=== PATIENT | female | born 1960 | race Caucasian/White ===

== ENCOUNTER 2018-01-25 11:51 | Emergency (ER) | payer BC, SELFPAY ==
--- OUTSIDE RECORDS SUMMARY | 2018-01-25 11:54 | XMS REPORT ---
:1960 Author Organization [employer] Care Team Providers Name Role Phone TravisLuciano Provider Role Unavailable Allergies No Known Allergies Problems Problem Type Condition Code Onset Dates Condition Status Problem Restless leg syndrome G25.81 Active Problem Fibromyalgia M79.7 Active Problem Diabetes type 2, controlled E11.9 Active Problem Benign essential HTN I10 Active Problem Vitamin D deficiency E55.9 Active Problem Rheumatoid arthritis M06.9 Active Problem Morbid obesity E66.01 Active Problem Diabetic neuropathy E11.40 Active Problem Fatty liver K76.0 Active Problem Insomnia G47.00 Active Problem GERD without esophagitis K21.9 Active Problem Ankylosing spondylitis of multiple M45.0 Active sites in spine Problem Hyperlipidemia, mixed E78.2 Active Problem Overactive bladder N32.81 Active Problem Circadian rhythm sleep disorder, 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
--- OUTSIDE RECORDS SUMMARY | 2018-01-25 11:54 | XMS REPORT | Summary of Care ---
:1960 Author Name Jocelynn Thomas M.A. Address Unavailable Unavailable , Care Team Providers Name Role Phone LAVERN Álvarez, RAUL Unavailable Unavailable BLACK HOOPER N.P. Unavailable Unavailable Unavailable Unavailable Unavailable Functional Status Name Dates Details Functional status health issues are not documented Status: Name Dates Details Cognitive status health issues are not documented Status: Problems Name Dates Details Overactive bladder (596.51, N32.81) Status: Active Obesity (278.00, E66.9) Status: Active Hematuria, microscopic (599.72, R31.29) Status: Active Cystitis, acute (595.0, N30.00) Status: Active Post-operative state (V45.89, Z98.890) Status: Active UTI (urinary tract infection) (599.0, N39.0) Status: Active Postop check (V67.00, Z09) Status: Active Enuresis (788.30, R32) Status: Active Chronic cystitis (595.2, N30.20) Status: Active Frequency (788.41, R35.0) Status: Active Obese (278.00, E66.9) Status: Active Recent urinary tract infection (V13.02, Z87.440) Status: Active Yeast vaginitis (112.1, B37.3) Status: Active Vaginitis Status: Active Vaginal burning (625.8, N94.9) Status: Active Vaginal irritation (623.9, N89.8) Status: Active Vaginal discharge (623.5, N89.8) Status: Active Bacterial vaginosis (616.10, N76.0) Status: Active Urinary urgency (788.63, R39.15) Status: Active Nocturia (788.43, R35.1) Status: Active Mixed urge and stress incontinence (788.33, N39.46) Status: Active Medications Name Dates Details Abilify 20 MG Oral Tablet 1 po QHS Refills: 0 Active Savella 50 MG Oral Tablet 1 po QHS Refills: 0 Active Plavix 75 MG Oral Tablet Refills: 0 Active Simvastatin 40 MG Oral Tablet Refills: 0 Active Tolterodine Tartrate ER 4 MG Oral Capsule Extended Release 24 Hour 1 PO QD Quantity: 30 Refills: 5 RUFUS Alexander BLACK Start : 09-Jun-2017 Active SulfaSALAzine 500 MG Oral Tablet Refills: 0 Active Leflunomide 20 MG Oral Tablet Refills: 0 Active CeleBREX CAPS Refills: 0 Active Hydroxychloroquine Sulfate 200 MG Oral Tablet Refills: 0 Active Folic Acid 1 MG Oral Tablet Refills: 0 Active Pilocarpine HCl - 7.5 MG Oral Tablet Refills: 0 Active HydrOXYzine HCl - 25 MG Oral Tablet Refills: 0 Active TraZODone HCl TABS Refills: 0 Active Tresiba FlexTouch SOPN Refills: 0 Active Bydureon PEN Refills: 0 Active Allergies and Adverse Reactions Name Dates Details Lyrica CAPS (Allergy) Status: Active Past Medical History Name Dates Details History of arthritis (V13.4, Z87.39) Status: Resolved History of Chronic obstructive pulmonary disease, unspecified COPD type (496, J44.9) Status: Resolved History of depression (V11.8, Z86.59) Status: Resolved History of diabetes mellitus (V12.29, Z86.39) Status: Resolved History of essential hypertension (V12.59, Z86.79) Status: Resolved History of fibromyalgia (V13.59, Z87.39) Status: Resolved History of Obstructive sleep apnea syndrome (327.23, G47.33) Status: Resolved Procedures Procedure Dates Details History of Ankle Surgery Completed History of Hysteroscopy With Endometrial Ablation Completed Immunization Name Dates Details Immunizations not documented Family History Name Dates Details Family history of diabetes mellitus (V18.0, Z83.3) Status: Active Family history of lung cancer (V16.1, Z80.1) Status: Active Family history of hypertension (V17.49, Z82.49) Status: Active Name Dates Details Family history of stroke (V17.1, Z82.3) Status: Active Name Dates Details Family history of diabetes mellitus (V18.0, Z83.3) Status: Active Social History Name Dates Details - Status: Name Dates Details Never smoker Vital Signs Date Test Result Details :36 BP Systolic 142 mm[Hg] Status: Comments: Location: LUE; Position: Sitting BP Diastolic 80 mm[Hg] Status: Comments: Location: LUE; Position: Sitting Height 71 in Status: Weight 298 lb Status: Body Mass Index Calculated 41.56 kg/m2 Status: Body Surface Area Calculated 2.5 m2 Status: Temperature 97.4 f Status: :26 BP Systolic 140 mm[Hg] Status: Comments: Location: LUE; Position: Sitting BP Diastolic 80 mm[Hg] Status: Comments: Location: LUE; Position: Sitting Height 71 in Status: Weight 298 lb Status: Body Mass Index Calculated 41.56 kg/m2 Status: Body Surface Area Calculated 2.5 m2 Status: Temperature 97.9 f Status: :28 BP Systolic 118 mm[Hg] Status: Comments: Location: LUE; Position: Sitting BP Diastolic 80 mm[Hg] Status: Comments: Location: LUE; Position: Sitting Height 71 in Status: Weight 298 lb Status: Body Mass Index Calculated 41.56 kg/m2 Status: Body Surface Area Calculated 2.5 m2 Status: :20 BP Systolic 160 mm[Hg] Status: Comments: Location: LUE; Position: Sitting BP Diastolic 92 mm[Hg] Status: Comments: Location: LUE; Position: Sitting Height 71 in Status: Weight 298 lb Status: Body Mass Index Calculated 41.56 kg/m2 Status: Body Surface Area Calculated 2.5 m2 Status: Temperature 98.2 f Status: Results Date Description Value Details [id number] [O] Urine Dipstick (In Office) LEUKOCYTES 2+ (Abnormal) NITRITE NEG (Normal) UROBILINOGEN 0.2 (Normal) PROTEIN NEG (Normal) pH 7.0 (Normal) URINE BLOOD 2+ (Abnormal) SPECIFIC GRAVITY 1.010 (Normal) KETONES NEG (Normal) BILIRUBIN NEG (Normal) GLUCOSE 250 MG (Abnormal) [id number] [QLH] BV/ VAGINITIS PANEL DNA PROBE AFFIRM Trichomonas vaginalis DNA Negative Range: Negative Gardnerella vaginalis DNA Positive (Abnormal) Range: Negative Grace sp. DNA Positive (Abnormal) Range: Negative [id number] [QLH] CULTURE, URINE, ROUTINE Comments: Source: Urine, Clean CatchBody Site: ORGANISM Escherichia coli FINAL REPORT >100,000 CFU/mL Escherichia coli 10,000 - 50,000 CFU/mL Skin Nina [id number] [H] E-ONE Comments: Source: Urine, Clean CatchBody Site: ORGANISM Escherichia coli Ciprofloxacin .75 (Susceptible) Levofloxacin 1.5 (Susceptible) Trimethoprim/Sulfamethoxazole 32 (Resistant) Ceftriaxone .094 (Susceptible) Comments: S=Susceptible, R=Resistant, I= Intermediate, N/A=Not Applicable Plan of Care Name Dates Details Planned Observations Planned Goals not documented Planned Encounters Appointment; BLACK HOOPER NP On: 10-Jul-2017 9:00 Interventions Provided PlanPercutaneous tibial nerve stimulation treatment, weekly #4. Questions answered. Discuss procedure, expectations, compliance with medications, diet and activity. Contact office for any questions or concerns. Will continue with Percutaneous tibial nerve stimulation as scheduled in one week, treatment # 5 using right leg Instructions Name Dates Details Instructions not documented Encounters Appointment; RAUL PUCKETT M.D. On: 05-Jul-2015 8:30 Encounter Diagnosis: Problem not documented Appointment; RAUL PUCKETT M.D. On: 02-Aug-2015 8:30 Encounter Diagnosis: Problem not documented Appointment; RAUL PUCKETT M.D. On: 10-Aug-2015 9:30 Encounter Diagnosis: Problem not documented Appointment; RAUL PUCKETT M.D. On: 21-Sep-2015 13:00 Encounter Diagnosis: Problem not documented Appointment; RAUL PUCKETT M.D. On: 20-Oct-2015 10:10 Encounter Diagnosis: Problem not documented Appointment; BLACK HOOPER NP On: 30-Nov-2015 9:00 Encounter Diagnosis: Problem not documented Appointment; BLACK HOOPER NP On: 12-Sep-2016 13:20 Encounter Diagnosis: Problem not documented Appointment; BLACK HOOPER NP On: 28-Nov-2016 10:10 Encounter Diagnosis: Problem not documented Appointment; BLACK HOOPER NP On: 19-Dec-2016 10:10 Encounter Diagnosis: Problem not documented Appointment; BLACK HOOPER NP On: 09-Jun-2017 9:20 Encounter Diagnosis: Problem not documented Appointment; BLACK HOOPER NP On: 12-Jun-2017 13:20 Encounter Diagnosis: Problem not documented Appointment; BLACK HOOPER NP On: 19-Jun-2017 15:20 Encounter Diagnosis: Problem not documented Appointment; BLACK HOOPER NP On: 26-Jun-2017 9:00 Encounter Diagnosis: Problem not documented Appointment; LAVERN HUFFMAN On: 03-Jul-2017 9:00 Encounter Diagnosis: Problem not documented
--- OUTSIDE RECORDS SUMMARY | 2018-01-25 11:54 | XMS REPORT ---
:1960 Author Organization [employer] Care Team Providers Name Role Phone Luciano Travis Provider Role Unavailable Allergies No Known Allergies Problems Problem Type Condition Code Onset Dates Condition Status Assessment GERD without esophagitis K21.9 Active Assessment Overactive bladder N32.81 Active Assessment Insomnia G47.00 Active Assessment Iron deficiency anemia due to D50.0 Active chronic blood loss Problem Obstructive sleep apnea G47.33 Active Assessment Ankylosing spondylitis of multiple M45.0 Active sites in spine Problem Bipolar disorder F31.9 Active Assessment Bipolar disorder F31.9 Active Problem Restless leg syndrome G25.81 Active Problem Fibromyalgia M79.7 Active Problem Diabetes type 2, controlled E11.9 Active Problem Benign essential HTN I10 Active Problem Vitamin D deficiency E55.9 Active Assessment Hyperlipidemia, mixed E78.2 Active Assessment Obstructive sleep apnea G47.33 Active Problem Rheumatoid arthritis M06.9 Active Assessment Rheumatoid arthritis M06.9 Active Problem Morbid obesity E66.01 Active Problem Diabetic neuropathy E11.40 Active Problem Fatty liver K76.0 Active Problem Insomnia G47.00 Active Problem GERD without esophagitis K21.9 Active Problem Ankylosing spondylitis of multiple M45.0 Active sites in spine Assessment Benign essential HTN I10 Active Assessment Diabetes type 2, controlled E11.9 Active Problem Hyperlipidemia, mixed E78.2 Active Problem Overactive bladder N32.81 Active Problem Circadian rhythm sleep disorder, 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 Problem Iron deficiency anemia due to D50.0 Active chronic blood loss Medications Medication Code Code Instructions Start End Status Dosage System Date Date Leflunomide ND 32287771535 20 MG Orally Active 1 tablet Once a day Zestoretic [facility] 53736482898 20-12.5 MG Active 1 tablet Orally Once a day Omeprazole ND 40896828420 40 MG Orally June 25, Active 1 capsule Once a day 2017 Simvastatin ND 57519821654 40 MG Orally Active 1 tablet Once a day in the evening Plaquenil ND 49531387057 200 MG Orally Active 1 tablet Once a day with food or milk Vistaril [facility] 95619026516 25 MG Orally Active 1 capsule every 8 hrs as needed Trospium Chloride [facility] 04152073060 20 MG Orally May Inactive 1 tablet Once a day 16, at bedtime 2018 on an empty stomach Dexilant [facility] 89426806110 60 MG Orally Inactive 1 capsule Once a day Hemocyte Plus [facility] 91115169547 106-1 MG Active 1 capsule Orally Once a day Celebrex [facility] 44269173203 200 MG Orally Active 1 capsule Once a day with food Iron [facility] 53615511772 325 (65 Fe) MG Active 1 tablet Orally Once a day Trazodone HCl [facility] 66430554243 100 MG Orally Active 1 tablet Once a day at bedtime Restasis [facility] 45792999724 0.05 % Active 1 drop Ophthalmic into Twice a day affected eye Tresiba FlexTouch [facility] 16768275764 200 UNIT/ML Active not Subcutaneous defined Savella [facility] 70850460404 50 MG Orally Active 2 tablets Twice a day Abilify [facility] 49857632338 20 MG Orally Active 1 tablet Once a day Bydureon [facility] 65677114497 2 MG Active not Subcutaneous defined Tolterodine [facility] 48858287485 4 MG Orally Active 1 capsule Tartrate ER Once a day Pilocarpine HCl [facility] 27766580570 7.5 MG Orally Active 1 tablet Three times a day Cyclobenzaprine [facility] 67554690050 10 MG Orally Active 1 tablet HCl Three times a as needed day Folic Acid [facility] 33330933498 1 MG Orally Active 1 tablet Once a day Results No Known Results Summary Purpose [employer] Submission
--- OUTSIDE RECORDS SUMMARY | 2018-01-25 11:54 | XMS REPORT ---
:1960 Author Organization [employer] Care Team Providers Name Role Phone TravisLisah Provider Role Unavailable Allergies, Adverse Reactions, Alerts Substance Reaction Event Type Invokana Info Not Available Drug Allergy Metformin HCl Info Not Available Drug Allergy Lyrica Info Not Available Drug Allergy Glimepiride Info Not Available Drug Allergy Problems Problem Type Condition Code Onset Dates Condition Status Problem Diabetes type 2, controlled E11.9 Active Problem Diabetic neuropathy E11.40 Active Problem Fibromyalgia M79.7 Active Problem Rheumatoid arthritis M06.9 Active Assessment Primary osteoarthritis of both knees M17.0 Active Problem Benign essential HTN I10 Active Assessment Rheumatoid arthritis M06.9 Active Assessment Ankylosing spondylitis of multiple M45.0 Active sites in spine Problem Primary osteoarthritis of both knees M17.0 Active Problem Insomnia G47.00 Active Problem Morbid obesity E66.01 Active Problem Vitamin D deficiency E55.9 Active Problem Fatty liver K76.0 Active Problem Ankylosing spondylitis of multiple M45.0 Active sites in spine Problem Circadian rhythm sleep disorder, 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 Problem GERD without esophagitis K21.9 Active Problem Overactive bladder N32.81 Active Problem Obstructive sleep apnea G47.33 Active Problem Iron deficiency anemia due to D50.0 Active chronic blood loss Problem Bipolar disorder F31.9 Active Problem Hyperlipidemia, mixed E78.2 Active Problem Restless leg syndrome G25.81 Active Medications Medication Code Code Instructions Start End Status Dosage System Date Date Hydrocodone-Acetam ND 23117795682 5-325 MG Orally Nov 10, Active 1 tablet inophen every 12 hrs 2018 as needed Celebrex ND 26361329998 200 MG Orally Active 1 capsule Once a day with food Zestoretic ND 20706737027 20-12.5 MG Active 1 tablet Orally Once a day Pilocarpine HCl ND 03606913856 7.5 MG Orally Active 1 tablet Three times a day Hemocyte Plus ND 74608497876 106-1 MG Orally Active 1 capsule Once a day Toujeo SoloStar ND 48029211704 300u/ml Active not subcutaneously defined once daily Vistaril [facility] 24128214432 25 MG Orally Active 1 capsule every 8 hrs as needed Cyclobenzaprine [facility] 49777050493 10 MG Orally Active 1 tablet HCl Three times a as needed day Restasis [facility] 90305125212 0.05 % Active 1 drop Ophthalmic Twice into a day affected eye Leflunomide [facility] 64801605894 20 MG Orally Active 1 tablet Once a day Bydureon [facility] 51163833023 2 MG Active not Subcutaneous defined Omeprazole [facility] 04466686235 40 MG Orally Active 1 capsule Once a day Simvastatin ND 24435605838 40 MG Orally Active 1 tablet Once a day in the evening Tolterodine [facility] 25029840692 4 MG Orally Once Active 1 capsule Tartrate ER a day Savella [facility] 60706167478 50 MG Orally Active 2 tablets Twice a day Abilify [facility] 02559343125 20 MG Orally Active 1 tablet Once a day Iron [facility] 68826178809 325 (65 Fe) MG Active 1 tablet Orally Once a day Humalog [facility] 98028149343 100 UNIT/ML Active as Subcutaneous directed Plaquenil [facility] 72588561538 200 MG Orally Active 1 tablet Once a day with food or milk Folic Acid [facility] 42828441750 1 MG Orally Once Active 1 tablet a day Trazodone HCl [facility] 51672515097 100 MG Orally Active 1 tablet Once a day at bedtime Results No Known Results Summary Purpose [employer] Submission
--- OUTSIDE RECORDS SUMMARY | 2018-01-25 11:54 | XMS REPORT ---
:1960 Author Organization [employer] Care Team Providers Name Role Phone Luciano Travis Provider Role Unavailable Allergies No Known Allergies Problems Problem Type Condition Code Onset Dates Condition Status Assessment GERD without esophagitis K21.9 Active Assessment Overactive bladder N32.81 Active Assessment Insomnia G47.00 Active Assessment Iron deficiency anemia due to D50.0 Active chronic blood loss Assessment Ankylosing spondylitis of multiple M45.0 Active sites in spine Problem Obstructive sleep apnea G47.33 Active Assessment Bipolar disorder F31.9 Active Problem Bipolar disorder F31.9 Active Assessment Rheumatoid arthritis M06.9 Active Problem Restless leg syndrome G25.81 Active Problem Fibromyalgia M79.7 Active Problem Diabetes type 2, controlled E11.9 Active Problem Benign essential HTN I10 Active Problem Vitamin D deficiency E55.9 Active Assessment Benign essential HTN I10 Active Assessment Hyperlipidemia, mixed E78.2 Active Problem Rheumatoid arthritis M06.9 Active Assessment Obstructive sleep apnea G47.33 Active Problem Morbid obesity E66.01 Active Problem Diabetic neuropathy E11.40 Active Problem Fatty liver K76.0 Active Problem Insomnia G47.00 Active Problem GERD without esophagitis K21.9 Active Problem Ankylosing spondylitis of multiple M45.0 Active sites in spine Assessment Diabetes type 2, controlled E11.9 Active Problem Hyperlipidemia, mixed E78.2 Active Problem Overactive bladder N32.81 Active Problem Circadian rhythm sleep disorder, 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 Problem Iron deficiency anemia due to D50.0 Active chronic blood loss Medications Medication Code Code Instructions Start End Status Dosage System Date Date Celebrex [facility] 63875863485 200 MG Orally Active 1 capsule Once a day with food Cyclobenzaprine [facility] 04958784640 10 MG Orally Active 1 tablet HCl Three times a as needed day Hemocyte Plus [facility] 94585090404 106-1 MG Orally Active 1 capsule Once a day Leflunomide [facility] 16621084081 20 MG Orally Active 1 tablet Once a day Omeprazole [facility] 55293158997 40 MG Orally Active 1 capsule Once a day Savella [facility] 59428669741 50 MG Orally Active 2 tablets Twice a day Simvastatin ND 75495190339 40 MG Orally Active 1 tablet Once a day in the evening Pilocarpine HCl [facility] 35329741984 7.5 MG Orally Active 1 tablet Three times a day Zestoretic [facility] 94237994202 20-12.5 MG Active 1 tablet Orally Once a day Iron [facility] 35656899187 325 (65 Fe) MG Active 1 tablet Orally Once a day Humalog [facility] 48924091188 100 UNIT/ML Active as Subcutaneous directed Abilify [facility] 99301920350 20 MG Orally Active 1 tablet Once a day Restasis [facility] 51236434907 0.05 % Active 1 drop Ophthalmic Twice into a day affected eye Bydureon [facility] 02954436787 2 MG Active not Subcutaneous defined Plaquenil [facility] 24464317158 200 MG Orally Active 1 tablet Once a day with food or milk Folic Acid [facility] 91158004583 1 MG Orally Once Active 1 tablet a day Tresiba FlexTouch [facility] 83423422793 200 UNIT/ML Inactive not Subcutaneous defined Toujeo SoloStar [facility] 78436187483 300u/ml Active not subcutaneously defined once daily Vistaril [facility] 13882066961 25 MG Orally Active 1 capsule every 8 hrs as needed Trazodone HCl [facility] 16894276273 100 MG Orally Active 1 tablet Once a day at bedtime Tolterodine [facility] 23769009126 4 MG Orally Once Active 1 capsule Tartrate ER a day Results No Known Results Summary Purpose [employer] Submission
--- OUTSIDE RECORDS SUMMARY | 2018-01-25 11:54 | XMS REPORT | Clinical Summary ---
:1960 Author Organization [facility] Address [address] [place] [address] Care Team Providers Name Role Phone Asked, No Pcp Primary Care Provider Unavailable Allergies Active Allergy Reactions Severity Noted Date Comments Lactase GI Intolerance 12/20/2015 Gabapentin Other (See Comments) 12/20/2015 Got real dizzy Pregabalin Swelling 12/20/2015 Medications Medication Sig Dispensed Refills Start Date End Date Status folic acid (FOLVITE) 1 Take 2 mg by 0 Active MG tablet mouth daily. METHOTREXATE SODIUM INJ Inject 0.7 mL as 0 Active directed once a week at 4pm. celecoxib (CeleBREX) 200 Take 200 mg by 0 Active MG capsule mouth 2 (two) times a day. hydroxychloroquine Take by mouth 2 0 Active (PLAQUENIL) 200 mg (two) times a tablet day. cyclobenzaprine Take 10 mg by 0 Active (FLEXERIL) 10 MG tablet mouth 3 (three) times a day. PILOCARPINE HCL ORAL Take 7.5 mg by 0 Active mouth 3 (three) times a day. LISINOPRIL-HCTZ 20-12.5 Take 2 tablets 0 Active MG COMBO DOSE by mouth daily. dexlansoprazole Take 60 mg by 0 Active (DEXILANT) 60 mg capsule mouth daily. exenatide microspheres Inject 2 mg 0 Active (BYDUREON) 2 mg/0.65 mL under the skin pen injector every 7 days. insulin degludec Inject 120 Units 0 Active (TRESIBA FLEXTOUCH under the skin U-100) 100 unit/mL (3 daily. mL) insulin pen simvastatin (ZOCOR) 40 Take 40 mg by 0 Active MG tablet mouth nightly. aspirin (ECOTRIN) 81 MG Take 81 mg by 0 Active enteric coated tablet mouth daily. clopidogrel (PLAVIX) 75 Take 75 mg by 0 Active mg tablet mouth daily. ARIPiprazole (ABILIFY) Take 20 mg by 0 Active 10 MG tablet mouth daily. milnacipran (SAVELLA) 50 Take 50 mg by 0 Active mg tablet mouth 2 (two) times a day. suvorexant (BELSOMRA) 20 Take by mouth 0 Active mg tablet nightly. armodafinil (NUVIGIL) Take 250 mg by 0 Active 250 mg tablet mouth daily. ALPRAZolam (NIRAVAM) 0.5 Take 0.5 mg by 0 Active MG disintegrating tablet mouth 2 (two) times a day as needed for anxiety. cycloSPORINE (RESTASIS) Administer 1 0 Active 0.05 % ophthalmic drop to both emulsion eyes 2 (two) times a day. bromfenac (XIBROM) 0.09 Administer 1 0 Active % ophthalmic solution drop into the left eye daily. cranberry extract Take 1 capsule 0 Active (ELLURA) 200 mg capsule by mouth daily. capsule Active Problems Not on file Family History Medical History Relation Name Comments Stroke Father Lung cancer Mother Relation Name Status Comments Father Mother Social History Tobacco Use Types Packs/Day Years Used Date Never Smoker Tobacco Cessation: Counseling Given: No Alcohol Use Drinks/Week oz/Week Comments No Sex Assigned at Date Recorded Not on file Job Start Date Occupation Industry Not on file Not on file Not on file Travel History Travel Start Travel End No recent travel history available. Last Filed Vital Signs Not on file Plan of Treatment Not on file Results Not on fileafter 01/24/2017 Insurance Payer Benefit Plan / Group Subscriber ID Type Phone Address [facility] O/FEDERAL xxxxxxxxxxxx PPO EMPL PPO CVCP [facility] xxxxxxxxxxxx PPO [address] [facility], [address] [place] [address] Advance Directives Patient has advance care planning documents on file. For more information, please contact:[place] [address]
[2018-01-25 12:48] LABS: Blood Gas Oxyhemoglobin 90.7 % (94-97); Blood O2 Saturation 92.8 % (92-98.5)
[2018-01-25] MEDS ORDERED: NA CHLORIDE 0.9% 1,000 ML ONE (13:10)
[2018-01-25 13:16] LABS: Urine Blood TRACE (NEG); Urine Glucose TRACE (NEG); Urine Protein TRACE (NEG); Urine pH 5.5 (5.0-7.0)
[2018-01-25 13:23] LABS: Absolute Monocytes 0.5 K/uL (0.1-1.3); Absolute Neutrophil 5.7 K/uL (1.8-8.0); Basophils % 0.6 % (0-1.3); Eosinophils % 1.2 % (0-4.4); Hematocrit 39.7 % (36.0-45.0); Lymphocytes % 24.2 % (15.3-44.8); MCH 27.3 pg (27.0-35.0); MCV 82.1 fL (80-100); Monocytes % 6.3 % (3.3-12.3); RBC Red Blood Cell Count 4.83 M/uL (3.86-4.86)
[2018-01-25 13:26] LABS: Urine Bacteria 20-50 /HPF (<20); Urine Culture Reflex Order NOT NEEDED; Urine RBC 20-50 /HPF (NONE SEEN)
[2018-01-25 13:39] LABS: ALT/SGPT 47 U/L (12-78); AST/SGOT 31 U/L (15-37); Albumin 3.4 g/dL (3.4-5.0); Alkaline Phosphatase 120 U/L (45-117); BUN Blood Urea Nitrogen 14 mg/dL (7-18); Bicarbonate 31 mmol/L (21-32); Bilirubin Direct 0.1 mg/dL (0-0.2); Bilirubin Total 0.3 mg/dL (0.2-1.0); Glucose Level 72 mg/dL (74-106); Lipase 198 U/L (73-393); Potassium 3.6 mmol/L (3.5-5.1); Protein, Total 8.3 g/dL (6.4-8.2); Sodium Level 137 mmol/L (136-145)
--- NOTE | 2018-01-25 15:05 | RAD REPORT ---
EXAM DESCRIPTION: CT - Abdomen Pelvis W Contrast - 01/25/2018 2:54 pm CLINICAL HISTORY: Abdominal pain COMPARISON: None. TECHNIQUE: Biphasic, helical CT imaging of the abdomen and pelvis was performed following 100 ml non -ionic IV contrast. No oral contrast administered. All CT scans are performed using dose optimization technique as appropriate and may include automated exposure control or mA/KV adjustment according to patient size. FINDINGS: No suspicious findings in the lung bases. Liver shows diffuse fatty infiltration. No focal liver lesion. Spleen and pancreas show no suspicious findings. Gallbladder and biliary tree are also without suspicious finding. Symmetric renal function is seen with no hydronephrosis or suspicious renal mass. No pyelonephritis o r acute parenchymal process. No bladder abnormalities. No adrenal abnormalities. No dilated bowel loops or bowel wall thickening. No free air, free fluid or inflammatory stranding. No hernia, mass or bulky lymphadenopathy. No uterus or right ovarian abnormality. Left ovary demonst rates a 2.4 centimeter ovarian or paraovarian cyst. Long-term significance is doubtful. No suspicious bony findings. IMPRESSION: Contrast enhanced CT abdomen and pelvis showing no acute finding. Approximately 2.4 centimeter left ovarian or paraovarian cyst. Diffuse fatty infiltration of the liver.
[2018-01-25] MEDS ORDERED: CEFTRIAXONE/SWI 1gm 1 GM/10 ML SYR ONE (15:38)
--- NOTE | 2018-01-25 16:40 | RAD REPORT ---
EXAM DESCRIPTION: RAD - Chest Single View - 01/25/2018 4:00 pm CLINICAL HISTORY: Shortness of breath COMPARISON: November 2015 TECHNIQUE: AP portable chest image was obtained 1547 hours . FINDINGS: Lung volumes are low. Large body habitus and under penetrated portable technique accentuat e heart, vasculature and lung markings. No focal process seen. Failure and volume overload are not waldron spected. Heart and vasculature are normal. No measurable pleural effusion and no pneumothorax. No acu te bony abnormality seen. No acute aortic findings suspected. IMPRESSION: Limited portable study without acute cardiopulmonary finding. No significant change from comparison.
--- NOTE | 2018-01-25 16:55 | ER ---
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 Transition of care: patient was not received from another setting of care. Onset of symptoms was January 25, 2018. Risk Assessment: Do you want to hurt yourself or someone else? Patient reports no desire to harm self or others. Initial Sepsis Screen: Does the patient meet any 2 criteria? No. Patient's initial sepsis screen is negative. Does the patient have a suspected source of infection? No. Patient's initial sepsis screen is negative. Care prior to arrival: None. 11:59 Method Of Arrival: Ambulatory 11:59 Acuity: JERRY 3 hj Triage Assessment: 12:02 General: Appears in no apparent distress. uncomfortable, Behavior is cooperative, hj appropriate for age, agitated. Pain: Denies pain. Historical: - Allergies: 12:02 Lyrica; hj 12:02 Methylprednisolone; hj - PMHx: 12:02 Depression; Diabetes - NIDDM; Hyperlipidemia; Hypertension; insomnia; osteoarthritis; hj Rheumatoid Arthritis; - PSHx: 12:02 stem cell therapy on ankle; tendon in left leg; Uretheral; rt arm; Tonsillectomy; Tubal hj ligation; - Immunization history:: Adult Immunizations not up to date. - Social history:: Smoking status: Patient/guardian denies using tobacco, Patient/guardian denies using alcohol. - Ebola Screening: : Patient negative for fever greater than or equal to 101.5 degrees Fahrenheit, and additional compatible Ebola Virus Disease symptoms Patient denies exposure to infectious person Patient denies travel to an Ebola-affected area in the 21 days before illness onset. Screenin:03 Abuse screen: Denies threats or abuse. Denies injuries from another. Nutritional hj screening: No deficits noted. Tuberculosis screening: No symptoms or risk factors identified. Fall Risk None identified. Assessment: 12:12 General: Appears in no apparent distress. comfortable, Behavior is calm, cooperative, aj1 appropriate for age. Pain: Denies pain. Neuro: Level of Consciousness is awake, alert, obeys commands, Speech is normal, Facial symmetry appears normal, Reports fatigue, light headedness. Cardiovascular: Patient's skin is warm and dry. Respiratory: Airway is patent Respiratory effort is even, unlabored, Respiratory pattern is regular, symmetrical. GI: Abdomen is non-distended, Reports nausea, Patient currently denies diarrhea, vomiting. : No signs and/or symptoms were reported regarding the genitourinary system. EENT: No signs and/or symptoms were reported regarding the EENT system. Derm: No signs and/or symptoms reported regarding the dermatologic system. Skin is pink, warm \T\ dry. normal. Musculoskeletal: No signs and/or symptoms reported regarding the musculoskeletal system. Circulation, motion, and sensation intact. 13:19 Reassessment: Patient appears in no apparent distress at this time. No changes from aj1 previously documented assessment. Patient and/or family updated on plan of care and expected duration. Pain level reassessed. Patient is alert, oriented x 3, equal unlabored respirations, skin warm/dry/pink. 14:30 Reassessment: Patient appears in no apparent distress at this time. No changes from aj1 previously documented assessment. Patient and/or family updated on plan of care and expected duration. Pain level reassessed. Patient is alert, oriented x 3, equal unlabored respirations, skin warm/dry/pink. 15:32 Reassessment: Patient appears in no apparent distress at this time. No changes from aj1 previously documented assessment. Patient and/or family updated on plan of care and expected duration. Pain level reassessed. Patient is alert, oriented x 3, equal unlabored respirations, skin warm/dry/pink. 16:30 Reassessment: Patient appears in no apparent distress at this time. No changes from aj1 previously documented assessment. Patient and/or family updated on plan of care and expected duration. Pain level reassessed. Patient is alert, oriented x 3, equal unlabored respirations, skin warm/dry/pink. 17:31 Reassessment: Patient appears in no apparent distress at this time. No changes from aj1 previously documented assessment. Patient and/or family updated on plan of care and expected duration. Pain level reassessed. Patient is alert, oriented x 3, equal unlabored respirations, skin warm/dry/pink. Vital Signs: 12:03 BP 122 / 55; Pulse 103; Resp 18; Temp 98.8(O); Pulse Ox 95% ; Weight 128.82 kg; Height hj 5 ft. 11 in. (180.34 cm); Pain 0/10; 13:19 BP 132 / 75; Pulse 92; Resp 18; Pulse Ox 99% on R/A; aj1 14:30 BP 128 / 52; Pulse 79; Resp 18; Pulse Ox 94% on R/A; aj1 15:32 BP 136 / 73; Pulse 88; Resp 20; Pulse Ox 98% on R/A; aj1 12:03 Body Mass Index 39.61 (128.82 kg, 180.34 cm) ED Course: 11:54 Patient arrived in ED. as 11:54 Luciano Travis DO is Private Physician. as 12:01 Triage completed. hj 12:03 Arm band placed on right wrist. hj 12:03 Patient has correct armband on for positive identification. Placed in gown. Bed in low hj position. Call light in reach. Side rails up X 1. 12:07 James Gutierrez PA is PHCP. [facility] 12:07 Mekhi Laureano MD is Attending Physician. [facility] 12:12 Alycia Ramirez, DANTE is Primary Nurse. aj1 12:12 No provider procedures requiring assistance completed. aj1 12:21 Urine collected: clean catch specimen, cloudy. 3 14:[address] bq 14:55 CT completed. Patient tolerated procedure well. Patient moved back from CT. bq 15:00 EKG done, by ED staff, reviewed by James RODGERS troponin and D Dimer drawn by nh and 3 sent to lab. 15:58 X-ray completed. Portable x-ray completed in exam room. Patient tolerated procedure sg4 well. 16:54 Luciano Travis DO is Referral Physician. [facility] 17:31 IV discontinued, intact, bleeding controlled, No redness/swelling at site. Pressure aj1 dressing applied. Administered Medications: 13:05 Drug: NS 0.9% 1000 ml Route: IV; Rate: 1 bolus; Site: right antecubital; aj1 14:10 Follow up: IV Status: Completed infusion; IV Intake: 1000ml aj1 15:36 Drug: Rocephin - (cefTRIAXone) 1 grams Route: IVPB; Infused Over: 30 mins; Site: right [facility] antecubital; 15:37 Follow up: IV Status: Completed infusion; given SIVP per hospital policy aj1 Point of Care Testing: Blood Glucose: 12:03 Blood Glucose: 156 mg/dL; hj Ranges: Intake: 14:10 IV: 1000ml; Total: 1000ml. aj1 Outcome: 16:54 Discharge ordered by . jf 17:31 Discharged to home ambulatory. aj1 17:31 Condition: good 17:31 Discharge instructions given to patient, Instructed on discharge instructions, follow up and referral plans. medication usage, Demonstrated understanding of instructions, follow-up care, medications, Prescriptions given X 1. 17:33 Patient left the ED. aj Signatures: Alycia Ramirez RN RN aj James Gutierrez PA PA jmm Quilty, Betty bq Martinez, Amelia as Joaquin, Henry, RN RN Cady Nix 3 Shirlene Brar 4 Corrections: (The following items were deleted from the chart) 12:07 12:03 128.82 kg; Height 5 ft. 11 in.; BMI: 39.6; Pain 0/10; hj hj 12:08 12:03 Pulse 103bpm; Resp 18bpm; Pulse Ox 95%; Temp 98.8F Oral; 128.82 kg; Height 5 ft. hj 11 in.; BMI: 39.6; Pain 0/10; hj
--- NOTE | 2018-01-25 16:55 | EDPHYS ---
Physician Documentation [facility] Name: Bob Armstrong Age: 57 yrs Sex: Female : 1960 Arrival Date: 01/25/2018 Time: 11:54 Bed 7 Private MD: Luciano Travis ED Physician Mekhi Laureano HPI: 01/25 12:20 This 57 yrs old Female presents to ER via Ambulatory with complaints of High jmm Blood Sugar. 12:20 The patient or guardian reports hyperglycemia. Onset: The symptoms/episode jmm began/occurred gradually, 2 month(s) ago. Associated signs and symptoms: Pertinent positives:. This is a 57 year old female with a history of IDDM, HLP, HTN that presents to the ED with concerns for DKA. Patient states over the past 2 months her blood glucose has been difficult to control. Patient reports worsening fatigue today. Patient also states experiencing excessive thirst, weight loss, shortness of breath, lower back pain, intermittent episodes of abdominal pain. Patient denies cough, fever, chills sore throat. . Historical: - Allergies: 12:02 Lyrica; hj 12:02 Methylprednisolone; hj - PMHx: 12:02 Depression; Diabetes - NIDDM; Hyperlipidemia; Hypertension; insomnia; osteoarthritis; hj Rheumatoid Arthritis; - PSHx: 12:02 stem cell therapy on ankle; tendon in left leg; Uretheral; rt arm; Tonsillectomy; Tubal hj ligation; - Immunization history:: Adult Immunizations not up to date. - Social history:: Smoking status: Patient/guardian denies using tobacco, Patient/guardian denies using alcohol. - Ebola Screening: : Patient negative for fever greater than or equal to 101.5 degrees Fahrenheit, and additional compatible Ebola Virus Disease symptoms Patient denies exposure to infectious person Patient denies travel to an Ebola-affected area in the 21 days before illness onset. ROS: 12:20 Eyes: Negative for injury, pain, redness, and discharge, ENT: Negative for injury, jmm pain, and discharge, Cardiovascular: Negative for chest pain, palpitations, and edema. 12:20 Constitutional: Positive for malaise. 12:20 Respiratory: Positive for shortness of breath. 12:20 Abdomen/GI: Positive for abdominal pain, nausea. 12:20 Back: Positive for pain at rest. 12:20 Neuro: Positive for visual changes, weakness. 12:20 All other systems are negative. Exam: 12:20 Constitutional: This is a well developed, well nourished patient who is awake, alert, jmm and in no acute distress. Head/Face: atraumatic. Eyes: EOMI, no conjunctival erythema appreciated ENT: Moist Mucus Membranes Neck: Trachea midline, Supple Chest/axilla: Normal chest wall appearance and motion. Cardiovascular: Regular rate and rhythm. No edema appreciated Respiratory: Normal respirations, no respiratory distress appreciated Abdomen/GI: Non distended, soft Back: Normal ROM Skin: General appearance color normal MS/ Extremity: Moves all extremities, no obvious deformities appreciated, no edema noted to the lower extremities Neuro: Awake and alert, normal gait Psych: Behavior is normal, Mood is normal, Patient is cooperative and pleasant 12:20 Cardiovascular: Rate: normal, Rhythm: regular. 12:20 Respiratory: the patient does not display signs of respiratory distress, Respirations: normal, Breath sounds: are clear throughout. Vital Signs: 12:03 BP 122 / 55; Pulse 103; Resp 18; Temp 98.8(O); Pulse Ox 95% ; Weight 128.82 kg; Height 5 ft. 11 in. (180.34 cm); Pain 0/10; 13:19 BP 132 / 75; Pulse 92; Resp 18; Pulse Ox 99% on R/A; aj1 14:30 BP 128 / 52; Pulse 79; Resp 18; Pulse Ox 94% on R/A; aj1 15:32 BP 136 / 73; Pulse 88; Resp 20; Pulse Ox 98% on R/A; aj1 12:03 Body Mass Index 39.61 (128.82 kg, 180.34 cm) MDM: 12:20 Patient medically screened. [facility] 16:54 Data reviewed: vital signs, nurses notes, lab test result(s), EKG, radiologic studies. [facility] Counseling: I had a detailed discussion with the patient and/or guardian regarding: the historical points, exam findings, and any diagnostic results supporting the discharge/admit diagnosis, lab results, radiology results, the need for outpatient follow up, to return to the emergency department if symptoms worsen or persist or if there are any questions or concerns that arise at home. 16:54 ED course: patient is alert and non toxic in appearance in the ED. patient states jmm feeling much better in the ED. Acute symptoms appear to be due to hypoglycemia. patient prescribed oral antibiotics for uti. patient is advised to follow up with pcp for reevaluation and otherwise given strict return precautions. . 01/25 12:21 Order name: Urine Microscopic Only [facility] 01/25 12:21 Order name: Urine Culture [facility] 01/25 12:21 Order name: Basic Metabolic Panel [facility] 01/25 12:21 Order name: CBC with Diff [facility] 01/25 12:21 Order name: Creatinine for Radiology [facility] 01/25 12:21 Order name: Hepatic Function [facility] 01/25 12:21 Order name: Lipase [facility] 01/25 12:21 Order name: Urine Microscopic Only [facility] 01/25 12:21 Order name: Urine Culture [facility] 01/25 12:21 Order name: Ketone, Serum [facility] 01/25 12:21 Order name: ABG [facility] 01/25 12:29 Order name: Urine Dipstick--Ancillary (enter results) [facility] 01/25 12:32 Order name: Urine --Ancillary (enter results) [facility] 01/25 13:16 Order name: Urine Dipstick-Ancillary; Complete Time: 13:19 [facility] 01/25 13:18 Order name: Urine --Ancillary; Complete Time: 13:19 [facility] 01/25 13:26 Order name: CBC with Automated Diff; Complete Time: 13:28 [facility] 01/25 13:27 Order name: Urine Microscopic Only; Complete Time: 13:28 [facility] 01/25 13:31 Order name: Acetone Level; Complete Time: 13:44 [facility] 01/25 13:35 Order name: Creatinine (Radiology Only); Complete Time: 13:44 [facility] 01/25 13:36 Order name: ABG Arterial Blood Gas; Complete Time: 13:44 [facility] 01/25 13:39 Order name: Basic Metabolic Panel; Complete Time: 13:44 [facility] 01/25 13:39 Order name: Liver (Hepatic) Function; Complete Time: 13:44 [facility] 01/25 13:39 Order name: Lipase; Complete Time: 13:44 [facility] 01/25 13:50 Order name: Troponin (emerg Dept Use Only) [facility] 01/25 13:52 Order name: D-Dimer [facility] 01/25 14:20 Order name: D-Dimer; Complete Time: 14:26 [facility] 01/25 14:29 Order name: CT Abd/Pelvis - W/Contrast [facility] 01/25 15:05 Order name: CT; Complete Time: 15:14 [facility] 01/25 15:10 Order name: Troponin (Emerg Dept Use Only); Complete Time: 15:14 [facility] 01/25 15:15 Order name: Chest Single View XRAY [facility] 01/25 12:21 Order name: IV Saline Lock; Complete Time: 13:06 [facility] 01/25 12:21 Order name: Labs collected and sent; Complete Time: 13:06 [facility] 01/25 12:21 Order name: Urine Dipstick-Ancillary (obtain specimen); Complete Time: 12:26 [facility] 01/25 13:50 Order name: EKG - Nurse/Tech; Complete Time: 14:06 [facility] 01/25 14:06 Order name: Diet Regular; Complete Time: 14:06 [facility] 01/25 16:41 Order name: RAD; Complete Time: 16:46 EDMS Administered Medications: 13:05 Drug: NS 0.9% 1000 ml Route: IV; Rate: 1 bolus; Site: right antecubital; aj 14:10 Follow up: IV Status: Completed infusion; IV Intake: 1000ml [facility] 15:36 Drug: Rocephin - (cefTRIAXone) 1 grams Route: IVPB; Infused Over: 30 mins; Site: right [facility] antecubital; 15:37 Follow up: IV Status: Completed infusion; given SIVP per hospital policy [facility] Point of Care Testing: Blood Glucose: 12:03 Blood Glucose: 156 mg/dL; hj Ranges: Critical Glucose Levels:Adult <50 mg/dl or >400 mg/dl <40 mg/dl or >180 mg/dl Disposition: 18:49 Co-signature as Attending Physician, Mekhi Laureano MD. Disposition: 01/25/18 16:54 Discharged to Home. Impression: Urinary tract infection, site not specified. - Condition is Stable. - Discharge Instructions: Urinary Tract Infection, Adult. - Prescriptions for Cephalexin 500 mg Oral Capsule - take 1 capsule by ORAL route every 12 hours for 10 days; 20 capsule. - Medication Reconciliation Form, Thank You Letter, Antibiotic Education, Prescription Opioid Use form. - Follow up: Luciano Travis, ; When: Tomorrow; Reason: Recheck today's complaints, Continuance of care, Re-evaluation by your physician. Signatures: Dispatcher [employer] EDAlycia Salazar RN RN aj1 James Gutierrez PA PA jmm Joaquin, Henry RN RN hj Mekhi Laureano MD MD gs Corrections: (The following items were deleted from the chart) 17:33 16:54 01/25/2018 16:54 Discharged to Home. Impression: Urinary tract infection, site aj1 not specified. Condition is Stable. Forms are Medication Reconciliation Form, Thank You Letter, Antibiotic Education, Prescription Opioid Use. Follow up: Luciano Travis; When: Tomorrow; Reason: Recheck today's complaints, Continuance of care, Re-evaluation by your physician. jf
[2018-01-25 17:44] VITALS: TEMP 98.8
[2018-01-25 17:48] VITALS: BP 136/73; O2SAT 98
--- NOTE | 2018-01-26 07:05 | EKG ---
Test Date: 2018-01-25 Test Time: 14:10:31 Mold Dresser: BIJAL MEASUREMENT RESULTS: Intervals: Rate: 82 LA: 166 QRSD: 96 QT: 450 QTc: 525 [place]: P: 57 LA: 166 QRS: 33 T: 32 INTERPRETIVE STATEMENTS: Normal sinus rhythm Low voltage QRS Prolonged QT Abnormal ECG Compared to ECG 01/11/2016 10:57:17 ST (T wave) deviation no longer present Electronically Signed On 01-26-18 07:04:16 BULB SORTER by Andreas Corona
== END 2018-01-25 17:33 | disposition home or self-care (01) ==
LOC: ER 11:51
DX: N39.0 Urinary tract infection, site not specified (principal); I10 Essential (primary) hypertension; E11.9 Type 2 diabetes mellitus without complications; Z88.8 Allergy status to other drugs, medicaments and biological substances
CPT/HCPCS: 36415; 71045; 74177; 80048; 80076; 81003; 81015; 81025; 82010; 82805; 82962; 83690; 84484; 85025; 85379; 93005; 96361; 96374; 99284; J0696; J7030; Q9967

== ENCOUNTER 2018-03-09 20:50 | Emergency (ER) | payer SELFPAY ==
--- OUTSIDE RECORDS SUMMARY | 2018-03-09 20:53 | XMS REPORT | Clinical Summary ---
:1960 Author Organization [facility] Address [address] [place] [address] Care Team Providers Name Role Phone Asked, [...] Not on file Results Not on fileafter 03/08/2017 Insurance Payer Benefit Plan / Group Subscriber ID Type Phone Address [facility] O/[facility]ER[facility] xxxxxxxxxxxx PPO EMPL PPO CVCP [facility] xxxxxxxxxxxx PPO [address] [place] [address] Advance Directives Patient has advance care planning documents on file. For more information, please contact:[place] [address]
--- OUTSIDE RECORDS SUMMARY | 2018-03-09 20:53 | XMS REPORT ---
[...] End Status Dosage System Date Date Celebrex [facility] 01772767082 200 MG Orally Active 1 capsule Once a day with food Cyclobenzaprine [facility] 19273807957 10 MG Orally Active 1 tablet HCl Three times a as needed day Hemocyte Plus [facility] 46825564645 106-1 MG Orally Active 1 capsule Once a day Leflunomide [facility] 12636732518 20 MG Orally Active 1 tablet Once a day Omeprazole [facility] 81010063484 40 MG Orally Active 1 capsule Once a day Savella [facility] 95988503640 50 MG Orally Active 2 tablets Twice a day Simvastatin ND 08320931376 40 MG Orally Active 1 tablet Once a day in the evening Pilocarpine HCl [facility] 57512275868 7.5 MG Orally Active 1 tablet Three times a day Zestoretic [facility] 69993443281 20-12.5 MG Active 1 tablet Orally Once a day Iron [facility] 98197504364 325 (65 Fe) MG Active 1 tablet Orally Once a day Humalog [facility] 88824451372 100 UNIT/ML Active as Subcutaneous directed Abilify [facility] 21933179835 20 MG Orally Active 1 tablet Once a day Restasis [facility] 57242276497 0.05 % Active 1 drop Ophthalmic Twice into a day affected eye Bydureon [facility] 07523780087 2 MG Active not Subcutaneous defined Plaquenil [facility] 66455370276 200 MG Orally Active 1 tablet Once a day with food or milk Folic Acid [facility] 24260905278 1 MG Orally Once Active 1 tablet a day Tresiba FlexTouch [facility] 62588910521 200 UNIT/ML Inactive not Subcutaneous defined Toujeo SoloStar [facility] 78605379408 300u/ml Active not subcutaneously defined once daily Vistaril [facility] 90931358699 25 MG Orally Active 1 capsule every 8 hrs as needed Trazodone HCl [facility] 26938007629 100 MG Orally Active 1 tablet Once a day at bedtime Tolterodine [facility] 85526759762 4 MG Orally Once Active 1 capsule Tartrate ER a day Results No Known Results Summary Purpose eClinicalWorks Submission
--- OUTSIDE RECORDS SUMMARY | 2018-03-09 20:53 | XMS REPORT ---
[...] Status Dosage System Date Date Leflunomide ND 67759526520 20 MG Orally Active 1 tablet Once a day Zestoretic [facility] 11760269255 20-12.5 MG Active 1 tablet Orally Once a day Omeprazole ND 06593618916 40 MG Orally June 25, Active 1 capsule Once a day 2017 Simvastatin ND 18937173742 40 MG Orally Active 1 tablet Once a day in the evening Plaquenil ND 98859565114 200 MG Orally Active 1 tablet Once a day with food or milk Vistaril [facility] 66507519349 25 MG Orally Active 1 capsule every 8 hrs as needed Trospium Chloride [facility] 94930973566 20 MG Orally May Inactive 1 tablet Once a day 16, at bedtime 2018 on an empty stomach Dexilant [facility] 63729135882 60 MG Orally Inactive 1 capsule Once a day Hemocyte Plus [facility] 76524518704 106-1 MG Active 1 capsule Orally Once a day Celebrex [facility] 27900463072 200 MG Orally Active 1 capsule Once a day with food Iron [facility] 20018249673 325 (65 Fe) MG Active 1 tablet Orally Once a day Trazodone HCl [facility] 58291091471 100 MG Orally Active 1 tablet Once a day at bedtime Restasis [facility] 28554564530 0.05 % Active 1 drop Ophthalmic into Twice a day affected eye Tresiba FlexTouch [facility] 33871657766 200 UNIT/ML Active not Subcutaneous defined Savella [facility] 91978784335 50 MG Orally Active 2 tablets Twice a day Abilify [facility] 64587983194 20 MG Orally Active 1 tablet Once a day Bydureon [facility] 27074547589 2 MG Active not Subcutaneous defined Tolterodine [facility] 50921275616 4 MG Orally Active 1 capsule Tartrate ER Once a day Pilocarpine HCl [facility] 77597037073 7.5 MG Orally Active 1 tablet Three times a day Cyclobenzaprine [facility] 42502583091 10 MG Orally Active 1 tablet HCl Three times a as needed day Folic Acid [facility] 68196889792 1 MG Orally Active 1 tablet Once a day Results No Known Results Summary Purpose eClinicalWorks Submission
--- OUTSIDE RECORDS SUMMARY | 2018-03-09 20:53 | XMS REPORT ---
:1960 Author Organization [employer] Care Team Providers Name Role Phone TravisLuciano [...] Medications Results No Known Results Summary Purpose [facility] Submission
--- OUTSIDE RECORDS SUMMARY | 2018-03-09 20:53 | XMS REPORT ---
[...] Status Dosage System Date Date Hydrocodone-Acetam ND 04442762588 5-325 MG Orally Nov 10, Active 1 tablet inophen every 12 hrs 2018 as needed Celebrex ND 41921890929 200 MG Orally Active 1 capsule Once a day with food Zestoretic ND 48434853189 20-12.5 MG Active 1 tablet Orally Once a day Pilocarpine HCl ND 98917914838 7.5 MG Orally Active 1 tablet Three times a day Hemocyte Plus ND 59849029803 106-1 MG Orally Active 1 capsule Once a day Toujeo SoloStar ND 40357433671 300u/ml Active not subcutaneously defined once daily Vistaril [facility] 60615455704 25 MG Orally Active 1 capsule every 8 hrs as needed Cyclobenzaprine [facility] 00751751582 10 MG Orally Active 1 tablet HCl Three times a as needed day Restasis [facility] 90100581312 0.05 % Active 1 drop Ophthalmic Twice into a day affected eye Leflunomide [facility] 74462708423 20 MG Orally Active 1 tablet Once a day Bydureon [facility] 52305505085 2 MG Active not Subcutaneous defined Omeprazole [facility] 19244460436 40 MG Orally Active 1 capsule Once a day Simvastatin ND 55841992212 40 MG Orally Active 1 tablet Once a day in the evening Tolterodine [facility] 24008975696 4 MG Orally Once Active 1 capsule Tartrate ER a day Savella [facility] 65371395614 50 MG Orally Active 2 tablets Twice a day Abilify [facility] 95197126390 20 MG Orally Active 1 tablet Once a day Iron [facility] 27858083996 325 (65 Fe) MG Active 1 tablet Orally Once a day Humalog [facility] 27822802156 100 UNIT/ML Active as Subcutaneous directed Plaquenil [facility] 16455708099 200 MG Orally Active 1 tablet Once a day with food or milk Folic Acid [facility] 20497049120 1 MG Orally Once Active 1 tablet a day Trazodone HCl [facility] 81757516411 100 MG Orally Active 1 tablet Once a day at bedtime Results No Known Results Summary Purpose eClinicalWorks Submission
[2018-03-09] MEDS ORDERED: KETOROLAC 30 MG/ML INJ ONE (22:37)
--- NOTE | 2018-03-09 22:52 | ER ---
Nurse's Notes [facility] Name: Bob Armstrong Age: 57 yrs Sex: Female : 1960 Arrival Date: 03/09/2018 Time: 20:52 Bed 16 Private MD: Luciano Travis Diagnosis: Viral syndrome Presentation: 03/09 21:05 Presenting complaint: Patient states: fever, bodyaches, cough X1 day. pt on simponi ak1 infusions for arthritis. Transition of care: patient was not received from another setting of care. Onset of symptoms was March 08, 2018. Risk Assessment: Do you want to hurt yourself or someone else? Patient reports no desire to harm self or others. Care prior to arrival: None. 21:05 Method Of Arrival: Ambulatory ak1 21:05 Acuity: JERRY 3 ak1 21:22 Initial Sepsis Screen: Does the patient meet any 2 criteria? No. Patient's initial cc3 sepsis screen is negative. Does the patient have a suspected source of infection? No. Patient's initial sepsis screen is negative. Triage Assessment: 21:22 General: Appears in no apparent distress. uncomfortable, Behavior is calm, cooperative, cc3 appropriate for age. Historical: - Allergies: 21:08 Methylprednisolone; ak1 21:08 Lyrica; ak1 21:08 zpack; ak1 - Home Meds: 21:08 Abilify 20 mg Oral tab 1 tab once daily [Active]; aspirin 81 mg Oral TbEC 1 tab once ak1 daily [Active]; Belsomra 20 mg Oral tab daily [Active]; bromfenac 0.09 % ophthalmic drop 1 drop once daily [Active]; bydureon injection daily [Active]; Celebrex 200 mg Oral cap 1 cap 2 times per day [Active]; Methotrexate Sodium Oral [Active]; lisinopril-hydrochlorothiazide 20-12.5 mg Oral tab 2 tab once daily [Active]; hydroxychloroquine 200 mg Oral tab twice a day [Active]; Folic Acid Oral [Active]; Ellura Oral [Active]; Nuvigil 250 mg Oral tab 1 tab once daily [Active]; niravam 1 tab BID prn [Active]; Plavix 75 mg Oral tab 1 tab once daily [Active]; restasis .05% eye emulsion 1 drop both eyes BID [Active]; Savella 50 mg Oral tab daily [Active]; simponi infusion once every 2 months [Active]; simvastatin 40 mg Oral tab 1 tab once daily [Active]; tresiba 120 units injection daily [Active]; Vesicare 10 mg Oral tab 1 tab once daily [Active]; pilocarpine HCl 7.5 mg TID [Active]; Dexilant 60 mg Oral CpDB 1 cap once daily [Active]; Deplin (algal oil) Oral [Active]; cyclobenzaprine 10 mg Oral tab 1 tab 3 times per day [Active]; - PMHx: 21:08 Depression; Diabetes - NIDDM; Hyperlipidemia; Hypertension; osteoarthritis; Rheumatoid ak1 Arthritis; insomnia; - PSHx: 21:08 stem cell therapy on ankle; tendon in left leg; Uretheral; rt arm; Tonsillectomy; Tubal ak1 ligation; - Immunization history:: Adult Immunizations unknown. - Social history:: Smoking status: Patient/guardian denies using tobacco. - Ebola Screening: : No symptoms or risks identified at this time. Screenin:22 Abuse screen: Denies threats or abuse. Denies injuries from another. Nutritional cc3 screening: No deficits noted. Tuberculosis screening: No symptoms or risk factors identified. Fall Risk Ambulatory Aid- None/Bed Rest/Nurse Assist (0 pts). Gait- Normal/Bed Rest/Wheelchair (0 pts) Mental Status- Oriented to own ability (0 pts). Assessment: 21:22 General: Appears in no apparent distress. uncomfortable, Behavior is calm, cooperative, cc3 appropriate for age. Pain: Complains of pain in generalized acute body pain. Neuro: Level of Consciousness is awake, alert, obeys commands, Oriented to person, place, time, situation, Appropriate for age. Cardiovascular: Denies chest pain. Respiratory: Reports cough that is productive. GI: Abdomen is round obese. : No signs and/or symptoms were reported regarding the genitourinary system. EENT: No signs and/or symptoms were reported regarding the EENT system. Derm: No signs and/or symptoms reported regarding the dermatologic system. Musculoskeletal: Circulation, motion, and sensation intact. Range of motion:. 22:12 Reassessment: Patient appears in no apparent distress at this time. Patient and/or cc3 family updated on plan of care and expected duration. Pain level reassessed. Patient is alert, oriented x 3, equal unlabored respirations, skin warm/dry/pink. 23:00 Reassessment: Patient appears in no apparent distress at this time. Patient and/or cc3 family updated on plan of care and expected duration. Pain level reassessed. Patient is alert, oriented x 3, equal unlabored respirations, skin warm/dry/pink. Dr. Trejo discharged the patient home with prescription given. No IV cannula in situ. Patient left ER vitally stable and ambulatory. Vital Signs: 21:08 BP 155 / 82; Pulse 84; Resp 20; Temp 100.0(O); Pulse Ox 95% on R/A; Weight 129.27 kg ak1 (R); Height 5 ft. 11 in. (180.34 cm) (R); Pain 7/10; 22:20 BP 114 / 63; Pulse 72; Resp 20 S; Pulse Ox 98% on R/A; cc3 23:00 BP 121 / 72; Pulse 78; Resp 20 S; Temp 100.3(O); Pulse Ox 98% on R/A; cc3 21:08 Body Mass Index 39.75 (129.27 kg, 180.34 cm) ak1 ED Course: 20:52 Patient arrived in ED. am2 20:52 Luciano Travis DO is Private Physician. am2 21:06 Triage completed. ak1 21:08 Arm band placed on Patient placed in an exam room, on a stretcher, Patient notified of ak1 wait time. 21:12 Antonio Trejo MD is Attending Physician. tw4 21:22 Gillian Sage is Primary Nurse. cc3 21:22 Patient has correct armband on for positive identification. Bed in low position. Call cc3 light in reach. Side rails up X 1. Pulse ox on. NIBP on. 21:48 Chest Single View XRAY In Process Unspecified. EDMS 22:50 Luciano Travis DO is Referral Physician. tw4 23:00 No provider procedures requiring assistance completed. Patient did not have IV access cc3 during this emergency room visit. Administered Medications: 22:24 CANCELLED (Duplicate Order): TORadol 60 mg IM once cc3 22:30 Drug: TORadol 60 mg Route: IM; Site: left gluteus; cc3 22:59 Follow up: Response: No adverse reaction cc3 Outcome: 22:52 Discharge ordered by . tw4 23:00 Discharged to home ambulatory. cc3 23:00 Condition: stable 23:00 Discharge instructions given to patient, Instructed on discharge instructions, follow up and referral plans. medication usage, Demonstrated understanding of instructions, follow-up care, medications, Prescriptions given X 2. 23:05 Patient left the ED. cc3 Signatures: Dispatcher [employer] Julianna Morris RN RN ak1 Ct Quigley Terrence, MD MD tw4 Gillian Sage cc3 Corrections: (The following items were deleted from the chart) 21:09 21:05 Acuity: JERRY 4 ak1 ak1
--- NOTE | 2018-03-09 22:52 | EDPHYS ---
Physician Documentation [facility] Name: Bob Armstrong Age: 57 yrs Sex: Female : 1960 Arrival Date: 03/09/2018 Time: 20:52 Bed 16 Private MD: Thaddeus [facility] ED Physician Antonio Trejo HPI: 03/09 22:49 This 57 yrs old Female presents to ER via Ambulatory with complaints of tw4 Doesn't Feel Right, Cough. 22:49 The patient or guardian reports cough. Onset: The symptoms/episode began/occurred tw4 today. Severity of symptoms: At their worst the symptoms were mild, in the emergency department the symptoms are unchanged. Modifying factors: The symptoms are alleviated by nothing, the symptoms are aggravated by nothing. Associated signs and symptoms: The patient has no apparent associated signs or symptoms. The patient has not experienced similar symptoms in the past. Historical: - Allergies: 21:08 Methylprednisolone; ak1 21:08 Lyrica; ak1 21:08 zpack; ak1 - Home Meds: 21:08 Abilify 20 mg Oral tab 1 tab once daily [Active]; aspirin 81 mg Oral TbEC 1 tab once ak1 daily [Active]; Belsomra 20 mg Oral tab daily [Active]; bromfenac 0.09 % ophthalmic drop 1 drop once daily [Active]; bydureon injection daily [Active]; Celebrex 200 mg Oral cap 1 cap 2 times per day [Active]; Methotrexate Sodium Oral [Active]; lisinopril-hydrochlorothiazide 20-12.5 mg Oral tab 2 tab once daily [Active]; hydroxychloroquine 200 mg Oral tab twice a day [Active]; Folic Acid Oral [Active]; Ellura Oral [Active]; Nuvigil 250 mg Oral tab 1 tab once daily [Active]; niravam 1 tab BID prn [Active]; Plavix 75 mg Oral tab 1 tab once daily [Active]; restasis .05% eye emulsion 1 drop both eyes BID [Active]; Savella 50 mg Oral tab daily [Active]; simponi infusion once every 2 months [Active]; simvastatin 40 mg Oral tab 1 tab once daily [Active]; tresiba 120 units injection daily [Active]; Vesicare 10 mg Oral tab 1 tab once daily [Active]; pilocarpine HCl 7.5 mg TID [Active]; Dexilant 60 mg Oral CpDB 1 cap once daily [Active]; Deplin (algal oil) Oral [Active]; cyclobenzaprine 10 mg Oral tab 1 tab 3 times per day [Active]; - PMHx: 21:08 Depression; Diabetes - NIDDM; Hyperlipidemia; Hypertension; osteoarthritis; Rheumatoid ak1 Arthritis; insomnia; - PSHx: 21:08 stem cell therapy on ankle; tendon in left leg; Uretheral; rt arm; Tonsillectomy; Tubal ak1 ligation; - Immunization history:: Adult Immunizations unknown. - Social history:: Smoking status: Patient/guardian denies using tobacco. - Ebola Screening: : No symptoms or risks identified at this time. ROS: 22:49 Eyes: Negative for injury, pain, redness, and discharge. tw4 22:49 Neck: Negative for injury, pain, and swelling, Cardiovascular: Negative for chest pain, palpitations, and edema, Respiratory: Negative for shortness of breath, cough, wheezing, and pleuritic chest pain, Abdomen/GI: Negative for abdominal pain, nausea, vomiting, diarrhea, and constipation, Back: Negative for injury and pain, MS/Extremity: Negative for injury and deformity, Skin: Negative for injury, rash, and discoloration. 22:49 Constitutional: Positive for body aches, chills, fatigue. Exam: 22:49 Constitutional: This is a well developed, well nourished patient who is awake, alert, tw4 and in no acute distress. Head/Face: Normocephalic, atraumatic. Chest/axilla: Normal chest wall appearance and motion. Nontender with no deformity. No lesions are appreciated. Cardiovascular: Regular rate and rhythm with a normal S1 and S2. No gallops, murmurs, or rubs. Normal PMI, no JVD. No pulse deficits. Respiratory: Lungs have equal breath sounds bilaterally, clear to auscultation and percussion. No rales, rhonchi or wheezes noted. No increased work of breathing, no retractions or nasal flaring. Abdomen/GI: Soft, non-tender, with normal bowel sounds. No distension or tympany. No guarding or rebound. No evidence of tenderness throughout. Back: No spinal tenderness. No costovertebral tenderness. Full range of motion. MS/ Extremity: Pulses equal, no cyanosis. Neurovascular intact. Full, normal range of motion. Neuro: Awake and alert, GCS 15, oriented to person, place, time, and situation. Cranial nerves II-XII grossly intact. Motor strength 5/5 in all extremities. Sensory grossly intact. Cerebellar exam normal. Normal gait. Vital Signs: 21:08 BP 155 / 82; Pulse 84; Resp 20; Temp 100.0(O); Pulse Ox 95% on R/A; Weight 129.27 kg ak1 (R); Height 5 ft. 11 in. (180.34 cm) (R); Pain 7/10; 22:20 BP 114 / 63; Pulse 72; Resp 20 S; Pulse Ox 98% on R/A; cc3 23:00 BP 121 / 72; Pulse 78; Resp 20 S; Temp 100.3(O); Pulse Ox 98% on R/A; cc3 21:08 Body Mass Index 39.75 (129.27 kg, 180.34 cm) ak1 MDM: 21:12 Patient medically screened. tw4 22:49 Differential Diagnosis: Obstructed Airway Bronchitis Influenza Upper Respiratory tw4 Infection Pharyngitis. Data reviewed: vital signs, nurses notes. Counseling: I had a detailed discussion with the patient and/or guardian regarding: the historical points, exam findings, and any diagnostic results supporting the discharge/admit diagnosis, radiology results. Special discussion: I discussed with the patient/guardian in detail that at this point there is no indication for admission to the hospital. It is understood, however, that if the symptoms persist or worsen the patient needs to return immediately for re-evaluation. 03/09 21:12 Order name: Flu tw4 03/09 21:12 Order name: Chest Single View XRAY tw4 Administered Medications: 22:24 CANCELLED (Duplicate Order): TORadol 60 mg IM once cc3 22:30 Drug: TORadol 60 mg Route: IM; Site: left gluteus; cc3 22:59 Follow up: Response: No adverse reaction cc3 Disposition: 03/10 05:23 Chart complete. tw4 Disposition: 03/09/18 22:52 Discharged to Home. Impression: Viral syndrome. - Condition is Stable. - Discharge Instructions: Viral Respiratory Infection. - Prescriptions for Ibuprofen 600 mg Oral Tablet - take 1 tablet by ORAL route every 6 hours As needed take with food; 30 tablet. Tessalon Perles 100 mg Oral Capsule - take 1 capsule by ORAL route every 8 hours As needed; 15 capsule. - Medication Reconciliation Form, Thank You Letter, Antibiotic Education, Prescription Opioid Use form. - Follow up: Luciano Travis DO; When: Upon discharge from the Emergency Department; Reason: If symptoms return, Recheck today's complaints, Continuance of care. - Problem is new. - Symptoms have improved. Signatures: Dispatcher [employer] EDMS Julianna Horne RN RN ak1 Antonio Trejo MD MD tw4 Gillain Sage cc3 Corrections: (The following items were deleted from the chart) 03/09 22:24 22:24 TORadol 60 mg IM once ordered. cc3 cc3 23:05 22:52 03/09/2018 22:52 Discharged to Home. Impression: Viral syndrome. Condition is cc3 Stable. Forms are Medication Reconciliation Form, Thank You Letter, Antibiotic Education, Prescription Opioid Use. Follow up: Luciano Travis; When: Upon discharge from the Emergency Department; Reason: If symptoms return, Recheck today's complaints, Continuance of care. Problem is new. Symptoms have improved. tw4
[2018-03-10 03:56] VITALS: TEMP 100
[2018-03-10 03:57] VITALS: BP 114/63; O2SAT 98
--- NOTE | 2018-03-10 08:07 | RAD REPORT ---
EXAM DESCRIPTION: RAD - Chest Single View - 03/09/2018 10:03 pm CLINICAL HISTORY: COUGH Chest pain. COMPARISON: Chest Single View dated 01/25/2018; Chest Pa And Lat (2 Views) dated 12/09/2015; CHEST P A AND LAT 2 VIEW dated 02/17/2013; CHEST SINGLE VIEW dated 12/06/2007 FINDINGS: Portable technique limits examination quality. The lungs are grossly clear. The heart is normal in size. No displaced fractures. IMPRESSION: No acute intrathoracic process suspected.
== END 2018-03-09 23:05 | disposition home or self-care (01) ==
LOC: ER 20:50
DX: B34.9 Viral infection, unspecified (principal); I10 Essential (primary) hypertension; E78.5 Hyperlipidemia, unspecified; E11.9 Type 2 diabetes mellitus without complications; F32.9 Major depressive disorder, single episode, unspecified; Z79.01 Long term (current) use of anticoagulants; Z79.82 Long term (current) use of aspirin; Z88.1 Allergy status to other antibiotic agents; Z88.8 Allergy status to other drugs, medicaments and biological substances
CPT/HCPCS: 71045; 87804; 96372; 99284

== ENCOUNTER 2018-03-13 23:09 | Emergency (ER) | payer SELFPAY ==
--- OUTSIDE RECORDS SUMMARY | 2018-03-13 23:11 | XMS REPORT | Clinical Summary ---
:1960 Author Organization [facility] Address [address] [place] [address] Care Team Providers Name Role Phone Asked, [...] Not on file Results Not on fileafter 03/12/2017 Insurance Payer Benefit Plan / Group Subscriber ID Type Phone Address [facility] CHOICE O/FEDERAL xxxxxxxxxxxx PPO EMPL PPO CVCP CVCP [facility] xxxxxxxxxxxx PPO [address] [facility], [address] [place] [address] Advance Directives Patient has advance care planning documents on file. For more information, please contact:[place] [address]
--- OUTSIDE RECORDS SUMMARY | 2018-03-13 23:12 | XMS REPORT ---
:1960 Author Organization [employer] Care Team Providers Name Role Phone TravisLuciano [...] Medications Results No Known Results Summary Purpose [facility] Submission
--- OUTSIDE RECORDS SUMMARY | 2018-03-13 23:12 | XMS REPORT ---
[...] Status Dosage System Date Date Leflunomide ND 44794968341 20 MG Orally Active 1 tablet Once a day Zestoretic [facility] 04867338808 20-12.5 MG Active 1 tablet Orally Once a day Omeprazole ND 96676425259 40 MG Orally June 25, Active 1 capsule Once a day 2017 Simvastatin ND 55838520737 40 MG Orally Active 1 tablet Once a day in the evening Plaquenil ND 77604856845 200 MG Orally Active 1 tablet Once a day with food or milk Vistaril [facility] 20797460816 25 MG Orally Active 1 capsule every 8 hrs as needed Trospium Chloride [facility] 57090465671 20 MG Orally May Inactive 1 tablet Once a day 16, at bedtime 2018 on an empty stomach Dexilant [facility] 16963660208 60 MG Orally Inactive 1 capsule Once a day Hemocyte Plus [facility] 05017196258 106-1 MG Active 1 capsule Orally Once a day Celebrex [facility] 72795129906 200 MG Orally Active 1 capsule Once a day with food Iron [facility] 26284337418 325 (65 Fe) MG Active 1 tablet Orally Once a day Trazodone HCl [facility] 64658112932 100 MG Orally Active 1 tablet Once a day at bedtime Restasis [facility] 70235292642 0.05 % Active 1 drop Ophthalmic into Twice a day affected eye Tresiba FlexTouch [facility] 61004189527 200 UNIT/ML Active not Subcutaneous defined Savella [facility] 73038454724 50 MG Orally Active 2 tablets Twice a day Abilify [facility] 87566048279 20 MG Orally Active 1 tablet Once a day Bydureon [facility] 80313755085 2 MG Active not Subcutaneous defined Tolterodine [facility] 12391356743 4 MG Orally Active 1 capsule Tartrate ER Once a day Pilocarpine HCl [facility] 97579186250 7.5 MG Orally Active 1 tablet Three times a day Cyclobenzaprine [facility] 14284499434 10 MG Orally Active 1 tablet HCl Three times a as needed day Folic Acid [facility] 05310303432 1 MG Orally Active 1 tablet Once a day Results No Known Results Summary Purpose [employer]ClinicalWorks Submission
--- OUTSIDE RECORDS SUMMARY | 2018-03-13 23:12 | XMS REPORT ---
[...] Status Dosage System Date Date Hydrocodone-Acetam ND 30664390092 5-325 MG Orally Nov 10, Active 1 tablet inophen every 12 hrs 2018 as needed Celebrex ND 09025727728 200 MG Orally Active 1 capsule Once a day with food Zestoretic ND 04869277149 20-12.5 MG Active 1 tablet Orally Once a day Pilocarpine HCl ND 07117537118 7.5 MG Orally Active 1 tablet Three times a day Hemocyte Plus ND 83549259536 106-1 MG Orally Active 1 capsule Once a day Toujeo SoloStar ND 10667942982 300u/ml Active not subcutaneously defined once daily Vistaril [facility] 26198014736 25 MG Orally Active 1 capsule every 8 hrs as needed Cyclobenzaprine [facility] 85387100666 10 MG Orally Active 1 tablet HCl Three times a as needed day Restasis [facility] 31435449279 0.05 % Active 1 drop Ophthalmic Twice into a day affected eye Leflunomide [facility] 47785384947 20 MG Orally Active 1 tablet Once a day Bydureon [facility] 94108486816 2 MG Active not Subcutaneous defined Omeprazole [facility] 20237284646 40 MG Orally Active 1 capsule Once a day Simvastatin ND 77940498316 40 MG Orally Active 1 tablet Once a day in the evening Tolterodine [facility] 61646134059 4 MG Orally Once Active 1 capsule Tartrate ER a day Savella [facility] 49657380385 50 MG Orally Active 2 tablets Twice a day Abilify [facility] 00044815455 20 MG Orally Active 1 tablet Once a day Iron [facility] 65584453228 325 (65 Fe) MG Active 1 tablet Orally Once a day Humalog [facility] 25186353767 100 UNIT/ML Active as Subcutaneous directed Plaquenil [facility] 23356635478 200 MG Orally Active 1 tablet Once a day with food or milk Folic Acid [facility] 48307417244 1 MG Orally Once Active 1 tablet a day Trazodone HCl [facility] 54441527401 100 MG Orally Active 1 tablet Once a day at bedtime Results No Known Results Summary Purpose [employer]ClinicalWorks Submission
--- OUTSIDE RECORDS SUMMARY | 2018-03-13 23:12 | XMS REPORT ---
[...] End Status Dosage System Date Date Celebrex [facility] 09821771993 200 MG Orally Active 1 capsule Once a day with food Cyclobenzaprine [facility] 12177130823 10 MG Orally Active 1 tablet HCl Three times a as needed day Hemocyte Plus [facility] 53480128614 106-1 MG Orally Active 1 capsule Once a day Leflunomide [facility] 63927184300 20 MG Orally Active 1 tablet Once a day Omeprazole [facility] 09465359939 40 MG Orally Active 1 capsule Once a day Savella [facility] 65327345065 50 MG Orally Active 2 tablets Twice a day Simvastatin ND 74963090501 40 MG Orally Active 1 tablet Once a day in the evening Pilocarpine HCl [facility] 57953360517 7.5 MG Orally Active 1 tablet Three times a day Zestoretic [facility] 01615660362 20-12.5 MG Active 1 tablet Orally Once a day Iron [facility] 89539091928 325 (65 Fe) MG Active 1 tablet Orally Once a day Humalog [facility] 08725179506 100 UNIT/ML Active as Subcutaneous directed Abilify [facility] 68228897304 20 MG Orally Active 1 tablet Once a day Restasis [facility] 56262908054 0.05 % Active 1 drop Ophthalmic Twice into a day affected eye Bydureon [facility] 06114351695 2 MG Active not Subcutaneous defined Plaquenil [facility] 73516573283 200 MG Orally Active 1 tablet Once a day with food or milk Folic Acid [facility] 75890691740 1 MG Orally Once Active 1 tablet a day Tresiba FlexTouch [facility] 30377203933 200 UNIT/ML Inactive not Subcutaneous defined Toujeo SoloStar [facility] 89668966999 300u/ml Active not subcutaneously defined once daily Vistaril [facility] 46965234916 25 MG Orally Active 1 capsule every 8 hrs as needed Trazodone HCl [facility] 91084940217 100 MG Orally Active 1 tablet Once a day at bedtime Tolterodine [facility] 71989899399 4 MG Orally Once Active 1 capsule Tartrate ER a day Results No Known Results Summary Purpose eClinicalWorks Submission
[2018-03-13] MEDS ORDERED: predniSONE 20 MG TAB ONE (23:35)
[2018-03-13] MEDS ORDERED: ALBUTEROL 2.5 MG/3 ML NEB SOL ONE (23:35)
[2018-03-13] MEDS ORDERED: IPRATROPIUM BROM 0.5MG/2.5ML ONE (23:35)
[2018-03-13] MEDS ORDERED: HYDROCODONE/CHLORPHEN 5 ML/OSYR ONE (23:46)
[2018-03-14] MEDS ORDERED: ACETAMINOPHEN 325 MG TABLET ONE (00:25)
[2018-03-14] MEDS ORDERED: ALBUTEROL 2.5 MG/3 ML NEB SOL ONE ×2 (00:48→02:02)
[2018-03-14 01:04] LABS: Basophils % 0.3 % (0-1.3); Eosinophils % 0.5 % (0-4.4); Hematocrit 32.8 % (36.0-45.0); Lymphocytes % 38.1 % (15.3-44.8); MPV 8.5 fL (7.6-11.3); Monocytes % 7.4 % (3.3-12.3); RBC Red Blood Cell Count 3.93 M/uL (3.86-4.86)
[2018-03-14 01:05] LABS: Absolute Lymphocytes (CBC) 1.3 K/uL (0.7-4.9); Absolute Monocytes 0.2 K/uL (0.1-1.3); Absolute Neutrophil 1.8 K/uL (1.8-8.0)
[2018-03-14 01:22] LABS: Bilirubin Direct 0.2 mg/dL (0-0.2); Bilirubin Total 0.5 mg/dL (0.2-1.0); Magnesium 1.8 mg/dL (1.8-2.4); Protein, Total 6.9 g/dL (6.4-8.2)
--- NOTE | 2018-03-14 01:36 | EDPHYS ---
Physician Documentation [facility] Name: Bob Armstrong Age: 57 yrs Sex: Female : 1960 Arrival Date: 03/13/2018 Time: 23:12 Bed 25 Private MD: Thaddeus [facility] ED Physician Braulio Tellez HPI: 03/14 00:00 This 57 yrs old Female presents to ER via Ambulatory with complaints of Chest pm1 Congestion, Cough. 00:00 The patient or guardian reports cough. Onset: The symptoms/episode began/occurred 5 pm1 day(s) ago. Severity of symptoms: in the emergency department the symptoms are actually worse. Modifying factors: The symptoms are alleviated by nothing, the symptoms are aggravated by nothing. Associated signs and symptoms: Pertinent negatives: chest pain, fever, rhinorrhea, sore throat. The patient has been recently seen at the [facility] Emergency Department, this week, for similar complaints X-rays were performed, flu swab and discharged to home with Tessalon Perles and NSAID. Historical: - Allergies: 03/13 23:59 Lyrica; tl3 23:59 Methylprednisolone; tl3 23:59 zpack; tl3 23:59 PREGABALIN; tl3 - Home Meds: 23:59 Abilify 20 mg Oral tab 1 tab once daily [Active]; aspirin 81 mg Oral TbEC 1 tab once tl3 daily [Active]; Belsomra 20 mg Oral tab daily [Active]; bromfenac 0.09 % ophthalmic drop 1 drop once daily [Active]; bydureon injection daily [Active]; Celebrex 200 mg Oral cap 1 cap 2 times per day [Active]; cyclobenzaprine 10 mg Oral tab 1 tab 3 times per day [Active]; Deplin (algal oil) Oral [Active]; Dexilant 60 mg Oral CpDB 1 cap once daily [Active]; Ellura Oral [Active]; Folic Acid Oral [Active]; hydroxychloroquine 200 mg Oral tab twice a day [Active]; lisinopril-hydrochlorothiazide 20-12.5 mg Oral tab 2 tab once daily [Active]; Methotrexate Sodium Oral [Active]; niravam 1 tab BID prn [Active]; Nuvigil 250 mg Oral tab 1 tab once daily [Active]; pilocarpine HCl 7.5 mg TID [Active]; Plavix 75 mg Oral tab 1 tab once daily [Active]; restasis .05% eye emulsion 1 drop both eyes BID [Active]; Savella 50 mg Oral tab daily [Active]; simponi infusion once every 2 months [Active]; simvastatin 40 mg Oral tab 1 tab once daily [Active]; tresiba 120 units injection daily [Active]; Vesicare 10 mg Oral tab 1 tab once daily [Active]; - PMHx: 23:59 Depression; Diabetes - NIDDM; Hyperlipidemia; Hypertension; insomnia; osteoarthritis; tl3 Rheumatoid Arthritis; - PSHx: 23:59 stem cell therapy on ankle; tendon in left leg; Uretheral; rt arm; Tonsillectomy; Tubal tl3 ligation; - Immunization history:: Adult Immunizations up to date. - Social history:: Smoking status: Patient/guardian denies using tobacco. - Ebola Screening: : No symptoms or risks identified at this time. ROS: 03/14 00:00 Constitutional: Negative for fever, chills, and weight loss, Eyes: Negative for injury, pm1 pain, redness, and discharge, ENT: Negative for injury, pain, and discharge, Neck: Negative for injury, pain, and swelling, Cardiovascular: Negative for chest pain, palpitations, and edema. Abdomen/GI: Negative for abdominal pain, nausea, vomiting, diarrhea, and constipation, Back: Negative for injury and pain, : Negative for injury, bleeding, discharge, and swelling, MS/Extremity: Negative for injury and deformity, Skin: Negative for injury, rash, and discoloration, Neuro: Negative for headache, weakness, numbness, tingling, and seizure. Respiratory: Positive for cough, "sounds productive", shortness of breath, Negative for wheezing. Exam: 00:00 Constitutional: This is a well developed, well nourished patient who is awake, alert, pm1 and in no acute distress. Head/Face: Normocephalic, atraumatic. Eyes: Pupils equal round and reactive to light, extra-ocular motions intact. Lids and lashes normal. Conjunctiva and sclera are non-icteric and not injected. Cornea within normal limits. Periorbital areas with no swelling, redness, or edema. ENT: Nares patent. No nasal discharge, no septal abnormalities noted. Tympanic membranes are normal and external auditory canals are clear. Oropharynx with no redness, swelling, or masses, exudates, or evidence of obstruction, uvula midline. Mucous membranes moist. Neck: Trachea midline, no thyromegaly or masses palpated, and no cervical lymphadenopathy. Supple, full range of motion without nuchal rigidity, or vertebral point tenderness. No Meningismus. Chest/axilla: Normal chest wall appearance and motion. Nontender with no deformity. No lesions are appreciated. Cardiovascular: Regular rate and rhythm with a normal S1 and S2. No gallops, murmurs, or rubs. Normal PMI, no JVD. No pulse deficits. 00:00 Abdomen/GI: Soft, non-tender, with normal bowel sounds. No distension or tympany. No guarding or rebound. No evidence of tenderness throughout. Back: No spinal tenderness. No costovertebral tenderness. Full range of motion. Skin: Warm, dry with normal turgor. Normal color with no rashes, no lesions, and no evidence of cellulitis. MS/ Extremity: Pulses equal, no cyanosis. Neurovascular intact. Full, normal range of motion. 00:00 Respiratory: the patient does not display signs of respiratory distress, Respirations: normal, Breath sounds: bronchial sounds, are heard diffusely. 00:00 Neuro: Orientation: is normal, Motor: is normal, moves all fours, Gait: is steady, at a normal pace, without difficulty. Vital Signs: 03/13 23:59 BP 155 / 67; Pulse 84; Resp 20; Temp 99.5; Pulse Ox 94% on R/A; tl3 03/14 00:56 BP 137 / 56; Pulse 96; Resp 20; Pulse Ox 90% on R/A; mg2 01:55 Pulse Ox 88% on R/A; mg2 01:59 BP 127 / 59; Pulse 81; Resp 20; Pulse Ox 96% on Nebulizer Mask; Pain 0/10; mg2 02:29 BP 122 / 59; Pulse 83; Resp 20; Pulse Ox 95% on R/A; Pain 0/10; mg2 MDM: 03/13 23:22 Patient medically screened. [facility] 03/14 01:30 ED course: Patient takes immunosuppressants. Will discharge the patient home with pm1 antibiotics, breathing treatment, cough suppressant, and steroid. 01:34 Data reviewed: vital signs. Counseling: I had a detailed discussion with the patient pm1 and/or guardian regarding: the historical points, exam findings, and any diagnostic results supporting the discharge/admit diagnosis, lab results, radiology results, the need for outpatient follow up, to return to the emergency department if symptoms worsen or persist or if there are any questions or concerns that arise at home. 02:31 ED course: Oxygen saturation within normal limits once monitor applied to the skin. pm1 Patient had press on nails to fingers. Patient and family comfortable with discharge with normal vital signs. 03/14 00:38 Order name: NT PRO-BNP; Complete Time: 01:29 pm1 03/14 00:38 Order name: Basic Metabolic Panel; Complete Time: :29 pm1 03/13 23:25 Order name: Chest Single View XRAY pm1 03/14 00:38 Order name: CBC with Diff; Complete Time: 01:18 pm1 03/14 00:38 Order name: LFT's; Complete Time: : pm1 03/14 00:38 Order name: Magnesium; Complete Time: : pm1 03/14 00:38 Order name: IV Saline Lock; Complete Time: 00:45 pm1 03/14 00:38 Order name: Labs collected and sent; Complete Time: 00:45 pm1 03/14 00:38 Order name: O2 Per Protocol; Complete Time: 00:45 pm1 03/14 00:38 Order name: O2 Sat Monitoring; Complete Time: 00:45 pm1 Administered Medications: 03/13 23:37 Drug: Albuterol - atroVENT (3:1) (2.5 mg - 0.5 mg) 3 ml Route: Nebulizer; mg2 03/14 00:46 Follow up: Response: No adverse reaction; Marked relief of symptoms mg2 03/13 23:37 Drug: predniSONE 60 mg Route: PO; mg2 03/14 00:46 Follow up: Response: No adverse reaction; Marked relief of symptoms mg2 03/13 23:37 Drug: Tussionex Pennkinetic ER 5 ml Route: PO; mg2 03/14 00:45 Follow up: Response: No adverse reaction; Marked relief of symptoms mg2 00:16 Drug: Tylenol 650 mg Route: PO; mg2 00:58 Follow up: Response: No adverse reaction tl3 00:47 Drug: Albuterol 2.5 mg Route: Inhalation; mg2 00:58 Follow up: Response: No adverse reaction tl3 02:01 Drug: Albuterol 2.5 mg Route: Inhalation; mg2 02:28 Follow up: Response: No adverse reaction; Marked relief of symptoms mg2 Disposition: 03/14/18 01:35 Discharged to Home. Impression: Bronchitis, not specified as acute or chronic. - Condition is Stable. - Discharge Instructions: Acute Bronchitis, Adult, How to Use an Inhaler. - Prescriptions for Prednisone 20 mg Oral Tablet - take 2 tablet by ORAL route once daily for 5 days; 10 tablet. Albuterol Sulfate 90 mcg/actuation - inhale 1-2 puff by INHALATION route every 4-6 hours; 1 Inhaler. Guaifenesin AC 10- 100 mg/5 mL Oral Liquid - take 10 milliliter by ORAL route every 4 hours As needed; 240 milliliter. Levaquin 500 mg Oral Tablet - take 1 tablet by ORAL route once daily for 7 days; 7 tablet. - Medication Reconciliation Form, Thank You Letter, Antibiotic Education, Prescription Opioid Use form. - Follow up: Emergency Department; When: As needed; Reason: Worsening of condition. Follow up: Private Physician; When: 2 - 3 days; Reason: Recheck today's complaints, Continuance of care, Re-evaluation by your physician. - Problem is new. - Symptoms have improved. Addendum: 03/16/2018 07:26 Co-signature as Attending Physician, Braulio Tellez MD I agree with the assessment and c bolton plan of care. Signatures: Dispatcher [employer] [facility] Braulio Tellez MD MD cha Marinas, Patrick, DIRECTOR OF CORPORATE REAL ESTATE DIRECTOR OF CORPORATE REAL ESTATE pm1 Leslie Cuellar RN RN tl3 Erik Reed RN RN mg2 Corrections: (The following items were deleted from the chart) 03/14 02:33 01:35 03/14/2018 01:35 Discharged to Home. Impression: Bronchitis, not specified as mg2 acute or chronic. Condition is Stable. Forms are Medication Reconciliation Form, Thank You Letter, Antibiotic Education, Prescription Opioid Use. Follow up: Emergency Department; When: As needed; Reason: Worsening of condition. Follow up: Private Physician; When: 2 - 3 days; Reason: Recheck today's complaints, Continuance of care, Re-evaluation by your physician. Problem is new. Symptoms have improved. pm1
--- NOTE | 2018-03-14 01:36 | ER ---
Nurse's Notes [facility] Name: Bob Armstrong Age: 57 yrs Sex: Female : 1960 Arrival Date: 03/13/2018 Time: 23:12 Bed 25 Private MD: Luciano Travis Diagnosis: Bronchitis, not specified as acute or chronic Presentation: 03/13 23:30 Presenting complaint: Patient states: was seen here and sent home diagnosed with a tl3 viral illness, breathing is getting more and more uncomfortable. coughing has increased and is keeping her up. Transition of care: patient was not received from another setting of care. Onset of symptoms was February 2018. Risk Assessment: Do you want to hurt yourself or someone else? Patient reports no desire to harm self or others. Initial Sepsis Screen: Does the patient meet any 2 criteria? No. Patient's initial sepsis screen is negative. Does the patient have a suspected source of infection? No. Patient's initial sepsis screen is negative. Care prior to arrival: None. 23:30 Method Of Arrival: Ambulatory tl3 23:30 Acuity: JERRY 3 tl3 Triage Assessment: 03/14 02:33 General: Appears in no apparent distress. comfortable, Behavior is calm, cooperative. mg2 02:33 Pain: Denies pain. mg2 Historical: - Allergies: 03/13 23:59 Lyrica; tl3 23:59 Methylprednisolone; tl3 23:59 zpack; tl3 23:59 PREGABALIN; tl3 - Home Meds: 23:59 Abilify 20 mg Oral tab 1 tab once daily [Active]; aspirin 81 mg Oral TbEC 1 tab once tl3 daily [Active]; Belsomra 20 mg Oral tab daily [Active]; bromfenac 0.09 % ophthalmic drop 1 drop once daily [Active]; bydureon injection daily [Active]; Celebrex 200 mg Oral cap 1 cap 2 times per day [Active]; cyclobenzaprine 10 mg Oral tab 1 tab 3 times per day [Active]; Deplin (algal oil) Oral [Active]; Dexilant 60 mg Oral CpDB 1 cap once daily [Active]; Ellura Oral [Active]; Folic Acid Oral [Active]; hydroxychloroquine 200 mg Oral tab twice a day [Active]; lisinopril-hydrochlorothiazide 20-12.5 mg Oral tab 2 tab once daily [Active]; Methotrexate Sodium Oral [Active]; niravam 1 tab BID prn [Active]; Nuvigil 250 mg Oral tab 1 tab once daily [Active]; pilocarpine HCl 7.5 mg TID [Active]; Plavix 75 mg Oral tab 1 tab once daily [Active]; restasis .05% eye emulsion 1 drop both eyes BID [Active]; Savella 50 mg Oral tab daily [Active]; simponi infusion once every 2 months [Active]; simvastatin 40 mg Oral tab 1 tab once daily [Active]; tresiba 120 units injection daily [Active]; Vesicare 10 mg Oral tab 1 tab once daily [Active]; - PMHx: 23:59 Depression; Diabetes - NIDDM; Hyperlipidemia; Hypertension; insomnia; osteoarthritis; tl3 Rheumatoid Arthritis; - PSHx: 23:59 stem cell therapy on ankle; tendon in left leg; Uretheral; rt arm; Tonsillectomy; Tubal tl3 ligation; - Immunization history:: Adult Immunizations up to date. - Social history:: Smoking status: Patient/guardian denies using tobacco. - Ebola Screening: : No symptoms or risks identified at this time. Screenin/02 00:01 Abuse screen: Denies threats or abuse. Nutritional screening: No deficits noted. tl3 Tuberculosis screening: No symptoms or risk factors identified. Fall Risk None identified. Assessment: 00:01 Reassessment: No changes from previously documented assessment. tl3 00:55 Reassessment: Patient and/or family updated on plan of care and expected duration. Pain tl3 level reassessed. Patient is alert, oriented x 3, equal unlabored respirations, skin warm/dry/pink. pt has ambulated to restroom twice, O2 saturations dropped down to 88% another neb treatment given sats increased to 100% during treatment, now on room air at 91%. 01:58 Reassessment: patient is for discharge after after stabilizing the O2 saturation. mg2 02:29 Reassessment: she has nail finnish on her fingers the whole time with sat probe on it. mg2 her actual saturation is 95% with the sat probe place on her forehead. Vital Signs: 03/13 23:59 BP 155 / 67; Pulse 84; Resp 20; Temp 99.5; Pulse Ox 94% on R/A; tl3 02 00:56 BP 137 / 56; Pulse 96; Resp 20; Pulse Ox 90% on R/A; mg2 01:55 Pulse Ox 88% on R/A; mg2 01:59 BP 127 / 59; Pulse 81; Resp 20; Pulse Ox 96% on Nebulizer Mask; Pain 0/10; mg2 02:29 BP 122 / 59; Pulse 83; Resp 20; Pulse Ox 95% on R/A; Pain 0/10; mg2 ED Course: 03/13 23:12 Patient arrived in ED. am2 23:12 Luciano Travis DO is Private Physician. am2 23:19 Leslie Cuellar RN is Primary Nurse. tl3 23:19 Ki Bailey NP is PHCP. pm1 23:19 Braulio Tellez MD is Attending Physician. pm1 23:54 Triage completed. tl3 23:59 Arm band placed on left wrist. tl3 03/14 00:01 Patient has correct armband on for positive identification. Bed in low position. Call tl3 light in reach. Side rails up X 1. 00:01 No provider procedures requiring assistance completed. tl3 00:38 Chest Single View XRAY In Process Unspecified. EDMS 01:00 Inserted saline lock: 20 gauge in left antecubital area, using aseptic technique. Blood mg2 collected. by DANTE Nelson. 02:32 IV discontinued, intact, bleeding controlled, No redness/swelling at site. Pressure mg2 dressing applied. Administered Medications: 03/13 23:37 Drug: Albuterol - atroVENT (3:1) (2.5 mg - 0.5 mg) 3 ml Route: Nebulizer; mg2 03/14 00:46 Follow up: Response: No adverse reaction; Marked relief of symptoms mg2 03/13 23:37 Drug: predniSONE 60 mg Route: PO; mg2 03/14 00:46 Follow up: Response: No adverse reaction; Marked relief of symptoms mg2 03/13 23:37 Drug: Tussionex Pennkinetic ER 5 ml Route: PO; mg2 03/14 00:45 Follow up: Response: No adverse reaction; Marked relief of symptoms mg2 00:16 Drug: Tylenol 650 mg Route: PO; mg2 00:58 Follow up: Response: No adverse reaction tl3 00:47 Drug: Albuterol 2.5 mg Route: Inhalation; mg2 00:58 Follow up: Response: No adverse reaction tl3 02:01 Drug: Albuterol 2.5 mg Route: Inhalation; mg2 02:28 Follow up: Response: No adverse reaction; Marked relief of symptoms mg2 Outcome: 01:35 Discharge ordered by . pm1 02:32 Discharged to home ambulatory, with friend. mg2 02:32 Condition: stable 02:32 Discharge instructions given to patient, friend, Instructed on discharge instructions, follow up and referral plans. medication usage, Demonstrated understanding of instructions, follow-up care, medications, Prescriptions given X 4. 02:33 Patient left the ED. mg2 Signatures: Dispatcher [employer] EDMS Ki Bailey NP GARMENT SUPERVISOR pm[address] [place] am2 Leslie Cuellar RN RN tl3 Erik Reed RN RN mg2 Corrections: (The following items were deleted from the chart) 02:00 01:55 Pulse Ox 85% RA; mg2 mg2 02:32 00:01 Patient did not have IV access during this emergency room visit. tl3 mg2 02:32 01:00 Inserted saline lock: by DANTE Nelson mg2 mg2
[2018-03-14 02:45] VITALS: TEMP 99.5
[2018-03-14 02:55] VITALS: BP 122/59; O2SAT 95
--- NOTE | 2018-03-14 07:48 | RAD REPORT ---
EXAM DESCRIPTION: RAD - Chest Single View - 03/14/2018 12:36 am CLINICAL HISTORY: Cough, shortness of breath COMPARISON: March 09, 2018, January 2018, December 2015 TECHNIQUE: AP portable chest image was obtained 0012 hours . FINDINGS: No peripheral mass or consolidation. Heart size and vasculature are both slightly increase d from the comparison. Right hilar fullness is present new from the prior study. This is probably par t of vascular engorgement in shallow inspiration FX. Mass or lymphadenopathy would not develop over a 4 day interval. Trachea is midline. No measurable pleural effusion and no pneumothorax. No acute bon y abnormality seen. No acute aortic findings suspected. IMPRESSION: Heart, vasculature and lung markings have all slightly increased from March 09. Findin gs suggest a developing failure or volume overload. No peripheral mass or consolidation.
== END 2018-03-14 02:33 | disposition home or self-care (01) ==
LOC: ER 23:09
DX: J40 Bronchitis, not specified as acute or chronic (principal); I10 Essential (primary) hypertension; E11.9 Type 2 diabetes mellitus without complications; E78.5 Hyperlipidemia, unspecified; F32.9 Major depressive disorder, single episode, unspecified; Z79.01 Long term (current) use of anticoagulants; Z79.82 Long term (current) use of aspirin; Z88.1 Allergy status to other antibiotic agents; Z88.8 Allergy status to other drugs, medicaments and biological substances
CPT/HCPCS: 36415; 71045; 80048; 80076; 83735; 83880; 85025; 94640; 99284; J7512

== ENCOUNTER 2018-03-22 16:19 | Emergency (ER) | payer SELFPAY ==
--- OUTSIDE RECORDS SUMMARY | 2018-03-22 16:22 | XMS REPORT ---
[...] End Status Dosage System Date Date Celebrex [facility] 29749017350 200 MG Orally Active 1 capsule Once a day with food Cyclobenzaprine [facility] 20580864415 10 MG Orally Active 1 tablet HCl Three times a as needed day Hemocyte Plus [facility] 99850280686 106-1 MG Orally Active 1 capsule Once a day Leflunomide [facility] 27175467183 20 MG Orally Active 1 tablet Once a day Omeprazole [facility] 24697935628 40 MG Orally Active 1 capsule Once a day Savella [facility] 57591883681 50 MG Orally Active 2 tablets Twice a day Simvastatin ND 79081541414 40 MG Orally Active 1 tablet Once a day in the evening Pilocarpine HCl [facility] 95796880704 7.5 MG Orally Active 1 tablet Three times a day Zestoretic [facility] 41508711835 20-12.5 MG Active 1 tablet Orally Once a day Iron [facility] 85718845667 325 (65 Fe) MG Active 1 tablet Orally Once a day Humalog [facility] 60123203133 100 UNIT/ML Active as Subcutaneous directed Abilify [facility] 19560651027 20 MG Orally Active 1 tablet Once a day Restasis [facility] 17373969420 0.05 % Active 1 drop Ophthalmic Twice into a day affected eye Bydureon [facility] 46851843625 2 MG Active not Subcutaneous defined Plaquenil [facility] 96605300977 200 MG Orally Active 1 tablet Once a day with food or milk Folic Acid [facility] 01568717930 1 MG Orally Once Active 1 tablet a day Tresiba FlexTouch [facility] 84141319344 200 UNIT/ML Inactive not Subcutaneous defined Toujeo SoloStar [facility] 87364131418 300u/ml Active not subcutaneously defined once daily Vistaril [facility] 83835051975 25 MG Orally Active 1 capsule every 8 hrs as needed Trazodone HCl [facility] 65821583089 100 MG Orally Active 1 tablet Once a day at bedtime Tolterodine [facility] 43359935711 4 MG Orally Once Active 1 capsule Tartrate ER a day Results No Known Results Summary Purpose eClinicalWorks Submission
--- OUTSIDE RECORDS SUMMARY | 2018-03-22 16:22 | XMS REPORT | Clinical Summary ---
:1960 Author Organization [facility] [employer] Address [address] [place] [address] Care Team Providers Name Role Phone Asked, [...] Not on file Results Not on fileafter 03/21/2017 Insurance Payer Benefit Plan / Group Subscriber ID Type Phone Address [facility] CHOICE O/FEDERAL xxxxxxxxxxxx PPO EMPL PPO CVCP [facility] xxxxxxxxxxxx PPO [id number] [facility], [address] [place] [address] Advance Directives Patient has advance care planning documents on file. For more information, please contact:[place] [address]
--- OUTSIDE RECORDS SUMMARY | 2018-03-22 16:22 | XMS REPORT ---
[...] Status Dosage System Date Date Leflunomide ND 22857889733 20 MG Orally Active 1 tablet Once a day Zestoretic [facility] 69879933573 20-12.5 MG Active 1 tablet Orally Once a day Omeprazole ND 62674281956 40 MG Orally June 25, Active 1 capsule Once a day 2017 Simvastatin ND 83596092348 40 MG Orally Active 1 tablet Once a day in the evening Plaquenil ND 01683215859 200 MG Orally Active 1 tablet Once a day with food or milk Vistaril [facility] 79015607868 25 MG Orally Active 1 capsule every 8 hrs as needed Trospium Chloride [facility] 36241465950 20 MG Orally May Inactive 1 tablet Once a day 16, at bedtime 2018 on an empty stomach Dexilant [facility] 69657135780 60 MG Orally Inactive 1 capsule Once a day Hemocyte Plus [facility] 05025132369 106-1 MG Active 1 capsule Orally Once a day Celebrex [facility] 85297419367 200 MG Orally Active 1 capsule Once a day with food Iron [facility] 13316988209 325 (65 Fe) MG Active 1 tablet Orally Once a day Trazodone HCl [facility] 60977426110 100 MG Orally Active 1 tablet Once a day at bedtime Restasis [facility] 17839923830 0.05 % Active 1 drop Ophthalmic into Twice a day affected eye Tresiba FlexTouch [facility] 12227919479 200 UNIT/ML Active not Subcutaneous defined Savella [facility] 87780273969 50 MG Orally Active 2 tablets Twice a day Abilify [facility] 81104988459 20 MG Orally Active 1 tablet Once a day Bydureon [facility] 52709970468 2 MG Active not Subcutaneous defined Tolterodine [facility] 82079925301 4 MG Orally Active 1 capsule Tartrate ER Once a day Pilocarpine HCl [facility] 28154462178 7.5 MG Orally Active 1 tablet Three times a day Cyclobenzaprine [facility] 14456214615 10 MG Orally Active 1 tablet HCl Three times a as needed day Folic Acid [facility] 83929886028 1 MG Orally Active 1 tablet Once a day Results No Known Results Summary Purpose eClinicalWorks Submission
--- OUTSIDE RECORDS SUMMARY | 2018-03-22 16:22 | XMS REPORT ---
:1960 Author Organization [employer] Care Team Providers Name Role Phone TravisLuciano [...] Medications Results No Known Results Summary Purpose [employer] Submission
--- OUTSIDE RECORDS SUMMARY | 2018-03-22 16:23 | XMS REPORT ---
[...] Status Dosage System Date Date Hydrocodone-Acetam ND 14602310102 5-325 MG Orally Nov 10, Active 1 tablet inophen every 12 hrs 2018 as needed Celebrex ND 61458906549 200 MG Orally Active 1 capsule Once a day with food Zestoretic ND 13089429313 20-12.5 MG Active 1 tablet Orally Once a day Pilocarpine HCl ND 67724203271 7.5 MG Orally Active 1 tablet Three times a day Hemocyte Plus ND 77454262354 106-1 MG Orally Active 1 capsule Once a day Toujeo SoloStar ND 00142056017 300u/ml Active not subcutaneously defined once daily Vistaril [facility] 20845720687 25 MG Orally Active 1 capsule every 8 hrs as needed Cyclobenzaprine [facility] 11105478799 10 MG Orally Active 1 tablet HCl Three times a as needed day Restasis [facility] 25199857277 0.05 % Active 1 drop Ophthalmic Twice into a day affected eye Leflunomide [facility] 59822898061 20 MG Orally Active 1 tablet Once a day Bydureon [facility] 73194784244 2 MG Active not Subcutaneous defined Omeprazole [facility] 92727694485 40 MG Orally Active 1 capsule Once a day Simvastatin ND 49690740838 40 MG Orally Active 1 tablet Once a day in the evening Tolterodine [facility] 80251656981 4 MG Orally Once Active 1 capsule Tartrate ER a day Savella [facility] 93373010443 50 MG Orally Active 2 tablets Twice a day Abilify [facility] 88825900161 20 MG Orally Active 1 tablet Once a day Iron [facility] 46147508531 325 (65 Fe) MG Active 1 tablet Orally Once a day Humalog [facility] 39244340102 100 UNIT/ML Active as Subcutaneous directed Plaquenil [facility] 81938101122 200 MG Orally Active 1 tablet Once a day with food or milk Folic Acid [facility] 43040184060 1 MG Orally Once Active 1 tablet a day Trazodone HCl [facility] 15539497272 100 MG Orally Active 1 tablet Once a day at bedtime Results No Known Results Summary Purpose eClinicalWorks Submission
[2018-03-22] MEDS ORDERED: IPRATROPIUM BROM 0.5MG/2.5ML ONE (18:05)
[2018-03-22] MEDS ORDERED: ALBUTEROL 2.5 MG/3 ML NEB SOL ONE (18:05)
[2018-03-22 18:22] LABS: Absolute Lymphocytes (CBC) 2.4 K/uL (0.7-4.9); Absolute Monocytes 0.4 K/uL (0.1-1.3); Absolute Neutrophil 2.9 K/uL (1.8-8.0); Basophils % 0.3 % (0-1.3); Eosinophils % 0.9 % (0-4.4); Hematocrit 33.5 % (36.0-45.0); Lymphocytes % 40.8 % (15.3-44.8); MPV 7.7 fL (7.6-11.3); Monocytes % 7.4 % (3.3-12.3); RBC Red Blood Cell Count 4.04 M/uL (3.86-4.86)
[2018-03-22 18:43] LABS: BUN Blood Urea Nitrogen 13 mg/dL (7-18); Bicarbonate 30 mmol/L (21-32); Glucose Level 220 mg/dL (74-106); NT PRO-BNP 121 pg/mL (<125); Potassium 3.9 mmol/L (3.5-5.1); Sodium Level 142 mmol/L (136-145); Troponin (Emerg Dept Use Only) < 0.02 ng/mL (0.0-0.045)
--- NOTE | 2018-03-22 19:07 | RAD REPORT ---
EXAM DESCRIPTION: RAD - Chest Single View - 03/22/2018 5:50 pm CLINICAL HISTORY: Cough and congestion COMPARISON: March 14, 2018 TECHNIQUE: AP portable chest image was obtained 1748 hours . FINDINGS: Exam is technically limited by portable technique and large body habitus. Heart size is up per normal. Vascular engorgement is present. No focal consolidation. Lateral lung bases are poorly vi sualized. No pneumothorax. No acute bony abnormality seen. No acute aortic findings suspected. IMPRESSION: Portable chest is significantly limited. A focal pneumonia is not identified. Mild failure or volume overload is certainly possible. Chest is not substantially different from comp arison.
--- NOTE | 2018-03-22 19:42 | RAD REPORT ---
EXAM DESCRIPTION: US - Extrem Venous W Compress Yoav - 03/22/2018 7:05 pm CLINICAL HISTORY: Leg pain and swelling COMPARISON: None. TECHNIQUE: Real-time sonographic evaluation of the bilateral lower extremity common femoral, superfi cial femoral, popliteal and posterior tibial veins was performed. FINDINGS: Normal compressibility, flow augmentation, phasic flow and spontaneous flow are identified in the left and right lower extremity common femoral, superficial femoral, popliteal and posterior t ibial veins. No intraluminal filling defects seen. IMPRESSION: No DVT in either lower extremity.
[2018-03-22 19:45] LABS: Urine Blood TRACE (NEG); Urine Glucose NEGATIVE (NEG); Urine Protein NEGATIVE (NEG)
--- NOTE | 2018-03-22 20:18 | RAD REPORT ---
EXAM DESCRIPTION: CT - Chest For Pe Angio - 03/22/2018 8:09 pm CLINICAL HISTORY: Dyspnea COMPARISON: None. TECHNIQUE: Dynamically enhanced 3 mm thick images of the chest were obtained during administration o f approximately 150mL Isovue 370 IV contrast. Coronal and oblique MIP reconstruction images were gene rated and reviewed. Exam utilizes a protocol to evaluate the pulmonary arterial tree. All CT scans are performed using dose optimization technique as appropriate and may include automated exposure control or mA/KV adjustment according to patient size. FINDINGS: No pulmonary emboli are identified. The aorta as imaged shows no acute or suspicious finding. No pericardial thickening or effusion. No focal mass or consolidation. Minimal bilateral pleural effusions are present. Interstitial marking s are prominent and there is some scattered subpleural alveolar opacification. No mediastinal or hilar suspicious masses. No chest wall masses or abnormal axillary lymphadenopathy. IMPRESSION: No pulmonary emboli identified. Minimal pleural effusions and prominent interstitial markings from edema or infiltrate. Scattered patchy subpleural alveolar opacification from infiltrate, edema or atelectasis.
--- NOTE | 2018-03-22 20:48 | ER ---
Nurse's Notes [facility] Name: Bob Armstrong Age: 57 yrs Sex: Female : 1960 Arrival Date: 03/22/2018 Time: 16:22 Bed 30 Private MD: Luciano Travis Diagnosis: Dyspnea, unspecified Presentation: 03/22 16:39 Presenting complaint: Headache, productive cough with beige mucus, and SOB x 1 week. hb Recently seen in ED for bronchitis, completed antibiotics. Transition of care: patient was not received from another setting of care. Onset of symptoms is unknown. Risk Assessment: Do you want to hurt yourself or someone else? Patient reports no desire to harm self or others. Care prior to arrival: None. 16:39 Method Of Arrival: Ambulatory hb 16:39 Acuity: JERRY 3 hb 18:42 Initial Sepsis Screen: Does the patient meet any 2 criteria? No. Patient's initial rv sepsis screen is negative. Does the patient have a suspected source of infection? No. Patient's initial sepsis screen is negative. Triage Assessment: 18:43 General: Appears in no apparent distress. uncomfortable. Respiratory: Reports shortness rv of breath at rest Onset: The symptoms/episode began/occurred gradually, the patient has mild shortness of breath. Historical: - Allergies: 16:41 Lyrica; hb 16:41 Methylprednisolone; hb 16:41 pregabalin; hb 16:41 zpack; hb - PMHx: 18:47 Depression; Diabetes - NIDDM; Hyperlipidemia; Hypertension; insomnia; osteoarthritis; rv Rheumatoid Arthritis; - Immunization history:: Adult Immunizations up to date. - Social history:: Smoking status: Patient/guardian denies using tobacco. - Ebola Screening: : No symptoms or risks identified at this time. Screenin:42 Abuse screen: Denies threats or abuse. Denies injuries from another. Nutritional rv screening: No deficits noted. Tuberculosis screening: No symptoms or risk factors identified. Fall Risk None identified. Assessment: 18:41 General: Appears in no apparent distress. comfortable, Behavior is calm, cooperative. rv Pain: Denies pain. Neuro: Level of Consciousness is awake, alert, obeys commands, Oriented to person, place, time, situation. Cardiovascular: Rhythm is regular. Respiratory: Airway is patent Respiratory effort is even, Breath sounds are clear bilaterally. GI: No signs and/or symptoms were reported involving the gastrointestinal system. : No signs and/or symptoms were reported regarding the genitourinary system. EENT: No signs and/or symptoms were reported regarding the EENT system. Derm: Skin is intact. Musculoskeletal: No signs and/or symptoms reported regarding the musculoskeletal system. 19:28 Reassessment: Patient appears in no apparent distress at this time. Patient and/or rv family updated on plan of care and expected duration. Pain level reassessed. Patient is alert, oriented x 3, equal unlabored respirations, skin warm/dry/pink. Vital Signs: 16:40 BP 160 / 89; Pulse 75; Resp 20; Temp 97.8; Pulse Ox 97% on R/A; Pain 7/10; hb 18:46 BP 148 / 62; Pulse 81; Resp 17 S; Pulse Ox 98% on R/A; rv 19:00 BP 142 / 72; Pulse 84; Resp 18 S; Pulse Ox 97% on R/A; rv 20:32 BP 164 / 102; Pulse 99; Resp 17 S; Pulse Ox 97% on R/A; rv ED Course: 16:22 Patient arrived in ED. sb2 16:22 Luciano Travis DO is Private Physician. sb2 16:40 Triage completed. hb 16:40 Arm band placed on. hb 17:25 Bev Flores [facility]C [facility]. kb 17:25 Osmar Magallon MD is Attending Physician. kb 17:45 Inserted saline lock: 20 gauge in left antecubital area, using aseptic technique. Blood rv collected. Missed attempt(s): 22 gauge in right antecubital area. 17:51 Chest Single View XRAY In Process Unspecified. EDMS 19:05 US Extremity Venous W Compression Yoav In Process Unspecified. EDMS 19:28 Patient has correct armband on for positive identification. Placed in gown. Bed in low rv position. Call light in reach. Side rails up X 1. pulverizer operator on. Pulse ox on. NIBP on. 20:09 CT Chest For PE Angio In Process Unspecified. EDMS 20:47 Luciano Travis DO is Referral Physician. kb 21:00 No provider procedures requiring assistance completed. IV discontinued, bleeding rv controlled, No redness/swelling at site. Pressure dressing applied. Administered Medications: 17:45 Drug: DuoNeb (3:1) (2.5 mg - 0.5 mg) 3 ml Route: Nebulizer; rv 19:28 Follow up: Response: Marked relief of symptoms rv 20:46 CANCELLED (Other Intervention Used): Lasix 20 mg IVP once kb 21:00 Drug: LaSIX 20 mg Route: PO; rv 21:00 Follow up: Response: Medication administered at discharge. rv Outcome: 20:47 Discharge ordered by . kb 21:01 Discharged to home ambulatory. rv 21:01 Condition: good 21:01 Discharge instructions given to patient, Instructed on discharge instructions, follow up and referral plans. medication usage, Demonstrated understanding of instructions, follow-up care, medications, Prescriptions given X 1. 21:01 Patient left the ED. rv Signatures: Dispatcher [employer] EDMS Bev Flores, CLASSROOM ASSISTANT-C CLASSROOM ASSISTANT-Abena Sanchez RN RN Gloria Beckwith sb2 Shankar Paz RN RN rv
--- NOTE | 2018-03-22 20:48 | EDPHYS ---
Physician Documentation [facility] Name: Bob Armstrong Age: 57 yrs Sex: Female : 1960 Arrival Date: 03/22/2018 Time: 16:22 Bed 30 Private MD: Lisa Travish ED Physician Osmar Magallon HPI: 03/22 20:43 This 57 yrs old Female presents to ER via Ambulatory with complaints of kb Shortness Of Breath - BRONCHITIS. 20:43 The patient has shortness of breath at rest. Onset: The symptoms/episode began/occurred kb 2 week(s) ago. Duration: The symptoms are continuous. The patient's shortness of breath is aggravated by exertion, supine position, is alleviated by nebulizer treatment. Associated signs and symptoms: Pertinent positives: non-productive cough, Pertinent negatives: chest pain, productive cough, diaphoresis, dizziness, fever, hemoptysis, loss of consciousness, nausea, numbness in extremities, visual changes, vomiting. Severity of symptoms: At their worst the symptoms were mild in the emergency department the symptoms are unchanged. The patient has not experienced similar symptoms in the past. The patient has been recently seen by a physician: the patient's primary care provider, 4 day(s) ago, The patient has been recently seen at the [facility] Emergency Department, last week, for similar complaints. Pt reports shortness of breath for 2 weeks. States she was seen her twice and by her PCP on . Was given levaquin and prednisone on her last visit and completed those. States her PCP just gave her more cough medication. Historical: - Allergies: 16:41 Lyrica; hb 16:41 Methylprednisolone; hb 16:41 pregabalin; hb 16:41 zpack; hb - PMHx: 18:47 Depression; Diabetes - NIDDM; Hyperlipidemia; Hypertension; insomnia; osteoarthritis; rv Rheumatoid Arthritis; - Immunization history:: Adult Immunizations up to date. - Social history:: Smoking status: Patient/guardian denies using tobacco. - Ebola Screening: : No symptoms or risks identified at this time. ROS: 18:05 Constitutional: Negative for fever, chills, and weight loss, ENT: Negative for injury, kb pain, and discharge, Neck: Negative for injury, pain, and swelling, Cardiovascular: Negative for chest pain, palpitations, and edema, Abdomen/GI: Negative for abdominal pain, nausea, vomiting, diarrhea, and constipation, Back: Negative for injury and pain, : Negative for injury, bleeding, discharge, and swelling, MS/Extremity: Negative for injury and deformity, Skin: Negative for injury, rash, and discoloration, Neuro: Negative for headache, weakness, numbness, tingling, and seizure. 18:05 Respiratory: Positive for dyspnea on exertion, orthopnea, shortness of breath, Negative for cough, hemoptysis, pleurisy, sputum production, wheezing. Exam: 18:05 Constitutional: This is a well developed, well nourished patient who is awake, alert, kb and in no acute distress. Head/Face: Normocephalic, atraumatic. Chest/axilla: Normal chest wall appearance and motion. Nontender with no deformity. No lesions are appreciated. Cardiovascular: Regular rate and rhythm with a normal S1 and S2. No gallops, murmurs, or rubs. Normal PMI, no JVD. No pulse deficits. Respiratory: Lungs have equal breath sounds bilaterally, clear to auscultation and percussion. No rales, rhonchi or wheezes noted. No increased work of breathing, no retractions or nasal flaring. Abdomen/GI: Soft, non-tender, with normal bowel sounds. No distension or tympany. No guarding or rebound. No evidence of tenderness throughout. Back: No spinal tenderness. No costovertebral tenderness. Full range of motion. Skin: Warm, dry with normal turgor. Normal color with no rashes, no lesions, and no evidence of cellulitis. MS/ Extremity: Pulses equal, no cyanosis. Neurovascular intact. Full, normal range of motion. Neuro: Awake and alert, GCS 15, oriented to person, place, time, and situation. Cranial nerves II-XII grossly intact. Motor strength 5/5 in all extremities. Sensory grossly intact. Cerebellar exam normal. Normal gait. 18:05 Cardiovascular: Edema: pedal edema. Vital Signs: 16:40 BP 160 / 89; Pulse 75; Resp 20; Temp 97.8; Pulse Ox 97% on R/A; Pain 7/10; hb 18:46 BP 148 / 62; Pulse 81; Resp 17 S; Pulse Ox 98% on R/A; rv 19:00 BP 142 / 72; Pulse 84; Resp 18 S; Pulse Ox 97% on R/A; rv 20:32 BP 164 / 102; Pulse 99; Resp 17 S; Pulse Ox 97% on R/A; rv MDM: 17:25 Patient medically screened. kb 18:05 Data reviewed: vital signs, nurses notes. Data interpreted: Pulse oximetry: on room air kb is 97 %. Interpretation: normal. 20:37 Counseling: I had a detailed discussion with the patient and/or guardian regarding: the kb historical points, exam findings, and any diagnostic results supporting the discharge/admit diagnosis, lab results, radiology results, the need for outpatient follow up, a family practitioner, to return to the emergency department if symptoms worsen or persist or if there are any questions or concerns that arise at home. 03/22 17:51 Order name: Basic Metabolic Panel; Complete Time: 19:14 kb 03/22 17:51 Order name: CBC with Diff; Complete Time: 18:27 kb 03/22 17:51 Order name: Magnesium; Complete Time: 19:14 kb 03/22 17:51 Order name: NT PRO-BNP; Complete Time: 19:14 kb 03/22 17:51 Order name: Troponin (emerg Dept Use Only); Complete Time: 19:14 kb 03/22 18:51 Order name: Urine Dipstick--Ancillary (enter results); Complete Time: 19:51 em1 03/22 17:26 Order name: Chest Single View XRAY; Complete Time: 19:09 kb 03/22 17:51 Order name: US Extremity Venous W Compression Yoav; Complete Time: 19:51 kb 03/22 17:51 Order name: EKG; Complete Time: 17:52 kb 03/22 17:51 Order name: Cardiac monitoring; Complete Time: 18:40 kb 03/22 19:15 Order name: CT Chest For PE Angio; Complete Time: 20:23 kb 03/22 17:51 Order name: EKG - Nurse/Tech; Complete Time: 18:41 kb 03/22 17:51 Order name: IV Saline Lock; Complete Time: 18:41 kb 03/22 17:51 Order name: Labs collected and sent; Complete Time: 18:41 kb 03/22 17:51 Order name: O2 Per Protocol; Complete Time: 18:41 kb 03/22 17:51 Order name: O2 Sat Monitoring; Complete Time: 18:41 kb Administered Medications: 17:45 Drug: DuoNeb (3:1) (2.5 mg - 0.5 mg) 3 ml Route: Nebulizer; rv 19:28 Follow up: Response: Marked relief of symptoms rv 20:46 CANCELLED (Other Intervention Used): Lasix 20 mg IVP once kb 21:00 Drug: LaSIX 20 mg Route: PO; rv 21:00 Follow up: Response: Medication administered at discharge. rv Disposition: 03/22/18 20:47 Discharged to Home. Impression: Dyspnea, unspecified. - Condition is Stable. - Discharge Instructions: Shortness of Breath, [id number]. - Prescriptions for Lasix 20 mg Oral Tablet - take 1 tablet by ORAL route once daily; 20 tablet. - Medication Reconciliation Form, Thank You Letter, Antibiotic Education, Prescription Opioid Use form. - Follow up: Emergency Department; When: As needed; Reason: Worsening of condition. Follow up: Luciano Travis DO; When: 2 - 3 days; Reason: Recheck today's complaints, Continuance of care, Re-evaluation by your physician. Addendum: 03/24/2018 07:11 Co-signature as Attending Physician, Osmar Magallon MD. r n Signatures: Dispatcher [employer] EDMS Bev Flores, SAMPLE WORKER-C SAMPLE WORKER-Ckb Osmar Magallon MD MD rn Baxter, Heather, Shankar Gonzalez RN, RN RN rv Corrections: (The following items were deleted from the chart) 03/22 20:46 20:43 Lasix 20 mg IVP once ordered. kb kb 21:01 20:47 03/22/2018 20:47 Discharged to Home. Impression: Dyspnea, unspecified. Condition rv is Stable. Forms are Medication Reconciliation Form, Thank You Letter, Antibiotic Education, Prescription Opioid Use. Follow up: Emergency Department; When: As needed; Reason: Worsening of condition. Follow up: Luciano Travis; When: 2 - 3 days; Reason: Recheck today's complaints, Continuance of care, Re-evaluation by your physician. kb
[2018-03-22] MEDS ORDERED: FUROSEMIDE 20 MG TABLET ONE (21:05)
[2018-03-22 21:27] VITALS: TEMP 97.8
[2018-03-22 21:32] VITALS: O2SAT 97
[2018-03-22 21:33] VITALS: BP 164/102
--- NOTE | 2018-03-23 07:21 | EKG ---
Test Date: 2018-03-22 Test Time: 18:33:49 [place]: MEASUREMENT RESULTS: Intervals: Rate: 77 CO: 156 QRSD: 82 QT: 408 QTc: 461 [place]: P: 58 CO: 156 QRS: 76 T: 50 INTERPRETIVE STATEMENTS: Normal sinus rhythm Nonspecific T wave abnormality Prolonged QT Abnormal ECG Compared to ECG 01/25/2018 14:10:31 T-wave abnormality now present Electronically Signed On 03-23-18 07:20:45 NAIL MACHINE OPERATOR by Andreas Corona
== END 2018-03-22 21:01 | disposition home or self-care (01) ==
LOC: ER 16:19
DX: R06.00 Dyspnea, unspecified (principal); I10 Essential (primary) hypertension; Z88.1 Allergy status to other antibiotic agents; Z88.8 Allergy status to other drugs, medicaments and biological substances
CPT/HCPCS: 36415; 71045; 71275; 80048; 81003; 83735; 83880; 84484; 85025; 93005; 93970; 94640; 99285; Q9967

== ENCOUNTER 2019-08-03 16:56 | Emergency (ER) | payer SELFPAY ==
[2019-08-03] MEDS ORDERED: NA CHLORIDE 0.9% 1,000 ML ONE (19:32)
[2019-08-03 20:50] LABS: Absolute Lymphocytes (CBC) 2.5 K/uL (0.7-4.9); Basophils % 0.8 % (0-1.3); Hematocrit 43.7 % (36.0-45.0); Lymphocytes % 26.9 % (15.3-44.8); MPV 9.6 fL (7.6-11.3); RBC Red Blood Cell Count 5.22 M/uL (3.86-4.86)
[2019-08-03 20:51] LABS: Protime INR 1.05
[2019-08-03 21:11] LABS: ALT/SGPT 44 U/L (12-78); Albumin 3.5 g/dL (3.4-5.0); Alkaline Phosphatase 111 U/L (45-117); BUN Blood Urea Nitrogen 14 mg/dL (7-18); Bicarbonate 29 mmol/L (21-32); Bilirubin Direct < 0.1 mg/dL (0-0.2); Bilirubin Total 0.3 mg/dL (0.2-1.0); Glucose Level 324 mg/dL (74-106); NT PRO-BNP 11 pg/mL (<125); Protein, Total 8.4 g/dL (6.4-8.2); Sodium Level 133 mmol/L (136-145); Troponin (Emerg Dept Use Only) < 0.02 ng/mL (0.0-0.045)
[2019-08-03 21:12] LABS: AST/SGOT 24 U/L (15-37); Magnesium 1.8 mg/dL (1.8-2.4)
--- NOTE | 2019-08-03 21:38 | RAD REPORT ---
EXAM DESCRIPTION: CT - Head Brain Wo Cont - 08/03/2019 8:57 pm CLINICAL HISTORY: Dizziness COMPARISON: 2013 TECHNIQUE: Computed axial tomography of the head was obtained. IV contrast was not requested. All CT scans are performed using dose optimization technique as appropriate and may include automated exposure control or mA/KV adjustment according to patient size. FINDINGS: An intracranial bleed is not seen . The ventricles are normal in caliber. No extra-axial fluid collection is noted. Fluid within the sinuses/ mastoids is not seen. IMPRESSION: No acute intracranial abnormality is seen. If patient's symptoms persist MRI of the bra in would be recommended.
--- OUTSIDE RECORDS SUMMARY | 2019-08-03 22:48 | XMS REPORT | Clinical Summary ---
:1960 Author Organization [facility] Address [address] [place] [address] Care Team Providers Name Role Phone Asked, No Pcp Primary Care Provider Unavailable Allergies Active Allergy Reactions Severity Noted Date Comments Lactase GI Intolerance 12/20/2015 Gabapentin Other (See Comments) 12/20/2015 Got nadine l dizzy Pregabalin Swelling 12/20/2015 Medications Medication Sig [...] Not on file Results Not on fileafter 08/02/2018 Insurance Payer Benefit Plan / Subscriber ID Effective Dates Phone Addre ss Type Group BCBS BCBS CHOICE xxxxxxxxxxxx 2013-Present PPO PPO/FEDERAL EMPL PPO CVCP CVCP BCBS xxxxxxxxxxxx 2013-Present [address] PPO [address] [place] [address] Advance Directives For more information, please contact: [phone] Type Date Recorded Patient Eeg Technician Explanati on Advance Directives, Living Will and Medical Power of Commercial Real Estate Manager
--- OUTSIDE RECORDS SUMMARY | 2019-08-03 22:50 | XMS REPORT | Continuity of Care Document ---
:1960 Author Organization [facility] t Address [address] [place] [address] Care Team Providers Name Role Phone Asked, Pcp Primary Care Physician Unavailable RUFUS Attending Clinician Unavailable [id number] Attending Clinician Unavailable LAVERN Attending Clinician Unavailable Problems Condition Condition Condition Status Onset Resolution Last Treating Co mments Source Name Details Category Date Date Treatment Clinician Date GERD GERD Problem Active [facility] without without [facility] - esophagiti esophagiti Me moria s s l [facility] Overactive Overactive Problem Active [facility] bladder bladder [facility] Insomnia Insomnia Problem Active [facility] Iron Iron Problem Active [facility] deficiency deficiency Ted kes - anemia due anemia due Me moria to chronic to chronic l blood loss blood loss Ou tpati ent Clinics Obstructiv Obstructiv Problem Active [facility] e sleep e sleep [facility] - apnea apnea [facility] Ankylosing Ankylosing Problem Active [facility] spondyliti spondyliti Ted kes - s of s of Memoria multiple multiple l sites in sites in Outnct i spine spine ent Clinics Bipolar Bipolar Problem Active [facility] disorder disorder [facility] Restless Restless Problem Active [facility] leg leg [facility] - syndrome syndrome [facility] a l [facility] Fibromyalg Fibromyalg Problem Active [facility] ia ia [facility] Diabetes Diabetes Problem Active [facility] t type 2, type 2, [facility] - controlled controlled Me moria l [facility] Benign Benign Problem Active [facility] essential essential Luke s - HTN HTN Memoria l [facility] Vitamin D Vitamin D Problem Active [facility] deficiency deficiency Ted kes - [facility] l [facility] Hyperlipid Hyperlipid Problem Active C [facility] emia, emia, [facility] - mixed mixed Memoria l Outpati ent Clinics Rheumatoid Rheumatoid Problem Active [facility] arthritis arthritis Luke s - Memoria l Outpat[facility] ent Clinics Morbid Morbid Problem Active [facility] obesity obesity [facility] Diabetic Diabetic Problem Active [facility] neuropathy neuropathy Ted kes - Memoria l Outpat[facility] ent Clinics Fatty Fatty Problem Active [facility] liver liver [facility] Circadian Circadian Problem Active [facility] rhythm rhythm [facility] - sleep sleep Memoria disorder, disorder, l shift work shift work Ou tpati type type ent Clinics Primary Primary Problem Active [facility] osteoarthr osteoarthr Ted kes - itis of itis of Memoria both knees both knees l Outpati ent Clinics Chronic Chronic Problem Active [facility] obstructiv obstructiv Ted kes - e e Memoria pulmonary pulmonary l disease, disease, Outpat i unspecifie unspecifie en t d COPD d COPD Clinics type type History of History of Problem Resolve Univers arthritis arthritis HL7.CCDAR2 d [facility] of [place] [facility] ans History of History of Problem Resolve Univers Chronic Chronic HL7.CCDAR2 d [place] obstruct[place]iv [place] pulmonary pulmonary ans disease, disease, unspecifie unspecifie d COPD d COPD type type History of History of Problem Resolve Univers depression depression HL7.CCDAR2 d [facility] [place] [facility] History of History of Problem Resolve Univers diabetes diabetes HL7.CCDAR2 d it y of mellitus mellitus [place] [facility] ans History of History of Problem Resolve Univers essential essential HL7.CCDAR2 d [place]y of hypertensi hypertensi [place] [facility] ans History of History of Problem Resolve Univers fibromyalg fibromyalg HL7.CCDAR2 d ity of ia ia [place] [facility]ici ans History of History of Problem Resolve Univers Obstructiv Obstructiv HL7.CCDAR2 d ity of e sleep e sleep [place] apnea apnea Physici syndrome syndrome ans Overactive Overactive Problem Active U nivers bladder bladder HL7.CCDAR2 [facility] [place] [facility] ans Obese Obese Problem Active Univers HL7.CCDAR2 [facility] [place] [facility] Hematuria, Hematuria, Problem Active U nivers microscopi microscopi HL7.CCDAR2 ity of c c [place] [facility] Cystitis, Cystitis, Problem Active Uni vers acute acute HL7.CCDAR2 [facility] [place] [facility] Post-opera Post-opera Problem Active U nivers tive state tive state HL7.CCDAR2 [facility] [place] [facility] ans UTI UTI Problem Active Univers (urinary (urinary HL7.CCDAR2 it y of tract tract [place] infection) infection) Ph ysici ans Postop Postop Problem Active Univers check check HL7.CCDAR2 [facility] [place] [facility] ans Enuresis Enuresis Problem Active Unive rs HL7.CCDAR2 [facility] [place] [facility] ans Nocturia Nocturia Problem Active Unive rs HL7.CCDAR2 [facility] [place] [facility] ans Chronic Chronic Problem Active Univers cystitis cystitis HL7.CCDAR2 it y of [place] [facility] Frequency Frequency Problem Active Uni vers HL7.CCDAR2 [facility] [place] [facility] Recent Recent Problem Active Univers urinary urinary HL7.CCDAR2 ity of tract tract [place] infection infection Phys ici ans Yeast Yeast Problem Active Univers vaginitis vaginitis HL7.CCDAR2 [facility] [place] [facility] ans Vaginitis Vaginitis Problem Active Uni vers HL7.CCDAR2 [facility] [place] [facility] ans Mixed urge Mixed urge Problem Active U nivers and stress and stress HL7.CCDAR2 ity of incontinen incontinen [place] ans Urinary Urinary Problem Active Univers urgency urgency HL7.CCDAR2 it[facility] [place] [facility] ans Vaginal Vaginal Problem Active Univers burning burning HL7.CCDAR2 [facility] [place] [facility] ans Vaginal Vaginal Problem Active Univers irritation irritation HL7.CCDAR2 [facility] [place] [facility] ans Vaginal Vaginal Problem Active Univers discharge discharge HL7.CCDAR2 [facility] [place] [facility] ans Bacterial Bacterial Problem Active Uni vers vaginosis vaginosis HL7.CCDAR2 it[facility] [place] [facility] ans Dysuria Dysuria Problem Active Univers HL7.CCDAR2 [facility] [place] [facility] ans Allergies, Adverse Reactions, Alerts Allergy Allergy Status Severity Reaction(s) Onset Inactive Treating Comm ents Source Name Type Date Date Clinician Lactase Propensi Active GI 2015-02 Sridhar ty to Intolerance 02-18 Metho di adverse 00:00: st reaction 00 s to drug Gabapent Propensi Active Other (See 2015-02 Got real Waller in ty to Comments) 1-09 dizzy Methodi adverse 00:00: st reaction 00 s to drug Pregabal Propensi Active Swelling 2015-02 [place] ty to 02-18 Methodi adverse 00:00: st reaction 00 s to drug Invokana Adverse Active Info Not [facility] Reaction Available [facility] Metformi Adverse Active Info Not [facility]I S t n HCl Reaction Available [facility] Lyrica Adverse Active Info Not [facility] Reaction Available [facility] Glimepir Adverse Active Info Not [facility] t timothy Reaction Available [facility] Lyrica drug Active Univers CAPS allergy [facility] [place] [facility] Family History Family Member Diagnosis Comments Start Date Stop Date Source Mother Family history of Univers ity of [place] diabetes mellitus Physici ans Mother Family history of Univers [facility] [place] lung cancer Physicians Mother Family history of [facility] [place] hypertension Physicians Father Family history of [facility] [place] stroke Physicians Brother Family history of [facility] [place] diabetes mellitus Physici ans [facility] [place] [place] Social History Social Habit Start Date Stop Date Quantity Comments Source Sex Assigned At [facility] [place] [place] Alcohol intake 2015-12-21 2015-12-21 [facility] 00:00:00 non-drinker of alcohol (finding) Smoking Status Start Date Stop Date Source Never smoker [facility] Medications Ordered Filled Start Stop Current Ordering Indication Dosage Frequency Signature Comments Components Source Medication Medication Date Date Medication? Clinician (SIG) Name Name Furosemide Furosemide Yes Luciano 0.[address] 5-01 [facility] - 00:00: Memoria 00 [facility] Hydrocodone Hydrocodone 2017-02 Yes Luciano [address] -Acetaminop -Acetaminop 0-01 Travis as needed Lukes - hen hen 00:00: Memoria 00 [facility] Tolterodine Tolterodine Yes BLACK 1 PO QD Univers Tartrate ER Tartrate ER 4-30 [place] ity of 4 MG Oral 4 MG Oral 00:00: N.P. Lionel as Capsule Capsule 00 Physici Extended Extended ans Release 24 Release 24 Hour Hour folic acid 2015-02 Yes 2mg QD Take 2 mg [place] (FOLVITE) 1 02-18 by mouth Meth gwen MG tablet 15:03: daily. st 09 METHOTREXAT 2015-02 Yes .7mL Q7D Inject 0.7 Waller E SODIUM 1-09 mL as Methodi INJ 15:03: directed st 09 once a week at 4pm. celecoxib 2015-02 Yes 200mg Q.5D Take 200 Maryana ston (CeleBREX) 1-09 mg by Methodi 200 MG 15:03: mouth 2 st capsule 09 (two) times a day. hydroxychlo 2015-02 Yes Q.5D Take by Maryana ston roquine -09 mouth 2 Methodi (PLAQUENIL) 15:03: (two) st 200 mg 09 times a tablet day. cyclobenzap 2015-02 Yes 10mg Q.[id number] Take 10 mg Waller rine 02-18 [id number] by mouth 3 Met hodi (FLEXERIL) 15:03: 3D (three) st 10 MG 09 times a tablet day. PILOCARPINE 2015-02 Yes 7.5mg Q.[id number] Take 7.5 Waller HCL ORAL 02-18 [id number] mg by Meth gwen 15:03: 3D mouth 3 st 09 (three) times a day. LISINOPRIL- 2015-02 Yes 2{tbl} QD Take 2 [place] HCTZ -09 tablets by Methodi 20-12.5 MG 15:03: mouth st COMBO DOSE 09 daily. dexlansopra 2015-02 Yes 60mg QD Take 60 mg Waller zole 02-18 by mouth Methodi (DEXILANT) 15:03: daily. st 60 mg 09 capsule exenatide 2015-02 Yes 2mg Q1W Inject 2 [place] microsphere 1-09 mg under Meth gwen s 15:03: the skin st (BYDUREON) 09 every 7 2 mg/0.65 days. mL pen injector insulin 2015-02 Yes 120U QD Inject 120 [place] degludec - Units Methodi (TRESIBA 15:03: under the st FLEXTOUCH 09 skin U-100) 100 daily. unit/mL (3 mL) insulin pen simvastatin 2015-02 Yes 40mg QD Take 40 mg Waller (ZOCOR) 40 02-18 by mouth Metho di MG tablet 15:03: nightly. st 09 aspirin 2016-1 Yes 81mg QD Take 81 mg [place] (ECOTRIN) 02-18 by mouth Method i 81 MG 15:03: daily. st enteric 09 coated tablet clopidogrel 2015-02 Yes 75mg QD Take 75 mg Sridhar (PLAVIX) 75 02-18 by mouth Meth gwen mg tablet 15:03: daily. st 09 ARIPiprazol 2015-02 Yes 20mg QD Take 20 mg Waller e (ABILIFY) 02-18 by mouth Meth gwen 10 MG 15:03: daily. st tablet 09 milnacipran 2015-02 Yes 50mg Q.5D Take 50 mg Waller (SAVELLA) 02-18 by mouth 2 Meth gwen 50 mg 15:03: (two) st tablet 09 times a day. suvorexant 2015-02 Yes QD Take by Meredith lima (BELSOMRA) 02-18 mouth Methodi 20 mg 15:03: nightly. st tablet 09 armodafinil 2015-02 Yes 250mg QD Take 250 [place] (NUVIGIL) 1-09 mg by Methodi 250 mg 15:03: mouth st tablet 09 daily. ALPRAZolam 2015-02 Yes .5mg Q.5D Take 0.5 Maryana ston (NIRAVAM) 1-09 mg by Methodi 0.5 MG 15:03: mouth 2 st disintegrat 09 (two) ing tablet times a day as needed for anxiety. cycloSPORIN 2015-02 Yes 1[drp] Q.5D Administer Waller E 02-18 1 drop to Methodi (RESTASIS) 15:03: both eyes st 0.05 % 09 2 (two) ophthalmic times a emulsion day. bromfenac 2015-02 Yes 1[drp] QD Administer Waller (XIBROM) 02-18 1 drop Methodi 0.09 % 15:03: into the st ophthalmic 09 left eye solution daily. cranberry 2015-02 Yes 1{capsu QD Take 1 Maryana ston extract 02-18 le} capsule by Method i (ELLURA) 15:03: mouth st 200 mg 09 daily. capsule capsule Celebrex Celebrex Yes Luciano [address] [facility] with food [facility] Cyclobenzap Cyclobenzap Yes Luciano [address] rine HCl rine HCl Travis as needed L ukes - Memoria l Outpati ent Clinics Zestoretic Zestoretic Yes Luciano [address] [facility] Abilify Abilify Yes Luciano [address] [facility]ics Restasis Restasis Yes Luciano [address] [facility] into Lukes - affected Memoria eye l Outpati ent Clinics Humalog Humalog Yes Luciano as [facility] directed [facility] Plaquenil Plaquenil Yes Luciano [address] [facility] Travis with food Lukes - or milk Memoria l Outpati ent Clinics Iron Iron Yes Luciano [address] [facility] Leflunomide Leflunomide Yes Luciano [address] [facility] Vistaril Vistaril Yes Luciano [address] [facility] as needed [facility]ics Bydureon Bydureon Yes Luciano not [facility] defined [facility] ProAir HFA ProAir HFA Yes Luciano [address] [facility] needed [facility]ics Pilocarpine Pilocarpine Yes Luciano [address] HCl HCl [facility] Savella Savella Yes Luciano [address] [facility]ics Guaifenesin Guaifenesin Yes Luciano [address] -Codeine -Codeine Travis needed Luke s - Memoria l Outpati ent Clinics Atorvastati Atorvastati Yes Luciano [address] n Calcium n Calcium Travis Luke s - Memoria l Outpati ent Clinics Omeprazole Omeprazole Yes Luciano [address] [facility] [facility] Breo Breo Yes Luciano [address] Ellipta Ellipta [facility] Trazodone Trazodone Yes Luciano [address] HCl HCl Travis at bedtime [facility] Toujeo Toujeo Yes Luciano not [facility] SoloStar SoloStar Travis defined [place] [facility] - Memoria l Outpati ent Clinics Tolterodine Tolterodine Yes Luciano [address] Tartrate ER Tartrate ER Travis [facility] ent Clinics Hemocyte Hemocyte Yes Luciano [address] Plus Plus [facility]ics Folic Acid Folic Acid Yes Luciano [address] [facility] [facility] Colace Colace Yes Luciano [address] [facility] as needed [facility]ics Abilify 20 Abilify 20 Yes 1 po QHS Univers MG Oral MG Oral ity of Tablet Tablet [place] Physici ans Savella 50 Savella 50 Yes 1 po QHS Univers MG Oral MG Oral ity of Tablet Tablet [place] Physici ans Plavix 75 Plavix 75 Yes Unive rs MG Oral MG Oral ity of Tablet Tablet [place] Physici ans Simvastatin Simvastatin Yes U nivers 40 MG Oral 40 MG Oral ity of Tablet Tablet [place] Physici ans SulfaSALAzi SulfaSALAzi Yes U nivers ne 500 MG ne 500 MG ity o f Oral Tablet Oral Tablet [place] Physici ans Leflunomide Leflunomide Yes U nivers 20 MG Oral 20 MG Oral ity of Tablet Tablet [place] Physici ans CeleBREX CeleBREX Yes Univers CAPS CAPS ity of [place] Physici ans Hydroxychlo Hydroxychlo Yes U nivers roquine roquine ity of Sulfate 200 Sulfate 200 [place] MG Oral MG Oral Physici Tablet Tablet ans Folic Acid Folic Acid Yes Uni vers 1 MG Oral 1 MG Oral ity o f Tablet Tablet [place] Physici ans Pilocarpine Pilocarpine Yes U nivers HCl - 7.5 HCl - 7.5 ity o f MG Oral MG Oral [place] Tablet Tablet Physici ans HydrOXYzine HydrOXYzine Yes U nivers HCl - 25 MG HCl - 25 MG i ty of Oral Tablet Oral Tablet [place] Physici ans TraZODone TraZODone Yes Unive rs HCl TABS HCl TABS ity of [place] [facility]ici ans Tresiba Tresiba Yes Univers FlexTouch FlexTouch ity o f SOPN SOPN [place] [facility]ici ans Bydureon Bydureon Yes Univers PEN PEN ity of [place] [facility]ici ans Vital Signs Vital Name Observation Time Observation Value Comments Source BP Systolic 2017-09-03 130 mm[Hg] Location: [facility] 11:02:00 Position: [place] Physician s Sitting BP Diastolic 2017-09-03 80 mm[Hg] Location: NAIN; [facility] 11::00 Position: [place] Physician s Sitting Height 2017-09-03 71 [in_us] University of 11:02:00 [place] [facility]ician s Weight 2017-09-03 298 [lb_av] University of 11:02:00 [place] [facility] s Body Mass Index 2017-09-03 41.56 kg/m2 University o f Calculated 11:02:00 [place] Physician s Temperature 2017-09-03 97.8 [degF] University of 11:02:00 [place] Physician s BP Systolic 2017-08-27 108 mm[Hg] Location: NAIN; [facility] 14:27:00 Position: [place] Physician s Sitting BP Diastolic 2017-08-27 70 mm[Hg] Location: NAIN; [facility] 14:27:00 Position: [place] Physician s Sitting Height 2017-08-27 71 [in_us] University 14:27:00 [place] Physician s Weight 2017-08-27 298 [lb_av] University 14:27:00 [place] Physician s Body Mass Index 2017-08-27 41.56 kg/m2 University o f Calculated 14:27:00 [place] Physician s Temperature 2017-08-27 97.9 [degF] University of 14:27:00 [place] Physician s BP Systolic 2017-08-21 130 mm[Hg] Location: NAIN; [facility] 10:23:00 Position: [place] Physician s Sitting BP Diastolic 2017-08-21 84 mm[Hg] Location: NAIN; [facility] 10:23:00 Position: [place] Physician s Sitting Height 2017-08-21 71 [in_us] University 10:23:00 [place] [facility]ician s Weight 2017-08-21 298 [lb_av] University 10:23:00 [place] Physician s Body Mass Index 2017-08-21 41.56 kg/m2 University o f Calculated 10:23:00 [place] Physician s BP Systolic 2017-08-14 150 mm[Hg] Location: NAIN; [facility] 10:53:00 Position: [place] Physician s Sitting BP Diastolic 2017-08-14 72 mm[Hg] Location: NAIN; [facility] 10:53:00 Position: [place] Physician s Sitting Height 2017-08-14 71 [in_us] University 10:53:00 [place] [facility]ician s Weight 2017-08-14 298 [lb_av] University of 10:53:00 [place] Physician s Body Mass Index 2017-08-14 41.56 kg/m2 University o f Calculated 10:53:00 [place] Physician s Temperature 2017-08-14 98.8 [degF] University of 10:53:00 [place] Physician s BP Systolic 2017-07-31 132 mm[Hg] Location: [facility]; [facility] 13:51:00 Position: [place] Physician s Sitting BP Diastolic 2017-07-31 68 mm[Hg] Location: [facility]; [facility] 13:51:00 Position: [place] Physician s Sitting Height 2017-07-31 71 [in_us] University 13:51:00 [place] [facility] s Weight 2017-07-31 298 [lb_av] [facility] 13:51:00 [place] [facility]ician s Body Mass Index 2017-07-31 41.56 kg/m2 University o f Calculated 13:51:00 [place] Physician s Temperature 2017-07-31 98.2 [degF] [place] of 13:51:00 [place] Physician s BP Systolic 2017-07-24 122 mm[Hg] Location: NAIN; [facility] 13:30:00 Position: [place] Physician s Sitting BP Diastolic 2017-07-24 72 mm[Hg] Location: [facility]; [facility] 13:30:00 Position: [place] Physician s Sitting Height 2017-07-24 71 [in_us] University of 13:30:00 [place] Physician s Weight 2017-07-24 298 [lb_av] University of 13:30:00 [place] [facility]ician s Body Mass Index 2017-07-24 41.56 kg/m2 University o f Calculated 13:30:00 [place] Physician s Temperature 2017-07-24 98.4 [degF] University of 13:30:00 [place] Physician s BP Systolic 2017-07-17 110 mm[Hg] Location: NAIN; [facility] 14:32:00 Position: [place] Physician s Sitting BP Diastolic 2017-07-17 80 mm[Hg] Location: NAIN; [facility] 14:32:00 Position: [place] Physician s Sitting Height 2017-07-17 71 [in_us] University 14:32:00 [place] [facility]ician s Weight 2017-07-17 298 [lb_av] University 14:32:00 [place] [facility]ician s Body Mass Index 2017-07-17 41.56 kg/m2 University o f Calculated 14:32:00 [place] Physician s BP Systolic 2017-07-03 142 mm[Hg] Location: [facility]; [facility] :36:00 Position: [place] Physician s Sitting BP Diastolic 2017-07-03 80 mm[Hg] Location: NAIN; [facility] :36:00 Position: [place] Physician s Sitting Height 2017-07-03 71 [in_us] University 09:36:00 [place] Physician s Weight 2017-07-03 298 [lb_av] University of 09:36:00 [place] Physician s Body Mass Index 2017-07-03 41.56 kg/m2 University o f Calculated 09:36:00 [place] [facility] s Temperature 2017-07-03 97.4 [degF] [place] of 09:36:00 [place] [facility]ician s BP Systolic 2017-06-19 140 mm[Hg] Location: NAIN; [facility] 15:26:00 Position: [place] Physician s Sitting BP Diastolic 2017-06-19 80 mm[Hg] Location: [facility]; [facility] 15:26:00 Position: [place] Physician s Sitting Height 2017-06-19 71 [in_us] University of 15:26:00 [place] [facility]ician s Weight 2017-06-19 298 [lb_av] University 15:26:00 [place] [facility] s Body Mass Index 2017-06-19 41.56 kg/m2 University o f Calculated 15:26:00 [place] [facility] s Temperature 2017-06-19 97.9 [degF] University of 15:26:00 [place] [facility]ician s BP Systolic 2017-06-12 118 mm[Hg] Location: NAIN; [facility] 13:28:00 Position: [place] Physician s Sitting BP Diastolic 2017-06-12 80 mm[Hg] Location: NAIN; [facility] 13:28:00 Position: [place] Physician s Sitting Height 2017-06-12 71 [in_us] University 13:28:00 [place] [facility] s Weight 2017-06-12 298 [lb_av] University of 13:28:00 [place] [facility]ician s Body Mass Index 2017-06-12 41.56 kg/m2 University o f Calculated 13:28:00 [place] [facility]ician s BP Systolic 2017-06-09 160 mm[Hg] Location: NAIN; [facility] 09:20:00 Position: [place] Physician s Sitting BP Diastolic 2017-06-09 92 mm[Hg] Location: NAIN; [facility] 09:20:00 Position: [place] Physician s Sitting Height 2017-06-09 71 [in_us] [facility] 09:20:00 [place] [facility]ician s Weight 2017-06-09 298 [lb_av] [facility] 09:20:00 [place] Physician s Body Mass Index 2017-06-09 41.56 kg/m2 University o f Calculated 09:20:00 [place] [facility]ician s Temperature 2017-06-09 98.2 [degF] [facility] 09:20:00 [place] Physician s Procedures Procedure Date / Time Performing Clinician Source Performed [QLH] CULTURE, URINE, 2017-08-27 00:00:00 [facility] Physicians [[facility]] CULTURE, URINE, 2017-08-21 00:00:00 [facility] Physicians [[facility]] CULTURE, URINE, 2017-06-09 00:00:00 [facility]OUTINE Physicians History of Ankle [facility] Surgery Physicians History of Hysteroscopy [facility] Physicians Ablation Encounters Start End Encounter Admission Attending Care Care Encounter Source Date/Time Date/Time Type Type Clinicians Facility Department ID 2019-04-02 2019-04-02 [facility] [id number] [facility] [address] 15:07:00 15:07:00 [facility] Family Medicine l Medicine Outpati ent Clinics 2019-03-16 2019-03-16 [facility] [id number] [facility] 17:04:00 17:04:00 [facility] Family Medicine l Medicine Outpati ent Clinics 2018-12-03 2018-12-03 [facility] [id number] [facility] 16:41:00 16:41:00 [facility] Family Medicine l Medicine Outpati ent Clinics 2018-11-18 2018-11-18 [facility] [id number] 08:00:00 08:00:00 t [facility] Family Medicine l Medicine Outpati ent Clinics 2018-07-22 2018-07-22 [facility] [id number] 08:30:00 08:30:00 t [facility] Family Medicine l Medicine Outpati ent Clinics 2018-06-10 2018-06-10 [facility] [id number] 09:53:00 09:53:[address] Luke s - [address] [facility] Medicine Outpati ent Clinics 2018-03-23 2018-03-23 [facility] [id number] 14:00:00 14:00:[address] Luke s - Drive [facility] Medicine Outpati ent Clinics 2018-03-19 2018-03-19 [facility] [id number] 10:45:00 10:45:[address] Luke s - Drive [facility] Medicine Outpati ent Clinics 2017-11-10 2017-11-10 [facility] [id number] 10:15:00 10:15:[address] Luke s - [address] [facility] Medicine Outpati ent Clinics 2017-11-06 2017-11-06 [facility] [id number] 08:00:00 08:00:[address] Luke s - Drive [facility] Medicine Outpati ent Clinics 2017-09-23 2017-09-23 [facility] [id number] 16:07:00 16:07:00 t [address] [employer] s - Drive [facility] Medicine Outpati ent Clinics 2017-09-03 2017-09-03 AppointRHIANNON Su [facility] 4 [id number] Univers 11:00:00 11:00:00 t; KARISSA CLEANING gy Center it y of Seferino HOOPER s [employer] Physic i ans 2017-08-27 2017-08-27 Appointmen RHIANNON HOOPER [facility] 4 [id number] Univers 14:10:00 14:10:00 t; KARISSA CLEANING gy Center it y of [place] HOOPER NP Physic i ans 2017-08-21 2017-08-21 Appointmen RHIANNON HOOPER [facility] 4 [id number] Univers 10:10:00 10:10:00 t; KARISSA CLEANING gy Center it y of [place]er[place] HOOPER s [employer]ISSA [employer] Physic i ans 2017-08-14 2017-08-14 AppointRHIANNON Su [facility] 4 [id number] Univers 11:00:00 11:00:00 t; KARISSA CLEANING gy Center it y of [place] HOOPER s [employer]ARISSA [employer] Physic i ans 2017-07-31 2017-07-31 AppointRHIANNON Su [facility] 4 [id number] Univers 14:10:00 14:10:00 t; KARISSA CLEANING gy [facility] FARIAS s [employer] Physic i ans 2017-07-24 2017-07-24 AppointRHIANNON Su [facility] 4 [id number] Univers 13:20:00 13:20:00 t; KARISSA CLEANING gy Center it y of [place]er[place] HOOPER s KARISSA [employer] Physic i ans 2017-07-17 2017-07-17 AppointRHIANNON Su [facility] 4 [id number] Univers 14:10:00 14:10:00 t; KARISSA CLEANING gy Center it y of [place]er[place] HOOPER s [employer] Physic i ans 2017-07-03 2017-07-03 [facility] UROGY[facility]vin, [facility] Women's [id number] Univers 09:00:00 09:00:00 t; DEREA Center ity [address] 2017-06-26 2017-06-26 AppointRHIANNON Su [facility] 4 [id number] Univers 09:00:00 09:00:00 t; KARISSA CLEANING gy Center it y of Sefer[place] HOOPER s KARISSA [employer] Physic i ans 2017-06-25 2017-06-25 [facility] [id number] 09:30:00 09:30:00 t [place] [employer] [place] [facility] Family [facility] 2017-06-19 2017-06-19 Appointguerita FELDERHUNGRHIANNON FARIAS [facility] 4 [id number] Univers 15:20:00 15:20:00 t; KARISSA CLEANING gy Center it y of Seferino HOOPER s [employer]ARISSA [employer] Physic i ans 2017-06-12 2017-06-12 [facility] BRADFORDHUNGRHIANNON FARIAS [facility] 4 [id number] Univers 13:20:00 13:20:00 t; BLACK, DIRECTOR OF CORPORATE SALES gy Center it y of [facility] s BLACK, DIRECTOR OF CORPORATE SALES Physic i ans 2017-06-09 2017-06-09 Appointmen RUFUS, UTP UTP [id number] Univers 09:20:00 09:20:00 t; BLACK, DIRECTOR OF CORPORATE SALES ity of [place], [place] BLACK, DIRECTOR OF CORPORATE SALES Physic i ans 2016-12-19 2016-12-19 Appointmen RUFUS, UTP UTP [id number] Univers 10:10:00 10:10:00 t; BLACK, DIRECTOR OF CORPORATE SALES ity of [place], [place] BLACK, DIRECTOR OF CORPORATE SALES Physic i ans 2016-11-28 2016-11-28 Appointmen RUFUS, UTP UTP [id number] Univers 10:10:00 10:10:00 t; BLACK, DIRECTOR OF CORPORATE SALES ity of [place], [place] BLACK, DIRECTOR OF CORPORATE SALES Physic i ans 2016-09-12 2016-09-12 Appointmen RUFUS, UTP UTP [id number] Univers 13:20:00 13:20:00 t; BLACK, DIRECTOR OF CORPORATE SALES ity of [place], [place] BLACK, DIRECTOR OF CORPORATE SALES Physic i ans 2015-11-30 2015-11-30 Appointmen RUFUS, UTP UTP [id number] Univers 09:00:00 09:00:00 t; BLACK, DIRECTOR OF CORPORATE SALES ity of [place], [place] BLACK, DIRECTOR OF CORPORATE SALES Physic i ans 2015-10-20 2015-10-20 Appointmen LAVERN, UTP UTP [id number] Univers 10:10:00 10:10:00 t; [facility] Physi ci ans 2015-09-21 2015-09-21 Appointmen LAVERN, UTP UTP [id number] Univers 13:00:00 13:00:00 t; Preeti CARTER [place] NINA, M.D. Physi ci ans 2015-08-10 2015-08-10 Appointmen LAVERN, UTP UTP [id number] Univers 09:30:00 09:30:00 t; [facility] Myrtle CARTER M.D. Physi ci ans 2015-08-02 2015-08-02 [facility] [id number] Univers 08:30:00 08:30:00 t; Preeti CARTER [place], [place] Preeti CARTER Physi ci ans 2015-07-05 2015-07-[address] [facility] UTP [id number] Univers 08:30:00 08:30:00 t; Preeti CARTER [place], [place] Preeti CARTER Physi ci ans Results Test Description Test Time Test Comments Results Result Comments Source [[facility]] CULTURE, URINE, ROUTINE 2017-08-28 14:25:01 Test Item Value Reference Range Interpretation Comme nts ORGANISM (test code = 699-9) Escherichia coliEnterococcus Species FINAL REPORT (test code = FINAL 50,000 - 100,000 CFU/mL Escherichia coli REPORT) 10,000 - 50,000 CFU/mL EnterococcusSpecies 10,000 - 50,000 CFU/mL Skin Nina [facility][H] [id number] 14:25:01 Test Item Value Reference Range Interpretation Comments ORGANISM (test code = Enterococcus 699-9) Species Ampicillin (test code - S = Ampicillin) Levofloxacin (test - S code = Levofloxacin) Nitrofurantoin (test - S code = Nitrofurantoin) Tetracycline (test - S code = Tetracycline) Vancomycin (test code SEE NOTES S S= Latoya ceptible, = Vancomycin) R= Resistant, I= Intermediate, N/A= Not Applicable [facility][H] [id number] 14:25:01 Test Item Value Reference Range Interpretation Comments ORGANISM (test code = 699-9) Escherichia coli Ampicillin (test code = - S Ampicillin) Ampicillin/Sulbactam (test - S code = Ampicillin/Sulbactam) Cefazolin (test code = - S Cefazolin) Ceftriaxone (test code = - S Ceftriaxone) Ciprofloxacin (test code = - S Ciprofloxacin) Cefepime (test code = - S Cefepime) ESBL Confirmation (test code - = ESBL Confirmation) Gentamicin (test code = - S Gentamicin) Levofloxacin (test code = - S Levofloxacin) Nitrofurantoin (test code = - S Nitrofurantoin) Trimethoprim/Sulfamethoxazol - R e (test code = Trimethoprim/Sulfamethoxazol e) Tobramycin (test code = - S Tobramycin) Tetracycline (test code = - S Tetracycline) [facility][O] Urine Dipstick (In Office)2017-08-27 15:29:00 Test Item Value Reference Range Interpretation Comments LEUKOCYTES (test code = LEUKOCYTES) 2+ A NITRITE; Normal (test code = 39197-0) neg N UROBILINOGEN; Normal (test code = 0.2 N 69671-3) PROTEIN; Normal (test code = 23730-6) neg N pH (test code = pH) 6.5 N URINE BLOOD; Abnormal (test code = trace A 69146-7) SPECIFIC GRAVITY; Normal (test code = 1.020 N 2965-2) KETONES; Normal (test code = 50712-8) neg N BILIRUBIN; Normal (test code = 76074-5) neg N GLUCOSE; Normal (test code = 1547-9) neg N [facility][H] CULTURE, URINE, [id number] 15:37:01 Test Item Value Reference Range Interpretation Comments ORGANISM (test code = Escherichia coli 699-9) FINAL REPORT (test 50,000 - 100,000 CFU/mL code = FINAL REPORT) Escherichia coli . 50,000 - 100,000 CFU/mL Skin Nina [facility][H] [id number] 15:37:01 Test Item Value Reference Range Interpretation Comments ORGANISM (test code = Escherichia coli 699-9) Amikacin (test code = - S Amikacin) Ampicillin (test code - S = Ampicillin) Ampicillin/Sulbactam - S (test code = Ampicillin/Sulbactam) Cefazolin (test code - S = Cefazolin) Ceftazidime (test - S code = Ceftazidime) Ceftriaxone (test - S code = Ceftriaxone) Ciprofloxacin (test - S code = Ciprofloxacin) Cefepime (test code = - S Cefepime) ESBL Confirmation - (test code = ESBL Confirmation) Gentamicin (test code - S = Gentamicin) Levofloxacin (test - S code = Levofloxacin) Nitrofurantoin (test - S code = Nitrofurantoin) Piperacillin/Tazobact - S am (test code = Piperacillin/Tazobact am) Trimethoprim/Sulfamet - S hoxazole (test code = Trimethoprim/Sulfamet hoxazole) Tobramycin (test code - S = Tobramycin) Cefuroxime (test code - S = Cefuroxime) Meropenem (test code - S = Meropenem) Tetracycline (test SEE NOTES R S= Suscep tible, code = Tetracycline) R= Resi stant, I= Intermediate, N/A= Not Applicable [facility][O] Urine Dipstick (In Office)2017-08-21 12:24:00 Test Item Value Reference Range Interpretation Comments LEUKOCYTES (test code = LEUKOCYTES) 2+ A NITRITE; Normal (test code = 24866-9) NEG N UROBILINOGEN; Normal (test code = 0.2 N 13472-1) PROTEIN; Abnormal (test code = 40962-6) 30 MG A pH (test code = pH) 5.5 N URINE BLOOD; Abnormal (test code = 2+ A 18177-3) SPECIFIC GRAVITY; Normal (test code = 1.030 N 2965-2) KETONES; Normal (test code = 54209-4) NEG N BILIRUBIN; Normal (test code = 32224-7) NEG N GLUCOSE; Normal (test code = 1547-9) NEG N [facility][O] Urine Dipstick (In Office)2017-06-09 10:06:00 Test Item Value Reference Range Interpretation Comments LEUKOCYTES (test code = LEUKOCYTES) 2+ A NITRITE; Normal (test code = 39901-7) NEG N UROBILINOGEN; Normal (test code = 0.2 N 27750-2) PROTEIN; Normal (test code = 78585-3) NEG N pH (test code = pH) 7.0 N URINE BLOOD; Abnormal (test code = 2+ A 92309-9) SPECIFIC GRAVITY; Normal (test code = 1.010 N 2965-2) KETONES; Normal (test code = 01534-7) NEG N BILIRUBIN; Normal (test code = NEG N 37468-7) GLUCOSE; Abnormal (test code = 1547-9) 250 MG A [facility]] BV/ VAGINITIS PANEL DNA PROBE AFFIRM 2017-06-09 09:20:01 Test Item Value Reference Range Interpretation Comments Trichomonas vaginalis DNA (test code Negative Negative = 32199-6) Gardnerella vaginalis DNA; Abnormal Positive Negative A (test code = 6410-5) Grace sp. DNA; Abnormal (test code Positive Negative A = 38965-6) [facility]] CULTURE, URINE, [id number] 09:20:01 Test Item Value Reference Range Interpretation Comments ORGANISM (test code = Escherichia coli 699-9) FINAL REPORT (test >100,000 CFU/mL code = FINAL REPORT) Escherichia coli 10,000 - 50,000 CFU/mL Skin Nina [facility][H] [id number] 09:20:01 Test Item Value Reference Range Interpretation Comments ORGANISM (test code Escherichia coli = 699-9) Ciprofloxacin (test .75 S code = Ciprofloxacin) Levofloxacin (test 1.5 S code = Levofloxacin) Trimethoprim/Sulfame 32 R thoxazole (test code = Trimethoprim/Sulfame thoxazole) Ceftriaxone (test .094 S S= Suscept ible, code = Ceftriaxone) R= Resis tant, I= Intermediate, N/A= Not Applicable [facility]
--- NOTE | 2019-08-04 01:21 | RAD REPORT ---
EXAM DESCRIPTION: RAJInesana Angio08/04/2019 1:11 am CLINICAL HISTORY: Syncope COMPARISON: None TECHNIQUE: 50 cc Isovue 370 was administered intravenously. 3D MIP reconstruction performed All CT scans are performed using dose optimization technique as appropriate and may include automated exposure control or mA/KV adjustment according to patient size. FINDINGS: Mild plaque is present within the common carotid and internal carotid arteries bilaterally . Mild stenosis of the right external carotid artery. Left external carotid artery is normal. The left vertebral artery is dominant. Vertebral arteries appear unremarkable. No dissection 20 millimeter left thyroid nodule IMPRESSION: Mild plaque within the carotid arteries 20 millimeter left thyroid nodule. Nonemergent thyroid ultrasound recommended NASCET criteria used. Mild 0-49% stenosis Moderate 50-69% stenosis Severe 70-99% stenosis
--- NOTE | 2019-08-04 01:24 | RAD REPORT ---
EXAM DESCRIPTION: CTHead angio08/04/2019 1:08 am CLINICAL HISTORY: Syncope COMPARISON: None TECHNIQUE: CT angiogram of the head was obtained. 3D MIPS reconstruction performed. All CT scans are performed using dose optimization technique as appropriate and may include automated exposure control or mA/KV adjustment according to patient size. FINDINGS: The basilar, internal carotid, anterior cerebral, middle cerebral and posterior cerebral a rteries do not demonstrate a significant stenosis. Minimal plaque within the distal internal carotid arteries bilaterally An aneurysm is not seen. IMPRESSION: No significant abnormality displayed
--- NOTE | 2019-08-04 08:25 | RAD REPORT ---
EXAM DESCRIPTION: RAD - Chest Single View - 08/03/2019 10:59 pm CLINICAL HISTORY: DIZZINESS Chest pain. COMPARISON: Chest Single View dated 03/22/2018; Chest Single View dated 03/14/2018; Chest Single View d ated 03/09/2018; Chest Single View dated 01/25/2018 FINDINGS: Portable technique limits examination quality. The lungs are underinflated which results in vascular crowding. The heart is mildly prominent in size . No displaced fractures.
--- NOTE | 2019-08-04 10:33 | ER ---
Nurse's Notes [facility] Name: Bob Armstrong Age: 58 yrs Sex: Female : 1960 Arrival Date: 08/03/2019 Time: 16:57 Bed 5 Private MD: Diagnosis: Hyperglycemia, unspecified Presentation: 08/02 17:30 Chief complaint: Patient states: My blood sugar has been in the 500s for the past few ca1 days. I feel tired, thirsty constantly. Denies abdl pain, N/V/diarrhea. Coronavirus screen: Proceed with normal triage. Patient denies a cough. Patient denies shortness of breath or difficulty breathing. Patient denies measured and/or subjective temperature greater than 100.4F prior to today's visit. Patient denies travel on a cruise ship or to a country the [facility] currently lists as an affected area. Patient denies contact with known and/or suspected case of COVID-19. Ebola Screen: Patient negative for fever greater than or equal to 101.5 degrees Fahrenheit, and additional compatible Ebola Virus Disease symptoms Patient denies exposure to infectious person. Patient denies travel to an Ebola-affected area in the 21 days before illness onset. No symptoms or risks identified at this time. Initial Sepsis Screen: Does the patient meet any 2 criteria? No. Patient's initial sepsis screen is negative. Does the patient have a suspected source of infection? No. Patient's initial sepsis screen is negative. Risk Assessment: Do you want to hurt yourself or someone else? Patient reports no desire to harm self or others. Onset of symptoms was August 03, 2019. 17:30 Method Of Arrival: Ambulatory ca1 17:30 Acuity: JERRY 3 ca1 Historical: - Allergies: 17:37 Lyrica; ca1 17:37 Methylprednisolone; ca1 17:37 pregabalin; ca1 17:37 zpack; ca1 - Home Meds: 17:37 atorvastatin 10 mg oral tab 1 tab once daily [Active]; trazodone 150 mg Oral tab ca1 [Active]; Abilify 30 mg oral tab 1 tab once daily [Active]; Nuvigil 250 mg oral tab 1 tab once daily [Active]; Claritin 10 mg Oral tab 1 tab once daily [Active]; lisinopril-hydrochlorothiazide 20-12.5 mg oral tab 1 tab once daily [Active]; metformin 500 mg Oral tab 1 tab 2 times per day [Active]; Tresiba FlexTouch U-200 200 unit/mL (3 mL) subcutaneous inpn [Active]; Bydureon 2 mg/0.65 mL subcutaneous pnij [Active]; - PMHx: 17:37 Depression; Diabetes - NIDDM; Hyperlipidemia; Hypertension; insomnia; osteoarthritis; ca1 Rheumatoid Arthritis; - Immunization history:: Adult Immunizations up to date. - Social history:: Smoking status: Patient denies any tobacco usage or history of. Screenin:35 Abuse screen: Denies threats or abuse. Denies injuries from another. Nutritional hb screening: No deficits noted. Tuberculosis screening: No symptoms or risk factors identified. Fall Risk None identified. Assessment: 18:35 General: Appears in no apparent distress. Behavior is calm, cooperative. Pain: Pain hb currently is 5 out of 10 on a pain scale. Neuro: Level of Consciousness is awake, alert, obeys commands, Oriented to person, place, time, situation, Reports headache. Cardiovascular: Capillary refill < 3 seconds Patient's skin is warm and dry. Respiratory: Airway is patent Respiratory effort is even, unlabored, Respiratory pattern is regular, symmetrical. GI: No signs and/or symptoms were reported involving the gastrointestinal system. : No signs and/or symptoms were reported regarding the genitourinary system. EENT: No signs and/or symptoms were reported regarding the EENT system. Derm: Skin is pink, warm \T\ dry. Musculoskeletal: No signs and/or symptoms reported regarding the musculoskeletal system. 21:51 Reassessment: Patient appears in no apparent distress at this time. Patient and/or mg2 family updated on plan of care and expected duration. Pain level reassessed. Patient is alert, oriented x 3, equal unlabored respirations, skin warm/dry/pink. 23:01 Reassessment: Patient appears in no apparent distress at this time. Patient and/or mg2 family updated on plan of care and expected duration. Pain level reassessed. Patient is alert, oriented x 3, equal unlabored respirations, skin warm/dry/pink. 08/03 01:01 Reassessment: Patient appears in no apparent distress at this time. Patient and/or mg2 family updated on plan of care and expected duration. Pain level reassessed. Patient is alert, oriented x 3, equal unlabored respirations, skin warm/dry/pink. 02:02 Reassessment: Patient appears in no apparent distress at this time. Patient states mg2 symptoms have improved. Vital Signs: 08/02 17:30 BP 144 / 71; Pulse 78; Resp 17 S; Temp 97.4(TE); Pulse Ox 98% on R/A; Weight 126.55 kg ca1 (R); Height 5 ft. 11 in. (180.34 cm) (R); Pain 0/10; 20:00 BP 106 / 58; Pulse 80; Resp 18; Pulse Ox 100% on R/A; mg2 21:00 BP 105 / 52; Pulse 73; Resp 18; Pulse Ox 99% ; mg2 21:30 BP 114 / 67; Pulse 69; Resp 18; Pulse Ox 97% on R/A; mg2 22:30 BP 120 / 60; Pulse 70; Resp 18; Pulse Ox 100% on R/A; mg2 08/03 01:30 BP 120 / 89; Pulse 78; Resp 18; Temp 98; Pulse Ox 100% on R/A; mg2 08/02 17:30 Body Mass Index 38.91 (126.55 kg, 180.34 cm) ca1 ED Course: 08/02 16:57 Patient arrived in ED. fj1 17:33 Triage completed. ca1 17:37 Arm band placed on right wrist. ca1 18:35 Patient has correct armband on for positive identification. Bed in low position. Call hb light in reach. Side rails up X 1. 18:49 Abena Chan, DANTE is Primary Nurse. hb 18:50 James Gutierrez PA is PHCP. [facility] 18:50 Osmar Magallon MD is Attending Physician. jmm 19:40 Inserted saline lock: 20 gauge in right antecubital area, using aseptic technique. mg2 Blood collected. 19:52 No provider procedures requiring assistance completed. mg2 08/03 01:52 Chest Single View In Process Unspecified. EDMS 02:03 IV discontinued, intact, bleeding controlled, No redness/swelling at site. Pressure mg2 dressing applied. Administered Medications: 08/02 19:40 Drug: NS 0.9% 1000 ml Route: IV; Rate: 1 bolus; Site: right antecubital; mg2 08/03 02:03 Follow up: Response: No adverse reaction; IV Status: Completed infusion; IV Intake: mg2 1000ml Point of Care Testing: Blood Glucose: 08/02 17:37 Blood Glucose: 371 mg/dL; ca1 Ranges: Intake: 08/03 02:03 IV: 1000ml; Total: 1000ml. mg2 Outcome: 01:30 Discharge ordered by MD. rhoades 02:03 Discharged to home ambulatory. mg2 02:03 Condition: stable 02:03 Discharge instructions given to patient, Instructed on discharge instructions, follow up and referral plans. Demonstrated understanding of instructions, follow-up care. 02:03 Patient left the ED. mg2 Signatures: Dispatcher [employer] EDMS James Gutierrez PA PA jmm Baxter, Heather, RN RN Erik Reed RN RN mg2 Keyanna Moffett RN RN ca1 Shoaib Drake fj
--- NOTE | 2019-08-04 10:33 | EDPHYS ---
Physician Documentation [facility] Name: Bob Armstrong Age: 58 yrs Sex: Female : 1960 Arrival Date: 08/03/2019 Time: 16:57 Bed 5 Private MD: ED Physician Osmar Magallon HPI: 08/02 19:03 This 58 yrs old Female presents to ER via Ambulatory with complaints of High [facility] Blood Sugar. 19:03 The patient presents with dizziness. Onset: The symptoms/episode began/occurred jmm gradually. Modifying factors: The symptoms are alleviated by nothing, the symptoms are aggravated by changing position. Associated signs and symptoms:. This is a 58 year old female that complains of increased thirst, increased urination beginning approx 1 week ago. Patient states her bgl have increased over the past week. Patient also complains of dizziness which has been ongoing for the past 3 months. . Historical: - Allergies: 17:37 Lyrica; ca1 17:37 Methylprednisolone; ca1 17:37 pregabalin; ca1 17:37 zpack; ca1 - Home Meds: 17:37 atorvastatin 10 mg oral tab 1 tab once daily [Active]; trazodone 150 mg Oral tab ca1 [Active]; Abilify 30 mg oral tab 1 tab once daily [Active]; Nuvigil 250 mg oral tab 1 tab once daily [Active]; Claritin 10 mg Oral tab 1 tab once daily [Active]; lisinopril-hydrochlorothiazide 20-12.5 mg oral tab 1 tab once daily [Active]; metformin 500 mg Oral tab 1 tab 2 times per day [Active]; Tresiba FlexTouch U-200 200 unit/mL (3 mL) subcutaneous inpn [Active]; Bydureon 2 mg/0.65 mL subcutaneous pnij [Active]; - PMHx: 17:37 Depression; Diabetes - NIDDM; Hyperlipidemia; Hypertension; insomnia; osteoarthritis; ca1 Rheumatoid Arthritis; - Immunization history:: Adult Immunizations up to date. - Social history:: Smoking status: Patient denies any tobacco usage or history of. ROS: 19:03 Constitutional: Negative for fever, chills, and weight loss, Cardiovascular: Negative jmm for chest pain, palpitations, and edema, Respiratory: Negative for shortness of breath, cough, wheezing, and pleuritic chest pain, Abdomen/GI: Negative for abdominal pain, nausea, vomiting, diarrhea, and constipation. 19:03 Neuro: Positive for dizziness. 19:03 All other systems are negative. 19:03 All other systems are negative. Exam: 19:03 Constitutional: This is a well developed, well nourished patient who is awake, alert, jmm and in no acute distress. Head/Face: atraumatic. Eyes: EOMI, no conjunctival erythema appreciated ENT: Moist Mucus Membranes Neck: Trachea midline, Supple Chest/axilla: Normal chest wall appearance and motion. Cardiovascular: Regular rate and rhythm. No edema appreciated Respiratory: Normal respirations, no respiratory distress appreciated Abdomen/GI: Non distended, soft Back: Normal ROM Skin: General appearance color normal MS/ Extremity: Moves all extremities, no obvious deformities appreciated, no edema noted to the lower extremities 19:03 Neuro: Orientation: is normal, Mentation: is normal, Memory: is normal. 19:03 Psych: Behavior/mood is pleasant, cooperative. Vital Signs: 17:30 BP 144 / 71; Pulse 78; Resp 17 S; Temp 97.4(TE); Pulse Ox 98% on R/A; Weight 126.55 kg ca1 (R); Height 5 ft. 11 in. (180.34 cm) (R); Pain 0/10; 20:00 BP 106 / 58; Pulse 80; Resp 18; Pulse Ox 100% on R/A; mg2 21:00 BP 105 / 52; Pulse 73; Resp 18; Pulse Ox 99% ; mg2 21:30 BP 114 / 67; Pulse 69; Resp 18; Pulse Ox 97% on R/A; mg2 22:30 BP 120 / 60; Pulse 70; Resp 18; Pulse Ox 100% on R/A; mg2 08/03 01:30 BP 120 / 89; Pulse 78; Resp 18; Temp 98; Pulse Ox 100% on R/A; mg2 08/02 17:30 Body Mass Index 38.91 (126.55 kg, 180.34 cm) ca1 MDM: 08/02 19:03 Patient medically screened. [facility] 08/03 00:51 Data reviewed: vital signs, nurses notes. Counseling: I had a detailed discussion with [facility] the patient and/or guardian regarding: the historical points, exam findings, and any diagnostic results supporting the discharge/admit diagnosis, lab results, the need for outpatient follow up. 01:21 Data reviewed: lab test result(s). ED course: Patient is alert and non toxic in jmm appearance in ED. Normal gait. CTA is negative. Patient advised to follow up with neuro for further evaluation. Patient is advised to follow up with PCP and otherwise given strict return precautions. Patient understood and agrees with the plan. . 08/02 19:11 Order name: Urine Dipstick--Ancillary (enter results) em1 08/02 19:23 Order name: Glucose, Ancillary Testing; Complete Time: 19:38 EDMS 08/03 00:50 Order name: Basic Metabolic Panel; Complete Time: 00:57 EDMS 08/03 00:50 Order name: Liver (Hepatic) Function; Complete Time: 00:57 EDMS 08/03 00:50 Order name: Troponin (Emerg Dept Use Only); Complete Time: 00:57 EDMS 08/03 00:50 Order name: NT PRO-BNP; Complete Time: 00:57 EDMS 08/02 19:06 Order name: Cardiac monitoring; Complete Time: 19:51 [facility] 08/02 19:06 Order name: EKG - Nurse/Tech; Complete Time: 19:51 [facility] 08/02 19:06 Order name: IV Saline Lock; Complete Time: 19:51 [facility] 08/03 00:50 Order name: Magnesium; Complete Time: 00:57 EDMS 08/03 00:50 Order name: CBC with Automated Diff; Complete Time: 00:57 EDMS 08/03 00:50 Order name: Protime (+INR); Complete Time: 00:57 EDMS 08/03 01:35 Order name: Head Brain Wo Cont 08/03 01:43 Order name: Chest Single View ED08/03 01:44 Order name: CT; Complete Time: 02:17 EDMS 08/03 01:44 Order name: CT; Complete Time: 02:17 EDIA 08/02 19:06 Order name: Labs collected and sent; Complete Time: 19:51 [facility] 08/02 19:06 Order name: O2 Per Protocol; Complete Time: 19:51 [facility] 08/02 19:06 Order name: O2 Sat Monitoring; Complete Time: 19:51 [facility] 08/02 19:12 Order name: Urine Dipstick-Ancillary (obtain specimen); Complete Time: 19:51 jmm Administered Medications: 08/02 19:40 Drug: NS 0.9% 1000 ml Route: IV; Rate: 1 bolus; Site: right antecubital; mg2 08/03 02:03 Follow up: Response: No adverse reaction; IV Status: Completed infusion; IV Intake: mg2 1000ml Point of Care Testing: Blood Glucose: 08/02 17:37 Blood Glucose: 371 mg/dL; ca1 Ranges: Critical Glucose Levels:Adult <50 mg/dl or >400 mg/dl <40 mg/dl or >180 mg/dl Disposition: 08/03 07:15 Co-signature as Attending Physician, Osmar Magallon MD. rn Disposition: 08/04/19 01:30 Discharged to Home. Impression: Hyperglycemia, unspecified. - Condition is Stable. - Discharge Instructions: Dizziness, Hyperglycemia. - Medication Reconciliation Form, Thank You Letter, Antibiotic Education, Prescription Opioid Use form. - Follow up: Private Physician; When: 2 - 3 days; Reason: Recheck today's complaints, Continuance of care, Re-evaluation by your physician. Signatures: Dispatcher [employer] EDMS James Gutierrez PA PA Osmar Pop MD MD rn Gardose, Michele, RN RN mg2 Keyanna Moffett RN RN ca1 Corrections: (The following items were deleted from the chart) 02:03 01:30 08/04/2019 01:30 Discharged to Home. Impression: Hyperglycemia, unspecified. mg2 Condition is Stable. Forms are Medication Reconciliation Form, Thank You Letter, Antibiotic Education, Prescription Opioid Use. Follow up: Private Physician; When: 2 - 3 days; Reason: Recheck today's complaints, Continuance of care, Re-evaluation by your physician. [facility]
--- NOTE | 2019-08-04 12:24 | EKG ---
Test Date: 2019-08-03 Test Time: 19:27:27 [place]ge Hand: MEASUREMENT RESULTS: Intervals: Rate: 70 DC: 170 QRSD: 88 QT: 406 QTc: 438 [place]: P: 43 DC: 170 QRS: 28 T: 27 INTERPRETIVE STATEMENTS: Normal sinus rhythm Low voltage QRS Cannot rule out Anterior infarct, age undetermined Abnormal ECG Compared to ECG 03/22/2018 18:33:49 Low QRS voltage now present Myocardial infarct finding now present T-wave abnormality no longer present Prolonged QT interval no longer present Electronically Signed On 08-04-19 12:22:24 CDT by Anival Hargrove
[2019-08-04 13:05] LABS: Urine Blood 2+ (NEG); Urine Glucose 3+ (NEG); Urine Protein NEGATIVE (NEG)
[2019-08-04 15:29] VITALS: O2SAT 100
[2019-08-04 15:31] VITALS: BP 120/89; TEMP 98
== END 2019-08-04 02:03 | disposition home or self-care (01) ==
LOC: ER 16:56
DX: E11.65 Type 2 diabetes mellitus with hyperglycemia (principal); I10 Essential (primary) hypertension; F32.9 Major depressive disorder, single episode, unspecified; E78.5 Hyperlipidemia, unspecified; Z79.4 Long term (current) use of insulin; Z88.1 Allergy status to other antibiotic agents; Z88.8 Allergy status to other drugs, medicaments and biological substances
CPT/HCPCS: 36415; 70450; 70496; 70498; 71045; 80048; 80076; 81003; 82947; 83735; 83880; 84484; 85025; 85610; 93005; 96360; 96361; 99284; J7030; Q9967

== ENCOUNTER 2019-09-30 01:59 | Inpatient (IN) | payer OTHER, SELFPAY ==
--- OUTSIDE RECORDS SUMMARY | 2019-09-30 02:01 | XMS REPORT | Clinical Summary ---
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
--- OUTSIDE RECORDS SUMMARY | 2019-09-30 02:03 | XMS REPORT ---
:1960 Author Organization [employer] Care Team Providers Name Role Phone TravisLuciano Provider Role Unavailable Allergies No Known Allergies Problems Problem Type Condition Code Onset Dates Condition Statu s Problem Fibromyalgia M79.7 Active Problem Morbid obesity E66.01 Active Problem Diabetic neuropathy E11.40 Active Problem Primary osteoarthritis of both knees M17.0 Active Problem Rheumatoid arthritis M06.9 Active Problem Chronic obstructive pulmonary J44.9 Active disease, unspecified COPD type Problem Fatty liver K76.0 Active Problem Insomnia G47.00 Active Problem Benign essential HTN I10 Active Problem Vitamin D deficiency E55.9 Active Problem Circadian rhythm sleep disorder, 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
--- OUTSIDE RECORDS SUMMARY | 2019-09-30 02:03 | XMS REPORT | Continuity of Care Document ---
:1960 Author Organization [facility] t Address [address] [place] [address] Care Team Providers Name Role Phone Asked, Pcp Primary Care Physician Unavailable RUFUS Attending Clinician Unavailable [id number] Attending Clinician Unavailable LAVERN Attending Clinician Unavailable Problems Condition Condition Condition Status Onset Resolution Last Treating Co mments Source Name Details Category Date Date Treatment Clinician Date GERD GERD Problem Active [facility] without without [facility] - esophagiti esophagiti Me moria s s l [facility] Overactive Overactive Problem Active [facility] bladder bladder [facility] Insomnia Insomnia Problem Active [facility] Iron Iron Problem Active [facility] deficiency deficiency Ted kes - anemia due anemia due Me moria to chronic to chronic l blood loss blood loss Ou tpati ent Clinics Obstructiv Obstructiv Problem Active [facility] e sleep e sleep [facility] - apnea apnea Memoria l [facility] Ankylosing Ankylosing Problem Active C [facility] spondyliti spondyliti Ted kes - s of s of Memoria multiple multiple l sites in sites in [facility] i spine spine ent Clinics Bipolar Bipolar Problem Active [facility] disorder disorder [facility] Restless Restless Problem Active [facility] leg leg [facility] - syndrome syndrome Memori a l [facility] Fibromyalg Fibromyalg Problem Active [facility] ia ia [facility] Diabetes Diabetes Problem Active [facility] t type 2, type 2, Lukes - controlled controlled Me moria l [facility] Benign Benign Diagnosis Active [facility] essential essential Luke s - HTN HTN Memoria l [facility] Vitamin D Vitamin D Problem Active [facility] deficiency deficiency Ted kes - Memoria l [facility] Hyperlipid Hyperlipid Problem Active C [...] d COPD d COPD Clinics type type Motion Motion Diagnosis Active [facility] sickness, sickness, Luke s - initial initial Memoria encounter encounter l [facility] Psoriatic Psoriatic Diagnosis Active C [facility] arthritis arthritis Luke s - Memoria l [facility] Polyp of Polyp of Diagnosis Active [facility] colon, colon, Lukes - unspecifie unspecifie Me moria d part of d part of l colon, colon, Outpati unspecifie unspecifie en t d type d type Clinics History of History of Problem Resolve Univers [...] Uni vers acute acute HL7.CCDAR2 [facility] [place] [facility] Post-opera Post-opera Problem Active U nivers tive state tive state HL7.CCDAR2 [facility] [place] [facility] UTI UTI Problem Active Univers (urinary (urinary HL7.CCDAR2 it y of tract tract [place] infection) infection) Ph ysici ans Postop Postop Problem Active Univers check check HL7.CCDAR2 [facility] [place] [facility] Enuresis Enuresis Problem Active Unive rs HL7.CCDAR2 [facility] [place] [facility] Nocturia Nocturia Problem Active Unive rs HL7.CCDAR2 [facility] [place] [facility] Chronic Chronic Problem Active Univers cystitis cystitis HL7.CCDAR2 it [facility] [place] [facility] Frequency Frequency Problem Active Uni vers HL7.CCDAR2 [facility] [place] [facility] Recent Recent Problem Active Univers urinary urinary HL7.CCDAR2 ity of tract tract [place] infection infection Phys ici ans Yeast Yeast Problem Active Univers vaginitis vaginitis HL7.CCDAR2 [facility] [place] [facility] Vaginitis Vaginitis Problem Active Uni vers HL7.CCDAR2 [facility] [place] [facility] Mixed urge Mixed urge Problem Active U nivers and stress and stress HL7.CCDAR2 ity of [place] ans Urinary Urinary Problem Active Univers urgency urgency HL7.CCDAR2 [facility] [place] [facility] Vaginal Vaginal Problem Active Univers burning burning HL7.CCDAR2 [facility] [place] [facility] Vaginal Vaginal Problem Active Univers irritation irritation HL7.CCDAR2 [facility] [place] [facility] Vaginal Vaginal Problem Active Univers discharge discharge HL7.CCDAR2 [facility] [place] [facility] Bacterial Bacterial Problem Active Uni vers vaginosis vaginosis HL7.CCDAR2 [facility] [place] [facility] Dysuria Dysuria Problem Active Univers HL7.CCDAR2 [facility] [place] [facility] Allergies, Adverse Reactions, Alerts Allergy Allergy Status Severity Reaction(s) Onset Inactive Treating Comm ents Source Name Type Date Date Clinician Lactase Propensi Active GI 2015-02 [place] to Intolerance 02-18 Metho di adverse 00:00: st reaction 00 s to drug Gabapent Propensi Active Other (See 2015-02 Got real [place] in ty to Comments) 02-18 dizzy Methodi adverse 00:00: st reaction 00 s to drug Pregabal Propensi Active Swelling 2015-02 [place] to 02-18 Methodi adverse 00:00: st reaction 00 s to drug Invokana Adverse Active Info Not [facility] Reaction Available [facility] Clinics Metformi Adverse Active Info Not [facility] t n HCl Reaction Available [facility] Lyrica Adverse Active Info Not [facility] Reaction Available [facility] Glimepir Adverse Active Info Not [facility] t timothy Reaction Available [facility] Lyrica drug Active Univers CAPS allergy [facility] [place] [facility] Family History Family Member Diagnosis Comments Start Date Stop Date Source Mother Family history of [facility] [place] diabetes mellitus Physici ans Mother [facility] history of [facility] [place] [facility] lung cancer Physicians Mother Family history of [facility] [place] [facility] [place] hypertension Physicians Father Family history of [facility] [place] stroke Physicians Brother Family history of [facility] diabetes mellitus Physici ans Natural father Stroke [facility] Natural mother Lung cancer [facility] Social History Social Habit Start Date Stop Date Quantity Comments Source Sex Assigned At [facility] ethodist Alcohol intake 2015-12-21 2015-12-21 [facility] [place] [facility] 00:00:00 non-drinker of alcohol (finding) Smoking Status Start Date Stop Date Source Never smoker [facility] Medications Ordered Filled Start Stop Current Ordering Indication Dosage Frequency Signature Comments Components Source Medication Medication Date Date Medication? Clinician (SIG) Name Name Furosemide Furosemide Yes Luciano 0.[address] 5-01 Travis [facility] - 00:00: Memoria 00 l [facility] Hydrocodone Hydrocodone 2017-02 Yes Luciano [address] -Acetaminop -Acetaminop 0-01 Travis as needed Lukes - hen hen 00:00: Memoria 00 l [facility] Tolterodine Tolterodine 2017-0 Yes BLACK 1 PO QD Univers Tartrate ER Tartrate ER 4-30 [place] ity of 4 MG Oral 4 MG Oral 00:00: N.P. Lionel as Capsule Capsule 00 Physici Extended Extended ans Release 24 Release 24 Hour Hour folic acid 2015-02 Yes 2mg QD Take 2 mg [place] (FOLVITE) 1 1-09 by mouth Meth gwen MG tablet 15:03: [...] Yes Q.5D Take by Maryana ston roquine 1-09 mouth 2 Methodi (PLAQUENIL) 15:03: (two) st 200 mg 09 times a tablet day. cyclobenzap 2015-02 Yes 10mg Q.[id number] Take 10 mg Waller rine - [id number] by mouth 3 Met hodi (FLEXERIL) 15:03: 3D (three) st 10 MG 09 times a tablet day. PILOCARPINE 2015-02 Yes 7.5mg Q.[id number] Take 7.5 [place] HCL ORAL 1-09 [id number] mg by Meth gwen 15:03: 3D mouth 3 st 09 (three) times a day. LISINOPRIL- 2015-02 Yes 2{tbl} QD Take 2 [place] HCTZ 1-09 tablets by Methodi 20-12.5 MG 15:03: mouth st COMBO DOSE 09 daily. dexlansopra 2015-02 Yes 60mg QD Take 60 mg [place] zole 1-09 by mouth Methodi (DEXILANT) 15:03: daily. st 60 mg 09 capsule exenatide 2015-02 Yes 2mg Q1W Inject 2 [place] microsphere 1-09 mg under Meth gwen s 15:03: the skin st (BYDUREON) 09 every 7 2 mg/0.65 days. mL pen injector insulin 2015-02 Yes 120U QD Inject 120 [place] degludec 02-18 Units Methodi (TRESIBA 15:03: under the st FLEXTOUCH 09 skin U-100) 100 daily. unit/mL (3 mL) insulin pen simvastatin 2015-02 Yes 40mg QD Take 40 mg [place] (ZOCOR) 40 02-18 by mouth Metho di MG tablet 15:03: nightly. st 09 aspirin 2015-02 Yes 81mg QD Take 81 mg [place] (ECOTRIN) 02-18 by mouth Method i 81 MG 15:03: daily. st enteric 09 coated tablet clopidogrel 2015-02 Yes 75mg QD Take 75 mg [place] (PLAVIX) 75 02-18 by mouth Meth gwen [...] day. suvorexant 2015-02 Yes QD Take by [place] (BELSOMRA) 02-18 mouth Methodi 20 mg 15:03: [...] 1{capsu QD Take 1 Maryana ston extract 02-18} capsule by Method i (CONI) 15:03: mouth st 200 mg 09 daily. [...] [facility] - [facility] l Outpati ent Clinics Brejeff Machadoo Yes Luciano [address] Ellipta Ellipta Travis [facility] Trazodone Trazodone Yes Luciano [address] HCl HCl Travis at bedtime [facility]ics Rafita Eller Yes Luciano not [facility] SoloStar SoloStar Travis defined [facility]ics Tolterodine Tolterodine Yes Luciano [address] Tartrate ER Tartrate ER Travis [facility] Hemocyte Hemocyte Yes Luciano [address] Plus Plus Travis [facility] Folic Acid Folic Acid Yes Luciano [address] [facility] Travis [facility] MetFORMIN MetFORMIN Yes Luciano [address] HCl ER HCl ER Travis at night [facility] ent Clinics Metformin Metformin Yes Luciano [address] HCl HCl Travis with a Lukes - meal in Memoria the l morning [facility]ics Saphris Saphris Yes Luciano [address] [facility] Travis under the Lukes - tongue and Memoria allow to l dissolve [facility] Paxil Paxil Yes Luciano [address] [facility] Travis in the Lukes - morning Memoria l [facility]ics Colace Colace Yes Luciano [address] Travis as needed [facility]ics Abilify 20 Abilify 20 Yes 1 po QHS Univers MG Oral MG Oral ity of Tablet Tablet [place] Physici ans Savella 50 Savella 50 Yes 1 po QHS Univers MG Oral MG Oral ity of Tablet Tablet [place] Physici ans Plavix 75 Plavix 75 Yes Unive rs MG Oral MG Oral ity of Tablet Tablet [place] Physici ans Simvastatin Simvastatin Yes U nivers 40 MG Oral 40 MG Oral ity of Tablet Tablet [place] Physici ans SulfaSALAzi SulfaSALAzi Yes U nivers ne 500 MG ne 500 MG ity o f Oral Tablet Oral Tablet [place] Physici ans Leflunomide Leflunomide Yes U nivers 20 MG Oral 20 MG Oral ity of Tablet Tablet [place] Physici ans CeleBREX CeleBREX Yes Univers CAPS CAPS [facility] of [place] [facility]ici ans Hydroxychlo Hydroxychlo Yes U nivers roquine roquine ity of Sulfate 200 Sulfate 200 [place] MG Oral MG Oral Physici Tablet Tablet ans Folic Acid Folic Acid Yes Uni vers 1 MG Oral 1 MG Oral ity o f Tablet Tablet [place] Physici ans Pilocarpine Pilocarpine Yes U nivers HCl - 7.5 HCl - 7.5 ity o f MG Oral MG Oral [place] Tablet Tablet Physici ans HydrOXYzine HydrOXYzine Yes U nivers HCl - 25 MG HCl - 25 MG i ty of Oral Tablet Oral Tablet [place] Physici ans TraZODone TraZODone Yes Unive rs HCl TABS HCl TABS [facility] [place] [facility]ici ans Tresiba Tresiba Yes Univers FlexTouch FlexTouch ity o f SOPN SOPN [place] Physici ans Bydureon Bydureon Yes Univers PEN PEN [facility] [place] [facility] Vital Signs Vital Name Observation Time Observation Value Comments Source BP Systolic 2017-09-03 130 mm[Hg] Location: [facility] 11::00 Position: [place] Physician s Sitting BP Diastolic 2017-09-03 80 mm[Hg] Location: [facility] 11::00 Position: [place] Physician s Sitting Height 2017-09-03 71 [in_us] [facility] 11:02:00 [place] Physician s Weight 2017-09-03 298 [lb_av] [facility] 11::00 [place] Physician s Body Mass Index 2017-09-03 41.56 kg/m2 [place] o f Calculated 11:02:00 [place] Physician s Temperature 2017-09-03 97.8 [degF] [facility] 11::00 [place] Physician s BP Systolic 2017-08-27 108 mm[Hg] Location: [facility] :27:00 Position: [place] Physician s Sitting BP Diastolic 2017-08-27 70 mm[Hg] Location: [facility] :27:00 Position: [place] Physician s Sitting Height 2017-08-27 71 [in_us] [facility] :27:00 [place] Physician s Weight 2017-08-27 298 [lb_av] [facility] :27:00 [place] Physician s Body Mass Index 2017-08-27 41.56 kg/m2 University o f Calculated 14:27:00 [place] Physician s Temperature 2017-08-27 97.9 [degF] [facility] 14:27:00 [place] Physician s BP Systolic 2017-08-21 130 mm[Hg] Location: NAIN; [facility] 10:23:00 Position: [place] Physician s Sitting BP Diastolic 2017-08-21 84 mm[Hg] Location: NAIN; [facility] 10:23:00 Position: [place] Physician s Sitting Height 2017-08-21 71 [in_us] University 10:23:00 [place] Physician s Weight 2017-08-21 298 [lb_av] University 10:23:00 [place] Physician s Body Mass Index 2017-08-21 41.56 kg/m2 University o f Calculated 10:23:00 [place] Physician s BP Systolic 2017-08-14 150 mm[Hg] Location: NAIN; [facility] 10:53:00 Position: [place] Physician s Sitting BP Diastolic 2017-08-14 72 mm[Hg] Location: NAIN; [facility] 10:53:00 Position: [place] Physician s Sitting Height 2017-08-14 71 [in_us] [facility] 10:53:00 [place] Physician s Weight 2017-08-14 298 [lb_av] [facility] 10:53:00 [place] Physician s Body Mass Index 2017-08-14 41.56 kg/m2 University o f Calculated 10:53:00 [place] Physician s Temperature 2017-08-14 98.8 [degF] University of 10:53:00 [place] Physician s BP Systolic 2017-07-31 132 mm[Hg] Location: NAIN; [facility] 13:51:00 Position: [place] Physician s Sitting BP Diastolic 2017-07-31 68 mm[Hg] Location: NAIN; [facility] 13:51:00 Position: [place] Physician s Sitting Height 2017-07-31 71 [in_us] University 13:51:00 [place] Physician s Weight 2017-07-31 298 [lb_av] University 13:51:00 [place] Physician s Body Mass Index 2017-07-31 41.56 kg/m2 University o f Calculated 13:51:00 [place] Physician s Temperature 2017-07-31 98.2 [degF] University of 13:51:00 [place] Physician s BP Systolic 2017-07-24 122 mm[Hg] Location: NAIN; [facility] 13:30:00 Position: [place] Physician s Sitting BP Diastolic 2017-07-24 72 mm[Hg] Location: NAIN; [facility] 13:30:00 Position: [place] Physician s Sitting Height 2017-07-24 71 [in_us] University 13:30:00 [place] Physician s Weight 2017-07-24 298 [lb_av] University of 13:30:00 [place] Physician s Body Mass Index 2017-07-24 41.56 kg/m2 University o f Calculated 13:30:00 [place] Physician s Temperature 2017-07-24 98.4 [degF] [facility] 13:30:00 [place] Physician s BP Systolic 2017-07-17 110 mm[Hg] Location: [facility]; [facility] 14:32:00 Position: [place] Physician s Sitting BP Diastolic 2017-07-17 80 mm[Hg] Location: [facility]; [facility] 14:32:00 Position: [place] Physician s Sitting Height 2017-07-17 71 [in_us] University 14:32:00 [place] Physician s Weight 2017-07-17 298 [lb_av] [facility] 14:32:00 [place] Physician s Body Mass Index 2017-07-17 41.56 kg/m2 University o f Calculated 14:32:00 [place] Physician s BP Systolic 2017-07-03 142 mm[Hg] Location: NAIN; [facility] 09:36:00 Position: [place] Physician s Sitting BP Diastolic 2017-07-03 80 mm[Hg] Location: [facility]; [facility] 09:36:00 Position: [place] Physician s Sitting Height 2017-07-03 71 [in_us] University of 09:36:00 [place] Physician s Weight 2017-07-03 298 [lb_av] University 09:36:00 [place] Physician s Body Mass Index 2017-07-03 41.56 kg/m2 University o f Calculated 09:36:00 [place] Physician s Temperature 2017-07-03 97.4 [degF] University of 09:36:00 [place] Physician s BP Systolic 2017-06-19 140 mm[Hg] Location: NAIN; [facility] 15:26:00 Position: [place] Physician s Sitting BP Diastolic 2017-06-19 80 mm[Hg] Location: NAIN; [facility] 15:26:00 Position: [place] Physician s Sitting Height 2017-06-19 71 [in_us] University of 15:26:00 [place] Physician s Weight 2017-06-19 298 [lb_av] [facility] 15:26:00 [place] Physician s Body Mass Index 2017-06-19 41.56 kg/m2 University o f Calculated 15:26:00 [place] Physician s Temperature 2017-06-19 97.9 [degF] [facility] 15:26:00 [place] Physician s BP Systolic 2017-06-12 118 mm[Hg] Location: [facility] 13:28:00 Position: [place] Physician s Sitting BP Diastolic 2017-06-12 80 mm[Hg] Location: [facility]; [facility] :28:00 Position: [place] Physician s Sitting Height 2017-06-12 71 [in_us] University 13:28:00 [place] Physician s Weight 2017-06-12 298 [lb_av] [facility] 13:28:00 [place] Physician s Body Mass Index 2017-06-12 41.56 kg/m2 University o f Calculated 13:28:00 [place] Physician s BP Systolic 2017-06-09 160 mm[Hg] Location: [facility]; [facility] 09:20:00 Position: [place] Physician s Sitting BP Diastolic 2017-06-09 92 mm[Hg] Location: [facility] 09:20:00 Position: [place] Physician s Sitting Height 2017-06-09 71 [in_us] [facility] 09:20:00 [place] Physician s Weight 2017-06-09 298 [lb_av] [facility] 09:20:00 [place] Physician s Body Mass Index 2017-06-09 41.56 kg/m2 University o f Calculated 09:20:00 [place] Physician s Temperature 2017-06-09 98.2 [degF] [facility] 09:20:00 [place] Phys[facility] s Procedures Procedure Date / Time Performing Clinician Source Performed [QLH] CULTURE, URINE, 2017-08-27 00:00:00 [facility] ROUTINE Physicians [[facility]] CULTURE, URINE, 2017-08-21 00:00:00 [facility] ROUTINE Physicians [[facility]] CULTURE, URINE, 2017-06-09 00:00:00 [facility] ROUTINE Physicians History of Ankle [facility] Surgery Physicians History of Hysteroscopy [facility] With Endometrial Physicians Ablation Encounters Start End Encounter Admission Attending Care Care Encounter Source Date/Time Date/Time Type Type Clinicians Facility Department ID 2019-09-22 2019-09-22 [facility] [id number] [facility] 08:30:00 08:30:00 [employer] [facility] Medicine Outpati ent Clinics 2019-08-10 2019-08-10 [facility] [id number] [facility] 13:30:00 13:30:00 [place] [employer] [place] s - [facility] l Medicine Outpati ent Clinics 2019-04-02 2019-04-02 [facility] [id number] 15:07:00 15:07:00 [place] [employer] s - Drive [facility] Medicine l Medicine Outpati ent Clinics 2019-03-16 2019-03-16 [facility] [id number] 17:04:00 17:04:00 [place] [employer] s - Drive [facility] Medicine l Medicine Outpati ent Clinics 2018-12-03 2018-12-03 [facility] [id number] 16:41:00 16:41:00 [place] [employer] s - Drive [facility] Medicine l Medicine Outpati ent Clinics 2018-11-18 2018-11-18 [facility] [id number] 08:00:00 08:00:00 [place] [employer] s - Drive [facility] Medicine l Medicine Outpati ent Clinics 2018-07-22 2018-07-22 [facility] [id number] 08:30:00 08:30:00 [place] [employer] s - Drive [facility] Medicine l Medicine Outpati ent Clinics 2018-06-10 2018-06-10 [facility] [id number] 09:53:00 09:53:00 [place] [employer] s - Drive [facility] Medicine l Medicine Outpati ent Clinics 2018-03-23 2018-03-23 [facility] [id number] 14:00:00 14:00:00 [place] [employer] s - Drive [facility] Medicine l Medicine Outpati ent Clinics 2018-03-19 2018-03-19 [facility] [id number] 10:45:00 10:45:00 [place] [employer] s - Drive [facility] Medicine l Medicine Outpati ent Clinics 2017-11-10 2017-11-10 [facility] [id number] 10[facility]15:00 10:15:00 [place] [employer] s - Drive Family [facility] l Medicine Outpati ent Clinics 2017-11-06 2017-11-06 [facility] [id number] 08:00:00 08:00:00 t [place] [facility] ent [facility] 2017-09-23 2017-09-23 [facility] [id number] [facility] 16:07:00 16:07:00 t [place] [facility] ent [facility] 2017-09-03 2017-09-03 [facility] BRADFORDHUNGJARRETT RHIANNON [facility] [id number] Univers 11:00:00 11:00:00 t; [employer] gy Center it y of RUFUS Sirenaashley Yi s [employer] Physic i ans 2017-08-27 2017-08-27 [facility] BRADFORDHUNGJARRETT RHIANNON [facility] [id number] Univers 14:10:00 14:10:00 t; [employer] gy Center it y of RUFUS Sirenaashley Yi s [employer] Physic i ans 2017-08-21 2017-08-21 [facility] BRADFORDHUNGJARRETT RHIANNON [facility] [id number] Univers 10:10:00 10:10:00 t; [employer] gy Center it y of Seferino HOOPER s [employer] Physic i ans 2017-08-14 2017-08-14 [facility] BRADFORDHUNGJARRETT RHIANNON [facility] [id number] Univers 11:00:00 11:00:00 t; [employer] gy Center it y of Seferino HOOPER s [employer] Physic i ans 2017-07-31 2017-07-31 [facility] BRADFORDHUNGJARRETT RHIANNON [facility] [id number] Univers 14:10:00 14:10:00 t; [employer] gy Center it y of RUFUS Sirenaashley Yi s [employer] Physic i ans 2017-07-24 2017-07-24 [facility] BRADFORDHUNGJARRETT RHIANNON [facility] [id number] Univers 13:20:00 13:20:00 t; [employer] gy Center it y of Seferino HOOPER s [employer] Physic i ans 2017-07-17 2017-07-17 Appointguerita FELDERHUNGJARRETT RHIANNON [facility] [id number] Univers 14:10:00 14:10:00 t; [employer] gy Center it y of Seferino HOOPER s [employer] Physic i ans 2017-07-03 2017-07-03 Appointguerita XENIADIANERHIANNON [facility] [id number] Univers 09:00:00 09:00:00 t; DERESKA Center ity of [address] DERESKA Physici ans 2017-06-26 2017-06-26 AppointRHIANNON Su [facility] [id number] Univers 09:00:00 09:00:00 t; [employer] gy Center it y of Seferino HOOPER s [employer] Physic i ans 2017-06-25 2017-06-25 [facility] [id number] 09:30:00 09:30:00 t [facility] 2017-06-19 2017-06-19 Appointguerita BRADFORDHUNGJARRETT RHIANNON [facility] 4 [id number] Univers 15:20:00 15:20:00 t; [facility] [facility] of Seferino HOOPER s [employer] Physic i ans 2017-06-12 2017-06-12 Appointguerita HOOPER RHIANNON [facility] 4 [id number] Univers 13:20:00 13:20:00 t; [facility] [employer] [facility] Kassidy s [employer] Physic i ans 2017-06-09 2017-06-09 [facility] UTP [id number] Univers 09:20:00 09:20:00 t; KARISSA CLE[employer]ING ity of [place], [place] KARISSA CLE[employer] Physic i ans 2016-12-19 2016-12-19 AppointRHIANNON Su UTP [id number] Univers 10:10:00 10:10:00 t; KAR[employer]SA [employer] ity of [place], [place] [employer]SA [employer] Physic i ans 2016-11-28 2016-11-28 AppointRHIANNON Su UTP [id number] Univers 10:10:00 10:10:00 t; KARISSA [employer] ity of [place], [place] BLACK, TEST PULLER Physic i ans 2016-09-12 2016-09-12 [facility] RUFUS, UTP UTP [id number] Univers 13:20:00 13:20:00 t; BLACK, TEST PULLER ity of [place], [place] BLACK, TEST PULLER Physic i ans 2015-11-30 2015-11-30 [facility] RUFUS, UTP UTP [id number] Univers 09:00:00 09:00:00 t; KARISSA [employer] ity of [place], [place] BLACK, TEST PULLER Physic i ans 2015-10-20 2015-10-20 [facility] LAVERN, UTP UTP [id number] Univers 10:10:00 10:10:00 t; Preeti CARTER [facility] Myrtle CARTER M.D. Physi ci ans 2015-09-21 2015-09-21 [facility] LAVERN, UTP UTP [id number] Univers 13:00:00 13:00:00 t; Preeti CARTER ANILYakelin Myrtle CARTER M.D. Physi ci ans 2015-08-10 2015-08-10 [facility] LAVERN, UTP UTP [id number] Univers 09:30:00 09:30:00 t; [facility] ci ans 2015-08-02 2015-08-02 [facility] ANILSUSANYakelin, UTP UTP [id number] Univers 08:30:00 08:30:00 t; Preeti CARTER [facility] Myrtle CARTER M.D. Physi ci ans 2015-07-05 2015-07-05 [facility] ANILSHARAN, [facility] UTP [id number] Univers 08:30:00 08:30:00 t; Preeti CARTER [place] NINA, M.D. Physi ci ans Results Test Description Test Time Test Comments Results Result Comments Source [[facility]] CULTURE, URINE, ROUTINE 2017-08-28 14:25:01 Test Item Value Reference Range Interpretation Comme nts ORGANISM (test code = 699-9) Escherichia coliEnterococcus Species FINAL REPORT (test code = FINAL 50,000 - 100,000 CFU/mL Escherichia coli REPORT) 10,000 - 50,000 CFU/mL EnterococcusSpecies 10,000 - 50,000 CFU/mL Skin Nina [facility][H] [id number] 14:25:01 Test Item Value Reference Range Interpretation Comments ORGANISM (test code = Enterococcus 699-9) Species Ampicillin (test code - S = Ampicillin) Levofloxacin (test - S code = Levofloxacin) Nitrofurantoin (test - S code = Nitrofurantoin) Tetracycline (test - S code = Tetracycline) Vancomycin (test code SEE NOTES S S= Latoya ceptible, = Vancomycin) R= Resistant, I= Intermediate, N/A= Not Applicable [facility][H] [id number] 14:25:01 Test Item Value Reference Range Interpretation [...] Tetracycline (test code = - S Tetracycline) [facility][O] Urine Dipstick (In Office)2017-08-27 15:29:00 Test Item Value Reference Range Interpretation Comments LEUKOCYTES (test code = LEUKOCYTES) 2+ A NITRITE; Normal (test code = 75741-2) neg N UROBILINOGEN; Normal (test code = 0.2 N 33664-1) PROTEIN; Normal (test code = 34173-9) neg N pH (test code = pH) 6.5 N URINE BLOOD; Abnormal (test code = trace A 38151-8) SPECIFIC GRAVITY; Normal (test code = 1.020 N 2965-2) KETONES; Normal (test code = 41824-0) neg N BILIRUBIN; Normal (test code = 52793-6) neg N GLUCOSE; Normal (test code = 1547-9) neg N [facility]] CULTURE, URINE, [id number] 15:37:01 Test Item Value Reference Range Interpretation Comments ORGANISM (test code = Escherichia coli 699-9) FINAL REPORT (test 50,000 - 100,000 CFU/mL code = FINAL REPORT) Escherichia coli . 50,000 - 100,000 CFU/mL Skin Nina [facility][H] [id number] 15:37:01 Test Item Value Reference Range Interpretation [...] Resi stant, I= Intermediate, N/A= Not Applicable [facility][O] Urine Dipstick (In Office)2017-08-21 12:24:00 Test Item Value Reference Range Interpretation Comments LEUKOCYTES (test code = LEUKOCYTES) 2+ A NITRITE; Normal (test code = 57186-4) NEG N UROBILINOGEN; Normal (test code = 0.2 N 96952-9) PROTEIN; Abnormal (test code = 23955-4) 30 MG A pH (test code = pH) 5.5 N URINE BLOOD; Abnormal (test code = 2+ A 86907-8) SPECIFIC GRAVITY; Normal (test code = 1.030 N 2965-2) KETONES; Normal (test code = 11564-4) NEG N BILIRUBIN; Normal (test code = 25376-6) NEG N GLUCOSE; Normal (test code = 1547-9) NEG N [facility][] Urine Dipstick (In Office)2017-06-09 10:06:00 Test Item Value Reference Range Interpretation Comments LEUKOCYTES (test code = LEUKOCYTES) 2+ A NITRITE; Normal (test code = 81197-4) NEG N UROBILINOGEN; Normal (test code = 0.2 N 07191-1) PROTEIN; Normal (test code = 13704-8) NEG N pH (test code = pH) 7.0 N URINE BLOOD; Abnormal (test code = 2+ A 42177-2) SPECIFIC GRAVITY; Normal (test code = 1.010 N 2965-2) KETONES; Normal (test code = 38652-6) NEG N BILIRUBIN; Normal (test code = NEG N 01250-9) GLUCOSE; Abnormal (test code = 1547-9) 250 MG A [facility]] BV/ VAGINITIS PANEL DNA PROBE AFFIRM 2017-06-09 09:20:01 Test Item Value Reference Range Interpretation Comments Trichomonas vaginalis DNA (test code Negative Negative = 90819-1) Gardnerella vaginalis DNA; Abnormal Positive Negative A (test code = 6410-5) Grace sp. DNA; Abnormal (test code Positive Negative A = 21167-0) [facility]] CULTURE, URINE, [id number] 09:20:01 Test Item Value Reference Range Interpretation Comments ORGANISM (test code = Escherichia coli 699-9) FINAL REPORT (test >100,000 CFU/mL code = FINAL REPORT) Escherichia coli 10,000 - 50,000 CFU/mL Skin Nina [facility][H] [id number] 09:20:01 Test Item Value Reference Range Interpretation Comments ORGANISM (test code Escherichia coli = 699-9) Ciprofloxacin (test .75 S code = Ciprofloxacin) Levofloxacin (test 1.5 S code = Levofloxacin) Trimethoprim/Sulfame 32 R thoxazole (test code = Trimethoprim/Sulfame thoxazole) Ceftriaxone (test .094 S S= Suscept ible, code = Ceftriaxone) R= Resis tant, I= Intermediate, N/A= Not Applicable [facility]
--- OUTSIDE RECORDS SUMMARY | 2019-09-30 02:03 | XMS REPORT ---
:1960 Author Organization [employer] Care Team Providers Name Role Phone TravisLisah Provider Role Unavailable Allergies, Adverse Reactions, Alerts Substance Reaction Event Type Invokana Info Not Available Drug Allergy Metformin HCl Info Not Available Drug Allergy Lyrica Info Not Available Drug Allergy Glimepiride Info Not Available Drug Allergy Problems Problem Type Condition Code Onset Dates Condition Statu s Assessment GERD without esophagitis K21.9 Act mago Assessment Motion sickness, initial encounter T75.3XXA Active Assessment Insomnia G47.00 Active Assessment Overactive bladder N32.81 Active Assessment Iron deficiency anemia due to D50.0 Active chronic blood loss Assessment Ankylosing spondylitis of multiple M45.0 Active sites in spine Assessment Bipolar disorder F31.9 Active Assessment Rheumatoid arthritis M06.9 Active Assessment Obstructive sleep apnea G47.33 Acti ve Problem Vitamin D deficiency E55.9 Active Assessment Hyperlipidemia, mixed E78.2 Active Problem Benign essential HTN I10 Active Assessment Benign essential HTN I10 Active Problem Rheumatoid arthritis M06.9 Active Problem Circadian rhythm sleep disorder, 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 Problem Ankylosing spondylitis of multiple M45.0 Active sites in spine Problem Chronic obstructive pulmonary J44.9 Active disease, unspecified COPD type Problem Primary osteoarthritis of both M17.0 Active knees Problem GERD without esophagitis K21.9 Act mago Problem Psoriatic arthritis L40.50 Active Assessment Diabetes type 2, controlled E11.9 Active Problem Hyperlipidemia, mixed E78.2 Active Problem Iron deficiency anemia due to D50.0 Active chronic blood loss Problem Obstructive sleep apnea G47.33 Acti ve Problem Overactive bladder N32.81 Active Assessment Psoriatic arthritis L40.50 Active Problem Diabetes type 2, controlled E11.9 Active Assessment Polyp of colon, unspecified part K63.5 Active of colon, unspecified type Problem Fibromyalgia M79.7 Active Problem Bipolar disorder F31.9 Active Problem Restless leg syndrome G25.81 Active Problem Insomnia G47.00 Active Problem Fatty liver K76.0 Active Problem Diabetic neuropathy E11.40 Active Problem Morbid obesity E66.01 Active Medications Medication Code Code Instructions Start End Status Dosage System Date Date ProAir HFA [facility] [id number] 108 (90 Base) Active 2 p uffs as MCG/ACT needed Inhalation every 6 hrs Iron [facility] 42587602789 325 (65 Fe) MG Active 1 tab let Orally Once a day MetFORMIN HCl ER ND 23471374132 500 MG Orally Activ e 1 tablet Once a day at night Plaquenil [facility] 65950485741 200 MG Orally Active 1 ta blet Once a day with food or milk Atorvastatin ND 11571935198 10 MG Orally Active 1 tablet Calcium Once a day Guaifenesin-Codein [facility] 29333593912 100-10 MG/5ML Act mago 10 ml as e Orally every 6 needed hrs PRN Cough Restasis [facility] 45446434757 0.05 % Active 1 drop Ophthalmic Twice into a day affected eye Hydrocodone-Acetam ND 14206177457 5-325 MG Orally Nov 10, A ctive 1 tablet inophen every 12 hrs 2017 as needed Metformin HCl ND 49491964615 1000 MG Orally Active 1 tablet Once a day with a meal in the morning Furosemide ND 51873520635 20 MG Orally June 10, Active 0.5 tablet Once a day 2018 Toujeo SoloStar [facility] 02643239139 300u/ml Active not subcutaneously defined once daily Humalog [facility] 94517831094 100 UNIT/ML Active as Subcutaneous directed Omeprazole ND 59085728644 40 MG Orally Active 1 ca psule Once a day Breo Ellipta [facility] 47882324928 200-25 MCG/INH Active 1 puff Inhalation Once a day Cyclobenzaprine [facility] 62183572072 10 MG Orally Active 1 tablet HCl Three times a as needed day Folic Acid ND 94743262517 1 MG Orally Once Active 1 tablet a day Hemocyte Plus ND 37586342688 106-1 MG Orally Active 1 capsule Once a day Savella ND 88553595389 50 MG Orally Active 2 table ts Twice a day Zestoretic [facility] 60527878052 20-12.5 MG Active 1 tabl et Orally Once a day Saphris ND 44371329518 10 MG Sublingual Active 1 t ablet Once a day under the tongue and allow to dissolve Pilocarpine HCl [facility] 14636777166 7.5 MG Orally Active 1 tablet Three times a day Abilify [facility] 81544654226 20 MG Orally Active 1 table t Once a day Trazodone HCl [facility] 62367870437 100 MG Orally Active 1 tablet Once a day at bedtime Paxil [facility] 06827888654 40 MG Orally Active 1 table t Once a day in the morning Leflunomide [facility] 78240792782 20 MG Orally Active 1 t ablet Once a day Celebrex [facility] 88642819364 200 MG Orally Active 1 cap moe Once a day with food Tolterodine [facility] 79532715873 4 MG Orally Once Active 1 capsule Tartrate ER a day Vistaril [facility] 44081505165 25 MG Orally Active 1 caps ule every 8 hrs as needed Colace [facility] 69855194287 100 MG Orally Active 1 caps ule Every other day as neede d Bydureon [facility] 24362643809 2 MG Active not Subcutaneous defined Results No Known Results Summary Purpose eClinicalWorks Submission
[2019-09-30] MEDS ORDERED: ONDANSETRON 4 MG/2 ML VIAL ONE ×2 (03:06→11:37)
[2019-09-30] MEDS ORDERED: MORPHINE 2 MG/ML SYR ONE (03:06)
[2019-09-30 03:14] LABS: Protime INR 1.08
[2019-09-30 03:16] LABS: Absolute Lymphocytes (CBC) 1.5 K/uL (0.7-4.9); Basophils % 0.5 % (0-1.3); Hematocrit 35.8 % (36.0-45.0); Lymphocytes % 17.2 % (15.3-44.8); MPV 8.7 fL (7.6-11.3)
[2019-09-30 03:25] LABS: ALT/SGPT 28 U/L (12-78); AST/SGOT 15 U/L (15-37); Albumin 3.3 g/dL (3.4-5.0); Alkaline Phosphatase 95 U/L (45-117); BUN Blood Urea Nitrogen 14 mg/dL (7-18); Bicarbonate 28 mmol/L (21-32); Bilirubin Direct 0.2 mg/dL (0-0.2); Bilirubin Total 0.7 mg/dL (0.2-1.0); Glucose Level 230 mg/dL (74-106); Magnesium 1.6 mg/dL (1.8-2.4); NT PRO-BNP 109 pg/mL (<125); Potassium 3.6 mmol/L (3.5-5.1); Protein, Total 7.6 g/dL (6.4-8.2); Sodium Level 136 mmol/L (136-145); Troponin (Emerg Dept Use Only) < 0.02 ng/mL (0.0-0.045)
--- NOTE | 2019-09-30 03:54 | EDPHYS ---
Physician Documentation [facility] Name: Bob Armstrong Age: 59 yrs Sex: Female : 1960 Arrival Date: 09/30/2019 Time: 01:59 Bed 8 Private MD: ED Physician Jevon Virgen HPI: 09/29 02:49 This 59 yrs old Female presents to ER via Wheelchair with complaints of Chest mh7 Pain. 02:49 The patient or guardian reports chest pain that is located primarily in the anterior mh7 chest wall, left. 02:50 Onset: today. The pain radiates to the left arm, left back. Associated signs and mh7 symptoms: Pertinent positives: nausea, Pertinent negatives: abdominal pain, cough, diaphoresis, dizziness, headache, lower extremity pain, lower extremity swelling, lightheadedness, near syncope, palpitations, recent travel, shortness of breath, syncope, vomiting. The chest pain is described as a pressure. Duration: The patient or guardian reports multiple episodes, that are intermittent, that wax and wane, with no pattern. Modifying factors: The symptoms are alleviated by nothing. the symptoms are aggravated by nothing. Severity of pain: At its worst the pain was moderate today, in the emergency department the pain has improved moderately. Historical: - Allergies: 02:04 Lyrica; jb4 02:04 Methylprednisolone; jb4 02:04 zpack; jb4 - Home Meds: 02:04 Abilify 30 mg Oral tab 1 tab once daily [Active]; atorvastatin 10 mg Oral tab 1 tab jb4 once daily [Active]; Bydureon 2 mg/0.65 mL subcutaneous pnij [Active]; Claritin 10 mg Oral tab 1 tab once daily [Active]; lisinopril-hydrochlorothiazide 20-12.5 mg Oral tab 1 tab once daily [Active]; metformin 500 mg Oral tab 1 tab 2 times per day [Active]; Nuvigil 250 mg Oral tab 1 tab once daily [Active]; trazodone 150 mg Oral tab [Active]; Tresiba FlexTouch U-200 200 unit/mL (3 mL) subcutaneous inpn [Active]; - PMHx: 02:04 Depression; Diabetes - NIDDM; Hyperlipidemia; Hypertension; insomnia; osteoarthritis; jb4 Rheumatoid Arthritis; - PSHx: 02:04 bladder; jb4 - Immunization history:: Adult Immunizations up to date. - Social history:: Smoking status: Patient denies any tobacco usage or history of. Patient/guardian denies using alcohol, street drugs. ROS: 02:50 Constitutional: Negative for fever, chills, and weight loss, Eyes: Negative for injury, mh7 pain, redness, and discharge, ENT: Negative for injury, pain, and discharge, Neck: Negative for injury, pain, and swelling, Respiratory: Negative for shortness of breath, cough, wheezing, and pleuritic chest pain, Back: Negative for injury and pain, : Negative for injury, bleeding, discharge, and swelling, MS/Extremity: Negative for injury and deformity, Skin: Negative for injury, rash, and discoloration, Neuro: Negative for headache, weakness, numbness, tingling, and seizure, Psych: Negative for depression, anxiety, suicide ideation, homicidal ideation, and hallucinations, Allergy/Immunology: Negative for hives, rash, and allergies, Endocrine: Negative for neck swelling, polydipsia, polyuria, polyphagia, and marked weight changes, Hematologic/Lymphatic: Negative for swollen nodes, abnormal bleeding, and unusual bruising. Exam: 02:50 Constitutional: This is a well developed, well nourished patient who is awake, alert, mh7 and in no acute distress. Head/Face: Normocephalic, atraumatic. Neck: Trachea midline, no thyromegaly or masses palpated, and no cervical lymphadenopathy. Supple, full range of motion without nuchal rigidity, or vertebral point tenderness. No Meningismus. 02:50 Cardiovascular: Regular rate and rhythm with a normal S1 and S2. No gallops, murmurs, or rubs. Normal PMI, no JVD. No pulse deficits. Respiratory: Lungs have equal breath sounds bilaterally, clear to auscultation and percussion. No rales, rhonchi or wheezes noted. No increased work of breathing, no retractions or nasal flaring. Abdomen/GI: Soft, non-tender, with normal bowel sounds. No distension or tympany. No guarding or rebound. No evidence of tenderness throughout. Back: No spinal tenderness. No costovertebral tenderness. Full range of motion. Skin: Warm, dry with normal turgor. Normal color with no rashes, no lesions, and no evidence of cellulitis. MS/ Extremity: Pulses equal, no cyanosis. Neurovascular intact. Full, normal range of motion. Neuro: Awake and alert, GCS 15, oriented to person, place, time, and situation. Cranial nerves II-XII grossly intact. Motor strength 5/5 in all extremities. Sensory grossly intact. Cerebellar exam normal. Normal gait. Psych: Awake, alert, with orientation to person, place and time. Behavior, mood, and affect are within normal limits. 02:50 Chest/axilla: Inspection: normal, Palpation: tenderness, that is mild, of the anterior aspect of left upper chest, that partially reproduces the patient's complaints, Axilla: are normal, Lymph nodes: lymphadenopathy is not appreciated. 02:50 Cardiovascular: Vital Signs: 02:04 BP 115 / 90; Pulse 95; Resp 16; Pulse Ox 95% on R/A; Weight 129.27 kg (R); Height 5 ft. jb4 11 in. (180.34 cm); Pain 5/10; 03:30 BP 101 / 60; Pulse 79; Resp 17; Temp 98.2(O); Pulse Ox 92% on R/A; jb4 04:00 BP 95 / 61; Pulse 76; Resp 17; Pulse Ox 95% on R/A; vc 02:04 Body Mass Index 39.75 (129.27 kg, 180.34 cm) jb4 MDM: 02:31 Patient medically screened. [facility] 03:51 Differential diagnosis: abnormal EKG, acute myocardial infarction, coronary artery 7 disease chest wall pain, congestive heart failure costochondritis, pericarditis, pneumonia, pneumothorax, stable angina, unstable angina. HEART Score: History: Highly Suspicious (2), ECG: Non specific repolarization disturbance / LBTB / PM (1), Age: > 45 and < 65 years (1), Risk Factors: > or = 3 Risk factors for atherosclerotic disease (2), [Hypercholesterolemia] [Hypertension] [DM] Troponin: < or = 1 x Normal Limit (0), Total Score = 6. The patient was given aspirin in the Emergency Department. Data reviewed: vital signs, nurses notes, lab test result(s), cardiac enzymes, CBC, electrolytes, urinalysis, EKG, radiologic studies, plain films. Data interpreted: Pulse oximetry: on room air is 95 %. Interpretation: normal. Counseling: I had a detailed discussion with the patient and/or guardian regarding: the historical points, exam findings, and any diagnostic results supporting the discharge/admit diagnosis, lab results, radiology results, the need for further work-up and treatment in the hospital. Response to treatment: the patient's symptoms have markedly improved after treatment. 09/29 02:25 Order name: Basic Metabolic Panel; Complete Time: 03:[address] [facility] 09/29 02:25 Order name: CBC with Diff; Complete Time: 03:[address] [facility] 09/29 02:25 Order name: LFT's; Complete Time: 03:[address] [facility] 09/29 02:25 Order name: Magnesium; Complete Time: 03:[address] [facility] 09/29 02:25 Order name: NT PRO-BNP; Complete Time: 03:[address] [facility] 09/29 02:25 Order name: PT-INR; Complete Time: 03:[address] [facility] 09/29 02:25 Order name: Troponin (emerg Dept Use Only); Complete Time: 03:[address] [facility] 09/29 02:25 Order name: XRAY Chest (1 view) [facility] 09/29 07:53 Order name: Glucose, Ancillary Testing [facility] 09/29 08:16 Order name: Troponin I [facility] 09/29 10:38 Order name: CORONAVIRUS [facility] 09/29 12:31 Order name: Glucose, Ancillary Testing [facility] 09/29 02:25 Order name: EKG; Complete Time: 02:[address] [facility] 09/29 02:25 Order name: Cardiac monitoring; Complete Time: 02:[address] [facility] 09/29 02:25 Order name: EKG - Nurse/Tech; Complete Time: 02: [facility] 09/29 02:25 Order name: IV Saline Lock; Complete Time: 02: [facility] 09/29 02:25 Order name: Labs collected and sent; Complete Time: 02: [facility] 09/29 02:25 Order name: O2 Per Protocol; Complete Time: 02: [facility] 09/29 02:25 Order name: O2 Sat Monitoring; Complete Time: 02: [facility] 09/29 04:17 Order name: CONS Physician Consult EDVA Administered Medications: 02:56 Drug: Zofran (Ondansetron) 4 mg Route: IVP; Site: right antecubital; 4 06:28 Follow up: Response: No adverse reaction vc 02:58 Drug: morphine 2 mg Route: IVP; Site: right antecubital; jb4 06:28 Follow up: Response: No adverse reaction vc Disposition: 09/30/19 03:53 Hospitalization ordered by Juan Antonio Lewis for Observation. Preliminary diagnosis is Chest pain, unspecified. - Bed requested for Telemetry/MedSurg (observation). - Status is Observation. ph - Condition is Stable. - Problem is new. - Symptoms have improved. Signatures: Dispatcher [employer] EDMS Sreedhar Castillo, CLINICAL ALLERGIST-C CLINICAL ALLERGIST-Cla1 Nay Millan, RN RN tl1 Lelia English, RN RN ph Vidal Benavides, RN RN jb4 Yamila Ramos Maurice, MD MD [facility] Nhi Moscoso RN vc Corrections: (The following items were deleted from the chart) 04:39 03:53 Hospitalization Ordered by Juan Antonio Lewis for Observation. Preliminary diagnosis tl1 is Chest pain, unspecified. Bed requested for Telemetry/MedSurg (observation). Status is Observation. Condition is Stable. Problem is new. Symptoms have improved. mh7 11:31 04:39 09/30/2019 03:53 Hospitalization Ordered by Juan Antonio Lewis for Observation. eb Preliminary diagnosis is Chest pain, unspecified. Bed requested for [facility] ER HOLD. Status is Observation. Condition is Stable. Problem is new. Symptoms have improved. tl1 13:59 11:31 09/30/2019 03:53 Hospitalization Ordered by Juan Antonio Lewis for Observation. ph Preliminary diagnosis is Chest pain, unspecified. Bed requested for Telemetry/MedSurg (observation). Status is Observation. Condition is Stable. Problem is new. Symptoms have improved. eb
--- NOTE | 2019-09-30 03:54 | ER ---
Nurse's Notes [facility] Name: Bob Armstrong Age: 59 yrs Sex: Female : 1960 Arrival Date: 09/30/2019 Time: 01:59 Bed 8 Private MD: Diagnosis: Chest pain, unspecified Presentation: 09/29 02:04 Chief complaint: Patient states: I am having chest pain that started 45 minutes ago jb4 that starts in my left chest under my breast and radiates to my left armpit and the left side of my back. 02:04 Coronavirus screen: Client denies travel out of the [place] in the last 14 days. At this jb4 time, the client does not indicate any symptoms associated with coronavirus-19. Ebola Screen: No symptoms or risks identified at this time. Initial Sepsis Screen: Does the patient meet any 2 criteria? HR > 90 bpm. Yes Does the patient have a suspected source of infection? No. Patient's initial sepsis screen is negative. Risk Assessment: Do you want to hurt yourself or someone else? Patient reports no desire to harm self or others. Onset of symptoms was September 30, 2019. Transition of care: patient was not received from another setting of care. 02:04 Method Of Arrival: Wheelchair jb4 02:04 Acuity: JERRY 3 jb4 Historical: - Allergies: 02:04 Lyrica; jb4 02:04 Methylprednisolone; jb4 02:04 zpack; jb4 - Home Meds: 02:04 Abilify 30 mg Oral tab 1 tab once daily [Active]; atorvastatin 10 mg Oral tab 1 tab jb4 once daily [Active]; Bydureon 2 mg/0.65 mL subcutaneous pnij [Active]; Claritin 10 mg Oral tab 1 tab once daily [Active]; lisinopril-hydrochlorothiazide 20-12.5 mg Oral tab 1 tab once daily [Active]; metformin 500 mg Oral tab 1 tab 2 times per day [Active]; Nuvigil 250 mg Oral tab 1 tab once daily [Active]; trazodone 150 mg Oral tab [Active]; Tresiba FlexTouch U-200 200 unit/mL (3 mL) subcutaneous inpn [Active]; - PMHx: 02:04 Depression; Diabetes - NIDDM; Hyperlipidemia; Hypertension; insomnia; osteoarthritis; jb4 Rheumatoid Arthritis; - PSHx: 02:04 bladder; jb4 - Immunization history:: Adult Immunizations up to date. - Social history:: Smoking status: Patient denies any tobacco usage or history of. Patient/guardian denies using alcohol, street drugs. Screenin:04 Abuse screen: Denies threats or abuse. Nutritional screening: No deficits noted. jb4 Tuberculosis screening: No symptoms or risk factors identified. Fall Risk None identified. Assessment: 02:04 General: Appears in no apparent distress. comfortable, Behavior is calm, cooperative, jb4 appropriate for age. Pain: Complains of pain in left breast Pain does not radiate. Pain radiates to left scapular area and left axilla Pain currently is 5 out of 10 on a pain scale. Quality of pain is described as pressure, Pain began 45 minutes JIG BORER. Neuro: Level of Consciousness is awake, alert, obeys commands, Oriented to person, place, time, situation. Cardiovascular: Patient's skin is warm and dry. Rhythm is sinus rhythm. Respiratory: Airway is patent Respiratory effort is even, unlabored, Respiratory pattern is regular, symmetrical. GI: No signs and/or symptoms were reported involving the gastrointestinal system. : No signs and/or symptoms were reported regarding the genitourinary system. EENT: No signs and/or symptoms were reported regarding the EENT system. Derm: Skin is intact, Skin is pink, warm \T\ dry. Musculoskeletal: Circulation, motion, and sensation intact. Range of motion: intact in all extremities. 03:45 Reassessment: Patient appears in no apparent distress at this time. Patient and/or jb4 family updated on plan of care and expected duration. Pain level reassessed. Patient is alert, oriented x 3, equal unlabored respirations, skin warm/dry/pink. 04:40 Reassessment: Patient appears in no apparent distress at this time. Patient and/or jb4 family updated on plan of care and expected duration. Pain level reassessed. Patient is alert, oriented x 3, equal unlabored respirations, skin warm/dry/pink. 05:33 Reassessment: See [facility] for further charting. vc Vital Signs: 02:04 BP 115 / 90; Pulse 95; Resp 16; Pulse Ox 95% on R/A; Weight 129.27 kg (R); Height 5 ft. jb4 11 in. (180.34 cm); Pain 5/10; 03:30 BP 101 / 60; Pulse 79; Resp 17; Temp 98.2(O); Pulse Ox 92% on R/A; jb4 04:00 BP 95 / 61; Pulse 76; Resp 17; Pulse Ox 95% on R/A; vc 02:04 Body Mass Index 39.75 (129.27 kg, 180.34 cm) jb4 ED Course: 01:59 Patient arrived in ED. cl3 02:04 Arm band placed on. EKG completed in triage. Results shown to MD. jb4 02:04 Patient has correct armband on for positive identification. Bed in low position. Call jb4 light in reach. Side rails up X 1. gambling monitor on. Pulse ox on. NIBP on. 02:04 Patient maintains SpO2 saturation greater than 95% on room air. jb4 02:09 Jevon Virgen MD is Attending Physician. mh7 02:17 Vidal Benavides, RN is Primary Nurse. jb4 02:19 Triage completed. jb4 02:53 XRAY Chest (1 view) In Process Unspecified. EDMS 03:03 Inserted saline lock: 20 gauge in right antecubital area, using aseptic technique. jb5 Blood collected. 03:04 Basic Metabolic Panel Sent. jb5 03:04 LFT's Sent. jb5 03:04 NT PRO-BNP Sent. jb5 03:04 CBC with Diff Sent. jb5 03:04 Magnesium Sent. jb5 03:04 PT-INR Sent. jb5 03:04 Troponin (emerg Dept Use Only) Sent. jb5 03:53 Juan Antonio Lewis is Hospitalizing Provider. 7 05:33 No provider procedures requiring assistance completed. Patient admitted, IV remains in vc place. Administered Medications: 02:56 Drug: Zofran (Ondansetron) 4 mg Route: IVP; Site: right antecubital; jb4 06:28 Follow up: Response: No adverse reaction vc 02:58 Drug: morphine 2 mg Route: IVP; Site: right antecubital; jb4 06:28 Follow up: Response: No adverse reaction vc Outcome: 03:53 Decision to Hospitalize by Provider. mh7 05:33 Admitted to ER Hold. Please see [facility] for further documentation. vc 05:33 Condition: good 05:33 Instructed on the need for admit. 13:59 Patient left the ED. ph Signatures: Dispatcher [employer] EDLelia Lemus RN RN ph Bryson, James, RN RN jb4 Ashleigh Aguirre jb5 Enrique Gil cl3 Nhi Moscoso RN RN vc Holmes, Maurice, MD MD mh7 Corrections: (The following items were deleted from the chart) 04:41 03:30 BP 101 / 60; Pulse 79bpm; Resp 17bpm; Pulse Ox 92% RA; jb4 jb4
--- NOTE | 2019-09-30 04:26 | P.HP ---
Certification for Inpatient Patient admitted to: Observation With expected LOS: <2 Midnights Patient will require the following post-hospital care: None Practitioner: I am a practitioner with admitting privileges, knowledge of patient current condition, hospital course, and medical plan of care. Services: Services provided to patient in accordance with Admission requirements found in Title 42 Section 412.3 of the Code of Federal Regulations Patient History Date of Service: 09/30/19 Primary Care Provider: Thaddeus Reason for admission: Chest pain History of Present Illness: 59-year-old female with history of diabetes mellitus type 2, hyperlipidemia, hypertension, psoriatic arthritis presents emergency department for chest pain. Patient reports that the chest pain began while she is resting in bed and was pressure-like in nature, nonradiating. Patient reports that she has never had pain like this before and that she did have some diaphoresis as well. Patient reports at the time. Pain was about a 5/10 is currently gone down to about a 2/10. Patient reports she had a stress test approximately 3-4 years ago, has never had a heart catheterization, is unaware if she has ever had an echocardiogram. 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 Initial troponin is negative, chest x-ray unremarkable. No acute change on EKG. ED provider wishes to admit patient for further evaluation and management. When I saw the patient in the emergency department she is awake, alert, oriented x4, in no distress. Patient reports still having mild chest pressure 210. Patient denies similar symptoms in the past. Patient be admitted for further evaluation and management. Allergies methylprednisolone Adverse Reaction (Verified 12/09/15 23:06) Nausea/Vomiting pregabalin [From Lyrica] Adverse Reaction (Verified 12/09/15 23:06) Itching/Hives/Rash Home Medications: Alprazolam [Alprazolam Odt] 0.5 mg PO BIDP PRN 12/09/15 Aripiprazole [Abilify] 20 mg PO BEDTIME 12/09/15 Aspirin [Aspirin EC 81 MG] 81 mg PO DAILY 12/09/15 Bromfenac Sodium 1 gtt OPTH DAILY 12/09/15 Celecoxib 200 mg PO BID 12/09/15 Clopidogrel Bisulfate [Clopidogrel] 75 mg PO DAILY 12/09/15 Cyclobenzaprine [Flexeril*] 10 mg PO TID 12/09/15 Cyclosporine [Restasis] 1 gtt OPTH BID 12/09/15 Dexlansoprazole [Dexilant] 60 mg PO DAILY 12/09/15 Exenatide Microspheres [Bydureon Pen] 2 mg SQ Q7D 12/09/15 Folic Acid 2 mg PO DAILY 12/09/15 Golimumab [Simponi Aria] 50 mg IV Q60D 12/09/15 Hydroxychloroquine [Plaquenil*] 200 mg PO BID 12/09/15 Insulin Degludec [Tresiba Flextouch U-200] 120 unit SQ DAILY 12/09/15 Levomefolate/Algal Oil [Deplin-Algal Oil 15 mg Capsule] 1 cap PO DAILY 12/09/15 Lisinopril/Hydrochlorothiazide [Lisinopril-Hctz 20-12.5 mg Tab] 2 tab PO DAILY 12/09/15 Methotrexate Sodium/Pf [Methotrexate 250 mg/10 ml Vial] 0.7 ml SQ Q7D 12/09/15 Milnacipran HCl [Savella] 50 mg PO BEDTIME 12/09/15 Pilocarpine HCl 7.5 mg PO TID 12/09/15 Simvastatin 40 mg PO BEDTIME 12/09/15 Solifenacin Succinate [Vesicare] 10 mg PO DAILY 12/09/15 Suvorexant [Belsomra] 20 mg PO BEDTIME 12/09/15 armodafiniL [Nuvigil] 250 mg PO DAILY 12/09/15 Azithromycin Tab [Zithromax*] 250 mg PO DAILY #4 tab 12/10/15 Benzonatate [Tessalon Perle] 200 mg PO TID PRN #20 cap 12/10/15 Loratadine 10 mg PO DAILY #15 tablet 12/10/15 - Past Medical/Surgical History Diabetic: Yes -: hypertension -: hyperlipidemia -: Diabetes mellitus type 2 -: depression -: rheumatoid arthritis -: Psoriatic arthritis -: insmonia -: chronic pain -: gerd -: anxiety -: stem cell therapy on ankle -: tendon in left leg repair -: uretheral surg -: right arm surg -: tonsillectomy -: tubal ligation Psychosocial/ Personal History: Patient lives at home alone. - Family History Family History: Reviewed- Non-Contributory - Social History Smoking Status: Never smoker Alcohol use: No CD- Drugs: No Caffeine use: Yes Place of Residence: Home Review of Systems 10-point ROS is otherwise unremarkable Cardiovascular: Chest Pain Physical Examination - Physical Exam General: Alert, In no apparent distress HEENT: Atraumatic, PERRLA, Mucous membr. moist/pink, EOMI, Sclerae nonicteric Neck: Supple, 2+ carotid pulse no bruit, No LAD, Without JVD or thyroid abnormality Respiratory: Clear to auscultation bilaterally, Normal air movement Cardiovascular: Regular rate/rhythm, Normal S1 S2 Gastrointestinal: Normal bowel sounds, No tenderness Musculoskeletal: No tenderness Integumentary: No rashes Neurological: Normal gait, Normal speech, Normal strength at 5/5 x4 extr, Normal tone, Normal affect Lymphatics: No axilla or inguinal lymphadenopathy - Studies Laboratory Data (last 24 hrs) 09/30/19 02:28: PT 12.7 H, INR 1.08 09/30/19 02:28: WBC 8.8, Hgb 12.0, Hct 35.8 L, Plt Count 137 L 09/30/19 02:28: Sodium 136, Potassium 3.6, BUN 14, Creatinine 0.95, Glucose 230 H, Magnesium 1.6 L, Total Bilirubin 0.7, AST 15, ALT 28, Alkaline Phosphatase 95 Assessment and Plan - Plan Assessment Chest pain rule out ACS Diabetes mellitus type 2 on insulin therapy Hypertension Hyperlipidemia Psoriatic arthritis Plan Chest pain rule out ACS: Will trend troponins. Cardiology consult in place. Patient remain on telemetry throughout this hospitalization. Continue with aspirin and beta-megan therapy. Lovenox 40 mg subcutaneous for DVT prophyla xis. Appreciate further input from cardiology. Diabetes mellitus type 2 on insulin therapy: Aggressive sliding scale insulin therapy in place. A.c. HS Accu-Cheks. Will continue home medications as appropriate. Hypertension: Initiated beta-megan therapy. Will obtain and continue patient's home medications. Hyperlipidemia: obtain and continue patient's home medications. Psoriatic arthritis: obtain and continue patient's home medications. Discharge Plan: Home Plan to discharge in: 24 Hours - Advance Directives Does patient have a Living Will: No Does patient have a Durable POA for Healthcare: No - Code Status/Comfort Care Code Status Assessed: Yes (Patient is full code) Critical Care: No Time Spent Managing Pts Care (In Minutes): 55
[2019-09-30] MEDS ORDERED: ACETAMINOPHEN 500 MG TAB PO PRN (05:35)
[2019-09-30] MEDS ORDERED: ONDANSETRON 4 MG/2 ML VIAL IV PRN (05:35)
[2019-09-30] MEDS ORDERED: METOPROLOL TAR 25 MG TAB PO SCH (06:00)
[2019-09-30 06:23] VITALS: BMI 39.7
[2019-09-30] MEDS: INSULIN -REGULAR HUMAN 50 UNIT/0.5 ML ML SQ SCH ×2 (07:30→11:30)
--- NOTE | 2019-09-30 08:39 | EKG ---
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
--- NOTE | 2019-09-30 08:59 | RAD REPORT ---
EXAM DESCRIPTION: RAD - Chest Single View - 09/30/2019 2:53 am CLINICAL HISTORY: CHEST PAIN Chest pain. COMPARISON: Chest Single View dated 08/03/2019; Chest Single View dated 03/22/2018; Chest Single View dated 03/14/2018; Chest Single View dated 03/09/2018 FINDINGS: Portable technique limits examination quality. The lungs are grossly clear. The heart is mildly prominent in size. No displaced fractures. IMPRESSION: No acute intrathoracic process suspected.
[2019-09-30] MEDS ORDERED: ASPIRIN EC 81 MG TAB PO SCH (09:00)
[2019-09-30] MEDS ORDERED: ASPIRIN EC 81 MG TAB PO ONE (09:10)
[2019-09-30] MEDS ORDERED: ENOXAPARIN 40 MG/0.4 ML SQ ONE (09:10)
[2019-09-30] MEDS ORDERED: ENOXAPARIN 40 MG/0.4 ML SQ SCH (12:00)
[2019-09-30] MEDS ORDERED: INSULIN -REGULAR HUMAN 50 UNIT/0.5 ML ML ONE (12:42)
[2019-09-30 14:17] VITALS: O2SAT 95
[2019-09-30] MEDS ORDERED: POTASSIUM CL SA 10 MEQ TAB PO ONE (16:00)
[2019-09-30] MEDS ORDERED: MAGNESIUM SULFATE 1 gm IVPB 1 GM/100 ML BAG IV ONE (16:00)
[2019-09-30 16:15] VITALS: BP 115/55; TEMP 97.4
--- NOTE | 2019-09-30 16:33 | P.DS ---
Admission Date: 09/30/19 Discharge Date: 09/30/19 Primary Care Provider: Thaddeus Disposition: ROUTINE DISCHARGE Discharge Condition: FAIR Reason for Admission: Chest pain Consultations: Cardiology-Dr. Hargrove Brief History of Present Illness: 59-year-old morbidly obese woman with a history of type 2 diabetes, hypertension, rheumatoid arthritis presents to the emergency department with a complaint of chest pain. 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 Her initial troponin is negative. Chest x-ray did not show any acute disease. EKG unremarkable with no ischemic changes. Patient was placed under observation for ACS rule out. Hospital Course: Patient placed under observation on the medical floor. Initial troponin trended came back negative. Patient was asymptomatic during the hospital stay. He was seen and evaluated by cardiology-Dr. Hargrove who recommended no further intervention. Patient deemed clinically stable for discharge by cardiology. She is discharged to full her parking meter servicer at [place]. No changes made in her home medications. Patient given a prescription for aspirin and lipitor. Her COVID 19 test is pending to be followed. Vital Signs/Physical Exam: Temp Pulse Resp BP Pulse Ox 97.4 F 82 16 115/55 L 96 09/30/19 16:00 09/30/19 16:00 09/30/19 16:00 09/30/19 16:00 09/30/19 16:00 General: Alert, In no apparent distress, Obese Laboratory Data at Discharge: WBC 8.8 K/uL (4.3-10.9) 09/30/19 02:28 Hgb 12.0 g/dL (12.0-15.0) 09/30/19 02:28 Hct 35.8 % (36.0-45.0) L 09/30/19 02:28 Plt Count 137 K/uL (152-406) L 09/30/19 02:28 PT 12.7 SECONDS (9.5-12.5) H 09/30/19 02:28 INR 1.08 09/30/19 02:28 Sodium 136 mmol/L (136-145) 09/30/19 02:28 Potassium 3.6 mmol/L (3.5-5.1) 09/30/19 02:28 BUN 14 mg/dL (7-18) 09/30/19 02:28 Creatinine 0.95 mg/dL (0.55-1.3) 09/30/19 02:28 Glucose 230 mg/dL (74-106) H 09/30/19 02:28 Magnesium 1.6 mg/dL (1.8-2.4) L 09/30/19 02:28 Total Bilirubin 0.7 mg/dL (0.2-1.0) 09/30/19 02:28 AST 15 U/L (15-37) 09/30/19 02:28 ALT 28 U/L (12-78) 09/30/19 02:28 Alkaline Phosphatase 95 U/L (45-117) 09/30/19 02:28 Troponin I < 0.02 ng/mL (0.0-0.045) 09/30/19 14:34 Home Medications: Aspirin [Aspirin EC 81 MG] 81 mg PO DAILY #30 tablet. 09/30/19 Atorvastatin Calcium [Lipitor] 10 mg PO BEDTIME #30 tab 09/30/19 New Medications: Aspirin [Aspirin EC 81 MG] 81 mg PO DAILY #30 tablet. Atorvastatin Calcium [Lipitor] 10 mg PO BEDTIME #30 tab Diet: ADA Activity: Ad miky
[2019-09-30] MEDS ORDERED: ATORVASTATIN 40 MG TAB PO SCH (21:00)
--- NOTE | 2019-10-02 22:44 | CON ---
Date of Consultation: 09/30/2019 Reason For Consultation: Chest pain. History Of Present Illness: Ms. Armstrong is a 59-year-old white woman. She sees Dr. Villareal. Has had a recent negative cardiac workup. She came in with fleeting chest pain that is mid epigastric to le ft lateral chest wall underneath her left breast. It was sharp occasionally and occasionally pressur e, was nonradiating, not associated with nausea, vomiting, diaphoresis. It was nonexertional. She h ad already ruled out for an IL with a normal CPK, MB, troponin, BNP, EKG and x-ray. Past Medical History: Include diabetes, obesity, rheumatoid arthritis, hypertension, depression, and dyslipidemia. Allergies: STEROID AND NEURONTIN. Review of Systems: Negative. Social History: Negative. Family History: Noncontributory. Medications: At home include Xanax, Abilify, aspirin, Plavix, Plaquenil, Zocor, and lisinopril with hydrochlorothiazide. Physical Examination: General: She is obese, otherwise. Vital signs: Stable and afebrile. She continued to have some sharp chest pain. She was in sinus rh ythm and she was afebrile. HEENT: Negative. Neck: Supple. No bruit. Chest: Clear. Cardiac: Reveals regular rhythm and rate. No murmurs, gallops, or rubs. Abdomen: Obese, but benign. Extremities: Revealed no clubbing, cyanosis, or edema. Diagnostic Data: All normal except for elevated glucose of 216. Impression And Plan: 1.Atypical chest pain, most likely pleuritic. Negative recent cardiac workup by Dr. Villareal. The p atient has ruled out for myocardial infarction. She has a normal EKG, normal enzyme, and normal ches t x-ray. I am comfortable with her going home. Follow up with Dr. Villareal in the near future. 2.Her other problems including diabetes which seems to be poorly controlled. 3.Diabetes. 4.Rheumatoid arthritis for which she takes Plaquenil. 5.Hypertension, well controlled. 6.Dyslipidemia, controlled. She is on Zocor. 7.Anxiety and depression, on Xanax and Abilify. NB/MODL Voice ID: [id number] Report ID: [id number]
== END 2019-09-30 17:43 | disposition home or self-care (01) | DRG 313 ==
LOC: ER 01:59 → ERHOLD 04:19 → OBSVTOIN 07:46 → 2ND 13:49
PROVIDERS: ADMIT Internal Medicine; ATTEND Internal Medicine
DX: R07.89 Other chest pain (principal); E11.65 Type 2 diabetes mellitus with hyperglycemia; M06.9 Rheumatoid arthritis, unspecified; I10 Essential (primary) hypertension; E78.5 Hyperlipidemia, unspecified; E66.9 Obesity, unspecified; Z68.39 Body mass index [BMI] 39.0-39.9, adult; Z79.02 Long term (current) use of antithrombotics/antiplatelets; Z79.82 Long term (current) use of aspirin; Z11.59 Encounter for screening for other viral diseases
CPT/HCPCS: 36415; 71045; 80048; 80076; 82947; 83735; 83880; 84484; 85025; 85610; 93005; 96374; 96375; 99285; G0378; J1650; J2270; J2405; J3475; U0002

== ENCOUNTER 2019-11-21 17:21 | Emergency (ER) | payer OTHER ==
--- OUTSIDE RECORDS SUMMARY | 2019-11-21 17:23 | XMS REPORT | Clinical Summary ---
:1960 Author Organization [employer] Address [address] [place] [address] Care Team Providers Name Role Phone Asked, [...] daily. capsule Active Problems Not on file Surgical History Surgery Date Site/Laterality Comments CARDIAC CATHETERIZATION 12/20/2015 N/A Procedur e: Cv angiogram cerebral unilateral; Michelle geon: Saqib Wheeler MD; Locat ion: [facility] Work[facility] Invasive Locatio n; Service: Cardiovascular; Laterality: N/A; CARDIAC CATHETERIZATION 12/20/2015 N/A Procedur e: Cv arteriogram carotid single; Surgeon : Saqib Wheeler MD; Location: [facility] Work[facility] Invasive Locatio n; Service: Cardiovascular; Laterality: N/A; Medical History Medical History Date Comments Carotid artery occlusion Diabetes mellitus (HCC) Hyperlipidemia Hypertension Family History Medical History Relation Name Comments Stroke Father Lung cancer Mother Relation Name Status Comments Father Mother Social History Tobacco Use Types Packs/Day Years Used Date Never Smoker Tobacco Cessation: Counseling Given: No Alcohol Use Drinks/Week oz/Week Comments No Sex Assigned at Date Recorded Not on file Last Filed Vital Signs Not on file Plan of Treatment Not on file Results Not on fileafter 11/20/2018 Insurance Payer Benefit Plan / Subscriber ID Effective Dates Phone Addre ss Type Group BCBS BCBS CHOICE [id number] 2013-Present PPO PPO/[employer] EMPL PPO CVCP CVCP BCBS [id number] 2013-Present [address] [place] [address] Advance Directives For more information, please contact: [phone] Type Date Recorded 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
--- OUTSIDE RECORDS SUMMARY | 2019-11-21 17:25 | XMS REPORT ---
:1960 Author Organization [employer] Care Team Providers Name Role Phone TravisLisah Provider Role Unavailable Allergies, Adverse Reactions, Alerts Substance Reaction Event Type Invokana Info Not Available Drug Allergy Invokana Info Not Available Drug Allergy Metformin HCl Info Not Available Drug Allergy Metformin HCl Info Not Available Drug Allergy Lyrica Info Not Available Drug Allergy Lyrica Info Not Available Drug Allergy Glimepiride Info Not Available Drug Allergy Glimepiride Info Not Available Drug Allergy Problems Problem Type Condition Code Onset Dates Condition Statu s Problem Rheumatoid arthritis M06.9 Active Problem Circadian rhythm sleep disorder, 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 Problem Ankylosing spondylitis of multiple M45.0 Active sites in spine Problem Chronic obstructive pulmonary J44.9 Active disease, unspecified COPD type Problem GERD without esophagitis K21.9 Act mago Problem Primary osteoarthritis of both knees M17.0 Active Assessment Right ear pain H92.01 Active Problem Psoriatic arthritis L40.50 Active Problem Hyperlipidemia, mixed E78.2 Active Problem Iron deficiency anemia due to D50.0 Active chronic blood loss Problem Obstructive sleep apnea G47.33 Acti ve Problem Overactive bladder N32.81 Active Problem Diabetes type 2, controlled E11.9 Active Problem Fibromyalgia M79.7 Active Problem Bipolar disorder F31.9 Active Problem Restless leg syndrome G25.81 Active Problem Insomnia G47.00 Active Problem Fatty liver K76.0 Active Problem Diabetic neuropathy E11.40 Active Problem Vitamin D deficiency E55.9 Active Assessment Upper respiratory tract infection, J06.9 Active unspecified type Problem Morbid obesity E66.01 Active Problem Benign essential HTN I10 Active Medications Medication Code Code Instructions Start End Status Dosage System Date Date Breo Ellipta [facility] [id number] 200-25 MCG/INH Active 1 puff Inhalation Once a day Metformin HCl ND 52321582577 1000 MG Orally Active 1 tablet Once a day with a meal in the morning Atorvastatin ND 17775140536 10 MG Orally Active 1 tablet Calcium Once a day Restasis [facility] 92171698671 0.05 % Active 1 drop Ophthalmic Twice into a day affected eye Cyclobenzaprine ND 31191324356 10 MG Orally Active 1 tablet HCl Three times a as needed day Hemocyte Plus [facility] 13018476736 106-1 MG Orally Active 1 capsule Once a day Plaquenil ND 00196373897 200 MG Orally Active 1 ta blet Once a day with food or milk Paxil [facility] 50367769203 40 MG Orally Active 1 table t Once a day in the morning Zestoretic [facility] 11886698720 20-12.5 MG Active 1 tabl et Orally Once a day Colace ND 08991871032 100 MG Orally Active 1 caps ule Every other day as neede d Savella [facility] 95022480998 50 MG Orally Active 2 table ts Twice a day Abilify [facility] 79659265642 20 MG Orally Active 1 table t Once a day Folic Acid ND 50144206203 1 MG Orally Once Active 1 tablet a day Trazodone HCl [facility] 98263094838 100 MG Orally Active 1 tablet Once a day at bedtime Tolterodine [facility] 81711853769 4 MG Orally Once Active 1 capsule Tartrate ER a day Saphris ND 27004103629 10 MG Sublingual Active 1 t ablet Once a day under the tongue and allow to dissolve MetFORMIN HCl ER ND 71320938027 500 MG Orally Activ e 1 tablet Once a day at night Bydureon [facility] 72376657793 2 MG Active not Subcutaneous defined Vistaril ND 14760485164 25 MG Orally Active 1 caps ule every 8 hrs as needed Iron [facility] 44892818631 325 (65 Fe) MG Active 1 tab let Orally Once a day Guaifenesin-Codein [facility] 19153972630 100-10 MG/5ML Act mago 10 ml as e Orally every 6 needed hrs PRN Cough Omeprazole ND 62818737011 40 MG Orally Active 1 ca psule Once a day Humalog [facility] 37951878761 100 UNIT/ML Active as Subcutaneous directed Hydrocodone-Acetam ND 54623280086 5-325 MG Orally Nov 10 ctive 1 tablet inophen every 12 hrs 2017 as needed Leflunomide [facility] 54480261437 20 MG Orally Active 1 t ablet Once a day Furosemide ND 19655605125 20 MG Orally June 10, Active 0.5 tablet Once a day 2018 Toumatthias BetancuroStar [facility] 23466113319 300u/ml Active not subcutaneously defined once daily Celebrex ND 14342545495 200 MG Orally Active 1 cap moe Once a day with food ProAir HFA [facility] 99822060059 108 (90 Base) Active 2 p uffs as MCG/ACT needed Inhalation every 6 hrs Amoxicillin [facility] 81267207357 500 MG Orally Sept Sept Active 1 capsule every 12 hrs , , 2019 2019 Pilocarpine HCl [facility] 68670985176 7.5 MG Orally Active 1 tablet Three times a day Results No Known Results Summary Purpose eClinicalWorks Submission
--- OUTSIDE RECORDS SUMMARY | 2019-11-21 17:25 | XMS REPORT ---
[...] Code Onset Dates Condition Statu s Assessment Overactive bladder N32.81 Active Assessment GERD without esophagitis K21.9 Act mago Assessment Iron deficiency anemia due to D50.0 Active chronic blood loss Assessment Insomnia G47.00 Active Assessment Ankylosing spondylitis of multiple M45.0 Active sites in spine Assessment Bipolar disorder F31.9 Active Assessment Rheumatoid arthritis M06.9 Active Assessment Obstructive sleep apnea G47.33 Acti ve Assessment Hyperlipidemia, mixed E78.2 Active Problem Vitamin D deficiency E55.9 Active Assessment Benign essential HTN I10 Active Problem Benign essential HTN I10 Active Assessment Diabetes type 2, controlled E11.9 Active Problem Rheumatoid arthritis M06.9 Active Problem Circadian rhythm sleep disorder, 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 Problem Ankylosing spondylitis of multiple M45.0 Active sites in spine Problem Chronic obstructive pulmonary J44.9 Active disease, unspecified COPD type Problem Primary osteoarthritis of both M17.0 Active knees Problem GERD without esophagitis K21.9 Act mago Problem Psoriatic arthritis L40.50 Active Assessment Atypical chest pain R07.89 Active Problem Hyperlipidemia, mixed E78.2 Active Problem Iron deficiency anemia due to D50.0 Active chronic blood loss Problem Obstructive sleep apnea G47.33 Acti ve Problem Overactive bladder N32.81 Active Assessment Polyp of colon, unspecified part K63.5 Active of colon, unspecified type Problem Diabetes type 2, controlled E11.9 Active Assessment Motion sickness, initial encounter T75.3XXA Active Problem Fibromyalgia M79.7 Active Problem Bipolar disorder F31.9 Active Assessment Psoriatic arthritis L40.50 Active Problem Restless leg syndrome G25.81 Active Problem Insomnia G47.00 Active Problem Fatty liver K76.0 Active Problem Diabetic neuropathy E11.40 Active Problem Morbid obesity E66.01 Active Medications Medication Code Code Instructions Start End Status Dosage System Date Date Leflunomide [facility] 57711436917 20 MG Orally Active 1 t ablet Once a day Trazodone HCl [facility] 90946359777 100 MG Orally Active 1 tablet Once a day at bedtime Folic Acid [facility] 38086983573 1 MG Orally Once Active 1 tablet a day Iron [facility] 98858288618 325 (65 Fe) MG Active 1 tab let Orally Once a day Paxil ND 96723331006 40 MG Orally Active 1 table t Once a day in the morning Hydrocodone-Acetam [facility] 03305406447 5-325 MG Orally Nov 10, A ctive 1 tablet inophen every 12 hrs 2017 as needed ProAir HFA [facility] 39295435051 108 (90 Base) Active 2 p uffs as MCG/ACT needed Inhalation every 6 hrs Vistaril [facility] 55898524577 25 MG Orally Active 1 caps ule every 8 hrs as needed Plaquenil [facility] 70226223104 200 MG Orally Active 1 ta blet Once a day with food or milk Toujeo SoloStar [facility] 17262388687 300u/ml Active not subcutaneously defined once daily Guaifenesin-Codein [facility] 41953477698 100-10 MG/5ML Act mago 10 ml as e Orally every 6 needed hrs PRN Cough Breo Ellipta [facility] 82108466873 200-25 MCG/INH Active 1 puff Inhalation Once a day Metformin HCl [facility] 66083393114 1000 MG Orally Active 1 tablet Once a day with a meal in the morning Abilify [facility] 82478904633 20 MG Orally Active 1 table t Once a day Cyclobenzaprine ND 72848812966 10 MG Orally Active 1 tablet HCl Three times a as needed day Bydureon [facility] 27445412138 2 MG Active not Subcutaneous defined Tolterodine [facility] 35401706923 4 MG Orally Once Active 1 capsule Tartrate ER a day Celebrex ND 71646929013 200 MG Orally Active 1 cap moe Once a day with food MetFORMIN HCl ER [facility] 24832987195 500 MG Orally Activ e 1 tablet Once a day at night Pilocarpine HCl [facility] 32495352930 7.5 MG Orally Active 1 tablet Three times a day Hemocyte Plus [facility] 96485421897 106-1 MG Orally Active 1 capsule Once a day Furosemide [facility] 68517697075 20 MG Orally June 10, Active 0.5 tablet Once a day 2018 Omeprazole [facility] 67300432232 40 MG Orally Active 1 ca psule Once a day Colace [facility] 86699773670 100 MG Orally Active 1 caps ule Every other day as neede d Humalog [facility] 21137507628 100 UNIT/ML Active as Subcutaneous directed Savella [facility] 29539943930 50 MG Orally Active 2 table ts Twice a day Saphris [facility] 18086053127 10 MG Sublingual Active 1 t ablet Once a day under the tongue and allow to dissolve Atorvastatin [facility] 43217030863 10 MG Orally Active 1 tablet Calcium Once a day Zestoretic [facility] 32620911479 20-12.5 MG Active 1 tabl et Orally Once a day Restasis [facility] 55309000491 0.05 % Active 1 drop Ophthalmic Twice into a day affected eye Results No Known Results Summary Purpose eClinicalWorks Submission
--- OUTSIDE RECORDS SUMMARY | 2019-11-21 17:25 | XMS REPORT ---
:1960 [facility] Team Providers Name Role Phone TravisLisah [...] Status Dosage System Date Date ProAir HFA [facility] [id number] 108 (90 Base) Active 2 p uffs as MCG/ACT needed Inhalation every 6 hrs Iron [facility] 74449222201 325 (65 Fe) MG Active 1 tab let Orally Once a day MetFORMIN HCl ER ND 97315175107 500 MG Orally Activ e 1 tablet Once a day at night Plaquenil [facility] 19203227322 200 MG Orally Active 1 ta blet Once a day with food or milk Atorvastatin ND 15782633235 10 MG Orally Active 1 tablet Calcium Once a day Guaifenesin-Codein [facility] 51090800122 100-10 MG/5ML Act mago 10 ml as e Orally every 6 needed hrs PRN Cough Restasis [facility] 51822548865 0.05 % Active 1 drop Ophthalmic Twice into a day affected eye Hydrocodone-Acetam ND 31417945756 5-325 MG Orally Nov 10, A ctive 1 tablet inophen every 12 hrs 2017 as needed Metformin HCl ND 85392170672 1000 MG Orally Active 1 tablet Once a day with a meal in the morning Furosemide ND 05409249222 20 MG Orally June 10, Active 0.5 tablet Once a day 2018 Toujeo SoloStar [facility] 57869224953 300u/ml Active not subcutaneously defined once daily Humalog [facility] 68738071647 100 UNIT/ML Active as Subcutaneous directed Omeprazole ND 85719495472 40 MG Orally Active 1 ca psule Once a day Breo Ellipta [facility] 20586077482 200-25 MCG/INH Active 1 puff Inhalation Once a day Cyclobenzaprine [facility] 78419492201 10 MG Orally Active 1 tablet HCl Three times a as needed day Folic Acid ND 97437007278 1 MG Orally Once Active 1 tablet a day Hemocyte Plus ND 95200673150 106-1 MG Orally Active 1 capsule Once a day Savella ND 59286492611 50 MG Orally Active 2 table ts Twice a day Zestoretic [facility] 61231264318 20-12.5 MG Active 1 tabl et Orally Once a day Saphris ND 11065418456 10 MG Sublingual Active 1 t ablet Once a day under the tongue and allow to dissolve Pilocarpine HCl [facility] 25312122867 7.5 MG Orally Active 1 tablet Three times a day Abilify [facility] 62365344874 20 MG Orally Active 1 table t Once a day Trazodone HCl [facility] 59926641554 100 MG Orally Active 1 tablet Once a day at bedtime Paxil [facility] 03123434857 40 MG Orally Active 1 table t Once a day in the morning Leflunomide [facility] 78328284130 20 MG Orally Active 1 t ablet Once a day Celebrex [facility] 70791790891 200 MG Orally Active 1 cap moe Once a day with food Tolterodine [facility] 75943259216 4 MG Orally Once Active 1 capsule Tartrate ER a day Vistaril [facility] 04595327046 25 MG Orally Active 1 caps ule every 8 hrs as needed Colace [facility] 22667648496 100 MG Orally Active 1 caps ule Every other day as neede d Bydureon [facility] 33778695908 2 MG Active not Subcutaneous defined Results No Known Results Summary Purpose eClinicalWorks Submission
--- OUTSIDE RECORDS SUMMARY | 2019-11-21 17:25 | XMS REPORT | Continuity of Care Document ---
:1960 Author Organization [facility] t Address [address] [place] [address] Care Team Providers Name Role Phone Asked, Pcp Primary Care Physician Unavailable RUFUS Attending Clinician Unavailable [id number] Attending Clinician Unavailable LAVERN Attending Clinician Unavailable Problems Condition Condition Condition Status Onset Resolution Last Treating Co mments Source Name Details Category Date Date Treatment Clinician Date History of History of Problem Resolve Univers [...] microscopi microscopi [id number] ity of c c [place] Phys[facility] Cystitis, Cystitis, Problem Active Uni [...] Dysuria Problem Active Univers [id number] ity of [place] Physici ans Allergies, Adverse Reactions, Alerts Allergy Allergy Status Severity Reaction(s) Onset Inactive Treating Comm ents Source Name Type Date Date Clinician Lactase Propensi Active GI 2015-02 [place] ty to Intolerance 02-18 Metho di adverse [...] Info Not [facility] Reaction [facility] Metformi Adverse Active Info Not [facility] n HCl Reaction Available [facility] Lyrica Adverse Active Info Not [facility] Reaction Available [facility] Glimepir Adverse Active Info Not [facility] t timothy Reaction Available [facility] Lyrica drug Active Univers CAPS allergy ity of [place] Physici ans Family History Family Member Diagnosis Comments Start Date Stop Date Source Mother Family history of Univers ity of [place] diabetes mellitus Physici ans Mother Family history of Univers [facility] [place] lung cancer Physicians Mother Family history of Univers [facility] [place] hypertension Physicians Father Family history of Univers [facility] of [place] stroke Physicians Brother Family history of Univers [facility] of [place] diabetes mellitus Physici ans [facility] mother [facility] Social History Social Habit Start Date Stop Date Quantity Comments Source Sex Assigned At [place] [facility] ethodi Alcohol intake 2015-12-21 2015-12-21 Current [place] [facility] thodist 00:00:00 00:00:00 non-drinker of alcohol (finding) Smoking Status Start Date Stop Date Source Never smoker [facility] Medications Ordered Filled Start Stop Current Ordering Indication Dosage Frequency Signature Comments Components Source Medication Medication Date Date Medication? Clinician (SIG) Name Name Amoxicillin Amoxicillin 2019-0 2020- Yes Luciano [address] [facility] 9-16 09-26 Travis [facility] 00:[facility]: 00:00 [facility] 00 :00 l [facility] Furosemide Furosemide 2018- Yes Luciano 0.[address] [facility] 5-01 Travis [facility] - 00:00: Memoria 00 l [facility] Hydrocodone Hydrocodone 2017-02 Yes Luciano [address] [facility] -Acetaminop -Acetaminop 0-01 Travis as needed [facility] hen 00:00: Memoria 00 l [facility] Tolterodine Tolterodine Yes BLACK 1 PO QD Univers Tartrate ER Tartrate ER 4-30 RUFUS ity of 4 MG Oral 4 MG Oral 00:00: N.P. Lionel as Capsule Capsule 00 Physici Extended Extended ans Release 24 Release 24 Hour Hour folic acid 2015-02 Yes 2mg QD Take 2 mg [place] (FOLVITE) 1 1-09 by mouth Meth gwen [...] a tablet day. cyclobenzap 2015-02 Yes 10mg [id number] Take 10 mg [place] rine - [id number] by mouth 3 Met hodi (FLEXERIL) 15:03: 3D (three) st 10 MG 09 times a tablet day. PILOCARPINE 2015-02 Yes 7.5mg Q.[id number] Take 7.5 [place] HCL ORAL 1-09 [id number] mg by Meth gwen 15:03: 3D mouth 3 st 09 (three) times a day. LISINOPRIL- 2015-02 Yes 2{tbl} QD Take 2 Ho jeana HCTZ 1-09 tablets by Methodi 20-12.5 MG [...] 120U QD Inject [address] [place] de[place]udec 1-09 Units Methodi (TRESIBA 15:03: under the st [...] Ellipta Ellipta Travis [facility] Trazodone Trazodone Yes Luciano [address] [facility] HCl HCl Travis at bedtime [facility] Rafita Eller Yes Luciano not [facility] Travis defined [facility] Tolterodine Tolterodine Yes Luciano [address] Tartrate ER Tartrate ER Travis [facility] Hemocyte Hemocyte Yes Luciano [address] [facility] [address] Plus Plus [facility] Folic Acid Folic Acid Yes Luciano [address] [facility] MetFORMIN MetFORMIN Yes Luciano [address] [facility] [facility] HCl ER HCl ER Travis at night [facility] Metformin Metformin Yes Luciano [address] [facility] HCl HCl Travis with a [facility] - meal in Memoria the l morning [facility] Saphris Saphris Yes Luciano [address] [facility] Travis under the [facility] - tongue and Memoria allow to l dissolve [facility] Paxil Paxil Yes Luciano [address] [facility] Travis in the [facility] - morning [facility] Colace Colace Yes Luciano [address] [facility] Travis as needed [facility] Abilify 20 Abilify 20 Yes [...] 40 MG Oral ity of Tablet Tablet [place] [facility] SulfaSALAzi SulfaSALAzi Yes U nivers ne 500 MG ne 500 MG ity o f Oral Tablet Oral Tablet [place] Phys[place] Leflunomide Leflunomide Yes U nivers 20 MG Oral 20 MG Oral ity of Tablet Tablet [place] [facility] CeleBREX CeleBREX Yes Univers CAPS CAPS ity of [place] Physici ans Hydroxychlo Hydroxychlo Yes U nivers [...] Source BP Systolic 2017-09-03 130 mm[Hg] Location: [facility] 11:02:00 Position: [place] Physician s Sitting BP Diastolic 2017-09-03 80 mm[Hg] Location: [facility] 11:02:00 Position: [place] Physician s Sitting Height 2017-09-03 71 [in_us] [facility] 11:02:00 [place] Phys[place] s Weight 2017-09-03 298 [lb_av] [facility] 11:02:00 [place] Phys[facility] s Body Mass Index 2017-09-03 41.56 kg/m2 [place] o f Calculated 11:02:00 [place] Physician s Temperature 2017-09-03 97.8 [degF] [facility] 11:02:00 [place] Physician s BP Systolic 2017-08-27 108 mm[Hg] Location: [facility] 14:27:00 Position: [place] Physician s Sitting BP Diastolic 2017-08-27 70 mm[Hg] Location: [facility] :27:00 Position: [place] Physician s Sitting Height 2017-08-27 71 [in_us] [facility] 14:27:00 [place] Phys[place] s Weight 2017-08-27 298 [lb_av] [facility] :27:00 [place] Phys[facility] s Body Mass Index 2017-08-27 41.56 kg/m2 [place] o f Calculated 14:27:00 [place] Physician s Temperature 2017-08-27 97.9 [degF] [facility] 14:27:00 [place] Physician s BP Systolic 2017-08-21 130 mm[Hg] Location: [facility] 10:23:00 Position: [place] Physician s Sitting BP Diastolic 2017-08-21 84 mm[Hg] Location: NAIN; [facility] 10:23:00 Position: [place] Physician s Sitting Height 2017-08-21 71 [in_us] University 10:23:00 [place] Phys[facility] s Weight 2017-08-21 298 [lb_av] University 10:23:00 [place] Phys[facility] s Body Mass Index 2017-08-21 41.56 kg/m2 University o f Calculated 10:23:00 [place] Physician s BP Systolic 2017-08-14 150 mm[Hg] Location: NAIN; [facility] 10:53:00 Position: [place] Physician s Sitting BP Diastolic 2017-08-14 72 mm[Hg] Location: NAIN; [facility] 10:53:00 Position: [place] Physician s Sitting Height 2017-08-14 71 [in_us] [facility] 10:53:00 [place] Physician s Weight 2017-08-14 298 [lb_av] [facility] 10:53:00 [place] Physician s Body Mass Index 2017-08-14 41.56 kg/m2 University o f Calculated 10:53:00 [place] Phys[place] s Temperature 2017-08-14 98.8 [degF] University 10:53:00 [place] Phys[facility] s BP Systolic 2017-07-31 132 mm[Hg] Location: NAIN; [facility] 13:51:00 Position: [place] Physician s Sitting BP Diastolic 2017-07-31 68 mm[Hg] Location: NAIN; [facility] 13:51:00 Position: [place] Physician s Sitting Height 2017-07-31 71 [in_us] University 13:51:00 [place] Phys[facility] s Weight 2017-07-31 298 [lb_av] University 13:51:00 [place] Phys[facility] s Body Mass Index 2017-07-31 41.56 kg/m2 University o f Calculated 13:51:00 [place] Phys[facility] s Temperature 2017-07-31 98.2 [degF] University 13:51:00 [place] Phys[facility] s BP Systolic 2017-07-24 122 mm[Hg] Location: NAIN; [facility] 13:30:00 Position: [place] Physician s Sitting BP Diastolic 2017-07-24 72 mm[Hg] Location: NAIN; [facility] 13:30:00 Position: [place] Physician s Sitting Height 2017-07-24 71 [in_us] University of 13:30:00 [place] Physician s Weight 2017-07-24 298 [lb_av] University 13:30:00 [place] Physician s Body Mass Index 2017-07-24 41.56 kg/m2 University o f Calculated 13:30:00 [place] Physician s Temperature 2017-07-24 98.4 [degF] [facility] 13:30:00 [place] Physician s BP Systolic 2017-07-17 110 mm[Hg] Location: [facility]; [facility] 14:32:00 Position: [place] Physician s Sitting BP Diastolic 2017-07-17 80 mm[Hg] Location: NAIN; [facility] 14:32:00 Position: [place] Physician s Sitting Height 2017-07-17 71 [in_us] University 14:32:00 [place] Phys[facility] s Weight 2017-07-17 298 [lb_av] [facility] 14:32:00 [place] Phys[facility] s Body Mass Index 2017-07-17 41.56 kg/m2 University o f Calculated 14:32:00 [place] Physician s BP Systolic 2017-07-03 142 mm[Hg] Location: [facility]; [facility] 09:36:00 Position: [place] Physician s Sitting BP Diastolic 2017-07-03 80 mm[Hg] Location: NAIN; [facility] 09:36:00 Position: [place] Physician s Sitting Height 2017-07-03 71 [in_us] University 09:36:00 [place] [facility] Weight 2017-07-03 298 [lb_av] [facility] 09:36:00 [place] Physician s Body Mass Index 2017-07-03 41.56 kg/m2 University o f Calculated 09:36:00 [place] Phys[facility] s Temperature 2017-07-03 97.4 [degF] [facility] 09:36:00 [place] Physician s BP Systolic 2017-06-19 140 mm[Hg] Location: NAIN; [facility] 15:26:00 Position: [place] Physician s Sitting BP Diastolic 2017-06-19 80 mm[Hg] Location: [facility]; [facility] 15:26:00 Position: [place] Physician s Sitting Height 2017-06-19 71 [in_us] University of 15:26:00 [place] [facility] Weight 2017-06-19 298 [lb_av] University 15:26:00 [place] [facility] Body Mass Index 2017-06-19 41.56 kg/m2 University o f Calculated 15:26:00 [place] Phys[facility] s Temperature 2017-06-19 97.9 [degF] University of 15:26:00 [place] Phys[facility] s BP Systolic 2017-06-12 118 mm[Hg] Location: [facility] :28:00 Position: [place] Physician s Sitting BP Diastolic 2017-06-12 80 mm[Hg] Location: [facility] 13:28:00 Position: [place] Physician s Sitting Height 2017-06-12 71 [in_us] [facility] 13:28:00 [place] Phys[facility] s Weight 2017-06-12 298 [lb_av] [facility] 13:28:00 [place] Physician s Body Mass Index 2017-06-12 41.56 kg/m2 University o f Calculated 13:28:00 [place] Physician s BP Systolic 2017-06-09 160 mm[Hg] Location: [facility]; [facility] 09:20:00 Position: [place] Physician s Sitting BP Diastolic 2017-06-09 92 mm[Hg] [facility] Position: [place] Physician s Sitting Height 2017-06-09 71 [in_us] [facility] 09:20:00 [place] Physician s Weight 2017-06-09 298 [lb_av] [facility] 09:20:00 [place] Phys[facility] s Body Mass Index 2017-06-09 41.56 kg/m2 University o f Calculated 09:20:00 [place] Phys[facility] s Temperature 2017-06-09 98.2 [degF] [facility] 09:20:00 [place] [facility] Procedures Procedure Date / Time Performing Clinician Source Performed [QLH] CULTURE, URINE, 2017-08-27 00:00:00 [facility] ROUTINE Physicians [QL] CULTURE, URINE, 2017-08-21 00:00:00 [facility] ROUTINE Physicians [[facility]] CULTURE, URINE, 2017-06-09 00:00:00 [facility] ROUTINE Physicians History of Ankle [facility] Surgery Physicians History of Hysteroscopy [facility] Physicians Ablation Encounters Start End Encounter Admission Attending Care Care Encounter Source Date/Time Date/Time Type Type Clinicians Facility Department ID 2019-11-11 2019-11-11 [id number] 2019-11-02 2019-11-02 Outpatient [facility] [id number] [facility] 2019-11-02 2019-11-02 Outpatient [facility] [id number] [facility] 2019-10-27 2019-10-27 [facility] [id number] [facility] 14:10:00 14:10:00 [place] [employer] [facility] Medicine l Medicine Outpati ent Clinics 2019-10-27 2019-10-27 [facility] [id number] [facility] 10:59:00 10:59:00 [place] [employer] [facility] Medicine l Medicine Outpati ent Clinics 2019-10-12 2019-10-12 [facility] [id number] 08:20:00 08:20:00 t [employer] [facility] l Medicine Outpati ent Clinics 2019-09-22 2019-09-22 [id number] [facility] 08:30:00 08:30:00 t [employer] [facility] Medicine Outpati ent Clinics 2019-08-10 2019-08-10 [facility] [id number] 13:30:00 13:30:00 t [employer] [facility] l Medicine Outpati ent Clinics 2019-04-02 2019-04-02 [facility] [id number] [facility] 15:07:00 15:07:00 t [employer] [facility] Medicine Outpati ent Clinics 2019-03-16 2019-03-16 [facility] [id number] 17:04:00 17:04:00 t [place] [employer] [facility] Medicine Outpati ent Clinics 2018-12-03 2018-12-03 [facility] [id number] [facility] 16:41:00 16:41:00 t [employer] [facility] l Medicine Outpati ent Clinics 2018-11-18 2018-11-18 [facility] [id number] 08:00:00 08:00:00 t [place] [employer] [facility] Medicine Outpati ent Clinics 2018-07-22 2018-07-22 [facility] [id number] [facility] 08:30:00 08:30:00 t [place] [employer] [facility] s - Drive [facility] Medicine Outpati ent Clinics 2018-06-10 2018-06-10 [facility] [id number] 09:53:00 09:53:00 t [place] [employer] [facility] s - Drive [facility] Medicine Outpati ent Clinics 2018-03-23 2018-03-23 [facility] [id number] [facility] 14:00:00 14:00:00 t [place] [employer] [facility] s - Drive [facility] Medicine Outpati ent Clinics 2018-03-19 2018-03-19 [facility] [id number] 10:45:00 10:45:00 t [place] [employer] s - Drive [facility] Medicine Outpati ent Clinics 2017-11-10 2017-11-10 [facility] [id number] 10:15:00 10:15:00 t [place] [employer] - Drive [facility] Medicine Outpati ent Clinics 2017-11-06 2017-11-06 [facility] [id number] 08:00:00 08:00:00 t [place] [employer] - Drive [facility] Medicine Outpati ent Clinics 2017-09-23 2017-09-23 [facility] [id number] [facility] 16:07:00 16:07:00 t [place] [employer] [facility] Medicine Outpati ent Clinics 2017-09-03 2017-09-03 AppointRHIANNON Su UroLiannacosilvano 4 [id number] Univers 11:00:00 11:00:00 t; KARISSA CLEANING gy Center it y of Seferino HOOPER NP Physic i ans 2017-08-27 2017-08-27 AppointRHIANNON Su UroLiannacosilvano 4 [id number] Univers 14:10:00 14:10:00 t; KARISSA CLEANING gy Center it y of Sefer[place] HOOPER NP Physic i ans 2017-08-21 2017-08-21 Appointguerita HOOPER UTP UroGynecolo 4 [id number] Univers 10:10:00 10:10:00 t; KARISSA CLEANING gy Center it y of Seferino HOOPER s KARISSA CLEANING Physic i ans 2017-08-14 2017-08-14 [facility] RHIANNON HOOPER UroGynecolo 4 [id number] Univers 11:00:00 11:00:00 t; KARISSA CLEANING gy Center it y of Seferino HOOPER s KARISSA CLEANING Physic i ans 2017-07-31 2017-07-31 [facility] RHIANNON HOOPER UroGynecolo 4 [id number] Univers 14:10:00 14:10:00 t; KARISSA CLEANING gy Center it y of Seferino HOOPER s KARISSA CLEANING Physic i ans 2017-07-24 2017-07-24 [facility] RHIANNON HOOPER UroGynecolo 4 [id number] Univers 13:20:00 13:20:00 t; KARISSA CLEANING gy Center it y [facility] Kassidy s KARISSA CLEANING Physic i ans 2017-07-17 2017-07-17 [facility] RHIANNON HOOPER UroGynecolo 4 [id number] Univers 14::00 14:10:00 t; KARISSA CLEANING gy Center it y of Seferino HOOPER s KARISSA CLEANING Physic i ans 2017-07-03 2017-07-03 [facility] UROGYEdvin, RHIANNON Women's [id number] Univers 09:00:00 09:00:00 t[facility] [place] [facility] [address] DEREA Physici ans 2017-06-26 2017-06-26 [facility] RHIANNON HOOPER UroGynecolo 4 [id number] Univers 09:00:00 09:00:00 t; KARISSA CLEANING gy Center it y of Seferino HOOPER s KARISSA CLEANING Physic i ans 2017-06-25 2017-06-25 [facility] [id number] 09:30:00 09:30:00 t [place] [employer] [facility] 2017-06-19 2017-06-19 Appointmen [place], UTP UroGynecolo 4 [id number] Univers 15:20:00 15:20:00 t; BLACK, SKEET OPERATOR gy Center it [facility] s BLACK, SKEET OPERATOR Physic i ans 2017-06-12 2017-06-12 [facility] RUFUS, UTP UroGynecolo 4 [id number] Univers 13:20:00 13:20:00 t; BLACK, SKEET OPERATOR gy Center it [facility] s BLACK, SKEET OPERATOR Physic i ans 2017-06-09 2017-06-09 [facility] RUFUS, UTP UTP [id number] Univers 09:20:00 09:20:00 t; BLACK, SKEET OPERATOR ity of [place], [place] BLACK, SKEET OPERATOR Physic i ans 2016-12-19 2016-12-19 [facility] RUFUS, UTP UTP [id number] Univers 10:10:00 10:10:00 t; BLACK, SKEET OPERATOR ity of [place], [place] BLACK, SKEET OPERATOR Physic i ans 2016-11-28 2016-11-28 [facility] RUFUS, UTP UTP [id number] Univers 10:10:00 10:10:00 t; BLACK, SKEET OPERATOR ity of [place], [place] BLACK, SKEET OPERATOR Physic i ans 2016-09-12 2016-09-12 [facility] RUFUS, UTP UTP [id number] Univers 13:20:00 13:20:00 t; BLACK, SKEET OPERATOR ity of [place], [place] BLACK, SKEET OPERATOR Physic i ans 2015-11-30 2015-11-30 [facility] RUFUS, UTP UTP [id number] Univers 09:00:00 09:00:00 t; BLACK, SKEET OPERATOR ity of [place], [place] BLACK, SKEET OPERATOR Physic i ans 2015-10-20 2015-10-20 [facility] LAVERN, UTP UTP [id number] Univers 10:10:00 10:10:00 t; Preeti CARTER of [place]rtle PUCKETT M.D. Physi ci ans 2015-09-21 2015-09-21 [facility] LAVERN, UTP UTP [id number] Univers 13:00:00 13:00:00 t; Preeti CARTER [place] NINA, M.D. Physi ci ans 2015-08-10 2015-08-10 [facility] UTP [id number] Univers 09:30:00 09:30:00 t; Preeti CARTER [place], [place] Preeti CARTER Physi ci ans 2015-08-02 2015-08-02 [facility] LAVERN [facility] UTP [id number] Univers 08:30:00 08:30:00 t; Preeti CARTER [place], [place] Preeti CARTER Physi ci ans 2015-07-05 2015-07-05 [facility] UTP [id number] Univers 08:30:00 08:30:00 t; Preeti CARTER [place], [place] Preeti CARTER Physi ci ans Results Test Description Test Time Test Comments Results Result Comments Source [[facility]] CULTURE, URINE, ROUTINE 2017-08-28 14:25:01 Test Item Value Reference Range Interpretation Comme nts ORGANISM (test code = 699-9) Escherichia coliEnterococcus Species FINAL REPORT (test code = FINAL 50,000 - 100,000 CFU/mL Escherichia coli REPORT) 10,000 - 50,000 CFU/mL EnterococcusSpecies 10,000 - 50,000 CFU/mL Skin Nina [facility][H] [id number] 14:25:01 Test Item Value Reference Range Interpretation Comments ORGANISM (test code = Enterococcus 699-9) Species Ampicillin (test code - S = Ampicillin) Levofloxacin (test - S code = Levofloxacin) Nitrofurantoin (test - S code = Nitrofurantoin) Tetracycline (test - S code = Tetracycline) Vancomycin (test code SEE NOTES S S= Latoya ceptible, = Vancomycin) R= Resistant, I= Intermediate, N/A= Not Applicable [facility][H] [id number] 14:25:01 Test Item Value Reference Range Interpretation [...] Tetracycline (test code = - S Tetracycline) [facility][O] Urine Dipstick (In Office)2017-08-27 15:29:00 Test Item Value Reference Range Interpretation Comments LEUKOCYTES (test code = LEUKOCYTES) 2+ A NITRITE; Normal (test code = 96810-1) neg N UROBILINOGEN; Normal (test code = 0.2 N 27692-7) PROTEIN; Normal (test code = 33738-9) neg N pH (test code = pH) 6.5 N URINE BLOOD; Abnormal (test code = trace A 36135-3) SPECIFIC GRAVITY; Normal (test code = 1.020 N 2965-2) KETONES; Normal (test code = 39742-2) neg N BILIRUBIN; Normal (test code = 32510-3) neg N GLUCOSE; Normal (test code = 1547-9) neg N [facility]] CULTURE, URINE, [id number] 15:37:01 Test Item Value Reference Range Interpretation Comments ORGANISM (test code = Escherichia coli 699-9) FINAL REPORT (test 50,000 - 100,000 CFU/mL code = FINAL REPORT) Escherichia coli . 50,000 - 100,000 CFU/mL Skin Nina [facility][H] [id number] 15:37:01 Test Item Value Reference Range Interpretation [...] Resi stant, I= Intermediate, N/A= Not Applicable [facility][O] Urine Dipstick (In Office)2017-08-21 12:24:00 Test Item Value Reference Range Interpretation Comments LEUKOCYTES (test code = LEUKOCYTES) 2+ A NITRITE; Normal (test code = 41751-0) NEG N UROBILINOGEN; Normal (test code = 0.2 N 11628-0) PROTEIN; Abnormal (test code = 34121-8) 30 MG A pH (test code = pH) 5.5 N URINE BLOOD; Abnormal (test code = 2+ A 66032-4) SPECIFIC GRAVITY; Normal (test code = 1.030 N 2965-2) KETONES; Normal (test code = 14860-0) NEG N BILIRUBIN; Normal (test code = 55792-4) NEG N GLUCOSE; Normal (test code = 1547-9) NEG N [facility][O] Urine Dipstick (In Office)2017-06-09 10:06:00 Test Item Value Reference Range Interpretation Comments LEUKOCYTES (test code = LEUKOCYTES) 2+ A NITRITE; Normal (test code = 97848-6) NEG N UROBILINOGEN; Normal (test code = 0.2 N 70225-5) PROTEIN; Normal (test code = 17917-3) NEG N pH (test code = pH) 7.0 N URINE BLOOD; Abnormal (test code = 2+ A 87734-6) SPECIFIC GRAVITY; Normal (test code = 1.010 N 2965-2) KETONES; Normal (test code = 13951-1) NEG N BILIRUBIN; Normal (test code = NEG N 80538-6) GLUCOSE; Abnormal (test code = 1547-9) 250 MG A [facility] Physicians[[facility]] BV/ VAGINITIS PANEL DNA PROBE AFFIRM 2017-06-09 09:20:01 Test Item Value Reference Range Interpretation Comments Trichomonas vaginalis DNA (test code Negative Negative = 16989-9) Gardnerella vaginalis DNA; Abnormal Positive Negative A (test code = 6410-5) Grace sp. DNA; Abnormal (test code Positive Negative A = 67601-4) [facility]] CULTURE, URINE, [id number] 09:20:01 Test Item Value Reference Range Interpretation Comments ORGANISM (test code = Escherichia coli 699-9) FINAL REPORT (test >100,000 CFU/mL code = FINAL REPORT) Escherichia coli 10,000 - 50,000 CFU/mL Skin Nina [facility][] [id number] 09:20:01 Test Item Value Reference Range Interpretation Comments ORGANISM (test code Escherichia coli = 699-9) Ciprofloxacin (test .75 S code = Ciprofloxacin) Levofloxacin (test 1.5 S code = Levofloxacin) Trimethoprim/Sulfame 32 R thoxazole (test code = Trimethoprim/Sulfame thoxazole) Ceftriaxone (test .094 S S= Suscept ible, code = Ceftriaxone) R= Resis tant, I= Intermediate, N/A= Not Applicable [facility]
--- OUTSIDE RECORDS SUMMARY | 2019-11-21 17:25 | XMS REPORT ---
[...] osteoarthritis of both knees M17.0 Active Problem Psoriatic arthritis L40.50 Active Problem [...] Problem Vitamin D deficiency E55.9 Active Problem Morbid obesity E66.01 Active Problem Benign essential HTN I10 Active Medications No Known Medications Results No Known Results Summary Purpose [employer] Submission
--- OUTSIDE RECORDS SUMMARY | 2019-11-21 17:26 | XMS REPORT ---
:1960 Author Organization [facility] Address [address] [place] [address] Care Team Providers Name Role Phone Lisa Travish Unavailable [phone] PROBLEMS Type Condition ICD9-CM [id number] Onset Condition SNOMED Code Notes Code Code Dates Status Problem Diabetes type 2, E11.9 Active 480877283 controlled Problem Restless leg G25.81 Active 73973852 syndrome Problem Diabetic E11.40 Active 414394445 neuropathy Problem Fibromyalgia M79.7 Active 176177081 Problem Insomnia G47.00 Active 855106917 Problem Morbid obesity E66.01 Active 347662385 Problem Vitamin D E55.9 Active 32844075 deficiency Problem Fatty liver K76.0 Active 009896924 Problem Ankylosing M45.0 Active 5089115 spondylitis of multiple sites in spine Problem 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 sleep disorder, shift work type Problem Iron deficiency D50.0 Active 867625944 anemia due to chronic blood loss Problem Chronic J44.9 Active 25657859 obstructive pulmonary disease, unspecified COPD type Problem Rheumatoid M06.9 Active 31256627 arthritis Problem GERD without K21.9 Active 492880778 esophagitis Problem Psoriatic L40.50 Active 284550343 arthritis Problem Benign essential I10 Active 50226411 HTN Problem Bipolar disorder F31.9 Active 71218319 Problem Hyperlipidemia, E78.2 Active 886986819 mixed Problem Overactive bladder N32.81 Active 157510044 Problem Obstructive sleep G47.33 Active 06811429 apnea Problem Primary M17.0 Active 935105751 osteoarthritis of both knees ALLERGIES No Information ENCOUNTERS from 1960 to 2019-11-03 Encounter Location Date Provider Diagnosis [facility] [address], [place] [address] IMMUNIZATIONS No Information SOCIAL HISTORY Sex Assigned At : Social History Observation Description Sex Assigned At Unknown REASON FOR REFERRAL No Information VITAL SIGNS No information MEDICATIONS No Information PROCEDURES No Information RESULTS No Results REASON FOR VISIT earache not better MEDICAL (GENERAL) HISTORY Type Description Date Medical History Obstructive sleep apnea Medical History Rheumatoid arthritis Medical History Bipolar disorder Medical History Morbid obesity Medical History Diabetes type 2, controlled Medical History Diabetic neuropathy Medical History Ankylosing spondylitis of multiple sites in spine Medical History Fatty liver Medical History Benign essential HTN Medical History Hyperlipidemia, mixed Medical History Fibromyalgia Medical History Iron deficiency anemia due to chronic bl ood loss Medical History Vitamin D deficiency Medical History Circadian rhythm sleep disorder, shift w ork type Medical History Insomnia Medical History Overactive bladder Medical History Restless leg syndrome Medical History GERD without esophagitis Surgical History D & C Surgical History Uterine Ablation Surgical History Right arm surgery to repair a fracture Goals Section No Information Health Concerns No Information MEDICAL EQUIPMENT No Information MENTAL STATUS No Information FUNCTIONAL STATUS No Information ASSESSMENTS No Information PLAN OF TREATMENT No Information
--- OUTSIDE RECORDS SUMMARY | 2019-11-21 17:26 | XMS REPORT ---
:1960 Author Organization [facility] Address [address] [place] [address] Care Team Providers Name Role Phone Travis Unavailable [phone] PROBLEMS Type Condition ICD9-CM [id number] Onset Condition SNOMED Code Notes Code Code Dates Status Problem Diabetes type 2, E11.9 Active 943534767 controlled Problem Restless leg G25.81 Active 72495932 syndrome Problem Diabetic E11.40 Active 662351917 neuropathy Problem Fibromyalgia M79.7 Active 068491173 Problem Insomnia G47.00 Active 362420078 Problem Morbid obesity E66.01 Active 035669163 Problem Vitamin D E55.9 Active 13519515 deficiency Problem Fatty liver K76.0 Active 582039625 Problem Ankylosing M45.0 Active 7325070 spondylitis of multiple sites in spine Problem 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 019761684 sleep disorder, shift work type Problem Iron deficiency D50.0 Active 790071448 anemia due to chronic blood loss Problem Chronic J44.9 Active 92414513 obstructive pulmonary disease, unspecified COPD type Problem Rheumatoid M06.9 Active 51492192 arthritis Problem GERD without K21.9 Active 872983575 esophagitis Problem Psoriatic L40.50 Active 834910313 arthritis Problem Benign essential I10 Active 25779484 HTN Problem Bipolar disorder F31.9 Active 62147373 Problem Hyperlipidemia, E78.2 Active 463267579 mixed Problem Overactive bladder N32.81 Active 578801918 Problem Obstructive sleep G47.33 Active 22195319 apnea Problem Primary M17.0 Active 943514037 osteoarthritis of both knees ALLERGIES Allergen (clinical drug Drug/Non Drug Allergy Reaction Allergy Type Onset Date Status ingredient) documented on EMR glimepiride Glimepiride([facility] Unknown Drug Allergy Active Code:[address]-62) metformin Metformin HCl([facility] Unknown Drug Allergy Activ e Code:[address]-24) pregabalin Lyrica([facility] Unknown Drug Allergy Active Code:[address]-56) canagliflozin Invokana([facility] Unknown Drug Allergy Active Code:[address]-44) ENCOUNTERS from 1960 to 2019-11-11 Encounter Location Date Provider Diagnosis [facility] [address] [facility] [address], [place] [address] IMMUNIZATIONS Vaccine Route Administration Date Status Kenalog (Triamcinolone) IM Intramuscular Nov 02, 2019 Adminis tered SOCIAL HISTORY Tobacco Use: Social History Observation Description Date Details (start date - stop date) Never Smoker Sex Assigned At : Social History Observation Description Sex Assigned At Unknown Alcohol Screen Question Answer Notes Did you have a drink containing alcohol in the past year? No Points 0 Interpretation Negative Tobacco Use/Smoking Question Answer Notes Are you a never smoker REASON FOR REFERRAL No Information VITAL SIGNS No information MEDICATIONS Medication SIG (Take, Route, Start Date End Date Status Frequency, Duration) Plaquenil 200 MG 1 tablet with food or Ac tive milk Orally Once a day Leflunomide 20 MG 1 tablet Orally Once a Active day Pilocarpine HCl 7.5 MG 1 tablet Orally Three Active times a day Furosemide 20 MG 0.5 tablet Orally Once a June, Not-Taking day for 16 days Amoxicillin-Pot 1 tablet Orally every 12 Oct, Nov, Active Clavulanate 875-125 MG hrs for 10 day(s) Hemocyte Plus 106-1 MG 1 capsule Orally Once a Active day Bydureon 2 MG Subcutaneous Active Folic Acid 1 MG 1 tablet Orally Once a Ac tive day Tolterodine Tartrate ER 4 1 capsule Orally Once a Active MG day MetFORMIN HCl ER 500 MG 1 tablet at night Active Orally Once a day Iron 325 (65 Fe) MG 1 tablet Orally Once a Active day Metformin HCl 1000 MG 1 tablet with a meal in Active the morning Orally Once a day ProAir HFA 108 (90 Base) 2 puffs as needed Not-Taking MCG/ACT Inhalation every 6 hrs Paxil 40 MG 1 tablet in the morning Acti ve Orally Once a day Breo Ellipta 200-25 1 puff Inhalation Once a Active MCG/INH day Zestoretic 20-12.5 MG 1 tablet Orally Once a Active day for 90 days Celebrex 200 MG 1 capsule with food Activ e Orally Once a day Colace 100 MG 1 capsule as needed Not-Yobani ing Orally Every other day Saphris 10 MG 1 tablet under the Active tongue and allow to dissolve Sublingual Once a day Savella 50 MG 2 tablets Orally Twice a Ac tive day Trazodone HCl 100 MG 1 tablet at bedtime Active Orally Once a day Vistaril 25 MG 1 capsule as needed Active Orally every 8 hrs Hydrocodone-Acetaminophen 1 tablet as needed Nov, Not-Taking 5-325 MG Orally every 12 hrs Omeprazole 40 MG 1 capsule Orally Once a Active day for 90 day(s) Abilify 20 MG 1 tablet Orally Once a Acti ve day Cyclobenzaprine HCl 10 MG 1 tablet as needed Active Orally Three times a day Guaifenesin-Codeine 10 ml as needed Orally Active 100-10 MG/5ML every 6 hrs PRN Cough for 10 days Humalog 100 UNIT/ML as directed Subcutaneous Active Restasis 0.05 % 1 drop into affected eye Active Ophthalmic Twice a day Atorvastatin Calcium 10 1 tablet Orally Once a Active MG day for 90 days Toujeo SoloStar 300u/ml subcutaneously once Active daily PROCEDURES No Information RESULTS No Results REASON FOR VISIT FYI: ENT,Neuro for ear MEDICAL (GENERAL) HISTORY Type Description Date Medical [...] Information ASSESSMENTS No Information PLAN OF TREATMENT Medication Medication Name Sig Start Date Stop Date Amoxicillin-Pot Clavulanate 1 tablet Orally every 12 22 Oct, 0 2 Nov, 2019 875-125 MG hrs for 10 day(s) Next Appt Details Provider Name:Luciano Travis, 2020-02-23 0 3:00:00 PM, [address], [address], [place], [address], Provider Name:Luciano Travis, 2020-02-23 0 3:00:00 PM, [address], [address], [place], [address], Provider Name:Luciano Travis, 2020-02-23 0 3:20:00 PM, [address], [address], [place], [address], Insurance Providers Payer Name Payer Address Payer Insured Patient Coverage Cover age End Phone Name Relationship to Start Date Steve e Insured [employer] [address] [address] [phone] Kilo Armstrong [facility] 023 n [phone]
--- OUTSIDE RECORDS SUMMARY | 2019-11-21 17:26 | XMS REPORT ---
:1960 Author Organization [facility] Address [address] [place] [address] Care Team Providers Name Role Phone Travis Unavailable [phone] PROBLEMS Type Condition ICD9-CM QHH19-XY Onset Condition SNOMED Code Notes Code Code Dates Status Problem Diabetes type 2, E11.9 Active 910518644 controlled Problem Restless leg G25.81 Active 61610610 syndrome Problem Diabetic E11.40 Active 989971693 neuropathy Problem Fibromyalgia M79.7 Active 025376102 Problem Insomnia G47.00 Active 001787224 Problem Morbid obesity E66.01 Active 841808639 Problem Vitamin D E55.9 Active 94566664 deficiency Problem Fatty liver K76.0 Active 548025438 Problem Ankylosing M45.0 Active 3516126 spondylitis of multiple sites in spine Problem 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 833637798 sleep disorder, shift work type Problem Iron deficiency D50.0 Active 614599220 anemia due to chronic blood loss Problem Chronic J44.9 Active 39552932 obstructive pulmonary disease, unspecified COPD type Problem Rheumatoid M06.9 Active 72094278 arthritis Problem GERD without K21.9 Active 238477941 esophagitis Problem Psoriatic L40.50 Active 935952689 arthritis Problem Benign essential I10 Active 64030330 HTN Problem Bipolar disorder F31.9 Active 53616790 Problem Hyperlipidemia, E78.2 Active 131543094 mixed Problem Overactive bladder N32.81 Active 649050263 Problem Obstructive sleep G47.33 Active 71521526 apnea Problem Primary M17.0 Active 949877639 osteoarthritis of both knees ALLERGIES Allergen (clinical drug Drug/Non Drug Allergy Reaction Allergy Type Onset Date Status ingredient) documented on EMR glimepiride Glimepiride([facility] Unknown Drug Allergy Active Code:[address]-73) metformin Metformin HCl([facility] Unknown Drug Allergy Activ e Code:[address]-65) pregabalin Lyrica([facility] Unknown Drug Allergy Active Code:[address]-75) canagliflozin Invokana([facility] Unknown Drug Allergy Active Code:[address]-85) ENCOUNTERS from 1960 to 2019-11-03 Encounter Location Date Provider Diagnosis [facility] [address], [facility] Non -recurrent acute Family Medicine [address], [place] [address] of both ears H 65.03 IMMUNIZATIONS Vaccine Route Administration Date Status Kenalog [...] REASON FOR REFERRAL No Information VITAL SIGNS Height 71.5 in Oct, Weight 283.4 lbs Oct, Temperature 96.8 degrees Fahrenheit Oct, BMI 38.97 kg/m2 Oct, Oximetry 97 % Oct, Respiratory Rate 19 /min Oct, Blood pressure systolic 133 mm Hg Oct, Blood pressure diastolic 75 mm Hg Oct, MEDICATIONS Medication SIG (Take, Route, Start Date End Date Status Frequency, Duration) Plaquenil 200 MG 1 tablet with food or Ac tive milk Orally Once a day Leflunomide 20 MG 1 tablet Orally Once a Active day Amoxicillin-Pot 1 tablet Orally every Oct, Nov, Act mago Clavulanate 875-125 MG 12 hrs for 10 day(s) Pilocarpine HCl 7.5 MG 1 tablet Orally Three Active times a day Furosemide 20 MG 0.5 tablet Orally Once June, N ot-Taking a day for 16 days Hydrocodone-Acetaminophen 1 tablet as needed Nov, Not-Taking 5-325 MG Orally every 12 hrs Hemocyte Plus 106-1 MG 1 capsule Orally Once a Active day Amoxicillin 500 MG 1 capsule Orally every 16 Oct, 2019 Oct, Active 12 hrs for 10 day(s) Folic Acid 1 MG 1 tablet Orally Once a Ac tive day Tolterodine Tartrate ER 4 1 capsule Orally Once a Active MG day Metformin HCl 1000 MG 1 tablet with a meal in Active the morning Orally Once a day Iron 325 (65 Fe) MG 1 tablet Orally Once a Active day Bydureon 2 MG Subcutaneous Active MetFORMIN HCl ER 500 MG 1 tablet at night Active Orally Once a day Paxil 40 MG 1 tablet in the morning Acti ve Orally Once a day Breo Ellipta 200-25 1 puff Inhalation Once Active MCG/INH a day Zestoretic 20-12.5 MG 1 tablet Orally [...] Savella 50 MG 2 tablets Orally Twice Acti ve a day Trazodone HCl 100 MG 1 tablet at bedtime Active Orally Once a day Vistaril 25 MG 1 capsule as needed Active Orally every 8 hrs ProAir HFA 108 (90 Base) 2 puffs as needed Not-Taking MCG/ACT Inhalation every 6 hrs Omeprazole 40 MG 1 capsule Orally Once a Active day for 90 day(s) Abilify 20 MG 1 tablet Orally Once a Acti ve day Cyclobenzaprine HCl 10 MG 1 tablet as needed Active Orally Three times a day Guaifenesin-Codeine 10 ml as needed Orally Active 100-10 MG/5ML every 6 hrs PRN Cough for 10 days Humalog 100 UNIT/ML as directed Active Subcutaneous Restasis 0.05 % 1 drop into affected Acti ve eye Ophthalmic Twice a day Atorvastatin Calcium 10 1 tablet Orally Once a Active MG day for 90 days Toujeo SoloStar 300u/ml subcutaneously once Active daily PROCEDURES No Information RESULTS No Results REASON FOR VISIT both ear pain MEDICAL (GENERAL) HISTORY Type Description Date Medical [...] No Information FUNCTIONAL STATUS No Information ASSESSMENTS Encounter Date Diagnosis Notes Oct, Non-recurrent acute serous otitis media of both ears (ICD-10 - H65.03) PLAN OF TREATMENT Medication Medication Name Sig Start Date Stop Date Amoxicillin-Pot Clavulanate 1 tablet Orally every 12 Oct, 0 2 Nov, 2019 875-125 MG hrs for 10 day(s) Treatment Notes Assessment Notes Clinical Notes Non-recurrent acute serous With the duration and If unchange d, will otitis media of both ears severity, will treat with consider ENT referral AUgmentin for 10 days + and/or changing Abx. Kenalog IM in office for theraeutic reason. side effect panel discussed. Ok to alternative Tylenol and/or NSIADS as needed for pain and fever, if tolerated and use as directed. Discussed supportive measures as well for symptomatic relief. Avoid Q-tips and further water exposure. Anticipatory guidance given. Patient agreeable with plan. Next Appt Details prn Reason: Provider Name:Luciano Thaddeus, 2020-02-23 0 3:00:00 PM, [address], [address], [place], [address], Provider Name:Luciano Thaddeus 2020-02-23 0 3:00:00 PM, [address], [address], [place], [address], Provider Name:Luciano Thaddeus 2020-02-23 0 3:20:00 PM, [address], [place], [address], Insurance Providers Payer Name Payer Address Payer Insured Patient Coverage Cover age End Phone Name Relationship to Start Date Steve e Insured [employer] [address] [address] [phone] Kilo Armstrong [facility] 023 n [phone]
[2019-11-21] MEDS ORDERED: LORAZEPAM 1 MG TABLET ONE (17:49)
[2019-11-21] MEDS ORDERED: PROMETHAZINE INJ 25 MG/ML AMP ONE (17:49)
--- NOTE | 2019-11-21 18:44 | EDPHYS ---
Physician Documentation [facility] Name: Bob Armstrong Age: 59 yrs Sex: Female : 1960 Arrival Date: 11/21/2019 Time: 17:22 Bed 17 Private MD: Luciano Travis ED Physician Konstantin Patel HPI: 11/20 17:44 This 59 yrs old Female presents to ER via Ambulatory with complaints of snw Allergic Reaction. 17:44 The patient presents with anxious and mouth feels strange. Onset: The symptoms/episode snw began/occurred suddenly, 1 week(s) ago, and became worse and became persistent. Possible causes: tegretol. At home the patient or guardian has treated the symptoms with nothing. Severity of symptoms: At their worst the symptoms were moderate. It is unknown whether or not the patient has had similar symptoms in the past. sees ENT and Neurology in [place], Dr. Main. dx with trigeminal neuralgia. Historical: - Allergies: 17:25 Lyrica; ll1 17:25 Methylprednisolone; ll1 17:25 zpack; ll1 - PMHx: 17:25 Depression; insomnia; osteoarthritis; Hypertension; Hyperlipidemia; Diabetes - NIDDM; ll1 Rheumatoid Arthritis; - PSHx: 17:25 bladder; ll1 ROS: 17:42 Constitutional: Negative for fever, chills, and weight loss, feels anxious, feels off, snw feels like possible allergy to tegretol. Pt states she is supposed to have MRI in [facility]. Eyes: Negative for injury, pain, redness, and discharge, ENT: Negative for injury, pain, and discharge, Neck: Negative for injury, pain, and swelling, Cardiovascular: Negative for chest pain, palpitations, and edema, Respiratory: Negative for shortness of breath, cough, wheezing, and pleuritic chest pain, Abdomen/GI: Negative for abdominal pain, nausea, vomiting, diarrhea, and constipation, Back: Negative for injury and pain, : Negative for injury, bleeding, discharge, and swelling, MS/Extremity: Negative for injury and deformity, Skin: Negative for injury, rash, and discoloration, Neuro: Negative for weakness, numbness, tingling, and seizure, + headache Psych: Negative for depression, anxiety, suicide ideation, homicidal ideation, and hallucinations. Exam: 17:41 Head/Face: Normocephalic, atraumatic. Eyes: Pupils equal round and reactive to light, snw extra-ocular motions intact. Lids and lashes normal. Conjunctiva and sclera are non-icteric and not injected. Cornea within normal limits. Periorbital areas with no swelling, redness, or edema. ENT: Nares patent. No nasal discharge, no septal abnormalities noted. Tympanic membranes are normal and external auditory canals are clear. Oropharynx with no redness, swelling, or masses, exudates, or evidence of obstruction, uvula midline. Mucous membranes moist. Neck: Trachea midline, no thyromegaly or masses palpated, and no cervical lymphadenopathy. Supple, full range of motion without nuchal rigidity, or vertebral point tenderness. No Meningismus. Chest/axilla: Normal chest wall appearance and motion. Nontender with no deformity. No lesions are appreciated. 17:41 Respiratory: Lungs have equal breath sounds bilaterally, clear to auscultation and percussion. No rales, rhonchi or wheezes noted. No increased work of breathing, no retractions or nasal flaring. Abdomen/GI: Soft, non-tender, with normal bowel sounds. No distension or tympany. No guarding or rebound. No evidence of tenderness throughout. Back: No spinal tenderness. No costovertebral tenderness. Full range of motion. Skin: Warm, dry with normal turgor. Normal color with no rashes, no lesions, and no evidence of cellulitis. MS/ Extremity: Pulses equal, no cyanosis. Neurovascular intact. Full, normal range of motion. Neuro: Awake and alert, GCS 15, oriented to person, place, time, and situation. Cranial nerves II-XII grossly intact. Motor strength 5/5 in all extremities. Sensory grossly intact. Cerebellar exam normal. Normal gait. 17:41 Constitutional: The patient appears alert, awake, anxious, obese, restless, uncomfortable. 17:41 Cardiovascular: Rate: tachycardic, Rhythm: regular, Heart sounds: normal. 17:41 Psych: Behavior/mood is anxious, Affect is animated, Oriented to person, place, time. Vital Signs: 17:26 BP 135 / 101; Pulse 102; Resp 20; Temp 98.8; Pulse Ox 98% ; Height 5 ft. 11 in. (180.34 ll1 cm); Pain 10/10; MDM: 17:30 Patient medically screened. snw 18:44 Data reviewed: vital signs, nurses notes. Data interpreted: Pulse oximetry: on room air snw is 98 %. Interpretation: normal. Counseling: I had a detailed discussion with the patient and/or guardian regarding: the historical points, exam findings, and any diagnostic results supporting the discharge/admit diagnosis, the presence of at least one elevated blood pressure reading (>120/80) during this emergency department visit, the need for outpatient follow up, to return to the emergency department if symptoms worsen or persist or if there are any questions or concerns that arise at home. Response to treatment: the patient's symptoms have markedly improved after treatment, and as a result, I will discharge patient. Special discussion: Based on the history and exam findings, there is no indication for further emergent testing or inpatient evaluation. I discussed with the patient/guardian the need to see the neurologist for further evaluation of the symptoms. I discussed with the patient/guardian the need to see the primary care provider for further evaluation of the symptoms. Administered Medications: 17:43 Drug: Ativan 1 mg Route: PO; em 18:42 Follow up: Response: No adverse reaction em 17:45 Drug: Phenergan 25 mg Route: IM; Site: right deltoid; em 18:42 Follow up: Response: No adverse reaction; Marked relief of symptoms em Disposition: 11/21/19 18:43 Discharged to Home. Impression: Anxiety disorder, unspecified, Allergy, unspecified. - Condition is Stable. - Discharge Instructions: Allergies, Adult, Generalized Anxiety Disorder. - Prescriptions for promethazine 25 mg Oral Tablet - take 1 tablet by ORAL route every 6 hours As needed; 20 tablet. - Medication Reconciliation Form, Thank You Letter, Antibiotic Education, Prescription Opioid Use form. - Follow up: Luciano Travis, DO; When: 2 - 3 days; Reason: Recheck today's complaints, Continuance of care, Re-evaluation by your physician. Follow up: Emergency Department; When: As needed; Reason: Worsening of condition. - Notes: Last phenergan at 5:31pm Signatures: Christine Angeles, UNIT TENDER-C UNIT TENDER-Victorianow Celso Odom RN RN em Jeffery, Lynsay, RN RN ll1 Corrections: (The following items were deleted from the chart) 19:06 18:43 11/21/2019 18:43 Discharged to Home. Impression: Anxiety disorder, unspecified; em Allergy, unspecified. Condition is Stable. Forms are Medication Reconciliation Form, Thank You Letter, Antibiotic Education, Prescription Opioid Use. Follow up: [facility]; When: 2 - 3 days; Reason: Recheck today's complaints, Continuance of care, Re-evaluation by your physician. Follow up: Emergency Department; When: As needed; Reason: Worsening of condition. snw
--- NOTE | 2019-11-21 18:44 | ER ---
Nurse's Notes [facility] Name: Bob Armstrong Age: 59 yrs Sex: Female : 1960 Arrival Date: 11/21/2019 Time: 17:22 Bed 17 Private MD: Luciano Travis Diagnosis: Anxiety disorder, unspecified;Allergy, unspecified Presentation: 11/20 17:26 Chief complaint: Patient states: Reports allergic reaction for a few days. + STATON, ll1 agitated, restless now. Being treated for thrush, which is getting worse. States she believes its a reaction to the trigeminal neuralgia medication they put her on two weeks ago. Coronavirus screen: Client denies travel out of the [place] in the last 14 days. At this time, the client does not indicate any symptoms associated with coronavirus-19. Ebola Screen: Patient denies travel to an Ebola-affected area in the 21 days before illness onset. Onset: The symptoms/episode began/occurred 3 day(s) ago. Anaphylaxis evaluation, the patient reports or I have noted the following symptoms which indicate a significant risk of anaphylaxis:. Initial Sepsis Screen: Does the patient meet any 2 criteria? HR > 90 bpm. No. Patient's initial sepsis screen is negative. Does the patient have a suspected source of infection? No. Patient's initial sepsis screen is negative. Risk Assessment: Do you want to hurt yourself or someone else? Patient reports no desire to harm self or others. Onset of symptoms was November 19, 2019. 17:26 Method Of Arrival: Ambulatory ll1 17:26 Acuity: JERRY 3 ll1 Historical: - Allergies: 17:25 Lyrica; ll1 17:25 Methylprednisolone; ll1 17:25 zpack; ll1 - PMHx: 17:25 Depression; insomnia; osteoarthritis; Hypertension; Hyperlipidemia; Diabetes - NIDDM; ll1 Rheumatoid Arthritis; - PSHx: 17:25 bladder; ll1 Screenin:40 Abuse screen: Denies threats or abuse. Nutritional screening: No deficits noted. em Tuberculosis screening: No symptoms or risk factors identified. Fall Risk None identified. Assessment: 17:38 General: Appears in no apparent distress. uncomfortable, Behavior is cooperative, em anxious. Pain: Denies pain. Neuro: Level of Consciousness is awake, alert, obeys commands, Oriented to person, place, time, situation, Appropriate for age. Cardiovascular: Capillary refill < 3 seconds Patient's skin is warm and dry. Respiratory: Airway is patent Respiratory effort is even, unlabored, Respiratory pattern is regular, symmetrical. Derm: Skin is intact, is healthy with good turgor, Skin is pink, warm \T\ dry. Musculoskeletal: Capillary refill < 3 seconds, Range of motion: intact in all extremities. Vital Signs: 17:26 BP 135 / 101; Pulse 102; Resp 20; Temp 98.8; Pulse Ox 98% ; Height 5 ft. 11 in. (180.34 ll1 cm); Pain 10/10; ED Course: 17:22 Patient arrived in ED. mr 17:22 Luciano Travis DO is Private Physician. mr 17:29 Triage completed. ll1 17:29 Arm band placed on Patient placed in an exam room, on a stretcher. ll1 17:30 Christine Angeles [facility]C [facility]. snw 17:30 Konstantin Patel MD is Attending Physician. snw 17:32 Celso Odom, RN is Primary Nurse. em 17:40 Patient has correct armband on for positive identification. Bed in low position. Call em light in reach. 18:42 Luciano Travis DO is Referral Physician. snw 18:54 No provider procedures requiring assistance completed. Patient did not have IV access em during this emergency room visit. Administered Medications: 17:43 Drug: Ativan 1 mg Route: PO; em 18:42 Follow up: Response: No adverse reaction em 17:45 Drug: Phenergan 25 mg Route: IM; Site: right deltoid; em 18:42 Follow up: Response: No adverse reaction; Marked relief of symptoms em Outcome: 18:43 Discharge ordered by . snw 19:06 Discharged to home ambulatory. em 19:06 Condition: good 19:06 Discharge instructions given to patient, Instructed on discharge instructions, follow up and referral plans. medication usage, Demonstrated understanding of instructions, follow-up care, medications, Prescriptions given X 1. 19:06 Patient left the ED. em Signatures: Christine Angeles FNP-C SURGERY CONSULTANT-Jason Miracle Moyer mr Celso Odom RN RN em Avery Gil RN RN ll1 Corrections: (The following items were deleted from the chart) 17:34 17:26 Chief complaint: Patient states: Reports allergic reaction for a few days. + STATON, ll1 agitated, restless now. Being treated for thrush, which is getting worse. ll1
[2019-11-21 19:23] VITALS: BP 135/101; TEMP 98.8; O2SAT 98
== END 2019-11-21 19:06 | disposition home or self-care (01) ==
LOC: ER 17:21
DX: F41.9 Anxiety disorder, unspecified (principal); I10 Essential (primary) hypertension; Z91.09 Other allergy status, other than to drugs and biological substances; Z88.1 Allergy status to other antibiotic agents; Z88.8 Allergy status to other drugs, medicaments and biological substances
CPT/HCPCS: 96372; 99283; J2550

== ENCOUNTER 2020-03-07 10:36 | Emergency (ER) | payer OTHER ==
--- OUTSIDE RECORDS SUMMARY | 2020-03-07 10:56 | XMS REPORT | Clinical Summary ---
:1960 Author Organization [facility] Address [address] [place] [address] Care Team Providers Name Role Phone Asked, [...] Michelle geon: Saqib Wheeler MD; Locat ion: [facility] Aer[facility] Engineer Invasive Locatio n; Service: Cardiovascular; Laterality: N/A; CARDIAC CATHETERIZATION 12/20/2015 N/A Procedur e: Cv arteriogram carotid single; Surgeon : Saqib Wheeler MD; Location: [facility] Invasive Locatio n; Service: Cardiovascular; Laterality: N/A; [...] Not on file Results Not on fileafter 03/07/2019 Insurance Payer Benefit Plan / Subscriber ID Effective Dates Phone Addre ss Type Group BCBS BCBS CHOICE [id number] 2013-Present PPO PPO/FEDERAL EMPL PPO CVCP CVCP BCBS [id number] 2013-Present [address] [place] [address] Advance Directives For more information, please contact: [phone] Type Date Recorded 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
--- OUTSIDE RECORDS SUMMARY | 2020-03-07 10:57 | XMS REPORT | Continuity of Care Document ---
:1960 Author Organization [facility] Care Team Providers Name Role Phone [facility] Unavailable Un available Problems Problem Status Onset Classification Date Comments Sour e Date Reported H92.01 - Active 11/11/19 OPID "OTALGIA, RIGHT 20 [place] EAR" Discharge 04/01/19 04/04/2016 [place] Diagnosis: Pain 17 [place] and swelling of right knee RIGHT KNEE PAIN Active 04/01/19 S ugar 17 [place] STRESS URINARY Active 05/25/19 Nazario gar INCONTINENCE-N39 16 [place] .3 / URET R31.2 - OTHER Active 04/24/19 Memori al MICROSCOPIC 16 [facility] HEMATURIA OPID [place] 727.00 - Active 08/30/19 OPID SG SYNOVITIS NOS 12 [facility] Anxiety Resolved Problem 11/26/2019 OPID (finding) [place] [place] Chronic Resolved Problem 11/26/2019 OPID obstructive lung [facility], disease [place] (disorder) Depressive Resolved Problem 11/26/2019 OPID disorder [place] (disorder) [place] Diabetes Resolved Problem 11/26/2019 OPID mellitus [place], H (disorder) [place] Endometriosis Resolved Problem 11/26/2019 OP ID (disorder) [place], [place] Fibromyositis Resolved Problem 11/26/2019 OP ID (disorder) [place], [place] Hypertensive Resolved Problem 11/26/2019 OPI D disorder, [place], H systemic [place] arterial (disorder) Lumbar Resolved Problem 11/26/2019 OPID spondylosis [place] , (disorder) [place] Motion sickness Resolved Problem 11/26/2019 OPID (disorder) [place], [place] Neuropathy Resolved Problem 11/26/2019 OPID (disorder) [facility] [place] Bladder muscle Resolved Problem 11/26/2019 [facility], overactive [place] (disorder) Rheumatoid Resolved Problem 11/26/2019 OPID arthritis [place] Arash (disorder) [place] Sleep apnea Resolved Problem 11/26/2019 OPID (finding) [place] Arash [place] Medications Medication Details Route Status Patient Ordering Order Source Instructions Provider Date Barbara Notes: (Same No Longer as: Barbara) Active 2015 [place] Dexilant 60 mg, Route: No Longer PO, Drug form: Active 2015 [place] DRC, Daily, [place] Dosing Weight 134.5, kg, Start date: 08/11/15 9:00:00 CDT, Duration: 30 day, Stop date: 09/09/15 9:00:00 CDT Nuvigil 250 mg, Route: No Longer PO, Drug form: Active 2015 [place] TAB, Daily, [place] Dosing Weight 134.5, kg, Start date: 08/11/15 9:00:00 CDT, Duration: 30 day, Stop date: 09/09/15 9:00:00 CDT Abilify 20 mg, Route: No Longer PO, Drug form: Active 2015 [place] TAB, Daily, [place] Dosing Weight 134.5, kg, Start date: 08/11/15 9:00:00 CDT, Duration: 30 day, Stop date: 09/09/15 9:00:00 CDT Deplin 15 mg, Route: No Longer PO, Drug form: Active 2015 [place] CAP, Daily, [place] Dosing Weight 134.5, kg, Start date: 08/11/15 9:00:00 CDT, Duration: 30 day, Stop date: 09/09/15 9:00:00 CDT Hydrochlorothiazide 1 tab, Route: No Longer 12.5 MG / Lisinopril PO, Drug Form: Active 2015 [place] 10 MG Oral Tablet TAB, Dosing La nd Weight 134.5, kg, Daily, Start date: 08/11/15 9:00:00 CDT, Duration: 30 day, Stop date: 09/09/15 9:00:00 CDT Savella 50 mg, Route: Inactive PO, Drug form: 2015 [place] TAB, BID, Land Dosing Weight 134.5, kg, Start date: 08/10/15 17:00:00 CDT Ketorolac 4 days Inactive MEDICATION 2016 [place] WASTE [place] Product Size: 30 mg Product Wasted: _15__ mg Insulin, Aspart, Notes: Roll in Inactive Human palms of hands 2016 [place] gently; Do [place] not shake vigorously. (Same as: NovoLOG) "single patient use only" WASTE: F/P - Black; E - Municipal Trash Bin Stable for 28 days at room temperature. Expires in days from Date Levalbuterol Notes: SEE RT Inactive DOCUMENTATION 2016 [place] (Same [place] as:Xopenex) Non-Formulary Naloxone Notes: Same as Inactive Narcan 2016 [place] Meperidine Notes: (Same Inactive as: Demerol) 2016 [place] "Use Land Precaution in Elderly, Seizure disorders, and Renal impairment&quo t; Promethazine Notes: Do not Inactive give IV push. 2016 [place] (Same as: Land Phenergan) Dexamethasone Notes: Inactive Concentration: 2016 [place] 4mg/ml [place] Ondansetron Notes: (Same Inactive as: Zofran) 2016 [place] MEDICATION Land WASTE Product Size: 4 mg Product Wasted: ___ mg Diphenhydramine Notes: (Same Inactive as: Benadryl) 2015 [place] Albuterol 0.83 MG/ML Notes: SEE RT Inactive 07/13 Inhalant Solution DOCUMENTATION 2016 [place] (Same as: Land Proventil) Atropine Notes: Inactive MEDICATION 2016 [place] WASTE [place] Product Size: 0.4 mg Product Wasted: _0.2__ mg Glycopyrrolate Notes: (Same Inactive as: Robinul) 2016 [place] Phenylephrine Notes: Same Inactive as: 2016 [place] Erik-Synephrine [place] Albuterol 0.833 MG/ML Notes: (Same Inactive 07/13 / Ipratropium [place] as: Duoneb) 2016 [place] 0.167 MG/ML Inhalant [place] Solution [DuoNeb] celecoxib Notes: NSAID. Inactive Please check 2016 [place] indication. [place] Not for seizure. (Same As: CeleBREX) 72 HR Scopolamine Notes: Change Inactive 0.0139 MG/HR patch every 72 2015 [place] Transdermal Patch hours (Same [place] as: Transderm-Scop ) Midazolam Notes: (Same Inactive as: Versed) 2016 [place] MEDICATION Land WASTE Product Size: 2 mg Product Wasted: _1__ mg Ephedrine Notes: (Same Inactive as: ePHEDrine 2016 [place] Sulfate) Land Flumazenil Notes: (Same Inactive as: Romazicon) 2015 [place] Calcium Chloride 1,000 mL, Inactive 0.0014 MEQ/ML / Rate: 125 2015 [place] Potassium Chloride ml/hr, Infuse [place] 0.004 MEQ/ML / Sodium over: 8 hr, Chloride 0.103 MEQ/ML Route: IV, / Sodium Lactate Dosing Weight 0.028 MEQ/ML 134.5 kg, Injectable Solution Total Volume: 1,000, Start date: 08/10/15 11:29:00 CDT, Duration: 30 day, Stop date: 09/09/15 11:28:00 CDT Hydralazine Notes: (Same Inactive as: 2015 [place] Apresoline) Land Push over 5 minutes Labetalol Notes: (Same Inactive as: Normodyne, 2016 [place] Trandate) Push Land over 2 minutes Give bolus over 2-3 minutes. Metoprolol Notes: (Same Inactive as: Lopressor) 2015 [place] Push over 2 [place] minutes Morphine Notes: (Same Inactive as:MORPhine 2015 [place] Sulfate) Land Fentanyl Notes: (Same Inactive as: Sublimaze) 2016 [place] Preservative [place] free. Oxycodone Notes: (Same Inactive as: 2015 [place] Roxicodone) [place] Hydromorphone Notes: (Same Inactive as: Dilaudid) 2015 [place] Acetaminophen Notes: Infuse Inactive over 15 2016 [place] minutes Do [place] not exceed 4gm/day of acetaminophen MEDICATION WASTE Product Size: 1000 mg Product Wasted: ___ mg Ibuprofen Notes: (Same Inactive as: Motrin) 2015 [place] "Do Not Crush" [place] Take with food. Acetaminophen Notes: Do not Inactive exceed 4 2015 [place] gm/day. (Same [place] as: Tylenol) Hydromorphone Notes: (Same Inactive as: Dilaudid) 2015 [place] Acetaminophen 325 MG Notes: (Same Inactive 08/09 / Hydrocodone as: [place] 2016 [place] Bitartrate 5 MG Oral 325/5) Do not Land Tablet exceed 4gm/day of acetaminophen. Tramadol Notes: Not to Inactive exceed 2015 [place] 400mg/day. Land (Same As: Ultram) ondansetron (ANES) Route: IV, Inactive H Drug form: 2015 [place] INJ, ONCE, [place] Stop date: 08/10/15 11:11:00 CDT phenylephrine (ANES) Route: IV, Inactive Drug form: 2015 [place] INJ, ONCE, [place] Stop date: 08/10/15 11:01:00 CDT succinylcholine Route: IV, Inactive (ANES) Drug form: 2015 [place] INJ, ONCE, [place] Stop date: 08/10/15 10:45:00 CDT propofol (ANES) Route: IV, Inactive Drug form: 2015 [place] INJ, ONCE, [place] Stop date: 08/10/15 10:45:00 CDT lidocaine (ANES) Route: IV, Inactive Drug form: 2015 [place] INJ, ONCE, [place] Stop date: 08/10/15 10:45:00 CDT fentaNYL (ANES) Route: IV, Inactive Drug form: 2015 [place] INJ, ONCE, [place] Stop date: 08/10/15 10:45:00 CDT midazolam (ANES) Route: IV, Inactive Drug form: 2015 [place] SOLN, ONCE, Land Stop date: 08/10/15 10:45:00 CDT ePHEDrine (ANES) Route: IV, Inactive Drug form: 2015 [place] INJ, ONCE, [place] Stop date: 08/10/15 10:40:00 CDT ceFAZolin (ANES) Route: IV, Inactive Drug form: 2016 [place] INJ, ONCE, [place] Stop date: 08/10/15 10:34:00 CDT LR 1000 mL INJ (ANES) Route: IV, Inactive Total Volume: 2015 [place] 1,000, Start Land date: 08/10/15 9:51:00 CDT, Stop date: 08/10/15 10:51:00 CDT Insulin, Aspart, Notes: Roll in Inactive Human palms of hands 2016 [place] gently; Do [place] not shake vigorously. (Same as: NovoLOG) "single patient use only" WASTE: F/P - Black; E - Municipal Trash Bin Stable for 28 days at room temperature. Expires in days from Date 200 ACTUAT Albuterol Notes: Same Inactive 0.09 MG/ACTUAT as: Ventolin 2015 [place] Metered Dose Inhaler HFA WASTE: Land Aerosol - Return to Pharmacy Calcium Chloride 1,000 mL, Inactive 0.0014 MEQ/ML / Rate: 25 2015 [place] Potassium Chloride ml/hr, Infuse [place] 0.004 MEQ/ML / Sodium over: 40 hr, Chloride 0.103 MEQ/ML Route: IV, / Sodium Lactate Dosing Weight 0.028 MEQ/ML 134.091 kg, Injectable Solution Total Volume: 1,000, Start date: 08/10/15 8:01:00 CDT, Duration: 30 day, Stop date: 09/09/15 8:00:00 CDT BD Normal Saline Notes: (Same Inactive 08/09/ H Flush as: BD 2015 [place] Posiflush) [facility] Notes: Same Inactive as: Ancef 2015 [place] Deplin 15 mg oral 15 mg = 1 cap, Active capsule PO, Daily, 0 2015 [place] Refill(s) [place] armodafinil 250 MG 250 mg = 1 Active Oral Tablet [Nuvigil] tab, PO, 2016 [place] Daily, # 30 [place] tab, 0 Refill(s) Suvorexant 10 MG Oral 10 mg = 1 tab, Active Tablet [Belsomra] PO, Bedtime, 0 2015 [place] Refill(s) [place] ezetimibe 10 MG Oral 10 mg = 1 tab, Active 06 3/ MH Tablet [Zetia] PO, Daily, 0 2015 [place] Refill(s) [place] Milnacipran 50 mg = 1 tab, Active hydrochloride 50 MG PO, BID, # 60 2016 [place] Oral Tablet [Savella] tab, 3 [place] Refill(s) aripiprazole 20 MG 20 mg = 1 tab, Active Oral Tablet [Abilify] PO, Daily, 0 2015 [place] Refill(s) [place] Tresiba FlexTouch SUB-Q, Daily, Active 0 Refill(s) 2015 [place] 0.65 ML exenatide 2 mg, SUB-Q, Active M H 3.08 MG/ML Prefilled qWeek, # 4 ea, 2016 [place] Syringe [Bydureon] 0 Refill(s) L and dexlansoprazole 60 MG 60 mg = 1 cap, Active Enteric Coated PO, Daily, 0 2015 [place] Capsule [Dexilant] Refill(s) [place] golimumab 12.5 MG/ML IV, q4wk, 0 Active Injectable Solution Refill(s) 2015 Nazario gar [Simponi Aria] Land Hydrochlorothiazide 1 tab, PO, Active H 12.5 MG / Lisinopril Daily, 0 2015 Nazario gar 10 MG Oral Tablet Refill(s) Land solifenacin succinate 10 mg = 1 tab, Active 10 MG Oral Tablet PO, Daily, 0 2015 [place] [VESICARE] Refill(s) Land pilocarpine 7.5 mg 7.5 mg = 1 Active oral tablet tab, PO, TID, 2016 [place] # 90 tab, 0 [place] Refill(s) cyclobenzaprine 10 mg 10 mg = 1 tab, Active oral tablet PO, TID, PRN 2016 [place] for spasms, # Land 30 tab, 0 Refill(s) Hydroxychloroquine 200 mg, PO, Active 08/02/ M H Daily, 0 2015 [place] Refill(s) [place] celecoxib 200 MG Oral 200 mg = 1 Active Capsule [Celebrex] cap, PO, BID, 2016 [place] 0 Refill(s) [place] Methotrexate 0 Refill(s) Active 2015 [place] Methotrexate Sodium, INTRATHECAL, Active Preservative Free 25 ONCE, 0 2015 [place] mg/mL injectable Refill(s) [place] solution Folic Acid 1 MG Oral 1 mg = 1 tab, Active 08/02 Tablet PO, Daily, 0 2015 [place] Refill(s) [place] Allergies, Adverse Reactions, Alerts Substance Category Reaction Severity Reaction Status Date Comments S ource type Reported Adhesive Assertion Drug Active OP ID allergy [place] Latex Assertion Drug Active OPI D allergy [place] Lyrica Assertion Drug Active OPI D allergy [place] Immunizations No Data Provided for This Section Results Order Name Results Value Reference Date Interpretation Comments Noni rce Range BODY FLUIDS Eos BF 0 04/01 [place] BODY FLUIDS Macrophage BF 0 04/01 [place] BODY FLUIDS Color BF Yellow Colorless 04/01 MH (04/01/16 2:20 PM) /2016 [place] BODY FLUIDS CellCnt BF Other 04/01 MH Type (04/01/16 2:20 PM) [place] BODY FLUIDS Clarity BF Slight Cloudy Clear 04/01 (04/01/16 2:20 PM) [place] BODY FLUIDS RBC BF 5375 04/01 [place] BODY FLUIDS WBC BF 980 04/01 [place] BODY FLUIDS Lymph BF 44 04/01 [place] BODY FLUIDS Segs BF 56 04/01 [place] HEMATOLOGY WBC 6.1 3.7 - 10.4 04/01 [place] HEMATOLOGY MPV 7.9 7.4 - 10.4 04/01 [place] HEMATOLOGY Platelet 226 133 - 450 04/01 [place] HEMATOLOGY MCH 28.5 27.0 - 04/01 31.0 [place] HEMATOLOGY RDW 14.8 11.5 - 04/01 14.5 [place] HEMATOLOGY MCHC 33.2 32.0 - 04/01 36.0 [place] HEMATOLOGY Hct 30.8 36.0 - 04/01 48.0 [place] HEMATOLOGY RBC 3.59 4.20 - 04/01 MH 5.40 /2016 [place] HEMATOLOGY Hgb 10.2 12.0 - 04/01 16.0 [place] HEMATOLOGY MCV 85.9 80.0 - 02 MH 98.0 /2017 [place] HEMATOLOGY Eosinophils # 0.1 0.0 - 0.5 04/01 [place] HEMATOLOGY Monocytes # 0.4 0.0 - 0.8 04/01 [place] HEMATOLOGY Segs-Bands # 4.0 1.5 - 8.1 04/01 [place] HEMATOLOGY Lymphocytes # 1.5 1.0 - 5.5 04/01 [place] HEMATOLOGY Basophils # 0.0 0.0 - 0.2 04/01 [place] HEMATOLOGY Lymphocytes 25.0 20.0 - 02 MH 40.0 /2016 [place] HEMATOLOGY Monocytes 6.9 2.0 - 12.0 04/01 [place] HEMATOLOGY Segs 65.5 45.0 - 04/01 MH 75.0 /2017 [place] HEMATOLOGY Basophils 0.6 0.0 - 1.0 04/01 [place] HEMATOLOGY Eosinophils 2.0 0.0 - 4.0 04/01 [place] HEMATOLOGY Sed Rate 84 0 - 20 04/01 [place] CHEM PANEL Lactic Acid 1.3 0.5 - 2.2 04/01 MH Lvl /2016 [place] CHEM PANEL eGFR 91 04/01 Comment: The [place] eGFR is Land calculated using the CKD-EPI formula. In most young, healthy individuals the eGFR will be >90 mL/min/1.73m2 . The eGFR declines with age. An eGFR of 60-89 may be normal in some populations, particularly the elderly, for whom the CKD-EPI formula has not been extensively validated. Use of the eGFR is not recommended in the following populations:< br/>
Jo viduals with unstable creatinine concentration s, including patients and those with serious co-morbid conditions.<b r/>
Patie nts with extremes in muscle mass or diet.

The data above are obtained from the National Kidney Disease Education Program (NKDEP) which additionally recommends that when the eGFR is used in patients with extremes of body mass index for purposes of drug dosing, the eGFR should be multiplied by the estimated BMI. CHEM PANEL B/C Ratio 19 6 - 25 04/01 [place] CHEM PANEL A/G Ratio 0.6 0.7 - 1.6 04/01 [place] CHEM PANEL Globulin 4.7 2.7 - 4.2 04/01 [place] CHEM PANEL AGAP 12.0 10.0 - 04/01 20.0 /2016 [place] CHEM PANEL Bili Total 0.2 0.2 - 1.3 04/01 [place] CHEM PANEL Alk Phos 116 39 - 136 04/01 [place] CHEM PANEL CO2 30 24 - 32 04/01 [place] CHEM PANEL Chloride Lvl 99 95 - 109 04/01 [place] CHEM PANEL BUN 14 7 - 22 04/01 [place] CHEM PANEL Glucose Lvl 128 70 - 99 04/01 [place] CHEM PANEL Creatinine 0.74 0.50 - 04/01 Lvl 1.40 [place] CHEM PANEL Potassium Lvl 5.0 3.5 - 5.1 04/01 [place] CHEM PANEL Sodium Lvl 136 135 - 145 04/01 [place] CHEM PANEL Total Protein 7.7 6.4 - 8.4 04/01 [place] CHEM PANEL Calcium Lvl 8.7 8.5 - 10.5 04/01 [place] CHEM PANEL ALT 21 0 - 65 04/01 [place] CHEM PANEL Albumin Lvl 3.0 3.5 - 5.0 04/01 [place] CHEM PANEL AST 27 0 - 37 04/01 [place] IMMUNOLOGY C-REACTIVE 44.4 <=2.9 mg/L 04/01 [place] CHEM PANEL eGFR 79 08/02 Result Comment: The [place] eGFR is Land calculated using the CKD-EPI formula. In most young, healthy individuals the eGFR will be >90 mL/min/1.73m2 . The eGFR declines with age. An eGFR of 60-89 may be normal in some populations, particularly the elderly, for whom the CKD-EPI formula has not been extensively validated. Use of the eGFR is not recommended in the following populations:< br/>
Jo viduals with unstable creatinine concentration s, including patients and those with serious co-morbid conditions.<b r/>
Patie nts with extremes in muscle mass or diet.

The data above are obtained from the National Kidney Disease Education Program (NKDEP) which additionally recommends that when the eGFR is used in patients with extremes of body mass index for purposes of drug dosing, the eGFR should be multiplied by the estimated BMI. CHEM PANEL Sodium Lvl 144 135 - 145 08/02 [place] CHEM PANEL Chloride Lvl 104 95 - 109 08/02 [place] CHEM PANEL Potassium Lvl 4.6 3.5 - 5.1 08/02 [place] CHEM PANEL Calcium Lvl 9.4 8.5 - 10.5 08/02 [place] CHEM PANEL CO2 31 24 - 32 08/02 [place] CHEM PANEL Glucose Lvl 126 70 - 99 08/02 [place] CHEM PANEL Creatinine 0.84 0.50 - 08/02 MH Lvl 1.40 [place] CHEM PANEL BUN 17 7 - 22 08/02 [place] CHEM PANEL AGAP 13.6 10.0 - 08/02 MH 20.0 [place] HEMATOLOGY MCH 28.8 27.0 - 08/02 MH 31.0 [place] HEMATOLOGY Hgb 12.1 12.0 - 08/02 MH 16.0 /2015 [place] HEMATOLOGY RBC 4.20 4.20 - 08/02 MH 5.40 /2015 [place] HEMATOLOGY MCV 89.2 80.0 - 08/02 MH 98.0 [place] HEMATOLOGY Hct 37.5 36.0 - 08/02 MH 48.0 /2015 [place] HEMATOLOGY WBC 7.4 3.7 - 10.4 08/02 [place] HEMATOLOGY MCHC 32.3 32.0 - 08/02 MH 36.0 [place] HEMATOLOGY RDW 14.3 11.5 - 08/02 MH 14.5 /2015 [place] HEMATOLOGY MPV 9.3 7.4 - 10.4 08/02 [place] HEMATOLOGY Platelet 193 133 - 450 08/02 [place] HEMATOLOGY Basophils # 0.0 0.0 - 0.2 08/02 [place] HEMATOLOGY Segs 61.4 45.0 - 08/02 MH 75.0 /2015 [place] HEMATOLOGY Lymphocytes 30.9 20.0 - 08/02 MH 40.0 [place] HEMATOLOGY Lymphocytes # 2.3 1.0 - 5.5 08/02 [place] HEMATOLOGY Monocytes # 0.4 0.0 - 0.8 08/02 [place] HEMATOLOGY Segs-Bands # 4.5 1.5 - 8.1 08/02 [place] HEMATOLOGY Basophils 0.5 0.0 - 1.0 08/02 [place] HEMATOLOGY Monocytes 5.8 2.0 - 12.0 08/02 [place] HEMATOLOGY Eosinophils 1.4 0.0 - 4.0 08/02 [place] HEMATOLOGY Eosinophils # 0.1 0.0 - 0.5 08/02 [place] IMMUNOLOGY HIV 1/2 Ab Negative Negative 08/02 *NA* [place] (08/03/15 9:38 AM) [facility] IMMUNOLOGY Hep C Ab Negative 08/02 *NA* [facility] (08/03/15 9:38 AM) [facility] Pathology Reports No Data Provided for This Section Diagnostic Reports Report Value Date Source Brain/IAC's w/wo contrast [facility]ED[facility]: [facility] [place] [facility] Exam: MR Head Without and With Contrast Exam date and time: 11/24/2019 10:03 AM Age: 59 years old Clinical indication: Otalgia , right ear; Additional info: H92.01 otalgia, right ear r13.10 dysphagia, unspec ified 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 3D rendering (Not supervised by radiologist): MO P and/or 3D reconstructed images were created by the technologist. Contrast material: DOTAREM; Contrast volume: 20 ml; Contrast route: INTRAVENOUS (IV); COMPARISON: No relevant prior studies available. FINDINGS: Brain: There is no acute cortical infarct, pare nchymal hemorrhage or an intra-axial mass. Sellar and parasellar structu res are normal. There is no cerebellar tonsillar ectopia. There is normal f low from the 4th portions of both vertebral arteries, the basilar art bill and intracranial carotid arteries. The cochlear, vestibule and 7th and 8th nerve fa scicles are normal. Cerebral ventricles: Normal. No ventriculomegaly . Bones/joints: Unremarkable. The temporomandibul ar joints and pterygoid fossa are normal. There is no enhancing intraparenchymal or leptom eningeal abnormality. There is normal enhancement the cavernou s sinus, dural sinuses and deep venous system. Paranasal sinuses: There is a minute mucous ret ention cyst in the left sphenoid sinus. Mastoid air cells: Normal as visualized. No mast oid effusion. Orbits: Unremarkable. Soft tissues: Unremarkable. IMPRESSION: There is no acute cortical infarct, parenchymal hemorrhage or an intra-axial mass. The cochlear, vestibule and 7th and 8th nerve fa scicles are normal. The temporomandibular joints are normal. Meckel's cave and gasserian ganglion are normal. There is normal enhancement the cavernous sinus. Ruddy Pool MD On 11/24/2019 11:57:21; VR-B [id number] US guide percutaneous PROCEDURES: 04/01/2016 MH [place] L and abscess drain 1. Right knee arthrocentesis 2. Ultrasound guidance 3. Moderate sedation COMPARISON: None SEDATION: Local lidocaine 1%. TECHNIQUE AND FINDINGS: Sterile barrier technique wa s followed including: Cap and mask, sterile gown, sterile gloves, and large sterile sheet. Hand hygiene, and 2% chlorhexidine for cutaneous antisepsis (or acceptable alternative antiseptics, per current guideline). Written informed consent was obtained. The patient was draped and prepped in usual sterile fashion and placed supine on the table. 1% lidocaine was used to anesthetize the skin. Ultrasound was performed to localize the suprapatellar joint space. Using ultrasound guidance a 5 Chinese sheathed needle was advanced into the right knee joint space. Aspiration revealed 3 cc clear, ser ous, synovial fluid. Samples were obtained for gram stain and cultures. Subsequently the catheter was removed. No immediate complication was seen. Ultrasound evaluation of the posterior knee/popliteal fossa reveals a small hematoma. IMPRESSION: 1. Ultrasound guided right knee arthrocentesis. 3 mL of clear, serous synovial fluid aspirated and sample sent for evaluation. 2. Small hematoma noted rosaura g the posterior knee soft tissues/popliteal fossa -- this was not drained, as the hematoma is semi-solid. 3. No abscess identified. Ext Lower Venous Doppler Exam: Right lower extremity Doppler venous ultrasound. 04/01/2016 [place] Unilat US Reason for Exam: Pain and swelling right lower e xtremity Comparison Exam: None Discussion: Real-time grayscale, color D oppler imaging, and spectral waveform analysis was performed of the right lower extremity deep venous system. There are no filling defects or lack of compressibility seen wit hin the deep venous system t o suggest DVT. The waveforms are within normal limits and respond appropriately to augmentation. Impression: 1. Negative right lower extremity Doppler venou s ultrasound for DVT. Retroperitoneal Complete EXAM: 04/28/2015 [facility] US Renal ultrasound. INDICATION: Hematuria. TECHNIQUE: Grayscale and Doppler sonogram of the kidneys. COMPARISON: None. FINDINGS: Right kidney: Length: 11.6 cm. Cortical thickness: 2.9 cm. Hydronephrosis: Negative. Echogenicity: Within normal limits. Other: None. Left kidney: Length: 11.6 cm. Cortical thickness: 2 cm. Hydronephrosis: Negative. Echogenicity: Within normal limits. Other: 1 or 2 millimetric re nal parenchymal bright reflectors which are nonspecific but could represent nonobstructing calculi. Urinary bladder: Lumen: Unremarkable. Ureteral jets: Visualized bilaterally. Aorta: Not well evaluated. Common iliac artery origins: Not well evaluated . IVC: Visualized portions are unremarkable. Other: None. IMPRESSION: 1. Possible millimetric, nonobstructing left renal calculi. No hydronephrosis. Consultation Notes No Data Provided for This Section Discharge Summaries No Data Provided for This Section History and Physicals No Data Provided for This Section Vital Signs Vital Sign Value Date Comments Source Respitory Rate 18 04/01/2016 [place] Systolic (mm Hg) 134 04/01/2016 [place] Diastolic (mm Hg) 72 04/01/2016 [place] and Temperature Oral (F) 99.1 F 04/01/2016 [place] Heart Rate 85 04/01/2016 [place] Respitory Rate 18 04/01/2016 [place] Heart Rate 90 04/01/2016 [place] Temperature Oral (F) 98.5 F 04/01/2016 [place] Systolic (mm Hg) 130 04/01/2016 [place] Diastolic (mm Hg) 79 04/01/2016 [place] and Weight 135.955 04/01/2016 [place] Heart Rate 91 08/10/2015 [place] Respitory Rate 17 08/10/2015 [place] Systolic (mm Hg) 126 08/10/2015 MH [place] Diastolic (mm Hg) 61 08/10/2015 [place] L and Respitory Rate 16 08/10/2015 [place] Heart Rate 81 08/10/2015 [place] Systolic (mm Hg) 124 08/10/2015 [place] Diastolic (mm Hg) 62 08/10/2015 [place] and Heart Rate 80 08/10/2015 [place] Respitory Rate 13 08/10/2015 [place] Systolic (mm Hg) 120 08/10/2015 MH [place] Diastolic (mm Hg) 57 08/10/2015 [place] and BMI Calculated 41.36 08/10/2015 [place] Weight 134.5 08/10/2015 [place] Temperature Oral (F) 98.5 F 08/03/2015 [place] Height 180.34 cm 08/03/2015 [place] Encounters Location Location Encounter Encounter Reason Attending ADM NE Stat Source Details Type Number For Provider Date Date Visit OD [id number] 727.00 - ARIES 09/01 Active M H [facility] Outpt Diag [id number] [place] 04/27 04/28 [facility] Outpatient Services [facility] /2015 [facility] [facility] Day [id number] 08/09 M H [facility] [place] [facility] /2015 [facility] [place] [facility] Emergency [id number] Julio C [place] 04/01 04/01 [place] /2016 [facility] [place] [facility] Outpt Diag [id number] Rena 11/23 11/24 [facility] [place] /2019 [facility] [place] Procedures Procedure Code Date Perfomer Comments Source CHILO - Endometrial 368917658 [facility] laser ablation [place], H [place] Limbal stem cell 303085563 OPID transplantation [facility] ORIF - Open reduction 86974114 OPID and internal fixation [facility] of fracture [place] Tendon operation [id number] [facility] Assessment and Plan No Data Provided for This Section Plan of Care No Data Provided for This Section Social History Social History Date Source Social History TypeResponse 08/03/2015 [place] Substance Abuse Use: None. Exercise 1 Employment/School Status: Unemployed. Alcohol Never Smoking Status Never smoker; Exposure to Tobacco Smoke None; Cigarette Smoking Last 365 Days No; Reg Smoking Cessation Counseling No 1none Social History TypeResponse 08/03/2015 [facility] [place] Alcohol Never Employment/School Status: Unemployed. Exercise 1 Substance Abuse Use: None. Smoking Status Never smoker; Exposure to Tobacco Smoke None; Cigarette Smoking Last 365 Days No; Reg Smoking Cessation Counseling No entered on: 04/01/16 1none No data available for this 04/29/2015 INSHA isaac section Family History No Data Provided for This Section Advance Directives No Data Provided for This Section Functional Status No Data Provided for This Section
--- OUTSIDE RECORDS SUMMARY | 2020-03-07 11:00 | XMS REPORT ---
:[address] [facility] Address [address] [place], [address] [place] [address] Care Team Providers Name Role Phone Travis Unavailable [phone] PROBLEMS Type Condition ICD9-CM SGR41-AV Onset Condition SNOMED Code Notes Code Code Dates Status Problem Diabetic E11.40 Active 097804065 neuropathy Problem Fibromyalgia M79.7 Active 424996800 Problem Insomnia G47.00 Active 075525945 Problem Morbid obesity E66.01 Active 023401013 Problem Vitamin D E55.9 Active 20847635 deficiency Problem Fatty liver K76.0 Active 668990124 Problem Rheumatoid M06.9 Active 04181066 arthritis Problem GERD without K21.9 Active 679175059 esophagitis Problem Benign essential I10 Active 44767269 HTN Problem Iron deficiency D50.0 Active 567029170 anemia due to chronic blood loss Problem Hyperlipidemia, E78.2 Active 515057573 mixed Problem Overactive bladder N32.81 Active 941065169 Problem Incontinence of R15.9 Active 96436077 feces, unspecified fecal incontinence type Problem 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 209812171 sleep disorder, shift work type Problem Restless leg G25.81 Active 82745848 syndrome Problem Urinary R32 Active 176850356 incontinence, unspecified type Problem Ankylosing M45.0 Active 4430373 spondylitis of multiple sites in spine Problem Bipolar disorder F31.9 Active 18015433 Problem Diabetes type 2, E11.9 Active 929039890 controlled Problem Obstructive sleep G47.33 Active 51439577 apnea Problem Primary M17.0 Active 163175583 osteoarthritis of both knees Problem Chronic J44.9 Active 86902873 obstructive pulmonary disease, unspecified COPD type Problem Psoriatic L40.50 Active 485506799 arthritis ALLERGIES Allergen (clinical drug Drug/Non Drug Allergy Reaction Allergy Type Onset Date Status ingredient) documented on EMR glimepiride Glimepiride([facility] Unknown Drug Allergy Active Code:[address]-81) metformin Metformin HCl([facility] Unknown Drug Allergy Activ e Code:[address]-78) pregabalin Lyrica([facility] Unknown Drug Allergy Active Code:[address]-75) canagliflozin Invokana([facility] Unknown Drug Allergy Active Code:[address]-59) ENCOUNTERS from 1960 to 2020-02-23 Encounter Location Date Provider Diagnosis [facility] TxtFeedback [address] [facility] Feb, [facility] picmd chest pain Family Medicine [address] [place], R07.89 ; [place] [address] type 2, contro lled E11.9 ; Benign essential HTN I 10 ; Hyperlipidemia, mixed E78.2 ; Obstruc tive sleep apnea G47 .33 ; Rheumatoid arth ritis M06.9 ; Bipolar disorder F31.9 ; Ankylosing spondylitis of multiple sites in spine M45.0 ; I deejay deficiency anem ia due to chronic bloo d loss D50.0 ; Insomni a G47.00 ; Overac tive bladder N32.81 ; GERD without esophag itis K21.9 ; Motion sickness, initi al encounter T75.3 XXA ; Polyp of colon, unspecified par t of colon, unspecif ied type K63.5 ; Psoriatic arthr itis L40.50 ; Incont inence of feces, unspe cified fecal incontine nce type R15.9 and Urinary inconti nence, unspecified typ e R32 IMMUNIZATIONS Vaccine Route Administration Date Status Kenalog (Triamcinolone) IM Intramuscular Nov 02, 2019 Adminis tered SOCIAL HISTORY Tobacco Use: Social History Observation Description Date Details (start date - stop date) Never Smoker Sex Assigned At : Social History Observation Description Sex Assigned At Unknown PHQ9 Question Answer Notes Little interest or pleasure in doing things Nearly every day Feeling down, depressed, or hopeless Nearly every day Trouble falling or staying asleep or sleeping too Nearly alpesh ry day much Feeling tired or having little energy More than half the day s Poor appetite or overeating Several days Feeling bad about yourself, or that you are a Nearly every d ay failure, or have let yourself or your family down Trouble concentrating on things, such as reading More than h nursing home the days the newspaper or watching television Moving or speaking so slowly that other people Several days could have noticed; or the opposite, being so fidgety or restless that you have been moving around a lot more than usual Total Score 18 Interpretation Moderately severe depression Thoughts that you would be better off or of Not at all hurting yourself in some way Alcohol Screen Question Answer Notes Did you have a drink containing alcohol in the past year? No Points 0 Interpretation Negative Tobacco Use/Smoking Question Answer Notes Are you a never smoker REASON FOR REFERRAL No Information VITAL SIGNS Height 71.5 in Feb, Weight 262.5 lbs Feb, Temperature 97.7 degrees Fahrenheit Feb, BMI 36.1 kg/m2 Feb, Oximetry 96 % Feb, Respiratory Rate 19 /min Feb, Blood pressure systolic 134 mm Hg Feb, Blood pressure diastolic 74 mm Hg Feb, MEDICATIONS Medication SIG (Take, Route, Notes Start Date End Date Status Frequency, Duration) Metformin HCl 1000 MG 1 tablet with a meal Active in the morning Orally Once a day Trazodone HCl 100 MG 1 tablet at bedtime Active Orally Once a day Cyclobenzaprine HCl 10 1 tablet as needed Active MG Orally Three times a day Iron 325 (65 Fe) MG 1 tablet Orally Once a Active day Hydrocodone-Acetaminophe 1 tablet as needed Nov, Not-Taking n 5-325 MG Orally every 12 hrs Atorvastatin Calcium 10 1 tablet Orally Once a Active MG day for 90 days Pilocarpine HCl 7.5 MG 1 tablet Orally Three Active times a day Colace 100 MG 1 capsule as needed No t-Taking Orally Every other day Furosemide 20 MG 0.5 tablet Orally Once June, Not-Taking a day for 16 days Tolterodine Tartrate ER 1 capsule Orally Once Active 4 MG a day Zestoretic 20-12.5 MG 1 tablet Orally Once a Active day for 90 days Humalog 100 UNIT/ML as directed Acti ve Subcutaneous Hemocyte Plus 106-1 MG 1 capsule Orally Once Active a day Omeprazole 40 MG 1 capsule Orally Once Active a day for 90 day(s) Abilify 20 MG 1 tablet Orally Once a Active day ProAir HFA 108 (90 Base) 2 puffs as needed Not-Taking MCG/ACT Inhalation every 6 hrs Vistaril 25 MG 1 capsule as needed A ctive Orally every 8 hrs Restasis 0.05 % 1 drop into affected Active eye Ophthalmic Twice a day Plaquenil 200 MG 1 tablet with food or Active milk Orally Once a day Bydureon 2 MG Subcutaneous Active Leflunomide 20 MG 1 tablet Orally Once a Active day Toujeo SoloStar 300u/ml subcutaneously once Active daily Paxil 40 MG 1 tablet in the Active morning Orally Once a day Folic Acid 1 MG 1 tablet Orally Once a Active day Guaifenesin-Codeine 10 ml as needed Orally Active 100-10 MG/5ML every 6 hrs PRN Cough for 10 days Breo Ellipta 200-25 1 puff Inhalation Once Active MCG/INH a day Celebrex 200 MG 1 capsule with food Active Orally Once a day MetFORMIN HCl ER 500 MG 1 tablet at night Active Orally Once a day Saphris 10 MG 1 tablet under the Act mago tongue and allow to dissolve Sublingual Once a day Savella 50 MG 2 tablets Orally Twice Active a day PROCEDURES No Information RESULTS No Results REASON FOR VISIT Follow-up + [facility] MEDICAL (GENERAL) HISTORY Type Description Date Medical [...] STATUS No Information ASSESSMENTS Encounter Date Diagnosis Assessment Notes Treatment Notes Treatm ent Clinical Notes Feb, Atypical chest pain Hospital course (ICD-10 - R07.89) reviewed with patient extensively. Answered all questions the best my knowledge. Encouraged to follow-up with cardiology. Asymptomatic at this time. Compliant with all medications. Denies any further symptoms at this time. Patient vocalized understanding. Feb, Diabetes type 2, Managed by ENDO. controlled (ICD-10 Education given. - E11.9) Samples given. Feb, Benign essential Controlled. HTN (ICD-10 - I10) Education given. Feb, Hyperlipidemia, Tolerating it well. mixed (ICD-10 - Education given. E78.2) Feb, Obstructive sleep Compliant with apnea (ICD-10 - CPAP. G47.33) Feb, Rheumatoid Managed arthritis (ICD-10 - Rheumatology. M06.9) Education given. Intermittent compliant with medication. Has recently stopped all rheumatology medications Feb, Bipolar disorder Managed by Psych. (ICD-10 - F31.9) Education given. Stable. Denies SI/HI. Feb, Ankylosing spondylitis of multiple sites in spine (ICD-10 - M45.0) Feb, Iron deficiency anemia due to chronic blood loss (ICD-10 - D50.0) Feb, Insomnia (ICD-10 - Stable on G47.00) Trazodone. Feb, Overactive bladder . No relief with (ICD-10 - N32.81) current regimen. Referral to urology Feb, GERD without Aware of half-way esophagitis (ICD-10 impact. Education - K21.9) given. Side effect discussed. Feb, Motion sickness, Side effect initial encounter discussed. (ICD-10 - T75.3XXA) Education given. Instructions given. Feb, Polyp of colon, Managed by Dr. feng part of [facility]. Repeat Cscope colon, unspecified in 2 years. type (ICD-10 - Precancerous Polpy. K63.5) Wanting a different GI. Referral to Dr. Beltre. Feb, Psoriatic arthritis (ICD-10 - L40.50) Feb, Incontinence of . Referral to GI feces, unspecified for further fecal incontinence evaluation type (ICD-10 - management R15.9) Feb, Urinary . referral to incontinence, urology for further unspecified type evaluation (ICD-10 - R32) management. Affecting ADLs Feb, Other -- Medication reviewed and updated. -- Dietary and Lifestyle modifications addressed regarding diet, exercise and weight managemen t. -- Treatment options, risks and benefits, side effects reviewed in detail. -- Advised on signs/symptoms to monitor and when to call clinic and/or visit the nearest ER. Patient verbalized understanding and agreeable with plan. PLAN OF TREATMENT Treatment Notes Assessment Notes Clinical Notes Urinary incontinence, unspecified . referral to urology for further type evaluation management. Affecting ADLs Atypical chest pain Hospital course reviewed with patient extensively. Answered all questions the best my knowledge. Encouraged to follow-up with cardiology. Asymptomatic at this time. Compliant with all medications. Denies any further symptoms at this time. Patient vocalized understanding. Incontinence of feces, unspecified . Referral to GI for fur ther fecal incontinence type evaluation management Diabetes type 2, controlled Managed by ENDO. Education given . Samples given. Benign essential HTN Controlled. Education given. Hyperlipidemia, mixed Tolerating it well. Education given. Obstructive sleep apnea Compliant with CPAP. Rheumatoid arthritis Managed Rheumatology. Education given. Intermittent compliant with medication. Has recently stopped all rheumatology medications Bipolar disorder Managed by Psych. Education given. Stable. Denies SI/HI. Polyp of colon, unspecified part of Managed by Dr. Ellis. Rep eat Cscope colon, unspecified type in 2 years. Precancerous Polpy. Wanting a different GI. Referral to Dr. Beltre. Motion sickness, initial encounter Side effect discussed. Ed ucation given. Instructions given. Insomnia Stable on Trazodone. Overactive bladder . No relief with current regimen. Referral to urology GERD without esophagitis Aware of half-way impact. Education given. Side effect discussed. Treatment Notes Test Name Order Date Lipid Panel With LDL/HDL Ratio 2020-02-23 Ferritin, Serum 2020-02-23 Microalbumin/Creat Ratio, Random Ur 2020-02-23 Hemoglobin A1c 2020-02-23 Comp. Metabolic Panel (14) (CMP) 2020-02-23 CBC With Differential/Platelet 2020-02-23 Next Appt Details 2 Weeks Reason: Provider Name:Luciano Travis, 2020-03-08 03:50:00 PM, [address], [address], [place], [address], Insurance Providers Payer Name Payer Address Payer Insured Patient Coverage Cover age End Phone Name Relationship to Start Date Steve e Insured [employer] [address] [address] [phone] Kilo Armstrong [facility] 023 n [phone]
--- OUTSIDE RECORDS SUMMARY | 2020-03-07 11:00 | XMS REPORT ---
:[address] [facility] [place] [place] Address [address], [address] [place] [address] Care Team Providers Name Role Phone Travis Unavailable [phone] PROBLEMS Type Condition ICD9-CM [id number] Onset Condition SNOMED Code Notes Code Code Dates Status Problem Diabetic E11.40 Active 104668112 neuropathy Problem Fibromyalgia M79.7 Active 857252834 Problem Insomnia G47.00 Active 111506198 Problem Morbid obesity E66.01 Active 009170958 Problem Vitamin D E55.9 Active 01097817 deficiency Problem Fatty liver K76.0 Active 491490564 Problem Rheumatoid M06.9 Active 04459489 arthritis Problem GERD without K21.9 Active 905201289 esophagitis Problem Benign essential I10 Active 71826386 HTN Problem Iron deficiency D50.0 Active 921690570 anemia due to chronic blood loss Problem Hyperlipidemia, E78.2 Active 061336489 mixed Problem Overactive bladder N32.81 Active 029873989 Problem Incontinence of R15.9 Active 76396037 feces, unspecified fecal incontinence type Problem 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 313388055 sleep disorder, shift work type Problem Restless leg G25.81 Active 97425443 syndrome Problem Urinary R32 Active 814867321 incontinence, unspecified type Problem Ankylosing M45.0 Active 6990116 spondylitis of multiple sites in spine Problem Bipolar disorder F31.9 Active 78593843 Problem Diabetes type 2, E11.9 Active 785222652 controlled Problem Obstructive sleep G47.33 Active 75520053 apnea Problem Primary M17.0 Active 128937659 osteoarthritis of both knees Problem Chronic J44.9 Active 31898964 obstructive pulmonary disease, unspecified COPD type Problem Psoriatic L40.50 Active 585405063 arthritis ALLERGIES Allergen (clinical drug Drug/Non Drug Allergy Reaction Allergy Type Onset Date Status ingredient) documented on EMR glimepiride Glimepiride([facility] Unknown Drug Allergy Active Code:[address]-06) metformin Metformin HCl([facility] Unknown Drug Allergy Activ e Code:[address]-79) pregabalin Lyrica([facility] Unknown Drug Allergy Active Code:[address]-31) canagliflozin Invokana([facility] Unknown Drug Allergy Active Code:[address]-34) ENCOUNTERS from 1960 to 2020-02-24 Encounter Location Date Provider Diagnosis [facility] [address] [facility] [address] Feb, 2020 [place] [address] IMMUNIZATIONS Vaccine Route Administration Date Status Kenalog [...] things, such as reading More than h amelia the days the newspaper or watching television [...] No information MEDICATIONS Medication SIG (Take, Route, Notes Start [...] Information RESULTS No Results REASON FOR VISIT Critical lab MEDICAL (GENERAL) HISTORY Type Description Date Medical [...] Information ASSESSMENTS No Information PLAN OF TREATMENT Next Appt Details Provider Name:[facility] Tomasa Thaddeus, 2020-03-08 03:50:00 PM, [address] [place] [address], [address], [address], Provider Name:Laura Serrano, 10:00:00 AM, [address] [place] [address], [address], [address], Insurance Providers Payer Name Payer Address Payer Insured Patient Coverage Cover age End Phone Name Relationship to Start Date Steve e Insured [employer] [address] [address] [phone] Kilo Armstrong [facility] 023 n [phone]
--- OUTSIDE RECORDS SUMMARY | 2020-03-07 11:00 | XMS REPORT ---
:1960 Author Organization [facility] Address [address], [address] [place] [address] Care Team Providers Name Role Phone Traivs Unavailable [phone] PROBLEMS Type Condition ICD9-CM [id number] Onset Condition SNOMED Code Notes Code Code Dates Status Problem Diabetic E11.40 Active 526878423 neuropathy Problem Fibromyalgia M79.7 Active 814304591 Problem Insomnia G47.00 Active 265809589 Problem Morbid obesity E66.01 Active 741144951 Problem Vitamin D E55.9 Active 54261651 deficiency Problem Fatty liver K76.0 Active 728425149 Problem Rheumatoid M06.9 Active 55174786 arthritis Problem GERD without K21.9 Active 105990236 esophagitis Problem Benign essential I10 Active 50839069 HTN Problem Iron deficiency D50.0 Active 945996666 anemia due to chronic blood loss Problem Hyperlipidemia, E78.2 Active 572702683 mixed Problem Overactive bladder N32.81 Active 518635302 Problem Incontinence of R15.9 Active 63679825 feces, unspecified fecal incontinence type Problem 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 122359557 sleep disorder, shift work type Problem Restless leg G25.81 Active 87005569 syndrome Problem Urinary R32 Active 124362335 incontinence, unspecified type Problem Ankylosing M45.0 Active 8940196 spondylitis of multiple sites in spine Problem Bipolar disorder F31.9 Active 86549459 Problem Diabetes type 2, E11.9 Active 959695690 controlled Problem Obstructive sleep G47.33 Active 28459370 apnea Problem Primary M17.0 Active 599628067 osteoarthritis of both knees Problem Chronic J44.9 Active 31072236 obstructive pulmonary disease, unspecified COPD type Problem Psoriatic L40.50 Active 833062757 arthritis ALLERGIES Allergen (clinical drug Drug/Non Drug Allergy Reaction Allergy Type Onset Date Status ingredient) documented on EMR glimepiride Glimepiride([facility] Unknown Drug Allergy Active Code:[address]-97) metformin Metformin HCl([facility] Unknown Drug Allergy Activ e Code:[address]-65) pregabalin Lyrica([facility] Unknown Drug Allergy Active Code:[address]-12) canagliflozin Invokana([facility] Unknown Drug Allergy Active Code:[address]-49) ENCOUNTERS from 1960 to 2020-03-03 Encounter Location Date Provider Diagnosis [facility] [address] [facility] [address], [place] [address] IMMUNIZATIONS Vaccine Route Administration Date Status Kenalog [...] Information RESULTS No Results REASON FOR VISIT BG critical. Contact number MEDICAL (GENERAL) HISTORY Type Description Date Medical [...] PLAN OF TREATMENT Next Appt Details Provider Name:Luciano Tomasa Thaddeus, 2020-03-08 03:50:00 PM, [address] [place] [address], [address], [address], Provider Name:Laura Serrano, 10:00:00 AM, [address] [facility] [address], [place], [address], Insurance Providers Payer Name Payer Address Payer Insured Patient Coverage Cover age End Phone Name Relationship to Start Date Steve e Insured [employer] [address] [address] [phone] Kilo Armstrong self [facility] 023 n [phone]
--- OUTSIDE RECORDS SUMMARY | 2020-03-07 11:00 | XMS REPORT | Continuity of Care Document ---
:1960 Author Organization [facility] t Address [address] [place] [address] Care Team Providers Name Role Phone Asked, Pcp Primary Care Physician Unavailable Starr Main Attending Clinician RUFUS Attending Clinician Unavailable [id number] Attending Clinician Unavailable Ina Rutherford Attending Clinician LAVERN Attending Clinician Unavailable Yolanda Puckett Attending Clinician Problems Condition Condition Condition Status Onset Resolution Last Treating Co mments Source Name Details Category Date Date Treatment Clinician Date - Diagnosis Active 2019-022019-11-25 M bhavinrimarlin "OTALGIA, 0- 12:00:00 l RIGHT EAR" H9.01 - 00:01: Mikel salgado "OTALGIA, 00 RIGHT EAR" Active 11/11/2019 [facility] [place] RIGHT KNEE Diagnosis Active 2016-04-01 Memoria PAIN 2-20 12:48:00 l RIGHT 00:00: [place] KNEE PAIN 00 Active 04/01/2016 [place] STRESS Diagnosis Active 2015-08-10 Mem oria URINARY -14 07:24:00 l INCONTINEN STRESS 00:00: Herm archana CE-N39.3 / URINARY 00 URET INCONTINEN CE-N39.3 / URET Active 05/25/2015 [place] R31.2 - Diagnosis Active 2015-06-06 Me moria OTHER 3-14 16:22:00 l MICROSCOPI R31.2 - 00:01: Her daryl C OTHER 00 HEMATURIA MICROSCOPI C HEMATURIA Active 04/24/2015 [facility] [place], OPID [place] 727.00 - Diagnosis Active 2011-09-02 M cecilio SYNOVITIS 08-29 08:58:00 l NOS 727.00 - 00:01: Randy iqbal SYNOVITIS 00 NOS Active 08/30/2011 [facility] History of History of Problem Resolve Univers [...] [place] apnea apnea Physici syndrome syndrome ans Obese Obese Problem Active Univers HL7.CCDAR2 [...] Active Univers burning burning HL7.CCDAR2 [facility] [place] [facility] ans Vaginal Vaginal Problem Active Univers irritation irritation HL7.CCDAR2 [facility] [place] [facility] ans Vaginal Vaginal Problem Active Univers discharge discharge HL7.CCDAR2 [facility] [place] [facility] Bacterial Bacterial Problem Active Uni vers vaginosis vaginosis HL7.CCDAR2 [facility] [place] [facility] Dysuria Dysuria Problem Active Univers HL7.CCDAR2 [facility] [place] [facility] Anxiety Problem Resolve 2019-11-26 Mem oria (finding) d 23:02:23 l Anxiety [place] (finding) Resolved Problem 11/26/2019 Tomasa Farrar [place] Chronic Problem Resolve 2019-11-26 Mem oria obstructiv d 23:02:23 l e lung Chronic [place] disease obstructiv (disorder) e lung disease (disorder) Resolved Problem 11/26/2019 Tomasa Farrar [place] Depressive Problem Resolve 2019-11-26 Memoria disorder d 23:02:23 l (disorder) Randy iqbal Depressive disorder (disorder) Resolved Problem 11/26/2019 Tomasa Farrar [place] Diabetes Problem Resolve 2019-11-26 Me moria mellitus d 23:02:23 l (disorder) Diabetes [place] mellitus (disorder) Resolved Problem 11/26/2019 [place]lias [place] Endometrio Problem Resolve 2019-11-26 Memoria sis d 23:02:23 l (disorder) Randy iqbal Endometrio sis (disorder) Resolved Problem 11/26/2019 NISHA DominguezTomasa ramirez [place] Fibromyosi Problem Resolve 2019-11-26 Memoria tis d 23:02:23 l (disorder) Randy n Fibromyosi tis (disorder) Resolved Problem 11/26/2019 Tomasa Farrar [place] Hypertensi Problem Resolve 2019-11-26 Memoria ve d 23:02:23 l disorder, [place] systemic Hypertensi arterial ve (disorder) disorder, systemic arterial (disorder) Resolved Problem 11/26/2019 Tomasa Farrar Lumbar Problem Resolve 2019-11-26 Alonzo summer spondylosi d 23:02:23 l s Lumbar [place] (disorder) spondylosi s (disorder) Resolved Problem 11/26/2019 Tomasa Farrar Motion Problem Resolve 2019-11-26 Alonzo summer sickness d 23:02:23 l (disorder) Motion Herm archana sickness (disorder) Resolved Problem 11/26/2019 Tomasa Farrar Neuropathy Problem Resolve 2019-11-26 Memoria (disorder) d 23:02:23 l [place] Neuropathy (disorder) Resolved Problem 11/26/2019 Tomasa Farrar Bladder Problem Resolve 2019-11-26 Mem oria muscle d 23:02:23 l dysfunctio Bladder Her brito n - muscle overactive dysfunctio (disorder) n - overactive (disorder) Resolved Problem 11/26/2019 Tomasa Farrar Rheumatoid Problem Resolve 2019-11-26 Memoria arthritis d 23:02:23 l (disorder) Randy iqbal Rheumatoid arthritis (disorder) Resolved Problem 11/26/2019 Tomasa Farrar Sleep Problem Resolve 2019-11-26 Alonzo summer apnea d 23:02:23 l (finding) Sleep Randy n apnea (finding) Resolved Problem 11/26/2019 Tomasa Farrar [place] Discharge Problem 2017-2016-04-04 2016-04-04 Memoria Diagnosis: 2- 04:32:29 04:32:29 l Pain and 06:00: [place] swelling Discharge 00 of right Diagnosis: knee Pain and swelling of right knee 04/01/2016 04/04/2016 [place] Allergies, Adverse Reactions, Alerts Allergy Allergy Status Severity Reaction(s) Onset Inactive Treating Comm ents Source Name Type Date Date Clinician Lactase Propensi Active GI 2015-02 [place] ty to Intolerance 02-18 Metho di adverse 00:00: st reaction 00 s to drug Gabapent Propensi Active Other (See 2015-02 Got real Clarkrange in ty to Comments) 02-18 dizzy Methodi adverse 00:00: st reaction 00 s to drug Pregabal Propensi Active Swelling 2015-02 [place] in ty to 02-18 Methodi adverse 00:00: st reaction 00 s to drug Invokana Adverse Active Info Not [facility] Metformi Adverse Active Info Not [facility] n HCl Reaction Available [facility] Lyrica Adverse Active Info Not [facility] Reaction Available [facility] Glimepir Adverse Active Info Not [facility] timothy Reaction Available [facility] Lyrica drug Active Univers CAPS allergy [facility] [place] [facility] Adhesive Adhesive Active Memori a l [place] Latex Latex Active Memoria l [place] Lyrica Lyrica Active Memoria l [place] Family History Family Member Diagnosis Comments Start Date Stop Date Source Mother Family history of [facility] diabetes mellitus Physici ans Mother Family history of [facility] lung cancer Physicians Mother Family history of [facility] hypertension Physicians Father Family history of [facility] stroke Physicians Brother Family history of [facility] diabetes mellitus Physici ans Natural father Stroke [facility] Natural mother Lung cancer [facility] ethodi Social History Social Habit Start Date Stop Date Quantity Comments Source Sex Assigned At [facility] ethodi Alcohol intake 2015-12-21 2015-12-[address] [facility]00 non-drinker of alcohol (finding) Social History 2015-04-29 2015-04-29 [facility] 04:59:00 04:59:00 Smoking Status Start Date Stop Date Source Never smoker [facility] Medications Ordered Filled Start Stop Current Ordering Indication Dosage Frequency Signature Comments Components Source Medication Medication Date Date Medication? Clinician (SIG) Name Name Amoxicillin Amoxicillin 2019-0 2020- No Luciano [address] [facility] Furosemide Furosemide 2018- Yes Luciano 0.[address] [facility] 00:[facility] Hydrocodone Hydrocodone 2017-02 Yes Luciano [address] [facility] -Acetaminop -Acetaminop 0-01 [place] as needed Lumattie - raysa hen 00:00: Memoria 00 l [facility] Tolterodine Tolterodine Yes BLACK 1 PO QD Univers Tartrate ER Tartrate ER 4-30 [place] ity of 4 MG Oral 4 MG Oral 00:00: N.P. Lionel as Capsule Capsule 00 Physici Extended Extended ans Release 24 Release 24 Hour Hour folic acid 2015-02 Yes 2mg QD Take 2 mg [place] (FOLVITE) 1 09 by mouth Meth gwen MG tablet 15:03: [...] a tablet day. cyclobenzap 2015-02 Yes 10mg [id number] Take 10 mg [place] rine 02-18 [id number] by mouth 3 Met hodi (FLEXERIL) 15:03: 3D (three) st 10 MG 09 times a tablet day. PILOCARPINE 2015-02 Yes 7.5mg [id number] Take 7.5 [place] HCL ORAL -09 [id number] mg by Meth gwen 15:03: 3D mouth 3 st 09 (three) times a day. LISINOPRIL- 2015-02 Yes 2{tbl} QD Take 2 [place] HCTZ 1-09 tablets by Methodi 20-12.5 MG 15:03: mouth st COMBO DOSE 09 daily. dexlansopra 2015-02 Yes 60mg QD Take 60 mg [place]er zole 09 by mouth Methodi (DEXILANT) 15:03: daily. st [...] suvorexant 2015-02 Yes QD Take by Meredith ton (BELSOMRA) 02-18 mouth Methodi 20 mg [...] extract 02-18 le} capsule by Method i (CONI) 15:03: mouth st 200 mg 09 daily. capsule capsule Zetia No Notes: Memoria 08-10 (Same as: l 14:00: Zetia) [place] Dexilant 2015-0 No 60 mg, Memoria 08-10 Route: PO, l 14:00: Drug form: [place] 00 DRC, Daily, Dosing Weight 134.5, kg, Start date: 08/11/15 9:00:00 CDT, Duration: 30 day, Stop date: 09/09/15 9:00:00 CDT Nuvigil 2015-0 No 250 mg, Memoria 08-10 Route: PO, l 14:00: Drug form: [place] 00 TAB, Daily, Dosing Weight 134.5, kg, Start date: 08/11/15 9:00:00 CDT, Duration: 30 day, Stop date: 09/09/15 9:00:00 CDT Abilify 2015-0 No 20 mg, Memoria 08-10 Route: PO, l 14:00: Drug form: [place] 00 TAB, Daily, Dosing Weight 134.5, kg, Start date: 08/11/15 9:00:00 CDT, Duration: 30 day, Stop date: 09/09/15 9:00:00 CDT Deplin 2015-0 No 15 mg, Memoria 08-10 Route: PO, l 14:00: Drug form: [place] 00 CAP, Daily, Dosing Weight 134.5, kg, Start date: 08/11/15 9:00:00 CDT, Duration: 30 day, Stop date: 09/09/15 9:00:00 CDT Hydrochloro 2015-0 No 1 tab, Alonzo summer thiazide 08-10 Route: PO, l 12.5 MG / 14:00: Drug Form: Mikel salgado Lisinopril 00 TAB, 10 MG Oral Dosing Tablet Weight 134.5, kg, Daily, Start date: 08/11/15 9:00:00 CDT, Duration: 30 day, Stop date: 09/09/15 9:00:00 CDT Savella 2016-0 No 50 mg, Memoria 6 Route: PO, l 22:00: Drug form: TAB, BID, Dosing Weight 134.5, kg, Start date: 08/10/15 17:00:00 CDT Ketorolac No 4 days Memor ia 30 l 17:00: MEDICATION WASTE Product Size: 30 mg Product Wasted: _15__ mg Insulin, No Notes: Memoria Aspart, 6 Roll in l Human 16:29: palms of [place] 00 hands gently; Do not shake vigorously . (Same as: NovoLOG) "single patient use only" WASTE: F/P - Black; E - Municipal Trash Bin Stable for 28 days at room temperatur e. Expires in days from ____Date Levalbutero No Notes: SEE Memoria l -30 RT l 16:29: DOCUMENTAT [place] 00 ION (Same as:Xopenex ) Non-Formul george Naloxone No Notes: Memoria 630 Same as l 16:29: Narcan Meperidine No Notes: Memor ia 30 (Same as: l 16:29: Demerol) "Use Precaution in Elderly, Seizure disorders, and Renal impairment " Promethazin No Notes: Do M emoria e 08-09 not give l 16:29: IV push. (Same as: Phenergan) Dexamethaso No Notes: Alonzo summer ne 08-09 Concentrat l 16:29: ion: [place] 4mg/ml Ondansetron No Notes: Alonzo summer -30 (Same as: l 16:29: Zofran) MEDICATION WASTE Product Size: 4 mg Product Wasted: ___ mg Diphenhydra No Notes: Alonzo summer mine 30 (Same as: l 16:29: Benadryl) Albuterol No Notes: SEE Me moria 0.83 MG/ML 30 RT l Inhalant 16:29: DOCUMENTAT Her brito Solution 00 ION (Same as: Proventil) Atropine No Notes: Mem oria -30 MEDICATION l 16:29: WASTE Product Size: 0.4 mg Product Wasted: _0.2__ mg Glycopyrrol No Notes: Alonzo summer ate 08-09 (Same as: l 16:29: Robinul) Phenylephri No Notes: Alonzo summer ne 08-09 Same as: l 16:29: Erik-Syneph rine Albuterol No Notes: Memori a 0.833 MG/ML 08-09 (Same as: l / 16:29: Duoneb) Ipratropium 00 Banner 0.167 MG/ML Inhalant Solution [DuoNeb] celecoxib Yes Notes: Memori a -30 NSAID. l 16:29: Please [place] 00 check indication . Not for seizure. (Same As: CeleBREX) 72 HR Yes Notes: Memoria Scopolamine 08-09 Change l 0.0139 16:29: patch [place] MG/HR 00 every 72 Transdermal hours Patch (Same as: Transderm- Scop) Midazolam No Notes: Memori a -30 (Same as: l 16:29: Versed) MEDICATION WASTE Product Size: 2 mg Product Wasted: _1__ mg Ephedrine No Notes: Memori a -30 (Same as: l 16:29: ePHEDrine Sulfate) Flumazenil No Notes: Memor ia 08-09 (Same as: l 16:29: Romazicon) Calcium No 1,000 mL, Memor ia Chloride 08-09 Rate: 125 l 0.0014 16:29: ml/hr, [place] MEQ/ML / 00 Infuse Potassium over: 8 Chloride hr, Route: 0.004 IV, Dosing MEQ/ML / Weight Sodium 134.5 kg, Chloride Total 0.103 Volume: MEQ/ML / 1,000, Sodium Start Lactate date: 0.028 08/10/15 MEQ/ML 11:29:00 Injectable CDT, Solution Duration: 30 day, Stop date: 09/09/15 11:28:00 CDT Hydralazine No Notes: Alonzo summer 6-30 (Same as: l 16:29: Apresoline ) Push over 5 minutes Labetalol No Notes: Memori a 6-30 (Same as: l 16:29: Normodyne, Trandate) Push over 2 minutes Give bolus over 2-3 minutes. Metoprolol No Notes: Memor ia 6-30 (Same as: l 16:29: Lopressor) Push over 2 minutes Morphine No Notes: Memoria 6-30 (Same l 16:29: as:MORPhin e Sulfate) Fentanyl No Notes: Memoria 6-30 (Same as: l 16:29: Sublimaze) Preservat mago free. Oxycodone No Notes: Memori a 6-30 (Same as: l 16:29: Roxicodone ) Hydromorpho No Notes: Alonzo summer ne 6-30 (Same as: l 16:29: Dilaudid) Acetaminoph No Notes: Alonzo summer en 6-30 Infuse l 16:29: over 15 [place] 00 minutes Do not exceed 4gm/day of acetaminop hen MEDICATION WASTE Product Size: 1000 mg Product Wasted: ___ mg Ibuprofen No Notes: Memori a 6-30 (Same as: l 16:29: Motrin) "Do Not Crush" Take with food. Acetaminoph No Notes: Do M emoria en 6-30 not exceed l 16:24: 4 gm/day. [place] 00 (Same as: Tylenol) Hydromorpho No Notes: Alonzo summer ne 6-30 (Same as: l 16:24: Dilaudid) Acetaminoph No Notes: Alonzo summer en 325 MG / 6-30 (Same as: l Hydrocodone 16:24: Nash Judith nn Bitartrate 00 325/5) Do 5 MG Oral not exceed Tablet 4gm/day of acetaminop hen. Tramadol 2016-0 No Notes: Not Mem oria 6-30 to exceed l 16:24: 400mg/day. (Same As: Ultram) ondansetron No Route: IV, Memoria (ANES) 6- Drug form: l 16:11: INJ, ONCE, Stop date: 08/10/15 11:11:00 CDT phenylephri No Route: IV, Memoria ne (ANES) 6 Drug form: l 16:01: INJ, ONCE, Stop date: 08/10/15 11:01:00 CDT succinylcho No Route: IV, Memoria line (ANES) 6 Drug form: l 15:45: INJ, ONCE, Stop date: 08/10/15 10:45:00 CDT propofol No Route: IV, Mem oria (ANES) 08-09 Drug form: l 15:45: INJ, ONCE, Stop date: 08/10/15 10:45:00 CDT lidocaine No Route: IV, Me moria (ANES) 6 Drug form: l 15:45: INJ, ONCE, Stop date: 08/10/15 10:45:00 CDT fentaNYL No Route: IV, Mem oria (ANES) 6 Drug form: l 15:45: INJ, ONCE, Stop date: 08/10/15 10:45:00 CDT midazolam No Route: IV, Me moria (ANES) 6 Drug form: l 15:45: SOLN, 00 ONCE, Stop date: 08/10/15 10:45:00 CDT ePHEDrine No Route: IV, Me moria (ANES) 6- Drug form: l 15:40: INJ, ONCE, Stop date: 08/10/15 10:40:00 CDT ceFAZolin No Route: IV, Me moria (ANES) 6-30 Drug form: l 15:34: INJ, ONCE, Stop date: 08/10/15 10:34:00 CDT LR 1000 mL No Route: IV, M emoria INJ (ANES) 6-30 Total l 14:51: Volume: [place] 00 1,000, Start date: 08/10/15 9:51:00 CDT, Stop date: 08/10/15 10:51:00 CDT Insulin, No Notes: Memoria Aspart, 6-30 Roll in l Human 13:01: palms of [place] 00 hands gently; Do not shake vigorously . (Same as: NovoLOG) "single patient use only" WASTE: F/P - Black; E - Municipal Trash Bin Stable for 28 days at room temperatur e. Expires in days from ____Date 200 ACTUAT No Notes: Memor ia Albuterol -30 Same as: l 0.09 13:01: Ventolin [place] MG/ACTUAT 00 HFA Metered WASTE: Dose Aerosol - Inhaler Return to Pharmacy Calcium No 1,000 mL, Memor ia Chloride 08-09 Rate: 25 l 0.0014 13:01: ml/hr, [place] MEQ/ML / 00 Infuse Potassium over: 40 Chloride hr, Route: 0.004 IV, Dosing MEQ/ML / Weight Sodium 134.091 Chloride kg, Total 0.103 Volume: MEQ/ML / 1,000, Sodium Start Lactate date: 0.028 08/10/15 MEQ/ML 8:01:00 Injectable CDT, Solution Duration: 30 day, Stop date: 09/09/15 8:00:00 CDT BD Normal No Notes: Memori a Saline -30 (Same as: l Flush 11:00: BD [place] 00 Posiflush) Ancef No Notes: Memoria 6-30 Same as: l 11:00: Ancef [place] 00 Deplin 15 Yes 15 mg = 1 Mem oria mg oral 6-23 cap, PO, l capsule 14:59: Daily, 0 Randy n 00 Refill(s) armodafinil Yes 250 mg = 1 Memoria 250 MG Oral 6-23 tab, PO, l Tablet 14:58: Daily, # [place] [Nuvigil] 00 30 tab, 0 Refill(s) Suvorexant Yes 10 mg = 1 Me moria 10 MG Oral 6-23 tab, PO, l Tablet 14:57: Bedtime, 0 Judith nn [Belsomra] 00 Refill(s) ezetimibe Yes 10 mg = 1 Mem oria 10 MG Oral 6-23 tab, PO, l Tablet 14:56: Daily, 0 [place] [Zetia] 00 Refill(s) Milnacipran Yes 50 mg = 1 M emoria hydrochlori 6-23 tab, PO, l de 50 MG 14:56: BID, # 60 Herm archana Oral Tablet 00 tab, 3 [Savella] Refill(s) aripiprazol Yes 20 mg = 1 M emoria e 20 MG 6-23 tab, PO, l Oral Tablet 14:56: Daily, 0 [place] [Abilify] 00 Refill(s) Tresiba Yes SUB-Q, Memoria FlexTouch 6-23 Daily, 0 l 14:55: Refill(s) [place] 00 0.65 ML Yes 2 mg, Memoria exenatide 6-23 SUB-Q, l 3.08 MG/ML 14:55: qWeek, # 4 H ermann Prefilled 00 ea, 0 Syringe Refill(s) [Bydureon] dexlansopra Yes 60 mg = 1 M emoria zole 60 MG 6-23 cap, PO, l Enteric 14:55: Daily, 0 Randy n Coated 00 Refill(s) Capsule [Dexilant] golimumab Yes IV, q4wk, Mem oria 12.5 MG/ML 6-23 0 l Injectable 14:54: Refill(s) [place] Solution 00 [Simponi Aria] Hydrochloro Yes 1 tab, PO, Memoria thiazide 6-23 Daily, 0 l 12.5 MG / 14:54: Refill(s) Her brito Lisinopril 00 10 MG Oral Tablet solifenacin Yes 10 mg = 1 M emoria succinate 6-23 tab, PO, l 10 MG Oral 14:54: Daily, 0 Her brito Tablet 00 Refill(s) [VESICARE] pilocarpine Yes 7.5 mg = 1 Memoria 7.5 mg oral 6-23 tab, PO, l tablet 14:53: TID, # 90 Randy n 00 tab, 0 Refill(s) cyclobenzap Yes 10 mg = 1 M emoria rine 10 mg 6-23 tab, PO, l oral tablet 14:53: TID, PRN [place] 00 for spasms, # 30 tab, 0 Refill(s) Hydroxychlo Yes 200 mg, Mem oria roquine 6-23 PO, Daily, l 14:53: 0 [place] 00 Refill(s) celecoxib Yes 200 mg = 1 Me moria 200 MG Oral 6-23 cap, PO, l Capsule 14:52: BID, 0 [place] [Celebrex] 00 Refill(s) Methotrexat Yes 0 Memori a e 6-23 Refill(s) l 14:52: [place] 00 Methotrexat Yes INTRATHECA Memoria e Sodium, 6-23 L, ONCE, 0 l Preservativ 14:52: Refill(s) H ermann e Free 25 00 mg/mL injectable solution Folic Acid Yes 1 mg = 1 Mem oria 1 MG Oral 6-23 tab, PO, l Tablet 14:51: Daily, 0 [place] 00 Refill(s) Celebrex Celebrex Yes Luciano [address] [facility] with food [facility] Cyclobenzap Cyclobenzap Yes Luciano 1 [...] [facility] Tartrate ER Tartrate ER [facility] Hemocyte Hemocyte Yes Luciano [address] [facility] Plus Plus [facility] Folic Acid Folic Acid Yes Luciano [address] [facility] MetFORMIN MetFORMIN Yes Luciano [address] [facility] HCl ER HCl ER [facility] at night [facility] Metformin Metformin Yes Luciano [address] [facility] HCl HCl [facility] with a [facility] - meal in Memoria the l morning Outpat[facility] ent Clinics Saphris Saphris Yes Luciano [address] [facility] under the [facility] - tongue and Memoria allow to l dissolve [facility] Paxil Paxil Yes Luciano [address] [facility] in the [facility] - morning Memoria l [facility] Colace Colace Yes Luciano [address] [facility] as needed [facility] Abilify 20 Abilify 20 Yes 1 po QHS Univers MG Oral MG Oral ity of Tablet Tablet [place] Physici ans Savella 50 Savella 50 Yes 1 po QHS Univers MG Oral MG Oral ity of Tablet Tablet [place] [facility]ici ans Plavix 75 Plavix 75 Yes Unive rs MG Oral MG Oral ity of Tablet Tablet [place] [facility] ans Simvastatin Simvastatin Yes U nivers [...] CeleBREX Yes Univers CAPS CAPS [facility] of [place] Physici ans Hydroxychlo Hydroxychlo Yes U nivers roquine roquine ity of Sulfate 200 Sulfate 200 [place] MG Oral MG Oral Physici Tablet Tablet ans Folic Acid Folic Acid Yes Uni vers 1 MG Oral 1 MG Oral ity o f Tablet Tablet [place] [facility]ici ans Pilocarpine Pilocarpine Yes U nivers HCl - 7.5 HCl - 7.5 ity o f MG Oral MG Oral [place] Tablet Tablet Physici ans HydrOXYzine HydrOXYzine Yes U nivers HCl - 25 MG HCl - 25 MG i ty of Oral Tablet Oral Tablet [place] Physici ans TraZODone TraZODone Yes Unive rs HCl TABS HCl TABS ity of [place] Physici ans Tresiba Tresiba Yes Univers FlexTouch FlexTouch ity o f SOPN SOPN [place] [facility] Bydureon Bydureon Yes Univers PEN PEN [facility] [place] [facility] Vital Signs Vital Name Observation Time Observation Value Comments Source BP Systolic 2017-09-03 130 mm[Hg] Location: [facility] 11:02:00 Position: [place] Physician s Sitting BP Diastolic 2017-09-03 80 mm[Hg] Location: [facility] 11:02:00 Position: [place] Physician s Sitting Height 2017-09-03 71 [in_us] University 11:02:00 [place] Physician s Weight 2017-09-03 298 [lb_av] University of 11:02:00 [place] Physician s Body Mass Index 2017-09-03 41.56 kg/m2 University o f Calculated 11:02:00 [place] Physician s Temperature 2017-09-03 97.8 [degF] University 11:02:00 [place] Physician s BP Systolic 2017-08-27 108 mm[Hg] Location: [facility]; [facility] 14:27:00 Position: [place] Physician s Sitting BP Diastolic 2017-08-27 70 mm[Hg] Location: [facility]; [facility] 14:27:00 Position: [place] Physician s Sitting Height 2017-08-27 71 [in_us] University 14:27:00 [place] Physician s Weight 2017-08-27 298 [lb_av] [facility] 14:27:00 [place] Physician s Body Mass Index 2017-08-27 41.56 kg/m2 University o f Calculated 14:27:00 [place] Physician s Temperature 2017-08-27 97.9 [degF] University of 14:27:00 [place] Physician s BP Systolic 2017-08-21 130 mm[Hg] Location: [facility] 10:23:00 Position: [place] Physician s Sitting BP Diastolic 2017-08-21 84 mm[Hg] [facility] Position: [place] Phys[facility] Sitting Height 2017-08-21 71 [in_us] University 10:23:00 [place] Physician s Weight 2017-08-21 298 [lb_av] University of 10:23:00 [place] Physician s Body Mass Index 2017-08-21 41.56 kg/m2 University o f Calculated 10:23:00 [place] Physician s BP Systolic 2017-08-14 150 mm[Hg] Location: [facility] 10:53:00 Position: [place] Physician s Sitting BP Diastolic 2017-08-14 72 mm[Hg] Location: [facility]; [facility] 10:53:00 Position: [place] Physician s Sitting Height 2017-08-14 71 [in_us] [facility] 10:53:00 [place] Physician s Weight 2017-08-14 298 [lb_av] University 10:53:00 [place] [facility] s Body Mass Index 2017-08-14 41.56 kg/m2 University o f Calculated 10:53:00 [place] Physician s Temperature 2017-08-14 98.8 [degF] University of 10:53:00 [place] Phys[facility] s BP Systolic 2017-07-31 132 mm[Hg] Location: [facility]; [facility] 13:51:00 Position: [place] Physician s Sitting BP Diastolic 2017-07-31 68 mm[Hg] Location: [facility]; [facility] 13:51:00 Position: [place] Physician s Sitting Height 2017-07-31 71 [in_us] University 13:51:00 [place] [facility] s Weight 2017-07-31 298 [lb_av] University 13:51:00 [place] [facility] s Body Mass Index 2017-07-31 41.56 kg/m2 University o f Calculated 13:51:00 [place] [facility] s Temperature 2017-07-31 98.2 [degF] [facility] 13:51:00 [place] [facility] s BP Systolic 2017-07-24 122 mm[Hg] Location: [facility]; [facility] 13:30:00 Position: [place] Physician s Sitting BP Diastolic 2017-07-24 72 mm[Hg] Location: [facility]; [facility] 13:30:00 Position: [place] Physician s Sitting Height 2017-07-24 71 [in_us] University of 13:30:00 [place] Phys[facility] s Weight 2017-07-24 298 [lb_av] University of 13:30:00 [place] [facility] s Body Mass Index 2017-07-24 41.56 kg/m2 University o f Calculated 13:30:00 [place] Phys[facility] s Temperature 2017-07-24 98.4 [degF] [facility] 13:30:00 [place] [facility] BP Systolic 2017-07-17 110 mm[Hg] Location: [facility]; [facility] 14:32:00 Position: [place] Physician s Sitting BP Diastolic 2017-07-17 80 mm[Hg] Location: [facility]; [facility] 14:32:00 Position: [place] Physician s Sitting Height 2017-07-17 71 [in_us] University of 14:32:00 [place] Phys[facility] s Weight 2017-07-17 298 [lb_av] University of 14:32:00 [place] [facility] Body Mass Index 2017-07-17 41.56 kg/m2 University o f Calculated 14:32:00 [place] Physician s BP Systolic 2017-07-03 142 mm[Hg] Location: NAIN; [facility] 09:36:00 Position: [place] Phys[place] Sitting BP Diastolic 2017-07-03 80 mm[Hg] Location: NAIN; [facility] 09:36:00 Position: [place] Phys[facility] Sitting Height 2017-07-03 71 [in_us] [facility] 09:36:00 [place] [facility] [place] Weight 2017-07-03 298 [lb_av] [facility] 09:36:00 [place] [facility] Body Mass Index 2017-07-03 41.56 kg/m2 University o f Calculated 09:36:00 [place] [facility] [facility] Temperature 2017-07-03 97.4 [degF] [facility] 09:36:00 [place] [facility] BP Systolic 2017-06-19 140 mm[Hg] Location: NAIN; [facility] 15:26:00 Position: [place] Physician [facility] Sitting BP Diastolic 2017-06-19 80 mm[Hg] Location: NAIN; [facility] 15:26:00 Position: [place] Physician s Sitting Height 2017-06-19 71 [in_us] [facility] 15:26:00 [place] [facility] Weight 2017-06-19 298 [lb_av] [facility] 15:26:00 [place] [facility] [facility] Body Mass Index 2017-06-19 41.56 kg/m2 University o f Calculated 15:26:00 [place] [facility] [facility] Temperature 2017-06-19 97.9 [degF] [facility] 15:26:00 [place] [facility] BP Systolic 2017-06-12 118 mm[Hg] Location: NAIN; [facility] 13:28:00 Position: [place] Physician s Sitting BP Diastolic 2017-06-12 80 mm[Hg] Location: NAIN; [facility] 13:28:00 Position: [place] Physician [facility] Sitting Height 2017-06-12 71 [in_us] [facility] 13:28:00 [place] [facility] Weight 2017-06-12 298 [lb_av] [facility] 13:28:00 [place] [facility] Body Mass Index 2017-06-12 41.56 kg/m2 University o f Calculated 13:28:00 [place] [facility] [facility] BP Systolic 2017-06-09 160 mm[Hg] Location: NAIN; [facility] 09:20:00 Position: [place] Physician s Sitting BP Diastolic 2017-06-09 92 mm[Hg] Location: NAIN; [facility] 09:20:00 Position: [place] Physician s Sitting Height 2017-06-09 71 [in_us] [facility] 09:20:00 [place] [facility] Weight 2017-06-09 298 [lb_av] [facility] of 09:20:00 [place] [facility] Body Mass Index 2017-06-09 41.56 kg/m2 University o f Calculated 09:20:00 [place] [facility] Temperature 2017-06-09 98.2 [degF] [facility] 09:20:00 [place] [facility] Respitory Rate 2016-04-01 [facility] 21:16:00 Systolic (mm Hg) 2016-04-01 [facility] 21:16:00 Diastolic (mm Hg) 2016-04-01 [facility] 21:16:00 Temperature Oral 2016-04-01 99.1 F [facility] (F) 21:16:00 Heart Rate 2016-04-01 [facility] 21:16:00 Respitory Rate 2016-04-01 [facility] 17:46:00 Heart Rate 2016-04-01 [facility] 17:46:00 Temperature Oral 2016-04-01 98.5 F [facility] (F) 17:46:00 Systolic (mm Hg) 2016-04-01 [facility] 17:46:00 Diastolic (mm Hg) 2016-04-01 [facility] 17:46:00 Weight 2016-04-01 [facility] 17:46:00 Heart Rate 2015-08-10 [facility] 19:15:00 Respitory Rate 2015-08-10 [facility] 19:15:00 Systolic (mm Hg) 2015-08-10 [facility] 19:15:00 Diastolic (mm Hg) 2015-08-10 [facility] 19:15:00 Respitory Rate 2015-08-10 [facility] 18:00:00 Heart Rate 2015-08-10 [facility] 18:00:00 Systolic (mm Hg) 2015-08-10 [facility] 18:00:00 Diastolic (mm Hg) 2015-08-10 [facility] 18:00:00 Heart Rate 2015-08-10 [facility] 17:45:00 Respitory Rate 2015-08-10 [facility] 17:45:00 Systolic (mm Hg) 2015-08-10 [facility] 17:45:00 Diastolic (mm Hg) 2015-08-10 [facility] 17:45:00 BMI Calculated 2015-08-10 [facility] 13:14:00 Weight 2015-08-10 [facility] 13:14:00 Temperature Oral 2015-08-03 98.5 F [facility] Mikel salgado (F) 14:50:00 Height 2015-08-03 180.34 cm [facility] Randy n 13:51:00 Procedures Procedure Date / Time Performing Clinician Source Performed [QLH] CULTURE, URINE, 2017-08-27 00:00:00 [facility] ROUTINE Physicians [[facility]] CULTURE, URINE, 2017-08-21 00:00:00 [facility] ROUTINE Physicians [[facility]] CULTURE, URINE, 2017-06-09 00:00:00 [facility] ROUTINE Physicians History of Ankle Surgery [facility] Physicians History of Hysteroscopy [facility] With Endometrial Ablation Physic ians CHILO [facility] Randy iqbal transplantation ORIF - Open reduction and [facility] internal fixation of fracture Tendon operation Chrystal iqbal Encounters Start End Encounter Admission Attending Care Care Encounter Source Date/Time Date/Time Type Type Clinicians Facility Department ID 2020-02-28 2020-02-28 Outpatient [facility] [id number] [facility] 2020-02-24 2020-02-24 Out[facility] [id number] [facility] 2020-02-23 2020-02-23 Out[facility] [id number] [facility] 2020-02-23 2020-02-23 Outpatient [facility] [id number] [facility] 2019-11-24 2019-11-24 Outpatient [facility]Y [facility] MHOIP [id number] 09:28:00 23:59:00 Rena Clements 2019-11-11 2019-11-11 Outpatient [facility]MLC [facility] [id number] [facility] 2019-11-02 2019-11-02 Outpatient [facility] [id number] [facility] 2019-11-02 2019-11-02 [id number] 2019-10-27 2019-10-27 [facility] [id number] [facility] 14:10:00 14:10:00 [place] - [facility] Medicine l Medicine Outpati ent Clinics 2019-10-27 2019-10-27 [facility] [id number] [facility] 10:59:00 10:59:00 [place] [employer] s - Drive [facility] Medicine l Medicine Outpati ent Clinics 2019-10-12 2019-10-12 [facility] [id number] [facility] 08:20:00 08:20:00 [place] [employer] s - Drive [facility] Medicine l Medicine Outpati ent Clinics 2019-09-22 2019-09-22 [facility] [id number] 08:30:00 08:30:00 [place] Temptster s - Drive [facility] Medicine l Medicine Outpati ent Clinics 2019-08-10 2019-08-10 [facility] [id number] [facility] 13:30:00 13:30:00 [place] [employer] [place] - Drive [facility] Medicine l Medicine Outpati ent Clinics 2019-04-02 2019-04-02 [facility] [id number] [facility] 15:07:00 15:07:00 [place] [employer] [place] - Drive [facility] l Medicine Outpati ent Clinics 2019-03-16 2019-03-16 [facility] [id number] 17:04:00 17:04:00 [place] Tempt[place] s - Drive [facility] l Medicine Outpati ent Clinics 2018-12-03 2018-12-03 [facility] [id number] [facility] 16:41:00 16:41:00 [place] [employer] [place] - Drive [facility] l Medicine Outpati ent Clinics 2018-11-18 2018-11-18 [facility] [id number] [facility] 08:00:00 08:00:[address] [place] [address] [address] Luke [place] - Drive [facility] Medicine Outpati ent Clinics 2018-07-22 2018-07-22 [facility] [id number] [facility] 08:30:00 08:30:[address] [place] [address] [address] Luke [place] - Drive [facility] Medicine Outpati ent Clinics 2018-06-10 2018-06-10 [facility] [id number] [facility] 09:53:00 09:53:[address] [place] [address] [address] Luke [place] - Drive [facility] Medicine Outpati ent Clinics 2018-03-23 2018-03-23 [facility] [id number] 14:00:00 14:00:[address] [place] [address] [address] Luke [place] - Drive [facility] Medicine Outpati ent Clinics 2018-03-19 2018-03-19 [facility] [id number] [facility] 10:45:00 10:45:00 [place] ENJORE Luke s - Drive [facility] Medicine Outpati ent Clinics 2017-11-10 2017-11-10 [facility] [id number] [facility] 10:15:00 10:15:[address] [place] [address] [address] Luke [place] - Drive [facility] Medicine Outpati ent Clinics 2017-11-06 2017-11-06 [facility] [id number] [facility] 08:00:00 08:00:00 [place] ENJORE [employer] s - Drive [facility] Medicine Outpati ent Clinics 2017-09-23 2017-09-23 [facility] [id number] [facility] 16:07:00 16:07:00 [place] ENJORE [employer] s - Drive [facility] Medicine Outpati ent Clinics 2017-09-03 2017-09-03 Appointmen RHIANNON HOOPER [facility] 4 [id number] [facility] 11:00:00 11:00:00 t; KARISSA CLEANING [facility] Seferino HOOPER s KARISSA CLEANING Physic i ans 2017-08-27 2017-08-27 Appointmen RHIANNON HOOPER [facility] 4 [id number] Univers 14:10:00 14:10:00 t; KARISSA CLEANING gy Center it y of [place] HOOPER s KARISSA CLEANING Physic i ans 2017-08-21 2017-08-21 Appointmen RHIANNON HOOPER [facility] 4 [id number] Univers 10: 10:10:00 t; KARISSA CLEANING gy Center it y of [place] HOOPER s KARISSA CLEANING Physic i ans 2017-08-14 2017-08-14 Appointmen RHIANNON HOOPER [facility] 4 [id number] Univers 11:00:00 11:00:00 t; KARISSA CLEANING gy Center it y of [place] HOOPER s KARISSA CLEANING Physic i ans 2017-07-31 2017-07-31 Appointmen RHIANNON HOOPER [facility] 4 [id number] Univers 14:: 14:10:00 t; KARISSA CLEANING gy Center it y of [place] HOOPER s KARISSA CLEANING Physic i ans 2017-07-24 2017-07-[facility]HI[facility] HOOPER [facility] 4 [id number] Univers 13:20:00 13:20:00 t; KARISSA CLEANING gy Center [facility] MARYVALESeferino FARIAS s KARISSA CLEANING Physic i ans 2017-07-17 2017-07-17 [facility] RHIANNON HOOPER [facility] 4 [id number] Univers 14: 14:10:00 t; KARISSA CLEANING gy Center it y of [place] HOOPER s KARISSA CLEANING Physic i ans 2017-07-03 2017-07-03 Appointmen UROGYEdvin, UTP Women's [id number] Univers 09:00:00 09:00:00 t; DERESKA [facility] [address] Phys[address] ans 2017-06-26 2017-06-26 Appointmen RHIANNON HOOPER [facility] 4 [id number] Univers 09:00:00 09:00:00 t; KARISSA CLEANING gy Center it [facility] KARISSA CLEANING Physic i ans 2017-06-25 2017-06-25 [facility] [id number] 09:30:00 09:30:00 t [employer] [facility] ent Clinics 2017-06-19 2017-06-19 Appointmen RUFUS, UTP [facility] 4 [id number] Univers 15:20:00 15:20:00 t; KARISSA CLEANING gy Center [facility]US [facility] BLACK, KARISSA Physic i ans 2017-06-12 2017-06-12 Appointmen RUFUS, UTP [facility] 4 [id number] Univers 13:20:00 13:20:00 t; KARISSA CLEANING gy Center it [facility] RUFUS [facility] BLACK, KARISSA Physic i ans 2017-06-09 2017-06-09 Appointmen RUFUS, UTP UTP [id number] Univers 09:20:00 09:20:00 t; KARISSA CLEANING it[place], [place] KARISSA CLEANING Physic i ans 2016-12-19 2016-12-19 [facility] BRADFORDHUNGJARRETT, UTP UTP [id number] Univers 10:10:00 10:10:00 t; KARISSA CLEANING ity [place], [place] KARISSA CLEANING Physic i ans 2016-11-28 2016-11-28 [facility] RUFUS, UTP UTP [id number] Univers 10:10:00 10:10:00 t; KAR[employer]SA [employer]ANING ity [place], [place] BLACK, KARISSA Physic i ans 2016-09-12 2016-09-12 [facility] RUFUS, UTP UTP [id number] Univers 13:20:00 13:20:00 t; KARISSA CLEANING ity [place], [place] KARISSA CLEANING Physic i ans 2016-04-01 2016-04-01 Outpatient Julio C [place] [facility] [id number] 11:43:00 17:41:00 Ina 02 2015-11-30 2015-11-30 [facility] BRADFORDHUNGJARRETT, UTP UTP [id number] Univers 09:00:00 09:00:00 t; KARISSA CLEANING it[place], [place] BLACK, KARISSA Physic i ans 2015-10-20 2015-10-20 [facility] LAVERN, UTP UTP [id number] Univers 10:10:00 10:10:00 t; Preeti CARTER ity LAVERN Myrtle CARTER M.D. Physi ci ans 2015-09-21 2015-09-21 [facility] LAVERN [facility] UTP [id number] Univers 13:00:00 13:00:00 t; Preeti CARTER [place], [place] Preeti CARTER Physi ci ans 2015-08-10 2015-08-10 Outpatient Lavern [facility] [place] [facility] [id number] 07:24:00 14:42:00 Andressa 00 [place] 2015-08-10 2015-08-10 [facility] UTP [id number] Univers 09:30:00 09:30:00 t; Preeti CARTER [place] Preeti CARTER Physi ci ans 2015-08-02 2015-08-02 [facility] RHIANNON PUCKETT UTP [id number] Univers 08:30:00 08:30:00 t; Preeti CARTER [place] Preeti CARTER Physi ci ans 2015-07-05 2015-07-05 [facility] UTP [id number] Univers 08:30:00 08:30:00 t; Preeti CARTER [place] Preeti CARTER Physi ci ans 2015-04-28 2015-04-28 Outpatient Lavern [id number] 10:30:00 23:59:00 Andressa [id number]. [id number] [place] [id number] Results Test Description Test Time Test Comments Results Result Comments Source [[facility]] CULTURE, URINE, ROUTINE 2017-08-28 14:25:01 Test Item Value Reference Range Interpretation Comme nts ORGANISM (test code = 699-9) Escherichia coliEnterococcus Species FINAL REPORT (test code = FINAL 50,000 - 100,000 CFU/mL Escherichia coli REPORT) 10,000 - 50,000 CFU/mL EnterococcusSpecies 10,000 - 50,000 CFU/mL Skin Nina [facility] Physicians[H] [id number] 14:25:01 Test Item Value Reference Range Interpretation Comments ORGANISM (test code = Enterococcus 699-9) Species Ampicillin (test code - S = Ampicillin) Levofloxacin (test - S code = Levofloxacin) Nitrofurantoin (test - S code = Nitrofurantoin) Tetracycline (test - S code = Tetracycline) Vancomycin (test code SEE NOTES S S= Latoya ceptible, = Vancomycin) R= Resistant, I= Intermediate, N/A= Not Applicable [facility][H] [id number] 14:25:01 Test Item Value Reference Range Interpretation [...] Tetracycline (test code = - S Tetracycline) [facility][O] Urine Dipstick (In Office)2017-08-27 15:29:00 Test Item Value Reference Range Interpretation Comments LEUKOCYTES (test code = LEUKOCYTES) 2+ A NITRITE; Normal (test code = 82974-4) neg N UROBILINOGEN; Normal (test code = 0.2 N 21548-0) PROTEIN; Normal (test code = 84427-2) neg N pH (test code = pH) 6.5 N URINE BLOOD; Abnormal (test code = trace A 87863-7) SPECIFIC GRAVITY; Normal (test code = 1.020 N 2965-2) KETONES; Normal (test code = 47770-4) neg N BILIRUBIN; Normal (test code = 36575-8) neg N GLUCOSE; Normal (test code = 1547-9) neg N [facility]] CULTURE, URINE, [id number] 15:37:01 Test Item Value Reference Range Interpretation Comments ORGANISM (test code = Escherichia coli 699-9) FINAL REPORT (test 50,000 - 100,000 CFU/mL code = FINAL REPORT) Escherichia coli . 50,000 - 100,000 CFU/mL Skin Nina [facility][H] [id number] 15:37:01 Test Item Value Reference Range Interpretation [...] Resi stant, I= Intermediate, N/A= Not Applicable [facility][O] Urine Dipstick (In Office)2017-08-21 12:24:00 Test Item Value Reference Range Interpretation Comments LEUKOCYTES (test code = LEUKOCYTES) 2+ A NITRITE; Normal (test code = 02304-0) NEG N UROBILINOGEN; Normal (test code = 0.2 N 37203-6) PROTEIN; Abnormal (test code = 97084-9) 30 MG A pH (test code = pH) 5.5 N URINE BLOOD; Abnormal (test code = 2+ A 89411-9) SPECIFIC GRAVITY; Normal (test code = 1.030 N 2965-2) KETONES; Normal (test code = 07993-1) NEG N BILIRUBIN; Normal (test code = 71971-7) NEG N GLUCOSE; Normal (test code = 1547-9) NEG N [facility] Phys[facility][O] Urine Dipstick (In Office)2017-06-09 10:06:00 Test Item Value Reference Range Interpretation Comments LEUKOCYTES (test code = LEUKOCYTES) 2+ A NITRITE; Normal (test code = 56264-3) NEG N UROBILINOGEN; Normal (test code = 0.2 N 69419-2) PROTEIN; Normal (test code = 25279-3) NEG N pH (test code = pH) 7.0 N URINE BLOOD; Abnormal (test code = 2+ A 17587-2) SPECIFIC GRAVITY; Normal (test code = 1.010 N 2965-2) KETONES; Normal (test code = 86989-0) NEG N BILIRUBIN; Normal (test code = NEG N 63618-9) GLUCOSE; Abnormal (test code = 1547-9) 250 MG A [facility]] BV/ VAGINITIS PANEL DNA PROBE AFFIRM 2017-06-09 09:20:01 Test Item Value Reference Range Interpretation Comments Trichomonas vaginalis DNA (test code Negative Negative = 33623-0) Gardnerella vaginalis DNA; Abnormal Positive Negative A (test code = 6410-5) Grace sp. DNA; Abnormal (test code Positive Negative A = 06719-6) [facility]] CULTURE, URINE, [id number] 09:20:01 Test Item Value Reference Range Interpretation Comments ORGANISM (test code = Escherichia coli 699-9) FINAL REPORT (test >100,000 CFU/mL code = FINAL REPORT) Escherichia coli 10,000 - 50,000 CFU/mL Skin Nina [facility][] [id number] 09:20:01 Test Item Value Reference Range Interpretation Comments ORGANISM (test code Escherichia coli = 699-9) Ciprofloxacin (test .75 S code = Ciprofloxacin) Levofloxacin (test 1.5 S code = Levofloxacin) Trimethoprim/Sulfame 32 R thoxazole (test code = Trimethoprim/Sulfame thoxazole) Ceftriaxone (test .094 S S= Suscept ible, code = Ceftriaxone) R= Resis tant, I= Intermediate, N/A= Not Applicable [facility] [id number] 20:20:000[facility] BODY [id number] 20:20:000[facility]ann[facility] ONMQYO4324-19-69 20:20:00 Yellow (04/01/16 2:20 PM)[facility] NWOXLY3815-03-51 20:20:00Other (04/01/16 2:20 PM)[facility] OZALVT5687-95-18 20:20:00Slight Cloudy (04/01/16 2:20 PM)[facility]ann[facility] QDCWSV3045-21-25 20:20:011942Hjupkvue HermannBODY QINKMV1620-39-02 20:20:90338Jwgoivml HermannBODY KPTIYF9644-79-52 20:20:0044[facility]annB[facility] SLGJWX8142-78-20 20:20:0056[facility] XQNNSBWBIP5271-98-13 19:10:006.1[facility] FuthjnpKBXSKYYVLW0155-49-07 19:10:007.9 Memorial UbnmjcqSIFABWXESO1902-50-76 19:10:71451Ocbripfc HermannHEMATOLOGY 2016-04-01 19:10:00 Test Item Value Reference Range Interpretation Comments MCH (test code = MCH) 28.5 pg 27.0-31.0 Memorial RrbjqzqOWSQCLRKVO5980-52-13 19:10:0014.8[facility] HermannHEMATOLOGY 2016-04-01 19:10:0033.2[facility] XnkvosoPZIPUZZCZW5381-79-01 19:10:0030.8[facility] VnpxwobGGNJLPEYQH4636-87-02 19:10:003.59[facility] DmpzfpfJCLUXRIZSM0526-32-54 19:10:0010.2[facility] HzmwfcdOLRWXDECME7622-74-93 19:10:0085.9[facility] NODBEYSPLP7941-15-43 19:10:000.1[facility] PwlayaqLASMEBOETR1380-68-67 19:10:000.4 Memorial HqxffgkJMTKFUJAMG5708-92-06 19:10:004.0[facility] HermannHEMATOLOGY 2016-04-01 19:10:001.5[facility] MozjbfnIIJQNVLAAK3131-64-64 19:10:000.0[facility] GceahejIPBPPOZJIE0223-31-66 19:10:0025.0[facility] YoajxhkTLWXPGXIEV6157-13-62 19:10:006.9[facility] YtssnriNFHJVBLWLZ2850-04-91 19:10:0065.5[facility] ZUCPWJDSOT9264-84-50 19:10:000.6[facility] PcpnwxsKLIDELSEIS3391-61-89 19:10:002.0 Memorial WlcrwwuGIKAJXEYSI8343-30-57 19:07:0084[facility] HermannCHEM PANEL 2016-04-01 18:33:001.3[facility] HermannCHEM HOHJH3332-79-41 18:33:0091[facility] HermannCHEM YLMSO5348-44-34 18:33:0019[facility] HermannCHEM BLIIO2793-39-81 18:33:000.6[facility] HermannCHEM VRBBH5523-45-71 18:33:004.7[facility] HermannCHEM SGYBE4557-44-01 18:33:0012.0[facility] HermannCHEM DLOSG6359-37-04 18:33:000.2 [facility] HermannCHEM DTENY6124-35-40 18:33:15321Jztjlcpe HermannCHEM PANEL 2016-04-01 18:33:0030[facility] HermannCHEM VBOTR1451-64-76 18:33:0099[facility] HermannCHEM EVMXE0459-41-97 18:33:0014Mem[facility] HermannCHEM BGASI9702-09-57 18:33:96255Eskmoogc HermannCHEM JOKCG7502-28-65 18:33:000.74[facility] HermannCHEM RQFUD6018-66-77 18:33:005.0[facility] HermannCHEM TKBSK9088-50-97 18:33:98092 [facility] HermannCHEM XMVEJ1533-43-54 18:33:007.7[facility] HermannCHEM PANEL 2016-04-01 18:33:008.7[facility] HermannCHEM VEVVF4313-03-24 18:33:0021Mem[facility] HermannCHEM BKZYW9085-95-97 18:33:003.0[facility] HermannCHEM RSZHP3332-14-50 18:33:0027[facility] KifwufcBPEBPEHQWD3911-46-38 18:33:0044.4[facility] HermannCHEM BOIBI8173-96-20 14:38:0079[facility] HermannCHEM CHRDA8737-73-30 14:38:91452 [facility] HermannCHEM TYWYR5510-07-33 14:38:10926Iwuxrzis HermannCHEM PANEL 2015-08-03 14:38:004.6[facility] HermannCHEM XKPKW7206-51-41 14:38:009.4[facility] HermannCHEM OBUOD6764-46-67 14:38:0031Mem[facility] HermannCHEM AZFBZ6091-92-53 14:38:42055Raieapcw HermannCHEM ZWSUA0927-78-27 14:38:000.84[facility] HermannCHEM NJOMF1332-40-62 14:38:0017[facility] HermannCHEM LVDGN7735-30-25 14:38:0013.6 Memorial VrannfoMUMOBPMBTS3921-62-48 14:38:00 Test Item Value Reference Range Interpretation Comments MCH (test code = MCH) 28.8 pg 27.0-31.0 Memorial PlbmfsvWSZNLPVIHC1074-59-64 14:38:0012.1[facility] HermannHEMATOLOGY 2015-08-03 14:38:004.20[facility] LgkfqjfFNCXHKRMJY2131-23-92 14:38:0089.2[facility] OyionbyHADSZLPZEN6247-04-42 14:38:0037.5[facility] HzrpvtiXGGBZQTMJQ0835-96-53 14:38:007.4[facility] OcggipuDCAVNXORSJ1911-48-47 14:38:0032.3[facility] QTBRHDZIUI3904-31-54 14:38:0014.3[facility] CiifopqOHSFMKZYTA3328-53-96 14:38:00 9.3Mem[facility] MsctofbFEUFWWTVFF1620-68-28 14:38:09041Bxzlnmdw HermannHEMATOLOGY 2015-08-03 14:38:000.0[facility] EjggqdvAKBBMQYIPA4507-42-88 14:38:0061.4[facility] WbtkvieOMAZWAANYR7040-08-57 14:38:0030.9[facility] PlakyzyAVXVJXJPXG2100-92-76 14:38:002.3[facility] EicgqqaVYWAJWKCZH9975-17-66 14:38:000.4[facility] LDVSQDACSR9205-69-89 14:38:004.5[facility] WeaqjgsPJRGDFORYQ5560-14-49 14:38:000.5 Memorial XqncjkjGFLOWLXOMW1469-90-73 14:38:005.8[facility] HermannHEMATOLOGY 2015-08-03 14:38:001.4[facility] LirqwxdLOQXGZDKBS0272-95-17 14:38:000.1[facility] NmndtijBIKZYKLVOD2556-51-84 14:38:00Negative *NA*(08/03/15 9:38 AM)[facility] RglakdqMWGKHMGNSW9857-22-54 14:38:00Negative *NA*(08/03/15 9:38 AM)[facility]
--- OUTSIDE RECORDS SUMMARY | 2020-03-07 11:00 | XMS REPORT ---
:1960 Author Organization [facility] Address [address] [place], [address] [place] [address] Care Team Providers Name Role Phone Travis Unavailable [phone] PROBLEMS Type Condition ICD9-CM YIZ30-PB Onset Condition SNOMED Code Notes Code Code Dates Status Problem Diabetic E11.40 Active 384431291 neuropathy Problem Fibromyalgia M79.7 Active 643339817 Problem Insomnia G47.00 Active 970396983 Problem Morbid obesity E66.01 Active 661573541 Problem Vitamin D E55.9 Active 83354557 deficiency Problem Fatty liver K76.0 Active 835011560 Problem Rheumatoid M06.9 Active 73071485 arthritis Problem GERD without K21.9 Active 525852768 esophagitis Problem Benign essential I10 Active 59420035 HTN Problem Iron deficiency D50.0 Active 800117818 anemia due to chronic blood loss Problem Hyperlipidemia, E78.2 Active 658762981 mixed Problem Overactive bladder N32.81 Active 912861181 Problem Incontinence of R15.9 Active 08612517 feces, unspecified fecal incontinence type 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, shift work type Problem Restless leg G25.81 Active 04602918 syndrome Problem Urinary R32 Active 513727673 incontinence, unspecified type Problem Ankylosing 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.0 Active 1309059 spondylitis of multiple sites in spine Problem Bipolar disorder F31.9 Active 97955645 Problem Diabetes type 2, E11.9 Active 332520022 controlled Problem Obstructive sleep G47.33 Active 38260950 apnea Problem Primary M17.0 Active 650107823 osteoarthritis of both knees Problem Chronic J44.9 Active 07591558 obstructive pulmonary disease, unspecified COPD type Problem Psoriatic L40.50 Active 327324871 arthritis ALLERGIES Allergen (clinical drug Drug/Non Drug Allergy Reaction Allergy Type Onset Date Status ingredient) documented on EMR glimepiride Glimepiride([facility] Unknown Drug Allergy Active Code:[address]-46) metformin Metformin HCl([facility] Unknown Drug Allergy Activ e Code:[address]-98) pregabalin Lyrica([facility] Unknown Drug Allergy Active Code:[address]-26) canagliflozin Invokana([facility] Unknown Drug Allergy Active Code:[address]-92) ENCOUNTERS from 1960 to 2020-02-23 Encounter Location Date Provider Diagnosis [facility] [address] [facility] [address] [facility] [place] Feb, [facility] annual Family Medicine [address] [facility] [place] [address] subsequent Z00 .00 ; Encounter for screening mammo gram for malignant neoplasm of jillian ast Z12.31 and Asymptomatic menopausal stat e Z78.0 IMMUNIZATIONS Vaccine Route Administration Date Status Kenalog [...] Feb, Temperature 97.7 degrees Fahrenheit Feb, BMI 36.10 kg/m2 Feb, Oximetry 96 % Feb, Blood pressure systolic 134 mm Hg [...] Information RESULTS No Results REASON FOR VISIT [facility] MEDICAL (GENERAL) HISTORY Type Description Date [...] Treatment Notes Treatm ent Clinical Notes Feb, Medicare annual wellness visit, subsequent (ICD-10 - Z00.00) Feb, Encounter for screening mammogram for malignant neoplasm of breast (ICD-10 - Z12.31) Feb, Asymptomatic menopausal state (ICD-10 - Z78.0) PLAN OF TREATMENT Treatment Notes Test Name Order Date MAMMOGRAM, SCREENING 2020-02-23 DEXA, BONE DENSITY AXIAL SKELE 2020-02-23 Next Appt Details SUBSEQUENT ANNUAL WELLNESS VISIT 1 YEAR Reason: Provider Name:Luciano Travis, 2020-03-08 03:50:00 PM, [address], [place], [address], Insurance Providers Payer Name Payer Address Payer Insured Patient Coverage Cover age End Phone Name Relationship to Start Date Steve e Insured [employer] [address] [address] [phone] Kilo Armstrong self [place] [phone]
[2020-03-07 14:51] LABS: Absolute Lymphocytes (CBC) 1.8 K/uL (0.7-4.9); Basophils % 0.7 % (0-1.3); Hematocrit 39.2 % (36.0-45.0); Lymphocytes % 21.2 % (15.3-44.8); MPV 9.1 fL (7.6-11.3); RBC Red Blood Cell Count 4.76 M/uL (3.86-4.86)
[2020-03-07 14:59] LABS: Protime INR 0.99
[2020-03-07 15:07] LABS: ALT/SGPT 25 U/L (12-78); AST/SGOT 17 U/L (15-37); Albumin 3.5 g/dL (3.4-5.0); Alkaline Phosphatase 122 U/L (45-117); BUN Blood Urea Nitrogen 10 mg/dL (7-18); Bicarbonate 31 mmol/L (21-32); Bilirubin Direct 0.1 mg/dL (0-0.2); Bilirubin Total 0.4 mg/dL (0.2-1.0); Potassium 4.6 mmol/L (3.5-5.1); Protein, Total 7.9 g/dL (6.4-8.2); Sodium Level 134 mmol/L (136-145)
[2020-03-07 15:09] LABS: Glucose Level 434 mg/dL (74-106)
[2020-03-07 15:54] LABS: Barbiturates NEGATIVE (NEGATIVE); Benzodiazepines NEGATIVE (NEGATIVE); Cocaine NEGATIVE (NEGATIVE); METHAMPHETAM NEGATIVE (NEGATIVE); Methadone NEGATIVE (NEGATIVE); Opiates NEGATIVE (NEGATIVE); Phencyclidine NEGATIVE (NEGATIVE); THC Cannibis NEGATIVE (NEGATIVE)
[2020-03-07 16:31] LABS: Urine Blood 2+ (NEG); Urine Glucose 3+ (NEG); Urine Protein TRACE (NEG)
[2020-03-07] MEDS ORDERED: NA CHLORIDE 0.9% 1,000 ML ONE (16:33)
[2020-03-07] MEDS ORDERED: INSULIN -REGULAR HUMAN 50 UNIT/0.5 ML ML ONE (16:33)
--- NOTE | 2020-03-07 18:37 | EDPHYS ---
Physician Documentation [facility] Name: Bob Armstrong Age: 59 yrs Sex: Female : 1960 Arrival Date: 03/07/2020 Time: 10:41 Bed 26 Private MD: FOUZIA Physician Braulio Tellez HPI: 03/07 13:53 This 59 yrs old Female presents to ER via Ambulatory with complaints of jmm Hallucinations. 13:53 The patient presents to the emergency department with psychosis, has experienced visual jmm hallucinations, seeing bugs. Onset: The symptoms/episode began/occurred gradually, 6 month(s) ago. This is a 59 year old female with a history of depression, hlp, DM, HTN, insomnia that presents to the ED with complaints of visual hallucinations. Patient states she has been seeing [place] and is currently taking lithium for this. Patient states hallucinations have increased since yesterday. Patient states hallucinations are normally seeing things of on floor running away, yesterday they were spiders on the [place]aney. Denies SI or HI, denies command hallucinations. . Historical: - Allergies: 11:01 Lyrica; ss 11:01 Methylprednisolone; ss 11:01 zpack; ss - PMHx: 11:01 Depression; Hyperlipidemia; Diabetes - NIDDM; Hypertension; insomnia; osteoarthritis; ss Rheumatoid Arthritis; - PSHx: 11:01 Bladder suspension; ss - Immunization history:: Adult Immunizations unknown. - Social history:: Smoking status: Patient denies any tobacco usage or history of. ROS: 13:53 Constitutional: Negative for fever, chills, and weight loss, Cardiovascular: Negative jmm for chest pain, palpitations, and edema, Respiratory: Negative for shortness of breath, cough, wheezing, and pleuritic chest pain. 13:53 Psych: Positive for visual hallucinations. 13:53 All other systems are negative. Exam: 13:53 Constitutional: This is a well developed, well nourished patient who is awake, alert, jmm and in no acute distress. Head/Face: atraumatic. Eyes: EOMI, no conjunctival erythema appreciated ENT: Moist Mucus Membranes Neck: Trachea midline, Supple Chest/axilla: Normal chest wall appearance and motion. Cardiovascular: Regular rate and rhythm. No edema appreciated Respiratory: Normal respirations, no respiratory distress appreciated Abdomen/GI: Non distended, soft Back: Normal ROM Skin: General appearance color normal MS/ Extremity: Moves all extremities, no obvious deformities appreciated, no edema noted to the lower extremities Neuro: Awake and alert, normal gait Psych: Behavior is normal, Mood is normal, Patient is cooperative and pleasant Vital Signs: 10:56 BP 134 / 74; Pulse 82; Resp 18; Temp 99.1(TE); Pulse Ox 98% on R/A; Weight 117.93 kg; ss Height 5 ft. 11 in. (180.34 cm); Pain 0/10; 13:45 BP 134 / 64; Pulse 75; Resp 16; Pulse Ox 98% on R/A; vg1 15:00 BP 117 / 64; Pulse 74; Resp 16; Pulse Ox 100% on R/A; vg1 16:00 BP 132 / 59; Pulse 70; Resp 18; Pulse Ox 98% on R/A; vg1 17:00 BP 127 / 76; Pulse 70; Resp 16; Pulse Ox 98% on R/A; vg1 18:00 BP 118 / 73; Pulse 72; Resp 14; Pulse Ox 98% on R/A; vg1 10:56 Body Mass Index 36.26 (117.93 kg, 180.34 cm) ss MDM: 13:34 Patient medically screened. estefania 18:33 Data reviewed: vital signs, nurses notes. Counseling: I had a detailed discussion with jf the patient and/or guardian regarding: the historical points, exam findings, and any diagnostic results supporting the discharge/admit diagnosis, lab results, the need for outpatient follow up, to return to the emergency department if symptoms worsen or persist or if there are any questions or concerns that arise at home. ED course: [facility] evaluated the patient. Patient is safe for dispo. Will follow up with patient tomorrow for further evaluation. I discussed the patient with the patient whom agrees with the plan of care. . 03/07 13:32 Order name: Acetaminophen [facility] 03/07 13:32 Order name: Basic Metabolic Panel [facility] 03/07 13:32 Order name: CBC with Diff [facility] 03/07 13:32 Order name: ETOH Level [facility] 03/07 13:32 Order name: Hepatic Function [facility] 03/07 13:32 Order name: PT-INR [facility] 03/07 13:32 Order name: Ptt, Activated [facility] 03/07 13:32 Order name: Salicylate; Complete Time: 15:24 [facility] 03/07 13:32 Order name: Urine Drug Screen; Complete Time: 15:59 [facility] 03/07 13:33 Order name: Acetaminophen Level; Complete Time: 15:16 [facility] 03/07 13:33 Order name: Basic Metabolic Panel; Complete Time: 15:16 [facility] 03/07 13:33 Order name: CBC with Automated Diff; Complete Time: 15:48 [facility] 03/07 13:33 Order name: Alcohol Serum/Plasma; Complete Time: 15:16 [facility] 03/07 13:33 Order name: Liver (Hepatic) Function; Complete Time: 15:16 [facility] 03/07 13:32 Order name: EKG; Complete Time: 13:33 [facility] 03/07 13:32 Order name: EKG - Nurse/Tech; Complete Time: 14:56 [facility] 03/07 13:32 Order name: IV Saline Lock; Complete Time: 14:30 [facility] 03/07 13:32 Order name: Labs collected and sent; Complete Time: 14:31 [facility] 03/07 13:32 Order name: Urine Dipstick-Ancillary (obtain specimen); Complete Time: 15:16 [facility] 03/07 13:33 Order name: Protime (+INR); Complete Time: 15:08 [facility] 03/07 13:33 Order name: PTT, Activated Partial Thromb; Complete Time: 15:08 [facility] 03/07 15:15 Order name: Urine Dipstick--Ancillary (enter results); Complete Time: 16:33 03/07 15:19 Order name: [place]; Complete Time: 15:53 [facility] 03/07 18:23 Order name: Glucose, Ancillary Testing; Complete Time: 18:37 EDMS Administered Medications: 16:27 Drug: Insulin Regular Human 10 units {Co-Signature: ll1 (Avery Gil RN).} Route: IVP; vg1 Site: left antecubital; 18:50 Follow up: Response: No adverse reaction vg1 16:28 Drug: NS 0.9% 1000 ml Route: IV; Rate: 1 bolus; Site: left antecubital; vg1 18:50 Follow up: IV Status: Completed infusion; IV Intake: 1000ml vg1 Disposition: 03/08 11:10 Co-signature as Attending Physician, Braulio Tellez MD I agree with the assessment and [facility] plan of care. Disposition: 03/07/20 18:36 Discharged to Home. Impression: Visual hallucinations, Urinary tract infection, site not specified. - Condition is Stable. - Discharge Instructions: Urinary Tract Infection, Adult. - Prescriptions for Cephalexin 500 mg Oral Capsule - take 1 capsule by ORAL route every 8 hours for 10 days; 30 capsule. - Medication Reconciliation Form, Thank You Letter, Antibiotic Education, Prescription Opioid Use form. - Follow up: Private Physician; When: 2 - 3 days; Reason: Recheck today's complaints, Continuance of care, Re-evaluation by your physician. Signatures: Dispatcher [employer] EDBraulio Zuleta MD MD cha Mickail, Joel, PA PA jmm Smirch, Shelby, DANTE RN ss Sinai Brar RN RN vg1 Avery Gil RN ll1 Corrections: (The following items were deleted from the chart) 03/07 18:49 18:36 03/07/2020 18:36 Discharged to Home. Impression: Visual hallucinations; Urinary vg1 tract infection, site not specified. Condition is Stable. Forms are Medication Reconciliation Form, Thank You Letter, Antibiotic Education, Prescription Opioid Use. Follow up: Private Physician; When: 2 - 3 days; Reason: Recheck today's complaints, Continuance of care, Re-evaluation by your physician. jf
--- NOTE | 2020-03-07 18:37 | ER ---
Nurse's Notes [facility] Name: Bob Armstrong Age: 59 yrs Sex: Female : 1960 Arrival Date: 03/07/2020 Time: 10:41 Bed 26 [facility] MD: Diagnosis: Visual hallucinations;Urinary tract infection, site not specified Presentation: 03/07 10:56 Chief complaint: Patient states: "I went to see Dr. Travis, and he asked me if I would ss come to the ER." Pt c/o hallucinations that have gotten worse since yesterday and feeling fidgety. Coronavirus screen: Client denies travel out of the [place] in the last 14 days. Ebola Screen: Patient denies exposure to infectious person. Patient denies travel to an Ebola-affected area in the 21 days before illness onset. Initial Sepsis Screen: Does the patient meet any 2 criteria? No. Patient's initial sepsis screen is negative. Does the patient have a suspected source of infection? No. Patient's initial sepsis screen is negative. Risk Assessment: Do you want to hurt yourself or someone else? Patient reports no desire to harm self or others. Onset of symptoms is unknown. 10:56 Method Of Arrival: Ambulatory ss 10:56 Acuity: JERRY 3 ss Historical: - Allergies: 11:01 Lyrica; ss 11:01 Methylprednisolone; ss 11:01 zpack; ss - PMHx: 11:01 Depression; Hyperlipidemia; Diabetes - NIDDM; Hypertension; insomnia; osteoarthritis; ss Rheumatoid Arthritis; - PSHx: 11:01 Bladder suspension; ss - Immunization history:: Adult Immunizations unknown. - Social history:: Smoking status: Patient denies any tobacco usage or history of. Screenin:45 Abuse screen: Denies threats or abuse. Nutritional screening: No deficits noted. vg1 Tuberculosis screening: No symptoms or risk factors identified. Fall Risk No fall in past 12 months (0 pts). No secondary diagnosis (0 pts). No IV (0 pts). Ambulatory Aid- None/Bed Rest/Nurse Assist (0 pts). Gait- Normal/Bed Rest/Wheelchair (0 pts) Mental Status- Oriented to own ability (0 pts). Total Mcgarry Fall Scale indicates No Risk (0-24 pts). Assessment: 13:40 General: Appears in no apparent distress. comfortable, Behavior is calm, cooperative. vg1 Pain: Denies pain. Neuro: Level of Consciousness is awake, alert, obeys commands, Oriented to person, place, time, situation. Cardiovascular: Patient's skin is warm and dry. Respiratory: Airway is patent Respiratory effort is even, unlabored. GI: No signs and/or symptoms were reported involving the gastrointestinal system. : No signs and/or symptoms were reported regarding the genitourinary system. EENT: No signs and/or symptoms were reported regarding the EENT system. Derm: Skin is intact, is healthy with good turgor. Musculoskeletal: Circulation, motion, and sensation intact. 15:10 Reassessment: ANA MARIA Ramirez notified of critical lab value: Glucose of 434. 16:29 Reassessment: Patient appears in no apparent distress at this time. No changes from vg1 previously documented assessment. Patient and/or family updated on plan of care and expected duration. Pain level reassessed. Patient is alert, oriented x 3, equal unlabored respirations, skin warm/dry/pink. 17:30 Reassessment: Patient currently speaking to [facility] via [employer]. vg1 18:48 Reassessment: Patient appears in no apparent distress at this time. Patient is alert, vg1 oriented x 3, equal unlabored respirations, skin warm/dry/pink. Patient denies pain at this time. Vital Signs: 10:56 BP 134 / 74; Pulse 82; Resp 18; Temp 99.1(TE); Pulse Ox 98% on R/A; Weight 117.93 kg; Height 5 ft. 11 in. (180.34 cm); Pain 0/10; 13:45 BP 134 / 64; Pulse 75; Resp 16; Pulse Ox 98% on R/A; vg1 15:00 BP 117 / 64; Pulse 74; Resp 16; Pulse Ox 100% on R/A; vg1 16:00 BP 132 / 59; Pulse 70; Resp 18; Pulse Ox 98% on R/A; vg1 17:00 BP 127 / 76; Pulse 70; Resp 16; Pulse Ox 98% on R/A; vg1 18:00 BP 118 / 73; Pulse 72; Resp 14; Pulse Ox 98% on R/A; vg1 10:56 Body Mass Index 36.26 (117.93 kg, 180.34 cm) ED Course: 10:41 Patient arrived in ED. mr 11:00 Triage completed. 11:01 Arm band placed on right wrist. 13:30 James Gutierrez PA is PHCP. [facility] 13:30 Braulio Tellez MD is Attending Physician. [facility] 13:40 Sinai Brar, DANTE is Primary Nurse. vg1 13:45 Patient has correct armband on for positive identification. Bed in low position. Call vg1 light in reach. Side rails up X 1. 14:31 Initial lab(s) drawn, by ED staff, sent to lab. Inserted saline lock: 20 gauge in left vg1 antecubital area, using aseptic technique. ,using aseptic technique. Done by DANTE Simeon Blood collected. 15:17 Urine collected: clean catch specimen, cloudy. vg1 18:47 No provider procedures requiring assistance completed. IV discontinued, intact, vg1 bleeding controlled, No redness/swelling at site. Pressure dressing applied. Administered Medications: 16:27 Drug: Insulin Regular Human 10 units {Co-Signature: ll1 (Avery Gil RN).} Route: IVP; vg1 Site: left antecubital; 18:50 Follow up: Response: No adverse reaction vg1 16:28 Drug: NS 0.9% 1000 ml Route: IV; Rate: 1 bolus; Site: left antecubital; vg1 18:50 Follow up: IV Status: Completed infusion; IV Intake: 1000ml vg1 Intake: 18:50 IV: 1000ml; Total: 1000ml. vg1 Outcome: 18:36 Discharge ordered by . [facility] 18:47 Discharged to home ambulatory. vg1 18:47 Condition: stable 18:47 Discharge instructions given to patient, Instructed on discharge instructions, the need for admit, medication usage, Demonstrated understanding of instructions, follow-up care, medications, Prescriptions given X 1. 18:49 Patient left the ED. vg1 Signatures: James Gutierrez PA PA jmdeepa Moyer Miracle mr JeffKristel layne, RN RN Sinai Brar, DANTE RN vg1 Avery Gil RN ll1
[2020-03-07 18:57] VITALS: TEMP 99.1
[2020-03-07 19:01] VITALS: O2SAT 98
[2020-03-07 19:04] VITALS: BP 118/73
--- NOTE | 2020-03-08 06:28 | EKG ---
Test Date: 2020-03-07 Test Time: 14:52:46 [employer] Top Hat Body Maker: ELIZABETH MEASUREMENT RESULTS: Intervals: Rate: 62 PA: 170 QRSD: 90 QT: 470 QTc: 477 [place]: P: 50 PA: 170 QRS: 43 T: 29 INTERPRETIVE STATEMENTS: Normal sinus rhythm Low voltage QRS T wave abnormality, consider anterior ischemia Prolonged QT Abnormal ECG Compared to ECG 09/30/2019 02:21:05 T-wave abnormality now present Possible ischemia now present Prolonged QT interval now present Myocardial infarct finding no longer present Electronically Signed On 03-08-20 06:27:06 FRONT DESK AGENT by Anival Hargrove
== END 2020-03-07 18:49 | disposition home or self-care (01) ==
LOC: ER 10:36
DX: N39.0 Urinary tract infection, site not specified (principal); I10 Essential (primary) hypertension; Z88.1 Allergy status to other antibiotic agents; Z88.8 Allergy status to other drugs, medicaments and biological substances
CPT/HCPCS: 85025; 80048; 36415; 80320; 80329 ×2; 85610; 80178; 82947; 80076; 80307 ×8; 85730; 81003; J7030; 93005; 96361; 96374; 99284

== ENCOUNTER 2020-05-21 18:30 | Emergency (ER) | payer OTHER ==
--- OUTSIDE RECORDS SUMMARY | 2020-05-21 18:36 | XMS REPORT | Continuity of Care Document ---
:1960 Author Organization [facility] t Address [address] [place] [address] Care Team Providers Name Role Phone Tera Travis DO Primary Care Physician Mak ANN, [place] Attending Clinician Mily ANN Attending Clinician Starr Main Attending Clinician RUFUS Attending Clinician Unavailable [id number] Attending Clinician Unavailable Ina Rutherford Attending Clinician LAVERN Attending Clinician Unavailable Yolanda Underwood Attending Clinician MILY Admitting Clinician Unavailable Payers Payer Name Policy Type Policy Effective Date Expiration Date Sour ce Number HUMANA [id number] 2020 [place] MEDICAREHUMANA 00:00:00 [employer] MEDICARE PPO/PFFS/ERS [id number] 2020 -PresentPPO BCBSBCBS CHOICE [id number] 2013 [place] PPO/FEDERAL EMPL 3 00:00:00 Methodis t EUDigmgltmk49838/02/11 014-PresentPPO CVCPCVCP [id number] 2013 [place] AAOQufxkybhq12866/02/12 00:00:00 Meth odjulio c 20 Herminia VALADEZ, [address] [place] [address] [id number] Problems Condition Condition Condition Status Onset Resolution Last Treating Co mments Source Name Details Category Date Date Treatment Clinician Date 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 3-25 Me thodi e of one e of one 00:00: st eye eye 00 H92.01 - Diagnosis Active 2019-022019-11-25 M bhavinria "OTALGIA, 0- 12:00:00 l RIGHT EAR" H92.01 - 00:01: naomi "OTALGIA, 00 RIGHT EAR" Active 11/11/2019 [facility] [place] RIGHT KNEE Diagnosis Active 2016-04-01 Memoria PAIN 2-20 12:48:00 l RIGHT 00:00: [place] KNEE PAIN 00 Active 04/01/2016 [place] STRESS Diagnosis Active 2015-08-10 Mem oria URINARY 4-14 07:24:00 l INCONTINEN STRESS 00:00: Herm archana CE-N39.3 / URINARY 00 URET INCONTINEN CE-N39.3 / URET Active 05/25/2015 [place] R31.2 - Diagnosis Active 2015-06-06 Az moria OTHER 3-14 16:22:00 l MICROSCOPI R31.2 - 00:01: Her brito C OTHER 00 HEMATURIA MICROSCOPI C HEMATURIA Active 04/24/2015 [facility] OPID [place] 727.00 - Diagnosis Active 2011-09-02 M emoria SYNOVITIS 7-20 08:58:00 l NOS 727.00 - 00:01: Randy n SYNOVITIS 00 NOS Active 08/30/2011 [facility] History of History of Problem Resolve Univers arthritis arthritis [id number] [facility] [place] [facility] History of History of Problem Resolve Univers depression depression HL7.[id number] [facility] [place] [facility] History of History of Problem Resolve Univers diabetes diabetes [id number].CCDAR2 d it y of mellitus mellitus [place] [facility] History of History of Problem [...] Univers [id number] [facility] [place] [facility] Anxiety Problem Resolve 2019-11-26 Mem oria (finding) d 23:02:23 l Anxiety [place] (finding) Resolved Problem 11/26/2019 Tomasa Farrar [place] Chronic Problem Resolve 2019-11-26 Mem oria obstructiv d 23:02:23 l e lung Chronic [place] disease obstructiv (disorder) e lung disease (disorder) Resolved Problem 11/26/2019 Tomasa Farrar [place] Depressive Problem Resolve 2019-11-26 Memoria disorder d 23:02:23 l (disorder) Randy n Depressive disorder (disorder) Resolved Problem 11/26/2019 Tomasa Farrar [place] Diabetes Problem Resolve 2019-11-26 Me moria mellitus d 23:02:23 l (disorder) Diabetes He rmann mellitus (disorder) Resolved Problem 11/26/2019 Tomasa Farrar [place] Endometrio Problem Resolve 2019-11-26 Memoria sis d 23:02:23 l (disorder) Randy n Endometrio sis (disorder) Resolved Problem 11/26/2019 Tomasa Farrar [place] Fibromyosi Problem Resolve 2019-11-26 Memoria tis d 23:02:23 l (disorder) Randy n Fibromyosi tis (disorder) Resolved Problem 11/26/2019 Tomasa Farrar [place] Hypertensi Problem Resolve 2019-11-26 Memoria ve d 23:02:23 l disorder, [place] systemic Hypertensi arterial ve (disorder) disorder, systemic arterial (disorder) Resolved Problem 11/26/2019 Tomasa Farrar [place] Lumbar Problem Resolve 2019-11-26 Alonzo summer spondylosi d 23:02:23 l s Lumbar [place] (disorder) spondylosi s (disorder) Resolved Problem 11/26/2019 Tomasa Farrar [place] Motion Problem Resolve 2019-11-26 Alonzo summer sickness d 23:02:23 l (disorder) Motion Herm archana sickness (disorder) Resolved Problem 11/26/2019 Tomasa Farrar [place] Neuropathy Problem Resolve 2019-11-26 Memoria (disorder) d 23:02:23 l [place] Neuropathy (disorder) Resolved Problem 11/26/2019 Tomasa Farrar [place] Bladder Problem Resolve 2019-11-26 Mem oria muscle d 23:02:23 l dysfunctio Bladder Her brito n - muscle overactive dysfunctio (disorder) n - overactive (disorder) Resolved Problem 11/26/2019 Tomasa Farrar [place] Rheumatoid Problem Resolve 2019-11-26 Memoria arthritis d 23:02:23 l (disorder) Randy iqbal Rheumatoid arthritis (disorder) Resolved Problem 11/26/2019 Tomasa Farrar [place] Sleep Problem Resolve 2019-11-26 Alonzo summer apnea d 23:02:23 l (finding) Sleep Randy n apnea (finding) Resolved Problem 11/26/2019 Tomasa Farrar [place] History of Past Illness Condition Condition Condition Status Onset Resolution Last Treating Co mments Source Name Details Category Date Date Treatment Clinician Date Discharge Problem 2016-04-04 2016-04-04 Memoria Diagnosis: 2-20 04:32:29 04:32:29 l Pain and 06:00: [place] swelling Discharge 00 of right Diagnosis: knee Pain and swelling of right knee 04/01/2016 04/04/2016 [place] Allergies, Adverse Reactions, Alerts Allergy Allergy Status Severity Reaction(s) Onset Inactive Treating Comm ents Source Name Type Date Date Clinician P[place]al Propensi Active Swelling 2015-02 [place] in ty to 02-18 Methodi adverse 00:00: st reaction 00 s to drug Lyrica drug Active Univers CAPS allergy [facility] [place] [facility] Adhesive Adhesive Active Memori a l [place] Latex Latex Active Memoria l [place] Lyrica Lyrica Active Memoria l [place] Invokana Adverse Active Info Not [facility] Family History Family Member Diagnosis Comments Start Date Stop Date Source Mother Family history of [facility] [place] diabetes mellitus Physici ans Mother Family history of [facility] [place] lung cancer Physicians Mother Family history of [facility] [place] hypertension Physicians Father Family history of [facility] [place] stroke Physicians Brother Family history of [facility] [place] diabetes mellitus Physici ans Natural father Stroke [facility] thodist Natural mother Lung cancer [place] Tomasa ethodist Social History Social Habit Start Date Stop Date Quantity Comments Source Exposure to Not sure [place] Metho dist SARS-CoV-2 (event) Alcohol intake 2020-05-04 2020-05-04 Current Sridhar Roth thodist 00:00:00 00:00:00 non-drinker of alcohol (finding) Social History 2015-08-03 2015-08-03 [facility] Arash ermann 14:18:54 14:18:54 Sex [birth year] Sridhar Randolph ethodist 00:00:00 00:00:00 Smoking Status Start Date Stop Date Source Never smoker [place] Methodis t Medications Ordered Filled Start Stop Current Ordering Indication Dosage Frequency Signature Comments Components Source Medication Medication Date Date Medication? Clinician (SIG) Name Name thiamine 2020- Yes 50mg QD Take 0.5 [place] mononitrate 3-27 04-26 tablets Meth gwen , vit B1, 00:00: 23:59 ([address] (B-1) 100 00 :00 total) by mg tablet mouth daily for 30 days. cyclobenzap 2020- No 10mg Q.[id number] Take 10 mg [place] rine 3-26 03-26 [id number] by mouth 3 Me thodi (FLEXERIL) 16:43: 00:00 3D (three) st 10 MG 22 :00 times a tablet day. celecoxib Yes 200mg Q.5D Take 200 Maryana ston (CeleBREX) 3-26 mg by Methodi 200 MG 16:43: mouth 2 st capsule 19 (two) times a day. hydroxychlo Yes Q.5D Take by Maryana ston roquine 3-26 mouth 2 Methodi (PLAQUENIL) 16:43: (two) st 200 mg 19 times a tablet day. PILOCARPINE Yes 7.5mg Q.[id number] Take 7.5 [place] HCL ORAL 3-26 [id number] mg by Meth gwen 16:43: 3D mouth 3 st 19 (three) times a day. LISINOPRIL- Yes 2{tbl} QD Take 2 [place] HCTZ 3-26 tablets by Methodi 20-12.5 MG 16:43: mouth st COMBO DOSE 19 daily. exenatide Yes 2mg Q1W Inject 2 [place] microsphere 3-26 mg under Meth gwen s 16:43: the skin st (BYDUREON) 19 every 7 2 mg/0.65 days. mL pen injector aspirin 0 Yes 81mg QD Take 81 mg [place] (ECOTRIN) 3-26 by mouth Method i 81 MG 16:43: daily. st enteric 19 coated tablet armodafinil Yes 250mg QD Take 250 [place] (NUVIGIL) 3-26 mg by Methodi 250 mg 16:43: mouth st tablet 19 daily. ALPRAZolam 0 Yes .5mg Q.5D Take 0.5 Maryana ston (NIRAVAM) 3-26 mg by Methodi 0.5 MG 16:43: mouth 2 st disintegrat 19 (two) ing tablet times a day as needed for anxiety. cycloSPORIN Yes 1[drp] Q.5D Administer [place] E 3-26 1 drop to Methodi (RESTASIS) 16:43: both eyes st 0.05 % 19 2 (two) ophthalmic times a emulsion day. doxepin Yes 10mg QD Take 10 mg [place] (SINEquan) 3-26 by mouth Metho di 10 MG 16:43: nightly. st capsule 19 leflunomide Yes 20mg QD Take 20 mg [place] (ARAVA) 20 3-26 by mouth Metho di MG tablet 16:43: nightly. st 19 atorvastati Yes 10mg QD Take 10 mg [place] n (LIPITOR) 3-26 by mouth Meth gwen 10 mg 16:43: nightly. st tablet 19 lithium 300 0 Yes 300mg Q.[id number] Take 300 [place] MG capsule 3-26 [id number] mg by Az thodi 16:43: 3D mouth 3 st 19 (three) times a day with meals. metFORMIN 0 Yes 1000mg Q.5D Take 1,000 [place] XR 3-26 mg by Methodi (GLUCOPHAGE 16:43: mouth 2 st -XR) 500 mg 19 (two) 24 hr times a tablet day with meals. sertraline Yes 50mg QD Take 50 mg [place] (ZOLOFT) 50 -26 by mouth Meth gwen MG tablet 16:43: daily. st 19 golimumab Yes Q30D Infuse [place] (SIMPONI 3-26 into a Methodi ARIA IV) 16:43: venous st 19 catheter every 30 (thirty) days. insulin Yes 22U Q.[id number] Inject 22 [place] lispro - [id number] Units Method i (HUMALOG 16:43: 3D under the st KWIKPEN 19 skin 3 INSULIN (three) SUBQ) times a day with meals. insulin Yes 11U QD Inject 11 [place] lispro 3-26 Units Methodi (HUMALOG 16:43: under the st KWIKPEN 19 skin INSULIN nightly. SUBQ) insulin Yes 160U QD Inject 160 [place] GLARGINE 3-26 Units Methodi (Toujeo 16:43: under the st SoloStar 19 skin every U-300 evening. Insulin) 300 unit/mL (1.5 mL) insulin pen predniSONE 2020- No 20mg QD Take 1 [place] (DELTASONE) - 03-31 tablet (20 M ethodi 20 mg 00:00: 23:59 mg total) st tablet 00 :00 by mouth daily for 5 days. suvorexant 2020- No QD Take by Maryana casas (BELSOMRA) - 03-25 mouth Methodi 20 mg 16:42: 00:[address] tablet 42 :00 simvastatin 2020- No 40mg QD Take 40 mg [place] (ZOCOR) 40 -04 05-25 by mouth Meth gwen MG tablet 16:42: 00:[address] 25 :00 milnacipran 2020- No 50mg Q.5D Take 50 mg [place] (SAVELLA) 3-04 05-25 by mouth 2 Met hodi 50 mg 16:41: 00:00 (two) st tablet 54 :00 times a day. METHOTREXAT 2020- No .7mL Q7D Inject 0.7 [place] E SODIUM 3-25 03-25 mL as Methodi INJ 16:41: 00:[address] 41 :00 once a week at 4pm. insulin 2020- No 120U QD Inject 120 Maryana ston degludec 05-04 Units Methodi (TRESIBA 16:41: 00:[address] FLEXTOUCH 18 :00 skin U-100) 100 daily. unit/mL (3 mL) insulin pen folic acid 2020- No 2mg QD Take 2 mg [place] (FOLVITE) 1 05-04 by mouth Met hodi MG tablet 16:40: 00:[address] 07 :00 dexlansopra 2020- No 60mg QD Take 60 mg [place] zole 05-04 by mouth Methodi (DEXILANT) 16:39: 00:[address] 60 mg 30 :00 capsule cranberry 2020- No 1{capsu QD Take 1 [place] extract 05-04 le} capsule by Albino Saldana) 16:38: 00:[address] 200 mg 50 :00 daily. capsule capsule clopidogrel No 75mg QD Take 75 mg [place] (PLAVIX) 75 05-04 by mouth Met hodi mg tablet 16:38: 00:[address] 27 :00 bromfenac 2020- No 1[drp] QD Administer [place] (XIBROM) 05-04 1 drop Methodi 0.09 % 16:37: 00:[address] ophthalmic 23 :00 left eye solution daily. ARIPiprazol 2020- No 20mg QD Take 20 mg [place] e (ABILIFY) 05-04 by mouth Met hodi 10 MG 16:36: 00:[address] tablet 49 :00 Amoxicillin Amoxicillin 2020- No Luciano [address] [facility] [address] [facility] 00[facility] Memoria 00 [facility] Furosemide Furosemide 2018- Yes Luciano 0.[address] [facility]- [facility] - 00:[facility]: Memoria [facility] Hydrocodone Hydrocodone 2017-02 Yes Luciano [address] -Acetaminop -Acetaminop 0- [facility] as needed [facility] - hen hen 00:00: Memoria 00 l [facility] Tolterodine Tolterodine 2018-0 Yes BLACK 1 PO QD Univers Tartrate ER Tartrate ER 4-30 [place] ity of 4 MG Oral 4 MG Oral 00:00: N.P. Lionel as Capsule Capsule 00 Physici Extended Extended ans Release 24 Release 24 Hour Hour Zetia No Notes: Memoria 08-10 (Same as: l 14:00: Zetia) [place] Dexilant 2015-0 No 60 mg, Memoria 08-10 Route: PO, l 14:00: Drug form: [place] 00 DRC, Daily, Dosing Weight 134.5, kg, Start date: 08/11/15 9:00:00 CDT, Duration: 30 day, Stop date: 09/09/15 9:00:00 CDT Nuvigil 2015-0 No 250 mg, Memoria 08-10 Route: PO, l 14:00: Drug form: [place] 00 TAB, Daily, Dosing Weight 134.5, kg, [...] PO, l 14:00: Drug form: [place] 00 CAP, Daily, Dosing Weight 134.5, kg, Start date: 08/11/15 9:00:00 CDT, Duration: 30 day, Stop date: 09/09/15 9:00:00 CDT Hydrochloro 2016-0 No 1 tab, Alonzo summer thiazide 08-10 Route: PO, l 12.5 MG / 14:00: Drug Form: Mikel salgado Lisinopril 00 TAB, 10 MG Oral Dosing Tablet Weight 134.5, kg, Daily, Start date: 08/11/15 9:00:00 CDT, Duration: 30 day, Stop date: 09/09/15 9:00:00 CDT Savella No 50 mg, Memoria 08-09 Route: PO, l 22:00: Drug form: TAB, BID, Dosing Weight 134.5, kg, Start date: 08/10/15 17:00:00 CDT Ketorolac No 4 days Memor ia 6-30 l 17:00: MEDICATION WASTE Product Size: 30 mg Product Wasted: _15__ mg Insulin, No Notes: Memoria Aspart, 6 Roll in l Human 16:29: palms of hands gently; Do not shake vigorously . (Same as: NovoLOG) "single patient use only" WASTE: F/P - Black; E - Municipal Trash Bin Stable for 28 days at room temperatur e. Expires in days from ____Date Levalbutero No Notes: SEE Memoria l 6-30 RT l 16:29: DOCUMENTAT ION (Same as:Xopenex ) Non-Formul george Naloxone No Notes: Memoria 6-30 Same as l 16:29: Narcan Meperidine No Notes: Memor ia 30 (Same as: l 16:29: Demerol) "Use Precaution in Elderly, Seizure disorders, and Renal impairment " Promethazin No Notes: Do M emoria e 08-09 not give l 16:29: IV push. (Same as: Phenergan) Dexamethaso No Notes: Alonzo summer ne 30 Concentrat l 16:29: ion: 4mg/ml Ondansetron No Notes: Alonzo summer -30 (Same as: l 16:29: Zofran) MEDICATION WASTE Product Size: 4 mg Product Wasted: ___ mg Diphenhydra No Notes: Alonzo summer mine 30 (Same as: l 16:29: Benadryl) Albuterol No Notes: SEE Me moria 0.83 MG/ML 6-30 RT l Inhalant 16:29: DOCUMENTAT Her brito Solution 00 ION (Same as: Proventil) Atropine No Notes: Mem oria 6-30 MEDICATION l 16:29: WASTE Product Size: 0.4 mg Product Wasted: _0.2__ mg Glycopyrrol No Notes: Alonzo summer ate -30 (Same as: l 16:29: Robinul) Phenylephri No Notes: Alonzo summer ne -30 Same as: l 16:29: Erik-Syneph [place] 00 rine Albuterol No Notes: Memori a 0.833 MG/ML -30 (Same as: l / 16:29: Duoneb) Ipratropium 00 [place] 0.167 MG/ML Inhalant Solution [DuoNeb] celecoxib Yes Notes: Memori a 6-30 NSAID. l 16:29: Please check indication . Not for seizure. (Same As: CeleBREX) 72 HR Yes Notes: Memoria Scopolamine -30 Change l 0.0139 16:29: patch [place] MG/HR 00 every 72 Transdermal hours Patch (Same as: Transderm- Scop) Midazolam No Notes: Memori a 6-30 (Same as: l 16:29: Versed) MEDICATION WASTE Product Size: 2 mg Product Wasted: _1__ mg Ephedrine No Notes: Memori a 6-30 (Same as: l 16:29: ePHEDrine [place] 00 Sulfate) Flumazenil No Notes: Memor ia 6-30 (Same as: l 16:29: Romazicon) Calcium No 1,000 mL, Memor ia Chloride 6-30 Rate: 125 l 0.0014 16:29: ml/hr, [place] MEQ/ML / 00 Infuse Potassium over: 8 Chloride hr, Route: 0.004 IV, Dosing MEQ/ML / Weight Sodium 134.5 kg, Chloride Total 0.103 Volume: MEQ/ML / 1,000, Sodium Start Lactate date: 0.028 08/09/16 MEQ/ML 11:29:00 Injectable CDT, Solution Duration: 30 [...] en 6-30 Infuse l 16:29: over 15 [place] 00 minutes Do not exceed 4gm/day of acetaminop hen MEDICATION WASTE Product Size: 1000 mg Product Wasted: ___ mg Ibuprofen No Notes: Memori a 6-30 (Same as: l 16:29: Motrin) "Do Not Crush" Take with food. Acetaminoph No Notes: Do M emoria en 6-30 not exceed l 16:24: 4 gm/day. [place] (Same as: Tylenol) Hydromorpho No Notes: Alonzo summer ne 6-30 (Same as: l 16:24: Dilaudid) Acetaminoph No Notes: Alonzo summer en 325 MG / 6-30 (Same as: l Hydrocodone 16:24: [place] Judith nn Bitartrate 00 325/5) Do 5 MG Oral not exceed Tablet 4gm/day of acetaminop hen. Tramadol No Notes: Not Mem oria -30 to exceed l 16:24: 400mg/day. (Same As: Ultram) ondansetron No Route: IV, Memoria (ANES) 6-30 Drug form: l 16:11: INJ, ONCE, Stop date: 08/10/15 11:11:00 CDT phenylephri No Route: IV, Memoria ne (ANES) 08-09 Drug form: l 16:01: INJ, ONCE, Stop date: 08/10/15 11:01:00 CDT succinylcho No Route: IV, Memoria line (ANES) - Drug form: l 15:45: INJ, ONCE, Stop date: 08/10/15 10:45:00 CDT propofol No Route: IV, Mem oria (ANES) 6 Drug form: l 15:45: INJ, ONCE, Stop date: 08/10/15 10:45:00 CDT lidocaine No Route: IV, Me moria (ANES) - Drug form: l 15:45: INJ, ONCE, Stop date: 08/10/15 10:45:00 CDT fentaNYL No Route: IV, Mem oria (ANES) 6- Drug form: l 15:45: INJ, ONCE, Stop date: 08/10/15 10:45:00 CDT midazolam No Route: IV, Me moria (ANES) -30 Drug form: l 15:45: SOLN, ONCE, Stop date: 08/10/15 10:45:00 CDT ePHEDrine No Route: IV, Me moria (ANES) 6-30 Drug form: l 15:40: INJ, ONCE, Stop date: 08/10/15 10:40:00 CDT ceFAZolin No Route: IV, Me moria (ANES) 6-30 Drug form: l 15:34: INJ, ONCE, Stop date: 08/10/15 10:34:00 CDT LR 1000 mL No Route: IV, M emoria INJ (ANES) 6-30 Total l 14:51: Volume: [place] 00 1,000, Start date: 08/10/15 9:51:00 CDT, Stop date: 08/10/15 10:51:00 CDT Insulin, No Notes: Memoria Aspart, 6-30 Roll in l Human 13:01: palms of [place] 00 hands gently; Do not shake vigorously . (Same as: NovoLOG) "single patient use only" WASTE: F/P - Black; E - Municipal Trash Bin Stable for 28 days at room temperatur e. Expires in days from ____Date 200 ACTUAT No Notes: Memor ia Albuterol 6-30 Same as: l 0.09 13:01: Ventolin [place] MG/ACTUAT 00 HFA Metered WASTE: Dose Aerosol - Inhaler Return to Pharmacy Calcium No 1,000 mL, Memor ia Chloride 08-09 Rate: 25 l 0.0014 13:01: ml/hr, [place] MEQ/ML / 00 Infuse Potassium over: 40 Chloride hr, Route: 0.004 IV, Dosing MEQ/ML / Weight Sodium 134.091 Chloride kg, Total 0.103 Volume: MEQ/ML / 1,000, Sodium Start Lactate date: 0.028 08/10/15 MEQ/ML 8:01:00 Injectable CDT, Solution Duration: 30 day, Stop date: 09/09/15 8:00:00 CDT BD Normal No Notes: Memori a Saline -30 (Same as: l Flush 11:00: BD [place] 00 Posiflush) Ancef No Notes: Memoria 6-30 Same as: l 11:00: Ancef [place] 00 Deplin 15 Yes 15 mg = 1 Mem oria mg oral 6-23 cap, PO, l capsule 14:59: Daily, 0 Randy n 00 Refill(s) armodafinil Yes 250 mg = 1 Memoria 250 MG Oral 6-23 tab, PO, l Tablet 14:58: Daily, # [place] [Nuvigil] 00 30 tab, 0 Refill(s) Suvorexant 2016 Yes 10 mg = 1 Me moria 10 MG Oral 6-23 tab, PO, l Tablet 14:57: Bedtime, 0 Judith nn [Belsomra] 00 Refill(s) ezetimibe 2016 Yes 10 mg = 1 Mem oria 10 MG Oral 6-23 tab, PO, l Tablet 14:56: Daily, 0 [place] [Zetia] 00 Refill(s) Milnacipran 2016 Yes 50 mg = 1 M emoria [...] FlexTouch 6-23 Daily, 0 l 14:55: Refill(s) [place] 00 0.65 ML Yes 2 mg, Memoria [...] 0 Her brito Tablet 00 Refill(s) [VESICARE] cyclobenzap Yes 10 mg = 1 M emoria rine 10 mg 6-23 tab, PO, l oral tablet 14:53: TID, PRN He rmann 00 for spasms, # 30 tab, 0 Refill(s) Hydroxychlo Yes 200 mg, Mem oria roquine 6-23 PO, Daily, l 14:53: 0 [place] 00 Refill(s) pilocarpine Yes 7.5 mg = 1 Memoria 7.5 mg oral 6-23 tab, PO, l tablet 14:53: TID, # 90 Randy n 00 tab, 0 Refill(s) celecoxib Yes 200 mg = 1 Me moria 200 MG Oral 6-23 cap, PO, l Capsule 14:52: BID, 0 [place] [Celebrex] 00 Refill(s) Methotrexat Yes 0 Memori a e 6-23 Refill(s) l 14:52: [place] 00 Methotrexat Yes INTRATHECA Memoria e Sodium, [...] tongue and Memoria allow to l dissolve Outpati ent Clinics Paxil Paxil Yes Luciano [address] [facility] l [facility]ics Colace Colace Yes Luciano [address] [facility] Abilify 20 Abilify 20 [...] CeleBREX Yes Univers CAPS CAPS [facility] [place] [facility] Hydroxychlo Hydroxychlo Yes U nivers roquine roquine ity of Sulfate 200 Sulfate 200 [place] MG Oral MG Oral Physici Tablet Tablet ans Folic Acid Folic Acid Yes Uni vers 1 MG Oral 1 MG Oral ity o f Tablet Tablet [place] [facility] Pilocarpine Pilocarpine Yes U nivers HCl - 7.5 HCl - 7.5 ity o f MG Oral MG Oral [place] Tablet Tablet Physici ans HydrOXYzine HydrOXYzine Yes U nivers HCl - 25 MG HCl - 25 MG i ty of Oral Tablet Oral Tablet [place] Physici ans TraZODone TraZODone Yes Unive rs HCl TABS HCl TABS [facility] [place] [facility] Tresiba Tresiba Yes Univers FlexTouch FlexTouch ity o f SOPN SOPN [place] [facility] Bydureon Bydureon Yes Univers PEN PEN [facility] [place] [facility] Vital Signs Vital Name Observation Time Observation Value Comments Source Systolic blood 2020-05-05 147 mm[Hg] [place] pressure 15:27:41 [facility] Diastolic blood 2020-05-05 70 mm[Hg] [place] pressure 15:27:41 [facility] Heart rate 2020-05-05 89 /min [place] 15:27:41 [facility] Body temperature 2020-05-05 36.72 Teresa [place] 15:27:41 [facility] Respiratory rate 2020-05-05 16 /min [place] 15:27:41 [facility] Oxygen saturation 2020-05-05 98 /min [place] in Arterial blood 15:27:41 [facility] by Pulse oximetry Body height 2020-05-04 180.3 cm [place] 17:05:46 [facility] Body weight 2020-05-04 128.187 kg [place] 17:05:46 [facility] BMI 2020-05-04 39.41 kg/m2 [place] 17:05:46 [facility] BP Systolic 2017-09-03 130 mm[Hg] [facility] 11:02:[facility] Position: [place] [facility] Sitting BP Diastolic 2017-09-03 80 mm[Hg] [facility] 11:02:00 Position: [place] [facility] Sitting Height 2017-09-03 71 [in_us] [facility] 11:02:00 [place] [facility] s Weight 2017-09-03 298 [lb_av] [facility] 11:02:00 [place] [facility] Body Mass Index 2017-09-03 41.56 kg/m2 University o f Calculated 11:02:00 [place] [facility] s Temperature 2017-09-03 97.8 [degF] [facility] 11:02:00 [place] [facility] BP Systolic 2017-08-27 108 mm[Hg] [facility] 14:27:[facility] Position: [place] [facility] s Sitting BP Diastolic 2017-08-27 70 mm[Hg] [facility] 14:27:[facility] Position: [place] [facility] Sitting Height 2017-08-27 71 [in_us] University 14:27:00 [place] [facility] s Weight 2017-08-27 298 [lb_av] University :27:00 [place] [facility] s Body Mass Index 2017-08-27 41.56 kg/m2 University o f Calculated 14:27:00 [place] [facility] Temperature 2017-08-27 97.9 [degF] [facility] 14:27:00 [place] [facility] BP Systolic 2017-08-21 130 mm[Hg] [facility] 10:23:[facility] Position: [place] Physician [...] Physician s Temperature 2017-07-24 98.4 [degF] University 13:30:00 [place] [facility] s BP Systolic 2017-07-17 110 mm[Hg] Location: [facility]; [facility] 14:32:00 Position: [place] Physician s Sitting BP Diastolic 2017-07-17 80 mm[Hg] Location: [facility]; [facility] 14:32:00 Position: [place] Physician [...] BP Diastolic 2017-06-19 80 mm[Hg] Location: [facility]; [facility] 15:26:00 Position: [place] Physician s Sitting Height 2017-06-19 71 [in_us] [facility] of 15:26:00 [place] [facility] Weight 2017-06-19 298 [lb_av] [facility] of 15:26:00 [place] [facility] Body Mass Index 2017-06-19 41.56 kg/m2 University o f Calculated 15:26:00 [place] [facility] Temperature 2017-06-19 97.9 [degF] [facility] 15:26:00 [place] [facility] BP Systolic 2017-06-12 118 mm[Hg] Location: [facility]; [facility] 13:28:00 Position: [place] Physician s Sitting BP Diastolic 2017-06-12 80 mm[Hg] Location: [facility]; [facility] 13:28:00 Position: [place] Physician s Sitting Height 2017-06-12 71 [in_us] University 13:28:00 [place] [facility] Weight 2017-06-12 298 [lb_av] [facility] 13:28:00 [place] Physician s Body Mass Index 2017-06-12 41.56 kg/m2 [facility] o f Calculated 13:28:00 [place] Physician s BP Systolic 2017-06-09 160 mm[Hg] Location: [facility] [place]; [facility] 09:20:00 Position: [place] Physician s Sitting BP Diastolic 2017-06-09 92 mm[Hg] Location: [facility]; [facility] 09:20:00 Position: [place] Physician s Sitting Height 2017-06-09 71 [in_us] [facility] 09:20:00 [place] Physician s Weight 2017-06-09 298 [lb_av] [facility] 09:20:00 [place] Physician s Body Mass Index 2017-06-09 41.56 kg/m2 University o [facility] Calculated 09:20:00 [place] Physician s Temperature 2017-06-09 98.2 [degF] [facility] 09:20:00 [place] Physician s Respitory Rate 2016-04-01 [...] Herm archana 19:15:00 Systolic (mm Hg) 2015-08-10 [facility] rmann 19:15:00 Diastolic (mm Hg) 2015-08-10 [facility] ermann 19:15:00 Respitory Rate 2015-08-10 [facility] Herm archana 18:00:00 Heart Rate 2015-08-10 [facility] 18:00:00 Systolic (mm Hg) 2015-08-10 [facility] rmann 18:00:00 Diastolic (mm Hg) 2015-08-10 [facility] ermann 18:00:00 Heart Rate 2015-08-10 [facility] Randy n 17:45:00 Respitory Rate 2015-08-10 [facility] Herm archana 17:45:00 Systolic (mm Hg) 2015-08-10 [facility] rmann 17:45:00 Diastolic (mm Hg) 2015-08-10 [facility] ermann 17:45:00 BMI Calculated 2015-08-10 [facility] Herm archana 13:14:00 Weight 2015-08-10 [facility] Randy n 13:14:00 Temperature Oral 2015-08-03 98.5 F [facility] rmann (F) 14:50:00 Height 2015-08-03 180.34 [facility] 13:[facility] Procedures Procedure Date / Time Performing Clinician Source Performed MRI BRAIN W WO CONTRAST 2020-05-05 13:29:00 Vidal Ortiz POC GLUCOSE 2020-05-05 12:10:00 Chloe Minor Meth odjulio c TTE COMPLETE, WO CONTRAST, 2020-05-05 10:22:00 Vidal Ortiz W AGITATED SALINE ([id number]) POC GLUCOSE 2020-05-05 07:19:00 Chloe Minor odjulio c HC COMPLETE BLD COUNT 2020-05-05 05:15:00 Chloe Minor W/AUTO DIFF BASIC METABOLIC PANEL 2020-05-05 05:15:00 Chloe Minor VITAMIN B12 LEVEL 2020-05-05 05:15:00 Vidal Ortiz Az thodist VITAMIN B1 LEVEL, WHOLE 2020-05-05 05:15:00 Vidal Ortiz BLOOD THYROID STIMULATING 2020-05-05 05:15:00 Vidal Ortiz HORMONE LIPID PANEL 2020-05-05 05:15:00 Vidal Ortiz odjulio c HEMOGLOBIN A1C 2020-05-05 05:15:00 Vidal Ortiz odjulio c SEDIMENTATION RATE 2020-05-05 05:15:00 Vidal Ortiz ethodist RAPID HIV 1 & 2 2020-05-05 05:15:00 Vidal Ortiz odjulio c SYPHILIS TOTAL ANTIBODY 2020-05-05 05:15:00 Vidal Ortiz ESTIMATED GFR 2020-05-05 05:15:00 Chloe Minor Meth odist C-REACTIVE PROTEIN 2020-05-05 05:15:00 Vidal Ortiz ethodist POC GLUCOSE 2020-05-04 20:38:00 UlChloe owen Meth odist POC GLUCOSE 2020-05-04 17:14:00 KatiecaritoChloe wick [place] Meth odist URINE CULTURE 2020-05-04 15:33:00 Tom Means ethodi URINALYSIS SCREEN AND 2020-05-04 15:33:00 Tom Means MICROSCOPY, WITH REFLEX TO CULTURE COVID-19 QUALITATIVE PCR 2020-05-04 15:27:00 Tom Means ECG 12-LEAD 2020-05-04 15:21:36 Ul[address] Meth odist [address] ANGIOGRAM NECK W WO 2020-05-04 14:46:[address] ANGIOGRAM HEAD W WO 2020-05-04 14:45:[address] STROKE BRAIN WO 2020-05-04 14:36:06 Tom Means CONTRAST HC COMPLETE BLD COUNT 2020-05-04 14:19:00 Tom Means W/AUTO DIFF PARTIAL THROMBOPLASTIN 2020-05-04 14:19:00 Tom Means TIME (PTT) PROTHROMBIN TIME WITH INR 2020-05-04 14:19:00 Tom Means COMPREHENSIVE METABOLIC 2020-05-04 14:19:00 Tom Means H [facility] [facility] PANEL ESTIMATED GFR 2020-05-04 14:19:00 Tom Means M ethodist [QL] CULTURE, URINE, 2017-08-27 00:00:00 [facility] ROUTINE Physicians [[facility]] CULTURE, URINE, 2017-08-21 00:00:00 [facility] ROUTINE Physicians [[facility]] CULTURE, URINE, 2017-06-09 00:00:00 [facility] ROUTINE Physicians History of Ankle Surgery [facility] Physicians History of Hysteroscopy [facility] With Endometrial Ablation Physic ians CHILO - Endometrial laser [facility] ablation [place] stem cell [facility] ORIF - Open reduction and Memori al [place] internal fixation of fracture [place] [facility] Plan of Care Planned Activity Planned Date Details Comments Source Future Scheduled 2020-09-10 INFLUENZA VACCINE [place] [facility] Test 00:00:00 [code = INFLUENZA VACCINE] Future Scheduled 2009-09-16 BREAST CANCER [facility] thodist Test 00:00:00 SCREENING [code = BREAST CANCER SCREENING] Future Scheduled 2009-09-16 COLONOSCOPY SCREENING [place] [facility] Test 00:00:00 [code = COLONOSCOPY SCREENING] Future Scheduled 2009-09-16 SHINGLES VACCINES (#1) H [facility] Test 00:00:00 [code = SHINGLES VACCINES (#1)] Future Scheduled 1980-09-16 Screening for [facility] thodist Test 00:00:00 malignant neoplasm of cervix (procedure) [code = 935686178] Future Scheduled 1977-09-16 Hepatitis C screening [place] [facility] Test 00:00:00 (procedure) [code = 047239076] Future Scheduled 1975 COVID-19 VACCINE (1) Maryana augusto [facility] Test 00:00:00 [code = COVID-19 VACCINE (1)] Future Scheduled 1969-09-16 DIABETES: RETINAL EYE [place] [facility] Test 00:00:00 EXAM [code = DIABETES: RETINAL EYE EXAM] Future Scheduled 1969-09-16 DIABETIC FOOT EXAM [place] [facility] Test 00:00:00 [code = DIABETIC FOOT EXAM] Future Scheduled 1969-09-16 URINE MICROALBUMIN [place] [facility] Test 00:00:00 [code = URINE MICROALBUMIN] Encounters Start End Encounter Admission Attending Care Care Encounter Source Date/Time Date/Time Type Type Clinicians Facility Department ID 2020-05-17 2020-05-17 Outpatient [facility] [id number] [facility] 2020-05-04 2020-05-05 Outpatient [facility] [id number] [place] 00:00:00 00:00:[address] 2020-04-14 2020-04-14 Outpatient [facility] [id number] [facility] 2020-04-10 2020-04-10 Outpatient [facility] [id number] [facility] 2020-03-31 2020-03-31 Outpatient [facility] [id number] [facility] 2020-03-23 2020-03-23 Outpatient [facility] [id number] [facility] 2020-03-23 2020-03-23 Outpatient [facility] [id number] [facility] 2020-03-14 2020-03-14 Outpatient [facility] [id number] [facility] 2020-03-07 2020-03-07 Outpatient [facility] [id number] [facility] 2020-02-28 2020-02-28 Outpatient [facility] [id number] [facility] 2020-02-24 2020-02-24 Outpatient [facility]LML[facility] [id number] [facility] 2020-02-23 2020-02-23 Outpatient [facility] [id number] [facility] 2020-02-23 2020-02-23 Outpatient [facility] [id number] [facility] 2019-11-24 2019-11-24 Outpatient Etelvina, MHOIP OIP [id number] 09:28:00 23:59:00 Rena 03 Starr 2019-11-11 2019-11-11 Out[facility] [id number] [facility] 2019-11-02 2019-11-02 Out[facility] [id number] [facility] 2019-11-02 2019-11-02 Out[facility] [id number] [facility] 2019-10-27 2019-10-27 [facility] [id number] 14:10:00 14:10:00 t [employer] s - Drive [facility] l Medicine Outpati ent Clinics 2019-10-27 2019-10-27 [facility] [id number] 10:59:00 10:59:00 t [employer] s - Drive [facility] Family Medicine l Medicine Outpati ent Clinics 2019-10-12 2019-10-12 [facility] [id number] 08:20:00 08:20:00 [place] [employer] s - Drive [facility] Medicine l Medicine Outpati ent Clinics 2019-09-22 2019-09-22 [facility] [id number] 08:30:00 08:30:00 t [employer] - [place] [facility] Medicine l Medicine Outpati ent Clinics 2019-08-10 2019-08-10 [facility] [id number] 13:30:00 13:30:00 [place] [address] [place] s - Drive [facility] Medicine l Medicine Outpati ent Clinics 2019-04-02 2019-04-02 [facility] [id number] [address] 15:07:00 15:07:00 [place] [address] Luke s - Drive [facility] Medicine l Medicine Outpati ent Clinics 2019-03-16 2019-03-16 [facility] [id number] 17:04:00 17:04:00 [place] [address] Luke s - Drive [facility] Medicine l Medicine Outpati ent Clinics 2018-12-03 2018-12-03 [facility] [id number] 16:41:00 16:41:00 [place] Luke s - Drive [facility] l Medicine Outpati ent Clinics 2018-11-18 2018-11-18 [facility] [id number] 08:00:00 08:00:00 [place] Luke s - Drive [facility] Medicine l Medicine Outpati ent Clinics 2018-07-22 2018-07-22 [facility] [id number] 08:30:00 08:30:00 [place] Luke s - Drive [facility] Medicine l Medicine Outpati ent Clinics 2018-06-10 2018-06-10 [facility] [id number] 09:53:00 09:53:00 [place] [employer] s - Drive [facility] Medicine l Medicine Outpati ent Clinics 2018-03-23 2018-03-23 [facility] [id number] 14:00:00 14:00:00 [place] Luke s - Drive [facility] Medicine l Medicine Outpati ent Clinics 2018-03-19 2018-03-19 [facility] [id number] 10:45:00 10:45:00 [place] Luke s - Drive [facility] Medicine l Medicine Outpati ent Clinics 2017-11-10 2017-11-10 [facility] [id number] 10:15:00 10:15:00 [place] Luke s - Drive [facility] Medicine l Medicine Outpati ent Clinics 2017-11-06 2017-11-06 [facility] [id number] 08:00:00 08:00:00 [place] [employer] s - Drive [facility] Clin[facility] 2017-09-23 2017-09-23 [facility] [id number] 16:07:00 16:07:00 [place] [employer] s - Drive [facility] ent [facility] 2017-09-03 2017-09-03 [facility] RHIANNON HOOPER [employer]necol[employer] 4 [id number] Univers 11:00:00 11:00:00 t; KARISSA CLEANING gy Center [facility] [place] [employer]AR[employer]SA CLEANING Physic i ans 2017-08-27 2017-08-27 [facility] RHIANNON HOOPER [employer]necol[employer] 4 [id number] Univers 14:10:00 14:10:00 t; KARISSA CLEANING gy [facility] [place] KAR[employer]SA CLEAN[employer] Physic i ans 2017-08-21 2017-08-21 [facility] RHIANNON HOOPER UroGynecolo 4 [id number] Univers 10:10:00 10:10:00 t; KARISSA CLEANING gy [place] KAR[employer]SA [employer]AN[employer] Physic i ans 2017-08-14 2017-08-14 [facility] RHIANNON HOOPER [employer]ro[employer]necol[employer] 4 [id number] Univers 11:00:00 11:00:00 t; KARISSA CLEANING gy [place] [employer]AR[employer]SA CLE[employer] Physic i ans 2017-07-31 2017-07-31 Appointmen RHIANNON HOOPER [employer]necol[employer] 4 [id number] Univers 14:10:00 14:10:00 t; KARISSA CLEANING gy Center it y of [place] KARISSA CLEAN[employer] Physic i ans 2017-07-24 2017-07-24 Appointmen RHIANNON HOOPER UroGynecol[employer] 4 [id number] [facility] [place] 13:20:00 13:20:00 t; KARISSA CLEANING gy Center it y of [place] [employer]ARISSA [employer] Physic i ans 2017-07-17 2017-07-17 Appointmen RHIANNON HOOPER [employer]roGynecol[employer] 4 [id number] Univers 14:10:00 14:10:00 t; KARISSA CLEANING gy Center it y [facility] Kassidy s [employer]ISSA [employer] Physic i ans 2017-07-03 2017-07-03 Appointmen URODIANEEdvin RHIANNON Women's [id number] Univers 09:00:00 09:00:00 t; DERESKA Center ity of [address] DERESKA Physici ans 2017-06-26 2017-06-26 [facility] BRADFORDHUNGJARRETTRHIANNON UroGynecolo 4 [id number] Univers 09:00:00 09:00:00 t; KARISSA CLEANING gy Center it y of [facility] Kassidy s KARISSA CLEANING Physic i ans 2017-06-25 2017-06-25 [facility] [id number] 09:30:00 09:30:00 t [place] [employer] [facility] Clinics 2017-06-19 2017-06-19 AppointRHIANNON Su [employer]roGynecol[employer] 4 [id number] Univers 15:20:00 15:20:00 t; KARISSA CLEANING gy Center it y of [facility] Kassidy s KARISSA CLEAN[employer] Physic i ans 2017-06-12 2017-06-12 AppointRHIANNON Su UroGynecolo 4 [id number] Univers 13:20:00 13:20:00 t; KARISSA CLEANING gy Center it y of [facility] s KARISSA CLEANING Physic i ans 2017-06-09 2017-06-09 AppointRHIANNON Su UTP [id number] Univers 09:20:00 09:20:00 t; KARISSA CLEANING ity of PH[place]IP[place] KARISSA CLEANING Physic i ans 2016-12-19 2016-12-19 AppointRHIANNON Su UTP [id number] Univers 10:10:00 10:10:00 t; KARISSA CLEANING ity of Myrtle HOOPER NP Physic i ans 2016-11-28 2016-11-28 AppointRHIANNON Su UTP [id number] Univers 10:10:00 10:10:00 t; KARISSA CLEANING ity of RUFUS [place] KARISSA CLEANING Physic i ans 2016-09-12 2016-09-12 [facility] RUFUS, UTP UTP [id number] Univers 13:20:00 13:20:00 t; KARISSA CLEANING ity of [place], [place] BLACK, [employer] Physic i ans 2016-04-01 2016-04-01 Outpatient Julio C [place] MHSL [id number] 11:43:00 17:41:00 Camronsd2015-11-30 2015-11-30 [facility] BRADFORDROCHELLE, UTP UTP [id number] Univers 09:00:00 09:00:00 t; KARISSA CLEANING ity Prim, [place] BLACK, [employer] Physic i ans 2015-10-20 2015-10-20 [facility] LAVERN, UTP UTP [id number] Univers 10:10:00 10:10:00 t; Preeti CARTER [place] NINA, M.D. Physi ci ans 2015-09-21 2015-09-21 [facility] LAVERN, RHIANNON UTP [id number] Univers 13:00:00 13:00:00 t; Preeti CARTER [place] NINA, M.D. Physi ci ans 2015-08-10 2015-08-10 Outpatient [place] [id number] 07:24:00 14:42:00 Andressa 00 Yolanda 2015-08-10 2015-08-10 [facility] LAVERN, RHIANNON UTP [id number] Univers 09:30:00 09:30:00 t; Preeti CARTER [place] NINA, M.D. Physi ci ans 2015-08-02 2015-08-02 [facility] LAVERN, RHIANNON UTP [id number] Univers 08:30:00 08:30:00 t; Preeti CARTER [place] NINA, M.D. Physi ci ans 2015-07-05 2015-07-05 [facility] LAVERN, RHIANNON UTP [id number] Univers 08:30:00 08:30:00 t; Preeti CARTER [place] NINA, M.D. Physi ci ans 2015-04-28 2015-04-28 Outpatient Lavern [id number] 10:30:00 23:59:00 Andressa [id number] [place] [id number] Results Test Description Test Time Test Comments Results Result Comments Source ECG 12 lead 2020-05-06 19:09:04 Test Item Value Reference Range Interpretation Comme nts Ventricular rate (test code = 253) 82 Atrial rate (test code = 255) 82 ND interval (test code = 266) 160 QRSD interval (test code = 260) 86 QT interval (test code = 264) 404 QTC interval (test code = 265) 472 P axis 1 (test code = 267) 54 QRS axis 1 (test code = 268) 58 T wave axis (test code = 270) 62 EKG impression (test code = 273) Normal sinus rhythm-Prolonged QT-A bnormal ECG-In automated comparison with ECG of 20-DEC-2015 08:42,-Nonspecific T wave abnormality no longer evident in Lateral leads- Sridhar CastilloTransthoracic Echocardiogram Complete, (w Contrast, Strain and 3D if needed)2020-05-05 16:56:13 Test Item Value Reference Range Interpretation Comments AoV Area, Vmax (test 3.00 cm2 code = 7074262036) AoV Area, VTI (test 2.90 cm2 code = 0406244613) AoV Mean PG (test code 4.00 mmHg = 9895744519) AoV Peak PG (test code 6.86 mmHg = 3165069410) AoV Vmax (test code = 1.31 m/s 7541864524) AoV VTI (test code = 0.26 m 3126004383) IVS,d (test code = 1.03 cm 6957569958) IVS/LVPW,2D (test code 1.20 = 2682801022) Left Atrium Dimension 4.40 cm Anterior (test code = 8595511922) LV,d (test code = 5.15 cm 5193285604) LV EF,2D (test code = 55.90 % 6050196799) LV,s (test code = 3.92 cm 9468213746) LVOT area (test code = 3.14 cm2 7615587018) LVOT Diam,S (test code 2.00 cm = 0989226438) LVOT Vmax (test code = 1.25 m/s 2277343048) LVOT VTI (test code = 0.24 m 8192305944) LVPWD,d (test code = 0.86 cm 6344806871) PV Pk Grad (test code = 3.22 mmHg 4343045131) PV VMAX (test code = 0.90 m/s 1581110308) RVOT Vmax (test code = 0.78 m/s 9446014474) TR Vpeak (test code = 2.34 mm/s 4045515448) MV E A ratio (test code 0.95 = 5659700423) TR pk grad (test code = 12.30 mmHg 0886093770) MR Vmax (test code = 4.27 m/s 3943388410) MR peak grad (test code 72.14 mmHg = 9874236631) E wave decelartion time 239.00 msec (test code = 6810235199) MV Peak A Sam (test 0.87 m/s code = 5889841898) MV valve area p 1/2 3.17 cm2 method (test code = 8850571682) MV Peak E Sam (test 0.83 m/s code = 5330785004) MV stenosis pressure 69.31 ms 1/2 time (test code = 7450606372) LVOT stroke volume 0.75 cm3 (test code = 9822961657) AV LVOT peak gradient 6.25 mmHg (test code = 2631390297) Ao Root,d,2D (test code 3.00 cm = 2239072295) LV SYS VOL (test code = 66.72 ml 9908057059) LV LICONA VOL (test code 126.64 ml = 7830529620) LV SV Teich 2D (test 59.92 ml code = 5725518308) LV Vol s Teich PSAX 66.72 ml (test code = 5589920081) RVOT pk grad (test code 2.43 mmHg = 8343307163) AoV Vmn (test code = 0.92 8611024359) LV FS Teich 2D (test 23.88 code = 8769377487) MV AE ratio (test code 1.06 = 8387493678) LV FS Cube 2D (test 23.88 code = 8266596660) LVOT Vmn (test code = 0.82 6573306691) Aov area Vmn (test code 2.80 cm2 = 7218800662) LVOT mean grad (test 3.00 mmHg code = 1451734564) MAX Pred HR (test code 159.37 = 0631677382) 85 of MPHR (test code = 135.46 1925138772) Ao d LA s ratio (test 0.68 code = 5730916604) Calc MPHR (test code = 159.37 bpm 6554690862) LV SV Cube 2D (test 76.35 ml code = 1388638335) LV vol d cube 2D (test 136.59 ml code = 0127463150) LV vol s cube 2D (test 60.24 ml code = 5886118735) MV Decel slope (test 3.45 m/s2 code = 6362545998) Pred Exer Dur R1 (test 7.84 code = 1766022427) Pred METS R1 (test code 6.82 = 4701379567) Velocity Ratio (V1/V2) 0.95 m/s (test code = 4689) EF (test code = 47.32 % 1842164065) E/A ratio (test code = 0.95 9436141645) LVOT VTI (CM) (test 24.00 cm code = 9825246898) MARIOLA (test code = MARIOLA) Normal left ventricular size and function with an EF~ 55% to 60%.Normal right ventricular size and function.Structurally normal cardiac valves.Mild mitral regurgitation. Left atrial enlargement. Normal pericardium with no effusion.Grade 1 diastolic dysfunction. [facility] [place] [facility] Brain W Wo [id number] 13:34:06Hm Interface, Radiology Results 05/05/2020 1:37 PM CDT EXAM: MRI BRAIN W WO CONTRASTCLINICAL HISTORY: Stroke follow up, Vision loss monocular, Left eye vision lossTECHNIQUE: Multiplanar and multisequence MRI imaging of the brainwas obtained with and without contrast.COMPARISON: CT/CTA brain, 05/04/2020FINDINGS:No diffusion restriction to suggest acute infarct.Parenchymal volume is within normal limits.Minimal scattered white matter chronic small vessel ischemic changes.There is no abnormal parenchymal or leptomeningeal enhancement. No acute intracranial hemorrhage, mass, hydrocephalus, or extra- axial fluid collection identified.Although this examination is not optimized for the sella, pituitary is grossly normal in appearance. Midline structures are maintained. The major flow voids in the skull base are identified. Orbitsare unremarkable. Subcentimeter mucosal retention cyst or polyp is seen within the left sphenoid sinus. Remaining sinuses are clear. Mastoid air cells are normally pneumatized. IMPRESSION:No acute intracranial abnormality identified. There is no enhancing lesion in the brain.[id number] MethodistUrine culture 2020-05-04 15:46:09 Test Item Value Reference Range Interpretation Comments Urine culture (test SEE COMMENT Bacteriu summer screen code = 9016221) negative. [place] [facility] Head W Wo [id number] 14:49:34Hm Interface, Radiology Results 05/04/2020 2:52 PM CDT EXAMINATION: CT ANGIOGRAM HEAD W WO CONTRASTCLINICAL HISTORY: STROKECOMPARISON: None.FINDINGS:Axial images were obtained throughout the the brain after intravenous contrastinfusion with MPR and 3-D MIP image reconstructions. CT scans are performed using radiation dose reduction techniques. Technical factors are evaluated and adjusted to ensure appropriate moderation of exposure. Automated dose management technology is applied to adjust radiation exposure while achieving a highly diagnostic quality image.There is vertebrobasilar tortuosity without focal stenosis.The internal carotid arteries demonstrate minimal calcifications in the siphons without focal stenosis.There is no large vessel occlusion or aneurysm or AVM.There is patency of the dural venous sinuses and the cortical/brain.IMPRESSION:No evidence of large vessel occlusion or aneurysm.[id number] Methodist[facility] Neck W Wo [id number] 14:48:26Hm Interface, Radiology Results 05/04/2020 2:51 PM CDT EXAMINATION: CT ANGIOGRAM NECK W WO CONTRASTCLINICAL HISTORY: STROKECOMPARISON: None.FINDINGS:Axial images were obtained after intravenous contrast injection throughout theneck and superior mediastinum with MPR and 3-D MIP image reformations CT scans are performed using radiation dose reduction techniques. Technical factors are evaluated and adjusted to ensure appropriate moderation of exposure. Automated dose management technology is applied to adjust radiation exposure while achieving a highly diagnostic quality image.The origins of the common carotid and vertebral arteries are patent.There are atheromatous proximal internal carotid artery calcifications without significant stenosis by NASCET criteriaThe cervical vertebral arteries are somewhat tortuous but patent and show no evidence of stenosis.There is no definite intimal dissection.IMPRESSION:Small atheromatous calcifications in the proximal internal carotid arteries without significant stenosis by NASCET criteriaVertebral artery patency.[id number] Stroke Brain Wo [id number] 14:42:38Hm Interface, Radiology Results 05/04/2020 2:45 PM CDT EXAMINATION: CT STROKE BRAIN WO CONTRASTCLINICAL HISTORY: STROKE, Suddenvision loss in the left eyeCOMPARISON: None.TECHNIQUE: Noncontrast head CT performed using radiation dose reduction techniques. Technical factors are evaluated and adjusted to ensure appropriate moderation of exposure. Automated dose management technology is applied to adjust radiation exposure while achieving a diagnostic quality image. FINDINGS:No acute intra or extra-axial hemorrhage identified. The cavanaugh- white matter differentiation is preserved. The basal ganglia, thalami, midbrain, cee andcervicomedullary junction are unremarkable. No mass, mass effect, or midline shift is seen. Ventricles and sulci are normal in appearance for patient's age. Basal cisterns are patent. Calvarium is intact.The orbital contents are symmetric and normal in appearance. The visualized paranasal sinuses areunremarkable. The mastoid air cells and middle ear cavities are clear. Scalp soft tissues are unremarkable.IMPRESSION:No acute intracranial abnormality identified.These findings were discussed with ANA MARIA Means at 1441 hours on 05/04/2020 who verbalized understanding.[facility]-[id number] [facility] [[facility]] CULTURE, URINE, [id number] 14:25:01 Test Item Value Reference Range Interpretation Comments ORGANISM (test Escherichia coliEnterococcus code = 699-9) Species FINAL REPORT 50,000 - 100,000 CFU/mL (test code = Escherichia coli 10,000 - FINAL REPORT) 50,000 CFU/mL EnterococcusSpecies 10,000 - 50,000 CFU/mL Skin Nina [facility][H] [id number] 14:25:01 Test Item Value Reference Range Interpretation Comments ORGANISM (test code = Enterococcus 699-9) Species Ampicillin (test code - S = Ampicillin) Levofloxacin (test - S code = Levofloxacin) Nitrofurantoin (test - S code = Nitrofurantoin) Tetracycline (test - S code = Tetracycline) Vancomycin (test code SEE NOTES S S= Latoya ceptible, = Vancomycin) R= Resistant, I= Intermediate, N/A= Not Applicable [facility][H] [id number] 14:25:01 Test Item Value Reference Range Interpretation [...] Tetracycline (test code = - S Tetracycline) [facility][O] Urine Dipstick (In Office)2017-08-27 15:29:00 Test Item Value Reference Range Interpretation Comments LEUKOCYTES (test code = LEUKOCYTES) 2+ A NITRITE; Normal (test code = 75779-4) neg N UROBILINOGEN; Normal (test code = 0.2 N 21826-1) PROTEIN; Normal (test code = 20725-7) neg N pH (test code = pH) 6.5 N URINE BLOOD; Abnormal (test code = trace A 14048-7) SPECIFIC GRAVITY; Normal (test code = 1.020 N 2965-2) KETONES; Normal (test code = 66492-1) neg N BILIRUBIN; Normal (test code = 31090-4) neg N GLUCOSE; Normal (test code = 1547-9) neg N [facility]] CULTURE, URINE, [id number] 15:37:01 Test Item Value Reference Range Interpretation Comments ORGANISM (test code = Escherichia coli 699-9) FINAL REPORT (test 50,000 - 100,000 CFU/mL code = FINAL REPORT) Escherichia coli . 50,000 - 100,000 CFU/mL Skin Nina [facility][H] [id number] 15:37:01 Test Item Value Reference Range Interpretation [...] Resi stant, I= Intermediate, N/A= Not Applicable [facility][O] Urine Dipstick (In Office)2017-08-21 12:24:00 Test Item Value Reference Range Interpretation Comments LEUKOCYTES (test code = LEUKOCYTES) 2+ A NITRITE; Normal (test code = 61567-4) NEG N UROBILINOGEN; Normal (test code = 0.2 N 93512-0) PROTEIN; Abnormal (test code = 77515-4) 30 MG A pH (test code = pH) 5.5 N URINE BLOOD; Abnormal (test code = 2+ A 96586-0) SPECIFIC GRAVITY; Normal (test code = 1.030 N 2965-2) KETONES; Normal (test code = 52071-7) NEG N BILIRUBIN; Normal (test code = 09929-4) NEG N GLUCOSE; Normal (test code = 1547-9) NEG N [facility][] Urine Dipstick (In Office)2017-06-09 10:06:00 Test Item Value Reference Range Interpretation Comments LEUKOCYTES (test code = LEUKOCYTES) 2+ A NITRITE; Normal (test code = 41027-1) NEG N UROBILINOGEN; Normal (test code = 0.2 N 60216-0) PROTEIN; Normal (test code = 85027-0) NEG N pH (test code = pH) 7.0 N URINE BLOOD; Abnormal (test code = 2+ A 45322-7) SPECIFIC GRAVITY; Normal (test code = 1.010 N 2965-2) KETONES; Normal (test code = 39802-0) NEG N BILIRUBIN; Normal (test code = NEG N 05001-2) GLUCOSE; Abnormal (test code = 1547-9) 250 MG A [facility]] BV/ VAGINITIS PANEL DNA PROBE AFFIRM 2017-06-09 09:20:01 Test Item Value Reference Range Interpretation Comments Trichomonas vaginalis DNA (test code Negative Negative = 02825-1) Gardnerella vaginalis DNA; Abnormal Positive Negative A (test code = 6410-5) Grace sp. DNA; Abnormal (test code Positive Negative A = 68676-5) [facility]] CULTURE, URINE, [id number] 09:20:01 Test Item Value Reference Range Interpretation Comments ORGANISM (test code = Escherichia coli 699-9) FINAL REPORT (test >100,000 CFU/mL code = FINAL REPORT) Escherichia coli 10,000 - 50,000 CFU/mL Skin Nina [facility][] [id number] 09:20:01 Test Item Value Reference Range Interpretation Comments ORGANISM (test code Escherichia coli = 699-9) Ciprofloxacin (test .75 S code = Ciprofloxacin) Levofloxacin (test 1.5 S code = Levofloxacin) Trimethoprim/Sulfame 32 R thoxazole (test code = Trimethoprim/Sulfame thoxazole) Ceftriaxone (test .094 S S= Suscept ible, code = Ceftriaxone) R= Resis tant, I= Intermediate, N/A= Not Applicable [facility] [id number] 20:20:000[facility] BODY [id number] 20:20:000[facility] [id number] 20:20:00 Yellow (04/01/16 2:20 PM)[facility] [id number] 20:20:00Other (04/01/16 2:20 PM)[facility] [id number] 20:20:00Slight Cloudy (04/01/16 2:20 PM)[facility] TDLPGK5199-94-15 20:20:736907Narjdkso HermannBODY HSKDVX0936-97-85 20:20:78273Knrzhjtd HermannBODY WUJNGF4905-13-31 20:20:0044[facility]ann[facility] KRIDOD0293-61-82 20:20:0056[facility] NBYBYIFXXR9157-56-32 19:10:006.1[facility] ErdwzwwKOAIOOHGMA3507-13-65 19:10:007.9 [facility] VbyciwjMDLZUGKRYL8368-81-52 19:10:07683Hwceydaa HermannHEMATOLOGY 2016-04-01 19:10:00 Test Item Value Reference Range Interpretation Comments MCH (test code = MCH) 28.5 pg 27.0-31.0 [facility] WwdunhnJXZYXMDXAH4931-56-41 19:10:0014.8[facility]annHEMATOLOGY 2016-04-01 19:10:0033.2[facility] VpnacycGRQWTNSNKC8480-44-49 19:10:0030.8[facility] RdlraesWZKJMQQRSL4671-85-27 19:10:003.59[facility] WcdogwqUXXQZMBSKM9949-20-48 19:10:0010.2[facility] LqjhmaxTDCKDJRXPW3493-62-17 19:10:0085.9[facility] VJQKNXIHJR3153-24-96 19:10:000.1[facility] CkjxbnyJERDMDPPVQ4379-33-68 19:10:000.4 [facility] IofvkbiFWEKRPKEBL4243-38-08 19:10:004.0[facility]annHEMATOLOGY 2016-04-01 19:10:001.5[facility] HsscuukPFTGNWRNZC4833-50-13 19:10:000.0[facility] JmpbmgaETGLOEVHQN2558-31-45 19:10:0025.0[facility] NevldvsCDOZSWYDLG4614-66-56 19:10:006.9[facility] KfjmfcyDPCENNNIKG8265-68-96 19:10:0065.5[facility] UIWCVOCGQN8414-52-32 19:10:000.6[facility] EejyjkiDONLDCYKSQ2776-17-97 19:10:002.0 [facility] PzsohxdDYDGTIPOWQ2334-32-44 19:07:0084[facility] HermannCHEM PANEL 2016-04-01 18:33:001.3[facility] HermannCHEM MQTRO3487-76-58 18:33:0091[facility] HermannCHEM OLYLP2016-01-16 18:33:0019[facility] HermannCHEM ATEFL4780-38-60 18:33:000.6[facility] HermannCHEM AYVDS8188-35-96 18:33:004.7[facility] HermannCHEM HHXPD7794-22-99 18:33:0012.0[facility] HermannCHEM OFMHQ9258-89-78 18:33:000.2 [facility] HermannCHEM PKEQJ4883-96-70 18:33:96195Wyestgte HermannCHEM PANEL 2016-04-01 18:33:0030[facility] HermannCHEM UBQXZ9262-29-78 18:33:0099[facility] HermannCHEM GWHSX3546-39-04 18:33:0014Mem[facility] HermannCHEM UYKBH9929-42-09 18:33:94503Upmlboph HermannCHEM QAKVF1046-37-46 18:33:000.74[facility] HermannCHEM BOWWH8080-13-44 18:33:005.0[facility] HermannCHEM CQESI6301-23-96 18:33:51469 [facility]annCHEM ONDIF4551-08-03 18:33:007.7[facility] HermannCHEM PANEL 2016-04-01 18:33:008.7[facility] HermannCHEM HJRUL3244-08-68 18:33:0021[facility] HermannCHEM URZVD5817-28-59 18:33:003.0[facility] HermannCHEM GLAJW5534-72-58 18:33:0027[facility] SzwdnczRZQZGNOCLZ4283-28-95 18:33:0044.4[facility] HermannCHEM KEKTP0398-61-88 14:38:0079[facility] HermannCHEM PXTTR1489-82-22 14:38:57312 [facility]annCHEM IWIWH8454-68-58 14:38:26511Qbxaglzy HermannCHEM PANEL 2015-08-03 14:38:004.6[facility] HermannCHEM BVJFQ1571-62-08 14:38:009.4[facility] HermannCHEM UYAXH4833-57-87 14:38:0031[facility] HermannCHEM YKQGO0146-00-24 14:38:61518Bcwqwwad HermannCHEM UBTMR0065-39-23 14:38:000.84[facility] HermannCHEM SGQXI9361-77-89 14:38:0017[facility] HermannCHEM BCKAH3319-23-33 14:38:0013.6 Memorial RcvkzfoUMLGWXFUEQ8973-84-77 14:38:00 Test Item Value Reference Range Interpretation Comments MCH (test code = MCH) 28.8 pg 27.0-31.0 [facility] QancsrePIYUDBPQXB8863-34-61 14:38:0012.1[facility] HermannHEMATOLOGY 2015-08-03 14:38:004.20[facility] UieacqaINTDUHVFSH0491-43-61 14:38:0089.2[facility] MtgzswaCDUJDBYJCJ2275-21-32 14:38:0037.5[facility] DycscgcELMULBNATG8427-52-36 14:38:007.4[facility] EtpawyqPCWREJYTPX6828-87-47 14:38:0032.3[facility] LFGBSTSRHX0049-04-74 14:38:0014.3[facility] OnxlwwbQKWAJTVFVL8301-19-22 14:38:00 9.3[facility] MvimaeaHGQKYOUPXC4014-68-31 14:38:58319Yendckbe HermannHEMATOLOGY 2015-08-03 14:38:000.0[facility] OnffgysYSJAXMDFRM9331-89-74 14:38:0061.4[facility] FonrormDZFQGHEOHO1078-81-07 14:38:0030.9[facility] JzvhdecFMZEUXXPJX9590-08-66 14:38:002.3[facility] HrctzaiOMCTTUPDVC0570-06-37 14:38:000.4[facility] WYUKYJJIEQ1727-98-62 14:38:004.5[facility] RzyiuefFIYZBZMRMB5385-82-77 14:38:000.5 [facility] TvpopncUTDSBCLAPL6594-52-67 14:38:005.8[facility] HermannHEMATOLOGY 2015-08-03 14:38:001.4[facility] OqvlfiaIYVQBALZRC2681-15-13 14:38:000.1[facility] JeszqatZNCMZTMPHT6389-87-78 14:38:00Negative *NA*(08/03/15 9:38 AM)[facility] KvucmwnUJGAOWFFBJ1807-82-33 14:38:00Negative *NA*(08/03/15 9:38 AM)[facility]
--- NOTE | 2020-05-21 21:22 | RAD REPORT ---
EXAM DESCRIPTION: CT - CTHCSPWOC - 05/21/2020 9:01 pm CLINICAL HISTORY: Trauma, head and neck injury. PAIN COMPARISON: Neck Angio dated 08/04/2019 TECHNIQUE: Axial 5 mm thick images of the head were obtained. Axial 2 mm thick images of the cervical spine were obtained with sagittal and coronal reconstruction images generated and reviewed. All CT scans are performed using dose optimization technique as appropriate and may include automated exposure control or mA/KV adjustment according to patient size. FINDINGS: CT HEAD WITHOUT CONTRAST: No acute hemorrhage, hydrocephalus or extra-axial collection is identified.No areas of brain edema or midline shift. The paranasal sinuses and mastoids are clear.The calvarium is intact. CT CERVICAL SPINE WITHOUT CONTRAST: No fracture or subluxation.Mild lower cervical degenerative changes.No prevertebral soft tissues swel ling is identified. IMPRESSION: No acute intracranial or cervical spine findings.
--- NOTE | 2020-05-21 22:01 | ER ---
Nurse's Notes [facility] Name: Bob Armstrong Age: 59 yrs Sex: Female : 1960 Arrival Date: 05/21/2020 Time: 18:37 Bed 24 Private MD: Diagnosis: Nondisplaced fracture of distal phalanx of left lesser toe(s) Presentation: 05/21 19:14 Chief complaint: Patient states: she fell day before yesterday and thinks she broke one bb of her toes and her left shoulder is hurting and radiating up into her neck denies LOC. Coronavirus screen: At this time, the client does not indicate any symptoms associated with coronavirus-19. Ebola Screen: No symptoms or risks identified at this time. Initial Sepsis Screen: Does the patient meet any 2 criteria? No. Patient's initial sepsis screen is negative. Does the patient have a suspected source of infection? No. Patient's initial sepsis screen is negative. Risk Assessment: Do you want to hurt yourself or someone else? Patient reports no desire to harm self or others. Onset of symptoms was May 19, 2020. 19:14 Method Of Arrival: Ambulatory bb 19:14 Acuity: JERRY 4 bb Triage Assessment: 19:18 General: Appears uncomfortable, Behavior is calm, cooperative. Pain: Complains of pain bb in left shoulder. Neuro: Level of Consciousness is awake, alert, obeys commands, Oriented to person, place, time, situation. Cardiovascular: No deficits noted. Respiratory: Respiratory effort is even, unlabored, Respiratory pattern is regular. Derm: Skin is pink, warm \T\ dry. Musculoskeletal: Circulation, motion, and sensation intact. Reports pain in left shoulder. Historical: - Allergies: 19:18 Lyrica; bb 19:18 zpack; bb 19:18 steroids; bb - PMHx: 19:18 Depression; Diabetes - NIDDM; Hyperlipidemia; Hypertension; insomnia; osteoarthritis; bb Rheumatoid Arthritis; - Immunization history:: Adult Immunizations up to date. - Social history:: Smoking status: Patient denies any tobacco usage or history of. Patient/guardian denies using alcohol, street drugs, The patient lives with family. - Family history:: not pertinent. Screenin:17 Abuse screen: Denies threats or abuse. Nutritional screening: No deficits noted. bb Tuberculosis screening: No symptoms or risk factors identified. Fall Risk None identified. Assessment: 20:17 Reassessment: No changes from previously documented assessment. see triage assessment. bb 22:14 Reassessment: Patient is alert, oriented x 3, equal unlabored respirations, skin bb warm/dry/pink. ortho shoe in place, pt verbalized understanding of and agrees to plan of care discharge instructions given pt ambulated with steady gait to exit. Vital Signs: 19:14 BP 138 / 83; Pulse 87; Resp 18 S; Temp 99(O); Pulse Ox 98% on R/A; Weight 129.27 kg bb (R); Height 5 ft. 11 in. (180.34 cm) (R); Pain 4/10; 22:15 BP 142 / 88; Pulse 82; Resp 16 S; Pulse Ox 94% on R/A; bb 19:14 Body Mass Index 39.75 (129.27 kg, 180.34 cm) bb ED Course: 18:37 Patient arrived in ED. mr 19:18 Triage completed. bb 19:18 Arm band placed on Patient placed in waiting room, Patient notified of wait time. bb 20:16 Lulú Guzman MD is Attending Physician. ma2 20:17 Macy Leos RN is Primary Nurse. bb 20:17 Patient has correct armband on for positive identification. Bed in low position. Call bb light in reach. Side rails up X 1. 21:01 CT Head C Spine In Process Unspecified. EDMS 21:31 Foot Left 3 View XRAY In Process Unspecified. EDMS 21:31 Shoulder Left (2 View) XRAY In Process Unspecified. EDMS 22:15 No provider procedures requiring assistance completed. Patient did not have IV access bb during this emergency room visit. Administered Medications: No medications were administered Outcome: 22:00 Discharge ordered by . ma2 22:15 Discharged to home ambulatory. bb 22:15 Condition: stable 22:15 Discharge instructions given to patient, Instructed on discharge instructions, follow up and referral plans. medication usage, Demonstrated understanding of instructions, follow-up care, medications, Prescriptions given X 2. 22:16 Patient left the ED. bb Signatures: Dispatcher [employer] Miracle Braswell mr Macy Leos, RN RN bb Alzahri, Mohammad, MD MD ma2
--- NOTE | 2020-05-21 22:02 | EDPHYS ---
Physician Documentation [facility] Name: Bob Armstrong Age: 59 yrs Sex: Female : 1960 Arrival Date: 05/21/2020 Time: 18:37 Bed 24 Private MD: ED Physician Lulú Guzman HPI: 05/21 21:58 This 59 yrs old Female presents to ER via Ambulatory with complaints of Fall ma2 Injury. 21:58 Details of fall: The patient fell from seated position. Onset: The symptoms/episode ma2 began/occurred suddenly, 3 day(s) ago. Associated injuries: The patient sustained neck injury, left foot. Severity of symptoms: At their worst the symptoms were very mild, in the emergency department the symptoms are unchanged. The patient has not experienced similar symptoms in the past. Historical: - Allergies: 19:18 Lyrica; bb 19:18 zpack; bb 19:18 steroids; bb - PMHx: 19:18 Depression; Diabetes - NIDDM; Hyperlipidemia; Hypertension; insomnia; osteoarthritis; bb Rheumatoid Arthritis; - Immunization history:: Adult Immunizations up to date. - Social history:: Smoking status: Patient denies any tobacco usage or history of. Patient/guardian denies using alcohol, street drugs, The patient lives with family. - Family history:: not pertinent. ROS: 21:58 Constitutional: Negative for fever, chills, and weight loss, Eyes: Negative for injury, ma2 pain, redness, and discharge. 21:58 All other systems are negative. Exam: 21:58 Constitutional: This is a well developed, well nourished patient who is awake, alert, ma2 and in no acute distress. Head/Face: Normocephalic, atraumatic. Eyes: Pupils equal round and reactive to light, extra-ocular motions intact. Lids and lashes normal. Conjunctiva and sclera are non-icteric and not injected. Cornea within normal limits. Periorbital areas with no swelling, redness, or edema. ENT: Nares patent. No nasal discharge, no septal abnormalities noted. Tympanic membranes are normal and external auditory canals are clear. Oropharynx with no redness, swelling, or masses, exudates, or evidence of obstruction, uvula midline. Mucous membranes moist. Neck: Trachea midline, no thyromegaly or masses palpated, and no cervical lymphadenopathy. Supple, full range of motion without nuchal rigidity, or vertebral point tenderness. No Meningismus. Chest/axilla: Normal chest wall appearance and motion. Nontender with no deformity. No lesions are appreciated. Cardiovascular: Regular rate and rhythm with a normal S1 and S2. No gallops, murmurs, or rubs. Normal PMI, no JVD. No pulse deficits. Respiratory: Lungs have equal breath sounds bilaterally, clear to auscultation and percussion. No rales, rhonchi or wheezes noted. No increased work of breathing, no retractions or nasal flaring. Abdomen/GI: Soft, non-tender, with normal bowel sounds. No distension or tympany. No guarding or rebound. No evidence of tenderness throughout. Back: No spinal tenderness. No costovertebral tenderness. Full range of motion. Skin: Warm, dry with normal turgor. Normal color with no rashes, no lesions, and no evidence of cellulitis. MS/ Extremity: Pulses equal, no cyanosis. Neurovascular intact. Full, normal range of motion. Neuro: Awake and alert, GCS 15, oriented to person, place, time, and situation. Cranial nerves II-XII grossly intact. Motor strength 5/5 in all extremities. Sensory grossly intact. Cerebellar exam normal. Normal gait. Vital Signs: 19:14 BP 138 / 83; Pulse 87; Resp 18 S; Temp 99(O); Pulse Ox 98% on R/A; Weight 129.27 kg bb (R); Height 5 ft. 11 in. (180.34 cm) (R); Pain 4/10; 22:15 BP 142 / 88; Pulse 82; Resp 16 S; Pulse Ox 94% on R/A; bb 19:14 Body Mass Index 39.75 (129.27 kg, 180.34 cm) bb MDM: 20:17 Patient medically screened. ma2 21:58 Differential diagnosis: closed head injury, fracture, sprain, strain. Data reviewed: ma2 vital signs, nurses notes. Counseling: I had a detailed discussion with the patient and/or guardian regarding: the historical points, exam findings, and any diagnostic results supporting the discharge/admit diagnosis, the presence of at least one elevated blood pressure reading (>120/80) during this emergency department visit, the need for outpatient follow up. Response to treatment: the patient's symptoms have markedly improved after treatment. 05/21 20:34 Order name: CT Head C Spine; Complete Time: 21:56 ma2 05/21 20:34 Order name: Foot Left 3 View XRAY ma2 05/21 20:34 Order name: Shoulder Left (2 View) XRAY ma2 05/21 20:35 Order name: Post-op Orthopedic Shoe; Complete Time: 21:26 ma2 Administered Medications: No medications were administered Disposition: 05/21/20 22:00 Discharged to Home. Impression: Nondisplaced fracture of distal phalanx of left lesser toe(s). - Condition is Stable. - Discharge Instructions: Toe Fracture, Jjcu-yj-Nozg. - Prescriptions for Cyclobenzaprine 10 mg Oral Tablet - take 1 tablet by ORAL route every 8 hours As needed; 30 tablet. Diclofenac Sodium 75 mg Oral Tablet Sustained Release - take 1 tablet by ORAL route 2 times per day; 30 tablet. - Medication Reconciliation Form, Thank You Letter, Antibiotic Education, Prescription Opioid Use form. - Follow up: Private Physician; When: Tomorrow; Reason: If symptoms return. Signatures: Dispatcher [employer] EDMacy Alvarenga RN RN bb Alzahri, Mohammad, MD MD ma2 Corrections: (The following items were deleted from the chart) 22: 22:00 05/21/2020 22:00 Discharged to Home. Impression: Displaced fracture of distal ma2 phalanx of left lesser toe(s). Condition is Stable. Prescriptions for Cyclobenzaprine 10 mg Oral Tablet - take 1 tablet by ORAL route every 8 hours As needed; 30 tablet, Diclofenac Sodium 75 mg Oral Tablet Sustained Release - take 1 tablet by ORAL route 2 times per day; 30 tablet. and Forms are Medication Reconciliation Form, Thank You Letter, Antibiotic Education, Prescription Opioid Use. Follow up: Private Physician; When: Tomorrow; Reason: If symptoms return. ma2 22:16 22:01 05/21/2020 22:00 Discharged to Home. Impression: Nondisplaced fracture of distal bb phalanx of left lesser toe(s). Condition is Stable. Prescriptions for Cyclobenzaprine 10 mg Oral Tablet - take 1 tablet by ORAL route every 8 hours As needed; 30 tablet, Diclofenac Sodium 75 mg Oral Tablet Sustained Release - take 1 tablet by ORAL route 2 times per day; 30 tablet. and Forms are Medication Reconciliation Form, Thank You Letter, Antibiotic Education, Prescription Opioid Use. Follow up: Private Physician; When: Tomorrow; Reason: If symptoms return. ma2
[2020-05-21 23:42] VITALS: TEMP 99
[2020-05-21 23:43] VITALS: BP 142/88; O2SAT 94
--- NOTE | 2020-05-22 07:56 | RAD REPORT ---
EXAM DESCRIPTION: RAD - Foot Left 3 View - 05/21/2020 9:32 pm CLINICAL HISTORY: Left Foot pain status post injury FINDINGS: No fracture or dislocation is seen. Bones are osteoporotic. Large plantar calcaneal spur. Screws placed the posterior calcaneus
--- NOTE | 2020-05-22 07:57 | RAD REPORT ---
EXAM DESCRIPTION: RAD - Shoulder Left 2 View - 05/21/2020 9:32 pm CLINICAL HISTORY: Left shoulder pain status post fall FINDINGS: No fracture or dislocation is seen. The bones are osteoporotic
== END 2020-05-21 22:16 | disposition home or self-care (01) ==
LOC: ER 18:30
DX: S92.535A Nondisplaced fracture of distal phalanx of left lesser toe(s), initial encounter for closed fracture (principal); W19.XXXA Unspecified fall, initial encounter; Y93.89 Activity, other specified; Y92.9 Unspecified place or not applicable; Z88.1 Allergy status to other antibiotic agents; Z88.8 Allergy status to other drugs, medicaments and biological substances; I10 Essential (primary) hypertension
CPT/HCPCS: 70450; 72125; 99283

== ENCOUNTER 2020-10-14 13:06 | Emergency (ER) | payer OTHER ==
--- OUTSIDE RECORDS SUMMARY | 2020-10-14 13:13 | XMS REPORT | Continuity of Care Document ---
:1960 Author Organization [facility] t Address [address] [place] [address] Care Team Providers Name Role Phone Thaddeus BROWN Tera Primary Care Physician Liam ANN Attending Clinician Mak ANN, [place] Attending Clinician Mily ANN Attending Clinician MD MILY Attending Clinician Unavailable Starr Main Attending Clinician RUFUS Attending Clinician Unavailable [id number] Attending Clinician Unavailable Ina Rutherford Attending Clinician LAVERN Attending Clinician Unavailable Yolanda Underwood Attending Clinician MILY Admitting Clinician Unavailable MD MILY Admitting Clinician Unavailable Payers Payer Name Policy Type Policy Number Effective Date Expiration Date S ource Problems Condition Condition Condition Status Onset Resolution Last Treating Co mments Source Name Details Category Date Date Treatment Clinician Date 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 - [facility]: Hospit a eye eye 00 l H92.01 - Diagnosis Active 2019-022019-11-25 Tomasa hernandes "OTALGIA, 0-01 12:00:00 l RIGHT EAR" H92.01 - 00:01: Mikel salgado "OTALGIA, 00 RIGHT EAR" Active 11/11/2019 [facility] OPID [place] RIGHT KNEE Diagnosis Active 2016-04-01 Memoria PAIN 2-20 12:48:00 l RIGHT 00:00: [place] KNEE PAIN 00 Active 04/01/2016 [place] STRESS Diagnosis Active 2015-08-10 Mem oria URINARY 4-14 07:24:00 l INCONTINEN STRESS 00:00: Herm archana CE-N39.3 / URINARY 00 URET INCONTINEN CE-N39.3 / URET Active 05/25/2015 [place] R31.2 - Diagnosis Active 2015-06-06 Me moria OTHER 3-14 16:22:00 l MICROSCOPI R31.2 - 00:01: Her brito C OTHER 00 HEMATURIA MICROSCOPI C HEMATURIA Active 04/24/2015 [facility] REEDD [place] 727.00 - Diagnosis Active 2011-09-02 M emoria SYNOVITIS 08-29 08:58:00 l NOS 727.00 - [...] [place] (finding) Resolved Problem 11/26/2019 Tomasa Farrar [place] Chronic Problem Resolve 2019-11-26 Mem oria obstructiv d 23:02:23 l e lung Chronic [place] disease obstructiv (disorder) e lung disease (disorder) Resolved Problem 11/26/2019 Tomasa Farrar [place] Depressive Problem Resolve 2019-11-26 Memoria disorder d 23:02:23 l (disorder) Randy n Depressive disorder (disorder) Resolved Problem 11/26/2019 Tomasa Farrar [place] Diabetes Problem Resolve 2019-11-26 Me moria mellitus d 23:02:23 l (disorder) Diabetes He rmann mellitus (disorder) Resolved Problem 11/26/2019 Tomasa Farrar [place] Endometrio Problem Resolve 2019-11-26 Memoria sis d 23:02:23 l (disorder) Randy n Endometrio sis (disorder) Resolved Problem 11/26/2019 Tomasa Farrar [place] Fibromyosi Problem Resolve 2019-11-26 Memoria tis d 23:02:23 l (disorder) Randy n Fibromyosi tis (disorder) Resolved Problem 11/26/2019 Tomasa Farrar [place] Hypertensi Problem Resolve 2019-11-26 Memoria ve d 23:02:23 l disorder, [place] systemic Hypertensi arterial ve (disorder) disorder, systemic arterial (disorder) Resolved Problem 11/26/2019 Tomasa Farrar [place] Lumbar Problem Resolve 2019-11-26 Alonzo summer spondylosi d 23:02:23 l s Lumbar Amador (disorder) spondylosi s (disorder) Resolved Problem 11/26/2019 Tomasa Farrar [place] Motion Problem Resolve 2019-11-26 Alonzo summer sickness d 23:02:23 l (disorder) Motion Herm archana sickness (disorder) Resolved Problem 11/26/2019 Tomasa Farrar [place] Neuropathy Problem Resolve 2019-11-26 Memoria (disorder) d 23:02:23 l [place] Neuropathy (disorder) Resolved Problem 11/26/2019 Tomasa Farrar [place] Bladder Problem Resolve 2019-11-26 Mem oria muscle d 23:02:23 l dysfunctio Bladder Her brito n - muscle overactive dysfunctio (disorder) n - overactive (disorder) Resolved Problem 11/26/2019 Tomasa Farrar [place] Rheumatoid Problem Resolve 2019-11-26 Memoria arthritis d 23:02:23 l (disorder) Randy n Rheumatoid arthritis (disorder) Resolved Problem 11/26/2019 Tomasa Farrar [place] Sleep Problem Resolve 2019-11-26 Alonzo summer apnea d 23:02:23 l (finding) Sleep Randy n apnea (finding) Resolved Problem 11/26/2019 NISHA KeenanTomasa Antoine [place] History of Past Illness Condition Condition Condition Status Onset Resolution Last Treating Co mments Source Name Details Category Date Date Treatment Clinician Date Discharge Problem 2016-04-04 2016-04-04 Memoria Diagnosis: 2 04:32:29 04:32:29 l Pain and 06:00: [place] swelling Discharge 00 of right Diagnosis: knee Pain and swelling of right knee 04/01/2016 04/04/2016 [place] Allergies, Adverse Reactions, Alerts Allergy Allergy Status Severity Reaction(s) Onset Inactive Treating Comm ents Source Name Type Date Date Clinician Azithrom Propensi Active Other (See Unknown M ethodi ycin ty to Comments) 06-22 st adverse 00:00: Hospita reaction 00 l s to drug Pregabal Propensi Active Swelling 2015-02 Meth gwen in ty to 02-18 adverse 00:00: Hospita reaction 00 l s to drug Invokana Adverse Active Info [...] CAPS allergy [facility] [place] [facility] Lyrica Lyrica Active Memoria l [place] Latex Latex Active Memoria l [place] Adhesive Adhesive Active Memori a l [place] Family History Family Member Diagnosis Comments Start Date Stop Date Source Mother Family history of [facility] [place] diabetes mellitus Physici [facility] Mother Family history of [facility] [place] lung cancer Physicians Mother Family history of [facility] [place] hypertension Physicians Father Family history of [facility] [place] stroke Physicians Brother Family history of [facility] [place] diabetes [facility] Natural father Stroke [facility] Natural mother Lung cancer [facility] Social History Social Habit Start Date Stop Date Quantity Comments Source Tobacco use and 2020-06-22 2020-06-22 Never used [facility] exposure 00:00:00 00:00:00 Hospital Alcohol intake 2020-06-22 2020-06-22 Current [facility] 00:00:00 00:00:00 non-drinker of Hospital alcohol (finding) Social History 2015-08-03 2015-08-03 [facility] 14:18:54 14:18:54 Sex Ass[birth year] At [birth year] [facility] 00:00:00 00:00:00 [facility] Smoking Status Start Date Stop Date Source Never smoker [facility] Medications Ordered Filled Start Stop Current Ordering Indication Dosage Frequency Signature Comments Components Source Medication Medication Date Date Medication? Clinician (SIG) Name Name armodafinil 2020- No 250mg QD Take 250 Methodi (NUVIGIL) 517 05-[address] 250 mg 16:54: 00:00 mouth Hospita tablet 02 :00 daily. l armodafiniL 2020- No [id number] 250mg QD Take 1 Methodi (NUVIGIL) 5-17 -[address] 250 mg 00:00: 05:59 (250 mg Hospita tablet 00 :00 total) by l mouth daily for 180 days. amitriptyli 2020- No [id number] 50mg QD Take 2 Methodi ne (ELAVIL) -14 11-[address] 25 MG 00:00: 05:59 (50 mg Hospita tablet 00 :00 total) by l mouth nightly for 180 days. carBAMazepi 2021- No [id number] 200mg Q.5D Take 1 Methodi ne -13 05-[address] (TEGretoL) 00:00: 04:59 (200 mg Hos ileana 200 mg 00 :00 total) by l tablet mouth 2 (two) times a day. thiamine 2020- No 50mg QD Take 0.5 Meth gwen mononitrate 3-27 04-[address] , vit B1, 00:00: 04:59 (50 mg Hospi ta (B-1) 100 00 :00 total) by l mg tablet mouth daily for 30 days. cyclobenzap 2020- No 10mg Q.[id number] Take 10 mg Methodi rine 3-26 03-26 [id number] by mouth [address] st (FLEXERIL) 21:43: 00:00 3D (three) Hos ileana 10 MG 22 :00 times a l tablet day. celecoxib 2021-0 Yes 200mg Q.5D Take 200 Met hodi (CeleBREX) 3-[address] 200 MG 21:43: mouth 2 Hospita capsule 19 (two) l times a day. hydroxychlo 2020-0 Yes Q.5D Take by Met hodi roquine 3-[address] (PLAQUENIL) 21:43: (two) Hospi ta 200 mg 19 times a l tablet day. PILOCARPINE 2020-0 Yes 7.5mg Q.[id number] Take 7.5 Methodi HCL ORAL 3-[id number] 21:43: 3D mouth 3 Hospita 19 (three) l times a day. LISINOPRIL- 2020-0 Yes 2{tbl} QD Take 2 Me thodi HCTZ 3-[address] 20-12.5 MG 21:43: mouth Hospit a COMBO DOSE 19 daily. l exenatide 2020-0 Yes 2mg Q1W Inject 2 Meth gwen microsphere 3-[address] s 21:43: the skin Hospita (BYDUREON) 19 every 7 l 2 mg/0.65 days. mL pen injector aspirin 0 Yes 81mg QD Take 81 mg Meth gwen (ECOTRIN) 3-[address] 81 MG 21:43: daily. Hospita enteric 19 l coated tablet ALPRAZolam 0 Yes .5mg Q.5D Take 0.5 Met hodi (NIRAVAM) 3-[address] 0.5 MG 21:43: mouth 2 Hospita disintegrat 19 (two) l ing tablet times a day as needed for anxiety. cycloSPORIN 0 Yes 1[drp] Q.5D Administer Methodi E 3-[address] (RESTASIS) 21:43: both eyes Ho spita 0.05 % 19 2 (two) l ophthalmic times a emulsion day. doxepin 2020-0 Yes 10mg QD Take 10 mg Meth gwen (SINEquan) 3-[address] 10 MG 21:43: nightly. Hospita capsule 19 l leflunomide 2020-0 Yes 20mg QD Take 20 mg Methodi (ARAVA) 20 3-[address] MG tablet 21:43: nightly. Hosp ruiz 19 l atorvastati 2021-0 Yes 10mg QD Take 10 mg Methodi n (LIPITOR) -[address] 10 mg 21:43: nightly. Hospita tablet 19 l lithium 300 0 Yes 300mg Q.[id number] Take 300 Methodi MG capsule 3-[id number] 21:43: 3D mouth 3 Hospita 19 (three) l times a day with meals. metFORMIN 0 Yes 1000mg Q.5D Take 1,000 Methodi XR 3-[address] (GLUCOPHAGE 21:43: mouth 2 Hos ileana -XR) 500 mg 19 (two) l 24 hr times a tablet day with meals. sertraline Yes 50mg QD Take 50 mg M ethodi (ZOLOFT) 50 -[address] MG tablet 21:43: daily. Hospit a 19 l golimumab 0 Yes Q30D Infuse Method i (SIMPONI 3-[address] ARIA IV) 21:43: venous Hospita 19 catheter l every 30 (thirty) days. insulin Yes 22U Q.[id number] Inject 22 Methodi lispro -[id number] (HUMALOG 21:43: 3D under the Hosp ruiz KWIKPEN 19 skin 3 l INSULIN (three) SUBQ) times a day with meals. insulin Yes 11U QD Inject 11 Metho di lispro 3-[address] (HUMALOG 21:43: under the Hosp ruiz KWIKPEN 19 skin l INSULIN nightly. SUBQ) insulin Yes 160U QD Inject 160 Meth gwen GLARGINE 3-[address] (Toujeo 21:43: under the Hospi ta SoloStar 19 skin every l U-300 evening. Insulin) 300 unit/mL (1.5 mL) insulin pen predniSONE 0 2020- No 20mg QD Take 1 Meth gwen (DELTASONE) 05-05- tablet (20 s t 20 mg 00:00: 04:59 mg total) Hospit a tablet 00 :00 by mouth l daily for 5 days. suvorexant 0 2020- No QD Take by Met payan (BELSOMRA) 3 03-[address] 20 mg 21:42: 00:00 nightly. Hospita tablet 42 :00 l simvastatin No 40mg QD Take 40 mg Methodi (ZOCOR) 40 05-[address] MG tablet 21:42: 00:00 nightly. Hos ileana 25 :00 l milnacipran 2020- No 50mg Q.5D Take 50 mg Methodi (SAVELLA) 05-[address] 50 mg 21:41: 00:00 (two) Hospita tablet 54 :00 times a l day. METHOTREXAT No .7mL Q7D Inject 0.7 Methodi E SODIUM 05-04- mL as st INJ 21:41: 00:00 directed Hospita 41 :00 once a l week at 4pm. insulin 2020- No 120U QD Inject 120 Met hodi degludec 05-04- Units st (TRESIBA 21:41: 00:00 under the Hos ileana FLEXTOUCH 18 :00 skin l U-100) 100 daily. unit/mL (3 mL) insulin pen folic acid No 2mg QD Take 2 mg M ethodi (FOLVITE) 1 05-[address] MG tablet 21:40: 00:00 daily. Hospi ta 07 :00 l dexlansopra No 60mg QD Take 60 mg Methodi zole 05-[address] (DEXILANT) 21:39: 00:00 daily. Hosp ruiz 60 mg 30 :00 l capsule cranberry 2020- No 1{capsu QD Take 1 Me thodi extract 05-04 le} capsule by st (ELLURA) 21:38: 00:00 mouth Hospita 200 mg 50 :00 daily. l capsule capsule clopidogrel 2020- No 75mg QD Take 75 mg Methodi (PLAVIX) 75 05-[address] mg tablet 21:38: 00:00 daily. Hospi ta 27 :00 l bromfenac 2020- No 1[drp] QD Administer Methodi (XIBROM) 05-04- [address] 0.09 % 21:37: 00:00 into the Hospit a ophthalmic 23 :00 left eye l solution daily. ARIPiprazol 2020-0 2020- No 20mg QD Take 20 mg Methodi e (ABILIFY) 3-25 03-[address] 10 MG 21:36: 00:00 daily. Hospita tablet 49 :00 l Amoxicillin Amoxicillin 2019-0 2020- No Luciano [address] [facility] [facility] - 00:[facility]: [facility]:00 Memoria 00 :00 l [facility] Furosemide Furosemide 2018- Yes Luciano 0.[address] [facility] [facility] - 00:00: Memoria 00 l [facility] Hydrocodone Hydrocodone 2017-02 Yes Luciano [address] -Acetaminop -Acetaminop 0 [facility] as needed [facility] - hen hen 00:00: Memoria 00 l [facility] Tolterodine Tolterodine Yes BLACK 1 PO QD Univers Tartrate ER Tartrate ER 4-30 [place] ity of 4 MG Oral 4 MG Oral 00:00: N.P. Lionel as Capsule Capsule 00 Physici Extended Extended ans Release 24 Release 24 Hour Hour Zetia No Notes: Memoria 08-10 (Same as: l 14:00: Zetia) [place] 00 Dexilant 2015-0 No 60 mg, Memoria 08-10 Route: PO, l 14:00: Drug form: [place] 00 DRC, Daily, Dosing Weight 134.5, kg, Start date: 08/11/15 9:00:00 CDT, Duration: 30 day, Stop date: 09/09/15 9:00:00 CDT Nuvigil 2015-0 No 250 mg, Memoria 08-10 Route: PO, l 14:00: Drug form: [place] 00 TAB, Daily, Dosing Weight 134.5, kg, Start date: 08/11/15 9:00:00 CDT, Duration: 30 day, Stop date: 09/09/15 9:00:00 CDT Abilify 2015-0 No 20 mg, Memoria 08-10 Route: PO, l 14:00: Drug form: [place] 00 TAB, Daily, Dosing Weight 134.5, kg, Start date: 08/11/15 9:00:00 CDT, Duration: 30 day, Stop date: 09/09/15 9:00:00 CDT Deplin No 15 mg, Memoria 08-10 Route: PO, l 14:00: Drug form: [place] 00 CAP, Daily, Dosing Weight 134.5, kg, Start date: 08/11/15 9:00:00 CDT, Duration: 30 day, Stop date: 09/09/15 9:00:00 CDT Hydrochloro No 1 tab, Alonzo summer thiazide 08-10 Route: PO, l 12.5 MG / 14:00: Drug Form: Mikel salgado Lisinopril 00 TAB, 10 MG Oral Dosing Tablet Weight 134.5, kg, Daily, Start date: 08/11/15 9:00:00 CDT, Duration: 30 day, Stop date: 09/09/15 9:00:00 CDT Savella No 50 mg, Memoria 08-09 Route: PO, l 22:00: Drug form: [place] 00 TAB, BID, Dosing Weight 134.5, kg, Start date: 08/10/15 17:00:00 CDT Ketorolac No 4 days Memor ia -30 l 17:00: MEDICATION WASTE Product Size: 30 mg Product Wasted: _15__ mg Insulin, No Notes: Memoria Aspart, 630 Roll in l Human 16:29: palms of [...] 16:29: Narcan Meperidine No Notes: Memor ia 630 (Same as: l 16:29: Demerol) "Use Precaution in Elderly, Seizure disorders, and Renal impairment " Promethazin No Notes: Do M emoria e 6-30 not give l 16:29: IV push. (Same as: Phenergan) Dexamethaso No Notes: Alonzo summer ne 6-30 Concentrat l 16:29: ion: [place] 00 4mg/ml Ondansetron No Notes: Alonzo summer 6-30 (Same as: l 16:29: Zofran) MEDICATION WASTE Product Size: 4 mg Product Wasted: ___ mg Diphenhydra No Notes: Alonzo summer mine 6-30 (Same as: l 16:29: Benadryl) Albuterol No Notes: SEE Me moria 0.83 MG/ML 6-30 RT l Inhalant 16:29: DOCUMENTAT Her brito Solution 00 ION (Same as: Proventil) Atropine No Notes: Mem oria 6-30 MEDICATION l 16:29: WASTE Product Size: 0.4 mg Product Wasted: _0.2__ mg Glycopyrrol No Notes: Alonzo summer ate -30 (Same as: l 16:29: Robinul) Phenylephri No Notes: Alonzo summer ne 6-30 Same as: l 16:29: Erik-Syneph rine Albuterol No Notes: Memori a 0.833 MG/ML -30 (Same as: l / 16:29: Duoneb) [place] Ipratropium 00 [place] 0.167 MG/ML Inhalant Solution [DuoNeb] celecoxib Yes Notes: Memori a 6-30 NSAID. l 16:29: Please check indication . Not for seizure. (Same As: CeleBREX) 72 HR Yes Notes: Memoria Scopolamine 6-30 Change l 0.0139 16:29: patch Amador MG/HR 00 every 72 Transdermal hours Patch (Same as: Transderm- Scop) Midazolam No Notes: Memori a 6-30 (Same as: l 16:29: Versed) MEDICATION WASTE Product Size: 2 mg Product Wasted: _1__ mg Ephedrine No Notes: Memori a 6-30 (Same as: l 16:29: ePHEDrine Sulfate) Flumazenil No Notes: Memor ia 6-30 (Same as: l 16:29: Romazicon) Amador 00 Calcium No 1,000 mL, Memor ia Chloride 6-30 Rate: 125 l 0.0014 16:29: ml/hr, [place] MEQ/ML / 00 Infuse Potassium over: 8 [...] en 6-30 Infuse l 16:29: over 15 [place] 00 minutes Do not exceed 4gm/day of acetaminop hen MEDICATION WASTE Product Size: 1000 mg Product Wasted: ___ mg Ibuprofen No Notes: Memori a 6-30 (Same as: l 16:29: Motrin) "Do Not Crush" Take with food. Acetaminoph No Notes: Do M emoria en 6-30 not exceed l 16:24: 4 gm/day. (Same as: Tylenol) Hydromorpho No Notes: Alonzo summer ne 6-30 (Same as: l 16:24: Dilaudid) Acetaminoph No Notes: Alonzo summer en 325 MG / 6-30 (Same as: l Hydrocodone 16:24: [place] Judith nn Bitartrate 00 325/5) Do 5 MG Oral not exceed Tablet 4gm/day of acetaminop hen. Tramadol No Notes: Not Mem oria 6-30 to exceed l 16:24: 400mg/day. (Same As: Ultram) ondansetron No Route: IV, Memoria (ANES) 6-30 Drug form: l 16:11: INJ, ONCE, Stop date: 08/10/15 11:11:00 CDT phenylephri No Route: IV, Memoria ne (ANES) 6-30 Drug form: l 16:01: INJ, ONCE, Stop date: 08/10/15 11:01:00 CDT succinylcho No Route: IV, Memoria line (ANES) 6-30 Drug form: l 15:45: INJ, ONCE, Stop date: 08/10/15 10:45:00 CDT propofol No Route: IV, Mem oria (ANES) 6-30 Drug form: l 15:45: INJ, ONCE, Stop date: 08/10/15 10:45:00 CDT lidocaine No Route: IV, Me moria (ANES) 6-30 Drug form: l 15:45: INJ, ONCE, Stop date: 08/10/15 10:45:00 CDT fentaNYL No Route: IV, Mem oria (ANES) 6-30 Drug form: l 15:45: INJ, ONCE, [place] 00 Stop date: 08/10/15 10:45:00 CDT midazolam No Route: IV, Me moria (ANES) 08-09 Drug form: l 15:45: SOLN, [place] 00 ONCE, Stop date: 08/10/15 10:45:00 CDT ePHEDrine No Route: IV, Me moria (ANES) 08-09 Drug form: l 15:40: INJ, ONCE, Amador 00 Stop date: 08/10/15 10:40:00 CDT ceFAZolin No Route: IV, Me moria (ANES) 08-09 Drug form: l 15:34: INJ, ONCE, Stop date: 08/10/15 10:34:00 CDT LR 1000 mL No Route: IV, M emoria INJ (ANES) 08-09 Total l 14:51: Volume: [place] 00 1,000, Start date: 08/10/15 9:51:00 CDT, Stop date: 08/10/15 10:51:00 CDT Insulin, No Notes: Memoria Aspart, -30 Roll in l Human 13:01: palms of [place] 00 hands gently; Do not shake vigorously [...] Calcium No 1,000 mL, Memor ia Chloride 630 Rate: 25 l 0.0014 13:01: ml/hr, [place]ador MEQ/ML / 00 Infuse Potassium over: 40 Chloride hr, Route: 0.004 IV, Dosing MEQ/ML / Weight Sodium 134.091 Chloride kg, Total 0.103 Volume: MEQ/ML / 1,000, Sodium Start Lactate date: 0.028 08/10/15 MEQ/ML 8:01:00 Injectable CDT, Solution Duration: 30 day, Stop date: 09/09/15 8:00:00 CDT BD Normal No Notes: Memori a Saline 30 (Same as: l Flush 11:00: BD [place] 00 Posiflush) Ancef No Notes: Memoria 6-30 Same as: l 11:00: Ancef [place] 00 Deplin 15 Yes 15 mg = 1 Mem oria mg oral 6-23 cap, PO, l capsule 14:59: Daily, 0 Randy n 00 Refill(s) armodafinil Yes 250 mg = 1 Memoria 250 MG Oral 6-23 tab, PO, l Tablet 14:58: Daily, # [place] [Nuvigil] 00 30 tab, 0 Refill(s) Suvorexant Yes 10 mg = 1 Me moria 10 MG Oral 6-23 tab, PO, l Tablet 14:57: Bedtime, 0 Judith nn [Belsomra] 00 Refill(s) ezetimibe Yes 10 mg = 1 Mem oria 10 MG Oral 6-23 tab, PO, l Tablet 14:56: Daily, 0 [place] [Zetia] 00 Refill(s) Milnacipran Yes 50 mg [...] 0 Her brito Tablet 00 Refill(s) [VESICARE] Hydroxychlo Yes 200 mg, Mem oria roquine 6-23 PO, Daily, l 14:53: 0 [place] 00 Refill(s) pilocarpine Yes 7.5 mg = 1 Memoria 7.5 mg oral 6-23 tab, PO, l tablet 14:53: TID, # 90 Randy n 00 tab, 0 Refill(s) cyclobenzap Yes 10 mg = 1 M emoria rine 10 mg 6-23 tab, PO, l oral tablet 14:53: TID, PRN He rmann 00 for spasms, # 30 tab, 0 Refill(s) celecoxib Yes 200 mg = 1 Me moria 200 MG Oral 6-23 cap, PO, l Capsule 14:52: BID, 0 [place] [Celebrex] 00 Refill(s) Methotrexat Yes 0 Memori a e 6-23 Refill(s) l 14:52: [place] 00 Methotrexat Yes INTRATHECA Memoria e Sodium, 6-23 L, ONCE, 0 l Preservativ 14:52: Refill(s) H ermann e Free 25 00 mg/mL injectable solution Folic Acid Yes 1 mg = 1 Mem oria 1 MG Oral 6-23 tab, PO, l Tablet 14:51: Daily, 0 [place] 00 Refill(s) Celebrex Celebrex Yes Luciano 1 [...] [facility] Rafita Eller Yes Luciano not [facility] SoloStar SoloStar [facility] defined [facility] l [facility] Tolterodine Tolterodine Yes Luciano [address] Tartrate ER Tartrate ER [facility] [place] [facility] Hemocyte Hemocyte Yes Luciano [address] [facility] Plus Plus [facility] [place] [facility] Folic Acid Folic Acid Yes Luciano [address] [facility] Memoria l [facility] MetFORMIN MetFORMIN Yes Luciano [address] HCl ER HCl ER Travis at night [facility] Metformin Metformin Yes Luciano [address] HCl HCl [facility]ics Saphris Saphris Yes Luciano [address] [facility] under the [facility]ukes - tongue and Memoria allow to l dissolve [facility] Paxil Paxil Yes Luciano [address] [facility] Colace Colace Yes Luciano [address] [facility] as needed [facility] Clinics Abilify 20 Abilify 20 [...] rs HCl TABS HCl TABS [facility] [place] [facility] Tresiba Tresiba Yes Univers FlexTouch FlexTouch ity o f SOPN SOPN [place] [facility] Bydureon Bydureon Yes Univers PEN PEN [facility] [place] [facility] Vital Signs Vital Name Observation Time Observation Value Comments Source Systolic blood 2020-06-22 144 mm[Hg] [facility] pressure 15:10:00 Hospital Diastolic blood 2020-06-22 65 mm[Hg] [facility] pressure 15:10:00 Hospital Heart rate 2020-06-22 88 /min [facility] 15:10:00 Hospital Body temperature 2020-06-22 36.22 Teresa [facility] 15:10:00 Hospital Body height 2020-06-22 180.3 cm [facility] 15:10:00 Hospital Respiratory rate 2020-05-05 16 /min [facility] 20:27:41 Hospital Oxygen saturation 2020-05-05 98 /min [facility] in Arterial blood 20:27:41 Hospital by Pulse oximetry Body weight 2020-05-04 128.187 kg [facility] 22:05:46 Hospital BMI 2020-05-04 39.41 kg/m2 [facility] 22:05:46 Hospital BP Systolic 2017-09-03 130 mm[Hg] Location: [facility] 11::00 Position: [place] [facility] Sitting BP Diastolic 2017-09-03 80 mm[Hg] Location: [facility] :02:00 Position: [place] [facility] Sitting Height 2017-09-03 71 [in_us] [facility] 11:02:00 [place] [facility] s Weight 2017-09-03 298 [lb_av] [facility] 11:02:00 [place] Phys[facility] s Body Mass Index 2017-09-03 41.56 kg/m2 University o f Calculated 11:02:00 [place] [facility] s Temperature 2017-09-03 97.8 [degF] [facility] 11:02:00 [place] Physician s BP Systolic 2017-08-27 108 mm[Hg] [facility] Position: [place] Physician [facility] Sitting BP Diastolic 2017-08-27 70 mm[Hg] Location: NAIN; [facility] 14::00 Position: [place] Physician s Sitting Height 2017-08-27 71 [in_us] University 14:27:00 [place] [facility] s Weight 2017-08-27 298 [lb_av] University 14:27:00 [place] [facility] s Body Mass Index 2017-08-27 41.56 kg/m2 University o f Calculated 14:27:00 [place] [facility] s Temperature 2017-08-27 97.9 [degF] University of 14:27:00 [place] Physician s BP Systolic 2017-08-21 130 mm[Hg] Location: NAIN; [facility] 10:23:00 Position: [place] Physician s Sitting BP Diastolic 2017-08-21 84 mm[Hg] Location: NAIN; [facility] 10:23:00 Position: [place] Physician s Sitting Height 2017-08-21 71 [in_us] University 10:23:00 [place] [facility] s Weight 2017-08-21 298 [lb_av] [facility] 10:23:00 [place] [facility] s Body Mass Index 2017-08-21 41.56 kg/m2 University o f Calculated 10:23:00 [place] Phys[facility] s BP Systolic 2017-08-14 150 mm[Hg] Location: NAIN; [facility] 10:53:00 Position: [place] Physician s Sitting BP Diastolic 2017-08-14 72 mm[Hg] Location: NAIN; [facility] 10:53:00 Position: [place] Physician s Sitting Height 2017-08-14 71 [in_us] University 10:53:00 [place] [facility] s Weight 2017-08-14 298 [lb_av] University 10:53:00 [place] [facility] s Body Mass Index 2017-08-14 41.56 kg/m2 University o f Calculated 10:53:00 [place] Phys[facility] s Temperature 2017-08-14 98.8 [degF] University of 10:53:00 [place] Physician s BP Systolic 2017-07-31 132 mm[Hg] Location: NAIN; [facility] 13:51:00 Position: [place] Physician s Sitting BP Diastolic 2017-07-31 68 mm[Hg] Location: NAIN; [facility] 13:51:00 Position: [place] Phys[place] Sitting Height 2017-07-31 71 [in_us] [facility] 13:51:00 [place] [facility] Weight 2017-07-31 298 [lb_av] [facility] of 13:51:00 [place] [facility] Body Mass Index 2017-07-31 41.56 kg/m2 University o f Calculated 13:51:00 [place] [facility] Temperature 2017-07-31 98.2 [degF] [facility] of 13:51:00 [place] [facility] [facility] BP Systolic 2017-07-24 122 mm[Hg] Location: TED; [facility] 13:30:00 Position: [place] Phys[place] Sitting BP Diastolic 2017-07-24 72 mm[Hg] Location: NAIN; [facility] 13:30:00 Position: [place] Phys[place] Sitting Height 2017-07-24 71 [in_us] [facility] 13:30:00 [place] [facility] Weight 2017-07-24 298 [lb_av] [facility] of 13:30:00 [place] [facility] [facility] Body Mass Index 2017-07-24 41.56 kg/m2 University o f Calculated 13:30:00 [place] [facility] Temperature 2017-07-24 98.4 [degF] [facility] of 13:30:00 [place] [facility] BP Systolic 2017-07-17 110 mm[Hg] Location: [facility]; [facility] 14:32:00 Position: [place] Physician s Sitting BP Diastolic 2017-07-17 80 mm[Hg] Location: [facility]; [facility] 14:32:00 Position: [place] Phys[place] Sitting Height 2017-07-17 71 [in_us] [facility] 14:32:00 [place] [facility] Weight 2017-07-17 298 [lb_av] [facility] of 14:32:00 [place] [facility] Body Mass Index 2017-07-17 41.56 kg/m2 University o f Calculated 14:32:00 [place] [facility] BP Systolic 2017-07-03 142 mm[Hg] Location: [facility]; [facility] 09:36:00 Position: [place] Phys[place] Sitting BP Diastolic 2017-07-03 80 mm[Hg] Location: [facility]; [facility] 09:36:00 Position: [place] Phys[place] Sitting Height 2017-07-03 71 [in_us] [facility] 09:36:00 [place] [facility] Weight 2017-07-03 298 [lb_av] [facility] 09:36:00 [place] [facility] Body Mass Index 2017-07-03 41.56 kg/m2 University o f Calculated 09:36:00 [place] [facility] Temperature 2017-07-03 97.4 [degF] [facility] of 09:36:00 [place] [facility] BP Systolic 2017-06-19 140 mm[Hg] Location: TED; [facility] ::00 Position: [place] Physician [place] Sitting BP Diastolic 2017-06-19 80 mm[Hg] Location: TED; [facility] 15:26:00 Position: [place] Physician [facility] Sitting Height 2017-06-19 71 [in_us] [facility] 15:26:00 [place] [facility] Weight 2017-06-19 298 [lb_av] University 15:26:00 [place] [facility] Body Mass Index 2017-06-19 41.56 kg/m2 University o f Calculated 15:26:00 [place] [facility] Temperature 2017-06-19 97.9 [degF] [facility] ::00 [place] [facility] [place] BP Systolic 2017-06-12 118 mm[Hg] Location: NAIN; [facility] 13:28:00 Position: [place] Physician s Sitting BP Diastolic 2017-06-12 80 mm[Hg] Location: TED; [facility] 13:28:00 Position: [place] Phys[place] Sitting Height 2017-06-12 71 [in_us] University 13:28:00 [place] [facility] Weight 2017-06-12 298 [lb_av] University 13:28:00 [place] [facility] Body Mass Index 2017-06-12 41.56 kg/m2 University o f Calculated 13:28:00 [place] [facility] BP Systolic 2017-06-09 160 mm[Hg] Location: NAIN; [facility] 09:20:00 Position: [place] Physician [place] Sitting BP Diastolic 2017-06-09 92 mm[Hg] Location: NAIN; [facility] 09:20:00 Position: [place] Physician [place] Sitting Height 2017-06-09 71 [in_us] University 09:20:00 [place] [facility] Weight 2017-06-09 298 [lb_av] University 09:20:00 [place] [facility] Body Mass Index 2017-06-09 41.56 kg/m2 University o f Calculated 09:20:00 [place] [facility] Temperature 2017-06-09 98.2 [degF] [facility] 09:20:00 [place] [facility] Respitory [facility] 2016-04-01 [facility]16[facility]00 Systolic (mm Hg) 2016-04-01 [facility] rmann 21:16:00 Diastolic (mm Hg) 2016-04-01 [facility] H ermann 21:16:00 Temperature Oral 2016-04-01 99.1 [...] n 13:14:00 Temperature Oral 2015-08-03 98.5 F [facility] (F) 14:50:00 Height 2015-08-03 180.34 cm [facility] Randy n 13:51:00 Procedures Procedure Date / Time Performing Clinician Source Performed MRI BRAIN W WO CONTRAST 2020-05-05 18:29:00 Vidal Ortiz [facility] POC GLUCOSE 2020-05-05 17:10:00 Chloe Minor TTE COMPLETE, WO CONTRAST, 2020-05-05 15:22:00 Vidal Ortiz [facility] W AGITATED SALINE (74336) POC GLUCOSE 2020-05-05 12:19:00 [facility] HEMOGLOBIN A1C 2020-05-05 10:15:00 [facility] SED[facility] RATE 2020-05-05 10:15:00 [facility] RAPID HIV 1 & 2 2020-05-05 10:15:00 Vidal Ortiz [facility] [place] SYPHILIS TREPONEMA SCREEN 2020-05-05 10:15:00 Vidal Ortiz [facility] WITH RPR CONFIRMATION (REVERSE ALGORITHM) ESTIMATED GFR 2020-05-05 10:15:00 [facility]-REACTIVE PROTEIN 2020-05-05 10:15:00 [facility] HC COMPLETE BLD COUNT 2020-05-05 10:15:00 [facility] W/AUTO DIFF BASIC METABOLIC PANEL 2020-05-05 10:15:00 Aura [facility] VITAMIN B12 LEVEL 2020-05-05 10:15:00 [facility] VITAMIN B1 LEVEL, WHOLE 2020-05-05 10:15:00 Diana [facility] BLOOD THYROID STIMULATING 2020-05-05 10:15:00 [facility] HORMONE LIPID PANEL 2020-05-05 10:15:00 [facility] P[facility] GLUCOSE 2020-05-05 01:38:00 Chloe Minor [facility] spital POC GLUCOSE 2020-05-04 22:14:00 [facility] 2020-05-04 20:33:00 [facility] URINALYSIS SCREEN AND 2020-05-04 20:33:00 Tom Means [facility] MICROSCOPY, WITH REFLEX TO CULTURE COVID-19 QUALITATIVE 2020-05-04 20:27:00 Tom Means [facility] RT-PCR ECG 12-LEAD 2020-05-04 20:21:36 Chloe Minor [facility] spital CT ANGIOGRAM NECK W WO 2020-05-04 19:46:05 Tom Means [facility] CONTRAST CT ANGIOGRAM HEAD W WO 2020-05-04 19:45:38 Tom Means [facility] CONTRAST CT STROKE BRAIN WO 2020-05-04 19:36:06 Tom Means [facility] CONTRAST HC COMPLETE BLD COUNT 2020-05-04 19:19:00 Tom Means [facility] W/AUTO DIFF PARTIAL THROMBOPLASTIN 2020-05-04 19:19:00 [facility] TIME (PTT) PROTHROMBIN TIME WITH INR 2020-05-04 19:19:00 [facility] COMPREHENSIVE METABOLIC 2020-05-04 19:19:00 [facility] PANEL ESTIMATED GFR 2020-05-04 19:19:00 [facility] [[facility]] CULTURE, URINE, 2017-08-27 00:00:00 [facility] Physicians [[facility]] CULTURE, URINE, 2017-08-21 00:00:00 [facility] [[facility]] CULTURE, URINE, 2017-06-09 00:00:00 [facility] ROUTINE Physicians History of Ankle Surgery [facility] Physicians History of Hysteroscopy [facility] With Endometrial Ablation Physic ians CHILO - Endometrial laser [facility] ablation Limbal stem cell [facility] transplantation ORIF - Open reduction and Memori al Sulligent internal fixation of fracture Tendon operation [facility] Plan of Care Planned Activity Planned Date Details Comments Source Future Scheduled Test DIABETES: RETINAL EYE [facility] EXAM [code = DIABETES: RETINAL EYE EXAM] Future Scheduled Test DIABETIC FOOT EXAM [facility] [code = DIABETIC FOOT EXAM] Future Scheduled Test URINE MICROALBUMIN [facility] [code = URINE MICROALBUMIN] Future Scheduled Test COVID-19 VACCINE (1) [facility] [code = COVID-19 VACCINE (1)] Future Scheduled Test Hepatitis C screening [facility] (procedure) [code = 159799975] Future Scheduled Test Screening for malignant [facility] neoplasm of cervix (procedure) [code = 279921406] Future Scheduled Test BREAST CANCER SCREENING [facility] [code = BREAST CANCER SCREENING] Future Scheduled Test COLONOSCOPY SCREENING [facility] [code = COLONOSCOPY SCREENING] Future Scheduled Test SHINGLES VACCINES (#1) [facility] [code = SHINGLES VACCINES (#1)] Future Scheduled Test INFLUENZA VACCINE [code [facility] = INFLUENZA VACCINE] Encounters Start End Encounter Admission Attending Care Care Encounter Source Date/Time Date/Time Type Type Clinicians Facility Department ID 2020-10-12 2020-10-12 Outpatient [facility] [id number] [facility] 2020-09-28 2020-09-28 Documentat Jada Martell 1.2.840.1 [id number] [facility] 00:00:00 00:00:[address] 3.430.2.7 Hospit a .3.191495 l .8 2020-06-22 2020-06-22 Office Jada Martell 1.2.840.1 [id number] [facility] 09:54:22 10:40:[address] 3.430.2.7 Hospit a .3.935482 l .8 2020-06-22 2020-06-22 Outpatient JADA MARTELL [facility] [id number] [place] 00:00:00 00:00:[address] 2020-06-22 2020-06-22 Travel 1.2.840.1 [id number] [id number] [facility] 00:00:00 00:00:[address] 3.430.2.7 0.2.7.3.698 Ho spita .3.933427 084.8 l .8 2020-06-01 2020-06-01 Outpatient [facility] [id number] [facility] 2020-06-01 2020-06-01 Outpatient [facility] [id number] [facility] 2020-05-30 2020-05-30 Travel 1.2.840.1 1.2.731.420 [id number] [facility] 00:00:00 00:00:[address] 3.430.2.7 0.2.7.3.698 Ho spita .3.271471 084.8 l .8 2020-05-26 2020-05-26 [facility] [id number] 2020-05-17 2020-05-17 [facility] [id number] 2020-05-04 2020-05-05 Emergency Kingsley Corado 1.2.840.1 [id number] [facility] 13:01:00 16:43:00 Chloe Minor [address]57.1.[address] 3.430.2.7 Hospit a .3.089928 l .8 2020-05-04 2020-05-05 Outpatient CHLOE MINOR [facility] [id number] [place] 00:00:00 00:00:[address] 2020-05-04 2020-05-04 Travel 1.2.840.1 [id number] [id number] [facility] 00:00:00 00:00:[address] 3.430.2.7 0.2.7.3.698 Ho spita .3.628693 084.8 l .8 2020-04-14 2020-04-14 [facility] [id number] 2020-04-10 2020-04-10 [facility] [id number] [facility] 2020-03-31 2020-03-31 Outpatient [facility] [id number] [facility] 2020-03-23 2020-03-23 Outpatient [facility] [id number] [facility] 2020-03-23 2020-03-23 Outpatient [facility] [id number] [facility] 2020-03-14 2020-03-14 Outpatient [facility] [id number] [facility] 2020-03-07 2020-03-07 Outpatient [facility] [id number] [facility] 2020-02-28 2020-02-28 Outpatient [facility] [id number] [facility] 2020-02-24 2020-02-24 Outpatient [facility] [id number] [facility] 2020-02-23 2020-02-23 Outpatient [facility] [id number] [facility] 2020-02-23 2020-02-23 Outpatient [facility] [id number] [facility] 2019-11-24 2019-11-25 Outpt Diag nullFlavo [facility] [id number] Memoria 14:28:00 04:59:00 Services r Outpatient [address] Amador Maybrook 2019-11-24 2019-11-24 Outpatient VY Main [facility] [id number] 09:28:00 23:59:00 Rena Clements 2019-11-11 2019-11-11 Outpatient [facility] [id number] [facility] 2019-11-02 2019-11-02 [facility] [id number] 2019-11-02 2019-11-02 [facility] [id number] 2019-10-27 2019-10-27 [facility] [id number] 14:10:00 14:10:00 [place] Platiza LuAquiris s - Drive [facility] l Medicine Outpati ent Clinics 2019-10-27 2019-10-27 [facility] [id number] 10:59:00 10:59:00 [place] Welcome Real-time s - Drive [facility] Medicine l Medicine Outpati ent Clinics 2019-10-12 2019-10-12 [facility] [id number] 08:20:00 08:20:00 [place] Welcome Real-time s - Drive [facility] l Medicine Outpati ent Clinics 2019-09-22 2019-09-22 [facility] [id number] 08:30:00 08:30:00 [place] Welcome Real-time s - Drive [facility] l Medicine Outpati ent Clinics 2019-08-10 2019-08-10 [facility] [id number] 13:30:00 13:30:00 [place] Welcome Real-time s - Drive [facility] l Medicine Outpati ent Clinics 2019-04-02 2019-04-02 [facility] [id number] 15:07:00 15:07:00 t [place] Welcome Real-time s - Drive [facility] Medicine l Medicine Outpati ent Clinics 2019-03-16 2019-03-16 [facility] [id number] 17:04:00 17:04:00 t [place] Welcome Real-time s - Drive [facility] Medicine l Medicine Outpati ent Clinics 2018-12-03 2018-12-03 [facility] [id number] 16:41:00 16:41:[address] Luke s - Drive [facility] Medicine Outpati ent Clinics 2018-11-18 2018-11-18 [facility] [id number] 08:00:00 08:00:[address] Luke s - Drive [facility] Medicine Outpati ent Clinics 2018-07-22 2018-07-22 [facility] [id number] 08:30:00 08:30:[address] Luke s - Drive [facility] Medicine Outpati ent Clinics 2018-06-10 2018-06-10 [facility] [id number] 09:53:00 09:53:[address] Luke s - Drive [facility] Medicine Outpati ent Clinics 2018-03-23 2018-03-23 [facility] [id number] 14:00:00 14:00:[address] Luke s - Drive [facility] Medicine Outpati ent Clinics 2018-03-19 2018-03-19 [facility] [id number] 10:45:00 10:45:[address] Luke s - Drive [facility] Medicine Outpati ent Clinics 2017-11-10 2017-11-10 [facility] [id number] 10:15:00 10:15:[address] Luke s - Drive [facility] Medicine Outpati ent Clinics 2017-11-06 2017-11-06 [facility] [id number] 08:00:00 08:00:[address] Luke s - Drive [facility] Medicine Outpati ent Clinics 2017-09-23 2017-09-23 [facility] [id number] 16:07:00 16:07:[address] Luke s - Drive [facility] Medicine Outpati ent Clinics 2017-09-03 2017-09-03 AppointRHIANNON uS UroGynecosilvano 4 [id number] Univers 11:00:00 11:00:00 tDemarcus CLEANING NP [facility] it y of Seferino HOOPER NP Physic i ans 2017-08-27 2017-08-27 [facility] RHIANNON HOOPER UroGynecolo 4 [id number] Univers 14:10:00 14:10:00 t; KARISSA CLEANING gy Center it [facility] Lionela s KARISSA CLEANING Physic i ans 2017-08-21 2017-08-21 [facility] RHIANNON HOOPER UroGynecolo 4 [id number] Univers 10:10:00 10:10:00 t; KARISSA CLEANING gy Center it [facility] KARISSA CLEANING Physic i ans 2017-08-14 2017-08-14 [facility] RHIANNON HOOPER UroGynecolo 4 [id number] Univers 11:00:00 11:00:00 t; KARISSA CLEANING gy Center it y [facility] KARISSA CLEANING Physic i ans 2017-07-31 2017-07-31 [facility] RHIANNON HOOPER UroGynecolo 4 [id number] Univers 14:10:00 14:10:00 t; KARISSA CLEANING gy Center it [facility] KARISSA CLEANING Physic i ans 2017-07-24 2017-07-24 [facility] RHIANNON HOOPER UroGynecolo 4 [id number] Univers 13:20:00 13:20:00 t; KARISSA CLEANING gy Center it [facility] Lionela s KARISSA CLEANING Physic i ans 2017-07-17 2017-07-17 [facility] RHIANNON HOOPER UroGynecolo 4 [id number] Univers 14:10:00 14:10:00 t; KARISSA CLEANING gy Center it y [facility] KARISSA CLEANING Physic i ans 2017-07-03 2017-07-03 Appointmen UROGYN1, UTP Women's [id number] Univers 09:00:00 09:00:00 t; DERESKA Center ity of [address] [place] Physici ans 2017-06-26 2017-06-26 Appointmen RHIANNON HOOPER UroGynecolo 4 [id number] Univers 09:00:00 09:00:00 t; KARISSA CLEANING gy Center it y of [place] [facility] KARISSA CLEANING Physic i ans 2017-06-25 2017-06-25 Outpatient Nestor Baezt [id number] 09:30:00 09:30:00 t Formerly named [facility] Medicine Medicine Outpati ent Clinics 2017-06-19 2017-06-19 AppointRHIANNON Su UroGynecolo 4 [id number] Univers 15:20:00 15:20:00 t; KARISSA CLEANING gy Center it y of [facility] s KARISSA CLEANING Physic i ans 2017-06-12 2017-06-12 [facility] RHIANNON HOOPER UroGynecolo 4 [id number] Univers 13:20:00 13:20:00 t; KARISSA CLEANING gy Center it y of [facility] s KARISSA CLEANING Physic i ans 2017-06-09 2017-06-09 Appointguerita HOOPER, RHIANNON UTP [id number] Univers 09:20:00 09:20:00 t; KARISSA CLEANING ity of [place], [place] KARISSA CLEANING Physic i ans 2016-12-19 2016-12-19 [facility] RUFUS, [facility] UTP [id number] Univers 10:10:00 10:10:00 t; KARISSA CLEANING ity of [place], [place] KARISSA CLEANING Physic i ans 2016-11-28 2016-11-28 [facility] RUFUS, RHIANNON UTP [id number] Univers 10:10:00 10:10:00 t; KARISSA CLEANING ity of [place], [place] KARISSA CLEANING Physic i ans 2016-09-12 2016-09-12 [facility] RUFUS, [facility] UTP [id number] Univers 13:20:00 13:20:00 t; KARISSA CLEANING ity of [place], [place] KARISSA CLEANING Physic i ans 2016-04-01 2016-04-01 Emergency [facility] [id number] [facility] 17:43:00 23:41:00 john English 02 l [place] Judith 2016-04-01 2016-04-01 Outpatient Julio C [place] MHSL MHSL [id number] 11:43:00 17:41:00 Ina 2015-11-30 2015-11-30 [facility] RHIANNON HOOPER UTP [id number] Univers 09:00:00 09:00:00 t; KARISSA CLEANING ity [place], [place] KARISSA CLEANING Physic i ans 2015-10-20 2015-10-20 [facility] [id number] Univers 10:10:00 10:10:00 t; Preeti CARTER [facility] Myrtle CARTER M.D. Physi ci ans 2015-09-21 2015-09-21 [facility] [id number] Univers 13:00:00 13:00:00 t; Preeti CARTER [facility] Myrtle CARTER M.D. Physi ans 2015-08-10 2015-08-10 OBS Day nullFlavo [facility] [id number] Memoria 12:24:00 19:42:00 Surgery r Amador 00 l [place] Judith 2015-08-10 2015-08-10 [facility] [id number] 07:24:00 14:42:00 Andressa 00 Juan Antonioapple 2015-08-10 2015-08-10 [facility] [id number] Univers 09:30:00 09:30:00 t; Preeti CARTER [facility] Myrtle CARTER M.D. Physi ci ans 2015-08-02 2015-08-02 [facility] [id number] Univers 08:30:00 08:30:00 t; Preeti CARTER [place], [place] Preeti CARTER Physi ci ans 2015-07-05 2015-07-05 [facility] [id number] Univers 08:30:00 08:30:00 t; Preeti CARTER [place], [place] Preeti CARTER Physi ci ans 2015-04-28 2015-04-29 Outpt Diag nullFlavo [facility] [id number] Memoria 15:30:00 04:59:00 Services r Outpatient 02 l Imaging - Randy n Gosia 2015-04-28 2015-04-28 Outpatient Lavern, 2.16.840. 2.16.840.1. [id number] 10:30:00 23:59:00 Andressa [id number]. [id number] 02 [place] 3.615.101 5.101 2011-09-02 2011-09-02 AUNDREA SULLIVAN [id number] Memoria 08:48:00 08:48:00 00 l Amador Results Test Description Test Time Test Comments Results Result Comments Source ECG 12 lead 2020-05-07 00:09:04 Test Item Value Reference Range Interpretation Comme nts Ventricular rate (test code = 253) Atrial rate (test code = 255) CT interval (test code = 266) QRSD interval (test code = 260) QT interval (test code = 264) QTC interval (test code = 265) P axis 1 (test code = 267) QRS axis 1 (test code = 268) T wave axis (test code = 270) EKG impression (test code = 273) Normal sinus rhythm-Prolonged QT-A bnormal ECG-In automated comparison with ECG of 20-DEC-2015 08:42,-Nonspecific T wave abnormality no longer evident in Lateral leads- [facility], (w Contrast, Strain and 3D if needed)2020-05-05 21:56:13 Test Item Value Reference Range Interpretation Comments AoV Area, Vmax (test 3.00 cm2 code = 9937681732) AoV Area, VTI (test 2.90 cm2 code = 7668085066) AoV Mean PG (test code mmHg = 6763174675) AoV Peak PG (test code mmHg = 4430430408) AoV Vmax (test code = 1.31 m/s 8107875919) AoV VTI (test code = 0.26 m 7897560717) IVS,d (test code = 1.03 cm 9882568814) IVS/LVPW,2D (test code = 1799853140) Left Atrium Dimension 4.40 cm Anterior (test code = 0208462868) LV,d (test code = 5.15 cm 4465095537) LV EF,2D (test code = 55.90 % 7420964353) LV,s (test code = 3.92 cm 5463608106) LVOT area (test code = 3.14 cm2 4117897818) LVOT Diam,S (test code 2.00 cm = 4602233587) LVOT Vmax (test code = 1.25 m/s 1474070888) LVOT VTI (test code = 0.24 m 7849831265) LVPWD,d (test code = 0.86 cm 8473116855) PV Pk Grad (test code = mmHg 3301156026) PV VMAX (test code = 0.90 m/s 8269738811) RVOT Vmax (test code = 0.78 m/s 5548967343) TR Vpeak (test code = 2.34 mm/s 4297881798) MV E A ratio (test code = 1288037006) TR pk grad (test code = mmHg 1299003762) MR Vmax (test code = 4.27 m/s 0771898344) MR peak grad (test code mmHg = 1472225393) E wave decelartion time msec (test code = 4643702503) MV Peak A Sam (test 0.87 m/s code = 0843272918) MV valve area p 1/2 3.17 cm2 method (test code = 8105433202) MV Peak E Sam (test 0.83 m/s code = 0744525938) MV stenosis pressure 69.31 ms 1/2 time (test code = 1697575672) LVOT stroke volume 0.75 cm3 (test code = 7416462944) AV LVOT peak gradient mmHg (test code = 1366279337) Ao Root,d,2D (test code 3.00 cm = 0352109277) LV SYS VOL (test code = 66.72 ml 6240474867) LV LICONA VOL (test code 126.64 ml = 3401678830) LV SV Teich 2D (test 59.92 ml code = 3646382475) LV Vol s Teich PSAX 66.72 ml (test code = 8031331038) RVOT pk grad (test code mmHg = 7557390959) AoV Vmn (test code = 1762969048) LV FS Teich 2D (test code = 4930462097) MV AE ratio (test code = 1052413684) LV FS Cube 2D (test code = 6155637311) LVOT Vmn (test code = 7586191042) Aov area Vmn (test code 2.80 cm2 = 2720416331) LVOT mean grad (test mmHg code = 2657769830) MAX Pred HR (test code = 5037224961) 85 of MPHR (test code = 3312014833) Ao d LA s ratio (test code = 5097893291) Calc MPHR (test code = bpm 2205592775) LV SV Cube 2D (test 76.35 ml code = 4265029902) LV vol d cube 2D (test 136.59 ml code = 1866533888) LV vol s cube 2D (test 60.24 ml code = 9733213511) MV Decel slope (test 3.45 m/s2 code = 8905118159) Pred Exer Dur R1 (test code = 3829063504) Pred METS R1 (test code = 8102897799) Velocity Ratio (V1/V2) 0.95 m/s (test code = 4689) EF (test code = 47.32 % 8102664073) E/A ratio (test code = 5957976628) LVOT VTI (CM) (test 24.00 cm code = 3155057109) MARIOLA (test code = MARIOLA) Normal left ventricular size and function with an EF~ 55% to 60%.Normal right ventricular size and function.Structurally normal cardiac valves.Mild mitral regurgitation. Left atrial enlargement. Normal pericardium with no effusion.Grade 1 diastolic dysfunction. [facility] Brain W Wo Filhhuyy4644-64-05 18:34:06EXAM: MRI BRAIN W WO CONTRAST CLINICAL HISTORY: Stroke follow up, Vision loss monocular, Left eye v ision loss TECHNIQUE: Multiplanar and multisequence MRI imaging of the brain was obtained with and without contrast. COMPARISON: CT/CTA brain, 05/04/2020 FINDINGS: No diffusion restriction to suggest acute infarct. Parenchymal volume is within normal limits. Minimal scattered white matter chronic small vessel ischemic changes. There is no abnormal parenchymal or leptomeningeal enhancement. No acuteintracranial hemorrhage, mass, hydrocephalus, or extra- axial fluid collection identified. Although this examination is not optimized for the sella, pituitary is grossly normal in appearance. Midline structures are maintained. The major flow voids in the skull base are identified. Orbits are unremarkable. Subcentimeter mucosal retention cyst or polyp is seen within the left sphenoid sinus. Remaining sinuses are clear. Mastoid air cells are normally pneumatized. IMPRESSION: No acute intracranial abnormality identified. There is no enhancing lesion in the brain. [id number] Interface, Radiology Results Incoming - 05/05/2020 1:37 PM CDT EXAM: MRI BRAIN W WO CONTRASTCLINICAL HISTORY: Stroke follow up, Vision loss monocular, Left eye vision lossTECHNIQUE: Multiplanar and multisequence MRI imaging of the brain was obtained with and without contrast.COMPARISON: CT/CTA brain, 05/04/2020FINDINGS:No diffusion restriction to suggest acute infarct.Parenchymal volume is within normal limits.Minimal scattered white matter chronic small vessel ischemic changes.There is no abnormal parenchymal or leptomeningeal enhancement. No acute intracranial hemorrhage, mass, hydrocephalus, or extra-axial fluid collection identified.Although this examination is not optimized for the sella, pituitary is grossly normal in appearance. Midline structures are maintained. The major flow voids in the skull base are identified. Orbits are unremarkable. Subc entimeter mucosal retention cyst or polyp is seen within the left sphenoid sinus. Remaining sinuses are clear. Mastoid air cells are normally pneumatized. IMPRESSION:No acute intracranial abnormality identified. There is no enhancing lesion in the brain.[id number] RibeurzyKAFF-SpK-3 (COVID-19) RNA [Presence] in Respiratory specimen by FRANCISCO with probe ucadeames8730-12-15 23:52:46 Test Item Value Reference Range Interpretation Comments SARS-CoV-2 (COVID-19) RNA Not detected Not-Detected [Presence] in Respiratory specimen by FRANCISCO with probe detection (test code = 60397-8) Urine xazkoap9598-05-93 20:46:09 Test Item Value Reference Range Interpretation Comments Urine culture (test SEE COMMENT Bacteriu summer screen code = 3279515) negative. [facility] Pyoukved7230-07-56 19:49:34EXAMINATION: CT ANGIOGRAM HEAD W WO CONTRAST CLINICAL HISTORY: STROKE COMPARISON: None. FINDINGS: Axial images were obtained throughout the the brain after intravenous contrast infusion with MPR and 3-D MIP image reconstructions. CT scans are performed using radiation dose reduction techniques. Technical factors are evaluated and adjusted to ensure appropriate moderation of exposure. Automated dose management technology is applied to adjust radiation exposure while achieving a highly diagnostic quality image. There is vertebrobasilar tortuosity without focal stenosis. The internal carotid arteries demonstrate minimal calcifications in the siphons without focal stenosis. There is no large vessel occlusion or aneurysm or AVM. There is patency of the dural venous sinuses and the cortical/brain. IMPRESSION: No evidence of large vessel occlusion or aneurysm. [id number]_PS01Hm Interface, Radiology Results 05/04/2020 2:52 PM CDTFormatting of this note might be different from the origi nal.EXAMINATION: CT ANGIOGRAM HEAD W WO CONTRASTCLINICAL HISTORY: STROKECOMPARISON: None.FINDINGS:Axial images were obtained throughout the the brain after intravenous contrast infusion with MPR and3-D MIP image reconstructions. CT scans are performed [...] cortical/brain.IMPRESSION:No evidence of large vessel occlusion or aneurysm.[id number]_PS01[facility] Wo Vipnxhtn4343-02-08 19:48:26EXAMINATION: CT ANGIOGRAM NECK W WO CONTRAST CLINICAL HISTORY: STROKE COMPARISON: None. FINDINGS: Axial images were obtained after intravenous contrast injection throughout the neck and superior m ediastinum with MPR and 3-D MIP image reformations CT scans are performed using radiation dose reduction techniques. Technical factors are evaluated and adjusted to ensure appropriate moderation of exposure. Automated dose management technology is applied to adjust radiation exposure while achieving a highly diagnostic quality image. The origins of the common carotid and vertebral arteries are patent. There are atheromatous proximal internal carotid artery calcifications without significant stenosis by NASCET criteria The cervical vertebral arteries are somewhat tortuous but patent and show no evidence of stenosis. There is no definite intimal dissection. IMPRESSION: Small atheromatous calcifications in the proximal internal carotid arteries without significant stenosis by NASCET criteria Vertebral artery patency. 1M2RAD_PS01Hm Interface, Radiology Results 05/04/2020 2:51 PM CDT EXAMINATION: CT ANGIOGRAM NECK W WO CONTRASTCLINICAL HISTORY: STROKECOMPARISON: None.FINDINGS:Axial images were obtained after intravenouscontrast injection throughout the neck and superior mediastinum with MPR and 3-D MIP image reformations CT scans are performed using radiation dose reduction techniques. Technical factors are evaluatedand adjusted to ensure appropriate moderation of exposure. Automated dose management technology is applied to adjust radiation exposure while achieving a highly diagnostic quality image.The origins of the common carotid and vertebral arteries are patent.There are atheromatous proximal internal carotidartery calcifications without significant stenosis by NASCET criteriaThe cervical vertebral arteriesare somewhat tortuous but patent and show no evidence of stenosis.There is no definite intimal dissection.IMPRESSION:Small atheromatous calcifications in the proximal internal carotid arteries without s ignificant stenosis by NASCET criteriaVertebral artery patency.1M2RAD_PS01 [facility] Stroke Brain Wo Ejisrklb5704-06-25 19:42:38EXAMINATION: CT STROKE BRAIN WO CONTRAST CLINICAL HISTORY: STROKE, Sudden vision loss in the left eye COMPARISON: None. TECHNIQUE: Noncontrast head CT performed using radiation dose reduction techniques. Technical factors are evaluated and adjusted to ensure appropriate moderation of exposure. Automated dose management technology is applied to adjust radiation exposure while achieving a diagnostic quality image. FINDINGS: No acute intra or extra-axial hemorrhage identified. The cavanaugh-white matter differentiation is preserved. The basal ganglia, thalami, midbrain, cee and cervicomedullary junction are unremarkable. No mass, mass effect, or midline shift is seen. Ventricles and sulci are normal in appearance for patient's age. Basal cisterns are patent. Calvarium is intact. The orbital contents are symmetric and normal in appearance. The visualized paranasal sinuses are unremarkable. The mastoid air cells and middle ear cavities are clear. Scalp soft tissues are unremarkable. IMPRESSION:No acute intracranial abnormality identified. These findings were discussed with ANA MARIA Means at 1441hours on 05/04/2020 who verbalized understanding. [facility]- [id number] Interface, Radiology Results Incoming - 05/04/2020 2:45 PM CDT EXAMINATION: CT STROKE BRAIN WO CONTRASTCLINICAL HISTORY: STROKE, Sudden vision loss in the left eyeCOMPARISON: None.TECHNIQUE: Noncontrast head CT performed using radiation dose reduction techniques. Technical factors are evaluated and adjusted to ensure appropriate moderation of exposure. Automated dose m anagement technology is applied to adjust radiation exposure while achieving a diagnostic quality image. FINDINGS:No acute intra or extra-axial hemorrhage identified. The cavanaugh-white matter differentiation is preserved. The basal ganglia, thalami, midbrain, cee and cervicomedullary junction are unremarkable. No mass, mass effect, or midline shift is seen. Ventricles and sulci are normal in appearance for patient's age. Basal cisterns are patent. Calvarium is intact.The orbital contents are symmetric and normal in appearance. The visualized paranasal sinuses are unremarkable. The mastoid air cellsand middle ear cavities are clear. Scalp soft tissues are unremarkable.IMPRESSION:No acute intracranial abnormality identified.These findings were discussed with ANA MARIA Means at 1441 hours on 05/04/2020 who verbalized understanding.[id number] [facility]] CULTURE, URINE, [id number] 14:25:01 Test Item Value Reference Range Interpretation Comments ORGANISM (test Escherichia coliEnterococcus code = 699-9) Species FINAL REPORT 50,000 - 100,000 CFU/mL (test code = Escherichia coli 10,000 - FINAL REPORT) 50,000 CFU/mL EnterococcusSpecies 10,000 - 50,000 CFU/mL Skin Nina [facility][H] [id number] 14:25:01 Test Item Value Reference Range Interpretation Comments ORGANISM (test code = Enterococcus 699-9) Species Ampicillin (test code - S = Ampicillin) Levofloxacin (test - S code = Levofloxacin) Nitrofurantoin (test - S code = Nitrofurantoin) Tetracycline (test - S code = Tetracycline) Vancomycin (test code SEE NOTES S S= Latoya ceptible, = Vancomycin) R= Resistant, I= Intermediate, N/A= Not Applicable [facility][H] [id number] 14:25:01 Test Item Value Reference Range Interpretation [...] Tetracycline (test code = - S Tetracycline) [facility][O] Urine Dipstick (In Office)2017-08-27 15:29:00 Test Item Value Reference Range Interpretation Comments LEUKOCYTES (test code = LEUKOCYTES) 2+ A NITRITE; Normal (test code = 34294-6) neg N UROBILINOGEN; Normal (test code = 0.2 N 35259-3) PROTEIN; Normal (test code = 35950-2) neg N pH (test code = pH) 6.5 N URINE BLOOD; Abnormal (test code = trace A 60391-8) SPECIFIC GRAVITY; Normal (test code = 1.020 N 2965-2) KETONES; Normal (test code = 03059-1) neg N BILIRUBIN; Normal (test code = 11872-3) neg N GLUCOSE; Normal (test code = 1547-9) neg N [facility]] CULTURE, URINE, [id number] 15:37:01 Test Item Value Reference Range Interpretation Comments ORGANISM (test code = Escherichia coli 699-9) FINAL REPORT (test 50,000 - 100,000 CFU/mL code = FINAL REPORT) Escherichia coli . 50,000 - 100,000 CFU/mL Skin Nina [facility][H] [id number] 15:37:01 Test Item Value Reference Range Interpretation [...] Resi stant, I= Intermediate, N/A= Not Applicable [facility][O] Urine Dipstick (In Office)2017-08-21 12:24:00 Test Item Value Reference Range Interpretation Comments LEUKOCYTES (test code = LEUKOCYTES) 2+ A NITRITE; Normal (test code = 30386-6) NEG N UROBILINOGEN; Normal (test code = 0.2 N 38506-2) PROTEIN; Abnormal (test code = 86045-6) 30 MG A pH (test code = pH) 5.5 N URINE BLOOD; Abnormal (test code = 2+ A 30295-5) SPECIFIC GRAVITY; Normal (test code = 1.030 N 2965-2) KETONES; Normal (test code = 46424-1) NEG N BILIRUBIN; Normal (test code = 46574-8) NEG N GLUCOSE; Normal (test code = 1547-9) NEG N [facility][O] Urine Dipstick (In Office)2017-06-09 10:06:00 Test Item Value Reference Range Interpretation Comments LEUKOCYTES (test code = LEUKOCYTES) 2+ A NITRITE; Normal (test code = 23067-4) NEG N UROBILINOGEN; Normal (test code = 0.2 N 38172-1) PROTEIN; Normal (test code = 86583-0) NEG N pH (test code = pH) 7.0 N URINE BLOOD; Abnormal (test code = 2+ A 83747-7) SPECIFIC GRAVITY; Normal (test code = 1.010 N 2965-2) KETONES; Normal (test code = 41436-8) NEG N BILIRUBIN; Normal (test code = NEG N 59570-6) GLUCOSE; Abnormal (test code = 1547-9) 250 MG A [facility]] BV/ VAGINITIS PANEL DNA PROBE AFFIRM 2017-06-09 09:20:01 Test Item Value Reference Range Interpretation Comments Trichomonas vaginalis DNA (test code Negative Negative = 41818-9) Gardnerella vaginalis DNA; Abnormal Positive Negative A (test code = 6410-5) Grace sp. DNA; Abnormal (test code Positive Negative A = 18362-2) [facility]] CULTURE, URINE, [id number] 09:20:01 Test Item Value Reference Range Interpretation Comments ORGANISM (test code = Escherichia coli 699-9) FINAL REPORT (test >100,000 CFU/mL code = FINAL REPORT) Escherichia coli 10,000 - 50,000 CFU/mL Skin Nina [facility][] [id number] 09:20:01 Test Item Value Reference Range Interpretation Comments ORGANISM (test code Escherichia coli = 699-9) Ciprofloxacin (test .75 S code = Ciprofloxacin) Levofloxacin (test 1.5 S code = Levofloxacin) Trimethoprim/Sulfame 32 R thoxazole (test code = Trimethoprim/Sulfame thoxazole) Ceftriaxone (test .094 S S= Suscept ible, code = Ceftriaxone) R= Resis tant, I= Intermediate, N/A= Not Applicable [facility] [id number] 20:20:000[facility] BODY VOVLOY2703-44-14 20:20:000[facility] EZDIFD8740-53-28 20:20:00 Yellow (04/01/16 2:20 PM)[facility] YXVFQB0404-27-59 20:20:00Other (04/01/16 2:20 PM)[facility] FOQHDQ5322-40-36 20:20:00Slight Cloudy (04/01/16 2:20 PM)[facility] ZNAUMV1299-89-85 20:20:334901Xnlcldrg HermannBODY XHVTIJ0638-34-67 20:20:68441Nqibmwbk HermannBODY FLSLBW1405-75-12 20:20:0044[facility] GJZHOK1825-79-70 20:20:0056[facility] UBIHMDLKWF3599-25-05 19:10:006.1[facility] FmyocmuMXEGQZJNLY3728-56-89 19:10:007.9 [facility] WflxctbJPPSGLFGIO2299-73-99 19:10:14406Augoieex HermannHEMATOLOGY 2016-04-01 19:10:00 Test Item Value Reference Range Interpretation Comments MCH (test code = MCH) 28.5 pg 27.0-31.0 [facility] BbrhqqxOVSAOYXSRH5820-63-18 19:10:0014.8[facility]annHEMATOLOGY 2016-04-01 19:10:0033.2[facility] WfglyfcIJEBTUKOMH3953-20-46 19:10:0030.8[facility] MqodwdpJZVTMRFZJX7020-98-73 19:10:003.59[facility] ZxllabyUUWZJQHZYH9291-00-42 19:10:0010.2[facility] TrflcewQVMIUJDANX2737-44-39 19:10:0085.9[facility] DIPDWLZEQE2109-81-94 19:10:000.1[facility] GgxseasZSHVFCMDMC0733-37-09 19:10:000.4 [facility] QkxutocOXHIJWHXYI9664-54-85 19:10:004.0[facility]annHEMATOLOGY 2016-04-01 19:10:001.5[facility] GszocwdOLWDTSFEUT7034-39-88 19:10:000.0[facility] DoologvRHRKKKFOVU4589-84-23 19:10:0025.0[facility] ZllvogzRCWVEFLTWT2586-56-99 19:10:006.9[facility] LmeyaqkKEVFAHCBFN9546-71-45 19:10:0065.5[facility] S[facility]igent EFBAAQAPHJ3311-37-23 19:10:000.6[facility] VworziiXYKDOVGNTN6017-58-68 19:10:002.0 [facility] FwfgsjkJNKOKGAXMF7883-49-84 19:07:0084[facility] HermannCHEM PANEL 2016-04-01 18:33:001.3[facility] HermannCHEM IHRVR5131-50-21 18:33:0091[facility] HermannCHEM GHUMP1197-21-65 18:33:0019[facility] HermannCHEM ASGHQ1118-01-34 18:33:000.6[facility] HermannCHEM SQFBP1853-39-23 18:33:004.7[facility] HermannCHEM GOKKV7298-90-95 18:33:0012.0[facility]annCHEM AXJGJ2870-25-72 18:33:000.2 [facility] HermannCHEM VASFT7865-03-53 18:33:60167Tdngwomr HermannCHEM PANEL 2016-04-01 18:33:0030[facility] HermannCHEM HJYFU3827-60-51 18:33:0099[facility] HermannCHEM HYTDW2700-36-26 18:33:0014Mem[facility] HermannCHEM MYMXI2246-62-43 18:33:93213Xagmeajd HermannCHEM FJGHD3578-85-45 18:33:000.74[facility] HermannCHEM DPFAV6753-37-78 18:33:005.0[facility] HermannCHEM VZPUS9342-05-16 18:33:83224 [facility]annCHEM TQVCN7205-49-87 18:33:007.7[facility] HermannCHEM PANEL 2016-04-01 18:33:008.7[facility] HermannCHEM VZSWF9385-54-09 18:33:0021[facility] HermannCHEM IBYEU4791-94-36 18:33:003.0[facility] HermannCHEM DMUHK4516-07-10 18:33:0027[facility] QcrqrjyAZOHFTFINJ6605-94-98 18:33:0044.4[facility] HermannCHEM FIJKV9541-99-05 14:38:0079[facility] HermannCHEM BMJBQ4480-61-52 14:38:66590 [facility]annCHEM ZMHGF0474-50-42 14:38:73690Arhheudq HermannCHEM PANEL 2015-08-03 14:38:004.6[facility] HermannCHEM SIZAZ1050-87-49 14:38:009.4[facility] HermannCHEM FWQUJ9439-40-71 14:38:0031[facility] HermannCHEM EOCBZ1529-95-14 14:38:17592Raozkdvy HermannCHEM NXMNY8699-11-25 14:38:000.84[facility] HermannCHEM KIPHL8459-54-36 14:38:0017[facility] HermannCHEM LWHDK5466-20-80 14:38:0013.6 [facility] SvjstfoQRXMGBTLWU9302-97-69 14:38:00 Test Item Value Reference Range Interpretation Comments MCH (test code = MCH) 28.8 pg 27.0-31.0 [facility] RgndodrXFEKGVTEEE4055-29-19 14:38:0012.1[facility] HermannHEMATOLOGY 2015-08-03 14:38:004.20[facility] VjnejcdYVCDIWLNNU9604-30-26 14:38:0089.2[facility] LpzkmgdIUKWRBBRKY0971-48-96 14:38:0037.5[facility] ZtjwnsaSQATEYVNGV0165-29-06 14:38:007.4[facility] CrvqsdaDICGXOROYJ3527-85-68 14:38:0032.3[facility] JXIGAHJPGZ6639-73-36 14:38:0014.3[facility] HavnuanAMCEZKRXER8343-73-60 14:38:00 9.3[facility] PofxwkgJSOHOFTTLJ4994-63-13 14:38:15999Pnzhtzar HermannHEMATOLOGY 2015-08-03 14:38:000.0[facility] RgnxusgJQZJCQYVWL1729-65-43 14:38:0061.4[facility] KxswmgtKXNSHUMOHW1872-21-74 14:38:0030.9[facility] FjjdhtcQYTQXNCKDT2701-86-35 14:38:002.3[facility] BvdkuqiWPVFVWAVTH9459-47-69 14:38:000.4[facility] WXOGATWRNZ6669-95-88 14:38:004.5[facility] BnomtcqTDKJRQPVTS6127-57-55 14:38:000.5 [facility] IphvaywPYVQLJSWKJ7814-47-79 14:38:005.8[facility] HermannHEMATOLOGY 2015-08-03 14:38:001.4[facility] UdhokenHDBCHUXKQH5146-83-11 14:38:000.1[facility] ShqedcfKJCWMRNEQR4491-75-23 14:38:00Negative *NA*(08/03/15 9:38 AM)[facility] RruwmwzSSKIDYEOLZ1107-66-32 14:38:00Negative *NA*(08/03/15 9:38 AM)[facility]
--- NOTE | 2020-10-14 17:04 | RAD REPORT ---
EXAM DESCRIPTION: RAD - Shoulder Left 2 View - 10/14/2020 4:38 pm CLINICAL HISTORY: Left shoulder pain FINDINGS: No fracture or dislocation is seen. Moderate osteoarthritis AC joint. Subchondral cysts humeral head. Mild glenohumeral joint narrowing.
[2020-10-14 18:27] LABS: Hematocrit 42.5 % (36.0-45.0); Lymphocytes % 26.3 % (15.3-44.8); MPV 9.2 fL (7.6-11.3)
[2020-10-14] MEDS ORDERED: ONDANSETRON 4 MG/2 ML VIAL ONE (18:36)
[2020-10-14] MEDS ORDERED: MORPHINE 4 MG/ML SYR ONE (18:36)
[2020-10-14] MEDS ORDERED: DIAZEPAM 5 MG TABLET ONE (18:36)
[2020-10-14] MEDS ORDERED: NA CHLORIDE 0.9% 1,000 ML ONE (18:37)
[2020-10-14] MEDS ORDERED: KETOROLAC 30 MG/ML INJ ONE (18:37)
[2020-10-14 18:43] LABS: Albumin 3.9 g/dL (3.4-5.0); Bilirubin Total 0.5 mg/dL (0.2-1.0); Potassium 4.1 mmol/L (3.5-5.1); Protein, Total 8.3 g/dL (6.4-8.2)
--- NOTE | 2020-10-14 19:07 | RAD REPORT ---
EXAM DESCRIPTION: CT - C Spine Wo Con - 10/14/2020 6:29 pm CLINICAL HISTORY: Left radiculopathy COMPARISON: May 2020 TECHNIQUE: Computed axial tomography of the cervical spine were obtained with sagittal and coronal r econstruction images generated and reviewed. All CT scans are performed using dose optimization technique as appropriate and may include automated exposure control or mA/KV adjustment according to patient size. FINDINGS: A cervical fracture is not seen. No dislocation. Mild spondylosis involves the cervical spine. No high-grade central/foraminal stenosis is seen. IMPRESSION: A cervical fracture is not seen. No high-grade central/foraminal stenosis seen If the patient continues have symptoms to suggest spinal cord/spinal canal pathology then MRI would b e recommended.
--- NOTE | 2020-10-14 19:12 | EDPHYS ---
Physician Documentation [facility] Name: Bob Armstrong Age: 60 yrs Sex: Female : 1960 Arrival Date: 10/14/2020 Time: 13:10 Bed 12 Private MD: [facility] ED Physician Braulio Tellez HPI: 10/14 18:52 This 60 yrs old Female presents to ER via Ambulatory with complaints of estefania Shoulder Pain, Neck Pain, >24Hrs Old, Arm Pain. 18:52 The patient or guardian complains of decreased range of motion, pain. left shoulder. estefania Context: The problem was sustained at home. Onset: The symptoms/episode began/occurred this morning. Modifying factors: the symptoms are alleviated by nothing. The symptoms are aggravated by movement. Associated signs and symptoms: Pertinent positives: neck pain. Severity of symptoms: At their worst the symptoms were moderate, in the emergency department the symptoms are unchanged. Treatment prior to arrival includes: no previous treatment. The patient has not experienced similar symptoms in the past. Historical: - Allergies: 14:06 Lyrica; aa5 14:06 steroids; aa5 14:06 zpack; aa5 - PMHx: 14:06 Depression; Diabetes - NIDDM; Hyperlipidemia; Hypertension; insomnia; osteoarthritis; aa5 Rheumatoid Arthritis; Anxiety; Sjorgens Syndrome; Hypercholesterolemia; Neuropathy; Sleep apnea; TIA; Trigeminal Neuralgia; Arthritis; - Immunization history:: Client reports receiving the James \T\ James single-dose vaccine. - Social history:: Smoking status: Patient denies any tobacco usage or history of. - Family history:: not pertinent. ROS: 18:52 Constitutional: Negative for fever, chills, and weight loss, Eyes: Negative for injury, estefania pain, redness, and discharge, ENT: Negative for injury, pain, and discharge, Neck: Negative for injury, pain, and swelling, Cardiovascular: Negative for chest pain, palpitations, and edema, Respiratory: Negative for shortness of breath, cough, wheezing, and pleuritic chest pain, Abdomen/GI: Negative for abdominal pain, nausea, vomiting, diarrhea, and constipation, Back: Negative for injury and pain, : Negative for injury, bleeding, discharge, and swelling, Skin: Negative for injury, rash, and discoloration, Neuro: Negative for headache, weakness, numbness, tingling, and seizure, Psych: Negative for depression, anxiety, suicide ideation, homicidal ideation, and hallucinations, Allergy/Immunology: Negative for hives, rash, and allergies, Endocrine: Negative for neck swelling, polydipsia, polyuria, polyphagia, and marked weight changes, Hematologic/Lymphatic: Negative for swollen nodes, abnormal bleeding, and unusual bruising. 18:52 MS/extremity: Positive for decreased range of motion, pain, tenderness, of the anterior aspect of left shoulder and posterior aspect of left shoulder. Exam: 18:52 Constitutional: This is a well developed, well nourished patient who is awake, alert, estefania and in no acute distress. Head/Face: Normocephalic, atraumatic. Eyes: Pupils equal round and reactive to light, extra-ocular motions intact. Lids and lashes normal. Conjunctiva and sclera are non-icteric and not injected. Cornea within normal limits. Periorbital areas with no swelling, redness, or edema. ENT: Nares patent. No nasal discharge, no septal abnormalities noted. Tympanic membranes are normal and external auditory canals are clear. Oropharynx with no redness, swelling, or masses, exudates, or evidence of obstruction, uvula midline. Mucous membranes moist. Chest/axilla: Normal chest wall appearance and motion. Nontender with no deformity. No lesions are appreciated. Cardiovascular: Regular rate and rhythm with a normal S1 and S2. No gallops, murmurs, or rubs. Normal PMI, no JVD. No pulse deficits. Respiratory: Lungs have equal breath sounds bilaterally, clear to auscultation and percussion. No rales, rhonchi or wheezes noted. No increased work of breathing, no retractions or nasal flaring. Abdomen/GI: Soft, non-tender, with normal bowel sounds. No distension or tympany. No guarding or rebound. No evidence of tenderness throughout. Back: No spinal tenderness. No costovertebral tenderness. Full range of motion. Female : Normal external genitalia. Skin: Warm, dry with normal turgor. Normal color with no rashes, no lesions, and no evidence of cellulitis. Neuro: Awake and alert, GCS 15, oriented to person, place, time, and situation. Cranial nerves II-XII grossly intact. Motor strength 5/5 in all extremities. Sensory grossly intact. Cerebellar exam normal. Normal gait. Psych: Awake, alert, with orientation to person, place and time. Behavior, mood, and affect are within normal limits. 18:52 Neck: C-spine: pain to rom, Trachea: is midline with no obvious abnormalities, ROM/movement: pain, limited range of motion. 19:11 ECG was reviewed by the Attending Physician. [facility] Vital Signs: 14:00 BP 136 / 80; Pulse 75; Resp 18 S; Temp 98.1(TE); Pulse Ox 99% on R/A; Weight 114.76 kg aa5 (R); Height 5 ft. 11 in. (180.34 cm) (R); Pain 9/10; 18:50 BP 132 / 65; Pulse 61; Resp 20; Pulse Ox 98% on R/A; kg 14:00 Body Mass Index 35.29 (114.76 kg, 180.34 cm) aa5 MDM: 16:06 Patient medically screened. [facility] 18:52 Differential diagnosis: DJD, tendonitis. Data reviewed: vital signs, nurses notes, lab [facility] test result(s), EKG, radiologic studies, CT scan. Data interpreted: child monitor: rate is 75 beats/min, rhythm is regular, Pulse oximetry: on room air is 99 %. Test interpretation: by ED physician or midlevel provider: ECG, plain radiologic studies. Counseling: I had a detailed discussion with the patient and/or guardian regarding: the historical points, exam findings, and any diagnostic results supporting the discharge/admit diagnosis, lab results, radiology results, the need for outpatient follow up, for definitive care, a family practitioner, a neurologist, a orthopedic surgeon. 10/14 16:09 Order name: CBC with Diff; Complete Time: 18:51 [facility] 10/14 16:09 Order name: Comprehensive Metabolic Panel; Complete Time: 18:51 [facility] 10/14 16:09 Order name: Shoulder Left (2 View) XRAY; Complete Time: 17:47 [facility] 10/14 17:47 Order name: CT C Spine; Complete Time: 19:10 [facility] 10/14 20:52 Order name: Glucose, Ancillary Testing ED[facility] 10/14 16:09 Order name: EKG; Complete Time: 16:10 [facility] 10/14 16:09 Order name: EKG - Nurse/Tech; Complete Time: 19:08 [facility] 10/14 18:58 Order name: Shabbir; Complete Time: 19:28 estefania EC:11 Rate is 62 beats/min. Rhythm is regular. QRS [place] is Normal. AL interval is normal. QRS estefania interval is normal. QT interval is normal. No Q waves. T waves are Normal. No ST changes noted. Clinical impression: Normal ECG and No evidence of ischemia. Interpreted by me. Reviewed by me. Administered Medications: 18:12 Drug: Valium (diazepam) 5 mg Route: PO; kg 18:56 Follow up: Response: No adverse reaction kg 18:15 Drug: NS 0.9% 1000 ml Route: IV; Rate: 1 bolus; Site: right antecubital; kg 19:22 Follow up: Response: No adverse reaction; IV Status: Completed infusion; IV Intake: kg 1000ml 18:15 Drug: morphine 4 mg Route: IVP; Site: right antecubital; kg 19:22 Follow up: Response: No adverse reaction kg 18:15 Drug: Zofran (Ondansetron) 4 mg Route: IVP; Site: right antecubital; kg 19:22 Follow up: Response: No adverse reaction kg 18:15 Drug: Ketorolac 30 mg Route: IVP; Site: right antecubital; kg 19:22 Follow up: Response: No adverse reaction kg 19:28 Drug: Insulin Regular Human 8 units {Co-Signature: moy (Macy Leos RN).} Route: IVP; lp1 Site: right antecubital; 21:05 Follow up: Response: Blood sugar is lowered lp1 Disposition Summary: 10/14/20 19:11 Discharge Ordered Location: Home estefania Problem: new estefania Symptoms: have improved estefania Condition: Stable estefania Diagnosis - Pain in left shoulder estefania - Strain of muscle, fascia and tendon at neck level, initial encounter estefania - Type 2 diabetes mellitus with hyperglycemia estefania - Cervical disc disorder with radiculopathy, unspecified cervical region estefania Followup: estefania - With: - When: 2 - 3 days - Reason: Recheck today's complaints, Continuance of care, Re-evaluation by your physician Followup: estefania - With: - When: 2 - 3 days - Reason: Recheck today's complaints, Continuance of care, Re-evaluation by your physician Followup: estefania - With: - When: 2 - 3 days - Reason: Recheck today's complaints, Continuance of care, Re-evaluation by your physician Discharge Instructions: - Discharge Summary Sheet estefania - Joint Pain estefania - Arthritis estefania - Cervical Radiculopathy estefania - Type 2 Diabetes Mellitus, Diagnosis, Adult estefania - Hyperglycemia estefania - Musculoskeletal Pain estefania - Shoulder Pain estefania - Shoulder Pain, [id number] estefania - Blood Glucose Monitoring, Adult estefania - Arthritis, [id number] estefania - Hyperglycemia, [id number] estefania - Cervical Radiculopathy, [id number]-uv-[id number] [facility] Forms: - Medication Reconciliation Form [facility] - Thank You Letter [facility] - Antibiotic Education [facility] - Prescription Opioid Use [facility] Prescriptions: - Ibuprofen 600 mg Oral Tablet - take 1 tablet by ORAL route every 6 hours As needed take with food; 30 tablet; [facility] Refills: 0, Product Selection Permitted - Valium 5 mg Oral Tablet - take 1 tablet by ORAL route every 8 hours As needed; 20 tablet; Refills: 0, [facility] Product Selection Permitted - Tylenol-Codeine #3 300 mg-30 mg Oral - take 2 tablet by ORAL route every 4-6 hours; 24 tablet; Refills: 0, Product [facility] Selection Permitted Signatures: Dispatcher [employer] EDBraulio Zuleta MD MD cha Calderon, Audri RN RN aa5 Merary Leal RN RN lp1 Verenice Aguilar RN RN kg Macy Leos RN bb
--- NOTE | 2020-10-14 19:12 | ER ---
Nurse's Notes [facility] Name: Bob Armstrong Age: 60 yrs Sex: Female : 1960 Arrival Date: 10/14/2020 Time: 13:10 Bed 12 Private MD: Luciano Travis Diagnosis: Pain in left shoulder;Strain of muscle, fascia and tendon at neck level, initial encounter;Type 2 diabetes mellitus with hyperglycemia;Cervical disc disorder with radiculopathy, unspecified cervical region Presentation: 10/14 14:00 Chief complaint: Patient states: "I was diagnosed with a frozen shoulder back in aa5 March and I woke up around 3am and the pain is so horrible". Pt c/o left shoulder pain. 14:00 Coronavirus screen: At this time, the client does not indicate any symptoms associated aa5 with coronavirus-19. Ebola Screen: Patient negative for fever greater than or equal to 101.5 degrees Fahrenheit, and additional compatible Ebola Virus Disease symptoms. Initial Sepsis Screen: Does the patient meet any 2 criteria? No. Patient's initial sepsis screen is negative. Does the patient have a suspected source of infection? No. Patient's initial sepsis screen is negative. Risk Assessment: Do you want to hurt yourself or someone else? Patient reports no desire to harm self or others. Onset of symptoms was October 2020. 14:00 Method Of Arrival: Ambulatory aa5 14:00 Acuity: JERRY 4 aa5 16:13 Acuity: JERRY 3 iw Triage Assessment: 19:24 General: Appears in no apparent distress. Behavior is calm, cooperative, appropriate kg for age, quiet. Pain: Complains of pain in Left shoulder. Historical: - Allergies: 14:06 Lyrica; aa5 14:06 steroids; aa5 14:06 zpack; aa5 - PMHx: 14:06 Depression; Diabetes - NIDDM; Hyperlipidemia; Hypertension; insomnia; osteoarthritis; aa5 Rheumatoid Arthritis; Anxiety; Sjorgens Syndrome; Hypercholesterolemia; Neuropathy; Sleep apnea; TIA; Trigeminal Neuralgia; Arthritis; - Immunization history:: Client reports receiving the James \\T\\ James single-dose vaccine. - Social history:: Smoking status: Patient denies any tobacco usage or history of. - Family history:: not pertinent. Screenin:23 Abuse screen: Denies threats or abuse. Denies injuries from another. Nutritional kg screening: No deficits noted. Tuberculosis screening: No symptoms or risk factors identified. Fall Risk None identified. Assessment: 19:24 Neuro: Level of Consciousness is awake, alert, obeys commands, Oriented to person, kg place, time, situation, Appropriate for age. 19:29 Reassessment: Patient appears in no apparent distress at this time. Reports continued lp1 pain to left shoulder; reports has appt with PCP set for 10/26/20. 21:05 Reassessment: Patient appears in no apparent distress at this time. Patient is alert, lp1 oriented x 3, equal unlabored respirations, skin warm/dry/pink. Reports pain to left shoulder, content with prescriptions during discharge instructions. Vital Signs: 14:00 BP 136 / 80; Pulse 75; Resp 18 S; Temp 98.1(TE); Pulse Ox 99% on R/A; Weight 114.76 kg aa5 (R); Height 5 ft. 11 in. (180.34 cm) (R); Pain 9/10; 18:50 BP 132 / 65; Pulse 61; Resp 20; Pulse Ox 98% on R/A; kg 14:00 Body Mass Index 35.29 (114.76 kg, 180.34 cm) aa5 ED Course: 13:10 Patient arrived in ED. as 13:10 Luciano Travis DO is Private Physician. as 14:06 Triage completed. aa5 14:09 Arm band placed on. aa5 16:06 Braulio Tellez MD is Attending Physician. estefania 16:38 Shoulder Left (2 View) XRAY In Process Unspecified. EDMS 16:38 Verenice Aguilar, DANTE is Primary Nurse. kg 17:00 Inserted saline lock: 20 gauge in right antecubital area, using aseptic technique. kg Blood collected. 18:29 CT C Spine In Process Unspecified. EDMS 19:11 Luciano Travis DO is Referral Physician. estefania 19:11 Erik Romero MD is Referral Physician. estefania 19:11 Ruben Menard MD is Referral Physician. estefania 19:23 Patient has correct armband on for positive identification. kg 19:23 No provider procedures requiring assistance completed. kg 21:05 IV discontinued, No redness/swelling at site. Pressure dressing applied. lp1 Administered Medications: 18:12 Drug: Valium (diazepam) 5 mg Route: PO; kg 18:56 Follow up: Response: No adverse reaction kg 18:15 Drug: NS 0.9% 1000 ml Route: IV; Rate: 1 bolus; Site: right antecubital; kg 19:22 Follow up: Response: No adverse reaction; IV Status: Completed infusion; IV Intake: kg 1000ml 18:15 Drug: morphine 4 mg Route: IVP; Site: right antecubital; kg 19:22 Follow up: Response: No adverse reaction kg 18:15 Drug: Zofran (Ondansetron) 4 mg Route: IVP; Site: right antecubital; kg 19:22 Follow up: Response: No adverse reaction kg 18:15 Drug: Ketorolac 30 mg Route: IVP; Site: right antecubital; kg 19:22 Follow up: Response: No adverse reaction kg 19:28 Drug: Insulin Regular Human 8 units {Co-Signature: moy (Macy Leos RN).} Route: IVP; lp1 Site: right antecubital; 21:05 Follow up: Response: Blood sugar is lowered lp1 Intake: 19:22 IV: 1000ml; Total: 1000ml. kg Outcome: 19:11 Discharge ordered by . estefania 21:05 Discharged to home ambulatory, with friend. 1 21:05 Condition: good 21:05 Discharge instructions given to patient, Instructed on discharge instructions, follow up and referral plans. medication usage, Demonstrated understanding of instructions, follow-up care, medications, Prescriptions given X 3. 21:06 Patient left the ED. lp1 Signatures: Dispatcher [employer] Braulio Munguia MD MD cha Martinez, Amelia as Williams, Irene RN RN Maryanne Llanes RN RN aa5 Merary Leal RN RN lp1 Verenice Aguilar RN RN kg Macy winter
[2020-10-14] MEDS ORDERED: INSULIN -REGULAR HUMAN 50 UNIT/0.5 ML ML ONE (19:46)
[2020-10-14 21:27] VITALS: TEMP 98.1
[2020-10-14 21:28] VITALS: BP 132/65; O2SAT 98
--- NOTE | 2020-10-16 16:59 | EKG ---
Test Date: 2020-10-14 Test Time: 19:05:36 Central Supply Nurse: MARTIN MEASUREMENT RESULTS: Intervals: Rate: 62 NV: 172 QRSD: 90 QT: 436 QTc: 442 [place]: P: 57 NV: 172 QRS: 48 T: 47 INTERPRETIVE STATEMENTS: Normal sinus rhythm Normal ECG Compared to ECG 05/01/2020 12:10:34 T-wave abnormality no longer present Prolonged QT interval no longer present Electronically Signed On 10-16-20 16:56:16 CDT by Anival Hargrove
== END 2020-10-14 21:06 | disposition home or self-care (01) ==
LOC: ER 13:06
DX: S16.1XXA Strain of muscle, fascia and tendon at neck level, initial encounter (principal); E11.65 Type 2 diabetes mellitus with hyperglycemia; M50.10 Cervical disc disorder with radiculopathy, unspecified cervical region; I10 Essential (primary) hypertension; Z88.1 Allergy status to other antibiotic agents; Z88.8 Allergy status to other drugs, medicaments and biological substances
CPT/HCPCS: 96361; 93005; 85025; 36415; 82947; 80053; 72125; 73030; 96375; 96374; 99284; J7030; J2405

== ENCOUNTER 2020-12-04 14:06 | Emergency (ER) | payer OTHER ==
[2020-12-04 15:48] LABS: Urine Blood Negative (Negative); Urine Glucose Negative (Negative); Urine Protein Negative (Negative)
[2020-12-04 16:00] LABS: Absolute Lymphocytes (CBC) 2.4 K/uL (0.7-4.9); Basophils % 0.7 % (0-1.3); Hematocrit 41.1 % (36.0-45.0); Lymphocytes % 26.2 % (15.3-44.8); MPV 8.5 fL (7.6-11.3); RBC Red Blood Cell Count 4.96 M/uL (3.86-4.86)
[2020-12-04 16:02] LABS: Protime INR 1.12
[2020-12-04 16:09] LABS: Barbiturates NEGATIVE (NEGATIVE); Benzodiazepines POSITIVE (NEGATIVE); Cocaine NEGATIVE (NEGATIVE); METHAMPHETAM NEGATIVE (NEGATIVE); Methadone NEGATIVE (NEGATIVE); Opiates NEGATIVE (NEGATIVE); Phencyclidine NEGATIVE (NEGATIVE); THC Cannibis NEGATIVE (NEGATIVE)
[2020-12-04 16:11] LABS: ALT/SGPT 22 U/L (12-78); AST/SGOT 15 U/L (15-37); Albumin 3.5 g/dL (3.4-5.0); Alkaline Phosphatase 118 U/L (45-117); BUN Blood Urea Nitrogen 11 mg/dL (7-18); Bicarbonate 28 mmol/L (21-32); Bilirubin Direct 0.1 mg/dL (0-0.2); Bilirubin Total 0.4 mg/dL (0.2-1.0); Glucose Level 393 mg/dL (74-106); Potassium 3.8 mmol/L (3.5-5.1); Protein, Total 8.3 g/dL (6.4-8.2); Sodium Level 135 mmol/L (136-145)
[2020-12-04 16:23] LABS: Urine Blood 3+ (Negative); Urine Glucose 2+ (Negative); Urine Protein Negative (Negative); Urine Specific Gravity <=1.005 (1.005-1.030); Urine pH 5.5 (5.0-7.0)
[2020-12-04] MEDS ORDERED: IBUPROFEN 200 MG TAB PO ONE (17:53)
[2020-12-04] MEDS ORDERED: IBUPROFEN 400 MG TAB ONE (17:53)
--- NOTE | 2020-12-04 19:16 | EDPHYS ---
Physician Documentation [facility] Name: Bob Armstrong Age: 60 yrs Sex: Female : 1960 Arrival Date: 12/04/2020 Time: 14:08 Bed 17 Private MD: ED Physician Rajiv Travis HPI: 12/04 17:25 This 60 yrs old Female presents to ER via Ambulatory with complaints of jr8 Suicidal Ideation. 17:25 Onset: The symptoms/episode began/occurred gradually. Associated signs and symptoms: jr8 The patient has no apparent associated signs or symptoms. Severity of symptoms: At their worst the symptoms were moderate in the emergency department the symptoms are unchanged. The patient has not experienced similar symptoms in the past. The patient has not recently seen a physician. This is a 60-year-old female patient that presented to the emergency room with acute depression, anxiety, suicidal ideation. Patient stated that she has been very overwhelmed lately due to some legal and financial constraints. Had lost her a few years ago and because of the constraints she has been having to relive memories of him causing even more depression. Patient has a history of depression and bipolar and is currently medicated. Patient stated that it just became so overwhelming today she cannot take it any longer. Patient stated that she wished she could just fall asleep and not wake up. Patient did say that she does not feel like she could kill herself and does not have any current plan but that she does feel suicidal.. Historical: - Allergies: 14:08 Lyrica; aa5 14:08 steroids; aa5 14:08 zpack; aa5 - PMHx: 14:08 Anxiety; Arthritis; Depression; Diabetes - NIDDM; Hypercholesterolemia; Hyperlipidemia; aa5 Hypertension; insomnia; neuropathy; osteoarthritis; Rheumatoid Arthritis; sjorgens syndrome; Sleep Apnea; TIA; trigeminal neuralgia; 14:15 Excessive Daytime Sleepiness; "Hole to L macula due to small stroke"; aa5 - PSHx: 14:15 L rotator cuff; aa5 - Immunization history:: Client reports receiving the James \\T\\ James single-dose vaccine. - Social history:: Smoking status: Patient denies any tobacco usage or history of. Patient/guardian denies using alcohol, street drugs. ROS: 17:25 Eyes: Negative for injury, pain, redness, and discharge, ENT: Negative for injury, jr8 pain, and discharge, Neck: Negative for injury, pain, and swelling, Cardiovascular: Negative for chest pain, palpitations, and edema, Respiratory: Negative for shortness of breath, cough, wheezing, and pleuritic chest pain, Abdomen/GI: Negative for abdominal pain, nausea, vomiting, diarrhea, and constipation, Back: Negative for injury and pain, MS/Extremity: Negative for injury and deformity, Skin: Negative for injury, rash, and discoloration, Neuro: Negative for headache, weakness, numbness, tingling, and seizure. 17:25 Psych: Positive for anxiety, depression, suicidal ideation. Exam: 17:25 Eyes: Pupils equal round and reactive to light, extra-ocular motions intact. Lids and jr8 lashes normal. Conjunctiva and sclera are non-icteric and not injected. Cornea within normal limits. Periorbital areas with no swelling, redness, or edema. ENT: Nares patent. No nasal discharge, no septal abnormalities noted. Tympanic membranes are normal and external auditory canals are clear. Oropharynx with no redness, swelling, or masses, exudates, or evidence of obstruction, uvula midline. Mucous membranes moist. Neck: Trachea midline, no thyromegaly or masses palpated, and no cervical lymphadenopathy. Supple, full range of motion without nuchal rigidity, or vertebral point tenderness. No Meningismus. Cardiovascular: Regular rate and rhythm with a normal S1 and S2. No gallops, murmurs, or rubs. Normal PMI, no JVD. No pulse deficits. Respiratory: Lungs have equal breath sounds bilaterally, clear to auscultation and percussion. No rales, rhonchi or wheezes noted. No increased work of breathing, no retractions or nasal flaring. Abdomen/GI: Soft, non-tender, with normal bowel sounds. No distension or tympany. No guarding or rebound. No evidence of tenderness throughout. Back: No spinal tenderness. No costovertebral tenderness. Full range of motion. Skin: Warm, dry with normal turgor. Normal color with no rashes, no lesions, and no evidence of cellulitis. MS/ Extremity: Pulses equal, no cyanosis. Neurovascular intact. Full, normal range of motion. Neuro: Awake and alert, GCS 15, oriented to person, place, time, and situation. Cranial nerves II-XII grossly intact. Motor strength 5/5 in all extremities. Sensory grossly intact. 17:25 Constitutional: The patient appears alert, awake, anxious. 17:25 Psych: Behavior/mood is anxious, suicidal, depressed, Affect is animated, Oriented to person, place, time, Patient having thoughts of suicide. Denies suicidal plan. Judgement / Insight is normal. Memory is normal. Delusions/hallucinations are not present. Vital Signs: 14:11 BP 151 / 88; Pulse 84; Resp 18 S; Temp 98.3(TE); Pulse Ox 97% on R/A; Weight 113.4 kg aa5 (R); Height 5 ft. 11 in. (180.34 cm) (R); 14:22 BP 152 / 86; Pulse 84; Resp 18; Temp 98.2; Pulse Ox 98% on R/A; sl2 15:05 BP 150 / 84; Pulse 88; Resp 16; Temp 98.4; Pulse Ox 99% on R/A; sl2 17:30 BP 152 / 88; Pulse 85; Resp 16; Temp 98.2; Pulse Ox 99% on R/A; sl2 18:30 BP 155 / 90; Pulse 88; Resp 18; Temp 97.9(O); Pulse Ox 99% on R/A; sl2 19:55 BP 138 / 73; Pulse 71; Resp 20; Temp 98.3; Pulse Ox 98% on R/A; sl2 14:11 Body Mass Index 34.87 (113.40 kg, 180.34 cm) aa5 MDM: 14:39 Patient medically screened[address] [facility] 17:25 Data reviewed: vital signs, nurses notes, lab test result(s), EKG. Data interpreted: jr8 Pulse oximetry: on room air is 99 %. Interpretation: normal. Counseling: I had a detailed discussion with the patient and/or guardian regarding: the historical points, exam findings, and any diagnostic results supporting the discharge/admit diagnosis, lab results. 19:14 Counseling: I had a detailed discussion with the patient and/or guardian regarding: the jmm need for outpatient follow up, to return to the emergency department if symptoms worsen or persist or if there are any questions or concerns that arise at home. 12/04 15:06 Order name: Acetaminophen; Complete Time: 16:15 jr8 12/04 15:06 Order name: Basic Metabolic Panel; Complete Time: 16:15 12/04 15:06 Order name: CBC with Diff; Complete Time: 16:08 12/04 15:06 Order name: ETOH Level; Complete Time: 16:08 12/04 15:06 Order name: Hepatic Function; Complete Time: 16:15 12/04 15:06 Order name: PT-INR; Complete Time: 16:08 12/04 15:06 Order name: Ptt, Activated; Complete Time: 16:08 12/04 15:06 Order name: Salicylate; Complete Time: 16:08 12/04 15:06 Order name: Urine Drug Screen; Complete Time: 16:10 12/04 15:06 Order name: EKG; Complete Time: 15:06 12/04 15:06 Order name: EKG - Nurse/Tech; Complete Time: 15:37 12/04 15:48 Order name: Urine Dipstick-Ancillary; Complete Time: 15:52 EDMS 12/04 16:23 Order name: Urine Dipstick-Ancillary; Complete Time: 17:08 EDMS 12/04 15:06 Order name: IV Saline Lock; Complete Time: 15:36 12/04 15:06 Order name: Labs collected and sent; Complete Time: 15:36 12/04 15:06 Order name: Suicide Screening ([place]); Complete Time: 15:36 12/04 15:06 Order name: Urine Dipstick-Ancillary (obtain specimen); Complete Time: 15:37 Administered Medications: 17:30 Drug: Ibuprofen 600 mg Route: PO; sl2 19:10 Follow up: Response: No adverse reaction; Pain is decreased sl2 Disposition: 12/05 08:54 Co-signature as Attending Physician, Rajiv Travis MD I agree with the assessment and sp3 plan of care. Disposition Summary: 12/04/20 19:15 Discharge Ordered Location: Home [facility] Condition: Stable jmm Diagnosis - Anxiety disorder, unspecified jmm Followup: jmm - With: Ilia Cannon MD - When: 2 - 3 days - Reason: Recheck today's complaints, Continuance of care, Re-evaluation by your physician Discharge Instructions: - Discharge Summary Sheet [facility] - Managing Depression, Adult jmdeepa Forms: - Medication Reconciliation Form jmdeepa - Thank You Letter jf - Antibiotic Education jf - Prescription Opioid Use jf Signatures: Dispatcher [employer] James Peña PA PA jmm Calderon, Audri, RN RN aa5 Asad Andrade PA PA jr8 Rajiv Travis MD MD sp3 Mer Griffin RN RN sl2
--- NOTE | 2020-12-04 19:16 | ER ---
Nurse's Notes [facility] Name: Bob Armstrong Age: 60 yrs Sex: Female : 1960 Arrival Date: 12/04/2020 Time: 14:08 Bed 17 Private MD: Diagnosis: Anxiety disorder, unspecified Presentation: 12/04 14:10 Chief complaint: Chief complaint: Patient states: Sent here by Dr. Travis. Pt states "I aa5 am having a really bad day mentally and I haven't been sleeping well or eating well". Pt states "I just want to shut my eyes and never wake up". 14:11 Coronavirus screen: At this time, the client does not indicate any symptoms associated aa5 with coronavirus-19. Ebola Screen: No symptoms or risks identified at this time. Initial Sepsis Screen: Does the patient meet any 2 criteria? No. Patient's initial sepsis screen is negative. Does the patient have a suspected source of infection? No. Patient's initial sepsis screen is negative. Risk Assessment: Do you want to hurt yourself or someone else? Patient reports no desire to harm self or others. Onset of symptoms was December 04, 2020. 14:11 Method Of Arrival: Ambulatory aa5 14:11 Acuity: JERRY 2 aa5 Historical: - Allergies: 14:08 Lyrica; aa5 14:08 steroids; aa5 14:08 zpack; aa5 - PMHx: 14:08 Anxiety; Arthritis; Depression; Diabetes - NIDDM; Hypercholesterolemia; Hyperlipidemia; aa5 Hypertension; insomnia; neuropathy; osteoarthritis; Rheumatoid Arthritis; sjorgens syndrome; Sleep Apnea; TIA; trigeminal neuralgia; 14:15 Excessive Daytime Sleepiness; "Hole to L macula due to small stroke"; aa5 - PSHx: 14:15 L rotator cuff; aa5 - Immunization history:: Client reports receiving the James \\T\\ James single-dose vaccine. - Social history:: Smoking status: Patient denies any tobacco usage or history of. Patient/guardian denies using alcohol, street drugs. Screenin:22 Abuse screen: Denies threats or abuse. Nutritional screening: No deficits noted. sl2 Tuberculosis screening: No symptoms or risk factors identified. Fall Risk None identified. Assessment: 14:22 General: Appears distressed, well groomed, well developed, Behavior is cooperative, sl2 anxious, Reports. 14:22 Pain: Denies pain. Neuro: No deficits noted. Cardiovascular: No deficits noted. sl2 Respiratory: No deficits noted. GI: No deficits noted. : No deficits noted. EENT: No deficits noted. Derm: No deficits noted. Musculoskeletal: No deficits noted. 14:51 Reassessment: Patient LORELEIO X 3, ambulatory with steady gait, presents to ED because she sl2 states she needs help, states have been experiencing a lot of stress and has not been able to cope, states she has not been sleeping or eating well, states woke up this morning and was asking GOD to not make her wake up anymore. When asked of suicidal ideation, patient states "I would do nothing to harm myself, I would not harm myself, but I just cant take this anymore.". 15:37 Reassessment: Patient offered ED food tray, tolerating meal well, currently sitting up sl2 in bed eating while watching television. Patient denies pain, shows no signs of acute distress. 1:1 monitoring in progress for patient safety. 17:42 Reassessment: Cyber Intelligence Analyst from [facility] Hetal Simons sl2 present at bedside for patient interview and assessment. 19:55 Reassessment: Patient appears in no apparent distress at this time. Resting quietly; sl2 voices no complaints; VSS; discharge instructions given with v/u; NAD. Psych: 14:44 [place] Suicide Severity Screening: In the past month, have you wished you were sl2 or wished you could go to sleep and not wake up? Patient responds "yes." "In the past month, have you actually had any thoughts of killing yourself?" Patient responds "no." "In your lifetime, have you ever done anything, started to do anything, or prepared to do anything to end your life?" Patient responds "no.". Subjective: Patient's mood is sad, hopeless, Delusions are denied, Hallucinations are denied Having thoughts of feeling sad and depressed - denies suicidal ideation. Objective: Patient is cooperative, Speech is normal, Affect is appropriate, Patient has mutilated themselves by denies self mutilation - no evidence of self mutilation noted. Interventions: Removed personal items and placed in bag. Patient placed in hospital gown. Belonging list filled out. Safety Checks: Door is open. No visitors are present at this time. 1:1 sitter present at bedside for patient safety. Pt denies substance abuse. 19:55 Commitment: [facility] sl2 v/u. Vital Signs: 14:11 BP 151 / 88; Pulse 84; Resp 18 S; Temp 98.3(TE); Pulse Ox 97% on R/A; Weight 113.4 kg aa5 (R); Height 5 ft. 11 in. (180.34 cm) (R); 14:22 BP 152 / 86; Pulse 84; Resp 18; Temp 98.2; Pulse Ox 98% on R/A; sl2 15:05 BP 150 / 84; Pulse 88; Resp 16; Temp 98.4; Pulse Ox 99% on R/A; sl2 17:30 BP 152 / 88; Pulse 85; Resp 16; Temp 98.2; Pulse Ox 99% on R/A; sl2 18:30 BP 155 / 90; Pulse 88; Resp 18; Temp 97.9(O); Pulse Ox 99% on R/A; sl2 19:55 BP 138 / 73; Pulse 71; Resp 20; Temp 98.3; Pulse Ox 98% on R/A; sl2 14:11 Body Mass Index 34.87 (113.40 kg, 180.34 cm) aa Vitals: 14:22 Cardiac Rhythm Assessment Regular Sinus rhythm. sl2 ED Course: 14:08 Patient arrived in ED. as 14:08 Arm band placed on. aa5 14:14 Triage completed. aa5 14:22 Patient has correct armband on for positive identification. Placed in gown. Bed in low sl2 position. Call light in reach. Side rails up X2. Patient roomed directly in front of nursing station. 14:39 Asad Andrade PA is PHCP. jr8 14:39 Rajiv Travis MD is Attending Physician. jr8 14:40 Mer Griffin, DANTE is Primary Nurse. sl2 15:25 Inserted saline lock: 20 gauge in right antecubital area, using aseptic technique. mt Blood collected. 15:39 EKG done, by ED staff, reviewed by Asad RODGERS. mt 16:22 notified [facility] of need to have pt evaluated. bd 17:57 PHCP role handed off by Asad Andrade PA [facility] 17:57 James Gutierrez PA is PHCP. [facility] 19:15 Ilia Cannon MD is Referral Physician. [facility] 19:55 No provider procedures requiring assistance completed. sl2 19:55 IV discontinued, intact, bleeding controlled, No redness/swelling at site. Pressure sl2 dressing applied. Administered Medications: 17:30 Drug: Ibuprofen 600 mg Route: PO; sl2 19:10 Follow up: Response: No adverse reaction; Pain is decreased sl2 Outcome: 19:15 Discharge ordered by MD. [facility] 19:55 Condition: stable sl2 19:55 Discharged to home ambulatory. 2 19:55 Discharge instructions given to patient, Instructed on discharge instructions, follow up and referral plans. Demonstrated understanding of instructions, follow-up care. 20:14 Patient left the ED. sl2 Signatures: Hailey Martel Joel, PA PA jmm Martinez, Amelia as Calderon, Audri, RN RN aa5 Asad Andrade PA PA jr8 Thompson, Moriah mt Landell, Sophia, RN RN sl2 Corrections: (The following items were deleted from the chart) 14:14 14:10 Chief complaint: aa5 aa5
[2020-12-04 20:26] VITALS: BP 138/73; TEMP 98.3; O2SAT 98
--- NOTE | 2020-12-05 12:15 | EKG ---
Test Date: 2020-12-04 Test Time: 15:32:19 Steward/Stewardess Second: ALFRED MEASUREMENT RESULTS: Intervals: Rate: 67 NE: 164 QRSD: 82 QT: 424 QTc: 448 [place]: P: 47 NE: 164 QRS: 16 T: 45 INTERPRETIVE STATEMENTS: Normal sinus rhythm Possible Anterior infarct, age undetermined Abnormal ECG Compared to ECG 10/14/2020 19:05:36 Myocardial infarct finding now present Electronically Signed On 12-05-20 12:12:55 CDT by Anival Hargrove
== END 2020-12-04 20:14 | disposition home or self-care (01) ==
LOC: ER 14:06
DX: F41.9 Anxiety disorder, unspecified (principal); Z88.8 Allergy status to other drugs, medicaments and biological substances
CPT/HCPCS: 36415; 80048; 80076; 80307; 80320; 80329; 81003; 85025; 85610; 85730; 93005; 99284

== ENCOUNTER 2021-02-27 16:10 | Emergency (ER) | payer OTHER ==
--- OUTSIDE RECORDS SUMMARY | 2021-02-27 16:18 | XMS REPORT | Continuity of Care Document ---
:1960 Author Organization [facility] t Address [address] [place] [address] Care Team Providers Name Role Phone Tera Travis Primary Care Physician MICHAEL Attending Clinician Unavailable HINDS Attending Clinician Unavailable RADIOLOGY Attending Clinician Unavailable Radiology Attending Clinician Unavailable Doctor Unassigned, Name Attending Clinician Unavailable Madonna ANN S Attending Clinician Jordy HOWELL Attending Clinician Unavailable Liam ANN Attending Clinician Angelika RENE Attending Clinician ANGELIKA Attending Clinician Unavailable Mayo ANN L Attending Clinician Michell HUBER Attending Clinician Unavailable Mak ANN, [place] Attending Clinician Mily ANN Attending Clinician MICHAEL Attending Clinician Unavailable [id number] Attending Clinician Unavailable LAVERN Attending Clinician Unavailable MILY Admitting Clinician Unavailable Payers Payer Name Policy Type Policy Number Effective Date Expiration Date Isabella griffin [facility] MARCOS [id number] 2020 00:00:00 [employer] MEDICARE [id number] 2020 00:00:00 BCBS [facility] [id number] 2013 2020 00:00:00 00:00:00 Problems Condition Condition Condition Status Onset Resolution Last Treating Co mments Source Name Details Category Date Date Treatment Clinician Date Urge Urge Disease Active 2020-02 UT incontinen incontinen 0-15 He alth ce ce 00:00: 00 Urinary Urinary Disease Active 2020-02 UT urgency urgency 0-15 Health 00:00: 00 Urinary Urinary Disease Active 2020-02 UT frequency frequency 0-15 Heal th 00:00: 00 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 3-25 st e of one e of one 00:00: Hospit a eye eye 00 l H92.01 - Diagnosis Active 2019-022019-11-25 M emoria "OTALGIA, 0-01 12:00:00 l RIGHT EAR" H92.01 - 00:01: He rmann "OTALGIA, 00 RIGHT EAR" Active 11/11/2019 [facility] Troponin I Troponin I Disease Active U nivers above above 6-12 it[place] of [place] range range 00 [place] Elevated Elevated Disease Active Unive rs brain brain 6-12 ity of natriureti natriureti [place] c peptide c peptide 00 Medi susana (BNP) (BNP) Branch level level Obesity Obesity Disease Active Univers 6-12 ity of 00:00: [place] 00 Medical Branch HTN HTN Disease Active Univers (hypertens (hypertens 6-12 it y of ion) ion) 00:00: [place] 00 Medical Branch KARLY on KALRY on Disease Active Univers CPAP CPAP 6-12 ity of 00:00: [place] Medical Branch Type 2 Type 2 Disease Active Univers diabetes diabetes 6-12 ity of mellitus mellitus 00:00: [place] without without 00 Medical complicati complicati Br anch on, on, without without long-term long-term current current use of use of insulin insulin Systemic Systemic Disease Active Unive rs infection infection 6-12 ity of 00:00: [place] 00 Medical Branch UTI UTI Disease Active Univers (urinary (urinary 6-11 ity of tract tract 00:00: [place] infection) infection) 00 Me dical Branch RIGHT KNEE Diagnosis Active 2016-04-01 Memoria PAIN 2-20 12:48:00 l RIGHT 00:00: [place] KNEE PAIN 00 Active 04/01/2016 [place] STRESS Diagnosis Active 2015-08-10 Mem oria URINARY 4-14 07:24:00 l INCONTINEN STRESS 00:00: Herm archana CE-N39.3 / URINARY 00 URET INCONTINEN CE-N39.3 / URET Active 05/25/2015 [place] R31.2 - Diagnosis Active 2015-06-06 Me moria OTHER 3-14 16:22:00 l MICROSCOPI R31.2 - 00:01: Her brito C OTHER 00 HEMATURIA MICROSCOPI C HEMATURIA Active 04/24/2015 [facility] OPID [place] 727.00 - Diagnosis Active 2011-09-02 M emoria SYNOVITIS -20 08:58:00 l NOS 727.00 - 00:01: Randy n SYNOVITIS 00 NOS Active 08/30/2011 [facility] Anxiety Problem Resolve 2019-11-26 Mem oria (finding) d 23:02:23 l Anxiety [place] (finding) Resolved Problem 11/26/2019 NISHA KeenanTomasa [place] Chronic Problem Resolve 2019-11-26 Mem oria obstructiv d 23:02:23 l e lung Chronic [place] disease obstructiv (disorder) e lung disease (disorder) Resolved Problem 11/26/2019 NISHA KeenanTomasa [place] Depressive Problem Resolve 2019-11-26 Memoria disorder d 23:02:23 l (disorder) Randy n Depressive disorder (disorder) Resolved Problem 11/26/2019 NISHA KeenanTomasa [place] Diabetes Problem Resolve 2019-11-26 Me moria mellitus d 23:02:23 l (disorder) Diabetes He rmann mellitus (disorder) Resolved Problem 11/26/2019 NISHA KeenanTomasa [place] Endometrio Problem Resolve 2019-11-26 Memoria sis d 23:02:23 l (disorder) Randy n Endometrio sis (disorder) Resolved Problem 11/26/2019 NISHA Keenan,[facility] [place] History of History of Problem Resolve Univers arthritis arthritis HL7.[email or web address] d ity of [place] Physici ans Fibromyosi Problem Resolve 2019-11-26 Memoria tis d 23:02:23 l (disorder) Randy n Fibromyosi tis (disorder) Resolved Problem 11/26/2019 NISHA Keenan,[facility] [place] History of History of Problem Resolve Univers depression depression HL7.[email or web address] d ity of [place] [facility]ici ans Lumbar Problem Resolve 2019-11-26 Alonzo summer spondylosi d 23:02:23 l s Lumbar [place] (disorder) spondylosi s (disorder) Resolved Problem 11/26/2019 NISHA Keenan,[facility] [place] History of History of Problem Resolve Univers diabetes diabetes HL7.[email or web address] d it y of mellitus mellitus [place] Physici ans Motion Problem Resolve 2019-11-26 Alonzo summer sickness d 23:02:23 l (disorder) Motion Herm archana sickness (disorder) Resolved Problem 11/26/2019 NISHA Keenan,[facility] [place] History of History of Problem Resolve Univers essential essential HL7.CCDAR2 d ity of hypertens[place] hypertensi [place] Physici ans Neuropathy Problem Resolve 2019-11-26 Memoria (disorder) d 23:02:23 l [place] Neuropathy (disorder) Resolved Problem 11/26/2019 NISHA Keenan,[facility] [place] History of History of Problem Resolve Univers fibromyalg fibromyalg HL7.CCDAR2 d ity of ia ia [place] Physici ans Bladder Problem Resolve 2019-11-26 Mem oria muscle d 23:02:23 l dysfunctio Bladder Her brito n - muscle overactive dysfunctio (disorder) n - overactive (disorder) Resolved Problem 11/26/2019 NISHA Keenan,[facility] [place] Rheumatoid Problem Resolve 2019-11-26 Memoria arthritis d 23:02:23 l (disorder) Randy n Rheumatoid arthritis (disorder) Resolved Problem 11/26/2019 [facility] [place] Sleep Problem Resolve 2019-11-26 Alonzo summer apnea d 23:02:23 l (finding) Sleep Randy n apnea (finding) Resolved Problem 11/26/2019 NISHA Keenan,[facility] [place] Hematuria, Hematuria, Problem Active U nivers microscopi microscopi HL7.[email or web address] ity of c c [place] Physici ans Cystitis, Cystitis, Problem Active Uni vers acute acute HL7.CCDAR2 ity of [place] [facility]ici ans Post-opera Post-opera Problem Active U nivers tive state tive state HL7.CCDAR2 ity of [place] [facility]ici ans Postop Postop Problem Active Univers check check HL7.CCDAR2 ity of [place] Physici ans Enuresis Enuresis Problem Active Unive rs HL7.CCDAR2 ity of [place] Physici ans Nocturia Nocturia Problem Active Unive rs HL7.CCDAR2 ity of [place] Physici ans Chronic Chronic Problem Active Univers cystitis cystitis HL7.CCDAR2 it y of [place] [facility]ici [facility] Recent Recent Problem [...] incontinen [place]ici [place] Vaginal Vaginal Problem Active Univers [...] Univers HL7.[email or web address] ity of [place] Physici ans History of Past Illness Condition Condition Condition Status Onset Resolution Last Treating Co mments Source Name Details Category Date Date Treatment Clinician Date Discharge Problem 2016-2016-04-04 2016-04-04 Memoria Diagnosis: 2- 04:32:29 04:32:29 l Pain and 06:00: [place] swelling Discharge 00 of right Diagnosis: knee Pain and swelling of right knee 04/01/2016 04/04/2016 [place] Allergies, Adverse Reactions, Alerts Allergy Allergy Status Severity Reaction(s) Onset Inactive Treating Comm ents Source Name Type Date Date Clinician Adhesive Drug Active 2020-02 UT Tape Allergy 0-15 Health 00:00: 00 Metformi Allergy Active 2020-02 UT n to 0-15 Health substanc 00:00: e 00 Canaglif Allergy Active Other UT lozin to 9-12 reaction( Health substanc 00:00: s): Info e 00 Not Available Glimepir Allergy Active Other UT timothy to 9-12 reaction( Health substanc 00:00: s): Info e 00 Not Available Azithrom Propensi Active Other UT ycin ty to 9-12 reaction( Health adverse 00:00: s): reaction 00 Unknown s Azithrom Propensi Active Other (See Unknown M ethodi ycin ty to Comments) 06-22 st adverse 00:00: Hospita reaction 00 l s to drug Azithrom Propensi Active Unknown - Uni vers ycin ty to See comments 06-21 ity of adverse 00:00: [place] reaction 00 Medical s Branch AZITHROM DRUG Active Unknown-Cmnt Un emanuel YCIN INGREDI 06-21 ity of 00:00: [place] 00 Medical Branch Lactase Allergy Active Diarrhea 2016-0 UT to 07-21 Health substanc 00:00: e 00 Lactase Propensi Active Diarrhea 2016- Unive rs ty to 611 ity of adverse 00:00: [place] reaction 00 Medical s Branch Pregabal Propensi Active Swelling 2016- Univ ers in ty to 07-21 ity of adverse 00:00: [place] reaction 00 Medical s Branch LACTASE DRUG Active Diarrhea 2016- Univers INGREDI 07-21 ity of 00:00: [place] 00 Medical Branch PREGABAL DRUG Active Swelling Univer s IN INGREDI 07-21 ity of 00:00: [place] 00 Medical Branch Pregabal Propensi Active Swelling 2015-02 Meth gwen in ty to 02-18 st adverse 00:00: Hospita reaction 00 l s to drug Methylpr Allergy Active 2015-02 Other UT ednisolo to 0-29 reaction( Healt h ne substanc 00:00: s): e 00 Nausea/Vo miting, Unknown Invokana Adverse Active Info Not [facility] [...] - Memoria l Outpati ent Clinics Lyrica Lyrica Active Memoria l [place] Latex Latex Active Memoria l [place] Adhesive Adhesive Active Memori a l [place] Lyrica drug Active Univers CAPS allergy ity of [place] Physici ans Family History Family Member Diagnosis Comments Start Date Stop Date Source Mother Family history of Univers ity of [place] diabetes mellitus Physici ans Mother Family history of Univers ity of [place] lung cancer Physicians Mother Family history of Univers ity of [place] hypertension Physicians Father Family history of Univers [facility]y of [place] stroke Physicians Brother Family history of Univers ity [facility] diabetes mellitus Physici ans Natural father Stroke [facility] Natural mother Lung cancer [facility] Social History Social Habit Start Date Stop Date Quantity Comments Source Exposure to Not sure University SARS-CoV-2 [place] Medical (event) Branch Tobacco use and 2020-11-24 2020-11-24 Smokeless tobacco [facility] exposure 00:00:00 00:00:00 non-user Alcohol intake 2020-11-24 2020-11-24 [facility] 00:00:00 00:00:00 non-drinker (finding) Social History 2015-08-03 2015-08-03 [facility] 14:18:49 14:18:49 Sex Assigned At [birth year] [facility] 00:00:00 00:00:00 Smoking Status Start Date Stop Date Source Never smoked tobacco [facility] Medications Ordered Filled Start Stop Current Ordering Indication Dosage Frequency Signature Comments Components Source Medication Medication Date Date Medication? Clinician (SIG) Name Name ketorolac 2020-02 No 60mg 60 mg, Unive rs (TORADOL) 0-24 10-24 Intramuscu ity of injection 21:15: 21:15 lar, ONCE, [place] 60 mg 00 :00 1 dose, On Medical [place] Branch 12/03/20 at 1615, NOEL
Fa culty member approving Restricted medication : GREG PEACOCK traMADoL 2020-02 Yes [id number] 50mg Take 1 Univers (ULTRAM) 50 0-24 tablet by ity of mg tablet 00:00: mouth [place] 00 every 6 Medical (six) Branch hours as needed for Pain (scale 7-10). Indication s: acute pain traMADoL 2020-02 Yes [id number] 50mg Take 1 Univers (ULTRAM) 50 0-24 tablet by ity of mg tablet 00:00: mouth [place] 00 every 6 Medical (six) Branch hours as needed for Pain (scale 7-10). Indication s: acute pain traMADoL 2020-02 Yes [id number] 50mg Take 1 Univers (ULTRAM) 50 0-24 tablet by ity of mg tablet 00:00: mouth [place] 00 every 6 Medical (six) Branch hours as needed for Pain (scale 7-10). Indication s: acute pain traMADoL 2020-02 Yes [id number] 50mg Take 1 Univers (ULTRAM) 50 0-24 tablet by ity of mg tablet 00:00: mouth [place] 00 every 6 Medical (six) Branch hours as needed for Pain (scale 7-10). Indication s: acute pain fluconazole 2020-02- No [id number] 150mg Take 1 UT (Diflucan) 0-18 10-27 tablet Health 150 MG 00:00: 04:59 (150 mg tablet 00 :00 total) by mouth every 7 (seven) days for 2 doses. fluconazole 2020-02- No [id number] 150mg Take 1 UT (Diflucan) 0-18 10-27 tablet Health 150 MG 00:00: 04:59 (150 mg tablet 00 :00 total) by mouth every 7 (seven) days for 2 doses. budesonide- 2020-02 Yes 2{puff} Q.5D Inhale 2 UT formoterol 0-15 puffs 2 Health (Symbicort) 14:23: (two) 160-4.5 42 times a MCG/ACT day. Rinse inhaler mouth with water after use to reduce aftertaste and incidence of candidiasi s. Do not swallow. budesonide- 2020-02 Yes 2{puff} Q.5D Inhale 2 UT formoterol 0-15 puffs 2 Health (Symbicort) 14:23: (two) 160-4.5 42 times a MCG/ACT day. Rinse inhaler mouth with water after use to reduce aftertaste and incidence of candidiasi s. Do not swallow. budesonide- 2020-02 Yes 2{puff} Q.5D Inhale 2 UT formoterol 0-15 puffs 2 Health (Symbicort) 14:23: (two) 160-4.5 42 times a MCG/ACT day. Rinse inhaler mouth with water after use to reduce aftertaste and incidence of candidiasi s. Do not swallow. celecoxib 2020-02 Yes 1 capsule UT (CeleBREX) 0-15 with food [facility] 200 MG 14:23: capsule 10 leflunomide 2020-02 Yes 1 tablet UT (Arava) 20 0-15 Health MG tablet 14:23: 10 celecoxib 2020-02 Yes 1 capsule UT (CeleBREX) 0-15 with food [facility] 200 MG 14:23: capsule 10 leflunomide 2020-02 Yes 1 tablet UT (Arava) 20 0-15 Health MG tablet 14:23: 10 celecoxib 2020-02 Yes 1 capsule UT (CeleBREX) 0-15 with food [facility] 200 MG 14:23: capsule 10 leflunomide 2020-02 Yes 1 tablet UT (Arava) 20 0-15 Health MG tablet 14:23: 10 Vibegron 2020-02- No [id number] 1{tbl} QD Take 1 UT (Gemtesa) 0-15 11-15 tablet by [facility] 75 MG 00:00: 05:59 mouth 1 tablet 00 :00 (one) time each day. Vibegron 2020-02- No [id number] 1{tbl} QD Take 1 UT (Gemtesa) 0-15 11-15 tablet by [facility] 75 MG 00:00: 05:59 mouth 1 tablet 00 :00 (one) time each day. Vibegron 2020-02- No [id number] 1{tbl} QD Take 1 UT (Gemtesa) 0-15 11-15 tablet by [facility] 75 MG 00:00: 05:59 mouth 1 tablet 00 :00 (one) time each day. nystatin-tr 2020-02- No [id number] Q.5D Apply UT iamcinolone 0-15 - topically He alth (Mycolog 00:00: 04:59 2 (two) II) 00 :00 times a ointment day for 7 days. nystatin-tr 2020-02- No [id number] Q.5D Apply UT iamcinolone 0-15 10-23 topically He alth (Mycolog 00:00: 04:59 2 (two) II) 00 :00 times a ointment day for 7 days. nystatin-tr 2020-02- No [id number] Q.5D Apply UT iamcinolone 0-15 10-23 topically He alth (Mycolog 00:00: 04:59 2 (two) II) 00 :00 times a ointment day for 7 days. armodafinil 2020- No 250mg QD Take 250 Methodi (NUVIGIL) 5-17 05-[address] 250 mg 16:54: 00:00 mouth Hospita tablet 02 :00 daily. l armodafiniL 2020- No [id number] 250mg QD Take 1 Methodi (NUVIGIL) 5-17 11-[address] 250 mg 00:00: 05:59 (250 mg Hospita tablet 00 :00 total) by l mouth daily for 180 days. amitriptyli 2020- No 50mg QD Take 50 mg UT ne (Elavil) 5-14 11-12 by mouth 1 H ealth 25 MG 00:00: 05:59 (one) time tablet 00 :00 each day. amitriptyli 2020- No 50mg QD Take 50 mg UT ne (Elavil) 5-14 11-12 by mouth 1 H ealth 25 MG 00:00: 05:59 (one) time tablet 00 :00 each day. amitriptyli 2020- No 50mg QD Take 50 mg UT ne (Elavil) 5-14 11-12 by mouth 1 H ealth 25 MG 00:00: 05:59 (one) time tablet 00 :00 each day. amitriptyli 2020- No [id number] 50mg QD Take 2 Methodi ne (ELAVIL) 5-14 11-[address] 25 MG 00:00: 05:59 (50 mg Hospita tablet 00 :00 total) by l mouth nightly for 180 days. carBAMazepi 2021- No [id number] 200mg Q.5D Take 1 Methodi ne 06-22 05-[address] (TEGretoL) 00:00: 04:59 (200 mg Hos ileana 200 mg 00 :00 total) by l tablet mouth 2 (two) times a day. Dexlansopra 2020- No 60mg Take 60 mg Univers zole 5-12 05-12 by mouth ity of (DEXILANT) 21:25: 00:00 [place]. [place] 60 mg 27 :00 Medical capsule Branch Dexlansopra 2020- No 60mg Take 60 mg Univers zole 5-12 05-12 by mouth ity of (DEXILANT) 21:25: 00:00 daily. [place] 60 mg 27 :00 Medical capsule Branch Dexlansopra 2020- No 60mg Take 60 mg Univers zole 5-12 05-12 by mouth ity of (DEXILANT) 21:25: 00:00 daily. [place] 60 mg 27 :00 Medical capsule Branch Milnacipran Yes 50mg Take 50 mg Univers (SAVELLA) 5-12 by mouth ity of 50 mg 20:10: at [place] tablet 56 bedtime. Medical Branch Milnacipran Yes 50mg Take 50 mg Univers (SAVELLA) 5-12 by mouth ity of 50 mg 20:10: at [place] tablet 56 bedtime. Medical Branch Milnacipran Yes 50mg Take 50 mg Univers (SAVELLA) 5-12 by mouth ity of 50 mg 20:10: at [place] tablet 56 bedtime. Medical Branch Milnacipran Yes 50mg Take 50 mg Univers (SAVELLA) 5-12 by mouth ity of 50 mg 20:10: at [place] tablet 56 bedtime. Medical Branch Milnacipran Yes 50mg Take 50 mg Univers (SAVELLA) 5-12 by mouth ity of 50 mg 20:10: at [place] tablet 56 bedtime. Medical Branch Milnacipran Yes 50mg Take 50 mg Univers (SAVELLA) 5-12 by mouth ity of 50 mg 20:10: at [place] tablet 56 bedtime. Medical Branch Armodafinil Yes 250mg Take 250 U nivers (NUVIGIL) 5-12 mg by ity of 250 mg Tab 20:09: mouth [place] [address] daily. Medical Branch cycloSPORIN Yes 1[drp] Place 1 U nivers E 5-12 Drop in ity of (RESTASIS) 20:09: both eyes [place] 0.05 % 27 every 12 Medical drops (twelve) Branch hours. aspirin 81 Yes 81mg Take 81 mg U nivers mg chewable 5-12 by mouth ity of tablet 20:09: daily. [address] Branch atorvastati Yes 10mg Take 10 mg Univers n 10 mg 5-12 by mouth. ity of tablet 20:09: [address] doxepin 10 Yes 10mg Take 10 mg U nivers mg capsule 5-12 by mouth. ity of 20:09: [address] insulin Yes 160U inject 160 Univ ers glargine 5-12 Units ity of U-300 conc 20:09: under the [place] (TOUJEO 27 skin. Medical SOLOSTAR Branch U-300 INSULIN) 300 unit/mL (1.5 mL) InPn lithium Yes 300mg Take 300 Unive rs carbonate 5-12 mg by ity of 300 mg 20:09: mouth. [address] Branch SERTraline Yes 50mg Take 50 mg U nivers 50 mg 5-12 by mouth. ity of tablet 20:09: [address] Branch celecoxib Yes 200mg Take 200 Uni vers (CELEBREX) 5-12 mg by ity of 200 mg 20:09: mouth 2 [place] capsule 27 (two) Medical times [place] daily. hydroxychlo Yes 200mg Take 200 U nivers roquine 200 5-12 mg by ity of mg tablet 20:09: mouth 2 [place] [address] (two) Medical times [place] daily. cyclobenzap Yes 10mg Take 10 mg Univers rine 10 mg 5-12 by mouth 3 ity of tablet 20:09: (three) [place] [address] times [facility] daily. Branch pilocarpine Yes 7.5mg Take 7.5 U nivers 7.5 mg 5-12 mg by ity of tablet 20:09: mouth 3 [place] [address] (three) Medical times Branch daily. Armodafinil 0 Yes 250mg Take 250 U nivers (NUVIGIL) 5-12 mg by ity of 250 mg Tab 20:09: mouth [place] [address] daily. Medical Branch cycloSPORIN 0 Yes 1[drp] Place 1 U nivers E 5-12 Drop in ity of (RESTASIS) 20:09: both eyes [place] 0.05 % 27 every 12 Medical drops (twelve) Branch hours. aspirin 81 0 Yes 81mg Take 81 mg U nivers mg chewable 5-12 by mouth ity of tablet 20:09: daily. [address] Branch atorvastati Yes 10mg Take 10 mg Univers n 10 mg 5-12 by mouth. ity of tablet 20:09: [address] doxepin 10 Yes 10mg Take 10 mg U nivers mg capsule 5-12 by mouth. ity of 20:09: [address] insulin Yes 160U inject 160 Univ ers glargine 5-12 Units ity of U-300 conc 20:09: under the [place] (TOUJEO 27 skin. Medical SOLOSTAR Branch U-300 INSULIN) 300 unit/mL (1.5 mL) InPn lithium Yes 300mg Take 300 Unive rs carbonate 5-12 mg by ity of 300 mg 20:09: mouth. [address] Branch SERTraline Yes 50mg Take 50 mg U nivers 50 mg 5-12 by mouth. ity of tablet 20:09: [address] celecoxib Yes 200mg Take 200 Uni vers (CELEBREX) 5-12 mg by ity of 200 mg 20:09: mouth 2 [place] [address] (two) Medical times Branch daily. hydroxychlo 2020-0 Yes 200mg Take 200 U nivers roquine 200 5-12 mg by ity of mg tablet 20:09: mouth 2 [place] [address] (two) Medical times [place] daily. cyclobenzap Yes 10mg Take 10 mg Univers rine 10 mg 5-12 by mouth 3 ity of tablet 20:09: (three) [place] [address] times Medical daily. Branch pilocarpine Yes 7.5mg Take 7.5 U nivers 7.5 mg 5-12 mg by ity of tablet 20:09: mouth 3 [place] [address] (three) Medical times Branch daily. Armodafinil Yes 250mg Take 250 U nivers (NUVIGIL) 5-12 mg by ity of 250 mg Tab 20:09: mouth [place] [address] daily. Medical Branch cycloSPORIN Yes 1[drp] Place 1 U nivers E 5-12 Drop in ity of (RESTASIS) 20:09: both eyes [place] 0.05 % 27 every 12 Medical drops (twelve) Branch hours. aspirin 81 0 Yes 81mg Take 81 mg U nivers mg chewable 5-12 by mouth ity of tablet 20:09: daily. [address] Branch atorvastati Yes 10mg Take 10 mg Univers n 10 mg 5-12 by mouth. ity of tablet 20:09: [address] doxepin 10 Yes 10mg Take 10 mg U nivers mg capsule 5-12 by mouth. ity of 20:09: [address] insulin Yes 160U inject 160 Univ ers glargine 5-12 Units ity of U-300 conc 20:09: under the [place] (TOUJEO 27 skin. Medical SOLOSTAR Branch U-300 INSULIN) 300 unit/mL (1.5 mL) InPn lithium Yes 300mg Take 300 Unive rs carbonate 5-12 mg by ity of 300 mg 20:09: mouth. [place] [address] Medical Branch SERTraline Yes 50mg Take 50 mg U nivers 50 mg 5-12 by mouth. ity of tablet 20:09: [address] Branch celecoxib Yes 200mg Take 200 Uni vers (CELEBREX) 5-12 mg by ity of 200 mg 20:09: mouth 2 [place] [address] (two) Medical times Branch daily. hydroxychlo Yes 200mg Take 200 U nivers roquine 200 5-12 mg by ity of mg tablet 20:09: mouth 2 [place] [address] (two) Medical times Branch daily. cyclobenzap Yes 10mg Take 10 mg Univers rine 10 mg 5-12 by mouth 3 ity of tablet 20:09: (three) [place] [address] times Medical daily. Branch pilocarpine Yes 7.5mg Take 7.5 U nivers 7.5 mg 5-12 mg by ity of tablet 20:09: mouth 3 [place] [address] (three) Medical times Branch daily. Armodafinil Yes 250mg Take 250 U nivers (NUVIGIL) 5-12 mg by ity of 250 mg Tab 20:09: mouth [place] [address] daily. Medical Branch cycloSPORIN Yes 1[drp] Place 1 U nivers E 5-12 Drop in ity of (RESTASIS) 20:09: both eyes [place] 0.05 % 27 every 12 Medical drops (twelve) Branch hours. aspirin 81 Yes 81mg Take 81 mg U nivers mg chewable 5-12 by mouth ity of tablet 20:09: daily. [address] atorvastati Yes 10mg Take 10 mg Univers n 10 mg 5-12 by mouth. ity of tablet 20:09: [address] doxepin 10 Yes 10mg Take 10 mg U nivers mg capsule 5-12 by mouth. ity of 20:09: [address] insulin Yes 160U inject 160 Univ ers glargine 5-12 Units ity of U-300 conc 20:09: under the [place] (TOUJEO 27 skin. Medical SOLOSTAR Branch U-300 INSULIN) 300 unit/mL (1.5 mL) InPn lithium Yes 300mg Take 300 Unive rs carbonate 5-12 mg by ity of 300 mg 20:09: mouth. [place] capsule [address] [place] [address] Branch SERTraline Yes 50mg Take 50 mg U nivers 50 mg 5-12 by mouth. ity of tablet 20:09: [address] celecoxib Yes 200mg Take 200 Uni vers (CELEBREX) 5-12 mg by ity of 200 mg 20:09: mouth 2 [place] capsule (two) Medical times Branch daily. hydroxychlo Yes 200mg Take 200 U nivers roquine 200 5-12 mg by ity of mg tablet 20:09: mouth 2 [place] [address] (two) Medical times [place] daily. cyclobenzap Yes 10mg Take 10 mg Univers rine 10 mg 5-12 by mouth 3 ity of tablet 20:09: (three) [address] daily. Branch pilocarpine Yes 7.5mg Take 7.5 U nivers 7.5 mg 5-12 mg by ity of tablet 20:09: mouth 3 [place] [address] (three) Medical times [place] daily. Armodafinil Yes 250mg Take 250 U nivers (NUVIGIL) 5-12 mg by ity of 250 mg Tab 20:09: mouth [place] [address] daily. Medical Branch cycloSPORIN Yes 1[drp] Place 1 U nivers E 5-12 Drop in ity of (RESTASIS) 20:09: both eyes [place] 0.05 % 27 every 12 Medical drops (twelve) Branch hours. aspirin 81 Yes 81mg Take 81 mg U nivers mg chewable 5-12 by mouth ity of tablet 20:09: daily. [address] atorvastati Yes 10mg Take 10 mg Univers n 10 mg 5-12 by mouth. ity of tablet 20:09: [address] doxepin 10 Yes 10mg Take 10 mg U nivers mg capsule 5-12 by mouth. ity of 20:09: [address] insulin Yes 160U inject 160 Univ ers glargine 5-12 Units ity of U-300 conc 20:09: under the [place] (TOUJEO 27 skin. Medical SOLOSTAR Branch U-300 INSULIN) 300 unit/mL (1.5 mL) InPn lithium Yes 300mg Take 300 Unive rs carbonate 5-12 mg by ity of 300 mg 20:09: mouth. [address] SERTraline Yes 50mg Take 50 mg U nivers 50 mg 5-12 by mouth. ity of tablet 20:09: [address] celecoxib Yes 200mg Take 200 Uni vers (CELEBREX) 5-12 mg by ity of 200 mg 20:09: mouth 2 [place] [address] (two) Medical times [place] daily. hydroxychlo Yes 200mg Take 200 U nivers roquine 200 5-12 mg by ity of mg tablet 20:09: mouth 2 [place] [address] (two) Medical times Branch daily. cyclobenzap Yes 10mg Take 10 mg Univers rine 10 mg 5-12 by mouth 3 ity of tablet 20:09: (three) [place] [address] times Medical daily. Branch pilocarpine Yes 7.5mg Take 7.5 U nivers 7.5 mg 5-12 mg by ity of tablet 20:09: mouth 3 [place] [address] (three) Medical times [place] daily. Armodafinil Yes 250mg Take 250 U nivers (NUVIGIL) 5-12 mg by ity of 250 mg Tab 20:09: mouth [place] [address] daily. Medical Branch cycloSPORIN Yes 1[drp] Place 1 U nivers E 5-12 Drop in ity of (RESTASIS) 20:09: both eyes [place] 0.05 % 27 every 12 Medical drops (twelve) Branch hours. aspirin 81 Yes 81mg Take 81 mg U nivers mg chewable 5-12 by mouth ity of tablet 20:09: daily. [address] atorvastati Yes 10mg Take 10 mg Univers n 10 mg 5-12 by mouth. ity of tablet 20:09: [address] doxepin 10 Yes 10mg Take 10 mg U nivers mg capsule 5-12 by mouth. ity of 20:09: [address] insulin Yes 160U inject 160 Univ ers glargine 5-12 Units ity of U-300 conc 20:09: under the [place] (TOUJEO 27 skin. Medical SOLOSTAR Branch U-300 INSULIN) 300 unit/mL (1.5 mL) InPn lithium Yes 300mg Take 300 Unive rs carbonate 5-12 mg by ity of 300 mg 20:09: mouth. [address] Branch SERTraline Yes 50mg Take 50 mg U nivers 50 mg 5-12 by mouth. ity of tablet 20:09: [address] celecoxib Yes 200mg Take 200 Uni vers (CELEBREX) 5-12 mg by ity of 200 mg 20:09: mouth 2 [facility] 27 (two) Medical times Branch daily. hydroxychlo 2020-0 Yes 200mg Take 200 U nivers roquine 200 5-12 mg by ity of mg tablet 20:09: mouth 2 [place] (two) Medical times Branch daily. cyclobenzap 2020-0 Yes 10mg Take 10 mg Univers rine 10 mg 5-12 by mouth 3 ity of tablet 20:09: (three) [place] [address] times Medical daily. Branch pilocarpine 2020-0 Yes 7.5mg Take 7.5 U nivers 7.5 mg 5-12 mg by ity of tablet 20:09: mouth 3 [place] (three) Medical times Branch daily. exenatide 2020-0 Yes 2mg inject 2 Univ ers microsphere 5-12 mg under ity of s 2 mg/0.65 20:07: the skin. [place] mL 40 Medical injection Branch exenatide 2020-0 Yes 2mg inject 2 Univ ers microsphere 5-12 mg under ity of s 2 mg/0.65 20:07: the skin. [place] mL 40 Medical injection Branch exenatide 2020-0 Yes 2mg inject 2 Univ ers microsphere 5-12 mg under ity of s 2 mg/0.65 20:07: the skin. [place] mL 40 Medical injection Branch exenatide 1-0 Yes 2mg inject 2 Univ ers microsphere 5-12 mg under ity of s 2 mg/0.65 20:07: the skin. [place] mL 40 Medical injection Branch exenatide 1-0 Yes 2mg inject 2 Univ ers microsphere 5-12 mg under ity of s 2 mg/0.65 20:07: the skin. [place] mL 40 Medical injection Branch exenatide 1-0 Yes 2mg inject 2 Univ ers microsphere 5-12 mg under ity of s 2 mg/0.65 20:07: the skin. [place] mL 40 Medical injection Branch Milnacipran 1-0 Yes 50mg Take 50 mg Univers (SAVELLA) 5-12 by mouth ity of 50 mg 15:10: at [place] tablet 56 bedtime. Medical Branch Milnacipran 2021-0 Yes 50mg Take 50 mg Univers (SAVELLA) 5-12 by mouth ity of 50 mg 15:10: at [place] tablet 56 bedtime. Medical Branch Milnacipran Yes 50mg Take 50 mg Univers (SAVELLA) 5-12 by mouth ity of 50 mg 15:10: at [place] tablet 56 bedtime. Medical Branch Milnacipran Yes 50mg Take 50 mg Univers (SAVELLA) 5-12 by mouth ity of 50 mg 15:10: at [place] tablet 56 bedtime. Medical Branch Milnacipran Yes 50mg Take 50 mg Univers (SAVELLA) 5-12 by mouth ity of 50 mg 15:10: at [place] tablet 56 bedtime. Medical Branch pilocarpine Yes 7.5mg Take 7.5 U nivers 7.5 mg 5-12 mg by ity of tablet 15:09: mouth 3 [place] [address] (three) Medical times Branch daily. Armodafinil Yes 250mg Take 250 U nivers (NUVIGIL) 5-12 mg by ity of 250 mg Tab 15:09: mouth [place] [address] daily. Medical Branch cycloSPORIN Yes 1[drp] Place 1 U nivers E 5-12 Drop in ity of (RESTASIS) 15:09: both eyes [place] 0.05 % 27 every 12 Medical drops (twelve) Branch hours. aspirin 81 Yes 81mg Take 81 mg U nivers mg chewable 5-12 by mouth ity of tablet 15:09: daily. [address] atorvastati Yes 10mg Take 10 mg Univers n 10 mg 5-12 by mouth. ity of tablet 15:09: [address] doxepin 10 Yes 10mg Take 10 mg U nivers mg capsule 5-12 by mouth. ity of 15:09: [address] insulin Yes 160U inject 160 Univ ers glargine 5-12 Units ity of U-300 conc 15:09: under the [place] (TOUJEO 27 skin. Medical SOLOSTAR Branch U-300 INSULIN) 300 unit/mL (1.5 mL) InPn lithium Yes 300mg Take 300 Unive rs carbonate 5-12 mg by ity of 300 mg 15:09: mouth. [place] capsule [address] [place] [address] Branch SERTraline 2021-0 Yes 50mg Take 50 mg U nivers 50 mg 5-12 by mouth. ity of tablet 15:09: [address] Branch celecoxib Yes 200mg Take 200 Uni vers (CELEBREX) 5-12 mg by ity of 200 mg 15:09: mouth 2 [facility] 27 (two) Medical times Branch daily. hydroxychlo Yes 200mg Take 200 U nivers roquine 200 5-12 mg by ity of mg tablet 15:09: mouth 2 [place] [address] (two) Medical times Branch daily. cyclobenzap Yes 10mg Take 10 mg Univers rine 10 mg 5-12 by mouth 3 ity of tablet 15:09: (three) [place] [address] times [facility] daily. Branch pilocarpine Yes 7.5mg Take 7.5 U nivers 7.5 mg 5-12 mg by ity of tablet 15:09: mouth 3 [place] [address] (three) Medical times Branch daily. Armodafinil Yes 250mg Take 250 U nivers (NUVIGIL) 5-12 mg by ity of 250 mg Tab 15:09: mouth [place] [address] daily. Medical Branch cycloSPORIN Yes 1[drp] Place 1 U nivers E 5-12 Drop in ity of (RESTASIS) 15:09: both eyes [place] 0.05 % 27 every 12 Medical drops (twelve) Branch hours. aspirin 81 Yes 81mg Take 81 mg U nivers mg chewable 5-12 by mouth ity of tablet 15:09: daily. [address] atorvastati Yes 10mg Take 10 mg Univers n 10 mg 5-12 by mouth. ity of tablet 15:09: [address] Branch doxepin 10 Yes 10mg Take 10 mg U nivers mg capsule 5-12 by mouth. ity of 15:09: [address] insulin Yes 160U inject 160 Univ ers glargine 5-12 Units ity of U-300 conc 15:09: under the [place] (TOUJEO 27 skin. Medical SOLOSTAR Branch U-300 INSULIN) 300 unit/mL (1.5 mL) InPn lithium Yes 300mg Take 300 Unive rs carbonate 5-12 mg by ity of 300 mg 15:09: mouth. [place] [address] Medical Branch SERTraline Yes 50mg Take 50 mg U nivers 50 mg 5-12 by mouth. ity of tablet 15:09: [address] celecoxib Yes 200mg Take 200 Uni vers (CELEBREX) 5-12 mg by ity of 200 mg 15:09: mouth 2 [place] [address] (two) Medical times [place] daily. hydroxychlo Yes 200mg Take 200 U nivers roquine 200 5-12 mg by ity of mg tablet 15:09: mouth 2 [place] [address] (two) Medical times [place] daily. cyclobenzap Yes 10mg Take 10 mg Univers rine 10 mg 5-12 by mouth 3 ity of tablet 15:09: (three) [address] daily. Branch pilocarpine Yes 7.5mg Take 7.5 U nivers 7.5 mg 5-12 mg by ity of tablet 15:09: mouth 3 [place] [address] (three) Medical [facility] daily. Armodafinil Yes 250mg Take 250 U nivers (NUVIGIL) 5-12 mg by ity of 250 mg Tab 15:09: mouth [place] [address] daily. Medical Branch cycloSPORIN Yes 1[drp] Place 1 U nivers E 5-12 Drop in ity of (RESTASIS) 15:09: both eyes [place] 0.05 % 27 every 12 Medical drops (twelve) Branch hours. aspirin 81 Yes 81mg Take 81 mg U nivers mg chewable 5-12 by mouth ity of tablet 15:09: daily. [address] atorvastati Yes 10mg Take 10 mg Univers n 10 mg 5-12 by mouth. ity of tablet 15:09: [address] Branch doxepin 10 Yes 10mg Take 10 mg U nivers mg capsule 5-12 by mouth. ity of 15:09: [address] insulin Yes 160U inject 160 Univ ers glargine 5-12 Units ity of U-300 conc 15:09: under the [place] (TOUJE[place] 27 skin. Medical SOLOSTAR Branch U-300 INSULIN) 300 unit/mL (1.5 mL) InPn lithium Yes 300mg Take 300 Unive rs carbonate 5-12 mg by ity of 300 mg 15:09: mouth. [place] capsule Medical Branch SERTraline Yes 50mg Take 50 mg U nivers 50 mg 5-12 by mouth. ity of tablet 15:09: [address] Branch celecoxib Yes 200mg Take 200 Uni vers (CELEBREX) 5-12 mg by ity of 200 mg 15:09: mouth 2 [place] [address] (two) Medical times Branch daily. hydroxychlo Yes 200mg Take 200 U nivers roquine 200 5-12 mg by ity of mg tablet 15:09: mouth 2 [place] [address] (two) Medical times [place] daily. cyclobenzap Yes 10mg Take 10 mg Univers rine 10 mg 5-12 by mouth 3 ity of tablet 15:09: (three) [address] daily. Branch pilocarpine Yes 7.5mg Take 7.5 U nivers 7.5 mg 5-12 mg by ity of tablet 15:09: mouth 3 [place] [address] (three) Medical times [place] daily. Armodafinil Yes 250mg Take 250 U nivers (NUVIGIL) 5-12 mg by ity of 250 mg Tab 15:09: mouth [place] [address] daily. Medical Branch cycloSPORIN Yes 1[drp] Place 1 U nivers E 5-12 Drop in ity of (RESTASIS) 15:09: both eyes [place] 0.05 % 27 every 12 Medical drops (twelve) Branch hours. aspirin 81 Yes 81mg Take 81 mg U nivers mg chewable 5-12 by mouth ity of tablet 15:09: daily. [address] Branch atorvastati Yes 10mg Take 10 mg Univers n 10 mg 5-12 by mouth. ity of tablet 15:09: [address] doxepin 10 Yes 10mg Take 10 mg U nivers mg capsule 5-12 by mouth. ity of 15:09: [address] Branch insulin Yes 160U inject 160 Univ ers glargine 5-12 Units ity of U-300 conc 15:09: under the [place] ([place]OUJE[place] 27 skin. Medical SOLOSTAR Branch U-300 INSULIN) 300 unit/mL (1.5 mL) InPn lithium Yes 300mg Take 300 Unive rs carbonate 5-12 mg by ity of 300 mg 15:09: mouth. [place] [address] Medical Branch SERTraline Yes 50mg Take 50 mg U nivers 50 mg 5-12 by mouth. ity of tablet 15:09: [address] celecoxib Yes 200mg Take 200 Uni vers (CELEBREX) 5-12 mg by ity of 200 mg 15:09: mouth 2 [place] [address] (two) Medical times Branch daily. hydroxychlo Yes 200mg Take 200 U nivers roquine 200 5-12 mg by ity of mg tablet 15:09: mouth 2 [place] [address] (two) Medical times [place] daily. cyclobenzap Yes 10mg Take 10 mg Univers rine 10 mg 5-12 by mouth 3 ity of tablet 15:09: (three) [place] [address] times [facility] daily. Branch pilocarpine Yes 7.5mg Take 7.5 U nivers 7.5 mg 5-12 mg by ity of tablet 15:09: mouth 3 [place] [address] (three) Medical times [place] daily. Armodafinil Yes 250mg Take 250 U nivers (NUVIGIL) 5-12 mg by ity of 250 mg Tab 15:09: mouth [place] [address] daily. Medical Branch cycloSPORIN Yes 1[drp] Place 1 U nivers E 5-12 Drop in ity of (RESTASIS) 15:09: both eyes [place] 0.05 % 27 every 12 Medical drops (twelve) Branch hours. aspirin 81 Yes 81mg Take 81 mg U nivers mg chewable 5-12 by mouth ity of tablet 15:09: daily. [address] atorvastati Yes 10mg Take 10 mg Univers n 10 mg 5-12 by mouth. ity of tablet 15:09: [address] Branch doxepin 10 Yes 10mg Take 10 mg U nivers mg capsule 5-12 by mouth. ity of 15:09: [address] insulin Yes 160U inject 160 Univ ers glargine 5-12 Units ity of U-300 conc 15:09: under the [place] ([place]OUJEO 27 skin. Medical SOLOSTAR Branch U-300 INSULIN) 300 unit/mL (1.5 mL) InPn lithium Yes 300mg Take 300 Unive rs carbonate 5-12 mg by ity of 300 mg 15:09: mouth. [place] [address] Medical Branch SERTraline 2020-0 Yes 50mg Take 50 mg U nivers 50 mg 5-12 by mouth. ity of tablet 15:09: [place] [address] Medical Branch celecoxib 2020-0 Yes 200mg Take 200 Uni vers (CELEBREX) 5-12 mg by ity of 200 mg 15:09: mouth 2 [place] capsule (two) Medical times Branch daily. hydroxychlo 2020-0 Yes 200mg Take 200 U nivers roquine 200 5-12 mg by ity of mg tablet 15:09: mouth 2 [place] [address] (two) Medical times Branch daily. cyclobenzap Yes 10mg Take 10 mg Univers rine 10 mg 5-12 by mouth 3 ity of tablet 15:09: (three) [place] [address] times Medical daily. Branch exenatide 2020-0 Yes 2mg inject 2 Univ ers microsphere 5-12 mg under ity of s 2 mg/0.65 15:07: the skin. [place] mL 40 Medical injection Branch exenatide 2020-0 Yes 2mg inject 2 Univ ers microsphere 5-12 mg under ity of s 2 mg/0.65 15:07: the skin. [place] mL 40 Medical injection Branch exenatide 2020-0 Yes 2mg inject 2 Univ ers microsphere 5-12 mg under ity of s 2 mg/0.65 15:07: the skin. [place] mL 40 Medical injection Branch exenatide 2020-0 Yes 2mg inject 2 Univ ers microsphere 5-12 mg under ity of s 2 mg/0.65 15:07: the skin. [place] mL 40 Medical injection Branch exenatide 2020-0 Yes 2mg inject 2 Univ ers microsphere 5-12 mg under ity of s 2 mg/0.65 15:07: the skin. [place] mL 40 Medical injection Branch oxybutynin 2020-0 Yes [id number] 5mg Take 1 U nivers XL 5 mg 24 5-12 tablet by ity of hr tablet 00:00: mouth [place] 00 daily. Medical Branch oxybutynin 2020-0 Yes [id number] 5mg Take 1 U nivers XL 5 mg 24 5-12 tablet by ity of hr tablet 00:00: mouth [place] 00 daily. Medical Branch oxybutynin 2020-0 Yes [id number] 5mg Take 1 U nivers XL 5 mg 24 5-12 tablet by ity of hr tablet 00:00: mouth [place] 00 daily. Medical Branch oxybutynin 2020-0 Yes [id number] 5mg Take 1 U nivers XL 5 mg 24 5-12 tablet by ity of hr tablet 00:00: mouth [place] 00 daily. Medical Branch oxybutynin 2020-0 Yes [id number] 5mg Take 1 U nivers XL 5 mg 24 5-12 tablet by ity of hr tablet 00:00: mouth [place] 00 daily. Medical Branch oxybutynin 2020-0 Yes [id number] 5mg Take 1 U nivers XL 5 mg 24 5-12 tablet by ity of hr tablet 00:00: mouth [place] 00 daily. Medical Branch oxybutynin 2020-0 Yes [id number] 5mg Take 1 U nivers XL 5 mg 24 5-12 tablet by ity of hr tablet 00:00: mouth [place] 00 daily. Medical Branch oxybutynin 0 Yes [id number] 5mg Take 1 U nivers XL 5 mg 24 5-12 tablet by ity of hr tablet 00:00: mouth [place] 00 daily. Medical Branch oxybutynin 2020-0 Yes [id number] 5mg Take 1 U nivers XL 5 mg 24 5-12 tablet by ity of hr tablet 00:00: mouth [place] 00 daily. Medical Branch oxybutynin 2020-0 Yes [id number] 5mg Take 1 U nivers XL 5 mg 24 5-12 tablet by ity of hr tablet 00:00: mouth [place] 00 daily. Medical Branch oxybutynin 2020-0 Yes [id number] 5mg Take 1 U nivers XL 5 mg 24 5-12 tablet by ity of hr tablet 00:00: mouth [place] 00 daily. Medical Branch aspirin 81 2020-0 Yes 81mg Chew 81 [facility] MG chewable 5-12 mg. Health tablet 00:00: 00 cyclobenzap 2021-0 Yes 1 tablet [facility] rine 5-12 as needed Health (Flexeril) 00:00: 10 MG 00 tablet aspirin 81 2020-0 Yes 81mg Chew 81 UT MG chewable 5-12 mg. Health tablet 00:00: 00 cyclobenzap 2020-0 Yes 1 tablet [facility] rine 5-12 as needed Health (Flexeril) 00:00: 10 MG 00 tablet aspirin 81 2020-0 Yes 81mg Chew 81 UT MG chewable 5-12 mg. Health tablet 00:00: 00 cyclobenzap 0 Yes 1 tablet [facility] rine 5-12 as needed Health (Flexeril) 00:00: 10 MG 00 tablet armodafinil 0 2020- No 250mg QD Take 250 UT (Nuvigil) 5-12 11-15 mg by Health 250 MG 00:00: 05:59 mouth 1 tablet 00 :00 (one) time each day. armodafinil 2020- No 250mg QD Take 250 UT (Nuvigil) 5-12 11-15 mg by Health 250 MG 00:00: 05:59 mouth 1 tablet 00 :00 (one) time each day. armodafinil 2020- No 250mg QD Take 250 UT (Nuvigil) 5-12 11-15 mg by Health 250 MG 00:00: 05:59 mouth 1 tablet 00 :00 (one) time each day. metformin 0 Yes Univers ER 500 mg 5-10 ity of 24 hr 00:00: [place] tablet [facility] metformin 2020-0 Yes Univers ER 500 mg 5-10 ity of 24 hr 00:00: [place] tablet [facility] metformin 2020-0 Yes Univers ER 500 mg 5-10 ity of 24 hr 00:00: [place] tablet [facility] metformin 2020-0 Yes Univers ER 500 mg 5-10 ity of 24 hr 00:00: [place] tablet [facility] metformin 2020-0 Yes Univers ER 500 mg 5-10 ity of 24 hr 00:00: [place] tablet [facility] metformin 2020-0 Yes Univers ER 500 mg 5-10 ity of 24 hr 00:00: [place] tablet [facility] metformin 2020-0 Yes Univers ER 500 mg 5-10 ity of 24 hr 00:00: [place] tablet 00 Medical Branch metformin 2021-0 Yes Univers ER 500 mg 5-10 ity of 24 hr 00:00: [place] tablet 00 Medical Branch metformin 2021-0 Yes Univers ER 500 mg 5-10 ity of 24 hr 00:00: [place] tablet 00 Medical Branch metformin 2021-0 Yes Univers ER 500 mg 5-10 ity of 24 hr 00:00: [place] tablet Medical Branch metformin 2021-0 Yes Univers ER 500 mg 5-10 ity of 24 hr 00:00: [place] tablet Medical Branch gabapentin 2021-0 Yes Univers 300 mg 4-23 ity of capsule 00:00: [place] [address] Medical Branch gabapentin 2021-0 Yes Univers 300 mg 4-23 ity of capsule 00:00: [place] [address] Medical Branch gabapentin 2021-0 Yes Univers 300 mg 4-23 ity of capsule 00:00: [place] [address] Medical Branch gabapentin 2021-0 Yes Univers 300 mg 4-23 ity of capsule 00:00: [place] [address] Medical Branch gabapentin 2021-0 Yes Univers 300 mg 4-23 ity of capsule 00:00: [place] [address] Medical Branch gabapentin 2021-0 Yes Univers 300 mg 4-23 ity of capsule 00:00: [place] [address] Medical Branch gabapentin 2021-0 Yes Univers 300 mg 4-23 ity of capsule 00:00: [place] [address] Medical Branch gabapentin 2021-0 Yes Univers 300 mg 4-23 ity of capsule 00:00: [place] [address] Medical Branch gabapentin 2021-0 Yes Univers 300 mg 4-23 ity of capsule 00:00: [place] [address] Medical Branch gabapentin 2021-0 Yes Univers 300 mg 4-23 ity of capsule 00:00: [place] [address] Medical Branch gabapentin 2021-0 Yes Univers 300 mg 4-23 ity of capsule 00:00: [place] [address] Medical Branch gabapentin 2021-0 Yes [facility] (Neurontin) 4-23 Health 300 MG 00:00: capsule 00 gabapentin 2021-0 Yes UT (Neurontin) 4-23 Health 300 MG 00:00: capsule 00 gabapentin 2021-0 Yes UT (Neurontin) 4-23 Health 300 MG 00:00: capsule 00 lisinopriL- 2020-0 Yes Univer s hydrochloro 4-07 ity of thiazide 00:00: [place] 2012.5 mg 00 Medical per tablet Branch lisinopriL- 2020-0 Yes Univer s hydrochloro 4-07 ity of thiazide 00:00: [place] 20-12.5 mg 00 Medical per tablet Branch lisinopriL- 0 Yes [facility] s hydrochloro 4-07 ity of thiazide 00:00: [place] 20-12.5 mg 00 Medical per tablet Branch lisinopriL- 0 Yes [facility] s hydrochloro 4-07 ity of thiazide 00:00: [place] 20-12.5 mg 00 Medical per tablet Branch [facility]riL- [facility] ity of thiazide 00:00: [place] 20-12.5 mg 00 Medical per tablet Branch lisinopriL- 0 Yes [facility] s hydrochloro 4-07 ity of thiazide 00:00: [place] 20-12.5 mg 00 Medical per tablet Branch lisinopriL- Yes [facility] hydrochloro 4-07 ity of thiazide 00:00: [place] 20-12.5 mg 00 Medical per tablet Branch lisinopriL- 0 Yes [facility] hydrochloro 4-07 ity of thiazide 00:00: [place] 20-12.5 mg 00 Medical per tablet Branch lisinopriL- 0 Yes [facility] hydrochloro 4-07 ity of thiazide 00:00: [place] 20-12.5 mg 00 Medical per tablet Branch lisinopriL- 0 Yes [facility] s hydrochloro 4-07 ity of thiazide 00:00: [place] 20-12.5 mg 00 Medical per tablet Branch lisinopriL- 0 Yes [facility] hydrochloro 4-07 ity of thiazide 00:00: [place] 20-12.5 mg 00 Medical per tablet Branch lisinopril- 0 Yes 1 tablet UT hydroCHLORO 4-07 Health thiazide 00:00: (Zestoretic 00 ) 20-12.5 MG tablet lisinopril- 2020-0 Yes 1 tablet UT hydroCHLORO 4-07 Health thiazide 00:00: (Zestoretic 00 ) 20-12.5 MG tablet lisinopril- 0 Yes 1 tablet UT hydroCHLORO 4-07 Health thiazide 00:00: (Zestoretic 00 ) 20-12.5 MG tablet thiamine 0 2020- No 50mg QD Take 0.5 Meth gwen mononitrate 3-27 04-[address] , vit B1, 00:00: 04:59 (50 mg Hospi ta (B-1) 100 00 :00 total) by l mg tablet mouth daily for 30 days. cyclobenzap 0 2020- No 10mg [id number] Take 10 mg Methodi rine 3-26 03-26 [id number] mouth [address] (FLEXERIL) 21:43: 00:00 3D (three) Hos ileana 10 MG 22 :00 times a l tablet day. celecoxib 0 Yes 200mg Q.5D Take 200 Met hodi (CeleBREX) 3-[address] 200 MG 21:43: mouth 2 Hospita capsule 19 (two) l times a day. hydroxychlo 2020-0 Yes Q.5D Take by Met hodi roquine 3-[address] (PLAQUENIL) 21:43: (two) Hospi ta 200 mg 19 times a l tablet day. PILOCARPINE Yes 7.5mg [id number] Take 7.5 Methodi HCL ORAL -[id number] 21:43: 3D mouth 3 Hospita 19 (three) l times a day. LISINOPRIL- Yes 2{tbl} QD Take 2 Me thodi HCTZ 3-[address] 20-12.5 MG 21:43: mouth Hospit a COMBO DOSE 19 daily. l exenatide Yes 2mg Q1W Inject 2 Meth gwen microsphere 3-[address] s 21:43: the skin Hospita (BYDUREON) 19 every 7 l 2 mg/0.65 days. mL pen injector aspirin Yes 81mg QD Take 81 mg Meth gwen (ECOTRIN) 3-[address] 81 MG 21:43: daily. Hospita enteric 19 l coated tablet ALPRAZolam Yes .5mg Q.5D Take 0.5 Met hodi (NIRAVAM) 3-[address] 0.5 MG 21:43: mouth 2 Hospita disintegrat 19 (two) l ing tablet times a day as needed for anxiety. cycloSPORIN Yes 1[drp] Q.5D Administer Methodi E 3-[address] (RESTASIS) 21:43: both eyes Ho spita 0.05 % 19 2 (two) l ophthalmic times a emulsion day. doxepin Yes 10mg QD Take 10 mg Meth gwen (SINEquan) 3-[address] 10 MG 21:43: nightly. Hospita capsule 19 l leflunomide 0 Yes 20mg QD Take 20 mg Methodi (ARAVA) 20 3-[address] MG tablet 21:43: nightly. Hosp ruiz 19 l atorvastati 0 Yes 10mg QD Take 10 mg Methodi n (LIPITOR) 3-[address] 10 mg 21:43: nightly. Hospita tablet 19 l lithium 300 Yes 300mg Q.[id number] Take 300 Methodi MG capsule -[id number] 21:43: 3D mouth 3 Hospita 19 (three) l times a day with meals. metFORMIN 0 Yes 1000mg Q.5D Take 1,000 [facility]i XR 3-[address] (GLUCOPHAGE 21:43: mouth 2 Hos ileana -XR) 500 mg 19 (two) l 24 hr times a tablet day with meals. sertraline Yes 50mg QD Take 50 mg M ethodi (ZOLOFT) 50 - by mouth st MG tablet 21:43: daily. Hospit a 19 l golimumab Yes Q30D Infuse Method i (SIMPONI 3-[address] ARIA IV) 21:43: venous Hospita 19 catheter l every 30 (thirty) days. insulin 0 Yes 22U [id number] Inject 22 Methodi lispro 3-[id number] (HUMALOG 21:43: 3D under the Hosp ruiz KWIKPEN 19 skin 3 l INSULIN (three) SUBQ) times a day with meals. insulin 0 Yes 11U QD Inject 11 Metho di lispro 3-[address] (HUMALOG 21:43: under the Hosp ruiz KWIKPEN 19 skin l INSULIN nightly. SUBQ) insulin 0 Yes 160U QD Inject 160 Meth gwen GLARGINE 3-[address] (Toujeo 21:43: under the Hospi ta [facility] 19 skin every l U-300 evening. Insulin) 300 unit/mL (1.5 mL) insulin pen cycloSPORIN 2020-0 Yes 1 drop UT E 3-26 into Health (Restasis) 00:00: affected 0.05 % 00 eye ophthalmic emulsion doxepin 2020-0 Yes 10mg Take 10 mg UT (SINEquan) 3-26 by mouth. Heal th 10 MG 00:00: capsule 00 hydroxychlo 2020-0 Yes 1 tablet UT roquine 3-26 with food Health (Plaquenil) 00:00: or milk 200 MG 00 tablet lithium 300 2020-0 Yes 300mg Take 300 U T MG capsule 3-26 mg by Health 00:00: mouth. 00 sertraline 1-0 Yes 50mg Take 50 mg U T (Zoloft) 50 3-26 by mouth. Hea lth MG tablet 00:00: 00 cycloSPORIN 1-0 Yes 1 drop UT E 3-26 into Health (Restasis) 00:00: affected 0.05 % 00 eye ophthalmic emulsion doxepin 2020-0 Yes 10mg Take 10 mg UT (SINEquan) 3-26 by mouth. Heal th 10 MG 00:00: capsule 00 hydroxychlo 2020-0 Yes 1 tablet UT roquine 3-26 with food Health (Plaquenil) 00:00: or milk 200 MG 00 tablet lithium 300 1-0 Yes 300mg Take 300 U T MG capsule 3-26 mg by Health 00:00: mouth. 00 sertraline 1-0 Yes 50mg Take 50 mg U T (Zoloft) 50 3-26 by mouth. Hea lth MG tablet 00:00: 00 cycloSPORIN 1-0 Yes 1 drop UT E 3-26 into Health (Restasis) 00:00: affected 0.05 % 00 eye ophthalmic emulsion doxepin 1-0 Yes 10mg Take 10 mg [facility] (SINEquan) 3-26 by mouth. Heal th 10 MG 00:00: capsule 00 hydroxychlo 1-0 Yes 1 tablet [facility] roquine 3-26 with food Health (Plaquenil) 00:00: or milk 200 MG 00 tablet lithium 300 1-0 Yes 300mg Take 300 U T MG capsule 3-26 mg by Health 00:00: mouth. 00 sertraline 2021-0 Yes 50mg Take 50 mg U T (Zoloft) 50 05-05 by mouth. Hea lth MG tablet 00:00: 00 predniSONE No 20mg QD Take 1 Meth gwen (DELTASONE) 05-05- tablet (20 s t 20 mg 00:00: 04:59 mg total) Hospit a tablet 00 :00 by mouth l daily for 5 days. suvorexant 2020- No QD Take by [facility] (BELSOMRA) 05-04- mouth st 20 mg 21:42: 00:00 nightly. Hospita tablet 42 :00 l simvastatin No 40mg QD Take 40 mg [facility] (ZOCOR) 40 05-[address] MG tablet 21:42: 00:00 nightly. Hos ileana 25 :00 l milnacipran No 50mg Q.5D Take 50 mg [facility] [...] Take 2 mg M ethodi (FOLVITE) 1 05-04- by mouth st MG tablet 21:40: 00:00 daily. Hospi ta 07 :00 l dexlansopra 2020- No 60mg QD Take 60 mg [facility] zole 05-04-[address] (DEXILANT) 21:39: 00:00 daily. Hosp ruiz 60 mg 30 :00 l capsule cranberry 2020- No 1{capsu QD Take 1 Me thodi extract 05-04 le} capsule by st (ELLURA) 21:38: 00:00 mouth Hospita 200 mg 50 :00 daily. l capsule capsule clopidogrel 75mg QD Take 75 mg [facility] (PLAVIX) 75 05-[address] mg tablet 21:38: 00:00 daily. Hospi ta 27 :00 l bromfenac No 1[drp] QD Administer [facility] (XIBROM) 05-[address] 0.09 % 21:37: 00:00 into the Hospit a ophthalmic 23 :00 left eye l solution daily. ARIPiprazol 20mg QD Take 20 mg [facility] e (ABILIFY) 05-[address] 10 MG 21:36: 00:00 daily. Hospita tablet 49 :00 l Amoxicillin Amoxicillin No Luciano [address] [facility] - 00:[facility]: [facility]:00 [facility] 00 :00 [facility] atorvastati Yes 1 tablet [facility] n (Lipitor) 8-20 Health 10 MG 00:00: tablet 00 atorvastati Yes 1 tablet [facility] n (Lipitor) 8-20 Health 10 MG 00:00: tablet 00 atorvastati 0 Yes 1 tablet [facility] n (Lipitor) 8-20 Health 10 MG 00:00: tablet 00 Furosemide Furosemide Yes Luciano 0.[address] [facility] 5[facility]01 [facility] - 00:[facility]: [facility] 00 [facility] Hydrocodone Hydrocodone 2017-02 Yes Luciano [address] [facility] -Acetaminop -Acetaminop 0-01 [facility] - [facility] hen 00:00: [facility]oria 00 [facility] Tolterodine Tolterodine Yes SHEFALI 1 PO QD Univers Tartrate ER Tartrate ER 4-30 [facility] ity of 4 MG Oral 4 MG Oral 00:00: N.P. Lionel as Capsule Capsule 00 Physici Extended Extended ans Release 24 Release 24 Hour Hour sulfamethox Yes 1{tbl} Take 1 Un emanuel azole-trime 7-31 tablet by ity of thoprim 00:00: mouth [place] 800-160 mg 00 every 12 Medic al per tablet (twelve) Branc h hours. sulfamethox 2017-0 Yes 1{tbl} Take 1 Un emanuel azole-trime 7-31 tablet by ity of thoprim 00:00: mouth [place] 800-160 mg 00 every 12 Medic al per tablet (twelve) Branc h hours. sulfamethox 2017-0 Yes 1{tbl} Take 1 Un emanuel azole-trime 7-31 tablet by ity of thoprim 00:00: mouth [place] 800-160 mg 00 every 12 Medic al per tablet (twelve) Branc h hours. sulfamethox 2017-0 Yes 1{tbl} Take 1 Un emanuel azole-trime 7-31 tablet by ity of thoprim 00:00: mouth [place] 800-160 mg 00 every 12 Medic al per tablet (twelve) Branc h hours. sulfamethox 2017-0 Yes 1{tbl} Take 1 Un emanuel azole-trime 7-31 tablet by ity of thoprim 00:00: mouth [place] 800-160 mg 00 every 12 Medic al per tablet (twelve) Branc h hours. sulfamethox 2017-0 Yes 1{tbl} Take 1 Un emanuel azole-trime 7-31 tablet by ity of thoprim 00:00: mouth [place] 800-160 mg 00 every 12 Medic al per tablet (twelve) Branc h hours. sulfamethox 2017-0 Yes 1{tbl} Take 1 Un emanuel azole-trime 7-31 tablet by ity of thoprim 00:00: mouth [place] 800-160 mg 00 every 12 Medic al per tablet (twelve) Branc h hours. sulfamethox 2017-0 Yes 1{tbl} Take 1 Un emanuel azole-trime 7-31 tablet by ity of thoprim 00:00: mouth [place] 800-160 mg 00 every 12 Medic al per tablet (twelve) Branc h hours. sulfamethox 2017-0 Yes 1{tbl} Take 1 Un emanuel azole-trime 7-31 tablet by ity of thoprim 00:00: mouth [place] 800-160 mg 00 every 12 Medic al per tablet (twelve) Branc h hours. sulfamethox 2017-0 Yes 1{tbl} Take 1 Un emaneul azole-trime 7-31 tablet by ity of thoprim 00:00: mouth [place] 800-160 mg 00 every 12 Medic al per tablet (twelve) Branc h hours. sulfamethox 2017-0 Yes 1{tbl} Take 1 Un emanuel azole-trime 7-31 tablet by ity of thoprim 00:00: mouth [place] 800-160 mg 00 every 12 Medic al per tablet (twelve) Branc h hours. simvastatin 2017-0 Yes 40mg Take 40 mg Univers 40 mg 6-15 by mouth ity of tablet 18:18: at [place] [address] bedtime. Medical Branch traZODONE 20170 Yes 100mg Take Univers 100 mg 6-15 100-200 mg ity of tablet 18:18: by mouth [place] 54 at bedtime Medical as needed Branch for Insomnia. ARIPiprazol Yes 20mg Take 20 mg Univers e (ABILIFY) 6-15 by mouth ity of 20 mg 18:18: at [place] [address] bedtime. Medical Branch suvorexant Yes 20mg Take 20 mg U nivers (BELSOMRA) 6-15 by mouth ity o f 20 mg Tab 18:18: at [place] [address] bedtime. Medical Branch prednisoLON 2017-0 Yes 1[drp] 1 Drop Un emanuel E acetate 1 6-15 every 2 ity o f % 18:18: (two) [place] ophthalmic 54 hours as Medic al suspension needed for Bra nch drops Itching. foLIC acid Yes 2mg Take 2 mg Un emanuel 1 mg tablet 6-15 by mouth ity of 18:18: daily. [place] [address] Medical Branch simvastatin 2017-0 Yes 40mg Take 40 mg Univers 40 mg 6-15 by mouth ity of tablet 18:18: at [place] [address] bedtime. Medical Branch traZODONE 2017-0 Yes 100mg Take Univers 100 mg 6-15 100-200 mg ity of tablet 18:18: by mouth [place] 54 at bedtime Medical as needed Branch for Insomnia. ARIPiprazol 20170 Yes 20mg Take 20 mg Univers e (ABILIFY) 6-15 by mouth ity of 20 mg 18:18: at [place] [address] bedtime. Medical Branch suvorexant 20170 Yes 20mg Take 20 mg U nivers (BELSOMRA) 6-15 by mouth ity o f 20 mg Tab 18:18: at [place] [address] bedtime. Medical Branch prednisoLON 2017-0 Yes 1[drp] 1 Drop Un emanuel E acetate 1 6-15 every 2 ity o f % 18:18: (two) [place] ophthalmic 54 hours as Medic al suspension needed for Bra nch drops Itching. foLIC acid 20170 Yes 2mg Take 2 mg Un emanuel 1 mg tablet 6-15 by mouth ity of 18:18: daily. [place] [address] Medical Branch simvastatin 2017-0 Yes 40mg Take 40 mg Univers 40 mg 6-15 by mouth ity of tablet 18:18: at [place] [address] bedtime. Medical Branch traZODONE 20170 Yes 100mg Take Univers 100 mg 6-15 100-200 mg ity of tablet 18:18: by mouth [place] [address] at bedtime Medical as needed Branch for Insomnia. ARIPiprazol Yes 20mg Take 20 mg Univers e (ABILIFY) 6-15 by mouth ity of 20 mg 18:18: at [place] [address] bedtime. Medical Branch suvorexant 0 Yes 20mg Take 20 mg U nivers (BELSOMRA) 6-15 by mouth ity o f 20 mg Tab 18:18: at [place] [address] bedtime. Medical Branch prednisoLON 20170 Yes 1[drp] 1 Drop Un emanuel E acetate 1 6-15 every 2 ity o f % 18:18: (two) [place] ophthalmic 54 hours as Medic al suspension needed for Bra nch drops Itching. foLIC acid 20170 Yes 2mg Take 2 mg Un emanuel 1 mg tablet 6-15 by mouth ity of 18:18: daily. [place] [address] Medical Branch simvastatin 2017-0 Yes 40mg Take 40 mg Univers 40 mg 6-15 by mouth ity of tablet 18:18: at [place] [address] bedtime. Medical Branch traZODONE 20170 Yes 100mg Take Univers 100 mg 6-15 100-200 mg ity of tablet 18:18: by mouth [place] [address] at bedtime Medical as needed Branch for Insomnia. ARIPiprazol 20170 Yes 20mg Take 20 mg Univers e (ABILIFY) 6-15 by mouth ity of 20 mg 18:18: at [place] [address] bedtime. Medical Branch suvorexant 20170 Yes 20mg Take 20 mg U nivers (BELSOMRA) 6-15 by mouth ity o f 20 mg Tab 18:18: at [place] [address] bedtime. Medical Branch prednisoLON 20170 Yes 1[drp] 1 Drop Un emanuel E acetate 1 6-15 every 2 ity o f % 18:18: (two) [place] ophthalmic 54 hours as Medic al suspension needed for Bra nch drops Itching. foLIC acid 2017 Yes 2mg Take 2 mg Un emanuel 1 mg tablet 6-15 by mouth ity of 18:18: daily. [place] [address] Medical Branch simvastatin 20170 Yes 40mg Take 40 mg Univers 40 mg 6-15 by mouth ity of tablet 18:18: at [place] [address] bedtime. Medical Branch traZODONE 2017 Yes 100mg Take Univers 100 mg 6-15 100-200 mg ity of tablet 18:18: by mouth [place] [address] at bedtime Medical as needed Branch for Insomnia. ARIPiprazol Yes 20mg Take 20 mg Univers e (ABILIFY) 6-15 by mouth ity of 20 mg 18:18: at [place] [address] bedtime. Medical Branch suvorexant Yes 20mg Take 20 mg U nivers (BELSOMRA) 6-15 by mouth ity o f 20 mg Tab 18:18: at [place] [address] bedtime. Medical Branch prednisoLON 20170 Yes 1[drp] 1 Drop Un emanuel E acetate 1 6-15 every 2 ity o f % 18:18: (two) [place] ophthalmic 54 hours as Medic al suspension needed for Bra nch drops Itching. foLIC acid Yes 2mg Take 2 mg Un emanuel 1 mg tablet 6-15 by mouth ity of 18:18: daily. [place] [address] Medical Branch simvastatin 20170 Yes 40mg Take 40 mg Univers 40 mg 6-15 by mouth ity of tablet 18:18: at [place] [address] bedtime. Medical Branch traZODONE 20170 Yes 100mg Take Univers 100 mg 6-15 100-200 mg ity of tablet 18:18: by mouth [place] [address] at bedtime Medical as needed Branch for Insomnia. ARIPiprazol Yes 20mg Take 20 mg Univers e (ABILIFY) 6-15 by mouth ity of 20 mg 18:18: at [place] [address] bedtime. Medical Branch suvorexant 2017-0 Yes 20mg Take 20 mg U nivers (BELSOMRA) 6-15 by mouth ity o f 20 mg Tab 18:18: at [place] [address] bedtime. Medical Branch prednisoLON 2017-0 Yes 1[drp] 1 Drop Un emanuel E acetate 1 6-15 every 2 ity o f % 18:18: (two) [place] ophthalmic 54 hours as Medic al suspension needed for Bra nch drops Itching. foLIC acid 2017-0 Yes 2mg Take 2 mg Un emanuel 1 mg tablet 6-15 by mouth ity of 18:18: daily. [place] [address] Medical Branch foLIC acid 2017-0 Yes 2mg Take 2 mg Un emanuel 1 mg tablet 6-15 by mouth ity of 13:18: daily. [place] [address] Medical Branch simvastatin 2017-0 Yes 40mg Take 40 mg Univers 40 mg 6-15 by mouth ity of tablet 13:18: at [place] [address] bedtime. Medical Branch traZODONE 20170 Yes 100mg Take Univers 100 mg 6-15 100-200 mg ity of tablet 13:18: by mouth [place] [address] at bedtime Medical as needed Branch for Insomnia. ARIPiprazol 20170 Yes 20mg Take 20 mg Univers e (ABILIFY) 6-15 by mouth ity of 20 mg 13:18: at [place] [address] bedtime. Medical Branch suvorexant 2017-0 Yes 20mg Take 20 mg U nivers (BELSOMRA) 6-15 by mouth ity o f 20 mg Tab 13:18: at [place] [address] bedtime. Medical Branch prednisoLON 2017-0 Yes 1[drp] 1 Drop Un emanuel E acetate 1 6-15 every 2 ity o f % 13:18: (two) [place] ophthalmic 54 hours as Medic al suspension needed for Bra nch drops Itching. foLIC acid 2017-0 Yes 2mg Take 2 mg Un emanuel 1 mg tablet 6-15 by mouth ity of 13:18: daily. [place] [address] Medical Branch simvastatin 2017-0 Yes 40mg Take 40 mg Univers 40 mg 6-15 by mouth ity of tablet 13:18: at [place] [address] bedtime. Medical Branch traZODONE 2017-0 Yes 100mg Take Univers 100 mg 6-15 100-200 mg ity of tablet 13:18: by mouth [place] [address] at bedtime Medical as needed Branch for Insomnia. ARIPiprazol 20170 Yes 20mg Take 20 mg Univers e (ABILIFY) 6-15 by mouth ity of 20 mg 13:18: at [place] [address] bedtime. Medical Branch suvorexant 20170 Yes 20mg Take 20 mg U nivers (BELSOMRA) 6-15 by mouth ity o f 20 mg Tab 13:18: at [place] [address] bedtime. Medical Branch prednisoLON 2017 Yes 1[drp] 1 Drop Un emanuel E acetate 1 6-15 every 2 ity o f % 13:18: (two) [place] ophthalmic 54 hours as Medic al suspension needed for Bra nch drops Itching. foLIC acid 2017 Yes 2mg Take 2 mg Un emanuel 1 mg tablet 6-15 by mouth ity of 13:18: daily. [place] [address] Medical Branch simvastatin 2017-0 Yes 40mg Take 40 mg Univers 40 mg 6-15 by mouth ity of tablet 13:18: at [place] [address] bedtime. Medical Branch traZODONE 20170 Yes 100mg Take Univers 100 mg 6-15 100-200 mg ity of tablet 13:18: by mouth [place] [address] at bedtime Medical as needed Branch for Insomnia. ARIPiprazol Yes 20mg Take 20 mg Univers e (ABILIFY) 6-15 by mouth ity of 20 mg 13:18: at [place] [address] bedtime. Medical Branch suvorexant Yes 20mg Take 20 mg U nivers (BELSOMRA) 6-15 by mouth ity o f 20 mg Tab 13:18: at [place] [address] bedtime. Medical Branch prednisoLON 2017 Yes 1[drp] 1 Drop Un emanuel E acetate 1 6-15 every 2 ity o f % 13:18: (two) [place] ophthalmic 54 hours as Medic al suspension needed for Bra nch drops Itching. foLIC acid 2017-0 Yes 2mg Take 2 mg Un emanuel 1 mg tablet 6-15 by mouth ity of 13:18: daily. [place] [address] Medical Branch simvastatin 2017-0 Yes 40mg Take 40 mg Univers 40 mg 6-15 by mouth ity of tablet 13:18: at [place] [address] bedtime. Medical Branch traZODONE 2017-0 Yes 100mg Take Univers 100 mg 6-15 100-200 mg ity of tablet 13:18: by mouth [place] [address] at bedtime Medical as needed Branch for Insomnia. ARIPiprazol 2017- Yes 20mg Take 20 mg Univers e (ABILIFY) 6-15 by mouth ity of 20 mg 13:18: at [place] [address] bedtime. Medical Branch suvorexant 20170 Yes 20mg Take 20 mg U nivers (BELSOMRA) 6-15 by mouth ity o f 20 mg Tab 13:18: at [place] [address] bedtime. Medical Branch prednisoLON 2017 Yes 1[drp] 1 Drop Un emanuel E acetate 1 6-15 every 2 ity o f % 13:18: (two) [place] ophthalmic 54 hours as Medic al suspension needed for Bra nch drops Itching. foLIC acid 2017 Yes 2mg Take 2 mg Un emanuel 1 mg tablet 6-15 by mouth ity of 13:18: daily. [place] [address] Medical Branch simvastatin 2017 Yes 40mg Take 40 mg Univers 40 mg 6-15 by mouth ity of tablet 13:18: at [place] [address] bedtime. Medical Branch traZODONE 2017 Yes 100mg Take Univers 100 mg 6-15 100-200 mg ity of tablet 13:18: by mouth [place] [address] at bedtime Medical as needed Branch for Insomnia. ARIPiprazol Yes 20mg Take 20 mg Univers e (ABILIFY) 6-15 by mouth ity of 20 mg 13:18: at [place] [address] bedtime. Medical Branch suvorexant Yes 20mg Take 20 mg U nivers (BELSOMRA) 6-15 by mouth ity o f 20 mg Tab 13:18: at [place] [address] bedtime. Medical Branch prednisoLON Yes 1[drp] 1 Drop Un emanuel E acetate 1 6-15 every 2 ity o f % 13:18: (two) [place] ophthalmic 54 hours as Medic al suspension needed for Bra nch drops Itching. Zetia No Notes: Memoria 08-10 (Same as: l 14:00: Zetia) Dexilant 0 No 60 mg, Memoria 08-10 Route: PO, l 14:00: Drug form: DRC, Daily, Dosing Weight 134.5, kg, Start date: 08/11/15 9:00:00 CDT, Duration: 30 day, Stop date: 09/09/15 9:00:00 CDT Nuvigil 2015-0 No 250 mg, Memoria 08-10 Route: PO, l 14:00: Drug form: [place] 00 TAB, Daily, Dosing Weight 134.5, kg, Start date: 08/11/15 9:00:00 CDT, Duration: 30 day, Stop date: 09/09/15 9:00:00 CDT Abilify 2015-0 No 20 mg, Memoria 08-10 Route: PO, l 14:00: Drug form: [place] 00 TAB, Daily, Dosing Weight 134.5, kg, Start date: 08/11/15 9:00:00 CDT, Duration: 30 day, Stop date: 09/09/15 9:00:00 CDT Deplin 2015-0 No 15 mg, Memoria 08-10 Route: PO, l 14:00: Drug form: [place] 00 CAP, Daily, Dosing Weight 134.5, kg, [...] day, Stop date: 09/09/15 9:00:00 CDT Savella 2015-0 No 50 mg, Memoria 630 Route: PO, l 22:00: Drug form: [place] 00 TAB, BID, Dosing Weight 134.5, kg, Start date: 08/10/15 17:00:00 CDT Ketorolac 2015-0 No 4 days Memor ia 6-30 l 17:00: MEDICATION [place] 00 WASTE Product Size: 30 mg Product Wasted: _15__ mg Insulin, No Notes: Memoria Aspart, 6-30 Roll in l Human 16:29: palms of [place] 00 hands gently; Do not shake vigorously . (Same as: NovoLOG) "single patient use only" WASTE: F/P - Black; E - Municipal Trash Bin Stable for 28 days at room temperatur e. Expires in days from ____Date Levalbutero No Notes: SEE Memoria l 6-30 RT l 16:29: DOCUMENTAT [place] 00 ION (Same as:Xopenex ) Non-Formul george Naloxone No Notes: Memoria 6-30 Same as l 16:29: Narcan Meperidine No Notes: Memor ia 6-30 (Same as: l 16:29: Demerol) "Use Precaution in Elderly, Seizure disorders, and Renal impairment " Promethazin No Notes: Do M emoria e 6-30 not give l 16:29: IV push. (Same as: Phenergan) Dexamethaso No Notes: Alon[place] summer ne 6-30 Concentrat l 16:29: ion: [place] 00 4mg/ml Ondansetron No Notes: [place] summer 6-30 (Same as: l 16:29: Zofran) MEDICATION WASTE Product Size: 4 mg Product Wasted: ___ mg Diphenhydra No Notes: [place] summer mine 6-30 (Same as: l 16:29: Benadryl) Albuterol No Notes: SEE Me moria 0.83 MG/ML 6-30 RT l Inhalant 16:29: DOCUMENTAT Her brito Solution ION (Same as: Proventil) Atropine No Notes: Mem oria 6-30 MEDICATION l 16:29: WASTE Product Size: 0.4 mg Product Wasted: _0.2__ mg Glycopyrrol No Notes: [place] summer ate 6-30 (Same as: l 16:29: Robinul) Phenylephri No Notes: [place] summer ne 6-30 Same as: l 16:29: Erik-Syneph rine Albuterol No Notes: Memori a 0.833 MG/ML 6-30 (Same as: l / 16:29: Duoneb) [place] Ipratropium 00 Gordon 0.167 MG/ML Inhalant Solution [DuoNeb] celecoxib Yes Notes: Memori a 6-30 NSAID. l 16:29: Please [place] 00 check indication . Not for seizure. (Same As: CeleBREX) 72 HR Yes Notes: Memoria Scopolamine 6-30 Change l 0.0139 16:29: patch [place] MG/HR 00 every 72 Transdermal hours Patch (Same as: Transderm- Scop) Midazolam No Notes: Memori a 6-30 (Same as: l 16:29: Versed) MEDICATION WASTE Product Size: 2 mg Product Wasted: _1__ mg Ephedrine No Notes: Memori a 6-30 (Same as: l 16:29: ePHEDrine [place] 00 Sulfate) Flumazenil No Notes: Memor ia 6-30 (Same as: l 16:29: Romazicon) Calcium No 1,000 mL, Memor ia Chloride 30 Rate: 125 l 0.0014 16:29: ml/hr, [place] MEQ/ML / 00 Infuse Potassium over: 8 Chloride hr, Route: 0.004 IV, Dosing MEQ/ML / Weight Sodium 134.5 kg, Chloride Total 0.103 Volume: MEQ/ML / 1,000, Sodium Start Lactate date: 0.028 16 MEQ/ML 11:29:00 Injectable CDT, Solution Duration: 30 [...] Notes: Memoria 6-30 (Same l 16:29: as:MORPhin [place] 00 e Sulfate) Fentanyl No Notes: Memoria 6-30 (Same as: l 16:29: Sublimaze) Preservat mago free. Oxycodone No Notes: Memori a 6-30 (Same as: l 16:29: Roxicodone ) Hydromorpho No Notes: [place] summer ne 6-30 (Same as: l 16:29: Dilaudid) Acetaminoph No Notes: Alon[place] summer en 6-30 Infuse l 16:29: over 15 minutes Do not exceed 4gm/day of acetaminop [...] Notes: Alonzo summer en 325 MG / -30 (Same as: l Hydrocodone 16:24: [place] Judith nn Bitartrate 00 325/5) Do 5 [...] lidocaine No Route: IV, Me moria (ANES) 08-09 Drug form: l 15:45: INJ, ONCE, Stop date: 08/10/15 10:45:00 CDT fentaNYL No Route: IV, Mem oria (ANES) 08-09 Drug form: l 15:45: INJ, ONCE, Stop date: 08/10/15 10:45:00 CDT midazolam No Route: IV, Me moria (ANES) 08-09 Drug form: l 15:45: SOLN, ONCE, Stop date: 08/10/15 10:45:00 CDT ePHEDrine No Route: IV, Me moria (ANES) 08-09 Drug form: l 15:40: INJ, ONCE, Stop date: 08/10/15 10:40:00 CDT ceFAZolin No Route: IV, Me moria (ANES) 08-09 Drug form: l 15:34: INJ, ONCE, Stop date: 08/10/15 10:34:00 CDT LR 1000 mL No Route: IV, M emoria INJ (ANES) 08-09 Total l 14:51: Volume: [place] 00 1,000, Start date: 08/10/15 9:51:00 CDT, Stop date: 08/10/15 10:51:00 CDT Insulin, No Notes: Memoria Aspart, 08-09 Roll in l Human 13:01: palms of [place] 00 hands gently; Do not shake vigorously . (Same as: NovoLOG) "single patient use only" WASTE: F/P - Black; E - Municipal Trash Bin Stable for 28 days at room temperatur e. Expires in days from ____Date 200 ACTUAT No Notes: Memor ia Albuterol 6-30 Same as: l 0.09 13:01: Ventolin [place] MG/ACTUAT 00 HFA Metered WASTE: Dose Aerosol - Inhaler Return to Pharmacy Calcium No 1,000 mL, Memor ia Chloride 630 Rate: 25 l 0.0014 13:01: ml/hr, [place] MEQ/ML / 00 Infuse Potassium over: 40 Chloride hr, Route: 0.004 IV, Dosing MEQ/ML / Weight Sodium 134.091 Chloride kg, Total 0.103 Volume: MEQ/ML / 1,000, Sodium Start Lactate date: 0.08/10/15 MEQ/ML 8:01:00 Injectable CDT, Solution Duration: 30 day, Stop date: 09/09/15 8:00:00 CDT BD Normal No Notes: Memori a Saline 6-30 (Same as: l Flush 11:00: BD [place] 00 Posiflush) Ancef No Notes: Memoria 6-30 [...] Daily, 0 [place] [Zetia] 00 Refill(s) Milnacipran Yes 50 mg = 1 M emoria hydrochlori 6-23 tab, PO, l de 50 MG 14:56: BID, # 60 Herm archana Oral Tablet 00 tab, 3 [Savella] Refill(s) aripiprazol Yes 20 mg = 1 M emoria e 20 MG 6-23 tab, PO, l Oral Tablet 14:56: Daily, 0 [place] [Abilify] 00 Refill(s) Tresiba 2015-0 Yes SUB-Q, Memoria FlexTouch 6-23 Daily, 0 [...] roquine 6-23 PO, Daily, l 14:53: 0 [place] 00 Refill(s) celecoxib Yes 200 mg = 1 Me moria 200 MG Oral 6-23 cap, PO, l Capsule 14:52: BID, 0 [place] [Celebrex] 00 Refill(s) Methotrexat Yes 0 Memori a e 6-23 Refill(s) l 14:52: [place] 00 Methotrexat Yes INTRATHECA Memoria e Sodium, 6-23 L, ONCE, 0 l Preservativ 14:52: Refill(s) H ermann e Free 25 00 mg/mL injectable solution Folic Acid Yes 1 mg = 1 Mem oria 1 MG Oral 6-23 tab, PO, l Tablet 14:51: Daily, 0 [place] 00 Refill(s) Celebrex Celebrex Yes Luc[place] 1 [...] I [facility] Guaifenesin Guaifenesin Yes [place] [address] [facility] -Codeine -Codeine [facility] needed [facility] Atorvastati Atorvastati Yes [place] [address] [facility] n Calcium n Calcium [facility] Omeprazole Omeprazole Yes Luc[facility] [address] [facility] Breo Breo Yes [facility] [address] [facility] Ellipta Ellipta [facility] Trazodone Trazodone Yes [facility] [address] [facility] HCl HCl [facility] at bedtime [facility] Yungumatthias Eller Yes Luciano not [facility] SoloStar SoloStar [facility] defined [facility] - [facility] Tolterodine Tolterodine Yes Luciano [address] [facility] [address] Tartrate ER Tartrate ER [facility] Hemocyte Hemocyte Yes [place] [address] [facility] Plus Plus [facility] Folic Acid Folic Acid Yes [place] [address] [facility] MetFORMIN MetFORMIN Yes [place] [address] [facility] HCl ER HCl ER [facility] at night [facility] Metformin Metformin Yes [place] [address] [facility] HCl HCl [facility] with a [facility] - meal in [facility]oria the l morning [facility] Saphris Saphris Yes [facility] [address] [facility] under the [facility] - tongue and [facility]oria allow to l dissolve [facility] Paxil Paxil Yes [facility] [address] [facility] in [facility] - morning [facility] Colace Colace Yes [facility] [address] [facility] needed [facility] Abilify 20 Abilify 20 Yes [...] rs HCl TABS HCl TABS [facility] [place] [facility] Tresiba Tresiba Yes Univers FlexTouch FlexTouch ity o f SOPN SOPN [place] [facility] Bydureon Bydureon Yes Univers PEN PEN [facility] [place] [facility] Vital Signs Vital Name Observation Time Observation Value Comments Source Systolic blood 2020-12-03 127 mm[Hg] [facility] pressure 19:16:00 [facility] Diastolic blood 2020-12-03 84 mm[Hg] University o f pressure :16:00 [facility] Heart rate 2020-12-03 85 /min University of :16:00 [facility] Body temperature 2020-12-03 36.5 Teresa University of :16:00 [facility] Respiratory rate 2020-12-03 16 /min University of :16:00 [facility] Body height 2020-12-03 180.3 cm University of :16:00 [facility] Body weight 2020-12-03 113.399 kg University of 19:16:00 [facility] BMI 2020-12-03 34.87 kg/m2 University of 19:16:00 [facility] Oxygen saturation 2020-12-03 97 /min [facility] in Arterial blood 19:16:00 [facility] by Pulse oximetry Branch Systolic blood 2020-11-24 160 mm[Hg] [facility] pressure 19:16:00 Diastolic blood 2020-11-24 84 mm[Hg] [facility] pressure 19:16:00 Body temperature 2020-11-24 36.28 [facility] 19:16:00 Body height 2020-11-24 180.3 cm [facility] 19:16:00 Body weight 2020-11-24 111.131 kg [facility] 19:16:00 BMI 2020-11-24 34.17 kg/m2 [facility] 19:16:00 Systolic blood 2020-06-21 148 mm[Hg] University of pressure 20:01:00 [facility] Diastolic blood 2020-06-21 85 mm[Hg] University o f pressure 20:01:00 [facility] Heart rate 2020-06-21 83 /min University 20:01:00 [facility] Body temperature 2020-06-21 36.94 Teresa University 20:01:00 [facility] Respiratory rate 2020-06-21 18 /min University 20:01:00 [facility] Body height 2020-06-21 180.3 cm University of 20:01:00 [facility] Body weight 2020-06-21 131.271 kg University 20:01:00 [facility] BMI 2020-06-21 40.36 kg/m2 University of 20:01:00 [facility] Systolic blood 2020-06-22 144 mm[Hg] [facility] pressure 15:10:00 [facility] Diastolic blood 2020-06-22 65 mm[Hg] [facility] pressure 15:10:00 Hospital Heart rate 2020-06-22 88 /min [facility] 15:10:00 Hospital Body temperature 2020-06-22 36.22 Teresa [facility] 15:10:00 Hospital Body height 2020-06-22 180.3 cm [facility] 15:10:00 Hospital Respiratory rate 2020-05-05 16 /min [facility] 20:27:41 Hospital Oxygen saturation 2020-05-05 98 /min [facility] in Arterial blood 20:27:41 Hospital by Pulse oximetry Body weight 2020-05-04 128.187 kg [facility] 22:05:46 Hospital BMI 2020-05-04 39.41 kg/m2 [facility] 22:05:46 Hospital BP Systolic 2017-09-03 130 mm[Hg] Location: NAIN; [facility] 11:02:00 Position: [place] [facility] BP Diastolic 2017-09-03 80 mm[Hg] Location: NAIN; [facility] 11::00 Position: [place] [facility] Height 2017-09-03 71 [in_us] University 11:02:00 [place] [facility] Weight 2017-09-03 298 [lb_av] University of 11:02:00 [place] [facility] Body Mass Index 2017-09-03 41.56 kg/m2 University o f Calculated 11:02:00 [place] [facility] Temperature 2017-09-03 97.8 [degF] University of 11:02:00 [place] [facility] BP Systolic 2017-08-27 108 mm[Hg] Location: NAIN; [facility] 14:27:00 Position: [place] [facility] BP Diastolic 2017-08-27 70 mm[Hg] Location: NAIN; [facility] 14:27:00 Position: [place] [facility] Height 2017-08-27 71 [in_us] University of 14:27:00 [place] [facility] Weight 2017-08-27 298 [lb_av] University of 14:27:00 [place] [facility] Body Mass Index 2017-08-27 41.56 kg/m2 University o f Calculated 14:27:00 [place] [facility] Temperature 2017-08-27 97.9 [degF] University of 14:27:00 [place] [facility] BP Systolic 2017-08-21 130 mm[Hg] Location: NAIN; [facility] 10:23:00 Position: [place] [facility] BP Diastolic 2017-08-21 84 mm[Hg] Location: NAIN; [facility] 10:23:00 Position: [place] [facility] Height 2017-08-21 71 [in_us] University 10:23:00 [place] [facility] Weight 2017-08-21 298 [lb_av] University of 10:23:00 [place] [facility] Body Mass Index 2017-08-21 41.56 kg/m2 University o f Calculated 10:23:00 [place] [facility] BP Systolic 2017-08-14 150 mm[Hg] Location: NAIN; [facility] 10:53:00 Position: [place] [facility] BP Diastolic 2017-08-14 72 mm[Hg] Location: NAIN; [facility] 10:53:00 Position: [place] [facility] Height 2017-08-14 71 [in_us] University 10:53:00 [place] [facility] Weight 2017-08-14 298 [lb_av] University of 10:53:00 [place] [facility] Body Mass Index 2017-08-14 41.56 kg/m2 University o f Calculated 10:53:00 [place] [facility] Temperature 2017-08-14 98.8 [degF] University 10:53:00 [place] [facility] BP Systolic 2017-07-31 132 mm[Hg] Location: NAIN; [facility] 13:51:00 Position: [place] [facility] BP Diastolic 2017-07-31 68 mm[Hg] Location: TED; [facility] 13:51:00 Position: [place] [facility] Height 2017-07-31 71 [in_us] University 13:51:00 [place] [facility] Weight 2017-07-31 298 [lb_av] University 13:51:00 [place] [facility] Body Mass Index 2017-07-31 41.56 kg/m2 University o f Calculated 13:51:00 [place] [facility] Temperature 2017-07-31 98.2 [degF] University of 13:51:00 [place] [facility] BP Systolic 2017-07-24 122 mm[Hg] Location: NAIN; [facility] 13:30:00 Position: [place] [facility] BP Diastolic 2017-07-24 72 mm[Hg] Location: TED; [facility] 13:30:00 Position: [place] [facility] Height 2017-07-24 71 [in_us] University of 13:30:00 [place] [facility] Weight 2017-07-24 298 [lb_av] University of 13:30:00 [place] [facility] Body Mass Index 2017-07-24 41.56 kg/m2 University o f Calculated 13:30:00 [place] [facility] Temperature 2017-07-24 98.4 [degF] University of 13:30:00 [place] [facility] BP Systolic 2017-07-17 110 mm[Hg] Location: NAIN; [facility] 14:32:00 Position: [place] [facility] BP Diastolic 2017-07-17 80 mm[Hg] Location: NAIN; [facility] 14:32:00 Position: [place] [facility] Height 2017-07-17 71 [in_us] University 14:32:00 [place] [facility] Weight 2017-07-17 298 [lb_av] University of 14:32:00 [place] [facility] Body Mass Index 2017-07-17 41.56 kg/m2 University o f Calculated 14:32:00 [place] [facility] BP Systolic 2017-07-03 142 mm[Hg] Location: NAIN; [facility] :36:00 Position: [place] [facility] BP Diastolic 2017-07-03 80 mm[Hg] Location: NAIN; [facility] :36:00 Position: [place] [facility] Height 2017-07-03 71 [in_us] [facility] 09:36:00 [place] [facility] Weight 2017-07-03 298 [lb_av] University 09:36:00 [place] [facility] Body Mass Index 2017-07-03 41.56 kg/m2 University o f Calculated 09:36:00 [place] [facility] Temperature 2017-07-03 97.4 [degF] [place] of 09:36:00 [place] [facility] BP Systolic 2017-06-19 140 mm[Hg] Location: NAIN; [facility] 15:26:00 Position: [place] [facility] BP Diastolic 2017-06-19 80 mm[Hg] Location: NAIN; [facility] 15:26:00 Position: [place] [facility] Height 2017-06-19 71 [in_us] University 15:26:00 [place] [facility] Weight 2017-06-19 298 [lb_av] University 15:26:00 [place] [facility] Body Mass Index 2017-06-19 41.56 kg/m2 University o f Calculated 15:26:00 [place] [facility] Temperature 2017-06-19 97.9 [degF] University of 15:26:00 [place] [facility] BP Systolic 2017-06-12 118 mm[Hg] Location: NAIN; [facility] 13:28:00 Position: [place] [facility] BP Diastolic 2017-06-12 80 mm[Hg] Location: NAIN; [facility] :28:00 Position: [place] [facility] Height 2017-06-12 71 [in_us] University 13:28:00 [place] [facility] Weight 2017-06-12 298 [lb_av] University of :28:00 [place] [facility] Body Mass Index 2017-06-12 41.56 kg/m2 University o f Calculated 13:28:00 [place] [facility] BP Systolic 2017-06-09 160 mm[Hg] Location: NAIN; [facility] 09:20:00 Position: [place] [facility] BP Diastolic 2017-06-09 92 mm[Hg] Location: NAIN; [facility] 09:20:00 Position: [place] [facility] Height 2017-06-09 71 [in_us] [facility] 09:20:00 [place] [facility] Weight 2017-06-09 298 [lb_av] [facility] 09:20:00 [place] [facility] Body Mass Index 2017-06-09 41.56 kg/m2 University o f Calculated 09:20:00 [place] [facility] Temperature 2017-06-09 98.2 [degF] [facility] 09:20:00 [place] [facility] Respitory Rate 2016-04-01 [facility] He rmann 17:45:00 Diastolic (mm Hg) 2015-08-10 Chrystal montanoann 17:45:00 BMI Calculated 2015-08-10 Chrystal Ashton archana 13:14:00 Weight 2015-08-10 Chrystal Padilla n 13:14:00 Temperature Oral 2015-08-03 98.5 F Chrystal Morin rmarchana (F) 14:50:00 Height 2015-08-03 180.34 cm Chrystal Padilla n 13:51:00 Procedures Procedure Date / Time Performing Clinician Source Performed NOTICE OF PRIVACY 2020-12-18 16:26:34 Doctor Unassigned, [facility] [facility] CONSENT/REFUSAL FOR 2020-12-18 16:25:51 Doctor Unassigned, [facility] DIAGNOSIS AND TREATMENT [place] [facility] ASSIGNMENT OF BENEFITS 2020-12-18 16:25:20 Doctor Unassgiorgio, [facility] [facility] REFERRAL- REQUEST/RESPONSE 2020-12-08 05:01:00 Doctor Unassigned , [facility] [place] [facility] EKG-12 LEAD 2020-12-03 20:44:28 Greg Peacock [facility] NOTICE OF PRIVACY 2020-12-03 19:10:09 Doctor Unassigned, [facility] [facility] MRI BRAIN W WO CONTRAST 2020-05-05 18:29:00 Vidal Ortiz [facility] POC GLUCOSE 2020-05-05 17:10:00 Rafaela Minor [facility] spital TTE COMPLETE, WO CONTRAST, 2020-05-05 15:22:[address] [facility] W AGITATED SALINE ([id number]) POC GLUCOSE 2020-05-05 12:19:00 Chloe Minor spital HC COMPLETE BLD COUNT 2020-05-05 10:15:00 [facility] W/AUTO DIFF BASIC METABOLIC PANEL 2020-05-05 10:15:00 [facility] VITAMIN B12 LEVEL 2020-05-05 10:15:00 [facility] B1 LEVEL, WHOLE 2020-05-05 10:15:00 Vidal Ortiz [facility] BLOOD THYROID STIMULATING 2020-05-05 10:15:00 [facility] LIPID PANEL 2020-05-05 10:15:00 Vidal Ortiz [facility] HEMOGLOBIN A1C 2020-05-05 10:15:00 Vidal Ortiz [facility] SEDIMENTATION RATE 2020-05-05 10:15:00 Diana [facility] RAPID HIV 1 & 2 2020-05-05 10:15:00 Vidal Ortiz [facility] SYPHILIS TREPONEMA SCREEN 2020-05-05 10:15:00 [facility] CONFIRMATION (REVERSE ALGORITHM) ESTIMATED GFR 2020-05-05 10:15:00 Chloe Minor [facility] C-REACTIVE PROTEIN 2020-05-05 10:15:00 Diana [facility] POC GLUCOSE 2020-05-05 01:38:00 UlChloe owen [facility] spital POC GLUCOSE 2020-05-04 22:14:00 [facility] 2020-05-04 20:33:00 Tom Means [facility] URINALYSIS SCREEN AND 2020-05-04 20:33:00 Tom Means [facility] MICROSCOPY, WITH REFLEX TO CULTURE COVID-19 QUALITATIVE 2020-05-04 20:27:00 Tom Means [facility] RT-PCR ECG 12-LEAD 2020-05-04 20:21:36 Chloe Minor [facility] CT ANGIOGRAM NECK W WO 2020-05-04 19:46:05 Tom Means [facility] CONTRAST CT ANGIOGRAM HEAD W WO 2020-05-04 19:45:38 Tom Means [facility] CONTRAST CT STROKE BRAIN WO 2020-05-04 19:36:06 Tom Means [facility] CONTRAST HC COMPLETE BLD COUNT 2020-05-04 19:19:00 Tom Means [facility] W/AUTO DIFF PARTIAL THROMBOPLASTIN 2020-05-04 19:19:00 Tom Means [facility] TIME (PTT) PROTHROMBIN TIME WITH INR 2020-05-04 [facility] COMPREHENSIVE METABOLIC 2020-05-04 19:19:00 [facility] PANEL ESTIMATED GFR 2020-05-04 19:19:00 [facility] [QL] CULTURE, URINE, 2017-08-27 00:00:00 [facility] ROUTINE Physicians [[facility]] CULTURE, URINE, 2017-08-21 00:00:00 [facility] ROUTINE Physicians [[facility]] CULTURE, URINE, 2017-06-09 00:00:00 [facility] ROUTINE Physicians CHILO - Endometrial laser [facility] ablation Limbal stem cell [facility] Randy iqbal transplantation ORIF - Open reduction and [facility] [place] internal fixation of fracture Tendon operation [facility] Randy iqbal History of Ankle Surgery [facility] Physicians History of Hysteroscopy [facility] With Endometrial Ablation Physic ians Plan of Care Planned Activity Planned Date Details Comments Source Future Scheduled Test DIABETES: RETINAL EYE [facility] EXAM [code = DIABETES: RETINAL EYE EXAM] Future Scheduled Test DIABETIC FOOT EXAM [facility] [code = DIABETIC FOOT EXAM] Future Scheduled Test URINE MICROALBUMIN [facility] [code = URINE MICROALBUMIN] Future Scheduled Test COVID-19 VACCINE (1) [facility] [code = COVID-19 VACCINE (1)] Future Scheduled Test Hepatitis C screening [facility] (procedure) [code = 860515000] Future Scheduled Test Screening for malignant [facility] neoplasm of cervix (procedure) [code = 097293486] Future Scheduled Test BREAST CANCER SCREENING [facility] [code = BREAST CANCER SCREENING] Future Scheduled Test COLONOSCOPY SCREENING [facility] [code = COLONOSCOPY SCREENING] Future Scheduled Test SHINGLES VACCINES (#1) [facility] [code = SHINGLES VACCINES (#1)] Future Scheduled Test INFLUENZA VACCINE [code [facility] = INFLUENZA VACCINE] Encounters Start End Encounter Admission Attending Care Care Encounter Source Date/Time Date/Time Type Type Clinicians Facility Department ID 2021-01-10 Outpatient [facility] [id number] [place] 10:36:54 [facility] 2021-01-10 Outpatient [facility] [id number] [place] 09:52:14 [facility] 2020-12-12 Emergency [facility] [id number] Univers 09:13[facility] 2020-11-24 Outpatient [facility]HOUGHT[facility] [id number] [place] 15:05:59 [facility] 2020-11-24 [id number] [place] 14:12[facility] [id number] [place] 13:57:46 [facility] 2020-11-13 [facility] [id number] [place] 12:16:17 [facility] 2021-03-07 2021-03-07 Outpatient R HINDS, [facility] [id number] Univers 14:30:00 14:30:00 BRODY [id number] [facility] 2021-02-26 2021-02-26 ambulatory [facility]ML[facility] [id number] [facility] 2021-01-03 2021-01-03 ambulatory [facility]MLC [facility] [id number] [facility] 2020-12-27 2020-12-27 ambulatory [facility]LMLC [facility] [id number] [facility] 2020-12-26 2020-12-26 Outpatient R RADIOLOGY [facility] [id number] Univers 11:30:00 11:30:00 [id number] ity [facility] 2020-12-18 2020-12-[address] [facility] [id number] Univers 10:28:59 23:59:00 Encounter MARYCHUY [id number] ity [facility] [id number] [facility] [phone] [address] 2020-12-18 2020-12-18 Outpatient R RADIOLOGY [facility] [id number] Univers 00:00:00 23:59:00 [facility] 2020-12-18 2020-12-18 Outpatient R RADIOLOGY [facility] [id number] Univers 00:00:00 00:00:00 [id number] ity of [facility] 2020-12-18 2020-12-18 Orders Doctor AURELIO 1.2.840.114 [id number] Univers 00:00:00 00:00:00 Only Unassigned, BETY [id number] ity of [place] [facility] 4.2.7.2.686 Lionel as [phone] [address] 2020-12-08 2020-12-08 Orders Doctor AURELIO 1.2.840.114 [id number] Univers 00:00:00 00:00:00 Only Unassigned, BETY [id number] ity of [facility] [id number] Lionel as [phone] [address] 2020-12-07 2020-12-07 Outpatient [facility] [id number] [facility] 2020-12-07 2020-12-07 Outpatient [facility] [id number] [facility] 2020-12-06 2020-12-06 Outpatient [facility] [id number] [facility] 2020-12-05 2020-12-05 Outpatient [facility] [id number] [facility] 2020-12-04 2020-12-04 Outpatient [facility] [id number] [facility] 2020-12-04 2020-12-04 Outpatient [facility] [id number] [facility] 2020-12-03 2020-12-03 Emergency [facility] [id number] Univers 14:18:00 16:20:00 Greg Martinez [id number] ity of [place] 4.2.7.2.686 [facility] [phone] [facility] 084 Branch 2020-12-03 2020-12-03 Orders Doctor CAREY 1.2.840.114 [id number] Univers 00:00:00 00:00:00 Only Unassigned, BETY [id number] ity of [place] [facility] 4.2.7.2.686 [facility] [phone] [facility] 009 Branch 2020-11-27 2020-11-27 Orders Michael [facility] 1.2.374.558 [id number] [place] 00:00:00 00:00:00 Only Shefali SUGAR 350.1.13.58 He alth [place] [facility] 9.2.7.2.[address] [phone] AND 5 WOMENS 2020-11-27 2020-11-[address] [place] [facility] 1.2.840.1 [id number] [place] 00:00:00 00:00:00 [facility] [place] 350.1.13.58 [facility] [place] 9.2.7.2.686 [address] [phone] AND 2 WOMENS 2020-11-24 2020-11-24 [facility] 1.2.061.866 [id number] [place] 14:14:20 15:06:05 Visit Shefali SUGAR 350.1.13.58 Mikel alth [place] [id number] [id number] AND 5 WOMENS 2020-11-10 2020-11-10 Outpatient [facility] [id number] [facility] 2020-10-26 2020-10-26 Outpatient [facility] [id number] [facility] 2020-10-26 2020-10-26 Outpatient [facility] [id number] [facility] 2020-10-12 2020-10-12 Outpatient [facility]MLC [facility] [id number] [facility] 00:00:00 Familia Dinora [facility] 2020-09-28 2020-09-28 Documentat Nida Wheeler 1.2.840.1 [id number] Methodi 00:00:00 00:00:[address] 3.430.2.7 Hospit a .3.733445 l .8 2020-08-16 2020-08-16 [facility] 1.2.812.331 [id number] Univers 00:00:00 00:00:00 Adriana Martinez 350.1.13.10 i ty [facility] 4.2.7.2.686 Kassidy Myersio [phone] Nm dical [address] 2020-07-19 2020-07-19 Outpatient [facility] [id number] Univers 09:00:00 09:00:00 ADRIANA [id number] [facility] 2020-07-19 2020-07-19 Outpatient R ANGELIKA [facility] [id number] Univers 09:00:00 09:00:00 ADRIANA [facility] 2020-06-22 2020-06-22 Office Nida Wheeler 1.2.840.1 [id number] Methodi 09:54:22 10:40:[address] 3.430.2.7 Hospit a .3.452105 l .8 2020-06-22 2020-06-22 Travel 1.2.840.1 [id number] [id number] Methodi 00:00:00 00:00:[address] 3.430.2.7 0.2.7.3.698 Ho spita .3.183778 084.8 l .8 2020-06-21 2020-06-21 Office Adriana Banks [facility] 1.2.840.11 [id number] Univers 14:30:27 16:08:05 Visit Goldie Huber 350.1.13.10 [place] [phone] Nm dical [place]al [address] [place] [address] 2020-06-21 2020-06-21 Outpatient R MAYO [facility] [id number] Univers 15:00:00 15:00:00 GOLDIE pierce [facility] 2020-06-21 2020-06-21 Telephone [facility] 1.2.840.114 [id number] Univers 00:00:00 00:00:00 Adriana Martinez 350.1.13.10 i ty [facility] 4.2.7.2.686 [place] [phone] Nm dical [place]al [address] [place] [address] 2020-06-01 2020-06-01 Outpatient [facility] [id number] [facility] 2020-06-01 2020-06-01 Outpatient [facility] [id number] [facility] 2020-05-30 2020-05-30 Travel 1.2.840.1 1.2.004.029 [id number] Methodi 00:00:00 00:00:[address] 3.430.2.7 0.2.7.3.698 [facility]623[facility] 084.8 l .8 2020-05-26 2020[facility]05-[address] [facility] [id number] 2020-05-17 2020-05-17 Outpatient [facility] [id number] [facility]00 [facility] 2020-05-04 2020-05-05 Emergency Kingsley Corado K. 1.2.840.1 [id number] Methodi 13:01:00 16:43:00 Chloe Minor [address]72.1.[address] 3.430.2.7 Hospit a .3.405424 l .8 2020-05-04 2020-05-04 Travel 1.2.840.1 1.2.634.560 [id number] Method 00:00:00 00:00:[address] 3.430.2.7 0.2.7.3.698 Ho spita .3.537187 084.8 l .8 2020-04-14 2020-04-14 Outpatient [facility] [id number] [facility] 2020-04-10 2020-04-10 Outpatient [facility] [id number] [facility] 2020-03-31 2020-03-31 Outpatient [facility] [id number] [facility] 2020-03-23 2020-03-23 Outpatient [facility] [id number] [facility] 2020-03-23 2020-03-23 Outpatient [facility] [id number] [facility] 2020-03-14 2020-03-14 Outpatient [facility] [id number] [facility] 2020-03-07 2020-03-07 Outpatient [facility] [id number] [facility] 2020-02-28 2020-02-28 Outpatient [facility] [id number] [facility] 2020-02-24 2020-02-24 Outpatient [facility] [id number] [facility] 2020-02-23 2020-02-23 [facility] [id number] 2020-02-23 2020-02-23 [facility] [id number] 2019-11-24 2019-11-25 Outpt Diag nullFlavo [facility] [id number] Memoria 14:28:00 04:59:00 Services r Outpatient 03 l [facility] 2019-11-11 2019-11-[address] [facility] [id number] 2019-11-02 2019-11-02 [facility] [id number] [facility] 2019-11-02 2019-11-[address] [facility] [id number] [facility] 2019-10-27 2019-10-27 [facility] [id number] 14:10:00 14:10:00 [address] - [address] [facility] l Medicine Outpati ent Clinics 2019-10-27 2019-10-27 [facility] [id number] 10:59:00 10:59:00 t [address] - [address] [facility] l Medicine Outpati ent Clinics 2019-10-12 2019-10-12 [facility] [id number] 08:20:00 08:20:00 t [place]ube [place] [address] - [address] [facility] l Medicine Outpati ent Clinics 2019-09-22 2019-09-22 [facility] [id number] 08:30:00 08:30:00 t Danube Opl[place] s - Needl [facility] l Medicine Outpati ent Clinics 2019-08-10 2019-08-10 [facility] [id number] 13:30:00 13:30:[address] Luke s - Drive [facility] Medicine l Medicine Outpati ent Clinics 2019-04-02 2019-04-02 [facility] [id number] 15:07:00 15:07:00 t Danube [address] Luke s - Drive [facility] Medicine l Medicine Outpati ent Clinics 2019-03-16 2019-03-16 [facility] [id number] [facility] 17:04:00 17:04:[address] Luke s - Drive [facility] Medicine l Medicine Outpati ent Clinics 2018-12-03 2018-12-03 [facility] [id number] [facility] 16:41:00 16:41:[address] Luke s - Drive [facility] Medicine l Medicine Outpati ent Clinics 2018-11-18 2018-11-18 [facility] [id number] [address] 08:00:00 08:00:[address] Luke s - Drive [facility] Medicine l Medicine Outpati ent Clinics 2018-07-22 2018-07-22 [facility] [id number] [address] 08:30:00 08:30:00 t Dan[address] Needl Luke s - Drive [facility] Medicine l Medicine Outpati ent Clinics 2018-06-10 2018-06-10 [facility] [id number] [address] 09:53:00 09:53:00 t [address] Luke s - Drive [facility] Medicine l Medicine Outpati ent Clinics 2018-03-23 2018-03-23 [facility] [id number] [address] 14:00:00 14:00:[address] Luke s - Drive [facility] Medicine l Medicine Outpati ent Clinics 2018-03-19 2018-03-19 [facility] [id number] [address] 10:45:00 10:45:[address] Luke s - Drive [facility] Medicine l Medicine Outpati ent Clinics 2017-11-10 2017-11-10 [facility] [id number] 10:15:00 10:15:[address] Luke s - Drive [facility] Medicine l Medicine Outpati ent Clinics 2017-11-06 2017-11-06 [facility] [id number] 08:00:00 08:00:00 t Danube Oplerno s - Drive [facility] 2017-09-23 2017-09-23 [facility] [id number] [address] 16:07:00 16:07:00 t Danube Oplerno s - Drive [facility] ent [facility] 2017-09-03 2017-09-03 Appointmen RHIANNON HOOPER [facility] 4 [id number] Univers 11:00:00 11:00:00 t; KARISSA CLEANING gy Center it y [place] [employer] Physic i ans 2017-08-27 2017-08-27 Appointmen RHIANNON HOOPER [facility] 4 [id number] Univers 14:10:00 14:10:00 t; KARISSA CLEANING gy Center it y [place] [employer] [employer] Physic i ans 2017-08-21 2017-08-21 Appointmen RHIANNON HOOPER [facility] 4 [id number] Univers 10:10:00 10:10:00 t; KARISSA CLEANING gy Center it y [place] [employer]SA [employer] Physic i ans 2017-08-14 2017-08-14 Appointmen RHIANNON HOOPER [facility] 4 [id number] Univers 11:00:00 11:00:00 t; KARISSA CLEANING gy Center [place] [employer] Physic i ans 2017-07-31 2017-07-31 Appointmen RHIANNON HOOPER [facility] 4 [id number] Univers 14:10:00 14:10:00 t; KARISSA CLEANING gy Center it [place] [employer]ISSA [employer] Physic i ans 2017-07-24 2017-07-24 Appointmen RHIANNON HOOPER [facility] 4 [id number] Univers 13:20:00 13:20:00 t; KARISSA CLEANING gy Center it y [place] [employer]SA [employer] Physic i ans 2017-07-17 2017-07-17 Appointmen RHIANNON HOOPER [facility] 4 [id number] Univers 14:10:00 14:10:00 t; KARISSA CLEANING gy Center [facility] [place] [employer]SA [facility] Physic i ans 2017-07-03 2017-07-03 Appointguerita URODIANERHIANNON [facility] [id number] Univers 09:00:00 09:00:00 t; DERESKA Center ity of [address] DERESKA Physici ans 2017-06-26 2017-06-26 [facility] YUVALMACHOJARRETTRHIANNON [facility] 4 [id number] Univers 09:00:00 09:00:00 t; KARISSA CLEANING gy Center [facility] [place] KARISSA CLEAN[employer] Physic i ans 2017-06-25 2017-06-25 [facility] [id number] 09:30:00 09:30:00 t Danube Gamar [facility] Clin[facility] 2017-06-19 2017-06-19 [facility] RHI[facility]ON HOOPER [facility] 4 [id number] Univers 15:20:00 15:20:00 t; KARISSA CLEANING gy Center it y of [place] [facility] [place] KARISSA CLEANING Physic i ans 2017-06-12 2017-06-12 [facility] RHI[facility]ON HOOPER [facility] 4 [id number] Univers 13:20:00 13:20:00 t; KARISSA CLEANING gy Center it y of [place] [facility] [place] KARISSA CLEANING Physic i ans 2017-06-09 2017-06-09 [facility]EL [facility] UTP [id number] Univers 09:20:00 09:20:00 t; KARISSA CLEANING [place] KARISSA CLEANING Physic i ans 2016-12-19 2016-12-19 AppointRHIANNON Su UTP [id number] Univers 10:10:00 10:10:00 t; KARISSA CLEANING ity of [place]HA[place] KARISSA CLEANING Physic i ans 2016-11-28 2016-11-28 AppointRHIANNON Su UTP [id number] Univers 10:10:00 10:10:00 t; KARISSA CLEANING ity [place], [place] SHEFALI, CHIEF INFORMATION SECURITY OFFICER Physic i ans 2016-09-12 2016-09-12 [facility] YUVALROCHELLE [facility] UTP [id number] Univers 13:20:00 13:20:00 t; SHEFALI, CHIEF INFORMATION SECURITY OFFICER ity of [place], [place] SHEFALI, CHIEF INFORMATION SECURITY OFFICER Physic i ans 2016-04-01 2016-04-01 Emergency [facility] [id number] Memoria 17:43:00 23:41:00 r [place] 02 l [place] 2015-11-30 2015-11-30 [facility] YUVALMACHOJARRETT [facility] UTP [id number] Univers 09:00:00 09:00:00 t; SHEFALI, CHIEF INFORMATION SECURITY OFFICER ity [place], [place] SHEFALI, CHIEF INFORMATION SECURITY OFFICER Physic i ans 2015-10-20 2015-10-20 [facility] RHIANNON PUCKETT [id number] Univers 10:10:00 10:10:00 t; Preeti CARTER [place] NINA, M.D. Physi ci ans 2015-09-21 2015-09-21 [facility] RHIANNON PUCKETT UTP [id number] Univers 13:00:00 13:00:00 t; Preeti CARTER [place] NINA, M.D. Physi ci ans 2015-08-10 2015-08-10 OBS Day [facility] [id number] Memoria 12:24:00 19:42:00 Surgery r [place] 00 l [place] 2015-08-10 2015-08-10 [facility] RHIANNON PUCKETT UTP [id number] Univers 09:30:00 09:30:00 t; Preeti CARTER [place] NINA, M.D. Physi ci ans 2015-08-02 2015-08-02 [facility] RHIANNON PUCKETT UTP [id number] Univers 08:30:00 08:30:00 t; Preeti CARTER [place] NINA, M.D. Physi ci ans 2015-07-05 2015-07-05 [facility] RHIANNON PUCKETT UTP [id number] Univers 08:30:00 08:30:00 t; Preeti CARTER [place] NINA, M.D. Physi ci ans 2015-04-28 2015-04-29 Outpt Diag nullFlavo [facility] [id number] Memoria 15:30:00 04:59:00 Services r Outpatient 02 l Imaging - Randy iqbal Gosia 2011-09-02 2011-09-[address] [facility] [id number] Memoria 08:48:00 08:48:00 00 l [place] Results Test Description Test Time Test Comments Results Result Comments Source ECG 12 lead 2020-05-07 00:09:04 Test Item Value Reference Range Interpretation Comme nts Ventricular rate (test code = 253) Atrial rate (test code = 255) NV interval (test code = 266) QRSD interval [...] abnormality no longer evident in Lateral leads- [facility], (w Contrast, Strain and 3D if needed)2020-05-05 21:56:13 Test Item Value Reference Range Interpretation Comments AoV Area, Vmax (test 3.00 cm2 code = 4743749016) AoV Area, VTI (test 2.90 cm2 code = 3355069856) AoV Mean PG (test code mmHg = 5499920793) AoV Peak PG (test code mmHg = 1635266228) AoV Vmax (test code = 1.31 m/s 0139137427) AoV VTI (test code = 0.26 m 4661321467) IVS,d (test code = 1.03 cm 2356377589) IVS/LVPW,2D (test code = 9471936007) Left Atrium Dimension 4.40 cm Anterior (test code = 3793121257) LV,d (test code = 5.15 cm 1471738383) LV EF,2D (test code = 55.90 % 7810158260) LV,s (test code = 3.92 cm 1666911842) LVOT area (test code = 3.14 cm2 6115743918) LVOT Diam,S (test code 2.00 cm = 3883037409) LVOT Vmax (test code = 1.25 m/s 5688180968) LVOT VTI (test code = 0.24 m 0530661170) LVPWD,d (test code = 0.86 cm 0824469233) PV Pk Grad (test code = mmHg 3923428838) PV VMAX (test code = 0.90 m/s 7528296850) RVOT Vmax (test code = 0.78 m/s 6350723955) TR Vpeak (test code = 2.34 mm/s 4108203571) MV E A ratio (test code = 6313323524) TR pk grad (test code = mmHg 2125395087) MR Vmax (test code = 4.27 m/s 7620844571) MR peak grad (test code mmHg = 6344841297) E wave decelartion time msec (test code = 2779005159) MV Peak A Sam (test 0.87 m/s code = 2225258917) MV valve area p 1/2 3.17 cm2 method (test code = 2906000704) MV Peak E Sam (test 0.83 m/s code = 2402914179) MV stenosis pressure 69.31 ms 1/2 time (test code = 1610146734) LVOT stroke volume 0.75 cm3 (test code = 5668873053) AV LVOT peak gradient mmHg (test code = 5950060617) Ao Root,d,2D (test code 3.00 cm = 0362527330) LV SYS VOL (test code = 66.72 ml 5139980539) LV LICONA VOL (test code 126.64 ml = 6333803465) LV SV Teich 2D (test 59.92 ml code = 0315131387) LV Vol s Teich PSAX 66.72 ml (test code = 1088580952) RVOT pk grad (test code mmHg = 8659931341) AoV Vmn (test code = 2544997056) LV FS Teich 2D (test code = 6757976831) MV AE ratio (test code = 6817051942) LV FS Cube 2D (test code = 6485255950) LVOT Vmn (test code = 2201698527) Aov area Vmn (test code 2.80 cm2 = 7083763734) LVOT mean grad (test mmHg code = 4806882152) MAX Pred HR (test code = 9632286616) 85 of MPHR (test code = 9190306622) Ao d LA s ratio (test code = 2964348590) Calc MPHR (test code = bpm 4412293476) LV SV Cube 2D (test 76.35 ml code = 1361030271) LV vol d cube 2D (test 136.59 ml code = 7787070922) LV vol s cube 2D (test 60.24 ml code = 0962503102) MV Decel slope (test 3.45 m/s2 code = 2798207001) Pred Exer Dur R1 (test code = 9002099766) Pred METS R1 (test code = 3333090653) Velocity Ratio (V1/V2) 0.95 m/s (test code = 4689) EF (test code = 47.32 % 7541315155) E/A ratio (test code = 0028023429) LVOT VTI (CM) (test 24.00 cm code = 3011492222) MARIOLA (test code = MARIOLA) Normal left ventricular size and function with an EF~ 55% to 60%.Normal right ventricular size and function.Structurally normal cardiac valves.Mild mitral regurgitation. Left atrial enlargement. Normal pericardium with no effusion.Grade 1 diastolic dysfunction. [facility] Brain W Wo [id number] 18:34:06EXAM: MRI BRAIN W WO CONTRAST CLINICAL [...] is no enhancing lesion in the brain. [id number] Interface, Radiology Results Incoming - 05/05/2020 1:37 [...] There is no enhancing lesion in the brain.[id number] HospitalUrine apbjqby8937-15-38 20:46:09 Test Item Value Reference Range Interpretation Comments Urine culture (test SEE COMMENT Bacteriu summer screen code = 4824285) negative. [facility] Wo Xnwlfkdm9786-67-40 19:49:34EXAMINATION: CT ANGIOGRAM HEAD W WO CONTRAST [...] occlusion or aneurysm. [id number] Interface, Radiology Results Incoming 05/04/2020 2:52 PM CDTFormatting of this note [...] occlusion or aneurysm.[id number] Neck W Wo [id number] 19:48:26EXAMINATION: CT ANGIOGRAM NECK W WO CONTRAST [...] without significant stenosis by NASCET criteriaVertebral artery patency.1M2RAD_PS01[facility] Hospital[facility] Stroke Brain Wo Dxoqvyax5257-13-77 19:42:38EXAMINATION: CT STROKE BRAIN WO CONTRAST CLINICAL [...] at 1441hours on 05/04/2020 who verbalized understanding. [facility]-[id number] Interface, Radiology Results Incoming - 05/04/2020 2:45 [...] at 1441 hours on 05/04/2020 who verbalized understanding.[id number]] CULTURE, URINE, [id number] 14:25:01 Test Item Value Reference Range Interpretation Comments ORGANISM (test Escherichia coliEnterococcus code = 699-9) Species FINAL REPORT 50,000 - 100,000 CFU/mL (test code = Escherichia coli 10,000 - FINAL REPORT) 50,000 CFU/mL EnterococcusSpecies 10,000 - 50,000 CFU/mL Skin Nina [facility][H] [id number] 14:25:01 Test Item Value Reference Range Interpretation Comments ORGANISM (test code = Enterococcus 699-9) Species Ampicillin (test code - S = Ampicillin) Levofloxacin (test - S code = Levofloxacin) Nitrofurantoin (test - S code = Nitrofurantoin) Tetracycline (test - S code = Tetracycline) Vancomycin (test code SEE NOTES S S= Latoya ceptible, = Vancomycin) R= Resistant, I= Intermediate, N/A= Not Applicable [facility][H] [id number] 14:25:01 Test Item Value Reference Range Interpretation [...] Tetracycline (test code = - S Tetracycline) [facility][O] Urine Dipstick (In Office)2017-08-27 15:29:00 Test Item Value Reference Range Interpretation Comments LEUKOCYTES (test code = LEUKOCYTES) 2+ A NITRITE; Normal (test code = 30121-1) neg N UROBILINOGEN; Normal (test code = 0.2 N 31570-6) PROTEIN; Normal (test code = 03037-0) neg N pH (test code = pH) 6.5 N URINE BLOOD; Abnormal (test code = trace A 31143-9) SPECIFIC GRAVITY; Normal (test code = 1.020 N 2965-2) KETONES; Normal (test code = 70605-3) neg N BILIRUBIN; Normal (test code = 73974-8) neg N GLUCOSE; Normal (test code = 1547-9) neg N [facility][H] CULTURE, URINE, [id number] 15:37:01 Test Item Value Reference Range Interpretation Comments ORGANISM (test code = Escherichia coli 699-9) FINAL REPORT (test 50,000 - 100,000 CFU/mL code = FINAL REPORT) Escherichia coli . 50,000 - 100,000 CFU/mL Skin Nina [facility][H] [id number] 15:37:01 Test Item Value Reference Range Interpretation [...] Resi stant, I= Intermediate, N/A= Not Applicable [facility][O] Urine Dipstick (In Office)2017-08-21 12:24:00 Test Item Value Reference Range Interpretation Comments LEUKOCYTES (test code = LEUKOCYTES) 2+ A NITRITE; Normal (test code = 77807-2) NEG N UROBILINOGEN; Normal (test code = 0.2 N 56158-8) PROTEIN; Abnormal (test code = 73606-0) 30 MG A pH (test code = pH) 5.5 N URINE BLOOD; Abnormal (test code = 2+ A 79120-2) SPECIFIC GRAVITY; Normal (test code = 1.030 N 2965-2) KETONES; Normal (test code = 27425-2) NEG N BILIRUBIN; Normal (test code = 02437-2) NEG N GLUCOSE; Normal (test code = 1547-9) NEG N [facility][O] Urine Dipstick (In Office)2017-06-09 10:06:00 Test Item Value Reference Range Interpretation Comments LEUKOCYTES (test code = LEUKOCYTES) 2+ A NITRITE; Normal (test code = 13954-1) NEG N UROBILINOGEN; Normal (test code = 0.2 N 34556-1) PROTEIN; Normal (test code = 24051-4) NEG N pH (test code = pH) 7.0 N URINE BLOOD; Abnormal (test code = 2+ A 33687-4) SPECIFIC GRAVITY; Normal (test code = 1.010 N 2965-2) KETONES; Normal (test code = 79409-2) NEG N BILIRUBIN; Normal (test code = NEG N 31220-9) GLUCOSE; Abnormal (test code = 1547-9) 250 MG A [facility]] BV/ VAGINITIS PANEL DNA PROBE AFFIRM 2017-06-09 09:20:01 Test Item Value Reference Range Interpretation Comments Trichomonas vaginalis DNA (test code Negative Negative = 31998-7) Gardnerella vaginalis DNA; Abnormal Positive Negative A (test code = 6410-5) Grace sp. DNA; Abnormal (test code Positive Negative A = 94364-5) [facility]] CULTURE, URINE, [id number] 09:20:01 Test Item Value Reference Range Interpretation Comments ORGANISM (test code = Escherichia coli 699-9) FINAL REPORT (test >100,000 CFU/mL code = FINAL REPORT) Escherichia coli 10,000 - 50,000 CFU/mL Skin Nina [facility][H] [id number] 09:20:01 Test Item Value Reference Range Interpretation Comments ORGANISM (test code Escherichia coli = 699-9) Ciprofloxacin (test .75 S code = Ciprofloxacin) Levofloxacin (test 1.5 S code = Levofloxacin) Trimethoprim/Sulfame 32 R thoxazole (test code = Trimethoprim/Sulfame thoxazole) Ceftriaxone (test .094 S S= Suscept ible, code = Ceftriaxone) R= Resis tant, I= Intermediate, N/A= Not Applicable [facility]2017-02-20 20:20:00 Test Item Value Reference Range Interpretation Comments Eos BF (test code = Eos BF) 0 [facility]2017-02-20 20:20:00 Test Item Value Reference Range Interpretation Comments Macrophage BF (test code = Macrophage 0 BF) [facility]2017-02-20 20:20:00 Test Item Value Reference Range Interpretation Comments Color BF (test code = Yellow (04/01/16 2:20 Color BF) PM) [facility]2017-02-20 20:20:00 Test Item Value Reference Range Interpretation Comments CellCnt BF Type (test Other (04/01/16 2:20 code = CellCnt BF Type) PM) [facility]2017-02-20 20:20:00 Test Item Value Reference Range Interpretation Comments Clarity BF (test code = Slight Cloudy (04/01/16 Clarity BF) 2:20 PM) [facility]2017-02-20 20:20:00 Test Item Value Reference Range Interpretation Comments RBC BF (test code = RBC BF) 5375 [facility]2017-02-20 20:20:00 Test Item Value Reference Range Interpretation Comments WBC BF (test code = WBC BF) 980 [facility]2017-02-20 20:20:00 Test Item Value Reference Range Interpretation Comments Lymph BF (test code = Lymph BF) 44 [facility]2017-02-20 20:20:00 Test Item Value Reference Range Interpretation Comments Segs BF (test code = Segs BF) 56 [facility]ncqvblHTNADEQAXW9600-19-08 19:10:00 Test Item Value Reference Range Interpretation Comments WBC (test code = WBC) 6.1 3.7-10.4 [facility]anoVpjdgzsWENMPXMZRQ7093-23-75 19:10:00 Test Item Value Reference Range Interpretation Comments MPV (test code = MPV) 7.9 7.4-10.4 [facility]anoClilerbADNOTGDJFZ0745-58-18 19:10:00 Test Item Value Reference Range Interpretation Comments Platelet (test code = Platelet) 226 133-450 [facility]anoQdfyebdPLLCFSQPIW2852-07-91 19:10:00 Test Item Value Reference Range Interpretation Comments MCH (test code = MCH) 28.5 pg 27.0-31.0 [facility]anoGdmzydxMANROSGLGF7305-51-83 19:10:00 Test Item Value Reference Range Interpretation Comments RDW (test code = RDW) 14.8 11.5-14.5 [facility]anoVshcyzsLSMMLJTYWS6794-87-46 19:10:00 Test Item Value Reference Range Interpretation Comments MCHC (test code = MCHC) 33.2 32.0-36.0 [facility]anoAtodjnjLWFUOXKUDS1576-96-42 19:10:00 Test Item Value Reference Range Interpretation Comments Hct (test code = Hct) 30.8 36.0-48.0 [facility]anoNevcqwhGRTBGWAOVZ1269-22-88 19:10:00 Test Item Value Reference Range Interpretation Comments RBC (test code = RBC) 3.59 4.20-5.40 [facility]anoUadprzzZFVGRQKUKX3942-59-92 19:10:00 Test Item Value Reference Range Interpretation Comments Hgb (test code = Hgb) 10.2 12.0-16.0 [facility]anoNexjiztGGTHNSKEHO2346-46-60 19:10:00 Test Item Value Reference Range Interpretation Comments MCV (test code = MCV) 85.9 80.0-98.0 [facility]anoNwsgfbiOWAAQFHSQA6677-48-11 19:10:00 Test Item Value Reference Range Interpretation Comments Eosinophils # (test code 0.1 See_Comment [A utomated message] The = Eosinophils #) system [facility] h generated this result tra nsmitted reference range : <=0.5. The reference r lv was not used to int erpret this result as normal/abnormal . [facility]anoTpiymwiWYJUJDLRBX7332-62-26 19:10:00 Test Item Value Reference Range Interpretation Comments Monocytes # (test code 0.4 See_Comment [Aut omated message] The = Monocytes #) system which generated this result tra nsmitted reference range : <=0.8. The reference r lv was not used to int erpret this result as normal/abnormal . [facility]anoKkkwvzeGHETLLFFJX9156-06-30 19:10:00 Test Item Value Reference Range Interpretation Comments Segs-Bands # (test code = Segs-Bands #) 4.0 1.5-8.1 [facility]anoPjciughJYXZIYHWIV4118-62-15 19:10:00 Test Item Value Reference Range Interpretation Comments Lymphocytes # (test code = Lymphocytes 1.5 1.0-5.5 #) [facility]anoAqxbmaiYUSTMQBVUU5214-17-28 19:10:00 Test Item Value Reference Range Interpretation Comments Basophils # (test code 0.0 See_Comment [Aut omated message] The = Basophils #) system which generated this result tra nsmitted reference range : <=0.2. The reference r lv was not used to int erpret this result as normal/abnormal . [facility]anoStomdgdFAWNNTJEML4056-57-41 19:10:00 Test Item Value Reference Range Interpretation Comments Lymphocytes (test code = Lymphocytes) 25.0 20.0-40.0 [facility]anoPuyphdkHYEUQNJJTD6448-05-00 19:10:00 Test Item Value Reference Range Interpretation Comments Monocytes (test code = Monocytes) 6.9 2.0-12.0 [facility]anoQiwiibtLEKBHSEVWW7653-91-05 19:10:00 Test Item Value Reference Range Interpretation Comments Segs (test code = Segs) 65.5 45.0-75.0 [facility]anoTinldfgHZCLAWINEH1065-26-20 19:10:00 Test Item Value Reference Range Interpretation Comments Basophils (test code = 0.6 See_Comment [Aut omated message] The Basophils) system which ge nerated this result tra nsmitted reference range : <=1.0. The reference r lv was not used to int erpret this result as normal/abnormal . [facility] PlanoYqcenwwHCKSYMDHKK7238-27-46 19:10:00 Test Item Value Reference Range Interpretation Comments Eosinophils (test code = 2.0 See_Comment [A utomated message] The Eosinophils) system which ge nerated this result tra nsmitted reference range : <=4.0. The reference r lv was not used to int erpret this result as normal/abnormal . [facility] PlanoCqucufiBPHNKSXRHO7439-43-69 19:07:00 Test Item Value Reference Range Interpretation Comments Sed Rate (test code = 84 See_Comment [Auto mated message] The Sed Rate) system which ge nerated this result transmit neli reference range : <=20. The reference range was not used to interpr et this result as felipe l/abnormal. [facility]2017-02-20 18:33:00 Test Item Value Reference Range Interpretation Comments Lactic Acid Lvl (test code = Lactic 1.3 0.5-2.2 Acid Lvl) [facility]2017-02-20 18:33:00 Test Item Value Reference Range Interpretation Comments eGFR (test code = eGFR) 91 [facility]2017-02-20 18:33:00 Test Item Value Reference Range Interpretation Comments B/C Ratio (test code = B/C Ratio) 19 6-25 [facility]2017-02-20 18:33:00 Test Item Value Reference Range Interpretation Comments A/G Ratio (test code = A/G Ratio) 0.6 0.7-1.6 [facility]2017-02-20 18:33:00 Test Item Value Reference Range Interpretation Comments Globulin (test code = Globulin) 4.7 2.7-4.2 [facility]2017-02-20 18:33:00 Test Item Value Reference Range Interpretation Comments AGAP (test code = AGAP) 12.0 10.0-20.0 [facility]2017-02-20 18:33:00 Test Item Value Reference Range Interpretation Comments Bili Total (test code = Bili Total) 0.2 0.2-1.3 [facility]2017-02-20 18:33:00 Test Item Value Reference Range Interpretation Comments Alk Phos (test code = Alk Phos) 116 39-136 [facility]2017-02-20 18:33:00 Test Item Value Reference Range Interpretation Comments CO2 (test code = CO2) 30 24-32 [facility]2017-02-20 18:33:00 Test Item Value Reference Range Interpretation Comments Chloride Lvl (test code = Chloride Lvl) 99 95-109 [facility]2017-02-20 18:33:00 Test Item Value Reference Range Interpretation Comments BUN (test code = BUN) 14 7-22 [facility]2017-02-20 18:33:00 Test Item Value Reference Range Interpretation Comments Glucose Lvl (test code = Glucose Lvl) 128 70-99 [facility]2017-02-20 18:33:00 Test Item Value Reference Range Interpretation Comments Creatinine Lvl (test code = Creatinine 0.74 0.50-1.40 Lvl) [facility]2017-02-20 18:33:00 Test Item Value Reference Range Interpretation Comments Potassium Lvl (test code = Potassium 5.0 3.5-5.1 Lvl) [facility]2017-02-20 18:33:00 Test Item Value Reference Range Interpretation Comments Sodium Lvl (test code = Sodium Lvl) 136 135-145 [facility]2017-02-20 18:33:00 Test Item Value Reference Range Interpretation Comments Total Protein (test code = Total 7.7 6.4-8.4 Protein) [facility]2017-02-20 18:33:00 Test Item Value Reference Range Interpretation Comments Calcium Lvl (test code = Calcium Lvl) 8.7 8.5-10.5 [facility]2017-02-20 18:33:00 Test Item Value Reference Range Interpretation Comments ALT (test code = ALT) 21 See_Comment [Auto mated message] The system which ge nerated this result transmit neli reference range : <=65. The reference range was not used to interpr et this result as felipe l/abnormal. [facility]2017-02-20 18:33:00 Test Item Value Reference Range Interpretation Comments Albumin Lvl (test code = Albumin Lvl) 3.0 3.5-5.0 [facility]2017-02-20 18:33:00 Test Item Value Reference Range Interpretation Comments AST (test code = AST) 27 See_Comment [Auto mated message] The system which ge nerated this result transmit neli reference range : <=37. The reference range was not used to interpr et this result as felipe l/abnormal. [facility] 18:[facility]:00 Test Item Value Reference Range Interpretation Comments C-REACTIVE PROTEIN (test code = 44.4 C-REACTIVE PROTEIN) [facility]2016-06-23 14:38:00 Test Item Value Reference Range Interpretation Comments eGFR (test code = eGFR) 79 [facility]2016-06-23 14:38:00 Test Item Value Reference Range Interpretation Comments Sodium Lvl (test code = Sodium Lvl) 144 135-145 [facility]2016-06-23 14:38:00 Test Item Value Reference Range Interpretation Comments Chloride Lvl (test code = Chloride Lvl) 104 95-109 [facility]2016-06-23 14:38:00 Test Item Value Reference Range Interpretation Comments Potassium Lvl (test code = Potassium 4.6 3.5-5.1 Lvl) [facility]2016-06-23 14:38:00 Test Item Value Reference Range Interpretation Comments Calcium Lvl (test code = Calcium Lvl) 9.4 8.5-10.5 [facility]2016-06-23 14:38:00 Test Item Value Reference Range Interpretation Comments CO2 (test code = CO2) 31 24-32 [facility]2016-06-23 14:38:00 Test Item Value Reference Range Interpretation Comments Glucose Lvl (test code = Glucose Lvl) 126 70-99 [facility]2016-06-23 14:38:00 Test Item Value Reference Range Interpretation Comments Creatinine Lvl (test code = Creatinine 0.84 0.50-1.40 Lvl) [facility]2016-06-23 14:38:00 Test Item Value Reference Range Interpretation Comments BUN (test code = BUN) 17 7-22 [facility]2016-06-23 14:38:00 Test Item Value Reference Range Interpretation Comments AGAP (test code = AGAP) 13.6 10.0-20.0 [facility] 14:38:00 Test Item Value Reference Range Interpretation Comments MCH (test code = MCH) 28.8 pg 27.0-31.0 [facility]LiwnmdgMEBUNKTQPH7128-38-90 14:38:00 Test Item Value Reference Range Interpretation Comments Hgb (test code = Hgb) 12.1 12.0-16.0 [facility]PblldnpKHZILVHIAC6798-48-29 14:38:00 Test Item Value Reference Range Interpretation Comments RBC (test code = RBC) 4.20 4.20-5.40 [facility]WuqkacpZZLVMBHPJH9866-15-19 14:38:00 Test Item Value Reference Range Interpretation Comments MCV (test code = MCV) 89.2 80.0-98.0 [facility]anoRhviwmgMNXHOEBDIU6988-43-13 14:38:00 Test Item Value Reference Range Interpretation Comments Hct (test code = Hct) 37.5 36.0-48.0 [facility]anoUxpnvwgGJGEOXPYKS9918-15-61 14:38:00 Test Item Value Reference Range Interpretation Comments WBC (test code = WBC) 7.4 3.7-10.4 [facility]anoBchdqmxVHNREJFWTZ2511-58-86 14:38:00 Test Item Value Reference Range Interpretation Comments MCHC (test code = MCHC) 32.3 32.0-36.0 [facility]anoWniieubNFYPPUQRRW4922-87-68 14:38:00 Test Item Value Reference Range Interpretation Comments RDW (test code = RDW) 14.3 11.5-14.5 [facility]anoIepypdgGJLPRYJYTC2671-48-29 14:38:00 Test Item Value Reference Range Interpretation Comments MPV (test code = MPV) 9.3 7.4-10.4 [facility]anoSoezfqmZYESKXWZLQ3634-24-23 14:38:00 Test Item Value Reference Range Interpretation Comments Platelet (test code = Platelet) 193 133-450 [facility]anoPhimpkmOBDIXBLVWE6330-87-71 14:38:00 Test Item Value Reference Range Interpretation Comments Basophils # (test code 0.0 See_Comment [Aut omated message] The = Basophils #) system which generated this result tra nsmitted reference range : <=0.2. The reference r lv was not used to int erpret this result as normal/abnormal . [facility]anoJraweemEQZQOGIBMD1384-80-49 14:38:00 Test Item Value Reference Range Interpretation Comments Segs (test code = Segs) 61.4 45.0-75.0 [facility]anoIpakhrrWNTZOYMIJC2675-50-16 14:38:00 Test Item Value Reference Range Interpretation Comments Lymphocytes (test code = Lymphocytes) 30.9 20.0-40.0 [facility]anoIsaksmmSKICXARYSI0605-49-63 14:38:00 Test Item Value Reference Range Interpretation Comments Lymphocytes # (test code = Lymphocytes 2.3 1.0-5.5 #) [facility]anoYdtjwxfMIMJAFPILL6245-67-01 14:38:00 Test Item Value Reference Range Interpretation Comments Monocytes # (test code 0.4 See_Comment [Aut omated message] The = Monocytes #) system which generated this result tra nsmitted reference range : <=0.8. The reference r lv was not used to int erpret this result as normal/abnormal . [facility]anoLsknatfTTIJKAWMSM6848-29-36 14:38:00 Test Item Value Reference Range Interpretation Comments Segs-Bands # (test code = Segs-Bands #) 4.5 1.5-8.1 [id number] 14:38:00 Test Item Value Reference Range Interpretation Comments Basophils (test code = 0.5 See_Comment [Aut omated message] The Basophils) system which ge nerated this result tra nsmitted reference range : <=1.0. The reference r lv was not used to int erpret this result as normal/abnormal . [facility]anoHwrifavSSTRVMPRIZ6857-66-69 14:38:00 Test Item Value Reference Range Interpretation Comments Monocytes (test code = Monocytes) 5.8 2.0-12.0 [facility]anoQlrqcjbRXATRQFQTG0780-19-87 14:38:00 Test Item Value Reference Range Interpretation Comments Eosinophils (test code = 1.4 See_Comment [A utomated message] The Eosinophils) system which ge nerated this result tra nsmitted reference range : <=4.0. The reference r lv was not used to int erpret this result as normal/abnormal . [facility]a[id number] 14:38:00 Test Item Value Reference Range Interpretation Comments Eosinophils # (test code 0.1 See_Comment [A utomated message] The = Eosinophils #) system whic h generated this result tra nsmitted reference range : <=0.5. The reference r lv was not used to int erpret this result as normal/abnormal . [facility] CenterGxscodlMTKVWMZLPS7503-48-08 14:38:00 Test Item Value Reference Range Interpretation Comments HIV 1/2 Ab (test code Negative *NA*(08/03/15 = HIV 1/2 Ab) 9:38 AM) [facility] Cent[id number] 14:38:00 Test Item Value Reference Range Interpretation Comments Hep C Ab (test code = Negative *NA*(08/03/15 Hep C Ab) 9:38 AM) [facility]
[2021-02-27 16:44] LABS: Urine Blood 2+ (Negative); Urine Glucose Negative (Negative); Urine Protein Negative (Negative); Urine Specific Gravity 1.015 (1.005-1.030); Urine pH 5.5 (5.0-7.0)
--- NOTE | 2021-02-27 18:45 | EDPHYS ---
Physician Documentation [facility] Name: Bob Armstrong Age: 60 yrs Sex: Female : 1960 Arrival Date: 02/27/2021 Time: 16:14 Bed 30 Private MD: [facility] ED Physician Braulio Tellez HPI: 02/27 18:39 This 60 yrs old Female presents to ER via Ambulatory with complaints of Female Problems.kb 18:39 The patient presents with rash/raw to perineal area. The patient has not recently seen kb a physician. 18:40 Onset: The symptoms/episode began/occurred 2 month(s) ago. Modifying factors: The kb symptoms are alleviated by nothing, the symptoms are aggravated by urinating. Associated signs and symptoms: The patient has no apparent associated signs or symptoms. Severity of symptoms: At their worst the symptoms were moderate, in the emergency department the symptoms are unchanged. The patient has not experienced similar symptoms in the past. Pt states she has had a rash to perineal area for 2 months. was seen by senior reliability engineer at time of onset and was given nystatin cream that helps, but she was told to use it for a week at a time then take a break for a week so when she stops using it the rash comes back. states she has a hyperactive bladder that she sees a uro/senior reliability engineer for and wears poise because she always has leaks. Denies urinary symptoms. States she has burning to the area all of the time that is worse when she urinates. . 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 - Social history:: Smoking status: unknown. ROS: 18:44 Constitutional: Negative for fever, chills, and weight loss. kb 18:44 Skin: Positive for rash, of the pelvis. 18:44 All other systems are negative. Exam: 18:42 Constitutional: This is a well developed, well nourished patient who is awake, alert, kb and in no acute distress. Head/Face: Normocephalic, atraumatic. ENT: Moist Mucous membranes Respiratory: Respirations even and unlabored. No increased work of breathing. Talking in full sentences MS/ Extremity: Pulses equal, no cyanosis. Neurovascular intact. Full, normal range of motion. Neuro: Awake and alert, GCS 15, oriented to person, place, time, and situation. Moves all extremities. Normal gait. Psych: Awake, alert, with orientation to person, place and time. Behavior, mood, and affect are within normal limits. 18:42 : Pelvic Exam: External exam: erythema is noted. 18:42 Skin: consistent with contact dermatitis, on the groin. Vital Signs: 16:29 BP 153 / 68; Pulse 75; Resp 18; Pulse Ox 98% on R/A; Pain 10/10; ww 16:33 BP 153 / 68; ww MDM: 16:38 Patient medically screened. kb 18:39 Data reviewed: vital signs, nurses notes. Data interpreted: Pulse oximetry: on room air kb is 98 %. Interpretation: normal. Counseling: I had a detailed discussion with the patient and/or guardian regarding: the historical points, exam findings, and any diagnostic results supporting the discharge/admit diagnosis, the need for outpatient follow up, a family practitioner, to return to the emergency department if symptoms worsen or persist or if there are any questions or concerns that arise at home. 18:44 ED course: Educated to continue use of nystatin, try buttpaste and stop using poise. . kb 02/27 16:43 Order name: Urine Dipstick-Ancillary; Complete Time: 16:56 EDMS 02/27 16:38 Order name: Urine Dipstick-Ancillary (obtain specimen); Complete Time: 16:43 kb Administered Medications: No medications were administered Disposition: 02/28 08:26 Co-signature as Attending Physician, Braulio Tellez MD I agree with the assessment and estefania plan of care. Disposition Summary: 02/27/21 18:45 Discharge Ordered Location: Home kb Condition: Stable kb Diagnosis - Diaper dermatitis kb Followup: kb - With: Emergency Department - When: As needed - Reason: Worsening of condition Followup: kb - With: Private Physician - When: 2 - 3 days - Reason: Recheck today's complaints, Continuance of care, Re-evaluation by your physician Discharge Instructions: - Discharge Summary Sheet kb - Diaper Rash kb Forms: - Medication Reconciliation Form kb - Thank You Letter kb - Antibiotic Education kb - Prescription Opioid Use kb Signatures: Dispatcher [employer] Bev Malone, SANYA QUINN-Braulio Esteban MD MD cha Wood, Whitney, RN RN ww
--- NOTE | 2021-02-27 18:45 | ER ---
Nurse's Notes [facility] Name: Bob Armstrong Age: 60 yrs Sex: Female : 1960 Arrival Date: 02/27/2021 Time: 16:14 Bed 30 Private MD: Luciano Travis Diagnosis: Diaper dermatitis Presentation: 02/27 16:29 Chief complaint:. Initial Sepsis Screen: Does the patient meet any 2 criteria? No. ww Patient's initial sepsis screen is negative. Does the patient have a suspected source of infection? No. Patient's initial sepsis screen is negative. Risk Assessment: Do you want to hurt yourself or someone else? Patient reports no desire to harm self or others. 16:29 Method Of Arrival: Ambulatory ww 16:29 Chief complaint: Patient states: Complaining of vaginal rash, pain and burning with ww urination. Saw corporate aircraft mechanic 2 months ago and was placed on nystatin. Coronavirus screen: Client denies travel out of the [place] in the last 14 days. Ebola Screen: Patient negative for fever greater than or equal to 101.5 degrees Fahrenheit, and additional compatible Ebola Virus Disease symptoms Patient denies exposure to infectious person. Patient denies travel to an Ebola-affected area in the 21 days before illness onset. Onset of symptoms is unknown. 16:29 Acuity: JERRY 4 ww Triage Assessment: 16:29 General: Appears in no apparent distress. comfortable, Behavior is calm, cooperative, ww appropriate for age. Pain: Complains of pain in pelvis. EENT: No deficits noted. No signs and/or symptoms were reported regarding the EENT system. Neuro: Level of Consciousness is awake, alert, obeys commands, Oriented to person, place, time, situation. Cardiovascular: Capillary refill < 3 seconds Patient's skin is warm and dry. Respiratory: Airway is patent Respiratory effort is even, unlabored, Respiratory pattern is regular, symmetrical. GI: No deficits noted. No signs and/or symptoms were reported involving the gastrointestinal system. Derm: Reports vaginal redness possible diaper rash from her pose pads. 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 - Social history:: Smoking status: unknown. Screenin:34 Abuse screen: Denies threats or abuse. Denies injuries from another. Nutritional ww screening: No deficits noted. Tuberculosis screening: No symptoms or risk factors identified. Fall Risk None identified. Assessment: 18:32 Reassessment: Patient appears in no apparent distress at this time. No changes from jl7 previously documented assessment. Patient and/or family updated on plan of care and expected duration. Pain level reassessed. Patient is alert, oriented x 3, equal unlabored respirations, skin warm/dry/pink. Vital Signs: 16:29 BP 153 / 68; Pulse 75; Resp 18; Pulse Ox 98% on R/A; Pain 10/10; ww 16:33 BP 153 / 68; ww ED Course: 16:14 Patient arrived in ED. mr 16:15 Luciano Travis, is Private Physician. mr 16:33 Triage completed. ww 16:33 Arm band placed on right wrist. ww 16:37 Bev Flores F[facility]-C [facility]. kb 16:37 Braulio Tellez MD is Attending Physician. kb 18:29 Alvino Diaz, DANTE is Primary Nurse. jl7 18:32 Patient has correct armband on for positive identification. Placed in gown. Bed in low jl7 position. Call light in reach. Side rails up X 1. 19:02 No provider procedures requiring assistance completed. Patient did not have IV access jl7 during this emergency room visit. Administered Medications: No medications were administered Outcome: 18:45 Discharge ordered by MD. kb 19:02 Discharged to home ambulatory. jl7 19:02 Condition: stable 19:02 Discharge instructions given to patient, Instructed on discharge instructions, follow up and referral plans. Demonstrated understanding of instructions, follow-up care. 19:02 Patient left the ED. jl7 Signatures: Bev Flores FNP-C FNP-Arlyn Miracle Moyer mr Alvino Diaz, RN RN jl7 Omaira Mi RN RN
[2021-02-27 19:32] VITALS: BP 153/68; O2SAT 98
== END 2021-02-27 19:02 | disposition home or self-care (01) ==
LOC: ER 16:10
DX: L22 Diaper dermatitis (principal); E11.9 Type 2 diabetes mellitus without complications; I10 Essential (primary) hypertension; Z88.1 Allergy status to other antibiotic agents; Z88.8 Allergy status to other drugs, medicaments and biological substances
CPT/HCPCS: 81003; 99281

== ENCOUNTER 2021-05-13 13:09 | Emergency (ER) | payer OTHER ==
--- OUTSIDE RECORDS SUMMARY | 2021-05-13 13:19 | XMS REPORT | Continuity of Care Document ---
:1960 Author Organization [facility] t Address [address] [place] [address] Care Team Providers Name Role Phone Tera Travis Primary Care Physician Tomasa Travis Attending Clinician Unavailable LAVERN Attending Clinician Unavailable CHAVEZ Attending Clinician Unavailable Jordy OHWELL Attending Clinician Unavailable [place] FLETCHER Attending Clinician Unavailable [place] Cardoza Attending Clinician Doctor Unassigned, Name Attending Clinician Unavailable Chavez ANN Attending Clinician RADIOLOGY Attending Clinician Unavailable Radiology Attending Clinician Unavailable Madonna ANN S Attending Clinician Liam ANN Attending Clinician Angelika RENE Attending Clinician ANGELIKA Attending Clinician Unavailable Mayo ANN L Attending Clinician Michell HUBER Attending Clinician Unavailable Savanna Corado MD Attending Clinician Mily ANN Attending Clinician RUFUS Attending Clinician Unavailable [id number] Attending Clinician Unavailable LAVERN Attending Clinician Unavailable MILY Admitting Clinician Unavailable Payers Payer Name Policy Type Policy Number Effective Date Expiration Date Isabella griffin [facility] WELLMED [id number] 2020 00:00:00 [employer] MEDICARE [id number] 2020 00:00:00 WELLMED/AARP [id number] 2020 MEDICARE 00:00:00 ADVANTAGE BCMETHODIST [facility] [id number] 2013 2020 00:00:00 00:00:00 Problems Condition Condition [...] l H92.01 - Diagnosis Active 2019-022019-11-25 M cecilio "OTALGIA, 0-01 12:00:00 l RIGHT EAR" H92.01 - 00:01: He rmarchana "OTALGIA, 00 RIGHT EAR" Active 11/11/2019 [facility] OPID [place] Troponin I Troponin I Disease Active U nivers above above 6-12 [place] range range 00 [place] Elevated Elevated Disease Active Unive rs brain brain 6-12 ity of natriureti natriureti 00:[place] c peptide c peptide 00 Medi susana (BNP) (BNP) Branch level level Obesity Obesity Disease Active Univers 6-12 ity of 00:00: [place] [id number] Medical Branch HTN HTN Disease Active Univers (hypertens (hypertens 6-12 it y of ion) ion) 00:00: [place] [facility] KARLY on KARLY on Disease Active Univers CPAP CPAP 6-12 ity of 00:00: [place] 00 Medical Branch Type 2 Type 2 Disease Active Univers diabetes diabetes 6-12 ity of mellitus mellitus 00:00: [place] without without 00 Medical complicati complicati Br [...] 00:00: [place] KNEE PAIN 00 Active 04/01/2016 [place] STRESS Diagnosis Active 2015-08-10 Mem oria URINARY 4-14 07:24:00 l INCONTINEN STRESS 00:00: Herm archana CE-N39.3 / URINARY 00 URET INCONTINEN CE-N39.3 / URET Active 05/25/2015 [place] R31.2 - Diagnosis Active 2015-06-06 Me moria OTHER 3-14 16:22:00 l MICROSCOPI R31.2 - 00:01: Her brito C OTHER 00 HEMATURIA MICROSCOPI C HEMATURIA Active 04/24/2015 [facility] OPID [place] 727.00 - Diagnosis Active 2011-09-02 M emoria SYNOVITIS 08-29 08:58:00 l NOS 727.00 - 00:01: Randy iqbal SYNOVITIS 00 NOS Active 08/30/2011 [facility] Anxiety Problem Resolve 2019-11-26 Mem oria (finding) d 23:02:23 l Anxiety [place] (finding) Resolved Problem 11/26/2019 Tomasa Farrar [place] Chronic Problem Resolve 2019-11-26 Mem oria obstructiv d 23:02:23 l e lung Chronic [place] disease obstructiv (disorder) e lung disease (disorder) Resolved Problem 11/26/2019 Tomasa Farrar H [place] Depressive Problem Resolve 2019-11-26 Memoria disorder d 23:02:23 l (disorder) Randy iqbal Depressive disorder (disorder) Resolved Problem 11/26/2019 Tomasa Farrar [place] Diabetes Problem Resolve 2019-11-26 Me moria mellitus d 23:02:23 l (disorder) Diabetes He rmann mellitus (disorder) Resolved Problem 11/26/2019 Tomasa Farrar [place] Endometrio Problem Resolve 2019-11-26 Memoria sis d 23:02:23 l (disorder) Randy n Endometrio sis (disorder) Resolved Problem 11/26/2019 Tomasa Farrar [place] Fibromyosi Problem Resolve 2019-11-26 Memoria tis d 23:02:23 l (disorder) Randy n Fibromyosi tis (disorder) Resolved Problem 11/26/2019 Tomasa Farrar [place] Lumbar Problem Resolve 2019-11-26 Alonzo summer spondylosi d 23:02:23 l s Lumbar [place] (disorder) spondylosi s (disorder) Resolved Problem 11/26/2019 Tomasa Farrar [place] Motion Problem Resolve 2019-11-26 Al[place] summer sickness d 23:02:23 l (disorder) Motion Herm archana sickness (disorder) Resolved Problem 11/26/2019 Tomasa Farrar [place] Neuropathy Problem Resolve 2019-11-26 Memoria (disorder) d 23:02:23 l [place] Neuropathy (disorder) Resolved Problem 11/26/2019 Tomasa Farrar [place] Bladder Problem Resolve 2019-11-26 Mem oria muscle d 23:02:23 l dysfunctio Bladder Her brito n - muscle overactive dysfunctio (disorder) n - overactive (disorder) Resolved Problem 11/26/2019 Tomasa Farrar [place] Rheumatoid Problem Resolve 2019-11-26 Memoria arthritis d 23:02:23 l (disorder) Randy n Rheumatoid arthritis (disorder) Resolved Problem 11/26/2019 Tomasa Farrar [place] Sleep Problem Resolve 2019-11-26 Alonzo summer apnea d 23:02:23 l (finding) Sleep Randy n apnea (finding) Resolved Problem 11/26/2019 Tomasa Farrar [place] History of History of Problem Resolve Univers arthritis arthritis [id number] d ity of [place] Physici ans History of History of Problem [...] ity of ia ia [place] Physici ans Hematuria, Hematuria, Problem Active [...] Date Date Treatment Clinician Date Discharge Problem 2017-0 2016-04-04 2016-04-04 [place] Diagnosis: 2-20 04:32:29 04:32:29 l Pain and 06:00: [place] swelling Discharge 00 of right Diagnosis: knee Pain and swelling of right knee 04/01/2016 04/04/2016 [place] Allergies, Adverse Reactions, Alerts Allergy Allergy Status [...] Unknown M ethodi ycin ty to Comments) 5-13 st adverse 00:00: Hospita reaction 00 l s to drug Azithrom Propensi Active Unknown - Uni vers ycin ty to See comments 12 ity of adverse 00:00: [place] reaction 00 Medical s Branch AZITHROM DRUG Active Unknown-Cmnt Un emanuel YCIN INGREDI 12 ity of 00:00: [place] 00 Medical Branch Lactase Allergy Active Diarrhea 2016-0 [place] to [facility] substanc 00:00: e 00 Lactase Propensi Active Diarrhea Unive rs ty to 611 ity of adverse 00:00: [place] reaction 00 Medical s Branch Pregabal Propensi Active Swelling Univ ers in ty to 6 ity of adverse 00:00: [place] reaction 00 [...] drug Active Univers CAPS allergy ity of [place] Physici ans Lyrica Lyrica Active Memoria l [place] Latex Latex Active Memoria l [place] Adhesive Adhesive Active Memori a l [place] Family History Family Member Diagnosis Comments Start Date Stop Date Source Mother Family history of [facility] diabetes mellitus Physici ans Mother Family history of Univers y [facility] lung cancer Physicians Mother Family history of Univers [facility]y of [place] hypertension Physicians Father Family history of [facility] stroke Physicians Brother Family history of [facility] diabetes mellitus Physici ans Natural father Stroke [facility] Natural mother Lung cancer [facility] Social History Social Habit Start Date Stop Date Quantity Comments Source Exposure to Not sure [facility] SARS-CoV-2 [place] [facility] (event) Branch Tobacco use and 2020-11-24 2020-11-24 Smokeless tobacco [facility] exposure 00:00:00 00:00:00 non-user Alcohol intake 2020-11-24 2020-11-24 [facility] 00:00:00 00:00:00 non-drinker (finding) Social History 2015-08-03 2015-08-03 [facility] [place] 14:18:49 14:18:49 Sex Ass[birth year] [facility] 00:00:00 00:00:00 Smoking Status Start Date Stop Date Source Never smoker [facility] Branch Medications Ordered Filled Start Stop Current Ordering Indication Dosage Frequency Signature Comments Components Source Medication Medication Date Date Medication? Clinician (SIG) Name Name sulfamethox Yes [id number] 1{tbl} Take 1 Univers azole-trime 2-14 tablet by ity of thoprim 00:00: mouth [place] 800-160 mg 00 every 12 Medic al per tablet (twelve) Branc h hours. doxycycline Yes [id number] 100mg Take 1 Univers hyclate 100 2-14 capsule by it y of mg capsule 00:00: mouth [place] (two) Medical times Branch daily. traMADoL 50 2021- Yes [id number] 50mg Take 1 Uni vers mg tablet 2-14 - tablet by ity of 00:00: 05:59 mouth [place] 00 :00 every 6 Medical (six) Branch hours as needed for Pain (scale 7-10) for up to 7 days. Indication s: acute pain Gemtesa 75 2020-02 Yes 1{tbl} QD Take 1 [place] MG tablet 1-29 tablet by Healt h 00:00: mouth 1 00 (one) time each day. Gemtesa 75 2020-02 Yes 1{tbl} QD Take 1 [place] MG tablet 1-29 tablet by Healt h 00:00: mouth 1 00 (one) time each day. Gemtesa 75 2020-02 Yes 1{tbl} QD Take 1 [place] MG tablet 1-29 tablet by Healt h 00:00: mouth 1 00 (one) time each day. Gemtesa 75 2020-02 Yes 1{tbl} QD Take 1 [place] MG tablet 1-29 tablet by Healt h 00:00: mouth 1 00 (one) time each day. ketorolac 2020-02 60mg 60 mg, Unive rs (TORADOL) 0-24 [...] Pain (scale 7-10). Indication s: acute pain budesonide- 2020-02 Yes 2{puff} Q.5D Inhale 2 [...] incidence of candidiasi s. Do not swallow. armodafinil 2020- No 250mg QD Take 250 Methodi (NUVIGIL) 5-17 05-[address] 250 mg 16:54: 00:00 mouth Hospita tablet 02 :00 daily. l armodafiniL 2020- No [id number] 250mg QD Take 1 Methodi (NUVIGIL) 5-17 11-[address] 250 mg 00:00: 05:59 (250 mg Hospita tablet 00 :00 total) by l mouth daily for 180 days. amitriptyli Yes 50mg QD Take 50 mg UT ne (Elavil) 5-14 by mouth 1 He alth 25 MG 00:00: (one) time tablet 00 each day. amitriptyli Yes 50mg QD Take 50 mg UT ne (Elavil) 5-14 by mouth 1 He alth 25 MG 00:00: (one) time tablet 00 each day. amitriptyli 0 Yes 50mg QD Take 50 mg UT ne (Elavil) 5-14 by mouth 1 He alth 25 MG 00:00: (one) time tablet 00 each day. amitriptyli Yes 50mg QD Take 50 mg UT ne (Elavil) 5-14 by mouth 1 He alth 25 MG 00:00: (one) time tablet 00 each day. amitriptyli 2020- No [id number] 50mg QD Take 2 Methodi ne (ELAVIL) 5-14 11-[address] 25 MG 00:00: 05:59 (50 mg Hospita tablet 00 :00 total) by l mouth nightly for 180 days. carBAMazepi No [id number] 200mg Q.5D Take 1 Methodi ne 06-22 05-[address] (TEGretoL) 00:00: 04:59 (200 mg Hos ileana 200 mg 00 :00 total) by l tablet mouth 2 (two) times a day. Dexlansopra No 60mg Take 60 mg Univers zole 5-12 05-12 by mouth ity of (DEXILANT) 21:25: 00:00 [place]. [place] 60 mg 27 :00 Medical capsule Branch Dexlansopra No 60mg Take 60 mg Univers zole 5-12 05-12 by mouth ity of (DEXILANT) 21:25: 00:00 [place]. [place] 60 mg 27 :00 Medical capsule Branch Dexlansopra No 60mg Take 60 mg Univers zole [...] mouth ity of 50 mg 20:10: at [place] tablet 56 bedtime. Medical Branch Armodafinil Yes 250mg Take 250 U nivers (NUVIGIL) 5-12 mg by ity of 250 mg Tab 20:09: mouth [place] 27 daily. Medical Branch cycloSPORIN Yes 1[drp] Place 1 U nivers E 5-12 Drop in ity of (RESTASIS) 20:09: both eyes [place] 0.05 % 27 every 12 Medical drops (twelve) Branch hours. aspirin 81 Yes 81mg Take 81 mg U nivers mg chewable 5-12 by mouth ity of tablet 20:09: daily. [address] Branch atorvastati Yes 10mg Take 10 mg Univers n 10 mg 5-12 by mouth. ity of tablet 20:09: [address] doxepin 10 Yes 10mg Take 10 mg U nivers mg capsule 5-12 by mouth. ity of 20:09: [address] insulin Yes 160U inject 160 Univ ers glargine 5-12 Units ity of U-300 conc 20:09: under the [place] (TOUJEO 27 skin. Medical SOLOSTAR Branch U-300 INSULIN) 300 unit/mL (1.5 mL) InPn lithium Yes 300mg Take 300 Unive rs carbonate 5-12 mg by ity of 300 mg 20:09: mouth. [address] Branch SERTraline Yes 50mg Take 50 mg U nivers 50 mg 5-12 by mouth. ity of tablet 20:09: [address] celecoxib Yes 200mg Take 200 Uni vers (CELEBREX) 5-12 mg by ity of 200 mg 20:09: mouth 2 [place] capsule 27 (two) Medical times [place] daily. hydroxychlo Yes 200mg Take 200 U nivers roquine 200 5-12 mg by ity of mg tablet 20:09: mouth 2 [place] [address] (two) Medical times [place] daily. cyclobenzap Yes 10mg Take 10 mg Univers rine 10 mg 5-12 by mouth 3 ity of tablet 20:09: (three) [place] [address] times Medical daily. Branch pilocarpine Yes 7.5mg Take 7.5 U nivers 7.5 mg 5-12 mg by ity of tablet 20:09: mouth 3 [place] [address] (three) Medical times Branch daily. Armodafinil Yes 250mg Take 250 U nivers (NUVIGIL) 5-12 mg by ity of 250 mg Tab 20:09: mouth [place] [address] daily. Medical Branch cycloSPORIN Yes 1[drp] Place 1 U nivers E 5-12 Drop in ity of (RESTASIS) 20:09: both eyes [place] 0.05 % 27 every 12 Medical drops (twelve) Branch hours. aspirin 81 0 Yes 81mg Take 81 mg U nivers mg chewable 5-12 by mouth ity of tablet 20:09: daily. [address] atorvastati Yes 10mg Take 10 mg Univers n 10 mg 5-12 by mouth. ity of tablet 20:09: [address] doxepin 10 Yes 10mg Take 10 mg U nivers mg capsule 5-12 by mouth. ity of 20:09: [address] insulin Yes 160U inject 160 Univ ers glargine 5-12 Units ity of U-300 conc 20:09: under the [place] (TOUJEO 27 skin. Medical SOLOSTAR Branch U-300 INSULIN) 300 unit/mL (1.5 mL) InPn lithium Yes 300mg Take 300 Unive rs carbonate 5-12 mg by ity of 300 mg 20:09: mouth. [place] [address] Medical Branch SERTraline Yes 50mg Take 50 mg U nivers 50 mg 5-12 by mouth. ity of tablet 20:09: [address] celecoxib 2020- Yes 200mg Take 200 Uni vers (CELEBREX) 5-12 mg by ity of 200 mg 20:09: mouth 2 [place] [address] (two) Medical times Branch daily. hydroxychlo 2020- Yes 200mg Take 200 U nivers roquine 200 5-12 mg by ity of mg tablet 20:09: mouth 2 [place] [address] (two) Medical times Branch daily. cyclobenzap Yes 10mg Take 10 mg Univers rine 10 mg 5-12 by mouth 3 ity of tablet 20:09: (three) [place] [address] times Medical daily. Branch pilocarpine Yes 7.5mg Take 7.5 U nivers 7.5 mg 5-12 mg by ity of tablet 20:09: mouth 3 [place] [address] (three) Medical times Branch daily. Armodafinil Yes 250mg Take 250 U nivers (NUVIGIL) 5-12 mg by ity of 250 mg Tab 20:09: mouth [place] [address] daily. Medical Branch cycloSPORIN Yes 1[drp] Place 1 U nivers E 5-12 Drop in ity of (RESTASIS) 20:09: both eyes [place] 0.05 % 27 every 12 Medical drops (twelve) Branch hours. aspirin 81 Yes 81mg Take 81 mg U nivers mg chewable 5-12 by mouth ity of tablet 20:09: daily. [address] atorvastati Yes 10mg Take 10 mg Univers n 10 mg 5-12 by mouth. ity of tablet 20:09: [address] doxepin 10 Yes 10mg Take 10 mg U nivers mg capsule 5-12 by mouth. ity of 20:09: [address] insulin Yes 160U inject 160 Univ ers glargine 5-12 Units ity of U-300 conc 20:09: under the [place] (TOUJEO 27 skin. Medical SOLOSTAR Branch U-300 INSULIN) 300 unit/mL (1.5 mL) InPn lithium Yes 300mg Take 300 Unive rs carbonate 5-12 mg by ity of 300 mg 20:09: mouth. [address] Branch SERTraline Yes 50mg Take 50 mg U nivers 50 mg 5-12 by mouth. ity of tablet 20:09: [address] celecoxib Yes 200mg Take 200 Uni vers (CELEBREX) 5-12 mg by ity of 200 mg 20:09: mouth 2 [place] [address] (two) Medical times Branch daily. hydroxychlo Yes 200mg Take 200 U nivers roquine 200 5-12 mg by ity of mg tablet 20:09: mouth 2 [place] [address] (two) Medical times Branch daily. cyclobenzap Yes 10mg Take 10 mg Univers rine 10 mg 5-12 by mouth 3 ity of tablet 20:09: (three) [address] daily. Branch pilocarpine Yes 7.5mg Take 7.5 U nivers 7.5 mg 5-12 mg by ity of tablet 20:09: mouth 3 [place] [address] (three) Medical times [place] daily. Armodafinil Yes 250mg Take 250 U nivers (NUVIGIL) 5-12 mg by ity of 250 mg Tab 20:09: mouth [place] [address] daily. Medical Branch cycloSPORIN Yes 1[drp] Place 1 U nivers E 5-12 Drop in ity of (RESTASIS) 20:09: both eyes [place] 0.05 % 27 every 12 Medical drops (twelve) Branch hours. aspirin 81 Yes 81mg Take 81 mg U nivers mg chewable 5-12 by mouth ity of tablet 20:09: daily. [address] atorvastati Yes 10mg Take 10 mg Univers n 10 mg 5-12 by mouth. ity of tablet 20:09: [address] doxepin 10 Yes 10mg Take 10 mg U nivers mg capsule 5-12 by mouth. ity of 20:09: [address] insulin Yes 160U inject 160 Univ ers glargine 5-12 Units ity of U-300 conc 20:09: under the [place] (TOUJEO 27 skin. Medical SOLOSTAR Branch U-300 INSULIN) 300 unit/mL (1.5 mL) InPn lithium Yes 300mg Take 300 Unive rs carbonate 5-12 mg by ity of 300 mg 20:09: mouth. [place] capsule [address] [place] [address] SERTraline Yes 50mg Take 50 mg U nivers 50 mg 5-12 by mouth. ity of tablet 20:09: [address] celecoxib Yes 200mg Take 200 Uni vers (CELEBREX) 5-12 mg by ity of 200 mg 20:09: mouth 2 [place] [address] (two) Medical times [place] daily. hydroxychlo Yes 200mg Take 200 U nivers roquine 200 5-12 mg by ity of mg tablet 20:09: mouth 2 [place] [address] (two) Medical times Branch daily. cyclobenzap Yes 10mg Take 10 mg Univers rine 10 mg 5-12 by mouth 3 ity of tablet 20:09: (three) [place] [address] times Medical daily. Branch pilocarpine Yes 7.5mg Take 7.5 U nivers 7.5 mg 5-12 mg by ity of tablet 20:09: mouth 3 [place] [address] (three) Medical times Branch daily. Armodafinil Yes 250mg Take 250 U nivers (NUVIGIL) 5-12 mg by ity of 250 mg Tab 20:09: mouth [place] [address] daily. Medical Branch cycloSPORIN Yes 1[drp] Place 1 U nivers E 5-12 Drop in ity of (RESTASIS) 20:09: both eyes [place] 0.05 % 27 every 12 Medical drops (twelve) Branch hours. aspirin 81 Yes 81mg Take 81 mg U nivers mg chewable 5-12 by mouth ity of tablet 20:09: daily. [address] atorvastati Yes 10mg Take 10 mg Univers n 10 mg 5-12 by mouth. ity of tablet 20:09: [address] doxepin 10 Yes 10mg Take 10 mg U nivers mg capsule 5-12 by mouth. ity of 20:09: [address] insulin Yes 160U inject 160 Univ ers glargine 5-12 Units ity of U-300 conc 20:09: under the [place] ([place]OU[place]O 27 skin. Medical SOLOSTAR Branch U-300 INSULIN) 300 unit/mL (1.5 mL) InPn lithium Yes 300mg Take 300 Unive rs carbonate 5-12 mg by ity of 300 mg 20:09: mouth. [address] Branch SERTraline Yes 50mg Take 50 mg U nivers 50 mg 5-12 by mouth. ity of tablet 20:09: [address] celecoxib Yes 200mg Take 200 Uni vers (CELEBREX) 5-12 mg by ity of 200 mg 20:09: mouth 2 [place] capsule (two) Medical times Branch daily. hydroxychlo Yes 200mg Take 200 U nivers roquine 200 5-12 mg by ity of mg tablet 20:09: mouth 2 [place] [address] (two) Medical times Branch daily. cyclobenzap Yes 10mg Take 10 mg Univers rine 10 mg 5-12 by mouth 3 ity of tablet 20:09: (three) [place] [address] times Medical daily. Branch pilocarpine Yes 7.5mg Take 7.5 U nivers 7.5 mg 5-12 mg by ity of tablet 20:09: mouth 3 [place] [address] (three) Medical times Branch daily. Armodafinil Yes 250mg Take 250 U nivers (NUVIGIL) 5-12 mg by ity of 250 mg Tab 20:09: mouth [place] [address] daily. Medical Branch cycloSPORIN Yes 1[drp] Place 1 U nivers E 5-12 Drop in ity of (RESTASIS) 20:09: both eyes [place] 0.05 % 27 every 12 Medical drops (twelve) Branch hours. aspirin 81 Yes 81mg Take 81 mg U nivers mg chewable 5-12 by mouth ity of tablet 20:09: daily. [address] atorvastati Yes 10mg Take 10 mg Univers n 10 mg 5-12 by mouth. ity of tablet 20:09: [address] doxepin 10 Yes 10mg Take 10 mg U nivers mg capsule 5-12 by mouth. ity of 20:09: [address] insulin Yes 160U inject 160 Univ ers glargine 5-12 Units ity of U-300 conc 20:09: under the [place] ([place]OU[place]O 27 skin. Medical SOLOSTAR Branch U-300 INSULIN) 300 unit/mL (1.5 mL) InPn lithium Yes 300mg Take 300 Unive rs carbonate 5-12 mg by ity of 300 mg 20:09: mouth. [address] Branch SERTraline Yes 50mg Take 50 mg U nivers 50 mg 5-12 by mouth. ity of tablet 20:09: [address] celecoxib Yes 200mg Take 200 Uni vers (CELEBREX) 5-12 mg by ity of 200 mg 20:09: mouth 2 [facility] [place] [facility] 27 (two) Medical times Branch daily. hydroxychlo 2020-0 Yes 200mg Take 200 U nivers roquine 200 5-12 mg by ity of mg tablet 20:09: mouth 2 [place] 27 (two) Medical times Branch daily. cyclobenzap 2020-0 Yes 10mg Take 10 mg Univers rine 10 mg 5-12 by mouth 3 ity of tablet 20:09: (three) [place] [address] times Medical daily. Branch pilocarpine 2020-0 Yes 7.5mg Take 7.5 U nivers 7.5 mg 5-12 mg by ity of tablet 20:09: mouth 3 [place] 27 (three) Medical times Branch daily. exenatide 2020-0 [...] exas mL 40 Medical injection Branch Milnacipran 2020-0 Yes 50mg Take 50 mg Univers (SAVELLA) 5-12 by mouth ity of 50 mg 15:10: at [place] tablet 56 bedtime. Medical Branch Milnacipran 2020-0 Yes 50mg Take 50 mg Univers (SAVELLA) 5-12 by mouth ity of 50 mg 15:10: at [place] tablet 56 bedtime. Medical Branch Milnacipran Yes 50mg Take 50 mg Univers (SAVELLA) 5-12 by mouth ity of 50 mg 15:10: at [place] tablet 56 bedtime. Medical Branch Milnacipran Yes 50mg Take 50 mg Univers (SAVELLA) 5-12 by mouth ity of 50 mg 15:10: at [place] tablet 56 bedtime. Medical Branch Milnacipran Yes 50mg Take 50 mg Univers (SAVELLA) 5-12 by mouth ity of 50 mg 15:10: at [place] tablet 56 bedtime. Medical Branch Milnacipran Yes 50mg Take 50 mg Univers (SAVELLA) 5-12 by mouth ity of 50 mg 15:10: at [place] tablet 56 bedtime. Medical Branch Milnacipran Yes 50mg Take 50 mg Univers (SAVELLA) 5-12 by mouth ity of 50 mg 15:10: at [place] tablet 56 bedtime. Medical Branch Milnacipran Yes 50mg Take 50 mg Univers (SAVELLA) 5-12 by mouth ity of 50 mg 15:10: at [place] tablet 56 bedtime. Medical Branch insulin Yes 160U inject 160 Univ ers glargine 5-12 Units ity of U-300 conc 15:09: under the [place] ([place]O 27 skin. Medical SOLOSTAR Branch U-300 INSULIN) 300 unit/mL (1.5 mL) InPn lithium Yes 300mg Take 300 Unive rs carbonate 5-12 mg by ity of 300 mg 15:09: mouth. [place] capsule 27 Medical Branch SERTraline Yes 50mg Take 50 mg U nivers 50 mg 5-12 by mouth. ity of tablet 15:09: [place] [address] Medical Branch celecoxib Yes 200mg Take 200 Uni vers (CELEBREX) 5-12 mg by ity of 200 mg 15:09: mouth 2 [place] capsule 27 (two) Medical times Branch daily. hydroxychlo Yes 200mg Take 200 U nivers roquine 200 5-12 mg by ity of mg tablet 15:09: mouth 2 [place] [address] (two) Medical times Branch daily. cyclobenzap Yes 10mg Take 10 mg Univers rine 10 mg 5-12 by mouth 3 ity of tablet 15:09: (three) [address] daily. Branch pilocarpine Yes 7.5mg Take 7.5 U nivers 7.5 mg 5-12 mg by ity of tablet 15:09: mouth 3 [place] [address] (three) Medical times [place] daily. Armodafinil Yes 250mg Take 250 U nivers (NUVIGIL) 5-12 mg by ity of 250 mg Tab 15:09: mouth [place] [address] daily. Medical Branch cycloSPORIN Yes 1[drp] Place 1 U nivers E 5-12 Drop in ity of (RESTASIS) 15:09: both eyes [place] 0.05 % 27 every 12 Medical drops (twelve) Branch hours. aspirin 81 Yes 81mg Take 81 mg U nivers mg chewable 5-12 by mouth ity of tablet 15:09: daily. [address] atorvastati Yes 10mg Take 10 mg Univers n 10 mg 5-12 by mouth. ity of tablet 15:09: [address] doxepin 10 Yes 10mg Take 10 mg U nivers mg capsule 5-12 by mouth. ity of 15:09: [address] insulin Yes 160U inject 160 Univ ers glargine 5-12 Units ity of U-300 conc 15:09: under the [place] ([place]OUJEO 27 skin. Medical SOLOSTAR Branch U-300 INSULIN) 300 unit/mL (1.5 mL) InPn lithium Yes 300mg Take 300 Unive rs carbonate 5-12 mg by ity of 300 mg 15:09: mouth. [address] SERTraline Yes 50mg Take 50 mg U nivers 50 mg 5-12 by mouth. ity of tablet 15:09: [address] celecoxib Yes 200mg Take 200 Uni vers (CELEBREX) 5-12 mg by ity of 200 mg 15:09: mouth 2 [place] [address] (two) Medical times [place] daily. hydroxychlo Yes 200mg Take 200 U nivers roquine 200 5-12 mg by ity of mg tablet 15:09: mouth 2 [place] [address] (two) Medical [facility] daily. cyclobenzap Yes 10mg Take 10 mg Univers rine 10 mg 5-12 by mouth 3 ity of tablet 15:09: (three) [address] Medical daily. Branch pilocarpine Yes 7.5mg Take 7.5 U nivers 7.5 mg 5-12 mg by ity of tablet 15:09: mouth 3 [place] [address] (three) Medical [facility] daily. Armodafinil Yes 250mg Take 250 U nivers (NUVIGIL) 5-12 mg by ity of 250 mg Tab 15:09: mouth [place] [address] daily. Medical Branch cycloSPORIN Yes 1[drp] Place 1 U nivers E 5-12 Drop in ity of (RESTASIS) 15:09: both eyes [place] 0.05 % 27 every 12 Medical drops (twelve) Branch hours. aspirin 81 Yes 81mg Take 81 mg U nivers mg chewable 5-12 by mouth ity of tablet 15:09: daily. [address] atorvastati Yes 10mg Take 10 mg Univers n 10 mg 5-12 by mouth. ity of tablet 15:09: [address] doxepin 10 Yes 10mg Take 10 mg U nivers mg capsule 5-12 by mouth. ity of 15:09: [address] insulin Yes 160U inject 160 Univ ers glargine 5-12 Units ity of U-300 conc 15:09: under the [place] (TOUJEO 27 skin. Medical SOLOSTAR Branch U-300 INSULIN) 300 unit/mL (1.5 mL) InPn lithium Yes 300mg Take 300 Unive rs carbonate 5-12 mg by ity of 300 mg 15:09: mouth. [address] SERTraline Yes 50mg Take 50 mg U nivers 50 mg 5-12 by mouth. ity of tablet 15:09: [address] celecoxib Yes 200mg Take 200 Uni vers (CELEBREX) 5-12 mg by ity of 200 mg 15:09: mouth 2 [place] [address] (two) Medical times Branch daily. hydroxychlo Yes 200mg Take 200 U nivers roquine 200 5-12 mg by ity of mg tablet 15:09: mouth 2 [place] [address] (two) Medical times [place] daily. cyclobenzap Yes 10mg Take 10 mg Univers rine 10 mg 5-12 by mouth 3 ity of tablet 15:09: (three) [place] [address] times Medical daily. Branch pilocarpine Yes 7.5mg Take 7.5 U nivers 7.5 mg 5-12 mg by ity of tablet 15:09: mouth 3 [place] [address] (three) Medical times [place] daily. Armodafinil Yes 250mg Take 250 U nivers (NUVIGIL) 5-12 mg by ity of 250 mg Tab 15:09: mouth [place] [address] daily. Medical Branch cycloSPORIN Yes 1[drp] Place 1 U nivers E 5-12 Drop in ity of (RESTASIS) 15:09: both eyes [place] 0.05 % 27 every 12 Medical drops (twelve) Branch hours. aspirin 81 Yes 81mg Take 81 mg U nivers mg chewable 5-12 by mouth ity of tablet 15:09: daily. [address] atorvastati Yes 10mg Take 10 mg Univers n 10 mg 5-12 by mouth. ity of tablet 15:09: [address] doxepin 10 Yes 10mg Take 10 mg U nivers mg capsule 5-12 by mouth. ity of 15:09: [address] insulin Yes 160U inject 160 Univ ers glargine 5-12 Units ity of U-300 conc 15:09: under the [place] (TOUJEO 27 skin. Medical SOLOSTAR Branch U-300 INSULIN) 300 unit/mL (1.5 mL) InPn lithium Yes 300mg Take 300 Unive rs carbonate 5-12 mg by ity of 300 mg 15:09: mouth. [address] SERTraline Yes 50mg Take 50 mg U nivers 50 mg 5-12 by mouth. ity of tablet 15:09: [address] celecoxib Yes 200mg Take 200 Uni vers (CELEBREX) 5-12 mg by ity of 200 mg 15:09: mouth 2 [place] [address] (two) Medical times Branch daily. hydroxychlo Yes 200mg Take 200 U nivers roquine 200 5-12 mg by ity of mg tablet 15:09: mouth 2 [place] [address] (two) Medical times Branch daily. cyclobenzap Yes 10mg Take 10 mg Univers rine 10 mg 5-12 by mouth 3 ity of tablet 15:09: (three) [place] [address] times Medical daily. Branch pilocarpine Yes 7.5mg Take 7.5 U nivers 7.5 mg 5-12 mg by ity of tablet 15:09: mouth 3 [place] [address] (three) Medical times [place] daily. Armodafinil Yes 250mg Take 250 U nivers (NUVIGIL) 5-12 mg by ity of 250 mg Tab 15:09: mouth [place] [address] daily. Medical Branch cycloSPORIN Yes 1[drp] Place 1 U nivers E 5-12 Drop in ity of (RESTASIS) 15:09: both eyes [place] 0.05 % 27 every 12 Medical drops (twelve) Branch hours. aspirin 81 Yes 81mg Take 81 mg U nivers mg chewable 5-12 by mouth ity of tablet 15:09: daily. [address] Branch atorvastati Yes 10mg Take 10 mg Univers n 10 mg 5-12 by mouth. ity of tablet 15:09: [address] doxepin 10 Yes 10mg Take 10 mg U nivers mg capsule 5-12 by mouth. ity of 15:09: [address] insulin Yes 160U inject 160 Univ ers glargine 5-12 Units ity of U-300 conc 15:09: under the [place] (TOUJEO 27 skin. Medical SOLOSTAR Branch U-300 INSULIN) 300 unit/mL (1.5 mL) InPn lithium Yes 300mg Take 300 Unive rs carbonate 5-12 mg by ity of 300 mg 15:09: mouth. [place] [address] Medical Branch SERTraline Yes 50mg Take 50 mg U nivers 50 mg 5-12 by mouth. ity of tablet 15:09: [address] celecoxib Yes 200mg Take 200 Uni vers (CELEBREX) 5-12 mg by ity of 200 mg 15:09: mouth 2 [place] [address] (two) Medical times Branch daily. hydroxychlo Yes 200mg Take 200 U nivers roquine 200 5-12 mg by ity of mg tablet 15:09: mouth 2 [place] [address] (two) Medical times Branch daily. cyclobenzap Yes 10mg Take 10 mg Univers rine 10 mg 5-12 by mouth 3 ity of tablet 15:09: (three) [place] [address] times Medical daily. Branch pilocarpine Yes 7.5mg Take 7.5 U nivers 7.5 mg 5-12 mg by ity of tablet 15:09: mouth 3 [place] [address] (three) Medical times [place] daily. Armodafinil Yes 250mg Take 250 U nivers (NUVIGIL) 5-12 mg by ity of 250 mg Tab 15:09: mouth [place] [address] daily. Medical Branch cycloSPORIN Yes 1[drp] Place 1 U nivers E 5-12 Drop in ity of (RESTASIS) 15:09: [place] eyes [place] 0.05 % 27 every 12 Medical drops (twelve) Branch hours. aspirin 81 Yes 81mg Take 81 mg U nivers mg chewable 5-12 by mouth ity of tablet 15:09: daily. [address] atorvastati Yes 10mg Take 10 mg Univers n 10 mg 5-12 by mouth. ity of tablet 15:09: [address] doxepin 10 Yes 10mg Take 10 mg U nivers mg capsule 5-12 by mouth. ity of 15:09: [address] insulin Yes 160U inject 160 Univ ers glargine 5-12 Units ity of U-300 conc 15:09: under the [place] ([place]OUJE[place] 27 skin. Medical SOLOSTAR Branch U-300 INSULIN) 300 unit/mL (1.5 mL) InPn lithium Yes 300mg Take 300 Unive rs carbonate 5-12 mg by ity of 300 mg 15:09: mouth. [place] [address] Medical Branch SERTraline Yes 50mg Take 50 mg U nivers 50 mg 5-12 by mouth. ity of tablet 15:09: [address] celecoxib Yes 200mg Take 200 Uni vers (CELEBREX) 5-12 mg by ity of 200 mg 15:09: mouth 2 [place] [address] (two) Medical times Branch daily. hydroxychlo Yes 200mg Take 200 U nivers roquine 200 5-12 mg by ity of mg tablet 15:09: mouth 2 [place] [address] (two) Medical times Branch daily. cyclobenzap Yes 10mg Take 10 mg Univers rine 10 mg 5-12 by mouth 3 ity of tablet 15:09: (three) [address] daily. Branch pilocarpine Yes 7.5mg Take 7.5 U nivers 7.5 mg 5-12 mg by ity of tablet 15:09: mouth 3 [place] [address] (three) Medical times [place] daily. Armodafinil Yes 250mg Take 250 U nivers (NUVIGIL) 5-12 mg by ity of 250 mg Tab 15:09: mouth [place] [address] daily. Medical Branch cycloSPORIN Yes 1[drp] Place 1 U nivers E 5-12 Drop in ity of (RESTASIS) 15:09: [place] eyes [place] 0.05 % 27 every 12 Medical drops (twelve) Branch hours. aspirin 81 Yes 81mg Take 81 mg U nivers mg chewable 5-12 by mouth ity of tablet 15:09: daily. [address] atorvastati Yes 10mg Take 10 mg Univers n 10 mg 5-12 by mouth. ity of tablet 15:09: [address] doxepin 10 Yes 10mg Take 10 mg U nivers mg capsule 5-12 by mouth. ity of 15:09: [address] insulin Yes 160U inject 160 Univ ers glargine 5-12 Units ity of U-300 conc 15:09: under the [place] ([place]OUJEO 27 skin. Medical SOLOSTAR Branch U-300 INSULIN) 300 unit/mL (1.5 mL) InPn lithium Yes 300mg Take 300 Unive rs carbonate 5-12 mg by ity of 300 mg 15:09: mouth. [place] [address] Medical Branch SERTraline Yes 50mg Take 50 mg U nivers 50 mg 5-12 by mouth. ity of tablet 15:09: [address] celecoxib Yes 200mg Take 200 Uni vers (CELEBREX) 5-12 mg by ity of 200 mg 15:09: mouth 2 [place] [address] (two) Medical times [place] daily. hydroxychlo Yes 200mg Take 200 U nivers roquine 200 5-12 mg by ity of mg tablet 15:09: mouth 2 [place] [address] (two) Medical times [place] daily. cyclobenzap Yes 10mg Take 10 mg Univers rine 10 mg 5-12 by mouth 3 ity of tablet 15:09: (three) [address] daily. Branch pilocarpine Yes 7.5mg Take 7.5 U nivers 7.5 mg 5-12 mg by ity of tablet 15:09: mouth 3 [place] [address] (three) Medical times [place] daily. Armodafinil Yes 250mg Take 250 U nivers (NUVIGIL) 5-12 mg by ity of 250 mg Tab 15:09: mouth [place] [address] daily. Medical Branch cycloSPORIN Yes 1[drp] Place 1 U nivers E 5-12 Drop in ity of (RESTASIS) 15:09: both eyes [place] 0.05 % 27 every 12 Medical drops (twelve) Branch hours. aspirin 81 Yes 81mg Take 81 mg U nivers mg chewable 5-12 by mouth ity of tablet 15:09: daily. [address] atorvastati Yes 10mg Take 10 mg Univers n 10 mg 5-12 by mouth. ity of tablet 15:09: [address] doxepin 10 Yes 10mg Take 10 mg U nivers mg capsule 5-12 by mouth. ity of 15:09: [address] insulin Yes 160U inject 160 Univ ers glargine 5-12 Units ity of U-300 conc 15:09: under the [place] ([place]OUJEO 27 skin. Medical SOLOSTAR Branch U-300 INSULIN) 300 unit/mL (1.5 mL) InPn lithium Yes 300mg Take 300 Unive rs carbonate 5-12 mg by ity of 300 mg 15:09: mouth. [place] capsule Medical Branch SERTraline Yes 50mg Take 50 mg U nivers 50 mg 5-12 by mouth. ity of tablet 15:09: [address] celecoxib Yes 200mg Take 200 Uni vers (CELEBREX) 5-12 mg by ity of 200 mg 15:09: mouth 2 [place] [address] (two) Medical times Branch daily. hydroxychlo Yes 200mg Take 200 U nivers roquine 200 5-12 mg by ity of mg tablet 15:09: mouth 2 [place] [address] (two) Medical times [place] daily. cyclobenzap Yes 10mg Take 10 mg Univers rine 10 mg 5-12 by mouth 3 ity of tablet 15:09: (three) [address] daily[address] Branch pilocarpine Yes 7.5mg Take 7.5 U nivers 7.5 mg 5-12 mg by ity of tablet 15:09: mouth 3 [place] [address] (three) Medical times Branch daily. Armodafinil Yes 250mg Take 250 U nivers (NUVIGIL) 5-12 mg by ity of 250 mg Tab 15:09: mouth [place] [address] daily. Medical Branch cycloSPORIN Yes 1[drp] Place 1 U nivers E 5-12 Drop in ity of (RESTASIS) 15:09: both eyes [place] 0.05 % 27 every 12 Medical drops (twelve) Branch hours. aspirin 81 Yes 81mg Take 81 mg U nivers mg chewable 5-12 by mouth ity of tablet 15:09: daily. [address] Branch atorvastati Yes 10mg Take 10 mg Univers n 10 mg 5-12 by mouth. ity of tablet 15:09: [address] doxepin 10 Yes 10mg Take 10 mg U nivers mg capsule 5-12 by mouth. ity of 15:09: [address] exenatide Yes 2mg inject 2 Univ ers microsphere [...] 40 Medical injection Branch oxybutynin 2020-0 Yes [id number] 5mg Take 1 U nivers XL 5 mg 24 5-12 tablet by ity of hr tablet 00:00: mouth [place] 00 daily. Medical Branch oxybutynin 2020-0 Yes [id number] 5mg Take 1 U nivers XL 5 mg 24 5-12 tablet by ity of hr tablet 00:00: mouth [place] 00 daily. Medical Branch oxybutynin 2020-0 Yes [id number] 5mg Take 1 U nivers XL 5 mg 24 5-12 tablet by ity of hr tablet 00:00: mouth [place] 00 daily. Medical Branch oxybutynin 2020-0 Yes [id number] 5mg Take 1 U nivers XL 5 mg 24 5-12 tablet by ity of hr tablet 00:00: mouth [place] 00 daily. Medical Branch oxybutynin 2020-0 Yes [id number] 5mg Take 1 U nivers XL 5 mg 24 5-12 tablet by ity of hr tablet 00:00: mouth [place] 00 daily. Medical Branch oxybutynin 2020-0 Yes [id number] 5mg Take 1 U nivers XL 5 mg 24 5-12 tablet by ity of hr tablet 00:00: mouth [place] 00 daily. Medical Branch oxybutynin 2020-0 Yes [id number] 5mg Take 1 U nivers XL 5 mg 24 5-12 tablet by ity of hr tablet 00:00: mouth [place] 00 daily. Medical Branch oxybutynin 2020-0 Yes [id number] 5mg Take 1 U nivers XL 5 mg 24 5-12 tablet by ity of hr tablet 00:00: mouth [place] 00 daily. Medical Branch oxybutynin 2020-0 Yes [id number] 5mg Take 1 U nivers XL 5 mg 24 5-12 tablet by ity of hr tablet 00:00: mouth [place] 00 daily. Medical Branch oxybutynin 2020-0 Yes [id number] 5mg Take 1 U nivers XL 5 mg 24 5-12 tablet by ity of hr tablet 00:00: mouth [place] 00 daily. Medical Branch oxybutynin 2020-0 Yes [id number] 5mg Take 1 U nivers XL 5 mg 24 5-12 tablet by ity of hr tablet 00:00: mouth [place] 00 daily. Medical Branch oxybutynin 2020-0 Yes [id number] 5mg Take 1 U nivers XL 5 mg 24 5-12 tablet by ity of hr tablet 00:00: mouth [place] 00 daily. Medical Branch oxybutynin 2020-0 Yes [id number] 5mg Take 1 U nivers XL 5 mg 24 5-12 tablet by ity of hr tablet 00:00: mouth [place] 00 daily. Medical Branch oxybutynin 2020-0 Yes [id number] 5mg Take 1 U nivers XL 5 mg 24 5-12 tablet by ity of hr tablet 00:00: mouth [place] 00 daily. Medical Branch armodafinil 2020-0 Yes 250mg QD Take 250 U T (Nuvigil) 5-12 mg by Health 250 MG 00:00: mouth 1 tablet 00 (one) time each day. aspirin 81 2021-0 Yes 81mg Chew 81 [facility] MG chewable 5-12 mg. Health tablet 00:00: 00 armodafinil 2020-0 Yes 250mg QD Take 250 U T (Nuvigil) 5-12 mg by Health 250 MG 00:00: mouth 1 tablet 00 (one) time each day. aspirin 81 2020-0 Yes 81mg Chew 81 [facility] MG chewable 5-12 mg. Health tablet 00:00: 00 armodafinil 2020-0 Yes 250mg QD Take 250 U T (Nuvigil) 5-12 mg by Health 250 MG 00:00: mouth 1 tablet 00 (one) time each day. aspirin 81 2020-0 Yes 81mg Chew 81 [facility] MG chewable 5-12 mg. Health tablet 00:00: 00 armodafinil 2020-0 Yes 250mg QD Take 250 U T (Nuvigil) 5-12 mg by Health 250 MG 00:00: mouth 1 tablet 00 (one) time each day. aspirin 81 2020-0 Yes 81mg Chew 81 [facility] MG chewable 5-12 mg. Health tablet 00:00: 00 metformin 1-0 Yes Univers ER 500 mg 5-10 ity of 24 hr 00:00: [place] tablet 00 [facility] metformin 2021-0 Yes Univers ER 500 mg 5-10 ity of 24 hr 00:00: [place] tablet [facility] metformin 2021-0 Yes Univers ER 500 mg 5-10 ity of 24 hr 00:00: [place] tablet 00 [facility] metformin 2021-0 Yes Univers ER 500 mg 5-10 ity of 24 hr 00:00: [place] tablet [facility] metformin 2021-0 Yes Univers ER 500 mg 5-10 ity of 24 hr 00:00: [place] tablet 00 [facility] metformin 2021-0 Yes Univers ER 500 mg 5-10 ity of 24 hr 00:00: [place] tablet 00 [facility] metformin 2021-0 Yes Univers ER 500 mg 5-10 ity of 24 hr 00:00: [place] tablet 00 [facility] metformin 2021-0 Yes Univers ER 500 mg 5-10 ity of 24 hr 00:00: [place] tablet 00 [facility] metformin 2021-0 Yes Univers ER 500 mg 5-10 ity of 24 hr 00:00: [place] tablet 00 [facility] metformin 2021-0 Yes Univers ER 500 mg [...] hr 00:00: [place] tablet 00 Medical Branch gabapentin 2021-0 Yes Univers 300 mg 4-23 ity of capsule 00:00: [place] 00 Medical Branch gabapentin 2021-0 Yes Univers 300 mg 4-23 ity of capsule 00:00: [place] [address] Medical Branch gabapentin 2021-0 Yes Univers 300 mg 4-23 ity of capsule 00:00: [place] [address] Medical Branch gabapentin 2021-0 Yes Univers 300 mg 4-23 ity of capsule 00:00: [place] [address] Medical Branch gabapentin 2021-0 Yes Univers 300 mg 4-23 ity of capsule 00:00: [place] [address] Medical Branch gabapentin 2021-0 Yes Univers 300 mg 4-23 ity of capsule 00:00: [place] [address] Medical Branch gabapentin 2021-0 Yes Univers 300 mg 4-23 ity of capsule 00:00: [place] [address] Medical Branch gabapentin 2021-0 Yes Univers 300 mg 4-23 ity of capsule 00:00: [place] [address] Medical Branch gabapentin 2021-0 Yes Univers 300 mg 4-23 ity of capsule 00:00: [place] [address] Medical Branch gabapentin 2021-0 Yes Univers 300 mg 4-23 ity of capsule 00:00: [place] [address] Medical Branch gabapentin 2021-0 Yes Univers 300 mg 4-23 ity of capsule 00:00: [place] [address] Medical Branch gabapentin 2021-0 Yes Univers 300 mg 4-23 ity of capsule 00:00: [place] [address] Medical Branch gabapentin 2021-0 Yes Univers 300 mg 4-23 ity of capsule 00:00: [place] [address] Medical Branch gabapentin 2021-0 Yes Univers 300 mg 4-23 ity of capsule 00:00: [place] [address] Medical Branch lisinopriL- 2020-0 Yes Univer s hydrochloro 4-07 ity of thiazide 00:00: [place] 20-12.5 mg 00 Medical per tablet Branch lisinopriL- Yes Univ s hydrochloro 4-07 ity of thiazide 00:00: [place] 20-12.5 mg 00 Medical per tablet Branch lisinopriL- Yes Univer s hydrochloro 4-07 ity of thiazide 00:00: [place] 20-12.5 mg 00 Medical per tablet Branch lisinopriL- 0 Yes Univer s hydrochloro 4-07 ity of thiazide 00:00: [place] 20-12.5 mg 00 Medical per tablet Branch lisinopriL- Yes Univer s hydrochloro 4-07 ity of thiazide 00:00: [place] 20-12.5 mg 00 Medical per tablet Branch lisinopriL- Yes Univ s hydrochloro 4-07 ity of thiazide 00:00: [place] 20-12.5 mg 00 Medical per tablet Branch lisinopriL- Yes [facility] s hydrochloro 4-07 ity of thiazide 00:00: [place] 20-12.5 mg 00 Medical per tablet Branch lisinopriL- Yes [facility] s hydrochloro 4-07 ity of thiazide 00:00: [place] 20-12.5 mg 00 Medical per tablet Branch lisinopriL- Yes Univ s hydrochloro 4-07 ity of thiazide 00:00: [place] 20-12.5 mg 00 Medical per tablet Branch lisinopriL- Yes [facility] s hydrochloro 4-07 ity of thiazide 00:00: [place] 20-12.5 mg 00 Medical per tablet Branch lisinopriL- 0 Yes [facility] s hydrochloro 4-07 ity of thiazide 00:00: [place] 20-12.5 mg 00 Medical per tablet Branch lisinopriL- 0 Yes Univ s hydrochloro 4-07 ity of thiazide 00:00: [place] 20-12.5 mg 00 Medical per tablet Branch lisinopriL- 0 Yes Univ s hydrochloro 4-07 ity of thiazide 00:00: [place] 20-12.5 mg 00 Medical per tablet Branch lisinopriL- 0 Yes Univ s hydrochloro 4-07 ity of thiazide 00:00: [place] 20-12.5 mg 00 Medical per tablet Branch thiamine 2020- No 50mg QD Take 0.5 Meth gwen mononitrate 3-27 04-[address] , vit B1, 00:00: 04:59 (50 mg Hospi ta (B-1) 100 00 :00 total) by l mg tablet mouth daily for 30 days. cyclobenzap 2020- No 10mg [id number] Take 10 mg [facility] rine 3-26 03-26 [id number] by mouth [address] (FLEXERIL) 21:43: 00:00 3D (three) Hos ileana 10 MG 22 :00 times a l tablet day. LISINOPRIL- Yes 2{tbl} QD Take 2 [...] 21:43: nightly. Hospita capsule 19 l leflunomide Yes 20mg QD Take 20 mg [facility] (ARAVA) 20 3-[address] MG tablet 21:43: nightly. Hosp ruiz 19 l atorvastati 0 Yes 10mg QD Take 10 mg [facility] n (LIPITOR) 3-[address] 10 mg 21:43: nightly. Hospita tablet 19 l lithium 300 2020-0 Yes 300mg Q.[id number] Take 300 [facility] MG capsule 3-[id number] 21:43: 3D mouth 3 Hospita 19 (three) l times a day with meals. metFORMIN 0 Yes 1000mg Q.5D Take 1,000 [facility] XR 3-[address] (GLUCOPHAGE 21:43: mouth 2 Hos ileana -XR) 500 mg 19 (two) l 24 hr times a tablet day with meals. sertraline 0 Yes 50mg QD Take 50 mg M ethodi (ZOLOFT) 50 3-[address] MG tablet 21:43: daily. Hospit a 19 l golimumab 2020-0 Yes Q30D Infuse Method i (SIMPONI 3-[address] ARIA IV) 21:43: venous Hospita 19 catheter l every 30 (thirty) days. insulin 0 Yes 22U Q.[id number] Inject 22 [facility] lispro 3-[id number] (HUMALOG 21:43: 3D under the [...] Insulin) 300 unit/mL (1.5 mL) insulin pen celecoxib 0 Yes 200mg Q.5D Take 200 [facility] (CeleBREX) 3-[address] 200 MG 21:43: mouth 2 Hospita capsule 19 (two) l times a day. hydroxychlo 2020-0 Yes Q.5D Take by Met hodi roquine 3-[address] (PLAQUENIL) 21:43: (two) Hospi ta 200 mg 19 times a l tablet day. PILOCARPINE 2021-0 Yes 7.5mg Q.[id number] Take 7.5 [facility] HCL ORAL 05-[id number] 21:43: 3D mouth 3 Hospita 19 (three) l times a day. cycloSPORIN Yes 1 drop [facility] E 05-05 into Health (Restasis) 00:00: affected 0.05 % 00 eye ophthalmic emulsion cycloSPORIN Yes 1 drop [facility] E 05-05 into Health (Restasis) 00:00: affected 0.05 % 00 eye ophthalmic emulsion cycloSPORIN Yes 1 drop [facility] E 05-05 into Health (Restasis) 00:00: affected 0.05 % 00 eye ophthalmic emulsion cycloSPORIN Yes 1 drop [facility] E 05-05 into Health (Restasis) 00:00: affected 0.05 % 00 eye ophthalmic emulsion predniSONE 2020- No 20mg QD Take 1 Meth gwen (DELTASONE) 05-05- tablet (20 s t 20 mg 00:00: 04:59 mg total) Hospit a tablet 00 :00 by mouth l daily for 5 days. suvorexant 2020- No QD Take by Met hodi (BELSOMRA) 05-04-[address] 20 mg 21:42: 00:00 nightly. Hospita tablet 42 :00 l simvastatin 2020- No 40mg QD Take 40 mg [facility] (ZOCOR) 40 05-04-[address] MG tablet 21:42: 00:00 nightly. Hos ileana 25 :00 l milnacipran 2020- No 50mg Q.5D Take 50 mg [facility] (SAVELLA) 05-04-[address] 50 mg 21:41: 00:00 (two) Hospita tablet 54 :00 times a l day. METHOTREXAT 2020- No .7mL Q7D Inject 0.7 [facility] E SODIUM 05-04 03-[address] INJ 21:41: 00:00 directed Hospita 41 :00 once a l week at 4pm. insulin 2020- No 120U QD Inject 120 Met hodi degludec -25 03-[address] (TRESIBA 21:41: 00:00 under the Hos ileana FLEXTOUCH 18 :00 skin l U-100) 100 daily. unit/mL (3 mL) insulin pen folic acid 2mg QD Take 2 mg M ethodi [...] 2020- No 1[drp] QD Administer [facility] (XIBROM) 05-[address] 0.09 % 21:37: 00:00 into the Hospit a ophthalmic 23 :00 left eye l solution daily. ARIPiprazol No 20mg QD Take 20 mg Method[facility] e (ABILIFY) 05-[address] 10 MG 21:36: 00:00 daily. Hospita tablet 49 :00 l Amoxicillin Amoxicillin 2019- No [facility] [address] [facility] 10[facility] atorvastati 2019-0 Yes 1 tablet [facility] n (Lipitor) 8-20 Health 10 MG 00:00: tablet 00 atorvastati 2019-0 Yes 1 tablet [facility] n (Lipitor) 8-20 Health 10 MG 00:00: tablet 00 atorvastati 2019-0 Yes 1 tablet [facility] n (Lipitor) 8-20 Health 10 MG 00:00: tablet 00 atorvastati 2020-0 Yes 1 tablet [facility] n (Lipitor) 8-20 Health 10 MG 00:00: tablet 00 Furosemide Furosemide 2018-0 Yes [facility] 0.[address] [facility] 5[facility]01 [facility] - 00:[facility]: [facility] 00 l [facility] ent Clinics Hydrocodone Hydrocodone 2017-02 Yes [place] [address] [facility] [address] -Acetaminop -Acetaminop 0-01 [facility] - [facility] hen 00:00: [facility] 00 l [facility] ent [facility] Tolterodine Tolterodine Yes BLACK 1 PO QD Univers Tartrate ER Tartrate ER 4-30 [place] ity of 4 MG Oral 4 MG Oral 00:00: N.P. Lionel as Capsule Capsule 00 Physici Extended Extended ans Release 24 Release 24 Hour Hour sulfamethox 2017-0 Yes 1{tbl} Take 1 Un [...] sulfamethox 2017-0 Yes 1{tbl} Take 1 Un emanule azole-trime 7-31 tablet by ity of thoprim [...] by mouth ity of tablet 18:18: at [place] 54 bedtime. Medical Branch traZODONE 2017-0 Yes 100mg Take Univers 100 mg 6-15 100-200 mg ity of tablet 18:18: by mouth [place] [address] at bedtime Medical as needed Branch for Insomnia. ARIPiprazol 20170 Yes 20mg Take 20 mg Univers e (ABILIFY) 6-15 by mouth ity of 20 mg 18:18: at [place] [facility] 54 bedtime. Medical Branch suvorexant 20170 Yes 20mg Take 20 mg U nivers (BELSOMRA) 6-15 by mouth ity o f 20 mg Tab 18:18: at [place] [address] bedtime. Medical Branch prednisoLON 20170 Yes 1[drp] 1 Drop Un emanuel E acetate 1 6-15 every 2 ity o f % 18:18: (two) [place] ophthalmic 54 hours as Medic al suspension needed for Bra nch drops Itching. foLIC acid 20170 Yes 2mg Take 2 mg Un emanuel 1 mg tablet 6-15 by mouth ity of 18:18: daily. [place] [address] Medical Branch simvastatin 20170 Yes 40mg Take 40 mg Univers 40 mg 6-15 by mouth ity of tablet 18:18: at [place] [address] bedtime. Medical Branch traZODONE 20170 Yes 100mg Take Univers 100 mg 6-15 100-200 mg ity of tablet 18:18: by mouth [place] [address] at bedtime Medical as needed Branch for Insomnia. ARIPiprazol 2017 Yes 20mg Take 20 mg Univers e (ABILIFY) 6-15 by mouth ity of 20 mg 18:18: at [place] [address] bedtime. Medical Branch suvorexant 2017 Yes 20mg Take 20 mg U nivers (BELSOMRA) 6-15 by mouth ity o f 20 mg Tab 18:18: at [place] [address] bedtime. Medical Branch prednisoLON 20170 Yes 1[drp] 1 Drop Un emanuel E acetate 1 6-15 every 2 ity o f % 18:18: (two) [place] ophthalmic 54 hours as Medic al suspension needed for Bra nch drops Itching. foLIC acid 20170 Yes 2mg Take 2 mg Un emanuel 1 mg tablet 6-15 by mouth ity of 18:18: daily. [place] [address] Medical Branch simvastatin 2017-0 Yes 40mg Take 40 mg Univers 40 mg 6-15 by mouth ity of tablet 18:18: at [place] [address] bedtime. Medical Branch traZODONE 2017-0 Yes 100mg Take Univers 100 mg 6-15 100-200 mg ity of tablet 18:18: by mouth [place] [address] at bedtime Medical as needed Branch for Insomnia. ARIPiprazol 2017-0 Yes 20mg Take 20 mg Univers e (ABILIFY) 6-15 by mouth ity of 20 mg 18:18: at [place] [address] bedtime. Medical Branch suvorexant 2017-0 Yes 20mg Take 20 mg U nivers (BELSOMRA) 6-15 by mouth ity o f 20 mg Tab 18:18: at [place] [address] bedtime. Medical Branch prednisoLON 2017-0 Yes 1[drp] 1 Drop Un emanuel E acetate 1 6-15 every 2 ity o f % 18:18: (two) [place] ophthalmic 54 hours as Medic al suspension needed for Bra nch drops Itching. foLIC acid 2017-0 Yes 2mg Take 2 mg Un emanuel 1 mg tablet 6-15 by mouth ity of 18:18: daily. [place] [address] Medical Branch simvastatin 2017-0 Yes 40mg Take 40 mg Univers 40 mg 6-15 by mouth ity of tablet 18:18: at [place] [address] bedtime. Medical Branch traZODONE 20170 Yes 100mg Take Univers 100 mg 6-15 100-200 mg ity of tablet 18:18: by mouth [place] [address] at bedtime Medical as needed Branch for Insomnia. ARIPiprazol 20170 Yes 20mg Take 20 mg Univers e (ABILIFY) 6-15 by mouth ity of 20 mg 18:18: at [place] [address] bedtime. Medical Branch suvorexant 2017-0 Yes 20mg Take 20 mg U nivers (BELSOMRA) 6-15 by mouth ity o f 20 mg Tab 18:18: at [place] [address] bedtime. Medical Branch prednisoLON 2017-0 Yes 1[drp] 1 Drop Un emanuel E acetate 1 6-15 every 2 ity o f % 18:18: (two) [place] [facility] hours as Medic al suspension needed for Bra nch drops Itching. foLIC acid 2017-0 Yes 2mg Take 2 mg Un emanuel 1 mg tablet 6-15 by mouth ity of 18:18: daily. [place] [address] Medical Branch simvastatin 2017-0 Yes 40mg Take 40 mg Univers 40 mg 6-15 by mouth ity of tablet 18:18: at [place] 54 bedtime. Medical Branch traZODONE 2017-0 Yes 100mg Take Univers 100 mg 6-15 100-200 mg ity of tablet 18:18: by mouth [place] [address] at bedtime Medical as needed Branch for Insomnia. ARIPiprazol 2017-0 Yes 20mg Take 20 mg Univers e (ABILIFY) 6-15 by mouth ity of 20 mg 18:18: at [facility] 54 bedtime. Medical Branch suvorexant 2017-0 Yes 20mg Take 20 mg U nivers (BELSOMRA) 6-15 by mouth ity o f 20 mg Tab 18:18: at [place] [address] bedtime. Medical Branch prednisoLON 2017-0 Yes 1[drp] 1 Drop Un emanuel E acetate 1 6-15 every 2 ity o f % 18:18: (two) [place] [facility] 54 hours as Medic al suspension needed for Bra nch drops Itching. foLIC acid 20170 Yes 2mg Take 2 mg Un emanuel 1 mg tablet 6-15 by mouth ity of 18:18: daily. [place] [address] Medical Branch simvastatin 2017-0 Yes 40mg Take 40 mg Univers 40 mg 6-15 by mouth ity of tablet 18:18: at [place] [address] bedtime. Medical Branch traZODONE 20170 Yes 100mg Take Univers 100 mg 6-15 100-200 mg ity of tablet 18:18: by mouth [place] [address] at bedtime Medical as needed Branch for Insomnia. ARIPiprazol 2017-0 Yes 20mg Take 20 mg Univers e (ABILIFY) 6-15 by mouth ity of 20 mg 18:18: at [place] [address] bedtime. Medical Branch suvorexant 2017-0 Yes 20mg Take 20 mg U nivers (BELSOMRA) 6-15 by mouth ity o f 20 mg Tab 18:18: at [place] [address] bedtime. Medical Branch prednisoLON 2017-0 Yes 1[drp] 1 Drop Un emanuel E acetate 1 6-15 every 2 ity o f % 18:18: (two) [place] [facility] 54 hours as Medic al suspension needed for Bra nch drops Itching. foLIC acid 2017-0 Yes 2mg Take 2 mg Un emanuel 1 mg tablet 6-15 by mouth ity of 18:18: daily. [place] [address] Medical Branch foLIC acid 2017-0 Yes 2mg Take 2 mg Un emanuel 1 mg tablet 6-15 by mouth ity of 13:18: daily. [place] [address] Medical Branch simvastatin 2017-0 Yes 40mg Take 40 mg Univers 40 mg 6-15 by mouth ity of tablet 13:18: at [place] [address] bedtime. Medical Branch traZODONE 2017-0 Yes 100mg Take Univers 100 mg 6-15 100-200 mg ity of tablet 13:18: by mouth [place] [address] at bedtime Medical as needed Branch for Insomnia. ARIPiprazol [id number] Yes 20mg Take 20 mg Univers e (ABILIFY) 6-15 by mouth ity of 20 mg 13:18: at [place] [address] bedtime. Medical Branch suvorexant 20170 Yes 20mg Take 20 mg U nivers (BELSOMRA) 6-15 by mouth ity o f 20 mg Tab 13:18: at [place] [address] bedtime. Medical Branch prednisoLON 2017-0 Yes 1[drp] 1 Drop Un emanuel E acetate 1 6-15 every 2 ity o f % 13:18: (two) [place] [facility] 54 hours as Medic al suspension needed for Bra nch drops Itching. foLIC acid 20170 Yes 2mg Take 2 mg Un emanuel 1 mg tablet 6-15 by mouth ity of 13:18: daily. [place] [address] Medical Branch simvastatin 2017-0 Yes 40mg Take 40 mg Univers 40 mg 6-15 by mouth ity of tablet 13:18: at [place] [address] bedtime. Medical Branch traZODONE 20170 Yes 100mg Take Univers 100 mg 6-15 100-200 mg ity of tablet 13:18: by mouth [place] [address] at bedtime Medical as needed Branch for Insomnia. ARIPiprazol 20170 Yes 20mg Take 20 mg Univers e (ABILIFY) 6-15 by mouth ity of 20 mg 13:18: at [place] [address] bedtime. Medical Branch suvorexant 2017-0 Yes 20mg Take 20 mg U nivers (BELSOMRA) 6-15 by mouth ity o f 20 mg Tab 13:18: at [place] [address] bedtime. Medical Branch prednisoLON 2017-0 Yes 1[drp] 1 Drop Un emanuel E acetate 1 6-15 every 2 ity o f % 13:18: (two) [place] [facility] 54 hours as Medic al suspension needed for Bra nch drops Itching. foLIC acid 2017-0 Yes 2mg Take 2 mg Un emanuel 1 mg tablet 6-15 by mouth ity of 13:18: daily. [place] [address] Medical Branch simvastatin 2017-0 Yes 40mg Take 40 mg Univers 40 mg 6-15 by mouth ity of tablet 13:18: at [place] [address] bedtime. Medical Branch traZODONE 2017-0 Yes 100mg Take Univers 100 mg 6-15 100-200 mg ity of tablet 13:18: by mouth [place] [address] at bedtime Medical as needed Branch for Insomnia. ARIPiprazol 2017-0 Yes 20mg Take 20 mg Univers e (ABILIFY) 6-15 by mouth ity of 20 mg 13:18: at [place] [address] bedtime. Medical Branch suvorexant 2017-0 Yes 20mg Take 20 mg U nivers (BELSOMRA) 6-15 by mouth ity o f 20 mg Tab 13:18: at [place] [address] bedtime. Medical Branch prednisoLON 2017-0 Yes 1[drp] 1 Drop Un emanuel E acetate 1 6-15 every 2 ity o f % 13:18: (two) [place] [facility] 54 hours as Medic al suspension needed for Bra nch drops Itching. foLIC acid 20170 Yes 2mg Take 2 mg Un emanuel 1 mg tablet 6-15 by mouth ity of 13:18: daily. [place] [address] Medical Branch simvastatin 2017-0 Yes 40mg Take 40 mg Univers 40 mg 6-15 by mouth ity of tablet 13:18: at [place] [address] bedtime. Medical Branch traZODONE 20170 Yes 100mg Take Univers 100 mg 6-15 100-200 mg ity of tablet 13:18: by mouth [place] [address] at bedtime Medical as needed Branch for Insomnia. ARIPiprazol 2017-0 Yes 20mg Take 20 mg Univers e (ABILIFY) 6-15 by mouth ity of 20 mg 13:18: at [place] [address] bedtime. Medical Branch suvorexant 2017-0 Yes 20mg Take 20 mg U nivers (BELSOMRA) 6-15 by mouth ity o f 20 mg Tab 13:18: at [place] [address] bedtime. Medical Branch prednisoLON 2017-0 Yes 1[drp] 1 Drop Un emanuel E acetate 1 6-15 every 2 ity o f % 13:18: (two) [place] [facility] 54 hours as Medic al suspension needed for Bra nch drops Itching. foLIC acid 2017-0 Yes 2mg Take 2 mg Un emanuel 1 mg tablet 6-15 by mouth ity of 13:18: daily. [place] [address] Medical Branch simvastatin 2017-0 Yes 40mg Take 40 mg Univers 40 mg 6-15 by mouth ity of tablet 13:18: at [place] [address] bedtime. Medical Branch traZODONE 2017-0 Yes 100mg Take Univers 100 mg 6-15 100-200 mg ity of tablet 13:18: by mouth [place] [address] at bedtime Medical as needed Branch for Insomnia. ARIPiprazol 2017-0 Yes 20mg Take 20 mg Univers e (ABILIFY) 6-15 by mouth ity of 20 mg 13:18: at [place] [address] bedtime. Medical Branch suvorexant 2017-0 Yes 20mg Take 20 mg U nivers (BELSOMRA) 6-15 by mouth ity o f 20 mg Tab 13:18: at [place] [address] bedtime. Medical Branch prednisoLON 2017-0 Yes 1[drp] 1 Drop Un emanuel E acetate 1 6-15 every 2 ity o f % 13:18: (two) [place] [facility] 54 hours as Medic al suspension needed for Bra nch drops Itching. foLIC acid 20170 Yes 2mg Take 2 mg Un emanuel 1 mg tablet 6-15 by mouth ity of 13:18: daily. [place] [address] Medical Branch simvastatin 2017-0 Yes 40mg Take 40 mg Univers 40 mg 6-15 by mouth ity of tablet 13:18: at [place] [address] bedtime. Medical Branch traZODONE 20170 Yes 100mg Take Univers 100 mg 6-15 100-200 mg ity of tablet 13:18: by mouth [place] [address] at bedtime Medical as needed Branch for Insomnia. ARIPiprazol 2017-0 Yes 20mg Take 20 mg Univers e (ABILIFY) 6-15 by mouth ity of 20 mg 13:18: at [place] [address] bedtime. Medical Branch suvorexant 2017-0 Yes 20mg Take 20 mg U nivers (BELSOMRA) 6-15 by mouth ity o f 20 mg Tab 13:18: at [place] [address] bedtime. Medical Branch prednisoLON 2017-0 Yes 1[drp] 1 Drop Un emanuel E acetate 1 6-15 every 2 ity o f % 13:18: (two) [place] [facility] 54 hours as Medic al suspension needed for Bra nch drops Itching. foLIC acid 2017-0 Yes 2mg Take 2 mg Un emanuel 1 mg tablet 6-15 by mouth ity of 13:18: daily. [place] [address] Medical Branch simvastatin 2017-0 Yes 40mg Take 40 mg Univers 40 mg 6-15 by mouth ity of tablet 13:18: at [place] [address] bedtime. Medical Branch traZODONE 2017-0 Yes 100mg Take Univers 100 mg 6-15 100-200 mg ity of tablet 13:18: by mouth [place] [address] at bedtime Medical as needed Branch for Insomnia. ARIPiprazol 2017-0 Yes 20mg Take 20 mg Univers e (ABILIFY) 6-15 by mouth ity of 20 mg 13:18: at [place] [address] bedtime. Medical Branch suvorexant 2017-0 Yes 20mg Take 20 mg U nivers (BELSOMRA) 6-15 by mouth ity o f 20 mg Tab 13:18: at [place] [address] bedtime. Medical Branch prednisoLON 2017-0 Yes 1[drp] 1 Drop Un emanuel E acetate 1 6-15 every 2 ity o f % 13:18: (two) [place] [facility] 54 hours as Medic al suspension needed for Bra nch drops Itching. foLIC acid 2017-0 Yes 2mg Take 2 mg Un emanuel 1 mg tablet 6-15 by mouth ity of 13:18: daily. [place] [address] Medical Branch simvastatin 2017-0 Yes 40mg Take 40 mg Univers 40 mg 6-15 by mouth ity of tablet 13:18: at [place] [address] bedtime. Medical Branch traZODONE 2017-0 Yes 100mg Take Univers 100 mg 6-15 100-200 mg ity of tablet 13:18: by mouth [place] [address] at bedtime Medical as needed Branch for Insomnia. ARIPiprazol 2017-0 Yes 20mg Take 20 mg Univers e (ABILIFY) 6-15 by mouth ity of 20 mg 13:18: at [place] [address] bedtime. Medical Branch suvorexant 2017-0 Yes 20mg Take 20 mg U nivers (BELSOMRA) 6-15 by mouth ity o f 20 mg Tab 13:18: at [place] [address] bedtime. Medical Branch prednisoLON 2017-0 Yes 1[drp] 1 Drop Un emanuel E acetate 1 6-15 every 2 ity o f % 13:18: (two) [place] [facility] 54 hours as Medic al suspension needed for Bra nch drops Itching. Zetia 2015-0 No Notes: Memoria 08-10 (Same as: l 14:00: Zetia) [place] 00 Dexilant 2015-0 No 60 mg, Memoria 08-10 Route: PO, l 14:00: Drug form: [place] 00 DRC, Daily, Dosing Weight 134.5, kg, [...] 08-10 Route: PO, l 14:00: Drug form: [place] 00 CAP, Daily, Dosing Weight 134.5, kg, [...] CDT Savella 2015-0 No 50 mg, Memoria 08-09 Route: PO, l 22:00: Drug form: [place] 00 TAB, BID, Dosing Weight 134.5, kg, Start date: 08/10/15 17:00:00 CDT Ketorolac No 4 days Memor ia 6-30 l 17:00: MEDICATION WASTE Product Size: 30 mg Product Wasted: _15__ mg Insulin, No Notes: Memoria Aspart, 6-30 Roll in l Human 16:29: palms of [place] 00 hands gently; Do not shake vigorously . (Same as: NovoLOG) "single patient use only" WASTE: F/P - Black; E - Municipal Trash Bin Stable for 28 days at room temperatur e. Expires in days from ____Date Levalbutero No Notes: SEE Memoria l 6-30 RT l 16:29: DOCUMENTAT [place] 00 ION (Same as:Xopenex ) Non-Formul george [...] as: l / 16:29: Duoneb) Ipratropium 00 [place] 0.167 MG/ML Inhalant Solution [DuoNeb] celecoxib Yes Notes: Memori a 6-30 NSAID. l 16:29: Please [place] 00 check indication . Not for seizure. (Same As: CeleBREX) 72 HR Yes Notes: Memoria Scopolamine -30 Change l 0.0139 16:29: patch [place] MG/HR 00 every 72 Transdermal hours Patch (Same as: Transderm- Scop) Midazolam No Notes: Memori a -30 (Same as: l 16:29: Versed) MEDICATION WASTE Product Size: 2 mg Product Wasted: _1__ mg Ephedrine No Notes: Memori a -30 (Same as: l 16:29: ePHEDrine Sulfate) Flumazenil No Notes: Memor ia -30 (Same as: l 16:29: Romazicon) Calcium No 1,000 mL, Memor ia Chloride 08-09 Rate: 125 l 0.0014 16:29: ml/hr, [place] MEQ/ML / 00 Infuse Potassium over: 8 Chloride hr, Route: 0.004 IV, Dosing MEQ/ML / Weight Sodium 134.5 kg, Chloride Total 0.103 Volume: MEQ/ML / 1,000, Sodium Start Lactate date: 0.028 16 MEQ/ML 11:29:00 Injectable CDT, Solution Duration: 30 day, Stop date: 09/09/15 11:28:00 CDT Hydralazine No Notes: Alonzo summer -30 (Same as: l 16:29: Apresoline ) Push [...] en 6-30 Infuse l 16:29: over 15 00 minutes Do not exceed 4gm/day of [...] / 6-30 (Same as: l Hydrocodone 16:24: [place] Judith nn Bitartrate 00 325/5) Do 5 MG Oral not exceed Tablet 4gm/day of acetaminop hen. Tramadol No Notes: Not Mem oria 6-30 to exceed l 16:24: 400mg/day. [place] 00 (Same As: Ultram) ondansetron 2016-0 No Route: IV, Memoria (ANES) 6- Drug form: l 16:11: INJ, ONCE, Stop date: 08/10/15 11:11:00 CDT phenylephri No Route: IV, Memoria ne (ANES) 6 Drug form: l 16:01: INJ, ONCE, Stop date: 08/10/15 11:01:00 CDT succinylcho No Route: IV, Memoria line (ANES) 08-09 Drug form: l 15:45: INJ, [...] ceFAZolin No Route: IV, Me moria (ANES) 6 Drug form: l 15:34: INJ, ONCE, Stop date: 08/10/15 10:34:00 CDT LR 1000 mL No Route: IV, M emoria INJ (ANES) 08-09 Total l 14:51: Volume: 1,000, Start date: 08/10/15 9:51:00 CDT, Stop [...] 6-30 Same as: l 0.09 13:01: Ventolin [place] MG/ACTUAT 00 HFA Metered WASTE: Dose Aerosol - Inhaler Return to Pharmacy Calcium No 1,000 mL, Memor ia Chloride 6-30 Rate: 25 l 0.0014 13:01: ml/hr, [place] MEQ/ML / 00 Infuse Potassium over: 40 Chloride hr, Route: 0.004 IV, Dosing MEQ/ML / Weight Sodium 134.091 Chloride kg, Total 0.103 Volume: MEQ/ML / 1,000, Sodium Start Lactate date: 0.028 08/10/15 MEQ/ML 8:01:00 Injectable CDT, Solution Duration: 30 day, Stop date: 09/09/15 8:00:00 CDT BD Normal No Notes: Memori a Saline 6-30 (Same as: l Flush 11:00: BD [place] 00 Posiflush) Ancef No Notes: Memoria 6-30 Same as: l 11:00: Ancef [place] 00 Deplin 15 Yes 15 mg = 1 Mem oria mg oral 6-23 cap, PO, l capsule 14:59: Daily, 0 Randy n 00 Refill(s) armodafinil Yes 250 mg = 1 Memoria 250 MG Oral 6-23 tab, PO, l Tablet 14:58: Daily, # [place] [Nuvigil] 00 30 tab, 0 Refill(s) Suvorexant Yes 10 mg = 1 Me moria 10 MG Oral 6-23 tab, PO, l Tablet 14:57: Bedtime, 0 Judith nn [Belsomra] 00 Refill(s) ezetimibe Yes 10 mg = 1 Mem oria 10 MG Oral 6-23 tab, PO, l Tablet 14:56: Daily, 0 [place] [Zetia] 00 Refill(s) Milnacipran Yes 50 mg = 1 M emoria hydrochlori 6-23 tab, PO, l de 50 MG 14:56: BID, # 60 Herm archana Oral Tablet 00 tab, 3 [Savella] Refill(s) aripiprazol Yes 20 mg = 1 M emoria e 20 MG 6-23 tab, PO, l Oral Tablet 14:56: Daily, 0 [place] [Abilify] 00 Refill(s) Tresiba 0 Yes SUB-Q, Memoria FlexTouch 6-23 Daily, 0 l 14:55: Refill(s) [place] 00 0.65 ML Yes 2 mg, Memoria [...] Randy n 00 tab, 0 Refill(s) cyclobenzap 2016-0 Yes 10 mg = 1 M emoria rine 10 mg 6-23 tab, PO, l oral tablet 14:53: TID, PRN He rm 00 for spasms, # 30 tab, 0 Refill(s) Hydroxychlo Yes 200 mg, Mem oria roquine 6-23 PO, Daily, l 14:53: 0 Refill(s) celecoxib Yes 200 mg = 1 Me moria 200 MG Oral 6-23 cap, PO, l Capsule 14:52: BID, 0 [place] [Celebrex] 00 Refill(s) Methotrexat Yes 0 Memori a e 6-23 Refill(s) l 14:52: [place] 00 Methotrexat Yes INTRATHECA Memoria e Sodium, 6-23 L, ONCE, 0 l Preservativ 14:52: Refill(s) H ermann e Free 25 00 mg/mL injectable solution Folic Acid Yes 1 mg = 1 Mem oria 1 MG Oral 6-23 tab, PO, l Tablet 14:51: Daily, 0 00 Refill(s) Celebrex Celebrex Yes [place] 1 [...] t [facility] defined [facility] ProAir HFA ProAir HFA Yes [place] [address] [facility] needed [facility] Pilocarpine Pilocarpine Yes [place] [address] [facility] [address] HCl HCl [facility] Savella Savella Yes Luc[facility] [address] [facility] Guaifenesin Guaifenesin Yes [place] [address] [facility] -Codeine -Codeine [facility] Atorvastati Atorvastati Yes [place] [address] [facility] n Calcium n Calcium [facility] Omeprazole Omeprazole Yes [place] [address] [facility] Breo Breo Yes [place] [address] [facility] Ellipta Ellipta [facility] Trazodone Trazodone Yes [place] [address] [facility] [address] HCl HCl [facility] at bedtime [facility] Toujeo Toujeo Yes Luciano not [facility] SoloStar SoloStar [facility] defined [facility] Tolterodine Tolterodine Yes [place] [address] [facility] [address] Tartrate ER Tartrate ER [facility] Hemocyte Hemocyte Yes [place] [address] [facility] Plus Plus [facility] Folic Acid Folic Acid Yes [place] [address] [facility] MetFORMIN MetFORMIN Yes [place] [address] [facility] [address] HCl ER HCl ER [place] at night [facility] Metformin Metformin Yes [place] [address] [address] HCl HCl [place] with a [facility] meal in Memoria the l morning [facility] Abilify 20 Abilify 20 Yes 1 po QHS Univers MG Oral MG Oral ity of Tablet Tablet [place] [facility] Saphris Saphris Yes [place] [address] [facility] under the [facility] tongue and [facility]oria allow to l dissolve [facility] Savella 50 Sav[place] 50 Yes 1 po QHS Univers MG Oral MG Oral ity of Tablet Tablet [place] [facility] Paxil Paxil Yes Luciano [address] [facility] in the [facility] Plavix 75 Plavix 75 Yes Unive rs MG Oral MG Oral ity of Tablet Tablet [place] [facility] Simvastatin Simvastatin Yes U nivers 40 MG Oral 40 MG Oral ity of Tablet Tablet [place] [facility] Colace Colace Yes Luciano [address] [facility] as needed [facility] SulfaSALAzi SulfaSALAzi Yes U nivers ne 500 MG ne 500 MG ity o f Oral Tablet Oral Tablet [place] [facility] Leflunomide Leflunomide Yes U nivers 20 MG Oral 20 MG Oral ity of Tablet Tablet [place] [facility] CeleBREX CeleBREX Yes Univers CAPS CAPS ity of [place] [facility] Hydroxychlo Hydroxychlo Yes U nivers roquine roquine ity of Sulfate 200 Sulfate 200 [place] MG Oral MG Oral Physici Tablet Tablet ans Folic Acid Folic Acid Yes Uni vers 1 MG Oral 1 MG Oral ity o f Tablet Tablet [place] [facility] Pilocarpine Pilocarpine Yes U nivers HCl - 7.5 HCl - 7.5 ity o f MG Oral MG Oral [place] Tablet Tablet Physici ans HydrOXYzine HydrOXYzine Yes U nivers HCl - 25 MG HCl - 25 MG i ty of Oral Tablet Oral Tablet [place] [facility] TraZODone TraZODone Yes Unive rs HCl TABS HCl TABS ity of [place] [facility] Tresiba Tresiba Yes Univers FlexTouch FlexTouch ity o f SOPN SOPN [place] [facility] Bydureon Bydureon Yes Univers PEN PEN [facility]y [facility] [place] [facility] Vital Signs Vital Name Observation Time Observation Value Comments Source Systolic blood 2021-03-26 152 mm[Hg] [facility] pressure 18:40:00 [facility] Diastolic blood 2021-03-26 58 mm[Hg] University o f pressure 18:40:00 [facility] Heart rate 2021-03-26 95 /min [facility] 18:40:00 [facility] Body temperature 2021-03-26 37.22 Teresa [facility] 18:40:00 [facility] Respiratory rate 2021-03-26 18 /min University of 18:40:00 [facility] Body weight 2021-03-26 106.595 kg University of 18:40:00 [facility] BMI 2021-03-26 32.78 kg/m2 University of 18:40:00 [facility] Oxygen saturation 2021-03-26 100 /min University of in Arterial blood 18:40:00 [place] [facility] by Pulse oximetry Branch Systolic blood 2020-12-03 127 mm[Hg] University of pressure 19:16:00 [facility] Diastolic blood 2020-12-03 84 mm[Hg] University o f pressure 19:16:00 [facility] Heart rate 2020-12-03 85 /min University of 19:16:00 [facility] Body temperature 2020-12-03 36.5 Teresa University of 19:16:00 [facility] Respiratory rate 2020-12-03 16 /min University of 19:16:00 [facility] Body height 2020-12-03 180.3 cm University of 19:16:00 [facility] Body weight 2020-12-03 113.399 kg University of 19:16:00 [facility] BMI 2020-12-03 34.87 kg/m2 University of 19:16:00 [facility] Oxygen saturation 2020-12-03 97 /min University of in Arterial blood 19:16:00 [facility] by Pulse oximetry Branch Systolic blood 2020-06-21 148 mm[Hg] University of pressure 20:01:00 [facility] Diastolic blood 2020-06-21 85 mm[Hg] University o f pressure 20:01:00 [facility] Heart rate 2020-06-21 83 /min University of 20:01:00 [facility] Body temperature 2020-06-21 36.94 Teresa [facility] of 20:01:00 [facility] Respiratory rate 2020-06-21 18 /min University of 20:01:00 [facility] Body height 2020-06-21 180.3 cm University of 20:01:00 [facility] Body weight 2020-06-21 131.271 kg University of 20:01:00 [facility] BMI 2020-06-21 40.36 kg/m2 University of 20:01:00 [facility] Systolic blood 2020-06-22 144 mm[Hg] [facility] 15:10:00 [facility] Diastolic blood 2020-06-22 65 mm[Hg] [facility] pressure 15:10:00 [facility] Heart rate 2020-06-22 88 /min [facility] 15:10:[facility] Body temperature 2020-06-22 36.22 Teresa [facility] 15:10:00 [facility] Body height 2020-06-22 180.3 cm [facility] 15:10:00 [facility] Respiratory rate 2020-05-05 16 /min [facility] 20:27:41 [facility] Oxygen saturation 2020-05-05 98 /min [facility] in Arterial blood 20:27:41 Hospital by Pulse oximetry Body weight 2020-05-04 128.187 kg [facility] 22:05:46 [facility] BMI 2020-05-04 39.41 kg/m2 [facility] 22:05:46 [facility] BP Systolic 2017-09-03 130 mm[Hg] Location: [facility] 11::00 Position: [place] [facility] BP Diastolic 2017-09-03 80 mm[Hg] Location: [facility] 11:02:00 Position: [place] [facility] Height 2017-09-03 71 [in_us] [facility] 11:02:00 [place] [facility] Weight 2017-09-03 298 [lb_av] [facility] 11:02:00 [place] [facility] Body Mass Index 2017-09-03 41.56 kg/m2 [place] o f Calculated 11:02:00 [place] [facility] Temperature 2017-09-03 97.8 [degF] [facility] 11:02:00 [place] [facility] BP Systolic 2017-08-27 108 mm[Hg] Location: [facility] 14::00 Position: [place] [facility] BP Diastolic 2017-08-27 70 mm[Hg] Location: [facility] 14:27:00 Position: [place] [facility] Height 2017-08-27 71 [in_us] [facility] 14:27:00 [place] [facility] Weight 2017-08-27 298 [lb_av] [facility] 14:27:00 [place] [facility] Body Mass Index 2017-08-27 41.56 kg/m2 University o f Calculated 14:27:00 [place] [facility] Temperature 2017-08-27 97.9 [degF] [facility] 14:27:00 [place] [facility] BP Systolic 2017-08-21 130 mm[Hg] Location: [place]; [facility] 10:23:00 Position: [place] [facility] BP Diastolic 2017-08-21 84 mm[Hg] Location: [facility]IN; [facility] 10:23:00 Position: [place] [facility] Height 2017-08-21 71 [in_us] [facility] of 10:23:00 [place] [facility] Weight 2017-08-21 298 [lb_av] University 10:23:00 [place] [facility] Body Mass Index 2017-08-21 41.56 kg/m2 University o f Calculated 10:23:00 [place] [facility] BP Systolic 2017-08-14 150 mm[Hg] Location: [facility]; [facility] 10:53:00 Position: [place] [facility] BP Diastolic 2017-08-14 72 mm[Hg] Location: [facility]; [facility] 10:53:00 Position: [place] [facility] Height 2017-08-14 71 [in_us] [facility] of 10:53:00 [place] [facility] Weight 2017-08-14 298 [lb_av] [facility] of 10:53:00 [place] [facility] Body Mass Index 2017-08-14 41.56 kg/m2 University o f Calculated 10:53:00 [place] [facility] Temperature 2017-08-14 98.8 [degF] [facility] of 10:53:00 [place] [facility] BP Systolic 2017-07-31 132 mm[Hg] Location: NAIN; [place] of 13:51:00 Position: [place] [facility] BP Diastolic 2017-07-31 68 mm[Hg] Location: NAIN; [place] of 13:51:00 Position: [place] [facility] Height 2017-07-31 71 [in_us] [facility] of 13:51:00 [place] [facility] Weight 2017-07-31 298 [lb_av] [facility] of 13:51:00 [place] [facility] Body Mass Index 2017-07-31 41.56 kg/m2 University o f Calculated 13:51:00 [place] [facility] Temperature 2017-07-31 98.2 [degF] [facility] of 13:51:00 [place] [facility] BP Systolic 2017-07-24 122 mm[Hg] Location: NAIN; [place] of 13:30:00 Position: [place] [facility] BP Diastolic 2017-07-24 72 mm[Hg] Location: NAIN; [place] of 13:30:00 Position: [place] [facility] Height 2017-07-24 71 [in_us] [facility] of 13:30:00 [place] [facility] Weight 2017-07-24 298 [lb_av] University 13:30:00 [place] Physician s Body Mass Index 2017-07-24 41.56 kg/m2 [facility] Calculated 13:30:00 [place] [facility] [facility] Temperature 2017-07-24 98.4 [degF] [facility] 13:30:00 [place] [facility] BP Systolic 2017-07-17 110 mm[Hg] [place] [facility] [facility] 14:32:00 Position: [place] Physician s Sitting BP Diastolic 2017-07-17 80 mm[Hg] Location: [facility]; [facility] 14:32:00 Position: [place] Physician s Sitting Height 2017-07-17 71 [in_us] University 14:32:00 [place] [facility] Weight 2017-07-17 298 [lb_av] [facility] 14:32:00 [place] Physician s Body Mass Index 2017-07-17 41.56 kg/m2 University o f Calculated 14:32:00 [place] Phys[facility] s BP Systolic 2017-07-03 142 mm[Hg] [place] [facility] [facility] 09:36:00 Position: [place] Physician s Sitting BP Diastolic 2017-07-03 80 mm[Hg] Location: [facility] 09:36:00 Position: [place] Physician s Sitting Height 2017-07-03 71 [in_us] [facility] 09:36:00 [place] [facility] Weight 2017-07-03 298 [lb_av] [facility] 09:36:00 [place] [facility] Body Mass Index 2017-07-03 41.56 kg/m2 [facility] Calculated 09:36:00 [place] Phys[facility] Temperature 2017-07-03 97.4 [degF] [facility] 09:36:00 [place] [facility] BP Systolic 2017-06-19 140 mm[Hg] Location: [facility]; [facility] 15:26:00 Position: [place] Physician s Sitting BP Diastolic 2017-06-19 80 mm[Hg] [place] [facility] [facility] 15:26:00 Position: [place] Physician s Sitting Height 2017-06-19 71 [in_us] [facility] of 15:26:00 [place] [facility] Weight 2017-06-19 298 [lb_av] [facility] 15:26:00 [place] [facility] Body Mass Index 2017-06-19 41.56 kg/m2 [facility] o [facility] Calculated 15:26:00 [place] [facility] Temperature 2017-06-19 97.9 [degF] [facility] of 15:26:00 [place] [facility] BP Systolic 2017-06-12 118 mm[Hg] Location: [facility] 13:28:00 Position: [place] Physician s Sitting BP Diastolic 2017-06-12 80 mm[Hg] Location: [facility] 13:28:00 Position: [place] Physician s Sitting Height 2017-06-12 71 [in_us] [facility] 13:28:00 [place] [facility] [facility] Weight 2017-06-12 298 [lb_av] [facility] 13:28:00 [place] Phys[facility] Body Mass Index 2017-06-12 41.56 kg/m2 [facility] o [facility] Calculated 13:28:00 [place] [facility] BP Systolic 2017-06-09 160 mm[Hg] Location: [facility] 09:20:00 Position: [place] Physician s Sitting BP Diastolic 2017-06-09 92 mm[Hg] Location: [facility] 09:20:00 Position: [place] Physician s Sitting Height 2017-06-09 71 [in_us] [facility] 09:20:00 [place] [facility] Weight 2017-06-09 298 [lb_av] [facility] 09:20:00 [place] [facility] Body Mass Index 2017-06-09 41.56 kg/m2 [facility] Calculated 09:20:00 [place] [facility] Temperature 2017-06-09 98.2 [degF] [facility] 09:20:00 [place] [facility] Respitory Rate [...] n 13:14:00 Temperature Oral 2015-08-03 98.5 F [facility] Mikel rmann (F) 14:50:00 Height 2015-08-03 180.34 cm [facility] 13:51:00 Procedures Procedure Date / Time Performing Clinician Source Performed NOTICE OF PRIVACY 2021-03-26 18:27:07 Doctor Shana [facility] Name Medical Branch CONSENT/REFUSAL FOR 2021-03-26 18:26:47 Doctor [facility] DIAGNOSIS AND TREATMENT [place] [facility] NOTICE OF PRIVACY 2020-12-18 16:26:34 Doctor Unarip [facility] [place] [facility] CONSENT/REFUSAL FOR 2020-12-18 16:25:51 Doctor [facility] DIAGNOSIS AND TREATMENT [place] [facility] ASSIGNMENT OF BENEFITS 2020-12-18 16:25:20 Doctor Shana [facility] Name Medical Branch REFERRAL- REQUEST/RESPONSE 2020-12-08 05:01:00 Doctor Shana , [facility] [place] [facility] EKG-12 LEAD 2020-12-03 20:44:28 Greg Peacock [facility] Medical [place] NOTICE OF PRIVACY 2020-12-03 19:10:09 Doctor Unassigned, [facility] PRACTICES [place] [facility] MRI BRAIN W WO CONTRAST 2020-05-05 18:29:[facility] 2020-05-05 17:10:00 Chloe Minor spital TTE COMPLETE, WO CONTRAST, 2020-05-05 15:22:00 [facility] AGITATED SAL[facility] (19797) POC GLUCOSE 2020-05-05 12:19:00 Chloe Minor spital HC COMPLETE BLD COUNT 2020-05-05 10:15:00 [facility] W/AUTO DIFF BASIC METABOLIC PANEL 2020-05-05 10:15:00 [facility] VITAMIN B12 LEVEL 2020-05-05 10:15:00 [facility] VITAMIN B1 LEVEL, WHOLE 2020-05-05 10:15:00 [facility] BLOOD THYROID STIMULATING 2020-05-05 10:15:00 [facility] HORMONE LIPID PANEL 2020-05-05 10:15:00 [facility] [place] spital HEMOGLOBIN A1C 2020-05-05 10:15:00 [facility] SEDIMENTATION RATE 2020-05-05 10:15:00 [facility] RAPID HIV 1 & 2 2020-05-05 10:15:00 [facility] SYPHILIS TREPONEMA SCREEN 2020-05-05 10:15:00 [facility] WITH RPR CONFIRMATION (REVERSE ALGORITHM) ESTIMATED GFR 2020-05-05 10:15:00 Rafaela [facility] sp[facility] C-REACTIVE PROTEIN 2020-05-05 10:15:00 [facility] POC GLUCOSE 2020-05-05 01:38:00 Chloe Minor spital POC GLUCOSE 2020-05-04 22:14:00 Rafaela Minor [facility] URINE CULTURE 2020-05-04 20:33:00 [facility]EN AND 2020-05-04 20:33:00 Tom Means [facility] MICROSCOPY, WITH REFLEX TO CULTURE COVID-19 QUALITATIVE 2020-05-04 20:27:00 Tom Means [facility] RT-PCR ECG 12-LEAD 2020-05-04 20:21:36 UllahChloe [facility] spital CT ANGIOGRAM NECK W WO 2020-05-04 19:46:05 Tom Means [facility] CONTRAST CT ANGIOGRAM HEAD W WO 2020-05-04 19:45:38 Tom Means [facility] CONTRAST CT STROKE BRAIN WO 2020-05-04 19:36:06 Tom Means [facility] CONTRAST HC COMPLETE BLD COUNT 2020-05-04 19:19:00 Tom Means [facility] W/AUTO DIFF PARTIAL THROMBOPLASTIN 2020-05-04 19:19:00 Tom Means [facility] TIME (PTT) PROTHROMBIN TIME WITH INR 2020-05-04 [facility]00 [facility] COMPREHENSIVE METABOLIC 2020-05-04 19:19:00 [facility] PANEL ESTIMATED GFR 2020-05-04 19:19:00 [facility] [[facility]] CULTURE, URINE, 2017-08-27 00:00:00 [facility] ROUTINE Physicians [[facility]] CULTURE, URINE, 2017-08-21 00:00:00 [facility] ROUTINE Physicians [[facility]] CULTURE, URINE, 2017-06-09 00:00:00 [facility] ROUTINE Physicians CHILO - [facility]ometrial laser [facility] Limb[place] stem cell Chrystal iqbal transplantation ORIF - Open reduction and Memori al [place] internal fixation of fracture Tendon operation Chrystal iqbal History of Ankle Surgery [facility] Physicians History of Hysteroscopy [facility] With Endometrial Ablation Physic ians Plan of Care Planned Activity Planned Date Details Comments Source Future Scheduled Test DIABETES: RETINAL EYE [facility] EXAM [code = DIABETES: RETINAL EYE EXAM] Future Scheduled Test DIABETIC FOOT EXAM [facility] [code = DIABETIC FOOT EXAM] Future Scheduled Test URINE MICROALBUMIN [facility] [code = URINE MICROALBUMIN] Future Scheduled Test COVID-19 VACCINE (1) [facility] [code = COVID-19 VACCINE (1)] Future Scheduled Test Hepatitis C screening [facility] (procedure) [code = 429368643] Future Scheduled Test Screening for malignant [facility] neoplasm of cervix (procedure) [code = 547505265] Future Scheduled Test BREAST CANCER SCREENING [facility] [code = BREAST CANCER SCREENING] Future Scheduled Test COLONOSCOPY SCREENING [facility] [code = COLONOSCOPY SCREENING] Future Scheduled Test SHINGLES VACCINES (#1) [facility] [code = SHINGLES VACCINES (#1)] Future Scheduled Test INFLUENZA VACCINE [code [facility] = INFLUENZA VACCINE] Encounters Start End Encounter Admission Attending Care Care Encounter Source Date/Time Date/Time Type Type Clinicians Facility Department ID 2021-05-08 [facility] 2021-03-29 Outpatient DERESKA, [facility] [id number] [place] 16:38:20 [facility] 2021-03-14 Outpatient DERESKA, [facility] [id number] [place] 10:48:45 [facility] 2021-03-14 Outpatient Travis, [facility] 09[facility]24:01 [facility] 2021-03-07 [facility] 14[facility]38:44 [facility] 2021-03-07 Out[facility] Travis[facility] 14[facility]34:38 [facility] 2021-03-07 Out[facility] Travis[facility] 14[facility]19:07 [facility] 2021-03-07 Out[facility] Travis[facility] 14[facility]06:31 [facility] 2021-03-07 Out[facility] Travis[facility] 14:06:01 Luciano [id number] [facility] 2021-03-07 Outpatient Travis, [facility] 14:05:29 Luciano [id number] [facility] 2021-03-07 Outpatient Travis, [facility] 13:56:00 Luciano [id number] [facility] 2021-03-07 Outpatient Travis, [facility] 13:49:17 Luciano [id number] [facility] 2021-03-07 Outpatient Travis, [facility] 12:29:42 Luciano [id number] [facility] 2021-03-07 Outpatient Travis, [facility] 12:27:48 Luciano [id number] [facility] 2021-03-07 Outpatient Travis, [facility] 12:27:16 Luciano [id number] [facility] 2021-03-07 Outpatient Travis, [facility] 12:25:19 Luciano [id number] [facility] 2021-03-07 Outpatient Travis, [facility] 12:24:57 Luciano [id number] [facility] 2021-03-07 Outpatient Travis, [facility] 12:21:52 Luciano [id number] [facility] 2021-03-07 Outpatient Travis, [facility] 12:21:15 Luciano [id number] [facility] 2021-03-07 Outpatient Travis, [facility] 12:20:49 Luciano [id number] [facility] 2021-03-07 Outpatient Travis, [facility] 12:19:53 Luciano [id number] [facility] 2021-03-07 Outpatient Travis, [facility] 11:37:00 Luciano [id number] [facility] 2021-03-07 [facility] 11:36:58 Luciano [id number] [facility] 2021-03-07 Out[facility] Travis[facility] 11:33:09 Luciano [id number] [facility] 2021-03-07 Out[facility] Travis, [facility] 11:31:11 Luciano [id number] [facility] 2021-03-07 Outpatient Travis, [facility] 11:06:28 Luciano [id number] [facility] 2020-12-12 Emergency [facility] [id number] Univers 09:13:05 [facility] 2021-05-29 2021-05-29 Outpatient Sanford HINDS [facility] [id number] Univers 10:30:00 10:30:00 BRODY [id number] [facility] 2021-04-16 2021-04-[address] Spence [facility] 1.2.840.1 14 [id number] [place] 00:00:00 00:00:00 Ct Spence [place]AR [id number] [facility] [id number] [address] [id number] AND 2 WOMENS 2021-04-03 2021-04-03 Outpatient Sanford HINDS [facility] [id number] Univers 10:00:00 10:00:00 IMANONG [id number] [facility] 2021-04-03 2021-04-03 Outpatient Sanford HINDS [facility] [id number] Univers 10:00:00 10:00:00 IMANONG [facility] 2021-04-03 2021-04-03 ambulatory [facility] [id number] [facility] 2021-03-26 2021-03-26 Emergency X [facility] ERT [id number] Univers 12:42:00 13:51:00 RASHMI ity of [facility] 2021-03-26 2021-03-26 Emergency [facility] [id number] Univers 12:42:00 13:51:00 Rashmi PERRIN [id number] i ty [facility] [id number] [facility] [phone] [place] [address] Branch 2021-03-26 2021-03-26 ambulatory [facility] [id number] [facility]00 00:00:00 [facility] 2021-03-26 2021-03-26 Orders Doctor AURELIO 1.2.840.114 [id number] Univers 00:00:00 00:00:00 Only Unassigned, BETY [id number] ity of [place] [facility] [id number] [facility] [phone] [place] [address] Branch 2021-03-14 2021-03-[address] Spence [facility] 1.2.840.1 14 [id number] [place] 00:00:00 00:00:00 Ct Spence [id number] [facility] [id number] [address] [id number] AND 2 WOMENS 2021-03-12 2021-03-[address] Spence [facility] 1.2.840.1 14 [id number] [place] 00:00:00 00:00:00 Ct Spence [place] [id number] [facility] [id number] [address] 4 [id number] AND 2 WOMENS 2021-03-09 2021-03-[address] Spence [facility] 1.2.840.1 14 [id number] [place] 00:00:00 00:00:00 Ct Spence [place] [id number] [facility] [id number] [address] 1 [id number] AND 2 WOMENS 2021-03-07 2021-03-07 Outpatient R CHAVEZ [facility] [id number] Univers 14:30:00 14:30:00 [facility] [id number] [facility] 2021-03-07 2021-03-07 [facility] [id number] Univers 14:30:00 14:30:00 [facility] 2021-03-06 2021-03-06 Telephone [facility] [id number] Univers 00:00:00 00:00:00 [facility] [id number] it y [facility] [id number] Lionel as DAMIAN?BLEA [id number] [address] MEDICAL OFFICE BUILDING 2021-03-05 2021-03-05 ambulatory [facility] [id number] [facility] 2021-03-05 2021-03-05 ambulatory [facility]ML[facility] [id number] [facility] 2021-03-01 2021-03-01 ambulatory [facility]LML[facility] [id number] [facility] 2021-02-28 2021-02-28 ambulatory [facility] [id number] [facility] 2021-02-27 2021-02-27 ambulatory [facility] [id number] [facility]00 [facility] 2021-02-26 2021-02-26 ambulatory [facility] [id number] [facility]00 [facility] 2021-01-03 2021-01-03 ambulatory [facility] [id number] [facility] 00:00:00 [facility] 2020-12-27 2020-12-27 ambulatory [facility] [id number] [facility]00 00:00:00 [facility] Outpat[facility] Clinics 2020-12-26 2020-12-26 Outpatient R RADIOLOGY [facility] [id number] Univers 11:30:00 11:30:00 [id number] ity [facility] 2020-12-18 2020-12-18 Hospital Radiology [facility] 1.2.840.114 [id number] Univers 10:28:59 23:59:00 Encounter [place] [id number] ity [facility] [id number] [facility] [id number] [facility] 804 [place] 2020-12-18 2020-12-18 Outpatient R RADIOLOGY [facility] [id number] Univers 00:00:00 23:59:00 ity of [facility] 2020-12-18 2020-12-18 Outpatient R RADIOLOGY [facility] [id number] Univers 00:00:00 00:00:00 [id number] ity [facility] 2020-12-18 2020-12-18 Orders Doctor AURELIO Patterson.2.840.114 [id number] Univers 00:00:00 00:00:00 Only Unassigned, BETY [id number] ity of [place] [facility] 4.2.7.2.686 Lionel as [phone] [facility] 009 [place] 2020-12-08 2020-12-08 Orders Doctor AURELIO 1.2.840.114 [id number] Univers 00:00:00 00:00:00 Only Unassigned, BETY [id number] ity of [place] [facility] 4.2.7.2.686 Lionel as [phone] [facility] 009 [place] 2020-12-07 2020-12-07 Outpatient [facility] [id number] [facility] 00[facility]00 [facility] 2020-12-07 2020-12-07 Outpatient [facility]ML[facility] [id number] [facility] 2020-12-06 2020-12-06 [facility] [id number] 2020-12-05 2020-12-05 [facility] [id number] [facility] 2020-12-04 2020-12-04 [facility] [id number] [facility] 2020-12-04 2020-12-04 [facility] [id number] [facility] 2020-12-03 2020-12-03 Emergency riia, [facility] [id number] [facility] 14:18:00 16:20:00 Greg Perrin [id number] ity of [place] 4.2.7.2.686 [facility] [id number] [facility] 084 Branch 2020-12-03 2020-12-03 Orders Doctor AURELIO 1.2.840.114 [id number] Univers 00:00:00 00:00:00 Only Unassigned, BETY 350.1.13.10 [id number] [facility] [id number] [facility] 009 Branch 2020-11-10 2020-11-10 Outpatient [facility] [id number] [facility] 2020-10-26 2020-10-26 [facility] [id number] [facility] 2020-10-26 2020-10-26 [facility] [id number] [facility] 2020-10-12 2020-10-12 Outpatient [facility] [id number] [facility] 00:[facility] 00:00:00 Familia Dinora hardy [facility] 2020-09-28 2020-09-28 Documentat Nida Wheeler 1.2.840.1 [id number] Methodi 00:00:00 00:00:[address] 3.430.2.7 Hospit a .3.081830 l .8 2020-08-16 2020-08-16 Refill [facility] [id number] Univers 00:00:00 00:00:00 Adriana Perrin 350.1.13.10 i ty [facility] 4.2.7.2.686 Kassidy Myersio [id number] Pr dical [address] 2020-07-19 2020-07-19 [facility] [id number] Univers 09:00:00 09:00:00 ADRIANA [id number] [facility] 2020-07-19 2020-07-19 Outpatient R ANGELIKA [facility] [id number] Univers 09:00:00 09:00:00 ADRIANA [facility] 2020-06-22 2020-06-22 Office Nida Wheeler 1.2.840.1 [id number] Methodi 09:54:22 10:40:[address] 3.430.2.7 Hospit a .3.623723 l .8 2020-06-22 2020-06-22 Travel 1.2.840.1 [id number] [id number] Methodi 00:00:00 00:00:[address] 3.430.2.7 0.2.7.3.698 Ho spita .3.801431 084.8 l .8 2020-06-21 2020-06-21 Office Adriana Banks [facility] 1.2.840.11 [id number] Univers 14:30:27 16:08:05 Visit Goldie Huber 350.1.13.10 [place] [phone] Pr dical [place]al [address] [place] [address] 2020-06-21 2020-06-21 Outpatient R MAYO [facility] [id number] Univers 15:00:00 15:00:00 GOLDIE pierce [facility] 2020-06-21 2020-06-21 Telephone [facility] 1.2.840.114 [id number] Univers 00:00:00 00:00:00 Adriana Perrin 350.1.13.10 i ty [facility] 4.2.7.2.[place] [phone] Pr dical nal [address] [place] [address] 2020-06-01 2020-06-01 Outpatient [facility] [id number] [facility] 2020-06-01 2020-06-01 [facility] [id number] [facility] 2020-05-30 2020-05-30 Travel 1.2.840.1 [id number] Methodi 00:00:00 00:00:[address] 3.430.2.7 0.2.7.3.698 [facility] .3.638942 084.8 l .8 2020-05-26 2020-05-26 Outpatient [facility] [id number] [facility] 2020-05-17 2020-05-17 [facility] [id number] [facility] 2020-05-04 2020-05-05 Emergency Kingsley Corado K. 1.2.840.1 [id number] Methodi 13:01:00 16:43:00 Chloe Minor [address]93.1.[address] 3.430.2.7 Hospit a .3.113766 l .8 2020-05-04 2020-05-04 Travel 1.2.840.1 [id number] [id number] Method 00:00:00 00:00:[address] 3.430.2.7 0.2.7.3.698 Ho spita .3.896794 084.8 l .8 2020-04-14 2020-04-14 Outpatient [facility] [id number] [facility] 2020-04-10 2020-04-10 Outpatient [facility] [id number] [facility] 2020-03-31 2020-03-31 Outpatient [facility] [id number] [facility] 2020-03-23 2020-03-23 Outpatient [facility] [id number] [facility] 2020-03-23 2020-03-23 Outpatient [facility] [id number] [facility] 2020-03-14 2020-03-14 Outpatient [facility] [id number] [facility] 2020-03-07 2020-03-07 Outpatient [facility] [id number] [facility] 2020-02-28 2020-02-28 Outpatient [facility] [id number] [facility] 2020-02-24 2020-02-24 Outpatient [facility] [id number] [facility] 2020-02-23 2020-02-23 Outpatient [facility] [id number] [facility] 2020-02-23 2020-02-23 Outpatient [facility] [id number] [facility] 2019-11-24 2019-11-25 Outpt Diag nullFlavo [facility] [id number] [facility] 14[facility]28:00 04:59:00 Services r Outpatient 03 l Imaging Am[facility] Cobalt 2019-11-11 2019-11-11 Outpatient [facility] [id number] [facility] 2019-11-02 2019-11-02 Outpatient [facility] [id number] [facility] 2019-11-02 2019-11-02 Outpatient [facility] [id number] [facility] 2019-10-27 2019-10-27 [facility] [id number] [facility] 14:10:00 14:10:00 [place] [facility] Family Medicine l Medicine Outpati ent Clinics 2019-10-27 2019-10-27 [facility] [id number] 10:59:00 10:59:00 [place] Drive [facility] Family Medicine l Medicine Outpati ent Clinics 2019-10-12 2019-10-12 [facility] [id number] [address] 08:20:00 08:20:00 [place] Drive [facility] Family Medicine l Medicine Outpati ent Clinics 2019-09-22 2019-09-22 [facility] [id number] 08:30:00 08:30:00 [place] - [employer] [facility] Family Medicine l Medicine Outpati ent Clinics 2019-08-10 2019-08-10 [facility] [id number] 13:30:00 13:30:00 [place] [address] [facility] - Drive [facility] Medicine l Medicine Outpati ent Clinics 2019-04-02 2019-04-02 [facility] [id number] 15:07:00 15:07:00 [place] [address] [facility] - Drive [facility] Medicine l Medicine Outpati ent Clinics 2019-03-16 2019-03-16 [facility] [id number] 17:04:00 17:04:00 [place] [address] [place] [facility] - Drive [facility] Medicine l Medicine Outpati ent Clinics 2018-12-03 2018-12-03 [facility] [id number] 16:41:00 16:41:00 [place] [address] [place] [facility] - Drive [facility] Medicine l Medicine Outpati ent Clinics 2018-11-18 2018-11-18 [facility] [id number] 08:00:00 08:00:00 [place] [address] [place] [facility] - Drive [facility] Medicine l Medicine Outpati ent Clinics 2018-07-22 2018-07-22 [facility] [id number] 08:30:00 08:30:00 [place] [employer] [place] s - Drive [facility] Medicine l Medicine Outpati ent Clinics 2018-06-10 2018-06-10 [facility] [id number] 09:53:00 09:53:00 [place] [employer] [place] [facility] - Drive [facility] Medicine l Medicine Outpati ent Clinics 2018-03-23 2018-03-23 [facility] [id number] 14:00:00 14:00:00 [place] [address] [place] [facility] - Drive [facility] Medicine l Medicine Outpati ent Clinics 2018-03-19 2018-03-19 [facility] [id number] 10:45:00 10:45:00 [place] [address] [place] [facility] - Drive [facility] Medicine l Medicine Outpati ent Clinics 2017-11-10 2017-11-10 [facility] [id number] 10:15:00 10:15:00 [place] [address] [place] [facility] - Drive [facility] Medicine l Medicine Outpati ent Clinics 2017-11-06 2017-11-06 [facility] [id number] 08:00:00 08:00:00 [place] - Drive [facility] 2017-09-23 2017-09-23 [facility] [id number] 16:07:00 16:07:00 [place] - Drive [facility] [place] [place] ent [facility] 2017-09-03 2017-09-03 Appointmen RHIANNON HOOPER [facility] 4 [id number] [facility] 11:00:00 11:00:00 t; KARISSA CLEANING gy Center it y [place] [employer] Physic i ans 2017-08-27 2017-08-27 Appointmen RHIANNON HOOPER [facility] 4 [id number] [facility] 14:10:00 14:10:00 t; KARISSA CLEANING gy Center it y [place] [employer] Physic i ans 2017-08-21 2017-08-21 Appointmen RHIANNON HOOPER [facility] 4 [id number] Univers 10:10:00 10:10:00 t; KARISSA CLEANING gy Center it y of [place] [employer]SA [employer] Physic i ans 2017-08-14 2017-08-14 Appointmen RHIANNON HOOPER [facility] 4 [id number] Univers 11:00:00 11:00:00 t; KARISSA CLEANING gy Center it [place] [employer]SA [employer] Physic i ans 2017-07-31 2017-07-31 Appointmen RHIANNON HOOPER [facility] 4 [id number] Univers 14:10:00 14:10:00 t; KARISSA CLENAING gy Center it [place] [employer]SA [employer] Physic i ans 2017-07-24 2017-07-24 Appointmen RHIANNON HOOPER [facility] 4 [id number] Univers 13:20:00 13:20:00 t; KARISSA CLEANING gy Center it y [place] [employer]SA [employer] Physic i ans 2017-07-17 2017-07-17 Appointmen RHIANNON HOOPER [facility] 4 [id number] Univers 14:10:00 14:10:00 t; KARISSA CLEANING gy Center [facility] [place] [employer]ISSA [employer] Physic i ans 2017-07-03 2017-07-03 Appointguerita URODIANERHIANNON [facility] [id number] Univers 09:00:00 09:00:00 t; DERESKA Center ity of [address] DERESKA Physici ans 2017-06-26 2017-06-26 [facility] [place]FORDHUNGJARRETTRHIANNON [facility] 4 [id number] Univers 09:00:00 09:00:00 t; KARISSA CLEANING gy [facility] [place] KARISSA CLE[employer] Physic i ans 2017-06-25 2017-06-25 [facility] [id number] 09:30:00 09:30:00 [place] [employer] [facility] Clinics 2017-06-19 2017-06-19 [facility] RHIANNON HOOPER [facility] 4 [id number] Univers 15:20:00 15:20:00 t; KARISSA CLEANING gy Center it y of [place] [facility] [place] [employer]ARISSA CLE[employer] Physic i ans 2017-06-12 2017-06-12 [facility] RHIANNON HOOPER [employer] 4 [id number] Univers 13:20:00 13:20:00 t; KARISSA CLEANING gy Center it y of [place] [facility] [place] [employer]ARISSA CLE[employer] Physic i ans 2017-06-09 2017-06-09 [facility] RUFUS [facility] UTP [id number] Univers 09:20:00 09:20:00 t; KARISSA CLEANING [place] KARISSA CLEANING Physic i ans 2016-12-19 2016-12-19 AppointRHIANNON Su UTP [id number] Univers 10:10:00 10:10:00 t; KARISSA CLEANING ity of RUFUS [place] KARISSA CLEANING Physic i ans 2016-11-28 2016-11-28 AppointRHIANNON Su UTP [id number] Univers 10:10:00 10:10:00 t; KARISSA CLEANING ity [place], [place] BLACK, HEALTH LEAD Physic i ans 2016-09-12 2016-09-12 [facility] BRADFORDROCHELLE [facility] UTP [id number] Univers 13:20:00 13:20:00 t; BLACK, HEALTH LEAD ity of [place], [place] BLACK, HEALTH LEAD Physic i ans 2016-04-01 2016-04-01 Emergency [facility] [id number] Memoria 17:43:00 23:41:00 r [place] 02 l [place] nn 2015-11-30 2015-11-30 [facility] BRADFORDHUNGJARRETT [facility] UTP [id number] Univers 09:00:00 09:00:00 t; BLACK, HEALTH LEAD ity [place], [place] BLACK, HEALTH LEAD Physic i ans 2015-10-20 2015-10-20 [facility] RHIANNON PUCKETT [id number] Univers 10:10:00 10:10:00 t; Preeti CARTER [place] NINA, M.D. Physi ci ans 2015-09-21 2015-09-21 [facility] RHIANNON PUCKETT UTP [id number] Univers 13:00:00 13:00:00 t; Preeti CARTER [place] NINA, M.D. Physi ci ans 2015-08-10 2015-08-10 OBS Day [facility] [id number] Memoria 12:24:00 19:42:00 Surgery r [place] 00 l [place] Judith nn 2015-08-10 2015-08-10 [facility] RHIANNON PUCKETT UTP [id number] Univers 09:30:00 09:30:00 t; Preeti CARTER [place] NINA, M.D. Physi ci ans 2015-08-02 2015-08-02 [facility] RHIANNON PUCKETT UTP [id number] Univers 08:30:00 08:30:00 t; Preeti CARTER [place] NINA, M.D. Physi ci ans 2015-07-05 2015-07-05 [facility] RHIANNON PUCKETT UTP [id number] Univers 08:30:00 08:30:00 t; Preeti CARTER [place] NINA, M.D. Physi ci ans 2015-04-28 2015-04-29 Outpt Diag nullFlavo [facility] [id number] Memoria 15:30:00 04:59:00 Services r Outpatient 02 l Imaging - Randy iqbal Gosia 2011-09-02 2011-09-02 OD FYA [facility] [id number] Memoria 08:48:00 08:48:00 00 l [place] Results Test Description Test Time Test Comments Results Result Comments Source ECG 12 lead 2020-05-07 00:09:04 Test Item Value Reference Range Interpretation Comme nts Ventricular rate (test code = 253) Atrial rate (test code = 255) IA interval (test code = 266) QRSD interval [...] abnormality no longer evident in Lateral leads- [facility] Complete, (w Contrast, Strain and 3D if needed)2020-05-05 21:56:13 Test Item Value Reference Range Interpretation Comments AoV Area, Vmax (test 3.00 cm2 code = 1442358800) AoV Area, VTI (test 2.90 cm2 code = 8293050091) AoV Mean PG (test code mmHg = 5780489722) AoV Peak PG (test code mmHg = 5384567098) AoV Vmax (test code = 1.31 m/s 5723818838) AoV VTI (test code = 0.26 m 7871601109) IVS,d (test code = 1.03 cm 3946167518) IVS/LVPW,2D (test code = 7858618358) Left Atrium Dimension 4.40 cm Anterior (test code = 1436489680) LV,d (test code = 5.15 cm 0607218045) LV EF,2D (test code = 55.90 % 5639165433) LV,s (test code = 3.92 cm 5776952429) LVOT area (test code = 3.14 cm2 9481465690) LVOT Diam,S (test code 2.00 cm = 7293387174) LVOT Vmax (test code = 1.25 m/s 5913455232) LVOT VTI (test code = 0.24 m 5313721452) LVPWD,d (test code = 0.86 cm 4795087606) PV Pk Grad (test code = mmHg 2716439060) PV VMAX (test code = 0.90 m/s 3498540514) RVOT Vmax (test code = 0.78 m/s 6584173624) TR Vpeak (test code = 2.34 mm/s 0817945176) MV E A ratio (test code = 6269678597) TR pk grad (test code = mmHg 9781872902) MR Vmax (test code = 4.27 m/s 2171928547) MR peak grad (test code mmHg = 7184194080) E wave decelartion time msec (test code = 6933137607) MV Peak A Sam (test 0.87 m/s code = 2837197380) MV valve area p 1/2 3.17 cm2 method (test code = 9818099701) MV Peak E Sam (test 0.83 m/s code = 1413319892) MV stenosis pressure 69.31 ms 1/2 time (test code = 7085527292) LVOT stroke volume 0.75 cm3 (test code = 2067892892) AV LVOT peak gradient mmHg (test code = 7039847173) Ao Root,d,2D (test code 3.00 cm = 5783584861) LV SYS VOL (test code = 66.72 ml 3645686165) LV LICONA VOL (test code 126.64 ml = 9393312122) LV SV Teich 2D (test 59.92 ml code = 2881173575) LV Vol s Teich PSAX 66.72 ml (test code = 8282426944) RVOT pk grad (test code mmHg = 3809556939) AoV Vmn (test code = 7153455897) LV FS Teich 2D (test code = 9563913675) MV AE ratio (test code = 0589938584) LV FS Cube 2D (test code = 8574013767) LVOT Vmn (test code = 3442706217) Aov area Vmn (test code 2.80 cm2 = 8313987241) LVOT mean grad (test mmHg code = 2946013672) MAX Pred HR (test code = 4485408061) 85 of MPHR (test code = 4075596633) Ao d LA s ratio (test code = 4414404041) Calc MPHR (test code = bpm 3921696364) LV SV Cube 2D (test 76.35 ml code = 4281632470) LV vol d cube 2D (test 136.59 ml code = 6278857645) LV vol s cube 2D (test 60.24 ml code = 7728770134) MV Decel slope (test 3.45 m/s2 code = 8643585701) Pred Exer Dur R1 (test code = 7472113229) Pred METS R1 (test code = 4201146144) Velocity Ratio (V1/V2) 0.95 m/s (test code = 4689) EF (test code = 47.32 % 5772627478) E/A ratio (test code = 2384651454) LVOT VTI (CM) (test 24.00 cm code = 4233601482) MARIOLA (test code = MARIOLA) Normal left ventricular size and function with an EF~ 55% to 60%.Normal right ventricular size and function.Structurally normal cardiac valves.Mild mitral regurgitation. Left atrial enlargement. Normal pericardium with no effusion.Grade 1 diastolic dysfunction. [facility] Brain W Wo [id number] 18:34:06EXAM: MRI BRAIN W WO CONTRAST CLINICAL [...] is no enhancing lesion in the brain. [id number] Interface, Radiology Results Incoming - 05/05/2020 1:37 [...] There is no enhancing lesion in the brain.BOP-[id number] HospitalUrine omqdzky6930-88-47 20:46:09 Test Item Value Reference Range Interpretation Comments Urine culture (test SEE COMMENT Bacteriu summer screen code = 6963980) negative. [facility] Fhoyfsfs2800-80-39 19:49:34EXAMINATION: CT ANGIOGRAM HEAD W WO CONTRAST [...] occlusion or aneurysm.[id number] Neck W Wo Kxpwnflf6678-16-40 19:48:26EXAMINATION: CT ANGIOGRAM NECK W WO CONTRAST [...] criteriaVertebral artery patency.[id number]_PS01[facility] HospitalCT Stroke Brain Wo Iqccsxmc2592-14-34 19:42:38EXAMINATION: CT STROKE BRAIN WO CONTRAST CLINICAL [...] at 1441hours on 05/04/2020 who verbalized understanding. [facility]-[id number] Interface, Radiology Results Incoming - 05/04/2020 2:45 [...] at 1441 hours on 05/04/2020 who verbalized understanding.[id number]] CULTURE, URINE, [id number] 14:25:01 Test Item Value Reference Range Interpretation Comments ORGANISM (test Escherichia coliEnterococcus code = 699-9) Species FINAL REPORT 50,000 - 100,000 CFU/mL (test code = Escherichia coli 10,000 - FINAL REPORT) 50,000 CFU/mL EnterococcusSpecies 10,000 - 50,000 CFU/mL Skin Nina [facility][H] [id number] 14:25:01 Test Item Value Reference Range Interpretation Comments ORGANISM (test code = Enterococcus 699-9) Species Ampicillin (test code - S = Ampicillin) Levofloxacin (test - S code = Levofloxacin) Nitrofurantoin (test - S code = Nitrofurantoin) Tetracycline (test - S code = Tetracycline) Vancomycin (test code SEE NOTES S S= Latoya ceptible, = Vancomycin) R= Resistant, I= Intermediate, N/A= Not Applicable [facility][H] [id number] 14:25:01 Test Item Value Reference Range Interpretation [...] Tetracycline (test code = - S Tetracycline) [facility][O] Urine Dipstick (In Office)2017-08-27 15:29:00 Test Item Value Reference Range Interpretation Comments LEUKOCYTES (test code = LEUKOCYTES) 2+ A NITRITE; Normal (test code = 86096-2) neg N UROBILINOGEN; Normal (test code = 0.2 N 53122-2) PROTEIN; Normal (test code = 01013-9) neg N pH (test code = pH) 6.5 N URINE BLOOD; Abnormal (test code = trace A 39043-9) SPECIFIC GRAVITY; Normal (test code = 1.020 N 2965-2) KETONES; Normal (test code = 64247-1) neg N BILIRUBIN; Normal (test code = 90568-1) neg N GLUCOSE; Normal (test code = 1547-9) neg N [facility][H] CULTURE, URINE, [id number] 15:37:01 Test Item Value Reference Range Interpretation Comments ORGANISM (test code = Escherichia coli 699-9) FINAL REPORT (test 50,000 - 100,000 CFU/mL code = FINAL REPORT) Escherichia coli . 50,000 - 100,000 CFU/mL Skin Nina [facility][H] [id number] 15:37:01 Test Item Value Reference Range Interpretation [...] Resi stant, I= Intermediate, N/A= Not Applicable [facility][O] Urine Dipstick (In Office)2017-08-21 12:24:00 Test Item Value Reference Range Interpretation Comments LEUKOCYTES (test code = LEUKOCYTES) 2+ A NITRITE; Normal (test code = 53293-6) NEG N UROBILINOGEN; Normal (test code = 0.2 N 81153-8) PROTEIN; Abnormal (test code = 73338-7) 30 MG A pH (test code = pH) 5.5 N URINE BLOOD; Abnormal (test code = 2+ A 48187-5) SPECIFIC GRAVITY; Normal (test code = 1.030 N 2965-2) KETONES; Normal (test code = 40071-8) NEG N BILIRUBIN; Normal (test code = 05449-2) NEG N GLUCOSE; Normal (test code = 1547-9) NEG N [facility][O] Urine Dipstick (In Office)2017-06-09 10:06:00 Test Item Value Reference Range Interpretation Comments LEUKOCYTES (test code = LEUKOCYTES) 2+ A NITRITE; Normal (test code = 46734-4) NEG N UROBILINOGEN; Normal (test code = 0.2 N 01451-2) PROTEIN; Normal (test code = 84650-5) NEG N pH (test code = pH) 7.0 N URINE BLOOD; Abnormal (test code = 2+ A 81314-3) SPECIFIC GRAVITY; Normal (test code = 1.010 N 2965-2) KETONES; Normal (test code = 55141-6) NEG N BILIRUBIN; Normal (test code = NEG N 12014-5) GLUCOSE; Abnormal (test code = 1547-9) 250 MG A [facility]] BV/ VAGINITIS PANEL DNA PROBE AFFIRM 2017-06-09 09:20:01 Test Item Value Reference Range Interpretation Comments Trichomonas vaginalis DNA (test code Negative Negative = 31178-6) Gardnerella vaginalis DNA; Abnormal Positive Negative A (test code = 6410-5) Grace sp. DNA; Abnormal (test code Positive Negative A = 08292-0) [facility]] CULTURE, URINE, [id number] 09:20:01 Test Item Value Reference Range Interpretation Comments ORGANISM (test code = Escherichia coli 699-9) FINAL REPORT (test >100,000 CFU/mL code = FINAL REPORT) Escherichia coli 10,000 - 50,000 CFU/mL Skin Nina [facility][H] [id number] 09:20:01 Test Item Value Reference Range Interpretation Comments ORGANISM (test code Escherichia coli = 699-9) Ciprofloxacin (test .75 S code = Ciprofloxacin) Levofloxacin (test 1.5 S code = Levofloxacin) Trimethoprim/Sulfame 32 R thoxazole (test code = Trimethoprim/Sulfame thoxazole) Ceftriaxone (test .094 S S= Suscept ible, code = Ceftriaxone) R= Resis tant, I= Intermediate, N/A= Not Applicable [facility]2017-02-20 20:20:00 Test Item Value Reference Range Interpretation Comments Eos BF (test code = Eos BF) 0 [facility]2017-02-20 20:20:00 Test Item Value Reference Range Interpretation Comments Macrophage BF (test code = Macrophage 0 BF) [facility]2017-02-20 20:20:00 Test Item Value Reference Range Interpretation Comments Color BF (test code = Yellow (04/01/16 2:20 Color BF) PM) [facility]2017-02-20 20:20:00 Test Item Value Reference Range Interpretation Comments CellCnt BF Type (test Other (04/01/16 2:20 code = CellCnt BF Type) PM) [facility]2017-02-20 20:20:00 Test Item Value Reference Range Interpretation Comments Clarity BF (test code = Slight Cloudy (04/01/16 Clarity BF) 2:20 PM) [facility]2017-02-20 20:20:00 Test Item Value Reference Range Interpretation Comments RBC BF (test code = RBC BF) 5375 [facility]2017-02-20 20:20:00 Test Item Value Reference Range Interpretation Comments WBC BF (test code = WBC BF) 980 [facility]2017-02-20 20:20:00 Test Item Value Reference Range Interpretation Comments Lymph BF (test code = Lymph BF) 44 [facility]2017-02-20 20:20:00 Test Item Value Reference Range Interpretation Comments Segs BF (test code = Segs BF) 56 [facility] HospitalCfdcyezVGNQSTKEVP4275-68-41 19:10:00 Test Item Value Reference Range Interpretation Comments Platelet (test code = Platelet) 226 133-450 [facility] HospitalCituytkKFWCWJRUCO7762-59-44 19:10:00 Test Item Value Reference Range Interpretation Comments MCH (test code = MCH) 28.5 pg 27.0-31.0 [facility] HospitalYpbdtezRTUQIBIRAP1196-73-27 19:10:00 Test Item Value Reference Range Interpretation Comments RDW (test code = RDW) 14.8 11.5-14.5 [facility] HospitalOpwjuwdDIAILPFXCA1432-30-36 19:10:00 Test Item Value Reference Range Interpretation Comments MCHC (test code = MCHC) 33.2 32.0-36.0 [facility] HospitalKrbhinbBIZKVCHGYE0124-85-74 19:10:00 Test Item Value Reference Range Interpretation Comments Hct (test code = Hct) 30.8 36.0-48.0 [facility] HospitalYndlgiyRDGOCSAVQB0476-60-04 19:10:00 Test Item Value Reference Range Interpretation Comments RBC (test code = RBC) 3.59 4.20-5.40 [facility] HospitalGthqqbyANHHPPMQUC8530-55-02 19:10:00 Test Item Value Reference Range Interpretation Comments Hgb (test code = Hgb) 10.2 12.0-16.0 [facility] HospitalKnndkkqMEMPWCPQRP4944-37-01 19:10:00 Test Item Value Reference Range Interpretation Comments MCV (test code = MCV) 85.9 80.0-98.0 [facility] HospitalOdnwcawRTBPCKINNI0863-15-68 19:10:00 Test Item Value Reference Range Interpretation Comments Eosinophils # (test code 0.1 See_Comment [A utomated message] The = Eosinophils #) system whic h generated this result tra nsmitted reference range : <=0.5. The reference r lv was not used to int erpret this result as normal/abnormal . [facility] HospitalKiacgzkOJAINDECLV9327-96-90 19:10:00 Test Item Value Reference Range Interpretation Comments Monocytes # (test code 0.4 See_Comment [Aut omated message] The = Monocytes #) system which generated this result tra nsmitted reference range : <=0.8. The reference r lv was not used to int erpret this result as normal/abnormal . [facility] HospitalOsnulasMZHEMRHQFO2831-07-58 19:10:00 Test Item Value Reference Range Interpretation Comments Segs-Bands # (test code = Segs-Bands #) 4.0 1.5-8.1 [facility] HospitalTvnsbwvILEBCWNGIS6712-15-20 19:10:00 Test Item Value Reference Range Interpretation Comments Lymphocytes # (test code = Lymphocytes 1.5 1.0-5.5 #) [facility] HospitalWmcipreEFQVSEFTVN1531-43-96 19:10:00 Test Item Value Reference Range Interpretation Comments Basophils # (test code 0.0 See_Comment [Aut omated message] The = Basophils #) system which generated this result tra nsmitted reference range : <=0.2. The reference r lv was not used to int erpret this result as normal/abnormal . [facility] HospitalYmxoxsaYPRWABRUDJ1647-01-55 19:10:00 Test Item Value Reference Range Interpretation Comments Lymphocytes (test code = Lymphocytes) 25.0 20.0-40.0 [facility] HospitalSrdlwucRKDGMZDKAW2133-77-13 19:10:00 Test Item Value Reference Range Interpretation Comments Monocytes (test code = Monocytes) 6.9 2.0-12.0 [facility] HospitalFtmeybqSTAEHOSCHT6277-11-80 19:10:00 Test Item Value Reference Range Interpretation Comments Segs (test code = Segs) 65.5 45.0-75.0 [facility] HospitalVfampptUUQUIILFDD0153-15-23 19:10:00 Test Item Value Reference Range Interpretation Comments Basophils (test code = 0.6 See_Comment [Aut omated message] The Basophils) system which ge nerated this result tra nsmitted reference range : <=1.0. The reference r lv was not used to int erpret this result as normal/abnormal . [facility] HospitalIcyvloeYMJSFIGZVI3658-19-90 19:10:00 Test Item Value Reference Range Interpretation Comments Eosinophils (test code = 2.0 See_Comment [A utomated message] The Eosinophils) system which ge nerated this result tra nsmitted reference range : <=4.0. The reference r lv was not used to int erpret this result as normal/abnormal . [facility] HospitalBbbkrtsDJCPZTTZRM4075-51-48 19:10:00 Test Item Value Reference Range Interpretation Comments WBC (test code = WBC) 6.1 3.7-10.4 [facility] HospitalBurdcuqPGKRVSJHDO5159-52-45 19:10:00 Test Item Value Reference Range Interpretation Comments MPV (test code = MPV) 7.9 7.4-10.4 [facility] HospitalYclioyxNFDFMGLYCS0469-98-75 19:07:00 Test Item Value Reference Range Interpretation Comments Sed Rate (test code = 84 See_Comment [Auto mated message] The Sed Rate) system which ge nerated this result transmit neli reference range : <=20. The reference range was not used to interpr et this result as felipe l/abnormal. [facility]2017-02-20 18:33:00 Test Item Value Reference Range Interpretation Comments Lactic Acid Lvl (test code = Lactic 1.3 0.5-2.2 Acid Lvl) [facility]2017-02-20 18:33:00 Test Item Value Reference Range Interpretation Comments eGFR (test code = eGFR) 91 [facility]2017-02-20 18:33:00 Test Item Value Reference Range Interpretation Comments B/C Ratio (test code = B/C Ratio) 19 6-25 [facility] [place]2017-02-20 18:33:00 Test Item Value Reference Range Interpretation Comments A/G Ratio (test code = A/G Ratio) 0.6 0.7-1.6 [facility] [place]2017-02-20 18:33:00 Test Item Value Reference Range Interpretation Comments Globulin (test code = Globulin) 4.7 2.7-4.2 [facility] [place]2017-02-20 18:33:00 Test Item Value Reference Range Interpretation Comments AGAP (test code = AGAP) 12.0 10.0-20.0 [facility] [place]2017-02-20 18:33:00 Test Item Value Reference Range Interpretation Comments Bili Total (test code = Bili Total) 0.2 0.2-1.3 [facility] [place]2017-02-20 18:33:00 Test Item Value Reference Range Interpretation Comments Alk Phos (test code = Alk Phos) 116 39-136 [facility] [place]2017-02-20 18:33:00 Test Item Value Reference Range Interpretation Comments CO2 (test code = CO2) 30 24-32 [facility] [place]2017-02-20 18:33:00 Test Item Value Reference Range Interpretation Comments Chloride Lvl (test code = Chloride Lvl) 99 95-109 [facility] [place]2017-02-20 18:33:00 Test Item Value Reference Range Interpretation Comments BUN (test code = BUN) 14 7-22 [facility] [place]2017-02-20 18:33:00 Test Item Value Reference Range Interpretation Comments Glucose Lvl (test code = Glucose Lvl) 128 70-99 [facility] [place]2017-02-20 18:33:00 Test Item Value Reference Range Interpretation Comments Creatinine Lvl (test code = Creatinine 0.74 0.50-1.40 Lvl) [facility] [place]2017-02-20 18:33:00 Test Item Value Reference Range Interpretation Comments Potassium Lvl (test code = Potassium 5.0 3.5-5.1 Lvl) [facility] [place]2017-02-20 18:33:00 Test Item Value Reference Range Interpretation Comments Sodium Lvl (test code = Sodium Lvl) 136 135-145 [facility] [place]2017-02-20 18:33:00 Test Item Value Reference Range Interpretation Comments Total Protein (test code = Total 7.7 6.4-8.4 Protein) [facility] [place]2017-02-20 18:33:00 Test Item Value Reference Range Interpretation Comments Calcium Lvl (test code = Calcium Lvl) 8.7 8.5-10.5 [facility] [place]2017-02-20 18:33:00 Test Item Value Reference Range Interpretation Comments ALT (test code = ALT) 21 See_Comment [Auto mated message] The system which ge nerated this result transmit neli reference range : <=65. The reference range was not used to interpr et this result as felipe l/abnormal. [facility] [place]2017-02-20 18:33:00 Test Item Value Reference Range Interpretation Comments Albumin Lvl (test code = Albumin Lvl) 3.0 3.5-5.0 [facility] [place]2017-02-20 18:33:00 Test Item Value Reference Range Interpretation Comments AST (test code = AST) 27 See_Comment [Auto mated message] The system which ge nerated this result transmit neli reference range : <=37. The reference range was not used to interpr et this result as felipe l/abnormal. [id number] 18:33:00 Test Item Value Reference Range Interpretation Comments C-REACTIVE PROTEIN (test code = 44.4 C-REACTIVE PROTEIN) [facility] [place]2016-06-23 14:38:00 Test Item Value Reference Range Interpretation Comments eGFR (test code = eGFR) 79 [facility] [place]2016-06-23 14:38:00 Test Item Value Reference Range Interpretation Comments Sodium Lvl (test code = Sodium Lvl) 144 135-145 [facility] [place]2016-06-23 14:38:00 Test Item Value Reference Range Interpretation Comments Chloride Lvl (test code = Chloride Lvl) 104 95-109 [facility] [place]2016-06-23 14:38:00 Test Item Value Reference Range Interpretation Comments Potassium Lvl (test code = Potassium 4.6 3.5-5.1 Lvl) [facility] [place]2016-06-23 14:38:00 Test Item Value Reference Range Interpretation Comments Calcium Lvl (test code = Calcium Lvl) 9.4 8.5-10.5 [facility] [place]2016-06-23 14:38:00 Test Item Value Reference Range Interpretation Comments CO2 (test code = CO2) 31 24-32 [facility] [place]2016-06-23 14:38:00 Test Item Value Reference Range Interpretation Comments Glucose Lvl (test code = Glucose Lvl) 126 70-99 [facility] [place]2016-06-23 14:38:00 Test Item Value Reference Range Interpretation Comments Creatinine Lvl (test code = Creatinine 0.84 0.50-1.40 Lvl) [facility] [place]2016-06-23 14:38:00 Test Item Value Reference Range Interpretation Comments BUN (test code = BUN) 17 7-22 [facility] [place]2016-06-23 14:38:00 Test Item Value Reference Range Interpretation Comments AGAP (test code = AGAP) 13.6 10.0-20.0 [id number] 14:38:00 Test Item Value Reference Range Interpretation Comments MCH (test code = MCH) 28.8 pg 27.0-31.0 [facility] HospitalKeoctiwYENHXBAZJY6453-67-07 14:38:00 Test Item Value Reference Range Interpretation Comments Hgb (test code = Hgb) 12.1 12.0-16.0 [facility] HospitalJfedhurOYJOSNTHOZ8867-16-22 14:38:00 Test Item Value Reference Range Interpretation Comments RBC (test code = RBC) 4.20 4.20-5.40 [facility] HospitalDppimzpPEZCOAISZG7110-17-72 14:38:00 Test Item Value Reference Range Interpretation Comments MCV (test code = MCV) 89.2 80.0-98.0 [facility] HospitalDuzaamyXZJEYJPDWY8216-51-83 14:38:00 Test Item Value Reference Range Interpretation Comments Hct (test code = Hct) 37.5 36.0-48.0 [facility] HospitalIywnpmvUVXVEPRSMA7824-39-68 14:38:00 Test Item Value Reference Range Interpretation Comments WBC (test code = WBC) 7.4 3.7-10.4 [facility] HospitalQepkvngHUERXQWFGU6106-57-31 14:38:00 Test Item Value Reference Range Interpretation Comments MCHC (test code = MCHC) 32.3 32.0-36.0 [facility] HospitalPomjlzcXCXSRQLCBG0528-93-57 14:38:00 Test Item Value Reference Range Interpretation Comments RDW (test code = RDW) 14.3 11.5-14.5 [facility] HospitalKoumzsnKODHTBFEES4463-94-36 14:38:00 Test Item Value Reference Range Interpretation Comments MPV (test code = MPV) 9.3 7.4-10.4 [facility] HospitalPwvdyysSBWCLRPCLQ9831-41-49 14:38:00 Test Item Value Reference Range Interpretation Comments Platelet (test code = Platelet) 193 133-450 [facility] HospitalZvlpocpDPHYIDQRLF1152-84-58 14:38:00 Test Item Value Reference Range Interpretation Comments Basophils # (test code 0.0 See_Comment [Aut omated message] The = Basophils #) system which generated this result tra nsmitted reference range : <=0.2. The reference r lv was not used to int erpret this result as normal/abnormal . [facility] HospitalQvpgzkjGZVUPQINXB7910-08-00 14:38:00 Test Item Value Reference Range Interpretation Comments Segs (test code = Segs) 61.4 45.0-75.0 [facility] HospitalGqyjpkkXIHFIQWUTL1426-75-87 14:38:00 Test Item Value Reference Range Interpretation Comments Lymphocytes (test code = Lymphocytes) 30.9 20.0-40.0 [facility] HospitalMqqaumdQRTKRKOYOH3462-14-14 14:38:00 Test Item Value Reference Range Interpretation Comments Lymphocytes # (test code = Lymphocytes 2.3 1.0-5.5 #) [facility] HospitalIkjuxisQYVXUYRQER5370-94-10 14:38:00 Test Item Value Reference Range Interpretation Comments Monocytes # (test code 0.4 See_Comment [Aut omated message] The = Monocytes #) system which generated this result tra nsmitted reference range : <=0.8. The reference r lv was not used to int erpret this result as normal/abnormal . [facility] HospitalYmifefiSSYQEDUVWV5662-59-45 14:38:00 Test Item Value Reference Range Interpretation Comments Segs-Bands # (test code = Segs-Bands #) 4.5 1.5-8.1 [facility] HospitalTsdlhecSQLUOAEPRV2230-07-97 14:38:00 Test Item Value Reference Range Interpretation Comments Basophils (test code = 0.5 See_Comment [Aut omated message] The Basophils) system which ge nerated this result tra nsmitted reference range : <=1.0. The reference r lv was not used to int erpret this result as normal/abnormal . [facility] HospitalEundevdTXPFJOYEVK1208-54-28 14:38:00 Test Item Value Reference Range Interpretation Comments Monocytes (test code = Monocytes) 5.8 2.0-12.0 [facility] HospitalP[id number] 14:38:00 Test Item Value Reference Range Interpretation Comments Eosinophils (test code = 1.4 See_Comment [A utomated message] The Eosinophils) system which ge nerated this result tra nsmitted reference range : <=4.0. The reference r lv was not used to int erpret this result as normal/abnormal . [facility] HospitalNifffdrDBZAIJZUMB1220-66-26 14:38:00 Test Item Value Reference Range Interpretation Comments Eosinophils # (test code 0.1 See_Comment [A utomated message] The = Eosinophils #) system whic h generated this result tra nsmitted reference range : <=0.5. The reference r lv was not used to int erpret this result as normal/abnormal . [facility] PasoEqoiphqERUEAITFBA8420-35-34 14:38:00 Test Item Value Reference Range Interpretation Comments HIV 1/2 Ab (test code Negative *NA*(08/03/15 = HIV 1/2 Ab) 9:38 AM) [facility] PasoIgjerpzXJABAZUYZN7533-58-14 14:38:00 Test Item Value Reference Range Interpretation Comments Hep C Ab (test code = Negative *NA*(08/03/15 Hep C Ab) 9:38 AM) [facility]
--- NOTE | 2021-05-13 13:39 | ER ---
Nurse's Notes [facility] Name: Bob Armstrong Age: 60 yrs Sex: Female : 1960 Arrival Date: 05/13/2021 Time: 13:11 Bed 9 Private MD: Ruben Menard F; Luciano Travis Diagnosis: Radiculopathy, cervical region Presentation: 05/13 13:25 Chief complaint: Patient states: Left arm and shoulder pain x 1 year, had an MRI last jl7 week to see what the problem is, reports pain is getting worse. Coronavirus screen: At this time, the client does not indicate any symptoms associated with coronavirus-19. Ebola Screen: No symptoms or risks identified at this time. Initial Sepsis Screen: Does the patient meet any 2 criteria? No. Patient's initial sepsis screen is negative. Does the patient have a suspected source of infection? No. Patient's initial sepsis screen is negative. Risk Assessment: Do you want to hurt yourself or someone else? Patient reports no desire to harm self or others. Onset of symptoms was 2020. 13:25 Method Of Arrival: Ambulatory jl7 13:25 Acuity: JERRY 4 jl7 Triage Assessment: 13:26 General: Appears in no apparent distress. uncomfortable, Behavior is calm, cooperative, jl7 appropriate for age. Pain: Complains of pain in left arm Pain currently is 8 out of 10 on a pain scale. 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 - Social history:: Smoking status: Patient denies any tobacco usage or history of. Screenin:50 Abuse screen: Denies threats or abuse. Denies injuries from another. Nutritional ld1 screening: No deficits noted. Tuberculosis screening: No symptoms or risk factors identified. Fall Risk None identified. Assessment: 13:51 Reassessment: see triage assessment. ld1 Vital Signs: 13:25 BP 123 / 70; Pulse 79; Resp 15; Temp 97.7; Pulse Ox 98% on R/A; Weight 105.69 kg; jl7 Height 5 ft. 11 in. (180.34 cm); Pain 8/10; 13:51 BP 127 / 72; Pulse 82; Resp 18; Pulse Ox 99% on R/A; ld1 13:25 Body Mass Index 32.50 (105.69 kg, 180.34 cm) jl7 ED Course: 13:11 Patient arrived in ED. as 13:13 Luciano Travis DO is Private Physician. as 13:13 Ruben Menard MD is Private Physician. as 13:17 Bev Flores FNP-C is [facility]. kb 13:17 Osmar Magallon MD is Attending Physician. kb 13:26 Triage completed. jl7 13:26 Arm band placed on right wrist. jl7 13:29 Bertha Zarate, RN is Primary Nurse. ld1 13:50 Patient has correct armband on for positive identification. Placed in gown. Bed in low ld1 position. Call light in reach. Side rails up X2. quality assurance monitor on. Pulse ox on. NIBP on. 13:51 No provider procedures requiring assistance completed. Patient did not have IV access ld1 during this emergency room visit. Administered Medications: 13:39 Drug: [place] (HYDROcodone-acetaminophen) (7.5 mg-325 mg) 1 tabs Route: PO; ld1 Outcome: 13:39 Discharge ordered by . kb 13:51 Discharged to home ambulatory. ld1 13:51 Condition: stable 13:51 Discharge instructions given to patient, Instructed on discharge instructions, follow up and referral plans. medication usage, Demonstrated understanding of instructions, follow-up care, medications, Prescriptions given X 1. 13:51 Patient left the ED. ld1 Signatures: Bev Flores FNP-C FNP-Snow Johnson Jahala RN RN jl7 Bertha Zarate, DANTE RN ld1
--- NOTE | 2021-05-13 13:40 | EDPHYS ---
Physician Documentation [facility] Name: Bob Armstrong Age: 60 yrs Sex: Female : 1960 Arrival Date: 05/13/2021 Time: 13:11 Bed 9 Private MD: Ruben Menard F; Patel, Mitesh ED Physician Osmar Magallon HPI: 05/13 13:37 This 60 yrs old Female presents to ER via Ambulatory with complaints of Arm Pain, kb Shoulder Pain. 13:37 The patient or guardian complains of pain. The complaints affect the posterior aspect kb of left shoulder. Context: The problem was sustained at an unknown location, resulted from unknown cause. Onset: The symptoms/episode began/occurred 1 year(s) ago. Treatment prior to arrival includes: no previous treatment. Modifying factors: The symptoms are alleviated by nothing. the symptoms are aggravated by nothing. Associated signs and symptoms: Pertinent positives: pain. Severity of symptoms: At their worst the symptoms were moderate, in the emergency department the symptoms are unchanged. The patient has not experienced similar symptoms in the past. The patient has been recently seen by a physician:. Pt reports pain to left shoulder that started a year ago. States the pain travels to neck and down arm. Has been seeing Dr Menard for this and had a MRI last week that he ordered, but doesn't see him again until 05/30/21. . 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 - Social history:: Smoking status: Patient denies any tobacco usage or history of. ROS: 13:37 Constitutional: Negative for fever, chills, and weight loss. kb 13:37 Neck: Positive for pain at rest. 13:37 MS/extremity: Positive for pain, of the left arm. 13:37 All other systems are negative. Exam: 13:37 Constitutional: This is a well developed, well nourished patient who is awake, alert, kb and in no acute distress. Head/Face: Normocephalic, atraumatic. ENT: Moist Mucous membranes Neck: Trachea midline, no thyromegaly or masses palpated, and no cervical lymphadenopathy. Supple, full range of motion without nuchal rigidity, or vertebral point tenderness. No Meningismus. Respiratory: Respirations even and unlabored. No increased work of breathing. Talking in full sentences Skin: Warm, dry with normal turgor. Normal color. MS/ Extremity: Pulses equal, no cyanosis. Neurovascular intact. Full, normal range of motion. Neuro: Awake and alert, GCS 15, oriented to person, place, time, and situation. Moves all extremities. Normal gait. Psych: Awake, alert, with orientation to person, place and time. Behavior, mood, and affect are within normal limits. Vital Signs: 13:25 BP 123 / 70; Pulse 79; Resp 15; Temp 97.7; Pulse Ox 98% on R/A; Weight 105.69 kg; jl7 Height 5 ft. 11 in. (180.34 cm); Pain 8/10; 13:51 BP 127 / 72; Pulse 82; Resp 18; Pulse Ox 99% on R/A; ld1 13:25 Body Mass Index 32.50 (105.69 kg, 180.34 cm) jl7 MDM: 13:28 Patient medically screened. kb 13:37 Data reviewed: vital signs, nurses notes. Data interpreted: Pulse oximetry: on room air kb is 98 %. Interpretation: normal. Counseling: I had a detailed discussion with the patient and/or guardian regarding: the historical points, exam findings, and any diagnostic results supporting the discharge/admit diagnosis, radiology results, the need for outpatient follow up, a neurologist, to return to the emergency department if symptoms worsen or persist or if there are any questions or concerns that arise at home. Administered Medications: 13:39 Drug: [place] (HYDROcodone-acetaminophen) (7.5 mg-325 mg) 1 tabs Route: PO; ld1 Disposition: 14:51 Co-signature as Attending Physician, Osmar Magallon MD. rn Disposition Summary: 05/13/21 13:39 Discharge Ordered Location: Home kb Condition: Stable kb Diagnosis - Radiculopathy, cervical region kb Followup: kb - With: Emergency Department - When: As needed - Reason: Worsening of condition Followup: kb - With: Private Physician - When: 2 - 3 days - Reason: Recheck today's complaints, Continuance of care, Re-evaluation by your physician Discharge Instructions: - Discharge Summary Sheet kb - Cervical Radiculopathy, [id number]-Kylb kb Forms: - Medication Reconciliation Form kb - Thank You Letter kb - Antibiotic Education kb - Prescription Opioid Use kb Prescriptions: - Neurontin 300 mg Oral Capsule - take 1 capsule by ORAL route At bedtime; 10 capsule; Refills: 0, Product kb Selection Permitted Signatures: Bev Flores, DICKC KAI-Osmar Manuel MD MD rn Alvino Diaz RN RN jl7 Bertha Zarate RN RN ld1
[2021-05-13] MEDS ORDERED: HYDROCODONE/APAP 7.5/325 MG TAB ONE (13:41)
[2021-05-13 14:35] VITALS: TEMP 97.7
[2021-05-13 14:37] VITALS: BP 127/72; O2SAT 99
== END 2021-05-13 13:51 | disposition home or self-care (01) ==
LOC: ER 13:09
DX: M54.12 Radiculopathy, cervical region (principal); Z88.8 Allergy status to other drugs, medicaments and biological substances
CPT/HCPCS: 99284

== ENCOUNTER 2021-08-27 12:47 | Emergency (ER) | payer OTHER ==
--- NOTE | 2021-08-27 13:37 | ER ---
Nurse's Notes [facility] Name: Bob Armstrong Age: 60 yrs Sex: Female : 1960 Arrival Date: 08/27/2021 Time: 12:48 Bed DIS5 Private MD: Luciano Travis Diagnosis: Laceration with foreign body of left thumb without damage to nail Presentation: 08/27 13:21 Chief complaint: Patient states: small avulsion of skin noted to R thumb sustained with ss Mandolin approximately 1 hour ago. Oozing of blood noted at this time. Coronavirus screen: Client denies travel out of the [place] in the last 14 days. Ebola Screen: Patient denies exposure to infectious person. Patient denies travel to an Ebola-affected area in the 21 days before illness onset. Complicating Factors: There are no complicating factors for this patient. Initial Sepsis Screen: Does the patient meet any 2 criteria? No. Patient's initial sepsis screen is negative. Does the patient have a suspected source of infection? No. Patient's initial sepsis screen is negative. Risk Assessment: Do you want to hurt yourself or someone else? Patient reports no desire to harm self or others. Onset of symptoms was August 27, 2021. 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 - Social history:: Smoking status: Patient denies any tobacco usage or history of. Screenin:24 Abuse screen: Denies threats or abuse. Denies injuries from another. Nutritional ss screening: No deficits noted. Tuberculosis screening: Never had TB. Fall Risk None identified. Assessment: 13:24 General: Appears in no apparent distress. comfortable, Behavior is calm, cooperative. ss Pain: Complains of pain in palmar aspect of distal phalanx of right thumb. Neuro: Level of Consciousness is awake, alert. Cardiovascular: Capillary refill < 3 seconds is brisk in bilateral fingers. Respiratory: Airway is patent Respiratory effort is even, unlabored, Respiratory pattern is regular, symmetrical. EENT: Nares are clear. Derm: Skin is intact, is healthy with good turgor, Skin is dry, Skin is pink, warm \\T\\ dry. normal. Musculoskeletal: Circulation, motion, and sensation intact. Range of motion: Swelling absent. Injury Description: Avulsion sustained to palmar aspect of distal phalanx of right thumb is partial small flap of skin to affected area. 14:04 Reassessment: Patient appears in no apparent distress at this time. Patient and/or ss family updated on plan of care and expected duration. Pain level reassessed. Vital Signs: 13:21 BP 144 / 87; Pulse 80; Resp 16; Temp 99.0(TE); Pulse Ox 100% on R/A; Weight 106.59 kg; ss Height 5 ft. 11 in. (180.34 cm); 13:21 Body Mass Index 32.78 (106.59 kg, 180.34 cm) ED Course: 12:48 Patient arrived in ED. as 12:49 Luciano Travis DO is Private Physician. as 13:23 Triage completed. ss 13:23 Arm band placed on right wrist. ss 13:24 Patient has correct armband on for positive identification. Bed in low position. Call ss light in reach. 13:29 David Rutledge DO is Attending Physician. ms3 13:35 Luciano Travis DO is Referral Physician. ms3 13:45 Kristel Meeks, DANTE is Primary Nurse. 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 Exp: ss 05/04/2023. Lot #: [id number]. } Route: IM; Site: left deltoid; 14:11 Follow up: Response: (VIS) Vaccine information sheet provided today. Questions and/or ss concerns addressed. VIS edition date: Sep 15, 2020.; No adverse reaction 13:46 Not Given (Other Intervention Used): ADAcel 0.5 ml IM once; indicated for adults and ss teenagers 11 to 64 years of age Medication: 13:24 Vaccine Information Statement (VIS) provided today. Questions and/or concerns ss addressed. VIS edition date: September 2021. Outcome: 13:36 Discharge ordered by . ms3 14:11 Patient left the ED. ss Signatures: Snow Ramirez Shelby, RN RN ss David Rutledge DO DO ms3
[2021-08-27] MEDS ORDERED: TETANUS & DIPHTHERIA TOX,ADULT 0.5 ML VIAL ONE (13:44)
[2021-08-27 14:17] VITALS: BP 144/87; TEMP 99; O2SAT 100
--- NOTE | 2021-08-28 14:12 | EDPHYS ---
Physician Documentation [facility] Name: Bob Armstrong Age: 60 yrs Sex: Female : 1960 Arrival Date: 08/27/2021 Time: 12:48 Bed DIS5 Private MD: [facility] ED Physician David Rutledge HPI: 08/27 13:36 This 60 yrs old Female presents to ER via Ambulatory with complaints of Laceration - ms3 thumb. 13:36 The patient or guardian reports a laceration, clean, avulsion. The complaints affect ms3 the palmar aspect of distal phalanx of right thumb. Context: The problem was sustained at home. Onset: The symptoms/episode began/occurred 1 hour(s) ago. Modifying factors: The symptoms are alleviated by nothing, the symptoms are aggravated by nothing. Associated signs and symptoms: The patient has no apparent associated signs or symptoms. Severity of symptoms: At their worst the symptoms were moderate, in the emergency department the symptoms a " 8" out of "10". 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 - Social history:: Smoking status: Patient denies any tobacco usage or history of. ROS: 13:36 Constitutional: Negative for fever, and chills. Neck: Negative for injury, pain, and ms3 swelling, Cardiovascular: Negative for chest pain, and palpitations. Respiratory: Negative for shortness of breath, cough, wheezing, and pleuritic chest pain, Abdomen/GI: Negative for abdominal pain, nausea, vomiting, diarrhea, and constipation, Neuro: Negative for headache, weakness, numbness, tingling. 13:36 Skin: Positive for laceration(s). 13:36 All other systems are negative. Exam: 13:36 Constitutional: This is a well developed, well nourished patient who is awake, alert, ms3 and in no acute distress. Head/Face: Normocephalic, atraumatic. Eyes: Pupils equal round and reactive to light, extra-ocular motions intact. Lids and lashes normal. Conjunctiva and sclera are non-icteric and not injected. Periorbital areas with no swelling, redness, or edema. Neck: Trachea midline, no cervical lymphadenopathy. Supple, full range of motion without nuchal rigidity, or vertebral point tenderness. No Meningismus. Chest/axilla: Normal chest wall appearance and motion. Nontender with no deformity. Cardiovascular: Regular rate and rhythm with a normal S1 and S2. No gallops, murmurs, or rubs. Normal PMI, no JVD. No pulse deficits. Respiratory: Lungs have equal breath sounds bilaterally, clear to auscultation and percussion. No rales, rhonchi or wheezes noted. No increased work of breathing, no retractions or nasal flaring. Abdomen/GI: Soft, non-tender, with normal bowel sounds. No distension or tympany. No guarding or rebound. No evidence of tenderness throughout. 13:36 Skin: injury, laceration(s), the wound is approximately 1.5 cm(s), that can be described as clean, with mild bleeding, avulsion. Vital Signs: 13:21 BP 144 / 87; Pulse 80; Resp 16; Temp 99.0(TE); Pulse Ox 100% on R/A; Weight 106.59 kg; ss Height 5 ft. 11 in. (180.34 cm); 13:21 Body Mass Index 32.78 (106.59 kg, 180.34 cm) ss MDM: 13:35 Patient medically screened. ms3 13:36 Differential diagnosis: skin avulsion. Data reviewed: vital signs, nurses notes. ms3 Counseling: I had a detailed discussion with the patient and/or guardian regarding: the historical points, exam findings, and any diagnostic results supporting the discharge/admit diagnosis, the need for outpatient follow up, to return to the emergency department if symptoms worsen or persist or if there are any questions or concerns that arise at home. ED course: Discussed physical exam findings with patient. Patient to follow-up with primary care physician in 2 to 3 days. Patient understands and agrees with plan. All questions were answered. Return precautions discussed include worsening symptoms, or any other concerns. . 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 Exp: ss 05/04/2023. Lot #: [id number]. } Route: IM; Site: left deltoid; 14:11 Follow up: Response: (VIS) Vaccine information sheet provided today. Questions and/or ss concerns addressed. VIS edition date: Sep 15, 2020.; No adverse reaction 13:46 Not Given (Other Intervention Used): ADAcel 0.5 ml IM once; indicated for adults and ss teenagers 11 to 64 years of age Disposition Summary: 08/27/21 13:36 Discharge Ordered Location: Home ms3 Condition: Stable ms3 Diagnosis - Laceration with foreign body of left thumb without damage to nail ms3 Followup: ms3 - With: Luciano Travis DO - When: 2 - 3 days - Reason: Recheck today's complaints Discharge Instructions: - Discharge Summary Sheet ms3 - Laceration Care, Adult ms3 Forms: - Medication Reconciliation Form ms3 - Thank You Letter ms3 - Antibiotic Education ms3 - Prescription Opioid Use ms3 Signatures: Kristel Meeks, RN RN David Weinberg DO DO ms3
== END 2021-08-27 14:11 | disposition home or self-care (01) ==
LOC: ER 12:47
DX: S61.012A Laceration without foreign body of left thumb without damage to nail, initial encounter (principal); I10 Essential (primary) hypertension; E11.9 Type 2 diabetes mellitus without complications; Z23 Encounter for immunization; Z88.1 Allergy status to other antibiotic agents; Z88.8 Allergy status to other drugs, medicaments and biological substances
CPT/HCPCS: 90471; 90714; 99282

== ENCOUNTER 2021-11-30 13:43 | Emergency (ER) | payer OTHER ==
--- OUTSIDE RECORDS SUMMARY | 2021-11-30 13:59 | XMS REPORT | Continuity of Care Document ---
:1960 Author Organization [facility] t Address [address] [place] [address] Care Team Providers Name Role Phone Luciano Travis Primary Care Physician [phone] Luciano Travis Attending Clinician Unavailable ANDRESSA PUCKETT Attending Clinician Unavailable SHEFALI HOOPER Attending Clinician Unavailable Brody Hinds MD Attending Clinician BRODY HINDS Attending Clinician Unavailable Doctor Unassigned, Brillion Attending Clinician Unavailable Ct Spence RN Attending Clinician Unavailable RASHMI FLETCHER Attending Clinician Unavailable Rashmi Cardoza Attending Clinician Radiology Attending Clinician Unavailable RADIOLOGY Attending Clinician Unavailable Greg Peacock MD Attending Clinician Nida Wheeler MD Attending Clinician Adriana Carney PA-C Attending Clinician ADRIANA CARNEY Attending Clinician Unavailable Goldie Huber MD Attending Clinician GOLDIE HUBER Attending Clinician Unavailable Kingsley Corado MD Attending Clinician Chloe Minor MD Attending Clinician Rena Main Attending Clinician SHEFALI HOOPER NP Attending Clinician Unavailable LAVERN HUFFMAN Attending Clinician Unavailable Julio C Rutherford Attending Clinician ANDRESSA PUCKETT M.D. Attending Clinician Unavailable Andressa Puckett Attending Clinician CHLOE MINOR Admitting Clinician Unavailable Payers Payer Name Policy Type Policy Number Effective Date Expiration Date S gaby [facility] [id number] 2020 00:00:00 [employer] MEDICARE [id number] 2020 00:00:00 AARP MCR [id number] 2021 [facility] ADVANTAGE 00:00:00 - [facility] [id number] 2013 2020 00:00:00 00:00:00 Problems Condition Condition [...] a eye eye 00 l H92.01 - H92.01 - Diagnosis Active 2019-022019-11-25 Memoria "OTALGIA, "OTALGIA, 0-01 12:00:00 l RIGHT EAR" RIGHT EAR" 00:01: He rmann Active 00 11/11/2019 NISHA [place] Troponin I Troponin I Disease Active U nivers above above 6-12 [place] of [place] range 00 [place] Elevated Elevated Disease Active Unive rs brain brain 6-12 ity of natriureti [place]ure[place] c peptide c peptide 00 Medi susana (BNP) (BNP) Branch level level HTN HTN Disease Active Univers (hypertens (hypertens 6-12 it y of ion) ion) 00:00: [place] 00 Medical Branch Type 2 [...] infection) 00 Me dical Branch RIGHT KNEE RIGHT Diagnosis Active 2016-04-01 Memoria PAIN KNEE PAIN 2-20 12:48:00 l Active 00:00: [place] 04/01/2016 00 [place] STRESS STRESS Diagnosis Active 2015-08-10 Me moria URINARY URINARY 4-14 07:24:00 l INCONTINEN INCONTINEN 00:00: Mikel salgado CE-N39.3 / CE-N39.3 / 00 URET URET Active 05/25/2015 [place] R31.2 - R31.2 - Diagnosis Active 2015-06-06 Memoria OTHER OTHER 3-14 16:22:00 l MICROSCOPI MICROSCOPI 00:01: Mikel Pineda C 00 HEMATURIA HEMATURIA Active 04/24/2015 [facility] [address] OPID [place] 727.00 - 727.00 - Diagnosis Active 2011-09-02 Memoria SYNOVITIS SYNOVITIS 7-20 08:58:00 l NOS NOS Active 00:01: Randy iqbal 08/30/2011 00 [facility] Restless Restless Problem Active Commo n legs leg Spirit syndrome syndrome - [facility]I [facility] Fibromyalg Fibromyalg Problem Active C ommon ia ia [facility] - [facility] Type II Diabetes Problem Active Common diabetes type 2, Spirit mellitus controlled - CH I well [facility] Morbid Morbid Problem Active Common obesity obesity [facility] [id number] Body mass Problem Active Com mon index Spirit [BMI] - CHI 32.0-32.9, [facility] [id number] Other Problem Active Common obesity Spirit due to - CHI excess [facility] Diabetic Diabetic Problem Active Commo n neuropathy neuropathy Sp marco antonio - CHI [facility] Fatty Fatty Problem Active Common liver liver [facility] Insomnia Insomnia Problem Active Commo n Spirit [facility] [id number] Incontinen Problem Active Com mon ce of Spirit feces, - CHI unspecifie [facility] fecal [facility] incontinen Medica l ce [facility] [id number] Psoriatic Problem Active Com mon arthritis [facility] Bipolar Bipolar Problem Active Common disorder disorder Spirit [facility] [id number] GERD Problem Active Common without Spirit esophagiti - [facility] s [facility] Circadian Circadian Problem Active Com mon rhythm rhythm Spirit sleep sleep - CHI disorder disorder, St of 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 [facility] work type type [facility] Ankylosing Ankylosing Problem Active C ommon spondyliti spondyliti Sp marco antonio s s of - CHI multiple St sites in [facility] spine [facility] Mixed Hyperlipid Problem Active Commo n hyperlipid emia, Spirit emia mixed [facility] Iron Iron Problem Active Common deficiency deficiency Sp marco antonio anemia due anemia due - CHI to chronic to chronic St blood loss blood loss [facility] Obstructiv Obstructiv Problem Active C ommon e sleep e sleep Spirit apnea apnea - [facility] Overactive Overactive Problem Active C ommon bladder bladder Spirit [facility] [id number] Chronic Problem Active Common obstructiv Spirit e - CHI pulmonary [facility] unspecifie Medica l d COPD Center type [id number] Primary Problem Active Commo n osteoarthr Spirit itis of - CHI both knees [facility] [id number] Urinary Problem Active Commo n incontinen Spirit ce, - CHI unspecifie [facility] [id number] Altered Problem Active Commo n mental Spirit status, - CHI unspecifie [facility] 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 - [facility] 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 [facility] [id number] Decreased Problem Active Com mon vision of Spirit left eye [facility] Essential Benign Problem Active Common hypertensi essential Spi rit on HTN [facility] [id number] Daytime Problem Active Comm on 00 somnolence [facility] Vitamin D Vitamin D Problem Active Com mon deficiency deficiency Sp marco antonio [facility] Rheumatoid Rheumatoid Problem Active C ommon arthritis arthritis Spir it [facility] [id number] Type 2 Problem Active Common diabetes Spirit mellitus - [facility] with [facility] kidney Center disease [id number] Type 2 Problem Active Common diabetes Spirit mellitus - [facility] with [facility] [id number] Memory Problem Active Common change [facility] [id number] History of Problem Active Co mmon suicidal [facility] ideation [facility] Anxiety Anxiety Problem Resolve 2019-11-26 M emoria (finding) (finding) d 23:02:23 l Resolved [place] [facility] [place] Depressive Depressiv Problem Resolve 2019-11-26 Memoria disorder e disorder d 23:02:23 l (disorder) (disorder) He rmann Resolved Problem 11/26/2019 [facility] [place] Diabetes Diabetes Problem Resolve 2019-11-26 Memoria mellitus mellitus d 23:02:23 l (disorder) (disorder) He rmann Resolved Problem 11/26/2019 NISHA [place] [place] Endometrio Endometri Problem Resolve 2019-11-26 Memoria sis osis d 23:02:23 l (disorder) (disorder) He rmann Resolved Problem 11/26/2019 [facility] [place] Fibromyosi Fibromyos Problem Resolve 2019-11-26 Memoria tis itis d 23:02:23 l (disorder) (disorder) He rmann Resolved Problem 11/26/2019 NISHA [place] [place] Lumbar Lumbar Problem Resolve 2019-11-26 Mem oria spondylosi spondylosi d 23:02:23 l s s [place] (disorder) (disorder) Resolved Problem 11/26/2019 NISHA Keenan,Tomasa Antoine [place] Motion Motion Problem Resolve 2019-11-26 Mem oria sickness sickness d 23:02:23 l (disorder) (disorder) He rmann Resolved Problem 11/26/2019 Tomasa Farrar H [place] Neuropathy Neuropath Problem Resolve 2019-11-26 Memoria (disorder) y d 23:02:23 l (disorder) Randy n Resolved Problem 11/26/2019 Tomasa Farrar [place] Sleep Sleep Problem Resolve 2019-11-26 Mem oria apnea apnea d 23:02:23 l (finding) (finding) Daisha archana Resolved Problem 11/26/2019 Tomasa Farrar H [place] History of History of Problem Resolve UT arthritis arthritis HL7.CCDAR2 d Physici ans History of History of Problem Resolve UT depression depression HL7.CCDAR2 d Physici ans History of History of Problem Resolve UT diabetes diabetes HL7.CCDAR2 d Ph ysici mellitus mellitus ans History of History of Problem Resolve UT essential essential HL7.CCDAR2 d Physici hypertensi hypertensi an s on on History of History of Problem Resolve UT fibromyalg fibromyalg HL7.CCDAR2 d Physici ia ia ans Hematuria, Hematuria, Problem Active U T microscopi microscopi HL7.CCDAR2 Physici c c ans Cystitis, Cystitis, Problem Active UT acute acute HL7.CCDAR2 Physic i ans Post-opera Post-opera Problem Active U T tive state tive state HL7.CCDAR2 Physici ans Postop Postop Problem Active UT check check HL7.CCDAR2 Physic i ans Enuresis Enuresis Problem Active UT HL7.CCDAR2 Physic i ans Nocturia Nocturia Problem Active UT HL7.CCDAR2 Physic i ans Chronic Chronic Problem Active UT cystitis cystitis HL7.CCDAR2 Ph ysici ans Recent Recent Problem Active UT urinary urinary HL7.CCDAR2 Phys ici tract tract ans infection infection Yeast Yeast Problem Active UT vaginitis vaginitis HL7.CCDAR2 Physici ans Vaginitis Vaginitis Problem Active UT HL7.CCDAR2 Physic i ans Mixed urge Mixed urge Problem Active U T and stress and stress HL7.CCDAR2 Physici incontinen incontinen an s ce ce Vaginal Vaginal Problem Active UT burning burning HL7.CCDAR2 Phys ici ans Vaginal Vaginal Problem Active UT irritation irritation HL7.CCDAR2 Physici ans Vaginal Vaginal Problem Active UT discharge discharge HL7.CCDAR2 Physici ans Bacterial Bacterial Problem Active UT vaginosis vaginosis HL7.CCDAR2 Physici ans Dysuria Dysuria Problem Active UT HL7.CCDAR2 Physic i ans History of Past Illness Condition Condition Condition Status Onset Resolution Last Treating Co mments Source Name Details Category Date Date Treatment Clinician Date Discharge Discharge Problem 2016-04-04 2016-04-04 Memsam Diagnosis: Diagnosis: 2- 04:32:29 04:32:29 l Pain and Pain and 06:00: Randy n swelling swelling 00 of right of right knee knee 04/01/2016 04/04/2016 [place] Allergies, Adverse Reactions, Alerts Allergy Allergy Status [...] Uni vers ycin ty to See comments -12 ity of adverse 00:00: [place] reaction 00 Medical s Branch AZITHROM DRUG Active Unknown-Cmnt Un emanuel YCIN INGREDI -12 ity of 00:00: [place] 00 Medical Branch Lactase Allergy Active Diarrhea UT to 6-11 Health substanc 00:00: e 00 Lactase Propensi Active Diarrhea Unive rs ty to 611 ity of adverse 00:00: [place] reaction 00 Medical s Branch Pregabal Propensi Active Swelling 2017- Univ ers in ty to 6-11 ity of adverse 00:00: [place] reaction 00 Medical s Branch LACTASE DRUG Active Diarrhea 2016- Univers INGREDI 07-21 ity of 00:00: [place] 00 Medical Branch PREGABAL DRUG Active Swelling 2016- Univer s IN INGREDI 07-21 ity of 00:00: [place] Medical Branch Pregabal Propensi Active Swelling 2015-02 Meth gwen in ty to 02-18 st adverse 00:00: Hospita reaction 00 l s to drug Methylpr Allergy Active 2015-02 Other OR ednisolo to 0-29 reaction( Healt h ne substanc 00:00: s): e 00 Nausea/Vo miting, Unknown metformi metformi Active Unknown Commo n n n [facility] pregabal pregabal Active Unknown Commo n in in [facility] canaglif canaglif Active Unknown Commo n lozin lozin [facility] Methylpr Methylpr Active Unknown Commo n ednisolo ednisolo [facility] glimepir glimepir Active Unknown Commo n timothy timothy [facility] Lyrica Lyrica Active Memoria l [place] Latex Latex Active Memoria l [place] Adhesive Adhesive Active Memori a l [place] Family History Family Member Diagnosis Comments Start Date Stop Date Source Natural father Stroke [facility] Natural mother Lung cancer [facility] Mother Family history of [facility] Phys icians diabetes mellitus Mother Family history of [facility] lung cancer Mother Family history of [facility] Phys [facility] hypertension Father Family history of [facility] Phys icians stroke Brother Family history of [facility] Phys icians diabetes mellitus Social History Social Habit Start Date Stop Date Quantity Comments Source History of [facility] - Tobacco Use [facility] Exposure to 2021-10-10 2021-10-20 Not sure [place] Health SARS-CoV-2 00:00:00 15:53:00 (event) Alcohol intake 2020-06-22 2020-06-22 [facility] 00:00:00 00:00:00 non-drinker of alcohol (finding) Tobacco use and 2016-07-21 2016-07-21 Smokeless tobacco Un iversity of exposure 00:00:00 00:00:00 non-user [facility] [place] [facility] Social History 2015-08-03 2015-08-03 [facility] Arash rivera 14:18:54 14:18:54 Sex [birth year] [facility] 00:00:00 00:00:00 Smoking Status Start Date Stop Date Source Never Smoker [facility] Medications Ordered Filled Start Stop Current Ordering Indication Dosage Frequency Signature Comments Components Source Medication Medication Date Date Medication? Clinician (SIG) Name Name botulinum 2021- No 100U 100 Units, U T toxin Type 10-24 Intramuscu He alth A (Cosm) 18:30: 20:58 lar, Once, (Botox) 00 :00 On Fri injection 10/24/21 at 100 Units 1330, For 1 dose
In dications: urgency incontinen ce botulinum 2021- No 100U UT toxin Type 10-24 Health A (Cosm) 18:30: 20:58 (Botox) 00 :00 injection 100 Units lisinopril- 0 Yes 1{tbl} QD Take 1 UT hydroCHLORO 9-14 tablet by Hea lt thiazide 14:07: mouth 1 20-12.5 MG 53 (one) time tablet each day. leflunomide 0 Yes 20mg QD Take 20 mg UT (Arava) 20 9-14 by mouth 1 Hea lth MG tablet 14:07: (one) time 53 each day. lisinopril- 0 Yes 1{tbl} QD Take 1 UT hydroCHLORO 9-14 tablet by Hea lth thiazide 14:07: mouth 1 20-12.5 MG 53 (one) time tablet each day. leflunomide 2021-0 Yes 20mg QD Take 20 mg UT (Arava) 20 9-14 by mouth 1 Hea lth MG tablet 14:07: (one) time 53 each day. gabapentin Yes 1{capsu 1 capsule. UT (Neurontin) 9-14 le} Health 300 MG 14:04: capsule 54 gabapentin 2021-0 Yes 1{capsu 1 capsule. UT (Neurontin) 9-14 le} Health 300 MG 14:04: capsule 54 sulfamethox 2022-0 2022- Yes [id number] 1{tbl} Q.5D Take 1 UT azole-trime 10-24 tablet by He alth thoprim 00:00: 04:59 mouth in (Bactrim 00 :00 the DS) 800-160 morning MG tablet and 1 tablet in the evening. Do all this for 7 days. sulfamethox 2021- Yes [id number] 1{tbl} Q.5D Take 1 UT azole-trime 10-24 tablet by He alth thoprim 00:00: 04:59 mouth in (Bactrim 00 :00 the DS) 800-160 morning MG tablet and 1 tablet in the evening. Do all this for 7 days. gabapentin 2021-0 Yes 1200mg Take 1,200 Univers 600 mg 8-31 mg by ity of tablet 13:32: mouth in [address] Medical morning [place] and 1,200 mg in the evening. gabapentin 2021-0 Yes 1200mg Take 1,200 Univers 600 mg 8-31 mg by ity of tablet 13:32: mouth in [address] Medical morning [place] and 1,200 mg in the evening. gabapentin 2021-0 Yes 1200mg Take 1,200 Univers 600 mg 8-31 mg by ity of tablet 13:32: mouth in [address] and 1,200 mg in the evening. prednisoLON 2021-2021- No 1[drp] 1 Drop U nivers E acetate 1 8- 08-31 every 2 ity of % 13:30: 00:00 (two) [place] ophthalmic 41 :00 hours as Medic al suspension needed for Bra nch drops Itching. prednisoLON 2021-0 2021- No 1[drp] 1 Drop U nivers E acetate 1 8- 08-31 every 2 ity of % 13:30: 00:00 (two) [place] ophthalmic 41 :00 hours as Medic al suspension needed for Bra nch drops Itching. pilocarpine 2021-2021- No 7.5mg Take 7.5 Univers 7.5 mg 8-31 08-31 mg by ity of tablet 13:30: 00:00 mouth 3 [place] 38 :00 (three) Medical times [place] daily. pilocarpine 2021-2021- No 7.5mg Take 7.5 Univers 7.5 mg 8-31 08-31 mg by ity of tablet 13:30: 00:00 mouth 3 [place] 38 :00 (three) Medical times Branch daily. Milnacipran 2021- No 50mg Take 50 mg Univers (SAVELLA) 10-10 by mouth ity o f 50 mg 13:30: 00:00 at [place] tablet 29 :00 bedtime. Medical Branch Milnacipran 2021- No 50mg Take 50 mg Univers (SAVELLA) 10-10 by mouth ity o f 50 mg 13:30: 00:00 at [place] tablet 29 :00 bedtime. Medical Branch suvorexant 2021- No 20mg Take 20 mg Univers (BELSOMRA) 10-10 by mouth ity of 20 mg Tab 13:30: 00:00 at [place] 19 :00 bedtime. Medical Branch suvorexant 2021- No 20mg Take 20 mg Univers (BELSOMRA) 10-10 by mouth ity of 20 mg Tab 13:30: 00:00 at [place] 19 :00 bedtime. Medical Branch simvastatin 2021- No 40mg Take 40 mg Univers 40 mg 10-10 by mouth ity of tablet 13:30: 00:00 at [place] 04 :00 bedtime. Medical Branch simvastatin 2021- No 40mg Take 40 mg Univers 40 mg 10-10 by mouth ity of tablet 13:30: 00:00 at [place] 04 :00 bedtime. Medical Branch insulin 2021- No 160U inject 160 Uni vers glargine 10-10 Units ity of U-300 conc 13:29: 00:00 under the [place] (TOUJEO 49 :00 skin. [facility] U-300 INSULIN) 300 unit/mL (1.5 mL) In insulin 2021- No 160U inject 160 Uni vers glargine 10-10 Units ity of U-300 conc 13:29: 00:00 under the [place] (TOUJEO 49 :00 skin. [facility] Branch U-300 INSULIN) 300 unit/mL (1.5 mL) In traZODONE 2021-0 2021- No 100mg Take Univer s 100 mg 10-10 100-200 mg ity of tablet 13:: 00:00 by mouth [place] 30 :00 at bedtime Medical as needed Branch for Insomnia. traZODONE 2021-0 2021- No 100mg Take Univer s 100 mg 10-10 100-200 mg ity of tablet 13:29: 00:00 by mouth [place] 30 :00 at bedtime Medical as needed Branch for Insomnia. SERTraline 2021-0 2021- No 50mg Take 50 mg Univers 50 mg 10-10 by mouth. ity of tablet 13:: 00:00 [place] 05 :00 Medical Branch SERTraline 2021-0 2021- No 50mg Take 50 mg Univers 50 mg 10-10 by mouth. ity of tablet 13:: 00:00 [place] 05 :00 Medical Branch lithium 2021-0 2021- No 300mg Take 300 Univ ers carbonate 10-10 08-31 mg by ity of 300 mg 13:28: 00:00 mouth. [place] capsule 53 :00 [facility] Branch lithium 2021-0 2021- No 300mg Take 300 Univ ers carbonate 10-10 08-31 mg by ity of 300 mg 13:28: 00:00 mouth. [place] capsule 53 :00 [facility] Branch hydroxychlo 2021-0 2021- No 200mg Take 200 Univers roquine 200 8- 08-31 mg by ity of mg tablet 13:28: 00:00 mouth 2 [place] :[place] (two) Medical times Branch daily. hydroxychlo 2021-0 2021- No 200mg Take 200 Univers roquine 200 8- 08-31 mg by ity of mg tablet 13:28: 00:00 mouth 2 [place] 44 :[place] (two) Medical times Branch daily. foLIC acid 2021-0 2021- No 2mg Take 2 mg U nivers 1 mg tablet 10-10 by mouth ity of 13:28: 00:00 daily. [place] 25 :00 [facility] Branch foLIC acid 2021-0 2- No 2mg Take 2 mg U nivers 1 mg tablet 10-10 by mouth ity of 13:28: 00:00 daily. [place] 25 :00 Medical Branch exenatide 2021-2021- No 2mg inject 2 Uni vers microsphere 10-10 08-31 mg under ity of s 2 mg/0.65 13:27: 00:00 the skin. [facility] 56 :00 Medical injection Branch exenatide 2021-2021- No 2mg inject 2 Uni vers microsphere 10-10 08-31 mg under ity of s 2 mg/0.65 13:27: 00:00 the skin. [facility] 56 :00 Medical injection Branch doxepin 10 2021-2021- No 10mg Take 10 mg Univers mg capsule 10-10 by mouth. ity of 13:27: 00:00 [place] 38 :00 Medical Branch doxepin 10 2021-2021- No 10mg Take 10 mg Univers mg capsule 10-10 by mouth. ity of 13:27: 00:00 [place] 38 :00 Medical Branch cycloSPORIN 2021-2021- No 1[drp] Place 1 Univers E 10-10- Drop in ity of (RESTASIS) 13:27: 00:00 both eyes [place] 0.05 % 35 :00 every 12 Medical drops (twelve) Branch hours. cycloSPORIN 2021-0 2021- No 1[drp] Place 1 Univers E 10-10- Drop in ity of (RESTASIS) 13:27: 00:00 both eyes [place] 0.05 % 35 :00 every 12 Medical drops (twelve) Branch hours. cyclobenzap 2021- 2022- No 10mg Take 10 mg Univers rine 10 mg 10-10- by mouth 3 it y of tablet 13:27: 00:00 (three) [place] 32 :00 times Medical daily. Branch cyclobenzap 2021-0 2021- No 10mg Take 10 mg Univers rine 10 mg 10-10-31 by mouth 3 it y of tablet 13:27: 00:00 (three) [place] 32 :00 times Medical daily. Branch celecoxib 2021-0 2022- No 200mg Take 200 Un emanuel (CELEBREX) 8- 08-31 mg by ity of 200 mg 13:27: 00:00 mouth 2 [place] capsule 25 :00 (two) Medical times Branch daily. celecoxib 2021-0 2022- No 200mg Take 200 Un emanuel (CELEBREX) 10-10 08-31 mg by ity of 200 mg 13:27: 00:00 mouth 2 [place] capsule 25 :00 (two) Medical times Branch daily. aspirin 81 2021- No 81mg Take 81 mg Univers mg chewable 10-10 by mouth ity of tablet 13:27: 00:00 daily. [place] 22 :00 Medical Branch aspirin 81 2021- No 81mg Take 81 mg Univers mg chewable 10-10 by mouth ity of tablet 13:27: 00:00 daily. [place] 22 :00 Medical Branch Armodafinil 2021- No 250mg Take 250 Univers (NUVIGIL) 10-10 08-31 mg by ity of 250 mg Tab 13:27: 00:00 mouth [place] 19 :00 daily. Medical Branch Armodafinil 2021- No 250mg Take 250 Univers (NUVIGIL) 10-10-31 mg by ity of 250 mg Tab 13:27: 00:00 mouth [place] 19 :00 daily. Medical Branch ARIPiprazol 2021- No 20mg Take 20 mg Univers e (ABILIFY) 10-10 by mouth ity of 20 mg 13:27: 00:00 at [place] tablet 16 :00 bedtime. Medical Branch ARIPiprazol 2021- No 20mg Take 20 mg Univers e (ABILIFY) 10-10 by mouth ity of 20 mg 13:27: 00:00 at [place] tablet 16 :00 bedtime. Medical Branch insulin Yes as UT degludec 10-10 directed Health (Tresiba 00:00: Subcutaneo FlexTouch) 00 us 200 UNIT/ML injection semaglutide Yes as UT (Ozempic, 10-10 directed Health 0.25 or 0.5 00:00: Subcutaneo MG/DOSE,) 2 00 us MG/1.5ML solution pen-injecto r insulin Yes as UT degludec 10-10 directed Health (Tresiba 00:00: Subcutaneo FlexTouch) 00 us 200 UNIT/ML injection semaglutide 0 Yes as UT (Ozempic, 10-10 directed Health 0.25 or 0.5 00:00: Subcutaneo MG/DOSE,) 2 00 us MG/1.5ML solution pen-injecto r semaglutide Yes [id number] Take U nivers (OZEMPIC) 10-10 0.25mg ity of 0.25 mg or 00:00: weekly for [place] 0.5 mg(2 00 two weeks, Medic al mg/1.5 mL) then Branch PnIj increase to 0.5mg weekly if tolerate insulin Yes [id number] 30U inject Uni vers degludec 10-10 30-40 ity of (TRESIBA 00:00: Units [place] FLEXTOUCH 00 under the Medic al U-200) 200 skin every Bra nch unit/mL (3 morning. mL) InPn E11 flash Yes [id number] 1{kit} 1 Kit Univ ers glucose 10-10 every 14 ity of sensor 00:00: (fourteen) [place] (FREESTYLE 00 days. Medical TERRI 2 65 Branch SENSOR) Kit Insulin Yes [id number] Use as Uni vers [place], 10-10 directed ity of Disposable, 00:00: once daily [place] (BD LOUIE Medical 2ND GEN PEN Branch NEEDLE) 32 gauge x 5/32" Ndle semaglutide Yes [id number] Take U nivers (OZEMPIC) 10-10 0.25mg ity of 0.25 mg or 00:00: weekly for [place] 0.5 mg(2 two weeks, Medic al mg/1.5 mL) then Branch PnIj increase to 0.5mg weekly if tolerate insulin Yes [id number] 30U inject Uni vers degludec 10-10 30-40 ity of (TRESIBA 00:00: Units [place] FLEXTOUCH 00 under the Medic al U-200) 200 skin every Bra nch unit/mL (3 morning. mL) InPn E1165 flash Yes [id number] 1{kit} 1 Kit Univ ers glucose 10-10 every 14 ity of sensor 00:00: (fourteen) [place] (FREESTYLE 00 days. Medical TERRI 2 E11.65 Branch SENSOR) Kit Insulin Yes [id number] Use as Uni vers [place], 8- directed ity of Disposable, 00:00: once daily [place] (BD LOUIE E11.65 Medical 2ND GEN PEN Branch NEEDLE) 32 gauge x 5/32" Ndle semaglutide Yes [id number] Take U nivers (OZEMPIC) 10-10 0.25mg ity of 0.25 mg or 00:00: weekly for [place] 0.5 mg(2 00 two weeks, Medic al mg/1.5 mL) then Branch PnIj increase to 0.5mg weekly if tolerate insulin Yes [id number] 30U inject Uni vers degludec 10-10 30-40 ity of (TRESIBA 00:00: Units [place] FLEXTOUCH 00 under the Medic al U-200) 200 skin every Bra nch unit/mL (3 morning. mL) InPn E11.65 flash Yes [id number] 1{kit} 1 Kit Univ ers glucose 10-10 every 14 ity of sensor 00:00: (fourteen) [place] (FREESTYLE 00 days. Medical TERRI 2 E11.65 Branch SENSOR) Kit Insulin Yes [id number] Use as Uni vers [place], 8 directed ity of Disposable, 00:00: once daily [place] (BD LOUIE E11.65 Medical 2ND GEN PEN Branch NEEDLE) 32 gauge x 5/32" Ndle flash 2021- No [id number] 1{kit} 1 Kit Uni vers glucose 10-10 08-31 every 14 ity of sensor 00:00: 00:00 (fourteen[place] (FREESTYLE 00 :00 days. Medical TERRI 2 E11.65 Branch SENSOR) Kit flash 0 2021- No [id number] 1{kit} 1 Kit Uni vers glucose 10-10 08-31 every 14 ity of sensor 00:00: 00:00 (fourteen[place] (FREESTYLE 00 :00 days. Medical TERRI 2 E11.65 Branch SENSOR) Kit traMADol traMADol 2021- No 1{table QD traMADol HCl 50 MG HCl 50 MG 04-03- t_as_ne HCl 50 MG 00:00: 00:00 eded} 00 :00 sulfamethox Yes [id number] 1{tbl} Take 1 Univers azole-trime 2-14 tablet by ity of thoprim 00:00: mouth [place] 800-160 mg 00 every 12 Medic al per tablet (twelve) Branc h hours. doxycycline 2-0 Yes [id number] 100mg Take 1 [facility] hyclate 100 2-14 capsule by it y of mg capsule 00:00: mouth 2 [place] 00 (two) Medical times Branch daily. sulfamethox 2-0 Yes [id number] 1{tbl} Take 1 [facility] azole-trime 2-14 tablet by ity of thoprim 00:00: mouth [place] 800-160 mg 00 every 12 Medic al per tablet (twelve) Branc h hours. doxycycline 2021-0 Yes [id number] 100mg Take 1 [facility] hyclate 100 2-14 capsule by it y of mg capsule 00:00: mouth 2 [place] 00 (two) Medical times Branch daily. sulfamethox 2021-0 Yes [id number] 1{tbl} Take 1 [facility] azole-trime 2-14 tablet by ity of thoprim 00:00: mouth [place] 800-160 mg 00 every 12 Medic al per tablet (twelve) Branc h hours. doxycycline 2021-0 Yes [id number] 100mg Take 1 [facility] hyclate 100 2-14 capsule by it y of mg capsule 00:00: mouth 2 [place] 00 (two) Medical times Branch daily. sulfamethox 2021-0 2022- No [id number] 1{tbl} Take 1 [facility] azole-trime 2-14 08-31 tablet by it y of thoprim 00:00: 00:00 mouth [place] 800-160 mg 00 :00 every 12 Medic al per tablet (twelve) Branc h hours. doxycycline 2-0 2022- No [id number] 100mg Take 1 Univers hyclate 100 2-14 08-31 capsule by i ty of mg capsule 00:00: 00:00 mouth 2 [place] 00 :00 (two) Medical times Branch daily. sulfamethox 2022-0 2022- No [id number] 1{tbl} Take 1 Univers azole-trime 2-14 08-31 tablet by it y of thoprim 00:00: 00:00 mouth [place] 800-160 mg 00 :00 every 12 Medic al per tablet (twelve) Branc h hours. doxycycline 2021- No [id number] 100mg Take 1 [facility] hyclate 100 14 - capsule by i ty of mg capsule 00:00: 00:00 mouth 2 [place] 00 :00 (two) Medical times Branch daily. traMADoL 50 2021- No [id number] 50mg Take 1 Uni vers mg tablet 03-26- tablet by ity of 00:00: 05:59 mouth [...] Sun Branch 12/03/20 at 1615, NOEL
[facility] : GREG PEACOCK [...] (scale 7-10). Indication s: acute pain traMADoL 2020-02- No [id number] 50mg Take 1 Univer s (ULTRAM) 50 0-24 08-31 tablet by it y of mg tablet 00:00: 00:00 mouth [place] 00 :00 every 6 Medical (six) Branch hours as needed for Pain (scale 7-10). Indication s: acute pain traMADoL 2020-02- No [id number] 50mg Take 1 Univer s (ULTRAM) 50 0-24 08-31 tablet by it y of mg tablet 00:00: 00:00 mouth [place] 00 :00 every 6 Medical [...] incidence of candidiasi s. Do not swallow. Armodafinil Armodafinil 2020- No 1{table QD Armodafini 250 MG 250 MG 10-26 t_in_th l 250 MG 00:00: 00:00 e_morni 00 :00 ng} Armodafinil Armodafinil 2020- No 1{table QD Armodafini 250 MG 250 MG 10-26 t_in_th l 250 MG 00:00: 00:00 e_morni 00 :00 ng} Armodafinil Armodafinil 2020- No 1{table QD Armodafini 250 MG 250 MG 10-26 t_in_th l 250 MG 00:00: 00:00 e_morni 00 :00 ng} armodafinil 2020- No 250mg QD Take 250 [facility] (NUVIGIL) -17 05-[address] 250 mg 16:54: 00:00 [facility] tablet [facility] :00 daily. l armodafiniL 2020- No [id number] 250mg QD Take 1 [facility] (NUVIGIL) 5-17 -[address] 250 mg 00:00: 05:59 (250 mg [facility] tablet 00 :00 total) by l mouth daily for 180 days. armodafiniL 2020- No [id number] 250mg QD Take 1 [facility] (NUVIGIL) 5-17 [...] tablet 00 each day. amitriptyli 2020- No [id number] 50mg QD Take 2 [facility] (ELAVIL) 5-14 11-[address] 25 MG 00:00: 05:59 (50 mg [facility] tablet 00 :00 total) by l mouth nightly for 180 days. amitriptyli 2020- No [id number] 50mg QD Take 2 [facility] (ELAVIL) 5-14 -[address] 25 MG 00:00: 05:59 (50 mg [facility] tablet 00 :00 total) by l mouth nightly for 180 days. carBAMazepi 2021- No [id number] 200mg Q.5D Take 1 [facility] -13 -[address] (TEGretoL) 00:00: 04:59 (200 mg Hos ileana 200 mg 00 :00 total) by l tablet mouth 2 (two) times a day. carBAMazepi 2021- No [id number] 200mg Q.5D Take 1 [facility] 5-[facility] -[address] (TEGretoL) 00:00: 04:59 (200 mg Hos ileana 200 mg 00 :00 total) by l tablet mouth 2 (two) times a day. Dexlansopra 2020- No 60mg Take 60 mg Univers zole 5-12 05-12 by mouth ity of (DEXILANT) 21:25: 00:[place]. [place] 60 mg 27 :00 Medical capsule Branch Dexlansopra 1- No 60mg Take 60 mg Univers zole [...] ity of 250 mg Tab 20:09: mouth [place] 27 daily. Medical Branch cycloSPORIN Yes 1[drp] Place 1 U nivers E 5-12 Drop in ity of (RESTASIS) 20:09: both eyes [place] 0.05 % 27 every 12 Medical drops (twelve) Branch hours. aspirin 81 Yes 81mg Take 81 mg U nivers mg chewable 5-12 by mouth ity of tablet 20:09: daily. [place] [address] Medical Branch atorvastati Yes 10mg Take 10 mg Univers n 10 mg 5-12 by mouth. ity of tablet 20:09: [place] [address] Medical Branch doxepin 10 2021-0 Yes 10mg Take 10 mg U nivers mg capsule 5-12 by mouth. ity of 20:09: [address] Branch insulin Yes 160U inject 160 Univ ers glargine 5-12 Units ity of U-300 conc 20:09: under the [place] (TOUJEO 27 skin. Medical SOLOSTAR Branch U-300 INSULIN) 300 unit/mL (1.5 mL) InPn lithium Yes 300mg Take 300 Unive rs carbonate 5-12 mg by ity of 300 mg 20:09: mouth. [place] [address] Medical Branch SERTraline Yes 50mg Take 50 mg U nivers 50 mg 5-12 by mouth. ity of tablet 20:09: [address] celecoxib Yes 200mg Take 200 Uni vers (CELEBREX) 5-12 mg by ity of 200 mg 20:09: mouth 2 [place] [address] (two) Medical times Branch daily. hydroxychlo Yes 200mg Take 200 U nivers roquine 200 5-12 mg by ity of mg tablet 20:09: mouth 2 [place] [address] (two) Medical times Branch daily. cyclobenzap Yes 10mg Take 10 mg Univers rine 10 mg 5-12 by mouth 3 ity of tablet 20:09: (three) [place] [address] times [facility] daily. Branch pilocarpine Yes 7.5mg Take 7.5 U nivers 7.5 mg 5-12 mg by ity of tablet 20:09: mouth 3 [place] [address] (three) Medical times Branch daily. Armodafinil Yes 250mg Take 250 U nivers (NUVIGIL) 5-12 mg by ity of 250 mg Tab 20:09: mouth [place] [address] daily. Medical Branch cycloSPORIN Yes 1[drp] Place 1 U nivers E 5-12 Drop in ity of (RESTASIS) 20:09: both eyes [place] 0.05 % 27 every 12 Medical drops (twelve) Branch hours. aspirin 81 0 Yes 81mg Take 81 mg U nivers mg chewable 5-12 by mouth ity of tablet 20:09: daily. [address] Branch atorvastati Yes 10mg Take 10 mg Univers n 10 mg 5-12 by mouth. ity of tablet 20:09: [address] Branch doxepin 10 Yes 10mg Take 10 mg U nivers mg capsule 5-12 by mouth. ity of 20:09: [address] insulin Yes 160U inject 160 Univ ers glargine 5-12 Units ity of U-300 conc 20:09: under the [place] (TOUJEO 27 skin. Medical SOLOSTAR Branch U-300 INSULIN) 300 unit/mL (1.5 mL) InPn lithium Yes 300mg Take 300 Unive rs carbonate 5-12 mg by ity of 300 mg 20:09: mouth. [place] [address] Medical Branch SERTraline Yes 50mg Take 50 mg U nivers 50 mg 5-12 by mouth. ity of tablet 20:09: [address] celecoxib Yes 200mg Take 200 Uni vers (CELEBREX) 5-12 mg by ity of 200 mg 20:09: mouth 2 [place] [address] (two) Medical times Branch daily. hydroxychlo Yes 200mg Take 200 U nivers roquine 200 5-12 mg by ity of mg tablet 20:09: mouth 2 [place] [address] (two) Medical times Branch daily. cyclobenzap Yes 10mg Take 10 mg Univers rine 10 mg 5-12 by mouth 3 ity of tablet 20:09: (three) [place] [address] times Medical daily. Branch pilocarpine Yes 7.5mg Take 7.5 U nivers 7.5 mg 5-12 mg by ity of tablet 20:09: mouth 3 [place] [address] (three) Medical times Branch daily. Armodafinil Yes 250mg Take 250 U nivers (NUVIGIL) 5-12 mg by ity of 250 mg Tab 20:09: mouth [place] [address] daily. Medical Branch cycloSPORIN Yes 1[drp] Place 1 U nivers E 5-12 Drop in ity of (RESTASIS) 20:09: both eyes [place] 0.05 % 27 every 12 Medical drops (twelve) Branch hours. aspirin 81 Yes 81mg Take 81 mg U nivers mg chewable 5-12 by mouth ity of tablet 20:09: daily. [place] [address] Medical Branch atorvastati Yes 10mg Take 10 mg Univers n 10 mg 5-12 by mouth. ity of tablet 20:09: [place] [address] Medical Branch doxepin 10 Yes 10mg Take 10 mg U nivers mg capsule 5-12 by mouth. ity of 20:09: [place] [address] Medical Branch insulin Yes 160U inject 160 Univ ers glargine 5-12 Units ity of U-300 conc 20:09: under the [place] (TOUJEO 27 skin. Medical SOLOSTAR Branch U-300 INSULIN) 300 unit/mL (1.5 mL) InPn lithium Yes 300mg Take 300 Unive rs carbonate 5-12 mg by ity of 300 mg 20:09: mouth. [place] [address] Medical Branch SERTraline Yes 50mg Take 50 mg U nivers 50 mg 5-12 by mouth. ity of tablet 20:09: [address] Branch celecoxib Yes 200mg Take 200 Uni vers (CELEBREX) 5-12 mg by ity of 200 mg 20:09: mouth 2 [place] [address] (two) Medical times Branch daily. hydroxychlo Yes 200mg Take 200 U nivers roquine 200 5-12 mg by ity of mg tablet 20:09: mouth 2 [place] [address] (two) Medical times Branch daily. cyclobenzap Yes 10mg Take 10 mg Univers rine 10 mg 5-12 by mouth 3 ity of tablet 20:09: (three) [place] [address] times Medical daily. Branch pilocarpine Yes 7.5mg Take 7.5 U nivers 7.5 mg 5-12 mg by ity of tablet 20:09: mouth 3 [place] [address] (three) Medical times Branch daily. Armodafinil Yes 250mg Take 250 U nivers (NUVIGIL) 5-12 mg by ity of 250 mg Tab 20:09: mouth [place] [address] daily. Medical Branch cycloSPORIN Yes 1[drp] Place 1 U nivers E 5-12 Drop in ity of (RESTASIS) 20:09: both eyes [place] 0.05 % 27 every 12 Medical drops (twelve) Branch hours. aspirin 81 Yes 81mg Take 81 mg U nivers mg chewable 5-12 by mouth ity of tablet 20:09: daily. [address] Branch atorvastati Yes 10mg Take 10 mg Univers n 10 mg 5-12 by mouth. ity of tablet 20:09: [address] Branch doxepin 10 Yes 10mg Take 10 mg U nivers mg capsule 5-12 by mouth. ity of 20:09: [address] Branch insulin Yes 160U inject 160 Univ ers glargine 5-12 Units ity of U-300 conc 20:09: under the [place] (TOUJEO skin. Medical SOLOSTAR Branch U-300 INSULIN) 300 unit/mL (1.5 mL) InPn lithium Yes 300mg Take 300 Unive rs carbonate 5-12 mg by ity of 300 mg 20:09: mouth. [place] [address] Medical Branch SERTraline Yes 50mg Take 50 mg U nivers 50 mg 5-12 by mouth. ity of tablet 20:09: [address] Branch celecoxib Yes 200mg Take 200 Uni vers (CELEBREX) 5-12 mg by ity of 200 mg 20:09: mouth 2 [place] capsule (two) Medical times Branch daily. hydroxychlo Yes 200mg Take 200 U nivers roquine 200 5-12 mg by ity of mg tablet 20:09: mouth 2 [place] [address] (two) Medical times Branch daily. cyclobenzap Yes 10mg Take 10 mg Univers rine 10 mg 5-12 by mouth 3 ity of tablet 20:09: (three) [place] [address] times Medical daily. Branch pilocarpine Yes 7.5mg Take 7.5 U nivers 7.5 mg 5-12 mg by ity of tablet 20:09: mouth 3 [place] [address] (three) Medical times Branch daily. Armodafinil Yes 250mg Take 250 U nivers (NUVIGIL) 5-12 mg by ity of 250 mg Tab 20:09: mouth [place] [address] daily. Medical Branch cycloSPORIN Yes 1[drp] Place 1 U nivers E 5-12 Drop in ity of (RESTASIS) 20:09: both eyes [place] 0.05 % 27 every 12 Medical drops (twelve) Branch hours. aspirin 81 Yes 81mg Take 81 mg U nivers mg chewable 5-12 by mouth ity of tablet 20:09: daily. [address] Branch atorvastati Yes 10mg Take 10 mg Univers n 10 mg 5-12 by mouth. ity of tablet 20:09: [address] Branch doxepin 10 Yes 10mg Take 10 mg U nivers mg capsule 5-12 by mouth. ity of 20:09: [address] insulin Yes 160U inject 160 Univ ers glargine 5-12 Units ity of U-300 conc 20:09: under the [place] ([facility] skin. Medical SOLOSTAR Branch U-300 INSULIN) 300 unit/mL (1.5 mL) InPn lithium Yes 300mg Take 300 Unive rs carbonate 5-12 mg by ity of 300 mg 20:09: mouth. [place] [address] Medical Branch SERTraline Yes 50mg Take 50 mg U nivers 50 mg 5-12 by mouth. ity of tablet 20:09: [address] celecoxib Yes 200mg Take 200 Uni vers (CELEBREX) 5-12 mg by ity of 200 mg 20:09: mouth 2 [place] [address] (two) Medical times Branch daily. hydroxychlo Yes 200mg Take 200 U nivers roquine 200 5-12 mg by ity of mg tablet 20:09: mouth 2 [place] [address] (two) Medical times [place] daily. cyclobenzap Yes 10mg Take 10 mg Univers rine 10 mg 5-12 by mouth 3 ity of tablet 20:09: (three) [place] [address] times Medical daily. Branch pilocarpine Yes 7.5mg Take 7.5 U nivers 7.5 mg 5-12 mg by ity of tablet 20:09: mouth 3 [place] [address] (three) Medical times Branch daily. Armodafinil Yes 250mg Take 250 U nivers (NUVIGIL) 5-12 mg by ity of 250 mg Tab 20:09: mouth [place] [address] daily. Medical Branch cycloSPORIN Yes 1[drp] Place 1 U nivers E 5-12 Drop in ity of (RESTASIS) 20:09: both eyes [place] 0.05 % 27 every 12 Medical drops (twelve) Branch hours. aspirin 81 0 Yes 81mg Take 81 mg U nivers mg chewable 5-12 by mouth ity of tablet 20:09: daily. [address] Branch atorvastati Yes 10mg Take 10 mg Univers n 10 mg 5-12 by mouth. ity of tablet 20:09: [address] Branch doxepin 10 Yes 10mg Take 10 mg U nivers mg capsule 5-12 by mouth. ity of 20:09: [address] Branch insulin Yes 160U inject 160 Univ ers glargine 5-12 Units ity of U-300 conc 20:09: under the [place] (TOUJEO 27 skin. Medical SOLOSTAR Branch U-300 INSULIN) 300 unit/mL (1.5 mL) InPn lithium Yes 300mg Take 300 Unive rs carbonate 5-12 mg by ity of 300 mg 20:09: mouth. [place] [address] Medical Branch SERTraline 0 Yes 50mg Take 50 mg U nivers 50 mg 5-12 by mouth. ity of tablet 20:09: [address] celecoxib Yes 200mg Take 200 Uni vers (CELEBREX) 5-12 mg by ity of 200 mg 20:09: mouth 2 [place] [address] (two) Medical times Branch daily. hydroxychlo 0 Yes 200mg Take 200 U nivers roquine 200 5-12 mg by ity of mg tablet 20:09: mouth 2 [place] [address] (two) Medical times Branch daily. cyclobenzap 0 Yes 10mg Take 10 mg Univers rine 10 mg 5-12 by mouth 3 ity of tablet 20:09: (three) [place] [address] times Medical daily. Branch pilocarpine 0 Yes 7.5mg Take 7.5 U nivers 7.5 mg 5-12 mg by ity of tablet 20:09: mouth 3 [place] [address] (three) Medical times Branch daily. exenatide 0 Yes 2mg inject 2 Univ ers microsphere [...] [place] tablet 56 bedtime. Medical Branch Milnacipran 2020-0 Yes 50mg Take 50 mg Univers (SAVELLA) 5-12 by mouth ity of 50 mg 15:10: at [place] tablet 56 bedtime. Medical Branch Milnacipran 2020-0 Yes 50mg Take 50 mg Univers (SAVELLA) 5-12 by mouth ity of 50 mg 15:10: at [place] tablet 56 bedtime. Medical Branch Milnacipran 2020-0 Yes 50mg Take 50 mg Univers (SAVELLA) 5-12 by mouth ity of 50 mg 15:10: at [place] tablet 56 bedtime. Medical Branch Milnacipran 2020-0 Yes 50mg Take 50 mg Univers (SAVELLA) 5-12 by mouth ity of 50 mg 15:10: at [place] tablet 56 bedtime. Medical Branch Milnacipran 2020-0 Yes 50mg Take 50 mg Univers (SAVELLA) 5-12 by mouth ity of 50 mg 15:10: at [place] tablet 56 bedtime. Medical Branch Milnacipran 2020-0 Yes 50mg Take 50 mg Univers (SAVELLA) 5-12 by mouth ity of 50 mg 15:10: at [place] tablet 56 bedtime. Medical Branch Milnacipran Yes 50mg Take 50 mg Univers (SAVELLA) 5-12 by mouth ity of 50 mg 15:10: at [place] tablet 56 bedtime. Medical Branch Milnacipran Yes 50mg Take 50 mg Univers (SAVELLA) 5-12 by mouth ity of 50 mg 15:10: at [place] tablet 56 bedtime. Medical Branch Milnacipran Yes 50mg Take 50 mg Univers (SAVELLA) 5-12 by mouth ity of 50 mg 15:10: at [place] tablet 56 bedtime. Medical Branch hydroxychlo Yes 200mg Take 200 U nivers roquine 200 5-12 mg by ity of mg tablet 15:09: mouth 2 [place] [address] (two) Medical times Branch daily. cyclobenzap Yes 10mg Take 10 mg Univers rine 10 mg 5-12 by mouth 3 ity of tablet 15:09: (three) [place] [address] times Medical daily. Branch pilocarpine Yes 7.5mg Take 7.5 U nivers 7.5 mg 5-12 mg by ity of tablet 15:09: mouth 3 [place] [address] (three) Medical times Branch daily. Armodafinil Yes 250mg Take 250 U nivers (NUVIGIL) 5-12 mg by ity of 250 mg Tab 15:09: mouth [place] [address] daily. Medical Branch cycloSPORIN Yes 1[drp] Place 1 U nivers E 5-12 Drop in ity of (RESTASIS) 15:09: both eyes [place] 0.05 % 27 every 12 Medical drops (twelve) Branch hours. aspirin 81 Yes 81mg Take 81 mg U nivers mg chewable 5-12 by mouth ity of tablet 15:09: daily. [place] [address] Medical Branch atorvastati Yes 10mg Take 10 mg Univers n 10 mg 5-12 by mouth. ity of tablet 15:09: [place] [address] Medical Branch doxepin 10 Yes 10mg Take 10 mg U nivers mg capsule 5-12 by mouth. ity of 15:09: [place] [address] Medical Branch insulin Yes 160U inject 160 Univ ers glargine 5-12 Units ity of U-300 conc 15:09: under the [place] ([place]OUJE[place] 27 skin. Medical SOLOSTAR Branch U-300 INSULIN) 300 unit/mL (1.5 mL) InPn lithium Yes 300mg Take 300 Unive rs carbonate 5-12 mg by ity of 300 mg 15:09: mouth. [place] [address] Medical Branch SERTraline Yes 50mg Take 50 mg U nivers 50 mg 5-12 by mouth. ity of tablet 15:09: [address] Branch celecoxib Yes 200mg Take 200 Uni vers (CELEBREX) 5-12 mg by ity of 200 mg 15:09: mouth 2 [place] [address] (two) Medical times Branch daily. hydroxychlo Yes 200mg Take 200 U nivers roquine 200 5-12 mg by ity of mg tablet 15:09: mouth 2 [place] [address] (two) Medical times [place] daily. cyclobenzap Yes 10mg Take 10 mg Univers rine 10 mg 5-12 by mouth 3 ity of tablet 15:09: (three) [place] [address] times Medical daily. Branch pilocarpine Yes 7.5mg Take 7.5 U nivers 7.5 mg 5-12 mg by ity of tablet 15:09: mouth 3 [place] [address] (three) Medical times Branch daily. Armodafinil Yes 250mg Take 250 U nivers (NUVIGIL) 5-12 mg by ity of 250 mg Tab 15:09: mouth [place] [address] daily. Medical Branch cycloSPORIN Yes 1[drp] Place 1 U nivers E 5-12 Drop in ity of (RESTASIS) 15:09: both eyes [place] 0.05 % 27 every 12 Medical drops (twelve) Branch hours. aspirin 81 Yes 81mg Take 81 mg U nivers mg chewable 5-12 by mouth ity of tablet 15:09: daily. [address] Branch atorvastati Yes 10mg Take 10 mg Univers n 10 mg 5-12 by mouth. ity of tablet 15:09: [address] Branch doxepin 10 Yes 10mg Take 10 mg U nivers mg capsule 5-12 by mouth. ity of 15:09: [address] insulin Yes 160U inject 160 Univ ers glargine 5-12 Units ity of U-300 conc 15:09: under the [place] (TOUJEO 27 skin. Medical SOLOSTAR Branch U-300 INSULIN) 300 unit/mL (1.5 mL) InPn lithium Yes 300mg Take 300 Unive rs carbonate 5-12 mg by ity of 300 mg 15:09: mouth. [place] [address] Medical Branch SERTraline Yes 50mg Take 50 mg U nivers 50 mg 5-12 by mouth. ity of tablet 15:09: [address] celecoxib Yes 200mg Take 200 Uni vers (CELEBREX) 5-12 mg by ity of 200 mg 15:09: mouth 2 [place] [address] (two) Medical times Branch daily. hydroxychlo Yes 200mg Take 200 U nivers roquine 200 5-12 mg by ity of mg tablet 15:09: mouth 2 [place] [address] (two) Medical times [place] daily. cyclobenzap Yes 10mg Take 10 mg Univers rine 10 mg 5-12 by mouth 3 ity of tablet 15:09: (three) [address] daily. Branch pilocarpine Yes 7.5mg Take 7.5 U nivers 7.5 mg 5-12 mg by ity of tablet 15:09: mouth 3 [place] [address] (three) Medical times [place] daily. Armodafinil Yes 250mg Take 250 U nivers (NUVIGIL) 5-12 mg by ity of 250 mg Tab 15:09: mouth [place] [address] daily. Medical Branch cycloSPORIN Yes 1[drp] Place 1 U nivers E 5-12 Drop in ity of (RESTASIS) 15:09: both eyes [place] 0.05 % 27 every 12 Medical drops (twelve) Branch hours. aspirin 81 0 Yes 81mg Take 81 mg U nivers mg chewable 5-12 by mouth ity of tablet 15:09: daily. [address] atorvastati Yes 10mg Take 10 mg Univers n 10 mg 5-12 by mouth. ity of tablet 15:09: [address] doxepin 10 Yes 10mg Take 10 mg U nivers mg capsule 5-12 by mouth. ity of 15:09: [address] insulin Yes 160U inject 160 Univ ers glargine 5-12 Units ity of U-300 conc 15:09: under the [place] (TOUJEO 27 skin. Medical SOLOSTAR Branch U-300 INSULIN) 300 unit/mL (1.5 mL) InPn lithium Yes 300mg Take 300 Unive rs carbonate 5-12 mg by ity of 300 mg 15:09: mouth. [place] [address] Medical Branch SERTraline Yes 50mg Take 50 mg U nivers 50 mg 5-12 by mouth. ity of tablet 15:09: [address] celecoxib Yes 200mg Take 200 Uni vers (CELEBREX) 5-12 mg by ity of 200 mg 15:09: mouth 2 [place] [address] (two) Medical times Branch daily. hydroxychlo Yes 200mg Take 200 U nivers roquine 200 5-12 mg by ity of mg tablet 15:09: mouth 2 [place] [address] (two) Medical times Branch daily. cyclobenzap Yes 10mg Take 10 mg Univers rine 10 mg 5-12 by mouth 3 ity of tablet 15:09: (three) [place] [address] times [facility] daily. Branch pilocarpine Yes 7.5mg Take 7.5 U nivers 7.5 mg 5-12 mg by ity of tablet 15:09: mouth 3 [place] [address] (three) Medical times Branch daily. Armodafinil Yes 250mg Take 250 U nivers (NUVIGIL) 5-12 mg by ity of 250 mg Tab 15:09: mouth [place] [address] daily. Medical Branch cycloSPORIN Yes 1[drp] Place 1 U nivers E 5-12 Drop in ity of (RESTASIS) 15:09: both eyes [place] 0.05 % 27 every 12 Medical drops (twelve) Branch hours. aspirin 81 0 Yes 81mg Take 81 mg U nivers mg chewable 5-12 by mouth ity of tablet 15:09: daily. [address] atorvastati Yes 10mg Take 10 mg Univers n 10 mg 5-12 by mouth. ity of tablet 15:09: [address] Branch doxepin 10 Yes 10mg Take 10 mg U nivers mg capsule 5-12 by mouth. ity of 15:09: [address] insulin Yes 160U inject 160 Univ ers glargine 5-12 Units ity of U-300 conc 15:09: under the [place] (TOUJEO 27 skin. Medical SOLOSTAR Branch U-300 INSULIN) 300 unit/mL (1.5 mL) InPn lithium Yes 300mg Take 300 Unive rs carbonate 5-12 mg by ity of 300 mg 15:09: mouth. [place] [address] Medical Branch SERTraline Yes 50mg Take 50 mg U nivers 50 mg 5-12 by mouth. ity of tablet 15:09: [address] celecoxib Yes 200mg Take 200 Uni vers (CELEBREX) 5-12 mg by ity of 200 mg 15:09: mouth 2 [place] [address] (two) Medical times Branch daily. hydroxychlo Yes 200mg Take 200 U nivers roquine 200 5-12 mg by ity of mg tablet 15:09: mouth 2 [place] [address] (two) Medical times Branch daily. cyclobenzap Yes 10mg Take 10 mg Univers rine 10 mg 5-12 by mouth 3 ity of tablet 15:09: (three) [place] [address] times Medical daily. Branch pilocarpine Yes 7.5mg Take 7.5 U nivers 7.5 mg 5-12 mg by ity of tablet 15:09: mouth 3 [place] [address] (three) Medical times Branch daily. Armodafinil Yes 250mg Take 250 U nivers (NUVIGIL) 5-12 mg by ity of 250 mg Tab 15:09: mouth [place] [address] daily. Medical Branch cycloSPORIN Yes 1[drp] Place 1 U nivers E 5-12 Drop in ity of (RESTASIS) 15:09: both eyes [place] 0.05 % 27 every 12 Medical drops (twelve) Branch hours. aspirin 81 0 Yes 81mg Take 81 mg U nivers mg chewable 5-12 by mouth ity of tablet 15:09: daily. [address] Branch atorvastati Yes 10mg Take 10 mg Univers n 10 mg 5-12 by mouth. ity of tablet 15:09: [address] doxepin 10 Yes 10mg Take 10 mg U nivers mg capsule 5-12 by mouth. ity of 15:09: [address] Branch insulin Yes 160U inject 160 Univ ers glargine 5-12 Units ity of U-300 conc 15:09: under the [place] (TOUJEO 27 skin. Medical SOLOSTAR Branch U-300 INSULIN) 300 unit/mL (1.5 mL) InPn lithium Yes 300mg Take 300 Unive rs carbonate 5-12 mg by ity of 300 mg 15:09: mouth. [place] [address] Medical Branch SERTraline Yes 50mg Take 50 mg U nivers 50 mg 5-12 by mouth. ity of tablet 15:09: [address] celecoxib Yes 200mg Take 200 Uni vers (CELEBREX) 5-12 mg by ity of 200 mg 15:09: mouth 2 [place] [address] (two) Medical times Branch daily. hydroxychlo Yes 200mg Take 200 U nivers roquine 200 5-12 mg by ity of mg tablet 15:09: mouth 2 [place] [address] (two) Medical times Branch daily. cyclobenzap Yes 10mg Take 10 mg Univers rine 10 mg 5-12 by mouth 3 ity of tablet 15:09: (three) [place] [address] times Medical daily. Branch pilocarpine Yes 7.5mg Take 7.5 U nivers 7.5 mg 5-12 mg by ity of tablet 15:09: mouth 3 [place] [address] (three) Medical times Branch daily. Armodafinil Yes 250mg Take 250 U nivers (NUVIGIL) 5-12 mg by ity of 250 mg Tab 15:09: mouth [place] [address] daily. Medical Branch cycloSPORIN Yes 1[drp] Place 1 U nivers E 5-12 Drop in ity of (RESTASIS) 15:09: both eyes [place] 0.05 % 27 every 12 Medical drops (twelve) Branch hours. aspirin 81 Yes 81mg Take 81 mg U nivers mg chewable 5-12 by mouth ity of tablet 15:09: daily. [address] atorvastati Yes 10mg Take 10 mg Univers n 10 mg 5-12 by mouth. ity of tablet 15:09: [address] doxepin 10 Yes 10mg Take 10 mg U nivers mg capsule 5-12 by mouth. ity of 15:09: [address] insulin Yes 160U inject 160 Univ ers glargine 5-12 Units ity of U-300 conc 15:09: under the [place] ([place] skin. [facility] SOLOSTAR Branch U-300 INSULIN) 300 unit/mL (1.5 mL) InPn lithium Yes 300mg Take 300 Unive rs carbonate 5-12 mg by ity of 300 mg 15:09: mouth. [address] SERTraline Yes 50mg Take 50 mg U nivers 50 mg 5-12 by mouth. ity of tablet 15:09: [address] celecoxib Yes 200mg Take 200 Uni vers (CELEBREX) 5-12 mg by ity of 200 mg 15:09: mouth 2 [place] [address] (two) Medical [facility] daily. hydroxychlo Yes 200mg Take 200 U nivers roquine 200 5-12 mg by ity of mg tablet 15:09: mouth 2 [place] [address] (two) [facility] daily. cyclobenzap Yes 10mg Take 10 mg Univers rine 10 mg 5-12 by mouth 3 ity of tablet 15:09: (three) [place] [address] times [facility] daily. Branch pilocarpine Yes 7.5mg Take 7.5 U nivers 7.5 mg 5-12 mg by ity of tablet 15:09: mouth 3 [place] [address] (three) Medical [facility] daily. Armodafinil Yes 250mg Take 250 U nivers (NUVIGIL) 5-12 mg by ity of 250 mg Tab 15:09: mouth [place] [address] daily. Medical Branch cycloSPORIN Yes 1[drp] Place 1 U nivers E 5-12 Drop in ity of (RESTASIS) 15:09: both eyes [place] 0.05 % 27 every 12 Medical drops (twelve) Branch hours. aspirin 81 Yes 81mg Take 81 mg U nivers mg chewable 5-12 by mouth ity of tablet 15:09: daily. [address] Branch atorvastati Yes 10mg Take 10 mg Univers n 10 mg 5-12 by mouth. ity of tablet 15:09: [address] doxepin 10 Yes 10mg Take 10 mg U nivers mg capsule 5-12 by mouth. ity of 15:09: [address] insulin Yes 160U inject 160 Univ ers glargine 5-12 Units ity of U-300 conc 15:09: under the [place] ([facility] skin. Medical SOLOSTAR Branch U-300 INSULIN) 300 unit/mL (1.5 mL) InPn lithium Yes 300mg Take 300 Unive rs carbonate 5-12 mg by ity of 300 mg 15:09: mouth. [place] [address] Medical Branch SERTraline Yes 50mg Take 50 mg U nivers 50 mg 5-12 by mouth. ity of tablet 15:09: [address] celecoxib Yes 200mg Take 200 Uni vers (CELEBREX) 5-12 mg by ity of 200 mg 15:09: mouth 2 [place] [address] (two) Medical times Branch daily. hydroxychlo Yes 200mg Take 200 U nivers roquine 200 5-12 mg by ity of mg tablet 15:09: mouth 2 [place] [address] (two) Medical times Branch daily. cyclobenzap Yes 10mg Take 10 mg Univers rine 10 mg 5-12 by mouth 3 ity of tablet 15:09: (three) [place] [address] times Medical daily. Branch pilocarpine Yes 7.5mg Take 7.5 U nivers 7.5 mg 5-12 mg by ity of tablet 15:09: mouth 3 [place] [address] (three) Medical times Branch daily. Armodafinil Yes 250mg Take 250 U nivers (NUVIGIL) 5-12 mg by ity of 250 mg Tab 15:09: mouth [place] [address] daily. Medical Branch cycloSPORIN Yes 1[drp] Place 1 U nivers E 5-12 Drop in ity of (RESTASIS) 15:09: both eyes [place] 0.05 % 27 every 12 Medical drops (twelve) Branch hours. aspirin 81 2020-0 Yes 81mg Take 81 mg U nivers mg chewable 5-12 by mouth ity of tablet 15:09: daily. [address] atorvastati 2020-0 Yes 10mg Take 10 mg Univers n 10 mg 5-12 by mouth. ity of tablet 15:09: [address] doxepin 10 0 Yes 10mg Take 10 mg U nivers mg capsule 5-12 by mouth. ity of 15:09: [address] insulin 0 Yes 160U inject 160 Univ ers glargine 5-12 Units ity of U-300 conc 15:09: under the [place] ([place] 27 skin. Medical SOLOSTAR Branch U-300 INSULIN) 300 unit/mL (1.5 mL) InPn lithium Yes 300mg Take 300 Unive rs carbonate 5-12 mg by ity of 300 mg 15:09: mouth. [place] [address] Medical Branch SERTraline 0 Yes 50mg Take 50 mg U nivers 50 mg 5-12 by mouth. ity of tablet 15:09: [address] celecoxib 2020-0 Yes 200mg Take 200 Uni vers (CELEBREX) 5-12 mg by ity of 200 mg 15:09: mouth 2 [place] capsule 27 (two) Medical times [place] daily. hydroxychlo 2020-0 Yes 200mg Take 200 U nivers roquine 200 5-12 mg by ity of mg tablet 15:09: mouth 2 [place] [address] (two) Medical times Branch daily. cyclobenzap 2020-0 Yes 10mg Take 10 mg Univers rine 10 mg 5-12 by mouth 3 ity of tablet 15:09: (three) [place] [address] times [facility] daily. Branch pilocarpine 0 Yes 7.5mg Take 7.5 U nivers 7.5 mg 5-12 mg by ity of tablet 15:09: mouth 3 [place] [address] (three) Medical times [place] daily. Armodafinil 2020-0 Yes 250mg Take 250 U nivers (NUVIGIL) 5-12 mg by ity of 250 mg Tab 15:09: mouth [place] [address] daily. Medical Branch cycloSPORIN Yes 1[drp] Place 1 U nivers E 5-12 Drop in ity of (RESTASIS) 15:09: both eyes [place] 0.05 % 27 every 12 Medical drops (twelve) Branch hours. aspirin 81 Yes 81mg Take 81 mg U nivers mg chewable 5-12 by mouth ity of tablet 15:09: daily. [address] atorvastati Yes 10mg Take 10 mg Univers n 10 mg 5-12 by mouth. ity of tablet 15:09: [address] doxepin 10 Yes 10mg Take 10 mg U nivers mg capsule 5-12 by mouth. ity of 15:09: [address] insulin Yes 160U inject 160 Univ ers glargine 5-12 Units ity of U-300 conc 15:09: under the [place] ([place] 27 skin. Medical SOLOSTAR Branch U-300 INSULIN) 300 unit/mL (1.5 mL) InPn lithium Yes 300mg Take 300 Unive rs carbonate 5-12 mg by ity of 300 mg 15:09: mouth. [address] SERTraline Yes 50mg Take 50 mg U nivers 50 mg 5-12 by mouth. ity of tablet 15:09: [address] atorvastati Yes 10mg Take 10 mg Univers n 10 mg 5-12 by mouth. ity of tablet 15:09: [address] atorvastati Yes 10mg Take 10 mg Univers n 10 mg 5-12 by mouth. ity of tablet 15:09: [address] atorvastati Yes 10mg Take 10 mg Univers n 10 mg 5-12 by mouth. ity of tablet 15:09: [address] celecoxib Yes 200mg Take 200 Uni vers (CELEBREX) 5-12 mg by ity of 200 mg 15:09: mouth 2 [place] [address] (two) Medical times Branch daily. hydroxychlo Yes 200mg Take 200 U nivers roquine 200 5-12 mg by ity of mg tablet 15:09: mouth 2 [place] [address] (two) Medical times Branch daily. cyclobenzap Yes 10mg Take 10 mg Univers rine 10 mg 5-12 by mouth 3 ity of tablet 15:09: (three) [place] [address] times [facility] daily. Branch pilocarpine Yes 7.5mg Take 7.5 U nivers 7.5 mg 5-12 mg by ity of tablet 15:09: mouth 3 [place] [address] (three) Medical times [place] daily. Armodafinil Yes 250mg Take 250 U nivers (NUVIGIL) 5-12 mg by ity of 250 mg Tab 15:09: mouth [place] [address] daily. Medical Branch cycloSPORIN Yes 1[drp] Place 1 U nivers E 5-12 Drop in ity of (RESTASIS) 15:09: both eyes [place] 0.05 % 27 every 12 Medical drops (twelve) Branch hours. aspirin 81 Yes 81mg Take 81 mg U nivers mg chewable 5-12 by mouth ity of tablet 15:09: daily. [address] atorvastati Yes 10mg Take 10 mg Univers n 10 mg 5-12 by mouth. ity of tablet 15:09: [address] doxepin 10 Yes 10mg Take 10 mg U nivers mg capsule 5-12 by mouth. ity of 15:09: [address] insulin Yes 160U inject 160 Univ ers glargine 5-12 Units ity of U-300 conc 15:09: under the [place] ([place]JE[place] 27 skin. Medical SOLOSTAR Branch U-300 INSULIN) 300 unit/mL (1.5 mL) InPn lithium Yes 300mg Take 300 Unive rs carbonate 5-12 mg by ity of 300 mg 15:09: mouth. [address] SERTraline Yes 50mg Take 50 mg U nivers 50 mg 5-12 by mouth. ity of tablet 15:09: [address] celecoxib Yes 200mg Take 200 Uni vers (CELEBREX) 5-12 mg by ity of 200 mg 15:09: mouth 2 [place] capsule (two) Medical times [place] daily. exenatide Yes 2mg inject 2 Univ ers [...] exas mL 40 Medical injection Branch oxybutynin 1-0 Yes [id number] 5mg Take 1 U nivers XL 5 mg 24 5-12 tablet by ity of hr tablet 00:00: mouth [place] 00 daily. Medical Branch oxybutynin 1-0 Yes [id number] 5mg Take 1 U nivers XL 5 mg 24 5-12 tablet by ity of hr tablet 00:00: mouth [place] 00 daily. Medical Branch oxybutynin 2020-0 Yes [id number] 5mg Take 1 U nivers XL 5 mg 24 5-12 tablet by ity of hr tablet 00:00: mouth [place] 00 daily. Medical Branch oxybutynin 2020-0 Yes [id number] 5mg Take 1 U nivers XL 5 mg 24 5-12 tablet by ity of hr tablet 00:00: mouth [place] 00 daily. Medical Branch oxybutynin 2020-0 Yes [id number] 5mg Take 1 U nivers XL 5 mg 24 5-12 tablet by ity of hr tablet 00:00: mouth [place] 00 daily. Medical Branch oxybutynin 2020-0 Yes [id number] 5mg Take 1 U nivers XL 5 mg 24 5-12 tablet by ity of hr tablet 00:00: mouth [place] 00 daily. Medical Branch oxybutynin 2020-0 Yes [id number] 5mg Take 1 U nivers XL 5 mg 24 5-12 tablet by ity of hr tablet 00:00: mouth [place] 00 daily. Medical Branch oxybutynin 2020-0 Yes [id number] 5mg Take 1 U nivers XL 5 mg 24 5-12 tablet by ity of hr tablet 00:00: mouth [place] 00 daily. Medical Branch oxybutynin 2020-0 Yes [id number] 5mg Take 1 U nivers XL 5 mg 24 5-12 tablet by ity of hr tablet 00:00: mouth [place] 00 daily. Medical Branch oxybutynin 2020-0 Yes [id number] 5mg Take 1 U nivers XL 5 mg 24 5-12 tablet by ity of hr tablet 00:00: mouth [place] 00 daily. Medical Branch oxybutynin 2020-0 Yes [id number] 5mg Take 1 U nivers XL 5 mg 24 5-12 tablet by ity of hr tablet 00:00: mouth [place] 00 daily. Medical Branch oxybutynin 2020-0 Yes [id number] 5mg Take 1 U nivers XL 5 mg 24 5-12 tablet by ity of hr tablet 00:00: mouth [place] 00 daily. Medical Branch oxybutynin 2020-0 Yes [id number] 5mg Take 1 U nivers XL 5 mg 24 5-12 tablet by ity of hr tablet 00:00: mouth [place] 00 daily. [facility] oxybutynin 0 Yes [id number] 5mg Take 1 U nivers XL 5 mg 24 5-12 tablet by ity of hr tablet 00:00: mouth [place] 00 daily. [facility] oxybutynin Yes [id number] 5mg Take 1 U nivers XL 5 mg 24 5-12 tablet by ity of hr tablet 00:00: mouth [place] 00 daily. [facility] oxybutynin Yes [id number] 5mg Take 1 U nivers XL 5 mg 24 5-12 tablet by ity of hr tablet 00:00: mouth [place] 00 daily. [facility] armodafinil Yes 250mg QD Take 250 U T (Nuvigil) 5-12 mg by Health 250 MG 00:00: mouth 1 tablet 00 (one) time each day. aspirin 81 Yes 81mg Chew 81 [facility] MG chewable 5-12 mg. Health tablet 00:00: 00 armodafinil 2020-0 Yes 250mg QD Take 250 U T (Nuvigil) 5-12 mg by Health 250 MG 00:00: mouth 1 tablet 00 (one) time each day. aspirin 81 2020-0 Yes 81mg Chew 81 [facility] MG chewable 5-12 mg. Health tablet 00:00: 00 oxybutynin 2020-0 2021- No [id number] 5mg Take 1 Univers XL 5 mg 24 5-12 -31 tablet by ity of hr tablet 00:00: 00:00 mouth [place] 00 :00 daily. [facility] oxybutynin 0 2021- No [id number] 5mg Take 1 Univers XL 5 mg 24 5-12 08-31 tablet by ity of hr tablet 00:00: 00:00 mouth [place] 00 :00 daily. [facility] metformin 2020-0 Yes Univers ER 500 mg 5-10 ity of 24 hr 00:00: [place] tablet 00 [facility] metformin 2020-0 Yes Univers ER 500 mg 5-10 ity of 24 hr 00:00: [place] tablet 00 [facility] metformin 2020-0 Yes Univers ER 500 mg [...] of 24 hr 00:00: [place] tablet 00 [facility] Branch metformin 2021-0 Yes Univers ER 500 mg 5-10 ity of 24 hr 00:00: [place] tablet 00 [facility] metformin 2021-0 Yes Univers ER 500 mg 5-10 ity of 24 hr 00:00: [place] tablet 00 [facility] Branch metformin 2021-0 Yes Univers ER 500 mg 5-10 ity of 24 hr 00:00: [place] tablet 00 [facility] metformin 2021-0 Yes Univers ER 500 mg 5-10 ity of 24 hr 00:00: [place] tablet 00 Medical Branch metformin 2021-0 Yes Univers ER 500 mg 5-10 ity of 24 hr 00:00: [place] tablet 00 [facility] metformin 2021-0 Yes Univers ER 500 mg 5-10 ity of 24 hr 00:00: [place] tablet 00 [facility] metformin 2021-0 Yes Univers ER 500 mg 5-10 ity of 24 hr 00:00: [place] tablet 00 [facility] metformin 2021-0 2022- No Univers ER 500 mg 5-10 08-31 ity of 24 hr 00:00: 00:00 [place] tablet 00 :00 [facility] metformin 2021-0 2022- No Univers ER 500 mg 5-10 08-31 ity of 24 hr 00:00: 00:00 [place] tablet 00 :00 [facility] gabapentin 2021-0 Yes Univers 300 mg 4-23 ity of capsule 00:00: [place] [facility] gabapentin 2021-0 Yes Univers 300 mg 4-23 ity of capsule 00:00: [facility] gabapentin 2021-0 Yes Univers 300 mg 4-23 ity of capsule 00:00: Medical Branch gabapentin 2021-0 Yes Univers 300 mg 4-23 ity of capsule 00:00: [place] 00 Medical Branch gabapentin 2021-0 Yes Univers 300 mg 4-23 ity of capsule 00:00: [place] 00 Medical Branch gabapentin 2021-0 Yes Univers 300 mg 4-23 ity of capsule 00:00: [place] 00 Medical Branch gabapentin 2021-0 Yes Univers 300 mg 4-23 ity of capsule 00:00: [place] [address] Medical Branch gabapentin 2021-0 Yes Univers 300 mg 4-23 ity of capsule 00:00: [place] [address] Medical Branch gabapentin 2021-0 Yes Univers 300 mg 4-23 ity of capsule 00:00: [place] [address] Medical Branch gabapentin 2021-0 Yes Univers 300 mg 4-23 ity of capsule 00:00: [place] [address] Medical Branch gabapentin 2021-0 Yes Univers 300 mg 4-23 ity of capsule 00:00: [place] [address] Medical Branch gabapentin 2021-0 Yes Univers 300 mg 4-23 ity of capsule 00:00: [place] [address] Medical Branch gabapentin 2021-0 Yes Univers 300 mg 4-23 ity of capsule 00:00: [place] [address] Medical Branch gabapentin 2021-0 Yes Univers 300 mg 4-23 ity of capsule 00:00: [place] [address] Medical Branch gabapentin 2021-0 Yes Univers 300 mg 4-23 ity of capsule 00:00: [place] [address] Medical Branch gabapentin 2021-0 Yes Univers 300 mg 4-23 ity of capsule 00:00: [place] [address] Medical Branch gabapentin 2021-0 2022- No Univer s 300 mg 4-23 08-31 ity of capsule 00:00: 00:00 [place] 00 :00 Medical Branch gabapentin 2021-0 2022- No Univer s 300 mg 4-23 08-31 ity of capsule 00:00: 00:00 [place] 00 :00 Medical Branch lisinopriL- 2021-0 Yes Univer s hydrochloro 4-07 ity of thiazide 00:00: [place] 20-12.5 mg 00 Medical per tablet Branch lisinopriL- 2021-0 Yes Univer s hydrochloro 4-07 ity of thiazide 00:00: [place] 20-12.5 mg 00 Medical per tablet Branch lisinopriL- 2021-0 Yes Univer s hydrochloro 4-07 ity of thiazide 00:00: [place] 20-12.5 mg 00 Medical per tablet Branch lisinopriL- 2021-0 Yes [facility] s hydrochloro 4-07 ity of thiazide 00:00: [place] 20-12.5 mg 00 Medical per tablet Branch lisinopriL- Yes [facility] s hydrochloro 4-07 ity of thiazide 00:00: [place] 20-12.5 mg 00 Medical per tablet Branch lisinopriL- 0 Yes [facility] s hydrochloro 4-07 ity of thiazide 00:00: [place] 20-12.5 mg 00 Medical per tablet Branch lisinopriL- Yes [facility] s hydrochloro 4-07 ity of thiazide 00:00: [place] 20-12.5 mg 00 Medical per tablet Branch lisinopriL- Yes [facility] s hydrochloro 4-07 ity of thiazide 00:00: [place] 20-12.5 mg 00 Medical per tablet Branch lisinopriL- Yes [facility] s hydrochloro 4-07 ity of thiazide 00:00: [place] 20-12.5 mg 00 Medical per tablet Branch lisinopriL- Yes [facility] s hydrochloro 4-07 ity of thiazide 00:00: [place] 20-12.5 mg 00 Medical per tablet Branch lisinopriL- Yes [facility] s hydrochloro 4-07 ity of thiazide 00:00: [place] 20-12.5 mg 00 Medical per tablet Branch lisinopriL- Yes [facility] s hydrochloro 4-07 ity of thiazide 00:00: [place] 20-12.5 mg 00 Medical per tablet Branch lisinopriL- Yes [facility] s hydrochloro 4-07 ity of thiazide 00:00: [place] 20-12.5 mg 00 Medical per tablet Branch lisinopriL- Yes [facility] s hydrochloro 4-07 ity of thiazide 00:00: [place] 20-12.5 mg 00 Medical per tablet Branch lisinopriL- 0 Yes [facility] s hydrochloro 4-07 ity of thiazide 00:00: [place] 20-12.5 mg 00 Medical per tablet Branch lisinopriL- 0 Yes [place] [facility] hydrochloro 4-07 ity of thiazide 00:00: [place] 20-12.5 mg 00 Medical per tablet Branch lisinopriL- 0 Yes [facility] s hydrochloro 4-07 ity of thiazide 00:00: [place] 20-12.5 mg 00 Medical per tablet Branch lisinopriL- 2020-0 Yes [place] [facility] hydrochloro 4-07 ity of thiazide 00:00: [place] 20-12.5 mg 00 Medical per tablet Branch lisinopriL- Yes [place] [facility] hydrochloro 4-07 ity of thiazide 00:00: [place] 20-12.5 mg 00 Medical per tablet Branch thiamine 2020-0 2020- No 50mg QD Take 0.5 Meth gwen mononitrate 3-27 04-[address] , vit B1, 00:00: 04:59 (50 mg Hospi ta (B-1) 100 00 :00 total) by l mg tablet mouth daily for 30 days. cyclobenzap 2020- No 10mg Q.[id number] Take 10 mg Methodi rine 3-26 03-26 [id number] mouth [address] (FLEXERIL) 21:43: 00:00 3D (three) Hos ileana 10 MG 22 :00 times a l tablet day. celecoxib Yes 200mg Q.5D Take 200 Met [facility] (CeleBREX) 3-[address] 200 MG 21:43: mouth 2 Hospita capsule 19 (two) l times a day. hydroxychlo 0 Yes Q.5D Take by Met hodi roquine 3-[address] (PLAQUENIL) 21:43: (two) Hospi ta 200 mg 19 times a l tablet day. PILOCARPINE 0 Yes 7.5mg Q.[id number] Take 7.5 [facility]i HCL ORAL 3-[id number] 21:43: 3D mouth 3 [...] QD Take 81 mg Meth gwen (ECOTRIN) -[address] 81 MG 21:43: daily. [...] QD Take 10 mg Meth gwen (SINEquan) -[address] 10 MG 21:43: nightly. Hospita capsule 19 l leflunomide Yes 20mg QD Take 20 mg [facility]i (ARAVA) 20 -[address] MG tablet 21:43: nightly. Hosp ruiz 19 l atorvastati Yes 10mg QD Take 10 mg Methodi n (LIPITOR) -[address] 10 mg 21:43: nightly. Hospita tablet 19 l lithium 300 0 Yes 300mg Q.[id number] Take 300 [facility]i MG capsule -[id number] 21:43: 3D mouth 3 [...] 0 Yes Q30D Infuse Method i (SIMPONI - into a st ARIA IV) 21:43: venous Hospita 19 catheter l every 30 (thirty) days. insulin 2021-0 Yes 22U [id number] Inject 22 Methodi lispro 3-[id number] (HUMALOG 21:43: 3D under the [...] 300 unit/mL (1.5 mL) insulin pen celecoxib Yes 200mg Q.5D Take 200 [facility] (CeleBREX) 3-[address] 200 MG 16:43: mouth 2 Hospita capsule 19 (two) l times a day. hydroxychlo 0 Yes Q.5D Take by Met hodi roquine 3-[address] (PLAQUENIL) 16:43: (two) Hospi ta 200 mg 19 times a l tablet day. PILOCARPINE Yes 7.5mg Q.[id number] Take 7.5 [facility]i HCL ORAL 3-[id number] 16:43: 3D mouth 3 Hospita 19 (three) l times a day. LISINOPRIL- Yes 2{tbl} QD Take 2 Me thodi HCTZ 3-[address] 20-12.5 MG 16:43: mouth Hospit a COMBO DOSE 19 daily. l exenatide Yes 2mg Q1W Inject 2 Meth gwen microsphere 3-[address] s 16:43: the skin Hospita (BYDUREON) 19 every 7 l 2 mg/0.65 days. mL pen injector aspirin Yes 81mg QD Take 81 mg Meth gwen (ECOTRIN) 3-[address] 81 MG 16:43: daily. Hospita enteric 19 l coated tablet ALPRAZolam Yes .5mg Q.5D Take 0.5 Met hodi (NIRAVAM) 3-[address] 0.5 MG 16:43: mouth 2 Hospita disintegrat 19 (two) l ing tablet times a day as needed for anxiety. cycloSPORIN 0 Yes 1[drp] Q.5D Administer Methodi E 3-[address] (RESTASIS) 16:43: both eyes Ho spita 0.05 % 19 2 (two) l ophthalmic times a emulsion day. doxepin Yes 10mg QD Take 10 mg Meth gwen (SINEquan) 3-[address] 10 MG 16:43: nightly. Hospita capsule 19 l leflunomide 0 Yes 20mg QD Take 20 mg Methodi (ARAVA) 20 3-[address] MG tablet 16:43: nightly. Hosp ruiz 19 l atorvastati 0 Yes 10mg QD Take 10 mg Methodi n (LIPITOR) -[address] 10 mg 16:43: nightly. Hospita tablet 19 l lithium 300 0 Yes 300mg Q.[id number] Take 300 [facility]i MG capsule 3- [id number] mg by st 16:43: 3D mouth 3 Hospita 19 (three) l times a day with meals. metFORMIN 0 Yes 1000mg Q.5D Take 1,000 [facility]i XR 3-[address] (GLUCOPHAGE 16:43: mouth 2 Hos ileana -XR) 500 mg 19 (two) l 24 hr times a tablet day with meals. sertraline Yes 50mg QD Take 50 mg M ethodi (ZOLOFT) 50 3-[address] MG tablet 16:43: daily. Hospit a 19 l golimumab 0 Yes Q30D Infuse Method i (SIMPONI 3-[address] ARIA IV) 16:43: venous Hospita 19 catheter l every 30 (thirty) days. insulin 0 Yes 22U Q.[id number] Inject 22 [facility]i lispro 3-[id number] (HUMALOG 16:43: 3D under the Hosp ruiz KWIKPEN 19 skin 3 l INSULIN (three) SUBQ) times a day with meals. insulin Yes 11U QD Inject 11 Metho di lispro 3-[address] (HUMALOG 16:43: under the Hosp ruiz KWIKPEN 19 skin l INSULIN nightly. SUBQ) insulin Yes 160U QD Inject 160 Meth gwen GLARGINE 3-[address] ([place]jeo 16:43: under the Hospi ta [facility] 19 skin every l U-300 evening. Insulin) 300 unit/mL (1.5 mL) insulin pen cycloSPORIN Yes 1 drop [facility] E 05-05 [...] 2020- No 2mg QD Take 2 mg M [...] 50 :00 daily. l capsule capsule clopidogrel No 75mg QD Take 75 mg Methodi [...] 00:00 daily. Hospita tablet 49 :00 l Kenalog Kenalog 2020-0 No 40mg Common (Triamcinol (Triamcinol 9-22 S pirit one) one) 00:00: - [facility] Kenalog Kenalog 2020-0 No 40mg Common (Triamcinol (Triamcinol 9-22 S pirit one) one) 00:00: - [facility] Kenalog Kenalog 2020-0 No 40mg Common (Triamcinol (Triamcinol 9-22 S pirit one) one) 00:00: - [facility] Kenalog Kenalog 2020-0 No 40mg Common (Triamcinol (Triamcinol 9-22 S pirit one) one) 00:00: - [facility] Kenalog Kenalog 2020-0 No 40mg Common (Triamcinol (Triamcinol 9-22 S pirit one) one) 00:00: - [facility] 00 [facility] Kenalog Kenalog 2020-0 No 40mg Common (Triamcinol (Triamcinol 9-22 S pirit one) one) 00:00: - [facility] 00 [facility] Kenalog Kenalog 2020-0 No 40mg Common (Triamcinol (Triamcinol 9-22 S pirit one) one) 00:00: - [facility] 00 [facility] Kenalog Kenalog 2020-0 No 40mg Common (Triamcinol (Triamcinol 9-22 S pirit one) one) 00:00: - [facility] 00 [facility] Amoxicillin Amoxicillin 2020-0 2020- No [facility] 1 capsule Common 10-26 [facility] 00:00: 00:00 [facility] :00 [facility] atorvastati 2020-0 Yes 1 tablet [facility] n (Lipitor) 8-20 Health 10 MG 00:00: tablet 00 atorvastati 2020-0 Yes 1 tablet [facility] n (Lipitor) 8-20 Health 10 MG 00:00: tablet 00 Furosemide Furosemide 0 Yes [facility] 0.5 tablet Common 06-10 [facility] 00:00: - [facility] 00 [facility] Furosemide Furosemide 2018- No .5{tabl QD Furosemide 20 MG 20 MG 5-01 et} 20 MG 00:00: 00 Furosemide Furosemide No .5{tabl QD Furosemide 20 MG 20 MG 5-01 et} 20 MG 00:00: 00 Furosemide Furosemide 2018-0 No .5{tabl QD Furosemide 20 MG 20 MG 5-01 et} 20 MG 00:00: 00 Furosemide Furosemide No .5{tabl QD Furosemide 20 MG 20 MG 5-01 et} 20 MG 00:00: 00 Furosemide Furosemide 2018- No .5{tabl QD Furosemide 20 MG 20 MG 5-01 et} 20 MG 00:00: 00 Furosemide Furosemide 2019-0 No .5{tabl QD Furosemide 20 MG 20 MG 5-01 et} 20 MG 00:00: 00 Furosemide Furosemide No .5{tabl QD Furosemide 20 MG 20 MG 5-01 et} 20 MG 00:00: 00 Furosemide Furosemide No .5{tabl QD Furosemide 20 MG 20 MG 5- et} 20 MG 00:00: 00 Furosemide Furosemide 2019-0 No .5{tabl QD Furosemide 20 MG 20 MG 5- et} 20 MG 00:00: 00 Furosemide Furosemide 2019-0 No .5{tabl QD Furosemide 20 MG 20 MG 5- et} 20 MG 00:00: 00 Furosemide Furosemide 2019-0 No .5{tabl QD Furosemide 20 MG 20 MG 5- et} 20 MG 00:00: 00 Furosemide Furosemide 2018-0 No .5{tabl QD Furosemide 20 MG 20 MG 5- et} 20 MG 00:00: 00 Furosemide Furosemide 2018-0 No .5{tabl QD Furosemide 20 MG 20 MG 5- et} 20 MG 00:00: 00 Furosemide Furosemide 2019-0 No .5{tabl QD Furosemide 20 MG 20 MG 5- et} 20 MG 00:00: 00 Furosemide Furosemide 2018-0 No .5{tabl QD Furosemide 20 MG 20 MG 5- et} 20 MG 00:00: 00 Furosemide Furosemide 2018-0 No .5{tabl QD Furosemide 20 MG 20 MG 5- et} 20 MG 00:00: 00 Furosemide Furosemide 2019-0 No .5{tabl QD Furosemide 20 MG 20 MG 5- et} 20 MG 00:00: 00 Furosemide Furosemide 2019-0 No .5{tabl QD Furosemide 20 MG 20 MG 5- et} 20 MG 00:00: 00 Furosemide Furosemide 2018-0 No .5{tabl QD Furosemide 20 MG 20 MG 5- et} 20 MG 00:00: 00 Furosemide Furosemide 2019-0 No .5{tabl QD Furosemide 20 MG 20 MG 5- et} 20 MG 00:00: 00 Furosemide Furosemide 2018-0 No .5{tabl QD Furosemide 20 MG 20 MG 5- et} 20 MG 00:00: 00 Furosemide Furosemide 2019-0 No .5{tabl QD Furosemide 20 MG 20 MG 5- et} 20 MG 00:00: 00 Hydrocodone Hydrocodone 2017- Yes Luciano 1 tablet Common -Acetaminop -Acetaminop 0 [place] as needed [facility] hen hen 00:00: - [facility] 00 [facility] HYDROcodone HYDROcodone 2018- No 1{table BID HYDROcodon -Acetaminop -Acetaminop 0- t_as_ne e-Acetamin hen 5-325 hen 5-325 00:00: eded} ophen MG MG 00 5-325 MG HYDROcodone HYDROcodone 2017-02 No 1{table BID HYDROcodon -Acetaminop -Acetaminop 0-01 t_as_ne e-Acetamin hen 5-325 hen 5-325 00:00: eded} ophen MG MG 00 5-325 MG HYDROcodone HYDROcodone 2017-02 No 1{table BID HYDROcodon -Acetaminop -Acetaminop 0-01 t_as_ne e-Acetamin hen 5-325 hen 5-325 00:00: eded} ophen MG MG 00 5-325 MG HYDROcodone HYDROcodone 2017-02 No 1{table BID HYDROcodon -Acetaminop -Acetaminop 0-01 t_as_ne e-Acetamin hen 5-325 hen 5-325 00:00: eded} ophen MG MG 00 5-325 MG HYDROcodone HYDROcodone 2017-02 No 1{table BID HYDROcodon -Acetaminop -Acetaminop 0-01 t_as_ne e-Acetamin hen 5-325 hen 5-325 00:00: eded} ophen MG MG 00 5-325 MG HYDROcodone HYDROcodone 2017-02 No 1{table BID HYDROcodon -Acetaminop -Acetaminop 0-01 t_as_ne e-Acetamin hen 5-325 hen 5-325 00:00: eded} ophen MG MG 00 5-325 MG HYDROcodone HYDROcodone 2017-02 No 1{table BID HYDROcodon -Acetaminop -Acetaminop 0-01 t_as_ne e-Acetamin hen 5-325 hen 5-325 00:00: eded} ophen MG MG 00 5-325 MG HYDROcodone HYDROcodone 2017-02 No 1{table BID HYDROcodon -Acetaminop -Acetaminop 0-01 t_as_ne e-Acetamin hen 5-325 hen 5-325 00:00: eded} ophen MG MG 00 5-325 MG HYDROcodone HYDROcodone 2017-02 No 1{table BID HYDROcodon -Acetaminop -Acetaminop 0-01 t_as_ne e-Acetamin hen 5-325 hen 5-325 00:00: eded} ophen MG MG 00 5-325 MG HYDROcodone HYDROcodone 2017-02 No 1{table BID HYDROcodon -Acetaminop -Acetaminop 0-01 t_as_ne e-Acetamin hen 5-325 hen 5-325 00:00: eded} ophen MG MG 00 5-325 MG HYDROcodone HYDROcodone 2017-02 No 1{table BID HYDROcodon -Acetaminop -Acetaminop 0-01 t_as_ne e-Acetamin hen 5-325 hen 5-325 00:00: eded} ophen MG MG 00 5-325 MG HYDROcodone HYDROcodone 2017-02 No 1{table BID HYDROcodon -Acetaminop -Acetaminop 0-01 t_as_ne e-Acetamin hen 5-325 hen 5-325 00:00: eded} ophen MG MG 00 5-325 MG HYDROcodone HYDROcodone 2017-02 No 1{table BID HYDROcodon -Acetaminop -Acetaminop 0-01 t_as_ne e-Acetamin hen 5-325 hen 5-325 00:00: eded} ophen MG MG 00 5-325 MG HYDROcodone HYDROcodone 2017-02 No 1{table BID HYDROcodon -Acetaminop -Acetaminop 0-01 t_as_ne e-Acetamin hen 5-325 hen 5-325 00:00: eded} ophen MG MG 00 5-325 MG HYDROcodone HYDROcodone 2017-02 No 1{table BID HYDROcodon -Acetaminop -Acetaminop 0-01 t_as_ne e-Acetamin hen 5-325 hen 5-325 00:00: eded} ophen MG MG 00 5-325 MG HYDROcodone HYDROcodone 2017-02 No 1{table BID HYDROcodon -Acetaminop -Acetaminop 0-01 t_as_ne e-Acetamin hen 5-325 hen 5-325 00:00: eded} ophen MG MG 00 5-325 MG HYDROcodone HYDROcodone 2017-02 No 1{table BID HYDROcodon -Acetaminop -Acetaminop 0-01 t_as_ne e-Acetamin hen 5-325 hen 5-325 00:00: eded} ophen MG MG 00 5-325 MG HYDROcodone HYDROcodone 2017-02 No 1{table BID HYDROcodon -Acetaminop -Acetaminop 0-01 t_as_ne e-Acetamin hen 5-325 hen 5-325 00:00: eded} ophen MG MG 00 5-325 MG HYDROcodone HYDROcodone 2017-02 No 1{table BID HYDROcodon -Acetaminop -Acetaminop 0-01 t_as_ne e-Acetamin hen 5-325 hen 5-325 00:00: eded} ophen MG MG 00 5-325 MG HYDROcodone HYDROcodone 2017-02 No 1{table BID HYDROcodon -Acetaminop -Acetaminop 0-01 t_as_ne e-Acetamin hen 5-325 hen 5-325 00:00: eded} ophen MG MG 00 5-325 MG HYDROcodone HYDROcodone 2017-02 No 1{table BID HYDROcodon -Acetaminop -Acetaminop 0-01 t_as_ne e-Acetamin hen 5-325 hen 5-325 00:00: eded} ophen MG MG 00 5-325 MG HYDROcodone HYDROcodone 2017-02 No 1{table BID HYDROcodon -Acetaminop -Acetaminop 0-01 t_as_ne e-Acetamin hen 5-325 hen 5-325 00:00: eded} ophen MG MG 00 5-325 MG Tolterodine Tolterodine Yes SHEFALI 1 PO QD [place] Tartrate ER Tartrate ER 4-30 [facility] 4 MG Oral 4 MG Oral 00:00: N.P. ans Capsule Capsule 00 Extended Extended Release 24 Release 24 Hour Hour sulfamethox [...] per tablet (twelve) Branc h hours. sulfamethox 2017- Yes 1{tbl} Take 1 Un emanuel azole-trime 7-31 tablet by ity of thoprim 00:00: mouth [place] 800-160 mg 00 every 12 Medic al per tablet (twelve) Branc h hours. sulfamethox 2017-0 Yes 1{tbl} Take 1 Un emanuel azole-trime 7-31 tablet by ity of thoprim 00:00: mouth [place] 800-160 mg 00 every 12 Medic al per tablet (twelve) Branc h hours. sulfamethox 2016-2021- No 1{tbl} Take 1 U nivers azole-trime 7-31 08-31 tablet by it y of thoprim 00:00: 00:00 mouth [place] 800-160 mg 00 :00 every 12 Medic al per tablet (twelve) Branc h hours. sulfamethox 2017-2021- No 1{tbl} Take 1 U nivers azole-trime 7-31 08-31 tablet by it y of thoprim 00:00: 00:00 mouth [place] 800-160 mg 00 :00 every 12 Medic al per tablet (twelve) Branc h hours. simvastatin 2017- Yes 40mg Take 40 mg [facility] 40 mg 6-15 by mouth ity of tablet 18:18: at [place] [address] bedtime. Medical Branch traZODONE 2017- Yes 100mg Take [facility] 100 mg 6-15 100-200 mg ity of tablet 18:18: by mouth [place] 54 at bedtime Medical as needed Branch for Insomnia. ARIPiprazol 2017- Yes 20mg Take 20 mg Univers e (ABILIFY) 6-15 by mouth ity of 20 mg 18:18: at [facility] 54 bedtime. Medical Branch suvorexant 2017- Yes 20mg Take 20 mg U nivers (BELSOMRA) 6-15 by mouth ity o f 20 mg Tab 18:18: at [place] [address] bedtime. Medical Branch prednisoLON 2017-0 Yes 1[drp] 1 Drop Un emanuel E acetate 1 6-15 every 2 ity o f % 18:18: (two) [place] ophthalmic 54 hours as Medic al suspension needed for Bra nch drops Itching. foLIC acid 20170 Yes 2mg Take 2 mg Un emanuel 1 mg tablet 6-15 by mouth ity of 18:18: daily. [place] [address] Medical Branch simvastatin 2017-0 Yes 40mg Take 40 mg [facility] 40 mg 6-15 by mouth ity of tablet 18:18: at [place] [address] bedtime. Medical Branch traZODONE 20170 Yes 100mg Take Univers 100 mg 6-15 100-200 mg ity of tablet 18:18: by mouth [place] [address] at bedtime Medical as needed Branch for Insomnia. ARIPiprazol 0 Yes 20mg Take 20 mg Univers e (ABILIFY) 6-15 by mouth ity of 20 mg 18:18: at [place] [address] bedtime. Medical Branch suvorexant 20170 Yes 20mg Take 20 mg U nivers (BELSOMRA) 6-15 by mouth ity o f 20 mg Tab 18:18: at [place] [address] bedtime. Medical Branch prednisoLON 20170 Yes 1[drp] 1 Drop Un emanuel E acetate 1 6-15 every 2 ity o f % 18:18: (two) [place] ophthalmic 54 hours as Medic al suspension needed for Bra nch drops Itching. foLIC acid 20170 Yes 2mg Take 2 mg Un emanuel 1 mg tablet 6-15 by mouth ity of 18:18: daily. [place] [address] Medical Branch simvastatin 2017-0 Yes 40mg Take 40 mg Univers 40 mg 6-15 by mouth ity of tablet 18:18: at [place] [address] bedtime. Medical Branch traZODONE 2017-0 Yes 100mg Take Univers 100 mg 6-15 100-200 mg ity of tablet 18:18: by mouth [place] [address] at bedtime Medical as needed Branch for Insomnia. ARIPiprazol 20170 Yes 20mg Take 20 mg Univers e (ABILIFY) 6-15 by mouth ity of 20 mg 18:18: at [place] [address] bedtime. Medical Branch suvorexant 2017-0 Yes 20mg Take 20 mg U nivers (BELSOMRA) 6-15 by mouth ity o f 20 mg Tab 18:18: at [place] [address] bedtime. Medical Branch prednisoLON 2017-0 Yes 1[drp] 1 Drop Un emanuel E acetate 1 6-15 every 2 ity o f % 18:18: (two) [place] ophthalmic 54 hours as Medic al suspension needed for Bra nch drops Itching. foLIC acid 20170 Yes 2mg Take 2 mg Un emanuel 1 mg tablet 6-15 by mouth ity of 18:18: daily. [place] [address] Medical Branch simvastatin 2017-0 Yes 40mg Take 40 mg Univers 40 mg 6-15 by mouth ity of tablet 18:18: at [place] [address] bedtime. Medical Branch traZODONE 20170 Yes 100mg Take Univers 100 mg 6-15 100-200 mg ity of tablet 18:18: by mouth [place] [address] at bedtime Medical as needed Branch for Insomnia. ARIPiprazol 20170 Yes 20mg Take 20 mg Univers e (ABILIFY) 6-15 by mouth ity of 20 mg 18:18: at [place] [address] bedtime. Medical Branch suvorexant 20170 Yes 20mg Take 20 mg U nivers (BELSOMRA) 6-15 by mouth ity o f 20 mg Tab 18:18: at [place] [address] bedtime. Medical Branch prednisoLON 20170 Yes 1[drp] 1 Drop Un emanuel E acetate 1 6-15 every 2 ity o f % 18:18: (two) [place] ophthalmic 54 hours as Medic al suspension needed for Bra nch drops Itching. foLIC acid 20170 Yes 2mg Take 2 mg Un emanuel 1 mg tablet 6-15 by mouth ity of 18:18: daily. [place] [address] Medical Branch simvastatin 2017-0 Yes 40mg Take 40 mg [facility] 40 mg 6-15 by mouth ity of tablet 18:18: at [place] [address] bedtime. Medical Branch traZODONE 2017-0 Yes 100mg Take [facility] 100 mg 6-15 100-200 mg ity of tablet 18:18: by mouth [place] [address] at bedtime Medical as needed Branch for Insomnia. ARIPiprazol 20170 Yes 20mg Take 20 mg Univers e (ABILIFY) 6-15 by mouth ity of 20 mg 18:18: at [place] [address] bedtime. Medical Branch suvorexant 20170 Yes 20mg Take 20 mg U nivers (BELSOMRA) 6-15 by mouth ity o f 20 mg Tab 18:18: at [place] [address] bedtime. Medical Branch prednisoLON 2017-0 Yes 1[drp] 1 Drop Un emanuel E acetate 1 6-15 every 2 ity o f % 18:18: (two) [place] ophthalmic 54 hours as Medic al suspension needed for Bra nch drops Itching. foLIC acid 20170 Yes 2mg Take 2 mg Un emanuel 1 mg tablet 6-15 by mouth ity of 18:18: daily. [place] [address] Medical Branch simvastatin 2017-0 Yes 40mg Take 40 mg Univers 40 mg 6-15 by mouth ity of tablet 18:18: at [place] [address] bedtime. Medical Branch traZODONE 20170 Yes 100mg Take Univers 100 mg 6-15 100-200 mg ity of tablet 18:18: by mouth [place] [address] at bedtime Medical as needed Branch for Insomnia. ARIPiprazol 2017 Yes 20mg Take 20 mg Univers e (ABILIFY) 6-15 by mouth ity of 20 mg 18:18: at [place] [address] bedtime. Medical Branch suvorexant 20170 Yes 20mg Take 20 mg U nivers (BELSOMRA) 6-15 by mouth ity o f 20 mg Tab 18:18: at [place] [address] bedtime. Medical Branch prednisoLON 20170 Yes 1[drp] 1 Drop Un emanuel E acetate 1 6-15 every 2 ity o f % 18:18: (two) [place] ophthalmic 54 hours as Medic al suspension needed for Bra nch drops Itching. foLIC acid 2017 Yes 2mg Take 2 mg Un emanuel 1 mg tablet 6-15 by mouth ity of 18:18: daily. [address] Branch foLIC acid 20170 Yes 2mg Take 2 mg Un emanuel 1 mg tablet 6-15 by mouth ity of 13:18: daily. [place] [address] Medical Branch simvastatin 2017-0 Yes 40mg Take 40 mg Univers 40 mg 6-15 by mouth ity of tablet 13:18: at [place] [address] bedtime. Medical Branch traZODONE 20170 Yes 100mg Take Univers 100 mg 6-15 100-200 mg ity of tablet 13:18: by mouth [place] [address] at bedtime Medical as needed Branch for Insomnia. ARIPiprazol 2017-0 Yes 20mg Take 20 mg Univers e (ABILIFY) 6-15 by mouth ity of 20 mg 13:18: at [place] [address] bedtime. Medical Branch suvorexant 2017-0 Yes 20mg Take 20 mg U nivers (BELSOMRA) 6-15 by mouth ity o f 20 mg Tab 13:18: at [place] [address] bedtime. Medical Branch prednisoLON 2017-0 Yes 1[drp] 1 Drop Un emanuel E acetate 1 6-15 every 2 ity o f % 13:18: (two) [place] ophthalmic 54 hours as Medic al suspension needed for Bra nch drops Itching. foLIC acid 2017-0 Yes 2mg Take 2 mg Un emanuel 1 mg tablet 6-15 by mouth ity of 13:18: daily. [place] [address] Medical Branch simvastatin 2017-0 Yes 40mg Take 40 mg Univers 40 mg 6-15 by mouth ity of tablet 13:18: at [place] [address] bedtime. Medical Branch traZODONE 2017 Yes 100mg Take Univers 100 mg 6-15 100-200 mg ity of tablet 13:18: by mouth [place] [address] at bedtime Medical as needed Branch for Insomnia. ARIPiprazol 20170 Yes 20mg Take 20 mg Univers e (ABILIFY) 6-15 by mouth ity of 20 mg 13:18: at [place] [address] bedtime. Medical Branch suvorexant 2017-0 Yes 20mg Take 20 mg U nivers (BELSOMRA) 6-15 by mouth ity o f 20 mg Tab 13:18: at [place] [address] bedtime. Medical Branch prednisoLON 2017-0 Yes 1[drp] 1 Drop Un emanuel E acetate 1 6-15 every 2 ity o f % 13:18: (two) [place] ophthalmic 54 hours as Medic al suspension needed for Bra nch drops Itching. foLIC acid 2017-0 Yes 2mg Take 2 mg Un emanuel 1 mg tablet 6-15 by mouth ity of 13:18: daily. [place] [address] Medical Branch simvastatin 2017-0 Yes 40mg Take 40 mg Univers 40 mg 6-15 by mouth ity of tablet 13:18: at [place] [address] bedtime. Medical Branch traZODONE 2017-0 Yes 100mg Take Univers 100 mg 6-15 100-200 mg ity of tablet 13:18: by mouth [place] [address] at bedtime Medical as needed Branch for Insomnia. ARIPiprazol 2017-0 Yes 20mg Take 20 mg Univers e (ABILIFY) 6-15 by mouth ity of 20 mg 13:18: at [place] [address] bedtime. Medical Branch suvorexant 2017-0 Yes 20mg Take 20 mg U nivers (BELSOMRA) 6-15 by mouth ity o f 20 mg Tab 13:18: at [place] [address] bedtime. Medical Branch prednisoLON 2017-0 Yes 1[drp] 1 Drop Un emanuel E acetate 1 6-15 every 2 ity o f % 13:18: (two) [place] ophthalmic 54 hours as Medic al suspension needed for Bra nch drops Itching. foLIC acid 2017-0 Yes 2mg Take 2 mg Un emanuel 1 mg tablet 6-15 by mouth ity of 13:18: daily. [place] [address] Medical Branch simvastatin 2017-0 Yes 40mg Take 40 mg Univers 40 mg 6-15 by mouth ity of tablet 13:18: at [place] [address] bedtime. Medical Branch traZODONE 20170 Yes 100mg Take Univers 100 mg 6-15 100-200 mg ity of tablet 13:18: by mouth [place] [address] at bedtime Medical as needed Branch for Insomnia. ARIPiprazol 20170 Yes 20mg Take 20 mg Univers e (ABILIFY) 6-15 by mouth ity of 20 mg 13:18: at [place] [address] bedtime. Medical Branch suvorexant 20170 Yes 20mg Take 20 mg U nivers (BELSOMRA) 6-15 by mouth ity o f 20 mg Tab 13:18: at [place] [address] bedtime. Medical Branch prednisoLON 2017-0 Yes 1[drp] 1 Drop Un emanuel E acetate 1 6-15 every 2 ity o f % 13:18: (two) [place] ophthalmic 54 hours as Medic al suspension needed for Bra nch drops Itching. foLIC acid 2017-0 Yes 2mg Take 2 mg Un emanuel 1 mg tablet 6-15 by mouth ity of 13:18: daily. [place] [address] Medical Branch simvastatin 2017-0 Yes 40mg Take 40 mg Univers 40 mg 6-15 by mouth ity of tablet 13:18: at [place] [address] bedtime. Medical Branch traZODONE 2017-0 Yes 100mg Take Univers 100 mg 6-15 100-200 mg ity of tablet 13:18: by mouth [place] [address] at bedtime Medical as needed Branch for Insomnia. ARIPiprazol 2017-0 Yes 20mg Take 20 mg Univers e (ABILIFY) 6-15 by mouth ity of 20 mg 13:18: at [place] [address] bedtime. Medical Branch suvorexant 20170 Yes 20mg Take 20 mg U nivers (BELSOMRA) 6-15 by mouth ity o f 20 mg Tab 13:18: at [place] [address] bedtime. Medical Branch prednisoLON 2017- Yes 1[drp] 1 Drop Un emanuel E acetate 1 6-15 every 2 ity o f % 13:18: (two) [place] ophthalmic 54 hours as Medic al suspension needed for Bra nch drops Itching. foLIC acid 20170 Yes 2mg Take 2 mg Un emanuel 1 mg tablet 6-15 by mouth ity of 13:18: daily. [place] [address] Medical Branch simvastatin 2017-0 Yes 40mg Take 40 mg Univers 40 mg 6-15 by mouth ity of tablet 13:18: at [place] [address] bedtime. Medical Branch traZODONE 20170 Yes 100mg Take Univers 100 mg 6-15 100-200 mg ity of tablet 13:18: by mouth [place] [address] at bedtime Medical as needed Branch for Insomnia. ARIPiprazol 2017 Yes 20mg Take 20 mg Univers e (ABILIFY) 6-15 by mouth ity of 20 mg 13:18: at [place] [address] bedtime. Medical Branch suvorexant 0 Yes 20mg Take 20 mg U nivers (BELSOMRA) 6-15 by mouth ity o f 20 mg Tab 13:18: at [place] [address] bedtime. Medical Branch prednisoLON 20170 Yes 1[drp] 1 Drop Un emanuel E acetate 1 6-15 every 2 ity o f % 13:18: (two) [place] ophthalmic 54 hours as Medic al suspension needed for Bra nch drops Itching. foLIC acid 2017-0 Yes 2mg Take 2 mg Un emanuel 1 mg tablet 6-15 by mouth ity of 13:18: daily. [place] [address] Medical Branch simvastatin 2017-0 Yes 40mg Take 40 mg Univers 40 mg 6-15 by mouth ity of tablet 13:18: at [place] [address] bedtime. Medical Branch traZODONE 2017-0 Yes 100mg Take Univers 100 mg 6-15 100-200 mg ity of tablet 13:18: by mouth [place] [address] at bedtime Medical as needed Branch for Insomnia. ARIPiprazol 20170 Yes 20mg Take 20 mg Univers e (ABILIFY) 6-15 by mouth ity of 20 mg 13:18: at [place] [address] bedtime. Medical Branch suvorexant 20170 Yes 20mg Take 20 mg U nivers (BELSOMRA) 6-15 by mouth ity o f 20 mg Tab 13:18: at [place] [address] bedtime. Medical Branch prednisoLON 20170 Yes 1[drp] 1 Drop Un emaneul E acetate 1 6-15 every 2 ity o f % 13:18: (two) [place] ophthalmic 54 hours as Medic al suspension needed for Bra nch drops Itching. foLIC acid 20170 Yes 2mg Take 2 mg Un emanuel 1 mg tablet 6-15 by mouth ity of 13:18: daily. [place] [address] Medical Branch simvastatin 20170 Yes 40mg Take 40 mg Univers 40 mg 6-15 by mouth ity of tablet 13:18: at [place] [address] bedtime. Medical Branch traZODONE 0 Yes 100mg Take Univers 100 mg 6-15 100-200 mg ity of tablet 13:18: by mouth [place] [address] at bedtime Medical as needed Branch for Insomnia. ARIPiprazol Yes 20mg Take 20 mg Univers e (ABILIFY) 6-15 by mouth ity of 20 mg 13:18: at [place] [address] bedtime. Medical Branch suvorexant Yes 20mg Take 20 mg U nivers (BELSOMRA) 6-15 by mouth ity o f 20 mg Tab 13:18: at [place] [address] bedtime. Medical Branch prednisoLON 20170 Yes 1[drp] 1 Drop Un emanuel E acetate 1 6-15 every 2 ity o f % 13:18: (two) [place] ophthalmic 54 hours as Medic al suspension needed for Bra nch drops Itching. foLIC acid 2017-0 Yes 2mg Take 2 mg Un emanuel 1 mg tablet 6-15 by mouth ity of 13:18: daily. [place] [address] Medical Branch simvastatin 2017-0 Yes 40mg Take 40 mg Univers 40 mg 6-15 by mouth ity of tablet 13:18: at [place] [address] bedtime. Medical Branch traZODONE 20170 Yes 100mg Take Univers 100 mg 6-15 100-200 mg ity of tablet 13:18: by mouth [place] [address] at bedtime Medical as needed Branch for Insomnia. ARIPiprazol 2017 Yes 20mg Take 20 mg Univers e (ABILIFY) 6-15 by mouth ity of 20 mg 13:18: at [facility] 54 bedtime. Medical Branch suvorexant 2017 Yes 20mg Take 20 mg U nivers (BELSOMRA) 6-15 by mouth ity o f 20 mg Tab 13:18: at [place] [address] bedtime. Medical Branch prednisoLON 2017 Yes 1[drp] 1 Drop Un emanuel E acetate 1 6-15 every 2 ity o f % 13:18: (two) [place] ophthalmic 54 hours as Medic al suspension needed for Bra nch drops Itching. foLIC acid 2017 Yes 2mg Take 2 mg Un emanuel 1 mg tablet 6-15 by mouth ity of 13:18: daily. [place] [address] Medical Branch simvastatin 2017 Yes 40mg Take 40 mg Univers 40 mg 6-15 by mouth ity of tablet 13:18: at [place] [address] bedtime. Medical Branch traZODONE 2017 Yes 100mg Take Univers 100 mg 6-15 100-200 mg ity of tablet 13:18: by mouth [place] [address] at bedtime Medical as needed Branch for Insomnia. ARIPiprazol Yes 20mg Take 20 mg Univers e (ABILIFY) 6-15 by mouth ity of 20 mg 13:18: at [place] [address] bedtime. Medical Branch suvorexant 2017 Yes 20mg Take 20 mg U nivers (BELSOMRA) 6-15 by mouth ity o f 20 mg Tab 13:18: at [place] [address] bedtime. Medical Branch prednisoLON 2017 Yes 1[drp] 1 Drop Un emanuel E acetate 1 6-15 every 2 ity o f % 13:18: (two) [place] ophthalmic 54 hours as Medic al suspension needed for Bra nch drops Itching. Zetia No Notes: Memoria 08-10 (Same as: l 14:00: Zetia) Dexilant 0 No 60 mg, Memoria 08-10 Route: PO, l 14:00: Drug form: DRC, Daily, Dosing Weight 134.5, kg, Start date: 08/11/15 9:00:00 CDT, Duration: 30 day, Stop date: 09/09/15 9:00:00 CDT Zetia 2015-0 No Notes: Memoria 08-10 (Same as: l 14:00: Zetia) [place] 00 Dexilant 2015-0 No 60 mg, Memoria 08-10 Route: PO, l 14:00: Drug form: [place] 00 DRC, Daily, Dosing Weight 134.5, kg, Start date: 08/11/15 9:00:00 CDT, Duration: 30 day, Stop date: 09/09/15 9:00:00 CDT Nuvigil 2015-0 No 250 mg, Memoria 08-10 Route: PO, l 14:00: Drug form: [place] 00 TAB, Daily, Dosing Weight 134.5, kg, Start date: 08/11/15 9:00:00 CDT, Duration: 30 day, Stop date: 09/09/15 9:00:00 CDT Abilify 2015-0 No 20 mg, Memoria 08-10 Route: PO, l 14:00: Drug form: [place] 00 TAB, Daily, Dosing Weight 134.5, kg, Start date: 08/11/15 9:00:00 CDT, Duration: 30 day, Stop date: 09/09/15 9:00:00 CDT Deplin 2015-0 No 15 mg, Memoria 08-10 Route: PO, l 14:00: Drug form: [place] 00 CAP, Daily, Dosing Weight 134.5, kg, Start date: 08/11/15 9:00:00 CDT, Duration: 30 day, Stop date: 09/09/15 9:00:00 CDT Hydrochloro 2016-0 No 1 tab, Alonzo summer thiazide 08-10 Route: PO, l 12.5 MG / 14:00: Drug Form: Mikel carolarchana Lisinopril 00 TAB, 10 MG Oral Dosing Tablet Weight 134.5, kg, Daily, Start date: 08/11/15 9:00:00 CDT, Duration: 30 day, Stop date: 09/09/15 9:00:00 CDT Nuvigil 2015-0 No 250 mg, Memoria 08-10 Route: PO, l 14:00: Drug form: [place] 00 TAB, Daily, Dosing Weight 134.5, kg, Start date: 08/11/15 9:00:00 CDT, Duration: 30 day, Stop date: 09/09/15 9:00:00 CDT Abilify 2016-0 No 20 mg, Memoria 08-10 Route: PO, l 14:00: Drug form: [place] 00 TAB, Daily, Dosing Weight 134.5, kg, Start date: 08/11/15 9:00:00 CDT, Duration: 30 day, Stop date: 09/09/15 9:00:00 CDT Deplin 2015-0 No 15 mg, Memoria 08-10 Route: PO, l 14:00: Drug form: [place] 00 CAP, Daily, Dosing Weight 134.5, kg, [...] CDT Savella 2016-0 No 50 mg, Memoria 6-30 Route: PO, l 22:00: Drug form: [place] 00 TAB, BID, Dosing Weight 134.5, kg, Start date: 08/10/15 17:00:00 CDT Savella 2016-0 No 50 mg, Memoria 630 Route: PO, l 22:00: Drug form: [place] 00 TAB, BID, Dosing Weight 134.5, kg, Start date: 08/10/15 17:00:00 CDT Ketorolac 2015-0 No 4 days Memor ia 6-30 l 17:00: MEDICATION WASTE Product Size: 30 mg Product Wasted: _15__ mg Ketorolac 2015-0 No 4 days Memor ia [...] Memoria l 6-30 RT l 16:29: DOCUMENTAT [place] 00 ION (Same as:Xopenex ) Non-Formul george Naloxone No Notes: Memoria 6-30 Same as l 16:29: Narcan Meperidine No Notes: Memor ia 30 (Same as: l 16:29: Demerol) "Use Precaution in Elderly, Seizure disorders, and Renal impairment " Promethazin No Notes: Do M emoria e -30 not give l 16:29: IV push. (Same as: Phenergan) Dexamethaso No Notes: Alonzo summer ne 30 Concentrat l 16:29: ion: [place] 00 4mg/ml Ondansetron No Notes: Alonzo summer 6-30 (Same as: l 16:29: Zofran) MEDICATION WASTE Product Size: 4 mg Product Wasted: ___ mg Diphenhydra No Notes: Alonzo summer mine -30 (Same as: l 16:29: Benadryl) Albuterol No Notes: SEE Me moria 0.83 MG/ML -30 RT l Inhalant 16:29: DOCUMENTAT Her brito Solution 00 ION (Same as: Proventil) Atropine No Notes: Mem oria 6-30 MEDICATION l 16:29: WASTE Product Size: 0.4 mg Product Wasted: _0.2__ mg Glycopyrrol No Notes: Alonzo summer ate -30 (Same as: l 16:29: Robinul) Phenylephri No Notes: Alonzo summer ne -30 Same as: l 16:29: Erik-Syneph [place] 00 rine Albuterol No Notes: Memori a 0.833 MG/ML -30 (Same as: l / 16:29: Duoneb) [place] Ipratropium 00 [place] 0.167 MG/ML Inhalant Solution [DuoNeb] celecoxib Yes Notes: Memori a 6-30 NSAID. l 16:29: Please [place] 00 check indication . Not for seizure. (Same As: CeleBREX) 72 HR Yes Notes: Memoria Scopolamine -30 Change l 0.0139 16:29: patch [place] MG/HR 00 every 72 Transdermal hours Patch (Same as: Transderm- Scop) Midazolam No Notes: Memori a 6-30 (Same as: l 16:29: Versed) MEDICATION WASTE Product Size: 2 mg Product Wasted: _1__ mg Ephedrine No Notes: Memori a -30 (Same as: l 16:29: ePHEDrine [place] 00 Sulfate) Flumazenil No Notes: Memor ia 6-30 (Same as: l 16:29: Romazicon) Calcium No 1,000 mL, Memor ia Chloride 30 Rate: 125 l 0.0014 16:29: ml/hr, [place] MEQ/ML / 00 Infuse Potassium over: 8 [...] Memoria 6-30 (Same as: l 16:29: Sublimaze) Preservati ve free. Oxycodone No Notes: Memori a 6-30 (Same as: l 16:29: Roxicodone ) Hydromorpho No Notes: Alonzo summer ne -30 (Same as: l 16:29: Dilaudid) Acetaminoph No Notes: Laonzo summer en 30 Infuse l 16:29: over 15 minutes Do not exceed 4gm/day of acetaminop hen MEDICATION WASTE Product Size: 1000 mg Product Wasted: ___ mg Ibuprofen No Notes: Memori a 6-30 (Same as: l 16:29: Motrin) "Do Not Crush" Take with food. Insulin, No Notes: Memoria Aspart, 08-09 Roll in l Human 16:29: palms of [...] Promethazin No Notes: Do M emoria e -30 not give l 16:29: IV push. (Same as: Phenergan) Dexamethaso No Notes: Alonzo summer ne 6-30 Concentrat l 16:29: ion: [place] 00 4mg/ml Ondansetron No Notes: Alonzo summer 6-30 (Same as: l 16:29: Zofran) MEDICATION WASTE Product Size: 4 mg Product Wasted: ___ mg Diphenhydra No Notes: Alonzo summer mine 6-30 (Same as: l 16:29: Benadryl) Albuterol No Notes: SEE Me moria 0.83 MG/ML -30 RT l Inhalant 16:29: DOCUMENTAT Her brito Solution 00 ION (Same as: Proventil) Atropine No Notes: Mem oria 6-30 MEDICATION l 16:29: WASTE Product Size: 0.4 mg Product Wasted: _0.2__ mg Glycopyrrol No Notes: Alonzo summer ate -30 (Same as: l 16:29: Robinul) 00 Phenylephri No Notes: Laonzo summer ne 6-30 Same as: l 16:29: Erik-Syneph rine Albuterol No Notes: Memori a 0.833 MG/ML -30 (Same as: l / 16:29: Duoneb) Ipratropium 00 [place] 0.167 MG/ML Inhalant Solution [DuoNeb] celecoxib Yes Notes: Memori a 6-30 NSAID. l 16:29: Please [place] 00 check indication . Not for seizure. (Same As: CeleBREX) 72 HR Yes Notes: Memoria Scopolamine 6-30 Change l 0.0139 16:29: patch [place] MG/HR 00 every 72 Transdermal hours Patch (Same as: Transderm- Scop) Midazolam No Notes: Memori a 6-30 (Same as: l 16:29: Versed) MEDICATION WASTE Product Size: 2 mg Product Wasted: _1__ mg Ephedrine No Notes: Memori a 6-30 (Same as: l 16:29: ePHEDrine Sulfate) Flumazenil No Notes: Memor ia 6-30 (Same as: l 16:29: Romazicon) [place] Calcium No 1,000 mL, Memor ia Chloride 6-30 Rate: 125 l 0.0014 16:29: ml/hr, [place] MEQ/ML / 00 Infuse Potassium over: 8 [...] Memoria 6-30 (Same as: l 16:29: Sublimaze) Preservati ve free. Oxycodone No Notes: Memori a 6-30 [...] / 6-30 (Same as: l Hydrocodone 16:24: [place] Judith nn Bitartrate 00 325/5) Do 5 MG Oral not exceed Tablet 4gm/day of acetaminop hen. Tramadol No Notes: Not Mem oria 6-30 to exceed l 16:24: 400mg/day. (Same As: Ultram) Acetaminoph No Notes: Do M emoria en 6-30 not exceed l 16:24: 4 gm/day. (Same as: Tylenol) Hydromorpho No Notes: Alonzo summer ne 6-30 (Same as: l 16:24: Dilaudid) Acetaminoph No Notes: Alonzo summer en 325 MG / 6-30 (Same as: l Hydrocodone 16:24: [place] Judith nn Bitartrate 00 325/5) Do 5 MG Oral not exceed Tablet 4gm/day of acetaminop hen. Tramadol No Notes: Not Mem oria 6-30 to exceed l 16:24: 400mg/day. 00 (Same As: Ultram) ondansetron No Route: IV, Memoria (ANES) 6-30 Drug form: l 16:11: INJ, ONCE, Stop date: 08/10/15 11:11:00 CDT ondansetron 0 No Route: IV, Memoria (ANES) 6-30 Drug form: l 16:11: INJ, ONCE, Stop date: 08/10/15 11:11:00 CDT phenylephri No Route: IV, Memoria ne (ANES) 6-30 Drug form: l 16:01: INJ, ONCE, Stop date: 08/10/15 11:01:00 CDT phenylephri 2015-0 No Route: IV, Memoria ne (ANES) 6-30 Drug form: l 16:01: INJ, ONCE, Stop date: 08/10/15 11:01:00 CDT succinylcho 2016-0 No Route: IV, Memoria line (ANES) 6-30 Drug form: l 15:45: INJ, ONCE, Stop date: 08/10/15 10:45:00 CDT propofol 2016-0 No Route: IV, Mem oria (ANES) 6-30 Drug form: l 15:45: INJ, ONCE, Stop date: 08/10/15 10:45:00 CDT lidocaine 2016-0 No Route: IV, Me moria (ANES) 6-30 Drug form: l 15:45: INJ, ONCE, Stop date: 08/10/15 10:45:00 CDT fentaNYL 2016-0 No Route: IV, Mem oria (ANES) 6-30 Drug form: l 15:45: INJ, ONCE, Stop date: 08/10/15 10:45:00 CDT midazolam 2016-0 No Route: IV, Me moria (ANES) 6-30 Drug form: l 15:45: SOLN, [place] ONCE, Stop date: 08/10/15 10:45:00 CDT succinylcho 2015-0 No Route: IV, Memoria line (ANES) 6-30 Drug form: l 15:45: INJ, ONCE, Stop date: 08/10/15 10:45:00 CDT propofol 2016-0 No Route: IV, Mem oria (ANES) 6-30 Drug form: l 15:45: INJ, ONCE, Stop date: 08/10/15 10:45:00 CDT lidocaine 2016-0 No Route: IV, Me moria (ANES) 6-30 Drug form: l 15:45: INJ, ONCE, Stop date: 08/10/15 10:45:00 CDT fentaNYL 2016-0 No Route: IV, Mem oria (ANES) 6-30 Drug form: l 15:45: INJ, ONCE, [place] 00 Stop date: 08/10/15 10:45:00 CDT midazolam No Route: IV, Me moria (ANES) 630 Drug form: l 15:45: SOLN, ONCE, Stop date: 08/10/15 10:45:00 CDT ePHEDrine No Route: IV, Me moria (ANES) 6-30 Drug form: l 15:40: INJ, ONCE, Stop date: 08/10/15 10:40:00 CDT ePHEDrine No Route: IV, Me moria (ANES) 630 Drug form: l 15:40: INJ, ONCE, Stop date: 08/10/15 10:40:00 CDT ceFAZolin No Route: IV, Me moria (ANES) 6-30 Drug form: l 15:34: INJ, ONCE, Stop date: 08/10/15 10:34:00 CDT ceFAZolin No Route: IV, Me moria (ANES) 6-30 Drug form: l 15:34: INJ, ONCE, Stop date: 08/10/15 10:34:00 CDT LR 1000 mL No Route: IV, M emoria INJ (ANES) 6-30 Total l 14:51: Volume: [place] 00 1,000, Start date: 08/10/15 9:51:00 CDT, Stop date: 08/10/15 10:51:00 CDT LR 1000 mL No Route: IV, M emoria INJ (ANES) -30 Total l 14:51: Volume: [place] 00 1,000, Start date: 08/10/15 9:51:00 CDT, Stop date: 08/10/15 10:51:00 CDT Insulin, No Notes: Memoria Aspart, 6-30 Roll in l Human 13:01: palms of hands gently; Do not shake vigorously . (Same as: NovoLOG) "single patient use only" WASTE: F/P - Black; E - Municipal Trash Bin Stable for 28 days at room temperatur e. Expires in days from ____Date 200 ACTUAT No Notes: Memor ia Albuterol 6-30 Same as: l 0.09 13:01: Ventolin [place] MG/ACTUAT 00 HFA WASTE: Metered Aerosol - Dose Return to [facility] Calcium No 1,000 mL, Memor ia Chloride 6-30 Rate: 25 l 0.0014 13:01: ml/hr, [place] MEQ/ML / 00 Infuse Potassium over: 40 Chloride hr, Route: 0.004 IV, Dosing MEQ/ML / Weight Sodium 134.091 Chloride kg, Total 0.103 Volume: MEQ/ML / 1,000, Sodium Start Lactate date: 0.028 08/09/16 MEQ/ML 8:01:00 Injectable CDT, Solution Duration: 30 day, Stop date: 09/09/15 8:00:00 CDT Insulin, No Notes: Memoria Aspart, 6-30 Roll in l Human 13:01: palms of [place] 00 hands gently; Do not shake vigorously . (Same as: NovoLOG) "single patient use only" WASTE: F/P - Black; E - Municipal Trash Bin Stable for 28 days at room temperatur e. Expires in days from ____Date 200 ACTUAT No Notes: Memor ia Albuterol 6-30 Same as: l 0.09 13:01: Ventolin [place] MG/ACTUAT 00 HFA WASTE: Metered Aerosol - Dose Return to [facility]hal[facility] Calcium No 1,000 mL, Memor ia Chloride 6-30 Rate: 25 l 0.0014 13:01: ml/hr, [place] MEQ/ML / 00 Infuse Potassium over: 40 Chloride hr, Route: 0.004 IV, Dosing MEQ/ML / Weight Sodium 134.091 Chloride kg, Total 0.103 Volume: MEQ/ML / 1,000, Sodium Start Lactate date: 0.028 30/16 MEQ/ML 8:01:00 Injectable CDT, Solution Duration: 30 day, Stop date: 09/09/15 8:00:00 CDT BD Normal No Notes: Memori a Saline 6-30 (Same as: l Flush 11:00: BD [place] 00 Posiflush) Ancef No Notes: Memoria 6-30 Same as: l 11:00: Ancef [place] 00 BD Normal No Notes: Memori a Saline 6-30 (Same as: l Flush 11:00: BD [place] 00 Posiflush) Ancef No Notes: Memoria 6-30 Same as: l 11:00: Ancef [place] 00 Deplin 15 Yes 15 mg = 1 Mem oria mg oral 6-23 cap, PO, l capsule 14:59: Daily, 0 Randy n 00 Refill(s) Deplin 15 Yes 15 mg = 1 Mem oria mg oral 6-23 cap, PO, l capsule 14:59: Daily, 0 Randy n 00 Refill(s) armodafinil Yes 250 mg = 1 Memoria 250 MG Oral 6-23 tab, PO, l Tablet 14:58: Daily, # [place] [Nuvigil] 00 30 tab, 0 Refill(s) armodafinil Yes 250 mg = 1 Memoria 250 MG Oral 6-23 tab, PO, l Tablet 14:58: Daily, # [place] [Nuvigil] 00 30 tab, 0 Refill(s) Suvorexant Yes 10 mg = 1 Me moria 10 MG Oral 6-23 tab, PO, l Tablet 14:57: Bedtime, 0 Judith nn [Belsomra] 00 Refill(s) Suvorexant Yes 10 mg = 1 [...] Daily, 0 He rmann [Abilify] 00 Refill(s) ezetimibe Yes 10 mg = 1 Mem oria 10 MG Oral 6-23 tab, PO, l Tablet 14:56: Daily, 0 [place] [Zetia] 00 Refill(s) Milnacipran Yes 50 mg [...] Randy n Coated 00 Refill(s) Capsule [Dexilant] Tresiba Yes SUB-Q, Memoria FlexTouch 6-23 Daily, [...] He rmann Solution 00 [Simponi Aria] Hydrochloro 2016-0 Yes 1 tab, PO, Memoria thiazide 6-23 Daily, 0 l 12.5 MG / 14:54: Refill(s) Her brito Lisinopril 00 10 MG Oral Tablet solifenacin Yes 10 mg = 1 M emoria succinate 6-23 tab, PO, l 10 MG Oral 14:54: Daily, 0 Her brito Tablet 00 Refill(s) [VESICARE] golimumab 20160 Yes IV, q4wk, Mem oria 12.5 MG/ML [...] roquine 6-23 PO, Daily, l 14:53: 0 [place] 00 Refill(s) pilocarpine Yes 7.5 mg = 1 Memoria 7.5 mg oral 6-23 tab, PO, l tablet 14:53: TID, # 90 Randy n 00 tab, 0 Refill(s) cyclobenzap 2016-0 Yes 10 mg = 1 M emoria rine 10 mg 6-23 tab, PO, l oral tablet 14:53: TID, PRN He rmann 00 for spasms, # 30 tab, 0 Refill(s) pilocarpine 2016-0 Yes 7.5 mg = 1 Memoria 7.5 [...] roquine 6-23 PO, Daily, l 14:53: 0 [place] 00 Refill(s) celecoxib Yes 200 mg = 1 Me moria 200 MG Oral 6-23 cap, PO, l Capsule 14:52: BID, 0 [place] [Celebrex] 00 Refill(s) Methotrexat Yes 0 Memori a e 6-23 Refill(s) l 14:52: [place] 00 Methotrexat Yes INTRATHECA Memoria e Sodium, 6-23 L, ONCE, 0 l Preservativ 14:52: Refill(s) H ermann e Free 25 00 mg/mL injectable solution celecoxib Yes 200 mg = 1 Me [...] tab, PO, l Tablet 14:51: Daily, 0 [place] 00 Refill(s) Folic Acid Yes 1 mg = 1 Mem oria 1 MG Oral 6-23 tab, PO, l Tablet 14:51: Daily, 0 [place] 00 Refill(s) Celebrex Celebrex Yes Luciano 1 capsule Common [place] with food [facility] Cyclobenzap Cyclobenzap Yes Luciano 1 tablet Common rine HCl rine HCl [place] as needed S pirit [facility] Zestoretic Zestoretic Yes Luciano 1 tablet Common Travis [facility] Abilify Abilify Yes Luciano 1 tablet Com mon Travis [facility] Restasis Restasis Yes Luciano 1 drop Com mon Travis into [facility] affected - [facility] eye [facility] Humalog Humalog Yes Luciano as Common Travis directed [facility] Plaquenil Plaquenil Yes Luciano 1 tablet Common Travis with food [facility] or milk [facility] Iron Iron Yes Luciano 1 tablet Common Travis [facility] Leflunomide Leflunomide Yes Luciano 1 tablet Common Travis [facility] Vistaril Vistaril Yes Luciano 1 capsule Common [place] as needed [facility] Bydureon Bydureon Yes Luciano not Commo n Travis defined [facility] ProAir HFA ProAir HFA Yes Luciano 2 puffs as Common Travis needed [facility] Pilocarpine Pilocarpine Yes Luciano 1 tablet Common HCl HCl Travis [facility] Savella Savella Yes Luciano 2 tablets Co mmon Travis [facility] Guaifenesin Guaifenesin Yes Luciano 10 ml as Common -Codeine -Codeine Travis needed Spir [facility] Atorvastati Atorvastati Yes Luciano 1 tablet Common n Calcium n Calcium Travis Spir [facility] Omeprazole Omeprazole Yes Luciano 1 capsule Common Travis [facility] Breo Breo Yes Luciano 1 puff Common Ellipta Ellipta Travis [facility] Trazodone Trazodone Yes Luciano 1 tablet Common HCl HCl Travis at bedtime [facility] Toujeo Toujeo Yes Luciano not Common SoloStar SoloStar Travis defined Spi rit [facility] Tolterodine Tolterodine Yes Luciano 1 capsule Common Tartrate ER Tartrate ER Travis [facility] Hemocyte Hemocyte Yes Luciano 1 capsule Common Plus Plus Travis [facility] Folic Acid Folic Acid Yes Luciano 1 tablet Common Travis [facility] MetFORMIN MetFORMIN Yes Luciano 1 tablet Common HCl ER HCl ER Travis at night [facility] Metformin Metformin Yes Luciano 1 tablet Common HCl HCl [place] with a Spirit meal in - [facility] the [facility] Saphris Saphris Yes Luciano 1 tablet Com mon [place] under the Spirit tongue and - [facility] allow to [facility] Paxil Paxil Yes Luciano 1 tablet Common [place] in the Spirit morning [facility] Colace Colace Yes Luciano 1 capsule Comm on [place] as needed Spirit [facility] Leflunomide Leflunomide No 1{table QD Leflunomid 20 MG 20 MG t} e 20 MG Hemocyte Hemocyte No 1{capsu QD Hemocyte Plus 106-1 Plus 106-1 le} Plus 106-1 MG MG MG amitriptyli amitriptyli No amitriptyl ne ne ine Breo Breo No 1{puff} QD Breo Ellipta Ellipta Ellipta 200-25 200-25 200-25 MCG/INH MCG/INH MCG/INH Zestoretic Zestoretic No Zestoretic 20-12.5 MG 20-12.5 MG 20-12.5 MG Atorvastati Atorvastati No 1{table QD Atorvastat n Calcium n Calcium t} in Calcium 10 MG 10 MG 10 MG metFORMIN metFORMIN No QD metFORMIN HCl ER 500 HCl ER 500 HCl ER 500 MG MG MG Toujeo Toujeo No BID Toujeo SoloStar SoloStar SoloStar 300u/ml 300u/ml 300u/ml Colace 100 Colace 100 No 1{capsu Colace 100 MG MG le_as_n MG eeded} Omeprazole Omeprazole No 1{capsu QD Omeprazole 40 MG 40 MG le} 40 MG Zestoretic Zestoretic No 1{table QD Zestoretic 20-12.5 MG 20-12.5 MG t} 20-12.5 MG Toujeo Toujeo No Toujeo SoloStar SoloStar SoloStar 300 unit/mL 300 unit/mL 300 unit/mL Zoloft 50 Zoloft 50 No 1{table QD Zoloft 50 MG MG t} MG Savella 50 Savella 50 No 2{table BID Savella 50 MG MG ts} MG ProAir HFA ProAir HFA No 2{puffs QID ProAir HFA 108 (90 108 (90 _as_nee 108 (90 Base) Base) ded} Base) MCG/ACT MCG/ACT MCG/ACT amitriptyli amitriptyli No amitriptyl ne ne ine Breo Breo No 1{puff} QD Breo Ellipta Ellipta Ellipta 200-25 200-25 200-25 MCG/INH MCG/INH MCG/INH Pilocarpine Pilocarpine No 1{table TID Pilocarpin HCl 7.5 MG HCl 7.5 MG t} e HCl 7.5 MG Bydureon 2 Bydureon 2 No Bydureon 2 MG MG MG CeleBREX CeleBREX No 1{capsu QD CeleBREX 200 MG 200 MG le_with 200 MG _food} Cyclobenzap Cyclobenzap No 1{table TID Cyclobenza rine HCl 10 rine HCl 10 t_as_ne anatoliy HCl MG MG eded} 10 MG Baclofen 10 Baclofen 10 No 1{table QD Baclofen MG MG t_as_ne 10 MG eded} Saphris 10 Saphris 10 No 1{table QD Saphris 10 MG MG t_under MG _the_to ngue_an d_allow _to_dis solve} Restasis Restasis No 1{drop_ BID Restasis 0.05 % 0.05 % into_af 0.05 % fected_ eye} Nuvigil Nuvigil No Nuvigil Plaquenil Plaquenil No 1{table QD Plaquenil 200 MG 200 MG t_with_ 200 MG food_or _milk} HumaLOG 100 HumaLOG 100 No HumaLOG UNIT/ML UNIT/ML 100 UNIT/ML guaiFENesin guaiFENesin No 10{ml_a guaiFENesi -Codeine -Codeine s_neede n-Codeine 100-10 100-10 d} 100-10 MG/5ML MG/5ML MG/5ML [place] metFORMIN metFORMIN No QD metFORMIN HCl 1000 MG HCl 1000 MG HCl 1000 MG Vistaril 25 Vistaril 25 No 1{capsu TID Vistaril MG MG le_as_n 25 MG eeded} Gabapentin Gabapentin No 1{capsu Gabapentin 300 MG 300 MG le} 300 MG Tolterodine Tolterodine No 1{capsu QD Tolterodin Tartrate ER Tartrate ER le} e Tartrate 4 MG 4 MG ER 4 MG Hemocyte Hemocyte No 1{capsu QD Hemocyte Plus 106-1 Plus 106-1 le} Plus 106-1 MG MG MG traZODone traZODone No 1{table QD traZODone HCl 100 MG HCl 100 MG t_at_be HCl 100 MG dtime} Leflunomide Leflunomide No 1{table QD Leflunomid 20 MG 20 MG t} e 20 MG Folic Acid Folic Acid No 1{table QD Folic Acid 1 MG 1 MG t} 1 MG Iron 325 Iron 325 No 1{table QD Iron 325 (65 Fe) MG (65 Fe) MG t} (65 Fe) MG Abilify 20 Abilify 20 No 1{table QD Abilify 20 MG MG t} MG Zestoretic Zestoretic No Zestoretic 20-12.5 MG 20-12.5 MG 20-12.5 MG Atorvastati Atorvastati No 1{table QD Atorvastat n Calcium n Calcium t} in Calcium 10 MG 10 MG 10 MG metFORMIN metFORMIN No QD metFORMIN HCl ER 500 HCl ER 500 HCl ER 500 MG MG MG Toujeo Toujeo No BID Toujeo SoloStar SoloStar SoloStar 300u/ml 300u/ml 300u/ml Colace 100 Colace 100 No 1{capsu Colace 100 MG MG le_as_n MG eeded} Omeprazole Omeprazole No 1{capsu QD Omeprazole 40 MG 40 MG le} 40 MG Zestoretic Zestoretic No 1{table QD Zestoretic 20-12.5 MG 20-12.5 MG t} 20-12.5 MG Toujeo Toujeo No Toujeo SoloStar SoloStar SoloStar 300 unit/mL 300 unit/mL 300 unit/mL Zoloft 50 Zoloft 50 No 1{table QD Zoloft 50 MG MG t} MG Savella 50 Savella 50 No 2{table BID Savella 50 MG MG ts} MG ProAir HFA ProAir HFA No 2{puffs QID ProAir HFA 108 (90 108 (90 _as_nee 108 (90 Base) Base) ded} Base) MCG/ACT MCG/ACT MCG/ACT amitriptyli amitriptyli No amitriptyl ne ne ine Breo Breo No 1{puff} QD Breo Ellipta Ellipta Ellipta 200-25 200-25 200-25 MCG/INH MCG/INH MCG/INH Pilocarpine Pilocarpine No 1{table TID Pilocarpin HCl 7.5 MG HCl 7.5 MG t} e HCl 7.5 MG Bydureon 2 Bydureon 2 No Bydureon 2 MG MG MG CeleBREX CeleBREX No 1{capsu QD CeleBREX 200 MG 200 MG le_with 200 MG _food} Cyclobenzap Cyclobenzap No 1{table TID Cyclobenza rine HCl 10 rine HCl 10 t_as_ne anatoliy HCl MG MG eded} 10 MG Baclofen 10 Baclofen 10 No 1{table QD Baclofen MG MG t_as_ne 10 MG eded} Saphris 10 Saphris 10 No 1{table QD Saphris 10 MG MG t_under MG _the_to ngue_an d_allow _to_dis solve} Restasis Restasis No 1{drop_ BID Restasis 0.05 % 0.05 % into_af 0.05 % fected_ eye} Nuvigil Nuvigil No Nuvigil Plaquenil Plaquenil No 1{table QD Plaquenil 200 MG 200 MG t_with_ 200 MG food_or _milk} HumaLOG 100 HumaLOG 100 No HumaLOG UNIT/ML UNIT/ML 100 UNIT/ML guaiFENesin guaiFENesin No 10{ml_a guaiFENesi -Codeine -Codeine s_neede n-Codeine 100-10 100-10 d} 100-10 MG/5ML MG/5ML MG/5ML [place] metFORMIN metFORMIN No QD metFORMIN HCl 1000 MG HCl 1000 MG HCl 1000 MG Vistaril 25 Vistaril 25 No 1{capsu TID Vistaril MG MG le_as_n 25 MG eeded} Gabapentin Gabapentin No 1{capsu Gabapentin 300 MG 300 MG le} 300 MG Tolterodine Tolterodine No 1{capsu QD Tolterodin Tartrate ER Tartrate ER le} e Tartrate 4 MG 4 MG ER 4 MG Hemocyte Hemocyte No 1{capsu QD Hemocyte Plus 106-1 Plus 106-1 le} Plus 106-1 MG MG MG traZODone traZODone No 1{table QD traZODone HCl 100 MG HCl 100 MG t_at_be HCl 100 MG dtime} Leflunomide Leflunomide No 1{table QD Leflunomid 20 MG 20 MG t} e 20 MG Folic Acid Folic Acid No 1{table QD Folic Acid 1 MG 1 MG t} 1 MG Iron 325 Iron 325 No 1{table QD Iron 325 (65 Fe) MG (65 Fe) MG t} (65 Fe) MG Abilify 20 Abilify 20 No 1{table QD Abilify 20 MG MG t} MG Zestoretic Zestoretic No Zestoretic 20-12.5 MG 20-12.5 MG 20-12.5 MG Atorvastati Atorvastati No 1{table QD Atorvastat n Calcium n Calcium t} in Calcium 10 MG 10 MG 10 MG metFORMIN metFORMIN No QD metFORMIN HCl ER 500 HCl ER 500 HCl ER 500 MG MG MG Toujeo Toujeo No BID Toujeo SoloStar SoloStar SoloStar 300u/ml 300u/ml 300u/ml Colace 100 Colace 100 No 1{capsu Colace 100 MG MG le_as_n MG eeded} Omeprazole Omeprazole No 1{capsu QD Omeprazole 40 MG 40 MG le} 40 MG Zestoretic Zestoretic No 1{table QD Zestoretic 20-12.5 MG 20-12.5 MG t} 20-12.5 MG Toujeo Toujeo No Toujeo SoloStar SoloStar SoloStar 300 unit/mL 300 unit/mL 300 unit/mL Zoloft 50 Zoloft 50 No 1{table QD Zoloft 50 MG MG t} MG Savella 50 Savella 50 No 2{table BID Savella 50 MG MG ts} MG ProAir HFA ProAir HFA No 2{puffs QID ProAir HFA 108 (90 108 (90 _as_nee 108 (90 Base) Base) ded} Base) MCG/ACT MCG/ACT MCG/ACT amitriptyli amitriptyli No amitriptyl ne ne ine Breo Breo No 1{puff} QD Breo Ellipta Ellipta Ellipta 200-25 200-25 200-25 MCG/INH MCG/INH MCG/INH Pilocarpine Pilocarpine No 1{table TID Pilocarpin HCl 7.5 MG HCl 7.5 MG t} e HCl 7.5 MG Bydureon 2 Bydureon 2 No Bydureon 2 MG MG MG CeleBREX CeleBREX No 1{capsu QD CeleBREX 200 MG 200 MG le_with 200 MG _food} Cyclobenzap Cyclobenzap No 1{table TID Cyclobenza rine HCl 10 rine HCl 10 t_as_ne anatoliy HCl MG MG eded} 10 MG Baclofen 10 Baclofen 10 No 1{table QD Baclofen MG MG t_as_ne 10 MG eded} Saphris 10 Saphris 10 No 1{table QD Saphris 10 MG MG t_under MG _the_to ngue_an d_allow _to_dis solve} Restasis Restasis No 1{drop_ BID Restasis 0.05 % 0.05 % into_af 0.05 % fected_ eye} Nuvigil Nuvigil No Nuvigil Plaquenil Plaquenil No 1{table QD Plaquenil 200 MG 200 MG t_with_ 200 MG food_or _milk} HumaLOG 100 HumaLOG 100 No HumaLOG UNIT/ML UNIT/ML 100 UNIT/ML guaiFENesin guaiFENesin No 10{ml_a guaiFENesi -Codeine -Codeine s_neede n-Codeine 100-10 100-10 d} 100-10 MG/5ML MG/5ML MG/5ML [place] metFORMIN metFORMIN No QD metFORMIN HCl 1000 MG HCl 1000 MG HCl 1000 MG Vistaril 25 Vistaril 25 No 1{capsu TID Vistaril MG MG le_as_n 25 MG eeded} Gabapentin Gabapentin No 1{capsu Gabapentin 300 MG 300 MG le} 300 MG Tolterodine Tolterodine No 1{capsu QD Tolterodin Tartrate ER Tartrate ER le} e Tartrate 4 MG 4 MG ER 4 MG Hemocyte Hemocyte No 1{capsu QD Hemocyte Plus 106-1 Plus 106-1 le} Plus 106-1 MG MG MG traZODone traZODone No 1{table QD traZODone HCl 100 MG HCl 100 MG t_at_be HCl 100 MG dtime} Leflunomide Leflunomide No 1{table QD Leflunomid 20 MG 20 MG t} e 20 MG Folic Acid Folic Acid No 1{table QD Folic Acid 1 MG 1 MG t} 1 MG Iron 325 Iron 325 No 1{table QD Iron 325 (65 Fe) MG (65 Fe) MG t} (65 Fe) MG Abilify 20 Abilify 20 No 1{table QD Abilify 20 MG MG t} MG Zestoretic Zestoretic No Zestoretic 20-12.5 MG 20-12.5 MG 20-12.5 MG Atorvastati Atorvastati No 1{table QD Atorvastat n Calcium n Calcium t} in Calcium 10 MG 10 MG 10 MG metFORMIN metFORMIN No QD metFORMIN HCl ER 500 HCl ER 500 HCl ER 500 MG MG MG Toujeo Toujeo No BID Toujeo SoloStar SoloStar SoloStar 300u/ml 300u/ml 300u/ml Colace 100 Colace 100 No 1{capsu Colace 100 MG MG le_as_n MG eeded} Omeprazole Omeprazole No 1{capsu QD Omeprazole 40 MG 40 MG le} 40 MG Zestoretic Zestoretic No 1{table QD Zestoretic 20-12.5 MG 20-12.5 MG t} 20-12.5 MG Hemocyte Hemocyte No 1{capsu QD Hemocyte Plus 106-1 Plus 106-1 le} Plus 106-1 MG MG MG Zestoretic Zestoretic No 1{table QD Zestoretic 20-12.5 MG 20-12.5 MG t} 20-12.5 MG Leflunomide Leflunomide No 1{table QD Leflunomid 20 MG 20 MG t} e 20 MG Iron 325 Iron 325 No 1{table QD Iron 325 (65 Fe) MG (65 Fe) MG t} (65 Fe) MG Lipoic Acid Lipoic Acid No Lipoic 150 MG 150 MG Acid 150 MG Tresiba Tresiba No Tresiba FlexTouch FlexTouch FlexTouch 200 UNIT/ML 200 UNIT/ML 200 UNIT/ML Gabapentin Gabapentin No 2{table BID Gabapentin 600 MG 600 MG ts} 600 MG Plaquenil Plaquenil No 1{table QD Plaquenil 200 MG 200 MG t_with_ 200 MG food_or _milk} Folic Acid Folic Acid No 1{table QD Folic Acid 1 MG 1 MG t} 1 MG CeleBREX CeleBREX No 1{capsu QD CeleBREX 200 MG 200 MG le_with 200 MG _food} Omeprazole Omeprazole No 1{capsu QD Omeprazole 40 MG 40 MG le} 40 MG Tolterodine Tolterodine No 1{capsu QD Tolterodin Tartrate ER Tartrate ER le} e Tartrate 4 MG 4 MG ER 4 MG Pilocarpine Pilocarpine No 1{table TID Pilocarpin HCl 7.5 MG HCl 7.5 MG t} e HCl 7.5 MG Ozempic Ozempic No Ozempic (0.25 or (0.25 or (0.25 or 0.5 0.5 0.5 MG/DOSE) 2 MG/DOSE) 2 MG/DOSE) 2 MG/1.5ML MG/1.5ML MG/1.5ML Atorvastati Atorvastati No 1{table QD Atorvastat n Calcium n Calcium t} in Calcium 10 MG 10 MG 10 MG Cyclobenzap Cyclobenzap No 1{table TID Cyclobenza rine HCl 10 rine HCl 10 t_as_ne anatoliy HCl MG MG eded} 10 MG ProAir HFA ProAir HFA No 2{puffs QID ProAir HFA 108 (90 108 (90 _as_nee 108 (90 Base) Base) ded} Base) MCG/ACT MCG/ACT MCG/ACT Restasis Restasis No 1{drop_ BID Restasis 0.05 % 0.05 % into_af 0.05 % fected_ eye} Vistaril 25 Vistaril 25 No 1{capsu TID Vistaril MG MG le_as_n 25 MG eeded} Breo Breo No 1{puff} QD Breo Ellipta Ellipta Ellipta 200-25 200-25 200-25 MCG/INH MCG/INH MCG/INH Toujeo Toujeo No QD Toujeo SoloStar SoloStar SoloStar 300u/ml 300u/ml 300u/ml Hemocyte Hemocyte No 1{capsu QD Hemocyte Plus 106-1 Plus 106-1 le} Plus 106-1 MG MG MG Omeprazole Omeprazole No 1{capsu QD Omeprazole 40 MG 40 MG le} 40 MG Zoloft 50 Zoloft 50 No 1{table QD Zoloft 50 MG MG t} MG Abilify 20 Abilify 20 No 1{table QD Abilify 20 MG MG t} MG guaiFENesin guaiFENesin No 10{ml_a guaiFENesi -Codeine -Codeine s_neede n-Codeine 100-10 100-10 d} 100-10 MG/5ML MG/5ML MG/5ML traZODone traZODone No 1{table QD traZODone HCl 100 MG HCl 100 MG t_at_be HCl 100 MG dtime} Bydureon 2 Bydureon 2 No Bydureon 2 MG MG MG Zestoretic Zestoretic No 1{table QD Zestoretic 20-12.5 MG 20-12.5 MG t} 20-12.5 MG HumaLOG 100 HumaLOG 100 No HumaLOG UNIT/ML UNIT/ML 100 UNIT/ML Colace 100 Colace 100 No 1{capsu Colace 100 MG MG le_as_n MG eeded} metFORMIN metFORMIN No QD metFORMIN HCl ER 500 HCl ER 500 HCl ER 500 MG MG MG Savella 50 Savella 50 No 2{table BID Savella 50 MG MG ts} MG Zestoretic Zestoretic No Zestoretic 20-12.5 MG 20-12.5 MG 20-12.5 MG Atorvastati Atorvastati No 1{table QD Atorvastat n Calcium n Calcium t} in Calcium 10 MG 10 MG 10 MG Saphris 10 Saphris 10 No 1{table QD Saphris 10 MG MG t_under MG _the_to ngue_an d_allow _to_dis solve} metFORMIN metFORMIN No QD metFORMIN HCl 1000 MG HCl 1000 MG HCl 1000 MG Leflunomide Leflunomide No 1{table QD Leflunomid 20 MG 20 MG t} e 20 MG Tolterodine Tolterodine No 1{capsu QD Tolterodin Tartrate ER Tartrate ER le} e Tartrate 4 MG 4 MG ER 4 MG Iron 325 Iron 325 No 1{table QD Iron 325 (65 Fe) MG (65 Fe) MG t} (65 Fe) MG Gabapentin Gabapentin No 1{capsu Gabapentin 300 MG 300 MG le} 300 MG CeleBREX CeleBREX No 1{capsu QD CeleBREX 200 MG 200 MG le_with 200 MG _food} Folic Acid Folic Acid No 1{table QD Folic Acid 1 MG 1 MG t} 1 MG Plaquenil Plaquenil No 1{table QD Plaquenil 200 MG 200 MG t_with_ 200 MG food_or _milk} Cyclobenzap Cyclobenzap No 1{table TID Cyclobenza rine HCl 10 rine HCl 10 t_as_ne anatoliy HCl MG MG eded} 10 MG Pilocarpine Pilocarpine No 1{table TID Pilocarpin HCl 7.5 MG HCl 7.5 MG t} e HCl 7.5 MG ProAir HFA ProAir HFA No 2{puffs QID ProAir HFA 108 (90 108 (90 _as_nee 108 (90 Base) Base) ded} Base) MCG/ACT MCG/ACT MCG/ACT Restasis Restasis No 1{drop_ BID Restasis 0.05 % 0.05 % into_af 0.05 % fected_ eye} Vistaril 25 Vistaril 25 No 1{capsu TID Vistaril MG MG le_as_n 25 MG eeded} Breo Breo No 1{puff} QD Breo Ellipta Ellipta Ellipta 200-25 200-25 200-25 MCG/INH MCG/INH MCG/INH Toujeo Toujeo No QD Toujeo SoloStar SoloStar SoloStar 300u/ml 300u/ml 300u/ml Hemocyte Hemocyte No 1{capsu QD Hemocyte Plus 106-1 Plus 106-1 le} Plus 106-1 MG MG MG Omeprazole Omeprazole No 1{capsu QD Omeprazole 40 MG 40 MG le} 40 MG Zoloft 50 Zoloft 50 No 1{table QD Zoloft 50 MG MG t} MG Abilify 20 Abilify 20 No 1{table QD Abilify 20 MG MG t} MG guaiFENesin guaiFENesin No 10{ml_a guaiFENesi -Codeine -Codeine s_neede n-Codeine 100-10 100-10 d} 100-10 MG/5ML MG/5ML MG/5ML traZODone traZODone No 1{table QD traZODone HCl 100 MG HCl 100 MG t_at_be HCl 100 MG dtime} Bydureon 2 Bydureon 2 No Bydureon 2 MG MG MG Zestoretic Zestoretic No 1{table QD Zestoretic 20-12.5 MG 20-12.5 MG t} 20-12.5 MG HumaLOG 100 HumaLOG 100 No HumaLOG UNIT/ML UNIT/ML 100 UNIT/ML Colace 100 Colace 100 No 1{capsu Colace 100 MG MG le_as_n MG eeded} metFORMIN metFORMIN No QD metFORMIN HCl ER 500 HCl ER 500 HCl ER 500 MG MG MG Savella 50 Savella 50 No 2{table BID Savella 50 MG MG ts} MG Zestoretic Zestoretic No Zestoretic 20-12.5 MG 20-12.5 MG 20-12.5 MG Atorvastati Atorvastati No 1{table QD Atorvastat n Calcium n Calcium t} in Calcium 10 MG 10 MG 10 MG Saphris 10 Saphris 10 No 1{table QD Saphris 10 MG MG t_under MG _the_to ngue_an d_allow _to_dis solve} metFORMIN metFORMIN No QD metFORMIN HCl 1000 MG HCl 1000 MG HCl 1000 MG Leflunomide Leflunomide No 1{table QD Leflunomid 20 MG 20 MG t} e 20 MG Tolterodine Tolterodine No 1{capsu QD Tolterodin Tartrate ER Tartrate ER le} e Tartrate 4 MG 4 MG ER 4 MG Iron 325 Iron 325 No 1{table QD Iron 325 (65 Fe) MG (65 Fe) MG t} (65 Fe) MG Gabapentin Gabapentin No 1{capsu Gabapentin 300 MG 300 MG le} 300 MG CeleBREX CeleBREX No 1{capsu QD CeleBREX 200 MG 200 MG le_with 200 MG _food} Folic Acid Folic Acid No 1{table QD Folic Acid 1 MG 1 MG t} 1 MG Plaquenil Plaquenil No 1{table QD Plaquenil 200 MG 200 MG t_with_ 200 MG food_or _milk} Cyclobenzap Cyclobenzap No 1{table TID Cyclobenza rine HCl 10 rine HCl 10 t_as_ne anatoliy HCl MG MG eded} 10 MG Pilocarpine Pilocarpine No 1{table TID Pilocarpin HCl 7.5 MG HCl 7.5 MG t} e HCl 7.5 MG ProAir HFA ProAir HFA No 2{puffs QID ProAir HFA 108 (90 108 (90 _as_nee 108 (90 Base) Base) ded} Base) MCG/ACT MCG/ACT MCG/ACT Restasis Restasis No 1{drop_ BID Restasis 0.05 % 0.05 % into_af 0.05 % fected_ eye} Vistaril 25 Vistaril 25 No 1{capsu TID Vistaril MG MG le_as_n 25 MG eeded} Breo Breo No 1{puff} QD Breo Ellipta Ellipta Ellipta 200-25 200-25 200-25 MCG/INH MCG/INH MCG/INH Toujeo Toujeo No QD Toujeo SoloStar SoloStar SoloStar 300u/ml 300u/ml 300u/ml Hemocyte Hemocyte No 1{capsu QD Hemocyte Plus 106-1 Plus 106-1 le} Plus 106-1 MG MG MG Omeprazole Omeprazole No 1{capsu QD Omeprazole 40 MG 40 MG le} 40 MG Zoloft 50 Zoloft 50 No 1{table QD Zoloft 50 MG MG t} MG Abilify 20 Abilify 20 No 1{table QD Abilify 20 MG MG t} MG guaiFENesin guaiFENesin No 10{ml_a guaiFENesi -Codeine -Codeine s_neede n-Codeine 100-10 100-10 d} 100-10 MG/5ML MG/5ML MG/5ML traZODone traZODone No 1{table QD traZODone HCl 100 MG HCl 100 MG t_at_be HCl 100 MG dtime} Bydureon 2 Bydureon 2 No Bydureon 2 MG MG MG Zestoretic Zestoretic No 1{table QD Zestoretic 20-12.5 MG 20-12.5 MG t} 20-12.5 MG HumaLOG 100 HumaLOG 100 No HumaLOG UNIT/ML UNIT/ML 100 UNIT/ML Colace 100 Colace 100 No 1{capsu Colace 100 MG MG le_as_n MG eeded} metFORMIN metFORMIN No QD metFORMIN HCl ER 500 HCl ER 500 HCl ER 500 MG MG MG Savella 50 Savella 50 No 2{table BID Savella 50 MG MG ts} MG Zestoretic Zestoretic No Zestoretic 20-12.5 MG 20-12.5 MG 20-12.5 MG Atorvastati Atorvastati No 1{table QD Atorvastat n Calcium n Calcium t} in Calcium 10 MG 10 MG 10 MG Saphris 10 Saphris 10 No 1{table QD Saphris 10 MG MG t_under MG _the_to ngue_an d_allow _to_dis solve} metFORMIN metFORMIN No QD metFORMIN HCl 1000 MG HCl 1000 MG HCl 1000 MG Leflunomide Leflunomide No 1{table QD Leflunomid 20 MG 20 MG t} e 20 MG Tolterodine Tolterodine No 1{capsu QD Tolterodin Tartrate ER Tartrate ER le} e Tartrate 4 MG 4 MG ER 4 MG Iron 325 Iron 325 No 1{table QD Iron 325 (65 Fe) MG (65 Fe) MG t} (65 Fe) MG Gabapentin Gabapentin No 1{capsu Gabapentin 300 MG 300 MG le} 300 MG CeleBREX CeleBREX No 1{capsu QD CeleBREX 200 MG 200 MG le_with 200 MG _food} Folic Acid Folic Acid No 1{table QD Folic Acid 1 MG 1 MG t} 1 MG Plaquenil Plaquenil No 1{table QD Plaquenil 200 MG 200 MG t_with_ 200 MG food_or _milk} Cyclobenzap Cyclobenzap No 1{table TID Cyclobenza rine HCl 10 rine HCl 10 t_as_ne anatoliy HCl MG MG eded} 10 MG Pilocarpine Pilocarpine No 1{table TID Pilocarpin HCl 7.5 MG HCl 7.5 MG t} e HCl 7.5 MG ProAir HFA ProAir HFA No 2{puffs QID ProAir HFA 108 (90 108 (90 _as_nee 108 (90 Base) Base) ded} Base) MCG/ACT MCG/ACT MCG/ACT Restasis Restasis No 1{drop_ BID Restasis 0.05 % 0.05 % into_af 0.05 % fected_ eye} traZODone traZODone No 1{table QD traZODone HCl 100 MG HCl 100 MG t_at_be HCl 100 MG dtime} Breo Breo No 1{puff} QD Breo Ellipta Ellipta Ellipta 200-25 200-25 200-25 MCG/INH MCG/INH MCG/INH Toujeo Toujeo No QD Toujeo SoloStar SoloStar SoloStar 300u/ml 300u/ml 300u/ml Vistaril 25 Vistaril 25 No 1{capsu TID Vistaril MG MG le_as_n 25 MG eeded} Omeprazole Omeprazole No 1{capsu QD Omeprazole 40 MG 40 MG le} 40 MG Zoloft 50 Zoloft 50 No 1{table QD Zoloft 50 MG MG t} MG Abilify 20 Abilify 20 No 1{table QD Abilify 20 MG MG t} MG guaiFENesin guaiFENesin No 10{ml_a guaiFENesi -Codeine -Codeine s_neede n-Codeine 100-10 100-10 d} 100-10 MG/5ML MG/5ML MG/5ML HumaLOG 100 HumaLOG 100 No HumaLOG UNIT/ML UNIT/ML 100 UNIT/ML Zestoretic Zestoretic No 1{table QD Zestoretic 20-12.5 MG 20-12.5 MG t} 20-12.5 MG Bydureon 2 Bydureon 2 No Bydureon 2 MG MG MG Iron 325 Iron 325 No 1{table QD Iron 325 (65 Fe) MG (65 Fe) MG t} (65 Fe) MG Colace 100 Colace 100 No 1{capsu Colace 100 MG MG le_as_n MG eeded} metFORMIN metFORMIN No QD metFORMIN HCl ER 500 HCl ER 500 HCl ER 500 MG MG MG Savella 50 Savella 50 No 2{table BID Savella 50 MG MG ts} MG Zestoretic Zestoretic No Zestoretic 20-12.5 MG 20-12.5 MG 20-12.5 MG Atorvastati Atorvastati No 1{table QD Atorvastat n Calcium n Calcium t} in Calcium 10 MG 10 MG 10 MG Saphris 10 Saphris 10 No 1{table QD Saphris 10 MG MG t_under MG _the_to ngue_an d_allow _to_dis solve} metFORMIN metFORMIN No QD metFORMIN HCl 1000 MG HCl 1000 MG HCl 1000 MG Leflunomide Leflunomide No 1{table QD Leflunomid 20 MG 20 MG t} e 20 MG Tolterodine Tolterodine No 1{capsu QD Tolterodin Tartrate ER Tartrate ER le} e Tartrate 4 MG 4 MG ER 4 MG Hemocyte Hemocyte No 1{capsu QD Hemocyte Plus 106-1 Plus 106-1 le} Plus 106-1 MG MG MG Gabapentin Gabapentin No 1{capsu Gabapentin 300 MG 300 MG le} 300 MG CeleBREX CeleBREX No 1{capsu QD CeleBREX 200 MG 200 MG le_with 200 MG _food} Folic Acid Folic Acid No 1{table QD Folic Acid 1 MG 1 MG t} 1 MG Plaquenil Plaquenil No 1{table QD Plaquenil 200 MG 200 MG t_with_ 200 MG food_or _milk} Cyclobenzap Cyclobenzap No 1{table TID Cyclobenza rine HCl 10 rine HCl 10 t_as_ne anatoliy HCl MG MG eded} 10 MG Pilocarpine Pilocarpine No 1{table TID Pilocarpin HCl 7.5 MG HCl 7.5 MG t} e HCl 7.5 MG Hemocyte Hemocyte No 1{capsu QD Hemocyte Plus 106-1 Plus 106-1 le} Plus 106-1 MG MG MG Plaquenil Plaquenil No 1{table QD Plaquenil 200 MG 200 MG t_with_ 200 MG food_or _milk} traZODone traZODone No 1{table QD traZODone HCl 100 MG HCl 100 MG t_at_be HCl 100 MG dtime} Pilocarpine Pilocarpine No 1{table TID Pilocarpin HCl 7.5 MG HCl 7.5 MG t} e HCl 7.5 MG Savella 50 Savella 50 No 2{table BID Savella 50 MG MG ts} MG Tolterodine Tolterodine No 1{capsu QD Tolterodin Tartrate ER Tartrate ER le} e Tartrate 4 MG 4 MG ER 4 MG Atorvastati Atorvastati No 1{table QD Atorvastat n Calcium n Calcium t} in Calcium 10 MG 10 MG 10 MG Abilify 20 Abilify 20 No 1{table QD Abilify 20 MG MG t} MG Iron 325 Iron 325 No 1{table QD Iron 325 (65 Fe) MG (65 Fe) MG t} (65 Fe) MG Omeprazole Omeprazole No 1{capsu QD Omeprazole 40 MG 40 MG le} 40 MG Vistaril 25 Vistaril 25 No 1{capsu TID Vistaril MG MG le_as_n 25 MG eeded} Zestoretic Zestoretic No 1{table QD Zestoretic 20-12.5 MG 20-12.5 MG t} 20-12.5 MG Leflunomide Leflunomide No 1{table QD Leflunomid 20 MG 20 MG t} e 20 MG CeleBREX CeleBREX No 1{capsu QD CeleBREX 200 MG 200 MG le_with 200 MG _food} Cyclobenzap Cyclobenzap No 1{table TID Cyclobenza rine HCl 10 rine HCl 10 t_as_ne anatoliy HCl MG MG eded} 10 MG Folic Acid Folic Acid No 1{table QD Folic Acid 1 MG 1 MG t} 1 MG Hemocyte Hemocyte No 1{capsu QD Hemocyte Plus 106-1 Plus 106-1 le} Plus 106-1 MG MG MG Plaquenil Plaquenil No 1{table QD Plaquenil 200 MG 200 MG t_with_ 200 MG food_or _milk} traZODone traZODone No 1{table QD traZODone HCl 100 MG HCl 100 MG t_at_be HCl 100 MG dtime} Pilocarpine Pilocarpine No 1{table TID Pilocarpin HCl 7.5 MG HCl 7.5 MG t} e HCl 7.5 MG Savella 50 Savella 50 No 2{table BID Savella 50 MG MG ts} MG Tolterodine Tolterodine No 1{capsu QD Tolterodin Tartrate ER Tartrate ER le} e Tartrate 4 MG 4 MG ER 4 MG Atorvastati Atorvastati No 1{table QD Atorvastat n Calcium n Calcium t} in Calcium 10 MG 10 MG 10 MG Abilify 20 Abilify 20 No 1{table QD Abilify 20 MG MG t} MG Iron 325 Iron 325 No 1{table QD Iron 325 (65 Fe) MG (65 Fe) MG t} (65 Fe) MG Omeprazole Omeprazole No 1{capsu QD Omeprazole 40 MG 40 MG le} 40 MG Vistaril 25 Vistaril 25 No 1{capsu TID Vistaril MG MG le_as_n 25 MG eeded} Zestoretic Zestoretic No 1{table QD Zestoretic 20-12.5 MG 20-12.5 MG t} 20-12.5 MG Leflunomide Leflunomide No 1{table QD Leflunomid 20 MG 20 MG t} e 20 MG CeleBREX CeleBREX No 1{capsu QD CeleBREX 200 MG 200 MG le_with 200 MG _food} Cyclobenzap Cyclobenzap No 1{table TID Cyclobenza rine HCl 10 rine HCl 10 t_as_ne anatoliy HCl MG MG eded} 10 MG Folic Acid Folic Acid No 1{table QD Folic Acid 1 MG 1 MG t} 1 MG Hemocyte Hemocyte No 1{capsu QD Hemocyte Plus 106-1 Plus 106-1 le} Plus 106-1 MG MG MG Plaquenil Plaquenil No 1{table QD Plaquenil 200 MG 200 MG t_with_ 200 MG food_or _milk} traZODone traZODone No 1{table QD traZODone HCl 100 MG HCl 100 MG t_at_be HCl 100 MG dtime} Pilocarpine Pilocarpine No 1{table TID Pilocarpin HCl 7.5 MG HCl 7.5 MG t} e HCl 7.5 MG Savella 50 Savella 50 No 2{table BID Savella 50 MG MG ts} MG Tolterodine Tolterodine No 1{capsu QD Tolterodin Tartrate ER Tartrate ER le} e Tartrate 4 MG 4 MG ER 4 MG Atorvastati Atorvastati No 1{table QD Atorvastat n Calcium n Calcium t} in Calcium 10 MG 10 MG 10 MG Abilify 20 Abilify 20 No 1{table QD Abilify 20 MG MG t} MG Iron 325 Iron 325 No 1{table QD Iron 325 (65 Fe) MG (65 Fe) MG t} (65 Fe) MG Omeprazole Omeprazole No 1{capsu QD Omeprazole 40 MG 40 MG le} 40 MG Vistaril 25 Vistaril 25 No 1{capsu TID Vistaril MG MG le_as_n 25 MG eeded} Zestoretic Zestoretic No 1{table QD Zestoretic 20-12.5 MG 20-12.5 MG t} 20-12.5 MG Leflunomide Leflunomide No 1{table QD Leflunomid 20 MG 20 MG t} e 20 MG CeleBREX CeleBREX No 1{capsu QD CeleBREX 200 MG 200 MG le_with 200 MG _food} Cyclobenzap Cyclobenzap No 1{table TID Cyclobenza rine HCl 10 rine HCl 10 t_as_ne anatoliy HCl MG MG eded} 10 MG Folic Acid Folic Acid No 1{table QD Folic Acid 1 MG 1 MG t} 1 MG Hemocyte Hemocyte No 1{capsu QD Hemocyte Plus 106-1 Plus 106-1 le} Plus 106-1 MG MG MG Zestoretic Zestoretic No 1{table QD Zestoretic 20-12.5 MG 20-12.5 MG t} 20-12.5 MG Toujeo Toujeo No BID Toujeo SoloStar SoloStar SoloStar 300u/ml 300u/ml 300u/ml Saphris 10 Saphris 10 No 1{table QD Saphris 10 MG MG t_under MG _the_to ngue_an d_allow _to_dis solve} Vistaril 25 Vistaril 25 No 1{capsu TID Vistaril MG MG le_as_n 25 MG eeded} Atorvastati Atorvastati No 1{table QD Atorvastat n Calcium n Calcium t} in Calcium 10 MG 10 MG 10 MG traZODone traZODone No 1{table QD traZODone HCl 100 MG HCl 100 MG t_at_be HCl 100 MG dtime} HumaLOG 100 HumaLOG 100 No HumaLOG UNIT/ML UNIT/ML 100 UNIT/ML Colace 100 Colace 100 No 1{capsu Colace 100 MG MG le_as_n MG eeded} Breo Breo No 1{puff} QD Breo Ellipta Ellipta Ellipta 200-25 200-25 200-25 MCG/INH MCG/INH MCG/INH Zoloft 50 Zoloft 50 No 1{table QD Zoloft 50 MG MG t} MG Iron 325 Iron 325 No 1{table QD Iron 325 (65 Fe) MG (65 Fe) MG t} (65 Fe) MG guaiFENesin guaiFENesin No 10{ml_a guaiFENesi -Codeine -Codeine s_neede n-Codeine 100-10 100-10 d} 100-10 MG/5ML MG/5ML MG/5ML Zestoretic Zestoretic No Zestoretic 20-12.5 MG 20-12.5 MG 20-12.5 MG Bydureon 2 Bydureon 2 No Bydureon 2 MG MG MG Gabapentin Gabapentin No 1{capsu Gabapentin 300 MG 300 MG le} 300 MG Folic Acid Folic Acid No 1{table QD Folic Acid 1 MG 1 MG t} 1 MG Abilify 20 Abilify 20 No 1{table QD Abilify 20 MG MG t} MG [place] Plaquenil Plaquenil No 1{table QD Plaquenil 200 MG 200 MG t_with_ 200 MG food_or _milk} Restasis Restasis No 1{drop_ BID Restasis 0.05 % 0.05 % into_af 0.05 % fected_ eye} Nuvigil Nuvigil No Nuvigil Tolterodine Tolterodine No 1{capsu QD Tolterodin Tartrate ER Tartrate ER le} e Tartrate 4 MG 4 MG ER 4 MG Omeprazole Omeprazole No 1{capsu QD Omeprazole 40 MG 40 MG le} 40 MG Leflunomide Leflunomide No 1{table QD Leflunomid 20 MG 20 MG t} e 20 MG Cyclobenzap Cyclobenzap No 1{table TID Cyclobenza rine HCl 10 rine HCl 10 t_as_ne anatoliy HCl MG MG eded} 10 MG ProAir HFA ProAir HFA No 2{puffs QID ProAir HFA 108 (90 108 (90 _as_nee 108 (90 Base) Base) ded} Base) MCG/ACT MCG/ACT MCG/ACT amitriptyli amitriptyli No amitriptyl ne ne ine Pilocarpine Pilocarpine No 1{table TID Pilocarpin HCl 7.5 MG HCl 7.5 MG t} e HCl 7.5 MG Savella 50 Savella 50 No 2{table BID Savella 50 MG MG ts} MG metFORMIN metFORMIN No QD metFORMIN HCl ER 500 HCl ER 500 HCl ER 500 MG MG MG metFORMIN metFORMIN No QD metFORMIN HCl 1000 MG HCl 1000 MG HCl 1000 MG CeleBREX CeleBREX No 1{capsu QD CeleBREX 200 MG 200 MG le_with 200 MG _food} Hemocyte Hemocyte No 1{capsu QD Hemocyte Plus 106-1 Plus 106-1 le} Plus 106-1 MG MG MG Zestoretic Zestoretic No 1{table QD Zestoretic 20-12.5 MG 20-12.5 MG t} 20-12.5 MG Toujeo Toujeo No BID Toujeo SoloStar SoloStar SoloStar 300u/ml 300u/ml 300u/ml Saphris 10 Saphris 10 No 1{table QD Saphris 10 MG MG t_under MG _the_to ngue_an d_allow _to_dis solve} Vistaril 25 Vistaril 25 No 1{capsu TID Vistaril MG MG le_as_n 25 MG eeded} Atorvastati Atorvastati No 1{table QD Atorvastat n Calcium n Calcium t} in Calcium 10 MG 10 MG 10 MG traZODone traZODone No 1{table QD traZODone HCl 100 MG HCl 100 MG t_at_be HCl 100 MG dtime} HumaLOG 100 HumaLOG 100 No HumaLOG UNIT/ML UNIT/ML 100 UNIT/ML Colace 100 Colace 100 No 1{capsu Colace 100 MG MG le_as_n MG eeded} Breo Breo No 1{puff} QD Breo Ellipta Ellipta Ellipta 200-25 200-25 200-25 MCG/INH MCG/INH MCG/INH Zoloft 50 Zoloft 50 No 1{table QD Zoloft 50 MG MG t} MG Iron 325 Iron 325 No 1{table QD Iron 325 (65 Fe) MG (65 Fe) MG t} (65 Fe) MG guaiFENesin guaiFENesin No 10{ml_a guaiFENesi -Codeine -Codeine s_neede n-Codeine 100-10 100-10 d} 100-10 MG/5ML MG/5ML MG/5ML Zestoretic Zestoretic No Zestoretic 20-12.5 MG 20-12.5 MG 20-12.5 MG Bydureon 2 Bydureon 2 No Bydureon 2 MG MG MG Gabapentin Gabapentin No 1{capsu Gabapentin 300 MG 300 MG le} 300 MG Folic Acid Folic Acid No 1{table QD Folic Acid 1 MG 1 MG t} 1 MG Abilify 20 Abilify 20 No 1{table QD Abilify 20 MG MG t} MG [place] Plaquenil Plaquenil No 1{table QD Plaquenil 200 MG 200 MG t_with_ 200 MG food_or _milk} Restasis Restasis No 1{drop_ BID Restasis 0.05 % 0.05 % into_af 0.05 % fected_ eye} Nuvigil Nuvigil No Nuvigil Tolterodine Tolterodine No 1{capsu QD Tolterodin Tartrate ER Tartrate ER le} e Tartrate 4 MG 4 MG ER 4 MG Omeprazole Omeprazole No 1{capsu QD Omeprazole 40 MG 40 MG le} 40 MG Leflunomide Leflunomide No 1{table QD Leflunomid 20 MG 20 MG t} e 20 MG Cyclobenzap Cyclobenzap No 1{table TID Cyclobenza rine HCl 10 rine HCl 10 t_as_ne anatoliy HCl MG MG eded} 10 MG ProAir HFA ProAir HFA No 2{puffs QID ProAir HFA 108 (90 108 (90 _as_nee 108 (90 Base) Base) ded} Base) MCG/ACT MCG/ACT MCG/ACT amitriptyli amitriptyli No amitriptyl ne ne ine Pilocarpine Pilocarpine No 1{table TID Pilocarpin HCl 7.5 MG HCl 7.5 MG t} e HCl 7.5 MG Savella 50 Savella 50 No 2{table BID Savella 50 MG MG ts} MG metFORMIN metFORMIN No QD metFORMIN HCl ER 500 HCl ER 500 HCl ER 500 MG MG MG metFORMIN metFORMIN No QD metFORMIN HCl 1000 MG HCl 1000 MG HCl 1000 MG CeleBREX CeleBREX No 1{capsu QD CeleBREX 200 MG 200 MG le_with 200 MG _food} Hemocyte Hemocyte No 1{capsu QD Hemocyte Plus 106-1 Plus 106-1 le} Plus 106-1 MG MG MG Zestoretic Zestoretic No 1{table QD Zestoretic 20-12.5 MG 20-12.5 MG t} 20-12.5 MG Toujeo Toujeo No BID Toujeo SoloStar SoloStar SoloStar 300u/ml 300u/ml 300u/ml Saphris 10 Saphris 10 No 1{table QD Saphris 10 MG MG t_under MG _the_to ngue_an d_allow _to_dis solve} Vistaril 25 Vistaril 25 No 1{capsu TID Vistaril MG MG le_as_n 25 MG eeded} Atorvastati Atorvastati No 1{table QD Atorvastat n Calcium n Calcium t} in Calcium 10 MG 10 MG 10 MG traZODone traZODone No 1{table QD traZODone HCl 100 MG HCl 100 MG t_at_be HCl 100 MG dtime} HumaLOG 100 HumaLOG 100 No HumaLOG UNIT/ML UNIT/ML 100 UNIT/ML Colace 100 Colace 100 No 1{capsu Colace 100 MG MG le_as_n MG eeded} Breo Breo No 1{puff} QD Breo Ellipta Ellipta Ellipta 200-25 200-25 200-25 MCG/INH MCG/INH MCG/INH Zoloft 50 Zoloft 50 No 1{table QD Zoloft 50 MG MG t} MG Iron 325 Iron 325 No 1{table QD Iron 325 (65 Fe) MG (65 Fe) MG t} (65 Fe) MG guaiFENesin guaiFENesin No 10{ml_a guaiFENesi -Codeine -Codeine s_neede n-Codeine 100-10 100-10 d} 100-10 MG/5ML MG/5ML MG/5ML Zestoretic Zestoretic No Zestoretic 20-12.5 MG 20-12.5 MG 20-12.5 MG Bydureon 2 Bydureon 2 No Bydureon 2 MG MG MG Gabapentin Gabapentin No 1{capsu Gabapentin 300 MG 300 MG le} 300 MG Folic Acid Folic Acid No 1{table QD Folic Acid 1 MG 1 MG t} 1 MG Abilify 20 Abilify 20 No 1{table QD Abilify 20 MG MG t} MG [place] Plaquenil Plaquenil No 1{table QD Plaquenil 200 MG 200 MG t_with_ 200 MG food_or _milk} Restasis Restasis No 1{drop_ BID Restasis 0.05 % 0.05 % into_af 0.05 % fected_ eye} Nuvigil Nuvigil No Nuvigil Tolterodine Tolterodine No 1{capsu QD Tolterodin Tartrate ER Tartrate ER le} e Tartrate 4 MG 4 MG ER 4 MG Omeprazole Omeprazole No 1{capsu QD Omeprazole 40 MG 40 MG le} 40 MG Leflunomide Leflunomide No 1{table QD Leflunomid 20 MG 20 MG t} e 20 MG Cyclobenzap Cyclobenzap No 1{table TID Cyclobenza rine HCl 10 rine HCl 10 t_as_ne anatoliy HCl MG MG eded} 10 MG ProAir HFA ProAir HFA No 2{puffs QID ProAir HFA 108 (90 108 (90 _as_nee 108 (90 Base) Base) ded} Base) MCG/ACT MCG/ACT MCG/ACT amitriptyli amitriptyli No amitriptyl ne ne ine Pilocarpine Pilocarpine No 1{table TID Pilocarpin HCl 7.5 MG HCl 7.5 MG t} e HCl 7.5 MG Savella 50 Savella 50 No 2{table BID Savella 50 MG MG ts} MG metFORMIN metFORMIN No QD metFORMIN HCl ER 500 HCl ER 500 HCl ER 500 MG MG MG metFORMIN metFORMIN No QD metFORMIN HCl 1000 MG HCl 1000 MG HCl 1000 MG CeleBREX CeleBREX No 1{capsu QD CeleBREX 200 MG 200 MG le_with 200 MG _food} Hemocyte Hemocyte No 1{capsu QD Hemocyte Plus 106-1 Plus 106-1 le} Plus 106-1 MG MG MG Zestoretic Zestoretic No 1{table QD Zestoretic 20-12.5 MG 20-12.5 MG t} 20-12.5 MG Toujeo Toujeo No BID Toujeo SoloStar SoloStar SoloStar 300u/ml 300u/ml 300u/ml Saphris 10 Saphris 10 No 1{table QD Saphris 10 MG MG t_under MG _the_to ngue_an d_allow _to_dis solve} Vistaril 25 Vistaril 25 No 1{capsu TID Vistaril MG MG le_as_n 25 MG eeded} Atorvastati Atorvastati No 1{table QD Atorvastat n Calcium n Calcium t} in Calcium 10 MG 10 MG 10 MG traZODone traZODone No 1{table QD traZODone HCl 100 MG HCl 100 MG t_at_be HCl 100 MG dtime} HumaLOG 100 HumaLOG 100 No HumaLOG UNIT/ML UNIT/ML 100 UNIT/ML Colace 100 Colace 100 No 1{capsu Colace 100 MG MG le_as_n MG eeded} Breo Breo No 1{puff} QD Breo Ellipta Ellipta Ellipta 200-25 200-25 200-25 MCG/INH MCG/INH MCG/INH Zoloft 50 Zoloft 50 No 1{table QD Zoloft 50 MG MG t} MG Iron 325 Iron 325 No 1{table QD Iron 325 (65 Fe) MG (65 Fe) MG t} (65 Fe) MG guaiFENesin guaiFENesin No 10{ml_a guaiFENesi -Codeine -Codeine s_neede n-Codeine 100-10 100-10 d} 100-10 MG/5ML MG/5ML MG/5ML Zestoretic Zestoretic No Zestoretic 20-12.5 MG 20-12.5 MG 20-12.5 MG Bydureon 2 Bydureon 2 No Bydureon 2 MG MG MG Gabapentin Gabapentin No 1{capsu Gabapentin 300 MG 300 MG le} 300 MG Folic Acid Folic Acid No 1{table QD Folic Acid 1 MG 1 MG t} 1 MG Abilify 20 Abilify 20 No 1{table QD Abilify 20 MG MG t} MG [place] Plaquenil Plaquenil No 1{table QD Plaquenil 200 MG 200 MG t_with_ 200 MG food_or _milk} Restasis Restasis No 1{drop_ BID Restasis 0.05 % 0.05 % into_af 0.05 % fected_ eye} Nuvigil Nuvigil No Nuvigil Tolterodine Tolterodine No 1{capsu QD Tolterodin Tartrate ER Tartrate ER le} e Tartrate 4 MG 4 MG ER 4 MG Omeprazole Omeprazole No 1{capsu QD Omeprazole 40 MG 40 MG le} 40 MG Leflunomide Leflunomide No 1{table QD Leflunomid 20 MG 20 MG t} e 20 MG Cyclobenzap Cyclobenzap No 1{table TID Cyclobenza rine HCl 10 rine HCl 10 t_as_ne anatoliy HCl MG MG eded} 10 MG ProAir HFA ProAir HFA No 2{puffs QID ProAir HFA 108 (90 108 (90 _as_nee 108 (90 Base) Base) ded} Base) MCG/ACT MCG/ACT MCG/ACT amitriptyli amitriptyli No amitriptyl ne ne ine Pilocarpine Pilocarpine No 1{table TID Pilocarpin HCl 7.5 MG HCl 7.5 MG t} e HCl 7.5 MG Savella 50 Savella 50 No 2{table BID Savella 50 MG MG ts} MG metFORMIN metFORMIN No QD metFORMIN HCl ER 500 HCl ER 500 HCl ER 500 MG MG MG metFORMIN metFORMIN No QD metFORMIN HCl 1000 MG HCl 1000 MG HCl 1000 MG CeleBREX CeleBREX No 1{capsu QD CeleBREX 200 MG 200 MG le_with 200 MG _food} Saphris 10 Saphris 10 No 1{table QD Saphris 10 MG MG t_under MG _the_to ngue_an d_allow _to_dis solve} Bydureon 2 Bydureon 2 No Bydureon 2 MG MG MG Zestoretic Zestoretic No 1{table QD Zestoretic 20-12.5 MG 20-12.5 MG t} 20-12.5 MG Cyclobenzap Cyclobenzap No 1{table TID Cyclobenza rine HCl 10 rine HCl 10 t_as_ne anatoliy HCl MG MG eded} 10 MG HumaLOG 100 HumaLOG 100 No HumaLOG UNIT/ML UNIT/ML 100 UNIT/ML [place] Breo Breo No 1{puff} QD Breo Ellipta Ellipta Ellipta 200-25 200-25 200-25 MCG/INH MCG/INH MCG/INH guaiFENesin guaiFENesin No 10{ml_a guaiFENesi -Codeine -Codeine s_neede n-Codeine 100-10 100-10 d} 100-10 MG/5ML MG/5ML MG/5ML Nuvigil Nuvigil No Nuvigil CeleBREX CeleBREX No 1{capsu QD CeleBREX 200 MG 200 MG le_with 200 MG _food} Savella 50 Savella 50 No 2{table BID Savella 50 MG MG ts} MG Atorvastati Atorvastati No 1{table QD Atorvastat n Calcium n Calcium t} in Calcium 10 MG 10 MG 10 MG Restasis Restasis No 1{drop_ BID Restasis 0.05 % 0.05 % into_af 0.05 % fected_ eye} Plaquenil Plaquenil No 1{table QD Plaquenil 200 MG 200 MG t_with_ 200 MG food_or _milk} Abilify 20 Abilify 20 No 1{table QD Abilify 20 MG MG t} MG Omeprazole Omeprazole No 1{capsu QD Omeprazole 40 MG 40 MG le} 40 MG Zoloft 50 Zoloft 50 No 1{table QD Zoloft 50 MG MG t} MG Colace 100 Colace 100 No 1{capsu Colace 100 MG MG le_as_n MG eeded} Iron 325 Iron 325 No 1{table QD Iron 325 (65 Fe) MG (65 Fe) MG t} (65 Fe) MG metFORMIN metFORMIN No QD metFORMIN HCl 1000 MG HCl 1000 MG HCl 1000 MG Hemocyte Hemocyte No 1{capsu QD Hemocyte Plus 106-1 Plus 106-1 le} Plus 106-1 MG MG MG Pilocarpine Pilocarpine No 1{table TID Pilocarpin HCl 7.5 MG HCl 7.5 MG t} e HCl 7.5 MG metFORMIN metFORMIN No QD metFORMIN HCl ER 500 HCl ER 500 HCl ER 500 MG MG MG Gabapentin Gabapentin No 1{capsu Gabapentin 300 MG 300 MG le} 300 MG amitriptyli amitriptyli No amitriptyl ne ne ine Leflunomide Leflunomide No 1{table QD Leflunomid 20 MG 20 MG t} e 20 MG Folic Acid Folic Acid No 1{table QD Folic Acid 1 MG 1 MG t} 1 MG ProAir HFA ProAir HFA No 2{puffs QID ProAir HFA 108 (90 108 (90 _as_nee 108 (90 Base) Base) ded} Base) MCG/ACT MCG/ACT MCG/ACT Tolterodine Tolterodine No 1{capsu QD Tolterodin Tartrate ER Tartrate ER le} e Tartrate 4 MG 4 MG ER 4 MG traZODone traZODone No 1{table QD traZODone HCl 100 MG HCl 100 MG t_at_be HCl 100 MG dtime} Toujeo Toujeo No BID Toujeo SoloStar SoloStar SoloStar 300u/ml 300u/ml 300u/ml Zestoretic Zestoretic No Zestoretic 20-12.5 MG 20-12.5 MG 20-12.5 MG Vistaril 25 Vistaril 25 No 1{capsu TID Vistaril MG MG le_as_n 25 MG eeded} Saphris 10 Saphris 10 No 1{table QD Saphris 10 MG MG t_under MG _the_to ngue_an d_allow _to_dis solve} Bydureon 2 Bydureon 2 No Bydureon 2 MG MG MG Zestoretic Zestoretic No 1{table QD Zestoretic 20-12.5 MG 20-12.5 MG t} 20-12.5 MG Cyclobenzap Cyclobenzap No 1{table TID Cyclobenza rine HCl 10 rine HCl 10 t_as_ne anatoliy HCl MG MG eded} 10 MG HumaLOG 100 HumaLOG 100 No HumaLOG UNIT/ML UNIT/ML 100 UNIT/ML [place] Breo Breo No 1{puff} QD Breo Ellipta Ellipta Ellipta 200-25 200-25 200-25 MCG/INH MCG/INH MCG/INH guaiFENesin guaiFENesin No 10{ml_a guaiFENesi -Codeine -Codeine s_neede n-Codeine 100-10 100-10 d} 100-10 MG/5ML MG/5ML MG/5ML Nuvigil Nuvigil No Nuvigil CeleBREX CeleBREX No 1{capsu QD CeleBREX 200 MG 200 MG le_with 200 MG _food} Savella 50 Savella 50 No 2{table BID Savella 50 MG MG ts} MG Atorvastati Atorvastati No 1{table QD Atorvastat n Calcium n Calcium t} in Calcium 10 MG 10 MG 10 MG Restasis Restasis No 1{drop_ BID Restasis 0.05 % 0.05 % into_af 0.05 % fected_ eye} Plaquenil Plaquenil No 1{table QD Plaquenil 200 MG 200 MG t_with_ 200 MG food_or _milk} Abilify 20 Abilify 20 No 1{table QD Abilify 20 MG MG t} MG Omeprazole Omeprazole No 1{capsu QD Omeprazole 40 MG 40 MG le} 40 MG Zoloft 50 Zoloft 50 No 1{table QD Zoloft 50 MG MG t} MG Colace 100 Colace 100 No 1{capsu Colace 100 MG MG le_as_n MG eeded} Iron 325 Iron 325 No 1{table QD Iron 325 (65 Fe) MG (65 Fe) MG t} (65 Fe) MG metFORMIN metFORMIN No QD metFORMIN HCl 1000 MG HCl 1000 MG HCl 1000 MG Hemocyte Hemocyte No 1{capsu QD Hemocyte Plus 106-1 Plus 106-1 le} Plus 106-1 MG MG MG Pilocarpine Pilocarpine No 1{table TID Pilocarpin HCl 7.5 MG HCl 7.5 MG t} e HCl 7.5 MG metFORMIN metFORMIN No QD metFORMIN HCl ER 500 HCl ER 500 HCl ER 500 MG MG MG Gabapentin Gabapentin No 1{capsu Gabapentin 300 MG 300 MG le} 300 MG amitriptyli amitriptyli No amitriptyl ne ne ine Leflunomide Leflunomide No 1{table QD Leflunomid 20 MG 20 MG t} e 20 MG Folic Acid Folic Acid No 1{table QD Folic Acid 1 MG 1 MG t} 1 MG ProAir HFA ProAir HFA No 2{puffs QID ProAir HFA 108 (90 108 (90 _as_nee 108 (90 Base) Base) ded} Base) MCG/ACT MCG/ACT MCG/ACT Tolterodine Tolterodine No 1{capsu QD Tolterodin Tartrate ER Tartrate ER le} e Tartrate 4 MG 4 MG ER 4 MG traZODone traZODone No 1{table QD traZODone HCl 100 MG HCl 100 MG t_at_be HCl 100 MG dtime} Toujeo Toujeo No BID Toujeo SoloStar SoloStar SoloStar 300u/ml 300u/ml 300u/ml Zestoretic Zestoretic No Zestoretic 20-12.5 MG 20-12.5 MG 20-12.5 MG Vistaril 25 Vistaril 25 No 1{capsu TID Vistaril MG MG le_as_n 25 MG eeded} Saphris 10 Saphris 10 No 1{table QD Saphris 10 MG MG t_under MG _the_to ngue_an d_allow _to_dis solve} Bydureon 2 Bydureon 2 No Bydureon 2 MG MG MG Zestoretic Zestoretic No 1{table QD Zestoretic 20-12.5 MG 20-12.5 MG t} 20-12.5 MG Cyclobenzap Cyclobenzap No 1{table TID Cyclobenza rine HCl 10 rine HCl 10 t_as_ne anatoliy HCl MG MG eded} 10 MG HumaLOG 100 HumaLOG 100 No HumaLOG UNIT/ML UNIT/ML 100 UNIT/ML [place] Breo Breo No 1{puff} QD Breo Ellipta Ellipta Ellipta 200-25 200-25 200-25 MCG/INH MCG/INH MCG/INH guaiFENesin guaiFENesin No 10{ml_a guaiFENesi -Codeine -Codeine s_neede n-Codeine 100-10 100-10 d} 100-10 MG/5ML MG/5ML MG/5ML Nuvigil Nuvigil No Nuvigil CeleBREX CeleBREX No 1{capsu QD CeleBREX 200 MG 200 MG le_with 200 MG _food} Savella 50 Savella 50 No 2{table BID Savella 50 MG MG ts} MG Atorvastati Atorvastati No 1{table QD Atorvastat n Calcium n Calcium t} in Calcium 10 MG 10 MG 10 MG Restasis Restasis No 1{drop_ BID Restasis 0.05 % 0.05 % into_af 0.05 % fected_ eye} Plaquenil Plaquenil No 1{table QD Plaquenil 200 MG 200 MG t_with_ 200 MG food_or _milk} Abilify 20 Abilify 20 No 1{table QD Abilify 20 MG MG t} MG Omeprazole Omeprazole No 1{capsu QD Omeprazole 40 MG 40 MG le} 40 MG Zoloft 50 Zoloft 50 No 1{table QD Zoloft 50 MG MG t} MG Colace 100 Colace 100 No 1{capsu Colace 100 MG MG le_as_n MG eeded} Iron 325 Iron 325 No 1{table QD Iron 325 (65 Fe) MG (65 Fe) MG t} (65 Fe) MG metFORMIN metFORMIN No QD metFORMIN HCl 1000 MG HCl 1000 MG HCl 1000 MG Hemocyte Hemocyte No 1{capsu QD Hemocyte Plus 106-1 Plus 106-1 le} Plus 106-1 MG MG MG Pilocarpine Pilocarpine No 1{table TID Pilocarpin HCl 7.5 MG HCl 7.5 MG t} e HCl 7.5 MG metFORMIN metFORMIN No QD metFORMIN HCl ER 500 HCl ER 500 HCl ER 500 MG MG MG Gabapentin Gabapentin No 1{capsu Gabapentin 300 MG 300 MG le} 300 MG amitriptyli amitriptyli No amitriptyl ne ne ine Leflunomide Leflunomide No 1{table QD Leflunomid 20 MG 20 MG t} e 20 MG Folic Acid Folic Acid No 1{table QD Folic Acid 1 MG 1 MG t} 1 MG ProAir HFA ProAir HFA No 2{puffs QID ProAir HFA 108 (90 108 (90 _as_nee 108 (90 Base) Base) ded} Base) MCG/ACT MCG/ACT MCG/ACT Tolterodine Tolterodine No 1{capsu QD Tolterodin Tartrate ER Tartrate ER le} e Tartrate 4 MG 4 MG ER 4 MG traZODone traZODone No 1{table QD traZODone HCl 100 MG HCl 100 MG t_at_be HCl 100 MG dtime} Toujeo Toujeo No BID Toujeo SoloStar SoloStar SoloStar 300u/ml 300u/ml 300u/ml Zestoretic Zestoretic No Zestoretic 20-12.5 MG 20-12.5 MG 20-12.5 MG Vistaril 25 Vistaril 25 No 1{capsu TID Vistaril MG MG le_as_n 25 MG eeded} Saphris 10 Saphris 10 No 1{table QD Saphris 10 MG MG t_under MG _the_to ngue_an d_allow _to_dis solve} Bydureon 2 Bydureon 2 No Bydureon 2 MG MG MG Zestoretic Zestoretic No 1{table QD Zestoretic 20-12.5 MG 20-12.5 MG t} 20-12.5 MG Cyclobenzap Cyclobenzap No 1{table TID Cyclobenza rine HCl 10 rine HCl 10 t_as_ne anatoliy HCl MG MG eded} 10 MG HumaLOG 100 HumaLOG 100 No HumaLOG UNIT/ML UNIT/ML 100 UNIT/ML [place] Breo Breo No 1{puff} QD Breo Ellipta Ellipta Ellipta 200-25 200-25 200-25 MCG/INH MCG/INH MCG/INH guaiFENesin guaiFENesin No 10{ml_a guaiFENesi -Codeine -Codeine s_neede n-Codeine 100-10 100-10 d} 100-10 MG/5ML MG/5ML MG/5ML Nuvigil Nuvigil No Nuvigil CeleBREX CeleBREX No 1{capsu QD CeleBREX 200 MG 200 MG le_with 200 MG _food} Savella 50 Savella 50 No 2{table BID Savella 50 MG MG ts} MG Atorvastati Atorvastati No 1{table QD Atorvastat n Calcium n Calcium t} in Calcium 10 MG 10 MG 10 MG Restasis Restasis No 1{drop_ BID Restasis 0.05 % 0.05 % into_af 0.05 % fected_ eye} Plaquenil Plaquenil No 1{table QD Plaquenil 200 MG 200 MG t_with_ 200 MG food_or _milk} Abilify 20 Abilify 20 No 1{table QD Abilify 20 MG MG t} MG Omeprazole Omeprazole No 1{capsu QD Omeprazole 40 MG 40 MG le} 40 MG Zoloft 50 Zoloft 50 No 1{table QD Zoloft 50 MG MG t} MG Colace 100 Colace 100 No 1{capsu Colace 100 MG MG le_as_n MG eeded} Iron 325 Iron 325 No 1{table QD Iron 325 (65 Fe) MG (65 Fe) MG t} (65 Fe) MG metFORMIN metFORMIN No QD metFORMIN HCl 1000 MG HCl 1000 MG HCl 1000 MG Hemocyte Hemocyte No 1{capsu QD Hemocyte Plus 106-1 Plus 106-1 le} Plus 106-1 MG MG MG Pilocarpine Pilocarpine No 1{table TID Pilocarpin HCl 7.5 MG HCl 7.5 MG t} e HCl 7.5 MG metFORMIN metFORMIN No QD metFORMIN HCl ER 500 HCl ER 500 HCl ER 500 MG MG MG Gabapentin Gabapentin No 1{capsu Gabapentin 300 MG 300 MG le} 300 MG amitriptyli amitriptyli No amitriptyl ne ne ine Leflunomide Leflunomide No 1{table QD Leflunomid 20 MG 20 MG t} e 20 MG Folic Acid Folic Acid No 1{table QD Folic Acid 1 MG 1 MG t} 1 MG ProAir HFA ProAir HFA No 2{puffs QID ProAir HFA 108 (90 108 (90 _as_nee 108 (90 Base) Base) ded} Base) MCG/ACT MCG/ACT MCG/ACT Tolterodine Tolterodine No 1{capsu QD Tolterodin Tartrate ER Tartrate ER le} e Tartrate 4 MG 4 MG ER 4 MG traZODone traZODone No 1{table QD traZODone HCl 100 MG HCl 100 MG t_at_be HCl 100 MG dtime} Toujeo Toujeo No BID Toujeo SoloStar SoloStar SoloStar 300u/ml 300u/ml 300u/ml Zestoretic Zestoretic No Zestoretic 20-12.5 MG 20-12.5 MG 20-12.5 MG Vistaril 25 Vistaril 25 No 1{capsu TID Vistaril MG MG le_as_n 25 MG eeded} Restasis Restasis No 1{drop_ BID Restasis 0.05 % 0.05 % into_af 0.05 % fected_ eye} Leflunomide Leflunomide No 1{table QD Leflunomid 20 MG 20 MG t} e 20 MG Zestoretic Zestoretic No Zestoretic 20-12.5 MG 20-12.5 MG 20-12.5 MG Folic Acid Folic Acid No 1{table QD Folic Acid 1 MG 1 MG t} 1 MG Tolterodine Tolterodine No 1{capsu QD Tolterodin Tartrate ER Tartrate ER le} e Tartrate 4 MG 4 MG ER 4 MG metFORMIN metFORMIN No QD metFORMIN HCl ER 500 HCl ER 500 HCl ER 500 MG MG MG Pilocarpine Pilocarpine No 1{table TID Pilocarpin HCl 7.5 MG HCl 7.5 MG t} e HCl 7.5 MG Nuvigil Nuvigil No Nuvigil Zestoretic Zestoretic No 1{table QD Zestoretic 20-12.5 MG 20-12.5 MG t} 20-12.5 MG Plaquenil Plaquenil No 1{table QD Plaquenil 200 MG 200 MG t_with_ 200 MG food_or _milk} [place] Omeprazole Omeprazole No 1{capsu QD Omeprazole 40 MG 40 MG le} 40 MG amitriptyli amitriptyli No amitriptyl ne ne ine Breo Breo No 1{puff} QD Breo Ellipta Ellipta Ellipta 200-25 200-25 200-25 MCG/INH MCG/INH MCG/INH Zoloft 50 Zoloft 50 No 1{table QD Zoloft 50 MG MG t} MG metFORMIN metFORMIN No QD metFORMIN HCl 1000 MG HCl 1000 MG HCl 1000 MG HumaLOG 100 HumaLOG 100 No HumaLOG UNIT/ML UNIT/ML 100 UNIT/ML Vistaril 25 Vistaril 25 No 1{capsu TID Vistaril MG MG le_as_n 25 MG eeded} Toujeo Toujeo No BID Toujeo SoloStar SoloStar SoloStar 300u/ml 300u/ml 300u/ml ProAir HFA ProAir HFA No 2{puffs QID ProAir HFA 108 (90 108 (90 _as_nee 108 (90 Base) Base) ded} Base) MCG/ACT MCG/ACT MCG/ACT Iron 325 Iron 325 No 1{table QD Iron 325 (65 Fe) MG (65 Fe) MG t} (65 Fe) MG guaiFENesin guaiFENesin No 10{ml_a guaiFENesi -Codeine -Codeine s_neede n-Codeine 100-10 100-10 d} 100-10 MG/5ML MG/5ML MG/5ML Colace 100 Colace 100 No 1{capsu Colace 100 MG MG le_as_n MG eeded} traZODone traZODone No 1{table QD traZODone HCl 100 MG HCl 100 MG t_at_be HCl 100 MG dtime} Cyclobenzap Cyclobenzap No 1{table TID Cyclobenza rine HCl 10 rine HCl 10 t_as_ne anatoliy HCl MG MG eded} 10 MG Atorvastati Atorvastati No 1{table QD Atorvastat n Calcium n Calcium t} in Calcium 10 MG 10 MG 10 MG Bydureon 2 Bydureon 2 No Bydureon 2 MG MG MG Hemocyte Hemocyte No 1{capsu QD Hemocyte Plus 106-1 Plus 106-1 le} Plus 106-1 MG MG MG Saphris 10 Saphris 10 No 1{table QD Saphris 10 MG MG t_under MG _the_to ngue_an d_allow _to_dis solve} Gabapentin Gabapentin No 1{capsu Gabapentin 300 MG 300 MG le} 300 MG Savella 50 Savella 50 No 2{table BID Savella 50 MG MG ts} MG CeleBREX CeleBREX No 1{capsu QD CeleBREX 200 MG 200 MG le_with 200 MG _food} Abilify 20 Abilify 20 No 1{table QD Abilify 20 MG MG t} MG Savella 50 Savella 50 No 2{table BID Savella 50 MG MG ts} MG metFORMIN metFORMIN No QD metFORMIN HCl ER 500 HCl ER 500 HCl ER 500 MG MG MG Omeprazole Omeprazole No 1{capsu QD Omeprazole 40 MG 40 MG le} 40 MG Gabapentin Gabapentin No 1{capsu Gabapentin 300 MG 300 MG le} 300 MG Leflunomide Leflunomide No 1{table QD Leflunomid 20 MG 20 MG t} e 20 MG Zestoretic Zestoretic No 1{table QD Zestoretic 20-12.5 MG 20-12.5 MG t} 20-12.5 MG CeleBREX CeleBREX No 1{capsu QD CeleBREX 200 MG 200 MG le_with 200 MG _food} Toujeo Toujeo No BID Toujeo SoloStar SoloStar SoloStar 300u/ml 300u/ml 300u/ml metFORMIN metFORMIN No QD metFORMIN HCl 1000 MG HCl 1000 MG HCl 1000 MG guaiFENesin guaiFENesin No 10{ml_a guaiFENesi -Codeine -Codeine s_neede n-Codeine 100-10 100-10 d} 100-10 MG/5ML MG/5ML MG/5ML Colace 100 Colace 100 No 1{capsu Colace 100 MG MG le_as_n MG eeded} Tolterodine Tolterodine No 1{capsu QD Tolterodin Tartrate ER Tartrate ER le} e Tartrate 4 MG 4 MG ER 4 MG Zoloft 50 Zoloft 50 No 1{table QD Zoloft 50 MG MG t} MG Breo Breo No 1{puff} QD Breo Ellipta Ellipta Ellipta 200-25 200-25 200-25 MCG/INH MCG/INH MCG/INH amitriptyli amitriptyli No amitriptyl ne ne ine Atorvastati Atorvastati No 1{table QD Atorvastat n Calcium n Calcium t} in Calcium 10 MG 10 MG 10 MG Nuvigil Nuvigil No Nuvigil ProAir HFA ProAir HFA No 2{puffs QID ProAir HFA 108 (90 108 (90 _as_nee 108 (90 Base) Base) ded} Base) MCG/ACT MCG/ACT MCG/ACT Folic Acid Folic Acid No 1{table QD Folic Acid 1 MG 1 MG t} 1 MG Saphris 10 Saphris 10 No 1{table QD Saphris 10 MG MG t_under MG _the_to ngue_an d_allow _to_dis solve} Vistaril 25 Vistaril 25 No 1{capsu TID Vistaril MG MG le_as_n 25 MG eeded} Plaquenil Plaquenil No 1{table QD Plaquenil 200 MG 200 MG t_with_ 200 MG food_or _milk} Cyclobenzap Cyclobenzap No 1{table TID Cyclobenza rine HCl 10 rine HCl 10 t_as_ne anatoliy HCl MG MG eded} 10 MG traZODone traZODone No 1{table QD traZODone HCl 100 MG HCl 100 MG t_at_be HCl 100 MG dtime} Zestoretic Zestoretic No Zestoretic 20-12.5 MG 20-12.5 MG 20-12.5 MG [place] Iron 325 Iron 325 No 1{table QD Iron 325 (65 Fe) MG (65 Fe) MG t} (65 Fe) MG Pilocarpine Pilocarpine No 1{table TID Pilocarpin HCl 7.5 MG HCl 7.5 MG t} e HCl 7.5 MG Hemocyte Hemocyte No 1{capsu QD Hemocyte Plus 106-1 Plus 106-1 le} Plus 106-1 MG MG MG Restasis Restasis No 1{drop_ BID Restasis 0.05 % 0.05 % into_af 0.05 % fected_ eye} Bydureon 2 Bydureon 2 No Bydureon 2 MG MG MG Abilify 20 Abilify 20 No 1{table QD Abilify 20 MG MG t} MG HumaLOG 100 HumaLOG 100 No HumaLOG UNIT/ML UNIT/ML 100 UNIT/ML Savella 50 Savella 50 No 2{table BID Savella 50 MG MG ts} MG metFORMIN metFORMIN No QD metFORMIN HCl ER 500 HCl ER 500 HCl ER 500 MG MG MG Omeprazole Omeprazole No 1{capsu QD Omeprazole 40 MG 40 MG le} 40 MG Gabapentin Gabapentin No 1{capsu Gabapentin 300 MG 300 MG le} 300 MG Leflunomide Leflunomide No 1{table QD Leflunomid 20 MG 20 MG t} e 20 MG Zestoretic Zestoretic No 1{table QD Zestoretic 20-12.5 MG 20-12.5 MG t} 20-12.5 MG CeleBREX CeleBREX No 1{capsu QD CeleBREX 200 MG 200 MG le_with 200 MG _food} Toujeo Toujeo No BID Toujeo SoloStar SoloStar SoloStar 300u/ml 300u/ml 300u/ml metFORMIN metFORMIN No QD metFORMIN HCl 1000 MG HCl 1000 MG HCl 1000 MG guaiFENesin guaiFENesin No 10{ml_a guaiFENesi -Codeine -Codeine s_neede n-Codeine 100-10 100-10 d} 100-10 MG/5ML MG/5ML MG/5ML Colace 100 Colace 100 No 1{capsu Colace 100 MG MG le_as_n MG eeded} Tolterodine Tolterodine No 1{capsu QD Tolterodin Tartrate ER Tartrate ER le} e Tartrate 4 MG 4 MG ER 4 MG Zoloft 50 Zoloft 50 No 1{table QD Zoloft 50 MG MG t} MG Breo Breo No 1{puff} QD Breo Ellipta Ellipta Ellipta 200-25 200-25 200-25 MCG/INH MCG/INH MCG/INH amitriptyli amitriptyli No amitriptyl ne ne ine Atorvastati Atorvastati No 1{table QD Atorvastat n Calcium n Calcium t} in Calcium 10 MG 10 MG 10 MG Nuvigil Nuvigil No Nuvigil ProAir HFA ProAir HFA No 2{puffs QID ProAir HFA 108 (90 108 (90 _as_nee 108 (90 Base) Base) ded} Base) MCG/ACT MCG/ACT MCG/ACT Folic Acid Folic Acid No 1{table QD Folic Acid 1 MG 1 MG t} 1 MG Saphris 10 Saphris 10 No 1{table QD Saphris 10 MG MG t_under MG _the_to ngue_an d_allow _to_dis solve} Vistaril 25 Vistaril 25 No 1{capsu TID Vistaril MG MG le_as_n 25 MG eeded} Plaquenil Plaquenil No 1{table QD Plaquenil 200 MG 200 MG t_with_ 200 MG food_or _milk} Cyclobenzap Cyclobenzap No 1{table TID Cyclobenza rine HCl 10 rine HCl 10 t_as_ne anatoliy HCl MG MG eded} 10 MG traZODone traZODone No 1{table QD traZODone HCl 100 MG HCl 100 MG t_at_be HCl 100 MG dtime} Zestoretic Zestoretic No Zestoretic 20-12.5 MG 20-12.5 MG 20-12.5 MG [place] Iron 325 Iron 325 No 1{table QD Iron 325 (65 Fe) MG (65 Fe) MG t} (65 Fe) MG Pilocarpine Pilocarpine No 1{table TID Pilocarpin HCl 7.5 MG HCl 7.5 MG t} e HCl 7.5 MG Hemocyte Hemocyte No 1{capsu QD Hemocyte Plus 106-1 Plus 106-1 le} Plus 106-1 MG MG MG Restasis Restasis No 1{drop_ BID Restasis 0.05 % 0.05 % into_af 0.05 % fected_ eye} Bydureon 2 Bydureon 2 No Bydureon 2 MG MG MG Abilify 20 Abilify 20 No 1{table QD Abilify 20 MG MG t} MG HumaLOG 100 HumaLOG 100 No HumaLOG UNIT/ML UNIT/ML 100 UNIT/ML Iron 325 Iron 325 No 1{table QD Iron 325 (65 Fe) MG (65 Fe) MG t} (65 Fe) MG Nuvigil Nuvigil No Nuvigil Toujeo Toujeo No BID Toujeo SoloStar SoloStar SoloStar 300u/ml 300u/ml 300u/ml Leflunomide Leflunomide No 1{table QD Leflunomid 20 MG 20 MG t} e 20 MG Zestoretic Zestoretic No Zestoretic 20-12.5 MG 20-12.5 MG 20-12.5 MG Atorvastati Atorvastati No 1{table QD Atorvastat n Calcium n Calcium t} in Calcium 10 MG 10 MG 10 MG metFORMIN metFORMIN No QD metFORMIN HCl 1000 MG HCl 1000 MG HCl 1000 MG Folic Acid Folic Acid No 1{table QD Folic Acid 1 MG 1 MG t} 1 MG Colace 100 Colace 100 No 1{capsu Colace 100 MG MG le_as_n MG eeded} HumaLOG 100 HumaLOG 100 No HumaLOG UNIT/ML UNIT/ML 100 UNIT/ML Tolterodine Tolterodine No 1{capsu QD Tolterodin Tartrate ER Tartrate ER le} e Tartrate 4 MG 4 MG ER 4 MG Hemocyte Hemocyte No 1{capsu QD Hemocyte Plus 106-1 Plus 106-1 le} Plus 106-1 MG MG MG guaiFENesin guaiFENesin No 10{ml_a guaiFENesi -Codeine -Codeine s_neede n-Codeine 100-10 100-10 d} 100-10 MG/5ML MG/5ML MG/5ML traZODone traZODone No 1{table QD traZODone HCl 100 MG HCl 100 MG t_at_be HCl 100 MG dtime} Vistaril 25 Vistaril 25 No 1{capsu TID Vistaril MG MG le_as_n 25 MG eeded} Savella 50 Savella 50 No 2{table BID Savella 50 MG MG ts} MG Abilify 20 Abilify 20 No 1{table QD Abilify 20 MG MG t} MG Saphris 10 Saphris 10 No 1{table QD Saphris 10 MG MG t_under MG _the_to ngue_an d_allow _to_dis solve} [place] Zoloft 50 Zoloft 50 No 1{table QD Zoloft 50 MG MG t} MG Cyclobenzap Cyclobenzap No 1{table TID Cyclobenza rine HCl 10 rine HCl 10 t_as_ne anatoliy HCl MG MG eded} 10 MG amitriptyli amitriptyli No amitriptyl ne ne ine metFORMIN metFORMIN No QD metFORMIN HCl ER 500 HCl ER 500 HCl ER 500 MG MG MG Bydureon 2 Bydureon 2 No Bydureon 2 MG MG MG Restasis Restasis No 1{drop_ BID Restasis 0.05 % 0.05 % into_af 0.05 % fected_ eye} CeleBREX CeleBREX No 1{capsu QD CeleBREX 200 MG 200 MG le_with 200 MG _food} ProAir HFA ProAir HFA No 2{puffs QID ProAir HFA 108 (90 108 (90 _as_nee 108 (90 Base) Base) ded} Base) MCG/ACT MCG/ACT MCG/ACT Breo Breo No 1{puff} QD Breo Ellipta Ellipta Ellipta 200-25 200-25 200-25 MCG/INH MCG/INH MCG/INH Zestoretic Zestoretic No 1{table QD Zestoretic 20-12.5 MG 20-12.5 MG t} 20-12.5 MG Pilocarpine Pilocarpine No 1{table TID Pilocarpin HCl 7.5 MG HCl 7.5 MG t} e HCl 7.5 MG Plaquenil Plaquenil No 1{table QD Plaquenil 200 MG 200 MG t_with_ 200 MG food_or _milk} Gabapentin Gabapentin No 1{capsu Gabapentin 300 MG 300 MG le} 300 MG Omeprazole Omeprazole No 1{capsu QD Omeprazole 40 MG 40 MG le} 40 MG Gabapentin Gabapentin No 1{capsu Gabapentin 300 MG 300 MG le} 300 MG Iron 325 Iron 325 No 1{table QD Iron 325 (65 Fe) MG (65 Fe) MG t} (65 Fe) MG Toujeo Toujeo No BID Toujeo SoloStar SoloStar SoloStar 300u/ml 300u/ml 300u/ml Leflunomide Leflunomide No 1{table QD Leflunomid 20 MG 20 MG t} e 20 MG Zestoretic Zestoretic No Zestoretic 20-12.5 MG 20-12.5 MG 20-12.5 MG Atorvastati Atorvastati No 1{table QD Atorvastat n Calcium n Calcium t} in Calcium 10 MG 10 MG 10 MG metFORMIN metFORMIN No QD metFORMIN HCl 1000 MG HCl 1000 MG HCl 1000 MG Folic Acid Folic Acid No 1{table QD Folic Acid 1 MG 1 MG t} 1 MG Colace 100 Colace 100 No 1{capsu Colace 100 MG MG le_as_n MG eeded} HumaLOG 100 HumaLOG 100 No HumaLOG UNIT/ML UNIT/ML 100 UNIT/ML Tolterodine Tolterodine No 1{capsu QD Tolterodin Tartrate ER Tartrate ER le} e Tartrate 4 MG 4 MG ER 4 MG Hemocyte Hemocyte No 1{capsu QD Hemocyte Plus 106-1 Plus 106-1 le} Plus 106-1 MG MG MG guaiFENesin guaiFENesin No 10{ml_a guaiFENesi -Codeine -Codeine s_neede n-Codeine 100-10 100-10 d} 100-10 MG/5ML MG/5ML MG/5ML traZODone traZODone No 1{table QD traZODone HCl 100 MG HCl 100 MG t_at_be HCl 100 MG dtime} Vistaril 25 Vistaril 25 No 1{capsu TID Vistaril MG MG le_as_n 25 MG eeded} amitriptyli amitriptyli No amitriptyl ne ne ine Savella 50 Savella 50 No 2{table BID Savella 50 MG MG ts} MG CeleBREX CeleBREX No 1{capsu QD CeleBREX 200 MG 200 MG le_with 200 MG _food} ProAir HFA ProAir HFA No 2{puffs QID ProAir HFA 108 (90 108 (90 _as_nee 108 (90 Base) Base) ded} Base) MCG/ACT MCG/ACT MCG/ACT Zoloft 50 Zoloft 50 No 1{table QD Zoloft 50 MG MG t} MG Breo Breo No 1{puff} QD Breo Ellipta Ellipta Ellipta 200-25 200-25 200-25 MCG/INH MCG/INH MCG/INH [place] metFORMIN metFORMIN No QD metFORMIN HCl ER 500 HCl ER 500 HCl ER 500 MG MG MG Bydureon 2 Bydureon 2 No Bydureon 2 MG MG MG Restasis Restasis No 1{drop_ BID Restasis 0.05 % 0.05 % into_af 0.05 % fected_ eye} Cyclobenzap Cyclobenzap No 1{table TID Cyclobenza rine HCl 10 rine HCl 10 t_as_ne anatoliy HCl MG MG eded} 10 MG Nuvigil Nuvigil No Nuvigil Abilify 20 Abilify 20 No 1{table QD Abilify 20 MG MG t} MG Saphris 10 Saphris 10 No 1{table QD Saphris 10 MG MG t_under MG _the_to ngue_an d_allow _to_dis solve} Plaquenil Plaquenil No 1{table QD Plaquenil 200 MG 200 MG t_with_ 200 MG food_or _milk} Zestoretic Zestoretic No 1{table QD Zestoretic 20-12.5 MG 20-12.5 MG t} 20-12.5 MG Pilocarpine Pilocarpine No 1{table TID Pilocarpin HCl 7.5 MG HCl 7.5 MG t} e HCl 7.5 MG Omeprazole Omeprazole No 1{capsu QD Omeprazole 40 MG 40 MG le} 40 MG Cyclobenzap Cyclobenzap No 1{table TID Cyclobenza rine HCl 10 rine HCl 10 t_as_ne anatoliy HCl MG MG eded} 10 MG Baclofen 10 Baclofen 10 No 1{table QD Baclofen MG MG t_as_ne 10 MG eded} Saphris 10 Saphris 10 No 1{table QD Saphris 10 MG MG t_under MG _the_to ngue_an d_allow _to_dis solve} ProAir HFA ProAir HFA No 2{puffs QID ProAir HFA 108 (90 108 (90 _as_nee 108 (90 Base) Base) ded} Base) MCG/ACT MCG/ACT MCG/ACT Zoloft 50 Zoloft 50 No 1{table QD Zoloft 50 MG MG t} MG Savella 50 Savella 50 No 2{table BID Savella 50 MG MG ts} MG Plaquenil Plaquenil No 1{table QD Plaquenil 200 MG 200 MG t_with_ 200 MG food_or _milk} HumaLOG 100 HumaLOG 100 No HumaLOG UNIT/ML UNIT/ML 100 UNIT/ML Pilocarpine Pilocarpine No 1{table TID [place] HCl 7.5 MG HCl 7.5 MG t} e HCl 7.5 MG Bydureon 2 Bydureon 2 No Bydureon 2 MG MG MG CeleBREX CeleBREX No 1{capsu QD CeleBREX 200 MG 200 MG le_with 200 MG _food} guaiFENesin guaiFENesin No 10{ml_a guaiFENesi -Codeine -Codeine s_neede n-Codeine 100-10 100-10 d} 100-10 MG/5ML MG/5ML MG/5ML [place] Folic Acid Folic Acid No 1{table QD Folic Acid 1 MG 1 MG t} 1 MG Restasis Restasis No 1{drop_ BID Restasis 0.05 % 0.05 % into_af 0.05 % fected_ eye} Nuvigil Nuvigil No Nuvigil Abilify 20 Abilify 20 No 1{table QD Abilify 20 MG MG t} MG metFORMIN metFORMIN No QD metFORMIN HCl 1000 MG HCl 1000 MG HCl 1000 MG Vistaril 25 Vistaril 25 No 1{capsu TID Vistaril MG MG le_as_n 25 MG eeded} Gabapentin Gabapentin No 1{capsu Gabapentin 300 MG 300 MG le} 300 MG Tolterodine Tolterodine No 1{capsu QD Tolterodin Tartrate ER Tartrate ER le} e Tartrate 4 MG 4 MG ER 4 MG Iron 325 Iron 325 No 1{table QD Iron 325 (65 Fe) MG (65 Fe) MG t} (65 Fe) MG traZODone traZODone No 1{table QD traZODone HCl 100 MG HCl 100 MG t_at_be HCl 100 MG dtime} Leflunomide Leflunomide No 1{table QD Leflunomid 20 MG 20 MG t} e 20 MG Hemocyte Hemocyte No 1{capsu QD Hemocyte Plus 106-1 Plus 106-1 le} Plus 106-1 MG MG MG amitriptyli amitriptyli No amitriptyl ne ne ine Breo Breo No 1{puff} QD Breo Ellipta Ellipta Ellipta 200-25 200-25 200-25 MCG/INH MCG/INH MCG/INH Zestoretic Zestoretic No Zestoretic 20-12.5 MG 20-12.5 MG 20-12.5 MG Atorvastati Atorvastati No 1{table QD Atorvastat n Calcium n Calcium t} in Calcium 10 MG 10 MG 10 MG metFORMIN metFORMIN No QD metFORMIN HCl ER 500 HCl ER 500 HCl ER 500 MG MG MG Toujeo Toujeo No BID Toujeo SoloStar SoloStar SoloStar 300u/ml 300u/ml 300u/ml Colace 100 Colace 100 No 1{capsu Colace 100 MG MG le_as_n MG eeded} Omeprazole Omeprazole No 1{capsu QD Omeprazole 40 MG 40 MG le} 40 MG Zestoretic Zestoretic No 1{table QD Zestoretic 20-12.5 MG 20-12.5 MG t} 20-12.5 MG Cyclobenzap Cyclobenzap No 1{table TID Cyclobenza rine HCl 10 rine HCl 10 t_as_ne anatoliy HCl MG MG eded} 10 MG Baclofen 10 Baclofen 10 No 1{table QD Baclofen MG MG t_as_ne 10 MG eded} Saphris 10 Saphris 10 No 1{table QD Saphris 10 MG MG t_under MG _the_to ngue_an d_allow _to_dis solve} ProAir HFA ProAir HFA No 2{puffs QID ProAir HFA 108 (90 108 (90 _as_nee 108 (90 Base) Base) ded} Base) MCG/ACT MCG/ACT MCG/ACT Zoloft 50 Zoloft 50 No 1{table QD Zoloft 50 MG MG t} MG Savella 50 Savella 50 No 2{table BID Savella 50 MG MG ts} MG Plaquenil Plaquenil No 1{table QD Plaquenil 200 MG 200 MG t_with_ 200 MG food_or _milk} HumaLOG 100 HumaLOG 100 No HumaLOG UNIT/ML UNIT/ML 100 UNIT/ML Pilocarpine Pilocarpine No 1{table TID Pil[place]arpin HCl 7.5 MG HCl 7.5 MG t} e HCl 7.5 MG Bydureon 2 Bydureon 2 No Bydureon 2 MG MG MG CeleBREX CeleBREX No 1{capsu QD CeleBREX 200 MG 200 MG le_with 200 MG _food} guaiFENesin guaiFENesin No 10{ml_a guaiFENesi -Codeine -Codeine s_neede n-Codeine 100-10 100-10 d} 100-10 MG/5ML MG/5ML MG/5ML [place] Folic Acid Folic Acid No 1{table QD Folic Acid 1 MG 1 MG t} 1 MG Restasis Restasis No 1{drop_ BID Restasis 0.05 % 0.05 % into_af 0.05 % fected_ eye} Nuvigil Nuvigil No Nuvigil Abilify 20 Abilify 20 No 1{table QD Abilify 20 MG MG t} MG metFORMIN metFORMIN No QD metFORMIN HCl 1000 MG HCl 1000 MG HCl 1000 MG Vistaril 25 Vistaril 25 No 1{capsu TID Vistaril MG MG le_as_n 25 MG eeded} Gabapentin Gabapentin No 1{capsu Gabapentin 300 MG 300 MG le} 300 MG Tolterodine Tolterodine No 1{capsu QD Tolterodin Tartrate ER Tartrate ER le} e Tartrate 4 MG 4 MG ER 4 MG Iron 325 Iron 325 No 1{table QD Iron 325 (65 Fe) MG (65 Fe) MG t} (65 Fe) MG traZODone traZODone No 1{table QD traZODone HCl 100 MG HCl 100 MG t_at_be HCl 100 MG dtime} Abilify 20 Abilify 20 Yes 1 po QHS [facility] MG Oral MG Oral Physici Tablet Tablet ans Savella 50 Savella 50 Yes 1 po QHS [facility] MG Oral MG Oral Physici Tablet Tablet ans Plavix 75 Plavix 75 Yes UT MG Oral MG Oral Physici Tablet Tablet ans Simvastatin Simvastatin Yes U T 40 MG Oral 40 MG Oral Phy sici Tablet Tablet ans SulfaSALAzi SulfaSALAzi Yes U T ne 500 MG ne 500 MG Physi ci Oral Tablet Oral Tablet a ns Leflunomide Leflunomide Yes U T 20 MG Oral 20 MG Oral Phy sici Tablet Tablet ans CeleBREX CeleBREX Yes UT CAPS CAPS Physici ans Hydroxychlo Hydroxychlo Yes U T roquine roquine Physici Sulfate 200 Sulfate 200 a ns MG Oral MG Oral Tablet Tablet Folic Acid Folic Acid Yes UT 1 MG Oral 1 MG Oral Physi ci Tablet Tablet ans Pilocarpine Pilocarpine Yes U T HCl - 7.5 HCl - 7.5 Physi ci MG Oral MG Oral ans Tablet Tablet HydrOXYzine HydrOXYzine Yes U T HCl - 25 MG HCl - 25 MG P hysici Oral Tablet Oral Tablet a ns TraZODone TraZODone Yes UT HCl TABS HCl TABS Physici ans Tresiba Tresiba Yes UT FlexTouch FlexTouch Physi ci SOPN SOPN ans Bydureon Bydureon Yes [facility] PEN PEN Physici ans Immunizations Ordered Immunization Filled Immunization Date Status Commen ts Source Name Name [facility] 2019-11-02 Completed [facility] ([facility] (Triamcinolone) 14:42:00 - I [facility] 2019-11-02 Completed [facility] (Triamcinolone) (Triamcinolone) 14:42:00 - I [facility] 2019-11-02 Completed [facility] (Triamcinolone) (Triamcinolone) 14:42:00 - I [facility] 2019-11-02 Completed [facility] (Triamcinolone) (Triamcinolone) 14:42:00 - I [facility] 2019-11-02 Completed [facility] (Triamcinolone) (Triamcinolone) 14:42:00 - [facility] 2019-11-02 Completed [facility] (Triamcinolone) (Triamcinolone) 14:42:00 - [facility] 2019-11-02 Completed [facility] (Triamcinolone) (Triamcinolone) 14:42:00 - [facility] 2019-11-02 Completed [facility] (Triamcinolone) (Triamcinolone) 14:42:00 - [facility] 2019-11-02 Completed [facility] (Triamcinolone) (Triamcinolone) 14:42:00 - [facility] Vital Signs Vital Name Observation Time Observation Value Comments Source Systolic blood 2021-10-31 126 mm[Hg] [facility] 19:16:00 Diastolic blood 2021-10-31 84 mm[Hg] [facility] 19:16:00 Body height 2021-10-31 180.3 cm [facility] 19[facility]16:00 Body weight 2021-10-31 112.038 kg [facility] 19:16:00 BMI 2021-10-31 34.45 kg/m2 [facility] 19:16:00 Systolic blood 2021-10-24 118 mm[Hg] [facility] 18:53:00 Diastolic blood 2021-10-24 68 mm[Hg] [facility] 18:53:00 Body temperature 2021-10-24 36.44 Teresa [facility] 18:53:00 Body height 2021-10-24 180.3 cm [facility] 18:53:00 Body weight 2021-10-24 112.401 kg [facility] 18:53:00 BMI 2021-10-24 34.56 kg/m2 [facility] 18:53:00 height 2021-10-17 71 [in_i] [facility] - 11:20:00 [facility] weight 2021-10-17 230 [lb_av] [facility] - 11:20:00 [facility] temperature 2021-10-17 97.6 [degF] [facility] - 11:20:00 [facility] bmi 2021-10-17 32.07 kg/m2 [facility] - 11:20:00 [facility] oximetry 2021-10-17 97 % [facility] - 11:20:00 [facility] respiratory rate 2021-10-17 16 /min [facility] - 11:20[facility]00 [facility] blood pressure 2021-10-17 132 mm[Hg] [facility] - systolic 11:20:00 [facility] blood pressure 2021-10-17 76 mm[Hg] [facility] - diastolic 11:20:00 [facility] Systolic blood 2021-10-11 135 mm[Hg] [facility] pressure 13:08:00 [facility] Diastolic blood 2021-10-11 81 mm[Hg] [place] o f pressure 13:08:00 [facility] Heart rate 2021-10-11 78 /min [facility] 13:08:00 [facility] Body height 2021-10-11 180.3 cm [facility] 13:08:00 [facility] Body weight 2021-10-11 104.101 kg [facility] 13:08:00 [facility] BMI 2021-10-11 32.01 kg/m2 [facility] 13:08:00 [facility] Oxygen saturation 2021-10-11 97 /min [facility] Arterial blood 13:08:00 [facility] Pulse oximetry [place] height 2021-07-18 71.5 [in_i] [facility] - 10:40:00 [facility] weight 2021-07-18 228.9 [lb_av] [facility] - 10:40:00 [facility] temperature 2021-07-18 98.1 [degF] [facility] - 10:40:00 [facility] bmi 2021-07-18 31.48 kg/m2 [facility] - 10:40:00 [facility] oximetry 2021-07-18 95 % [facility] - 10:40:00 [facility] respiratory rate 2021-07-18 17 /min [facility] - 10:40:00 [facility] blood pressure 2021-07-18 135 mm[Hg] [facility] - systolic 10:40:00 [facility] blood pressure 2021-07-18 76 mm[Hg] [facility] - diastolic 10:40:00 [facility] height 2021-04-03 71.5 [in_i] [facility] - 15:00:00 [facility] weight 2021-04-03 234 [lb_av] [facility] - 15:00:00 [facility] temperature 2021-04-03 96.9 [degF] [facility] - 15:00:00 [facility] bmi 2021-04-03 32.18 kg/m2 [facility] - 15[facility]00:00 [facility] oximetry 2021-04-03 98 % [facility] - 15:00:00 [facility] respiratory rate 2021-04-03 17 /min [facility] - 15:00:00 [facility] blood pressure 2021-04-03 138 mm[Hg] [facility] - systolic 15:00:00 [facility] blood pressure 2021-04-03 75 mm[Hg] [facility] - diastolic 15:00:00 [facility] Systolic blood 2021-03-26 152 mm[Hg] [facility] pressure 18:40:00 [facility] Diastolic blood 2021-03-26 58 mm[Hg] [facility] pressure 18:40:00 [facility] Heart rate 2021-03-26 95 /min [facility] 18:40:00 [facility] Body temperature 2021-03-26 37.22 Teresa [facility] 18:40:00 [facility] Respiratory rate 2021-03-26 18 /min [facility] 18:40:00 [facility] Body weight 2021-03-26 106.595 kg [facility] 18:40:00 [facility] BMI 2021-03-26 32.78 kg/m2 [facility] 18:40:00 [facility] Oxygen saturation 2021-03-26 100 /min [facility] in Arterial blood 18:40:00 [facility] Pulse oximetry [place] height 2021-03-05 71.5 [in_i] [facility] - 09:50:00 [facility] weight 2021-03-05 239.4 [lb_av] [facility] - 09:50:00 [facility] temperature 2021-03-05 98.1 [degF] [facility] - 09:50:00 [facility] bmi 2021-03-05 32.92 kg/m2 [facility] - 09:50:00 [facility] oximetry 2021-03-05 98 % [facility] - 09:50:00 [facility] respiratory rate 2021-03-05 18 /min [facility] - 09:50:00 [facility] blood pressure 2021-03-05 136 mm[Hg] [facility] - systolic 09:50:00 [facility] blood pressure 2021-03-05 64 mm[Hg] [facility] - diastolic 09:50:00 [facility] height 2021-03-05 71.5 [in_i] [facility] - 09:50:00 [facility] weight 2021-03-05 239.4 [lb_av] [facility] - 09:50:00 [facility] temperature 2021-03-05 98.1 [degF] [facility] - 09:50:00 [facility] bmi 2021-03-05 32.92 kg/m2 [facility] - 09:50:00 [facility] oximetry 2021-03-05 98 % [facility] - 09:50:00 [facility] blood pressure 2021-03-05 136 mm[Hg] [facility] - systolic 09:50:00 [facility] blood pressure 2021-03-05 64 mm[Hg] [facility] - diastolic 09:50:00 [facility] height 2020-12-07 71.5 [in_i] [facility] - 10:10:00 [facility] weight 2020-12-07 250.3 [lb_av] [facility] - 10:10:00 [facility] temperature 2020-12-07 98.0 [degF] [facility] - 10:10:00 [facility] bmi 2020-12-07 34.42 kg/m2 [facility] - 10:10:00 [facility] oximetry 2020-12-07 98 % [facility] - 10:10:00 [facility] respiratory rate 2020-12-07 17 /min [facility] - 10:10:00 [facility] blood pressure 2020-12-07 135 mm[Hg] [facility] - systolic 10:10:00 [facility] blood pressure 2020-12-07 70 mm[Hg] [facility] - diastolic 10:10:00 [facility] Systolic blood 2020-12-03 127 mm[Hg] [facility] pressure 19:16:00 [facility] Diastolic blood 2020-12-03 84 mm[Hg] [facility] pressure 19:16:00 [facility] Heart rate 2020-12-03 85 /min [facility] 19:16:00 [facility] Body temperature 2020-12-03 36.5 Teresa [facility] 19:16:00 [facility] Respiratory rate 2020-12-03 16 /min [facility] 19:16:00 [facility] Body height 2020-12-03 180.3 cm [facility] 19:16:00 [facility] Body weight 2020-12-03 113.399 kg [facility] 19:16:00 [facility] BMI 2020-12-03 34.87 kg/m2 [facility] 19:16:00 [facility] Oxygen saturation 2020-12-03 97 /min [facility] Arterial blood 19:16:00 [facility] by Pulse oximetry [place] height 2020-10-26 71.5 [in_i] [facility] - 10:10:00 [facility] weight 2020-10-26 290 [lb_av] [facility] - 10:10:00 [facility] temperature 2020-10-26 98 [degF] [facility] - 10:10:00 [facility] bmi 2020-10-26 39.88 kg/m2 [facility] - 10:10:00 [facility] blood pressure 2020-10-26 131 mm[Hg] [facility] - systolic 10:10:00 [facility] blood pressure 2020-10-26 70 mm[Hg] [facility] - diastolic 10:10:00 [facility] Systolic blood 2020-06-21 148 mm[Hg] [facility] pressure 20:01:00 [facility] Diastolic blood 2020-06-21 85 mm[Hg] [facility] pressure 20:01:00 [facility] Heart rate 2020-06-21 83 /min [facility] 20:01:00 [facility] Body temperature 2020-06-21 36.94 Teresa [facility] 20:01:00 [facility] Respiratory rate 2020-06-21 18 /min [facility] 20:01:00 [facility] Body height 2020-06-21 180.3 cm [facility] 20:01:00 [facility] Body weight 2020-06-21 131.271 kg [facility] 20:01:00 [facility] BMI 2020-06-21 40.36 kg/m2 [facility] 20:01:00 [facility] Systolic blood 2020-06-22 144 mm[Hg] [facility] pressure 15:10:00 Hospital Diastolic blood 2020-06-22 65 mm[Hg] [facility] pressure 15:10:00 Hospital Heart rate 2020-06-22 88 /min [facility] 15:10:00 [facility] Body temperature 2020-06-22 36.22 Teresa [facility] 15:10:00 [facility] Body height 2020-06-22 180.3 cm [facility] 15:10:00 [facility] Respiratory rate 2020-05-05 16 /min [facility] 20:27:41 Hospital Oxygen saturation 2020-05-05 98 /min [facility] in Arterial blood 20:27:41 Hospital by Pulse oximetry Body weight 2020-05-04 128.187 kg [facility] 22:05:46 Hospital BMI 2020-05-04 39.41 kg/m2 [facility] 22:05:46 [facility] BP Systolic 2017-09-03 130 mm[Hg] Location: [facility] 11:02:00 Position: Sitting BP Diastolic 2017-09-03 80 mm[Hg] Location: [facility] 11:02:00 Position: Sitting Height 2017-09-03 71 [in_us] [facility] 11:02:00 Weight 2017-09-03 298 [lb_av] [facility] 11:02:00 Body Mass Index 2017-09-03 41.56 kg/m2 [facility] 11:02:00 Temperature 2017-09-03 97.8 [degF] [facility] 11:02:00 BP Systolic 2017-08-27 108 mm[Hg] Location: [facility]; [facility] 14:27:00 Position: Sitting BP Diastolic 2017-08-27 70 mm[Hg] Location: [facility]; [facility] 14:27:00 Position: Sitting Height 2017-08-27 71 [in_us] [facility] 14:27:00 Weight 2017-08-27 298 [lb_av] [facility] 14:27:00 Body Mass Index 2017-08-27 41.56 kg/m2 [facility] 14:27:00 Temperature 2017-08-27 97.9 [degF] [facility] 14:27:00 BP Systolic 2017-08-21 130 mm[Hg] Location: [facility]; [facility] 10:23:00 Position: Sitting BP Diastolic 2017-08-21 84 mm[Hg] Location: [facility]; [facility] 10:23:00 Position: Sitting Height 2017-08-21 71 [in_us] [facility] 10:23:00 Weight 2017-08-21 298 [lb_av] [facility] 10:23:00 Body Mass Index 2017-08-21 41.56 kg/m2 [facility] 10:23:00 BP Systolic 2017-08-14 150 mm[Hg] Location: [facility]; [facility] 10:53:00 Position: Sitting BP Diastolic 2017-08-14 72 mm[Hg] Location: [facility]; [facility] 10:53:00 Position: Sitting Height 2017-08-14 71 [in_us] [facility] 10:53:00 Weight 2017-08-14 298 [lb_av] [facility] 10:53:00 Body Mass Index 2017-08-14 41.56 kg/m2 [facility] 10:53:00 Temperature 2017-08-14 98.8 [degF] [facility] 10:53:00 BP Systolic 2017-07-31 132 mm[Hg] Location: [facility]; [facility] 13:51:00 Position: Sitting BP Diastolic 2017-07-31 68 mm[Hg] Location: [facility]; [facility] 13:51:00 Position: Sitting Height 2017-07-31 71 [in_us] [facility] 13:51:00 Weight 2017-07-31 298 [lb_av] [facility] 13:51:00 Body Mass Index 2017-07-31 41.56 kg/m2 [facility] 13:51:00 Temperature 2017-07-31 98.2 [degF] [facility] 13:51:00 BP Systolic 2017-07-24 122 mm[Hg] Location: [facility]; [facility] 13:30:00 Position: Sitting BP Diastolic 2017-07-24 72 mm[Hg] Location: [facility]; [facility] 13:30:00 Position: Sitting Height 2017-07-24 71 [in_us] [facility] 13:30:00 Weight 2017-07-24 298 [lb_av] [facility] 13:30:00 Body Mass Index 2017-07-24 41.56 kg/m2 [facility] 13:30:00 Temperature 2017-07-24 98.4 [degF] [facility] 13:30:00 BP Systolic 2017-07-17 110 mm[Hg] Location: [facility]; [facility] 14:32:00 Position: Sitting BP Diastolic 2017-07-17 80 mm[Hg] Location: [facility]; [facility] 14:32:00 Position: Sitting Height 2017-07-17 71 [in_us] [facility] 14:32:00 Weight 2017-07-17 298 [lb_av] [facility] 14:32:00 Body Mass Index 2017-07-17 41.56 kg/m2 [facility] 14:32:00 BP Systolic 2017-07-03 142 mm[Hg] Location: [facility]; [facility] 09:36:00 Position: Sitting BP Diastolic 2017-07-03 80 mm[Hg] Location: [facility]; [facility] 09:36:00 Position: Sitting Height 2017-07-03 71 [in_us] [facility] 09:36:00 Weight 2017-07-03 298 [lb_av] [facility] 09:36:00 Body Mass Index 2017-07-03 41.56 kg/m2 [facility] 09:36:00 Temperature 2017-07-03 97.4 [degF] [facility] 09:36:00 BP Systolic 2017-06-19 140 mm[Hg] Location: [facility]; [facility] 15:26:00 Position: Sitting BP Diastolic 2017-06-19 80 mm[Hg] Location: [facility]; [facility] 15:26:00 Position: Sitting Height 2017-06-19 71 [in_us] [facility] 15:26:00 Weight 2017-06-19 298 [lb_av] [facility] 15:26:00 Body Mass Index 2017-06-19 41.56 kg/m2 [facility] 15:26:00 Temperature 2017-06-19 97.9 [degF] [facility] 15:26:00 BP Systolic 2017-06-12 118 mm[Hg] Location: [facility]; [facility] 13:28:00 Position: Sitting BP Diastolic 2017-06-12 80 mm[Hg] Location: [facility]; [facility] 13:28:00 Position: Sitting Height 2017-06-12 71 [in_us] [facility] 13:28:00 Weight 2017-06-12 298 [lb_av] [facility] 13:28:00 Body Mass Index 2017-06-12 41.56 kg/m2 [facility] 13:28:00 BP Systolic 2017-06-09 160 mm[Hg] Location: [facility]; [facility] 09:20:00 Position: Sitting BP Diastolic 2017-06-09 92 mm[Hg] Location: [facility]; [facility] 09:20:00 Position: Sitting Height 2017-06-09 71 [in_us] [facility] 09:20:00 Weight 2017-06-09 298 [lb_av] [facility] 09:20:00 Body Mass Index 2017-06-09 41.56 kg/m2 [facility] 09:20:00 Temperature 2017-06-09 98.2 [degF] [facility] 09:20:00 Respitory [facility] 2016-04-01 [facility] 21:16:00 [...] [facility] 19:15:00 Systolic (mm Hg) 2015-08-10 [facility] 19:15:00 Diastolic (mm Hg) 2015-08-10 [facility] 19:15:00 Respitory Rate 2015-08-10 [facility] 18:00:00 Heart Rate 2015-08-10 [facility] Randy n 18:00:00 Systolic (mm Hg) 2015-08-10 [facility] 18:00:00 Diastolic (mm Hg) 2015-08-10 [facility] 18:00:00 Heart Rate 2015-08-10 [facility] Randy n 17:45:00 Respitory Rate 2015-08-10 [facility] 17:45:00 Systolic (mm Hg) 2015-08-10 [facility] 17:45:00 Diastolic (mm Hg) 2015-08-10 [facility] 17:45:00 BMI Calculated 2015-08-10 [facility] 13:14:00 Weight 2015-08-10 Chrystal Ashtonan n 13:14:00 Temperature Oral 2015-08-03 98.5 F [facility] Mikel rmann (F) 14:50:00 Height 2015-08-03 180.34 cm Chrystal Padilla n 13:51:00 Procedures Procedure Date / Time Performing Clinician Source Performed POCT URINALYSIS DIPSTICK 2021-10-31 19:16:00 Shefali Hooper [facility] POCT URINALYSIS DIPSTICK 2021-10-24 18:43:00 Andressa Puckett [facility] POCT HEMOGLOBIN A1C TEST 2021-10-10 18:23:00 Brody Hinds [facility] REFERRAL- REQUEST/RESPONSE 2021-05-28 05:01:00 Doctor Unaamintaigned , [facility] NOTICE OF PRIVACY 2021-03-26 18:27:07 Doctor Unaamintaigned, [facility] CONSENT/REFUSAL FOR 2021-03-26 18:26:47 Doctor Shana [facility] DIAGNOSIS AND TREATMENT [facility] NOTICE OF PRIVACY 2020-12-18 16:26:34 Doctor Unarip, [facility] CONSENT/REFUSAL FOR 2020-12-18 16:25:51 Doctor Shana [facility] [place] [facility] DIAGNOSIS AND TREATMENT [facility] ASSIGNMENT OF BENEFITS 2020-12-18 16:25:20 Doctor Unassigned, [facility] REFERRAL- REQUEST/RESPONSE 2020-12-08 05:01:00 Doctor Unassigned , [facility] EKG-12 LEAD 2020-12-03 20:44:28 Madonna Jayleenjonathan Mason [facility] NOTICE OF PRIVACY 2020-12-03 19:10:09 Doctor Unassigned, [facility] PRACTICES [facility] MRI BRAIN W WO CONTRAST 2020-05-05 18:29:00 Vidal Ortiz [facility] POC GLUCOSE 2020-05-05 17:10:00 Rafaela Minor [facility] TTE COMPLETE, WO CONTRAST, 2020-05-05 15:22:00 Vidal Ortiz [facility] W AGITATED SALINE ([id number]) POC GLUCOSE 2020-05-05 12:19:00 Rafaela Minor [facility] HC COMPLETE BLD COUNT 2020-05-05 10:15:00 carito [facility] W/AUTO DIFF BASIC METABOLIC PANEL 2020-05-05 10:15:00 [facility] VITAMIN B12 LEVEL 2020-05-05 10:15[facility]00 [facility] VITAMIN B1 LEVEL, WHOLE 2020-05-05 10:15:00 [facility] BLOOD THYROID STIMULATING 2020-05-05 10:15[facility]00 [facility] 2020-05-05 10:15:00 Vidal Ortiz spital HEMOGLOBIN A1C 2020-05-05 10:15:00 [facility] 2020-05-05 10:15[facility]00 [facility] RAPID HIV 1 & 2 2020-05-05 10:15:00 Vidal Ortiz spital SYPHILIS TREPONEMA SCREEN 2020-05-05 10:15:00 Vidal Ortiz [facility] WITH RPR CONFIRMATION (REVERSE ALGORITHM) ESTIMATED GFR 2020-05-05 10:15:00 Chloe [facility] C-REACTIVE PROTEIN 2020-05-05 10:15:00 Vidal Ortiz [facility] POC GLUCOSE 2020-05-05 01:38:00 Chloe [facility] POC GLUCOSE 2020-05-04 22:14:00 Chloe Minor [facility] URINE CULTURE 2020-05-04 20:33:00 Tom Means [facility] URINALYSIS SCREEN AND 2020-05-04 20:33:00 Tom Means [facility] MICROSCOPY, WITH REFLEX TO CULTURE COVID-19 QUALITATIVE 2020-05-04 20:27:00 Tom Means [facility] RT-PCR ECG 12-LEAD 2020-05-04 20:21:36 [facility] WO 2020-05-04 19:46:05 Tom Means [facility] CONTRAST CT ANGIOGRAM HEAD W WO 2020-05-04 19:45:38 Tom Means [facility] CONTRAST CT STROKE BRAIN WO 2020-05-04 19:36:06 Tom Means [facility] CONTRAST HC COMPLETE BLD COUNT 2020-05-04 19:19:00 Tom Means [facility] W/AUTO DIFF PARTIAL THROMBOPLASTIN 2020-05-04 19:19:00 Tom Means [facility] TIME (PTT) PROTHROMBIN TIME WITH INR 2020-05-04 19:19:00 Tom Means [facility] COMPREHENSIVE METABOLIC 2020-05-04 19:19:00 Tom Means [facility] PANEL ESTIMATED GFR 2020-05-04 19:19:00 Tom Means [facility] [[facility]] CULTURE, URINE, 2017-08-27 00:00:00 [facility]] CULTURE, URINE, 2017-08-21 00:00:00 [facility] [[facility]] CULTURE, URINE, 2017-06-09 00:00:00 [facility] ROUTINE CHILO - Endometrial laser [facility] ablation Limbal stem cell [facility] transplantation ORIF - Open reduction and [facility] [place] internal fixation of fracture Tendon operation [facility] Randy iqbal [facility]le [facility] With Endometrial [facility] Plan of Care Planned Activity Planned Date Details Comments Source Future Scheduled 2021-10-19 COVID-19 VACCINE (#1) [facility] Test 10:53:01 [code = COVID-19 VACCINE (#1)] Future Scheduled 2021-10-19 Pneumococcal Vaccine: [facility] Test 10:53:01 Pediatrics (0 to 5 Years) and At-Risk Patients (6 to 64 Years) (1 - PCV) [code = Pneumococcal Vaccine: Pediatrics (0 to 5 Years) and At-Risk Patients (6 to 64 Years) (1 - PCV)] Future Scheduled 2021-10-19 Hepatitis C screening [facility] Test 10:53:01 (procedure) [code = 273570346] Future Scheduled 2021-10-19 SHINGLES VACCINES ([address] [facility] Test 10:53:01 of 2) [code = SHINGLES VACCINES (1 of 2)] Future Scheduled 2021-10-19 Screening for [facility] Test 10:53:01 malignant neoplasm of cervix (procedure) [code = 946622343] Future Scheduled 2021-10-19 BREAST CANCER [facility] Test 10:53:01 SCREENING [code = BREAST CANCER SCREENING] Future Scheduled 2021-10-19 COLONOSCOPY SCREENING [facility] Test 10:53:01 [code = COLONOSCOPY SCREENING] Future Scheduled 2021-10-19 HEPATITIS B VACCINES Met [facility] Test 10:53:01 (1 of 3 - Risk 3-dose series) [code = HEPATITIS B VACCINES (1 of 3 - Risk 3-dose series)] Future Scheduled 2021-10-19 INFLUENZA VACCINE Method [facility] Test 10:53:01 [code = INFLUENZA VACCINE] Future Scheduled DIABETES: RETINAL EYE [facility] Test EXAM [code = DIABETES: RETINAL EYE EXAM] Future Scheduled DIABETIC FOOT EXAM [facility] Test [code = DIABETIC FOOT EXAM] Future Scheduled URINE MICROALBUMIN [facility] Test [code = URINE MICROALBUMIN] Future Scheduled COVID-19 VACCINE (1) Met [facility] Hospital Test [code = COVID-19 VACCINE (1)] Future Scheduled [facility] C [facility] Test (procedure) [code = 300976492] Future Scheduled Screening [facility] Test malignant neoplasm of cervix (procedure) [code = 885896650] Future Scheduled BREAST CANCER [facility] Test SCREENING [code = BREAST CANCER SCREENING] Future Scheduled COLONOSCOPY [facility]CRE[facility]ING [facility] Test [code = COLONOSCOPY SCREENING] Future Scheduled SHINGLES VACCINES (#1) [facility] [code = SHINGLES VACCINES (#1)] Future Scheduled [facility]ZA [facility]ACC[facility] [code = INFLUENZA VACCINE] Encounters Start End Encounter Admission Attending Care Care Encounter Source Date/Time Date/Time Type Type Clinicians Facility Department ID 2021-11-27 Outpatient ED [facility] [id number] [place] 10:51:[address] [place] [address] 2021-10-16 Outpatient Travis, STLMLC STLMLC [id number] Common 14:20:00 [facility] 2021-08-20 Outpatient Travis, STLMLC STLMLC [id number] Common 08:10:01 [facility] 2021-08-16 Outpatient Travis, STLMLC STLMLC [id number] Common 15:42:00 [facility] 2021-07-10 Outpatient Travis, STLMLC STLMLC [id number] Common 08:19:00 [facility] 2021-05-08 Outpatient Travis, STLMLC STLMLC [id number] Common 15:07:00 [facility] 2021-03-29 Outpatient DERESKA, ED [facility] [id number] [place] 16:38:20 [facility] 2021-03-14 Outpatient DERESKA, ED [facility] [id number] [place] 10:48:45 [facility] 2021-03-14 Outpatient Travis, STLMLC STLMLC [id number] Common 09:24:01 [facility] 2021-03-07 Outpatient Travis, STLMLC STLMLC [id number] Common 14:38:44 [facility] 2021-03-07 Outpatient Travis, STLMLC STLMLC [id number] Common 14:34:38 Luciano [facility] 2021-03-07 Outpatient Travis, STLMLC STLMLC [id number] Common 14:19:07 Luciano [facility] 2021-03-07 Outpatient Travis, STLMLC STLMLC Common 14:06:31 Luciano [facility] 2021-03-07 Outpatient Travis, STLMLC STLMLC [id number] Common 14:06:01 Luciano [facility] 2021-03-07 Outpatient Travis, STLMLC STLMLC Common 14:05:29 Luciano [facility] 2021-03-07 Outpatient Travis, STLMLC STLMLC Common 13:56:00 Luciano [facility] 2021-03-07 Outpatient Travis, STLMLC STLMLC Common 13:49:17 Luciano 83401 [facility] 2021-03-07 Outpatient Travis, STLMLC STLMLC Common 12:29:42 Luciano 55450 [facility] 2021-03-07 Outpatient Travis, STLMLC STLMLC Common 12:27:48 Luciano [facility] 2021-03-07 Outpatient Travis, STLMLC STLMLC [id number] Common 12:27:16 Luciano [facility] 2021-03-07 Outpatient Travis, STLMLC STLMLC [id number] Common 12:25:19 Luciano [facility] 2021-03-07 Outpatient Travis, STLMLC STLMLC Common 12:24:57 Luciano [facility] 2021-03-07 Outpatient Travis, STLMLC STLMLC Common 12:21:52 Luciano 34326 [facility] 2021-03-07 Outpatient Travis, STLMLC STLMLC [id number] Common 12:21:15 Luciano 76262 [facility] 2021-03-07 Outpatient Travis, STLMLC STLMLC [id number] Common 12:20:49 Luciano 25107 [facility] 2021-03-07 Outpatient Travis, STLMLC STLMLC [id number] Common 12:19:53 Luciano 66633 [facility] 2021-03-07 Outpatient Travis, STLMLC STLMLC [id number] Common 11:37:00 Luciano 46613 [facility] 2021-03-07 Outpatient Travis, STLMLC STLMLC [id number] Common 11:36:58 Luciano 20049 [facility] 2021-03-07 Outpatient Travis, STLMLC STLMLC [id number] Common 11:33:09 Luciano 84856 [facility] 2021-03-07 Outpatient Travis, STLMLC STLMLC [id number] Common 11:31:11 Luciano 35626 [facility] 2021-03-07 Outpatient Travis, STLMLC STLMLC [id number] Common 11:06:28 Luciano 19071 [facility] 2021-01-10 Outpatient [facility] [id number] [place] 10:36:54 [employer] 2021-01-10 [facility] [id number] [place] 09:52:[address] 2020-12-12 Emergency [facility] [id number] Univers [facility]:13[facility] [id number] [place] 15:05:59 SHEF[facility]I [facility] 2020-11-24 [facility] [id number] [place] 14:12:16 [facility] 2020-11-24 [facility] [id number] [place] 13:57:[address] 2020-11-13 [facility] [id number] [place] 12:16:17 SHEFALI Health 2022-04-24 2022-04-24 Outpatient LAVERN ED [facility] [id number] [place] 11:00:00 11:00:00 ANDRESSA [facility] 2021-12-05 2021-12-05 Outpatient LAVERN ED [facility] [id number] [place] 14:50:00 14:50:00 ANDRESSA [facility] 2021-11-14 2021-11-14 Telephone Chavez [place] [id number] [id number] [facility] 00:00:00 00:00:00 [facility] [employer] 350.1.13.10 it y of [place] 4.2.7.2.686 Lionel as DAMIAN?BLEA [phone] [address] OFFICE BUILDING 2021-10-31 2021-10-31 Office Michael [facility] 1.2.615.047 [id number] [place] 13:30:00 14:24:45 Visit Shefali SUGAR 350.1.13.58 He alth [place] 9.2.7.2.686 [address] [phone] AND 5 WOMENS 2021-10-24 2021-10-24 Procedure Lavern [facility] 1.2.840.114 [id number] OR 13:40:00 14:27:30 Visit Andressa SUGAR 350.1.13.58 alth [place] 9.2.7.2.686 [address] 4 [phone] AND 5 WOMENS 2021-10-17 2021-10-17 [facility] [id number] Co mmon 00:00:00 00:00:00 VISIT Spirit ESTAB PT - CHI LEVEL 4 [facility] 2021-10-11 2021-10-11 (TEL) [facility] [id number] Co mmon 00:00:00 00:00:00 Spirit - CHI [facility] 2021-10-10 2021-10-10 Outpatient Sanford HINDS ORCAMILA RUST [id number] Univers 13:30:00 14:23:09 [facility] 2021-10-10 2021-10-10 Office Chavez [place] 1.2.840.114 [id number] Univers 13:30:00 14:23:09 Visit [facility] 350.1.13.10 it [facility] 4.2.7.2.686 Lionel as DAMIAN?BLEA [phone] [address] MEDICAL OFFICE BUILDING 2021-10-09 2021-10-09 (TEL) STLMLC STLMLC [id number] Co mmon 00:00:00 00:00:00 [facility] 2021 2021 (TEL) STLMLC STLMLC [id number] Co mmon 00:00:00 00:00:00 [facility] 2021-08-14 2021-08-14 (TEL) STLMLC STLMLC [id number] Co mmon 00:00:00 00:00:00 [facility] 2021-08-07 2021-08-07 [facility] [id number] Univers 15:30:00 15:30:00 [facility] 2021-07-23 2021-07-23 Telephone [facility] 1.2.313.519 [id number] Univers 00:00:00 00:00:00 [facility] 350.1.13.10 it y of [place] 4.2.7.2.686 Lionel as DAMIAN?BLEA [phone] [address] MEDICAL OFFICE [facility] 2021-07-18 2021-07-18 [facility] [id number] Co mmon 00:00:00 00:00:00 VISIT [facility] LEVEL 4 [facility] 2021-05-29 2021-05-29 [facility] [id number] Univers 10:30:00 10:30:00 [facility] 2021-05-28 2021-05-28 Orders Doctor CAREY 1.2.840.114 [id number] Univers 00:00:00 00:00:00 Only Unassigned, BETY 350.1.13.10 ity of [place] [facility] 4.2.7.2.686 Lionel as [phone] [address] 2021-05-25 2021-05-25 (TEL) STLC STLC [id number] Co mmon 00:00:00 00:00:00 Spirit - CHI [facility] 2021-04-16 2021-04-[address] Sp[place] [facility] 1.2.840.1 14 [id number] [place] 00:00:00 00:00:00 Ct Sp[place] 350.1.13.58 [facility] 9.2.7.2.686 PLA[address] 6 [phone] AND 2 WOMENS 2021-04-03 2021-04-03 [facility] [id number] Univers 10:00:00 10:00:00 BRODY [facility] 2021-04-03 2021-04-03 [facility] [id number] Co mmon 00:00:00 00:00:00 VISIT [facility] PT - CHI LEVEL 4 [facility] 2021-03-26 2021-03-26 Emergency X [facility] ERT [id number] Univers 12:42:00 13:51:00 RASHMI [facility] 2021-03-26 2021-03-26 Emergency [facility] [id number] [id number] Univers 12:42:00 13:51:00 Rashmi PERRIN 350.1.13.10 i ty [facility] 4.2.7.2.686 [facility] [phone] [facility] [address] Branch 2021-03-26 2021-03-26 Orders Doctor AURELIO 1.2.840.114 [id number] Univers 00:00:00 00:00:00 Only Unassigned, BETY 350.1.13.10 [facility] 4.2.7.2.686 Lionel as [phone] [facility] [address] Branch 2021-03-26 2021-03-26 (TEL) [facility] [id number] Co mmon 00:00:00 00:00:00 Spirit - CHI [facility] 2021-03-14 2021-03-[address] Spence [facility] 1.2.840.1 14 [id number] [place] 00:00:00 00:00:00 Ct Spence [place] 350.1.13.58 Health [place] [facility] 9.2.7.2.686 [address] 6 [phone] AND 2 WOMENS 2021-03-12 2021-03-[address] Spence [facility] 1.2.840.1 14 [id number] [place] 00:00:00 00:00:00 Ct Spence SUGAR 350.1.13.58 Health [facility] 9.2.7.2.686 PLA[address] 5 [phone] AND 2 WOMENS 2021-03-09 2021-03-[address] Spence [facility] 1.2.840.1 14 [id number] [place] 00:00:00 00:00:00 Ct Spence [place] 350.1.13.58 Health [facility] 9.2.7.2.686 PLA[address] 2 [phone] AND 2 WOMENS 2021-03-07 2021-03-07 Outpatient R CHAVEZ [facility] [id number] Univers 14:30:00 14:30:00 [facility] 2021-03-06 2021-03-06 Telephone [facility] 1.2.200.184 [id number] Univers 00:00:00 00:00:00 [facility] [employer] 350.1.13.10 it y of [place] 4.2.7.2.686 Lionel as DAMIAN?BLEA [phone] [address] MEDICAL OFFICE BUILDING 2021-03-05 2021-03-05 [facility] [id number] Co mmon 00:00:00 00:00:00 VISIT Spirit ESTAB PT - CHI LEVEL 4 [facility] 2021-03-05 2021-03-05 SUB [facility]AL [facility] [id number] Common 00:00:00 00:00:00 MCR Spirit WELLNESS - CHI VISIT [facility] 2021-03-01 2021-03-01 (TEL) [facility] [id number] Co mmon 00:00:00 00:00:00 Spirit - CHI [facility] 2021-02-28 2021-02-28 (TEL) [facility] ST[facility] [id number] Co mmon 00:00:00 00:00:00 [facility] 2021-02-27 2021-02-27 (TEL) STLMLC STLMLC [id number] Co mmon 00:00:00 00:00:00 [facility] 2021-02-26 2021-02-26 (TEL) STLMLC STLMLC [id number] Co mmon 00:00:00 00:00:00 [facility] 2021-01-03 2021-01-03 (TEL) STLMLC STLMLC [id number] Co mmon 00:00:00 00:00:00 [facility] 2020-12-27 2020-12-27 (TEL) STLMLC STLMLC [id number] Co mmon 00:00:00 00:00:00 [facility] 2020-12-18 2020-12-18 Hospital Radiology RUST 1.2.840.114 [id number] Univers 10:28:59 23:59:00 Encounter [place] 350.1.13.10 ity [facility] 4.2.7.2.686 [facility] [phone] [facility] 8[address] Branch 2020-12-18 2020-12-18 Outpatient R RADIOLOGY [facility] [id number] Univers 00:00:00 23:59:00 ity of [facility] 2020-12-18 2020-12-18 Orders Doctor AURELIO 1Fabian2.840.114 [id number] Univers 00:00:00 00:00:00 Only Unassigned, BETY 350.1.13.10 ity of [place] [facility] 4.2.7.2.686 Lionel as [phone] [facility] [address] 2020-12-08 2020-12-08 Orders Doctor AURELIO 1Fabian2.840.114 [id number] Univers 00:00:00 00:00:00 Only Unassigned, BETY 350.1.13.10 ity of [place] [facility] 4.2.7.2.686 Lionel as [phone] [facility] [address] 2020-12-07 2020-12-07 OFFICE STLMLC STLMLC [id number] Co mmon 00:00:00 00:00:00 VISIT [facility] PT [facility] LEVEL 4 [facility] 2020-12-07 2020-12-07 (TEL) STLMLC STLMLC [id number] Co mmon 00:00:00 00:00:00 [facility] 2020-12-06 2020-12-06 (TEL) STLMLC STLMLC [id number] Co mmon 00:00:00 00:00:00 Spirit [facility] 2020-12-05 2020-12-05 (TEL) STLMLC STLMLC [id number] Co mmon 00:00:00 00:00:00 [facility] 2020-12-04 2020-12-04 (TEL) STLMLC STLMLC [id number] Co mmon 00:00:00 00:00:00 [facility] 2020-12-04 2020-12-04 (TEL) STLMLC STLMLC [id number] Co mmon 00:00:00 00:00:00 [facility] 2020-12-03 2020-12-03 Emergency [facility] RUST 1.2.466.393 [id number] [facility] 14:18:00 16:20:00 Greg Perrin 350.1.13.10 ity of [place] 4.2.7.2.686 [facility] [phone] [facility] [address] Branch 2020-12-03 2020-12-03 Orders Doctor CAREY 1.2.840.114 [id number] Univers 00:00:00 00:00:00 Only Unassigned, BETY 350.1.13.10 ity of [place] [facility] 4.2.7.2.686 [facility] [phone] [facility] [address] 2020-11-27 2020-11-27 Orders RHIANNON Hooper [facility] 1.2.937.768 [id number] [place] 00:00:00 00:00:00 Only Shefali SUGAR 350.1.13.58 He [facility] 9.2.7.2.686 [address] 9 [phone] AND 5 WOMENS 2020-11-272020-11-[address] Spence [facility] 1.2.840.1 14 [id number] [place] 00:00:00 00:00:00 Ct Sp[place] 350.1.13.58 [facility] 9.2.7.2.686 [address] 5 [phone] AND 2 WOMENS 2020-11-24 2020-11-24 Office RHIANNON Hooper [facility] 1.2.263.193 [id number] OR 14:14:20 15:06:05 Visit Shefali SMITH 350.1.13.58 [facility] 9.2.7.2.686 [address] 1 [phone] AND 5 WOMENS 2020-11-10 2020-11-10 (TEL) STLMLC STLMLC [id number] Co mmon 00:00:00 00:00:00 [facility] 2020-10-26 2020-10-26 OFFICE STLMLC STLMLC [id number] Co mmon 00:00:00 00:00:00 VISIT [facility] LEVEL 4 [facility] 2020-10-26 2020-10-26 (TEL) STLMLC STLMLC [id number] Co mmon 00:00:00 00:00:00 [facility] 2020-10-12 2020-10-12 Outpatient STLMLC STLMLC [id number] Common 00:00:00 00:00:00 [facility] 2020-09-28 2020-09-28 Documentat Nida Wheeler 1.2.840.1 [id number] Methodi 00:00:00 00:00:[address] 3.430.2.7 Hospit a .3.982206 l .8 2020-08-16 2020-08-16 Yanet Carney [place] 1.2.821.740 [id number] [facility] 00:00:00 00:00:00 Adriana Perrin 350.1.13.10 i [place] [phone] Ok dical [address] 2020-07-19 2020-07-19 Outpatient R ANGELIKA [facility] [id number] Univers 09:00:00 09:00:00 ADRIANA stan [facility] 2020-06-22 2020-06-22 Office Nida Wheeler 1.2.840.1 [id number] Methodi 09:54:22 10:40:[address] 3.430.2.7 Hospit a .3.038544 l .8 2020-06-22 2020-06-22 Travel 1.2.840.1 1.2.179.354 [id number] Methodi 00:00:00 00:00:[address] 3.430.2.7 0.2.7.3.698 Ho spita .3.585834 084.8 l .8 2020-06-21 2020-06-21 Office Adriana Carney [place] 1.2.840.11 4 [id number] Univers 14:30:27 16:08:05 Visit SwapnilGoldie panchal Antony Perrin 350.1.13.10 ity [facility] [place]7.2.[place] [phone] Ok dical nal [address] [place] [address] 2020-06-21 2020-06-21 Outpatient R SWAPNILBARRIE [facility] [id number] Univers 15:00:00 15:00:00 GOLDIE pierce [facility] 2020-06-21 2020-06-21 Telephone [facility] 1.2.840.114 [id number] Univers 00:00:00 00:00:00 Adriana Perrin 350.1.13.10 i ty [place] [phone] Ok dical nal [address] [place] [address] 2020-06-01 2020-06-01 Outpatient STLMLC STLMLC [id number] Common 00:00:00 00:00:00 [facility] 2020-06-01 2020-06-01 Outpatient STLMLC STLMLC [id number] Common 00:00:00 00:00:00 [facility] 2020-05-30 2020-05-30 Travel 1.2.840.1 1.2.815.328 [id number] Methodi 00:00:00 00:00:[address] 3.430.2.7 0.2.7.3.698 Ho spita .3.271212 084.8 l .8 2020-05-26 2020-05-26 Outpatient STLMLC STLMLC [id number] Common 00:00:00 00:00:00 [facility] 2020-05-17 2020-05-17 Outpatient STLMLC STLMLC [id number] Common 00:00:00 00:00:00 [facility] 2020-05-04 2020-05-05 Emergency Kingsley Corado 1.2.840.1 [id number] Methodi 13:01:00 16:43:00 Chloe Minor [address]683.1.[address] 3.430.2.7 Hospit a .3.314670 l .8 2020-05-04 2020-05-04 Travel 1.2.840.1 1.2.563.683 [id number] Methodi 00:00:00 00:00:[address] 3.430.2.7 0.2.7.3.698 Ho spita .3.165447 084.8 l .8 2020-04-14 2020-04-14 Outpatient STLMLC STLMLC [id number] Common 00:00:00 00:00:00 [facility] 2020-04-10 2020-04-10 Outpatient STLMLC STLMLC [id number] Common 00:00:00 00:00:00 [facility] 2020-03-31 2020-03-31 Outpatient STLMLC STLMLC [id number] Common 00:00:00 00:00:00 [facility] 2020-03-23 2020-03-23 Outpatient STLMLC STLMLC [id number] Common 00:00:00 00:00:00 [facility] 2020-03-23 2020-03-23 Outpatient STLMLC STLMLC [id number] Common 00:00:00 00:00:00 [facility] 2020-03-14 2020-03-14 Outpatient STLMLC STLMLC [id number] Common 00:00:00 00:00:00 [facility] 2020-03-07 2020-03-07 Outpatient STLMLC STLMLC [id number] Common 00:00:00 00:00:00 [facility] 2020-02-28 2020-02-28 Outpatient STLMLC STLMLC [id number] Common 00:00:00 00:00:00 [facility] 2020-02-24 2020-02-24 Outpatient STLMLC STLMLC [id number] Common 00:00:00 00:00:00 [facility] 2020-02-23 2020-02-23 Outpatient STLMLC STLMLC [id number] Common 00:00:00 00:00:00 [facility] 2020-02-23 2020-02-23 Outpatient STLMLC STLMLC [id number] Common 00:00:00 00:00:00 [facility] 2019-11-24 2019-11-25 Outpt Diag nullFlavo [facility] [address] [id number] Memoria 14:28:00 04:59:00 Services r Outpatient 03 l Imaging [facility] 2019-11-24 2019-11-25 Outpt Diag nullFlavo [facility] [address] [id number] Memoria 14:28:00 04:59:00 Services r Outpatient 03 l Imaging [facility] 2019-11-24 2019-11-24 Outpatient VY Main OIP [id number] 09:28:00 23:59:00 Rena Clements 2019-11-11 2019-11-11 Outpatient STLMLC STLMLC [id number] Common 00:00:00 00:00:00 [facility] 2019-11-02 2019-11-02 Outpatient STLMLC STLMLC [id number] Common 00:00:00 00:00:00 [facility] 2019-11-02 2019-11-02 Outpatient STLMLC STLMLC [id number] Common 00:00:00 00:00:00 [facility] 2019-10-27 2019-10-27 Outpatient [facility] [id number] Common 14:10:00 14:10:[address] [facility] 2019-10-27 2019-10-27 Outpatient [facility] [id number] Common 10:59:00 10:59:[address] [facility] 2019-10-12 2019-10-12 Outpatient [facility] [id number] Common 08:20:00 08:20:[address] [address] [facility] 2019-09-22 2019-09-22 [facility] [id number] Common 08:30:00 08:30:[address] [address] [facility] 2019-08-10 2019-08-10 [facility] [id number] Common 13:30:00 13:30:[address] [address] [facility] 2019-04-02 2019-04-02 [facility] [id number] Common 15:07:00 15:07:[address] [address] [facility] 2019-03-16 2019-03-16 [facility] [id number] Common 17:04:00 17:04:[address] [address] [facility] 2018-12-03 2018-12-03 [facility] [id number] Common 16:41:00 16:41:[address] [address] [facility] [facility] 2018-11-18 2018-11-18 [facility] [id number] Common 08:00:00 08:00:[address] [facility] 2018-07-22 2018-07-22 [facility] [id number] Common 08:30:00 08:30:[address] [facility] 2018-06-10 2018-06-10 [facility] [id number] Common 09:53:00 09:53:[address] [facility] 2018-03-23 2018-03-23 [facility] [id number] Common 14:00:00 14:00:[address] [facility] 2018-03-19 2018-03-19 [facility] [id number] Common 10:45:00 10:45:[address] [facility] 2017-11-10 2017-11-10 [facility] [id number] Common 10:15:00 10:15:[address] [facility] 2017-11-06 2017-11-06 [facility] [id number] Common 08:00:00 08:00:[address] [address] [facility] 2017-09-23 2017-09-23 [facility] 15 [id number] Common 16:07:00 16:07:[address] [facility] 2017-09-03 2017-09-03 AppointRHIANNON Su [facility] 4 [id number] [place] 11:00:00 11:00:00 t; KARISSA CLEANING gy Center [facility] ans KARISSA CLEANING 2017-08-27 2017-08-27 AppointRHIANNON Su [facility] 4 [id number] [place] 14:10:00 14:10:00 t; KARISSA CLEANING gy Center Ph [facility] ans KARISSA CLEANING 2017-08-21 2017-08-21 AppointRHIANNON Su UroGynecol[facility] 4 [id number] [place] 10:10:00 10:10:00 t; KARISSA CLEANING gy Center [facility] KARISSA CLEANING 2017-08-14 2017-08-14 Appointmen HALHUNGJARRETT, UTP U[facility]Gynecol[facility] 4 [id number] [place] 11:00:00 11:00:00 t; KARISSA CLEANING gy Center [facility] KARISSA CLEANING 2017-07-31 2017-07-31 Appointmen HALROCHELLE, UTP U[facility]necol[facility] 4 [id number] [place] 14:10:00 14:10:00 t; KARISSA CLEANING gy Center [facility] KARISSA CLEANING 2017-07-24 2017-07-24 Appointmen HALHUNGOK, UTP UroGynecol[facility] 4 [id number] [place] 13:20:00 13:20:00 t; KARISSA CLEANING gy Center [facility] KARISSA CLEANING 2017-07-17 2017-07-17 Appointmen HALROCHELLE, UTP UroGynecol[facility] 4 [id number] [place] 14:10:00 14:10:00 t; KARISSA CLEANING gy Center [facility] KARISSA CLEANING 2017-07-03 2017-07-03 Appointmen UROGYN1, UTP Women's [id number] [place] 09:00:00 09:00:00 t; [facility] Physic i UROGYN1, [facility] [place] 2017-06-26 2017-06-26 Appointmen HALHUNGJARRETT, UTP UroGynecolo 4 [id number] [place] 09:00:00 09:00:00 t; KARISSA CLEANING gy Center [facility] KARISSA CLEANING 2017-06-25 2017-06-25 [facility] [id number] Common 09:30:00 09:30:00 t [employer] [facility] it [employer] [facility] 2017-06-19 2017-06-19 Appointguerita HOOPER, UTP U[facility]Gynecol[facility] 4 [id number] [place] 15:20:00 15:20:00 t; KARISSA CLEANING gy Center [facility] KARISSA CLEANING 2017-06-12 2017-06-12 Appointmen HALROCHELLE, UTP UroGynecolo 4 [id number] [place] 13:20:00 13:20:00 t; KARISSA CLEANING [facility] SHEFALI, SUPERVISOR CAB 2017-06-09 2017-06-09 Appointmen HALBROOK, UTP UTP [id number] [place] 09:20:00 09:20:00 t; SHEFALI, SUPERVISOR [employer] Phys ici HALBROOK, ans SHEFALI, SUPERVISOR CAB 2016-12-19 2016-12-19 Appointmen HALBROOK, UTP UTP [id number] [place] 10:10:00 10:10:00 t; SHEFALI [employer] Phys ici HALBROOK, ans SHEFALI, SUPERVISOR CAB 2016-11-28 2016-11-28 Appointmen HALBROOK, UTP UTP [id number] [place] 10:10:00 10:10:00 t; SHE[employer]I [employer] Phys ici HALBROOK, ans SHEFALI, SUPERVISOR CAB 2016-09-12 2016-09-12 Appointmen HALBROOK, UTP UTP [id number] [place] 13:20:00 13:20:00 t; SHEFALI [employer] Phys ici HALBROOK, ans SHEFALI, SUPERVISOR [employer] 2016-04-01 2016-04-01 Emergency nullFlavo [facility] [id number] Memoria 17:43:00 23:41:00 r [place] 02 l [place] 2016-04-01 2016-04-01 Emergency nullFlavo [facility] [id number] Memoria 17:43:00 23:41:00 r [place] 02 l [place] 2016-04-01 2016-04-01 Outpatient Julio C [place] SL [facility]SL [id number] 11:43:00 17:41:00 In[place] 02 2015-11-30 2015-11-[facility] HALHUNGOK, UTP UTP [id number] [place] 09:00:00 09:00:00 t; KARISSA CLEANING Phys ici HALBROOK, ans SHEFALI, SUPERVISOR [employer] 2015-10-20 2015-10-20 Appointmen DERESUSANA, UTP UTP [id number] [place] 10:10:00 10:10:00 t; Preeti CARTER ans NINA, M.D. 2015-09-21 2015-09-21 Appointmen LAVERN, UTP UTP [id number] [place] 13:00:00 13:00:00 t; ANDRESSA, M.Dmar Chance M.D. 2015-08-10 2015-08-10 OBS Day [facility]Flavo [facility] [id number] Memoria 12:24:00 19:42:00 Surgery r [place] 00 l [place] 2015-08-10 2015-08-10 OBS Day nullFlavo [facility] [id number] Memoria 12:24:00 19:42:00 Surgery r [place] 00 l [place] 2015-08-10 2015-08-10 Outpatient CONRADO Puckett [facility] [id number] 07:24:00 14:42:00 Andressa 00 [place] 2015-08-10 2015-08-10 [facility] [place], [facility] UTP [id number] [place] 09:30:00 09:30:00 t; Preeti CARTER ans NINA, M.D. 2015-08-02 2015-08-02 [facility] [place] [facility] UTP [id number] [place] 08:30:00 08:30:00 t; Preeti CARTER ans NINA, M.D. 2015-07-05 2015-07-05 [facility] [place] [facility] UTP [id number] [place] 08:30:00 08:30:00 t; Preeti CARTER ans NINA, M.D. 2015-04-28 2015-04-29 Outpt Diag nullFlavo [facility] [address] [id number] Memoria 15:30:00 04:59:00 Services r Outpatient 02 l Imaging - Randy rasheed Elise 2015-04-28 2015-04-29 Outpt Diag nullFlavo [facility] [address] [id number] Memoria 15:30:00 04:59:00 Services r Outpatient 02 l Imaging - Randy n Gosia 2015-04-28 2015-04-28 Outpatient Lavern [id number] 10:30:00 23:59:00 Adnressa [id number] [place] [id number] 2011-09-02 2011-09-02 [facility] [id number] [facility] 08:48:00 08:48:00 00 antony [place] 2011-09-02 2011-09-[id number] [facility] 08:48:00 08:48:00 00 antony English Results Test Description Test Time Test Comments Results Result Comments Source POCT urinalysis dipstick manually resulted 2021-10-31 19:16: 00 Test Item Value Reference Range Interpretation Comme nts Glucose, UA (test code = 1000 mg/dL Negative A 3384415) Bilirubin, UA (test code = Negative Negative 6356677) Ketones, Urine (test code = Negative Negative, Trace 96467-7) Spec Grav, UA (test code = 582414838) Blood, UA (test code = Mod 572785791) pH, UA (test code = 5.0-8.5 2955351) Protein, UA (test code = Negative Negative, Trace, 1963262) 200(+2)mg/dL, 15/mg/dL Urobilinogen, UA (test code See_Comment [Automated message] The = 4972888) system which ge nerated this result tra nsmitted reference range : 0.2. The reference r lv was not used to int erpret this result as normal/abnormal . Nitrite, UA (test code = Negative Negative, Trace 2224036) Leukocytes, UA (test code = Negative Negative, Trace 4619648) Lab Interpretation (test Abnormal code = 59738-6) [facility] urinalysis dipstick manually [id number] 18:43:00 Test Item Value Reference Range Interpretation Comments Glucose, UA (test code 500 mg/dL Negative A = 1443236) Bilirubin, UA (test Negative Negative code = 1029201) Ketones, Urine (test Negative Negative, Trace code = 78199-8) Spec Grav, UA (test code = 135509787) Blood, UA (test code = Trace 861150844) pH, UA (test code = 5.0-8.5 0934264) Protein, UA (test code Negative Negative, Trace, = 1582167) 200(+2)mg/dL, 15/mg/dL Urobilinogen, UA (test See_Comment [Aut omated code = 1980086) message] The system which generated this result transmitted reference range : 0.2. The refere nce range was not u sed to interpret th is result as normal/abnormal . Nitrite, UA (test code Negative Negative, Trace = 6924214) Leukocytes, UA (test Negative Negative, Trace code = 5365355) Lab Interpretation Abnormal (test code = 80153-8) [facility] HEMOGLOBIN A1C [id number] 18:23:00 Test Item Value Reference Range Interpretation Comments POCT HBA1C (test code = 4548-4) 14 % 4-6 A Lab Interpretation (test code = Abnormal 05009-8) [facility] HEMOGLOBIN A1C [id number] 18:23:00 Test Item Value Reference Range Interpretation Comments POCT HBA1C (test code = 4548-4) 14 % 4-6 A Lab Interpretation (test code = Abnormal 61003-2) [facility] 12 [id number] 00:09:04 Test Item Value Reference Range Interpretation Comments Ventricular rate (test code = 253) Atrial rate (test code = 255) VA interval (test code = 266) QRSD interval (test code = 260) QT interval (test code = 264) QTC interval (test code = 265) P axis 1 (test code = 267) QRS axis 1 (test code = 268) T wave axis (test code = 270) EKG impression (test Normal sinus code = 273) rhythm-Prolonged QT-Abnormal ECG-In automated comparison with ECG of 20-DEC-2015 08:42,-Nonspecific T wave abnormality no longer evident in Lateral leads[facility], (w Contrast, Strain and 3D if needed)2020-05-05 21:56:13 Test Item Value Reference Range Interpretation Comments AoV Area, Vmax (test 3.00 cm2 code = 7731234163) AoV Area, VTI (test 2.90 cm2 code = 3806415405) AoV Mean PG (test code mmHg = 4078340013) AoV Peak PG (test code mmHg = 1258855560) AoV Vmax (test code = 1.31 m/s 6087269445) AoV VTI (test code = 0.26 m 2717224990) IVS,d (test code = 1.03 cm 4095120450) IVS/LVPW,2D (test code = 3805140398) Left Atrium Dimension 4.40 cm Anterior (test code = 5734189234) LV,d (test code = 5.15 cm 1159142594) LV EF,2D (test code = 55.90 % 1330491175) LV,s (test code = 3.92 cm 3574697277) LVOT area (test code = 3.14 cm2 4398933262) LVOT Diam,S (test code 2.00 cm = 8518899661) LVOT Vmax (test code = 1.25 m/s 1734046057) LVOT VTI (test code = 0.24 m 5879439485) LVPWD,d (test code = 0.86 cm 7842555674) PV Pk Grad (test code = mmHg 2696559445) PV VMAX (test code = 0.90 m/s 8937168683) RVOT Vmax (test code = 0.78 m/s 5269404953) TR Vpeak (test code = 2.34 mm/s 6332563531) MV E A ratio (test code = 7275717046) TR pk grad (test code = mmHg 6569849268) MR Vmax (test code = 4.27 m/s 3953168046) MR peak grad (test code mmHg = 1302138999) E wave decelartion time msec (test code = 5637770848) MV Peak A Sam (test 0.87 m/s code = 4423773852) MV valve area p 1/2 3.17 cm2 method (test code = 2682000090) MV Peak E Sam (test 0.83 m/s code = 3740928374) MV stenosis pressure 69.31 ms 1/2 time (test code = 7947838014) LVOT stroke volume 0.75 cm3 (test code = 7196411798) AV LVOT peak gradient mmHg (test code = 5289496117) Ao Root,d,2D (test code 3.00 cm = 6280480513) LV SYS VOL (test code = 66.72 ml 7641205447) LV LICONA VOL (test code 126.64 ml = 4016352039) LV SV Teich 2D (test 59.92 ml code = 9164561486) LV Vol s Teich PSAX 66.72 ml (test code = 4700835282) RVOT pk grad (test code mmHg = 6865936675) AoV Vmn (test code = 7059957689) LV FS Teich 2D (test code = 9154355190) MV AE ratio (test code = 7220031106) LV FS Cube 2D (test code = 6237438332) LVOT Vmn (test code = 3732393700) Aov area Vmn (test code 2.80 cm2 = 1016273549) LVOT mean grad (test mmHg code = 0281102035) MAX Pred HR (test code = 5796661956) 85 of MPHR (test code = 5945453595) Ao d LA s ratio (test code = 9259400907) Calc MPHR (test code = bpm 5491941877) LV SV Cube 2D (test 76.35 ml code = 8436995824) LV vol d cube 2D (test 136.59 ml code = 6559997170) LV vol s cube 2D (test 60.24 ml code = 1995482331) MV Decel slope (test 3.45 m/s2 code = 3099563840) Pred Exer Dur R1 (test code = 2854234066) Pred METS R1 (test code = 5196914069) Velocity Ratio (V1/V2) 0.95 m/s (test code = 4689) EF (test code = 47.32 % 2422689588) E/A ratio (test code = 9184470902) LVOT VTI (CM) (test 24.00 cm code = 6078513455) MARIOLA (test code = MARIOLA) Normal left ventricular size and function with an EF~ 55% to 60%.Normal right ventricular size and function.Structurally normal cardiac valves.Mild mitral regurgitation. Left atrial enlargement. Normal pericardium with no effusion.Grade 1 diastolic dysfunction. [facility] Brain W Wo [id number] 18:34:06EXAM: MRI BRAIN W WO CONTRAST CLINICAL HISTORY: Stroke follow up, Vision loss monocular, Left eye vis ion loss TECHNIQUE: Multiplanar and multisequence MRI imaging [...] is no enhancing lesion in the brain. [id number] Interface, Radiology Results Incoming - 05/05/2020 1:37 PM CDT EXAM:MRI BRAIN W WO CONTRASTCLINICAL HISTORY: Stroke follow up, Vision loss monocular, Left eye vision lossTECHNIQUE: Multiplanar and multisequence MRI imaging of the brain was obtained with and without cont rast.COMPARISON: CT/CTA brain, 05/04/2020FINDINGS:No diffusion restriction to suggest acute infarct.Parenchymal volume is within normal limits.Minimal scattered white matter chronic small vessel ischemic changes.There is no abnormal parenchymal or leptomeningeal enhancement. No acute intracranial hemorr milton, mass, hydrocephalus, or extra-axial fluid collection identified.Although [...] There is no enhancing lesion in the brain.[id number] HospitalUrine [id number] 20:46:09 Test Item Value Reference Range Interpretation Comments Urine culture (test SEE COMMENT Bacteriu summer screen code = 2914749) negative. [facility] Wo [id number] 19:49:34EXAMINATION: CT ANGIOGRAM HEAD W WO CONTRAST [...] vessel occlusion or aneurysm. [id number] Interface, Radiology ResultsInc05/04/2020 2:52 PM CDT EXAMINATION: CT ANGIOGRAM HEAD W WO CONTRASTCLINICAL HISTORY: STROKECOMPARISON: None.FINDINGS:Axial images were obtained throughout the the brain after intravenous contrast infusion with MPR and 3-D MIP imagereconstructions. CT scans are performed using radiation dose reduction techniques. Technical factors are evaluated and adjusted to ensure appropriate moderation of exposure. Automated dose management technology is applied to adjust radiation exposure while achieving a highly diagnostic quality image.There is vertebrobasilar tortuosity without focal stenosis.The internal carotid arteries demonstrate mi nimal calcifications in the siphons without focal stenosis.There is no large vessel occlusion or aneurysm or AVM.There is patency of the dural venous sinuses and the cortical/brain.IMPRESSION:No evidence of large vessel occlusion or aneurysm.[id number] Hospital[facility] Neck W Wo [id number] 19:48:26 EXAMINATION: CT ANGIOGRAM NECK W WO CONTRAST CLINICAL HISTORY: STROKE COMPARISON: None. FINDINGS: Axial images were obtained after intravenous contrast injection throughout the neck and superior mediastinum with MPR and 3-D MIP image reformations CT scans are performed using radiation dose reduction te chniques. Technical factors are evaluated and adjusted to ensure appropriate moderation of exposure.Automated dose management technology is applied to adjust [...] definite intimal dissection. IMPRESSION: Small atheromatous calcifications inthe proximal internal carotid arteries without significant stenosis by NASCET criteria Vertebral artery patency. [id number] Interface, Radiology Results Incoming - 05/04/2020 2:51 PM CDT EXAMINATION: CT ANGIOGRAM NECK W WO CONTRASTCLINICALHISTORY: STROKECOMPARISON: None.FINDINGS:Axial images were obtained after intravenous contrast injection throughout the neck and superior mediastinum [...] criteriaVertebral artery patency.[id number]_[id number] HospitalCT Stroke Brain Wo [id number] 19:42:38EXAMINATION: CT STROKE BRAIN WO CONTRAST CLINICAL [...] patent. Calvarium is intact. The orbital contents aresymmetric and normal in appearance. The visualized paranasal sinuses are unremarkable. The mastoid air cells and middle ear cavities are clear. Scalp soft tissues are unremarkable. IMPRESSION: No acuteintracranial abnormality identified. These findings were discussed with ANA MARIA Means at 1441 hours on 05/04/2020 who verbalized understanding. [facility] [id number] Interface, Radiology Results 05/04/2020 2:45 PM CDT [...] identified. The cavanaugh- white matter differentiation is preserved.The basal ganglia, thalami, midbrain, cee and cervicomedullary [...] at 1441 hours on 05/04/2020 who verbalized understanding.[facility]-[id number] [facility]] CULTURE, URINE, [id number] 14:25:01 Test Item Value Reference Range Interpretation Comments ORGANISM (test Escherichia coliEnterococcus code = 699-9) Species FINAL REPORT 50,000 - 100,000 CFU/mL (test code = Escherichia coli 10,000 - FINAL REPORT) 50,000 CFU/mL EnterococcusSpecies 10,000 - 50,000 CFU/mL Skin Nina [facility][H] [id number] 14:25:01 Test Item Value Reference Range Interpretation Comments ORGANISM (test code = Enterococcus 699-9) Species Ampicillin (test code - S = Ampicillin) Levofloxacin (test - S code = Levofloxacin) Nitrofurantoin (test - S code = Nitrofurantoin) Tetracycline (test - S code = Tetracycline) Vancomycin (test code SEE NOTES S S= Latoya ceptible, = Vancomycin) R= Resistant, I= Intermediate, N/A= Not Applicable [facility][H] [id number] 14:25:01 Test Item Value Reference Range Interpretation [...] Tetracycline (test code = - S Tetracycline) [facility][O] Urine Dipstick (In Office)2017-08-27 15:29:00 Test Item Value Reference Range Interpretation Comments LEUKOCYTES (test code = LEUKOCYTES) 2+ A NITRITE; Normal (test code = 57138-1) neg N UROBILINOGEN; Normal (test code = 0.2 N 68390-7) PROTEIN; Normal (test code = 81756-0) neg N pH (test code = pH) 6.5 N URINE BLOOD; Abnormal (test code = trace A 91536-9) SPECIFIC GRAVITY; Normal (test code = 1.020 N 2965-2) KETONES; Normal (test code = 38975-8) neg N BILIRUBIN; Normal (test code = 17014-7) neg N GLUCOSE; Normal (test code = 1547-9) neg N [facility]] CULTURE, URINE, [id number] 15:37:01 Test Item Value Reference Range Interpretation Comments ORGANISM (test code = Escherichia coli 699-9) FINAL REPORT (test 50,000 - 100,000 CFU/mL code = FINAL REPORT) Escherichia coli . 50,000 - 100,000 CFU/mL [facility][H] [id number] 15:37:01 Test Item Value Reference Range Interpretation [...] Resi stant, I= Intermediate, N/A= Not Applicable [facility][O] Urine Dipstick (In Office)2017-08-21 12:24:00 Test Item Value Reference Range Interpretation Comments LEUKOCYTES (test code = LEUKOCYTES) 2+ A NITRITE; Normal (test code = 07079-6) NEG N UROBILINOGEN; Normal (test code = 0.2 N 10261-9) PROTEIN; Abnormal (test code = 15213-8) 30 MG A pH (test code = pH) 5.5 N URINE BLOOD; Abnormal (test code = 2+ A 50609-2) SPECIFIC GRAVITY; Normal (test code = 1.030 N 2965-2) KETONES; Normal (test code = 08849-7) NEG N BILIRUBIN; Normal (test code = 69102-6) NEG N GLUCOSE; Normal (test code = 1547-9) NEG N [facility][O] Urine Dipstick (In Office)2017-06-09 10:06:00 Test Item Value Reference Range Interpretation Comments LEUKOCYTES (test code = LEUKOCYTES) 2+ A NITRITE; Normal (test code = 92593-8) NEG N UROBILINOGEN; Normal (test code = 0.2 N 03071-0) PROTEIN; Normal (test code = 03881-9) NEG N pH (test code = pH) 7.0 N URINE BLOOD; Abnormal (test code = 2+ A 49425-9) SPECIFIC GRAVITY; Normal (test code = 1.010 N 2965-2) KETONES; Normal (test code = 45658-3) NEG N BILIRUBIN; Normal (test code = NEG N 90283-5) GLUCOSE; Abnormal (test code = 1547-9) 250 MG A [facility]] BV/ VAGINITIS PANEL DNA PROBE [id number] 09:20:01 Test Item Value Reference Range Interpretation Comments Trichomonas vaginalis DNA (test code Negative Negative = 88121-0) Gardnerella vaginalis DNA; Abnormal Positive Negative A (test code = 6410-5) Grace sp. DNA; Abnormal (test code Positive Negative A = 25627-8) [facility]] CULTURE, URINE, [id number] 09:20:01 Test Item Value Reference Range Interpretation Comments ORGANISM (test code = Escherichia coli 699-9) FINAL REPORT (test >100,000 CFU/mL code = FINAL REPORT) Escherichia coli 10,000 - 50,000 CFU/mL [facility][] [id number] 09:20:01 Test Item Value Reference Range Interpretation Comments ORGANISM (test code Escherichia coli = 699-9) Ciprofloxacin (test .75 S code = Ciprofloxacin) Levofloxacin (test 1.5 S code = Levofloxacin) Trimethoprim/Sulfame 32 R thoxazole (test code = Trimethoprim/Sulfame thoxazole) Ceftriaxone (test .094 S S= Suscept ible, code = Ceftriaxone) R= Resis tant, I= Intermediate, N/A= Not Applicable [facility]2017-02-20 20:20:00 Test Item Value Reference Range Interpretation Comments Eos BF (test code = Eos BF) 0 [facility]2017-02-20 20:20:00 Test Item Value Reference Range Interpretation Comments Macrophage BF (test code = Macrophage 0 BF) [facility]2017-02-20 20:20:00 Test Item Value Reference Range Interpretation Comments Color BF (test code = Yellow (04/01/16 2:20 Color BF) PM) [facility]2017-02-20 20:20:00 Test Item Value Reference Range Interpretation Comments CellCnt BF Type (test Other (04/01/16 2:20 code = CellCnt BF Type) PM) [facility]2017-02-20 20:20:00 Test Item Value Reference Range Interpretation Comments Clarity BF (test code = Slight Cloudy (04/01/16 Clarity BF) 2:20 PM) [facility]2017-02-20 20:20:00 Test Item Value Reference Range Interpretation Comments RBC BF (test code = RBC BF) 5375 [facility]2017-02-20 20:20:00 Test Item Value Reference Range Interpretation Comments WBC BF (test code = WBC BF) 980 [facility]2017-02-20 20:20:00 Test Item Value Reference Range Interpretation Comments Lymph BF (test code = Lymph BF) 44 [facility]2017-02-20 20:20:00 Test Item Value Reference Range Interpretation Comments Segs BF (test code = Segs BF) 56 [facility]2017-02-20 20:20:00 Test Item Value Reference Range Interpretation Comments Eos BF (test code = Eos BF) 0 [facility]2017-02-20 20:20:00 Test Item Value Reference Range Interpretation Comments Macrophage BF (test code = Macrophage 0 BF) [facility]2017-02-20 20:20:00 Test Item Value Reference Range Interpretation Comments Color BF (test code = Yellow (04/01/16 2:20 Color BF) PM) [facility]2017-02-20 20:20:00 Test Item Value Reference Range Interpretation Comments CellCnt BF Type (test Other (04/01/16 2:20 code = CellCnt BF Type) PM) [facility]2017-02-20 20:20:00 Test Item Value Reference Range Interpretation Comments Clarity BF (test code = Slight Cloudy (04/01/16 Clarity BF) 2:20 PM) [facility]2017-02-20 20:20:00 Test Item Value Reference Range Interpretation Comments RBC BF (test code = RBC BF) 5375 [facility]2017-02-20 20:20:00 Test Item Value Reference Range Interpretation Comments WBC BF (test code = WBC BF) 980 [facility]2017-02-20 20:20:00 Test Item Value Reference Range Interpretation Comments Lymph BF (test code = Lymph BF) 44 [facility]2017-02-20 20:20:00 Test Item Value Reference Range Interpretation Comments Segs BF (test code = Segs BF) [address] [id number] 19:10:00 Test Item Value Reference Range Interpretation Comments Monocytes (test code = Monocytes) 6.9 2.0-12.[address] [id number] 19:10:00 Test Item Value Reference Range Interpretation Comments Segs (test code = Segs) 65.5 45.0-[address] [facility]RajsivfFAZDCCECJK2439-33-64 19:10:00 Test Item Value Reference Range Interpretation Comments Basophils (test code = 0.6 See_Comment [Aut omated message] The Basophils) system which ge nerated this result tra nsmitted reference range : <=1.0. The reference r lv was not used to int erpret this result as normal/abnormal . [facility] HospitalRdbxzamNYEJAMYSMW4003-33-39 19:10:00 Test Item Value Reference Range Interpretation Comments Eosinophils (test code = 2.0 See_Comment [A utomated message] The Eosinophils) system which ge nerated this result tra nsmitted reference range : <=4.0. The reference r lv was not used to int erpret this result as normal/abnormal . [facility] HospitalArlnqnlEKXJZZCWGH6395-76-83 19:10:00 Test Item Value Reference Range Interpretation Comments WBC (test code = WBC) 6.1 3.7-10.[address] [facility]HfhiyeeSCIHVEYVJQ7051-69-55 19:10:00 Test Item Value Reference Range Interpretation Comments MPV (test code = MPV) 7.9 7.4-10.[address] [facility]KprjinuOYTMFVNCDU4713-90-64 19:10:00 Test Item Value Reference Range Interpretation Comments Platelet (test code = Platelet) 226 133-[address] [facility]NoyxtpqZCXQMOCEDG6402-98-51 19:10:00 Test Item Value Reference Range Interpretation Comments MCH (test code = MCH) 28.5 pg 27.0-31.[address] [facility]WunjfxcIQJDXJWUQP6241-05-97 19:10:00 Test Item Value Reference Range Interpretation Comments RDW (test code = RDW) 14.8 11.5-14.[address] [facility]MgppybxKGRNQQZYHK9566-05-41 19:10:00 Test Item Value Reference Range Interpretation Comments MCHC (test code = MCHC) 33.2 32.0-36.[address] [facility]HghdpniUGGXXVNJTL6288-20-48 19:10:00 Test Item Value Reference Range Interpretation Comments Hct (test code = Hct) 30.8 36.0-48.[address] [facility] HospitalDvqmknuXVPBFIASAG2330-94-77 19:10:00 Test Item Value Reference Range Interpretation Comments RBC (test code = RBC) 3.59 4.20-5.[address] [facility]YrjgfobUCGYBDQPVJ9908-86-82 19:10:00 Test Item Value Reference Range Interpretation Comments Hgb (test code = Hgb) 10.2 12.0-16.[address] [facility] HospitalFixcseoMCFFHHKATF2566-32-74 19:10:00 Test Item Value Reference Range Interpretation Comments MCV (test code = MCV) 85.9 80.0-98.[address] [facility] HospitalPwipgynDRRRVVFLTY5125-27-85 19:10:00 Test Item Value Reference Range Interpretation Comments Eosinophils # (test code 0.1 See_Comment [A utomated message] The = Eosinophils #) system whic h generated this result tra nsmitted reference range : <=0.5. The reference r lv was not used to int erpret this result as normal/abnormal . [facility] HospitalJxxmiepSOLLDKUVNO9227-65-57 19:10:00 Test Item Value Reference Range Interpretation Comments Monocytes # (test code 0.4 See_Comment [Aut omated message] The = Monocytes #) system which generated this result tra nsmitted reference range : <=0.8. The reference r lv was not used to int erpret this result as normal/abnormal . [facility] HospitalMsuvcluEMVVCGFLJF3519-98-33 19:10:00 Test Item Value Reference Range Interpretation Comments Segs-Bands # (test code = Segs-Bands #) 4.0 1.5-8.[address] [facility]RsbrnkeHNKEPFORIZ0942-66-36 19:10:00 Test Item Value Reference Range Interpretation Comments Lymphocytes # (test code = Lymphocytes 1.5 1.0-5.5 #) [facility] HospitalTxmgidmAZXZKOWVUM6163-06-07 19:10:00 Test Item Value Reference Range Interpretation Comments Basophils # (test code 0.0 See_Comment [Aut omated message] The = Basophils #) system which generated this result tra nsmitted reference range : <=0.2. The reference r lv was not used to int erpret this result as normal/abnormal . [facility] HospitalTtaixlyOTUALHSWSU5831-83-44 19:10:00 Test Item Value Reference Range Interpretation Comments Lymphocytes (test code = Lymphocytes) 25.0 20.0-40.[address] [facility] HospitalKxmxedxRTPFMFVSSK2435-09-78 19:10:00 Test Item Value Reference Range Interpretation Comments Monocytes (test code = Monocytes) 6.9 2.0-12.[address] [facility] HospitalZcbhjqyPFCZSCDUXV2700-01-96 19:10:00 Test Item Value Reference Range Interpretation Comments Segs (test code = Segs) 65.5 45.0-75.[address] [facility] HospitalPwbnemdTFYNZSLYHJ2680-92-99 19:10:00 Test Item Value Reference Range Interpretation Comments Basophils (test code = 0.6 See_Comment [Aut omated message] The Basophils) system which ge nerated this result tra nsmitted reference range : <=1.0. The reference r lv was not used to int erpret this result as normal/abnormal . [facility] HospitalLwxyghbOWSOIIDKZP0911-60-30 19:10:00 Test Item Value Reference Range Interpretation Comments Eosinophils (test code = 2.0 See_Comment [A utomated message] The Eosinophils) system which ge nerated this result tra nsmitted reference range : <=4.0. The reference r lv was not used to int erpret this result as normal/abnormal . [facility] HospitalFcyntxdCGKFLWKDCA0991-28-63 19:10:00 Test Item Value Reference Range Interpretation Comments WBC (test code = WBC) 6.1 3.7-10.[address] [facility] HospitalH[id number] 19:10:00 Test Item Value Reference Range Interpretation Comments MPV (test code = MPV) 7.9 7.4-10.[address] [facility] HospitalSybxkaeRVIOPUMWDB4737-99-13 19:10:00 Test Item Value Reference Range Interpretation Comments Platelet (test code = Platelet) 226 133-[address] [facility] HospitalRzqgogjWKPYLHZINL4241-35-03 19:10:00 Test Item Value Reference Range Interpretation Comments MCH (test code = MCH) 28.5 pg 27.0-31.[address] [facility] HospitalOugeookNKXNIOGFWE3215-81-52 19:10:00 Test Item Value Reference Range Interpretation Comments RDW (test code = RDW) 14.8 11.5-14.[address] [facility] HospitalYpqzxyiNBVVSTJSXK0305-08-15 19:10:00 Test Item Value Reference Range Interpretation Comments MCHC (test code = MCHC) 33.2 32.0-36.[address] [facility] HospitalIrsverfURXDPGXFRV9286-60-27 19:10:00 Test Item Value Reference Range Interpretation Comments Hct (test code = Hct) 30.8 36.0-48.[address] [facility] HospitalPmjfwoqKGIESISWWV2809-91-27 19:10:00 Test Item Value Reference Range Interpretation Comments RBC (test code = RBC) 3.59 4.20-5.[address] [facility] HospitalOectmhrSBNBODVCBU1129-12-08 19:10:00 Test Item Value Reference Range Interpretation Comments Hgb (test code = Hgb) 10.2 12.0-16.[address] [facility] HospitalMfkexryLEHFYANYNR7486-52-20 19:10:00 Test Item Value Reference Range Interpretation Comments MCV (test code = MCV) 85.9 80.0-98.[address] [facility] HospitalMfmddegGQDAHOBUJL6252-64-06 19:10:00 Test Item Value Reference Range Interpretation Comments Eosinophils # (test code 0.1 See_Comment [A utomated message] The = Eosinophils #) system whic h generated this result tra nsmitted reference range : <=0.5. The reference r lv was not used to int erpret this result as normal/abnormal . [facility] HospitalLwazxljAFFPQUKTBN4037-37-34 19:10:00 Test Item Value Reference Range Interpretation Comments Monocytes # (test code 0.4 See_Comment [Aut omated message] The = Monocytes #) system which generated this result tra nsmitted reference range : <=0.8. The reference r lv was not used to int erpret this result as normal/abnormal . [facility] HospitalBvvpkoxLUYKWJXJKO6519-15-77 19:10:00 Test Item Value Reference Range Interpretation Comments Segs-Bands # (test code = Segs-Bands #) 4.0 1.5-8.[address] [facility]LphawocQMEOFNQPDZ2874-33-55 19:10:00 Test Item Value Reference Range Interpretation Comments Lymphocytes # (test code = Lymphocytes 1.5 1.0-5.5 #) [facility] HospitalGpnoulfFDEASXCGXZ2967-05-17 19:10:00 Test Item Value Reference Range Interpretation Comments Basophils # (test code 0.0 See_Comment [Aut omated message] The = Basophils #) system which generated this result tra nsmitted reference range : <=0.2. The reference r lv was not used to int erpret this result as normal/abnormal . [facility] HospitalLvzesmfDXDPRJLPKW4584-81-25 19:10:00 Test Item Value Reference Range Interpretation Comments Lymphocytes (test code = Lymphocytes) 25.0 20.0-40.[address] [facility] HospitalIpialrdNAJVRVUFQJ9269-43-30 19:07:00 Test Item Value Reference Range Interpretation Comments Sed Rate (test code = 84 See_Comment [Auto mated message] The Sed Rate) system which ge nerated this result transmit neli reference range : <=20. The reference range was not used to interpr et this result as felipe l/abnormal. [facility] HospitalNaarsnpQJUHFIVAGO9013-38-55 19:07:00 Test Item Value Reference Range Interpretation Comments Sed Rate (test code = 84 See_Comment [Auto mated message] The Sed Rate) system which ge nerated this result transmit neli reference range : <=20. The reference range was not used to interpr et this result as felipe l/abnormal. [facility]2017-02-20 18:33:00 Test Item Value Reference Range Interpretation Comments Lactic Acid Lvl (test code = Lactic 1.3 0.5-2.2 Acid Lvl) [facility]2017-02-20 18:33:00 Test Item Value Reference Range Interpretation Comments eGFR (test code = eGFR) 91 [facility]2017-02-20 18:33:00 Test Item Value Reference Range Interpretation Comments B/C Ratio (test code = B/C Ratio) 19 6-25 [facility]2017-02-20 18:33:00 Test Item Value Reference Range Interpretation Comments A/G Ratio (test code = A/G Ratio) 0.6 0.7-1.6 [facility]2017-02-20 18:33:00 Test Item Value Reference Range Interpretation Comments Globulin (test code = Globulin) 4.7 2.7-4.2 [facility]2017-02-20 18:33:00 Test Item Value Reference Range Interpretation Comments AGAP (test code = AGAP) 12.0 10.0-20.0 [facility]2017-02-20 18:33:00 Test Item Value Reference Range Interpretation Comments Bili Total (test code = Bili Total) 0.2 0.2-1.3 [facility]2017-02-20 18:33:00 Test Item Value Reference Range Interpretation Comments Alk Phos (test code = Alk Phos) 116 39-136 [facility]2017-02-20 18:33:00 Test Item Value Reference Range Interpretation Comments CO2 (test code = CO2) 30 24-32 [facility]2017-02-20 18:33:00 Test Item Value Reference Range Interpretation Comments Chloride Lvl (test code = Chloride Lvl) 99 95-109 [facility]2017-02-20 18:33:00 Test Item Value Reference Range Interpretation Comments BUN (test code = BUN) 14 7-22 [facility]2017-02-20 18:33:00 Test Item Value Reference Range Interpretation Comments Glucose Lvl (test code = Glucose Lvl) 128 70-99 [facility]2017-02-20 18:33:00 Test Item Value Reference Range Interpretation Comments Creatinine Lvl (test code = Creatinine 0.74 0.50-1.40 Lvl) [facility]2017-02-20 18:33:00 Test Item Value Reference Range Interpretation Comments Potassium Lvl (test code = Potassium 5.0 3.5-5.1 Lvl) [facility]2017-02-20 18:33:00 Test Item Value Reference Range Interpretation Comments Sodium Lvl (test code = Sodium Lvl) 136 135-145 [facility]2017-02-20 18:33:00 Test Item Value Reference Range Interpretation Comments Total Protein (test code = Total 7.7 6.4-8.4 Protein) [facility]2017-02-20 18:33:00 Test Item Value Reference Range Interpretation Comments Calcium Lvl (test code = Calcium Lvl) 8.7 8.5-10.5 [facility]2017-02-20 18:33:00 Test Item Value Reference Range Interpretation Comments ALT (test code = ALT) 21 See_Comment [Auto mated message] The system which ge nerated this result transmit neli reference range : <=65. The reference range was not used to interpr et this result as felipe l/abnormal. [facility]2017-02-20 18:33:00 Test Item Value Reference Range Interpretation Comments Albumin Lvl (test code = Albumin Lvl) 3.0 3.5-5.0 [facility]2017-02-20 18:33:00 Test Item Value Reference Range Interpretation Comments AST (test code = AST) 27 See_Comment [Auto mated message] The system which ge nerated this result transmit neli reference range : <=37. The reference range was not used to interpr et this result as felipe l/abnormal. [facility]jwtuwlXCAPJMZQLP0027-91-66 18:33:00 Test Item Value Reference Range Interpretation Comments C-REACTIVE PROTEIN (test code = 44.4 C-REACTIVE PROTEIN) [facility]2017-02-20 18:33:00 Test Item Value Reference Range Interpretation Comments Lactic Acid Lvl (test code = Lactic 1.3 0.5-2.2 Acid Lvl) [facility]2017-02-20 18:33:00 Test Item Value Reference Range Interpretation Comments eGFR (test code = eGFR) 91 [facility]2017-02-20 18:33:00 Test Item Value Reference Range Interpretation Comments B/C Ratio (test code = B/C Ratio) 19 6-25 [facility]2017-02-20 18:33:00 Test Item Value Reference Range Interpretation Comments A/G Ratio (test code = A/G Ratio) 0.6 0.7-1.6 [facility]2017-02-20 18:33:00 Test Item Value Reference Range Interpretation Comments Globulin (test code = Globulin) 4.7 2.7-4.2 [facility]2017-02-20 18:33:00 Test Item Value Reference Range Interpretation Comments AGAP (test code = AGAP) 12.0 10.0-20.0 [facility]2017-02-20 18:33:00 Test Item Value Reference Range Interpretation Comments Bili Total (test code = Bili Total) 0.2 0.2-1.3 [facility]2017-02-20 18:33:00 Test Item Value Reference Range Interpretation Comments Alk Phos (test code = Alk Phos) 116 39-136 [facility]2017-02-20 18:33:00 Test Item Value Reference Range Interpretation Comments CO2 (test code = CO2) 30 24-32 [facility]2017-02-20 18:33:00 Test Item Value Reference Range Interpretation Comments Chloride Lvl (test code = Chloride Lvl) 99 95-109 [facility]2017-02-20 18:33:00 Test Item Value Reference Range Interpretation Comments BUN (test code = BUN) 14 7-22 [facility]2017-02-20 18:33:00 Test Item Value Reference Range Interpretation Comments Glucose Lvl (test code = Glucose Lvl) 128 70-99 [facility]2017-02-20 18:33:00 Test Item Value Reference Range Interpretation Comments Creatinine Lvl (test code = Creatinine 0.74 0.50-1.40 Lvl) [facility]2017-02-20 18:33:00 Test Item Value Reference Range Interpretation Comments Potassium Lvl (test code = Potassium 5.0 3.5-5.1 Lvl) [facility]2017-02-20 18:33:00 Test Item Value Reference Range Interpretation Comments Sodium Lvl (test code = Sodium Lvl) 136 135-145 [facility]2017-02-20 18:33:00 Test Item Value Reference Range Interpretation Comments Total Protein (test code = Total 7.7 6.4-8.4 Protein) [facility]2017-02-20 18:33:00 Test Item Value Reference Range Interpretation Comments Calcium Lvl (test code = Calcium Lvl) 8.7 8.5-10.5 [facility]2017-02-20 18:33:00 Test Item Value Reference Range Interpretation Comments ALT (test code = ALT) 21 See_Comment [Auto mated message] The system which ge nerated this result transmit neli reference range : <=65. The reference range was not used to interpr et this result as felipe l/abnormal. [facility]2017-02-20 18:33:00 Test Item Value Reference Range Interpretation Comments Albumin Lvl (test code = Albumin Lvl) 3.0 3.5-5.0 [facility]2017-02-20 18:33:00 Test Item Value Reference Range Interpretation Comments AST (test code = AST) 27 See_Comment [Auto mated message] The system which ge nerated this result transmit neli reference range : <=37. The reference range was not used to interpr et this result as felipe l/abnormal. [facility]landsHbykotkOIQEWFRMUK7909-83-70 18:33:00 Test Item Value Reference Range Interpretation Comments C-REACTIVE PROTEIN (test code = 44.4 C-REACTIVE PROTEIN) [facility]2016-06-23 14:38:00 Test Item Value Reference Range Interpretation Comments eGFR (test code = eGFR) 79 [facility]2016-06-23 14:38:00 Test Item Value Reference Range Interpretation Comments Sodium Lvl (test code = Sodium Lvl) 144 135-145 [facility]2016-06-23 14:38:00 Test Item Value Reference Range Interpretation Comments Chloride Lvl (test code = Chloride Lvl) 104 95-109 [facility]2016-06-23 14:38:00 Test Item Value Reference Range Interpretation Comments Potassium Lvl (test code = Potassium 4.6 3.5-5.1 Lvl) [facility]2016-06-23 14:38:00 Test Item Value Reference Range Interpretation Comments Calcium Lvl (test code = Calcium Lvl) 9.4 8.5-10.5 [facility]2016-06-23 14:38:00 Test Item Value Reference Range Interpretation Comments CO2 (test code = CO2) 31 24-32 [facility]2016-06-23 14:38:00 Test Item Value Reference Range Interpretation Comments Glucose Lvl (test code = Glucose Lvl) 126 70-99 [facility]2016-06-23 14:38:00 Test Item Value Reference Range Interpretation Comments Creatinine Lvl (test code = Creatinine 0.84 0.50-1.40 Lvl) [facility]2016-06-23 14:38:00 Test Item Value Reference Range Interpretation Comments BUN (test code = BUN) 17 7-22 [facility]2016-06-23 14:38:00 Test Item Value Reference Range Interpretation Comments AGAP (test code = AGAP) 13.6 10.0-20.[address] [facility]VeuubkoXXEUWIJNJS6295-71-63 14:38:00 Test Item Value Reference Range Interpretation Comments MCH (test code = MCH) 28.8 pg 27.0-31.[address] [facility]BwaeimiXQTZOSDXAO5759-85-68 14:38:00 Test Item Value Reference Range Interpretation Comments Hgb (test code = Hgb) 12.1 12.0-16.[address] [facility]BtztqeoQQXPAPZCAP5603-67-11 14:38:00 Test Item Value Reference Range Interpretation Comments RBC (test code = RBC) 4.20 4.20-5.40 [place] 701396-06-23 14:38:00 Test Item Value Reference Range Interpretation Comments MCV (test code = MCV) 89.2 80.0-98.[address] [facility]CxqujyhZLJRNJJKTE3861-15-56 14:38:00 Test Item Value Reference Range Interpretation Comments Hct (test code = Hct) 37.5 36.0-48.[address] [facility] HospitalKezdpbyIMEDOTIAKJ1212-69-64 14:38:00 Test Item Value Reference Range Interpretation Comments WBC (test code = WBC) 7.4 3.7-10.[address] [facility] HospitalSkfjslmZMAQCBFZUK7354-30-32 14:38:00 Test Item Value Reference Range Interpretation Comments MCHC (test code = MCHC) 32.3 32.0-36.[address] [facility]BeeppobMQUDEFGBHF0277-13-31 14:38:00 Test Item Value Reference Range Interpretation Comments RDW (test code = RDW) 14.3 11.5-14.[address] [facility]HltlfjbKTWCLJDHCF5438-79-28 14:38:00 Test Item Value Reference Range Interpretation Comments MPV (test code = MPV) 9.3 7.4-10.[address] [facility]QkzswbvNKRGNZQKMN8167-10-76 14:38:00 Test Item Value Reference Range Interpretation Comments Platelet (test code = Platelet) 193 133-[address] [facility] HospitalEpmkwsiUXJFBYGQRG5488-63-89 14:38:00 Test Item Value Reference Range Interpretation Comments Basophils # (test code 0.0 See_Comment [Aut omated message] The = Basophils #) system which generated this result tra nsmitted reference range : <=0.2. The reference r lv was not used to int erpret this result as normal/abnormal . [facility] HospitalKayqnndEKSXUPQHZS5286-93-02 14:38:00 Test Item Value Reference Range Interpretation Comments Segs (test code = Segs) 61.4 45.0-75.[address] [facility]OaixtvcJOLCRTHNCI2938-18-76 14:38:00 Test Item Value Reference Range Interpretation Comments Lymphocytes (test code = Lymphocytes) 30.9 20.0-40.[address] [facility] HospitalAmznexjILGOSAMECB2391-30-44 14:38:00 Test Item Value Reference Range Interpretation Comments Lymphocytes # (test code = Lymphocytes 2.3 1.0-5.5 #) [facility] HospitalXfbthxqMNEPOSLYFA0567-96-38 14:38:00 Test Item Value Reference Range Interpretation Comments Monocytes # (test code 0.4 See_Comment [Aut omated message] The = Monocytes #) system which generated this result tra nsmitted reference range : <=0.8. The reference r lv was not used to int erpret this result as normal/abnormal . [facility] HospitalBzomrpeBIFXPTJLCZ8261-99-47 14:38:00 Test Item Value Reference Range Interpretation Comments Segs-Bands # (test code = Segs-Bands #) 4.5 1.5-8.[address] [facility]XxflxwzOMPNJWPNAZ6742-41-14 14:38:00 Test Item Value Reference Range Interpretation Comments Basophils (test code = 0.5 See_Comment [Aut omated message] The Basophils) system which ge nerated this result tra nsmitted reference range : <=1.0. The reference r lv was not used to int erpret this result as normal/abnormal . [facility] HospitalYdivvadAKXVHTSRNJ1511-57-06 14:38:00 Test Item Value Reference Range Interpretation Comments Monocytes (test code = Monocytes) 5.8 2.0-12.[address] [facility]HpxyfdxPMPSPMYECM3024-56-45 14:38:00 Test Item Value Reference Range Interpretation Comments Eosinophils (test code = 1.4 See_Comment [A utomated message] The Eosinophils) system which ge nerated this result tra nsmitted reference range : <=4.0. The reference r lv was not used to int erpret this result as normal/abnormal . [facility] HospitalYewtrppIXGWLOZYGO8074-35-37 14:38:00 Test Item Value Reference Range Interpretation Comments Eosinophils # (test code 0.1 See_Comment [A utomated message] The = Eosinophils #) system whic h generated this result tra nsmitted reference range : <=0.5. The reference r lv was not used to int erpret this result as normal/abnormal . [facility]FgkqiisNPQSUNDBNI6340-82-86 14:38:00 Test Item Value Reference Range Interpretation Comments HIV 1/2 Ab (test code Negative *NA*(08/03/15 = HIV 1/2 Ab) 9:38 AM) [facility] HospitalBaptjzbSKELMKBLIV3159-91-99 14:38:00 Test Item Value Reference Range Interpretation Comments Hep C Ab (test code = Negative *NA*(08/03/15 Hep C Ab) 9:38 AM) [facility]2016-06-23 14:38:00 Test Item Value Reference Range Interpretation Comments eGFR (test code = eGFR) 79 [facility]2016-06-23 14:38:00 Test Item Value Reference Range Interpretation Comments Sodium Lvl (test code = Sodium Lvl) 144 135-145 [facility]2016-06-23 14:38:00 Test Item Value Reference Range Interpretation Comments Chloride Lvl (test code = Chloride Lvl) 104 95-109 [facility]2016-06-23 14:38:00 Test Item Value Reference Range Interpretation Comments Potassium Lvl (test code = Potassium 4.6 3.5-5.1 Lvl) [facility]2016-06-23 14:38:00 Test Item Value Reference Range Interpretation Comments Calcium Lvl (test code = Calcium Lvl) 9.4 8.5-10.5 [facility]2016-06-23 14:38:00 Test Item Value Reference Range Interpretation Comments CO2 (test code = CO2) 31 24-32 [facility]2016-06-23 14:38:00 Test Item Value Reference Range Interpretation Comments Glucose Lvl (test code = Glucose Lvl) 126 70-99 [facility]2016-06-23 14:38:00 Test Item Value Reference Range Interpretation Comments Creatinine Lvl (test code = Creatinine 0.84 0.50-1.40 Lvl) [facility]2016-06-23 14:38:00 Test Item Value Reference Range Interpretation Comments BUN (test code = BUN) 17 7-22 [facility]2016-06-23 14:38:00 Test Item Value Reference Range Interpretation Comments AGAP (test code = AGAP) 13.6 10.0-20.[address] [facility]ZrbnqnwRACRKFAFRB3298-91-82 14:38:00 Test Item Value Reference Range Interpretation Comments MCH (test code = MCH) 28.8 pg 27.0-31.[address] [facility] HospitalNjnrsjkEGIWYKKJIQ5626-83-00 14:38:00 Test Item Value Reference Range Interpretation Comments Hgb (test code = Hgb) 12.1 12.0-16.[address] [facility]AnrgcehWDZMNTLNBI5141-76-50 14:38:00 Test Item Value Reference Range Interpretation Comments RBC (test code = RBC) 4.20 4.20-5.[address] HospitalEldfyoxSFUDXEJCUS2724-02-65 14:38:00 Test Item Value Reference Range Interpretation Comments MCV (test code = MCV) 89.2 80.0-98.[address] HospitalSszqityNVEEXUXTHP9947-26-26 14:38:00 Test Item Value Reference Range Interpretation Comments Hct (test code = Hct) 37.5 36.0-48.[address] [id number] 14:38:00 Test Item Value Reference Range Interpretation Comments WBC (test code = WBC) 7.4 3.7-10.[address] [facility]EvlrjttUNMTCJNOZJ9830-07-92 14:38:00 Test Item Value Reference Range Interpretation Comments MCHC (test code = MCHC) 32.3 32.0-36.[address] [facility]ScrybksPXVKMGVHCI5394-99-35 14:38:00 Test Item Value Reference Range Interpretation Comments RDW (test code = RDW) 14.3 11.5-14.[address] [facility]R[id number] 14:38:00 Test Item Value Reference Range Interpretation Comments MPV (test code = MPV) 9.3 7.4-10.[address] [facility]BkdhylkUDPBUYJZKW5920-08-52 14:38:00 Test Item Value Reference Range Interpretation Comments Platelet (test code = Platelet) 193 133-[address] [facility]AsiiwczPHJORQQWRP6152-76-92 14:38:00 Test Item Value Reference Range Interpretation Comments Basophils # (test code 0.0 See_Comment [Aut omated message] The = Basophils #) system which generated this result tra nsmitted reference range : <=0.2. The reference r lv was not used to int erpret this result as normal/abnormal . [facility] HospitalGcxjebaOJKKBLHKAD0544-49-94 14:38:00 Test Item Value Reference Range Interpretation Comments Segs (test code = Segs) 61.4 45.0-75.[address] [facility]IjscjvoXYNAXTPPNP9486-08-14 14:38:00 Test Item Value Reference Range Interpretation Comments Lymphocytes (test code = Lymphocytes) 30.9 20.0-40.[address] [facility]MsidzijOZBVUNAGNF0338-04-29 14:38:00 Test Item Value Reference Range Interpretation Comments Lymphocytes # (test code = Lymphocytes 2.3 1.0-5.5 #) [facility] HospitalAurtdbtDRKIQIDCHV3325-05-36 14:38:00 Test Item Value Reference Range Interpretation Comments Monocytes # (test code 0.4 See_Comment [Aut omated message] The = Monocytes #) system which generated this result tra nsmitted reference range : <=0.8. The reference r lv was not used to int erpret this result as normal/abnormal . [facility] HospitalEcjibhoKCNQRTBGPD0221-96-90 14:38:00 Test Item Value Reference Range Interpretation Comments Segs-Bands # (test code = Segs-Bands #) 4.5 1.5-8.[address] [id number] 14:38:00 Test Item Value Reference Range Interpretation Comments Basophils (test code = 0.5 See_Comment [Aut omated message] The Basophils) system which ge nerated this result tra nsmitted reference range : <=1.0. The reference r lv was not used to int erpret this result as normal/abnormal . [facility] Hos[id number] 14:38:00 Test Item Value Reference Range Interpretation Comments Monocytes (test code = Monocytes) 5.8 2.0-12.[address] [id number] 14:38:00 Test Item Value Reference Range Interpretation Comments Eosinophils (test code = 1.4 See_Comment [A utomated message] The Eosinophils) system which ge nerated this result tra nsmitted reference range : <=4.0. The reference r lv was not used to int erpret this result as normal/abnormal . [facility] H[id number] 14:38:00 Test Item Value Reference Range Interpretation Comments Eosinophils # (test code 0.1 See_Comment [A utomated message] The = Eosinophils #) system whic h generated this result tra nsmitted reference range : <=0.5. The reference r lv was not used to int erpret this result as normal/abnormal . [facility]NmpgarmCMRMVHQTTJ1298-66-27 14:38:00 Test Item Value Reference Range Interpretation Comments HIV 1/2 Ab (test code Negative *NA*(08/03/15 = HIV 1/2 Ab) 9:38 AM) [facility] H[id number] 14:38:00 Test Item Value Reference Range Interpretation Comments Hep C Ab (test code = Negative *NA*(08/03/15 Hep C Ab) 9:38 AM) [facility]
--- NOTE | 2021-11-30 15:52 | RAD REPORT ---
EXAM DESCRIPTION: RAD - Foot Left 3 View - 11/30/2021 3:38 pm CLINICAL HISTORY: toe pain, blunt force trauma left fourth toe COMPARISON: Foot Left 3 View dated 05/21/2020 FINDINGS: No fourth toe fracture or dislocation. No fracture or acute bone finding elsewhere in the left foot. IP joint degenerative changes are present. First MTP joint degenerative change also seen. No periarticular soft tissue mass or calcification. Postsurgical changes are present from prior Achil les tendon repair. Plantar spur is present. No air or foreign body in the soft tissues. IMPRESSION: No left fourth toe fracture identifiable.
--- NOTE | 2021-11-30 16:05 | EDPHYS ---
Physician Documentation [facility] Name: Bob Armstrong Age: 61 yrs Sex: Female : 1960 Arrival Date: 11/30/2021 Time: 14:24 Bed DIS4 Private MD: FOUZIA Physician Braulio Tellez HPI: 11/30 16:51 This 61 yrs old Female presents to ER via Ambulatory with complaints of Toe Injury. kb 16:51 The patient presents with a contusion, pain, swelling, tenderness. The complaints kb affect the left fourth toe. Context: The problem was sustained outdoors, at a parking lot, resulted from the patient kicking, the patient can fully bear weight. Onset: The symptoms/episode began/occurred yesterday. Modifying factors: The symptoms are alleviated by nothing, the symptoms are aggravated by weight bearing, movement. Associated signs and symptoms: Pertinent positives: swelling, Pertinent negatives: calf tenderness, fever, nausea, numbness, rash, tingling, vomiting, warmth, weakness. Severity of symptoms: At their worst the symptoms were moderate, in the emergency department the symptoms are unchanged. The patient has not experienced similar symptoms in the past. The patient has not recently seen a physician. Pt reports she kicked something in the [facility] parking lot while walking yesterday. 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 - Social history:: Smoking status: Patient denies any tobacco usage or history of. ROS: 16:50 Constitutional: Negative for fever, chills, and weight loss. kb 16:50 MS/extremity: Positive for contusion, decreased range of motion, ecchymosis, pain, swelling, tenderness, of the left fourth toe. 16:50 All other systems are negative. Exam: 16:49 Constitutional: This is a well developed, well nourished patient who is awake, alert, kb and in no acute distress. Head/Face: Normocephalic, atraumatic. ENT: Moist Mucous membranes Cardiovascular: Regular rate and rhythm with a normal S1 and S2. No gallops, murmurs, or rubs. No pulse deficits. Respiratory: Respirations even and unlabored. No increased work of breathing. Talking in full sentences Abdomen/GI: Soft, non-tender. No distention Skin: Warm, dry with normal turgor. Normal color. Neuro: Awake and alert, GCS 15, oriented to person, place, time, and situation. Moves all extremities. Normal gait. Psych: Awake, alert, with orientation to person, place and time. Behavior, mood, and affect are within normal limits. 16:49 Musculoskeletal/extremity: Extremities: grossly normal except: noted in the left fourth toe: ecchymosis, pain, swelling, tenderness, ROM: intact in all extremities, Circulation is intact in all extremities. Sensation intact. Weight bearing: able to fully bear weight. Vital Signs: 14:34 BP 108 / 61; Pulse 87; Resp 18; Temp 97.9; Pulse Ox 100% ; Weight 105.23 kg; Height 5 kb3 ft. 11 in. (180.34 cm); Pain 3/10; 14:34 Body Mass Index 32.36 (105.23 kg, 180.34 cm) kb3 MDM: 15:05 Patient medically screened. [facility] 16:03 Data reviewed: vital signs, nurses notes. Data interpreted: Pulse oximetry: on room air kb is 100 %. Interpretation: normal. Counseling: I had a detailed discussion with the patient and/or guardian regarding: the historical points, exam findings, and any diagnostic results supporting the discharge/admit diagnosis, radiology results, the need for outpatient follow up, a family practitioner, to return to the emergency department if symptoms worsen or persist or if there are any questions or concerns that arise at home. 11/30 14:39 Order name: Foot Left 3 View XRAY; Complete Time: 15:54 kb3 Administered Medications: 16:16 Drug: Ibuprofen 800 mg Route: PO; iw 16:30 Follow up: Response: No adverse reaction iw Disposition Summary: 11/30/21 16:04 Discharge Ordered Location: Home kb Condition: Stable kb Diagnosis - Contusion of left lesser toe(s) without damage to nail, initial encounter kb Followup: kb - With: Emergency Department - When: As needed - Reason: Worsening of condition Followup: kb - With: Private Physician - When: 2 - 3 days - Reason: Recheck today's complaints, Continuance of care, Re-evaluation by your physician Discharge Instructions: - Discharge Summary Sheet kb - Foot Contusion, [id number] kb Forms: - Medication Reconciliation Form kb - Thank You Letter kb - Antibiotic Education kb - Prescription Opioid Use kb Addendum: 12/04/2021 04:08 Co-signature as Attending Physician, Braulio Tellez MD I agree with the assessment and c bolton plan of care. Signatures: Dispatcher [employer] Bev Malone, KAI-C [employer]-Braulio Esteban MD MD cha Williams, Irene, RN RN iw Tamara Todd RN RN kb3 Corrections: (The following items were deleted from the chart) 11/30 14:37 14:36 Allergies: steroids; kb3 kb3
--- NOTE | 2021-11-30 16:05 | ER ---
Nurse's Notes [facility] Name: Bob Armstrong Age: 61 yrs Sex: Female : 1960 Arrival Date: 11/30/2021 Time: 14:24 Bed DIS4 Private MD: Diagnosis: Contusion of left lesser toe(s) without damage to nail, initial encounter Presentation: 11/30 14:34 Chief complaint: Patient states: Pt reports she stubbed the 4th toe on her left foot kb3 yesterday. States pain and swelling today. Coronavirus screen: Vaccine status: Patient reports receiving the 2nd dose of the covid vaccine. Client denies travel out of the [place] in the last 14 days. Ebola Screen: Patient negative for fever greater than or equal to 101.5 degrees Fahrenheit, and additional compatible Ebola Virus Disease symptoms Patient denies exposure to infectious person. Patient denies travel to an Ebola-affected area in the 21 days before illness onset. No symptoms or risks identified at this time. Initial Sepsis Screen: Does the patient meet any 2 criteria? No. Patient's initial sepsis screen is negative. Does the patient have a suspected source of infection? No. Patient's initial sepsis screen is negative. Risk Assessment: Do you want to hurt yourself or someone else? Patient reports no desire to harm self or others. Onset of symptoms was November 29, 2021 at 15:00. 14:34 Method Of Arrival: Ambulatory kb3 14:34 Acuity: JERRY 4 kb3 Triage Assessment: 14:36 General: Appears in no apparent distress. Behavior is calm, cooperative. Pain: kb3 Complains of pain in left fourth toe Pain does not radiate. Pain currently is 8 out of 10 on a pain scale. Quality of pain is described as aching, sharp, Pain began 1 day ago. 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 - Social history:: Smoking status: Patient denies any tobacco usage or history of. Vital Signs: 14:34 BP 108 / 61; Pulse 87; Resp 18; Temp 97.9; Pulse Ox 100% ; Weight 105.23 kg; Height 5 kb3 ft. 11 in. (180.34 cm); Pain 3/10; 14:34 Body Mass Index 32.36 (105.23 kg, 180.34 cm) kb3 ED Course: 14:24 Patient arrived in ED. am2 14:36 Triage completed. kb3 14:36 Arm band placed on left wrist. kb3 14:37 Bev Flores FNP-C is PHCP. kb 14:38 Braulio Tellez MD is Attending Physician. kb 15:39 Foot Left 3 View XRAY In Process Unspecified. EDMS 16:16 Kat Orellana, RN is Primary Nurse. iw Administered Medications: 16:16 Drug: Ibuprofen 800 mg Route: PO; iw 16:30 Follow up: Response: No adverse reaction iw Outcome: 16:04 Discharge ordered by . kb 16:27 Patient left the ED. iw Signatures: Dispatcher [employer] EDMS Bev Flores FNP-C [employer]ORCYCLE [employer] REPAIRER-Ckb Kat Orellana, RN RN iw [address] [place] am2 Tamara Todd, RN RN kb3 Corrections: (The following items were deleted from the chart) 14:37 14:36 Allergies: steroids; kb3 kb3
[2021-11-30] MEDS ORDERED: IBUPROFEN 400 MG TAB ONE (16:14)
[2021-11-30 16:46] VITALS: BP 108/61; TEMP 97.9; O2SAT 100
== END 2021-11-30 16:27 | disposition home or self-care (01) ==
LOC: ER 13:43
DX: S90.122A Contusion of left lesser toe(s) without damage to nail, initial encounter (principal); W22.8XXA Striking against or struck by other objects, initial encounter; Y93.9 Activity, unspecified; Y92.9 Unspecified place or not applicable; Z88.1 Allergy status to other antibiotic agents
CPT/HCPCS: 99283

== ENCOUNTER 2022-04-01 18:33 | Emergency (ER) | payer OTHER ==
--- OUTSIDE RECORDS SUMMARY | 2022-04-01 18:54 | XMS REPORT | Continuity of Care Document ---
:1960 Author Organization [facility] t Address [address] [place] [address] Care Team Providers Name Role Phone Luciano Travis DO Primary Care Physician [phone] Luciano Travis Attending Clinician Unavailable ANDRESSA PUCKETT Attending Clinician Unavailable SHEFALI HOOPER Attending Clinician Unavailable ABRIL JOHNSON Attending Clinician Unavailable Cristofer ANN, Tuyet Robin Attending Clinician Aba Estrada MD Attending Clinician [phone] Brody Hinds MD Attending Clinician BRODY HINDS Attending Clinician Unavailable Doctor Unassigned, Mobile Attending Clinician Unavailable Jordy HOWELL, Ct Attending Clinician Unavailable RASHMI FLETCHER Attending Clinician Unavailable Johanne HALE Rashmi R Attending Clinician Radiology Attending Clinician Unavailable RADIOLOGY Attending Clinician Unavailable Madonna ANN, Merlyn Haro Attending Clinician Liam ANN, Nida Attending Clinician Adriana Carney PA-C Attending Clinician ADRIANA CARNEY Attending Clinician Unavailable Goldie Huber MD Attending Clinician GOLDIE HUBER Attending Clinician Unavailable Mak ANN, Kingsley Corrales Attending Clinician Mily ANN, Chloe Attending Clinician Rena Main Attending Clinician SHEFALI HOOPER NP Attending Clinician Unavailable UROLAVERN EVERETT Attending Clinician Unavailable Julio C Rutherford Attending Clinician ANDRESSA PUCKETT M.D. Attending Clinician Unavailable Andressa Puckett Attending Clinician TUYET CLEVELAND Admitting Clinician Unavailable CHLOE MINOR Admitting Clinician Unavailable Payers Payer Name Policy Type Policy Number Effective Date Expiration Date S gaby [facility] [id number] 2020 00:00:00 [employer] MEDICARE [id number] 2020 00:00:00 [id number] 2021 [facility] ADV[facility]AGE 00:00:00 [facility] [id number] 2013 2020 00:00:00 00:00:00 Problems Condition Condition [...] l RIGHT EAR" RIGHT EAR" 00:01: He naomi Active 00 11/11/2019 NISHA Bath Troponin I Troponin I Disease Active U [...] 12:48:00 l Active 00:00: [place] 04/01/2016 00 [place] STRESS STRESS Diagnosis Active 2015-08-10 Me moria URINARY URINARY 4-14 07:24:00 l INCONTINEN INCONTINEN 00:00: Mikel salgado CE-N39.3 / CE-N39.3 / 00 URET URET Active 05/25/2015 [place] R31.2 - R31.2 - Diagnosis Active 2015-06-06 Memoria OTHER OTHER 3-14 16:22:00 l MICROSCOPI MICROSCOPI 00:01: Mikel Pineda C 00 HEMATURIA HEMATURIA Active 04/24/2015 Chrystal English OPID [place] 727.00 - 727.00 - Diagnosis Active 2011-09-02 Memoria SYNOVITIS SYNOVITIS 08-29 08:58:00 l NOS NOS Active 00:01: Randy iqbal 08/30/2011 00 [facility] Anxiety Anxiety Problem Resolve 2019-11-26 M emoria (finding) (finding) d 23:02:23 l Resolved [place] Problem 11/26/2019 Tomasa Farrar H [place] Depressive Depressiv Problem Resolve 2019-11-26 Memoria disorder e disorder d 23:02:23 l (disorder) (disorder) He rmann Resolved Problem 11/26/2019 Tomasa Farrar [place] Diabetes Diabetes Problem Resolve 2019-11-26 Memoria mellitus mellitus d 23:02:23 l (disorder) (disorder) He rmann Resolved Problem 11/26/2019 Tomasa Farrar H [place] Endometrio Endometri Problem Resolve 2019-11-26 Memoria sis osis d 23:02:23 l (disorder) (disorder) He rmann Resolved Problem 11/26/2019 Tomasa Farrar [place] Fibromyosi Problem Resolve 2019-11-26 Memoria tis Fibromyosi d 23:02:23 l (disorder) tis Randy n (disorder) Resolved Problem 11/26/2019 Tomasa Farrar [place] Lumbar Lumbar Problem Resolve 2019-11-26 Mem oria spondylosi spondylosi d 23:02:23 l s s [place] (disorder) (disorder) Resolved Problem 11/26/2019 Tomasa Farrar [place] Motion Motion Problem Resolve 2019-11-26 Mem oria sickness sickness d 23:02:23 l (disorder) (disorder) He rmann Resolved Problem 11/26/2019 Tomasa Farrar [place] Neuropathy Neuropath Problem Resolve 2019-11-26 Memoria (disorder) y d 23:02:23 l (disorder) Randy n Resolved Problem 11/26/2019 Tomasa Farrar [place] Sleep Sleep Problem Resolve 2019-11-26 Alonzo summer apnea apnea d 23:02:23 l (finding) (finding) Daisha archana Resolved Problem 11/26/2019 Tomasa Farrar H [place] Restless Restless Problem Commo n legs leg Spirit syndrome syndrome - [facility] Fibromyalg Fibromyalg Problem C ommon ia ia Spirit - [facility] Type II Diabetes Problem Common diabetes type 2, Spirit mellitus controlled - CH I well [facility] Morbid Morbid Problem Common obesity obesity [facility] [id number] Body mass Problem Com mon index Spirit [BMI] - [facility] 32.0-32.9, [facility] [id number] Other Problem Common obesity Spirit due to - [facility] excess [facility] Diabetic Diabetic Problem Commo n neuropathy neuropathy Sp marco antonio - CHI [facility] Fatty Fatty Problem Common liver liver [facility] Insomnia Insomnia Problem Commo n Spirit [facility] [id number] Incontinen Problem Com mon ce of Spirit feces, - [facility] unspecifie [facility] fecal [facility] incontinen Medica l ce [facility] [id number] Psoriatic Problem Com mon arthritis [facility] Bipolar Bipolar Problem Common disorder disorder [facility] [id number] GERD Problem Common without Spirit esophagiti - [facility] s [facility] 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 [facility] sleep sleep - CHI disorder disorder, St of 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 [place] s work [facility] Ankylosing Ankylosing Problem C ommon spondyliti spondyliti Sp marco antonio s s of - CHI multiple St sites in [facility] spine [facility] [id number] Macular Problem Comm on hole of Spirit left eye [facility] Mixed Hyperlipid Problem Commo n hyperlipid emia, Spirit emia mixed [facility] Iron Iron Problem Common deficiency deficiency Sp marco [place]io anemia due anemia due - CHI to chronic to chronic St blood loss blood loss [facility] Obstructiv Obstructiv Problem C ommon e sleep e sleep Spirit apnea apnea - [facility] Overactive Overactive Problem C ommon bladder bladder 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 Vitamin D Vitamin D Problem Com mon deficiency deficiency Sp marco an[place] - [facility] Rheumatoid Rheumatoid Problem C ommon arthritis arthritis Spir it - [facility] [id number] Type 2 Problem Common diabetes Spirit mellitus - [facility] with [facility] kidney Center disease [id number] Type 2 Problem Common diabetes Spirit mellitus - [facility] with [facility] [id number] Memory Problem Common change [facility] [id number] History of Problem Co mmon suicidal [facility] ideation [facility] History of History of Problem Resolve UT [...] Clinician Date Discharge Discharge Problem 2016-04-04 2016-04-04 Memoria Diagnosis: Diagnosis: 2- 04:32:29 04:32:29 l Pain and Pain and 06:00: Randy n swelling swelling 00 of right of right knee knee 04/01/2016 04/04/2016 [place] Allergies, Adverse Reactions, Alerts Allergy Allergy Status [...] Uni vers ycin ty to See comments - ity of adverse 00:00: [place] reaction 00 Medical s Branch AZITHROM DRUG Active Unknown-Cmnt Un emanuel YCIN INGREDI -12 ity of 00:00: [place] 00 Medical Branch Lactase Propensi Active Diarrhea Unive rs ty to 07-21 ity of adverse 00:00: [place] reaction 00 Medical s Branch Pregabal Propensi Active Swelling 2017- Univ ers in ty to 07-21 ity of adverse 00:00: [place] reaction 00 Medical s Branch LACTASE DRUG Active Diarrhea 2016- Univers INGREDI 07-21 ity of 00:00: [place] 00 Medical Branch PREGABAL DRUG Active Swelling 2017 Univer s IN INGREDI 07-21 ity of 00:00: [place] 00 Medical Branch Lactase Allergy Active Diarrhea 2016- UT to 07-21 Health substanc 00:00: e 00 Pregabal Propensi Active Swelling 2015-02 Meth gwen in ty to 02-18 st adverse 00:00: Hospita reaction 00 l s to drug Methylpr Allergy Active 2015-02 Other [place] ednisolo to 0-29 reaction( Healt h ne substanc 00:00: s): e 00 Nausea/Vo miting, Unknown pregabal pregabal Active Unknown Commo n in in [facility] canaglif canaglif Active Unknown Commo n lozin lozin [facility] Methylpr Methylpr Active Unknown Commo n [facility] glimepir glimepir Active Unknown Commo n timothy timothy [facility] [id number] Drug Active Unknown Common allergy [facility] Lyrica Lyrica Active Memoria l [place] Latex Latex Active Memoria l [place] Adhesive Adhesive Active Memori a l [place] Family History Family Member Diagnosis Comments Start Date Stop Date Source Natural father Stroke [facility] Natural mother Lung cancer [facility] Mother [facility] history of [facility] Mother [facility] history of [facility] lung cancer Mother Family history of [facility] hypertension Father Family history of [facility] stroke Brother Family history of [facility] diabetes mellitus Social History Social Habit Start Date Stop Date Quantity Comments Source History of [facility] - Tobacco Use [facility] Alcohol intake 2022-01-25 2022-01-25 Ex-drinker [place] 00:00:00 00:00:00 (finding) [facility] Alcohol Comment 2022-01-24 2022-01-24 rarely [place] 00:00:00 00:00:00 Hospital Exposure to 2021-10-10 2021-10-20 Not sure [facility] SARS-CoV-2 00:00:00 15:53:00 (event) Tobacco use and 2020-06-22 2020-06-22 Smokeless tobacco [facility] exposure 00:00:00 00:00:00 non-user Hospital Social History 2015-08-03 2015-08-03 [facility] 14:18:54 14:18:54 Sex Ass[birth year] At [birth year] [place] 00:00:00 00:00:00 Hospital Smoking Status Start Date Stop Date Source Never smoked tobacco [facility] Medications Ordered Filled Start Stop Current Ordering Indication Dosage Frequency Signature Comments Components Source Medication Medication Date Date Medication? Clinician (SIG) Name Name Promethazin Promethazin 2022- No 10{ml_a TID Promethazi e HCl 6.25 e HCl 6.25 02-18 s_neede ne HCl MG/5ML MG/5ML 00:00: 00:00 d} 6.25 00 :00 MG/5ML predniSONE predniSONE 2021-02- No QD predniSONE 20 MG 20 MG 02-13 20 MG 00:00: 00:00 00 :00 predniSONE predniSONE 2021-02- No QD predniSONE 20 MG 20 MG 30 - 20 MG 00:00: 00:00 00 :00 celecoxib 2021-02 Yes 200mg Q.5D Take 200 Met hodi (CeleBREX) 2-[address] 200 MG 03:06: mouth 2 Hospita capsule 07 (two) l times a day. hydroxychlo 2021-02 Yes Q.5D Take by Met hodi roquine 2-[address] (PLAQUENIL) 03:06: (two) Hospi ta 200 mg 07 times a l tablet day. PILOCARPINE 2021-02 Yes 7.5mg Q.[id number] Take 7.5 Methodi HCL ORAL 2-[id number] 03:06: 3D mouth 3 Hospita 07 (three) l times a day. LISINOPRIL- 2021-02 Yes 2{tbl} QD Take 2 Me thodi HCTZ 2-[address] 20-12.5 MG 03:06: mouth Hospit a COMBO DOSE 07 daily. l exenatide 2021-02 Yes 2mg Q1W Inject 2 Meth gwen microsphere 2-[address] s 2 mg/0.65 03:06: the skin Ho spita mL pen 07 every 7 l injector days. aspirin 2021-02 Yes 81mg QD Take 81 mg Meth gwen (ECOTRIN) 2-[address] 81 MG 03:06: daily. Hospita enteric 07 l coated tablet ALPRAZolam 2021-02 Yes .5mg Q.5D Take 0.5 Met hodi (NIRAVAM) 2-[address] 0.5 MG 03:06: mouth 2 Hospita disintegrat 07 (two) l ing tablet times a day as needed for anxiety. cycloSPORIN 2021-02 Yes 1[drp] Q.5D Administer Methodi E 2-[address] (RESTASIS) 03:06: both eyes Ho spita 0.05 % 07 2 (two) l ophthalmic times a emulsion day. doxepin 2021-02 Yes 10mg QD Take 10 mg Meth gwen (SINEquan) 2-[address] 10 MG 03:06: nightly. Hospita capsule 07 l leflunomide 2021-02 Yes 20mg QD Take 20 mg Methodi (ARAVA) 20 2-[address] MG tablet 03:06: nightly. Hosp ruiz 07 l atorvastati 2021-02 Yes 10mg QD Take 10 mg Methodi n (LIPITOR) 2-[address] 10 mg 03:06: nightly. Hospita tablet 07 l lithium 300 2021-02 Yes 300mg Q.[id number] Take 300 Methodi MG capsule 2-[id number] 03:06: 3D mouth 3 Hospita 07 (three) l times a day with meals. metFORMIN 2021-02 Yes 1000mg Q.5D Take 1,000 Methodi XR 2-[address] (GLUCOPHAGE 03:06: mouth 2 Hos ileana -XR) 500 mg 07 (two) l 24 hr times a tablet day with meals. sertraline 2021-02 Yes 50mg QD Take 50 mg M ethodi (ZOLOFT) 50 2-[address] MG tablet 03:06: daily. Hospit a 07 l golimumab 2021-02 Yes Q30D Infuse Method i (SIMPONI 2-[address] ARIA IV) 03:06: venous Hospita 07 catheter l every 30 (thirty) days. insulin 2021-02 Yes 22U Q.[id number] Inject 22 Methodi lispro 2-[id number] (HUMALOG 03:06: 3D under the Hosp ruiz KWIKPEN 07 skin 3 l INSULIN (three) SUBQ) times a day with meals. insulin 2021-02 Yes 11U QD Inject 11 Metho di lispro 2-[address] (HUMALOG 03:06: under the Hosp ruiz KWIKPEN 07 skin l INSULIN nightly. SUBQ) insulin 2021-02 Yes 160U QD Inject 160 Meth gwen GLARGINE 2-[address] (Toujeo 03:06: under the Hospi ta SoloStar 07 skin every l U-300 evening. Insulin) 300 unit/mL (1.5 mL) insulin pen baclofen 2021-02 Yes 1 tablet Metho di (LIORESAL) 2-[address] 10 MG 03:06: Orally Hospita tablet 07 Once a day l insulin 2021-02 Yes 20U Inject 20 Metho di degludec 2-[address] (Tresiba 03:06: under the Hosp ruiz FlexTouch 07 skin. l U-100) 100 unit/mL (3 mL) subcutaneou s pen celecoxib 2021-02 Yes 200mg Q.5D Take 200 Met hodi (CeleBREX) 2-[address] 200 MG 03:06: mouth 2 Hospita capsule 07 (two) l times a day. hydroxychlo 2021-02 Yes Q.5D Take by Met hodi roquine 2-[address] (PLAQUENIL) 03:06: (two) Hospi ta 200 mg 07 times a l tablet day. PILOCARPINE 2021-02 Yes 7.5mg Q.[id number] Take 7.5 Methodi HCL ORAL 2-[id number] 03:06: 3D mouth 3 Hospita 07 (three) l times a day. LISINOPRIL- 2021-02 Yes 2{tbl} QD Take 2 Me thodi HCTZ 2-[address] 20-12.5 MG 03:06: mouth Hospit a COMBO DOSE 07 daily. l exenatide 2021-02 Yes 2mg Q1W Inject 2 Meth gwen microsphere 2-[address] s 2 mg/0.65 03:06: the skin Ho spita mL pen 07 every 7 l injector days. aspirin 2021-02 Yes 81mg QD Take 81 mg Meth gwen (ECOTRIN) 2-[address] 81 MG 03:06: daily. Hospita enteric 07 l coated tablet ALPRAZolam 2021-02 Yes .5mg Q.5D Take 0.5 Met hodi (NIRAVAM) 2-[address] 0.5 MG 03:06: mouth 2 Hospita disintegrat 07 (two) l ing tablet times a day as needed for anxiety. cycloSPORIN 2021-02 Yes 1[drp] Q.5D Administer Methodi E 2-[address] (RESTASIS) 03:06: both eyes Ho spita 0.05 % 07 2 (two) l ophthalmic times a emulsion day. doxepin 2021-02 Yes 10mg QD Take 10 mg Meth gwen (SINEquan) 2-[address] 10 MG 03:06: nightly. Hospita capsule 07 l leflunomide 2021-02 Yes 20mg QD Take 20 mg Methodi (ARAVA) 20 2-[address] MG tablet 03:06: nightly. Hosp ruiz 07 l atorvastati 2021-02 Yes 10mg QD Take 10 mg Methodi n (LIPITOR) 2-[address] 10 mg 03:06: nightly. Hospita tablet 07 l lithium 300 2021-02 Yes 300mg Q.[id number] Take 300 Methodi MG capsule 2-[id number] 03:06: 3D mouth 3 Hospita 07 (three) l times a day with meals. metFORMIN 2021-02 Yes 1000mg Q.5D Take 1,000 Methodi XR 2-[address] (GLUCOPHAGE 03:06: mouth 2 Hos ileana -XR) 500 mg 07 (two) l 24 hr times a tablet day with meals. sertraline 2021-02 Yes 50mg QD Take 50 mg M ethodi (ZOLOFT) 50 2-[address] MG tablet 03:06: daily. Hospit a 07 l golimumab 2021-02 Yes Q30D Infuse Method i (SIMPONI 2-[address] ARIA IV) 03:06: venous Hospita 07 catheter l every 30 (thirty) days. insulin 2021-02 Yes 22U Q.[id number] Inject 22 Methodi lispro 2-[id number] (HUMALOG 03:06: 3D under the Hosp ruiz KWIKPEN 07 skin 3 l INSULIN (three) SUBQ) times a day with meals. insulin 2021-02 Yes 11U QD Inject 11 Metho di lispro 2-[address] (HUMALOG 03:06: under the Hosp ruiz KWIKPEN 07 skin l INSULIN nightly. SUBQ) insulin 2021-02 Yes 160U QD Inject 160 Meth gwen GLARGINE 2-[address] (Toujeo 03:06: under the Hospi ta SoloStar 07 skin every l U-300 evening. Insulin) 300 unit/mL (1.5 mL) insulin pen baclofen 2021-02 Yes 1 tablet Metho di (LIORESAL) 2-[address] 10 MG 03:06: Orally Hospita tablet 07 Once a day l insulin 2021-02 Yes 20U Inject 20 Metho di degludec 2-[address] (Tresiba 03:06: under the Hosp ruiz FlexTouch 07 skin. l U-100) 100 unit/mL (3 mL) subcutaneou s pen botulinum 2021- No 100U UT toxin Type 10-24 Health A (Cosm) 18:30: 20:58 (Botox) 00 :00 injection 100 Units botulinum 2021- No 100U 100 Units, U T toxin Type 10-24 Intramuscu He alth A (Cosm) 18:30: 20:58 lar, Once, (Botox) 00 :00 On Fri injection 10/24/21 at 100 Units 1330, For 1 dose
In dications: urgency incontinen ce lisinopril- Yes 1{tbl} QD Take 1 UT hydroCHLORO 9-14 tablet by [facility] thiazide 14:07: mouth 1 20-12.5 MG 53 (one) time tablet each day. leflunomide 2022-0 Yes 20mg QD Take 20 mg UT (Arava) 20 9-14 by mouth 1 Hea lth MG tablet 14:07: (one) time 53 each day. lisinopril- 2022-0 Yes 1{tbl} QD Take 1 UT hydroCHLORO 9-14 tablet by Hea lth thiazide 14:07: mouth 1 20-12.5 MG 53 (one) time tablet each day. leflunomide 2022-0 Yes 20mg QD Take 20 mg UT (Arava) 20 9-14 by mouth 1 Hea lth MG tablet 14:07: (one) time 53 each day. gabapentin 2022-0 Yes 1{capsu 1 capsule. UT (Neurontin) 9-14 le} Health 300 MG 14:04: capsule 54 gabapentin 2022-0 Yes 1{capsu 1 capsule. UT (Neurontin) 914 le} Health 300 MG 14:04: capsule 54 sulfamethox 2022-0 2021- No [id number] 1{tbl} Q.5D Take 1 UT azole-trime 10-24 tablet by He alth thoprim 00:00: 04:59 mouth in (Bactrim 00 :00 the DS) 800-160 morning MG tablet and 1 tablet in the evening. Do all this for 7 days. sulfamethox 2022-0 2021- No [id number] 1{tbl} Q.5D Take 1 UT azole-trime 10-24 tablet by He alth thoprim 00:00: 04:59 mouth in (Bactrim 00 :00 the DS) 800-160 morning MG tablet and 1 tablet in the evening. Do all this for 7 days. gabapentin 2022-0 Yes 1200mg Take 1,200 Univers 600 mg 8-31 mg by ity of tablet 13:32: mouth in [address] and 1,200 mg in the evening. gabapentin 2022-0 Yes 1200mg Take 1,200 Univers 600 mg 8-31 mg by ity of tablet 13:32: mouth in [address] and 1,200 mg in the evening. gabapentin 2022-0 Yes 1200mg Take 1,200 Univers 600 mg 8-31 mg by ity of tablet 13:32: mouth in [address] Branch and 1,200 mg in the evening. prednisoLON 2021- No 1[drp] 1 Drop U nivers E acetate 1 10-10 every 2 ity of % 13:30: 00:00 (two) [place] ophthalmic 41 :00 hours as Medic al suspension needed for Bra nch drops Itching. prednisoLON 2021- No 1[drp] 1 Drop U nivers E acetate 1 10-10 every 2 ity of % 13:30: 00:00 (two) [place] ophthalmic 41 :00 hours as Medic al suspension needed for Bra nch drops Itching. pilocarpine 2021- No 7.5mg Take 7.5 Univers 7.5 mg 10-10 mg by ity of tablet 13:30: 00:00 mouth 3 [place] 38 :00 (three) Medical times Branch daily. pilocarpine 2021- No 7.5mg Take 7.5 Univers 7.5 mg 10-10 mg by ity of tablet 13:30: 00:00 mouth 3 [place] 38 :00 (three) Medical times Branch daily. Milnacipran 2021- No 50mg Take 50 mg Univers (SAVELLA) 10-10 by mouth ity o f 50 mg 13:30: 00:00 at [place] tablet 29 :00 bedtime. Medical Branch Milnacipran 2021- No 50mg Take 50 mg Univers (SAVELLA) 10-10 by mouth ity o f 50 mg 13:30: 00:00 at [place] tablet 29 :00 bedtime. Medical Branch suvorexant 2021- No 20mg Take 20 mg Univers (BELSOMRA) 10-10 by mouth ity of 20 mg Tab 13:30: 00:00 at [place] 19 :00 bedtime. Medical Branch suvorexant 0 2021- No 20mg Take 20 mg Univers (BELSOMRA) 10-10 by mouth ity of 20 mg Tab 13:30: 00:00 at [place] 19 :00 bedtime. Medical Branch simvastatin 2021-0 2021- No 40mg Take 40 mg Univers 40 mg 10-10 by mouth ity of tablet 13:30: 00:00 at [place] 04 :00 bedtime. Medical Branch simvastatin 2021- No 40mg Take 40 mg Univers 40 mg 10-10 by mouth ity of tablet 13:30: 00:00 at [place] 04 :00 bedtime. Medical Branch insulin 2021- No 160U inject 160 Uni vers glargine 10-10 Units ity of U-300 conc 13:29: 00:00 under the [place] ([place]JEO 49 :00 skin. Medical SOLOSTPR Branch U-300 INSULIN) 300 unit/mL (1.5 mL) InPn insulin 2021- No 160U inject 160 Uni vers glargine 10-10 Units ity of U-300 conc 13:29: 00:00 under the [place] (TOUJEO 49 :00 skin. Medical [facility] Branch U-300 INSULIN) 300 unit/mL (1.5 mL) InPn traZODONE 2021- No 100mg Take Univer s 100 mg 10-10 100-200 mg ity of tablet 13:: 00:00 by mouth [place] 30 :00 at bedtime Medical as needed Branch for Insomnia. traZODONE 2021- No 100mg Take Univer s 100 mg 10-10 100-200 mg ity of tablet 13:: 00:00 by mouth [place] 30 :00 at bedtime Medical as needed Branch for Insomnia. SERTraline 2021- No 50mg Take 50 mg Univers 50 mg 10-10 by mouth. ity of tablet 13:: 00:00 [place] 05 :00 Medical Branch SERTraline 2021- No 50mg Take 50 mg Univers 50 mg 10-10 by mouth. ity of tablet 13:: 00:00 [place] 05 :00 Medical Branch lithium 2021- No 300mg Take 300 Univ ers carbonate 10-10 08-31 mg by ity of 300 mg 13:28: 00:00 mouth. [place] capsule 53 :00 Medical Branch lithium 2021-2021- No 300mg Take 300 Univ ers carbonate 10-10 08-31 mg by ity of 300 mg 13:28: 00:00 mouth. [place] capsule 53 :00 Medical Branch hydroxychlo 2021- No 200mg Take 200 Univers roquine 200 10-10 08-31 mg by ity of mg tablet 13:28: 00:00 mouth 2 [place] 44 :00 (two) Medical times Branch daily. hydroxychlo 2021-0 2021- No 200mg Take 200 Univers roquine 200 10-10 08-31 mg by ity of mg tablet 13:28: 00:00 mouth 2 [place] 44 :[place] (two) Medical times Branch daily. foLIC acid 2021-2021- No 2mg Take 2 mg U nivers 1 mg tablet 10-10 by mouth ity of 13:28: 00:00 daily. [place] 25 :00 [facility] Branch foLIC acid 2021-2021- No 2mg Take 2 mg U nivers 1 mg tablet 10-10 by mouth ity of 13:28: 00:00 daily. [place] 25 :00 [facility] Branch exenatide 2021- No 2mg inject 2 Uni vers microsphere 10-10 mg under ity of s 2 mg/0.65 13:27: 00:00 the skin. [facility] 56 :00 Medical injection Branch exenatide 2021- No 2mg inject 2 Uni vers microsphere 10-10- mg under ity of s 2 mg/0.65 13:27: 00:00 the skin. [facility] 56 :00 Medical injection Branch doxepin 10 2021-2021- No 10mg Take 10 mg Univers mg capsule 10-10 by mouth. ity of 13:27: 00:00 [place] 38 :00 Medical Branch doxepin 10 2021-2021- No 10mg Take 10 mg Univers mg capsule 10-10 by mouth. ity of 13:27: 00:00 [place] 38 :00 Medical Branch cycloSPORIN 2021-2021- No 1[drp] Place 1 Univers E 10-10 Drop in ity of (RESTASIS) 13:27: 00:00 both eyes [place] 0.05 % 35 :00 every 12 Medical drops (twelve) Branch hours. cycloSPORIN 2021-2021- No 1[drp] Place 1 Univers E 10-10 Drop in ity of (RESTASIS) 13:27: 00:00 both eyes [place] 0.05 % 35 :00 every 12 Medical drops (twelve) Branch hours. cyclobenzap 2021- No 10mg Take 10 mg Univers rine 10 mg 10-10 by mouth 3 it y of tablet 13:27: 00:00 (three) [place] 32 :00 times Medical daily. Branch cyclobenzap 2021- No 10mg Take 10 mg Univers rine 10 mg 10-10 by mouth 3 it y of tablet 13:27: 00:00 (three) [place] 32 :00 times Medical daily. Branch celecoxib 2021- No 200mg Take 200 Un emanuel (CELEBREX) 10-10 08-31 mg by ity of 200 mg 13:27: 00:00 mouth 2 [place] capsule 25 :00 (two) Medical times Branch daily. celecoxib 2021-2021- No 200mg Take 200 Un emanuel (CELEBREX) 10-10 08-31 mg by ity of 200 mg 13:27: 00:00 mouth 2 [place] capsule 25 :00 (two) Medical times Branch daily. aspirin 81 2021- No 81mg Take 81 mg [facility] mg chewable 10-10 by mouth ity of tablet 13:27: 00:00 daily. [place] 22 :00 Medical Branch aspirin 81 0 2021- No 81mg Take 81 mg [facility] mg chewable 10-10- by mouth ity of tablet 13:27: 00:00 daily. [place] 22 :00 Medical Branch Armodafinil 2021- No [...] 20mg Take 20 mg [facility] e (ABILIFY) 10-10- by mouth ity of 20 mg 13:27: 00:00 at [place] tablet 16 :00 bedtime. Medical Branch ARIPiprazol 2021- No 20mg Take 20 mg Univers e (ABILIFY) 10-10 by mouth ity of 20 mg 13:27: 00:00 at [place] tablet 16 :00 bedtime. Medical Branch semaglutide Yes [id number] Take U nivers (OZEMPIC) 10-10 0.25mg ity of 0.25 mg or 00:00: weekly for [place] 0.5 mg(2 two weeks, Medic al mg/1.5 mL) then Branch PnIj increase to 0.5mg weekly if tolerate insulin Yes [id number] 30U inject Uni vers degludec 10-10 30-40 ity of (TRESIBA 00:00: Units [place] FLEXTOUCH 00 under the Medic al U-200) 200 skin every Bra nch unit/mL (3 morning. mL) InPn E11.65 flash Yes [id number] 1{kit} 1 Kit Univ ers glucose 10-10 every 14 ity of sensor 00:00: (fourteen) [place] (FREESTYLE 00 days. Medical TERRI 2 E11.65 Branch SENSOR) Kit Insulin Yes [id number] Use as Uni vers [place], 10-10 directed ity of Disposable, 00:00: once daily [place] (BD LOUIE 00 E11.65 Medical 2ND GEN PEN Branch NEEDLE) 32 gauge x 5/32" Ndle semaglutide Yes [id number] Take U nivers (OZEMPIC) 10-10 0.25mg ity of 0.25 mg or 00:00: weekly for [place] 0.5 mg(2 two weeks, Medic al mg/1.5 mL) then Branch PnIj increase to 0.5mg weekly if tolerate insulin Yes [id number] 30U inject Uni vers degludec 10-10 30-40 ity of (TRESIBA 00:00: Units [place] FLEXTOUCH 00 under the Medic al U-200) 200 skin every Bra nch unit/mL (3 morning. mL) InPn E11.65 flash Yes [id number] 1{kit} 1 Kit Univ ers glucose 8-31 every 14 ity of sensor 00:00: (fourteen) [place] (FREESTYLE 00 days. Medical TERRI 2 E11.65 Branch SENSOR) Kit Insulin 0 Yes [id number] Use as Uni vers [place], 10-10 directed ity of Disposable, 00:00: once daily [place] (BD LOUIE E11.65 Medical 2ND GEN PEN Branch NEEDLE) 32 gauge x 5/32" Ndle semaglutide Yes [id number] Take U nivers (OZEMPIC) 10-10 0.25mg ity of 0.25 mg or 00:00: weekly for [place] 0.5 mg(2 00 two weeks, Medic al mg/1.5 mL) then Branch PnIj increase to 0.5mg weekly if tolerate insulin Yes [id number] 30U inject Uni vers degludec 10-10 30-40 ity of (TRESIBA 00:00: Units [place] FLEXTOUCH 00 under the Medic al U-200) 200 skin every Bra nch unit/mL (3 morning. mL) InPn E11.65 flash 0 Yes [id number] 1{kit} 1 Kit Univ ers glucose - every 14 ity of sensor 00:00: (fourteen) [place] (FREESTYLE 00 days. Medical TERRI 2 E11.65 Branch SENSOR) Kit Insulin Yes [id number] Use as Uni vers [place], 10-10 directed ity of Disposable, 00:00: once daily [place] (BD LOUIE E1165 Medical 2ND GEN PEN Branch NEEDLE) 32 gauge x 5/32" Ndle insulin Yes as [place] degludec 10-10 directed Health (Tresiba 00:00: Subcutaneo FlexTouch) 00 us 200 UNIT/ML injection semaglutide 0 Yes as [place] (Ozempic, 10-10 directed Health 0.25 or 0.5 00:00: Subcutaneo MG/DOSE,) 2 00 us MG/1.5ML solution pen-injecto r insulin Yes as [place] degludec 10-10 directed Health (Tresiba 00:00: Subcutaneo FlexTouch) 00 us 200 UNIT/ML injection semaglutide 2021-0 Yes as [place] (Ozempic, 10-10 directed Health 0.25 or 0.5 00:00: Subcutaneo MG/DOSE,) 2 00 us MG/1.5ML solution pen-injecto r flash 2021- No [id number] 1{kit} 1 Kit Uni vers glucose 10-10 every 14 ity of sensor 00:00: 00:00 (fourteen[place] (FREESTYLE 00 :00 days. Medical TERRI 2 E11.65 Branch SENSOR) Kit flash 2021- No [id number] 1{kit} 1 Kit Uni vers glucose 10-10 every 14 ity of sensor 00:00: 00:00 (fourteen[place] (FREESTYLE 00 :00 days. Medical TERRI 2 E11.65 Branch SENSOR) Kit traMADol traMADol 2021- No 1{table QD traMADol HCl 50 MG HCl 50 MG 04-03 t_as_ne HCl 50 MG 00:00: 00:00 eded} 00 :00 sulfamethox 2021-0 Yes [id number] 1{tbl} Take 1 [facility] azole-trime 2-14 tablet by ity of thoprim 00:00: mouth [place] 800-160 mg 00 every 12 Medic al per tablet (twelve) Branc h hours. doxycycline 2021-0 Yes [id number] 100mg Take 1 [facility] hyclate 100 2-14 capsule by it y of mg capsule 00:00: mouth [place] (two) Medical times Branch daily. sulfamethox 2021-0 Yes [id number] 1{tbl} Take 1 [facility] azole-trime 2-14 tablet by ity of thoprim 00:00: mouth [place] 800-160 mg 00 every 12 Medic al per tablet (twelve) Branc h hours. doxycycline 2021-0 Yes [id number] 100mg Take 1 [facility] hyclate 100 2-14 capsule by it y of mg capsule 00:00: mouth [place] 00 (two) Medical times Branch daily. sulfamethox 2-0 Yes [id number] 1{tbl} Take 1 [facility] azole-trime 2-14 tablet by ity of thoprim 00:00: mouth [place] 800-160 mg 00 every 12 Medic al per tablet (twelve) Branc h hours. doxycycline 2021-0 Yes [id number] 100mg Take 1 [facility] hyclate 100 2-14 capsule by it y of mg capsule 00:00: mouth [place] (two) Medical times Branch daily. sulfamethox 2021- No [id number] 1{tbl} Take 1 [facility] azole-trime 2-14 -31 tablet by it y of thoprim 00:00: 00:00 mouth [place] 800-160 mg 00 :00 every 12 Medic al per tablet (twelve) Branc h hours. doxycycline 2021- No [id number] 100mg Take 1 [facility] hyclate 100 2-14 -31 capsule by i ty of mg capsule 00:00: 00:00 mouth 2 [place] 00 :00 (two) Medical times Branch daily. sulfamethox 2021- No [id number] 1{tbl} Take 1 [facility] azole-trime 2-14 - tablet by it y of thoprim 00:00: 00:00 mouth [place] 800-160 mg 00 :00 every 12 Medic al per tablet (twelve) Branc h hours. doxycycline 2021- No [id number] 100mg Take 1 [facility] hyclate 100 2-14 -31 capsule by i ty of mg capsule 00:00: 00:00 mouth 2 [place] 00 :00 (two) Medical times Branch daily. traMADoL 50 2021- No [id number] 50mg Take 1 Uni vers mg tablet -26 03- tablet by ity of 00:00: 05:59 mouth [...] 1 00 (one) time each day. ketorolac 2020-02- No 60mg 60 mg, Unive rs (TORADOL) 0-24 10-24 Intramuscu ity of injection 21:15: 21:15 lar, ONCE, [place] 60 mg 00 :00 1 dose, On [facility] 12/03/20 at 1615, NOEL
[facility] approving Restricted medication : JOSLYN PEACOCKARI [place] traMADoL 2020-02 Yes [id number] 50mg Take 1 [...] 7-10). Indication s: acute pain traMADoL 2020-02 No [id number] 50mg Take 1 Univer s (ULTRAM) 50 0-24 08-31 tablet by it y of mg tablet 00:00: 00:00 mouth [place] 00 :00 every 6 Medical (six) Branch hours as needed for Pain (scale 7-10). Indication s: acute pain traMADoL 2020-02 No [id number] 50mg Take 1 Univer s [...] QD Armodafini 250 MG 250 MG 10-26 t_in_ l 250 MG 00:00: 00:00 e_morni 00 :00 ng} armodafinil 2020- No 250mg QD Take 250 [facility] (NUVIGIL) 5-17 05-[address] 250 mg 16:54: 00:00 [facility] tablet [facility] :00 daily. l armodafiniL 2020- No [id number] 250mg QD Take 1 [facility] (NUVIGIL) 5-17 11-[address] 250 mg 00:00: 05:59 (250 mg [facility] tablet 00 :00 total) by l mouth daily for 180 days. armodafiniL 2020- No [id number] 250mg QD Take 1 [facility] (NUVIGIL) 5-17 [...] tablet 00 each day. amitriptyli 2020- No [id number] 50mg QD Take 2 [facility] ne (ELAVIL) 5-14 11-[address] 25 MG 00:00: 05:59 (50 mg [facility] tablet 00 :00 total) by l mouth nightly for 180 days. amitriptyli 2020- No [id number] 50mg QD Take 2 [facility] (ELAVIL) 5-14 11-[address] 25 MG 00:00: 05:59 (50 mg [facility] tablet 00 :00 total) by l mouth nightly for 180 days. carBAMazepi 2021- No [id number] 200mg Q.5D Take 1 [facility] ne 5-13 05-[address] (TEGretoL) 00:00: 04:59 (200 mg Hos ileana 200 mg 00 :00 total) by l tablet mouth 2 (two) times a day. carBAMazepi 2021- No [id number] 200mg Q.5D Take 1 [facility] ok [facility] (TEGretoL) 00:00: 04:59 (200 mg Hos ileana 200 mg 00 :00 total) by l tablet mouth 2 (two) times a day. carBAMazepi 2021- No [id number] 200mg Q.5D Take 1 [facility] ne [facility] (TEGretoL) 00:00: 04:59 (200 mg Hos ileana 200 mg 00 :00 total) by l tablet mouth 2 (two) times a day. carBAMazepi 2021- No [id number] 200mg Q.5D Take 1 [facility] ok [facility] (TEGretoL) 00:00: 04:59 (200 mg [...] [place] tablet 56 bedtime. Medical Branch Milnacipran 2020- Yes 50mg Take 50 mg [facility] (SAVELLA) 5-12 by mouth ity of 50 mg 20:10: at [place] tablet 56 bedtime. Medical Branch Milnacipran Yes 50mg Take 50 mg [facility] (SAVELLA) 5-12 by mouth ity of 50 mg 20:10: at [place] tablet 56 bedtime. Medical Branch Milnacipran Yes 50mg Take 50 mg [facility] (SAVELLA) 5-12 by mouth ity of 50 mg 20:10: at [place] tablet 56 bedtime. Medical Branch Milnacipran Yes 50mg Take 50 mg [facility] (SAVELLA) 5-12 by mouth ity of 50 mg 20:10: at [place] tablet 56 bedtime. Medical Branch Milnacipran Yes 50mg Take 50 mg [facility] (SAVELLA) 5-12 by mouth ity of 50 mg 20:10: at [place] tablet 56 bedtime. Medical Branch Armodafinil Yes 250mg Take 250 U nivers (NUVIGIL) 5-12 mg by ity of 250 mg Tab 20:09: mouth [place] [address] daily. Medical Branch cycloSPORIN Yes 1[drp] Place 1 U nivers E 5-12 Drop in ity of (RESTASIS) 20:09: both eyes [place] 0.05 % 27 every 12 Medical drops (twelve) Branch hours. aspirin 81 Yes 81mg Take 81 mg U nivers mg chewable 5-12 by mouth ity of tablet 20:09: daily. [address] atorvastati Yes 10mg Take 10 mg Univers n 10 mg 5-12 by mouth. ity of tablet 20:09: [address] doxepin 10 Yes 10mg Take 10 mg U nivers mg capsule 5-12 by mouth. ity of 20:09: [address] insulin Yes 160U inject 160 Univ ers glargine 5-12 Units ity of U-300 conc 20:09: under the [place] (TOUJEO 27 skin. Medical SOLOSTAR Branch U-300 INSULIN) 300 unit/mL (1.5 mL) InPn lithium Yes 300mg Take 300 Unive rs carbonate 5-12 mg by ity of 300 mg 20:09: mouth. [place] capsule Medical Branch SERTraline Yes 50mg Take 50 mg U nivers 50 mg 5-12 by mouth. ity of tablet 20:09: [address] Branch celecoxib Yes 200mg Take 200 Uni vers (CELEBREX) 5-12 mg by ity of 200 mg 20:09: mouth 2 [place] capsule 27 (two) Medical times Branch daily. hydroxychlo Yes 200mg Take 200 U nivers roquine 200 5-12 mg by ity of mg tablet 20:09: mouth 2 [place] [address] (two) Medical times Branch daily. cyclobenzap Yes 10mg Take 10 mg [facility] rine 10 mg 5-12 by mouth 3 ity of tablet 20:09: (three) [place] [address] times Medical daily. Branch pilocarpine Yes 7.5mg Take 7.5 U nivers 7.5 mg 5-12 mg by ity of tablet 20:09: mouth 3 [place] [address] (three) Medical times Branch daily. Armodafinil Yes 250mg Take 250 U nivers (NUVIGIL) 5-12 mg by ity of 250 mg Tab 20:09: mouth [place] [address] daily. Medical Branch cycloSPORIN Yes 1[drp] Place 1 U nivers E 5-12 Drop in ity of (RESTASIS) 20:09: both eyes [place] 0.05 % 27 every 12 Medical drops (twelve) Branch hours. aspirin 81 Yes 81mg Take 81 mg U nivers mg chewable 5-12 by mouth ity of tablet 20:09: daily. [address] atorvastati Yes 10mg Take 10 mg [facility] n 10 mg 5-12 by mouth. ity of tablet 20:09: [address] Branch doxepin 10 Yes 10mg Take 10 mg U nivers mg capsule 5-12 by mouth. ity of 20:09: [address] insulin Yes 160U inject 160 Univ ers glargine 5-12 Units ity of U-300 conc 20:09: under the [place] (TOUJEO 27 skin. Medical SOLOSTAR Branch U-300 INSULIN) 300 unit/mL (1.5 mL) InPn lithium Yes 300mg Take 300 Unive rs carbonate 5-12 mg by ity of 300 mg 20:09: mouth. [place] [address] Medical Branch SERTraline Yes 50mg Take 50 mg U nivers 50 mg 5-12 by mouth. ity of tablet 20:09: [address] celecoxib Yes 200mg Take 200 Uni vers (CELEBREX) 5-12 mg by ity of 200 mg 20:09: mouth 2 [place] [address] (two) Medical times [place] daily. hydroxychlo Yes 200mg Take 200 U nivers roquine 200 5-12 mg by ity of mg tablet 20:09: mouth 2 [place] [address] (two) Medical times [place] daily. cyclobenzap Yes 10mg Take 10 mg Univers rine 10 mg 5-12 by mouth 3 ity of tablet 20:09: (three) [address] daily. Branch pilocarpine Yes 7.5mg Take 7.5 U nivers 7.5 mg 5-12 mg by ity of tablet 20:09: mouth 3 [place] [address] (three) Medical times [place] daily. Armodafinil Yes 250mg Take 250 U nivers (NUVIGIL) 5-12 mg by ity of 250 mg Tab 20:09: mouth [place] [address] daily. Medical Branch cycloSPORIN Yes 1[drp] Place 1 U nivers E 5-12 Drop in ity of (RESTASIS) 20:09: both eyes [place] 0.05 % 27 every 12 Medical drops (twelve) Branch hours. aspirin 81 Yes 81mg Take 81 mg U nivers mg chewable 5-12 by mouth ity of tablet 20:09: daily. [address] atorvastati Yes 10mg Take 10 mg Univers n 10 mg 5-12 by mouth. ity of tablet 20:09: [address] Branch doxepin 10 Yes 10mg Take 10 mg U nivers mg capsule 5-12 by mouth. ity of 20:09: [address] insulin Yes 160U inject 160 Univ ers glargine 5-12 Units ity of U-300 conc 20:09: under the [place] (TOUJEO 27 skin. Medical SOLOSTAR Branch U-300 INSULIN) 300 unit/mL (1.5 mL) InPn lithium Yes 300mg Take 300 Unive rs carbonate 5-12 mg by ity of 300 mg 20:09: mouth. [place] capsule Medical Branch SERTraline Yes 50mg Take 50 mg U nivers 50 mg 5-12 by mouth. ity of tablet 20:09: [address] Branch celecoxib Yes 200mg Take 200 Uni vers (CELEBREX) 5-12 mg by ity of 200 mg 20:09: mouth 2 [place] [address] (two) Medical times Branch daily. hydroxychlo Yes 200mg Take 200 U nivers roquine 200 5-12 mg by ity of mg tablet 20:09: mouth 2 [place] [address] (two) Medical times [place] daily. cyclobenzap Yes 10mg Take 10 mg Univers rine 10 mg 5-12 by mouth 3 ity of tablet 20:09: (three) [address] daily. Branch pilocarpine Yes 7.5mg Take 7.5 U nivers 7.5 mg 5-12 mg by ity of tablet 20:09: mouth 3 [place] [address] (three) Medical times [place] daily. Armodafinil Yes 250mg Take 250 U nivers (NUVIGIL) 5-12 mg by ity of 250 mg Tab 20:09: mouth [place] [address] daily. Medical Branch cycloSPORIN Yes 1[drp] Place 1 U nivers E 5-12 Drop in ity of (RESTASIS) 20:09: both eyes [place] 0.05 % 27 every 12 Medical drops (twelve) Branch hours. aspirin 81 Yes 81mg Take 81 mg U nivers mg chewable 5-12 by mouth ity of tablet 20:09: daily. [address] Branch atorvastati Yes 10mg Take 10 mg Univers n 10 mg 5-12 by mouth. ity of tablet 20:09: [address] Branch doxepin 10 Yes 10mg Take 10 mg U nivers mg capsule 5-12 by mouth. ity of 20:09: [address] insulin Yes 160U inject 160 Univ ers glargine 5-12 Units ity of U-300 conc 20:09: under the [place] (TOUJEO 27 skin. Medical SOLOSTAR Branch U-300 INSULIN) 300 unit/mL (1.5 mL) InPn lithium Yes 300mg Take 300 Unive rs carbonate 5-12 mg by ity of 300 mg 20:09: mouth. [address] Branch SERTraline Yes 50mg Take 50 mg U nivers 50 mg 5-12 by mouth. ity of tablet 20:09: [address] Branch celecoxib Yes 200mg Take 200 Uni vers (CELEBREX) 5-12 mg by ity of 200 mg 20:09: mouth 2 [place] [address] (two) Medical times Branch daily. hydroxychlo Yes 200mg Take 200 U nivers roquine 200 5-12 mg by ity of mg tablet 20:09: mouth 2 [place] [address] (two) Medical times [place] daily. cyclobenzap Yes 10mg Take 10 mg Univers rine 10 mg 5-12 by mouth 3 ity of tablet 20:09: (three) [place] [address] times [facility] daily. Branch pilocarpine Yes 7.5mg Take 7.5 U nivers 7.5 mg 5-12 mg by ity of tablet 20:09: mouth 3 [place] [address] (three) Medical times [place] daily. Armodafinil Yes 250mg Take 250 U nivers (NUVIGIL) 5-12 mg by ity of 250 mg Tab 20:09: mouth [place] [address] daily. Medical Branch cycloSPORIN Yes 1[drp] Place 1 U nivers E 5-12 Drop in ity of (RESTASIS) 20:09: both eyes [place] 0.05 % 27 every 12 Medical drops (twelve) Branch hours. aspirin 81 Yes 81mg Take 81 mg U nivers mg chewable 5-12 by mouth ity of tablet 20:09: daily. [address] atorvastati Yes 10mg Take 10 mg Univers n 10 mg 5-12 by mouth. ity of tablet 20:09: [address] Branch doxepin 10 Yes 10mg Take 10 mg U nivers mg capsule 5-12 by mouth. ity of 20:09: [address] insulin Yes 160U inject 160 Univ ers glargine 5-12 Units ity of U-300 conc 20:09: under the [place] (TOUJEO 27 skin. Medical SOLOSTAR Branch U-300 INSULIN) 300 unit/mL (1.5 mL) InPn lithium Yes 300mg Take 300 Unive rs carbonate 5-12 mg by ity of 300 mg 20:09: mouth. [place] [address] Medical Branch SERTraline Yes 50mg Take 50 mg U nivers 50 mg 5-12 by mouth. ity of tablet 20:09: [place] [address] Medical Branch celecoxib Yes 200mg Take 200 Uni vers (CELEBREX) 5-12 mg by ity of 200 mg 20:09: mouth 2 [place] [address] (two) Medical times Branch daily. hydroxychlo Yes 200mg Take 200 U nivers roquine 200 5-12 mg by ity of mg tablet 20:09: mouth 2 [place] [address] (two) Medical times Branch daily. cyclobenzap Yes 10mg Take 10 mg Univers rine 10 mg 5-12 by mouth 3 ity of tablet 20:09: (three) [place] [address] times [facility] daily. Branch pilocarpine Yes 7.5mg Take 7.5 U nivers 7.5 mg 5-12 mg by ity of tablet 20:09: mouth 3 [place] [address] (three) Medical times Branch daily. Armodafinil Yes 250mg Take 250 U nivers (NUVIGIL) 5-12 mg by ity of 250 mg Tab 20:09: mouth [place] [address] daily. Medical Branch cycloSPORIN Yes 1[drp] Place 1 U nivers E 5-12 Drop in ity of (RESTASIS) 20:09: both eyes [place] 0.05 % 27 every 12 Medical drops (twelve) Branch hours. aspirin 81 Yes 81mg Take 81 mg U nivers mg chewable 5-12 by mouth ity of tablet 20:09: daily. [address] Branch atorvastati Yes 10mg Take 10 mg Univers n 10 mg 5-12 by mouth. ity of tablet 20:09: [address] Branch doxepin 10 Yes 10mg Take 10 mg U nivers mg capsule 5-12 by mouth. ity of 20:09: [address] insulin Yes 160U inject 160 Univ ers glargine 5-12 Units ity of U-300 conc 20:09: under the [place] (TOUJEO 27 skin. Medical SOLOSTAR Branch U-300 INSULIN) 300 unit/mL (1.5 mL) InPn lithium Yes 300mg Take 300 Unive rs carbonate 5-12 mg by ity of 300 mg 20:09: mouth. [place] [address] Medical Branch SERTraline Yes 50mg Take 50 mg U nivers 50 mg 5-12 by mouth. ity of tablet 20:09: [place] [address] Medical Branch celecoxib Yes 200mg Take 200 Uni vers (CELEBREX) 5-12 mg by ity of 200 mg 20:09: mouth 2 [place] [address] (two) Medical times Branch daily. hydroxychlo Yes 200mg Take 200 U nivers roquine 200 5-12 mg by ity of mg tablet 20:09: mouth 2 [place] [address] (two) Medical times Branch daily. cyclobenzap Yes 10mg Take 10 mg Univers rine 10 mg 5-12 by mouth 3 ity of tablet 20:09: (three) [place] [address] times Medical daily. Branch pilocarpine Yes 7.5mg Take 7.5 U nivers 7.5 mg 5-12 mg by ity of tablet 20:09: mouth 3 [place] [address] (three) Medical times Branch daily. exenatide Yes 2mg inject 2 Univ ers microsphere 5-12 mg under ity of s 2 mg/0.65 20:07: the skin. [place] mL 40 Medical injection Branch exenatide Yes 2mg inject 2 Univ ers microsphere 5-12 mg under ity of s 2 mg/0.65 20:07: the skin. [place] mL 40 Medical injection Branch exenatide 0 Yes 2mg inject 2 Univ ers microsphere 5-12 mg under ity of s 2 mg/0.65 20:07: the skin. [place] mL 40 Medical injection Branch exenatide 0 Yes 2mg inject 2 Univ ers microsphere 5-12 mg under ity of s 2 mg/0.65 20:07: the skin. [place] mL 40 Medical injection Branch exenatide 2021-0 Yes 2mg inject 2 Univ ers microsphere [...] [place] tablet 56 bedtime. Medical Branch Milnacipran 0 Yes 50mg Take 50 mg Univers (SAVELLA) 5-12 by mouth ity of 50 mg 15:10: at [place] tablet 56 bedtime. Medical Branch Milnacipran 0 Yes 50mg Take 50 mg Univers (SAVELLA) [...] mouth ity of 50 mg 15:10: at [place] tablet 56 bedtime. Medical Branch celecoxib Yes 200mg Take 200 Uni vers (CELEBREX) 5-12 mg by ity of 200 mg 15:09: mouth 2 [place] capsule 27 (two) Medical times Branch daily. hydroxychlo Yes 200mg Take 200 U nivers roquine 200 5-12 mg by ity of mg tablet 15:09: mouth 2 [place] [address] (two) Medical times Branch daily. cyclobenzap Yes 10mg Take 10 mg Univers rine 10 mg 5-12 by mouth 3 ity of tablet 15:09: (three) [place] [address] times Medical daily. Branch pilocarpine Yes 7.5mg Take 7.5 U nivers 7.5 mg 5-12 mg by ity of tablet 15:09: mouth 3 [place] [address] (three) Medical times Branch daily. Armodafinil Yes 250mg Take 250 U nivers (NUVIGIL) 5-12 mg by ity of 250 mg Tab 15:09: mouth [place] [address] daily. Medical Branch cycloSPORIN Yes 1[drp] Place 1 U nivers E 5-12 Drop in ity of (RESTASIS) 15:09: both eyes [place] 0.05 % 27 every 12 Medical drops (twelve) Branch hours. aspirin 81 0 Yes 81mg Take 81 mg U nivers mg chewable 5-12 by mouth ity of tablet 15:09: daily. [address] Branch atorvastati Yes 10mg Take 10 mg Univers n 10 mg 5-12 by mouth. ity of tablet 15:09: [address] Branch doxepin 10 Yes 10mg Take 10 mg U nivers mg capsule 5-12 by mouth. ity of 15:09: [address] insulin Yes 160U inject 160 Univ ers glargine 5-12 Units ity of U-300 conc 15:09: under the [place] (TOUJEO 27 skin. Medical SOLOSTAR Branch U-300 INSULIN) 300 unit/mL (1.5 mL) InPn lithium Yes 300mg Take 300 Unive rs carbonate 5-12 mg by ity of 300 mg 15:09: mouth. [place] [address] Medical Branch SERTraline Yes 50mg Take 50 mg U nivers 50 mg 5-12 by mouth. ity of tablet 15:09: [address] celecoxib Yes 200mg Take 200 Uni vers (CELEBREX) 5-12 mg by ity of 200 mg 15:09: mouth 2 [place] [address] (two) Medical times [place] daily. hydroxychlo Yes 200mg Take 200 U nivers roquine 200 5-12 mg by ity of mg tablet 15:09: mouth 2 [place] [address] (two) Medical times [place] daily. cyclobenzap Yes 10mg Take 10 mg Univers rine 10 mg 5-12 by mouth 3 ity of tablet 15:09: (three) [address] daily. Branch pilocarpine Yes 7.5mg Take 7.5 U nivers 7.5 mg 5-12 mg by ity of tablet 15:09: mouth 3 [place] [address] (three) Medical times [place] daily. Armodafinil Yes 250mg Take 250 U nivers (NUVIGIL) 5-12 mg by ity of 250 mg Tab 15:09: mouth [place] [address] daily. Medical Branch cycloSPORIN Yes 1[drp] Place 1 U nivers E 5-12 Drop in ity of (RESTASIS) 15:09: both eyes [place] 0.05 % 27 every 12 Medical drops (twelve) Branch hours. aspirin 81 Yes 81mg Take 81 mg U nivers mg chewable 5-12 by mouth ity of tablet 15:09: daily. [address] atorvastati Yes 10mg Take 10 mg Univers n 10 mg 5-12 by mouth. ity of tablet 15:09: [address] Branch doxepin 10 Yes 10mg Take 10 mg U nivers mg capsule 5-12 by mouth. ity of 15:09: [address] insulin Yes 160U inject 160 Univ ers glargine 5-12 Units ity of U-300 conc 15:09: under the [place] (TOUJEO 27 skin. Medical SOLOSTAR Branch U-300 INSULIN) 300 unit/mL (1.5 mL) InPn lithium Yes 300mg Take 300 Unive rs carbonate 5-12 mg by ity of 300 mg 15:09: mouth. [place] capsule Medical Branch SERTraline Yes 50mg Take 50 mg U nivers 50 mg 5-12 by mouth. ity of tablet 15:09: [address] celecoxib Yes 200mg Take 200 Uni vers (CELEBREX) 5-12 mg by ity of 200 mg 15:09: mouth 2 [place] [address] (two) Medical times Branch daily. hydroxychlo Yes 200mg Take 200 U nivers roquine 200 5-12 mg by ity of mg tablet 15:09: mouth 2 [place] [address] (two) Medical times [place] daily. cyclobenzap Yes 10mg Take 10 mg Univers rine 10 mg 5-12 by mouth 3 ity of tablet 15:09: (three) [place] [address] times [facility] daily. Branch pilocarpine Yes 7.5mg Take 7.5 U nivers 7.5 mg 5-12 mg by ity of tablet 15:09: mouth 3 [place] [address] (three) Medical times [place] daily. Armodafinil Yes 250mg Take 250 U nivers (NUVIGIL) 5-12 mg by ity of 250 mg Tab 15:09: mouth [place] [address] daily. Medical Branch cycloSPORIN Yes 1[drp] Place 1 U nivers E 5-12 Drop in ity of (RESTASIS) 15:09: both eyes [place] 0.05 % 27 every 12 Medical drops (twelve) Branch hours. aspirin 81 Yes 81mg Take 81 mg U nivers mg chewable 5-12 by mouth ity of tablet 15:09: daily. [address] Branch atorvastati Yes 10mg Take 10 mg Univers n 10 mg 5-12 by mouth. ity of tablet 15:09: [address] doxepin 10 Yes 10mg Take 10 mg U nivers mg capsule 5-12 by mouth. ity of 15:09: [address] insulin Yes 160U inject 160 Univ ers glargine 5-12 Units ity of U-300 conc 15:09: under the [place] (TOUJEO 27 skin. Medical SOLOSTAR Branch U-300 INSULIN) 300 unit/mL (1.5 mL) InPn lithium Yes 300mg Take 300 Unive rs carbonate 5-12 mg by ity of 300 mg 15:09: mouth. [place] [address] Medical Branch SERTraline Yes 50mg Take 50 mg U nivers 50 mg 5-12 by mouth. ity of tablet 15:09: [address] Branch celecoxib Yes 200mg Take 200 Uni vers (CELEBREX) 5-12 mg by ity of 200 mg 15:09: mouth 2 [place] [address] (two) Medical times Branch daily. hydroxychlo Yes 200mg Take 200 U nivers roquine 200 5-12 mg by ity of mg tablet 15:09: mouth 2 [place] [address] (two) Medical times [place] daily. cyclobenzap Yes 10mg Take 10 mg Univers rine 10 mg 5-12 by mouth 3 ity of tablet 15:09: (three) [place] [address] times [facility] daily. Branch pilocarpine Yes 7.5mg Take 7.5 U nivers 7.5 mg 5-12 mg by ity of tablet 15:09: mouth 3 [place] [address] (three) Medical times [place] daily. Armodafinil Yes 250mg Take 250 U nivers (NUVIGIL) 5-12 mg by ity of 250 mg Tab 15:09: mouth [place] [address] daily. Medical Branch cycloSPORIN Yes 1[drp] Place 1 U nivers E 5-12 Drop in ity of (RESTASIS) 15:09: both eyes [place] 0.05 % 27 every 12 Medical drops (twelve) Branch hours. aspirin 81 Yes 81mg Take 81 mg U nivers mg chewable 5-12 by mouth ity of tablet 15:09: daily. [address] atorvastati Yes 10mg Take 10 mg Univers n 10 mg 5-12 by mouth. ity of tablet 15:09: [address] doxepin 10 Yes 10mg Take 10 mg U nivers mg capsule 5-12 by mouth. ity of 15:09: [address] insulin Yes 160U inject 160 Univ ers glargine 5-12 Units ity of U-300 conc 15:09: under the [place] ([place] 27 skin. Medical SOLOSTAR Branch U-300 INSULIN) 300 unit/mL (1.5 mL) InPn lithium Yes 300mg Take 300 Unive rs carbonate 5-12 mg by ity of 300 mg 15:09: mouth. [place] [address] Medical Branch SERTraline Yes 50mg Take 50 mg U nivers 50 mg 5-12 by mouth. ity of tablet 15:09: [place] [address] Medical Branch celecoxib Yes 200mg Take 200 Uni vers (CELEBREX) 5-12 mg by ity of 200 mg 15:09: mouth 2 [place] [address] (two) Medical times Branch daily. hydroxychlo Yes 200mg Take 200 U nivers roquine 200 5-12 mg by ity of mg tablet 15:09: mouth 2 [place] [address] (two) Medical times Branch daily. cyclobenzap Yes 10mg Take 10 mg Univers rine 10 mg 5-12 by mouth 3 ity of tablet 15:09: (three) [place] [address] times [facility] daily. Branch pilocarpine Yes 7.5mg Take 7.5 U nivers 7.5 mg 5-12 mg by ity of tablet 15:09: mouth 3 [place] [address] (three) Medical times [place] daily. Armodafinil Yes 250mg Take 250 U nivers (NUVIGIL) 5-12 mg by ity of 250 mg Tab 15:09: mouth [place] [address] daily. Medical Branch cycloSPORIN Yes 1[drp] Place 1 U nivers E 5-12 Drop in ity of (RESTASIS) 15:09: both eyes [place] 0.05 % 27 every 12 Medical drops (twelve) Branch hours. aspirin 81 Yes 81mg Take 81 mg U nivers mg chewable 5-12 by mouth ity of tablet 15:09: daily. [address] Branch atorvastati Yes 10mg Take 10 mg Univers n 10 mg 5-12 by mouth. ity of tablet 15:09: [address] Branch doxepin 10 Yes 10mg Take 10 mg U nivers mg capsule 5-12 by mouth. ity of 15:09: [address] insulin Yes 160U inject 160 Univ ers glargine 5-12 Units ity of U-300 conc 15:09: under the [place] ([place] 27 skin. Medical SOLOSTAR Branch U-300 INSULIN) 300 unit/mL (1.5 mL) InPn lithium Yes 300mg Take 300 Unive rs carbonate 5-12 mg by ity of 300 mg 15:09: mouth. [place] [address] Medical Branch SERTraline Yes 50mg Take 50 mg U nivers 50 mg 5-12 by mouth. ity of tablet 15:09: [address] Branch celecoxib Yes 200mg Take 200 Uni vers (CELEBREX) 5-12 mg by ity of 200 mg 15:09: mouth 2 [place] [address] (two) Medical times Branch daily. hydroxychlo Yes 200mg Take 200 U nivers roquine 200 5-12 mg by ity of mg tablet 15:09: mouth 2 [place] [address] (two) Medical times [place] daily. cyclobenzap Yes 10mg Take 10 mg Univers rine 10 mg 5-12 by mouth 3 ity of tablet 15:09: (three) [place] [address] times [facility] daily. Branch pilocarpine Yes 7.5mg Take 7.5 U nivers 7.5 mg 5-12 mg by ity of tablet 15:09: mouth 3 [place] [address] (three) Medical times Branch daily. Armodafinil Yes 250mg Take 250 U nivers (NUVIGIL) 5-12 mg by ity of 250 mg Tab 15:09: mouth [place] [address] daily. Medical Branch cycloSPORIN Yes 1[drp] Place 1 U nivers E 5-12 Drop in ity of (RESTASIS) 15:09: both eyes [place] 0.05 % 27 every 12 Medical drops (twelve) Branch hours. aspirin 81 Yes 81mg Take 81 mg U nivers mg chewable 5-12 by mouth ity of tablet 15:09: daily. [address] Branch atorvastati Yes 10mg Take 10 mg Univers n 10 mg 5-12 by mouth. ity of tablet 15:09: [address] Branch doxepin 10 Yes 10mg Take 10 mg U nivers mg capsule 5-12 by mouth. ity of 15:09: [address] Branch insulin Yes 160U inject 160 Univ ers glargine 5-12 Units ity of U-300 conc 15:09: under the [place] ([place] 27 skin. Medical SOLOSTAR Branch U-300 INSULIN) 300 unit/mL (1.5 mL) InPn lithium Yes 300mg Take 300 Unive rs carbonate 5-12 mg by ity of 300 mg 15:09: mouth. [place] [address] Medical Branch SERTraline Yes 50mg Take 50 mg U nivers 50 mg 5-12 by mouth. ity of tablet 15:09: [address] celecoxib Yes 200mg Take 200 Uni vers (CELEBREX) 5-12 mg by ity of 200 mg 15:09: mouth 2 [place] [address] (two) Medical times Branch daily. hydroxychlo Yes 200mg Take 200 U nivers roquine 200 5-12 mg by ity of mg tablet 15:09: mouth 2 [place] [address] (two) Medical times Branch daily. cyclobenzap Yes 10mg Take 10 mg [facility] rine 10 mg 5-12 by mouth 3 ity of tablet 15:09: (three) [place] [address] times [facility] daily. Branch pilocarpine Yes 7.5mg Take 7.5 U nivers 7.5 mg 5-12 mg by ity of tablet 15:09: mouth 3 [place] [address] (three) Medical times Branch daily. Armodafinil Yes 250mg Take 250 U nivers (NUVIGIL) 5-12 mg by ity of 250 mg Tab 15:09: mouth [place] [address] daily. Medical Branch cycloSPORIN Yes 1[drp] Place 1 U nivers E 5-12 Drop in ity of (RESTASIS) 15:09: both eyes [place] 0.05 % 27 every 12 Medical drops (twelve) Branch hours. aspirin 81 Yes 81mg Take 81 mg U nivers mg chewable 5-12 by mouth ity of tablet 15:09: daily. [address] atorvastati Yes 10mg Take 10 mg Univers n 10 mg 5-12 by mouth. ity of tablet 15:09: [place] 27 Medical Branch doxepin 10 Yes 10mg Take 10 mg U nivers mg capsule 5-12 by mouth. ity of 15:09: [place] [address] Medical Branch insulin Yes 160U inject 160 Univ ers glargine 5-12 Units ity of U-300 conc 15:09: under the [place] ([facility] skin. Medical SOLOSTAR Branch U-300 INSULIN) 300 unit/mL (1.5 mL) InPn lithium Yes 300mg Take 300 Unive rs carbonate 5-12 mg by ity of 300 mg 15:09: mouth. [place] [address] Medical Branch SERTraline Yes 50mg Take 50 mg U nivers 50 mg 5-12 by mouth. ity of tablet 15:09: [address] celecoxib Yes 200mg Take 200 Uni vers (CELEBREX) 5-12 mg by ity of 200 mg 15:09: mouth 2 [place] [address] (two) Medical times Branch daily. hydroxychlo Yes 200mg Take 200 U nivers roquine 200 5-12 mg by ity of mg tablet 15:09: mouth 2 [place] [address] (two) Medical times Branch daily. cyclobenzap Yes 10mg Take 10 mg Univers rine 10 mg 5-12 by mouth 3 ity of tablet 15:09: (three) [place] [address] times [facility] daily. Branch pilocarpine Yes 7.5mg Take 7.5 U nivers 7.5 mg 5-12 mg by ity of tablet 15:09: mouth 3 [place] [address] (three) Medical times [place] daily. Armodafinil Yes 250mg Take 250 U nivers (NUVIGIL) 5-12 mg by ity of 250 mg Tab 15:09: mouth [place] [address] daily. Medical Branch cycloSPORIN Yes 1[drp] Place 1 U nivers E 5-12 Drop in ity of (RESTASIS) 15:09: both eyes [place] 0.05 % 27 every 12 Medical drops (twelve) Branch hours. aspirin 81 Yes 81mg Take 81 mg U nivers mg chewable 5-12 by mouth ity of tablet 15:09: daily. [address] Branch atorvastati Yes 10mg Take 10 mg Univers n 10 mg 5-12 by mouth. ity of tablet 15:09: [address] doxepin 10 Yes 10mg Take 10 mg U nivers mg capsule 5-12 by mouth. ity of 15:09: [address] insulin 0 Yes 160U inject 160 Univ ers glargine 5-12 Units ity of U-300 conc 15:09: under the [place] ([place] 27 skin. Medical SOLOSTAR Branch U-300 INSULIN) 300 unit/mL (1.5 mL) InPn lithium Yes 300mg Take 300 Unive rs carbonate 5-12 mg by ity of 300 mg 15:09: mouth. [address] SERTraline Yes 50mg Take 50 mg U nivers 50 mg 5-12 by mouth. ity of tablet 15:09: [address] celecoxib Yes 200mg Take 200 Uni vers (CELEBREX) 5-12 mg by ity of 200 mg 15:09: mouth 2 [place] [address] (two) Medical times Branch daily. hydroxychlo Yes 200mg Take 200 U nivers roquine 200 5-12 mg by ity of mg tablet 15:09: mouth 2 [place] [address] (two) Medical times [place] daily. cyclobenzap Yes 10mg Take 10 mg Univers rine 10 mg 5-12 by mouth 3 ity of tablet 15:09: (three) [place] [address] times [facility] daily. Branch pilocarpine Yes 7.5mg Take 7.5 U nivers 7.5 mg 5-12 mg by ity of tablet 15:09: mouth 3 [place] [address] (three) Medical times Branch daily. Armodafinil Yes 250mg Take 250 U nivers (NUVIGIL) 5-12 mg by ity of 250 mg Tab 15:09: mouth [place] [address] daily. Medical Branch cycloSPORIN Yes 1[drp] Place 1 U nivers E 5-12 Drop in ity of (RESTASIS) 15:09: both eyes [place] 0.05 % 27 every 12 Medical drops (twelve) Branch hours. aspirin 81 0 Yes 81mg Take 81 mg U nivers mg chewable 5-12 by mouth ity of tablet 15:09: daily. [address] Branch atorvastati Yes 10mg Take 10 mg Univers n 10 mg 5-12 by mouth. ity of tablet 15:09: [address] Branch doxepin 10 Yes 10mg Take 10 mg U nivers mg capsule 5-12 by mouth. ity of 15:09: [address] Branch insulin Yes 160U inject 160 Univ ers glargine 5-12 Units ity of U-300 conc 15:09: under the [place] ([place] 27 skin. Medical SOLOSTAR Branch U-300 INSULIN) 300 unit/mL (1.5 mL) InPn lithium Yes 300mg Take 300 Unive rs carbonate 5-12 mg by ity of 300 mg 15:09: mouth. [place] [address] Medical Branch SERTraline Yes 50mg Take 50 mg U nivers 50 mg 5-12 by mouth. ity of tablet 15:09: [address] celecoxib Yes 200mg Take 200 Uni vers (CELEBREX) 5-12 mg by ity of 200 mg 15:09: mouth 2 [place] [address] (two) Medical times Branch daily. hydroxychlo Yes 200mg Take 200 U nivers roquine 200 5-12 mg by ity of mg tablet 15:09: mouth 2 [place] [address] (two) Medical times Branch daily. cyclobenzap Yes 10mg Take 10 mg Univers rine 10 mg 5-12 by mouth 3 ity of tablet 15:09: (three) [place] [address] times Medical daily. Branch pilocarpine Yes 7.5mg Take 7.5 U nivers 7.5 mg 5-12 mg by ity of tablet 15:09: mouth 3 [place] [address] (three) Medical times Branch daily. Armodafinil Yes 250mg Take 250 U nivers (NUVIGIL) 5-12 mg by ity of 250 mg Tab 15:09: mouth [place] [address] daily. Medical Branch cycloSPORIN Yes 1[drp] Place 1 U nivers E 5-12 Drop in ity of (RESTASIS) 15:09: both eyes [place] 0.05 % 27 every 12 Medical drops (twelve) Branch hours. aspirin 81 2021-0 Yes 81mg Take 81 mg U nivers mg chewable 5-12 by mouth ity of tablet 15:09: daily. [address] atorvastati Yes 10mg Take 10 mg Univers n 10 mg 5-12 by mouth. ity of tablet 15:09: [address] doxepin 10 Yes 10mg Take 10 mg U nivers mg capsule 5-12 by mouth. ity of 15:09: [address] insulin Yes 160U inject 160 Univ ers glargine 5-12 Units ity of U-300 conc 15:09: under the [place] ([place] 27 skin. [facility] SOLOSTAR [place] U-300 INSULIN) 300 unit/mL (1.5 mL) InPn lithium Yes 300mg Take 300 Unive rs carbonate 5-12 mg by ity of 300 mg 15:09: mouth. [address] SERTraline Yes 50mg Take 50 mg U nivers 50 mg 5-12 by mouth. ity of tablet 15:09: [address] atorvastati Yes 10mg Take 10 mg Univers n 10 mg 5-12 by mouth. ity of tablet 15:09: [address] atorvastati Yes 10mg Take 10 mg Univers n 10 mg 5-12 by mouth. ity of tablet 15:09: [address] atorvastati Yes 10mg Take 10 mg Univers n 10 mg 5-12 by mouth. ity of tablet 15:09: [address] exenatide Yes 2mg inject 2 Univ ers microsphere 5-12 mg under ity of s 2 mg/0.65 15:07: the skin. [place] mL 40 Medical injection Branch exenatide 0 Yes 2mg inject 2 Univ ers microsphere 5-12 mg under ity of s 2 mg/0.65 15:07: the skin. [place] mL 40 Medical injection Branch exenatide 2020-0 Yes 2mg inject 2 Univ ers microsphere 5-12 mg under ity of s 2 mg/0.65 15:07: the skin. [place] mL 40 Medical injection Branch exenatide 0 Yes 2mg inject 2 Univ [...] 40 Medical injection Branch oxybutynin 1-0 Yes [id number] 5mg Take 1 U nivers XL 5 mg 24 5-12 tablet by ity of hr tablet 00:00: mouth [place] 00 daily. Medical Branch oxybutynin 2020-0 Yes [id number] 5mg Take 1 U nivers XL 5 mg 24 5-12 tablet by ity of hr tablet 00:00: mouth [place] 00 daily. Medical Branch oxybutynin 2020-0 Yes [id number] 5mg Take 1 U nivers XL 5 mg 24 5-12 tablet by ity of hr tablet 00:00: mouth [place] 00 daily. Medical Branch oxybutynin 2020-0 Yes [id number] 5mg Take 1 U nivers XL 5 mg 24 5-12 tablet by ity of hr tablet 00:00: mouth [place] 00 daily. Medical Branch oxybutynin 2020-0 Yes [id number] 5mg Take 1 U nivers XL 5 mg 24 5-12 tablet by ity of hr tablet 00:00: mouth [place] 00 daily. Medical Branch oxybutynin 2020-0 Yes [id number] 5mg Take 1 U nivers XL 5 mg 24 5-12 tablet by ity of hr tablet 00:00: mouth [place] 00 daily. Medical Branch oxybutynin 2020-0 Yes [id number] 5mg Take 1 U nivers XL 5 mg 24 5-12 tablet by ity of hr tablet 00:00: mouth [place] 00 daily. Medical Branch oxybutynin 2020-0 Yes [id number] 5mg Take 1 U nivers XL 5 mg 24 5-12 tablet by ity of hr tablet 00:00: mouth [place] 00 daily. Medical Branch oxybutynin 2020-0 Yes [id number] 5mg Take 1 U nivers XL 5 mg 24 5-12 tablet by ity of hr tablet 00:00: mouth [place] 00 daily. Medical Branch oxybutynin 2020-0 Yes [id number] 5mg Take 1 U nivers XL 5 mg 24 5-12 tablet by ity of hr tablet 00:00: mouth [place] 00 daily. Medical Branch oxybutynin 2020-0 Yes [id number] 5mg Take 1 U nivers XL 5 mg 24 5-12 tablet by ity of hr tablet 00:00: mouth [place] 00 daily. Medical Branch oxybutynin 2020-0 Yes [id number] 5mg Take 1 U nivers XL 5 mg 24 5-12 tablet by ity of hr tablet 00:00: mouth [place] 00 daily. Medical Branch oxybutynin 2020-0 Yes [id number] 5mg Take 1 U nivers XL 5 mg 24 5-12 tablet by ity of hr tablet 00:00: mouth [place] 00 daily. Medical Branch oxybutynin 2020-0 Yes [id number] 5mg Take 1 U nivers XL 5 mg 24 5-12 tablet by ity of hr tablet 00:00: mouth [place] 00 daily. Medical Branch oxybutynin 2020-0 Yes [id number] 5mg Take 1 U nivers XL 5 mg 24 5-12 tablet by ity of hr tablet 00:00: mouth [place] 00 daily. Medical Branch oxybutynin 2020-0 Yes [id number] 5mg Take 1 U nivers XL 5 mg 24 5-12 tablet by ity of hr tablet 00:00: mouth [place] 00 daily. [facility] armodafinil 2020-0 Yes 250mg QD Take 250 [...] tablet 00:00: 00 oxybutynin 2020-0 2021- No [id number] 5mg Take 1 Univers XL 5 mg 24 5-01 17- tablet by ity of hr tablet 00:00: 00:00 mouth [place] 00 :00 daily. [facility] oxybutynin 2020-0 2021- No [id number] 5mg Take 1 Univers XL 5 mg 24 5-10-10 tablet by ity of hr tablet 00:00: 00:00 mouth [place] 00 :00 daily. [facility] metformin 2020-0 Yes Univers ER 500 mg 5-10 ity of 24 hr 00:00: [place] tablet 00 [facility] metformin 1-0 Yes Univers ER 500 mg 5-10 ity of 24 hr 00:00: [place] tablet 00 [facility] metformin 1-0 Yes Univers ER 500 mg 5-10 ity of 24 hr 00:00: [place] tablet 00 [facility] metformin 1-0 Yes Univers ER 500 mg 5-10 ity of 24 hr 00:00: [place] tablet 00 [facility] metformin 1-0 Yes Univers ER 500 mg 5-10 ity of 24 hr 00:00: [place] tablet 00 [facility] metformin 2021-0 Yes Univers ER 500 mg 5-10 ity of 24 hr 00:00: [place] tablet 00 [facility] metformin 2021-0 Yes Univers ER 500 mg 5-10 ity of 24 hr 00:00: [place] tablet 00 [facility] metformin 2021-0 Yes Univers ER 500 mg 5-10 ity of 24 hr 00:00: [place] tablet 00 [facility] metformin 2021-0 Yes Univers ER 500 mg [...] [place] tablet 00 Medical Branch metformin 2021-0 2022- No Univers ER 500 mg 5-10 08-31 ity of 24 hr 00:00: 00:00 [place] tablet 00 :00 Medical Branch metformin 2021-0 2022- No Univers ER 500 mg 5-10 08-31 ity of 24 hr 00:00: 00:00 [place] tablet 00 :00 Medical Branch gabapentin 2021-0 Yes Univers 300 mg 4-23 ity of capsule 00:00: [place] [facility] Branch gabapentin 2021-0 Yes Univers 300 mg 4-23 ity of capsule 00:00: [place] [facility] gabapentin 2021-0 Yes Univers 300 mg 4-23 ity of capsule 00:00: [place] [facility] gabapentin 2021-0 Yes Univers 300 mg 4-23 ity of capsule 00:00: [place] [facility] gabapentin 2021-0 Yes Univers 300 mg 4-23 ity of capsule 00:00: [place] [facility] gabapentin 2021-0 Yes Univers 300 mg 4-23 ity of capsule 00:00: [place] [facility] gabapentin 2021-0 Yes Univers 300 mg 4-23 ity of capsule 00:00: [place] [facility] gabapentin 2021-0 Yes Univers 300 mg 4-23 ity of capsule 00:00: [place] [facility] gabapentin 2021-0 Yes Univers 300 mg 4-23 ity of capsule 00:00: [place] 00 Medical Branch gabapentin 2021-0 Yes Univers 300 mg 4-23 ity of capsule 00:00: [place] 00 Medical Branch gabapentin 2021-0 Yes Univers 300 mg 4-23 ity of capsule 00:00: [place] 00 Medical Branch gabapentin 2021-0 Yes Univers 300 mg 4-23 ity of capsule 00:00: [place] 00 Medical Branch gabapentin 2021-0 Yes Univers 300 mg 4-23 ity of capsule 00:00: [place] 00 Medical Branch gabapentin 2021-0 Yes Univers 300 mg 4-23 ity of capsule 00:00: [place] 00 Medical Branch gabapentin 2021-0 Yes Univers 300 mg 4-23 ity of capsule 00:00: [place] 00 Medical Branch gabapentin 2021-0 Yes Univers 300 mg 4-23 ity of capsule 00:00: [place] 00 Medical Branch gabapentin 2021-0 2022- No Univer s 300 mg 4-23 08-31 ity of capsule 00:00: 00:00 [place] 00 :00 Medical Branch gabapentin 2021-0 2022- No Univer s 300 mg 4-23 08-31 ity of capsule 00:00: 00:00 [place] 00 :00 Medical Branch lisinopriL- 2021-0 Yes Univer s hydrochloro 4-07 ity of thiazide 00:00: [place] 20-12.5 mg 00 Medical per tablet Branch lisinopriL- 2020-0 Yes Univer s hydrochloro 4-07 ity of thiazide 00:00: [place] 20-12.5 mg 00 Medical per tablet Branch lisinopriL- 2021-0 Yes Univer s hydrochloro 4-07 ity of thiazide 00:00: [place] 20-12.5 mg 00 Medical per tablet Branch lisinopriL- 2021-0 Yes Univer s hydrochloro 4-07 ity of thiazide 00:00: [place] 20-12.5 mg 00 Medical per tablet Branch lisinopriL- 202-0 Yes Univer s hydrochloro 4-07 ity of thiazide 00:00: [place] 20-12.5 mg 00 Medical per tablet Branch lisinopriL- 202-0 Yes Univer s hydrochloro 4-07 ity of thiazide 00:00: [place] 20-12.5 mg 00 Medical per tablet Branch lisinopriL- 2020-0 Yes Univer s hydrochloro 4-07 ity of thiazide 00:00: [place] 20-12.5 mg 00 Medical per tablet Branch lisinopriL- Yes [facility] s hydrochloro 4-07 ity of thiazide 00:00: [place] 20-12.5 mg 00 Medical per tablet Branch lisinopriL- Yes [facility] hydrochloro 4-07 ity of thiazide 00:00: [place] 20-12.5 mg 00 Medical per tablet Branch lisinopriL- Yes [facility] hydrochloro 4-07 ity of thiazide 00:00: [place] 20-12.5 mg 00 Medical per tablet Branch lisinopriL- Yes [facility] hydrochloro 4-07 ity of thiazide 00:00: [place] 20-12.5 mg 00 Medical per tablet Branch lisinopriL- Yes [facility] hydrochloro 4-07 ity of thiazide 00:00: [place] 20-12.5 mg 00 Medical per tablet Branch lisinopriL- Yes [facility] hydrochloro 4-07 ity of thiazide 00:00: [place] 20-12.5 mg 00 Medical per tablet Branch lisinopriL- Yes [facility] hydrochloro 4-07 ity of thiazide 00:00: [place] 20-12.5 mg 00 Medical per tablet Branch lisinopriL- Yes [facility] hydrochloro 4-07 ity of thiazide 00:00: [place] 20-12.5 mg 00 Medical per tablet Branch lisinopriL- 0 Yes [facility] hydrochloro 4-07 ity of thiazide 00:00: [place] 20-12.5 mg 00 Medical per tablet Branch lisinopriL- Yes [facility] hydrochloro 4-07 ity of thiazide 00:00: [place] 20-12.5 mg 00 Medical per tablet Branch lisinopriL- 0 Yes [facility] hydrochloro 4-07 ity of thiazide 00:00: [place] 20-12.5 mg 00 Medical per tablet Branch lisinopriL- 0 Yes [facility] hydrochloro 4-07 ity of thiazide 00:00: [place] 20-12.5 mg 00 Medical per tablet Branch thiamine 0 2020- No 50mg QD Take 0.5 Meth gwen mononitrate 3-27 04-[address] , vit B1, 00:00: 04:59 (50 mg Hospi ta (B-1) 100 00 :00 total) by l mg tablet mouth daily for 30 days. cyclobenzap 2020-0 202- No 10mg [id number] Take 10 mg [facility] rine 3-26 03-26 [id number] mouth [address] (FLEXERIL) 21:43: 00:00 [...] a l tablet day. PILOCARPINE Yes 7.5mg Q.[id number] Take 7.5 [facility] HCL ORAL - [id number] mg by st 21:43: 3D mouth 3 [...] tablet 19 l lithium 300 Yes 300mg Q.[id number] Take 300 [facility] MG capsule - [id number] mg by st 21:43: 3D mouth 3 Hospita 19 (three) l times a day with meals. metFORMIN Yes 1000mg Q.5D Take 1,000 [facility] XR [...] every 30 (thirty) days. insulin Yes 22U [id number] Inject 22 [facility] lispro 3-[id number] (HUMALOG 21:43: 3D under the [...] 300 unit/mL (1.5 mL) insulin pen celecoxib 2020-0 Yes 200mg Q.5D Take 200 [facility] (CeleBREX) 3-[address] 200 MG 16:43: mouth 2 Hospita capsule 19 (two) l times a day. hydroxychlo 2021-0 Yes Q.5D Take by [facility] roquine 3-[address] (PLAQUENIL) 16:43: (two) Hospi ta 200 mg 19 times a l tablet day. PILOCARPINE 2020-0 Yes 7.5mg [id number] Take 7.5 [facility] HCL ORAL 3-[id number] 16:43: 3D mouth 3 [...] 2 mg/0.65 days. mL pen injector aspirin 2020-0 Yes 81mg QD Take 81 mg Meth gwen (ECOTRIN) 3-[address] 81 MG 16:43: daily. Hospita enteric 19 l coated tablet ALPRAZolam 2020-0 Yes .5mg Q.5D Take 0.5 [facility] (NIRAVAM) 3-[address] 0.5 MG 16:43: mouth 2 Hospita disintegrat 19 (two) l ing tablet times a day as needed for anxiety. cycloSPORIN 2020-0 Yes 1[drp] Q.5D Administer [facility] E 3-[address] (RESTASIS) 16:43: both eyes [facility] 0.05 % 19 2 (two) l ophthalmic times a emulsion day. doxepin 2020-0 Yes 10mg QD Take 10 mg Meth gwen (SINEquan) 3-[address] 10 MG 16:43: nightly. Hospita capsule 19 l leflunomide 2020-0 Yes 20mg QD Take 20 mg [facility] (ARAVA) 20 3-[address] MG tablet 16:43: nightly. Hosp ruiz 19 l atorvastati Yes 10mg QD Take 10 mg Methodi n (LIPITOR) 3-[address] 10 mg 16:43: nightly. Hospita tablet 19 l lithium 300 Yes 300mg Q.[id number] Take 300 [facility] MG capsule 3-[id number] 16:43: 3D mouth 3 Hospita 19 (three) l times a day with meals. metFORMIN Yes 1000mg Q.5D Take 1,000 [facility] XR 3-[address] (GLUCOPHAGE 16:43: mouth 2 Hos ileana -XR) 500 mg 19 (two) l 24 hr times a tablet day with meals. sertraline Yes 50mg QD Take 50 mg M ethodi (ZOLOFT) 50 3-[address] MG tablet 16:43: daily. Hospit a 19 l golimumab Yes Q30D Infuse Method i (SIMPONI 3-[address] ARIA IV) 16:43: venous Hospita 19 catheter l every 30 (thirty) days. insulin Yes 22U [id number] Inject 22 [facility] lispro 3-[id number] (HUMALOG 16:43: 3D under the [...] 0.05 % 00 eye ophthalmic emulsion predniSONE No 20mg QD Take 1 Meth gwen (DELTASONE) 05-05 tablet (20 s t 20 mg 00:00: 04:59 mg total) Hospit a tablet 00 :00 by mouth l daily for 5 days. suvorexant 2020- No QD Take by [facility] (BELSOMRA) 05-[address] 20 mg 21:42: 00:00 nightly. [...] Q7D Inject 0.7 [facility] E SODIUM 05-[address] INJ 21:41: 00:00 directed [...] QD Take 75 mg [facility] (PLAVIX) 75 05-04- by mouth st mg tablet 21:38: 00:00 daily. Hospi ta 27 :00 l bromfenac 2020- No 1[drp] QD Administer [facility] (XIBROM) 05-[address] 0.09 % 21:37: 00:00 into the Hospit a ophthalmic 23 :00 left eye l solution daily. ARIPiprazol 2020- No 20mg QD Take 20 mg [facility] e (ABILIFY) 05-04-[address] 10 MG 21:36: 00:00 daily. Hospita tablet 49 :00 l Kenalog Kenalog 2020-0 No 40mg Common (Triamcinol (Triamcinol 9-22 S pirit one) one) 00:00: - [facility] Kenalog Kenalog 2020-0 No 40mg Common (Triamcinol (Triamcinol 9-22 S pirit one) one) 00:00: - [facility] Kenalog Kenalog 2020-0 No 40mg Common (Triamcinol (Triamcinol 9-22 S pirit one) one) 00:00: - [facility] Kenalog Kenalog 2020-0 No 40mg Common (Triamcinol (Triamcinol 9-22 S pirit one) one) 00:00: - [facility] Kenalog Kenalog 2020-0 No 40mg Common (Triamcinol (Triamcinol 9-22 S pirit one) one) 00:00: - [facility] Kenalog Kenalog 2020-0 No 40mg Common (Triamcinol (Triamcinol 9-22 S pirit one) one) 00:00: - [facility] Kenalog Kenalog 2020-0 No 40mg Common (Triamcinol (Triamcinol 9-22 S pirit one) one) 00:00: - [facility] Kenalog Kenalog 2020-0 No 40mg Common (Triamcinol (Triamcinol 9-22 S pirit one) one) 00:00: - [facility] Kenalog Kenalog 2020-0 No 40mg Common (Triamcinol (Triamcinol 9-22 S pirit one) one) 00:00: - [facility] Kenalog Kenalog 2020-0 No 40mg Common (Triamcinol (Triamcinol 9-22 S pirit one) one) 00:00: - [facility] Kenalog Kenalog 2020-0 No 40mg Common (Triamcinol (Triamcinol 9-22 S pirit one) one) 00:00: - [facility] Kenalog Kenalog 2020-0 No 40mg Common (Triamcinol (Triamcinol 9-22 S pirit one) one) 00:00: - [facility] Kenalog Kenalog 2020-0 No 40mg Common (Triamcinol (Triamcinol 9-22 S pirit one) one) 00:00: - [facility] Kenalog Kenalog 2020-0 No 40mg Common (Triamcinol (Triamcinol 9-22 S pirit one) one) 00:00: - [facility] Kenalog Kenalog 2020-0 No 40mg Common (Triamcinol (Triamcinol 9-22 S pirit one) one) 00:00: - [facility] Amoxicillin Amoxicillin 2020-0 2020- No Luciano 1 capsule Common 10-26 [facility] 00:00: 00:00 - [facility]00 [facility] atorvastati 2020-0 Yes 1 tablet [place] n (Lipitor) 8-20 Health 10 MG 00:00: tablet 00 atorvastati 2020-0 Yes 1 tablet [place] n (Lipitor) 8-20 Health 10 MG 00:00: tablet 00 Furosemide Furosemide Yes Luciano 0.5 tablet Common 06-10 [facility] 00:00: - [facility] Furosemide Furosemide No .5{tabl QD Furosemide 20 [...] MG 5-01 et} 20 MG 00:00: 00 Hydrocodone Hydrocodone 2017-02 Yes Luciano 1 tablet Common -Acetaminop -Acetaminop 0-01 [facility] as needed Spirit hen hen 00:00: - [facility] HYDROcodone HYDROcodone 2017-02 No 1{table BID HYDROcodon [...] MG MG 00 5-325 MG Tolterodine Tolterodine 2017- Yes SHEFALI 1 PO QD UT Tartrate ER Tartrate ER 4-30 [facility] 4 MG Oral 4 MG Oral 00:00: N.P. ans Capsule Capsule 00 Extended Extended Release 24 Release 24 Hour Hour sulfamethox 2016- Yes 1{tbl} Take 1 Un emanuel azole-trime [...] tablet (twelve) Branc h hours. sulfamethox 2017-0 2021- No 1{tbl} Take 1 U nivers azole-trime 7-31 08-31 tablet by it y of thoprim 00:00: 00:00 mouth [place] 800-160 mg 00 :00 every 12 Medic al per tablet (twelve) Branc h hours. sulfamethox 2017-0 2021- No 1{tbl} Take 1 U nivers azole-trime 7-31 08-31 tablet by it y of thoprim 00:00: 00:00 mouth [place] 800-160 mg 00 :00 every 12 Medic al per tablet (twelve) Branc h hours. simvastatin 2017-0 Yes 40mg Take 40 mg Univers 40 mg 6-15 by mouth ity of tablet 18:18: at [place] [address] bedtime. Medical Branch traZODONE 2017-0 Yes 100mg Take Univers 100 mg 6-15 100-200 mg ity of tablet 18:18: by mouth [place] [address] at bedtime Medical as needed Branch for Insomnia. ARIPiprazol 2017-0 Yes 20mg Take 20 mg Univers e (ABILIFY) 6-15 by mouth ity of 20 mg 18:18: at [facility] [place] 54 bedtime. Medical Branch suvorexant 20170 Yes 20mg Take 20 mg U nivers (BELSOMRA) 6-15 by mouth ity o f 20 mg Tab 18:18: at [place] [address] bedtime. Medical Branch prednisoLON 2017-0 Yes 1[drp] 1 Drop Un emanuel E acetate 1 6-15 every 2 ity o f % 18:18: (two) [place] [facility] 54 hours as Medic al suspension needed for Bra nch drops Itching. foLIC acid 20170 Yes 2mg Take 2 mg Un emanuel 1 mg tablet 6-15 by mouth ity of 18:18: daily. [place] [address] Medical Branch simvastatin 2017-0 Yes 40mg Take 40 mg Univers 40 mg 6-15 by mouth ity of tablet 18:18: at [place] [address] bedtime. Medical Branch traZODONE 20170 Yes 100mg Take Univers 100 mg 6-15 100-200 mg ity of tablet 18:18: by mouth [place] [address] at bedtime Medical as needed Branch for Insomnia. ARIPiprazol 20170 Yes 20mg Take 20 mg Univers e (ABILIFY) 6-15 by mouth ity of 20 mg 18:18: at [facility] [place] 54 bedtime. Medical Branch suvorexant 20170 Yes 20mg Take 20 mg U nivers (BELSOMRA) 6-15 by mouth ity o f 20 mg Tab 18:18: at [place] [address] bedtime. Medical Branch prednisoLON 2017-0 Yes 1[drp] 1 Drop Un emanuel E acetate 1 6-15 every 2 ity o f % 18:18: (two) [place] [facility] 54 hours as Medic al suspension needed for Bra nch drops Itching. foLIC acid 2017-0 Yes 2mg Take 2 mg Un emanuel 1 mg tablet 6-15 by mouth ity of 18:18: daily. [place] [address] Medical Branch simvastatin 2017-0 Yes 40mg Take 40 mg Univers 40 mg 6-15 by mouth ity of tablet 18:18: at [place] [address] bedtime. Medical Branch traZODONE 2017-0 Yes 100mg Take Univers 100 mg 6-15 100-200 mg ity of tablet 18:18: by mouth [place] [address] at bedtime Medical as needed Branch for Insomnia. ARIPiprazol 2017-0 Yes 20mg Take 20 mg Univers e (ABILIFY) 6-15 by mouth ity of 20 mg 18:18: at [place] [address] bedtime. Medical Branch suvorexant 20170 Yes 20mg Take 20 mg U nivers (BELSOMRA) 6-15 by mouth ity o f 20 mg Tab 18:18: at [place] [address] bedtime. Medical Branch prednisoLON 2017-0 Yes 1[drp] 1 Drop Un emanuel E acetate 1 6-15 every 2 ity o f % 18:18: (two) [place] [facility] 54 hours as Medic al suspension needed for Bra nch drops Itching. foLIC acid 20170 Yes 2mg Take 2 mg Un emanuel 1 mg tablet 6-15 by mouth ity of 18:18: daily. [place] [address] Medical Branch simvastatin 2017-0 Yes 40mg Take 40 mg Univers 40 mg 6-15 by mouth ity of tablet 18:18: at [place] [address] bedtime. Medical Branch traZODONE 20170 Yes 100mg Take Univers 100 mg 6-15 100-200 mg ity of tablet 18:18: by mouth [place] [address] at bedtime Medical as needed Branch for Insomnia. ARIPiprazol 20170 Yes 20mg Take 20 mg Univers e (ABILIFY) 6-15 by mouth ity of 20 mg 18:18: at [place] [address] bedtime. Medical Branch suvorexant 20170 Yes 20mg Take 20 mg U nivers (BELSOMRA) 6-15 by mouth ity o f 20 mg Tab 18:18: at [place] [address] bedtime. Medical Branch prednisoLON 2017-0 Yes 1[drp] 1 Drop Un emanuel E acetate 1 6-15 every 2 ity o f % 18:18: (two) [place] [facility] 54 hours as Medic al suspension needed for Bra nch drops Itching. foLIC acid 2017-0 Yes 2mg Take 2 mg Un emanuel 1 mg tablet 6-15 by mouth ity of 18:18: daily. [place] [address] Medical Branch simvastatin 20170 Yes 40mg Take 40 mg Univers 40 mg 6-15 by mouth ity of tablet 18:18: at [place] [address] bedtime. Medical Branch traZODONE 20170 Yes 100mg Take Univers 100 mg 6-15 100-200 mg ity of tablet 18:18: by mouth [place] [address] at bedtime Medical as needed Branch for Insomnia. ARIPiprazol 20170 Yes 20mg Take 20 mg Univers e (ABILIFY) 6-15 by mouth ity of 20 mg 18:18: at [place] [address] bedtime. Medical Branch suvorexant 20170 Yes 20mg Take 20 mg U nivers (BELSOMRA) 6-15 by mouth ity o f 20 mg Tab 18:18: at [place] [address] bedtime. Medical Branch prednisoLON 20170 Yes 1[drp] 1 Drop Un emanuel E acetate 1 6-15 every 2 ity o f % 18:18: (two) [place] ophthal[facility] 54 hours as Medic al suspension needed for Bra nch drops Itching. foLIC acid Yes 2mg Take 2 mg Un emanuel 1 mg tablet 6-15 by mouth ity of 18:18: daily. [place] [address] Medical Branch simvastatin 20170 Yes 40mg Take 40 mg Univers 40 mg 6-15 by mouth ity of tablet 18:18: at [place] [address] bedtime. Medical Branch traZODONE 20170 Yes 100mg Take Univers 100 mg 6-15 100-200 mg ity of tablet 18:18: by mouth [place] [address] at bedtime Medical as needed Branch for Insomnia. ARIPiprazol 20170 Yes 20mg Take 20 mg Univers e (ABILIFY) 6-15 by mouth ity of 20 mg 18:18: at [place] [address] bedtime. Medical Branch suvorexant 20170 Yes 20mg Take 20 mg U nivers (BELSOMRA) 6-15 by mouth ity o f 20 mg Tab 18:18: at [place] [address] bedtime. Medical Branch prednisoLON 20170 Yes 1[drp] 1 Drop Un emanuel E acetate 1 6-15 every 2 ity o f % 18:18: (two) [place] ophthal[facility] 54 hours as Medic al suspension needed for Bra nch drops Itching. foLIC acid 2017-0 Yes 2mg Take 2 mg Un emanuel 1 mg tablet 6-15 by mouth ity of 18:18: daily. [place] [address] Medical Branch foLIC acid 2017-0 Yes 2mg Take 2 mg Un emanuel 1 mg tablet 6-15 by mouth ity of 13:18: daily. [place] [address] Medical Branch simvastatin 2017-0 Yes 40mg Take 40 mg Univers 40 mg 6-15 by mouth ity of tablet 13:18: at [place] [address] bedtime. Medical Branch traZODONE 20170 Yes 100mg Take Univers 100 mg 6-15 100-200 mg ity of tablet 13:18: by mouth [place] [address] at bedtime Medical as needed Branch for Insomnia. ARIPiprazol 20170 Yes 20mg Take 20 mg Univers e (ABILIFY) 6-15 by mouth ity of 20 mg 13:18: at [place] [address] bedtime. Medical Branch suvorexant 20170 Yes 20mg Take 20 mg U nivers (BELSOMRA) 6-15 by mouth ity o f 20 mg Tab 13:18: at [place] [address] bedtime. Medical Branch prednisoLON 2017-0 Yes 1[drp] 1 Drop Un emanuel E acetate 1 6-15 every 2 ity o f % 13:18: (two) [place] [address] hours as Medic al suspension needed for Bra nch drops Itching. foLIC acid 0 Yes 2mg Take 2 mg Un emanuel 1 mg tablet 6-15 by mouth ity of 13:18: daily. [place] [address] Medical Branch simvastatin 2017-0 Yes 40mg Take 40 mg Univers 40 mg 6-15 by mouth ity of tablet 13:18: at [place] [address] bedtime. Medical Branch traZODONE 20170 Yes 100mg Take Univers 100 mg 6-15 100-200 mg ity of tablet 13:18: by mouth [place] [address] at bedtime Medical as needed Branch for Insomnia. ARIPiprazol 2017-0 Yes 20mg Take 20 mg Univers e (ABILIFY) 6-15 by mouth ity of 20 mg 13:18: at [place] [address] bedtime. Medical Branch suvorexant 20170 Yes 20mg Take 20 mg U nivers (BELSOMRA) 6-15 by mouth ity o f 20 mg Tab 13:18: at [place] [address] bedtime. Medical Branch prednisoLON 2017-0 Yes 1[drp] 1 Drop Un emanuel E acetate 1 6-15 every 2 ity o f % 13:18: (two) [place] ophthal[facility] 54 hours as Medic al suspension needed for Bra nch drops Itching. foLIC acid 2017-0 Yes 2mg Take 2 mg Un emanuel 1 mg tablet 6-15 by mouth ity of 13:18: daily. [place] [address] Medical Branch simvastatin 2017-0 Yes 40mg Take 40 mg Univers 40 mg 6-15 by mouth ity of tablet 13:18: at [place] [address] bedtime. Medical Branch traZODONE 2017-0 Yes 100mg Take Univers 100 mg 6-15 100-200 mg ity of tablet 13:18: by mouth [place] [address] at bedtime Medical as needed Branch for Insomnia. ARIPiprazol 2017-0 Yes 20mg Take 20 mg Univers e (ABILIFY) 6-15 by mouth ity of 20 mg 13:18: at [place] [address] bedtime. Medical Branch suvorexant 2017-0 Yes 20mg Take 20 mg U nivers (BELSOMRA) 6-15 by mouth ity o f 20 mg Tab 13:18: at [place] [address] bedtime. Medical Branch prednisoLON 2017-0 Yes 1[drp] 1 Drop Un emanuel E acetate 1 6-15 every 2 ity o f % 13:18: (two) [place] ophthal[facility] 54 hours as Medic al suspension needed for Bra nch drops Itching. foLIC acid Yes 2mg Take 2 mg Un emanuel 1 mg tablet 6-15 by mouth ity of 13:18: daily. [place] [address] Medical Branch simvastatin 2017-0 Yes 40mg Take 40 mg Univers 40 mg 6-15 by mouth ity of tablet 13:18: at [place] [address] bedtime. Medical Branch traZODONE 20170 Yes 100mg Take Univers 100 mg 6-15 100-200 mg ity of tablet 13:18: by mouth [place] [address] at bedtime Medical as needed Branch for Insomnia. ARIPiprazol 2017-0 Yes 20mg Take 20 mg Univers e (ABILIFY) 6-15 by mouth ity of 20 mg 13:18: at [place] [address] bedtime. Medical Branch suvorexant 2017-0 Yes 20mg Take 20 mg U nivers (BELSOMRA) 6-15 by mouth ity o f 20 mg Tab 13:18: at [place] [address] bedtime. Medical Branch prednisoLON 2017-0 Yes 1[drp] 1 Drop Un emanuel E acetate 1 6-15 every 2 ity o f % 13:18: (two) [place] ophthal[facility] 54 hours as Medic al suspension needed for Bra nch drops Itching. foLIC acid 2017-0 Yes 2mg Take 2 mg Un emanuel 1 mg tablet 6-15 by mouth ity of 13:18: daily. [place] [address] Medical Branch simvastatin 2017-0 Yes 40mg Take 40 mg Univers 40 mg 6-15 by mouth ity of tablet 13:18: at [place] [address] bedtime. Medical Branch traZODONE 2017-0 Yes 100mg Take Univers 100 mg 6-15 100-200 mg ity of tablet 13:18: by mouth [place] [address] at bedtime Medical as needed Branch for Insomnia. ARIPiprazol 2017-0 Yes 20mg Take 20 mg Univers e (ABILIFY) 6-15 by mouth ity of 20 mg 13:18: at [place] [address] bedtime. Medical Branch suvorexant 2017-0 Yes 20mg Take 20 mg U nivers (BELSOMRA) 6-15 by mouth ity o f 20 mg Tab 13:18: at [place] [address] bedtime. Medical Branch prednisoLON 2017-0 Yes 1[drp] 1 Drop Un emanuel E acetate 1 6-15 every 2 ity o f % 13:18: (two) [place] ophthal[facility] 54 hours as Medic al suspension needed for Bra nch drops Itching. foLIC acid 2017-0 Yes 2mg Take 2 mg Un emanuel 1 mg tablet 6-15 by mouth ity of 13:18: daily. [place] [address] Medical Branch simvastatin 2017-0 Yes 40mg Take 40 mg Univers 40 mg 6-15 by mouth ity of tablet 13:18: at [place] [address] bedtime. Medical Branch traZODONE 2017-0 Yes 100mg Take Univers 100 mg 6-15 100-200 mg ity of tablet 13:18: by mouth [place] [address] at bedtime Medical as needed Branch for Insomnia. ARIPiprazol 2017-0 Yes 20mg Take 20 mg Univers e (ABILIFY) 6-15 by mouth ity of 20 mg 13:18: at [place] [address] bedtime. Medical Branch suvorexant 2017-0 Yes 20mg Take 20 mg U nivers (BELSOMRA) 6-15 by mouth ity o f 20 mg Tab 13:18: at [place] [address] bedtime. Medical Branch prednisoLON 2017-0 Yes 1[drp] 1 Drop Un emanuel E acetate 1 6-15 every 2 ity o f % 13:18: (two) [place] ophthal[facility] 54 hours as Medic al suspension needed for Bra nch drops Itching. foLIC acid 2017-0 Yes 2mg Take 2 mg Un emanuel 1 mg tablet 6-15 by mouth ity of 13:18: daily. [place] [address] Medical Branch simvastatin 2017-0 Yes 40mg Take 40 mg Univers 40 mg 6-15 by mouth ity of tablet 13:18: at [place] [address] bedtime. Medical Branch traZODONE 2017-0 Yes 100mg Take Univers 100 mg 6-15 100-200 mg ity of tablet 13:18: by mouth [place] [address] at bedtime Medical as needed Branch for Insomnia. ARIPiprazol 20170 Yes 20mg Take 20 mg Univers e (ABILIFY) 6-15 by mouth ity of 20 mg 13:18: at [place] [address] bedtime. Medical Branch suvorexant 20170 Yes 20mg Take 20 mg U nivers (BELSOMRA) 6-15 by mouth ity o f 20 mg Tab 13:18: at [place] [address] bedtime. Medical Branch prednisoLON 2017-0 Yes 1[drp] 1 Drop Un emanuel E acetate 1 6-15 every 2 ity o f % 13:18: (two) [place] ophthalmic 54 hours as Medic al suspension needed for Bra nch drops Itching. foLIC acid 20170 Yes 2mg Take 2 mg Un emanuel 1 mg tablet 6-15 by mouth ity of 13:18: daily. [place] [address] Medical Branch simvastatin 2017-0 Yes 40mg Take 40 mg Univers 40 mg 6-15 by mouth ity of tablet 13:18: at [place] [address] bedtime. Medical Branch traZODONE 2017-0 Yes 100mg Take Univers 100 mg 6-15 100-200 mg ity of tablet 13:18: by mouth [place] [address] at bedtime Medical as needed Branch for Insomnia. ARIPiprazol 2017-0 Yes 20mg Take 20 mg Univers e (ABILIFY) 6-15 by mouth ity of 20 mg 13:18: at [place] [address] bedtime. Medical Branch suvorexant 2017-0 Yes 20mg Take 20 mg U nivers (BELSOMRA) 6-15 by mouth ity o f 20 mg Tab 13:18: at [place] [address] bedtime. Medical Branch prednisoLON 2017-0 Yes 1[drp] 1 Drop Un emanuel E acetate 1 6-15 every 2 ity o f % 13:18: (two) [place] ophthal[facility] 54 hours as Medic al suspension needed for Bra nch drops Itching. foLIC acid 2017-0 Yes 2mg Take 2 mg Un emanuel 1 mg tablet 6-15 by mouth ity of 13:18: daily. [place] [address] Medical Branch simvastatin 2017-0 Yes 40mg Take 40 mg Univers 40 mg 6-15 by mouth ity of tablet 13:18: at [place] [address] bedtime. Medical Branch traZODONE 2017-0 Yes 100mg Take Univers 100 mg 6-15 100-200 mg ity of tablet 13:18: by mouth [place] [address] at bedtime Medical as needed Branch for Insomnia. ARIPiprazol 20170 Yes 20mg Take 20 mg Univers e (ABILIFY) 6-15 by mouth ity of 20 mg 13:18: at [place] [address] bedtime. Medical Branch suvorexant 20170 Yes 20mg Take 20 mg U nivers (BELSOMRA) 6-15 by mouth ity o f 20 mg Tab 13:18: at [place] [address] bedtime. Medical Branch prednisoLON 2017-0 Yes 1[drp] 1 Drop Un emanuel E acetate 1 6-15 every 2 ity o f % 13:18: (two) [place] ophthal[facility] 54 hours as Medic al suspension needed for Bra nch drops Itching. foLIC acid 20170 Yes 2mg Take 2 mg Un emanuel 1 mg tablet 6-15 by mouth ity of 13:18: daily. [place] [address] Medical Branch simvastatin 2017-0 Yes 40mg Take 40 mg Univers 40 mg 6-15 by mouth ity of tablet 13:18: at [place] [address] bedtime. Medical Branch traZODONE 2017-0 Yes 100mg Take Univers 100 mg 6-15 100-200 mg ity of tablet 13:18: by mouth [place] [address] at bedtime Medical as needed Branch for Insomnia. ARIPiprazol 20170 Yes 20mg Take 20 mg Univers e (ABILIFY) 6-15 by mouth ity of 20 mg 13:18: at [place] [address] bedtime. Medical Branch suvorexant 2017-0 Yes 20mg Take 20 mg U nivers (BELSOMRA) 6-15 by mouth ity o f 20 mg Tab 13:18: at [place] 54 bedtime. Medical Branch prednisoLON 2016- Yes 1[drp] 1 Drop Un emanuel E acetate 1 6-15 every 2 ity o f % 13:18: (two) [place] ophthal[facility] 54 hours as Medic al suspension needed for Bra nch drops Itching. Zetia No Notes: Memoria 08-10 (Same as: l 14:00: Zetia) [place] Dexilant No 60 mg, Memoria 08-10 Route: PO, l 14:00: Drug form: [place] DRC, Daily, Dosing Weight 134.5, kg, Start date: 08/11/15 9:00:00 CDT, Duration: 30 day, Stop date: 09/09/15 9:00:00 CDT Nuvigil No 250 mg, Memoria 08-10 Route: PO, l 14:00: Drug form: [place] 00 TAB, Daily, Dosing Weight 134.5, kg, Start date: 08/11/15 9:00:00 CDT, Duration: 30 day, Stop date: 09/09/15 9:00:00 CDT Abilify No 20 mg, Memoria 08-10 Route: PO, l 14:00: Drug form: [place] 00 TAB, Daily, Dosing Weight 134.5, kg, Start date: 08/11/15 9:00:00 CDT, Duration: 30 day, Stop date: 09/09/15 9:00:00 CDT Deplin No 15 mg, Memoria 08-10 Route: PO, l 14:00: Drug form: [place] 00 CAP, Daily, Dosing Weight 134.5, kg, Start date: 08/11/15 9:00:00 CDT, Duration: 30 day, Stop date: 09/09/15 9:00:00 CDT Hydrochloro 0 No 1 tab, Alonzo summer thiazide 08-10 Route: PO, l 12.5 MG / 14:00: Drug Form: Mikel salgado Lisinopril 00 TAB, 10 MG Oral Dosing Tablet Weight 134.5, kg, Daily, Start date: 08/11/15 9:00:00 CDT, Duration: 30 day, Stop date: 09/09/15 9:00:00 CDT Zetia 2015-0 No Notes: Memoria 08-10 (Same as: l 14:00: Zetia) Dexilant 2015-0 No 60 mg, Memoria 08-10 Route: PO, l 14:00: Drug form: [place] 00 DRC, Daily, Dosing Weight 134.5, kg, Start date: 08/11/15 9:00:00 CDT, Duration: 30 day, Stop date: 09/09/15 9:00:00 CDT Nuvigil 2015-0 No 250 mg, Memoria 08-10 Route: PO, l 14:00: Drug form: [place] 00 TAB, Daily, Dosing Weight 134.5, kg, Start date: 08/11/15 9:00:00 CDT, Duration: 30 day, Stop date: 09/09/15 9:00:00 CDT Abilify 2015-0 No 20 mg, Memoria 08-10 Route: PO, l 14:00: Drug form: [place] 00 TAB, Daily, Dosing Weight 134.5, kg, [...] 08-10 (Same as: l 14:00: Zetia) Dexilant 2015-0 No 60 mg, Memoria 08-10 Route: PO, l 14:00: Drug form: [place] 00 DRC, Daily, Dosing Weight 134.5, kg, [...] 12.5 MG / 14:00: Drug Form: Mikel naomi Lisinopril 00 TAB, 10 MG Oral Dosing Tablet Weight 134.5, kg, Daily, Start date: 08/11/15 9:00:00 CDT, Duration: 30 day, Stop date: 09/09/15 9:00:00 CDT Zetia 2015-0 No Notes: [facility]oria 08-10 (Same as: l 14:00: Zetia) [place] Dexilant 2015-0 No 60 mg, Memoria 08-10 Route: PO, l 14:00: Drug form: [place] 00 DRC, Daily, Dosing Weight 134.5, kg, Start date: 08/11/15 9:00:00 CDT, Duration: 30 day, Stop date: 09/09/15 9:00:00 CDT Nuvigil 2016-0 No 250 mg, Memoria 08-10 Route: PO, l 14:00: Drug form: [place] 00 TAB, Daily, Dosing Weight 134.5, kg, Start date: 08/11/15 9:00:00 CDT, Duration: 30 day, Stop date: 09/09/15 9:00:00 CDT Abilify 2015-0 No 20 mg, Memoria 08-10 Route: PO, l 14:00: Drug form: [place] 00 TAB, Daily, Dosing Weight 134.5, kg, Start date: 08/11/15 9:00:00 CDT, Duration: 30 day, Stop date: 09/09/15 9:00:00 CDT Deplin 2015-0 No 15 mg, Memoria 08-10 Route: PO, l 14:00: Drug form: [place] 00 CAP, Daily, Dosing Weight 134.5, kg, [...] 08-10 Route: PO, l 14:00: Drug form: [place] 00 DRC, Daily, Dosing Weight 134.5, kg, Start date: 08/11/15 9:00:00 CDT, Duration: 30 day, Stop date: 09/09/15 9:00:00 CDT Nuvigil 2016-0 No 250 mg, Memoria 08-10 Route: PO, l 14:00: Drug form: [place] 00 TAB, Daily, Dosing Weight 134.5, kg, Start date: 08/11/15 9:00:00 CDT, Duration: 30 day, Stop date: 09/09/15 9:00:00 CDT Abilify 2016-0 No 20 mg, Memoria 7- Route: PO, l 14:00: Drug form: [place] 00 TAB, Daily, Dosing Weight 134.5, kg, Start date: 08/11/15 9:00:00 CDT, Duration: 30 day, Stop date: 09/09/15 9:00:00 CDT Deplin 2016-0 No 15 mg, Memoria 7 Route: PO, l 14:00: Drug form: [place] [...] 6-30 Route: PO, l 22:00: Drug form: [place] 00 TAB, BID, Dosing Weight 134.5, kg, Start date: 08/10/15 17:00:00 CDT Savella 2016-0 No 50 mg, Memoria 6-30 Route: PO, l 22:00: Drug form: [place] 00 TAB, BID, Dosing Weight 134.5, kg, Start date: 08/10/15 17:00:00 CDT Savella 2016-0 No 50 mg, Memoria 6-30 Route: PO, l 22:00: Drug form: [place] 00 TAB, BID, Dosing Weight 134.5, kg, Start date: 08/10/15 17:00:00 CDT Savella 2016-0 No 50 mg, Memoria 6-30 Route: PO, l 22:00: Drug form: [place] 00 TAB, BID, Dosing Weight 134.5, kg, Start date: 08/10/15 17:00:00 CDT Savella 2016-0 No 50 mg, Memoria 08-09 Route: PO, l 22:00: Drug form: [place] 00 TAB, BID, Dosing Weight 134.5, kg, Start date: 08/10/15 17:00:00 CDT Ketorolac No 4 days Memor ia 630 l 17:00: MEDICATION [place] WASTE Product Size: 30 mg Product Wasted: _15__ mg Ketorolac No 4 days Memor ia 30 l 17:00: MEDICATION [place] WASTE Product Size: 30 mg Product Wasted: _15__ mg Ketorolac No 4 days Memor ia 630 l 17:00: MEDICATION [place] WASTE Product Size: 30 mg Product Wasted: _15__ mg Ketorolac No 4 days Memor ia 630 l 17:00: MEDICATION [place] WASTE Product Size: 30 mg Product Wasted: _15__ mg Ketorolac No 4 days Memor ia 630 l 17:00: MEDICATION [place] WASTE Product Size: 30 mg Product Wasted: _15__ mg Insulin, No Notes: Memoria Aspart, 08-09 Roll in l Human 16:29: palms of hands gently; Do not shake vigorously . (Same as: NovoLOG) "single patient use only" WASTE: F/P - Black; E - Municipal Trash Bin Stable for 28 days at room temperatur e. Expires in days from ____Date Levalbutero No Notes: SEE Memoria l -30 RT l 16:29: DOCUMENTAT ION (Same as:Xopenex ) Non-Formul george Naloxone No Notes: Memoria 08-09 Same as l 16:29: Narcan Meperidine No Notes: Memor ia 08-09 (Same as: l 16:29: Demerol) "Use Precaution [...] ne -30 Same as: l 16:29: Erik-Syneph rine Albuterol No Notes: Memori a 0.833 MG/ML -30 (Same as: l / 16:29: Duoneb) Ipratropium 00 [place] 0.167 MG/ML Inhalant Solution [DuoNeb] celecoxib Yes [...] ia 6-30 (Same as: l 16:29: Romazicon) [place] Calcium No 1,000 mL, Memor ia Chloride 6-30 Rate: 125 l 0.0014 16:29: ml/hr, [place] MEQ/ML / 00 Infuse Potassium over: 8 [...] en 6-30 Infuse l 16:29: over 15 [place] 00 minutes Do not exceed 4gm/day of acetaminop hen MEDICATION WASTE Product Size: 1000 mg Product Wasted: ___ mg Ibuprofen No Notes: Memori a 6-30 (Same as: l 16:29: Motrin) "Do Not Crush" Take with food. Insulin, No Notes: Memoria Aspart, 6-30 Roll [...] 16:29: Narcan Meperidine No Notes: Memor ia -30 (Same as: l 16:29: Demerol) "Use Precaution [...] ate 6-30 (Same as: l 16:29: Robinul) [place] 00 Phenylephri No Notes: Alonzo summer ne -30 Same as: l 16:29: Erik-Syneph rine Albuterol No Notes: Memori a 0.833 MG/ML 30 (Same as: l / 16:29: Duoneb) Ipratropium 00 [place] 0.167 MG/ML Inhalant Solution [DuoNeb] celecoxib Yes Notes: Memori a 6-30 NSAID. l 16:29: Please [place] 00 check indication . Not for seizure. (Same As: CeleBREX) 72 HR Yes Notes: Memoria Scopolamine -30 Change l 0.0139 16:29: patch [place] MG/HR 00 every 72 Transdermal hours Patch [...] 08-09 Rate: 125 l 0.0014 16:29: ml/hr, [place] MEQ/ML / 00 Infuse Potassium over: 8 [...] Dilaudid) Acetaminoph No Notes: Alonzo summer en 30 Infuse l 16:29: over 15 minutes Do not exceed 4gm/day of acetaminop hen MEDICATION WASTE Product Size: 1000 mg Product Wasted: ___ mg Ibuprofen No Notes: Memori a 6-30 (Same as: l 16:29: Motrin) "Do Not Crush" Take with food. Insulin, No Notes: Memoria Aspart, 630 Roll [...] summer ne 6-30 Concentrat l 16:29: ion: 4mg/ml Ondansetron No Notes: Alonzo summer 6-30 [...] l / 16:29: Duoneb) [place] Ipratropium 00 [place] 0.167 MG/ML Inhalant Solution [DuoNeb] celecoxib Yes [...] 6-30 Rate: 125 l 0.0014 16:29: ml/hr, [place] [...] with food. Insulin, No Notes: Memoria Aspart, 630 Roll [...] summer ne 08-09 Concentrat l 16:29: ion: [place] 00 4mg/ml Ondansetron No Notes: Alonzo summer -30 [...] Mem oria -30 MEDICATION l 16:29: WASTE [place] 00 Product Size: 0.4 mg Product Wasted: _0.2__ mg Glycopyrrol No Notes: Alonzo summer ate - (Same as: l 16:29: Robinul) [place] 00 Phenylephri No Notes: Alonzo summer ne 30 Same as: l 16:29: Erik-Syneph rine Albuterol No Notes: Memori a 0.833 MG/ML 08-09 (Same as: l / 16:29: Duoneb) Ipratropium 00 [place] 0.167 MG/ML Inhalant Solution [DuoNeb] celecoxib Yes Notes: Memori a -30 NSAID. l 16:29: Please [place] 00 check indication . Not for seizure. (Same As: CeleBREX) 72 HR Yes Notes: Memoria Scopolamine - Change l 0.0139 16:29: patch [place] MG/HR 00 every 72 Transdermal hours Patch (Same as: Transderm- Scop) Midazolam No Notes: Memori a -30 (Same as: l 16:29: Versed) MEDICATION WASTE Product Size: 2 mg Product Wasted: _1__ mg Ephedrine No Notes: Memori a -30 (Same as: l 16:29: ePHEDrine [place] 00 Sulfate) Flumazenil No Notes: Memor ia -30 [...] with food. Insulin, No Notes: Memoria Aspart, 6-30 Roll [...] summer ne 6-30 Concentrat l 16:29: ion: 4mg/ml Ondansetron No Notes: Alonzo summer 6-30 [...] as: l / 16:29: Duoneb) Ipratropium 00 [place] 0.167 MG/ML Inhalant Solution [DuoNeb] celecoxib Yes Notes: Memori a 6-30 NSAID. l 16:29: Please [place] 00 check indication . Not for seizure. [...] 6-30 (Same as: l 16:29: Romazicon) [place] Calcium No 1,000 mL, Memor ia Chloride 6-30 Rate: 125 l 0.0014 16:29: ml/hr, [place] MEQ/ML / 00 Infuse Potassium over: 8 [...] en 6-30 Infuse l 16:29: over 15 [place] 00 minutes Do not exceed 4gm/day of acetaminop hen MEDICATION WASTE Product Size: 1000 mg Product Wasted: ___ mg Ibuprofen No Notes: Memori a 6-30 (Same as: l 16:29: Motrin) "Do Not Crush" Take with food. Tramadol No Notes: Not Mem oria 6-30 to exceed l 16:24: 400mg/day. [place] 00 (Same As: Ultram) Acetaminoph No Notes: Do M emoria en 6-30 not exceed l 16:24: 4 gm/day. [place] 00 (Same as: Tylenol) Hydromorpho No Notes: Alonzo summer ne 6-30 (Same as: l 16:24: Dilaudid) [place] 00 Acetaminoph No Notes: Alonzo summer en 325 MG / 6-30 (Same as: l Hydrocodone 16:24: Wiggins Judith nn Bitartrate 00 325/5) Do 5 MG Oral not exceed Tablet 4gm/day of acetaminop hen. Tramadol No Notes: Not Mem oria 6-30 to exceed l 16:24: 400mg/day. [place] 00 (Same As: Ultram) Acetaminoph No Notes: Do M emoria en 6-30 not exceed l 16:24: 4 gm/day. [place] 00 (Same as: Tylenol) Hydromorpho No Notes: Alonzo summer ne 6-30 (Same as: l 16:24: Dilaudid) [place] 00 Acetaminoph No Notes: Alonzo summer en 325 MG / 6-30 (Same as: l Hydrocodone 16:24: Wiggins Judith nn Bitartrate 00 325/5) Do 5 MG Oral not exceed Tablet 4gm/day of acetaminop hen. Tramadol No Notes: Not Mem oria 6-30 to exceed l 16:24: 400mg/day. [place] 00 (Same As: Ultram) Acetaminoph No Notes: Do M emoria en 6-30 not exceed l 16:24: 4 gm/day. [place] 00 (Same as: Tylenol) Hydromorpho No Notes: Alonzo summer ne 6-30 (Same as: l 16:24: Dilaudid) Acetaminoph No Notes: Alonzo summer en 325 MG / 6-30 (Same as: l Hydrocodone 16:24: Wiggins Judith nn Bitartrate 00 325/5) Do 5 [...] / 6-30 (Same as: l Hydrocodone 16:24: Wiggins Judith nn Bitartrate 00 325/5) Do 5 [...] / 6-30 (Same as: l Hydrocodone 16:24: Wiggins Judith nn Bitartrate 00 325/5) Do 5 MG Oral not exceed Tablet 4gm/day of acetaminop hen. ondansetron No Route: IV, Memoria (ANES) 6-30 Drug form: l 16:11: INJ, ONCE, Stop date: 08/10/15 11:11:00 CDT ondansetron 2016-0 No Route: IV, Memoria (ANES) 6-30 Drug form: l 16:11: INJ, ONCE, Stop date: 08/10/15 11:11:00 CDT ondansetron 2016-0 No Route: IV, Memoria (ANES) 6-30 Drug form: l 16:11: INJ, ONCE, Stop date: 08/10/15 11:11:00 CDT ondansetron 2016-0 No Route: IV, Memoria (ANES) 6-30 Drug form: l 16:11: INJ, ONCE, Stop date: 08/10/15 11:11:00 CDT ondansetron 2015-0 No Route: IV, Memoria (ANES) 6-30 Drug form: l 16:11: INJ, ONCE, Stop date: 08/10/15 11:11:00 CDT phenylephri 2015-0 No Route: IV, Memoria ne (ANES) 6- Drug form: l 16:01: INJ, ONCE, Stop date: 08/10/15 11:01:00 CDT phenylephri 2016-0 No Route: IV, Memoria ne (ANES) 6- Drug form: l 16:01: INJ, ONCE, Stop date: 08/10/15 11:01:00 CDT phenylephri 2016-0 No Route: IV, Memoria ne (ANES) 6-30 Drug form: l 16:01: INJ, ONCE, Stop date: 08/10/15 11:01:00 CDT phenylephri 2016-0 No Route: IV, Memoria ne (ANES) 6-30 Drug form: l 16:01: INJ, ONCE, Stop date: 08/10/15 11:01:00 CDT phenylephri 2015-0 No Route: IV, Memoria ne (ANES) 6-30 Drug form: l 16:01: INJ, ONCE, Stop date: 08/10/15 11:01:00 CDT succinylcho 2015-0 No Route: IV, Memoria line (ANES) 6- Drug form: l 15:45: INJ, ONCE, Stop date: 08/10/15 10:45:00 CDT propofol 2016-0 No Route: IV, Mem oria (ANES) 6-30 Drug form: l 15:45: INJ, ONCE, [place] 00 Stop date: 08/10/15 10:45:00 CDT lidocaine 2016-0 No Route: IV, Me moria (ANES) 6-30 Drug form: l 15:45: INJ, ONCE, Stop date: 08/10/15 10:45:00 CDT fentaNYL 2016-0 No Route: IV, Mem oria (ANES) 6-30 Drug form: l 15:45: INJ, ONCE, [place] 00 Stop date: 08/10/15 10:45:00 CDT midazolam 2016-0 No Route: IV, Me moria (ANES) 6-30 Drug form: l 15:45: SOLN, [place] ONCE, Stop date: 08/10/15 10:45:00 CDT succinylcho 2016-0 No Route: IV, Memoria [...] 00 Stop date: 08/10/15 10:45:00 CDT midazolam 2016-0 No Route: IV, Me moria (ANES) 6-30 Drug form: l 15:45: SOLN, [place] ONCE, Stop date: 08/10/15 10:45:00 CDT succinylcho 2016-0 No Route: IV, Memoria [...] (ANES) 6-30 Drug form: l 15:45: SOLN, ONCE, Stop date: 08/10/15 10:45:00 CDT succinylcho 2016-0 No Route: IV, Memoria [...] (ANES) 6-30 Drug form: l 15:45: SOLN, ONCE, Stop date: 08/10/15 10:45:00 CDT succinylcho 2016-0 No Route: IV, Memoria line (ANES) 6-30 Drug form: l 15:45: INJ, ONCE, Stop date: 08/10/15 10:45:00 CDT propofol 2016-0 No Route: IV, Mem oria (ANES) 6-30 Drug form: l 15:45: INJ, ONCE, Stop date: 08/10/15 10:45:00 CDT lidocaine 2015-0 No Route: IV, Me moria (ANES) 6-30 Drug form: l 15:45: INJ, ONCE, Stop date: 08/10/15 10:45:00 CDT fentaNYL 2016-0 No Route: IV, Mem oria (ANES) 6-30 Drug form: l 15:45: INJ, ONCE, Stop date: 08/10/15 10:45:00 CDT midazolam 2016-0 No Route: IV, Me moria (ANES) 6-30 Drug form: l 15:45: SOLN, ONCE, Stop date: 08/10/15 10:45:00 CDT ePHEDrine 0 No Route: IV, Me moria (ANES) 6-30 Drug form: l 15:40: INJ, ONCE, Stop date: 08/10/15 10:40:00 CDT ePHEDrine 0 No Route: IV, Me moria (ANES) 6-30 Drug form: l 15:40: INJ, ONCE, Stop date: 08/10/15 10:40:00 CDT ePHEDrine 2015-0 No Route: IV, Me moria (ANES) 6-30 Drug form: l 15:40: INJ, ONCE, Stop date: 08/10/15 10:40:00 CDT ePHEDrine 2015-0 No Route: IV, Me moria (ANES) 6-30 Drug form: l 15:40: INJ, ONCE, Stop date: 08/10/15 10:40:00 CDT ePHEDrine 2015-0 No Route: IV, Me moria (ANES) 6-30 Drug form: l 15:40: INJ, ONCE, Stop date: 08/10/15 10:40:00 CDT ceFAZolin 2015-0 No Route: IV, Me moria (ANES) 6-30 Drug form: l 15:34: INJ, ONCE, Stop date: 08/10/15 10:34:00 CDT ceFAZolin 2016-0 No Route: IV, Me moria (ANES) [...] INJ (ANES) 6-30 Total l 14:51: Volume: [place] 00 1,000, Start date: 08/10/15 9:51:00 CDT, Stop date: 08/10/15 10:51:00 CDT LR 1000 mL No Route: IV, M emoria INJ (ANES) 6-30 Total l 14:51: Volume: [place] 00 1,000, Start date: 08/10/15 9:51:00 CDT, [...] Roll in l Human 13:01: palms of [place] 00 hands gently; Do not shake vigorously . (Same as: NovoLOG) "single patient use only" WASTE: F/P - Black; E - Municipal Trash Bin Stable for 28 days at room temperatur e. Expires in days from ____Date ACTUAT No Notes: Memor ia Albuterol 6-30 Same as: l 0.09 13:01: Ventolin [place] MG/ACTUAT 00 HFA WASTE: Metered Aerosol - Dose Return to [facility] Calcium No 1,000 mL, Memor ia Chloride 6-30 Rate: 25 l 0.0014 13:01: ml/hr, [place] MEQ/ML / 00 Infuse Potassium over: 40 [...] 6-30 Same as: l 0.09 13:01: Ventolin [place] MG/ACTUAT 00 HFA WASTE: Metered Aerosol - Dose Return to [facility] Calcium No 1,000 mL, Memor ia Chloride 6-30 Rate: 25 l 0.0014 13:01: ml/hr, [place] MEQ/ML / 00 Infuse Potassium over: 40 Chloride hr, Route: 0.004 IV, Dosing MEQ/ML / Weight Sodium 134.091 Chloride kg, Total 0.103 Volume: MEQ/ML / 1,000, Sodium Start Lactate date: 0.028 30/16 MEQ/ML 8:01:00 Injectable CDT, Solution Duration: 30 day, Stop date: 09/09/15 8:00:00 CDT Insulin, No Notes: Memoria Aspart, 6-30 Roll in l Human 13:01: palms of [place] 00 hands gently; Do not shake vigorously [...] 6-30 Rate: 25 l 0.0014 13:01: ml/hr, [place] MEQ/ML / 00 Infuse Potassium over: 40 [...] 6-30 Rate: 25 l 0.0014 13:01: ml/hr, [place] MEQ/ML / 00 Infuse Potassium over: 40 [...] 6-30 Same as: l 0.09 13:01: Ventolin [place] MG/ACTUAT 00 HFA WASTE: Metered Aerosol - Dose Return to [facility] Calcium No 1,000 mL, Memor ia Chloride 6-30 Rate: 25 l 0.0014 13:01: ml/hr, [place] MEQ/ML / 00 Infuse Potassium over: 40 Chloride hr, Route: 0.004 IV, Dosing MEQ/ML / Weight Sodium 134.091 Chloride kg, Total 0.103 Volume: MEQ/ML / 1,000, Sodium Start Lactate date: 0.028 08/09/16 MEQ/ML 8:01:00 Injectable CDT, Solution Duration: 30 day, Stop date: 09/09/15 8:00:00 CDT BD Normal No Notes: Memori a Saline 6-30 (Same as: l Flush 11:00: BD [place] 00 Posiflush) Ancef No Notes: Memoria 6-30 Same as: l 11:00: Ancef [place] 00 BD Normal No Notes: Memori a Saline 6-30 (Same as: l Flush 11:00: BD [place] 00 Posiflush) Ancef No Notes: Memoria 6-30 Same as: l 11:00: Ancef [place] 00 BD Normal No Notes: Memori a Saline 6-30 (Same as: l Flush 11:00: BD [place] 00 Posiflush) Ancef No Notes: Memoria 6-30 Same as: l 11:00: Ancef [place] 00 BD Normal No Notes: Memori a Saline 6-30 (Same as: l Flush 11:00: BD [place] Posiflush) Ancef No Notes: Memoria 6-30 Same as: l 11:00: Ancef [place] BD Normal No Notes: Memori a Saline 6-30 (Same as: l Flush 11:00: BD [place] Posiflush) Ancef No Notes: Memoria 6-30 Same [...] tab, PO, l Tablet 14:58: Daily, # [place] [Nuvigil] 00 30 tab, 0 Refill(s) armodafinil Yes 250 mg = 1 Memoria 250 MG Oral 6-23 tab, PO, l Tablet 14:58: Daily, # [place] [Nuvigil] 00 30 tab, 0 Refill(s) armodafinil Yes 250 mg = 1 Memoria 250 MG Oral 6-23 tab, PO, l Tablet 14:58: Daily, # [place] [Nuvigil] 00 30 tab, 0 Refill(s) armodafinil Yes 250 mg = 1 Memoria 250 MG Oral 6-23 tab, PO, l Tablet 14:58: Daily, # [place] [Nuvigil] 00 30 tab, 0 Refill(s) Suvorexant [...] tab, PO, l Tablet 14:56: Daily, 0 [place] [Zetia] 00 Refill(s) Milnacipran 2016-0 Yes 50 mg = 1 M emoria hydrochlori 6-23 tab, PO, l de 50 MG 14:56: BID, # 60 Herm archana Oral Tablet 00 tab, 3 [Savella] Refill(s) aripiprazol Yes 20 mg = 1 M emoria e 20 MG 6-23 tab, PO, l Oral Tablet 14:56: Daily, 0 He r[place] [Abilify] 00 Refill(s) ezetimibe 0 Yes 10 mg = 1 Mem oria 10 MG Oral 6-23 tab, PO, l Tablet 14:56: Daily, 0 [place] [Zetia] 00 Refill(s) Milnacipran 0 Yes 50 mg = 1 M emoria hydrochlori 6-23 tab, PO, l de 50 MG 14:56: BID, # 60 Herm archana Oral Tablet 00 tab, 3 [Savella] Refill(s) aripiprazol Yes 20 mg = 1 M emoria e 20 MG 6-23 tab, PO, l Oral Tablet 14:56: Daily, 0 [place] r[place] [Abilify] 00 Refill(s) ezetimibe 0 Yes 10 mg = 1 Mem oria 10 MG Oral 6-23 tab, PO, l Tablet 14:56: Daily, 0 [place] [Zetia] 00 Refill(s) Milnacipran 20160 Yes 50 mg = 1 M emoria hydrochlori 6-23 tab, PO, l de 50 MG 14:56: BID, # 60 Herm archana Oral Tablet 00 tab, 3 [Savella] Refill(s) aripiprazol 0 Yes 20 mg = 1 M emoria e 20 MG 6-23 tab, PO, l Oral Tablet 14:56: Daily, 0 [place] r[place] [Abilify] 00 Refill(s) ezetimibe 0 Yes 10 mg = 1 Mem oria 10 MG Oral 6-23 tab, PO, l Tablet 14:56: Daily, 0 [place] [Zetia] 00 Refill(s) Milnacipran 2015-0 Yes 50 mg = 1 M emoria hydrochlori 6-23 tab, PO, l de 50 MG 14:56: BID, # 60 Herm archana Oral Tablet 00 tab, 3 [Savella] Refill(s) aripiprazol 2016 Yes 20 mg = 1 M emoria e 20 MG 6-23 tab, PO, l Oral Tablet 14:56: Daily, 0 [place] [Abilify] 00 Refill(s) ezetimibe 2016 Yes 10 mg [...] 0 [place] r[place] [Abilify] 00 Refill(s) Tresiba 2016-0 Yes SUB-Q, Memoria FlexTouch 6-23 Daily, 0 l 14:55: Refill(s) [place] 00 0.65 ML Yes 2 mg, Memoria exenatide 6-23 SUB-Q, l 3.08 MG/ML 14:55: qWeek, # 4 H ermann Prefilled 00 ea, 0 Syringe Refill(s) [Bydureon] dexlansopra 2016- Yes 60 mg = 1 M emoria zole 60 MG 6-23 cap, PO, l Enteric 14:55: Daily, 0 Randy n Coated 00 Refill(s) Capsule [Dexilant] Tresiba 2015-0 Yes SUB-Q, Memoria FlexTouch 6-23 Daily, 0 l 14:55: Refill(s) [place] 00 0.65 ML 2015-0 Yes 2 mg, Memoria exenatide 6-23 SUB-Q, l 3.08 MG/ML 14:55: qWeek, # 4 H ermann Prefilled 00 ea, 0 Syringe Refill(s) [Bydureon] dexlansopra 2015- Yes 60 mg = 1 M emoria zole 60 MG 6-23 cap, PO, l Enteric 14:55: Daily, 0 [place] n Coated 00 Refill(s) Capsule [Dexilant] Tresiba 2015-0 Yes SUB-Q, Memoria FlexTouch 6-23 Daily, 0 l 14:55: Refill(s) [place] 00 0.65 ML 2015-0 Yes 2 mg, Memoria exenatide 6-23 SUB-Q, l 3.08 MG/ML 14:55: qWeek, # 4 H ermann Prefilled 00 ea, 0 Syringe Refill(s) [Bydureon] dexlansopra Yes 60 mg = 1 M emoria zole 60 MG 6-23 cap, PO, l Enteric 14:55: Daily, 0 [place] n Coated 00 Refill(s) Capsule [Dexilant] Tresiba 0 Yes SUB-Q, Memoria FlexTouch 6-23 [...] n Coated 00 Refill(s) Capsule [Dexilant] Tresiba 0 Yes SUB-Q, Memoria FlexTouch 6-23 Daily, 0 l 14:55: Refill(s) [place] 00 0.65 ML 2015-0 Yes 2 mg, Memoria exenatide 6-23 SUB-Q, l 3.08 MG/ML 14:55: qWeek, # 4 H ermann Prefilled 00 ea, 0 Syringe Refill(s) [Bydureon] dexlansopra 0 Yes 60 mg = 1 M emoria zole 60 MG 6-23 cap, PO, l Enteric 14:55: Daily, 0 Randy n Coated 00 Refill(s) Capsule [Dexilant] golimumab 20160 Yes IV, q4wk, Mem oria [...] Her brito Tablet 00 Refill(s) [VESICARE] golimumab Yes IV, q4wk, Mem oria 12.5 [...] Her brito Tablet 00 Refill(s) [VESICARE] golimumab Yes IV, q4wk, Mem oria 12.5 [...] Her brito Tablet 00 Refill(s) [VESICARE] golimumab Yes IV, q4wk, Mem oria 12.5 MG/ML 6-23 0 l Injectable 14:54: Refill(s) He rmann Solution 00 [Simponi Aria] Hydrochloro Yes 1 tab, PO, Memoria thiazide 6-23 Daily, 0 l 12.5 MG / 14:54: Refill(s) Her brito Lisinopril 00 10 MG Oral Tablet solifenacin 20160 Yes 10 mg = 1 M emoria succinate 6-23 tab, PO, l 10 MG Oral 14:54: Daily, 0 Her brito Tablet 00 Refill(s) [VESICARE] golimumab 2016-0 Yes IV, q4wk, Mem oria 12.5 MG/ML 6-23 0 l Injectable 14:54: Refill(s) He rmann Solution 00 [Simponi Aria] Hydrochloro 2015-0 Yes 1 tab, PO, Memoria thiazide 6-23 Daily, 0 l 12.5 MG / 14:54: Refill(s) Her brito Lisinopril 00 10 MG Oral Tablet solifenacin 0 Yes 10 mg = 1 M emoria succinate 6-23 tab, PO, l 10 MG Oral 14:54: Daily, 0 Her brito Tablet 00 Refill(s) [VESICARE] pilocarpine Yes 7.5 mg = 1 Memoria 7.5 mg oral 6-23 tab, PO, l tablet 14:53: TID, # 90 Randy n 00 tab, 0 Refill(s) cyclobenzap 2015-0 Yes 10 mg = 1 M emoria rine 10 mg 6-23 tab, PO, l oral tablet 14:53: TID, PRN He r[place] 00 for spasms, # 30 tab, 0 Refill(s) Hydroxychlo 2015-0 Yes 200 mg, Mem oria roquine 6-23 PO, Daily, l 14:53: 0 [place] 00 Refill(s) pilocarpine 2015-0 Yes 7.5 mg = 1 Memoria 7.5 mg oral 6-23 tab, PO, l tablet 14:53: TID, # 90 Randy n 00 tab, 0 Refill(s) cyclobenzap 2015-0 Yes 10 mg = 1 M emoria rine 10 mg 6-23 tab, PO, l oral tablet 14:53: TID, PRN He r[place] 00 for spasms, # 30 tab, 0 Refill(s) Hydroxychlo 2015-0 Yes 200 mg, Mem oria roquine 6-23 PO, Daily, l 14:53: 0 [place] 00 Refill(s) pilocarpine 2015-0 Yes 7.5 mg = 1 Memoria 7.5 mg oral 6-23 tab, PO, l tablet 14:53: TID, # 90 Randy n 00 tab, 0 Refill(s) cyclobenzap 2016-0 Yes 10 mg = 1 M emoria rine 10 mg 6-23 tab, PO, l oral tablet 14:53: TID, PRN He r[place] 00 for spasms, # 30 tab, 0 Refill(s) Hydroxychlo 2016-0 Yes 200 mg, Mem oria roquine 6-23 PO, Daily, l 14:53: 0 [place] 00 Refill(s) pilocarpine 2016-0 Yes 7.5 mg = 1 Memoria 7.5 mg oral 6-23 tab, PO, l tablet 14:53: TID, # 90 Randy n 00 tab, 0 Refill(s) cyclobenzap 2016-0 Yes 10 mg = 1 M emoria rine 10 mg 6-23 tab, PO, l oral tablet 14:53: TID, PRN He r[place] 00 for spasms, # 30 tab, 0 Refill(s) Hydroxychlo 2016-0 Yes 200 mg, Mem oria roquine 6-23 PO, Daily, l 14:53: 0 [place] 00 Refill(s) Hydroxychlo 2016-0 Yes 200 mg, Mem oria roquine 6-23 PO, Daily, l 14:53: 0 [place] 00 Refill(s) pilocarpine 2016-0 Yes 7.5 mg = 1 Memoria 7.5 mg oral 6-23 tab, PO, l tablet 14:53: TID, # 90 Randy n 00 tab, 0 Refill(s) cyclobenzap 2016-0 Yes 10 mg = 1 M emoria rine 10 mg 6-23 tab, PO, l oral tablet 14:53: TID, PRN [place] r[place] 00 for spasms, # 30 tab, 0 Refill(s) celecoxib 2016-0 Yes 200 mg = 1 Me moria 200 MG Oral 6-23 cap, PO, l Capsule 14:52: BID, 0 [place] [Celebrex] 00 Refill(s) Methotrexat 2016-0 Yes 0 Memori a e 6-23 Refill(s) l 14:52: [place] 00 Methotrexat 2016-0 Yes INTRATHECA Memoria e Sodium, 6-23 L, ONCE, 0 l Preservativ 14:52: Refill(s) H ermann e Free 25 00 mg/mL injectable solution celecoxib 20160 Yes 200 mg = 1 Me moria 200 MG Oral 6-23 cap, PO, l Capsule 14:52: BID, 0 [place] [Celebrex] 00 Refill(s) Methotrexat 20160 Yes 0 Memori a e 6-23 Refill(s) l 14:52: [place] 00 Methotrexat 20160 Yes INTRATHECA Memoria e Sodium, 6-23 L, ONCE, 0 l Preservativ 14:52: Refill(s) H ermann e Free 25 00 mg/mL injectable solution celecoxib 20160 Yes 200 mg = 1 Me moria 200 MG Oral 6-23 cap, PO, l Capsule 14:52: BID, 0 [place] [Celebrex] 00 Refill(s) Methotrexat 20160 Yes 0 Memori a e 6-23 Refill(s) l 14:52: [place] 00 Methotrexat 20160 Yes INTRATHECA Memoria e Sodium, 6-23 L, ONCE, 0 l Preservativ 14:52: Refill(s) H ermann e Free 25 00 mg/mL injectable solution celecoxib 2016 Yes 200 mg = 1 Me moria 200 MG Oral 6-23 cap, PO, l Capsule 14:52: BID, 0 [place] [Celebrex] 00 Refill(s) Methotrexat 20160 Yes 0 Memori a e 6-23 Refill(s) l 14:52: [place] 00 Methotrexat 20160 Yes INTRATHECA Memoria e Sodium, 6-23 L, ONCE, 0 l Preservativ 14:52: Refill(s) H ermann e Free 25 00 mg/mL injectable solution celecoxib 20160 Yes 200 mg = 1 Me moria 200 MG Oral 6-23 cap, PO, l Capsule 14:52: BID, 0 [place] [Celebrex] 00 Refill(s) Methotrexat 20160 Yes 0 Memori a e 6-23 Refill(s) l 14:52: [place] 00 Methotrexat 20160 Yes INTRATHECA Memoria e Sodium, 6-23 L, ONCE, 0 l Preservativ 14:52: Refill(s) H ermann e Free 25 00 mg/mL injectable solution Folic Acid Yes 1 mg = 1 Mem oria 1 MG Oral 6-23 tab, PO, l Tablet 14:51: Daily, 0 [place] 00 Refill(s) Folic Acid Yes 1 mg = 1 Mem oria 1 MG Oral 6-23 tab, PO, l Tablet 14:51: Daily, 0 [place] 00 Refill(s) Folic Acid Yes 1 mg = 1 Mem oria 1 MG Oral 6-23 tab, PO, l Tablet 14:51: Daily, 0 [place] 00 Refill(s) Folic Acid Yes 1 mg = 1 Mem oria 1 MG Oral 6-23 tab, PO, l Tablet 14:51: Daily, 0 [place] 00 Refill(s) Folic Acid Yes 1 mg = 1 Mem oria 1 MG Oral 6-23 tab, PO, l Tablet 14:51: Daily, 0 [place] 00 Refill(s) Celebrex Celebrex Yes Luciano 1 capsule Common Travis with food [facility] Cyclobenzap Cyclobenzap Yes Luciano 1 tablet Common rine HCl rine HCl [place] as needed S pirit [facility] Zestoretic Zestoretic Yes Luciano [address] [facility] Abilify Abilify Yes Luciano 1 tablet Com mon [facility] Restasis Restasis Yes Luciano 1 drop Com mon Travis into [facility] affected [facility] eye [facility] Humalog Humalog Yes Luciano as Common Travis directed [facility] Plaquenil Plaquenil Yes Luciano 1 tablet Common [place] with food Spirit or milk [facility] Iron Iron Yes Luciano [address] [facility] Leflunomide Leflunomide Yes Luciano [address] [facility] Vistaril Vistaril Yes Luciano 1 capsule Common [place] as needed [facility] Bydureon Bydureon Yes Luciano not Commo n Travis defined [facility] ProAir HFA ProAir HFA Yes Luciano 2 puffs as Common Travis needed [facility] Pilocarpine Pilocarpine Yes Luciano 1 tablet Common HCl HCl Travis [facility] Savella Savella Yes Luciano 2 tablets Co mmon [facility] Guaifenesin Guaifenesin Yes Luciano 10 ml as Common -Codeine -Codeine Travis needed [facility] Atorvastati Atorvastati Yes Luciano 1 tablet Common n Calcium n Calcium Travis [facility] Omeprazole Omeprazole Yes Luciano [address] [facility] Breo Breo Yes Luciano 1 puff Common Ellipta Ellipta [facility] Trazodone Trazodone Yes Luciano 1 tablet Common HCl HCl Travis at bedtime [facility] Toujeo Toujeo Yes Luciano not Common SoloStar SoloStar Travis defined Spi [facility] Tolterodine Tolterodine Yes Luciano 1 capsule Common Tartrate ER Tartrate ER [facility] Hemocyte Hemocyte Yes Luciano 1 capsule Common Plus Plus [facility] Folic Acid Folic Acid Yes Luciano [address] [facility] MetFORMIN MetFORMIN Yes Luciano 1 tablet Common HCl ER HCl ER Travis at night [facility] Metformin Metformin Yes Luciano 1 tablet Common HCl HCl Travis with a Spirit meal in - [facility] the [facility] Saphris Saphris Yes Lucaino 1 tablet Com mon [place] under the Spirit tongue and - [facility] allow to [facility] Paxil Paxil Yes Luciano 1 tablet Common Travis in the [facility] Colace Colace Yes Luciano 1 capsule Comm on Travis as needed [facility] Leflunomide Leflunomide No 1{table QD Leflunomid 20 [...] 100-10 100-10 d} 100-10 MG/5ML MG/5ML MG/5ML Junior Junior No Junior metFORMIN metFORMIN No QD metFORMIN HCl 1000 [...] 100-10 100-10 d} 100-10 MG/5ML MG/5ML MG/5ML Junior Junior No Junior metFORMIN metFORMIN No QD metFORMIN HCl 1000 [...] 100-10 100-10 d} 100-10 MG/5ML MG/5ML MG/5ML Junior Junior No Junior metFORMIN metFORMIN No QD metFORMIN HCl 1000 [...] HCl ER 500 MG MG MG Toujeo Tobarbo No BID Toujeo SoloStar SoloStar SoloStar 300u/ml [...] anatoliy HCl MG MG eded} 10 MG Hemocyte Hemocyte No 1{capsu QD Hemocyte [...] anatoliy HCl MG MG eded} 10 MG Hemocyte Hemocyte No 1{capsu QD Hemocyte [...] anatoliy HCl MG MG eded} 10 MG Tresiba Tresiba No QD Tresiba FlexTouch FlexTouch FlexTouch 200 UNIT/ML 200 UNIT/ML 200 UNIT/ML CeleBREX CeleBREX No 1{capsu QD CeleBREX 200 MG 200 MG le_with 200 MG _food} Cyclobenzap Cyclobenzap No 1{table TID Cyclobenza rine HCl 10 rine HCl 10 t_as_ne anatoliy HCl MG MG eded} 10 MG Ozempic Ozempic No Ozempic (0.25 or (0.25 or (0.25 or 0.5 0.5 0.5 MG/DOSE) 2 MG/DOSE) 2 MG/DOSE) 2 MG/1.5ML MG/1.5ML MG/1.5ML Accu-Chek Accu-Chek No Accu-Chek Guide - Guide - Guide - Folic Acid Folic Acid No 1{table QD Folic Acid 1 MG 1 MG t} 1 MG Plaquenil Plaquenil No 1{table QD Plaquenil 200 MG 200 MG t_with_ 200 MG food_or _milk} Tolterodine Tolterodine No 1{capsu QD Tolterodin Tartrate ER Tartrate ER le} e Tartrate 4 MG 4 MG ER 4 MG Amitriptyli Amitriptyli No 1{table QD Amitriptyl ne HCl 25 ne HCl 25 t_at_be ine HCl 25 MG MG dtime} MG Lipoic Acid Lipoic Acid No Lipoic 150 MG 150 MG Acid 150 MG Pilocarpine Pilocarpine No 1{table TID Pilocarpin HCl 7.5 MG HCl 7.5 MG t} e HCl 7.5 MG Iron 325 Iron 325 No 1{table QD Iron 325 (65 Fe) MG (65 Fe) MG t} (65 Fe) MG Atorvastati Atorvastati No 1{table QD Atorvastat n Calcium n Calcium t} in Calcium 10 MG 10 MG 10 MG Leflunomide Leflunomide No 1{table QD Leflunomid 20 MG 20 MG t} e 20 MG Omeprazole Omeprazole No 1{capsu QD Omeprazole 40 MG 40 MG le} 40 MG Gabapentin Gabapentin No 2{table BID Gabapentin 600 MG 600 MG ts} 600 MG Hemocyte Hemocyte No 1{capsu QD Hemocyte Plus 106-1 Plus 106-1 le} Plus 106-1 MG MG MG Ozempic Ozempic No Ozempic (0.25 or (0.25 or (0.25 or 0.5 0.5 0.5 MG/DOSE) 2 MG/DOSE) 2 MG/DOSE) 2 MG/1.5ML MG/1.5ML MG/1.5ML Iron 325 Iron 325 No 1{table QD Iron 325 (65 Fe) MG (65 Fe) MG t} (65 Fe) MG Amitriptyli Amitriptyli No 1{table QD Amitriptyl ne HCl 25 ne HCl 25 t_at_be ine HCl 25 MG MG dtime} MG Pilocarpine Pilocarpine No 1{table TID Pilocarpin HCl 7.5 MG HCl 7.5 MG t} e HCl 7.5 MG Gabapentin Gabapentin No 2{table BID Gabapentin 600 MG 600 MG ts} 600 MG Folic Acid Folic Acid No 1{table QD Folic Acid 1 MG 1 MG t} 1 MG Lipoic Acid Lipoic Acid No Lipoic 150 MG 150 MG Acid 150 MG Hemocyte Hemocyte No 1{capsu QD Hemocyte Plus 106-1 Plus 106-1 le} Plus 106-1 MG MG MG Tolterodine Tolterodine No 1{capsu QD Tolterodin Tartrate ER Tartrate ER le} e Tartrate 4 MG 4 MG ER 4 MG Omeprazole Omeprazole No 1{capsu QD Omeprazole 40 MG 40 MG le} 40 MG Cyclobenzap Cyclobenzap No 1{table TID Cyclobenza rine HCl 10 rine HCl 10 t_as_ne anatoliy HCl MG MG eded} 10 MG CeleBREX CeleBREX No 1{capsu QD CeleBREX 200 MG 200 MG le_with 200 MG _food} Azithromyci Azithromyci No QD Azithromyc n 250 MG n 250 MG in 250 MG Accu-Chek Accu-Chek No Accu-Chek Guide - Guide - Guide - Leflunomide Leflunomide No 1{table QD Leflunomid 20 MG 20 MG t} e 20 MG Plaquenil Plaquenil No 1{table QD Plaquenil 200 MG 200 MG t_with_ 200 MG food_or _milk} Benzonatate Benzonatate No 1{capsu TID Benzonatat 200 MG 200 MG le} e 200 MG Tresiba Tresiba No QD Tresiba FlexTouch FlexTouch FlexTouch 200 UNIT/ML 200 UNIT/ML 200 UNIT/ML Atorvastati Atorvastati No 1{table QD Atorvastat n Calcium n Calcium t} in Calcium 10 MG 10 MG 10 MG Ozempic Ozempic No Ozempic (0.25 or (0.25 or (0.25 or 0.5 0.5 0.5 MG/DOSE) 2 MG/DOSE) 2 MG/DOSE) 2 MG/1.5ML MG/1.5ML MG/1.5ML Iron 325 Iron 325 No 1{table QD Iron 325 (65 Fe) MG (65 Fe) MG t} (65 Fe) MG Amitriptyli Amitriptyli No 1{table QD Amitriptyl ne HCl 25 ne HCl 25 t_at_be ine HCl 25 MG MG dtime} MG Pilocarpine Pilocarpine No 1{table TID Pilocarpin HCl 7.5 MG HCl 7.5 MG t} e HCl 7.5 MG Gabapentin Gabapentin No 2{table BID Gabapentin 600 MG 600 MG ts} 600 MG Folic Acid Folic Acid No 1{table QD Folic Acid 1 MG 1 MG t} 1 MG Lipoic Acid Lipoic Acid No Lipoic 150 MG 150 MG Acid 150 MG Hemocyte Hemocyte No 1{capsu QD Hemocyte Plus 106-1 Plus 106-1 le} Plus 106-1 MG MG MG Tolterodine Tolterodine No 1{capsu QD Tolterodin Tartrate ER Tartrate ER le} e Tartrate 4 MG 4 MG ER 4 MG Omeprazole Omeprazole No 1{capsu QD Omeprazole 40 MG 40 MG le} 40 MG Cyclobenzap Cyclobenzap No 1{table TID Cyclobenza rine HCl 10 rine HCl 10 t_as_ne anatoliy HCl MG MG eded} 10 MG CeleBREX CeleBREX No 1{capsu QD CeleBREX 200 MG 200 MG le_with 200 MG _food} Azithromyci Azithromyci No QD Azithromyc n 250 MG n 250 MG in 250 MG Accu-Chek Accu-Chek No Accu-Chek Guide - Guide - Guide - Leflunomide Leflunomide No 1{table QD Leflunomid 20 MG 20 MG t} e 20 MG Plaquenil Plaquenil No 1{table QD Plaquenil 200 MG 200 MG t_with_ 200 MG food_or _milk} Benzonatate Benzonatate No 1{capsu TID Benzonatat 200 MG 200 MG le} e 200 MG Tresiba Tresiba No QD Tresiba FlexTouch FlexTouch FlexTouch 200 UNIT/ML 200 UNIT/ML 200 UNIT/ML Atorvastati Atorvastati No 1{table QD Atorvastat n Calcium n Calcium t} in Calcium 10 MG 10 MG 10 MG Gabapentin Gabapentin No 2{table BID Gabapentin 600 MG 600 MG ts} 600 MG Tresiba Tresiba No QD Tresiba FlexTouch FlexTouch FlexTouch 200 UNIT/ML 200 UNIT/ML 200 UNIT/ML Cyclobenzap Cyclobenzap No 1{table TID Cyclobenza rine HCl 10 rine HCl 10 t_as_ne anatoliy HCl MG MG eded} 10 MG Tolterodine Tolterodine No 1{capsu QD Tolterodin Tartrate ER Tartrate ER le} e Tartrate 4 MG 4 MG ER 4 MG Ozempic Ozempic No Ozempic (0.25 or (0.25 or (0.25 or 0.5 0.5 0.5 MG/DOSE) 2 MG/DOSE) 2 MG/DOSE) 2 MG/1.5ML MG/1.5ML MG/1.5ML Benzonatate Benzonatate No 1{capsu TID Benzonatat 200 MG 200 MG le} e 200 MG Accu-Chek Accu-Chek No Accu-Chek Guide - Guide - Guide - Folic Acid Folic Acid No 1{table QD Folic Acid 1 MG 1 MG t} 1 MG Azithromyci Azithromyci No QD Azithromyc n 250 MG n 250 MG in 250 MG Pilocarpine Pilocarpine No 1{table TID Pilocarpin HCl 7.5 MG HCl 7.5 MG t} e HCl 7.5 MG Amitriptyli Amitriptyli No 1{table QD Amitriptyl ne HCl 25 ne HCl 25 t_at_be ine HCl 25 MG MG dtime} MG Hemocyte Hemocyte No 1{capsu QD Hemocyte Plus 106-1 Plus 106-1 le} Plus 106-1 MG MG MG Omeprazole Omeprazole No 1{capsu QD Omeprazole 40 MG 40 MG le} 40 MG Iron 325 Iron 325 No 1{table QD Iron 325 (65 Fe) MG (65 Fe) MG t} (65 Fe) MG Lipoic Acid Lipoic Acid No Lipoic 150 MG 150 MG Acid 150 MG CeleBREX CeleBREX No 1{capsu QD CeleBREX 200 MG 200 MG le_with 200 MG _food} Plaquenil Plaquenil No 1{table QD Plaquenil 200 MG 200 MG t_with_ 200 MG food_or _milk} Atorvastati Atorvastati No 1{table QD Atorvastat n Calcium n Calcium t} in Calcium 10 MG 10 MG 10 MG Leflunomide Leflunomide No 1{table QD Leflunomid 20 MG 20 MG t} e 20 MG Ozempic Ozempic No Ozempic (0.25 or (0.25 or (0.25 or 0.5 0.5 0.5 MG/DOSE) 2 MG/DOSE) 2 MG/DOSE) 2 MG/1.5ML MG/1.5ML MG/1.5ML Gabapentin Gabapentin No 2{table BID Gabapentin 600 MG 600 MG ts} 600 MG Accu-Chek Accu-Chek No Accu-Chek Guide - Guide - Guide - Hemocyte Hemocyte No 1{capsu QD Hemocyte Plus 106-1 Plus 106-1 le} Plus 106-1 MG MG MG Cyclobenzap Cyclobenzap No 1{table TID Cyclobenza rine HCl 10 rine HCl 10 t_as_ne anatoliy HCl MG MG eded} 10 MG Benzonatate Benzonatate No 1{capsu TID Benzonatat 200 MG 200 MG le} e 200 MG CeleBREX CeleBREX No 1{capsu QD CeleBREX 200 MG 200 MG le_with 200 MG _food} Folic Acid Folic Acid No 1{table QD Folic Acid 1 MG 1 MG t} 1 MG Azithromyci Azithromyci No QD Azithromyc n 250 MG n 250 MG in 250 MG Pilocarpine Pilocarpine No 1{table TID Pilocarpin HCl 7.5 MG HCl 7.5 MG t} e HCl 7.5 MG Lipoic Acid Lipoic Acid No Lipoic 150 MG 150 MG Acid 150 MG Amitriptyli Amitriptyli No 1{table QD Amitriptyl ne HCl 25 ne HCl 25 t_at_be ine HCl 25 MG MG dtime} MG Atorvastati Atorvastati No 1{table QD Atorvastat n Calcium n Calcium t} in Calcium 10 MG 10 MG 10 MG Leflunomide Leflunomide No 1{table QD Leflunomid 20 MG 20 MG t} e 20 MG Tolterodine Tolterodine No 1{capsu QD Tolterodin Tartrate ER Tartrate ER le} e Tartrate 4 MG 4 MG ER 4 MG Omeprazole Omeprazole No 1{capsu QD Omeprazole 40 MG 40 MG le} 40 MG Plaquenil Plaquenil No 1{table QD Plaquenil 200 MG 200 MG t_with_ 200 MG food_or _milk} Iron 325 Iron 325 No 1{table QD Iron 325 (65 Fe) MG (65 Fe) MG t} (65 Fe) MG Tresiba Tresiba No QD Tresiba FlexTouch FlexTouch FlexTouch 200 UNIT/ML 200 UNIT/ML 200 UNIT/ML ProAir HFA ProAir HFA No 2{puffs QID [...] QD Abilify 20 MG MG t} MG Junior Junior No Junior Plaquenil Plaquenil No 1{table QD Plaquenil 200 [...] QD Abilify 20 MG MG t} MG Junior Junior No Junior Plaquenil Plaquenil No 1{table QD Plaquenil 200 [...] QD Abilify 20 MG MG t} MG Junior Junior No Junior Plaquenil Plaquenil No 1{table QD Plaquenil 200 [...] QD Abilify 20 MG MG t} MG Junior Junior No Junior Plaquenil Plaquenil No 1{table QD Plaquenil 200 [...] 100 No HumaLOG UNIT/ML UNIT/ML 100 UNIT/ML Junior Junior No Junior Breo Breo No 1{puff} QD Breo Ellipta [...] 100 No HumaLOG UNIT/ML UNIT/ML 100 UNIT/ML Junior Junior No Junior Breo Breo No 1{puff} QD Breo Ellipta [...] 100 No HumaLOG UNIT/ML UNIT/ML 100 UNIT/ML Junior Junior No Junior Breo Breo No 1{puff} QD Breo Ellipta [...] 100 No HumaLOG UNIT/ML UNIT/ML 100 UNIT/ML Junior Junior No Junior Breo Breo No 1{puff} QD Breo Ellipta [...] 200 MG t_with_ 200 MG food_or _milk} Junior Junior No Junior Omeprazole Omeprazole No 1{capsu QD Omeprazole 40 [...] Zestoretic 20-12.5 MG 20-12.5 MG 20-12.5 MG Junior Junior No Junior Iron 325 Iron 325 No 1{table QD [...] Zestoretic 20-12.5 MG 20-12.5 MG 20-12.5 MG Junior Junior No Junior Iron 325 Iron 325 No 1{table QD [...] t_under MG _the_to ngue_an d_allow _to_dis solve} Junior Junior No Junior Zoloft 50 Zoloft 50 No 1{table QD [...] Ellipta 200-25 200-25 200-25 MCG/INH MCG/INH MCG/INH Junior Junior No Junior metFORMIN metFORMIN No QD metFORMIN HCl ER [...] 100-10 100-10 d} 100-10 MG/5ML MG/5ML MG/5ML Junior Junior No Junior Folic Acid Folic Acid No 1{table QD [...] 100-10 100-10 d} 100-10 MG/5ML MG/5ML MG/5ML Junior Junior No Junior Folic Acid Folic Acid No 1{table QD [...] Completed [facility] (Triamcinolone) (Triamcinolone) 14:42:00 - [facility] 2019-11-02 Completed [facility] (Triamcinolone) (Triamcinolone) 14:42:00 - I [facility] 2019-11-02 Completed [facility] (Triamcinolone) (Triamcinolone) 14:42:00 - I [facility] 2019-11-02 Completed [facility] (Triamcinolone) (Triamcinolone) 14:42:00 - I [facility] 2019-11-02 Completed [facility] (Triamcinolone) (Triamcinolone) 14:42:00 - I [facility] 2019-11-02 Completed [facility] (Triamcinolone) (Triamcinolone) 14:42:00 - I [facility] 2019-11-02 Completed [facility] (Triamcinolone) (Triamcinolone) 14:42:00 - [facility] 2019-11-02 Completed [facility] (Triamcinolone) (Triamcinolone) 14:42:00 - [facility] 2019-11-02 Completed [facility] (Triamcinolone) (Triamcinolone) 14:42:00 - [facility] Vital Signs Vital Name Observation Time Observation Value Comments Source height 2022-02-08 71 [in_i] [facility] - 15:20:00 [facility] weight 2022-02-08 240 [lb_av] [facility] - 15:20:00 [facility] bmi 2022-02-08 33.47 kg/m2 [facility] - 15:20:00 [facility] height 2022-01-16 71 [in_i] [facility] - 10:40:00 [facility] weight 2022-01-16 239.6 [lb_av] [facility] - 10:40:00 [facility] temperature 2022-01-16 97.5 [degF] [facility] - 10:40:00 [facility] bmi 2022-01-16 33.41 kg/m2 [facility] - 10:40:00 [facility] oximetry 2022-01-16 97 % [facility] - 10:40:00 [facility] respiratory rate 2022-01-16 17 /min [facility] - 10:40[facility]00 [facility] blood pressure 2022-01-16 121 mm[Hg] [facility] - systolic 10:40:00 [facility] blood pressure 2022-01-16 68 mm[Hg] [facility] - diastolic 10:40:00 [facility] Systolic blood 2021-10-31 126 mm[Hg] [facility] pressure 19:16:00 Diastolic blood 2021-10-31 84 mm[Hg] [facility] pressure 19:16:00 Body height 2021-10-31 180.3 cm [facility] 19:16:00 Body weight 2021-10-31 112.038 kg [facility] 19:16:00 BMI 2021-10-31 34.45 kg/m2 [facility] 19:16:00 Systolic blood 2021-10-24 118 mm[Hg] [facility] pressure 18:53:00 Diastolic blood 2021-10-24 68 mm[Hg] [facility] pressure 18:53:00 Body temperature 2021-10-24 36.44 Teresa [facility] 18:53:00 Body height 2021-10-24 180.3 cm [facility] 18:53:00 Body weight 2021-10-24 112.401 kg [facility] 18:53:00 BMI 2021-10-24 34.56 kg/m2 [facility] 18:53:00 height 2021-10-17 71 [in_i] [facility] - 11:20:00 [facility] weight 2021-10-17 230 [lb_av] [facility] - 11:20:00 [facility] temperature 2021-10-17 97.6 [degF] [facility] - 11:20:00 [facility] bmi 2021-10-17 32.07 kg/m2 [facility] - 11:20:00 [facility] oximetry 2021-10-17 97 % [facility] - 11:20:00 [facility] respiratory rate 2021-10-17 16 /min [facility] - 11:20:00 [facility] blood pressure 2021-10-17 132 mm[Hg] [facility] - systolic 11:20:00 [facility] blood pressure 2021-10-17 76 mm[Hg] [facility] - diastolic 11:20:00 [facility] Systolic blood 2021-10-11 135 mm[Hg] [facility] pressure 13:08:00 [facility] Diastolic blood 2021-10-11 81 mm[Hg] [facility] 13:08:00 [facility] Heart rate 2021-10-11 78 /min [facility] 13:08:00 [facility] Body height 2021-10-11 180.3 cm [facility] 13:08:00 [facility] Body weight 2021-10-11 104.101 kg [facility] 13:08:00 [facility] BMI 2021-10-11 32.01 kg/m2 [facility] 13:08:00 [facility] Oxygen saturation 2021-10-11 97 /min [facility] Arterial blood 13:08:00 [facility] by Pulse oximetry [place] height 2021-07-18 71.5 [in_i] [facility] - 10:40:00 [facility] weight 2021-07-18 228.9 [lb_av] [facility] - 10:40:00 [facility] temperature 2021-07-18 98.1 [degF] [facility] - 10:40:00 [facility] bmi 2021-07-18 31.48 kg/m2 [facility] - 10:40:00 [facility] oximetry 2021-07-18 95 % [facility] - 10:40:00 [facility] respiratory rate 2021-07-18 17 /min [facility] - 10:40:00 [facility] blood pressure 2021-07-18 135 mm[Hg] [facility] - systolic 10:40:00 [facility] blood pressure 2021-07-18 76 mm[Hg] [facility] - diastolic 10:40:00 [facility] height 2021-04-03 71.5 [in_i] [facility] - 15:00:00 [facility] weight 2021-04-03 234 [lb_av] [facility] - 15:00:00 [facility] temperature 2021-04-03 96.9 [degF] [facility] - 15:00:00 [facility] bmi 2021-04-03 32.18 kg/m2 [facility] - 15:00:00 [facility] oximetry 2021-04-03 98 % [facility] - 15:00:00 [facility] respiratory rate 2021-04-03 17 /min [facility] - 15:00:00 [facility] blood pressure 2021-04-03 138 mm[Hg] [facility] - systolic 15:00:00 [facility] blood pressure 2021-04-03 75 mm[Hg] [facility] - diastolic 15:00:00 [facility] Systolic blood 2021-03-26 152 mm[Hg] [facility] 18:40:00 [facility] Diastolic blood 2021-03-26 58 mm[Hg] [facility] 18:40:00 [facility] Heart rate 2021-03-26 95 /min [facility] 18:40:00 [facility] Body temperature 2021-03-26 37.22 Teresa [facility] 18:40:00 [facility] Respiratory rate 2021-03-26 18 /min [facility] 18:40:00 [facility] Body weight 2021-03-26 106.595 kg [facility] 18:40:00 [facility] BMI 2021-03-26 32.78 kg/m2 [facility] 18:40:00 [facility] Oxygen saturation 2021-03-26 100 /min [facility] Arterial blood 18:40:00 [facility] Pulse oximetry [place] height 2021-03-05 71.5 [in_i] [facility] - 09:50:00 [facility] weight 2021-03-05 239.4 [lb_av] [facility] - 09:50:00 [facility] temperature 2021-03-05 98.1 [degF] [facility] - 09:50:00 [facility] bmi 2021-03-05 32.92 kg/m2 [facility] - 09:50:00 [facility] oximetry 2021-03-05 98 % [facility] - 09:50:00 [facility] respiratory rate 2021-03-05 18 /min [facility] - 09:50:00 [facility] blood pressure 2021-03-05 136 mm[Hg] [facility] - systolic 09:50:00 [facility] blood pressure 2021-03-05 64 mm[Hg] [facility] - diastolic 09:50:00 [facility] height 2021-03-05 71.5 [in_i] [facility] - 09:50:00 [facility] weight 2021-03-05 239.4 [lb_av] [facility] - 09:50:00 [facility] temperature 2021-03-05 98.1 [degF] [facility] - 09:50:00 [facility] bmi 2021-03-05 32.92 kg/m2 [facility] - 09:50:00 [facility] oximetry 2021-03-05 98 % [facility] - 09:50:00 [facility] blood pressure 2021-03-05 136 mm[Hg] [facility] - systolic 09:50:00 [facility] blood pressure 2021-03-05 64 mm[Hg] [facility] - diastolic 09:50:00 [facility] height 2020-12-07 71.5 [in_i] [facility] - 10:10:00 [facility] weight 2020-12-07 250.3 [lb_av] [facility] - 10:10:00 [facility] temperature 2020-12-07 98.0 [degF] [facility] - 10:10:00 [facility] bmi 2020-12-07 34.42 kg/m2 [facility] - 10:10:00 [facility] oximetry 2020-12-07 98 % [facility] - 10:10:00 [facility] respiratory rate 2020-12-07 17 /min [facility] - 10:10:00 [facility] blood pressure 2020-12-07 135 mm[Hg] [facility] - systolic 10:10:00 [facility] blood pressure 2020-12-07 70 mm[Hg] [facility] - diastolic 10:10:00 [facility] Systolic blood 2020-12-03 127 mm[Hg] [facility] 19:16:00 [facility] Diastolic blood 2020-12-03 84 mm[Hg] [facility] 19:16:00 [facility] Heart rate 2020-12-03 85 /min [facility] 19:16:00 [facility] Body temperature 2020-12-03 36.5 Teresa [facility] 19:16:00 [facility] Respiratory rate 2020-12-03 16 /min [facility] 19:16:00 [facility] Body height 2020-12-03 180.3 cm [facility] 19:16:00 [facility] Body weight 2020-12-03 113.399 kg [facility] 19:16:00 [facility] BMI 2020-12-03 34.87 kg/m2 [facility] 19:16:00 [facility] Oxygen saturation 2020-12-03 97 /min [facility] in Arterial blood 19:16:00 [facility] by Pulse oximetry [place] height 2020-10-26 71.5 [in_i] [facility] - 10:10:00 [facility] weight 2020-10-26 290 [lb_av] [facility] - 10:10:00 [facility] temperature 2020-10-26 98 [degF] [facility] - 10:10:00 [facility] bmi 2020-10-26 39.88 kg/m2 [facility] - 10:10:00 [facility] blood pressure 2020-10-26 131 mm[Hg] [facility] - systolic 10:10:00 [facility] blood pressure 2020-10-26 70 mm[Hg] [facility] - diastolic 10:10:00 [facility] Systolic blood 2020-06-21 148 mm[Hg] [facility] 20:01:00 [facility] Diastolic blood 2020-06-21 85 mm[Hg] [facility] 20:01:00 [facility] Heart rate 2020-06-21 83 /min [facility] 20:01:00 [facility] Body temperature 2020-06-21 36.94 Teresa [facility] 20:01:00 [facility] Respiratory rate 2020-06-21 18 /min [facility] 20:01:00 [facility] Body height 2020-06-21 180.3 cm [facility] 20:01:00 [facility] Body weight 2020-06-21 131.271 kg [facility] 20:01:00 [facility] BMI 2020-06-21 40.36 kg/m2 [facility] 20:01:00 [facility] Systolic blood 2022-01-24 155 mm[Hg] [facility] 16:10:00 [facility] Diastolic blood 2022-01-24 77 mm[Hg] [facility] 16:10:00 Hospital Heart rate 2022-01-24 85 /min [facility] 16:10:[facility] Body temperature 2022-01-24 36.39 Teresa [facility] 16:10:00 [facility] Respiratory rate 2022-01-24 20 /min [facility] 16:10:00 [facility] Oxygen saturation 2022-01-24 100 /min [facility] in Arterial blood 16:10:00 [facility] by Pulse oximetry Body height 2022-01-24 180.3 cm [facility] 14:12:00 [facility] Body weight 2022-01-24 106.2 kg [facility] 14:12:00 [facility] BMI 2022-01-24 32.65 kg/m2 [facility] 14:12:00 [facility] Systolic blood 2020-06-22 144 mm[Hg] [facility] pressure 15:10:00 Hospital Diastolic blood 2020-06-22 65 mm[Hg] [facility] 15:10:00 Hospital Heart rate 2020-06-22 88 /min [facility] 15:10:00 [facility] Body temperature 2020-06-22 36.22 Teresa [facility] 15:10:00 [facility] Body height 2020-06-22 180.3 cm [facility] 15:10:00 [facility] Respiratory rate 2020-05-05 16 /min [facility] 20:27:41 [facility] Oxygen saturation 2020-05-05 98 /min [facility] in Arterial blood 20:27:41 [facility] by Pulse oximetry Body weight 2020-05-04 128.187 kg [facility] 22:05:46 [facility] BMI 2020-05-04 39.41 kg/m2 [facility] 22:05:46 [facility] BP Systolic 2017-09-03 130 mm[Hg] Location: [facility] 11:02:00 Position: Sitting BP Diastolic 2017-09-03 80 mm[Hg] Location: [facility] 11:02:00 Position: Sitting Height 2017-09-03 71 [...] n 13:14:00 Temperature Oral 2015-08-03 98.5 F [facility] rmann (F) 14:50:00 Height 2015-08-03 180.34 cm [facility] 13:51:00 Procedures Procedure Date / Time Performing Clinician Source Performed VITRECTOMY 2022-01-24 14:57:00 [facility] GLU[facility]SE 2022-01-24 14:38:00 [facility] POCT URINALYSIS DIPSTICK 2021-10-31 19:16:00 Shefali Hooper [facility] POCT URINALYSIS DIPSTICK 2021-10-24 18:43:00 Andressa Puckett [facility] POCT HEMOGLOBIN A1C TEST 2021-10-10 18:23:00 Brody Hinds [facility] Medical [place] REFERRAL- REQUEST/RESPONSE 2021-05-28 05:01:00 Doctor Unassigned , [facility] NOTICE OF PRIVACY 2021-03-26 18:27:07 Doctor Unassigned, [facility] PRACTICES [facility] CONSENT/REFUSAL FOR 2021-03-26 18:26:47 Doctor Unassigned, [facility] DIAGNOSIS AND TREATMENT [facility] NOTICE OF PRIVACY 2020-12-18 16:26:34 Doctor Michellessgiorgio, [facility] CONSENT/REFUSAL FOR 2020-12-18 16:25:51 [facility] ASSIGNMENT OF BENEFITS 2020-12-18 16:25:20 Doctor Shana [facility] Name Medical Branch REFERRAL- REQUEST/RESPONSE 2020-12-08 05:01:00 Doctor Shana , [facility] Name Medical [place] EKG-12 LEAD 2020-12-03 20:44:28 Merlyn Peacock [facility] NOTICE OF PRIVACY 2020-12-03 19:10:09 Doctor Shana, [facility] Medical [place] MRI BRAIN W WO CONTRAST 2020-05-05 18:29:00 [facility] 2020-05-05 17:10:00 [facility] TTE COMPLETE, WO CONTRAST, 2020-05-05 15:22:00 Vidal Ortiz [facility] W AGITATED SALINE ([id number]) POC GLUCOSE 2020-05-05 12:19:00 [facility] HC COMPLETE BLD COUNT 2020-05-05 10:15:00 [facility] W/AUTO DIFF BASIC METABOLIC PANEL 2020-05-05 10:15:00 [facility] VITAMIN B12 LEVEL 2020-05-05 10:15[facility]EV[facility], WHOLE 2020-05-05 10:15:00 Vidal Ortiz [facility] BLOOD THYROID STIMULATING 2020-05-05 10:15:00 [facility] 2020-05-05 10:15[facility]1C 2020-05-05 10:15[facility] SEDIM[facility] RATE 2020-05-05 10:15[facility] 2 2020-05-05 10:15[facility] SYPHILIS TREPONEMA SCREEN 2020-05-05 10:15:00 Vidal Ortiz [facility] WITH RPR CONFIRMATION (REVERSE ALGORITHM) ESTIMATED GFR 2020-05-05 10:15:00 [facility] C-REACTIVE PROTEIN 2020-05-05 10:15:00 Vidal Ortiz [facility] POC GLUCOSE 2020-05-05 01:38:00 UlChloe owen [facility] POC GLUCOSE 2020-05-04 22:14:00 Chloe Minor [facility] URINE CULTURE 2020-05-04 20:33:00 Tom Means [facility] URINALYSIS SCREEN AND 2020-05-04 20:33:00 Tom Means [facility] MICROSCOPY, WITH REFLEX TO CULTURE COVID-19 QUALITATIVE 2020-05-04 20:27:00 Tom Means [facility] RT-PCR ECG 12-LEAD 2020-05-04 20:21:[address] ANGIOGRAM NECK W WO 2020-05-04 19:46:05 Tom Means [facility] CONTRAST CT ANGIOGRAM HEAD W WO 2020-05-04 19:45:38 Tom Means [facility] CONTRAST CT STROKE BRAIN WO 2020-05-04 19:36:06 Tom Means [facility] CONTRAST HC COMPLETE BLD COUNT 2020-05-04 19:19:00 Tom Means [facility] W/AUTO DIFF PARTIAL THROMBOPLASTIN 2020-05-04 19:19:00 Tom Means [facility] TIME (PTT) PROTHROMBIN TIME WITH INR 2020-05-04 19:19:00 Tom Means [facility] COMPREHENSIVE METABOLIC 2020-05-04 19:19:00 Tom Means [facility] PANEL ESTIMATED GFR 2020-05-04 19:19:00 Tom Means [facility] [[facility]] CULTURE, URINE, 2017-08-27 00:[facility]QL] CULTURE, URINE, 2017-08-21 00:00:[facility] [[facility]] CULTURE, URINE, 2017-06-09 00:00:00 [facility] ROUT[facility] CHILO - Endometrial laser [facility] [place] ablation Limbal stem cell Chrystal iqbal transplantation ORIF - Open reduction and Memori al [place] internal fixation of fracture Tendon operation [facility] Randy iqbal History [facility]le [facility] With Endometrial Ablation Plan of Care Planned Activity Planned Date Details Comments Source Future Scheduled 2022-02-01 Pneumococcal Vaccine: [facility] Test 18:59:30 Pediatrics (0 to 5 Years) and At-Risk Patients (6 to 64 Years) (1 - PCV) [code = Pneumococcal Vaccine: Pediatrics (0 to 5 Years) and At-Risk Patients (6 to 64 Years) (1 - PCV)] Future Scheduled 2022-02-01 Hepatitis C screening [facility] Test 18:59:30 (procedure) [code = 464242102] Future Scheduled 2022-02-01 SHINGLES VACCINES (1 Met [facility] Test 18:59:30 of 2) [code = SHINGLES VACCINES (1 of 2)] Future Scheduled 2022-02-01 Screening for [facility] Test 18:59:30 malignant neoplasm of cervix (procedure) [code = 070243395] Future Scheduled 2022-02-01 BREAST CANCER [facility] Test 18:59:30 SCREENING [code = BREAST CANCER SCREENING] Future Scheduled 2022-02-01 COLONOSCOPY SCREENING [facility] Test 18:59:30 [code = COLONOSCOPY SCREENING] Future Scheduled 2022-02-01 HEPATITIS B VACCINES Met [facility] Test 18:59:30 (1 of 3 - Risk 3-dose series) [code = HEPATITIS B VACCINES (1 of 3 - Risk 3-dose series)] Future Scheduled 2022-02-01 Pneumococcal Vaccine: [facility] Test 18:59:30 Pediatrics (0 to 5 Years) and At-Risk Patients (6 to 64 Years) (1 - PCV) [code = Pneumococcal Vaccine: Pediatrics (0 to 5 Years) and At-Risk Patients (6 to 64 Years) (1 - PCV)] Future Scheduled 2022-02-01 Hepatitis C screening [facility] Test 18:59:30 (procedure) [code = 229808583] Future Scheduled 2022-02-01 SHINGLES VACCINES (1 Met [facility] Test 18:59:30 of 2) [code = SHINGLES VACCINES (1 of 2)] Future Scheduled 2022-02-01 COVID-19 VACCINE (2 - [facility] Test 18:59:30 Booster for Joel series) [code = COVID-19 VACCINE (2 - Booster for Joel series)] Future Scheduled 2022-02-01 Screening for [facility] Test 18:59:30 malignant neoplasm of cervix (procedure) [code = 493293963] Future Scheduled 2022-02-01 BREAST CANCER [facility] Test 18:59:30 SCREENING [code = BREAST CANCER SCREENING] Future Scheduled 2022-02-01 COLONOSCOPY SCREENING [facility] Test 18:59:30 [code = COLONOSCOPY SCREENING] Future Scheduled 2022-02-01 HEPATITIS B VACCINES Met [facility] Test 18:59:30 (1 of 3 - Risk 3-dose series) [code = HEPATITIS B VACCINES (1 of 3 - Risk 3-dose series)] Future Scheduled 2022-02-01 COVID-19 VACCINE (2 - [facility] Test 18:59:30 Booster for Joel series) [code = COVID-19 VACCINE (2 - Booster for Joel series)] Future Scheduled 2022-02-01 INFLUENZA VACCINE [facility] Test 18:59:30 [code = INFLUENZA VACCINE] Future Scheduled 2022-02-01 INFLUENZA VACCINE [facility] Test 18:59:30 [code = INFLUENZA VACCINE] Future Scheduled 2021-10-19 COVID-19 VACCINE (#1) [facility] Test 10:53:01 [code = COVID-19 VACCINE (#1)] Future Scheduled 2021-10-19 Pneumococcal Vaccine: [facility] Test 10:53:01 Pediatrics (0 to 5 Years) and At-Risk Patients (6 to 64 Years) (1 - PCV) [code = Pneumococcal Vaccine: Pediatrics (0 to 5 Years) and At-Risk Patients (6 to 64 Years) (1 - PCV)] Future Scheduled 2021-10-19 Hepatitis C screening [facility] Test 10:53:01 (procedure) [code = 786153039] Future Scheduled 2021-10-19 SHINGLES VACCINES (1 [facility] Test 10:53:01 of 2) [code = SHINGLES VACCINES (1 of 2)] Future Scheduled 2021-10-19 Screening for [facility] Test 10:53:01 malignant neoplasm of cervix (procedure) [code = 773309756] Future Scheduled 2021-10-19 BREAST CANCER [facility] Test 10:53:01 SCREENING [code = BREAST CANCER SCREENING] Future Scheduled 2021-10-19 [facility]CREENING [facility] Test 10:53:01 [code = COLONOSCOPY SCREENING] Future Scheduled 2021-10-19 [facility]PATIT[facility]ACCINES [facility] 10:53:01 (1 of 3 - Risk 3-dose series) [code = HEPATITIS B VACCINES (1 of 3 - Risk 3-dose series)] Future Scheduled 2021-10-19 [facility] 10:53:01 [code = INFLUENZA VACCINE] Future Scheduled DIABETES: RETINAL EYE [facility] EXAM [code = DIABETES: RETINAL EYE EXAM] Future Scheduled DIABETIC FOOT EXAM [facility] Test [code = DIABETIC FOOT EXAM] Future Scheduled URINE MICROALBUMIN [facility] Test [code = URINE MICROALBUMIN] Future Scheduled COVID-19 VACCINE (1) [facility] [code = COVID-19 VACCINE (1)] Future Scheduled [facility] (procedure) [code = 185830770] Future Scheduled Screening for [facility] Test malignant neoplasm of cervix (procedure) [code = 704648002] Future Scheduled BREAST CANCER [facility] Test SCREENING [code = BREAST CANCER [...] Date/Time Type Type Clinicians Facility Department ID 2022-01-14 Outpatient AUN Travis [facility] [id number] Common 08:35:01 [facility] [address] [facility] 2021-11-27 Outpatient [facility] [id number] [place] 10:51:18 [id number] [facility] 2021-10-16 Outpatient Travis, STLMLC STLMLC [id number] Common 14:20:[address] [facility] 2021-08-20 Outpatient Travis, STLMLC STLMLC [id number] Common 08:10:[address] [facility] 2021-08-16 Outpatient Travis, STLMLC STLMLC [id number] Common 15:42:[address] [facility] 2021-07-10 Outpatient Travis, STLMLC STLMLC Common 08:19:[address] [facility] 2021-05-08 Outpatient Travis, STLMLC STLMLC [id number] Common 15:07:[address] [facility] 2021-03-29 Outpatient DERESKA, [facility] [id number] [place] 16:38:20 [facility] 2021-03-14 Outpatient DEREA, [facility] [id number] [place] 10:48:45 [facility] 2021-03-14 Outpatient Travis, STLMLC STLMLC Common 09:24:[address] [facility] 2021-03-07 Outpatient Travis, STLMLC STLMLC Common 14:38:[address] [facility] 2021-03-07 Outpatient Travis, STLMLC STLMLC Common 14:34:[address] [facility] 2021-03-07 Outpatient Travis, STLMLC STLMLC Common 14:19:[address] [facility] 2021-03-07 Outpatient Travis, STLMLC STLMLC [id number] Common 14:06:[address] [facility] 2021-03-07 Outpatient Travis, STLMLC STLMLC Common 14:06:[address] [facility] 2021-03-07 Outpatient Travis, STLMLC STLMLC [id number] Common 14:05:[address] [facility] 2021-03-07 Outpatient Travis, STLMLC STLMLC Common 13:56:[address] [facility] 2021-03-07 Outpatient Travis, STLMLC STLMLC Common 13:49:[address] [facility] 2021-03-07 Outpatient Travis, STLMLC STLMLC Common 12:29:[address] [facility] 2021-03-07 Outpatient Travis, STLMLC STLMLC Common 12:27:[address] [facility] 2021-03-07 Outpatient Travis, STLMLC STLMLC Common 12:27:[address] [facility] 2021-03-07 Outpatient Travis, STLMLC STLMLC Common 12:25:[address] [facility] 2021-03-07 Outpatient Travis, STLMLC STLMLC Common 12:24:[address] [facility] 2021-03-07 Outpatient Travis, STLMLC STLMLC Common 12:21:[address] [facility] 2021-03-07 Outpatient Travis, STLMLC STLMLC Common 12:21:[address] [facility] 2021-03-07 Outpatient Travis, STLMLC STLMLC Common 12:20:[address] [facility] 2021-03-07 Outpatient Travis, STLMLC STLMLC Common 12:19:[address] [facility] 2021-03-07 Outpatient Travis, STLMLC STLMLC Common 11:37:[address] [facility] 2021-03-07 Outpatient Travis, STLMLC STLMLC Common 11:36:58 [facility] [address] [facility] 2021-03-07 Outpatient Travis, STLMLC STLMLC Common 11:33:09 [facility] [address] [facility] 2021-03-07 Outpatient Travis, STLMLC STLMLC Common 11:31:11 [facility] [address] [facility] 2021-03-07 Outpatient Travis, STLMLC STLMLC Common 11:06:28 [facility] [address] [facility] 2021-01-10 Outpatient BRADFORDCULPEPER, [facility] [id number] [place] 10:36:54 [facility] hospital 2021-01-10 [facility] [id number] [place] 09:52:14 Critical access hospital 2020-12-12 Emergency [facility] [id number] Univers 09:13:05 [facility] 2020-11-24 Outpatient [facility] [id number] [place] 15:05:59 [facility] access hospital 2020-11-24 Outpatient [facility] [id number] [place] 14:12:16 [facility] access hospital 2020-11-24 Outpatient [facility] [id number] [place] 13:57:46 [facility] access hospital 2020-11-13 Outpatient [facility] [id number] [place] 12:16:17 SHEFALI [facility] 2022-04-24 2022-04-24 Outpatient [facility] [id number] [place] 11:00:00 11:00:00 Daz 3d 2022-04-01 2022-04-[address] [facility] [id number] Lyle 15:48:00 15:48:00 0220 F Frank 2022-03-13 2022-03-13 (TEL) STLMLC STLMLC [id number] Co mmon 00:00:00 00:00:00 [facility] 2022-02-18 2022-02-18 (TEL) STLMLC STLMLC [id number] Co mmon 00:00:00 00:00:00 [facility] 2022-02-08 2022-02-08 OFFICE [facility] [id number] Co mmon 00:00:00 00:00:00 VISIT EST Spir it PT LEVEL [address] [place] [address] 2022-02-08 2022-02-08 (TEL) STALIYAH STLC [id number] Co mmon 00:00:00 00:00:00 [facility] 2022-01-24 2022-01-24 [facility] Fish, 1.2.840.1 [id number] Methodi 06:31:00 23:59:00 Encounter Tuyet Robin 99870.1.[address] 3.430.2.7 Hospit a .3.105090 l .8 2022-01-24 2022-01-24 [facility] Fish, 1.2.840.1 [id number] Methodi 06:31:00 23:59:00 Encounter Tuyet Robin 96262.1.[address] 3.430.2.7 Hospit a .3.051821 l .8 2022-01-24 2022-01-24 Surgery Fish, 1.2.840.1 [id number] 6169 Methodi 09:50:00 11:00:00 Tuyet H. 95032.1.1 654 s t 3.430.2.7 Hospit a .3.027335 l .8 2022-01-24 2022-01-24 Surgery Fish, 1.2.840.1 [id number] 0856 Methodi 09:50:00 11:00:00 Tuyet H. 44469.1.1 654 s t 3.430.2.7 Hospit a .3.896628 l .8 2022-01-24 2022-01-24 Anesthesia Ballivian, 1.2.840.1 [id number] Methodi 08:57:00 10:07:00 Event Aba 59788.1.[address] Faustino 3.430.2.7 Hosp ruiz .3.046808 l .8 2022-01-24 2022-01-24 Anesthesia Ballivian, 1.2.840.1 [id number] Methodi 08:57:00 10:07:00 Event Aba 55862.1.[address] Faustino 3.430.2.7 Hosp ruiz .3.508036 l .8 2022-01-24 2022-01-24 Travel 1.2.840.1 1.2.136.198 [id number] Methodi 00:00:00 00:00:[address] 3.430.2.7 0.2.7.3.698 Ho spita .3.217203 084.8 l .8 2022-01-24 2022-01-24 Travel 1.2.840.1 1.2.051.248 6117 [id number] Methodi 00:00:00 00:00:[address] 3.430.2.7 0.2.7.3.698 Ho spita .3.144627 084.8 l .8 2022-01-16 2022-01-16 OFFICE STLMLC STLMLC [id number] Co mmon 00:00:00 00:00:00 VISIT [facility] LEVEL 4 [facility] 2022-01-01 2022-01-01 (TEL) STLMLC STLMLC [id number] Co mmon 00:00:00 00:00:00 [facility] 2021-12-21 2021-12-21 (TEL) STLMLC STLMLC [id number] Co mmon 00:00:00 00:00:00 [facility] 2021-12-05 2021-12-05 Outpatient LAVERN [facility] [id number] [place] 14:50:00 14:50:00 ANDRESSA [employer] 2021-11-14 2021-11-14 Telephone Chavez NMCAMILA 1.2.307.250 [id number] Univers 00:00:00 00:00:00 [facility] Appsfire 350.1.13.10 it y of [place] 4.2.7.2.686 Lionel as DAMIAN?BLEA [phone] [address] OFFICE BUILDING 2021-10-31 2021-10-31 Office Michael [facility] 1.2.424.794 [id number] [place] 13:30:00 14:24:45 Visit Shefali SUGAR 350.1.13.58 He alth [place] 9.2.7.2.686 [address] 5 [phone] AND 5 WOMENS 2021-10-24 2021-10-24 Procedure Lavern [facility] 1.2.840.114 [id number] [place] 13:40:00 14:27:30 Visit Andressa SUGAR 350.1.13.58 He alth [place] 9.2.7.2.686 [address] [phone] AND 5 WOMENS 2021-10-17 2021-10-17 OFFICE STLMLC STLMLC [id number] Co mmon 00:00:00 00:00:00 VISIT [facility] LEVEL 4 [facility] 2021-10-11 2021-10-11 (TEL) STLMLC STLMLC [id number] Co mmon 00:00:00 00:00:00 [facility] 2021-10-10 2021-10-10 Outpatient R CHAVEZ [facility] [id number] Univers 13:30:00 14:23:09 [facility] 2021-10-10 2021-10-10 Office Chavez [facility] 1.2.840.114 [id number] Univers 13:30:00 14:23:09 Visit [facility] 350.1.13.10 it y of [place] 4.2.7.2.686 Lionel as DAMIAN?BLEA [phone] [address] MEDICAL OFFICE BUILDING 2021-10-09 2021-10-09 (TEL) STLMLC STLMLC [id number] Co mmon 00:00:00 00:00:00 [facility] 2021 2021 (TEL) STLMLC STLMLC [id number] Co mmon 00:00:00 00:00:00 [facility] 2021-08-14 2021-08-14 (TEL) STLMLC STLMLC [id number] Co mmon 00:00:00 00:00:00 [facility] 2021-08-07 2021-08-07 Outpatient R CHAVEZ [facility] [id number] Univers 15:30:00 15:30:00 [facility] 2021-07-23 2021-07-23 Telephone Chavez [facility] 1.2.291.238 [id number] Univers 00:00:00 00:00:00 [facility] 350.1.13.10 it y of [place] 4.2.7.2.686 Lionel as DAMIAN?BLEA [phone] [address] MEDICAL OFFICE BUILDING 2021-07-18 2021-07-18 OFFICE [facility] [id number] Co mmon 00:00:00 00:00:00 VISIT [facility] LEVEL 4 [facility] 2021-05-29 2021-05-29 Outpatient R CHAVEZ [facility] [id number] Univers 10:30:00 10:30:00 [facility] 2021-05-28 2021-05-28 Orders Doctor AURELIO 1.2.840.114 [id number] Univers 00:00:00 00:00:00 Only Unassigned, BETY 350.1.13.10 [facility] 4.2.7.2.686 Lionel as [phone] [address] 2021-05-25 2021-05-25 (TEL) [facility] [id number] Co mmon 00:00:00 00:00:00 [facility] 2021-04-16 2021-04-[address] Spence [facility] 1.2.840.1 14 [id number] [place] 00:00:00 00:00:00 Ct Spence SUGAR 350.1.13.58 [facility] 9.2.7.2.686 [address] [phone] AND 2 WOMENS 2021-04-03 2021-04-03 Outpatient R CHAVEZ [facility] [id number] Univers 10:00:00 10:00:00 [facility] 2021-04-03 2021-04-03 OFFICE [facility] [id number] Co mmon 00:00:00 00:00:00 VISIT Williams CHING PT - CHI LEVEL 4 [facility] 2021-03-26 2021-03-[address] [facility] ERT [id number] Univers 12:42:00 13:51:00 RASHMI ity of [facility] 2021-03-26 2021-03-26 Emergency [facility] 1.2.509.990 [id number] Univers 12:42:00 13:51:00 Rashmi Sanford MARYCHUY 350.1.13.10 i ty [facility] 4.2.7.2.686 [facility] [id number] [facility] [address] 2021-03-26 2021-03-26 Orders Doctor AURELIO 1.2.840.114 [id number] Univers 00:00:00 00:00:00 Only Unassigned, BETY 350.1.13.10 [facility] 4.2.7.2.686 [facility] [phone] [facility] 009 Branch 2021-03-26 2021-03-26 (TEL) [facility] [id number] Co mmon 00:00:00 00:00:00 Spirit - [facility]I [facility] 2021-03-14 2021-03-[address] Spence [facility] 1.2.840.1 14 [id number] [place] 00:00:00 00:00:00 Ct Sp[facility] 350.1.13.58 Health [place] 9.2.7.2.686 [address] 6 [phone] AND 2 WOMENS 2021-03-12 2021-03-[address] Spence [facility] 1.2.840.1 14 [id number] [place] 00:00:00 00:00:00 Ct Spence [place]GAR 350.1.13.58 Health [place] 9.2.7.2.686 [address] 4 [id number] AND 2 WOMENS 2021-03-09 2021-03-[address] Spence [facility] 1.2.840.1 14 [id number] [place] 00:00:00 00:00:00 Ct Spence SUGAR 350.1.13.58 [facility] 9.2.7.2.686 PLA[address] 1 [phone] AND 2 WOMENS 2021-03-07 2021-03-07 Outpatient R CHAVEZ [facility] [id number] Univers 14:30:00 14:30:00 [facility] 2021-03-06 2021-03-06 Telephone Chavez [facility] 1.2.319.044 [id number] Univers 00:00:00 00:00:00 [facility] 350.1.13.10 it y of [place] 4.2.7.2.686 Lionel as DAMIAN?BLEA [phone] [address] MEDICAL OFFICE BUILDING 2021-03-05 2021-03-05 OFFICE STLMLC STLMLC [id number] Co mmon 00:00:00 00:00:00 VISIT [facility] ESTAB PT - CHI LEVEL 4 [facility] 2021-03-05 2021-03-05 SUB ANNUAL STLMLC STLMLC [id number] Common 00:00:00 00:00:00 MCR Spirit WELLNESS - CHI VISIT [facility] 2021-03-01 2021-03-01 (TEL) STLMLC STLMLC [id number] Co mmon 00:00:00 00:00:00 [facility] 2021-02-28 2021-02-28 (TEL) STLMLC STLMLC [id number] Co mmon 00:00:00 00:00:00 Spirit [facility] 2021-02-27 2021-02-27 (TEL) STLMLC STLMLC [id number] Co mmon 00:00:00 00:00:00 [facility] 2021-02-26 2021-02-26 (TEL) STLMLC STLMLC [id number] Co mmon 00:00:00 00:00:00 [facility] 2021-01-03 2021-01-03 (TEL) STLMLC STLMLC [id number] Co mmon 00:00:00 00:00:00 [facility] 2020-12-27 2020-12-27 (TEL) STLMLC STLMLC [id number] Co mmon 00:00:00 00:00:00 [facility] 2020-12-18 2020-12-18 Hospital Radiology [facility] 1.2.840.114 [id number] Univers 10:28:59 23:59:00 Encounter [place] 350.1.13.10 ity of [place] 4.2.7.2.686 [facility] [phone] [facility] [address] [place] 2020-12-18 2020-12-18 Outpatient R RADIOLOGY [facility] [id number] Univers 00:00:00 23:59:00 ity of [facility] 2020-12-18 2020-12-18 Orders Doctor AURELIO 1.2.840.114 [id number] Univers 00:00:00 00:00:00 Only Unassigned, BETY 350.1.13.10 it[place] of [place] [facility] 4.2.7.2.686 Lionel as [phone] [address] 2020-12-08 2020-12-08 Orders Doctor AURELIO 1.2.840.114 [id number] Univers 00:00:00 00:00:00 Only Unassigned, BETY 350.1.13.10 ity of [place] [facility] 4.2.7.2.686 Lionel as [phone] [address] 2020-12-07 2020-12-07 OFFICE STLMLC STLMLC [id number] Co mmon 00:00:00 00:00:00 VISIT Spirit [facility] PT - CHI LEVEL 4 [facility] 2020-12-07 2020-12-07 (TEL) STLMLC STLMLC [id number] Co mmon 00:00:00 00:00:00 Spirit [facility] 2020-12-06 2020-12-06 (TEL) STLMLC STLMLC [id number] Co mmon 00:00:00 00:00:00 [facility] 2020-12-05 2020-12-05 (TEL) STLMLC STLMLC [id number] Co mmon 00:00:00 00:00:00 [facility] 2020-12-04 2020-12-04 (TEL) [facility] STLC [id number] Co mmon 00:00:00 00:00:00 [facility] 2020-12-04 2020-12-04 (TEL) [facility] [id number] Co mmon 00:00:00 00:00:00 [facility] 2020-12-03 2020-12-03 Emergency [facility] 1.2.982.159 [id number] [facility] 14:18:00 16:20:00 Merlyn Martinez 350.1.13.10 ity of [place] 4.2.7.2.686 [facility] [phone] [facility] [address] 2020-12-03 2020-12-03 Orders Doctor CAREY 1.2.840.114 [id number] Univers 00:00:00 00:00:00 Only Unassigned, BETY 350.1.13.10 ity of [place] [facility] 4.2.7.2.686 [facility] [phone] [facility] 009 [address] 2020-11-27 2020-11-27 Orders Michael [facility] 1.2.128.786 [id number] [place] 00:00:00 00:00:00 Only Shefali SUGAR 350.1.13.58 [facility] [place] 9.2.7.2.686 [address] 4 [phone] AND 5 WOMENS 2020-11-27 2020-11-[address] Spence [facility] 1.2.840.1 14 [id number] [place] 00:00:00 00:00:00 Ct [place] 350.1.13.58 [facility] [place] 9.2.7.2.686 [address] 3 [phone] AND 2 WOMENS 2020-11-24 2020-11-24 Office Michael [facility] 1.2.394.738 [id number] [place] 14:14:20 15:06:05 Visit Shefali SUGAR 350.1.13.58 alth [place] 9.2.7.2.686 [address] 8 [phone] AND 5 WOMENS 2020-11-102020-11-10 (TEL) STLMLC STLMLC [id number] Co mmon 00:00:00 00:00:00 [facility] 2020-10-26 2020-10-26 OFFICE STLMLC STLMLC [id number] Co mmon 00:00:00 00:00:00 VISIT [facility] LEVEL 4 [facility] 2020-10-26 2020-10-26 (TEL) STLMLC STLMLC [id number] Co mmon 00:00:00 00:00:00 [facility] 2020-10-12 2020-10-12 Outpatient STLMLC STLMLC [id number] Common 00:00:00 00:00:00 [facility] 2020-09-28 2020-09-28 Documentat Nida Wheeler 1.2.840.1 [id number] Methodi 00:00:00 00:00:[address] 3.430.2.7 Hospit a .3.867186 l .8 2020-08-16 2020-08-16 Reflily CarneyRUST 1.2.626.048 [id number] Univers 00:00:00 00:00:00 Adriana Martinez 350.1.13.10 i ashkan [facility] 4.2.7.2.686 Kassidy haro Professio [phone] [address] 2020-07-19 2020-07-19 Outpatient [facility] [id number] [facility] 09:00:00 09:00:00 ADRIANA pierce [facility] 2020-06-22 2020-06-22 Office Nida Wheeler 1.2.840.1 [id number] Methodi 09:54:22 10:40:[address] 3.430.2.7 Hospit a .3.854821 l .8 2020-06-22 2020-06-22 Travel 1.2.840.1 1.2.809.430 [id number] Methodi 00:00:00 00:00:[address] 3.430.2.7 0.2.7.3.698 Ho spita .3.450544 084.8 l .8 2020-06-21 2020-06-21 Office Adriana Carney [facility] 1.2.840.11 4 [id number] Univers 14:30:27 16:08:05 Visit Swapnilbarrie Goldie Antony Martinez 350.1.13.10 ity [facility] [place]7.2.[place] [phone] Sc dical [address] 2020-06-21 2020-06-21 Outpatient [facility] [id number] Univers 15:00:00 15:00:00 GOLDIE pierce [facility] 2020-06-21 2020-06-21 Telephone [facility] 1.2.840.114 [id number] Univers 00:00:00 00:00:00 Adriana Martinez 350.1.13.10 i ty [facility] [id number] Sc dical [address] 2020-06-01 2020-06-01 Outpatient [facility] [id number] Common 00:00:00 00:00:00 [facility] 2020-06-01 2020-06-01 Outpatient [facility] [id number] Common 00:00:00 00:00:00 [facility] 2020-05-30 2020-05-30 Travel 1.2.840.1 1.2.209.625 [id number] Methodi 00:00:00 00:00:[address] 3.430.2.7 0.2.7.3.698 Ho spita .3.148865 084.8 l .8 2020-05-26 2020-05-26 Outpatient [facility] [id number] Common 00:00:00 00:00:00 [facility] 2020-05-17 2020-05-17 Outpatient [facility] ST[facility] [id number] Common 00:00:00 00:00:00 [facility] 2020-05-04 2020-05-05 Emergency Kingsley Corado 1.2.840.1 [id number] Methodi 13:01:00 16:43:00 Chloe Minor [address]321.1.[address] 3.430.2.7 Hospit a .3.671230 l .8 2020-05-04 2020-05-04 Travel 1.2.840.1 1.2.039.511 [id number] Methodi 00:00:00 00:00:[address] 3.430.2.7 0.2.7.3.698 Ho spita .3.200798 084.8 l .8 2020-04-14 2020-04-14 Outpatient [facility] [id number] Common 00:00:00 00:00:00 [facility] 2020-04-10 2020-04-10 Outpatient [facility] [id number] Common 00:00:00 00:00:00 [facility] 2020-03-31 2020-03-31 Outpatient [facility] ST[facility] [id number] Common 00:00:00 00:00:00 [facility] 2020-03-23 2020-03-23 Outpatient [facility] [id number] Common 00:00:00 00:00:00 [facility] 2020-03-23 2020-03-23 Outpatient [facility] ST[facility] [id number] Common 00:00:00 00:00:00 [facility] 2020-03-14 2020-03-14 Outpatient STLMLC STLMLC [id number] Common 00:00:00 00:00:00 [facility] 2020-03-07 2020-03-07 Outpatient STLMLC STLMLC [id number] Common 00:00:00 00:00:00 [facility] 2020-02-28 2020-02-28 Outpatient STLMLC STLMLC [id number] Common 00:00:00 00:00:00 [facility] 2020-02-24 2020-02-24 Outpatient STLMLC STLMLC [id number] Common 00:00:00 00:00:00 [facility] 2020-02-23 2020-02-23 Outpatient STLMLC STLMLC [id number] Common 00:00:00 00:00:00 [facility] 2020-02-23 2020-02-23 Outpatient STLMLC STLMLC [id number] Common 00:00:00 00:00:00 [facility] 2019-11-24 2019-11-25 Outpt Diag nullFlavo [facility] [id number] Memoria 14:28:00 04:59:00 Services r Outpatient 03 l Imaging [facility] 2019-11-24 2019-11-25 Outpt Diag nullFlavo [facility] [id number] Memoria 14:28:00 04:59:00 Services r Outpatient 03 l Imaging [facility] 2019-11-24 2019-11-24 Outpatient Etelvina, MHOIP MHOIP [id number] 09:28:00 23:59:00 Rena Clements 2019-11-11 2019-11-11 Outpatient STLMLC STLMLC [id number] Common 00:00:00 00:00:00 [facility] 2019-11-02 2019-11-02 Outpatient STLMLC STLMLC [id number] Common 00:00:00 00:00:00 [facility] 2019-11-02 2019-11-02 Outpatient STLMLC STLMLC [id number] Common 00:00:00 00:00:00 [facility] 2019-10-27 2019-10-27 [facility] [id number] Common 14:10:00 14:10:00 t [place] [address] [facility] 2019-10-27 2019-10-27 [facility] [id number] Common 10:59:00 10:59:00 t [employer] [place] [address] [facility] 2019-10-12 2019-10-12 [facility] [id number] Common 08:20:00 08:20:00 [place] [address] [facility] 2019-09-22 2019-09-22 [facility] [id number] Common 08:30:00 08:30:00 [place] [address] [facility] 2019-08-10 2019-08-10 [facility] [id number] Common 13:30:00 13:30:00 [place] [address] [facility] 2019-04-02 2019-04-02 [facility] [id number] Common 15:07:00 15:07:00 [place] [address] [facility] 2019-03-16 2019-03-16 [facility] [id number] Common 17:04:00 17:04:00 [place] [address] [facility] 2018-12-03 2018-12-03 [facility] [id number] Common 16:41:00 16:41:00 [place] [address] [facility] 2018-11-18 2018-11-18 [facility] [id number] Common 08:00:00 08:00:00 [place] [address] [facility] 2018-07-22 2018-07-22 [facility] [id number] Common 08:30:00 08:30:00 [place] [address] [facility] 2018-06-10 2018-06-10 [facility] [id number] Common 09:53:00 09:53:00 [place] [address] [facility] 2018-03-23 2018-03-23 [facility] [id number] Common 14:00:00 14:00:00 [place] [address] [facility] 2018-03-19 2018-03-19 [facility] [id number] Common 10:45:00 10:45:00 [place] [address] [facility] 2017-11-10 2017-11-10 [facility] [id number] Common 10:15:00 10:15:00 [place] [address] [facility] 2017-11-06 2017-11-06 [facility] [id number] Common 08:00:00 08:00:00 [place] [address] [facility] 2017-09-23 2017-09-23 [facility] [id number] Common 16:07:00 16:07:00 [place] [address] [facility] 2017-09-03 2017-09-03 Appointmen HALHUNGOK, UTP UroGynecolo 4 [id number] [place] 11:00:00 11:00:00 t; KARISSA CLEANING gy Center [facility] KARISSA CLEANING 2017-08-27 2017-08-27 Appointmen HALBROOK, UTP UroGynecolo 4 [id number] [place] 14:10:00 14:10:00 t; KARISSA CLEANING gy Center [facility] KARISSA CLEANING 2017-08-21 2017-08-21 Appointmen HALBROOK, UTP UroGynecolo 4 [id number] [place] 10:10:00 10:10:00 t; KARISSA CLEANING gy Center [facility] mar CLEANING NP 2017-08-14 2017-08-14 Appointmen HALBROOK, UTP UroGynecolo 4 [id number] [place] 11:00:00 11:00:00 t; KARISSA CLEANING gy Center Ph [facility] mar CLEANING NP 2017-07-31 2017-07-31 Appointmen HALBROOK, UTP UroGynecolo 4 [id number] [place] 14:10:00 14:10:00 t; KARISSA CLEANING gy Center [facility] ans KARISSA CLEANING 2017-07-24 2017-07-24 Appointmen HALBROOK, UTP UroGynecolo 4 [id number] [place] 13:20:00 13:20:00 t; KARISSA CLEANING gy Center [facility] KARISSA CLEAN[facility] 2017-07-17 2017-07-17 Appointmen BRADFORDHUNGJARRETT, UTP UroGynecolo 4 [id number] [place] 14:10:00 14:10:00 t; KARISSA CLEANING gy Center [facility] KARISSA CLEANING 2017-07-03 2017-07-03 Appointmen UROGYN1, UTP Women's [id number] [place] 09:00:00 09:00:00 t; [facility] UROGYN1, [facility] DERESKA 2017-06-26 2017-06-26 Appointmen HALHUNGJARRETT, UTP UroGynecolo 4 [id number] [place] 09:00:00 09:00:00 t; KARISSA CLEANING gy Center [facility] 2017-06-25 2017-06-25 [facility] [id number] Common 09:30:00 09:30:00 t [facility] 99.co [facility] 2017-06-19 2017-06-19 Appointguerita FELDERHUNGJARRETT, UTP UroGynecolo 4 [id number] [place] 15:20:00 15:20:00 t; KARISSA CLEANING gy Center [facility] KARISSA CLEAN[facility] 2017-06-12 2017-06-12 Appointguerita FELDERHUNGJARRETT, UTP UroGynecolo 4 [id number] [place] 13:20:00 13:20:00 t; KARISSA CLEANING gy Center [facility] ans KARISSA CLEANING 2017-06-09 2017-06-09 Appointmen HALROCHELLE, UTP UTP [id number] [place] 09:20:00 09:20:00 t; KARISSA CLEANING Phys ici HALBROOK, ans KARISSA CLEANING 2016-12-19 2016-12-19 Appointmen MICHAEL, UTP UTP [id number] [place] 10:10:00 10:10:00 t; KARISSA CLEANING Phys ici HALBROOK, ans KARISSA CLEANING 2016-11-28 2016-11-28 Appointmen MICHAEL, UTP UTP [id number] [place] 10:10:00 10:10:00 t; KARISSA CLEANING Phys kayla HOOPER, mar CLEANING NP 2016-09-12 2016-[facility] UTP [id number] [place] 13:20:00 13:20:00 t; KARISSA CLEANING Phys kayla 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, 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 2016-04-01 2016-04-01 Emergency [facility] [id number] Memoria 17:43:00 23:41:00 r [place] 02 l [place] 2016-04-01 2016-04-01 Emergency [facility]Flavo [facility] [id number] Memoria 17:43:00 23:41:00 r [place] 02 l [place] [facility] 2016-04-01 2016-04-01 Outpatient Julio C [place] [facility] [id number] 11:43:00 17:41:00 In[place] 02 2015-11-30 2015-11-30 [facility] MICHAEL, [facility] UTP [id number] [place] 09:00:00 09:00:00 t; KARISSA CLEANING Phys kayla HOOPER, mar CLEANING NP 2015-10-20 2015-10-20 [facility] [place], [facility] UTP [id number] [place] 10:10:00 10:10:00 t; Preeti CARTER ans NINA, M.D. 2015-09-21 2015-09-21 [facility] [place], [facility] UTP [id number] [place] 13:00:00 13:00:00 t; Preeti CARTER ans NINA, M.D. 2015-08-10 2015-08-10 OBS Day [facility]Flavo [facility] [id number] Memoria 12:24:00 19:42:00 Surgery r [place] 00 l [place] [facility] 2015-08-10 2015-08-10 OBS Day [facility]Flavo [facility] [id number] Memoria 12:24:00 19:42:00 Surgery r [place] 00 l [place] 2015-08-10 2015-08-10 Outpatient CONRADO Puckett [facility] [id number] 07:24:00 14:42:00 Andressa Guerrero 2015-08-10 2015-08-10 [facility] [place] [facility] UTP [id number] [place] 09:30:00 09:30:00 t; Preeti CARTER ans NINA, M.D. 2015-08-02 2015-08-02 [facility] [place], [facility] UTP [id number] [place] 08:30:00 08:30:00 t; Preeti CARTER ans NINA, M.D. 2015-07-05 2015-07-05 [facility] [place], [facility] [id number] [place] 08:30:00 08:30:00 t; Preeti CARTER ans NINA, M.D. 2015-04-28 2015-04-29 Outpt Diag nullFlavo [facility] [id number] Memoria 15:30:00 04:59:00 Services r Outpatient 02 l Imaging - Randy n Gosia 2015-04-28 2015-04-29 Outpt Diag nullFlavo [facility] [id number] Memoria 15:30:00 04:59:00 Services r Outpatient 02 l Imaging - Randy n [facility] 2015-04-28 2015-04-28 Outpatient Lavern, [id number] 10:30:00 23:59:00 Andressa [id number] [place] [id number] 2011-09-02 2011-09-02 OD FAY FAY [id number] Memoria 08:48:00 08:48:00 00 antony English 2011-09-02 2011-09-02 OD FAY FAY [id number] Memoria 08:48:00 08:48:00 00 antony English Results Test Description Test Time Test Comments Results Result Comments Source POC glucose 2022-01-24 14:39:00 Test Item Value Reference Range Interpretation Comme nts POC glucose (test code = 237 mg/dL 65-99 H Ope rator Name: Fortino Acosta ID: [id number]) [id number] able: [facility] Notified reserve officer Interpretation (test code = Abnormal 46742-5) [facility] [id number] 14:39:00 Test Item Value Reference Range Interpretation Comments POC glucose (test code = 237 mg/dL 65-99 H Ope rator Name: Fortino [id number] Cevallosvicdaina ID: [id number] able: [facility] Notified reserve officer Interpretation (test Abnormal code = 08520-3) [facility] urinalysis dipstick manually [id number] 19:16:00 Test Item Value Reference Range Interpretation Comments Glucose, UA (test code 1000 mg/dL Negative A = 7173582) Bilirubin, UA (test Negative Negative code = 2746541) Ketones, Urine (test Negative Negative, Trace code = 75774-8) Spec Grav, UA (test code = 453321142) Blood, UA (test code = Mod 259081083) pH, UA (test code = 5.0-8.5 8288219) Protein, UA (test code Negative Negative, Trace, = 3954160) 200(+2)mg/dL, 15/mg/dL Urobilinogen, UA (test See_Comment [Aut omated code = 6656885) message] The system which generated this result transmitted reference range : 0.2. The refere nce range was not u sed to interpret th is result as normal/abnormal . Nitrite, UA (test code Negative Negative, Trace = 3554285) Leukocytes, UA (test Negative Negative, Trace code = 8601987) Lab Interpretation Abnormal (test code = 77303-6) [facility] urinalysis dipstick manually [id number] 18:43:00 Test Item Value Reference Range Interpretation Comments Glucose, UA (test code 500 mg/dL Negative A = 2038125) Bilirubin, UA (test Negative Negative code = 4411611) Ketones, Urine (test Negative Negative, Trace code = 61493-3) Spec Grav, UA (test code = 287201635) Blood, UA (test code = Trace 983452142) pH, UA (test code = 5.0-8.5 6471317) Protein, UA (test code Negative Negative, Trace, = 8096825) 200(+2)mg/dL, 15/mg/dL Urobilinogen, UA (test See_Comment [Aut omated code = 2350161) message] The system which generated this result transmitted reference range : 0.2. The refere nce range was not u sed to interpret th is result as normal/abnormal . Nitrite, UA (test code Negative Negative, Trace = 6982074) Leukocytes, UA (test Negative Negative, Trace code = 3200231) Lab Interpretation Abnormal (test code = 38194-2) [facility] HEMOGLOBIN A1C [id number] 18:23:00 Test Item Value Reference Range Interpretation Comments POCT HBA1C (test code = 4548-4) 14 % 4-6 A Lab Interpretation (test code = Abnormal 09601-2) [facility] HEMOGLOBIN A1C [id number] 18:23:00 Test Item Value Reference Range Interpretation Comments POCT HBA1C (test code = 4548-4) 14 % 4-6 A Lab Interpretation (test code = Abnormal 47497-7) [facility] 12 [id number] 00:09:04 Test Item Value Reference Range Interpretation Comments Ventricular rate (test code = 253) Atrial rate (test code = 255) WV interval (test code = 266) QRSD interval [...] abnormality no longer evident in [facility]ateral [facility], (w Contrast, Strain and 3D if needed)2020-05-05 21:56:13 Test Item Value Reference Range Interpretation Comments AoV Area, Vmax (test 3.00 cm2 code = 0034750771) AoV Area, VTI (test 2.90 cm2 code = 1984591677) AoV Mean PG (test code mmHg = 4480014455) AoV Peak PG (test code mmHg = 9829781457) AoV Vmax (test code = 1.31 m/s 5578000333) AoV VTI (test code = 0.26 m 4753518839) IVS,d (test code = 1.03 cm 1961043801) IVS/LVPW,2D (test code = 9903767810) Left Atrium Dimension 4.40 cm Anterior (test code = 1840513395) LV,d (test code = 5.15 cm 9774100341) LV EF,2D (test code = 55.90 % 3935806512) LV,s (test code = 3.92 cm 0826111200) LVOT area (test code = 3.14 cm2 9628149491) LVOT Diam,S (test code 2.00 cm = 5379159008) LVOT Vmax (test code = 1.25 m/s 0607085428) LVOT VTI (test code = 0.24 m 7530825188) LVPWD,d (test code = 0.86 cm 8620742032) PV Pk Grad (test code = mmHg 7284276354) PV VMAX (test code = 0.90 m/s 3204095764) RVOT Vmax (test code = 0.78 m/s 3362319601) TR Vpeak (test code = 2.34 mm/s 5960536599) MV E A ratio (test code = 6941443135) TR pk grad (test code = mmHg 8852174035) MR Vmax (test code = 4.27 m/s 7907257015) MR peak grad (test code mmHg = 0871263778) E wave decelartion time msec (test code = 0513055356) MV Peak A Sam (test 0.87 m/s code = 1169518425) MV valve area p 1/2 3.17 cm2 method (test code = 1694987057) MV Peak E Sam (test 0.83 m/s code = 8110256855) MV stenosis pressure 69.31 ms 1/2 time (test code = 6903322905) LVOT stroke volume 0.75 cm3 (test code = 8005087200) AV LVOT peak gradient mmHg (test code = 3334955787) Ao Root,d,2D (test code 3.00 cm = 5882237650) LV SYS VOL (test code = 66.72 ml 9326963799) LV LICONA VOL (test code 126.64 ml = 6144228781) LV SV Teich 2D (test 59.92 ml code = 5333484633) LV Vol s Teich PSAX 66.72 ml (test code = 9460010478) RVOT pk grad (test code mmHg = 6102003008) AoV Vmn (test code = 1964021327) LV FS Teich 2D (test code = 1249489624) MV AE ratio (test code = 3889043333) LV FS Cube 2D (test code = 7813581717) LVOT Vmn (test code = 2912666303) Aov area Vmn (test code 2.80 cm2 = 8611644826) LVOT mean grad (test mmHg code = 4063671631) MAX Pred HR (test code = 0374619650) 85 of MPHR (test code = 8790481098) Ao d LA s ratio (test code = 4157060143) Calc MPHR (test code = bpm 3407307091) LV SV Cube 2D (test 76.35 ml code = 4951217048) LV vol d cube 2D (test 136.59 ml code = 7632539698) LV vol s cube 2D (test 60.24 ml code = 4957231035) MV Decel slope (test 3.45 m/s2 code = 5653725146) Pred Exer Dur R1 (test code = 9345846318) Pred METS R1 (test code = 6627768737) Velocity Ratio (V1/V2) 0.95 m/s (test code = 4689) EF (test code = 47.32 % 5199705279) E/A ratio (test code = 9108646689) LVOT VTI (CM) (test 24.00 cm code = 2261485007) MARIOLA (test code = MARIOLA) Normal left ventricular size and function with an EF~ 55% to 60%.Normal right ventricular size and function.Structurally normal cardiac valves.Mild mitral regurgitation. Left atrial enlargement. Normal pericardium with no effusion.Grade 1 diastolic dysfunction. [facility] Brain W Wo [id number] 18:34:06EXAM: MRI BRAIN W WO CONTRAST CLINICAL [...] is no enhancing lesion in the brain. [id number] Interface, Radiology Results Incoming - 05/05/2020 1:37 [...] There is no enhancing lesion in the brain.[id number] HospitalUrine [id number] 20:46:09 Test Item Value Reference Range Interpretation Comments Urine culture (test SEE COMMENT Bacteriu summer screen code = 3300824) negative. [facility] Wo [id number] 19:49:34EXAMINATION: CT ANGIOGRAM HEAD W WO CONTRAST [...] vessel occlusion or aneurysm. 1M2RAD_PS01Hm Interface, Radiology ResultsIncoming - 05/04/2020 2:52 PM CDT EXAMINATION: CT ANGIOGRAM [...] occlusion or aneurysm.1M2RAD_PS01[facility] Neck W Wo [id number] 19:48:26 EXAMINATION: CT ANGIOGRAM NECK W WO [...] Vertebral artery patency. 1M2RAD_PS01Hm Interface, Radiology Results Incoming 05/04/2020 2:51 PM CDT EXAMINATION: CT ANGIOGRAM [...] criteriaVertebral artery patency.1M2RAD_PS01[facility] Hospital[facility] Stroke Brain Wo [id number] 19:42:38EXAMINATION: CT STROKE BRAIN WO CONTRAST CLINICAL [...] 1441 hours on 05/04/2020 who verbalized understanding. [facility]- [id number] Interface, Radiology Results 05/04/2020 2:45 PM CDT [...] at 1441 hours on 05/04/2020 who verbalized understanding.[id number]] CULTURE, URINE, [id number] 14:25:01 Test Item Value Reference Range Interpretation Comments ORGANISM (test Escherichia coliEnterococcus code = 699-9) Species FINAL REPORT 50,000 - 100,000 CFU/mL (test code = Escherichia coli 10,000 - FINAL REPORT) 50,000 CFU/mL EnterococcusSpecies 10,000 - 50,000 CFU/mL Skin Nina [facility][H] [id number] 14:25:01 Test Item Value Reference Range Interpretation Comments ORGANISM (test code = Enterococcus 699-9) Species Ampicillin (test code - S = Ampicillin) Levofloxacin (test - S code = Levofloxacin) Nitrofurantoin (test - S code = Nitrofurantoin) Tetracycline (test - S code = Tetracycline) Vancomycin (test code SEE NOTES S S= Latoya ceptible, = Vancomycin) R= Resistant, I= Intermediate, N/A= Not Applicable [facility][H] [id number] 14:25:01 Test Item Value Reference Range Interpretation [...] Tetracycline (test code = - S Tetracycline) [facility][O] Urine Dipstick (In Office)2017-08-27 15:29:00 Test Item Value Reference Range Interpretation Comments LEUKOCYTES (test code = LEUKOCYTES) 2+ A NITRITE; Normal (test code = 30414-3) neg N UROBILINOGEN; Normal (test code = 0.2 N 50098-3) PROTEIN; Normal (test code = 17520-5) neg N pH (test code = pH) 6.5 N URINE BLOOD; Abnormal (test code = trace A 82416-4) SPECIFIC GRAVITY; Normal (test code = 1.020 N 2965-2) KETONES; Normal (test code = 56217-2) neg N BILIRUBIN; Normal (test code = 81445-9) neg N GLUCOSE; Normal (test code = 1547-9) neg N [facility]] CULTURE, URINE, [id number] 15:37:01 Test Item Value Reference Range Interpretation Comments ORGANISM (test code = Escherichia coli 699-9) FINAL REPORT (test 50,000 - 100,000 CFU/mL code = FINAL REPORT) Escherichia coli . 50,000 - 100,000 CFU/mL [facility][H] [id number] 15:37:01 Test Item Value Reference Range Interpretation [...] Resi stant, I= Intermediate, N/A= Not Applicable [facility][O] Urine Dipstick (In Office)2017-08-21 12:24:00 Test Item Value Reference Range Interpretation Comments LEUKOCYTES (test code = LEUKOCYTES) 2+ A NITRITE; Normal (test code = 50916-3) NEG N UROBILINOGEN; Normal (test code = 0.2 N 49635-3) PROTEIN; Abnormal (test code = 51735-0) 30 MG A pH (test code = pH) 5.5 N URINE BLOOD; Abnormal (test code = 2+ A 09611-5) SPECIFIC GRAVITY; Normal (test code = 1.030 N 2965-2) KETONES; Normal (test code = 56245-7) NEG N BILIRUBIN; Normal (test code = 89971-8) NEG N GLUCOSE; Normal (test code = 1547-9) NEG N [facility][O] Urine Dipstick (In Office)2017-06-09 10:06:00 Test Item Value Reference Range Interpretation Comments LEUKOCYTES (test code = LEUKOCYTES) 2+ A NITRITE; Normal (test code = 16436-0) NEG N UROBILINOGEN; Normal (test code = 0.2 N 84132-0) PROTEIN; Normal (test code = 12641-6) NEG N pH (test code = pH) 7.0 N URINE BLOOD; Abnormal (test code = 2+ A 47230-6) SPECIFIC GRAVITY; Normal (test code = 1.010 N 2965-2) KETONES; Normal (test code = 14971-1) NEG N BILIRUBIN; Normal (test code = NEG N 55575-1) GLUCOSE; Abnormal (test code = 1547-9) 250 MG A [facility]] BV/ VAGINITIS PANEL DNA PROBE [id number] 09:20:01 Test Item Value Reference Range Interpretation Comments Trichomonas vaginalis DNA (test code Negative Negative = 63699-9) Gardnerella vaginalis DNA; Abnormal Positive Negative A (test code = 6410-5) Grcae sp. DNA; Abnormal (test code Positive Negative A = 48924-4) [facility]] CULTURE, URINE, [id number] 09:20:01 Test Item Value Reference Range Interpretation Comments ORGANISM (test code = Escherichia coli 699-9) FINAL REPORT (test >100,000 CFU/mL code = FINAL REPORT) Escherichia coli 10,000 - 50,000 CFU/mL [facility][] [id number] 09:20:01 Test Item Value Reference Range Interpretation Comments ORGANISM (test code Escherichia coli = 699-9) Ciprofloxacin (test .75 S code = Ciprofloxacin) Levofloxacin (test 1.5 S code = Levofloxacin) Trimethoprim/Sulfame 32 R thoxazole (test code = Trimethoprim/Sulfame thoxazole) Ceftriaxone (test .094 S S= Suscept ible, code = Ceftriaxone) R= Resis tant, I= Intermediate, N/A= Not Applicable [facility]2017-02-20 20:20:00 Test Item Value Reference Range Interpretation Comments Eos BF (test code = Eos BF) 0 [facility]2017-02-20 20:20:00 Test Item Value Reference Range Interpretation Comments Macrophage BF (test code = Macrophage 0 BF) [facility]2017-02-20 20:20:00 Test Item Value Reference Range Interpretation Comments Color BF (test code = Yellow (04/01/16 2:20 Color BF) PM) [facility]2017-02-20 20:20:00 Test Item Value Reference Range Interpretation Comments CellCnt BF Type (test Other (04/01/16 2:20 code = CellCnt BF Type) PM) [facility]2017-02-20 20:20:00 Test Item Value Reference Range Interpretation Comments Clarity BF (test code = Slight Cloudy (04/01/16 Clarity BF) 2:20 PM) [facility]2017-02-20 20:20:00 Test Item Value Reference Range Interpretation Comments RBC BF (test code = RBC BF) 5375 [facility]2017-02-20 20:20:00 Test Item Value Reference Range Interpretation Comments WBC BF (test code = WBC BF) 980 [facility]2017-02-20 20:20:00 Test Item Value Reference Range Interpretation Comments Lymph BF (test code = Lymph BF) 44 [facility]2017-02-20 20:20:00 Test Item Value Reference Range Interpretation Comments Segs BF (test code = Segs BF) 56 [facility]2017-02-20 20:20:00 Test Item Value Reference Range Interpretation Comments Eos BF (test code = Eos BF) 0 [facility]2017-02-20 20:20:00 Test Item Value Reference Range Interpretation Comments Macrophage BF (test code = Macrophage 0 BF) [facility]2017-02-20 20:20:00 Test Item Value Reference Range Interpretation Comments Color BF (test code = Yellow (04/01/16 2:20 Color BF) PM) [facility]2017-02-20 20:20:00 Test Item Value Reference Range Interpretation Comments CellCnt BF Type (test Other (04/01/16 2:20 code = CellCnt BF Type) PM) [facility]2017-02-20 20:20:00 Test Item Value Reference Range Interpretation Comments Clarity BF (test code = Slight Cloudy (04/01/16 Clarity BF) 2:20 PM) [facility]2017-02-20 20:20:00 Test Item Value Reference Range Interpretation Comments RBC BF (test code = RBC BF) 5375 [facility]2017-02-20 20:20:00 Test Item Value Reference Range Interpretation Comments WBC BF (test code = WBC BF) 980 [facility]2017-02-20 20:20:00 Test Item Value Reference Range Interpretation Comments Lymph BF (test code = Lymph BF) 44 [facility] [facility]2017[facility] 20:20:00 Test Item Value Reference Range Interpretation Comments Segs BF (test code = Segs BF) 56 [facility]2017-02-20 20:20:00 Test Item Value Reference Range Interpretation Comments Eos BF (test code = Eos BF) 0 [facility]2017-02-20 20:20:00 Test Item Value Reference Range Interpretation Comments Macrophage BF (test code = Macrophage 0 BF) [facility]2017-02-20 20:20:00 Test Item Value Reference Range Interpretation Comments Color BF (test code = Yellow (04/01/16 2:20 Color BF) PM) [facility]2017-02-20 20:20:00 Test Item Value Reference Range Interpretation Comments CellCnt BF Type (test Other (04/01/16 2:20 code = CellCnt BF Type) PM) [facility]2017-02-20 20:20:00 Test Item Value Reference Range Interpretation Comments Clarity BF (test code = Slight Cloudy (04/01/16 Clarity BF) 2:20 PM) [facility]2017-02-20 20:20:00 Test Item Value Reference Range Interpretation Comments RBC BF (test code = RBC BF) 5375 [facility]2017-02-20 20:20:00 Test Item Value Reference Range Interpretation Comments WBC BF (test code = WBC BF) 980 [facility]2017-02-20 20:20:00 Test Item Value Reference Range Interpretation Comments Lymph BF (test code = Lymph BF) 44 [facility]2017-02-20 20:20:00 Test Item Value Reference Range Interpretation Comments Segs BF (test code = Segs BF) 56 [facility]2017-02-20 20:20:00 Test Item Value Reference Range Interpretation Comments Eos BF (test code = Eos BF) 0 [facility]2017-02-20 20:20:00 Test Item Value Reference Range Interpretation Comments Macrophage BF (test code = Macrophage 0 BF) [facility]2017-02-20 20:20:00 Test Item Value Reference Range Interpretation Comments Color BF (test code = Yellow (04/01/16 2:20 Color BF) PM) [facility]2017-02-20 20:20:00 Test Item Value Reference Range Interpretation Comments CellCnt BF Type (test Other (04/01/16 2:20 code = CellCnt BF Type) PM) [facility]2017-02-20 20:20:00 Test Item Value Reference Range Interpretation Comments Clarity BF (test code = Slight Cloudy (04/01/16 Clarity BF) 2:20 PM) [facility]2017-02-20 20:20:00 Test Item Value Reference Range Interpretation Comments RBC BF (test code = RBC BF) 5375 [facility]2017-02-20 20:20:00 Test Item Value Reference Range Interpretation Comments WBC BF (test code = WBC BF) 980 [facility]2017-02-20 20:20:00 Test Item Value Reference Range Interpretation Comments Lymph BF (test code = Lymph BF) 44 [facility]2017-02-20 20:20:00 Test Item Value Reference Range Interpretation Comments Segs BF (test code = Segs BF) 56 [facility]2017-02-20 20:20:00 Test Item Value Reference Range Interpretation Comments Eos BF (test code = Eos BF) 0 [facility]2017-02-20 20:20:00 Test Item Value Reference Range Interpretation Comments Macrophage BF (test code = Macrophage 0 BF) [facility]2017-02-20 20:20:00 Test Item Value Reference Range Interpretation Comments Color BF (test code = Yellow (04/01/16 2:20 Color BF) PM) [facility]2017-02-20 20:20:00 Test Item Value Reference Range Interpretation Comments CellCnt BF Type (test Other (04/01/16 2:20 code = CellCnt BF Type) PM) [facility]2017-02-20 20:20:00 Test Item Value Reference Range Interpretation Comments Clarity BF (test code = Slight Cloudy (04/01/16 Clarity BF) 2:20 PM) [facility]2017-02-20 20:20:00 Test Item Value Reference Range Interpretation Comments RBC BF (test code = RBC BF) 5375 [facility]2017-02-20 20:20:00 Test Item Value Reference Range Interpretation Comments WBC BF (test code = WBC BF) 980 [facility]2017-02-20 20:20:00 Test Item Value Reference Range Interpretation Comments Lymph BF (test code = Lymph BF) 44 [facility]2017-02-20 20:20:00 Test Item Value Reference Range Interpretation Comments Segs BF (test code = Segs BF) 56 [facility]kepdoqOFJGOXVWHC5742[facility] 19:10:00 Test Item Value Reference Range Interpretation Comments MCH (test code = MCH) 28.5 pg 27.0-31.0 [facility]JkwkshmRKAHVIMLIC8115-43-66 19:10:00 Test Item Value Reference Range Interpretation Comments RDW (test code = RDW) 14.8 11.5-14.5 [facility] HospitalZtoqnjsXZQJEOJMYQ7989-55-83 19:10:00 Test Item Value Reference Range Interpretation Comments MCHC (test code = MCHC) 33.2 32.0-36.0 [facility] HospitalShyojhyVJKSJWHGRF7635-09-76 19:10:00 Test Item Value Reference Range Interpretation Comments Hct (test code = Hct) 30.8 36.0-48.0 [facility] HospitalOxntfdhHOBJNXYNSS2579-40-76 19:10:00 Test Item Value Reference Range Interpretation Comments RBC (test code = RBC) 3.59 4.20-5.40 [facility] HospitalYdhforrNPCSKGOUBN2112-61-45 19:10:00 Test Item Value Reference Range Interpretation Comments Hgb (test code = Hgb) 10.2 12.0-16.0 [facility] HospitalKboejglGIHHSLJWQV6660-85-32 19:10:00 Test Item Value Reference Range Interpretation Comments MCV (test code = MCV) 85.9 80.0-98.0 [facility] HospitalMybreizKSVETCJLDP6612-17-41 19:10:00 Test Item Value Reference Range Interpretation Comments Eosinophils # (test code 0.1 See_Comment [A utomated message] The = Eosinophils #) system whic h generated this result tra nsmitted reference range : <=0.5. The reference r lv was not used to int erpret this result as normal/abnormal . [facility] HospitalHpmyfkfHFUWUCMHLJ3602-81-21 19:10:00 Test Item Value Reference Range Interpretation Comments Monocytes # (test code 0.4 See_Comment [Aut omated message] The = Monocytes #) system which generated this result tra nsmitted reference range : <=0.8. The reference r lv was not used to int erpret this result as normal/abnormal . [facility] HospitalIipttsdRWGAGULDLB8957-44-29 19:10:00 Test Item Value Reference Range Interpretation Comments Segs-Bands # (test code = Segs-Bands #) 4.0 1.5-8.1 [facility] HospitalZuzfjkyKEICULSXUR4736-95-02 19:10:00 Test Item Value Reference Range Interpretation Comments Lymphocytes # (test code = Lymphocytes 1.5 1.0-5.5 #) [facility] HospitalGjfygieEMHWUBKUTK1218-41-02 19:10:00 Test Item Value Reference Range Interpretation Comments Basophils # (test code 0.0 See_Comment [Aut omated message] The = Basophils #) system which generated this result tra nsmitted reference range : <=0.2. The reference r lv was not used to int erpret this result as normal/abnormal . [facility] HospitalSbloedhSFPLFBSKRS6577-31-53 19:10:00 Test Item Value Reference Range Interpretation Comments Lymphocytes (test code = Lymphocytes) 25.0 20.0-40.0 [facility] HospitalZhzngccMXPGZLSAMX1676-78-84 19:10:00 Test Item Value Reference Range Interpretation Comments Monocytes (test code = Monocytes) 6.9 2.0-12.0 [facility] HospitalYmdwdluKMICIKIAUA0735-24-93 19:10:00 Test Item Value Reference Range Interpretation Comments Segs (test code = Segs) 65.5 45.0-75.0 [facility] HospitalVuvzmrbGJZSQYCFQX9310-63-16 19:10:00 Test Item Value Reference Range Interpretation Comments Basophils (test code = 0.6 See_Comment [Aut omated message] The Basophils) system which ge nerated this result tra nsmitted reference range : <=1.0. The reference r lv was not used to int erpret this result as normal/abnormal . [facility] HospitalYvoeosuPDLGIGYXFK3037-10-74 19:10:00 Test Item Value Reference Range Interpretation Comments Eosinophils (test code = 2.0 See_Comment [A utomated message] The Eosinophils) system which ge nerated this result tra nsmitted reference range : <=4.0. The reference r lv was not used to int erpret this result as normal/abnormal . [facility] HospitalPyigesgYBSAEIWQHH4152-76-51 19:10:00 Test Item Value Reference Range Interpretation Comments WBC (test code = WBC) 6.1 3.7-10.4 [facility] HospitalWmerpvjAZVFVFUOSY0513-28-25 19:10:00 Test Item Value Reference Range Interpretation Comments MPV (test code = MPV) 7.9 7.4-10.4 [facility] HospitalCiapvajGBKIDOQUAG3565-65-38 19:10:00 Test Item Value Reference Range Interpretation Comments Platelet (test code = Platelet) 226 133-450 [facility] HospitalPnmiaewDLJFJLLWMD9393-59-50 19:10:00 Test Item Value Reference Range Interpretation Comments MCH (test code = MCH) 28.5 pg 27.0-31.0 [facility] HospitalGndpnhfVVEENMIVAT0461-07-12 19:10:00 Test Item Value Reference Range Interpretation Comments RDW (test code = RDW) 14.8 11.5-14.5 [facility] HospitalXvwuqvbOZBLDCSGIL1502-67-85 19:10:00 Test Item Value Reference Range Interpretation Comments MCHC (test code = MCHC) 33.2 32.0-36.0 [facility] HospitalJuwdvlrTMWBYMBUBJ1488-14-95 19:10:00 Test Item Value Reference Range Interpretation Comments Hct (test code = Hct) 30.8 36.0-48.0 [facility] HospitalPctxlqsQEELMNFSVD4224-35-31 19:10:00 Test Item Value Reference Range Interpretation Comments RBC (test code = RBC) 3.59 4.20-5.40 [facility] HospitalYukcwbpLJHVLPBLDJ9239-74-18 19:10:00 Test Item Value Reference Range Interpretation Comments Hgb (test code = Hgb) 10.2 12.0-16.0 [facility] HospitalHorlnkaMASUQNKEXE7192-41-38 19:10:00 Test Item Value Reference Range Interpretation Comments MCV (test code = MCV) 85.9 80.0-98.0 [facility] HospitalGklzrseHNWHWZZNEW9652-29-23 19:10:00 Test Item Value Reference Range Interpretation Comments Eosinophils # (test code 0.1 See_Comment [A utomated message] The = Eosinophils #) system whic h generated this result tra nsmitted reference range : <=0.5. The reference r lv was not used to int erpret this result as normal/abnormal . [facility] HospitalIvwqkqsLHNWJIBXZL4327-36-36 19:10:00 Test Item Value Reference Range Interpretation Comments Monocytes # (test code 0.4 See_Comment [Aut omated message] The = Monocytes #) system which generated this result tra nsmitted reference range : <=0.8. The reference r lv was not used to int erpret this result as normal/abnormal . [facility] HospitalUlwebrmYACPODAHXD9228-92-86 19:10:00 Test Item Value Reference Range Interpretation Comments Segs-Bands # (test code = Segs-Bands #) 4.0 1.5-8.1 [facility] HospitalQwjaglwBHHAPZJPMS1375-55-91 19:10:00 Test Item Value Reference Range Interpretation Comments Lymphocytes # (test code = Lymphocytes 1.5 1.0-5.5 #) [facility] HospitalKhzehpvEDAULTCBUU2170-79-29 19:10:00 Test Item Value Reference Range Interpretation Comments Basophils # (test code 0.0 See_Comment [Aut omated message] The = Basophils #) system which generated this result tra nsmitted reference range : <=0.2. The reference r lv was not used to int erpret this result as normal/abnormal . [facility] HospitalTmxwpuoWMNYVKDQBE6783-07-46 19:10:00 Test Item Value Reference Range Interpretation Comments Lymphocytes (test code = Lymphocytes) 25.0 20.0-40.0 [facility] HospitalQtfegeiBCBQBFWKSF8083-33-98 19:10:00 Test Item Value Reference Range Interpretation Comments Monocytes (test code = Monocytes) 6.9 2.0-12.0 [facility] HospitalAlwybdsDFUVLMWYZD9515-33-09 19:10:00 Test Item Value Reference Range Interpretation Comments Segs (test code = Segs) 65.5 45.0-75.0 [facility] HospitalDnrbrfqWMMTQSENUT4887-75-29 19:10:00 Test Item Value Reference Range Interpretation Comments Basophils (test code = 0.6 See_Comment [Aut omated message] The Basophils) system which ge nerated this result tra nsmitted reference range : <=1.0. The reference r lv was not used to int erpret this result as normal/abnormal . [facility] HospitalIfttvraWSJAXRFDEK5196-25-34 19:10:00 Test Item Value Reference Range Interpretation Comments Eosinophils (test code = 2.0 See_Comment [A utomated message] The Eosinophils) system which ge nerated this result tra nsmitted reference range : <=4.0. The reference r lv was not used to int erpret this result as normal/abnormal . [facility] HospitalGlmofrxZRWBPLPOFP0430-04-21 19:10:00 Test Item Value Reference Range Interpretation Comments WBC (test code = WBC) 6.1 3.7-10.4 [facility] HospitalXyzgmloOKHHAAAMBH8403-63-46 19:10:00 Test Item Value Reference Range Interpretation Comments MPV (test code = MPV) 7.9 7.4-10.4 [facility] HospitalJrjewrfWPJKOADYMZ5783-78-12 19:10:00 Test Item Value Reference Range Interpretation Comments Platelet (test code = Platelet) 226 133-450 [facility] HospitalTqwbhjrEALJTHOMAI6658-97-92 19:10:00 Test Item Value Reference Range Interpretation Comments MCH (test code = MCH) 28.5 pg 27.0-31.0 [facility] HospitalLgwfsnfIAENIVMLFL0760-13-72 19:10:00 Test Item Value Reference Range Interpretation Comments RDW (test code = RDW) 14.8 11.5-14.5 [facility] HospitalIvqbfvkRVWLKQDQLO4485-89-67 19:10:00 Test Item Value Reference Range Interpretation Comments MCHC (test code = MCHC) 33.2 32.0-36.0 [facility] HospitalLxyemfiUUUTHFVRQF9683-98-99 19:10:00 Test Item Value Reference Range Interpretation Comments Hct (test code = Hct) 30.8 36.0-48.0 [facility] HospitalYzmbvauOSOPZBSKFJ1412-18-50 19:10:00 Test Item Value Reference Range Interpretation Comments RBC (test code = RBC) 3.59 4.20-5.40 [facility] HospitalQbvfbafHHUDMAESVN8185-43-85 19:10:00 Test Item Value Reference Range Interpretation Comments Hgb (test code = Hgb) 10.2 12.0-16.0 [facility] HospitalMgsyfvfDHSGZTEAAA7646-43-99 19:10:00 Test Item Value Reference Range Interpretation Comments MCV (test code = MCV) 85.9 80.0-98.0 [facility] HospitalUnnlmqcKEFJUCPMXL6665-63-19 19:10:00 Test Item Value Reference Range Interpretation Comments Eosinophils # (test code 0.1 See_Comment [A utomated message] The = Eosinophils #) system whic h generated this result tra nsmitted reference range : <=0.5. The reference r lv was not used to int erpret this result as normal/abnormal . [facility] HospitalYpcfgbkQQFISKPUFA1730-32-18 19:10:00 Test Item Value Reference Range Interpretation Comments Monocytes # (test code 0.4 See_Comment [Aut omated message] The = Monocytes #) system which generated this result tra nsmitted reference range : <=0.8. The reference r lv was not used to int erpret this result as normal/abnormal . [facility] HospitalUxdwkcvVMDDADUOQI6987-24-04 19:10:00 Test Item Value Reference Range Interpretation Comments Segs-Bands # (test code = Segs-Bands #) 4.0 1.5-8.1 [facility] HospitalMpfdvdaXRBBIRVRXS9576-94-33 19:10:00 Test Item Value Reference Range Interpretation Comments Lymphocytes # (test code = Lymphocytes 1.5 1.0-5.5 #) [facility] HospitalOqyftaySZGUMLPKLB7252-01-62 19:10:00 Test Item Value Reference Range Interpretation Comments Basophils # (test code 0.0 See_Comment [Aut omated message] The = Basophils #) system which generated this result tra nsmitted reference range : <=0.2. The reference r lv was not used to int erpret this result as normal/abnormal . [facility] HospitalTmheqgkJGFQVTTAOI5061-21-65 19:10:00 Test Item Value Reference Range Interpretation Comments Lymphocytes (test code = Lymphocytes) 25.0 20.0-40.0 [facility] HospitalUczblwuSTVSBEPWIE0974-81-24 19:10:00 Test Item Value Reference Range Interpretation Comments Monocytes (test code = Monocytes) 6.9 2.0-12.0 [facility] HospitalZbdomvhJVYLMQYNSH3038-43-66 19:10:00 Test Item Value Reference Range Interpretation Comments Segs (test code = Segs) 65.5 45.0-75.0 [facility] HospitalOfybacySIDNXTTPGG3855-18-36 19:10:00 Test Item Value Reference Range Interpretation Comments Basophils (test code = 0.6 See_Comment [Aut omated message] The Basophils) system which ge nerated this result tra nsmitted reference range : <=1.0. The reference r lv was not used to int erpret this result as normal/abnormal . [facility] HospitalMtjmcscJKSLQECFLG0391-98-08 19:10:00 Test Item Value Reference Range Interpretation Comments Eosinophils (test code = 2.0 See_Comment [A utomated message] The Eosinophils) system which ge nerated this result tra nsmitted reference range : <=4.0. The reference r lv was not used to int erpret this result as normal/abnormal . [facility] HospitalCxbcfkfNVWYHHSSOB3446-06-07 19:10:00 Test Item Value Reference Range Interpretation Comments WBC (test code = WBC) 6.1 3.7-10.4 [facility] HospitalDtrhtvkYZXDRLKFFY5696-23-79 19:10:00 Test Item Value Reference Range Interpretation Comments MPV (test code = MPV) 7.9 7.4-10.4 [facility] HospitalLlzrrefFFNYXJXFDS9051-63-39 19:10:00 Test Item Value Reference Range Interpretation Comments Platelet (test code = Platelet) 226 133-450 [facility] HospitalCjlneprYAGMBUQTGC7184-35-43 19:10:00 Test Item Value Reference Range Interpretation Comments MCH (test code = MCH) 28.5 pg 27.0-31.0 [facility] HospitalWdpgvgoRNFBIJENAQ1241-11-80 19:10:00 Test Item Value Reference Range Interpretation Comments RDW (test code = RDW) 14.8 11.5-14.5 [facility] HospitalTzxgslzNQEIMWXIXH9644-34-68 19:10:00 Test Item Value Reference Range Interpretation Comments MCHC (test code = MCHC) 33.2 32.0-36.0 [facility] HospitalKfynvrgJGCHRODWMQ6251-41-91 19:10:00 Test Item Value Reference Range Interpretation Comments Hct (test code = Hct) 30.8 36.0-48.0 [facility] HospitalGcqnpufZMILXAKPFU9614-24-41 19:10:00 Test Item Value Reference Range Interpretation Comments RBC (test code = RBC) 3.59 4.20-5.40 [facility] HospitalQswfcocTIOZELWEAR2217-78-83 19:10:00 Test Item Value Reference Range Interpretation Comments Hgb (test code = Hgb) 10.2 12.0-16.0 [facility] HospitalCfpvrhvSPBHJWULWL1381-23-93 19:10:00 Test Item Value Reference Range Interpretation Comments MCV (test code = MCV) 85.9 80.0-98.0 [facility] HospitalQtdulwfGKUVGTLKHK7661-58-81 19:10:00 Test Item Value Reference Range Interpretation Comments Eosinophils # (test code 0.1 See_Comment [A utomated message] The = Eosinophils #) system whic h generated this result tra nsmitted reference range : <=0.5. The reference r lv was not used to int erpret this result as normal/abnormal . [facility] HospitalQcjhdefHCJZDFWRWZ4838-46-70 19:10:00 Test Item Value Reference Range Interpretation Comments Monocytes # (test code 0.4 See_Comment [Aut omated message] The = Monocytes #) system which generated this result tra nsmitted reference range : <=0.8. The reference r lv was not used to int erpret this result as normal/abnormal . [facility] HospitalSfqnfnyKBXSMMOMUK2587-38-16 19:10:00 Test Item Value Reference Range Interpretation Comments Segs-Bands # (test code = Segs-Bands #) 4.0 1.5-8.1 [facility] HospitalDysmsinRHJTZXLSAX6856-17-43 19:10:00 Test Item Value Reference Range Interpretation Comments Lymphocytes # (test code = Lymphocytes 1.5 1.0-5.5 #) [facility] HospitalPmpanmsCNGOLRIFIU7521-76-89 19:10:00 Test Item Value Reference Range Interpretation Comments Basophils # (test code 0.0 See_Comment [Aut omated message] The = Basophils #) system which generated this result tra nsmitted reference range : <=0.2. The reference r lv was not used to int erpret this result as normal/abnormal . [facility] HospitalGbpofphXBODNEPBEW2713-16-16 19:10:00 Test Item Value Reference Range Interpretation Comments Lymphocytes (test code = Lymphocytes) 25.0 20.0-40.0 [facility] HospitalDambenyKYYZFZOVBB9698-84-62 19:10:00 Test Item Value Reference Range Interpretation Comments Monocytes (test code = Monocytes) 6.9 2.0-12.0 [facility] HospitalHcsvwxbWQOWADFPBT4418-56-89 19:10:00 Test Item Value Reference Range Interpretation Comments Segs (test code = Segs) 65.5 45.0-75.0 [facility] HospitalNqcfphdLZUWBXJVXE9318-70-26 19:10:00 Test Item Value Reference Range Interpretation Comments Basophils (test code = 0.6 See_Comment [Aut omated message] The Basophils) system which ge nerated this result tra nsmitted reference range : <=1.0. The reference r lv was not used to int erpret this result as normal/abnormal . [facility] HospitalWcuakqbQLBZAKREBN7671-07-27 19:10:00 Test Item Value Reference Range Interpretation Comments Eosinophils (test code = 2.0 See_Comment [A utomated message] The Eosinophils) system which ge nerated this result tra nsmitted reference range : <=4.0. The reference r lv was not used to int erpret this result as normal/abnormal . [facility] HospitalNomqolvICCCVNOVPC5351-98-13 19:10:00 Test Item Value Reference Range Interpretation Comments WBC (test code = WBC) 6.1 3.7-10.4 [facility] HospitalBmdsxtsZVEYIYGUDM0138-79-82 19:10:00 Test Item Value Reference Range Interpretation Comments MPV (test code = MPV) 7.9 7.4-10.4 [facility] HospitalMesdfzfAWQDHXIHBB6701-32-25 19:10:00 Test Item Value Reference Range Interpretation Comments Platelet (test code = Platelet) 226 133-450 [facility] HospitalUuriibzHIBFHXVPMI9359-81-40 19:10:00 Test Item Value Reference Range Interpretation Comments MCH (test code = MCH) 28.5 pg 27.0-31.0 [facility] HospitalRiwbcvpRTEOYNPJBQ4035-27-65 19:10:00 Test Item Value Reference Range Interpretation Comments RDW (test code = RDW) 14.8 11.5-14.5 [facility] HospitalSblouizTWVEQYFKOF5495-50-51 19:10:00 Test Item Value Reference Range Interpretation Comments MCHC (test code = MCHC) 33.2 32.0-36.0 [facility] HospitalAzenmxeSXYLWPSEBF8187-70-93 19:10:00 Test Item Value Reference Range Interpretation Comments Hct (test code = Hct) 30.8 36.0-48.0 [facility] HospitalRwfnffvHTEEODEADG9903-93-21 19:10:00 Test Item Value Reference Range Interpretation Comments RBC (test code = RBC) 3.59 4.20-5.40 [facility] HospitalPewjmfcYOFBALIEHB7438-97-42 19:10:00 Test Item Value Reference Range Interpretation Comments Hgb (test code = Hgb) 10.2 12.0-16.0 [facility] HospitalPitssadNAFQZIHPTV0977-88-16 19:10:00 Test Item Value Reference Range Interpretation Comments MCV (test code = MCV) 85.9 80.0-98.0 [facility] HospitalWvkaqfgNELAXFUUHJ6153-29-38 19:10:00 Test Item Value Reference Range Interpretation Comments Eosinophils # (test code 0.1 See_Comment [A utomated message] The = Eosinophils #) system whic h generated this result tra nsmitted reference range : <=0.5. The reference r lv was not used to int erpret this result as normal/abnormal . [facility] HospitalObjvvgnNBRGFQSZQM4755-11-99 19:10:00 Test Item Value Reference Range Interpretation Comments Monocytes # (test code 0.4 See_Comment [Aut omated message] The = Monocytes #) system which generated this result tra nsmitted reference range : <=0.8. The reference r lv was not used to int erpret this result as normal/abnormal . [facility] HospitalEtcmdhhYNLWCMFTRM7654-19-83 19:10:00 Test Item Value Reference Range Interpretation Comments Segs-Bands # (test code = Segs-Bands #) 4.0 1.5-8.1 [facility] HospitalPuwreydUNEFZBMIWY4387-49-74 19:10:00 Test Item Value Reference Range Interpretation Comments Lymphocytes # (test code = Lymphocytes 1.5 1.0-5.5 #) [facility] HospitalZqphlpwJLMKULBQRL6849-73-98 19:10:00 Test Item Value Reference Range Interpretation Comments Basophils # (test code 0.0 See_Comment [Aut omated message] The = Basophils #) system which generated this result tra nsmitted reference range : <=0.2. The reference r lv was not used to int erpret this result as normal/abnormal . [id number] 19:10:00 Test Item Value Reference Range Interpretation Comments Lymphocytes (test code = Lymphocytes) 25.0 20.0-40.0 [id number] 19:10:00 Test Item Value Reference Range Interpretation Comments Monocytes (test code = Monocytes) 6.9 2.0-12.0 [facility]AlwvkrgTPCUOYZGUA5715-13-61 19:10:00 Test Item Value Reference Range Interpretation Comments Segs (test code = Segs) 65.5 45.0-75.0 [facility] H[id number] 19:10:00 Test Item Value Reference Range Interpretation Comments Basophils (test code = 0.6 See_Comment [Aut omated message] The Basophils) system which ge nerated this result tra nsmitted reference range : <=1.0. The reference r lv was not used to int erpret this result as normal/abnormal . [facility] HospitalKsnrkeeXBXUSERTQA6611-91-11 19:10:00 Test Item Value Reference Range Interpretation Comments Eosinophils (test code = 2.0 See_Comment [A utomated message] The Eosinophils) system which ge nerated this result tra nsmitted reference range : <=4.0. The reference r lv was not used to int erpret this result as normal/abnormal . [facility] HospitalTsgmxuvKDVLUTWXXS7100-12-69 19:10:00 Test Item Value Reference Range Interpretation Comments WBC (test code = WBC) 6.1 3.7-10.4 [facility] HospitalOjiusbpHBNKYWVWQR2193-65-66 19:10:00 Test Item Value Reference Range Interpretation Comments MPV (test code = MPV) 7.9 7.4-10.4 [facility] HospitalBmezqkhYGYIIRIUCU3791-45-86 19:10:00 Test Item Value Reference Range Interpretation Comments Platelet (test code = Platelet) 226 133-450 [facility] HospitalKpmosflZAUKRCWIMW3752-56-92 19:07:00 Test Item Value Reference Range Interpretation Comments Sed Rate (test code = 84 See_Comment [Auto mated message] The Sed Rate) system which ge nerated this result transmit neli reference range : <=20. The reference range was not used to interpr et this result as felipe l/abnormal. [facility] HospitalPvvrzfnDIBWKFTZKN1581-50-73 19:07:00 Test Item Value Reference Range Interpretation Comments Sed Rate (test code = 84 See_Comment [Auto mated message] The Sed Rate) system which ge nerated this result transmit neli reference range : <=20. The reference range was not used to interpr et this result as felipe l/abnormal. [facility] HospitalDwtcagaNGELKVCIQB0095-69-21 19:07:00 Test Item Value Reference Range Interpretation Comments Sed Rate (test code = 84 See_Comment [Auto mated message] The Sed Rate) system which ge nerated this result transmit neli reference range : <=20. The reference range was not used to interpr et this result as felipe l/abnormal. [facility] HospitalDyfygncIFKLXIVTOP9276-97-49 19:07:00 Test Item Value Reference Range Interpretation Comments Sed Rate (test code = 84 See_Comment [Auto mated message] The Sed Rate) system which ge nerated this result transmit neli reference range : <=20. The reference range was not used to interpr et this result as felipe l/abnormal. [facility] HospitalYwpprobGGZQGAFVHJ8171-26-34 19:07:00 Test Item Value Reference Range Interpretation Comments Sed Rate (test code = 84 See_Comment [Auto mated message] The Sed Rate) system which ge nerated this result transmit neli reference range : <=20. The reference range was not used to interpr et this result as felipe l/abnormal. [facility]2017-02-20 18:33:00 Test Item Value Reference Range Interpretation Comments Lactic Acid Lvl (test code = Lactic 1.3 0.5-2.2 Acid Lvl) [facility]2017-02-20 18:33:00 Test Item Value Reference Range Interpretation Comments eGFR (test code = eGFR) 91 [facility]2017-02-20 18:33:00 Test Item Value Reference Range Interpretation Comments B/C Ratio (test code = B/C Ratio) 19 6-25 [facility]2017-02-20 18:33:00 Test Item Value Reference Range Interpretation Comments A/G Ratio (test code = A/G Ratio) 0.6 0.7-1.6 [facility]2017-02-20 18:33:00 Test Item Value Reference Range Interpretation Comments Globulin (test code = Globulin) 4.7 2.7-4.2 [facility]2017-02-20 18:33:00 Test Item Value Reference Range Interpretation Comments AGAP (test code = AGAP) 12.0 10.0-20.0 [facility]2017-02-20 18:33:00 Test Item Value Reference Range Interpretation Comments Bili Total (test code = Bili Total) 0.2 0.2-1.3 [facility]2017-02-20 18:33:00 Test Item Value Reference Range Interpretation Comments Alk Phos (test code = Alk Phos) 116 39-136 [facility]2017-02-20 18:33:00 Test Item Value Reference Range Interpretation Comments CO2 (test code = CO2) 30 24-32 [facility]2017-02-20 18:33:00 Test Item Value Reference Range Interpretation Comments Chloride Lvl (test code = Chloride Lvl) 99 95-109 [facility]2017-02-20 18:33:00 Test Item Value Reference Range Interpretation Comments BUN (test code = BUN) 14 7-22 [facility]2017-02-20 18:33:00 Test Item Value Reference Range Interpretation Comments Glucose Lvl (test code = Glucose Lvl) 128 70-99 [facility]2017-02-20 18:33:00 Test Item Value Reference Range Interpretation Comments Creatinine Lvl (test code = Creatinine 0.74 0.50-1.40 Lvl) [facility]2017-02-20 18:33:00 Test Item Value Reference Range Interpretation Comments Potassium Lvl (test code = Potassium 5.0 3.5-5.1 Lvl) [facility]2017-02-20 18:33:00 Test Item Value Reference Range Interpretation Comments Sodium Lvl (test code = Sodium Lvl) 136 135-145 [facility]2017-02-20 18:33:00 Test Item Value Reference Range Interpretation Comments Total Protein (test code = Total 7.7 6.4-8.4 Protein) [facility]2017-02-20 18:33:00 Test Item Value Reference Range Interpretation Comments Calcium Lvl (test code = Calcium Lvl) 8.7 8.5-10.5 [facility]2017-02-20 18:33:00 Test Item Value Reference Range Interpretation Comments ALT (test code = ALT) 21 See_Comment [Auto mated message] The system which ge nerated this result transmit neli reference range : <=65. The reference range was not used to interpr et this result as felipe l/abnormal. [facility]2017-02-20 18:33:00 Test Item Value Reference Range Interpretation Comments Albumin Lvl (test code = Albumin Lvl) 3.0 3.5-5.0 [facility]2017-02-20 18:33:00 Test Item Value Reference Range Interpretation Comments AST (test code = AST) 27 See_Comment [Auto mated message] The system which ge nerated this result transmit neli reference range : <=37. The reference range was not used to interpr et this result as felipe l/abnormal. [facility] [id number] 18:33:00 Test Item Value Reference Range Interpretation Comments C-REACTIVE PROTEIN (test code = 44.4 C-REACTIVE PROTEIN) [facility]2017-02-20 18:33:00 Test Item Value Reference Range Interpretation Comments Lactic Acid Lvl (test code = Lactic 1.3 0.5-2.2 Acid Lvl) [facility]2017-02-20 18:33:00 Test Item Value Reference Range Interpretation Comments eGFR (test code = eGFR) 91 [facility]2017-02-20 18:33:00 Test Item Value Reference Range Interpretation Comments B/C Ratio (test code = B/C Ratio) 19 6-25 [facility]2017-02-20 18:33:00 Test Item Value Reference Range Interpretation Comments A/G Ratio (test code = A/G Ratio) 0.6 0.7-1.6 [facility]2017-02-20 18:33:00 Test Item Value Reference Range Interpretation Comments Globulin (test code = Globulin) 4.7 2.7-4.2 [facility]2017-02-20 18:33:00 Test Item Value Reference Range Interpretation Comments AGAP (test code = AGAP) 12.0 10.0-20.0 [facility]2017-02-20 18:33:00 Test Item Value Reference Range Interpretation Comments Bili Total (test code = Bili Total) 0.2 0.2-1.3 [facility]2017-02-20 18:33:00 Test Item Value Reference Range Interpretation Comments Alk Phos (test code = Alk Phos) 116 39-136 [facility]2017-02-20 18:33:00 Test Item Value Reference Range Interpretation Comments CO2 (test code = CO2) 30 24-32 [facility]2017-02-20 18:33:00 Test Item Value Reference Range Interpretation Comments Chloride Lvl (test code = Chloride Lvl) 99 95-109 [facility]2017-02-20 18:33:00 Test Item Value Reference Range Interpretation Comments BUN (test code = BUN) 14 7-22 [facility]2017-02-20 18:33:00 Test Item Value Reference Range Interpretation Comments Glucose Lvl (test code = Glucose Lvl) 128 70-99 [facility]2017-02-20 18:33:00 Test Item Value Reference Range Interpretation Comments Creatinine Lvl (test code = Creatinine 0.74 0.50-1.40 Lvl) [facility]2017-02-20 18:33:00 Test Item Value Reference Range Interpretation Comments Potassium Lvl (test code = Potassium 5.0 3.5-5.1 Lvl) [facility]2017-02-20 18:33:00 Test Item Value Reference Range Interpretation Comments Sodium Lvl (test code = Sodium Lvl) 136 135-145 [facility]2017-02-20 18:33:00 Test Item Value Reference Range Interpretation Comments Total Protein (test code = Total 7.7 6.4-8.4 Protein) [facility]2017-02-20 18:33:00 Test Item Value Reference Range Interpretation Comments Calcium Lvl (test code = Calcium Lvl) 8.7 8.5-10.5 [facility]2017-02-20 18:33:00 Test Item Value Reference Range Interpretation Comments Lactic Acid Lvl (test code = Lactic 1.3 0.5-2.2 Acid Lvl) [facility]2017-02-20 18:33:00 Test Item Value Reference Range Interpretation Comments ALT (test code = ALT) 21 See_Comment [Auto mated message] The system which ge nerated this result transmit neli reference range : <=65. The reference range was not used to interpr et this result as felipe l/abnormal. [facility] [id number] 18:33:00 Test Item Value Reference Range Interpretation Comments eGFR (test code = eGFR) 91 [facility] [id number] 18:33:00 Test Item Value Reference Range Interpretation Comments B/C Ratio (test code = B/C Ratio) 19 6-25 [facility] [id number] 18:33:00 Test Item Value Reference Range Interpretation Comments A/G Ratio (test code = A/G Ratio) 0.6 0.7-1.6 [facility] [id number] 18:33:00 Test Item Value Reference Range Interpretation Comments Globulin (test code = Globulin) 4.7 2.7-4.2 [facility] [id number] 18:33:00 Test Item Value Reference Range Interpretation Comments AGAP (test code = AGAP) 12.0 10.0-20.0 [facility] [id number] 18:33:00 Test Item Value Reference Range Interpretation Comments Bili Total (test code = Bili Total) 0.2 0.2-1.3 [facility] [id number] 18:33:00 Test Item Value Reference Range Interpretation Comments Alk Phos (test code = Alk Phos) 116 39-136 [facility] [id number] 18:33:00 Test Item Value Reference Range Interpretation Comments CO2 (test code = CO2) 30 24-32 [facility]2017-02-20 18:33:00 Test Item Value Reference Range Interpretation Comments Chloride Lvl (test code = Chloride Lvl) 99 95-109 [facility]2017-02-20 18:33:00 Test Item Value Reference Range Interpretation Comments BUN (test code = BUN) 14 7-22 [facility]2017-02-20 18:33:00 Test Item Value Reference Range Interpretation Comments Glucose Lvl (test code = Glucose Lvl) 128 70-99 [facility]2017-02-20 18:33:00 Test Item Value Reference Range Interpretation Comments Creatinine Lvl (test code = Creatinine 0.74 0.50-1.40 Lvl) [facility]2017-02-20 18:33:00 Test Item Value Reference Range Interpretation Comments Potassium Lvl (test code = Potassium 5.0 3.5-5.1 Lvl) [facility]2017-02-20 18:33:00 Test Item Value Reference Range Interpretation Comments Sodium Lvl (test code = Sodium Lvl) 136 135-145 [facility]2017-02-20 18:33:00 Test Item Value Reference Range Interpretation Comments Total Protein (test code = Total 7.7 6.4-8.4 Protein) [facility]2017-02-20 18:33:00 Test Item Value Reference Range Interpretation Comments Calcium Lvl (test code = Calcium Lvl) 8.7 8.5-10.5 [facility]2017-02-20 18:33:00 Test Item Value Reference Range Interpretation Comments ALT (test code = ALT) 21 See_Comment [Auto mated message] The system which ge nerated this result transmit neli reference range : <=65. The reference range was not used to interpr et this result as felipe l/abnormal. [facility]2017-02-20 18:33:00 Test Item Value Reference Range Interpretation Comments Albumin Lvl (test code = Albumin Lvl) 3.0 3.5-5.0 [facility]2017-02-20 18:33:00 Test Item Value Reference Range Interpretation Comments AST (test code = AST) 27 See_Comment [Auto mated message] The system which ge nerated this result transmit neli reference range : <=37. The reference range was not used to interpr et this result as felipe l/abnormal. [id number] 18:33:00 Test Item Value Reference Range Interpretation Comments C-REACTIVE PROTEIN (test code = 44.4 C-REACTIVE PROTEIN) [facility]2017-02-20 18:33:00 Test Item Value Reference Range Interpretation Comments Albumin Lvl (test code = Albumin Lvl) 3.0 3.5-5.0 [facility]2017-02-20 18:33:00 Test Item Value Reference Range Interpretation Comments AST (test code = AST) 27 See_Comment [Auto mated message] The system which ge nerated this result transmit neli reference range : <=37. The reference range was not used to interpr et this result as felipe l/abnormal. [id number] 18:33:00 Test Item Value Reference Range Interpretation Comments C-REACTIVE PROTEIN (test code = 44.4 C-REACTIVE PROTEIN) [facility]2017-02-20 18:33:00 Test Item Value Reference Range Interpretation Comments Lactic Acid Lvl (test code = Lactic 1.3 0.5-2.2 Acid Lvl) [facility]2017-02-20 18:33:00 Test Item Value Reference Range Interpretation Comments eGFR (test code = eGFR) 91 [facility]2017-02-20 18:33:00 Test Item Value Reference Range Interpretation Comments B/C Ratio (test code = B/C Ratio) 19 6-25 [facility]2017-02-20 18:33:00 Test Item Value Reference Range Interpretation Comments A/G Ratio (test code = A/G Ratio) 0.6 0.7-1.6 [facility]2017-02-20 18:33:00 Test Item Value Reference Range Interpretation Comments Globulin (test code = Globulin) 4.7 2.7-4.2 [facility]2017-02-20 18:33:00 Test Item Value Reference Range Interpretation Comments AGAP (test code = AGAP) 12.0 10.0-20.0 [facility]2017-02-20 18:33:00 Test Item Value Reference Range Interpretation Comments Bili Total (test code = Bili Total) 0.2 0.2-1.3 [facility]2017-02-20 18:33:00 Test Item Value Reference Range Interpretation Comments Alk Phos (test code = Alk Phos) 116 39-136 [facility]2017-02-20 18:33:00 Test Item Value Reference Range Interpretation Comments CO2 (test code = CO2) 30 24-32 [facility]2017-02-20 18:33:00 Test Item Value Reference Range Interpretation Comments Chloride Lvl (test code = Chloride Lvl) 99 95-109 [facility]2017-02-20 18:33:00 Test Item Value Reference Range Interpretation Comments BUN (test code = BUN) 14 7-22 [facility]2017-02-20 18:33:00 Test Item Value Reference Range Interpretation Comments Glucose Lvl (test code = Glucose Lvl) 128 70-99 [facility]2017-02-20 18:33:00 Test Item Value Reference Range Interpretation Comments Creatinine Lvl (test code = Creatinine 0.74 0.50-1.40 Lvl) [facility]2017-02-20 18:33:00 Test Item Value Reference Range Interpretation Comments Potassium Lvl (test code = Potassium 5.0 3.5-5.1 Lvl) [facility]2017-02-20 18:33:00 Test Item Value Reference Range Interpretation Comments Sodium Lvl (test code = Sodium Lvl) 136 135-145 [facility]2017-02-20 18:33:00 Test Item Value Reference Range Interpretation Comments Total Protein (test code = Total 7.7 6.4-8.4 Protein) [facility]2017-02-20 18:33:00 Test Item Value Reference Range Interpretation Comments Calcium Lvl (test code = Calcium Lvl) 8.7 8.5-10.5 [facility]2017-02-20 18:33:00 Test Item Value Reference Range Interpretation Comments ALT (test code = ALT) 21 See_Comment [Auto mated message] The system which ge nerated this result transmit neli reference range : <=65. The reference range was not used to interpr et this result as felipe l/abnormal. [facility]2017-02-20 18:33:00 Test Item Value Reference Range Interpretation Comments Albumin Lvl (test code = Albumin Lvl) 3.0 3.5-5.0 [facility]2017-02-20 18:33:00 Test Item Value Reference Range Interpretation Comments AST (test code = AST) 27 See_Comment [Auto mated message] The system which ge nerated this result transmit neli reference range : <=37. The reference range was not used to interpr et this result as felipe l/abnormal. [facility] [id number] 18:33:00 Test Item Value Reference Range Interpretation Comments C-REACTIVE PROTEIN (test code = 44.4 C-REACTIVE PROTEIN) [facility]2017-02-20 18:33:00 Test Item Value Reference Range Interpretation Comments Lactic Acid Lvl (test code = Lactic 1.3 0.5-2.2 Acid Lvl) [facility]2017-02-20 18:33:00 Test Item Value Reference Range Interpretation Comments eGFR (test code = eGFR) 91 [facility]2017-02-20 18:33:00 Test Item Value Reference Range Interpretation Comments B/C Ratio (test code = B/C Ratio) 19 6-25 [facility]2017-02-20 18:33:00 Test Item Value Reference Range Interpretation Comments A/G Ratio (test code = A/G Ratio) 0.6 0.7-1.6 [facility]2017-02-20 18:33:00 Test Item Value Reference Range Interpretation Comments Globulin (test code = Globulin) 4.7 2.7-4.2 [facility]2017-02-20 18:33:00 Test Item Value Reference Range Interpretation Comments AGAP (test code = AGAP) 12.0 10.0-20.0 [facility]2017-02-20 18:33:00 Test Item Value Reference Range Interpretation Comments Bili Total (test code = Bili Total) 0.2 0.2-1.3 [facility]2017-02-20 18:33:00 Test Item Value Reference Range Interpretation Comments Alk Phos (test code = Alk Phos) 116 39-136 [facility]2017-02-20 18:33:00 Test Item Value Reference Range Interpretation Comments CO2 (test code = CO2) 30 24-32 [facility]2017-02-20 18:33:00 Test Item Value Reference Range Interpretation Comments Chloride Lvl (test code = Chloride Lvl) 99 95-109 [facility]2017-02-20 18:33:00 Test Item Value Reference Range Interpretation Comments BUN (test code = BUN) 14 7-22 [facility]2017-02-20 18:33:00 Test Item Value Reference Range Interpretation Comments Glucose Lvl (test code = Glucose Lvl) 128 70-99 [facility]2017-02-20 18:33:00 Test Item Value Reference Range Interpretation Comments Creatinine Lvl (test code = Creatinine 0.74 0.50-1.40 Lvl) [facility]2017-02-20 18:33:00 Test Item Value Reference Range Interpretation Comments Potassium Lvl (test code = Potassium 5.0 3.5-5.1 Lvl) [facility]2017-02-20 18:33:00 Test Item Value Reference Range Interpretation Comments Sodium Lvl (test code = Sodium Lvl) 136 135-145 [facility]2017-02-20 18:33:00 Test Item Value Reference Range Interpretation Comments Total Protein (test code = Total 7.7 6.4-8.4 Protein) [facility]2017-02-20 18:33:00 Test Item Value Reference Range Interpretation Comments Calcium Lvl (test code = Calcium Lvl) 8.7 8.5-10.5 [facility]2017-02-20 18:33:00 Test Item Value Reference Range Interpretation Comments ALT (test code = ALT) 21 See_Comment [Auto mated message] The system which ge nerated this result transmit neli reference range : <=65. The reference range was not used to interpr et this result as felipe l/abnormal. [facility]2017-02-20 18:33:00 Test Item Value Reference Range Interpretation Comments Albumin Lvl (test code = Albumin Lvl) 3.0 3.5-5.0 [facility]2017-02-20 18:33:00 Test Item Value Reference Range Interpretation Comments AST (test code = AST) 27 See_Comment [Auto mated message] The system which ge nerated this result transmit neli reference range : <=37. The reference range was not used to interpr et this result as felipe l/abnormal. [facility] Cent[id number] 18:33:00 Test Item Value Reference Range Interpretation Comments C-REACTIVE PROTEIN (test code = 44.4 C-REACTIVE PROTEIN) [facility]2016-06-23 14:38:00 Test Item Value Reference Range Interpretation Comments eGFR (test code = eGFR) 79 [facility]2016-06-23 14:38:00 Test Item Value Reference Range Interpretation Comments Sodium Lvl (test code = Sodium Lvl) 144 135-145 [facility]2016-06-23 14:38:00 Test Item Value Reference Range Interpretation Comments Chloride Lvl (test code = Chloride Lvl) 104 95-109 [facility]2016-06-23 14:38:00 Test Item Value Reference Range Interpretation Comments Potassium Lvl (test code = Potassium 4.6 3.5-5.1 Lvl) [facility]2016-06-23 14:38:00 Test Item Value Reference Range Interpretation Comments Calcium Lvl (test code = Calcium Lvl) 9.4 8.5-10.5 [facility] [place]2016-06-23 14:38:00 Test Item Value Reference Range Interpretation Comments CO2 (test code = CO2) 31 24-32 [facility] [place]2016-06-23 14:38:00 Test Item Value Reference Range Interpretation Comments Glucose Lvl (test code = Glucose Lvl) 126 70-99 [facility] [place]2016-06-23 14:38:00 Test Item Value Reference Range Interpretation Comments Creatinine Lvl (test code = Creatinine 0.84 0.50-1.40 Lvl) [facility] [place]2016-06-23 14:38:00 Test Item Value Reference Range Interpretation Comments BUN (test code = BUN) 17 7-22 [facility] [place]2016-06-23 14:38:00 Test Item Value Reference Range Interpretation Comments AGAP (test code = AGAP) 13.6 10.0-20.0 [facility]UdocxbuPTFWVSFCID5206-22-44 14:38:00 Test Item Value Reference Range Interpretation Comments MCH (test code = MCH) 28.8 pg 27.0-31.0 [facility] HospitalBnhbeilFWRHCDJXNU1263-35-90 14:38:00 Test Item Value Reference Range Interpretation Comments Hgb (test code = Hgb) 12.1 12.0-16.0 [facility] HospitalOvvssavBOBAUKPSLF3333-90-59 14:38:00 Test Item Value Reference Range Interpretation Comments RBC (test code = RBC) 4.20 4.20-5.40 [facility] HospitalQfchyopXFYXKSDPEZ2693-09-91 14:38:00 Test Item Value Reference Range Interpretation Comments MCV (test code = MCV) 89.2 80.0-98.0 [facility] HospitalYutlmdmHKRZLUPYQN3468-07-57 14:38:00 Test Item Value Reference Range Interpretation Comments Hct (test code = Hct) 37.5 36.0-48.0 [facility] HospitalMrzlzlgRSEVRPDCME4036-95-98 14:38:00 Test Item Value Reference Range Interpretation Comments WBC (test code = WBC) 7.4 3.7-10.4 [facility] HospitalMczragxCNXOYWHTEJ8035-32-72 14:38:00 Test Item Value Reference Range Interpretation Comments MCHC (test code = MCHC) 32.3 32.0-36.0 [facility] HospitalKjeeoxbUXLFWSNANX4625-39-95 14:38:00 Test Item Value Reference Range Interpretation Comments RDW (test code = RDW) 14.3 11.5-14.5 [facility] HospitalRprpafgKQRPSSALOW2167-53-19 14:38:00 Test Item Value Reference Range Interpretation Comments MPV (test code = MPV) 9.3 7.4-10.4 [facility] HospitalAouytutYQVQUKYXKB5910-62-19 14:38:00 Test Item Value Reference Range Interpretation Comments Platelet (test code = Platelet) 193 133-450 [facility] HospitalIylkohrIQWEPBUGDQ1051-62-67 14:38:00 Test Item Value Reference Range Interpretation Comments Basophils # (test code 0.0 See_Comment [Aut omated message] The = Basophils #) system which generated this result tra nsmitted reference range : <=0.2. The reference r lv was not used to int erpret this result as normal/abnormal . [facility] HospitalIbepdgxYQSPYVYNNJ3740-55-10 14:38:00 Test Item Value Reference Range Interpretation Comments Segs (test code = Segs) 61.4 45.0-75.0 [facility] HospitalPuxhdvhNVLTWCNUOO7410-56-53 14:38:00 Test Item Value Reference Range Interpretation Comments Lymphocytes (test code = Lymphocytes) 30.9 20.0-40.0 [facility] HospitalBhxcwipIEOQADWLAC0940-84-12 14:38:00 Test Item Value Reference Range Interpretation Comments Lymphocytes # (test code = Lymphocytes 2.3 1.0-5.5 #) [facility] HospitalHsijwtnULYHXHFOZT3150-11-16 14:38:00 Test Item Value Reference Range Interpretation Comments Monocytes # (test code 0.4 See_Comment [Aut omated message] The = Monocytes #) system which generated this result tra nsmitted reference range : <=0.8. The reference r lv was not used to int erpret this result as normal/abnormal . [facility] HospitalCkhvgevHBKICZVJAQ4957-18-08 14:38:00 Test Item Value Reference Range Interpretation Comments Segs-Bands # (test code = Segs-Bands #) 4.5 1.5-8.1 [facility] HospitalXiirahzTLWKJAVIIX2720-18-25 14:38:00 Test Item Value Reference Range Interpretation Comments Basophils (test code = 0.5 See_Comment [Aut omated message] The Basophils) system which ge nerated this result tra nsmitted reference range : <=1.0. The reference r lv was not used to int erpret this result as normal/abnormal . [facility] HospitalDsbcptaVFDTNFCAFP5826-74-14 14:38:00 Test Item Value Reference Range Interpretation Comments Monocytes (test code = Monocytes) 5.8 2.0-12.0 [facility] HospitalIufiksbKARZHVBWVP8195-29-49 14:38:00 Test Item Value Reference Range Interpretation Comments Eosinophils (test code = 1.4 See_Comment [A utomated message] The Eosinophils) system which ge nerated this result tra nsmitted reference range : <=4.0. The reference r lv was not used to int erpret this result as normal/abnormal . [facility] HospitalHmbuvndMDZGUACUJR1485-53-66 14:38:00 Test Item Value Reference Range Interpretation Comments Eosinophils # (test code 0.1 See_Comment [A utomated message] The = Eosinophils #) system whic h generated this result tra nsmitted reference range : <=0.5. The reference r lv was not used to int erpret this result as normal/abnormal . [facility]CfelyloEYAUUMJXSH8518-05-09 14:38:00 Test Item Value Reference Range Interpretation Comments HIV 1/2 Ab (test code Negative *NA*(08/03/15 = HIV 1/2 Ab) 9:38 AM) [facility]keolhqNBMUGTFEIE6640-23-53 14:38:00 Test Item Value Reference Range Interpretation Comments Hep C Ab (test code = Negative *NA*(08/03/15 Hep C Ab) 9:38 AM) [facility] HospitalKrtzsvrEOERCZQPCN4327-08-42 14:38:00 Test Item Value Reference Range Interpretation Comments Segs-Bands # (test code = Segs-Bands #) 4.5 1.5-8.1 [facility] HospitalOrlkjshYUIRHRWBCB1961-71-51 14:38:00 Test Item Value Reference Range Interpretation Comments Basophils (test code = 0.5 See_Comment [Aut omated message] The Basophils) system which ge nerated this result tra nsmitted reference range : <=1.0. The reference r lv was not used to int erpret this result as normal/abnormal . [facility] HospitalVmrpszyGOGRVJCGVU3192-73-44 14:38:00 Test Item Value Reference Range Interpretation Comments Monocytes (test code = Monocytes) 5.8 2.0-12.0 [facility] HospitalLspyhpxHFSWIHICDN9819-39-28 14:38:00 Test Item Value Reference Range Interpretation Comments Eosinophils (test code = 1.4 See_Comment [A utomated message] The Eosinophils) system which ge nerated this result tra nsmitted reference range : <=4.0. The reference r lv was not used to int erpret this result as normal/abnormal . [facility] HospitalGxyxugtLPOLFPHGCS7051-29-19 14:38:00 Test Item Value Reference Range Interpretation Comments Eosinophils # (test code 0.1 See_Comment [A utomated message] The = Eosinophils #) system whic h generated this result tra nsmitted reference range : <=0.5. The reference r lv was not used to int erpret this result as normal/abnormal . [facility] CenterKvowyjeWXARNILYXU6932-33-66 14:38:00 Test Item Value Reference Range Interpretation Comments HIV 1/2 Ab (test code Negative *NA*(08/03/15 = HIV 1/2 Ab) 9:38 AM) [facility] CenterRkfgrewFDNYLHYHIW1056-48-92 14:38:00 Test Item Value Reference Range Interpretation Comments Hep C Ab (test code = Negative *NA*(08/03/15 Hep C Ab) 9:38 AM) [facility] [place]2016-06-23 14:38:00 Test Item Value Reference Range Interpretation Comments eGFR (test code = eGFR) 79 [facility] [place]2016-06-23 14:38:00 Test Item Value Reference Range Interpretation Comments Sodium Lvl (test code = Sodium Lvl) 144 135-145 [facility] [place]2016-06-23 14:38:00 Test Item Value Reference Range Interpretation Comments Chloride Lvl (test code = Chloride Lvl) 104 95-109 [facility] [place]2016-06-23 14:38:00 Test Item Value Reference Range Interpretation Comments Potassium Lvl (test code = Potassium 4.6 3.5-5.1 Lvl) [facility] [place]2016-06-23 14:38:00 Test Item Value Reference Range Interpretation Comments Calcium Lvl (test code = Calcium Lvl) 9.4 8.5-10.5 [facility] [place]2016-06-23 14:38:00 Test Item Value Reference Range Interpretation Comments CO2 (test code = CO2) 31 24-32 [facility] [place]2016-06-23 14:38:00 Test Item Value Reference Range Interpretation Comments Glucose Lvl (test code = Glucose Lvl) 126 70-99 [facility] [place]2016-06-23 14:38:00 Test Item Value Reference Range Interpretation Comments Creatinine Lvl (test code = Creatinine 0.84 0.50-1.40 Lvl) [facility] [place]2016-06-23 14:38:00 Test Item Value Reference Range Interpretation Comments BUN (test code = BUN) 17 7-22 [facility] [place]2016-06-23 14:38:00 Test Item Value Reference Range Interpretation Comments AGAP (test code = AGAP) 13.6 10.0-20.0 [facility] HospitalMgztdaiHYREJJDMWU7153-02-10 14:38:00 Test Item Value Reference Range Interpretation Comments MCH (test code = MCH) 28.8 pg 27.0-31.0 [facility] HospitalBexnvcnRIQDOZNOMG2604-74-40 14:38:00 Test Item Value Reference Range Interpretation Comments Hgb (test code = Hgb) 12.1 12.0-16.0 [facility] HospitalOknvvkbTXHOQHTYQH7281-49-88 14:38:00 Test Item Value Reference Range Interpretation Comments RBC (test code = RBC) 4.20 4.20-5.40 [facility] HospitalBvsdkwuLCIYLHNPOF6667-88-70 14:38:00 Test Item Value Reference Range Interpretation Comments MCV (test code = MCV) 89.2 80.0-98.0 [facility] HospitalBkqzvidOTNMFSKGZU3159-19-14 14:38:00 Test Item Value Reference Range Interpretation Comments Hct (test code = Hct) 37.5 36.0-48.0 [facility] HospitalYcsrflvYHWYHRZWGQ4041-09-58 14:38:00 Test Item Value Reference Range Interpretation Comments WBC (test code = WBC) 7.4 3.7-10.4 [facility] HospitalZmfrtzdRPYHBICSGC6545-05-97 14:38:00 Test Item Value Reference Range Interpretation Comments MCHC (test code = MCHC) 32.3 32.0-36.0 [facility] HospitalRbvdyeaFGBQCXTMHK9273-18-71 14:38:00 Test Item Value Reference Range Interpretation Comments RDW (test code = RDW) 14.3 11.5-14.5 [facility] HospitalHpplwpfLOXSFRYWED7840-13-26 14:38:00 Test Item Value Reference Range Interpretation Comments MPV (test code = MPV) 9.3 7.4-10.4 [facility] HospitalMohqdgcHXDEXLGGGY2191-57-00 14:38:00 Test Item Value Reference Range Interpretation Comments Platelet (test code = Platelet) 193 133-450 [facility] HospitalFcjfaitWXUXNZXHLM4964-41-84 14:38:00 Test Item Value Reference Range Interpretation Comments Basophils # (test code 0.0 See_Comment [Aut omated message] The = Basophils #) system which generated this result tra nsmitted reference range : <=0.2. The reference r lv was not used to int erpret this result as normal/abnormal . [facility] HospitalDgsiqjmXFSMDBSICE8516-93-13 14:38:00 Test Item Value Reference Range Interpretation Comments Segs (test code = Segs) 61.4 45.0-75.0 [facility] HospitalEsscgabXTSUUYEMBJ4746-56-03 14:38:00 Test Item Value Reference Range Interpretation Comments Lymphocytes (test code = Lymphocytes) 30.9 20.0-40.0 [facility] HospitalYmzxnkbNVNVGKTMBT6698-98-99 14:38:00 Test Item Value Reference Range Interpretation Comments Lymphocytes # (test code = Lymphocytes 2.3 1.0-5.5 #) [facility] HospitalXzcggqgXRFZVDHEDY1074-56-42 14:38:00 Test Item Value Reference Range Interpretation Comments Monocytes # (test code 0.4 See_Comment [Aut omated message] The = Monocytes #) system which generated this result tra nsmitted reference range : <=0.8. The reference r lv was not used to int erpret this result as normal/abnormal . [facility] HospitalNvnjaaxDMOEFJBRPT1366-42-12 14:38:00 Test Item Value Reference Range Interpretation Comments Segs-Bands # (test code = Segs-Bands #) 4.5 1.5-8.1 [facility] HospitalKrthhmvRJGBRZRIDW3118-63-17 14:38:00 Test Item Value Reference Range Interpretation Comments Basophils (test code = 0.5 See_Comment [Aut omated message] The Basophils) system which ge nerated this result tra nsmitted reference range : <=1.0. The reference r lv was not used to int erpret this result as normal/abnormal . [facility] HospitalJvblgziQUTBAIMSZC9594-25-53 14:38:00 Test Item Value Reference Range Interpretation Comments Monocytes (test code = Monocytes) 5.8 2.0-12.0 [facility] HospitalIrxmwdhMBBOTLIMWB7387-83-23 14:38:00 Test Item Value Reference Range Interpretation Comments Eosinophils (test code = 1.4 See_Comment [A utomated message] The Eosinophils) system which ge nerated this result tra nsmitted reference range : <=4.0. The reference r lv was not used to int erpret this result as normal/abnormal . [facility] HospitalKpvxufmMBGQXOCFYA2327-82-56 14:38:00 Test Item Value Reference Range Interpretation Comments Eosinophils # (test code 0.1 See_Comment [A utomated message] The = Eosinophils #) system whic h generated this result tra nsmitted reference range : <=0.5. The reference r lv was not used to int erpret this result as normal/abnormal . [facility] CenterMownclpLUQSSBITXH4916-31-70 14:38:00 Test Item Value Reference Range Interpretation Comments HIV 1/2 Ab (test code Negative *NA*(08/03/15 = HIV 1/2 Ab) 9:38 AM) [facility] CenterEvsjhnjPDMXSCUKFJ0329-41-56 14:38:00 Test Item Value Reference Range Interpretation Comments Hep C Ab (test code = Negative *NA*(08/03/15 Hep C Ab) 9:38 AM) [facility] [place]2016-06-23 14:38:00 Test Item Value Reference Range Interpretation Comments eGFR (test code = eGFR) 79 [facility] [place]2016-06-23 14:38:00 Test Item Value Reference Range Interpretation Comments Sodium Lvl (test code = Sodium Lvl) 144 135-145 [facility] [place]2016-06-23 14:38:00 Test Item Value Reference Range Interpretation Comments Chloride Lvl (test code = Chloride Lvl) 104 95-109 [facility] [place]2016-06-23 14:38:00 Test Item Value Reference Range Interpretation Comments Potassium Lvl (test code = Potassium 4.6 3.5-5.1 Lvl) [facility] [place]2016-06-23 14:38:00 Test Item Value Reference Range Interpretation Comments Calcium Lvl (test code = Calcium Lvl) 9.4 8.5-10.5 [facility] [place]2016-06-23 14:38:00 Test Item Value Reference Range Interpretation Comments CO2 (test code = CO2) 31 24-32 [facility] [place]2016-06-23 14:38:00 Test Item Value Reference Range Interpretation Comments Glucose Lvl (test code = Glucose Lvl) 126 70-99 [facility] [place]2016-06-23 14:38:00 Test Item Value Reference Range Interpretation Comments Creatinine Lvl (test code = Creatinine 0.84 0.50-1.40 Lvl) [facility] [place]2016-06-23 14:38:00 Test Item Value Reference Range Interpretation Comments BUN (test code = BUN) 17 7-22 [facility] [place]2016-06-23 14:38:00 Test Item Value Reference Range Interpretation Comments AGAP (test code = AGAP) 13.6 10.0-20.0 [facility] HospitalTfwlmbaBMKINJFKIU0276-27-75 14:38:00 Test Item Value Reference Range Interpretation Comments MCH (test code = MCH) 28.8 pg 27.0-31.0 [facility] HospitalVjciilwSHMTQBDRIZ5035-78-95 14:38:00 Test Item Value Reference Range Interpretation Comments Hgb (test code = Hgb) 12.1 12.0-16.0 [facility] HospitalOztzfnhVVEBOVGBAM5729-10-87 14:38:00 Test Item Value Reference Range Interpretation Comments RBC (test code = RBC) 4.20 4.20-5.40 [facility] HospitalNdvbjjfNTXVXMULVW2231-11-32 14:38:00 Test Item Value Reference Range Interpretation Comments MCV (test code = MCV) 89.2 80.0-98.0 [facility] HospitalCfktzcqOXFYZFLURR5517-99-23 14:38:00 Test Item Value Reference Range Interpretation Comments Hct (test code = Hct) 37.5 36.0-48.0 [facility] HospitalJdxgrcxAZOJGGEEDA0641-96-69 14:38:00 Test Item Value Reference Range Interpretation Comments WBC (test code = WBC) 7.4 3.7-10.4 [facility] HospitalCiqjcamJDBIAFYSJA2758-23-30 14:38:00 Test Item Value Reference Range Interpretation Comments MCHC (test code = MCHC) 32.3 32.0-36.0 [facility] HospitalRhbnzzyLIZOVSNWKA7380-37-85 14:38:00 Test Item Value Reference Range Interpretation Comments RDW (test code = RDW) 14.3 11.5-14.5 [facility] HospitalEfwaoksJIDUWWXGQW2871-76-18 14:38:00 Test Item Value Reference Range Interpretation Comments MPV (test code = MPV) 9.3 7.4-10.4 [facility] HospitalBarskiuLPGSGWPHZW2848-44-98 14:38:00 Test Item Value Reference Range Interpretation Comments Platelet (test code = Platelet) 193 133-450 [facility] HospitalKnumgtbLUGHLQYUFP5038-88-47 14:38:00 Test Item Value Reference Range Interpretation Comments Basophils # (test code 0.0 See_Comment [Aut omated message] The = Basophils #) system which generated this result tra nsmitted reference range : <=0.2. The reference r lv was not used to int erpret this result as normal/abnormal . [facility] HospitalZuoxnqxYLXMGVSQLA6040-60-45 14:38:00 Test Item Value Reference Range Interpretation Comments Segs (test code = Segs) 61.4 45.0-75.0 [facility] HospitalIjefjhzKRZREMHSHH4272-50-18 14:38:00 Test Item Value Reference Range Interpretation Comments Lymphocytes (test code = Lymphocytes) 30.9 20.0-40.0 [facility] HospitalOiwoeqsPJWOROTWVM3491-90-68 14:38:00 Test Item Value Reference Range Interpretation Comments Lymphocytes # (test code = Lymphocytes 2.3 1.0-5.5 #) [facility] HospitalZozcgzwRHTWTPPWSP0452-13-41 14:38:00 Test Item Value Reference Range Interpretation Comments Monocytes # (test code 0.4 See_Comment [Aut omated message] The = Monocytes #) system which generated this result tra nsmitted reference range : <=0.8. The reference r lv was not used to int erpret this result as normal/abnormal . [facility] HospitalAycgwcbUCXGFNPXXW3250-27-04 14:38:00 Test Item Value Reference Range Interpretation Comments Segs-Bands # (test code = Segs-Bands #) 4.5 1.5-8.1 [facility] HospitalLrnnobsROYCKRYNDY9023-94-80 14:38:00 Test Item Value Reference Range Interpretation Comments Basophils (test code = 0.5 See_Comment [Aut omated message] The Basophils) system which ge nerated this result tra nsmitted reference range : <=1.0. The reference r lv was not used to int erpret this result as normal/abnormal . [facility] HospitalNgudgvvWKCSGCWQYN3566-75-48 14:38:00 Test Item Value Reference Range Interpretation Comments Monocytes (test code = Monocytes) 5.8 2.0-12.0 [facility] HospitalPkrjnpwXMHTZCUGYU3580-71-15 14:38:00 Test Item Value Reference Range Interpretation Comments Eosinophils (test code = 1.4 See_Comment [A utomated message] The Eosinophils) system which ge nerated this result tra nsmitted reference range : <=4.0. The reference r lv was not used to int erpret this result as normal/abnormal . [facility] HospitalDtrqcpyCSHSLYMKRH9687-46-16 14:38:00 Test Item Value Reference Range Interpretation Comments Eosinophils # (test code 0.1 See_Comment [A utomated message] The = Eosinophils #) system whic h generated this result tra nsmitted reference range : <=0.5. The reference r lv was not used to int erpret this result as normal/abnormal . [facility]QphqxnaHCQHTJAXTI2968-26-45 14:38:00 Test Item Value Reference Range Interpretation Comments HIV 1/2 Ab (test code Negative *NA*(08/03/15 = HIV 1/2 Ab) 9:38 AM) [facility] CenterIrcqeqcSVIVCNLYCP0362-81-22 14:38:00 Test Item Value Reference Range Interpretation Comments Hep C Ab (test code = Negative *NA*(08/03/15 Hep C Ab) 9:38 AM) [facility] [place]2016-06-23 14:38:00 Test Item Value Reference Range Interpretation Comments eGFR (test code = eGFR) 79 [facility] [place]2016-06-23 14:38:00 Test Item Value Reference Range Interpretation Comments Sodium Lvl (test code = Sodium Lvl) 144 135-145 [facility] [place]2016-06-23 14:38:00 Test Item Value Reference Range Interpretation Comments Chloride Lvl (test code = Chloride Lvl) 104 95-109 [facility] [place]2016-06-23 14:38:00 Test Item Value Reference Range Interpretation Comments Potassium Lvl (test code = Potassium 4.6 3.5-5.1 Lvl) [facility] [place]2016-06-23 14:38:00 Test Item Value Reference Range Interpretation Comments Calcium Lvl (test code = Calcium Lvl) 9.4 8.5-10.5 [facility] [place]2016-06-23 14:38:00 Test Item Value Reference Range Interpretation Comments CO2 (test code = CO2) 31 24-32 [facility] [place]2016-06-23 14:38:00 Test Item Value Reference Range Interpretation Comments Glucose Lvl (test code = Glucose Lvl) 126 70-99 [facility] [place]2016-06-23 14:38:00 Test Item Value Reference Range Interpretation Comments Creatinine Lvl (test code = Creatinine 0.84 0.50-1.40 Lvl) [facility] [place]2016-06-23 14:38:00 Test Item Value Reference Range Interpretation Comments BUN (test code = BUN) 17 7-22 [facility] [place]2016-06-23 14:38:00 Test Item Value Reference Range Interpretation Comments AGAP (test code = AGAP) 13.6 10.0-20.0 [facility] HospitalJzqmarlZSLQTXZCMB7460-71-87 14:38:00 Test Item Value Reference Range Interpretation Comments MCH (test code = MCH) 28.8 pg 27.0-31.0 [facility] HospitalZdvugieSPOIFTNWXC5300-30-95 14:38:00 Test Item Value Reference Range Interpretation Comments Hgb (test code = Hgb) 12.1 12.0-16.0 [facility] HospitalHdoaanrPCTKUPFZSE8732-77-58 14:38:00 Test Item Value Reference Range Interpretation Comments RBC (test code = RBC) 4.20 4.20-5.40 [facility] HospitalSykfovtILWDJWBSIN6048-03-42 14:38:00 Test Item Value Reference Range Interpretation Comments MCV (test code = MCV) 89.2 80.0-98.0 [facility] HospitalCghtuibKAONLWVFYG1610-60-10 14:38:00 Test Item Value Reference Range Interpretation Comments Hct (test code = Hct) 37.5 36.0-48.0 [facility] HospitalLzuymbmKLVCPSXRSD6317-66-54 14:38:00 Test Item Value Reference Range Interpretation Comments WBC (test code = WBC) 7.4 3.7-10.4 [facility] HospitalXucdjxoIGPFQNGSXO1048-01-09 14:38:00 Test Item Value Reference Range Interpretation Comments MCHC (test code = MCHC) 32.3 32.0-36.0 [facility] HospitalQnhqcyqWKGWBJSNUB8667-74-41 14:38:00 Test Item Value Reference Range Interpretation Comments RDW (test code = RDW) 14.3 11.5-14.5 [facility] HospitalXobgtvnNVKTIZJJVW1691-15-40 14:38:00 Test Item Value Reference Range Interpretation Comments MPV (test code = MPV) 9.3 7.4-10.4 [facility] HospitalGgtysspKSGEFWFTPB2805-31-22 14:38:00 Test Item Value Reference Range Interpretation Comments Platelet (test code = Platelet) 193 133-450 [facility] HospitalAhhhyatLDGQWVHPGV8141-27-00 14:38:00 Test Item Value Reference Range Interpretation Comments Basophils # (test code 0.0 See_Comment [Aut omated message] The = Basophils #) system which generated this result tra nsmitted reference range : <=0.2. The reference r lv was not used to int erpret this result as normal/abnormal . [facility] HospitalJumnsfpXPXPYBHYWL7367-62-11 14:38:00 Test Item Value Reference Range Interpretation Comments Segs (test code = Segs) 61.4 45.0-75.0 [facility] HospitalWiyhcjiZEDQEHGIUX2755-53-38 14:38:00 Test Item Value Reference Range Interpretation Comments Lymphocytes (test code = Lymphocytes) 30.9 20.0-40.0 [facility] HospitalMqnifxnHOLAYDUIGJ9536-86-73 14:38:00 Test Item Value Reference Range Interpretation Comments Lymphocytes # (test code = Lymphocytes 2.3 1.0-5.5 #) [facility] HospitalVlvxaboOSUKUHULQZ7975-88-29 14:38:00 Test Item Value Reference Range Interpretation Comments Monocytes # (test code 0.4 See_Comment [Aut omated message] The = Monocytes #) system which generated this result tra nsmitted reference range : <=0.8. The reference r lv was not used to int erpret this result as normal/abnormal . [id number] 14:38:00 Test Item Value Reference Range Interpretation Comments Segs-Bands # (test code = Segs-Bands #) 4.5 1.5-8.1 [facility] Hospit[id number] 14:38:00 Test Item Value Reference Range Interpretation Comments Basophils (test code = 0.5 See_Comment [Aut omated message] The Basophils) system which ge nerated this result tra nsmitted reference range : <=1.0. The reference r lv was not used to int erpret this result as normal/abnormal . [facility] HospitalSfllxevVCQFYVYZHB3532-61-79 14:38:00 Test Item Value Reference Range Interpretation Comments Monocytes (test code = Monocytes) 5.8 2.0-12.0 [facility] HospitalDcrjcmzYKTZWJQECB9535-31-04 14:38:00 Test Item Value Reference Range Interpretation Comments Eosinophils (test code = 1.4 See_Comment [A utomated message] The Eosinophils) system which ge nerated this result tra nsmitted reference range : <=4.0. The reference r lv was not used to int erpret this result as normal/abnormal . [facility] HospitalTikgkmjTXKZLGIZYT5121-61-20 14:38:00 Test Item Value Reference Range Interpretation Comments Eosinophils # (test code 0.1 See_Comment [A utomated message] The = Eosinophils #) system whic h generated this result tra nsmitted reference range : <=0.5. The reference r lv was not used to int erpret this result as normal/abnormal . [facility]46 14:38:00 Test Item Value Reference Range Interpretation Comments HIV 1/2 Ab (test code Negative *NA*(08/03/15 = HIV 1/2 Ab) 9:38 AM) [place] [id number] 14:38:00 Test Item Value Reference Range Interpretation Comments Hep C Ab (test code = Negative *NA*(08/03/15 Hep C Ab) 9:38 AM) [facility]2016-06-23 14:38:00 Test Item Value Reference Range Interpretation Comments eGFR (test code = eGFR) 79 [facility]2016-06-23 14:38:00 Test Item Value Reference Range Interpretation Comments Sodium Lvl (test code = Sodium Lvl) 144 135-145 [facility]2016-06-23 14:38:00 Test Item Value Reference Range Interpretation Comments Chloride Lvl (test code = Chloride Lvl) 104 95-109 [facility]2016-06-23 14:38:00 Test Item Value Reference Range Interpretation Comments Potassium Lvl (test code = Potassium 4.6 3.5-5.1 Lvl) [facility]2016-06-23 14:38:00 Test Item Value Reference Range Interpretation Comments Calcium Lvl (test code = Calcium Lvl) 9.4 8.5-10.5 [facility]2016-06-23 14:38:00 Test Item Value Reference Range Interpretation Comments CO2 (test code = CO2) 31 24-32 [facility]2016-06-23 14:38:00 Test Item Value Reference Range Interpretation Comments Glucose Lvl (test code = Glucose Lvl) 126 70-99 [facility]2016-06-23 14:38:00 Test Item Value Reference Range Interpretation Comments Creatinine Lvl (test code = Creatinine 0.84 0.50-1.40 Lvl) [facility]2016-06-23 14:38:00 Test Item Value Reference Range Interpretation Comments BUN (test code = BUN) 17 7-22 [facility]2016-06-23 14:38:00 Test Item Value Reference Range Interpretation Comments AGAP (test code = AGAP) 13.6 10.0-20.0 [facility] HospitalK[id number] 14:38:00 Test Item Value Reference Range Interpretation Comments MCH (test code = MCH) 28.8 pg 27.0-31.0 [facility] HospitalIyyqjljCZTKLCYNZP9841-64-11 14:38:00 Test Item Value Reference Range Interpretation Comments Hgb (test code = Hgb) 12.1 12.0-16.0 [facility] HospitalYvmkdzcSHDLSJNPSR6315-63-12 14:38:00 Test Item Value Reference Range Interpretation Comments RBC (test code = RBC) 4.20 4.20-5.40 [facility] HospitalBxjkbxtBWSXNTKCVV6730-30-90 14:38:00 Test Item Value Reference Range Interpretation Comments MCV (test code = MCV) 89.2 80.0-98.0 [facility] Hospit[id number] 14:38:00 Test Item Value Reference Range Interpretation Comments Hct (test code = Hct) 37.5 36.0-48.0 [facility] HospitalMfdiasfEBMPJJCSZE3020-13-78 14:38:00 Test Item Value Reference Range Interpretation Comments WBC (test code = WBC) 7.4 3.7-10.4 [facility] HospitalTddmrqcERYIYTXUTF9530-06-17 14:38:00 Test Item Value Reference Range Interpretation Comments MCHC (test code = MCHC) 32.3 32.0-36.0 [facility] HospitalXoxfvhxAZRKQUWHAC2983-29-92 14:38:00 Test Item Value Reference Range Interpretation Comments RDW (test code = RDW) 14.3 11.5-14.5 [facility] HospitalClxmlqhDBNHVZMQVO4521-83-85 14:38:00 Test Item Value Reference Range Interpretation Comments MPV (test code = MPV) 9.3 7.4-10.4 [facility] HospitalLcfhdphYBFBAOVICW1307-33-38 14:38:00 Test Item Value Reference Range Interpretation Comments Platelet (test code = Platelet) 193 133-450 [facility] Hospit[id number] 14:38:00 Test Item Value Reference Range Interpretation Comments Basophils # (test code 0.0 See_Comment [Aut omated message] The = Basophils #) system which generated this result tra nsmitted reference range : <=0.2. The reference r lv was not used to int erpret this result as normal/abnormal . [facility] HospitalJinmfhjHPNTCXYXKV4596-74-94 14:38:00 Test Item Value Reference Range Interpretation Comments Segs (test code = Segs) 61.4 45.0-75.0 [facility] HospitalGubacvkAEDVRGBFJD7642-99-92 14:38:00 Test Item Value Reference Range Interpretation Comments Lymphocytes (test code = Lymphocytes) 30.9 20.0-40.0 [facility] HospitalHcpgauvPWNDYRXTGB8466-55-04 14:38:00 Test Item Value Reference Range Interpretation Comments Lymphocytes # (test code = Lymphocytes 2.3 1.0-5.5 #) [facility] HospitalPeceogfXOBQYTMEDK7993-92-85 14:38:00 Test Item Value Reference Range Interpretation Comments Monocytes # (test code 0.4 See_Comment [Aut omated message] The = Monocytes #) system which generated this result tra nsmitted reference range : <=0.8. The reference r lv was not used to int erpret this result as normal/abnormal . [facility]
[2022-04-01] MEDS ORDERED: INSULIN -REGULAR HUMAN 50 UNIT/0.5 ML ML ONE (22:30)
[2022-04-01] MEDS ORDERED: NA CHLORIDE 0.9% 2,000 ML ONE (22:31)
[2022-04-01 22:48] LABS: Absolute Lymphocytes (CBC) 2.3 K/uL (0.7-4.9); Hematocrit 38.2 % (36.0-45.0); Lymphocytes % 33.2 % (15.3-44.8); MCV 82.9 fL (80-100); MPV 8.3 fL (7.6-11.3); RBC Red Blood Cell Count 4.61 M/uL (3.86-4.86)
[2022-04-01 22:55] LABS: Urine Blood 1+ (Negative); Urine Glucose 2+ (Negative); Urine Protein Negative (Negative); Urine Specific Gravity 1.015 (1.005-1.030)
[2022-04-01 23:28] LABS: Albumin 3.4 g/dL (3.4-5.0); Bilirubin Total 0.3 mg/dL (0.2-1.0); Protein, Total 7.4 g/dL (6.4-8.2)
--- NOTE | 2022-04-02 00:28 | ER ---
Nurse's Notes [facility] Name: Bob Armstrong Age: 61 yrs Sex: Female : 1960 Arrival Date: 04/01/2022 Time: 18:36 Bed 24 Private MD: Diagnosis: Type 2 diabetes mellitus with hyperglycemia Presentation: 04/01 19:44 Chief complaint: Patient states: "I've been taking steroids and I'm having a reaction as6 to them and by sugar has been high". Coronavirus screen: At this time, the client does not indicate any symptoms associated with coronavirus-19. Ebola Screen: No symptoms or risks identified at this time. Initial Sepsis Screen: Does the patient meet any 2 criteria? No. Patient's initial sepsis screen is negative. Does the patient have a suspected source of infection? No. Patient's initial sepsis screen is negative. Risk Assessment: Do you want to hurt yourself or someone else? Patient reports no desire to harm self or others. Onset of symptoms was April 01, 2022. 19:44 Method Of Arrival: Ambulatory as6 19:44 Acuity: JERRY 3 as6 Triage Assessment: 19:45 General: Appears in no apparent distress. Behavior is calm, cooperative. Pain: as6 Complains of pain in pelvis. : Reports discharge, from vagina that is vaginal itching. Derm: Reports itching. 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 - Social history:: Smoking status: Patient denies any tobacco usage or history of. - Family history:: not pertinent. Screenin:25 [facility] ED Fall Risk Assessment (Adult) History of falling in the last 3 months, bb including since admission No falls in past 3 months (0 pts) Score/Fall Risk Level 0 - 2 = Low Risk Oriented to surroundings, Maintained a safe environment. Abuse screen: Denies threats or abuse. Nutritional screening: No deficits noted. Tuberculosis screening: No symptoms or risk factors identified. Assessment: 22:25 General: Appears in no apparent distress. Behavior is calm, cooperative. General: bb Reports "my blood sugar is high and I have been having anxiety and difficulty sleeping for several months now". Neuro: Level of Consciousness is awake, alert, obeys commands, Oriented to person, place, time, situation. Cardiovascular: Capillary refill < 3 seconds Patient's skin is warm and dry. Respiratory: Respiratory effort is even, unlabored. GI: No signs and/or symptoms were reported involving the gastrointestinal system. Derm: Skin is pink, warm \\T\\ dry. Musculoskeletal: Circulation, motion, and sensation intact. Vital Signs: 19:44 BP 145 / 82; Pulse 82; Resp 18 S; Temp 98.8(O); Pulse Ox 99% on R/A; Weight 99.79 kg as6 (R); Height 5 ft. 11 in. (180.34 cm) (R); Pain 8/10; 22:42 BP 151 / 70; Pulse 69; Resp 20; Temp 98.7; Pulse Ox 98% on R/A; mw2 19:44 Body Mass Index 30.68 (99.79 kg, 180.34 cm) as6 ED Course: 18:36 Patient arrived in ED. mr 19:05 José Antonio Altamirano MD is Attending Physician. rt 19:45 Triage completed. as6 19:46 Arm band placed on. as6 22:25 Patient has correct armband on for positive identification. Bed in low position. Call bb light in reach. Side rails up X 1. 22:30 Initial lab(s) drawn, by me, sent to lab. Inserted saline lock: 20 gauge in left bb antecubital area, using aseptic technique. Blood collected. 23:02 Macy Leos, DANTE is Primary Nurse. bb 23:53 IV discontinued, intact, bleeding controlled, No redness/swelling at site. Pressure ll3 dressing applied. 23:53 Inserted saline lock: 20 gauge in right antecubital area, using aseptic technique. ll3 04/02 00:34 No provider procedures requiring assistance completed. ll3 00:34 IV discontinued, intact, bleeding controlled, No redness/swelling at site. Pressure ll3 dressing applied. Administered Medications: 04/01 22:30 Drug: Insulin Regular Human 10 units {Co-Signature: ll3 (Alyssia Pimentel RN).} Route: bb IVP; Site: left antecubital; 22:38 Drug: NS 0.9% 2000 ml Route: IV; Rate: 1 bolus; Site: left antecubital; bb 04/02 00:08 Follow up: Response: No adverse reaction; IV Status: Completed infusion; IV Intake: ll3 2000ml 04/01 22:52 Not Given (Other Intervention Used): Insulin Regular Human 10 units Sub-Q once bb Medication: 22:25 VIS not applicable for this client. Point of Care Testing: Blood Glucose: 19:46 Blood Glucose: 426 mg/dL; as6 Ranges: Intake: 04/02 00:08 IV: 2000ml; Total: 2000ml. ll3 Outcome: 00:28 Discharge ordered by . rt 00:34 Discharged to home ambulatory. ll3 00:34 Condition: stable 00:34 Discharge instructions given to patient, Instructed on discharge instructions, follow up and referral plans. Demonstrated understanding of instructions, follow-up care. 00:34 Patient left the ED. ll3 Signatures: Miracle Moyer LeosMacy, RN RN bb Yaritza Salgado mw2 Blu Arroyo RN RN as6 Alyssia Pimentel RN RN ll3 José Antonio Altamirano MD MD rt Alyssia Pimentel RN ll3
--- NOTE | 2022-04-02 00:28 | EDPHYS ---
Physician Documentation [facility] Name: Bob Armstrong Age: 61 yrs Sex: Female : 1960 Arrival Date: 04/01/2022 Time: 18:36 Bed 24 Private MD: ED Physician José Antonio Altamirano HPI: 04/02 02:13 This 61 yrs old Female presents to ER via Ambulatory with complaints of High Blood rt Sugar. 02:13 Patient presents to the ED with hyperglycemia. She states that her blood sugar has been rt elevating, however, it was in the 400s in the clinic. The patient states that she has had a yeast infection secondary to this. She reports compliance with her medications. She states that she feels thirsty and has been urinating more frequently, however, she has no other complaints at this time. Symptoms are moderate in severity, no other aggravating or elevating factors.. 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 - Social history:: Smoking status: Patient denies any tobacco usage or history of. - Family history:: not pertinent. ROS: 04/02 02:13 Constitutional: Negative for fever, chills, and weight loss, Eyes: Negative for injury, rt pain, redness, and discharge, Cardiovascular: Negative for chest pain, palpitations, and edema, Respiratory: Negative for shortness of breath, cough, wheezing, and pleuritic chest pain, Abdomen/GI: Negative for abdominal pain, nausea, vomiting, diarrhea, and constipation, MS/Extremity: Negative for injury and deformity, Skin: Negative for injury, rash, and discoloration, Neuro: Negative for headache, weakness, numbness, tingling, and seizure, Psych: Negative for depression, anxiety, suicide ideation, homicidal ideation, and hallucinations. Exam: 02:13 Constitutional: This is a well developed, well nourished patient who is awake, alert, rt and in no acute distress. Head/Face: Normocephalic, atraumatic. Chest/axilla: Normal chest wall appearance and motion. Nontender with no deformity. No lesions are appreciated. Cardiovascular: Regular rate and rhythm with a normal S1 and S2. No gallops, murmurs, or rubs. Normal PMI, no JVD. No pulse deficits. Respiratory: Lungs have equal breath sounds bilaterally, clear to auscultation and percussion. No rales, rhonchi or wheezes noted. No increased work of breathing, no retractions or nasal flaring. Abdomen/GI: Soft, non-tender, with normal bowel sounds. No distension or tympany. No guarding or rebound. No evidence of tenderness throughout. Skin: Warm, dry with normal turgor. Normal color with no rashes, no lesions, and no evidence of cellulitis. MS/ Extremity: Pulses equal, no cyanosis. Neurovascular intact. Full, normal range of motion. Neuro: Awake and alert, GCS 15, oriented to person, place, time, and situation. Cranial nerves II-XII grossly intact. Motor strength 5/5 in all extremities. Sensory grossly intact. Cerebellar exam normal. Normal gait. Psych: Awake, alert, with orientation to person, place and time. Behavior, mood, and affect are within normal limits. 02:13 ENT: Dry mucous membranes. Vital Signs: 04/01 19:44 BP 145 / 82; Pulse 82; Resp 18 S; Temp 98.8(O); Pulse Ox 99% on R/A; Weight 99.79 kg as6 (R); Height 5 ft. 11 in. (180.34 cm) (R); Pain 8/10; 22:42 BP 151 / 70; Pulse 69; Resp 20; Temp 98.7; Pulse Ox 98% on R/A; mw2 19:44 Body Mass Index 30.68 (99.79 kg, 180.34 cm) as6 MDM: 22:08 Patient medically screened. rt 04/02 02:13 Differential diagnosis: Hypoglycemia, sepsis, infection, DKA. Data reviewed: vital rt signs, nurses notes, lab test result(s). Consideration of Admission/Observation Escalation of care including admission/observation considered. I considered the following discharge prescriptions or medication management in the emergency department Medications were administered in the Emergency Department. See MAR. Care significantly affected by the following chronic conditions: Diabetes. Counseling: I had a detailed discussion with the patient and/or guardian regarding: the historical points, exam findings, and any diagnostic results supporting the discharge/admit diagnosis, lab results, the need for outpatient follow up, to return to the emergency department if symptoms worsen or persist or if there are any questions or concerns that arise at home. Response to treatment: the patient's symptoms have markedly improved after treatment. 04/01 19:53 Order name: Glucose, Ancillary Testing; Complete Time: 20:06 EDMS 04/01 20:24 Order name: CBC with Diff rt 04/01 20:24 Order name: CMP rt 04/01 22:49 Order name: CBC with Automated Diff; Complete Time: 22:54 EDMS 04/01 22:54 Order name: Urine Osmolality rt 04/01 22:56 Order name: Urine Dipstick-Ancillary; Complete Time: 00:20 EDMS 04/01 20:24 Order name: Urine Dipstick-Ancillary (obtain specimen); Complete Time: 22:48 rt 04/01 23:28 Order name: Comprehensive Metabolic Panel; Complete Time: 00:20 EDMS Administered Medications: 04/01 22:30 Drug: Insulin Regular Human 10 units {Co-Signature: [email or web address] (Alyssia Pimentel RN).} Route: bb IVP; Site: left antecubital; 22:38 Drug: NS 0.9% 2000 ml Route: IV; Rate: 1 bolus; Site: left antecubital; bb 04/02 00:08 Follow up: Response: No adverse reaction; IV Status: Completed infusion; IV Intake: ll3 2000ml 04/01 22:52 Not Given (Other Intervention Used): Insulin Regular Human 10 units Sub-Q once bb Point of Care Testing: Blood Glucose: 19:46 Blood Glucose: 426 mg/dL; as6 Ranges: Critical Glucose Levels:Adult <50 mg/dl or >400 mg/dl <40 mg/dl or >180 mg/dl Disposition Summary: 04/02/22 00:28 Discharge Ordered Location: Home rt Problem: an acute exacerbation rt Symptoms: are resolved rt Condition: Stable rt Diagnosis - Type 2 diabetes mellitus with hyperglycemia rt Followup: rt - With: Private Physician - When: 2 - 3 days - Reason: Discharge Instructions: - Discharge Summary Sheet rt - Hyperglycemia rt Forms: - Medication Reconciliation Form rt - Thank You Letter rt - Antibiotic Education rt - Prescription Opioid Use rt Signatures: Dispatcher [employer] Macy Sims, RN RN Blu Wise RN RN as6 José Antonio Altamirano MD MD rt Alyssia Pimentel RN ll3 Alyssia Pimentel RN ll3
[2022-04-02 01:39] VITALS: BP 151/70; TEMP 98.7; O2SAT 98
== END 2022-04-02 00:34 | disposition home or self-care (01) ==
LOC: ER 18:33
DX: E11.65 Type 2 diabetes mellitus with hyperglycemia (principal); Z88.1 Allergy status to other antibiotic agents; Z88.8 Allergy status to other drugs, medicaments and biological substances
CPT/HCPCS: 85025; 36415; 82947 ×2; 81003; 80053; 83935; J1815; J7030

== ENCOUNTER 2022-04-09 05:19 | Emergency (ER) | payer OTHER ==
--- OUTSIDE RECORDS SUMMARY | 2022-04-09 05:45 | XMS REPORT | Continuity of Care Document ---
:1960 Author Organization [facility] t Address [address] [facility]. [address] [place] [address] Care Team Providers Name Role Phone Luciano Travis Primary Care Physician [phone] Luciano Travis Attending Clinician Unavailable ANDRESSA PUCKETT Attending Clinician Unavailable SHEFALI HOOPER Attending Clinician Unavailable ABRIL JOHNSON Attending Clinician Unavailable Cristofer ANN, Tuyet Robin Attending Clinician Aba Estrada MD Attending Clinician [phone] Brody Hinds MD Attending Clinician BRODY HINDS Attending Clinician Unavailable Doctor Unassigned, [employer] Attending Clinician Unavailable Jordy HOWELL, Ct Attending Clinician Unavailable RASHMI FLETCHER Attending Clinician Unavailable Johanne HALE Rashmi Christina Attending Clinician Radiology Attending Clinician Unavailable RADIOLOGY Attending Clinician Unavailable Madonna ANN, Greg Mason Attending Clinician Liam ANN, Nida Attending Clinician [...] Number Effective Date Expiration Date S gaby [facility] [id number] 2020 00:00:00 [employer] MEDICARE [id number] 2020 00:00:00 [facility] 53 [id number] 2021 [facility] ADVANTAGE 00:00:00 - [facility] [id number] 2013 2020 00:00:00 00:00:00 Problems Condition Condition [...] th 00:00: 00 Visual Visual Disease Active 2021-0 Methodi disturbanc disturbanc 3-25 st e of one e of one 00:00: Hospit a eye eye 00 l H92.01 - H92.01 - Diagnosis Active 2019-022019-11-25 Memoria "OTALGIA, "OTALGIA, 0-01 12:00:00 l RIGHT EAR" RIGHT EAR" 00:01: He naomi Active 00 11/11/2019 NISHA [place] Troponin I Troponin I Disease Active U [...] 12:48:00 l Active 00:00: [place] 04/01/2016 00 [place] STRESS STRESS Diagnosis Active 2015-08-10 Me moria URINARY URINARY 4-14 07:24:00 l INCONTINEN INCONTINEN 00:00: Mikel salgado CE-N39.3 / CE-N39.3 / 00 URET URET Active 05/25/2015 [place] R31.2 - R31.2 - Diagnosis Active 2015-06-06 Memoria OTHER OTHER 3-14 16:22:00 l MICROSCOPI MICROSCOPI 00:01: Mikel Pineda C 00 HEMATURIA HEMATURIA Active 04/24/2015 Chrystal English OPID [place] 727.00 - 727.00 - Diagnosis Active 2011-09-02 Memoria SYNOVITIS SYNOVITIS 08-29 08:58:00 l NOS NOS Active 00:01: Randy iqbal 08/30/2011 00 NISHA [facility] Anxiety Anxiety Problem Resolve 2019-11-26 M emoria (finding) (finding) d 23:02:23 l Resolved [place] Problem 11/26/2019 Tomasa Farrar [place] Depressive Depressiv Problem Resolve 2019-11-26 Memoria disorder e disorder d 23:02:23 l (disorder) (disorder) He rmann Resolved Problem 11/26/2019 Tomasa Farrar [place] Diabetes Diabetes Problem Resolve 2019-11-26 Memoria mellitus mellitus d 23:02:23 l (disorder) (disorder) He rmann Resolved Problem 11/26/2019 Tmoasa Farrar [place] Endometrio Endometri Problem Resolve 2019-11-26 Memoria sis osis d 23:02:23 l (disorder) (disorder) He rmann Resolved Problem 11/26/2019 Tomasa Farrar [place] Fibromyosi Problem Resolve 2019-11-26 Memoria tis Fibromyosi d 23:02:23 l (disorder) tis Randy n (disorder) Resolved Problem 11/26/2019 Tomasa Farrar [place] Lumbar Lumbar Problem Resolve 2019-11-26 Mem oria spondylosi spondylosi d 23:02:23 l s s [place] (disorder) (disorder) Resolved Problem 11/26/2019 Tomasa Farrar [place] Motion Motion Problem Resolve 2019-11-26 Mem oria sickness sickness d 23:02:23 l (disorder) (disorder) He rmann Resolved Problem 11/26/2019 Tomasa Farrar [place] Neuropathy Neuropath Problem Resolve 2019-11-26 Memoria (disorder) y d 23:02:23 l (disorder) Randy n Resolved Problem 11/26/2019 Tomasa Farrar [place] Sleep Sleep Problem Resolve 2019-11-26 Alonzo summer apnea apnea d 23:02:23 l (finding) (finding) Daisha archana Resolved Problem 11/26/2019 Tomasa Farrar [place] Restless Restless Problem Commo n legs leg Spirit syndrome syndrome - [facility] Fibromyalg Fibromyalg Problem C ommon ia ia Spirit - [facility] Type II Diabetes Problem Common diabetes type 2, Spirit mellitus controlled - CH I well controlled [facility] Morbid Morbid Problem Common obesity obesity [facility] [id number] Body mass Problem Com mon index Spirit [BMI] - [facility] 32.0-32.9, [facility] [id number] Other Problem Common obesity Spirit due to - [facility] excess [facility] Diabetic Diabetic Problem Commo n neuropathy neuropathy Sp marco antonio - [facility] Fatty Fatty Problem Common liver liver [facility] Insomnia Insomnia Problem Commo n Spirit [facility] [id number] Incontinen Problem Com mon ce of Spirit feces, - CHI unspecifie [facility] fecal [facility] incontinen Medica ce [facility] [id number] Psoriatic Problem Com mon arthritis [facility] Bipolar Bipolar Problem Common disorder disorder [facility] [id number] GERD Problem Common without Spirit esophagiti - [facility] s [facility] 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 [facility] sleep sleep - CHI disorder disorder, St of 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 [place] s work [facility] Ankylosing Ankylosing Problem C ommon spondyliti spondyliti Sp marco antonio s s of - CHI multiple St sites in [facility] spine [facility] [id number] Macular Problem Comm on hole of Spirit left eye [facility] Mixed Hyperlipid Problem Commo n hyperlipid emia, Spirit emia mixed [facility] Iron Iron Problem Common deficiency deficiency Sp marco antonio anemia due anemia due - CHI to chronic to chronic St blood loss blood loss [facility] Obstructiv Obstructiv Problem C ommon e sleep e sleep Spirit apnea apnea - [facility] Overactive Overactive Problem C ommon bladder bladder [facility] [id number] Chronic Problem Common obstructiv Spirit e - [facility] l [facility] Center type [id number] Primary Problem Commo n osteoarthr Spirit itis of - CHI both knees [facility] [id number] Urinary Problem Commo n incontinen Spirit ce, - [facility]I unspecifie [facility] [id number] Altered Problem Commo n mental Spirit status, - [facility] unspecifie [facility] mental Medical status Center type [id number] [facility] Problem Com mon (current) Spirit use of - [facility] insulin [facility] [id number] Decreased Problem Com mon vision of Spirit left eye - [facility] Essential Benign Problem Common hypertensi essential Spi rit on HTN - [facility] [id number] Daytime Problem Comm on 00 somnolence [facility] Vitamin D Vitamin D Problem Com mon deficiency deficiency Sp marco antonio - [facility] Rheumatoid Rheumatoid Problem C ommon arthritis arthritis Spir it - [facility] [id number] Type 2 Problem Common diabetes Spirit mellitus - [facility] with [facility] kidney Center disease [id number] Type 2 Problem Common diabetes Spirit mellitus - [facility] with [facility] [id number] Memory Problem Common change [facility] [id number] History of Problem Co mmon suicidal Spirit ideation - [facility] History of History of Problem Resolve [facility] [...] right of right knee knee 04/01/2016 04/04/2016 [place] Allergies, Adverse Reactions, Alerts Allergy Allergy Status [...] Propensi Active Diarrhea Unive rs ty to 6 ity of adverse 00:00: [place] reaction 00 Medical s Branch Pregabal Propensi Active Swelling Univ ers in ty to 6 ity of adverse 00:00: [place] reaction 00 Medical s Branch LACTASE DRUG Active Diarrhea Univers INGREDI 07-21 ity of 00:00: [place] [...] pregabal Active Unknown Commo n in in [facility] canaglif canaglif Active Unknown Commo n lozin lozin [facility] Methylpr Methylpr Active Unknown [facility] gl[facility]pir glimepir Active Unknown Commo n timothy timothy [facility] [id number] Drug Active Unknown Common allergy [facility] Lyrica Lyrica Active Memoria l [place] Latex Latex Active Memoria l [place] Adhesive Adhesive Active Memori a l [place] Family History Family Member Diagnosis Comments Start Date Stop Date Source Mother [facility] Mother [facility] lung cancer Mother [facility] hypertension Father [facility] stroke Brother [facility] diabetes mellitus Natural father Stroke [facility] Natural mother Lung cancer [facility] Social History Social Habit Start Date Stop Date Quantity Comments Source History of [facility] - Tobacco Use [facility] Alcohol intake 2022-01-25 2022-01-25 Ex-drinker [facility] 00:00:00 00:00:00 (finding) Hospital Alcohol Comment 2022-01-24 2022-01-24 rarely [facility] 00:00:00 00:00:00 Hospital Exposure to 2021-10-10 2021-10-20 Not sure [facility] SARS-CoV-2 00:00:00 15:53:00 (event) Tobacco use and 2020-06-22 2020-06-22 Smokeless tobacco [facility] exposure 00:00:00 00:00:00 non-user Hospital Social History 2015-08-03 2015-08-03 [facility] 14:18:54 14:18:54 Sex Ass[birth year] At [birth year] [facility] 00:00:00 00:00:00 Hospital Smoking Status Start Date Stop Date Source Never smoked tobacco [facility] Medications Ordered Filled Start Stop [...] No QD predniSONE 20 MG 20 MG - 20 MG 00:00: 00:00 00 :00 [...] l tablet day. PILOCARPINE 2021-02 Yes 7.5mg Q.[id number] Take 7.5 [facility] HCL ORAL 2-[id number] 03:06: 3D mouth 3 [...] 07 l lithium 300 2021-02 Yes 300mg Q.[id number] Take 300 [facility] MG capsule 2-[id number] 03:06: 3D mouth 3 [...] 30 (thirty) days. insulin 2021-02 Yes 22U Q.[id number] Inject 22 [facility] lispro 2-[id number] (HUMALOG 03:06: 3D under the [...] l tablet day. PILOCARPINE 2021-02 Yes 7.5mg Q.[id number] Take 7.5 [facility] HCL ORAL 2-[id number] 03:06: 3D mouth 3 [...] 07 l lithium 300 2021-02 Yes 300mg Q.[id number] Take 300 [facility] MG capsule 2-[id number] 03:06: 3D mouth 3 [...] 30 (thirty) days. insulin 2021-02 Yes 22U Q.[id number] Inject 22 [facility] lispro 2-[id number] (HUMALOG 03:06: 3D under the [...] l tablet day. PILOCARPINE 2021-02 Yes 7.5mg Q.[id number] Take 7.5 [facility] HCL ORAL 2-[id number] 03:06: 3D mouth 3 [...] 07 l lithium 300 2021-02 Yes 300mg Q.[id number] Take 300 [facility] MG capsule 2-[id number] 03:06: 3D mouth 3 [...] 30 (thirty) days. insulin 2021-02 Yes 22U Q.[id number] Inject 22 [facility] lispro 2-[id number] (HUMALOG 03:06: 3D under the [...] Take 1 UT hydroCHLORO 9-14 tablet by [facility] thiazide 14:07: mouth 1 20-12.5 MG 53 [...] 300 MG 14:04: capsule 54 sulfamethox 2022-0 2- No [id number] 1{tbl} Q.5D Take 1 UT azole-trime -11-01 tablet by He alth thoprim 00:00: 04:59 mouth in (Bactrim 00 :00 the DS) 800-160 morning MG tablet and 1 tablet in the evening. Do all this for 7 days. sulfamethox 2022-0 2- No [id number] 1{tbl} Q.5D Take 1 UT azole-trime -11-01 tablet by He alth thoprim 00:00: 04:59 mouth in (Bactrim 00 :00 the DS) 800-160 morning MG tablet and 1 tablet in the evening. Do all this for 7 days. gabapentin 2022-0 Yes 1200mg Take 1,200 Univers 600 mg 8-31 mg by ity of tablet 13:32: mouth in [address] and 1,200 mg in the evening. gabapentin 2022-0 Yes 1200mg Take 1,200 Univers 600 mg 8-31 mg by ity of tablet 13:32: mouth in [address] and 1,200 mg in the evening. gabapentin 2022-0 Yes 1200mg Take 1,200 Univers 600 mg 8-31 mg by ity of tablet 13:32: mouth in [address] and 1,200 mg in the evening. prednisoLON 2021- No 1[drp] 1 Drop U nivers E acetate 1 10-10 every 2 ity of % 13:30: 00:00 (two) [place] ophthalmic 41 :00 hours as Medic al suspension needed for Bra nch drops Itching. prednisoLON 2021-2021- No 1[drp] 1 Drop U nivers E acetate 1 10-10 every 2 ity of % 13:30: 00:00 (two) [place] ophthalmic 41 :00 hours as Medic al suspension needed for Bra nch drops Itching. pilocarpine 2021- No 7.5mg Take 7.5 Univers 7.5 mg 10-10 mg by ity of tablet 13:30: 00:00 mouth 3 [place] 38 :00 (three) Medical times Branch daily. pilocarpine 2021- No 7.5mg Take 7.5 Univers 7.5 mg 10-10 mg by ity of tablet 13:30: 00:00 mouth 3 [place] 38 :00 (three) Medical times Branch daily. Milnacipran 2021- No 50mg Take 50 mg Univers (SAVELLA) 10-10 by mouth ity o f 50 mg 13:30: 00:00 at [place] tablet 29 :00 bedtime. Medical Branch Milnacipran 2021-0 2021- No 50mg Take 50 mg Univers (SAVELLA) 10-10 by mouth ity o f 50 mg 13:30: 00:00 at [place] tablet 29 :00 bedtime. Medical Branch suvorexant 2021- No 20mg Take 20 mg Univers (BELSOMRA) 10-10 by mouth ity of 20 mg Tab 13:30: 00:00 at [place] 19 :00 bedtime. Medical Branch suvorexant 2021-0 2021- No 20mg Take 20 mg Univers (BELSOMRA) 10-10 by mouth ity of 20 mg Tab 13:30: 00:00 at [place] 19 :00 bedtime. Medical Branch simvastatin 2021-0 2021- No 40mg Take 40 mg Univers 40 mg 10-10 by mouth ity of tablet 13:30: 00:00 at [place] 04 :00 bedtime. Medical Branch simvastatin 2021- No 40mg Take 40 mg Univers 40 mg 10-10 by mouth ity of tablet 13:30: 00:00 at [place] 04 :00 bedtime. Medical Branch insulin 2021- No 160U inject 160 Uni vers glargine 10-10 Units ity of U-300 conc 13:29: 00:00 under the [place] (TOUJEO 49 :00 skin. Medical SOLOSTAR Branch U-300 INSULIN) 300 unit/mL (1.5 mL) InPn insulin 2021- No 160U inject 160 Uni vers glargine 10-10 Units ity of U-300 conc 13:: 00:00 under the [place] (TOUJEO 49 :00 skin. Medical [facility] Branch U-300 INSULIN) 300 unit/mL (1.5 mL) In traZODONE 2021- No 100mg Take Univer s 100 mg 10-10 100-200 mg ity of tablet 13:: :00 by mouth [place] 30 :00 at bedtime Medical as needed Branch for Insomnia. traZODONE 2021- No 100mg Take Univer s 100 mg 10-10 100-200 mg ity of tablet 13:: 00:00 by mouth [place] 30 :00 at bedtime Medical as needed Branch for Insomnia. SERTraline 2021- No 50mg Take 50 mg Univers 50 mg 10-10 by mouth. ity of tablet 13:: 00:00 [place] 05 :00 Medical Branch SERTraline 2021- No 50mg Take 50 mg Univers 50 mg 10-10 by mouth. ity of tablet 13:: 00:00 [place] 05 :00 Medical Branch lithium 2021-2021- No 300mg [...] No 200mg Take 200 Univers roquine 200 10-10-31 mg by ity of mg tablet 13:28: 00:00 mouth 2 [place] 44 :[place] (two) Medical times Branch daily. hydroxychlo 2021-2021- No 200mg Take 200 Univers roquine 200 10-10-31 mg by ity of mg tablet 13:28: 00:00 mouth 2 [place] 44 :00 (two) Medical times Branch daily. foLIC acid 2021- No 2mg Take 2 mg U nivers 1 mg tablet 10-10 by mouth ity of 13:28: 00:00 daily. [place] 25 :00 [facility] Branch foLIC acid 2021-2021- No 2mg Take 2 mg U nivers 1 mg tablet 10-10 by mouth ity of 13:28: 00:00 daily. [place] 25 :00 [facility] Branch exenatide 2021- No 2mg inject 2 Uni vers microsphere 10-10 mg under ity of s 2 mg/0.65 13:27: 00:00 the skin. [facility] 56 :00 Medical injection Branch exenatide 2021- No 2mg inject 2 Uni vers microsphere 10-10 mg under ity of s 2 mg/0.65 13:27: 00:00 the skin. [facility] 56 :00 Medical injection Branch doxepin 10 2021- No 10mg Take 10 mg Univers mg capsule 10-10 by mouth. ity of 13:27: 00:00 [place] 38 :00 [facility] Branch doxepin 10 2021- No 10mg Take 10 mg Univers mg capsule 10-10 by mouth. ity of 13:27: 00:00 [place] 38 :00 Medical Branch cycloSPORIN 2021-2021- No [...] No 200mg Take 200 Un emanuel (CELEBREX) 8 08-31 mg by ity of 200 mg 13:27: 00:00 mouth 2 [place] capsule 25 :00 (two) Medical times Branch daily. celecoxib 2021- No 200mg Take 200 Un emanuel (CELEBREX) 10-10 08-31 mg by ity of 200 mg 13:27: 00:00 mouth 2 [place] capsule 25 :00 (two) Medical times Branch daily. aspirin 81 2021- No 81mg Take 81 mg Univers mg chewable 10-10 by mouth ity of tablet 13:27: 00:00 daily. [place] 22 :00 Medical Branch aspirin 81 0 2021- No 81mg Take 81 mg Univers mg chewable 10-10- by mouth ity of tablet 13:27: 00:00 daily. [place] 22 :00 Medical Branch Armodafinil 2021- No [...] tablet 16 :00 bedtime. Medical Branch ARIPiprazol 0 2021- No 20mg Take 20 mg Univers e (ABILIFY) 10-10 08-31 by mouth ity of 20 mg 13:27: 00:00 at [place] tablet 16 :00 bedtime. Medical Branch flash Yes [id number] 1{kit} 1 Kit Univ ers glucose 8- every 14 ity of sensor 00:00: (fourteen) (FREESTYLE 00 days. Medical TERRI 2 E11.65 Branch SENSOR) Kit Insulin Yes [id number] Use as Uni vers [place], 10-10 directed ity of Disposable, 00:00: once daily (BD LOUIE Medical 2ND GEN PEN Branch NEEDLE) 32 gauge x 5/32" Ndle semaglutide Yes [id number] Take U nivers (OZEMPIC) 8 0.25mg ity of 0.25 mg or 00:00: weekly for [place] 0.5 mg( two weeks, Medic al mg/1.5 mL) then Branch PnIj increase to 0.5mg weekly if tolerate insulin Yes [id number] 30U inject Uni vers degludec 8 30-40 ity of (TRESIBA 00:00: Units [place] FLEXTOUCH 00 under the Medic al U-200) 200 skin every Bra nch unit/mL (3 morning. mL) InPn E11.65 flash Yes [id number] 1{kit} 1 Kit Univ ers glucose - every 14 ity of sensor 00:00: (fourteen) [place] (FREESTYLE 00 days. Medical TERRI 2 E11.65 Branch SENSOR) Kit Insulin Yes [id number] Use as Uni vers [place], 10-10 directed ity of Disposable, 00:00: once daily [place] (BD LOUIE Medical 2ND GEN PEN Branch NEEDLE) 32 gauge x 5/32" Ndle semaglutide Yes [id number] Take U nivers (OZEMPIC) 8 0.25mg ity of 0.25 mg or 00:00: weekly for [place] 0.5 mg(2 two weeks, Medic al mg/1.5 mL) then Branch PnIj increase to 0.5mg weekly if tolerate insulin 2021-0 Yes [id number] 30U inject Uni vers degludec 10-10 30-40 ity of (TRESIBA 00:00: Units [place] FLEXTOUCH 00 under the Medic al U-200) 200 skin every Bra nch unit/mL (3 morning. mL) InPn E11.65 flash 2021-0 Yes [id number] 1{kit} 1 Kit Univ ers glucose 10-10 every 14 ity of sensor 00:00: (fourteen) [place] (FREESTYLE 00 days. Medical TERRI 2 E11.65 Branch SENSOR) Kit Insulin Yes [id number] Use as Uni vers [place], 10-10 directed ity of Disposable, 00:00: once daily [place] (BD LOIUE 00 E11.65 Medical 2ND GEN PEN Branch [...] 00 us MG/1.5ML solution pen-injecto r semaglutide 0 Yes [id number] Take U nivers (OZEMPIC) 10-10 0.25mg ity of 0.25 mg or 00:00: weekly for [place] 0.5 mg(2 00 two weeks, Medic al mg/1.5 mL) then Branch PnIj increase to 0.5mg weekly if tolerate insulin 2021-0 Yes [id number] 30U inject Uni vers degludec 10-10 30-40 ity of (TRESIBA 00:00: Units [place] FLEXTOUCH 00 under the Medic al U-200) 200 skin every Bra nch unit/mL (3 morning. mL) InPn E11.65 flash 2021- No [id number] 1{kit} 1 Kit Uni vers glucose 10-10 every 14 ity of sensor 00:00: 00:00 (fourteen) [place] (FREESTYLE 00 :00 days. Medical TERRI 2 E11.65 Branch SENSOR) Kit flash 2021- No [id number] 1{kit} 1 Kit Uni vers glucose 10-10 every 14 ity of sensor 00:00: 00:00 (fourteen[place] (FREESTYLE 00 :00 days. Medical TERRI 2 E11.65 Branch SENSOR) Kit traMADol traMADol 2021- No 1{table QD traMADol HCl 50 MG HCl 50 MG 04-03 t_as_ne HCl 50 MG 00:00: 00:00 eded} 00 :00 sulfamethox 2021-0 Yes [id number] 1{tbl} Take 1 Univers azole-trime 2-14 tablet by ity of thoprim 00:00: mouth [place] 800-160 mg 00 every 12 Medic al per tablet (twelve) Branc h hours. doxycycline 2021-0 Yes [id number] 100mg Take 1 Univers hyclate 100 2-14 capsule by it y of mg capsule 00:00: mouth 2 [place] 00 (two) Medical times Branch daily. sulfamethox 2021-0 Yes [id number] 1{tbl} Take 1 Univers azole-trime 2-14 tablet by ity of thoprim 00:00: mouth [place] 800-160 mg 00 every 12 Medic al per tablet (twelve) Branc h hours. doxycycline 2021-0 Yes [id number] 100mg Take 1 Univers hyclate 100 2-14 capsule by it y of mg capsule 00:00: mouth 2 [place] 00 (two) Medical times Branch daily. sulfamethox 2-0 Yes [id number] 1{tbl} Take 1 Univers azole-trime 2-14 tablet by ity of thoprim 00:00: mouth [place] 800-160 mg 00 every 12 Medic al per tablet (twelve) Branc h hours. doxycycline 2021-0 Yes [id number] 100mg Take 1 Univers hyclate 100 2-14 capsule by it y of mg capsule 00:00: mouth 2 [place] 00 (two) Medical times Branch daily. sulfamethox 2021- No [id number] 1{tbl} Take 1 Univers azole-trime 2-14 -31 tablet by it y of thoprim 00:00: 00:00 mouth [place] 800-160 mg 00 :00 every 12 Medic al per tablet (twelve) Branc h hours. doxycycline 2021- No [id number] 100mg Take 1 Univers hyclate 100 2-14 -31 capsule by i ty of mg capsule 00:00: 00:00 mouth 2 [place] as 00 :00 (two) Medical times Branch daily. sulfamethox 2021- No [id number] 1{tbl} Take 1 Univers azole-trime 2-14 -31 tablet by it y of thoprim 00:00: 00:00 mouth [place] 800-160 mg 00 :00 every 12 Medic al per tablet (twelve) Branc h hours. doxycycline No [id number] 100mg Take 1 Univers hyclate 100 2-14 [...]
Fa culty member approving Restricted medication : MADONNAGREG Isabella traMADoL 2020-02 Yes [id number] 50mg Take [...] 02 :00 daily. l armodafiniL 2020- No [id number] 250mg QD Take 1 [facility] (NUVIGIL) 5-17 11-[address] 250 mg 00:00: 05:59 (250 mg Hospita tablet 00 :00 total) by l mouth daily for 180 days. armodafiniL 2020- No [id number] 250mg QD Take 1 [facility] (NUVIGIL) 5-17 [...] tablet 00 each day. amitriptyli 2020- No [id number] 50mg QD Take 2 [facility] ne (ELAVIL) 5-14 11-[address] 25 MG 00:00: 05:59 (50 mg Hospita tablet 00 :00 total) by l mouth nightly for 180 days. amitriptyli 2020- No [id number] 50mg QD Take 2 Methodi ne (ELAVIL) 5-14 11-[address] 25 MG 00:00: 05:59 (50 mg Hospita tablet 00 :00 total) by l mouth nightly for 180 days. carBAMazepi 2021- No [id number] 200mg Q.5D Take 1 Methodi ne 5-13 05-[address] (TEGretoL) 00:00: 04:59 (200 mg Hos ileana 200 mg 00 :00 total) by l tablet mouth 2 (two) times a day. carBAMazepi 2021- No [id number] 200mg Q.5D Take 1 Methodi co 06-[address] (TEGretoL) 00:00: 04:59 (200 mg Hos ileana 200 mg 00 :00 total) by l tablet mouth 2 (two) times a day. carBAMazepi 2021- No [id number] 200mg Q.5D Take 1 Methodi co 06-[address] (TEGretoL) 00:00: 04:59 (200 mg Hos ileana 200 mg 00 :00 total) by l tablet mouth 2 (two) times a day. carBAMazepi 2021- No [id number] 200mg Q.5D Take 1 Methodi co 06-[address] (TEGretoL) 00:00: 04:59 (200 mg Hos ileana 200 mg 00 :00 total) by l tablet mouth 2 (two) times a day. carBAMazepi 2021- No [id number] 200mg Q.5D Take 1 Methodi co 06-[address] (TEGretoL) 00:00: 04:59 (200 [...] ity of 250 mg Tab 20:09: mouth [place] [address] daily. Medical Branch cycloSPORIN Yes 1[drp] Place 1 U nivers E 5-12 Drop in ity of (RESTASIS) 20:09: both eyes [place] 0.05 % 27 every 12 Medical drops (twelve) Branch hours. aspirin 81 Yes 81mg Take 81 mg U nivers mg chewable 5-12 by mouth ity of tablet 20:09: daily. [place] [address] Medical Branch atorvastati Yes 10mg Take 10 mg Univers n 10 mg 5-12 by mouth. ity of tablet 20:09: [place] [address] Medical Branch doxepin 10 Yes 10mg Take 10 mg U nivers mg capsule 5-12 by mouth. ity of 20:09: [place] [address] Medical Branch insulin Yes 160U inject 160 Univ ers glargine 5-12 Units ity of U-300 conc 20:09: under the [place] (TOUJEO 27 skin. Medical SOLOSTAR Branch U-300 INSULIN) 300 unit/mL (1.5 mL) InPn lithium Yes 300mg Take 300 Unive rs carbonate 5-12 mg by ity of 300 mg 20:09: mouth. [address] Branch SERTraline Yes 50mg Take 50 mg U nivers 50 mg 5-12 by mouth. ity of tablet 20:09: [address] Branch celecoxib Yes 200mg Take 200 Uni vers (CELEBREX) 5-12 mg by ity of 200 mg 20:09: mouth 2 [place] [address] (two) Medical times Branch daily. hydroxychlo Yes 200mg Take 200 U nivers roquine 200 5-12 mg by ity of mg tablet 20:09: mouth 2 [place] [address] (two) Medical times [place] daily. cyclobenzap Yes 10mg Take 10 mg Univers rine 10 mg 5-12 by mouth 3 ity of tablet 20:09: (three) [place] [address] times [facility] daily. Branch pilocarpine Yes 7.5mg Take 7.5 U nivers 7.5 mg 5-12 mg by ity of tablet 20:09: mouth 3 [place] [address] (three) Medical times [place] daily. Armodafinil Yes 250mg Take 250 U nivers (NUVIGIL) 5-12 mg by ity of 250 mg Tab 20:09: mouth [place] [address] daily. Medical Branch cycloSPORIN Yes 1[drp] Place 1 U nivers E 5-12 Drop in ity of (RESTASIS) 20:09: both eyes [place] 0.05 % 27 every 12 Medical drops (twelve) Branch hours. aspirin 81 Yes 81mg Take 81 mg U nivers mg chewable 5-12 by mouth ity of tablet 20:09: daily. [address] Branch atorvastati Yes 10mg Take 10 mg [facility] n 10 mg 5-12 by mouth. ity of tablet 20:09: [address] Branch doxepin 10 Yes 10mg Take 10 mg U nivers mg capsule 5-12 by mouth. ity of 20:09: [address] insulin Yes 160U inject 160 Univ ers glargine 5-12 Units ity of U-300 conc 20:09: under the [place] ([place] 27 skin. Medical SOLOSTAR Branch U-300 INSULIN) 300 unit/mL (1.5 mL) InPn lithium Yes 300mg Take 300 Unive rs carbonate 5-12 mg by ity of 300 mg 20:09: mouth. [place] [address] Medical Branch SERTraline Yes 50mg Take 50 mg U nivers 50 mg 5-12 by mouth. ity of tablet 20:09: [place] [address] Medical Branch celecoxib Yes 200mg Take 200 Uni vers (CELEBREX) 5-12 mg by ity of 200 mg 20:09: mouth 2 [place] [address] (two) Medical times Branch daily. hydroxychlo Yes 200mg Take 200 U nivers roquine 200 5-12 mg by ity of mg tablet 20:09: mouth 2 [place] [address] (two) Medical times Branch daily. cyclobenzap Yes 10mg Take 10 mg Univers rine 10 mg 5-12 by mouth 3 ity of tablet 20:09: (three) [place] [address] times Medical daily. Branch pilocarpine Yes 7.5mg Take 7.5 U nivers 7.5 mg 5-12 mg by ity of tablet 20:09: mouth 3 [place] [address] (three) Medical times Branch daily. Armodafinil Yes 250mg Take 250 U nivers (NUVIGIL) 5-12 mg by ity of 250 mg Tab 20:09: mouth [place] [address] daily. Medical Branch cycloSPORIN Yes 1[drp] Place 1 U nivers E 5-12 Drop in ity of (RESTASIS) 20:09: both eyes [place] 0.05 % 27 every 12 Medical drops (twelve) Branch hours. aspirin 81 Yes 81mg Take 81 mg U nivers mg chewable 5-12 by mouth ity of tablet 20:09: daily. [address] Branch atorvastati Yes 10mg Take 10 mg [facility] n 10 mg 5-12 by mouth. ity of tablet 20:09: [place] [address] Medical Branch doxepin 10 Yes 10mg Take 10 mg U nivers mg capsule 5-12 by mouth. ity of 20:09: [address] insulin Yes 160U inject 160 Univ ers glargine 5-12 Units ity of U-300 conc 20:09: under the [place] ([place] 27 skin. Medical SOLOSTAR Branch U-300 INSULIN) 300 unit/mL (1.5 mL) InPn lithium Yes 300mg Take 300 Unive rs carbonate 5-12 mg by ity of 300 mg 20:09: mouth. [place] [address] Medical Branch SERTraline Yes 50mg Take 50 mg U nivers 50 mg 5-12 by mouth. ity of tablet 20:09: [address] Branch celecoxib Yes 200mg Take 200 Uni vers (CELEBREX) 5-12 mg by ity of 200 mg 20:09: mouth 2 [place] [address] (two) Medical times Branch daily. hydroxychlo Yes 200mg Take 200 U nivers roquine 200 5-12 mg by ity of mg tablet 20:09: mouth 2 [place] [address] (two) Medical times [place] daily. cyclobenzap Yes 10mg Take 10 mg Univers rine 10 mg 5-12 by mouth 3 ity of tablet 20:09: (three) [place] [address] times [facility] daily. Branch pilocarpine Yes 7.5mg Take 7.5 U nivers 7.5 mg 5-12 mg by ity of tablet 20:09: mouth 3 [place] [address] (three) Medical times Branch daily. Armodafinil Yes 250mg Take 250 U nivers (NUVIGIL) 5-12 mg by ity of 250 mg Tab 20:09: mouth [place] [address] daily. Medical Branch cycloSPORIN Yes 1[drp] Place 1 U nivers E 5-12 Drop in ity of (RESTASIS) 20:09: both eyes [place] 0.05 % 27 every 12 Medical drops (twelve) Branch hours. aspirin 81 Yes 81mg Take 81 mg U nivers mg chewable 5-12 by mouth ity of tablet 20:09: daily. [address] Branch atorvastati Yes 10mg Take 10 mg Univers n 10 mg 5-12 by mouth. ity of tablet 20:09: [address] Branch doxepin 10 Yes 10mg Take 10 mg U nivers mg capsule 5-12 by mouth. ity of 20:09: [address] Branch insulin Yes 160U inject 160 Univ ers glargine 5-12 Units ity of U-300 conc 20:09: under the [place] ([place] 27 skin. Medical SOLOSTAR Branch U-300 INSULIN) 300 unit/mL (1.5 mL) InPn lithium Yes 300mg Take 300 Unive rs carbonate 5-12 mg by ity of 300 mg 20:09: mouth. [place] [address] Medical Branch SERTraline Yes 50mg Take 50 mg U nivers 50 mg 5-12 by mouth. ity of tablet 20:09: [address] celecoxib Yes 200mg Take 200 Uni vers (CELEBREX) 5-12 mg by ity of 200 mg 20:09: mouth 2 [place] [address] (two) Medical times Branch daily. hydroxychlo Yes 200mg Take 200 U nivers roquine 200 5-12 mg by ity of mg tablet 20:09: mouth 2 [place] [address] (two) Medical times Branch daily. cyclobenzap Yes 10mg Take 10 mg Univers rine 10 mg 5-12 by mouth 3 ity of tablet 20:09: (three) [address] daily[address] Branch pilocarpine Yes 7.5mg Take 7.5 U nivers 7.5 mg 5-12 mg by ity of tablet 20:09: mouth 3 [place] [address] (three) Medical times [place] daily. Armodafinil Yes 250mg Take 250 U nivers (NUVIGIL) 5-12 mg by ity of 250 mg Tab 20:09: mouth [place] [address] daily. Medical Branch cycloSPORIN Yes 1[drp] Place 1 U nivers E 5-12 Drop in ity of (RESTASIS) 20:09: both eyes [place] 0.05 % 27 every 12 Medical drops (twelve) Branch hours. aspirin 81 0 Yes 81mg Take 81 mg U nivers mg chewable 5-12 by mouth ity of tablet 20:09: daily. [address] atorvastati Yes 10mg Take 10 mg Univers n 10 mg 5-12 by mouth. ity of tablet 20:09: [address] doxepin 10 Yes 10mg Take 10 mg U nivers mg capsule 5-12 by mouth. ity of 20:09: [address] insulin Yes 160U inject 160 Univ ers glargine 5-12 Units ity of U-300 conc 20:09: under the [place] ([place] 27 skin. Medical SOLOSTAR Branch U-300 INSULIN) 300 unit/mL (1.5 mL) InPn lithium Yes 300mg Take 300 Unive rs carbonate 5-12 mg by ity of 300 mg 20:09: mouth. [place] [address] Medical Branch SERTraline Yes 50mg Take 50 mg U nivers 50 mg 5-12 by mouth. ity of tablet 20:09: [address] celecoxib Yes 200mg Take 200 Uni vers (CELEBREX) 5-12 mg by ity of 200 mg 20:09: mouth 2 [place] [address] (two) Medical times Branch daily. hydroxychlo Yes 200mg Take 200 U nivers roquine 200 5-12 mg by ity of mg tablet 20:09: mouth 2 [place] [address] (two) Medical times Branch daily. cyclobenzap Yes 10mg Take 10 mg Univers rine 10 mg 5-12 by mouth 3 ity of tablet 20:09: (three) [place] [address] times [facility] daily. Branch pilocarpine Yes 7.5mg Take 7.5 U nivers 7.5 mg 5-12 mg by ity of tablet 20:09: mouth 3 [place] [address] (three) Medical times Branch daily. Armodafinil Yes 250mg Take 250 U nivers (NUVIGIL) 5-12 mg by ity of 250 mg Tab 20:09: mouth [place] [address] daily. Medical Branch cycloSPORIN Yes 1[drp] Place 1 U nivers E 5-12 Drop in ity of (RESTASIS) 20:09: both eyes [place] 0.05 % 27 every 12 Medical drops (twelve) Branch hours. aspirin 81 0 Yes 81mg Take 81 mg U nivers mg chewable 5-12 by mouth ity of tablet 20:09: daily. [address] Branch atorvastati 2021-0 Yes 10mg Take 10 mg Univers n 10 mg 5-12 by mouth. ity of tablet 20:09: [address] doxepin 10 Yes 10mg Take 10 mg U nivers mg capsule 5-12 by mouth. ity of 20:09: [address] insulin 2020-0 Yes 160U inject 160 Univ ers glargine 5-12 Units ity of U-300 conc 20:09: under the [place] ([place] 27 skin. Medical SOLOSTAR Branch U-300 INSULIN) 300 unit/mL (1.5 mL) InPn lithium Yes 300mg Take 300 Unive rs carbonate 5-12 mg by ity of 300 mg 20:09: mouth. [address] Branch SERTraline Yes 50mg Take 50 mg U nivers 50 mg 5-12 by mouth. ity of tablet 20:09: [address] celecoxib 0 Yes 200mg Take 200 Uni vers (CELEBREX) 5-12 mg by ity of 200 mg 20:09: mouth 2 [place] [address] (two) Medical times Branch daily. hydroxychlo Yes 200mg Take 200 U nivers roquine 200 5-12 mg by ity of mg tablet 20:09: mouth 2 [place] [address] (two) Medical times [place] daily. cyclobenzap Yes 10mg Take 10 mg Univers rine 10 mg 5-12 by mouth 3 ity of tablet 20:09: (three) [place] [address] times Medical daily. Branch pilocarpine Yes 7.5mg Take 7.5 U nivers 7.5 mg 5-12 mg by ity of tablet 20:09: mouth 3 [place] [address] (three) Medical times Branch daily. exenatide 2020-0 [...] mouth ity of 50 mg 15:10: at [place] tablet 56 bedtime. Medical Branch Milnacipran Yes 50mg Take 50 mg Univers (SAVELLA) 5-12 by mouth ity of 50 mg 15:10: at [place] tablet 56 bedtime. Medical Branch celecoxib Yes 200mg Take 200 Uni vers (CELEBREX) 5-12 mg by ity of 200 mg 15:09: mouth 2 [facility] 27 (two) Medical times Branch daily. hydroxychlo Yes 200mg Take 200 U nivers roquine 200 5-12 mg by ity of mg tablet 15:09: mouth 2 [place] [address] (two) Medical times Branch daily. cyclobenzap Yes 10mg Take 10 mg Univers rine 10 mg 5-12 by mouth 3 ity of tablet 15:09: (three) [place] [address] times Medical daily. Branch pilocarpine Yes 7.5mg Take 7.5 U nivers 7.5 mg 5-12 mg by ity of tablet 15:09: mouth 3 [place] [address] (three) Medical times Branch daily. Armodafinil Yes 250mg Take 250 U nivers (NUVIGIL) 5-12 mg by ity of 250 mg Tab 15:09: mouth [place] [address] daily. Medical Branch cycloSPORIN Yes 1[drp] Place 1 U nivers E 5-12 Drop in ity of (RESTASIS) 15:09: both eyes [place] 0.05 % 27 every 12 Medical drops (twelve) Branch hours. aspirin 81 Yes 81mg Take 81 mg U nivers mg chewable 5-12 by mouth ity of tablet 15:09: daily. [place] [address] Medical Branch atorvastati Yes 10mg Take 10 mg Univers n 10 mg 5-12 by mouth. ity of tablet 15:09: [place] [address] Medical Branch doxepin 10 Yes 10mg Take 10 mg U nivers mg capsule 5-12 by mouth. ity of 15:09: [place] [address] Medical Branch insulin Yes 160U inject 160 Univ ers glargine 5-12 Units ity of U-300 conc 15:09: under the [place] ([place] 27 skin. Medical SOLOSTAR Branch U-300 INSULIN) 300 unit/mL (1.5 mL) InPn lithium Yes 300mg Take 300 Unive rs carbonate 5-12 mg by ity of 300 mg 15:09: mouth. [place] [address] Medical Branch SERTraline Yes 50mg Take 50 mg U nivers 50 mg 5-12 by mouth. ity of tablet 15:09: [address] Branch celecoxib Yes 200mg Take 200 Uni vers (CELEBREX) 5-12 mg by ity of 200 mg 15:09: mouth 2 [place] [address] (two) Medical times Branch daily. hydroxychlo Yes 200mg Take 200 U nivers roquine 200 5-12 mg by ity of mg tablet 15:09: mouth 2 [place] [address] (two) Medical times Branch daily. cyclobenzap Yes 10mg Take 10 mg Univers rine 10 mg 5-12 by mouth 3 ity of tablet 15:09: (three) [place] [address] times [facility] daily. Branch pilocarpine Yes 7.5mg Take 7.5 U nivers 7.5 mg 5-12 mg by ity of tablet 15:09: mouth 3 [place] [address] (three) Medical times [place] daily. Armodafinil Yes 250mg Take 250 U nivers (NUVIGIL) 5-12 mg by ity of 250 mg Tab 15:09: mouth [place] [address] daily. Medical Branch cycloSPORIN Yes 1[drp] Place 1 U nivers E 5-12 Drop in ity of (RESTASIS) 15:09: both eyes [place] 0.05 % 27 every 12 Medical drops (twelve) Branch hours. aspirin 81 Yes 81mg Take 81 mg U nivers mg chewable 5-12 by mouth ity of tablet 15:09: daily. [address] Branch atorvastati Yes 10mg Take 10 mg Univers n 10 mg 5-12 by mouth. ity of tablet 15:09: [address] Branch doxepin 10 Yes 10mg Take 10 mg U nivers mg capsule 5-12 by mouth. ity of 15:09: [address] insulin Yes 160U inject 160 Univ ers glargine 5-12 Units ity of U-300 conc 15:09: under the [place] ([place] 27 skin. Medical SOLOSTAR Branch U-300 INSULIN) 300 unit/mL (1.5 mL) InPn lithium Yes 300mg Take 300 Unive rs carbonate 5-12 mg by ity of 300 mg 15:09: mouth. [place] [address] Medical Branch SERTraline Yes 50mg Take 50 mg U nivers 50 mg 5-12 by mouth. ity of tablet 15:09: [place] [address] Medical Branch celecoxib Yes 200mg Take 200 Uni vers (CELEBREX) 5-12 mg by ity of 200 mg 15:09: mouth 2 [place] [address] (two) Medical times Branch daily. hydroxychlo Yes 200mg Take 200 U nivers roquine 200 5-12 mg by ity of mg tablet 15:09: mouth 2 [place] [address] (two) Medical times Branch daily. cyclobenzap Yes 10mg Take 10 mg Univers rine 10 mg 5-12 by mouth 3 ity of tablet 15:09: (three) [place] [address] times Medical daily. Branch pilocarpine Yes 7.5mg Take 7.5 U nivers 7.5 mg 5-12 mg by ity of tablet 15:09: mouth 3 [place] [address] (three) Medical times Branch daily. Armodafinil Yes 250mg Take 250 U nivers (NUVIGIL) 5-12 mg by ity of 250 mg Tab 15:09: mouth [place] [address] daily. Medical Branch cycloSPORIN Yes 1[drp] Place 1 U nivers E 5-12 Drop in ity of (RESTASIS) 15:09: both eyes [place] 0.05 % 27 every 12 Medical drops (twelve) Branch hours. aspirin 81 Yes 81mg Take 81 mg U nivers mg chewable 5-12 by mouth ity of tablet 15:09: daily. [place] [address] Medical Branch atorvastati Yes 10mg Take 10 mg Univers n 10 mg 5-12 by mouth. ity of tablet 15:09: [address] Branch doxepin 10 Yes 10mg Take 10 mg U nivers mg capsule 5-12 by mouth. ity of 15:09: [address] Branch insulin Yes 160U inject 160 Univ ers glargine 5-12 Units ity of U-300 conc 15:09: under the [place] ([place] 27 skin. Medical SOLOSTAR Branch U-300 INSULIN) 300 unit/mL (1.5 mL) InPn lithium Yes 300mg Take 300 Unive rs carbonate 5-12 mg by ity of 300 mg 15:09: mouth. [place] [address] Medical Branch SERTraline Yes 50mg Take 50 mg U nivers 50 mg 5-12 by mouth. ity of tablet 15:09: [address] celecoxib Yes 200mg Take 200 Uni vers (CELEBREX) 5-12 mg by ity of 200 mg 15:09: mouth 2 [place] [address] (two) Medical times Branch daily. hydroxychlo Yes 200mg Take 200 U nivers roquine 200 5-12 mg by ity of mg tablet 15:09: mouth 2 [place] [address] (two) Medical times Branch daily. cyclobenzap Yes 10mg Take 10 mg Univers rine 10 mg 5-12 by mouth 3 ity of tablet 15:09: (three) [address] daily[address] Branch pilocarpine Yes 7.5mg Take 7.5 U nivers 7.5 mg 5-12 mg by ity of tablet 15:09: mouth 3 [place] [address] (three) Medical times Branch daily. Armodafinil Yes 250mg Take 250 U nivers (NUVIGIL) 5-12 mg by ity of 250 mg Tab 15:09: mouth [place] [address] daily. Medical Branch cycloSPORIN Yes 1[drp] Place 1 U nivers E 5-12 Drop in ity of (RESTASIS) 15:09: both eyes [place] 0.05 % 27 every 12 Medical drops (twelve) Branch hours. aspirin 81 Yes 81mg Take 81 mg U nivers mg chewable 5-12 by mouth ity of tablet 15:09: daily. [address] atorvastati Yes 10mg Take 10 mg Univers n 10 mg 5-12 by mouth. ity of tablet 15:09: [place] 27 Medical Branch doxepin 10 Yes 10mg Take 10 mg U nivers mg capsule 5-12 by mouth. ity of 15:09: [address] Branch insulin Yes 160U inject 160 Univ ers glargine 5-12 Units ity of U-300 conc 15:09: under the [place] ([facility] 27 skin. Medical SOLOSTAR Branch U-300 INSULIN) 300 unit/mL (1.5 mL) InPn lithium Yes 300mg Take 300 Unive rs carbonate 5-12 mg by ity of 300 mg 15:09: mouth. [place] [address] Medical Branch SERTraline Yes 50mg Take 50 mg U nivers 50 mg 5-12 by mouth. ity of tablet 15:09: [address] celecoxib Yes 200mg Take 200 Uni vers (CELEBREX) 5-12 mg by ity of 200 mg 15:09: mouth 2 [place] [address] (two) Medical times Branch daily. hydroxychlo Yes 200mg Take 200 U nivers roquine 200 5-12 mg by ity of mg tablet 15:09: mouth 2 [place] [address] (two) Medical times Branch daily. cyclobenzap Yes 10mg Take 10 mg Univers rine 10 mg 5-12 by mouth 3 ity of tablet 15:09: (three) [place] [address] times [facility] daily. Branch pilocarpine Yes 7.5mg Take 7.5 U nivers 7.5 mg 5-12 mg by ity of tablet 15:09: mouth 3 [place] [address] (three) Medical times [place] daily. Armodafinil Yes 250mg Take 250 U nivers (NUVIGIL) 5-12 mg by ity of 250 mg Tab 15:09: mouth [place] [address] daily. Medical Branch cycloSPORIN Yes 1[drp] Place 1 U nivers E 5-12 Drop in ity of (RESTASIS) 15:09: both eyes [place] 0.05 % 27 every 12 Medical drops (twelve) Branch hours. aspirin 81 Yes 81mg Take 81 mg U nivers mg chewable 5-12 by mouth ity of tablet 15:09: daily. [address] Branch atorvastati Yes 10mg Take 10 mg Univers n 10 mg 5-12 by mouth. ity of tablet 15:09: [address] Branch doxepin 10 Yes 10mg Take 10 mg U nivers mg capsule 5-12 by mouth. ity of 15:09: [address] insulin 0 Yes 160U inject 160 Univ ers glargine 5-12 Units ity of U-300 conc 15:09: under the [place] ([place] 27 skin. Medical SOLOSTAR Branch U-300 INSULIN) 300 unit/mL (1.5 mL) InPn lithium Yes 300mg Take 300 Unive rs carbonate 5-12 mg by ity of 300 mg 15:09: mouth. [place] [address] Medical Branch SERTraline Yes 50mg Take 50 mg U nivers 50 mg 5-12 by mouth. ity of tablet 15:09: [address] celecoxib Yes 200mg Take 200 Uni vers (CELEBREX) 5-12 mg by ity of 200 mg 15:09: mouth 2 [place] [address] (two) Medical times Branch daily. hydroxychlo Yes 200mg Take 200 U nivers roquine 200 5-12 mg by ity of mg tablet 15:09: mouth 2 [place] [address] (two) Medical times [place] daily. cyclobenzap Yes 10mg Take 10 mg Univers rine 10 mg 5-12 by mouth 3 ity of tablet 15:09: (three) [place] [address] times [facility] daily. Branch pilocarpine Yes 7.5mg Take 7.5 U nivers 7.5 mg 5-12 mg by ity of tablet 15:09: mouth 3 [place] [address] (three) Medical times Branch daily. Armodafinil Yes 250mg Take 250 U nivers (NUVIGIL) 5-12 mg by ity of 250 mg Tab 15:09: mouth [place] [address] daily. Medical Branch cycloSPORIN Yes 1[drp] Place 1 U nivers E 5-12 Drop in ity of (RESTASIS) 15:09: both eyes [place] 0.05 % 27 every 12 Medical drops (twelve) Branch hours. aspirin 81 0 Yes 81mg Take 81 mg U nivers mg chewable 5-12 by mouth ity of tablet 15:09: daily. [place] [address] Medical Branch atorvastati Yes 10mg Take 10 mg Univers n 10 mg 5-12 by mouth. ity of tablet 15:09: [address] Branch doxepin 10 Yes 10mg Take 10 mg U nivers mg capsule 5-12 by mouth. ity of 15:09: [place] [address] Medical Branch insulin Yes 160U inject 160 Univ ers glargine 5-12 Units ity of U-300 conc 15:09: under the [place] ([place] 27 skin. Medical SOLOSTAR Branch U-300 INSULIN) 300 unit/mL (1.5 mL) InPn lithium Yes 300mg Take 300 Unive rs carbonate 5-12 mg by ity of 300 mg 15:09: mouth. [place] [address] Medical Branch SERTraline Yes 50mg Take 50 mg U nivers 50 mg 5-12 by mouth. ity of tablet 15:09: [address] celecoxib Yes 200mg Take 200 Uni vers (CELEBREX) 5-12 mg by ity of 200 mg 15:09: mouth 2 [place] [address] (two) Medical times Branch daily. hydroxychlo Yes 200mg Take 200 U nivers roquine 200 5-12 mg by ity of mg tablet 15:09: mouth 2 [place] [address] (two) Medical times Branch daily. cyclobenzap Yes 10mg Take 10 mg Univers rine 10 mg 5-12 by mouth 3 ity of tablet 15:09: (three) [place] [address] times Medical daily. Branch pilocarpine Yes 7.5mg Take 7.5 U nivers 7.5 mg 5-12 mg by ity of tablet 15:09: mouth 3 [place] [address] (three) Medical times Branch daily. Armodafinil Yes 250mg Take 250 U nivers (NUVIGIL) 5-12 mg by ity of 250 mg Tab 15:09: mouth [place] [address] daily. Medical Branch cycloSPORIN Yes 1[drp] Place 1 U nivers E 5-12 Drop in ity of (RESTASIS) 15:09: both eyes [place] 0.05 % 27 every 12 Medical drops (twelve) Branch hours. aspirin 81 2021-0 Yes 81mg Take 81 mg U nivers mg chewable 5-12 by mouth ity of tablet 15:09: daily. [address] atorvastati 0 Yes 10mg Take 10 mg Univers n 10 mg 5-12 by mouth. ity of tablet 15:09: [address] doxepin 10 Yes 10mg Take 10 mg U nivers mg capsule 5-12 by mouth. ity of 15:09: [address] insulin Yes 160U inject 160 Univ ers glargine 5-12 Units ity of U-300 conc 15:09: under the [place] ([place] skin. Medical SOLOSTAR Branch U-300 INSULIN) 300 unit/mL (1.5 mL) InPn lithium Yes 300mg Take 300 Unive rs carbonate 5-12 mg by ity of 300 mg 15:09: mouth. [place] [address] Medical Branch SERTraline Yes 50mg Take 50 mg U nivers 50 mg 5-12 by mouth. ity of tablet 15:09: [address] celecoxib Yes 200mg Take 200 Uni vers (CELEBREX) 5-12 mg by ity of 200 mg 15:09: mouth 2 [place] [address] (two) Medical times [place] daily. hydroxychlo Yes 200mg Take 200 U nivers roquine 200 5-12 mg by ity of mg tablet 15:09: mouth 2 [place] [address] (two) Medical times [place] daily. cyclobenzap Yes 10mg Take 10 mg Univers rine 10 mg 5-12 by mouth 3 ity of tablet 15:09: (three) [place] [address] times [facility] daily. Branch pilocarpine Yes 7.5mg Take 7.5 U nivers 7.5 mg 5-12 mg by ity of tablet 15:09: mouth 3 [place] [address] (three) Medical times [place] daily. Armodafinil 0 Yes 250mg Take 250 U nivers (NUVIGIL) 5-12 mg by ity of 250 mg Tab 15:09: mouth [place] [address] daily. Medical Branch cycloSPORIN 0 Yes 1[drp] Place 1 U nivers E 5-12 Drop in ity of (RESTASIS) 15:09: both eyes [place] 0.05 % 27 every 12 Medical drops (twelve) Branch hours. aspirin 81 Yes 81mg Take 81 mg U nivers mg chewable 5-12 by mouth ity of tablet 15:09: daily. [address] Branch atorvastati Yes 10mg Take 10 mg Univers n 10 mg 5-12 by mouth. ity of tablet 15:09: [address] Branch doxepin 10 Yes 10mg Take 10 mg U nivers mg capsule 5-12 by mouth. ity of 15:09: [address] Branch insulin Yes 160U inject 160 Univ ers glargine 5-12 Units ity of U-300 conc 15:09: under the [place] ([place] skin. Medical SOLOSTAR Branch U-300 INSULIN) 300 unit/mL (1.5 mL) InPn lithium Yes 300mg Take 300 Unive rs carbonate 5-12 mg by ity of 300 mg 15:09: mouth. [place] [address] Medical Branch SERTraline Yes 50mg Take 50 mg U nivers 50 mg 5-12 by mouth. ity of tablet 15:09: [address] Branch celecoxib Yes 200mg Take 200 Uni vers (CELEBREX) 5-12 mg by ity of 200 mg 15:09: mouth 2 [place] [address] (two) Medical times Branch daily. hydroxychlo Yes 200mg Take 200 U nivers roquine 200 5-12 mg by ity of mg tablet 15:09: mouth 2 [place] [address] (two) Medical times Branch daily. cyclobenzap Yes 10mg Take 10 mg Univers rine 10 mg 5-12 by mouth 3 ity of tablet 15:09: (three) [place] [address] times Medical daily. Branch pilocarpine Yes 7.5mg Take 7.5 U nivers 7.5 mg 5-12 mg by ity of tablet 15:09: mouth 3 [place] [address] (three) Medical times Branch daily. Armodafinil Yes 250mg Take 250 U nivers (NUVIGIL) 5-12 mg by ity of 250 mg Tab 15:09: mouth [place] [address] daily. Medical Branch cycloSPORIN Yes 1[drp] Place 1 U nivers E 5-12 Drop in ity of (RESTASIS) 15:09: both eyes [place] 0.05 % 27 every 12 Medical drops (twelve) Branch hours. aspirin 81 0 Yes 81mg Take 81 mg U nivers mg chewable 5-12 by mouth ity of tablet 15:09: daily. [address] atorvastati Yes 10mg Take 10 mg Univers n 10 mg 5-12 by mouth. ity of tablet 15:09: [address] doxepin 10 Yes 10mg Take 10 mg U nivers mg capsule 5-12 by mouth. ity of 15:09: [address] insulin Yes 160U inject 160 Univ ers glargine 5-12 Units ity of U-300 conc 15:09: under the [place] ([place] 27 skin. Medical SOLOSTAR Branch U-300 INSULIN) 300 unit/mL (1.5 mL) InPn lithium Yes 300mg Take 300 Unive rs carbonate 5-12 mg by ity of 300 mg 15:09: mouth. [place] capsule Medical Branch SERTraline Yes 50mg Take 50 mg U nivers 50 mg 5-12 by mouth. ity of tablet 15:09: [address] celecoxib Yes 200mg Take 200 Uni vers (CELEBREX) 5-12 mg by ity of 200 mg 15:09: mouth 2 [place] [address] (two) Medical times Branch daily. hydroxychlo Yes 200mg Take 200 U nivers roquine 200 5-12 mg by ity of mg tablet 15:09: mouth 2 [place] [address] (two) Medical times Branch daily. cyclobenzap Yes 10mg Take 10 mg Univers rine 10 mg 5-12 by mouth 3 ity of tablet 15:09: (three) [place] [address] times Medical daily. Branch pilocarpine Yes 7.5mg Take 7.5 U nivers 7.5 mg 5-12 mg by ity of tablet 15:09: mouth 3 [place] [address] (three) Medical times Branch daily. Armodafinil 0 Yes 250mg Take 250 U nivers (NUVIGIL) 5-12 mg by ity of 250 mg Tab 15:09: mouth [place] [address] daily. Medical Branch cycloSPORIN Yes 1[drp] Place 1 U nivers E 5-12 Drop in ity of (RESTASIS) 15:09: both eyes [place] 0.05 % 27 every 12 Medical drops (twelve) Branch hours. aspirin 81 Yes 81mg Take 81 mg U nivers mg chewable 5-12 by mouth ity of tablet 15:09: daily. [address] atorvastati Yes 10mg Take 10 mg Univers n 10 mg 5-12 by mouth. ity of tablet 15:09: [address] doxepin 10 Yes 10mg Take 10 mg U nivers mg capsule 5-12 by mouth. ity of 15:09: [address] insulin Yes 160U inject 160 Univ ers glargine 5-12 Units ity of U-300 conc 15:09: [place] the [place] 27 skin. Medical SOLOSTAR Branch U-300 INSULIN) 300 unit/mL (1.5 mL) InPn lithium Yes 300mg Take 300 Unive rs carbonate 5-12 mg by ity of 300 mg 15:09: mouth. [address] SERTraline Yes 50mg Take 50 mg U nivers 50 mg 5-12 by mouth. ity of tablet 15:09: [address] atorvastati Yes 10mg Take 10 mg Univers n 10 mg 5-12 by mouth. ity of tablet 15:09: [address] atorvastati Yes 10mg Take 10 mg Univers n 10 mg 5-12 by mouth. ity of tablet 15:09: [address] atorvastati Yes 10mg Take 10 mg Univers n 10 mg 5-12 by mouth. ity of tablet 15:09: [address] exenatide Yes 2mg inject 2 Univ [...] 40 Medical injection Branch oxybutynin 1-0 Yes [id number] 5mg Take 1 U nivers XL 5 mg 24 5-12 tablet by ity of hr tablet 00:00: mouth [place] 00 daily. Medical Branch oxybutynin 1-0 Yes [id number] 5mg Take 1 U nivers XL 5 mg 24 5-12 tablet by ity of hr tablet 00:00: mouth [place] 00 daily. Medical Branch oxybutynin 1-0 Yes [id number] 5mg Take 1 U nivers XL 5 mg 24 5-12 tablet by ity of hr tablet 00:00: mouth [place] 00 daily. Medical Branch oxybutynin 2020-0 Yes [id number] 5mg Take 1 U nivers XL 5 mg 24 5-12 tablet by ity of hr tablet 00:00: mouth [place] 00 daily. Medical Branch oxybutynin 2020-0 Yes [id number] 5mg Take 1 U nivers XL 5 mg 24 5-12 tablet by ity of hr tablet 00:00: mouth [place] 00 daily. Medical Branch oxybutynin 2020-0 Yes [id number] 5mg Take 1 U nivers XL 5 mg 24 5-12 tablet by ity of hr tablet 00:00: mouth [place] 00 daily. Medical Branch oxybutynin 2020-0 Yes [id number] 5mg Take 1 U nivers XL 5 mg 24 5-12 tablet by ity of hr tablet 00:00: mouth [place] 00 daily. Medical Branch oxybutynin 2020-0 Yes [id number] 5mg Take 1 U nivers XL 5 mg 24 5-12 tablet by ity of hr tablet 00:00: mouth [place] 00 daily. Medical Branch oxybutynin 2020-0 Yes [id number] 5mg Take 1 U nivers XL 5 mg 24 5-12 tablet by ity of hr tablet 00:00: mouth [place] 00 daily. Medical Branch oxybutynin 2020-0 Yes [id number] 5mg Take 1 U nivers XL 5 mg 24 5-12 tablet by ity of hr tablet 00:00: mouth [place] 00 daily. Medical Branch oxybutynin 2020-0 Yes [id number] 5mg Take 1 U nivers XL 5 mg 24 5-12 tablet by ity of hr tablet 00:00: mouth [place] 00 daily. Medical Branch oxybutynin 2020-0 Yes [id number] 5mg Take 1 U nivers XL 5 mg 24 5-12 tablet by ity of hr tablet 00:00: mouth [place] 00 daily. Medical Branch oxybutynin 2020-0 Yes [id number] 5mg Take 1 U nivers XL 5 mg 24 5-12 tablet by ity of hr tablet 00:00: mouth [place] 00 daily. Medical Branch oxybutynin 2020-0 Yes [id number] 5mg Take 1 U nivers XL 5 mg 24 5-12 tablet by ity of hr tablet 00:00: mouth [place] 00 daily. Medical Branch oxybutynin 2020-0 Yes [id number] 5mg Take 1 U nivers XL 5 mg 24 5-12 tablet by ity of hr tablet 00:00: mouth [place] 00 [facility] oxy[facility]in 2020-0 Yes [id number] 5mg Take 1 U nivers XL 5 mg 24 5-12 tablet by ity of hr tablet 00:00: mouth [place] 00 daily. [facility] armodafinil 2020-0 Yes 250mg QD Take [...] tablet 00:00: 00 oxybutynin 2020-0 2021- No [id number] 5mg Take 1 Univers XL 5 mg 24 5-12 -31 tablet by ity of hr tablet 00:00: 00:00 mouth [place] 00 :00 daily. [facility] oxybutynin 2020-0 2- No [id number] 5mg Take 1 Univers XL 5 mg 24 5-12 -31 tablet by ity of hr tablet 00:00: 00:00 mouth [place] 00 :00 [facility]. [facility] metformin 2020-0 Yes Univers ER 500 mg 5-10 ity of 24 hr 00:00: [place] tablet 00 [facility] metformin 2020-0 Yes Univers ER 500 mg 5-10 ity of 24 hr 00:00: [place] tablet 00 [facility] metformin 2020-0 Yes Univers ER 500 mg 5-10 ity of 24 hr 00:00: [place] tablet 00 [facility] metformin 2020-0 Yes Univers ER 500 mg 5-10 ity of 24 hr 00:00: [place] tablet 00 [facility] metformin 2020-0 Yes Univers ER 500 mg 5-10 ity of 24 hr 00:00: [place] tablet 00 [facility] metformin 2020-0 Yes Univers ER 500 [...] of 24 hr 00:00: [place] tablet 00 [facility] Branch metformin 2021-0 Yes Univers ER 500 mg 5-10 ity of 24 hr 00:00: [place] tablet [facility] metformin 2021-0 Yes Univers ER 500 mg 5-10 ity of 24 hr 00:00: [place] tablet 00 Medical Branch metformin 2021-0 Yes Univers ER 500 mg 5-10 ity of 24 hr 00:00: [place] tablet Medical Branch metformin 2021-0 Yes Univers ER 500 mg 5-10 ity of 24 hr 00:00: [place] tablet 00 [facility] Branch metformin 2021-0 2022- No Univers ER 500 mg 5-10 08-31 ity of 24 hr 00:00: 00:00 [place] tablet 00 :00 [facility] metformin 2021-0 2022- No Univers ER 500 mg 5-10 08-31 ity of 24 hr 00:00: 00:00 [place] tablet 00 :00 Medical Branch gabapentin 2021-0 Yes Univers 300 mg 4-23 ity of capsule 00:00: [place] [facility] gabapentin 2021-0 Yes Univers 300 mg 4-23 ity of capsule 00:00: [place] [facility] gabapentin 2021-0 Yes Univers 300 mg 4-23 ity of capsule 00:00: [place] [facility] gabapentin 2021-0 Yes Univers 300 mg 4-23 ity of capsule 00:00: [place] [facility] gabapentin 2021-0 Yes Univers 300 mg 4-23 ity of capsule 00:00: [place] [facility] gabapentin 2021-0 Yes Univers 300 mg 4-23 ity of capsule 00:00: [place] [facility] gabapentin 2021-0 Yes Univers 300 mg 4-23 ity of capsule 00:00: [place] 00 Medical Branch gabapentin 2021-0 Yes Univers 300 mg 4-23 ity of capsule 00:00: [place] 00 [facility] Branch gabapentin 2021-0 Yes Univers 300 mg 4-23 ity of capsule 00:00: [place] 00 [facility] Branch gabapentin 2021-0 Yes Univers 300 mg 4-23 ity of capsule 00:00: [place] 00 [facility] Branch gabapentin 2021-0 Yes Univers 300 mg 4-23 ity of capsule 00:00: [place] 00 [facility] Branch gabapentin 2021-0 Yes Univers 300 mg 4-23 ity of capsule 00:00: [place] 00 [facility] Branch gabapentin 2021-0 Yes Univers 300 mg 4-23 ity of capsule 00:00: [place] [address] Medical Branch gabapentin 2021-0 Yes Univers 300 mg 4-23 ity of capsule 00:00: [place] [address] Medical Branch gabapentin 2021-0 Yes Univers 300 mg 4-23 ity of capsule 00:00: [place] [address] Medical Branch gabapentin 2021-0 Yes Univers 300 mg 4-23 ity of capsule 00:00: [place] [address] Medical Branch gabapentin 2021-0 2022- No Univer s 300 mg 4-23 08-31 ity of capsule 00:00: 00:00 [place] 00 :00 Medical Branch gabapentin 2021-0 2022- No Univer s 300 mg 4-23 08-31 ity of capsule 00:00: 00:00 [place] 00 :00 Medical Branch lisinopriL- 2021-0 Yes Univer s hydrochloro 4-07 ity of thiazide 00:00: [place] 20-12.5 mg 00 Medical per tablet Branch lisinopriL- 2021-0 Yes Univer s hydrochloro 4-07 ity of thiazide 00:00: [place] 20-12.5 mg 00 Medical per tablet Branch lisinopriL- 2021-0 Yes Univer s hydrochloro 4-07 ity of thiazide 00:00: [place] 20-12.5 mg 00 Medical per tablet Branch lisinopriL- 2021-0 Yes Univer s hydrochloro 4-07 ity of thiazide 00:00: [place] 20-12.5 mg 00 Medical per tablet Branch lisinopriL- 2021-0 Yes Univer s hydrochloro 4-07 ity of thiazide 00:00: [place] 20-12.5 mg 00 Medical per tablet Branch lisinopriL- Yes [facility] hydrochloro 4-07 ity of thiazide 00:00: [place] 20-12.5 mg 00 Medical per tablet Branch lisinopriL- Yes [facility] s hydrochloro 4-07 ity of thiazide 00:00: [place] 20-12.5 mg 00 Medical per tablet Branch lisinopriL- Yes [facility] hydrochloro 4-07 ity of thiazide 00:00: [place] 20-12.5 mg 00 Medical per tablet Branch lisinopriL- Yes [facility] hydrochloro 4-07 ity of thiazide 00:00: [place] 20-12.5 mg 00 Medical per tablet Branch lisinopriL- Yes [facility] s hydrochloro 4-07 ity of thiazide 00:00: [place] 20-12.5 mg 00 Medical per tablet Branch lisinopriL- Yes [facility] hydrochloro 4-07 ity of thiazide 00:00: [place] 20-12.5 mg 00 Medical per tablet Branch lisinopriL- Yes [facility] hydrochloro 4-07 ity of thiazide 00:00: [place] 20-12.5 mg 00 Medical per tablet Branch lisinopriL- Yes [facility] s hydrochloro 4-07 ity of thiazide 00:00: [place] 20-12.5 mg 00 Medical per tablet Branch lisinopriL- 0 Yes [facility] hydrochloro 4-07 ity of thiazide 00:00: [place] 20-12.5 mg 00 Medical per tablet Branch lisinopriL- Yes [facility] hydrochloro 4-07 ity of thiazide 00:00: [place] 20-12.5 mg 00 Medical per tablet Branch lisinopriL- 0 Yes [facility] hydrochloro 4-07 ity of thiazide 00:00: [place] 20-12.5 mg 00 Medical per tablet Branch lisinopriL- Yes [facility] hydrochloro 4-07 ity of thiazide 00:00: [place] 20-12.5 mg 00 Medical per tablet Branch lisinopriL- Yes [facility] hydrochloro 4-07 ity of thiazide 00:00: [place] 20-12.5 mg 00 Medical per tablet Branch lisinopriL- Yes Univer s hydrochloro 4-07 ity of thiazide 00:00: [place] 20-12.5 mg 00 Medical per tablet Branch thiamine 2020-2020- No 50mg QD Take 0.5 Meth gwen mononitrate 3-27 04-[address] , vit B1, 00:00: 04:59 (50 mg Hospi ta (B-1) 100 00 :00 total) by l mg tablet mouth daily for 30 days. cyclobenzap 2020- No 10mg Q.[id number] Take 10 mg [facility] rine 3-26 03-26 [id number] by mouth [address] (FLEXERIL) 21:43: 00:00 [...] a l tablet day. PILOCARPINE Yes 7.5mg Q.[id number] Take 7.5 [facility] HCL ORAL 3-[id number] 21:43: 3D mouth 3 [...] tablet 19 l lithium 300 Yes 300mg Q.[id number] Take 300 [facility] MG capsule - [id number] mg by st 21:43: 3D mouth 3 [...] 30 (thirty) days. insulin 0 Yes 22U Q.[id number] Inject 22 [facility] lispro -[id number] (HUMALOG 21:43: 3D under the [...] a l tablet day. PILOCARPINE Yes 7.5mg Q.[id number] Take 7.5 [facility] HCL ORAL 3-[id number] 16:43: 3D mouth 3 [...] l ophthalmic times a emulsion day. doxepin 0 Yes 10mg QD Take 10 mg Meth [...] 19 l lithium 300 0 Yes 300mg Q.[id number] Take 300 [facility] MG capsule 3-[id number] 16:43: 3D mouth 3 [...] 50 -[address] MG tablet 16:43: daily. Hospit a 19 l golimumab 0 Yes Q30D Infuse Method i (SIMPONI 3-[address] ARIA IV) 16:43: venous [facility] catheter l every 30 (thirty) days. insulin Yes 22U Q.[id number] Inject 22 [facility] lispro 3-[id number] (HUMALOG 16:43: 3D under the [...] mouth l daily for 5 days. suvorexant No QD Take by [facility] (BELSOMRA) [...] 120U QD Inject 120 [facility] degludec 05-04-[address] (TRESIBA 21:41: 00:00 under the Hos ileana FLEXTOUCH 18 :00 skin l U-100) 100 daily. unit/mL (3 mL) insulin pen folic acid No 2mg QD Take 2 mg M ethodi (FOLVITE) 1 05-04- by mouth st MG tablet 21:40: 00:00 daily. Hospi ta 07 :00 l dexlansopra 2020- No 60mg QD Take 60 mg [facility] zole 05-04- by mouth st (DEXILANT) 21:39: 00:00 daily. [...] pirit one) one) 00:00: - [facility] 00 [facility] Kenalog Kenalog 2020-0 No 40mg Common (Triamcinol (Triamcinol 9-22 S pirit one) one) 00:00: - [facility] 00 [facility] Kenalog Kenalog 2020-0 No 40mg Common (Triamcinol (Triamcinol 9-22 S pirit one) one) 00:00: - [facility] 00 [facility] Kenalog Kenalog 2020-0 No 40mg Common (Triamcinol (Triamcinol 9-22 S pirit one) one) 00:00: - [facility] 00 [facility] Kenalog Kenalog 2020-0 No 40mg Common (Triamcinol (Triamcinol 9-22 S pirit one) one) 00:00: - [facility] 00 [facility] Kenalog Kenalog 2020-0 No 40mg Common (Triamcinol (Triamcinol 9-22 S pirit one) one) 00:00: - [facility] 00 [facility] Kenalog Kenalog 2020-0 No 40mg Common (Triamcinol (Triamcinol 9-22 S pirit one) one) 00:00: - [facility] 00 [facility] Kenalog Kenalog 2020-0 No 40mg Common (Triamcinol (Triamcinol 9-22 S pirit one) one) 00:00: - [facility] 00 [facility] Kenalog Kenalog 2020-0 No 40mg Common (Triamcinol (Triamcinol 9-22 S pirit one) one) 00:00: - [facility] 00 [facility] Kenalog Kenalog 2020-0 No 40mg Common (Triamcinol (Triamcinol 9-22 S pirit one) one) 00:00: - [facility] 00 [facility] Kenalog Kenalog 2020-0 No 40mg Common (Triamcinol (Triamcinol 9-22 S pirit one) one) 00:00: - [facility] 00 [facility] Kenalog Kenalog 2020-0 No 40mg Common (Triamcinol (Triamcinol 9-22 S pirit one) one) 00:00: - [facility] 00 [facility] Kenalog Kenalog 2020-0 No 40mg Common (Triamcinol (Triamcinol 9-22 S pirit one) one) 00:00: - [facility] 00 [facility] Kenalog Kenalog 2020-0 No 40mg Common (Triamcinol (Triamcinol 9-22 S pirit one) one) 00:00: - [facility] 00 [facility] Kenalog Kenalog 2020-0 No 40mg Common (Triamcinol (Triamcinol 9-22 S pirit one) one) 00:00: - [facility] 00 [facility] Amoxicillin Amoxicillin 2020-0 2020- No [facility]iano 1 capsule Common 10-26 [facility] 00:00: 00:00 - [facility] :00 [facility] atorvastati 2020-0 Yes 1 tablet [facility] (Lipitor) 8-20 [facility] 10 MG 00:00: tablet 00 atorvastati 2020-0 Yes 1 tablet [facility] (Lipitor) 8-20 [facility] 10 MG 00:00: tablet 00 Furosemide Furosemide 2019-0 Yes [facility] 0.5 tablet Common 06-10 [facility] 00:00: - [facility] 00 [facility] Furosemide Furosemide 2019-0 No .5{tabl QD Furosemide [...] Spirit hen hen 00:00: - [facility] 00 [facility] HYDROcodone HYDROcodone 2017-02 No 1{table BID HYDROcodon [...] per tablet (twelve) Branc h hours. sulfamethox 2021- No 1{tbl} Take 1 U nivers azole-trime 09-09- tablet by it y 00:00: 00:00 mouth [place] 800-160 mg 00 :00 every 12 Medic al per tablet (twelve) Branc h hours. simvastatin Yes 40mg Take 40 mg Univers 40 mg 6-15 by mouth ity of tablet 18:18: at [place] [address] bedtime. Medical Branch traZODONE 2017 Yes 100mg Take Univers 100 mg 6-15 100-200 mg ity of tablet 18:18: by mouth [place] [address] at bedtime Medical as needed Branch for Insomnia. ARIPiprazol Yes 20mg Take 20 mg Univers e (ABILIFY) 6-15 by mouth ity of 20 mg 18:18: at [facility] 54 bedtime. Medical Branch suvorexant Yes 20mg Take 20 mg U nivers (BELSOMRA) 6-15 by mouth ity o f 20 mg Tab 18:18: at [place] [address] bedtime. Medical Branch prednisoLON Yes 1[drp] 1 Drop Un emanuel E acetate 1 6-15 every 2 ity o f % 18:18: (two) [place] ophthalmic 54 hours as Medic al suspension needed for Bra nch drops Itching. foLIC acid Yes 2mg Take 2 mg Un emanuel 1 mg tablet 6-15 by mouth ity of 18:18: daily. [place] [address] Medical Branch simvastatin Yes 40mg Take 40 mg Univers 40 mg 6-15 by mouth ity of tablet 18:18: at [place] [address] bedtime. Medical Branch traZODONE Yes 100mg Take Univers 100 mg 6-15 100-200 mg ity of tablet 18:18: by mouth [place] 54 at bedtime Medical as needed Branch for Insomnia. ARIPiprazol Yes 20mg Take 20 mg Univers e (ABILIFY) 6-15 by mouth ity of 20 mg 18:18: at [facility] 54 bedtime. Medical Branch suvorexant Yes 20mg Take 20 mg U nivers (BELSOMRA) 6-15 by mouth ity o f 20 mg Tab 18:18: at [place] [address] bedtime. Medical Branch prednisoLON 2017-0 Yes 1[drp] 1 Drop Un emanuel E acetate 1 6-15 every 2 ity o f % 18:18: (two) [place] ophthalmic 54 hours as Medic al suspension needed for Bra nch drops Itching. foLIC acid 2017-0 Yes 2mg Take 2 mg Un emanuel 1 mg tablet 6-15 by mouth ity of 18:18: daily. [place] [address] Medical Branch simvastatin 2017-0 Yes 40mg Take 40 mg Univers 40 mg 6-15 by mouth ity of tablet 18:18: at [place] [address] bedtime. Medical Branch traZODONE 2017-0 Yes 100mg Take Univers 100 mg 6-15 100-200 mg ity of tablet 18:18: by mouth [place] [address] at bedtime Medical as needed Branch for Insomnia. ARIPiprazol 2017-0 Yes 20mg Take 20 mg Univers e (ABILIFY) 6-15 by mouth ity of 20 mg 18:18: at [place] [address] bedtime. Medical Branch suvorexant 2017-0 Yes 20mg Take 20 mg U nivers (BELSOMRA) 6-15 by mouth ity o f 20 mg Tab 18:18: at [place] [address] bedtime. Medical Branch prednisoLON 2017-0 Yes 1[drp] 1 Drop Un emanuel E acetate 1 6-15 every 2 ity o f % 18:18: (two) [place] ophthalmic 54 hours as Medic al suspension needed for Bra nch drops Itching. foLIC acid 2017-0 Yes 2mg Take 2 mg Un emanuel 1 mg tablet 6-15 by mouth ity of 18:18: daily. [place] [address] Medical Branch simvastatin 2017-0 Yes 40mg Take 40 mg Univers 40 mg 6-15 by mouth ity of tablet 18:18: at [place] [address] bedtime. Medical Branch traZODONE [id number] Yes 100mg Take Univers 100 mg 6-15 100-200 mg ity of tablet 18:18: by mouth [place] [address] at bedtime Medical as needed Branch for Insomnia. ARIPiprazol 2017-0 Yes 20mg Take 20 mg Univers e (ABILIFY) 6-15 by mouth ity of 20 mg 18:18: at [place] [address] bedtime. Medical Branch suvorexant 2017-0 Yes 20mg Take 20 mg U nivers (BELSOMRA) 6-15 by mouth ity o f 20 mg Tab 18:18: at [place] [address] bedtime. Medical Branch prednisoLON 2017-0 Yes 1[drp] 1 Drop Un emanuel E acetate 1 6-15 every 2 ity o f % 18:18: (two) [place] ophthalmic 54 hours as Medic al suspension needed for Bra nch drops Itching. foLIC acid 2017-0 Yes 2mg Take 2 mg Un emanuel 1 mg tablet 6-15 by mouth ity of 18:18: daily. [place] [address] Medical Branch simvastatin 2017-0 Yes 40mg Take 40 mg Univers 40 mg 6-15 by mouth ity of tablet 18:18: at [place] [address] bedtime. Medical Branch traZODONE 2017-0 Yes 100mg Take Univers 100 mg 6-15 100-200 mg ity of tablet 18:18: by mouth [place] [address] at bedtime Medical as needed Branch for Insomnia. ARIPiprazol 2017-0 Yes 20mg Take 20 mg Univers e (ABILIFY) 6-15 by mouth ity of 20 mg 18:18: at [place] [address] bedtime. Medical Branch suvorexant 2017-0 Yes 20mg Take 20 mg U nivers (BELSOMRA) 6-15 by mouth ity o f 20 mg Tab 18:18: at [place] [address] bedtime. Medical Branch prednisoLON 2017-0 Yes 1[drp] 1 Drop Un emanuel E acetate 1 6-15 every 2 ity o f % 18:18: (two) [place] ophthalmic 54 hours as Medic al suspension needed for Bra nch drops Itching. foLIC acid 2017-0 Yes 2mg Take 2 mg Un emanuel 1 mg tablet 6-15 by mouth ity of 18:18: daily. [place] [address] Medical Branch simvastatin 2017-0 Yes 40mg Take 40 mg Univers 40 mg 6-15 by mouth ity of tablet 18:18: at [place] [address] bedtime. Medical Branch traZODONE 2017-0 Yes 100mg Take Univers 100 mg 6-15 100-200 mg ity of tablet 18:18: by mouth [place] [address] at bedtime Medical as needed Branch for Insomnia. ARIPiprazol 2017-0 Yes 20mg Take 20 mg Univers e (ABILIFY) 6-15 by mouth ity of 20 mg 18:18: at [place] [address] bedtime. Medical Branch suvorexant 2017-0 Yes 20mg Take 20 mg U nivers (BELSOMRA) 6-15 by mouth ity o f 20 mg Tab 18:18: at [place] [address] bedtime. Medical Branch prednisoLON 2017-0 Yes 1[drp] 1 Drop Un emanuel E acetate 1 6-15 every 2 ity o f % 18:18: (two) [place] ophthalmic 54 hours as Medic al suspension needed for Bra nch drops Itching. foLIC acid 2017-0 Yes 2mg Take 2 mg Un emanuel 1 mg tablet 6-15 by mouth ity of 18:18: daily. [place] [address] Medical Branch foLIC acid 2017-0 Yes 2mg Take 2 mg Un emanuel 1 mg tablet 6-15 by mouth ity of 13:18: daily. [place] [address] Medical Branch simvastatin 2017-0 Yes 40mg Take 40 mg Univers 40 mg 6-15 by mouth ity of tablet 13:18: at [place] [address] bedtime. Medical Branch traZODONE 2017-0 Yes 100mg Take Univers 100 mg 6-15 100-200 mg ity of tablet 13:18: by mouth [place] [address] at bedtime Medical as needed Branch for Insomnia. ARIPiprazol [id number] Yes 20mg Take 20 mg Univers e (ABILIFY) 6-15 by mouth ity of 20 mg 13:18: at [place] [address] bedtime. Medical Branch suvorexant [id number] Yes 20mg Take 20 mg U nivers (BELSOMRA) 6-15 by mouth ity o f 20 mg Tab 13:18: at [place] [address] bedtime. Medical Branch prednisoLON 2017-0 Yes 1[drp] 1 Drop Un emanuel E acetate 1 6-15 every 2 ity o f % 13:18: (two) [place] ophthalmic 54 hours as Medic al suspension needed for Bra nch drops Itching. foLIC acid 2017-0 Yes 2mg Take 2 mg Un emanuel 1 mg tablet 6-15 by mouth ity of 13:18: daily. [place] [address] Medical Branch simvastatin 2017-0 Yes 40mg Take 40 mg Univers 40 mg 6-15 by mouth ity of tablet 13:18: at [place] [address] bedtime. Medical Branch traZODONE 2017-0 Yes 100mg Take Univers 100 mg 6-15 100-200 mg ity of tablet 13:18: by mouth [place] [address] at bedtime Medical as needed Branch for Insomnia. ARIPiprazol 2017-0 Yes 20mg Take 20 mg Univers e (ABILIFY) 6-15 by mouth ity of 20 mg 13:18: at [place] [address] bedtime. Medical Branch suvorexant 2017-0 Yes 20mg Take 20 mg U nivers (BELSOMRA) 6-15 by mouth ity o f 20 mg Tab 13:18: at [place] [address] bedtime. Medical Branch prednisoLON 2017-0 Yes 1[drp] 1 Drop Un emanuel E acetate 1 6-15 every 2 ity o f % 13:18: (two) [place] ophthalmic 54 hours as Medic al suspension needed for Bra nch drops Itching. foLIC acid 20170 Yes 2mg Take 2 mg Un emanuel 1 mg tablet 6-15 by mouth ity of 13:18: daily. [place] [address] Medical Branch simvastatin 2017-0 Yes 40mg Take 40 mg Univers 40 mg 6-15 by mouth ity of tablet 13:18: at [place] [address] bedtime. Medical Branch traZODONE 2017 Yes 100mg Take Univers 100 mg 6-15 100-200 mg ity of tablet 13:18: by mouth [place] [address] at bedtime Medical as needed Branch for Insomnia. ARIPiprazol Yes 20mg Take 20 mg Univers e (ABILIFY) 6-15 by mouth ity of 20 mg 13:18: at [place] [address] bedtime. Medical Branch suvorexant [id number] Yes 20mg Take 20 mg U nivers (BELSOMRA) 6-15 by mouth ity o f 20 mg Tab 13:18: at [place] [address] bedtime. Medical Branch prednisoLON 20170 Yes 1[drp] 1 Drop Un emanuel E acetate 1 6-15 every 2 ity o f % 13:18: (two) [place] ophthalmic 54 hours as Medic al suspension needed for Bra nch drops Itching. foLIC acid 2017-0 Yes 2mg Take 2 mg Un emanuel 1 mg tablet 6-15 by mouth ity of 13:18: daily. [place] [address] Medical Branch simvastatin 2017-0 Yes 40mg Take 40 mg Univers 40 mg 6-15 by mouth ity of tablet 13:18: at [place] [address] bedtime. Medical Branch traZODONE 2017-0 Yes 100mg Take Univers 100 mg 6-15 100-200 mg ity of tablet 13:18: by mouth [place] [address] at bedtime Medical as needed Branch for Insomnia. ARIPiprazol 2017-0 Yes 20mg Take 20 mg Univers e (ABILIFY) 6-15 by mouth ity of 20 mg 13:18: at [place] [address] bedtime. Medical Branch suvorexant 2017-0 Yes 20mg Take 20 mg U nivers (BELSOMRA) 6-15 by mouth ity o f 20 mg Tab 13:18: at [place] [address] bedtime. Medical Branch prednisoLON 2017-0 Yes 1[drp] 1 Drop Un emanuel E acetate 1 6-15 every 2 ity o f % 13:18: (two) [place] ophthalmic 54 hours as Medic al suspension needed for Bra nch drops Itching. foLIC acid 2017-0 Yes 2mg Take 2 mg Un emanuel 1 mg tablet 6-15 by mouth ity of 13:18: daily. [place] [address] Medical Branch simvastatin 2017-0 Yes 40mg Take 40 mg Univers 40 mg 6-15 by mouth ity of tablet 13:18: at [place] [address] bedtime. Medical Branch traZODONE 20170 Yes 100mg Take Univers 100 mg 6-15 100-200 mg ity of tablet 13:18: by mouth [place] [address] at bedtime Medical as needed Branch for Insomnia. ARIPiprazol 20170 Yes 20mg Take 20 mg Univers e (ABILIFY) 6-15 by mouth ity of 20 mg 13:18: at [place] [address] bedtime. Medical Branch suvorexant 2017-0 Yes 20mg Take 20 mg U nivers (BELSOMRA) 6-15 by mouth ity o f 20 mg Tab 13:18: at [place] [address] bedtime. Medical Branch prednisoLON 2017-0 Yes 1[drp] 1 Drop Un emanuel E acetate 1 6-15 every 2 ity o f % 13:18: (two) [place] ophthalmic 54 hours as Medic al suspension needed for Bra nch drops Itching. foLIC acid 2017-0 Yes 2mg Take 2 mg Un emanuel 1 mg tablet 6-15 by mouth ity of 13:18: daily. [place] [address] Medical Branch simvastatin 2017-0 Yes 40mg Take 40 mg Univers 40 mg 6-15 by mouth ity of tablet 13:18: at [place] [address] bedtime. Medical Branch traZODONE 2017-0 Yes 100mg Take Univers 100 mg 6-15 100-200 mg ity of tablet 13:18: by mouth [place] [address] at bedtime Medical as needed Branch for Insomnia. ARIPiprazol 2017-0 Yes 20mg Take 20 mg Univers e (ABILIFY) 6-15 by mouth ity of 20 mg 13:18: at [place] [address] bedtime. Medical Branch suvorexant 2017-0 Yes 20mg Take 20 mg U nivers (BELSOMRA) 6-15 by mouth ity o f 20 mg Tab 13:18: at [place] [address] bedtime. Medical Branch prednisoLON 2017-0 Yes 1[drp] 1 Drop Un emanuel E acetate 1 6-15 every 2 ity o f % 13:18: (two) [place] ophthalmic 54 hours as Medic al suspension needed for Bra nch drops Itching. foLIC acid 2017-0 Yes 2mg Take 2 mg Un emanuel 1 mg tablet 6-15 by mouth ity of 13:18: daily. [place] [address] [facility] simvastatin 2017-0 Yes 40mg Take 40 mg Univers 40 mg 6-15 by mouth ity of tablet 13:18: at [place] [address] bedtime. Medical Branch traZODONE 2017-0 Yes 100mg Take Univers 100 mg 6-15 100-200 mg ity of tablet 13:18: by mouth [place] [address] at bedtime Medical as needed Branch for Insomnia. ARIPiprazol 2017-0 Yes 20mg Take 20 mg Univers e (ABILIFY) 6-15 by mouth ity of 20 mg 13:18: at [place] [address] bedtime. Medical Branch suvorexant 2017-0 Yes 20mg Take 20 mg U nivers (BELSOMRA) 6-15 by mouth ity o f 20 mg Tab 13:18: at [place] [address] bedtime. Medical Branch prednisoLON 2017-0 Yes 1[drp] 1 Drop Un emanuel E acetate 1 6-15 every 2 ity o f % 13:18: (two) [place] [facility] 54 hours as Medic al suspension needed for Bra nch drops Itching. foLIC acid 2017-0 Yes 2mg Take 2 mg Un emanuel 1 mg tablet 6-15 by mouth ity of 13:18: daily. [place] [address] [facility] simvastatin 2017-0 Yes 40mg Take 40 mg Univers 40 mg 6-15 by mouth ity of tablet 13:18: at [place] [address] bedtime. Medical Branch traZODONE 2017-0 Yes 100mg Take Univers 100 mg 6-15 100-200 mg ity of tablet 13:18: by mouth [place] [address] at bedtime Medical as needed Branch for Insomnia. ARIPiprazol 20170 Yes 20mg Take 20 mg Univers e (ABILIFY) 6-15 by mouth ity of 20 mg 13:18: at [place] [address] bedtime. Medical Branch suvorexant 20170 Yes 20mg Take 20 mg U nivers (BELSOMRA) 6-15 by mouth ity o f 20 mg Tab 13:18: at [place] [address] bedtime. Medical Branch prednisoLON 2017 Yes 1[drp] 1 Drop Un emanuel E acetate 1 6-15 every 2 ity o f % 13:18: (two) [place] [facility] 54 hours as Medic al suspension needed for Bra nch drops Itching. foLIC acid 2017 Yes 2mg Take 2 mg Un emanuel 1 mg tablet 6-15 by mouth ity of 13:18: daily. [place] [address] [facility] simvastatin 2017-0 Yes 40mg Take 40 mg Univers 40 mg 6-15 by mouth ity of tablet 13:18: at [place] [address] bedtime. Medical Branch traZODONE 20170 Yes 100mg Take Univers 100 mg 6-15 100-200 mg ity of tablet 13:18: by mouth [place] [address] at bedtime Medical as needed Branch for Insomnia. ARIPiprazol Yes 20mg Take 20 mg Univers e (ABILIFY) 6-15 by mouth ity of 20 mg 13:18: at [place] [address] bedtime. Medical Branch suvorexant Yes 20mg Take 20 mg U nivers (BELSOMRA) 6-15 by mouth ity o f 20 mg Tab 13:18: at [place] [address] bedtime. Medical Branch prednisoLON 2017 Yes 1[drp] 1 Drop Un emanuel E acetate 1 6-15 every 2 ity o f % 13:18: (two) [place] [facility] 54 hours as Medic al suspension needed for Bra nch drops Itching. foLIC acid 2017-0 Yes 2mg Take 2 mg Un emanuel 1 mg tablet 6-15 by mouth ity of 13:18: daily. [place] [address] [facility] simvastatin 2017-0 Yes 40mg Take 40 mg Univers 40 mg 6-15 by mouth ity of tablet 13:18: at [place] [address] bedtime. Medical Branch traZODONE 2017-0 Yes 100mg Take Univers 100 mg 6-15 100-200 mg ity of tablet 13:18: by mouth [place] 53 at bedtime Medical as needed Branch for Insomnia. ARIPiprazol Yes 20mg Take 20 mg Univers e (ABILIFY) 6-15 by mouth ity of 20 mg 13:18: at [facility] 54 bedtime. Medical Branch suvorexant Yes 20mg Take 20 mg U nivers (BELSOMRA) 6-15 by mouth ity o f 20 mg Tab 13:18: at [place] 53 bedtime. Medical Branch prednisoLON 2016- Yes 1[drp] 1 Drop Un emanuel E acetate 1 6-15 every 2 ity o f % 13:18: (two) [place] [facility] 54 hours as Medic al suspension needed for Bra nch drops Itching. Zetia No Notes: Memoria 08-10 (Same as: l 14:00: Zetia) [place] Dexilant 0 No 60 mg, Memoria 08-10 Route: PO, l 14:00: Drug form: [place] 00 DRC, Daily, Dosing Weight 134.5, kg, Start date: 08/11/15 9:00:00 CDT, Duration: 30 day, Stop date: 09/09/15 9:00:00 CDT Nuvigil 2015- No 250 mg, Memoria 08-10 Route: PO, l 14:00: Drug form: [place] 00 TAB, Daily, Dosing Weight 134.5, kg, Start date: 08/11/15 9:00:00 CDT, Duration: 30 day, Stop date: 09/09/15 9:00:00 CDT Abilify 0 No 20 mg, Memoria 08-10 Route: PO, l 14:00: Drug form: [place] 00 TAB, Daily, Dosing Weight 134.5, kg, Start date: 08/11/15 9:00:00 CDT, Duration: 30 day, Stop date: 09/09/15 9:00:00 CDT Deplin 2015-0 No 15 mg, Memoria 08-10 Route: PO, l 14:00: Drug form: [place] 00 CAP, Daily, Dosing Weight 134.5, kg, [...] 08-10 Route: PO, l 14:00: Drug form: [place] 00 DRC, Daily, Dosing Weight 134.5, kg, Start date: 08/11/15 9:00:00 CDT, Duration: 30 day, Stop date: 09/09/15 9:00:00 CDT Nuvigil 2015-0 No 250 mg, Memoria 08-10 Route: PO, l 14:00: Drug form: [place] 00 TAB, Daily, Dosing Weight 134.5, kg, Start date: 08/11/15 9:00:00 CDT, Duration: 30 day, Stop date: 09/09/15 9:00:00 CDT Abilify 2015-0 No 20 mg, Memoria 08-10 Route: PO, l 14:00: Drug form: [place] 00 TAB, Daily, Dosing Weight 134.5, kg, [...] No Notes: Memoria 08-10 (Same as: l 14:: Zetia) [place] 00 Dexilant 2015-0 No 60 mg, Memoria 08-10 Route: PO, l 14:00: Drug form: [place] 00 DRC, Daily, Dosing Weight 134.5, kg, Start date: 08/11/15 9:00:00 CDT, Duration: 30 day, Stop date: 09/09/15 9:00:00 CDT Nuvigil 2015-0 No 250 mg, Memoria 7 Route: PO, l 14:00: Drug form: [place] 00 TAB, Daily, Dosing Weight 134.5, kg, [...] 08-10 Route: PO, l 14:00: Drug form: [place] 00 CAP, Daily, Dosing Weight 134.5, kg, [...] day, Stop date: 09/09/15 9:00:00 CDT Zetia 2016-0 No Notes: Memoria 08-10 (Same as: l 14:00: Zetia) Dexilant 2015-0 No 60 mg, Memoria 08-10 Route: PO, l 14:00: Drug form: [place] 00 DRC, Daily, Dosing Weight 134.5, kg, Start date: 08/11/15 9:00:00 CDT, Duration: 30 day, Stop date: 09/09/15 9:00:00 CDT Nuvigil 2015-0 No 250 mg, Memoria 08-10 Route: PO, l 14:00: Drug form: [place] 00 TAB, Daily, Dosing Weight 134.5, kg, Start date: 08/11/15 9:00:00 CDT, Duration: 30 day, Stop date: 09/09/15 9:00:00 CDT Abilify 2015-0 No 20 mg, Memoria 08-10 Route: PO, l 14:00: Drug form: [place] 00 TAB, Daily, Dosing Weight 134.5, kg, [...] 08-10 Route: PO, l 14:00: Drug form: [place] 00 CAP, Daily, Dosing Weight 134.5, kg, [...] 08-10 Route: PO, l 14:00: Drug form: [place] 00 TAB, Daily, Dosing Weight 134.5, kg, Start date: 08/11/15 9:00:00 CDT, Duration: 30 day, Stop date: 09/09/15 9:00:00 CDT Abilify 2016-0 No 20 mg, Memoria 08-10 Route: PO, l 14:00: Drug form: [place] 00 TAB, Daily, Dosing Weight 134.5, kg, Start date: 08/11/15 9:00:00 CDT, Duration: 30 day, Stop date: 09/09/15 9:00:00 CDT Deplin 2016-0 No 15 mg, Memoria 08-10 Route: PO, l 14:00: Drug form: [place] 00 CAP, Daily, Dosing Weight 134.5, kg, [...] 6-30 Route: PO, l 22:00: Drug form: [place] 00 TAB, BID, Dosing Weight 134.5, kg, Start date: 08/10/15 17:00:00 CDT Savella 2016-0 No 50 mg, Memoria 6-30 Route: PO, l 22:00: Drug form: [place] 00 TAB, BID, Dosing Weight 134.5, kg, Start date: 08/10/15 17:00:00 CDT Savella 2016-0 No 50 mg, Memoria 6-30 Route: PO, l 22:00: Drug form: [place] 00 TAB, BID, Dosing Weight 134.5, kg, [...] kg, Start date: 08/10/15 17:00:00 CDT Savella 2015-0 No 50 mg, Memoria 6-30 Route: PO, l 22:00: Drug form: [place] 00 TAB, BID, Dosing Weight 134.5, kg, Start date: 08/10/15 17:00:00 CDT Ketorolac 2015-0 No 4 days Memor ia 6-30 l 17:00: MEDICATION [place] WASTE Product Size: 30 mg Product Wasted: _15__ mg Ketorolac 2015-0 No 4 days Memor ia 6-30 l 17:00: MEDICATION [place] WASTE Product Size: 30 mg Product Wasted: _15__ mg Ketorolac 2015-0 No 4 days Memor ia 6-30 l 17:00: MEDICATION [place] WASTE Product Size: 30 mg Product Wasted: _15__ mg Ketorolac 2015-0 No 4 days Memor ia 6-30 l 17:00: MEDICATION [place] WASTE Product Size: 30 mg Product Wasted: _15__ mg Ketorolac 2015-0 No 4 days Memor ia 6-30 l 17:00: MEDICATION [place] WASTE Product Size: 30 mg Product Wasted: _15__ mg Ketorolac 2015-0 No 4 days Memor ia 6-30 l 17:00: MEDICATION [place] WASTE Product Size: 30 mg Product Wasted: _15__ mg Insulin, No Notes: Memoria Aspart, 630 Roll in l Human 16:29: palms of [place] hands gently; Do not shake vigorously . (Same as: NovoLOG) "single patient use only" WASTE: F/P - Black; E - Municipal Trash Bin Stable for 28 days at room temperatur e. Expires in days from ____Date Levalbutero No Notes: SEE Memoria l 6-30 RT l 16:29: DOCUMENTAT [place] 00 ION (Same as:Xopenex ) Non-Formul george [...] 6-30 (Same as: l / 16:29: Duoneb) Ipratropium 00 [place] 0.167 MG/ML Inhalant Solution [DuoNeb] celecoxib Yes Notes: Memori a 6-30 NSAID. l 16:29: Please check indication . Not for seizure. (Same As: CeleBREX) 72 HR Yes Notes: Memoria Scopolamine 6-30 Change l 0.0139 16:29: patch [place] MG/HR 00 every 72 Transdermal hours Patch (Same as: Transderm- Scop) Midazolam No Notes: Memori a 6-30 (Same as: l 16:29: Versed) [place] 00 MEDICATION WASTE Product Size: 2 mg Product [...] ) Hydromorpho No Notes: [place] summer ne 30 (Same as: l 16:29: Dilaudid) Acetaminoph No Notes: [place] summer en 08-09 Infuse l 16:29: over 15 minutes Do not exceed 4gm/day of acetaminop hen MEDICATION WASTE Product Size: 1000 mg Product Wasted: ___ mg Ibuprofen No Notes: Memori a 30 (Same as: l 16:29: Motrin) "Do Not [...] ) Non-Formul george Naloxone No Notes: Memoria 30 Same as l 16:29: Narcan Meperidine No Notes: Memor ia 08-09 (Same as: l 16:29: Demerol) "Use Precaution in Elderly, Seizure disorders, and Renal impairment " Promethazin No Notes: Do M emoria e 08-09 not give l 16:29: IV push. (Same as: Phenergan) Dexamethaso No Notes: [place] summer ne 08-09 Concentrat l 16:29: ion: 4mg/ml Ondansetron No Notes: [place] summer -30 (Same as: l 16:29: Zofran) MEDICATION WASTE Product Size: 4 mg Product Wasted: ___ mg Diphenhydra No Notes: [place] summer mine 6-30 (Same as: l 16:29: Benadryl) [place] 00 Albuterol No Notes: SEE Me moria 0.83 MG/ML -30 RT l Inhalant 16:29: DOCUMENTAT Her brito Solution 00 ION (Same as: Proventil) Atropine No Notes: Mem oria 6-30 MEDICATION l 16:29: WASTE [place] 00 Product Size: 0.4 mg Product Wasted: _0.2__ mg Glycopyrrol No Notes: [place] summer ate -30 (Same as: l 16:29: Robinul) Phenylephri No Notes: [place] summer ne 30 Same as: l 16:29: Erik-Syneph rine Albuterol No Notes: Memori a 0.833 MG/ML 30 (Same as: l / 16:29: Duoneb) Ipratropium 00 [place] 0.167 MG/ML Inhalant Solution [DuoNeb] celecoxib Yes Notes: Memori a 6-30 NSAID. l 16:29: Please [place] 00 check indication . Not for seizure. (Same As: CeleBREX) 72 HR Yes Notes: Memoria Scopolamine -30 Change l 0.0139 16:29: patch [place] MG/HR 00 every 72 Transdermal hours Patch (Same as: Transderm- Scop) Midazolam No Notes: Memori a 6-30 (Same as: l 16:29: Versed) MEDICATION WASTE Product Size: 2 mg Product Wasted: _1__ mg Ephedrine No Notes: Memori a 6-30 (Same as: l 16:29: ePHEDrine [place] 00 Sulfate) Flumazenil No Notes: Memor ia [...] Memoria l 6-30 RT l 16:29: DOCUMENTAT [place] 00 ION (Same as:Xopenex ) Non-Formul george [...] 6-30 (Same as: l / 16:29: Duoneb) [place] Ipratropium 00 [place] 0.167 MG/ML Inhalant Solution [DuoNeb] celecoxib Yes Notes: Memori a 6-30 NSAID. l 16:29: Please [place] 00 check indication . Not for seizure. [...] ve free. Oxycodone No Notes: Memori a 30 (Same as: l 16:29: Roxicodone ) Hydromorpho No Notes: [place] summer ne 08-09 (Same as: l 16:29: Dilaudid) Acetaminoph No Notes: [place] summer en 08-09 Infuse l 16:29: over 15 minutes Do not exceed 4gm/day of acetaminop hen MEDICATION WASTE Product Size: 1000 mg Product Wasted: ___ mg Ibuprofen No Notes: Memori a 08-09 (Same as: l 16:29: Motrin) "Do Not [...] ____Date Levalbutero No Notes: SEE Memoria l 30 RT l 16:29: DOCUMENTAT ION (Same as:Xopenex [...] summer ne 08-09 Concentrat l 16:29: ion: 4mg/ml Ondansetron No Notes: [place] 30 (Same as: l 16:29: Zofran) MEDICATION WASTE [...] as: l / 16:29: Duoneb) Ipratropium 00 [place] 0.167 MG/ML Inhalant Solution [DuoNeb] celecoxib Yes Notes: Memori a 6-30 NSAID. l 16:29: Please [place] 00 check indication . Not for seizure. (Same As: CeleBREX) 72 HR Yes Notes: Memoria Scopolamine -30 Change l 0.0139 16:29: patch [place] MG/HR 00 every 72 Transdermal hours Patch [...] Memoria l 6-30 RT l 16:29: DOCUMENTAT [place] 00 ION (Same as:Xopenex ) Non-Formul george [...] 00 Phenylephri No Notes: [place] summer ne 6-30 Same as: l 16:29: Erik-Syneph rine Albuterol No Notes: Memori a 0.833 MG/ML 6-30 (Same as: l / 16:29: Duoneb) [place] Ipratropium 00 [place] 0.167 MG/ML Inhalant Solution [DuoNeb] celecoxib Yes Notes: Memori a 6-30 NSAID. l 16:29: Please [place] 00 check indication . Not for seizure. (Same As: CeleBREX) 72 HR Yes Notes: Memoria Scopolamine 6-30 Change l 0.0139 16:29: patch [place] MG/HR 00 every 72 Transdermal hours Patch (Same as: Transderm- Scop) Midazolam No Notes: Memori a 6-30 (Same as: l 16:29: Versed) [place] 00 MEDICATION WASTE Product Size: 2 mg Product Wasted: _1__ mg Ephedrine No Notes: Memori a 6-30 (Same as: l 16:29: ePHEDrine [place] 00 Sulfate) Flumazenil No Notes: Memor ia 6-30 (Same as: l 16:29: Romazicon) [place] 00 Calcium No 1,000 mL, Memor ia Chloride 6-30 Rate: 125 l 0.0014 16:29: ml/hr, [place] MEQ/ML / 00 Infuse Potassium over: 8 [...] a 6-30 (Same as: l 16:29: Normodyne, [place] 00 Trandate) Push over 2 minutes Give bolus over 2-3 minutes. Metoprolol No Notes: Memor ia 6-30 (Same as: l 16:29: Lopressor) Push over 2 minutes Morphine No Notes: Memoria 6-30 (Same l 16:29: as:MORPhin [place] 00 e Sulfate) Fentanyl No Notes: Memoria 6-30 (Same as: l 16:29: Sublimaze) Preservati ve free. Oxycodone No Notes: Memori a 30 (Same as: l 16:29: Roxicodone ) Hydromorpho No Notes: [place] summer ne 08-09 (Same as: l 16:29: Dilaudid) Acetaminoph No Notes: [place] summer en 08-09 Infuse l 16:29: over 15 minutes Do not exceed 4gm/day of acetaminop hen MEDICATION WASTE Product Size: 1000 mg Product Wasted: ___ mg Ibuprofen No Notes: Memori a 08-09 (Same as: l 16:29: Motrin) "Do Not [...] summer ne 08-09 Concentrat l 16:29: ion: 4mg/ml Ondansetron No Notes: [place] summer 08-09 (Same as: l 16:29: Zofran) MEDICATION WASTE [...] as: l / 16:29: Duoneb) Ipratropium 00 [place] 0.167 MG/ML Inhalant Solution [DuoNeb] celecoxib Yes Notes: Memori a 6-30 NSAID. l 16:29: Please [place] 00 check indication . Not for seizure. [...] a 6-30 (Same as: l 16:29: ePHEDrine [place] 00 Sulfate) Flumazenil No Notes: Memor ia 6-30 (Same as: l 16:29: Romazicon) Calcium No 1,000 mL, Memor ia Chloride 6-30 Rate: 125 l 0.0014 16:29: ml/hr, [place] MEQ/ML / 00 Infuse Potassium over: 8 [...] / 6-30 (Same as: l Hydrocodone 16:24: [place] Judith nn Bitartrate 00 325/5) Do 5 MG Oral not exceed Tablet 4gm/day of acetaminop hen. Tramadol No Notes: Not Mem oria 6-30 to exceed l 16:24: 400mg/day. [place] 00 (Same As: Ultram) Acetaminoph No Notes: Do M emoria en 6-30 not exceed l 16:24: 4 gm/day. [place] 00 (Same as: Tylenol) Hydromorpho No Notes: [place] summer ne 6-30 (Same as: l 16:24: Dilaudid) [place] 00 Acetaminoph No Notes: [place] summer en 325 MG / 6-30 (Same as: l Hydrocodone 16:24: [place] nn Bitartrate 00 325/5) Do 5 MG Oral not exceed Tablet 4gm/day of acetaminop hen. Tramadol No Notes: Not Mem oria 6-30 to exceed l 16:24: 400mg/day. [place] 00 (Same As: Ultram) Acetaminoph No Notes: Do M emoria en 6-30 not exceed l 16:24: 4 gm/day. [place] 00 (Same as: Tylenol) Hydromorpho No Notes: Al[place] summer ne 6-30 (Same as: l 16:24: Dilaudid) [place] 00 Acetaminoph No Notes: Al[place] summer en 325 MG / 6-30 (Same as: l Hydrocodone 16:24: [place] nn Bitartrate 00 325/5) Do 5 MG Oral not exceed Tablet 4gm/day of acetaminop hen. Tramadol No Notes: Not Mem oria 6-30 to exceed l 16:24: 400mg/day. [place] 00 (Same As: Ultram) Acetaminoph No Notes: Do M emoria en 6-30 not exceed l 16:24: 4 gm/day. [place] 00 (Same as: Tylenol) Hydromorpho No Notes: [place] summer ne 6-30 (Same as: l 16:24: Dilaudid) Acetaminoph No Notes: [place] summer en 325 MG / 6-30 (Same as: l Hydrocodone 16:24: [place] nn Bitartrate 00 325/5) Do 5 [...] / 6-30 (Same as: l Hydrocodone 16:24: [place] nn Bitartrate 00 325/5) Do 5 [...] / 6-30 (Same as: l Hydrocodone 16:24: [place] nn Bitartrate 00 325/5) Do 5 [...] ONCE, Stop date: 08/10/15 11:11:00 CDT phenylephri 2016-0 No Route: IV, Memoria ne (ANES) - Drug form: l 16:01: INJ, ONCE, Stop [...] 2016-0 No Route: IV, Me moria (ANES) 6- Drug form: l 15:45: INJ, [...] 6-30 Drug form: l 15:45: INJ, ONCE, [place] 00 Stop date: 08/10/15 10:45:00 CDT midazolam 2016-0 No Route: IV, Me moria (ANES) 6-30 Drug form: l 15:45: SOLN, [place] 00 ONCE, Stop date: 08/10/15 10:45:00 CDT succinylcho 2016-0 No Route: IV, Memoria line (ANES) 6-30 Drug form: l 15:45: INJ, ONCE, [place] 00 Stop date: 08/10/15 10:45:00 CDT propofol 2016-0 [...] (ANES) 6-30 Drug form: l 15:45: SOLN, [place] 00 ONCE, Stop date: 08/10/15 10:45:00 CDT succinylcho 2016-0 No Route: IV, Memoria line (ANES) 6-30 Drug form: l 15:45: INJ, ONCE, Stop date: 08/10/15 10:45:00 CDT propofol 2016-0 No Route: IV, Mem oria (ANES) 6-30 Drug form: l 15:45: INJ, ONCE, [place] 00 Stop date: 08/10/15 10:45:00 CDT lidocaine 2016-0 No Route: IV, Me moria (ANES) 6-30 Drug form: l 15:45: INJ, ONCE, Stop date: 08/10/15 10:45:00 CDT fentaNYL 2016-0 No Route: IV, Mem oria (ANES) 6-30 Drug form: l 15:45: INJ, ONCE, Stop date: 08/10/15 10:45:00 CDT midazolam 2016-0 No Route: IV, Me moria (ANES) 6-30 Drug form: l 15:45: SOLN, [place] 00 ONCE, Stop date: 08/10/15 10:45:00 CDT succinylcho [...] (ANES) 6-30 Drug form: l 15:45: SOLN, [place] 00 ONCE, Stop date: 08/10/15 10:45:00 CDT ePHEDrine 2016-0 No Route: IV, Me moria (ANES) 6-30 Drug form: l 15:40: INJ, ONCE, Stop date: 08/10/15 10:40:00 CDT ePHEDrine 2016-0 No Route: IV, Me moria (ANES) 6-30 Drug form: l 15:40: INJ, ONCE, Stop date: 08/10/15 10:40:00 CDT ePHEDrine 2016-0 No Route: IV, Me moria (ANES) 6-30 Drug form: l 15:40: INJ, ONCE, Stop date: 08/10/15 10:40:00 CDT ePHEDrine 2016-0 No Route: IV, Me moria (ANES) 6-30 Drug form: l 15:40: INJ, ONCE, Stop date: 08/10/15 10:40:00 CDT ePHEDrine 2016-0 No Route: IV, Me moria (ANES) 6-30 Drug form: l 15:40: INJ, ONCE, Stop date: 08/10/15 10:40:00 CDT ePHEDrine 2016-0 No Route: IV, Me moria (ANES) 6-30 Drug form: l 15:40: INJ, ONCE, Stop date: 08/10/15 10:40:00 CDT ceFAZolin 2016-0 No Route: IV, Me [...] INJ (ANES) 6-30 Total l 14:51: Volume: [place] 00 1,000, Start date: 08/10/15 9:51:00 CDT, Stop date: 08/10/15 10:51:00 CDT LR 1000 mL No Route: IV, M emoria INJ (ANES) 6-30 Total l 14:51: Volume: [place] 00 1,000, Start date: 08/10/15 9:51:00 CDT, Stop date: 08/10/15 10:51:00 CDT LR 1000 mL No Route: IV, M emoria INJ (ANES) 6-30 Total l 14:51: Volume: [place] 00 1,000, Start date: 08/10/15 9:51:00 CDT, Stop date: 08/10/15 10:51:00 CDT LR 1000 mL No Route: IV, M emoria INJ (ANES) 6-30 Total l 14:51: Volume: [place] 00 1,000, Start date: 08/10/15 9:51:00 CDT, Stop date: 08/10/15 10:51:00 CDT LR 1000 mL No Route: IV, M emoria INJ (ANES) 6-30 Total l 14:51: Volume: [place] 00 1,000, Start date: 08/10/15 9:51:00 CDT, Stop date: 08/10/15 10:51:00 CDT LR 1000 mL No Route: IV, M emoria INJ (ANES) 6-30 Total l 14:51: Volume: [place] 00 1,000, Start date: 08/10/15 9:51:00 CDT, Stop date: 08/10/15 10:51:00 CDT Insulin, No Notes: Memoria Aspart, 6-30 Roll in l Human 13:01: palms of [place] 00 hands gently; Do not shake vigorously . (Same as: NovoLOG) "single patient use only" WASTE: F/P - Black; E - Municipal Trash Bin Stable for 28 days at room temperatur e. Expires in days from ____Date 200 ACTUAT No Notes: Memor ia Albuterol 630 Same as: l 0.09 13:01: Ventolin [place] [...] Expires in days from ____Date 200 ACTUAT 2016-0 No Notes: Memor ia Albuterol 6-30 Same as: l 0.09 13:01: Ventolin [place] MG/ACTUAT 00 HFA WASTE: Metered Aerosol - Dose Return to Inhal[facility] Pharmacy Calcium No 1,000 mL, Memor ia Chloride 6-30 Rate: 25 l 0.0014 13:01: ml/hr, [place] MEQ/ML / 00 Infuse Potassium over: 40 Chloride hr, Route: 0.004 IV, Dosing MEQ/ML / Weight Sodium 134.091 Chloride kg, Total 0.103 Volume: MEQ/ML / 1,000, Sodium Start Lactate date: 0.028 08/09/16 MEQ/ML 8:01:00 Injectable CDT, Solution Duration: 30 day, Stop date: 09/09/15 8:00:00 CDT Insulin, No Notes: Memoria Aspart, 6-30 Roll in l Human 13:01: palms of [place] 00 hands gently; Do not shake vigorously . (Same as: NovoLOG) "single patient use only" WASTE: F/P - Black; E - Municipal Trash Bin Stable for 28 days at room temperatur e. Expires in days from ____Date 200 ACTUAT No Notes: Memor ia Albuterol 6-30 Same as: l 0.09 13:01: Ventolin [place] MG/ACTUAT 00 HFA Metered WASTE: Dose Aerosol - Inhaler Return to Pharmacy Calcium No 1,000 mL, Memor ia Chloride 6-30 Rate: 25 l 0.0014 13:01: ml/hr, [place] MEQ/ML / 00 Infuse Potassium over: 40 Chloride hr, Route: 0.004 IV, Dosing MEQ/ML / Weight Sodium 134.091 Chloride kg, Total 0.103 Volume: MEQ/ML / 1,000, Sodium Start Lactate date: 0.028 08/09/16 MEQ/ML 8:01:00 Injectable CDT, Solution Duration: 30 day, Stop date: 09/09/15 8:00:00 CDT Insulin, No Notes: Memoria Aspart, 6-30 Roll in l Human 13:01: palms of [place] 00 hands gently; Do not shake vigorously [...] 6-30 Rate: 25 l 0.0014 13:01: ml/hr, [place] MEQ/ML / 00 Infuse Potassium over: 40 Chloride hr, Route: 0.004 IV, Dosing MEQ/ML / Weight Sodium 134.091 Chloride kg, Total 0.103 Volume: MEQ/ML / 1,000, Sodium Start Lactate date: 0.028 0630/16 MEQ/ML 8:01:00 Injectable CDT, Solution Duration: 30 day, Stop date: 09/09/15 8:00:00 CDT Insulin, No Notes: Memoria Aspart, 6-30 Roll in l Human 13:01: palms of [place] 00 hands gently; Do not shake vigorously . (Same as: NovoLOG) "single patient use only" WASTE: F/P - Black; E - Municipal Trash Bin Stable for 28 days at room temperatur e. Expires in days from ____Date 200 ACTUAT No Notes: Memor ia Albuterol 6-30 Same as: l 0.09 13:01: Ventolin [place] MG/ACTUAT 00 HFA WASTE: Metered Aerosol - Dose Return to [facility]hal[facility] Pharmacy Calcium No 1,000 mL, Memor ia Chloride 6-30 Rate: 25 l 0.0014 13:01: ml/hr, [place] MEQ/ML / 00 Infuse Potassium over: 40 Chloride hr, Route: 0.004 IV, Dosing MEQ/ML / Weight Sodium 134.091 Chloride kg, Total 0.103 Volume: MEQ/ML / 1,000, Sodium Start Lactate date: 0.028 06/30/16 MEQ/ML 8:01:00 Injectable CDT, Solution Duration: 30 [...] 6-30 Same as: l 0.09 13:01: Ventolin [place] MG/ACTUAT 00 HFA WASTE: Metered Aerosol - [...] Memoria 6-30 Same as: l 11:00: Ancef [place] 00 BD Normal No Notes: Memori a Saline 6-30 (Same as: l Flush 11:00: BD [place] 00 Posiflush) Ancef No Notes: Memoria 6-30 Same as: l 11:00: Ancef [place] 00 BD Normal No Notes: Memori a Saline 6-30 (Same as: l Flush 11:00: BD [place] 00 Posiflush) Ancef No Notes: Memoria 6-30 Same as: l 11:00: Ancef [place] 00 BD Normal No Notes: Memori a Saline 6-30 (Same as: l Flush 11:00: BD [place] 00 Posiflush) Ancef No Notes: Memoria 6-30 Same as: l 11:00: Ancef [place] 00 BD Normal No Notes: Memori a Saline 6-30 (Same as: l Flush 11:00: BD [place] 00 Posiflush) Ancef No Notes: Memoria 6-30 [...] tab, PO, l Tablet 14:58: Daily, # [place] [Nuvigil] 00 30 tab, 0 Refill(s) armodafinil [...] 0 Judith nn [Belsomra] 00 Refill(s) ezetimibe 2015-0 Yes 10 mg = 1 Mem oria 10 MG Oral 6-23 tab, PO, l Tablet 14:56: Daily, 0 [place] [Zetia] 00 Refill(s) Milnacipran 2016-0 Yes 50 mg = 1 M emoria hydrochlori 6-23 tab, PO, l de 50 MG 14:56: BID, # 60 Herm archana Oral Tablet 00 tab, 3 [Savella] Refill(s) aripiprazol 2015-0 Yes 20 mg = 1 M emoria e 20 MG 6-23 tab, PO, l Oral Tablet 14:56: Daily, 0 He rmann [Abilify] 00 Refill(s) ezetimibe 0 Yes 10 mg = 1 Mem oria 10 MG Oral 6-23 tab, PO, l Tablet 14:56: Daily, 0 [place] [Zetia] 00 Refill(s) Milnacipran 2016-0 Yes 50 mg = 1 M emoria hydrochlori 6-23 tab, PO, l de 50 MG 14:56: BID, # 60 Herm archana Oral Tablet 00 tab, 3 [Savella] Refill(s) aripiprazol 2015-0 Yes 20 mg = 1 M emoria e 20 MG 6-23 tab, PO, l Oral Tablet 14:56: Daily, 0 He rmann [Abilify] 00 Refill(s) ezetimibe 2015-0 Yes 10 mg = 1 Mem oria 10 MG Oral 6-23 tab, PO, l Tablet 14:56: Daily, 0 [place] [Zetia] 00 Refill(s) Milnacipran 2015-0 Yes 50 mg = 1 M emoria hydrochlori 6-23 tab, PO, l de 50 MG 14:56: BID, # 60 Herm archana Oral Tablet 00 tab, 3 [Savella] Refill(s) aripiprazol 2015-0 Yes 20 mg = 1 M emoria e 20 MG 6-23 tab, PO, l Oral Tablet 14:56: Daily, 0 He rmann [Abilify] 00 Refill(s) ezetimibe 2015-0 Yes 10 mg = 1 Mem oria 10 MG Oral 6-23 tab, PO, l Tablet 14:56: Daily, 0 [place] [Zetia] 00 Refill(s) Milnacipran 2016-0 Yes 50 mg = 1 M emoria hydrochlori 6-23 tab, PO, l de 50 MG 14:56: BID, # 60 Herm archana Oral Tablet 00 tab, 3 [Savella] Refill(s) aripiprazol 2016-0 Yes 20 mg = 1 M emoria e 20 MG 6-23 tab, PO, l Oral Tablet 14:56: Daily, 0 He rmann [Abilify] 00 Refill(s) ezetimibe 2015-0 Yes 10 mg = 1 Mem oria 10 MG Oral 6-23 tab, PO, l Tablet 14:56: Daily, 0 [place] [Zetia] 00 Refill(s) Milnacipran 2015-0 Yes 50 mg = 1 M emoria hydrochlori 6-23 tab, PO, l de 50 MG 14:56: BID, # 60 Herm archana Oral Tablet 00 tab, 3 [Savella] Refill(s) aripiprazol Yes 20 mg = 1 M emoria e 20 MG 6-23 tab, PO, l Oral Tablet 14:56: Daily, 0 He rmann [Abilify] 00 Refill(s) ezetimibe 2016-0 Yes 10 mg = 1 Mem oria 10 MG Oral 6-23 tab, PO, l Tablet 14:56: Daily, 0 [place] [Zetia] 00 Refill(s) Milnacipran 2016-0 Yes 50 mg = 1 M emoria hydrochlori 6-23 tab, PO, l de 50 MG 14:56: BID, # 60 Herm archana Oral Tablet 00 tab, 3 [Savella] Refill(s) aripiprazol 2015-0 Yes 20 mg = 1 M emoria e 20 MG 6-23 tab, PO, l Oral Tablet 14:56: Daily, 0 He rmann [Abilify] 00 Refill(s) Tresiba 2016-0 Yes SUB-Q, Memoria FlexTouch 6-23 Daily, 0 l 14:55: Refill(s) [place] 00 0.65 ML 2016-0 Yes 2 mg, Memoria exenatide 6-23 SUB-Q, l 3.08 MG/ML 14:55: qWeek, # 4 H ermann Prefilled 00 ea, 0 Syringe Refill(s) [Bydureon] dexlansopra 2016-0 Yes 60 mg = 1 M emoria zole 60 MG 6-23 cap, PO, l Enteric 14:55: Daily, 0 Randy n Coated 00 Refill(s) Capsule [Dexilant] Tresiba 2016-0 Yes SUB-Q, Memoria FlexTouch 6-23 Daily, 0 l 14:55: Refill(s) [place] 00 0.65 ML 2016-0 Yes 2 mg, Memoria exenatide 6-23 SUB-Q, l 3.08 MG/ML 14:55: qWeek, # 4 H ermann Prefilled 00 ea, 0 Syringe Refill(s) [Bydureon] dexlansopra 2015-0 Yes 60 mg = 1 M emoria zole 60 MG 6-23 cap, PO, l Enteric 14:55: Daily, 0 Randy n Coated 00 Refill(s) Capsule [Dexilant] Tresiba 2016-0 Yes SUB-Q, Memoria FlexTouch 6-23 Daily, 0 l 14:55: Refill(s) [place] 00 0.65 ML 2016-0 Yes 2 mg, Memoria exenatide 6-23 SUB-Q, l 3.08 MG/ML 14:55: qWeek, # 4 H ermann Prefilled 00 ea, 0 Syringe Refill(s) [Bydureon] dexlansopra 2016-0 Yes 60 mg = 1 M emoria zole 60 MG 6-23 cap, PO, l Enteric 14:55: Daily, 0 Randy n Coated 00 Refill(s) Capsule [Dexilant] Tresiba 2016-0 Yes SUB-Q, Memoria FlexTouch 6-23 Daily, 0 l 14:55: Refill(s) [place] 00 0.65 ML 2016-0 Yes 2 mg, Memoria exenatide 6-23 SUB-Q, l 3.08 MG/ML 14:55: qWeek, # 4 H ermann Prefilled 00 ea, 0 Syringe Refill(s) [Bydureon] dexlansopra 2016-0 Yes 60 mg = 1 M emoria zole 60 MG 6-23 cap, PO, l Enteric 14:55: Daily, 0 Randy n Coated 00 Refill(s) Capsule [Dexilant] Tresiba 2015-0 Yes SUB-Q, Memoria FlexTouch 6-23 Daily, 0 l 14:55: Refill(s) [place] 00 0.65 ML 2015- Yes 2 mg, Memoria exenatide 6-23 SUB-Q, l 3.08 MG/ML 14:55: qWeek, # 4 H ermann Prefilled 00 ea, 0 Syringe Refill(s) [Bydureon] dexlansopra Yes 60 mg = 1 M emoria zole 60 MG 6-23 cap, PO, l Enteric 14:55: Daily, 0 Randy n Coated 00 Refill(s) Capsule [Dexilant] Tresiba Yes SUB-Q, Memoria FlexTouch 6-23 Daily, 0 l 14:55: Refill(s) [place] 00 0.65 ML Yes 2 mg, Memoria [...] He rmann Solution 00 [Simponi Aria] Hydrochloro 0 Yes 1 tab, PO, Memoria thiazide 6-23 Daily, 0 l 12.5 MG / 14:54: Refill(s) Her brito Lisinopril 00 10 MG Oral Tablet solifenacin Yes 10 mg = 1 M emoria succinate 6-23 tab, PO, l 10 MG Oral 14:54: Daily, 0 Her brito Tablet 00 Refill(s) [VESICARE] pilocarpine 0 Yes 7.5 mg = 1 Memoria 7.5 [...] roquine 6-23 PO, Daily, l 14:53: 0 [place] 00 Refill(s) pilocarpine 2015-0 Yes 7.5 mg [...] roquine 6-23 PO, Daily, l 14:53: 0 [place] 00 Refill(s) pilocarpine 2016-0 Yes 7.5 mg [...] roquine 6-23 PO, Daily, l 14:53: 0 [place] 00 Refill(s) Hydroxychlo 2016-0 Yes 200 mg, Mem oria roquine 6-23 PO, Daily, l 14:53: 0 [place] 00 Refill(s) pilocarpine 2016-0 Yes 7.5 mg = 1 Memoria 7.5 mg oral 6-23 tab, PO, l tablet 14:53: TID, # 90 Randy n 00 tab, 0 Refill(s) cyclobenzap 2016-0 Yes 10 mg = 1 M emoria rine 10 mg 6-23 tab, PO, l oral tablet 14:53: TID, PRN rmann 00 for spasms, # 30 tab, 0 Refill(s) celecoxib Yes 200 mg = 1 Me moria 200 MG Oral 6-23 cap, PO, l Capsule 14:52: BID, 0 [place] [Celebrex] 00 Refill(s) Methotrexat Yes 0 Memori a e 6-23 Refill(s) l 14:52: [place] 00 Methotrexat Yes INTRATHECA Memoria e Sodium, 6-23 L, ONCE, 0 l Preservativ 14:52: Refill(s) H ermann e Free 25 00 mg/mL injectable solution celecoxib Yes 200 mg = 1 Me moria 200 MG Oral 6-23 cap, PO, l Capsule 14:52: BID, 0 [place] [Celebrex] 00 Refill(s) Methotrexat Yes 0 Memori a e 6-23 Refill(s) l 14:52: [place] Methotrexat Yes INTRATHECA Memoria e Sodium, 6-23 L, ONCE, 0 l Preservativ 14:52: Refill(s) H ermann e Free 25 00 mg/mL injectable solution celecoxib Yes 200 mg = 1 Me moria 200 MG Oral 6-23 cap, PO, l Capsule 14:52: BID, 0 [place] [Celebrex] 00 Refill(s) Methotrexat Yes 0 Memori a e 6-23 Refill(s) l 14:52: [place] 00 Methotrexat Yes INTRATHECA Memoria e Sodium, 6-23 L, ONCE, 0 l Preservativ 14:52: Refill(s) H ermann e Free 25 00 mg/mL injectable solution celecoxib Yes 200 mg = 1 Me moria 200 MG Oral 6-23 cap, PO, l Capsule 14:52: BID, 0 [place] [Celebrex] 00 Refill(s) Methotrexat Yes 0 Memori [...] cap, PO, l Capsule 14:52: BID, 0 [place] [Celebrex] 00 Refill(s) Methotrexat Yes 0 Memori a e 6-23 Refill(s) l 14:52: [place] 00 Methotrexat Yes INTRATHECA Memoria e Sodium, 6-23 L, ONCE, 0 l Preservativ 14:52: Refill(s) H ermann e Free 25 00 mg/mL injectable solution Folic Acid Yes 1 mg = 1 Mem oria 1 MG Oral 6-23 tab, PO, l Tablet 14:51: Daily, 0 [place] 00 Refill(s) Folic Acid Yes 1 mg = 1 Mem oria 1 MG Oral 6-23 tab, PO, l Tablet 14:51: Daily, 0 [place] 00 Refill(s) Folic Acid Yes 1 mg = 1 Mem oria 1 MG Oral 6-23 tab, PO, l Tablet 14:51: Daily, 0 [place] 00 Refill(s) Folic Acid Yes 1 mg = 1 Mem oria 1 MG Oral 6-23 tab, PO, l Tablet 14:51: Daily, 0 [place] 00 Refill(s) Folic Acid Yes 1 mg = 1 Mem oria 1 MG Oral 6-23 tab, PO, l Tablet 14:51: Daily, 0 [place] 00 Refill(s) Folic Acid Yes 1 mg = 1 Mem oria 1 MG Oral 6-23 tab, PO, l Tablet 14:51: Daily, 0 [place] 00 Refill(s) Celebrex Celebrex Yes Luciano 1 capsule Common Travis with food [facility] Cyclobenzap Cyclobenzap Yes Luciano 1 tablet Common rine HCl rine HCl Travis as needed S pirit [facility] Zestoretic Zestoretic Yes Luciano 1 tablet Common Travis [facility] Abilify Abilify Yes Luciano 1 tablet Com mon Travis [facility] Restasis Restasis Yes Luciano 1 drop Com mon Travis into [facility] affected - [facility] eye [facility] Humalog Humalog Yes Luciano as Common Travis directed [facility] Plaquenil Plaquenil Yes Luciano 1 tablet Common Travis with food [facility] or milk [facility] Iron Iron Yes Luciano 1 tablet Common Travis [facility] Leflunomide Leflunomide Yes Luciano 1 tablet Common Travis [facility] Vistaril Vistaril Yes Luciano 1 capsule Common Travis as needed [facility] Bydureon Bydureon Yes Luciano not Commo n Travis defined [facility] ProAir HFA ProAir HFA Yes Luciano 2 puffs as Common Travis needed [facility] Pilocarpine Pilocarpine Yes Luciano 1 tablet Common HCl HCl Travis [facility] Savella Savella Yes Luciano 2 tablets Co mmon Travis [facility] Guaifenesin Guaifenesin Yes Luciano 10 ml as Common -Codeine -Codeine Travis needed Spir [facility] Atorvastati Atorvastati Yes Luciano 1 tablet Common n Calcium n Calcium Travis Spir [facility] Omeprazole Omeprazole Yes Luciano 1 capsule Common Travis [facility] Breo Breo Yes Luciano 1 puff Common Ellipta Ellipta Travis [facility] Trazodone Trazodone Yes Luciano 1 tablet Common HCl HCl Travis at bedtime [facility] Toujeo Toujeo Yes Luciano not Common SoloStar SoloStar Travis defined Spi [facility] Tolterodine Tolterodine Yes Luciano 1 capsule Common Tartrate ER Tartrate ER Travis [facility] Hemocyte Hemocyte Yes Luciano 1 capsule Common Plus Plus Travis [facility] Folic Acid Folic Acid Yes Luciano 1 tablet Common Travis [facility] MetFORMIN MetFORMIN Yes Luciano 1 tablet Common HCl ER HCl ER Travis at night [facility] Metformin Metformin Yes Luciano 1 tablet Common HCl HCl Travis with a Spirit meal in - [facility] the [facility] Saphris Saphris Yes Luciano 1 tablet Com mon Travis under the [facility] tongue and - [facility] allow to [facility] Paxil Paxil Yes Luciano 1 tablet Common Travis in the [facility] Colace Colace Yes Luciano 1 capsule Comm on Travis as needed [facility] Leflunomide Leflunomide No 1{table QD [...] 100-10 100-10 d} 100-10 MG/5ML MG/5ML MG/5ML Jupiter Jupiter No Jupiter metFORMIN metFORMIN No QD metFORMIN HCl 1000 [...] 100-10 100-10 d} 100-10 MG/5ML MG/5ML MG/5ML Jupiter Jupiter No Jupiter metFORMIN metFORMIN No QD metFORMIN HCl 1000 [...] 100-10 100-10 d} 100-10 MG/5ML MG/5ML MG/5ML Jupiter Jupiter No Jupiter metFORMIN metFORMIN No QD metFORMIN HCl 1000 [...] 200-25 200-25 200-25 MCG/INH MCG/INH MCG/INH Toujeo Toumanojo No QD Toujeo GypsyoStar SoloStar SoloStar 300u/ml 300u/ml 300u/ml Hemocyte Hemocyte [...] QD Abilify 20 MG MG t} MG Jupiter Jupiter No Jupiter Plaquenil Plaquenil No 1{table QD Plaquenil 200 [...] QD Abilify 20 MG MG t} MG Jupiter Jupiter No Jupiter Plaquenil Plaquenil No 1{table QD Plaquenil 200 [...] QD Abilify 20 MG MG t} MG Jupiter Jupiter No Jupiter Plaquenil Plaquenil No 1{table QD Plaquenil 200 [...] QD Abilify 20 MG MG t} MG Jupiter Jupiter No Jupiter Plaquenil Plaquenil No 1{table QD Plaquenil 200 [...] 100 No HumaLOG UNIT/ML UNIT/ML 100 UNIT/ML Jupiter Jupiter No Jupiter Breo Breo No 1{puff} QD Breo Ellipta [...] 100 No HumaLOG UNIT/ML UNIT/ML 100 UNIT/ML Jupiter Jupiter No Jupiter Breo Breo No 1{puff} QD Breo Ellipta [...] 100 No HumaLOG UNIT/ML UNIT/ML 100 UNIT/ML Jupiter Jupiter No Jupiter Breo Breo No 1{puff} QD Breo Ellipta [...] 100 No HumaLOG UNIT/ML UNIT/ML 100 UNIT/ML Jupiter Jupiter No Jupiter Breo Breo No 1{puff} QD Breo Ellipta [...] 200 MG t_with_ 200 MG food_or _milk} Jupiter Jupiter No Jupiter Omeprazole Omeprazole No 1{capsu QD Omeprazole 40 [...] Zestoretic 20-12.5 MG 20-12.5 MG 20-12.5 MG Jupiter Jupiter No Jupiter Iron 325 Iron 325 No 1{table QD [...] Zestoretic 20-12.5 MG 20-12.5 MG 20-12.5 MG Jupiter Jupiter No Jupiter Iron 325 Iron 325 No 1{table QD [...] t_under MG _the_to ngue_an d_allow _to_dis solve} Jupiter Jupiter No Jupiter Zoloft 50 Zoloft 50 No 1{table QD [...] Ellipta 200-25 200-25 200-25 MCG/INH MCG/INH MCG/INH Jupiter Jupiter No Jupiter metFORMIN metFORMIN No QD metFORMIN HCl ER [...] 100-10 100-10 d} 100-10 MG/5ML MG/5ML MG/5ML Jupiter Jupiter No Jupiter Folic Acid Folic Acid No 1{table QD [...] 100-10 100-10 d} 100-10 MG/5ML MG/5ML MG/5ML Jupiter Jupiter No Jupiter Folic Acid Folic Acid No 1{table QD [...] Completed [facility] (Triamcin[facility]one[facility] (Triamcinolone) 14:42:00 - [facility] 2019-11-02 Completed [facility] (Triamcinolone) (Triamcinolone) 14:42:00 - [facility] 2019-11-02 Completed [facility] (Triamcinolone) (Triamcinolone) 14:42:00 - [facility] 2019-11-02 Completed [facility] (Triamcinolone) (Triamcinolone) 14:42:00 - [facility] 2019-11-02 Completed [facility] (Triamcinolone) (Triamcinolone) 14:42:00 - [facility] 2019-11-02 Completed [facility] (Triamcinolone) (Triamcinolone) 14:42:00 - [facility] 2019-11-02 Completed [facility] (Triamcinolone) (Triamcinolone) 14:42:00 - [facility] 2019-11-02 Completed [facility] (Tri[facility]cin[facility]) [facility] (Triamcinolone[facility] (Triamcinolone) 14:42:00 - [facility] Vital Signs Vital Name Observation Time Observation Value Comments Source height 2022-02-08 71 [in_i] [facility] - 15:20:00 [facility] weight 2022-02-08 240 [lb_av] [facility] - 15:20:00 [facility] bmi 2022-02-08 33.47 kg/m2 [facility] - 15:20:00 [facility] height 2022-01-16 71 [in_i] [facility] - 10:40:00 [facility] weight 2022-01-16 239.6 [lb_av] [facility] - 10:40:00 [facility] temperature 2022-01-16 97.5 [degF] [facility] - 10:40:00 [facility] bmi 2022-01-16 33.41 kg/m2 [facility] - 10:40:00 [facility] oximetry 2022-01-16 97 % [facility] - 10:40:00 [facility] respiratory rate 2022-01-16 17 /min [facility] - 10:40:00 [facility] blood pressure 2022-01-16 121 mm[Hg] [facility] - systolic 10:40:00 [facility] blood pressure 2022-01-16 68 mm[Hg] [facility] - diastolic 10:40:00 [facility] Systolic blood 2021-10-31 126 mm[Hg] [facility] pressure 19:16:00 Diastolic blood 2021-10-31 84 mm[Hg] [facility] pressure 19:16:00 Body height 2021-10-31 180.3 cm [facility] 19:16:00 Body weight 2021-10-31 112.038 kg [facility] 19:16:00 BMI 2021-10-31 34.45 kg/m2 [facility] 19:16:00 Systolic blood 2021-10-24 118 mm[Hg] [facility] pressure 18:53:00 Diastolic blood 2021-10-24 68 mm[Hg] [facility] pressure 18:53:00 Body temperature 2021-10-24 36.44 Teresa [facility] 18:53:00 Body height 2021-10-24 180.3 cm [facility] 18:53:00 Body weight 2021-10-24 112.401 [facility] 18:53:00 BMI 2021-10-24 34.56 kg/m2 [facility] 18:53:00 height 2021-10-17 71 [in_i] [facility] - 11:20:00 [facility] weight 2021-10-17 230 [lb_av] [facility] - 11:20:00 [facility] temperature 2021-10-17 97.6 [degF] [facility] - 11:20:00 [facility] bmi 2021-10-17 32.07 kg/m2 [facility] - 11:20:00 [facility] oximetry 2021-10-17 97 % [facility] - 11:20:00 [facility] respiratory rate 2021-10-17 16 /min [facility] - 11:20:00 [facility] blood pressure 2021-10-17 132 mm[Hg] [facility] - systolic 11:20:00 [facility] blood pressure 2021-10-17 76 mm[Hg] [facility] - diastolic 11:20:00 [facility] Systolic blood 2021-10-11 135 mm[Hg] [facility] 13:08:00 [facility] Diastolic blood 2021-10-11 81 mm[Hg] [facility]auvin o pressure 13:08:00 [facility] Heart rate 2021-10-11 78 /min [facility] 13:08:00 [facility] Body height 2021-10-11 180.3 cm [facility] 13:08:00 [facility] Body weight 2021-10-11 104.101 kg [facility] 13:08:00 [facility] BMI 2021-10-11 32.01 kg/m2 [facility] 13:08:00 [facility] Oxygen saturation 2021-10-11 97 /min [facility] Arterial blood 13:08:00 [facility] by Pulse oximetry [facility] height 2021-07-18 71.5 [in_i] [facility] - 10:40:00 [facility] weight 2021-07-18 228.9 [lb_av] [facility] - 10:40:00 [facility] temperature 2021-07-18 98.1 [degF] [facility] - 10:40:00 [facility] bmi 2021-07-18 31.48 kg/m2 [facility] - 10:40:00 [facility] oximetry 2021-07-18 95 % [facility] - 10:40:00 [facility] respiratory rate 2021-07-18 17 /min [facility] - 10:40:00 [facility] blood pressure 2021-07-18 135 mm[Hg] [facility] - systolic 10:40:00 [facility] blood pressure 2021-07-18 76 mm[Hg] [facility] - diastolic 10:40:00 [facility] height 2021-04-03 71.5 [in_i] [facility] - 15:00:00 [facility] weight 2021-04-03 234 [lb_av] [facility] - 15:00:00 [facility] temperature 2021-04-03 96.9 [degF] [facility] - 15:00:00 [facility] bmi 2021-04-03 32.18 kg/m2 [facility] - 15:00:00 [facility] oximetry 2021-04-03 98 % [facility] - 15:00:00 [facility] respiratory rate 2021-04-03 17 /min [facility] - 15:00:00 [facility] blood pressure 2021-04-03 138 mm[Hg] [facility] - systolic 15:00:00 [facility] blood pressure 2021-04-03 75 mm[Hg] [facility] - diastolic 15:00:00 [facility] Systolic blood 2021-03-26 152 mm[Hg] [facility] pressure 18:40:00 [facility] Diastolic blood 2021-03-26 58 mm[Hg] [facility] pressure 18:40:00 [facility] Heart rate 2021-03-26 95 /min [facility] 18:40:00 [facility] Body temperature 2021-03-26 37.22 Teresa [facility] 18:40:00 [facility] Respiratory rate 2021-03-26 18 /min [facility] 18:40:00 [facility] Body weight 2021-03-26 106.595 kg [facility] 18:40:00 [facility] BMI 2021-03-26 32.78 kg/m2 [facility] 18:40:00 [facility] Oxygen saturation 2021-03-26 100 /min [facility] in Arterial blood 18:40:00 [facility] Pulse oximetry Donald height 2021-03-05 71.5 [in_i] [facility] - 09:50:00 [facility] weight 2021-03-05 239.4 [lb_av] [facility] - 09:50:00 [facility] temperature 2021-03-05 98.1 [degF] [facility] - 09:50:00 [facility] bmi 2021-03-05 32.92 kg/m2 [facility] - 09:50:00 [facility] oximetry 2021-03-05 98 % [facility] - 09:50:00 [facility] respiratory rate 2021-03-05 18 /min [facility] - 09:50:00 [facility] blood pressure 2021-03-05 136 mm[Hg] [facility] - systolic 09:50:00 [facility] blood pressure 2021-03-05 64 mm[Hg] [facility] - diastolic 09:50:00 [facility] height 2021-03-05 71.5 [in_i] [facility] - 09:50:00 [facility] weight 2021-03-05 239.4 [lb_av] [facility] - 09:50:00 [facility] temperature 2021-03-05 98.1 [degF] [facility] - 09:50:00 [facility] bmi 2021-03-05 32.92 kg/m2 [facility] - 09:50:00 [facility] oximetry 2021-03-05 98 % [facility] - 09:50:00 [facility] blood pressure 2021-03-05 136 mm[Hg] [facility] - systolic 09:50:00 [facility] blood pressure 2021-03-05 64 mm[Hg] Common [facility] - diastolic 09:50:00 [facility] height 2020-12-07 71.5 [in_i] [facility] - :10: [facility] weight 2020-12-07 250.3 [lb_av] [facility] Spirit - :: [facility] temperature 2020-12-07 98.0 [degF] [facility] Spirit - :10: [facility] bmi 2020-12-07 34.42 kg/m2 [facility] - 10:10: [facility] oximetry 2020-12-07 98 % [facility] Spirit - 10:: [facility] respiratory rate 2020-12-07 17 /min [facility] - :: [facility] blood pressure 2020-12-07 135 mm[Hg] [facility] - systolic 10:10: [facility] blood pressure 2020-12-07 70 mm[Hg] [facility] - diastolic 10:10:00 [facility] Systolic blood 2020-12-03 127 mm[Hg] [facility] pressure 19:16:00 [facility] Diastolic blood 2020-12-03 84 mm[Hg] [facility] f pressure 19:16:00 [facility] Heart rate 2020-12-03 85 /min [facility] 19:16:00 [facility] Body temperature 2020-12-03 36.5 Teresa [facility] 19:16:00 [facility] Respiratory rate 2020-12-03 16 /min [facility] 19:16:00 [facility] Body height 2020-12-03 180.3 cm [facility] 19:16:00 [facility] Body weight 2020-12-03 113.399 kg [facility] 19:16:00 [facility] BMI 2020-12-03 34.87 kg/m2 [facility] 19:16:00 [facility] Oxygen saturation 2020-12-03 97 /min [facility] Arterial blood 19:16:00 [facility] by Pulse oximetry Donald height 2020-10-26 71.5 [in_i] [facility] - :10: [facility] weight 2020-10-26 290 [lb_av] [facility] - 10:10: [facility] temperature 2020-10-26 98 [degF] [facility] - 10:10:00 [facility] bmi 2020-10-26 39.88 kg/m2 [facility] - 10:10:00 [facility] blood pressure 2020-10-26 131 mm[Hg] [facility] - systolic 10:10:00 [facility] blood pressure 2020-10-26 70 mm[Hg] [facility] - diastolic 10:10:00 [facility] Systolic blood 2020-06-21 148 mm[Hg] [facility] pressure 20:01:00 [facility] Diastolic blood 2020-06-21 85 mm[Hg] [facility] pressure 20:01:00 [facility] Heart rate 2020-06-21 83 /min [facility] 20:01:00 [facility] Body temperature 2020-06-21 36.94 Teresa [facility] 20:01:00 [facility] Respiratory rate 2020-06-21 18 /min [facility] 20:01:00 [facility] Body height 2020-06-21 180.3 cm [facility] 20:01:00 [facility] Body weight 2020-06-21 131.271 kg [facility] 20:01:00 [facility] BMI 2020-06-21 40.36 kg/m2 [facility] 20:01:00 [facility] Systolic blood 2022-01-24 155 mm[Hg] [facility] pressure 16:10:00 [facility] Diastolic blood 2022-01-24 77 mm[Hg] [facility] pressure 16:10:00 Hospital Heart rate 2022-01-24 85 /min [facility] 16:10:00 [facility] Body temperature 2022-01-24 36.39 Teresa [facility] 16:10:00 [facility] Respiratory rate 2022-01-24 20 /min [facility] 16:10:00 [facility] Oxygen saturation 2022-01-24 100 /min [facility] in Arterial blood 16:10:00 [facility] by Pulse oximetry Body height 2022-01-24 180.3 cm [facility] 14:12:00 [facility] Body weight 2022-01-24 106.2 kg [facility] 14:12:00 [facility] BMI 2022-01-24 32.65 kg/m2 [facility] 14:12:[facility] Systolic blood 2020-06-22 144 mm[Hg] [facility] pressure 15:10:00 Hospital Diastolic blood 2020-06-22 65 mm[Hg] [facility] 15:10:00 Hospital Heart rate 2020-06-22 88 /min [facility] 15:10:00 [facility] Body temperature 2020-06-22 36.22 Teresa [facility] 15:10:00 [facility] Body height 2020-06-22 180.3 cm [facility] Respiratory rate 2020-05-05 16 /min [facility] 20:27:41 Hospital Oxygen saturation 2020-05-05 98 /min [facility] in Arterial blood 20:27:41 Hospital by Pulse oximetry Body weight 2020-05-04 128.187 kg [facility] 22:05:46 [facility] BMI 2020-05-04 39.41 kg/m2 [facility] 22:[facility]46 [facility] BP Systolic 2017-09-03 130 mm[Hg] Location: [facility]; [facility] 11:02:00 Position: Sitting BP Diastolic 2017-09-03 80 mm[Hg] Location: [facility]; [facility] 11:02:00 Position: Sitting Height 2017-09-03 71 [in_us] [facility] 11:02:00 Weight 2017-09-03 298 [lb_av] [facility] 11:02:00 Body Mass Index 2017-09-03 41.56 kg/m2 [facility] Calculated 11:02:00 Temperature 2017-09-03 97.8 [degF] [facility] 11:02:00 BP Systolic 2017-08-27 108 mm[Hg] Location: [facility]; [facility] 14:27:00 Position: Sitting BP Diastolic 2017-08-27 70 mm[Hg] Location: NAIN; [facility] 14:27:00 Position: Sitting Height 2017-08-27 71 [in_us] [facility] 14:27:00 Weight 2017-08-27 298 [lb_av] [facility] 14:27:00 Body Mass Index 2017-08-27 41.56 kg/m2 [facility] Calculated 14:27:00 Temperature 2017-08-27 97.9 [degF] [facility] 14:27:00 BP Systolic 2017-08-21 130 mm[Hg] Location: [facility]; [facility] 10:23:00 Position: Sitting BP Diastolic 2017-08-21 84 mm[Hg] Location: NAIN; [facility] 10:23:00 Position: Sitting Height 2017-08-21 71 [...] BP Systolic 2017-07-24 122 mm[Hg] Location: LUE; [facility] 13:30:00 Position: Sitting BP Diastolic 2017-07-24 [...] BP Systolic 2017-06-19 140 mm[Hg] Location: L[facility]; [facility] 15:26:00 Position: Sitting BP Diastolic 2017-06-19 [...] 09:20:00 Position: Sitting Height 2017-06-09 71 [in_us] [facility] 09:20:00 Weight 2017-06-09 298 [lb_av] [facility] 09:20:00 Body Mass Index 2017-06-09 41.56 kg/m2 [facility] Calculated 09:20:00 Temperature 2017-06-09 98.2 [degF] [facility] 09:20:00 [facility] 17[facility]00 BMI Calculated 2015-08-10 Chrystal Ashton archana 13:14:00 Weight 2015-08-10 Chrystal Padilla n 13:14:00 Temperature Oral 2015-08-03 98.5 F Chrystal salgado (F) 14:50:00 Height 2015-08-03 180.34 cm Chrystal Padilla n 13:51:00 Procedures Procedure Date / Time Performing Clinician Source Performed VITRECTOMY 2022-01-24 14:57:00 [facility] P[facility] GLUCOSE 2022-01-24 14:38:00 [facility] POCT URINALYSIS DIPSTICK 2021-10-31 19:16:00 Shefali Hooper [facility] POCT URINALYSIS DIPSTICK 2021-10-24 18:43:00 Andressa Puckett [facility] POCT HEMOGLOBIN A1C TEST 2021-10-10 18:23:00 Brody Hinds [facility] REFERRAL- REQUEST/RESPONSE 2021-05-28 05:01:00 Doctor Shana , [facility] Name Medical Branch NOTICE OF PRIVACY 2021-03-26 18:27:07 Doctor Shana, [facility] Name Medical Branch CONSENT/REFUSAL FOR 2021-03-26 18:26:47 [facility] TREATMENT [employer] [facility] NOTICE OF PRIVACY 2020-12-18 16:26:34 Doctor Shana, [facility] CONSENT/REFUSAL FOR 2020-12-18 16:25:51 [facility] TREATMENT [facility] [employer] [facility] ASSIGNMENT OF BENEFITS 2020-12-18 16:25:20 Doctor Shana [facility] Name Medical Branch REFERRAL- REQUEST/RESPONSE 2020-12-08 05:01:00 [facility] Name Medical Branch EKG-12 LEAD 2020-12-03 20:44:28 Greg Peacock [facility] NOTICE OF PRIVACY 2020-12-03 19:10:09 Doctor Shana, [facility] [employer] [facility] Donald MRI BRAIN W WO CONTRAST 2020-05-05 18:29[facility] 2020-05-05 17:10:00 Rafaela [facility] TTE COMPLETE, WO CONTRAST, 2020-05-05 15:22:00 [facility] W AGITATED SALINE ([id number]) POC GLUCOSE 2020-05-05 12:19:00 Chloe Minor spital HC COMPLETE BLD COUNT 2020-05-05 10:15:00 [facility] W/AUTO DIFF BASIC METABOLIC PANEL 2020-05-05 10:15:00 [facility] VITAMIN B12 LEVEL 2020-05-05 10:15:00 [facility] VITAMIN B1 LEVEL, WHOLE 2020-05-05 10:15:00 [facility] BLOOD THYROID STIMULATING 2020-05-05 10:15:00 [facility] HORMONE LIPID PANEL 2020-05-05 10:15:00 Vidal Ortiz [facility] spital HEMOGLOBIN A1C 2020-05-05 10:15:00 [facility] SED[facility]ENT[facility] RATE 2020-05-05 10:15:00 [facility] RAPID HIV 1 & 2 2020-05-05 10:15:00 [facility] SYPHILIS TREPONEMA SCREEN 2020-05-05 10:15:00 Vidal Ortiz [facility] WITH RPR CONFIRMATION (REVERSE ALGORITHM) ESTIMATED GFR 2020-05-05 10:15:00 Chloe Minor spital C-REACTIVE PROTEIN 2020-05-05 10:15:00 [facility] POC GLUCOSE 2020-05-05 01:38:00 Chloe Minor spital POC GLUCOSE 2020-05-04 22:14:00 Chloe Minor spital URINE CULTURE 2020-05-04 20:33:[address] [facility] URINALYSIS SCREEN AND 2020-05-04 20:33:00 Tom Means [facility] MICROSCOPY, WITH REFLEX TO CULTURE COVID-19 QUALITATIVE 2020-05-04 20:27:00 Tom Means [facility] RT-PCR ECG 12-LEAD 2020-05-04 20:21:36 Katielex[address] Castillo spital [address] ANGIOGRAM NECK W WO 2020-05-04 19:46:05 Tom Means [facility] CONTRAST CT ANGIOGRAM HEAD W WO 2020-05-04 19:45:38 Tom Means [facility] CONTRAST CT STROKE BRAIN WO 2020-05-04 19:36:[address] [facility] CONTRAST HC COMPLETE BLD COUNT 2020-05-04 19:19:00 Tom Means [facility] W/AUTO DIFF PARTIAL THROMBOPLASTIN 2020-05-04 19:19:00 Tom Means [facility] TIME (PTT) PROTHROMBIN TIME WITH INR 2020-05-04 19:19:[address] [facility] COMPREHENSIVE METABOLIC 2020-05-04 19:19:00 [facility] PANEL ESTIMATED GFR 2020-05-04 19:19:00 [facility] [[facility]] CULTURE, URINE, 2017-08-27 00:00:00 [facility] [[facility]] CULTURE, URINE, 2017-08-21 00:00:00 [facility] [[facility]] CULTURE, URINE, 2017-06-09 00:00:00 [facility] sicians ROUTINE CHILO - Endometrial laser [facility] ablation 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 History of Ankle Surgery [facility] History of Hysteroscopy [facility] With Endometrial Ablation Plan of Care Planned Activity Planned Date Details Comments Source Future Scheduled 2022-02-01 Pneumococcal Vaccine: [facility] Test 18:59:30 Pediatrics (0 to 5 Years) and At-Risk Patients (6 to 64 Years) (1 - PCV) [code = Pneumococcal Vaccine: Pediatrics (0 to 5 Years) and At-Risk Patients (6 to 64 Years) (1 - PCV)] Future Scheduled 2022-02-01 Hepatitis C screening [facility] Test 18:59:30 (procedure) [code = 716112147] Future Scheduled 2022-02-01 SHINGLES VACCINES (1 Met [facility] Test 18:59:30 of 2) [code = SHINGLES VACCINES (1 of 2)] Future Scheduled 2022-02-[address] [facility] Test 18:59:30 malignant neoplasm of cervix (procedure) [code = 825731550] Future Scheduled 2022-02-[address] [facility] Test 18:59:30 SCREENING [code = BREAST CANCER SCREENING] Future Scheduled 2022-02-01 COLONOSCOPY SCREENING [facility] Test 18:59:30 [code = COLONOSCOPY SCREENING] Future Scheduled 2022-02-01 HEPATITIS B VACCINES Met [facility] Test 18:59:30 (1 of 3 - Risk 3-dose series) [code = HEPATITIS B VACCINES (1 of 3 - Risk 3-dose series)] Future Scheduled 2022-02-01 COVID-19 VACCINE (2 - [facility] Test 18:59:30 Booster for Joel series) [code = COVID-19 VACCINE (2 - Booster for Joel series)] Future Scheduled 2022-02-01 INFLUENZA VACCINE [facility] Test 18:59:30 [code = INFLUENZA VACCINE] Future Scheduled 2022-02-01 Pneumococcal Vaccine: [facility] Test 18:59:30 Pediatrics (0 to 5 Years) and At-Risk Patients (6 to 64 Years) (1 - PCV) [code = Pneumococcal Vaccine: Pediatrics (0 to 5 Years) and At-Risk Patients (6 to 64 Years) (1 - PCV)] Future Scheduled 2022-02-01 Hepatitis C screening [facility] Test 18:59:30 (procedure) [code = 181827347] Future Scheduled 2022-02-01 SHINGLES VACCINES (1 Met [facility] Test 18:59:30 of 2) [code = SHINGLES VACCINES (1 of 2)] Future Scheduled 2022-02-[address] [facility] Test 18:59:30 malignant neoplasm of cervix (procedure) [code = 441268069] Future Scheduled 2022-02-[address] [facility] Test 18:59:30 SCREENING [code = BREAST CANCER SCREENING] Future Scheduled 2022-02-01 COLONOSCOPY SCREENING [facility] Test 18:59:30 [code = COLONOSCOPY SCREENING] Future Scheduled 2022-02-01 HEPATITIS B VACCINES Met [facility] Test 18:59:30 (1 of 3 - Risk 3-dose series) [code = HEPATITIS B VACCINES (1 of 3 - Risk 3-dose series)] Future Scheduled 2022-02-01 COVID-19 VACCINE (2 - [facility] Test 18:59:30 Booster for Joel series) [code = COVID-19 VACCINE (2 - Booster for Joel series)] Future Scheduled 2022-02-01 INFLUENZA VACCINE [facility] Test 18:59:30 [code = INFLUENZA VACCINE] Future Scheduled 2022-02-01 Pneumococcal Vaccine: [facility] Test 18:59:30 Pediatrics (0 to 5 Years) and At-Risk Patients (6 to 64 Years) (1 - PCV) [code = Pneumococcal Vaccine: Pediatrics (0 to 5 Years) and At-Risk Patients (6 to 64 Years) (1 - PCV)] Future Scheduled 2022-02-01 Hepatitis C screening [facility] Test 18:59:30 (procedure) [code = 316550538] Future Scheduled 2022-02-01 SHINGLES VACCINES (1 Met [facility] Test 18:59:30 of 2) [code = SHINGLES VACCINES (1 of 2)] Future Scheduled 2022-02-[address] [facility] Test 18:59:30 malignant neoplasm of cervix (procedure) [code = 055269347] Future Scheduled 2022-02-[address] [facility] Test 18:59:30 SCREENING [code = BREAST CANCER SCREENING] Future Scheduled 2022-02-01 COLONOSCOPY SCREENING [facility] Test 18:59:30 [code = COLONOSCOPY SCREENING] Future Scheduled 2022-02-01 HEPATITIS B VACCINES Met [facility] Test 18:59:30 (1 of 3 - Risk 3-dose series) [code = HEPATITIS B VACCINES (1 of 3 - Risk 3-dose series)] Future Scheduled 2022-02-01 COVID-19 VACCINE (2 - [facility] Test 18:59:30 Booster for Joel series) [code = COVID-19 VACCINE (2 - Booster for Joel series)] Future Scheduled 2022-02-01 INFLUENZA VACCINE [facility] Test 18:59:30 [code = INFLUENZA VACCINE] Future Scheduled 2021-10-19 COVID-19 VACCINE (#1) [facility] Test 10:53:01 [code = COVID-19 VACCINE (#1)] Future Scheduled 2021-10-19 Pneumococcal Vaccine: [facility] Test 10:53:01 Pediatrics (0 to 5 Years) and At-Risk Patients (6 to 64 Years) (1 - PCV) [code = Pneumococcal Vaccine: Pediatrics (0 to 5 Years) and At-Risk Patients (6 to 64 Years) (1 - PCV)] Future Scheduled 2021-10-19 Hepatitis C screening [facility] Test 10:53:01 (procedure) [code = 843028027] Future Scheduled 2021-10-19 SHINGLES VACCINES (1 [facility] Test 10:53:01 of 2) [code = SHINGLES VACCINES (1 of 2)] Future Scheduled 2021-10-[address] [facility] Test 10:53:01 malignant neoplasm of cervix (procedure) [code = 469570255] Future Scheduled 2021-10-19 [facility] Test 10:53:01 SCREENING [code = BREAST CANCER SCREENING] Future Scheduled 2021-10-19 COLONOSCOPY SCREENING [facility] Test 10:53:01 [code = COLONOSCOPY SCREENING] Future Scheduled 2021-10-19 HEPATITIS B VACCINES [facility] Test 10:53:01 (1 of 3 - Risk 3-dose series) [code = HEPATITIS B VACCINES (1 of 3 - Risk 3-dose series)] Future Scheduled 2021-10-19 INFLUENZA VACCINE [facility] Test 10:53:01 [code = INFLUENZA VACCINE] Future Scheduled DIABETES: RETINAL EYE [facility] Test EXAM [code = DIABETES: RETINAL EYE EXAM] Future Scheduled DIABETIC FOOT EXAM [facility] Test [code = DIABETIC FOOT EXAM] Future Sched[facility] [code = URINE MICROALBUMIN] Future Scheduled COVID-19 VACCINE (1) [facility] Test [code = COVID-19 VACCINE (1)] Future Scheduled Hepatitis C screening [facility] Test (procedure) [code = 993536416] Future Scheduled [facility] malignant neoplasm of cervix (procedure) [code = 911224402] Future Scheduled [facility] SCREENING [code = BREAST CANCER [...] Type Clinicians Facility Department ID 2022-01-14 Outpatient Travis, STLMLC STLC [id number] Common 08:35:01 [facility] 2021-11-27 Outpatient [facility] [id number] [place] 10:51:[address] [place] [address] 2021-10-16 Outpatient Travis, STLMLC STLC [id number] Common 14:20:00 Luciano [facility] 2021-08-20 Outpatient Travis, STLMLC STLC [id number] Common 08:10:01 [facility] 2021-08-16 Outpatient Travis, STLMLC STLC [id number] Common 15:42:00 [facility] 2021-07-10 Outpatient Travis, STLMLC STLC Common 08:19:00 Luciano [facility] 2021-05-08 Outpatient Travis, STLC STLC [id number] Common 15:07:00 [facility] 2021-03-29 Outpatient [facility], [facility] [id number] [place] 16:38:20 [facility] 2021-03-14 Outpatient DEREA, [facility] [id number] [place] 10:48:45 [facility] 2021-03-14 Outpatient Travis, STLMLC STLC [id number] Common 09:24:01 Luciano [facility] 2021-03-07 Outpatient Travis, STLC STLC [id number] Common 14:38:44 Luciano [facility] 2021-03-07 Outpatient Travis, STLC STLC [id number] Common 14:34:38 Luciano [facility] 2021-03-07 Outpatient Travis, STLMLC STLMLC [id number] Common 14:19:07 Luciano [facility] 2021-03-07 Outpatient Travis, STLMLC STLMLC Common 14:06:31 Luciano [facility] 2021-03-07 Outpatient Travis, STLMLC STLMLC [id number] Common 14:06:01 Luciano [facility] 2021-03-07 Outpatient Travis, STLMLC STLMLC Common 14:05:29 Luciano [facility] 2021-03-07 Outpatient Travis, STLMLC STLMLC Common 13:56:00 Luciano [facility] 2021-03-07 Outpatient Travis, STLMLC STLMLC Common 13:49:17 Luciano 01615 [facility] 2021-03-07 Outpatient Travis, STLMLC STLMLC Common 12:29:42 Luciano [facility] 2021-03-07 Outpatient Travis, STLMLC STLMLC Common 12:27:48 Luciano [facility] 2021-03-07 Outpatient Travis, STLMLC STLMLC Common 12:27:16 Luciano [facility] 2021-03-07 Outpatient Travis, STLMLC STLMLC Common 12:25:19 Luciano [facility] 2021-03-07 Outpatient Travis, STLMLC STLMLC Common 12:24:57 Luciano [facility] 2021-03-07 Outpatient Travis, STLMLC STLMLC Common 12:21:52 Lucaino [facility] 2021-03-07 Outpatient Travis, STLMLC STLMLC Common 12:21:15 Luciano [id number] [facility] 2021-03-07 Outpatient Travis, STLMLC STLMLC Common 12:20:49 Lucaino 19978 [facility] 2021-03-07 Outpatient Travis, STLMLC STLMLC Common 12:19:53 Luciano [id number] [facility] 2021-03-07 Outpatient Travis, STLMLC STLMLC [id number] Common 11:37:00 Luciano [id number] [facility] 2021-03-07 Outpatient Travis, STLMLC STLMLC Common 11:36:58 Luciano 03635 [facility] 2021-03-07 Outpatient Travis, STLMLC STLMLC Common 11:33:09 Luciano [id number] [facility] 2021-03-07 Outpatient Travis, STLMLC STLMLC Common 11:31:11 Luciano [id number] [facility] 2021-03-07 Outpatient Travis, STLMLC STLMLC Common 11:06:28 Luciano 74066 [facility] 2021-01-10 Outpatient MICHAEL [facility] [id number] [place] 10:36:54 [employer] 2021-01-10 Outpatient [place] [place] [id number] [place] 09:52:14 [employer] 2020-12-12 Emergency [facility] [id number] Univers [facility] [place] [place] [id number] [place] 15:05:59 [facility] 2020-11-24 Outpatient [place]HAELTGH [place] [id number] [place] 14:12:16 [facility] 2020-11-24 Outpatient [place]HAELTGH [place] [id number] [place] 13:57:46 [facility] 2020-11-13 Outpatient [place]HAELTGH [place] [id number] [place] 12:16:17 [facility] 2022-04-24 2022-04-24 Outpatient LAVERN [facility] [id number] [place] 11:00:00 11:00:00 [facility] 2022-04-01 2022-04-01 Outpatient [facility] [id number] Lyle 15:48:00 15:48:00 0220 Fabricio Marie 2022-03-13 2022-03-13 (TEL) STLMLC STLMLC [id number] Co mmon 00:00:00 00:00:00 [facility] 2022-02-18 2022-02-18 (TEL) STLMLC STLMLC [id number] Co mmon 00:00:00 00:00:00 [facility] 2022-02-08 2022-02-08 OFFICE STLMLC STLMLC [id number] Co mmon 00:00:00 00:00:00 VISIT EST Spir it PT LEVEL [address] [place] [address] 2022-02-08 2022-02-08 (TEL) STLMLC STLMLC [id number] Co mmon 00:00:00 00:00:00 [facility] 2022-01-24 2022-01-24 [facility] Fish, 1.2.840.1 [id number] Methodi 06:31:00 23:59:00 Encounter Tuyet H. 29349.1.[address] 3.430.2.7 Hospit a .3.727560 l .8 2022-01-24 2022-01-24 Hospital Fish, 1.2.840.1 [id number] Methodi 06:31:00 23:59:00 Encounter Tuyet H. 51323.1.[address] 3.430.2.7 Hospit a .3.882357 l .8 2022-01-24 2022-01-24 Surgery Fish, 1.2.840.1 [id number] Methodi 09:50:00 11:00:00 Tuyet H. 09556.1.1 654 s t 3.430.2.7 Hospit a .3.969476 l .8 2022-01-24 2022-01-24 Surgery Fish, 1.2.840.1 [id number] Methodi 09:50:00 11:00:00 Tuyet Robin 11184.1.1 654 s t 3.430.2.7 Hospit a .3.768668 l .8 2022-01-24 2022-01-24 Anesthesia Ballivian, 1.2.840.1 [id number] Methodi 08:57:00 10:07:00 Event Aba 83310.1.[address] Faustino 3.430.2.7 Hosp ruiz .3.292704 l .8 2022-01-24 2022-01-24 Anesthesia Ballivian, 1.2.840.1 [id number] Methodi 08:57:00 10:07:00 Event Aba 34677.1.[address] Faustino 3.430.2.7 Hosp ruiz .3.561342 l .8 2022-01-24 2022-01-24 Travel 1.2.840.1 [id number] [id number] Methodi 00:00:00 00:00:[address] 3.430.2.7 0.2.7.3.698 Ho spita .3.372900 084.8 l .8 2022-01-24 2022-01-24 Travel 1.2.840.1 1.2.339.984 [id number] Methodi 00:00:00 00:00:[address] 3.430.2.7 0.2.7.3.698 Ho spita .3.264594 084.8 l .8 2022-01-16 2022-01-16 OFFICE STLMLC STLMLC [id number] Co mmon 00:00:00 00:00:00 VISIT Spirit ESTAB PT - CHI LEVEL 4 [facility] 2022-01-01 2022-01-01 (TEL) STLMLC STLMLC [id number] Co mmon 00:00:00 00:00:00 [facility] 2021-12-21 2021-12-21 (TEL) STLC STLC [id number] Co mmon 00:00:00 00:00:00 [facility] 2021-12-05 2021-12-05 Outpatient LAVERN [facility] [id number] [place] 14:50:00 14:50:00 [facility] 2021-11-14 2021-11-14 Telephone Chavez PRCAMILA [id number] Univers 00:00:00 00:00:00 [facility] [employer] [id number] it y of [place] 4.2.7.2.686 Lionel as DAMIAN?BLEA [phone] [address] OFFICE BUILDING 2021-10-31 2021-10-31 Office Michael [facility] [id number] [id number] [place] 13:30:00 14:24:45 Visit Shefali SUGAR 350.1.13.58 Mikel alth [facility] 9.2.7.2.[address] [phone] AND 5 WOMENS 2021-10-24 2021-10-24 Procedure Lavern [facility] 1.2.840.114 [id number] [place] 13:40:00 14:27:30 Visit Andressa SUGAR 350.1.13.58 Mikel alth [facility] 9.2.7.2.686 [address] [phone] AND 5 WOMENS 2021-10-17 2021-10-17 OFFICE STLC STLC [id number] Co mmon 00:00:00 00:00:00 VISIT Spirit ESTAB PT - CHI LEVEL 4 [facility] 2021-10-11 2021-10-11 (TEL) STLC STLC [id number] Co mmon 00:00:00 00:00:00 [facility] 2021-10-10 2021-10-10 Outpatient R CHAVEZ [facility] [id number] Univers 13:30:00 14:23:09 [facility] 2021-10-10 2021-10-10 Office Chavez [facility] 1.2.840.114 [id number] Univers 13:30:00 14:23:09 Visit [facility] [id number] it [facility] 4.2.7.2.686 Lionel as DAMIAN?BLEA [phone] [address] MEDICAL OFFICE BUILDING 2021-10-09 2021-10-09 (TEL) STLMLC STLMLC [id number] Co mmon 00:00:00 00:00:00 [facility] 2021 2021 (TEL) STLMLC STLMLC [id number] Co mmon 00:00:00 00:00:00 [facility] 2021-08-14 2021-08-14 (TEL) STLMLC STLMLC [id number] Co mmon 00:00:00 00:00:00 [facility] 2021-08-07 2021-08-07 [facility] [id number] Univers 15:30:00 15:30:00 [facility] 2021-07-23 2021-07-23 [facility] [id number] Univers 00:00:00 00:00:00 [facility] [id number] it y of [place] 4.2.7.2.686 Lionel as DAMAIN?BLEA [phone] [address] MEDICAL OFFICE [facility] 2021-07-18 2021-07-18 OFFICE STLMLC STLMLC [id number] Co mmon 00:00:00 00:00:00 VISIT [facility] LEVEL 4 [facility] 2021-05-29 2021-05-29 [facility] [id number] Univers 10:30:00 10:30:00 [facility] 2021-05-28 2021-05-28 Orders Doctor AURELIO 1.2.840.114 [id number] Univers 00:00:00 00:00:00 Only Unassigned, BETY [id number] ity of [employer] [facility] 4.2.7.2.686 Lionel as [phone] [address] 2021-05-25 2021-05-25 (TEL) STLMLC STLMLC [id number] Co mmon 00:00:00 00:00:00 [facility] 2021-04-16 2021-04-[address] Spence [facility] 1.2.840.1 [id number] [place] 00:00:00 00:00:00 Ct Spence SUGAR [id number] [facility] 9.2.7.2.686 [address] 5 [id number] AND 2 WOMENS 2021-04-03 2021-04-03 Outpatient [place] HINDS [facility] [id number] Univers 10:00:00 10:00:00 BRODY pho[facility] 2021-04-03 2021-04-[address] [facility] [id number] Co mmon 00:00:00 00:00:00 VISIT Williams [facility] PT - CHI LEVEL 4 [facility] 2021-03-26 2021-03-26 Emergency X [facility] [facility] [id number] Univers 12:42:00 13:51:00 RASHMI pierce [facility] 2021-03-26 2021-03-[address] [facility] 1.2.827.133 [id number] Univers 12:42:00 13:51:00 Rashmi PERRIN 350.1.13.[address] [facility] 4.2.7.2.686 [facility] [phone] [facility] 084 Branch 2021-03-26 2021-03-26 (TEL) [facility] [id number] Co mmon 00:00:00 00:00:00 [facility] 2021-03-26 2021-03-26 Orders Doctor AURELIO 1.2.840.114 [id number] Univers 00:00:00 00:00:00 Only Unassigned, BETY 350.1.13.10 ity [facility] 4.2.7.2.686 [facility] [phone] [facility] 009 Branch 2021-03-14 2021-03-[address] Spence [facility] 1.2.840.1 14 [id number] [place] 00:00:00 00:00:00 Ct Spence 350.1.13.58 Health [place] 9.2.7.2.686 PLAZA 9 [phone] AND 2 WOMENS 2021-03-12 2021-03-[address] Spence [facility] 1.2.840.1 14 [id number] [place] 00:00:00 00:00:00 Ct Spence SU[place]AR 350.1.13.58 Health [place] 9.2.7.2.686 PLAZA 4 [phone] AND 2 WOMENS 2021-03-09 2021-03-[address] Spence [facility] 1.2.840.1 14 [id number] [place] 00:00:00 00:00:00 Ct Spence SUGAR 350.1.13.58 Health [place] [facility] 9.2.7.2.686 PLAZA 2 [phone] AND 2 WOMENS 2021-03-07 2021-03-07 Outpatient R CHAVEZ [facility] [id number] Univers 14:30:00 14:30:00 [facility] 2021-03-06 2021-03-06 [facility] 1.2.880.183 [id number] Univers 00:00:00 00:00:00 [facility] 350.1.13.10 it y of [place] 4.2.7.2.686 Lionel as DAMIAN?BLEA [phone] [address] MEDICAL OFFICE BUILDING 2021-03-05 2021-03-05 OFF[address] [facility] [id number] Co mmon 00:00:00 00:00:00 VISIT Spirit ESTAB PT - CHI LEVEL 4 [facility] 2021-03-05 2021-03-05 SUB ANNUAL [facility] [id number] Common 00:00:00 00:00:00 MCR Spirit WELLNESS - CHI VISIT [facility] 2021-03-01 2021-03-01 (TEL) [facility] [id number] Co mmon 00:00:00 00:00:00 [facility] 2021-02-28 2021-02-28 (TEL) [facility] [id number] Co mmon 00:00:00 00:00:00 [facility] 2021-02-27 2021-02-27 (TEL) STLMLC STLMLC [id number] Co mmon 00:00:00 00:00:00 [facility] 2021-02-26 2021-02-26 (TEL) STLMLC STLMLC [id number] Co mmon 00:00:00 00:00:00 [facility] 2021-01-03 2021-01-03 (TEL) STLMLC STLMLC [id number] Co mmon 00:00:00 00:00:00 [facility] 2020-12-27 2020-12-27 (TEL) STLMLC STLMLC [id number] Co mmon 00:00:00 00:00:00 [facility] 2020-12-18 2020-12-18 Hospital Radiology [facility] 1.2.840.114 [id number] Univers 10:28:59 23:59:00 Encounter MARYCHUY 350.1.13.[address] [facility] 4.2.7.2.686 [facility] [phone] [facility] 804 Branch 2020-12-18 2020-12-18 Outpatient R RADIOLOGY [facility] [id number] Univers 00:00:00 23:59:00 ity of [facility] 2020-12-18 2020-12-18 Orders Doctor AURELIO 1.2.840.114 [id number] Univers 00:00:00 00:00:00 Only Unassigned, BETY 350.1.13.10 ity of [employer] [facility] 4.2.7.2.686 Lionel as [phone] [facility] 009 Branch 2020-12-08 2020-12-08 Orders Doctor AURELIO 1.2.840.114 [id number] Univers 00:00:00 00:00:00 Only Unassigned, BETY 350.1.13.10 ity of [employer] [facility] 4.2.7.2.686 Lionel as [phone] [facility] 009 Branch 2020-12-07 2020-12-07 OFFICE STLMLC STLMLC [id number] Co mmon 00:00:00 00:00:00 VISIT [place] [employer] CHI LEVEL 4 [facility] 2020-12-07 2020-12-07 (TEL) STLMLC STLMLC [id number] Co mmon 00:00:00 00:00:00 [facility] 2020-12-06 2020-12-06 (TEL) STLMLC STLMLC [id number] Co mmon 00:00:00 00:00:00 [facility] 2020-12-05 2020-12-05 (TEL) STLMLC STLMLC [id number] Co mmon 00:00:00 00:00:00 [facility] 2020-12-04 2020-12-04 (TEL) STLMLC STLMLC [id number] Co mmon 00:00:00 00:00:00 [facility] 2020-12-04 2020-12-04 (TEL) STLMLC STLMLC [id number] Co mmon 00:00:00 00:00:00 [facility] 2020-12-03 2020-12-03 [facility] 1.2.510.586 [id number] [facility] 14:18:00 16:20:00 Greg Perrin 350.1.13.10 ity of [place] 4.2.7.2.686 [facility] [phone] [facility] 084 Branch 2020-12-03 2020-12-03 Orders Doctor CAREY 1.2.840.114 [id number] Univers 00:00:00 00:00:00 Only Unassigned, BETY 350.1.13.10 [facility]y [facility] 4.2.7.2.686 [facility] [phone] [facility] 009 Branch 2020-11-27 2020-11-27 Orders RHIANNON Hooper [facility] 1.2.936.331 [id number] PR 00:00:00 00:00:00 Only Shefali SUGAR 350.1.13.58 He [facility] 9.2.7.2.686 PLAZA 1 [phone] AND 5 WOMENS 2020-11-27 2020-11-[address] Spence [facility] 1.2.840.1 14 [id number] PR 00:00:00 00:00:00 Ct Spence 350.1.13.58 [facility] 9.2.7.2.686 PLAZA 5 [phone] AND 2 WOMENS 2020-11-24 2020-11-24 Office Michael [facility] 1.2.916.125 [id number] PR 14:14:20 15:06:05 Visit Shefali SMITH 350.1.13.58 [facility] 9.2.7.2.686 PLAZA 3 [phone] AND 5 WOMENS 2020-11-10 2020-11-10 (TEL) STLMLC STLMLC [id number] Co mmon 00:00:00 00:00:00 [facility] 2020-10-26 2020-10-26 OFFICE STLMLC STLMLC [id number] Co mmon 00:00:00 00:00:00 VISIT [facility] LEVEL 4 [facility] 2020-10-26 2020-10-26 (TEL) STLMLC STLMLC [id number] Co mmon 00:00:00 00:00:00 [facility] 2020-10-12 2020-10-12 Outpatient STLMLC STLMLC [id number] Common 00:00:00 00:00:00 [facility] 2020-09-28 2020-09-28 Documentat Nida Wheeler 1.2.840.1 [id number] Methodi 00:00:00 00:00:[address] 3.430.2.7 Hospit a .3.760307 l .8 2020-08-16 2020-08-16 Yanet Carney [facility] 1.2.041.538 [id number] [facility] 00:00:00 00:00:00 Adriana Perrin 350.1.13.10 i ty of [place] [phone] Ia dical [address] 2020-07-19 2020-07-19 Outpatient R ANGELIKA [facility] [id number] Univers 09:00:00 09:00:00 ADRIANA yanciphoenix [facility] 2020-06-22 2020-06-22 Office Nida Wheeler 1.2.840.1 [id number] Methodi 09:54:22 10:40:[address] 3.430.2.7 Hospit a .3.817544 l .8 2020-06-22 2020-06-22 Travel 1.2.840.1 1.2.890.744 [id number] Methodi 00:00:00 00:00:[address] 3.430.2.7 0.2.7.3.698 Ho spita .3.710989 084.8 l .8 2020-06-21 2020-06-21 Office Angelika Adriana [facility] 1.2.840.11 4 [id number] [facility] 14:30:27 16:08:05 Visit ConchitaansleyJeanaGoldie Antony Perrin 350.1.13.10 ity [facility] [place] [phone] [facility] [address] 2020-06-21 2020-06-21 Outpatient [place] HUBER [facility] [id number] Univers 15:00:00 15:00:00 GOLDIE yanciphoenix [facility] 2020-06-21 2020-06-21 Telephone [facility] 1.2.840.114 [id number] Univers 00:00:00 00:00:00 Adriana Perrin 350.1.13.10 i ty of [place] [phone] Ia dic[address] 2020-06-01 2020-06-01 Outpatient STLMLC STLMLC [id number] Common 00:00:00 00:00:00 [facility] 2020-06-01 2020-06-01 Outpatient STLMLC STLMLC [id number] Common 00:00:00 00:00:00 [facility] 2020-05-30 2020-05-30 Travel 1.2.840.1 1.2.652.420 [id number] Methodi 00:00:00 00:00:[address] 3.430.2.7 0.2.7.3.698 Ho spita .3.903554 084.8 l .8 2020-05-26 2020-05-26 Outpatient STLMLC STLMLC [id number] Common 00:00:00 00:00:00 [facility] 2020-05-17 2020-05-17 Outpatient STLMLC STLMLC [id number] Common 00:00:00 00:00:00 [facility] 2020-05-04 2020-05-05 Emergency Kingsley Corado 1.2.840.1 [id number] Methodi 13:01:00 16:43:00 Chloe Minor [address]003.1.[address] 3.430.2.7 Hospit a .3.796433 l .8 2020-05-04 2020-05-04 Travel 1.2.840.1 1.2.783.387 [id number] Methodi 00:00:00 00:00:[address] 3.430.2.7 0.2.7.3.698 Ho spita .3.634353 084.8 l .8 2020-04-14 2020-04-14 Outpatient STLMLC STLMLC [id number] Common 00:00:00 00:00:00 [facility] 2020-04-10 2020-04-10 Outpatient STLMLC STLMLC [id number] Common 00:00:00 00:00:00 [facility] 2020-03-31 2020-03-31 Outpatient STLMLC STLMLC [id number] Common 00:00:00 00:00:00 [facility] 2020-03-23 2020-03-23 Outpatient STLMLC STLMLC [id number] Common 00:00:00 00:00:00 [facility] 2020-03-23 2020-03-23 Outpatient STLMLC STLMLC [id number] Common 00:00:00 00:00:00 [facility] 2020-03-14 2020-03-14 Outpatient STLMLC STLMLC [id number] Common 00:00:00 00:00:00 [facility] 2020-03-07 2020-03-07 Outpatient STLMLC STLMLC [id number] Common 00:00:00 00:00:00 [facility] 2020-02-28 2020-02-28 Outpatient STLMLC STLMLC [id number] Common 00:00:00 00:00:00 [facility] 2020-02-24 2020-02-24 Outpatient STLMLC STLMLC [id number] Common 00:00:00 00:00:00 [facility] 2020-02-23 2020-02-23 Outpatient STLMLC STLMLC [id number] Common 00:00:00 00:00:00 [facility] 2020-02-23 2020-02-23 Outpatient STLMLC STLMLC [id number] Common 00:00:00 00:00:00 [facility] 2019-11-24 2019-11-[address] [facility] [id number] Memoria 14:28:00 04:59:00 Services r Outpatient 03 l Imaging [facility] 2019-11-24 2019-11-[address] [facility] [id number] Memoria 14:28:00 04:59:00 Services r Outpatient 03 l Imaging [facility] 2019-11-24 2019-11-24 Outpatient Etelvina, MHOIP OIP [id number] 09:28:00 23:59:00 Renaneal Clements 2019-11-11 2019-11-11 Outpatient STLMLC STLMLC [id number] Common 00:00:00 00:00:00 [facility] 2019-11-02 2019-11-02 Outpatient STLMLC STLMLC [id number] Common 00:00:00 00:00:00 [facility] 2019-11-02 2019-11-02 Outpatient STLMLC STLMLC [id number] Common 00:00:00 00:00:00 [facility] 2019-10-27 2019-10-27 [facility] [id number] Common 14:10:00 14:10:[address] Sp[address] [facility] 2019-10-27 2019-10-27 Outpatient [facility] [id number] Common 10:59:00 10:59:[address] Sp[address] [facility] 2019-10-12 2019-10-12 Outpatient [facility] [id number] Common 08:20:00 08:20:[address] Sp[address] [facility] 2019-09-22 2019-09-22 Outpatient [facility] [id number] Common 08:30:00 08:30:[address] Sp[address] it [address] [facility] 2019-08-10 2019-08-10 Outpatient [facility] [id number] Common 13:30:00 13:30:[address] Sp[address] [facility] 2019-04-02 2019-04-02 Outpatient [facility] [id number] Common 15:07:00 15:07:[address] Sp[address] it [address] [facility] 2019-03-16 2019-03-16 Outpatient [facility] [id number] Common 17:04:00 17:04:[address] Sp[address] it [address] [facility] 2018-12-03 2018-12-03 Outpatient [facility] [id number] Common 16:41:00 16:41:[address] Sp[address] [facility] 2018-11-18 2018-11-18 Outpatient [facility] [id number] Common 08:00:00 08:00:[address] Sp[address] it [address] [facility] 2018-07-22 2018-07-22 Outpatient [facility] [id number] Common 08:30:00 08:30:[address] Sp[address] [facility] 2018-06-10 2018-06-10 Outpatient [facility] [id number] Common 09:53:00 09:53:[address] Sp[address] it [address] [facility] 2018-03-23 2018-03-23 Outpatient [facility] [id number] Common 14:00:00 14:00:[address] Sp[address] [facility] 2018-03-19 2018-03-19 Outpatient [facility] [id number] Common 10:45:00 10:45:[address] Sp[address] [facility] 2017-11-10 2017-11-10 Outpatient [facility] [id number] Common 10:15:00 10:15:[address] Sp[address] [facility] 2017-11-06 2017-11-06 Outpatient [facility] [id number] Common 08:00:00 08:00:[address] Sp[address] [facility] 2017-09-23 2017-09-23 Outpatient [facility] [id number] Common 16:07:00 16:07:[address] Sp[address] it [address] [facility] 2017-09-03 2017-09-03 AppointRHIANNON Su [facility] 4 [id number] [place] 11:00:00 11:00:00 t; KARISSA CLEANING gy [facility] mar CLEANING NP 2017-08-27 2017-08-27 Appointguerita HOOPER, UTP UroGynecolo 4 [id number] [place] 14:10:00 14:10:00 t; KARISSA CLEANING gy [facility] mar CLEANING NP 2017-08-21 2017-08-21 Appointguerita HOOPER, UTP UroGynecolo 4 [id number] [place] 10:10:00 10:10:00 t; KARISSA CLEANING [facility] mar CLEAN[facility] NP 2017-08-14 2017-08-14 [facility] HALBROJARRETT, UTP UroGynecolo 4 [id number] [place] 11:00:00 11:00:00 t; KARISSA CLEANING gy Center [facility] mar KARISSA CLEANING 2017-07-31 2017-07-31 Appointmen HALBROOK, UTP UroGynecolo 4 [id number] [place] 14:10:00 14:10:00 t; KARISSA CLEAINNG gy Center [facility] KARISSA CLEANING 2017-07-24 2017-07-24 Appointmen HALBROOK, UTP UroGynecolo 4 [id number] [place] 13:20:00 13:20:00 t; KARISSA CLEANING gy Center [facility] KARISSA CLEANING 2017-07-17 2017-07-17 Appointmen HALBROJARRETT, UTP UroGynecolo 4 [id number] [place] 14:10:00 14:10:00 t; KARISSA CLEANING gy Center [facility] KARISSA CLEANING 2017-07-03 2017-07-03 [facility] UROGYN1, UTP Women's [id number] [place] 09:00:00 09:00:00 t; [facility], [facility] LAVERN 2017-06-26 2017-06-26 [facility] HALBROJARRETT, [facility] UroGynecolo 4 [id number] [place] 09:00:00 09:00:00 t; KARISSA CLEANING gy Center [facility] KARISSA CLEANING 2017-06-25 2017-06-25 Outpatient [facility] [id number] Common 09:30:00 09:30:00 t Constant Therapy [facility] it [employer] [facility] 2017-06-19 2017-06-19 Appointmen BRADFORDHUNGJARRETT, UTP UroGynecolo 4 [id number] [place] 15:20:00 15:20:00 t; KARISSA CLEANING gy Center [facility] KARISSA CLEANING 2017-06-12 2017-06-12 Appointmen HALBROOK, UTP UroGynecolo 4 [id number] [place] 13:20:00 13:20:00 t; KARISSA CLEANING [facility] MICHAEL [facility] ans SHEFALI, ARMAMENT INSTALLER 2017-06-09 2017-06-09 Appointmen HALBROOK, UTP UTP [id number] [place] 09:20:00 09:20:00 t; KARISSA CLEANING Phys ici HALBROOK, ans SHEFALI, ARMAMENT INSTALLER 2016-12-19 2016-12-19 Appointmen HALBROOK, UTP UTP [id number] UT 10:10:00 10:10:00 t; KARISSA CLEANING Phys ici HALBROOK, ans SHEFALI, ARMAMENT INSTALLER 2016-11-28 2016-11-28 Appointmen HALBROOK, UTP UTP [id number] [place] 10:10:00 10:10:00 t; KARISSA CLEANING Phys ici HALBROOK, ans SHEFALI, ARMAMENT INSTALLER 2016-09-12 2016-09-12 Appointmen HALBROOK, UTP UTP [id number] UT 13:20:00 13:20:00 t; KARISSA CLEANING Phys ici HALBROOK, ans SHEFALI, ARMAMENT INSTALLER 2016-04-01 2016-04-01 Emergency nullFlavo [facility] [id number] Memoria 17:43:00 23:41:00 r Amador 02 l Clementon Judith 2016-04-01 2016-04-01 Emergency nullFlavo [facility] [id number] Memoria 17:43:00 23:41:00 r [place] 02 l Clementon Judith 2016-04-01 2016-04-01 [facility] [id number] 11:43:00 17:41:00 Ina 2015-11-30 2015-11-30 [facility] PHILIPOK, UTP UTP [id number] [place] 09:00:00 09:00:00 t; KARISSA CLEANING Phys ici HALBROOK, ans SHEFALI, ARMAMENT INSTALLER 2015-10-20 2015-10-20 Appointmen DERESUSANA, UTP UTP [id number] UT 10:10:00 10:10:00 t; Preeti CARTER ans NINA, M.D. 2015-09-21 2015-09-21 Appointmen LAVERN, UTP UTP [id number] [place] 13:00:00 13:00:00 t; Preeti CARTER ans NINA, M.D. 2015-08-10 2015-08-10 OBS Day nullFlavo [facility] [id number] Memoria 12:24:00 19:42:00 Surgery r Amador 00 l Clementon Judith 2015-08-10 2015-08-10 OBS Day nullFlavo [facility] [id number] Memoria 12:24:00 19:42:00 Surgery r Amador 00 l Clementon Judith 2015-08-10 2015-08-10 Outpatient CONRADO Puckett [facility] [id number] 07:24:00 14:42:00 Andressa 00 [place] 2015-08-10 2015-08-10 [facility] UTP [id number] [place] 09:30:00 09:30:00 t; Preeti CARTER ans NINA, M.D. 2015-08-02 2015-08-02 [facility] [place], [facility] UTP [id number] [place] 08:30:00 08:30:00 t; Preeti CARTER ans NINA, M.D. 2015-07-05 2015-07-05 [facility] [place], [facility] UTP [id number] [place] 08:30:00 08:30:00 t; Preeti CARTER ans NINA, M.D. 2015-04-28 2015-04-[address] [facility] [id number] Memoria 15:30:00 04:59:00 Services r Outpatient 02 l Imaging - Randy rasheed Elise 2015-04-28 2015-04-[address] [facility] [id number] Memoria 15:30:00 04:59:00 Services r Outpatient 02 l Imaging - Randy n Gosia 2015-04-28 2015-04-28 Outpatient Lavern 2.16.840. 2.16.840.1. [id number] 10:30:00 23:59:00 Andressa [id number]. 246848.3.61 02 [place] 3.615.101 5.101 2011-09-02 2011-09-02 [facility] [id number] Memoria 08:48:00 08:48:00 00 antony English 2011-09-02 2011-09-02 OD CASSIEIE MHIE [id number] Memoria 08:48:00 08:48:00 00 antony English Results Test Description Test Time Test Comments Results Result Comments Source CULTURE, URINE 2022-04-04 SPECIMEN NUMBER: 16:03:59 [id number] CULTURE, URINE SPECIMEN NUMBER: [id number] SOURCE: URINE REPORT STATUS: FINAL ISOLATE NUMBER 1: IDENTIFICATION: 04/04/2022 50-100,000 CFU/ML YEAST VAGINAL PATHOGENS DNA PANEL 2022-04-03 15:21:17 Test Item Value Reference Range Interpretation Comme nts JACQUES SPECIES (test code POSITIVE NEGATIVE A = ) G. VAGINALIS (test code = POSITIVE NEGATIVE A ) T. VAGINALIS (test code = NEGATIVE NEGATIVE N ote: The BD Affirm VPIII Microbial ) Identification Testis a DNA probe test intended for e in the detectionand identification of Jacques species, Gardnerellavagi nalis and Trichomonas vaginalis nucle ic acid. [facility] has important patho logy staff changes effective 04/10. New pathology staff will provide uninterrupted, excellent patient care and clinical co nsultation. See URL: [email or web address]. UNLESS OTHERWIS E INDICATED, ALL TESTING PERFORM ED AT CLINICAL PATHOLOGY [facility], [place] [address] 30 DIRECTOR OF MARKET INTELLIGENCE: ALEX HERNANDEZ M.D. CLIA NUMBER [id number] CAP ACCREDITATION N O. [id number] POC [id number] 14:39:00 Test Item Value Reference Range Interpretation Comments POC glucose (test code = 237 mg/dL 65-99 H Ope rator Name: [facility] 75673-4) AdamDevice ID: [id number] able: [facility] Notified service line layer Interpretation (test Abnormal code = 65198-9) [facility] [id number] 14:39:00 Test Item Value Reference Range Interpretation Comments POC glucose (test code = 237 mg/dL 65-99 H Ope rator Name: [facility] 86601-8) AdamDevice ID: [id number] able: [facility] Notified service line layer Interpretation (test Abnormal code = 49425-5) [facility] [id number] 14:39:00 Test Item Value Reference Range Interpretation Comments POC glucose (test code = 237 mg/dL 65-99 H Ope rator Name: [place]ino 57350-4) Karla ID: [id number] able: [facility] Notified service line layer Interpretation (test Abnormal code = 18637-6) [facility] urinalysis dipstick manually [id number] 19:16:00 Test Item Value Reference Range Interpretation Comments Glucose, UA (test code 1000 mg/dL Negative A = 6180253) Bilirubin, UA (test Negative Negative code = 0014632) Ketones, Urine (test Negative Negative, Trace code = 58013-3) Spec Grav, UA (test code = 829495080) Blood, UA (test code = Mod 977654794) pH, UA (test code = 5.0-8.5 0466954) Protein, UA (test code Negative Negative, Trace, = 0467465) 200(+2)mg/dL, 15/mg/dL Urobilinogen, UA (test See_Comment [Aut omated code = 2677830) message] The system which generated this result transmitted reference range : 0.2. The refere nce range was not u sed to interpret th is result as normal/abnormal . Nitrite, UA (test code Negative Negative, Trace = 8556837) Leukocytes, UA (test Negative Negative, Trace code = 8691407) Lab Interpretation Abnormal (test code = 66124-3) [facility] urinalysis dipstick manually [id number] 18:43:00 Test Item Value Reference Range Interpretation Comments Glucose, UA (test code 500 mg/dL Negative A = 9212607) Bilirubin, UA (test Negative Negative code = 9255465) Ketones, Urine (test Negative Negative, Trace code = 65887-9) Spec Grav, UA (test code = 488959034) Blood, UA (test code = Trace 931099957) pH, UA (test code = 5.0-8.5 6271696) Protein, UA (test code Negative Negative, Trace, = 1468210) 200(+2)mg/dL, 15/mg/dL Urobilinogen, UA (test See_Comment [Aut omated code = 1728895) message] The system which generated this result transmitted reference range : 0.2. The refere nce range was not u sed to interpret th is result as normal/abnormal . Nitrite, UA (test code Negative Negative, Trace = 8947913) Leukocytes, UA (test Negative Negative, Trace code = 9854067) Lab Interpretation Abnormal (test code = 12907-8) [facility] HEMOGLOBIN A1C [id number] 18:23:00 Test Item Value Reference Range Interpretation Comments POCT HBA1C (test code = 4548-4) 14 % 4-6 A Lab Interpretation (test code = Abnormal 24427-9) [facility] HEMOGLOBIN A1C [id number] 18:23:00 Test Item Value Reference Range Interpretation Comments POCT HBA1C (test code = 4548-4) 14 % 4-6 A Lab Interpretation (test code = Abnormal 33455-5) [facility] 12 [id number] 00:09:04 Test Item Value Reference Range Interpretation Comments Ventricular rate (test code = 253) Atrial rate (test code = 255) [place] interval (test code = 266) QRSD interval [...] abnormality no longer evident in Lateral leads[facility], (w Contrast, Strain and 3D if needed)2020-05-05 21:56:13 Test Item Value Reference Range Interpretation Comments AoV Area, Vmax (test 3.00 cm2 code = 4217972380) AoV Area, VTI (test 2.90 cm2 code = 3096938605) AoV Mean PG (test code mmHg = 8803790502) AoV Peak PG (test code mmHg = 0584700436) AoV Vmax (test code = 1.31 m/s 2474222622) AoV VTI (test code = 0.26 m 3855376659) IVS,d (test code = 1.03 cm 5392016224) IVS/LVPW,2D (test code = 9753255773) Left Atrium Dimension 4.40 cm Anterior (test code = 4827272806) LV,d (test code = 5.15 cm 5491518461) LV EF,2D (test code = 55.90 % 8287689218) LV,s (test code = 3.92 cm 9877132224) LVOT area (test code = 3.14 cm2 9600839693) LVOT Diam,S (test code 2.00 cm = 3036871486) LVOT Vmax (test code = 1.25 m/s 1876423017) LVOT VTI (test code = 0.24 m 8610622172) LVPWD,d (test code = 0.86 cm 2704220557) PV Pk Grad (test code = mmHg 2220457892) PV VMAX (test code = 0.90 m/s 3503518309) RVOT Vmax (test code = 0.78 m/s 9004929500) TR Vpeak (test code = 2.34 mm/s 0343523637) MV E A ratio (test code = 1338742758) TR pk grad (test code = mmHg 2825562584) MR Vmax (test code = 4.27 m/s 5678211983) MR peak grad (test code mmHg = 7457387011) E wave decelartion time msec (test code = 4295384101) MV Peak A Sam (test 0.87 m/s code = 2997036598) MV valve area p 1/2 3.17 cm2 method (test code = 5562081509) MV Peak E Sam (test 0.83 m/s code = 0930657532) MV stenosis pressure 69.31 ms 1/2 time (test code = 4798327909) LVOT stroke volume 0.75 cm3 (test code = 2901821086) AV LVOT peak gradient mmHg (test code = 8516514654) Ao Root,d,2D (test code 3.00 cm = 1015958458) LV SYS VOL (test code = 66.72 ml 0305000160) LV LICONA VOL (test code 126.64 ml = 1020676019) LV SV Teich 2D (test 59.92 ml code = 2836451149) LV Vol s Teich PSAX 66.72 ml (test code = 5865777809) RVOT pk grad (test code mmHg = 6794760371) AoV Vmn (test code = 0296165965) LV FS Teich 2D (test code = 2192359197) MV AE ratio (test code = 3416051970) LV FS Cube 2D (test code = 4078044070) LVOT Vmn (test code = 9332712451) Aov area Vmn (test code 2.80 cm2 = 0740030171) LVOT mean grad (test mmHg code = 8988693796) MAX Pred HR (test code = 1671165106) 85 of MPHR (test code = 1248328014) Ao d LA s ratio (test code = 0170485946) Calc MPHR (test code = bpm 8880581342) LV SV Cube 2D (test 76.35 ml code = 0587484492) LV vol d cube 2D (test 136.59 ml code = 9963103693) LV vol s cube 2D (test 60.24 ml code = 5621838024) MV Decel slope (test 3.45 m/s2 code = 4912908735) Pred Exer Dur R1 (test code = 3350912373) Pred METS R1 (test code = 2739929108) Velocity Ratio (V1/V2) 0.95 m/s (test code = 4689) EF (test code = 47.32 % 4383429437) E/A ratio (test code = 4079965642) LVOT VTI (CM) (test 24.00 cm code = 1698409787) MARIOLA (test code = MARIOLA) Normal left ventricular size and function with an EF~ 55% to 60%.Normal right ventricular size and function.Structurally normal cardiac valves.Mild mitral regurgitation. Left atrial enlargement. Normal pericardium with no effusion.Grade 1 diastolic dysfunction. [facility] Brain W Wo Drgqxrfe2691-99-09 18:34:06EXAM: MRI BRAIN W WO CONTRAST CLINICAL [...] is no enhancing lesion in the brain. [id number] Interface, Radiology Results - 05/05/2020 1:37 PM CDT EXAM:MRI BRAIN [...] There is no enhancing lesion in the brain.[id number] HospitalUrine qefbpop3721-07-49 20:46:09 Test Item Value Reference Range Interpretation Comments Urine culture (test SEE COMMENT Bacteriu summer screen code = 2217944) negative. [facility] W Wo Akrmesda6579-71-35 19:49:34EXAMINATION: CT ANGIOGRAM HEAD W WO CONTRAST [...] occlusion or aneurysm.[id number] Neck W Wo Xiybnwic2317-63-28 19:48:26 EXAMINATION: CT ANGIOGRAM NECK W WO [...] artery patency. [id number] Interface, Radiology Results Incoming - 05/04/2020 2:51 [...] criteriaVertebral artery patency.[id number]_[id number] HospitalCT Stroke Brain Wo Dboabesn2499-62-94 19:42:38EXAMINATION: CT STROKE BRAIN WO CONTRAST CLINICAL [...] 1441 hours on 05/04/2020 who verbalized understanding. [facility]- [id number] Interface, Radiology Results - 05/04/2020 2:45 PM CDT EXAMINATION: CT [...] at 1441 hours on 05/04/2020 who verbalized understanding.[id number]] CULTURE, URINE, [id number] 14:25:01 Test Item Value Reference Range Interpretation Comments ORGANISM (test Escherichia coliEnterococcus code = 699-9) Species FINAL REPORT 50,000 - 100,000 CFU/mL (test code = Escherichia coli 10,000 - FINAL REPORT) 50,000 CFU/mL EnterococcusSpecies 10,000 - 50,000 CFU/mL [facility][H] [id number] 14:25:01 Test Item Value Reference Range Interpretation Comments ORGANISM (test code = Enterococcus 699-9) Species Ampicillin (test code - S = Ampicillin) Levofloxacin (test - S code = Levofloxacin) Nitrofurantoin (test - S code = Nitrofurantoin) Tetracycline (test - S code = Tetracycline) Vancomycin (test code SEE NOTES S S= Latoya ceptible, = Vancomycin) R= Resistant, I= Intermediate, N/A= Not Applicable [facility][H] [id number] 14:25:01 Test Item Value Reference Range Interpretation [...] Tetracycline (test code = - S Tetracycline) [facility][O] Urine Dipstick (In Office)2017-08-27 15:29:00 Test Item Value Reference Range Interpretation Comments LEUKOCYTES (test code = LEUKOCYTES) 2+ A NITRITE; Normal (test code = 68777-9) neg N UROBILINOGEN; Normal (test code = 0.2 N 07898-8) PROTEIN; Normal (test code = 61281-3) neg N pH (test code = pH) 6.5 N URINE BLOOD; Abnormal (test code = trace A 31193-3) SPECIFIC GRAVITY; Normal (test code = 1.020 N 2965-2) KETONES; Normal (test code = 92256-9) neg N BILIRUBIN; Normal (test code = 93352-4) neg N GLUCOSE; Normal (test code = 1547-9) neg N [facility]] CULTURE, URINE, [id number] 15:37:01 Test Item Value Reference Range Interpretation Comments ORGANISM (test code = Escherichia coli 699-9) FINAL REPORT (test 50,000 - 100,000 CFU/mL code = FINAL REPORT) Escherichia coli . 50,000 - 100,000 CFU/mL [facility][H] [id number] 15:37:01 Test Item Value Reference Range Interpretation [...] Resi stant, I= Intermediate, N/A= Not Applicable [facility][O] Urine Dipstick (In Office)2017-08-21 12:24:00 Test Item Value Reference Range Interpretation Comments LEUKOCYTES (test code = LEUKOCYTES) 2+ A NITRITE; Normal (test code = 82851-6) NEG N UROBILINOGEN; Normal (test code = 0.2 N 35342-0) PROTEIN; Abnormal (test code = 85854-0) 30 MG A pH (test code = pH) 5.5 N URINE BLOOD; Abnormal (test code = 2+ A 54277-5) SPECIFIC GRAVITY; Normal (test code = 1.030 N 2965-2) KETONES; Normal (test code = 95636-4) NEG N BILIRUBIN; Normal (test code = 24823-4) NEG N GLUCOSE; Normal (test code = 1547-9) NEG N [facility][O] Urine Dipstick (In Office)2017-06-09 10:06:00 Test Item Value Reference Range Interpretation Comments LEUKOCYTES (test code = LEUKOCYTES) 2+ A NITRITE; Normal (test code = 44601-1) NEG N UROBILINOGEN; Normal (test code = 0.2 N 95428-9) PROTEIN; Normal (test code = 93911-1) NEG N pH (test code = pH) 7.0 N URINE BLOOD; Abnormal (test code = 2+ A 40933-1) SPECIFIC GRAVITY; Normal (test code = 1.010 N 2965-2) KETONES; Normal (test code = 51144-0) NEG N BILIRUBIN; Normal (test code = NEG N 61448-5) GLUCOSE; Abnormal (test code = 1547-9) 250 MG A [facility]] BV/ VAGINITIS PANEL DNA PROBE [id number] 09:20:01 Test Item Value Reference Range Interpretation Comments Trichomonas vaginalis DNA (test code Negative Negative = 43178-9) Gardnerella vaginalis DNA; Abnormal Positive Negative A (test code = 6410-5) Jacques sp. DNA; Abnormal (test code Positive Negative A = 89320-0) [facility]] CULTURE, URINE, [id number] 09:20:01 Test Item Value Reference Range Interpretation Comments ORGANISM (test code = Escherichia coli 699-9) FINAL REPORT (test >100,000 CFU/mL code = FINAL REPORT) Escherichia coli 10,000 - 50,000 CFU/mL [facility][] [id number] 09:20:01 Test Item Value Reference Range Interpretation Comments ORGANISM (test code Escherichia coli = 699-9) Ciprofloxacin (test .75 S code = Ciprofloxacin) Levofloxacin (test 1.5 S code = Levofloxacin) Trimethoprim/Sulfame 32 R thoxazole (test code = Trimethoprim/Sulfame thoxazole) Ceftriaxone (test .094 S S= Suscept ible, code = Ceftriaxone) R= Resis tant, I= Intermediate, N/A= Not Applicable [facility]2017-02-20 20:20:00 Test Item Value Reference Range Interpretation Comments Eos BF (test code = Eos BF) 0 [facility]2017-02-20 20:20:00 Test Item Value Reference Range Interpretation Comments Macrophage BF (test code = Macrophage 0 BF) [facility]2017-02-20 20:20:00 Test Item Value Reference Range Interpretation Comments Color BF (test code = Yellow (04/01/16 2:20 Color BF) PM) [facility]2017-02-20 20:20:00 Test Item Value Reference Range Interpretation Comments CellCnt BF Type (test Other (04/01/16 2:20 code = CellCnt BF Type) PM) [facility]2017-02-20 20:20:00 Test Item Value Reference Range Interpretation Comments Clarity BF (test code = Slight Cloudy (04/01/16 Clarity BF) 2:20 PM) [facility]2017-02-20 20:20:00 Test Item Value Reference Range Interpretation Comments RBC BF (test code = RBC BF) 5375 [facility]2017-02-20 20:20:00 Test Item Value Reference Range Interpretation Comments WBC BF (test code = WBC BF) 980 [facility]2017-02-20 20:20:00 Test Item Value Reference Range Interpretation Comments Lymph BF (test code = Lymph BF) 44 [facility]2017-02-20 20:20:00 Test Item Value Reference Range Interpretation Comments Segs BF (test code = Segs BF) 56 [facility]2017-02-20 20:20:00 Test Item Value Reference Range Interpretation Comments Eos BF (test code = Eos BF) 0 [facility]2017-02-20 20:20:00 Test Item Value Reference Range Interpretation Comments Macrophage BF (test code = Macrophage 0 BF) [facility]2017-02-20 20:20:00 Test Item Value Reference Range Interpretation Comments Color BF (test code = Yellow (04/01/16 2:20 Color BF) PM) [facility]2017-02-20 20:20:00 Test Item Value Reference Range Interpretation Comments CellCnt BF Type (test Other (04/01/16 2:20 code = CellCnt BF Type) PM) [facility]2017-02-20 20:20:00 Test Item Value Reference Range Interpretation Comments Clarity BF (test code = Slight Cloudy (04/01/16 Clarity BF) 2:20 PM) [facility]2017-02-20 20:20:00 Test Item Value Reference Range Interpretation Comments RBC BF (test code = RBC BF) 5375 [facility]2017-02-20 20:20:00 Test Item Value Reference Range Interpretation Comments WBC BF (test code = WBC BF) 980 [facility]2017-02-20 20:20:00 Test Item Value Reference Range Interpretation Comments Lymph BF (test code = Lymph BF) 44 [facility]2017-02-20 20:20:00 Test Item Value Reference Range Interpretation Comments Segs BF (test code = Segs BF) 56 [facility]2017-02-20 20:20:00 Test Item Value Reference Range Interpretation Comments Eos BF (test code = Eos BF) 0 [facility]2017-02-20 20:20:00 Test Item Value Reference Range Interpretation Comments Macrophage BF (test code = Macrophage 0 BF) [facility]2017-02-20 20:20:00 Test Item Value Reference Range Interpretation Comments Color BF (test code = Yellow (04/01/16 2:20 Color BF) PM) [facility]2017-02-20 20:20:00 Test Item Value Reference Range Interpretation Comments CellCnt BF Type (test Other (04/01/16 2:20 code = CellCnt BF Type) PM) [facility]2017-02-20 20:20:00 Test Item Value Reference Range Interpretation Comments Clarity BF (test code = Slight Cloudy (04/01/16 Clarity BF) 2:20 PM) [facility]2017-02-20 20:20:00 Test Item Value Reference Range Interpretation Comments RBC BF (test code = RBC BF) 5375 [facility]2017-02-20 20:20:00 Test Item Value Reference Range Interpretation Comments WBC BF (test code = WBC BF) 980 [facility]2017-02-20 20:20:00 Test Item Value Reference Range Interpretation Comments Lymph BF (test code = Lymph BF) 44 [facility]2017-02-20 20:20:00 Test Item Value Reference Range Interpretation Comments Segs BF (test code = Segs BF) 56 [facility]2017-02-20 20:20:00 Test Item Value Reference Range Interpretation Comments Eos BF (test code = Eos BF) 0 [facility]2017-02-20 20:20:00 Test Item Value Reference Range Interpretation Comments Macrophage BF (test code = Macrophage 0 BF) [facility]2017-02-20 20:20:00 Test Item Value Reference Range Interpretation Comments Color BF (test code = Yellow (04/01/16 2:20 Color BF) PM) [facility]2017-02-20 20:20:00 Test Item Value Reference Range Interpretation Comments CellCnt BF Type (test Other (04/01/16 2:20 code = CellCnt BF Type) PM) [facility]2017-02-20 20:20:00 Test Item Value Reference Range Interpretation Comments Clarity BF (test code = Slight Cloudy (04/01/16 Clarity BF) 2:20 PM) [facility]2017-02-20 20:20:00 Test Item Value Reference Range Interpretation Comments RBC BF (test code = RBC BF) 5375 [facility]2017-02-20 20:20:00 Test Item Value Reference Range Interpretation Comments WBC BF (test code = WBC BF) 980 [facility]2017-02-20 20:20:00 Test Item Value Reference Range Interpretation Comments Lymph BF (test code = Lymph BF) 44 [facility]2017-02-20 20:20:00 Test Item Value Reference Range Interpretation Comments Segs BF (test code = Segs BF) 56 [facility]2017-02-20 20:20:00 Test Item Value Reference Range Interpretation Comments Eos BF (test code = Eos BF) 0 [facility]2017-02-20 20:20:00 Test Item Value Reference Range Interpretation Comments Macrophage BF (test code = Macrophage 0 BF) [facility]2017-02-20 20:20:00 Test Item Value Reference Range Interpretation Comments Color BF (test code = Yellow (04/01/16 2:20 Color BF) PM) [facility]2017-02-20 20:20:00 Test Item Value Reference Range Interpretation Comments CellCnt BF Type (test Other (04/01/16 2:20 code = CellCnt BF Type) PM) [facility]2017-02-20 20:20:00 Test Item Value Reference Range Interpretation Comments Clarity BF (test code = Slight Cloudy (04/01/16 Clarity BF) 2:20 PM) [facility]2017-02-20 20:20:00 Test Item Value Reference Range Interpretation Comments RBC BF (test code = RBC BF) 5375 [facility]2017-02-20 20:20:00 Test Item Value Reference Range Interpretation Comments WBC BF (test code = WBC BF) 980 [facility]2017-02-20 20:20:00 Test Item Value Reference Range Interpretation Comments Lymph BF (test code = Lymph BF) 44 [facility]2017-02-20 20:20:00 Test Item Value Reference Range Interpretation Comments Segs BF (test code = Segs BF) 56 [facility]2017-02-20 20:20:00 Test Item Value Reference Range Interpretation Comments Eos BF (test code = Eos BF) 0 [facility]2017-02-20 20:20:00 Test Item Value Reference Range Interpretation Comments Macrophage BF (test code = Macrophage 0 BF) [facility]2017-02-20 20:20:00 Test Item Value Reference Range Interpretation Comments Color BF (test code = Yellow (04/01/16 2:20 Color BF) PM) [facility]2017-02-20 20:20:00 Test Item Value Reference Range Interpretation Comments CellCnt BF Type (test Other (04/01/16 2:20 code = CellCnt BF Type) PM) [facility]2017-02-20 20:20:00 Test Item Value Reference Range Interpretation Comments Clarity BF (test code = Slight Cloudy (04/01/16 Clarity BF) 2:20 PM) [facility]2017-02-20 20:20:00 Test Item Value Reference Range Interpretation Comments RBC BF (test code = RBC BF) 5375 [facility]2017-02-20 20:20:00 Test Item Value Reference Range Interpretation Comments WBC BF (test code = WBC BF) 980 [facility]2017-02-20 20:20:00 Test Item Value Reference Range Interpretation Comments Lymph BF (test code = Lymph BF) 44 [facility]2017-02-20 20:20:00 Test Item Value Reference Range Interpretation Comments Segs BF (test code = Segs BF) 56 [facility]iaqplpNKIERPPXBP1244-79-92 19:10:00 Test Item Value Reference Range Interpretation Comments WBC (test code = WBC) 6.1 3.7-10.4 [facility] HospitalWajzwvpYIGZTDNYBT3109-12-74 19:10:00 Test Item Value Reference Range Interpretation Comments MPV (test code = MPV) 7.9 7.4-10.4 [facility] HospitalPuvxecsSESJCHHCCZ7553-99-33 19:10:00 Test Item Value Reference Range Interpretation Comments Platelet (test code = Platelet) 226 133-450 [facility] HospitalZdgudpyGAVVAQFJTO2772-80-68 19:10:00 Test Item Value Reference Range Interpretation Comments MCH (test code = MCH) 28.5 pg 27.0-31.0 [facility] HospitalLstuvhuTCWICAMVKR9643-09-43 19:10:00 Test Item Value Reference Range Interpretation Comments RDW (test code = RDW) 14.8 11.5-14.5 [facility] HospitalOqdiqmuEOONHQJVPE5195-34-90 19:10:00 Test Item Value Reference Range Interpretation Comments MCHC (test code = MCHC) 33.2 32.0-36.0 [facility] HospitalEfcsgwoNHWNXBBVKT4658-66-12 19:10:00 Test Item Value Reference Range Interpretation Comments Hct (test code = Hct) 30.8 36.0-48.0 [facility] HospitalRyexflrMVMFLRHDVV5512-30-99 19:10:00 Test Item Value Reference Range Interpretation Comments RBC (test code = RBC) 3.59 4.20-5.40 [facility] HospitalCqesooaAZLWAFQUZU1180-81-03 19:10:00 Test Item Value Reference Range Interpretation Comments Hgb (test code = Hgb) 10.2 12.0-16.0 [facility] HospitalYfatomxZKAFFKMGLY0806-36-09 19:10:00 Test Item Value Reference Range Interpretation Comments MCV (test code = MCV) 85.9 80.0-98.0 [facility] HospitalRezboxpBKGAKJGHWI5937-45-10 19:10:00 Test Item Value Reference Range Interpretation Comments Eosinophils # (test code 0.1 See_Comment [A utomated message] The = Eosinophils #) system whic h generated this result tra nsmitted reference range : <=0.5. The reference r lv was not used to int erpret this result as normal/abnormal . [facility] HospitalIsolcvnJUCRGGCKWR5311-34-44 19:10:00 Test Item Value Reference Range Interpretation Comments Monocytes # (test code 0.4 See_Comment [Aut omated message] The = Monocytes #) system which generated this result tra nsmitted reference range : <=0.8. The reference r lv was not used to int erpret this result as normal/abnormal . [facility] HospitalJecjljhCAWRDGKQCV9181-44-71 19:10:00 Test Item Value Reference Range Interpretation Comments Segs-Bands # (test code = Segs-Bands #) 4.0 1.5-8.1 [facility] HospitalHaajqbtXVFHAAHXYR8256-73-51 19:10:00 Test Item Value Reference Range Interpretation Comments Lymphocytes # (test code = Lymphocytes 1.5 1.0-5.5 #) [facility] HospitalTykahgoATETORVJFG5100-78-56 19:10:00 Test Item Value Reference Range Interpretation Comments Basophils # (test code 0.0 See_Comment [Aut omated message] The = Basophils #) system which generated this result tra nsmitted reference range : <=0.2. The reference r lv was not used to int erpret this result as normal/abnormal . [facility] HospitalGxlpxztPHTTRWQKQU7144-74-90 19:10:00 Test Item Value Reference Range Interpretation Comments Lymphocytes (test code = Lymphocytes) 25.0 20.0-40.0 [facility] HospitalRbyzisfZTBLTIQGZK9554-45-42 19:10:00 Test Item Value Reference Range Interpretation Comments Monocytes (test code = Monocytes) 6.9 2.0-12.0 [facility] HospitalChtjyanLOAUEDJOGK9540-31-59 19:10:00 Test Item Value Reference Range Interpretation Comments Segs (test code = Segs) 65.5 45.0-75.0 [facility] HospitalVvaixtzBASCXCUIXC7231-30-06 19:10:00 Test Item Value Reference Range Interpretation Comments Basophils (test code = 0.6 See_Comment [Aut omated message] The Basophils) system which ge nerated this result tra nsmitted reference range : <=1.0. The reference r lv was not used to int erpret this result as normal/abnormal . [facility] HospitalVuergbbJZGPYQOULP4029-91-07 19:10:00 Test Item Value Reference Range Interpretation Comments Eosinophils (test code = 2.0 See_Comment [A utomated message] The Eosinophils) system which ge nerated this result tra nsmitted reference range : <=4.0. The reference r lv was not used to int erpret this result as normal/abnormal . [facility] HospitalLedawrvXINEEERMGA4591-46-70 19:10:00 Test Item Value Reference Range Interpretation Comments WBC (test code = WBC) 6.1 3.7-10.4 [facility] HospitalKjqxublGJBSDFEUSP0603-16-30 19:10:00 Test Item Value Reference Range Interpretation Comments MPV (test code = MPV) 7.9 7.4-10.4 [facility] HospitalGjycqgmBUCYMNNKGX8879-35-42 19:10:00 Test Item Value Reference Range Interpretation Comments Platelet (test code = Platelet) 226 133-450 [facility] HospitalUiyehduVOWGFVTPZW9399-92-69 19:10:00 Test Item Value Reference Range Interpretation Comments MCH (test code = MCH) 28.5 pg 27.0-31.0 [facility] HospitalBwegmxtXJLGATWWIV5569-82-55 19:10:00 Test Item Value Reference Range Interpretation Comments RDW (test code = RDW) 14.8 11.5-14.5 [facility] HospitalEebsnakHURSNUKWIF3845-16-96 19:10:00 Test Item Value Reference Range Interpretation Comments MCHC (test code = MCHC) 33.2 32.0-36.0 [facility] HospitalCyjeipiGHSHDTEIKV0021-45-97 19:10:00 Test Item Value Reference Range Interpretation Comments Hct (test code = Hct) 30.8 36.0-48.0 [facility] HospitalSbxonmzYLPFPAPKBE1275-40-78 19:10:00 Test Item Value Reference Range Interpretation Comments RBC (test code = RBC) 3.59 4.20-5.40 [facility] HospitalPnwxladCGOXNDVUNB4734-12-92 19:10:00 Test Item Value Reference Range Interpretation Comments Hgb (test code = Hgb) 10.2 12.0-16.0 [facility] HospitalHzvgvtoHXPYSQNTDR0944-53-78 19:10:00 Test Item Value Reference Range Interpretation Comments MCV (test code = MCV) 85.9 80.0-98.0 [facility] HospitalYdvlgqfZUXBHSFGPY7760-81-87 19:10:00 Test Item Value Reference Range Interpretation Comments Eosinophils # (test code 0.1 See_Comment [A utomated message] The = Eosinophils #) system whic h generated this result tra nsmitted reference range : <=0.5. The reference r lv was not used to int erpret this result as normal/abnormal . [facility] HospitalMwdzmndVCMTWLIBUP6515-26-65 19:10:00 Test Item Value Reference Range Interpretation Comments Monocytes # (test code 0.4 See_Comment [Aut omated message] The = Monocytes #) system which generated this result tra nsmitted reference range : <=0.8. The reference r lv was not used to int erpret this result as normal/abnormal . [facility] HospitalEfawukvPTKERZDTFH6524-70-01 19:10:00 Test Item Value Reference Range Interpretation Comments Segs-Bands # (test code = Segs-Bands #) 4.0 1.5-8.1 [facility] HospitalZnhklctVLAVNJSFJO0062-87-24 19:10:00 Test Item Value Reference Range Interpretation Comments Lymphocytes # (test code = Lymphocytes 1.5 1.0-5.5 #) [facility] HospitalDpeircvDZQJBBQPAM7748-61-48 19:10:00 Test Item Value Reference Range Interpretation Comments Basophils # (test code 0.0 See_Comment [Aut omated message] The = Basophils #) system which generated this result tra nsmitted reference range : <=0.2. The reference r lv was not used to int erpret this result as normal/abnormal . [facility] HospitalNrpyiqfWLSZPIHKGG4369-93-45 19:10:00 Test Item Value Reference Range Interpretation Comments Lymphocytes (test code = Lymphocytes) 25.0 20.0-40.0 [facility] HospitalLnvfksoZJZCEVUJBM6257-89-49 19:10:00 Test Item Value Reference Range Interpretation Comments Monocytes (test code = Monocytes) 6.9 2.0-12.0 [facility] HospitalWksuqxkJESJGGUISN7612-57-48 19:10:00 Test Item Value Reference Range Interpretation Comments Segs (test code = Segs) 65.5 45.0-75.0 [facility] HospitalTocgqybIRZEXKLJED5135-38-55 19:10:00 Test Item Value Reference Range Interpretation Comments Basophils (test code = 0.6 See_Comment [Aut omated message] The Basophils) system which ge nerated this result tra nsmitted reference range : <=1.0. The reference r lv was not used to int erpret this result as normal/abnormal . [facility] HospitalKcyyoogYLSCBQXXPC6193-92-63 19:10:00 Test Item Value Reference Range Interpretation Comments Eosinophils (test code = 2.0 See_Comment [A utomated message] The Eosinophils) system which ge nerated this result tra nsmitted reference range : <=4.0. The reference r lv was not used to int erpret this result as normal/abnormal . [facility] HospitalIknrovaNRIQPBQCKP7146-31-55 19:10:00 Test Item Value Reference Range Interpretation Comments WBC (test code = WBC) 6.1 3.7-10.4 [facility] HospitalBeyxnauFKSBGXBBQF1113-84-71 19:10:00 Test Item Value Reference Range Interpretation Comments MPV (test code = MPV) 7.9 7.4-10.4 [facility] [facility]UcmnyttFJOHPWTZLK3684-70-78 19:10:00 Test Item Value Reference Range Interpretation Comments Platelet (test code = Platelet) 226 133-450 [facility]EdiayveRUSYQFUVZS8153-60-90 19:10:00 Test Item Value Reference Range Interpretation Comments MCH (test code = MCH) 28.5 pg 27.0-31.0 [facility] HospitalDnhwnpeNIUCEWKOBT0158-74-19 19:10:00 Test Item Value Reference Range Interpretation Comments RDW (test code = RDW) 14.8 11.5-14.5 [facility] HospitalQtxjaruEFLVNBPYLX1780-43-72 19:10:00 Test Item Value Reference Range Interpretation Comments MCHC (test code = MCHC) 33.2 32.0-36.0 [facility] HospitalSxeqshnEWYHUEGLAB1093-18-64 19:10:00 Test Item Value Reference Range Interpretation Comments Hct (test code = Hct) 30.8 36.0-48.0 [facility] HospitalTwoqpzjLFVOKOANOA8171-93-37 19:10:00 Test Item Value Reference Range Interpretation Comments RBC (test code = RBC) 3.59 4.20-5.40 [facility] HospitalRaebqlrQYWIPWLRQK2976-45-71 19:10:00 Test Item Value Reference Range Interpretation Comments Hgb (test code = Hgb) 10.2 12.0-16.0 [facility] HospitalToztovnPELAUVEBTS7579-64-78 19:10:00 Test Item Value Reference Range Interpretation Comments MCV (test code = MCV) 85.9 80.0-98.0 [facility] HospitalYdgrganBKHGYPIIXA2947-65-02 19:10:00 Test Item Value Reference Range Interpretation Comments Eosinophils # (test code 0.1 See_Comment [A utomated message] The = Eosinophils #) system whic h generated this result tra nsmitted reference range : <=0.5. The reference r lv was not used to int erpret this result as normal/abnormal . [facility] HospitalOpgpnmjJTUGBEREMJ8055-94-63 19:10:00 Test Item Value Reference Range Interpretation Comments Monocytes # (test code 0.4 See_Comment [Aut omated message] The = Monocytes #) system which generated this result tra nsmitted reference range : <=0.8. The reference r lv was not used to int erpret this result as normal/abnormal . [facility] HospitalXwtymzxAWRKOKHEWM6964-44-22 19:10:00 Test Item Value Reference Range Interpretation Comments Segs-Bands # (test code = Segs-Bands #) 4.0 1.5-8.1 [place] [id number] 19:10:00 Test Item Value Reference Range Interpretation Comments Lymphocytes # (test code = Lymphocytes 1.5 1.0-5.5 #) [facility] HospitalUfzwrubJNZTZPVNZE0709-77-94 19:10:00 Test Item Value Reference Range Interpretation Comments Basophils # (test code 0.0 See_Comment [Aut omated message] The = Basophils #) system which generated this result tra nsmitted reference range : <=0.2. The reference r lv was not used to int erpret this result as normal/abnormal . [facility] HospitalLizrahwNUGFHVAQSM4207-36-87 19:10:00 Test Item Value Reference Range Interpretation Comments Lymphocytes (test code = Lymphocytes) 25.0 20.0-40.0 [facility] HospitalAomqnrqNVQLMUVOEK6067-85-99 19:10:00 Test Item Value Reference Range Interpretation Comments Monocytes (test code = Monocytes) 6.9 2.0-12.0 [facility] HospitalTiitbeiIQXWCENUSB0530-20-05 19:10:00 Test Item Value Reference Range Interpretation Comments Segs (test code = Segs) 65.5 45.0-75.0 [facility] HospitalDxtftqcBBULMNSORQ8235-25-08 19:10:00 Test Item Value Reference Range Interpretation Comments Basophils (test code = 0.6 See_Comment [Aut omated message] The Basophils) system which ge nerated this result tra nsmitted reference range : <=1.0. The reference r lv was not used to int erpret this result as normal/abnormal . [facility] HospitalIqvxgbzHXCCHJPCME3031-70-66 19:10:00 Test Item Value Reference Range Interpretation Comments Eosinophils (test code = 2.0 See_Comment [A utomated message] The Eosinophils) system which ge nerated this result tra nsmitted reference range : <=4.0. The reference r lv was not used to int erpret this result as normal/abnormal . [facility] HospitalGzullqzINCPHGEKEZ3267-18-20 19:10:00 Test Item Value Reference Range Interpretation Comments WBC (test code = WBC) 6.1 3.7-10.4 [facility] HospitalJicnujeOHMDKJEYXK3747-76-87 19:10:00 Test Item Value Reference Range Interpretation Comments MPV (test code = MPV) 7.9 7.4-10.4 [facility] HospitalZnmthlrBRQBSINXBJ0214-65-44 19:10:00 Test Item Value Reference Range Interpretation Comments Platelet (test code = Platelet) 226 133-450 [facility] HospitalBuxfwzmVUBQTGFNDN6113-73-44 19:10:00 Test Item Value Reference Range Interpretation Comments MCH (test code = MCH) 28.5 pg 27.0-31.0 [facility] HospitalDrthoqoVZIGGWTAQJ0538-86-39 19:10:00 Test Item Value Reference Range Interpretation Comments RDW (test code = RDW) 14.8 11.5-14.5 [facility] HospitalEsugeopDBLHKGXCNV4709-76-66 19:10:00 Test Item Value Reference Range Interpretation Comments MCHC (test code = MCHC) 33.2 32.0-36.0 [facility] HospitalNrkoqkkQQNIRIRWMV7158-49-51 19:10:00 Test Item Value Reference Range Interpretation Comments Hct (test code = Hct) 30.8 36.0-48.0 [facility] HospitalYxnfnavYOBBCJUODV9579-28-23 19:10:00 Test Item Value Reference Range Interpretation Comments RBC (test code = RBC) 3.59 4.20-5.40 [facility] HospitalRpqwnswGAPJENCNWY4058-15-70 19:10:00 Test Item Value Reference Range Interpretation Comments Hgb (test code = Hgb) 10.2 12.0-16.0 [facility] HospitalNmwykhmOGMOVWQSNO4161-28-86 19:10:00 Test Item Value Reference Range Interpretation Comments MCV (test code = MCV) 85.9 80.0-98.0 [facility] HospitalEjpnmljGNOQWUUJTX5027-74-05 19:10:00 Test Item Value Reference Range Interpretation Comments Eosinophils # (test code 0.1 See_Comment [A utomated message] The = Eosinophils #) system whic h generated this result tra nsmitted reference range : <=0.5. The reference r lv was not used to int erpret this result as normal/abnormal . [facility] HospitalFddjmltYKNWJOVVFF2951-78-56 19:10:00 Test Item Value Reference Range Interpretation Comments Monocytes # (test code 0.4 See_Comment [Aut omated message] The = Monocytes #) system which generated this result tra nsmitted reference range : <=0.8. The reference r lv was not used to int erpret this result as normal/abnormal . [facility] HospitalDelzpsyCQOCQMNNTB0530-72-38 19:10:00 Test Item Value Reference Range Interpretation Comments Segs-Bands # (test code = Segs-Bands #) 4.0 1.5-8.1 [facility] HospitalQcvmaubSAVLTCICTS1822-67-70 19:10:00 Test Item Value Reference Range Interpretation Comments Lymphocytes # (test code = Lymphocytes 1.5 1.0-5.5 #) [facility] HospitalJnimmmtGVAXRTFKCT9034-43-83 19:10:00 Test Item Value Reference Range Interpretation Comments Basophils # (test code 0.0 See_Comment [Aut omated message] The = Basophils #) system which generated this result tra nsmitted reference range : <=0.2. The reference r lv was not used to int erpret this result as normal/abnormal . [facility] HospitalLrzipneXLKDOVAIKD1764-92-41 19:10:00 Test Item Value Reference Range Interpretation Comments Lymphocytes (test code = Lymphocytes) 25.0 20.0-40.0 [facility] HospitalYerhuqzNMPCPADXKG4831-26-91 19:10:00 Test Item Value Reference Range Interpretation Comments Monocytes (test code = Monocytes) 6.9 2.0-12.0 [facility] HospitalIcmyhnlJPZMFZLLUR4059-09-65 19:10:00 Test Item Value Reference Range Interpretation Comments Segs (test code = Segs) 65.5 45.0-75.0 [facility] HospitalJrpfvkwJOTYBSFRFF3932-58-54 19:10:00 Test Item Value Reference Range Interpretation Comments Basophils (test code = 0.6 See_Comment [Aut omated message] The Basophils) system which ge nerated this result tra nsmitted reference range : <=1.0. The reference r lv was not used to int erpret this result as normal/abnormal . [facility] HospitalDkyvnobCWDRYUKBRC0241-00-64 19:10:00 Test Item Value Reference Range Interpretation Comments Eosinophils (test code = 2.0 See_Comment [A utomated message] The Eosinophils) system which ge nerated this result tra nsmitted reference range : <=4.0. The reference r lv was not used to int erpret this result as normal/abnormal . [facility] HospitalKcaxtrrUUPIPNHBRR6871-84-23 19:10:00 Test Item Value Reference Range Interpretation Comments WBC (test code = WBC) 6.1 3.7-10.4 [facility] HospitalOvflrezELCUHDDYSH3815-89-41 19:10:00 Test Item Value Reference Range Interpretation Comments MPV (test code = MPV) 7.9 7.4-10.4 [facility] HospitalYvhngnpVZRGUNMWBI2011-00-89 19:10:00 Test Item Value Reference Range Interpretation Comments Platelet (test code = Platelet) 226 133-450 [facility] HospitalEohmmjdBQBHBVCAPA4915-43-44 19:10:00 Test Item Value Reference Range Interpretation Comments MCH (test code = MCH) 28.5 pg 27.0-31.0 [facility] HospitalKuxqncqSEDQNEVOKO3919-05-36 19:10:00 Test Item Value Reference Range Interpretation Comments RDW (test code = RDW) 14.8 11.5-14.5 [facility] HospitalLnuepneOYUEUOGONA8037-74-96 19:10:00 Test Item Value Reference Range Interpretation Comments MCHC (test code = MCHC) 33.2 32.0-36.0 [facility] HospitalBnzwoqkLBYSPMXIUH9631-97-31 19:10:00 Test Item Value Reference Range Interpretation Comments Hct (test code = Hct) 30.8 36.0-48.0 [facility] HospitalGainygsTMYXEHJDWV8231-32-72 19:10:00 Test Item Value Reference Range Interpretation Comments RBC (test code = RBC) 3.59 4.20-5.40 [facility] HospitalRqctyajWODXJSJHSU8641-15-51 19:10:00 Test Item Value Reference Range Interpretation Comments Hgb (test code = Hgb) 10.2 12.0-16.0 [facility] HospitalThetsqzNWZPBGZLKG7565-59-70 19:10:00 Test Item Value Reference Range Interpretation Comments MCV (test code = MCV) 85.9 80.0-98.0 [facility] HospitalZykewvuDGJUAPIUMK2703-43-06 19:10:00 Test Item Value Reference Range Interpretation Comments Eosinophils # (test code 0.1 See_Comment [A utomated message] The = Eosinophils #) system whic h generated this result tra nsmitted reference range : <=0.5. The reference r lv was not used to int erpret this result as normal/abnormal . [facility] HospitalVtuzwdtZNZPHUYGYM7262-50-56 19:10:00 Test Item Value Reference Range Interpretation Comments Monocytes # (test code 0.4 See_Comment [Aut omated message] The = Monocytes #) system which generated this result tra nsmitted reference range : <=0.8. The reference r lv was not used to int erpret this result as normal/abnormal . [facility] HospitalQhwytqfVFPCIDYOUK5722-36-25 19:10:00 Test Item Value Reference Range Interpretation Comments Segs-Bands # (test code = Segs-Bands #) 4.0 1.5-8.1 [facility] HospitalOvihsevCGYFPIGOPM8671-51-11 19:10:00 Test Item Value Reference Range Interpretation Comments Lymphocytes # (test code = Lymphocytes 1.5 1.0-5.5 #) [facility] HospitalAtlstivHXUNJPHXFD4522-55-16 19:10:00 Test Item Value Reference Range Interpretation Comments Basophils # (test code 0.0 See_Comment [Aut omated message] The = Basophils #) system which generated this result tra nsmitted reference range : <=0.2. The reference r lv was not used to int erpret this result as normal/abnormal . [facility] HospitalGxjctgyMGDPNGIWJS9106-19-49 19:10:00 Test Item Value Reference Range Interpretation Comments Lymphocytes (test code = Lymphocytes) 25.0 20.0-40.0 [facility] HospitalYxhzddeCYKZQZQAXU0636-08-47 19:10:00 Test Item Value Reference Range Interpretation Comments Monocytes (test code = Monocytes) 6.9 2.0-12.0 [facility] HospitalJmzgcpaLPHBWVZGUV3223-68-56 19:10:00 Test Item Value Reference Range Interpretation Comments Segs (test code = Segs) 65.5 45.0-75.0 [facility] HospitalCwxwcekASLJBFGIWQ1587-38-89 19:10:00 Test Item Value Reference Range Interpretation Comments Basophils (test code = 0.6 See_Comment [Aut omated message] The Basophils) system which ge nerated this result tra nsmitted reference range : <=1.0. The reference r lv was not used to int erpret this result as normal/abnormal . [facility] HospitalUaiovbsWTGZRAJPBT1493-32-51 19:10:00 Test Item Value Reference Range Interpretation Comments Eosinophils (test code = 2.0 See_Comment [A utomated message] The Eosinophils) system which ge nerated this result tra nsmitted reference range : <=4.0. The reference r lv was not used to int erpret this result as normal/abnormal . [facility] HospitalLyskzlfSAJPUZFANS5323-54-10 19:10:00 Test Item Value Reference Range Interpretation Comments WBC (test code = WBC) 6.1 3.7-10.4 [facility] HospitalItgorrgXCBMQMBXGB6491-65-45 19:10:00 Test Item Value Reference Range Interpretation Comments MPV (test code = MPV) 7.9 7.4-10.4 [facility] HospitalGqgwxlgEYPAWSVXKE1290-81-57 19:10:00 Test Item Value Reference Range Interpretation Comments Platelet (test code = Platelet) 226 133-450 [facility] HospitalMpsdcvfBFRMGRBGNY1749-87-33 19:10:00 Test Item Value Reference Range Interpretation Comments MCH (test code = MCH) 28.5 pg 27.0-31.0 [facility] HospitalQqxfbdgUZOIGFHGEF9154-74-73 19:10:00 Test Item Value Reference Range Interpretation Comments RDW (test code = RDW) 14.8 11.5-14.5 [facility] HospitalKcnedhtZZXHNYEFJU2046-93-59 19:10:00 Test Item Value Reference Range Interpretation Comments MCHC (test code = MCHC) 33.2 32.0-36.0 [facility] HospitalDpqepvpAGVFQCYYZY4991-81-07 19:10:00 Test Item Value Reference Range Interpretation Comments Hct (test code = Hct) 30.8 36.0-48.0 [facility] HospitalNtmzcyiFLZBXQKGCV4253-75-87 19:10:00 Test Item Value Reference Range Interpretation Comments RBC (test code = RBC) 3.59 4.20-5.40 [facility] HospitalUifdnlnZCWHDBLMVS5956-90-78 19:10:00 Test Item Value Reference Range Interpretation Comments Hgb (test code = Hgb) 10.2 12.0-16.0 [facility] HospitalMivhwdmSIYKSYJBBT3097-87-20 19:10:00 Test Item Value Reference Range Interpretation Comments MCV (test code = MCV) 85.9 80.0-98.0 [facility] HospitalRozjckiMCCEHCTZIJ9435-96-21 19:10:00 Test Item Value Reference Range Interpretation Comments Eosinophils # (test code 0.1 See_Comment [A utomated message] The = Eosinophils #) system whic h generated this result tra nsmitted reference range : <=0.5. The reference r lv was not used to int erpret this result as normal/abnormal . [facility] HospitalPrvjsaoSSDPTYHGEN9059-53-97 19:10:00 Test Item Value Reference Range Interpretation Comments Monocytes # (test code 0.4 See_Comment [Aut omated message] The = Monocytes #) system which generated this result tra nsmitted reference range : <=0.8. The reference r lv was not used to int erpret this result as normal/abnormal . [facility] HospitalQseyugwDRRXMXLAKF2767-05-29 19:10:00 Test Item Value Reference Range Interpretation Comments Segs-Bands # (test code = Segs-Bands #) 4.0 1.5-8.1 [facility] HospitalPmeqiorFRMYLZKZKK5613-85-20 19:10:00 Test Item Value Reference Range Interpretation Comments Lymphocytes # (test code = Lymphocytes 1.5 1.0-5.5 #) [facility] HospitalIwcgkvwPLBHLPSHAO1772-59-46 19:10:00 Test Item Value Reference Range Interpretation Comments Basophils # (test code 0.0 See_Comment [Aut omated message] The = Basophils #) system which generated this result tra nsmitted reference range : <=0.2. The reference r lv was not used to int erpret this result as normal/abnormal . [facility] HospitalNreonppESESCSJSAE6259-26-03 19:10:00 Test Item Value Reference Range Interpretation Comments Lymphocytes (test code = Lymphocytes) 25.0 20.0-40.0 [facility] HospitalZdeoutsOFHUQSJAES6954-66-36 19:10:00 Test Item Value Reference Range Interpretation Comments Monocytes (test code = Monocytes) 6.9 2.0-12.0 [facility] HospitalBjfiqidSNZZPRJVNK0066-15-04 19:10:00 Test Item Value Reference Range Interpretation Comments Segs (test code = Segs) 65.5 45.0-75.0 [facility] HospitalRlumsgfQJROIPZIVS5840-21-98 19:10:00 Test Item Value Reference Range Interpretation Comments Basophils (test code = 0.6 See_Comment [Aut omated message] The Basophils) system which ge nerated this result tra nsmitted reference range : <=1.0. The reference r lv was not used to int erpret this result as normal/abnormal . [facility] HospitalRwgniuvEUJDIESZEM9986-60-53 19:10:00 Test Item Value Reference Range Interpretation Comments Eosinophils (test code = 2.0 See_Comment [A utomated message] The Eosinophils) system which ge nerated this result tra nsmitted reference range : <=4.0. The reference r lv was not used to int erpret this result as normal/abnormal . [facility] HospitalLasnwnsFBLEUUZRQP3146-45-40 19:07:00 Test Item Value Reference Range Interpretation Comments Sed Rate (test code = 84 See_Comment [Auto mated message] The Sed Rate) system which ge nerated this result transmit neli reference range : <=20. The reference range was not used to interpr et this result as felipe l/abnormal. [facility] HospitalCrwdqieUHJGYAVCSW6812-52-48 19:07:00 Test Item Value Reference Range Interpretation Comments Sed Rate (test code = 84 See_Comment [Auto mated message] The Sed Rate) system which ge nerated this result transmit neli reference range : <=20. The reference range was not used to interpr et this result as felipe l/abnormal. [facility] HospitalHjobsrjQBEVYSNBPE0823-03-34 19:07:00 Test Item Value Reference Range Interpretation Comments Sed Rate (test code = 84 See_Comment [Auto mated message] The Sed Rate) system which ge nerated this result transmit neli reference range : <=20. The reference range was not used to interpr et this result as felipe l/abnormal. [facility] HospitalQsigubiMUHRLTAQZK8709-41-13 19:07:00 Test Item Value Reference Range Interpretation Comments Sed Rate (test code = 84 See_Comment [Auto mated message] The Sed Rate) system which ge nerated this result transmit neli reference range : <=20. The reference range was not used to interpr et this result as felipe l/abnormal. [facility] HospitalBywfxsdHAXJTEPENN1141-74-05 19:07:00 Test Item Value Reference Range Interpretation Comments Sed Rate (test code = 84 See_Comment [Auto mated message] The Sed Rate) system which ge nerated this result transmit neli reference range : <=20. The reference range was not used to interpr et this result as felipe l/abnormal. [facility] HospitalCdsmqxaKZRBSBJRPH8911-99-04 19:07:00 Test Item Value Reference Range Interpretation Comments Sed Rate (test code = 84 See_Comment [Auto mated message] The Sed Rate) system which ge nerated this result transmit neli reference range : <=20. The reference range was not used to interpr et this result as felipe l/abnormal. [facility]2017-02-20 18:33:00 Test Item Value Reference Range Interpretation Comments Lactic Acid Lvl (test code = Lactic 1.3 0.5-2.2 Acid Lvl) [facility] BNPCF4840-95-76 18:33:00 Test Item Value Reference Range Interpretation Comments eGFR (test code = eGFR) 91 [facility]2017-02-20 18:33:00 Test Item Value Reference Range Interpretation Comments B/C Ratio (test code = B/C Ratio) 19 6-25 [facility]2017-02-20 18:33:00 Test Item Value Reference Range Interpretation Comments A/G Ratio (test code = A/G Ratio) 0.6 0.7-1.6 [facility]2017-02-20 18:33:00 Test Item Value Reference Range Interpretation Comments Globulin (test code = Globulin) 4.7 2.7-4.2 [facility]2017-02-20 18:33:00 Test Item Value Reference Range Interpretation Comments AGAP (test code = AGAP) 12.0 10.0-20.0 [facility]2017-02-20 18:33:00 Test Item Value Reference Range Interpretation Comments Bili Total (test code = Bili Total) 0.2 0.2-1.3 [facility]2017-02-20 18:33:00 Test Item Value Reference Range Interpretation Comments Alk Phos (test code = Alk Phos) 116 39-136 [facility]2017-02-20 18:33:00 Test Item Value Reference Range Interpretation Comments CO2 (test code = CO2) 30 24-32 [facility]2017-02-20 18:33:00 Test Item Value Reference Range Interpretation Comments Chloride Lvl (test code = Chloride Lvl) 99 95-109 [facility]2017-02-20 18:33:00 Test Item Value Reference Range Interpretation Comments BUN (test code = BUN) 14 7-22 [facility]2017-02-20 18:33:00 Test Item Value Reference Range Interpretation Comments Glucose Lvl (test code = Glucose Lvl) 128 70-99 [facility]2017-02-20 18:33:00 Test Item Value Reference Range Interpretation Comments Creatinine Lvl (test code = Creatinine 0.74 0.50-1.40 Lvl) [facility]2017-02-20 18:33:00 Test Item Value Reference Range Interpretation Comments Potassium Lvl (test code = Potassium 5.0 3.5-5.1 Lvl) [facility]2017-02-20 18:33:00 Test Item Value Reference Range Interpretation Comments Sodium Lvl (test code = Sodium Lvl) 136 135-145 [facility]2017-02-20 18:33:00 Test Item Value Reference Range Interpretation Comments Total Protein (test code = Total 7.7 6.4-8.4 Protein) [facility]2017-02-20 18:33:00 Test Item Value Reference Range Interpretation Comments Calcium Lvl (test code = Calcium Lvl) 8.7 8.5-10.5 [facility]2017-02-20 18:33:00 Test Item Value Reference Range Interpretation Comments ALT (test code = ALT) 21 See_Comment [Auto mated message] The system which ge nerated this result transmit neli reference range : <=65. The reference range was not used to interpr et this result as felipe l/abnormal. [facility]2017-02-20 18:33:00 Test Item Value Reference Range Interpretation Comments Albumin Lvl (test code = Albumin Lvl) 3.0 3.5-5.0 [facility]2017-02-20 18:33:00 Test Item Value Reference Range Interpretation Comments AST (test code = AST) 27 See_Comment [Auto mated message] The system which ge nerated this result transmit neli reference range : <=37. The reference range was not used to interpr et this result as felipe l/abnormal. [facility] AustinZtmdiinUSLETNASYX1982-44-70 18:33:00 Test Item Value Reference Range Interpretation Comments C-REACTIVE PROTEIN (test code = 44.4 C-REACTIVE PROTEIN) [facility]2017-02-20 18:33:00 Test Item Value Reference Range Interpretation Comments Lactic Acid Lvl (test code = Lactic 1.3 0.5-2.2 Acid Lvl) [facility]2017-02-20 18:33:00 Test Item Value Reference Range Interpretation Comments eGFR (test code = eGFR) 91 [facility]2017-02-20 18:33:00 Test Item Value Reference Range Interpretation Comments B/C Ratio (test code = B/C Ratio) 19 6-25 [facility]2017-02-20 18:33:00 Test Item Value Reference Range Interpretation Comments A/G Ratio (test code = A/G Ratio) 0.6 0.7-1.6 [facility]2017-02-20 18:33:00 Test Item Value Reference Range Interpretation Comments Globulin (test code = Globulin) 4.7 2.7-4.2 [facility]2017-02-20 18:33:00 Test Item Value Reference Range Interpretation Comments AGAP (test code = AGAP) 12.0 10.0-20.0 [facility]2017-02-20 18:33:00 Test Item Value Reference Range Interpretation Comments Bili Total (test code = Bili Total) 0.2 0.2-1.3 [facility]2017-02-20 18:33:00 Test Item Value Reference Range Interpretation Comments Alk Phos (test code = Alk Phos) 116 39-136 [facility]2017-02-20 18:33:00 Test Item Value Reference Range Interpretation Comments CO2 (test code = CO2) 30 24-32 [facility] [facility]2017-[facility] 18:33:00 Test Item Value Reference Range Interpretation Comments Chloride Lvl (test code = Chloride Lvl) 99 95-109 [facility]2017-02-20 18:33:00 Test Item Value Reference Range Interpretation Comments BUN (test code = BUN) 14 7-22 [facility]2017-02-20 18:33:00 Test Item Value Reference Range Interpretation Comments Glucose Lvl (test code = Glucose Lvl) 128 70-99 [facility]2017-02-20 18:33:00 Test Item Value Reference Range Interpretation Comments Creatinine Lvl (test code = Creatinine 0.74 0.50-1.40 Lvl) [facility]2017-02-20 18:33:00 Test Item Value Reference Range Interpretation Comments Potassium Lvl (test code = Potassium 5.0 3.5-5.1 Lvl) [facility]2017-02-20 18:33:00 Test Item Value Reference Range Interpretation Comments Sodium Lvl (test code = Sodium Lvl) 136 135-145 [facility]2017-02-20 18:33:00 Test Item Value Reference Range Interpretation Comments Total Protein (test code = Total 7.7 6.4-8.4 Protein) [facility]2017-02-20 18:33:00 Test Item Value Reference Range Interpretation Comments Calcium Lvl (test code = Calcium Lvl) 8.7 8.5-10.5 [facility]2017-02-20 18:33:00 Test Item Value Reference Range Interpretation Comments ALT (test code = ALT) 21 See_Comment [Auto mated message] The system which ge nerated this result transmit neli reference range : <=65. The reference range was not used to interpr et this result as felipe l/abnormal. [facility]2017-02-20 18:33:00 Test Item Value Reference Range Interpretation Comments Albumin Lvl (test code = Albumin Lvl) 3.0 3.5-5.0 [facility]2017-02-20 18:33:00 Test Item Value Reference Range Interpretation Comments AST (test code = AST) 27 See_Comment [Auto mated message] The system which ge nerated this result transmit neli reference range : <=37. The reference range was not used to interpr et this result as felipe l/abnormal. [facility]em[facility]BUY[facility]JUNQJ9866[facility] 18:33:00 Test Item Value Reference Range Interpretation Comments C-REACTIVE PROTEIN (test code = 44.4 C-REACTIVE PROTEIN) [facility]2017-02-20 18:33:00 Test Item Value Reference Range Interpretation Comments Lactic Acid Lvl (test code = Lactic 1.3 0.5-2.2 Acid Lvl) [facility]2017-02-20 18:33:00 Test Item Value Reference Range Interpretation Comments eGFR (test code = eGFR) 91 [facility]2017-02-20 18:33:00 Test Item Value Reference Range Interpretation Comments B/C Ratio (test code = B/C Ratio) 19 6-25 [facility]2017-02-20 18:33:00 Test Item Value Reference Range Interpretation Comments A/G Ratio (test code = A/G Ratio) 0.6 0.7-1.6 [facility]2017-02-20 18:33:00 Test Item Value Reference Range Interpretation Comments Globulin (test code = Globulin) 4.7 2.7-4.2 [facility]2017-02-20 18:33:00 Test Item Value Reference Range Interpretation Comments AGAP (test code = AGAP) 12.0 10.0-20.0 [facility]2017-02-20 18:33:00 Test Item Value Reference Range Interpretation Comments Bili Total (test code = Bili Total) 0.2 0.2-1.3 [facility]2017-02-20 18:33:00 Test Item Value Reference Range Interpretation Comments Alk Phos (test code = Alk Phos) 116 39-136 [facility]2017-02-20 18:33:00 Test Item Value Reference Range Interpretation Comments CO2 (test code = CO2) 30 24-32 [facility]2017-02-20 18:33:00 Test Item Value Reference Range Interpretation Comments Chloride Lvl (test code = Chloride Lvl) 99 95-109 [facility]2017-02-20 18:33:00 Test Item Value Reference Range Interpretation Comments BUN (test code = BUN) 14 7-22 [facility]2017-02-20 18:33:00 Test Item Value Reference Range Interpretation Comments Glucose Lvl (test code = Glucose Lvl) 128 70-99 [facility]2017-02-20 18:33:00 Test Item Value Reference Range Interpretation Comments Creatinine Lvl (test code = Creatinine 0.74 0.50-1.40 Lvl) [facility]2017-02-20 18:33:00 Test Item Value Reference Range Interpretation Comments Potassium Lvl (test code = Potassium 5.0 3.5-5.1 Lvl) [facility]2017-02-20 18:33:00 Test Item Value Reference Range Interpretation Comments Sodium Lvl (test code = Sodium Lvl) 136 135-145 [facility]2017-02-20 18:33:00 Test Item Value Reference Range Interpretation Comments Total Protein (test code = Total 7.7 6.4-8.4 Protein) [facility]2017-02-20 18:33:00 Test Item Value Reference Range Interpretation Comments Calcium Lvl (test code = Calcium Lvl) 8.7 8.5-10.5 [facility]2017-02-20 18:33:00 Test Item Value Reference Range Interpretation Comments ALT (test code = ALT) 21 See_Comment [Auto mated message] The system which ge nerated this result transmit neli reference range : <=65. The reference range was not used to interpr et this result as felipe l/abnormal. [facility] [employer] [id number] 18:33:00 Test Item Value Reference Range Interpretation Comments Albumin Lvl (test code = Albumin Lvl) 3.0 3.5-5.0 [facility]2017-02-20 18:33:00 Test Item Value Reference Range Interpretation Comments AST (test code = AST) 27 See_Comment [Auto mated message] The system which ge nerated this result transmit neli reference range : <=37. The reference range was not used to interpr et this result as felipe l/abnormal. [id number] 18:33:00 Test Item Value Reference Range Interpretation Comments C-REACTIVE PROTEIN (test code = 44.4 C-REACTIVE PROTEIN) [facility]My [facility] [id number] 18:33:00 Test Item Value Reference Range Interpretation Comments Lactic Acid Lvl (test code = Lactic 1.3 0.5-2.2 Acid Lvl) [facility]2017-02-20 18:33:00 Test Item Value Reference Range Interpretation Comments eGFR (test code = eGFR) 91 [facility]2017-02-20 18:33:00 Test Item Value Reference Range Interpretation Comments B/C Ratio (test code = B/C Ratio) 19 6-25 [facility]2017-02-20 18:33:00 Test Item Value Reference Range Interpretation Comments A/G Ratio (test code = A/G Ratio) 0.6 0.7-1.6 [facility]2017-02-20 18:33:00 Test Item Value Reference Range Interpretation Comments Globulin (test code = Globulin) 4.7 2.7-4.2 [facility]2017-02-20 18:33:00 Test Item Value Reference Range Interpretation Comments AGAP (test code = AGAP) 12.0 10.0-20.0 [facility]2017-02-20 18:33:00 Test Item Value Reference Range Interpretation Comments Bili Total (test code = Bili Total) 0.2 0.2-1.3 [facility]2017-02-20 18:33:00 Test Item Value Reference Range Interpretation Comments Alk Phos (test code = Alk Phos) 116 39-136 [facility]2017-02-20 18:33:00 Test Item Value Reference Range Interpretation Comments CO2 (test code = CO2) 30 24-32 [facility]2017-02-20 18:33:00 Test Item Value Reference Range Interpretation Comments Chloride Lvl (test code = Chloride Lvl) 99 95-109 [facility]2017-02-20 18:33:00 Test Item Value Reference Range Interpretation Comments BUN (test code = BUN) 14 7-22 [facility]2017-02-20 18:33:00 Test Item Value Reference Range Interpretation Comments Glucose Lvl (test code = Glucose Lvl) 128 70-99 [facility]2017-02-20 18:33:00 Test Item Value Reference Range Interpretation Comments Creatinine Lvl (test code = Creatinine 0.74 0.50-1.40 Lvl) [facility]2017-02-20 18:33:00 Test Item Value Reference Range Interpretation Comments Potassium Lvl (test code = Potassium 5.0 3.5-5.1 Lvl) [facility]2017-02-20 18:33:00 Test Item Value Reference Range Interpretation Comments Sodium Lvl (test code = Sodium Lvl) 136 135-145 [facility]2017-02-20 18:33:00 Test Item Value Reference Range Interpretation Comments Total Protein (test code = Total 7.7 6.4-8.4 Protein) [facility]2017-02-20 18:33:00 Test Item Value Reference Range Interpretation Comments Calcium Lvl (test code = Calcium Lvl) 8.7 8.5-10.5 [facility]2017-02-20 18:33:00 Test Item Value Reference Range Interpretation Comments ALT (test code = ALT) 21 See_Comment [Auto mated message] The system which ge nerated this result transmit neli reference range : <=65. The reference range was not used to interpr et this result as felipe l/abnormal. [facility]2017-02-20 18:33:00 Test Item Value Reference Range Interpretation Comments Albumin Lvl (test code = Albumin Lvl) 3.0 3.5-5.0 [facility]2017-02-20 18:33:00 Test Item Value Reference Range Interpretation Comments AST (test code = AST) 27 See_Comment [Auto mated message] The system which ge nerated this result transmit neli reference range : <=37. The reference range was not used to interpr et this result as felipe l/abnormal. [facility] [id number] 18:33:00 Test Item Value Reference Range Interpretation Comments C-REACTIVE PROTEIN (test code = 44.4 C-REACTIVE PROTEIN) [facility]2017-02-20 18:33:00 Test Item Value Reference Range Interpretation Comments Lactic Acid Lvl (test code = Lactic 1.3 0.5-2.2 Acid Lvl) [facility]2017-02-20 18:33:00 Test Item Value Reference Range Interpretation Comments eGFR (test code = eGFR) 91 [facility]2017-02-20 18:33:00 Test Item Value Reference Range Interpretation Comments B/C Ratio (test code = B/C Ratio) 19 6-25 [facility]2017-02-20 18:33:00 Test Item Value Reference Range Interpretation Comments A/G Ratio (test code = A/G Ratio) 0.6 0.7-1.6 [facility]2017-02-20 18:33:00 Test Item Value Reference Range Interpretation Comments Globulin (test code = Globulin) 4.7 2.7-4.2 [facility]2017-02-20 18:33:00 Test Item Value Reference Range Interpretation Comments AGAP (test code = AGAP) 12.0 10.0-20.0 [facility]2017-02-20 18:33:00 Test Item Value Reference Range Interpretation Comments Bili Total (test code = Bili Total) 0.2 0.2-1.3 [facility]2017-02-20 18:33:00 Test Item Value Reference Range Interpretation Comments Alk Phos (test code = Alk Phos) 116 39-136 [facility]2017-02-20 18:33:00 Test Item Value Reference Range Interpretation Comments CO2 (test code = CO2) 30 24-32 [facility]2017-02-20 18:33:00 Test Item Value Reference Range Interpretation Comments Chloride Lvl (test code = Chloride Lvl) 99 95-109 [facility]2017-02-20 18:33:00 Test Item Value Reference Range Interpretation Comments BUN (test code = BUN) 14 7-22 [facility]2017-02-20 18:33:00 Test Item Value Reference Range Interpretation Comments Glucose Lvl (test code = Glucose Lvl) 128 70-99 [facility]2017-02-20 18:33:00 Test Item Value Reference Range Interpretation Comments Creatinine Lvl (test code = Creatinine 0.74 0.50-1.40 Lvl) [facility]2017-02-20 18:33:00 Test Item Value Reference Range Interpretation Comments Potassium Lvl (test code = Potassium 5.0 3.5-5.1 Lvl) [facility]2017-02-20 18:33:00 Test Item Value Reference Range Interpretation Comments Sodium Lvl (test code = Sodium Lvl) 136 135-145 [facility]2017-02-20 18:33:00 Test Item Value Reference Range Interpretation Comments Total Protein (test code = Total 7.7 6.4-8.4 Protein) [facility]2017-02-20 18:33:00 Test Item Value Reference Range Interpretation Comments Calcium Lvl (test code = Calcium Lvl) 8.7 8.5-10.5 [facility]2017-02-20 18:33:00 Test Item Value Reference Range Interpretation Comments ALT (test code = ALT) 21 See_Comment [Auto mated message] The system which ge nerated this result transmit neli reference range : <=65. The reference range was not used to interpr et this result as felipe l/abnormal. [facility]2017-02-20 18:33:00 Test Item Value Reference Range Interpretation Comments Albumin Lvl (test code = Albumin Lvl) 3.0 3.5-5.0 [facility]2017-02-20 18:33:00 Test Item Value Reference Range Interpretation Comments AST (test code = AST) 27 See_Comment [Auto mated message] The system which ge nerated this result transmit neli reference range : <=37. The reference range was not used to interpr et this result as felipe l/abnormal. [facility] [id number] 18:33:00 Test Item Value Reference Range Interpretation Comments C-REACTIVE PROTEIN (test code = 44.4 C-REACTIVE PROTEIN) [facility]2017-02-20 18:33:00 Test Item Value Reference Range Interpretation Comments Lactic Acid Lvl (test code = Lactic 1.3 0.5-2.2 Acid Lvl) [facility]2017-02-20 18:33:00 Test Item Value Reference Range Interpretation Comments eGFR (test code = eGFR) 91 [facility]2017-02-20 18:33:00 Test Item Value Reference Range Interpretation Comments B/C Ratio (test code = B/C Ratio) 19 6-25 [facility]2017-02-20 18:33:00 Test Item Value Reference Range Interpretation Comments A/G Ratio (test code = A/G Ratio) 0.6 0.7-1.6 [facility]2017-02-20 18:33:00 Test Item Value Reference Range Interpretation Comments Globulin (test code = Globulin) 4.7 2.7-4.2 [facility]2017-02-20 18:33:00 Test Item Value Reference Range Interpretation Comments AGAP (test code = AGAP) 12.0 10.0-20.0 [facility]2017-02-20 18:33:00 Test Item Value Reference Range Interpretation Comments Bili Total (test code = Bili Total) 0.2 0.2-1.3 [facility]2017-02-20 18:33:00 Test Item Value Reference Range Interpretation Comments Alk Phos (test code = Alk Phos) 116 39-136 [facility]2017-02-20 18:33:00 Test Item Value Reference Range Interpretation Comments CO2 (test code = CO2) 30 24-32 [facility]2017-02-20 18:33:00 Test Item Value Reference Range Interpretation Comments Chloride Lvl (test code = Chloride Lvl) 99 95-109 [facility]2017-02-20 18:33:00 Test Item Value Reference Range Interpretation Comments BUN (test code = BUN) 14 7-22 [facility]2017-02-20 18:33:00 Test Item Value Reference Range Interpretation Comments Glucose Lvl (test code = Glucose Lvl) 128 70-99 [facility]2017-02-20 18:33:00 Test Item Value Reference Range Interpretation Comments Creatinine Lvl (test code = Creatinine 0.74 0.50-1.40 Lvl) [facility]2017-02-20 18:33:00 Test Item Value Reference Range Interpretation Comments Potassium Lvl (test code = Potassium 5.0 3.5-5.1 Lvl) [facility]2017-02-20 18:33:00 Test Item Value Reference Range Interpretation Comments Sodium Lvl (test code = Sodium Lvl) 136 135-145 [facility]2017-02-20 18:33:00 Test Item Value Reference Range Interpretation Comments Total Protein (test code = Total 7.7 6.4-8.4 Protein) [facility]2017-02-20 18:33:00 Test Item Value Reference Range Interpretation Comments Calcium Lvl (test code = Calcium Lvl) 8.7 8.5-10.5 [facility]2017-02-20 18:33:00 Test Item Value Reference Range Interpretation Comments ALT (test code = ALT) 21 See_Comment [Auto mated message] The system which ge nerated this result transmit neli reference range : <=65. The reference range was not used to interpr et this result as felipe l/abnormal. [facility]2017-02-20 18:33:00 Test Item Value Reference Range Interpretation Comments Albumin Lvl (test code = Albumin Lvl) 3.0 3.5-5.0 [facility]2017-02-20 18:33:00 Test Item Value Reference Range Interpretation Comments AST (test code = AST) 27 See_Comment [Auto mated message] The system which ge nerated this result transmit neli reference range : <=37. The reference range was not used to interpr et this result as felipe l/abnormal. [id number] 18:33:00 Test Item Value Reference Range Interpretation Comments C-REACTIVE PROTEIN (test code = 44.4 C-REACTIVE PROTEIN) [facility] H[id number] 14:38:00 Test Item Value Reference Range Interpretation Comments Hep C Ab (test code = Negative *NA*(08/03/15 Hep C Ab) 9:38 AM) [facility]2016-06-23 14:38:00 Test Item Value Reference Range Interpretation Comments eGFR (test code = eGFR) 79 [facility]2016-06-23 14:38:00 Test Item Value Reference Range Interpretation Comments Sodium Lvl (test code = Sodium Lvl) 144 135-145 [facility]2016-06-23 14:38:00 Test Item Value Reference Range Interpretation Comments Chloride Lvl (test code = Chloride Lvl) 104 95-109 [facility]2016-06-23 14:38:00 Test Item Value Reference Range Interpretation Comments Potassium Lvl (test code = Potassium 4.6 3.5-5.1 Lvl) [facility]2016-06-23 14:38:00 Test Item Value Reference Range Interpretation Comments Calcium Lvl (test code = Calcium Lvl) 9.4 8.5-10.5 [facility]2016-06-23 14:38:00 Test Item Value Reference Range Interpretation Comments CO2 (test code = CO2) 31 24-32 [facility]2016-06-23 14:38:00 Test Item Value Reference Range Interpretation Comments Glucose Lvl (test code = Glucose Lvl) 126 70-99 [facility]2016-06-23 14:38:00 Test Item Value Reference Range Interpretation Comments Creatinine Lvl (test code = Creatinine 0.84 0.50-1.40 Lvl) [facility]2016-06-23 14:38:00 Test Item Value Reference Range Interpretation Comments BUN (test code = BUN) 17 7-22 [facility]2016-06-23 14:38:00 Test Item Value Reference Range Interpretation Comments AGAP (test code = AGAP) 13.6 10.0-20.0 [facility]HLUZLUEKSX8228-64-81 14:38:00 Test Item Value Reference Range Interpretation Comments MCH (test code = MCH) 28.8 pg 27.0-31.0 [facility] HospitalLswxudgQUZZCDVWYP7978-72-39 14:38:00 Test Item Value Reference Range Interpretation Comments Hgb (test code = Hgb) 12.1 12.0-16.0 [facility] HospitalZbeckalMAEMQGEUFW0378-78-44 14:38:00 Test Item Value Reference Range Interpretation Comments RBC (test code = RBC) 4.20 4.20-5.40 [place] [id number] 14:38:00 Test Item Value Reference Range Interpretation Comments MCV (test code = MCV) 89.2 80.0-98.0 [facility] HospitalIavikqaQRGWHPCXRT9211-75-59 14:38:00 Test Item Value Reference Range Interpretation Comments Hct (test code = Hct) 37.5 36.0-48.0 [facility] HospitalHqavntiMLPMGJKETX1421-62-92 14:38:00 Test Item Value Reference Range Interpretation Comments WBC (test code = WBC) 7.4 3.7-10.4 [facility] HospitalSglvmfpGZFPRTWROF2490-16-98 14:38:00 Test Item Value Reference Range Interpretation Comments MCHC (test code = MCHC) 32.3 32.0-36.0 [facility] HospitalLxajmfyNFNMWOKPFD6980-31-88 14:38:00 Test Item Value Reference Range Interpretation Comments RDW (test code = RDW) 14.3 11.5-14.5 [facility] HospitalXjbudfxXQIBZLSFDK0939-44-42 14:38:00 Test Item Value Reference Range Interpretation Comments MPV (test code = MPV) 9.3 7.4-10.4 [facility] HospitalGlkgndrZLCPAGNJAY9481-02-94 14:38:00 Test Item Value Reference Range Interpretation Comments Platelet (test code = Platelet) 193 133-450 [facility] HospitalRdbekugISEHKUUSXL2022-87-54 14:38:00 Test Item Value Reference Range Interpretation Comments Basophils # (test code 0.0 See_Comment [Aut omated message] The = Basophils #) system which generated this result tra nsmitted reference range : <=0.2. The reference r lv was not used to int erpret this result as normal/abnormal . [facility] HospitalXzrsdzyQKYJDNMMIR9363-07-30 14:38:00 Test Item Value Reference Range Interpretation Comments Segs (test code = Segs) 61.4 45.0-75.0 [facility] HospitalWtyyqidNGLCPWJEIR7948-41-32 14:38:00 Test Item Value Reference Range Interpretation Comments Lymphocytes (test code = Lymphocytes) 30.9 20.0-40.0 [facility] HospitalCbqbrfdQBVHLKWCJS6773-07-69 14:38:00 Test Item Value Reference Range Interpretation Comments Lymphocytes # (test code = Lymphocytes 2.3 1.0-5.5 #) [facility] HospitalQrfoxanSVLRQPRDYK4368-13-28 14:38:00 Test Item Value Reference Range Interpretation Comments Monocytes # (test code 0.4 See_Comment [Aut omated message] The = Monocytes #) system which generated this result tra nsmitted reference range : <=0.8. The reference r lv was not used to int erpret this result as normal/abnormal . [facility] HospitalUvoawnxFBFVYSSGFP9678-84-96 14:38:00 Test Item Value Reference Range Interpretation Comments Segs-Bands # (test code = Segs-Bands #) 4.5 1.5-8.1 [facility] HospitalCoccnngHVIBVJNLIB0323-89-12 14:38:00 Test Item Value Reference Range Interpretation Comments Basophils (test code = 0.5 See_Comment [Aut omated message] The Basophils) system which ge nerated this result tra nsmitted reference range : <=1.0. The reference r lv was not used to int erpret this result as normal/abnormal . [facility] HospitalVlcccrcLXNOOXERNH5257-84-21 14:38:00 Test Item Value Reference Range Interpretation Comments Monocytes (test code = Monocytes) 5.8 2.0-12.0 [facility] HospitalPopwidlKTDASAJJFI4152-60-47 14:38:00 Test Item Value Reference Range Interpretation Comments Eosinophils (test code = 1.4 See_Comment [A utomated message] The Eosinophils) system which ge nerated this result tra nsmitted reference range : <=4.0. The reference r lv was not used to int erpret this result as normal/abnormal . [facility] HospitalYekjnblZWKBSGOUOC5828-95-31 14:38:00 Test Item Value Reference Range Interpretation Comments Eosinophils # (test code 0.1 See_Comment [A utomated message] The = Eosinophils #) system whic h generated this result tra nsmitted reference range : <=0.5. The reference r lv was not used to int erpret this result as normal/abnormal . [facility]WpavetzTDRVGOAEZB3080-48-41 14:38:00 Test Item Value Reference Range Interpretation Comments HIV 1/2 Ab (test code Negative *NA*(08/03/15 = HIV 1/2 Ab) 9:38 AM) [facility] AustinPmlzimuWIOSYHYNYI7685-36-16 14:38:00 Test Item Value Reference Range Interpretation Comments Hep C Ab (test code = Negative *NA*(08/03/15 Hep C Ab) 9:38 AM) [facility]2016-06-23 14:38:00 Test Item Value Reference Range Interpretation Comments eGFR (test code = eGFR) 79 [facility]2016-06-23 14:38:00 Test Item Value Reference Range Interpretation Comments Sodium Lvl (test code = Sodium Lvl) 144 135-145 [facility]2016-06-23 14:38:00 Test Item Value Reference Range Interpretation Comments Chloride Lvl (test code = Chloride Lvl) 104 95-109 [facility]2016-06-23 14:38:00 Test Item Value Reference Range Interpretation Comments Potassium Lvl (test code = Potassium 4.6 3.5-5.1 Lvl) [facility]2016-06-23 14:38:00 Test Item Value Reference Range Interpretation Comments Calcium Lvl (test code = Calcium Lvl) 9.4 8.5-10.5 [facility]2016-06-23 14:38:00 Test Item Value Reference Range Interpretation Comments CO2 (test code = CO2) 31 24-32 [facility]2016-06-23 14:38:00 Test Item Value Reference Range Interpretation Comments Glucose Lvl (test code = Glucose Lvl) 126 70-99 [facility]2016-06-23 14:38:00 Test Item Value Reference Range Interpretation Comments Creatinine Lvl (test code = Creatinine 0.84 0.50-1.40 Lvl) [facility]2016-06-23 14:38:00 Test Item Value Reference Range Interpretation Comments BUN (test code = BUN) 17 7-22 [facility]2016-06-23 14:38:00 Test Item Value Reference Range Interpretation Comments AGAP (test code = AGAP) 13.6 10.0-20.0 [facility]gdurbdOFMTXMSBPN4304-84-30 14:38:00 Test Item Value Reference Range Interpretation Comments MCH (test code = MCH) 28.8 pg 27.0-31.0 [facility] HospitalRescblqKAOWXMWCWT1545-42-45 14:38:00 Test Item Value Reference Range Interpretation Comments Hgb (test code = Hgb) 12.1 12.0-16.0 [facility] HospitalTxqaafiOQFKYSUFRU1222-15-14 14:38:00 Test Item Value Reference Range Interpretation Comments RBC (test code = RBC) 4.20 4.20-5.40 [facility] HospitalOiourdnJDOGJRWHTS4984-34-67 14:38:00 Test Item Value Reference Range Interpretation Comments MCV (test code = MCV) 89.2 80.0-98.0 [facility] HospitalDzjjvjzSREVOWGCZU2968-53-95 14:38:00 Test Item Value Reference Range Interpretation Comments Hct (test code = Hct) 37.5 36.0-48.0 [facility] HospitalBynmuyfRSJODJZHUT2209-95-78 14:38:00 Test Item Value Reference Range Interpretation Comments WBC (test code = WBC) 7.4 3.7-10.4 [facility] HospitalRosdvsoOGCSNYGFSM3690-92-50 14:38:00 Test Item Value Reference Range Interpretation Comments MCHC (test code = MCHC) 32.3 32.0-36.0 [facility] HospitalPhxjpfrDFIPDOKGCX9623-86-30 14:38:00 Test Item Value Reference Range Interpretation Comments RDW (test code = RDW) 14.3 11.5-14.5 [facility] HospitalLyxfuuqQUJDWULDNA2522-91-57 14:38:00 Test Item Value Reference Range Interpretation Comments MPV (test code = MPV) 9.3 7.4-10.4 [facility] HospitalZsnadspPBJTSNRNTU6363-68-11 14:38:00 Test Item Value Reference Range Interpretation Comments Platelet (test code = Platelet) 193 133-450 [facility] HospitalBvqonsvLIODUTXNJP8216-31-21 14:38:00 Test Item Value Reference Range Interpretation Comments Basophils # (test code 0.0 See_Comment [Aut omated message] The = Basophils #) system which generated this result tra nsmitted reference range : <=0.2. The reference r lv was not used to int erpret this result as normal/abnormal . [facility] HospitalFufaptjPERAYXVCXH3101-15-81 14:38:00 Test Item Value Reference Range Interpretation Comments Segs (test code = Segs) 61.4 45.0-75.0 [facility] HospitalZkslrpoKFVQQUWOAK7151-09-81 14:38:00 Test Item Value Reference Range Interpretation Comments Lymphocytes (test code = Lymphocytes) 30.9 20.0-40.0 [facility] HospitalHnuytobVHLHOFZTQO3060-12-48 14:38:00 Test Item Value Reference Range Interpretation Comments Lymphocytes # (test code = Lymphocytes 2.3 1.0-5.5 #) [facility] HospitalThocdobPLLQRAKFRY1092-21-42 14:38:00 Test Item Value Reference Range Interpretation Comments Monocytes # (test code 0.4 See_Comment [Aut omated message] The = Monocytes #) system which generated this result tra nsmitted reference range : <=0.8. The reference r lv was not used to int erpret this result as normal/abnormal . [facility] HospitalAgwyzqtXOTWLIRSTQ6624-36-60 14:38:00 Test Item Value Reference Range Interpretation Comments Segs-Bands # (test code = Segs-Bands #) 4.5 1.5-8.1 [facility] HospitalIymyfgyHLZSYEOJNE8695-37-49 14:38:00 Test Item Value Reference Range Interpretation Comments Basophils (test code = 0.5 See_Comment [Aut omated message] The Basophils) system which ge nerated this result tra nsmitted reference range : <=1.0. The reference r lv was not used to int erpret this result as normal/abnormal . [facility] HospitalZyqggvuJMCXWBLPEL2111-68-05 14:38:00 Test Item Value Reference Range Interpretation Comments Monocytes (test code = Monocytes) 5.8 2.0-12.0 [facility] HospitalTakzwbaYSUZUSWNTN7096-63-50 14:38:00 Test Item Value Reference Range Interpretation Comments Eosinophils (test code = 1.4 See_Comment [A utomated message] The Eosinophils) system which ge nerated this result tra nsmitted reference range : <=4.0. The reference r lv was not used to int erpret this result as normal/abnormal . [facility] HospitalMtxamjeLEJJIJINBX8743-34-90 14:38:00 Test Item Value Reference Range Interpretation Comments Eosinophils # (test code 0.1 See_Comment [A utomated message] The = Eosinophils #) system whic h generated this result tra nsmitted reference range : <=0.5. The reference r lv was not used to int erpret this result as normal/abnormal . [facility] HospitalYehbmcjLKIKPIISHN2285-21-53 14:38:00 Test Item Value Reference Range Interpretation Comments HIV 1/2 Ab (test code Negative *NA*(08/03/15 = HIV 1/2 Ab) 9:38 AM) [facility] HospitalGdswzlvMIBPAJAVGN9434-57-18 14:38:00 Test Item Value Reference Range Interpretation Comments Hep C Ab (test code = Negative *NA*(08/03/15 Hep C Ab) 9:38 AM) [facility]2016-06-23 14:38:00 Test Item Value Reference Range Interpretation Comments eGFR (test code = eGFR) 79 [facility]2016-06-23 14:38:00 Test Item Value Reference Range Interpretation Comments Sodium Lvl (test code = Sodium Lvl) 144 135-145 [facility]2016-06-23 14:38:00 Test Item Value Reference Range Interpretation Comments Chloride Lvl (test code = Chloride Lvl) 104 95-109 [facility]2016-06-23 14:38:00 Test Item Value Reference Range Interpretation Comments Potassium Lvl (test code = Potassium 4.6 3.5-5.1 Lvl) [facility]2016-06-23 14:38:00 Test Item Value Reference Range Interpretation Comments Calcium Lvl (test code = Calcium Lvl) 9.4 8.5-10.5 [facility]2016-06-23 14:38:00 Test Item Value Reference Range Interpretation Comments CO2 (test code = CO2) 31 24-32 [facility]2016-06-23 14:38:00 Test Item Value Reference Range Interpretation Comments Glucose Lvl (test code = Glucose Lvl) 126 70-99 [facility]2016-06-23 14:38:00 Test Item Value Reference Range Interpretation Comments Creatinine Lvl (test code = Creatinine 0.84 0.50-1.40 Lvl) [facility]2016-06-23 14:38:00 Test Item Value Reference Range Interpretation Comments BUN (test code = BUN) 17 7-22 [facility]2016-06-23 14:38:00 Test Item Value Reference Range Interpretation Comments AGAP (test code = AGAP) 13.6 10.0-20.0 [facility] HospitalIzdskdvBDPNXNMNGP4462-86-99 14:38:00 Test Item Value Reference Range Interpretation Comments MCH (test code = MCH) 28.8 pg 27.0-31.0 [facility] HospitalBbesqwmMTVCFJUDSN8390-56-06 14:38:00 Test Item Value Reference Range Interpretation Comments Hgb (test code = Hgb) 12.1 12.0-16.0 [facility] HospitalDdovqlrHFJIOXCPEP8546-81-73 14:38:00 Test Item Value Reference Range Interpretation Comments RBC (test code = RBC) 4.20 4.20-5.40 [facility] HospitalTggfjlpMGQCKVPZJV5609-05-36 14:38:00 Test Item Value Reference Range Interpretation Comments MCV (test code = MCV) 89.2 80.0-98.0 [facility] HospitalGppbsmiKEMNJBYJMM0178-03-47 14:38:00 Test Item Value Reference Range Interpretation Comments Hct (test code = Hct) 37.5 36.0-48.0 [facility] HospitalDpkjyerBERQJVAUSN9322-46-68 14:38:00 Test Item Value Reference Range Interpretation Comments WBC (test code = WBC) 7.4 3.7-10.4 [facility] HospitalZfvtpuvTELHUMMYGA1150-00-01 14:38:00 Test Item Value Reference Range Interpretation Comments MCHC (test code = MCHC) 32.3 32.0-36.0 [facility] HospitalEnkvnloPWKDOYNNMN9944-51-26 14:38:00 Test Item Value Reference Range Interpretation Comments RDW (test code = RDW) 14.3 11.5-14.5 [facility] HospitalMcqlpabGESIAUEPLC9068-32-82 14:38:00 Test Item Value Reference Range Interpretation Comments MPV (test code = MPV) 9.3 7.4-10.4 [facility] HospitalZjaidfhXNZXMOMDZC7137-94-94 14:38:00 Test Item Value Reference Range Interpretation Comments Platelet (test code = Platelet) 193 133-450 [facility] HospitalIxhoxmePFEQJTKION4238-18-17 14:38:00 Test Item Value Reference Range Interpretation Comments Basophils # (test code 0.0 See_Comment [Aut omated message] The = Basophils #) system which generated this result tra nsmitted reference range : <=0.2. The reference r lv was not used to int erpret this result as normal/abnormal . [facility] HospitalBehrjqtTXRNNEATZH8482-49-71 14:38:00 Test Item Value Reference Range Interpretation Comments Segs (test code = Segs) 61.4 45.0-75.0 [facility] HospitalRijptnfXAPBJHEGDC3476-19-79 14:38:00 Test Item Value Reference Range Interpretation Comments Lymphocytes (test code = Lymphocytes) 30.9 20.0-40.0 [facility] HospitalTkklofvNWYNUHOWKZ0888-41-90 14:38:00 Test Item Value Reference Range Interpretation Comments Lymphocytes # (test code = Lymphocytes 2.3 1.0-5.5 #) [facility] HospitalQyfhlolGGYTBKFAOI4448-11-25 14:38:00 Test Item Value Reference Range Interpretation Comments Monocytes # (test code 0.4 See_Comment [Aut omated message] The = Monocytes #) system which generated this result tra nsmitted reference range : <=0.8. The reference r lv was not used to int erpret this result as normal/abnormal . [facility] HospitalVdhpuwlKPKERGZYXG5894-54-00 14:38:00 Test Item Value Reference Range Interpretation Comments Segs-Bands # (test code = Segs-Bands #) 4.5 1.5-8.1 [facility] HospitalHiacxinSDNGMQJHYX0967-37-06 14:38:00 Test Item Value Reference Range Interpretation Comments Basophils (test code = 0.5 See_Comment [Aut omated message] The Basophils) system which ge nerated this result tra nsmitted reference range : <=1.0. The reference r lv was not used to int erpret this result as normal/abnormal . [facility] HospitalOavpzdzXKQMUMOUIE9004-02-48 14:38:00 Test Item Value Reference Range Interpretation Comments Monocytes (test code = Monocytes) 5.8 2.0-12.0 [facility] HospitalIxnmqqgSGRUHLFKMI1747-01-10 14:38:00 Test Item Value Reference Range Interpretation Comments Eosinophils (test code = 1.4 See_Comment [A utomated message] The Eosinophils) system which ge nerated this result tra nsmitted reference range : <=4.0. The reference r lv was not used to int erpret this result as normal/abnormal . [facility] HospitalHxrswggLMBUSDMLOC0894-25-80 14:38:00 Test Item Value Reference Range Interpretation Comments Eosinophils # (test code 0.1 See_Comment [A utomated message] The = Eosinophils #) system whic h generated this result tra nsmitted reference range : <=0.5. The reference r lv was not used to int erpret this result as normal/abnormal . [facility] HospitalHxjotroFZPBJSRNGB5949-51-63 14:38:00 Test Item Value Reference Range Interpretation Comments HIV 1/2 Ab (test code Negative *NA*(08/03/15 = HIV 1/2 Ab) 9:38 AM) [facility] HospitalCcyzdgfWQRWNAYGZY5812-27-60 14:38:00 Test Item Value Reference Range Interpretation Comments Hep C Ab (test code = Negative *NA*(08/03/15 Hep C Ab) 9:38 AM) [facility]2016-06-23 14:38:00 Test Item Value Reference Range Interpretation Comments eGFR (test code = eGFR) 79 [facility]2016-06-23 14:38:00 Test Item Value Reference Range Interpretation Comments Sodium Lvl (test code = Sodium Lvl) 144 135-145 [facility]2016-06-23 14:38:00 Test Item Value Reference Range Interpretation Comments Chloride Lvl (test code = Chloride Lvl) 104 95-109 [facility]2016-06-23 14:38:00 Test Item Value Reference Range Interpretation Comments Potassium Lvl (test code = Potassium 4.6 3.5-5.1 Lvl) [facility]2016-06-23 14:38:00 Test Item Value Reference Range Interpretation Comments Calcium Lvl (test code = Calcium Lvl) 9.4 8.5-10.5 [facility]2016-06-23 14:38:00 Test Item Value Reference Range Interpretation Comments CO2 (test code = CO2) 31 24-32 [facility]2016-06-23 14:38:00 Test Item Value Reference Range Interpretation Comments Glucose Lvl (test code = Glucose Lvl) 126 70-99 [facility]2016-06-23 14:38:00 Test Item Value Reference Range Interpretation Comments Creatinine Lvl (test code = Creatinine 0.84 0.50-1.40 Lvl) [facility]2016-06-23 14:38:00 Test Item Value Reference Range Interpretation Comments BUN (test code = BUN) 17 7-22 [facility]2016-06-23 14:38:00 Test Item Value Reference Range Interpretation Comments AGAP (test code = AGAP) 13.6 10.0-20.0 [facility] HospitalUxilqisYRDXMLKRNJ6429-61-55 14:38:00 Test Item Value Reference Range Interpretation Comments MCH (test code = MCH) 28.8 pg 27.0-31.0 [facility] HospitalDijxeirIOKEHWROHD3189-62-29 14:38:00 Test Item Value Reference Range Interpretation Comments Hgb (test code = Hgb) 12.1 12.0-16.0 [facility] HospitalMlsygrsMQKNIKJBAF7653-58-32 14:38:00 Test Item Value Reference Range Interpretation Comments RBC (test code = RBC) 4.20 4.20-5.40 [facility] HospitalUqhdabmTCBVHLGFID5782-62-57 14:38:00 Test Item Value Reference Range Interpretation Comments MCV (test code = MCV) 89.2 80.0-98.0 [facility] HospitalVvhkkksSVKLXPXABZ3117-17-95 14:38:00 Test Item Value Reference Range Interpretation Comments Hct (test code = Hct) 37.5 36.0-48.0 [facility] HospitalRmcxiaeTJIXBUDYQQ7025-27-91 14:38:00 Test Item Value Reference Range Interpretation Comments WBC (test code = WBC) 7.4 3.7-10.4 [facility] HospitalUnnbhpyLCSPCDLKNY2719-01-05 14:38:00 Test Item Value Reference Range Interpretation Comments MCHC (test code = MCHC) 32.3 32.0-36.0 [facility] HospitalPvlzoqjXDCAHSJBWD3845-44-28 14:38:00 Test Item Value Reference Range Interpretation Comments RDW (test code = RDW) 14.3 11.5-14.5 [facility] HospitalWfsofzlHMNILEVLPA8835-37-68 14:38:00 Test Item Value Reference Range Interpretation Comments MPV (test code = MPV) 9.3 7.4-10.4 [facility] HospitalXlqokjuIMGDMNWIPW3736-02-82 14:38:00 Test Item Value Reference Range Interpretation Comments Platelet (test code = Platelet) 193 133-450 [facility] HospitalTrvnlrsLGBXLZJLLZ6767-41-70 14:38:00 Test Item Value Reference Range Interpretation Comments Basophils # (test code 0.0 See_Comment [Aut omated message] The = Basophils #) system which generated this result tra nsmitted reference range : <=0.2. The reference r lv was not used to int erpret this result as normal/abnormal . [facility] HospitalMxshddcIHMLCAHQNP5075-24-54 14:38:00 Test Item Value Reference Range Interpretation Comments Segs (test code = Segs) 61.4 45.0-75.0 [facility] HospitalUfxdebdGFIOPTEKQE1471-19-08 14:38:00 Test Item Value Reference Range Interpretation Comments Lymphocytes (test code = Lymphocytes) 30.9 20.0-40.0 [facility] HospitalVpxalrpLWDPYZTYFI6058-56-37 14:38:00 Test Item Value Reference Range Interpretation Comments Lymphocytes # (test code = Lymphocytes 2.3 1.0-5.5 #) [facility] HospitalZusqxlqMPLFWAHALS3236-18-10 14:38:00 Test Item Value Reference Range Interpretation Comments Monocytes # (test code 0.4 See_Comment [Aut omated message] The = Monocytes #) system which generated this result tra nsmitted reference range : <=0.8. The reference r lv was not used to int erpret this result as normal/abnormal . [facility]2016-06-23 14:38:00 Test Item Value Reference Range Interpretation Comments eGFR (test code = eGFR) 79 [facility]2016-06-23 14:38:00 Test Item Value Reference Range Interpretation Comments Sodium Lvl (test code = Sodium Lvl) 144 135-145 [facility]2016-06-23 14:38:00 Test Item Value Reference Range Interpretation Comments Chloride Lvl (test code = Chloride Lvl) 104 95-109 [facility]2016-06-23 14:38:00 Test Item Value Reference Range Interpretation Comments Potassium Lvl (test code = Potassium 4.6 3.5-5.1 Lvl) [facility]2016-06-23 14:38:00 Test Item Value Reference Range Interpretation Comments Calcium Lvl (test code = Calcium Lvl) 9.4 8.5-10.5 [facility]2016-06-23 14:38:00 Test Item Value Reference Range Interpretation Comments CO2 (test code = CO2) 31 24-32 [facility]2016-06-23 14:38:00 Test Item Value Reference Range Interpretation Comments Glucose Lvl (test code = Glucose Lvl) 126 70-99 [facility]2016-06-23 14:38:00 Test Item Value Reference Range Interpretation Comments Creatinine Lvl (test code = Creatinine 0.84 0.50-1.40 Lvl) [facility]2016-06-23 14:38:00 Test Item Value Reference Range Interpretation Comments BUN (test code = BUN) 17 7-22 [facility]2016-06-23 14:38:00 Test Item Value Reference Range Interpretation Comments AGAP (test code = AGAP) 13.6 10.0-20.0 [facility] HospitalOhikyuhQLOPOMEUCW1654-34-15 14:38:00 Test Item Value Reference Range Interpretation Comments MCH (test code = MCH) 28.8 pg 27.0-31.0 [facility] HospitalIdlcaysVZYBXOLUMD2869-76-24 14:38:00 Test Item Value Reference Range Interpretation Comments Hgb (test code = Hgb) 12.1 12.0-16.0 [facility] HospitalHycxbraOCOBDUDFQJ8065-06-62 14:38:00 Test Item Value Reference Range Interpretation Comments RBC (test code = RBC) 4.20 4.20-5.40 [facility] HospitalIqklpbeNEMYKESPHF3811-51-84 14:38:00 Test Item Value Reference Range Interpretation Comments MCV (test code = MCV) 89.2 80.0-98.0 [facility] HospitalExcpdthSRYDAJPCQO3168-08-36 14:38:00 Test Item Value Reference Range Interpretation Comments Hct (test code = Hct) 37.5 36.0-48.0 [facility] HospitalThpsxqeZQRCBEGOXR9931-98-18 14:38:00 Test Item Value Reference Range Interpretation Comments WBC (test code = WBC) 7.4 3.7-10.4 [facility] HospitalJpxzqvqVSQQFQSODZ2029-78-22 14:38:00 Test Item Value Reference Range Interpretation Comments MCHC (test code = MCHC) 32.3 32.0-36.0 [facility] HospitalAjzokutMAOSEYGVZJ2576-35-36 14:38:00 Test Item Value Reference Range Interpretation Comments RDW (test code = RDW) 14.3 11.5-14.5 [facility] HospitalWrotjdrTRIDVGQRLF4774-98-69 14:38:00 Test Item Value Reference Range Interpretation Comments MPV (test code = MPV) 9.3 7.4-10.4 [facility] HospitalGhyccfwWUKZCJAVTR2336-97-76 14:38:00 Test Item Value Reference Range Interpretation Comments Platelet (test code = Platelet) 193 133-450 [facility] HospitalNzndjdaZGADHPYTKO0896-03-81 14:38:00 Test Item Value Reference Range Interpretation Comments Basophils # (test code 0.0 See_Comment [Aut omated message] The = Basophils #) system which generated this result tra nsmitted reference range : <=0.2. The reference r lv was not used to int erpret this result as normal/abnormal . [facility] HospitalFniqaulHWQPBOOBGO0080-79-09 14:38:00 Test Item Value Reference Range Interpretation Comments Segs (test code = Segs) 61.4 45.0-75.0 [facility] HospitalTvzlsevLBWEAQVFOW7420-90-50 14:38:00 Test Item Value Reference Range Interpretation Comments Lymphocytes (test code = Lymphocytes) 30.9 20.0-40.0 [facility] HospitalJpddedkIHBXHJANML3785-87-06 14:38:00 Test Item Value Reference Range Interpretation Comments Lymphocytes # (test code = Lymphocytes 2.3 1.0-5.5 #) [facility] HospitalCnmiujcANWGTQSTOT7868-16-82 14:38:00 Test Item Value Reference Range Interpretation Comments Monocytes # (test code 0.4 See_Comment [Aut omated message] The = Monocytes #) system which generated this result tra nsmitted reference range : <=0.8. The reference r lv was not used to int erpret this result as normal/abnormal . [facility] HospitalOsakytdAGLNWTXPMD3067-69-25 14:38:00 Test Item Value Reference Range Interpretation Comments Segs-Bands # (test code = Segs-Bands #) 4.5 1.5-8.1 [facility] HospitalPwebnpkXVMSLYMMBB6798-30-82 14:38:00 Test Item Value Reference Range Interpretation Comments Basophils (test code = 0.5 See_Comment [Aut omated message] The Basophils) system which ge nerated this result tra nsmitted reference range : <=1.0. The reference r lv was not used to int erpret this result as normal/abnormal . [facility] HospitalVsubwokEZQRJZEJOV5937-11-44 14:38:00 Test Item Value Reference Range Interpretation Comments Monocytes (test code = Monocytes) 5.8 2.0-12.0 [facility] HospitalGfhuiexBAJPWMQHTY1788-35-38 14:38:00 Test Item Value Reference Range Interpretation Comments Eosinophils (test code = 1.4 See_Comment [A utomated message] The Eosinophils) system which ge nerated this result tra nsmitted reference range : <=4.0. The reference r lv was not used to int erpret this result as normal/abnormal . [facility] HospitalVpnadziPVJJGKQJSN7879-75-58 14:38:00 Test Item Value Reference Range Interpretation Comments Eosinophils # (test code 0.1 See_Comment [A utomated message] The = Eosinophils #) system whic h generated this result tra nsmitted reference range : <=0.5. The reference r lv was not used to int erpret this result as normal/abnormal . [facility] HospitalMpdekunMHIZJYZXTM3997-96-68 14:38:00 Test Item Value Reference Range Interpretation Comments HIV 1/2 Ab (test code Negative *NA*(08/03/15 = HIV 1/2 Ab) 9:38 AM) [facility] HospitalIxfoblyQQAOFXFWRP1925-81-90 14:38:00 Test Item Value Reference Range Interpretation Comments Hep C Ab (test code = Negative *NA*(08/03/15 Hep C Ab) 9:38 AM) [facility] HospitalNvtydohLPRQRLDGPQ2417-69-13 14:38:00 Test Item Value Reference Range Interpretation Comments Segs-Bands # (test code = Segs-Bands #) 4.5 1.5-8.1 [facility]wrERXJOTZYWS5905-25-91 14:38:00 Test Item Value Reference Range Interpretation Comments Basophils (test code = 0.5 See_Comment [Aut omated message] The Basophils) system which ge nerated this result tra nsmitted reference range : <=1.0. The reference r lv was not used to int erpret this result as normal/abnormal . [facility]YxhhzrcZKRBPGEEZU8398-40-26 14:38:00 Test Item Value Reference Range Interpretation Comments Monocytes (test code = Monocytes) 5.8 2.0-12.0 [facility]HwxdskfIUMJFSENOK4897-05-94 14:38:00 Test Item Value Reference Range Interpretation Comments Eosinophils (test code = 1.4 See_Comment [A utomated message] The Eosinophils) system which ge nerated this result tra nsmitted reference range : <=4.0. The reference r lv was not used to int erpret this result as normal/abnormal . [facility]LmplosrKMZLMOODBQ5778-49-38 14:38:00 Test Item Value Reference Range Interpretation Comments Eosinophils # (test code 0.1 See_Comment [A utomated message] The = Eosinophils #) system whic h generated this result tra nsmitted reference range : <=0.5. The reference r lv was not used to int erpret this result as normal/abnormal . [facility]Y9534-42-49 14:38:00 Test Item Value Reference Range Interpretation Comments HIV 1/2 Ab (test code Negative *NA*(08/03/15 = HIV 1/2 Ab) 9:38 AM) [place] [id number] 14:38:00 Test Item Value Reference Range Interpretation Comments Hep C Ab (test code = Negative *NA*(08/03/15 Hep C Ab) 9:38 AM) [facility]2016-06-23 14:38:00 Test Item Value Reference Range Interpretation Comments eGFR (test code = eGFR) 79 [facility]2016-06-23 14:38:00 Test Item Value Reference Range Interpretation Comments Sodium Lvl (test code = Sodium Lvl) 144 135-145 [facility]2016-06-23 14:38:00 Test Item Value Reference Range Interpretation Comments Chloride Lvl (test code = Chloride Lvl) 104 95-109 [facility]2016-06-23 14:38:00 Test Item Value Reference Range Interpretation Comments Potassium Lvl (test code = Potassium 4.6 3.5-5.1 Lvl) [facility]2016-06-23 14:38:00 Test Item Value Reference Range Interpretation Comments Calcium Lvl (test code = Calcium Lvl) 9.4 8.5-10.5 [facility]2016-06-23 14:38:00 Test Item Value Reference Range Interpretation Comments CO2 (test code = CO2) 31 24-32 [facility]2016-06-23 14:38:00 Test Item Value Reference Range Interpretation Comments Glucose Lvl (test code = Glucose Lvl) 126 70-99 [facility]2016-06-23 14:38:00 Test Item Value Reference Range Interpretation Comments Creatinine Lvl (test code = Creatinine 0.84 0.50-1.40 Lvl) [facility]2016-06-23 14:38:00 Test Item Value Reference Range Interpretation Comments BUN (test code = BUN) 17 7-22 [facility]2016-06-23 14:38:00 Test Item Value Reference Range Interpretation Comments AGAP (test code = AGAP) 13.6 10.0-20.0 [facility] HospitalAxurpdxTNVTULBGLH2566-58-34 14:38:00 Test Item Value Reference Range Interpretation Comments MCH (test code = MCH) 28.8 pg 27.0-31.0 [facility] HospitalZyzzjctTGWNXBIPNK8690-43-63 14:38:00 Test Item Value Reference Range Interpretation Comments Hgb (test code = Hgb) 12.1 12.0-16.0 [facility] HospitalIcmekrzTSTFUALICK6545-64-72 14:38:00 Test Item Value Reference Range Interpretation Comments RBC (test code = RBC) 4.20 4.20-5.40 [facility] HospitalHolqllnJWLOQUOAGC2774-77-19 14:38:00 Test Item Value Reference Range Interpretation Comments MCV (test code = MCV) 89.2 80.0-98.0 [facility] HospitalLagyxkeSBBNJUNEVD2159-37-47 14:38:00 Test Item Value Reference Range Interpretation Comments Hct (test code = Hct) 37.5 36.0-48.0 [facility] HospitalGjphwrwGUXYWPIIFB9099-08-07 14:38:00 Test Item Value Reference Range Interpretation Comments WBC (test code = WBC) 7.4 3.7-10.4 [facility] HospitalYrjmnvnYIKKFGPSWZ5973-30-76 14:38:00 Test Item Value Reference Range Interpretation Comments MCHC (test code = MCHC) 32.3 32.0-36.0 [facility] HospitalViottaiLAVCENGTLV4930-70-93 14:38:00 Test Item Value Reference Range Interpretation Comments RDW (test code = RDW) 14.3 11.5-14.5 [facility] HospitalJxeqnrgORDVHCCOYI0093-69-09 14:38:00 Test Item Value Reference Range Interpretation Comments MPV (test code = MPV) 9.3 7.4-10.4 [facility] HospitalOomecaiHCVCITXAJM5030-51-21 14:38:00 Test Item Value Reference Range Interpretation Comments Platelet (test code = Platelet) 193 133-450 [facility] HospitalZucungdTDWXNCELOG6667-43-80 14:38:00 Test Item Value Reference Range Interpretation Comments Basophils # (test code 0.0 See_Comment [Aut omated message] The = Basophils #) system which generated this result tra nsmitted reference range : <=0.2. The reference r lv was not used to int erpret this result as normal/abnormal . [facility] HospitalWzixhckPTZRRXMWGC9068-27-15 14:38:00 Test Item Value Reference Range Interpretation Comments Segs (test code = Segs) 61.4 45.0-75.0 [facility] HospitalVlizjpoTYIXIYKDEA0090-01-57 14:38:00 Test Item Value Reference Range Interpretation Comments Lymphocytes (test code = Lymphocytes) 30.9 20.0-40.0 [facility] HospitalQgfmcljPZQJAJTKZQ4293-39-75 14:38:00 Test Item Value Reference Range Interpretation Comments Lymphocytes # (test code = Lymphocytes 2.3 1.0-5.5 #) [facility] HospitalLdhoaufDYYMNMVJMS7387-26-89 14:38:00 Test Item Value Reference Range Interpretation Comments Monocytes # (test code 0.4 See_Comment [Aut omated message] The = Monocytes #) system which generated this result tra nsmitted reference range : <=0.8. The reference r lv was not used to int erpret this result as normal/abnormal . [facility] HospitalTqrmpzkUKSESEBHIB5598-85-75 14:38:00 Test Item Value Reference Range Interpretation Comments Segs-Bands # (test code = Segs-Bands #) 4.5 1.5-8.1 [facility] HospitalBbokgjnPKGKVAZCGM8923-39-69 14:38:00 Test Item Value Reference Range Interpretation Comments Basophils (test code = 0.5 See_Comment [Aut omated message] The Basophils) system which ge nerated this result tra nsmitted reference range : <=1.0. The reference r lv was not used to int erpret this result as normal/abnormal . [facility] HospitalSaphvdwVWDJFXJAET6683-83-29 14:38:00 Test Item Value Reference Range Interpretation Comments Monocytes (test code = Monocytes) 5.8 2.0-12.0 [facility] HospitalBucaagrXJAPTPWVJM6714-05-05 14:38:00 Test Item Value Reference Range Interpretation Comments Eosinophils (test code = 1.4 See_Comment [A utomated message] The Eosinophils) system which ge nerated this result tra nsmitted reference range : <=4.0. The reference r lv was not used to int erpret this result as normal/abnormal . [facility] HospitalFrugpxsVSIVVREFDK0422-99-93 14:38:00 Test Item Value Reference Range Interpretation Comments Eosinophils # (test code 0.1 See_Comment [A utomated message] The = Eosinophils #) system whic h generated this result tra nsmitted reference range : <=0.5. The reference r lv was not used to int erpret this result as normal/abnormal . [facility]XtamtbzSPURTMZAIK6343-11-11 14:38:00 Test Item Value Reference Range Interpretation Comments HIV 1/2 Ab (test code Negative *NA*(08/03/15 = HIV 1/2 Ab) 9:38 AM) [facility]
[2022-04-09 06:08] LABS: Urine Blood Trace-intact (Negative); Urine Glucose 3+ (Negative); Urine Protein Negative (Negative); Urine pH 6.5 (5.0-7.0)
[2022-04-09 06:14] LABS: Absolute Lymphocytes (CBC) 2.5 K/uL (0.7-4.9); Hematocrit 37.8 % (36.0-45.0); Lymphocytes % 34.6 % (15.3-44.8); MCV 82.4 fL (80-100); MPV 8.9 fL (7.6-11.3); RBC Red Blood Cell Count 4.58 M/uL (3.86-4.86)
[2022-04-09] MEDS ORDERED: LIDOCAINE HCL JELLY 2% 6 ML SYRINGE TOP ONE (06:16)
[2022-04-09 06:17] LABS: Urine Bacteria None Seen /HPF (<20); Urine Mucus Slight /HPF (None Seen); Urine RBC 21-50 /HPF (None Seen)
[2022-04-09 07:05] LABS: Albumin 3.4 g/dL (3.4-5.0); Bilirubin Total 0.3 mg/dL (0.2-1.0); Potassium 4.2 mmol/L (3.5-5.1); Protein, Total 7.6 g/dL (6.4-8.2)
--- NOTE | 2022-04-09 08:03 | RAD REPORT ---
EXAM DESCRIPTION: CT - Abdomen Pelvis W Contrast - 04/09/2022 7:36 am CLINICAL HISTORY: pelvic pain History of vaginal infections. On antibiotics COMPARISON: Abdomen Pelvis W Contrast dated 01/25/2018 TECHNIQUE: Thin cut axial CT imaging of the abdomen and pelvis was performed following intravenous a dministration of 100 Isovue 300. Multiplanar reformats were generated and reviewed. All CT scans are performed using dose optimization technique as appropriate and may include automated exposure control or mA/KV adjustment according to patient size. FINDINGS: Beam hardening artifact at the level of the upper abdomen limits evaluation. No suspicious findings in the lung bases. The liver, spleen, and pancreas show no suspicious findings. Gallbladder and biliary tree are also wi thout suspicious finding. Symmetric renal function is seen with no hydronephrosis or suspicious renal mass. No dilated bowel loops or bowel wall thickening. No free air, free fluid or inflammatory stranding. N o hernia, mass or bulky lymphadenopathy. Urinary bladder is suboptimally distended, which limits eval uation, without focal findings. No suspicious bony findings. IMPRESSION: No acute intra-abdominal process.
--- NOTE | 2022-04-09 08:08 | EDPHYS ---
Physician Documentation [facility] Name: Bob Armstrong Age: 61 yrs Sex: Female : 1960 Arrival Date: 04/09/2022 Time: 05:20 Bed 18 Private MD: ED Physician Osmar Magallon HPI: 04/09 06:08 This 61 yrs old Female presents to ER via Ambulatory with complaints of Vaginal Pain. sp3 06:08 61-year-old female with history of diabetes, anxiety now presents to the ED for chief sp3 complaint external labial/vaginal pain for several days. States that she was recently on steroid treatment primary team and with steroid treatment, she always gets yeast infections for which she was prescribed Diflucan, topical clotrimazole as well as p.o. Flagyl. She started these medications 2 days ago and now states that she has burning sensation on her exterior genitalia as well as dysuria and burning when she urinates. She denies any abdominal pain, pelvic pain, vaginal bleeding, vaginal discharge, rectal bleeding, diarrhea, fever or any other systemic symptoms, or any other aspect on review of systems at this time.. 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 - Social history:: Smoking status: . ROS: 06:10 Constitutional: Negative for fever, chills, and weight loss, Eyes: Negative for injury, sp3 pain, redness, and discharge, ENT: Negative for injury, pain, and discharge, Neck: Negative for injury, pain, and swelling, Cardiovascular: Negative for chest pain, palpitations, and edema, Respiratory: Negative for shortness of breath, cough, wheezing, and pleuritic chest pain, Abdomen/GI: Negative for abdominal pain, nausea, vomiting, diarrhea, and constipation, Back: Negative for injury and pain, MS/Extremity: Negative for injury and deformity, Skin: Negative for injury, rash, and discoloration, Neuro: Negative for headache, weakness, numbness, tingling, and seizure, Psych: Negative for depression, anxiety, suicide ideation, homicidal ideation, and hallucinations, Allergy/Immunology: Negative for hives, rash, and allergies, Endocrine: Negative for neck swelling, polydipsia, polyuria, polyphagia, and marked weight changes. 06:10 All other systems are negative. Exam: 06:10 Constitutional: This is a well developed, well nourished patient who is awake, alert, sp3 and in no acute distress. Head/Face: Normocephalic, atraumatic. Eyes: Pupils equal round and reactive to light, extra-ocular motions intact. Lids and lashes normal. Conjunctiva and sclera are non-icteric and not injected. Cornea within normal limits. Periorbital areas with no swelling, redness, or edema. Neck: Trachea midline, no thyromegaly or masses palpated, and no cervical lymphadenopathy. Supple, full range of motion without nuchal rigidity, or vertebral point tenderness. No Meningismus. Chest/axilla: Normal chest wall appearance and motion. Nontender with no deformity. No lesions are appreciated. Cardiovascular: Regular rate and rhythm with a normal S1 and S2. No gallops, murmurs, or rubs. Normal PMI, no JVD. No pulse deficits. Respiratory: Lungs have equal breath sounds bilaterally, clear to auscultation and percussion. No rales, rhonchi or wheezes noted. No increased work of breathing, no retractions or nasal flaring. Abdomen/GI: Soft, non-tender, with normal bowel sounds. No distension or tympany. No guarding or rebound. No evidence of tenderness throughout. Back: No spinal tenderness. No costovertebral tenderness. Full range of motion. Female : Normal external genitalia. Skin: Warm, dry with normal turgor. Normal color with no rashes, no lesions, and no evidence of cellulitis. MS/ Extremity: Pulses equal, no cyanosis. Neurovascular intact. Full, normal range of motion. Neuro: Awake and alert, GCS 15, oriented to person, place, time, and situation. Cranial nerves II-XII grossly intact. Motor strength 5/5 in all extremities. Sensory grossly intact. Cerebellar exam normal. Normal gait. Psych: Awake, alert, with orientation to person, place and time. Behavior, mood, and affect are within normal limits. 06:10 : External vaginal exam is normal with no rash whatsoever. There is no vaginal bleeding or discharge. Vital Signs: 05:27 BP 135 / 67; Pulse 72; Resp 19; Temp 97.7(O); Pulse Ox 100% on R/A; Weight 98.43 kg; kd3 Height 5 ft. 11 in. (180.34 cm); Pain 10/10; 06:46 BP 149 / 79; Pulse 71; Resp 18 S; Pulse Ox 98% ; aa9 07:07 BP 155 / 81; Pulse 61; Resp 16; Pulse Ox 99% ; ko1 05:27 Body Mass Index 30.27 (98.43 kg, 180.34 cm) kd3 MDM: 05:58 Patient medically screened. sp3 06:13 Data reviewed: vital signs, nurses notes, lab test result(s). ED course: 61-year-old sp3 female with external vaginal labial irritation. She thinks that it may be from the pads that she has to wear secondary to her potential yeast infection for which she is currently being treated with. Stability includes UTI. Possibility is topical steroid cream with her past history of ulcers with using steroids, she declined this option. Topical lidocaine to help with symptoms and assess with laboratory values and urine analysis. Given no rash, I have clinically ruled out herpetic infection or similar STI. 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 Patient is okay with the plan and all questions were answered.. 06:33 ED course: Urinalysis demonstrates RBCs in her urine. Given uncertainty of her exact sp3 diagnosis and these findings, we will obtain CT scan of the abdomen and pelvis with IV contrast to fully evaluate patient. Remainder of laboratory values are unremarkable. This patient will be signed out to Dr. Magallon daytime ER physician who will follow-up on the studies and reevaluate patient for final disposition.. 07:09 Differential diagnosis: kidney stone, uterine fibroids, urinary tract infection, rn vaginosis, vaginitis. Transition of care: Care assumed from Rajiv Travis MD. ED course: Signed out to me by Dr. Travis, his plan is to dc home if blood and CT without acute emergent findings.. 08:06 Counseling: I had a detailed discussion with the patient and/or guardian regarding: the rn historical points, exam findings, and any diagnostic results supporting the discharge/admit diagnosis, lab results, radiology results, the need for outpatient follow up, to return to the emergency department if symptoms worsen or persist or if there are any questions or concerns that arise at home. Special discussion: I discussed with the patient/guardian in detail that at this point there is no indication for admission to the hospital. It is understood, however, that if the symptoms persist or worsen the patient needs to return immediately for re-evaluation. Based on the history and exam findings, there is no indication for further emergent testing or inpatient evaluation. I discussed with the patient/guardian the need to see the OB Gyne specialist for further evaluation of the symptoms. I discussed with the patient/guardian the need to see the primary care provider for further evaluation of the symptoms. 04/09 05:52 Order name: CBC with Diff; Complete Time: 06:32 sp3 04/09 05:52 Order name: CMP; Complete Time: 07:09 sp3 04/09 05:52 Order name: Lipase; Complete Time: 07:09 sp3 04/09 05:52 Order name: Urine Microscopic Only; Complete Time: 06:32 sp3 04/09 06:08 Order name: Urine Dipstick-Ancillary; Complete Time: 06:32 EDMS 04/09 06:33 Order name: CT Abd/Pelvis - IV Contrast Only; Complete Time: 08:06 sp3 04/09 05:52 Order name: IV Saline Lock; Complete Time: 06:37 sp3 04/09 05:52 Order name: Labs collected and sent; Complete Time: 06:08 sp3 04/09 05:52 Order name: Urine Dipstick-Ancillary (obtain specimen); Complete Time: 06:08 sp3 Administered Medications: 06:16 Drug: Lidocaine Gel 2 % 1 application {Note: applied to affected area.} Route: Mucous aa9 Membrane; Disposition Summary: 04/09/22 08:07 Discharge Ordered Location: Home rn Problem: new rn Symptoms: are unchanged rn Condition: Stable rn Diagnosis - Pelvic and perineal pain rn Followup: rn - With: Private Physician - When: As needed - Reason: Recheck today's complaints, Re-evaluation by your physician Discharge Instructions: - Discharge Summary Sheet rn - Pain Without a Known Cause rn - Pelvic Pain, Female rn Forms: - Medication Reconciliation Form rn - Thank You Letter rn - Antibiotic pillowcase turner - Prescription Opioid Use rn Signatures: Dispatcher [employer] Osmar Veliz MD MD rn Patel, Setul, MD MD sp3 Rubi He, RN RN kd3 Jody Reynoso, RN RN aa9 Daisy Salcedo RN RN ko1
--- NOTE | 2022-04-09 08:08 | ER ---
Nurse's Notes [facility] Name: Bob Armstrong Age: 61 yrs Sex: Female : 1960 Arrival Date: 04/09/2022 Time: 05:20 Bed 18 Private MD: Diagnosis: Pelvic and perineal pain Presentation: 04/09 05:27 Chief complaint: Patient states: I have two vaginal infections, yeast and fungal that kd3 were brought on by steroid use. I was diagnosed last [facility] at [facility] [place]. I started antibiotics but I think I am allergic to them because I started to itch from them from head to toe. But I am here because I am hurting very bad on the outside of my vagina. My blood sugar is also not registering on my device. Coronavirus screen: Vaccine status: Patient reports receiving the 1st dose of the Covid vaccine. Ebola Screen: No symptoms or risks identified at this time. Initial Sepsis Screen: Does the patient meet any 2 criteria? No. Patient's initial sepsis screen is negative. Does the patient have a suspected source of infection? No. Patient's initial sepsis screen is negative. Risk Assessment: Do you want to hurt yourself or someone else? Patient reports no desire to harm self or others. Onset of symptoms was April 09, 2022. 05:27 Method Of Arrival: Ambulatory kd3 05:30 Acuity: JERRY 3 kd3 Triage Assessment: 05:30 General: Appears uncomfortable, Behavior is calm, cooperative. Pain: Complains of pain kd3 in vaginal pain. 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 - Social history:: Smoking status: . Screenin:40 [facility] ED Fall Risk Assessment (Adult) History of falling in the last 3 months, aa9 including since admission No falls in past 3 months (0 pts) Confusion or Disorientation No (0 pts) Intoxicated or Sedated Impaired Gait No (0 pts) Mobility Assist Device Used No (0 pt) Altered Elimination No (0 pt) Score/Fall Risk Level 0 - 2 = Low Risk Oriented to surroundings, Maintained a safe environment. Abuse screen: Denies threats or abuse. Denies injuries from another. Nutritional screening: No deficits noted. Tuberculosis screening: No symptoms or risk factors identified. Assessment: 06:39 General: Appears in no apparent distress. comfortable, Behavior is calm, cooperative. aa9 Neuro: Level of Consciousness is awake, alert, obeys commands, Oriented to person, place, time, situation. Respiratory: Airway is patent Respiratory effort is even, unlabored. : Reports vaginal itching. 06:45 Reassessment: Patient appears in no apparent distress at this time. Patient and/or aa9 family updated on plan of care and expected duration. Pain level reassessed. Patient is alert, oriented x 3, equal unlabored respirations, skin warm/dry/pink. 07:07 Reassessment: Patient appears in no apparent distress at this time. No changes from ko1 previously documented assessment. Patient and/or family updated on plan of care and expected duration. Pain level reassessed. Patient is alert, oriented x 3, equal unlabored respirations, skin warm/dry/pink. Pain: Complains of pain in vaginal pain. Cardiovascular: No deficits noted. GI: No deficits noted. EENT: No deficits noted. Derm: No deficits noted. Musculoskeletal: No deficits noted. Vital Signs: 05:27 BP 135 / 67; Pulse 72; Resp 19; Temp 97.7(O); Pulse Ox 100% on R/A; Weight 98.43 kg; kd3 Height 5 ft. 11 in. (180.34 cm); Pain 10/10; 06:46 BP 149 / 79; Pulse 71; Resp 18 S; Pulse Ox 98% ; aa9 07:07 BP 155 / 81; Pulse 61; Resp 16; Pulse Ox 99% ; ko1 05:27 Body Mass Index 30.27 (98.43 kg, 180.34 cm) kd3 ED Course: 05:20 Patient arrived in ED. ag3 05:30 Triage completed. kd3 05:30 Arm band placed on right wrist. kd3 05:50 Rajiv Travis MD is Attending Physician. sp3 05:51 Jody Reynoso, RN is Primary Nurse. aa9 06:00 Missed attempt(s): 20 gauge in right antecubital area. Bleeding controlled, band aid aa9 applied, catheter tip intact. 06:34 Inserted saline lock: 22 gauge in right antecubital area, using aseptic technique. aa9 Blood collected. 06:39 Lipase Sent. aa9 06:45 Patient has correct armband on for positive identification. Placed in gown. Bed in low aa9 position. Adult w/ patient. Pulse ox on. NIBP on. 06:46 Lipase Sent. aa9 06:46 CMP Sent. aa9 07:09 Attending Physician role handed off by Rajiv Travis MD rn 07:09 Osmar Magallon MD is Attending Physician. rn 07:14 Warm blanket given. PO fluids given. Assisted to bathroom. ko1 07:14 IV is patent, is intact, with good blood return, Flushed right antecubital saline lock ko1 with 5 ml normal saline. 07:38 CT Abd/Pelvis - IV Contrast Only In Process Unspecified. EDMS 08:18 No provider procedures requiring assistance completed. IV discontinued, intact, ko1 bleeding controlled, No redness/swelling at site. Pressure dressing applied. Administered Medications: 06:16 Drug: Lidocaine Gel 2 % 1 application {Note: applied to affected area.} Route: Mucous aa9 Membrane; Medication: 06:45 VIS not applicable for this client. aa9 Outcome: 08:07 Discharge ordered by MD. rn 08:36 Discharged to home ambulatory. ko1 08:36 Condition: stable 08:36 Discharge instructions given to patient, Instructed on discharge instructions, follow up and referral plans. Demonstrated understanding of instructions, follow-up care. 08:37 Patient left the ED. ko1 Signatures: Dispatcher [employer] EDMS Osmar Magallon MD MD rn Gomez, Alice 3 Rajiv Travis MD MD sp3 Doucette, Kyli, RN RN kd3 Jody Reynoso, DANTE HOWELL aa9 Daisy Salcedo, DANTE RN ko1 Corrections: (The following items were deleted from the chart) 05:31 05:27 Acuity: JERRY 4 kd3 kd3
[2022-04-09 08:53] VITALS: TEMP 97.7
[2022-04-09 09:05] VITALS: BP 155/81; O2SAT 99
== END 2022-04-09 08:37 | disposition home or self-care (01) ==
LOC: ER 05:19
DX: R10.2 Pelvic and perineal pain (principal); E11.9 Type 2 diabetes mellitus without complications; I10 Essential (primary) hypertension; Z88.1 Allergy status to other antibiotic agents; Z88.8 Allergy status to other drugs, medicaments and biological substances
CPT/HCPCS: 85025; 36415; 83690; 80053; 74177; Q9967; 81003; 81015

== ENCOUNTER 2022-04-25 20:05 | Emergency (ER) | payer OTHER ==
--- OUTSIDE RECORDS SUMMARY | 2022-04-25 20:31 | XMS REPORT | Continuity of Care Document ---
:1960 Author Organization [facility] t Address [address] [place] [address] Care Team Providers Name Role Phone Luciano Travis Primary Care Physician [phone] Luciano Travis Attending Clinician Unavailable ANDRESSA PUCKETT Attending Clinician Unavailable SHEFALI HOOPER Attending Clinician Unavailable ABRIL JOHNSON Attending Clinician Unavailable Cristofer ANN, Tuyet Robin Attending Clinician Aba Estrada MD Attending Clinician [phone] Brody Hinds MD Attending Clinician BRODY HINDS Attending Clinician Unavailable Doctor Unassigned, Luxora Attending Clinician Unavailable Jordy HOWELL, Ct Attending [...] Number Effective Date Expiration Date S gaby [facility] [id number] 2020 00:00:00 [employer] MEDICARE [id number] 2020 00:00:00 [facility] [id number] 2021 [facility] ADVANTAGE 00:00:00 - [facility] [id number] 2013 2020 00:00:00 00:00:00 Problems Condition Condition [...] 00:01: He naomi Active 00 11/11/2019 NISHA Lima Troponin I Troponin I Disease Active U [...] 12:48:00 l Active 00:00: Amador 04/01/2016 00 [place] STRESS STRESS Diagnosis Active 2015-08-10 Me moria URINARY URINARY 4-14 07:24:00 l INCONTINEN INCONTINEN 00:00: Mikel salgado CE-N39.3 / CE-N39.3 / 00 URET URET Active 05/25/2015 [place] R31.2 - R31.2 - Diagnosis Active 2015-06-06 Memoria OTHER OTHER 3-14 16:22:00 l MICROSCOPI MICROSCOPI 00:01: Mikel Pineda C 00 HEMATURIA HEMATURIA Active 04/24/2015 Chrystal English OPID [place] 727.00 - 727.00 - Diagnosis Active 2011-09-02 Memoria SYNOVITIS SYNOVITIS 08-29 08:58:00 l NOS NOS Active 00:01: Randy iqbal 08/30/2011 00 [facility] An[facility] Anxiety Problem Resolve 2019-11-26 M emoria (finding) (finding) d 23:02:23 l Resolved [place] Problem 11/26/2019 Tomasa Farrar [place] Depressive Depressiv Problem Resolve 2019-11-26 Memoria disorder e disorder d 23:02:23 l (disorder) (disorder) He rmann Resolved Problem 11/26/2019 Tomasa Farrar [place] Diabetes Diabetes Problem Resolve 2019-11-26 Memoria mellitus mellitus d 23:02:23 l (disorder) (disorder) He rmann Resolved Problem 11/26/2019 Tomasa Farrar [place] Endometrio Endometri Problem Resolve 2019-11-26 Memoria sis osis d 23:02:23 l (disorder) (disorder) He rmann Resolved Problem 11/26/2019 [facility] [place] Fibromyosi Problem Resolve 2019-11-26 Memoria tis Fibromyosi d 23:02:23 l (disorder) tis Randy n (disorder) Resolved Problem 11/26/2019 Tomasa Farrar [place] Lumbar Lumbar Problem Resolve 2019-11-26 Mem oria spondylosi spondylosi d 23:02:23 l s s Amador (disorder) (disorder) Resolved Problem 11/26/2019 Tomasa Farrar [place] Motion Motion Problem Resolve 2019-11-26 Mem oria sickness sickness d 23:02:23 l (disorder) (disorder) He rmann Resolved Problem 11/26/2019 [facility] [place] Neuropathy Neuropath Problem Resolve 2019-11-26 Memoria (disorder) y d 23:02:23 l (disorder) Randy n Resolved Problem 11/26/2019 Tomasa Farrar [place] Sleep Sleep Problem Resolve 2019-11-26 Alonzo summer apnea apnea d 23:02:23 l (finding) (finding) Herm archana Resolved Problem 11/26/2019 [facility] [place] History of History of Problem Resolve [place] arthritis arthritis HL7.CCDAR2 d Physici ans Restless Restless Problem Commo n legs leg Spirit syndrome syndrome - [facility] Fibromyalg Fibromyalg Problem C ommon ia ia [facility] Type II Diabetes Problem Common diabetes type 2, Spirit mellitus controlled - [facility] I well [facility] Morbid Morbid Problem Common obesity obesity [facility] [id number] Body mass Problem Com mon index Spirit [BMI] - [facility] 32.0-32.9, [facility] [id number] Other Problem Common obesity Spirit due to - [facility] excess [facility] Diabetic Diabetic Problem Commo n neuropathy neuropathy Sp marco antonio - [facility] Fatty Fatty Problem Common liver liver [facility] Insomnia Insomnia Problem Commo n [facility] [id number] Incontinen Problem Com mon ce of Spirit feces, - [facility] unspecifie [facility] fecal [facility] incontinen Medica l ce type Center History of History of Problem Resolve [place] depression depression HL7.CCDAR2 d Physici ans [id number] Psoriatic Problem Com mon arthritis [facility] Bipolar Bipolar Problem Common disorder disorder [facility] [id number] GERD Problem Common without Spirit esophagiti - [facility] s [facility] 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 [facility] sleep sleep - [facility] disorder disorder, St of 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 [facility] work type type [facility] Ankylosing Ankylosing Problem C ommon spondyliti spondyliti Sp marco antonio s s of - CHI multiple St sites in [facility] spine [facility] [id number] Macular Problem Comm on hole of Spirit left eye - [facility] Mixed Hyperlipid Problem Commo n hyperlipid emia, Spirit emia mixed [facility] Iron Iron Problem Common deficiency deficiency Sp marco antonio anemia due anemia due - CHI to chronic to chronic St blood loss blood loss [facility] Obstructiv Obstructiv Problem C ommon e sleep e sleep Spirit apnea apnea - [facility] Overactive Overactive Problem C ommon bladder bladder [facility] [id number] Chronic Problem Common obstructiv Spirit e - [facility] d COPD Center type [id number] Primary Problem Commo n osteoarthr Spirit itis of - [facility] both knees [facility] [id number] Urinary Problem Commo n incontinen Spirit ce, - CHI unspecifie St d type [facility] [id number] Altered Problem Commo n mental Spirit status, - [facility] unspecifie [facility] altered [facility] mental Medical status Center type [id number] USP Problem Com mon (current) Spirit use of - [facility] insulin [facility] [id number] Decreased Problem Com mon vision of Spirit left eye [facility] Essential Benign Problem Common hypertensi essential Spi rit on HTN [facility] [id number] Daytime Problem Comm on 00 somnolence [facility] Vitamin D Vitamin D Problem Com mon deficiency deficiency Sp marco antonio [facility] Rheumatoid Rheumatoid Problem C ommon arthritis arthritis Spir it [facility] History of History of Problem Resolve [place] diabetes diabetes HL7.CCDAR2 d Ph ysici mellitus mellitus ans [id number] Type 2 Problem Common diabetes [facility] mellitus [facility] with [facility] disease [id number] Type 2 Problem Common diabetes [facility] mellitus - [facility] with [facility] [id number] Memory Problem Common change Spirit [facility] [id number] History of Problem Co mmon suicidal [facility] ideation [facility] History of History of Problem Resolve [...] right of right knee knee 04/01/2016 04/04/2016 [place] Allergies, Adverse Reactions, Alerts Allergy Allergy Status [...] pregabal Active Unknown Commo n in in [facility] canaglif canaglif Active Unknown Commo n lozin lozin [facility] Methylpr Methylpr Active Unknown [facility] gl[facility]pir glimepir Active Unknown Commo n timothy timothy [facility] [id number] Drug Active Unknown Common allergy [facility] Lyrica Lyrica Active Memoria l [place] Latex Latex Active Memoria l [place] Adhesive Adhesive Active Memori a l [place] Family History Family Member Diagnosis Comments Start Date Stop Date Source Mother Family history of [facility] diabetes mellitus Mother Family history of [facility] lung cancer Mother Family history of [facility] hypertension Father Family history of [facility] stroke Brother Family history of [facility] diabetes mellitus Natural father Stroke [facility] Natural mother Lung cancer [facility] Social History Social Habit Start Date Stop Date Quantity Comments Source History of [facility] - Tobacco Use [facility] Alcohol intake 2022-01-25 2022-01-25 Ex-drinker Religious 00:00:00 00:00:00 (finding) Hospital Alcohol Comment 2022-01-24 2022-01-24 rarely [facility] 00:00:00 00:00:00 Hospital Exposure to 2021-10-10 2021-10-20 Not sure [facility] SARS-CoV-2 00:00:00 15:53:00 (event) Tobacco use and 2020-06-22 2020-06-22 Smokeless tobacco [facility] exposure 00:00:00 00:00:00 non-user Hospital Social History 2015-08-03 2015-08-03 [facility] 14:18:54 14:18:54 Sex Ass[birth year] At [birth year] [facility] 00:00:00 00:00:00 Hospital Smoking Status Start Date Stop Date Source Never smoked tobacco [facility] Medications Ordered Filled Start Stop [...] l tablet day. PILOCARPINE 2021-02 Yes 7.5mg Q.[id number] Take 7.5 [facility] HCL ORAL 2-[id number] 03:06: 3D mouth 3 [...] 07 l lithium 300 2021-02 Yes 300mg Q.[id number] Take 300 [facility] MG capsule 2-[id number] 03:06: 3D mouth 3 [...] 30 (thirty) days. insulin 2021-02 Yes 22U Q.[id number] Inject 22 [facility] lispro 2-[id number] (HUMALOG 03:06: 3D under the [...] l tablet day. PILOCARPINE 2021-02 Yes 7.5mg Q.91528473 Take 7.5 [facility] HCL ORAL 2-[id number] 03:06: 3D mouth 3 [...] 07 l lithium 300 2021-02 Yes 300mg Q.[id number] Take 300 [facility] MG capsule 2-[id number] 03:06: 3D mouth 3 [...] 30 (thirty) days. insulin 2021-02 Yes 22U Q.[id number] Inject 22 [facility] lispro 2-[id number] (HUMALOG 03:06: 3D under the [...] l tablet day. PILOCARPINE 2021-02 Yes 7.5mg Q.[id number] Take 7.5 [facility] HCL ORAL 2-[id number] 03:06: 3D mouth 3 [...] 07 l lithium 300 2021-02 Yes 300mg Q.[id number] Take 300 [facility] MG capsule 2-[id number] 03:06: 3D mouth 3 [...] 30 (thirty) days. insulin 2021-02 Yes 22U Q.[id number] Inject 22 [facility] lispro 2-[id number] (HUMALOG 03:06: 3D under the [...] l tablet day. PILOCARPINE 2021-02 Yes 7.5mg Q.[id number] Take 7.5 [facility] HCL ORAL 2-[id number] 03:06: 3D mouth 3 [...] MG 03:06: nightly. Hospita capsule 07 l celecoxib 2021-02 Yes 200mg Q.5D Take 200 [facility] (CeleBREX) 2-[address] 200 MG 03:06: mouth 2 Hospita capsule 07 (two) l times a day. hydroxychlo 2021-02 Yes Q.5D Take by Met hodi roquine 2-[address] (PLAQUENIL) 03:06: (two) Hospi ta 200 mg 07 times a l tablet day. PILOCARPINE 2021-02 Yes 7.5mg Q.54534889 Take 7.5 [facility] HCL ORAL 2-[id number] 03:06: 3D mouth 3 [...] 07 l lithium 300 2021-02 Yes 300mg Q.[id number] Take 300 [facility] MG capsule 2-[id number] 03:06: 3D mouth 3 [...] 30 (thirty) days. insulin 2021-02 Yes 22U Q.[id number] Inject 22 [facility] lispro 2-[id number] (HUMALOG 03:06: 3D under the [...] Insulin) 300 unit/mL (1.5 mL) insulin pen leflunomide 2021-02 Yes 20mg QD Take 20 mg [facility] (ARAVA) 20 2-[address] MG tablet 03:06: nightly. Hosp ruiz 07 l baclofen 2021-02 Yes 1 tablet Metho di (LIORESAL) 2-[address] 10 MG 03:06: Orally Hospita tablet 07 Once a day l insulin 2021-02 Yes 20U Inject 20 Metho di degludec 2-[address] (Tresiba 03:06: under the Hosp ruiz FlexTouch 07 skin. l U-100) 100 unit/mL (3 mL) subcutaneou s pen atorvastati 2021-02 Yes 10mg QD Take 10 mg [facility] n (LIPITOR) 2-[address] 10 mg 03:06: nightly. Hospita tablet 07 l lithium 300 2021-02 Yes 300mg Q.[id number] Take 300 [facility] MG capsule 2-[id number] 03:06: 3D mouth 3 [...] 30 (thirty) days. insulin 2021-02 Yes 22U Q.[id number] Inject 22 [facility] lispro 2-[id number] (HUMALOG 03:06: 3D under the [...] U T toxin Type 10-24 Intr[facility]cu [facility] A (Cosm) 18:30: 20:58 lar, Once, (Botox) 00 :00 On Fri injection 10/24/21 at 100 Units 1330, For 1 dose
In dications: urgency incontinen ce lisinopril- Yes 1{tbl} QD Take 1 UT hydroCHLORO 9-14 tablet by [facility] thiazide 14:07: mouth 1 20-12.5 MG 53 [...] 14:04: capsule 54 sulfamethox 2022-0 2- No [id number] 1{tbl} Q.5D Take 1 UT azole-trime -22 tablet by He alth thoprim 00:00: 04:59 mouth in (Bactrim 00 :00 the DS) 800-160 morning MG tablet and 1 tablet in the evening. Do all this for 7 days. sulfamethox 2022-0 2021- No [id number] 1{tbl} Q.5D Take 1 UT azole-trime -11-01 tablet by He alth thoprim 00:00: 04:59 mouth in (Bactrim 00 :00 the DS) 800-160 morning MG tablet and 1 tablet in the evening. Do all this for 7 days. gabapentin 2022-0 Yes 1200mg Take 1,200 Univers 600 mg 8-31 mg by ity of tablet 13:32: mouth in [address] and 1,200 mg in the evening. gabapentin 2022-0 Yes 1200mg Take 1,200 Univers 600 mg 8-31 mg by ity of tablet 13:32: mouth in [address] and 1,200 mg in the evening. gabapentin 2022-0 Yes 1200mg Take 1,200 Univers 600 mg 8-31 mg by ity of tablet 13:32: mouth in [place] 18 the Medical morning Branch and 1,200 mg in the evening. prednisoLON 2021- No 1[drp] 1 Drop U nivers E acetate 1 10-10 every 2 ity of % 13:30: 00:00 (two) [place] ophthalmic 41 :00 hours as Medic al suspension needed for Bra nch drops Itching. prednisoLON 2021-2021- No 1[drp] 1 Drop U nivers E acetate 1 10-10 every 2 ity of % 13:30: 00:00 (two) [place] ophthalmic 41 :00 hours as Medic al suspension needed for Bra nch drops Itching. pilocarpine 2021- No 7.5mg Take 7.5 Univers 7.5 mg 10-10 mg by ity of tablet 13:30: 00:00 mouth 3 [place] 38 :00 (three) Medical times Branch daily. pilocarpine 2021-2021- No 7.5mg Take 7.5 Univers 7.5 mg 10-10 mg by ity of tablet 13:30: 00:00 mouth 3 [place] 38 :00 (three) Medical times Branch daily. Milnacipran 2021-2021- No 50mg Take 50 mg Univers (SAVELLA) 10-10 by mouth ity o f 50 mg 13:30: 00:00 at [place] tablet 29 :00 bedtime. Medical Branch Milnacipran 2021-0 2021- No 50mg Take 50 mg Univers (SAVELLA) 10-10 by mouth ity o f 50 mg 13:30: 00:00 at [place] tablet 29 :00 bedtime. Medical Branch suvorexant 2021-0 2021- No 20mg Take 20 mg Univers (BELSOMRA) 10-10 by mouth ity of 20 mg Tab 13:30: 00:00 at [place] 19 :00 bedtime. Medical Branch suvorexant 2021-0 2021- No 20mg Take 20 mg Univers (BELSOMRA) 10-10 by mouth ity of 20 mg Tab 13:30: 00:00 at [place] 19 :00 bedtime. Medical Branch simvastatin 2021-0 2- No 40mg Take 40 mg Univers 40 mg 10-10 by mouth ity of tablet 13:30: 00:00 at [place] 04 :00 bedtime. Medical Branch simvastatin 2021- No 40mg Take 40 mg Univers 40 mg 10-10 by mouth ity of tablet 13:30: 00:00 at [place] 04 :00 bedtime. Medical Branch insulin 2021- No 160U inject 160 Uni vers glargine 10-10 Units ity of U-300 conc 13:29: 00:00 under the [place] (TOUJEO 49 :00 skin. Medical SOLOSTKY Branch U-300 INSULIN) 300 unit/mL (1.5 mL) InPn insulin 2021- No 160U inject 160 Uni vers glargine 10-10 Units ity of U-300 conc 13:: 00:00 under the [place] (TOUJEO 49 :00 skin. Medical [facility] Branch U-300 INSULIN) 300 unit/mL (1.5 mL) InPn traZODONE 2021- No 100mg Take Univer s 100 mg 10-10 100-200 mg ity of tablet 13:: 00:00 by mouth [place] 30 :00 at bedtime Medical as needed Branch for Insomnia. traZODONE 2021- No 100mg Take Univer s 100 mg 10-10 100-200 mg ity of tablet 13:: 00:00 by mouth [place] 30 :00 at bedtime Medical as needed Branch for Insomnia. SERTraline 2021- No 50mg Take 50 mg Univers 50 mg 10-10 by mouth. ity of tablet 13:: 00:00 [place] 05 :00 Medical Branch SERTraline 2021-2021- No 50mg Take 50 mg Univers 50 mg 10-10 by mouth. ity of tablet 13:: 00:00 [place] 05 :00 Medical Branch lithium 2021-2021- No 300mg Take 300 Univ ers carbonate 10-10 08-31 mg by ity of 300 mg 13:28: 00:00 mouth. [place] capsule 53 :00 Medical Branch lithium 2021-2021- No 300mg Take 300 Univ ers carbonate 10-10 08-31 mg by ity of 300 mg 13:28: 00:00 mouth. [place] capsule 53 :00 Medical Branch hydroxychlo 0 2021- No 200mg Take 200 Univers roquine [...] by mouth ity of 13:28: 00:00 daily. [place] 25 :00 [facility] Branch foLIC acid 2021-2021- No 2mg Take 2 mg U nivers 1 mg tablet 10-10 by mouth ity of 13:28: 00:00 daily. [place] 25 :00 [facility] Branch exenatide 2021- No 2mg inject 2 Uni vers microsphere 10-10 mg under ity of s 2 mg/0.65 13:27: 00:00 the skin. [place] [facility] 56 :00 Medical injection Branch exenatide 2021- No 2mg inject 2 Uni vers microsphere 10-10- mg under ity of s 2 mg/0.65 13:27: 00:00 the skin. [facility] 56 :00 Medical injection Branch doxepin 10 2021- No 10mg Take 10 mg Univers mg capsule 10-10 by mouth. ity of 13:27: 00:00 [place] 38 :00 Medical Branch doxepin 10 2021- No 10mg Take 10 mg Univers mg capsule 10-10 by mouth. ity of 13:27: 00:00 [place] 38 :00 Medical Branch cycloSPORIN 2021-2021- No [...] of 200 mg 13:27: 00:00 mouth 2 [place] capsule 25 :00 (two) Medical times Branch daily. celecoxib 2021- No 200mg Take 200 Un emanuel (CELEBREX) 10-10 08-31 mg by ity of 200 mg 13:27: 00:00 mouth 2 [place] capsule 25 :00 (two) Medical times Branch daily. aspirin 81 2021- No 81mg Take 81 mg Univers mg chewable 10-10 by mouth ity of tablet 13:27: 00:00 daily. [place] 22 :00 Medical Branch aspirin 81 0 2021- No 81mg Take 81 mg Univers mg chewable 10-10- by mouth ity of tablet 13:27: 00:00 daily. [place] 22 :00 Medical Branch Armodafinil 2021- No 250mg Take 250 Univers (NUVIGIL) 10-10 08-31 mg by ity of 250 mg Tab 13:27: 00:00 mouth [place] 19 :00 daily. Medical Branch Armodafinil 2021- No 250mg Take 250 Univers (NUVIGIL) 8 08-31 mg by ity of 250 mg Tab 13:27: 00:00 mouth [place] 19 :00 daily. Medical Branch ARIPiprazol 2021- [...] us MG/1.5ML solution pen-injecto r semaglutide Yes [id number] Take U nivers (OZEMPIC) 10-10 0.25mg ity of 0.25 mg or 00:00: weekly for [place] 0.5 mg(2 00 two weeks, Medic al mg/1.5 mL) then Branch PnIj increase to 0.5mg weekly if tolerate insulin Yes [id number] 30U inject Uni vers degludec 10-10 30-40 ity of (TRESIBA 00:00: Units [place] FLEXTOUCH 00 under the Medic al U-200) 200 skin every Bra nch unit/mL (3 morning. mL) InPn E11.65 flash 0 Yes [id number] 1{kit} 1 Kit Univ ers glucose 10-10 every 14 ity of sensor 00:00: (fourteen) [place] (FREESTYLE 00 days. Medical TERRI 2 E11.65 Branch SENSOR) Kit Insulin Yes [id number] Use as Uni vers Mark, 10-10 directed ity of Disposable, 00:00: once daily [place] (BD LOUIE 00 E11.65 Medical 2ND GEN PEN Branch NEEDLE) 32 gauge x 5/32" Ndle semaglutide Yes [id number] Take U nivers (OZEMPIC) 8 0.25mg ity of 0.25 mg or 00:00: weekly for [place] 0.5 mg(2 00 two weeks, Medic al mg/1.5 mL) then Branch PnIj increase to 0.5mg weekly if tolerate insulin Yes [id number] 30U inject Uni vers degludec 10-10 30-40 ity of (TRESIBA 00:00: Units [place] FLEXTOUCH 00 under the Medic al U-200) 200 skin every Bra nch unit/mL (3 morning. mL) InPn E11.65 flash Yes [id number] 1{kit} 1 Kit Univ ers glucose - every 14 ity of sensor 00:00: (fourteen) [place] (FREESTYLE 00 days. Medical TERRI 2 E11.65 Branch SENSOR) Kit Insulin Yes [id number] Use as Uni vers Mark, 10-10 directed ity of Disposable, 00:00: once daily [place] (BD LOUIE Medical 2ND GEN PEN Branch NEEDLE) 32 gauge x 5/32" Ndle semaglutide Yes [id number] Take U nivers (OZEMPIC) 8 0.25mg ity of 0.25 mg or 00:00: weekly for [place] 0.5 mg(2 00 two weeks, Medic al mg/1.5 mL) then Branch PnIj increase to 0.5mg weekly if tolerate insulin Yes [id number] 30U inject Uni vers degludec 10-10 30-40 ity of (TRESIBA 00:00: Units [place] FLEXTOUCH 00 under the Medic al U-200) 200 skin every Bra nch unit/mL (3 morning. mL) InPn E11.65 flash Yes [id number] 1{kit} 1 Kit Univ ers glucose 8-31 every 14 ity of sensor 00:00: (fourteen) [place] (FREESTYLE 00 days. Medical TERRI 2 E11.65 Branch SENSOR) Kit Insulin Yes [id number] Use as Uni vers Mark, 8- directed ity of Disposable, 00:00: once daily [place] (BD LOUIE 00 E11.65 Medical 2ND GEN PEN Branch NEEDLE) 32 gauge x 5/32" Ndle flash 2021- No [id number] 1{kit} 1 Kit Uni vers glucose 10-10 every 14 ity of sensor 00:00: 00:00 (fourteen) [place] (FREESTYLE 00 :00 days. Medical TERRI 2 E11.65 Branch SENSOR) Kit flash 2021- No [id number] 1{kit} 1 Kit Uni vers glucose 10-10 every 14 ity of sensor 00:00: 00:00 (fourteen) [place] (FREEST[place] 00 :00 days. Medical TERRI 2 E11.65 Branch SENSOR) Kit traMADol traMADol 2021- No 1{table QD traMADol HCl 50 MG HCl 50 MG 04-03 t_as_ne HCl 50 MG 00:00: 00:00 eded} 00 :00 sulfamethox 2021-0 Yes [id number] 1{tbl} Take 1 Univers azole-trime 2-14 tablet by ity of thoprim 00:00: mouth [place] 800-160 mg 00 every 12 Medic al per tablet (twelve) Branc h hours. doxycycline 2021-0 Yes [id number] 100mg Take 1 Univers hyclate 100 2-14 capsule by it y of mg capsule 00:00: mouth 2 [place] 00 (two) Medical times Branch daily. sulfamethox 2021-0 Yes [id number] 1{tbl} Take 1 Univers azole-trime 2-14 tablet by ity of thoprim 00:00: mouth [place] 800-160 mg 00 every 12 Medic al per tablet (twelve) Branc h hours. doxycycline 2021-0 Yes [id number] 100mg Take 1 Univers hyclate 100 2-14 capsule by it y of mg capsule 00:00: mouth 2 [place] 00 (two) Medical times Branch daily. sulfamethox 2022-0 Yes [id number] 1{tbl} Take 1 Univers azole-trime 2-14 tablet by ity of thoprim 00:00: mouth [place] 800-160 mg 00 every 12 Medic al per tablet (twelve) Branc h hours. doxycycline 202-0 Yes [id number] 100mg Take 1 Univers hyclate 100 2-14 capsule by it y of mg capsule 00:00: mouth 2 [place] 00 (two) Medical times Branch daily. sulfamethox 2021- No [id number] 1{tbl} Take 1 Univers azole-trime 2-14 -31 tablet by it y of thoprim 00:00: 00:00 mouth [place] 800-160 mg 00 :00 every 12 Medic al per tablet (twelve) Branc h hours. doxycycline 2021- No [id number] 100mg Take 1 Univers hyclate 100 2-14 -31 capsule by i ty of mg capsule 00:00: 00:00 mouth 2 [place] as 00 :00 (two) Medical times Branch daily. sulfamethox 2021- No [id number] 1{tbl} Take 1 Univers azole-trime 2-14 - tablet by it y of thoprim 00:00: 00:00 mouth [place] 800-160 mg 00 :00 every 12 Medic al per tablet (twelve) Branc h hours. doxycycline No [id number] 100mg Take 1 Univers hyclate 100 2-14 [...] Sun Branch 12/03/20 at 1615, NOEL
[facility] Rest[facility] : GREG PEACOCK [...] 02 :00 daily. l armodafiniL 2020- No [id number] 250mg QD Take 1 [facility] (NUVIGIL) 5-17 11-[address] 250 mg 00:00: 05:59 (250 mg Hospita tablet 00 :00 total) by l mouth daily for 180 days. armodafiniL 2020- No [id number] 250mg QD Take 1 [facility] (NUVIGIL) 5-17 [...] tablet 00 each day. amitriptyli 2020- No [id number] 50mg QD Take 2 [facility] ne (ELAVIL) 5-14 11-[address] 25 MG 00:00: 05:59 (50 mg Hospita tablet 00 :00 total) by l mouth nightly for 180 days. amitriptyli 2020- No [id number] 50mg QD Take 2 Method[facility] ne (ELAVIL) 5-14 11-[address] 25 MG 00:00: 05:59 (50 mg Hospita tablet 00 :00 total) by l mouth nightly for 180 days. carBAMazepi 2021- No [id number] 200mg Q.5D Take 1 Methodi ne 5-13 05-[address] (TEGretoL) 00:00: 04:59 (200 mg Hos ileana 200 mg 00 :00 total) by l tablet mouth 2 (two) times a day. carBAMazepi 2021- No [id number] 200mg Q.5D Take 1 Methodi ne 06-[address] (TEGretoL) 00:00: 04:59 (200 mg Hos ileana 200 mg 00 :00 total) by l tablet mouth 2 (two) times a day. carBAMazepi 2021- No [id number] 200mg Q.5D Take 1 Methodi ne 06-[address] (TEGretoL) 00:00: 04:59 (200 mg Hos ileana 200 mg 00 :00 total) by l tablet mouth 2 (two) times a day. carBAMazepi 2021- No [id number] 200mg Q.5D Take 1 Methodi ne 06-[address] (TEGretoL) 00:00: 04:59 (200 mg Hos ileana 200 mg 00 :00 total) by l tablet mouth 2 (two) times a day. carBAMazepi 2021- No [id number] 200mg Q.5D Take 1 [facility] (TEGretoL) 00:00: 04:59 (200 mg Hos ileana 200 mg 00 :00 total) by l tablet mouth 2 (two) times a day. carBAMazepi 2021- No [id number] 200mg Q.5D Take 1 [facility] (TEGretoL) 00:00: 04:59 (200 mg Hos ileana 200 mg 00 :00 total) by l tablet mouth 2 (two) times a day. carBAMazepi 2021- No [id number] 200mg Q.5D Take 1 [facility] (TEGretoL) 00:00: 04:59 (200 mg Hos ileana 200 mg 00 :00 total) by l tablet mouth 2 (two) times a day. Dexlansopra 2020- No 60mg Take 60 mg [facility] zole 06-21 by mouth ity of (DEXILANT) 21:25: 00:00 [...] at [place] tablet 56 bedtime. Medical Branch aspirin 81 Yes 81mg Take 81 mg U nivers mg chewable 5-12 by mouth ity of tablet 20:09: daily. [place] [address] Medical Branch atorvastati Yes 10mg Take 10 mg [facility] n 10 mg 5-12 by mouth. ity of tablet 20:09: [place] [address] Medical Branch doxepin 10 Yes 10mg Take 10 mg U nivers mg capsule 5-12 by mouth. ity of 20:09: [place] [address] Medical Branch insulin Yes 160U inject 160 Univ ers glargine 5-12 Units ity of U-300 conc 20:09: under the [place] ([place]OU[place] 27 skin. Medical SOLOSTAR Branch U-300 INSULIN) 300 unit/mL (1.5 mL) InPn lithium Yes 300mg Take 300 Unive rs carbonate 5-12 mg by ity of 300 mg 20:09: mouth. [place] [address] Medical Branch SERTraline Yes 50mg Take 50 mg U nivers 50 mg 5-12 by mouth. ity of tablet 20:09: [place] [address] Medical Branch celecoxib Yes 200mg Take 200 Uni vers (CELEBREX) 5-12 mg by ity of 200 mg 20:09: mouth 2 [place] [address] (two) Medical times Branch daily. hydroxychlo Yes 200mg Take 200 U nivers roquine 200 5-12 mg by ity of mg tablet 20:09: mouth 2 [place] [address] (two) Medical times Branch daily. cyclobenzap Yes 10mg Take 10 mg [facility] rine 10 mg 5-12 by mouth 3 ity of tablet 20:09: (three) [place] [address] times Medical daily. Branch pilocarpine Yes 7.5mg Take 7.5 U nivers 7.5 mg 5-12 mg by ity of tablet 20:09: mouth 3 [place] [address] (three) Medical times Branch daily. Armodafinil Yes 250mg Take 250 U nivers (NUVIGIL) 5-12 mg by ity of 250 mg Tab 20:09: mouth [place] [address] daily. Medical Branch cycloSPORIN Yes 1[drp] Place 1 U nivers E 5-12 Drop in ity of (RESTASIS) 20:09: both eyes [place] 0.05 % 27 every 12 Medical drops (twelve) Branch hours. aspirin 81 Yes 81mg Take 81 mg U nivers mg chewable 5-12 by mouth ity of tablet 20:09: daily. [place] [address] Medical Branch atorvastati Yes 10mg Take 10 mg [facility] n 10 mg 5-12 by mouth. ity of tablet 20:09: [place] [address] Medical Branch doxepin 10 Yes 10mg Take 10 mg U nivers mg capsule 5-12 by mouth. ity of 20:09: [address] Branch insulin Yes 160U inject 160 Univ ers glargine 5-12 Units ity of U-300 conc 20:09: under the [place] ([place] 27 skin. Medical SOLOSTAR Branch U-300 INSULIN) 300 unit/mL (1.5 mL) InPn lithium Yes 300mg Take 300 Unive rs carbonate 5-12 mg by ity of 300 mg 20:09: mouth. [place] [address] Medical Branch SERTraline Yes 50mg Take 50 mg U nivers 50 mg 5-12 by mouth. ity of tablet 20:09: [address] celecoxib Yes 200mg Take 200 Uni vers (CELEBREX) 5-12 mg by ity of 200 mg 20:09: mouth 2 [place] [address] (two) Medical times Branch daily. hydroxychlo Yes 200mg Take 200 U nivers roquine 200 5-12 mg by ity of mg tablet 20:09: mouth 2 [place] [address] (two) Medical times Branch daily. cyclobenzap Yes 10mg Take 10 mg [facility] rine 10 mg 5-12 by mouth 3 ity of tablet 20:09: (three) [address] daily. Branch pilocarpine Yes 7.5mg Take 7.5 U nivers 7.5 mg 5-12 mg by ity of tablet 20:09: mouth 3 [place] [address] (three) Medical times Branch daily. Armodafinil Yes 250mg Take 250 U nivers (NUVIGIL) 5-12 mg by ity of 250 mg Tab 20:09: mouth [place] [address] daily. Medical Branch cycloSPORIN Yes 1[drp] Place 1 U nivers E 5-12 Drop in ity of (RESTASIS) 20:09: both eyes [place] 0.05 % 27 every 12 Medical drops (twelve) Branch hours. aspirin 81 Yes 81mg Take 81 mg U nivers mg chewable 5-12 by mouth ity of tablet 20:09: daily. [address] atorvastati Yes 10mg Take 10 mg [facility] n 10 mg 5-12 by mouth. ity of tablet 20:09: [place] 27 Medical Branch doxepin 10 Yes 10mg Take 10 mg U nivers mg capsule 5-12 by mouth. ity of 20:09: [place] [address] Medical Branch insulin Yes 160U inject 160 Univ ers glargine 5-12 Units ity of U-300 conc 20:09: under the [place] ([place] 27 skin. Medical SOLOSTAR Branch U-300 INSULIN) 300 unit/mL (1.5 mL) InPn lithium Yes 300mg Take 300 Unive rs carbonate 5-12 mg by ity of 300 mg 20:09: mouth. [place] [address] Medical Branch SERTraline Yes 50mg Take 50 mg U nivers 50 mg 5-12 by mouth. ity of tablet 20:09: [address] celecoxib Yes 200mg Take 200 Uni vers (CELEBREX) 5-12 mg by ity of 200 mg 20:09: mouth 2 [place] [address] (two) Medical times Branch daily. hydroxychlo Yes 200mg Take 200 U nivers roquine 200 5-12 mg by ity of mg tablet 20:09: mouth 2 [place] [address] (two) Medical times Branch daily. cyclobenzap Yes 10mg Take 10 mg [facility] rine 10 mg 5-12 by mouth 3 ity of tablet 20:09: (three) [place] [address] times [facility] daily. Branch pilocarpine Yes 7.5mg Take 7.5 U nivers 7.5 mg 5-12 mg by ity of tablet 20:09: mouth 3 [place] [address] (three) Medical times Branch daily. Armodafinil Yes 250mg Take 250 U nivers (NUVIGIL) 5-12 mg by ity of 250 mg Tab 20:09: mouth [place] [address] daily. Medical Branch cycloSPORIN Yes 1[drp] Place 1 U nivers E 5-12 Drop in ity of (RESTASIS) 20:09: both eyes [place] 0.05 % 27 every 12 Medical drops (twelve) Branch hours. aspirin 81 Yes 81mg Take 81 mg U nivers mg chewable 5-12 by mouth ity of tablet 20:09: daily. [address] Branch atorvastati Yes 10mg Take 10 mg [facility] n 10 mg 5-12 by mouth. ity of tablet 20:09: [address] Branch doxepin 10 Yes 10mg Take 10 mg U nivers mg capsule 5-12 by mouth. ity of 20:09: [address] insulin 0 Yes 160U inject 160 Univ ers glargine 5-12 Units ity of U-300 conc 20:09: under the [place] ([place] 27 skin. Medical SOLOSTAR Branch U-300 INSULIN) 300 unit/mL (1.5 mL) InPn lithium Yes 300mg Take 300 Unive rs carbonate 5-12 mg by ity of 300 mg 20:09: mouth. [place] [address] Medical Branch SERTraline Yes 50mg Take 50 mg U nivers 50 mg 5-12 by mouth. ity of tablet 20:09: [address] celecoxib Yes 200mg Take 200 Uni vers (CELEBREX) 5-12 mg by ity of 200 mg 20:09: mouth 2 [place] [address] (two) Medical times Branch daily. hydroxychlo Yes 200mg Take 200 U nivers roquine 200 5-12 mg by ity of mg tablet 20:09: mouth 2 [place] [address] (two) Medical times Branch daily. cyclobenzap Yes 10mg Take 10 mg Univers rine 10 mg 5-12 by mouth 3 ity of tablet 20:09: (three) [place] [address] times [facility] daily. Branch pilocarpine Yes 7.5mg Take 7.5 U nivers 7.5 mg 5-12 mg by ity of tablet 20:09: mouth 3 [place] [address] (three) Medical times Branch daily. Armodafinil Yes 250mg Take 250 U nivers (NUVIGIL) 5-12 mg by ity of 250 mg Tab 20:09: mouth [place] [address] daily. Medical Branch cycloSPORIN Yes 1[drp] Place 1 U nivers E 5-12 Drop in ity of (RESTASIS) 20:09: both eyes [place] 0.05 % 27 every 12 Medical drops (twelve) Branch hours. aspirin 81 0 Yes 81mg Take 81 mg U nivers mg chewable 5-12 by mouth ity of tablet 20:09: daily. [place] [address] Medical Branch atorvastati Yes 10mg Take 10 mg [facility] n 10 mg 5-12 by mouth. ity of tablet 20:09: [address] Branch doxepin 10 Yes 10mg Take 10 mg U nivers mg capsule 5-12 by mouth. ity of 20:09: [place] [address] Medical Branch insulin Yes 160U inject 160 Univ ers glargine 5-12 Units ity of U-300 conc 20:09: under the [place] ([place] 27 skin. Medical SOLOSTAR Branch U-300 INSULIN) 300 unit/mL (1.5 mL) InPn lithium Yes 300mg Take 300 Unive rs carbonate 5-12 mg by ity of 300 mg 20:09: mouth. [place] [address] Medical Branch SERTraline Yes 50mg Take 50 mg U nivers 50 mg 5-12 by mouth. ity of tablet 20:09: [address] celecoxib Yes 200mg Take 200 Uni vers (CELEBREX) 5-12 mg by ity of 200 mg 20:09: mouth 2 [place] [address] (two) Medical times Branch daily. hydroxychlo Yes 200mg Take 200 U nivers roquine 200 5-12 mg by ity of mg tablet 20:09: mouth 2 [place] [address] (two) Medical times Branch daily. cyclobenzap Yes 10mg Take 10 mg Univers rine 10 mg 5-12 by mouth 3 ity of tablet 20:09: (three) [place] [address] times Medical daily. Branch pilocarpine Yes 7.5mg Take 7.5 U nivers 7.5 mg 5-12 mg by ity of tablet 20:09: mouth 3 [place] [address] (three) Medical times Branch daily. Armodafinil Yes 250mg Take 250 U nivers (NUVIGIL) 5-12 mg by ity of 250 mg Tab 20:09: mouth [place] [address] daily. Medical Branch cycloSPORIN Yes 1[drp] Place 1 U nivers E 5-12 Drop in ity of (RESTASIS) 20:09: both eyes [place] 0.05 % 27 every 12 Medical drops (twelve) Branch hours. aspirin 81 2021-0 Yes 81mg Take 81 mg U nivers mg chewable 5-12 by mouth ity of tablet 20:09: daily. [address] Branch atorvastati 0 Yes 10mg Take 10 mg Univers n 10 mg 5-12 by mouth. ity of tablet 20:09: [address] doxepin 10 Yes 10mg Take 10 mg U nivers mg capsule 5-12 by mouth. ity of 20:09: [address] Branch insulin Yes 160U inject 160 Univ ers glargine 5-12 Units ity of U-300 conc 20:09: under the [place] ([place] skin. Medical SOLOSTAR Branch U-300 INSULIN) 300 unit/mL (1.5 mL) InPn lithium Yes 300mg Take 300 Unive rs carbonate 5-12 mg by ity of 300 mg 20:09: mouth. [place] [address] Medical Branch SERTraline Yes 50mg Take 50 mg U nivers 50 mg 5-12 by mouth. ity of tablet 20:09: [address] celecoxib Yes 200mg Take 200 Uni vers (CELEBREX) 5-12 mg by ity of 200 mg 20:09: mouth 2 [place] [address] (two) Medical times [place] daily. hydroxychlo Yes 200mg Take 200 U nivers roquine 200 5-12 mg by ity of mg tablet 20:09: mouth 2 [place] [address] (two) Medical times [place] daily. cyclobenzap Yes 10mg Take 10 mg Univers rine 10 mg 5-12 by mouth 3 ity of tablet 20:09: (three) [place] [address] times [facility] daily. Branch pilocarpine Yes 7.5mg Take 7.5 U nivers 7.5 mg 5-12 mg by ity of tablet 20:09: mouth 3 [place] [address] (three) Medical times [place] daily. Armodafinil 0 Yes 250mg Take 250 U nivers (NUVIGIL) 5-12 mg by ity of 250 mg Tab 20:09: mouth [place] [address] daily. Medical Branch cycloSPORIN 0 Yes 1[drp] Place 1 U nivers E 5-12 Drop in ity of (RESTASIS) 20:09: both eyes [place] 0.05 % 27 every 12 Medical drops (twelve) Branch hours. exenatide 1-0 Yes 2mg inject 2 Univ [...] [place] tablet 56 bedtime. Medical Branch Milnacipran 1-0 Yes 50mg Take 50 mg Univers (SAVELLA) 5-12 by mouth ity of 50 mg 15:10: at [place] tablet 56 bedtime. Medical Branch Milnacipran 2020-0 Yes 50mg Take 50 mg Univers (SAVELLA) 5-12 by mouth ity of 50 mg 15:10: at [place] tablet 56 bedtime. Medical Branch Milnacipran 2021-0 Yes 50mg Take 50 mg Univers (SAVELLA) 5-12 by mouth ity of 50 mg 15:10: at [place] tablet 56 bedtime. Medical Branch Milnacipran 1-0 Yes 50mg Take 50 [...] at [place] tablet 56 bedtime. Medical Branch celecoxib Yes 200mg Take 200 Uni vers (CELEBREX) 5-12 mg by ity of 200 mg 15:09: mouth 2 [facility] 27 (two) Medical times Branch daily. hydroxychlo Yes 200mg Take 200 U nivers roquine 200 5-12 mg by ity of mg tablet 15:09: mouth 2 [place] 27 (two) Medical times Branch daily. cyclobenzap Yes 10mg Take 10 mg Univers rine 10 mg 5-12 by mouth 3 ity of tablet 15:09: (three) [place] [address] times Medical daily. Branch pilocarpine Yes 7.5mg Take 7.5 U nivers 7.5 mg 5-12 mg by ity of tablet 15:09: mouth 3 [place] 27 (three) Medical times Branch daily. Armodafinil Yes 250mg Take 250 U nivers (NUVIGIL) 5-12 mg by ity of 250 mg Tab 15:09: mouth [place] 27 daily. Medical Branch cycloSPORIN Yes 1[drp] Place 1 U nivers E 5-12 Drop in ity of (RESTASIS) 15:09: both eyes [place] 0.05 % 27 every 12 Medical drops (twelve) Branch hours. aspirin 81 2021-0 Yes 81mg Take 81 mg U nivers mg chewable 5-12 by mouth ity of tablet 15:09: daily. [address] atorvastati Yes 10mg Take 10 mg Univers n 10 mg 5-12 by mouth. ity of tablet 15:09: [address] doxepin 10 Yes 10mg Take 10 mg U nivers mg capsule 5-12 by mouth. ity of 15:09: [address] insulin Yes 160U inject 160 Univ ers glargine 5-12 Units ity of U-300 conc 15:09: under the [place] ([place] 27 skin. Medical SOLOSTAR Branch U-300 INSULIN) 300 unit/mL (1.5 mL) InPn lithium Yes 300mg Take 300 Unive rs carbonate 5-12 mg by ity of 300 mg 15:09: mouth. [place] [address] Medical Branch SERTraline Yes 50mg Take 50 mg U nivers 50 mg 5-12 by mouth. ity of tablet 15:09: [address] celecoxib Yes 200mg Take 200 Uni vers (CELEBREX) 5-12 mg by ity of 200 mg 15:09: mouth 2 [place] [address] (two) Medical times [place] daily. hydroxychlo Yes 200mg Take 200 U nivers roquine 200 5-12 mg by ity of mg tablet 15:09: mouth 2 [place] [address] (two) Medical times [place] daily. cyclobenzap Yes 10mg Take 10 mg Univers rine 10 mg 5-12 by mouth 3 ity of tablet 15:09: (three) [place] [address] times [facility] daily. Branch pilocarpine Yes 7.5mg Take 7.5 U nivers 7.5 mg 5-12 mg by ity of tablet 15:09: mouth 3 [place] [address] (three) Medical times [place] daily. Armodafinil Yes 250mg Take 250 U nivers (NUVIGIL) 5-12 mg by ity of 250 mg Tab 15:09: mouth [place] [address] daily. Medical Branch cycloSPORIN Yes 1[drp] Place 1 U nivers E 5-12 Drop in ity of (RESTASIS) 15:09: both eyes [place] 0.05 % 27 every 12 Medical drops (twelve) Branch hours. aspirin 81 Yes 81mg Take 81 mg U nivers mg chewable 5-12 by mouth ity of tablet 15:09: daily. [address] Branch atorvastati Yes 10mg Take 10 mg Univers n 10 mg 5-12 by mouth. ity of tablet 15:09: [address] doxepin 10 Yes 10mg Take 10 mg U nivers mg capsule 5-12 by mouth. ity of 15:09: [address] Branch insulin Yes 160U inject 160 Univ ers glargine 5-12 Units ity of U-300 conc 15:09: under the [place] ([facility] skin. Medical SOLOSTAR Branch U-300 INSULIN) 300 unit/mL (1.5 mL) InPn lithium Yes 300mg Take 300 Unive rs carbonate 5-12 mg by ity of 300 mg 15:09: mouth. [place] [address] Medical Branch SERTraline Yes 50mg Take 50 mg U nivers 50 mg 5-12 by mouth. ity of tablet 15:09: [address] Branch celecoxib Yes 200mg Take 200 Uni vers (CELEBREX) 5-12 mg by ity of 200 mg 15:09: mouth 2 [place] [address] (two) Medical times Branch daily. hydroxychlo Yes 200mg Take 200 U nivers roquine 200 5-12 mg by ity of mg tablet 15:09: mouth 2 [place] [address] (two) Medical times Branch daily. cyclobenzap Yes 10mg Take 10 mg Univers rine 10 mg 5-12 by mouth 3 ity of tablet 15:09: (three) [place] [address] times Medical daily. Branch pilocarpine Yes 7.5mg Take 7.5 U nivers 7.5 mg 5-12 mg by ity of tablet 15:09: mouth 3 [place] [address] (three) Medical times Branch daily. Armodafinil Yes 250mg Take 250 U nivers (NUVIGIL) 5-12 mg by ity of 250 mg Tab 15:09: mouth [place] [address] daily. Medical Branch cycloSPORIN Yes 1[drp] Place 1 U nivers E 5-12 Drop in ity of (RESTASIS) 15:09: both eyes [place] 0.05 % 27 every 12 Medical drops (twelve) Branch hours. aspirin 81 2020-0 Yes 81mg Take 81 mg U nivers mg chewable 5-12 by mouth ity of tablet 15:09: daily. [address] Branch atorvastati 0 Yes 10mg Take 10 mg Univers n 10 mg 5-12 by mouth. ity of tablet 15:09: [address] doxepin 10 Yes 10mg Take 10 mg U nivers mg capsule 5-12 by mouth. ity of 15:09: [address] insulin Yes 160U inject 160 Univ ers glargine 5-12 Units ity of U-300 conc 15:09: under the [place] ([place] 27 skin. Medical SOLOSTAR Branch U-300 INSULIN) 300 unit/mL (1.5 mL) InPn lithium Yes 300mg Take 300 Unive rs carbonate 5-12 mg by ity of 300 mg 15:09: mouth. [place] [address] Medical Branch SERTraline 0 Yes 50mg Take 50 mg U nivers 50 mg 5-12 by mouth. ity of tablet 15:09: [address] celecoxib 2020- Yes 200mg Take 200 Uni vers (CELEBREX) 5-12 mg by ity of 200 mg 15:09: mouth 2 [place] [address] (two) Medical times [place] daily. hydroxychlo Yes 200mg Take 200 U nivers roquine 200 5-12 mg by ity of mg tablet 15:09: mouth 2 [place] [address] (two) Medical times Branch daily. cyclobenzap Yes 10mg Take 10 mg Univers rine 10 mg 5-12 by mouth 3 ity of tablet 15:09: (three) [place] [address] times [facility] daily. Branch pilocarpine Yes 7.5mg Take 7.5 U nivers 7.5 mg 5-12 mg by ity of tablet 15:09: mouth 3 [place] [address] (three) Medical times [place] daily. Armodafinil 0 Yes 250mg Take 250 U nivers (NUVIGIL) 5-12 mg by ity of 250 mg Tab 15:09: mouth [place] [address] daily. Medical Branch cycloSPORIN Yes 1[drp] Place 1 U nivers E 5-12 Drop in ity of (RESTASIS) 15:09: both eyes [place] 0.05 % 27 every 12 Medical drops (twelve) Branch hours. aspirin 81 0 Yes 81mg Take 81 mg U nivers mg chewable 5-12 by mouth ity of tablet 15:09: daily. [address] Branch atorvastati Yes 10mg Take 10 mg Univers n 10 mg 5-12 by mouth. ity of tablet 15:09: [address] doxepin 10 Yes 10mg Take 10 mg U nivers mg capsule 5-12 by mouth. ity of 15:09: [address] insulin Yes 160U inject 160 Univ ers glargine 5-12 Units ity of U-300 conc 15:09: under the [place] ([place] 27 skin. Medical SOLOSTAR Branch U-300 INSULIN) 300 unit/mL (1.5 mL) InPn lithium Yes 300mg Take 300 Unive rs carbonate 5-12 mg by ity of 300 mg 15:09: mouth. [place] [address] Medical Branch SERTraline Yes 50mg Take 50 mg U nivers 50 mg 5-12 by mouth. ity of tablet 15:09: [address] celecoxib Yes 200mg Take 200 Uni vers (CELEBREX) 5-12 mg by ity of 200 mg 15:09: mouth 2 [facility] 27 (two) Medical times Branch daily. hydroxychlo Yes 200mg Take 200 U nivers roquine 200 5-12 mg by ity of mg tablet 15:09: mouth 2 [place] [address] (two) Medical times Branch daily. cyclobenzap Yes 10mg Take 10 mg Univers rine 10 mg 5-12 by mouth 3 ity of tablet 15:09: (three) [place] [address] times Medical daily. Branch pilocarpine Yes 7.5mg Take 7.5 U nivers 7.5 mg 5-12 mg by ity of tablet 15:09: mouth 3 [place] [address] (three) Medical times [place] daily. Armodafinil Yes 250mg Take 250 U nivers (NUVIGIL) 5-12 mg by ity of 250 mg Tab 15:09: mouth [place] [address] daily. Medical Branch cycloSPORIN Yes 1[drp] Place 1 U nivers E 5-12 Drop in ity of (RESTASIS) 15:09: both eyes [place] 0.05 % 27 every 12 Medical drops (twelve) Branch hours. aspirin 81 0 Yes 81mg Take 81 mg U nivers mg chewable 5-12 by mouth ity of tablet 15:09: daily. [place] [address] Medical Branch atorvastati Yes 10mg Take 10 mg Univers n 10 mg 5-12 by mouth. ity of tablet 15:09: [address] Branch doxepin 10 Yes 10mg Take 10 mg U nivers mg capsule 5-12 by mouth. ity of 15:09: [address] Branch insulin Yes 160U inject 160 Univ ers glargine 5-12 Units ity of U-300 conc 15:09: under the [place] ([place] 27 skin. Medical SOLOSTAR Branch U-300 INSULIN) 300 unit/mL (1.5 mL) InPn lithium Yes 300mg Take 300 Unive rs carbonate 5-12 mg by ity of 300 mg 15:09: mouth. [place] [address] Medical Branch SERTraline Yes 50mg Take 50 mg U nivers 50 mg 5-12 by mouth. ity of tablet 15:09: [address] Branch celecoxib Yes 200mg Take 200 Uni vers (CELEBREX) 5-12 mg by ity of 200 mg 15:09: mouth 2 [place] capsule 27 (two) Medical times Branch daily. hydroxychlo Yes 200mg Take 200 U nivers roquine 200 5-12 mg by ity of mg tablet 15:09: mouth 2 [place] [address] (two) Medical times [place] daily. cyclobenzap Yes 10mg Take 10 mg Univers rine 10 mg 5-12 by mouth 3 ity of tablet 15:09: (three) [place] [address] times [facility] daily. Branch pilocarpine Yes 7.5mg Take 7.5 U nivers 7.5 mg 5-12 mg by ity of tablet 15:09: mouth 3 [place] [address] (three) Medical times Branch daily. Armodafinil Yes 250mg Take 250 U nivers (NUVIGIL) 5-12 mg by ity of 250 mg Tab 15:09: mouth [place] [address] daily. Medical Branch cycloSPORIN Yes 1[drp] Place 1 U nivers E 5-12 Drop in ity of (RESTASIS) 15:09: both eyes [place] 0.05 % 27 every 12 Medical drops (twelve) Branch hours. aspirin 81 0 Yes 81mg Take 81 mg U nivers mg chewable 5-12 by mouth ity of tablet 15:09: daily. [address] Branch atorvastati Yes 10mg Take 10 mg Univers n 10 mg 5-12 by mouth. ity of tablet 15:09: [address] doxepin 10 Yes 10mg Take 10 mg U nivers mg capsule 5-12 by mouth. ity of 15:09: [address] insulin Yes 160U inject 160 Univ ers glargine 5-12 Units ity of U-300 conc 15:09: under the [place] ([place] 27 skin. Medical SOLOSTAR Branch U-300 INSULIN) 300 unit/mL (1.5 mL) InPn lithium Yes 300mg Take 300 Unive rs carbonate 5-12 mg by ity of 300 mg 15:09: mouth. [place] [address] Medical Branch SERTraline Yes 50mg Take 50 mg U nivers 50 mg 5-12 by mouth. ity of tablet 15:09: [address] celecoxib 2020- Yes 200mg Take 200 Uni vers (CELEBREX) 5-12 mg by ity of 200 mg 15:09: mouth 2 [place] capsule (two) Medical times [place] daily. hydroxychlo Yes 200mg Take 200 U nivers roquine 200 5-12 mg by ity of mg tablet 15:09: mouth 2 [place] [address] (two) Medical times [place] daily. cyclobenzap Yes 10mg Take 10 mg Univers rine 10 mg 5-12 by mouth 3 ity of tablet 15:09: (three) [place] [address] times [facility] daily. Branch pilocarpine Yes 7.5mg Take 7.5 U nivers 7.5 mg 5-12 mg by ity of tablet 15:09: mouth 3 [place] [address] (three) Medical times Branch daily. Armodafinil Yes 250mg Take 250 U nivers (NUVIGIL) 5-12 mg by ity of 250 mg Tab 15:09: mouth [place] [address] daily. Medical Branch cycloSPORIN Yes 1[drp] Place 1 U nivers E 5-12 Drop in ity of (RESTASIS) 15:09: both eyes [place] 0.05 % 27 every 12 Medical drops (twelve) Branch hours. aspirin 81 0 Yes 81mg Take 81 mg U nivers mg chewable 5-12 by mouth ity of tablet 15:09: daily. [address] atorvastati Yes 10mg Take 10 mg Univers n 10 mg 5-12 by mouth. ity of tablet 15:09: [address] doxepin 10 Yes 10mg Take 10 mg U nivers mg capsule 5-12 by mouth. ity of 15:09: [address] insulin Yes 160U inject 160 Univ ers glargine 5-12 Units ity of U-300 conc 15:09: under the [place] ([place] 27 skin. Medical SOLOSTAR Branch U-300 INSULIN) 300 unit/mL (1.5 mL) InPn lithium Yes 300mg Take 300 Unive rs carbonate 5-12 mg by ity of 300 mg 15:09: mouth. [address] Branch SERTraline Yes 50mg Take 50 mg U nivers 50 mg 5-12 by mouth. ity of tablet 15:09: [address] Branch celecoxib Yes 200mg Take 200 Uni vers (CELEBREX) 5-12 mg by ity of 200 mg 15:09: mouth 2 [facility] 27 (two) Medical times [place] daily. hydroxychlo 0 Yes 200mg Take 200 U nivers roquine 200 5-12 mg by ity of mg tablet 15:09: mouth 2 [place] [address] (two) Medical times [place] daily. cyclobenzap Yes 10mg Take 10 mg Univers rine 10 mg 5-12 by mouth 3 ity of tablet 15:09: (three) [place] [address] times Medical daily. Branch pilocarpine Yes 7.5mg Take 7.5 U nivers 7.5 mg 5-12 mg by ity of tablet 15:09: mouth 3 [place] [address] (three) Medical times Branch daily. Armodafinil Yes 250mg Take 250 U nivers (NUVIGIL) 5-12 mg by ity of 250 mg Tab 15:09: mouth [place] [address] daily. Medical Branch cycloSPORIN Yes 1[drp] Place 1 U nivers E 5-12 Drop in ity of (RESTASIS) 15:09: both eyes [place] 0.05 % 27 every 12 Medical drops (twelve) Branch hours. aspirin 81 Yes 81mg Take 81 mg U nivers mg chewable 5-12 by mouth ity of tablet 15:09: daily. [address] Branch atorvastati Yes 10mg Take 10 mg Univers n 10 mg 5-12 by mouth. ity of tablet 15:09: [address] doxepin 10 Yes 10mg Take 10 mg U nivers mg capsule 5-12 by mouth. ity of 15:09: [address] insulin Yes 160U inject 160 Univ ers glargine 5-12 Units ity of U-300 conc 15:09: under the [place] ([place] 27 skin. Medical SOLOSTAR Branch U-300 INSULIN) 300 unit/mL (1.5 mL) InPn lithium Yes 300mg Take 300 Unive rs carbonate 5-12 mg by ity of 300 mg 15:09: mouth. [place] [address] Medical Branch SERTraline Yes 50mg Take 50 mg U nivers 50 mg 5-12 by mouth. ity of tablet 15:09: [address] celecoxib Yes 200mg Take 200 Uni vers (CELEBREX) 5-12 mg by ity of 200 mg 15:09: mouth 2 [place] [address] (two) Medical times Branch daily. hydroxychlo Yes 200mg Take 200 U nivers roquine 200 5-12 mg by ity of mg tablet 15:09: mouth 2 [place] [address] (two) Medical times Branch daily. cyclobenzap Yes 10mg Take 10 mg Univers rine 10 mg 5-12 by mouth 3 ity of tablet 15:09: (three) [place] [address] times Medical daily. Branch pilocarpine Yes 7.5mg Take 7.5 U nivers 7.5 mg 5-12 mg by ity of tablet 15:09: mouth 3 [place] [address] (three) Medical times Branch daily. Armodafinil Yes 250mg Take 250 U nivers (NUVIGIL) 5-12 mg by ity of 250 mg Tab 15:09: mouth [place] [address] daily. Medical Branch cycloSPORIN Yes 1[drp] Place 1 U nivers E 5-12 Drop in ity of (RESTASIS) 15:09: both eyes [place] 0.05 % 27 every 12 Medical drops (twelve) Branch hours. aspirin 81 Yes 81mg Take 81 mg U nivers mg chewable 5-12 by mouth ity of tablet 15:09: daily. [address] atorvastati Yes 10mg Take 10 mg Univers n 10 mg 5-12 by mouth. ity of tablet 15:09: [address] doxepin 10 Yes 10mg Take 10 mg U nivers mg capsule 5-12 by mouth. ity of 15:09: [address] insulin Yes 160U inject 160 Univ ers glargine 5-12 Units ity of U-300 conc 15:09: under the [place] (TOUJEO 27 skin. Medical SOLOSTAR Branch U-300 INSULIN) 300 unit/mL (1.5 mL) InPn lithium Yes 300mg Take 300 Unive rs carbonate 5-12 mg by ity of 300 mg 15:09: mouth. [address] Branch SERTraline Yes 50mg Take 50 mg U nivers 50 mg 5-12 by mouth. ity of tablet 15:09: [address] celecoxib Yes 200mg Take 200 Uni vers (CELEBREX) 5-12 mg by ity of 200 mg 15:09: mouth 2 [place] [address] (two) Medical times Branch daily. hydroxychlo Yes 200mg Take 200 U nivers roquine 200 5-12 mg by ity of mg tablet 15:09: mouth 2 [place] [address] (two) Medical times Branch daily. cyclobenzap Yes 10mg Take 10 mg Univers rine 10 mg 5-12 by mouth 3 ity of tablet 15:09: (three) [place] [address] times Medical daily. Branch pilocarpine Yes 7.5mg Take 7.5 U nivers 7.5 mg 5-12 mg by ity of tablet 15:09: mouth 3 [place] [address] (three) Medical times [place] daily. Armodafinil Yes 250mg Take 250 U nivers (NUVIGIL) 5-12 mg by ity of 250 mg Tab 15:09: mouth [place] [address] daily. Medical Branch cycloSPORIN Yes 1[drp] Place 1 U nivers E 5-12 Drop in ity of (RESTASIS) 15:09: both eyes [place] 0.05 % 27 every 12 Medical drops (twelve) Branch hours. aspirin 81 Yes 81mg Take 81 mg U nivers mg chewable 5-12 by mouth ity of tablet 15:09: daily. [address] atorvastati Yes 10mg Take 10 mg Univers n 10 mg 5-12 by mouth. ity of tablet 15:09: [address] doxepin 10 Yes 10mg Take 10 mg U nivers mg capsule 5-12 by mouth. ity of 15:09: [address] insulin Yes 160U inject 160 Univ ers glargine 5-12 Units ity of U-300 conc 15:09: under the [place] (TOUJEO 27 skin. Medical SOLOSTAR Branch U-300 INSULIN) 300 unit/mL (1.5 mL) InPn lithium Yes 300mg Take 300 Unive rs carbonate 5-12 mg by ity of 300 mg 15:09: mouth. [place] capsule [address] [place] [address] SERTraline Yes 50mg Take 50 mg U nivers 50 mg 5-12 by mouth. ity of tablet 15:09: [address] atorvastati Yes 10mg Take 10 mg Univers n 10 mg 5-12 by mouth. ity of tablet 15:09: [address] atorvastati Yes 10mg Take 10 mg Univers n 10 mg 5-12 by mouth. ity of tablet 15:09: [place] [address] Medical Branch atorvastati 2020-0 Yes 10mg Take 10 mg Univers n 10 mg 5-12 by mouth. ity of tablet 15:09: [place] [address] Medical Branch exenatide 2020-0 Yes 2mg inject 2 [...] 40 Medical injection Branch oxybutynin 2020-0 Yes [id number] 5mg Take 1 U nivers XL 5 mg 24 5-12 tablet by ity of hr tablet 00:00: mouth [place] 00 daily. Medical Branch oxybutynin 2020-0 Yes [id number] 5mg Take 1 U nivers XL 5 mg 24 5-12 tablet by ity of hr tablet 00:00: mouth [place] 00 daily. Medical Branch oxybutynin 2020-0 Yes [id number] 5mg Take 1 U nivers XL 5 mg 24 5-12 tablet by ity of hr tablet 00:00: mouth [place] 00 daily. Medical Branch oxybutynin 2020-0 Yes [id number] 5mg Take 1 U nivers XL 5 mg 24 5-12 tablet by ity of hr tablet 00:00: mouth [place] 00 daily. Medical Branch oxybutynin 2020-0 Yes [id number] 5mg Take 1 U nivers XL 5 mg 24 5-12 tablet by ity of hr tablet 00:00: mouth [place] 00 daily. Medical Branch oxybutynin 2020-0 Yes [id number] 5mg Take 1 U nivers XL 5 mg 24 5-12 tablet by ity of hr tablet 00:00: mouth [place] 00 daily. Medical Branch oxybutynin 2020-0 Yes [id number] 5mg Take 1 U nivers XL 5 mg 24 5-12 tablet by ity of hr tablet 00:00: mouth [place] 00 daily. Medical Branch oxybutynin 2020-0 Yes [id number] 5mg Take 1 U nivers XL 5 mg 24 5-12 tablet by ity of hr tablet 00:00: mouth [place] 00 daily. Medical Branch oxybutynin 2020-0 Yes [id number] 5mg Take 1 U nivers XL 5 mg 24 5-12 tablet by ity of hr tablet 00:00: mouth [place] 00 daily. Medical Branch oxybutynin 2020-0 Yes [id number] 5mg Take 1 U nivers XL 5 mg 24 5-12 tablet by ity of hr tablet 00:00: mouth [place] 00 daily. Medical Branch oxybutynin 2020-0 Yes [id number] 5mg Take 1 U nivers XL 5 mg 24 5-12 tablet by ity of hr tablet 00:00: mouth [place] 00 daily. Medical Branch oxybutynin 2020-0 Yes [id number] 5mg Take 1 U nivers XL 5 mg 24 5-12 tablet by ity of hr tablet 00:00: mouth [place] 00 daily. Medical Branch oxybutynin 2020-0 Yes [id number] 5mg Take 1 U nivers XL 5 mg 24 5-12 tablet by ity of hr tablet 00:00: mouth [place] 00 daily. Medical Branch oxybutynin 2020-0 Yes [id number] 5mg Take 1 U nivers XL 5 mg 24 5-12 tablet by ity of hr tablet 00:00: mouth [place] 00 daily. Medical Branch oxybutynin 2020-0 Yes [id number] 5mg Take 1 U nivers XL 5 mg 24 5-12 tablet by ity of hr tablet 00:00: mouth [place] 00 daily. Medical Branch oxybutynin 0 Yes [id number] 5mg Take 1 U nivers XL 5 [...] tablet 00:00: 00 oxybutynin 2020-0 2021- No [id number] 5mg Take 1 Univers XL 5 mg 24 5-12 -31 tablet by ity of hr tablet 00:00: 00:00 mouth [place] 00 :00 daily. Medical Branch oxybutynin 2020-0 2- No [id number] 5mg Take 1 Univers XL 5 mg 24 5-12 -31 tablet by ity of hr tablet 00:00: 00:00 mouth [place] 00 :00 daily. Medical Branch metformin 2020-0 Yes Univers ER 500 mg 5-10 ity of 24 hr 00:00: [place] tablet 00 Medical Branch metformin 2021-0 Yes Univers ER 500 mg 5-10 ity of 24 hr 00:00: [place] tablet 00 Medical Branch metformin 2021-0 Yes Univers ER 500 mg 5-10 ity of 24 hr 00:00: [place] tablet 00 [facility] metformin 2021-0 Yes Univers ER 500 mg 5-10 ity of 24 hr 00:00: [place] tablet 00 [facility] metformin 2021-0 Yes Univers ER 500 mg 5-10 ity of 24 hr 00:00: [place] tablet 00 [facility] metformin 2021-0 Yes Univers ER 500 mg 5-10 ity of 24 hr 00:00: [place] tablet 00 [facility] metformin 2021-0 Yes Univers ER 500 mg 5-10 ity of 24 hr 00:00: [place] tablet 00 [facility] metformin 2021-0 Yes Univers ER 500 mg 5-10 ity of 24 hr 00:00: [place] tablet 00 [facility] metformin 2021-0 Yes Univers ER 500 mg 5-10 ity of 24 hr 00:00: [place] tablet 00 [facility] metformin 2021-0 Yes Univers ER 500 mg 5-10 ity of 24 hr 00:00: [place] tablet 00 [facility] metformin 2021-0 Yes Univers ER 500 mg 5-10 ity of 24 hr 00:00: [place] tablet 00 [facility] metformin 2021-0 Yes Univers ER 500 mg 5-10 ity of 24 hr 00:00: [place] tablet 00 [facility] metformin 2021-0 Yes Univers ER 500 mg 5-10 ity of 24 hr 00:00: [place] tablet 00 [facility] metformin 2021-0 Yes Univers ER 500 mg 5-10 ity of 24 hr 00:00: [place] tablet 00 [facility] metformin 2021-0 Yes Univers ER 500 mg 5-10 ity of 24 hr 00:00: [place] tablet 00 [facility] metformin 2021-0 Yes Univers ER 500 mg 5-10 ity of 24 hr 00:00: [place] tablet 00 [facility] metformin 2021-0 2022- No Univers ER 500 mg 5-10 08-31 ity of 24 hr 00:00: 00:00 [place] tablet 00 :00 [facility] metformin 2021-0 2022- No Univers ER 500 mg 5-10 08-31 ity of 24 hr 00:00: 00:00 [place] tablet 00 :00 [facility] gabapentin 2021-0 Yes Univers 300 mg 4-23 ity of capsule 00:00: [place] [address] Medical Branch gabapentin 2021-0 Yes Univers 300 mg 4-23 ity of capsule 00:00: [place] [address] Medical Branch gabapentin 2021-0 Yes Univers 300 mg 4-23 ity of capsule 00:00: [place] [address] Medical Branch gabapentin 2021-0 Yes Univers 300 mg 4-23 ity of capsule 00:00: [place] [address] Medical Branch gabapentin 2021-0 Yes Univers 300 mg 4-23 ity of capsule 00:00: [place] [address] Medical Branch gabapentin 2021-0 Yes Univers 300 mg 4-23 ity of capsule 00:00: [place] [address] Medical Branch gabapentin 2021-0 Yes Univers 300 mg 4-23 ity of capsule 00:00: [place] [address] Medical Branch gabapentin 2021-0 Yes Univers 300 mg 4-23 ity of capsule 00:00: [place] [address] Medical Branch gabapentin 2021-0 Yes Univers 300 mg 4-23 ity of capsule 00:00: [place] [address] Medical Branch gabapentin 2021-0 Yes Univers 300 mg 4-23 ity of capsule 00:00: [place] [address] Medical Branch gabapentin 2021-0 Yes Univers 300 mg 4-23 ity of capsule 00:00: [place] [address] Medical Branch gabapentin 2021-0 Yes Univers 300 mg 4-23 ity of capsule 00:00: [place] [address] Medical Branch gabapentin 2021-0 Yes Univers 300 mg 4-23 ity of capsule 00:00: [place] [address] Medical Branch gabapentin 2021-0 Yes Univers 300 mg 4-23 ity of capsule 00:00: [place] [address] Medical Branch gabapentin 2021-0 Yes Univers 300 mg 4-23 ity of capsule 00:00: [place] [address] Medical Branch gabapentin 2021-0 Yes Univers 300 mg 4-23 ity of capsule 00:00: [place] [address] Medical Branch gabapentin 2021-0 2022- No Univer s 300 mg 4-23 08-31 ity of capsule 00:00: 00:00 [place] 00 :00 Medical Branch gabapentin 2021-0 2022- No Univer s 300 mg 4-23 08-31 ity of capsule 00:00: 00:00 [place] 00 :00 Medical Branch lisinopriL- 2021-0 Yes Univer s hydrochloro 4-07 ity of thiazide 00:00: [place] 2012.5 00 Medical per tablet Branch lisinopriL- 2021-0 Yes Univer s hydrochloro 4-07 ity of thiazide 00:00: [place] 20-12.5 mg 00 Medical per tablet Branch lisinopriL- Yes [facility] s hydrochloro 4-07 ity of thiazide 00:00: [place] 20-12.5 mg 00 Medical per tablet Branch lisinopriL- Yes [facility] s hydrochloro 4-07 ity of thiazide 00:00: [place] 20-12.5 mg 00 Medical per tablet Branch lisinopriL- Yes [facility] s hydrochloro 4-07 ity of thiazide 00:00: [place] 20-12.5 mg 00 Medical per tablet Branch lisinopriL- Yes [facility] s hydrochloro 4-07 ity of thiazide 00:00: [place] 20-12.5 mg 00 Medical per tablet Branch lisinopriL- Yes [facility] s hydrochloro 4-07 ity of thiazide 00:00: [place] 20-12.5 mg 00 Medical per tablet Branch lisinopriL- Yes [facility] s hydrochloro 4-07 ity of thiazide 00:00: [place] 20-12.5 mg 00 Medical per tablet Branch lisinopriL- Yes [facility] s hydrochloro 4-07 ity of thiazide 00:00: [place] 20-12.5 mg 00 Medical per tablet Branch lisinopriL- Yes [facility] s hydrochloro 4-07 ity of thiazide 00:00: [place] 20-12.5 mg 00 Medical per tablet Branch lisinopriL- 0 Yes [facility] s hydrochloro 4-07 ity of thiazide 00:00: [place] 20-12.5 mg 00 Medical per tablet Branch lisinopriL- Yes [facility] s hydrochloro 4-07 ity of thiazide 00:00: [place] 20-12.5 mg 00 Medical per tablet Branch lisinopriL- Yes [facility] s hydrochloro 4-07 ity of thiazide 00:00: [place] 20-12.5 mg 00 Medical per tablet Branch lisinopriL- 0 Yes [facility] hydrochloro 4-07 ity of thiazide 00:00: [place] 20-12.5 mg 00 Medical per tablet Branch lisinopriL- Yes Univer s hydrochloro 4-07 ity of thiazide 00:00: [place] 20-12.5 mg 00 Medical per tablet Branch lisinopriL- Yes [facility] hydrochloro 4-07 ity of thiazide 00:00: [place] 20-12.5 mg 00 Medical per tablet Branch lisinopriL- Yes [facility] hydrochloro 4-07 ity of thiazide 00:00: [place] 20-12.5 mg 00 Medical per tablet Branch lisinopriL- Yes [facility] hydrochloro 4-07 ity of thiazide 00:00: [place] 20-12.5 mg 00 Medical per tablet Branch lisinopriL- Yes [facility] hydrochloro 4-07 ity of thiazide 00:00: [place] 20-12.5 mg 00 Medical per tablet Branch thiamine 2020- No 50mg QD Take 0.5 Meth gwen mononitrate 3-27 04-[address] , vit B1, 00:00: 04:59 (50 mg Hospi ta (B-1) 100 00 :00 total) by l mg tablet mouth daily for 30 days. cyclobenzap 2020- No 10mg [id number] Take 10 mg [facility] rine 3-26 03- [id number] by mouth 3 st (FLEXERIL) 21:43: 00:00 [...] a l tablet day. PILOCARPINE Yes 7.5mg Q.[id number] Take 7.5 [facility] HCL ORAL 3-[id number] 21:43: 3D mouth 3 [...] 19 l lithium 300 2020-0 Yes 300mg Q.[id number] Take 300 [facility] MG capsule 3-[id number] 21:43: 3D mouth 3 Hosp[facility] 19 (three) l times a day with meals. metFORMIN 2020-0 Yes 1000mg Q.5D Take 1,000 [facility] XR [...] 30 (thirty) days. insulin 0 Yes 22U Q.[id number] Inject 22 [facility] lispro 3-[id number] (HUMALOG 21:43: 3D under the [...] a l tablet day. PILOCARPINE Yes 7.5mg Q.[id number] Take 7.5 [facility] HCL ORAL 3-[id number] 16:43: 3D mouth 3 Hospita 19 (three) l times a day. LISINOPRIL- 0 Yes 2{tbl} QD Take 2 Me thodi HCTZ 3-[address] 20-12.5 MG 16:43: mouth Hospit a COMBO DOSE 19 daily. l exenatide 0 Yes 2mg Q1W Inject 2 Meth gwen [...] (SINEquan) -[address] 10 MG 16:43: nightly. Hospita capsule 19 l leflunomide 2020-0 Yes 20mg QD Take 20 mg [facility] (ARAVA) 20 -[address] MG tablet 16:43: nightly. Hosp ruiz 19 l atorvastati 0 Yes 10mg QD Take 10 mg [facility] n (LIPITOR) -[address] 10 mg 16:43: nightly. Hospita tablet 19 l lithium 300 2020-0 Yes 300mg Q.[id number] Take 300 [facility] MG capsule - [id number] mg by st 16:43: 3D mouth 3 Hospita 19 (three) l times a day with meals. metFORMIN 2020-0 Yes 1000mg Q.5D Take 1,000 [facility] XR 3-[address] (GLUCOPHAGE 16:43: mouth 2 Hos ileana -XR) 500 mg 19 (two) l 24 hr times a tablet day with meals. sertraline 0 Yes 50mg QD Take 50 mg M [facility]i (ZOLOFT) 50 3-[address] MG tablet 16:43: daily. Hospit a 19 l golimumab 2020-0 Yes Q30D Infuse Method i (SIMPONI 3- into a st ARIA IV) 16:43: venous Hospita 19 catheter l every 30 (thirty) days. insulin 2020-0 Yes 22U Q.[id number] Inject 22 [facility] lispro -[id number] (HUMALOG 16:43: 3D under the [...] emulsion cycloSPORIN Yes 1 drop [facility] 26 into Health (Restasis) 00:00: affected 0.05 % 00 eye ophthalmic emulsion predniSONE 2020- No 20mg QD Take 1 Meth gwen (DELTASONE) 05-05 tablet (20 s t 20 mg 00:00: 04:59 mg total) Hospit a tablet 00 :00 by mouth l daily for 5 days. suvorexant 2020- No QD Take by [facility] (BELSOMRA) 05-04-[address] 20 mg 21:42: [...] 120U QD Inject 120 Met hodi degludec 05-[address] (TRESIBA 21:41: 00:00 under the [...] pirit one) one) 00:00: - [facility] 00 [facility] Kenalog Kenalog 2020-0 No 40mg Common (Triamcinol (Triamcinol 9-22 S pirit one) one) 00:00: - [facility] Kenalog Kenalog 2020-0 No 40mg Common (Triamcinol (Triamcinol 9-22 S pirit one) one) 00:00: - [facility] Kenalog Kenalog 2020-0 No 40mg Common (Triamcinol (Triamcinol 9-22 S pirit one) one) 00:00: - [facility] 00 [facility] Kenalog Kenalog 2020-0 No 40mg Common (Triamcinol (Triamcinol 9-22 S pirit one) one) 00:00: - [facility] 00 [facility] Kenalog Kenalog 2020-0 No 40mg Common (Triamcinol (Triamcinol 9-22 S pirit one) one) 00:00: - [facility] 00 [facility] Kenalog Kenalog 2020-0 No 40mg Common (Triamcinol (Triamcinol 9-22 S pirit one) one) 00:00: - [facility] 00 [facility] Kenalog Kenalog 2020-0 No 40mg Common (Triamcinol (Triamcinol 9-22 S pirit one) one) 00:00: - [facility] 00 [facility] Kenalog Kenalog 2020-0 No 40mg Common (Triamcinol (Triamcinol 9-22 S pirit one) one) 00:00: - [facility] 00 [facility] Kenalog Kenalog 2020-0 No 40mg Common (Triamcinol (Triamcinol 9-22 S pirit one) one) 00:00: - [facility] 00 [facility] Kenalog Kenalog 2020-0 No 40mg Common (Triamcinol (Triamcinol 9-22 S pirit one) one) 00:00: - [facility] 00 [facility] Kenalog Kenalog 2020-0 No 40mg Common (Triamcinol (Triamcinol 9-22 S pirit one) one) 00:00: - [facility] 00 [facility] Kenalog Kenalog 2020-0 No 40mg Common (Triamcinol (Triamcinol 9-22 S pirit one) one) 00:00: - [facility] 00 [facility] Kenalog Kenalog 2020-0 No 40mg Common (Triamcinol (Triamcinol 9-22 S pirit one) one) 00:00: - [facility] 00 [facility] Kenalog Kenalog 2020-0 No 40mg Common (Triamcinol (Triamcinol 9-22 S pirit one) one) 00:00: - [facility] 00 [facility] Amoxicillin Amoxicillin 2019-0 2020- No [facility]iano 1 capsule Common 10-26 [facility] 00:00: 00:00 - [facility] 00 :00 [facility] atorvastati 2020-0 Yes 1 tablet [facility] n (Lipitor) 8-20 Health 10 MG 00:00: tablet 00 atorvastati 2020-0 Yes 1 tablet [facility] (Lipitor) 8-20 Health 10 MG 00:00: tablet 00 Furosemide Furosemide 2018-0 Yes [facility] 0.5 tablet Common 06-10 [facility] 00:00: - [facility] 00 [facility] Furosemide Furosemide 2018-0 No .5{tabl QD Furosemide 20 MG 20 MG 5-01 et} 20 MG 00:00: 00 Furosemide Furosemide No .5{tabl QD Furosemide 20 MG 20 MG 5-01 et} 20 MG 00:00: 00 Furosemide Furosemide 0 No .5{tabl QD Furosemide 20 MG 20 [...] et} 20 MG 00:00: 00 Furosemide Furosemide 20190 No .5{tabl QD Furosemide 20 MG 20 MG 5-01 et} 20 MG 00:00: 00 Furosemide Furosemide 2019-0 No .5{tabl QD Furosemide 20 MG 20 MG 5-01 et} 20 MG 00:00: 00 Furosemide Furosemide 20190 No .5{tabl QD Furosemide 20 MG 20 [...] et} 20 MG 00:00: 00 Furosemide Furosemide 0 No .5{tabl QD Furosemide 20 MG 20 MG 5- et} 20 MG 00:00: 00 Furosemide Furosemide 0 No .5{tabl QD Furosemide 20 MG 20 MG 5-01 et} 20 MG 00:00: 00 Furosemide Furosemide 2018-0 No .5{tabl QD Furosemide 20 MG 20 MG 5-01 et} 20 MG 00:00: 00 Hydrocodone Hydrocodone 2017-02 Yes [place]iano 1 tablet Common -Acetaminop -Acetaminop 0-01 [facility] needed [facility] hen hen 00:00: - [facility] 00 [facility] HYDROcodone HYDROcodone 2017-02 No 1{table BID HYDROcodon -Acetaminop -Acetaminop 0-01 t_as_ne e-Acetamin hen 5-325 hen 5-325 00:00: eded} ophen MG MG 00 5-325 MG HYDROcodone HYDROcodone 2017-02 No 1{table BID HYDROcodon -Acetaminop -Acetaminop 0-01 t_as_ne e-Acetamin hen 5-325 hen 5-325 00:00: eded} ophen MG MG 00 5-325 MG HYDROcodone HYDROcodone 2017- No 1{table BID HYDROcodon -Acetaminop -Acetaminop 0-01 [...] MG MG 00 5-325 MG HYDROcodone HYDROcodone 2017- No 1{table BID HYDROcodon -Acetaminop -Acetaminop 0-01 t_as_ne e-Acetamin hen 5-325 hen 5-325 00:00: eded} ophen MG MG 00 5-325 MG Tolterodine Tolterodine 2018-0 Yes SHEFALI 1 PO QD [facility] Tartrate [...] per tablet (twelve) Branc h hours. sulfamethox Yes 1{tbl} Take 1 Un emanuel azole-trime 7-31 tablet by ity of thoprim 00:00: mouth [place] 800-160 mg 00 every 12 Medic al per tablet (twelve) Branc h hours. sulfamethox 2016-2021- No 1{tbl} Take 1 U nivers azole-trime -10 10- tablet by it y of thoprim 00:00: 00:00 mouth [place] 800-160 mg 00 :00 every 12 Medic al per tablet (twelve) Branc h hours. sulfamethox 2016-2021- No 1{tbl} Take 1 U nivers azole-trime -10-10 tablet by it y of thoprim 00:00: 00:00 mouth [place] 800-160 mg 00 :00 every 12 Medic al per tablet (twelve) Branc h hours. simvastatin Yes 40mg Take 40 mg Univers 40 mg 6-15 by mouth ity of tablet 18:18: at [place] [address] bedtime. Medical Branch traZODONE Yes 100mg Take Univers 100 mg 6-15 100-200 mg ity of tablet 18:18: by mouth [place] [address] at bedtime Medical as needed Branch for Insomnia. ARIPiprazol Yes 20mg Take 20 mg Univers e (ABILIFY) 6-15 by mouth ity of 20 mg 18:18: at [place] [address] bedtime. Medical Branch suvorexant Yes 20mg Take 20 mg U nivers (BELSOMRA) 6-15 by mouth ity o f 20 mg Tab 18:18: at [place] [address] bedtime. Medical Branch prednisoLON 2017 Yes 1[drp] 1 Drop Un emanuel E acetate 1 6-15 every 2 ity o f % 18:18: (two) [place] ophthalmic 54 hours as Medic al suspension needed for Bra nch drops Itching. foLIC acid Yes 2mg Take 2 mg Un emanuel 1 mg tablet 6-15 by mouth ity of 18:18: daily. [place] [address] Medical Branch simvastatin 2016- Yes 40mg Take 40 mg Univers 40 mg 6-15 by mouth ity of tablet 18:18: at [place] [address] bedtime. Medical Branch traZODONE 2017-0 Yes 100mg Take Univers 100 mg 6-15 100-200 mg ity of tablet 18:18: by mouth [place] [address] at bedtime Medical as needed Branch for Insomnia. ARIPiprazol 2017-0 Yes 20mg Take 20 mg Univers e (ABILIFY) 6-15 by mouth ity of 20 mg 18:18: at [place] [address] bedtime. Medical Branch suvorexant 20170 Yes 20mg Take 20 mg U nivers (BELSOMRA) 6-15 by mouth ity o f 20 mg Tab 18:18: at [place] [address] bedtime. Medical Branch prednisoLON 2017-0 Yes 1[drp] 1 Drop Un emanuel E acetate 1 6-15 every 2 ity o f % 18:18: (two) [place] ophthalmic 54 hours as Medic al suspension needed for Bra nch drops Itching. foLIC acid 2017 Yes 2mg Take 2 mg Un emanuel 1 mg tablet 6-15 by mouth ity of 18:18: daily. [place] [address] Medical Branch simvastatin 2017-0 Yes 40mg Take 40 mg Univers 40 mg 6-15 by mouth ity of tablet 18:18: at [place] [address] bedtime. Medical Branch traZODONE 20170 Yes 100mg Take Univers 100 mg 6-15 100-200 mg ity of tablet 18:18: by mouth [place] [address] at bedtime Medical as needed Branch for Insomnia. ARIPiprazol 20170 Yes 20mg Take 20 mg Univers e (ABILIFY) 6-15 by mouth ity of 20 mg 18:18: at [place] [address] bedtime. Medical Branch suvorexant 20170 Yes 20mg Take 20 mg U nivers (BELSOMRA) 6-15 by mouth ity o f 20 mg Tab 18:18: at [place] [address] bedtime. Medical Branch prednisoLON 2017-0 Yes 1[drp] 1 Drop Un emanuel E acetate 1 6-15 every 2 ity o f % 18:18: (two) [place] ophthalmic 54 hours as Medic al suspension needed for Bra nch drops Itching. foLIC acid 2017-0 Yes 2mg Take 2 mg Un emanuel 1 mg tablet 6-15 by mouth ity of 18:18: daily. [place] [address] Medical Branch simvastatin 2017-0 Yes 40mg Take 40 mg Univers 40 mg 6-15 by mouth ity of tablet 18:18: at [place] [address] bedtime. Medical Branch traZODONE 2017-0 Yes 100mg Take Univers 100 mg 6-15 100-200 mg ity of tablet 18:18: by mouth [place] [address] at bedtime Medical as needed Branch for Insomnia. ARIPiprazol 2017-0 Yes 20mg Take 20 mg Univers e (ABILIFY) 6-15 by mouth ity of 20 mg 18:18: at [place] [address] bedtime. Medical Branch suvorexant 20170 Yes 20mg Take 20 mg U nivers (BELSOMRA) 6-15 by mouth ity o f 20 mg Tab 18:18: at [place] [address] bedtime. Medical Branch prednisoLON 2017-0 Yes 1[drp] 1 Drop Un emanuel E acetate 1 6-15 every 2 ity o f % 18:18: (two) [place] ophthalmic 54 hours as Medic al suspension needed for Bra nch drops Itching. foLIC acid 20170 Yes 2mg Take 2 mg Un emanuel 1 mg tablet 6-15 by mouth ity of 18:18: daily. [place] [address] Medical Branch simvastatin 2017-0 Yes 40mg Take 40 mg Univers 40 mg 6-15 by mouth ity of tablet 18:18: at [place] [address] bedtime. Medical Branch traZODONE 20170 Yes 100mg Take Univers 100 mg 6-15 100-200 mg ity of tablet 18:18: by mouth [place] [address] at bedtime Medical as needed Branch for Insomnia. ARIPiprazol 20170 Yes 20mg Take 20 mg Univers e (ABILIFY) 6-15 by mouth ity of 20 mg 18:18: at [place] [address] bedtime. Medical Branch suvorexant 20170 Yes 20mg Take 20 mg U nivers (BELSOMRA) 6-15 by mouth ity o f 20 mg Tab 18:18: at [place] [address] bedtime. Medical Branch prednisoLON 2017-0 Yes 1[drp] 1 Drop Un emanuel E acetate 1 6-15 every 2 ity o f % 18:18: (two) [place] ophthalmic 54 hours as Medic al suspension needed for Bra nch drops Itching. foLIC acid 2017-0 Yes 2mg Take 2 mg Un emanuel 1 mg tablet 6-15 by mouth ity of 18:18: daily. [place] [address] Medical Branch simvastatin 2017-0 Yes 40mg Take 40 mg Univers 40 mg 6-15 by mouth ity of tablet 18:18: at [place] [address] bedtime. Medical Branch traZODONE 2017-0 Yes 100mg Take Univers 100 mg 6-15 100-200 mg ity of tablet 18:18: by mouth [place] [address] at bedtime Medical as needed Branch for Insomnia. ARIPiprazol 2017-0 Yes 20mg Take 20 mg Univers e (ABILIFY) 6-15 by mouth ity of 20 mg 18:18: at [place] [address] bedtime. Medical Branch suvorexant 2017-0 Yes 20mg Take 20 mg U nivers (BELSOMRA) 6-15 by mouth ity o f 20 mg Tab 18:18: at [place] [address] bedtime. [facility] prednisoLON 2017-0 Yes 1[drp] 1 Drop Un emanuel E acetate 1 6-15 every 2 ity o f % 18:18: (two) [place] [facility] 54 hours as Medic al suspension needed for Bra nch drops Itching. foLIC acid 2017-0 Yes 2mg Take 2 mg Un emanuel 1 mg tablet 6-15 by mouth ity of 18:18: daily. [place] [address] [facility] foLIC acid 2017-0 Yes 2mg Take 2 mg Un emanuel 1 mg tablet 6-15 by mouth ity of 13:18: daily. [place] [address] [facility] simvastatin 2017-0 Yes 40mg Take 40 mg [facility] 40 mg 6-15 by mouth ity of tablet 13:18: at [place] [address] bedtime. [facility] traZODONE 2017-0 Yes 100mg Take [facility] 100 mg 6-15 100-200 mg ity of tablet 13:18: by mouth [place] [address] at bedtime Medical as needed Branch for Insomnia. ARIPiprazol 2017-0 Yes 20mg Take 20 mg Univers e (ABILIFY) 6-15 by mouth ity of 20 mg 13:18: at [place] [address] bedtime. [facility] suvorexant 2017-0 Yes 20mg Take 20 mg U nivers (BELSOMRA) 6-15 by mouth ity o f 20 mg Tab 13:18: at [place] [address] bedtime. [facility] prednisoLON 2017-0 Yes 1[drp] 1 Drop Un emanuel E acetate 1 6-15 every 2 ity o f % 13:18: (two) [place] [facility] 54 hours as Medic al suspension needed for Bra nch drops Itching. foLIC acid 2017-0 Yes 2mg Take 2 mg Un emanuel 1 mg tablet 6-15 by mouth ity of 13:18: daily. [place] [address] [facility] simvastatin 2017-0 Yes 40mg Take 40 mg [facility] 40 mg 6-15 by mouth ity of tablet 13:18: at [place] [address] bedtime. [facility] traZODONE 2017-0 Yes 100mg Take [facility] 100 mg 6-15 100-200 mg ity of tablet 13:18: by mouth [place] [address] at bedtime Medical as needed Branch for Insomnia. ARIPiprazol 2017-0 Yes 20mg Take 20 mg [facility] e (ABILIFY) 6-15 by mouth ity of 20 mg 13:18: at [place] [address] bedtime. [facility] suvorexant 2017-0 Yes 20mg Take 20 mg U nivers (BELSOMRA) 6-15 by mouth ity o f 20 mg Tab 13:18: at [place] [address] bedtime. [facility] prednisoLON 2017-0 Yes 1[drp] 1 Drop Un emaunel E acetate 1 6-15 every 2 ity o f % 13:18: (two) [place] [facility] 54 hours as Medic al suspension needed for Bra nch drops Itching. foLIC acid 20170 Yes 2mg Take 2 mg Un emanuel 1 mg tablet 6-15 by mouth ity of 13:18: daily. [place] [address] [facility] simvastatin 2017-0 Yes 40mg Take 40 mg [facility] 40 mg 6-15 by mouth ity of tablet 13:18: at [place] [address] bedtime. [facility] traZODONE [id number] Yes 100mg Take [facility] 100 mg 6-15 100-200 mg ity of tablet 13:18: by mouth [place] [address] at bedtime Medical as needed Branch for Insomnia. ARIPiprazol 2017-0 Yes 20mg Take 20 mg [facility] e (ABILIFY) 6-15 by mouth ity of 20 mg 13:18: at [place] [address] bedtime. [facility] suvorexant 2017-0 Yes 20mg Take 20 mg U nivers (BELSOMRA) 6-15 by mouth ity o f 20 mg Tab 13:18: at [place] [address] bedtime. [facility] prednisoLON 2017-0 Yes 1[drp] 1 Drop Un emanuel E acetate 1 6-15 every 2 ity o f % 13:18: (two) [place] [facility] 54 hours as Medic al suspension needed for Bra nch drops Itching. foLIC acid 2017-0 Yes 2mg Take 2 mg Un emanuel 1 mg tablet 6-15 by mouth ity of 13:18: daily. [place] [address] [facility] simvastatin 2017-0 Yes 40mg Take 40 mg [facility] 40 mg 6-15 by mouth ity of tablet 13:18: at [place] [address] bedtime. [facility] traZODONE 2017-0 Yes 100mg Take [facility] 100 mg 6-15 100-200 mg ity of tablet 13:18: by mouth [place] [address] at bedtime Medical as needed Branch for Insomnia. ARIPiprazol 2017-0 Yes 20mg Take 20 mg [facility] e (ABILIFY) 6-15 by mouth ity of 20 mg 13:18: at [place] [address] bedtime. [facility] suvorexant 2017-0 Yes 20mg Take 20 mg U nivers (BELSOMRA) 6-15 by mouth ity o f 20 mg Tab 13:18: at [place] [address] bedtime. [facility] prednisoLON 2017-0 Yes 1[drp] 1 Drop Un emanuel E acetate 1 6-15 every 2 ity o f % 13:18: (two) [place] [facility] 54 hours as Medic al suspension needed for Bra nch drops Itching. foLIC acid 20170 Yes 2mg Take 2 mg Un emanuel 1 mg tablet 6-15 by mouth ity of 13:18: daily. [place] [address] [facility] simvastatin 2017-0 Yes 40mg Take 40 mg [facility] 40 mg 6-15 by mouth ity of tablet 13:18: at [place] [address] bedtime. [facility] traZODONE 2017-0 Yes 100mg Take [facility] 100 mg 6-15 100-200 mg ity of tablet 13:18: by mouth [place] [address] at bedtime Medical as needed Branch for Insomnia. ARIPiprazol 2017-0 Yes 20mg Take 20 mg [facility] e (ABILIFY) 6-15 by mouth ity of 20 mg 13:18: at [place] [address] bedtime. [facility] suvorexant 2017-0 Yes 20mg Take 20 mg U nivers (BELSOMRA) 6-15 by mouth ity o f 20 mg Tab 13:18: at [place] [address] bedtime. [facility] prednisoLON 2017-0 Yes 1[drp] 1 Drop Un emanuel E acetate 1 6-15 every 2 ity o f % 13:18: (two) [place] [facility] 54 hours as Medic al suspension needed for Bra nch drops Itching. foLIC acid 2017-0 Yes 2mg Take 2 mg Un emanuel 1 mg tablet 6-15 by mouth ity of 13:18: daily. [place] [address] [facility] simvastatin 2017-0 Yes 40mg Take 40 mg [facility] 40 mg 6-15 by mouth ity of tablet 13:18: at [place] [address] bedtime. [facility] traZODONE 2017-0 Yes 100mg Take [facility] 100 mg 6-15 100-200 mg ity of tablet 13:18: by mouth [place] [address] at bedtime Medical as needed Branch for Insomnia. ARIPiprazol 2017-0 Yes 20mg Take 20 mg [facility] e (ABILIFY) 6-15 by mouth ity of 20 mg 13:18: at [place] [address] bedtime. [facility] suvorexant 2017-0 Yes 20mg Take 20 mg U nivers (BELSOMRA) 6-15 by mouth ity o f 20 mg Tab 13:18: at [place] [address] bedtime. [facility] prednisoLON 2017-0 Yes 1[drp] 1 Drop Un emanuel E acetate 1 6-15 every 2 ity o f % 13:18: (two) [place] [facility] 54 hours as Medic al suspension needed for Bra nch drops Itching. foLIC acid 2017-0 Yes 2mg Take 2 mg Un emanuel 1 mg tablet 6-15 by mouth ity of 13:18: daily. [place] [address] [facility] simvastatin 2017-0 Yes 40mg Take 40 mg [facility] 40 mg 6-15 by mouth ity of tablet 13:18: at [place] [address] bedtime. [facility] traZODONE 2017-0 Yes 100mg Take [facility] 100 mg 6-15 100-200 mg ity of tablet 13:18: by mouth [place] [address] at bedtime Medical as needed Branch for Insomnia. ARIPiprazol 2017-0 Yes 20mg Take 20 mg [facility] e (ABILIFY) 6-15 by mouth ity of 20 mg 13:18: at [place] [address] bedtime. [facility] suvorexant 2017-0 Yes 20mg Take 20 mg U nivers (BELSOMRA) 6-15 by mouth ity o f 20 mg Tab 13:18: at [place] [address] bedtime. [facility] prednisoLON 2017-0 Yes 1[drp] 1 Drop Un emanuel E acetate 1 6-15 every 2 ity o f % 13:18: (two) [place] [facility] 54 hours as Medic al suspension needed for Bra nch drops Itching. foLIC acid 2017-0 Yes 2mg Take 2 mg Un emanuel 1 mg tablet 6-15 by mouth ity of 13:18: daily. [place] [address] [facility] simvastatin 2017-0 Yes 40mg Take 40 mg [facility] 40 mg 6-15 by mouth ity of tablet 13:18: at [place] [address] bedtime. [facility] traZODONE 2017-0 Yes 100mg Take [facility] 100 mg 6-15 100-200 mg ity of tablet 13:18: by mouth [place] [address] at bedtime Medical as needed Branch for Insomnia. ARIPiprazol 2017-0 Yes 20mg Take 20 mg [facility] e (ABILIFY) 6-15 by mouth ity of 20 mg 13:18: at [place] [address] bedtime. [facility] suvorexant 2017-0 Yes 20mg Take 20 mg U nivers (BELSOMRA) 6-15 by mouth ity o f 20 mg Tab 13:18: at [place] [address] bedtime. [facility] prednisoLON 2017-0 Yes 1[drp] 1 Drop Un emanuel E acetate 1 6-15 every 2 ity o f % 13:18: (two) [place] [facility] 54 hours as Medic al suspension needed for Bra nch drops Itching. foLIC acid 2017-0 Yes 2mg Take 2 mg Un emanuel 1 mg tablet 6-15 by mouth ity of 13:18: daily. [place] [address] [facility] simvastatin 2017-0 Yes 40mg Take 40 mg [facility] 40 mg 6-15 by mouth ity of tablet 13:18: at [place] [address] bedtime. [facility] traZODONE 2017-0 Yes 100mg Take [facility] 100 mg 6-15 100-200 mg ity of tablet 13:18: by mouth [place] [address] at bedtime Medical as needed Branch for Insomnia. ARIPiprazol 2017-0 Yes 20mg Take 20 mg [facility] e (ABILIFY) 6-15 by mouth ity of 20 mg 13:18: at [place] [address] bedtime. [facility] suvorexant 2017-0 Yes 20mg Take 20 mg U nivers (BELSOMRA) 6-15 by mouth ity o f 20 mg Tab 13:18: at [place] [address] bedtime. [facility] prednisoLON 2017-0 Yes 1[drp] 1 Drop Un emanuel E acetate 1 6-15 every 2 ity o f % 13:18: (two) [place] [facility] 54 hours as Medic al suspension needed for Bra nch drops Itching. foLIC acid 2017 Yes 2mg Take 2 mg Un emanuel 1 mg tablet 6-15 by mouth ity of 13:18: daily. [place] [address] [facility] Branch simvastatin 2017- Yes 40mg Take 40 mg [facility] 40 mg 6-15 by mouth ity of tablet 13:18: at [place] [address] bedtime. [facility] traZODONE 2017 Yes 100mg Take [facility] 100 mg 6-15 100-200 mg ity of tablet 13:18: by mouth [place] [address] at bedtime Medical as needed Branch for Insomnia. ARIPiprazol Yes 20mg Take 20 mg [facility] e (ABILIFY) 6-15 by mouth ity of 20 mg 13:18: at [place] [address] bedtime. [facility] suvorexant Yes 20mg Take 20 mg U nivers (BELSOMRA) 6-15 by mouth ity o f 20 mg Tab 13:18: at [place] [address] bedtime. [facility] prednisoLON Yes 1[drp] 1 Drop Un emanuel E acetate 1 6-15 every 2 ity o f % 13:18: (two) [place] [facility] 54 hours as Medic al suspension needed for Bra nch drops Itching. Zetia No Notes: Memoria 08-10 (Same as: l 14:00: Barbara) [place] Dexilant 2015-0 No 60 mg, [facility]oria 08-10 Route: PO, l 14:00: Drug form: [place] DRC, Daily, Dosing Weight 134.5, kg, Start date: 08/11/15 9:00:00 CDT, Duration: 30 day, Stop date: 09/09/15 9:00:00 CDT Nuvigil 2015-0 No 250 mg, [facility] 08-10 Route: PO, l 14:00: Drug form: [place] TAB, Daily, Dosing Weight 134.5, kg, Start [...] Memoria 08-10 (Same as: l 14:00: Zetia) [place] Dexilant 2016-0 No 60 mg, Memoria 08-10 Route: PO, l 14:00: Drug form: [place] 00 DRC, Daily, Dosing Weight 134.5, kg, [...] 7- Route: PO, l 14:00: Drug form: [place] 00 TAB, Daily, Dosing Weight 134.5, kg, [...] Memoria 08-10 (Same as: l 14:00: Zetia) [place] 00 Dexilant 2015-0 No 60 mg, [facility] 08-10 Route: PO, l 14:00: Drug form: [place] 00 DRC, Daily, Dosing Weight 134.5, kg, Start date: 08/11/15 9:00:00 CDT, Duration: 30 day, Stop date: 09/09/15 9:00:00 CDT Nuvigil 2015-0 No 250 mg, [facility] 08-10 Route: PO, l 14:00: Drug form: [place] 00 TAB, Daily, Dosing Weight 134.5, kg, [...] 08-10 Route: PO, l 14:00: Drug form: [place] 00 TAB, Daily, Dosing Weight 134.5, kg, Start date: 08/11/15 9:00:00 CDT, Duration: 30 day, Stop date: 09/09/15 9:00:00 CDT Abilify 2015-0 No 20 mg, Mem[facility] 08-10 Route: PO, l 14:00: Drug form: [place] 00 TAB, Daily, Dosing Weight 134.5, kg, Start date: 08/11/15 9:00:00 CDT, Duration: 30 day, Stop date: 09/09/15 9:00:00 CDT Deplin 2015-0 No 15 mg, Memoria 7- Route: PO, l 14:00: Drug form: [place] [...] Memoria 08-10 (Same as: l 14:: Zetia) Dexilant No 60 mg, [facility] 08-10 Route: PO, l 14:00: Drug form: [place] 00 DRC, Daily, Dosing Weight 134.5, kg, Start date: 08/11/15 9:00:00 CDT, Duration: 30 day, Stop date: 09/09/15 9:00:00 CDT Nuvigil 2015-0 No 250 mg, [facility] 08-10 Route: PO, l 14:00: Drug form: [place] 00 TAB, Daily, Dosing Weight 134.5, kg, Start date: 08/11/15 9:00:00 CDT, Duration: 30 day, Stop date: 09/09/15 9:00:00 CDT Abilify 2015-0 No 20 mg, [facility] 08-10 Route: PO, l 14:00: Drug form: [place] 00 TAB, Daily, Dosing Weight 134.5, kg, [...] Notes: [facility] 08-10 (Same as: l 14:00: Gurpreettia) Dexilant 2016-0 No 60 mg, [facility] 08-10 Route: PO, l 14:00: Drug form: [place] 00 DRC, Daily, Dosing Weight 134.5, kg, [...] 08-10 Route: PO, l 14:00: Drug form: [place] 00 CAP, Daily, Dosing Weight 134.5, kg, [...] Memoria 08-10 (Same as: l 14:00: Zetia) [place] 00 Dexilant 2015-0 No 60 mg, Memoria [...] 08-10 Route: PO, l 14:00: Drug form: [place] 00 DRC, Daily, Dosing Weight 134.5, kg, Start date: 08/11/15 9:00:00 CDT, Duration: 30 day, Stop date: 09/09/15 9:00:00 CDT Nuvigil 2016-0 No 250 mg, [facility] 08-10 Route: PO, l 14:00: Drug form: [place] 00 TAB, Daily, Dosing Weight 134.5, kg, Start date: 08/11/15 9:00:00 CDT, Duration: 30 day, Stop date: 09/09/15 9:00:00 CDT Abilify 2016-0 No 20 mg, [facility] 7- Route: PO, l 14:00: Drug form: [place] 00 TAB, Daily, Dosing Weight 134.5, kg, [...] 6-30 Route: PO, l 22:00: Drug form: [place] 00 TAB, BID, Dosing Weight 134.5, kg, Start date: 08/10/15 17:00:00 CDT Savella 2016-0 No 50 mg, [facility] 6-30 Route: PO, l 22:00: Drug form: [place] 00 TAB, BID, Dosing Weight 134.5, kg, Start date: 08/10/15 17:00:00 CDT Savella 2016-0 No 50 mg, [facility] 6-30 Route: PO, l 22:00: Drug form: [place] 00 TAB, BID, Dosing Weight 134.5, kg, Start date: 08/10/15 17:00:00 CDT Savella 2016-0 No 50 mg, [facility] 6-30 Route: PO, l 22:00: Drug form: [place] 00 TAB, BID, Dosing Weight 134.5, kg, Start date: 08/10/15 17:00:00 CDT Ketorolac 2016-0 No 4 days Memor ia 6-30 l 17:00: MEDICATION [place] 00 WASTE Product Size: 30 mg Product Wasted: _15__ mg Ketorolac 2016-0 No 4 days Memor ia 6-30 l 17:00: MEDICATION [place] 00 WASTE Product Size: 30 mg Product Wasted: _15__ mg Ketorolac 2016-0 No 4 days Memor ia 6-30 l 17:00: MEDICATION [place] 00 WASTE Product Size: 30 mg Product Wasted: _15__ mg Ketorolac 2016-0 No 4 days Memor ia 6-30 l 17:00: MEDICATION [place] WASTE Product Size: 30 mg Product Wasted: _15__ mg Ketorolac 2016-0 No 4 days Memor ia 6-30 l 17:00: MEDICATION [place] WASTE Product Size: 30 mg Product Wasted: _15__ mg Ketorolac 2016-0 No 4 days Memor ia 6-30 l 17:00: MEDICATION [place] 00 WASTE Product Size: 30 mg Product Wasted: _15__ mg Ketorolac No 4 days Memor ia 6-30 l 17:00: MEDICATION [place] 00 WASTE Product Size: 30 mg Product Wasted: _15__ mg Ketorolac No 4 days Memor ia 630 l 17:00: MEDICATION [place] 00 WASTE Product Size: 30 mg Product [...] Memoria l 6-30 RT l 16:29: DOCUMENTAT [place] 00 ION (Same as:Xopenex ) Non-Formul george Naloxone No Notes: Memoria 630 Same as l 16:29: Narcan Meperidine No Notes: Memor ia 30 (Same as: l 16:29: Demerol) "Use Precaution in Elderly, Seizure disorders, and Renal impairment " Promethazin No Notes: Do M emoria e 30 not give l 16:29: IV push. (Same as: Phenergan) Dexamethaso No Notes: Alon[place] summer ne 30 Concentrat l 16:29: ion: [place] 4mg/ml Ondansetron No Notes: [place] summer 6-30 (Same as: l 16:29: Zofran) MEDICATION WASTE Product Size: 4 mg Product Wasted: ___ mg Diphenhydra No Notes: Alon[place] summer mine 30 (Same as: l 16:29: Benadryl) Albuterol No Notes: SEE Me moria 0.83 MG/ML 630 RT l Inhalant 16:29: DOCUMENTAT Her brito [...] as: l / 16:29: Duoneb) Ipratropium 00 [place] 0.167 MG/ML Inhalant Solution [DuoNeb] celecoxib Yes Notes: Memori a -30 NSAID. l 16:29: Please [place] 00 check indication . Not for seizure. (Same As: CeleBREX) 72 HR Yes Notes: [facility] Scopolamine 08-09 Change l 0.0139 16:29: patch [place] MG/HR 00 every 72 Transdermal hours Patch [...] as: l / 16:29: Duoneb) Ipratropium 00 [place] 0.167 MG/ML Inhalant Solution [DuoNeb] celecoxib Yes [...] ia 6-30 (Same as: l 16:29: Romazicon) [place] 00 Calcium No 1,000 mL, Memor ia Chloride 6-30 Rate: 125 l 0.0014 16:29: ml/hr, [place] MEQ/ML / 00 Infuse Potassium over: 8 [...] ate -30 (Same as: l 16:29: Robinul) [place] 00 Phenylephri No Notes: Al[place] summer ne 6-30 Same as: l 16:29: Erik-Syneph [place] 00 rine Albuterol No Notes: Memori a 0.833 MG/ML -30 (Same as: l / 16:29: Duoneb) Ipratropium 00 [place] 0.167 MG/ML Inhalant Solution [DuoNeb] celecoxib Yes Notes: Memori a 6-30 NSAID. l 16:29: Please [place] 00 check indication . Not for seizure. (Same As: CeleBREX) 72 HR Yes Notes: [facility] Scopolamine -30 Change l 0.0139 16:29: patch [place] MG/HR 00 every 72 Transdermal hours Patch (Same as: Transderm- Scop) Midazolam No Notes: Memori a 6-30 (Same as: l 16:29: Versed) MEDICATION WASTE Product Size: 2 mg Product Wasted: _1__ mg Ephedrine No Notes: [facility]ori a 6-30 (Same as: l 16:29: ePHEDrine [place] Sulfate) Flumazenil No Notes: Memor ia 6-30 (Same as: l 16:29: Romazicon) [place] 00 Calcium No 1,000 mL, Memor ia Chloride 6-30 Rate: 125 l 0.0014 16:29: ml/hr, [place] MEQ/ML / 00 Infuse Potassium over: 8 Chloride hr, Route: 0.004 IV, Dosing MEQ/ML / Weight Sodium 134.5 kg, Chloride Total 0.103 Volume: MEQ/ML / 1,000, Sodium Start Lactate date: 0.028 06/30/16 MEQ/ML 11:29:00 Injectable CDT, Solution Duration: 30 [...] Memoria l 6-30 RT l 16:29: DOCUMENTAT [place] 00 ION (Same as:Xopenex ) Non-Formul george [...] summer ne 6-30 Concentrat l 16:29: ion: [place] 00 4mg/ml Ondansetron No Notes: Alonzo summer [...] as: l / 16:29: Duoneb) Ipratropium 00 [place] 0.167 MG/ML Inhalant Solution [DuoNeb] celecoxib Yes Notes: Memori a 6-30 NSAID. l 16:29: Please check indication . Not for seizure. (Same As: CeleBREX) 72 HR Yes Notes: [facility] Scopolamine 6-30 Change l 0.0139 16:29: patch [place] MG/HR 00 every 72 Transdermal hours Patch (Same as: Transderm- Scop) Midazolam No Notes: Memori a 6-30 (Same as: l 16:29: Versed) MEDICATION WASTE Product Size: 2 mg Product Wasted: _1__ mg Ephedrine No Notes: [facility]ori a 6-30 (Same as: l 16:29: ePHEDrine [place] 00 Sulfate) Flumazenil No Notes: Memor ia 6-30 (Same as: l 16:29: Romazicon) [place] 00 Calcium No 1,000 mL, Memor ia [...] Notes: [facility]oria 6-30 (Same l 16:29: as:MORPhin [place] 00 e Sulfate) Fentanyl No Notes: Memoria [...] Promethazin No Notes: Do M emoria e 30 not give l 16:29: IV push. (Same as: Phenergan) Dexamethaso No Notes: Alon[place] summer ne 30 Concentrat l 16:29: ion: 4mg/ml Ondansetron No Notes: [place] summer -30 (Same as: l 16:29: Zofran) MEDICATION WASTE Product Size: 4 mg Product Wasted: ___ mg Diphenhydra No Notes: Alon[place] summer mine 08-09 (Same as: l 16:29: Benadryl) [place] 00 [...] as: l / 16:29: Duoneb) Ipratropium 00 [place] 0.167 MG/ML Inhalant Solution [DuoNeb] celecoxib Yes Notes: Memori a 6-30 NSAID. l 16:29: Please [place] 00 check indication . Not for seizure. (Same As: CeleBREX) 72 HR Yes Notes: [facility] Scopolamine -30 Change l 0.0139 16:29: patch [place] MG/HR 00 every 72 Transdermal hours Patch (Same as: Transderm- Scop) Midazolam No Notes: [facility]ori a 6-30 (Same as: l 16:29: Versed) MEDICATION WASTE Product Size: 2 mg Product Wasted: _1__ mg Ephedrine No Notes: Memori a 6-30 (Same as: l 16:29: ePHEDrine [place] Sulfate) Flumazenil No Notes: Memor ia 6-30 [...] l / 16:29: Duoneb) [place] Ipratropium 00 [place] 0.167 MG/ML Inhalant Solution [DuoNeb] celecoxib Yes Notes: Memori a 6-30 NSAID. l 16:29: Please [place] 00 check indication . Not for seizure. [...] a 6-30 (Same as: l 16:29: ePHEDrine [place] 00 Sulfate) Flumazenil No Notes: Memor ia 6-30 (Same as: l 16:29: Romazicon) Calcium No 1,000 mL, Memor ia Chloride 30 Rate: 125 l 0.0014 16:29: ml/hr, [place] MEQ/ML / 00 Infuse Potassium over: 8 [...] as: l / 16:29: Duoneb) Ipratropium 00 [place] 0.167 MG/ML Inhalant Solution [DuoNeb] celecoxib Yes Notes: Memori a 6-30 NSAID. l 16:29: Please [place] 00 check indication . Not for seizure. [...] Memoria l 6-30 RT l 16:29: DOCUMENTAT [place] 00 ION (Same as:Xopenex ) Non-Formul george [...] summer ne 6-30 Concentrat l 16:29: ion: [place] 00 4mg/ml Ondansetron No Notes: Alonzo summer [...] l / 16:29: Duoneb) [place] Ipratropium 00 [place] 0.167 MG/ML Inhalant Solution [DuoNeb] celecoxib Yes Notes: Memori a 6-30 NSAID. l 16:29: Please [place] 00 check indication . Not for seizure. (Same As: CeleBREX) 72 HR Yes Notes: [facility] Scopolamine 6-30 Change l 0.0139 16:29: patch [place] MG/HR 00 every 72 Transdermal hours Patch (Same as: Transderm- Scop) Midazolam No Notes: Memori a 6-30 (Same as: l 16:29: Versed) [place] 00 MEDICATION WASTE Product Size: 2 mg [...] / 6-30 (Same as: l Hydrocodone 16:24: [place] Judith nn Bitartrate 00 325/5) Do 5 [...] / 6-30 (Same as: l Hydrocodone 16:24: [place] Judith nn Bitartrate 00 325/5) Do 5 [...] / 6-30 (Same as: l Hydrocodone 16:24: [place] Judith nn Bitartrate 00 325/5) Do 5 MG Oral not exceed Tablet 4gm/day of acetaminop hen. Tramadol No Notes: Not Mem oria 6-30 to exceed l 16:24: 400mg/day. [place] 00 (Same As: Ultram) Acetaminoph No Notes: Do M emoria en 6-30 not exceed l 16:24: 4 gm/day. [place] 00 (Same as: Tylenol) Hydromorpho No Notes: Alonzo summer ne 6-30 (Same as: l 16:24: Dilaudid) Acetaminoph No Notes: Alonzo summer en 325 MG / 6-30 (Same as: l Hydrocodone 16:24: [place] Judith nn Bitartrate 00 325/5) Do 5 MG Oral not exceed Tablet 4gm/day of acetaminop hen. Tramadol No Notes: Not Mem oria 6-30 to exceed l 16:24: 400mg/day. [place] 00 (Same As: Ultram) Acetaminoph No Notes: Do M emoria en 6-30 not exceed l 16:24: 4 gm/day. (Same as: Tylenol) Hydromorpho No Notes: Alonzo summer ne 6-30 (Same as: l 16:24: Dilaudid) [place] 00 Acetaminoph No Notes: Alonzo summer en 325 MG / 6-30 (Same as: l Hydrocodone 16:24: [place] Judith nn Bitartrate 00 325/5) Do 5 [...] / 6-30 (Same as: l Hydrocodone 16:24: [place] Judith nn Bitartrate 00 325/5) Do 5 [...] / 6-30 (Same as: l Hydrocodone 16:24: [place] Judith nn Bitartrate 00 325/5) Do 5 [...] / 6-30 (Same as: l Hydrocodone 16:24: [place] Judith nn Bitartrate 00 325/5) Do 5 MG Oral not exceed Tablet 4gm/day of acetaminop hen. Tramadol 0 No Notes: Not Mem oria 6-30 to exceed l 16:24: 400mg/day. [place] 00 (Same As: Ultram) ondansetron No Route: [...] 2015-0 No Route: IV, Memoria ne (ANES) 08-09 [...] 2015-0 No Route: IV, Memoria line (ANES) - Drug form: l 15:45: INJ, ONCE, Stop date: 08/10/15 10:45:00 CDT propofol 2015-0 No Route: IV, Mem oria (ANES) 6-30 Drug form: l 15:45: INJ, ONCE, Stop date: 08/10/15 10:45:00 CDT lidocaine 2015-0 No Route: IV, Me moria (ANES) 630 Drug form: l 15:45: INJ, ONCE, 00 Stop date: 08/10/15 10:45:00 CDT fentaNYL 2016-0 No Route: IV, Mem oria (ANES) 6-30 Drug form: l 15:45: INJ, ONCE, [place] 00 Stop date: 08/10/15 10:45:00 CDT midazolam 2016-0 No Route: IV, Me moria (ANES) 6-30 Drug form: l 15:45: SOLN, [place] ONCE, Stop date: 08/10/15 10:45:00 CDT succinylcho 2016-0 No Route: IV, [facility]oria line (ANES) 6-30 Drug form: l 15:45: INJ, ONCE, [place] 00 Stop date: 08/10/15 10:45:00 CDT propofol 2016-0 No Route: IV, Mem oria (ANES) 6-30 Drug form: l 15:45: INJ, ONCE, Stop date: 08/10/15 10:45:00 CDT lidocaine 2016-0 No Route: IV, Me moria (ANES) 6-30 Drug form: l 15:45: INJ, ONCE, [place] 00 Stop date: 08/10/15 10:45:00 CDT fentaNYL 2016-0 No Route: IV, Mem oria (ANES) 6-30 Drug form: l 15:45: INJ, ONCE, [place] 00 Stop date: 08/10/15 10:45:00 CDT midazolam 2016-0 No Route: IV, Me moria (ANES) 6-30 Drug form: l 15:45: SOLN, [place] ONCE, Stop date: 08/10/15 10:45:00 CDT succinylcho 2015-0 No Route: IV, [facility] line (ANES) 6-30 Drug form: l 15:45: INJ, ONCE, [place] 00 Stop date: 08/10/15 10:45:00 CDT propofol 2016-0 No Route: IV, Mem oria (ANES) 6-30 Drug form: l 15:45: INJ, ONCE, [place] 00 Stop date: 08/10/15 10:45:00 CDT lidocaine 2016-0 No Route: IV, Me moria (ANES) 6-30 Drug form: l 15:45: INJ, ONCE, [place] 00 Stop date: 08/10/15 10:45:00 CDT fentaNYL 2016-0 No Route: IV, Mem oria (ANES) 6-30 Drug form: l 15:45: INJ, ONCE, [place] 00 Stop date: 08/10/15 10:45:00 CDT midazolam 2016-0 No Route: IV, Me moria (ANES) 6-30 Drug form: l 15:45: SOLN, [place] ONCE, Stop date: 08/10/15 10:45:00 CDT succinylcho [...] (ANES) 6-30 Drug form: l 15:45: SOLN, [place] 00 ONCE, Stop date: 08/10/15 10:45:00 CDT succinylcho 2015-0 No Route: IV, [facility]oria line (ANES) 6-30 Drug form: l 15:45: INJ, ONCE, [place] 00 Stop date: 08/10/15 10:45:00 CDT propofol 2016-0 No Route: IV, Mem oria (ANES) 6-30 Drug form: l 15:45: INJ, ONCE, [place] 00 Stop date: 08/10/15 10:45:00 CDT lidocaine 2016-0 No Route: IV, Me moria (ANES) 6-30 Drug form: l 15:45: INJ, ONCE, [place] 00 Stop date: 08/10/15 10:45:00 CDT fentaNYL 2016-0 No Route: IV, Mem oria (ANES) 6-30 Drug form: l 15:45: INJ, ONCE, Stop date: 08/10/15 10:45:00 CDT midazolam 2016-0 No Route: IV, Me moria (ANES) 6-30 Drug form: l 15:45: SOLN, [place] 00 ONCE, Stop date: 08/10/15 10:45:00 CDT [...] (ANES) 6-30 Drug form: l 15:45: SOLN, [place] 00 ONCE, Stop date: 08/10/15 10:45:00 CDT [...] ONCE, Stop date: 08/10/15 10:45:00 CDT fentaNYL 2015-0 No Route: IV, Mem oria (ANES) 6-30 Drug form: l 15:45: INJ, ONCE, Stop date: 08/10/15 10:45:00 CDT midazolam 2016-0 No Route: IV, Me moria (ANES) 6-30 Drug form: l 15:45: SOLN, [place] 00 ONCE, Stop date: 08/10/15 10:45:00 CDT ePHEDrine 2016-0 No Route: IV, Me moria (ANES) 6-30 Drug form: l 15:40: INJ, ONCE, [place] 00 Stop date: 08/10/15 10:40:00 CDT ePHEDrine 2016-0 No Route: IV, Me moria (ANES) 6-30 Drug form: l 15:40: INJ, ONCE, [place] 00 Stop date: 08/10/15 10:40:00 CDT ePHEDrine 2016-0 No Route: IV, Me moria (ANES) 6-30 Drug form: l 15:40: INJ, ONCE, [place] 00 Stop date: 08/10/15 10:40:00 CDT ePHEDrine 2016-0 [...] ONCE, Stop date: 08/10/15 10:34:00 CDT ceFAZolin 0 No Route: IV, Me moria (ANES) [...] INJ (ANES) 6-30 Total l 14:51: Volume: [place] 00 1,000, Start date: 08/10/15 9:51:00 CDT, Stop date: 08/10/15 10:51:00 CDT LR 1000 mL No Route: IV, M emoria INJ (ANES) 6-30 Total l 14:51: Volume: [place] 00 1,000, Start date: 08/10/15 9:51:00 CDT, Stop date: 08/10/15 10:51:00 CDT LR 1000 mL No Route: IV, M emoria INJ (ANES) 6-30 Total l 14:51: Volume: [place] 00 1,000, Start date: 08/10/15 9:51:00 CDT, [...] INJ (ANES) 6-30 Total l 14:51: Volume: [place] 00 1,000, Start date: 08/10/15 9:51:00 CDT, [...] 6-30 Rate: 25 l 0.0014 13:01: ml/hr, [place] MEQ/ML / 00 Infuse Potassium over: 40 Chloride hr, Route: 0.004 IV, Dosing MEQ/ML / Weight Sodium 134.091 Chloride kg, Total 0.103 Volume: MEQ/ML / 1,000, Sodium Start Lactate date: 0.028 08/10/15 MEQ/ML 8:01:00 Injectable CDT, Solution Duration: 30 day, Stop date: 09/09/15 8:00:00 CDT Insulin, No Notes: Memoria Aspart, 6-30 Roll in l Human 13:01: palms of [place] 00 hands gently; Do not shake vigorously [...] 6-30 Rate: 25 l 0.0014 13:01: ml/hr, [place] MEQ/ML / 00 Infuse Potassium over: 40 [...] 6-30 Same as: l 0.09 13:01: Ventolin [place] MG/ACTUAT 00 HFA Metered WASTE: Dose Aerosol - Inhaler Return to Pharmacy Calcium No 1,000 mL, Memor ia Chloride 6-30 Rate: 25 l 0.0014 13:01: ml/hr, [place] MEQ/ML / 00 Infuse Potassium over: 40 Chloride hr, Route: 0.004 IV, Dosing MEQ/ML / Weight Sodium 134.091 Chloride kg, Total 0.103 Volume: MEQ/ML / 1,000, Sodium Start Lactate date: 0.028 30/16 MEQ/ML 8:01:00 Injectable CDT, Solution Duration: 30 day, Stop date: 09/09/15 8:00:00 CDT Insulin, No Notes: Memoria Aspart, 6-30 Roll in l Human 13:01: palms of [place] 00 hands gently; Do not shake vigorously . (Same as: NovoLOG) "single patient use only" WASTE: F/P - Black; E - Municipal Trash Bin Stable for 28 days at room temperatur e. Expires in days from ____Date 200 ACTUAT No Notes: Memor ia Albuterol 6-30 Same as: l 0.09 13:01: Ventolin [place] MG/ACTUAT 00 HFA WASTE: Metered Aerosol - [...] 6-30 Same as: l 0.09 13:01: Ventolin [place] MG/ACTUAT 00 HFA WASTE: Metered Aerosol - Dose Return to Inhaler Pharmacy Calcium No 1,000 mL, Memor ia Chloride 6-30 Rate: 25 l 0.0014 13:01: ml/hr, [place] MEQ/ML / 00 Infuse Potassium over: 40 Chloride hr, Route: 0.004 IV, Dosing MEQ/ML / Weight Sodium 134.091 Chloride kg, Total 0.103 Volume: MEQ/ML / 1,000, Sodium Start Lactate date: 0.028 08/09/16 MEQ/ML 8:01:00 Injectable CDT, Solution Duration: 30 day, Stop date: 09/09/15 8:00:00 CDT Insulin, No Notes: Memoria Aspart, 6-30 Roll in l Human 13:01: palms of [place] 00 hands gently; Do not shake vigorously [...] 6-30 Rate: 25 l 0.0014 13:01: ml/hr, [place] MEQ/ML / 00 Infuse Potassium over: 40 Chloride hr, Route: 0.004 IV, Dosing MEQ/ML / Weight Sodium 134.091 Chloride kg, Total 0.103 Volume: MEQ/ML / 1,000, Sodium Start Lactate date: 0.028 08/09/16 MEQ/ML 8:01:00 Injectable CDT, Solution Duration: 30 day, Stop date: 09/09/15 8:00:00 CDT Insulin, No Notes: Memoria Aspart, 6-30 Roll in l Human 13:01: palms of [place] 00 hands gently; Do not shake vigorously . (Same as: NovoLOG) "single patient use only" WASTE: F/P - Black; E - Municipal Trash Bin Stable for 28 days at room temperatur e. Expires in days from ____Date 200 ACTUAT No Notes: Memor ia Albuterol 6-30 Same as: l 0.09 13:01: Ventolin [place] MG/ACTUAT 00 HFA WASTE: Metered Aerosol - Dose Return to Inhaler Pharmacy Calcium No 1,000 mL, Memor ia Chloride 6-30 Rate: 25 l 0.0014 13:01: ml/hr, [place] MEQ/ML / 00 Infuse Potassium over: 40 [...] 6-30 Same as: l 0.09 13:01: Ventolin [place] MG/ACTUAT 00 HFA WASTE: Metered Aerosol - Dose Return to Inhaler Pharmacy Calcium No 1,000 mL, Memor ia Chloride 6-30 Rate: 25 l 0.0014 13:01: ml/hr, [place] MEQ/ML / 00 Infuse Potassium over: 40 [...] Memoria 6-30 Same as: l 11:00: Ancef [place] 00 BD Normal No Notes: Memori a Saline 6-30 (Same as: l Flush 11:00: BD [place] 00 Posiflush) Ancef No Notes: Memoria 6-30 Same as: l 11:00: Ancef [place] 00 BD Normal No Notes: Memori a Saline 6-30 (Same as: l Flush 11:00: BD [place] 00 Posiflush) Ancef No Notes: Memoria 6-30 Same as: l 11:00: Ancef [place] 00 BD Normal No Notes: Memori a Saline 6-30 (Same as: l Flush 11:00: BD [place] 00 Posiflush) Ancef No Notes: Memoria 6-30 Same as: l 11:00: Ancef [place] 00 BD Normal No Notes: Memori a Saline 6-30 (Same as: l Flush 11:00: BD [place] 00 Posiflush) Ancef No Notes: Memoria 6-30 Same as: l 11:00: Ancef [place] 00 BD Normal No Notes: Memori a Saline 6-30 (Same as: l Flush 11:00: BD [place] 00 Posiflush) Ancef No Notes: Memoria 6-30 Same as: l 11:00: Ancef [place] 00 BD Normal No Notes: Memori a Saline 6-30 (Same as: l Flush 11:00: BD [place] 00 Posiflush) Ancef No Notes: Memoria 6-30 Same as: l 11:00: Ancef [place] 00 BD Normal No Notes: Memori a Saline 6-30 (Same as: l Flush 11:00: BD [place] 00 Posiflush) Ancef No Notes: Memoria 6-30 Same as: l 11:00: Ancef [place] 00 Deplin 15 Yes 15 mg = 1 Mem oria mg oral 6-23 cap, PO, l capsule 14:59: Daily, 0 Randy n 00 Refill(s) Deplin 15 0 Yes 15 mg = 1 Mem o[facility] mg oral 6-23 cap, PO, l capsule 14:59: Daily, 0 Randy n 00 Refill(s) Deplin 15 0 Yes 15 mg = 1 [facility] mg oral 6-23 cap, PO, l capsule 14:59: Daily, 0 Randy n 00 Refill(s) Deplin 15 0 Yes 15 mg = 1 Mem [facility] mg oral 6-23 cap, PO, l capsule 14:59: Daily, 0 Randy n 00 Refill(s) Deplin 15 0 Yes 15 mg = 1 Mem o[facility] mg oral 6-23 cap, PO, l capsule 14:59: Daily, 0 Randy n 00 Refill(s) Deplin 15 0 Yes 15 mg = 1 Mem oria mg oral 6-23 cap, PO, l capsule 14:59: Daily, 0 Randy n 00 Refill(s) Deplin 15 Yes 15 mg = 1 Mem o[facility] mg oral 6-23 cap, PO, l capsule 14:59: Daily, 0 Randy n 00 Refill(s) Deplin 15 0 Yes 15 mg = 1 Mem oria [...] tab, PO, l Tablet 14:58: Daily, # [place] [Nuvigil] 00 30 tab, 0 Refill(s) armodafinil Yes 250 mg = 1 Memoria 250 MG Oral 6-23 tab, PO, l Tablet 14:58: Daily, # [place] [Nuvigil] 00 30 tab, 0 Refill(s) armodafinil [...] tab, PO, l Tablet 14:58: Daily, # [place] [Nuvigil] 00 30 tab, 0 Refill(s) armodafinil Yes 250 mg = 1 Memoria 250 MG Oral 6-23 tab, PO, l Tablet 14:58: Daily, # [place] [Nuvigil] 00 30 tab, 0 Refill(s) Suvorexant [...] 0 Judith nn [Belsomra] 00 Refill(s) Suvorexant 0 Yes 10 mg = 1 Me moria 10 MG Oral 6-23 tab, PO, l Tablet 14:57: Bedtime, 0 Judith nn [Belsomra] 00 Refill(s) Suvorexant 0 Yes 10 mg = 1 Me moria 10 MG Oral 6-23 tab, PO, l Tablet 14:57: Bedtime, 0 Judith nn [Belsomra] 00 Refill(s) ezetimibe Yes 10 mg = 1 Mem oria 10 MG Oral 6-23 tab, PO, l Tablet 14:56: Daily, 0 [place] [Zetia] 00 Refill(s) Milnacipran 0 Yes 50 [...] tab, PO, l Tablet 14:56: Daily, 0 [place] [Zetia] 00 Refill(s) Milnacipran 0 Yes 50 [...] tab, PO, l Tablet 14:56: Daily, 0 [place] [Zetia] 00 Refill(s) Milnacipran 2015-0 Yes 50 [...] Daily, 0 [place] [Zetia] 00 Refill(s) Milnacipran 2016-0 Yes 50 [...] tab, PO, l Tablet 14:56: Daily, 0 [place] [Zetia] 00 Refill(s) Milnacipran 2015-0 Yes 50 [...] tab, PO, l Tablet 14:56: Daily, 0 [place] [Zetia] 00 Refill(s) Milnacipran 2016-0 Yes 50 [...] tab, PO, l Tablet 14:56: Daily, 0 [place] [Zetia] 00 Refill(s) Milnacipran Yes 50 mg [...] FlexTouch 6-23 Daily, 0 l 14:55: Refill(s) [place] 00 0.65 ML 2015- Yes 2 mg, [...] FlexTouch 6-23 Daily, 0 l 14:55: Refill(s) [place] 00 0.65 ML 0 Yes 2 mg, Memoria exenatide 6-23 SUB-Q, l 3.08 MG/ML 14:55: qWeek, # 4 H ermann Prefilled 00 ea, 0 Syringe Refill(s) [Bydureon] dexlansopra Yes 60 mg = 1 M emoria zole 60 MG 6-23 cap, PO, l Enteric 14:55: Daily, 0 Randy n Coated 00 Refill(s) Capsule [Dexilant] Tresiba 0 Yes SUB-Q, Memoria FlexTouch 6-23 Daily, 0 l 14:55: Refill(s) [place] 00 0.65 ML 0 Yes 2 mg, [facility]oria exenatide 6-23 SUB-Q, l 3.08 MG/ML 14:55: qWeek, # 4 H ermann Prefilled 00 ea, 0 Syringe Refill(s) [Bydureon] dexlansopra 0 Yes 60 mg = 1 M emoria zole 60 MG 6-23 cap, PO, l Enteric 14:55: Daily, 0 Randy n Coated 00 Refill(s) Capsule [Dexilant] Tresiba 2015-0 Yes SUB-Q, [facility] FlexTouch 6-23 Daily, 0 l 14:55: Refill(s) [place] 00 0.65 ML 2015-0 Yes 2 mg, [...] FlexTouch 6-23 Daily, 0 l 14:55: Refill(s) [place] 00 0.65 ML 2015-0 Yes 2 mg, [...] Her brito Tablet 00 Refill(s) [VESICARE] pilocarpine 2015-0 Yes 7.5 mg = 1 [...] roquine 6-23 PO, Daily, l 14:53: 0 [place] 00 Refill(s) pilocarpine 2016-0 Yes 7.5 mg [...] roquine 6-23 PO, Daily, l 14:53: 0 [place] 00 Refill(s) pilocarpine 2016 Yes 7.5 mg = 1 Memoria 7.5 mg oral 6-23 tab, PO, l tablet 14:53: TID, # 90 Randy n 00 tab, 0 Refill(s) cyclobenzap 2016 Yes 10 mg = 1 M emoria rine 10 mg 6-23 tab, PO, l oral tablet 14:53: TID, PRN He rmann 00 for spasms, # 30 tab, 0 Refill(s) Hydroxychlo 2016 Yes 200 mg, Mem oria roquine 6-23 PO, Daily, l 14:53: 0 [place] 00 Refill(s) Hydroxychlo 2016-0 Yes 200 mg, Mem oria roquine 6-23 PO, Daily, l 14:53: 0 [place] 00 Refill(s) pilocarpine Yes 7.5 mg = [...] cap, PO, l Capsule 14:52: BID, 0 [place] [Celebrex] 00 Refill(s) Methotrexat Yes 0 Memori [...] Memori a e 6-23 Refill(s) l 14:52: [place] 00 Methotrexat Yes INTRATHECA Memoria e Sodium, [...] e 6-23 Refill(s) l 14:52: [place] Methotrexat 0 Yes INTRATHECA Memoria e Sodium, 6-23 L, ONCE, 0 l Preservativ 14:52: Refill(s) H ermann e Free 25 00 mg/mL injectable solution celecoxib Yes 200 mg = 1 Me moria 200 MG Oral 6-23 cap, PO, l Capsule 14:52: BID, 0 [place] [Celebrex] 00 Refill(s) Methotrexat Yes 0 Memori a e 6-23 Refill(s) l 14:52: [place] 00 Methotrexat 0 Yes INTRATHECA Memoria e Sodium, 6-23 L, ONCE, 0 l Preservativ 14:52: Refill(s) H ermann e Free 25 00 mg/mL injectable solution celecoxib Yes 200 mg = 1 Me moria 200 MG Oral 6-23 cap, PO, l Capsule 14:52: BID, 0 [place] [Celebrex] 00 Refill(s) Methotrexat 0 Yes 0 Memori a e 6-23 Refill(s) l 14:52: [place] 00 Methotrexat 0 Yes INTRATHECA Memoria e Sodium, 6-23 L, ONCE, 0 l Preservativ 14:52: Refill(s) H ermann e Free 25 00 mg/mL injectable solution celecoxib Yes 200 mg = 1 Me moria 200 MG Oral 6-23 cap, PO, l Capsule 14:52: BID, 0 [place] [Celebrex] 00 Refill(s) Methotrexat Yes 0 Memori a e 6-23 Refill(s) l 14:52: [place] 00 Methotrexat Yes INTRATHECA Memoria e Sodium, 6-23 L, ONCE, 0 l Preservativ 14:52: Refill(s) H ermann e Free 25 00 mg/mL injectable solution celecoxib Yes 200 mg = 1 Me moria 200 MG Oral 6-23 cap, PO, l Capsule 14:52: BID, 0 [place] [Celebrex] 00 Refill(s) Methotrexat Yes 0 Memori a e 6-23 Refill(s) l 14:52: [place] 00 Methotrexat Yes INTRATHECA Memoria e Sodium, [...] tab, PO, l Tablet 14:51: Daily, 0 [place] Refill(s) Folic Acid Yes 1 mg = [...] tab, PO, l Tablet 14:51: Daily, 0 [place] 00 Refill(s) Folic Acid Yes 1 mg = 1 Mem oria 1 MG Oral 6-23 tab, PO, l Tablet 14:51: Daily, 0 [place] 00 Refill(s) Folic Acid Yes 1 mg = 1 Mem oria 1 MG Oral 6-23 tab, PO, l Tablet 14:51: Daily, 0 [place] 00 Refill(s) Folic Acid Yes 1 mg = 1 Mem oria 1 MG Oral 6-23 tab, PO, l Tablet 14:51: Daily, 0 [place] 00 Refill(s) Celebrex Celebrex Yes Luciano 1 capsule Common [place] with food [facility] Cyclobenzap Cyclobenzap Yes Luciano 1 tablet Common rine HCl rine HCl [place] as needed S pirit [facility] Zestoretic Zestoretic Yes Luciano 1 tablet Common Travis [facility] Abilify Abilify Yes Luciano 1 tablet Com mon Travis [facility] Restasis Restasis Yes Luciano 1 drop Com mon [place] into [facility] affected [facility] eye [facility] Humalog Humalog Yes Luciano as Common [place] directed [facility] Plaquenil Plaquenil Yes Luciano 1 tablet Common [place] with food [facility] or milk [facility] Iron Iron Yes Luciano 1 tablet Common Travis [facility] Leflunomide Leflunomide Yes Luciano 1 tablet Common Travis [facility] Vistaril Vistaril Yes Luciano 1 capsule Common [place] as needed [facility] Bydureon Bydureon Yes Luciano not Commo n Travis defined [facility] ProAir HFA ProAir HFA Yes Luciano 2 puffs as Common Travis needed [facility] Pilocarpine Pilocarpine Yes Luciano 1 tablet Common HCl HCl Travis [facility] Savella Savella Yes Luciano 2 tablets Co mmon Travis [facility] Guaifenesin Guaifenesin Yes Luciano 10 ml as Common -Codeine -Codeine Travis needed Spir [facility] Atorvastati Atorvastati Yes Luciano 1 tablet Common n Calcium n Calcium Travis Spir [facility] Omeprazole Omeprazole Yes Luciano 1 capsule Common Travis [facility] Breo Breo Yes Luciano 1 puff Common Ellipta Ellipta Travis [facility] Trazodone Trazodone Yes Luc[place] 1 tablet Common HCl HCl Travis at bedtime [facility] Toujeo Toujeo Yes Luciano not Common SoloStar SoloStar Travis defined Spi [facility] Tolterodine Tolterodine Yes Luciano 1 capsule Common Tartrate ER Tartrate ER Travis [facility] Hemocyte Hemocyte Yes Luciano 1 capsule Common Plus Plus Travis [facility] Folic Acid Folic Acid Yes Luciano 1 tablet Common Travis [facility] MetFORMIN MetFORMIN Yes Luc[place] 1 tablet Common HCl ER HCl ER Travis at night [facility] Metformin Metformin Yes Luciano 1 tablet Common HCl HCl Travis with a Spirit meal in - [facility] the [facility] Saphris Saphris Yes Luciano 1 tablet Com mon Travis under the [facility] tongue and - [facility] allow to [facility] Paxil Paxil Yes Luciano 1 tablet Common Travis in the [facility] Colace Colace Yes Luciano 1 capsule Comm on Travis as needed [facility] Leflunomide Leflunomide No 1{table QD Leflunomid [...] 100-10 100-10 d} 100-10 MG/5ML MG/5ML MG/5ML [place] No [place] metFORMIN metFORMIN No QD metFORMIN HCl 1000 [...] t_under MG _the_to ngue_an d_allow _to_dis solve} Abilify 20 Abilify 20 Yes 1 po QHS UT MG Oral MG Oral Physici Tablet Tablet ans Restasis Restasis No 1{drop_ BID Restasis 0.05 % 0.05 % into_af 0.05 % fected_ eye} Nuvigil Nuvigil No Nuvigil Plaquenil Plaquenil No 1{table QD Plaquenil 200 MG 200 MG t_with_ 200 MG food_or _milk} HumaLOG 100 HumaLOG 100 No HumaLOG UNIT/ML UNIT/ML 100 UNIT/ML guaiFENesin guaiFENesin No 10{ml_a guaiFENesi -Codeine -Codeine s_neede n-Codeine 100-10 100-10 d} 100-10 MG/5ML MG/5ML MG/5ML [place] No [place] metFORMIN metFORMIN No QD metFORMIN HCl 1000 MG HCl 1000 MG HCl 1000 MG Vistaril 25 Vistaril 25 No 1{capsu TID Vistaril MG MG le_as_n 25 MG eeded} Gabapentin Gabapentin No 1{capsu Gabapentin 300 MG 300 MG le} 300 MG Savella 50 Savella 50 Yes 1 po QHS UT MG Oral MG Oral Physici Tablet Tablet ans Tolterodine Tolterodine No 1{capsu QD Tolterodin Tartrate [...] Calcium 10 MG 10 MG 10 MG Plavix 75 Plavix 75 Yes UT MG Oral MG Oral Physici Tablet Tablet ans metFORMIN metFORMIN No QD metFORMIN HCl ER [...] amitriptyli amitriptyli No amitriptyl ne ne ine Simvastatin Simvastatin Yes U T 40 MG Oral 40 MG Oral Phy sici Tablet Tablet ans Breo Breo No 1{puff} QD Breo Ellipta [...] % fected_ eye} Nuvigil Nuvigil No Nuvigil SulfaSALAzi SulfaSALAzi Yes U T ne 500 MG ne 500 MG Physi ci Oral Tablet Oral Tablet a ns Plaquenil Plaquenil No 1{table QD Plaquenil 200 MG 200 MG t_with_ 200 MG food_or _milk} HumaLOG 100 HumaLOG 100 No HumaLOG UNIT/ML UNIT/ML 100 UNIT/ML guaiFENesin guaiFENesin No 10{ml_a guaiFENesi -Codeine -Codeine s_neede n-Codeine 100-10 100-10 d} 100-10 MG/5ML MG/5ML MG/5ML [place] No [place] metFORMIN metFORMIN No QD metFORMIN HCl 1000 [...] 106-1 le} Plus 106-1 MG MG MG Leflunomide Leflunomide Yes U T 20 MG Oral 20 MG Oral Phy sici Tablet Tablet ans traZODone traZODone No 1{table QD traZODone HCl [...] 500 HCl ER 500 MG MG MG Rafita Eller No BID Toujeo SoloStar SoloStar SoloStar 300u/ml 300u/ml 300u/ml CeleBREX CeleBREX Yes UT CAPS CAPS Physici ans Colace 100 Colace 100 No 1{capsu Colace [...] FlexTouch 200 UNIT/ML 200 UNIT/ML 200 UNIT/ML Hydroxychlo Hydroxychlo Yes U T roquine roquine Physici Sulfate 200 Sulfate 200 a ns MG Oral MG Oral Tablet Tablet Gabapentin Gabapentin No 2{table BID Gabapentin 600 [...] eded} 10 MG Folic Acid Folic Acid Yes UT 1 MG Oral 1 MG Oral Physi ci Tablet Tablet ans Hemocyte Hemocyte No 1{capsu QD Hemocyte Plus [...] 1 MG 1 MG t} 1 MG Pilocarpine Pilocarpine Yes U T HCl - 7.5 HCl - 7.5 Physi ci MG Oral MG Oral ans Tablet Tablet CeleBREX CeleBREX No 1{capsu QD CeleBREX 200 [...] 20-12.5 MG 20-12.5 MG t} 20-12.5 MG HydrOXYzine HydrOXYzine Yes U T HCl - 25 MG HCl - 25 MG P hysici Oral Tablet Oral Tablet a ns Leflunomide Leflunomide No 1{table QD Leflunomid 20 MG 20 MG t} e 20 MG Iron 325 Iron 325 No 1{table QD Iron 325 (65 Fe) MG (65 Fe) MG t} (65 Fe) MG Lipoic Acid Lipoic Acid No Lipoic 150 MG 150 MG Acid 150 MG Tresiba Tresiba No Tresiba FlexTouch FlexTouch FlexTouch 200 UNIT/ML 200 UNIT/ML 200 UNIT/ML TraZODone TraZODone Yes UT HCl TABS HCl TABS Physici ans Gabapentin Gabapentin No 2{table BID Gabapentin 600 [...] Calcium 10 MG 10 MG 10 MG Tresiba Tresiba Yes UT FlexTouch FlexTouch Physi ci SOPN SOPN ans Cyclobenzap Cyclobenzap No 1{table TID Cyclobenza rine [...] 4 MG 4 MG ER 4 MG Bydureon Bydureon Yes UT PEN PEN Physici ans Amitriptyli Amitriptyli No 1{table QD Amitriptyl ne [...] QD Abilify 20 MG MG t} MG [place] No [place] Plaquenil Plaquenil No 1{table QD Plaquenil 200 [...] QD Abilify 20 MG MG t} MG [place] No [place] Plaquenil Plaquenil No 1{table QD Plaquenil 200 [...] QD Abilify 20 MG MG t} MG [place] No [place] Plaquenil Plaquenil No 1{table QD Plaquenil 200 [...] QD Abilify 20 MG MG t} MG [place] No [place] Plaquenil Plaquenil No 1{table QD Plaquenil 200 [...] 100 No HumaLOG UNIT/ML UNIT/ML 100 UNIT/ML [place] No [place] Breo Breo No 1{puff} QD Breo Ellipta [...] 100 No HumaLOG UNIT/ML UNIT/ML 100 UNIT/ML [place] No [place] Breo Breo No 1{puff} QD Breo Ellipta [...] 100 No HumaLOG UNIT/ML UNIT/ML 100 UNIT/ML [place] No [place] Breo Breo No 1{puff} QD Breo Ellipta [...] 100 No HumaLOG UNIT/ML UNIT/ML 100 UNIT/ML [place] No [place] Breo Breo No 1{puff} QD Breo Ellipta [...] 200 MG t_with_ 200 MG food_or _milk} [place] No [place] Omeprazole Omeprazole No 1{capsu QD Omeprazole 40 [...] Zestoretic 20-12.5 MG 20-12.5 MG 20-12.5 MG [place] No [place] Iron 325 Iron 325 No 1{table QD [...] Zestoretic 20-12.5 MG 20-12.5 MG 20-12.5 MG [place] No [place] Iron 325 Iron 325 No 1{table QD [...] t_under MG _the_to ngue_an d_allow _to_dis solve} [place] No [place] Zoloft 50 Zoloft 50 No 1{table QD [...] Ellipta 200-25 200-25 200-25 MCG/INH MCG/INH MCG/INH [place] No [place] metFORMIN metFORMIN No QD metFORMIN HCl ER [...] 100-10 100-10 d} 100-10 MG/5ML MG/5ML MG/5ML [place] No [place] Folic Acid Folic Acid No 1{table QD [...] 100-10 100-10 d} 100-10 MG/5ML MG/5ML MG/5ML [place] No [place] Folic Acid Folic Acid No 1{table QD [...] 100 MG t_at_be HCl 100 MG dtime} Immunizations Ordered Immunization Filled Immunization Date Status Commen ts Source Name Name [facility] 2019-11-02 Completed [facility] 14:42:00 - [facility] 2019-11-02 Completed [facility] (Triamcinolone[facility] (Triamcinolone) 14:42:00 [facility] 2019-11-02 Completed [facility] (Triamcinolone) (Triamcinolone) 14:42:00 [facility] Mary Anne 2019-11-02 Completed [facility] (Triamcinolone) (Triamcinolone) 14:42:00 [facility] 2019-11-02 Completed [facility] (Triamcinolone) (Triamcinolone) 14:42:00 - [facility] 2019-11-02 Completed [facility] (Triamcinolone) (Triamcinolone) 14:42:00 - [facility] 2019-11-02 Completed [facility] (Triamcinolone) (Triamcinolone) 14:42:00 - [facility] 2019-11-02 Completed [facility] (Triamcinolone) (Triamcinolone) 14:42:00 - [facility] 2019-11-02 Completed [facility] (Triamcinolone) (Triamcinolone) 14:42:00 - [facility] Vital Signs Vital Name Observation Time Observation Value Comments Source height 2022-02-08 71 [in_i] [facility] - 15:20:00 [facility] weight 2022-02-08 240 [lb_av] [facility] - 15:20:00 [facility] bmi 2022-02-08 33.47 kg/m2 [facility] - 15:20:00 [facility] height 2022-01-16 71 [in_i] [facility] - 10:40:00 [facility] weight 2022-01-16 239.6 [lb_av] [facility] - 10:40:00 [facility] temperature 2022-01-16 97.5 [degF] [facility] - 10:40:00 [facility] bmi 2022-01-16 33.41 kg/m2 [facility] - 10:40:00 [facility] oximetry 2022-01-16 97 % [facility] - 10:40:00 [facility] respiratory rate 2022-01-16 17 /min [facility] - 10:40:00 [facility] blood pressure 2022-01-16 121 mm[Hg] [facility] - systolic 10:40:00 [facility] blood pressure 2022-01-16 68 mm[Hg] [facility] - diastolic 10:40:00 [facility] Systolic blood 2021-10-31 126 mm[Hg] [facility] pressure 19:16:00 Diastolic blood 2021-10-31 84 mm[Hg] [facility] pressure 19:16:00 Body height 2021-10-31 180.3 cm [facility] 19:16:00 Body weight 2021-10-31 112.038 kg [facility] 19:16:00 BMI 2021-10-31 34.45 kg/m2 [facility] 19:16:00 Systolic blood 2021-10-24 118 mm[Hg] [facility] pressure 18:53:00 Diastolic blood 2021-10-24 68 mm[Hg] [facility] pressure 18:53:00 Body temperature 2021-10-24 36.44 Teresa [facility] 18:53:00 Body height 2021-10-24 180.3 cm [facility] 18:53:00 Body weight 2021-10-24 112.401 kg [facility] 18:53:00 BMI 2021-10-24 34.56 kg/m2 [facility] 18:53:00 height 2021-10-17 71 [in_i] [facility] - 11:20:00 [facility] weight 2021-10-17 230 [lb_av] [facility] - 11:20:00 [facility] temperature 2021-10-17 97.6 [degF] [facility] - 11:20:00 [facility] bmi 2021-10-17 32.07 kg/m2 [facility] - 11:20:00 [facility] oximetry 2021-10-17 97 % [facility] - 11:20:00 [facility] respiratory rate 2021-10-17 16 /min [facility] - 11:20:00 [facility] blood pressure 2021-10-17 132 mm[Hg] [facility] - systolic 11:20:00 [facility] blood pressure 2021-10-17 76 mm[Hg] [facility] - diastolic 11:20:00 [facility] Systolic blood 2021-10-11 135 mm[Hg] [facility] pressure 13:08:00 [facility] Diastolic blood 2021-10-11 81 mm[Hg] [facility] pressure 13:08:00 [facility] Heart rate 2021-10-11 78 /min [facility] 13:08:00 [facility] Body height 2021-10-11 180.3 cm [facility] 13:08:00 [facility] Body weight 2021-10-11 104.101 kg [facility] 13:08:00 [facility] BMI 2021-10-11 32.01 kg/m2 [facility] 13:08:00 [facility] Oxygen saturation 2021-10-11 97 /min [facility] Arterial blood 13:08:[address] [facility] by Pulse oximetry [place] height 2021-07-18 71.5 [in_i] [facility] - 10:40:00 [facility] weight 2021-07-18 228.9 [lb_av] [facility] 10:40:00 [facility] temperature 2021-07-18 98.1 [degF] [facility] - 10:40:00 [facility] bmi 2021-07-18 31.48 kg/m2 [facility] - 10:40:00 [facility] oximetry 2021-07-18 95 % [facility] - 10:40:00 [facility] respiratory rate 2021-07-18 17 /min [facility] blood pressure 2021-07-18 135 mm[Hg] [facility] - systolic 10:40:00 [facility] blood pressure 2021-07-18 76 mm[Hg] [facility] - diastolic 10:40:00 [facility] height 2021-04-03 71.5 [in_i] [facility] - 15:00:00 [facility] weight 2021-04-03 234 [lb_av] [facility] - 15:00:00 [facility] temperature 2021-04-03 96.9 [degF] [facility] - 15:00:00 [facility] bmi 2021-04-03 32.18 kg/m2 [facility] - 15:00:00 [facility] oximetry 2021-04-03 98 % [facility] - 15:00:00 [facility] respiratory rate 2021-04-03 17 /min [facility] - 15[facility]00 [facility] blood pressure 2021-04-03 138 mm[Hg] [facility] - systolic 15:00:00 [facility] blood pressure 2021-04-03 75 mm[Hg] [facility] - diastolic 15:00:00 [facility] Systolic blood 2021-03-26 152 mm[Hg] [facility] pressure 18:40:00 [facility] Diastolic blood 2021-03-26 58 mm[Hg] [facility] 18:40:00 [facility] Heart rate 2021-03-26 95 /min [facility] 18:40:00 [facility] Body temperature 2021-03-26 37.22 Teresa [facility] 18:40:00 [facility] Respiratory rate 2021-03-26 18 /min [facility] 18:40:00 [facility] Body weight 2021-03-26 106.595 kg [facility] 18:40:00 [facility] BMI 2021-03-26 32.78 kg/m2 [facility] 18:40:00 [facility] Oxygen saturation 2021-03-26 100 /min [facility] Arterial blood 18:40:[address] [facility] by Pulse oximetry [place] height 2021-03-05 71.5 [in_i] [facility] - 09:50:00 [facility] weight 2021-03-05 239.4 [lb_av] [facility] - 09:50:00 [facility] temperature 2021-03-05 98.1 [degF] [facility] - 09:50:00 [facility] bmi 2021-03-05 32.92 kg/m2 [facility] - 09:50:00 [facility] oximetry 2021-03-05 98 % [facility] - 09:50:00 [facility] respiratory rate 2021-03-05 18 /min [facility] - 09[facility]00 [facility] blood pressure 2021-03-05 136 mm[Hg] [facility] - systolic 09:50:00 [facility] blood pressure 2021-03-05 64 mm[Hg] [facility] - diastolic 09:50:00 [facility] height 2021-03-05 71.5 [in_i] [facility] - 09:50:00 [facility] weight 2021-03-05 239.4 [lb_av] [facility] - 09:50:00 [facility] temperature 2021-03-05 98.1 [degF] [facility] - 09:50:00 [facility] bmi 2021-03-05 32.92 kg/m2 [facility] - 09:50:00 [facility] oximetry 2021-03-05 98 % [facility] - 09:50:00 [facility] blood pressure 2021-03-05 136 mm[Hg] [facility] - systolic 09:50:00 [facility] blood pressure 2021-03-05 64 mm[Hg] [facility] - diastolic 09:50:00 [facility] height 2020-12-07 71.5 [in_i] [facility] - 10:10: [facility] weight 2020-12-07 250.3 [lb_av] [facility] - :10: [facility] temperature 2020-12-07 98.0 [degF] [facility] - 10:10: [facility] bmi 2020-12-07 34.42 kg/m2 [facility] - 10:10:00 [facility] oximetry 2020-12-07 98 % [facility] - 10:10:00 [facility] respiratory rate 2020-12-07 17 /min [facility] - 10:10: [facility] blood pressure 2020-12-07 135 mm[Hg] [facility] - systolic 10:10:00 [facility] blood pressure 2020-12-07 70 mm[Hg] [facility] - diastolic 10:10:00 [facility] Systolic blood 2020-12-03 127 mm[Hg] [facility] 19:16:00 [facility] Diastolic blood 2020-12-03 84 mm[Hg] [facility] 19:16:00 [facility] Heart rate 2020-12-03 85 /min [facility] 19:16:00 [facility] Body temperature 2020-12-03 36.5 Teresa [facility] 19:16:00 [facility] Respiratory rate 2020-12-03 16 /min [facility] 19:16:00 [facility] Body height 2020-12-03 180.3 cm [facility] 19:16:00 [facility] Body weight 2020-12-03 113.399 kg [facility] 19:16:00 [facility] BMI 2020-12-03 34.87 kg/m2 [facility] 19:16:00 [facility] Oxygen saturation 2020-12-03 97 /min [facility] in Arterial blood 19:16:[address] [facility] by Pulse oximetry [place] height 2020-10-26 71.5 [in_i] [facility] - 10:10:00 [facility] weight 2020-10-26 290 [lb_av] [facility] - 10:10:00 [facility] temperature 2020-10-26 98 [degF] [facility] - 10:10:00 [facility] bmi 2020-10-26 39.88 kg/m2 [facility] - 10:10:00 [facility] blood pressure 2020-10-26 131 mm[Hg] [facility] - systolic 10:10:00 [facility] blood pressure 2020-10-26 70 mm[Hg] [facility] - diastolic 10:10:00 [facility] Systolic blood 2020-06-21 148 mm[Hg] [facility] 20:01:00 [facility] Diastolic blood 2020-06-21 85 mm[Hg] [facility] 20:01:00 [facility] Heart rate 2020-06-21 83 /min [facility] 20:01:00 [facility] Body temperature 2020-06-21 36.94 Teresa [facility] 20:01:00 [facility] Respiratory rate 2020-06-21 18 /min [facility] 20:01:00 [facility] Body height 2020-06-21 180.3 cm [facility] 20:01:00 [facility] Body weight 2020-06-21 131.271 kg [facility] 20:01:00 [facility] BMI 2020-06-21 40.36 kg/m2 [facility] 20:01:00 [facility] Systolic blood 2022-01-24 155 mm[Hg] [facility] 16:10:00 [facility] Diastolic blood 2022-01-24 77 mm[Hg] [facility] 16:10:00 [facility] Heart rate 2022-01-24 85 /min [facility] 16:10:00 [facility] Body temperature 2022-01-24 36.39 Teresa [facility] 16:10:00 [facility] Respiratory rate 2022-01-24 20 /min [facility] 16:10:00 [facility] Oxygen saturation 2022-01-24 100 /min [facility] in Arterial blood 16:10:00 [facility] by Pulse oximetry Body height 2022-01-24 180.3 cm [facility] 14:12:00 [facility] Body weight 2022-01-24 106.2 kg [facility] 14:12:00 [facility] BMI 2022-01-24 32.65 kg/m2 [facility] 14:12:00 [facility] Systolic blood 2020-06-22 144 mm[Hg] [facility] 15:10:00 [facility] Diastolic blood 2020-06-22 65 mm[Hg] [facility] 15:10:00 Hospital Heart rate 2020-06-22 88 /min [facility] 15:10:00 [facility] Body temperature 2020-06-22 36.22 Teresa [facility] 15:10:00 Hospital Body height 2020-06-22 180.3 cm [facility] 15:10:00 [facility] Respiratory rate 2020-05-05 16 /min [facility] 20:27:41 Hospital Oxygen saturation 2020-05-05 98 /min [facility] in Arterial blood 20:27:41 [facility] by Pulse oximetry Body weight 2020-05-04 128.187 kg [facility] 22:05:46 [facility] BMI 2020-05-04 39.41 kg/m2 [facility] 22:05:46 [facility] BP Systolic 2017-09-03 130 mm[Hg] Location: [facility] 11:02:00 Position: Sitting BP Diastolic 2017-09-03 80 mm[Hg] Location: [facility] 11:02:00 Position: Sitting Height 2017-09-03 71 [in_us] [facility] 11:02:00 Weight 2017-09-03 298 [lb_av] [facility] 11:02:00 Body Mass Index 2017-09-03 41.56 kg/m2 [facility] 11:02:00 Temperature 2017-09-03 97.8 [degF] [facility] 11:02:00 BP Systolic 2017-08-27 108 mm[Hg] Location: [facility] 14:27:00 Position: Sitting BP Diastolic 2017-08-27 70 mm[Hg] Location: [facility] 14:27:00 Position: Sitting Height 2017-08-27 71 [...] BP Systolic 2017-06-09 160 mm[Hg] [facility]: [facility] 09:20:00 Position: Sitting BP Diastolic 2017-06-09 92 mm[Hg] [facility] 09:20:00 Position: Sitting Height 2017-06-09 71 [in_us] [facility] 09:20:00 Weight 2017-06-09 298 [lb_av] [facility] 09:20:00 Body Mass Index 2017-06-09 41.56 kg/m2 [facility] 09:20:00 Temperature 2017-06-09 98.2 [degF] [facility] 09:20:00 Respitory [facility] He rmann 18:00:00 Diastolic (mm Hg) 2015-08-10 Chrystal Antoine ermann 18:00:00 Heart Rate 2015-08-10 Chrystal Ashtonan n 17:45:00 Respitory Rate 2015-08-10 Chrystal Ashton archana 17:45:00 Systolic (mm Hg) 2015-08-10 [facility] Mikel rmann 17:45:00 Diastolic (mm Hg) 2015-08-10 Chrystal Antoine ermann 17:45:00 BMI Calculated 2015-08-10 Chrystal Ashton archana 13:14:00 Weight 2015-08-10 Chrystal Ashtonan n 13:14:00 Temperature Oral 2015-08-03 98.5 F [facility] Mikel rmann (F) 14:50:00 Height 2015-08-03 180.34 cm Chrystal Padilla n 13:51:00 Procedures Procedure Date / Time Performing Clinician Source Performed VITRECTOMY 2022-01-24 14:57:00 [facility] POC GLUCOSE 2022-01-24 14:38:00 [facility] POCT URINALYSIS DIPSTICK 2021-10-31 19:16:00 Shefali Hooper [facility] POCT URINALYSIS DIPSTICK 2021-10-24 18:43:00 Andressa Puckett [facility] POCT HEMOGLOBIN A1C TEST 2021-10-10 18:23:00 Brody Hinds [facility] REFERRAL- REQUEST/RESPONSE 2021-05-28 05:01:00 Doctor Saldana , [facility] Name Medical Branch NOTICE OF PRIVACY 2021-03-26 18:27:[address] [facility] [place] [facility] CONSENT/REFUSAL FOR 2021-03-26 18:26:47 Doctor Shana [facility] DIAGNOSIS AND TREATMENT [facility] NOTICE OF PRIVACY 2020-12-18 16:26:[address] [facility] CONSENT/REFUSAL FOR 2020-12-18 16:25:51 Doctor Shana [facility] DIAGNOSIS AND TREATMENT [facility] ASSIGNMENT OF BENEFITS 2020-12-18 16:25:20 Doctor Shana [facility] REFERRAL- REQUEST/RESPONSE 2020-12-08 05:01:00 Doctor Unassigned , [facility] EKG-12 LEAD 2020-12-03 20:44:28 Greg Peacock [facility] NOTICE OF PRIVACY 2020-12-03 19:10:09 Doctor Unassigned, [facility] PRACTICES [facility] MRI BRAIN W WO CONTRAST 2020-05-05 18:29:00 [facility] 2020-05-05 17:10:00 Chloe [facility] TTE COMPLETE, WO CONTRAST, 2020-05-05 15:22:00 Vidal Ortiz [facility] W AGITATED SALINE ([id number]) POC GLUCOSE 2020-05-05 12:19:00 Chloe Minor HC COMPLETE BLD COUNT 2020-05-05 10:15:00 Mily [facility] W/AUTO DIFF BASIC METABOLIC PANEL 2020-05-05 10:15:00 Mily [facility] VITAMIN B12 LEVEL 2020-05-05 10:15:00 Vidal Ortiz [facility] VITAMIN B1 LEVEL, WHOLE 2020-05-05 10:15:00 [facility] BLOOD THYROID STIMULATING 2020-05-05 10:15:[address] [facility] HORMONE LIPID PANEL 2020-05-05 10:15:00 [facility]C 2020-05-05 10:15:00 [facility] SEDIMENT[facility] RATE 2020-05-05 10:15:00 [facility] RAPID HIV 1 & 2 2020-05-05 10:15:00 Vidal Ortiz spital SYPHILIS TREPONEMA SCREEN 2020-05-05 10:15:00 Vidal Ortiz [facility] WITH RPR CONFIRMATION (REVERSE ALGORITHM) ESTIMATED GFR 2020-05-05 10:15:00 Chloe Minor miroslavatal C-REACTIVE PROTEIN 2020-05-05 10:15:00 Vidal Ortiz [facility] POC GLUCOSE 2020-05-05 01:38:00 Chloe [facility] POC GLUCOSE 2020-05-04 22:14:00 [facility] URINE CULTURE 2020-05-04 20:33:00 [facility] URINALYSIS SCREEN AND 2020-05-04 20:33:00 Tom Means [facility] MICROSCOPY, WITH REFLEX TO CULTURE COVID-19 QUALITATIVE 2020-05-04 20:27:00 Tom Means [facility] RT-PCR ECG 12-LEAD 2020-05-04 20:21:[address] ANGIOGRAM NECK W WO 2020-05-04 19:46:05 Tom Means [facility] CONTRAST CT ANGIOGRAM HEAD W WO 2020-05-04 19:45:38 Tom Means [facility] CONTRAST CT STROKE BRAIN WO 2020-05-04 19:36:06 Tom Means [facility] CONTRAST HC COMPLETE BLD COUNT 2020-05-04 19:19:00 Tom Means [facility] W/AUTO DIFF PARTIAL THROMBOPLASTIN 2020-05-04 19:19:00 [facility] TIME (PTT) PROTHROMBIN TIME WITH INR 2020-05-04 19:19:00 [facility] COMPREHENSIVE METABOLIC 2020-05-04 19:19:00 [facility] PANEL ESTIMATED GFR 2020-05-04 19:19:00 [facility] Fabian [facility] [[facility]] CULTURE, URINE, 2017-08-27 00:00:00 [facility] [[facility]] CULTURE, URINE, 2017-08-21 00:00:00 [facility] [[facility]] CULTURE, URINE, 2017-06-09 00:00:00 [facility] ROUTINE CHILO - Endometrial laser [facility] ablation Limbal stem cell [facility] ORIF - Open reduction and [facility] [place] internal fixation of fracture Tendon operation [facility] History of Ankle [facility] History [facility] With Endometrial Ablation Plan of Care Planned Activity Planned Date Details Comments Source Future Scheduled 2022-02-01 Pneumococcal Vaccine: [facility] Test 18:59:30 Pediatrics (0 to 5 Years) and At-Risk Patients (6 to 64 Years) (1 - PCV) [code = Pneumococcal Vaccine: Pediatrics (0 to 5 Years) and At-Risk Patients (6 to 64 Years) (1 - PCV)] Future Scheduled 2022-02-01 Hepatitis C screening [facility] Test 18:59:30 (procedure) [code = 080538872] Future Scheduled 2022-02-01 SHINGLES VACCINES (1 Met [facility] Test 18:59:30 of 2) [code = SHINGLES VACCINES (1 of 2)] Future Scheduled 2022-02-01 Screening for [facility] Test 18:59:30 malignant neoplasm of cervix (procedure) [code = 708573124] Future Scheduled 2022-02-01 BREAST CANCER [facility] Test 18:59:30 SCREENING [code = BREAST CANCER SCREENING] Future Scheduled 2022-02-01 COLONOSCOPY SCREENING [facility] Test 18:59:30 [code = COLONOSCOPY SCREENING] Future Scheduled 2022-02-01 HEPATITIS B VACCINES Met [facility] Test 18:59:30 (1 of 3 - Risk 3-dose series) [code = HEPATITIS B VACCINES (1 of 3 - Risk 3-dose series)] Future Scheduled 2022-02-01 COVID-19 VACCINE (2 - [facility] Test 18:59:30 Booster for Joel series) [code = COVID-19 VACCINE (2 - Booster for Joel series)] Future Scheduled 2022-02-01 INFLUENZA VACCINE [facility] Test 18:59:30 [code = INFLUENZA VACCINE] Future Scheduled 2022-02-01 Pneumococcal Vaccine: [facility] Test 18:59:30 Pediatrics (0 to 5 Years) and At-Risk Patients (6 to 64 Years) (1 - PCV) [code = Pneumococcal Vaccine: Pediatrics (0 to 5 Years) and At-Risk Patients (6 to 64 Years) (1 - PCV)] Future Scheduled 2022-02-01 Hepatitis C screening [facility] Test 18:59:30 (procedure) [code = [id number]] Future Scheduled 2022-02-01 SHINGLES VACCINES (1 Met [facility] Test 18:59:30 of 2) [code = SHINGLES VACCINES (1 of 2)] Future Scheduled 2022-02-01 Screening for [facility] Test 18:59:30 malignant neoplasm of cervix (procedure) [code = [id number]] Future Scheduled 2022-02-01 BREAST CANCER [facility] Test 18:59:30 SCREENING [code = BREAST CANCER SCREENING] Future Scheduled 2022-02-01 COLONOSCOPY SCREENING [facility] Test 18:59:30 [code = COLONOSCOPY SCREENING] Future Scheduled 2022-02-01 HEPATITIS B VACCINES Met [facility] Test 18:59:30 (1 of 3 - Risk 3-dose series) [code = HEPATITIS B VACCINES (1 of 3 - Risk 3-dose series)] Future Scheduled 2022-02-01 COVID-19 VACCINE (2 - [facility] Test 18:59:30 Booster for Joel series) [code = COVID-19 VACCINE (2 - Booster for Joel series)] Future Scheduled 2022-02-01 INFLUENZA VACCINE Method [facility] Test 18:59:30 [code = INFLUENZA VACCINE] Future Scheduled 2022-02-01 Pneumococcal Vaccine: [facility] Test 18:59:30 Pediatrics (0 to 5 Years) and At-Risk Patients (6 to 64 Years) (1 - PCV) [code = Pneumococcal Vaccine: Pediatrics (0 to 5 Years) and At-Risk Patients (6 to 64 Years) (1 - PCV)] Future Scheduled 2022-02-01 Hepatitis C screening [facility] Test 18:59:30 (procedure) [code = [id number]] Future Scheduled 2022-02-01 SHINGLES VACCINES (1 Met [facility] Test 18:59:30 of 2) [code = SHINGLES VACCINES (1 of 2)] Future Scheduled 2022-02-01 Screening for [facility] Test 18:59:30 malignant neoplasm of cervix (procedure) [code = 000287792] Future Scheduled 2022-02-01 BREAST CANCER [facility] Test 18:59:30 SCREENING [code = BREAST CANCER SCREENING] Future Scheduled 2022-02-01 COLONOSCOPY SCREENING [facility] Test 18:59:30 [code = COLONOSCOPY SCREENING] Future Scheduled 2022-02-01 HEPATITIS B VACCINES Met [facility] Test 18:59:30 (1 of 3 - Risk 3-dose series) [code = HEPATITIS B VACCINES (1 of 3 - Risk 3-dose series)] Future Scheduled 2022-02-01 COVID-19 VACCINE (2 - [facility] Test 18:59:30 Booster for Joel series) [code = COVID-19 VACCINE (2 - Booster for Joel series)] Future Scheduled 2022-02-01 INFLUENZA VACCINE [facility] Test 18:59:30 [code = INFLUENZA VACCINE] Future Scheduled 2022-02-01 Pneumococcal Vaccine: [facility] Test 18:59:30 Pediatrics (0 to 5 Years) and At-Risk Patients (6 to 64 Years) (1 - PCV) [code = Pneumococcal Vaccine: Pediatrics (0 to 5 Years) and At-Risk Patients (6 to 64 Years) (1 - PCV)] Future Scheduled 2022-02-01 Hepatitis C screening [facility] Test 18:59:30 (procedure) [code = 090483699] Future Scheduled 2022-02-01 SHINGLES VACCINES (1 Met [facility] Test 18:59:30 of 2) [code = SHINGLES VACCINES (1 of 2)] Future Scheduled 2022-02-01 Screening for [facility] Test 18:59:30 malignant neoplasm of cervix (procedure) [code = 444747666] Future Scheduled 2022-02-01 BREAST CANCER [facility] Test 18:59:30 SCREENING [code = BREAST CANCER SCREENING] Future Scheduled 2022-02-01 COLONOSCOPY SCREENING [facility] Test 18:59:30 [code = COLONOSCOPY SCREENING] Future Scheduled 2022-02-01 HEPATITIS B VACCINES Met [facility] Test 18:59:30 (1 of 3 - Risk 3-dose series) [code = HEPATITIS B VACCINES (1 of 3 - Risk 3-dose series)] Future Scheduled 2022-02-01 COVID-19 VACCINE (2 - [facility] Test 18:59:30 Booster for Joel series) [code = COVID-19 VACCINE (2 - Booster for Joel series)] Future Scheduled 2022-02-01 INFLUENZA VACCINE [facility] Test 18:59:30 [code = INFLUENZA VACCINE] Future Scheduled 2022-02-01 Pneumococcal Vaccine: [facility] Test 18:59:30 Pediatrics (0 to 5 Years) and At-Risk Patients (6 to 64 Years) (1 - PCV) [code = Pneumococcal Vaccine: Pediatrics (0 to 5 Years) and At-Risk Patients (6 to 64 Years) (1 - PCV)] Future Scheduled 2022-02-01 Hepatitis C screening [facility] Test 18:59:30 (procedure) [code = 852558895] Future Scheduled 2022-02-01 SHINGLES VACCINES (1 Met [facility] Test 18:59:30 of 2) [code = SHINGLES VACCINES (1 of 2)] Future Scheduled 2022-02-01 Screening for [facility] Test 18:59:30 malignant neoplasm of cervix (procedure) [code = 619952880] Future Scheduled 2022-02-01 BREAST CANCER [facility] Test 18:59:30 SCREENING [code = BREAST CANCER SCREENING] Future Scheduled 2022-02-01 COLONOSCOPY SCREENING [facility] Test 18:59:30 [code = COLONOSCOPY SCREENING] Future Scheduled 2022-02-01 HEPATITIS B VACCINES Met [facility] Test 18:59:30 (1 of 3 - Risk 3-dose series) [code = HEPATITIS B VACCINES (1 of 3 - Risk 3-dose series)] Future Scheduled 2022-02-01 COVID-19 VACCINE (2 - [facility] Test 18:59:30 Booster for Joel series) [code = COVID-19 VACCINE (2 - Booster for Joel series)] Future Scheduled 2022-02-01 INFLUENZA VACCINE [facility] Test 18:59:30 [code = INFLUENZA VACCINE] Future Scheduled 2021-10-19 COVID-19 VACCINE (#1) [facility] Test 10:53:01 [code = COVID-19 VACCINE (#1)] Future Scheduled 2021-10-19 Pneumococcal Vaccine: [facility] Test 10:53:01 Pediatrics (0 to 5 Years) and At-Risk Patients (6 to 64 Years) (1 - PCV) [code = Pneumococcal Vaccine: Pediatrics (0 to 5 Years) and At-Risk Patients (6 to 64 Years) (1 - PCV)] Future Scheduled 2021-10-19 Hepatitis C screening [facility] Test 10:53:01 (procedure) [code = [id number]] Future Scheduled 2021-10-19 SHINGLES VACCINES (1 Met [facility] Test 10:53:01 of 2) [code = SHINGLES VACCINES (1 of 2)] Future Scheduled 2021-10-19 [facility]01 malignant neoplasm of cervix (procedure) [code = 766285095] Future Scheduled 2021-10-19 [facility] 10:53:01 SCREENING [code = BREAST CANCER SCREENING] Future Scheduled 2021-10-19 COLONOSCOPY SCREENING [facility] Test 10:53:01 [code = COLONOSCOPY SCREENING] Future Scheduled 2021-10-19 HEPATITIS B VACCINES Met [facility] Test 10:53:01 (1 of 3 - Risk 3-dose series) [code = HEPATITIS B VACCINES (1 of 3 - Risk 3-dose series)] Future Scheduled 2021-10-19 INFLUENZA VACCINE [facility] Test 10:53:01 [code = INFLUENZA VACCINE] Future Scheduled DIABETES: RETINAL EYE [facility] Test EXAM [code = DIABETES: RETINAL EYE EXAM] Future Scheduled DIABETIC FOOT EXAM [facility] Test [code = DIABETIC FOOT EXAM] Future [facility] [[facility] = [facility]INE MICROALBUMIN] Future Scheduled COVID-19 VACCINE (1) [facility] Test [code = COVID-19 VACCINE (1)] Future Scheduled Hepatitis C screening [facility] Test (procedure) [code = [id number]] Future [facility]uled [facility] malignant neoplasm of cervix (procedure) [code = 685161133] Future Scheduled [facility] SCREENING [code = BREAST CANCER SCREENING] Future Scheduled COLONOSCOPY SCREENING [facility] Test [code = COLONOSCOPY SCREENING] Future Scheduled [facility] [[facility] = SH[facility]LES VACCINES (#1)] Future Scheduled INFLUENZA VACCINE [facility] Test [code = INFLUENZA VACCINE] Encounters Start End Encounter Admission Attending Care Care Encounter Source Date/Time Date/Time Type Type Clinicians Facility Department ID [id number] Outpatient TravisANU sheridan [facility] [id number] Common 08:35:01 [facility] [address] [facility] 2021-11-27 Outpatient [facility] [id number] ME 10:51:18 [id number] [facility] 2021-10-16 Outpatient TravisANU sheridan [facility] [id number] Common 14:20:00 [facility] 83456 [facility] 2021-08-20 Outpatient TravisSTLMLC STLMLC Common 08:10:01 Luciano [facility] 2021-08-16 Outpatient Travis, STLMLC STLMLC Common 15:42:00 Luciano [facility] 2021-07-10 Outpatient Travis, STLMLC STLMLC Common 08:19:00 Luciano [facility] 2021-05-08 Outpatient Travis, STLMLC STLMLC Common 15:07:00 Luciano [facility] 2021-03-29 Outpatient DERESKA, [facility] [id number] [place] 16:38:20 [facility] 2021-03-14 Outpatient DERESKA, [facility] [id number] [place] 10:48:45 [facility] 2021-03-14 Outpatient Travis, STLMLC STLMLC Common 09:24:01 Luciano [facility] 2021-03-07 Outpatient Travis, STLMLC STLMLC Common 14:38:44 Luciano [facility] 2021-03-07 Outpatient Travis, STLMLC STLMLC Common 14:34:38 Luciano [facility] 2021-03-07 Outpatient Travis, STLMLC STLMLC Common 14:19:07 Luciano [facility] 2021-03-07 Outpatient Travis, STLMLC STLMLC Common 14:06:31 Luciano [facility] 2021-03-07 Outpatient Travis, STLMLC STLMLC Common 14:06:01 Luciano [facility] 2021-03-07 Outpatient Travis, STLMLC STLMLC Common 14:05:29 Luciano 11354 [facility] 2021-03-07 Outpatient Travis, STLMLC STLMLC Common 13:56:00 Luciano [facility] 2021-03-07 Outpatient Travis, STLMLC STLMLC [id number] Common 13:49:17 Luciano 07410 [facility] 2021-03-07 Outpatient Travis, STLMLC STLMLC Common 12:29:42 Luciano 71286 [facility] 2021-03-07 Outpatient Travis, STLMLC STLMLC [id number] Common 12:27:48 Luciano 69062 [facility] 2021-03-07 Outpatient Travis, STLMLC STLMLC Common 12:27:16 Luciano 23330 [facility] 2021-03-07 Outpatient Travis, STLMLC STLMLC Common 12:25:19 Luciano 33846 [facility] 2021-03-07 Outpatient Travis, STLMLC STLMLC Common 12:24:57 Luciano 55823 [facility] 2021-03-07 Outpatient Travis, STLMLC STLMLC Common 12:21:52 Luciano 65396 [facility] 2021-03-07 Outpatient Travis, STLMLC STLMLC Common 12:21:15 Luciano 95908 [facility] 2021-03-07 Outpatient Travis, STLMLC STLMLC Common 12:20:49 Luciano 22923 [facility] 2021-03-07 Outpatient Travis, STLMLC STLMLC [id number] Common 12:19:53 Luciano 13862 [facility] 2021-03-07 Outpatient Travis, STLMLC STLMLC [id number] Common 11:37:00 Luciano 90412 [facility] 2021-03-07 Outpatient Travis, STLMLC STLMLC Common 11:36:58 Luciano 52357 [facility] 2021-03-07 Outpatient Travis, STLMLC STLMLC [id number] Common 11:33:09 Luciano 15072 [facility] 2021-03-07 Outpatient Travis, STLMLC STLMLC [id number] Common 11:31:11 [facility] 64825 [facility] 2021-03-07 Outpatient Travis, STLMLC STLMLC [id number] Common 11:06:28 [facility] 87644 [facility] 2021-01-10 Outpatient BRADFORDSTERLING, [facility] [id number] [place] 10:36:54 [facility] 2021-01-10 [facility] [id number] [place] 09:52:14 [facility] 2020-12-[address] [facility] [id number] Univers 09:13:05 [facility] 2020-11-24 Outpatient [facility] [id number] [place] 15:05:59 SHEFALIFormerly [facility] 2020-11-24 Outpatient [facility] [id number] UT 14:12:16 SHFEALI [facility] 2020-11-24 Outpatient [facility] [id number] UT 13:57:46 SHEFALI [facility] 2020-11-13 Outpatient [facility] [id number] UT 12:16:17 SHEFALI [facility] 2022-04-24 2022-04-24 Outpatient [facility] [id number] [place] 11:00:00 11:00:00 Startupeando 2022-04-15 2022-04-15 Outpatient SFA SFA [id number] Lyle 15:35:32 15:35:32 0306 F Frank 2022-04-01 2022-04-01 Outpatient SFA SFA [id number] Lyle 15:48:00 15:48:00 0220 F Frank 2022-03-13 2022-03-13 (TEL) STLMLC STLMLC [id number] Co mmon 00:00:00 00:00:00 [facility] 2022-02-18 2022-02-18 (TEL) STLMLC STLMLC [id number] Co mmon 00:00:00 00:00:00 [facility] 2022-02-08 2022-02-08 OFFICE [facility] [id number] Co mmon 00:00:00 00:00:00 VISIT EST Spir it PT LEVEL 3 - [facility] 2022-02-08 2022-02-08 (TEL) [facility] [id number] Co mmon 00:00:00 00:00:00 [facility] 2022-01-24 2022-01-24 [facility] Fish, 1.2.840.1 [id number] Methodi 06:31:00 23:59:00 Encounter Tuyet H. 63927.1.[address] 3.430.2.7 Hospit a .3.196809 l .8 2022-01-24 2022-01-24 [facility] Fish, 1.2.840.1 [id number] 01614 Methodi 06:31:00 23:59:00 Encounter Tuyet H. 82520.1.[address] 3.430.2.7 Hospit a .3.725499 l .8 2022-01-24 2022-01-24 Surgery Fish, 1.2.840.1 [id number] 7635 Methodi 09:50:00 11:00:00 Tuyet H. 33851.1.1 654 s t 3.430.2.7 Hospit a .3.231010 l .8 2022-01-24 2022-01-24 Surgery Fish, 1.2.840.1 [id number] 1695 Methodi 09:50:00 11:00:00 Tuyet H. 55854.1.1 654 s t 3.430.2.7 Hospit a .3.841237 l .8 2022-01-24 2022-01-24 Anesthesia Ballivian, 1.2.840.1 [id number] Methodi 08:57:00 10:07:00 Event Aba 85242.1.[address] Faustino 3.430.2.7 Hosp ruiz .3.990607 l .8 2022-01-24 2022-01-24 Anesthesia Ballivian, 1.2.840.1 [id number] Methodi 08:57:00 10:07:00 Event Aba 34661.1.[address] Faustino 3.430.2.7 Hosp ruiz .3.510530 l .8 2022-01-24 2022-01-24 Travel 1.2.840.1 1.2.379.556 7472 [id number] Methodi 00:00:00 00:00:[address] 3.430.2.7 0.2.7.3.698 Ho spita .3.944603 084.8 l .8 2022-01-24 2022-01-24 Travel 1.2.840.1 1.2.111.956 3175 298370 Methodi 00:00:00 00:00:[address] 3.430.2.7 0.2.7.3.698 Ho spita .3.041033 084.8 l .8 2022-01-16 2022-01-16 OFFICE STLMLC STLMLC [id number] Co mmon 00:00:00 00:00:00 VISIT [facility] LEVEL 4 [facility] 2022-01-01 2022-01-01 (TEL) STLMLC STLMLC [id number] Co mmon 00:00:00 00:00:00 [facility] 2021-12-21 2021-12-21 (TEL) STLMLC STLMLC [id number] Co mmon 00:00:00 00:00:00 [facility] 2021-12-05 2021-12-05 Outpatient LAVERN [facility] [id number] UT 14:50:00 14:50:00 ANDRESSA SpanDeX 2021-11-14 2021-11-14 Telephone DARRYN Hinds 1.2.642.137 [id number] Univers 00:00:00 00:00:00 [facility] SEEC AB 350.1.13.10 it y of [place] 4.2.7.2.686 Lionel as DAMIAN?BLEA [phone] Al kori [address] MEDICAL OFFICE BUILDING 2021-10-31 2021-10-31 Office Michael [facility] 1.2.616.048 [id number] [place] 13:30:00 14:24:45 Visit Shefali SUGAR 350.1.13.58 Mikel alth [place] 9.2.7.2.686 PLA[address] 3 [phone] AND 5 WOMENS 2021-10-24 2021-10-24 Procedure Lavern [facility] 1.2.840.114 [id number] UT 13:40:00 14:27:30 Visit Andressa SUGAR 350.1.13.58 Mikel alth [place] 9.2.7.2.686 PLAZA 7 [phone] AND 5 WOMENS 2021-10-17 2021-10-17 OFFICE STLMLC STLMLC [id number] Co mmon 00:00:00 00:00:00 VISIT [facility] LEVEL 4 [facility] 2021-10-11 2021-10-11 (TEL) STLC STLMLC [id number] Co mmon 00:00:00 00:00:00 [facility] 2021-10-10 2021-10-10 [facility] [id number] Univers 13:30:00 14:23:09 [facility] 2021-10-10 2021-10-10 Office [facility] 1.2.840.114 [id number] Univers 13:30:00 14:23:09 Visit [facility] 350.1.13.10 it y of [place] 4.2.7.2.686 Lionel as DAMIAN?BLEA [phone] Al arabella[address] MEDICAL OFFICE BUILDING 2021-10-09 2021-10-09 (TEL) STLMLC STLMLC [id number] Co mmon 00:00:00 00:00:00 [facility] 2021 2021 (TEL) STLMLC STLMLC [id number] Co mmon 00:00:00 00:00:00 [facility] 2021-08-14 2021-08-14 (TEL) STLMLC STLMLC [id number] Co mmon 00:00:00 00:00:00 [facility] 2021-08-07 2021-08-07 Outpatient R CHAVEZ [facility] [id number] Univers 15:30:00 15:30:00 [facility] 2021-07-23 2021-07-23 Telephone Chavez MECAMILA 1.2.094.216 [id number] Univers 00:00:00 00:00:00 [facility] 350.1.13.10 it y of [place] 4.2.7.2.686 Lionel as DAMIAN?BLEA [phone] [address] MEDICAL OFFICE BUILDING 2021-07-18 2021-07-18 [facility]ICE [facility] [id number] Co mmon 00:00:00 00:00:00 VISIT [facility] LEVEL 4 [facility] 2021-05-29 2021-05-29 Outpatient R CHAVEZ [facility] [id number] Univers 10:30:00 10:30:00 [facility] 2021-05-28 2021-05-28 Orders Doctor AURELIO 1.2.840.114 [id number] Univers 00:00:00 00:00:00 Only Unassigned, BETY 350.1.13.10 [facility] 4.2.7.2.686 Lionel as [phone] [address] 2021-05-25 2021-05-25 (TEL) [facility] [id number] Co mmon 00:00:00 00:00:00 [facility] 2021-04-16 2021-04-[address] Spence [facility] 1.2.840.1 14 [id number] ME 00:00:00 00:00:00 Ct Spence SUGAR 350.1.13.58 [facility] 9.2.7.2.686 PLAZA 2 [phone] AND 2 WOMENS 2021-04-03 2021-04-03 Outpatient R CHAVEZ [facility] [id number] Univers 10:00:00 10:00:00 [facility] 2021-04-03 2021-04-03 OFFICE [facility] [id number] Co mmon 00:00:00 00:00:00 VISIT Spirit ESTAB PT - CHI LEVEL 4 [facility] 2021-03-26 2021-03-[address] [facility] ERT [id number] Univers 12:42:00 13:51:00 RASHMI ity of [facility] 2021-03-26 2021-03-26 Emergency [facility] 1.2.618.055 [id number] Univers 12:42:00 13:51:00 Rashmi PERRIN 350.1.13.10 i ty [facility] 4.2.7.2.686 [facility] [phone] [facility] 084 Branch 2021-03-26 2021-03-26 (TEL) [facility] [id number] Co mmon 00:00:00 00:00:00 Spirit - CHI [facility] 2021-03-26 2021-03-26 Orders Doctor AURELIO 1.2.840.114 [id number] Univers 00:00:00 00:00:00 Only Unassigned, BETY 350.1.13.10 ity of [place] [facility] 4.2.7.2.686 [facility] [phone] [facility] 009 Branch 2021-03-14 2021-03-[address] Spence [facility] 1.2.840.1 14 [id number] [place] 00:00:00 00:00:00 Ct Spence 350.1.13.58 Health [place] 9.2.7.2.686 PLAZA 7 [phone] AND 2 WOMENS 2021-03-12 2021-03-[address] Spence [facility] 1.2.840.1 14 [id number] [place] 00:00:00 00:00:00 Ct Spence 350.1.13.58 Health [place] 9.2.7.2.686 PLAZA 1 [phone] AND 2 WOMENS 2021-03-09 2021-03-[address] Spence [facility] 1.2.840.1 14 [id number] UT 00:00:00 00:00:00 Ct Spence 350.1.13.58 [facility] 9.2.7.2.686 PLAZA 1 [phone] AND 2 WOMENS 2021-03-07 2021-03-07 Outpatient R CHAVEZ [facility] [id number] Univers 14:30:00 14:30:00 BRODY [facility] 2021-03-06 2021-03-06 Telephone Chavez [facility] 1.2.360.969 [id number] Univers 00:00:00 00:00:00 [facility] 350.1.13.10 it y [facility] 4.2.7.2.686 Lionel as DAMIAN?BLEA [phone] [address] MEDICAL OFFICE BUILDING 2021-03-05 2021-03-05 OFFICE STLMLC STLMLC [id number] Co mmon 00:00:00 00:00:00 VISIT Spirit ESTAB PT - CHI LEVEL 4 [facility] 2021-03-05 2021-03-05 SUB ANNUAL STLMLC STLMLC [id number] Common 00:00:00 00:00:00 MCR Spirit WELLNESS - CHI VISIT [facility] 2021-03-01 2021-03-01 (TEL) STLMLC STLMLC [id number] Co mmon 00:00:00 00:00:00 [facility] 2021-02-28 2021-02-28 (TEL) STLMLC STLMLC [id number] Co mmon 00:00:00 00:00:00 [facility] CHI [facility] 2021-02-27 2021-02-27 (TEL) STLMLC STLMLC [id number] Co mmon 00:00:00 00:00:00 [facility] CHI [facility] 2021-02-26 2021-02-26 (TEL) STLMLC STLMLC [id number] Co mmon 00:00:00 00:00:00 [facility] 2021-01-03 2021-01-03 (TEL) STLMLC STLMLC [id number] Co mmon 00:00:00 00:00:00 [facility] CHI [facility] 2020-12-27 2020-12-27 (TEL) STLMLC STLMLC [id number] Co mmon 00:00:00 00:00:00 [facility] 2020-12-18 2020-12-18 Hospital Radiology [facility] 1.2.840.114 [id number] Univers 10:28:59 23:59:00 Encounter [place] 350.1.13.10 ity of [place]2.7.2.686 [place] [phone] [facility] 804 Branch 2020-12-18 2020-12-18 Outpatient R RADIOLOGY [facility] [id number] Univers 00:00:00 23:59:00 ity of [facility] 2020-12-18 2020-12-18 Orders Doctor AURELIO 1.2.840.114 [id number] Univers 00:00:00 00:00:00 Only Unassigned, BETY 350.1.13.10 ity of [place] [facility] 4.2.7.2.686 Lionel as [phone] [address] 2020-12-08 2020-12-08 Orders Doctor AURELIO 1.2.840.114 [id number] Univers 00:00:00 00:00:00 Only Unassigned, BETY 350.1.13.10 ity of [place] [facility] 4.2.7.2.686 Lionel as [phone] [address] 2020-12-07 2020-12-07 OFFICE STLMLC STLMLC [id number] Co mmon 00:00:00 00:00:00 VISIT [facility] LEVEL 4 [facility] 2020-12-07 2020-12-07 (TEL) STLMLC STLMLC [id number] Co mmon 00:00:00 00:00:00 [facility] 2020-12-06 2020-12-06 (TEL) STLMLC STLMLC [id number] Co mmon 00:00:00 00:00:00 [facility] 2020-12-05 2020-12-05 (TEL) STLMLC STLMLC [id number] Co mmon 00:00:00 00:00:00 [facility] 2020-12-04 2020-12-04 (TEL) [facility] [id number] Co mmon 00:00:00 00:00:00 [facility] 2020-12-04 2020-12-04 (TEL) [facility] [id number] Co mmon 00:00:00 00:00:00 [facility] 2020-12-03 2020-12-03 Emergency [facility], [facility] 1.2.848.054 [id number] [facility] 14:18:00 16:20:00 Greg Perrin 350.1.13.10 ity of [place] 4.2.7.2.686 [facility] [phone] [facility] 084 Branch 2020-12-03 2020-12-03 Orders Doctor CAREY 1.2.840.114 [id number] Univers 00:00:00 00:00:00 Only Unassigned, BETY 350.1.13.10 [facility] 4.2.7.2.686 [facility] [phone] [facility] 009 Branch 2020-11-27 2020-11-27 Orders Michael [facility] 1.2.341.343 [id number] [place] 00:00:00 00:00:00 Only Shefali SUGAR 350.1.13.58 alth [place] 9.2.7.2.686 PLAZA 2 [phone] AND 5 WOMENS 2020-11-27 2020-11-[address] Spence [facility] 1.2.840.1 14 [id number] ME 00:00:00 00:00:00 Ct Sp[place] 350.1.13.58 [facility] [place] 9.2.7.2.686 PLAZA 3 [phone] AND 2 WOMENS 2020-11-24 2020-11-24 Office Michael [facility] 1.2.074.760 [id number] [place] 14:14:20 15:06:05 Visit Shefali SUGAR 350.1.13.58 He alth [place] 9.2.7.2.686 PLAZA 2 [phone] AND 5 WOMENS 2020-11-10 2020-11-10 (TEL) STLMLC STLMLC [id number] Co mmon 00:00:00 00:00:00 [facility] 2020-10-26 2020-10-26 OFFICE STLMLC STLMLC [id number] Co mmon 00:00:00 00:00:00 VISIT [facility] LEVEL 4 [facility] 2020-10-26 2020-10-26 (TEL) STLMLC STLMLC [id number] Co mmon 00:00:00 00:00:00 [facility] 2020-10-12 2020-10-12 Outpatient STLMLC STLMLC [id number] Common 00:00:00 00:00:00 [facility] 2020-09-28 2020-09-28 Documentat Nida Wheeler 1.2.840.1 [id number] Methodi 00:00:00 00:00:[address] 3.430.2.7 Hospit a .3.178178 l .8 2020-08-16 2020-08-16 [facility] 1.2.639.150 [id number] Univers 00:00:00 00:00:00 Adriana Perrin 350.1.13.10 ashkan [facility] 4.2.7.2.686 Kassidy Hernandesessio [phone] [address] 2020-07-19 2020-07-19 Outpatient [facility] [id number] [facility] 09:00:00 09:00:00 ADRIANA pierce [facility] 2020-06-22 2020-06-22 Office Nida Wheeler 1.2.840.1 [id number] Methodi 09:54:22 10:40:[address] 3.430.2.7 Hospit a .3.966454 l .8 2020-06-22 2020-06-22 Travel 1.2.840.1 1.2.026.620 0843 [id number] Methodi 00:00:00 00:00:[address] 3.430.2.7 0.2.7.3.698 Ho spita .3.647693 084.8 l .8 2020-06-21 2020-06-21 Office Adriana Carney [facility] 1.2.840.11 4 [id number] Univers 14:30:27 16:08:05 Visit Goldie Huber 350.1.13.10 ity [facility] [place].2.[place] [phone] [address] 2020-06-21 2020-06-21 Outpatient R YOBANI [facility] [id number] Univers 15:00:00 15:00:00 GOLDIE stan [facility] 2020-06-21 2020-06-21 Telephone [facility] 1.2.840.114 [id number] [facility] 00:00:00 00:00:00 Adriana Perrin 350.1.13.10 i ty [facility] [place]7.2.[place] [phone] Al dical [address] 2020-06-01 2020-06-01 Outpatient STLMLC STLMLC [id number] Common 00:00:00 00:00:00 [facility] 2020-06-01 2020-06-01 Outpatient STLMLC STLMLC [id number] Common 00:00:00 00:00:00 [facility] 2020-05-30 2020-05-30 Travel 1.2.840.1 1.2.383.628 [id number] Methodi 00:00:00 00:00:[address] 3.430.2.7 0.2.7.3.698 Ho spita .3.682685 084.8 l .8 2020-05-26 2020-05-26 Outpatient STLMLC STLMLC [id number] Common 00:00:00 00:00:00 [facility] 2020-05-17 2020-05-17 Outpatient STLMLC STLMLC [id number] Common 00:00:00 00:00:00 [facility] 2020-05-04 2020-05-05 Emergency Kingsley Corado 1.2.840.1 [id number] Methodi 13:01:00 16:43:00 Chloe Minor 07237.1.[address] 3.430.2.7 Hospit a .3.369093 l .8 2020-05-04 2020-05-04 Travel 1.2.840.1 1.2.206.729 7248 [id number] Methodi 00:00:00 00:00:[address] 3.430.2.7 0.2.7.3.698 Ho spita .3.472261 084.8 l .8 2020-04-14 2020-04-14 Outpatient STLMLC STLMLC [id number] Common 00:00:00 00:00:00 [facility] 2020-04-10 2020-04-10 Outpatient STLMLC STLMLC [id number] Common 00:00:00 00:00:00 [facility] 2020-03-31 2020-03-31 Outpatient STLMLC STLMLC [id number] Common 00:00:00 00:00:00 [facility] 2020-03-23 2020-03-23 Outpatient STLMLC STLMLC [id number] Common 00:00:00 00:00:00 [facility] 2020-03-23 2020-03-23 Outpatient STLMLC STLMLC [id number] Common 00:00:00 00:00:00 [facility] 2020-03-14 2020-03-14 Outpatient STLMLC STLMLC [id number] Common 00:00:00 00:00:00 [facility] 2020-03-07 2020-03-07 Outpatient STLMLC STLMLC [id number] Common 00:00:00 00:00:00 [facility] 2020-02-28 2020-02-28 Outpatient STLMLC STLMLC [id number] Common 00:00:00 00:00:00 [facility] 2020-02-24 2020-02-24 Outpatient STLMLC STLMLC [id number] Common 00:00:00 00:00:00 [facility] 2020-02-23 2020-02-23 Outpatient STLMLC STLMLC [id number] Common 00:00:00 00:00:00 [facility] 2020-02-23 2020-02-23 Outpatient STLMLC STLMLC [id number] Common 00:00:00 00:00:00 [facility] 2019-11-24 2019-11-25 Outpt Diag nullFlavo [facility] [id number] Memoria 14:28:00 04:59:00 Services r Outpatient 03 l [facility] 2019-11-24 2019-11-25 Outpt Diag nullFlavo [facility] [id number] Memoria 14:28:00 04:59:00 Services r Outpatient 03 l Imaging [facility] 2019-11-24 2019-11-24 Outpatient Etelvina, MHOIP MHOIP [id number] 09:28:00 23:59:00 Rena Clements 2019-11-11 2019-11-11 Outpatient STLMLC STLMLC [id number] Common 00:00:00 00:00:00 [facility] 2019-11-02 2019-11-02 Outpatient STLMLC STLMLC [id number] Common 00:00:00 00:00:00 [facility] 2019-11-02 2019-11-02 Outpatient STLMLC STLMLC [id number] Common 00:00:00 00:00:00 [facility] 2019-10-27 2019-10-27 Outpatient [facility] [id number] Common 14:10:00 14:10:[address] [facility] [address] [facility] 2019-10-27 2019-10-27 Outpatient [facility] [id number] Common 10:59:00 10:59:[address] [facility] [address] Sp[address] [facility] 2019-10-12 2019-10-12 Outpatient [facility] [id number] Common 08:20:00 08:20:00 [address] [place] [address] [facility] 2019-09-22 2019-09-22 [facility] [id number] Common 08:30:00 08:30:00 [address] [place] [address] [facility] 2019-08-10 2019-08-10 [facility] [id number] Common 13:30:00 13:30:00 [address] [place] [address] [facility] 2019-04-02 2019-04-02 [facility] [id number] Common 15:07:00 15:07:00 [address] [address] [facility] 2019-03-16 2019-03-16 [facility] [id number] Common 17:04:00 17:04:00 [address] [facility] 2018-12-03 2018-12-03 [facility] [id number] Common 16:41:00 16:41:00 [address] [address] [facility] 2018-11-18 2018-11-18 [facility] [id number] Common 08:00:00 08:00:00 [address] [address] [facility] 2018-07-22 2018-07-22 [facility] [id number] Common 08:30:00 08:30:00 [address] [facility] 2018-06-10 2018-06-10 [facility] [id number] Common 09:53:00 09:53:00 [address] [place] [address] [facility] 2018-03-23 2018-03-23 [facility] [id number] Common 14:00:00 14:00:00 [address] [facility] 2018-03-19 2018-03-19 [facility] [id number] Common 10:45:00 10:45:00 [address] [facility] 2017-11-10 2017-11-10 [facility] [id number] Common 10:15:00 10:15:00 [address] [facility] 2017-11-06 2017-11-06 [facility] [id number] Common 08:00:00 08:00:00 [address] [address] [facility] 2017-09-23 2017-09-23 [facility] [id number] Common 16:07:00 16:07:00 [address] [address] [facility] 2017-09-03 2017-09-03 Appointmen [place] 4 [id number] [place] 11:00:00 11:00:00 t; [facility] 2017-08-27 2017-08-27 Appointmen [place], [facility] 4 [id number] [place] 14:10:00 14:10:00 t; [facility] ans [employer] 2017-08-21 2017-08-21 Appointmen [facility], [facility] 4 [phone] [place] 10:10:00 10:10:00 t; [facility] [place] KARISSA CLEANING 2017-08-14 2017-08-14 Appointmen HALBROOK, UTP UroGynecolo 4 [id number] [place] 11:00:00 11:00:00 t; KARISSA CLEANING gy Center Ph [facility] ans KARISSA CLEANING 2017-07-31 2017-07-31 Appointmen HALBROOK, UTP UroGynecolo 4 [id number] [place] 14:10:00 14:10:00 t; KARISSA CLEANING gy Center Ph [facility] [place] ans KARISSA CLEANING 2017-07-24 2017-07-24 Appointmen HALBROOK, UTP UroGynecolo 4 [id number] [place] 13:20:00 13:20:00 t; KARISSA CLEANING Center sadi HOOPER [facility] mar KARISSA CLEANING 2017-07-17 2017-07-17 Appointmen BRADFORDHUNGJARRETT, UTP UroGynecolo 4 [id number] [place] 14:10:00 14:10:00 t; KARISSA CLEANING gy [facility] mar KARISSA CLEANING 2017-07-03 2017-07-03 Appointmen UROGYN1, [facility] Women's [id number] [place] 09:00:00 09:00:00 t; [facility] Physic i UROGYN1, [facility] DERESKA 2017-06-26 2017-06-26 [facility]HAEL, [facility] UroGynecolo 4 [id number] [place] 09:00:00 09:00:00 t; KARISSA CLEANING [facility] KARISSA CLEANING 2017-06-25 2017-06-25 [facility] 13 [id number] Common 09:30:00 09:30:00 t [employer] [facility] it [employer] [facility] 2017-06-19 2017-06-19 Appointguerita HOOPER, UTP UroGynecolo 4 [id number] [place] 15:20:00 15:20:00 t; KARISSA CLEANING [facility] KARISSA CLEANING 2017-06-12 2017-06-12 Appointguerita BRADFORDHUNGJARRETT, UTP UroGynecolo 4 [id number] [place] 13:20:00 13:20:00 t; KARISSA CLEANING gy Center [facility] KARISSA [facility] 2017-06-09 2017-06-09 [facility] HALROCHELLE, [facility] UTP [id number] [place] 09:20:00 09:20:00 t; KARISSA CLEANING Phys ici HALROCHELLE, ans KARISSA CLEANING 2016-12-19 2016-12-19 Appointmen MICHAEL, UTP UTP [id number] [place] 10:10:00 10:10:00 t; KARISSA CLEANING Phys ici HALROCHELLE, ans KARISSA CLEANING 2016-11-28 2016-11-28 Appointmen MICHAEL, UTP UTP [id number] [place] 10:10:00 10:10:00 t; KARISSA CLEANING Phys mar Abbott NP 2016-09-12 2016-09-12 [facility] [id number] [place] 13:20:00 13:20:00 t; KARISSA CLEANING Phys mar Abbott NP 2016-04-01 2016-04-01 [facility] [id number] Memoria 17:43:00 23:41:00 r [place] 02 l [place] 2016-04-01 2016-04-01 [facility] [id number] Memoria 17:43:00 23:41:00 r [place] 02 l [place] 2016-04-01 2016-04-01 Outpatient Julio C Rutherford SL SL [id number] [id number] 11:43:00 17:41:00 Aaronrasheed 2015-11-30 2015-11-30 [facility] [id number] [place] 09:00:00 09:00:00 t; KARISSA CLEANING Phys kayla HOOPER, mar CLEANING NP 2015-10-20 2015-10-20 [facility] [id number] [place] 10:10:00 10:10:00 t; Preeti CARTER ans NINA, M.D. 2015-09-21 2015-09-21 [facility] ALVERN [facility] UTP [id number] [place] 13:00:00 13:00:00 t; Preeti CARTER ans NINA, M.D. 2015-08-10 2015-08-10 OBS [facility] [id number] Memoria 12:24:00 19:42:00 Surgery r [place] 00 l [place] 2015-08-10 2015-08-10 OBS [facility] [id number] Memoria 12:24:00 19:42:00 Surgery r [place] 00 l [place] 2015-08-10 2015-08-10 Outpatient CASSIE PuckettSL SL [id number] 07:24:00 14:42:00 Andressa Guerrero 2015-08-10 2015-08-10 [facility] LAVERN [facility] UTP [id number] [place] 09:30:00 09:30:00 t; Preeti CARTER ans NINA, M.D. 2015-08-02 2015-08-02 [facility] [id number] [place] 08:30:00 08:30:00 t; Preeti CARTER ans NINA, M.D. 2015-07-05 2015-07-05 [facility]ERN [facility] UTP [id number] [place] 08:30:00 08:30:00 t; Preeti CARTER ans NINA, M.D. 2015-04-28 2015-04-29 Outpt Diag [facility]Flavo [facility] [id number] Memoria 15:30:00 04:59:00 Services r Outpatient 02 l Imaging - Randy n Gosia 2015-04-28 2015-04-29 Outpt Diag nullFlavo [facility] [id number] Memoria 15:30:00 04:59:00 Services r Outpatient 02 l Imaging - Randy n Gosia 2015-04-28 2015-04-28 Outpatient Lavern, [id number] 10:30:00 23:59:00 Andressa [id number] Yolanda [id number] 5.101 2011-09-02 2011-09-02 [facility] [id number] [facility] 08:48:00 08:48:00 00 antony English 2011-09-02 2011-09-02 AUNDREA FAY FAY [id number] Memoria 08:48:00 08:48:00 00 antony English Results Test Description Test Time Test Comments Results Result Comments Source CULTURE, URINE 2022-04-18 SPECIMEN NUMBER: 11:58:21 [id number] CULTURE, URINE SPECIMEN NUMBER: [id number] SPECIMEN COMMENT: URINE SOURCE: URINE REPORT STATUS: FINAL FINAL REPORT: 04/18/2022 10-50,000 CFU/ML UROGENITAL ENZO PRESENT NO COMMON PATHOGENS [facility] has important pathology staff changes effective 04/10/2022. New pathology staff will provide uninterrupted, excellent patient care and clinical consultation. See URL: [email or web address]. UNLESS OTHERWISE INDICATED, ALL TESTING PERFORMED AT [facility], [facility]. [address] [place] [address] METAL CLEANER: LIBIA HEMPHILL M.D. CLIA NUMBER [id number] [place]. [id number] CULTURE, URINE 2022-04-04 SPECIMEN NUMBER: 16:03:59 [id number] CULTURE, URINE SPECIMEN NUMBER: [id number] SOURCE: URINE REPORT STATUS: FINAL ISOLATE NUMBER [...] nalis and Trichomonas vaginalis nucle ic acid. [facility] has important patho logy staff changes effective 04/10. New pathology staff will provide uninterrupted, excellent patient care and clinical co nsultation. See URL: [email or web address]. UNLESS OTHERWISE INDIC ATED, ALL TESTING PERFORMED AT [facility], [facility]. [address] [place] [address] 7875 4 METAL CLEANER: ALEX LIAO M.D. CLIA NUMBER [id number] [place]. [id number] POC [id number] 14:39:00 Test Item Value Reference Range Interpretation Comments POC glucose (test code = 237 mg/dL 65-99 H Ope rator Name: [facility] 12522-2) AdamDevice ID: [id number] able: [facility] Notified loan expeditor Interpretation (test Abnormal code = 30703-2) [facility] [id number] 14:39:00 Test Item Value Reference Range Interpretation Comments POC glucose (test code = 237 mg/dL 65-99 H Ope rator Name: [facility] 72772-9) AdamDevice ID: [id number] able: [facility] Notified loan expeditor Interpretation (test Abnormal code = 88826-1) [facility] [id number] 14:39:00 Test Item Value Reference Range Interpretation Comments POC glucose (test code = 237 mg/dL 65-99 H Ope rator Name: [facility] 84711-6) Adam[employer] ID: [id number] able: TM Notified loan expeditor Interpretation (test Abnormal code = 14617-6) [facility] [id number] 14:39:00 Test Item Value Reference Range Interpretation Comments POC glucose (test code = 237 mg/dL 65-99 H Ope rator Name: [facility] 58441-1) AdamDevice ID: [id number] able: [facility] Notified loan expeditor Interpretation (test Abnormal code = 42256-1) [facility]2022-12-15 14:39:00 Test Item Value Reference Range Interpretation Comments POC glucose (test code = 237 mg/dL 65-99 H Ope rator Name: [facility] 82117-0) AdamDevice ID: [id number] able: [facility] Notified loan expeditor Interpretation (test Abnormal code = 80785-5) [facility] urinalysis dipstick manually [id number] 19:16:00 Test Item Value Reference Range Interpretation Comments Glucose, UA (test code 1000 mg/dL Negative A = 6079417) Bilirubin, UA (test Negative Negative code = 2716205) Ketones, Urine (test Negative Negative, Trace code = 43599-9) Spec Grav, UA (test code = 526668429) Blood, UA (test code = Mod 131755615) pH, UA (test code = 5.0-8.5 8647729) Protein, UA (test code Negative Negative, Trace, = 1657330) 200(+2)mg/dL, 15/mg/dL Urobilinogen, UA (test See_Comment [Aut omated code = 0261927) message] The system which generated this result transmitted reference range : 0.2. The refere nce range was not u sed to interpret th is result as normal/abnormal . Nitrite, UA (test code Negative Negative, Trace = 1539051) Leukocytes, UA (test Negative Negative, Trace code = 9683305) Lab Interpretation Abnormal (test code = 05337-9) [facility] urinalysis dipstick manually [id number] 18:43:00 Test Item Value Reference Range Interpretation Comments Glucose, UA (test code 500 mg/dL Negative A = 7352809) Bilirubin, UA (test Negative Negative code = 6960347) Ketones, Urine (test Negative Negative, Trace code = 95395-8) Spec Grav, UA (test code = 707144616) Blood, UA (test code = Trace 955428018) pH, UA (test code = 5.0-8.5 5351526) Protein, UA (test code Negative Negative, Trace, = 8806420) 200(+2)mg/dL, 15/mg/dL Urobilinogen, UA (test See_Comment [Aut omated code = 7741761) message] The system which generated this result transmitted reference range : 0.2. The refere nce range was not u sed to interpret th is result as normal/abnormal . Nitrite, UA (test code Negative Negative, Trace = 6812128) Leukocytes, UA (test Negative Negative, Trace code = 7638594) Lab Interpretation Abnormal (test code = 39461-8) [facility] HEMOGLOBIN A1C [id number] 18:23:00 Test Item Value Reference Range Interpretation Comments POCT HBA1C (test code = 4548-4) 14 % 4-6 A Lab Interpretation (test code = Abnormal 78860-2) [facility] HEMOGLOBIN A1C [id number] 18:23:00 Test Item Value Reference Range Interpretation Comments POCT HBA1C (test code = 4548-4) 14 % 4-6 A Lab Interpretation (test code = Abnormal 96681-8) [facility] [id number] 00:09:04 Test Item Value Reference Range Interpretation Comments Ventricular rate (test code = 253) Atrial rate (test code = 255) UT interval (test code = 266) QRSD interval [...] abnormality no longer evident in Lateral leads[facility], (w Contrast, Strain and 3D if needed)2020-05-05 21:56:13 Test Item Value Reference Range Interpretation Comments AoV Area, Vmax (test 3.00 cm2 code = 7397906891) AoV Area, VTI (test 2.90 cm2 code = 5773372921) AoV Mean PG (test code mmHg = 0977847455) AoV Peak PG (test code mmHg = 3719515065) AoV Vmax (test code = 1.31 m/s 1705845846) AoV VTI (test code = 0.26 m 7892679806) IVS,d (test code = 1.03 cm 6412504463) IVS/LVPW,2D (test code = 7535939301) Left Atrium Dimension 4.40 cm Anterior (test code = 0740712758) LV,d (test code = 5.15 cm 2268522233) LV EF,2D (test code = 55.90 % 8965317210) LV,s (test code = 3.92 cm 1688014715) LVOT area (test code = 3.14 cm2 6725434818) LVOT Diam,S (test code 2.00 cm = 4244070550) LVOT Vmax (test code = 1.25 m/s 4772260232) LVOT VTI (test code = 0.24 m 6799627222) LVPWD,d (test code = 0.86 cm 8512954942) PV Pk Grad (test code = mmHg 9288320043) PV VMAX (test code = 0.90 m/s 5624868815) RVOT Vmax (test code = 0.78 m/s 3496895657) TR Vpeak (test code = 2.34 mm/s 5587762405) MV E A ratio (test code = 0401759375) TR pk grad (test code = mmHg 2680413605) MR Vmax (test code = 4.27 m/s 9560713806) MR peak grad (test code mmHg = 2279094161) E wave decelartion time msec (test code = 9539368807) MV Peak A Sam (test 0.87 m/s code = 0982436540) MV valve area p 1/2 3.17 cm2 method (test code = 8567816576) MV Peak E Sam (test 0.83 m/s code = 3419273461) MV stenosis pressure 69.31 ms 1/2 time (test code = 4034494398) LVOT stroke volume 0.75 cm3 (test code = 0645440713) AV LVOT peak gradient mmHg (test code = 7539063961) Ao Root,d,2D (test code 3.00 cm = 1048478264) LV SYS VOL (test code = 66.72 ml 2593600912) LV LICONA VOL (test code 126.64 ml = 9509351717) LV SV Teich 2D (test 59.92 ml code = 9919279409) LV Vol s Teich PSAX 66.72 ml (test code = 5666593552) RVOT pk grad (test code mmHg = 1210445794) AoV Vmn (test code = 5786617262) LV FS Teich 2D (test code = 5003646061) MV AE ratio (test code = 2542903670) LV FS Cube 2D (test code = 6753739305) LVOT Vmn (test code = 2609891129) Aov area Vmn (test code 2.80 cm2 = 5429656132) LVOT mean grad (test mmHg code = 2313182334) MAX Pred HR (test code = 9903038918) 85 of MPHR (test code = 6562332683) Ao d LA s ratio (test code = 3975483792) Calc MPHR (test code = bpm 0967247520) LV SV Cube 2D (test 76.35 ml code = 1559085463) LV vol d cube 2D (test 136.59 ml code = 5179465097) LV vol s cube 2D (test 60.24 ml code = 4214709836) MV Decel slope (test 3.45 m/s2 code = 7840462668) Pred Exer Dur R1 (test code = 0829035940) Pred METS R1 (test code = 2317359780) Velocity Ratio (V1/V2) 0.95 m/s (test code = 4689) EF (test code = 47.32 % 8791636062) E/A ratio (test code = 9273286997) LVOT VTI (CM) (test 24.00 cm code = 3452728476) MARIOLA (test code = MARIOLA) Normal left ventricular size and function with an EF~ 55% to 60%.Normal right ventricular size and function.Structurally normal cardiac valves.Mild mitral regurgitation. Left atrial enlargement. Normal pericardium with no effusion.Grade 1 diastolic dysfunction. [facility] Brain W Wo [id number] 18:34:06EXAM: MRI BRAIN W WO CONTRAST CLINICAL [...] is no enhancing lesion in the brain. [facility]-[id number] Interface, Radiology Results [facility] 05/05/2020 1:37 PM CDT EXAM: MRI BRAIN W WO CONTRASTCLINICAL HISTORY: Stroke follow up, Vision loss monocular, Left eye vision lossTECHNIQUE: Multiplanar and multisequence MRI imaging of the brain was obtained with and without con trast.COMPARISON: CT/CTA brain, 05/04/2020FINDINGS:No diffusion restriction to suggest acute infarct.Parenchymal volume is within normal limits.Minimal scattered white matter chronic small vessel ischemic changes.There is no abnormal parenchymal or leptomeningeal enhancement. No acute intracranial hemor rhage, mass, hydrocephalus, or extra-axial fluid collection identified.Although [...] There is no enhancing lesion in the brain.[facility]-[id number] HospitalUrine [id number] 20:46:09 Test Item Value Reference Range Interpretation Comments Urine culture (test SEE COMMENT Bacteriu summer screen code = 4348757) negative. [facility] Wo [id number] 19:49:34EXAMINATION: CT ANGIOGRAM HEAD W WO CONTRAST [...] occlusion or aneurysm.[id number] Neck W Wo [id number] 19:48:26 EXAMINATION: CT ANGIOGRAM NECK W WO [...] criteriaVertebral artery patency.[id number] HospitalCT Stroke Brain Wo Wevipzyh5310-52-03 19:42:38EXAMINATION: CT STROKE BRAIN WO CONTRAST CLINICAL [...] 1441 hours on 05/04/2020 who verbalized understanding. [facility]- [id number] Interface, Radiology Results - 05/04/2020 2:45 PM [...] at 1441 hours on 05/04/2020 who verbalized understanding.[facility]-[id number] Hospital[[facility]] CULTURE, URINE, [id number] 14:25:01 Test Item Value Reference Range Interpretation Comments ORGANISM (test Escherichia coliEnterococcus code = 699-9) Species FINAL REPORT 50,000 - 100,000 CFU/mL (test code = Escherichia coli 10,000 - FINAL REPORT) 50,000 CFU/mL EnterococcusSpecies 10,000 - 50,000 CFU/mL Skin Enzo [facility][H] [id number] 14:25:01 Test Item Value Reference Range Interpretation Comments ORGANISM (test code = Enterococcus 699-9) Species Ampicillin (test code - S = Ampicillin) Levofloxacin (test - S code = Levofloxacin) Nitrofurantoin (test - S code = Nitrofurantoin) Tetracycline (test - S code = Tetracycline) Vancomycin (test code SEE NOTES S S= Latoya ceptible, = Vancomycin) R= Resistant, I= Intermediate, N/A= Not Applicable [facility][H] [id number] 14:25:01 Test Item Value Reference Range Interpretation [...] Tetracycline (test code = - S Tetracycline) [facility][O] Urine Dipstick (In Office)2017-08-27 15:29:00 Test Item Value Reference Range Interpretation Comments LEUKOCYTES (test code = LEUKOCYTES) 2+ A NITRITE; Normal (test code = 49211-5) neg N UROBILINOGEN; Normal (test code = 0.2 N 16729-9) PROTEIN; Normal (test code = 40995-3) neg N pH (test code = pH) 6.5 N URINE BLOOD; Abnormal (test code = trace A 89894-9) SPECIFIC GRAVITY; Normal (test code = 1.020 N 2965-2) KETONES; Normal (test code = 38941-9) neg N BILIRUBIN; Normal (test code = 36611-5) neg N GLUCOSE; Normal (test code = 1547-9) neg N [facility]] CULTURE, URINE, [id number] 15:37:01 Test Item Value Reference Range Interpretation Comments ORGANISM (test code = Escherichia coli 699-9) FINAL REPORT (test 50,000 - 100,000 CFU/mL code = FINAL REPORT) Escherichia coli . 50,000 - 100,000 CFU/mL [facility][H] [id number] 15:37:01 Test Item Value Reference Range Interpretation [...] Resi stant, I= Intermediate, N/A= Not Applicable [facility][O] Urine Dipstick (In Office)2017-08-21 12:24:00 Test Item Value Reference Range Interpretation Comments LEUKOCYTES (test code = LEUKOCYTES) 2+ A NITRITE; Normal (test code = 74287-7) NEG N UROBILINOGEN; Normal (test code = 0.2 N 43571-9) PROTEIN; Abnormal (test code = 91605-1) 30 MG A pH (test code = pH) 5.5 N URINE BLOOD; Abnormal (test code = 2+ A 51071-4) SPECIFIC GRAVITY; Normal (test code = 1.030 N 2965-2) KETONES; Normal (test code = 13241-9) NEG N BILIRUBIN; Normal (test code = 84909-4) NEG N GLUCOSE; Normal (test code = 1547-9) NEG N [facility][O] Urine Dipstick (In Office)2017-06-09 10:06:00 Test Item Value Reference Range Interpretation Comments LEUKOCYTES (test code = LEUKOCYTES) 2+ A NITRITE; Normal (test code = 62642-8) NEG N UROBILINOGEN; Normal (test code = 0.2 N 93247-8) PROTEIN; Normal (test code = 98294-5) NEG N pH (test code = pH) 7.0 N URINE BLOOD; Abnormal (test code = 2+ A 22644-9) SPECIFIC GRAVITY; Normal (test code = 1.010 N 2965-2) KETONES; Normal (test code = 53675-2) NEG N BILIRUBIN; Normal (test code = NEG N 70400-1) GLUCOSE; Abnormal (test code = 1547-9) 250 MG A [facility]] BV/ VAGINITIS PANEL DNA PROBE [id number] 09:20:01 Test Item Value Reference Range Interpretation Comments Trichomonas vaginalis DNA (test code Negative Negative = 26318-8) Gardnerella vaginalis DNA; Abnormal Positive Negative A (test code = 6410-5) Jacques sp. DNA; Abnormal (test code Positive Negative A = 13854-6) [facility]] CULTURE, URINE, [id number] 09:20:01 Test Item Value Reference Range Interpretation Comments ORGANISM (test code = Escherichia coli 699-9) FINAL REPORT (test >100,000 CFU/mL code = FINAL REPORT) Escherichia coli 10,000 - 50,000 CFU/mL Skin [facility][H] [id number] 09:20:01 Test Item Value Reference Range Interpretation Comments ORGANISM (test code Escherichia coli = 699-9) Ciprofloxacin (test .75 S code = Ciprofloxacin) Levofloxacin (test 1.5 S code = Levofloxacin) Trimethoprim/Sulfame 32 R thoxazole (test code = Trimethoprim/Sulfame thoxazole) Ceftriaxone (test .094 S S= Suscept ible, code = Ceftriaxone) R= Resis tant, I= Intermediate, N/A= Not Applicable ME PhysiciansBODY [id number] 20:20:00 Test Item Value Reference Range Interpretation Comments WBC BF (test code = WBC BF) 980 [facility]2017-02-20 20:20:00 Test Item Value Reference Range Interpretation Comments Lymph BF (test code = Lymph BF) 44 [facility]2017-02-20 20:20:00 Test Item Value Reference Range Interpretation Comments Segs BF (test code = Segs BF) 56 [facility]2017-02-20 20:20:00 Test Item Value Reference Range Interpretation Comments Eos BF (test code = Eos BF) 0 [facility]2017-02-20 20:20:00 Test Item Value Reference Range Interpretation Comments Macrophage BF (test code = Macrophage 0 BF) [facility]2017-02-20 20:20:00 Test Item Value Reference Range Interpretation Comments Color BF (test code = Yellow (04/01/16 2:20 Color BF) PM) [facility]2017-02-20 20:20:00 Test Item Value Reference Range Interpretation Comments CellCnt BF Type (test Other (04/01/16 2:20 code = CellCnt BF Type) PM) [facility]2017-02-20 20:20:00 Test Item Value Reference Range Interpretation Comments Clarity BF (test code = Slight Cloudy (04/01/16 Clarity BF) 2:20 PM) [facility]2017-02-20 20:20:00 Test Item Value Reference Range Interpretation Comments RBC BF (test code = RBC BF) 5375 [facility]2017-02-20 20:20:00 Test Item Value Reference Range Interpretation Comments WBC BF (test code = WBC BF) 980 [facility]2017-02-20 20:20:00 Test Item Value Reference Range Interpretation Comments Lymph BF (test code = Lymph BF) 44 [facility]2017-02-20 20:20:00 Test Item Value Reference Range Interpretation Comments Segs BF (test code = Segs BF) 56 [facility]2017-02-20 20:20:00 Test Item Value Reference Range Interpretation Comments Eos BF (test code = Eos BF) 0 [facility]2017-02-20 20:20:00 Test Item Value Reference Range Interpretation Comments Macrophage BF (test code = Macrophage 0 BF) [facility]2017-02-20 20:20:00 Test Item Value Reference Range Interpretation Comments Color BF (test code = Yellow (04/01/16 2:20 Color BF) PM) [facility]2017-02-20 20:20:00 Test Item Value Reference Range Interpretation Comments CellCnt BF Type (test Other (04/01/16 2:20 code = CellCnt BF Type) PM) [facility]2017-02-20 20:20:00 Test Item Value Reference Range Interpretation Comments Clarity BF (test code = Slight Cloudy (04/01/16 Clarity BF) 2:20 PM) [facility]2017-02-20 20:20:00 Test Item Value Reference Range Interpretation Comments RBC BF (test code = RBC BF) 5375 [facility]2017-02-20 20:20:00 Test Item Value Reference Range Interpretation Comments WBC BF (test code = WBC BF) 980 [facility]2017-02-20 20:20:00 Test Item Value Reference Range Interpretation Comments Lymph BF (test code = Lymph BF) 44 [facility]2017-02-20 20:20:00 Test Item Value Reference Range Interpretation Comments Segs BF (test code = Segs BF) 56 [facility]2017-02-20 20:20:00 Test Item Value Reference Range Interpretation Comments Eos BF (test code = Eos BF) 0 [facility]2017-02-20 20:20:00 Test Item Value Reference Range Interpretation Comments Macrophage BF (test code = Macrophage 0 BF) [facility]2017-02-20 20:20:00 Test Item Value Reference Range Interpretation Comments Color BF (test code = Yellow (04/01/16 2:20 Color BF) PM) [facility]2017-02-20 20:20:00 Test Item Value Reference Range Interpretation Comments CellCnt BF Type (test Other (04/01/16 2:20 code = CellCnt BF Type) PM) [facility]2017-02-20 20:20:00 Test Item Value Reference Range Interpretation Comments Clarity BF (test code = Slight Cloudy (04/01/16 Clarity BF) 2:20 PM) [facility]2017-02-20 20:20:00 Test Item Value Reference Range Interpretation Comments RBC BF (test code = RBC BF) 5375 [facility]2017-02-20 20:20:00 Test Item Value Reference Range Interpretation Comments WBC BF (test code = WBC BF) 980 [facility]2017-02-20 20:20:00 Test Item Value Reference Range Interpretation Comments Lymph BF (test code = Lymph BF) 44 [facility]2017-02-20 20:20:00 Test Item Value Reference Range Interpretation Comments Segs BF (test code = Segs BF) 56 [facility]2017-02-20 20:20:00 Test Item Value Reference Range Interpretation Comments Eos BF (test code = Eos BF) 0 [facility]2017-02-20 20:20:00 Test Item Value Reference Range Interpretation Comments Macrophage BF (test code = Macrophage 0 BF) [facility]2017-02-20 20:20:00 Test Item Value Reference Range Interpretation Comments Color BF (test code = Yellow (04/01/16 2:20 Color BF) PM) [facility]2017-02-20 20:20:00 Test Item Value Reference Range Interpretation Comments CellCnt BF Type (test Other (04/01/16 2:20 code = CellCnt BF Type) PM) [facility]2017-02-20 20:20:00 Test Item Value Reference Range Interpretation Comments Clarity BF (test code = Slight Cloudy (04/01/16 Clarity BF) 2:20 PM) [facility]2017-02-20 20:20:00 Test Item Value Reference Range Interpretation Comments RBC BF (test code = RBC BF) 5375 [facility]2017-02-20 20:20:00 Test Item Value Reference Range Interpretation Comments WBC BF (test code = WBC BF) 980 [facility]2017-02-20 20:20:00 Test Item Value Reference Range Interpretation Comments Lymph BF (test code = Lymph BF) 44 [facility]2017-02-20 20:20:00 Test Item Value Reference Range Interpretation Comments Segs BF (test code = Segs BF) 56 [facility]2017-02-20 20:20:00 Test Item Value Reference Range Interpretation Comments Eos BF (test code = Eos BF) 0 [facility]2017-02-20 20:20:00 Test Item Value Reference Range Interpretation Comments Macrophage BF (test code = Macrophage 0 BF) [facility]2017-02-20 20:20:00 Test Item Value Reference Range Interpretation Comments Color BF (test code = Yellow (04/01/16 2:20 Color BF) PM) [facility]2017-02-20 20:20:00 Test Item Value Reference Range Interpretation Comments CellCnt BF Type (test Other (04/01/16 2:20 code = CellCnt BF Type) PM) [facility]2017-02-20 20:20:00 Test Item Value Reference Range Interpretation Comments Clarity BF (test code = Slight Cloudy (04/01/16 Clarity BF) 2:20 PM) [facility]2017-02-20 20:20:00 Test Item Value Reference Range Interpretation Comments RBC BF (test code = RBC BF) 5375 [facility]2017-02-20 20:20:00 Test Item Value Reference Range Interpretation Comments WBC BF (test code = WBC BF) 980 [facility]2017-02-20 20:20:00 Test Item Value Reference Range Interpretation Comments Lymph BF (test code = Lymph BF) 44 [facility]2017-02-20 20:20:00 Test Item Value Reference Range Interpretation Comments Segs BF (test code = Segs BF) 56 [facility]2017-02-20 20:20:00 Test Item Value Reference Range Interpretation Comments Eos BF (test code = Eos BF) 0 [facility]2017-02-20 20:20:00 Test Item Value Reference Range Interpretation Comments Macrophage BF (test code = Macrophage 0 BF) [facility]2017-02-20 20:20:00 Test Item Value Reference Range Interpretation Comments Color BF (test code = Yellow (04/01/16 2:20 Color BF) PM) [facility]2017-02-20 20:20:00 Test Item Value Reference Range Interpretation Comments CellCnt BF Type (test Other (04/01/16:20 code = CellCnt BF Type) PM) [facility]2017-02-20 20:20:00 Test Item Value Reference Range Interpretation Comments Clarity BF (test code = Slight Cloudy (04/01/16 Clarity BF) 2:20 PM) [facility]2017-02-20 20:20:00 Test Item Value Reference Range Interpretation Comments RBC BF (test code = RBC BF) 5375 [facility]2017-02-20 20:20:00 Test Item Value Reference Range Interpretation Comments WBC BF (test code = WBC BF) 980 [facility]2017-02-20 20:20:00 Test Item Value Reference Range Interpretation Comments Lymph BF (test code = Lymph BF) 44 [facility]2017-02-20 20:20:00 Test Item Value Reference Range Interpretation Comments Segs BF (test code = Segs BF) 56 [facility]2017-02-20 20:20:00 Test Item Value Reference Range Interpretation Comments Eos BF (test code = Eos BF) 0 [facility]2017-02-20 20:20:00 Test Item Value Reference Range Interpretation Comments Macrophage BF (test code = Macrophage 0 BF) [facility]2017-02-20 20:20:00 Test Item Value Reference Range Interpretation Comments Color BF (test code = Yellow (04/01/16 2:20 Color BF) PM) [facility]2017-02-20 20:20:00 Test Item Value Reference Range Interpretation Comments CellCnt BF Type (test Other (04/01/16 2:20 code = CellCnt BF Type) PM) [facility]2017-02-20 20:20:00 Test Item Value Reference Range Interpretation Comments Clarity BF (test code = Slight Cloudy (04/01/16 Clarity BF) 2:20 PM) [facility]2017-02-20 20:20:00 Test Item Value Reference Range Interpretation Comments RBC BF (test code = RBC BF) 5375 [facility]2017-02-20 20:20:00 Test Item Value Reference Range Interpretation Comments WBC BF (test code = WBC BF) 980 [facility]2017-02-20 20:20:00 Test Item Value Reference Range Interpretation Comments Lymph BF (test code = Lymph BF) 44 [facility]2017-02-20 20:20:00 Test Item Value Reference Range Interpretation Comments Segs BF (test code = Segs BF) 56 [facility]2017-02-20 20:20:00 Test Item Value Reference Range Interpretation Comments Eos BF (test code = Eos BF) 0 [facility]2017-02-20 20:20:00 Test Item Value Reference Range Interpretation Comments Macrophage BF (test code = Macrophage 0 BF) [facility]2017-02-20 20:20:00 Test Item Value Reference Range Interpretation Comments Color BF (test code = Yellow (04/01/16 2:20 Color BF) PM) [facility]2017-02-20 20:20:00 Test Item Value Reference Range Interpretation Comments CellCnt BF Type (test Other (04/01/16 2:20 code = CellCnt BF Type) PM) [facility]2017-02-20 20:20:00 Test Item Value Reference Range Interpretation Comments Clarity BF (test code = Slight Cloudy (04/01/16 Clarity BF) 2:20 PM) [facility]2017-02-20 20:20:00 Test Item Value Reference Range Interpretation Comments RBC BF (test code = RBC BF) 5375 [facility]NitcludSCVGKIJBLB4563-08-36 19:10:00 Test Item Value Reference Range Interpretation Comments WBC (test code = WBC) 6.1 3.7-10.4 [facility]stWpmxwnwRSVQUNEMZD6762-71-20 19:10:00 Test Item Value Reference Range Interpretation Comments MPV (test code = MPV) 7.9 7.4-10.4 [facility]stArgocbuTPQMWJLJJO3010-34-07 19:10:00 Test Item Value Reference Range Interpretation Comments Platelet (test code = Platelet) 226 133-450 [facility]stMfpepfsOWTPBZIFTS6955-91-22 19:10:00 Test Item Value Reference Range Interpretation Comments MCH (test code = MCH) 28.5 pg 27.0-31.0 [facility]stZfrmyoqVFZBLKAEKH0856-94-14 19:10:00 Test Item Value Reference Range Interpretation Comments RDW (test code = RDW) 14.8 11.5-14.5 [facility]stJvdrzriOMXFZGPYEH1700-80-77 19:10:00 Test Item Value Reference Range Interpretation Comments MCHC (test code = MCHC) 33.2 32.0-36.0 [facility]stGaxszdgBZJFPYFXFI1169-37-04 19:10:00 Test Item Value Reference Range Interpretation Comments Hct (test code = Hct) 30.8 36.0-48.0 [facility]stGrxbbqqJKNGSMGJAK5109-87-91 19:10:00 Test Item Value Reference Range Interpretation Comments RBC (test code = RBC) 3.59 4.20-5.40 [facility]stXymcyarUWFOGVEVMD3481-35-42 19:10:00 Test Item Value Reference Range Interpretation Comments Hgb (test code = Hgb) 10.2 12.0-16.0 [facility]stTurimgzWQYXKMBDXH2405-98-48 19:10:00 Test Item Value Reference Range Interpretation Comments MCV (test code = MCV) 85.9 80.0-98.0 [facility]stKpiucfmHTLNRAINPZ3364-36-49 19:10:00 Test Item Value Reference Range Interpretation Comments Eosinophils # (test code 0.1 See_Comment [A utomated message] The = Eosinophils #) system whic h generated this result tra nsmitted reference range : <=0.5. The reference r lv was not used to int erpret this result as normal/abnormal . [facility]stMdvpcghCNMBXQBERE1968-41-25 19:10:00 Test Item Value Reference Range Interpretation Comments Monocytes # (test code 0.4 See_Comment [Aut omated message] The = Monocytes #) system which generated this result tra nsmitted reference range : <=0.8. The reference r lv was not used to int erpret this result as normal/abnormal . [facility]stRxivtbuFWXINHNFAE6997-40-97 19:10:00 Test Item Value Reference Range Interpretation Comments Segs-Bands # (test code = Segs-Bands #) 4.0 1.5-8.1 [facility]stUexnvtbDWBBQKPHYI8856-19-53 19:10:00 Test Item Value Reference Range Interpretation Comments Lymphocytes # (test code = Lymphocytes 1.5 1.0-5.5 #) [facility]stWlfqdfzVANRNCAHTC5368-58-75 19:10:00 Test Item Value Reference Range Interpretation Comments Basophils # (test code 0.0 See_Comment [Aut omated message] The = Basophils #) system which generated this result tra nsmitted reference range : <=0.2. The reference r lv was not used to int erpret this result as normal/abnormal . [facility]stHvlspbtEWZSWSHZFD9403-08-20 19:10:00 Test Item Value Reference Range Interpretation Comments Lymphocytes (test code = Lymphocytes) 25.0 20.0-40.0 [facility]stBvyfdqcRRHNWSUFVT8357-96-54 19:10:00 Test Item Value Reference Range Interpretation Comments Monocytes (test code = Monocytes) 6.9 2.0-12.0 [facility]stLkrglaeDMKNABAQGN8528-14-00 19:10:00 Test Item Value Reference Range Interpretation Comments Segs (test code = Segs) 65.5 45.0-75.0 [facility]stGnbasrcCKOCRTCIAO6588-70-23 19:10:00 Test Item Value Reference Range Interpretation Comments Basophils (test code = 0.6 See_Comment [Aut omated message] The Basophils) system which ge nerated this result tra nsmitted reference range : <=1.0. The reference r lv was not used to int erpret this result as normal/abnormal . [facility]stLtizbzaVHAKTGEHUF6505-06-53 19:10:00 Test Item Value Reference Range Interpretation Comments Eosinophils (test code = 2.0 See_Comment [A utomated message] The Eosinophils) system which ge nerated this result tra nsmitted reference range : <=4.0. The reference r lv was not used to int erpret this result as normal/abnormal . [facility]stHwphkryDAPHJCDLPN4987-25-68 19:10:00 Test Item Value Reference Range Interpretation Comments WBC (test code = WBC) 6.1 3.7-10.4 [facility]stMnwqbwpITFUARIEFN4332-27-30 19:10:00 Test Item Value Reference Range Interpretation Comments MPV (test code = MPV) 7.9 7.4-10.4 [facility]stTrrbbanRJWYINGYLU7092-41-82 19:10:00 Test Item Value Reference Range Interpretation Comments Platelet (test code = Platelet) 226 133-450 [facility]stXzhtnvxFTLPEEDPLE1993-43-31 19:10:00 Test Item Value Reference Range Interpretation Comments MCH (test code = MCH) 28.5 pg 27.0-31.0 [facility]stOaunqczBJROLQMXDI0659-68-10 19:10:00 Test Item Value Reference Range Interpretation Comments RDW (test code = RDW) 14.8 11.5-14.5 [facility]stUsubxvpFCUVMJMWZH5247-29-12 19:10:00 Test Item Value Reference Range Interpretation Comments MCHC (test code = MCHC) 33.2 32.0-36.0 [facility]stCeatdlqJORQQAQCOA6224-58-00 19:10:00 Test Item Value Reference Range Interpretation Comments Hct (test code = Hct) 30.8 36.0-48.0 [facility]stJussfgyNUQKUPPUHB3343-50-09 19:10:00 Test Item Value Reference Range Interpretation Comments RBC (test code = RBC) 3.59 4.20-5.40 [facility]stSgquaudQTZYXROPQA3130-54-82 19:10:00 Test Item Value Reference Range Interpretation Comments Hgb (test code = Hgb) 10.2 12.0-16.0 [facility]stOflexatJPYJMCNNMT2313-74-52 19:10:00 Test Item Value Reference Range Interpretation Comments MCV (test code = MCV) 85.9 80.0-98.0 [facility]stOrpoqixWTMCPHKNLE9981-70-10 19:10:00 Test Item Value Reference Range Interpretation Comments Eosinophils # (test code 0.1 See_Comment [A utomated message] The = Eosinophils #) system whic h generated this result tra nsmitted reference range : <=0.5. The reference r lv was not used to int erpret this result as normal/abnormal . [facility]stAggjhmuKGUNTYEPTJ5399-17-23 19:10:00 Test Item Value Reference Range Interpretation Comments Monocytes # (test code 0.4 See_Comment [Aut omated message] The = Monocytes #) system which generated this result tra nsmitted reference range : <=0.8. The reference r lv was not used to int erpret this result as normal/abnormal . [facility]stJjxzuifSUFUKKKTWW3351-39-72 19:10:00 Test Item Value Reference Range Interpretation Comments Segs-Bands # (test code = Segs-Bands #) 4.0 1.5-8.1 [facility]stQatywuvJPYLMXFUZD3405-56-34 19:10:00 Test Item Value Reference Range Interpretation Comments Lymphocytes # (test code = Lymphocytes 1.5 1.0-5.5 #) [facility]stFaguhhyRYMCSOVPQN5458-15-84 19:10:00 Test Item Value Reference Range Interpretation Comments Basophils # (test code 0.0 See_Comment [Aut omated message] The = Basophils #) system which generated this result tra nsmitted reference range : <=0.2. The reference r lv was not used to int erpret this result as normal/abnormal . [facility]stCmiumewFPAGASCITP6343-52-36 19:10:00 Test Item Value Reference Range Interpretation Comments Lymphocytes (test code = Lymphocytes) 25.0 20.0-40.0 [facility]stIhgzmtaBVCWLVXWSD8799-23-88 19:10:00 Test Item Value Reference Range Interpretation Comments Monocytes (test code = Monocytes) 6.9 2.0-12.0 [facility]stNxkejnmMCOKHJRZKF8850-75-21 19:10:00 Test Item Value Reference Range Interpretation Comments Segs (test code = Segs) 65.5 45.0-75.0 [facility]stCbqyydpSVIFYTKYAW9597-83-36 19:10:00 Test Item Value Reference Range Interpretation Comments Basophils (test code = 0.6 See_Comment [Aut omated message] The Basophils) system which ge nerated this result tra nsmitted reference range : <=1.0. The reference r lv was not used to int erpret this result as normal/abnormal . [facility]stAastfchYTTKROSFOI7556-75-23 19:10:00 Test Item Value Reference Range Interpretation Comments Eosinophils (test code = 2.0 See_Comment [A utomated message] The Eosinophils) system which ge nerated this result tra nsmitted reference range : <=4.0. The reference r lv was not used to int erpret this result as normal/abnormal . [facility]stWaeeqyjZDVUUYSRME0958-62-81 19:10:00 Test Item Value Reference Range Interpretation Comments WBC (test code = WBC) 6.1 3.7-10.4 [facility]stFgpfcmyMAXWQWQZCZ0264-75-46 19:10:00 Test Item Value Reference Range Interpretation Comments MPV (test code = MPV) 7.9 7.4-10.4 [facility]stQjdmmagDIQKZOIWLY8444-65-13 19:10:00 Test Item Value Reference Range Interpretation Comments Platelet (test code = Platelet) 226 133-450 [facility]stMowdjobBGFIURXUIK2227-86-79 19:10:00 Test Item Value Reference Range Interpretation Comments MCH (test code = MCH) 28.5 pg 27.0-31.0 [facility]stBnehndqFWJSOUFAKF4170-28-82 19:10:00 Test Item Value Reference Range Interpretation Comments RDW (test code = RDW) 14.8 11.5-14.5 [facility]stXqbcnzuPNUMVPAXKB0958-48-24 19:10:00 Test Item Value Reference Range Interpretation Comments MCHC (test code = MCHC) 33.2 32.0-36.0 [facility]stTankfveXGYYYDCDVT8317-22-94 19:10:00 Test Item Value Reference Range Interpretation Comments Hct (test code = Hct) 30.8 36.0-48.0 [facility]stFxjaeghVIMYXUNFAE8632-75-09 19:10:00 Test Item Value Reference Range Interpretation Comments RBC (test code = RBC) 3.59 4.20-5.40 [facility]stZmhifktBZAMDBVZPV8197-63-34 19:10:00 Test Item Value Reference Range Interpretation Comments Hgb (test code = Hgb) 10.2 12.0-16.0 [facility]stFatcdncDKUTLYOSYS1698-18-17 19:10:00 Test Item Value Reference Range Interpretation Comments MCV (test code = MCV) 85.9 80.0-98.0 [facility]stChgdpnlPZWRBKDXTB5973-50-28 19:10:00 Test Item Value Reference Range Interpretation Comments Eosinophils # (test code 0.1 See_Comment [A utomated message] The = Eosinophils #) system whic h generated this result tra nsmitted reference range : <=0.5. The reference r lv was not used to int erpret this result as normal/abnormal . [facility]stKalvxzlTNPPGILBFF2035-69-11 19:10:00 Test Item Value Reference Range Interpretation Comments Monocytes # (test code 0.4 See_Comment [Aut omated message] The = Monocytes #) system which generated this result tra nsmitted reference range : <=0.8. The reference r lv was not used to int erpret this result as normal/abnormal . [facility]stJesjgjxWRERUWMOII3515-27-90 19:10:00 Test Item Value Reference Range Interpretation Comments Segs-Bands # (test code = Segs-Bands #) 4.0 1.5-8.1 [facility]stFthlgwnDMCDAWNDTE1473-99-96 19:10:00 Test Item Value Reference Range Interpretation Comments Lymphocytes # (test code = Lymphocytes 1.5 1.0-5.5 #) [facility]stXtrghwzZJAOZQNRBX1021-82-55 19:10:00 Test Item Value Reference Range Interpretation Comments Basophils # (test code 0.0 See_Comment [Aut omated message] The = Basophils #) system which generated this result tra nsmitted reference range : <=0.2. The reference r lv was not used to int erpret this result as normal/abnormal . [facility]stRqadtvkLWRNJLUNLB6679-19-74 19:10:00 Test Item Value Reference Range Interpretation Comments Lymphocytes (test code = Lymphocytes) 25.0 20.0-40.0 [facility]stDpgxnupCMWQQTRKSX4953-79-12 19:10:00 Test Item Value Reference Range Interpretation Comments Monocytes (test code = Monocytes) 6.9 2.0-12.0 [facility]stFprnuznPWMULYALRS5022-58-84 19:10:00 Test Item Value Reference Range Interpretation Comments Segs (test code = Segs) 65.5 45.0-75.0 [facility]stUfhtpexVYLAXTFULP4504-27-50 19:10:00 Test Item Value Reference Range Interpretation Comments Basophils (test code = 0.6 See_Comment [Aut omated message] The Basophils) system which ge nerated this result tra nsmitted reference range : <=1.0. The reference r lv was not used to int erpret this result as normal/abnormal . [facility]stMsoaawiNLFZMYFHNY2657-83-75 19:10:00 Test Item Value Reference Range Interpretation Comments Eosinophils (test code = 2.0 See_Comment [A utomated message] The Eosinophils) system which ge nerated this result tra nsmitted reference range : <=4.0. The reference r lv was not used to int erpret this result as normal/abnormal . [facility]stRwtokjcYUFIJEEOOK5819-05-68 19:10:00 Test Item Value Reference Range Interpretation Comments WBC (test code = WBC) 6.1 3.7-10.4 [facility]stFgjwvktGQYXALXTWF6952-04-19 19:10:00 Test Item Value Reference Range Interpretation Comments MPV (test code = MPV) 7.9 7.4-10.4 [facility]stWprmbkjQVLJOLTGPI7522-46-48 19:10:00 Test Item Value Reference Range Interpretation Comments Platelet (test code = Platelet) 226 133-450 [facility]stSmwxclbJOTPHFFXLN5181-57-39 19:10:00 Test Item Value Reference Range Interpretation Comments MCH (test code = MCH) 28.5 pg 27.0-31.0 [facility]stBsknvzzBLIIGZAJMX3532-14-12 19:10:00 Test Item Value Reference Range Interpretation Comments RDW (test code = RDW) 14.8 11.5-14.5 [facility]stLvfboirMKIFLNBDPX2496-90-82 19:10:00 Test Item Value Reference Range Interpretation Comments MCHC (test code = MCHC) 33.2 32.0-36.0 [facility]stDvqqwhoOFLODTDBUX1290-15-16 19:10:00 Test Item Value Reference Range Interpretation Comments Hct (test code = Hct) 30.8 36.0-48.0 [facility]stKqcaszwSZECRXLGZR8106-19-82 19:10:00 Test Item Value Reference Range Interpretation Comments RBC (test code = RBC) 3.59 4.20-5.40 [facility]stHtwmvwaVYWIBXYRDG4594-18-76 19:10:00 Test Item Value Reference Range Interpretation Comments Hgb (test code = Hgb) 10.2 12.0-16.0 [facility]stXjkxeybBSQLDOPKMP4328-33-55 19:10:00 Test Item Value Reference Range Interpretation Comments MCV (test code = MCV) 85.9 80.0-98.0 [facility]stPybebwpZFWSPISQTP7825-81-62 19:10:00 Test Item Value Reference Range Interpretation Comments Eosinophils # (test code 0.1 See_Comment [A utomated message] The = Eosinophils #) system whic h generated this result tra nsmitted reference range : <=0.5. The reference r lv was not used to int erpret this result as normal/abnormal . [facility]stGdrmyaoHONYZMHVCJ7520-15-99 19:10:00 Test Item Value Reference Range Interpretation Comments Monocytes # (test code 0.4 See_Comment [Aut omated message] The = Monocytes #) system which generated this result tra nsmitted reference range : <=0.8. The reference r lv was not used to int erpret this result as normal/abnormal . [facility]stKvczpkrMGJVMBQTSW2153-19-00 19:10:00 Test Item Value Reference Range Interpretation Comments Segs-Bands # (test code = Segs-Bands #) 4.0 1.5-8.1 [facility]stLvclrhhDJTUOTOOKD2208-90-14 19:10:00 Test Item Value Reference Range Interpretation Comments Lymphocytes # (test code = Lymphocytes 1.5 1.0-5.5 #) [facility]stRaxfclrLPQMJKCNEW8911-33-41 19:10:00 Test Item Value Reference Range Interpretation Comments Basophils # (test code 0.0 See_Comment [Aut omated message] The = Basophils #) system which generated this result tra nsmitted reference range : <=0.2. The reference r lv was not used to int erpret this result as normal/abnormal . [facility]stGqcxuqwAOJJTCIZBN8012-83-10 19:10:00 Test Item Value Reference Range Interpretation Comments Lymphocytes (test code = Lymphocytes) 25.0 20.0-40.0 [facility]stVzddasiZHADNZTPQH8056-32-36 19:10:00 Test Item Value Reference Range Interpretation Comments Monocytes (test code = Monocytes) 6.9 2.0-12.0 [facility]stZqgfharLYUNKESZZL9526-08-04 19:10:00 Test Item Value Reference Range Interpretation Comments Segs (test code = Segs) 65.5 45.0-75.0 [facility] [facility]MltetaySHUJPSDOED7181-27-02 19:10:00 Test Item Value Reference Range Interpretation Comments Basophils (test code = 0.6 See_Comment [Aut omated message] The Basophils) system which ge nerated this result tra nsmitted reference range : <=1.0. The reference r lv was not used to int erpret this result as normal/abnormal . [facility]stVhewsmdZBCXXOIFTN0662-63-37 19:10:00 Test Item Value Reference Range Interpretation Comments Eosinophils (test code = 2.0 See_Comment [A utomated message] The Eosinophils) system which ge nerated this result tra nsmitted reference range : <=4.0. The reference r lv was not used to int erpret this result as normal/abnormal . [facility]stPaigvkbKYVQWSOFIX3929-98-80 19:10:00 Test Item Value Reference Range Interpretation Comments WBC (test code = WBC) 6.1 3.7-10.4 [facility]stBzyugslWRJWXMURIJ1821-41-76 19:10:00 Test Item Value Reference Range Interpretation Comments MPV (test code = MPV) 7.9 7.4-10.4 [facility]stLvwdtwdKRJPBAEEIB1727-87-91 19:10:00 Test Item Value Reference Range Interpretation Comments Platelet (test code = Platelet) 226 133-450 [facility]stQmhziayIOZFGKOUAV5159-95-21 19:10:00 Test Item Value Reference Range Interpretation Comments MCH (test code = MCH) 28.5 pg 27.0-31.0 [facility]stUdnbuvbVVDHGCDVVU5565-84-45 19:10:00 Test Item Value Reference Range Interpretation Comments RDW (test code = RDW) 14.8 11.5-14.5 [facility]stOllcafiHXYUROAHHZ0400-26-08 19:10:00 Test Item Value Reference Range Interpretation Comments MCHC (test code = MCHC) 33.2 32.0-36.0 [facility]stPdrnejvKBGIHUZBCK8275-09-62 19:10:00 Test Item Value Reference Range Interpretation Comments Hct (test code = Hct) 30.8 36.0-48.0 [facility]stQqavbpwBBPGIIRZYY2860-96-51 19:10:00 Test Item Value Reference Range Interpretation Comments RBC (test code = RBC) 3.59 4.20-5.40 [facility]stPtdxhlfKKQEKQAZVM8894-60-20 19:10:00 Test Item Value Reference Range Interpretation Comments Hgb (test code = Hgb) 10.2 12.0-16.0 [facility]stAdbpbuyNFTNEHUVYA1585-94-58 19:10:00 Test Item Value Reference Range Interpretation Comments MCV (test code = MCV) 85.9 80.0-98.0 [facility]stWtgzaywIRDLKEWSNM8662-52-23 19:10:00 Test Item Value Reference Range Interpretation Comments Eosinophils # (test code 0.1 See_Comment [A utomated message] The = Eosinophils #) system whic h generated this result tra nsmitted reference range : <=0.5. The reference r lv was not used to int erpret this result as normal/abnormal . [facility]stWsjxavoXCTOVIHFGP4665-95-11 19:10:00 Test Item Value Reference Range Interpretation Comments Monocytes # (test code 0.4 See_Comment [Aut omated message] The = Monocytes #) system which generated this result tra nsmitted reference range : <=0.8. The reference r lv was not used to int erpret this result as normal/abnormal . [facility]stKwpjtsiILGMOTXJPK1579-02-29 19:10:00 Test Item Value Reference Range Interpretation Comments Segs-Bands # (test code = Segs-Bands #) 4.0 1.5-8.1 [facility]stMpsttjkSHCJWOIUWK9433-42-90 19:10:00 Test Item Value Reference Range Interpretation Comments Lymphocytes # (test code = Lymphocytes 1.5 1.0-5.5 #) [facility]stTjmfmilHWTJORJBPV1707-91-57 19:10:00 Test Item Value Reference Range Interpretation Comments Basophils # (test code 0.0 See_Comment [Aut omated message] The = Basophils #) system which generated this result tra nsmitted reference range : <=0.2. The reference r lv was not used to int erpret this result as normal/abnormal . [facility]stSqgavnfHQVGBUUZFS9957-90-61 19:10:00 Test Item Value Reference Range Interpretation Comments Lymphocytes (test code = Lymphocytes) 25.0 20.0-40.0 [facility]stTrdvwylWCNNRHVLWV5708-87-76 19:10:00 Test Item Value Reference Range Interpretation Comments Monocytes (test code = Monocytes) 6.9 2.0-12.0 [facility]stVbvdtpjMYIUXKTQZA5473-09-90 19:10:00 Test Item Value Reference Range Interpretation Comments Segs (test code = Segs) 65.5 45.0-75.0 [facility]stVsgebrcXOFCIZCJIY8879-34-37 19:10:00 Test Item Value Reference Range Interpretation Comments Basophils (test code = 0.6 See_Comment [Aut omated message] The Basophils) system which ge nerated this result tra nsmitted reference range : <=1.0. The reference r lv was not used to int erpret this result as normal/abnormal . [facility]stPktvgeqHFQYPZWZBD2859-93-66 19:10:00 Test Item Value Reference Range Interpretation Comments Eosinophils (test code = 2.0 See_Comment [A utomated message] The Eosinophils) system which ge nerated this result tra nsmitted reference range : <=4.0. The reference r lv was not used to int erpret this result as normal/abnormal . [facility]stCcbubsoASAQHJNWZH0454-87-59 19:10:00 Test Item Value Reference Range Interpretation Comments WBC (test code = WBC) 6.1 3.7-10.4 [facility]stOjzrvfaZHTUQIGMSR5325-94-49 19:10:00 Test Item Value Reference Range Interpretation Comments MPV (test code = MPV) 7.9 7.4-10.4 [facility]stAjgkpodGQFIEWTBBI4865-14-58 19:10:00 Test Item Value Reference Range Interpretation Comments Platelet (test code = Platelet) 226 133-450 [facility]stAowvzmdNQDIJUCDHP8008-05-79 19:10:00 Test Item Value Reference Range Interpretation Comments MCH (test code = MCH) 28.5 pg 27.0-31.0 [facility]stDjkbrppANJQFDADRX9424-44-07 19:10:00 Test Item Value Reference Range Interpretation Comments RDW (test code = RDW) 14.8 11.5-14.5 [facility]stJavzrrsUJDHLGOCSG5954-07-97 19:10:00 Test Item Value Reference Range Interpretation Comments MCHC (test code = MCHC) 33.2 32.0-36.0 [facility]stRzkcijkTWVVHOCYDJ0950-65-97 19:10:00 Test Item Value Reference Range Interpretation Comments Hct (test code = Hct) 30.8 36.0-48.0 [facility]stPgvquiaYBBRGYJNAF2665-26-77 19:10:00 Test Item Value Reference Range Interpretation Comments RBC (test code = RBC) 3.59 4.20-5.40 [facility]stIcmdoenVSTPXINYLK3756-15-58 19:10:00 Test Item Value Reference Range Interpretation Comments Hgb (test code = Hgb) 10.2 12.0-16.0 [facility]stLmjshfqREKXFYZCFI0696-03-85 19:10:00 Test Item Value Reference Range Interpretation Comments MCV (test code = MCV) 85.9 80.0-98.0 [facility]stUmbebviCNSKYCEQEG9881-20-70 19:10:00 Test Item Value Reference Range Interpretation Comments Eosinophils # (test code 0.1 See_Comment [A utomated message] The = Eosinophils #) system whic h generated this result tra nsmitted reference range : <=0.5. The reference r lv was not used to int erpret this result as normal/abnormal . [facility]stSfdyrudKKIFYCEKSB0623-82-59 19:10:00 Test Item Value Reference Range Interpretation Comments Monocytes # (test code 0.4 See_Comment [Aut omated message] The = Monocytes #) system which generated this result tra nsmitted reference range : <=0.8. The reference r lv was not used to int erpret this result as normal/abnormal . [facility]stZcqsnacMBZTPGVBVR4608-30-11 19:10:00 Test Item Value Reference Range Interpretation Comments Segs-Bands # (test code = Segs-Bands #) 4.0 1.5-8.1 [facility]stXrjfwbkHGTWEZTDOR0778-49-04 19:10:00 Test Item Value Reference Range Interpretation Comments Lymphocytes # (test code = Lymphocytes 1.5 1.0-5.5 #) [facility]stRgbqjlbXDMMQGRBQW5191-94-39 19:10:00 Test Item Value Reference Range Interpretation Comments Basophils # (test code 0.0 See_Comment [Aut omated message] The = Basophils #) system which generated this result tra nsmitted reference range : <=0.2. The reference r lv was not used to int erpret this result as normal/abnormal . [facility]stFrwqhalNRDXOQWQSB4129-24-17 19:10:00 Test Item Value Reference Range Interpretation Comments Lymphocytes (test code = Lymphocytes) 25.0 20.0-40.0 [facility]stFoewjgeMQHHOUHZQT8916-60-04 19:10:00 Test Item Value Reference Range Interpretation Comments Monocytes (test code = Monocytes) 6.9 2.0-12.0 [facility]stVjwesryYIYXGMIYJH4988-09-08 19:10:00 Test Item Value Reference Range Interpretation Comments Segs (test code = Segs) 65.5 45.0-75.0 [facility]stWwzoygcWUMWWJLFNQ0980-58-97 19:10:00 Test Item Value Reference Range Interpretation Comments Basophils (test code = 0.6 See_Comment [Aut omated message] The Basophils) system which ge nerated this result tra nsmitted reference range : <=1.0. The reference r lv was not used to int erpret this result as normal/abnormal . [facility]stTlbwbimTPHYJDQZQQ1839-91-82 19:10:00 Test Item Value Reference Range Interpretation Comments Eosinophils (test code = 2.0 See_Comment [A utomated message] The Eosinophils) system which ge nerated this result tra nsmitted reference range : <=4.0. The reference r lv was not used to int erpret this result as normal/abnormal . [facility]stYttjnqbNKERBERXWH0999-38-91 19:10:00 Test Item Value Reference Range Interpretation Comments WBC (test code = WBC) 6.1 3.7-10.4 [facility]stBmplhrjJUDBBKFQJD3687-00-68 19:10:00 Test Item Value Reference Range Interpretation Comments MPV (test code = MPV) 7.9 7.4-10.4 [facility]stNluyxpkSZTFLLRPCJ7192-01-91 19:10:00 Test Item Value Reference Range Interpretation Comments Platelet (test code = Platelet) 226 133-450 [facility]stUrcfhtvSYBJYAOLGV9147-64-36 19:10:00 Test Item Value Reference Range Interpretation Comments MCH (test code = MCH) 28.5 pg 27.0-31.0 [facility]stLcvljwiRNJGROPJET7493-13-57 19:10:00 Test Item Value Reference Range Interpretation Comments RDW (test code = RDW) 14.8 11.5-14.5 [facility]stJgegfqiPGGEOQJFGH4186-40-78 19:10:00 Test Item Value Reference Range Interpretation Comments MCHC (test code = MCHC) 33.2 32.0-36.0 [facility]stLjjchtoANKOOUQVFH2780-57-21 19:10:00 Test Item Value Reference Range Interpretation Comments Hct (test code = Hct) 30.8 36.0-48.0 [facility]stIqvqiniADZVJPANCH3023-14-99 19:10:00 Test Item Value Reference Range Interpretation Comments RBC (test code = RBC) 3.59 4.20-5.40 [facility]stNegnghvFXDVLGHQUI7071-31-23 19:10:00 Test Item Value Reference Range Interpretation Comments Hgb (test code = Hgb) 10.2 12.0-16.0 [facility]stSqqeycbPQEUJTJZRY5118-74-68 19:10:00 Test Item Value Reference Range Interpretation Comments MCV (test code = MCV) 85.9 80.0-98.0 [facility]stZmtslkoIZQVSDTCVH9167-91-09 19:10:00 Test Item Value Reference Range Interpretation Comments Eosinophils # (test code 0.1 See_Comment [A utomated message] The = Eosinophils #) system whic h generated this result tra nsmitted reference range : <=0.5. The reference r lv was not used to int erpret this result as normal/abnormal . [facility]stUelmancJOBALGKFIQ6197-24-04 19:10:00 Test Item Value Reference Range Interpretation Comments Monocytes # (test code 0.4 See_Comment [Aut omated message] The = Monocytes #) system which generated this result tra nsmitted reference range : <=0.8. The reference r lv was not used to int erpret this result as normal/abnormal . [facility]stDbgceyrJZBOJOSIPK3395-41-94 19:10:00 Test Item Value Reference Range Interpretation Comments Segs-Bands # (test code = Segs-Bands #) 4.0 1.5-8.1 [facility]stSowrlixRRSXGKANDB5110-99-04 19:10:00 Test Item Value Reference Range Interpretation Comments Lymphocytes # (test code = Lymphocytes 1.5 1.0-5.5 #) [facility]stLxttamqUOZBUDBWWB5535-11-46 19:10:00 Test Item Value Reference Range Interpretation Comments Basophils # (test code 0.0 See_Comment [Aut omated message] The = Basophils #) system which generated this result tra nsmitted reference range : <=0.2. The reference r lv was not used to int erpret this result as normal/abnormal . [facility]stTttzvckZTHNIOIEYU8985-40-57 19:10:00 Test Item Value Reference Range Interpretation Comments Lymphocytes (test code = Lymphocytes) 25.0 20.0-40.0 [facility]stAqksnplEVIUXCSLBV6855-23-06 19:10:00 Test Item Value Reference Range Interpretation Comments Monocytes (test code = Monocytes) 6.9 2.0-12.0 [facility]stTkyquefAASHEPPPRI1593-95-76 19:10:00 Test Item Value Reference Range Interpretation Comments Segs (test code = Segs) 65.5 45.0-75.0 [facility]stFbmvndlHFIQRWNEDY8602-75-12 19:10:00 Test Item Value Reference Range Interpretation Comments Basophils (test code = 0.6 See_Comment [Aut omated message] The Basophils) system which ge nerated this result tra nsmitted reference range : <=1.0. The reference r lv was not used to int erpret this result as normal/abnormal . [facility]stGpnwngaKPQQBNZKCI6995-84-60 19:10:00 Test Item Value Reference Range Interpretation Comments Eosinophils (test code = 2.0 See_Comment [A utomated message] The Eosinophils) system which ge nerated this result tra nsmitted reference range : <=4.0. The reference r lv was not used to int erpret this result as normal/abnormal . [facility]stOtfwlifZLLNYFVXZW7551-00-18 19:10:00 Test Item Value Reference Range Interpretation Comments WBC (test code = WBC) 6.1 3.7-10.4 [facility]stJkunlaiQXHZCBDXYK2906-68-62 19:10:00 Test Item Value Reference Range Interpretation Comments MPV (test code = MPV) 7.9 7.4-10.4 [facility]stMpwkzvbBUVMXRIHAI8342-88-39 19:10:00 Test Item Value Reference Range Interpretation Comments Platelet (test code = Platelet) 226 133-450 [facility]stOoedepeSCZXFHVQPA9664-65-82 19:10:00 Test Item Value Reference Range Interpretation Comments MCH (test code = MCH) 28.5 pg 27.0-31.0 [facility]stVfhhndmTWDYRIWMYY9168-15-53 19:10:00 Test Item Value Reference Range Interpretation Comments RDW (test code = RDW) 14.8 11.5-14.5 [facility]stPdxyrulDEIZYFUWII4701-35-78 19:10:00 Test Item Value Reference Range Interpretation Comments MCHC (test code = MCHC) 33.2 32.0-36.0 [facility]stZbxewmsPHRDLNJEFY0916-59-80 19:10:00 Test Item Value Reference Range Interpretation Comments Hct (test code = Hct) 30.8 36.0-48.0 [facility]stNgvsxtxTABESAQNCF5858-95-67 19:10:00 Test Item Value Reference Range Interpretation Comments RBC (test code = RBC) 3.59 4.20-5.40 [facility]stZldwakdZVEHCAPTIU3789-02-42 19:10:00 Test Item Value Reference Range Interpretation Comments Hgb (test code = Hgb) 10.2 12.0-16.0 [facility]stJwqwiohMCXNISGEPT2064-37-56 19:10:00 Test Item Value Reference Range Interpretation Comments MCV (test code = MCV) 85.9 80.0-98.0 [facility]stSsfbuawRDGTXHOSFQ7042-35-97 19:10:00 Test Item Value Reference Range Interpretation Comments Eosinophils # (test code 0.1 See_Comment [A utomated message] The = Eosinophils #) system whic h generated this result tra nsmitted reference range : <=0.5. The reference r lv was not used to int erpret this result as normal/abnormal . [facility]stIwhjdszOPSLWMUNIZ0672-22-34 19:10:00 Test Item Value Reference Range Interpretation Comments Monocytes # (test code 0.4 See_Comment [Aut omated message] The = Monocytes #) system which generated this result tra nsmitted reference range : <=0.8. The reference r lv was not used to int erpret this result as normal/abnormal . [facility]stNkovkyuERGPZWHNLP3359-51-91 19:10:00 Test Item Value Reference Range Interpretation Comments Segs-Bands # (test code = Segs-Bands #) 4.0 1.5-8.1 [facility]stEdaxbriXYGMFNWCTB0481-00-07 19:10:00 Test Item Value Reference Range Interpretation Comments Lymphocytes # (test code = Lymphocytes 1.5 1.0-5.5 #) [facility]stEqhruykZCNUASEPRT8574-08-06 19:10:00 Test Item Value Reference Range Interpretation Comments Basophils # (test code 0.0 See_Comment [Aut omated message] The = Basophils #) system which generated this result tra nsmitted reference range : <=0.2. The reference r lv was not used to int erpret this result as normal/abnormal . [facility]stHrgdwcyZIYKEUXEEZ3320-64-45 19:10:00 Test Item Value Reference Range Interpretation Comments Lymphocytes (test code = Lymphocytes) 25.0 20.0-40.0 [facility]stTwvdjueFVQDNPOWNE5498-06-04 19:10:00 Test Item Value Reference Range Interpretation Comments Monocytes (test code = Monocytes) 6.9 2.0-12.0 [facility]stTqqhzvvOZOUROJRKV9792-92-23 19:10:00 Test Item Value Reference Range Interpretation Comments Segs (test code = Segs) 65.5 45.0-75.0 [facility]stAezntiwMPYDDGYZMU6005-75-94 19:10:00 Test Item Value Reference Range Interpretation Comments Basophils (test code = 0.6 See_Comment [Aut omated message] The Basophils) system which ge nerated this result tra nsmitted reference range : <=1.0. The reference r lv was not used to int erpret this result as normal/abnormal . [facility]stMzzxpjaTUGRFZXMLF8917-49-92 19:10:00 Test Item Value Reference Range Interpretation Comments Eosinophils (test code = 2.0 See_Comment [A utomated message] The Eosinophils) system which ge nerated this result tra nsmitted reference range : <=4.0. The reference r lv was not used to int erpret this result as normal/abnormal . [facility]stAgluugrFVJMKMQSYC9664-79-89 19:07:00 Test Item Value Reference Range Interpretation Comments Sed Rate (test code = 84 See_Comment [Auto mated message] The Sed Rate) system which ge nerated this result transmit neli reference range : <=20. The reference range was not used to interpr et this result as felipe l/abnormal. [facility]stLipkoaaGAPBZIIKXV9922-38-11 19:07:00 Test Item Value Reference Range Interpretation Comments Sed Rate (test code = 84 See_Comment [Auto mated message] The Sed Rate) system which ge nerated this result transmit neli reference range : <=20. The reference range was not used to interpr et this result as felipe l/abnormal. [facility]stFguvfoqGABGKVWZFA0909-16-16 19:07:00 Test Item Value Reference Range Interpretation Comments Sed Rate (test code = 84 See_Comment [Auto mated message] The Sed Rate) system which ge nerated this result transmit neli reference range : <=20. The reference range was not used to interpr et this result as felipe l/abnormal. [facility]stVvekghdBGBJGIBQUE8141-16-50 19:07:00 Test Item Value Reference Range Interpretation Comments Sed Rate (test code = 84 See_Comment [Auto mated message] The Sed Rate) system which ge nerated this result transmit neli reference range : <=20. The reference range was not used to interpr et this result as felipe l/abnormal. [facility]stNfdeuflQTZIRLSEWK5137-09-89 19:07:00 Test Item Value Reference Range Interpretation Comments Sed Rate (test code = 84 See_Comment [Auto mated message] The Sed Rate) system which ge nerated this result transmit neli reference range : <=20. The reference range was not used to interpr et this result as felipe l/abnormal. [facility]stJcuguauOKHSNHWMWJ1099-15-02 19:07:00 Test Item Value Reference Range Interpretation Comments Sed Rate (test code = 84 See_Comment [Auto mated message] The Sed Rate) system which ge nerated this result transmit neli reference range : <=20. The reference range was not used to interpr et this result as felipe l/abnormal. [facility]stNmwgucxZYFYWNRXMS4948-16-43 19:07:00 Test Item Value Reference Range Interpretation Comments Sed Rate (test code = 84 See_Comment [Auto mated message] The Sed Rate) system which ge nerated this result transmit neli reference range : <=20. The reference range was not used to interpr et this result as felipe l/abnormal. [facility]stTuiixgyMLWXZBJSRF8553-43-42 19:07:00 Test Item Value Reference Range Interpretation Comments Sed Rate (test code = 84 See_Comment [Auto mated message] The Sed Rate) system which ge nerated this result transmit neli reference range : <=20. The reference range was not used to interpr et this result as felipe l/abnormal. [facility]2017-02-20 18:33:00 Test Item Value Reference Range Interpretation Comments Lactic Acid Lvl (test code = Lactic 1.3 0.5-2.2 Acid Lvl) [facility]2017-02-20 18:33:00 Test Item Value Reference Range Interpretation Comments eGFR (test code = eGFR) 91 [facility]2017-02-20 18:33:00 Test Item Value Reference Range Interpretation Comments B/C Ratio (test code = B/C Ratio) 19 6-25 [facility]2017-02-20 18:33:00 Test Item Value Reference Range Interpretation Comments A/G Ratio (test code = A/G Ratio) 0.6 0.7-1.6 [facility]2017-02-20 18:33:00 Test Item Value Reference Range Interpretation Comments Globulin (test code = Globulin) 4.7 2.7-4.2 [facility]2017-02-20 18:33:00 Test Item Value Reference Range Interpretation Comments AGAP (test code = AGAP) 12.0 10.0-20.0 [facility]2017-02-20 18:33:00 Test Item Value Reference Range Interpretation Comments Bili Total (test code = Bili Total) 0.2 0.2-1.3 [facility]2017-02-20 18:33:00 Test Item Value Reference Range Interpretation Comments Alk Phos (test code = Alk Phos) 116 39-136 [facility]2017-02-20 18:33:00 Test Item Value Reference Range Interpretation Comments CO2 (test code = CO2) 30 24-32 [facility]2017-02-20 18:33:00 Test Item Value Reference Range Interpretation Comments Chloride Lvl (test code = Chloride Lvl) 99 95-109 [facility]2017-02-20 18:33:00 Test Item Value Reference Range Interpretation Comments BUN (test code = BUN) 14 7-22 [facility]2017-02-20 18:33:00 Test Item Value Reference Range Interpretation Comments Glucose Lvl (test code = Glucose Lvl) 128 70-99 [facility]2017-02-20 18:33:00 Test Item Value Reference Range Interpretation Comments Creatinine Lvl (test code = Creatinine 0.74 0.50-1.40 Lvl) [facility]2017-02-20 18:33:00 Test Item Value Reference Range Interpretation Comments Potassium Lvl (test code = Potassium 5.0 3.5-5.1 Lvl) [facility]2017-02-20 18:33:00 Test Item Value Reference Range Interpretation Comments Sodium Lvl (test code = Sodium Lvl) 136 135-145 [facility]2017-02-20 18:33:00 Test Item Value Reference Range Interpretation Comments Total Protein (test code = Total 7.7 6.4-8.4 Protein) [facility]2017-02-20 18:33:00 Test Item Value Reference Range Interpretation Comments Calcium Lvl (test code = Calcium Lvl) 8.7 8.5-10.5 [facility]2017-02-20 18:33:00 Test Item Value Reference Range Interpretation Comments ALT (test code = ALT) 21 See_Comment [Auto mated message] The system which ge nerated this result transmit neli reference range : <=65. The reference range was not used to interpr et this result as felipe l/abnormal. [facility]2017-02-20 18:33:00 Test Item Value Reference Range Interpretation Comments Albumin Lvl (test code = Albumin Lvl) 3.0 3.5-5.0 [facility]2017-02-20 18:33:00 Test Item Value Reference Range Interpretation Comments AST (test code = AST) 27 See_Comment [Auto mated message] The system which ge nerated this result transmit neli reference range : <=37. The reference range was not used to interpr et this result as felipe l/abnormal. [id number] 18:33:00 Test Item Value Reference Range Interpretation Comments C-REACTIVE PROTEIN (test code = 44.4 C-REACTIVE PROTEIN) [facility]2017-02-20 18:33:00 Test Item Value Reference Range Interpretation Comments Lactic Acid Lvl (test code = Lactic 1.3 0.5-2.2 Acid Lvl) [facility]2017-02-20 18:33:00 Test Item Value Reference Range Interpretation Comments eGFR (test code = eGFR) 91 [facility]2017-02-20 18:33:00 Test Item Value Reference Range Interpretation Comments B/C Ratio (test code = B/C Ratio) 19 6-25 [facility]2017-02-20 18:33:00 Test Item Value Reference Range Interpretation Comments A/G Ratio (test code = A/G Ratio) 0.6 0.7-1.6 [facility]2017-02-20 18:33:00 Test Item Value Reference Range Interpretation Comments Globulin (test code = Globulin) 4.7 2.7-4.2 [facility]2017-02-20 18:33:00 Test Item Value Reference Range Interpretation Comments AGAP (test code = AGAP) 12.0 10.0-20.0 [facility]2017-02-20 18:33:00 Test Item Value Reference Range Interpretation Comments Bili Total (test code = Bili Total) 0.2 0.2-1.3 [facility]2017-02-20 18:33:00 Test Item Value Reference Range Interpretation Comments Alk Phos (test code = Alk Phos) 116 39-136 [facility]2017-02-20 18:33:00 Test Item Value Reference Range Interpretation Comments CO2 (test code = CO2) 30 24-32 [facility]2017-02-20 18:33:00 Test Item Value Reference Range Interpretation Comments Chloride Lvl (test code = Chloride Lvl) 99 95-109 [facility]2017-02-20 18:33:00 Test Item Value Reference Range Interpretation Comments BUN (test code = BUN) 14 7-22 [facility]2017-02-20 18:33:00 Test Item Value Reference Range Interpretation Comments Glucose Lvl (test code = Glucose Lvl) 128 70-99 [facility]2017-02-20 18:33:00 Test Item Value Reference Range Interpretation Comments Creatinine Lvl (test code = Creatinine 0.74 0.50-1.40 Lvl) [facility]2017-02-20 18:33:00 Test Item Value Reference Range Interpretation Comments Potassium Lvl (test code = Potassium 5.0 3.5-5.1 Lvl) [facility]2017-02-20 18:33:00 Test Item Value Reference Range Interpretation Comments Sodium Lvl (test code = Sodium Lvl) 136 135-145 [facility]2017-02-20 18:33:00 Test Item Value Reference Range Interpretation Comments Total Protein (test code = Total 7.7 6.4-8.4 Protein) [facility]2017-02-20 18:33:00 Test Item Value Reference Range Interpretation Comments Calcium Lvl (test code = Calcium Lvl) 8.7 8.5-10.5 [facility]2017-02-20 18:33:00 Test Item Value Reference Range Interpretation Comments ALT (test code = ALT) 21 See_Comment [Auto mated message] The system which ge nerated this result transmit neli reference range : <=65. The reference range was not used to interpr et this result as felipe l/abnormal. [facility]2017-02-20 18:33:00 Test Item Value Reference Range Interpretation Comments Albumin Lvl (test code = Albumin Lvl) 3.0 3.5-5.0 [facility]2017-02-20 18:33:00 Test Item Value Reference Range Interpretation Comments AST (test code = AST) 27 See_Comment [Auto mated message] The system which ge nerated this result transmit neli reference range : <=37. The reference range was not used to interpr et this result as felipe l/abnormal. [facility] [id number] 18:33:00 Test Item Value Reference Range Interpretation Comments C-REACTIVE PROTEIN (test code = 44.4 C-REACTIVE PROTEIN) [facility]2017-02-20 18:33:00 Test Item Value Reference Range Interpretation Comments Lactic Acid Lvl (test code = Lactic 1.3 0.5-2.2 Acid Lvl) [facility]2017-02-20 18:33:00 Test Item Value Reference Range Interpretation Comments eGFR (test code = eGFR) 91 [facility]2017-02-20 18:33:00 Test Item Value Reference Range Interpretation Comments B/C Ratio (test code = B/C Ratio) 19 6-25 [facility]2017-02-20 18:33:00 Test Item Value Reference Range Interpretation Comments A/G Ratio (test code = A/G Ratio) 0.6 0.7-1.6 [facility]2017-02-20 18:33:00 Test Item Value Reference Range Interpretation Comments Globulin (test code = Globulin) 4.7 2.7-4.2 [facility]2017-02-20 18:33:00 Test Item Value Reference Range Interpretation Comments AGAP (test code = AGAP) 12.0 10.0-20.0 [facility]2017-02-20 18:33:00 Test Item Value Reference Range Interpretation Comments Bili Total (test code = Bili Total) 0.2 0.2-1.3 [facility]2017-02-20 18:33:00 Test Item Value Reference Range Interpretation Comments Alk Phos (test code = Alk Phos) 116 39-136 [facility]2017-02-20 18:33:00 Test Item Value Reference Range Interpretation Comments CO2 (test code = CO2) 30 24-32 [facility]2017-02-20 18:33:00 Test Item Value Reference Range Interpretation Comments Chloride Lvl (test code = Chloride Lvl) 99 95-109 [facility]2017-02-20 18:33:00 Test Item Value Reference Range Interpretation Comments BUN (test code = BUN) 14 7-22 [facility]2017-02-20 18:33:00 Test Item Value Reference Range Interpretation Comments Glucose Lvl (test code = Glucose Lvl) 128 70-99 [facility]2017-02-20 18:33:00 Test Item Value Reference Range Interpretation Comments Creatinine Lvl (test code = Creatinine 0.74 0.50-1.40 Lvl) [facility]2017-02-20 18:33:00 Test Item Value Reference Range Interpretation Comments Potassium Lvl (test code = Potassium 5.0 3.5-5.1 Lvl) [facility]2017-02-20 18:33:00 Test Item Value Reference Range Interpretation Comments Sodium Lvl (test code = Sodium Lvl) 136 135-145 [facility]2017-02-20 18:33:00 Test Item Value Reference Range Interpretation Comments Total Protein (test code = Total 7.7 6.4-8.4 Protein) [facility]2017-02-20 18:33:00 Test Item Value Reference Range Interpretation Comments Calcium Lvl (test code = Calcium Lvl) 8.7 8.5-10.5 [facility]2017-02-20 18:33:00 Test Item Value Reference Range Interpretation Comments ALT (test code = ALT) 21 See_Comment [Auto mated message] The system which ge nerated this result transmit neli reference range : <=65. The reference range was not used to interpr et this result as felipe l/abnormal. [facility]2017-02-20 18:33:00 Test Item Value Reference Range Interpretation Comments Albumin Lvl (test code = Albumin Lvl) 3.0 3.5-5.0 [facility]2017-02-20 18:33:00 Test Item Value Reference Range Interpretation Comments AST (test code = AST) 27 See_Comment [Auto mated message] The system which ge nerated this result transmit neli reference range : <=37. The reference range was not used to interpr et this result as felipe l/abnormal. [facility] [id number] 18:33:00 Test Item Value Reference Range Interpretation Comments C-REACTIVE PROTEIN (test code = 44.4 C-REACTIVE PROTEIN) [facility]2017-02-20 18:33:00 Test Item Value Reference Range Interpretation Comments Lactic Acid Lvl (test code = Lactic 1.3 0.5-2.2 Acid Lvl) [facility]2017-02-20 18:33:00 Test Item Value Reference Range Interpretation Comments eGFR (test code = eGFR) 91 [facility]2017-02-20 18:33:00 Test Item Value Reference Range Interpretation Comments B/C Ratio (test code = B/C Ratio) 19 6-25 [facility]2017-02-20 18:33:00 Test Item Value Reference Range Interpretation Comments A/G Ratio (test code = A/G Ratio) 0.6 0.7-1.6 [facility]2017-02-20 18:33:00 Test Item Value Reference Range Interpretation Comments Globulin (test code = Globulin) 4.7 2.7-4.2 [facility]2017-02-20 18:33:00 Test Item Value Reference Range Interpretation Comments AGAP (test code = AGAP) 12.0 10.0-20.0 [facility]2017-02-20 18:33:00 Test Item Value Reference Range Interpretation Comments Bili Total (test code = Bili Total) 0.2 0.2-1.3 [facility]2017-02-20 18:33:00 Test Item Value Reference Range Interpretation Comments Alk Phos (test code = Alk Phos) 116 39-136 [facility]2017-02-20 18:33:00 Test Item Value Reference Range Interpretation Comments CO2 (test code = CO2) 30 24-32 [facility]2017-02-20 18:33:00 Test Item Value Reference Range Interpretation Comments Chloride Lvl (test code = Chloride Lvl) 99 95-109 [facility]2017-02-20 18:33:00 Test Item Value Reference Range Interpretation Comments BUN (test code = BUN) 14 7-22 [facility]2017-02-20 18:33:00 Test Item Value Reference Range Interpretation Comments Glucose Lvl (test code = Glucose Lvl) 128 70-99 [facility]2017-02-20 18:33:00 Test Item Value Reference Range Interpretation Comments Creatinine Lvl (test code = Creatinine 0.74 0.50-1.40 Lvl) [facility]2017-02-20 18:33:00 Test Item Value Reference Range Interpretation Comments Potassium Lvl (test code = Potassium 5.0 3.5-5.1 Lvl) [facility]2017-02-20 18:33:00 Test Item Value Reference Range Interpretation Comments Sodium Lvl (test code = Sodium Lvl) 136 135-145 [facility]2017-02-20 18:33:00 Test Item Value Reference Range Interpretation Comments Total Protein (test code = Total 7.7 6.4-8.4 Protein) [facility]2017-02-20 18:33:00 Test Item Value Reference Range Interpretation Comments Calcium Lvl (test code = Calcium Lvl) 8.7 8.5-10.5 [facility]2017-02-20 18:33:00 Test Item Value Reference Range Interpretation Comments ALT (test code = ALT) 21 See_Comment [Auto mated message] The system which ge nerated this result transmit neli reference range : <=65. The reference range was not used to interpr et this result as felipe l/abnormal. [facility] [id number] 18:33:00 Test Item Value Reference Range Interpretation Comments Albumin Lvl (test code = Albumin Lvl) 3.0 3.5-5.0 [facility]2017-02-20 18:33:00 Test Item Value Reference Range Interpretation Comments AST (test code = AST) 27 See_Comment [Auto mated message] The system which ge nerated this result transmit neli reference range : <=37. The reference range was not used to interpr et this result as felipe l/abnormal. [facility] [id number] 18:33:00 Test Item Value Reference Range Interpretation Comments C-REACTIVE PROTEIN (test code = 44.4 C-REACTIVE PROTEIN) [facility] [id number] 18:33:00 Test Item Value Reference Range Interpretation Comments Lactic Acid Lvl (test code = Lactic 1.3 0.5-2.2 Acid Lvl) [facility] [id number] 18:33:00 Test Item Value Reference Range Interpretation Comments eGFR (test code = eGFR) 91 [facility] [id number] 18:33:00 Test Item Value Reference Range Interpretation Comments B/C Ratio (test code = B/C Ratio) 19 6-25 [facility] [id number] 18:33:00 Test Item Value Reference Range Interpretation Comments A/G Ratio (test code = A/G Ratio) 0.6 0.7-1.6 [facility] [id number] 18:33:00 Test Item Value Reference Range Interpretation Comments Globulin (test code = Globulin) 4.7 2.7-4.2 [facility] [id number] 18:33:00 Test Item Value Reference Range Interpretation Comments AGAP (test code = AGAP) 12.0 10.0-20.0 [facility] [id number] 18:33:00 Test Item Value Reference Range Interpretation Comments Bili Total (test code = Bili Total) 0.2 0.2-1.3 [facility] [id number] 18:33:00 Test Item Value Reference Range Interpretation Comments Alk Phos (test code = Alk Phos) 116 39-136 [facility]annBL[id number] 18:33:00 Test Item Value Reference Range Interpretation Comments CO2 (test code = CO2) 30 24-32 [facility]2017-02-20 18:33:00 Test Item Value Reference Range Interpretation Comments Chloride Lvl (test code = Chloride Lvl) 99 95-109 [facility]2017-02-20 18:33:00 Test Item Value Reference Range Interpretation Comments BUN (test code = BUN) 14 7-22 [facility]2017-02-20 18:33:00 Test Item Value Reference Range Interpretation Comments Glucose Lvl (test code = Glucose Lvl) 128 70-99 [facility]2017-02-20 18:33:00 Test Item Value Reference Range Interpretation Comments Creatinine Lvl (test code = Creatinine 0.74 0.50-1.40 Lvl) [facility]2017-02-20 18:33:00 Test Item Value Reference Range Interpretation Comments Potassium Lvl (test code = Potassium 5.0 3.5-5.1 Lvl) [facility]2017-02-20 18:33:00 Test Item Value Reference Range Interpretation Comments Sodium Lvl (test code = Sodium Lvl) 136 135-145 [facility]2017-02-20 18:33:00 Test Item Value Reference Range Interpretation Comments Total Protein (test code = Total 7.7 6.4-8.4 Protein) [facility]2017-02-20 18:33:00 Test Item Value Reference Range Interpretation Comments Calcium Lvl (test code = Calcium Lvl) 8.7 8.5-10.5 [facility]2017-02-20 18:33:00 Test Item Value Reference Range Interpretation Comments ALT (test code = ALT) 21 See_Comment [Auto mated message] The system which ge nerated this result transmit neli reference range : <=65. The reference range was not used to interpr et this result as felipe l/abnormal. [facility]2017-02-20 18:33:00 Test Item Value Reference Range Interpretation Comments Albumin Lvl (test code = Albumin Lvl) 3.0 3.5-5.0 [facility]2017-02-20 18:33:00 Test Item Value Reference Range Interpretation Comments AST (test code = AST) 27 See_Comment [Auto mated message] The system which ge nerated this result transmit neli reference range : <=37. The reference range was not used to interpr et this result as felipe l/abnormal. [facility] [id number] 18:33:00 Test Item Value Reference Range Interpretation Comments C-REACTIVE PROTEIN (test code = 44.4 C-REACTIVE PROTEIN) [facility]2017-02-20 18:33:00 Test Item Value Reference Range Interpretation Comments Lactic Acid Lvl (test code = Lactic 1.3 0.5-2.2 Acid Lvl) [facility]2017-02-20 18:33:00 Test Item Value Reference Range Interpretation Comments eGFR (test code = eGFR) 91 [facility]2017-02-20 18:33:00 Test Item Value Reference Range Interpretation Comments B/C Ratio (test code = B/C Ratio) 19 6-25 [facility]2017-02-20 18:33:00 Test Item Value Reference Range Interpretation Comments A/G Ratio (test code = A/G Ratio) 0.6 0.7-1.6 [facility]2017-02-20 18:33:00 Test Item Value Reference Range Interpretation Comments Globulin (test code = Globulin) 4.7 2.7-4.2 [facility]2017-02-20 18:33:00 Test Item Value Reference Range Interpretation Comments AGAP (test code = AGAP) 12.0 10.0-20.0 [facility]2017-02-20 18:33:00 Test Item Value Reference Range Interpretation Comments Bili Total (test code = Bili Total) 0.2 0.2-1.3 [facility]2017-02-20 18:33:00 Test Item Value Reference Range Interpretation Comments Alk Phos (test code = Alk Phos) 116 39-136 [facility]2017-02-20 18:33:00 Test Item Value Reference Range Interpretation Comments CO2 (test code = CO2) 30 24-32 [facility]2017-02-20 18:33:00 Test Item Value Reference Range Interpretation Comments Chloride Lvl (test code = Chloride Lvl) 99 95-109 [facility]2017-02-20 18:33:00 Test Item Value Reference Range Interpretation Comments BUN (test code = BUN) 14 7-22 [facility]2017-02-20 18:33:00 Test Item Value Reference Range Interpretation Comments Glucose Lvl (test code = Glucose Lvl) 128 70-99 [facility]2017-02-20 18:33:00 Test Item Value Reference Range Interpretation Comments Creatinine Lvl (test code = Creatinine 0.74 0.50-1.40 Lvl) [facility]2017-02-20 18:33:00 Test Item Value Reference Range Interpretation Comments Potassium Lvl (test code = Potassium 5.0 3.5-5.1 Lvl) [facility]2017-02-20 18:33:00 Test Item Value Reference Range Interpretation Comments Sodium Lvl (test code = Sodium Lvl) 136 135-145 [facility]2017-02-20 18:33:00 Test Item Value Reference Range Interpretation Comments Total Protein (test code = Total 7.7 6.4-8.4 Protein) [facility]2017-02-20 18:33:00 Test Item Value Reference Range Interpretation Comments Calcium Lvl (test code = Calcium Lvl) 8.7 8.5-10.5 [facility]2017-02-20 18:33:00 Test Item Value Reference Range Interpretation Comments ALT (test code = ALT) 21 See_Comment [Auto mated message] The system which ge nerated this result transmit neli reference range : <=65. The reference range was not used to interpr et this result as felipe l/abnormal. [facility]2017-02-20 18:33:00 Test Item Value Reference Range Interpretation Comments Albumin Lvl (test code = Albumin Lvl) 3.0 3.5-5.0 [facility]2017-02-20 18:33:00 Test Item Value Reference Range Interpretation Comments AST (test code = AST) 27 See_Comment [Auto mated message] The system which ge nerated this result transmit neli reference range : <=37. The reference range was not used to interpr et this result as felipe l/abnormal. [facility] [id number] 18:33:00 Test Item Value Reference Range Interpretation Comments C-REACTIVE PROTEIN (test code = 44.4 C-REACTIVE PROTEIN) [facility]2017-02-20 18:33:00 Test Item Value Reference Range Interpretation Comments Lactic Acid Lvl (test code = Lactic 1.3 0.5-2.2 Acid Lvl) [facility]2017-02-20 18:33:00 Test Item Value Reference Range Interpretation Comments eGFR (test code = eGFR) 91 [facility]2017-02-20 18:33:00 Test Item Value Reference Range Interpretation Comments B/C Ratio (test code = B/C Ratio) 19 6-25 [facility]2017-02-20 18:33:00 Test Item Value Reference Range Interpretation Comments A/G Ratio (test code = A/G Ratio) 0.6 0.7-1.6 [facility]2017-02-20 18:33:00 Test Item Value Reference Range Interpretation Comments Globulin (test code = Globulin) 4.7 2.7-4.2 [facility]2017-02-20 18:33:00 Test Item Value Reference Range Interpretation Comments AGAP (test code = AGAP) 12.0 10.0-20.0 [facility]2017-02-20 18:33:00 Test Item Value Reference Range Interpretation Comments Bili Total (test code = Bili Total) 0.2 0.2-1.3 [facility]2017-02-20 18:33:00 Test Item Value Reference Range Interpretation Comments Alk Phos (test code = Alk Phos) 116 39-136 [facility]2017-02-20 18:33:00 Test Item Value Reference Range Interpretation Comments CO2 (test code = CO2) 30 24-32 [facility]2017-02-20 18:33:00 Test Item Value Reference Range Interpretation Comments Chloride Lvl (test code = Chloride Lvl) 99 95-109 [facility]2017-02-20 18:33:00 Test Item Value Reference Range Interpretation Comments BUN (test code = BUN) 14 7-22 [facility]2017-02-20 18:33:00 Test Item Value Reference Range Interpretation Comments Glucose Lvl (test code = Glucose Lvl) 128 70-99 [facility]2017-02-20 18:33:00 Test Item Value Reference Range Interpretation Comments Creatinine Lvl (test code = Creatinine 0.74 0.50-1.40 Lvl) [facility]2017-02-20 18:33:00 Test Item Value Reference Range Interpretation Comments Potassium Lvl (test code = Potassium 5.0 3.5-5.1 Lvl) [facility]2017-02-20 18:33:00 Test Item Value Reference Range Interpretation Comments Sodium Lvl (test code = Sodium Lvl) 136 135-145 [facility]2017-02-20 18:33:00 Test Item Value Reference Range Interpretation Comments Total Protein (test code = Total 7.7 6.4-8.4 Protein) [facility]2017-02-20 18:33:00 Test Item Value Reference Range Interpretation Comments Calcium Lvl (test code = Calcium Lvl) 8.7 8.5-10.5 [facility]2017-02-20 18:33:00 Test Item Value Reference Range Interpretation Comments ALT (test code = ALT) 21 See_Comment [Auto mated message] The system which ge nerated this result transmit neli reference range : <=65. The reference range was not used to interpr et this result as felipe l/abnormal. [facility]2017-02-20 18:33:00 Test Item Value Reference Range Interpretation Comments Albumin Lvl (test code = Albumin Lvl) 3.0 3.5-5.0 [facility]2017-02-20 18:33:00 Test Item Value Reference Range Interpretation Comments AST (test code = AST) 27 See_Comment [Auto mated message] The system which ge nerated this result transmit neli reference range : <=37. The reference range was not used to interpr et this result as felipe l/abnormal. [facility] [id number] 18:33:00 Test Item Value Reference Range Interpretation Comments C-REACTIVE PROTEIN (test code = 44.4 C-REACTIVE PROTEIN) [facility]2017-02-20 18:33:00 Test Item Value Reference Range Interpretation Comments Lactic Acid Lvl (test code = Lactic 1.3 0.5-2.2 Acid Lvl) [facility]2017-02-20 18:33:00 Test Item Value Reference Range Interpretation Comments eGFR (test code = eGFR) 91 [facility]2017-02-20 18:33:00 Test Item Value Reference Range Interpretation Comments B/C Ratio (test code = B/C Ratio) 19 6-25 [facility]2017-02-20 18:33:00 Test Item Value Reference Range Interpretation Comments A/G Ratio (test code = A/G Ratio) 0.6 0.7-1.6 [facility]2017-02-20 18:33:00 Test Item Value Reference Range Interpretation Comments Globulin (test code = Globulin) 4.7 2.7-4.2 [facility]2017-02-20 18:33:00 Test Item Value Reference Range Interpretation Comments AGAP (test code = AGAP) 12.0 10.0-20.0 [facility]2017-02-20 18:33:00 Test Item Value Reference Range Interpretation Comments Bili Total (test code = Bili Total) 0.2 0.2-1.3 [facility]2017-02-20 18:33:00 Test Item Value Reference Range Interpretation Comments Alk Phos (test code = Alk Phos) 116 39-136 [facility]2017-02-20 18:33:00 Test Item Value Reference Range Interpretation Comments CO2 (test code = CO2) 30 24-32 [facility]2017-02-20 18:33:00 Test Item Value Reference Range Interpretation Comments Chloride Lvl (test code = Chloride Lvl) 99 95-109 [facility]2017-02-20 18:33:00 Test Item Value Reference Range Interpretation Comments BUN (test code = BUN) 14 7-22 [facility]2017-02-20 18:33:00 Test Item Value Reference Range Interpretation Comments Glucose Lvl (test code = Glucose Lvl) 128 70-99 [facility]2017-02-20 18:33:00 Test Item Value Reference Range Interpretation Comments Creatinine Lvl (test code = Creatinine 0.74 0.50-1.40 Lvl) [facility]2017-02-20 18:33:00 Test Item Value Reference Range Interpretation Comments Potassium Lvl (test code = Potassium 5.0 3.5-5.1 Lvl) [facility]2017-02-20 18:33:00 Test Item Value Reference Range Interpretation Comments Sodium Lvl (test code = Sodium Lvl) 136 135-145 [facility]2017-02-20 18:33:00 Test Item Value Reference Range Interpretation Comments Total Protein (test code = Total 7.7 6.4-8.4 Protein) [facility]2017-02-20 18:33:00 Test Item Value Reference Range Interpretation Comments Calcium Lvl (test code = Calcium Lvl) 8.7 8.5-10.5 [facility]2017-02-20 18:33:00 Test Item Value Reference Range Interpretation Comments ALT (test code = ALT) 21 See_Comment [Auto mated message] The system which ge nerated this result transmit neli reference range : <=65. The reference range was not used to interpr et this result as felipe l/abnormal. [facility]2017-02-20 18:33:00 Test Item Value Reference Range Interpretation Comments Albumin Lvl (test code = Albumin Lvl) 3.0 3.5-5.0 [facility]2017-02-20 18:33:00 Test Item Value Reference Range Interpretation Comments AST (test code = AST) 27 See_Comment [Auto mated message] The system which ge nerated this result transmit neli reference range : <=37. The reference range was not used to interpr et this result as felipe l/abnormal. [facility]ud[facility]ANCICXZVW2350-57[facility]55 18:33:00 Test Item Value Reference Range Interpretation Comments C-REACTIVE PROTEIN (test code = 44.4 C-REACTIVE PROTEIN) [facility]stHaasjifYVAKQXKHFV7502-07-37 14:38:00 Test Item Value Reference Range Interpretation Comments Segs-Bands # (test code = Segs-Bands #) 4.5 1.5-8.1 [facility]stPfctezwJSZUVNNEGY1757-77-44 14:38:00 Test Item Value Reference Range Interpretation Comments Basophils (test code = 0.5 See_Comment [Aut omated message] The Basophils) system which ge nerated this result tra nsmitted reference range : <=1.0. The reference r lv was not used to int erpret this result as normal/abnormal . [facility]stFbmtghdJRNNVLISXZ2970-37-69 14:38:00 Test Item Value Reference Range Interpretation Comments Monocytes (test code = Monocytes) 5.8 2.0-12.0 [place] 843826-06-23 14:38:00 Test Item Value Reference Range Interpretation Comments Eosinophils (test code = 1.4 See_Comment [A utomated message] The Eosinophils) system which ge nerated this result tra nsmitted reference range : <=4.0. The reference r lv was not used to int erpret this result as normal/abnormal . [facility]stJthgqroKZIIDHOKUZ6287-66-41 14:38:00 Test Item Value Reference Range Interpretation Comments Eosinophils # (test code 0.1 See_Comment [A utomated message] The = Eosinophils #) system whic h generated this result tra nsmitted reference range : <=0.5. The reference r lv was not used to int erpret this result as normal/abnormal . [facility]LkhloefDTREBSETHP4286-81-50 14:38:00 Test Item Value Reference Range Interpretation Comments HIV 1/2 Ab (test code Negative *NA*(08/03/15 = HIV 1/2 Ab) 9:38 AM) [facility]anoJarupslVQTDDPGLKD1588-51-29 14:38:00 Test Item Value Reference Range Interpretation Comments Hep C Ab (test code = Negative *NA*(08/03/15 Hep C Ab) 9:38 AM) [facility]2016-06-23 14:38:00 Test Item Value Reference Range Interpretation Comments eGFR (test code = eGFR) 79 [facility]2016-06-23 14:38:00 Test Item Value Reference Range Interpretation Comments Sodium Lvl (test code = Sodium Lvl) 144 135-145 [facility]2016-06-23 14:38:00 Test Item Value Reference Range Interpretation Comments Chloride Lvl (test code = Chloride Lvl) 104 95-109 [facility]2016-06-23 14:38:00 Test Item Value Reference Range Interpretation Comments Potassium Lvl (test code = Potassium 4.6 3.5-5.1 Lvl) [facility]2016-06-23 14:38:00 Test Item Value Reference Range Interpretation Comments Calcium Lvl (test code = Calcium Lvl) 9.4 8.5-10.5 [facility]2016-06-23 14:38:00 Test Item Value Reference Range Interpretation Comments CO2 (test code = CO2) 31 24-32 [facility]2016-06-23 14:38:00 Test Item Value Reference Range Interpretation Comments Glucose Lvl (test code = Glucose Lvl) 126 70-99 [facility]2016-06-23 14:38:00 Test Item Value Reference Range Interpretation Comments Creatinine Lvl (test code = Creatinine 0.84 0.50-1.40 Lvl) [facility]2016-06-23 14:38:00 Test Item Value Reference Range Interpretation Comments BUN (test code = BUN) 17 7-22 [facility]2016-06-23 14:38:00 Test Item Value Reference Range Interpretation Comments AGAP (test code = AGAP) 13.6 10.0-20.0 [facility]stReasyadXLWQRVEXTT6605-95-16 14:38:00 Test Item Value Reference Range Interpretation Comments MCH (test code = MCH) 28.8 pg 27.0-31.0 [facility]stOwiwvjnHBKWBMXJKJ4785-57-39 14:38:00 Test Item Value Reference Range Interpretation Comments Hgb (test code = Hgb) 12.1 12.0-16.0 [facility]stTuupeemVXTQJAMIZZ0646-83-59 14:38:00 Test Item Value Reference Range Interpretation Comments RBC (test code = RBC) 4.20 4.20-5.40 [facility]stQkcdursPMEYKZKBXX7147-30-40 14:38:00 Test Item Value Reference Range Interpretation Comments MCV (test code = MCV) 89.2 80.0-98.0 [facility]stHoyjdzaRSRPMPGSVJ7231-95-13 14:38:00 Test Item Value Reference Range Interpretation Comments Hct (test code = Hct) 37.5 36.0-48.0 [facility]stYrcfkbvCAQIQNATOW8756-09-88 14:38:00 Test Item Value Reference Range Interpretation Comments WBC (test code = WBC) 7.4 3.7-10.4 [facility]stNyhurefMAGOCDVNHC4170-08-43 14:38:00 Test Item Value Reference Range Interpretation Comments MCHC (test code = MCHC) 32.3 32.0-36.0 [facility]stWrfmjssMTXPLUHBBE9611-45-44 14:38:00 Test Item Value Reference Range Interpretation Comments RDW (test code = RDW) 14.3 11.5-14.5 [facility]stDqmsvekHDELAYFFFW4829-29-69 14:38:00 Test Item Value Reference Range Interpretation Comments MPV (test code = MPV) 9.3 7.4-10.4 [facility]stAznaxmlPPVRXYSGAB9881-46-74 14:38:00 Test Item Value Reference Range Interpretation Comments Platelet (test code = Platelet) 193 133-450 [facility]stKwyhnusDDUNGZVCLN1031-97-95 14:38:00 Test Item Value Reference Range Interpretation Comments Basophils # (test code 0.0 See_Comment [Aut omated message] The = Basophils #) system which generated this result tra nsmitted reference range : <=0.2. The reference r lv was not used to int erpret this result as normal/abnormal . [facility]stFhxgetoVMMXQTTVIQ5889-23-70 14:38:00 Test Item Value Reference Range Interpretation Comments Segs (test code = Segs) 61.4 45.0-75.0 [facility]stLltliqbVZPYTPPSDD4896-33-92 14:38:00 Test Item Value Reference Range Interpretation Comments Lymphocytes (test code = Lymphocytes) 30.9 20.0-40.0 [facility]stHtoaqguRFOGYWXWWE6816-58-68 14:38:00 Test Item Value Reference Range Interpretation Comments Lymphocytes # (test code = Lymphocytes 2.3 1.0-5.5 #) [facility]stXrbeoufIDCMFDTGGU1623-24-45 14:38:00 Test Item Value Reference Range Interpretation Comments Monocytes # (test code 0.4 See_Comment [Aut omated message] The = Monocytes #) system which generated this result tra nsmitted reference range : <=0.8. The reference r lv was not used to int erpret this result as normal/abnormal . [facility]stPsapqgpWRSLCOODXF9133-18-23 14:38:00 Test Item Value Reference Range Interpretation Comments Segs-Bands # (test code = Segs-Bands #) 4.5 1.5-8.1 [facility]stMdnsnmgWPSDYABAVW7693-37-04 14:38:00 Test Item Value Reference Range Interpretation Comments Basophils (test code = 0.5 See_Comment [Aut omated message] The Basophils) system which ge nerated this result tra nsmitted reference range : <=1.0. The reference r lv was not used to int erpret this result as normal/abnormal . [facility]stOfiuncqWIEOQYDDMT6914-10-88 14:38:00 Test Item Value Reference Range Interpretation Comments Monocytes (test code = Monocytes) 5.8 2.0-12.0 [facility]stEiubkfpVQLILDLDVG4162-88-53 14:38:00 Test Item Value Reference Range Interpretation Comments Eosinophils (test code = 1.4 See_Comment [A utomated message] The Eosinophils) system which ge nerated this result tra nsmitted reference range : <=4.0. The reference r lv was not used to int erpret this result as normal/abnormal . [facility]stFgugvesYMYYNHHDWD9047-63-39 14:38:00 Test Item Value Reference Range Interpretation Comments Eosinophils # (test code 0.1 See_Comment [A utomated message] The = Eosinophils #) system whic h generated this result tra nsmitted reference range : <=0.5. The reference r lv was not used to int erpret this result as normal/abnormal . [facility]EqtcbwkVHEFGKRFWG9812-75-48 14:38:00 Test Item Value Reference Range Interpretation Comments HIV 1/2 Ab (test code Negative *NA*(08/03/15 = HIV 1/2 Ab) 9:38 AM) [facility]anoNeloeysCVRYSUMNRJ0621-75-33 14:38:00 Test Item Value Reference Range Interpretation Comments Hep C Ab (test code = Negative *NA*(08/03/15 Hep C Ab) 9:38 AM) [facility]2016-06-23 14:38:00 Test Item Value Reference Range Interpretation Comments eGFR (test code = eGFR) 79 [facility]2016-06-23 14:38:00 Test Item Value Reference Range Interpretation Comments Sodium Lvl (test code = Sodium Lvl) 144 135-145 [facility]2016-06-23 14:38:00 Test Item Value Reference Range Interpretation Comments Chloride Lvl (test code = Chloride Lvl) 104 95-109 [facility]2016-06-23 14:38:00 Test Item Value Reference Range Interpretation Comments Potassium Lvl (test code = Potassium 4.6 3.5-5.1 Lvl) [facility]2016-06-23 14:38:00 Test Item Value Reference Range Interpretation Comments Calcium Lvl (test code = Calcium Lvl) 9.4 8.5-10.5 [facility]2016-06-23 14:38:00 Test Item Value Reference Range Interpretation Comments CO2 (test code = CO2) 31 24-32 [facility]2016-06-23 14:38:00 Test Item Value Reference Range Interpretation Comments Glucose Lvl (test code = Glucose Lvl) 126 70-99 [facility]2016-06-23 14:38:00 Test Item Value Reference Range Interpretation Comments Creatinine Lvl (test code = Creatinine 0.84 0.50-1.40 Lvl) [facility]2016-06-23 14:38:00 Test Item Value Reference Range Interpretation Comments BUN (test code = BUN) 17 7-22 [facility]2016-06-23 14:38:00 Test Item Value Reference Range Interpretation Comments AGAP (test code = AGAP) 13.6 10.0-20.0 [facility]stGayiiamXPOZNMLBJO1349-29-15 14:38:00 Test Item Value Reference Range Interpretation Comments MCH (test code = MCH) 28.8 pg 27.0-31.0 [facility]stLbgpthpFDAGNTTVTQ9812-68-72 14:38:00 Test Item Value Reference Range Interpretation Comments Hgb (test code = Hgb) 12.1 12.0-16.0 [facility]stDfccmkgXCXUHINCKE3804-39-97 14:38:00 Test Item Value Reference Range Interpretation Comments RBC (test code = RBC) 4.20 4.20-5.40 [facility]stLpedapeAUNJTFZXEB9283-64-22 14:38:00 Test Item Value Reference Range Interpretation Comments MCV (test code = MCV) 89.2 80.0-98.0 [facility]stRytrffhSECIZPYXVB0819-77-44 14:38:00 Test Item Value Reference Range Interpretation Comments Hct (test code = Hct) 37.5 36.0-48.0 [facility]stWicssrfRRJWWRADDP4059-94-53 14:38:00 Test Item Value Reference Range Interpretation Comments WBC (test code = WBC) 7.4 3.7-10.4 [facility]stFkaminwJNXXVKCYCE7598-80-90 14:38:00 Test Item Value Reference Range Interpretation Comments MCHC (test code = MCHC) 32.3 32.0-36.0 [facility]stBukpglaANIJVTYSNV8300-41-21 14:38:00 Test Item Value Reference Range Interpretation Comments RDW (test code = RDW) 14.3 11.5-14.5 [facility]stBkoidmiTLQKMTLGSG5201-96-61 14:38:00 Test Item Value Reference Range Interpretation Comments MPV (test code = MPV) 9.3 7.4-10.4 [facility]stXdvhnakGNNNDLLIOW0818-64-57 14:38:00 Test Item Value Reference Range Interpretation Comments Platelet (test code = Platelet) 193 133-450 [facility]stJcmyrppYRLLOXFIPY5167-79-18 14:38:00 Test Item Value Reference Range Interpretation Comments Basophils # (test code 0.0 See_Comment [Aut omated message] The = Basophils #) system which generated this result tra nsmitted reference range : <=0.2. The reference r lv was not used to int erpret this result as normal/abnormal . [facility]stZaqfoeqGZBDNFPDKY0804-23-76 14:38:00 Test Item Value Reference Range Interpretation Comments Segs (test code = Segs) 61.4 45.0-75.0 [facility]stGxmuamuOPODSDVAVB9084-44-77 14:38:00 Test Item Value Reference Range Interpretation Comments Lymphocytes (test code = Lymphocytes) 30.9 20.0-40.0 [facility]stXprrbexNFJAUZYFYB6641-73-07 14:38:00 Test Item Value Reference Range Interpretation Comments Lymphocytes # (test code = Lymphocytes 2.3 1.0-5.5 #) [facility]stKrjkjkaZRGJKGDFDW2399-19-41 14:38:00 Test Item Value Reference Range Interpretation Comments Monocytes # (test code 0.4 See_Comment [Aut omated message] The = Monocytes #) system which generated this result tra nsmitted reference range : <=0.8. The reference r lv was not used to int erpret this result as normal/abnormal . [facility]stWemcawhKEJBVSOYRG7143-89-74 14:38:00 Test Item Value Reference Range Interpretation Comments Segs-Bands # (test code = Segs-Bands #) 4.5 1.5-8.1 [facility]stXspedubVBUFWLWMRI5404-84-07 14:38:00 Test Item Value Reference Range Interpretation Comments Basophils (test code = 0.5 See_Comment [Aut omated message] The Basophils) system which ge nerated this result tra nsmitted reference range : <=1.0. The reference r lv was not used to int erpret this result as normal/abnormal . [facility]stWfhvbyvWFLBXPXEJG1654-45-16 14:38:00 Test Item Value Reference Range Interpretation Comments Monocytes (test code = Monocytes) 5.8 2.0-12.0 [facility]stIipxiwtGGBIPJLHBD3500-79-27 14:38:00 Test Item Value Reference Range Interpretation Comments Eosinophils (test code = 1.4 See_Comment [A utomated message] The Eosinophils) system which ge nerated this result tra nsmitted reference range : <=4.0. The reference r lv was not used to int erpret this result as normal/abnormal . [facility]stXsrmpgvSFNBOWZMQE0165-96-81 14:38:00 Test Item Value Reference Range Interpretation Comments Eosinophils # (test code 0.1 See_Comment [A utomated message] The = Eosinophils #) system whic h generated this result tra nsmitted reference range : <=0.5. The reference r lv was not used to int erpret this result as normal/abnormal . [facility]DyjtrloANTVWETMYD1022-68-81 14:38:00 Test Item Value Reference Range Interpretation Comments HIV 1/2 Ab (test code Negative *NA*(08/03/15 = HIV 1/2 Ab) 9:38 AM) [facility]VvdyivmVMXTVSGICG7954-27-31 14:38:00 Test Item Value Reference Range Interpretation Comments Hep C Ab (test code = Negative *NA*(08/03/15 Hep C Ab) 9:38 AM) [facility]2016-06-23 14:38:00 Test Item Value Reference Range Interpretation Comments eGFR (test code = eGFR) 79 [facility]2016-06-23 14:38:00 Test Item Value Reference Range Interpretation Comments Sodium Lvl (test code = Sodium Lvl) 144 135-145 [facility]2016-06-23 14:38:00 Test Item Value Reference Range Interpretation Comments Chloride Lvl (test code = Chloride Lvl) 104 95-109 [facility]2016-06-23 14:38:00 Test Item Value Reference Range Interpretation Comments Potassium Lvl (test code = Potassium 4.6 3.5-5.1 Lvl) [facility]2016-06-23 14:38:00 Test Item Value Reference Range Interpretation Comments Calcium Lvl (test code = Calcium Lvl) 9.4 8.5-10.5 [facility]2016-06-23 14:38:00 Test Item Value Reference Range Interpretation Comments CO2 (test code = CO2) 31 24-32 [facility]2016-06-23 14:38:00 Test Item Value Reference Range Interpretation Comments Glucose Lvl (test code = Glucose Lvl) 126 70-99 [facility]2016-06-23 14:38:00 Test Item Value Reference Range Interpretation Comments Creatinine Lvl (test code = Creatinine 0.84 0.50-1.40 Lvl) [facility]2016-06-23 14:38:00 Test Item Value Reference Range Interpretation Comments BUN (test code = BUN) 17 7-22 [facility]2016-06-23 14:38:00 Test Item Value Reference Range Interpretation Comments AGAP (test code = AGAP) 13.6 10.0-20.0 [facility]stLtngtzqLCKLKMTYKP5913-84-48 14:38:00 Test Item Value Reference Range Interpretation Comments MCH (test code = MCH) 28.8 pg 27.0-31.0 [facility]stMzvqltgGVGEPBQZOE2388-10-47 14:38:00 Test Item Value Reference Range Interpretation Comments Hgb (test code = Hgb) 12.1 12.0-16.0 [facility]stPnnnscsNPCQLJJDOF7512-26-92 14:38:00 Test Item Value Reference Range Interpretation Comments RBC (test code = RBC) 4.20 4.20-5.40 [facility]stGmwlxujASTMKEKSVR5920-41-24 14:38:00 Test Item Value Reference Range Interpretation Comments MCV (test code = MCV) 89.2 80.0-98.0 [facility]stQbwnlkvSLKROPGJFN3780-74-85 14:38:00 Test Item Value Reference Range Interpretation Comments Hct (test code = Hct) 37.5 36.0-48.0 [facility]stFbfkhopOBPYGNLQSU4434-79-81 14:38:00 Test Item Value Reference Range Interpretation Comments WBC (test code = WBC) 7.4 3.7-10.4 [facility]stAqmknucEAKFTBRAUK0665-00-87 14:38:00 Test Item Value Reference Range Interpretation Comments MCHC (test code = MCHC) 32.3 32.0-36.0 [facility]stQsznwgjZMCCNNMFPA3321-46-05 14:38:00 Test Item Value Reference Range Interpretation Comments RDW (test code = RDW) 14.3 11.5-14.5 [facility]stIxszpsjBHOAKAOPQL2243-11-21 14:38:00 Test Item Value Reference Range Interpretation Comments MPV (test code = MPV) 9.3 7.4-10.4 [facility]stIydkrtaYBHTXUYRYO6471-18-79 14:38:00 Test Item Value Reference Range Interpretation Comments Platelet (test code = Platelet) 193 133-450 [facility]stBbmrbkeDOMKMPCZCC9771-39-29 14:38:00 Test Item Value Reference Range Interpretation Comments Basophils # (test code 0.0 See_Comment [Aut omated message] The = Basophils #) system which generated this result tra nsmitted reference range : <=0.2. The reference r lv was not used to int erpret this result as normal/abnormal . [facility]stZpajevcVCCMNGBPZM8636-86-05 14:38:00 Test Item Value Reference Range Interpretation Comments Segs (test code = Segs) 61.4 45.0-75.0 [facility]stXakfgpaCTSBLCFKRJ8358-49-59 14:38:00 Test Item Value Reference Range Interpretation Comments Lymphocytes (test code = Lymphocytes) 30.9 20.0-40.0 [facility]stGxbfmkxZKWEGAPXAM3903-26-04 14:38:00 Test Item Value Reference Range Interpretation Comments Lymphocytes # (test code = Lymphocytes 2.3 1.0-5.5 #) [facility]stIbvpimrQWYBWSBNXZ6203-98-69 14:38:00 Test Item Value Reference Range Interpretation Comments Monocytes # (test code 0.4 See_Comment [Aut omated message] The = Monocytes #) system which generated this result tra nsmitted reference range : <=0.8. The reference r lv was not used to int erpret this result as normal/abnormal . [facility]stKhjfaapSQAYUZHEZY6025-03-09 14:38:00 Test Item Value Reference Range Interpretation Comments Segs-Bands # (test code = Segs-Bands #) 4.5 1.5-8.1 [facility]stPgjtjzuCRGSIHNJLZ9837-62-86 14:38:00 Test Item Value Reference Range Interpretation Comments Basophils (test code = 0.5 See_Comment [Aut omated message] The Basophils) system which ge nerated this result tra nsmitted reference range : <=1.0. The reference r lv was not used to int erpret this result as normal/abnormal . [place] [address]-06-23 14:38:00 Test Item Value Reference Range Interpretation Comments Monocytes (test code = Monocytes) 5.8 2.0-12.0 [facility]stVmaftxvSWLMTTNKHQ3415-74-62 14:38:00 Test Item Value Reference Range Interpretation Comments Eosinophils (test code = 1.4 See_Comment [A utomated message] The Eosinophils) system which ge nerated this result tra nsmitted reference range : <=4.0. The reference r lv was not used to int erpret this result as normal/abnormal . [facility]stTmocxamGZEAYLOPKU3201-85-87 14:38:00 Test Item Value Reference Range Interpretation Comments Eosinophils # (test code 0.1 See_Comment [A utomated message] The = Eosinophils #) system whic h generated this result tra nsmitted reference range : <=0.5. The reference r lv was not used to int erpret this result as normal/abnormal . [facility]KxluewdNGDTAMHEWV0289-46-18 14:38:00 Test Item Value Reference Range Interpretation Comments HIV 1/2 Ab (test code Negative *NA*(08/03/15 = HIV 1/2 Ab) 9:38 AM) [facility]EiegnbkIZVQKMNWAU3919-72-14 14:38:00 Test Item Value Reference Range Interpretation Comments Hep C Ab (test code = Negative *NA*(08/03/15 Hep C Ab) 9:38 AM) [facility]2016-06-23 14:38:00 Test Item Value Reference Range Interpretation Comments eGFR (test code = eGFR) 79 [facility]2016-06-23 14:38:00 Test Item Value Reference Range Interpretation Comments Sodium Lvl (test code = Sodium Lvl) 144 135-145 [facility]2016-06-23 14:38:00 Test Item Value Reference Range Interpretation Comments Chloride Lvl (test code = Chloride Lvl) 104 95-109 [facility]2016-06-23 14:38:00 Test Item Value Reference Range Interpretation Comments Potassium Lvl (test code = Potassium 4.6 3.5-5.1 Lvl) [facility]2016-06-23 14:38:00 Test Item Value Reference Range Interpretation Comments Calcium Lvl (test code = Calcium Lvl) 9.4 8.5-10.5 [facility]2016-06-23 14:38:00 Test Item Value Reference Range Interpretation Comments CO2 (test code = CO2) 31 24-32 [facility]2016-06-23 14:38:00 Test Item Value Reference Range Interpretation Comments Glucose Lvl (test code = Glucose Lvl) 126 70-99 [facility]2016-06-23 14:38:00 Test Item Value Reference Range Interpretation Comments Creatinine Lvl (test code = Creatinine 0.84 0.50-1.40 Lvl) [facility]2016-06-23 14:38:00 Test Item Value Reference Range Interpretation Comments BUN (test code = BUN) 17 7-22 [facility]2016-06-23 14:38:00 Test Item Value Reference Range Interpretation Comments AGAP (test code = AGAP) 13.6 10.0-20.0 [facility]stIbmopleLWEWYBGITV5516-84-02 14:38:00 Test Item Value Reference Range Interpretation Comments MCH (test code = MCH) 28.8 pg 27.0-31.0 [facility]stGyhhhejIJSHLZVIYT8954-56-63 14:38:00 Test Item Value Reference Range Interpretation Comments Hgb (test code = Hgb) 12.1 12.0-16.0 [facility]stXaznmvqRTUZRDOTPJ2141-78-00 14:38:00 Test Item Value Reference Range Interpretation Comments RBC (test code = RBC) 4.20 4.20-5.40 [facility]stQqhpqvrSMAILZMBMK9605-36-61 14:38:00 Test Item Value Reference Range Interpretation Comments MCV (test code = MCV) 89.2 80.0-98.0 [facility]stWrnpomnNHIRWCEEFW8504-13-90 14:38:00 Test Item Value Reference Range Interpretation Comments Hct (test code = Hct) 37.5 36.0-48.0 [facility]stAyufzjyVWGEIZMZMZ9055-22-10 14:38:00 Test Item Value Reference Range Interpretation Comments WBC (test code = WBC) 7.4 3.7-10.4 [facility]stGpekzmjWJATVEXQNW8077-81-17 14:38:00 Test Item Value Reference Range Interpretation Comments MCHC (test code = MCHC) 32.3 32.0-36.0 [facility]stGrvvacxSPSRBOZLXG5107-66-79 14:38:00 Test Item Value Reference Range Interpretation Comments RDW (test code = RDW) 14.3 11.5-14.5 [facility]stAlyitdpEGTJRVDOYY5366-97-73 14:38:00 Test Item Value Reference Range Interpretation Comments MPV (test code = MPV) 9.3 7.4-10.4 [place] 843826-06-23 14:38:00 Test Item Value Reference Range Interpretation Comments Platelet (test code = Platelet) 193 133-450 [facility]stQglhgleATODLGOMUI1739-55-37 14:38:00 Test Item Value Reference Range Interpretation Comments Basophils # (test code 0.0 See_Comment [Aut omated message] The = Basophils #) system which generated this result tra nsmitted reference range : <=0.2. The reference r lv was not used to int erpret this result as normal/abnormal . [facility]stNpffemkKRVQJALDUC6107-94-78 14:38:00 Test Item Value Reference Range Interpretation Comments Segs (test code = Segs) 61.4 45.0-75.0 [facility]stMdyahtlOIUPBIEBZK4905-24-99 14:38:00 Test Item Value Reference Range Interpretation Comments Lymphocytes (test code = Lymphocytes) 30.9 20.0-40.0 [facility]stOmpjxqgSCKXYHOSLE7296-77-55 14:38:00 Test Item Value Reference Range Interpretation Comments Lymphocytes # (test code = Lymphocytes 2.3 1.0-5.5 #) [facility]stFwlpammDLYCPPXMQV6104-31-80 14:38:00 Test Item Value Reference Range Interpretation Comments Monocytes # (test code 0.4 See_Comment [Aut omated message] The = Monocytes #) system which generated this result tra nsmitted reference range : <=0.8. The reference r lv was not used to int erpret this result as normal/abnormal . [facility]stWnwlgtzYWDOIOFASW7892-14-03 14:38:00 Test Item Value Reference Range Interpretation Comments Segs-Bands # (test code = Segs-Bands #) 4.5 1.5-8.1 [facility]stRnorsjbWVFURHKACU8252-46-53 14:38:00 Test Item Value Reference Range Interpretation Comments Basophils (test code = 0.5 See_Comment [Aut omated message] The Basophils) system which ge nerated this result tra nsmitted reference range : <=1.0. The reference r lv was not used to int erpret this result as normal/abnormal . [facility]stOlcvvjzXRRRVHYXML9730-14-39 14:38:00 Test Item Value Reference Range Interpretation Comments Monocytes (test code = Monocytes) 5.8 2.0-12.0 [facility]stTwjsydnWYMPOESVVA6163-68-18 14:38:00 Test Item Value Reference Range Interpretation Comments Eosinophils (test code = 1.4 See_Comment [A utomated message] The Eosinophils) system which ge nerated this result tra nsmitted reference range : <=4.0. The reference r lv was not used to int erpret this result as normal/abnormal . [facility]stBlcauraOSTZCATUKQ6206-85-04 14:38:00 Test Item Value Reference Range Interpretation Comments Eosinophils # (test code 0.1 See_Comment [A utomated message] The = Eosinophils #) system whic h generated this result tra nsmitted reference range : <=0.5. The reference r lv was not used to int erpret this result as normal/abnormal . [facility]anoUbglfkeLUXNDRVOWC5054-98-10 14:38:00 Test Item Value Reference Range Interpretation Comments HIV 1/2 Ab (test code Negative *NA*(08/03/15 = HIV 1/2 Ab) 9:38 AM) [facility]IevorzqKKGRKPIWLD9628-19-48 14:38:00 Test Item Value Reference Range Interpretation Comments Hep C Ab (test code = Negative *NA*(08/03/15 Hep C Ab) 9:38 AM) [facility]2016-06-23 14:38:00 Test Item Value Reference Range Interpretation Comments eGFR (test code = eGFR) 79 [facility]2016-06-23 14:38:00 Test Item Value Reference Range Interpretation Comments Sodium Lvl (test code = Sodium Lvl) 144 135-145 [facility]2016-06-23 14:38:00 Test Item Value Reference Range Interpretation Comments Chloride Lvl (test code = Chloride Lvl) 104 95-109 [facility]2016-06-23 14:38:00 Test Item Value Reference Range Interpretation Comments Potassium Lvl (test code = Potassium 4.6 3.5-5.1 Lvl) [facility]2016-06-23 14:38:00 Test Item Value Reference Range Interpretation Comments Calcium Lvl (test code = Calcium Lvl) 9.4 8.5-10.5 [facility]2016-06-23 14:38:00 Test Item Value Reference Range Interpretation Comments CO2 (test code = CO2) 31 24-32 [facility]2016-06-23 14:38:00 Test Item Value Reference Range Interpretation Comments Glucose Lvl (test code = Glucose Lvl) 126 70-99 [facility]2016-06-23 14:38:00 Test Item Value Reference Range Interpretation Comments Creatinine Lvl (test code = Creatinine 0.84 0.50-1.40 Lvl) [facility]2016-06-23 14:38:00 Test Item Value Reference Range Interpretation Comments BUN (test code = BUN) 17 7-22 [facility]2016-06-23 14:38:00 Test Item Value Reference Range Interpretation Comments AGAP (test code = AGAP) 13.6 10.0-20.0 [facility]stUaqfapkLNLQCSOAVW6731-64-96 14:38:00 Test Item Value Reference Range Interpretation Comments MCH (test code = MCH) 28.8 pg 27.0-31.0 [facility]stKrrylwtBHDPNEVIFH9545-86-11 14:38:00 Test Item Value Reference Range Interpretation Comments Hgb (test code = Hgb) 12.1 12.0-16.0 [facility]stFtdfptjJKTYJADVJN4605-32-11 14:38:00 Test Item Value Reference Range Interpretation Comments RBC (test code = RBC) 4.20 4.20-5.40 [facility]stAndpwjhQTILGAKTTZ8315-94-88 14:38:00 Test Item Value Reference Range Interpretation Comments MCV (test code = MCV) 89.2 80.0-98.0 [facility]stBgsazpjXTUHESGFDO6907-37-37 14:38:00 Test Item Value Reference Range Interpretation Comments Hct (test code = Hct) 37.5 36.0-48.0 [facility]stZwzoxhnFVCTVCHMGN3873-98-94 14:38:00 Test Item Value Reference Range Interpretation Comments WBC (test code = WBC) 7.4 3.7-10.4 [facility]stCbkidlgQFGOCBYYBZ8666-38-30 14:38:00 Test Item Value Reference Range Interpretation Comments MCHC (test code = MCHC) 32.3 32.0-36.0 [facility]stCsusgynFGZCBMESPR6452-84-17 14:38:00 Test Item Value Reference Range Interpretation Comments RDW (test code = RDW) 14.3 11.5-14.5 [facility]stKrmbrokIOIPJHXSCP2222-97-54 14:38:00 Test Item Value Reference Range Interpretation Comments MPV (test code = MPV) 9.3 7.4-10.4 [facility]stZodvaotVYKTQSCDHA9963-74-27 14:38:00 Test Item Value Reference Range Interpretation Comments Platelet (test code = Platelet) 193 133-450 [facility]stIvywnepOFPPAHSVLS3238-43-96 14:38:00 Test Item Value Reference Range Interpretation Comments Basophils # (test code 0.0 See_Comment [Aut omated message] The = Basophils #) system which generated this result tra nsmitted reference range : <=0.2. The reference r lv was not used to int erpret this result as normal/abnormal . [facility]stHdvfclsYIQPGJTCQE0057-84-49 14:38:00 Test Item Value Reference Range Interpretation Comments Segs (test code = Segs) 61.4 45.0-75.0 [facility]stYlebfmyNTHKCLDTNW7615-45-34 14:38:00 Test Item Value Reference Range Interpretation Comments Lymphocytes (test code = Lymphocytes) 30.9 20.0-40.0 [facility]stRvkedfvUQUKGSLUJW6519-75-38 14:38:00 Test Item Value Reference Range Interpretation Comments Lymphocytes # (test code = Lymphocytes 2.3 1.0-5.5 #) [facility]stYyksqxyHPGVCPKDPX9275-87-42 14:38:00 Test Item Value Reference Range Interpretation Comments Monocytes # (test code 0.4 See_Comment [Aut omated message] The = Monocytes #) system which generated this result tra nsmitted reference range : <=0.8. The reference r lv was not used to int erpret this result as normal/abnormal . [facility]stFfpmtosNWHTTXKVSY0728-12-20 14:38:00 Test Item Value Reference Range Interpretation Comments Segs-Bands # (test code = Segs-Bands #) 4.5 1.5-8.1 [facility]stCyvcxxuPYZOTRNEUM6038-16-92 14:38:00 Test Item Value Reference Range Interpretation Comments Basophils (test code = 0.5 See_Comment [Aut omated message] The Basophils) system which ge nerated this result tra nsmitted reference range : <=1.0. The reference r lv was not used to int erpret this result as normal/abnormal . [facility]stTginoqdVAZRMXYLES0228-52-46 14:38:00 Test Item Value Reference Range Interpretation Comments Monocytes (test code = Monocytes) 5.8 2.0-12.0 [facility]stQngzlrnUHHOTGIHQX6933-53-44 14:38:00 Test Item Value Reference Range Interpretation Comments Eosinophils (test code = 1.4 See_Comment [A utomated message] The Eosinophils) system which ge nerated this result tra nsmitted reference range : <=4.0. The reference r lv was not used to int erpret this result as normal/abnormal . [facility]stQngltrdGDODJOGLZE0216-06-66 14:38:00 Test Item Value Reference Range Interpretation Comments Eosinophils # (test code 0.1 See_Comment [A utomated message] The = Eosinophils #) system whic h generated this result tra nsmitted reference range : <=0.5. The reference r lv was not used to int erpret this result as normal/abnormal . [facility]anoWtemsmqHMZHWJWWSK0978-85-38 14:38:00 Test Item Value Reference Range Interpretation Comments HIV 1/2 Ab (test code Negative *NA*(08/03/15 = HIV 1/2 Ab) 9:38 AM) [facility]anoSiptyfbKRUFANJMCB2565-63-78 14:38:00 Test Item Value Reference Range Interpretation Comments Hep C Ab (test code = Negative *NA*(08/03/15 Hep C Ab) 9:38 AM) [facility]2016-06-23 14:38:00 Test Item Value Reference Range Interpretation Comments eGFR (test code = eGFR) 79 [facility]2016-06-23 14:38:00 Test Item Value Reference Range Interpretation Comments Sodium Lvl (test code = Sodium Lvl) 144 135-145 [facility]2016-06-23 14:38:00 Test Item Value Reference Range Interpretation Comments Chloride Lvl (test code = Chloride Lvl) 104 95-109 [facility]2016-06-23 14:38:00 Test Item Value Reference Range Interpretation Comments Potassium Lvl (test code = Potassium 4.6 3.5-5.1 Lvl) [facility]2016-06-23 14:38:00 Test Item Value Reference Range Interpretation Comments Calcium Lvl (test code = Calcium Lvl) 9.4 8.5-10.5 [facility]2016-06-23 14:38:00 Test Item Value Reference Range Interpretation Comments CO2 (test code = CO2) 31 24-32 [facility]2016-06-23 14:38:00 Test Item Value Reference Range Interpretation Comments Glucose Lvl (test code = Glucose Lvl) 126 70-99 [facility]2016-06-23 14:38:00 Test Item Value Reference Range Interpretation Comments Creatinine Lvl (test code = Creatinine 0.84 0.50-1.40 Lvl) [facility]2016-06-23 14:38:00 Test Item Value Reference Range Interpretation Comments BUN (test code = BUN) 17 7-22 [facility]2016-06-23 14:38:00 Test Item Value Reference Range Interpretation Comments AGAP (test code = AGAP) 13.6 10.0-20.0 [facility]stWewpastIDQBTWXOHW8257-58-65 14:38:00 Test Item Value Reference Range Interpretation Comments MCH (test code = MCH) 28.8 pg 27.0-31.0 [facility]stBebjcipWFIVNKXHFC2752-54-50 14:38:00 Test Item Value Reference Range Interpretation Comments Hgb (test code = Hgb) 12.1 12.0-16.0 [facility]stCkrsgtwSXSQZPNDBQ7740-54-49 14:38:00 Test Item Value Reference Range Interpretation Comments RBC (test code = RBC) 4.20 4.20-5.40 [facility]stLeeaokfMVMSFOMRYQ9324-32-07 14:38:00 Test Item Value Reference Range Interpretation Comments MCV (test code = MCV) 89.2 80.0-98.0 [facility]stRqcuiyvEXMXTBKCKF6892-23-60 14:38:00 Test Item Value Reference Range Interpretation Comments Hct (test code = Hct) 37.5 36.0-48.0 [facility]stPafrpckRETIOFIFQL1441-01-07 14:38:00 Test Item Value Reference Range Interpretation Comments WBC (test code = WBC) 7.4 3.7-10.4 [facility]stGxygzxvLLWBAWOGYO6927-35-33 14:38:00 Test Item Value Reference Range Interpretation Comments MCHC (test code = MCHC) 32.3 32.0-36.0 [facility]stDswwoqgNCTCLJGIUE2275-25-16 14:38:00 Test Item Value Reference Range Interpretation Comments RDW (test code = RDW) 14.3 11.5-14.5 [facility]stOamvnvlMAATQPZPSF7045-26-37 14:38:00 Test Item Value Reference Range Interpretation Comments MPV (test code = MPV) 9.3 7.4-10.4 [facility]stEliyhjuUIKIMHIVWP7279-50-06 14:38:00 Test Item Value Reference Range Interpretation Comments Platelet (test code = Platelet) 193 133-450 [facility]stTdvcjbqIPUSZMMTZI7391-22-45 14:38:00 Test Item Value Reference Range Interpretation Comments Basophils # (test code 0.0 See_Comment [Aut omated message] The = Basophils #) system which generated this result tra nsmitted reference range : <=0.2. The reference r lv was not used to int erpret this result as normal/abnormal . [facility]stNlahgpkILUCVKUWXI6531-28-09 14:38:00 Test Item Value Reference Range Interpretation Comments Segs (test code = Segs) 61.4 45.0-75.0 [facility]stJevufpsEYKKFRFJUV6762-18-10 14:38:00 Test Item Value Reference Range Interpretation Comments Lymphocytes (test code = Lymphocytes) 30.9 20.0-40.0 [facility]stNrwmeilBMNVQKQONQ3759-13-73 14:38:00 Test Item Value Reference Range Interpretation Comments Lymphocytes # (test code = Lymphocytes 2.3 1.0-5.5 #) [facility]stWjucnzeXYIKNNKANI4534-35-67 14:38:00 Test Item Value Reference Range Interpretation Comments Monocytes # (test code 0.4 See_Comment [Aut omated message] The = Monocytes #) system which generated this result tra nsmitted reference range : <=0.8. The reference r lv was not used to int erpret this result as normal/abnormal . [facility]stXljjbaaMNUKEOJFVN7932-18-39 14:38:00 Test Item Value Reference Range Interpretation Comments Segs-Bands # (test code = Segs-Bands #) 4.5 1.5-8.1 [facility]stZgdtqvpFZODCLKKBG0281-82-42 14:38:00 Test Item Value Reference Range Interpretation Comments Basophils (test code = 0.5 See_Comment [Aut omated message] The Basophils) system which ge nerated this result tra nsmitted reference range : <=1.0. The reference r lv was not used to int erpret this result as normal/abnormal . [facility]stLvqazniXDRIUUKKOJ3339-79-27 14:38:00 Test Item Value Reference Range Interpretation Comments Monocytes (test code = Monocytes) 5.8 2.0-12.0 [facility]stCmwfjqzLYVHYODDNC4948-42-33 14:38:00 Test Item Value Reference Range Interpretation Comments Eosinophils (test code = 1.4 See_Comment [A utomated message] The Eosinophils) system which ge nerated this result tra nsmitted reference range : <=4.0. The reference r lv was not used to int erpret this result as normal/abnormal . [facility]stMhcvjtdWBTIMELFBC4551-44-34 14:38:00 Test Item Value Reference Range Interpretation Comments Eosinophils # (test code 0.1 See_Comment [A utomated message] The = Eosinophils #) system whic h generated this result tra nsmitted reference range : <=0.5. The reference r lv was not used to int erpret this result as normal/abnormal . [facility]PmrkjnaWIIRREPLNS7975-61-94 14:38:00 Test Item Value Reference Range Interpretation Comments HIV 1/2 Ab (test code Negative *NA*(08/03/15 = HIV 1/2 Ab) 9:38 AM) [facility]GcgjiszNZJIUYHOFY8357-47-83 14:38:00 Test Item Value Reference Range Interpretation Comments Hep C Ab (test code = Negative *NA*(08/03/15 Hep C Ab) 9:38 AM) [facility]2016-06-23 14:38:00 Test Item Value Reference Range Interpretation Comments eGFR (test code = eGFR) 79 [facility]2016-06-23 14:38:00 Test Item Value Reference Range Interpretation Comments Sodium Lvl (test code = Sodium Lvl) 144 135-145 [facility]2016-06-23 14:38:00 Test Item Value Reference Range Interpretation Comments Chloride Lvl (test code = Chloride Lvl) 104 95-109 [facility]2016-06-23 14:38:00 Test Item Value Reference Range Interpretation Comments Potassium Lvl (test code = Potassium 4.6 3.5-5.1 Lvl) [facility]2016-06-23 14:38:00 Test Item Value Reference Range Interpretation Comments Calcium Lvl (test code = Calcium Lvl) 9.4 8.5-10.5 [facility]2016-06-23 14:38:00 Test Item Value Reference Range Interpretation Comments CO2 (test code = CO2) 31 24-32 [facility]2016-06-23 14:38:00 Test Item Value Reference Range Interpretation Comments Glucose Lvl (test code = Glucose Lvl) 126 70-99 [facility]2016-06-23 14:38:00 Test Item Value Reference Range Interpretation Comments Creatinine Lvl (test code = Creatinine 0.84 0.50-1.40 Lvl) [facility]2016-06-23 14:38:00 Test Item Value Reference Range Interpretation Comments BUN (test code = BUN) 17 7-22 [facility]2016-06-23 14:38:00 Test Item Value Reference Range Interpretation Comments AGAP (test code = AGAP) 13.6 10.0-20.0 [facility]stUjyonqyABEMSNQXEJ1212-32-75 14:38:00 Test Item Value Reference Range Interpretation Comments MCH (test code = MCH) 28.8 pg 27.0-31.0 [facility]stQkrovlxEGLEHUTDNL1955-15-46 14:38:00 Test Item Value Reference Range Interpretation Comments Hgb (test code = Hgb) 12.1 12.0-16.0 [facility]stDbzegfgWYMPDHIKMS6991-30-84 14:38:00 Test Item Value Reference Range Interpretation Comments RBC (test code = RBC) 4.20 4.20-5.40 [facility]stOommncbWSUSGZKYOW1083-14-65 14:38:00 Test Item Value Reference Range Interpretation Comments MCV (test code = MCV) 89.2 80.0-98.0 [facility]stQmwmoytRDROWTWTYR3429-36-60 14:38:00 Test Item Value Reference Range Interpretation Comments Hct (test code = Hct) 37.5 36.0-48.0 [facility]stPepcclwKSJFBEULQE3016-62-60 14:38:00 Test Item Value Reference Range Interpretation Comments WBC (test code = WBC) 7.4 3.7-10.4 [facility]stZxhbjhbRINFQCNQMN8004-23-38 14:38:00 Test Item Value Reference Range Interpretation Comments MCHC (test code = MCHC) 32.3 32.0-36.0 [facility]stFzvdnqnPOQQULLIAT6701-99-64 14:38:00 Test Item Value Reference Range Interpretation Comments RDW (test code = RDW) 14.3 11.5-14.5 [facility]stNvbnbsnPJYMXHDRNX4019-64-26 14:38:00 Test Item Value Reference Range Interpretation Comments MPV (test code = MPV) 9.3 7.4-10.4 [facility]stKjjsjqhKDNGTDGSBW1073-65-31 14:38:00 Test Item Value Reference Range Interpretation Comments Platelet (test code = Platelet) 193 133-450 [facility]stDjvdilfOZENAHRJSK9897-54-78 14:38:00 Test Item Value Reference Range Interpretation Comments Basophils # (test code 0.0 See_Comment [Aut omated message] The = Basophils #) system which generated this result tra nsmitted reference range : <=0.2. The reference r lv was not used to int erpret this result as normal/abnormal . [facility]stYpqtdepVTAGMMPPTV9769-26-65 14:38:00 Test Item Value Reference Range Interpretation Comments Segs (test code = Segs) 61.4 45.0-75.0 [facility]stEzacicfAIBGDLPCRJ3900-92-92 14:38:00 Test Item Value Reference Range Interpretation Comments Lymphocytes (test code = Lymphocytes) 30.9 20.0-40.0 [facility] [id number] 14:38:00 Test Item Value Reference Range Interpretation Comments Lymphocytes # (test code = Lymphocytes 2.3 1.0-5.5 #) [id number] 14:38:00 Test Item Value Reference Range Interpretation Comments Monocytes # (test code 0.4 See_Comment [Aut omated message] The = Monocytes #) system which generated this result tra nsmitted reference range : <=0.8. The reference r lv was not used to int erpret this result as normal/abnormal . [facility]2016-06-23 14:38:00 Test Item Value Reference Range Interpretation Comments eGFR (test code = eGFR) 79 [facility]2016-06-23 14:38:00 Test Item Value Reference Range Interpretation Comments Sodium Lvl (test code = Sodium Lvl) 144 135-145 [facility]2016-06-23 14:38:00 Test Item Value Reference Range Interpretation Comments Chloride Lvl (test code = Chloride Lvl) 104 95-109 [facility]2016-06-23 14:38:00 Test Item Value Reference Range Interpretation Comments Potassium Lvl (test code = Potassium 4.6 3.5-5.1 Lvl) [facility]2016-06-23 14:38:00 Test Item Value Reference Range Interpretation Comments Calcium Lvl (test code = Calcium Lvl) 9.4 8.5-10.5 [facility]2016-06-23 14:38:00 Test Item Value Reference Range Interpretation Comments CO2 (test code = CO2) 31 24-32 [facility]2016-06-23 14:38:00 Test Item Value Reference Range Interpretation Comments Glucose Lvl (test code = Glucose Lvl) 126 70-99 [facility]2016-06-23 14:38:00 Test Item Value Reference Range Interpretation Comments Creatinine Lvl (test code = Creatinine 0.84 0.50-1.40 Lvl) [facility]2016-06-23 14:38:00 Test Item Value Reference Range Interpretation Comments BUN (test code = BUN) 17 7-22 [facility]2016-06-23 14:38:00 Test Item Value Reference Range Interpretation Comments AGAP (test code = AGAP) 13.6 10.0-20.0 [facility] H[id number] 14:38:00 Test Item Value Reference Range Interpretation Comments MCH (test code = MCH) 28.8 pg 27.0-31.0 [facility] Hi[id number] 14:38:00 Test Item Value Reference Range Interpretation Comments Hgb (test code = Hgb) 12.1 12.0-16.0 [facility] [id number] 14:38:00 Test Item Value Reference Range Interpretation Comments RBC (test code = RBC) 4.20 4.20-5.40 [facility] Hi[id number] 14:38:00 Test Item Value Reference Range Interpretation Comments MCV (test code = MCV) 89.2 80.0-98.0 [facility] [id number] 14:38:00 Test Item Value Reference Range Interpretation Comments Hct (test code = Hct) 37.5 36.0-48.0 [facility] Hi[id number] 14:38:00 Test Item Value Reference Range Interpretation Comments WBC (test code = WBC) 7.4 3.7-10.4 [facility] Hi[id number] 14:38:00 Test Item Value Reference Range Interpretation Comments MCHC (test code = MCHC) 32.3 32.0-36.0 [facility] Hi[id number] 14:38:00 Test Item Value Reference Range Interpretation Comments RDW (test code = RDW) 14.3 11.5-14.5 [facility] [id number] 14:38:00 Test Item Value Reference Range Interpretation Comments MPV (test code = MPV) 9.3 7.4-10.4 [facility] Hi[id number] 14:38:00 Test Item Value Reference Range Interpretation Comments Platelet (test code = Platelet) 193 133-450 [facility] Hi[id number] 14:38:00 Test Item Value Reference Range Interpretation Comments Basophils # (test code 0.0 See_Comment [Aut omated message] The = Basophils #) system which generated this result tra nsmitted reference range : <=0.2. The reference r lv was not used to int erpret this result as normal/abnormal . [facility] Hi[id number] 14:38:00 Test Item Value Reference Range Interpretation Comments Segs (test code = Segs) 61.4 45.0-75.0 [facility] H[id number] 14:38:00 Test Item Value Reference Range Interpretation Comments Lymphocytes (test code = Lymphocytes) 30.9 20.0-40.0 [facility] [id number] 14:38:00 Test Item Value Reference Range Interpretation Comments Lymphocytes # (test code = Lymphocytes 2.3 1.0-5.5 #) [facility] Hi[id number] 14:38:00 Test Item Value Reference Range Interpretation Comments Monocytes # (test code 0.4 See_Comment [Aut omated message] The = Monocytes #) system which generated this result tra nsmitted reference range : <=0.8. The reference r lv was not used to int erpret this result as normal/abnormal . [place] [id number] 14:38:00 Test Item Value Reference Range Interpretation Comments Segs-Bands # (test code = Segs-Bands #) 4.5 1.5-8.1 [facility] [id number] 14:38:00 Test Item Value Reference Range Interpretation Comments Basophils (test code = 0.5 See_Comment [Aut omated message] The Basophils) system which ge nerated this result tra nsmitted reference range : <=1.0. The reference r lv was not used to int erpret this result as normal/abnormal . [facility] [id number] 14:38:00 Test Item Value Reference Range Interpretation Comments Monocytes (test code = Monocytes) 5.8 2.0-12.0 [facility] H[id number] 14:38:00 Test Item Value Reference Range Interpretation Comments Eosinophils (test code = 1.4 See_Comment [A utomated message] The Eosinophils) system which ge nerated this result tra nsmitted reference range : <=4.0. The reference r lv was not used to int erpret this result as normal/abnormal . [facility] [id number] 14:38:00 Test Item Value Reference Range Interpretation Comments Eosinophils # (test code 0.1 See_Comment [A utomated message] The = Eosinophils #) system whic h generated this result tra nsmitted reference range : <=0.5. The reference r lv was not used to int erpret this result as normal/abnormal . [id number] 14:38:00 Test Item Value Reference Range Interpretation Comments HIV 1/2 Ab (test code Negative *NA*(08/03/15 = HIV 1/2 Ab) 9:38 AM) [id number] 14:38:00 Test Item Value Reference Range Interpretation Comments Hep C Ab (test code = Negative *NA*(08/03/15 Hep C Ab) 9:38 AM) [facility]
[2022-04-25 21:04] LABS: Absolute Lymphocytes (CBC) 2.4 K/uL (0.7-4.9); Hematocrit 34.1 % (36.0-45.0); Lymphocytes % 34.3 % (15.3-44.8); MCV 80.9 fL (80-100); MPV 7.9 fL (7.6-11.3); RBC Red Blood Cell Count 4.22 M/uL (3.86-4.86)
[2022-04-25 21:05] LABS: Protime INR 1.07
[2022-04-25] MEDS ORDERED: FUROSEMIDE 20 MG/ 2ML VIAL ONE (21:07)
--- NOTE | 2022-04-25 21:11 | RAD REPORT ---
EXAM DESCRIPTION: HIPOLITOChest Single View04/25/2022 9:04 pm CLINICAL HISTORY: pedal edema/wt gain COMPARISON: Chest Single View dated 09/30/2019; Chest Single View dated 08/03/2019; Chest Single View dated 03/22/2018; Chest Single View dated 03/14/2018 TECHNIQUE: Portable AP view of the chest. FINDINGS: The lungs are clear. No pneumothorax or effusion. The cardiomediastinal contours are unrem arkable. IMPRESSION: No acute cardiopulmonary process.
[2022-04-25 21:20] LABS: ALT/SGPT 20 U/L (13-56); AST/SGOT 12 U/L (15-37); Alkaline Phosphatase 92 U/L (45-117); BUN Blood Urea Nitrogen 8 mg/dL (7-18); Bicarbonate 29 mEq/L (21-32); Bilirubin Total 0.4 mg/dL (0.2-1.0); Glomerular Filtration Rate 99 ml/min (=/>90); Glucose Level 265 mg/dL (74-106); Magnesium 1.9 mg/dL (1.6-2.4); NT PRO-BNP 77 pg/mL (<125); Potassium 3.7 mEq/L (3.5-5.1); Protein, Total 7.1 g/dL (6.4-8.2); Sodium Level 135 mEq/L (136-145)
[2022-04-25 21:21] LABS: Bilirubin Direct < 0.1 mg/dL (0-0.2)
[2022-04-25] MEDS ORDERED: KETOROLAC 30 MG/ML INJ ONE (21:48)
--- NOTE | 2022-04-25 22:27 | RAD REPORT ---
EXAM DESCRIPTION: US - Extrem Venous W Compress Yoav - 04/25/2022 9:28 pm CLINICAL HISTORY: Pain, swelling COMPARISON: None. TECHNIQUE: Real-time sonographic evaluation of the bilateral lower extremity deep venous systems was performed. FINDINGS: Normal compressibility, flow augmentation, phasic flow and spontaneous flow is identified in both the left and right lower extremity deep venous systems. No intraluminal filling defects seen. IMPRESSION: No evidence of DVT in either lower extremity.
--- NOTE | 2022-04-25 23:00 | ER ---
Nurse's Notes [facility] Name: Bob Armstrong Age: 61 yrs Sex: Female : 1960 Arrival Date: 04/25/2022 Time: 20:07 Bed 13 Private MD: Luciano Travis Diagnosis: Pain in left lower leg;Edema, unspecified;Cellulitis of left lower limb Presentation: 04/25 20:24 Chief complaint: Patient states: C/o bilateral leg swelling for past 2-3 days, reports ll3 weight gain in past week from 217 to 238 lbs. Coronavirus screen: Vaccine status: Patient reports receiving the 1st dose of the Covid vaccine. At this time, the client does not indicate any symptoms associated with coronavirus-19. Ebola Screen: No symptoms or risks identified at this time. Initial Sepsis Screen: Does the patient meet any 2 criteria? No. Patient's initial sepsis screen is negative. Does the patient have a suspected source of infection? No. Patient's initial sepsis screen is negative. Risk Assessment: Do you want to hurt yourself or someone else? Patient reports no desire to harm self or others. Onset of symptoms was April 22, 2022. 20:24 Method Of Arrival: Ambulatory ll3 20:24 Acuity: JERRY 3 ll3 Triage Assessment: 21:25 General: Appears in no apparent distress. uncomfortable, Behavior is appropriate for vc1 age. Pain: Complains of pain in left leg and right leg. 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 - Social history:: Smoking status: Patient denies any tobacco usage or history of. Screenin:25 [facility] ED Fall Risk Assessment (Adult) History of falling in the last 3 months, vc1 including since admission No falls in past 3 months (0 pts) Confusion or Disorientation No (0 pts) Intoxicated or Sedated No (0 pts) Impaired Gait No (0 pts) Mobility Assist Device Used No (0 pt) Altered Elimination No (0 pt) Score/Fall Risk Level 0 - 2 = Low Risk Oriented to surroundings, Maintained a safe environment. Abuse screen: Denies threats or abuse. Nutritional screening: No deficits noted. Tuberculosis screening: No symptoms or risk factors identified. Assessment: 22:46 Reassessment: No changes from previously documented assessment. Patient and/or family vc1 updated on plan of care and expected duration. Pain level reassessed. Patient is alert, oriented x 3, equal unlabored respirations, skin warm/dry/pink. Patient has made 4 trips to the bathroom. Vital Signs: 20:24 BP 137 / 75; Pulse 85; Resp 18; Temp 98.4(O); Pulse Ox 97% on R/A; Weight 107.5 kg; ll3 Height 5 ft. 11 in. (R); Pain 9/10; 21:26 BP 139 / 68; Pulse 76; Resp 20; Pulse Ox 98% ; vc1 22:47 BP 148 / 72; Pulse 68; Resp 18; Pulse Ox 98% on R/A; vc1 20:24 Body Mass Index 33.05 (107.50 kg, 180.34 cm) ll3 20:24 Pain Scale: Adult ll3 ED Course: 20:00 EKG done, by ED staff, reviewed by Christine SEGUNDO. wm 20:07 Patient arrived in ED. mr 20:07 Luciano Travis, is Private Physician. mr 20:23 Christine Angeles FNP-C [facility]. snw 20:23 Fabián Baron MD is Attending Physician. snw 20:26 Triage completed. ll3 20:26 Arm band placed on Patient placed in an exam room, on a stretcher, on pulse oximetry. ll3 20:30 Nhi Moscoso, DANTE is Primary Nurse. vc1 20:58 Inserted saline lock: 20 gauge in right antecubital area, using aseptic technique. vc1 Blood collected. 21:06 XRAY Chest (1 view) In Process Unspecified. EDMS 21:26 Patient has correct armband on for positive identification. Bed in low position. Call vc1 light in reach. Side rails up X2. Client placed on continuous cardiac and pulse oximetry monitoring. NIBP monitoring applied. 21:29 US Extremity Venous W Compression Yoav In Process Unspecified. EDMS 22:59 Luciano Travis DO is Referral Physician. snw Administered Medications: 21:34 Drug: Furosemide IVP 20 mg Route: IVP; Site: right antecubital; vc1 22:46 Follow up: Response: No adverse reaction; Marked relief of symptoms vc1 21:48 Drug: Ketorolac IVP 15 mg Route: IVP; Site: right antecubital; vc1 22:47 Follow up: Response: No adverse reaction; Marked relief of symptoms vc1 Medication: 21:26 VIS not applicable for this client. vc1 Outcome: 23:00 Discharge ordered by MD. ma Signatures: Dispatcher [employer] EDMS Christine Angeles, INFORMATION SECURITY CONSULTANT-C INFORMATION SECURITY CONSULTANT-Csnw Miracle Moyer Wendy wm Loubet, Lynsea, RN RN ll3 Nhi Moscoso, RN RN vc1
--- NOTE | 2022-04-25 23:00 | EDPHYS ---
Physician Documentation [facility] Name: Bob Armstrong Age: 61 yrs Sex: Female : 1960 Arrival Date: 04/25/2022 Time: 20:07 Bed 13 Private MD: [facility] ED Physician Fabián Baron HPI: 04/25 20:53 This 61 yrs old Female presents to ER via Ambulatory with complaints of Ankle Swelling. snw 20:53 Severity of symptoms: At their worst the symptoms were moderate. The patient has not snw experienced similar symptoms in the past. The patient has been recently seen by a physician: the patient's primary care provider, Dr. Travis. Pt c/o bilateral lower ext edema, edema to abdomen, significant weight gain "overnight". 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 - Social history:: Smoking status: Patient denies any tobacco usage or history of. ROS: 20:55 Eyes: Negative for injury, pain, redness, and discharge. snw 20:55 Neck: Negative for injury, pain, and swelling. 20:55 Respiratory: Negative for shortness of breath, cough, wheezing, and pleuritic chest pain. 20:55 Back: Negative for injury and pain, : Negative for injury, bleeding, discharge, and swelling, MS/Extremity: Negative for injury and deformity, Skin: Negative for injury, rash, and discoloration, Neuro: Negative for headache, weakness, numbness, tingling, and seizure, Psych: Negative for depression, anxiety, suicide ideation, homicidal ideation, and hallucinations. 20:55 Constitutional: Positive for malaise. 20:55 ENT: Positive for dry mouth. 20:55 Cardiovascular: Positive for edema. 20:55 Abdomen/GI: Positive for edema and weight gain overnight. Exam: 20:49 Constitutional: This is a well developed, well nourished patient who is awake, alert, snw and in no acute distress. Head/Face: Normocephalic, atraumatic. Eyes: Pupils equal round and reactive to light, extra-ocular motions intact. Lids and lashes normal. Conjunctiva and sclera are non-icteric and not injected. Cornea within normal limits. Periorbital areas with no swelling, redness, or edema. ENT: Nares patent. No nasal discharge, no septal abnormalities noted. Tympanic membranes are normal and external auditory canals are clear. Oropharynx with no redness, swelling, or masses, exudates, or evidence of obstruction, uvula midline. Mucous membranes moist. Neck: Trachea midline, no thyromegaly or masses palpated, and no cervical lymphadenopathy. Supple, full range of motion without nuchal rigidity, or vertebral point tenderness. No Meningismus. Chest/axilla: Normal chest wall appearance and motion. Nontender with no deformity. No lesions are appreciated. Cardiovascular: Regular rate and rhythm with a normal S1 and S2. No gallops, murmurs, or rubs. Normal PMI, no JVD. No pulse deficits. Respiratory: Lungs have equal breath sounds bilaterally, clear to auscultation and percussion. No rales, rhonchi or wheezes noted. No increased work of breathing, no retractions or nasal flaring. 20:49 Cardiovascular: Regular rate and rhythm with a normal S1 and S2. No gallops, murmurs, or rubs. Normal PMI, no JVD. No pulse deficits. + edema to abdomen, bilateral lower extremities, Back: No spinal tenderness. No costovertebral tenderness. Full range of motion. Skin: Warm, dry with normal turgor. Normal color with no rashes, no lesions, and no evidence of cellulitis. Neuro: Awake and alert, GCS 15, oriented to person, place, time, and situation. Cranial nerves II-XII grossly intact. Motor strength 5/5 in all extremities. Sensory grossly intact. Cerebellar exam normal. Normal gait. Psych: Awake, alert, with orientation to person, place and time. Behavior, mood, and affect are within normal limits. 20:49 Abdomen/GI: Inspection: distension, that is moderate, Bowel sounds: normal, Palpation: abdomen is soft and non-tender. 20:49 Musculoskeletal/extremity: Extremities: grossly normal except: noted in the right leg and left leg: swelling, tenderness, mild erythema to left lower ext, ROM: tenderness L>R, Circulation is intact in all extremities. Vital Signs: 20:24 BP 137 / 75; Pulse 85; Resp 18; Temp 98.4(O); Pulse Ox 97% on R/A; Weight 107.5 kg; ll3 Height 5 ft. 11 in. (R); Pain 9/10; 21:26 BP 139 / 68; Pulse 76; Resp 20; Pulse Ox 98% ; vc1 22:47 BP 148 / 72; Pulse 68; Resp 18; Pulse Ox 98% on R/A; vc1 20:24 Body Mass Index 33.05 (107.50 kg, 180.34 cm) ll3 20:24 Pain Scale: Adult ll3 MDM: 20:23 Patient medically screened. snw 20:52 Differential diagnosis: cellulitis, DVT, CHF, Venous congestion from mass. Data snw reviewed: vital signs, nurses notes, lab test result(s), EKG, radiologic studies. I considered the following discharge prescriptions or medication management in the emergency department Medications were administered in the Emergency Department. See MAR. Counseling: I had a detailed discussion with the patient and/or guardian regarding: the historical points, exam findings, and any diagnostic results supporting the discharge/admit diagnosis, the presence of at least one elevated blood pressure reading (>120/80) during this emergency department visit, pt sees Dr. Travis. 22:58 Differential Diagnosis CHF, cellulitis, DVT. Response to treatment: the patient's snw symptoms have mildly improved after treatment. Special discussion: I discussed in detail with the patient the higher chance of wound infection based on his presenting history. 04/25 20:33 Order name: EKG; Complete Time: 20:34 snw 04/25 20:33 Order name: Cardiac monitoring; Complete Time: 20:58 snw 04/25 20:33 Order name: EKG - Nurse/Tech; Complete Time: 20:58 snw 04/25 20:33 Order name: IV Saline Lock; Complete Time: 20:58 snw 04/25 20:33 Order name: Labs collected and sent; Complete Time: 20:58 w 04/25 20:33 Order name: O2 Per Protocol; Complete Time: :58 w 04/25 20:33 Order name: O2 Sat Monitoring; Complete Time: 20:58 w 04/25 20:33 Order name: Basic Metabolic Panel; Complete Time: 21:22 snw 04/25 20:33 Order name: CBC with Diff; Complete Time: 21: snw 04/25 20:33 Order name: LFT's; Complete Time: 21: snw 04/25 20:33 Order name: Magnesium; Complete Time: 21: snw 04/25 20:33 Order name: NT PRO-BNP; Complete Time: 21: snw 04/25 20:33 Order name: PT-INR; Complete Time: 21: snw 04/25 20:33 Order name: Troponin HS; Complete Time: : snw 04/25 20:33 Order name: XRAY Chest (1 view); Complete Time: :w 04/25 20:38 Order name: US Extremity Venous W Compression Yoav; Complete Time: 22:51 snw EC:00 Rate is 76 beats/min. Rhythm is regular. QRS [place] is Normal. [place] interval is normal. QRS snw interval is normal. Clinical impression: NSR w/ Non-specific ST/T Changes. Administered Medications: 21:34 Drug: Furosemide IVP 20 mg Route: IVP; Site: right antecubital; vc1 22:46 Follow up: Response: No adverse reaction; Marked relief of symptoms vc1 21:48 Drug: Ketorolac IVP 15 mg Route: IVP; Site: right antecubital; vc1 22:47 Follow up: Response: No adverse reaction; Marked relief of symptoms vc1 Disposition Summary: 04/25/22 23:00 Discharge Ordered Location: Home snw Condition: Stable snw Diagnosis - Pain in left lower leg snw - Edema, unspecified snw - Cellulitis of left lower limb snw Followup: snw - With: Emergency Department - When: As needed - Reason: Worsening of condition Followup: snw - With: Travis, Luciano, DO - When: 1 - 2 days - Reason: Recheck today's complaints, Continuance of care, Re-evaluation by your physician Forms: - Medication Reconciliation Form snw - Thank You Letter snw - Antibiotic Education snw - Prescription Opioid Use snw Signatures: Dispatcher [employer] Christine Cohen FNP-C OCEAN FISHING GUIDE-Csnw Alyssia Pimentel RN RN ll3 Nhi Moscoso RN RN vc1
[2022-04-25] MEDS ORDERED: CEPHALEXIN 250 MG CAP ONE (23:05)
[2022-04-26 02:02] VITALS: TEMP 98.4
[2022-04-26 02:04] VITALS: O2SAT 98
[2022-04-26 02:05] VITALS: BP 148/72
--- NOTE | 2022-04-26 11:44 | EKG ---
Test Date: 2022-04-25 Test Time: 20:52:30 Sill Worker: MEASUREMENT RESULTS: Intervals: Rate: 76 PA: 186 QRSD: 100 QT: 404 QTc: 454 [place]: P: 58 PA: 186 QRS: 48 T: 41 INTERPRETIVE STATEMENTS: Normal sinus rhythm Low voltage QRS Borderline ECG Compared to ECG 01/08/2022 09:32:23 Low QRS voltage now present Electronically Signed On 04-26-22 11:44:04 CDT by James Tate
== END 2022-04-25 23:19 | disposition home or self-care (01) ==
LOC: ER 20:05
DX: L03.116 Cellulitis of left lower limb (principal); R60.9 Edema, unspecified; E11.9 Type 2 diabetes mellitus without complications; Z88.1 Allergy status to other antibiotic agents; Z88.8 Allergy status to other drugs, medicaments and biological substances
CPT/HCPCS: 93005; 85025; 80048; 36415; 83735; 85610; 80076; 84484; 83880; 71045; 93970; 96375; 96374; 99284; J1940

== ENCOUNTER 2022-05-03 10:47 | Emergency (ER) | payer OTHER ==
--- OUTSIDE RECORDS SUMMARY | 2022-05-03 11:19 | XMS REPORT | Continuity of Care Document ---
:1960 Author Organization [facility] t Address [address] [facility]. [address] [place] [address] Care Team Providers Name Role Phone Luciano Travis Primary Care Physician [phone] Luciano Travis Attending Clinician Unavailable ANDRESSA PUCKETT Attending Clinician Unavailable SHEFALI HOOPER Attending Clinician Unavailable ABRIL JOHNSON Attending Clinician Unavailable Cristofer ANN, Tuyet Robin Attending Clinician Aba Estrada MD Attending Clinician [phone] Brody Hinds MD Attending Clinician BRODY HINDS Attending Clinician Unavailable Doctor Unassigned, [place] Attending Clinician Unavailable Jordy HOWELL, Ct Attending [...] Attending Clinician Rena Main Attending Clinician SHEFALI HOOPRE NP Attending Clinician Unavailable LAVERN HUFFMAN Attending Clinician Unavailable Julio C Rutherford Attending Clinician ANDRESSA PUCKETT M.D. Attending Clinician Unavailable Andressa Puckett Attending Clinician TUYET CLEVELAND Admitting Clinician Unavailable CHLOE MINOR Admitting Clinician Unavailable Payers Payer Name Policy Type Policy Number Effective Date Expiration Date S gaby [facility] [id number] 2020 00:00:00 [employer] MEDICARE [id number] 2020 00:00:00 [facility] [id number] 2021 [facility] ADVANTAGE 00:00:00 - [facility] [id number] 2013 2020 00:00:00 00:00:00 Problems Condition Condition Condition Status Onset Resolution Last Treating Co mments Source Name Details Category Date Date Treatment Clinician Date Urinary Urinary Disease Active 2020-02 UT frequency frequency 0-15 Heal th 00:00: 00 Urge Urge Disease Active 2020-02 UT incontinen incontinen 0-15 He alth ce ce 00:00: 00 Urinary Urinary Disease Active 2020-02 UT urgency urgency 0-15 Health 00:00: 00 Visual Visual Disease Active 2021-0 Methodi disturbanc disturbanc 3-25 [facility] e of one e of one 00:00: Hospit a eye eye 00 l H92.01 - H92.01 - Diagnosis Active 2019-022019-11-25 Memoria "OTALGIA, "OTALGIA, 0-01 12:00:00 l RIGHT EAR" RIGHT EAR" 00:01: He naomi Active 00 11/11/2019 NISHA Afton Troponin I Troponin I Disease Active U [...] 12:48:00 l Active 00:00: Amador 04/01/2016 00 [place] STRESS STRESS Diagnosis Active 2015-08-10 Me moria URINARY URINARY 4-14 07:24:00 l INCONTINEN INCONTINEN 00:00: Mikel salgado CE-N39.3 / CE-N39.3 / 00 URET URET Active 05/25/2015 [place] R31.2 - R31.2 - Diagnosis Active 2015-06-06 Memoria OTHER OTHER 3-14 16:22:00 l MICROSCOPI MICROSCOPI 00:01: Mikel Pineda C 00 HEMATURIA HEMATURIA Active 04/24/2015 Chrystal English OPID [place] 727.00 - 727.00 - Diagnosis Active 2011-09-02 Memoria SYNOVITIS SYNOVITIS 08-29 08:58:00 l NOS NOS Active 00:01: Randy iqbal 08/30/2011 00 N[facility] History of History of Problem Resolve UT [...] Problem Active UT HL7.CCDAR2 Physic i ans Anxiety Anxiety Problem Resolve 2019-11-26 M emoria (finding) (finding) d 23:02:23 l Resolved [place] Problem 11/26/2019 NISHA Keenan,M [place] Depressive Problem Resolve 2019-11-26 Memoria disorder Depressive d 23:02:23 l (disorder) disorder Herm archana (disorder) Resolved Problem 11/26/2019 NISHA Keenan,[facility] [place] Diabetes Diabetes Problem Resolve 2019-11-26 Memoria mellitus mellitus d 23:02:23 l (disorder) (disorder) He rmann Resolved Problem 11/26/2019 NISHA Keenan,M [place] Chronic Chronic Problem Active UT cystitis cystitis HL7.CCDAR2 Ph ysici ans Endometrio Problem Resolve 2019-11-26 Memoria sis Endometrio d 23:02:23 l (disorder) sis Randy n (disorder) Resolved Problem 11/26/2019 NISHA Keenan,[facility] [place] Fibromyosi Fibromyos Problem Resolve 2019-11-26 Memoria tis itis d 23:02:23 l (disorder) (disorder) He rmann Resolved Problem 11/26/2019 Tomasa Farrar [place] Lumbar Lumbar Problem Resolve 2019-11-26 Mem oria spondylosi spondylosi d 23:02:23 l s s Amador (disorder) (disorder) Resolved Problem 11/26/2019 Tomasa Farrar [place] Motion Motion Problem Resolve 2019-11-26 Mem oria sickness sickness d 23:02:23 l (disorder) (disorder) He rmann Resolved Problem 11/26/2019 Tomasa Farrar [place] Neuropathy Neuropath Problem Resolve 2019-11-26 Memoria (disorder) y d 23:02:23 l (disorder) Randy n Resolved Problem 11/26/2019 Tomasa Farrar [place] Sleep Sleep Problem Resolve 2019-11-26 Alonzo summer apnea apnea d 23:02:23 l (finding) (finding) Herm archana Resolved Problem 11/26/2019 Tomasa Farrar [place] Recent Recent Problem Active UT urinary urinary [...] Problem Active UT HL7.CCDAR2 Physic i ans Restless Restless Problem Commo n legs leg Spirit syndrome syndrome - [facility] Fibromyalg Fibromyalg Problem C ommon ia ia [facility] Type II Diabetes Problem Common diabetes type 2, Spirit mellitus controlled - CH I well [facility] Morbid Morbid Problem Common obesity obesity [facility] [id number] Body mass Problem Com mon index Spirit [BMI] - [facility] 32.0-32.9, [facility] [id number] Other Problem Common obesity Spirit due to - [facility] excess [facility] Diabetic Diabetic Problem Commo n neuropathy neuropathy Sp marco antonio - [facility] Fatty Fatty Problem Common liver liver [facility] Insomnia Insomnia Problem Commo n Spirit [facility] [id number] Incontinen Problem Com mon ce of Spirit feces, - [facility]I unspecifie [facility] fecal [facility] incontinen Medica l ce type Center [id number] Psoriatic Problem Com mon arthritis [facility] Bipolar Bipolar Problem Common disorder disorder [facility] [id number] GERD Problem Common without Spirit esophagiti - [facility] s [facility] 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 Spirit sleep sleep - CHI disorder disorder, St of 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 [facility] work [facility] Ankylosing Ankylosing Problem C ommon spondyliti spondyliti Sp marco antonio s s of - CHI multiple St sites in [facility] spine [facility] [id number] Macular Problem Comm on hole of Spirit left eye [facility] Mixed Hyperlipid Problem Commo n hyperlipid emia, Spirit emia mixed [facility] Iron Iron Problem Common deficiency deficiency Sp marco antonio anemia due anemia due - CHI to chronic to chronic St blood loss blood loss [facility] Obstructiv Obstructiv Problem C ommon e sleep e sleep Spirit apnea apnea [facility] Overactive Overactive Problem C ommon bladder bladder [facility] [id number] Chronic Problem Common obstructiv [facility] e - [facility]I [facility] Medica l d COPD Center type [id number] Primary Problem Commo n osteoarthr Spirit itis of - [facility]I both knees [facility] [id number] Urinary Problem Commo n incontinen Spirit ce, - [facility] unspecifie [facility] [id number] Altered Problem Commo n mental Spirit status, - [facility] unspecifie [facility] altered [facility] mental Medical status Center type [id number] 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 - [facility] 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 [facility] [id number] Decreased Problem Com mon vision of Spirit left eye [facility] Essential Benign Problem Common hypertensi essential Spi rit on HTN [facility] [id number] Daytime Problem Comm on 00 somnolence Spirit [facility] Vitamin D Vitamin D Problem Com mon deficiency deficiency Sp marco an[place] - [facility] Rheumatoid Rheumatoid Problem C ommon arthritis arthritis Spir it - [facility] [id number] Type 2 Problem Common diabetes Spirit mellitus - [facility] with [facility] kidney Center disease [id number] Type 2 Problem Common diabetes Spirit mellitus - [facility] with [facility] [id number] Memory Problem Common change Spirit [facility] [id number] History of Problem Co mmon suicidal Spirit ideation - [facility] History of Past Illness Condition Condition Condition Status Onset Resolution Last Treating Co mments Source Name Details Category Date Date Treatment Clinician Date Discharge Discharge Problem 2016-04-04 2016-04-04 Memoria Diagnosis: Diagnosis: - 04:32:29 04:32:29 l Pain and Pain and 06:00: Randy n swelling swelling 00 of right of right knee knee 04/01/2016 04/04/2016 [place] Allergies, Adverse Reactions, Alerts Allergy Allergy Status [...] Active Diarrhea 2016- Unive rs ty to 07-21 ity of adverse 00:00: [place] reaction 00 Medical s Branch Pregabal Propensi Active Swelling Univ ers in ty to 07-21 ity [...] pregabal Active Unknown Commo n in in [facility] canaglif canaglif Active Unknown Commo n lozin lozin [facility] Methylpr Methylpr Active Unknown Commo n ciera vang [facility] glimepir glimepir Active Unknown Commo n timothy timothy [facility] [id number] Drug Active Unknown Common allergy [facility] Lyrica Lyrica Active Memoria l [place] Latex Latex Active Memoria l [place] Adhesive Adhesive Active Memori a l [place] [...] Phys icians diabetes mellitus Natural father Stroke [facility] Natural mother Lung cancer [facility] Social History Social Habit Start Date Stop Date Quantity Comments Source History of [facility] - Tobacco Use [facility] Alcohol intake 2022-01-25 2022-01-25 Ex-drinker [facility] 00:00:00 00:00:00 ([facility] Alcohol Comment 2022-01-24 2022-01-24 rarely [facility] 00:00:00 00:00:00 Hospital Exposure to 2021-10-10 2021-10-20 Not sure [facility] SARS-CoV-2 00:00:00 15:53:00 (event) Tobacco use and 2020-06-22 2020-06-22 Smokeless tobacco [facility] exposure 00:00:00 00:00:00 non-user Hospital Social History 2015-08-03 2015-08-03 [facility] 14:18:54 14:18:54 Sex Assigned At [birth year] [facility] 00:00:00 00:00:00 Hospital Smoking Status Start Date Stop Date Source Never smoked tobacco [facility] Medications Ordered Filled Start Stop Current Ordering Indication Dosage Frequency Signature Comments Components Source Medication Medication Date Date Medication? Clinician (SIG) Name Name Promethazin Promethazin 2022- No 10{ml_a TID Promethazi e HCl 6.25 e HCl 6.25 02-18 s_neede ne HCl MG/5ML MG/5ML 00:00: 00:00 d} 6.25 00 :00 MG/5ML predniSONE predniSONE 2021-02- No QD predniSONE 20 MG 20 MG 230 - 20 MG 00:00: 00:00 00 :00 predniSONE [...] l tablet day. PILOCARPINE 2021-02 Yes 7.5mg Q.[id number] Take 7.5 [facility] HCL ORAL 2-[id number] 03:06: 3D mouth 3 [...] 07 l lithium 300 2021-02 Yes 300mg Q.[id number] Take 300 [facility] MG capsule 2-[id number] 03:06: 3D mouth 3 [...] 30 (thirty) days. insulin 2021-02 Yes 22U Q.[id number] Inject 22 [facility] lispro 2-[id number] (HUMALOG 03:06: 3D under the [...] l tablet day. PILOCARPINE 2021-02 Yes 7.5mg Q.[id number] Take 7.5 [facility] HCL ORAL 2-[id number] 03:06: 3D mouth 3 [...] 07 l lithium 300 2021-02 Yes 300mg Q.[id number] Take 300 [facility] MG capsule 2-[id number] 03:06: 3D mouth 3 [...] 30 (thirty) days. insulin 2021-02 Yes 22U Q.[id number] Inject 22 [facility] lispro 2-[id number] (HUMALOG 03:06: 3D under the [...] l tablet day. PILOCARPINE 2021-02 Yes 7.5mg Q.[id number] Take 7.5 [facility] HCL ORAL 2-[id number] 03:06: 3D mouth 3 [...] 07 l lithium 300 2021-02 Yes 300mg Q.[id number] Take 300 [facility]i MG capsule 2-[id number] 03:06: 3D mouth 3 [...] 30 (thirty) days. insulin 2021-02 Yes 22U Q.[id number] Inject 22 [facility] lispro 2-[id number] (HUMALOG 03:06: 3D under the [...] l tablet day. PILOCARPINE 2021-02 Yes 7.5mg Q.[id number] Take 7.5 [facility] HCL ORAL 2-[id number] 03:06: 3D mouth 3 [...] 07 l lithium 300 2021-02 Yes 300mg Q.[id number] Take 300 [facility] MG capsule 2-[id number] 03:06: 3D mouth 3 [...] 30 (thirty) days. insulin 2021-02 Yes 22U Q.[id number] Inject 22 [facility] lispro 2-[id number] (HUMALOG 03:06: 3D under the [...] l tablet day. PILOCARPINE 2021-02 Yes 7.5mg Q.[id number] Take 7.5 [facility] HCL ORAL 2-[id number] 03:06: 3D mouth 3 [...] Yes 81mg QD Take 81 mg Meth gewn (ECOTRIN) 2-[address] 81 MG 03:06: daily. Hospita enteric 07 l coated tablet celecoxib 2021-02 Yes 200mg Q.5D Take 200 Met [facility] (CeleBREX) 2-[address] 200 MG 03:06: mouth 2 Hospita capsule 07 (two) l times a day. ALPRAZolam 2021-02 Yes .5mg Q.5D Take 0.5 Met hodi (NIRAVAM) 2-[address] 0.5 MG 03:06: mouth 2 Hospita disintegrat 07 (two) l ing tablet times a day as needed for anxiety. hydroxychlo 2021-02 Yes Q.5D Take by Met hodi roquine 2-[address] (PLAQUENIL) 03:06: (two) Hospi ta 200 mg 07 times a l tablet day. PILOCARPINE 2021-02 Yes 7.5mg Q.[id number] Take 7.5 Methodi HCL ORAL 2-[id number] 03:06: 3D mouth 3 [...] mg 03:06: nightly. Hospita tablet 07 l cycloSPORIN 2021-02 Yes 1[drp] Q.5D Administer Methodi E 2-[address] (RESTASIS) 03:06: both eyes Ho spita 0.05 % 07 2 (two) l ophthalmic times a emulsion day. lithium 300 2021-02 Yes 300mg Q.[id number] Take 300 Methodi MG capsule 2-[id number] 03:06: 3D mouth 3 [...] 30 (thirty) days. insulin 2021-02 Yes 22U Q.[id number] Inject 22 [facility] lispro 2-[id number] (HUMALOG 03:06: 3D under the [...] 100 unit/mL (3 mL) subcutaneou s pen doxepin 2021-02 Yes 10mg QD Take 10 [...] 07 l lithium 300 2021-02 Yes 300mg Q.[id number] Take 300 Methodi MG capsule 2-[id number] 03:06: 3D mouth 3 [...] 30 (thirty) days. insulin 2021-02 Yes 22U Q.[id number] Inject 22 [facility]i lispro 2-[id number] (HUMALOG 03:06: 3D under the [...] l tablet day. PILOCARPINE 2021-02 Yes 7.5mg Q.[id number] Take 7.5 [facility] HCL ORAL 2-[id number] 03:06: 3D mouth 3 [...] 07 l lithium 300 2021-02 Yes 300mg Q.[id number] Take 300 Methodi MG capsule 2-[id number] 03:06: 3D mouth 3 [...] 30 (thirty) days. insulin 2021-02 Yes 22U Q.[id number] Inject 22 [facility]i lispro 2-[id number] (HUMALOG 03:06: 3D under the [...] Yes 1{tbl} QD Take 1 UT hydroCHLORO -14 tablet by [facility] thiazide 14:07: mouth 1 20-12.5 MG 53 [...] 14:04: capsule 54 sulfamethox 2022-0 2021- No [id number] 1{tbl} Q.5D Take 1 UT azole-trime -11-01 tablet by He alth thoprim 00:00: 04:59 mouth in (Bactrim 00 :00 the DS) 800-160 morning MG tablet and 1 tablet in the evening. Do all this for 7 days. sulfamethox 2022-0 2021- No [id number] 1{tbl} Q.5D Take 1 UT azole-trime -11-01 tablet by He alth thoprim 00:00: 04:59 mouth in (Bactrim 00 :00 the DS) 800-160 morning MG tablet and 1 tablet in the evening. Do all this for 7 days. gabapentin 2022-0 Yes 1200mg Take 1,200 Univers 600 mg 8-31 mg by ity of tablet 13:32: mouth in [address] and 1,200 mg in the evening. gabapentin 2022-0 Yes 1200mg Take 1,200 Univers 600 mg 8-31 mg by ity of tablet 13:32: mouth in [address] and 1,200 mg in the evening. gabapentin 2022-0 Yes 1200mg Take 1,200 Univers 600 mg 8-31 mg by ity of tablet 13:32: mouth in [place] 18 the Medical morning Branch and 1,200 mg in the evening. prednisoLON 2021-2021- No 1[drp] 1 Drop U nivers E acetate 1 10-10 every 2 ity of % 13:30: 00:00 (two) [place] ophthalmic 41 :00 hours as Medic al suspension needed for Bra nch drops Itching. prednisoLON 2021-2021- No 1[drp] 1 Drop U nivers E acetate 1 10-10 every 2 ity of % 13:30: 00:00 (two) [place] ophthalmic 41 :00 hours as Medic al suspension needed for Bra nch drops Itching. pilocarpine 2021- No 7.5mg Take 7.5 Univers 7.5 mg 10-10 mg by ity of tablet 13:30: 00:00 mouth 3 [place] 38 :00 (three) Medical times Branch daily. pilocarpine 2021-2021- No 7.5mg Take 7.5 Univers 7.5 mg 10-10 mg by ity of tablet 13:30: 00:00 mouth 3 [place] 38 :00 (three) Medical times Branch daily. Milnacipran 2021-2021- No 50mg Take 50 mg Univers (SAVELLA) 10-10 by mouth ity o f 50 mg 13:30: 00:00 at [place] tablet 29 :00 bedtime. Medical Branch Milnacipran 2021-0 2021- No 50mg Take 50 mg Univers (SAVELLA) 10-10 by mouth ity o f 50 mg 13:30: 00:00 at [place] tablet 29 :00 bedtime. Medical Branch suvorexant 2021-0 2021- No 20mg Take 20 mg Univers (BELSOMRA) 10-10 by mouth ity of 20 mg Tab 13:30: 00:00 at [place] 19 :00 bedtime. Medical Branch suvorexant 2021-0 2021- No 20mg Take 20 mg Univers (BELSOMRA) 10-10 by mouth ity of 20 mg Tab 13:30: 00:00 at [place] 19 :00 bedtime. Medical Branch simvastatin 2021-0 2021- No 40mg Take 40 mg Univers 40 mg 10-10 by mouth ity of tablet 13:30: 00:00 at [place] 04 :00 bedtime. Medical Branch simvastatin 2021- No 40mg Take 40 mg Univers 40 mg 10-10 by mouth ity of tablet 13:30: 00:00 at [place] 04 :00 bedtime. Medical Branch insulin 2021- No 160U inject 160 Uni vers glargine 10-10 Units ity of U-300 conc 13:: 00:00 under the [place] (TOUJEO 49 :00 skin. Medical SOLOSTAR Branch U-300 INSULIN) 300 unit/mL (1.5 mL) InPn insulin 2021- No 160U inject 160 Uni vers glargine 10-10 Units ity of U-300 conc 13:: :00 under the [place] (TOUJEO 49 :00 skin. Medical SOLOSTAR Branch U-300 INSULIN) 300 unit/mL (1.5 mL) InPn traZODONE 2021- No 100mg Take Univer s 100 mg 10-10 100-200 mg ity of tablet 13:: :00 by mouth [place] 30 :00 at bedtime Medical as needed Branch for Insomnia. traZODONE 2021-2021- No 100mg Take Univer s 100 mg 10-10 100-200 mg ity of tablet 13:: 00:00 by mouth [place] 30 :00 at bedtime Medical as needed Branch for Insomnia. SERTraline 2021- No 50mg Take 50 mg Univers 50 mg 10-10 by mouth. ity of tablet 13:: 00:00 [place] 05 :00 Medical Branch SERTraline 2021-2021- No 50mg Take 50 mg Univers 50 mg 10-10 by mouth. ity of tablet 13:: 00:00 [place] 05 :00 Medical Branch lithium 2021-2021- No 300mg Take 300 Univ ers carbonate 10-10 08-31 mg by ity of 300 mg 13:28: 00:00 mouth. [place] capsule 53 :00 Medical Branch lithium 2021-0 2- No 300mg Take 300 Univ ers carbonate 10-10 08-31 mg by ity of 300 mg 13:28: 00:00 mouth. [place] capsule 53 :00 Medical Branch hydroxychlo 2021-0 2021- No 200mg Take [...] by mouth ity of 13:28: 00:00 daily. [place] 25 :00 [facility] Branch foLIC acid 2021-2021- No 2mg Take 2 mg U nivers 1 mg tablet 10-10 by mouth ity of 13:28: 00:00 daily. [place] 25 :00 [facility] Branch exenatide 2021-2021- No 2mg inject 2 Uni vers microsphere 10-10- mg under ity of s 2 mg/0.65 13:27: 00:00 the skin. [facility] 56 :00 Medical injection Branch exenatide 2021-2021- No 2mg inject 2 Uni vers microsphere 10-10-31 mg under ity of s 2 mg/0.65 13:27: 00:00 the skin. [facility] 56 :00 Medical injection Branch doxepin 10 2021- No 10mg Take 10 mg Univers mg capsule 10-10 by mouth. ity of 13:27: 00:00 [place] 38 :00 [facility] Branch doxepin 10 2021- No 10mg Take 10 mg Univers mg capsule 10-10 by mouth. ity of 13:27: 00:00 [place] 38 :00 Medical Branch cycloSPORIN 2021-2021- No 1[drp] Place 1 Univers E 10-10 Drop in ity of (RESTASIS) 13:27: 00:00 both eyes [place] 0.05 % 35 :00 every 12 Medical drops (twelve) Branch hours. cycloSPORIN 2021-0 2021- No 1[drp] Place 1 Univers E 8-31 08-31 Drop in ity of (RESTASIS) 13:27: 00:00 both eyes [place] 0.05 % 35 :00 every 12 Medical drops (twelve) Branch hours. cyclobenzap 2021-2021- No 10mg Take 10 mg Univers rine 10 mg 8-10 10-31 by mouth 3 it y of tablet 13:27: 00:00 (three) [place] 32 :00 times Medical daily. Branch cyclobenzap 2021- No 10mg Take 10 mg Univers rine 10 mg 8- by mouth 3 it y of tablet 13:27: 00:00 (three) [place] 32 :00 times Medical daily. Branch celecoxib 2021-2021- No 200mg Take 200 Un emanuel (CELEBREX) 8- 08-31 mg by ity of 200 mg 13:27: 00:00 mouth 2 [place] capsule 25 :00 (two) Medical times Branch daily. celecoxib 2021-2021- No 200mg Take 200 Un emanuel (CELEBREX) 8- 08-31 mg by ity of 200 mg 13:27: 00:00 mouth 2 [place] capsule 25 :00 (two) Medical times Branch daily. aspirin 81 2021-0 2021- No 81mg Take 81 mg Univers mg chewable 10-10- by mouth ity of tablet 13:27: 00:00 daily. [place] 22 :00 Medical Branch aspirin 81 2021-0 2021- No 81mg Take 81 mg Univers mg chewable 10-10 08-31 by mouth ity of tablet 13:27: 00:00 daily. [place] 22 :00 Medical Branch Armodafinil 2021-0 2021- No 250mg Take 250 Univers (NUVIGIL) 8- 08-31 mg by ity of 250 mg Tab 13:27: 00:00 mouth [place] 19 :00 daily. Medical Branch Armodafinil 2021-0 2021- No 250mg Take 250 Univers (NUVIGIL) 8- 08-31 mg by ity of 250 mg Tab 13:27: 00:00 mouth [place] 19 :00 daily. Medical Branch ARIPiprazol 2021-0 2021- No 20mg Take 20 mg Univers e (ABILIFY) 8- 08-31 by mouth ity of 20 mg 13:27: 00:00 at [place] tablet 16 :00 bedtime. Medical Branch ARIPiprazol 2021-0 202- No 20mg Take 20 mg Univers e [...] us MG/1.5ML solution pen-injecto r semaglutide Yes [id number] Take U nivers (OZEMPIC) 10-10 0.25mg ity of 0.25 mg or 00:00: weekly for [place] 0.5 mg(2 00 two weeks, Medic al mg/1.5 mL) then Branch PnIj increase to 0.5mg weekly if tolerate insulin Yes [id number] 30U inject Uni vers degludec 10-10 30-40 ity of (TRESIBA 00:00: Units [place] FLEXTOUCH 00 under the Medic al U-200) 200 skin every Bra nch unit/mL (3 morning. mL) InPn E11.65 flash 0 Yes [id number] 1{kit} 1 Kit Univ ers glucose 10-10 every 14 ity of sensor 00:00: (fourteen) [place] (FREESTYLE 00 days. Medical TERRI 2 E11.65 Branch SENSOR) Kit Insulin Yes [id number] Use as Uni vers Gabbs, 10-10 directed ity of Disposable, 00:00: once daily [place] (BD LOUIE 00 E11.65 Medical 2ND GEN PEN Branch NEEDLE) 32 gauge x 5/32" Ndle semaglutide Yes [id number] Take U nivers (OZEMPIC) 8- 0.25mg ity of 0.25 mg or 00:00: weekly for [place] 0.5 mg(2 00 two weeks, Medic al mg/1.5 mL) then Branch PnIj increase to 0.5mg weekly if tolerate insulin Yes [id number] 30U inject Uni vers degludec 8 30-40 ity of (TRESIBA 00:00: Units [place] FLEXTOUCH 00 under the Medic al U-200) 200 skin every Bra nch unit/mL (3 morning. mL) InPn E11.65 flash Yes [id number] 1{kit} 1 Kit Univ ers glucose - every 14 ity of sensor 00:00: (fourteen) [place] (FREESTYLE 00 days. Medical TERRI 2 E11.65 Branch SENSOR) Kit Insulin Yes [id number] Use as Uni vers Gabbs, 10-10 directed ity of Disposable, 00:00: once daily [place] (BD LOUIE E11.65 Medical 2ND GEN PEN Branch NEEDLE) 32 gauge x 5/32" Ndle semaglutide Yes [id number] Take U nivers (OZEMPIC) 8- 0.25mg ity of 0.25 mg or 00:00: weekly for [place] 0.5 mg(2 00 two weeks, Medic al mg/1.5 mL) then Branch PnIj increase to 0.5mg weekly if tolerate insulin Yes [id number] 30U inject Uni vers degludec 10-10 30-40 ity of (TRESIBA 00:00: Units [place] FLEXTOUCH 00 under the Medic al U-200) 200 skin every Bra nch unit/mL (3 morning. mL) InPn E11.65 flash Yes [id number] 1{kit} 1 Kit Univ ers glucose 8-31 every 14 ity of sensor 00:00: (fourteen) [place] (FREESTYLE 00 days. Medical TERRI 2 E11.65 Branch SENSOR) Kit Insulin Yes [id number] Use as Uni vers Gabbs, 8- directed ity of Disposable, 00:00: once daily [place] (BD LOUIE 00 E11.65 Medical 2ND GEN PEN Branch NEEDLE) 32 gauge x 5/32" Ndle flash 2021- No [id number] 1{kit} 1 Kit Uni vers glucose 10-10 every 14 ity of sensor 00:00: 00:00 (fourteen) [place] (FREESTYLE 00 :00 days. Medical TERRI 2 E11.65 Branch SENSOR) Kit flash 2021- No [id number] 1{kit} 1 Kit Uni vers glucose 10-10 every 14 ity of sensor 00:00: 00:00 ([place]teen[place] (FREEST[place] 00 :00 days. Medical TERRI 2 E11.65 Branch SENSOR) Kit traMADol traMADol 2021- No 1{table QD traMADol HCl 50 MG HCl 50 MG 04-03 t_as_ne HCl 50 MG 00:00: 00:00 eded} 00 :00 sulfamethox 2021-0 Yes [id number] 1{tbl} Take 1 Univers azole-trime 2-14 tablet by ity of thoprim 00:00: mouth [place] 800-160 mg 00 every 12 Medic al per tablet (twelve) Branc h hours. doxycycline 2021-0 Yes [id number] 100mg Take 1 [facility] hyclate 100 2-14 capsule by it y [place] mg capsule 00:00: [place] ([place] Medical times Branch daily. sulfamethox 2021-0 Yes [id number] 1{tbl} Take 1 [facility] azole-trime 2-14 tablet by ity of thoprim 00:00: mouth [place] 800-160 mg 00 every 12 Medic al per tablet (twelve) Branc h hours. doxycycline 2021-0 Yes [id number] 100mg Take 1 [facility] hyclate 100 2-14 capsule by it y of mg capsule 00:00: [place] (two) Medical times Branch daily. sulfamethox 2022-0 Yes [id number] 1{tbl} Take 1 [facility] azole-trime 2-14 tablet by ity of thoprim 00:00: mouth [place] 800-160 mg 00 every 12 Medic al per tablet (twelve) Branc h hours. doxycycline 2-0 Yes [id number] 100mg Take 1 [facility] hyclate 100 2-14 capsule by it y of mg capsule 00:00: [place] (two) Medical times Branch daily. sulfamethox 2021- No [id number] 1{tbl} Take 1 [facility] azole-trime 2-14 -31 tablet by it y of thoprim 00:00: 00:00 mouth [place] 800-160 mg 00 :00 every 12 Medic al per tablet (twelve) Branc h hours. doxycycline 2021- No [id number] 100mg Take 1 [facility] hyclate 100 -14 -31 capsule by i ty of mg capsule 00:00: 00:00 mouth 2 [place] as 00 :00 (two) Medical times Branch daily. sulfamethox 2021- No [id number] 1{tbl} Take 1 [facility] azole-trime 2-14 - tablet by it y of thoprim 00:00: 00:00 mouth [place] 800-160 mg 00 :00 every 12 Medic al per tablet (twelve) Branc h hours. doxycycline 2021- No [id number] 100mg Take 1 [facility] hyclate 100 -14 - capsule by i ty of mg [...] Sun Branch 12/03/20 at 1615, NOEL
Fa replaced by [facility] member approving Restricted medication : CLEOKOSTASGREG Isabella traMADoL 2020-02 Yes [id number] 50mg Take [...] 02 :00 daily. l armodafiniL 2020- No [id number] 250mg QD Take 1 [facility] (NUVIGIL) 5-17 11-[address] 250 mg 00:00: 05:59 (250 mg [facility] tablet 00 :00 total) by l mouth daily for 180 days. armodafiniL 2020- No [id number] 250mg QD Take 1 [facility] (NUVIGIL) 5-17 [...] tablet 00 each day. amitriptyli 2020- No [id number] 50mg QD Take 2 [facility] (ELAVIL) 5-14 11-[address] 25 MG 00:00: 05:59 (50 mg [facility] tablet 00 :00 total) by l mouth nightly for 180 days. amitriptyli 2020- No [id number] 50mg QD Take 2 [facility] (ELAVIL) 5-14 11-[address] 25 MG 00:00: 05:59 (50 mg [facility] tablet 00 :00 total) by l mouth nightly for 180 days. carBAMazepi 2021- No [id number] 200mg Q.5D Take 1 [facility] 5[facility] (TEGretoL) 00:00: 04:59 (200 mg Hos ileana 200 mg 00 :00 total) by l tablet mouth 2 (two) times a day. carBAMazepi 2021- No [id number] 200mg Q.5D Take 1 [facility] (TEGretoL) 00:00: 04:59 (200 mg Hos ileana 200 mg 00 :00 total) by l tablet mouth 2 (two) times a day. carBAMazepi 2021- No [id number] 200mg Q.5D Take 1 [facility] (TEGretoL) 00:00: 04:59 (200 mg Hos ileana 200 mg 00 :00 total) by l tablet mouth 2 (two) times a day. carBAMazepi 2021- No [id number] 200mg Q.5D Take 1 [facility] (TEGretoL) 00:00: 04:59 (200 mg Hos ileana 200 mg 00 :00 total) by l tablet mouth 2 (two) times a day. carBAMazepi 2021- No [id number] 200mg Q.5D Take 1 [facility] (TEGretoL) 00:00: 04:59 (200 mg Hos ileana 200 mg 00 :00 total) by l tablet mouth 2 (two) times a day. carBAMazepi 2021- No [id number] 200mg Q.5D Take 1 [facility] (TEGretoL) 00:00: 04:59 (200 mg Hos ileana 200 mg 00 :00 total) by l tablet mouth 2 (two) times a day. carBAMazepi 2021- No [id number] 200mg Q.5D Take 1 [facility] (TEGretoL) 00:00: 04:59 (200 mg Hos ileana 200 mg 00 :00 total) by l tablet mouth 2 (two) times a day. carBAMazepi 2021- No [id number] 200mg Q.5D Take 1 [facility] (TEGretoL) 00:00: 04:59 (200 mg Hos ileana 200 mg 00 :00 total) by l tablet mouth 2 (two) times a day. carBAMazepi 2021- No [id number] 200mg Q.5D Take 1 [facility] 06-22 [...] mouth ity of 50 mg 20:10: at [place] tablet 56 bedtime. Medical Branch Armodafinil Yes 250mg Take 250 U nivers (NUVIGIL) 5-12 mg by ity of 250 mg Tab 20:09: mouth [place] 27 daily. Medical Branch cycloSPORIN Yes 1[drp] Place 1 U nivers E 5-12 Drop in ity of (RESTASIS) 20:09: both eyes [place] 0.05 % 27 every 12 Medical drops (twelve) Branch hours. aspirin 81 0 Yes 81mg Take 81 mg U nivers mg chewable 5-12 by mouth ity of tablet 20:09: daily. [address] Branch atorvastati Yes 10mg Take 10 mg [facility] n 10 mg 5-12 by mouth. ity of tablet 20:09: [address] doxepin 10 Yes 10mg Take 10 mg U nivers mg capsule 5-12 by mouth. ity of 20:09: [address] insulin Yes 160U inject 160 Univ ers glargine 5-12 Units ity of U-300 conc 20:09: under the [place] ([place]OUJE[place] 27 skin. Medical SOLOSTAR Branch U-300 INSULIN) 300 unit/mL (1.5 mL) InPn lithium Yes 300mg Take 300 Unive rs carbonate 5-12 mg by ity of 300 mg 20:09: mouth. [place] [address] Medical Branch SERTraline Yes 50mg Take 50 mg U nivers 50 mg 5-12 by mouth. ity of tablet 20:09: [address] Branch celecoxib Yes 200mg Take 200 Uni vers (CELEBREX) 5-12 mg by ity of 200 mg 20:09: mouth 2 [place] capsule 27 (two) Medical times Branch daily. hydroxychlo 0 Yes 200mg Take 200 U nivers roquine 200 5-12 mg by ity of mg tablet 20:09: mouth 2 [place] [address] (two) Medical times Branch daily. cyclobenzap Yes 10mg Take 10 mg [facility] rine 10 mg 5-12 by mouth 3 ity of tablet 20:09: (three) [place] [address] times [facility] daily. Branch pilocarpine Yes 7.5mg Take 7.5 U nivers 7.5 mg 5-12 mg by ity of tablet 20:09: mouth 3 [place] [address] (three) Medical times Branch daily. Armodafinil Yes 250mg Take 250 U nivers (NUVIGIL) 5-12 mg by ity of 250 mg Tab 20:09: mouth [place] [address] daily. Medical Branch cycloSPORIN Yes 1[drp] Place 1 U nivers E 5-12 Drop in ity of (RESTASIS) 20:09: both eyes [place] 0.05 % 27 every 12 Medical drops (twelve) Branch hours. aspirin 81 Yes 81mg Take 81 mg U nivers mg chewable 5-12 by mouth ity of tablet 20:09: daily. [address] Branch atorvastati Yes 10mg Take 10 mg [facility] n 10 mg 5-12 by mouth. ity of tablet 20:09: [address] doxepin 10 Yes 10mg Take 10 mg U nivers mg capsule 5-12 by mouth. ity of 20:09: [address] insulin Yes 160U inject 160 Univ ers glargine 5-12 Units ity of U-300 conc 20:09: under the [place] ([place] 27 skin. Medical SOLOSTAR Branch U-300 INSULIN) 300 unit/mL (1.5 mL) InPn lithium Yes 300mg Take 300 Unive rs carbonate 5-12 mg by ity of 300 mg 20:09: mouth. [place] [address] Medical Branch SERTraline Yes 50mg Take 50 mg U nivers 50 mg 5-12 by mouth. ity of tablet 20:09: [address] celecoxib Yes 200mg Take 200 Uni vers (CELEBREX) 5-12 mg by ity of 200 mg 20:09: mouth 2 [place] [address] (two) Medical times Branch daily. hydroxychlo Yes 200mg Take 200 U nivers roquine 200 5-12 mg by ity of mg tablet 20:09: mouth 2 [place] [address] (two) Medical times Branch daily. cyclobenzap Yes 10mg Take 10 mg [facility] rine 10 mg 5-12 by mouth 3 ity of tablet 20:09: (three) [place] [address] times Medical daily. Branch pilocarpine Yes 7.5mg Take 7.5 U nivers 7.5 mg 5-12 mg by ity of tablet 20:09: mouth 3 [place] [address] (three) Medical times Branch daily. Armodafinil Yes 250mg Take 250 U nivers (NUVIGIL) 5-12 mg by ity of 250 mg Tab 20:09: mouth [place] [address] daily. Medical Branch cycloSPORIN Yes 1[drp] Place 1 U nivers E 5-12 Drop in ity of (RESTASIS) 20:09: both eyes [place] 0.05 % 27 every 12 Medical drops (twelve) Branch hours. aspirin 81 0 Yes 81mg Take 81 mg U nivers mg chewable 5-12 by mouth ity of tablet 20:09: daily. [address] Branch atorvastati Yes 10mg Take 10 mg [facility] n 10 mg 5-12 by mouth. ity of tablet 20:09: [address] doxepin 10 Yes 10mg Take 10 mg U nivers mg capsule 5-12 by mouth. ity of 20:09: [address] insulin Yes 160U inject 160 Univ ers glargine 5-12 Units ity of U-300 conc 20:09: under the [place] ([place] 27 skin. Medical SOLOSTAR Branch U-300 INSULIN) 300 unit/mL (1.5 mL) InPn lithium Yes 300mg Take 300 Unive rs carbonate 5-12 mg by ity of 300 mg 20:09: mouth. [place] [address] Medical Branch SERTraline Yes 50mg Take 50 mg U nivers 50 mg 5-12 by mouth. ity of tablet 20:09: [address] celecoxib 0 Yes 200mg Take 200 Uni vers (CELEBREX) 5-12 mg by ity of 200 mg 20:09: mouth 2 [place] [address] (two) Medical times Branch daily. hydroxychlo Yes 200mg Take 200 U nivers roquine 200 5-12 mg by ity of mg tablet 20:09: mouth 2 [place] [address] (two) Medical times Branch daily. cyclobenzap 2021-0 Yes 10mg Take 10 mg [facility] rine 10 mg 5-12 by mouth 3 ity of tablet 20:09: (three) [place] [address] times Medical daily. Branch pilocarpine Yes 7.5mg Take 7.5 U nivers 7.5 mg 5-12 mg by ity of tablet 20:09: mouth 3 [place] [address] (three) Medical times Branch daily. Armodafinil Yes 250mg Take 250 U nivers (NUVIGIL) 5-12 mg by ity of 250 mg Tab 20:09: mouth [place] [address] daily. Medical Branch cycloSPORIN Yes 1[drp] Place 1 U nivers E 5-12 Drop in ity of (RESTASIS) 20:09: both eyes [place] 0.05 % 27 every 12 Medical drops (twelve) Branch hours. aspirin 81 Yes 81mg Take 81 mg U nivers mg chewable 5-12 by mouth ity of tablet 20:09: daily. [address] atorvastati Yes 10mg Take 10 mg Univers n 10 mg 5-12 by mouth. ity of tablet 20:09: [address] doxepin 10 Yes 10mg Take 10 mg U nivers mg capsule 5-12 by mouth. ity of 20:09: [address] insulin Yes 160U inject 160 Univ ers glargine 5-12 Units ity of U-300 conc 20:09: under the [place] ([place] 27 skin. Medical SOLOSTAR Branch U-300 INSULIN) 300 unit/mL (1.5 mL) InPn lithium Yes 300mg Take 300 Unive rs carbonate 5-12 mg by ity of 300 mg 20:09: mouth. [place] [address] Medical Branch SERTraline Yes 50mg Take 50 mg U nivers 50 mg 5-12 by mouth. ity of tablet 20:09: [address] celecoxib Yes 200mg Take 200 Uni vers (CELEBREX) 5-12 mg by ity of 200 mg 20:09: mouth 2 [place] [address] (two) Medical times Branch daily. hydroxychlo Yes 200mg Take 200 U nivers roquine 200 5-12 mg by ity of mg tablet 20:09: mouth 2 [place] [address] (two) Medical times Branch daily. cyclobenzap Yes 10mg Take 10 mg Univers rine 10 mg 5-12 by mouth 3 ity of tablet 20:09: (three) [address] daily. Branch pilocarpine Yes 7.5mg Take 7.5 U nivers 7.5 mg 5-12 mg by ity of tablet 20:09: mouth 3 [place] [address] (three) Medical times [place] daily. Armodafinil Yes 250mg Take 250 U nivers (NUVIGIL) 5-12 mg by ity of 250 mg Tab 20:09: mouth [place] [address] daily. Medical Branch cycloSPORIN Yes 1[drp] Place 1 U nivers E 5-12 Drop in ity of (RESTASIS) 20:09: both eyes [place] 0.05 % 27 every 12 Medical drops (twelve) Branch hours. aspirin 81 Yes 81mg Take 81 mg U nivers mg chewable 5-12 by mouth ity of tablet 20:09: daily. [address] atorvastati Yes 10mg Take 10 mg Univers n 10 mg 5-12 by mouth. ity of tablet 20:09: [address] doxepin 10 Yes 10mg Take 10 mg U nivers mg capsule 5-12 by mouth. ity of 20:09: [address] insulin Yes 160U inject 160 Univ ers glargine 5-12 Units ity of U-300 conc 20:09: under the [place] ([place] 27 skin. Medical SOLOSTAR Branch U-300 INSULIN) 300 unit/mL (1.5 mL) InPn lithium Yes 300mg Take 300 Unive rs carbonate 5-12 mg by ity of 300 mg 20:09: mouth. [place] [address] Medical Branch SERTraline Yes 50mg Take 50 mg U nivers 50 mg 5-12 by mouth. ity of tablet 20:09: [address] celecoxib Yes 200mg Take 200 Uni vers (CELEBREX) 5-12 mg by ity of 200 mg 20:09: mouth 2 [place] [address] (two) Medical times [place] daily. hydroxychlo 2021-0 Yes 200mg Take 200 U nivers roquine 200 5-12 mg by ity of mg tablet 20:09: mouth 2 [place] [address] (two) Medical times Branch daily. cyclobenzap Yes 10mg Take 10 mg Univers rine 10 mg 5-12 by mouth 3 ity of tablet 20:09: (three) [place] [address] times [facility] daily. Branch pilocarpine Yes 7.5mg Take 7.5 U nivers 7.5 mg 5-12 mg by ity of tablet 20:09: mouth 3 [place] [address] (three) Medical times Branch daily. Armodafinil Yes 250mg Take 250 U nivers (NUVIGIL) 5-12 mg by ity of 250 mg Tab 20:09: mouth [place] [address] daily. Medical Branch cycloSPORIN Yes 1[drp] Place 1 U nivers E 5-12 Drop in ity of (RESTASIS) 20:09: both eyes [place] 0.05 % 27 every 12 Medical drops (twelve) Branch hours. aspirin 81 Yes 81mg Take 81 mg U nivers mg chewable 5-12 by mouth ity of tablet 20:09: daily. [address] atorvastati Yes 10mg Take 10 mg Univers n 10 mg 5-12 by mouth. ity of tablet 20:09: [address] doxepin 10 Yes 10mg Take 10 mg U nivers mg capsule 5-12 by mouth. ity of 20:09: [address] insulin Yes 160U inject 160 Univ ers glargine 5-12 Units ity of U-300 conc 20:09: under the [place] ([place] 27 skin. Medical SOLOSTAR Branch U-300 INSULIN) 300 unit/mL (1.5 mL) InPn lithium Yes 300mg Take 300 Unive rs carbonate 5-12 mg by ity of 300 mg 20:09: mouth. [place] [address] Medical Branch SERTraline Yes 50mg Take 50 mg U nivers 50 mg 5-12 by mouth. ity of tablet 20:09: [address] celecoxib Yes 200mg Take 200 Uni vers (CELEBREX) 5-12 mg by ity of 200 mg 20:09: mouth 2 [place] capsule 27 (two) Medical times Branch daily. hydroxychlo 2020-0 Yes 200mg Take 200 U nivers roquine 200 5-12 mg by ity of mg tablet 20:09: mouth 2 [place] 27 (two) Medical times Branch daily. cyclobenzap 2020-0 Yes 10mg Take 10 mg Univers rine 10 mg 5-12 by mouth 3 ity of tablet 20:09: (three) [place] [address] times Medical daily. Branch pilocarpine 2020-0 Yes 7.5mg Take 7.5 U nivers 7.5 mg 5-12 mg by ity of tablet 20:09: mouth 3 [place] (three) Medical times Branch daily. exenatide 2020-0 [...] mouth ity of 50 mg 15:10: at [place] tablet 56 bedtime. Medical Branch Milnacipran 1-0 Yes 50mg Take 50 mg Univers (SAVELLA) 5-12 by mouth ity of 50 mg 15:10: at [place] tablet 56 bedtime. Medical Branch Milnacipran 2020-0 [...] [place] tablet 56 bedtime. Medical Branch celecoxib 2020-0 Yes 200mg Take 200 Uni vers (CELEBREX) 5-12 mg by ity of 200 mg 15:09: mouth 2 [place] capsule 27 (two) Medical times [place] daily. hydroxychlo 2020-0 Yes 200mg Take 200 U nivers roquine 200 5-12 mg by ity of mg tablet 15:09: mouth 2 [place] 27 (two) Medical times [place] daily. cyclobenzap 2020-0 Yes 10mg Take 10 mg Univers rine 10 mg 5-12 by mouth 3 ity of tablet 15:09: (three) [place] 27 times Medical daily. Branch pilocarpine 0 Yes 7.5mg Take 7.5 U nivers 7.5 mg 5-12 mg by ity of tablet 15:09: mouth 3 [place] [address] (three) Medical times Branch daily. Armodafinil 0 Yes 250mg Take 250 U nivers (NUVIGIL) 5-12 mg by ity of 250 mg Tab 15:09: mouth [place] [address] daily. Medical Branch cycloSPORIN 0 Yes 1[drp] Place 1 U nivers E 5-12 Drop in ity of (RESTASIS) 15:09: both eyes [place] 0.05 % 27 every 12 Medical drops (twelve) Branch hours. aspirin 81 0 Yes 81mg Take 81 mg U nivers mg chewable 5-12 by mouth ity of tablet 15:09: daily. [address] atorvastati Yes 10mg Take 10 mg Univers n 10 mg 5-12 by mouth. ity of tablet 15:09: [address] doxepin 10 Yes 10mg Take 10 mg U nivers mg capsule 5-12 by mouth. ity of 15:09: [address] insulin Yes 160U inject 160 Univ ers glargine 5-12 Units ity of U-300 conc 15:09: under the [place] ([place] 27 skin. Medical SOLOSTAR Branch U-300 INSULIN) 300 unit/mL (1.5 mL) InPn lithium Yes 300mg Take 300 Unive rs carbonate 5-12 mg by ity of 300 mg 15:09: mouth. [address] Branch SERTraline Yes 50mg Take 50 mg U nivers 50 mg 5-12 by mouth. ity of tablet 15:09: [address] celecoxib Yes 200mg Take 200 Uni vers (CELEBREX) 5-12 mg by ity of 200 mg 15:09: mouth 2 [place] capsule 27 (two) Medical times Branch daily. hydroxychlo 2020-0 Yes 200mg Take 200 U nivers roquine 200 5-12 mg by ity of mg tablet 15:09: mouth 2 [place] [address] (two) Medical times [place] daily. cyclobenzap Yes 10mg Take 10 mg Univers rine 10 mg 5-12 by mouth 3 ity of tablet 15:09: (three) [place] [address] times Medical daily. Branch pilocarpine Yes 7.5mg Take 7.5 U nivers 7.5 mg 5-12 mg by ity of tablet 15:09: mouth 3 [place] [address] (three) Medical times Branch daily. Armodafinil Yes 250mg Take 250 U nivers (NUVIGIL) 5-12 mg by ity of 250 mg Tab 15:09: mouth [place] [address] daily. Medical Branch cycloSPORIN Yes 1[drp] Place 1 U nivers E 5-12 Drop in ity of (RESTASIS) 15:09: both eyes [place] 0.05 % 27 every 12 Medical drops (twelve) Branch hours. aspirin 81 0 Yes 81mg Take 81 mg U nivers mg chewable 5-12 by mouth ity of tablet 15:09: daily. [address] atorvastati Yes 10mg Take 10 mg Univers n 10 mg 5-12 by mouth. ity of tablet 15:09: [address] doxepin 10 Yes 10mg Take 10 mg U nivers mg capsule 5-12 by mouth. ity of 15:09: [address] insulin Yes 160U inject 160 Univ ers glargine 5-12 Units ity of U-300 conc 15:09: under the [place] ([place] 27 skin. Medical SOLOSTAR Branch U-300 INSULIN) 300 unit/mL (1.5 mL) InPn lithium Yes 300mg Take 300 Unive rs carbonate 5-12 mg by ity of 300 mg 15:09: mouth. [place] [address] Medical Branch SERTraline Yes 50mg Take 50 mg U nivers 50 mg 5-12 by mouth. ity of tablet 15:09: [address] celecoxib 2020- Yes 200mg Take 200 Uni vers (CELEBREX) 5-12 mg by ity of 200 mg 15:09: mouth 2 [place] [address] (two) Medical times Branch daily. hydroxychlo 2020- Yes 200mg Take 200 U nivers roquine 200 5-12 mg by ity of mg tablet 15:09: mouth 2 [place] [address] (two) Medical times Branch daily. cyclobenzap Yes 10mg Take 10 mg Univers rine 10 mg 5-12 by mouth 3 ity of tablet 15:09: (three) [place] [address] times Medical daily. Branch pilocarpine Yes 7.5mg Take 7.5 U nivers 7.5 mg 5-12 mg by ity of tablet 15:09: mouth 3 [place] [address] (three) Medical times Branch daily. Armodafinil Yes 250mg Take 250 U nivers (NUVIGIL) 5-12 mg by ity of 250 mg Tab 15:09: mouth [place] [address] daily. Medical Branch cycloSPORIN Yes 1[drp] Place 1 U nivers E 5-12 Drop in ity of (RESTASIS) 15:09: both eyes [place] 0.05 % 27 every 12 Medical drops (twelve) Branch hours. aspirin 81 Yes 81mg Take 81 mg U nivers mg chewable 5-12 by mouth ity of tablet 15:09: daily. [address] atorvastati Yes 10mg Take 10 mg Univers n 10 mg 5-12 by mouth. ity of tablet 15:09: [address] doxepin 10 Yes 10mg Take 10 mg U nivers mg capsule 5-12 by mouth. ity of 15:09: [address] insulin Yes 160U inject 160 Univ ers glargine 5-12 Units ity of U-300 conc 15:09: under the [place] ([place] 27 skin. Medical SOLOSTAR Branch U-300 INSULIN) 300 unit/mL (1.5 mL) InPn lithium Yes 300mg Take 300 Unive rs carbonate 5-12 mg by ity of 300 mg 15:09: mouth. [address] Branch SERTraline Yes 50mg Take 50 mg U nivers 50 mg 5-12 by mouth. ity of tablet 15:09: [address] celecoxib Yes 200mg Take 200 Uni vers (CELEBREX) 5-12 mg by ity of 200 mg 15:09: mouth 2 [place] [address] (two) Medical times Branch daily. hydroxychlo Yes 200mg Take 200 U nivers roquine 200 5-12 mg by ity of mg tablet 15:09: mouth 2 [place] [address] (two) Medical times Branch daily. cyclobenzap Yes 10mg Take 10 mg Univers rine 10 mg 5-12 by mouth 3 ity of tablet 15:09: (three) [address] daily. Branch pilocarpine Yes 7.5mg Take 7.5 U nivers 7.5 mg 5-12 mg by ity of tablet 15:09: mouth 3 [place] [address] (three) Medical times [place] daily. Armodafinil Yes 250mg Take 250 U nivers (NUVIGIL) 5-12 mg by ity of 250 mg Tab 15:09: mouth [place] [address] daily. Medical Branch cycloSPORIN Yes 1[drp] Place 1 U nivers E 5-12 Drop in ity of (RESTASIS) 15:09: both eyes [place] 0.05 % 27 every 12 Medical drops (twelve) Branch hours. aspirin 81 Yes 81mg Take 81 mg U nivers mg chewable 5-12 by mouth ity of tablet 15:09: daily. [address] atorvastati Yes 10mg Take 10 mg Univers n 10 mg 5-12 by mouth. ity of tablet 15:09: [address] doxepin 10 Yes 10mg Take 10 mg U nivers mg capsule 5-12 by mouth. ity of 15:09: [address] insulin Yes 160U inject 160 Univ ers glargine 5-12 Units ity of U-300 conc 15:09: under the [place] ([place] 27 skin. Medical SOLOSTAR Branch U-300 INSULIN) 300 unit/mL (1.5 mL) InPn lithium Yes 300mg Take 300 Unive rs carbonate 5-12 mg by ity of 300 mg 15:09: mouth. [place] capsule [address] [place] [address] SERTraline Yes 50mg Take 50 mg U nivers 50 mg 5-12 by mouth. ity of tablet 15:09: [address] celecoxib Yes 200mg Take 200 Uni vers (CELEBREX) 5-12 mg by ity of 200 mg 15:09: mouth 2 [place] [address] (two) Medical times [place] daily. hydroxychlo Yes 200mg Take 200 U nivers roquine 200 5-12 mg by ity of mg tablet 15:09: mouth 2 [place] [address] (two) Medical times Branch daily. cyclobenzap Yes 10mg Take 10 mg Univers rine 10 mg 5-12 by mouth 3 ity of tablet 15:09: (three) [place] [address] times Medical daily. Branch pilocarpine Yes 7.5mg Take 7.5 U nivers 7.5 mg 5-12 mg by ity of tablet 15:09: mouth 3 [place] [address] (three) Medical times Branch daily. Armodafinil Yes 250mg Take 250 U nivers (NUVIGIL) 5-12 mg by ity of 250 mg Tab 15:09: mouth [place] [address] daily. Medical Branch cycloSPORIN Yes 1[drp] Place 1 U nivers E 5-12 Drop in ity of (RESTASIS) 15:09: both eyes [place] 0.05 % 27 every 12 Medical drops (twelve) Branch hours. aspirin 81 Yes 81mg Take 81 mg U nivers mg chewable 5-12 by mouth ity of tablet 15:09: daily. [address] atorvastati Yes 10mg Take 10 mg Univers n 10 mg 5-12 by mouth. ity of tablet 15:09: [address] doxepin 10 Yes 10mg Take 10 mg U nivers mg capsule 5-12 by mouth. ity of 15:09: [address] insulin Yes 160U inject 160 Univ ers glargine 5-12 Units ity of U-300 conc 15:09: under the [place] ([place] 27 skin. Medical SOLOSTAR Branch U-300 INSULIN) 300 unit/mL (1.5 mL) InPn lithium Yes 300mg Take 300 Unive rs carbonate 5-12 mg by ity of 300 mg 15:09: mouth. [address] Branch SERTraline Yes 50mg Take 50 mg U nivers 50 mg 5-12 by mouth. ity of tablet 15:09: [address] celecoxib Yes 200mg Take 200 Uni vers (CELEBREX) 5-12 mg by ity of 200 mg 15:09: mouth 2 [place] [address] (two) Medical times Branch daily. hydroxychlo Yes 200mg Take 200 U nivers roquine 200 5-12 mg by ity of mg tablet 15:09: mouth 2 [place] [address] (two) Medical times Branch daily. cyclobenzap Yes 10mg Take 10 mg Univers rine 10 mg 5-12 by mouth 3 ity of tablet 15:09: (three) [place] [address] times Medical daily. Branch pilocarpine Yes 7.5mg Take 7.5 U nivers 7.5 mg 5-12 mg by ity of tablet 15:09: mouth 3 [place] [address] (three) Medical times Branch daily. Armodafinil Yes 250mg Take 250 U nivers (NUVIGIL) 5-12 mg by ity of 250 mg Tab 15:09: mouth [place] [address] daily. Medical Branch cycloSPORIN Yes 1[drp] Place 1 U nivers E 5-12 Drop in ity of (RESTASIS) 15:09: both eyes [place] 0.05 % 27 every 12 Medical drops (twelve) Branch hours. aspirin 81 Yes 81mg Take 81 mg U nivers mg chewable 5-12 by mouth ity of tablet 15:09: daily. [address] atorvastati Yes 10mg Take 10 mg Univers n 10 mg 5-12 by mouth. ity of tablet 15:09: [address] doxepin 10 Yes 10mg Take 10 mg U nivers mg capsule 5-12 by mouth. ity of 15:09: [address] insulin Yes 160U inject 160 Univ ers glargine 5-12 Units ity of U-300 conc 15:09: under the [place] ([place] 27 skin. Medical SOLOSTAR Branch U-300 INSULIN) 300 unit/mL (1.5 mL) InPn lithium Yes 300mg Take 300 Unive rs carbonate 5-12 mg by ity of 300 mg 15:09: mouth. [address] SERTraline Yes 50mg Take 50 mg U nivers 50 mg 5-12 by mouth. ity of tablet 15:09: [address] celecoxib Yes 200mg Take 200 Uni vers (CELEBREX) 5-12 mg by ity of 200 mg 15:09: mouth 2 [place] [address] (two) Medical times Branch daily. hydroxychlo Yes 200mg Take 200 U nivers roquine 200 5-12 mg by ity of mg tablet 15:09: mouth 2 [place] [address] (two) Medical times Branch daily. cyclobenzap Yes 10mg Take 10 mg Univers rine 10 mg 5-12 by mouth 3 ity of tablet 15:09: (three) [place] [address] times Medical daily. Branch pilocarpine Yes 7.5mg Take 7.5 U nivers 7.5 mg 5-12 mg by ity of tablet 15:09: mouth 3 [place] [address] (three) Medical times [place] daily. Armodafinil Yes 250mg Take 250 U nivers (NUVIGIL) 5-12 mg by ity of 250 mg Tab 15:09: mouth [place] [address] daily. Medical Branch cycloSPORIN Yes 1[drp] Place 1 U nivers E 5-12 Drop in ity of (RESTASIS) 15:09: [place] eyes [place] 0.05 % 27 every 12 Medical drops (twelve) Branch hours. aspirin 81 Yes 81mg Take 81 mg U nivers mg chewable 5-12 by mouth ity of tablet 15:09: daily. [address] atorvastati Yes 10mg Take 10 mg Univers n 10 mg 5-12 by mouth. ity of tablet 15:09: [address] doxepin 10 Yes 10mg Take 10 mg U nivers mg capsule 5-12 by mouth. ity of 15:09: [address] insulin Yes 160U inject 160 Univ ers glargine 5-12 Units ity of U-300 conc 15:09: under the [place] (TOUJEO 27 skin. Medical SOLOSTAR Branch U-300 INSULIN) 300 unit/mL (1.5 mL) InPn lithium Yes 300mg Take 300 Unive rs carbonate 5-12 mg by ity of 300 mg 15:09: mouth. [place] [address] Medical Branch SERTraline Yes 50mg Take 50 mg U nivers 50 mg 5-12 by mouth. ity of tablet 15:09: [address] celecoxib Yes 200mg Take 200 Uni vers (CELEBREX) 5-12 mg by ity of 200 mg 15:09: mouth 2 [place] [address] (two) Medical times Branch daily. hydroxychlo Yes 200mg Take 200 U nivers roquine 200 5-12 mg by ity of mg tablet 15:09: mouth 2 [place] [address] (two) Medical times Branch daily. cyclobenzap Yes 10mg Take 10 mg Univers rine 10 mg 5-12 by mouth 3 ity of tablet 15:09: (three) [place] [address] times Medical daily. Branch pilocarpine Yes 7.5mg Take 7.5 U nivers 7.5 mg 5-12 mg by ity of tablet 15:09: mouth 3 [place] [address] (three) Medical times [place] daily. Armodafinil Yes 250mg Take 250 U nivers (NUVIGIL) 5-12 mg by ity of 250 mg Tab 15:09: mouth [place] [address] daily. Medical Branch cycloSPORIN Yes 1[drp] Place 1 U nivers E 5-12 Drop in ity of (RESTASIS) 15:09: [place] eyes [place] 0.05 % 27 every 12 Medical drops (twelve) Branch hours. aspirin 81 Yes 81mg Take 81 mg U nivers mg chewable 5-12 by mouth ity of tablet 15:09: daily. [address] atorvastati Yes 10mg Take 10 mg Univers n 10 mg 5-12 by mouth. ity of tablet 15:09: [address] doxepin 10 Yes 10mg Take 10 mg U nivers mg capsule 5-12 by mouth. ity of 15:09: [address] insulin Yes 160U inject 160 Univ ers glargine 5-12 Units ity of U-300 conc 15:09: under the [place] (TOUJEO 27 skin. Medical SOLOSTAR Branch U-300 INSULIN) 300 unit/mL (1.5 mL) InPn lithium Yes 300mg Take 300 Unive rs carbonate 5-12 mg by ity of 300 mg 15:09: mouth. [place] [address] Medical Branch SERTraline Yes 50mg Take 50 mg U nivers 50 mg 5-12 by mouth. ity of tablet 15:09: [address] Branch celecoxib Yes 200mg Take 200 Uni vers (CELEBREX) 5-12 mg by ity of 200 mg 15:09: mouth 2 [place] [address] (two) Medical times Branch daily. hydroxychlo Yes 200mg Take 200 U nivers roquine 200 5-12 mg by ity of mg tablet 15:09: mouth 2 [place] [address] (two) Medical times Branch daily. cyclobenzap Yes 10mg Take 10 mg Univers rine 10 mg 5-12 by mouth 3 ity of tablet 15:09: (three) [address] daily. Branch pilocarpine Yes 7.5mg Take 7.5 U nivers 7.5 mg 5-12 mg by ity of tablet 15:09: mouth 3 [place] [address] (three) Medical times [place] daily. Armodafinil Yes 250mg Take 250 U nivers (NUVIGIL) 5-12 mg by ity of 250 mg Tab 15:09: mouth [place] [address] daily. Medical Branch cycloSPORIN Yes 1[drp] Place 1 U nivers E 5-12 Drop in ity of (RESTASIS) 15:09: [place] eyes [place] 0.05 % 27 every 12 Medical drops (twelve) Branch hours. aspirin 81 Yes 81mg Take 81 mg U nivers mg chewable 5-12 by mouth ity of tablet 15:09: daily. [address] atorvastati Yes 10mg Take 10 mg Univers n 10 mg 5-12 by mouth. ity of tablet 15:09: [address] doxepin 10 Yes 10mg Take 10 mg U nivers mg capsule 5-12 by mouth. ity of 15:09: [address] insulin Yes 160U inject 160 Univ ers glargine 5-12 Units ity of U-300 conc 15:09: under the [place] (TOUJEO 27 skin. Medical SOLOSTAR Branch U-300 INSULIN) 300 unit/mL (1.5 mL) InPn lithium Yes 300mg Take 300 Unive rs carbonate 5-12 mg by ity of 300 mg 15:09: mouth. [place] [address] Medical Branch SERTraline Yes 50mg Take 50 mg U nivers 50 mg 5-12 by mouth. ity of tablet 15:09: [address] celecoxib Yes 200mg Take 200 Uni vers (CELEBREX) 5-12 mg by ity of 200 mg 15:09: mouth 2 [place] [address] (two) Medical times Branch daily. hydroxychlo Yes 200mg Take 200 U nivers roquine 200 5-12 mg by ity of mg tablet 15:09: mouth 2 [place] [address] (two) Medical times [place] daily. cyclobenzap Yes 10mg Take 10 mg Univers rine 10 mg 5-12 by mouth 3 ity of tablet 15:09: (three) [address] daily. Branch pilocarpine Yes 7.5mg Take 7.5 U nivers 7.5 mg 5-12 mg by ity of tablet 15:09: mouth 3 [place] [address] (three) Medical times [place] daily. Armodafinil Yes 250mg Take 250 U nivers (NUVIGIL) 5-12 mg by ity of 250 mg Tab 15:09: mouth [place] [address] daily. Medical Branch cycloSPORIN Yes 1[drp] Place 1 U nivers E 5-12 Drop in ity of (RESTASIS) 15:09: [place] eyes [place] 0.05 % 27 every 12 Medical drops (twelve) Branch hours. aspirin 81 Yes 81mg Take 81 mg U nivers mg chewable 5-12 by mouth ity of tablet 15:09: daily. [address] atorvastati Yes 10mg Take 10 mg Univers n 10 mg 5-12 by mouth. ity of tablet 15:09: [address] doxepin 10 Yes 10mg Take 10 mg U nivers mg capsule 5-12 by mouth. ity of 15:09: [address] insulin Yes 160U inject 160 Univ ers glargine 5-12 Units ity of U-300 conc 15:09: under the [place] (TOUJEO 27 skin. Medical SOLOSTAR Branch U-300 INSULIN) 300 unit/mL (1.5 mL) InPn lithium Yes 300mg Take 300 Unive rs carbonate 5-12 mg by ity of 300 mg 15:09: mouth. [address] Branch SERTraline Yes 50mg Take 50 mg U nivers 50 mg 5-12 by mouth. ity of tablet 15:09: [address] atorvastati Yes 10mg Take 10 mg Univers n 10 mg 5-12 by mouth. ity of tablet 15:09: [address] atorvastati Yes 10mg Take 10 mg Univers n 10 mg 5-12 by mouth. ity of tablet 15:09: [address] atorvastati Yes 10mg Take 10 mg Univers n 10 mg 5-12 by mouth. ity of tablet 15:09: [place] [address] Medical [place] exenatide Yes 2mg inject 2 Univ ers [...] 40 Medical injection Branch oxybutynin 2020-0 Yes [id number] 5mg Take 1 U nivers XL 5 mg 24 5-12 tablet by ity of hr tablet 00:00: mouth [place] 00 daily. Medical Branch oxybutynin 2020-0 Yes [id number] 5mg Take 1 U nivers XL 5 mg 24 5-12 tablet by ity of hr tablet 00:00: mouth [place] 00 daily. Medical Branch oxybutynin 2020-0 Yes [id number] 5mg Take 1 U nivers XL 5 mg 24 5-12 tablet by ity of hr tablet 00:00: mouth [place] 00 daily. Medical Branch oxybutynin 2020-0 Yes [id number] 5mg Take 1 U nivers XL 5 mg 24 5-12 tablet by ity of hr tablet 00:00: mouth [place] 00 daily. Medical Branch oxybutynin 2020-0 Yes [id number] 5mg Take 1 U nivers XL 5 mg 24 5-12 tablet by ity of hr tablet 00:00: mouth [place] 00 daily. Medical Branch oxybutynin 2020-0 Yes [id number] 5mg Take 1 U nivers XL 5 mg 24 5-12 tablet by ity of hr tablet 00:00: mouth [place] 00 daily. Medical Branch oxybutynin 2020-0 Yes [id number] 5mg Take 1 U nivers XL 5 mg 24 5-12 tablet by ity of hr tablet 00:00: mouth [place] 00 daily. Medical Branch oxybutynin 2020-0 Yes [id number] 5mg Take 1 U nivers XL 5 mg 24 5-12 tablet by ity of hr tablet 00:00: mouth [place] 00 daily. Medical Branch oxybutynin 2020-0 Yes [id number] 5mg Take 1 U nivers XL 5 mg 24 5-12 tablet by ity of hr tablet 00:00: mouth [place] 00 daily. Medical Branch oxybutynin 2020-0 Yes [id number] 5mg Take 1 U nivers XL 5 mg 24 5-12 tablet by ity of hr tablet 00:00: mouth [place] 00 daily. Medical Branch oxybutynin 2020-0 Yes [id number] 5mg Take 1 U nivers XL 5 mg 24 5-12 tablet by ity of hr tablet 00:00: mouth [place] 00 daily. Medical Branch oxybutynin 2020-0 Yes [id number] 5mg Take 1 U nivers XL 5 mg 24 5-12 tablet by ity of hr tablet 00:00: mouth [place] 00 daily. Medical Branch oxybutynin 2020-0 Yes [id number] 5mg Take 1 U nivers XL 5 mg 24 5-12 tablet by ity of hr tablet 00:00: mouth [place] 00 daily. Medical Branch oxybutynin 2020-0 Yes [id number] 5mg Take 1 U nivers XL 5 mg 24 5-12 tablet by ity of hr tablet 00:00: mouth [place] 00 daily. Medical Branch oxybutynin 2020-0 Yes [id number] 5mg Take 1 U nivers XL 5 mg 24 5-12 tablet by ity of hr tablet 00:00: mouth [place] 00 daily. Medical Branch oxybutynin 2020-0 Yes [id number] 5mg Take 1 U nivers XL 5 [...] mg. Health tablet 00:00: 00 oxybutynin 2020-0 2- No [id number] 5mg Take 1 Univers XL 5 mg 24 06-21 tablet by ity of hr tablet 00:00: 00:00 mouth [place] 00 :00 daily. [facility] oxybutynin 0 2- No [id number] 5mg Take 1 Univers XL 5 mg 24 06-21 tablet by ity of hr tablet 00:00: 00:00 mouth [place] 00 :00 daily. [facility] metformin 2020-0 Yes Univers ER 500 mg 5-10 ity of 24 hr 00:00: [place] tablet 00 [facility] metformin 1-0 Yes Univers ER 500 mg 5-10 ity of 24 hr 00:00: [place] tablet 00 [facility] metformin 1-0 Yes Univers ER 500 mg 5-10 ity of 24 hr 00:00: [place] tablet 00 [facility] metformin 1-0 Yes Univers ER 500 mg 5-10 ity of 24 hr 00:00: [place] tablet 00 [facility] metformin 2021-0 Yes Univers ER 500 mg 5-10 ity of 24 hr 00:00: [place] tablet 00 [facility] metformin 1-0 Yes Univers ER 500 mg 5-10 ity of 24 hr 00:00: [place] tablet 00 [facility] metformin 1-0 Yes Univers ER 500 mg 5-10 ity of 24 hr 00:00: [place] tablet 00 [facility] metformin 2021-0 Yes Univers ER 500 mg 5-10 ity of 24 hr 00:00: [place] tablet 00 [facility] metformin 2021-0 Yes Univers ER 500 mg 5-10 ity of 24 hr 00:00: [place] tablet 00 [facility] metformin 2021-0 Yes Univers ER 500 mg 5-10 ity of 24 hr 00:00: [place] tablet 00 [facility] metformin 2021-0 Yes Univers ER 500 mg 5-10 ity of 24 hr 00:00: [place] tablet 00 [facility] metformin 2021-0 Yes Univers ER 500 mg 5-10 ity of 24 hr 00:00: [place] tablet 00 [facility] metformin 2021-0 Yes Univers ER 500 mg 5-10 ity of 24 hr 00:00: [place] tablet 00 [facility] metformin 2021-0 Yes Univers ER 500 mg 5-10 ity of 24 hr 00:00: [place] tablet 00 [facility] metformin 2021-0 Yes Univers ER 500 mg [...] 300 mg 4-23 ity of capsule 00:00: [place] 00 Medical Branch gabapentin 2021-0 Yes Univers 300 mg 4-23 ity of capsule 00:00: [place] [address] Medical Branch gabapentin 2021-0 Yes Univers 300 mg 4-23 ity of capsule 00:00: [place] [address] Medical Branch gabapentin 2021-0 Yes Univers 300 mg 4-23 ity of capsule 00:00: [place] [address] Medical Branch gabapentin 2021-0 Yes Univers 300 mg 4-23 ity of capsule 00:00: [place] [address] Medical Branch gabapentin 2021-0 Yes Univers 300 mg 4-23 ity of capsule 00:00: [place] [address] Medical Branch gabapentin 2021-0 Yes Univers 300 mg 4-23 ity of capsule 00:00: [place] [address] Medical Branch gabapentin 2021-0 Yes Univers 300 mg 4-23 ity of capsule 00:00: [place] [address] Medical Branch gabapentin 2021-0 Yes Univers 300 mg 4-23 ity of capsule 00:00: [place] [address] Medical Branch gabapentin 2021-0 Yes Univers 300 mg 4-23 ity of capsule 00:00: [place] [address] Medical Branch gabapentin 2021-0 Yes Univers 300 mg 4-23 ity of capsule 00:00: [place] [address] Medical Branch gabapentin 2021-0 Yes Univers 300 mg 4-23 ity of capsule 00:00: [place] [address] Medical Branch gabapentin 2021-0 Yes Univers 300 mg 4-23 ity of capsule 00:00: [place] [address] Medical Branch gabapentin 2021-0 Yes Univers 300 mg 4-23 ity of capsule 00:00: [place] [address] Medical Branch gabapentin 2021-0 Yes Univers 300 mg 4-23 ity of capsule 00:00: [place] [address] Medical Branch gabapentin 2021-0 Yes Univers 300 mg 4-23 ity of capsule 00:00: [place] 00 Medical Branch gabapentin 2021-0 2022- No Univer s 300 mg 06-02 ity of capsule 00:00: 00:00 [place] 00 :00 Medical Branch gabapentin 2021-0 2022- No Univer s 300 mg 06-02 ity of capsule 00:00: 00:00 [place] 00 :00 Medical Branch lisinopriL- 2020-0 Yes Univer s hydrochloro 4-07 ity of thiazide 00:00: [place] 20-12.5 mg 00 Medical per tablet Branch lisinopriL- 2020-0 Yes Univer s hydrochloro 4-07 ity of thiazide 00:00: [place] 20-12.5 mg 00 Medical per tablet Branch lisinopriL- 2020-0 Yes Univer s hydrochloro 4-07 ity of thiazide 00:00: [place] 20-12.5 mg 00 Medical per tablet Branch lisinopriL- 2020-0 Yes Univdino s hydrochloro 4-07 ity of thiazide 00:00: [...] 00 Medical per tablet Branch lisinopriL- Yes [facility] s hydrochloro 4-07 ity of thiazide 00:00: [place] 20-12.5 mg 00 Medical per tablet Branch lisinopriL- Yes [facility] s hydrochloro 4-07 ity of thiazide 00:00: [place] 20-12.5 mg 00 Medical per tablet Branch lisinopriL- Yes [facility] hydrochloro 4-07 ity of thiazide 00:00: [place] 20-12.5 mg 00 Medical per tablet Branch lisinopriL- Yes [facility] s hydrochloro 4-07 ity of thiazide 00:00: [place] 20-12.5 mg 00 Medical per tablet Branch lisinopriL- Yes [facility] hydrochloro 4-07 ity of thiazide 00:00: [place] 20-12.5 mg 00 Medical per tablet Branch lisinopriL- Yes [facility] hydrochloro 4-07 ity of thiazide 00:00: [place] 20-12.5 mg 00 Medical per tablet Branch lisinopriL- Yes [facility] [place] [facility] hydrochloro 4-07 ity of thiazide 00:00: [place] 20-12.5 mg 00 Medical per tablet Branch lisinopriL- Yes [facility] [place] [facility] hydrochloro 4-07 ity of thiazide 00:00: [place] 20-12.5 mg 00 Medical per tablet Branch thiamine 0 2020- No 50mg QD Take 0.5 Meth gwen mononitrate 3-27 04-[address] , vit B1, 00:00: 04:59 (50 mg Hospi ta (B-1) 100 00 :00 total) by l mg tablet mouth daily for 30 days. cyclobenzap 0 2020- No 10mg Q.[id number] Take 10 mg Methodi rine 3-26 03-26 [id number] by mouth [address] (FLEXERIL) 21:43: 00:00 3D (three) Hos ileana 10 MG 22 :00 times a l tablet day. celecoxib 0 Yes 200mg Q.5D Take 200 [facility] (CeleBREX) 3-[address] 200 MG 21:43: mouth 2 Hospita capsule 19 (two) l times a day. hydroxychlo 202-0 Yes Q.5D Take by [facility] roquine 3-[address] (PLAQUENIL) 21:43: (two) Hospi ta 200 mg 19 times a l tablet day. PILOCARPINE 2020-0 Yes 7.5mg Q.[id number] Take 7.5 [facility] HCL ORAL 3-[id number] 21:43: 3D mouth 3 [...] 21:43: nightly. Hosp [facility] 19 l atorvastati 2020-0 Yes 10mg QD Take 10 mg Methodi n (LIPITOR) 3-[address] 10 mg 21:43: nightly. Hospita tablet 19 l lithium 300 2020-0 Yes 300mg Q.[id number] Take 300 [facility] MG capsule 3-[id number] 21:43: 3D mouth 3 [...] 30 (thirty) days. insulin 2020-0 Yes 22U [id number] Inject 22 [facility] lispro 3-[id number] (HUMALOG 21:43: 3D under the Hosp [facility] KWIKPEN 19 skin 3 l INSULIN (three) SUBQ) times a day with meals. insulin 2020-0 Yes 11U QD Inject 11 Metho di lispro 3-[address] (HUMALOG 21:43: under the [facility] KWIKPEN 19 skin l INSULIN nightly. SUBQ) insulin 2020-0 Yes 160U QD Inject 160 Meth gwen [...] l tablet day. PILOCARPINE 2020-0 Yes 7.5mg Q.[id number] Take 7.5 [facility] HCL ORAL 3-[id number] 16:43: 3D mouth 3 [...] 19 l lithium 300 2020-0 Yes 300mg Q.[id number] Take 300 [facility] MG capsule 3-[id number] 16:43: 3D mouth 3 Hospita 19 (three) l times a day with meals. metFORMIN 2020-0 Yes 1000mg Q.5D Take 1,000 [facility] XR 3-[address] (GLUCOPHAGE 16:43: mouth 2 Hos ileana -XR) 500 mg 19 (two) l 24 hr times a tablet day with meals. sertraline Yes 50mg QD Take 50 mg M ethodi (ZOLOFT) [address] MG tablet 16:43: daily. Hospit a 19 l golimumab Yes Q30D Infuse Method i (SIMPONI -[address] ARIA IV) 16:43: venous Hospita 19 catheter l every 30 (thirty) days. insulin Yes 22U Q.[id number] Inject 22 [facility] lispro -[id number] (HUMALOG 16:43: 3D under the [...] QD Take 1 Meth gwen (DELTASONE) 05-05 04-01 tablet (20 s t 20 mg 00:00: 04:59 mg total) Hospit a tablet 00 :00 by mouth l daily for 5 days. suvorexant 2020- No QD Take by Met payan (BELSOMRA) 05-04-[address] 20 mg 21:42: [...] pirit one) one) 00:00: - [facility] 00 [facility] Kenalog Kenalog 2020-0 No 40mg Common (Triamcinol (Triamcinol 9-22 S pirit one) one) 00:00: - [facility] 00 [facility] Kenalog Kenalog 2020-0 No 40mg Common (Triamcinol (Triamcinol 9-22 S pirit one) one) 00:00: - [facility] 00 [facility] Kenalog Kenalog 2020-0 No 40mg Common (Triamcinol (Triamcinol 9-22 S pirit one) one) 00:00: - [facility] 00 [facility] Kenalog Kenalog 2020-0 No 40mg Common (Triamcinol (Triamcinol 9-22 S pirit one) one) 00:00: - [facility] 00 [facility] Kenalog Kenalog 2020-0 No 40mg Common (Triamcinol (Triamcinol 9-22 S pirit one) one) 00:00: - [facility] 00 [facility] Kenalog Kenalog 2020-0 No 40mg Common (Triamcinol (Triamcinol 9-22 S pirit one) one) 00:00: - [facility] 00 [facility] Kenalog Kenalog 2020-0 No 40mg Common (Triamcinol (Triamcinol 9-22 S pirit one) one) 00:00: - [facility] 00 [facility] Kenalog Kenalog 2020-0 No 40mg Common (Triamcinol (Triamcinol 9-22 S pirit one) one) 00:00: - [facility] 00 [facility] Kenalog Kenalog 2020-0 No 40mg Common (Triamcinol (Triamcinol 9-22 S pirit one) one) 00:00: - [facility] 00 [facility] Kenalog Kenalog 2020-0 No 40mg Common (Triamcinol (Triamcinol 9-22 S pirit one) one) 00:00: - [facility] 00 [facility] Kenalog Kenalog 2020-0 No 40mg Common (Triamcinol (Triamcinol 9-22 S pirit one) one) 00:00: - [facility] 00 [facility] Kenalog Kenalog 2020-0 No 40mg Common (Triamcinol (Triamcinol 9-22 S pirit one) one) 00:00: - [facility] 00 [facility] Kenalog Kenalog 2020-0 No 40mg Common (Triamcinol (Triamcinol 9-22 S pirit one) one) 00:00: - [facility] 00 [facility] Kenalog Kenalog 2020-0 No 40mg Common (Triamcinol (Triamcinol 9-22 S pirit one) one) 00:00: - [facility] 00 [facility] Amoxicillin Amoxicillin 2020-0 2020- No [facility] 1 capsule Common 10-26 [facility] 00:00: 00:00 - [facility] 00 :00 [facility] atorvastati 2020-0 Yes 1 tablet [place] [facility] (Lipitor) 8-20 Health 10 MG 00:00: tablet 00 atorvastati 2020-0 Yes 1 tablet [place] [facility] (Lipitor) 8-20 Health 10 MG 00:00: tablet 00 Furosemide Furosemide 0 Yes [facility] 0.5 tablet Common 06-10 [facility] 00:00: - [facility] 00 [facility] Furosemide Furosemide 0 No .5{tabl QD Furosemide [...] et} 20 MG 00:00: 00 Hydrocodone Hydrocodone 2018- Yes [place] 1 tablet Common -Acetaminop -Acetaminop 0 [facility] as needed [facility] hen hen 00:00: - [facility] 00 [facility] HYDROcodone HYDROcodone 2018- No 1{table BID HYDROcodon [...] per tablet (twelve) Branc h hours. simvastatin 2017 Yes 40mg Take 40 mg Univers 40 mg 6-15 by mouth ity of tablet 18:18: at [place] [address] bedtime. Medical Branch traZODONE 2017- Yes 100mg Take Univers 100 mg 6-15 100-200 mg ity of tablet 18:18: by mouth [place] [address] at bedtime Medical as needed Branch for Insomnia. ARIPiprazol 2017- Yes 20mg Take 20 mg Univers e (ABILIFY) 6-15 by mouth ity of 20 mg 18:18: at [place] [address] bedtime. Medical Branch suvorexant 2016- Yes 20mg Take 20 mg U nivers (BELSOMRA) 6-15 by mouth ity o f 20 mg Tab 18:18: at [place] [address] bedtime. Medical Branch prednisoLON 2017-0 Yes 1[drp] 1 Drop Un emanuel E acetate 1 6-15 every 2 ity o f % 18:18: (two) [place] ophthalmic 54 hours as Medic al suspension needed for Bra nch drops Itching. foLIC acid 20170 Yes 2mg Take 2 mg Un emanuel 1 mg tablet 6-15 by mouth ity of 18:18: daily. [place] [address] Medical Branch simvastatin 2017-0 Yes 40mg Take 40 mg Univers 40 mg 6-15 by mouth ity of tablet 18:18: at [place] [address] bedtime. Medical Branch traZODONE 20170 Yes 100mg Take Univers 100 mg 6-15 100-200 mg ity of tablet 18:18: by mouth [place] [address] at bedtime Medical as needed Branch for Insomnia. ARIPiprazol 0 Yes 20mg Take 20 mg Univers e (ABILIFY) 6-15 by mouth ity of 20 mg 18:18: at [place] [address] bedtime. Medical Branch suvorexant 0 Yes 20mg Take 20 mg U nivers (BELSOMRA) 6-15 by mouth ity o f 20 mg Tab 18:18: at [place] [address] bedtime. Medical Branch prednisoLON 20170 Yes 1[drp] 1 Drop Un emanuel E acetate 1 6-15 every 2 ity o f % 18:18: (two) [place] ophthalmic 54 hours as Medic al suspension needed for Bra nch drops Itching. foLIC acid 2017 Yes 2mg Take 2 mg Un emanuel 1 mg tablet 6-15 by mouth ity of 18:18: daily. [place] [address] Medical Branch simvastatin 20170 Yes 40mg Take 40 mg Univers 40 mg 6-15 by mouth ity of tablet 18:18: at [place] [address] bedtime. Medical Branch traZODONE 20170 Yes 100mg Take Univers 100 mg 6-15 100-200 mg ity of tablet 18:18: by mouth [place] [address] at bedtime Medical as needed Branch for Insomnia. ARIPiprazol 20170 Yes 20mg Take 20 mg Univers e (ABILIFY) 6-15 by mouth ity of 20 mg 18:18: at [place] [address] bedtime. Medical Branch suvorexant 2017-0 Yes 20mg Take 20 mg U nivers (BELSOMRA) 6-15 by mouth ity o f 20 mg Tab 18:18: at [place] [address] bedtime. Medical Branch prednisoLON 2017-0 Yes 1[drp] 1 Drop Un emanuel E acetate 1 6-15 every 2 ity o f % 18:18: (two) [place] ophthalmic 54 hours as Medic al suspension needed for Bra nch drops Itching. foLIC acid 20170 Yes 2mg Take 2 mg Un emanuel 1 mg tablet 6-15 by mouth ity of 18:18: daily. [place] [address] Medical Branch simvastatin 2017-0 Yes 40mg Take 40 mg Univers 40 mg 6-15 by mouth ity of tablet 18:18: at [place] [address] bedtime. Medical Branch traZODONE 20170 Yes 100mg Take Univers 100 mg 6-15 100-200 mg ity of tablet 18:18: by mouth [place] [address] at bedtime Medical as needed Branch for Insomnia. ARIPiprazol Yes 20mg Take 20 mg Univers e (ABILIFY) 6-15 by mouth ity of 20 mg 18:18: at [place] [address] bedtime. Medical Branch suvorexant 20170 Yes 20mg Take 20 mg U nivers (BELSOMRA) 6-15 by mouth ity o f 20 mg Tab 18:18: at [place] [address] bedtime. Medical Branch prednisoLON 20170 Yes 1[drp] 1 Drop Un emanuel E acetate 1 6-15 every 2 ity o f % 18:18: (two) [place] ophthalmic 54 hours as Medic al suspension needed for Bra nch drops Itching. foLIC acid 20170 Yes 2mg Take 2 mg Un emanuel 1 mg tablet 6-15 by mouth ity of 18:18: daily. [place] [address] Medical Branch simvastatin 2017-0 Yes 40mg Take 40 mg Univers 40 mg 6-15 by mouth ity of tablet 18:18: at [place] [address] bedtime. Medical Branch traZODONE 2017-0 Yes 100mg Take Univers 100 mg 6-15 100-200 mg ity of tablet 18:18: by mouth [place] [address] at bedtime Medical as needed Branch for Insomnia. ARIPiprazol 20170 Yes 20mg Take 20 mg Univers e (ABILIFY) 6-15 by mouth ity of 20 mg 18:18: at [place] [address] bedtime. Medical Branch suvorexant 2017-0 Yes 20mg Take 20 mg U nivers (BELSOMRA) 6-15 by mouth ity o f 20 mg Tab 18:18: at [place] [address] bedtime. Medical Branch prednisoLON 2017-0 Yes 1[drp] 1 Drop Un emanuel E acetate 1 6-15 every 2 ity o f % 18:18: (two) [place] ophthalmic 54 hours as Medic al suspension needed for Bra nch drops Itching. foLIC acid 20170 Yes 2mg Take 2 mg Un emanuel 1 mg tablet 6-15 by mouth ity of 18:18: daily. [place] [address] Medical Branch simvastatin 2017-0 Yes 40mg Take 40 mg Univers 40 mg 6-15 by mouth ity of tablet 18:18: at [place] [address] bedtime. Medical Branch traZODONE 20170 Yes 100mg Take Univers 100 mg 6-15 100-200 mg ity of tablet 18:18: by mouth [place] [address] at bedtime Medical as needed Branch for Insomnia. ARIPiprazol 2017 Yes 20mg Take 20 mg Univers e (ABILIFY) 6-15 by mouth ity of 20 mg 18:18: at [place] [address] bedtime. Medical Branch suvorexant 20170 Yes 20mg Take 20 mg U nivers (BELSOMRA) 6-15 by mouth ity o f 20 mg Tab 18:18: at [place] [address] bedtime. Medical Branch prednisoLON 2017-0 Yes 1[drp] 1 Drop Un emanuel E acetate 1 6-15 every 2 ity o f % 18:18: (two) [place] ophthalmic 54 hours as Medic al suspension needed for Bra nch drops Itching. foLIC acid 2017 Yes 2mg Take 2 mg Un emanuel 1 mg tablet 6-15 by mouth ity of 18:18: daily. [address] Branch foLIC acid 20170 Yes 2mg Take 2 mg Un emanuel 1 mg tablet 6-15 by mouth ity of 13:18: daily. [place] [address] Medical Branch simvastatin 2017-0 Yes 40mg Take 40 mg Univers 40 mg 6-15 by mouth ity of tablet 13:18: at [place] [address] bedtime. [facility] traZODONE 20170 Yes 100mg Take [facility] 100 mg 6-15 100-200 mg ity of tablet 13:18: by mouth [place] [address] at bedtime Medical as needed Branch for Insomnia. ARIPiprazol 2017-0 Yes 20mg Take 20 mg [facility] e (ABILIFY) 6-15 by mouth ity of 20 mg 13:18: at [place] [address] bedtime. [facility] suvorexant 2017-0 Yes 20mg Take 20 mg U nivers (BELSOMRA) 6-15 by mouth ity o f 20 mg Tab 13:18: at [place] [address] bedtime. [facility] prednisoLON 2017-0 Yes 1[drp] 1 Drop Un emanuel E acetate 1 6-15 every 2 ity o f % 13:18: (two) [place] [facility] 54 hours as Medic al suspension needed for Bra nch drops Itching. foLIC acid 20170 Yes 2mg Take 2 mg Un emanuel 1 mg tablet 6-15 by mouth ity of 13:18: daily. [place] [address] Medical Branch simvastatin 2017-0 Yes 40mg Take 40 mg [facility] 40 mg 6-15 by mouth ity of tablet 13:18: at [place] [address] bedtime. [facility] traZODONE 20170 Yes 100mg Take [facility] 100 mg 6-15 100-200 mg ity of tablet 13:18: by mouth [place] [address] at bedtime Medical as needed Branch for Insomnia. ARIPiprazol 0 Yes 20mg Take 20 mg [facility] e (ABILIFY) 6-15 by mouth ity of 20 mg 13:18: at [place] [address] bedtime. [facility] suvorexant 20170 Yes 20mg Take 20 mg U nivers (BELSOMRA) 6-15 by mouth ity o f 20 mg Tab 13:18: at [place] [address] bedtime. [facility] prednisoLON 2017 Yes 1[drp] 1 Drop Un emanuel E acetate 1 6-15 every 2 ity o f % 13:18: (two) [place] [facility] 54 hours as Medic al suspension needed for Bra nch drops Itching. foLIC acid 2017-0 Yes 2mg Take 2 mg Un emanuel 1 mg tablet 6-15 by mouth ity of 13:18: daily. [place] [address] Medical Branch simvastatin 2017-0 Yes 40mg Take 40 mg [facility] 40 mg 6-15 by mouth ity of tablet 13:18: at [place] [address] bedtime. [facility] traZODONE 2017-0 Yes 100mg Take [facility] 100 mg 6-15 100-200 mg ity of tablet 13:18: by mouth [place] [address] at bedtime Medical as needed Branch for Insomnia. ARIPiprazol 2017-0 Yes 20mg Take 20 mg [facility] e (ABILIFY) 6-15 by mouth ity of 20 mg 13:18: at [place] [address] bedtime. [facility] suvorexant 2017-0 Yes 20mg Take 20 mg U nivers (BELSOMRA) 6-15 by mouth ity o f 20 mg Tab 13:18: at [place] [address] bedtime. [facility] prednisoLON 2017-0 Yes 1[drp] 1 Drop Un emanuel E acetate 1 6-15 every 2 ity o f % 13:18: (two) [place] [facility] 54 hours as Medic al suspension needed for Bra nch drops Itching. foLIC acid 2017-0 Yes 2mg Take 2 mg Un emanuel 1 mg tablet 6-15 by mouth ity of 13:18: daily. [place] [address] [facility] Branch simvastatin 2017-0 Yes 40mg Take 40 mg [facility] 40 mg 6-15 by mouth ity of tablet 13:18: at [place] [address] bedtime. [facility] traZODONE 2017-0 Yes 100mg Take [facility] 100 mg 6-15 100-200 mg ity of tablet 13:18: by mouth [place] [address] at bedtime Medical as needed Branch for Insomnia. ARIPiprazol 2017-0 Yes 20mg Take 20 mg [facility] e (ABILIFY) 6-15 by mouth ity of 20 mg 13:18: at [place] [address] bedtime. [facility] suvorexant 2017-0 Yes 20mg Take 20 mg U nivers (BELSOMRA) 6-15 by mouth ity o f 20 mg Tab 13:18: at [place] [address] bedtime. [facility] prednisoLON 2017-0 Yes 1[drp] 1 Drop Un emanuel E acetate 1 6-15 every 2 ity o f % 13:18: (two) [place] [facility] 54 hours as Medic al suspension needed for Bra nch drops Itching. foLIC acid 2017-0 Yes 2mg Take 2 mg Un emanuel 1 mg tablet 6-15 by mouth ity of 13:18: daily. [place] [address] [facility] Branch simvastatin 2017-0 Yes 40mg Take 40 mg [facility] 40 mg 6-15 by mouth ity of tablet 13:18: at [place] [address] bedtime. [facility] traZODONE 2017-0 Yes 100mg Take [facility] 100 mg 6-15 100-200 mg ity of tablet 13:18: by mouth [place] [address] at bedtime Medical as needed Branch for Insomnia. ARIPiprazol 20170 Yes 20mg Take 20 mg [facility] e (ABILIFY) 6-15 by mouth ity of 20 mg 13:18: at [place] [address] bedtime. [facility] suvorexant 20170 Yes 20mg Take 20 mg U nivers (BELSOMRA) 6-15 by mouth ity o f 20 mg Tab 13:18: at [place] [address] bedtime. [facility] prednisoLON 2017 Yes 1[drp] 1 Drop Un emanuel E acetate 1 6-15 every 2 ity o f % 13:18: (two) [place] [facility] 54 hours as Medic al suspension needed for Bra nch drops Itching. foLIC acid 2017 Yes 2mg Take 2 mg Un emanuel 1 mg tablet 6-15 by mouth ity of 13:18: daily. [place] [address] [facility] Branch simvastatin 2017-0 Yes 40mg Take 40 mg [facility] 40 mg 6-15 by mouth ity of tablet 13:18: at [place] [address] bedtime. [facility] traZODONE 2017 Yes 100mg Take [facility] 100 mg 6-15 100-200 mg ity of tablet 13:18: by mouth [place] [address] at bedtime Medical as needed Branch for Insomnia. ARIPiprazol 20170 Yes 20mg Take 20 mg [facility] e (ABILIFY) 6-15 by mouth ity of 20 mg 13:18: at [facility] bedtime. [facility] suvorexant 0 Yes 20mg Take 20 mg U nivers (BELSOMRA) 6-15 by mouth ity o f 20 mg Tab 13:18: at [place] [address] bedtime. [facility] prednisoLON 20170 Yes 1[drp] 1 Drop Un emanuel E acetate 1 6-15 every 2 ity o f % 13:18: (two) [place] [facility] 54 hours as Medic al suspension needed for Bra nch drops Itching. foLIC acid 20170 Yes 2mg Take 2 mg Un emanuel 1 mg tablet 6-15 by mouth ity of 13:18: daily. [place] [address] [facility] Branch simvastatin 2017-0 Yes 40mg Take 40 mg [facility] 40 mg 6-15 by mouth ity of tablet 13:18: at [place] [address] bedtime. [facility] Branch traZODONE 20170 Yes 100mg Take [facility] 100 mg 6-15 100-200 mg ity of tablet 13:18: by mouth [place] [address] at bedtime Medical as needed Branch for Insomnia. ARIPiprazol 2017-0 Yes 20mg Take 20 mg [facility] e (ABILIFY) 6-15 by mouth ity of 20 mg 13:18: at [place] [address] bedtime. [facility] Branch suvorexant 2017-0 Yes 20mg Take 20 mg U nivers (BELSOMRA) 6-15 by mouth ity o f 20 mg Tab 13:18: at [place] [address] bedtime. [facility] prednisoLON 2017-0 Yes 1[drp] 1 Drop Un emanuel E acetate 1 6-15 every 2 ity o f % 13:18: (two) [place] [facility] 54 hours as Medic al suspension needed for Bra nch drops Itching. foLIC acid 20170 Yes 2mg Take 2 mg Un emanuel 1 mg tablet 6-15 by mouth ity of 13:18: daily. [place] [address] Medical Branch simvastatin 20170 Yes 40mg Take 40 mg [facility] 40 mg 6-15 by mouth ity of tablet 13:18: at [place] [address] bedtime. [facility] Branch traZODONE 0 Yes 100mg Take [facility] 100 mg 6-15 100-200 mg ity of tablet 13:18: by mouth [place] [address] at bedtime Medical as needed Branch for Insomnia. ARIPiprazol 20170 Yes 20mg Take 20 mg [facility] e (ABILIFY) 6-15 by mouth ity of 20 mg 13:18: at [place] [address] bedtime. Medical Branch suvorexant 20170 Yes 20mg Take 20 mg U nivers (BELSOMRA) 6-15 by mouth ity o f 20 mg Tab 13:18: at [place] [address] bedtime. [facility] Branch prednisoLON 2017-0 Yes 1[drp] 1 Drop Un emanuel E acetate 1 6-15 every 2 ity o f % 13:18: (two) [place] [facility] 54 hours as Medic al suspension needed for Bra nch drops Itching. foLIC acid 2017-0 Yes 2mg Take 2 mg Un emanuel 1 mg tablet 6-15 by mouth ity of 13:18: daily. [place] [address] Medical Branch simvastatin 2017-0 Yes 40mg Take 40 mg [facility] 40 mg 6-15 by mouth ity of tablet 13:18: at [place] [address] bedtime. Medical Branch traZODONE 20170 Yes 100mg Take [facility] 100 mg 6-15 100-200 mg ity of tablet 13:18: by mouth [place] [address] at bedtime Medical as needed Branch for Insomnia. ARIPiprazol 2017 Yes 20mg Take 20 mg [facility] e (ABILIFY) 6-15 by mouth ity of 20 mg 13:18: at [facility] 54 bedtime. Medical Branch suvorexant 2017 Yes 20mg Take 20 mg U nivers (BELSOMRA) 6-15 by mouth ity o f 20 mg Tab 13:18: at [place] [address] bedtime. Medical Branch prednisoLON 2017 Yes 1[drp] 1 Drop Un emanuel E acetate 1 6-15 every 2 ity o f % 13:18: (two) [place] [facility] 54 hours as Medic al suspension needed for Bra nch drops Itching. foLIC acid 2017 Yes 2mg Take 2 mg Un emanuel 1 mg tablet 6-15 by mouth ity of 13:18: daily. [place] [address] Medical Branch simvastatin 2017-0 Yes 40mg Take 40 mg [facility] 40 mg 6-15 by mouth ity of tablet 13:18: at [place] [address] bedtime. Medical Branch traZODONE 2017 Yes 100mg Take [facility] 100 mg 6-15 100-200 mg ity of tablet 13:18: by mouth [place] [address] at bedtime Medical as needed Branch for Insomnia. ARIPiprazol Yes 20mg Take 20 mg [facility] e (ABILIFY) 6-15 by mouth ity of 20 mg 13:18: at [place] [address] bedtime. Medical Branch suvorexant 2017 Yes 20mg Take 20 mg U nivers (BELSOMRA) 6-15 by mouth ity o f 20 mg Tab 13:18: at [place] [address] bedtime. Medical Branch prednisoLON 2017 Yes 1[drp] 1 Drop Un emanuel E acetate 1 6-15 every 2 ity o f % 13:18: (two) [place] [facility] 54 hours as Medic al suspension needed for Bra nch drops Itching. Zetia No Notes: Memoria 08-10 (Same as: l 14:00: Zetia) Dexilant 0 No 60 mg, Memoria 08-10 Route: PO, l 14:00: Drug form: [place] DRC, Daily, Dosing Weight 134.5, kg, Start date: 08/11/15 9:00:00 CDT, Duration: 30 day, Stop date: 09/09/15 9:00:00 CDT Nuvigil 2016-0 No 250 mg, Memoria 7- Route: PO, l 14:00: Drug form: [place] 00 TAB, Daily, Dosing Weight 134.5, kg, Start date: 08/11/15 9:00:00 CDT, Duration: 30 day, Stop date: 09/09/15 9:00:00 CDT Abilify 2016-0 No 20 mg, Memoria 7 Route: PO, l 14:00: Drug form: [place] 00 TAB, Daily, Dosing Weight 134.5, kg, Start date: 08/11/15 9:00:00 CDT, Duration: 30 day, Stop date: 09/09/15 9:00:00 CDT Deplin 2016-0 No 15 mg, Memoria 08-10 Route: PO, l 14:00: Drug form: [place] CAP, Daily, Dosing Weight 134.5, kg, Start [...] (Same as: l 14:00: Zetia) [place] Dexilant 2016-0 No 60 mg, Memoria 7- Route: PO, l 14:00: Drug form: [place] 00 DRC, Daily, Dosing Weight 134.5, kg, Start date: 08/11/15 9:00:00 CDT, Duration: 30 day, Stop date: 09/09/15 9:00:00 CDT Nuvigil 2016-0 No 250 mg, Memoria 08-10 Route: PO, l 14:00: Drug form: [place] 00 TAB, Daily, Dosing Weight 134.5, kg, Start date: 08/11/15 9:00:00 CDT, Duration: 30 day, Stop date: 09/09/15 9:00:00 CDT Abilify 2016-0 No 20 mg, Memoria 08-10 Route: PO, l 14:00: Drug form: [place] 00 TAB, Daily, Dosing Weight 134.5, kg, Start date: 08/11/15 9:00:00 CDT, Duration: 30 day, Stop date: 09/09/15 9:00:00 CDT Deplin 2015-0 No 15 mg, Memoria 08-10 Route: PO, l 14:00: Drug form: [place] CAP, Daily, Dosing Weight 134.5, kg, Start [...] (Same as: l 14:00: Zetia) [place] Dexilant 2016-0 No 60 mg, Memoria 08-10 [...] 08-10 Route: PO, l 14:00: Drug form: [place] 00 TAB, Daily, Dosing Weight 134.5, kg, Start date: 08/11/15 9:00:00 CDT, Duration: 30 day, Stop date: 09/09/15 9:00:00 CDT Deplin 2015-0 No 15 mg, Memoria 08-10 Route: PO, l 14:00: Drug form: [place] 00 CAP, Daily, Dosing Weight 134.5, kg, [...] (Same as: l 14:00: Zetia) [place] Dexilant 2016-0 No 60 mg, Memoria 08-10 Route: PO, l 14:00: Drug form: [place] 00 DRC, Daily, Dosing Weight 134.5, kg, Start date: 08/11/15 9:00:00 CDT, Duration: 30 day, Stop date: 09/09/15 9:00:00 CDT Nuvigil 2015-0 No 250 mg, Memoria 08-10 Route: PO, l 14:00: Drug form: [place] 00 TAB, Daily, Dosing Weight 134.5, kg, Start date: 08/11/15 9:00:00 CDT, Duration: 30 day, Stop date: 09/09/15 9:00:00 CDT Abilify 2015-0 No 20 mg, Memoria 7 Route: PO, l 14:00: Drug form: [place] 00 TAB, Daily, Dosing Weight 134.5, kg, Start date: 08/11/15 9:00:00 CDT, Duration: 30 day, Stop date: 09/09/15 9:00:00 CDT Deplin 2016-0 No 15 mg, Memoria 08-10 Route: PO, l 14:00: Drug form: [place] 00 CAP, Daily, Dosing Weight 134.5, kg, [...] Memoria 08-10 (Same as: l 14:00: Zetia) [place] 00 Dexilant 2015-0 No 60 mg, Memoria [...] 08-10 Route: PO, l 14:00: Drug form: [place] 00 CAP, Daily, Dosing Weight 134.5, kg, Start date: 08/11/15 9:00:00 CDT, Duration: 30 day, Stop date: 09/09/15 9:00:00 CDT Hydrochloro 2016-0 No 1 tab, Alonzo summer thiazide - Route: PO, l 12.5 MG / 14:00: Drug Form: Mikel salgado Lisinopril 00 TAB, 10 MG Oral Dosing Tablet Weight 134.5, kg, Daily, Start date: 08/11/15 9:00:00 CDT, Duration: 30 day, Stop date: 09/09/15 9:00:00 CDT Zetia 2015-0 No Notes: Memoria 08-10 (Same as: l 14:00: Zetia) [place] Dexilant 2016-0 No 60 mg, Memoria 08-10 Route: PO, l 14:00: Drug form: [place] 00 DRC, Daily, Dosing Weight 134.5, kg, Start date: 08/11/15 9:00:00 CDT, Duration: 30 day, Stop date: 09/09/15 9:00:00 CDT Nuvigil 2015-0 No 250 mg, Memoria 08-10 Route: PO, l 14:00: Drug form: [place] 00 TAB, Daily, Dosing Weight 134.5, kg, Start date: 08/11/15 9:00:00 CDT, Duration: 30 day, Stop date: 09/09/15 9:00:00 CDT Abilify 2015-0 No 20 mg, Memoria 08-10 Route: PO, l 14:00: Drug form: [place] 00 TAB, Daily, Dosing Weight 134.5, kg, Start date: 08/11/15 9:00:00 CDT, Duration: 30 day, Stop date: 09/09/15 9:00:00 CDT Deplin 2016-0 No 15 mg, Memoria 7- Route: PO, l 14:00: Drug form: [place] 00 CAP, Daily, Dosing Weight 134.5, kg, [...] 08-10 (Same as: l 14:00: Zetia) Dexilant No 60 mg, Memoria 08-10 [...] 08-10 Route: PO, l 14:00: Drug form: [place] 00 CAP, Daily, Dosing Weight 134.5, kg, [...] 08-10 Route: PO, l 14:00: Drug form: [place] 00 DRC, Daily, Dosing Weight 134.5, kg, [...] 08-10 Route: PO, l 14:00: Drug form: [place] 00 TAB, Daily, Dosing Weight 134.5, kg, [...] 08-10 Route: PO, l 14:00: Drug form: [place] 00 DRC, Daily, Dosing Weight 134.5, kg, [...] CDT Deplin 2016-0 No 15 mg, Memoria 7- Route: PO, l 14:00: Drug form: [place] 00 CAP, Daily, Dosing Weight 134.5, kg, [...] 6-30 Route: PO, l 22:00: Drug form: [place] 00 TAB, BID, Dosing Weight 134.5, kg, Start date: 08/10/15 17:00:00 CDT Savella 2016-0 No 50 mg, Memoria 6-30 Route: PO, l 22:00: Drug form: [place] 00 TAB, BID, Dosing Weight 134.5, kg, Start date: 08/10/15 17:00:00 CDT Savella 2016-0 No 50 mg, [facility]oria 6-30 Route: PO, l 22:00: Drug form: [place] 00 TAB, BID, Dosing Weight 134.5, kg, Start date: 08/10/15 17:00:00 CDT Savella 2016-0 No 50 mg, Memoria 6-30 Route: PO, l 22:00: Drug form: [place] 00 TAB, BID, Dosing Weight 134.5, kg, Start date: 08/10/15 17:00:00 CDT Savella 2016-0 No 50 mg, Memoria 6-30 Route: PO, l 22:00: Drug form: [place] 00 TAB, BID, Dosing Weight 134.5, kg, [...] days Memor ia 6-30 l 17:00: MEDICATION [place] 00 WASTE Product Size: 30 mg Product Wasted: _15__ mg Ketorolac 2016-0 No 4 days Memor ia 6-30 l 17:00: MEDICATION [place] 00 WASTE Product Size: 30 mg Product Wasted: _15__ mg Ketorolac 2016-0 No 4 days Memor ia 6-30 l 17:00: MEDICATION [place] 00 WASTE Product Size: 30 mg Product Wasted: _15__ mg Ketorolac 2016-0 No 4 days Memor ia 6-30 l 17:00: MEDICATION [place] 00 WASTE Product Size: 30 mg Product Wasted: _15__ mg Ketorolac 2015- No 4 days Memor ia 630 l 17:00: MEDICATION [place] 00 WASTE Product Size: 30 mg Product Wasted: _15__ mg Ketorolac No 4 days Memor ia 630 l 17:00: MEDICATION [place] 00 WASTE Product Size: 30 mg Product Wasted: _15__ mg Ketorolac No 4 days Memor ia 630 l 17:00: MEDICATION WASTE Product Size: 30 mg Product Wasted: _15__ mg Ketorolac No 4 days Memor ia 630 l 17:00: MEDICATION WASTE Product Size: 30 mg Product Wasted: _15__ mg Ketorolac No 4 days Memor ia 630 l 17:00: MEDICATION WASTE Product Size: 30 mg Product Wasted: _15__ mg Ketorolac No 4 days Memor ia 630 l 17:00: MEDICATION WASTE Product Size: 30 [...] ____Date Levalbutero No Notes: SEE Memoria l 08-09 RT l 16:29: DOCUMENTAT ION (Same as:Xopenex [...] as: l / 16:29: Duoneb) Ipratropium 00 [place] 0.167 MG/ML Inhalant Solution [DuoNeb] celecoxib Yes [...] summer ne 30 Concentrat l 16:29: ion: [place] 00 4mg/ml Ondansetron No Notes: Alonzo summer [...] ate - (Same as: l 16:29: Robinul) Phenylephri No Notes: Al[place] summer ne 08-09 Same as: l 16:29: Erik-Syneph rine Albuterol No Notes: Memori a 0.833 MG/ML 08-09 (Same as: l / 16:29: Duoneb) Ipratropium 00 [place] 0.167 MG/ML Inhalant Solution [DuoNeb] celecoxib Yes Notes: Memori a -30 NSAID. l 16:29: Please [place] 00 check indication . Not for seizure. (Same As: CeleBREX) 72 HR Yes Notes: Memoria Scopolamine 08-09 Change l 0.0139 16:29: patch [place] MG/HR 00 every 72 Transdermal hours Patch (Same as: Transderm- Scop) Midazolam No Notes: Memori a -30 (Same as: l 16:29: Versed) MEDICATION WASTE Product Size: 2 mg Product Wasted: _1__ mg Ephedrine No Notes: Memori a 30 (Same as: l 16:29: ePHEDrine Sulfate) Flumazenil No Notes: Memor ia - (Same as: l 16:29: Romazicon) Calcium No 1,000 mL, Memor ia Chloride 08-09 Rate: 125 l 0.0014 16:29: ml/hr, [place] MEQ/ML / 00 Infuse Potassium over: 8 [...] Phenergan) Dexamethaso No Notes: Alonzo summer ne -30 Concentrat l 16:29: ion: 4mg/ml Ondansetron No [...] as: l / 16:29: Duoneb) Ipratropium 00 [place] 0.167 MG/ML Inhalant Solution [DuoNeb] celecoxib Yes Notes: Memori a 6-30 NSAID. l 16:29: Please [place] 00 check indication . Not for seizure. (Same As: CeleBREX) 72 HR Yes Notes: [facility]oria Scopolamine 6-30 Change l 0.0139 16:29: patch [place] MG/HR 00 every 72 Transdermal hours Patch (Same as: Transderm- Scop) Midazolam No Notes: Memori a 6-30 (Same as: l 16:29: Versed) MEDICATION WASTE Product Size: 2 mg Product Wasted: _1__ mg Ephedrine No Notes: Memori a 6-30 (Same as: l 16:29: ePHEDrine Sulfate) Flumazenil No Notes: Memor ia 6-30 (Same as: l 16:29: Romazicon) [place] Calcium No 1,000 mL, Memor ia Chloride 6-30 Rate: 125 l 0.0014 16:29: ml/hr, [place] MEQ/ML / 00 Infuse Potassium over: 8 [...] ___ mg Ibuprofen No Notes: Memori a -30 (Same as: l 16:29: Motrin) "Do Not [...] summer ne 08-09 Concentrat l 16:29: ion: [place] 00 4mg/ml [...] as: l / 16:29: Duoneb) Ipratropium 00 [place] 0.167 MG/ML Inhalant Solution [DuoNeb] celecoxib Yes Notes: Memori a -30 NSAID. l 16:29: Please [place] 00 check indication . Not for seizure. (Same As: CeleBREX) 72 HR Yes Notes: [facility]oria Scopolamine 08-09 Change l 0.0139 16:29: patch [place] MG/HR 00 every 72 Transdermal hours Patch (Same as: Transderm- Scop) Midazolam No Notes: Memori a -30 (Same as: l 16:29: Versed) MEDICATION WASTE Product Size: 2 mg Product Wasted: _1__ mg Ephedrine No Notes: Memori a -30 (Same as: l 16:29: ePHEDrine Sulfate) Flumazenil No Notes: Memor ia 30 (Same as: l 16:29: Romazicon) Calcium No 1,000 mL, Memor ia Chloride 08-09 Rate: 125 l 0.0014 16:29: ml/hr, [place] MEQ/ML / 00 Infuse Potassium over: 8 Chloride hr, Route: 0.004 IV, Dosing MEQ/ML / Weight Sodium 134.5 kg, Chloride Total 0.103 Volume: MEQ/ML / 1,000, Sodium Start Lactate date: 0.028 08/10/15 MEQ/ML 11:29:00 Injectable CDT, Solution Duration: 30 day, Stop date: 07/30/16 11:28:00 CDT Hydralazine No Notes: Alonzo summer [...] summer ne 6-30 Concentrat l 16:29: ion: [place] 00 4mg/ml Ondansetron No Notes: Alonzo summer [...] as: l / 16:29: Duoneb) Ipratropium 00 [place] 0.167 MG/ML Inhalant Solution [DuoNeb] celecoxib Yes Notes: Memori a 6-30 NSAID. l 16:29: Please [place] 00 check indication . Not for seizure. [...] ___ mg Ibuprofen No Notes: Memori a -30 (Same as: l 16:29: Motrin) "Do Not [...] summer ne 30 Concentrat l 16:29: ion: 00 4mg/ml Ondansetron No Notes: Alonzo summer [...] ne -30 Same as: l 16:29: Erik-Syneph [place] 00 rine Albuterol No Notes: Memori a 0.833 MG/ML -30 (Same as: l / 16:29: Duoneb) Ipratropium 00 [place] 0.167 MG/ML Inhalant Solution [DuoNeb] celecoxib Yes Notes: Memori a 6-30 NSAID. l 16:29: Please check indication . Not for seizure. (Same As: CeleBREX) 72 HR Yes Notes: Memoria Scopolamine -30 Change l 0.0139 16:29: patch [place] MG/HR 00 every 72 Transdermal hours Patch [...] 6-30 Rate: 125 l 0.0014 16:29: ml/hr, [place] MEQ/ML / 00 Infuse Potassium over: 8 [...] en 6-30 Infuse l 16:29: over 15 [place] 00 minutes Do not exceed 4gm/day of [...] as: l / 16:29: Duoneb) Ipratropium 00 [place] 0.167 MG/ML Inhalant Solution [DuoNeb] celecoxib Yes Notes: Memori a 6-30 NSAID. l 16:29: Please check indication . Not for seizure. (Same As: CeleBREX) 72 HR Yes Notes: [facility] Scopolamine 6-30 Change l 0.0139 16:29: patch [place] MG/HR 00 every 72 Transdermal hours Patch [...] mine 08-09 (Same as: l 16:29: Benadryl) [place] 00 Albuterol No Notes: SEE Me moria 0.83 MG/ML 6-30 RT l Inhalant 16:29: DOCUMENTAT Her brito Solution 00 ION (Same as: Proventil) Atropine No Notes: Mem oria 6-30 MEDICATION l 16:29: WASTE [place] 00 Product Size: 0.4 mg Product Wasted: _0.2__ mg Glycopyrrol No Notes: Alonzo summer ate 6-30 (Same as: l 16:29: Robinul) [place] 00 Phenylephri No Notes: Alonzo summer ne 6-30 Same as: l 16:29: Erik-Syneph [place] 00 rine Albuterol No Notes: Memori a 0.833 MG/ML 6-30 (Same as: l / 16:29: Duoneb) Ipratropium 00 [place] 0.167 MG/ML Inhalant Solution [DuoNeb] celecoxib Yes [...] ia 6-30 (Same as: l 16:29: Romazicon) [place] 00 Calcium No 1,000 mL, Memor ia [...] temperatur e. Expires in days from ____Date Fred No Notes: SEE Memoria l 6-30 RT l 16:29: DOCUMENTAT [place] 00 ION (Same as:Xopenex ) Non-Formul george [...] ne 30 Concentrat l 16:29: ion: [place] 00 4mg/ml [...] -30 (Same as: l / 16:29: Duoneb) [place] Ipratropium 00 [place] 0.167 MG/ML Inhalant Solution [DuoNeb] celecoxib Yes Notes: Memori a 6-30 NSAID. l 16:29: Please [place] 00 check indication . Not for seizure. [...] ne 6-30 Same as: l 16:29: Erik-Syneph [place] 00 rine Albuterol No Notes: Memori a 0.833 MG/ML -30 (Same as: l / 16:29: Duoneb) Ipratropium 00 [place] 0.167 MG/ML Inhalant Solution [DuoNeb] celecoxib Yes Notes: Memori a 6-30 NSAID. l 16:29: Please [place] 00 check indication . Not for seizure. (Same As: CeleBREX) 72 HR Yes Notes: Memoria Scopolamine 6-30 Change l 0.0139 16:29: patch [place] MG/HR 00 every 72 Transdermal hours Patch (Same as: Transderm- Scop) Midazolam No Notes: Memori a 6-30 (Same as: l 16:29: Versed) MEDICATION WASTE Product Size: 2 mg Product Wasted: _1__ mg Ephedrine No Notes: Memori a 6-30 (Same as: l 16:29: ePHEDrine [place] Sulfate) Flumazenil No Notes: Memor ia 6-30 [...] 6-30 not exceed l 16:24: 4 gm/day. [place] 00 (Same as: Tylenol) Hydromorpho No Notes: Alonzo summer ne 6-30 (Same as: l 16:24: Dilaudid) Acetaminoph No Notes: Alonzo summer en 325 MG / 6-30 (Same as: l Hydrocodone 16:24: [place] Judith nn Bitartrate 00 325/5) Do 5 [...] ne 6-30 (Same as: l 16:24: Dilaudid) [place] 00 Acetaminoph No Notes: Alonzo summer en 325 MG / 6-30 (Same as: l Hydrocodone 16:24: [place] Judith nn Bitartrate 00 325/5) Do 5 [...] / 6-30 (Same as: l Hydrocodone 16:24: [place] Judith nn Bitartrate 00 325/5) Do 5 MG Oral not exceed Tablet 4gm/day of acetaminop hen. Tramadol No Notes: Not Mem oria 6-30 to exceed l 16:24: 400mg/day. [place] 00 (Same As: Ultram) Acetaminoph No Notes: Do M emoria en 6-30 not exceed l 16:24: 4 gm/day. [place] 00 (Same as: Tylenol) Hydromorpho No Notes: Alonzo summer ne 6-30 (Same as: l 16:24: Dilaudid) [place] 00 Acetaminoph No Notes: Alonzo summer en 325 MG / 6-30 (Same as: l Hydrocodone 16:24: [place] Judith nn Bitartrate 00 325/5) Do 5 [...] / 6-30 (Same as: l Hydrocodone 16:24: [place] Judith nn Bitartrate 00 325/5) Do 5 [...] / 6-30 (Same as: l Hydrocodone 16:24: [place] Judith nn Bitartrate 00 325/5) Do 5 MG Oral not exceed Tablet 4gm/day of acetaminop hen. Tramadol No Notes: Not Mem oria 6-30 to exceed l 16:24: 400mg/day. (Same As: Ultram) Acetaminoph No Notes: Do M emoria en 6-30 not exceed l 16:24: 4 gm/day. (Same as: Tylenol) Hydromorpho No Notes: Alonzo summer ne 6-30 (Same as: l 16:24: Dilaudid) [place] 00 Acetaminoph No Notes: Alonzo summer en 325 MG / 6-30 (Same as: l Hydrocodone 16:24: [place] Judith nn Bitartrate 00 325/5) Do 5 [...] / 6-30 (Same as: l Hydrocodone 16:24: [place] Judith nn Bitartrate 00 325/5) Do 5 [...] / 6-30 (Same as: l Hydrocodone 16:24: [place] Judith nn Bitartrate 00 325/5) Do 5 MG Oral not exceed Tablet 4gm/day of acetaminop hen. Tramadol No Notes: Not Mem oria 6-30 to exceed l 16:24: 400mg/day. (Same As: Ultram) Acetaminoph No Notes: Do M emoria en 6-30 not exceed l 16:24: 4 gm/day. [place] 00 (Same as: Tylenol) Hydromorpho No Notes: Alonzo summer ne 6-30 (Same as: l 16:24: Dilaudid) Acetaminoph No Notes: Alonzo summer en 325 MG / 6-30 (Same as: l Hydrocodone 16:24: [place] Judith nn Bitartrate 00 325/5) Do 5 MG Oral not exceed Tablet 4gm/day of acetaminop hen. Tramadol No Notes: Not Mem oria 6-30 to exceed l 16:24: 400mg/day. (Same As: Ultram) ondansetron No Route: IV, Memoria (ANES) 6-30 Drug form: l 16:11: INJ, ONCE, Stop date: 08/10/15 11:11:00 CDT ondansetron No Route: IV, Memoria (ANES) 6-30 Drug form: l 16:11: INJ, ONCE, Stop date: 08/10/15 11:11:00 CDT ondansetron No Route: IV, Memoria (ANES) 6-30 Drug form: l 16:11: INJ, ONCE, Stop date: 08/10/15 11:11:00 CDT ondansetron 0 No Route: IV, Memoria (ANES) 6-30 Drug form: l 16:11: INJ, ONCE, Stop date: 08/10/15 11:11:00 CDT ondansetron No Route: IV, Memoria (ANES) 6-30 Drug form: l 16:11: INJ, ONCE, Stop date: 08/10/15 11:11:00 CDT ondansetron 0 No Route: IV, Memoria (ANES) 6-30 Drug form: l 16:11: INJ, ONCE, Stop date: 08/10/15 11:11:00 CDT ondansetron No Route: IV, Memoria (ANES) 6-30 Drug form: l 16:11: INJ, ONCE, Stop date: 08/10/15 11:11:00 CDT ondansetron No Route: IV, Memoria (ANES) 6-30 [...] 6-30 Drug form: l 15:45: SOLN, [place] ONCE, Stop date: 08/10/15 10:45:00 CDT succinylcho [...] 6-30 Drug form: l 15:45: SOLN, [place] ONCE, Stop date: 08/10/15 10:45:00 CDT succinylcho 0 No Route: IV, Memoria line (ANES) 6-30 [...] (ANES) 6-30 Drug form: l 15:45: SOLN, [place] 00 ONCE, Stop date: 08/10/15 10:45:00 CDT [...] 6-30 Drug form: l 15:45: INJ, ONCE, [place] 00 Stop date: 08/10/15 10:45:00 CDT midazolam 2016-0 No Route: IV, Me moria (ANES) 6-30 Drug form: l 15:45: SOLN, [place] ONCE, Stop date: 08/10/15 10:45:00 CDT succinylcho [...] (ANES) 6-30 Drug form: l 15:45: SOLN, [place] 00 ONCE, Stop date: 08/10/15 10:45:00 CDT [...] 2015-0 No Route: IV, Mem oria (ANES) 630 Drug form: l 15:45: INJ, ONCE, Stop date: 08/10/15 10:45:00 CDT midazolam 2016-0 No Route: IV, Me moria (ANES) 630 Drug form: l 15:45: SOLN, [place] 00 ONCE, Stop date: 08/10/15 10:45:00 CDT ePHEDrine 0 No Route: IV, Me moria (ANES) 6 Drug form: l 15:40: INJ, ONCE, Stop date: 08/10/15 10:40:00 CDT ePHEDrine 2015-0 No Route: IV, Me moria (ANES) 6 Drug form: l 15:40: INJ, ONCE, Stop [...] ONCE, Stop date: 08/10/15 10:40:00 CDT ceFAZolin [id number] No Route: IV, Me moria (ANES) 6-30 [...] INJ (ANES) 6-30 Total l 14:51: Volume: [place] 00 1,000, Start date: 08/10/15 9:51:00 CDT, [...] INJ (ANES) 6-30 Total l 14:51: Volume: [place] 00 1,000, Start date: 08/10/15 9:51:00 CDT, Stop date: 08/10/15 10:51:00 CDT LR 1000 mL No Route: IV, M emoria INJ (ANES) 6-30 Total l 14:51: Volume: [place] 00 1,000, Start date: 08/10/15 9:51:00 CDT, Stop date: 08/10/15 10:51:00 CDT LR 1000 mL No Route: IV, M emoria INJ (ANES) 6-30 Total l 14:51: Volume: [place] 00 1,000, Start date: 08/10/15 9:51:00 CDT, Stop date: 08/10/15 10:51:00 CDT LR 1000 mL No Route: IV, M emoria INJ (ANES) 6-30 Total l 14:51: Volume: [place] 00 1,000, Start date: 08/10/15 9:51:00 CDT, [...] Roll in l Human 13:01: palms of [place] 00 hands gently; Do not shake vigorously [...] 6-30 Rate: 25 l 0.0014 13:01: ml/hr, [place] MEQ/ML / 00 Infuse Potassium over: 40 [...] 6-30 Same as: l 0.09 13:01: [place] MG/ACTUAT 00 HFA WASTE: Metered Aerosol - Dose Return to [facility] [place] No 1,000 mL, Memor ia Chloride 6-30 Rate: 25 l 0.0014 13:01: ml/hr, [place] MEQ/ML / 00 Infuse Potassium over: 40 [...] Dose Aerosol - Inhaler Return to Pharmacy [place] No 1,000 mL, Memor ia Chloride 6-30 Rate: 25 l 0.0014 13:01: ml/hr, [place] MEQ/ML / 00 Infuse Potassium over: 40 [...] e. Expires in days from ____Date 200 ACTU No Notes: Memor ia Albuterol 6-30 Same as: l 0.09 13:01: [place] MG/ACTUAT 00 HFA WASTE: Metered Aerosol - Dose Return to [facility] [place] No 1,000 mL, Memor ia Chloride 6-30 [...] Roll in l Human 13:01: palms of [place] 00 hands gently; Do not shake vigorously . (Same as: NovoLOG) "single patient use only" WASTE: F/P - Black; E - Municipal Trash Bin Stable for 28 days at room temperatur e. Expires in days from ____Date 200 ACTUAT No Notes: Memor ia Albuterol 6-30 Same as: l 0.09 13:01: [place] MG/ACTUAT 00 HFA WASTE: Metered Aerosol - [...] 6-30 Same as: l 0.09 13:01: [place] MG/ACTUAT 00 HFA WASTE: Metered Aerosol - Dose Return to [facility] [place] No 1,000 mL, Memor ia Chloride 6-30 Rate: 25 l 0.0014 13:01: ml/hr, [place] MEQ/ML / 00 Infuse Potassium over: 40 [...] 6-30 Same as: l 0.09 13:01: [place] MG/ACTUAT 00 HFA WASTE: Metered Aerosol - [...] Roll in l Human 13:01: palms of [place] 00 hands gently; Do not shake vigorously [...] 6-30 Rate: 25 l 0.0014 13:01: ml/hr, [place] MEQ/ML / 00 Infuse Potassium over: 40 [...] Roll in l Human 13:01: palms of [place] 00 hands gently; Do not shake vigorously [...] Memoria 6-30 Same as: l 11:00: Ancef [place] 00 BD Normal No Notes: Memori a Saline 6-30 (Same as: l Flush 11:00: BD [place] 00 Posiflush) Ancef No Notes: Memoria 6-30 Same as: l 11:00: Ancef [place] 00 BD Normal No Notes: Memori a Saline 6-30 (Same as: l Flush 11:00: BD [place] 00 Posiflush) Ancef No Notes: Memoria 6-30 Same as: l 11:00: Ancef [place] 00 BD Normal 0 No Notes: Memori a Saline 6-30 (Same as: l Flush 11:00: BD [place] 00 Posiflush) Ancef No Notes: Memoria 6-30 Same as: l 11:00: Ancef [place] 00 BD Normal 0 No Notes: Memori a Saline 6-30 (Same as: l Flush 11:00: BD [place] 00 Posiflush) Ancef No Notes: Memoria 6-30 Same as: l 11:00: Ancef [place] 00 BD Normal No Notes: Memori a Saline 6-30 (Same as: l Flush 11:00: BD [place] 00 Posiflush) Ancef No Notes: Memoria 6-30 Same as: l 11:00: Ancef [place] 00 BD Normal No Notes: Memori a Saline 6-30 (Same as: l Flush 11:00: BD [place] 00 Posiflush) Ancef No Notes: Memoria 6-30 Same as: l 11:00: Ancef [place] 00 BD Normal No Notes: Memori a Saline 6-30 (Same as: l Flush 11:00: BD [place] 00 Posiflush) Ancef No Notes: Memoria 6-30 Same as: l 11:00: Ancef [place] 00 BD Normal No Notes: Memori a Saline 6-30 (Same as: l Flush 11:00: BD [place] 00 Posiflush) Ancef No Notes: Memoria 6-30 Same as: l 11:00: Ancef [place] 00 BD Normal No Notes: Memori a Saline 6-30 (Same as: l Flush 11:00: BD [place] 00 Posiflush) Ancef No Notes: Memoria 6-30 Same as: l 11:00: Ancef [place] 00 Deplin 15 Yes 15 mg = [...] tab, PO, l Tablet 14:58: Daily, # [place] [Nuvigil] 00 30 tab, 0 Refill(s) armodafinil Yes 250 mg = 1 Memoria 250 MG Oral 6-23 tab, PO, l Tablet 14:58: Daily, # [place] [Nuvigil] 00 30 tab, 0 Refill(s) armodafinil Yes 250 mg = 1 Memoria 250 MG Oral 6-23 tab, PO, l Tablet 14:58: Daily, # [place] [Nuvigil] 00 30 tab, 0 Refill(s) armodafinil Yes 250 mg = 1 Memoria 250 MG Oral 6-23 tab, PO, l Tablet 14:58: Daily, # [place] [Nuvigil] 00 30 tab, 0 Refill(s) armodafinil Yes 250 mg = 1 Memoria 250 MG Oral 6-23 tab, PO, l Tablet 14:58: Daily, # [place] [Nuvigil] 00 30 tab, 0 Refill(s) armodafinil Yes 250 mg = 1 Memoria 250 MG Oral 6-23 tab, PO, l Tablet 14:58: Daily, # [place] [Nuvigil] 00 30 tab, 0 Refill(s) armodafinil Yes 250 mg = 1 Memoria 250 MG Oral 6-23 tab, PO, l Tablet 14:58: Daily, # [place] [Nuvigil] 00 30 tab, 0 Refill(s) armodafinil Yes 250 mg = 1 Memoria 250 MG Oral 6-23 tab, PO, l Tablet 14:58: Daily, # [place] [Nuvigil] 00 30 tab, 0 Refill(s) armodafinil [...] tab, PO, l Tablet 14:56: Daily, 0 [place] [Zetia] 00 Refill(s) Milnacipran Yes 50 mg [...] tab, PO, l Tablet 14:56: Daily, 0 [place] [Zetia] 00 Refill(s) Milnacipran 2016-0 Yes 50 [...] tab, PO, l Tablet 14:56: Daily, 0 [place] [Zetia] 00 Refill(s) Milnacipran 2016-0 Yes 50 [...] Tablet 00 tab, 3 [Savella] Refill(s) aripiprazol 20160 Yes 20 mg = 1 M emoria [...] l 14:55: Refill(s) [place] 00 0.65 ML 2015- Yes 2 mg, [...] FlexTouch 6-23 Daily, 0 l 14:55: Refill(s) [place] 00 0.65 ML 2015-0 Yes 2 mg, [...] FlexTouch 6-23 Daily, 0 l 14:55: Refill(s) [place] 00 0.65 ML Yes 2 mg, Memoria [...] l 14:55: Refill(s) [place] 00 0.65 ML 0 Yes 2 mg, [...] FlexTouch 6-23 Daily, 0 l 14:55: Refill(s) [place] 00 0.65 ML 2016-0 Yes 2 mg, [...] FlexTouch 6-23 Daily, 0 l 14:55: Refill(s) [place] 00 0.65 ML 2015-0 Yes 2 mg, [...] FlexTouch 6-23 Daily, 0 l 14:55: Refill(s) [place] 00 0.65 ML 2015-0 Yes 2 mg, [...] Yes IV, q4wk, Mem oria 12.5 MG/ML 623 0 l Injectable 14:54: Refill(s) He rmann [...] Lisinopril 00 10 MG Oral Tablet solifenacin 2016 Yes 10 mg = 1 M [...] Lisinopril 00 10 MG Oral Tablet solifenacin 2016-0 Yes 10 mg = 1 M emoria succinate 6-23 tab, PO, l 10 MG Oral 14:54: Daily, 0 Her brito Tablet 00 Refill(s) [VESICARE] pilocarpine 2016-0 Yes 7.5 mg = 1 [...] roquine 6-23 PO, Daily, l 14:53: 0 [place] 00 Refill(s) pilocarpine 2016-0 Yes 7.5 mg [...] roquine 6-23 PO, Daily, l 14:53: 0 [place] 00 Refill(s) pilocarpine 2016-0 Yes 7.5 mg [...] roquine 6-23 PO, Daily, l 14:53: 0 [place] 00 Refill(s) pilocarpine 2016-0 Yes 7.5 mg [...] roquine 6-23 PO, Daily, l 14:53: 0 [place] 00 Refill(s) pilocarpine 2016-0 Yes 7.5 mg [...] roquine 6-23 PO, Daily, l 14:53: 0 [place] 00 Refill(s) pilocarpine 2016-0 Yes 7.5 mg [...] roquine 6-23 PO, Daily, l 14:53: 0 [place] 00 Refill(s) pilocarpine 2016-0 Yes 7.5 mg [...] Memori a e 6-23 Refill(s) l 14:52: [place] 00 Methotrexat Yes INTRATHECA Memoria e Sodium, 6-23 L, ONCE, 0 l Preservativ 14:52: Refill(s) H ermann e Free 25 00 mg/mL injectable solution celecoxib Yes 200 mg = 1 Me moria 200 MG Oral 6-23 cap, PO, l Capsule 14:52: BID, 0 [place] [Celebrex] 00 Refill(s) Methotrexat Yes 0 Memori a e 6-23 Refill(s) l 14:52: [place] 00 Methotrexat Yes INTRATHECA Memoria e Sodium, [...] BID, 0 [place] [Celebrex] 00 Refill(s) Methotrexat 2016 Yes 0 Memori a e 6-23 Refill(s) l 14:52: [place] 00 Methotrexat 0 Yes INTRATHECA Memoria e Sodium, 6-23 L, ONCE, 0 l Preservativ 14:52: Refill(s) H ermann e Free 25 00 mg/mL injectable solution celecoxib Yes 200 mg = 1 Me moria 200 MG Oral 6-23 cap, PO, l Capsule 14:52: BID, 0 [place] [Celebrex] 00 Refill(s) Methotrexat 2016 Yes 0 Memori a e 6-23 Refill(s) l 14:52: [place] Methotrexat 0 Yes INTRATHECA Memoria e Sodium, 6-23 L, ONCE, 0 l Preservativ 14:52: Refill(s) H ermann e Free 25 00 mg/mL injectable solution celecoxib Yes 200 mg = 1 Me moria 200 MG Oral 6-23 cap, PO, l Capsule 14:52: BID, 0 [place] [Celebrex] 00 Refill(s) Methotrexat 0 Yes 0 Memori a e 6-23 Refill(s) l 14:52: [place] 00 Methotrexat 0 Yes INTRATHECA Memoria e Sodium, 6-23 L, ONCE, 0 l Preservativ 14:52: Refill(s) H ermann e Free 25 00 mg/mL injectable solution celecoxib Yes 200 mg = 1 Me moria 200 MG Oral 6-23 cap, PO, l Capsule 14:52: BID, 0 [place] [Celebrex] 00 Refill(s) Methotrexat 0 Yes 0 [...] cap, PO, l Capsule 14:52: BID, 0 [place] [Celebrex] 00 Refill(s) Methotrexat Yes 0 Memori a e 6-23 Refill(s) l 14:52: [place] 00 Methotrexat Yes INTRATHECA Memoria e Sodium, [...] tab, PO, l Tablet 14:51: Daily, 0 [place] 00 Refill(s) Folic Acid Yes 1 mg = 1 Mem oria 1 MG Oral 6-23 tab, PO, l Tablet 14:51: Daily, 0 [place] 00 Refill(s) Folic Acid Yes 1 mg = 1 Mem oria 1 MG Oral 6-23 tab, PO, l Tablet 14:51: Daily, 0 [place] 00 Refill(s) Folic Acid Yes 1 mg = 1 Mem oria 1 MG Oral 6-23 tab, PO, l Tablet 14:51: Daily, 0 [place] 00 Refill(s) Folic Acid Yes 1 mg = 1 Mem oria 1 MG Oral 6-23 tab, PO, l Tablet 14:51: Daily, 0 [place] 00 Refill(s) Folic Acid Yes 1 mg = 1 Mem oria 1 MG Oral 6-23 tab, PO, l Tablet 14:51: Daily, 0 [place] 00 Refill(s) Folic Acid Yes 1 mg = 1 Mem oria 1 MG Oral 6-23 tab, PO, l Tablet 14:51: Daily, 0 [place] 00 Refill(s) Folic Acid Yes 1 mg = 1 Mem oria 1 MG Oral 6-23 tab, PO, l Tablet 14:51: Daily, 0 [place] 00 Refill(s) Folic Acid Yes 1 mg = 1 Mem oria 1 MG Oral 6-23 tab, PO, l Tablet 14:51: Daily, 0 [place] 00 Refill(s) Celebrex Celebrex Yes Luciano 1 capsule Common [place] with food [facility] Cyclobenzap Cyclobenzap Yes Luciano 1 tablet Common rine HCl rine HCl [place] as needed [facility] Zestoretic Zestoretic Yes Luciano 1 tablet Common Travis [facility] Abilify Abilify Yes [place] 1 tablet Com mon Travis [facility] Restasis Restasis Yes Luciano 1 drop Com mon [place] into [facility] eye [facility] Humalog Humalog Yes Luciano as Common [place] directed [facility] Plaquenil Plaquenil Yes Luciano 1 tablet Common [place] with food [facility] or milk [facility] Iron Iron Yes Luciano 1 tablet Common Travis [facility] Leflunomide Leflunomide Yes [place]iano 1 tablet Common Travis [facility] Vistaril Vistaril Yes Luciano 1 capsule Common [place] as needed [facility] Bydureon Bydureon Yes [place]iano not Commo n [place] defined [facility] ProAir HFA ProAir HFA Yes Luciano 2 puffs as Common [place] needed [facility] Pilocarpine Pilocarpine Yes Luciano 1 tablet Common HCl HCl Travis [facility] Savella Savella Yes Luciano 2 tablets Co mmon Travis [facility] Guaifenesin Guaifenesin Yes Luciano 10 ml as Common -Codeine -Codeine Travis needed [facility] Atorvastati Atorvastati Yes Luciano 1 tablet Common n Calcium n Calcium Travis [facility] Omeprazole Omeprazole Yes Luciano 1 capsule Common Travis [facility] Breo Breo Yes Luciano 1 puff Common Ellipta Ellipta Travis [facility] Trazodone Trazodone Yes Luciano 1 tablet Common HCl HCl [place] at bedtime [facility] Toujeo Toujeo Yes Luciano not Common SoloStar SoloStar [place] defined [facility] Abilify 20 Abilify 20 Yes 1 po QHS UT MG Oral MG Oral Physici Tablet Tablet ans Tolterodine Tolterodine Yes Luciano 1 capsule Common Tartrate ER Tartrate ER Travis [facility] Hemocyte Hemocyte Yes Luciano 1 capsule Common Plus Plus Travis [facility] Folic Acid Folic Acid Yes Luciano 1 tablet Common Travis [facility] MetFORMIN MetFORMIN Yes Luciano 1 tablet Common HCl ER HCl ER [place] at night [facility] Savella 50 Savella 50 Yes 1 po QHS UT MG Oral MG Oral Physici Tablet Tablet ans Metformin Metformin Yes Luciano 1 tablet Common HCl HCl [place] with a Spirit meal in - [facility] Saphris Saphris Yes Luciano 1 tablet Com mon [place] under the [facility] tongue and - [facility] allow to [facility] Paxil Paxil Yes Luciano 1 tablet Common [place] in the [facility] Colace Colace Yes Luciano 1 capsule Comm on [place] as needed [facility] Leflunomide Leflunomide No 1{table QD [...] Zestoretic 20-12.5 MG 20-12.5 MG 20-12.5 MG Plavix 75 Plavix 75 Yes UT MG Oral MG Oral Physici Tablet Tablet ans Atorvastati Atorvastati No 1{table QD Atorvastat n [...] 40 MG 40 MG le} 40 MG Simvastatin Simvastatin Yes U T 40 MG Oral 40 MG Oral Phy sici Tablet Tablet ans Zestoretic Zestoretic No 1{table QD Zestoretic 20-12.5 [...] MG 200 MG le_with 200 MG _food} SulfaSALAzi SulfaSALAzi Yes U T ne 500 MG ne 500 MG Physi ci Oral Tablet Oral Tablet a ns Cyclobenzap Cyclobenzap No 1{table TID Cyclobenza rine [...] % fected_ eye} Nuvigil Nuvigil No Nuvigil Leflunomide Leflunomide Yes U T 20 MG Oral 20 MG Oral Phy sici Tablet Tablet ans Plaquenil Plaquenil No 1{table QD Plaquenil 200 MG 200 MG t_with_ 200 MG food_or _milk} HumaLOG 100 HumaLOG 100 No HumaLOG UNIT/ML UNIT/ML 100 UNIT/ML guaiFENesin guaiFENesin No 10{ml_a guaiFENesi -Codeine -Codeine s_neede n-Codeine 100-10 100-10 d} 100-10 MG/5ML MG/5ML MG/5ML [place] metFORMIN metFORMIN No QD metFORMIN HCl 1000 [...] 100 MG t_at_be HCl 100 MG dtime} CeleBREX CeleBREX Yes UT CAPS CAPS Physici ans Leflunomide Leflunomide No 1{table QD Leflunomid 20 [...] 40 MG 40 MG le} 40 MG Hydroxychlo Hydroxychlo Yes U T roquine roquine Physici Sulfate 200 Sulfate 200 a ns MG Oral MG Oral Tablet Tablet Zestoretic Zestoretic No 1{table QD Zestoretic 20-12.5 [...] 7.5 MG t} e HCl 7.5 MG Folic Acid Folic Acid Yes UT 1 MG Oral 1 MG Oral Physi ci Tablet Tablet ans Bydureon 2 Bydureon 2 No Bydureon 2 [...] HumaLOG UNIT/ML UNIT/ML 100 UNIT/ML Pilocarpine Pilocarpine Yes U T HCl - 7.5 HCl - 7.5 Physi ci MG Oral MG Oral ans Tablet Tablet guaiFENesin guaiFENesin No 10{ml_a guaiFENesi -Codeine -Codeine s_neede n-Codeine 100-10 100-10 d} 100-10 MG/5ML MG/5ML MG/5ML [place] metFORMIN metFORMIN No QD metFORMIN HCl 1000 [...] 100 MG t_at_be HCl 100 MG dtime} HydrOXYzine HydrOXYzine Yes U T HCl - [...] Colace 100 MG MG le_as_n MG eeded} TraZODone TraZODone Yes UT HCl TABS HCl TABS Physici ans Omeprazole Omeprazole No 1{capsu QD Omeprazole 40 MG 40 MG le} 40 MG Zestoretic Zestoretic No 1{table QD Zestoretic 20-12.5 MG 20-12.5 MG t} 20-12.5 MG Toujeo Toujeo No Toujeo SoloStar SoloStar SoloStar 300 unit/mL 300 unit/mL 300 unit/mL Zoloft 50 Zoloft 50 No 1{table QD Zoloft 50 MG MG t} MG Tresiba Tresiba Yes UT FlexTouch FlexTouch Physi ci SOPN SOPN ans Savella 50 Savella 50 No 2{table BID [...] MG _the_to ngue_an d_allow _to_dis solve} Bydureon Bydureon Yes UT PEN PEN Physici ans Restasis Restasis No 1{drop_ BID Restasis 0.05 % 0.05 % into_af 0.05 % fected_ eye} Nuvigil Nuvigil No Nuvigil Plaquenil Plaquenil No 1{table QD Plaquenil 200 MG 200 MG t_with_ 200 MG food_or _milk} HumaLOG 100 HumaLOG 100 No HumaLOG UNIT/ML UNIT/ML 100 UNIT/ML guaiFENesin guaiFENesin No 10{ml_a guaiFENesi -Codeine -Codeine s_neede n-Codeine 100-10 100-10 d} 100-10 MG/5ML MG/5ML MG/5ML [place] metFORMIN metFORMIN No QD metFORMIN HCl 1000 [...] QD Abilify 20 MG MG t} MG [place] Plaquenil Plaquenil No 1{table QD Plaquenil 200 [...] QD Abilify 20 MG MG t} MG [place] Plaquenil Plaquenil No 1{table QD Plaquenil 200 [...] QD Abilify 20 MG MG t} MG [place] Plaquenil Plaquenil No 1{table QD Plaquenil 200 [...] QD Abilify 20 MG MG t} MG [place] Plaquenil Plaquenil No 1{table QD Plaquenil 200 [...] 100 No HumaLOG UNIT/ML UNIT/ML 100 UNIT/ML [place] Breo Breo No 1{puff} QD Breo Ellipta [...] 100 No HumaLOG UNIT/ML UNIT/ML 100 UNIT/ML [place] Breo Breo No 1{puff} QD Breo Ellipta [...] 100 No HumaLOG UNIT/ML UNIT/ML 100 UNIT/ML [place] Breo Breo No 1{puff} QD Breo Ellipta [...] 100 No HumaLOG UNIT/ML UNIT/ML 100 UNIT/ML [place] Breo Breo No 1{puff} QD Breo Ellipta [...] 200 MG t_with_ 200 MG food_or _milk} [place] Omeprazole Omeprazole No 1{capsu QD Omeprazole 40 [...] Zestoretic 20-12.5 MG 20-12.5 MG 20-12.5 MG [place] Iron 325 Iron 325 No 1{table QD [...] Zestoretic 20-12.5 MG 20-12.5 MG 20-12.5 MG [place] No [place] Iron 325 Iron 325 No 1{table QD [...] t_under MG _the_to ngue_an d_allow _to_dis solve} [place] Zoloft 50 Zoloft 50 No 1{table QD [...] Ellipta 200-25 200-25 200-25 MCG/INH MCG/INH MCG/INH [place] metFORMIN metFORMIN No QD metFORMIN HCl ER [...] 100-10 100-10 d} 100-10 MG/5ML MG/5ML MG/5ML [place] Folic Acid Folic Acid No 1{table QD [...] 100-10 100-10 d} 100-10 MG/5ML MG/5ML MG/5ML [place] No [place] Folic Acid Folic Acid No 1{table QD [...] [facility]pleted [facility] (Triamcinolone) 14:42:00 - [facility] 2019-11-02 Completed [facility] (Triamcinolone) (Triamcinolone) 14:42:00 - [facility] 2019-11-02 Completed [facility] (Triamcinolone) (Triamcinolone) 14:42:00 - [facility] 2019-11-02 Completed [facility] (Triamcinolone) (Triamcinolone) 14:42:00 - [facility] 2019-11-02 Completed [facility] (Triamcinolone) (Triamcinolone) 14:42:00 - [facility] 2019-11-02 Completed [facility] (Triamcinolone) (Triamcinolone) 14:42:00 - [facility] 2019-11-02 Completed [facility] (Triamcinolone) (Triamcinolone) 14:42:00 - [facility] 2019-11-02 Completed [facility] (Triamcinolone) (Triamcinolone) 14:42:00 - [facility] 2019-11-02 Completed [facility] (Triamcinolone) (Triamcinolone) 14:42:00 - [facility] Vital Signs Vital Name Observation Time Observation Value Comments Source height 2022-02-08 71 [in_i] [facility] - 15:20[facility]00 [facility] weight 2022-02-08 240 [lb_av] [facility] - 15:20:00 [facility] bmi 2022-02-08 33.47 kg/m2 [facility] - 15:20:00 [facility] height 2022-01-16 71 [in_i] [facility] - 10:40:00 [facility] weight 2022-01-16 239.6 [lb_av] [facility] - 10:40:00 [facility] temperature 2022-01-16 97.5 [degF] [facility] - 10:40:00 [facility] bmi 2022-01-16 33.41 kg/m2 [facility] - 10:40:00 [facility] oximetry 2022-01-16 97 % [facility] - 10:40:00 [facility] respiratory rate 2022-01-16 17 /min [facility] - 10:40:00 [facility] blood pressure 2022-01-16 121 mm[Hg] [facility] - systolic 10:40:00 [facility] blood pressure 2022-01-16 68 mm[Hg] [facility] - diastolic 10:40:00 [facility] Systolic blood 2021-10-31 126 mm[Hg] [facility] pressure 19:16:00 Diastolic blood 2021-10-31 84 mm[Hg] [facility] pressure 19:16:00 Body height 2021-10-31 180.3 cm [facility] 19:16:00 Body weight 2021-10-31 112.038 kg [facility] 19:16:00 BMI 2021-10-31 34.45 kg/m2 [facility] 19:16:00 Systolic blood 2021-10-24 118 mm[Hg] [facility] pressure 18:53:00 Diastolic blood 2021-10-24 68 mm[Hg] [facility] pressure 18:53:00 Body temperature 2021-10-24 36.44 Teresa [facility] 18:53:00 Body height 2021-10-24 180.3 cm [facility] 18:53:00 Body weight 2021-10-24 112.401 kg [facility] 18:53:00 BMI 2021-10-24 34.56 kg/m2 [facility] 18:53:00 height 2021-10-17 71 [in_i] [facility] - 11:20:00 [facility] weight 2021-10-17 230 [lb_av] [facility] - 11:20:00 [facility] temperature 2021-10-17 97.6 [degF] [facility] - 11:20:00 [facility] bmi 2021-10-17 32.07 kg/m2 [facility] - 11:20:00 [facility] oximetry 2021-10-17 97 % [facility] - 11:20:00 [facility] respiratory rate 2021-10-17 16 /min [facility] - 11:20:00 [facility] blood pressure 2021-10-17 132 mm[Hg] [facility] - systolic 11:20:00 [facility] blood pressure 2021-10-17 76 mm[Hg] [facility] - diastolic 11:20:00 [facility] Systolic blood 2021-10-11 135 mm[Hg] [facility] pressure 13:08:00 [facility] Diastolic blood 2021-10-11 81 mm[Hg] [facility] 13:08:00 [facility] Heart rate 2021-10-11 78 /min [facility] 13:08:00 [facility] Body height 2021-10-11 180.3 cm [facility] 13:08:00 [facility] Body weight 2021-10-11 104.101 kg [facility] 13:08:00 [facility] BMI 2021-10-11 32.01 kg/m2 [facility] 13:08:00 [facility] Oxygen saturation 2021-10-11 97 /min [facility] Arterial blood 13:08:00 [facility] oximetry [place] height 2021-07-18 71.5 [in_i] [facility] - 10:40:00 [facility] weight 2021-07-18 228.9 [lb_av] [facility] - 10:40:00 [facility] temperature 2021-07-18 98.1 [degF] [facility] - 10:40:00 [facility] bmi 2021-07-18 31.48 kg/m2 [facility] - 10:40:00 [facility] oximetry 2021-07-18 95 % [facility] - 10:40:00 [facility] respiratory rate 2021-07-18 17 /min [facility] 10:[facility] blood pressure 2021-07-18 135 mm[Hg] [facility] - systolic 10:40:00 [facility] blood pressure 2021-07-18 76 mm[Hg] [facility] - diastolic 10:40:00 [facility] height 2021-04-03 71.5 [in_i] [facility] - 15:00:00 [facility] weight 2021-04-03 234 [lb_av] [facility] - 15:00:00 [facility] temperature 2021-04-03 96.9 [degF] [facility] - 15:00:00 [facility] bmi 2021-04-03 32.18 kg/m2 [facility] - 15:00:00 [facility] oximetry 2021-04-03 98 % [facility] - 15:00:00 [facility] respiratory rate 2021-04-03 17 /min [facility] - 15:00:00 [facility] blood pressure 2021-04-03 138 mm[Hg] [facility] - systolic 15:00:00 [facility] blood pressure 2021-04-03 75 mm[Hg] [facility] - diastolic 15:00:00 [facility] Systolic blood 2021-03-26 152 mm[Hg] [facility] pressure 18:40:00 [facility] Diastolic blood 2021-03-26 58 mm[Hg] [facility] 18:40:00 [facility] Heart rate 2021-03-26 95 /min [facility] 18:40:00 [facility] Body temperature 2021-03-26 37.22 Teresa [facility] 18:40:00 [facility] Respiratory rate 2021-03-26 18 /min [facility] 18:40:00 [facility] Body weight 2021-03-26 106.595 kg [facility] 18:40:00 [facility] BMI 2021-03-26 32.78 kg/m2 [facility] 18:40:00 [facility] Oxygen saturation 2021-03-26 100 /min [facility] Arterial blood 18:40:00 [facility] oximetry [place] height 2021-03-05 71.5 [in_i] [facility] - 09:50:00 [facility] weight 2021-03-05 239.4 [lb_av] [facility] - 09:50:00 [facility] temperature 2021-03-05 98.1 [degF] [facility] - 09:50:00 [facility] bmi 2021-03-05 32.92 kg/m2 [facility] - 09:50:00 [facility] oximetry 2021-03-05 98 % [facility] - 09:50:00 [facility] respiratory rate 2021-03-05 18 /min [facility] - 09:50:00 [facility] blood pressure 2021-03-05 136 mm[Hg] [facility] - systolic 09:50:00 [facility] blood pressure 2021-03-05 64 mm[Hg] [facility] - diastolic 09:50:00 [facility] height 2021-03-05 71.5 [in_i] [facility] - 09:50:00 [facility] weight 2021-03-05 239.4 [lb_av] [facility] - 09:50:00 [facility] temperature 2021-03-05 98.1 [degF] [facility] - 09:50:00 [facility] bmi 2021-03-05 32.92 kg/m2 [facility] - 09:50:00 [facility] oximetry 2021-03-05 98 % [facility] - 09:50:00 [facility] blood pressure 2021-03-05 136 mm[Hg] [facility] - systolic 09:50:00 [facility] blood pressure 2021-03-05 64 mm[Hg] [facility] - diastolic 09:50:00 [facility] height 2020-12-07 71.5 [in_i] [facility] - 10:10:00 [facility] weight 2020-12-07 250.3 [lb_av] [facility] - 10:10:00 [facility] temperature 2020-12-07 98.0 [degF] [facility] - 10:10:00 [facility] bmi 2020-12-07 34.42 kg/m2 [facility] - 10:10:00 [facility] oximetry 2020-12-07 98 % [facility] - 10:10:00 [facility] respiratory rate 2020-12-07 17 /min [facility] - 10:10:00 [facility] blood pressure 2020-12-07 135 mm[Hg] [facility] - systolic 10:10:00 [facility] blood pressure 2020-12-07 70 mm[Hg] [facility] - diastolic 10:10:00 [facility] Systolic blood 2020-12-03 127 mm[Hg] [facility] pressure 19:16:00 [facility] Diastolic blood 2020-12-03 84 mm[Hg] [facility] 19:16:00 [facility] Heart rate 2020-12-03 85 /min [facility] 19:16:00 [facility] Body temperature 2020-12-03 36.5 Teresa [facility] 19:16:00 [facility] Respiratory rate 2020-12-03 16 /min [facility] 19:16:00 [facility] Body height 2020-12-03 180.3 cm [facility] 19:16:00 [facility] Body weight 2020-12-03 113.399 kg [facility] 19:16:00 [facility] BMI 2020-12-03 34.87 kg/m2 [facility] 19:16:00 [facility] Oxygen saturation 2020-12-03 97 /min [facility] in Arterial blood 19:16:00 [facility] oxim[facility] [place] height 2020-10-26 71.5 [in_i] [facility] - 10:10:00 [facility] weight 2020-10-26 290 [lb_av] [facility] - 10:10:00 [facility] temperature 2020-10-26 98 [degF] [facility] - 10:10:00 [facility] bmi 2020-10-26 39.88 kg/m2 [facility] - 10:10:00 [facility] blood pressure 2020-10-26 131 mm[Hg] [facility] - systolic 10:10:00 [facility] blood pressure 2020-10-26 70 mm[Hg] [facility] - diastolic 10:10:00 [facility] Systolic blood 2020-06-21 148 mm[Hg] [facility] pressure 20:01:00 [facility] Diastolic blood 2020-06-21 85 mm[Hg] [facility] 20:01:00 [facility] Heart rate 2020-06-21 83 /min [facility] 20:01:00 [facility] Body temperature 2020-06-21 36.94 Teresa [facility] 20:01:00 [facility] Respiratory rate 2020-06-21 18 /min [facility] 20:01:00 [facility] Body height 2020-06-21 180.3 cm [facility] 20:01:00 [facility] Body weight 2020-06-21 131.271 kg [facility] 20:01:00 [facility] BMI 2020-06-21 40.36 kg/m2 [facility] 20:01:00 [facility] Systolic blood 2022-01-24 155 mm[Hg] [facility] 16:10:00 [facility] Diastolic blood 2022-01-24 77 mm[Hg] [facility] 16:10:00 Hospital Heart rate 2022-01-24 85 /min [facility] 16:10:00 [facility] Body temperature 2022-01-24 36.39 Teresa [facility] 16:10:00 Hospital Respiratory rate 2022-01-24 20 /min [facility] 16:10:00 [facility] Oxygen saturation 2022-01-24 100 /min [facility] Arterial blood 16:10:00 [facility] Body height 2022-01-24 180.3 cm [facility] 14:12:00 Hospital Body weight 2022-01-24 106.2 kg [facility] 14:12:00 Hospital BMI 2022-01-24 32.65 kg/m2 [facility] 14:12:00 [facility] Systolic blood 2020-06-22 144 mm[Hg] [facility] 15:10:00 Hospital Diastolic blood 2020-06-22 65 mm[Hg] [facility] 15:10:00 Hospital Heart rate 2020-06-22 88 /min [facility] 15:10:00 [facility] Body temperature 2020-06-22 36.22 Teresa [facility] 15:10:00 [facility] Body height 2020-06-22 180.3 cm [facility] 15:10:00 Hospital Respiratory rate 2020-05-05 16 /min [facility] 20:27:41 [facility] Oxygen saturation 2020-05-05 98 /min [facility] Arterial blood 20:27:41 [facility] Body weight 2020-05-04 128.187 kg [facility] 22:05:46 Hospital BMI 2020-05-04 39.41 kg/m2 [facility] 22:05:46 Hospital BP Systolic 2017-09-03 130 mm[Hg] Location: [facility] 11:02:00 Position: Sitting BP Diastolic 2017-09-03 80 mm[Hg] Location: [facility] 11:02:00 Position: Sitting Height 2017-09-03 71 [in_us] [facility] 11:02:00 Weight 2017-09-03 298 [lb_av] [facility] 11:02:00 Body Mass Index 2017-09-03 41.56 kg/m2 [facility] Cal[facility] 11:02:00 Temperature 2017-09-03 97.8 [degF] [facility] 11:02:00 BP Systolic 2017-08-27 108 mm[Hg] Location: [facility] 14:27:00 Position: Sitting BP Diastolic 2017-08-27 [...] Herm archana 19:15:00 Systolic (mm Hg) 2015-08-10 [facility] rmann 19:15:00 Diastolic (mm Hg) 2015-08-10 [facility] ermann 19:15:00 Respitory Rate 2015-08-10 Chrystal Ashton archana 18:00:00 Heart Rate 2015-08-10 Chrystal Ashtonan n 18:00:00 Systolic (mm Hg) 2015-08-10 [facility] Mikel rmann 18:00:00 Diastolic (mm Hg) 2015-08-10 [facility] Arash ermann 18:00:00 Heart Rate 2015-08-10 Chrystal Ashtonan n 17:45:00 Respitory Rate 2015-08-10 [facility] Daisha archana 17:45:00 Systolic (mm Hg) 2015-08-10 [facility] rmann 17:45:00 Diastolic (mm Hg) 2015-08-10 [facility] ermann 17:45:00 BMI Calculated 2015-08-10 [facility] Herm archana 13:14:00 Weight 2015-08-10 Chrystal Ashtonan n 13:14:00 Temperature Oral 2015-08-03 98.5 F [facility] rmann (F) 14:50:00 Height 2015-08-03 180.34 cm [facility] Randy n 13:51:00 Procedures Procedure Date / Time Performing Clinician Source Performed VITRECTOMY 2022-01-24 14:57:00 [facility] POC GLUCOSE 2022-01-24 14:38:00 [facility] POCT URINALYSIS DIPSTICK 2021-10-31 19:16:00 Shefali Hooper [facility] POCT URINALYSIS DIPSTICK 2021-10-24 18:43:00 Andressa Puckett [facility] POCT HEMOGLOBIN A1C TEST 2021-10-10 18:23:00 Brody Hinds [facility] REFERRAL- REQUEST/RESPONSE 2021-05-28 05:01:00 Doctor Unassigned , [facility] NOTICE OF PRIVACY 2021-03-26 18:27:07 Doctor Unassigned, [facility] CONSENT/REFUSAL FOR 2021-03-26 18:26:47 Doctor Unassgiorgio, [facility] DIAGNOSIS AND TREATMENT [facility] NOTICE OF PRIVACY 2020-12-18 16:26:34 Doctor Unassigned, [facility] CONSENT/REFUSAL FOR 2020-12-18 16:25:51 Doctor Unassigned, [facility] DIAGNOSIS AND TREATMENT [facility] ASSIGNMENT OF BENEFITS 2020-12-18 16:25:20 Doctor Unassgiorgio, [facility] REFERRAL- REQUEST/RESPONSE 2020-12-08 05:01:00 Doctor Michellessgiorgio , [facility] EKG-12 LEAD 2020-12-03 20:44:28 Greg Peacock [facility] [place] NOTICE OF PRIVACY 2020-12-03 19:10:09 Doctor Unassigned, [facility] MRI BRAIN W WO CONTRAST 2020-05-05 18:29:00 [facility] 2020-05-05 17:10:00 Chloe [facility] TTE COMPLETE, WO CONTRAST, 2020-05-05 15:22:00 Vidal Ortiz [facility] W AGITATED SALINE ([id number]) POC GLUCOSE 2020-05-05 12:19:00 Rafaela Minor [facility] HC COMPLETE BLD COUNT 2020-05-05 10:15:00 [facility] W/AUTO DIFF BASIC METABOLIC PANEL 2020-05-05 10:15:00 [facility] VITAMIN B12 LEVEL 2020-05-05 10:15[facility]00 [facility] VITAMIN B1 LEVEL, WHOLE 2020-05-05 10:15:00 Vidal Ortiz [facility] BLOOD THYROID STIMULATING 2020-05-05 10:15:00 [facility] HORMONE LIPID PANEL 2020-05-05 10:15:00 Vidal Ortiz spital HEMOGLOBIN A1C 2020-05-05 10:15:00 Vidal Ortiz [facility]ital SEDIMENTATION RATE 2020-05-05 10:15:00 [facility] HIV 1 & 2 2020-05-05 10:15:00 Vidal Ortiz spital SYPHILIS TREPONEMA SCREEN 2020-05-05 10:15:00 Ling, Vidal [facility] WITH RPR CONFIRMATION (REVERSE ALGORITHM) ESTIMATED GFR 2020-05-05 10:15:00 Chloe Minor [facility] C-REACTIVE PROTEIN 2020-05-05 10:15:00 Vidal Ortiz [facility] POC GLUCOSE 2020-05-05 01:38:00 [facility] POC GLUCOSE 2020-05-04 22:14:00 Chloe Minor [facility] URINE CULTURE 2020-05-04 20:33:00 Tom Means [facility] URINALYSIS SCREEN AND 2020-05-04 20:33:00 Tom Means [facility] MICROSCOPY, WITH REFLEX TO CULTURE COVID-19 QUALITATIVE 2020-05-04 20:27:00 Tom Means [facility] RT-PCR ECG 12-LEAD 2020-05-04 20:21:36 Chloe Minor [facility] ANGIOGRAM NECK W WO 2020-05-04 19:46:05 Tom Means [facility] CONTRAST CT ANGIOGRAM HEAD W WO 2020-05-04 19:45:38 Tom Means [facility] CONTRAST CT STROKE BRAIN WO 2020-05-04 19:36:06 Tom Means [facility] CONTRAST HC COMPLETE BLD COUNT 2020-05-04 19:19:00 Tom Means [facility] W/AUTO DIFF PARTIAL THROMBOPLASTIN 2020-05-04 19:19:00 Tom Means [facility] TIME (PTT) PROTHROMBIN TIME WITH INR 2020-05-04 19:19:00 Tom Means [facility] COMPREHENSIVE METABOLIC 2020-05-04 19:19:00 Tom Means [facility] PANEL ESTIMATED GFR 2020-05-04 19:19:00 Tom Means [facility] [[facility]] CULTURE, URINE, 2017-08-27 00:00:00 [facility] [[facility]] CULTURE, URINE, 2017-08-21 00:00:00 [facility] [[facility]] CULTURE, URINE, 2017-06-09 00:00:00 [facility] ROUTINE CHILO - Endometrial laser [facility] Amadro ablation Limbal stem cell Chrystal iqbal transplantation ORIF - Open reduction and Memori al [place] internal fixation of fracture Tendon operation Chrystal iqbal History [facility] Ankle [facility] History [facility] Hyster[facility] With Endometrial Ablation Plan of Care Planned Activity Planned Date Details Comments Source Future Scheduled 2022-02-01 Pneumococcal Vaccine: [facility] Test 18:59:30 Pediatrics (0 to 5 Years) and At-Risk Patients (6 to 64 Years) (1 - PCV) [code = Pneumococcal Vaccine: Pediatrics (0 to 5 Years) and At-Risk Patients (6 to 64 Years) (1 - PCV)] Future Scheduled 2022-02-01 Hepatitis C screening [facility] Test 18:59:30 (procedure) [code = [id number]] Future Scheduled 2022-02-01 SHINGLES VACCINES (1 Met [facility] Test 18:59:30 of 2) [code = SHINGLES VACCINES (1 of 2)] Future Scheduled 2022-02-01 Screening for [facility] Test 18:59:30 malignant neoplasm of cervix (procedure) [code = [id number]] Future Scheduled 2022-02-01 BREAST CANCER [facility] Test 18:59:30 SCREENING [code = BREAST CANCER SCREENING] Future Scheduled 2022-02-01 COLONOSCOPY SCREENING [facility] Test 18:59:30 [code = COLONOSCOPY SCREENING] Future Scheduled 2022-02-01 HEPATITIS B VACCINES Met [facility] Test 18:59:30 (1 of 3 - Risk 3-dose series) [code = HEPATITIS B VACCINES (1 of 3 - Risk 3-dose series)] Future Scheduled 2022-02-01 COVID-19 VACCINE (2 - [facility] Test 18:59:30 Booster for Joel series) [code = COVID-19 VACCINE (2 - Booster for Joel series)] Future Scheduled 2022-02-01 INFLUENZA VACCINE Method [facility] Test 18:59:30 [code = INFLUENZA VACCINE] Future Scheduled 2022-02-01 Pneumococcal Vaccine: [facility] Test 18:59:30 Pediatrics (0 to 5 Years) and At-Risk Patients (6 to 64 Years) (1 - PCV) [code = Pneumococcal Vaccine: Pediatrics (0 to 5 Years) and At-Risk Patients (6 to 64 Years) (1 - PCV)] Future Scheduled 2022-02-01 Hepatitis C screening [facility] Test 18:59:30 (procedure) [code = [id number]] Future Scheduled 2022-02-01 SHINGLES VACCINES (1 Met [facility] Test 18:59:30 of 2) [code = SHINGLES VACCINES (1 of 2)] Future Scheduled 2022-02-01 Screening for [facility] Test 18:59:30 malignant neoplasm of cervix (procedure) [code = [id number]] Future Scheduled 2022-02-01 BREAST CANCER [facility] Test 18:59:30 SCREENING [code = BREAST CANCER SCREENING] Future Scheduled 2022-02-01 COLONOSCOPY SCREENING [facility] Test 18:59:30 [code = COLONOSCOPY SCREENING] Future Scheduled 2022-02-01 HEPATITIS B VACCINES Met [facility] Test 18:59:30 (1 of 3 - Risk 3-dose series) [code = HEPATITIS B VACCINES (1 of 3 - Risk 3-dose series)] Future Scheduled 2022-02-01 COVID-19 VACCINE (2 - [facility] Test 18:59:30 Booster for Joel series) [code = COVID-19 VACCINE (2 - Booster for Joel series)] Future Scheduled 2022-02-01 INFLUENZA VACCINE [facility] Test 18:59:30 [code = INFLUENZA VACCINE] Future Scheduled 2022-02-01 Pneumococcal Vaccine: [facility] Test 18:59:30 Pediatrics (0 to 5 Years) and At-Risk Patients (6 to 64 Years) (1 - PCV) [code = Pneumococcal Vaccine: Pediatrics (0 to 5 Years) and At-Risk Patients (6 to 64 Years) (1 - PCV)] Future Scheduled 2022-02-01 Hepatitis C screening [facility] Test 18:59:30 (procedure) [code = [id number]] Future Scheduled 2022-02-01 SHINGLES VACCINES (1 Met [facility] Test 18:59:30 of 2) [code = SHINGLES VACCINES (1 of 2)] Future Scheduled 2022-02-01 Screening for [facility] Test 18:59:30 malignant neoplasm of cervix (procedure) [code = [id number]] Future Scheduled 2022-02-01 BREAST CANCER [facility] Test 18:59:30 SCREENING [code = BREAST CANCER SCREENING] Future Scheduled 2022-02-01 COLONOSCOPY SCREENING [facility] Test 18:59:30 [code = COLONOSCOPY SCREENING] Future Scheduled 2022-02-01 HEPATITIS B VACCINES Met [facility] Test 18:59:30 (1 of 3 - Risk 3-dose series) [code = HEPATITIS B VACCINES (1 of 3 - Risk 3-dose series)] Future Scheduled 2022-02-01 COVID-19 VACCINE (2 - [facility] Test 18:59:30 Booster for Joel series) [code = COVID-19 VACCINE (2 - Booster for Joel series)] Future Scheduled 2022-02-01 INFLUENZA VACCINE Method [facility] Test 18:59:30 [code = INFLUENZA VACCINE] Future Scheduled 2022-02-01 Pneumococcal Vaccine: [facility] Test 18:59:30 Pediatrics (0 to 5 Years) and At-Risk Patients (6 to 64 Years) (1 - PCV) [code = Pneumococcal Vaccine: Pediatrics (0 to 5 Years) and At-Risk Patients (6 to 64 Years) (1 - PCV)] Future Scheduled 2022-02-01 Hepatitis C screening [facility] Test 18:59:30 (procedure) [code = [id number]] Future Scheduled 2022-02-01 SHINGLES VACCINES (1 Met [facility] Test 18:59:30 of 2) [code = SHINGLES VACCINES (1 of 2)] Future Scheduled 2022-02-01 Screening for [facility] Test 18:59:30 malignant neoplasm of cervix (procedure) [code = [id number]] Future Scheduled 2022-02-01 BREAST CANCER [facility] Test 18:59:30 SCREENING [code = BREAST CANCER SCREENING] Future Scheduled 2022-02-01 COLONOSCOPY SCREENING [facility] Test 18:59:30 [code = COLONOSCOPY SCREENING] Future Scheduled 2022-02-01 HEPATITIS B VACCINES Met [facility] Test 18:59:30 (1 of 3 - Risk 3-dose series) [code = HEPATITIS B VACCINES (1 of 3 - Risk 3-dose series)] Future Scheduled 2022-02-01 COVID-19 VACCINE (2 - [facility] Test 18:59:30 Booster for Joel series) [code = COVID-19 VACCINE (2 - Booster for Joel series)] Future Scheduled 2022-02-01 INFLUENZA VACCINE [facility] Test 18:59:30 [code = INFLUENZA VACCINE] Future Scheduled 2022-02-01 Pneumococcal Vaccine: [facility] Test 18:59:30 Pediatrics (0 to 5 Years) and At-Risk Patients (6 to 64 Years) (1 - PCV) [code = Pneumococcal Vaccine: Pediatrics (0 to 5 Years) and At-Risk Patients (6 to 64 Years) (1 - PCV)] Future Scheduled 2022-02-01 Hepatitis C screening [facility] Test 18:59:30 (procedure) [code = [id number]] Future Scheduled 2022-02-01 SHINGLES VACCINES (1 Met [facility] Test 18:59:30 of 2) [code = SHINGLES VACCINES (1 of 2)] Future Scheduled 2022-02-01 Screening for [facility] Test 18:59:30 malignant neoplasm of cervix (procedure) [code = [id number]] Future Scheduled 2022-02-01 BREAST CANCER [facility] Test 18:59:30 SCREENING [code = BREAST CANCER SCREENING] Future Scheduled 2022-02-01 COLONOSCOPY SCREENING [facility] Test 18:59:30 [code = COLONOSCOPY SCREENING] Future Scheduled 2022-02-01 HEPATITIS B VACCINES Met [facility] Test 18:59:30 (1 of 3 - Risk 3-dose series) [code = HEPATITIS B VACCINES (1 of 3 - Risk 3-dose series)] Future Scheduled 2022-02-01 COVID-19 VACCINE (2 - [facility] Test 18:59:30 Booster for Joel series) [code = COVID-19 VACCINE (2 - Booster for Joel series)] Future Scheduled 2022-02-01 INFLUENZA VACCINE [facility] Test 18:59:30 [code = INFLUENZA VACCINE] Future Scheduled 2022-02-01 Pneumococcal Vaccine: [facility] Test 18:59:30 Pediatrics (0 to 5 Years) and At-Risk Patients (6 to 64 Years) (1 - PCV) [code = Pneumococcal Vaccine: Pediatrics (0 to 5 Years) and At-Risk Patients (6 to 64 Years) (1 - PCV)] Future Scheduled 2022-02-01 Hepatitis C screening [facility] Test 18:59:30 (procedure) [code = [id number]] Future Scheduled 2022-02-01 SHINGLES VACCINES (1 Met [facility] Test 18:59:30 of 2) [code = SHINGLES VACCINES (1 of 2)] Future Scheduled 2022-02-01 Screening for [facility] Test 18:59:30 malignant neoplasm of cervix (procedure) [code = [id number]] Future Scheduled 2022-02-01 BREAST CANCER [facility] Test 18:59:30 SCREENING [code = BREAST CANCER SCREENING] Future Scheduled 2022-02-01 COLONOSCOPY SCREENING [facility] Test 18:59:30 [code = COLONOSCOPY SCREENING] Future Scheduled 2022-02-01 HEPATITIS B VACCINES Met [facility] Test 18:59:30 (1 of 3 - Risk 3-dose series) [code = HEPATITIS B VACCINES (1 of 3 - Risk 3-dose series)] Future Scheduled 2022-02-01 COVID-19 VACCINE (2 - [facility] Test 18:59:30 Booster for Joel series) [code = COVID-19 VACCINE (2 - Booster for Joel series)] Future Scheduled 2022-02-01 INFLUENZA VACCINE [facility] Test 18:59:30 [code = INFLUENZA VACCINE] Future Scheduled 2022-02-01 Pneumococcal Vaccine: [facility] Test 18:59:30 Pediatrics (0 to 5 Years) and At-Risk Patients (6 to 64 Years) (1 - PCV) [code = Pneumococcal Vaccine: Pediatrics (0 to 5 Years) and At-Risk Patients (6 to 64 Years) (1 - PCV)] Future Scheduled 2022-02-01 Hepatitis C screening [facility] Test 18:59:30 (procedure) [code = [id number]] Future Scheduled 2022-02-01 SHINGLES VACCINES (1 Met [facility] Test 18:59:30 of 2) [code = SHINGLES VACCINES (1 of 2)] Future Scheduled 2022-02-01 Screening for [facility] Test 18:59:30 malignant neoplasm of cervix (procedure) [code = 766724962] Future Scheduled 2022-02-01 BREAST CANCER [facility] Test 18:59:30 SCREENING [code = BREAST CANCER SCREENING] Future Scheduled 2022-02-01 COLONOSCOPY SCREENING [facility] Test 18:59:30 [code = COLONOSCOPY SCREENING] Future Scheduled 2022-02-01 HEPATITIS B VACCINES [facility] Test 18:59:30 (1 of 3 - Risk 3-dose series) [code = HEPATITIS B VACCINES (1 of 3 - Risk 3-dose series)] Future Scheduled 2022-02-01 COVID-19 VACCINE (2 - [facility] Test 18:59:30 Booster for Joel series) [code = COVID-19 VACCINE (2 - Booster for Joel series)] Future Scheduled 2022-02-01 INFLUENZA VACCINE [facility] Test 18:59:30 [code = INFLUENZA VACCINE] Future Scheduled 2021-10-19 COVID-19 VACCINE (#1) [facility] Test 10:53:01 [code = COVID-19 VACCINE (#1)] Future Scheduled 2021-10-19 Pneumococcal Vaccine: [facility] Test 10:53:01 Pediatrics (0 to 5 Years) and At-Risk Patients (6 to 64 Years) (1 - PCV) [code = Pneumococcal Vaccine: Pediatrics (0 to 5 Years) and At-Risk Patients (6 to 64 Years) (1 - PCV)] Future Scheduled 2021-10-19 Hepatitis C screening [facility] Test 10:53:01 (procedure) [code = [id number]] Future Scheduled 2021-10-19 SHINGLES VACCINES (1 Met [facility] Test 10:53:01 of 2) [code = SHINGLES VACCINES (1 of 2)] Future Scheduled 2021-10-19 Screening for [facility] Test 10:53:01 malignant neoplasm of cervix (procedure) [code = 985680762] Future Scheduled 2021-10-19 BREAST CANCER [facility] Test 10:53:01 SCREENING [code = BREAST CANCER SCREENING] Future Scheduled 2021-10-19 COLONOSCOPY SCREENING [facility] Test 10:53:01 [code = COLONOSCOPY SCREENING] Future Scheduled 2021-10-19 HEPATITIS B VACCINES Met [facility] Test 10:53:01 (1 of 3 - Risk 3-dose series) [code = HEPATITIS B VACCINES (1 of 3 - Risk 3-dose series)] Future Scheduled 2021-10-19 INFLUENZA VACCINE Method [facility] Test 10:53:01 [code = INFLUENZA VACCINE] Future Scheduled DIABETES: RETINAL EYE [facility] Test EXAM [code = DIABETES: RETINAL EYE EXAM] Future Scheduled [facility] [code = DIABETIC FOOT EXAM] Future Scheduled URINE [facility]BUMIN [facility] Test [code = URINE MICROALBUMIN] Future Scheduled COVID-19 [facility]ACCINE (1) [facility] [code = COVID-19 VACCINE (1)] Future Scheduled Hepatitis C [facility] (procedure) [code = 783510323] Future Scheduled Screening for [facility] Test malignant neoplasm of cervix (procedure) [code = 777609130] Future Scheduled BREAST CANCER [facility] Test SCREENING [code = BREAST CANCER [...] Clinicians Facility Department ID 2022-01-14 Outpatient Travis, STLC [facility] [id number] Common 08:35:01 [facility] 2021-11-27 Outpatient [facility] [id number] [place] 10:51:[address] [place] [address] 2021-10-16 Outpatient Travis, STLC [facility] [id number] Common 14:20:00 Luciano [facility] 2021-08-20 [facility] [id number] Common 08:10:01 Luciano [facility] 2021-08-16 [facility] [id number] Common 15:42:00 [facility] 2021-07-10 Outpatient Travis, STLC [facility] [id number] Common 08:19:00 Luciano [facility] 2021-05-08 [facility] [id number] Common 15:07:00 [facility] 2021-03-29 Outpatient DALLIN, [facility] [id number] [place] 16:38:20 [facility] 2021-03-14 [facility] [id number] [place] 10:48:45 [facility] 2021-03-14 Outpatient Travis, STLMLC STLMLC Common 09:24:01 Luciano [facility] 2021-03-07 Outpatient Travis, STLMLC STLMLC Common 14:38:44 Luciano [facility] 2021-03-07 Outpatient Travis, STLMLC STLMLC Common 14:34:38 Luciano [facility] 2021-03-07 Outpatient Travis, STLMLC STLMLC Common 14:19:07 Luciano [facility] 2021-03-07 Outpatient Travis, STLMLC STLMLC Common 14:06:31 Luciano [facility] 2021-03-07 Outpatient Travis, STLMLC STLMLC Common 14:06:01 Luciano [facility] 2021-03-07 Outpatient Travis, STLMLC STLMLC Common 14:05:29 Luciano [facility] 2021-03-07 Outpatient Travis, STLMLC STLMLC Common 13:56:00 Luciano [facility] 2021-03-07 Outpatient Travis, STLMLC STLMLC Common 13:49:17 Luciano [id number] [facility] 2021-03-07 Outpatient Travis, STLMLC STLMLC Common 12:29:42 Luciano [id number] [facility] 2021-03-07 Outpatient Travis, STLMLC STLMLC Common 12:27:48 Luciano [facility] 2021-03-07 Outpatient Travis, STLMLC STLMLC Common 12:27:16 Luciano [facility] 2021-03-07 Outpatient Travis, STLMLC STLMLC Common 12:25:19 Luciano [facility] 2021-03-07 Outpatient Travis, STLMLC STLMLC Common 12:24:57 Luciano [id number] [facility] 2021-03-07 Outpatient Travis, STLMLC STLMLC Common 12:21:52 Luciano 02785 [facility] 2021-03-07 Outpatient Travis, STLMLC STLMLC [id number] Common 12:21:15 Luciano 05158 [facility] 2021-03-07 Outpatient Travis, STLMLC STLMLC Common 12:20:49 Luciano [id number] [facility] 2021-03-07 Outpatient Travis, STLMLC STLMLC Common 12:19:53 Luciano 89488 [facility] 2021-03-07 Outpatient Travis, STLMLC STLMLC Common 11:37:00 Luciano 90046 [facility] 2021-03-07 Outpatient Travis, STLMLC STLMLC Common 11:36:58 Luciano 11673 [facility] 2021-03-07 Outpatient Travis, STLMLC STLMLC Common 11:33:09 Luciano 80837 [facility] 2021-03-07 Outpatient Travis, STLMLC STLMLC Common 11:31:11 Luciano 65469 [facility] 2021-03-07 Outpatient Travis, STLMLC STLMLC Common 11:06:28 Luciano 11569 [facility] 2021-01-10 Outpatient [facility] [id number] [place] 10:36:54 SHEFALI [facility] 2021-01-10 Outpatient [facility] [id number] [place] 09:52:14 SHEFALI [facility] 2020-12-12 Emergency [facility] [id number] Univers 09:13:05 ity [facility] 2020-11-24 Outpatient [facility] [id number] [place] 15:05:59 [facility] 2020-11-24 Outpatient MICHAEL [facility] [id number] [place] 14:12:[facility] 2020-[facility]-24 Outpatient [facility]HAEL [facility] [id number] [place] 13:57:46 [facility] 2020-11-13 Outpatient MICHAEL [facility] [id number] [place] 12:16:[facility] 2022-04-26 2022-04-26 Outpatient [facility] [id number] Lyle 17:19:36 17:19:36 0317 F Frank 2022-04-24 2022-04-24 Outpatient LAVERN [facility] [id number] [place] 11:00:00 11:00:00 [facility] 2022-04-15 2022-04-15 Outpatient [facility] [id number] Lyle 15:35:32 15:35:32 0306 F [place] 2022-04-01 2022-04-01 Outpatient [facility] [id number] Lyle 15:48:00 15:48:00 0220 F [place] 2022-03-13 2022-03-13 (TEL) STLMLC STLMLC [id number] Co mmon 00:00:00 00:00:00 [facility] 2022-02-18 2022-02-18 (TEL) STLMLC STLMLC [id number] Co mmon 00:00:00 00:00:00 [facility] 2022-02-08 2022-02-08 OFFICE STLC STLC [id number] Co mmon 00:00:00 00:00:00 VISIT EST Spir it PT LEVEL 3 [facility] 2022-02-08 2022-02-08 (TEL) STLMLC STLMLC [id number] Co mmon 00:00:00 00:00:00 [facility] 2022-01-24 2022-01-24 [facility] Cristofer 1.2.840.1 [id number] [id number] Methodi 06:31:00 23:59:00 Encounter Tuyet Robin 78787.1.[address] 3.430.2.7 Hospit a .3.286809 l .8 2022-01-24 2022-01-24 Hospital Fish, 1.2.840.1 [id number] 75718 Methodi 06:31:00 23:59:00 Encounter Tuyet H. 08200.1.[address] 3.430.2.7 Hospit a .3.179981 l .8 2022-01-24 2022-01-24 Surgery Fish, 1.2.840.1 [id number] 5962 Methodi 09:50:00 11:00:00 Tuyet H. 96613.1.1 654 s t 3.430.2.7 Hospit a .3.852613 l .8 2022-01-24 2022-01-24 Surgery Fish, 1.2.840.1 [id number] 3839 Methodi 09:50:00 11:00:00 Tuyet H. 08221.1.1 654 s t 3.430.2.7 Hospit a .3.190061 l .8 2022-01-24 2022-01-24 Anesthesia Ballivian, 1.2.840.1 [id number] Methodi 08:57:00 10:07:00 Event Aba 22069.1.[address] Faustino 3.430.2.7 Hosp ruiz .3.864613 l .8 2022-01-24 2022-01-24 Anesthesia Ballivian, 1.2.840.1 [id number] Methodi 08:57:00 10:07:00 Event Aba 04346.1.[address] Faustino 3.430.2.7 Hosp ruiz .3.787824 l .8 2022-01-24 2022-01-24 Travel 1.2.840.1 1.2.844.178 2471 730274 Methodi 00:00:00 00:00:[address] 3.430.2.7 0.2.7.3.698 Ho spita .3.206511 084.8 l .8 2022-01-24 2022-01-24 Travel 1.2.840.1 1.2.766.285 5359 748919 Methodi 00:00:00 00:00:[address] 3.430.2.7 0.2.7.3.698 Ho miroslavata .3.883403 084.8 l .8 2022-01-16 2022-01-16 OFFICE STLMLC STLMLC [id number] Co mmon 00:00:00 00:00:00 VISIT Spirit ESTAB PT - CHI LEVEL 4 [facility] 2022-01-01 2022-01-01 (TEL) STLMLC STLMLC [id number] Co mmon 00:00:00 00:00:00 [facility] - [facility] 2021-12-21 2021-12-21 (TEL) STLMLC STLMLC [id number] Co mmon 00:00:00 00:00:00 Spirit [facility] 2021-12-05 2021-12-05 Outpatient LAVERN [facility] [id number] [place] 14:50:00 14:50:00 [facility] 2021-11-14 2021-11-14 Telephone [facility] 1.2.446.379 [id number] Univers 00:00:00 00:00:00 [facility] [employer] 350.1.13.10 it y of [place] 4.2.7.2.686 Lionel as DAMIAN?BLEA [phone] [address] OFFICE BUILDING 2021-10-31 2021-10-31 Office Michael [facility] 1.2.745.984 [id number] [place] 13:30:00 14:24:45 Visit Shefali SUGAR 350.1.13.58 Mikel alth [place] 9.2.7.2.686 [address] [phone] AND 5 WOMENS 2021-10-24 2021-10-24 Procedure Lavern [facility] 1.2.840.114 [id number] [place] 13:40:00 14:27:30 Visit Andressa SUGAR 350.1.13.58 Mikel alth [place] 9.2.7.2.686 PLA[address] 0 [phone] AND 5 WOMENS 2021-10-17 2021-10-17 OFFICE STLMLC STLMLC [id number] Co mmon 00:00:00 00:00:00 VISIT [facility] LEVEL 4 [facility] 2021-10-11 2021-10-11 (TEL) STLMLC STLMLC [id number] Co mmon 00:00:00 00:00:00 [facility] 2021-10-10 2021-10-10 Outpatient R CHAVEZ [facility] [id number] Univers 13:30:00 14:23:09 [facility] 2021-10-10 2021-10-10 Office [facility] 1.2.840.114 [id number] Univers 13:30:00 14:23:09 Visit [facility] 350.1.13.10 it y of [place] 4.2.7.2.686 Lionel as DAMIAN?BLEA [phone] [address] OFFICE BUILDING 2021-10-09 2021-10-09 (TEL) STLMLC STLMLC [id number] Co mmon 00:00:00 00:00:00 [facility] 2021 2021 (TEL) STLMLC STLMLC [id number] Co mmon 00:00:00 00:00:00 [facility] 2021-08-14 2021-08-14 (TEL) STLMLC STLMLC [id number] Co mmon 00:00:00 00:00:00 [facility] 2021-08-07 2021-08-07 Outpatient R CHAVEZ [facility] [id number] Univers 15:30:00 15:30:00 [facility] 2021-07-23 2021-07-23 Telephone [facility] 1.2.218.233 [id number] Univers 00:00:00 00:00:00 [place] [address]..13.10 it y of [place] 4.2.7.2.686 Lionel as DAMIAN?BLEA [phone] [address] OFFICE BUILDING 2021-07-18 2021-07-18 OFFICE STLMLC STLMLC [id number] Co mmon 00:00:00 00:00:00 VISIT Spirit ESTAB PT - CHI LEVEL 4 [facility] 2021-05-29 2021-05-29 Outpatient R CHAVEZ [facility] [id number] Univers 10:30:00 10:30:[facility] 2021-05-28 2021-05-28 Orders Doctor AURELIO 1.2.840.114 [id number] Univers 00:00:00 00:00:00 Only Unassigned, BETY 350.1.13.10 ity [facility] 4.2.7.2.686 [facility] [phone] [facility] [address] 2021-05-25 2021-05-25 (TEL) STLMLC STLC [id number] Co mmon 00:00:00 00:00:00 [facility] - [facility] 2021-04-16 2021-04-[address] Spence [facility] 1.2.840.1 14 [id number] [place] 00:00:00 00:00:00 Ct Spence SUGAR 350.1.13.58 [facility] 9.2.7.2.686 PLA[address] 2 [phone] AND 2 WOMENS 2021-04-03 2021-04-03 Outpatient R CHAVEZ [facility] [id number] Univers 10:00:00 10:00:00 [facility] 2021-04-03 2021-04-03 OFFICE STLC STLC [id number] Co mmon 00:00:00 00:00:00 VISIT Spirit ESTAB PT - CHI LEVEL 4 [facility] 2021-03-26 2021-03-26 Emergency X [facility] ERT [id number] Univers 12:42:00 13:51:00 RASHMI [facility] 2021-03-26 2021-03-26 Emergency [facility] 1.2.941.737 [id number] Univers 12:42:00 13:51:00 Rashmi PERRIN 350.1.13.10 i ty of [place] 4.2.7.2.686 [facility] [phone] [facility] [address] Branch 2021-03-26 2021-03-26 (TEL) STLMLC [facility] [id number] Co mmon 00:00:00 00:00:00 [facility] - [facility] 2021-03-26 2021-03-26 Orders Doctor AURELIO 1.2.840.114 [id number] Univers 00:00:00 00:00:00 Only Unassigned, BETY 350.1.13.10 ity of [place] [facility] 4.2.7.2.686 Lionel as [phone] [facility] [address] 2021-03-14 2021-03-[address] Spence [facility] 1.2.840.1 14 [id number] [place] 00:00:00 00:00:00 Ct Spence SUG[place] 350.1.13.58 Health [place] 9.2.7.2.686 [address] 2 [phone] AND 2 WOMENS 2021-03-12 2021-03-[address] Spence [facility] 1.2.840.1 14 [id number] [place] 00:00:00 00:00:00 Ct Spence [place] 350.1.13.58 Health [place] 9.2.7.2.686 [address] 7 [phone] AND 2 WOMENS 2021-03-09 2021-03-[address] Spence [facility] 1.2.840.1 14 [id number] [place] 00:00:00 00:00:00 Ct Spence [place] 350.1.13.58 Health [place] 9.2.7.2.686 [address] 3 [phone] AND 2 WOMENS 2021-03-07 2021-03-07 Outpatient R CHAVEZ WACAMILA [facility] [id number] Univers 14:30:00 14:30:00 IMANONG ity of [facility] 2021-03-06 2021-03-06 Telephone Chavez WACAMILA 1.2.386.785 [id number] Univers 00:00:00 00:00:00 [facility] HEALTH 350.1.13.10 it y of [place] 4.2.7.2.686 Lionel as DAMIAN?BLEA [phone] Me dical KNEY [address] MEDICAL OFFICE BUILDING 2021-03-05 2021-03-05 OFFICE STLMLC STLMLC [id number] Co mmon 00:00:00 00:00:00 VISIT [facility] ESTAB PT - CHI LEVEL 4 [facility] 2021-03-05 2021-03-05 SUB ANNUAL STLMLC STLMLC [id number] Common 00:00:00 00:00:00 MCR Spirit WELLNESS - CHI VISIT [facility] 2021-03-01 2021-03-01 (TEL) STLMLC STLMLC [id number] Co mmon 00:00:00 00:00:00 [facility] 2021-02-28 2021-02-28 (TEL) STLMLC STLMLC [id number] Co mmon 00:00:00 00:00:00 [facility] 2021-02-27 2021-02-27 (TEL) STLMLC STLMLC [id number] Co mmon 00:00:00 00:00:00 [facility] 2021-02-26 2021-02-26 (TEL) STLMLC STLMLC [id number] Co mmon 00:00:00 00:00:00 [facility] 2021-01-03 2021-01-03 (TEL) STLMLC STLMLC [id number] Co mmon 00:00:00 00:00:00 [facility] 2020-12-27 2020-12-27 (TEL) STLMLC STLMLC [id number] Co mmon 00:00:00 00:00:00 [facility] 2020-12-18 2020-12-18 Hospital Radiology [facility] 1.2.840.114 [id number] Univers 10:28:59 23:59:00 Encounter MARYCHUY 350.1.13.10 ity of [place] 4.2.7.2.686 [facility] [phone] [facility] [address] 2020-12-18 2020-12-18 Outpatient R RADIOLOGY [facility] [id number] Univers 00:00:00 23:59:00 ity of [facility] 2020-12-18 2020-12-18 Orders Doctor AURELIO 1.2.840.114 [id number] Univers 00:00:00 00:00:00 Only Unassigned, BETY 350.1.13.10 ity of [place] [facility] 4.2.7.2.686 Lionel as [phone] [facility] [address] 2020-12-08 2020-12-08 Orders Doctor AURELIO 1.2.840.114 [id number] Univers 00:00:00 00:00:00 Only Unassigned, BETY 350.1.13.10 ity of [place] [facility] 4.2.7.2.686 Lionel as [phone] [facility] [address] 2020-12-07 2020-12-07 OFFICE STLMLC STLMLC [id number] Co mmon 00:00:00 00:00:00 VISIT [facility] LEVEL 4 [facility] 2020-12-07 2020-12-07 (TEL) STLMLC STLMLC [id number] Co mmon 00:00:00 00:00:00 [facility] 2020-12-06 2020-12-06 (TEL) STLMLC STLMLC [id number] Co mmon 00:00:00 00:00:00 [facility] 2020-12-05 2020-12-05 (TEL) STLMLC STLMLC [id number] Co mmon 00:00:00 00:00:00 [facility] 2020-12-04 2020-12-04 (TEL) STLMLC STLMLC [id number] Co mmon 00:00:00 00:00:00 [facility] 2020-12-04 2020-12-04 (TEL) STLMLC STLMLC [id number] Co mmon 00:00:00 00:00:00 [facility] 2020-12-03 2020-12-[address] [facility] 1.2.456.[id number] [facility] 14:18:00 16:20:00 Greg Perrin 350.1.13.10 ity of [place] 4.2.7.2.686 [facility] [phone] [facility] [address] 2020-12-03 2020-12-03 Orders Doctor CAREY 1.2.840.114 [id number] Univers 00:00:00 00:00:00 Only Unassigned, BETY 350.1.13.10 ity of [place] [facility] 4.2.7.2.686 Lionel as [phone] [facility] [address] 2020-11-27 2020-11-27 Orders RHIANNON Hooper [facility] 1.2.585.266 [id number] [place] 00:00:00 00:00:00 Only Shefali SUGAR 350.1.13.58 He alth [place] 9.2.7.2.686 [address] 3 [phone] AND 5 WOMENS 2020-11-27 2020-11-[address] Spence [facility] 1.2.840.1 14 [id number] [place] 00:00:00 00:00:00 Ct Sp[place] 350.1.13.58 [facility] [place] 9.2.7.2.686 [address] 6 [phone] AND 2 WOMENS 2020-11-24 2020-11-24 Office Michael [facility] 1.2.794.117 [id number] [place] 14:14:20 15:06:05 Visit Shefali SUGAR 350.1.13.58 Mikel alth [place] 9.2.7.2.686 [address] 5 [phone] AND 5 WOMENS 2020-11-10 2020-11-10 [facility] [id number] Co mmon 00:00:00 00:00:00 [facility] 2020-10-26 2020-10-26 OFFICE STLC STLC [id number] Co mmon 00:00:00 00:00:00 VISIT Spirit ESTAB PT - CHI LEVEL 4 [facility] 2020-10-26 2020-10-26 (TEL) STLC STLC [id number] Co mmon 00:00:00 00:00:00 [facility] 2020-10-12 2020-10-12 Outpatient STLC STLC [id number] Common 00:00:00 00:00:00 [facility] 2020-09-28 2020-09-28 Documentat Nida Wheeler 1.2.840.1 [id number] Methodi 00:00:00 00:00:[address] 3.430.2.7 Hospit a .3.986584 l .8 2020-08-16 2020-08-16 [facility]ill [facility] 1.2.139.737 [id number] Univers 00:00:00 00:00:00 Adriana Perrin 350.1.13.10 i ty [facility] [place]2.7.2.[place] [phone] Ne dical nal [address] [place] [address] 2020-07-19 2020-07-19 Outpatient R ANGELIKA [facility] [id number] [facility] 09:00:00 09:00:00 ADRIANA pierce [facility] 2020-06-22 2020-06-22 Office WheelerNormal 1.2.840.1 [id number] Methodi 09:54:22 10:40:[address] 3.430.2.7 Hospit a .3.079524 l .8 2020-06-22 2020-06-22 Travel 1.2.840.1 1.2.574.557 5060 [id number] Methodi 00:00:00 00:00:[address] 3.430.2.7 0.2.7.3.698 spita .3.775510 084.8 l .8 2020-06-21 2020-06-21 Office Adriana Carney [facility] 1.2.840.11 4 [id number] Univers 14:30:27 16:08:05 Visit Goldie Huber 350.1.13.10 ity [facility] [place].2.7.2.[place] [phone] Ne dical nal [address] [place] [address] 2020-06-21 2020-06-21 Outpatient R YOBANI [facility] [id number] Univers 15:00:00 15:00:00 GOLDIE [facility] 2020-06-21 2020-06-21 Telephone Angelika [facility] 1.2.840.114 [id number] Univers 00:00:00 00:00:00 Adriana Perrin 350.1.13.10 i ashkan [facility] 4.2.7.2.686 Kassidy Joshi [phone] Ne dic[address] 2020-06-01 2020-06-01 Outpatient STLMLC STLMLC [id number] Common 00:00:00 00:00:00 [facility] 2020-06-01 2020-06-01 Outpatient STLMLC STLMLC [id number] Common 00:00:00 00:00:00 [facility] 2020-05-30 2020-05-30 Travel 1.2.840.1 1.2.495.063 [id number] Methodi 00:00:00 00:00:[address] 3.430.2.7 0.2.7.3.698 Ho spita .3.907002 084.8 l .8 2020-05-26 2020-05-26 Outpatient STLMLC STLMLC [id number] Common 00:00:00 00:00:00 [facility] 2020-05-17 2020-05-17 Outpatient STLMLC STLMLC [id number] Common 00:00:00 00:00:00 [facility] 2020-05-04 2020-05-05 Emergency Kingsley Corado K. 1.2.840.1 [id number] Methodi 13:01:00 16:43:00 Chloe Minor 42446.1.[address] 3.430.2.7 Hospit a .3.008781 l .8 2020-05-04 2020-05-04 Travel 1.2.840.1 1.2.869.654 1706 [id number] Methodi 00:00:00 00:00:[address] 3.430.2.7 0.2.7.3.698 Ho spita .3.183806 084.8 l .8 2020-04-14 2020-04-14 Outpatient STLMLC STLMLC [id number] Common 00:00:00 00:00:00 [facility] 2020-04-10 2020-04-10 Outpatient STLMLC STLMLC [id number] Common 00:00:00 00:00:00 [facility] 2020-03-31 2020-03-31 Outpatient STLMLC STLMLC [id number] Common 00:00:00 00:00:00 [facility] 2020-03-23 2020-03-23 Outpatient STLMLC STLMLC [id number] Common 00:00:00 00:00:00 [facility] 2020-03-23 2020-03-23 Outpatient STLMLC STLMLC [id number] Common 00:00:00 00:00:00 [facility] 2020-03-14 2020-03-14 Outpatient STLMLC STLMLC [id number] Common 00:00:00 00:00:00 [facility] 2020-03-07 2020-03-07 Outpatient STLMLC STLMLC [id number] Common 00:00:00 00:00:00 [facility] 2020-02-28 2020-02-28 Outpatient STLMLC STLMLC [id number] Common 00:00:00 00:00:00 [facility] 2020-02-24 2020-02-24 Outpatient STLMLC STLMLC [id number] Common 00:00:00 00:00:00 [facility] 2020-02-23 2020-02-23 Outpatient STLMLC STLMLC [id number] Common 00:00:00 00:00:00 [facility] 2020-02-23 2020-02-23 Outpatient STLMLC STLMLC [id number] Common 00:00:00 00:00:00 [facility] 2019-11-24 2019-11-25 Outpt Diag nullFlavo [facility] [id number] Memoria 14:28:00 04:59:00 Services r Outpatient 03 l Imaging [facility] 2019-11-24 2019-11-25 Outpt Diag nullFlavo [facility] [id number] Memoria 14:28:00 04:59:00 Services r Outpatient 03 l Imaging [facility] 2019-11-24 2019-11-24 Outpatient Etelvina, [facility] [id number] 09:28:00 23:59:00 Erna 03 Starr 2019-11-11 2019-11-11 Outpatient STLMLC STLMLC [id number] Common 00:00:00 00:00:00 [facility] 2019-11-02 2019-11-02 Outpatient STLMLC STLMLC [id number] Common 00:00:00 00:00:00 [facility] 2019-11-02 2019-11-02 Outpatient STLMLC STLMLC [id number] Common 00:00:00 00:00:00 [facility] 2019-10-27 2019-10-27 Outpatient [id number] Common 14:10:00 14:10:[address] [facility] 2019-10-27 2019-10-27 [id number] Common 10:59:00 10:59:[address] [facility] 2019-10-12 2019-10-12 [facility] [id number] Common 08:20:00 08:20:[address] [facility] 2019-09-22 2019-09-22 [facility] [id number] Common 08:30:00 08:30:[address] [facility] 2019-08-10 2019-08-10 [facility] [id number] Common 13:30:00 13:30:[address] [facility] 2019-04-02 2019-04-02 [facility] 29 [id number] Common 15:07:00 15:07:[address] [facility] 2019-03-16 2019-03-16 [facility] 29 [id number] Common 17:04:00 17:04:[address] [facility] 2018-12-03 2018-12-03 [facility] [id number] Common 16:41:00 16:41:[address] [facility] 2018-11-18 2018-11-18 [facility] [id number] Common 08:00:00 08:00:[address] [facility] 2018-07-22 2018-07-22 [facility] [id number] Common 08:30:00 08:30:[address] [facility] 2018-06-10 2018-06-10 [facility] [id number] Common 09:53:00 09:53:[address] [facility] 2018-03-23 2018-03-23 [facility] [id number] Common 14:00:00 14:00:[address] [facility] 2018-03-19 2018-03-19 [facility] [id number] Common 10:45:00 10:45:[address] [facility] 2017-11-10 2017-11-10 [facility] 21 [id number] Common 10:15:00 10:15:[address] [facility] 2017-11-06 2017-11-06 [facility] [id number] Common 08:00:00 08:00:[address] [facility] 2017-09-23 2017-09-23 [facility] 15 [id number] Common 16:07:00 16:07:[address] [facility] 2017-09-03 2017-09-03 Appointmen HALBROOK, UTP UroGynecolo 4 [id number] [place] 11:00:00 11:00:00 t; KARISSA CLEANING [facility] mar KARISSA CLEANING 2017-08-27 2017-08-27 Appointmen HALBROOK, UTP UroGynecolo 4 [id number] [place] 14:10:00 14:10:00 t; KARISSA CLEANING gy Center [facility] KARISSA CLEANING 2017-08-21 2017-08-21 Appointmen HALBROOK, UTP UroGynecolo 4 [id number] [place] 10:10:00 10:10:00 t; KARISSA CLEANING gy Center [facility] KARISSA CLEANING 2017-08-14 2017-08-14 Appointmen HALBROOK, UTP UroGynecolo 4 [id number] [place] 11:00:00 11:00:00 t; KARISSA CLEANING gy Center [facility] KARISSA CLEANING 2017-07-31 2017-07-31 Appointmen HALBROOK, UTP UroGynecolo 4 [id number] [place] 14:10:00 14:10:00 t; KARISSA CLEANING gy Center [facility] KARISSA CLEANING 2017-07-24 2017-07-24 Appointmen HALBROOK, UTP UroGynecolo 4 [id number] [place] 13:20:00 13:20:00 t; KARISSA CLEANING gy Center [facility] KARISSA CLEANING 2017-07-17 2017-07-17 Appointmen HALBROOK, UTP UroGynecolo 4 [id number] [place] 14:10:00 14:10:00 t; KARISSA CLEANING gy Center [facility] KARISSA CLEANING 2017-07-03 2017-07-03 Appointmen UROGYN1, UTP Women's [id number] [place] 09:00:00 09:00:00 [facility] LAVERN 2017-06-26 2017-06-26 Appointmen HALBROOK, UTP UroGynecolo 4 [id number] [place] 09:00:00 09:00:00 t; KARISSA CLEANING gy Center [facility] ans SHEFALI, PEDIATRIC SPEECH LANGUAGE PATHOLOGIST 2017-06-25 2017-06-25 [facility] [id number] Common 09:30:00 09:30:00 t [place] [employer] [facility] 2017-06-19 2017-06-19 [facility] UroGynecolo 4 [id number] [place] 15:20:00 15:20:00 t; KARISSA CLEANING gy Center [facility] ans KARISSA CLEANING 2017-06-12 2017-06-12 [facility] UroGynecolo 4 [id number] [place] 13:20:00 13:20:00 t; KARISSA CLEANING gy Center [facility] ans SHEFALI PEDIATRIC SPEECH LANGUAGE PATHOLOGIST 2017-06-09 2017-06-09 [facility]oint[facility] CampusROCHELLE, [facility] UTP [id number] [place] 09:20:00 09:20:00 t; KARISSA CLEANING Phys ici HALBROOK, ans SHEFALI, PEDIATRIC SPEECH LANGUAGE PATHOLOGIST 2016-12-19 2016-12-19 Appointmen HALHUNGOK, UTP UTP [id number] [place] 10:10:00 10:10:00 t; KARISSA CLEANING Phys ici HALBROOK, ans SHEFALI, PEDIATRIC SPEECH LANGUAGE PATHOLOGIST 2016-11-28 2016-11-28 Appointmen HALBROOK, UTP UTP [id number] [place] 10:10:00 10:10:00 t; KARISSA CLEANING Phys ici HALBROOK, ans SHEFALI, PEDIATRIC SPEECH LANGUAGE PATHOLOGIST 2016-09-12 2016-09-12 Appointmen HALHUNGOK, UTP UTP [id number] [place] 13:20:00 13:20:00 t; SHEFALI PEDIATRIC SPEECH LANGUAGE PATHOLOGIST Phys ici HALBROOK, ans SHEFALI, PEDIATRIC SPEECH LANGUAGE PATHOLOGIST 2016-04-01 2016-04-01 Emergency nullFlavo [facility] [id number] Memoria 17:43:00 23:41:00 r [place] 02 l [place] 2016-04-01 2016-04-01 Emergency nullFlavo [facility] [id number] Memoria 17:43:00 23:41:00 r [place] 02 l [place] 2016-04-01 2016-04-01 Outpatient Julio C [place] [facility] [id number] 11:43:00 17:41:00 Enriquenwarasheed 02 2015-11-30 2015-11-30 [facility] MICHAEL, [facility] UTP [id number] [place] 09:00:00 09:00:00 t; KAIRSSA CLEANING ans ROBYN, NP 2015-10-20 2015-10-20 [facility] LAVERN, RHIANNON UTP [id number] [place] 10:10:00 10:10:00 t; Preeti CARTER ans NINA, M.D. 2015-09-21 2015-09-21 [facility] [id number] [place] 13:00:00 13:00:00 t; Preeti CARTER ans NINA, M.D. 2015-08-10 2015-08-10 OBS Day nullFlavo [facility] [id number] Memoria 12:24:00 19:42:00 Surgery r [place] 00 l [place] 2015-08-10 2015-08-10 OBS [facility] nullFlavo [facility] [id number] Memoria 12:24:00 19:42:00 Surgery r [place] 00 l [place] 2015-08-10 2015-08-10 Outpatient CONRADO Puckett [facility] [id number] 07:24:00 14:42:00 Andressa 00 Yolanda 2015-08-10 2015-08-10 [facility] RHIANNON PUCKETT UTP [id number] [place] 09:30:00 09:30:00 t; Preeti CARTER ans NINA, M.D. 2015-08-02 2015-08-02 RHIANNON Escalera UTP [id number] [place] 08:30:00 08:30:00 t; Preeti CARTER ans NINA, M.D. 2015-07-05 2015-07-05 RHIANNON Escalera UTP [id number] [place] 08:30:00 08:30:00 t; Preeti CARTER ans NINA, M.D. 2015-04-28 2015-04-29 Outpt Diag nullFlavo [facility] [id number] Memoria 15:30:00 04:59:00 Services r Outpatient 02 l Imaging Helio Elise 2015-04-28 2015-04-29 Outpt Diadavid Holley [facility] [id number] Memoria 15:30:00 04:59:00 Services r Outpatient 02 l Imaging Helio Elise 2015-04-28 2015-04-28 Outpatient Lavern, [id number] 10:30:00 23:59:00 Andressa [id number] Yolanda [id number] 2011-09-02 2011-09-02 OD NATE FAY [id number] Memoria 08:48:00 08:48:00 00 l Amador 2011-09-02 2011-09-02 OD NATE FAY [id number] Memoria 08:48:00 08:48:00 00 antony English Results Test Description Test Time Test Comments Results Result Comments Source CULTURE, URINE 2022-04-18 SPECIMEN NUMBER: 11:58:21 [id number] CULTURE, URINE SPECIMEN NUMBER: [id number] SPECIMEN COMMENT: URINE SOURCE: URINE REPORT STATUS: FINAL FINAL REPORT: 04/18/2022 10-50,000 CFU/ML UROGENITAL ENZO PRESENT NO COMMON PATHOGENS [facility] has important pathology staff changes effective 04/10/2022. New pathology staff will provide uninterrupted, excellent patient care and clinical consultation. See URL: [email or web address]. UNLESS OTHERWISE INDICATED, ALL TESTING PERFORMED AT [facility] [address] [place] [address] RADIO TELEVISION ANNOUNCER: LIBIA HEMPHILL M.D. CLIA NUMBER [id number] [facility] [place]. [id number] CULTURE, URINE 2022-04-04 SPECIMEN NUMBER: 16:03:59 [id number] CULTURE, URINE SPECIMEN NUMBER: [id number] SOURCE: URINE REPORT STATUS: FINAL ISOLATE NUMBER [...] Testis a DNA probe test intended for us e in the detectionand identification of Jacques species, Gardnerellavagi nalis and Trichomonas vaginalis nucle ic acid. [facility] has important patho logy staff changes effective 04/10. New pathology staff will provide uninterrupted, excellent patient care and clinical co nsultation. See URL: [email or web address]. UNLESS OTHERWISE INDIC ATED, ALL TESTING PERFORMED AT [facility] [place] [address] 4 RADIO TELEVISION ANNOUNCER: ALEX LIAO M.D. [place] NUMBER [id number] [facility] [place]. [id number] POC [id number] 14:39:00 Test Item Value Reference Range Interpretation Comments POC glucose (test code = 237 mg/dL 65-99 H Ope rator Name: [facility] 55058-4) AdamDevice ID: [id number] able: [facility] Notified traffic division commanding officer Interpretation (test Abnormal code = 15731-0) [facility]2022-12-15 14:39:00 Test Item Value Reference Range Interpretation Comments POC glucose (test code = 237 mg/dL 65-99 H Ope rator Name: [facility] 39442-0) AdamDevice ID: [id number] able: TM Notified traffic division commanding officer Interpretation (test Abnormal code = 43402-4) [facility] [id number] 14:39:00 Test Item Value Reference Range Interpretation Comments POC glucose (test code = 237 mg/dL 65-99 H Ope rator Name: [facility] 93923-7) AdamDevice ID: [id number] able: TM Notified traffic division commanding officer Interpretation (test Abnormal code = 60835-0) [facility]2022-12-15 14:39:00 Test Item Value Reference Range Interpretation Comments POC glucose (test code = 237 mg/dL 65-99 H Ope rator Name: [facility] 55061-4) AdamDevice ID: [id number] able: TM Notified traffic division commanding officer Interpretation (test Abnormal code = 99780-3) [facility]2022-12-15 14:39:00 Test Item Value Reference Range Interpretation Comments POC glucose (test code = 237 mg/dL 65-99 H Ope rator Name: [facility] 35878-0) AdamDevice ID: [id number] able: [facility] Notified traffic division commanding officer Interpretation (test Abnormal code = 44797-8) [facility]2022-12-15 14:39:00 Test Item Value Reference Range Interpretation Comments POC glucose (test code = 237 mg/dL 65-99 H Ope rator Name: [facility] 66850-6) AdamDevice ID: [id number] able: [facility] Notified traffic division commanding officer Interpretation (test Abnormal code = 80059-1) [facility]2022-12-15 14:39:00 Test Item Value Reference Range Interpretation Comments POC glucose (test code = 237 mg/dL 65-99 H Ope rator Name: [facility] 90032-6) AdamDevice ID: [id number] able: [facility] Notified traffic division commanding officer Interpretation (test Abnormal code = 19267-1) [facility] urinalysis dipstick manually [id number] 19:16:00 Test Item Value Reference Range Interpretation Comments Glucose, UA (test code 1000 mg/dL Negative A = 8550496) Bilirubin, UA (test Negative Negative code = 7443551) Ketones, Urine (test Negative Negative, Trace code = 57743-5) Spec Grav, UA (test code = 294432797) Blood, UA (test code = Mod 312840531) pH, UA (test code = 5.0-8.5 6879658) Protein, UA (test code Negative Negative, Trace, = 9025500) 200(+2)mg/dL, 15/mg/dL Urobilinogen, UA (test See_Comment [Aut omated code = 4700347) message] The system which generated this result transmitted reference range : 0.2. The refere nce range was not u sed to interpret th is result as normal/abnormal . Nitrite, UA (test code Negative Negative, Trace = 1078715) Leukocytes, UA (test Negative Negative, Trace code = 4950728) Lab Interpretation Abnormal (test code = 49005-7) [facility] urinalysis dipstick manually [id number] 18:43:00 Test Item Value Reference Range Interpretation Comments Glucose, UA (test code 500 mg/dL Negative A = 9726413) Bilirubin, UA (test Negative Negative code = 6891449) Ketones, Urine (test Negative Negative, Trace code = 44911-0) Spec Grav, UA (test code = 170541245) Blood, UA (test code = Trace 824160002) pH, UA (test code = 5.0-8.5 5488333) Protein, UA (test code Negative Negative, Trace, = 0816026) 200(+2)mg/dL, 15/mg/dL Urobilinogen, UA (test See_Comment [Aut omated code = 3057360) message] The system which generated this result transmitted reference range : 0.2. The refere nce range was not u sed to interpret th is result as normal/abnormal . Nitrite, UA (test code Negative Negative, Trace = 2766946) Leukocytes, UA (test Negative Negative, Trace code = 2568810) Lab Interpretation Abnormal (test code = 57772-0) [facility] HEMOGLOBIN A1C [id number] 18:23:00 Test Item Value Reference Range Interpretation Comments POCT HBA1C (test code = 4548-4) 14 % 4-6 A Lab Interpretation (test code = Abnormal 64203-7) [facility] HEMOGLOBIN A1C [id number] 18:23:00 Test Item Value Reference Range Interpretation Comments POCT HBA1C (test code = 4548-4) 14 % 4-6 A Lab Interpretation (test code = Abnormal 18158-8) [facility] [id number] 00:09:04 Test Item Value Reference Range Interpretation Comments Ventricular rate (test code = 253) Atrial rate (test code = 255) IL interval (test code = 266) QRSD interval [...] abnormality no longer evident in Lateral leads- [facility] Complete, (w Contrast, Strain and 3D if needed)2020-05-05 21:56:13 Test Item Value Reference Range Interpretation Comments AoV Area, Vmax (test 3.00 cm2 code = 2364117206) AoV Area, VTI (test 2.90 cm2 code = 4136938410) AoV Mean PG (test code mmHg = 2786725550) AoV Peak PG (test code mmHg = 2198822721) AoV Vmax (test code = 1.31 m/s 6016070846) AoV VTI (test code = 0.26 m 3377870994) IVS,d (test code = 1.03 cm 0153394362) IVS/LVPW,2D (test code = 7611492288) Left Atrium Dimension 4.40 cm Anterior (test code = 4638586488) LV,d (test code = 5.15 cm 6760328148) LV EF,2D (test code = 55.90 % 4149407606) LV,s (test code = 3.92 cm 8196281797) LVOT area (test code = 3.14 cm2 2657172283) LVOT Diam,S (test code 2.00 cm = 6246449994) LVOT Vmax (test code = 1.25 m/s 1202467728) LVOT VTI (test code = 0.24 m 5372947705) LVPWD,d (test code = 0.86 cm 0569945715) PV Pk Grad (test code = mmHg 7169458950) PV VMAX (test code = 0.90 m/s 9588092889) RVOT Vmax (test code = 0.78 m/s 3226521672) TR Vpeak (test code = 2.34 mm/s 8566339565) MV E A ratio (test code = 6845696127) TR pk grad (test code = mmHg 0999378762) MR Vmax (test code = 4.27 m/s 3092142260) MR peak grad (test code mmHg = 8378292944) E wave decelartion time msec (test code = 6398359278) MV Peak A Sam (test 0.87 m/s code = 1810803466) MV valve area p 1/2 3.17 cm2 method (test code = 0827225192) MV Peak E Sam (test 0.83 m/s code = 6039129358) MV stenosis pressure 69.31 ms 1/2 time (test code = 8613006814) LVOT stroke volume 0.75 cm3 (test code = 7074117324) AV LVOT peak gradient mmHg (test code = 6881240587) Ao Root,d,2D (test code 3.00 cm = 2345525060) LV SYS VOL (test code = 66.72 ml 2268646812) LV LICONA VOL (test code 126.64 ml = 4525273022) LV SV Teich 2D (test 59.92 ml code = 0135063110) LV Vol s Teich PSAX 66.72 ml (test code = 5330198092) RVOT pk grad (test code mmHg = 8126623327) AoV Vmn (test code = 2492404736) LV FS Teich 2D (test code = 4403241867) MV AE ratio (test code = 6098436841) LV FS Cube 2D (test code = 6962546817) LVOT Vmn (test code = 9459515932) Aov area Vmn (test code 2.80 cm2 = 8843264618) LVOT mean grad (test mmHg code = 8358049459) MAX Pred HR (test code = 6801082803) 85 of MPHR (test code = 6615898372) Ao d LA s ratio (test code = 8201137140) Calc MPHR (test code = bpm 1692486073) LV SV Cube 2D (test 76.35 ml code = 7744332946) LV vol d cube 2D (test 136.59 ml code = 3029252039) LV vol s cube 2D (test 60.24 ml code = 7321764353) MV Decel slope (test 3.45 m/s2 code = 3418867446) Pred Exer Dur R1 (test code = 6804933717) Pred METS R1 (test code = 6925675390) Velocity Ratio (V1/V2) 0.95 m/s (test code = 4689) EF (test code = 47.32 % 3010982904) E/A ratio (test code = 3112645153) LVOT VTI (CM) (test 24.00 cm code = 9619010826) MARIOLA (test code = MARIOLA) Normal left ventricular size and function with an EF~ 55% to 60%.Normal right ventricular size and function.Structurally normal cardiac valves.Mild mitral regurgitation. Left atrial enlargement. Normal pericardium with no effusion.Grade 1 diastolic dysfunction. [facility] Brain W Wo [id number] 18:34:06EXAM: MRI BRAIN W WO CONTRAST CLINICAL [...] is no enhancing lesion in the brain. [facility]-[id number] Interface, Radiology Results [facility] 05/05/2020 1:37 PM CDT EXAM:MRI BRAIN W [...] There is no enhancing lesion in the brain.BOP-[id number] HospitalUrine [id number] 20:46:09 Test Item Value Reference Range Interpretation Comments Urine culture (test SEE COMMENT Bacteriu summer screen code = 6887693) negative. [facility] Wo [id number] 19:49:34EXAMINATION: CT ANGIOGRAM HEAD W WO CONTRAST [...] occlusion or aneurysm.[id number] Neck W Wo [id number] 19:48:26 EXAMINATION: CT ANGIOGRAM NECK W WO [...] Vertebral artery patency. [id number] Interface, Radiology Results 05/04/2020 2:51 PM CDT [...] criteriaVertebral artery patency.[id number] HospitalCT Stroke Brain Wo [id number] 19:42:38EXAMINATION: CT STROKE BRAIN WO CONTRAST CLINICAL [...] 1441 hours on 05/04/2020 who verbalized understanding. [facility]- [id number] Interface, Radiology Results Incoming - 05/04/2020 2:45 [...] at 1441 hours on 05/04/2020 who verbalized understanding.[id number]] CULTURE, URINE, [id number] 14:25:01 Test Item Value Reference Range Interpretation Comments ORGANISM (test Escherichia coliEnterococcus code = 699-9) Species FINAL REPORT 50,000 - 100,000 CFU/mL (test code = Escherichia coli 10,000 - FINAL REPORT) 50,000 CFU/mL EnterococcusSpecies 10,000 - 50,000 CFU/mL Skin Enzo [facility][H] [id number] 14:25:01 Test Item Value Reference Range Interpretation Comments ORGANISM (test code = Enterococcus 699-9) Species Ampicillin (test code - S = Ampicillin) Levofloxacin (test - S code = Levofloxacin) Nitrofurantoin (test - S code = Nitrofurantoin) Tetracycline (test - S code = Tetracycline) Vancomycin (test code SEE NOTES S S= Latoya ceptible, = Vancomycin) R= Resistant, I= Intermediate, N/A= Not Applicable [facility][H] [id number] 14:25:01 Test Item Value Reference Range Interpretation [...] Tetracycline (test code = - S Tetracycline) [facility][O] Urine Dipstick (In Office)2017-08-27 15:29:00 Test Item Value Reference Range Interpretation Comments LEUKOCYTES (test code = LEUKOCYTES) 2+ A NITRITE; Normal (test code = 39689-5) neg N UROBILINOGEN; Normal (test code = 0.2 N 59830-9) PROTEIN; Normal (test code = 41432-1) neg N pH (test code = pH) 6.5 N URINE BLOOD; Abnormal (test code = trace A 93913-5) SPECIFIC GRAVITY; Normal (test code = 1.020 N 2965-2) KETONES; Normal (test code = 63236-2) neg N BILIRUBIN; Normal (test code = 21658-4) neg N GLUCOSE; Normal (test code = 1547-9) neg N [facility][QLH] CULTURE, URINE, [id number] 15:37:01 Test Item Value Reference Range Interpretation Comments ORGANISM (test code = Escherichia coli 699-9) FINAL REPORT (test 50,000 - 100,000 CFU/mL code = FINAL REPORT) Escherichia coli . 50,000 - 100,000 CFU/mL [facility][H] [id number] 15:37:01 Test Item Value Reference Range Interpretation [...] Resi stant, I= Intermediate, N/A= Not Applicable [facility][O] Urine Dipstick (In Office)2017-08-21 12:24:00 Test Item Value Reference Range Interpretation Comments LEUKOCYTES (test code = LEUKOCYTES) 2+ A NITRITE; Normal (test code = 80344-1) NEG N UROBILINOGEN; Normal (test code = 0.2 N 51705-6) PROTEIN; Abnormal (test code = 23749-2) 30 MG A pH (test code = pH) 5.5 N URINE BLOOD; Abnormal (test code = 2+ A 62482-0) SPECIFIC GRAVITY; Normal (test code = 1.030 N 2965-2) KETONES; Normal (test code = 46383-8) NEG N BILIRUBIN; Normal (test code = 18506-4) NEG N GLUCOSE; Normal (test code = 1547-9) NEG N [facility][O] Urine Dipstick (In Office)2017-06-09 10:06:00 Test Item Value Reference Range Interpretation Comments LEUKOCYTES (test code = LEUKOCYTES) 2+ A NITRITE; Normal (test code = 70263-7) NEG N UROBILINOGEN; Normal (test code = 0.2 N 86096-7) PROTEIN; Normal (test code = 35115-1) NEG N pH (test code = pH) 7.0 N URINE BLOOD; Abnormal (test code = 2+ A 92578-3) SPECIFIC GRAVITY; Normal (test code = 1.010 N 2965-2) KETONES; Normal (test code = 95766-2) NEG N BILIRUBIN; Normal (test code = NEG N 28912-3) GLUCOSE; Abnormal (test code = 1547-9) 250 MG A [facility]] BV/ VAGINITIS PANEL DNA PROBE [id number] 09:20:01 Test Item Value Reference Range Interpretation Comments Trichomonas vaginalis DNA (test code Negative Negative = 89641-7) Gardnerella vaginalis DNA; Abnormal Positive Negative A (test code = 6410-5) Jacques sp. DNA; Abnormal (test code Positive Negative A = 63187-8) [facility]] CULTURE, URINE, [id number] 09:20:01 Test Item Value Reference Range Interpretation Comments ORGANISM (test code = Escherichia coli 699-9) FINAL REPORT (test >100,000 CFU/mL code = FINAL REPORT) Escherichia coli 10,000 - 50,000 CFU/mL [facility][H] [id number] 09:20:01 Test Item Value Reference Range Interpretation Comments ORGANISM (test code Escherichia coli = 699-9) Ciprofloxacin (test .75 S code = Ciprofloxacin) Levofloxacin (test 1.5 S code = Levofloxacin) Trimethoprim/Sulfame 32 R thoxazole (test code = Trimethoprim/Sulfame thoxazole) Ceftriaxone (test .094 S S= Suscept ible, code = Ceftriaxone) R= Resis tant, I= Intermediate, N/A= Not Applicable [facility]icians[facility] [id number] 20:20:00 Test Item Value Reference Range Interpretation Comments Eos BF (test code = Eos BF) 0 [facility]2017-02-20 20:20:00 Test Item Value Reference Range Interpretation Comments Macrophage BF (test code = Macrophage 0 BF) [facility]2017-02-20 20:20:00 Test Item Value Reference Range Interpretation Comments Color BF (test code = Yellow (04/01/16 2:20 Color BF) PM) [facility]2017-02-20 20:20:00 Test Item Value Reference Range Interpretation Comments CellCnt BF Type (test Other (04/01/16 2:20 code = CellCnt BF Type) PM) [facility]2017-02-20 20:20:00 Test Item Value Reference Range Interpretation Comments Clarity BF (test code = Slight Cloudy (04/01/16 Clarity BF) 2:20 PM) [facility]2017-02-20 20:20:00 Test Item Value Reference Range Interpretation Comments RBC BF (test code = RBC BF) 5375 [facility]2017-02-20 20:20:00 Test Item Value Reference Range Interpretation Comments WBC BF (test code = WBC BF) 980 [facility]2017-02-20 20:20:00 Test Item Value Reference Range Interpretation Comments Lymph BF (test code = Lymph BF) 44 [facility]2017-02-20 20:20:00 Test Item Value Reference Range Interpretation Comments Segs BF (test code = Segs BF) 56 [facility]2017-02-20 20:20:00 Test Item Value Reference Range Interpretation Comments Eos BF (test code = Eos BF) 0 [facility]2017-02-20 20:20:00 Test Item Value Reference Range Interpretation Comments Macrophage BF (test code = Macrophage 0 BF) [facility]2017-02-20 20:20:00 Test Item Value Reference Range Interpretation Comments Color BF (test code = Yellow (04/01/16 2:20 Color BF) PM) [facility]2017-02-20 20:20:00 Test Item Value Reference Range Interpretation Comments CellCnt BF Type (test Other (04/01/16 2:20 code = CellCnt BF Type) PM) [facility]2017-02-20 20:20:00 Test Item Value Reference Range Interpretation Comments Clarity BF (test code = Slight Cloudy (04/01/16 Clarity BF) 2:20 PM) [facility]2017-02-20 20:20:00 Test Item Value Reference Range Interpretation Comments RBC BF (test code = RBC BF) 5375 [facility]2017-02-20 20:20:00 Test Item Value Reference Range Interpretation Comments WBC BF (test code = WBC BF) 980 [facility]2017-02-20 20:20:00 Test Item Value Reference Range Interpretation Comments Lymph BF (test code = Lymph BF) 44 [facility]2017-02-20 20:20:00 Test Item Value Reference Range Interpretation Comments Segs BF (test code = Segs BF) 56 [facility]2017-02-20 20:20:00 Test Item Value Reference Range Interpretation Comments Eos BF (test code = Eos BF) 0 [facility]2017-02-20 20:20:00 Test Item Value Reference Range Interpretation Comments Macrophage BF (test code = Macrophage 0 BF) [facility]2017-02-20 20:20:00 Test Item Value Reference Range Interpretation Comments Color BF (test code = Yellow (04/01/16 2:20 Color BF) PM) [facility]2017-02-20 20:20:00 Test Item Value Reference Range Interpretation Comments CellCnt BF Type (test Other (04/01/16 2:20 code = CellCnt BF Type) PM) [facility]2017-02-20 20:20:00 Test Item Value Reference Range Interpretation Comments Clarity BF (test code = Slight Cloudy (04/01/16 Clarity BF) 2:20 PM) [facility]2017-02-20 20:20:00 Test Item Value Reference Range Interpretation Comments RBC BF (test code = RBC BF) 5375 [facility]2017-02-20 20:20:00 Test Item Value Reference Range Interpretation Comments WBC BF (test code = WBC BF) 980 [facility]2017-02-20 20:20:00 Test Item Value Reference Range Interpretation Comments Lymph BF (test code = Lymph BF) 44 [facility]2017-02-20 20:20:00 Test Item Value Reference Range Interpretation Comments Segs BF (test code = Segs BF) 56 [facility]2017-02-20 20:20:00 Test Item Value Reference Range Interpretation Comments Eos BF (test code = Eos BF) 0 [facility]2017-02-20 20:20:00 Test Item Value Reference Range Interpretation Comments Macrophage BF (test code = Macrophage 0 BF) [facility]2017-02-20 20:20:00 Test Item Value Reference Range Interpretation Comments Color BF (test code = Yellow (04/01/16 2:20 Color BF) PM) [facility]2017-02-20 20:20:00 Test Item Value Reference Range Interpretation Comments CellCnt BF Type (test Other (04/01/16 2:20 code = CellCnt BF Type) PM) [facility]2017-02-20 20:20:00 Test Item Value Reference Range Interpretation Comments Clarity BF (test code = Slight Cloudy (04/01/16 Clarity BF) 2:20 PM) [facility]2017-02-20 20:20:00 Test Item Value Reference Range Interpretation Comments RBC BF (test code = RBC BF) 5375 [facility]2017-02-20 20:20:00 Test Item Value Reference Range Interpretation Comments WBC BF (test code = WBC BF) 980 [facility]2017-02-20 20:20:00 Test Item Value Reference Range Interpretation Comments Lymph BF (test code = Lymph BF) 44 [facility]2017-02-20 20:20:00 Test Item Value Reference Range Interpretation Comments Segs BF (test code = Segs BF) 56 [facility]2017-02-20 20:20:00 Test Item Value Reference Range Interpretation Comments Eos BF (test code = Eos BF) 0 [facility]2017-02-20 20:20:00 Test Item Value Reference Range Interpretation Comments Macrophage BF (test code = Macrophage 0 BF) [facility]2017-02-20 20:20:00 Test Item Value Reference Range Interpretation Comments Color BF (test code = Yellow (04/01/16 2:20 Color BF) PM) [facility]2017-02-20 20:20:00 Test Item Value Reference Range Interpretation Comments CellCnt BF Type (test Other (04/01/16 2:20 code = CellCnt BF Type) PM) [facility]2017-02-20 20:20:00 Test Item Value Reference Range Interpretation Comments Clarity BF (test code = Slight Cloudy (04/01/16 Clarity BF) 2:20 PM) [facility]2017-02-20 20:20:00 Test Item Value Reference Range Interpretation Comments RBC BF (test code = RBC BF) 5375 [facility]2017-02-20 20:20:00 Test Item Value Reference Range Interpretation Comments WBC BF (test code = WBC BF) 980 [facility]2017-02-20 20:20:00 Test Item Value Reference Range Interpretation Comments Lymph BF (test code = Lymph BF) 44 [facility]2017-02-20 20:20:00 Test Item Value Reference Range Interpretation Comments Segs BF (test code = Segs BF) 56 [facility]2017-02-20 20:20:00 Test Item Value Reference Range Interpretation Comments Eos BF (test code = Eos BF) 0 [facility]2017-02-20 20:20:00 Test Item Value Reference Range Interpretation Comments Macrophage BF (test code = Macrophage 0 BF) [facility]2017-02-20 20:20:00 Test Item Value Reference Range Interpretation Comments Color BF (test code = Yellow (04/01/16 2:20 Color BF) PM) [facility]2017-02-20 20:20:00 Test Item Value Reference Range Interpretation Comments CellCnt BF Type (test Other (04/01/16 2:20 code = CellCnt BF Type) PM) [facility]2017-02-20 20:20:00 Test Item Value Reference Range Interpretation Comments Clarity BF (test code = Slight Cloudy (04/01/16 Clarity BF) 2:20 PM) [facility]2017-02-20 20:20:00 Test Item Value Reference Range Interpretation Comments RBC BF (test code = RBC BF) 5375 [facility]2017-02-20 20:20:00 Test Item Value Reference Range Interpretation Comments WBC BF (test code = WBC BF) 980 [facility]2017-02-20 20:20:00 Test Item Value Reference Range Interpretation Comments Lymph BF (test code = Lymph BF) 44 [facility]2017-02-20 20:20:00 Test Item Value Reference Range Interpretation Comments Segs BF (test code = Segs BF) 56 [facility]2017-02-20 20:20:00 Test Item Value Reference Range Interpretation Comments Eos BF (test code = Eos BF) 0 [facility]2017-02-20 20:20:00 Test Item Value Reference Range Interpretation Comments Macrophage BF (test code = Macrophage 0 BF) [facility]2017-02-20 20:20:00 Test Item Value Reference Range Interpretation Comments Color BF (test code = Yellow (04/01/16 2:20 Color BF) PM) [facility]2017-02-20 20:20:00 Test Item Value Reference Range Interpretation Comments CellCnt BF Type (test Other (04/01/16 code = CellCnt BF Type) PM) [facility]2017-02-20 20:20:00 Test Item Value Reference Range Interpretation Comments Clarity BF (test code = Slight Cloudy (04/01/16 Clarity BF) 2:20 PM) [facility]2017-02-20 20:20:00 Test Item Value Reference Range Interpretation Comments RBC BF (test code = RBC BF) 5375 [facility]2017-02-20 20:20:00 Test Item Value Reference Range Interpretation Comments WBC BF (test code = WBC BF) 980 [facility]2017-02-20 20:20:00 Test Item Value Reference Range Interpretation Comments Lymph BF (test code = Lymph BF) 44 [facility]2017-02-20 20:20:00 Test Item Value Reference Range Interpretation Comments Segs BF (test code = Segs BF) 56 [facility]2017-02-20 20:20:00 Test Item Value Reference Range Interpretation Comments Eos BF (test code = Eos BF) 0 [facility]2017-02-20 20:20:00 Test Item Value Reference Range Interpretation Comments Macrophage BF (test code = Macrophage 0 BF) [facility]2017-02-20 20:20:00 Test Item Value Reference Range Interpretation Comments Color BF (test code = Yellow (04/01/16 2:20 Color BF) PM) [facility]2017-02-20 20:20:00 Test Item Value Reference Range Interpretation Comments CellCnt BF Type (test Other (04/01/16 2:20 code = CellCnt BF Type) PM) [facility]2017-02-20 20:20:00 Test Item Value Reference Range Interpretation Comments Clarity BF (test code = Slight Cloudy (04/01/16 Clarity BF) 2:20 PM) [facility]2017-02-20 20:20:00 Test Item Value Reference Range Interpretation Comments RBC BF (test code = RBC BF) 5375 [facility]2017-02-20 20:20:00 Test Item Value Reference Range Interpretation Comments WBC BF (test code = WBC BF) 980 [facility]2017-02-20 20:20:00 Test Item Value Reference Range Interpretation Comments Lymph BF (test code = Lymph BF) 44 [facility]2017-02-20 20:20:00 Test Item Value Reference Range Interpretation Comments Segs BF (test code = Segs BF) 56 [facility]2017-02-20 20:20:00 Test Item Value Reference Range Interpretation Comments Eos BF (test code = Eos BF) 0 [facility]2017-02-20 20:20:00 Test Item Value Reference Range Interpretation Comments Macrophage BF (test code = Macrophage 0 BF) [facility]2017-02-20 20:20:00 Test Item Value Reference Range Interpretation Comments Color BF (test code = Yellow (04/01/16 2:20 Color BF) PM) [facility]2017-02-20 20:20:00 Test Item Value Reference Range Interpretation Comments CellCnt BF Type (test Other (04/01/16 2:20 code = CellCnt BF Type) PM) [facility]2017-02-20 20:20:00 Test Item Value Reference Range Interpretation Comments Clarity BF (test code = Slight Cloudy (04/01/16 Clarity BF) 2:20 PM) [facility]2017-02-20 20:20:00 Test Item Value Reference Range Interpretation Comments RBC BF (test code = RBC BF) 5375 [facility]2017-02-20 20:20:00 Test Item Value Reference Range Interpretation Comments WBC BF (test code = WBC BF) 980 [facility]2017-02-20 20:20:00 Test Item Value Reference Range Interpretation Comments Lymph BF (test code = Lymph BF) 44 [facility]2017-02-20 20:20:00 Test Item Value Reference Range Interpretation Comments Segs BF (test code = Segs BF) 56 [facility]2017-02-20 20:20:00 Test Item Value Reference Range Interpretation Comments Eos BF (test code = Eos BF) 0 [facility]2017-02-20 20:20:00 Test Item Value Reference Range Interpretation Comments Macrophage BF (test code = Macrophage 0 BF) [facility]2017-02-20 20:20:00 Test Item Value Reference Range Interpretation Comments Color BF (test code = Yellow (04/01/16 2:20 Color BF) PM) [facility]2017-02-20 20:20:00 Test Item Value Reference Range Interpretation Comments CellCnt BF Type (test Other (04/01/16 2:20 code = CellCnt BF Type) PM) [facility]2017-02-20 20:20:00 Test Item Value Reference Range Interpretation Comments Clarity BF (test code = Slight Cloudy (04/01/16 Clarity BF) 2:20 PM) [facility]2017-02-20 20:20:00 Test Item Value Reference Range Interpretation Comments RBC BF (test code = RBC BF) 5375 [facility]2017-02-20 20:20:00 Test Item Value Reference Range Interpretation Comments WBC BF (test code = WBC BF) 980 [facility]2017-02-20 20:20:00 Test Item Value Reference Range Interpretation Comments Lymph BF (test code = Lymph BF) 44 [facility]2017-02-20 20:20:00 Test Item Value Reference Range Interpretation Comments Segs BF (test code = Segs BF) 56 [facility]WyjviofLCCWXHLZKP6560-20-55 19:10:00 Test Item Value Reference Range Interpretation Comments WBC (test code = WBC) 6.1 3.7-10.4 [facility] CenterKayrsycOUJDVYSUAF9491-53-63 19:10:00 Test Item Value Reference Range Interpretation Comments MPV (test code = MPV) 7.9 7.4-10.4 [facility] CenterDspqlygNQITIRYDAI2078-31-87 19:10:00 Test Item Value Reference Range Interpretation Comments Platelet (test code = Platelet) 226 133-450 [facility] CenterTrduzipYISRJXCFQK7858-98-89 19:10:00 Test Item Value Reference Range Interpretation Comments MCH (test code = MCH) 28.5 pg 27.0-31.0 [facility] CenterJxelfflBMYBTWAEGI5494-29-75 19:10:00 Test Item Value Reference Range Interpretation Comments RDW (test code = RDW) 14.8 11.5-14.5 [facility] CenterVxmdibmTZFSJOHCVZ5016-23-92 19:10:00 Test Item Value Reference Range Interpretation Comments MCHC (test code = MCHC) 33.2 32.0-36.0 [facility] CenterZnqhkimEEHVAEVFRX5575-75-02 19:10:00 Test Item Value Reference Range Interpretation Comments Hct (test code = Hct) 30.8 36.0-48.0 [facility] CenterHpfgipjHPRWOCLVIZ0010-28-71 19:10:00 Test Item Value Reference Range Interpretation Comments RBC (test code = RBC) 3.59 4.20-5.40 [facility] CenterFadlchsERFFCKCDNA8028-63-68 19:10:00 Test Item Value Reference Range Interpretation Comments Hgb (test code = Hgb) 10.2 12.0-16.0 [facility] CenterQimdwwfJKORHQCZMV9888-67-14 19:10:00 Test Item Value Reference Range Interpretation Comments MCV (test code = MCV) 85.9 80.0-98.0 [facility] CenterRbjoscbGFDBCIMASE9606-40-75 19:10:00 Test Item Value Reference Range Interpretation Comments Eosinophils # (test code 0.1 See_Comment [A utomated message] The = Eosinophils #) system whic h generated this result tra nsmitted reference range : <=0.5. The reference r lv was not used to int erpret this result as normal/abnormal . [facility] CenterVzdhafuTMGFXRSSRJ4197-31-13 19:10:00 Test Item Value Reference Range Interpretation Comments Monocytes # (test code 0.4 See_Comment [Aut omated message] The = Monocytes #) system which generated this result tra nsmitted reference range : <=0.8. The reference r lv was not used to int erpret this result as normal/abnormal . [facility] CenterWorehvlRBYZJDTIEH2800-12-52 19:10:00 Test Item Value Reference Range Interpretation Comments Segs-Bands # (test code = Segs-Bands #) 4.0 1.5-8.1 [facility] CenterSyioqkaQRPPXYKIWQ1659-26-88 19:10:00 Test Item Value Reference Range Interpretation Comments Lymphocytes # (test code = Lymphocytes 1.5 1.0-5.5 #) [facility] CenterInjsxawDBSZQMPQQK5599-81-59 19:10:00 Test Item Value Reference Range Interpretation Comments Basophils # (test code 0.0 See_Comment [Aut omated message] The = Basophils #) system which generated this result tra nsmitted reference range : <=0.2. The reference r lv was not used to int erpret this result as normal/abnormal . [facility] CenterOeelcnyCVOAQGWIZS1848-03-40 19:10:00 Test Item Value Reference Range Interpretation Comments Lymphocytes (test code = Lymphocytes) 25.0 20.0-40.0 [facility] CenterCijfwkwVJMQPOBTCP9444-63-71 19:10:00 Test Item Value Reference Range Interpretation Comments Monocytes (test code = Monocytes) 6.9 2.0-12.0 [facility] CenterLfuefupPIYKIKVWGW0311-39-60 19:10:00 Test Item Value Reference Range Interpretation Comments Segs (test code = Segs) 65.5 45.0-75.0 [facility] CenterUzmnjtcRQGMUVUDLG4748-73-10 19:10:00 Test Item Value Reference Range Interpretation Comments Basophils (test code = 0.6 See_Comment [Aut omated message] The Basophils) system which ge nerated this result tra nsmitted reference range : <=1.0. The reference r lv was not used to int erpret this result as normal/abnormal . [facility] CenterWrelnotDEUFFWCPVX7363-70-36 19:10:00 Test Item Value Reference Range Interpretation Comments Eosinophils (test code = 2.0 See_Comment [A utomated message] The Eosinophils) system which ge nerated this result tra nsmitted reference range : <=4.0. The reference r lv was not used to int erpret this result as normal/abnormal . [facility] CenterGfnppvvGNCDEYTABT2565-02-88 19:10:00 Test Item Value Reference Range Interpretation Comments WBC (test code = WBC) 6.1 3.7-10.4 [facility] CenterHwefjzxZGFZWVKDEQ1547-45-29 19:10:00 Test Item Value Reference Range Interpretation Comments MPV (test code = MPV) 7.9 7.4-10.4 [facility] CenterUdmhrvzWXMKKBMDQL0003-78-49 19:10:00 Test Item Value Reference Range Interpretation Comments Platelet (test code = Platelet) 226 133-450 [facility] CenterAsjpempNMHXNYMGKN6955-81-73 19:10:00 Test Item Value Reference Range Interpretation Comments MCH (test code = MCH) 28.5 pg 27.0-31.0 [facility] CenterFrsfrsgMDFCURUAWX9203-31-26 19:10:00 Test Item Value Reference Range Interpretation Comments RDW (test code = RDW) 14.8 11.5-14.5 [facility] CenterPfenjsuFGGEEQDZHU7922-41-04 19:10:00 Test Item Value Reference Range Interpretation Comments MCHC (test code = MCHC) 33.2 32.0-36.0 [facility] CenterXndwrpqTZCGSUSERQ1941-77-04 19:10:00 Test Item Value Reference Range Interpretation Comments Hct (test code = Hct) 30.8 36.0-48.0 [facility] CenterRzzmcrrWXXQKWEFCI0095-14-41 19:10:00 Test Item Value Reference Range Interpretation Comments RBC (test code = RBC) 3.59 4.20-5.40 [facility] CenterAzhuexyFPSXSCMTPB1045-75-39 19:10:00 Test Item Value Reference Range Interpretation Comments Hgb (test code = Hgb) 10.2 12.0-16.0 [facility] CenterAlkhsesYUPHUJCQHW3531-75-90 19:10:00 Test Item Value Reference Range Interpretation Comments MCV (test code = MCV) 85.9 80.0-98.0 [facility] CenterNqccemnLIUMLVJTYN8523-83-87 19:10:00 Test Item Value Reference Range Interpretation Comments Eosinophils # (test code 0.1 See_Comment [A utomated message] The = Eosinophils #) system whic h generated this result tra nsmitted reference range : <=0.5. The reference r lv was not used to int erpret this result as normal/abnormal . [facility] CenterHjtpshyKLDDWUXQDF8673-31-16 19:10:00 Test Item Value Reference Range Interpretation Comments Monocytes # (test code 0.4 See_Comment [Aut omated message] The = Monocytes #) system which generated this result tra nsmitted reference range : <=0.8. The reference r lv was not used to int erpret this result as normal/abnormal . [facility] CenterMvenljpRQNLNJGSEX0840-98-20 19:10:00 Test Item Value Reference Range Interpretation Comments Segs-Bands # (test code = Segs-Bands #) 4.0 1.5-8.1 [facility] CenterHhayegxNAZPLTZAEX0079-52-67 19:10:00 Test Item Value Reference Range Interpretation Comments Lymphocytes # (test code = Lymphocytes 1.5 1.0-5.5 #) [facility] CenterQrnywyiPUMVJLVFTD9666-92-26 19:10:00 Test Item Value Reference Range Interpretation Comments Basophils # (test code 0.0 See_Comment [Aut omated message] The = Basophils #) system which generated this result tra nsmitted reference range : <=0.2. The reference r lv was not used to int erpret this result as normal/abnormal . [facility] CenterRacyeoaAOOKTSYMMA8506-09-08 19:10:00 Test Item Value Reference Range Interpretation Comments Lymphocytes (test code = Lymphocytes) 25.0 20.0-40.0 [facility] CenterCgzjvumHDNRVBEWTI2262-06-39 19:10:00 Test Item Value Reference Range Interpretation Comments Monocytes (test code = Monocytes) 6.9 2.0-12.0 [facility] CenterZnuqnsrUOJZECHDSV1951-00-73 19:10:00 Test Item Value Reference Range Interpretation Comments Segs (test code = Segs) 65.5 45.0-75.0 [facility] CenterAgdcsjpCOJWCJYXWR2852-32-68 19:10:00 Test Item Value Reference Range Interpretation Comments Basophils (test code = 0.6 See_Comment [Aut omated message] The Basophils) system which ge nerated this result tra nsmitted reference range : <=1.0. The reference r lv was not used to int erpret this result as normal/abnormal . [facility] CenterBztoyvoZVWTHOZUGZ1525-25-94 19:10:00 Test Item Value Reference Range Interpretation Comments Eosinophils (test code = 2.0 See_Comment [A utomated message] The Eosinophils) system which ge nerated this result tra nsmitted reference range : <=4.0. The reference r lv was not used to int erpret this result as normal/abnormal . [facility] CenterEjuewsqSLNFQFZVHZ3082-52-97 19:10:00 Test Item Value Reference Range Interpretation Comments WBC (test code = WBC) 6.1 3.7-10.4 [facility] CenterIqsbdglBSWBZTQDII7370-16-44 19:10:00 Test Item Value Reference Range Interpretation Comments MPV (test code = MPV) 7.9 7.4-10.4 [facility] CenterCzvpmskXEVXUNWQKR6663-00-74 19:10:00 Test Item Value Reference Range Interpretation Comments Platelet (test code = Platelet) 226 133-450 [facility] CenterRdwhudcGCJRVPHBYU0837-97-23 19:10:00 Test Item Value Reference Range Interpretation Comments MCH (test code = MCH) 28.5 pg 27.0-31.0 [facility] CenterRyuwysaAPTSKFRMAJ5732-84-14 19:10:00 Test Item Value Reference Range Interpretation Comments RDW (test code = RDW) 14.8 11.5-14.5 [facility] CenterOkeautyUCQLFNSTTR5107-76-52 19:10:00 Test Item Value Reference Range Interpretation Comments MCHC (test code = MCHC) 33.2 32.0-36.0 [facility] CenterAvthgtwLRYYHQANEX7055-08-51 19:10:00 Test Item Value Reference Range Interpretation Comments Hct (test code = Hct) 30.8 36.0-48.0 [facility] CenterTbwmiuvXSCQMMGPOD3179-98-36 19:10:00 Test Item Value Reference Range Interpretation Comments RBC (test code = RBC) 3.59 4.20-5.40 [facility] CenterRalabpdWOUUXUWWYN9522-30-72 19:10:00 Test Item Value Reference Range Interpretation Comments Hgb (test code = Hgb) 10.2 12.0-16.0 [facility] CenterRkmtjliTMBNJRMDAJ9384-23-84 19:10:00 Test Item Value Reference Range Interpretation Comments MCV (test code = MCV) 85.9 80.0-98.0 [facility] CenterZguskiyIZOSBGJIMP4547-61-71 19:10:00 Test Item Value Reference Range Interpretation Comments Eosinophils # (test code 0.1 See_Comment [A utomated message] The = Eosinophils #) system whic h generated this result tra nsmitted reference range : <=0.5. The reference r lv was not used to int erpret this result as normal/abnormal . [facility] CenterOrqzertRVDDMDAAHD5091-74-73 19:10:00 Test Item Value Reference Range Interpretation Comments Monocytes # (test code 0.4 See_Comment [Aut omated message] The = Monocytes #) system which generated this result tra nsmitted reference range : <=0.8. The reference r lv was not used to int erpret this result as normal/abnormal . [facility] CenterLeyzwvrNCEUAOMLLP5084-84-86 19:10:00 Test Item Value Reference Range Interpretation Comments Segs-Bands # (test code = Segs-Bands #) 4.0 1.5-8.1 [facility] CenterVumxztvLDVLCBQFYK2504-25-58 19:10:00 Test Item Value Reference Range Interpretation Comments Lymphocytes # (test code = Lymphocytes 1.5 1.0-5.5 #) [facility] CenterSzcwjxcFZOBARWWUZ1663-10-86 19:10:00 Test Item Value Reference Range Interpretation Comments Basophils # (test code 0.0 See_Comment [Aut omated message] The = Basophils #) system which generated this result tra nsmitted reference range : <=0.2. The reference r lv was not used to int erpret this result as normal/abnormal . [facility] CenterHzafojgCEYXRDVTIW1134-99-59 19:10:00 Test Item Value Reference Range Interpretation Comments Lymphocytes (test code = Lymphocytes) 25.0 20.0-40.0 [facility] CenterUgoasnyUUYAPBQQTY5421-20-28 19:10:00 Test Item Value Reference Range Interpretation Comments Monocytes (test code = Monocytes) 6.9 2.0-12.0 [facility] CenterEvdrkmmYURFSHGZDX0802-23-23 19:10:00 Test Item Value Reference Range Interpretation Comments Segs (test code = Segs) 65.5 45.0-75.0 [facility] CenterNcpvnxgINHCIUEATT2823-34-01 19:10:00 Test Item Value Reference Range Interpretation Comments Basophils (test code = 0.6 See_Comment [Aut omated message] The Basophils) system which ge nerated this result tra nsmitted reference range : <=1.0. The reference r lv was not used to int erpret this result as normal/abnormal . [facility] CenterEyosrmnTMCCTHPQAI3317-65-95 19:10:00 Test Item Value Reference Range Interpretation Comments Eosinophils (test code = 2.0 See_Comment [A utomated message] The Eosinophils) system which ge nerated this result tra nsmitted reference range : <=4.0. The reference r lv was not used to int erpret this result as normal/abnormal . [facility] CenterMmharzdPSBPHLDNFJ8810-20-55 19:10:00 Test Item Value Reference Range Interpretation Comments WBC (test code = WBC) 6.1 3.7-10.4 [facility] CenterPhemrbtJUGEDUKICU4722-05-41 19:10:00 Test Item Value Reference Range Interpretation Comments MPV (test code = MPV) 7.9 7.4-10.4 [facility] CenterTkidecsAURWJQKPFI6685-18-72 19:10:00 Test Item Value Reference Range Interpretation Comments Platelet (test code = Platelet) 226 133-450 [facility] CenterGqoajciTMHRULFNKG9163-50-51 19:10:00 Test Item Value Reference Range Interpretation Comments MCH (test code = MCH) 28.5 pg 27.0-31.0 [facility] CenterTyjyvuoPXRYNBYLBC0375-01-60 19:10:00 Test Item Value Reference Range Interpretation Comments RDW (test code = RDW) 14.8 11.5-14.5 [facility] CenterXurvcfoYBHJENZYHX6950-33-83 19:10:00 Test Item Value Reference Range Interpretation Comments MCHC (test code = MCHC) 33.2 32.0-36.0 [facility] CenterFdjvkyaKHCXCXHDAC4820-27-52 19:10:00 Test Item Value Reference Range Interpretation Comments Hct (test code = Hct) 30.8 36.0-48.0 [facility] CenterHeentagXBBGBHYCQI2470-47-74 19:10:00 Test Item Value Reference Range Interpretation Comments RBC (test code = RBC) 3.59 4.20-5.40 [facility] CenterFveswzfFFYNREUZKU8123-76-71 19:10:00 Test Item Value Reference Range Interpretation Comments Hgb (test code = Hgb) 10.2 12.0-16.0 [facility] CenterUsjrqvhFAHDWCLAQX5801-20-61 19:10:00 Test Item Value Reference Range Interpretation Comments MCV (test code = MCV) 85.9 80.0-98.0 [facility] CenterJmqkphbUQUDMTLYGE5165-49-59 19:10:00 Test Item Value Reference Range Interpretation Comments Eosinophils # (test code 0.1 See_Comment [A utomated message] The = Eosinophils #) system whic h generated this result tra nsmitted reference range : <=0.5. The reference r lv was not used to int erpret this result as normal/abnormal . [facility] CenterDxmybwtGDOQADOKFM5714-38-72 19:10:00 Test Item Value Reference Range Interpretation Comments Monocytes # (test code 0.4 See_Comment [Aut omated message] The = Monocytes #) system which generated this result tra nsmitted reference range : <=0.8. The reference r lv was not used to int erpret this result as normal/abnormal . [facility] CenterWzyajwrZMHGIXPYMS8525-28-60 19:10:00 Test Item Value Reference Range Interpretation Comments Segs-Bands # (test code = Segs-Bands #) 4.0 1.5-8.1 [facility] CenterDbfflknBTMLCPUIFV8268-76-32 19:10:00 Test Item Value Reference Range Interpretation Comments Lymphocytes # (test code = Lymphocytes 1.5 1.0-5.5 #) [facility] CenterGzgplmaGBZHYEGRTU7061-82-16 19:10:00 Test Item Value Reference Range Interpretation Comments Basophils # (test code 0.0 See_Comment [Aut omated message] The = Basophils #) system which generated this result tra nsmitted reference range : <=0.2. The reference r lv was not used to int erpret this result as normal/abnormal . [facility] CenterJzjcfyjCQVMHXODYD6137-45-43 19:10:00 Test Item Value Reference Range Interpretation Comments Lymphocytes (test code = Lymphocytes) 25.0 20.0-40.0 [facility] CenterByrgjfwHZVKULWQVQ2145-15-40 19:10:00 Test Item Value Reference Range Interpretation Comments Monocytes (test code = Monocytes) 6.9 2.0-12.0 [facility] CenterWbcbpqfMNCCWGEGGV9179-36-61 19:10:00 Test Item Value Reference Range Interpretation Comments Segs (test code = Segs) 65.5 45.0-75.0 [facility] CenterSoqsegsXRXTZSDQQC9438-91-61 19:10:00 Test Item Value Reference Range Interpretation Comments Basophils (test code = 0.6 See_Comment [Aut omated message] The Basophils) system which ge nerated this result tra nsmitted reference range : <=1.0. The reference r lv was not used to int erpret this result as normal/abnormal . [facility] CenterTemdkcgVUHRKOSXAK7623-97-40 19:10:00 Test Item Value Reference Range Interpretation Comments Eosinophils (test code = 2.0 See_Comment [A utomated message] The Eosinophils) system which ge nerated this result tra nsmitted reference range : <=4.0. The reference r lv was not used to int erpret this result as normal/abnormal . [facility] CenterQxrgmneNSUTWAGTLN9464-74-67 19:10:00 Test Item Value Reference Range Interpretation Comments WBC (test code = WBC) 6.1 3.7-10.4 [facility] CenterSivmcmxIMNTWWEUND9600-89-47 19:10:00 Test Item Value Reference Range Interpretation Comments MPV (test code = MPV) 7.9 7.4-10.4 [facility] CenterLjtdioqAYXPLYKLIH7295-16-97 19:10:00 Test Item Value Reference Range Interpretation Comments Platelet (test code = Platelet) 226 133-450 [facility] CenterNyeagweEEDPELYRWQ5429-76-56 19:10:00 Test Item Value Reference Range Interpretation Comments MCH (test code = MCH) 28.5 pg 27.0-31.0 [facility] CenterFaootyhOBUKWLFCYK1217-36-54 19:10:00 Test Item Value Reference Range Interpretation Comments RDW (test code = RDW) 14.8 11.5-14.5 [facility] CenterXtmghloRGTCGRHKZN8591-27-47 19:10:00 Test Item Value Reference Range Interpretation Comments MCHC (test code = MCHC) 33.2 32.0-36.0 [facility] CenterJtrceqyLEXZONRWIX2790-20-21 19:10:00 Test Item Value Reference Range Interpretation Comments Hct (test code = Hct) 30.8 36.0-48.0 [facility] CenterPwaoogwVCGAOHDETL2847-08-63 19:10:00 Test Item Value Reference Range Interpretation Comments RBC (test code = RBC) 3.59 4.20-5.40 [facility] CenterTeypqzdKJGVHEVFEQ4504-12-63 19:10:00 Test Item Value Reference Range Interpretation Comments Hgb (test code = Hgb) 10.2 12.0-16.0 [facility] CenterDtbszmsZVRTVCZSGA5035-12-69 19:10:00 Test Item Value Reference Range Interpretation Comments MCV (test code = MCV) 85.9 80.0-98.0 [facility] CenterWjichrbVPEVOQYBTB5958-34-23 19:10:00 Test Item Value Reference Range Interpretation Comments Eosinophils # (test code 0.1 See_Comment [A utomated message] The = Eosinophils #) system whic h generated this result tra nsmitted reference range : <=0.5. The reference r lv was not used to int erpret this result as normal/abnormal . [facility] CenterDzxiyjiDVYDBXHJWT1515-58-23 19:10:00 Test Item Value Reference Range Interpretation Comments Monocytes # (test code 0.4 See_Comment [Aut omated message] The = Monocytes #) system which generated this result tra nsmitted reference range : <=0.8. The reference r lv was not used to int erpret this result as normal/abnormal . [facility] CenterBadbpnpRIUZFQVMGL8709-40-45 19:10:00 Test Item Value Reference Range Interpretation Comments Segs-Bands # (test code = Segs-Bands #) 4.0 1.5-8.1 [facility] CenterNzjoyidNXTOTMGWGZ6138-53-45 19:10:00 Test Item Value Reference Range Interpretation Comments Lymphocytes # (test code = Lymphocytes 1.5 1.0-5.5 #) [facility] CenterBcsauspEBZCHWDASR1696-78-00 19:10:00 Test Item Value Reference Range Interpretation Comments Basophils # (test code 0.0 See_Comment [Aut omated message] The = Basophils #) system which generated this result tra nsmitted reference range : <=0.2. The reference r lv was not used to int erpret this result as normal/abnormal . [facility] CenterJkkpcwqUJZJFBGRFQ8546-98-79 19:10:00 Test Item Value Reference Range Interpretation Comments Lymphocytes (test code = Lymphocytes) 25.0 20.0-40.0 [facility] CenterNgyxdipLURKAKTADJ0128-74-79 19:10:00 Test Item Value Reference Range Interpretation Comments Monocytes (test code = Monocytes) 6.9 2.0-12.0 [facility] CenterKidakdpCQZHVAXZZE3404-25-88 19:10:00 Test Item Value Reference Range Interpretation Comments Segs (test code = Segs) 65.5 45.0-75.0 [facility] CenterDgdgocnPLRXWQDHEG2963-32-32 19:10:00 Test Item Value Reference Range Interpretation Comments Basophils (test code = 0.6 See_Comment [Aut omated message] The Basophils) system which ge nerated this result tra nsmitted reference range : <=1.0. The reference r lv was not used to int erpret this result as normal/abnormal . [facility] CenterPmthycnUYRBOZDXMA3527-42-72 19:10:00 Test Item Value Reference Range Interpretation Comments Eosinophils (test code = 2.0 See_Comment [A utomated message] The Eosinophils) system which ge nerated this result tra nsmitted reference range : <=4.0. The reference r lv was not used to int erpret this result as normal/abnormal . [place] 649917-02-20 19:10:00 Test Item Value Reference Range Interpretation Comments WBC (test code = WBC) 6.1 3.7-10.4 [facility] CenterTwzxlqkNVNGBLVDBB1991-11-79 19:10:00 Test Item Value Reference Range Interpretation Comments MPV (test code = MPV) 7.9 7.4-10.4 [facility] CenterDtlvyqeYHIQFJWHXP2437-99-07 19:10:00 Test Item Value Reference Range Interpretation Comments Platelet (test code = Platelet) 226 133-450 [facility] CenterMkiqzfmOTJPNORNKS3007-88-27 19:10:00 Test Item Value Reference Range Interpretation Comments MCH (test code = MCH) 28.5 pg 27.0-31.0 [facility] CenterYfbdjvhDXYFCADMZX9693-29-05 19:10:00 Test Item Value Reference Range Interpretation Comments RDW (test code = RDW) 14.8 11.5-14.5 [facility] CenterNuawacbJKTHFWWJHE4588-60-54 19:10:00 Test Item Value Reference Range Interpretation Comments MCHC (test code = MCHC) 33.2 32.0-36.0 [facility] CenterQeifnpbFMZWKVWXMD1786-65-81 19:10:00 Test Item Value Reference Range Interpretation Comments Hct (test code = Hct) 30.8 36.0-48.0 [facility] CenterDdjexdpWKOPRCWLEJ7985-48-04 19:10:00 Test Item Value Reference Range Interpretation Comments RBC (test code = RBC) 3.59 4.20-5.40 [facility] CenterVcryirjLSUKAAYKXP5063-87-28 19:10:00 Test Item Value Reference Range Interpretation Comments Hgb (test code = Hgb) 10.2 12.0-16.0 [facility] CenterZwnqfjaFDOTKJMINN9663-61-98 19:10:00 Test Item Value Reference Range Interpretation Comments MCV (test code = MCV) 85.9 80.0-98.0 [facility] CenterMgnanxkEZYRSIIICZ5714-17-49 19:10:00 Test Item Value Reference Range Interpretation Comments Eosinophils # (test code 0.1 See_Comment [A utomated message] The = Eosinophils #) system whic h generated this result tra nsmitted reference range : <=0.5. The reference r lv was not used to int erpret this result as normal/abnormal . [facility] CenterNdbyycrORNVGEYHGM4615-17-99 19:10:00 Test Item Value Reference Range Interpretation Comments Monocytes # (test code 0.4 See_Comment [Aut omated message] The = Monocytes #) system which generated this result tra nsmitted reference range : <=0.8. The reference r lv was not used to int erpret this result as normal/abnormal . [facility] CenterJpdwpetVAMXGNXOJD9986-96-34 19:10:00 Test Item Value Reference Range Interpretation Comments Segs-Bands # (test code = Segs-Bands #) 4.0 1.5-8.1 [facility] CenterDulhchrKZGYPNJYEN2679-68-84 19:10:00 Test Item Value Reference Range Interpretation Comments Lymphocytes # (test code = Lymphocytes 1.5 1.0-5.5 #) [facility] CenterObhcuxgPASPTNHOQF4591-26-94 19:10:00 Test Item Value Reference Range Interpretation Comments Basophils # (test code 0.0 See_Comment [Aut omated message] The = Basophils #) system which generated this result tra nsmitted reference range : <=0.2. The reference r lv was not used to int erpret this result as normal/abnormal . [facility] CenterHcizgufWZNTOPDVMT2154-23-52 19:10:00 Test Item Value Reference Range Interpretation Comments Lymphocytes (test code = Lymphocytes) 25.0 20.0-40.0 [facility] CenterLgkkuyoZLNHOIXUTH0563-67-19 19:10:00 Test Item Value Reference Range Interpretation Comments Monocytes (test code = Monocytes) 6.9 2.0-12.0 [facility] CenterBoyswqyHCNEVERNEA7183-44-27 19:10:00 Test Item Value Reference Range Interpretation Comments Segs (test code = Segs) 65.5 45.0-75.0 [facility] CenterUhogmbjCYFRMNZCRY0103-49-78 19:10:00 Test Item Value Reference Range Interpretation Comments Basophils (test code = 0.6 See_Comment [Aut omated message] The Basophils) system which ge nerated this result tra nsmitted reference range : <=1.0. The reference r lv was not used to int erpret this result as normal/abnormal . [facility] CenterWloipkvYCWJTMHPIZ8494-65-89 19:10:00 Test Item Value Reference Range Interpretation Comments Eosinophils (test code = 2.0 See_Comment [A utomated message] The Eosinophils) system which ge nerated this result tra nsmitted reference range : <=4.0. The reference r lv was not used to int erpret this result as normal/abnormal . [facility] CenterXebitlnLPYMXINXDD7577-19-12 19:10:00 Test Item Value Reference Range Interpretation Comments WBC (test code = WBC) 6.1 3.7-10.4 [place] 649917-02-20 19:10:00 Test Item Value Reference Range Interpretation Comments MPV (test code = MPV) 7.9 7.4-10.4 [facility] CenterJbuxlepWNBVNYETJP0776-11-58 19:10:00 Test Item Value Reference Range Interpretation Comments Platelet (test code = Platelet) 226 133-450 [facility] CenterCgjuarbZJOHEZSNLD7348-33-10 19:10:00 Test Item Value Reference Range Interpretation Comments MCH (test code = MCH) 28.5 pg 27.0-31.0 [facility] CenterZezbwezYWRSAUJEFC7153-38-29 19:10:00 Test Item Value Reference Range Interpretation Comments RDW (test code = RDW) 14.8 11.5-14.5 [facility] CenterYpbhqskBQIFMRJDDO8609-65-24 19:10:00 Test Item Value Reference Range Interpretation Comments MCHC (test code = MCHC) 33.2 32.0-36.0 [facility] CenterZxvassdHIGRULKXNK1671-20-06 19:10:00 Test Item Value Reference Range Interpretation Comments Hct (test code = Hct) 30.8 36.0-48.0 [facility] CenterHuxtmulEUBVRVHOLO9206-93-72 19:10:00 Test Item Value Reference Range Interpretation Comments RBC (test code = RBC) 3.59 4.20-5.40 [facility] CenterRursymoYQUOZVSUGT7925-24-21 19:10:00 Test Item Value Reference Range Interpretation Comments Hgb (test code = Hgb) 10.2 12.0-16.0 [facility] CenterWadwgerBJGMAETMWA2420-45-86 19:10:00 Test Item Value Reference Range Interpretation Comments MCV (test code = MCV) 85.9 80.0-98.0 [facility] CenterMumvteqWOMQQWCQDB6798-45-12 19:10:00 Test Item Value Reference Range Interpretation Comments Eosinophils # (test code 0.1 See_Comment [A utomated message] The = Eosinophils #) system whic h generated this result tra nsmitted reference range : <=0.5. The reference r lv was not used to int erpret this result as normal/abnormal . [facility] CenterPcpuxncGVANTAYIGJ8197-55-50 19:10:00 Test Item Value Reference Range Interpretation Comments Monocytes # (test code 0.4 See_Comment [Aut omated message] The = Monocytes #) system which generated this result tra nsmitted reference range : <=0.8. The reference r lv was not used to int erpret this result as normal/abnormal . [facility] CenterDxjdwrtJAGSXFVWYT2039-84-30 19:10:00 Test Item Value Reference Range Interpretation Comments Segs-Bands # (test code = Segs-Bands #) 4.0 1.5-8.1 [facility] CenterVazlovbLUIWRDFNYQ3259-67-70 19:10:00 Test Item Value Reference Range Interpretation Comments Lymphocytes # (test code = Lymphocytes 1.5 1.0-5.5 #) [facility] CenterAszbworZBYOHNMMHV0672-77-41 19:10:00 Test Item Value Reference Range Interpretation Comments Basophils # (test code 0.0 See_Comment [Aut omated message] The = Basophils #) system which generated this result tra nsmitted reference range : <=0.2. The reference r lv was not used to int erpret this result as normal/abnormal . [facility] CenterNqfitbeBJAJWSVJVI3802-77-57 19:10:00 Test Item Value Reference Range Interpretation Comments Lymphocytes (test code = Lymphocytes) 25.0 20.0-40.0 [facility] CenterBxhzmpqSUVQJPOGTF3454-12-30 19:10:00 Test Item Value Reference Range Interpretation Comments Monocytes (test code = Monocytes) 6.9 2.0-12.0 [facility] CenterUbhhxxmFOKWFBVMZY7843-04-69 19:10:00 Test Item Value Reference Range Interpretation Comments Segs (test code = Segs) 65.5 45.0-75.0 [facility] CenterJzofogmZVINCJKGFI8721-70-10 19:10:00 Test Item Value Reference Range Interpretation Comments Basophils (test code = 0.6 See_Comment [Aut omated message] The Basophils) system which ge nerated this result tra nsmitted reference range : <=1.0. The reference r lv was not used to int erpret this result as normal/abnormal . [facility] CenterMguzfxsCYLNGVVJVJ2540-59-79 19:10:00 Test Item Value Reference Range Interpretation Comments Eosinophils (test code = 2.0 See_Comment [A utomated message] The Eosinophils) system which ge nerated this result tra nsmitted reference range : <=4.0. The reference r lv was not used to int erpret this result as normal/abnormal . [facility] CenterSfaozdaPCEJBJREGL8186-83-45 19:10:00 Test Item Value Reference Range Interpretation Comments WBC (test code = WBC) 6.1 3.7-10.4 [facility] CenterEccelkkQAJVKELWNI0163-81-29 19:10:00 Test Item Value Reference Range Interpretation Comments MPV (test code = MPV) 7.9 7.4-10.4 [facility] CenterTgrkkhvZFVWSQJMFW1051-34-81 19:10:00 Test Item Value Reference Range Interpretation Comments Platelet (test code = Platelet) 226 133-450 [facility] CenterOvytlcdFUTZGBDLDS5814-87-77 19:10:00 Test Item Value Reference Range Interpretation Comments MCH (test code = MCH) 28.5 pg 27.0-31.0 [facility] CenterEipipukDISKOZFOYT5522-55-73 19:10:00 Test Item Value Reference Range Interpretation Comments RDW (test code = RDW) 14.8 11.5-14.5 [facility] CenterVtldzriSYINATTSMO4729-27-00 19:10:00 Test Item Value Reference Range Interpretation Comments MCHC (test code = MCHC) 33.2 32.0-36.0 [facility] CenterAyvergnLJYWKEPVZL3915-40-30 19:10:00 Test Item Value Reference Range Interpretation Comments Hct (test code = Hct) 30.8 36.0-48.0 [facility] CenterZqbjucsGBFJLDXTIG6408-94-92 19:10:00 Test Item Value Reference Range Interpretation Comments RBC (test code = RBC) 3.59 4.20-5.40 [facility] CenterJzziteiKPEFQMTSFB6806-68-83 19:10:00 Test Item Value Reference Range Interpretation Comments Hgb (test code = Hgb) 10.2 12.0-16.0 [facility] CenterGgaxrkvFPORIBIXHJ6356-54-17 19:10:00 Test Item Value Reference Range Interpretation Comments MCV (test code = MCV) 85.9 80.0-98.0 [facility] CenterRfkbafvFMVSHFRKXQ6003-34-89 19:10:00 Test Item Value Reference Range Interpretation Comments Eosinophils # (test code 0.1 See_Comment [A utomated message] The = Eosinophils #) system whic h generated this result tra nsmitted reference range : <=0.5. The reference r lv was not used to int erpret this result as normal/abnormal . [facility] CenterMbovgyuWFZGYAAYEW6199-06-91 19:10:00 Test Item Value Reference Range Interpretation Comments Monocytes # (test code 0.4 See_Comment [Aut omated message] The = Monocytes #) system which generated this result tra nsmitted reference range : <=0.8. The reference r lv was not used to int erpret this result as normal/abnormal . [facility] CenterPvmailvDBOFRFZMRX8459-38-09 19:10:00 Test Item Value Reference Range Interpretation Comments Segs-Bands # (test code = Segs-Bands #) 4.0 1.5-8.1 [facility] CenterQyftgtuLZQPUQKYPZ7812-83-14 19:10:00 Test Item Value Reference Range Interpretation Comments Lymphocytes # (test code = Lymphocytes 1.5 1.0-5.5 #) [facility] CenterBayyqenRKWTLJXOLO0196-85-20 19:10:00 Test Item Value Reference Range Interpretation Comments Basophils # (test code 0.0 See_Comment [Aut omated message] The = Basophils #) system which generated this result tra nsmitted reference range : <=0.2. The reference r lv was not used to int erpret this result as normal/abnormal . [facility] CenterJjnyvtsYFYUUPAJQM0575-09-21 19:10:00 Test Item Value Reference Range Interpretation Comments Lymphocytes (test code = Lymphocytes) 25.0 20.0-40.0 [facility] CenterDwaitmaLGJIMGUJOE2188-73-32 19:10:00 Test Item Value Reference Range Interpretation Comments Monocytes (test code = Monocytes) 6.9 2.0-12.0 [facility] CenterScmrfszPIZSPBWOZN4014-99-10 19:10:00 Test Item Value Reference Range Interpretation Comments Segs (test code = Segs) 65.5 45.0-75.0 [facility] CenterDbyigkzHPVVRLYBIB2898-54-22 19:10:00 Test Item Value Reference Range Interpretation Comments Basophils (test code = 0.6 See_Comment [Aut omated message] The Basophils) system which ge nerated this result tra nsmitted reference range : <=1.0. The reference r lv was not used to int erpret this result as normal/abnormal . [facility] CenterYqwvkzdIAINOQNXIG0040-72-74 19:10:00 Test Item Value Reference Range Interpretation Comments Eosinophils (test code = 2.0 See_Comment [A utomated message] The Eosinophils) system which ge nerated this result tra nsmitted reference range : <=4.0. The reference r lv was not used to int erpret this result as normal/abnormal . [facility] CenterQrscwdzURJWLVWIZO8731-71-25 19:10:00 Test Item Value Reference Range Interpretation Comments WBC (test code = WBC) 6.1 3.7-10.4 [facility] CenterUyhzedpGESSCBAOIQ2078-59-19 19:10:00 Test Item Value Reference Range Interpretation Comments MPV (test code = MPV) 7.9 7.4-10.4 [facility] CenterNtrlwfmALUYCPDGPK0311-81-46 19:10:00 Test Item Value Reference Range Interpretation Comments Platelet (test code = Platelet) 226 133-450 [facility] CenterUpcpnpvHYLELIOYFV2966-31-75 19:10:00 Test Item Value Reference Range Interpretation Comments MCH (test code = MCH) 28.5 pg 27.0-31.0 [facility] CenterIrbhmynGPUGILSDQS7450-65-82 19:10:00 Test Item Value Reference Range Interpretation Comments RDW (test code = RDW) 14.8 11.5-14.5 [facility] CenterZmipwwsVCBMVFBXDI2913-90-74 19:10:00 Test Item Value Reference Range Interpretation Comments MCHC (test code = MCHC) 33.2 32.0-36.0 [facility] CenterHfoksmaATOCTHKRZQ4059-35-69 19:10:00 Test Item Value Reference Range Interpretation Comments Hct (test code = Hct) 30.8 36.0-48.0 [facility] CenterEftuamnSWIIICYEDS3047-37-80 19:10:00 Test Item Value Reference Range Interpretation Comments RBC (test code = RBC) 3.59 4.20-5.40 [facility] CenterUlrhmxnAFPRUGTIGI9678-00-53 19:10:00 Test Item Value Reference Range Interpretation Comments Hgb (test code = Hgb) 10.2 12.0-16.0 [facility] CenterZbenfssEFVZFPSHFN6780-76-58 19:10:00 Test Item Value Reference Range Interpretation Comments MCV (test code = MCV) 85.9 80.0-98.0 [facility] CenterPaocvokNJJAWKKENE7787-18-92 19:10:00 Test Item Value Reference Range Interpretation Comments Eosinophils # (test code 0.1 See_Comment [A utomated message] The = Eosinophils #) system ic h generated this result tra nsmitted reference range : <=0.5. The reference r lv was not used to int erpret this result as normal/abnormal . [facility] CenterTovosbcPDVMLQUZBB8415-33-65 19:10:00 Test Item Value Reference Range Interpretation Comments Monocytes # (test code 0.4 See_Comment [Aut omated message] The = Monocytes #) system which generated this result tra nsmitted reference range : <=0.8. The reference r lv was not used to int erpret this result as normal/abnormal . [facility] CenterGgandbdJYOYNDDCOM6119-47-80 19:10:00 Test Item Value Reference Range Interpretation Comments Segs-Bands # (test code = Segs-Bands #) 4.0 1.5-8.1 [facility] CenterTkdiskiSBRVLEMENZ4888-75-91 19:10:00 Test Item Value Reference Range Interpretation Comments Lymphocytes # (test code = Lymphocytes 1.5 1.0-5.5 #) [facility] CenterMdogdmdJFFPKHGGWS4009-48-23 19:10:00 Test Item Value Reference Range Interpretation Comments Basophils # (test code 0.0 See_Comment [Aut omated message] The = Basophils #) system which generated this result tra nsmitted reference range : <=0.2. The reference r lv was not used to int erpret this result as normal/abnormal . [facility] CenterGoxwwmcSTZMNVHXVL6017-64-04 19:10:00 Test Item Value Reference Range Interpretation Comments Lymphocytes (test code = Lymphocytes) 25.0 20.0-40.0 [facility] CenterSdkbnewDGEQOCSTOK5824-11-33 19:10:00 Test Item Value Reference Range Interpretation Comments Monocytes (test code = Monocytes) 6.9 2.0-12.0 [facility] CenterZkgcsumKRKKHEJSMB2893-90-13 19:10:00 Test Item Value Reference Range Interpretation Comments Segs (test code = Segs) 65.5 45.0-75.0 [facility]MvgpjceSFOEUSZLZK1652-50-30 19:10:00 Test Item Value Reference Range Interpretation Comments Basophils (test code = 0.6 See_Comment [Aut omated message] The Basophils) system which ge nerated this result tra nsmitted reference range : <=1.0. The reference r lv was not used to int erpret this result as normal/abnormal . [facility] CenterVkfzmhvPFKQWPSSLA4674-23-72 19:10:00 Test Item Value Reference Range Interpretation Comments Eosinophils (test code = 2.0 See_Comment [A utomated message] The Eosinophils) system which ge nerated this result tra nsmitted reference range : <=4.0. The reference r lv was not used to int erpret this result as normal/abnormal . [facility] CenterPwchdjdSBJHQMKERT7675-59-90 19:10:00 Test Item Value Reference Range Interpretation Comments WBC (test code = WBC) 6.1 3.7-10.4 [facility] CenterKxvoxqqSXKWMJWWFV6795-05-59 19:10:00 Test Item Value Reference Range Interpretation Comments MPV (test code = MPV) 7.9 7.4-10.4 [facility] CenterXbxlnhfQFPHIHTNBW2134-91-91 19:10:00 Test Item Value Reference Range Interpretation Comments Platelet (test code = Platelet) 226 133-450 [facility] CenterPkuszeyWMPWXIEOFK6671-48-83 19:10:00 Test Item Value Reference Range Interpretation Comments MCH (test code = MCH) 28.5 pg 27.0-31.0 [facility] CenterIcjpejxAFQEJFJINC9311-81-66 19:10:00 Test Item Value Reference Range Interpretation Comments RDW (test code = RDW) 14.8 11.5-14.5 [facility] CenterJxohenxBAAYLOEOWV4526-73-06 19:10:00 Test Item Value Reference Range Interpretation Comments MCHC (test code = MCHC) 33.2 32.0-36.0 [facility] CenterIxniroxIGDXTCETPJ5496-73-07 19:10:00 Test Item Value Reference Range Interpretation Comments Hct (test code = Hct) 30.8 36.0-48.0 [facility] CenterJcjwvfvRGFVCEJSNV4992-41-23 19:10:00 Test Item Value Reference Range Interpretation Comments RBC (test code = RBC) 3.59 4.20-5.40 [facility] CenterBebiykjXQACFCKCHW9601-50-41 19:10:00 Test Item Value Reference Range Interpretation Comments Hgb (test code = Hgb) 10.2 12.0-16.0 [facility] CenterOmmeksnWGBQPVHOPF8163-84-07 19:10:00 Test Item Value Reference Range Interpretation Comments MCV (test code = MCV) 85.9 80.0-98.0 [facility] CenterRnlghroAQNYYCXPUG4326-61-73 19:10:00 Test Item Value Reference Range Interpretation Comments Eosinophils # (test code 0.1 See_Comment [A utomated message] The = Eosinophils #) system whic h generated this result tra nsmitted reference range : <=0.5. The reference r lv was not used to int erpret this result as normal/abnormal . [facility] CenterSebxxtsFSIYUBXXJQ9957-36-19 19:10:00 Test Item Value Reference Range Interpretation Comments Monocytes # (test code 0.4 See_Comment [Aut omated message] The = Monocytes #) system which generated this result tra nsmitted reference range : <=0.8. The reference r lv was not used to int erpret this result as normal/abnormal . [facility] CenterFlswgksMNXKPNJDIS8522-02-16 19:10:00 Test Item Value Reference Range Interpretation Comments Segs-Bands # (test code = Segs-Bands #) 4.0 1.5-8.1 [facility] CenterUtaeffxNESBUEAEMI4629-05-42 19:10:00 Test Item Value Reference Range Interpretation Comments Lymphocytes # (test code = Lymphocytes 1.5 1.0-5.5 #) [facility] CenterKxfjzsbIXPZBFZWIQ9312-81-10 19:10:00 Test Item Value Reference Range Interpretation Comments Basophils # (test code 0.0 See_Comment [Aut omated message] The = Basophils #) system which generated this result tra nsmitted reference range : <=0.2. The reference r lv was not used to int erpret this result as normal/abnormal . [facility] CenterCwgfjkkYTNSAWEECC7924-77-06 19:10:00 Test Item Value Reference Range Interpretation Comments Lymphocytes (test code = Lymphocytes) 25.0 20.0-40.0 [facility] CenterDbxalcuNXAXSJFRRX9416-76-31 19:10:00 Test Item Value Reference Range Interpretation Comments Monocytes (test code = Monocytes) 6.9 2.0-12.0 [facility] CenterYolgrjcPHMMATVPNB7204-50-12 19:10:00 Test Item Value Reference Range Interpretation Comments Segs (test code = Segs) 65.5 45.0-75.0 [facility] CenterYigenfqBFGUWUEJBC2609-22-52 19:10:00 Test Item Value Reference Range Interpretation Comments Basophils (test code = 0.6 See_Comment [Aut omated message] The Basophils) system which ge nerated this result tra nsmitted reference range : <=1.0. The reference r lv was not used to int erpret this result as normal/abnormal . [facility] CenterTyaypwzSZUXRWQYVJ6841-04-28 19:10:00 Test Item Value Reference Range Interpretation Comments Eosinophils (test code = 2.0 See_Comment [A utomated message] The Eosinophils) system which ge nerated this result tra nsmitted reference range : <=4.0. The reference r lv was not used to int erpret this result as normal/abnormal . [facility] CenterKquujdbYAQAKBCUFZ0851-88-51 19:07:00 Test Item Value Reference Range Interpretation Comments Sed Rate (test code = 84 See_Comment [Auto mated message] The Sed Rate) system which ge nerated this result transmit neli reference range : <=20. The reference range was not used to interpr et this result as felipe l/abnormal. [facility] CenterCugcqdqLILMUNZKHY0778-35-24 19:07:00 Test Item Value Reference Range Interpretation Comments Sed Rate (test code = 84 See_Comment [Auto mated message] The Sed Rate) system which ge nerated this result transmit neli reference range : <=20. The reference range was not used to interpr et this result as felipe l/abnormal. [facility] CenterUdkqpeyBJUFGLTIYA2946-44-58 19:07:00 Test Item Value Reference Range Interpretation Comments Sed Rate (test code = 84 See_Comment [Auto mated message] The Sed Rate) system which ge nerated this result transmit neli reference range : <=20. The reference range was not used to interpr et this result as felipe l/abnormal. [facility] CenterPiquyzaDOYWOYREMA3104-90-53 19:07:00 Test Item Value Reference Range Interpretation Comments Sed Rate (test code = 84 See_Comment [Auto mated message] The Sed Rate) system which ge nerated this result transmit neli reference range : <=20. The reference range was not used to interpr et this result as felipe l/abnormal. [facility] CenterOmnvwfiBSNXNRKRRX5705-18-37 19:07:00 Test Item Value Reference Range Interpretation Comments Sed Rate (test code = 84 See_Comment [Auto mated message] The Sed Rate) system which ge nerated this result transmit neli reference range : <=20. The reference range was not used to interpr et this result as felipe l/abnormal. [facility] CenterNeyfjubNEMQEPBDJR6738-43-15 19:07:00 Test Item Value Reference Range Interpretation Comments Sed Rate (test code = 84 See_Comment [Auto mated message] The Sed Rate) system which ge nerated this result transmit neli reference range : <=20. The reference range was not used to interpr et this result as felipe l/abnormal. [facility] CenterOvvbmwdUHWPHCGCIO7124-20-16 19:07:00 Test Item Value Reference Range Interpretation Comments Sed Rate (test code = 84 See_Comment [Auto mated message] The Sed Rate) system which ge nerated this result transmit neli reference range : <=20. The reference range was not used to interpr et this result as felipe l/abnormal. [facility] CenterOqjbhhbJLLLJVWGCF9602-47-05 19:07:00 Test Item Value Reference Range Interpretation Comments Sed Rate (test code = 84 See_Comment [Auto mated message] The Sed Rate) system which ge nerated this result transmit neli reference range : <=20. The reference range was not used to interpr et this result as felipe l/abnormal. [facility] CenterCaeobbyOQLJELTQEF9487-47-21 19:07:00 Test Item Value Reference Range Interpretation Comments Sed Rate (test code = 84 See_Comment [Auto mated message] The Sed Rate) system which ge nerated this result transmit neli reference range : <=20. The reference range was not used to interpr et this result as felipe l/abnormal. [facility] CenterBkpeggfLJULYQOJCJ8751-73-17 19:07:00 Test Item Value Reference Range Interpretation Comments Sed Rate (test code = 84 See_Comment [Auto mated message] The Sed Rate) system which ge nerated this result transmit neli reference range : <=20. The reference range was not used to interpr et this result as felipe l/abnormal. [facility]2017-02-20 18:33:00 Test Item Value Reference Range Interpretation Comments Creatinine Lvl (test code = Creatinine 0.74 0.50-1.40 Lvl) [facility]2017-02-20 18:33:00 Test Item Value Reference Range Interpretation Comments Potassium Lvl (test code = Potassium 5.0 3.5-5.1 Lvl) [facility]2017-02-20 18:33:00 Test Item Value Reference Range Interpretation Comments Sodium Lvl (test code = Sodium Lvl) 136 135-145 [facility]2017-02-20 18:33:00 Test Item Value Reference Range Interpretation Comments Total Protein (test code = Total 7.7 6.4-8.4 Protein) [facility]2017-02-20 18:33:00 Test Item Value Reference Range Interpretation Comments Calcium Lvl (test code = Calcium Lvl) 8.7 8.5-10.5 [facility]2017-02-20 18:33:00 Test Item Value Reference Range Interpretation Comments ALT (test code = ALT) 21 See_Comment [Auto mated message] The system which ge nerated this result transmit neli reference range : <=65. The reference range was not used to interpr et this result as felipe l/abnormal. [facility]2017-02-20 18:33:00 Test Item Value Reference Range Interpretation Comments Albumin Lvl (test code = Albumin Lvl) 3.0 3.5-5.0 [facility]2017-02-20 18:33:00 Test Item Value Reference Range Interpretation Comments AST (test code = AST) 27 See_Comment [Auto mated message] The system which ge nerated this result transmit neli reference range : <=37. The reference range was not used to interpr et this result as felipe l/abnormal. [facility]AY4975[facility]57-03 18:33:00 Test Item Value Reference Range Interpretation Comments C-REACTIVE PROTEIN (test code = 44.4 C-REACTIVE PROTEIN) [facility]2017-02-20 18:33:00 Test Item Value Reference Range Interpretation Comments Lactic Acid Lvl (test code = Lactic 1.3 0.5-2.2 Acid Lvl) [facility]2017-02-20 18:33:00 Test Item Value Reference Range Interpretation Comments eGFR (test code = eGFR) 91 [facility]2017-02-20 18:33:00 Test Item Value Reference Range Interpretation Comments B/C Ratio (test code = B/C Ratio) 19 6-25 [facility]2017-02-20 18:33:00 Test Item Value Reference Range Interpretation Comments A/G Ratio (test code = A/G Ratio) 0.6 0.7-1.6 [facility]2017-02-20 18:33:00 Test Item Value Reference Range Interpretation Comments Globulin (test code = Globulin) 4.7 2.7-4.2 [facility]2017-02-20 18:33:00 Test Item Value Reference Range Interpretation Comments AGAP (test code = AGAP) 12.0 10.0-20.0 [facility]2017-02-20 18:33:00 Test Item Value Reference Range Interpretation Comments Bili Total (test code = Bili Total) 0.2 0.2-1.3 [facility]2017-02-20 18:33:00 Test Item Value Reference Range Interpretation Comments Alk Phos (test code = Alk Phos) 116 39-136 [facility]2017-02-20 18:33:00 Test Item Value Reference Range Interpretation Comments CO2 (test code = CO2) 30 24-32 [facility]2017-02-20 18:33:00 Test Item Value Reference Range Interpretation Comments Chloride Lvl (test code = Chloride Lvl) 99 95-109 [facility]2017-02-20 18:33:00 Test Item Value Reference Range Interpretation Comments BUN (test code = BUN) 14 7-22 [facility]2017-02-20 18:33:00 Test Item Value Reference Range Interpretation Comments Glucose Lvl (test code = Glucose Lvl) 128 70-99 [facility]2017-02-20 18:33:00 Test Item Value Reference Range Interpretation Comments Creatinine Lvl (test code = Creatinine 0.74 0.50-1.40 Lvl) [facility]2017-02-20 18:33:00 Test Item Value Reference Range Interpretation Comments Potassium Lvl (test code = Potassium 5.0 3.5-5.1 Lvl) [facility]2017-02-20 18:33:00 Test Item Value Reference Range Interpretation Comments Sodium Lvl (test code = Sodium Lvl) 136 135-145 [facility]2017-02-20 18:33:00 Test Item Value Reference Range Interpretation Comments Total Protein (test code = Total 7.7 6.4-8.4 Protein) [facility]2017-02-20 18:33:00 Test Item Value Reference Range Interpretation Comments Calcium Lvl (test code = Calcium Lvl) 8.7 8.5-10.5 [facility]2017-02-20 18:33:00 Test Item Value Reference Range Interpretation Comments ALT (test code = ALT) 21 See_Comment [Auto mated message] The system which ge nerated this result transmit neli reference range : <=65. The reference range was not used to interpr et this result as felipe l/abnormal. [facility]2017-02-20 18:33:00 Test Item Value Reference Range Interpretation Comments Albumin Lvl (test code = Albumin Lvl) 3.0 3.5-5.0 [facility]2017-02-20 18:33:00 Test Item Value Reference Range Interpretation Comments AST (test code = AST) 27 See_Comment [Auto mated message] The system which ge nerated this result transmit neli reference range : <=37. The reference range was not used to interpr et this result as felipe l/abnormal. [id number] 18:33:00 Test Item Value Reference Range Interpretation Comments C-REACTIVE PROTEIN (test code = 44.4 C-REACTIVE PROTEIN) [facility]2017-02-20 18:33:00 Test Item Value Reference Range Interpretation Comments Lactic Acid Lvl (test code = Lactic 1.3 0.5-2.2 Acid Lvl) [facility]2017-02-20 18:33:00 Test Item Value Reference Range Interpretation Comments eGFR (test code = eGFR) 91 [facility]2017-02-20 18:33:00 Test Item Value Reference Range Interpretation Comments B/C Ratio (test code = B/C Ratio) 19 6-25 [facility]2017-02-20 18:33:00 Test Item Value Reference Range Interpretation Comments A/G Ratio (test code = A/G Ratio) 0.6 0.7-1.6 [facility]2017-02-20 18:33:00 Test Item Value Reference Range Interpretation Comments Globulin (test code = Globulin) 4.7 2.7-4.2 [facility]2017-02-20 18:33:00 Test Item Value Reference Range Interpretation Comments AGAP (test code = AGAP) 12.0 10.0-20.0 [facility]2017-02-20 18:33:00 Test Item Value Reference Range Interpretation Comments Bili Total (test code = Bili Total) 0.2 0.2-1.3 [facility]2017-02-20 18:33:00 Test Item Value Reference Range Interpretation Comments Alk Phos (test code = Alk Phos) 116 39-136 [facility]2017-02-20 18:33:00 Test Item Value Reference Range Interpretation Comments CO2 (test code = CO2) 30 24-32 [facility]2017-02-20 18:33:00 Test Item Value Reference Range Interpretation Comments Chloride Lvl (test code = Chloride Lvl) 99 95-109 [facility]2017-02-20 18:33:00 Test Item Value Reference Range Interpretation Comments BUN (test code = BUN) 14 7-22 [facility]2017-02-20 18:33:00 Test Item Value Reference Range Interpretation Comments Glucose Lvl (test code = Glucose Lvl) 128 70-99 [facility]2017-02-20 18:33:00 Test Item Value Reference Range Interpretation Comments Creatinine Lvl (test code = Creatinine 0.74 0.50-1.40 Lvl) [facility]2017-02-20 18:33:00 Test Item Value Reference Range Interpretation Comments Potassium Lvl (test code = Potassium 5.0 3.5-5.1 Lvl) [facility]2017-02-20 18:33:00 Test Item Value Reference Range Interpretation Comments Sodium Lvl (test code = Sodium Lvl) 136 135-145 [facility]2017-02-20 18:33:00 Test Item Value Reference Range Interpretation Comments Total Protein (test code = Total 7.7 6.4-8.4 Protein) [facility]2017-02-20 18:33:00 Test Item Value Reference Range Interpretation Comments Calcium Lvl (test code = Calcium Lvl) 8.7 8.5-10.5 [facility]2017-02-20 18:33:00 Test Item Value Reference Range Interpretation Comments ALT (test code = ALT) 21 See_Comment [Auto mated message] The system which ge nerated this result transmit neli reference range : <=65. The reference range was not used to interpr et this result as felipe l/abnormal. [facility] [id number] 18:33:00 Test Item Value Reference Range Interpretation Comments Albumin Lvl (test code = Albumin Lvl) 3.0 3.5-5.0 [facility]2017-02-20 18:33:00 Test Item Value Reference Range Interpretation Comments AST (test code = AST) 27 See_Comment [Auto mated message] The system which ge nerated this result transmit neli reference range : <=37. The reference range was not used to interpr et this result as felipe l/abnormal. [facility]JhauikdPDEUAWZTXO8210-74-05 18:33:00 Test Item Value Reference Range Interpretation Comments C-REACTIVE PROTEIN (test code = 44.4 C-REACTIVE PROTEIN) [facility] [id number] 18:33:00 Test Item Value Reference Range Interpretation Comments Lactic Acid Lvl (test code = Lactic 1.3 0.5-2.2 Acid Lvl) [facility] [id number] 18:33:00 Test Item Value Reference Range Interpretation Comments eGFR (test code = eGFR) 91 [facility] [id number] 18:33:00 Test Item Value Reference Range Interpretation Comments B/C Ratio (test code = B/C Ratio) 19 6-25 [facility] [id number] 18:33:00 Test Item Value Reference Range Interpretation Comments A/G Ratio (test code = A/G Ratio) 0.6 0.7-1.6 [facility] [id number] 18:33:00 Test Item Value Reference Range Interpretation Comments Globulin (test code = Globulin) 4.7 2.7-4.2 [facility] [id number] 18:33:00 Test Item Value Reference Range Interpretation Comments AGAP (test code = AGAP) 12.0 10.0-20.0 [facility] [id number] 18:33:00 Test Item Value Reference Range Interpretation Comments Bili Total (test code = Bili Total) 0.2 0.2-1.3 [facility] [id number] 18:33:00 Test Item Value Reference Range Interpretation Comments Alk Phos (test code = Alk Phos) 116 39-136 [facility] ResourcesannCOMMUNITY [id number] 18:33:00 Test Item Value Reference Range Interpretation Comments CO2 (test code = CO2) 30 24-32 [facility]2017-02-20 18:33:00 Test Item Value Reference Range Interpretation Comments Chloride Lvl (test code = Chloride Lvl) 99 95-109 [facility]2017-02-20 18:33:00 Test Item Value Reference Range Interpretation Comments BUN (test code = BUN) 14 7-22 [facility]2017-02-20 18:33:00 Test Item Value Reference Range Interpretation Comments Glucose Lvl (test code = Glucose Lvl) 128 70-99 [facility]2017-02-20 18:33:00 Test Item Value Reference Range Interpretation Comments Creatinine Lvl (test code = Creatinine 0.74 0.50-1.40 Lvl) [facility]2017-02-20 18:33:00 Test Item Value Reference Range Interpretation Comments Potassium Lvl (test code = Potassium 5.0 3.5-5.1 Lvl) [facility]2017-02-20 18:33:00 Test Item Value Reference Range Interpretation Comments Sodium Lvl (test code = Sodium Lvl) 136 135-145 [facility]2017-02-20 18:33:00 Test Item Value Reference Range Interpretation Comments Total Protein (test code = Total 7.7 6.4-8.4 Protein) [facility]2017-02-20 18:33:00 Test Item Value Reference Range Interpretation Comments Calcium Lvl (test code = Calcium Lvl) 8.7 8.5-10.5 [facility]2017-02-20 18:33:00 Test Item Value Reference Range Interpretation Comments ALT (test code = ALT) 21 See_Comment [Auto mated message] The system which ge nerated this result transmit neli reference range : <=65. The reference range was not used to interpr et this result as felipe l/abnormal. [facility]2017-02-20 18:33:00 Test Item Value Reference Range Interpretation Comments Albumin Lvl (test code = Albumin Lvl) 3.0 3.5-5.0 [facility]2017-02-20 18:33:00 Test Item Value Reference Range Interpretation Comments AST (test code = AST) 27 See_Comment [Auto mated message] The system which ge nerated this result transmit neli reference range : <=37. The reference range was not used to interpr et this result as felipe l/abnormal. [facility] [id number] 18:33:00 Test Item Value Reference Range Interpretation Comments C-REACTIVE PROTEIN (test code = 44.4 C-REACTIVE PROTEIN) [facility]2017-02-20 18:33:00 Test Item Value Reference Range Interpretation Comments Lactic Acid Lvl (test code = Lactic 1.3 0.5-2.2 Acid Lvl) [facility]2017-02-20 18:33:00 Test Item Value Reference Range Interpretation Comments eGFR (test code = eGFR) 91 [facility]2017-02-20 18:33:00 Test Item Value Reference Range Interpretation Comments B/C Ratio (test code = B/C Ratio) 19 6-25 [facility]2017-02-20 18:33:00 Test Item Value Reference Range Interpretation Comments A/G Ratio (test code = A/G Ratio) 0.6 0.7-1.6 [facility]2017-02-20 18:33:00 Test Item Value Reference Range Interpretation Comments Globulin (test code = Globulin) 4.7 2.7-4.2 [facility]2017-02-20 18:33:00 Test Item Value Reference Range Interpretation Comments AGAP (test code = AGAP) 12.0 10.0-20.0 [facility]2017-02-20 18:33:00 Test Item Value Reference Range Interpretation Comments Bili Total (test code = Bili Total) 0.2 0.2-1.3 [facility]2017-02-20 18:33:00 Test Item Value Reference Range Interpretation Comments Alk Phos (test code = Alk Phos) 116 39-136 [facility]2017-02-20 18:33:00 Test Item Value Reference Range Interpretation Comments CO2 (test code = CO2) 30 24-32 [facility]2017-02-20 18:33:00 Test Item Value Reference Range Interpretation Comments Chloride Lvl (test code = Chloride Lvl) 99 95-109 [facility]2017-02-20 18:33:00 Test Item Value Reference Range Interpretation Comments BUN (test code = BUN) 14 7-22 [facility]2017-02-20 18:33:00 Test Item Value Reference Range Interpretation Comments Glucose Lvl (test code = Glucose Lvl) 128 70-99 [facility]2017-02-20 18:33:00 Test Item Value Reference Range Interpretation Comments Creatinine Lvl (test code = Creatinine 0.74 0.50-1.40 Lvl) [facility]2017-02-20 18:33:00 Test Item Value Reference Range Interpretation Comments Potassium Lvl (test code = Potassium 5.0 3.5-5.1 Lvl) [facility]2017-02-20 18:33:00 Test Item Value Reference Range Interpretation Comments Sodium Lvl (test code = Sodium Lvl) 136 135-145 [facility] [facility]2017-02-20 18:33:00 Test Item Value Reference Range Interpretation Comments Total Protein (test code = Total 7.7 6.4-8.4 Protein) [facility]2017-02-20 18:33:00 Test Item Value Reference Range Interpretation Comments Calcium Lvl (test code = Calcium Lvl) 8.7 8.5-10.5 [facility]2017-02-20 18:33:00 Test Item Value Reference Range Interpretation Comments ALT (test code = ALT) 21 See_Comment [Auto mated message] The system which ge nerated this result transmit neli reference range : <=65. The reference range was not used to interpr et this result as felipe l/abnormal. [facility]2017-02-20 18:33:00 Test Item Value Reference Range Interpretation Comments Albumin Lvl (test code = Albumin Lvl) 3.0 3.5-5.0 [facility]2017-02-20 18:33:00 Test Item Value Reference Range Interpretation Comments AST (test code = AST) 27 See_Comment [Auto mated message] The system which ge nerated this result transmit neli reference range : <=37. The reference range was not used to interpr et this result as felipe l/abnormal. [id number] 18:33:00 Test Item Value Reference Range Interpretation Comments C-REACTIVE PROTEIN (test code = 44.4 C-REACTIVE PROTEIN) [facility]2017-02-20 18:33:00 Test Item Value Reference Range Interpretation Comments Lactic Acid Lvl (test code = Lactic 1.3 0.5-2.2 Acid Lvl) [facility]2017-02-20 18:33:00 Test Item Value Reference Range Interpretation Comments eGFR (test code = eGFR) 91 [facility]2017-02-20 18:33:00 Test Item Value Reference Range Interpretation Comments B/C Ratio (test code = B/C Ratio) 19 6-25 [facility]2017-02-20 18:33:00 Test Item Value Reference Range Interpretation Comments A/G Ratio (test code = A/G Ratio) 0.6 0.7-1.6 [facility]2017-02-20 18:33:00 Test Item Value Reference Range Interpretation Comments Globulin (test code = Globulin) 4.7 2.7-4.2 [facility]2017-02-20 18:33:00 Test Item Value Reference Range Interpretation Comments AGAP (test code = AGAP) 12.0 10.0-20.0 [facility]2017-02-20 18:33:00 Test Item Value Reference Range Interpretation Comments Bili Total (test code = Bili Total) 0.2 0.2-1.3 [facility]2017-02-20 18:33:00 Test Item Value Reference Range Interpretation Comments Alk Phos (test code = Alk Phos) 116 39-136 [facility]2017-02-20 18:33:00 Test Item Value Reference Range Interpretation Comments CO2 (test code = CO2) 30 24-32 [facility]2017-02-20 18:33:00 Test Item Value Reference Range Interpretation Comments Chloride Lvl (test code = Chloride Lvl) 99 95-109 [facility]2017-02-20 18:33:00 Test Item Value Reference Range Interpretation Comments BUN (test code = BUN) 14 7-22 [facility]2017-02-20 18:33:00 Test Item Value Reference Range Interpretation Comments Glucose Lvl (test code = Glucose Lvl) 128 70-99 [facility]2017-02-20 18:33:00 Test Item Value Reference Range Interpretation Comments Creatinine Lvl (test code = Creatinine 0.74 0.50-1.40 Lvl) [facility]2017-02-20 18:33:00 Test Item Value Reference Range Interpretation Comments Potassium Lvl (test code = Potassium 5.0 3.5-5.1 Lvl) [facility]2017-02-20 18:33:00 Test Item Value Reference Range Interpretation Comments Sodium Lvl (test code = Sodium Lvl) 136 135-145 [facility]2017-02-20 18:33:00 Test Item Value Reference Range Interpretation Comments Total Protein (test code = Total 7.7 6.4-8.4 Protein) [facility]2017-02-20 18:33:00 Test Item Value Reference Range Interpretation Comments Calcium Lvl (test code = Calcium Lvl) 8.7 8.5-10.5 [facility]2017-02-20 18:33:00 Test Item Value Reference Range Interpretation Comments ALT (test code = ALT) 21 See_Comment [Auto mated message] The system which ge nerated this result transmit neli reference range : <=65. The reference range was not used to interpr et this result as felipe l/abnormal. [facility]2017-02-20 18:33:00 Test Item Value Reference Range Interpretation Comments Albumin Lvl (test code = Albumin Lvl) 3.0 3.5-5.0 [facility]2017-02-20 18:33:00 Test Item Value Reference Range Interpretation Comments AST (test code = AST) 27 See_Comment [Auto mated message] The system which ge nerated this result transmit neli reference range : <=37. The reference range was not used to interpr et this result as felipe l/abnormal. [id number] 18:33:00 Test Item Value Reference Range Interpretation Comments C-REACTIVE PROTEIN (test code = 44.4 C-REACTIVE PROTEIN) [facility]2017-02-20 18:33:00 Test Item Value Reference Range Interpretation Comments Lactic Acid Lvl (test code = Lactic 1.3 0.5-2.2 Acid Lvl) [facility]2017-02-20 18:33:00 Test Item Value Reference Range Interpretation Comments eGFR (test code = eGFR) 91 [facility]2017-02-20 18:33:00 Test Item Value Reference Range Interpretation Comments B/C Ratio (test code = B/C Ratio) 19 6-25 [facility]2017-02-20 18:33:00 Test Item Value Reference Range Interpretation Comments A/G Ratio (test code = A/G Ratio) 0.6 0.7-1.6 [facility]2017-02-20 18:33:00 Test Item Value Reference Range Interpretation Comments Globulin (test code = Globulin) 4.7 2.7-4.2 [facility]2017-02-20 18:33:00 Test Item Value Reference Range Interpretation Comments AGAP (test code = AGAP) 12.0 10.0-20.0 [facility]2017-02-20 18:33:00 Test Item Value Reference Range Interpretation Comments Bili Total (test code = Bili Total) 0.2 0.2-1.3 [facility]2017-02-20 18:33:00 Test Item Value Reference Range Interpretation Comments Alk Phos (test code = Alk Phos) 116 39-136 [facility]2017-02-20 18:33:00 Test Item Value Reference Range Interpretation Comments CO2 (test code = CO2) 30 24-32 [facility]2017-02-20 18:33:00 Test Item Value Reference Range Interpretation Comments Chloride Lvl (test code = Chloride Lvl) 99 95-109 [facility]2017-02-20 18:33:00 Test Item Value Reference Range Interpretation Comments BUN (test code = BUN) 14 7-22 [facility]2017-02-20 18:33:00 Test Item Value Reference Range Interpretation Comments Glucose Lvl (test code = Glucose Lvl) 128 70-99 [facility]2017-02-20 18:33:00 Test Item Value Reference Range Interpretation Comments Creatinine Lvl (test code = Creatinine 0.74 0.50-1.40 Lvl) [facility]2017-02-20 18:33:00 Test Item Value Reference Range Interpretation Comments Potassium Lvl (test code = Potassium 5.0 3.5-5.1 Lvl) [facility]2017-02-20 18:33:00 Test Item Value Reference Range Interpretation Comments Sodium Lvl (test code = Sodium Lvl) 136 135-145 [facility]2017-02-20 18:33:00 Test Item Value Reference Range Interpretation Comments Total Protein (test code = Total 7.7 6.4-8.4 Protein) [facility]2017-02-20 18:33:00 Test Item Value Reference Range Interpretation Comments Calcium Lvl (test code = Calcium Lvl) 8.7 8.5-10.5 [facility]2017-02-20 18:33:00 Test Item Value Reference Range Interpretation Comments ALT (test code = ALT) 21 See_Comment [Auto mated message] The system which ge nerated this result transmit neli reference range : <=65. The reference range was not used to interpr et this result as felipe l/abnormal. [facility]2017-02-20 18:33:00 Test Item Value Reference Range Interpretation Comments Albumin Lvl (test code = Albumin Lvl) 3.0 3.5-5.0 [facility]2017-02-20 18:33:00 Test Item Value Reference Range Interpretation Comments AST (test code = AST) 27 See_Comment [Auto mated message] The system which ge nerated this result transmit neli reference range : <=37. The reference range was not used to interpr et this result as felipe l/abnormal. [facility] [id number] 18:33:00 Test Item Value Reference Range Interpretation Comments C-REACTIVE PROTEIN (test code = 44.4 C-REACTIVE PROTEIN) [facility]2017-02-20 18:33:00 Test Item Value Reference Range Interpretation Comments Lactic Acid Lvl (test code = Lactic 1.3 0.5-2.2 Acid Lvl) [facility]2017-02-20 18:33:00 Test Item Value Reference Range Interpretation Comments eGFR (test code = eGFR) 91 [facility]2017-02-20 18:33:00 Test Item Value Reference Range Interpretation Comments B/C Ratio (test code = B/C Ratio) 19 6-25 [facility]2017-02-20 18:33:00 Test Item Value Reference Range Interpretation Comments A/G Ratio (test code = A/G Ratio) 0.6 0.7-1.6 [facility]2017-02-20 18:33:00 Test Item Value Reference Range Interpretation Comments Globulin (test code = Globulin) 4.7 2.7-4.2 [facility]2017-02-20 18:33:00 Test Item Value Reference Range Interpretation Comments AGAP (test code = AGAP) 12.0 10.0-20.0 [facility]2017-02-20 18:33:00 Test Item Value Reference Range Interpretation Comments Bili Total (test code = Bili Total) 0.2 0.2-1.3 [facility]2017-02-20 18:33:00 Test Item Value Reference Range Interpretation Comments Alk Phos (test code = Alk Phos) 116 39-136 [facility]2017-02-20 18:33:00 Test Item Value Reference Range Interpretation Comments CO2 (test code = CO2) 30 24-32 [facility]2017-02-20 18:33:00 Test Item Value Reference Range Interpretation Comments Chloride Lvl (test code = Chloride Lvl) 99 95-109 [facility]2017-02-20 18:33:00 Test Item Value Reference Range Interpretation Comments BUN (test code = BUN) 14 7-22 [facility]2017-02-20 18:33:00 Test Item Value Reference Range Interpretation Comments Glucose Lvl (test code = Glucose Lvl) 128 70-99 [facility]2017-02-20 18:33:00 Test Item Value Reference Range Interpretation Comments Creatinine Lvl (test code = Creatinine 0.74 0.50-1.40 Lvl) [facility]2017-02-20 18:33:00 Test Item Value Reference Range Interpretation Comments Potassium Lvl (test code = Potassium 5.0 3.5-5.1 Lvl) [facility]2017-02-20 18:33:00 Test Item Value Reference Range Interpretation Comments Sodium Lvl (test code = Sodium Lvl) 136 135-145 [facility]2017-02-20 18:33:00 Test Item Value Reference Range Interpretation Comments Total Protein (test code = Total 7.7 6.4-8.4 Protein) [facility]2017-02-20 18:33:00 Test Item Value Reference Range Interpretation Comments Calcium Lvl (test code = Calcium Lvl) 8.7 8.5-10.5 [facility]2017-02-20 18:33:00 Test Item Value Reference Range Interpretation Comments ALT (test code = ALT) 21 See_Comment [Auto mated message] The system which ge nerated this result transmit neli reference range : <=65. The reference range was not used to interpr et this result as felipe l/abnormal. [facility]2017-02-20 18:33:00 Test Item Value Reference Range Interpretation Comments Albumin Lvl (test code = Albumin Lvl) 3.0 3.5-5.0 [facility]2017-02-20 18:33:00 Test Item Value Reference Range Interpretation Comments AST (test code = AST) 27 See_Comment [Auto mated message] The system which ge nerated this result transmit neli reference range : <=37. The reference range was not used to interpr et this result as felipe l/abnormal. [facility] [id number] 18:33:00 Test Item Value Reference Range Interpretation Comments C-REACTIVE PROTEIN (test code = 44.4 C-REACTIVE PROTEIN) [facility]2017-02-20 18:33:00 Test Item Value Reference Range Interpretation Comments Lactic Acid Lvl (test code = Lactic 1.3 0.5-2.2 Acid Lvl) [facility]2017-02-20 18:33:00 Test Item Value Reference Range Interpretation Comments eGFR (test code = eGFR) 91 [facility]2017-02-20 18:33:00 Test Item Value Reference Range Interpretation Comments B/C Ratio (test code = B/C Ratio) 19 6-25 [facility]2017-02-20 18:33:00 Test Item Value Reference Range Interpretation Comments A/G Ratio (test code = A/G Ratio) 0.6 0.7-1.6 [facility]2017-02-20 18:33:00 Test Item Value Reference Range Interpretation Comments Globulin (test code = Globulin) 4.7 2.7-4.2 [facility]2017-02-20 18:33:00 Test Item Value Reference Range Interpretation Comments AGAP (test code = AGAP) 12.0 10.0-20.0 [facility]2017-02-20 18:33:00 Test Item Value Reference Range Interpretation Comments Bili Total (test code = Bili Total) 0.2 0.2-1.3 [facility]2017-02-20 18:33:00 Test Item Value Reference Range Interpretation Comments Alk Phos (test code = Alk Phos) 116 39-136 [facility]2017-02-20 18:33:00 Test Item Value Reference Range Interpretation Comments CO2 (test code = CO2) 30 24-32 [facility]2017-02-20 18:33:00 Test Item Value Reference Range Interpretation Comments Chloride Lvl (test code = Chloride Lvl) 99 95-109 [facility]2017-02-20 18:33:00 Test Item Value Reference Range Interpretation Comments BUN (test code = BUN) 14 7-22 [facility]2017-02-20 18:33:00 Test Item Value Reference Range Interpretation Comments Glucose Lvl (test code = Glucose Lvl) 128 70-99 [facility]2017-02-20 18:33:00 Test Item Value Reference Range Interpretation Comments Creatinine Lvl (test code = Creatinine 0.74 0.50-1.40 Lvl) [facility]2017-02-20 18:33:00 Test Item Value Reference Range Interpretation Comments Potassium Lvl (test code = Potassium 5.0 3.5-5.1 Lvl) [facility]2017-02-20 18:33:00 Test Item Value Reference Range Interpretation Comments Sodium Lvl (test code = Sodium Lvl) 136 135-145 [facility]2017-02-20 18:33:00 Test Item Value Reference Range Interpretation Comments Total Protein (test code = Total 7.7 6.4-8.4 Protein) [facility]2017-02-20 18:33:00 Test Item Value Reference Range Interpretation Comments Calcium Lvl (test code = Calcium Lvl) 8.7 8.5-10.5 [facility]2017-02-20 18:33:00 Test Item Value Reference Range Interpretation Comments ALT (test code = ALT) 21 See_Comment [Auto mated message] The system which ge nerated this result transmit neli reference range : <=65. The reference range was not used to interpr et this result as felipe l/abnormal. [facility]2017-02-20 18:33:00 Test Item Value Reference Range Interpretation Comments Albumin Lvl (test code = Albumin Lvl) 3.0 3.5-5.0 [facility]2017-02-20 18:33:00 Test Item Value Reference Range Interpretation Comments AST (test code = AST) 27 See_Comment [Auto mated message] The system which ge nerated this result transmit neli reference range : <=37. The reference range was not used to interpr et this result as felipe l/abnormal. [facility] [id number] 18:33:00 Test Item Value Reference Range Interpretation Comments C-REACTIVE PROTEIN (test code = 44.4 C-REACTIVE PROTEIN) [facility]2017-02-20 18:33:00 Test Item Value Reference Range Interpretation Comments Lactic Acid Lvl (test code = Lactic 1.3 0.5-2.2 Acid Lvl) [facility]2017-02-20 18:33:00 Test Item Value Reference Range Interpretation Comments eGFR (test code = eGFR) 91 [facility]2017-02-20 18:33:00 Test Item Value Reference Range Interpretation Comments B/C Ratio (test code = B/C Ratio) 19 6-25 [facility]2017-02-20 18:33:00 Test Item Value Reference Range Interpretation Comments A/G Ratio (test code = A/G Ratio) 0.6 0.7-1.6 [facility]2017-02-20 18:33:00 Test Item Value Reference Range Interpretation Comments Globulin (test code = Globulin) 4.7 2.7-4.2 [facility]2017-02-20 18:33:00 Test Item Value Reference Range Interpretation Comments AGAP (test code = AGAP) 12.0 10.0-20.0 [facility]2017-02-20 18:33:00 Test Item Value Reference Range Interpretation Comments Bili Total (test code = Bili Total) 0.2 0.2-1.3 [facility]2017-02-20 18:33:00 Test Item Value Reference Range Interpretation Comments Alk Phos (test code = Alk Phos) 116 39-136 [facility]2017-02-20 18:33:00 Test Item Value Reference Range Interpretation Comments CO2 (test code = CO2) 30 24-32 [facility]2017-02-20 18:33:00 Test Item Value Reference Range Interpretation Comments Chloride Lvl (test code = Chloride Lvl) 99 95-109 [facility]2017-02-20 18:33:00 Test Item Value Reference Range Interpretation Comments BUN (test code = BUN) 14 7-22 [facility]2017-02-20 18:33:00 Test Item Value Reference Range Interpretation Comments Glucose Lvl (test code = Glucose Lvl) 128 70-99 [facility]2017-02-20 18:33:00 Test Item Value Reference Range Interpretation Comments Creatinine Lvl (test code = Creatinine 0.74 0.50-1.40 Lvl) [facility]2017-02-20 18:33:00 Test Item Value Reference Range Interpretation Comments Potassium Lvl (test code = Potassium 5.0 3.5-5.1 Lvl) [facility]2017-02-20 18:33:00 Test Item Value Reference Range Interpretation Comments Sodium Lvl (test code = Sodium Lvl) 136 135-145 [facility]2017-02-20 18:33:00 Test Item Value Reference Range Interpretation Comments Total Protein (test code = Total 7.7 6.4-8.4 Protein) [facility]2017-02-20 18:33:00 Test Item Value Reference Range Interpretation Comments Calcium Lvl (test code = Calcium Lvl) 8.7 8.5-10.5 [facility]2017-02-20 18:33:00 Test Item Value Reference Range Interpretation Comments ALT (test code = ALT) 21 See_Comment [Auto mated message] The system which ge nerated this result transmit neli reference range : <=65. The reference range was not used to interpr et this result as felipe l/abnormal. [facility]2017-02-20 18:33:00 Test Item Value Reference Range Interpretation Comments Albumin Lvl (test code = Albumin Lvl) 3.0 3.5-5.0 [facility]2017-02-20 18:33:00 Test Item Value Reference Range Interpretation Comments AST (test code = AST) 27 See_Comment [Auto mated message] The system which ge nerated this result transmit neli reference range : <=37. The reference range was not used to interpr et this result as felipe l/abnormal. [facility] [id number] 18:33:00 Test Item Value Reference Range Interpretation Comments C-REACTIVE PROTEIN (test code = 44.4 C-REACTIVE PROTEIN) [facility]2017-02-20 18:33:00 Test Item Value Reference Range Interpretation Comments Lactic Acid Lvl (test code = Lactic 1.3 0.5-2.2 Acid Lvl) [facility]2017-02-20 18:33:00 Test Item Value Reference Range Interpretation Comments eGFR (test code = eGFR) 91 [facility]2017-02-20 18:33:00 Test Item Value Reference Range Interpretation Comments B/C Ratio (test code = B/C Ratio) 19 6-25 [facility]2017-02-20 18:33:00 Test Item Value Reference Range Interpretation Comments A/G Ratio (test code = A/G Ratio) 0.6 0.7-1.6 [facility]2017-02-20 18:33:00 Test Item Value Reference Range Interpretation Comments Globulin (test code = Globulin) 4.7 2.7-4.2 [facility]2017-02-20 18:33:00 Test Item Value Reference Range Interpretation Comments AGAP (test code = AGAP) 12.0 10.0-20.0 [facility]2017-02-20 18:33:00 Test Item Value Reference Range Interpretation Comments Bili Total (test code = Bili Total) 0.2 0.2-1.3 [facility]2017-02-20 18:33:00 Test Item Value Reference Range Interpretation Comments Alk Phos (test code = Alk Phos) 116 39-136 [facility]2017-02-20 18:33:00 Test Item Value Reference Range Interpretation Comments CO2 (test code = CO2) 30 24-32 [facility]2017-02-20 18:33:00 Test Item Value Reference Range Interpretation Comments Chloride Lvl (test code = Chloride Lvl) 99 95-109 [facility]2017-02-20 18:33:00 Test Item Value Reference Range Interpretation Comments BUN (test code = BUN) 14 7-22 [facility]2017-02-20 18:33:00 Test Item Value Reference Range Interpretation Comments Glucose Lvl (test code = Glucose Lvl) 128 70-99 [id number] 14:38:00 Test Item Value Reference Range Interpretation Comments Segs-Bands # (test code = Segs-Bands #) 4.5 1.5-8.1 [id number] 14:38:00 Test Item Value Reference Range Interpretation Comments Basophils (test code = 0.5 See_Comment [Aut omated message] The Basophils) system which ge nerated this result tra nsmitted reference range : <=1.0. The reference r lv was not used to int erpret this result as normal/abnormal . [facility]WwpjoblTMERLOCNZB2356-02-35 14:38:00 Test Item Value Reference Range Interpretation Comments Monocytes (test code = Monocytes) 5.8 2.0-12.0 [id number] 14:38:00 Test Item Value Reference Range Interpretation Comments Eosinophils (test code = 1.4 See_Comment [A utomated message] The Eosinophils) system which ge nerated this result tra nsmitted reference range : <=4.0. The reference r lv was not used to int erpret this result as normal/abnormal . [facility] [id number] 14:38:00 Test Item Value Reference Range Interpretation Comments Eosinophils # (test code 0.1 See_Comment [A utomated message] The = Eosinophils #) system whic h generated this result tra nsmitted reference range : <=0.5. The reference r lv was not used to int erpret this result as normal/abnormal . [id number] 14:38:00 Test Item Value Reference Range Interpretation Comments HIV 1/2 Ab (test code Negative *NA*(08/03/15 = HIV 1/2 Ab) 9:38 AM) [id number] 14:38:00 Test Item Value Reference Range Interpretation Comments Hep C Ab (test code = Negative *NA*(08/03/15 Hep C Ab) 9:38 AM) [facility]2016-06-23 14:38:00 Test Item Value Reference Range Interpretation Comments eGFR (test code = eGFR) 79 [facility]2016-06-23 14:38:00 Test Item Value Reference Range Interpretation Comments Sodium Lvl (test code = Sodium Lvl) 144 135-145 [facility]2016-06-23 14:38:00 Test Item Value Reference Range Interpretation Comments Chloride Lvl (test code = Chloride Lvl) 104 95-109 [facility]2016-06-23 14:38:00 Test Item Value Reference Range Interpretation Comments Potassium Lvl (test code = Potassium 4.6 3.5-5.1 Lvl) [facility]2016-06-23 14:38:00 Test Item Value Reference Range Interpretation Comments Calcium Lvl (test code = Calcium Lvl) 9.4 8.5-10.5 [facility]2016-06-23 14:38:00 Test Item Value Reference Range Interpretation Comments CO2 (test code = CO2) 31 24-32 [facility]2016-06-23 14:38:00 Test Item Value Reference Range Interpretation Comments Glucose Lvl (test code = Glucose Lvl) 126 70-99 [facility]2016-06-23 14:38:00 Test Item Value Reference Range Interpretation Comments Creatinine Lvl (test code = Creatinine 0.84 0.50-1.40 Lvl) [facility]2016-06-23 14:38:00 Test Item Value Reference Range Interpretation Comments BUN (test code = BUN) 17 7-22 [facility]2016-06-23 14:38:00 Test Item Value Reference Range Interpretation Comments AGAP (test code = AGAP) 13.6 10.0-20.0 [facility]PwlcjcgQFEYHFSWEZ8592-56-52 14:38:00 Test Item Value Reference Range Interpretation Comments MCH (test code = MCH) 28.8 pg 27.0-31.0 [facility] CenterSczhvskCVVEFMRZQA6487-97-94 14:38:00 Test Item Value Reference Range Interpretation Comments Hgb (test code = Hgb) 12.1 12.0-16.0 [facility] CenterCcyiyymTJXAZIINXX2065-18-29 14:38:00 Test Item Value Reference Range Interpretation Comments RBC (test code = RBC) 4.20 4.20-5.40 [place] 649916-06-23 14:38:00 Test Item Value Reference Range Interpretation Comments MCV (test code = MCV) 89.2 80.0-98.0 [facility] CenterBdvwsqdCEXROTMOND1506-69-43 14:38:00 Test Item Value Reference Range Interpretation Comments Hct (test code = Hct) 37.5 36.0-48.0 [facility] CenterGwpgxczOBRQXORCJH1503-11-29 14:38:00 Test Item Value Reference Range Interpretation Comments WBC (test code = WBC) 7.4 3.7-10.4 [facility] CenterBmmkkyjWMUHMHTZUS3319-08-52 14:38:00 Test Item Value Reference Range Interpretation Comments MCHC (test code = MCHC) 32.3 32.0-36.0 [facility] CenterYafvbyiJIDTZEQWWH1396-78-58 14:38:00 Test Item Value Reference Range Interpretation Comments RDW (test code = RDW) 14.3 11.5-14.5 [facility] CenterHfysluyYRTADAGUOX4091-17-22 14:38:00 Test Item Value Reference Range Interpretation Comments MPV (test code = MPV) 9.3 7.4-10.4 [facility] CenterLiyeszcJPZBQJHVOX5599-85-31 14:38:00 Test Item Value Reference Range Interpretation Comments Platelet (test code = Platelet) 193 133-450 [facility] CenterDluejsuFMSQFSROKG3763-79-13 14:38:00 Test Item Value Reference Range Interpretation Comments Basophils # (test code 0.0 See_Comment [Aut omated message] The = Basophils #) system which generated this result tra nsmitted reference range : <=0.2. The reference r lv was not used to int erpret this result as normal/abnormal . [facility] CenterWoiczooWDHZHZUFRW6235-16-31 14:38:00 Test Item Value Reference Range Interpretation Comments Segs (test code = Segs) 61.4 45.0-75.0 [facility] CenterVnnrpgaAVYOJJXGWA2268-01-45 14:38:00 Test Item Value Reference Range Interpretation Comments Lymphocytes (test code = Lymphocytes) 30.9 20.0-40.0 [facility] CenterKpqdifzWDYUSEABYD5347-35-23 14:38:00 Test Item Value Reference Range Interpretation Comments Lymphocytes # (test code = Lymphocytes 2.3 1.0-5.5 #) [facility] CenterLajtbziNYUGSTMTCH0042-26-32 14:38:00 Test Item Value Reference Range Interpretation Comments Monocytes # (test code 0.4 See_Comment [Aut omated message] The = Monocytes #) system which generated this result tra nsmitted reference range : <=0.8. The reference r lv was not used to int erpret this result as normal/abnormal . [facility] CenterXsfmalzUWVGJHWZAA6366-51-22 14:38:00 Test Item Value Reference Range Interpretation Comments Segs-Bands # (test code = Segs-Bands #) 4.5 1.5-8.1 [facility] CenterFjnmoqeHTILYXWIEF2958-99-38 14:38:00 Test Item Value Reference Range Interpretation Comments Basophils (test code = 0.5 See_Comment [Aut omated message] The Basophils) system which ge nerated this result tra nsmitted reference range : <=1.0. The reference r lv was not used to int erpret this result as normal/abnormal . [facility] CenterTrzhrpeXWCYISBDVA3073-57-59 14:38:00 Test Item Value Reference Range Interpretation Comments Monocytes (test code = Monocytes) 5.8 2.0-12.0 [facility] CenterSrawwxwMXQGMZPOLD3833-60-36 14:38:00 Test Item Value Reference Range Interpretation Comments Eosinophils (test code = 1.4 See_Comment [A utomated message] The Eosinophils) system which ge nerated this result tra nsmitted reference range : <=4.0. The reference r lv was not used to int erpret this result as normal/abnormal . [facility] CenterXdxbpcnODAIDQNEAA2850-16-48 14:38:00 Test Item Value Reference Range Interpretation Comments Eosinophils # (test code 0.1 See_Comment [A utomated message] The = Eosinophils #) system whic h generated this result tra nsmitted reference range : <=0.5. The reference r lv was not used to int erpret this result as normal/abnormal . [facility]pxzbSIEJCAQOLN2108-44-61 14:38:00 Test Item Value Reference Range Interpretation Comments HIV 1/2 Ab (test code Negative *NA*(08/03/15 = HIV 1/2 Ab) 9:38 AM) [facility]SrjxkquRGCZZWSRKL7900-09-23 14:38:00 Test Item Value Reference Range Interpretation Comments Hep C Ab (test code = Negative *NA*(08/03/15 Hep C Ab) 9:38 AM) [facility]2016-06-23 14:38:00 Test Item Value Reference Range Interpretation Comments eGFR (test code = eGFR) 79 [facility]2016-06-23 14:38:00 Test Item Value Reference Range Interpretation Comments Sodium Lvl (test code = Sodium Lvl) 144 135-145 [facility]2016-06-23 14:38:00 Test Item Value Reference Range Interpretation Comments Chloride Lvl (test code = Chloride Lvl) 104 95-109 [facility]2016-06-23 14:38:00 Test Item Value Reference Range Interpretation Comments Potassium Lvl (test code = Potassium 4.6 3.5-5.1 Lvl) [facility]2016-06-23 14:38:00 Test Item Value Reference Range Interpretation Comments Calcium Lvl (test code = Calcium Lvl) 9.4 8.5-10.5 [facility]2016-06-23 14:38:00 Test Item Value Reference Range Interpretation Comments CO2 (test code = CO2) 31 24-32 [facility]2016-06-23 14:38:00 Test Item Value Reference Range Interpretation Comments Glucose Lvl (test code = Glucose Lvl) 126 70-99 [facility]2016-06-23 14:38:00 Test Item Value Reference Range Interpretation Comments Creatinine Lvl (test code = Creatinine 0.84 0.50-1.40 Lvl) [facility]2016-06-23 14:38:00 Test Item Value Reference Range Interpretation Comments BUN (test code = BUN) 17 7-22 [facility]2016-06-23 14:38:00 Test Item Value Reference Range Interpretation Comments AGAP (test code = AGAP) 13.6 10.0-20.0 [facility] CenterEaekkrrJOIGTJRGUE8555-17-52 14:38:00 Test Item Value Reference Range Interpretation Comments MCH (test code = MCH) 28.8 pg 27.0-31.0 [facility] CenterMccwsrlVGKDWDNYGL6215-21-61 14:38:00 Test Item Value Reference Range Interpretation Comments Hgb (test code = Hgb) 12.1 12.0-16.0 [facility] CenterYuynznrEBQVGMSOAV8328-16-71 14:38:00 Test Item Value Reference Range Interpretation Comments RBC (test code = RBC) 4.20 4.20-5.40 [facility] CenterLukwgiqYUDMGLSQTQ2896-94-61 14:38:00 Test Item Value Reference Range Interpretation Comments MCV (test code = MCV) 89.2 80.0-98.0 [facility] CenterQdeexdiEGQLPGWSMP2091-66-39 14:38:00 Test Item Value Reference Range Interpretation Comments Hct (test code = Hct) 37.5 36.0-48.0 [facility] CenterFwnqwqfWDEPOERLBK9590-99-90 14:38:00 Test Item Value Reference Range Interpretation Comments WBC (test code = WBC) 7.4 3.7-10.4 [facility] CenterRfrlcsxAAPBMDJYOH3327-30-01 14:38:00 Test Item Value Reference Range Interpretation Comments MCHC (test code = MCHC) 32.3 32.0-36.0 [facility] CenterHwllctzRYCNXDUGFD9413-49-13 14:38:00 Test Item Value Reference Range Interpretation Comments RDW (test code = RDW) 14.3 11.5-14.5 [facility] CenterSnamzpmVSAESWFGQD2560-35-55 14:38:00 Test Item Value Reference Range Interpretation Comments MPV (test code = MPV) 9.3 7.4-10.4 [facility] CenterOswuinaDJQLCJICYH8079-53-73 14:38:00 Test Item Value Reference Range Interpretation Comments Platelet (test code = Platelet) 193 133-450 [facility] CenterKiwzsivEKFHQMWRCN6097-11-80 14:38:00 Test Item Value Reference Range Interpretation Comments Basophils # (test code 0.0 See_Comment [Aut omated message] The = Basophils #) system which generated this result tra nsmitted reference range : <=0.2. The reference r lv was not used to int erpret this result as normal/abnormal . [facility] CenterJxgzblbVGJMWFZNCL7686-17-00 14:38:00 Test Item Value Reference Range Interpretation Comments Segs (test code = Segs) 61.4 45.0-75.0 [facility] CenterTzljmufNAYUMRTKMY8469-11-73 14:38:00 Test Item Value Reference Range Interpretation Comments Lymphocytes (test code = Lymphocytes) 30.9 20.0-40.0 [facility] CenterRlqkqggCBXFOUHTOY2487-88-19 14:38:00 Test Item Value Reference Range Interpretation Comments Lymphocytes # (test code = Lymphocytes 2.3 1.0-5.5 #) [facility] CenterDxoupigBFVTPRKMVZ6337-48-68 14:38:00 Test Item Value Reference Range Interpretation Comments Monocytes # (test code 0.4 See_Comment [Aut omated message] The = Monocytes #) system which generated this result tra nsmitted reference range : <=0.8. The reference r lv was not used to int erpret this result as normal/abnormal . [facility] CenterAuprxbqJFYXRHOGXD9055-39-92 14:38:00 Test Item Value Reference Range Interpretation Comments Segs-Bands # (test code = Segs-Bands #) 4.5 1.5-8.1 [facility] CenterWxzyiygTSABTEMFDL2814-40-69 14:38:00 Test Item Value Reference Range Interpretation Comments Basophils (test code = 0.5 See_Comment [Aut omated message] The Basophils) system which ge nerated this result tra nsmitted reference range : <=1.0. The reference r lv was not used to int erpret this result as normal/abnormal . [facility] CenterWcajpxoMXHSTVJWPO7308-43-53 14:38:00 Test Item Value Reference Range Interpretation Comments Monocytes (test code = Monocytes) 5.8 2.0-12.0 [facility] CenterMxtwluyEDKOMUMJRZ9727-64-73 14:38:00 Test Item Value Reference Range Interpretation Comments Eosinophils (test code = 1.4 See_Comment [A utomated message] The Eosinophils) system which ge nerated this result tra nsmitted reference range : <=4.0. The reference r lv was not used to int erpret this result as normal/abnormal . [facility] CenterTymullxGXMVYXXNIL2939-59-49 14:38:00 Test Item Value Reference Range Interpretation Comments Eosinophils # (test code 0.1 See_Comment [A utomated message] The = Eosinophils #) system whic h generated this result tra nsmitted reference range : <=0.5. The reference r lv was not used to int erpret this result as normal/abnormal . [facility]WB[facility]OQ38[facility] 14:38:00 Test Item Value Reference Range Interpretation Comments HIV 1/2 Ab (test code Negative *NA*(08/03/15 = HIV 1/2 Ab) 9:38 AM) [facility]XluzfzuBPMMVYLIRS2095-26-23 14:38:00 Test Item Value Reference Range Interpretation Comments Hep C Ab (test code = Negative *NA*(08/03/15 Hep C Ab) 9:38 AM) [facility]2016-06-23 14:38:00 Test Item Value Reference Range Interpretation Comments eGFR (test code = eGFR) 79 [facility]2016-06-23 14:38:00 Test Item Value Reference Range Interpretation Comments Sodium Lvl (test code = Sodium Lvl) 144 135-145 [facility]2016-06-23 14:38:00 Test Item Value Reference Range Interpretation Comments Chloride Lvl (test code = Chloride Lvl) 104 95-109 [facility]2016-06-23 14:38:00 Test Item Value Reference Range Interpretation Comments Potassium Lvl (test code = Potassium 4.6 3.5-5.1 Lvl) [facility]2016-06-23 14:38:00 Test Item Value Reference Range Interpretation Comments Calcium Lvl (test code = Calcium Lvl) 9.4 8.5-10.5 [facility]2016-06-23 14:38:00 Test Item Value Reference Range Interpretation Comments CO2 (test code = CO2) 31 24-32 [facility]2016-06-23 14:38:00 Test Item Value Reference Range Interpretation Comments Glucose Lvl (test code = Glucose Lvl) 126 70-99 [facility]2016-06-23 14:38:00 Test Item Value Reference Range Interpretation Comments Creatinine Lvl (test code = Creatinine 0.84 0.50-1.40 Lvl) [facility]2016-06-23 14:38:00 Test Item Value Reference Range Interpretation Comments BUN (test code = BUN) 17 7-22 [facility]2016-06-23 14:38:00 Test Item Value Reference Range Interpretation Comments AGAP (test code = AGAP) 13.6 10.0-20.0 [facility] CenterTawuovdRUVJQIFTJC0626-47-12 14:38:00 Test Item Value Reference Range Interpretation Comments MCH (test code = MCH) 28.8 pg 27.0-31.0 [facility] CenterTovhwrgDGIWTUOFRL1388-58-53 14:38:00 Test Item Value Reference Range Interpretation Comments Hgb (test code = Hgb) 12.1 12.0-16.0 [facility] CenterVmnczcwUDLKHRHNSV2669-52-91 14:38:00 Test Item Value Reference Range Interpretation Comments RBC (test code = RBC) 4.20 4.20-5.40 [facility] CenterSamsyqiHVQGXOLBTF3456-71-51 14:38:00 Test Item Value Reference Range Interpretation Comments MCV (test code = MCV) 89.2 80.0-98.0 [facility] CenterRaybonmBIDBYGILPD2466-02-66 14:38:00 Test Item Value Reference Range Interpretation Comments Hct (test code = Hct) 37.5 36.0-48.0 [facility] CenterOifobsvBTAKVLVWCV8647-62-04 14:38:00 Test Item Value Reference Range Interpretation Comments WBC (test code = WBC) 7.4 3.7-10.4 [facility] CenterHltdhyxWGXYMSWJSY1692-26-54 14:38:00 Test Item Value Reference Range Interpretation Comments MCHC (test code = MCHC) 32.3 32.0-36.0 [facility] CenterIetuifoGUFQQTXFFN2898-55-60 14:38:00 Test Item Value Reference Range Interpretation Comments RDW (test code = RDW) 14.3 11.5-14.5 [facility] CenterXahqzhsSPOSVDCCRM9187-94-02 14:38:00 Test Item Value Reference Range Interpretation Comments MPV (test code = MPV) 9.3 7.4-10.4 [facility] CenterPnicqetCAPYAWQSDQ9031-27-19 14:38:00 Test Item Value Reference Range Interpretation Comments Platelet (test code = Platelet) 193 133-450 [facility] CenterMpfwuboSMKXIRQNLY1145-49-83 14:38:00 Test Item Value Reference Range Interpretation Comments Basophils # (test code 0.0 See_Comment [Aut omated message] The = Basophils #) system which generated this result tra nsmitted reference range : <=0.2. The reference r lv was not used to int erpret this result as normal/abnormal . [facility] CenterFvdjaltZSALRAIBVK5422-18-60 14:38:00 Test Item Value Reference Range Interpretation Comments Segs (test code = Segs) 61.4 45.0-75.0 [facility] CenterVqjbwyjANBXZDMBBK3580-65-63 14:38:00 Test Item Value Reference Range Interpretation Comments Lymphocytes (test code = Lymphocytes) 30.9 20.0-40.0 [facility] CenterZdxiefqNZBRTAYFXX0463-69-28 14:38:00 Test Item Value Reference Range Interpretation Comments Lymphocytes # (test code = Lymphocytes 2.3 1.0-5.5 #) [facility] CenterGpmlrbbMQUTEJLHTJ2023-40-52 14:38:00 Test Item Value Reference Range Interpretation Comments Monocytes # (test code 0.4 See_Comment [Aut omated message] The = Monocytes #) system which generated this result tra nsmitted reference range : <=0.8. The reference r lv was not used to int erpret this result as normal/abnormal . [facility] CenterUuzcnxtNUKRBYGUVK6860-07-91 14:38:00 Test Item Value Reference Range Interpretation Comments Segs-Bands # (test code = Segs-Bands #) 4.5 1.5-8.1 [facility] CenterPfzpnoaWRJUNOKMLB2079-38-50 14:38:00 Test Item Value Reference Range Interpretation Comments Basophils (test code = 0.5 See_Comment [Aut omated message] The Basophils) system which ge nerated this result tra nsmitted reference range : <=1.0. The reference r lv was not used to int erpret this result as normal/abnormal . [facility] CenterDzugbabJPGCBPOPXW1443-16-08 14:38:00 Test Item Value Reference Range Interpretation Comments Monocytes (test code = Monocytes) 5.8 2.0-12.0 [facility] CenterGeyubyoHBJYYXZYED1204-71-17 14:38:00 Test Item Value Reference Range Interpretation Comments Eosinophils (test code = 1.4 See_Comment [A utomated message] The Eosinophils) system which ge nerated this result tra nsmitted reference range : <=4.0. The reference r lv was not used to int erpret this result as normal/abnormal . [facility] CenterRmtzflpWTMZLTFVQB8803-09-48 14:38:00 Test Item Value Reference Range Interpretation Comments Eosinophils # (test code 0.1 See_Comment [A utomated message] The = Eosinophils #) system whic h generated this result tra nsmitted reference range : <=0.5. The reference r lv was not used to int erpret this result as normal/abnormal . [facility]PebpmgtMCBTQYCPMG5492-03-56 14:38:00 Test Item Value Reference Range Interpretation Comments HIV 1/2 Ab (test code Negative *NA*(08/03/15 = HIV 1/2 Ab) 9:38 AM) [facility] HospitalRhnhmxcUMPCKUBUGH8256-91-47 14:38:00 Test Item Value Reference Range Interpretation Comments Hep C Ab (test code = Negative *NA*(08/03/15 Hep C Ab) 9:38 AM) [facility]2016-06-23 14:38:00 Test Item Value Reference Range Interpretation Comments eGFR (test code = eGFR) 79 [facility]2016-06-23 14:38:00 Test Item Value Reference Range Interpretation Comments Sodium Lvl (test code = Sodium Lvl) 144 135-145 [facility]2016-06-23 14:38:00 Test Item Value Reference Range Interpretation Comments Chloride Lvl (test code = Chloride Lvl) 104 95-109 [facility]2016-06-23 14:38:00 Test Item Value Reference Range Interpretation Comments Potassium Lvl (test code = Potassium 4.6 3.5-5.1 Lvl) [facility]2016-06-23 14:38:00 Test Item Value Reference Range Interpretation Comments Calcium Lvl (test code = Calcium Lvl) 9.4 8.5-10.5 [facility]2016-06-23 14:38:00 Test Item Value Reference Range Interpretation Comments CO2 (test code = CO2) 31 24-32 [facility]2016-06-23 14:38:00 Test Item Value Reference Range Interpretation Comments Glucose Lvl (test code = Glucose Lvl) 126 70-99 [facility]2016-06-23 14:38:00 Test Item Value Reference Range Interpretation Comments Creatinine Lvl (test code = Creatinine 0.84 0.50-1.40 Lvl) [facility]2016-06-23 14:38:00 Test Item Value Reference Range Interpretation Comments BUN (test code = BUN) 17 7-22 [facility]2016-06-23 14:38:00 Test Item Value Reference Range Interpretation Comments AGAP (test code = AGAP) 13.6 10.0-20.0 [facility] CenterVoyforxXNXEIGQIZM0365-02-25 14:38:00 Test Item Value Reference Range Interpretation Comments MCH (test code = MCH) 28.8 pg 27.0-31.0 [facility] CenterIbfdyflLMITITCVAT2476-15-08 14:38:00 Test Item Value Reference Range Interpretation Comments Hgb (test code = Hgb) 12.1 12.0-16.0 [facility] CenterXttvmeuWKXWPCVRZX4698-95-04 14:38:00 Test Item Value Reference Range Interpretation Comments RBC (test code = RBC) 4.20 4.20-5.40 [facility] CenterGqyntlgDGNWLZZIJD3095-61-97 14:38:00 Test Item Value Reference Range Interpretation Comments MCV (test code = MCV) 89.2 80.0-98.0 [facility] CenterThltcqdYVJPLERNBB5874-17-01 14:38:00 Test Item Value Reference Range Interpretation Comments Hct (test code = Hct) 37.5 36.0-48.0 [facility] CenterNfsyxcuQDTNDXXNZS7968-58-96 14:38:00 Test Item Value Reference Range Interpretation Comments WBC (test code = WBC) 7.4 3.7-10.4 [facility] CenterAkywgyoULHCJIRIBH3966-66-01 14:38:00 Test Item Value Reference Range Interpretation Comments MCHC (test code = MCHC) 32.3 32.0-36.0 [facility] CenterVaygeydWXDPCWGQAB9936-12-58 14:38:00 Test Item Value Reference Range Interpretation Comments RDW (test code = RDW) 14.3 11.5-14.5 [facility] CenterVxtrmqeOIQMQEZMIS5633-28-27 14:38:00 Test Item Value Reference Range Interpretation Comments MPV (test code = MPV) 9.3 7.4-10.4 [facility] CenterWcbplwkAMBCJFBWPT7724-15-54 14:38:00 Test Item Value Reference Range Interpretation Comments Platelet (test code = Platelet) 193 133-450 [facility] CenterThiggacOVYALISOCV4319-74-96 14:38:00 Test Item Value Reference Range Interpretation Comments Basophils # (test code 0.0 See_Comment [Aut omated message] The = Basophils #) system which generated this result tra nsmitted reference range : <=0.2. The reference r lv was not used to int erpret this result as normal/abnormal . [facility] CenterCglsjevIPIIVNWWRS2197-01-67 14:38:00 Test Item Value Reference Range Interpretation Comments Segs (test code = Segs) 61.4 45.0-75.0 [facility] CenterNzubadgNNSLSBMZNI7866-77-45 14:38:00 Test Item Value Reference Range Interpretation Comments Lymphocytes (test code = Lymphocytes) 30.9 20.0-40.0 [facility] CenterGtkioezEMMQIUPRMH3894-28-07 14:38:00 Test Item Value Reference Range Interpretation Comments Lymphocytes # (test code = Lymphocytes 2.3 1.0-5.5 #) [facility] CenterLmapzctIUMQZZSMYN8346-63-29 14:38:00 Test Item Value Reference Range Interpretation Comments Monocytes # (test code 0.4 See_Comment [Aut omated message] The = Monocytes #) system which generated this result tra nsmitted reference range : <=0.8. The reference r lv was not used to int erpret this result as normal/abnormal . [facility] CenterRelddaoQFNERIWRLQ9422-72-64 14:38:00 Test Item Value Reference Range Interpretation Comments Segs-Bands # (test code = Segs-Bands #) 4.5 1.5-8.1 [facility] CenterTcrrkmrEATFDMNVCL9008-78-76 14:38:00 Test Item Value Reference Range Interpretation Comments Basophils (test code = 0.5 See_Comment [Aut omated message] The Basophils) system which ge nerated this result tra nsmitted reference range : <=1.0. The reference r lv was not used to int erpret this result as normal/abnormal . [facility] CenterRidzrokUBWWAHEIZQ5177-44-43 14:38:00 Test Item Value Reference Range Interpretation Comments Monocytes (test code = Monocytes) 5.8 2.0-12.0 [facility] CenterXqdsytiUKDCTQYPNK2017-21-27 14:38:00 Test Item Value Reference Range Interpretation Comments Eosinophils (test code = 1.4 See_Comment [A utomated message] The Eosinophils) system which ge nerated this result tra nsmitted reference range : <=4.0. The reference r lv was not used to int erpret this result as normal/abnormal . [facility] CenterPnaslelPTKXKIEOQG8073-13-62 14:38:00 Test Item Value Reference Range Interpretation Comments Eosinophils # (test code 0.1 See_Comment [A utomated message] The = Eosinophils #) system whic h generated this result tra nsmitted reference range : <=0.5. The reference r lv was not used to int erpret this result as normal/abnormal . [facility]TbddikxQHMWKUQVSN8710-38-22 14:38:00 Test Item Value Reference Range Interpretation Comments HIV 1/2 Ab (test code Negative *NA*(08/03/15 = HIV 1/2 Ab) 9:38 AM) [facility] HospitalByuqzvuRWXNAXQCYD8228-00-82 14:38:00 Test Item Value Reference Range Interpretation Comments Hep C Ab (test code = Negative *NA*(08/03/15 Hep C Ab) 9:38 AM) [facility]2016-06-23 14:38:00 Test Item Value Reference Range Interpretation Comments eGFR (test code = eGFR) 79 [facility]2016-06-23 14:38:00 Test Item Value Reference Range Interpretation Comments Sodium Lvl (test code = Sodium Lvl) 144 135-145 [facility]2016-06-23 14:38:00 Test Item Value Reference Range Interpretation Comments Chloride Lvl (test code = Chloride Lvl) 104 95-109 [facility] [facility] 14:38:00 Test Item Value Reference Range Interpretation Comments Potassium Lvl (test code = Potassium 4.6 3.5-5.1 Lvl) [facility]2016-06-23 14:38:00 Test Item Value Reference Range Interpretation Comments Calcium Lvl (test code = Calcium Lvl) 9.4 8.5-10.5 [facility]2016-06-23 14:38:00 Test Item Value Reference Range Interpretation Comments CO2 (test code = CO2) 31 24-32 [facility]2016-06-23 14:38:00 Test Item Value Reference Range Interpretation Comments Glucose Lvl (test code = Glucose Lvl) 126 70-99 [facility]2016-06-23 14:38:00 Test Item Value Reference Range Interpretation Comments Creatinine Lvl (test code = Creatinine 0.84 0.50-1.40 Lvl) [facility]2016-06-23 14:38:00 Test Item Value Reference Range Interpretation Comments BUN (test code = BUN) 17 7-22 [facility]2016-06-23 14:38:00 Test Item Value Reference Range Interpretation Comments AGAP (test code = AGAP) 13.6 10.0-20.0 [facility]MvppevbLJELRSXAKA0343-36-25 14:38:00 Test Item Value Reference Range Interpretation Comments MCH (test code = MCH) 28.8 pg 27.0-31.0 [facility] CenterTbrinqeQLVHUESFXS5184-39-41 14:38:00 Test Item Value Reference Range Interpretation Comments Hgb (test code = Hgb) 12.1 12.0-16.0 [facility] CenterRxbnahtLBVQEWRTBI7558-85-24 14:38:00 Test Item Value Reference Range Interpretation Comments RBC (test code = RBC) 4.20 4.20-5.40 [facility] CenterKusbpwqKGTKMTRXEV6986-19-02 14:38:00 Test Item Value Reference Range Interpretation Comments MCV (test code = MCV) 89.2 80.0-98.0 [facility] CenterTfmvnrfVWWREJWJQI4829-16-35 14:38:00 Test Item Value Reference Range Interpretation Comments Hct (test code = Hct) 37.5 36.0-48.0 [facility] CenterGgkhpdqKJUTKWNZPJ1617-25-12 14:38:00 Test Item Value Reference Range Interpretation Comments WBC (test code = WBC) 7.4 3.7-10.4 [facility] CenterOinjxpjFIGCVZNGAZ2625-50-31 14:38:00 Test Item Value Reference Range Interpretation Comments MCHC (test code = MCHC) 32.3 32.0-36.0 [facility] CenterXjpadleZMZGIRMBCW2146-58-49 14:38:00 Test Item Value Reference Range Interpretation Comments RDW (test code = RDW) 14.3 11.5-14.5 [facility] CenterWpikohfZOLIQWYHNL0970-87-39 14:38:00 Test Item Value Reference Range Interpretation Comments MPV (test code = MPV) 9.3 7.4-10.4 [facility] CenterFdpkwqxUVSHOTNHHD4602-43-22 14:38:00 Test Item Value Reference Range Interpretation Comments Platelet (test code = Platelet) 193 133-450 [facility] CenterYnaobcxOHSWPSXQXZ6805-70-31 14:38:00 Test Item Value Reference Range Interpretation Comments Basophils # (test code 0.0 See_Comment [Aut omated message] The = Basophils #) system which generated this result tra nsmitted reference range : <=0.2. The reference r lv was not used to int erpret this result as normal/abnormal . [facility] CenterIjtoyafEKYASFMADU9773-77-25 14:38:00 Test Item Value Reference Range Interpretation Comments Segs (test code = Segs) 61.4 45.0-75.0 [facility] CenterVtaigkgXRNLKZZRGG0336-70-29 14:38:00 Test Item Value Reference Range Interpretation Comments Lymphocytes (test code = Lymphocytes) 30.9 20.0-40.0 [facility] CenterLsfzktdPPVGHRAVSF2964-49-38 14:38:00 Test Item Value Reference Range Interpretation Comments Lymphocytes # (test code = Lymphocytes 2.3 1.0-5.5 #) [facility] CenterReoxsvbKOTKHFRAUY2896-65-61 14:38:00 Test Item Value Reference Range Interpretation Comments Monocytes # (test code 0.4 See_Comment [Aut omated message] The = Monocytes #) system which generated this result tra nsmitted reference range : <=0.8. The reference r lv was not used to int erpret this result as normal/abnormal . [facility] CenterYmqcvtlOBKSRUIENF8745-28-84 14:38:00 Test Item Value Reference Range Interpretation Comments Segs-Bands # (test code = Segs-Bands #) 4.5 1.5-8.1 [facility] CenterQukbybmOTHLRSVNGT8603-88-01 14:38:00 Test Item Value Reference Range Interpretation Comments Basophils (test code = 0.5 See_Comment [Aut omated message] The Basophils) system which ge nerated this result tra nsmitted reference range : <=1.0. The reference r lv was not used to int erpret this result as normal/abnormal . [facility] CenterPmfvgvpETNVWKEMRF8917-74-46 14:38:00 Test Item Value Reference Range Interpretation Comments Monocytes (test code = Monocytes) 5.8 2.0-12.0 [facility] CenterPkcralwWBRVJNSIIN7727-81-40 14:38:00 Test Item Value Reference Range Interpretation Comments Eosinophils (test code = 1.4 See_Comment [A utomated message] The Eosinophils) system which ge nerated this result tra nsmitted reference range : <=4.0. The reference r lv was not used to int erpret this result as normal/abnormal . [facility] CenterVfbrwkhNSYTIDGKQC5822-71-79 14:38:00 Test Item Value Reference Range Interpretation Comments Eosinophils # (test code 0.1 See_Comment [A utomated message] The = Eosinophils #) system whic h generated this result tra nsmitted reference range : <=0.5. The reference r lv was not used to int erpret this result as normal/abnormal . [facility]AD[facility]DUT3963[facility]-76 14:38:00 Test Item Value Reference Range Interpretation Comments HIV 1/2 Ab (test code Negative *NA*(08/03/15 = HIV 1/2 Ab) 9:38 AM) [facility] CenterQsqoqthRJYCSOCLNG9501-39-82 14:38:00 Test Item Value Reference Range Interpretation Comments Hep C Ab (test code = Negative *NA*(08/03/15 Hep C Ab) 9:38 AM) [facility]2016-06-23 14:38:00 Test Item Value Reference Range Interpretation Comments eGFR (test code = eGFR) 79 [facility]2016-06-23 14:38:00 Test Item Value Reference Range Interpretation Comments Sodium Lvl (test code = Sodium Lvl) 144 135-145 [facility]2016-06-23 14:38:00 Test Item Value Reference Range Interpretation Comments Chloride Lvl (test code = Chloride Lvl) 104 95-109 [facility]2016-06-23 14:38:00 Test Item Value Reference Range Interpretation Comments Potassium Lvl (test code = Potassium 4.6 3.5-5.1 Lvl) [facility]2016-06-23 14:38:00 Test Item Value Reference Range Interpretation Comments Calcium Lvl (test code = Calcium Lvl) 9.4 8.5-10.5 [facility]2016-06-23 14:38:00 Test Item Value Reference Range Interpretation Comments CO2 (test code = CO2) 31 24-32 [facility]2016-06-23 14:38:00 Test Item Value Reference Range Interpretation Comments Glucose Lvl (test code = Glucose Lvl) 126 70-99 [facility]2016-06-23 14:38:00 Test Item Value Reference Range Interpretation Comments Creatinine Lvl (test code = Creatinine 0.84 0.50-1.40 Lvl) [facility]2016-06-23 14:38:00 Test Item Value Reference Range Interpretation Comments BUN (test code = BUN) 17 7-22 [facility]2016-06-23 14:38:00 Test Item Value Reference Range Interpretation Comments AGAP (test code = AGAP) 13.6 10.0-20.0 [facility] CenterMlftxqhRLGUAQUOVQ1009-83-40 14:38:00 Test Item Value Reference Range Interpretation Comments MCH (test code = MCH) 28.8 pg 27.0-31.0 [facility] CenterYslyjgsRCWFKAYLOU7657-85-46 14:38:00 Test Item Value Reference Range Interpretation Comments Hgb (test code = Hgb) 12.1 12.0-16.0 [facility] CenterMehcbygVDMPFUJJMR5762-78-26 14:38:00 Test Item Value Reference Range Interpretation Comments RBC (test code = RBC) 4.20 4.20-5.40 [facility] CenterUisriflICCYZRKFWU5283-94-45 14:38:00 Test Item Value Reference Range Interpretation Comments MCV (test code = MCV) 89.2 80.0-98.0 [facility] CenterMiyxvgoOQHJYGODOE4852-61-41 14:38:00 Test Item Value Reference Range Interpretation Comments Hct (test code = Hct) 37.5 36.0-48.0 [facility] CenterXmxngtgYNNRBPSPRG5414-44-90 14:38:00 Test Item Value Reference Range Interpretation Comments WBC (test code = WBC) 7.4 3.7-10.4 [facility] CenterWyyvhyuCWYTYHWHOR8860-64-48 14:38:00 Test Item Value Reference Range Interpretation Comments MCHC (test code = MCHC) 32.3 32.0-36.0 [facility] CenterJcykpcsTWYOQIJLHZ6108-29-83 14:38:00 Test Item Value Reference Range Interpretation Comments RDW (test code = RDW) 14.3 11.5-14.5 [facility] CenterFagbjwoGMUSDKHQDF8479-03-36 14:38:00 Test Item Value Reference Range Interpretation Comments MPV (test code = MPV) 9.3 7.4-10.4 [facility] CenterMqofbvuHEADFOURFW3681-90-71 14:38:00 Test Item Value Reference Range Interpretation Comments Platelet (test code = Platelet) 193 133-450 [facility] CenterNnoycvvPJIYIADTKX9658-89-90 14:38:00 Test Item Value Reference Range Interpretation Comments Basophils # (test code 0.0 See_Comment [Aut omated message] The = Basophils #) system which generated this result tra nsmitted reference range : <=0.2. The reference r lv was not used to int erpret this result as normal/abnormal . [facility] CenterOagbmgcQITYPVJDZZ4257-26-28 14:38:00 Test Item Value Reference Range Interpretation Comments Segs (test code = Segs) 61.4 45.0-75.0 [facility] CenterGerutyqNNZNYKWJYC6246-05-77 14:38:00 Test Item Value Reference Range Interpretation Comments Lymphocytes (test code = Lymphocytes) 30.9 20.0-40.0 [facility] CenterFgkdolqWUNRSDFXAU8166-43-56 14:38:00 Test Item Value Reference Range Interpretation Comments Lymphocytes # (test code = Lymphocytes 2.3 1.0-5.5 #) [facility] CenterUcnhnzwAQKXQTJITX1013-18-49 14:38:00 Test Item Value Reference Range Interpretation Comments Monocytes # (test code 0.4 See_Comment [Aut omated message] The = Monocytes #) system which generated this result tra nsmitted reference range : <=0.8. The reference r lv was not used to int erpret this result as normal/abnormal . [facility] CenterZebcxexJBVUOXMLST7327-66-64 14:38:00 Test Item Value Reference Range Interpretation Comments Segs-Bands # (test code = Segs-Bands #) 4.5 1.5-8.1 [facility] CenterTocnpxvTGKZWFVMVF4385-25-37 14:38:00 Test Item Value Reference Range Interpretation Comments Basophils (test code = 0.5 See_Comment [Aut omated message] The Basophils) system which ge nerated this result tra nsmitted reference range : <=1.0. The reference r lv was not used to int erpret this result as normal/abnormal . [facility] CenterMsxvuwgMKAPPGUKBS9709-15-74 14:38:00 Test Item Value Reference Range Interpretation Comments Monocytes (test code = Monocytes) 5.8 2.0-12.0 [facility] CenterWnxcocdKLSHLOJKBE3377-18-37 14:38:00 Test Item Value Reference Range Interpretation Comments Eosinophils (test code = 1.4 See_Comment [A utomated message] The Eosinophils) system which ge nerated this result tra nsmitted reference range : <=4.0. The reference r lv was not used to int erpret this result as normal/abnormal . [facility] CenterHxwyofqYMEFDUHITE3475-68-72 14:38:00 Test Item Value Reference Range Interpretation Comments Eosinophils # (test code 0.1 See_Comment [A utomated message] The = Eosinophils #) system whic h generated this result tra nsmitted reference range : <=0.5. The reference r lv was not used to int erpret this result as normal/abnormal . [facility]nqwlZGAIPFUWIJ9231-44-13 14:38:00 Test Item Value Reference Range Interpretation Comments HIV 1/2 Ab (test code Negative *NA*(08/03/15 = HIV 1/2 Ab) 9:38 AM) [facility] CentralNbikfgnAYMELACHSA0037-69-19 14:38:00 Test Item Value Reference Range Interpretation Comments Hep C Ab (test code = Negative *NA*(08/03/15 Hep C Ab) 9:38 AM) [facility]2016-06-23 14:38:00 Test Item Value Reference Range Interpretation Comments eGFR (test code = eGFR) 79 [facility]2016-06-23 14:38:00 Test Item Value Reference Range Interpretation Comments Sodium Lvl (test code = Sodium Lvl) 144 135-145 [facility]2016-06-23 14:38:00 Test Item Value Reference Range Interpretation Comments Chloride Lvl (test code = Chloride Lvl) 104 95-109 [facility]2016-06-23 14:38:00 Test Item Value Reference Range Interpretation Comments Potassium Lvl (test code = Potassium 4.6 3.5-5.1 Lvl) [facility]2016-06-23 14:38:00 Test Item Value Reference Range Interpretation Comments Calcium Lvl (test code = Calcium Lvl) 9.4 8.5-10.5 [facility]2016-06-23 14:38:00 Test Item Value Reference Range Interpretation Comments CO2 (test code = CO2) 31 24-32 [facility]2016-06-23 14:38:00 Test Item Value Reference Range Interpretation Comments Glucose Lvl (test code = Glucose Lvl) 126 70-99 [facility]2016-06-23 14:38:00 Test Item Value Reference Range Interpretation Comments Creatinine Lvl (test code = Creatinine 0.84 0.50-1.40 Lvl) [facility]2016-06-23 14:38:00 Test Item Value Reference Range Interpretation Comments BUN (test code = BUN) 17 7-22 [facility]2016-06-23 14:38:00 Test Item Value Reference Range Interpretation Comments AGAP (test code = AGAP) 13.6 10.0-20.0 [facility] CenterFmxgcuhDFZWXJQUTQ8349-90-34 14:38:00 Test Item Value Reference Range Interpretation Comments MCH (test code = MCH) 28.8 pg 27.0-31.0 [facility] CenterEyrgdphUCRTAREYCB8658-84-67 14:38:00 Test Item Value Reference Range Interpretation Comments Hgb (test code = Hgb) 12.1 12.0-16.0 [facility] CenterUhygisiHZSDXNHTYG7202-85-74 14:38:00 Test Item Value Reference Range Interpretation Comments RBC (test code = RBC) 4.20 4.20-5.40 [facility] CenterJvnugetSFDOBYYMEU8556-30-34 14:38:00 Test Item Value Reference Range Interpretation Comments MCV (test code = MCV) 89.2 80.0-98.0 [facility] CenterNoybdbpVFOPFDKHVZ5472-67-20 14:38:00 Test Item Value Reference Range Interpretation Comments Hct (test code = Hct) 37.5 36.0-48.0 [facility] CenterAxfvgukDMEWMGMUBO3595-41-90 14:38:00 Test Item Value Reference Range Interpretation Comments WBC (test code = WBC) 7.4 3.7-10.4 [facility] CenterZdkxudtPSPSKERSYA6082-83-28 14:38:00 Test Item Value Reference Range Interpretation Comments MCHC (test code = MCHC) 32.3 32.0-36.0 [facility] CenterWfwufgvSXMPLMQQON8973-33-73 14:38:00 Test Item Value Reference Range Interpretation Comments RDW (test code = RDW) 14.3 11.5-14.5 [facility] CenterXdmtbppPWWEWTYMNI4164-15-91 14:38:00 Test Item Value Reference Range Interpretation Comments MPV (test code = MPV) 9.3 7.4-10.4 [facility] CenterAymygabQTYGKFEYXO0716-67-18 14:38:00 Test Item Value Reference Range Interpretation Comments Platelet (test code = Platelet) 193 133-450 [facility] CenterUmniujfXFXHTDWYEG4594-33-29 14:38:00 Test Item Value Reference Range Interpretation Comments Basophils # (test code 0.0 See_Comment [Aut omated message] The = Basophils #) system which generated this result tra nsmitted reference range : <=0.2. The reference r lv was not used to int erpret this result as normal/abnormal . [facility] CenterDofjevcFHMDJODODG3374-44-51 14:38:00 Test Item Value Reference Range Interpretation Comments Segs (test code = Segs) 61.4 45.0-75.0 [facility] CenterSqiwhmcMCASUHXIXB6359-42-34 14:38:00 Test Item Value Reference Range Interpretation Comments Lymphocytes (test code = Lymphocytes) 30.9 20.0-40.0 [facility] CenterZabwqbtLNECJXPRTC7377-61-92 14:38:00 Test Item Value Reference Range Interpretation Comments Lymphocytes # (test code = Lymphocytes 2.3 1.0-5.5 #) [facility] CenterVjvjyoqAYDXWMTBGO6044-58-52 14:38:00 Test Item Value Reference Range Interpretation Comments Monocytes # (test code 0.4 See_Comment [Aut omated message] The = Monocytes #) system which generated this result tra nsmitted reference range : <=0.8. The reference r lv was not used to int erpret this result as normal/abnormal . [facility] CenterSsljugrJNTDVDFYGJ9659-28-15 14:38:00 Test Item Value Reference Range Interpretation Comments Segs-Bands # (test code = Segs-Bands #) 4.5 1.5-8.1 [facility] CenterEkgsyqoFMJAPXREVA1414-77-68 14:38:00 Test Item Value Reference Range Interpretation Comments Basophils (test code = 0.5 See_Comment [Aut omated message] The Basophils) system which ge nerated this result tra nsmitted reference range : <=1.0. The reference r lv was not used to int erpret this result as normal/abnormal . [facility] CenterSmzewnwYEORHWKHMF0822-40-98 14:38:00 Test Item Value Reference Range Interpretation Comments Monocytes (test code = Monocytes) 5.8 2.0-12.0 [facility] CenterEqyjfrpZTTEQCXZBZ8833-78-83 14:38:00 Test Item Value Reference Range Interpretation Comments Eosinophils (test code = 1.4 See_Comment [A utomated message] The Eosinophils) system which ge nerated this result tra nsmitted reference range : <=4.0. The reference r lv was not used to int erpret this result as normal/abnormal . [facility] CenterKwbquddCVDALURAAI1416-44-86 14:38:00 Test Item Value Reference Range Interpretation Comments Eosinophils # (test code 0.1 See_Comment [A utomated message] The = Eosinophils #) system whic h generated this result tra nsmitted reference range : <=0.5. The reference r lv was not used to int erpret this result as normal/abnormal . [facility] CentralCtqgiriKRWKZVHGGQ4920-74-89 14:38:00 Test Item Value Reference Range Interpretation Comments HIV 1/2 Ab (test code Negative *NA*(08/03/15 = HIV 1/2 Ab) 9:38 AM) [facility] CentralXnmyrpySDVBSEOMVG1394-97-26 14:38:00 Test Item Value Reference Range Interpretation Comments Hep C Ab (test code = Negative *NA*(08/03/15 Hep C Ab) 9:38 AM) [facility]2016-06-23 14:38:00 Test Item Value Reference Range Interpretation Comments eGFR (test code = eGFR) 79 [facility]2016-06-23 14:38:00 Test Item Value Reference Range Interpretation Comments Sodium Lvl (test code = Sodium Lvl) 144 135-145 [facility]2016-06-23 14:38:00 Test Item Value Reference Range Interpretation Comments Chloride Lvl (test code = Chloride Lvl) 104 95-109 [facility]2016-06-23 14:38:00 Test Item Value Reference Range Interpretation Comments Potassium Lvl (test code = Potassium 4.6 3.5-5.1 Lvl) [facility]2016-06-23 14:38:00 Test Item Value Reference Range Interpretation Comments Calcium Lvl (test code = Calcium Lvl) 9.4 8.5-10.5 [facility]2016-06-23 14:38:00 Test Item Value Reference Range Interpretation Comments CO2 (test code = CO2) 31 24-32 [facility]2016-06-23 14:38:00 Test Item Value Reference Range Interpretation Comments Glucose Lvl (test code = Glucose Lvl) 126 70-99 [facility]2016-06-23 14:38:00 Test Item Value Reference Range Interpretation Comments Creatinine Lvl (test code = Creatinine 0.84 0.50-1.40 Lvl) [facility]2016-06-23 14:38:00 Test Item Value Reference Range Interpretation Comments BUN (test code = BUN) 17 7-22 [facility]2016-06-23 14:38:00 Test Item Value Reference Range Interpretation Comments AGAP (test code = AGAP) 13.6 10.0-20.0 [facility] CentralGxvxzqgPVBSVTPCVA8026-66-44 14:38:00 Test Item Value Reference Range Interpretation Comments MCH (test code = MCH) 28.8 pg 27.0-31.0 [facility] CenterDbfsgueQYJKJIWNFE9210-57-50 14:38:00 Test Item Value Reference Range Interpretation Comments Hgb (test code = Hgb) 12.1 12.0-16.0 [facility] CenterMxsdjdyUUELTEPBNA3255-50-59 14:38:00 Test Item Value Reference Range Interpretation Comments RBC (test code = RBC) 4.20 4.20-5.40 [facility] CenterTrioykoZICCWYFQYL3848-91-85 14:38:00 Test Item Value Reference Range Interpretation Comments MCV (test code = MCV) 89.2 80.0-98.0 [facility] CenterPzoodqbBCEZZIGGKZ9043-13-23 14:38:00 Test Item Value Reference Range Interpretation Comments Hct (test code = Hct) 37.5 36.0-48.0 [facility] CenterMuwvqeoMKZEEOAXYU4959-54-58 14:38:00 Test Item Value Reference Range Interpretation Comments WBC (test code = WBC) 7.4 3.7-10.4 [facility] CenterVcgietkFFVRGCTBLG2701-36-89 14:38:00 Test Item Value Reference Range Interpretation Comments MCHC (test code = MCHC) 32.3 32.0-36.0 [facility] CenterZxpqydyBSWIXIRPUT7046-24-02 14:38:00 Test Item Value Reference Range Interpretation Comments RDW (test code = RDW) 14.3 11.5-14.5 [facility] CenterHyqdyzvTIODNXAGZK4232-69-51 14:38:00 Test Item Value Reference Range Interpretation Comments MPV (test code = MPV) 9.3 7.4-10.4 [facility] CenterSltlijgKGECTIVDCP4579-83-31 14:38:00 Test Item Value Reference Range Interpretation Comments Platelet (test code = Platelet) 193 133-450 [facility] CenterWefkpqbMCFQLLRJER8440-97-44 14:38:00 Test Item Value Reference Range Interpretation Comments Basophils # (test code 0.0 See_Comment [Aut omated message] The = Basophils #) system which generated this result tra nsmitted reference range : <=0.2. The reference r lv was not used to int erpret this result as normal/abnormal . [facility] CenterFxpszpgQNPBWKFJEG0183-89-22 14:38:00 Test Item Value Reference Range Interpretation Comments Segs (test code = Segs) 61.4 45.0-75.0 [facility] CenterJhiqotrKVUDFTLKTG8357-56-15 14:38:00 Test Item Value Reference Range Interpretation Comments Lymphocytes (test code = Lymphocytes) 30.9 20.0-40.0 [facility] CenterXzcmpodCGZTJDENXR1999-14-04 14:38:00 Test Item Value Reference Range Interpretation Comments Lymphocytes # (test code = Lymphocytes 2.3 1.0-5.5 #) [facility] CenterTuypkimQSKUAVVUAS1539-45-09 14:38:00 Test Item Value Reference Range Interpretation Comments Monocytes # (test code 0.4 See_Comment [Aut omated message] The = Monocytes #) system which generated this result tra nsmitted reference range : <=0.8. The reference r lv was not used to int erpret this result as normal/abnormal . [facility] CenterXmgdpgfTPUXNOYNRN7295-99-46 14:38:00 Test Item Value Reference Range Interpretation Comments Segs-Bands # (test code = Segs-Bands #) 4.5 1.5-8.1 [facility] CenterTyvpwpbIVOINKHLJU5645-13-36 14:38:00 Test Item Value Reference Range Interpretation Comments Basophils (test code = 0.5 See_Comment [Aut omated message] The Basophils) system which ge nerated this result tra nsmitted reference range : <=1.0. The reference r lv was not used to int erpret this result as normal/abnormal . [facility] CenterJelyzwoVDWMJNTUSC5380-32-22 14:38:00 Test Item Value Reference Range Interpretation Comments Monocytes (test code = Monocytes) 5.8 2.0-12.0 [facility] CenterRjdcbxyDQTOVONGFO1689-29-94 14:38:00 Test Item Value Reference Range Interpretation Comments Eosinophils (test code = 1.4 See_Comment [A utomated message] The Eosinophils) system which ge nerated this result tra nsmitted reference range : <=4.0. The reference r lv was not used to int erpret this result as normal/abnormal . [facility] CenterTtjlfnyQCFPBESXGV8565-97-08 14:38:00 Test Item Value Reference Range Interpretation Comments Eosinophils # (test code 0.1 See_Comment [A utomated message] The = Eosinophils #) system whic h generated this result tra nsmitted reference range : <=0.5. The reference r lv was not used to int erpret this result as normal/abnormal . [facility] CentralTpfywfbPQBOUVFAPD4328-69-44 14:38:00 Test Item Value Reference Range Interpretation Comments HIV 1/2 Ab (test code Negative *NA*(08/03/15 = HIV 1/2 Ab) 9:38 AM) [facility] CentralFhuwwlvGZUSFSCIKU2839-28-41 14:38:00 Test Item Value Reference Range Interpretation Comments Hep C Ab (test code = Negative *NA*(08/03/15 Hep C Ab) 9:38 AM) [facility]2016-06-23 14:38:00 Test Item Value Reference Range Interpretation Comments eGFR (test code = eGFR) 79 [facility]2016-06-23 14:38:00 Test Item Value Reference Range Interpretation Comments Sodium Lvl (test code = Sodium Lvl) 144 135-145 [facility] [facility] 14:38:00 Test Item Value Reference Range Interpretation Comments Chloride Lvl (test code = Chloride Lvl) 104 95-109 [facility]2016-06-23 14:38:00 Test Item Value Reference Range Interpretation Comments Potassium Lvl (test code = Potassium 4.6 3.5-5.1 Lvl) [facility]2016-06-23 14:38:00 Test Item Value Reference Range Interpretation Comments Calcium Lvl (test code = Calcium Lvl) 9.4 8.5-10.5 [facility]2016-06-23 14:38:00 Test Item Value Reference Range Interpretation Comments CO2 (test code = CO2) 31 24-32 [facility]2016-06-23 14:38:00 Test Item Value Reference Range Interpretation Comments Glucose Lvl (test code = Glucose Lvl) 126 70-99 [facility]2016-06-23 14:38:00 Test Item Value Reference Range Interpretation Comments Creatinine Lvl (test code = Creatinine 0.84 0.50-1.40 Lvl) [facility]2016-06-23 14:38:00 Test Item Value Reference Range Interpretation Comments BUN (test code = BUN) 17 7-22 [facility]2016-06-23 14:38:00 Test Item Value Reference Range Interpretation Comments AGAP (test code = AGAP) 13.6 10.0-20.0 [facility]898[facility]-25 14:38:00 Test Item Value Reference Range Interpretation Comments MCH (test code = MCH) 28.8 pg 27.0-31.0 [facility]gnYVAMETWUOR3760-75-21 14:38:00 Test Item Value Reference Range Interpretation Comments Hgb (test code = Hgb) 12.1 12.0-16.0 [facility]YzwxoizIPXEAFGQGH3404-86-14 14:38:00 Test Item Value Reference Range Interpretation Comments RBC (test code = RBC) 4.20 4.20-5.40 [facility]MtvujeyJNFMCSNSRF9830-94-10 14:38:00 Test Item Value Reference Range Interpretation Comments MCV (test code = MCV) 89.2 80.0-98.0 [facility] CenterCizuzdjUUEWIIRLXE0152-14-67 14:38:00 Test Item Value Reference Range Interpretation Comments Hct (test code = Hct) 37.5 36.0-48.0 [facility] CenterVqcbnvnCVNBGCOIAU5128-15-27 14:38:00 Test Item Value Reference Range Interpretation Comments WBC (test code = WBC) 7.4 3.7-10.4 [facility] CenterDedljmnVXPCMNYIGB6218-21-65 14:38:00 Test Item Value Reference Range Interpretation Comments MCHC (test code = MCHC) 32.3 32.0-36.0 [facility] CenterLsjvffqGULEWXFZVY7682-13-92 14:38:00 Test Item Value Reference Range Interpretation Comments RDW (test code = RDW) 14.3 11.5-14.5 [facility] CenterPokdliwSVJRFVXVAH6554-14-45 14:38:00 Test Item Value Reference Range Interpretation Comments MPV (test code = MPV) 9.3 7.4-10.4 [facility] CenterCymnvsvISXVSNTHOA5098-18-60 14:38:00 Test Item Value Reference Range Interpretation Comments Platelet (test code = Platelet) 193 133-450 [facility] CenterYmgswkzKTJQHUSJOT9635-25-22 14:38:00 Test Item Value Reference Range Interpretation Comments Basophils # (test code 0.0 See_Comment [Aut omated message] The = Basophils #) system which generated this result tra nsmitted reference range : <=0.2. The reference r lv was not used to int erpret this result as normal/abnormal . [facility] CenterHnluommHMUCZNPNJP6716-06-54 14:38:00 Test Item Value Reference Range Interpretation Comments Segs (test code = Segs) 61.4 45.0-75.0 [facility] CenterXptnjnsXTUVUDGTUW5903-20-01 14:38:00 Test Item Value Reference Range Interpretation Comments Lymphocytes (test code = Lymphocytes) 30.9 20.0-40.0 [facility] CenterOwidbhcNRQKQKOYSZ9906-81-55 14:38:00 Test Item Value Reference Range Interpretation Comments Lymphocytes # (test code = Lymphocytes 2.3 1.0-5.5 #) [facility] CenterKqclkdyJRDKLXGNTO2680-07-82 14:38:00 Test Item Value Reference Range Interpretation Comments Monocytes # (test code 0.4 See_Comment [Aut omated message] The = Monocytes #) system which generated this result tra nsmitted reference range : <=0.8. The reference r lv was not used to int erpret this result as normal/abnormal . [facility]2016-06-23 14:38:00 Test Item Value Reference Range Interpretation Comments eGFR (test code = eGFR) 79 [facility]2016-06-23 14:38:00 Test Item Value Reference Range Interpretation Comments Sodium Lvl (test code = Sodium Lvl) 144 135-145 [facility]2016-06-23 14:38:00 Test Item Value Reference Range Interpretation Comments Chloride Lvl (test code = Chloride Lvl) 104 95-109 [facility]2016-06-23 14:38:00 Test Item Value Reference Range Interpretation Comments Potassium Lvl (test code = Potassium 4.6 3.5-5.1 Lvl) [facility]2016-06-23 14:38:00 Test Item Value Reference Range Interpretation Comments Calcium Lvl (test code = Calcium Lvl) 9.4 8.5-10.5 [facility]2016-06-23 14:38:00 Test Item Value Reference Range Interpretation Comments CO2 (test code = CO2) 31 24-32 [facility]2016-06-23 14:38:00 Test Item Value Reference Range Interpretation Comments Glucose Lvl (test code = Glucose Lvl) 126 70-99 [facility]2016-06-23 14:38:00 Test Item Value Reference Range Interpretation Comments Creatinine Lvl (test code = Creatinine 0.84 0.50-1.40 Lvl) [facility]2016-06-23 14:38:00 Test Item Value Reference Range Interpretation Comments BUN (test code = BUN) 17 7-22 [facility]2016-06-23 14:38:00 Test Item Value Reference Range Interpretation Comments AGAP (test code = AGAP) 13.6 10.0-20.0 [facility] C[id number] 14:38:00 Test Item Value Reference Range Interpretation Comments MCH (test code = MCH) 28.8 pg 27.0-31.0 [facility] CenterVyorfwcNSLGUIXLWW6917-51-96 14:38:00 Test Item Value Reference Range Interpretation Comments Hgb (test code = Hgb) 12.1 12.0-16.0 [facility] CenterVopbctuWRXRGEUKQY4081-24-62 14:38:00 Test Item Value Reference Range Interpretation Comments RBC (test code = RBC) 4.20 4.20-5.40 [facility] CenterKgnefhfZFXWWKBFML2731-67-49 14:38:00 Test Item Value Reference Range Interpretation Comments MCV (test code = MCV) 89.2 80.0-98.0 [facility] CenterPxdhishHPJIQQQVVW7580-03-94 14:38:00 Test Item Value Reference Range Interpretation Comments Hct (test code = Hct) 37.5 36.0-48.0 [facility] CenterJrucwazMVJOPGCGCV7797-84-40 14:38:00 Test Item Value Reference Range Interpretation Comments WBC (test code = WBC) 7.4 3.7-10.4 [facility] CenterFkdxdgfRQZQTGKLWN5009-74-89 14:38:00 Test Item Value Reference Range Interpretation Comments MCHC (test code = MCHC) 32.3 32.0-36.0 [facility] CenterDlowzflJSEFNIKSPI1567-17-52 14:38:00 Test Item Value Reference Range Interpretation Comments RDW (test code = RDW) 14.3 11.5-14.5 [facility] CenterAskppraRGSITJWWTN5102-40-87 14:38:00 Test Item Value Reference Range Interpretation Comments MPV (test code = MPV) 9.3 7.4-10.4 [facility] CenterXwneupyDIPHOOTLIT7458-74-36 14:38:00 Test Item Value Reference Range Interpretation Comments Platelet (test code = Platelet) 193 133-450 [facility] CenterLlcwgjsWIVWQYEIOE7549-76-87 14:38:00 Test Item Value Reference Range Interpretation Comments Basophils # (test code 0.0 See_Comment [Aut omated message] The = Basophils #) system which generated this result tra nsmitted reference range : <=0.2. The reference r lv was not used to int erpret this result as normal/abnormal . [facility] CenterQukpurwBHHXEDQKCS4196-51-48 14:38:00 Test Item Value Reference Range Interpretation Comments Segs (test code = Segs) 61.4 45.0-75.0 [facility] CenterNjzrnooZPONOOOLSK4249-26-31 14:38:00 Test Item Value Reference Range Interpretation Comments Lymphocytes (test code = Lymphocytes) 30.9 20.0-40.0 [facility] CenterJosrwquYHSGBJLVVD1384-97-08 14:38:00 Test Item Value Reference Range Interpretation Comments Lymphocytes # (test code = Lymphocytes 2.3 1.0-5.5 #) [facility] CenterXtpdhxuTFHGGUEBRG5608-89-91 14:38:00 Test Item Value Reference Range Interpretation Comments Monocytes # (test code 0.4 See_Comment [Aut omated message] The = Monocytes #) system which generated this result tra nsmitted reference range : <=0.8. The reference r lv was not used to int erpret this result as normal/abnormal . [facility] CenterNmifyzfXXWBXKPEQM6902-84-88 14:38:00 Test Item Value Reference Range Interpretation Comments Segs-Bands # (test code = Segs-Bands #) 4.5 1.5-8.1 [facility] CenterSwirhapACTOJIKPKZ2046-41-94 14:38:00 Test Item Value Reference Range Interpretation Comments Basophils (test code = 0.5 See_Comment [Aut omated message] The Basophils) system which ge nerated this result tra nsmitted reference range : <=1.0. The reference r lv was not used to int erpret this result as normal/abnormal . [facility] CenterGyniwfeAEFDHFXRET9686-37-00 14:38:00 Test Item Value Reference Range Interpretation Comments Monocytes (test code = Monocytes) 5.8 2.0-12.0 [facility] CenterRordccvEDVVGWZZVR8638-40-21 14:38:00 Test Item Value Reference Range Interpretation Comments Eosinophils (test code = 1.4 See_Comment [A utomated message] The Eosinophils) system which ge nerated this result tra nsmitted reference range : <=4.0. The reference r lv was not used to int erpret this result as normal/abnormal . [facility] CenterBttbjqiSCSUZJGHDP4920-07-20 14:38:00 Test Item Value Reference Range Interpretation Comments Eosinophils # (test code 0.1 See_Comment [A utomated message] The = Eosinophils #) system whic h generated this result tra nsmitted reference range : <=0.5. The reference r lv was not used to int erpret this result as normal/abnormal . [facility] CentralHonlahgXWCUWGAFGO9041-09-58 14:38:00 Test Item Value Reference Range Interpretation Comments HIV 1/2 Ab (test code Negative *NA*(08/03/15 = HIV 1/2 Ab) 9:38 AM) [facility] CentralVqnphwrSISTPYXZXK2658-48-24 14:38:00 Test Item Value Reference Range Interpretation Comments Hep C Ab (test code = Negative *NA*(08/03/15 Hep C Ab) 9:38 AM) [facility]
[2022-05-03 12:41] LABS: Absolute Lymphocytes (CBC) 2.5 K/uL (0.7-4.9); Hematocrit 41.2 % (36.0-45.0); Lymphocytes % 36.7 % (15.3-44.8); MCV 82.7 fL (80-100); MPV 7.7 fL (7.6-11.3); RBC Red Blood Cell Count 4.98 M/uL (3.86-4.86)
[2022-05-03 12:50] LABS: Potassium 4.4 mEq/L (3.5-5.1)
[2022-05-03] MEDS ORDERED: MORPHINE 4 MG/ML SYR ONE (14:18)
[2022-05-03] MEDS ORDERED: ONDANSETRON 4 MG/2 ML VIAL ONE (14:18)
--- NOTE | 2022-05-03 14:37 | EDPHYS ---
Physician Documentation [facility] Name: Bob Armstrong Age: 61 yrs Sex: Female : 1960 Arrival Date: 05/03/2022 Time: 11:00 Bed 12 Private MD: ED Physician José Antonio Altamirano HPI: 05/03 11:38 This 61 yrs old Female presents to ER via Ambulatory with complaints of Foot Pain, Feet jmm Swelling. 11:38 The patient presents with pain. Onset: The symptoms/episode began/occurred gradually, 1 jmm week(s) ago. Modifying factors: The symptoms are alleviated by nothing. the symptoms are aggravated by nothing. This is a 61 year old female with a history of arthritis, anxiety, depression that presents to the ED with complaints of pain to her left foot. Recently finished course of abx which has decreased swelling and redness. Patient continues to have pain. Does take gabapentin for neuropathic pain. . 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 - Social history:: Smoking status: Patient denies any tobacco usage or history of. ROS: 11:38 Constitutional: Negative for fever, chills, and weight loss, Cardiovascular: Negative jmm for chest pain, palpitations, and edema, Respiratory: Negative for shortness of breath, cough, wheezing, and pleuritic chest pain. 11:38 MS/extremity: Positive for pain, swelling. 11:38 All other systems are negative. Exam: 11:38 Constitutional: This is a well developed, well nourished patient who is awake, alert, jmm and in no acute distress. Head/Face: atraumatic. Eyes: EOMI, no conjunctival erythema appreciated ENT: Moist Mucus Membranes Neck: Trachea midline, Supple Chest/axilla: Normal chest wall appearance and motion. Cardiovascular: Regular rate and rhythm. No edema appreciated Respiratory: Normal respirations, no respiratory distress appreciated Abdomen/GI: Non distended Back: Normal ROM Skin: General appearance color normal 11:38 Musculoskeletal/extremity: no swelling appreciated to the left foot, compartments soft, NVI. 11:38 Skin: Appearance: Color: normal in color. 11:38 Neuro: Motor: is normal. 11:38 Psych: Behavior/mood is pleasant, cooperative. Vital Signs: 12:04 BP 136 / 110; Pulse 90; Resp 17; Temp 97.8; Pulse Ox 100% ; Weight 102.06 kg; Height 5 jl7 ft. 11 in. ; Pain 9/10; 12:04 Body Mass Index 31.38 (102.06 kg, 180.34 cm) [facility] 12:04 Pain Scale: Adult [facility] MDM: 11:38 Patient medically screened. [facility] 15:17 Differential diagnosis: cellulitis, peripheral neuopathy. Data reviewed: vital signs, [facility] nurses notes, lab test result(s). I considered the following discharge prescriptions or medication management in the emergency department Medications were administered in the Emergency Department. See MAR. Counseling: I had a detailed discussion with the patient and/or guardian regarding: the historical points, exam findings, and any diagnostic results supporting the discharge/admit diagnosis, lab results, the need for outpatient follow up, to return to the emergency department if symptoms worsen or persist or if there are any questions or concerns that arise at home. ED course: Patient is alert and non toxic in appearance in the ED. Labs unremarkable. patient advised to follow up with pcp and otherwise given strict return precautions. Patient understood and agrees with the plan of care. . 05/03 12:15 Order name: CBC with Diff; Complete Time: 12:43 [facility] 05/03 12:15 Order name: BMP; Complete Time: 12:55 [facility] 05/03 12:15 Order name: Lactate w/ 2H reflex if indic.; Complete Time: 12:55 [facility] 05/03 12:15 Order name: Saline Lock; Complete Time: 12:32 [facility] Administered Medications: 14:25 Drug: morphine IVP or IV 4 mg Route: IVP; Infused Over: 4 mins; Site: right antecubital;jl7 14:45 Follow up: Response: No adverse reaction; Pain is decreased [facility] 14:25 Drug: Ondansetron IVP 4 mg Route: IVP; Site: right antecubital; jl7 15:00 Follow up: Response: No adverse reaction jl7 Disposition: 18:03 Co-signature as Attending Physician, José Antonio Altamirano MD I reviewed the patient's care rt provided by the Advanced Practice Provider and agree with the diagnosis and treatment plan. Disposition Summary: 05/03/22 14:37 Discharge Ordered Location: Home [facility] Condition: Stable jmm Diagnosis - Pain in left foot [facility] Followup: [facility] - With: Private Physician - When: 2 - 3 days - Reason: Recheck today's complaints, Continuance of care, Re-evaluation by your physician Discharge Instructions: - Discharge Summary Sheet [facility] - Foot Pain [facility] Forms: - Medication Reconciliation Form [facility] - Thank You Letter [facility] - Antibiotic Education [facility] - Prescription Opioid Use [facility] Prescriptions: - Diclofenac Sodium 75 mg Oral Tablet Sustained Release - take 1 tablet by ORAL route 2 times per day; 30 tablet; Refills: 0, Product [facility] Selection Permitted - orphenadrine citrate 100 mg Oral Tablet Sustained Release - take 1 tablet by ORAL route 2 times per day As needed; 20 tablet; Refills: 0, [facility] Product Selection Permitted Signatures: Dispatcher [employer] EDJames Weiner PA PA jmm Leal, Jahala, RN RN jl7 José Antonio Altamirano MD MD rt
--- NOTE | 2022-05-03 14:37 | ER ---
Nurse's Notes [facility] Name: Bob Armstrong Age: 61 yrs Sex: Female : 1960 Arrival Date: 05/03/2022 Time: 11:00 Bed 12 Private MD: Diagnosis: Pain in left foot Presentation: 05/03 12:04 Chief complaint: Patient states: Left foot pain and swelling x 2 weeks, unable to get jl7 in with PCP for a long time. Coronavirus screen: At this time, the client does not indicate any symptoms associated with coronavirus-19. Ebola Screen: No symptoms or risks identified at this time. Initial Sepsis Screen: Does the patient meet any 2 criteria? No. Patient's initial sepsis screen is negative. Does the patient have a suspected source of infection? No. Patient's initial sepsis screen is negative. Risk Assessment: Do you want to hurt yourself or someone else? Patient reports no desire to harm self or others. Onset of symptoms is unknown. 12:04 Method Of Arrival: Ambulatory jl7 12:04 Acuity: JERRY 3 jl7 Triage Assessment: 12:05 General: Appears in no apparent distress. uncomfortable, Behavior is calm, cooperative, jl7 appropriate for age. Pain: Complains of pain in left foot Pain currently is 9 out of 10 on a pain scale. Neuro: Level of Consciousness is awake, alert, obeys commands, Oriented to person, place, time, situation. 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 - Social history:: Smoking status: Patient denies any tobacco usage or history of. Assessment: 14:00 Reassessment: Patient appears in no apparent distress at this time. Patient and/or jl7 family updated on plan of care and expected duration. Pain level reassessed. Patient is alert, oriented x 3, equal unlabored respirations, skin warm/dry/pink. Patient states symptoms have improved. Vital Signs: 12:04 BP 136 / 110; Pulse 90; Resp 17; Temp 97.8; Pulse Ox 100% ; Weight 102.06 kg; Height 5 jl7 ft. 11 in. ; Pain 9/10; 12:04 Body Mass Index 31.38 (102.06 kg, 180.34 cm) jl7 12:04 Pain Scale: Adult jl7 ED Course: 11:00 Patient arrived in ED. rg4 11:24 James Gutierrez PA is PHCP. [facility] 11:24 José Antonio Altamirano MD is Attending Physician. [facility] 12:05 Triage completed. jl7 12:05 Arm band placed on right wrist. jl7 12:32 Lactate w/ 2H reflex if indic. Sent. bc6 12:32 BMP Sent. bc6 12:32 CBC with Diff Sent. bc6 12:32 Inserted saline lock: 20 gauge in right antecubital area, using aseptic technique. 6 12:42 Alvino Diaz RN is Primary Nurse. jl7 14:00 Patient has correct armband on for positive identification. jl7 15:27 No provider procedures requiring assistance completed. IV discontinued, intact, jl7 bleeding controlled, No redness/swelling at site. Pressure dressing applied. Administered Medications: 14:25 Drug: morphine IVP or IV 4 mg Route: IVP; Infused Over: 4 mins; Site: right antecubital;jl7 14:45 Follow up: Response: No adverse reaction; Pain is decreased jl7 14:25 Drug: Ondansetron IVP 4 mg Route: IVP; Site: right antecubital; jl7 15:00 Follow up: Response: No adverse reaction jl7 Medication: 14:00 VIS not applicable for this client. jl7 Outcome: 14:37 Discharge ordered by . [facility] 15:27 Discharged to home with family. jl7 15:27 Condition: stable 15:27 Discharge instructions given to patient, Instructed on discharge instructions, follow up and referral plans. medication usage, Demonstrated understanding of instructions, follow-up care, medications, Prescriptions given X 2. 15:30 Patient left the ED. jl7 Signatures: James Gutierrez PA PA jmm Garcia, Rubi rg4 Alvino Diaz, DANTE RN jl7 [facility]
[2022-05-03 15:38] VITALS: BP 136/110; TEMP 97.8; O2SAT 100
== END 2022-05-03 15:30 | disposition home or self-care (01) ==
LOC: ER 10:47
DX: M79.672 Pain in left foot (principal); Z88.1 Allergy status to other antibiotic agents; Z88.8 Allergy status to other drugs, medicaments and biological substances
CPT/HCPCS: 85025; 80048; 36415; 83605; 96375; 96374; 99284; J2405

== ENCOUNTER 2022-07-17 12:00 | Emergency (ER) | payer OTHER ==
--- OUTSIDE RECORDS SUMMARY | 2022-07-17 12:31 | XMS REPORT | Continuity of Care Document ---
:1960 Author Organization [facility] t Address [address] [place] [address] Care Team Providers Name Role Phone Luciano Travis Primary Care Physician [phone] Luciano Travis Attending Clinician Unavailable ANDRESSA PUCKETT Attending Clinician Unavailable SHEFALI HOOPER Attending Clinician Unavailable QUINN SKINNER Attending Clinician Unavailable QUINN SKINNER Attending Clinician Unavailable KARAN JOHNSON Attending Clinician Unavailable Karan Johnson MD Attending Clinician Brody Hinds MD Attending Clinician Tuyet Cleveland MD Attending Clinician Aba Estrada MD Attending Clinician [phone] BRODY HINDS Attending Clinician Unavailable Doctor Unassigned, Babbie Attending Clinician Unavailable Ct Spence RN Attending [...] Clinician Chloe Minor MD Attending Clinician Rena Mani Attending Clinician SHEFALI HOOPER NP Attending Clinician Unavailable ALVERN HUFFMAN Attending Clinician Unavailable Julio C Rutherford Attending Clinician ANDRESSA PUCKETT M.D. Attending Clinician Unavailable Andressa Puckett Attending Clinician TUYET CLEVELAND Admitting Clinician Unavailable CHLOE MINOR Admitting Clinician Unavailable Payers Payer Name Policy Type Policy Number Effective Date Expiration Date S gaby [facility] [id number] 2020 00:00:00 [employer] MEDICARE [id number] 2020 00:00:00 [id number] 2021 [facility] ADVANTAGE 00:00:00 - [facility] [id number] 2013 2020 00:00:00 00:00:00 Problems Condition Condition [...] EAR" 00:01: He naomi Active 00 11/11/2019 CASSIE OPID [facility] Troponin I Troponin I Disease Active U [...] 12:48:00 l Active 00:00: Amador 04/01/2016 00 [facility] STRESS STRESS Diagnosis Active 2015-08-10 Me moria URINARY URINARY 4-14 07:24:00 l INCONTINEN INCONTINEN 00:00: Mikel salgado CE-N39.3 / CE-N39.3 / 00 URET URET Active 05/25/2015 [facility] R31.2 - R31.2 - Diagnosis Active 2015-06-06 Memoria OTHER OTHER 3-14 16:22:00 l MICROSCOPI MICROSCOPI 00:01: Mikel salgado C C 00 HEMATURIA HEMATURIA Active 04/24/2015 [facility] Amador, OPID [facility] 727.00 - 727.00 - Diagnosis Active 2011-09-02 Memoria SYNOVITIS SYNOVITIS 08-29 08:58:00 l NOS NOS Active 00:01: Randy iqbal 08/30/2011 00 [facility] History of [...] d 23:02:23 l Resolved [place]ador Problem 11/26/2019 Tomasa Farrar [facility] Depressive Problem Resolve 2019-11-26 Memoria disorder Depressive d 23:02:23 l (disorder) disorder Herm archana (disorder) Resolved Problem 11/26/2019 Tomasa Farrar [facility] Diabetes Diabetes Problem Resolve 2019-11-26 Memoria mellitus mellitus d 23:02:23 l (disorder) (disorder) He rmann Resolved Problem 11/26/2019 Tomasa Farrar [facility] Endometrio Endometri Problem Resolve 2019-11-26 Memoria sis osis d 23:02:23 l (disorder) (disorder) He rmann Resolved Problem 11/26/2019 Tomasa Farrar [facility] Fibromyosi Fibromyos Problem Resolve 2019-11-26 Memoria tis itis d 23:02:23 l (disorder) (disorder) He rmann Resolved Problem 11/26/2019 Tomasa Farrar [facility] Lumbar Lumbar Problem Resolve 2019-11-26 Mem oria spondylosi spondylosi d 23:02:23 l s s Amador (disorder) (disorder) Resolved Problem 11/26/2019 Tomasa Farrar [facility] Motion Motion Problem Resolve 2019-11-26 Mem oria sickness sickness d 23:02:23 l (disorder) (disorder) He rmann Resolved Problem 11/26/2019 Tomasa Farrar [facility] Neuropathy Neuropath Problem Resolve 2019-11-26 Memoria (disorder) y d 23:02:23 l (disorder) Randy n Resolved Problem 11/26/2019 Tomasa Farrar [facility] Sleep Sleep Problem Resolve 2019-11-26 Alonzo summer apnea apnea d 23:02:23 l (finding) (finding) Herm archana Resolved Problem 11/26/2019 Tomasa Farrar [facility] Restless Restless Problem Commo n legs leg Spirit syndrome syndrome - [facility] Fibromyalg Fibromyalg Problem C ommon ia ia [facility] Type II Diabetes Problem Common diabetes type 2, Spirit mellitus controlled - CH I well controlled [facility] Morbid Morbid Problem Common obesity obesity Spirit - [facility] [id number] Body mass Problem Com mon index Spirit [BMI] - CHI 32.0-32.9, [facility] [id number] Other Problem Common obesity Spirit due to - [facility]I excess [facility] Diabetic Diabetic Problem Commo n neuropathy neuropathy Sp marco antonio - CH[facility] Fatty Fatty Problem Common liver liver [facility] Insomnia Insomnia Problem Commo n Spirit - [facility] [id number] Incontinen Problem Com mon ce of Spirit feces, - CHI unspecifie [facility] fecal [facility] incontinen Medica l ce type Center [id number] Psoriatic Problem Com mon arthritis [facility] Bipolar Bipolar Problem Common disorder disorder [facility] [id number] GERD Problem Common without Spirit esophagiti - 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 spine [facility] [id number] Macular Problem Comm on hole of Spirit left eye [facility] Mixed Hyperlipid Problem Commo n hyperlipid emia, Spirit emia mixed [facility] Iron Iron Problem Common deficiency deficiency Sp marco antonio anemia due anemia due - CHI to chronic to chronic St blood loss blood loss [facility] Obstructiv Obstructiv Problem C ommon e sleep e sleep Spirit apnea apnea - [facility] Overactive Overactive Problem C ommon bladder bladder [facility] [id number] Chronic Problem Common obstructiv Spirit e - CHI pulmonary [facility] unspecifie Medica l d COPD Center type [id number] Primary Problem Commo n osteoarthr Spirit itis of - CHI both knees [facility] [id number] Urinary Problem Commo n incontinen Spirit ce, - CHI unspecifie [facility] [id number] Altered Problem Commo n mental Spirit status, - CHI unspecifie [facility] altered [facility] mental Medical status Center type [id number] jail Problem Com mon (current) Spirit use of - CHI insulin [facility] [id number] Decreased Problem Com mon vision of Spirit left eye - [facility] Essential Benign Problem Common hypertensi essential Spi rit on HTN - [facility] [id number] Daytime Problem Comm on 00 somnolence [facility] Vitamin D Vitamin D Problem Com mon deficiency deficiency Sp marco antonio [facility] Rheumatoid Rheumatoid Problem C ommon arthritis arthritis Spir it [facility] [id number] Type 2 Problem Common diabetes [facility] mellitus - [facility] with [facility] chronic [facility] kidney Center disease [id number] Type 2 Problem Common diabetes Spirit mellitus - [facility] with [facility] [id number] Memory Problem Common change [facility] [id number] History of Problem Co mmon suicidal [facility] ideation [facility] History of Past Illness Condition Condition Condition Status Onset Resolution Last Treating Co mments Source Name Details Category Date Date Treatment Clinician Date Discharge Problem 2016-04-04 2016-04-04 Memoria Diagnosis: Discharge 04-01 04:32:29 04:32:29 l Pain and Diagnosis: 06:00: Herm archana swelling Pain and 00 of right swelling knee of right knee 04/01/2016 04/04/2016 [facility] Allergies, Adverse Reactions, Alerts Allergy Allergy Status [...] Branch Lactase Allergy Active Diarrhea [place] to 07-21 Health substanc 00:00: e 00 Lactase Propensi Active Diarrhea Unive rs ty to 6 ity of adverse 00:00: [place] reaction 00 Medical s Branch Pregabal Propensi Active Swelling Univ ers in ty to 07-21 ity of adverse 00:00: [place] reaction 00 Medical s Branch LACTASE DRUG Active Diarrhea Univers INGREDI 07-21 ity of 00:00: [place] [facility] PREGABAL DRUG Active Swelling Univer [...] pregabal Active Unknown Commo n in in [facility] canaglif canaglif Active Unknown Commo n oralia [place] [facility] Methylpr Methylpr Active Unknown Commo n [place] [facility] glimepir glimepir Active Unknown Commo n timothy timothy [facility] [id number] Drug Active Unknown Common allergy [facility] Lyrica Lyrica Active Memoria l [place] Latex [...] Phys icians diabetes mellitus Natural father Stroke [facility] Natural mother Lung cancer [facility] Social History Social Habit Start Date Stop Date Quantity Comments Source History of Tobacco [facility] - Use [facility] Gender identity [facility] Alcohol intake 2022-01-25 2022-01-25 Ex-drinker [facility] 00:00:00 00:00:00 (finding) Hospital History of Social 2022-01-25 2022-01-[address] function 00:00:00 00:00:00 Hospital Alcohol Comment 2022-01-24 2022-01-24 rarely [facility] 00:00:00 00:00:00 Hospital Exposure to 2021-10-10 2021-10-20 Not sure [facility] SARS-CoV-2 (event) 00:00:00 15:53:00 Tobacco use and 2020-06-22 2020-06-22 Smokeless Protestant exposure 00:00:00 00:00:00 tobacco non-user Hospital Social History 2015-08-03 2015-08-03 [facility] 14:18:54 14:18:54 Sex [birth year] At [birth year] [facility] 00:00:00 00:00:00 Hospital Smoking Status Start Date Stop Date Source Never smoked tobacco [facility] Medications Ordered Filled Start Stop Current Ordering Indication Dosage Frequency Signature Comments Components Source Medication Medication Date Date Medication? Clinician (SIG) Name Name semaglutide Yes 1mg inject 1 Un emanuel (OZEMPIC) 1 4-25 mg under ity of mg/dose (4 00:00: the skin Lionel as mg/3 mL) 00 weekly. Medical PnIj Branch Promethazin Promethazin 2022- No 10{ml_a TID Promethazi e HCl 6.25 e HCl 6.25 02-18 s_neede ne HCl MG/5ML MG/5ML 00:00: 00:00 d} 6.25 00 :00 MG/5ML predniSONE predniSONE 2021-02- No QD predniSONE 20 MG 20 MG 2-30 - 20 MG 00:00: 00:00 00 :00 predniSONE predniSONE 2021-02- No QD predniSONE 20 MG 20 MG 2-30 - 20 MG 00:00: 00:00 00 :00 [...] l tablet day. PILOCARPINE 2021-02 Yes 7.5mg Q.[id number] Take 7.5 [facility] HCL ORAL 2-[id number] 03:06: 3D mouth 3 [...] 07 l lithium 300 2021-02 Yes 300mg Q.[id number] Take 300 [facility] MG capsule 2-[id number] 03:06: 3D mouth 3 [...] 30 (thirty) days. insulin 2021-02 Yes 22U Q.[id number] Inject 22 Methodi lispro 2-[id number] (HUMALOG 03:06: 3D under the [...] l tablet day. PILOCARPINE 2021-02 Yes 7.5mg Q.[id number] Take 7.5 [facility] HCL ORAL 2-[id number] 03:06: 3D mouth 3 [...] 07 l lithium 300 2021-02 Yes 300mg Q.[id number] Take 300 [facility] MG capsule 2-[id number] 03:06: 3D mouth 3 [...] 30 (thirty) days. insulin 2021-02 Yes 22U Q.[id number] Inject 22 [facility]i lispro 2-[id number] (HUMALOG 03:06: 3D under the [...] l tablet day. PILOCARPINE 2021-02 Yes 7.5mg Q.[id number] Take 7.5 [facility] HCL ORAL 2-[id number] 03:06: 3D mouth 3 [...] 07 l lithium 300 2021-02 Yes 300mg Q.[id number] Take 300 [facility] MG capsule 2-[id number] 03:06: 3D mouth 3 [...] 30 (thirty) days. insulin 2021-02 Yes 22U Q.[id number] Inject 22 [facility]i lispro 2-[id number] (HUMALOG 03:06: 3D under the [...] l tablet day. PILOCARPINE 2021-02 Yes 7.5mg Q.[id number] Take 7.5 [facility] HCL ORAL 2-[id number] 03:06: 3D mouth 3 [...] nightly. Hospita tablet 07 l lithium 300 2022-1 Yes 300mg Q.[id number] Take 300 Methodi MG capsule 2-[id number] 03:06: 3D mouth 3 [...] 30 (thirty) days. insulin 2021-02 Yes 22U Q.[id number] Inject 22 [facility]i lispro 2-[id number] (HUMALOG 03:06: 3D under the [...] l tablet day. PILOCARPINE 2021-02 Yes 7.5mg Q.[id number] Take 7.5 [facility] HCL ORAL 2-[id number] 03:06: 3D mouth 3 [...] 07 l lithium 300 2021-02 Yes 300mg Q.[id number] Take 300 [facility] MG capsule 2-[id number] 03:06: 3D mouth 3 [...] 30 (thirty) days. insulin 2021-02 Yes 22U Q.[id number] Inject 22 [facility]i lispro 2-[id number] (HUMALOG 03:06: 3D under the [...] l tablet day. PILOCARPINE 2021-02 Yes 7.5mg Q.[id number] Take 7.5 [facility] HCL ORAL 2-[id number] 03:06: 3D mouth 3 [...] times a day as needed for anxiety. celecoxib 2021-02 Yes 200mg Q.5D Take 200 Met [facility] (CeleBREX) 2-[address] 200 MG 03:06: mouth 2 Hospita capsule 07 (two) l times a day. hydroxychlo 2021-02 Yes Q.5D Take by Met hodi roquine 2-[address] (PLAQUENIL) 03:06: (two) Hospi ta 200 mg 07 times a l tablet day. PILOCARPINE 2021-02 Yes 7.5mg Q.[id number] Take 7.5 Methodi HCL ORAL 2-[id number] 03:06: 3D mouth 3 [...] pen 07 every 7 l injector days. cycloSPORIN 2021-02 Yes 1[drp] Q.5D Administer Methodi E 2-[address] (RESTASIS) 03:06: both eyes Ho spita 0.05 % 07 2 (two) l ophthalmic times a emulsion day. aspirin 2021-02 Yes 81mg QD Take 81 [...] 07 l lithium 300 2021-02 Yes 300mg Q.[id number] Take 300 Methodi MG capsule 2-[id number] 03:06: 3D mouth 3 [...] 07 catheter l every 30 (thirty) days. doxepin 2021-02 Yes 10mg QD Take 10 mg Meth gwen (SINEquan) 2-[address] 10 MG 03:06: nightly. Hospita capsule 07 l insulin 2021-02 Yes 22U Q.[id number] Inject 22 Methodi lispro 2-[id number] (HUMALOG 03:06: 3D under the [...] 100 unit/mL (3 mL) subcutaneou s pen leflunomide 2021-02 Yes 20mg QD Take 20 mg Methodi (ARAVA) 20 2-[address] MG tablet 03:06: nightly. Hosp ruiz 07 l atorvastati 2021-02 Yes 10mg QD Take 10 mg Methodi n (LIPITOR) 2-[address] 10 mg 03:06: nightly. Hospita tablet 07 l lithium 300 2021-02 Yes 300mg Q.[id number] Take 300 Methodi MG capsule 2-[id number] 03:06: 3D mouth 3 [...] 30 (thirty) days. insulin 2021-02 Yes 22U Q.[id number] Inject 22 [facility] lispro 2-[id number] (HUMALOG 03:06: 3D under the [...] l tablet day. PILOCARPINE 2021-02 Yes 7.5mg Q.[id number] Take 7.5 [facility] HCL ORAL 2-[id number] 03:06: 3D mouth 3 [...] 07 l lithium 300 2021-02 Yes 300mg Q.[id number] Take 300 Methodi MG capsule 2-[id number] 03:06: 3D mouth 3 [...] 30 (thirty) days. insulin 2021-02 Yes 22U Q.[id number] Inject 22 Methodi lispro 2-[id number] (HUMALOG 03:06: 3D under the [...] botulinum 2021- No 100U UT toxin Type 9-14 0914 Health A (Cosm) 18:30: 20:58 (Botox) 00 :00 injection 100 Units botulinum 2021- No 100U 100 Units, U T toxin Type 10-24 Intramuscu He alth A (Cosm) 18:30: 20:58 lar, Once, (Botox) 00 :00 On Wed injection 10/24/21 at 100 Units 1330, For 1 dose
In dications: urgency incontinen ce lisinopril- 2021-0 Yes 1{tbl} QD Take 1 UT hydroCHLORO 9-14 tablet by Hea lt thiazide 14:07: mouth 1 20-12.5 MG 53 (one) time tablet each day. leflunomide 2-0 Yes 20mg QD Take 20 mg UT (Arava) 20 9-14 by mouth 1 Hea lth MG tablet 14:07: (one) time 53 each day. lisinopril- 2-0 Yes 1{tbl} QD Take 1 UT hydroCHLORO 9-14 tablet by Hea lt thiazide 14:07: mouth 1 20-12.5 MG 53 (one) time tablet each day. leflunomide 2-0 Yes 20mg QD Take 20 mg UT (Arava) 20 10-24 by mouth 1 Hea lth MG tablet 14:07: (one) time 53 each day. gabapentin 2021-0 Yes 1{capsu 1 capsule. UT (Neurontin) 10-24 le} Health 300 MG 14:04: capsule 54 gabapentin 2021-0 Yes 1{capsu 1 capsule. UT (Neurontin) 10-24 le} Health 300 MG 14:04: capsule 54 sulfamethox 2021-0 2021- No [id number] 1{tbl} Q.5D Take 1 UT azole-trime 10-24 tablet by He alth thoprim 00:00: 04:59 mouth in (Bactrim 00 :00 the DS) 800-160 morning MG tablet and 1 tablet in the evening. Do all this for 7 days. sulfamethox 2021-0 2021- No [id number] 1{tbl} Q.5D Take 1 UT azole-trime 10-24 tablet by He alth thoprim 00:00: 04:59 mouth in (Bactrim 00 :00 the DS) 800-160 morning MG tablet and 1 tablet in the evening. Do all this for 7 days. gabapentin 2021-0 Yes 1200mg Take 1,200 Univers 600 mg 8-31 mg by ity of tablet 13:32: mouth in [place] [address] the Medical morning Branch and 1,200 mg in the evening. gabapentin 2022-0 Yes 1200mg Take 1,200 Univers 600 mg 8-31 mg by ity of tablet 13:32: mouth in [place] [address] the Medical morning Branch and 1,200 mg in the evening. gabapentin 2022-0 Yes 1200mg Take 1,200 Univers 600 mg 8-31 mg by ity of tablet 13:32: mouth in [place] [address] the Medical morning Branch and 1,200 mg in the evening. gabapentin 2022-0 Yes 1200mg Take 1,200 Univers 600 mg 8-31 mg by ity of tablet 13:32: mouth in [place] [address] the Medical morning [place] and 1,200 mg in the evening. gabapentin 2022-0 Yes 1200mg Take 1,200 Univers 600 mg 8-31 mg by ity of tablet 13:32: mouth in [address] Medical morning [place] and 1,200 mg in the evening. gabapentin 2022-0 Yes 1200mg Take 1,200 Univers 600 mg 8-31 mg by ity of tablet 13:32: mouth in [address] Medical morning [place] and 1,200 mg in the evening. prednisoLON 2021-0 2021- No 1[drp] 1 Drop U nivers E acetate 1 -10 10- every 2 ity of % 13:30: 00:00 (two) [place] ophthalmic 41 :00 hours as Medic al suspension needed for Bra nch drops Itching. prednisoLON 2021-0 2021- No 1[drp] 1 Drop U nivers E acetate 1 10-10 08- every 2 ity of % 13:30: 00:00 (two) [place] ophthalmic 41 :00 hours as Medic al suspension needed for Bra nch drops Itching. pilocarpine 2021-0 202- No 7.5mg Take 7.5 Univers 7.5 mg 8-31 08-31 mg by ity of tablet 13:30: 00:00 mouth 3 [place] 38 :00 (three) Medical times Branch daily. pilocarpine 2022-0 2- No 7.5mg Take 7.5 Univers 7.5 mg 8-31 08-31 mg by ity of tablet 13:30: 00:00 mouth 3 [place] 38 :00 (three) Medical times Branch daily. Milnacipran 2021- No 50mg Take 50 mg Univers (SAVELLA) 10-10 by mouth ity o f 50 mg 13:30: 00:00 at [place] tablet 29 :00 bedtime. Medical Branch Milnacipran 2021- No 50mg Take 50 mg Univers (SAVELLA) 10-10 by mouth ity o f 50 mg 13:30: 00:00 at [place] tablet 29 :00 bedtime. Medical Branch suvorexant 2021- No 20mg Take 20 mg Univers (BELSOMRA) 10-10 by mouth ity of 20 mg Tab 13:30: 00:00 at [place] 19 :00 bedtime. Medical Branch suvorexant 2021- No 20mg Take 20 mg Univers (BELSOMRA) 10-10 by mouth ity of 20 mg Tab 13:30: 00:00 at [place] 19 :00 bedtime. Medical Branch simvastatin 2021- No 40mg Take 40 mg Univers 40 mg 10-10 by mouth ity of tablet 13:30: 00:00 at [place] 04 :00 bedtime. Medical Branch simvastatin 2021- No 40mg Take 40 mg Univers 40 mg 10-10 by mouth ity of tablet 13:30: 00:00 at [place] 04 :00 bedtime. Medical Branch insulin 2021- [...] the [place] (TOUJEO 49 :00 skin. [facility] [place] [facility] Branch U-300 INSULIN) 300 unit/mL (1.5 mL) InPn traZODONE 2021- No 100mg Take Univer s 100 mg 10-10 100-200 mg ity of tablet 13:: 00:00 by mouth [place] 30 :00 at bedtime Medical as needed Branch for Insomnia. traZODONE 2021-2021- No 100mg Take Univer s 100 mg 10-10 100-200 mg ity of tablet 13:29: 00:00 by mouth [place] 30 :00 at bedtime Medical as needed Branch for Insomnia. SERTraline 2021-2021- No 50mg Take 50 mg Univers 50 mg 10-10 by mouth. ity of tablet 13:: 00:00 [place] 05 :00 Medical Branch SERTraline 2021-0 2021- No 50mg Take 50 mg Univers 50 mg 10-10 by mouth. ity of tablet 13:: 00:00 [place] 05 :00 Medical Branch lithium 2021-2021- No 300mg Take 300 Univ ers carbonate 10-10-31 mg by ity of 300 mg 13:28: 00:00 mouth. [place] capsule 53 :00 [facility] Branch lithium 2021- No 300mg Take 300 Univ ers carbonate 10-10-31 mg by ity of 300 mg 13:28: 00:00 mouth. [place] capsule 53 :00 [facility] Branch hydroxychlo 2021-2021- No 200mg Take 200 Univers [...] by mouth ity of 13:28: 00:00 daily. [place] :00 [facility] Branch foLIC acid 2021- No 2mg Take 2 mg U nivers 1 mg tablet 10-10 by mouth ity of 13:28: 00:00 daily. [place] 25 :00 [facility] Branch exenatide 2021-2021- No 2mg inject 2 Uni vers microsphere 8-31 08-31 mg under ity of s 2 mg/0.65 13:27: 00:00 the skin. [place] mL 56 :00 Medical injection Branch exenatide 2021- No 2mg inject 2 Uni vers microsphere 8 08-31 mg under ity of s 2 mg/0.65 13:27: 00:00 the skin. [place] mL 56 :00 Medical injection Branch doxepin 10 2021- No 10mg Take 10 mg Univers mg capsule 10-10 by mouth. ity of 13:27: 00:00 [place] 38 :00 Medical Branch doxepin 10 2021- No 10mg Take 10 mg Univers mg capsule 10-10 by mouth. ity of 13:27: 00:00 [place] 38 :00 Medical Branch cycloSPORIN 2021-2021- No 1[drp] Place 1 Univers E 10-1031 Drop in ity of (RESTASIS) 13:27: 00:00 [...] 32 :00 times Medical daily. Branch cyclobenzap 2021-2021- No 10mg Take 10 mg Univers rine 10 mg 10-10-31 by mouth 3 it y of tablet 13:27: 00:00 (three) [place] 32 :00 times Medical daily. Branch celecoxib 2021-0 2021- No 200mg Take 200 Un emanuel (CELEBREX) 8-31 08-31 mg by ity of 200 mg 13:27: 00:00 mouth 2 [place] capsule 25 :00 (two) Medical times Branch daily. celecoxib 2021-0 2- No 200mg Take 200 Un emanuel (CELEBREX) 8-31 08-31 mg by ity of 200 mg 13:27: 00:00 mouth 2 [place] capsule 25 :00 (two) Medical times Branch daily. aspirin 81 2021- No 81mg Take 81 mg Univers mg chewable 10-10 by mouth ity of tablet 13:27: 00:00 daily. [place] 22 :00 Medical Branch aspirin 81 2021- No 81mg Take 81 mg Univers mg chewable 10-10 by mouth ity of tablet 13:27: 00:00 daily. [place] 22 :00 Medical Branch Armodafinil 2021- No [...] ity of 20 mg 13:27: 00:00 at [place] tablet 16 :00 bedtime. Medical Branch ARIPiprazol 2021- No 20mg Take 20 mg Univers e (ABILIFY) 10-10 by mouth ity of 20 mg 13:27: 00:00 at [place] tablet 16 :00 bedtime. Medical Branch insulin [...] us MG/1.5ML solution pen-injecto r semaglutide Yes [id number] Take U nivers (OZEMPIC) 8 0.25mg ity of 0.25 mg or 00:00: weekly for [place] 0.5 mg(2 00 two weeks, Medic al mg/1.5 mL) then Branch PnIj increase to 0.5mg weekly if tolerate insulin Yes [id number] 30U inject Uni vers degludec 10-10 30-40 ity of (TRESIBA 00:00: Units [place] FLEXTOUCH 00 under the Medic al U-200) 200 skin every Bra nch unit/mL (3 morning. mL) InPn E11.65 flash Yes [id number] 1{kit} 1 Kit Univ ers glucose 10-10 every 14 ity of sensor 00:00: (fourteen) [place] (FREESTYLE 00 days. Medical TERRI 2 E11.65 Branch SENSOR) Kit Insulin Yes [id number] Use as Uni vers [place], 10-10 directed ity of Disposable, 00:00: once daily [place] (BD LOUIE 00 E11.65 Medical 2ND GEN PEN Branch NEEDLE) 32 gauge x 5/32" Ndle semaglutide Yes [id number] Take U nivers (OZEMPIC) 10-10 0.25mg ity of 0.25 mg or 00:00: weekly for [place] 0.5 mg(2 00 two weeks, Medic al mg/1.5 mL) then Branch PnIj increase to 0.5mg weekly if tolerate insulin Yes [id number] 30U inject Uni vers degludec 10-10 30-40 ity of (TRESIBA 00:00: Units [place] FLEXTOUCH 00 under the Medic al U-200) 200 skin every Bra nch unit/mL (3 morning. mL) InPn E11.65 flash Yes [id number] 1{kit} 1 Kit Univ ers glucose - every 14 ity of sensor 00:00: (fourteen) [place] (FREESTYLE 00 days. Medical TERRI 2 E11.65 Branch SENSOR) Kit Insulin Yes [id number] Use as Uni vers [place], 10-10 directed ity of Disposable, 00:00: once daily [place] (BD LOUIE Medical 2ND GEN PEN Branch NEEDLE) 32 gauge x 5/32" Ndle semaglutide Yes [id number] Take U nivers (OZEMPIC) 8 0.25mg ity of 0.25 mg or 00:00: weekly for [place] 0.5 mg(2 00 two weeks, Medic al mg/1.5 mL) then Branch PnIj increase to 0.5mg weekly if tolerate insulin Yes [id number] 30U inject Uni vers degludec 10-10 30-40 ity of (TRESIBA 00:00: Units [place] FLEXTOUCH 00 under the Medic al U-200) 200 skin every Bra nch unit/mL (3 morning. mL) InPn flash Yes [id number] 1{kit} 1 Kit Univ ers glucose 8-31 every 14 ity of sensor 00:00: (fourteen) [place] (FREESTYLE 00 days. Medical TERRI 2 65 Branch SENSOR) Kit Insulin Yes [id number] Use as Uni vers [place], 8- directed ity of Disposable, 00:00: once daily [place] (BD LOUIE Medical 2ND GEN PEN Branch NEEDLE) 32 gauge x 5/32" Ndle semaglutide Yes [id number] Take U nivers (OZEMPIC) 8 0.25mg ity of 0.25 mg or 00:00: weekly [place] 0.5 mg(2 00 two weeks, Medic al mg/1.5 mL) then Branch PnIj increase to 0.5mg weekly if tolerate insulin Yes [id number] 30U inject Uni vers degludec 10-10 30-40 ity of (TRESIBA 00:00: Units [place] FLEXTOUCH 00 under the Medic al U-200) 200 skin every Bra nch unit/mL (3 morning. mL) InPn flash Yes [id number] 1{kit} 1 Kit Univ ers glucose 8-31 every 14 ity of sensor 00:00: (fourteen) [place] (FREESTYLE 00 days. Medical TERRI 2 E1165 Branch SENSOR) Kit Insulin Yes [id number] Use as Uni vers [place], 8- directed ity of Disposable, 00:00: once daily [place] (BD LOUIE E11.65 Medical 2ND GEN PEN Branch NEEDLE) 32 gauge x 5/32" Ndle semaglutide Yes [id number] Take U nivers (OZEMPIC) 10-10 0.25mg ity of 0.25 mg or 00:00: weekly for [place] 0.5 mg(2 00 two weeks, Medic al mg/1.5 mL) then Branch PnIj increase to 0.5mg weekly if tolerate insulin Yes [id number] 30U inject Uni vers degludec 10-10 30-40 ity of (TRESIBA 00:00: Units [place] FLEXTOUCH 00 under the Medic al U-200) 200 skin every Bra nch unit/mL (3 morning. mL) InPn E11.65 flash Yes [id number] 1{kit} 1 Kit Univ ers glucose 10-10 every 14 ity of sensor 00:00: (fourteen) [place] (FREESTYLE 00 days. Medical TERRI 2 E11.65 Branch SENSOR) Kit Insulin Yes [id number] Use as Uni vers [place], 10-10 directed ity of Disposable, 00:00: once daily [place] (BD LOUIE . Medical 2ND GEN PEN Branch NEEDLE) 32 gauge x 5/32" Ndle insulin Yes [id number] 30U inject Uni vers degludec 10-10 30-40 ity of (TRESIBA 00:00: Units [place] FLEXTOUCH 00 under the Medic al U-200) 200 skin every Bra nch unit/mL (3 morning. mL) InPn E11.65 flash Yes [id number] 1{kit} 1 Kit Univ ers glucose 10-10 every 14 ity of sensor 00:00: (fourteen) [place] (FREESTYLE 00 days. Medical TERRI 2 E11.65 Branch SENSOR) Kit Insulin Yes [id number] Use as Uni vers [place], 10-10 directed ity of Disposable, 00:00: once daily [place] (BD LOUIE E11.65 Medical 2ND GEN PEN Branch NEEDLE) 32 gauge x 5/32" Ndle semaglutide 2023- No [id number] Take Univers (OZEMPIC) 10-10 0.25mg ity of 0.25 mg or 00:00: 00:00 weekly for [place] 0.5 mg(2 00 :00 two weeks, Medic al mg/1.5 mL) then Branch PnIj increase to 0.5mg weekly if tolerate flash 2021- No [id number] 1{kit} 1 Kit Uni vers glucose 10-10 every 14 ity of sensor 00:00: 00:00 (fourteen[place] (FREESTYLE 00 :00 days. Medical TERRI 2 E11.65 Branch SENSOR) Kit flash 2021- No [id number] 1{kit} 1 Kit Uni vers glucose 10-10 every 14 ity of sensor 00:00: 00:00 (fourteen[place] (FREESTYLE 00 :00 days. Medical TERRI 2 E11.65 Branch SENSOR) Kit traMADol traMADol 2021- No 1{table QD traMADol HCl 50 MG HCl 50 MG 04-03 t_as_ne HCl 50 MG 00:00: 00:00 eded} 00 :00 sulfamethox 2021-0 Yes [id number] 1{tbl} Take 1 [facility] azole-trime 2-14 tablet by ity of thoprim 00:00: mouth [place] 800-160 mg 00 every 12 Medic al per tablet (twelve) Branc h hours. doxycycline 2021-0 Yes [id number] 100mg Take 1 [facility] hyclate 100 2-14 capsule by it y of mg capsule 00:00: mouth 2 [place] (two) Medical times Branch daily. sulfamethox 2-0 Yes [id number] 1{tbl} Take 1 [facility] azole-trime 2-14 tablet by ity of thoprim 00:00: mouth [place] 800-160 mg 00 every 12 Medic al per tablet (twelve) Branc h hours. doxycycline 2022-0 Yes [id number] 100mg Take 1 [facility] hyclate 100 2-14 capsule by it y of mg capsule 00:00: mouth 2 [place] (two) Medical times Branch daily. sulfamethox 2022-0 Yes [id number] 1{tbl} Take 1 [facility] azole-trime 2-14 tablet by ity of thoprim 00:00: mouth [place] 800-160 mg 00 every 12 Medic al per tablet (twelve) Branc h hours. doxycycline Yes [id number] 100mg Take 1 [facility] hyclate 100 2-14 capsule by it y of mg capsule 00:00: mouth 2 [place] (two) Medical times Branch daily. sulfamethox 2021- No [id number] 1{tbl} Take 1 [facility] azole-trime 2-14 - tablet by it y of thoprim 00:00: 00:00 mouth [place] 800-160 mg 00 :00 every 12 Medic al per tablet (twelve) Branc h hours. doxycycline 2021- No [id number] 100mg Take 1 [facility] hyclate 100 -23 09- capsule by i ty of mg capsule 00:00: 00:00 mouth 2 [place] as 00 :00 (two) Medical times Branch daily. sulfamethox 2021- No [id number] 1{tbl} Take 1 [facility] azole-trime -23 09- tablet by it y of thoprim 00:00: 00:00 mouth [place] 800-160 mg 00 :00 every 12 Medic al per tablet (twelve) Branc h hours. doxycycline 2021- No [id number] 100mg Take 1 [facility] hyclate 100 -10-10 capsule by i ty of mg capsule 00:00: 00:00 mouth 2 [place] 00 :00 (two) Medical times Branch daily. traMADoL 50 2021- No [id number] 50mg Take 1 Uni vers mg tablet 03-26 tablet by ity of 00:00: 05:59 mouth [...] 12/03/20 at 1615, NOEL
[facility] member approving Restricted medication : GREG PEACOCK [...] 02 :00 daily. l armodafiniL 2020- No [id number] 250mg QD Take 1 [facility] (NUVIGIL) 5-17 11-[address] 250 mg 00:00: 05:59 (250 mg [facility] tablet 00 :00 total) by l mouth daily for 180 days. armodafiniL 2020- No [id number] 250mg QD Take 1 [facility] (NUVIGIL) 5-17 [...] tablet 00 each day. amitriptyli 2020- No [id number] 50mg QD Take 2 [facility] ne (ELAVIL) 5-14 11-[address] 25 MG 00:00: 05:59 (50 mg [facility] tablet 00 :00 total) by l mouth nightly for 180 days. amitriptyli 2020- No [id number] 50mg QD Take 2 [facility] (ELAVIL) 5-14 11-[address] 25 MG 00:00: 05:59 (50 mg [facility] tablet 00 :00 total) by l mouth nightly for 180 days. carBAMazepi 2021- No [id number] 200mg Q.5D Take 1 [facility] wy 06-[address] (TEGretoL) 00:00: 04:59 (200 mg Hos ileana 200 mg 00 :00 total) by l tablet mouth 2 (two) times a day. carBAMazepi 2021- No [id number] 200mg Q.5D Take 1 [facility] wy [facility] (TEGretoL) 00:00: 04:59 (200 mg Hos ileana 200 mg 00 :00 total) by l tablet mouth 2 (two) times a day. carBAMazepi 2021- No [id number] 200mg Q.5D Take 1 [facility] wy [facility] (TEGretoL) 00:00: 04:59 (200 mg Hos ileana 200 mg 00 :00 total) by l tablet mouth 2 (two) times a day. carBAMazepi 2021- No [id number] 200mg Q.5D Take 1 [facility] (TEGretoL) 00:00: 04:59 (200 mg Hos ileana 200 mg 00 :00 total) by l tablet mouth 2 (two) times a day. carBAMazepi 2021- No [id number] 200mg Q.5D Take 1 [facility] wy [facility] (TEGretoL) 00:00: 04:59 (200 mg Hos ileana 200 mg 00 :00 total) by l tablet mouth 2 (two) times a day. carBAMazepi 2021- No [id number] 200mg Q.5D Take 1 [facility] (TEGretoL) 00:00: 04:59 (200 mg Hos ileana 200 mg 00 :00 total) by l tablet mouth 2 (two) times a day. carBAMazepi 2021- No [id number] 200mg Q.5D Take 1 [facility] (TEGretoL) 00:00: 04:59 (200 mg Hos ileana 200 mg 00 :00 total) by l tablet mouth 2 (two) times a day. carBAMazepi 2021- No [id number] 200mg Q.5D Take 1 [facility] ne -13 05-[address] (TEGretoL) 00:00: 04:59 (200 mg Hos ileana 200 mg 00 :00 total) by l tablet mouth 2 (two) times a day. carBAMazepi 2021- No [id number] 200mg Q.5D Take 1 [facility] ne 5-13 [...] mouth ity of 50 mg 20:10: at [place] tablet 56 bedtime. Medical Branch Armodafinil Yes 250mg Take 250 [facility] nivers (NUVIGIL) 5-12 mg by ity of 250 mg Tab 20:09: mouth [place] 27 daily. Medical Branch cycloSPORIN Yes 1[drp] Place 1 [facility]ivers E 5-12 Drop in ity of (RESTASIS) 20:09: both eyes [place] 0.05 % 27 every 12 Medical drops (twelve) Branch hours. aspirin 81 Yes 81mg Take 81 mg [facility] mg chewable 5-12 by mouth ity of tablet 20:09: daily. [address] Branch atorvastati Yes 10mg Take 10 mg Univers n 10 mg 5-12 by mouth. ity of tablet 20:09: [address] Branch doxepin 10 Yes 10mg Take 10 mg [facility] mg capsule 5-12 by mouth. ity of 20:09: [address] insulin Yes 160U inject 160 Univ ers glargine 5-12 Units ity of U-300 conc 20:09: under the [place] (TOUJEO 27 skin. Medical SOLOSTAR Branch U-300 INSULIN) 300 unit/mL (1.5 mL) InPn lithium Yes 300mg Take 300 Unive rs carbonate 5-12 mg by ity of 300 mg 20:09: mouth. [place] [address] Medical Branch SERTraline Yes 50mg Take 50 mg U nivers 50 mg 5-12 by mouth. ity of tablet 20:09: [address] Branch celecoxib Yes 200mg Take 200 Uni vers (CELEBREX) 5-12 mg by ity of 200 mg 20:09: mouth 2 [place] capsule (two) Medical times Branch daily. hydroxychlo Yes 200mg Take 200 U nivers roquine 200 5-12 mg by ity of mg tablet 20:09: mouth 2 [place] [address] (two) Medical times Branch daily. cyclobenzap Yes 10mg Take 10 mg Univers rine 10 mg 5-12 by mouth 3 ity of tablet 20:09: (three) [place] [address] times Medical daily. Branch pilocarpine Yes 7.5mg Take 7.5 [facility]ivers 7.5 mg 5-12 mg by ity of tablet 20:09: mouth 3 [place] [address] (three) Medical times Branch daily. Armodafinil Yes 250mg Take 250 U nivers (NUVIGIL) 5-12 mg by ity of 250 mg Tab 20:09: mouth [place] [address] daily. Medical Branch cycloSPORIN Yes 1[drp] Place 1 U nivers E 5-12 Drop in ity of (RESTASIS) 20:09: both eyes [place] 0.05 % 27 every 12 Medical drops (twelve) Branch hours. aspirin 81 Yes 81mg Take 81 mg U nivers mg chewable 5-12 by mouth ity of tablet 20:09: daily. [address] atorvastati Yes 10mg Take 10 mg Univers n 10 mg 5-12 by mouth. ity of tablet 20:09: [address] doxepin 10 Yes 10mg Take 10 mg U nivers mg capsule 5-12 by mouth. ity of 20:09: [address] insulin Yes 160U inject 160 Univ ers glargine 5-12 Units ity of U-300 conc 20:09: under the [place] (TOUJEO 27 skin. Medical SOLOSTAR Branch U-300 INSULIN) 300 unit/mL (1.5 mL) InPn lithium Yes 300mg Take 300 Unive rs carbonate 5-12 mg by ity of 300 mg 20:09: mouth. [address] Branch SERTraline Yes 50mg Take 50 mg U nivers 50 mg 5-12 by mouth. ity of tablet 20:09: [address] celecoxib Yes 200mg Take 200 Uni vers (CELEBREX) 5-12 mg by ity of 200 mg 20:09: mouth 2 [place] [address] (two) Medical times Branch daily. hydroxychlo Yes 200mg Take 200 U nivers roquine 200 5-12 mg by ity of mg tablet 20:09: mouth 2 [place] 27 (two) Medical times Branch daily. cyclobenzap Yes 10mg Take 10 mg Univers rine 10 mg 5-12 by mouth 3 ity of tablet 20:09: (three) [place] [address] times Medical daily. Branch pilocarpine Yes 7.5mg Take 7.5 U nivers 7.5 mg 5-12 mg by ity of tablet 20:09: mouth 3 [place] [address] (three) Medical times Branch daily. Armodafinil Yes 250mg Take 250 U nivers (NUVIGIL) 5-12 mg by ity of 250 mg Tab 20:09: mouth [place] [address] daily. Medical Branch cycloSPORIN Yes 1[drp] Place 1 U nivers E 5-12 Drop in ity of (RESTASIS) 20:09: both eyes [place] 0.05 % 27 every 12 Medical drops (twelve) Branch hours. aspirin 81 Yes 81mg Take 81 mg [facility]ivers mg chewable 5-12 by mouth ity of tablet 20:09: daily. [address] atorvastati Yes 10mg Take 10 mg Univers n 10 mg 5-12 by mouth. ity of tablet 20:09: [address] doxepin 10 Yes 10mg Take 10 mg U nivers mg capsule 5-12 by mouth. ity of 20:09: [address] insulin Yes 160U inject 160 Univ ers glargine 5-12 Units ity of U-300 conc 20:09: under the [place] (TOUJEO 27 skin. Medical SOLOSTAR Branch U-300 INSULIN) 300 unit/mL (1.5 mL) InPn lithium Yes 300mg Take 300 Unive rs carbonate 5-12 mg by ity of 300 mg 20:09: mouth. [place] capsule Medical Branch SERTraline Yes 50mg Take 50 mg U nivers 50 mg 5-12 by mouth. ity of tablet 20:09: [address] celecoxib Yes 200mg Take 200 Uni vers (CELEBREX) 5-12 mg by ity of 200 mg 20:09: mouth 2 [place] capsule (two) Medical times Branch daily. hydroxychlo Yes 200mg Take 200 U nivers roquine 200 5-12 mg by ity of mg tablet 20:09: mouth 2 [place] [address] (two) Medical times [place] daily. cyclobenzap Yes 10mg Take 10 mg Univers rine 10 mg 5-12 by mouth 3 ity of tablet 20:09: (three) [place] [address] times Medical daily. Branch pilocarpine Yes 7.5mg Take 7.5 U nivers 7.5 mg 5-12 mg by ity of tablet 20:09: mouth 3 [place] [address] (three) Medical times [place] daily. Armodafinil Yes 250mg Take 250 U nivers (NUVIGIL) 5-12 mg by ity of 250 mg Tab 20:09: mouth [place] [address] daily. Medical Branch cycloSPORIN Yes 1[drp] Place 1 U nivers E 5-12 Drop in ity of (RESTASIS) 20:09: both eyes [place] 0.05 % 27 every 12 Medical drops (twelve) Branch hours. aspirin 81 Yes 81mg Take 81 mg U nivers mg chewable 5-12 by mouth ity of tablet 20:09: daily. [address] atorvastati Yes 10mg Take 10 mg Univers n 10 mg 5-12 by mouth. ity of tablet 20:09: [address] doxepin 10 Yes 10mg Take 10 mg U nivers mg capsule 5-12 by mouth. ity of 20:09: [address] insulin Yes 160U inject 160 Univ ers glargine 5-12 Units ity of U-300 conc 20:09: under the [place] (TOUJEO 27 skin. Medical SOLOSTAR Branch U-300 INSULIN) 300 unit/mL (1.5 mL) InPn lithium Yes 300mg Take 300 Unive rs carbonate 5-12 mg by ity of 300 mg 20:09: mouth. [address] Branch SERTraline Yes 50mg Take 50 mg U nivers 50 mg 5-12 by mouth. ity of tablet 20:09: [address] celecoxib Yes 200mg Take 200 Uni vers (CELEBREX) 5-12 mg by ity of 200 mg 20:09: mouth 2 [place] [address] (two) Medical times Branch daily. hydroxychlo Yes 200mg Take 200 U nivers roquine 200 5-12 mg by ity of mg tablet 20:09: mouth 2 [place] [address] (two) Medical times Branch daily. cyclobenzap Yes 10mg Take 10 mg Univers rine 10 mg 5-12 by mouth 3 ity of tablet 20:09: (three) [place] [address] times Medical daily. Branch pilocarpine Yes 7.5mg Take 7.5 U nivers 7.5 mg 5-12 mg by ity of tablet 20:09: mouth 3 [place] [address] (three) Medical times Branch daily. Armodafinil Yes 250mg Take 250 U nivers (NUVIGIL) 5-12 mg by ity of 250 mg Tab 20:09: mouth [place] [address] daily. Medical Branch cycloSPORIN Yes 1[drp] Place 1 U nivers E 5-12 Drop in ity of (RESTASIS) 20:09: both eyes [place] 0.05 % 27 every 12 Medical drops (twelve) Branch hours. aspirin 81 Yes 81mg Take 81 mg U nivers mg chewable 5-12 by mouth ity of tablet 20:09: daily. [address] atorvastati Yes 10mg Take 10 mg Univers n 10 mg 5-12 by mouth. ity of tablet 20:09: [address] doxepin 10 Yes 10mg Take 10 mg U nivers mg capsule 5-12 by mouth. ity of 20:09: [address] insulin Yes 160U inject 160 Univ ers glargine 5-12 Units ity of U-300 conc 20:09: under the [place] (TOUJEO 27 skin. Medical SOLOSTAR Branch U-300 INSULIN) 300 unit/mL (1.5 mL) InPn lithium Yes 300mg Take 300 Unive rs carbonate 5-12 mg by ity of 300 mg 20:09: mouth. [address] SERTraline Yes 50mg Take 50 mg U nivers 50 mg 5-12 by mouth. ity of tablet 20:09: [address] celecoxib Yes 200mg Take 200 Uni vers (CELEBREX) 5-12 mg by ity of 200 mg 20:09: mouth 2 [place] [address] (two) Medical times Branch daily. hydroxychlo Yes 200mg Take 200 U nivers roquine 200 5-12 mg by ity of mg tablet 20:09: mouth 2 [place] [address] (two) Medical times Branch daily. cyclobenzap Yes 10mg Take 10 mg Univers rine 10 mg 5-12 by mouth 3 ity of tablet 20:09: (three) [place] [address] times Medical daily. Branch pilocarpine Yes 7.5mg Take 7.5 U nivers 7.5 mg 5-12 mg by ity of tablet 20:09: mouth 3 [place] [address] (three) Medical times [place] daily. Armodafinil Yes 250mg Take 250 U nivers (NUVIGIL) 5-12 mg by ity of 250 mg Tab 20:09: mouth [place] [address] daily. Medical Branch cycloSPORIN Yes 1[drp] Place 1 U nivers E 5-12 Drop in ity of (RESTASIS) 20:09: both eyes [place] 0.05 % 27 every 12 Medical drops (twelve) Branch hours. aspirin 81 Yes 81mg Take 81 mg U nivers mg chewable 5-12 by mouth ity of tablet 20:09: daily. [address] atorvastati Yes 10mg Take 10 mg Univers n 10 mg 5-12 by mouth. ity of tablet 20:09: [address] doxepin 10 Yes 10mg Take 10 mg U nivers mg capsule 5-12 by mouth. ity of 20:09: [address] insulin Yes 160U inject 160 Univ ers glargine 5-12 Units ity of U-300 conc 20:09: under the [place] (TOUJEO 27 skin. Medical SOLOSTAR Branch U-300 INSULIN) 300 unit/mL (1.5 mL) InPn lithium Yes 300mg Take 300 Unive rs carbonate 5-12 mg by ity of 300 mg 20:09: mouth. [place] [address] Medical [place] SERTraline Yes 50mg Take 50 mg U nivers 50 mg 5-12 by mouth. ity of tablet 20:09: [place] 27 Medical Branch celecoxib 2020-0 Yes 200mg Take 200 Uni vers (CELEBREX) 5-12 mg by ity of 200 mg 20:09: mouth 2 [facility] 27 (two) Medical times Branch daily. hydroxychlo 2020-0 Yes 200mg Take 200 U nivers roquine 200 5-12 mg by ity of mg tablet 20:09: mouth 2 [place] (two) Medical times Branch daily. cyclobenzap 2020-0 Yes 10mg Take 10 mg Univers rine 10 mg 5-12 by mouth 3 ity of tablet 20:09: (three) [place] [address] times Medical daily. Branch pilocarpine 2020-0 Yes 7.5mg Take 7.5 U nivers 7.5 mg 5-12 mg by ity of tablet 20:09: mouth 3 [place] [address] (three) Medical times Branch daily. exenatide 2020-0 [...] mouth ity of 50 mg 15:10: at [place] tablet 56 bedtime. Medical Branch Milnacipran 0 [...] [place] tablet 56 bedtime. Medical Branch celecoxib 0 Yes 200mg Take 200 Uni vers (CELEBREX) 5-12 mg by ity of 200 mg 15:09: mouth 2 [place] capsule 27 (two) Medical times Branch daily. hydroxychlo 2020-0 Yes 200mg Take 200 U nivers roquine 200 5-12 mg by ity of mg tablet 15:09: mouth 2 [place] 27 (two) Medical times Branch daily. cyclobenzap 2020-0 Yes 10mg Take 10 mg Univers rine 10 mg 5-12 by mouth 3 ity of tablet 15:09: (three) [place] [address] times Medical daily. Branch pilocarpine Yes 7.5mg Take 7.5 U nivers 7.5 mg 5-12 mg by ity of tablet 15:09: mouth 3 [place] [address] (three) Medical times Branch daily. Armodafinil Yes 250mg Take 250 U nivers (NUVIGIL) 5-12 mg by ity of 250 mg Tab 15:09: mouth [place] [address] daily. Medical Branch cycloSPORIN Yes 1[drp] Place 1 U nivers E 5-12 Drop in ity of (RESTASIS) 15:09: both eyes [place] 0.05 % 27 every 12 Medical drops (twelve) Branch hours. aspirin 81 Yes 81mg Take 81 mg U nivers mg chewable 5-12 by mouth ity of tablet 15:09: daily. [address] atorvastati Yes 10mg Take 10 mg Univers n 10 mg 5-12 by mouth. ity of tablet 15:09: [address] doxepin 10 Yes 10mg Take 10 mg U nivers mg capsule 5-12 by mouth. ity of 15:09: [address] insulin Yes 160U inject 160 Univ ers glargine 5-12 Units ity of U-300 conc 15:09: under the [place] (TOUJEO 27 skin. Medical SOLOSTAR Branch U-300 INSULIN) 300 unit/mL (1.5 mL) InPn lithium Yes 300mg Take 300 Unive rs carbonate 5-12 mg by ity of 300 mg 15:09: mouth. [place] capsule [address] [place] [address] Branch SERTraline Yes 50mg Take 50 mg U nivers 50 mg 5-12 by mouth. ity of tablet 15:09: [address] celecoxib Yes 200mg Take 200 Uni vers (CELEBREX) 5-12 mg by ity of 200 mg 15:09: mouth 2 [place] capsule (two) Medical times Branch daily. hydroxychlo Yes 200mg Take 200 U nivers roquine 200 5-12 mg by ity of mg tablet 15:09: mouth 2 [place] [address] (two) Medical times Branch daily. cyclobenzap Yes 10mg Take 10 mg Univers rine 10 mg 5-12 by mouth 3 ity of tablet 15:09: (three) [place] [address] times [facility] daily. Branch pilocarpine Yes 7.5mg Take 7.5 U nivers 7.5 mg 5-12 mg by ity of tablet 15:09: mouth 3 [place] [address] (three) Medical times Branch daily. Armodafinil Yes 250mg Take 250 U nivers (NUVIGIL) 5-12 mg by ity of 250 mg Tab 15:09: mouth [place] [address] daily. Medical Branch cycloSPORIN Yes 1[drp] Place 1 U nivers E 5-12 Drop in ity of (RESTASIS) 15:09: both eyes [place] 0.05 % 27 every 12 Medical drops (twelve) Branch hours. aspirin 81 Yes 81mg Take 81 mg U nivers mg chewable 5-12 by mouth ity of tablet 15:09: daily. [address] atorvastati Yes 10mg Take 10 mg Univers n 10 mg 5-12 by mouth. ity of tablet 15:09: [address] doxepin 10 Yes 10mg Take 10 mg U nivers mg capsule 5-12 by mouth. ity of 15:09: [address] insulin Yes 160U inject 160 Univ ers glargine 5-12 Units ity of U-300 conc 15:09: under the [place] (TOUJEO 27 skin. Medical SOLOSTAR Branch U-300 INSULIN) 300 unit/mL (1.5 mL) InPn lithium Yes 300mg Take 300 Unive rs carbonate 5-12 mg by ity of 300 mg 15:09: mouth. [place] capsule [address] [place] [address] SERTraline Yes 50mg Take 50 mg U nivers 50 mg 5-12 by mouth. ity of tablet 15:09: [address] celecoxib Yes 200mg Take 200 Uni vers (CELEBREX) 5-12 mg by ity of 200 mg 15:09: mouth 2 [place] capsule (two) Medical times [place] daily. hydroxychlo Yes 200mg Take 200 U nivers roquine 200 5-12 mg by ity of mg tablet 15:09: mouth 2 [place] [address] (two) Medical times Branch daily. cyclobenzap Yes 10mg Take 10 mg Univers rine 10 mg 5-12 by mouth 3 ity of tablet 15:09: (three) [place] [address] times Medical daily. Branch pilocarpine Yes 7.5mg Take 7.5 U nivers 7.5 mg 5-12 mg by ity of tablet 15:09: mouth 3 [place] [address] (three) Medical times Branch daily. Armodafinil Yes 250mg Take 250 U nivers (NUVIGIL) 5-12 mg by ity of 250 mg Tab 15:09: mouth [place] [address] daily. Medical Branch cycloSPORIN Yes 1[drp] Place 1 U nivers E 5-12 Drop in ity of (RESTASIS) 15:09: both eyes [place] 0.05 % 27 every 12 Medical drops (twelve) Branch hours. aspirin 81 Yes 81mg Take 81 mg U nivers mg chewable 5-12 by mouth ity of tablet 15:09: daily. [address] atorvastati Yes 10mg Take 10 mg Univers n 10 mg 5-12 by mouth. ity of tablet 15:09: [address] doxepin 10 Yes 10mg Take 10 mg U nivers mg capsule 5-12 by mouth. ity of 15:09: [address] insulin Yes 160U inject 160 Univ ers glargine 5-12 Units ity of U-300 conc 15:09: under the [place] (TOUJEO 27 skin. Medical SOLOSTAR Branch U-300 INSULIN) 300 unit/mL (1.5 mL) InPn lithium Yes 300mg Take 300 Unive rs carbonate 5-12 mg by ity of 300 mg 15:09: mouth. [place] capsule [address] [place] [address] Branch SERTraline Yes 50mg Take 50 mg U nivers 50 mg 5-12 by mouth. ity of tablet 15:09: [address] celecoxib Yes 200mg Take 200 Uni vers (CELEBREX) 5-12 mg by ity of 200 mg 15:09: mouth 2 [place] capsule (two) Medical times Branch daily. hydroxychlo Yes 200mg Take 200 U nivers roquine 200 5-12 mg by ity of mg tablet 15:09: mouth 2 [place] [address] (two) Medical times Branch daily. cyclobenzap Yes 10mg Take 10 mg Univers rine 10 mg 5-12 by mouth 3 ity of tablet 15:09: (three) [place] [address] times Medical daily. Branch pilocarpine Yes 7.5mg Take 7.5 U nivers 7.5 mg 5-12 mg by ity of tablet 15:09: mouth 3 [place] [address] (three) Medical times Branch daily. Armodafinil Yes 250mg Take 250 U nivers (NUVIGIL) 5-12 mg by ity of 250 mg Tab 15:09: mouth [place] [address] daily. Medical Branch cycloSPORIN Yes 1[drp] Place 1 U nivers E 5-12 Drop in ity of (RESTASIS) 15:09: both eyes [place] 0.05 % 27 every 12 Medical drops (twelve) Branch hours. aspirin 81 Yes 81mg Take 81 mg U nivers mg chewable 5-12 by mouth ity of tablet 15:09: daily. [address] atorvastati Yes 10mg Take 10 mg Univers n 10 mg 5-12 by mouth. ity of tablet 15:09: [address] doxepin 10 Yes 10mg Take 10 mg U nivers mg capsule 5-12 by mouth. ity of 15:09: [address] insulin Yes 160U inject 160 Univ ers glargine 5-12 Units ity of U-300 conc 15:09: under the [place] (TOUJEO 27 skin. Medical SOLOSTAR Branch U-300 INSULIN) 300 unit/mL (1.5 mL) InPn lithium Yes 300mg Take 300 Unive rs carbonate 5-12 mg by ity of 300 mg 15:09: mouth. [address] SERTraline Yes 50mg Take 50 mg U nivers 50 mg 5-12 by mouth. ity of tablet 15:09: [address] celecoxib Yes 200mg Take 200 Uni vers (CELEBREX) 5-12 mg by ity of 200 mg 15:09: mouth 2 [place] capsule (two) Medical times Branch daily. hydroxychlo Yes 200mg Take 200 U nivers roquine 200 5-12 mg by ity of mg tablet 15:09: mouth 2 [place] [address] (two) Medical times Branch daily. cyclobenzap Yes 10mg Take 10 mg Univers rine 10 mg 5-12 by mouth 3 ity of tablet 15:09: (three) [place] [address] times Medical daily. Branch pilocarpine Yes 7.5mg Take 7.5 U nivers 7.5 mg 5-12 mg by ity of tablet 15:09: mouth 3 [place] [address] (three) Medical times Branch daily. Armodafinil Yes 250mg Take 250 U nivers (NUVIGIL) 5-12 mg by ity of 250 mg Tab 15:09: mouth [place] [address] daily. Medical Branch cycloSPORIN Yes 1[drp] Place 1 U nivers E 5-12 Drop in ity of (RESTASIS) 15:09: both eyes [place] 0.05 % 27 every 12 Medical drops (twelve) Branch hours. aspirin 81 Yes 81mg Take 81 mg U nivers mg chewable 5-12 by mouth ity of tablet 15:09: daily. [address] atorvastati Yes 10mg Take 10 mg Univers n 10 mg 5-12 by mouth. ity of tablet 15:09: [address] doxepin 10 Yes 10mg Take 10 mg U nivers mg capsule 5-12 by mouth. ity of 15:09: [address] insulin Yes 160U inject 160 Univ ers glargine 5-12 Units ity of U-300 conc 15:09: under the [place] ([place] 27 skin. Medical SOLOSTAR Branch U-300 INSULIN) 300 unit/mL (1.5 mL) InPn lithium Yes 300mg Take 300 Unive rs carbonate 5-12 mg by ity of 300 mg 15:09: mouth. [place] [address] Medical Branch SERTraline Yes 50mg Take 50 mg U nivers 50 mg 5-12 by mouth. ity of tablet 15:09: [place] 27 Medical Branch celecoxib Yes 200mg Take 200 Uni vers (CELEBREX) 5-12 mg by ity of 200 mg 15:09: mouth 2 [place] [address] (two) Medical times Branch daily. hydroxychlo Yes 200mg Take 200 U nivers roquine 200 5-12 mg by ity of mg tablet 15:09: mouth 2 [place] [address] (two) Medical times Branch daily. cyclobenzap Yes 10mg Take 10 mg Univers rine 10 mg 5-12 by mouth 3 ity of tablet 15:09: (three) [place] [address] times Medical daily. Branch pilocarpine Yes 7.5mg Take 7.5 U nivers 7.5 mg 5-12 mg by ity of tablet 15:09: mouth 3 [place] [address] (three) Medical times Branch daily. Armodafinil Yes 250mg Take 250 U nivers (NUVIGIL) 5-12 mg by ity of 250 mg Tab 15:09: mouth [place] [address] daily. Medical Branch cycloSPORIN Yes 1[drp] Place 1 U nivers E 5-12 Drop in ity of (RESTASIS) 15:09: both eyes [place] 0.05 % 27 every 12 Medical drops (twelve) Branch hours. aspirin 81 Yes 81mg Take 81 mg U nivers mg chewable 5-12 by mouth ity of tablet 15:09: daily. [address] Branch atorvastati Yes 10mg Take 10 mg Univers n 10 mg 5-12 by mouth. ity of tablet 15:09: [address] doxepin 10 Yes 10mg Take 10 mg U nivers mg capsule 5-12 by mouth. ity of 15:09: [address] insulin Yes 160U inject 160 Univ ers glargine 5-12 Units ity of U-300 conc 15:09: under the [place] ([place] 27 skin. Medical SOLOSTAR Branch U-300 INSULIN) 300 unit/mL (1.5 mL) InPn lithium Yes 300mg Take 300 Unive rs carbonate 5-12 mg by ity of 300 mg 15:09: mouth. [place] [address] Medical Branch SERTraline Yes 50mg Take 50 mg U nivers 50 mg 5-12 by mouth. ity of tablet 15:09: [address] Branch celecoxib Yes 200mg Take 200 Uni vers (CELEBREX) 5-12 mg by ity of 200 mg 15:09: mouth 2 [place] [address] (two) Medical times Branch daily. hydroxychlo Yes 200mg Take 200 U nivers roquine 200 5-12 mg by ity of mg tablet 15:09: mouth 2 [place] [address] (two) Medical times Branch daily. cyclobenzap Yes 10mg Take 10 mg Univers rine 10 mg 5-12 by mouth 3 ity of tablet 15:09: (three) [place] [address] times Medical daily. Branch pilocarpine Yes 7.5mg Take 7.5 U nivers 7.5 mg 5-12 mg by ity of tablet 15:09: mouth 3 [place] [address] (three) Medical times [place] daily. Armodafinil Yes 250mg Take 250 U nivers (NUVIGIL) 5-12 mg by ity of 250 mg Tab 15:09: mouth [place] [address] daily. Medical Branch cycloSPORIN Yes 1[drp] Place 1 U nivers E 5-12 Drop in ity of (RESTASIS) 15:09: both eyes [place] 0.05 % 27 every 12 Medical drops (twelve) Branch hours. aspirin 81 Yes 81mg Take 81 mg U nivers mg chewable 5-12 by mouth ity of tablet 15:09: daily. [address] atorvastati Yes 10mg Take 10 mg Univers n 10 mg 5-12 by mouth. ity of tablet 15:09: [address] Branch doxepin 10 Yes 10mg Take 10 mg U nivers mg capsule 5-12 by mouth. ity of 15:09: [address] insulin Yes 160U inject 160 Univ ers glargine 5-12 Units ity of U-300 conc 15:09: under the [place] ([place] 27 skin. Medical SOLOSTAR Branch U-300 INSULIN) 300 unit/mL (1.5 mL) InPn lithium Yes 300mg Take 300 Unive rs carbonate 5-12 mg by ity of 300 mg 15:09: mouth. [place] [address] Medical Branch SERTraline Yes 50mg Take 50 mg U nivers 50 mg 5-12 by mouth. ity of tablet 15:09: [address] celecoxib Yes 200mg Take 200 Uni vers (CELEBREX) 5-12 mg by ity of 200 mg 15:09: mouth 2 [place] [address] (two) Medical times Branch daily. hydroxychlo Yes 200mg Take 200 U nivers roquine 200 5-12 mg by ity of mg tablet 15:09: mouth 2 [place] [address] (two) Medical times [place] daily. cyclobenzap Yes 10mg Take 10 mg Univers rine 10 mg 5-12 by mouth 3 ity of tablet 15:09: (three) [address] daily. Branch pilocarpine Yes 7.5mg Take 7.5 U nivers 7.5 mg 5-12 mg by ity of tablet 15:09: mouth 3 [place] [address] (three) Medical times [place] daily. Armodafinil Yes 250mg Take 250 U nivers (NUVIGIL) 5-12 mg by ity of 250 mg Tab 15:09: mouth [place] [address] daily. Medical Branch cycloSPORIN Yes 1[drp] Place 1 U nivers E 5-12 Drop in ity of (RESTASIS) 15:09: [place] eyes [place] 0.05 % 27 every 12 Medical drops (twelve) Branch hours. aspirin 81 Yes 81mg Take 81 mg U nivers mg chewable 5-12 by mouth ity of tablet 15:09: daily. [address] atorvastati Yes 10mg Take 10 mg Univers n 10 mg 5-12 by mouth. ity of tablet 15:09: [address] Branch doxepin 10 Yes 10mg Take 10 mg U nivers mg capsule 5-12 by mouth. ity of 15:09: [address] insulin Yes 160U inject 160 Univ ers glargine 5-12 Units ity of U-300 conc 15:09: under the [place] ([place] 27 skin. Medical SOLOSTAR Branch U-300 INSULIN) 300 unit/mL (1.5 mL) InPn lithium 2021-0 Yes 300mg Take 300 Unive rs carbonate 5-12 mg by ity of 300 mg 15:09: mouth. [place] capsule Medical Branch SERTraline Yes 50mg Take 50 mg U nivers 50 mg 5-12 by mouth. ity of tablet 15:09: [address] Branch celecoxib Yes 200mg Take 200 Uni vers (CELEBREX) 5-12 mg by ity of 200 mg 15:09: mouth 2 [place] [address] (two) Medical times Branch daily. hydroxychlo Yes 200mg Take 200 U nivers roquine 200 5-12 mg by ity of mg tablet 15:09: mouth 2 [place] [address] (two) Medical times [place] daily. cyclobenzap Yes 10mg Take 10 mg Univers rine 10 mg 5-12 by mouth 3 ity of tablet 15:09: (three) [place] [address] times [facility] daily. Branch pilocarpine Yes 7.5mg Take 7.5 U nivers 7.5 mg 5-12 mg by ity of tablet 15:09: mouth 3 [place] [address] (three) Medical times [place] daily. Armodafinil Yes 250mg Take 250 U nivers (NUVIGIL) 5-12 mg by ity of 250 mg Tab 15:09: mouth [place] [address] daily. Medical Branch cycloSPORIN Yes 1[drp] Place 1 U nivers E 5-12 Drop in ity of (RESTASIS) 15:09: [place] eyes [place] 0.05 % 27 every 12 Medical drops (twelve) Branch hours. aspirin 81 Yes 81mg Take 81 mg U nivers mg chewable 5-12 by mouth ity of tablet 15:09: daily. [address] Branch atorvastati Yes 10mg Take 10 mg Univers n 10 mg 5-12 by mouth. ity of tablet 15:09: [address] doxepin 10 Yes 10mg Take 10 mg U nivers mg capsule 5-12 by mouth. ity of 15:09: [address] insulin Yes 160U inject 160 Univ ers glargine 5-12 Units ity of U-300 conc 15:09: under the [place] ([place] 27 skin. Medical SOLOSTAR Branch U-300 INSULIN) 300 unit/mL (1.5 mL) InPn lithium Yes 300mg Take 300 Unive rs carbonate 5-12 mg by ity of 300 mg 15:09: mouth. [address] Branch SERTraline Yes 50mg Take 50 mg U nivers 50 mg 5-12 by mouth. ity of tablet 15:09: [address] celecoxib Yes 200mg Take 200 Uni vers (CELEBREX) 5-12 mg by ity of 200 mg 15:09: mouth 2 [place] [address] (two) Medical times Branch daily. hydroxychlo Yes 200mg Take 200 U nivers roquine 200 5-12 mg by ity of mg tablet 15:09: mouth 2 [place] [address] (two) Medical times [place] daily. cyclobenzap Yes 10mg Take 10 mg Univers rine 10 mg 5-12 by mouth 3 ity of tablet 15:09: (three) [address] daily. Branch pilocarpine Yes 7.5mg Take 7.5 U nivers 7.5 mg 5-12 mg by ity of tablet 15:09: mouth 3 [place] [address] (three) Medical times [place] daily. Armodafinil Yes 250mg Take 250 U nivers (NUVIGIL) 5-12 mg by ity of 250 mg Tab 15:09: mouth [place] [address] daily. Medical Branch cycloSPORIN Yes 1[drp] Place 1 U nivers E 5-12 Drop in ity of (RESTASIS) 15:09: both eyes [place] 0.05 % 27 every 12 Medical drops (twelve) Branch hours. aspirin 81 Yes 81mg Take 81 mg U nivers mg chewable 5-12 by mouth ity of tablet 15:09: daily. [address] atorvastati Yes 10mg Take 10 mg Univers n 10 mg 5-12 by mouth. ity of tablet 15:09: [address] doxepin 10 Yes 10mg Take 10 mg U nivers mg capsule 5-12 by mouth. ity of 15:09: [address] insulin Yes 160U inject 160 Univ ers glargine 5-12 Units ity of U-300 conc 15:09: under the [place] ([place] 27 skin. Medical SOLOSTAR Branch U-300 INSULIN) 300 unit/mL (1.5 mL) InPn lithium Yes 300mg Take 300 Unive rs carbonate 5-12 mg by ity of 300 mg 15:09: mouth. [address] SERTraline Yes 50mg Take 50 mg U nivers 50 mg 5-12 by mouth. ity of tablet 15:09: [address] atorvastati Yes 10mg Take 10 mg Univers n 10 mg 5-12 by mouth. ity of tablet 15:09: [address] atorvastati Yes 10mg Take 10 mg Univers n 10 mg 5-12 by mouth. ity of tablet 15:09: [address] atorvastati Yes 10mg Take 10 mg Univers n 10 mg 5-12 by mouth. ity of tablet 15:09: [address] atorvastati Yes 10mg Take 10 mg Univers n 10 mg 5-12 by mouth. ity of tablet 15:09: [address] atorvastati Yes 10mg Take 10 mg Univers n 10 mg 5-12 by mouth. ity of tablet 15:09: [address] atorvastati Yes 10mg Take 10 mg Univers n 10 mg 5-12 by mouth. ity of tablet 15:09: [address] exenatide Yes 2mg inject 2 Univ [...] 40 Medical injection Branch oxybutynin 1-0 Yes [id number] 5mg Take 1 U nivers XL 5 mg 24 5-12 tablet by ity of hr tablet 00:00: mouth [place] 00 daily. Medical Branch oxybutynin 1-0 Yes [id number] 5mg Take 1 U nivers XL 5 mg 24 5-12 tablet by ity of hr tablet 00:00: mouth [place] 00 daily. Medical Branch oxybutynin 1-0 Yes [id number] 5mg Take 1 U nivers XL 5 mg 24 5-12 tablet by ity of hr tablet 00:00: mouth [place] 00 daily. Medical Branch oxybutynin 1-0 Yes [id number] 5mg Take 1 U nivers XL 5 mg 24 5-12 tablet by ity of hr tablet 00:00: mouth [place] 00 daily. Medical Branch oxybutynin 1-0 Yes [id number] 5mg Take 1 U nivers XL 5 mg 24 5-12 tablet by ity of hr tablet 00:00: mouth [place] 00 daily. Medical Branch oxybutynin 2020-0 Yes [id number] 5mg Take 1 U nivers XL 5 mg 24 5-12 tablet by ity of hr tablet 00:00: mouth [place] 00 daily. Medical Branch oxybutynin 2020-0 Yes [id number] 5mg Take 1 U nivers XL 5 mg 24 5-12 tablet by ity of hr tablet 00:00: mouth [place] 00 daily. Medical Branch oxybutynin 2020-0 Yes [id number] 5mg Take 1 U nivers XL 5 mg 24 5-12 tablet by ity of hr tablet 00:00: mouth [place] 00 daily. Medical Branch oxybutynin 2020-0 Yes [id number] 5mg Take 1 U nivers XL 5 mg 24 5-12 tablet by ity of hr tablet 00:00: mouth [place] 00 daily. Medical Branch oxybutynin 2020-0 Yes [id number] 5mg Take 1 U nivers XL 5 mg 24 5-12 tablet by ity of hr tablet 00:00: mouth [place] 00 daily. Medical Branch oxybutynin 2020-0 Yes [id number] 5mg Take 1 U nivers XL 5 mg 24 5-12 tablet by ity of hr tablet 00:00: mouth [place] 00 daily. Medical Branch oxybutynin 2020-0 Yes [id number] 5mg Take 1 U nivers XL 5 mg 24 5-12 tablet by ity of hr tablet 00:00: mouth [place] 00 daily. Medical Branch oxybutynin 2020-0 Yes [id number] 5mg Take 1 U nivers XL 5 mg 24 5-12 tablet by ity of hr tablet 00:00: mouth [place] 00 daily. Medical Branch oxybutynin 2020-0 Yes [id number] 5mg Take 1 U nivers XL 5 mg 24 5-12 tablet by ity of hr tablet 00:00: mouth [place] 00 daily. Medical Branch oxybutynin 2020-0 Yes [id number] 5mg Take 1 U nivers XL 5 mg 24 5-12 tablet by ity of hr tablet 00:00: mouth [place] 00 daily. Medical Branch oxybutynin 2020-0 Yes [id number] 5mg Take 1 U nivers XL 5 [...] tablet 00:00: 00 oxybutynin 2020-0 2- No [id number] 5mg Take 1 Univers XL 5 mg 24 06-21 tablet by ity of hr tablet 00:00: 00:00 mouth [place] 00 :00 daily. [facility] oxybutynin 2020-0 2- No [id number] 5mg Take 1 Univers XL 5 mg 24 06-21 tablet by ity of hr tablet 00:00: 00:00 mouth [place] 00 :00 daily. [facility] metformin 2020-0 Yes Univers ER 500 mg 5-10 ity of 24 hr 00:00: [place] tablet 00 [facility] metformin 1-0 Yes Univers ER 500 mg 5-10 ity of 24 hr 00:00: [place] tablet 00 [facility] metformin 2021-0 Yes Univers ER 500 mg 5-10 ity of 24 hr 00:00: [place] tablet 00 [facility] metformin 2021-0 Yes Univers ER 500 mg 5-10 ity of 24 hr 00:00: [place] tablet 00 [facility] metformin 2021-0 Yes Univers ER 500 mg 5-10 ity of 24 hr 00:00: [place] tablet 00 [facility] metformin 2021-0 Yes Univers ER 500 mg 5-10 ity of 24 hr 00:00: [place] tablet 00 [facility] metformin 2021-0 Yes Univers ER 500 mg 5-10 ity of 24 hr 00:00: [place] tablet 00 [facility] metformin 2021-0 Yes Univers ER 500 mg 5-10 ity of 24 hr 00:00: [place] tablet 00 [facility] metformin 2021-0 Yes Univers ER 500 mg [...] 300 mg 4-23 ity of capsule 00:00: [place] 00 Medical Branch gabapentin 2021-0 Yes Univers 300 mg 4-23 ity of capsule 00:00: [place] Medical Branch gabapentin 2021-0 Yes Univers 300 mg 4-23 ity of capsule 00:00: [place] 00 Medical Branch gabapentin 2021-0 Yes Univers 300 mg 4-23 ity of capsule 00:00: [place] 00 Medical Branch gabapentin 2021-0 Yes Univers 300 mg 4-23 ity of capsule 00:00: [place] Medical Branch gabapentin 2021-0 Yes Univers 300 mg 4-23 ity of capsule 00:00: [place] 00 Medical Branch gabapentin 2021-0 Yes Univers 300 mg 4-23 ity of capsule 00:00: [place] 00 Medical Branch gabapentin 2021-0 Yes Univers 300 mg 4-23 ity of capsule 00:00: [place] [address] Medical Branch gabapentin 2021-0 Yes Univers 300 mg 4-23 ity of capsule 00:00: [place] [address] Medical Branch gabapentin 2021-0 Yes Univers 300 mg 4-23 ity of capsule 00:00: [place] 00 Medical Branch gabapentin 2021-0 Yes Univers 300 mg 4-23 ity of capsule 00:00: [place] 00 Medical Branch gabapentin 2021-0 Yes Univers 300 mg 4-23 ity of capsule 00:00: [place] 00 Medical Branch gabapentin 2021-0 Yes Univers 300 mg 4-23 ity of capsule 00:00: [place] 00 Medical Branch gabapentin 2021-0 Yes Univers 300 mg 4-23 ity of capsule 00:00: [place] 00 Medical Branch gabapentin 2021-0 Yes Univers 300 mg 4-23 ity of capsule 00:00: [place] 00 Medical Branch gabapentin 2021-0 Yes Univers 300 mg 4-23 ity of capsule 00:00: [place] 00 Medical Branch gabapentin 2021-0 2022- No Univer s 300 mg 4-23 08-31 ity of capsule 00:00: 00:00 [place] 00 :00 Medical Branch gabapentin 2021-0 2022- No Univer s 300 mg 4-23 08-31 ity of capsule 00:00: 00:00 [place] 00 :00 Medical Branch lisinopriL- 2021-0 Yes Univer s hydrochloro 4-07 ity of thiazide 00:00: [place] 20-12.5 mg 00 Medical per tablet Branch lisinopriL- 2020-0 Yes Univer s hydrochloro 4-07 ity of thiazide 00:00: [place] 20-12.5 mg 00 Medical per tablet Branch lisinopriL- 2020-0 Yes Univer s hydrochloro 4-07 ity of thiazide 00:00: [place] 20-12.5 mg 00 Medical per tablet Branch lisinopriL- 202-0 Yes Univer s hydrochloro 4-07 ity of thiazide 00:00: [place] 20-12.5 mg 00 Medical per tablet Branch lisinopriL- 202-0 Yes Univer s hydrochloro 4-07 ity of thiazide 00:00: [place] 20-12.5 mg 00 Medical per tablet Branch lisinopriL- 2020-0 Yes Univer s hydrochloro 4-07 ity of thiazide 00:00: [place] 20-12.5 mg 00 Medical per tablet Branch lisinopriL- 2020-0 Yes Univer s hydrochloro 4-07 ity of thiazide 00:00: [place] 20-12.5 mg 00 Medical per tablet Branch lisinopriL- 2021-0 Yes [facility] s hydrochloro 4-07 ity of thiazide 00:00: [place] 20-12.5 mg 00 Medical per tablet Branch lisinopriL- Yes [facility] s hydrochloro 4-07 ity of thiazide 00:00: [place] 20-12.5 mg 00 Medical per tablet Branch lisinopriL- 0 Yes [facility] s hydrochloro 4-07 ity of thiazide 00:00: [place] 20-12.5 mg 00 Medical per tablet Branch lisinopriL- Yes [facility] s hydrochloro 4-07 ity of thiazide 00:00: [place] 20-12.5 mg 00 Medical per tablet Branch lisinopriL- Yes [facility] s hydrochloro 4-07 ity of thiazide 00:00: [place] 20-12.5 mg 00 Medical per tablet Branch lisinopriL- Yes [facility] s hydrochloro 4-07 ity of thiazide 00:00: [place] 20-12.5 mg 00 Medical per tablet Branch lisinopriL- Yes [facility] s hydrochloro 4-07 ity of thiazide 00:00: [place] 20-12.5 mg 00 Medical per tablet Branch lisinopriL- Yes [facility] s hydrochloro 4-07 ity of thiazide 00:00: [place] 20-12.5 mg 00 Medical per tablet Branch lisinopriL- Yes [facility] s hydrochloro 4-07 ity of thiazide 00:00: [place] 20-12.5 mg 00 Medical per tablet Branch lisinopriL- 0 Yes [facility] s hydrochloro 4-07 ity of thiazide 00:00: [place] 20-12.5 mg 00 Medical per tablet Branch lisinopriL- 0 Yes [facility] s hydrochloro 4-07 ity of thiazide 00:00: [place] 20-12.5 mg 00 Medical per tablet Branch lisinopriL- 0 Yes [facility] s hydrochloro 4-07 ity of thiazide 00:00: [place] 20-12.5 mg 00 Medical per tablet Branch lisinopriL- 0 Yes [facility] hydrochloro 4-07 ity of thiazide 00:00: [place] 20-12.5 mg 00 Medical per tablet Branch lisinopriL- Yes [facility] s hydrochloro 4-07 ity of thiazide 00:00: [place] 20-12.5 mg 00 Medical per tablet Branch [facility] thiazide 00:00: [place] 20-12.5 mg 00 Medical per tablet Branch thiamine 2020-2020- No 50mg QD Take 0.5 Meth gwen mononitrate 27 04-[address] , vit B1, 00:00: 04:59 (50 mg Hospi ta (B-1) 100 00 :00 total) by l mg tablet mouth daily for 30 days. cyclobenzap 2020- No 10mg Q.[id number] Take 10 mg [facility] rine -26 03- [id number] by mouth 3 st (FLEXERIL) 21:43: 00:00 [...] a l tablet day. PILOCARPINE Yes 7.5mg [id number] Take 7.5 [facility] HCL ORAL 3-[id number] 21:43: 3D mouth 3 [...] 19 l lithium 300 2020-0 Yes 300mg Q.[id number] Take 300 [facility] MG capsule - [id number] mg by st 21:43: 3D mouth 3 Hospita 19 (three) l times a day with meals. metFORMIN 2020-0 Yes 1000mg Q.5D Take 1,000 [facility] XR 3-[address] (GLUCOPHAGE 21:43: mouth 2 Hos ileana -XR) 500 mg 19 (two) l 24 hr times a tablet day with meals. sertraline 2020-0 Yes 50mg QD Take 50 mg M ethodi (ZOLOFT) 50 -[address] MG tablet 21:43: daily. Hospit a 19 l golimumab 2020-0 Yes Q30D Infuse Method i (SIMPONI - into a st ARIA IV) 21:43: venous Hospita 19 catheter l every 30 (thirty) days. insulin 2020-0 Yes 22U Q.[id number] Inject 22 [facility] lispro -[id number] (HUMALOG 21:43: 3D under the [...] a l tablet day. PILOCARPINE Yes 7.5mg Q.[id number] Take 7.5 [facility] HCL ORAL 3-[id number] 16:43: 3D mouth 3 [...] 19 l lithium 300 0 Yes 300mg Q.[id number] Take 300 [facility] MG capsule -[id number] 16:43: 3D mouth 3 [...] 30 (thirty) days. insulin 0 Yes 22U Q.[id number] Inject 22 [facility]i lispro 3-[id number] (HUMALOG 16:43: 3D under the [...] QD Take 40 mg [facility] (ZOCOR) 40 05-04- by mouth st MG tablet 21:42: 00:00 nightly. Hos ileana 25 :00 l milnacipran 2020- No 50mg Q.5D Take 50 mg [facility] (SAVELLA) 05-04-[address] 50 mg 21:41: 00:00 (two) Hospita tablet 54 :00 times a l day. METHOTREXAT No .7mL Q7D Inject 0.7 Methodi E SODIUM 05-04-[address] INJ 21:41: 00:00 directed Hospita 41 :00 once a l week at 4pm. insulin 2020- No 120U QD Inject 120 Met ora degludec 05-04-[address] (TRESIBA 21:41: 00:00 under the Hos ileana FLEXTOUCH 18 :00 skin l U-100) 100 daily. unit/mL (3 mL) insulin pen folic acid 2020- No 2mg QD Take 2 mg M ethodi (FOLVITE) 1 05-04-[address] MG tablet 21:40: 00:00 [...] pirit one) one) 00:00: - [facility] Kenalog Kenalog 2020-0 No 40mg Common (Triamcinol (Triamcinol 9-22 S pirit one) one) 00:00: - [facility] Kenalog Kenalog 2020-0 No 40mg Common (Triamcinol (Triamcinol 9-22 S pirit one) one) 00:00: - [facility] Kenalog Kenalog 2020-0 No 40mg Common (Triamcinol (Triamcinol 9-22 S pirit one) one) 00:00: - [facility] Kenalog Kenalog 2020-0 No 40mg Common (Triamcinol (Triamcinol 9-22 S pirit one) one) 00:00: - [facility] Kenalog Kenalog 2020-0 No 40mg Common (Triamcinol (Triamcinol 9-22 S pirit one) one) 00:00: - [facility] Kenalog Kenalog 2020-0 No 40mg Common (Triamcinol (Triamcinol 9-22 S pirit one) one) 00:00: - [facility] Kenalog Kenalog 2020-0 No 40mg Common (Triamcinol (Triamcinol 9-22 S pirit one) one) 00:00: - [facility] Kenalog Kenalog 2020-0 No 40mg Common (Triamcinol (Triamcinol 9-22 S pirit one) one) 00:00: - [facility] Kenalog Kenalog 2020-0 No 40mg Common (Triamcinol (Triamcinol 9-22 S pirit one) one) 00:00: - [facility] Kenalog Kenalog 2020-0 No 40mg Common (Triamcinol (Triamcinol 9-22 S pirit one) one) 00:00: - [facility] Kenalog Kenalog 2020-0 No 40mg Common (Triamcinol (Triamcinol 9-22 S pirit one) one) 00:00: - [facility] Kenalog Kenalog 2020-0 No 40mg Common (Triamcinol (Triamcinol 9-22 S pirit one) one) 00:00: - [facility] Kenalog Kenalog 2020-0 No 40mg Common (Triamcinol (Triamcinol 9-22 S pirit one) one) 00:00: - [facility] Kenalog Kenalog 2020-0 No 40mg Common (Triamcinol (Triamcinol 9-22 S pirit one) one) 00:00: - [facility] 00 [facility] Amoxicillin Amoxicillin 2020-0 2020- No Luciano 1 capsule Common 10-26 [facility] 00:00: 00:00 - [facility] :00 [facility] atorvastati 2020-0 Yes 1 tablet [place] [facility] (Lipitor) 8-20 [facility] 10 MG 00:00: tablet 00 atorvastati 2020-0 Yes 1 tablet [place] [facility] (Lipitor) 8-20 [facility] 10 MG 00:00: tablet 00 Furosemide Furosemide 2018-0 Yes Luciano 0.5 tablet Common 5- [facility] 00:00: - [facility] 00 [facility] Furosemide Furosemide 2018-0 No .5{tabl QD Furosemide [...] Spirit hen hen 00:00: - [facility] 00 [facility] HYDROcodone HYDROcodone 2017-02 No 1{table BID [...] MG MG 00 5-325 MG Tolterodine Tolterodine 2017-0 Yes SHEFALI 1 PO QD [facility] Tartrate ER Tartrate ER 4-30 MICHAEL Trinidadi 4 MG Oral 4 MG Oral 00:00: [...] No 1{tbl} Take 1 U nivers azole-trime 09-09 tablet by it y of thoprim 00:00: 00:00 mouth [place] 800-160 mg 00 :00 every 12 Medic al per tablet (twelve) Branc h hours. simvastatin Yes 40mg Take 40 mg Univers 40 mg 6-15 by mouth ity of tablet 18:18: at [place] [address] bedtime. Medical Branch traZODONE Yes 100mg Take Univers 100 mg 6-15 100-200 mg ity of tablet 18:18: by mouth [place] [address] at bedtime Medical as needed Branch for Insomnia. ARIPiprazol Yes 20mg Take 20 mg Univers e (ABILIFY) 6-15 by mouth ity of 20 mg 18:18: at [place] [address] bedtime. Medical Branch suvorexant Yes 20mg Take 20 mg U nivers (BELSOMRA) 6-15 by mouth ity o f 20 mg Tab 18:18: at [place] [address] bedtime. Medical Branch prednisoLON Yes 1[drp] 1 Drop Un emanuel E acetate 1 6-15 every 2 ity o f % 18:18: (two) [place] ophthalmic 54 hours as Medic al suspension needed for Bra nch drops Itching. foLIC acid Yes 2mg Take 2 mg Un emanuel 1 mg tablet 6-15 by mouth ity of 18:18: daily. [place] [address] Medical Branch simvastatin 2017 Yes 40mg Take 40 mg Univers 40 mg 6-15 by mouth ity of tablet 18:18: at [place] [address] bedtime. Medical Branch traZODONE 2017 Yes 100mg Take Univers 100 mg 6-15 100-200 mg ity of tablet 18:18: by mouth [place] [address] at bedtime Medical as needed Branch for Insomnia. ARIPiprazol Yes 20mg Take 20 mg Univers e (ABILIFY) 6-15 by mouth ity of 20 mg 18:18: at [place] [address] bedtime. Medical Branch suvorexant Yes 20mg Take 20 mg U nivers (BELSOMRA) 6-15 by mouth ity o f 20 mg Tab 18:18: at [place] [address] bedtime. Medical Branch prednisoLON 2017-0 Yes 1[drp] 1 Drop Un emanuel E acetate 1 6-15 every 2 ity o f % 18:18: (two) [place] ophthalmic 54 hours as Medic al suspension needed for Bra nch drops Itching. foLIC acid [id number] Yes 2mg Take 2 mg Un emanuel 1 mg tablet 6-15 by mouth ity of 18:18: daily. [place] [address] Medical Branch simvastatin 2017-0 Yes 40mg Take 40 mg Univers 40 mg 6-15 by mouth ity of tablet 18:18: at [place] [address] bedtime. Medical Branch traZODONE [id number] Yes 100mg Take Univers 100 mg 6-15 100-200 mg ity of tablet 18:18: by mouth [place] [address] at bedtime Medical as needed Branch for Insomnia. ARIPiprazol Yes 20mg Take 20 mg Univers e (ABILIFY) 6-15 by mouth ity of 20 mg 18:18: at [place] [address] bedtime. [facility] suvorexant 0 Yes 20mg Take 20 mg U nivers (BELSOMRA) 6-15 by mouth ity o f 20 mg Tab 18:18: at [place] [address] bedtime. [facility] prednisoLON 20170 Yes 1[drp] 1 Drop Un emanuel E acetate 1 6-15 every 2 ity o f % 18:18: (two) [place] [facility] 54 hours as Medic al suspension needed for Bra nch drops Itching. foLIC acid 20170 Yes 2mg Take 2 mg Un emanuel 1 mg tablet 6-15 by mouth ity of 18:18: daily. [place] [address] [facility] Branch simvastatin 2017-0 Yes 40mg Take 40 mg [facility] 40 mg 6-15 by mouth ity of tablet 18:18: at [place] [address] bedtime. [facility] traZODONE 20170 Yes 100mg Take [facility] 100 mg 6-15 100-200 mg ity of tablet 18:18: by mouth [place] [address] at bedtime Medical as needed Branch for Insomnia. ARIPiprazol 20170 Yes 20mg Take 20 mg [facility] e (ABILIFY) 6-15 by mouth ity of 20 mg 18:18: at [place] [address] bedtime. [facility] suvorexant 20170 Yes 20mg Take 20 mg U nivers (BELSOMRA) 6-15 by mouth ity o f 20 mg Tab 18:18: at [place] [address] bedtime. [facility] prednisoLON 20170 Yes 1[drp] 1 Drop Un emanuel E acetate 1 6-15 every 2 ity o f % 18:18: (two) [place] [facility] 54 hours as Medic al suspension needed for Bra nch drops Itching. foLIC acid 2017 Yes 2mg Take 2 mg Un emanuel 1 mg tablet 6-15 by mouth ity of 18:18: daily. [place] [address] [facility] Branch simvastatin 20170 Yes 40mg Take 40 mg [facility] 40 mg 6-15 by mouth ity of tablet 18:18: at [place] [address] bedtime. [facility] traZODONE 2017 Yes 100mg Take [facility] 100 mg 6-15 100-200 mg ity of tablet 18:18: by mouth [place] [address] at bedtime Medical as needed Branch for Insomnia. ARIPiprazol Yes 20mg Take 20 mg [facility] e (ABILIFY) 6-15 by mouth ity of 20 mg 18:18: at [place] [address] bedtime. [facility] suvorexant Yes 20mg Take 20 mg U nivers (BELSOMRA) 6-15 by mouth ity o f 20 mg Tab 18:18: at [place] [address] bedtime. [facility] prednisoLON 20170 Yes 1[drp] 1 Drop Un emanuel E acetate 1 6-15 every 2 ity o f % 18:18: (two) [place] [facility] 54 hours as Medic al suspension needed for Bra nch drops Itching. foLIC acid Yes 2mg Take 2 mg Un emanuel 1 mg tablet 6-15 by mouth ity of 18:18: daily. [place] [address] [facility] Branch simvastatin 20170 Yes 40mg Take 40 mg [facility] 40 mg 6-15 by mouth ity of tablet 18:18: at [place] [address] bedtime. [facility] traZODONE 20170 Yes 100mg Take [facility] 100 mg 6-15 100-200 mg ity of tablet 18:18: by mouth [place] [address] at bedtime Medical as needed Branch for Insomnia. ARIPiprazol Yes 20mg Take 20 mg [facility] e (ABILIFY) 6-15 by mouth ity of 20 mg 18:18: at [place] [address] bedtime. [facility] suvorexant 2017-0 Yes 20mg Take 20 mg U nivers (BELSOMRA) 6-15 by mouth ity o f 20 mg Tab 18:18: at [place] [address] bedtime. [facility] prednisoLON 2017-0 Yes 1[drp] 1 Drop Un emanuel E acetate 1 6-15 every 2 ity o f % 18:18: (two) [place] [facility] 54 hours as Medic al suspension needed for Bra nch drops Itching. foLIC acid 2017-0 Yes 2mg Take 2 mg Un emanuel 1 mg tablet 6-15 by mouth ity of 18:18: daily. [place] [address] [facility] Branch foLIC acid 2017-0 Yes 2mg Take 2 mg Un emanuel 1 mg tablet 6-15 by mouth ity of 13:18: daily. [place] [address] [facility] Branch simvastatin 2017-0 Yes 40mg Take 40 mg [facility] 40 mg 6-15 by mouth ity of tablet 13:18: at [place] [address] bedtime. [facility] traZODONE 20170 Yes 100mg Take [facility] 100 mg 6-15 100-200 mg ity of tablet 13:18: by mouth [place] [address] at bedtime Medical as needed Branch for Insomnia. ARIPiprazol 20170 Yes 20mg Take 20 mg [facility] e (ABILIFY) 6-15 by mouth ity of 20 mg 13:18: at [place] [address] bedtime. [facility] suvorexant 2017-0 Yes 20mg Take 20 mg U nivers (BELSOMRA) 6-15 by mouth ity o f 20 mg Tab 13:18: at [place] [address] bedtime. [facility] prednisoLON 2017-0 Yes 1[drp] 1 Drop Un emanuel E acetate 1 6-15 every 2 ity o f % 13:18: (two) [place] [facility] 54 hours as Medic al suspension needed for Bra nch drops Itching. foLIC acid 2017-0 Yes 2mg Take 2 mg Un emanuel 1 mg tablet 6-15 by mouth ity of 13:18: daily. [place] [address] [facility] Branch simvastatin 2017-0 Yes 40mg Take 40 mg [facility] 40 mg 6-15 by mouth ity of tablet 13:18: at [place] [address] bedtime. [facility] traZODONE 2017-0 Yes 100mg Take [facility] 100 mg 6-15 100-200 mg ity of tablet 13:18: by mouth [place] [address] at bedtime Medical as needed Branch for Insomnia. ARIPiprazol 20170 Yes 20mg Take 20 mg [facility] e (ABILIFY) 6-15 by mouth ity of 20 mg 13:18: at [place] [address] bedtime. [facility] suvorexant 20170 Yes 20mg Take 20 mg U nivers (BELSOMRA) 6-15 by mouth ity o f 20 mg Tab 13:18: at [place] [address] bedtime. [facility] prednisoLON 2017 Yes 1[drp] 1 Drop Un emanuel E acetate 1 6-15 every 2 ity o f % 13:18: (two) [place] [facility] 54 hours as Medic al suspension needed for Bra nch drops Itching. foLIC acid 2017 Yes 2mg Take 2 mg Un emanuel 1 mg tablet 6-15 by mouth ity of 13:18: daily. [place] [address] [facility] Branch simvastatin 2017-0 Yes 40mg Take 40 mg [facility] 40 mg 6-15 by mouth ity of tablet 13:18: at [place] [address] bedtime. [facility] traZODONE 20170 Yes 100mg Take [facility] 100 mg 6-15 100-200 mg ity of tablet 13:18: by mouth [place] [address] at bedtime Medical as needed Branch for Insomnia. ARIPiprazol Yes 20mg Take 20 mg [facility] e (ABILIFY) 6-15 by mouth ity of 20 mg 13:18: at [place] [address] bedtime. [facility] Branch suvorexant Yes 20mg Take 20 mg U nivers (BELSOMRA) 6-15 by mouth ity o f 20 mg Tab 13:18: at [place] [address] bedtime. [facility] prednisoLON 2017 Yes 1[drp] 1 Drop Un emanuel E acetate 1 6-15 every 2 ity o f % 13:18: (two) [place] [facility] 54 hours as Medic al suspension needed for Bra nch drops Itching. foLIC acid 2017-0 Yes 2mg Take 2 mg Un emanuel 1 mg tablet 6-15 by mouth ity of 13:18: daily. [place] [address] [facility] Branch simvastatin 2017-0 Yes 40mg Take 40 mg [facility] 40 mg 6-15 by mouth ity of tablet 13:18: at [place] [address] bedtime. [facility] Branch traZODONE 2017-0 Yes 100mg Take [facility] 100 mg 6-15 100-200 mg ity of tablet 13:18: by mouth [place] [address] at bedtime Medical as needed Branch for Insomnia. ARIPiprazol 2017-0 Yes 20mg Take 20 mg [facility] e (ABILIFY) 6-15 by mouth ity of 20 mg 13:18: at [place] [address] bedtime. [facility] Branch suvorexant 20170 Yes 20mg Take 20 mg U nivers (BELSOMRA) 6-15 by mouth ity o f 20 mg Tab 13:18: at [place] [address] bedtime. [facility] Branch prednisoLON 20170 Yes 1[drp] 1 Drop Un emanuel E acetate 1 6-15 every 2 ity o f % 13:18: (two) [place] [facility] 54 hours as Medic al suspension needed for Bra nch drops Itching. foLIC acid 2017 Yes 2mg Take 2 mg Un emanuel 1 mg tablet 6-15 by mouth ity of 13:18: daily. [place] [address] [facility] Branch simvastatin 20170 Yes 40mg Take 40 mg [facility] 40 mg 6-15 by mouth ity of tablet 13:18: at [place] [address] bedtime. [facility] Branch traZODONE 20170 Yes 100mg Take [facility] 100 mg 6-15 100-200 mg ity of tablet 13:18: by mouth [place] [address] at bedtime Medical as needed Branch for Insomnia. ARIPiprazol 20170 Yes 20mg Take 20 mg [facility] e (ABILIFY) 6-15 by mouth ity of 20 mg 13:18: at [place] [address] bedtime. [facility] Branch suvorexant 0 Yes 20mg Take 20 mg U nivers (BELSOMRA) 6-15 by mouth ity o f 20 mg Tab 13:18: at [place] [address] bedtime. [facility] Branch prednisoLON 20170 Yes 1[drp] 1 Drop Un emanuel E acetate 1 6-15 every 2 ity o f % 13:18: (two) [place] [facility] 54 hours as Medic al suspension needed for Bra nch drops Itching. foLIC acid 2017-0 Yes 2mg Take 2 mg Un emanuel 1 mg tablet 6-15 by mouth ity of 13:18: daily. [place] [address] [facility] Branch simvastatin 2017-0 Yes 40mg Take 40 mg [facility] 40 mg 6-15 by mouth ity of tablet 13:18: at [place] [address] bedtime. [facility] Branch traZODONE 2017-0 Yes 100mg Take [facility] 100 mg 6-15 100-200 mg ity of tablet 13:18: by mouth [place] [address] at bedtime Medical as needed Branch for Insomnia. ARIPiprazol 20170 Yes 20mg Take 20 mg [facility] e (ABILIFY) 6-15 by mouth ity of 20 mg 13:18: at [place] [address] bedtime. [facility] Branch suvorexant 20170 Yes 20mg Take 20 mg U nivers (BELSOMRA) 6-15 by mouth ity o f 20 mg Tab 13:18: at [place] [address] bedtime. [facility] Branch prednisoLON 20170 Yes 1[drp] 1 Drop Un emanuel E acetate 1 6-15 every 2 ity o f % 13:18: (two) [place] ophthal[facility] 54 hours as Medic al suspension needed for Bra nch drops Itching. foLIC acid 20170 Yes 2mg Take 2 mg Un emanuel 1 mg tablet 6-15 by mouth ity of 13:18: daily. [place] [address] [facility] Branch simvastatin 20170 Yes 40mg Take 40 mg [facility] 40 mg 6-15 by mouth ity of tablet 13:18: at [place] [address] bedtime. [facility] Branch traZODONE 0 Yes 100mg Take Univers 100 mg 6-15 100-200 mg ity of tablet 13:18: by mouth [place] [address] at bedtime Medical as needed Branch for Insomnia. ARIPiprazol 0 Yes 20mg Take 20 mg [facility] e (ABILIFY) 6-15 by mouth ity of 20 mg 13:18: at [place] [address] bedtime. Medical Branch suvorexant Yes 20mg Take 20 mg U nivers (BELSOMRA) 6-15 by mouth ity o f 20 mg Tab 13:18: at [place] [address] bedtime. [facility] Branch prednisoLON 20170 Yes 1[drp] 1 Drop Un emanuel E acetate 1 6-15 every 2 ity o f % 13:18: (two) [place] ophthal[facility] 54 hours as Medic al suspension needed for Bra nch drops Itching. foLIC acid 20170 Yes 2mg Take 2 mg Un emanuel 1 mg tablet 6-15 by mouth ity of 13:18: daily. [place] [address] [facility] Branch simvastatin 2017-0 Yes 40mg Take 40 mg [facility] 40 mg 6-15 by mouth ity of tablet 13:18: at [place] [address] bedtime. Medical Branch traZODONE 20170 Yes 100mg Take Univers 100 mg 6-15 100-200 mg ity of tablet 13:18: by mouth [place] [address] at bedtime Medical as needed Branch for Insomnia. ARIPiprazol 2017-0 Yes 20mg Take 20 mg Univers e (ABILIFY) 6-15 by mouth ity of 20 mg 13:18: at [facility] 54 bedtime. Medical Branch suvorexant 2017-0 Yes 20mg Take 20 mg U nivers (BELSOMRA) 6-15 by mouth ity o f 20 mg Tab 13:18: at [place] [address] bedtime. Medical Branch prednisoLON 2017-0 Yes 1[drp] 1 Drop Un emanuel E acetate 1 6-15 every 2 ity o f % 13:18: (two) [place] ophthalmic 54 hours as Medic al suspension needed for Bra nch drops Itching. foLIC acid 2017-0 Yes 2mg Take 2 mg Un emanuel 1 mg tablet 6-15 by mouth ity of 13:18: daily. [place] [address] Medical Branch simvastatin 2017-0 Yes 40mg Take 40 mg Univers 40 mg 6-15 by mouth ity of tablet 13:18: at [place] [address] bedtime. Medical Branch traZODONE 20170 Yes 100mg Take Univers 100 mg 6-15 100-200 mg ity of tablet 13:18: by mouth [place] [address] at bedtime Medical as needed Branch for Insomnia. ARIPiprazol 20170 Yes 20mg Take 20 mg Univers e (ABILIFY) 6-15 by mouth ity of 20 mg 13:18: at [facility] 54 bedtime. Medical Branch suvorexant 20170 Yes 20mg Take 20 mg U nivers (BELSOMRA) 6-15 by mouth ity o f 20 mg Tab 13:18: at [place] [address] bedtime. Medical Branch prednisoLON 2017-0 Yes 1[drp] 1 Drop Un emanuel E acetate 1 6-15 every 2 ity o f % 13:18: (two) [place] ophthalmic 54 hours as Medic al suspension needed for Bra nch drops Itching. foLIC acid 2017-0 Yes 2mg Take 2 mg Un emanuel 1 mg tablet 6-15 by mouth ity of 13:18: daily. [place] [address] Medical Branch simvastatin 2017-0 Yes 40mg Take 40 mg Univers 40 mg 6-15 by mouth ity of tablet 13:18: at [place] [address] bedtime. Medical Branch traZODONE 2017-0 Yes 100mg Take Univers 100 mg 6-15 100-200 mg ity of tablet 13:18: by mouth [place] [address] at bedtime Medical as needed Branch for Insomnia. ARIPiprazol Yes 20mg Take 20 mg Univers e (ABILIFY) 6-15 by mouth ity of 20 mg 13:18: at [facility] 54 bedtime. Medical Branch suvorexant Yes 20mg Take 20 mg U nivers (BELSOMRA) 6-15 by mouth ity o f 20 mg Tab 13:18: at [place] 54 bedtime. Medical Branch prednisoLON Yes 1[drp] 1 Drop Un emanuel E acetate 1 6-15 every 2 ity o f % 13:18: (two) [place] ophthalmic 54 hours as Medic al suspension [...] 12.5 MG / 14:00: Drug Form: Mikel medinaarchana Lisinopril 00 TAB, 10 MG Oral Dosing [...] 7- Route: PO, l 14:00: Drug form: [place] 00 CAP, Daily, Dosing Weight 134.5, kg, Start date: 08/11/15 9:00:00 CDT, Duration: 30 day, Stop date: 09/09/15 9:00:00 CDT Hydrochloro 2016-0 No 1 tab, Alonzo summer thiazide - Route: PO, l 12.5 MG / 14:00: Drug Form: He naomi Lisinopril 00 TAB, 10 MG Oral Dosing Tablet Weight 134.5, kg, Daily, Start date: 08/11/15 9:00:00 CDT, Duration: 30 day, Stop date: 09/09/15 9:00:00 CDT Zetia 2015-0 No Notes: Memoria 08-10 (Same as: l 14:00: Zetia) [place] Dexilant 2015-0 No 60 mg, Memoria 08-10 Route: PO, l 14:00: Drug form: [place] 00 DRC, Daily, Dosing Weight 134.5, kg, [...] 08-10 Route: PO, l 14:00: Drug form: [place] 00 CAP, Daily, Dosing Weight 134.5, kg, [...] 08-10 Route: PO, l 14:00: Drug form: [place] 00 TAB, Daily, Dosing Weight 134.5, kg, Start date: 08/11/15 9:00:00 CDT, Duration: 30 day, Stop date: 09/09/15 9:00:00 CDT Abilify 2015-0 No 20 mg, Memoria 08-10 Route: PO, l 14:00: Drug form: [place] 00 TAB, Daily, Dosing Weight 134.5, kg, [...] 08-10 Route: PO, l 14:00: Drug form: [place] 00 DRC, Daily, Dosing Weight 134.5, kg, [...] 08-10 Route: PO, l 14:00: Drug form: [place] 00 DRC, Daily, Dosing Weight 134.5, kg, Start date: 08/11/15 9:00:00 CDT, Duration: 30 day, Stop date: 09/09/15 9:00:00 CDT Nuvigil 2016-0 No 250 mg, Memoria 08-10 Route: PO, l 14:00: Drug form: [place] 00 TAB, Daily, Dosing Weight 134.5, kg, Start date: 08/11/15 9:00:00 CDT, Duration: 30 day, Stop date: 09/09/15 9:00:00 CDT Abilify 2016-0 No 20 mg, Memoria 08-10 Route: PO, l 14:00: Drug form: [place] 00 TAB, Daily, Dosing Weight 134.5, kg, [...] 08-10 Route: PO, l 14:00: Drug form: [place] 00 DRC, Daily, Dosing Weight 134.5, kg, [...] 7 Route: PO, l 14:00: Drug form: [place] 00 TAB, Daily, Dosing Weight 134.5, kg, [...] 08-10 Route: PO, l 14:00: Drug form: [place] 00 DRC, Daily, Dosing Weight 134.5, kg, Start date: 08/11/15 9:00:00 CDT, Duration: 30 day, Stop date: 09/09/15 9:00:00 CDT Nuvigil 2015-0 No 250 mg, Memoria 08-10 Route: PO, l 14:00: Drug form: [place] 00 TAB, Daily, Dosing Weight 134.5, kg, [...] 08-10 Route: PO, l 14:00: Drug form: [place] 00 DRC, Daily, Dosing Weight 134.5, kg, Start date: 08/11/15 9:00:00 CDT, Duration: 30 day, Stop date: 09/09/15 9:00:00 CDT Nuvigil 2015-0 No 250 mg, Memoria 08-10 Route: PO, l 14:00: Drug form: [place] 00 TAB, Daily, Dosing Weight 134.5, kg, Start date: 08/11/15 9:00:00 CDT, Duration: 30 day, Stop date: 09/09/15 9:00:00 CDT Abilify 2015-0 No 20 mg, Memoria 08-10 Route: PO, l 14:00: Drug form: [place] 00 TAB, Daily, Dosing Weight 134.5, kg, Start date: 08/11/15 9:00:00 CDT, Duration: 30 day, Stop date: 09/09/15 9:00:00 CDT Deplin 2015-0 No 15 mg, Memoria 08-10 Route: PO, l 14:00: Drug form: [place] 00 CAP, Daily, Dosing Weight 134.5, kg, [...] [place] Dexilant 2016-0 No 60 mg, Memoria 7 Route: PO, l 14:00: Drug form: [place] 00 DRC, Daily, Dosing Weight 134.5, kg, [...] 7- Route: PO, l 14:00: Drug form: [place] 00 CAP, Daily, Dosing Weight 134.5, kg, [...] Memoria 08-10 (Same as: l 14:00: Zetia) [place] Dexilant 2015-0 No 60 mg, Memoria 08-10 Route: PO, l 14:00: Drug form: [place] 00 DRC, Daily, Dosing Weight 134.5, kg, Start date: 08/11/15 9:00:00 CDT, Duration: 30 day, Stop date: 09/09/15 9:00:00 CDT Nuvigil 2015-0 No 250 mg, Memoria 08-10 Route: PO, l 14:00: Drug form: [place] 00 TAB, Daily, Dosing Weight 134.5, kg, Start date: 08/11/15 9:00:00 CDT, Duration: 30 day, Stop date: 09/09/15 9:00:00 CDT Abilify 2015-0 No 20 mg, Memoria 08-10 Route: PO, l 14:00: Drug form: [place] 00 TAB, Daily, Dosing Weight 134.5, kg, Start date: 08/11/15 9:00:00 CDT, Duration: 30 day, Stop date: 09/09/15 9:00:00 CDT Deplin 2015-0 No 15 mg, Memoria 08-10 Route: PO, l 14:00: Drug form: [place] CAP, Daily, Dosing Weight 134.5, kg, Start [...] 6-30 Route: PO, l 22:00: Drug form: [place] 00 TAB, BID, Dosing Weight 134.5, kg, [...] 6-30 Route: PO, l 22:00: Drug form: [place] 00 TAB, BID, Dosing Weight 134.5, kg, Start date: 08/10/15 17:00:00 CDT Savella 2016-0 No 50 mg, Memoria 6-30 Route: PO, l 22:00: Drug form: [place] 00 TAB, BID, Dosing Weight 134.5, kg, Start date: 08/10/15 17:00:00 CDT Savella 2016-0 No 50 mg, Memoria 6-30 Route: PO, l 22:00: Drug form: [place] 00 TAB, BID, Dosing Weight 134.5, kg, Start date: 08/10/15 17:00:00 CDT Savella 2016-0 No 50 mg, Memoria 630 Route: PO, l 22:00: Drug form: [place] [...] Ketorolac 2016-0 No 4 days Memor ia 630 l 17:00: MEDICATION [place] 00 WASTE Product Size: 30 mg Product Wasted: _15__ mg Ketorolac 2016-0 No 4 days Memor ia 6-30 l 17:00: MEDICATION [place] 00 WASTE Product Size: 30 mg Product Wasted: _15__ mg Ketorolac 2015-0 No 4 days Memor ia 6-30 l 17:00: MEDICATION [place] WASTE Product Size: 30 mg Product Wasted: _15__ mg Ketorolac 2016-0 No 4 days Memor ia 6-30 l 17:00: MEDICATION [place] 00 WASTE Product Size: 30 mg Product Wasted: _15__ mg Ketorolac 2016-0 No 4 days Memor ia 6-30 l 17:00: MEDICATION [place] WASTE Product Size: 30 mg Product Wasted: _15__ mg Ketorolac 2016-0 No 4 days Memor ia 6-30 l 17:00: MEDICATION [place] WASTE Product Size: 30 mg Product Wasted: _15__ mg Ketorolac 2016-0 No 4 days Memor ia 6-30 l 17:00: MEDICATION [place] 00 WASTE Product Size: 30 mg Product [...] as: l / 16:29: Duoneb) Ipratropium 00 [place] 0.167 MG/ML Inhalant Solution [DuoNeb] celecoxib Yes Notes: Memori a 6-30 NSAID. l 16:29: Please check indication . Not for seizure. (Same As: CeleBREX) 72 HR Yes Notes: Memoria Scopolamine - Change l 0.0139 16:29: patch [place] MG/HR 00 every 72 Transdermal hours Patch [...] as: l / 16:29: Duoneb) Ipratropium 00 [place] 0.167 MG/ML Inhalant Solution [DuoNeb] celecoxib Yes [...] l 16:29: Roxicodone ) Hydromorpho No Notes: Aolnzo summer ne 30 (Same as: l 16:29: [...] Mem oria 6-30 MEDICATION l 16:29: WASTE [place] 00 Product Size: 0.4 mg Product Wasted: _0.2__ mg Glycopyrrol No Notes: Alonzo summer ate -30 (Same as: l 16:29: Robinul) [place] 00 Phenylephri No Notes: Alonzo summer ne 6-30 Same as: l 16:29: Erik-Syneph [place] 00 rine Albuterol No Notes: Memori a 0.833 MG/ML -30 (Same as: l / 16:29: Duoneb) Ipratropium 00 [place] 0.167 MG/ML Inhalant Solution [DuoNeb] celecoxib Yes Notes: Memori a 6-30 NSAID. l 16:29: Please [place] 00 check indication . Not for seizure. (Same As: CeleBREX) 72 HR Yes Notes: [facility]oria Scopolamine -30 Change l 0.0139 16:29: patch [place] MG/HR 00 every 72 Transdermal hours Patch (Same as: Transderm- Scop) Midazolam No Notes: Memori a 6-30 (Same as: l 16:29: Versed) MEDICATION WASTE Product Size: 2 mg Product Wasted: _1__ mg Ephedrine No Notes: Memori a 6-30 (Same as: l 16:29: ePHEDrine [place] Sulfate) Flumazenil No Notes: Memor ia 6-30 (Same as: l 16:29: Romazicon) [place] 00 Calcium No 1,000 mL, Memor ia Chloride 30 Rate: 125 l 0.0014 16:29: ml/hr, [place] MEQ/ML / 00 Infuse Potassium over: 8 [...] Memoria l 6-30 RT l 16:29: DOCUMENTAT [place] 00 ION (Same as:Xopenex ) Non-Formul george [...] as: l / 16:29: Duoneb) Ipratropium 00 [place] 0.167 MG/ML Inhalant Solution [DuoNeb] celecoxib Yes [...] a 6-30 (Same as: l 16:29: ePHEDrine [place] 00 Sulfate) Flumazenil No Notes: Memor ia 6-30 (Same as: l 16:29: Romazicon) [place] Calcium No 1,000 mL, Memor ia Chloride 6-30 Rate: 125 l 0.0014 16:29: ml/hr, [place] MEQ/ML / 00 Infuse Potassium over: 8 [...] mine 6-30 (Same as: l 16:29: Benadryl) [place] 00 Albuterol No Notes: SEE Me moria 0.83 MG/ML -30 RT l Inhalant 16:29: DOCUMENTAT Her brito Solution 00 ION (Same as: Proventil) Atropine No Notes: Mem oria 6-30 MEDICATION l 16:29: WASTE Product Size: 0.4 mg Product Wasted: _0.2__ mg Glycopyrrol No Notes: Alonzo summer ate -30 (Same as: l 16:29: Robinul) [place] 00 Phenylephri No Notes: Alonzo summer ne 08-09 Same as: l 16:29: Erik-Syneph [place] 00 rine Albuterol No Notes: Memori a 0.833 MG/ML 30 (Same as: l / 16:29: Duoneb) Ipratropium 00 [place] 0.167 MG/ML Inhalant Solution [DuoNeb] celecoxib Yes Notes: Memori a 6-30 NSAID. l 16:29: Please [place] 00 check indication . Not for seizure. (Same As: CeleBREX) 72 HR Yes Notes: Memoria Scopolamine - Change l 0.0139 16:29: patch [place] MG/HR 00 every 72 Transdermal hours Patch [...] summer ne 6-30 Concentrat l 16:29: ion: [place] 00 4mg/ml Ondansetron No Notes: Alonzo summer [...] 6-30 (Same as: l / 16:29: Duoneb) [place] Ipratropium 00 [place] 0.167 MG/ML Inhalant Solution [DuoNeb] celecoxib Yes Notes: Memori a 6-30 NSAID. l 16:29: Please [place] 00 check indication . Not for seizure. (Same As: CeleBREX) 72 HR Yes Notes: Memoria Scopolamine 6-30 Change l 0.0139 16:29: patch [place] MG/HR 00 every 72 Transdermal hours Patch (Same as: Transderm- Scop) Midazolam No Notes: Memori a 6-30 (Same as: l 16:29: Versed) [place] 00 MEDICATION WASTE Product Size: 2 mg Product Wasted: _1__ mg Ephedrine No Notes: Memori a 6-30 (Same as: l 16:29: ePHEDrine [place] 00 Sulfate) Flumazenil No Notes: Memor ia 6-30 (Same as: l 16:29: Romazicon) [place] 00 Calcium No 1,000 mL, Memor ia Chloride 630 Rate: 125 l 0.0014 16:29: ml/hr, [place] [...] a 6-30 (Same as: l 16:29: Normodyne, [place] 00 Trandate) Push over 2 minutes Give bolus over 2-3 minutes. Metoprolol No Notes: Memor ia 6-30 (Same as: l 16:29: Lopressor) Push over 2 minutes Morphine No Notes: Memoria 6-30 (Same l 16:29: as:MORPhin [place] 00 e Sulfate) Fentanyl No Notes: Memoria 6-30 (Same as: l 16:29: Sublimaze) Preservati ve free. Oxycodone No Notes: Memori a 30 (Same as: l 16:29: Roxicodone ) Hydromorpho No Notes: Alozno summer ne 08-09 (Same as: l 16:29: [...] as: l / 16:29: Duoneb) Ipratropium 00 [place] 0.167 MG/ML Inhalant Solution [DuoNeb] celecoxib Yes Notes: Memori a 6-30 NSAID. l 16:29: Please [place] 00 check indication . Not for seizure. (Same As: CeleBREX) 72 HR Yes Notes: Memoria Scopolamine -30 Change l 0.0139 16:29: patch [place] MG/HR 00 every 72 Transdermal hours Patch (Same as: Transderm- Scop) Midazolam No Notes: Memori a 6-30 (Same as: l 16:29: Versed) MEDICATION WASTE Product Size: 2 mg Product Wasted: _1__ mg Ephedrine No Notes: Memori a 6-30 (Same as: l 16:29: ePHEDrine [place] 00 Sulfate) Flumazenil No Notes: Memor ia 6-30 (Same as: l 16:29: Romazicon) [place] 00 Calcium No 1,000 mL, Memor ia Chloride 30 Rate: 125 l 0.0014 16:29: ml/hr, [place] MEQ/ML / 00 Infuse Potassium over: 8 [...] summer ne 6-30 Concentrat l 16:29: ion: [place] 00 4mg/ml Ondansetron No Notes: Alonzo summer [...] as: l / 16:29: Duoneb) Ipratropium 00 [place] 0.167 MG/ML Inhalant Solution [DuoNeb] celecoxib Yes Notes: Memori a 6-30 NSAID. l 16:29: Please [place] 00 check indication . Not for seizure. (Same As: CeleBREX) 72 HR Yes Notes: Memoria Scopolamine 6-30 Change l 0.0139 16:29: patch [place] MG/HR 00 every 72 Transdermal hours Patch (Same as: Transderm- Scop) Midazolam No Notes: Memori a 6-30 (Same as: l 16:29: Versed) [place] 00 MEDICATION WASTE Product Size: 2 mg Product Wasted: _1__ mg Ephedrine No Notes: Memori a 6-30 (Same as: l 16:29: ePHEDrine Sulfate) Flumazenil No Notes: Memor ia 6-30 (Same as: l 16:29: Romazicon) Calcium No 1,000 mL, Memor ia Chloride 6-30 Rate: 125 l 0.0014 16:29: ml/hr, [place] MEQ/ML / 00 Infuse Potassium over: 8 [...] as:MORPhin e Sulfate) Fentanyl No Notes: Memoria -30 (Same as: l 16:29: Sublimaze) Preservati ve [...] as: l / 16:29: Duoneb) Ipratropium 00 [place] 0.167 MG/ML Inhalant Solution [DuoNeb] celecoxib Yes Notes: Memori a 6-30 NSAID. l 16:29: Please [place] 00 check indication . Not for seizure. (Same As: CeleBREX) 72 HR Yes Notes: Memoria Scopolamine 6-30 Change l 0.0139 16:29: patch [place] MG/HR 00 every 72 Transdermal hours Patch [...] Notes: Memoria 6-30 (Same l 16:29: as:MORPhin [place] 00 e Sulfate) Fentanyl No Notes: Memoria [...] summer ne 30 Concentrat l 16:29: ion: [place] 00 4mg/ml Ondansetron No Notes: Alonzo summer [...] l 16:29: Robinul) Phenylephri No Notes: Alonzo usmmer ne 30 Same as: l 16:29: Erik-Syneph rine Albuterol No Notes: Memori a 0.833 MG/ML 6-30 (Same as: l / 16:29: Duoneb) [place] Ipratropium 00 [place] 0.167 MG/ML Inhalant Solution [DuoNeb] celecoxib Yes Notes: Memori a 6-30 NSAID. l 16:29: Please [place] 00 check indication . Not for seizure. (Same As: CeleBREX) 72 HR Yes Notes: Memoria Scopolamine 6-30 Change l 0.0139 16:29: patch [place] MG/HR 00 every 72 Transdermal hours Patch (Same as: Transderm- Scop) Midazolam No Notes: Memori a 6-30 (Same as: l 16:29: Versed) MEDICATION WASTE Product Size: 2 mg Product Wasted: _1__ mg Ephedrine No Notes: Memori a 6-30 (Same as: l 16:29: ePHEDrine Sulfate) Flumazenil No Notes: Memor ia 6-30 (Same as: l 16:29: Romazicon) [place] 00 Calcium No 1,000 mL, Memor ia [...] as:MORPhin e Sulfate) Fentanyl No Notes: Memoria -30 (Same as: l 16:29: Sublimaze) Preservati ve [...] summer 6-30 (Same as: l 16:29: Zofran) [place] 00 MEDICATION WASTE Product Size: 4 mg Product Wasted: ___ mg Diphenhydra No Notes: Alonzo summer mine 6-30 (Same as: l 16:29: Benadryl) [place] 00 Albuterol No Notes: SEE Me moria 0.83 MG/ML 6-30 RT l Inhalant 16:29: DOCUMENTAT Her brito Solution 00 ION (Same as: Proventil) Atropine No Notes: Mem oria 6-30 MEDICATION l 16:29: WASTE Product Size: 0.4 mg Product Wasted: _0.2__ mg Glycopyrrol No Notes: Aolnzo summer ate -30 (Same as: l 16:29: Robinul) [place] 00 Phenylephri No Notes: [place]onzo summer ne -30 Same as: l 16:29: Erik-Syneph [place] 00 rine Albuterol No Notes: Memori a 0.833 MG/ML -30 (Same as: l / 16:29: Duoneb) Ipratropium 00 [place] 0.167 MG/ML Inhalant Solution [DuoNeb] celecoxib Yes Notes: Memori a 6-30 NSAID. l 16:29: Please [place] 00 check indication . Not for seizure. (Same As: CeleBREX) 72 HR Yes Notes: Memoria Scopolamine 6-30 Change l 0.0139 16:29: patch [place] MG/HR 00 every 72 Transdermal hours Patch (Same as: Transderm- Scop) Midazolam No Notes: Memori a 6-30 (Same as: l 16:29: Versed) [place] 00 MEDICATION WASTE Product Size: 2 mg Product Wasted: _1__ mg Ephedrine No Notes: Memori a 6-30 (Same as: l 16:29: ePHEDrine [place] 00 Sulfate) Flumazenil No Notes: Memor ia [...] 00 (Same as: Tylenol) Hydromorpho No Notes: Alnozo summer ne 6-30 (Same as: l 16:24: Dilaudid) [place] 00 Acetaminoph No Notes: [place]on[place] summer en 325 MG / 6-30 (Same as: l Hydrocodone 16:24: [place] nn Bitartrate 00 325/5) Do 5 [...] / 6-30 (Same as: l Hydrocodone 16:24: [place] nn Bitartrate 00 325/5) Do 5 MG Oral not exceed Tablet 4gm/day of acetaminop hen. Tramadol No Notes: Not Mem oria 6-30 to exceed l 16:24: 400mg/day. [place] 00 (Same As: Ultram) Acetaminoph No Notes: Do M emoria en 6-30 not exceed l 16:24: 4 gm/day. [place] 00 (Same as: Tylenol) Hydromorpho No Notes: Alonzo summer ne 6-30 (Same as: l 16:24: Dilaudid) [place] 00 Acetaminoph No Notes: Alonzo summer en 325 MG / 6-30 (Same as: l Hydrocodone 16:24: [place] nn Bitartrate 00 325/5) Do 5 MG Oral not exceed Tablet 4gm/day of acetaminop hen. Tramadol No Notes: Not Mem oria 6-30 to exceed l 16:24: 400mg/day. [place] 00 (Same As: Ultram) Acetaminoph No Notes: Do M emoria en 6-30 not exceed l 16:24: 4 gm/day. (Same as: Tylenol) Hydromorpho No Notes: Alonzo summer ne 6-30 (Same as: l 16:24: Dilaudid) [place] 00 Acetaminoph No Notes: Alonzo summer en 325 MG / 6-30 (Same as: l Hydrocodone 16:24: [place] nn Bitartrate 00 325/5) Do 5 [...] / 6-30 (Same as: l Hydrocodone 16:24: [place] nn Bitartrate 00 325/5) Do 5 [...] / 6-30 (Same as: l Hydrocodone 16:24: [place] nn Bitartrate 00 325/5) Do 5 MG Oral not exceed Tablet 4gm/day of acetaminop hen. Tramadol No Notes: Not Mem oria 6-30 to exceed l 16:24: 400mg/day. [place] 00 (Same As: Ultram) Acetaminoph No Notes: Do M emoria en 6-30 not exceed l 16:24: 4 gm/day. (Same as: Tylenol) Hydromorpho No Notes: Alonzo summer ne 6-30 (Same as: l 16:24: Dilaudid) Acetaminoph No Notes: Alon[place] summer en 325 MG / 6-30 (Same as: l Hydrocodone 16:24: [place] nn Bitartrate 00 325/5) Do 5 [...] / 6-30 (Same as: l Hydrocodone 16:24: [place] nn Bitartrate 00 325/5) Do 5 [...] / 6-30 (Same as: l Hydrocodone 16:24: [place] nn Bitartrate 00 325/5) Do 5 MG Oral not exceed Tablet 4gm/day of acetaminop hen. Tramadol No Notes: Not Mem oria 6-30 to exceed l 16:24: 400mg/day. (Same As: Ultram) Acetaminoph No Notes: Do M emoria en 6-30 not exceed l 16:24: 4 gm/day. [place] 00 (Same as: Tylenol) Hydromorpho No Notes: Alonzo summer ne 6-30 (Same as: l 16:24: Dilaudid) Acetaminoph No Notes: Al[place] summer en 325 MG / 6-30 (Same as: l Hydrocodone 16:24: [place] nn Bitartrate 00 325/5) Do 5 MG Oral not exceed Tablet 4gm/day of acetaminop hen. Tramadol No Notes: Not Mem oria 6-30 to exceed l 16:24: 400mg/day. [place] 00 (Same As: Ultram) Acetaminoph No Notes: Do M emoria en 6-30 not exceed l 16:24: 4 gm/day. (Same as: Tylenol) Hydromorpho No Notes: Alonzo summer ne 6-30 (Same as: l 16:24: Dilaudid) Acetaminoph No Notes: [place]on[place] summer en 325 MG / 6-30 (Same as: l Hydrocodone 16:24: [place] nn Bitartrate 00 325/5) Do 5 [...] 6-30 Drug form: l 15:45: INJ, ONCE, [place] 00 Stop date: 08/10/15 10:45:00 CDT fentaNYL 2016-0 No Route: IV, Mem oria (ANES) 6-30 Drug form: l 15:45: INJ, ONCE, [place] Stop date: 08/10/15 10:45:00 CDT midazolam 2016-0 No Route: IV, Me moria (ANES) 6-30 Drug form: l 15:45: SOLN, [place] 00 ONCE, Stop date: 08/10/15 10:45:00 CDT [...] (ANES) 6-30 Drug form: l 15:45: SOLN, [place] 00 ONCE, Stop date: 08/10/15 10:45:00 CDT [...] (ANES) 6-30 Drug form: l 15:45: SOLN, [place] 00 ONCE, Stop date: 08/10/15 10:45:00 CDT succinylcho 2016-0 No Route: IV, Memoria line (ANES) 6-30 Drug form: l 15:45: INJ, ONCE, [place] 00 Stop date: 08/10/15 10:45:00 CDT propofol 2016-0 No Route: IV, Mem oria (ANES) 6-30 Drug form: l 15:45: INJ, ONCE, [place] 00 Stop date: 08/10/15 10:45:00 CDT lidocaine 2016-0 No Route: IV, Me moria (ANES) 6-30 Drug form: l 15:45: INJ, ONCE, Stop date: 08/10/15 10:45:00 CDT fentaNYL 2016-0 No Route: IV, Mem oria (ANES) 6-30 Drug form: l 15:45: INJ, ONCE, [place] 00 Stop date: 08/10/15 10:45:00 CDT midazolam [...] (ANES) 6-30 Drug form: l 15:45: SOLN, [place] 00 ONCE, Stop date: 08/10/15 10:45:00 CDT succinylcho 2016-0 No Route: IV, Memoria line (ANES) 6-30 Drug form: l 15:45: INJ, ONCE, [place] 00 Stop date: 08/10/15 10:45:00 CDT propofol [...] (ANES) 6-30 Drug form: l 15:45: SOLN, [place] 00 ONCE, Stop date: 08/10/15 10:45:00 CDT [...] Drug form: l 15:45: INJ, ONCE, [place] Stop date: 08/10/15 10:45:00 CDT midazolam 2016-0 No Route: IV, Me moria (ANES) 6-30 Drug form: l 15:45: SOLN, [place] 00 ONCE, Stop date: 08/10/15 10:45:00 CDT succinylcho 2016-0 No Route: IV, Memoria line (ANES) 6-30 Drug form: l 15:45: INJ, ONCE, [place] 00 Stop date: 08/10/15 10:45:00 CDT propofol 0 No Route: IV, Mem oria (ANES) 6-30 Drug form: l 15:45: INJ, ONCE, Stop date: 08/10/15 10:45:00 CDT lidocaine 2015-0 No Route: IV, Me moria (ANES) 6-30 Drug form: l 15:45: INJ, ONCE, Stop date: 08/10/15 10:45:00 CDT fentaNYL 2015-0 No Route: IV, Mem oria (ANES) 6-30 Drug form: l 15:45: INJ, ONCE, Stop date: 08/10/15 10:45:00 CDT midazolam 2015-0 No Route: IV, Me moria (ANES) 6-30 Drug form: l 15:45: SOLN, ONCE, Stop date: 08/10/15 10:45:00 CDT ePHEDrine 2015-0 No Route: IV, Me [...] INJ (ANES) 6-30 Total l 14:51: Volume: [place] 00 1,000, Start date: 08/10/15 9:51:00 CDT, Stop date: 08/10/15 10:51:00 CDT LR 1000 mL No Route: IV, M emoria INJ (ANES) 6-30 Total l 14:51: Volume: [place] 00 1,000, Start date: 08/10/15 9:51:00 CDT, Stop date: 08/10/15 10:51:00 CDT LR 1000 mL No Route: IV, M emoria INJ (ANES) 6-30 Total l 14:51: Volume: [place] 00 1,000, Start date: 08/10/15 9:51:00 CDT, [...] INJ (ANES) 6-30 Total l 14:51: Volume: [place] 00 1,000, Start date: 08/10/15 9:51:00 CDT, Stop date: 08/10/15 10:51:00 CDT LR 1000 mL No Route: IV, M emoria INJ (ANES) 6-30 Total l 14:51: Volume: [place] 00 1,000, Start date: 08/10/15 9:51:00 CDT, [...] Roll in l Human 13:01: palms of [place] 00 hands gently; Do not shake vigorously [...] 6-30 Same as: l 0.09 13:01: Ventolin [place] MG/ACTUAT 00 HFA WASTE: Metered Aerosol - Dose Return to [facility] Calcium No 1,000 mL, Memor ia Chloride 6-30 Rate: 25 l 0.0014 13:01: ml/hr, [place] MEQ/ML / 00 Infuse Potassium over: 40 Chloride hr, Route: 0.004 IV, Dosing MEQ/ML / Weight Sodium 134.091 Chloride kg, Total 0.103 Volume: MEQ/ML / 1,000, Sodium Start Lactate date: 0.028 08/09/16 MEQ/ML 8:01:00 Injectable CDT, Solution Duration: 30 day, Stop date: 09/09/15 8:00:00 CDT Insulin, No Notes: Memoria Aspart, 6-30 Roll in l Human 13:01: palms of [place] 00 hands gently; Do not shake vigorously . (Same as: NovoLOG) "single patient use only" WASTE: F/P - Black; E - Municipal Trash Bin Stable for 28 days at room temperatur e. Expires in days from ____Date 200 ACTUAT No Notes: Memor ia Albuterol 6-30 Same as: l 0.09 13:01: Ventolin [place] MG/ACTUAT 00 HFA WASTE: Metered Aerosol - Dose Return to [facility] Calcium No 1,000 mL, Memor ia Chloride 6-30 Rate: 25 l 0.0014 13:01: ml/hr, [place] MEQ/ML / 00 Infuse Potassium over: 40 Chloride hr, Route: 0.004 IV, Dosing MEQ/ML / Weight Sodium 134.091 Chloride kg, Total 0.103 Volume: MEQ/ML / 1,000, Sodium Start Lactate date: 0.028 06/30/16 MEQ/ML 8:01:00 Injectable CDT, Solution Duration: 30 day, Stop date: 09/09/15 8:00:00 CDT Insulin, No Notes: Memoria Aspart, 6-30 Roll in l Human 13:01: palms of [place] 00 hands gently; Do not shake vigorously . (Same as: NovoLOG) "single patient use only" WASTE: F/P - Black; E - Municipal Trash Bin Stable for 28 days at room temperatur e. Expires in days from ____Date 200 ACTUAT No Notes: Memor ia Albuterol 6-30 Same as: l 0.09 13:01: Ventolin [place] MG/ACTUAT 00 HFA WASTE: Metered Aerosol - [...] Roll in l Human 13:01: palms of [place] 00 hands gently; Do not shake vigorously [...] 6-30 Rate: 25 l 0.0014 13:01: ml/hr, [place] MEQ/ML / 00 Infuse Potassium over: 40 [...] 6-30 Same as: l 0.09 13:01: Ventolin [place] MG/ACTUAT 00 HFA WASTE: Metered Aerosol - [...] 6-30 Same as: l 0.09 13:01: Ventolin [place] MG/ACTUAT 00 HFA WASTE: Metered Aerosol - [...] Roll in l Human 13:01: palms of [place] 00 hands gently; Do not shake vigorously [...] Roll in l Human 13:01: palms of [place] 00 hands gently; Do not shake vigorously . (Same as: NovoVouchAR) "single patient use only" WASTE: F/P - [...] 6-30 Rate: 25 l 0.0014 13:01: ml/hr, [place] MEQ/ML / 00 Infuse Potassium over: 40 [...] Do not shake vigorously . (Same as: NovoVouchAR) "single patient use only" WASTE: F/P - [...] 6-30 Rate: 25 l 0.0014 13:01: ml/hr, [place] MEQ/ML / 00 Infuse Potassium over: 40 [...] Memoria 6-30 Same as: l 11:00: Ancef [place] 00 BD Normal No Notes: Memori a Saline 6-30 (Same as: l Flush 11:00: BD [place] 00 Posiflush) Ancef No Notes: Memoria 6-30 Same as: l 11:00: Ancef [place] 00 BD Normal No Notes: Memori a Saline 6-30 (Same as: l Flush 11:00: BD [place] 00 Posiflush) Ancef No Notes: Memoria 6-30 Same as: l 11:00: Ancef [place] 00 BD Normal No Notes: Memori a Saline 6-30 (Same as: l Flush 11:00: BD [place] 00 Posiflush) Ancef No Notes: Memoria 6-30 Same as: l 11:00: Ancef [place] 00 BD Normal No Notes: Memori a Saline 6-30 (Same as: l Flush 11:00: BD [place] 00 Posiflush) Ancef No Notes: Memoria 6-30 Same as: l 11:00: Ancef [place] 00 BD Normal No Notes: Memori a Saline 6-30 (Same as: l Flush 11:00: BD [place] 00 Posiflush) Ancef No Notes: Memoria 6-30 Same as: l 11:00: Ancef [place] 00 BD Normal No Notes: Memori a Saline 6-30 (Same as: l Flush 11:00: BD [place] 00 Posiflush) Ancef No Notes: Memoria 6-30 Same as: l 11:00: Ancef [place] 00 BD Normal No Notes: Memori a [...] 6-30 (Same as: l Flush 11:00: BD [place] 00 Posiflush) Ancef No Notes: Memoria 6-30 Same as: l 11:00: Ancef [place] 00 BD Normal No Notes: Memori a Saline 6-30 (Same as: l Flush 11:00: BD [place] 00 Posiflush) Ancef No Notes: Memoria 6-30 [...] tab, PO, l Tablet 14:58: Daily, # [place] [Nuvigil] 00 30 tab, 0 Refill(s) armodafinil Yes 250 mg = 1 [place] 250 MG Oral 6-23 tab, PO, l Tablet 14:58: Daily, # [place] [Nuvigil] 00 30 tab, 0 Refill(s) armodafinil Yes 250 mg = 1 [place] 250 MG Oral 6-23 tab, PO, l Tablet 14:58: Daily, # [place] [Nuvigil] 00 30 tab, 0 Refill(s) armodafinil Yes 250 mg = 1 [place] 250 MG Oral 6-23 tab, PO, l Tablet 14:58: Daily, # [place] [Nuvigil] 00 30 tab, 0 Refill(s) armodafinil Yes 250 mg = 1 [place] 250 MG Oral 6-23 tab, PO, l Tablet 14:58: Daily, # [place] [Nuvigil] 00 30 tab, 0 Refill(s) armodafinil Yes 250 mg = 1 [place] 250 MG Oral 6-23 tab, PO, l Tablet 14:58: Daily, # [place] [Nuvigil] 00 30 tab, 0 Refill(s) armodafinil Yes 250 mg = 1 [place] 250 MG Oral 6-23 tab, PO, l Tablet 14:58: Daily, # [place] [Nuvigil] 00 30 tab, 0 Refill(s) armodafinil Yes 250 mg = 1 [place] 250 MG Oral 6-23 tab, PO, l Tablet 14:58: Daily, # [place] [Nuvigil] 00 30 tab, 0 Refill(s) armodafinil [...] tab, PO, l Tablet 14:58: Daily, # [place] [Nuvigil] 00 30 tab, 0 Refill(s) Suvorexant [...] tab, PO, l Tablet 14:56: Daily, 0 [place] [Zetia] 00 Refill(s) Milnacipran Yes 50 mg [...] tab, PO, l Tablet 14:56: Daily, 0 [place] [Zetia] 00 Refill(s) Milnacipran 20160 Yes 50 [...] tab, PO, l Tablet 14:56: Daily, 0 [place] [Zetia] 00 Refill(s) Milnacipran 2016-0 Yes 50 [...] 0 [place] r[place] [Abilify] 00 Refill(s) ezetimibe 20160 Yes 10 mg = 1 Mem oria 10 MG Oral 6-23 tab, PO, l Tablet 14:56: Daily, 0 [place] [Zetia] 00 Refill(s) Milnacipran 2016-0 Yes 50 [...] tab, PO, l Tablet 14:56: Daily, 0 [place] [Zetia] 00 Refill(s) Milnacipran 2016-0 Yes 50 [...] 0 [place] r[place] [Abilify] 00 Refill(s) ezetimibe 20160 Yes 10 mg = 1 Mem oria 10 MG Oral 6-23 tab, PO, l Tablet 14:56: Daily, 0 [place] [Zetia] 00 Refill(s) Milnacipran 2016-0 Yes 50 [...] tab, PO, l Tablet 14:56: Daily, 0 [place] [Zetia] 00 Refill(s) Milnacipran Yes 50 mg [...] FlexTouch 6-23 Daily, 0 l 14:55: Refill(s) [place] 00 0.65 ML 2015-0 Yes 2 mg, [...] FlexTouch 6-23 Daily, 0 l 14:55: Refill(s) [place] 00 0.65 ML 2015-0 Yes 2 mg, [...] FlexTouch 6-23 Daily, 0 l 14:55: Refill(s) [place] 00 0.65 ML 2016-0 Yes 2 mg, [...] FlexTouch 6-23 Daily, 0 l 14:55: Refill(s) [place] 00 0.65 ML 0 Yes 2 mg, [...] FlexTouch 6-23 Daily, 0 l 14:55: Refill(s) [place] 00 0.65 ML 0 Yes 2 mg, [...] FlexTouch 6-23 Daily, 0 l 14:55: Refill(s) [place] 00 0.65 ML Yes 2 mg, Memoria [...] roquine 6-23 PO, Daily, l 14:53: 0 [place] 00 Refill(s) pilocarpine Yes 7.5 mg = [...] roquine 6-23 PO, Daily, l 14:53: 0 [place] 00 Refill(s) pilocarpine 2016-0 Yes 7.5 mg [...] roquine 6-23 PO, Daily, l 14:53: 0 [place] 00 Refill(s) pilocarpine 2016-0 Yes 7.5 mg [...] roquine 6-23 PO, Daily, l 14:53: 0 [place] 00 Refill(s) pilocarpine 2016-0 Yes 7.5 mg [...] roquine 6-23 PO, Daily, l 14:53: 0 [place] 00 Refill(s) pilocarpine 2016-0 Yes 7.5 mg [...] roquine 6-23 PO, Daily, l 14:53: 0 [place] 00 Refill(s) pilocarpine 2016-0 Yes 7.5 mg [...] roquine 6-23 PO, Daily, l 14:53: 0 [place] 00 Refill(s) Hydroxychlo 2016-0 Yes 200 mg, Mem oria roquine 6-23 PO, Daily, l 14:53: 0 [place] 00 Refill(s) pilocarpine 2016-0 Yes 7.5 mg [...] Memori a e 6-23 Refill(s) l 14:52: [place] 00 Methotrexat 2016-0 Yes INTRATHECA Memoria e [...] cap, PO, l Capsule 14:52: BID, 0 [place] [Celebrex] 00 Refill(s) Methotrexat Yes 0 Memori a e 6-23 Refill(s) l 14:52: [place] 00 Methotrexat Yes INTRATHECA Memoria e Sodium, [...] cap, PO, l Capsule 14:52: BID, 0 [place] [Celebrex] 00 Refill(s) Methotrexat Yes 0 Memori a e 6-23 Refill(s) l 14:52: [place] 00 Methotrexat Yes INTRATHECA Memoria e Sodium, 6-23 L, ONCE, 0 l Preservativ 14:52: Refill(s) H ermann e Free 25 00 mg/mL injectable solution celecoxib Yes 200 mg = 1 Me moria 200 MG Oral 6-23 cap, PO, l Capsule 14:52: BID, 0 [place] [Celebrex] 00 Refill(s) Methotrexat Yes 0 Memori a e 6-23 Refill(s) l 14:52: [place] 00 Methotrexat Yes INTRATHECA Memoria e Sodium, 6-23 L, ONCE, 0 l Preservativ 14:52: Refill(s) H ermann e Free 25 00 mg/mL injectable solution celecoxib Yes 200 mg = 1 Me moria 200 MG Oral 6-23 cap, PO, l Capsule 14:52: BID, 0 [place] [Celebrex] 00 Refill(s) Methotrexat Yes 0 Memori a e 6-23 Refill(s) l 14:52: [place] 00 Methotrexat Yes INTRATHECA Memoria e Sodium, 6-23 L, ONCE, 0 l Preservativ 14:52: Refill(s) H ermann e Free 25 00 mg/mL injectable solution celecoxib Yes 200 mg = 1 Me moria 200 MG Oral 6-23 cap, PO, l Capsule 14:52: BID, 0 [place] [Celebrex] 00 Refill(s) Methotrexat Yes 0 Memori a e 6-23 Refill(s) l 14:52: [place] 00 Methotrexat Yes INTRATHECA Memoria e Sodium, [...] Memori a e 6-23 Refill(s) l 14:52: [place] 00 Methotrexat 0 Yes INTRATHECA Memoria e Sodium, 6-23 L, ONCE, 0 l Preservativ 14:52: Refill(s) H ermann e Free 25 00 mg/mL injectable solution celecoxib Yes 200 mg = 1 Me moria 200 MG Oral 6-23 cap, PO, l Capsule 14:52: BID, 0 [place] [Celebrex] 00 Refill(s) Methotrexat Yes 0 Memori a e 6-23 Refill(s) l 14:52: [place] 00 Methotrexat Yes INTRATHECA Memoria e Sodium, 6-23 L, ONCE, 0 l Preservativ 14:52: Refill(s) H ermann e Free 25 00 mg/mL injectable solution Folic Acid Yes 1 mg = 1 Mem oria 1 MG Oral 6-23 tab, PO, l Tablet 14:51: Daily, 0 [place] 00 Refill(s) Folic Acid Yes 1 mg = 1 Mem oria 1 MG Oral 6-23 tab, PO, l Tablet 14:51: Daily, 0 [place] 00 Refill(s) Folic Acid 0 Yes 1 mg = 1 Mem oria 1 MG Oral 6-23 tab, PO, l Tablet 14:51: Daily, 0 [place] 00 Refill(s) Folic Acid 20160 Yes 1 mg = 1 Mem oria 1 MG Oral 6-23 tab, PO, l Tablet 14:51: Daily, 0 [place] 00 Refill(s) Folic Acid 20160 Yes 1 mg = 1 Mem oria 1 MG Oral 6-23 tab, PO, l Tablet 14:51: Daily, 0 [place] 00 Refill(s) Folic Acid 2016-0 Yes 1 mg = 1 Mem oria 1 MG Oral 6-23 tab, PO, l Tablet 14:51: Daily, 0 [place] 00 Refill(s) Folic Acid Yes 1 mg = 1 Mem oria 1 MG Oral 6-23 tab, PO, l Tablet 14:51: Daily, 0 [place] 00 Refill(s) Folic Acid Yes 1 mg = 1 Mem oria 1 MG Oral 6-23 tab, PO, l Tablet 14:51: Daily, 0 [place] 00 Refill(s) Folic Acid Yes 1 mg = 1 Mem oria 1 MG Oral 6-23 tab, PO, l Tablet 14:51: Daily, 0 [place] 00 Refill(s) Folic Acid Yes 1 mg = 1 Mem oria 1 MG Oral 6-23 tab, PO, l Tablet 14:51: Daily, 0 [place] 00 Refill(s) Folic Acid Yes 1 mg = 1 Mem oria 1 MG Oral 6-23 tab, PO, l Tablet 14:51: Daily, 0 [place] 00 Refill(s) Abilify 20 Abilify 20 Yes 1 po [...] Bydureon Yes [place] PEN PEN Physici ans Celebrex Celebrex Yes Luciano 1 capsule Common [place] with food Spirit - [facility] Cyclobenzap Cyclobenzap Yes Luciano 1 tablet Common rine HCl rine HCl [place] as needed S pirit [facility] Zestoretic Zestoretic Yes Luciano 1 tablet Common [facility] Abilify Abilify Yes Luciano 1 tablet Com mon [facility] Restasis Restasis Yes Luciano 1 drop Com mon [facility] into [facility] affected [facility] eye [facility] Humalog Humalog Yes Luciano as Common [facility] directed [facility] Plaquenil Plaquenil Yes Luciano 1 tablet Common Travis with food [facility] or milk [facility] Iron Iron Yes Luciano 1 tablet Common [facility] Leflunomide Leflunomide Yes Luciano 1 tablet Common [facility] Vistaril Vistaril Yes Luciano 1 capsule Common [facility] as needed [facility] Bydureon Bydureon Yes Luciano not Commo n [facility] defined [facility] ProAir HFA ProAir HFA Yes Luciano 2 puffs as Common [facility] needed [facility] Pilocarpine Pilocarpine Yes Luciano 1 tablet Common HCl HCl [facility] Savella Savella Yes Luciano 2 tablets Co mmon [facility] Guaifenesin Guaifenesin Yes Luciano 10 ml as Common -Codeine -Codeine Travis needed Spir [facility] Atorvastati Atorvastati Yes Luciano 1 tablet Common n Calcium n Calcium Travis Spir [facility] Omeprazole Omeprazole Yes Luciano 1 capsule Common [facility] Breo Breo Yes Luciano 1 puff Common Ellipta Ellipta [facility] Trazodone Trazodone Yes Luciano 1 tablet Common HCl HCl Travis at bedtime [facility] Toujeo Toujeo Yes Luciano not Common SoloStar SoloStar Travis defined [facility] Tolterodine Tolterodine Yes Luciano 1 capsule Common Tartrate ER Tartrate ER [facility] Hemocyte Hemocyte Yes Luciano 1 capsule Common Plus Plus [facility] Folic Acid Folic Acid Yes Luciano 1 tablet Common [facility] MetFORMIN MetFORMIN Yes Luciano 1 tablet Common HCl ER HCl ER [facility] at night [facility] Metformin Metformin Yes Luciano 1 tablet Common HCl HCl [facility] with a Spirit meal in - [facility] Saphris Saphris Yes Luciano 1 tablet Com mon [place] under the Spirit tongue and - [facility] allow to [facility] Paxil Paxil Yes Luciano 1 tablet Common [place] in the [facility] Colace Colace Yes Luciano 1 capsule Comm on [place] as needed [facility] Leflunomide Leflunomide No 1{table QD Leflunomid [...] 100-10 100-10 d} 100-10 MG/5ML MG/5ML MG/5ML [place] No [place] metFORMIN metFORMIN No QD metFORMIN HCl 1000 [...] 100-10 100-10 d} 100-10 MG/5ML MG/5ML MG/5ML [place] No [place] metFORMIN metFORMIN No QD metFORMIN HCl 1000 [...] 100-10 100-10 d} 100-10 MG/5ML MG/5ML MG/5ML [place] No [place] metFORMIN metFORMIN No QD metFORMIN HCl 1000 [...] 20-12.5 MG 20-12.5 MG t} 20-12.5 MG Toumanojo Tobarbo No BID Toujeo SoloStar SoloStar SoloStar [...] QD Abilify 20 MG MG t} MG [place] No [place] Plaquenil Plaquenil No 1{table QD Plaquenil 200 [...] QD Abilify 20 MG MG t} MG [place] No [place] Plaquenil Plaquenil No 1{table QD Plaquenil 200 [...] QD Abilify 20 MG MG t} MG [place] No [place] Plaquenil Plaquenil No 1{table QD Plaquenil 200 [...] QD Abilify 20 MG MG t} MG [place] No [place] Plaquenil Plaquenil No 1{table QD Plaquenil 200 [...] 100 No HumaLOG UNIT/ML UNIT/ML 100 UNIT/ML [place] No [place] Breo Breo No 1{puff} QD Breo Ellipta [...] 100 No HumaLOG UNIT/ML UNIT/ML 100 UNIT/ML [place] No [place] Breo Breo No 1{puff} QD Breo Ellipta [...] 100 MG t_at_be HCl 100 MG dtime} Toumatthias Tosulaiman No BID Tosulaiman Zavala SolRory SoloStar 300u/ml 300u/ml 300u/ml Zestoretic Zestoretic No [...] 100 No HumaLOG UNIT/ML UNIT/ML 100 UNIT/ML [place] No [place] Breo Breo No 1{puff} QD Breo Ellipta [...] 100 No HumaLOG UNIT/ML UNIT/ML 100 UNIT/ML [place] No [place] Breo Breo No 1{puff} QD Breo Ellipta [...] 200 MG t_with_ 200 MG food_or _milk} [place] No [place] Omeprazole Omeprazole No 1{capsu QD Omeprazole 40 [...] Zestoretic 20-12.5 MG 20-12.5 MG 20-12.5 MG [place] [place] No [place] Iron 325 Iron 325 No 1{table QD [...] Zestoretic 20-12.5 MG 20-12.5 MG 20-12.5 MG [place] [place] No [place] Iron 325 Iron 325 No 1{table QD [...] t_under MG _the_to ngue_an d_allow _to_dis solve} [place] No [place] Zoloft 50 Zoloft 50 No 1{table QD [...] Ellipta 200-25 200-25 200-25 MCG/INH MCG/INH MCG/INH [place] No [place] metFORMIN metFORMIN No QD metFORMIN HCl ER [...] 100-10 100-10 d} 100-10 MG/5ML MG/5ML MG/5ML [place] No [place] Folic Acid Folic Acid No 1{table QD [...] 100-10 100-10 d} 100-10 MG/5ML MG/5ML MG/5ML [place] No [place] Folic Acid Folic Acid No 1{table QD [...] Completed [facility] (Triamcinolone) (Triamcinolone) 14:42:00 - [facility] [facility] 2019-11-02 Completed [facility] (Triamcinolone) (Triamcinolone) 14:42:00 - [facility] 2019-11-02 Completed [facility] (Triamcinolone) (Triamcinolone) 14:42:00 - [facility] 2019-11-02 Completed [facility] (Triamcinolone) (Triamcinolone) 14:42:00 - [facility] 2019-11-02 Completed [facility] (Triamcinolone) (Triamcinolone) 14:42:00 - [facility] 2019-11-02 Completed [facility] (Triamcinolone) (Triamcinolone) 14:42:00 - [facility] 2019-11-02 Completed [facility] (Triamcinolone) (Triamcinolone) 14:42:00 - [facility] 2019-11-02 Completed [facility] (Triamcinolone) (Triamcinolone) 14:42:00 - [facility] 2019-11-02 Completed [facility] (Triamcinolone) (Triamcinolone) 14:42:00 - [facility] Vital Signs Vital Name Observation Time Observation Value Comments Source height 2022-02-08 71 [in_i] [facility] - 15:20:00 [facility] weight 2022-02-08 240 [lb_av] [facility] - 15:20:00 [facility] bmi 2022-02-08 33.47 kg/m2 [facility] - 15:20:00 [facility] height 2022-01-16 71 [in_i] [facility] - 10:40:00 [facility] weight 2022-01-16 239.6 [lb_av] [facility] - 10:40:00 [facility] temperature 2022-01-16 97.5 [degF] [facility] [place] - 10:40:00 [facility] bmi 2022-01-16 33.41 kg/m2 [facility] [place] - 10:40:00 [facility] oximetry 2022-01-16 97 % [facility] - 10:40:00 [facility] respiratory rate 2022-01-16 17 /min [facility] - 10:40:00 [facility] blood pressure 2022-01-16 121 mm[Hg] [facility] - systolic 10:40:00 [facility] blood pressure 2022-01-16 68 mm[Hg] [facility] - diastolic 10:40:00 [facility] Systolic blood 2021-10-31 126 mm[Hg] [facility] pressure 19:16:00 Diastolic blood 2021-10-31 84 mm[Hg] [facility] pressure 19:16:00 Body height 2021-10-31 180.3 cm [facility] 19:16:00 Body weight 2021-10-31 112.038 kg [facility] 19:16:00 BMI 2021-10-31 34.45 kg/m2 [facility] [...] 2021-10-17 71 [in_i] [facility] - 11:20:00 [facility] weight 2021-10-17 230 [lb_av] [facility] - 11:20:00 [facility] temperature 2021-10-17 97.6 [degF] [facility] - 11:20:00 [facility] bmi 2021-10-17 32.07 kg/m2 [facility] - 11:20:00 [facility] oximetry 2021-10-17 97 % [facility] - 11:20:00 [facility] respiratory rate 2021-10-17 16 /min [facility] - 11:20:00 [facility] blood pressure 2021-10-17 132 mm[Hg] [facility] - systolic 11:20:00 [facility] blood pressure 2021-10-17 76 mm[Hg] [facility] - diastolic 11:20:00 [facility] Systolic blood 2021-10-11 135 mm[Hg] [facility] pressure 13:08:00 [facility] Diastolic blood 2021-10-11 81 mm[Hg] [place] [facility] pressure 13:08:00 [facility] Heart rate 2021-10-11 78 /min [facility] 13:08:00 [facility] Body height 2021-10-11 180.3 cm [facility] 13:08:00 [facility] Body weight 2021-10-11 104.101 kg [facility] 13:08:00 [facility] BMI 2021-10-11 32.01 kg/m2 [facility] 13:08:00 [facility] Oxygen saturation 2021-10-11 97 /min [facility] Arterial blood 13:08:00 [facility] Pulse oximetry [place] height 2021-07-18 71.5 [in_i] [facility] - 10:40:00 [facility] weight 2021-07-18 228.9 [lb_av] [facility] - 10:40:00 [facility] temperature 2021-07-18 98.1 [degF] [facility] - 10:40:00 [facility] bmi 2021-07-18 31.48 kg/m2 [facility] - 10:40:00 [facility] oximetry 2021-07-18 95 % [facility] - 10:40:00 [facility] respiratory rate 2021-07-18 17 /min [facility] - 10:40:00 [facility] blood pressure 2021-07-18 135 mm[Hg] [facility] - systolic 10:40:00 [facility] blood pressure 2021-07-18 76 mm[Hg] [facility] - diastolic 10:40:00 [facility] height 2021-04-03 71.5 [in_i] [facility] - 15:00:00 [facility] weight 2021-04-03 234 [lb_av] [facility] - 15:00:00 [facility] temperature 2021-04-03 96.9 [degF] [facility] - 15:00:00 [facility] bmi 2021-04-03 32.18 kg/m2 [facility] - 15:00:00 [facility] oximetry 2021-04-03 98 % [facility] - 15:00:00 [facility] respiratory rate 2021-04-03 17 /min [facility] - 15:00:00 [facility] blood pressure 2021-04-03 138 mm[Hg] [facility] - systolic 15:00:00 [facility] blood pressure 2021-04-03 75 mm[Hg] [facility] - diastolic 15:00:00 [facility] Systolic blood 2021-03-26 152 mm[Hg] [facility] pressure 18:40:00 [facility] Diastolic blood 2021-03-26 58 mm[Hg] [facility] 18:40:00 [facility] Heart rate 2021-03-26 95 /min [facility] 18:40:00 [facility] Body temperature 2021-03-26 37.22 Teresa [facility] 18:40:00 [facility] Respiratory rate 2021-03-26 18 /min [facility] 18:40:00 [facility] Body weight 2021-03-26 106.595 kg [facility] 18:40:00 [facility] BMI 2021-03-26 32.78 kg/m2 [facility] 18:40:00 [facility] Oxygen saturation 2021-03-26 100 /min [facility] Arterial blood 18:40:00 [facility] Pulse oximetry [place] height 2021-03-05 71.5 [in_i] [facility] - 09:50:00 [facility] weight 2021-03-05 239.4 [lb_av] [facility] - 09:50:00 [facility] temperature 2021-03-05 98.1 [degF] [facility] - 09:50:00 [facility] bmi 2021-03-05 32.92 kg/m2 [facility] - 09:50:00 [facility] oximetry 2021-03-05 98 % [facility] - 09:50:00 [facility] respiratory rate 2021-03-05 18 /min [facility] - 09:50:00 [facility] blood pressure 2021-03-05 136 mm[Hg] [facility] - systolic 09:50:00 [facility] blood pressure 2021-03-05 64 mm[Hg] [facility] - diastolic 09:50:00 [facility] height 2021-03-05 71.5 [in_i] [facility] - 09:50:00 [facility] weight 2021-03-05 239.4 [lb_av] [facility] - 09:50:00 [facility] temperature 2021-03-05 98.1 [degF] [facility] - 09:50:00 [facility] bmi 2021-03-05 32.92 kg/m2 [facility] - 09:50:00 [facility] oximetry 2021-03-05 98 % [facility] - 09:50:00 [facility] blood pressure 2021-03-05 136 mm[Hg] [facility] - systolic 09:50:00 [facility] blood pressure 2021-03-05 64 mm[Hg] [facility] - diastolic 09:50:00 [facility] height 2020-12-07 71.5 [in_i] [facility] - 10:10: [facility] weight 2020-12-07 250.3 [lb_av] [facility] - 10:10:00 [facility] temperature 2020-12-07 98.0 [degF] [facility] - 10:10:00 [facility] bmi 2020-12-07 34.42 kg/m2 [facility] - 10:10:00 [facility] oximetry 2020-12-07 98 % [facility] - 10:10:00 [facility] respiratory rate 2020-12-07 17 /min [facility] - 10:10: [facility] blood pressure 2020-12-07 135 mm[Hg] [facility] - systolic 10:10:00 [facility] blood pressure 2020-12-07 70 mm[Hg] [facility] - diastolic 10:10:00 [facility] Systolic blood 2020-12-03 127 mm[Hg] [facility] 19:16:00 [facility] Diastolic blood 2020-12-03 84 mm[Hg] [facility] 19:16:00 [facility] Heart rate 2020-12-03 85 /min [facility] 19:16:00 [facility] Body temperature 2020-12-03 36.5 Teresa [facility] 19:16:00 [facility] Respiratory rate 2020-12-03 16 /min [facility] 19:16:00 [facility] Body height 2020-12-03 180.3 cm [facility] 19:16:00 [facility] Body weight 2020-12-03 113.399 kg [facility] 19:16:00 [facility] BMI 2020-12-03 34.87 kg/m2 [facility] 19:16:00 [facility] Oxygen saturation 2020-12-03 97 /min [facility] Arterial blood 19:16:00 [facility] Pulse oximetry [place] height 2020-10-26 71.5 [in_i] [facility] [place] - 10:10:00 [facility] weight 2020-10-26 290 [lb_av] [facility] [place] - 10:10:00 [facility] temperature 2020-10-26 98 [degF] [facility] [place] - 10:10:00 [facility] bmi 2020-10-26 39.88 kg/m2 [facility] [place] - 10:10:00 [facility] blood pressure 2020-10-26 131 mm[Hg] [facility] [place] - systolic 10:10:00 [facility] blood pressure 2020-10-26 70 mm[Hg] [facility] [place] - diastolic 10:10:00 [facility] Systolic blood 2020-06-21 148 mm[Hg] [facility] 20:01:00 [facility] Diastolic blood 2020-06-21 85 mm[Hg] [facility] 20:01:00 [facility] Heart rate 2020-06-21 83 /min [facility] 20:01:00 [facility] Body temperature 2020-06-21 36.94 Teresa [facility] 20:01:00 [facility] Respiratory rate 2020-06-21 18 /min [facility] 20:01:00 [facility] Body height 2020-06-21 180.3 cm [facility] 20:01:00 [facility] Body weight 2020-06-21 131.271 kg [facility] 20:01:00 [facility] BMI 2020-06-21 40.36 kg/m2 [facility] 20:01:00 [facility] Systolic blood 2022-01-24 155 mm[Hg] [facility] 16:10:00 [facility] Diastolic blood 2022-01-24 77 mm[Hg] [facility] 16:10:00 [facility] Heart rate 2022-01-24 85 /min [facility] 16:10:00 [facility] Body temperature 2022-01-24 36.39 Teresa [facility] 16:10:00 [facility] Respiratory rate 2022-01-24 20 /min [facility] 16:10:00 [facility] Oxygen saturation 2022-01-24 100 /min [facility] in Arterial blood 16:10:00 [facility] by Pulse oximetry Body height 2022-01-24 180.3 cm [facility] 14:12:00 [facility] Body weight 2022-01-24 106.2 kg [facility] 14:12:00 [facility] BMI 2022-01-24 32.65 kg/m2 [facility] 14:12:00 [facility] Systolic blood 2020-06-22 144 mm[Hg] [facility] 15:10:00 Hospital Diastolic blood 2020-06-22 65 mm[Hg] [facility] 15:10:00 Hospital Heart rate 2020-06-22 88 /min [facility] 15:10:00 [facility] Body temperature 2020-06-22 36.22 Teresa [facility] 15:10:00 [facility] Body height 2020-06-22 180.3 cm [facility] 15:10:00 [facility] Respiratory rate 2020-05-05 16 /min [facility] 20:27:41 [facility] Oxygen saturation 2020-05-05 98 /min [facility] Arterial blood 20:27:41 [facility] by Pulse oximetry Body weight 2020-05-04 128.187 kg [facility] 22:05:46 [facility] BMI 2020-05-04 39.41 kg/m2 [facility] 22:05:46 [facility] BP Systolic 2017-09-03 130 mm[Hg] [...] He rmann 19:15:00 Diastolic (mm Hg) 2015-08-10 [facility] ermann 19:15:00 Respitory Rate 2015-08-10 [facility] 18:00:00 Heart Rate 2015-08-10 Chrystal Ashtonan n 18:00:00 Systolic (mm Hg) 2015-08-10 [facility] Mikel rmann 18:00:00 Diastolic (mm Hg) 2015-08-10 [facility] Arash ermann 18:00:00 Heart Rate 2015-08-10 Chrystal [facility]htonan n 17:45:00 Respitory Rate 2015-08-10 [facility] 17:45:00 Systolic (mm Hg) 2015-08-10 [facility] rmann 17:45:00 Diastolic (mm Hg) 2015-08-10 [facility] ermann 17:45:00 BMI Calculated 2015-08-10 [facility] Herm archana 13:14:00 Weight 2015-08-10 Chrystal Ashtonan n 13:14:00 Temperature Oral 2015-08-03 98.5 F [facility] rmann (F) 14:50:00 Height 2015-08-03 180.34 cm [facility] Randy n 13:51:00 Procedures Procedure Date / Time Performing Clinician Source Performed VITRECTOMY 2022-01-24 14:57:00 [facility] POC GLUCOSE 2022-01-24 14:38:00 [facility] POCT URINALYSIS DIPSTICK 2021-10-31 19:16:00 Shefali Hooper [facility] POCT URINALYSIS DIPSTICK 2021-10-24 18:43:00 Andressa Puckett [facility] POCT HEMOGLOBIN A1C TEST 2021-10-10 18:23:00 Brody Hinds [facility] REFERRAL- REQUEST/RESPONSE 2021-05-28 05:01:00 Doctor Unaamintaigned , [facility] NOTICE OF PRIVACY 2021-03-26 18:27:07 Doctor Shana, [facility] CONSENT/REFUSAL FOR 2021-03-26 18:26:47 Doctor Shana [facility] DIAGNOSIS AND TREATMENT [facility] NOTICE OF PRIVACY 2020-12-18 16:26:34 Doctor Shana, [facility] CONSENT/REFUSAL FOR 2020-12-18 16:25:51 Doctor Unassigned, [facility] DIAGNOSIS AND TREATMENT [facility] ASSIGNMENT OF BENEFITS 2020-12-18 16:25:20 Doctor Unassgiorgio, Ezek[facility] REFERRAL- REQUEST/RESPONSE 2020-12-08 05:01:00 Doctor Unassgiorgio , [facility] EKG-12 LEAD 2020-12-03 20:44:28 Greg Peacock [facility] [place] NOTICE OF PRIVACY 2020-12-03 19:10:09 Doctor Unassigned, [facility] PRACTICES [place] MRI BRAIN W WO CONTRAST 2020-05-05 18:29:00 [facility] 2020-05-05 17:10:[address] [facility] TTE COMPLETE, WO CONTRAST, 2020-05-05 15:22:00 Vidal Ortiz [facility] W AGITATED SALINE ([id number]) POC GLUCOSE 2020-05-05 12:19:[address] [facility] HC COMPLETE BLD COUNT 2020-05-05 10:15:00 [facility] W/AUTO DIFF BASIC METABOLIC PANEL 2020-05-05 10:15:00 [facility] VITAMIN B12 LEVEL 2020-05-05 10:[facility]00 [facility] VITAMIN B1 LEVEL, WHOLE 2020-05-05 10:15:00 [facility] BLOOD THYROID STIMULATING 2020-05-05 10:15[facility]00 [facility]IP[facility] 2020-05-05 10:15:00 [facility] HEMOGLOBIN A1C 2020-05-05 10:15:00 [facility] SEDIMENTATION RATE 2020-05-05 10:15:00 [facility] RAPID HIV 1 & 2 2020-05-05 10:15:00 Vidal Ortiz spital SYPHILIS TREPONEMA SCREEN 2020-05-05 10:15:00 Vidal Ortiz [facility] WITH RPR CONFIRMATION (REVERSE ALGORITHM) ESTIMATED GFR 2020-05-05 10:15:00 Chloe Minor spital C-REACTIVE PROTEIN 2020-05-05 10:15:00 Vidal Ortiz [facility] POC GLUCOSE 2020-05-05 01:38:00 Mily Chloe Castillo spital POC GLUCOSE 2020-05-04 22:14:00 [facility]URE 2020-05-04 20:33:00 Tom Means [facility] URINALYSIS SCREEN AND 2020-05-04 20:33:00 Tom Means [facility] MICROSCOPY, WITH REFLEX TO CULTURE COVID-19 QUALITATIVE 2020-05-04 20:27:00 Tom Means [facility] RT-PCR ECG 12-LEAD 2020-05-04 20:21:36 Chloe Minor [facility] spital CT ANGIOGRAM NECK W WO 2020-05-04 19:46:05 Tom Means [facility] CONTRAST CT ANGIOGRAM HEAD W WO 2020-05-04 19:45:38 Tom Means [facility] CONTRAST CT STROKE BRAIN WO 2020-05-04 19:36:06 Tom Means [facility] CONTRAST HC COMPLETE BLD COUNT 2020-05-04 19:19:00 Tom Means [facility] W/AUTO DIFF PARTIAL THROMBOPLASTIN 2020-05-04 19:19:00 Tom Means [facility] TIME (PTT) PROTHROMBIN TIME WITH INR 2020-05-04 19:19:00 Tom Means [facility] COMPREHENSIVE METABOLIC 2020-05-04 19:19:00 Tom Means [facility] PANEL ESTIMATED GFR 2020-05-04 19:19:00 Tom Means [facility] [[facility]] CULTURE, URINE, 2017-08-27 00:[facility]] CULTURE, URINE, 2017-08-21 00:00:00 [facility] [[facility]] CULTURE, URINE, 2017-06-09 00:00:00 [facility] With Endometrial Ablation CHILO - Endometrial laser [facility] ablation Limbal stem cell [facility] Randy iqbal transplantation ORIF - Open reduction and [facility] [place] internal fixation of fracture Tendon operation [facility] Randy iqbal Plan of Care Planned Activity Planned Date Details Comments Source Future Scheduled 2022-07-17 Screening for [facility] Test 12:04:55 malignant neoplasm of colon (procedure) [code = 364192097] Future Scheduled 2022-07-17 Screening for [facility] Test 12:04:55 malignant neoplasm of colon (procedure) [code = 581344124] Future Scheduled 2022-07-17 Screening for [facility] Test 12:04:55 malignant neoplasm of colon (procedure) [code = 411254997] Future Scheduled 2022-07-17 Pneumococcal Vaccine: [facility] Test 12:04:55 Pediatrics (0 to 5 Years) and At-Risk Patients (6 to 64 Years) (1 - PCV) [code = Pneumococcal Vaccine: Pediatrics (0 to 5 Years) and At-Risk Patients (6 to 64 Years) (1 - PCV)] Future Scheduled 2022-07-17 Hepatitis C screening [facility] Test 12:04:55 (procedure) [code = [id number]] Future Scheduled 2022-07-17 SHINGLES VACCINES (1 Met [facility] Test 12:04:55 of 2) [code = SHINGLES VACCINES (1 of 2)] Future Scheduled 2022-07-17 Screening for [facility] Test 12:04:55 malignant neoplasm of cervix (procedure) [code = 033160953] Future Scheduled 2022-07-17 BREAST CANCER [facility] Test 12:04:55 SCREENING [code = BREAST CANCER SCREENING] Future Scheduled 2022-07-17 Screening for [facility] Test 12:04:55 malignant neoplasm of colon (procedure) [code = 633694813] Future Scheduled 2022-07-17 Screening for [facility] Test 12:04:55 malignant neoplasm of colon (procedure) [code = 733779836] Future Scheduled 2022-07-17 HEPATITIS B VACCINES Met [facility] Test 12:04:55 (1 of 3 - Risk 3-dose series) [code = HEPATITIS B VACCINES (1 of 3 - Risk 3-dose series)] Future Scheduled 2022-07-17 COVID-19 VACCINE (2 - [facility] Test 12:04:55 Booster for Joel series) [code = COVID-19 VACCINE (2 - Booster for Joel series)] Future Scheduled 2022-07-17 INFLUENZA VACCINE [facility] Test 12:04:55 [code = INFLUENZA VACCINE] Future Scheduled 2022-02-01 Pneumococcal Vaccine: [facility] Test 18:59:30 Pediatrics (0 to 5 Years) and At-Risk Patients (6 to 64 Years) (1 - PCV) [code = Pneumococcal Vaccine: Pediatrics (0 to 5 Years) and At-Risk Patients (6 to 64 Years) (1 - PCV)] Future Scheduled 2022-02-01 Hepatitis C screening [facility] Test 18:59:30 (procedure) [code = 277691575] Future Scheduled 2022-02-01 SHINGLES VACCINES (1 Met [facility] Test 18:59:30 of 2) [code = SHINGLES VACCINES (1 of 2)] Future Scheduled 2022-02-01 Screening for [facility] Test 18:59:30 malignant neoplasm of cervix (procedure) [code = 399041145] Future Scheduled 2022-02-01 BREAST CANCER [facility] Test 18:59:30 SCREENING [code = BREAST CANCER SCREENING] Future Scheduled 2022-02-01 COLONOSCOPY SCREENING [facility] Test 18:59:30 [code = COLONOSCOPY SCREENING] Future Scheduled 2022-02-01 HEPATITIS B VACCINES Met [facility] Test 18:59:30 (1 of 3 - Risk 3-dose series) [code = HEPATITIS B VACCINES (1 of 3 - Risk 3-dose series)] Future Scheduled 2022-02-01 COVID-19 VACCINE (2 - [facility] Test 18:59:30 Booster for Joel series) [code = COVID-19 VACCINE (2 - Booster for Joel series)] Future Scheduled 2022-02-01 INFLUENZA VACCINE Method [facility] Test 18:59:30 [code = INFLUENZA VACCINE] Future Scheduled 2022-02-01 Pneumococcal Vaccine: [facility] Test 18:59:30 Pediatrics (0 to 5 Years) and At-Risk Patients (6 to 64 Years) (1 - PCV) [code = Pneumococcal Vaccine: Pediatrics (0 to 5 Years) and At-Risk Patients (6 to 64 Years) (1 - PCV)] Future Scheduled 2022-02-01 Hepatitis C screening [facility] Test 18:59:30 (procedure) [code = [id number]] Future Scheduled 2022-02-01 SHINGLES VACCINES (1 Met [facility] Test 18:59:30 of 2) [code = SHINGLES VACCINES (1 of 2)] Future Scheduled 2022-02-01 Screening for [facility] Test 18:59:30 malignant neoplasm of cervix (procedure) [code = 917247094] Future Scheduled 2022-02-01 BREAST CANCER [facility] Test 18:59:30 SCREENING [code = BREAST CANCER SCREENING] Future Scheduled 2022-02-01 COLONOSCOPY SCREENING [facility] Test 18:59:30 [code = COLONOSCOPY SCREENING] Future Scheduled 2022-02-01 HEPATITIS B VACCINES Met [facility] Test 18:59:30 (1 of 3 - Risk 3-dose series) [code = HEPATITIS B VACCINES (1 of 3 - Risk 3-dose series)] Future Scheduled 2022-02-01 COVID-19 VACCINE (2 - [facility] Test 18:59:30 Booster for Joel series) [code = COVID-19 VACCINE (2 - Booster for Joel series)] Future Scheduled 2022-02-01 INFLUENZA VACCINE Method [facility] Test 18:59:30 [code = INFLUENZA VACCINE] Future Scheduled 2022-02-01 Pneumococcal Vaccine: [facility] Test 18:59:30 Pediatrics (0 to 5 Years) and At-Risk Patients (6 to 64 Years) (1 - PCV) [code = Pneumococcal Vaccine: Pediatrics (0 to 5 Years) and At-Risk Patients (6 to 64 Years) (1 - PCV)] Future Scheduled 2022-02-01 Hepatitis C screening [facility] Test 18:59:30 (procedure) [code = 527147696] Future Scheduled 2022-02-01 SHINGLES VACCINES (1 Met [facility] Test 18:59:30 of 2) [code = SHINGLES VACCINES (1 of 2)] Future Scheduled 2022-02-01 Screening for [facility] Test 18:59:30 malignant neoplasm of cervix (procedure) [code = 960420602] Future Scheduled 2022-02-01 BREAST CANCER [facility] Test 18:59:30 SCREENING [code = BREAST CANCER SCREENING] Future Scheduled 2022-02-01 COLONOSCOPY SCREENING [facility] Test 18:59:30 [code = COLONOSCOPY SCREENING] Future Scheduled 2022-02-01 HEPATITIS B VACCINES Met [facility] Test 18:59:30 (1 of 3 - Risk 3-dose series) [code = HEPATITIS B VACCINES (1 of 3 - Risk 3-dose series)] Future Scheduled 2022-02-01 COVID-19 VACCINE (2 - [facility] Test 18:59:30 Booster for Joel series) [code = COVID-19 VACCINE (2 - Booster for Joel series)] Future Scheduled 2022-02-01 INFLUENZA VACCINE Method [facility] Test 18:59:30 [code = INFLUENZA VACCINE] Future Scheduled 2022-02-01 Pneumococcal Vaccine: [facility] Test 18:59:30 Pediatrics (0 to 5 Years) and At-Risk Patients (6 to 64 Years) (1 - PCV) [code = Pneumococcal Vaccine: Pediatrics (0 to 5 Years) and At-Risk Patients (6 to 64 Years) (1 - PCV)] Future Scheduled 2022-02-01 Hepatitis C screening [facility] Test 18:59:30 (procedure) [code = 904386420] Future Scheduled 2022-02-01 SHINGLES VACCINES (1 Met [facility] Test 18:59:30 of 2) [code = SHINGLES VACCINES (1 of 2)] Future Scheduled 2022-02-01 Screening for [facility] Test 18:59:30 malignant neoplasm of cervix (procedure) [code = 311177483] Future Scheduled 2022-02-01 BREAST CANCER [facility] Test 18:59:30 SCREENING [code = BREAST CANCER SCREENING] Future Scheduled 2022-02-01 COLONOSCOPY SCREENING [facility] Test 18:59:30 [code = COLONOSCOPY SCREENING] Future Scheduled 2022-02-01 HEPATITIS B VACCINES Met [facility] Test 18:59:30 (1 of 3 - Risk 3-dose series) [code = HEPATITIS B VACCINES (1 of 3 - Risk 3-dose series)] Future Scheduled 2022-02-01 COVID-19 VACCINE (2 - [facility] Test 18:59:30 Booster for Joel series) [code = COVID-19 VACCINE (2 - Booster for Joel series)] Future Scheduled 2022-02-01 INFLUENZA VACCINE Method [facility] Test 18:59:30 [code = INFLUENZA VACCINE] Future Scheduled 2022-02-01 Pneumococcal Vaccine: [facility] Test 18:59:30 Pediatrics (0 to 5 Years) and At-Risk Patients (6 to 64 Years) (1 - PCV) [code = Pneumococcal Vaccine: Pediatrics (0 to 5 Years) and At-Risk Patients (6 to 64 Years) (1 - PCV)] Future Scheduled 2022-02-01 Hepatitis C screening [facility] Test 18:59:30 (procedure) [code = 105143756] Future Scheduled 2022-02-01 SHINGLES VACCINES (1 Met [facility] Test 18:59:30 of 2) [code = SHINGLES VACCINES (1 of 2)] Future Scheduled 2022-02-01 Screening for [facility] Test 18:59:30 malignant neoplasm of cervix (procedure) [code = 441577423] Future Scheduled 2022-02-01 BREAST CANCER [facility] Test 18:59:30 SCREENING [code = BREAST CANCER SCREENING] Future Scheduled 2022-02-01 COLONOSCOPY SCREENING [facility] Test 18:59:30 [code = COLONOSCOPY SCREENING] Future Scheduled 2022-02-01 HEPATITIS B VACCINES Met [facility] Test 18:59:30 (1 of 3 - Risk 3-dose series) [code = HEPATITIS B VACCINES (1 of 3 - Risk 3-dose series)] Future Scheduled 2022-02-01 COVID-19 VACCINE (2 - [facility] Test 18:59:30 Booster for Joel series) [code = COVID-19 VACCINE (2 - Booster for Joel series)] Future Scheduled 2022-02-01 INFLUENZA VACCINE Method [facility] Test 18:59:30 [code = INFLUENZA VACCINE] Future Scheduled 2022-02-01 Pneumococcal Vaccine: [facility] Test 18:59:30 Pediatrics (0 to 5 Years) and At-Risk Patients (6 to 64 Years) (1 - PCV) [code = Pneumococcal Vaccine: Pediatrics (0 to 5 Years) and At-Risk Patients (6 to 64 Years) (1 - PCV)] Future Scheduled 2022-02-01 Hepatitis C screening [facility] Test 18:59:30 (procedure) [code = 314849587] Future Scheduled 2022-02-01 SHINGLES VACCINES (1 Met [facility] Test 18:59:30 of 2) [code = SHINGLES VACCINES (1 of 2)] Future Scheduled 2022-02-01 Screening for [facility] Test 18:59:30 malignant neoplasm of cervix (procedure) [code = 293433983] Future Scheduled 2022-02-01 BREAST CANCER [facility] Test 18:59:30 SCREENING [code = BREAST CANCER SCREENING] Future Scheduled 2022-02-01 COLONOSCOPY SCREENING [facility] Test 18:59:30 [code = COLONOSCOPY SCREENING] Future Scheduled 2022-02-01 HEPATITIS B VACCINES Met [facility] Test 18:59:30 (1 of 3 - Risk 3-dose series) [code = HEPATITIS B VACCINES (1 of 3 - Risk 3-dose series)] Future Scheduled 2022-02-01 COVID-19 VACCINE (2 - [facility] Test 18:59:30 Booster for Joel series) [code = COVID-19 VACCINE (2 - Booster for Joel series)] Future Scheduled 2022-02-01 INFLUENZA VACCINE Method [facility] Test 18:59:30 [code = INFLUENZA VACCINE] Future Scheduled 2022-02-01 Pneumococcal Vaccine: [facility] Test 18:59:30 Pediatrics (0 to 5 Years) and At-Risk Patients (6 to 64 Years) (1 - PCV) [code = Pneumococcal Vaccine: Pediatrics (0 to 5 Years) and At-Risk Patients (6 to 64 Years) (1 - PCV)] Future Scheduled 2022-02-01 Hepatitis C screening [facility] Test 18:59:30 (procedure) [code = 489321601] Future Scheduled 2022-02-01 SHINGLES VACCINES (1 Met [facility] Test 18:59:30 of 2) [code = SHINGLES VACCINES (1 of 2)] Future Scheduled 2022-02-01 Screening for [facility] Test 18:59:30 malignant neoplasm of cervix (procedure) [code = 222998975] Future Scheduled 2022-02-01 BREAST CANCER [facility] Test 18:59:30 SCREENING [code = BREAST CANCER SCREENING] Future Scheduled 2022-02-01 COLONOSCOPY SCREENING [facility] Test 18:59:30 [code = COLONOSCOPY SCREENING] Future Scheduled 2022-02-01 HEPATITIS B VACCINES Met [facility] Test 18:59:30 (1 of 3 - Risk 3-dose series) [code = HEPATITIS B VACCINES (1 of 3 - Risk 3-dose series)] Future Scheduled 2022-02-01 COVID-19 VACCINE (2 - [facility] Test 18:59:30 Booster for Joel series) [code = COVID-19 VACCINE (2 - Booster for Joel series)] Future Scheduled 2022-02-01 INFLUENZA VACCINE Method [facility] Test 18:59:30 [code = INFLUENZA VACCINE] Future Scheduled 2021-10-19 COVID-19 VACCINE (#1) [facility] Test 10:53:01 [code = COVID-19 VACCINE (#1)] Future Scheduled 2021-10-19 Pneumococcal Vaccine: [facility] Test 10:53:01 Pediatrics (0 to 5 Years) and At-Risk Patients (6 to 64 Years) (1 - PCV) [code = Pneumococcal Vaccine: Pediatrics (0 to 5 Years) and At-Risk Patients (6 to 64 Years) (1 - PCV)] Future Scheduled 2021-10-19 Hepatitis C screening [facility] Test 10:53:01 (procedure) [code = 331858834] Future Scheduled 2021-10-19 SHINGLES VACCINES (1 Met [facility] Test 10:53:01 of 2) [code = SHINGLES VACCINES (1 of 2)] Future Scheduled 2021-10-19 Screening for [facility] Test 10:53:01 malignant neoplasm of cervix (procedure) [code = 188243872] Future Scheduled 2021-10-19 BREAST CANCER [facility] Test 10:53:01 SCREENING [code = BREAST CANCER SCREENING] Future Scheduled 2021-10-19 COLONOSCOPY SCREENING [facility] Test 10:53:01 [code = COLONOSCOPY SCREENING] Future Scheduled 2021-10-19 HEPATITIS B VACCINES Met [facility] Test 10:53:01 (1 of 3 - Risk 3-dose series) [code = HEPATITIS B VACCINES (1 of 3 - Risk 3-dose series)] Future Scheduled 2021-10-19 INFLUENZA VACCINE Method [facility] Test 10:53:01 [code = INFLUENZA VACCINE] Future Scheduled DIABETES: RETINAL EYE [facility] Test EXAM [code = DIABETES: RETINAL EYE EXAM] Future Scheduled DIABETIC FOOT EXAM [facility] Test [code = DIABETIC FOOT EXAM] Future Scheduled URINE MICROALBUMIN [facility] Test [code = URINE MICROALBUMIN] Future Scheduled COVID-19 [facility]ACCINE (1) [facility] [code = COVID-19 VACCINE (1)] Future Scheduled [facility] C [facility] Test (procedure) [code = 077192445] Future Scheduled Screening for [facility] Test malignant neoplasm of cervix (procedure) [code = 444150947] Future Scheduled BREAST CANCER [facility] Test SCREENING [code = BREAST CANCER [...] Department ID 2022-01-14 Outpatient Travis, STLMLC STLC [id number] Common 08:35:01 [facility] 24868 [facility] 2021-11-[address] [facility] [id number] [place] 10:51:[address] [place] [address] 2021-10-16 Outpatient Travis, STLMLC STLC [id number] Common 14:20:00 [facility] 2021-08-20 Outpatient Travis, STLMLC STLC [id number] Common 08:10:01 [facility] 2021-08-16 Outpatient Travis, STLMLC STLC [id number] Common 15:42:00 [facility] 2021-07-10 Outpatient Travis, STLMLC STLC [id number] Common 08:19:00 [facility] 2021-05-08 Outpatient Travis, STLMLC STLC [id number] Common 15:07:00 [facility] 2021-03-29 Outpatient DERESKA, [facility] [id number] [place] 16:38:20 [facility] 2021-03-14 Outpatient ANILA, [facility] [id number] [place] 10:48:45 [facility] 2021-03-14 Outpatient Travis, STLMLC STLC Common 09:24:01 [facility] 2021-03-07 Outpatient Travis, STLMLC STLMLC Common 14:38:44 [facility] 2021-03-07 Outpatient Travis, STLMLC STLMLC Common 14:34:38 [facility] 2021-03-07 Outpatient Travis, STLMLC STLMLC Common 14:19:07 [facility] 2021-03-07 Outpatient Travis, STLMLC STLMLC Common 14:06:31 [facility] 2021-03-07 Outpatient Travis, STLMLC STLMLC Common 14:06:01 Luciano 89987 [facility] 2021-03-07 Outpatient Travis, STLMLC STLMLC Common 14:05:29 Luciano 50061 [facility] 2021-03-07 Outpatient Travis, STLMLC STLMLC Common 13:56:00 [facility] 2021-03-07 Outpatient Travis, STLMLC STLMLC Common 13:49:17 Luciano 69531 [facility] 2021-03-07 Outpatient Travis, STLMLC STLMLC Common 12:29:42 Luciano 66945 [facility] 2021-03-07 Outpatient Travis, STLMLC STLMLC Common 12:27:48 Luciano 71678 [facility] 2021-03-07 Outpatient Travis, STLMLC STLMLC Common 12:27:16 [facility] 2021-03-07 Outpatient Travis, STLMLC STLMLC Common 12:25:19 Luciano 25106 [facility] 2021-03-07 Outpatient Travis, STLMLC STLMLC Common 12:24:57 Luciano 77832 [facility] 2021-03-07 Outpatient Travis, STLMLC STLMLC Common 12:21:52 Luciano 42836 [facility] 2021-03-07 Outpatient Travis, STLMLC STLMLC Common 12:21:15 Luciano 22973 [facility] 2021-03-07 Outpatient Travis, STLMLC STLMLC Common 12:20:49 Luciano 36930 [facility] 2021-03-07 Outpatient Travis, STLMLC STLMLC Common 12:19:53 Luciano 33060 [facility] 2021-03-07 Outpatient Travis, STLMLC STLMLC Common 11:37:00 Luciano 48320 [facility] 2021-03-07 Outpatient Travis, STLMLC STLMLC Common 11:36:58 Luciano 65042 [facility] 2021-03-07 Outpatient Travis, STLMLC STLMLC Common 11:33:09 Luciano 34530 [facility] 2021-03-07 Outpatient Travis, STLMLC STLMLC Common 11:31:11 Luciano 20623 [facility] 2021-03-07 Outpatient Travis, STLMLC STLMLC Common 11:06:28 Luciano 27068 [facility] 2021-01-[address] [facility] [id number] [place] 10:36:54 SHEFALI [facility] 2021-01-[address] [facility] [id number] [place] 09:52:14 SHEFALI [facility] 2020-12-12 Emergency [facility] [id number] Univers 09:13:05 [facility] 2020-11-[address] [facility] [id number] [place] 15:05:59 [facility]ALI [facility] 2020-11-[id number] [place] 14:12:16 SHEFALI [facility] 2020-11-24 [facility] [id number] [place] 13:57:46 SHEFALI [facility] 2020-11-13 [facility] [id number] UT 12:16:17 SHEFALI [facility] 2022-05-31 2022-05-31 Telephone [facility] [id number] [id number] Univers 00:00:00 00:00:00 Submittable 350.1.13.10 it y of [place] 4.2.7.2.686 Lionel as DAMIAN?BLEA [phone] [address] 2022-05-09 2022-05-09 Telephone [facility] [id number] [id number] Univers 00:00:00 00:00:00 [employer] 350.1.13.10 it y of [place] 4.2.7.2.686 Lionel as DAMIAN?BLEA [phone] [address] 2022-04-26 2022-04-26 Outpatient SFA SFA [id number] Lyle 17:19:36 17:19:36 0317 F [place] 2022-04-24 2022-04-24 [facility] [id number] [place] 11:00:00 11:00:00 ANDRESSA [facility] 2022-04-15 2022-04-15 Outpatient SFA SFA [id number] Lyle 15:35:32 15:35:32 0306 F Frank 2022-04-01 2022-04-01 Outpatient SFA SFA [id number] Lyle 15:48:00 15:48:00 0220 F Frank 2022-03-13 2022-03-13 (TEL) STLMLC STLMLC [id number] Co mmon 00:00:00 00:00:00 [facility] 2022-02-18 2022-02-18 (TEL) STLMLC STLMLC [id number] Co mmon 00:00:00 00:00:00 [facility] 2022-02-08 2022-02-08 OFFICE [facility] [id number] Co mmon 00:00:00 00:00:00 VISIT EST Spir it PT LEVEL 3 - [facility] 2022-02-08 2022-02-08 (TEL) [facility] [id number] Co mmon 00:00:00 00:00:00 Spirit [facility] 2022-01-24 2022-01-24 [facility] Fish, 1.2.840.1 [id number] Methodi 06:31:00 23:59:00 Encounter Tuyet H. 12518.1.[address] 3.430.2.7 Hospit a .3.151988 l .8 2022-01-24 2022-01-24 [facility] Fish, 1.2.840.1 [id number] Methodi 06:31:00 23:59:00 Encounter Tuyet H. 55136.1.[address] 3.430.2.7 Hospit a .3.980195 l .8 2022-01-24 2022-01-24 Surgery Fish, 1.2.840.1 [id number] Methodi 09:50:00 11:00:00 Tuyet H. 33626.1.1 654 s t 3.430.2.7 Hospit a .3.082904 l .8 2022-01-24 2022-01-24 Surgery Fish, 1.2.840.1 [id number] 3040 Methodi 09:50:00 11:00:00 Tuyet H. 35330.1.1 654 s t 3.430.2.7 Hospit a .3.369156 l .8 2022-01-24 2022-01-24 Anesthesia Ballivian, 1.2.840.1 [id number] Methodi 08:57:00 10:07:00 Event Aba 79180.1.[address] [place] 3.430.2.7 Hosp ruiz .3.084681 l .8 2022-01-24 2022-01-24 Anesthesia Ballivian, 1.2.840.1 [id number] Methodi 08:57:00 10:07:00 Event [place]a 47304.1.[address] [place] 3.430.2.7 Hosp ruiz .3.624276 l .8 2022-01-24 2022-01-24 Travel 1.2.840.1 1.2.237.648 [id number] Methodi 00:00:00 00:00:[address] 3.430.2.7 0.2.7.3.698 Ho spita .3.798124 084.8 l .8 2022-01-24 2022-01-24 Travel 1.2.840.1 1.2.152.318 6187 211698 Methodi 00:00:00 00:00:[address] 3.430.2.7 0.2.7.3.698 Ho spita .3.910302 084.8 l .8 2022-01-16 2022-01-16 OFFICE STLMLC STLMLC [id number] Co mmon 00:00:00 00:00:00 VISIT [facility] LEVEL 4 [facility] 2022-01-01 2022-01-01 (TEL) STLMLC STLMLC [id number] Co mmon 00:00:00 00:00:00 [facility] 2021-12-21 2021-12-21 (TEL) STLMLC STLMLC [id number] Co mmon 00:00:00 00:00:00 [facility] 2021-12-05 2021-12-[address] [facility] [id number] [place] 14:50:00 14:50:00 ANDRESSA Tagbrand 2021-11-14 2021-11-14 Telephone DARRYN Hinds 1.2.491.596 [id number] Univers 00:00:00 00:00:00 [facility] [employer] 350.1.13.10 it y of [place] 4.2.7.2.686 Lionel as DAMIAN?BLEA [phone] [address] MEDICAL OFFICE BUILDING 2021-10-31 2021-10-31 Office Michael [facility] 1.2.959.684 [id number] [place] 13:30:00 14:24:45 Visit Shefali SUGAR 350.1.13.58 Mikel alth [place] 9.2.7.2.686 [address] [phone] AND 5 WOMENS 2021-10-24 2021-10-24 Procedure Lavern [facility] 1.2.840.114 [id number] [place] 13:40:00 14:27:30 Visit Andressa SUGAR 350.1.13.58 Mikel alth [place] 9.2.7.2.686 [address] 3 [phone] AND 5 WOMENS 2021-10-17 2021-10-17 OFFICE STLMLC STLMLC [id number] Co mmon 00:00:00 00:00:00 VISIT [facility] LEVEL 4 [facility] 2021-10-11 2021-10-11 (TEL) STLMLC STLMLC [id number] Co mmon 00:00:00 00:00:00 [facility] 2021-10-10 2021-10-10 [facility] [id number] Univers 13:30:00 14:23:09 [facility] 2021-10-10 2021-10-10 Office [facility] 1.2.840.114 [id number] Univers 13:30:00 14:23:09 Visit [facility] 350.1.13.10 it y of [place] 4.2.7.2.686 Lionel as DAMIAN?BLEA [phone] Mo kori JOHANNY [address] [place] [address] MEDICAL OFFICE BUILDING 2021-10-09 2021-10-09 (TEL) STLMLC STLMLC [id number] Co mmon 00:00:00 00:00:00 [facility] 2021 2021 (TEL) STLMLC STLMLC [id number] Co mmon 00:00:00 00:00:00 [facility] 2021-08-14 2021-08-14 (TEL) STLMLC STLMLC [id number] Co mmon 00:00:00 00:00:00 [facility] 2021-08-07 2021-08-07 Outpatient R CHAVEZ [facility] [id number] Univers 15:30:00 15:30:00 [facility] 2021-07-23 2021-07-23 Telephone Chavez [facility] [id number] [id number] Univers 00:00:00 00:00:00 [facility] 350.1.13.10 it y of [place] 4.2.7.2.686 Lionel as DAMIAN?BLEA [phone] [address] MEDICAL OFFICE BUILDING 2021-07-18 2021-07-18 OFFICE [facility] [id number] Co mmon 00:00:00 00:00:00 VISIT [facility] LEVEL 4 [facility] 2021-05-29 2021-05-29 Outpatient R CHAVEZ [facility] [id number] Univers 10:30:00 10:30:00 [facility] 2021-05-28 2021-05-28 Orders Doctor AURELIO 1.2.840.114 [id number] Univers 00:00:00 00:00:00 Only Unassigned, BETY 350.1.13.10 [facility] 4.2.7.2.686 Lionel as [phone] [address] 2021-05-25 2021-05-25 (TEL) [facility] [id number] Co mmon 00:00:00 00:00:00 [facility] 2021-04-16 2021-04-[address] Spence [facility] 1.2.840.1 14 [id number] [place] 00:00:00 00:00:00 Ct Spence [place]GAR 350.1.13.58 [facility] 9.2.7.2.686 [address] 1 [phone] AND 2 WOMENS 2021-04-03 2021-04-03 Outpatient R CHAVEZ [facility] [id number] Univers 10:00:00 10:00:00 [facility] 2021-04-03 2021-04-03 OFFICE [facility] [id number] Co mmon 00:00:00 00:00:00 VISIT Spirit JEANE PT - CHI LEVEL 4 [facility] 2021-03-26 2021-03-26 Emergency X [facility] ERT [id number] Univers 12:42:00 13:51:00 RASHMI ity of [facility] 2021-03-26 2021-03-26 Emergency [facility] 1.2.525.577 [id number] Univers 12:42:00 13:51:00 Rashmi PERRIN 350.1.13.10 i ty [facility] 4.2.7.2.686 [facility] [phone] [facility] [address] 2021-03-26 2021-03-26 (TEL) [facility] [id number] Co mmon 00:00:00 00:00:00 Spirit - [facility]I [facility] 2021-03-26 2021-03-26 Orders Doctor AURELIO 1.2.840.114 [id number] Univers 00:00:00 00:00:00 Only Unassigned, BETY 350.1.13.10 ity of [place] [facility] 4.2.7.2.686 [facility] [phone] [facility] [address] 2021-03-14 2021-03-[address] Spence [facility] 1.2.840.1 14 [id number] [place] 00:00:00 00:00:00 Ct Spence 350.1.13.58 Health [place] 9.2.7.2.686 [address] 6 [phone] AND 2 WOMENS 2021-03-12 2021-03-[address] Spence [facility] 1.2.840.1 14 [id number] [place] 00:00:00 00:00:00 Ct Spence [place] 350.1.13.58 Health [place] [facility] 9.2.7.2.686 [address] 8 [phone] AND 2 WOMENS 2021-03-09 2021-03-[address] Spence [facility] 1.2.840.1 14 [id number] [place] 00:00:00 00:00:00 Ct Spence [place]AR 350.1.13.58 [facility] 9.2.7.2.686 [address] 1 [phone] AND 2 WOMENS 2021-03-07 2021-03-07 Outpatient R CHAVEZ [facility] [id number] Univers 14:30:00 14:30:00 BRODY [facility] 2021-03-06 2021-03-06 Telephone Chavez [facility] 1.2.963.915 [id number] Univers 00:00:00 00:00:00 [facility] 350.1.13.10 it y of [place] 4.2.7.2.686 Lionel as DAMIAN?BLEA [phone] [address] MEDICAL OFFICE BUILDING 2021-03-05 2021-03-05 OFFICE STLMLC STLMLC [id number] Co mmon 00:00:00 00:00:00 VISIT Spirit ESTAB PT - CHI LEVEL 4 [facility] 2021-03-05 2021-03-05 SUB ANNUAL STLMLC STLMLC [id number] Common 00:00:00 00:00:00 MCR Spirit WELLNESS - CHI VISIT [facility] 2021-03-01 2021-03-01 (TEL) STLMLC STLMLC [id number] Co mmon 00:00:00 00:00:00 [facility] 2021-02-28 2021-02-28 (TEL) STLMLC STLMLC [id number] Co mmon 00:00:00 00:00:00 [facility] 2021-02-27 2021-02-27 (TEL) STLMLC STLMLC [id number] Co mmon 00:00:00 00:00:00 [facility] 2021-02-26 2021-02-26 (TEL) STLMLC STLMLC [id number] Co mmon 00:00:00 00:00:00 [facility] 2021-01-03 2021-01-03 (TEL) STLMLC STLMLC [id number] Co mmon 00:00:00 00:00:00 [facility] 2020-12-27 2020-12-27 (TEL) STLMLC STLMLC [id number] Co mmon 00:00:00 00:00:00 [facility] 2020-12-18 2020-12-18 Hospital Radiology [facility] 1.2.840.114 [id number] Univers 10:28:59 23:59:00 Encounter [place] 350.1.13.10 ity of [place] 4.2.7.2.686 [place] [phone] [facility] [address] [place] 2020-12-18 2020-12-18 Outpatient R RADIOLOGY [facility] [id number] Univers 00:00:00 23:59:00 ity of [facility] 2020-12-18 2020-12-18 Orders Doctor AURELIO 1.2.840.114 [id number] Univers 00:00:00 00:00:00 Only Unassigned, BETY 350.1.13.10 ity of [place] [facility] 4.2.7.2.686 Lionel as [phone] [address] 2020-12-08 2020-12-08 Orders Doctor AURELIO 1.2.840.114 [id number] Univers 00:00:00 00:00:00 Only Unassigned, BETY 350.1.13.10 ity of [place] [facility] 4.2.7.2.686 Lionle as [phone] [address] 2020-12-07 2020-12-07 OFFICE STLMLC STLMLC [id number] Co mmon 00:00:00 00:00:00 VISIT [facility] LEVEL 4 [facility] 2020-12-07 2020-12-07 (TEL) STLMLC STLMLC [id number] Co mmon 00:00:00 00:00:00 [facility] 2020-12-06 2020-12-06 (TEL) STLMLC STLMLC [id number] Co mmon 00:00:00 00:00:00 [facility] 2020-12-05 2020-12-05 (TEL) STLMLC STLMLC [id number] Co mmon 00:00:00 00:00:00 [facility] 2020-12-04 2020-12-04 (TEL) [facility] [id number] Co mmon 00:00:00 00:00:00 [facility] 2020-12-04 2020-12-04 [facility]TEL) [facility] [id number] Co mmon 00:00:00 00:00:00 [facility] 2020-12-03 2020-12-03 Emergency [facility], [facility] 1.2.998.292 [id number] [facility] 14:18:00 16:20:00 Greg Perrin 350.1.13.10 ity of [place] 4.2.7.2.686 [facility] [phone] [facility] [address] 2020-12-03 2020-12-03 Orders Doctor CAREY 1.2.840.114 [id number] Univers 00:00:00 00:00:00 Only Unassigned, BETY 350.1.13.10 [facility] 4.2.7.2.686 [facility] [phone] [facility] [address] 2020-11-27 2020-11-27 Orders Michael [facility] [id number] [place] 00:00:00 00:00:00 Only Shefali SUGAR [id number] alth [facility] [id number] [address] 1 [phone] AND 5 WOMENS 2020-11-27 2020-11-[address] Spence [facility] [id number] [place] 00:00:00 00:00:00 Ct Spence [id number] [facility] [place] [facility] [id number] [address] 2 [phone] AND 2 WOMENS 2020-11-24 2020-11-24 Office Michael [facility] [id number] [place] 14:14:20 15:06:05 Visit Shefali SUGAR [id number] alth [place] [facility] [id number] [address] 3 [phone] AND 5 WOMENS 2020-11-10 2020-11-10 (TEL) STLMLC STLMLC [id number] Co mmon 00:00:00 00:00:00 [facility] 2020-10-26 2020-10-26 OFFICE STLMLC STLMLC [id number] Co mmon 00:00:00 00:00:00 VISIT [facility] LEVEL 4 [facility] 2020-10-26 2020-10-26 (TEL) STLMLC STLMLC [id number] Co mmon 00:00:00 00:00:00 [facility] 2020-10-12 2020-10-12 Outpatient STLMLC STLMLC [id number] Common 00:00:00 00:00:00 [facility] 2020-09-28 2020-09-28 Documentat Nida Wheeler 1.2.840.1 [id number] Methodi 00:00:00 00:00:[address] 3.430.2.7 Hospit a .3.250458 l .8 2020-08-16 2020-08-16 [facility] 1.2.990.757 [id number] Univers 00:00:00 00:00:00 Adriana Perrin 350.1.13.10 jacinto luther [facility] 4.2.7.2.686 Kassidy hrao Professio [phone] [address] 2020-07-19 2020-07-19 Out[facility] [id number] [facility] 09:00:00 09:00:00 ADRIANA pierce [facility] 2020-06-22 2020-06-22 Office Nida Wheeler 1.2.840.1 [id number] Methodi 09:54:22 10:40:[address] 3.430.2.7 Hospit a .3.656895 l .8 2020-06-22 2020-06-22 Travel 1.2.840.1 1.2.502.400 [id number] Methodi 00:00:00 00:00:[address] 3.430.2.7 0.2.7.3.698 Ho spita .3.150965 084.8 l .8 2020-06-21 2020-06-21 Office Adriana Carney [facility] 1.2.840.11 [id number] Univers 14:30:27 16:08:05 Visit Mayo Goldie Antony Perrin 350.1.13.10 itphoenix [facility] 4.2.7.2.686 [place] Profess[place] [phone] Mo dical [address] 2020-06-21 2020-06-21 Outpatient R [facility] [id number] Univers 15:00:00 15:00:00 GOLDIE pierce [facility] 2020-06-21 2020-06-21 Telephone [facility] 1.2.840.114 [id number] [facility] 00:00:00 00:00:00 Adriana Perrin 350.1.13.10 i ty [facility] 4.2.7.2.686 [place] Profess[place] [phone] Mo dical nal [address] [place] [address] 2020-06-01 2020-06-01 Outpatient STLMLC STLMLC [id number] Common 00:00:00 00:00:00 [facility] 2020-06-01 2020-06-01 Outpatient STLMLC STLMLC [id number] Common 00:00:00 00:00:00 [facility] 2020-05-30 2020-05-30 Travel 1.2.840.1 1.2.842.909 [id number] Methodi 00:00:00 00:00:[address] 3.430.2.7 0.2.7.3.698 Ho spita .3.535640 084.8 l .8 2020-05-26 2020-05-26 Outpatient STLMLC STLMLC [id number] Common 00:00:00 00:00:00 [facility] 2020-05-17 2020-05-17 Outpatient STLMLC STLMLC [id number] Common 00:00:00 00:00:00 [facility] 2020-05-04 2020-05-05 Emergency Kingsley Corado 1.2.840.1 [id number] Methodi 13:01:00 16:43:00 Chloe Minor [address]30[address]1.[address] 3.430.2.7 Hospit a .3.518432 l .8 2020-05-04 2020-05-04 Travel 1.2.840.1 1.2.573.615 [id number] Methodi 00:00:00 00:00:[address] 3.430.2.7 0.2.7.3.698 Ho spita .3.448523 084.8 l .8 2020-04-14 2020-04-14 Outpatient STLMLC STLMLC [id number] Common 00:00:00 00:00:00 [facility] 2020-04-10 2020-04-10 Outpatient STLMLC STLMLC [id number] Common 00:00:00 00:00:00 [facility] 2020-03-31 2020-03-31 Outpatient STLMLC STLMLC [id number] Common 00:00:00 00:00:00 [facility] 2020-03-23 2020-03-23 Outpatient STLMLC STLMLC [id number] Common 00:00:00 00:00:00 [facility] 2020-03-23 2020-03-23 Outpatient STLMLC STLMLC [id number] Common 00:00:00 00:00:00 [facility] 2020-03-14 2020-03-14 Outpatient STLMLC STLMLC [id number] Common 00:00:00 00:00:00 [facility] 2020-03-07 2020-03-07 Outpatient STLMLC STLMLC [id number] Common 00:00:00 00:00:00 [facility] 2020-02-28 2020-02-28 Outpatient STLMLC STLMLC [id number] Common 00:00:00 00:00:00 [facility] 2020-02-24 2020-02-24 Outpatient STLMLC STLMLC [id number] Common 00:00:00 00:00:00 [facility] 2020-02-23 2020-02-23 Outpatient STLMLC STLMLC [id number] Common 00:00:00 00:00:00 [facility] 2020-02-23 2020-02-23 Outpatient STLMLC STLMLC [id number] Common 00:00:00 00:00:00 [facility] 2019-11-24 2019-11-25 Outpt Diag nullFlavo [facility] [id number] Memoria 14:28:00 04:59:00 Services r Outpatient 03 l Imaging [facility] 2019-11-24 2019-11-25 Outpt Diag nullFlavo [facility] [id number] Memoria 14:28:00 04:59:00 Services r Outpatient 03 l Imaging [facility] 2019-11-24 2019-11-24 Outpatient Etelvina, MHOIP MHOIP [id number] 09:28:00 23:59:00 Rena Clements 2019-11-11 2019-11-11 Outpatient STLMLC STLMLC [id number] Common 00:00:00 00:00:00 [facility] 2019-11-02 2019-11-02 Outpatient STLMLC STLMLC [id number] Common 00:00:00 00:00:00 [facility] 2019-11-02 2019-11-02 Outpatient STLMLC STLMLC [id number] Common 00:00:00 00:00:00 [facility] 2019-10-27 2019-10-27 [facility] [id number] Common 14:10:00 14:10:[address] [facility] 2019-10-27 2019-10-27 [facility] [id number] Common 10:59:00 10:59:[address] [facility] 2019-10-12 2019-10-12 [facility] [id number] Common 08:20:00 08:20:[address] [facility] 2019-09-22 2019-09-22 [facility] [id number] Common 08:30:00 08:30:[address] [facility] 2019-08-10 2019-08-10 [facility] [id number] Common 13:30:00 13:30:[address] [facility] 2019-04-02 2019-04-02 [facility] [id number] Common 15:07:00 15:07:[address] [facility] 2019-03-16 2019-03-16 [facility] [id number] Common 17:04:00 17:04:[address] [facility] 2018-12-03 2018-12-03 [facility] [id number] Common 16:41:00 16:41:[address] [facility] 2018-11-18 2018-11-18 [facility] [id number] Common 08:00:00 08:00:[address] [facility] 2018-07-22 2018-07-22 [facility] [id number] Common 08:30:00 08:30:[address] [facility] 2018-06-10 2018-06-10 [facility] [id number] Common 09:53:00 09:53:[address] [facility] 2018-03-23 2018-03-23 [facility] [id number] Common 14:00:00 14:00:[address] [facility] 2018-03-19 2018-03-19 [facility] [id number] Common 10:45:00 10:45:[address] [facility] 2017-11-10 2017-11-10 [facility] [id number] Common 10:15:00 10:15:[address] [facility] 2017-11-06 2017-11-06 [facility] [id number] Common 08:00:00 08:00:[address] [facility] 2017-09-23 2017-09-23 [facility] [id number] Common 16:07:00 16:07:[address] [facility] 2017-09-03 2017-09-03 Appointmen HALHUNGOK, UTP UroGynecolo 4 [id number] [place] 11:00:00 11:00:00 t; KARISSA CLEANING gy Center Ph [facility] ans KARISSA CLEANING 2017-08-27 2017-08-27 Appointmen HALBROOK, UTP UroGynecolo 4 [id number] [place] 14:10:00 14:10:00 t; KARISSA CLEANING gy Center Ph [facility] ans KARISSA CLEANING 2017-08-21 2017-08-21 Appointmen HALBROOK, UTP UroGynecolo 4 [id number] [place] 10:10:00 10:10:00 t; KARISSA CLEANING gy Center Ph [facility] ans KARISSA CLEANING 2017-08-14 2017-08-14 Appointmen HALBROOK, UTP UroGynecolo 4 [id number] [place] 11:00:00 11:00:00 t; KARISSA CLEANING gy Center Ph [facility] ans KARISSA CLEANING 2017-07-31 2017-07-31 Appointmen HALBROOK, UTP UroGynecolo 4 [id number] [place] 14:10:00 14:10:00 t; KARISSA CLEANING gy Center Ph [facility] ans KARISSA CLEANING 2017-07-24 2017-07-24 Appointmen HALBROOK, UTP UroGynecolo 4 [id number] [place] 13:20:00 13:20:00 t; KARISSA CLEANING gy Center Ph sadi HOOPER [facility] mar KARISSA CLEANING 2017-07-17 2017-07-17 Appointmen BRADFORDHUNGJARRETT, UTP UroGynecolo 4 [id number] [place] 14:10:00 14:10:00 t; KARISSA CLEANING gy Center sadi HOOPER [facility] mar KARISSA CLEANING 2017-07-03 2017-07-03 Appointmen UROGYN1, [facility] Women's [id number] [place] 09:00:00 09:00:00 t; [facility] Physic i UROGYN1, [facility] DERESKA 2017-06-26 2017-06-[facility], [facility] UroGynecolo 4 [id number] [place] 09:00:00 09:00:00 t; KARISSA CLEANING [facility] KARISSA CLEAN[facility] 2017-06-25 2017-06-25 Out[facility] [id number] Common 09:30:00 09:30:00 t [facility] [employer] [facility] 2017-06-19 2017-06-19 Appointguerita HOOPER, UTP UroGynecolo 4 [id number] [place] 15:20:00 15:20:00 t; KARISSA CLEANING [facility] KARISSA CLEANING 2017-06-12 2017-06-12 Appointguerita FELDERHUNGJARRETT, UTP UroGynecolo 4 [id number] [place] 13:20:00 13:20:00 t; KARISSA CLEANING gy Center [facility] K[facility]SA [facility] 2017-06-09 2017-06-09 [facility] HALROCHELLE, [facility] UTP [id number] [place] 09:20:00 09:20:00 t; KARISSA CLEANING Phys ici HALHUNGOK, ans KARISSA CLEANING 2016-12-19 2016-12-19 Appointmen MICHAEL, UTP UTP [id number] [place] 10:10:00 10:10:00 t; KARISSA CLEANING Phys ici HALROCHELLE, ans KARISSA CLEANING 2016-11-28 2016-11-28 Appointmen MICHAEL, UTP UTP [id number] [place] 10:10:00 10:10:00 t; KARISSA CLEANING Phys mar Abbott NP 2016-09-12 2016-09-12 [facility] [id number] [place] 13:20:00 13:20:00 t; KARISSA CLEANING Phys mar Abbott NP 2016-04-01 2016-04-01 Emergency [facility]Flavo [facility] [id number] Memoria 17:43:00 23:41:00 r [place] 02 l [facility] 2016-04-01 2016-04-01 Emergency [facility]Flavo [facility] [id number] Memoria 17:43:00 23:41:00 r [place] 02 l [facility] 2016-04-01 2016-04-01 Outpatient RutherfordJulio C SL MHSL [id number] 11:43:00 17:41:00 Aaronrasheed 2015-11-30 2015-11-30 [facility] [id number] [place] 09:00:00 09:00:00 t; KARISSA CLEANING Phys mar Abbott NP 2015-10-20 2015-10-20 [facility] [id number] [place] 10:10:00 10:10:00 t; Preeti CARTER ans NINA, M.D. 2015-09-21 2015-09-21 [facility] UTP [id number] [place] 13:00:00 13:00:00 t; Preeti CARTER ans NINA, M.D. 2015-08-10 2015-08-10 OBS Day [facility]Flavo [facility] [id number] Memoria 12:24:00 19:42:00 Surgery r [place] 00 l [facility] 2015-08-10 2015-08-10 OBS Day [facility]Flavo [facility] [id number] Memoria 12:24:00 19:42:00 Surgery r [place] 00 l [facility] 2015-08-10 2015-08-10 Outpatient CASSIE PuckettSL SL [id number] 07:24:00 14:42:00 Andressa Guerrero 2015-08-10 2015-08-10 [facility] UTP [id number] [place] 09:30:00 09:30:00 t; Preeti CARTER ans NINA, M.D. 2015-08-02 2015-08-02 [facility] [id number] [place] 08:30:00 08:30:00 t; Preeti CARTER ans NINA, M.D. 2015-07-05 2015-07-05 [facility] UTP [id number] [place] 08:30:00 08:30:00 t; Preeti CARTER ans NINA, M.D. 2015-04-28 2015-04-29 Outpt Diag nullFlavo [facility] [id number] Memoria 15:30:00 04:59:00 Services r Outpatient 02 l Imaging - Randy n Gosia 2015-04-28 2015-04-29 Outpt Diag nullFlavo [facility] [id number] Memoria 15:30:00 04:59:00 Services r Outpatient 02 l Imaging - Randy n Gosia 2015-04-28 2015-04-28 Outpatient Lavern, 2.16.840. 2.16.840.1. [id number] 10:30:00 23:59:00 Andressa [id number]. 857656.3.61 02 Yolanda 3.615.101 5.101 2011-09-02 2011-09-02 [facility] [id number] Memoria 08:48:00 08:48:00 00 antony English 2011-09-02 2011-09-02 OD FAY IE [id number] Memoria 08:48:00 08:48:00 00 antony English Results Test Description Test Time Test Comments Results Result Comments Source CULTURE, URINE 2022-04-18 SPECIMEN NUMBER: 11:58:21 [id number] CULTURE, URINE SPECIMEN NUMBER: [id number] SPECIMEN COMMENT: URINE SOURCE: URINE REPORT STATUS: FINAL FINAL REPORT: 04/18/2022 10-50,000 CFU/ML UROGENITAL ENZO PRESENT NO COMMON PATHOGENS [facility] has important pathology staff changes effective 04/10/2022. New pathology staff will provide uninterrupted, excellent patient care and clinical consultation. See URL: [email or web address]. UNLESS OTHERWISE INDICATED, ALL TESTING PERFORMED AT [facility]IES, [facility]. [address] [place] [address] 07772 VIDEOTAPE EDITOR: LIBIA HEMPHILL M.D. CLIA NUMBER [id number] [place]. [id number] CULTURE, URINE 2022-04-04 SPECIMEN NUMBER: 16:03:59 [id number] CULTURE, URINE SPECIMEN NUMBER: [id number] SOURCE: URINE REPORT STATUS: FINAL ISOLATE NUMBER [...] nalis and Trichomonas vaginalis nucle ic acid. [facility] has important patho logy staff changes effective 04/10. New pathology staff will provide uninterrupted, excellent patient care and clinical co nsultation. See URL: [email or web address]. UNLESS OTHERWISE INDIC ATED, ALL TESTING PERFORMED AT [facility], [facility]. [address] [place] [address] 7875 4 VIDEOTAPE EDITOR: ALEX LIAO M.D. CLIA NUMBER [id number] [place]. [id number] POC [id number] 14:39:00 Test Item Value Reference Range Interpretation Comments POC glucose (test code = 237 mg/dL 65-99 H Ope rator Name: [facility] 24245-0) AdamDevice ID: [id number] able: [facility] Notified information assistant Interpretation (test Abnormal code = 07036-1) [facility] vynryyd2562-07-26 14:39:00 Test Item Value Reference Range Interpretation Comments POC glucose (test code = 237 mg/dL 65-99 H Ope rator Name: [facility] 96890-3) AdamDevice ID: [id number] able: TM Notified information assistant Interpretation (test Abnormal code = 08914-3) [facility]2022-12-15 14:39:00 Test Item Value Reference Range Interpretation Comments POC glucose (test code = 237 mg/dL 65-99 H Ope rator Name: [facility] 77261-2) AdamDevice ID: [id number] able: TM Notified information assistant Interpretation (test Abnormal code = 58424-3) [facility]2022-12-15 14:39:00 Test Item Value Reference Range Interpretation Comments POC glucose (test code = 237 mg/dL 65-99 H Ope rator Name: [facility] 02377-3) AdamDevice ID: [id number] able: TM Notified information assistant Interpretation (test Abnormal code = 52391-0) [facility]2022-12-15 14:39:00 Test Item Value Reference Range Interpretation Comments POC glucose (test code = 237 mg/dL 65-99 H Ope rator Name: [facility] 20403-9) AdamDevice ID: [id number] able: TM Notified information assistant Interpretation (test Abnormal code = 51879-0) [facility]2022-12-15 14:39:00 Test Item Value Reference Range Interpretation Comments POC glucose (test code = 237 mg/dL 65-99 H Ope rator Name: [facility] 73683-8) AdamDevice ID: [id number] able: TM Notified information assistant Interpretation (test Abnormal code = 57926-7) [facility]2022-12-15 14:39:00 Test Item Value Reference Range Interpretation Comments POC glucose (test code = 237 mg/dL 65-99 H Ope rator Name: [facility] 90619-1) AdamDevice ID: [id number] able: TM Notified information assistant Interpretation (test Abnormal code = 84591-6) [facility]2022-12-15 14:39:00 Test Item Value Reference Range Interpretation Comments POC glucose (test code = 237 mg/dL 65-99 H Ope rator Name: [facility] 58591-7) AdamDevice ID: [id number] able: [facility] Notified information assistant Interpretation (test Abnormal code = 33059-5) [facility] urinalysis dipstick manually rhexaxdd4141-74-53 19:16:00 Test Item Value Reference Range Interpretation Comments Glucose, UA (test code 1000 mg/dL Negative A = 6225005) Bilirubin, UA (test Negative Negative code = 6093835) Ketones, Urine (test Negative Negative, Trace code = 24011-2) Spec Grav, UA (test code = 309570258) Blood, UA (test code = Mod 185214590) pH, UA (test code = 5.0-8.5 4098964) Protein, UA (test code Negative Negative, Trace, = 8464119) 200(+2)mg/dL, 15/mg/dL Urobilinogen, UA (test See_Comment [Aut omated code = 6131127) message] The system which generated this result transmitted reference range : 0.2. The refere nce range was not u sed to interpret th is result as normal/abnormal . Nitrite, UA (test code Negative Negative, Trace = 5884207) Leukocytes, UA (test Negative Negative, Trace code = 1946593) Lab Interpretation Abnormal (test code = 27299-4) [facility] urinalysis dipstick manually nanogulf1826-85-11 18:43:00 Test Item Value Reference Range Interpretation Comments Glucose, UA (test code 500 mg/dL Negative A = 0095812) Bilirubin, UA (test Negative Negative code = 2235518) Ketones, Urine (test Negative Negative, Trace code = 56483-8) Spec Grav, UA (test code = 230514303) Blood, UA (test code = Trace 600272919) pH, UA (test code = 5.0-8.5 8790994) Protein, UA (test code Negative Negative, Trace, = 4316407) 200(+2)mg/dL, 15/mg/dL Urobilinogen, UA (test See_Comment [Aut omated code = 2176180) message] The system which generated this result transmitted reference range : 0.2. The refere nce range was not u sed to interpret th is result as normal/abnormal . Nitrite, UA (test code Negative Negative, Trace = 8205090) Leukocytes, UA (test Negative Negative, Trace code = 2987696) Lab Interpretation Abnormal (test code = 92912-7) [facility] HEMOGLOBIN A1C [id number] 18:23:00 Test Item Value Reference Range Interpretation Comments POCT HBA1C (test code = 4548-4) 14 % 4-6 A Lab Interpretation (test code = Abnormal 99021-9) [facility] HEMOGLOBIN A1C [id number] 18:23:00 Test Item Value Reference Range Interpretation Comments POCT HBA1C (test code = 4548-4) 14 % 4-6 A Lab Interpretation (test code = Abnormal 87846-1) [facility] 12 zsrr1836-50-09 00:09:04 Test Item Value Reference Range Interpretation Comments Ventricular rate (test code = 253) Atrial rate (test code = 255) AL interval (test code = 266) QRSD interval [...] evident in Lateral leads- [facility], (w Contrast, Strain and 3D if needed)2020-05-05 21:56:13 Test Item Value Reference Range Interpretation Comments AoV Area, Vmax (test 3.00 cm2 code = 2063425357) AoV Area, VTI (test 2.90 cm2 code = 7726641365) AoV Mean PG (test code mmHg = 7189498671) AoV Peak PG (test code mmHg = 5750848787) AoV Vmax (test code = 1.31 m/s 0839850927) AoV VTI (test code = 0.26 m 8967300488) IVS,d (test code = 1.03 cm 3042613293) IVS/LVPW,2D (test code = 9774836613) Left Atrium Dimension 4.40 cm Anterior (test code = 2238059179) LV,d (test code = 5.15 cm 7468405094) LV EF,2D (test code = 55.90 % 9543744663) LV,s (test code = 3.92 cm 7614306974) LVOT area (test code = 3.14 cm2 7623793331) LVOT Diam,S (test code 2.00 cm = 5440942727) LVOT Vmax (test code = 1.25 m/s 8987923126) LVOT VTI (test code = 0.24 m 2641013277) LVPWD,d (test code = 0.86 cm 1160045611) PV Pk Grad (test code = mmHg 6261013262) PV VMAX (test code = 0.90 m/s 6126805076) RVOT Vmax (test code = 0.78 m/s 4639689980) TR Vpeak (test code = 2.34 mm/s 7925146509) MV E A ratio (test code = 1379614459) TR pk grad (test code = mmHg 9002226627) MR Vmax (test code = 4.27 m/s 0802300350) MR peak grad (test code mmHg = 0264517695) E wave decelartion time msec (test code = 7162753134) MV Peak A Sam (test 0.87 m/s code = 7103114943) MV valve area p 1/2 3.17 cm2 method (test code = 6969402966) MV Peak E Sam (test 0.83 m/s code = 8295766146) MV stenosis pressure 69.31 ms 1/2 time (test code = 5450376840) LVOT stroke volume 0.75 cm3 (test code = 9101631088) AV LVOT peak gradient mmHg (test code = 6920541617) Ao Root,d,2D (test code 3.00 cm = 8438576073) LV SYS VOL (test code = 66.72 ml 9524564421) LV LICONA VOL (test code 126.64 ml = 1662103364) LV SV Teich 2D (test 59.92 ml code = 3772419047) LV Vol s Teich PSAX 66.72 ml (test code = 9772356744) RVOT pk grad (test code mmHg = 0106011542) AoV Vmn (test code = 6235273651) LV FS Teich 2D (test code = 1205788991) MV AE ratio (test code = 5031314906) LV FS Cube 2D (test code = 1040295014) LVOT Vmn (test code = 3475177745) Aov area Vmn (test code 2.80 cm2 = 3951868781) LVOT mean grad (test mmHg code = 2935528669) MAX Pred HR (test code = 9219923647) 85 of MPHR (test code = 9897395625) Ao d LA s ratio (test code = 4461202713) Calc MPHR (test code = bpm 5257143963) LV SV Cube 2D (test 76.35 ml code = 1546904608) LV vol d cube 2D (test 136.59 ml code = 6043708732) LV vol s cube 2D (test 60.24 ml code = 0892605046) MV Decel slope (test 3.45 m/s2 code = 0376408565) Pred Exer Dur R1 (test code = 3364681648) Pred METS R1 (test code = 7594724668) Velocity Ratio (V1/V2) 0.95 m/s (test code = 4689) EF (test code = 47.32 % 4186780902) E/A ratio (test code = 0207730525) LVOT VTI (CM) (test 24.00 cm code = 2168212912) MARIOLA (test code = MARIOLA) Normal left ventricular size and function with an EF~ 55% to 60%.Normal right ventricular size and function.Structurally normal cardiac valves.Mild mitral regurgitation. Left atrial enlargement. Normal pericardium with no effusion.Grade [address] [facility] Brain W Wo Nqihkcwt3517-16-45 18:34:06EXAM: MRI BRAIN W WO CONTRAST CLINICAL [...] is no enhancing lesion in the brain. [id number] Interface, Radiology Results Incoming - 05/05/2020 1:37 [...] There is no enhancing lesion in the brain.[id number] HospitalUrine temryto8036-54-96 20:46:09 Test Item Value Reference Range Interpretation Comments Urine culture (test SEE COMMENT Bacteriu summer screen code = 4254410) negative. [facility] Wo Avrkuvvk0667-58-74 19:49:34EXAMINATION: CT ANGIOGRAM HEAD W WO CONTRAST [...] occlusion or aneurysm. 1M2RAD_PS01Hm Interface, Radiology ResultsIncoming 05/04/2020 2:52 PM CDT EXAMINATION: CT ANGIOGRAM [...] occlusion or aneurysm.1M2RAD_PS01[facility] Neck W Wo Ireyrxfn1764-64-83 19:48:26 EXAMINATION: CT ANGIOGRAM NECK W WO [...] criteriaVertebral artery patency.1M2RAD_PS01[facility] HospitalCT Stroke Brain Wo Npjmgegt0612-32-61 19:42:38EXAMINATION: CT STROKE BRAIN WO CONTRAST CLINICAL [...] 1441 hours on 05/04/2020 who verbalized understanding. [facility]- [id number] Interface, Radiology Results - 05/04/2020 2:45 PM CDT EXAMINATION: CT STROKE BRAIN WO CONTRASTCLINICAL HISTORY: STROKE, Sudden vision loss in the left eyeCOMPARISON: None.TECHNIQUE: Noncontrast head CT performed using radiation dose reduction techniques. Technical factors areevaluated and adjusted to ensure appropriate moderation of exposure. Automated dose management techno logy is applied to adjust radiation exposure while achieving a diagnostic quality image. FINDINGS:Noacute intra or extra-axial hemorrhage identified. The cavanaugh-white matter differentiation is preserved. The basal ganglia, thalami, midbrain, cee and cervicomedullary junction are unremarkable. No mass,mass effect, or midline shift is seen. Ventricles [...] at 1441 hours on 05/04/2020 who verbalized understanding.[id number]] CULTURE, URINE, [id number] 14:25:01 Test Item Value Reference Range Interpretation Comments ORGANISM (test Escherichia coliEnterococcus code = 699-9) Species FINAL REPORT 50,000 - 100,000 CFU/mL (test code = Escherichia coli 10,000 - FINAL REPORT) 50,000 CFU/mL EnterococcusSpecies 10,000 - 50,000 CFU/mL [facility][H] [id number] 14:25:01 Test Item Value Reference Range Interpretation Comments ORGANISM (test code = Enterococcus 699-9) Species Ampicillin (test code - S = Ampicillin) Levofloxacin (test - S code = Levofloxacin) Nitrofurantoin (test - S code = Nitrofurantoin) Tetracycline (test - S code = Tetracycline) Vancomycin (test code SEE NOTES S S= Latoya ceptible, = Vancomycin) R= Resistant, I= Intermediate, N/A= Not Applicable [facility][H] [id number] 14:25:01 Test Item Value Reference Range Interpretation [...] 2+ A NITRITE; Normal (test code = 58314-1) neg N UROBILINOGEN; Normal (test code = 0.2 N 60994-3) PROTEIN; Normal (test code = 61942-8) neg N pH (test code = pH) 6.5 N URINE BLOOD; Abnormal (test code = trace A 53016-7) SPECIFIC GRAVITY; Normal (test code = 1.020 N 2965-2) KETONES; Normal (test code = 95777-8) neg N BILIRUBIN; Normal (test code = 53160-7) neg N GLUCOSE; Normal (test code = 1547-9) neg N [facility][H] CULTURE, URINE, [id number] 15:37:01 Test Item Value Reference Range Interpretation Comments ORGANISM (test code = Escherichia coli 699-9) FINAL REPORT (test 50,000 - 100,000 CFU/mL code = FINAL REPORT) Escherichia coli . 50,000 - 100,000 CFU/mL [facility][H] [id number] 15:37:01 Test Item Value Reference Range Interpretation [...] 2+ A NITRITE; Normal (test code = 06591-3) NEG N UROBILINOGEN; Normal (test code = 0.2 N 78825-1) PROTEIN; Abnormal (test code = 38299-1) 30 MG A pH (test code = pH) 5.5 N URINE BLOOD; Abnormal (test code = 2+ A 14181-0) SPECIFIC GRAVITY; Normal (test code = 1.030 N 2965-2) KETONES; Normal (test code = 11510-9) NEG N BILIRUBIN; Normal (test code = 15290-1) NEG N GLUCOSE; Normal (test code = 1547-9) NEG N [facility][O] Urine Dipstick (In Office)2017-06-09 10:06:00 Test Item Value Reference Range Interpretation Comments LEUKOCYTES (test code = LEUKOCYTES) 2+ A NITRITE; Normal (test code = 23284-9) NEG N UROBILINOGEN; Normal (test code = 0.2 N 84362-4) PROTEIN; Normal (test code = 36230-5) NEG N pH (test code = pH) 7.0 N URINE BLOOD; Abnormal (test code = 2+ A 79808-4) SPECIFIC GRAVITY; Normal (test code = 1.010 N 2965-2) KETONES; Normal (test code = 40123-1) NEG N BILIRUBIN; Normal (test code = NEG N 06766-1) GLUCOSE; Abnormal (test code = 1547-9) 250 MG A [facility]] BV/ VAGINITIS PANEL DNA PROBE [id number] 09:20:01 Test Item Value Reference Range Interpretation Comments Trichomonas vaginalis DNA (test code Negative Negative = 08944-2) Gardnerella vaginalis DNA; Abnormal Positive Negative A (test code = 6410-5) Jacques sp. DNA; Abnormal (test code Positive Negative A = 56668-4) [facility]] CULTURE, URINE, [id number] 09:20:01 Test Item Value Reference Range Interpretation Comments ORGANISM (test code = Escherichia coli 699-9) FINAL REPORT (test >100,000 CFU/mL code = FINAL REPORT) Escherichia coli 10,000 - 50,000 CFU/mL [facility][] [id number] 09:20:01 Test Item Value Reference Range Interpretation Comments ORGANISM (test code Escherichia coli = 699-9) Ciprofloxacin (test .75 S code = Ciprofloxacin) Levofloxacin (test 1.5 S code = Levofloxacin) Trimethoprim/Sulfame 32 R thoxazole (test code = Trimethoprim/Sulfame thoxazole) Ceftriaxone (test .094 S S= Suscept ible, code = Ceftriaxone) R= Resis tant, I= Intermediate, N/A= Not Applicable [facility]2017-02-20 20:20:00 Test Item Value Reference Range Interpretation Comments Eos BF (test code = Eos BF) 0 [facility]2017-02-20 20:20:00 Test Item Value Reference Range Interpretation Comments Macrophage BF (test code = Macrophage 0 BF) [facility]2017-02-20 20:20:00 Test Item Value Reference Range Interpretation Comments Color BF (test code = Yellow (04/01/16 2:20 Color BF) PM) [facility]2017-02-20 20:20:00 Test Item Value Reference Range Interpretation Comments CellCnt BF Type (test Other (04/01/16 2:20 code = CellCnt BF Type) PM) [facility]2017-02-20 20:20:00 Test Item Value Reference Range Interpretation Comments Clarity BF (test code = Slight Cloudy (04/01/16 Clarity BF) 2:20 PM) [facility]2017-02-20 20:20:00 Test Item Value Reference Range Interpretation Comments RBC BF (test code = RBC BF) 5375 [facility]2017-02-20 20:20:00 Test Item Value Reference Range Interpretation Comments WBC BF (test code = WBC BF) 980 [facility]2017-02-20 20:20:00 Test Item Value Reference Range Interpretation Comments Lymph BF (test code = Lymph BF) 44 [facility]2017-02-20 20:20:00 Test Item Value Reference Range Interpretation Comments Segs BF (test code = Segs BF) 56 [facility]2017-02-20 20:20:00 Test Item Value Reference Range Interpretation Comments Eos BF (test code = Eos BF) 0 [facility]2017-02-20 20:20:00 Test Item Value Reference Range Interpretation Comments Macrophage BF (test code = Macrophage 0 BF) [facility]2017-02-20 20:20:00 Test Item Value Reference Range Interpretation Comments Color BF (test code = Yellow (04/01/16 2:20 Color BF) PM) [facility]2017-02-20 20:20:00 Test Item Value Reference Range Interpretation Comments CellCnt BF Type (test Other (04/01/16 2:20 code = CellCnt BF Type) PM) [facility]2017-02-20 20:20:00 Test Item Value Reference Range Interpretation Comments Clarity BF (test code = Slight Cloudy (04/01/16 Clarity BF) 2:20 PM) [facility]2017-02-20 20:20:00 Test Item Value Reference Range Interpretation Comments RBC BF (test code = RBC BF) 5375 [facility]2017-02-20 20:20:00 Test Item Value Reference Range Interpretation Comments WBC BF (test code = WBC BF) 980 [facility]2017-02-20 20:20:00 Test Item Value Reference Range Interpretation Comments Lymph BF (test code = Lymph BF) 44 [facility]2017-02-20 20:20:00 Test Item Value Reference Range Interpretation Comments Segs BF (test code = Segs BF) 56 [facility]2017-02-20 20:20:00 Test Item Value Reference Range Interpretation Comments Eos BF (test code = Eos BF) 0 [facility]2017-02-20 20:20:00 Test Item Value Reference Range Interpretation Comments Macrophage BF (test code = Macrophage 0 BF) [facility]2017-02-20 20:20:00 Test Item Value Reference Range Interpretation Comments Color BF (test code = Yellow (04/01/16 2:20 Color BF) PM) [facility]2017-02-20 20:20:00 Test Item Value Reference Range Interpretation Comments CellCnt BF Type (test Other (04/01/16 2:20 code = CellCnt BF Type) PM) [facility]2017-02-20 20:20:00 Test Item Value Reference Range Interpretation Comments Clarity BF (test code = Slight Cloudy (04/01/16 Clarity BF) 2:20 PM) [facility]2017-02-20 20:20:00 Test Item Value Reference Range Interpretation Comments RBC BF (test code = RBC BF) 5375 [facility]2017-02-20 20:20:00 Test Item Value Reference Range Interpretation Comments WBC BF (test code = WBC BF) 980 [facility]2017-02-20 20:20:00 Test Item Value Reference Range Interpretation Comments Lymph BF (test code = Lymph BF) 44 [facility]2017-02-20 20:20:00 Test Item Value Reference Range Interpretation Comments Segs BF (test code = Segs BF) 56 [facility]2017-02-20 20:20:00 Test Item Value Reference Range Interpretation Comments Eos BF (test code = Eos BF) 0 [facility]2017-02-20 20:20:00 Test Item Value Reference Range Interpretation Comments Macrophage BF (test code = Macrophage 0 BF) [facility]2017-02-20 20:20:00 Test Item Value Reference Range Interpretation Comments Color BF (test code = Yellow (04/01/16 2:20 Color BF) PM) [facility]2017-02-20 20:20:00 Test Item Value Reference Range Interpretation Comments CellCnt BF Type (test Other (04/01/16 2:20 code = CellCnt BF Type) PM) [facility]2017-02-20 20:20:00 Test Item Value Reference Range Interpretation Comments Clarity BF (test code = Slight Cloudy (04/01/16 Clarity BF) 2:20 PM) [facility]2017-02-20 20:20:00 Test Item Value Reference Range Interpretation Comments RBC BF (test code = RBC BF) 5375 [facility]2017-02-20 20:20:00 Test Item Value Reference Range Interpretation Comments WBC BF (test code = WBC BF) 980 [facility]2017-02-20 20:20:00 Test Item Value Reference Range Interpretation Comments Lymph BF (test code = Lymph BF) 44 [facility]2017-02-20 20:20:00 Test Item Value Reference Range Interpretation Comments Segs BF (test code = Segs BF) 56 [facility]2017-02-20 20:20:00 Test Item Value Reference Range Interpretation Comments Eos BF (test code = Eos BF) 0 [facility]2017-02-20 20:20:00 Test Item Value Reference Range Interpretation Comments Macrophage BF (test code = Macrophage 0 BF) [facility]2017-02-20 20:20:00 Test Item Value Reference Range Interpretation Comments Color BF (test code = Yellow (04/01/16 2:20 Color BF) PM) [facility]2017-02-20 20:20:00 Test Item Value Reference Range Interpretation Comments CellCnt BF Type (test Other (04/01/16 2:20 code = CellCnt BF Type) PM) [facility]2017-02-20 20:20:00 Test Item Value Reference Range Interpretation Comments Clarity BF (test code = Slight Cloudy (04/01/16 Clarity BF) 2:20 PM) [facility]2017-02-20 20:20:00 Test Item Value Reference Range Interpretation Comments RBC BF (test code = RBC BF) 5375 [facility]2017-02-20 20:20:00 Test Item Value Reference Range Interpretation Comments WBC BF (test code = WBC BF) 980 [facility]2017-02-20 20:20:00 Test Item Value Reference Range Interpretation Comments Lymph BF (test code = Lymph BF) 44 [facility]2017-02-20 20:20:00 Test Item Value Reference Range Interpretation Comments Segs BF (test code = Segs BF) 56 [facility]2017-02-20 20:20:00 Test Item Value Reference Range Interpretation Comments Eos BF (test code = Eos BF) 0 [facility]2017-02-20 20:20:00 Test Item Value Reference Range Interpretation Comments Macrophage BF (test code = Macrophage 0 BF) [facility]2017-02-20 20:20:00 Test Item Value Reference Range Interpretation Comments Color BF (test code = Yellow (04/01/16 2:20 Color BF) PM) [facility]2017-02-20 20:20:00 Test Item Value Reference Range Interpretation Comments CellCnt BF Type (test Other (04/01/16 2:20 code = CellCnt BF Type) PM) [facility]2017-02-20 20:20:00 Test Item Value Reference Range Interpretation Comments Clarity BF (test code = Slight Cloudy (04/01/16 Clarity BF) 2:20 PM) [facility]2017-02-20 20:20:00 Test Item Value Reference Range Interpretation Comments RBC BF (test code = RBC BF) 5375 [facility]2017-02-20 20:20:00 Test Item Value Reference Range Interpretation Comments WBC BF (test code = WBC BF) 980 [facility]2017-02-20 20:20:00 Test Item Value Reference Range Interpretation Comments Lymph BF (test code = Lymph BF) 44 [facility]2017-02-20 20:20:00 Test Item Value Reference Range Interpretation Comments Segs BF (test code = Segs BF) 56 [facility]2017-02-20 20:20:00 Test Item Value Reference Range Interpretation Comments Eos BF (test code = Eos BF) 0 [facility]2017-02-20 20:20:00 Test Item Value Reference Range Interpretation Comments Macrophage BF (test code = Macrophage 0 BF) [facility]2017-02-20 20:20:00 Test Item Value Reference Range Interpretation Comments Color BF (test code = Yellow (04/01/16 2:20 Color BF) PM) [facility]2017-02-20 20:20:00 Test Item Value Reference Range Interpretation Comments CellCnt BF Type (test Other (04/01/16:20 code = CellCnt BF Type) PM) [facility]2017-02-20 20:20:00 Test Item Value Reference Range Interpretation Comments Clarity BF (test code = Slight Cloudy (04/01/16 Clarity BF) 2:20 PM) [facility]2017-02-20 20:20:00 Test Item Value Reference Range Interpretation Comments RBC BF (test code = RBC BF) 5375 [facility]2017-02-20 20:20:00 Test Item Value Reference Range Interpretation Comments WBC BF (test code = WBC BF) 980 [facility]2017-02-20 20:20:00 Test Item Value Reference Range Interpretation Comments Lymph BF (test code = Lymph BF) 44 [facility]2017-02-20 20:20:00 Test Item Value Reference Range Interpretation Comments Segs BF (test code = Segs BF) 56 [facility]2017-02-20 20:20:00 Test Item Value Reference Range Interpretation Comments Eos BF (test code = Eos BF) 0 [facility]2017-02-20 20:20:00 Test Item Value Reference Range Interpretation Comments Macrophage BF (test code = Macrophage 0 BF) [facility]2017-02-20 20:20:00 Test Item Value Reference Range Interpretation Comments Color BF (test code = Yellow (04/01/16 2:20 Color BF) PM) [facility]2017-02-20 20:20:00 Test Item Value Reference Range Interpretation Comments CellCnt BF Type (test Other (04/01/16 2:20 code = CellCnt BF Type) PM) [facility]2017-02-20 20:20:00 Test Item Value Reference Range Interpretation Comments Clarity BF (test code = Slight Cloudy (04/01/16 Clarity BF) 2:20 PM) [facility]2017-02-20 20:20:00 Test Item Value Reference Range Interpretation Comments RBC BF (test code = RBC BF) 5375 [facility]2017-02-20 20:20:00 Test Item Value Reference Range Interpretation Comments WBC BF (test code = WBC BF) 980 [facility]2017-02-20 20:20:00 Test Item Value Reference Range Interpretation Comments Lymph BF (test code = Lymph BF) 44 [facility]2017-02-20 20:20:00 Test Item Value Reference Range Interpretation Comments Segs BF (test code = Segs BF) 56 [facility]2017-02-20 20:20:00 Test Item Value Reference Range Interpretation Comments Eos BF (test code = Eos BF) 0 [facility]2017-02-20 20:20:00 Test Item Value Reference Range Interpretation Comments Macrophage BF (test code = Macrophage 0 BF) [facility]2017-02-20 20:20:00 Test Item Value Reference Range Interpretation Comments Color BF (test code = Yellow (04/01/16 2:20 Color BF) PM) [facility]2017-02-20 20:20:00 Test Item Value Reference Range Interpretation Comments CellCnt BF Type (test Other (04/01/16 2:20 code = CellCnt BF Type) PM) [facility]2017-02-20 20:20:00 Test Item Value Reference Range Interpretation Comments Clarity BF (test code = Slight Cloudy (04/01/16 Clarity BF) 2:20 PM) [facility]2017-02-20 20:20:00 Test Item Value Reference Range Interpretation Comments RBC BF (test code = RBC BF) 5375 [facility]2017-02-20 20:20:00 Test Item Value Reference Range Interpretation Comments WBC BF (test code = WBC BF) 980 [facility]2017-02-20 20:20:00 Test Item Value Reference Range Interpretation Comments Lymph BF (test code = Lymph BF) 44 [facility]2017-02-20 20:20:00 Test Item Value Reference Range Interpretation Comments Segs BF (test code = Segs BF) 56 [facility]2017-02-20 20:20:00 Test Item Value Reference Range Interpretation Comments Eos BF (test code = Eos BF) 0 [facility]2017-02-20 20:20:00 Test Item Value Reference Range Interpretation Comments Macrophage BF (test code = Macrophage 0 BF) [facility]2017-02-20 20:20:00 Test Item Value Reference Range Interpretation Comments Color BF (test code = Yellow (04/01/16 2:20 Color BF) PM) [facility]2017-02-20 20:20:00 Test Item Value Reference Range Interpretation Comments CellCnt BF Type (test Other (04/01/16 2:20 code = CellCnt BF Type) PM) [facility]2017-02-20 20:20:00 Test Item Value Reference Range Interpretation Comments Clarity BF (test code = Slight Cloudy (04/01/16 Clarity BF) 2:20 PM) [facility]2017-02-20 20:20:00 Test Item Value Reference Range Interpretation Comments RBC BF (test code = RBC BF) 5375 [facility]2017-02-20 20:20:00 Test Item Value Reference Range Interpretation Comments WBC BF (test code = WBC BF) 980 [facility]2017-02-20 20:20:00 Test Item Value Reference Range Interpretation Comments Lymph BF (test code = Lymph BF) 44 [facility]2017-02-20 20:20:00 Test Item Value Reference Range Interpretation Comments Segs BF (test code = Segs BF) 56 [facility]2017-02-20 20:20:00 Test Item Value Reference Range Interpretation Comments Eos BF (test code = Eos BF) 0 [facility]2017-02-20 20:20:00 Test Item Value Reference Range Interpretation Comments Macrophage BF (test code = Macrophage 0 BF) [facility]2017-02-20 20:20:00 Test Item Value Reference Range Interpretation Comments Color BF (test code = Yellow (04/01/16 2:20 Color BF) PM) [facility]2017-02-20 20:20:00 Test Item Value Reference Range Interpretation Comments CellCnt BF Type (test Other (04/01/16 2:20 code = CellCnt BF Type) PM) [facility]2017-02-20 20:20:00 Test Item Value Reference Range Interpretation Comments Clarity BF (test code = Slight Cloudy (04/01/16 Clarity BF) 2:20 PM) [facility]2017-02-20 20:20:00 Test Item Value Reference Range Interpretation Comments RBC BF (test code = RBC BF) 5375 [facility]2017-02-20 20:20:00 Test Item Value Reference Range Interpretation Comments WBC BF (test code = WBC BF) 980 [facility]2017-02-20 20:20:00 Test Item Value Reference Range Interpretation Comments Lymph BF (test code = Lymph BF) 44 [facility]2017-02-20 20:20:00 Test Item Value Reference Range Interpretation Comments Segs BF (test code = Segs BF) 56 [facility]JrqzyrqMNBTDUCGBO0562-07-98 19:10:00 Test Item Value Reference Range Interpretation Comments WBC (test code = WBC) 6.1 3.7-10.4 [facility] CenterGeknyugPZXTYFQNYU0488-99-82 19:10:00 Test Item Value Reference Range Interpretation Comments MPV (test code = MPV) 7.9 7.4-10.4 [facility] CenterVkbkvnpEJRLBYBWVU2564-58-70 19:10:00 Test Item Value Reference Range Interpretation Comments Platelet (test code = Platelet) 226 133-450 [facility] CenterYiebqfgNPEKGPJVRT9240-04-40 19:10:00 Test Item Value Reference Range Interpretation Comments MCH (test code = MCH) 28.5 pg 27.0-31.0 [facility] CenterVahqwpqZIJQZZKQRK1095-34-97 19:10:00 Test Item Value Reference Range Interpretation Comments RDW (test code = RDW) 14.8 11.5-14.5 [facility] CenterAexpmfqZQRQSJBPLB8523-56-05 19:10:00 Test Item Value Reference Range Interpretation Comments MCHC (test code = MCHC) 33.2 32.0-36.0 [facility] CenterRsxsedzZEJUSGPYFR2688-35-82 19:10:00 Test Item Value Reference Range Interpretation Comments Hct (test code = Hct) 30.8 36.0-48.0 [facility] CenterOreterdCVZQKYTLHP1731-75-69 19:10:00 Test Item Value Reference Range Interpretation Comments RBC (test code = RBC) 3.59 4.20-5.40 [facility] CenterFuyiabxXUZPTIIRSW6656-29-77 19:10:00 Test Item Value Reference Range Interpretation Comments Hgb (test code = Hgb) 10.2 12.0-16.0 [facility] CenterMpfmaxuQEKYIKNKUN7204-09-62 19:10:00 Test Item Value Reference Range Interpretation Comments MCV (test code = MCV) 85.9 80.0-98.0 [facility] CenterFzroanrBLEKNKJGCF7394-25-33 19:10:00 Test Item Value Reference Range Interpretation Comments Eosinophils # (test code 0.1 See_Comment [A utomated message] The = Eosinophils #) system whic h generated this result tra nsmitted reference range : <=0.5. The reference r lv was not used to int erpret this result as normal/abnormal . [facility] CenterOptoqakWLGGBVMEJY9593-92-65 19:10:00 Test Item Value Reference Range Interpretation Comments Monocytes # (test code 0.4 See_Comment [Aut omated message] The = Monocytes #) system which generated this result tra nsmitted reference range : <=0.8. The reference r lv was not used to int erpret this result as normal/abnormal . [facility] CenterRkvabcuVHCOUAJTBO7326-01-54 19:10:00 Test Item Value Reference Range Interpretation Comments Segs-Bands # (test code = Segs-Bands #) 4.0 1.5-8.1 [facility] CenterGlvjlyrEEHQQHAFJZ5750-50-71 19:10:00 Test Item Value Reference Range Interpretation Comments Lymphocytes # (test code = Lymphocytes 1.5 1.0-5.5 #) [facility] CenterZqeotjgETFSDKGHHY0371-44-09 19:10:00 Test Item Value Reference Range Interpretation Comments Basophils # (test code 0.0 See_Comment [Aut omated message] The = Basophils #) system which generated this result tra nsmitted reference range : <=0.2. The reference r lv was not used to int erpret this result as normal/abnormal . [facility] CenterWyjkoboHNDVPDVLPN7156-94-76 19:10:00 Test Item Value Reference Range Interpretation Comments Lymphocytes (test code = Lymphocytes) 25.0 20.0-40.0 [facility] CenterNksunohOEMFFCJRGD9798-63-58 19:10:00 Test Item Value Reference Range Interpretation Comments Monocytes (test code = Monocytes) 6.9 2.0-12.0 [facility] CenterYteyvlvDQUZNCUOFL7003-06-51 19:10:00 Test Item Value Reference Range Interpretation Comments Segs (test code = Segs) 65.5 45.0-75.0 [facility] CenterWzeeljcUFOESFQKCU1448-91-11 19:10:00 Test Item Value Reference Range Interpretation Comments Basophils (test code = 0.6 See_Comment [Aut omated message] The Basophils) system which ge nerated this result tra nsmitted reference range : <=1.0. The reference r lv was not used to int erpret this result as normal/abnormal . [facility] CenterRmfjwobCKHGRMIOFM5176-24-51 19:10:00 Test Item Value Reference Range Interpretation Comments Eosinophils (test code = 2.0 See_Comment [A utomated message] The Eosinophils) system which ge nerated this result tra nsmitted reference range : <=4.0. The reference r lv was not used to int erpret this result as normal/abnormal . [facility] CenterXkzcdciUDHIPOJFQV7837-51-75 19:10:00 Test Item Value Reference Range Interpretation Comments WBC (test code = WBC) 6.1 3.7-10.4 [facility] CenterLowqaaqZOTMZJLEHX6845-52-72 19:10:00 Test Item Value Reference Range Interpretation Comments MPV (test code = MPV) 7.9 7.4-10.4 [facility] CenterFoehcjoJVYMCCTMWD6893-52-16 19:10:00 Test Item Value Reference Range Interpretation Comments Platelet (test code = Platelet) 226 133-450 [facility] CenterWstcsotZMTIQSDXEG2360-76-76 19:10:00 Test Item Value Reference Range Interpretation Comments MCH (test code = MCH) 28.5 pg 27.0-31.0 [facility] CenterXgdudvnQOPKIFRVHO1568-60-32 19:10:00 Test Item Value Reference Range Interpretation Comments RDW (test code = RDW) 14.8 11.5-14.5 [facility] CenterAzkgcqnEDVONWUNOJ7221-51-22 19:10:00 Test Item Value Reference Range Interpretation Comments MCHC (test code = MCHC) 33.2 32.0-36.0 [facility] CenterPdkiqvvKLTBZVSLII4509-38-51 19:10:00 Test Item Value Reference Range Interpretation Comments Hct (test code = Hct) 30.8 36.0-48.0 [facility] CenterWdoxjlfMVLMTHTDRG6516-63-39 19:10:00 Test Item Value Reference Range Interpretation Comments RBC (test code = RBC) 3.59 4.20-5.40 [facility] CenterOclbllpFIDMOSDWFN7128-23-79 19:10:00 Test Item Value Reference Range Interpretation Comments Hgb (test code = Hgb) 10.2 12.0-16.0 [facility] CenterSmirusePWWIXOVBPS4632-77-44 19:10:00 Test Item Value Reference Range Interpretation Comments MCV (test code = MCV) 85.9 80.0-98.0 [facility] CenterNqcjmkbWBFRUGXRGG7275-72-26 19:10:00 Test Item Value Reference Range Interpretation Comments Eosinophils # (test code 0.1 See_Comment [A utomated message] The = Eosinophils #) system whic h generated this result tra nsmitted reference range : <=0.5. The reference r lv was not used to int erpret this result as normal/abnormal . [facility] CenterWeqicybHLYGXUDRIH8352-12-23 19:10:00 Test Item Value Reference Range Interpretation Comments Monocytes # (test code 0.4 See_Comment [Aut omated message] The = Monocytes #) system which generated this result tra nsmitted reference range : <=0.8. The reference r lv was not used to int erpret this result as normal/abnormal . [facility] CenterFcigzxxMAPMWCCMDQ5105-83-89 19:10:00 Test Item Value Reference Range Interpretation Comments Segs-Bands # (test code = Segs-Bands #) 4.0 1.5-8.1 [facility] CenterFkcdkzhMJYAYQQIJA3554-84-37 19:10:00 Test Item Value Reference Range Interpretation Comments Lymphocytes # (test code = Lymphocytes 1.5 1.0-5.5 #) [facility] CenterSeekqupILWEPOLHKC8460-97-14 19:10:00 Test Item Value Reference Range Interpretation Comments Basophils # (test code 0.0 See_Comment [Aut omated message] The = Basophils #) system which generated this result tra nsmitted reference range : <=0.2. The reference r lv was not used to int erpret this result as normal/abnormal . [facility] CenterRsyfxwpBWGQKHACJV9725-64-83 19:10:00 Test Item Value Reference Range Interpretation Comments Lymphocytes (test code = Lymphocytes) 25.0 20.0-40.0 [facility] CenterBycgcxmCMDAAOHYZJ0417-39-96 19:10:00 Test Item Value Reference Range Interpretation Comments Monocytes (test code = Monocytes) 6.9 2.0-12.0 [facility] CenterRytfebtGXXKNGBIUH1022-35-06 19:10:00 Test Item Value Reference Range Interpretation Comments Segs (test code = Segs) 65.5 45.0-75.0 [facility] CenterEukhglrGUTTEACTYQ6759-64-33 19:10:00 Test Item Value Reference Range Interpretation Comments Basophils (test code = 0.6 See_Comment [Aut omated message] The Basophils) system which ge nerated this result tra nsmitted reference range : <=1.0. The reference r lv was not used to int erpret this result as normal/abnormal . [facility] CenterVkjvhawQQKHQQQCHA8681-20-67 19:10:00 Test Item Value Reference Range Interpretation Comments Eosinophils (test code = 2.0 See_Comment [A utomated message] The Eosinophils) system which ge nerated this result tra nsmitted reference range : <=4.0. The reference r lv was not used to int erpret this result as normal/abnormal . [facility] CenterHgyrzxxGGRZVSQTAO6063-10-03 19:10:00 Test Item Value Reference Range Interpretation Comments WBC (test code = WBC) 6.1 3.7-10.4 [facility] CenterKtbtjlxQQIDHULFNV8147-84-77 19:10:00 Test Item Value Reference Range Interpretation Comments MPV (test code = MPV) 7.9 7.4-10.4 [facility] CenterBppnrxkGPQQIRPPKB0349-47-93 19:10:00 Test Item Value Reference Range Interpretation Comments Platelet (test code = Platelet) 226 133-450 [facility] CenterIejxhiaEZZRFTJATL8317-55-48 19:10:00 Test Item Value Reference Range Interpretation Comments MCH (test code = MCH) 28.5 pg 27.0-31.0 [facility] CenterZedxqtzUJZWPJODLF0684-08-55 19:10:00 Test Item Value Reference Range Interpretation Comments RDW (test code = RDW) 14.8 11.5-14.5 [facility] CenterKefpijwTAFJVATBDY1319-75-91 19:10:00 Test Item Value Reference Range Interpretation Comments MCHC (test code = MCHC) 33.2 32.0-36.0 [facility] CenterTlmxjkzUIMXAYIKVH1420-20-86 19:10:00 Test Item Value Reference Range Interpretation Comments Hct (test code = Hct) 30.8 36.0-48.0 [facility] CenterSlgdjafJKEGAQETFM2362-94-46 19:10:00 Test Item Value Reference Range Interpretation Comments RBC (test code = RBC) 3.59 4.20-5.40 [facility] CenterUqsopjbJOZDMFDFJO5260-87-62 19:10:00 Test Item Value Reference Range Interpretation Comments Hgb (test code = Hgb) 10.2 12.0-16.0 [facility] CenterOinjzmbAIDOTGNTDG4219-83-57 19:10:00 Test Item Value Reference Range Interpretation Comments MCV (test code = MCV) 85.9 80.0-98.0 [facility] CenterWwsudonNWIJZZZAWL4114-44-09 19:10:00 Test Item Value Reference Range Interpretation Comments Eosinophils # (test code 0.1 See_Comment [A utomated message] The = Eosinophils #) system whic h generated this result tra nsmitted reference range : <=0.5. The reference r lv was not used to int erpret this result as normal/abnormal . [facility] CenterFachpzfVZYVWRQDRD7862-31-19 19:10:00 Test Item Value Reference Range Interpretation Comments Monocytes # (test code 0.4 See_Comment [Aut omated message] The = Monocytes #) system which generated this result tra nsmitted reference range : <=0.8. The reference r lv was not used to int erpret this result as normal/abnormal . [facility] CenterBfskqcpWSPVNSAYJO0843-30-66 19:10:00 Test Item Value Reference Range Interpretation Comments Segs-Bands # (test code = Segs-Bands #) 4.0 1.5-8.1 [facility] CenterAmkzyxqKRPUQZKAFE9625-96-61 19:10:00 Test Item Value Reference Range Interpretation Comments Lymphocytes # (test code = Lymphocytes 1.5 1.0-5.5 #) [facility] CenterPlglkqkADPVJCNEGR3802-45-88 19:10:00 Test Item Value Reference Range Interpretation Comments Basophils # (test code 0.0 See_Comment [Aut omated message] The = Basophils #) system which generated this result tra nsmitted reference range : <=0.2. The reference r lv was not used to int erpret this result as normal/abnormal . [facility] CenterLyjiunwKVAWXYMHIY6672-20-93 19:10:00 Test Item Value Reference Range Interpretation Comments Lymphocytes (test code = Lymphocytes) 25.0 20.0-40.0 [facility] CenterAugqcltQCRGIZGODY5183-90-43 19:10:00 Test Item Value Reference Range Interpretation Comments Monocytes (test code = Monocytes) 6.9 2.0-12.0 [facility] CenterUuwqpgrZIYTSADMXT2840-75-68 19:10:00 Test Item Value Reference Range Interpretation Comments Segs (test code = Segs) 65.5 45.0-75.0 [facility] CenterPvnrntcVRUNCFKYFD8851-00-68 19:10:00 Test Item Value Reference Range Interpretation Comments Basophils (test code = 0.6 See_Comment [Aut omated message] The Basophils) system which ge nerated this result tra nsmitted reference range : <=1.0. The reference r lv was not used to int erpret this result as normal/abnormal . [facility] CenterYyznbjgXLTEVMCJED5864-60-97 19:10:00 Test Item Value Reference Range Interpretation Comments Eosinophils (test code = 2.0 See_Comment [A utomated message] The Eosinophils) system which ge nerated this result tra nsmitted reference range : <=4.0. The reference r lv was not used to int erpret this result as normal/abnormal . [facility] CenterLpwmzdrEDIRYZUSVT2538-53-20 19:10:00 Test Item Value Reference Range Interpretation Comments WBC (test code = WBC) 6.1 3.7-10.4 [facility] CenterBbrflppENFABUMVGI1179-61-25 19:10:00 Test Item Value Reference Range Interpretation Comments MPV (test code = MPV) 7.9 7.4-10.4 [facility] CenterRbbstkvMPGJAASFZT1925-02-22 19:10:00 Test Item Value Reference Range Interpretation Comments Platelet (test code = Platelet) 226 133-450 [facility] CenterMftmzlaDPUECWPFDH5395-71-49 19:10:00 Test Item Value Reference Range Interpretation Comments MCH (test code = MCH) 28.5 pg 27.0-31.0 [facility] CenterKdisvnoTBCACZGZNP9509-47-63 19:10:00 Test Item Value Reference Range Interpretation Comments RDW (test code = RDW) 14.8 11.5-14.5 [facility] CenterLuvxibbNFURDXRQVE1169-91-72 19:10:00 Test Item Value Reference Range Interpretation Comments MCHC (test code = MCHC) 33.2 32.0-36.0 [facility] CenterOptwynpGMHLMUNLDM7151-24-47 19:10:00 Test Item Value Reference Range Interpretation Comments Hct (test code = Hct) 30.8 36.0-48.0 [facility] CenterSbsklfxRCKSORXMZI3592-81-44 19:10:00 Test Item Value Reference Range Interpretation Comments RBC (test code = RBC) 3.59 4.20-5.40 [facility] CenterFfviqxzIRIJAGKDTS0076-21-65 19:10:00 Test Item Value Reference Range Interpretation Comments Hgb (test code = Hgb) 10.2 12.0-16.0 [facility] CenterUzhwtyxVUAYEEPDHB2213-95-04 19:10:00 Test Item Value Reference Range Interpretation Comments MCV (test code = MCV) 85.9 80.0-98.0 [facility] CenterTiucwcjQJUHLORJRG8617-38-17 19:10:00 Test Item Value Reference Range Interpretation Comments Eosinophils # (test code 0.1 See_Comment [A utomated message] The = Eosinophils #) system whic h generated this result tra nsmitted reference range : <=0.5. The reference r lv was not used to int erpret this result as normal/abnormal . [facility] CenterUajtsyvLQRHTWUASE0359-81-41 19:10:00 Test Item Value Reference Range Interpretation Comments Monocytes # (test code 0.4 See_Comment [Aut omated message] The = Monocytes #) system which generated this result tra nsmitted reference range : <=0.8. The reference r lv was not used to int erpret this result as normal/abnormal . [facility] CenterGnsyxaaMICJSNVDPM4169-51-04 19:10:00 Test Item Value Reference Range Interpretation Comments Segs-Bands # (test code = Segs-Bands #) 4.0 1.5-8.1 [facility] CenterIfxozvcXYVWVKGQOK7916-69-97 19:10:00 Test Item Value Reference Range Interpretation Comments Lymphocytes # (test code = Lymphocytes 1.5 1.0-5.5 #) [facility] CenterOitmgssMRMMSHJCFS8921-46-28 19:10:00 Test Item Value Reference Range Interpretation Comments Basophils # (test code 0.0 See_Comment [Aut omated message] The = Basophils #) system which generated this result tra nsmitted reference range : <=0.2. The reference r lv was not used to int erpret this result as normal/abnormal . [facility] CenterHmovecqNEPNTGLUOX8375-20-59 19:10:00 Test Item Value Reference Range Interpretation Comments Lymphocytes (test code = Lymphocytes) 25.0 20.0-40.0 [facility] CenterGuvmfuuUFNVYQEWBG6731-07-66 19:10:00 Test Item Value Reference Range Interpretation Comments Monocytes (test code = Monocytes) 6.9 2.0-12.0 [facility] CenterIvnvhjkKGESHLYFTU4421-53-82 19:10:00 Test Item Value Reference Range Interpretation Comments Segs (test code = Segs) 65.5 45.0-75.0 [facility] CenterRmhznxtYFGQQMXFZW9441-99-20 19:10:00 Test Item Value Reference Range Interpretation Comments Basophils (test code = 0.6 See_Comment [Aut omated message] The Basophils) system which ge nerated this result tra nsmitted reference range : <=1.0. The reference r lv was not used to int erpret this result as normal/abnormal . [facility] CenterPuurweoTEZXHTFIOS4380-18-15 19:10:00 Test Item Value Reference Range Interpretation Comments Eosinophils (test code = 2.0 See_Comment [A utomated message] The Eosinophils) system which ge nerated this result tra nsmitted reference range : <=4.0. The reference r lv was not used to int erpret this result as normal/abnormal . [facility] CenterBkvxblbCXVCKINQTI8730-68-04 19:10:00 Test Item Value Reference Range Interpretation Comments WBC (test code = WBC) 6.1 3.7-10.4 [facility] CenterRitxgjmVUDTNAXCPR8017-68-51 19:10:00 Test Item Value Reference Range Interpretation Comments MPV (test code = MPV) 7.9 7.4-10.4 [facility] CenterKsfbjwjYWIUJCJQWM9674-60-97 19:10:00 Test Item Value Reference Range Interpretation Comments Platelet (test code = Platelet) 226 133-450 [facility] CenterDzvaxruPFIDNDSHAE4454-37-53 19:10:00 Test Item Value Reference Range Interpretation Comments MCH (test code = MCH) 28.5 pg 27.0-31.0 [facility] CenterVmfejelDZTZMAGJDF1386-31-60 19:10:00 Test Item Value Reference Range Interpretation Comments RDW (test code = RDW) 14.8 11.5-14.5 [facility] CenterAzxqnoyVJQRFSCIDT7725-76-56 19:10:00 Test Item Value Reference Range Interpretation Comments MCHC (test code = MCHC) 33.2 32.0-36.0 [facility] CenterIvbvnvnOFWPPIYURP1538-03-47 19:10:00 Test Item Value Reference Range Interpretation Comments Hct (test code = Hct) 30.8 36.0-48.0 [facility] CenterPgpieefWJJUGAUJUY2756-78-46 19:10:00 Test Item Value Reference Range Interpretation Comments RBC (test code = RBC) 3.59 4.20-5.40 [facility] CenterDkzcuobQUBZTHUQLH1182-58-35 19:10:00 Test Item Value Reference Range Interpretation Comments Hgb (test code = Hgb) 10.2 12.0-16.0 [facility] CenterMhqndszMKQMWFOYOA3784-52-61 19:10:00 Test Item Value Reference Range Interpretation Comments MCV (test code = MCV) 85.9 80.0-98.0 [facility] CenterSlaxjskKEPNGPEXLD2800-78-72 19:10:00 Test Item Value Reference Range Interpretation Comments Eosinophils # (test code 0.1 See_Comment [A utomated message] The = Eosinophils #) system whic h generated this result tra nsmitted reference range : <=0.5. The reference r lv was not used to int erpret this result as normal/abnormal . [facility] CenterGidwhteBDCUPZXMWK5203-74-66 19:10:00 Test Item Value Reference Range Interpretation Comments Monocytes # (test code 0.4 See_Comment [Aut omated message] The = Monocytes #) system which generated this result tra nsmitted reference range : <=0.8. The reference r lv was not used to int erpret this result as normal/abnormal . [facility] CenterHvdmftnKJSAHERJIG1819-48-67 19:10:00 Test Item Value Reference Range Interpretation Comments Segs-Bands # (test code = Segs-Bands #) 4.0 1.5-8.1 [facility] CenterLopsjdoKAEXOORPYV4631-72-69 19:10:00 Test Item Value Reference Range Interpretation Comments Lymphocytes # (test code = Lymphocytes 1.5 1.0-5.5 #) [facility] CenterHbuwlulHXMPUTPQHL1106-98-62 19:10:00 Test Item Value Reference Range Interpretation Comments Basophils # (test code 0.0 See_Comment [Aut omated message] The = Basophils #) system which generated this result tra nsmitted reference range : <=0.2. The reference r lv was not used to int erpret this result as normal/abnormal . [facility] CenterXnynisxXOMDFFHRYL8159-43-17 19:10:00 Test Item Value Reference Range Interpretation Comments Lymphocytes (test code = Lymphocytes) 25.0 20.0-40.0 [facility] CenterFgbsxqjKIVNETLKKE5755-04-12 19:10:00 Test Item Value Reference Range Interpretation Comments Monocytes (test code = Monocytes) 6.9 2.0-12.0 [facility] CenterYsgrxypWVEXWUIFRU9628-86-91 19:10:00 Test Item Value Reference Range Interpretation Comments Segs (test code = Segs) 65.5 45.0-75.0 [facility] CenterPkthhwbIVURSEAQNP1456-27-15 19:10:00 Test Item Value Reference Range Interpretation Comments Basophils (test code = 0.6 See_Comment [Aut omated message] The Basophils) system which ge nerated this result tra nsmitted reference range : <=1.0. The reference r lv was not used to int erpret this result as normal/abnormal . [facility] CenterIkmgefhPXJAZUEHWF4438-70-68 19:10:00 Test Item Value Reference Range Interpretation Comments Eosinophils (test code = 2.0 See_Comment [A utomated message] The Eosinophils) system which ge nerated this result tra nsmitted reference range : <=4.0. The reference r lv was not used to int erpret this result as normal/abnormal . [facility] CenterLnfyvywTXEMESKLGL2936-86-32 19:10:00 Test Item Value Reference Range Interpretation Comments WBC (test code = WBC) 6.1 3.7-10.4 [facility] CenterOefuxomMBUGUJECLM1892-14-04 19:10:00 Test Item Value Reference Range Interpretation Comments MPV (test code = MPV) 7.9 7.4-10.4 [facility] CenterQjsqvakJNAUDEBKHY6750-73-40 19:10:00 Test Item Value Reference Range Interpretation Comments Platelet (test code = Platelet) 226 133-450 [facility] CenterHblhzhdXWHBQXPWWV9444-71-32 19:10:00 Test Item Value Reference Range Interpretation Comments MCH (test code = MCH) 28.5 pg 27.0-31.0 [facility] CenterVtoggmbUJBASKGCQL7194-96-77 19:10:00 Test Item Value Reference Range Interpretation Comments RDW (test code = RDW) 14.8 11.5-14.5 [facility] CenterHccewoiMAONSPBKQW7231-21-50 19:10:00 Test Item Value Reference Range Interpretation Comments MCHC (test code = MCHC) 33.2 32.0-36.0 [facility] CenterAubkxaaPLSKTSGFDO2489-11-51 19:10:00 Test Item Value Reference Range Interpretation Comments Hct (test code = Hct) 30.8 36.0-48.0 [facility] CenterWsnyxdeKQDSGQEEXU0896-98-53 19:10:00 Test Item Value Reference Range Interpretation Comments RBC (test code = RBC) 3.59 4.20-5.40 [facility] CenterHogyfvvKTFWUAXUCM3334-65-82 19:10:00 Test Item Value Reference Range Interpretation Comments Hgb (test code = Hgb) 10.2 12.0-16.0 [facility] CenterUwcuwkfZFBPRYICFF8467-86-08 19:10:00 Test Item Value Reference Range Interpretation Comments MCV (test code = MCV) 85.9 80.0-98.0 [facility] CenterSklzjapMNBJDEYOWN3095-74-82 19:10:00 Test Item Value Reference Range Interpretation Comments Eosinophils # (test code 0.1 See_Comment [A utomated message] The = Eosinophils #) system whic h generated this result tra nsmitted reference range : <=0.5. The reference r lv was not used to int erpret this result as normal/abnormal . [facility] CenterAlqcnguXNMZWJDKAX7770-10-20 19:10:00 Test Item Value Reference Range Interpretation Comments Monocytes # (test code 0.4 See_Comment [Aut omated message] The = Monocytes #) system which generated this result tra nsmitted reference range : <=0.8. The reference r lv was not used to int erpret this result as normal/abnormal . [facility] CenterZmtjiljSHEGCJBDMA0006-68-24 19:10:00 Test Item Value Reference Range Interpretation Comments Segs-Bands # (test code = Segs-Bands #) 4.0 1.5-8.1 [facility] CenterIjgfpbhKTBZZFFVNL4223-63-09 19:10:00 Test Item Value Reference Range Interpretation Comments Lymphocytes # (test code = Lymphocytes 1.5 1.0-5.5 #) [facility] CenterIokjnieXEDUQOPWJL1446-00-35 19:10:00 Test Item Value Reference Range Interpretation Comments Basophils # (test code 0.0 See_Comment [Aut omated message] The = Basophils #) system which generated this result tra nsmitted reference range : <=0.2. The reference r lv was not used to int erpret this result as normal/abnormal . [facility] CenterYwulgpfJIRHEDXHBG2239-16-07 19:10:00 Test Item Value Reference Range Interpretation Comments Lymphocytes (test code = Lymphocytes) 25.0 20.0-40.0 [facility] CenterAcvbxntYDORNFTBZL6755-12-60 19:10:00 Test Item Value Reference Range Interpretation Comments Monocytes (test code = Monocytes) 6.9 2.0-12.0 [facility] CenterSdcazxoSECTSLOEEF6407-59-05 19:10:00 Test Item Value Reference Range Interpretation Comments Segs (test code = Segs) 65.5 45.0-75.0 [facility] CenterTcomszuEVWHPWUATQ2432-09-22 19:10:00 Test Item Value Reference Range Interpretation Comments Basophils (test code = 0.6 See_Comment [Aut omated message] The Basophils) system which ge nerated this result tra nsmitted reference range : <=1.0. The reference r lv was not used to int erpret this result as normal/abnormal . [facility] CenterKfzqvltLIEGNAFLYE2087-08-53 19:10:00 Test Item Value Reference Range Interpretation Comments Eosinophils (test code = 2.0 See_Comment [A utomated message] The Eosinophils) system which ge nerated this result tra nsmitted reference range : <=4.0. The reference r lv was not used to int erpret this result as normal/abnormal . [facility] CenterFitembjYINTBVXGMR5739-97-82 19:10:00 Test Item Value Reference Range Interpretation Comments WBC (test code = WBC) 6.1 3.7-10.4 [facility] CenterRlzzyytWHEABBNNKR4268-92-42 19:10:00 Test Item Value Reference Range Interpretation Comments MPV (test code = MPV) 7.9 7.4-10.4 [facility] CenterWoijimcKNPQSOKOPT2098-94-96 19:10:00 Test Item Value Reference Range Interpretation Comments Platelet (test code = Platelet) 226 133-450 [facility] CenterMhzidewJJILJJQKHQ6687-51-71 19:10:00 Test Item Value Reference Range Interpretation Comments MCH (test code = MCH) 28.5 pg 27.0-31.0 [facility] CenterLjhcfmhPEHYSAPTUI6898-46-84 19:10:00 Test Item Value Reference Range Interpretation Comments RDW (test code = RDW) 14.8 11.5-14.5 [facility] CenterZvzwjacIUUSEHCQNJ6612-16-52 19:10:00 Test Item Value Reference Range Interpretation Comments MCHC (test code = MCHC) 33.2 32.0-36.0 [facility] CenterUevaobzRNLGKMGWCQ7251-05-51 19:10:00 Test Item Value Reference Range Interpretation Comments Hct (test code = Hct) 30.8 36.0-48.0 [facility] CenterDeioqlrFXFVDPIVJW4168-21-15 19:10:00 Test Item Value Reference Range Interpretation Comments RBC (test code = RBC) 3.59 4.20-5.40 [facility] CenterFcdwogeMLVNPNVDTO5133-90-71 19:10:00 Test Item Value Reference Range Interpretation Comments Hgb (test code = Hgb) 10.2 12.0-16.0 [facility] CenterUqnebtxAYISZHOPBH4335-70-99 19:10:00 Test Item Value Reference Range Interpretation Comments MCV (test code = MCV) 85.9 80.0-98.0 [facility] CenterAsjkipiJUHAEWKOJT8542-11-40 19:10:00 Test Item Value Reference Range Interpretation Comments Eosinophils # (test code 0.1 See_Comment [A utomated message] The = Eosinophils #) system whic h generated this result tra nsmitted reference range : <=0.5. The reference r lv was not used to int erpret this result as normal/abnormal . [facility] CenterHxcwjwvENYWBMXLLG5595-54-71 19:10:00 Test Item Value Reference Range Interpretation Comments Monocytes # (test code 0.4 See_Comment [Aut omated message] The = Monocytes #) system which generated this result tra nsmitted reference range : <=0.8. The reference r lv was not used to int erpret this result as normal/abnormal . [facility] CenterHfmjllyPNTSHVFNPD2838-64-73 19:10:00 Test Item Value Reference Range Interpretation Comments Segs-Bands # (test code = Segs-Bands #) 4.0 1.5-8.1 [facility] CenterJxgatqgUNUXZKGNWZ8438-32-25 19:10:00 Test Item Value Reference Range Interpretation Comments Lymphocytes # (test code = Lymphocytes 1.5 1.0-5.5 #) [facility] CenterLzukepfZDTMPYORXY1105-46-33 19:10:00 Test Item Value Reference Range Interpretation Comments Basophils # (test code 0.0 See_Comment [Aut omated message] The = Basophils #) system which generated this result tra nsmitted reference range : <=0.2. The reference r lv was not used to int erpret this result as normal/abnormal . [facility] CenterOwowlulWVVFUXTWIP3564-16-97 19:10:00 Test Item Value Reference Range Interpretation Comments Lymphocytes (test code = Lymphocytes) 25.0 20.0-40.0 [facility] CenterUvlgrfnRVIOUOPADV4855-18-72 19:10:00 Test Item Value Reference Range Interpretation Comments Monocytes (test code = Monocytes) 6.9 2.0-12.0 [facility] CenterKpqhmezIIBYIRXYHJ8166-26-22 19:10:00 Test Item Value Reference Range Interpretation Comments Segs (test code = Segs) 65.5 45.0-75.0 [facility] CenterBmfmvveYEIOTRNNNB6655-16-30 19:10:00 Test Item Value Reference Range Interpretation Comments Basophils (test code = 0.6 See_Comment [Aut omated message] The Basophils) system which ge nerated this result tra nsmitted reference range : <=1.0. The reference r lv was not used to int erpret this result as normal/abnormal . [facility] CenterVzpoyygFPVEBYRSEQ3010-31-24 19:10:00 Test Item Value Reference Range Interpretation Comments Eosinophils (test code = 2.0 See_Comment [A utomated message] The Eosinophils) system which ge nerated this result tra nsmitted reference range : <=4.0. The reference r lv was not used to int erpret this result as normal/abnormal . [facility]TimcehpQJROCOSOKJ9285-07-88 19:10:00 Test Item Value Reference Range Interpretation Comments WBC (test code = WBC) 6.1 3.7-10.4 [facility] CenterZuwbowzDGLFSUJGLO8277-33-96 19:10:00 Test Item Value Reference Range Interpretation Comments MPV (test code = MPV) 7.9 7.4-10.4 [facility] CenterAajmoenLAXNFCMRLA6980-43-71 19:10:00 Test Item Value Reference Range Interpretation Comments Platelet (test code = Platelet) 226 133-450 [facility] CenterFelozwoWNKJDMACZK7859-92-00 19:10:00 Test Item Value Reference Range Interpretation Comments MCH (test code = MCH) 28.5 pg 27.0-31.0 [facility] CenterTteglflTZLKQZEGTP9190-94-76 19:10:00 Test Item Value Reference Range Interpretation Comments RDW (test code = RDW) 14.8 11.5-14.5 [facility] CenterNjmnrjkADMGVWLONA6759-31-15 19:10:00 Test Item Value Reference Range Interpretation Comments MCHC (test code = MCHC) 33.2 32.0-36.0 [facility] CenterMysuvfcOAIJVMVQVK6897-06-71 19:10:00 Test Item Value Reference Range Interpretation Comments Hct (test code = Hct) 30.8 36.0-48.0 [facility] CenterAuyhdutDCEGMGIOOV7843-12-94 19:10:00 Test Item Value Reference Range Interpretation Comments RBC (test code = RBC) 3.59 4.20-5.40 [facility] CenterAsjaiuhTOGPZYROZB5208-32-34 19:10:00 Test Item Value Reference Range Interpretation Comments Hgb (test code = Hgb) 10.2 12.0-16.0 [facility] CenterIhkfmlfYDFNPMQZTV8753-87-59 19:10:00 Test Item Value Reference Range Interpretation Comments MCV (test code = MCV) 85.9 80.0-98.0 [facility] CenterZfmetaaGSUKQTFBXY1911-46-36 19:10:00 Test Item Value Reference Range Interpretation Comments Eosinophils # (test code 0.1 See_Comment [A utomated message] The = Eosinophils #) system whic h generated this result tra nsmitted reference range : <=0.5. The reference r lv was not used to int erpret this result as normal/abnormal . [facility] CenterEgshazySVXTFLRUZT9310-10-44 19:10:00 Test Item Value Reference Range Interpretation Comments Monocytes # (test code 0.4 See_Comment [Aut omated message] The = Monocytes #) system which generated this result tra nsmitted reference range : <=0.8. The reference r lv was not used to int erpret this result as normal/abnormal . [facility] CenterLrjteerDGXNNAPIYD5663-08-81 19:10:00 Test Item Value Reference Range Interpretation Comments Segs-Bands # (test code = Segs-Bands #) 4.0 1.5-8.1 [facility] CenterRynenajLAQZXDYWQM9355-65-96 19:10:00 Test Item Value Reference Range Interpretation Comments Lymphocytes # (test code = Lymphocytes 1.5 1.0-5.5 #) [facility] CenterEdulgskTOREXDKMPL9236-87-31 19:10:00 Test Item Value Reference Range Interpretation Comments Basophils # (test code 0.0 See_Comment [Aut omated message] The = Basophils #) system which generated this result tra nsmitted reference range : <=0.2. The reference r lv was not used to int erpret this result as normal/abnormal . [facility] CenterIkwyozdEZNSIVURMQ0620-20-95 19:10:00 Test Item Value Reference Range Interpretation Comments Lymphocytes (test code = Lymphocytes) 25.0 20.0-40.0 [facility] CenterLcdrsugJBKUMIBXST5087-30-43 19:10:00 Test Item Value Reference Range Interpretation Comments Monocytes (test code = Monocytes) 6.9 2.0-12.0 [facility] CenterKlhhqfvTRKGHLJRYN8224-81-61 19:10:00 Test Item Value Reference Range Interpretation Comments Segs (test code = Segs) 65.5 45.0-75.0 [facility] CenterQcooiuaMMWIXQVUCI8621-97-69 19:10:00 Test Item Value Reference Range Interpretation Comments Basophils (test code = 0.6 See_Comment [Aut omated message] The Basophils) system which ge nerated this result tra nsmitted reference range : <=1.0. The reference r lv was not used to int erpret this result as normal/abnormal . [facility] CenterKsiewazNWWNVJEENQ8039-81-06 19:10:00 Test Item Value Reference Range Interpretation Comments Eosinophils (test code = 2.0 See_Comment [A utomated message] The Eosinophils) system which ge nerated this result tra nsmitted reference range : <=4.0. The reference r lv was not used to int erpret this result as normal/abnormal . [facility] CenterMmoitsgNPVRNEGJVP2971-74-64 19:10:00 Test Item Value Reference Range Interpretation Comments WBC (test code = WBC) 6.1 3.7-10.4 [facility] CenterUekidkuUITPSMSUYO0922-61-14 19:10:00 Test Item Value Reference Range Interpretation Comments MPV (test code = MPV) 7.9 7.4-10.4 [facility] CenterSmlonmrUTAQIHDYQR4422-43-16 19:10:00 Test Item Value Reference Range Interpretation Comments Platelet (test code = Platelet) 226 133-450 [facility] CenterNjlfsnyWOIUDBSLZP0354-43-36 19:10:00 Test Item Value Reference Range Interpretation Comments MCH (test code = MCH) 28.5 pg 27.0-31.0 [facility] CenterObapyjfHLRNJVYBCQ8362-69-55 19:10:00 Test Item Value Reference Range Interpretation Comments RDW (test code = RDW) 14.8 11.5-14.5 [facility] CenterVqyoqytQUUOUPOZTD3871-20-68 19:10:00 Test Item Value Reference Range Interpretation Comments MCHC (test code = MCHC) 33.2 32.0-36.0 [facility] CenterMtmygszTMHCPBSRJT1294-87-28 19:10:00 Test Item Value Reference Range Interpretation Comments Hct (test code = Hct) 30.8 36.0-48.0 [facility] CenterOlmlgibHLBEQFMTBS2385-59-45 19:10:00 Test Item Value Reference Range Interpretation Comments RBC (test code = RBC) 3.59 4.20-5.40 [facility] CenterRtbxrppAIJPQCPGZW7240-39-22 19:10:00 Test Item Value Reference Range Interpretation Comments Hgb (test code = Hgb) 10.2 12.0-16.0 [facility] CenterQzyacilMXFFLHUDZR2639-29-59 19:10:00 Test Item Value Reference Range Interpretation Comments MCV (test code = MCV) 85.9 80.0-98.0 [facility] CenterMcqioqrKKGHNCSYBD7419-25-78 19:10:00 Test Item Value Reference Range Interpretation Comments Eosinophils # (test code 0.1 See_Comment [A utomated message] The = Eosinophils #) system whic h generated this result tra nsmitted reference range : <=0.5. The reference r lv was not used to int erpret this result as normal/abnormal . [facility] CenterIzfetuqHLLEWCGUKG9065-54-32 19:10:00 Test Item Value Reference Range Interpretation Comments Monocytes # (test code 0.4 See_Comment [Aut omated message] The = Monocytes #) system which generated this result tra nsmitted reference range : <=0.8. The reference r lv was not used to int erpret this result as normal/abnormal . [facility] CenterDhrdtspKHASZWLXLV6062-85-81 19:10:00 Test Item Value Reference Range Interpretation Comments Segs-Bands # (test code = Segs-Bands #) 4.0 1.5-8.1 [facility] CenterNcfvwvrKXZNOGSZXU8176-80-69 19:10:00 Test Item Value Reference Range Interpretation Comments Lymphocytes # (test code = Lymphocytes 1.5 1.0-5.5 #) [facility] CenterUwuexbvWQZJLOESQY3072-66-08 19:10:00 Test Item Value Reference Range Interpretation Comments Basophils # (test code 0.0 See_Comment [Aut omated message] The = Basophils #) system which generated this result tra nsmitted reference range : <=0.2. The reference r lv was not used to int erpret this result as normal/abnormal . [facility] CenterUczwxhqMRFCVQJTLB8526-96-52 19:10:00 Test Item Value Reference Range Interpretation Comments Lymphocytes (test code = Lymphocytes) 25.0 20.0-40.0 [facility] CenterLrjltbjPVYYAYXYCS8060-50-06 19:10:00 Test Item Value Reference Range Interpretation Comments Monocytes (test code = Monocytes) 6.9 2.0-12.0 [facility] CenterTwwsmgwLWNANWRCZB1833-60-23 19:10:00 Test Item Value Reference Range Interpretation Comments Segs (test code = Segs) 65.5 45.0-75.0 [facility] CenterSdcsssvSSPOFYGZPX6803-13-85 19:10:00 Test Item Value Reference Range Interpretation Comments Basophils (test code = 0.6 See_Comment [Aut omated message] The Basophils) system which ge nerated this result tra nsmitted reference range : <=1.0. The reference r lv was not used to int erpret this result as normal/abnormal . [facility] CenterXbquiufKHMLFVFAGZ1962-51-97 19:10:00 Test Item Value Reference Range Interpretation Comments Eosinophils (test code = 2.0 See_Comment [A utomated message] The Eosinophils) system which ge nerated this result tra nsmitted reference range : <=4.0. The reference r lv was not used to int erpret this result as normal/abnormal . [facility] CenterVtozhyhEXOLBCRJKD4920-92-52 19:10:00 Test Item Value Reference Range Interpretation Comments WBC (test code = WBC) 6.1 3.7-10.4 [facility] CenterMbosfahJAOKRNALYE0106-16-14 19:10:00 Test Item Value Reference Range Interpretation Comments MPV (test code = MPV) 7.9 7.4-10.4 [facility] CenterXeehuemQVRPQCGVQX8225-03-69 19:10:00 Test Item Value Reference Range Interpretation Comments Platelet (test code = Platelet) 226 133-450 [facility] CenterAwnwvuqDTQBWLEWRW4781-75-48 19:10:00 Test Item Value Reference Range Interpretation Comments MCH (test code = MCH) 28.5 pg 27.0-31.0 [facility] CenterFimwchsDATJMZWTTM9526-97-24 19:10:00 Test Item Value Reference Range Interpretation Comments RDW (test code = RDW) 14.8 11.5-14.5 [facility] CenterHdmkibnTOBEKOBSGD9680-26-90 19:10:00 Test Item Value Reference Range Interpretation Comments MCHC (test code = MCHC) 33.2 32.0-36.0 [facility] CenterSoowudoWYIIFVMLIA7048-67-49 19:10:00 Test Item Value Reference Range Interpretation Comments Hct (test code = Hct) 30.8 36.0-48.0 [facility] CenterXxlccboHLFPJVHETV7555-23-20 19:10:00 Test Item Value Reference Range Interpretation Comments RBC (test code = RBC) 3.59 4.20-5.40 [facility] CenterSiyfbazBPZYLCPLXT3297-51-82 19:10:00 Test Item Value Reference Range Interpretation Comments Hgb (test code = Hgb) 10.2 12.0-16.0 [facility] CenterAnedukjRGMGWZJVMM0778-47-72 19:10:00 Test Item Value Reference Range Interpretation Comments MCV (test code = MCV) 85.9 80.0-98.0 [facility] CenterOmmkiwyDAWRWWKGTW5826-84-54 19:10:00 Test Item Value Reference Range Interpretation Comments Eosinophils # (test code 0.1 See_Comment [A utomated message] The = Eosinophils #) system whic h generated this result tra nsmitted reference range : <=0.5. The reference r lv was not used to int erpret this result as normal/abnormal . [facility] CenterTgeyzirIZDAMVHOOV9915-73-97 19:10:00 Test Item Value Reference Range Interpretation Comments Monocytes # (test code 0.4 See_Comment [Aut omated message] The = Monocytes #) system which generated this result tra nsmitted reference range : <=0.8. The reference r lv was not used to int erpret this result as normal/abnormal . [facility] CenterTuzmaqcVZAIRIXPTT8481-22-39 19:10:00 Test Item Value Reference Range Interpretation Comments Segs-Bands # (test code = Segs-Bands #) 4.0 1.5-8.1 [facility] CenterSaxazziABRAPRSCTN3308-64-10 19:10:00 Test Item Value Reference Range Interpretation Comments Lymphocytes # (test code = Lymphocytes 1.5 1.0-5.5 #) [facility] CenterLupdxgqXJXBWFYQDS9605-51-76 19:10:00 Test Item Value Reference Range Interpretation Comments Basophils # (test code 0.0 See_Comment [Aut omated message] The = Basophils #) system which generated this result tra nsmitted reference range : <=0.2. The reference r lv was not used to int erpret this result as normal/abnormal . [facility] CenterBhrmhuyJYLNBVMPZF2816-64-71 19:10:00 Test Item Value Reference Range Interpretation Comments Lymphocytes (test code = Lymphocytes) 25.0 20.0-40.0 [facility] CenterEgvvsilQWZYNMPLPK5745-99-63 19:10:00 Test Item Value Reference Range Interpretation Comments Monocytes (test code = Monocytes) 6.9 2.0-12.0 [facility] CenterZxghsngPWTJZQWZVV9953-60-55 19:10:00 Test Item Value Reference Range Interpretation Comments Segs (test code = Segs) 65.5 45.0-75.0 [facility] CenterHbjypplWDJVBDTCZK8410-37-46 19:10:00 Test Item Value Reference Range Interpretation Comments Basophils (test code = 0.6 See_Comment [Aut omated message] The Basophils) system which ge nerated this result tra nsmitted reference range : <=1.0. The reference r lv was not used to int erpret this result as normal/abnormal . [facility] CenterZnmslrcTRKAVLGAIK8115-70-30 19:10:00 Test Item Value Reference Range Interpretation Comments Eosinophils (test code = 2.0 See_Comment [A utomated message] The Eosinophils) system which ge nerated this result tra nsmitted reference range : <=4.0. The reference r lv was not used to int erpret this result as normal/abnormal . [facility] CenterMirlumzRUKLMPXRAG4024-93-07 19:10:00 Test Item Value Reference Range Interpretation Comments WBC (test code = WBC) 6.1 3.7-10.4 [facility] CenterVsyygwnFMUKSAKISJ5477-62-56 19:10:00 Test Item Value Reference Range Interpretation Comments MPV (test code = MPV) 7.9 7.4-10.4 [facility] CenterVzmoykuCYGYZOJOWH1521-56-87 19:10:00 Test Item Value Reference Range Interpretation Comments Platelet (test code = Platelet) 226 133-450 [facility] CenterZadatxxTCYDAKXEXV8947-71-66 19:10:00 Test Item Value Reference Range Interpretation Comments MCH (test code = MCH) 28.5 pg 27.0-31.0 [facility] CenterHruhegpCOSEABDWRV3865-97-53 19:10:00 Test Item Value Reference Range Interpretation Comments RDW (test code = RDW) 14.8 11.5-14.5 [facility] CenterSatnskgALPYQXLJNM6612-87-64 19:10:00 Test Item Value Reference Range Interpretation Comments MCHC (test code = MCHC) 33.2 32.0-36.0 [facility] CenterJnvtwyxEQSPCWOVIU4227-43-23 19:10:00 Test Item Value Reference Range Interpretation Comments Hct (test code = Hct) 30.8 36.0-48.0 [facility] CenterZjxbffzLZETATUELI8059-64-05 19:10:00 Test Item Value Reference Range Interpretation Comments RBC (test code = RBC) 3.59 4.20-5.40 [facility] CenterRwfqfvdQNKUFTOXHR2991-89-31 19:10:00 Test Item Value Reference Range Interpretation Comments Hgb (test code = Hgb) 10.2 12.0-16.0 [facility] CenterQwwbdcsKQLGEDGSZG4660-99-45 19:10:00 Test Item Value Reference Range Interpretation Comments MCV (test code = MCV) 85.9 80.0-98.0 [facility] CenterYorgfhhKBKKITWDFV5943-88-59 19:10:00 Test Item Value Reference Range Interpretation Comments Eosinophils # (test code 0.1 See_Comment [A utomated message] The = Eosinophils #) system whic h generated this result tra nsmitted reference range : <=0.5. The reference r lv was not used to int erpret this result as normal/abnormal . [facility] CenterQdxzgnpYBRIASYPOL5954-60-37 19:10:00 Test Item Value Reference Range Interpretation Comments Monocytes # (test code 0.4 See_Comment [Aut omated message] The = Monocytes #) system which generated this result tra nsmitted reference range : <=0.8. The reference r lv was not used to int erpret this result as normal/abnormal . [facility] CenterMvuipvoHKCWUTPMXP5661-68-23 19:10:00 Test Item Value Reference Range Interpretation Comments Segs-Bands # (test code = Segs-Bands #) 4.0 1.5-8.1 [facility] CenterVykxedvWRFMIQEZQM8325-84-62 19:10:00 Test Item Value Reference Range Interpretation Comments Lymphocytes # (test code = Lymphocytes 1.5 1.0-5.5 #) [facility] CenterAowdolvNNPAGADJHL3919-61-01 19:10:00 Test Item Value Reference Range Interpretation Comments Basophils # (test code 0.0 See_Comment [Aut omated message] The = Basophils #) system which generated this result tra nsmitted reference range : <=0.2. The reference r lv was not used to int erpret this result as normal/abnormal . [facility] CenterAtngajnEMMEZFDZFB2047-03-43 19:10:00 Test Item Value Reference Range Interpretation Comments Lymphocytes (test code = Lymphocytes) 25.0 20.0-40.0 [facility] CenterFbiugcwWMIWCJFBUA4007-75-55 19:10:00 Test Item Value Reference Range Interpretation Comments Monocytes (test code = Monocytes) 6.9 2.0-12.0 [facility] CenterYrgdygjIVVYFSDYDN5437-68-18 19:10:00 Test Item Value Reference Range Interpretation Comments Segs (test code = Segs) 65.5 45.0-75.0 [facility] CenterTtinafyDICJKVHEHZ5633-71-21 19:10:00 Test Item Value Reference Range Interpretation Comments Basophils (test code = 0.6 See_Comment [Aut omated message] The Basophils) system which ge nerated this result tra nsmitted reference range : <=1.0. The reference r lv was not used to int erpret this result as normal/abnormal . [facility] CenterYyzfijcRMOFUIVDZC3356-60-33 19:10:00 Test Item Value Reference Range Interpretation Comments Eosinophils (test code = 2.0 See_Comment [A utomated message] The Eosinophils) system which ge nerated this result tra nsmitted reference range : <=4.0. The reference r lv was not used to int erpret this result as normal/abnormal . [facility] CenterBjzogccBNYLMNNRYB6898-10-04 19:07:00 Test Item Value Reference Range Interpretation Comments Sed Rate (test code = 84 See_Comment [Auto mated message] The Sed Rate) system which ge nerated this result transmit neli reference range : <=20. The reference range was not used to interpr et this result as felipe l/abnormal. [facility] CenterEllicimOGQHCOXWPS7199-69-17 19:07:00 Test Item Value Reference Range Interpretation Comments Sed Rate (test code = 84 See_Comment [Auto mated message] The Sed Rate) system which ge nerated this result transmit neli reference range : <=20. The reference range was not used to interpr et this result as felipe l/abnormal. [facility] CenterVwimuwoLBTPQFWPIA9791-59-57 19:07:00 Test Item Value Reference Range Interpretation Comments Sed Rate (test code = 84 See_Comment [Auto mated message] The Sed Rate) system which ge nerated this result transmit neli reference range : <=20. The reference range was not used to interpr et this result as felipe l/abnormal. [facility] CenterXbhiogeKCFEPEGCMG7591-54-81 19:07:00 Test Item Value Reference Range Interpretation Comments Sed Rate (test code = 84 See_Comment [Auto mated message] The Sed Rate) system which ge nerated this result transmit neli reference range : <=20. The reference range was not used to interpr et this result as felipe l/abnormal. [facility] CenterCulrkupSDEIVIWJGP7265-93-91 19:07:00 Test Item Value Reference Range Interpretation Comments Sed Rate (test code = 84 See_Comment [Auto mated message] The Sed Rate) system which ge nerated this result transmit neli reference range : <=20. The reference range was not used to interpr et this result as felipe l/abnormal. [facility] CenterOijoewiLQGWZJVOJC9211-35-68 19:07:00 Test Item Value Reference Range Interpretation Comments Sed Rate (test code = 84 See_Comment [Auto mated message] The Sed Rate) system which ge nerated this result transmit neli reference range : <=20. The reference range was not used to interpr et this result as felipe l/abnormal. [facility] CenterQkwcosmAPDLFOUIXB1831-85-17 19:07:00 Test Item Value Reference Range Interpretation Comments Sed Rate (test code = 84 See_Comment [Auto mated message] The Sed Rate) system which ge nerated this result transmit neli reference range : <=20. The reference range was not used to interpr et this result as felipe l/abnormal. [facility] CenterRwkcqvqPUDNUWIJIJ6874-41-54 19:07:00 Test Item Value Reference Range Interpretation Comments Sed Rate (test code = 84 See_Comment [Auto mated message] The Sed Rate) system which ge nerated this result transmit neli reference range : <=20. The reference range was not used to interpr et this result as felipe l/abnormal. [facility] CenterOomaiftPYRXNLWMUO8473-13-06 19:07:00 Test Item Value Reference Range Interpretation Comments Sed Rate (test code = 84 See_Comment [Auto mated message] The Sed Rate) system which ge nerated this result transmit neli reference range : <=20. The reference range was not used to interpr et this result as felipe l/abnormal. [facility] CenterKltdbtwMNYKCXNKEL0006-58-48 19:07:00 Test Item Value Reference Range Interpretation Comments Sed Rate (test code = 84 See_Comment [Auto mated message] The Sed Rate) system which ge nerated this result transmit neli reference range : <=20. The reference range was not used to interpr et this result as fleipe l/abnormal. [facility] CenterXhjrolrPXGSZRAVDF2999-35-64 19:07:00 Test Item Value Reference Range Interpretation Comments Sed Rate (test code = 84 See_Comment [Auto mated message] The Sed Rate) system which ge nerated this result transmit neli reference range : <=20. The reference range was not used to interpr et this result as felipe l/abnormal. [facility]2017-02-20 18:33:00 Test Item Value Reference Range Interpretation Comments eGFR (test code = eGFR) 91 [facility]2017-02-20 18:33:00 Test Item Value Reference Range Interpretation Comments B/C Ratio (test code = B/C Ratio) 19 6-25 [facility]2017-02-20 18:33:00 Test Item Value Reference Range Interpretation Comments A/G Ratio (test code = A/G Ratio) 0.6 0.7-1.6 [facility]2017-02-20 18:33:00 Test Item Value Reference Range Interpretation Comments Globulin (test code = Globulin) 4.7 2.7-4.2 [facility]2017-02-20 18:33:00 Test Item Value Reference Range Interpretation Comments AGAP (test code = AGAP) 12.0 10.0-20.0 [facility]2017-02-20 18:33:00 Test Item Value Reference Range Interpretation Comments Bili Total (test code = Bili Total) 0.2 0.2-1.3 [facility]2017-02-20 18:33:00 Test Item Value Reference Range Interpretation Comments Alk Phos (test code = Alk Phos) 116 39-136 [facility]2017-02-20 18:33:00 Test Item Value Reference Range Interpretation Comments CO2 (test code = CO2) 30 24-32 [facility]2017-02-20 18:33:00 Test Item Value Reference Range Interpretation Comments Chloride Lvl (test code = Chloride Lvl) 99 95-109 [facility]2017-02-20 18:33:00 Test Item Value Reference Range Interpretation Comments BUN (test code = BUN) 14 7-22 [facility]2017-02-20 18:33:00 Test Item Value Reference Range Interpretation Comments Glucose Lvl (test code = Glucose Lvl) 128 70-99 [facility]2017-02-20 18:33:00 Test Item Value Reference Range Interpretation Comments Creatinine Lvl (test code = Creatinine 0.74 0.50-1.40 Lvl) [facility]2017-02-20 18:33:00 Test Item Value Reference Range Interpretation Comments Potassium Lvl (test code = Potassium 5.0 3.5-5.1 Lvl) [facility]2017-02-20 18:33:00 Test Item Value Reference Range Interpretation Comments Sodium Lvl (test code = Sodium Lvl) 136 135-145 [facility]2017-02-20 18:33:00 Test Item Value Reference Range Interpretation Comments Total Protein (test code = Total 7.7 6.4-8.4 Protein) [facility]2017-02-20 18:33:00 Test Item Value Reference Range Interpretation Comments Calcium Lvl (test code = Calcium Lvl) 8.7 8.5-10.5 [facility]2017-02-20 18:33:00 Test Item Value Reference Range Interpretation Comments ALT (test code = ALT) 21 See_Comment [Auto mated message] The system which ge nerated this result transmit neli reference range : <=65. The reference range was not used to interpr et this result as felipe l/abnormal. [facility]2017-02-20 18:33:00 Test Item Value Reference Range Interpretation Comments Albumin Lvl (test code = Albumin Lvl) 3.0 3.5-5.0 [facility]2017-02-20 18:33:00 Test Item Value Reference Range Interpretation Comments AST (test code = AST) 27 See_Comment [Auto mated message] The system which ge nerated this result transmit neli reference range : <=37. The reference range was not used to interpr et this result as felipe l/abnormal. [id number] 18:33:00 Test Item Value Reference Range Interpretation Comments C-REACTIVE PROTEIN (test code = 44.4 C-REACTIVE PROTEIN) [facility]2017-02-20 18:33:00 Test Item Value Reference Range Interpretation Comments Lactic Acid Lvl (test code = Lactic 1.3 0.5-2.2 Acid Lvl) [facility]2017-02-20 18:33:00 Test Item Value Reference Range Interpretation Comments eGFR (test code = eGFR) 91 [facility]2017-02-20 18:33:00 Test Item Value Reference Range Interpretation Comments B/C Ratio (test code = B/C Ratio) 19 6-25 [facility]2017-02-20 18:33:00 Test Item Value Reference Range Interpretation Comments A/G Ratio (test code = A/G Ratio) 0.6 0.7-1.6 [facility]2017-02-20 18:33:00 Test Item Value Reference Range Interpretation Comments Globulin (test code = Globulin) 4.7 2.7-4.2 [facility]2017-02-20 18:33:00 Test Item Value Reference Range Interpretation Comments AGAP (test code = AGAP) 12.0 10.0-20.0 [facility]2017-02-20 18:33:00 Test Item Value Reference Range Interpretation Comments Bili Total (test code = Bili Total) 0.2 0.2-1.3 [facility]2017-02-20 18:33:00 Test Item Value Reference Range Interpretation Comments Alk Phos (test code = Alk Phos) 116 39-136 [facility]2017-02-20 18:33:00 Test Item Value Reference Range Interpretation Comments CO2 (test code = CO2) 30 24-32 [facility]2017-02-20 18:33:00 Test Item Value Reference Range Interpretation Comments Chloride Lvl (test code = Chloride Lvl) 99 95-109 [facility]2017-02-20 18:33:00 Test Item Value Reference Range Interpretation Comments BUN (test code = BUN) 14 7-22 [facility]2017-02-20 18:33:00 Test Item Value Reference Range Interpretation Comments Glucose Lvl (test code = Glucose Lvl) 128 70-99 [facility]2017-02-20 18:33:00 Test Item Value Reference Range Interpretation Comments Creatinine Lvl (test code = Creatinine 0.74 0.50-1.40 Lvl) [facility]2017-02-20 18:33:00 Test Item Value Reference Range Interpretation Comments Potassium Lvl (test code = Potassium 5.0 3.5-5.1 Lvl) [facility]2017-02-20 18:33:00 Test Item Value Reference Range Interpretation Comments Sodium Lvl (test code = Sodium Lvl) 136 135-145 [facility]2017-02-20 18:33:00 Test Item Value Reference Range Interpretation Comments Total Protein (test code = Total 7.7 6.4-8.4 Protein) [facility]2017-02-20 18:33:00 Test Item Value Reference Range Interpretation Comments Calcium Lvl (test code = Calcium Lvl) 8.7 8.5-10.5 [facility]2017-02-20 18:33:00 Test Item Value Reference Range Interpretation Comments ALT (test code = ALT) 21 See_Comment [Auto mated message] The system which ge nerated this result transmit neli reference range : <=65. The reference range was not used to interpr et this result as felipe l/abnormal. [facility]2017-02-20 18:33:00 Test Item Value Reference Range Interpretation Comments Albumin Lvl (test code = Albumin Lvl) 3.0 3.5-5.0 [facility]2017-02-20 18:33:00 Test Item Value Reference Range Interpretation Comments AST (test code = AST) 27 See_Comment [Auto mated message] The system which ge nerated this result transmit neli reference range : <=37. The reference range was not used to interpr et this result as felipe l/abnormal. [id number] 18:33:00 Test Item Value Reference Range Interpretation Comments C-REACTIVE PROTEIN (test code = 44.4 C-REACTIVE PROTEIN) [facility]2017-02-20 18:33:00 Test Item Value Reference Range Interpretation Comments Lactic Acid Lvl (test code = Lactic 1.3 0.5-2.2 Acid Lvl) [facility]2017-02-20 18:33:00 Test Item Value Reference Range Interpretation Comments eGFR (test code = eGFR) 91 [facility]2017-02-20 18:33:00 Test Item Value Reference Range Interpretation Comments B/C Ratio (test code = B/C Ratio) 19 6-25 [facility]2017-02-20 18:33:00 Test Item Value Reference Range Interpretation Comments A/G Ratio (test code = A/G Ratio) 0.6 0.7-1.6 [facility]2017-02-20 18:33:00 Test Item Value Reference Range Interpretation Comments Globulin (test code = Globulin) 4.7 2.7-4.2 [facility]2017-02-20 18:33:00 Test Item Value Reference Range Interpretation Comments AGAP (test code = AGAP) 12.0 10.0-20.0 [facility]2017-02-20 18:33:00 Test Item Value Reference Range Interpretation Comments Bili Total (test code = Bili Total) 0.2 0.2-1.3 [facility]2017-02-20 18:33:00 Test Item Value Reference Range Interpretation Comments Alk Phos (test code = Alk Phos) 116 39-136 [facility]2017-02-20 18:33:00 Test Item Value Reference Range Interpretation Comments CO2 (test code = CO2) 30 24-32 [facility]2017-02-20 18:33:00 Test Item Value Reference Range Interpretation Comments Chloride Lvl (test code = Chloride Lvl) 99 95-109 [facility]2017-02-20 18:33:00 Test Item Value Reference Range Interpretation Comments BUN (test code = BUN) 14 7-22 [facility]2017-02-20 18:33:00 Test Item Value Reference Range Interpretation Comments Glucose Lvl (test code = Glucose Lvl) 128 70-99 [facility]2017-02-20 18:33:00 Test Item Value Reference Range Interpretation Comments Creatinine Lvl (test code = Creatinine 0.74 0.50-1.40 Lvl) [facility]2017-02-20 18:33:00 Test Item Value Reference Range Interpretation Comments Potassium Lvl (test code = Potassium 5.0 3.5-5.1 Lvl) [facility]2017-02-20 18:33:00 Test Item Value Reference Range Interpretation Comments Sodium Lvl (test code = Sodium Lvl) 136 135-145 [facility]2017-02-20 18:33:00 Test Item Value Reference Range Interpretation Comments Total Protein (test code = Total 7.7 6.4-8.4 Protein) [facility]2017-02-20 18:33:00 Test Item Value Reference Range Interpretation Comments Calcium Lvl (test code = Calcium Lvl) 8.7 8.5-10.5 [facility]2017-02-20 18:33:00 Test Item Value Reference Range Interpretation Comments ALT (test code = ALT) 21 See_Comment [Auto mated message] The system which ge nerated this result transmit neli reference range : <=65. The reference range was not used to interpr et this result as felipe l/abnormal. [facility]2017-02-20 18:33:00 Test Item Value Reference Range Interpretation Comments Albumin Lvl (test code = Albumin Lvl) 3.0 3.5-5.0 [facility]2017-02-20 18:33:00 Test Item Value Reference Range Interpretation Comments AST (test code = AST) 27 See_Comment [Auto mated message] The system which ge nerated this result transmit neli reference range : <=37. The reference range was not used to interpr et this result as felipe l/abnormal. [id number] 18:33:00 Test Item Value Reference Range Interpretation Comments C-REACTIVE PROTEIN (test code = 44.4 C-REACTIVE PROTEIN) [facility]2017-02-20 18:33:00 Test Item Value Reference Range Interpretation Comments Lactic Acid Lvl (test code = Lactic 1.3 0.5-2.2 Acid Lvl) [facility]2017-02-20 18:33:00 Test Item Value Reference Range Interpretation Comments eGFR (test code = eGFR) 91 [facility]2017-02-20 18:33:00 Test Item Value Reference Range Interpretation Comments B/C Ratio (test code = B/C Ratio) 19 6-25 [facility]2017-02-20 18:33:00 Test Item Value Reference Range Interpretation Comments A/G Ratio (test code = A/G Ratio) 0.6 0.7-1.6 [facility]2017-02-20 18:33:00 Test Item Value Reference Range Interpretation Comments Globulin (test code = Globulin) 4.7 2.7-4.2 [facility]2017-02-20 18:33:00 Test Item Value Reference Range Interpretation Comments AGAP (test code = AGAP) 12.0 10.0-20.0 [facility]2017-02-20 18:33:00 Test Item Value Reference Range Interpretation Comments Bili Total (test code = Bili Total) 0.2 0.2-1.3 [facility]2017-02-20 18:33:00 Test Item Value Reference Range Interpretation Comments Alk Phos (test code = Alk Phos) 116 39-136 [facility]2017-02-20 18:33:00 Test Item Value Reference Range Interpretation Comments CO2 (test code = CO2) 30 24-32 [facility]2017-02-20 18:33:00 Test Item Value Reference Range Interpretation Comments Chloride Lvl (test code = Chloride Lvl) 99 95-109 [facility]2017-02-20 18:33:00 Test Item Value Reference Range Interpretation Comments BUN (test code = BUN) 14 7-22 [facility]2017-02-20 18:33:00 Test Item Value Reference Range Interpretation Comments Glucose Lvl (test code = Glucose Lvl) 128 70-99 [facility]2017-02-20 18:33:00 Test Item Value Reference Range Interpretation Comments Creatinine Lvl (test code = Creatinine 0.74 0.50-1.40 Lvl) [facility]2017-02-20 18:33:00 Test Item Value Reference Range Interpretation Comments Potassium Lvl (test code = Potassium 5.0 3.5-5.1 Lvl) [facility]2017-02-20 18:33:00 Test Item Value Reference Range Interpretation Comments Sodium Lvl (test code = Sodium Lvl) 136 135-145 [facility]2017-02-20 18:33:00 Test Item Value Reference Range Interpretation Comments Total Protein (test code = Total 7.7 6.4-8.4 Protein) [facility]2017-02-20 18:33:00 Test Item Value Reference Range Interpretation Comments Calcium Lvl (test code = Calcium Lvl) 8.7 8.5-10.5 [facility]2017-02-20 18:33:00 Test Item Value Reference Range Interpretation Comments ALT (test code = ALT) 21 See_Comment [Auto mated message] The system which ge nerated this result transmit neli reference range : <=65. The reference range was not used to interpr et this result as felipe l/abnormal. [facility] [id number] 18:33:00 Test Item Value Reference Range Interpretation Comments Albumin Lvl (test code = Albumin Lvl) 3.0 3.5-5.0 [facility] [id number] 18:33:00 Test Item Value Reference Range Interpretation Comments AST (test code = AST) 27 See_Comment [Auto mated message] The system which ge nerated this result transmit neli reference range : <=37. The reference range was not used to interpr et this result as felipe l/abnormal. [id number] 18:33:00 Test Item Value Reference Range Interpretation Comments C-REACTIVE PROTEIN (test code = 44.4 C-REACTIVE PROTEIN) [facility] [id number] 18:33:00 Test Item Value Reference Range Interpretation Comments Lactic Acid Lvl (test code = Lactic 1.3 0.5-2.2 Acid Lvl) [facility] [id number] 18:33:00 Test Item Value Reference Range Interpretation Comments eGFR (test code = eGFR) 91 [facility] [id number] 18:33:00 Test Item Value Reference Range Interpretation Comments B/C Ratio (test code = B/C Ratio) 19 6-25 [facility] [id number] 18:33:00 Test Item Value Reference Range Interpretation Comments A/G Ratio (test code = A/G Ratio) 0.6 0.7-1.6 [facility] [id number] 18:33:00 Test Item Value Reference Range Interpretation Comments Globulin (test code = Globulin) 4.7 2.7-4.2 [facility] [id number] 18:33:00 Test Item Value Reference Range Interpretation Comments AGAP (test code = AGAP) 12.0 10.0-20.0 [facility] [id number] 18:33:00 Test Item Value Reference Range Interpretation Comments Bili Total (test code = Bili Total) 0.2 0.2-1.3 [facility] [id number] 18:33:00 Test Item Value Reference Range Interpretation Comments Alk Phos (test code = Alk Phos) 116 39-136 [facility]2017-02-20 18:33:00 Test Item Value Reference Range Interpretation Comments CO2 (test code = CO2) 30 24-32 [facility]2017-02-20 18:33:00 Test Item Value Reference Range Interpretation Comments Chloride Lvl (test code = Chloride Lvl) 99 95-109 [facility]2017-02-20 18:33:00 Test Item Value Reference Range Interpretation Comments BUN (test code = BUN) 14 7-22 [facility]2017-02-20 18:33:00 Test Item Value Reference Range Interpretation Comments Glucose Lvl (test code = Glucose Lvl) 128 70-99 [facility]2017-02-20 18:33:00 Test Item Value Reference Range Interpretation Comments Creatinine Lvl (test code = Creatinine 0.74 0.50-1.40 Lvl) [facility]2017-02-20 18:33:00 Test Item Value Reference Range Interpretation Comments Potassium Lvl (test code = Potassium 5.0 3.5-5.1 Lvl) [facility]2017-02-20 18:33:00 Test Item Value Reference Range Interpretation Comments Sodium Lvl (test code = Sodium Lvl) 136 135-145 [facility]2017-02-20 18:33:00 Test Item Value Reference Range Interpretation Comments Total Protein (test code = Total 7.7 6.4-8.4 Protein) [facility]2017-02-20 18:33:00 Test Item Value Reference Range Interpretation Comments Calcium Lvl (test code = Calcium Lvl) 8.7 8.5-10.5 [facility]2017-02-20 18:33:00 Test Item Value Reference Range Interpretation Comments ALT (test code = ALT) 21 See_Comment [Auto mated message] The system which ge nerated this result transmit neli reference range : <=65. The reference range was not used to interpr et this result as felipe l/abnormal. [facility]2017-02-20 18:33:00 Test Item Value Reference Range Interpretation Comments Albumin Lvl (test code = Albumin Lvl) 3.0 3.5-5.0 [facility]2017-02-20 18:33:00 Test Item Value Reference Range Interpretation Comments AST (test code = AST) 27 See_Comment [Auto mated message] The system which ge nerated this result transmit neli reference range : <=37. The reference range was not used to interpr et this result as felipe l/abnormal. [id number] 18:33:00 Test Item Value Reference Range Interpretation Comments C-REACTIVE PROTEIN (test code = 44.4 C-REACTIVE PROTEIN) [facility]2017-02-20 18:33:00 Test Item Value Reference Range Interpretation Comments Lactic Acid Lvl (test code = Lactic 1.3 0.5-2.2 Acid Lvl) [facility]2017-02-20 18:33:00 Test Item Value Reference Range Interpretation Comments eGFR (test code = eGFR) 91 [facility]2017-02-20 18:33:00 Test Item Value Reference Range Interpretation Comments B/C Ratio (test code = B/C Ratio) 19 6-25 [facility]2017-02-20 18:33:00 Test Item Value Reference Range Interpretation Comments A/G Ratio (test code = A/G Ratio) 0.6 0.7-1.6 [facility]2017-02-20 18:33:00 Test Item Value Reference Range Interpretation Comments Globulin (test code = Globulin) 4.7 2.7-4.2 [facility]2017-02-20 18:33:00 Test Item Value Reference Range Interpretation Comments AGAP (test code = AGAP) 12.0 10.0-20.0 [facility]2017-02-20 18:33:00 Test Item Value Reference Range Interpretation Comments Bili Total (test code = Bili Total) 0.2 0.2-1.3 [facility]2017-02-20 18:33:00 Test Item Value Reference Range Interpretation Comments Alk Phos (test code = Alk Phos) 116 39-136 [facility]2017-02-20 18:33:00 Test Item Value Reference Range Interpretation Comments CO2 (test code = CO2) 30 24-32 [facility]2017-02-20 18:33:00 Test Item Value Reference Range Interpretation Comments Chloride Lvl (test code = Chloride Lvl) 99 95-109 [facility]2017-02-20 18:33:00 Test Item Value Reference Range Interpretation Comments BUN (test code = BUN) 14 7-22 [facility]2017-02-20 18:33:00 Test Item Value Reference Range Interpretation Comments Glucose Lvl (test code = Glucose Lvl) 128 70-99 [facility]2017-02-20 18:33:00 Test Item Value Reference Range Interpretation Comments Creatinine Lvl (test code = Creatinine 0.74 0.50-1.40 Lvl) [facility]2017-02-20 18:33:00 Test Item Value Reference Range Interpretation Comments Potassium Lvl (test code = Potassium 5.0 3.5-5.1 Lvl) [facility]2017-02-20 18:33:00 Test Item Value Reference Range Interpretation Comments Sodium Lvl (test code = Sodium Lvl) 136 135-145 [facility]2017-02-20 18:33:00 Test Item Value Reference Range Interpretation Comments Total Protein (test code = Total 7.7 6.4-8.4 Protein) [facility]2017-02-20 18:33:00 Test Item Value Reference Range Interpretation Comments Calcium Lvl (test code = Calcium Lvl) 8.7 8.5-10.5 [facility]2017-02-20 18:33:00 Test Item Value Reference Range Interpretation Comments ALT (test code = ALT) 21 See_Comment [Auto mated message] The system which ge nerated this result transmit neli reference range : <=65. The reference range was not used to interpr et this result as felipe l/abnormal. [facility]2017-02-20 18:33:00 Test Item Value Reference Range Interpretation Comments Albumin Lvl (test code = Albumin Lvl) 3.0 3.5-5.0 [facility]2017-02-20 18:33:00 Test Item Value Reference Range Interpretation Comments AST (test code = AST) 27 See_Comment [Auto mated message] The system which ge nerated this result transmit neli reference range : <=37. The reference range was not used to interpr et this result as felipe l/abnormal. [id number] 18:33:00 Test Item Value Reference Range Interpretation Comments C-REACTIVE PROTEIN (test code = 44.4 C-REACTIVE PROTEIN) [facility]2017-02-20 18:33:00 Test Item Value Reference Range Interpretation Comments Lactic Acid Lvl (test code = Lactic 1.3 0.5-2.2 Acid Lvl) [facility]2017-02-20 18:33:00 Test Item Value Reference Range Interpretation Comments eGFR (test code = eGFR) 91 [facility]2017-02-20 18:33:00 Test Item Value Reference Range Interpretation Comments B/C Ratio (test code = B/C Ratio) 19 6-25 [facility]2017-02-20 18:33:00 Test Item Value Reference Range Interpretation Comments A/G Ratio (test code = A/G Ratio) 0.6 0.7-1.6 [facility]2017-02-20 18:33:00 Test Item Value Reference Range Interpretation Comments Globulin (test code = Globulin) 4.7 2.7-4.2 [facility]2017-02-20 18:33:00 Test Item Value Reference Range Interpretation Comments AGAP (test code = AGAP) 12.0 10.0-20.0 [facility]2017-02-20 18:33:00 Test Item Value Reference Range Interpretation Comments Bili Total (test code = Bili Total) 0.2 0.2-1.3 [facility]2017-02-20 18:33:00 Test Item Value Reference Range Interpretation Comments Alk Phos (test code = Alk Phos) 116 39-136 [facility]2017-02-20 18:33:00 Test Item Value Reference Range Interpretation Comments CO2 (test code = CO2) 30 24-32 [facility]2017-02-20 18:33:00 Test Item Value Reference Range Interpretation Comments Chloride Lvl (test code = Chloride Lvl) 99 95-109 [facility]2017-02-20 18:33:00 Test Item Value Reference Range Interpretation Comments BUN (test code = BUN) 14 7-22 [facility]2017-02-20 18:33:00 Test Item Value Reference Range Interpretation Comments Glucose Lvl (test code = Glucose Lvl) 128 70-99 [facility]2017-02-20 18:33:00 Test Item Value Reference Range Interpretation Comments Creatinine Lvl (test code = Creatinine 0.74 0.50-1.40 Lvl) [facility]2017-02-20 18:33:00 Test Item Value Reference Range Interpretation Comments Potassium Lvl (test code = Potassium 5.0 3.5-5.1 Lvl) [facility]2017-02-20 18:33:00 Test Item Value Reference Range Interpretation Comments Sodium Lvl (test code = Sodium Lvl) 136 135-145 [facility]2017-02-20 18:33:00 Test Item Value Reference Range Interpretation Comments Total Protein (test code = Total 7.7 6.4-8.4 Protein) [facility]2017-02-20 18:33:00 Test Item Value Reference Range Interpretation Comments Calcium Lvl (test code = Calcium Lvl) 8.7 8.5-10.5 [facility]2017-02-20 18:33:00 Test Item Value Reference Range Interpretation Comments ALT (test code = ALT) 21 See_Comment [Auto mated message] The system which ge nerated this result transmit neli reference range : <=65. The reference range was not used to interpr et this result as felipe l/abnormal. [facility]2017-02-20 18:33:00 Test Item Value Reference Range Interpretation Comments Albumin Lvl (test code = Albumin Lvl) 3.0 3.5-5.0 [facility]2017-02-20 18:33:00 Test Item Value Reference Range Interpretation Comments AST (test code = AST) 27 See_Comment [Auto mated message] The system which ge nerated this result transmit neli reference range : <=37. The reference range was not used to interpr et this result as felipe l/abnormal. [id number] 18:33:00 Test Item Value Reference Range Interpretation Comments C-REACTIVE PROTEIN (test code = 44.4 C-REACTIVE PROTEIN) [facility]2017-02-20 18:33:00 Test Item Value Reference Range Interpretation Comments Lactic Acid Lvl (test code = Lactic 1.3 0.5-2.2 Acid Lvl) [facility]2017-02-20 18:33:00 Test Item Value Reference Range Interpretation Comments eGFR (test code = eGFR) 91 [facility]2017-02-20 18:33:00 Test Item Value Reference Range Interpretation Comments B/C Ratio (test code = B/C Ratio) 19 6-25 [facility]2017-02-20 18:33:00 Test Item Value Reference Range Interpretation Comments A/G Ratio (test code = A/G Ratio) 0.6 0.7-1.6 [facility]2017-02-20 18:33:00 Test Item Value Reference Range Interpretation Comments Globulin (test code = Globulin) 4.7 2.7-4.2 [facility]2017-02-20 18:33:00 Test Item Value Reference Range Interpretation Comments AGAP (test code = AGAP) 12.0 10.0-20.0 [facility]2017-02-20 18:33:00 Test Item Value Reference Range Interpretation Comments Bili Total (test code = Bili Total) 0.2 0.2-1.3 [facility]2017-02-20 18:33:00 Test Item Value Reference Range Interpretation Comments Alk Phos (test code = Alk Phos) 116 39-136 [facility]2017-02-20 18:33:00 Test Item Value Reference Range Interpretation Comments CO2 (test code = CO2) 30 24-32 [facility]2017-02-20 18:33:00 Test Item Value Reference Range Interpretation Comments Chloride Lvl (test code = Chloride Lvl) 99 95-109 [facility]2017-02-20 18:33:00 Test Item Value Reference Range Interpretation Comments BUN (test code = BUN) 14 7-22 [facility]2017-02-20 18:33:00 Test Item Value Reference Range Interpretation Comments Glucose Lvl (test code = Glucose Lvl) 128 70-99 [facility]2017-02-20 18:33:00 Test Item Value Reference Range Interpretation Comments Creatinine Lvl (test code = Creatinine 0.74 0.50-1.40 Lvl) [facility]2017-02-20 18:33:00 Test Item Value Reference Range Interpretation Comments Potassium Lvl (test code = Potassium 5.0 3.5-5.1 Lvl) [facility]2017-02-20 18:33:00 Test Item Value Reference Range Interpretation Comments Sodium Lvl (test code = Sodium Lvl) 136 135-145 [facility]2017-02-20 18:33:00 Test Item Value Reference Range Interpretation Comments Total Protein (test code = Total 7.7 6.4-8.4 Protein) [facility]2017-02-20 18:33:00 Test Item Value Reference Range Interpretation Comments Calcium Lvl (test code = Calcium Lvl) 8.7 8.5-10.5 [facility]2017-02-20 18:33:00 Test Item Value Reference Range Interpretation Comments ALT (test code = ALT) 21 See_Comment [Auto mated message] The system which ge nerated this result transmit neli reference range : <=65. The reference range was not used to interpr et this result as felipe l/abnormal. [facility]2017-02-20 18:33:00 Test Item Value Reference Range Interpretation Comments Albumin Lvl (test code = Albumin Lvl) 3.0 3.5-5.0 [facility]2017-02-20 18:33:00 Test Item Value Reference Range Interpretation Comments AST (test code = AST) 27 See_Comment [Auto mated message] The system which Emotive nerated this result transmit neli reference range : <=37. The reference range was not used to interpr et this result as felipe l/abnormal. [facility] 18:33:00 Test Item Value Reference Range Interpretation Comments C-REACTIVE PROTEIN (test code = 44.4 C-REACTIVE PROTEIN) [facility]2017-02-20 18:33:00 Test Item Value Reference Range Interpretation Comments Lactic Acid Lvl (test code = Lactic 1.3 0.5-2.2 Acid Lvl) [facility]2017-02-20 18:33:00 Test Item Value Reference Range Interpretation Comments eGFR (test code = eGFR) 91 [facility]2017-02-20 18:33:00 Test Item Value Reference Range Interpretation Comments B/C Ratio (test code = B/C Ratio) 19 6-25 [facility]2017-02-20 18:33:00 Test Item Value Reference Range Interpretation Comments A/G Ratio (test code = A/G Ratio) 0.6 0.7-1.6 [facility]2017-02-20 18:33:00 Test Item Value Reference Range Interpretation Comments Globulin (test code = Globulin) 4.7 2.7-4.2 [facility]2017-02-20 18:33:00 Test Item Value Reference Range Interpretation Comments AGAP (test code = AGAP) 12.0 10.0-20.0 [facility]2017-02-20 18:33:00 Test Item Value Reference Range Interpretation Comments Bili Total (test code = Bili Total) 0.2 0.2-1.3 [facility]2017-02-20 18:33:00 Test Item Value Reference Range Interpretation Comments Alk Phos (test code = Alk Phos) 116 39-136 [facility]2017-02-20 18:33:00 Test Item Value Reference Range Interpretation Comments CO2 (test code = CO2) 30 24-32 [facility]2017-02-20 18:33:00 Test Item Value Reference Range Interpretation Comments Chloride Lvl (test code = Chloride Lvl) 99 95-109 [facility]2017-02-20 18:33:00 Test Item Value Reference Range Interpretation Comments BUN (test code = BUN) 14 7-22 [facility]2017-02-20 18:33:00 Test Item Value Reference Range Interpretation Comments Glucose Lvl (test code = Glucose Lvl) 128 70-99 [facility]2017-02-20 18:33:00 Test Item Value Reference Range Interpretation Comments Creatinine Lvl (test code = Creatinine 0.74 0.50-1.40 Lvl) [facility]2017-02-20 18:33:00 Test Item Value Reference Range Interpretation Comments Potassium Lvl (test code = Potassium 5.0 3.5-5.1 Lvl) [facility]2017-02-20 18:33:00 Test Item Value Reference Range Interpretation Comments Sodium Lvl (test code = Sodium Lvl) 136 135-145 [facility]2017-02-20 18:33:00 Test Item Value Reference Range Interpretation Comments Total Protein (test code = Total 7.7 6.4-8.4 Protein) [facility]2017-02-20 18:33:00 Test Item Value Reference Range Interpretation Comments Calcium Lvl (test code = Calcium Lvl) 8.7 8.5-10.5 [facility]2017-02-20 18:33:00 Test Item Value Reference Range Interpretation Comments ALT (test code = ALT) 21 See_Comment [Auto mated message] The system which ge nerated this result transmit neli reference range : <=65. The reference range was not used to interpr et this result as felipe l/abnormal. [facility]2017-02-20 18:33:00 Test Item Value Reference Range Interpretation Comments Albumin Lvl (test code = Albumin Lvl) 3.0 3.5-5.0 [facility]2017-02-20 18:33:00 Test Item Value Reference Range Interpretation Comments AST (test code = AST) 27 See_Comment [Auto mated message] The system which ge nerated this result transmit neli reference range : <=37. The reference range was not used to interpr et this result as felipe l/abnormal. [facility]FqlmapiBYAJONWDQQ7770-[facility] 18:33:00 Test Item Value Reference Range Interpretation Comments C-REACTIVE PROTEIN (test code = 44.4 C-REACTIVE PROTEIN) [facility]2017-02-20 18:33:00 Test Item Value Reference Range Interpretation Comments Lactic Acid Lvl (test code = Lactic 1.3 0.5-2.2 Acid Lvl) [facility]2017-02-20 18:33:00 Test Item Value Reference Range Interpretation Comments eGFR (test code = eGFR) 91 [facility]2017-02-20 18:33:00 Test Item Value Reference Range Interpretation Comments B/C Ratio (test code = B/C Ratio) 19 6-25 [facility]2017-02-20 18:33:00 Test Item Value Reference Range Interpretation Comments A/G Ratio (test code = A/G Ratio) 0.6 0.7-1.6 [facility]2017-02-20 18:33:00 Test Item Value Reference Range Interpretation Comments Globulin (test code = Globulin) 4.7 2.7-4.2 [facility]2017-02-20 18:33:00 Test Item Value Reference Range Interpretation Comments AGAP (test code = AGAP) 12.0 10.0-20.0 [facility]2017-02-20 18:33:00 Test Item Value Reference Range Interpretation Comments Bili Total (test code = Bili Total) 0.2 0.2-1.3 [facility]2017-02-20 18:33:00 Test Item Value Reference Range Interpretation Comments Alk Phos (test code = Alk Phos) 116 39-136 [facility]2017-02-20 18:33:00 Test Item Value Reference Range Interpretation Comments CO2 (test code = CO2) 30 24-32 [facility]2017-02-20 18:33:00 Test Item Value Reference Range Interpretation Comments Chloride Lvl (test code = Chloride Lvl) 99 95-109 [facility]2017-02-20 18:33:00 Test Item Value Reference Range Interpretation Comments BUN (test code = BUN) 14 7-22 [facility]2017-02-20 18:33:00 Test Item Value Reference Range Interpretation Comments Glucose Lvl (test code = Glucose Lvl) 128 70-99 [facility]2017-02-20 18:33:00 Test Item Value Reference Range Interpretation Comments Creatinine Lvl (test code = Creatinine 0.74 0.50-1.40 Lvl) [facility]2017-02-20 18:33:00 Test Item Value Reference Range Interpretation Comments Potassium Lvl (test code = Potassium 5.0 3.5-5.1 Lvl) [facility]2017-02-20 18:33:00 Test Item Value Reference Range Interpretation Comments Sodium Lvl (test code = Sodium Lvl) 136 135-145 [facility]2017-02-20 18:33:00 Test Item Value Reference Range Interpretation Comments Total Protein (test code = Total 7.7 6.4-8.4 Protein) [facility]2017-02-20 18:33:00 Test Item Value Reference Range Interpretation Comments Calcium Lvl (test code = Calcium Lvl) 8.7 8.5-10.5 [facility]2017-02-20 18:33:00 Test Item Value Reference Range Interpretation Comments ALT (test code = ALT) 21 See_Comment [Auto mated message] The system which ge nerated this result transmit neli reference range : <=65. The reference range was not used to interpr et this result as felipe l/abnormal. [facility] [id number] 18:33:00 Test Item Value Reference Range Interpretation Comments Albumin Lvl (test code = Albumin Lvl) 3.0 3.5-5.0 [facility]rapevineImpeto MedicalASHE MEMORIAL [id number] 18:33:00 Test Item Value Reference Range Interpretation Comments AST (test code = AST) 27 See_Comment [Auto mated message] The system which ge nerated this result transmit neli reference range : <=37. The reference range was not used to interpr et this result as felipe l/abnormal. [facility] HospitalWodwqfkKSPEYGQNRF0901-22-97 18:33:00 Test Item Value Reference Range Interpretation Comments C-REACTIVE PROTEIN (test code = 44.4 C-REACTIVE PROTEIN) [facility] [id number] 18:33:00 Test Item Value Reference Range Interpretation Comments Lactic Acid Lvl (test code = Lactic 1.3 0.5-2.2 Acid Lvl) [facility] [id number] 18:33:00 Test Item Value Reference Range Interpretation Comments eGFR (test code = eGFR) 91 [facility] [id number] 18:33:00 Test Item Value Reference Range Interpretation Comments B/C Ratio (test code = B/C Ratio) 19 6-25 [facility] [id number] 18:33:00 Test Item Value Reference Range Interpretation Comments A/G Ratio (test code = A/G Ratio) 0.6 0.7-1.6 [facility] [id number] 18:33:00 Test Item Value Reference Range Interpretation Comments Globulin (test code = Globulin) 4.7 2.7-4.2 [facility] [id number] 18:33:00 Test Item Value Reference Range Interpretation Comments AGAP (test code = AGAP) 12.0 10.0-20.0 [facility] [id number] 18:33:00 Test Item Value Reference Range Interpretation Comments Bili Total (test code = Bili Total) 0.2 0.2-1.3 [facility] [id number] 18:33:00 Test Item Value Reference Range Interpretation Comments Alk Phos (test code = Alk Phos) 116 39-136 [facility]2017-02-20 18:33:00 Test Item Value Reference Range Interpretation Comments CO2 (test code = CO2) 30 24-32 [facility]2017-02-20 18:33:00 Test Item Value Reference Range Interpretation Comments Chloride Lvl (test code = Chloride Lvl) 99 95-109 [facility]2017-02-20 18:33:00 Test Item Value Reference Range Interpretation Comments BUN (test code = BUN) 14 7-22 [facility]2017-02-20 18:33:00 Test Item Value Reference Range Interpretation Comments Glucose Lvl (test code = Glucose Lvl) 128 70-99 [facility]2017-02-20 18:33:00 Test Item Value Reference Range Interpretation Comments Creatinine Lvl (test code = Creatinine 0.74 0.50-1.40 Lvl) [facility]2017-02-20 18:33:00 Test Item Value Reference Range Interpretation Comments Potassium Lvl (test code = Potassium 5.0 3.5-5.1 Lvl) [facility]2017-02-20 18:33:00 Test Item Value Reference Range Interpretation Comments Sodium Lvl (test code = Sodium Lvl) 136 135-145 [facility]2017-02-20 18:33:00 Test Item Value Reference Range Interpretation Comments Total Protein (test code = Total 7.7 6.4-8.4 Protein) [facility]2017-02-20 18:33:00 Test Item Value Reference Range Interpretation Comments Calcium Lvl (test code = Calcium Lvl) 8.7 8.5-10.5 [facility]2017-02-20 18:33:00 Test Item Value Reference Range Interpretation Comments ALT (test code = ALT) 21 See_Comment [Auto mated message] The system which ge nerated this result transmit neli reference range : <=65. The reference range was not used to interpr et this result as felipe l/abnormal. [facility]2017-02-20 18:33:00 Test Item Value Reference Range Interpretation Comments Albumin Lvl (test code = Albumin Lvl) 3.0 3.5-5.0 [facility]2017-02-20 18:33:00 Test Item Value Reference Range Interpretation Comments AST (test code = AST) 27 See_Comment [Auto mated message] The system which ge nerated this result transmit neli reference range : <=37. The reference range was not used to interpr et this result as felipe l/abnormal. [facility]inteTftlgfmAHYXKITLDB0813-08-53 18:33:00 Test Item Value Reference Range Interpretation Comments C-REACTIVE PROTEIN (test code = 44.4 C-REACTIVE PROTEIN) [facility]2017-02-20 18:33:00 Test Item Value Reference Range Interpretation Comments Lactic Acid Lvl (test code = Lactic 1.3 0.5-2.2 Acid Lvl) [facility]EdsqdfxZIEKILZLEO0595-14-22 14:38:00 Test Item Value Reference Range Interpretation Comments Segs-Bands # (test code = Segs-Bands #) 4.5 1.5-8.1 [facility] CenterJskhrolWDDDYAWZHE1647-96-96 14:38:00 Test Item Value Reference Range Interpretation Comments Basophils (test code = 0.5 See_Comment [Aut omated message] The Basophils) system which ge nerated this result tra nsmitted reference range : <=1.0. The reference r lv was not used to int erpret this result as normal/abnormal . [facility] CenterIikpbsuYNSOLVYNIE8299-51-04 14:38:00 Test Item Value Reference Range Interpretation Comments Monocytes (test code = Monocytes) 5.8 2.0-12.0 [facility] CenterQgirosbWWCPNVFEPM4468-24-41 14:38:00 Test Item Value Reference Range Interpretation Comments Eosinophils (test code = 1.4 See_Comment [A utomated message] The Eosinophils) system which ge nerated this result tra nsmitted reference range : <=4.0. The reference r lv was not used to int erpret this result as normal/abnormal . [facility] CenterYdfccjaUOYKOAESEA0874-93-14 14:38:00 Test Item Value Reference Range Interpretation Comments Eosinophils # (test code 0.1 See_Comment [A utomated message] The = Eosinophils #) system whic h generated this result tra nsmitted reference range : <=0.5. The reference r lv was not used to int erpret this result as normal/abnormal . [facility] PointeYgumzugFIZWVGTFVB8075-69-58 14:38:00 Test Item Value Reference Range Interpretation Comments HIV 1/2 Ab (test code Negative *NA*(08/03/15 = HIV 1/2 Ab) 9:38 AM) [facility] PointeCjgfgojIZEMONMKKM3563-81-77 14:38:00 Test Item Value Reference Range Interpretation Comments Hep C Ab (test code = Negative *NA*(08/03/15 Hep C Ab) 9:38 AM) [facility]2016-06-23 14:38:00 Test Item Value Reference Range Interpretation Comments eGFR (test code = eGFR) 79 [facility]2016-06-23 14:38:00 Test Item Value Reference Range Interpretation Comments Sodium Lvl (test code = Sodium Lvl) 144 135-145 [facility]2016-06-23 14:38:00 Test Item Value Reference Range Interpretation Comments Chloride Lvl (test code = Chloride Lvl) 104 95-109 [facility]2016-06-23 14:38:00 Test Item Value Reference Range Interpretation Comments Potassium Lvl (test code = Potassium 4.6 3.5-5.1 Lvl) [facility]2016-06-23 14:38:00 Test Item Value Reference Range Interpretation Comments Calcium Lvl (test code = Calcium Lvl) 9.4 8.5-10.5 [facility]2016-06-23 14:38:00 Test Item Value Reference Range Interpretation Comments CO2 (test code = CO2) 31 24-32 [facility]2016-06-23 14:38:00 Test Item Value Reference Range Interpretation Comments Glucose Lvl (test code = Glucose Lvl) 126 70-99 [facility]2016-06-23 14:38:00 Test Item Value Reference Range Interpretation Comments Creatinine Lvl (test code = Creatinine 0.84 0.50-1.40 Lvl) [facility]2016-06-23 14:38:00 Test Item Value Reference Range Interpretation Comments BUN (test code = BUN) 17 7-22 [facility]2016-06-23 14:38:00 Test Item Value Reference Range Interpretation Comments AGAP (test code = AGAP) 13.6 10.0-20.0 [id number] 14:38:00 Test Item Value Reference Range Interpretation Comments MCH (test code = MCH) 28.8 pg 27.0-31.0 [facility] CenterBvvrjhcVEHFBYKIXG6392-90-61 14:38:00 Test Item Value Reference Range Interpretation Comments Hgb (test code = Hgb) 12.1 12.0-16.0 [facility] CenterNptffsxGCYVVCYNSE4850-84-62 14:38:00 Test Item Value Reference Range Interpretation Comments RBC (test code = RBC) 4.20 4.20-5.40 [facility] CenterDwtmbnuXCBWEBSGGA7698-74-56 14:38:00 Test Item Value Reference Range Interpretation Comments MCV (test code = MCV) 89.2 80.0-98.0 [facility] CenterKemvpqsQSDPWVEOEX2631-73-61 14:38:00 Test Item Value Reference Range Interpretation Comments Hct (test code = Hct) 37.5 36.0-48.0 [facility] CenterIrzpkhqNBUTSPCRVS1748-45-61 14:38:00 Test Item Value Reference Range Interpretation Comments WBC (test code = WBC) 7.4 3.7-10.4 [facility] CenterFgegvlrPSUBGDEZPJ2625-29-08 14:38:00 Test Item Value Reference Range Interpretation Comments MCHC (test code = MCHC) 32.3 32.0-36.0 [facility] CenterQcfwdslYCKDQMGBBC0081-48-97 14:38:00 Test Item Value Reference Range Interpretation Comments RDW (test code = RDW) 14.3 11.5-14.5 [facility] CenterOzogedaPZTAYJMFXL3519-80-85 14:38:00 Test Item Value Reference Range Interpretation Comments MPV (test code = MPV) 9.3 7.4-10.4 [facility] CenterCyahwhpEWLNOUHVHW4925-60-16 14:38:00 Test Item Value Reference Range Interpretation Comments Platelet (test code = Platelet) 193 133-450 [facility] CenterFbshvthRZCDBLAZUW2946-28-76 14:38:00 Test Item Value Reference Range Interpretation Comments Basophils # (test code 0.0 See_Comment [Aut omated message] The = Basophils #) system which generated this result tra nsmitted reference range : <=0.2. The reference r lv was not used to int erpret this result as normal/abnormal . [facility] CenterPticisyGIHEHOSQQR8922-79-20 14:38:00 Test Item Value Reference Range Interpretation Comments Segs (test code = Segs) 61.4 45.0-75.0 [facility] CenterFsslvmvOJXPUMLTXH6971-43-07 14:38:00 Test Item Value Reference Range Interpretation Comments Lymphocytes (test code = Lymphocytes) 30.9 20.0-40.0 [facility] CenterEkylgnxRMMHWUUOGA9095-43-18 14:38:00 Test Item Value Reference Range Interpretation Comments Lymphocytes # (test code = Lymphocytes 2.3 1.0-5.5 #) [facility] CenterCnrebbzPOAXVGLNGB8212-48-87 14:38:00 Test Item Value Reference Range Interpretation Comments Monocytes # (test code 0.4 See_Comment [Aut omated message] The = Monocytes #) system which generated this result tra nsmitted reference range : <=0.8. The reference r lv was not used to int erpret this result as normal/abnormal . [facility] CenterDssfqsxNOPEVIOCWB9176-15-61 14:38:00 Test Item Value Reference Range Interpretation Comments Segs-Bands # (test code = Segs-Bands #) 4.5 1.5-8.1 [facility] CenterGiqqsfnVSJOWFXNIN1813-13-00 14:38:00 Test Item Value Reference Range Interpretation Comments Basophils (test code = 0.5 See_Comment [Aut omated message] The Basophils) system which ge nerated this result tra nsmitted reference range : <=1.0. The reference r lv was not used to int erpret this result as normal/abnormal . [facility] CenterLxsvyrcOPNWHWTUNJ4491-01-63 14:38:00 Test Item Value Reference Range Interpretation Comments Monocytes (test code = Monocytes) 5.8 2.0-12.0 [facility] CenterAhqryuuZTQEXLGRFZ5292-27-91 14:38:00 Test Item Value Reference Range Interpretation Comments Eosinophils (test code = 1.4 See_Comment [A utomated message] The Eosinophils) system which ge nerated this result tra nsmitted reference range : <=4.0. The reference r lv was not used to int erpret this result as normal/abnormal . [facility] CenterKnkaqbaFTSYPXBABM2197-00-34 14:38:00 Test Item Value Reference Range Interpretation Comments Eosinophils # (test code 0.1 See_Comment [A utomated message] The = Eosinophils #) system whic h generated this result tra nsmitted reference range : <=0.5. The reference r lv was not used to int erpret this result as normal/abnormal . [facility] PointeZvhvahoEBQGPKFYGO4598-77-23 14:38:00 Test Item Value Reference Range Interpretation Comments HIV 1/2 Ab (test code Negative *NA*(08/03/15 = HIV 1/2 Ab) 9:38 AM) [facility] PointeHtxdjeyIRDUWPRHNR9879-13-53 14:38:00 Test Item Value Reference Range Interpretation Comments Hep C Ab (test code = Negative *NA*(08/03/15 Hep C Ab) 9:38 AM) [facility]2016-06-23 14:38:00 Test Item Value Reference Range Interpretation Comments eGFR (test code = eGFR) 79 [facility]2016-06-23 14:38:00 Test Item Value Reference Range Interpretation Comments Sodium Lvl (test code = Sodium Lvl) 144 135-145 [facility]2016-06-23 14:38:00 Test Item Value Reference Range Interpretation Comments Chloride Lvl (test code = Chloride Lvl) 104 95-109 [facility]2016-06-23 14:38:00 Test Item Value Reference Range Interpretation Comments Potassium Lvl (test code = Potassium 4.6 3.5-5.1 Lvl) [facility]2016-06-23 14:38:00 Test Item Value Reference Range Interpretation Comments Calcium Lvl (test code = Calcium Lvl) 9.4 8.5-10.5 [facility]2016-06-23 14:38:00 Test Item Value Reference Range Interpretation Comments CO2 (test code = CO2) 31 24-32 [facility]2016-06-23 14:38:00 Test Item Value Reference Range Interpretation Comments Glucose Lvl (test code = Glucose Lvl) 126 70-99 [facility]2016-06-23 14:38:00 Test Item Value Reference Range Interpretation Comments Creatinine Lvl (test code = Creatinine 0.84 0.50-1.40 Lvl) [facility]2016-06-23 14:38:00 Test Item Value Reference Range Interpretation Comments BUN (test code = BUN) 17 7-22 [facility]2016-06-23 14:38:00 Test Item Value Reference Range Interpretation Comments AGAP (test code = AGAP) 13.6 10.0-20.0 [facility]aultXjlqonjERLTLHJNDT8067-53-71 14:38:00 Test Item Value Reference Range Interpretation Comments MCH (test code = MCH) 28.8 pg 27.0-31.0 [facility] CenterUzbojkxCVDUTGYZAO3384-43-12 14:38:00 Test Item Value Reference Range Interpretation Comments Hgb (test code = Hgb) 12.1 12.0-16.0 [facility] CenterUwouujuZHSITNIVRF6200-41-22 14:38:00 Test Item Value Reference Range Interpretation Comments RBC (test code = RBC) 4.20 4.20-5.40 [facility] CenterRubdqzqNYGEXJZPNN8844-90-47 14:38:00 Test Item Value Reference Range Interpretation Comments MCV (test code = MCV) 89.2 80.0-98.0 [facility] CenterDnqxlqwDHSGFQXWZV1875-18-84 14:38:00 Test Item Value Reference Range Interpretation Comments Hct (test code = Hct) 37.5 36.0-48.0 [facility] CenterJptfyhlAIVZAFBBNQ1190-56-57 14:38:00 Test Item Value Reference Range Interpretation Comments WBC (test code = WBC) 7.4 3.7-10.4 [facility] CenterYvlbtmbPTXYHDABEE2084-47-04 14:38:00 Test Item Value Reference Range Interpretation Comments MCHC (test code = MCHC) 32.3 32.0-36.0 [facility] CenterZrjjstoCMPAMAYXPL4875-23-57 14:38:00 Test Item Value Reference Range Interpretation Comments RDW (test code = RDW) 14.3 11.5-14.5 [facility] [facility]biACXHCFFTOG1161[facility]13-68 14:38:00 Test Item Value Reference Range Interpretation Comments MPV (test code = MPV) 9.3 7.4-10.4 [facility]PfrftfzIIRZIXRMVH9387-86-12 14:38:00 Test Item Value Reference Range Interpretation Comments Platelet (test code = Platelet) 193 133-450 [facility] CenterWemnwytKPQXHNDDTV3191-25-96 14:38:00 Test Item Value Reference Range Interpretation Comments Basophils # (test code 0.0 See_Comment [Aut omated message] The = Basophils #) system which generated this result tra nsmitted reference range : <=0.2. The reference r lv was not used to int erpret this result as normal/abnormal . [facility] CenterXddacohBFMAMKEHES9119-98-64 14:38:00 Test Item Value Reference Range Interpretation Comments Segs (test code = Segs) 61.4 45.0-75.0 [facility] CenterTphnresRPSBYVDKHV3104-68-94 14:38:00 Test Item Value Reference Range Interpretation Comments Lymphocytes (test code = Lymphocytes) 30.9 20.0-40.0 [facility] CenterVdkmkkvJDSWVRASOJ8638-26-09 14:38:00 Test Item Value Reference Range Interpretation Comments Lymphocytes # (test code = Lymphocytes 2.3 1.0-5.5 #) [facility] CenterZbbkfcdCCRVEJKLRS1587-21-56 14:38:00 Test Item Value Reference Range Interpretation Comments Monocytes # (test code 0.4 See_Comment [Aut omated message] The = Monocytes #) system which generated this result tra nsmitted reference range : <=0.8. The reference r lv was not used to int erpret this result as normal/abnormal . [facility] CenterKablllwUSGBIEEQPI9063-24-70 14:38:00 Test Item Value Reference Range Interpretation Comments Segs-Bands # (test code = Segs-Bands #) 4.5 1.5-8.1 [facility] CenterRefdkkbZDZBGGTOIN9979-05-79 14:38:00 Test Item Value Reference Range Interpretation Comments Basophils (test code = 0.5 See_Comment [Aut omated message] The Basophils) system which ge nerated this result tra nsmitted reference range : <=1.0. The reference r lv was not used to int erpret this result as normal/abnormal . [facility] CenterYhibpzdTIHDWCUEOB7585-94-65 14:38:00 Test Item Value Reference Range Interpretation Comments Monocytes (test code = Monocytes) 5.8 2.0-12.0 [facility] CenterQghjdnpUXSVWLNMOQ0692-45-57 14:38:00 Test Item Value Reference Range Interpretation Comments Eosinophils (test code = 1.4 See_Comment [A utomated message] The Eosinophils) system which ge nerated this result tra nsmitted reference range : <=4.0. The reference r lv was not used to int erpret this result as normal/abnormal . [facility] CenterVrgexzuKJWTCEEBNV5961-13-37 14:38:00 Test Item Value Reference Range Interpretation Comments Eosinophils # (test code 0.1 See_Comment [A utomated message] The = Eosinophils #) system whic h generated this result tra nsmitted reference range : <=0.5. The reference r lv was not used to int erpret this result as normal/abnormal . [facility]inteRhtnegcKGBDKBFVDM9178-13-04 14:38:00 Test Item Value Reference Range Interpretation Comments HIV 1/2 Ab (test code Negative *NA*(08/03/15 = HIV 1/2 Ab) 9:38 AM) [facility]inteEpuglthPNWYDZBHPY5592-28-71 14:38:00 Test Item Value Reference Range Interpretation Comments Hep C Ab (test code = Negative *NA*(08/03/15 Hep C Ab) 9:38 AM) [facility]2016-06-23 14:38:00 Test Item Value Reference Range Interpretation Comments eGFR (test code = eGFR) 79 [facility]2016-06-23 14:38:00 Test Item Value Reference Range Interpretation Comments Sodium Lvl (test code = Sodium Lvl) 144 135-145 [facility]2016-06-23 14:38:00 Test Item Value Reference Range Interpretation Comments Chloride Lvl (test code = Chloride Lvl) 104 95-109 [facility]2016-06-23 14:38:00 Test Item Value Reference Range Interpretation Comments Potassium Lvl (test code = Potassium 4.6 3.5-5.1 Lvl) [facility]2016-06-23 14:38:00 Test Item Value Reference Range Interpretation Comments Calcium Lvl (test code = Calcium Lvl) 9.4 8.5-10.5 [facility]2016-06-23 14:38:00 Test Item Value Reference Range Interpretation Comments CO2 (test code = CO2) 31 24-32 [facility]2016-06-23 14:38:00 Test Item Value Reference Range Interpretation Comments Glucose Lvl (test code = Glucose Lvl) 126 70-99 [facility]2016-06-23 14:38:00 Test Item Value Reference Range Interpretation Comments Creatinine Lvl (test code = Creatinine 0.84 0.50-1.40 Lvl) [facility]2016-06-23 14:38:00 Test Item Value Reference Range Interpretation Comments BUN (test code = BUN) 17 7-22 [facility]2016-06-23 14:38:00 Test Item Value Reference Range Interpretation Comments AGAP (test code = AGAP) 13.6 10.0-20.0 [facility] CenterIjyulbzOESFKDEVSM6178-49-58 14:38:00 Test Item Value Reference Range Interpretation Comments MCH (test code = MCH) 28.8 pg 27.0-31.0 [facility] CenterBtuvkpkHLBVXIENAA8755-28-29 14:38:00 Test Item Value Reference Range Interpretation Comments Hgb (test code = Hgb) 12.1 12.0-16.0 [facility] CenterVcuokqwACFVBVLARJ3611-55-52 14:38:00 Test Item Value Reference Range Interpretation Comments RBC (test code = RBC) 4.20 4.20-5.40 [facility] CenterJwwashcGMWLVTDXGA6764-83-87 14:38:00 Test Item Value Reference Range Interpretation Comments MCV (test code = MCV) 89.2 80.0-98.0 [facility] CenterIsmwzpzCBAWHEMRMN5976-65-61 14:38:00 Test Item Value Reference Range Interpretation Comments Hct (test code = Hct) 37.5 36.0-48.0 [facility] CenterBgmhhbdSGTSMKOILI7585-00-02 14:38:00 Test Item Value Reference Range Interpretation Comments WBC (test code = WBC) 7.4 3.7-10.4 [facility] CenterHeknosyBBDAAYWTHC1331-64-11 14:38:00 Test Item Value Reference Range Interpretation Comments MCHC (test code = MCHC) 32.3 32.0-36.0 [facility] CenterJvdapeiMLSIWFUVTV3917-73-67 14:38:00 Test Item Value Reference Range Interpretation Comments RDW (test code = RDW) 14.3 11.5-14.5 [facility] CenterNjtuhpoJVMUYOROSM8943-49-74 14:38:00 Test Item Value Reference Range Interpretation Comments MPV (test code = MPV) 9.3 7.4-10.4 [facility] CenterAabacvzTOVNZDPEOH7303-37-24 14:38:00 Test Item Value Reference Range Interpretation Comments Platelet (test code = Platelet) 193 133-450 [facility] CenterHsyfiosIJKDZZAXPS7085-46-39 14:38:00 Test Item Value Reference Range Interpretation Comments Basophils # (test code 0.0 See_Comment [Aut omated message] The = Basophils #) system which generated this result tra nsmitted reference range : <=0.2. The reference r lv was not used to int erpret this result as normal/abnormal . [facility] CenterAhbtxsdGDAFFVDUGP6285-81-42 14:38:00 Test Item Value Reference Range Interpretation Comments Segs (test code = Segs) 61.4 45.0-75.0 [facility] CenterQkvmyysHUGXEDYMJQ0824-74-93 14:38:00 Test Item Value Reference Range Interpretation Comments Lymphocytes (test code = Lymphocytes) 30.9 20.0-40.0 [facility] CenterIacnaotYPMMYDTHEX3760-02-92 14:38:00 Test Item Value Reference Range Interpretation Comments Lymphocytes # (test code = Lymphocytes 2.3 1.0-5.5 #) [facility] CenterAsjhacqCXNYFZHLYZ1841-34-45 14:38:00 Test Item Value Reference Range Interpretation Comments Monocytes # (test code 0.4 See_Comment [Aut omated message] The = Monocytes #) system which generated this result tra nsmitted reference range : <=0.8. The reference r lv was not used to int erpret this result as normal/abnormal . [facility] CenterFpxislnGNZUTFNROK0709-65-86 14:38:00 Test Item Value Reference Range Interpretation Comments Segs-Bands # (test code = Segs-Bands #) 4.5 1.5-8.1 [facility] CenterVffsmzpSBGEYQOLYT7484-07-64 14:38:00 Test Item Value Reference Range Interpretation Comments Basophils (test code = 0.5 See_Comment [Aut omated message] The Basophils) system which ge nerated this result tra nsmitted reference range : <=1.0. The reference r lv was not used to int erpret this result as normal/abnormal . [facility] CenterMyjduvoFEUOVRAESS5676-34-52 14:38:00 Test Item Value Reference Range Interpretation Comments Monocytes (test code = Monocytes) 5.8 2.0-12.0 [facility] CenterRrfnrqvOMBTAIYZRR8517-57-01 14:38:00 Test Item Value Reference Range Interpretation Comments Eosinophils (test code = 1.4 See_Comment [A utomated message] The Eosinophils) system which ge nerated this result tra nsmitted reference range : <=4.0. The reference r lv was not used to int erpret this result as normal/abnormal . [facility] CenterQdpbgjvNUJHMKEWYK4748-82-56 14:38:00 Test Item Value Reference Range Interpretation Comments Eosinophils # (test code 0.1 See_Comment [A utomated message] The = Eosinophils #) system whic h generated this result tra nsmitted reference range : <=0.5. The reference r lv was not used to int erpret this result as normal/abnormal . [facility]inteLbvivkwQTZEAIXNFQ0548-62-84 14:38:00 Test Item Value Reference Range Interpretation Comments HIV 1/2 Ab (test code Negative *NA*(08/03/15 = HIV 1/2 Ab) 9:38 AM) [facility]inteHszjbebYZUZBSUWIP6873-94-15 14:38:00 Test Item Value Reference Range Interpretation Comments Hep C Ab (test code = Negative *NA*(08/03/15 Hep C Ab) 9:38 AM) [facility]2016-06-23 14:38:00 Test Item Value Reference Range Interpretation Comments eGFR (test code = eGFR) 79 [facility]2016-06-23 14:38:00 Test Item Value Reference Range Interpretation Comments Sodium Lvl (test code = Sodium Lvl) 144 135-145 [facility]2016-06-23 14:38:00 Test Item Value Reference Range Interpretation Comments Chloride Lvl (test code = Chloride Lvl) 104 95-109 [facility]2016-06-23 14:38:00 Test Item Value Reference Range Interpretation Comments Potassium Lvl (test code = Potassium 4.6 3.5-5.1 Lvl) [facility]2016-06-23 14:38:00 Test Item Value Reference Range Interpretation Comments Calcium Lvl (test code = Calcium Lvl) 9.4 8.5-10.5 [facility]2016-06-23 14:38:00 Test Item Value Reference Range Interpretation Comments CO2 (test code = CO2) 31 24-32 [facility]2016-06-23 14:38:00 Test Item Value Reference Range Interpretation Comments Glucose Lvl (test code = Glucose Lvl) 126 70-99 [facility]2016-06-23 14:38:00 Test Item Value Reference Range Interpretation Comments Creatinine Lvl (test code = Creatinine 0.84 0.50-1.40 Lvl) [facility]2016-06-23 14:38:00 Test Item Value Reference Range Interpretation Comments BUN (test code = BUN) 17 7-22 [facility]2016-06-23 14:38:00 Test Item Value Reference Range Interpretation Comments AGAP (test code = AGAP) 13.6 10.0-20.0 [facility] CenterNnmnhxsIABXGIRJBL3990-32-75 14:38:00 Test Item Value Reference Range Interpretation Comments MCH (test code = MCH) 28.8 pg 27.0-31.0 [facility] CenterUcsqjjdODBJNONFLF0637-90-39 14:38:00 Test Item Value Reference Range Interpretation Comments Hgb (test code = Hgb) 12.1 12.0-16.0 [facility] CenterMrntauqPDIIVKSMDO3443-75-53 14:38:00 Test Item Value Reference Range Interpretation Comments RBC (test code = RBC) 4.20 4.20-5.40 [facility] CenterZhbummtHNDOROECHH9511-72-11 14:38:00 Test Item Value Reference Range Interpretation Comments MCV (test code = MCV) 89.2 80.0-98.0 [facility] CenterEiedmjfDGBDEVTWTU3671-14-04 14:38:00 Test Item Value Reference Range Interpretation Comments Hct (test code = Hct) 37.5 36.0-48.0 [facility] CenterJufsnfrQCJJYTQRAH7771-69-04 14:38:00 Test Item Value Reference Range Interpretation Comments WBC (test code = WBC) 7.4 3.7-10.4 [facility] CenterWfizsgxUBOHOMRXQE0701-07-12 14:38:00 Test Item Value Reference Range Interpretation Comments MCHC (test code = MCHC) 32.3 32.0-36.0 [facility] CenterLwypxtgMGPTVRLKOR0549-84-72 14:38:00 Test Item Value Reference Range Interpretation Comments RDW (test code = RDW) 14.3 11.5-14.5 [facility] CenterEzszkprWQWGKXJVZZ2753-01-19 14:38:00 Test Item Value Reference Range Interpretation Comments MPV (test code = MPV) 9.3 7.4-10.4 [facility] CenterNsmapvvYRZNIOQPBP9925-47-28 14:38:00 Test Item Value Reference Range Interpretation Comments Platelet (test code = Platelet) 193 133-450 [facility] CenterSyrmkhhMHWCFDXYPP7923-08-81 14:38:00 Test Item Value Reference Range Interpretation Comments Basophils # (test code 0.0 See_Comment [Aut omated message] The = Basophils #) system which generated this result tra nsmitted reference range : <=0.2. The reference r lv was not used to int erpret this result as normal/abnormal . [facility] CenterDtqivubKBPZDHGXKE6065-84-31 14:38:00 Test Item Value Reference Range Interpretation Comments Segs (test code = Segs) 61.4 45.0-75.0 [facility] CenterPxwrlrrNMRHWMQXHU6559-91-85 14:38:00 Test Item Value Reference Range Interpretation Comments Lymphocytes (test code = Lymphocytes) 30.9 20.0-40.0 [facility] CenterGobfquxDOEKMZOECS6102-24-89 14:38:00 Test Item Value Reference Range Interpretation Comments Lymphocytes # (test code = Lymphocytes 2.3 1.0-5.5 #) [facility] CenterXzsaqgcJVEJUYJOAN1249-79-20 14:38:00 Test Item Value Reference Range Interpretation Comments Monocytes # (test code 0.4 See_Comment [Aut omated message] The = Monocytes #) system which generated this result tra nsmitted reference range : <=0.8. The reference r lv was not used to int erpret this result as normal/abnormal . [facility] CenterHbpkjqsKRNDTDIVVQ0520-15-64 14:38:00 Test Item Value Reference Range Interpretation Comments Segs-Bands # (test code = Segs-Bands #) 4.5 1.5-8.1 [facility] CenterSxrhevrLWVRFCARAT9730-42-43 14:38:00 Test Item Value Reference Range Interpretation Comments Basophils (test code = 0.5 See_Comment [Aut omated message] The Basophils) system which ge nerated this result tra nsmitted reference range : <=1.0. The reference r lv was not used to int erpret this result as normal/abnormal . [facility] CenterXmgxcfnFHEWVPHVRN3438-27-59 14:38:00 Test Item Value Reference Range Interpretation Comments Monocytes (test code = Monocytes) 5.8 2.0-12.0 [facility] CenterUslooihGZHCWZFPCE9773-65-53 14:38:00 Test Item Value Reference Range Interpretation Comments Eosinophils (test code = 1.4 See_Comment [A utomated message] The Eosinophils) system which ge nerated this result tra nsmitted reference range : <=4.0. The reference r lv was not used to int erpret this result as normal/abnormal . [facility] CenterDvbtgvnDBCLSWNNGN8748-26-44 14:38:00 Test Item Value Reference Range Interpretation Comments Eosinophils # (test code 0.1 See_Comment [A utomated message] The = Eosinophils #) system whic h generated this result tra nsmitted reference range : <=0.5. The reference r lv was not used to int erpret this result as normal/abnormal . [facility]inteHpxcsarSLHVHMLTFQ4149-93-84 14:38:00 Test Item Value Reference Range Interpretation Comments HIV 1/2 Ab (test code Negative *NA*(08/03/15 = HIV 1/2 Ab) 9:38 AM) [facility]inteZlntfoxFUIEPOAMKB2908-99-20 14:38:00 Test Item Value Reference Range Interpretation Comments Hep C Ab (test code = Negative *NA*(08/03/15 Hep C Ab) 9:38 AM) [facility]2016-06-23 14:38:00 Test Item Value Reference Range Interpretation Comments eGFR (test code = eGFR) 79 [facility]2016-06-23 14:38:00 Test Item Value Reference Range Interpretation Comments Sodium Lvl (test code = Sodium Lvl) 144 135-145 [facility]2016-06-23 14:38:00 Test Item Value Reference Range Interpretation Comments Chloride Lvl (test code = Chloride Lvl) 104 95-109 [facility]2016-06-23 14:38:00 Test Item Value Reference Range Interpretation Comments Potassium Lvl (test code = Potassium 4.6 3.5-5.1 Lvl) [facility]2016-06-23 14:38:00 Test Item Value Reference Range Interpretation Comments Calcium Lvl (test code = Calcium Lvl) 9.4 8.5-10.5 [facility]2016-06-23 14:38:00 Test Item Value Reference Range Interpretation Comments CO2 (test code = CO2) 31 24-32 [facility]2016-06-23 14:38:00 Test Item Value Reference Range Interpretation Comments Glucose Lvl (test code = Glucose Lvl) 126 70-99 [facility]2016-06-23 14:38:00 Test Item Value Reference Range Interpretation Comments Creatinine Lvl (test code = Creatinine 0.84 0.50-1.40 Lvl) [facility]2016-06-23 14:38:00 Test Item Value Reference Range Interpretation Comments BUN (test code = BUN) 17 7-22 [facility]2016-06-23 14:38:00 Test Item Value Reference Range Interpretation Comments AGAP (test code = AGAP) 13.6 10.0-20.0 [facility] CenterOfupwivRCDAHTXYKN9806-14-36 14:38:00 Test Item Value Reference Range Interpretation Comments MCH (test code = MCH) 28.8 pg 27.0-31.0 [facility] CenterBzryplyLRHXNWNNWJ6905-63-91 14:38:00 Test Item Value Reference Range Interpretation Comments Hgb (test code = Hgb) 12.1 12.0-16.0 [facility] CenterZtbzfinMHHTZMOLQI4071-79-63 14:38:00 Test Item Value Reference Range Interpretation Comments RBC (test code = RBC) 4.20 4.20-5.40 [facility] CenterXjuuwrsPHYBEUIJUK3802-83-49 14:38:00 Test Item Value Reference Range Interpretation Comments MCV (test code = MCV) 89.2 80.0-98.0 [facility] CenterTcieigxHWYAQEAHDA8302-53-88 14:38:00 Test Item Value Reference Range Interpretation Comments Hct (test code = Hct) 37.5 36.0-48.0 [facility] CenterZgkqlqdQSDQTDEMZA5499-11-50 14:38:00 Test Item Value Reference Range Interpretation Comments WBC (test code = WBC) 7.4 3.7-10.4 [facility] CenterNsoazflAFTXXYYKYM5133-10-44 14:38:00 Test Item Value Reference Range Interpretation Comments MCHC (test code = MCHC) 32.3 32.0-36.0 [facility] CenterInebyrlIGAAVHVVFG6403-62-74 14:38:00 Test Item Value Reference Range Interpretation Comments RDW (test code = RDW) 14.3 11.5-14.5 [facility] CenterVhiwphvCWTWJUBIHT8403-67-53 14:38:00 Test Item Value Reference Range Interpretation Comments MPV (test code = MPV) 9.3 7.4-10.4 [facility] CenterBluxcwuSOESTEGXND7634-07-95 14:38:00 Test Item Value Reference Range Interpretation Comments Platelet (test code = Platelet) 193 133-450 [facility] CenterHmfadvoKIWHGTUAYS3940-96-32 14:38:00 Test Item Value Reference Range Interpretation Comments Basophils # (test code 0.0 See_Comment [Aut omated message] The = Basophils #) system which generated this result tra nsmitted reference range : <=0.2. The reference r lv was not used to int erpret this result as normal/abnormal . [facility] CenterJdwrpwlGNCDGEZUHJ8152-78-69 14:38:00 Test Item Value Reference Range Interpretation Comments Segs (test code = Segs) 61.4 45.0-75.0 [facility] CenterJcdmtlaUBLUPQZEBT6112-58-57 14:38:00 Test Item Value Reference Range Interpretation Comments Lymphocytes (test code = Lymphocytes) 30.9 20.0-40.0 [facility] CenterJpqmzvhWAKNPOMCIK7925-59-90 14:38:00 Test Item Value Reference Range Interpretation Comments Lymphocytes # (test code = Lymphocytes 2.3 1.0-5.5 #) [facility] CenterQtlsakhBTECMOMKCE4250-99-57 14:38:00 Test Item Value Reference Range Interpretation Comments Monocytes # (test code 0.4 See_Comment [Aut omated message] The = Monocytes #) system which generated this result tra nsmitted reference range : <=0.8. The reference r lv was not used to int erpret this result as normal/abnormal . [facility] CenterXpknpjbICOTTGWDWK7034-26-46 14:38:00 Test Item Value Reference Range Interpretation Comments Segs-Bands # (test code = Segs-Bands #) 4.5 1.5-8.1 [facility] CenterWmwqfbsMKIUHZMBFJ9403-77-16 14:38:00 Test Item Value Reference Range Interpretation Comments Basophils (test code = 0.5 See_Comment [Aut omated message] The Basophils) system which ge nerated this result tra nsmitted reference range : <=1.0. The reference r lv was not used to int erpret this result as normal/abnormal . [facility] CenterNdxjxajMKOIMINURN1064-93-06 14:38:00 Test Item Value Reference Range Interpretation Comments Monocytes (test code = Monocytes) 5.8 2.0-12.0 [facility] CenterTvwtgpwYIWQPRNXTW7988-57-77 14:38:00 Test Item Value Reference Range Interpretation Comments Eosinophils (test code = 1.4 See_Comment [A utomated message] The Eosinophils) system which ge nerated this result tra nsmitted reference range : <=4.0. The reference r lv was not used to int erpret this result as normal/abnormal . [facility] CenterIaoghhmQSIJFPUTEL0778-11-36 14:38:00 Test Item Value Reference Range Interpretation Comments Eosinophils # (test code 0.1 See_Comment [A utomated message] The = Eosinophils #) system [employer] h generated this result tra nsmitted reference range : <=0.5. The reference r lv was not used to int erpret this result as normal/abnormal . [facility]intePcaxlgtBSBTDENFIB4954-64-66 14:38:00 Test Item Value Reference Range Interpretation Comments HIV 1/2 Ab (test code Negative *NA*(08/03/15 = HIV 1/2 Ab) 9:38 AM) [facility]inteQqkcnjxIRXSVYKDEO1735-78-79 14:38:00 Test Item Value Reference Range Interpretation Comments Hep C Ab (test code = Negative *NA*(08/03/15 Hep C Ab) 9:38 AM) [facility]2016-06-23 14:38:00 Test Item Value Reference Range Interpretation Comments eGFR (test code = eGFR) 79 [facility]2016-06-23 14:38:00 Test Item Value Reference Range Interpretation Comments Sodium Lvl (test code = Sodium Lvl) 144 135-145 [facility]2016-06-23 14:38:00 Test Item Value Reference Range Interpretation Comments Chloride Lvl (test code = Chloride Lvl) 104 95-109 [facility]2016-06-23 14:38:00 Test Item Value Reference Range Interpretation Comments Potassium Lvl (test code = Potassium 4.6 3.5-5.1 Lvl) [facility]2016-06-23 14:38:00 Test Item Value Reference Range Interpretation Comments Calcium Lvl (test code = Calcium Lvl) 9.4 8.5-10.5 [facility]2016-06-23 14:38:00 Test Item Value Reference Range Interpretation Comments CO2 (test code = CO2) 31 24-32 [facility]2016-06-23 14:38:00 Test Item Value Reference Range Interpretation Comments Glucose Lvl (test code = Glucose Lvl) 126 70-99 [facility]2016-06-23 14:38:00 Test Item Value Reference Range Interpretation Comments Creatinine Lvl (test code = Creatinine 0.84 0.50-1.40 Lvl) [facility]2016-06-23 14:38:00 Test Item Value Reference Range Interpretation Comments BUN (test code = BUN) 17 7-22 [facility]2016-06-23 14:38:00 Test Item Value Reference Range Interpretation Comments AGAP (test code = AGAP) 13.6 10.0-20.0 [facility] CenterWcmznhuADYZHNXLYU5738-26-43 14:38:00 Test Item Value Reference Range Interpretation Comments MCH (test code = MCH) 28.8 pg 27.0-31.0 [facility] CenterSccaoazJEGPPBVTNT6775-22-46 14:38:00 Test Item Value Reference Range Interpretation Comments Hgb (test code = Hgb) 12.1 12.0-16.0 [facility] CenterUsnanbyTBVEYJKBIS8711-54-76 14:38:00 Test Item Value Reference Range Interpretation Comments RBC (test code = RBC) 4.20 4.20-5.40 [facility] CenterQkmllivSSZXBBRXKN5602-11-51 14:38:00 Test Item Value Reference Range Interpretation Comments MCV (test code = MCV) 89.2 80.0-98.0 [facility] CenterOgjbwymDGZCLNODIG4285-02-37 14:38:00 Test Item Value Reference Range Interpretation Comments Hct (test code = Hct) 37.5 36.0-48.0 [facility] CenterLrfuhnzWZOJXLXLHL1127-32-92 14:38:00 Test Item Value Reference Range Interpretation Comments WBC (test code = WBC) 7.4 3.7-10.4 [facility] CenterRhqxoeuSYTUUAGIZK6333-57-90 14:38:00 Test Item Value Reference Range Interpretation Comments MCHC (test code = MCHC) 32.3 32.0-36.0 [facility] CenterHnugricZKNJSFABPL1096-48-06 14:38:00 Test Item Value Reference Range Interpretation Comments RDW (test code = RDW) 14.3 11.5-14.5 [facility] CenterRrrrmctPMLLLEVVPP8127-68-77 14:38:00 Test Item Value Reference Range Interpretation Comments MPV (test code = MPV) 9.3 7.4-10.4 [facility] CenterMduuelvOIZPHLAZBV9194-02-63 14:38:00 Test Item Value Reference Range Interpretation Comments Platelet (test code = Platelet) 193 133-450 [facility] CenterXraiqfiLYNQHYZBSR7512-44-00 14:38:00 Test Item Value Reference Range Interpretation Comments Basophils # (test code 0.0 See_Comment [Aut omated message] The = Basophils #) system which generated this result tra nsmitted reference range : <=0.2. The reference r lv was not used to int erpret this result as normal/abnormal . [facility] CenterHjgvivuIRFRLDUOBZ8594-19-21 14:38:00 Test Item Value Reference Range Interpretation Comments Segs (test code = Segs) 61.4 45.0-75.0 [facility] CenterVlnwhpvTRMEQTBRWQ4088-14-98 14:38:00 Test Item Value Reference Range Interpretation Comments Lymphocytes (test code = Lymphocytes) 30.9 20.0-40.0 [facility] CenterAxpixclYZFKSFREBC6549-75-58 14:38:00 Test Item Value Reference Range Interpretation Comments Lymphocytes # (test code = Lymphocytes 2.3 1.0-5.5 #) [facility] CenterBeibxwuTJRPUETWZB7268-37-53 14:38:00 Test Item Value Reference Range Interpretation Comments Monocytes # (test code 0.4 See_Comment [Aut omated message] The = Monocytes #) system which generated this result tra nsmitted reference range : <=0.8. The reference r lv was not used to int erpret this result as normal/abnormal . [facility] CenterXepjjbnKBXNFFNMQZ5541-23-76 14:38:00 Test Item Value Reference Range Interpretation Comments Segs-Bands # (test code = Segs-Bands #) 4.5 1.5-8.1 [facility] CenterJnfceooDGCOJODDRO5158-60-57 14:38:00 Test Item Value Reference Range Interpretation Comments Basophils (test code = 0.5 See_Comment [Aut omated message] The Basophils) system which ge nerated this result tra nsmitted reference range : <=1.0. The reference r lv was not used to int erpret this result as normal/abnormal . [facility] CenterGupjehjHZNYZUXXTQ9166-02-24 14:38:00 Test Item Value Reference Range Interpretation Comments Monocytes (test code = Monocytes) 5.8 2.0-12.0 [facility] CenterRlfmndqQDXGBCILBI5483-36-74 14:38:00 Test Item Value Reference Range Interpretation Comments Eosinophils (test code = 1.4 See_Comment [A utomated message] The Eosinophils) system which ge nerated this result tra nsmitted reference range : <=4.0. The reference r lv was not used to int erpret this result as normal/abnormal . [facility] CenterSaybzboNWQFAMAYLQ2836-10-34 14:38:00 Test Item Value Reference Range Interpretation Comments Eosinophils # (test code 0.1 See_Comment [A utomated message] The = Eosinophils #) system whic h generated this result tra nsmitted reference range : <=0.5. The reference r lv was not used to int erpret this result as normal/abnormal . [facility]PtdjcweQWCNYGIXKX0511-38-20 14:38:00 Test Item Value Reference Range Interpretation Comments HIV 1/2 Ab (test code Negative *NA*(08/03/15 = HIV 1/2 Ab) 9:38 AM) [facility]inteVyidendRJWOOJOMDV2478-74-17 14:38:00 Test Item Value Reference Range Interpretation Comments Hep C Ab (test code = Negative *NA*(08/03/15 Hep C Ab) 9:38 AM) [facility]2016-06-23 14:38:00 Test Item Value Reference Range Interpretation Comments eGFR (test code = eGFR) 79 [facility]2016-06-23 14:38:00 Test Item Value Reference Range Interpretation Comments Sodium Lvl (test code = Sodium Lvl) 144 135-145 [facility]2016-06-23 14:38:00 Test Item Value Reference Range Interpretation Comments Chloride Lvl (test code = Chloride Lvl) 104 95-109 [facility]2016-06-23 14:38:00 Test Item Value Reference Range Interpretation Comments Potassium Lvl (test code = Potassium 4.6 3.5-5.1 Lvl) [facility]2016-06-23 14:38:00 Test Item Value Reference Range Interpretation Comments Calcium Lvl (test code = Calcium Lvl) 9.4 8.5-10.5 [facility]2016-06-23 14:38:00 Test Item Value Reference Range Interpretation Comments CO2 (test code = CO2) 31 24-32 [facility]2016-06-23 14:38:00 Test Item Value Reference Range Interpretation Comments Glucose Lvl (test code = Glucose Lvl) 126 70-99 [facility]2016-06-23 14:38:00 Test Item Value Reference Range Interpretation Comments Creatinine Lvl (test code = Creatinine 0.84 0.50-1.40 Lvl) [facility]2016-06-23 14:38:00 Test Item Value Reference Range Interpretation Comments BUN (test code = BUN) 17 7-22 [facility]2016-06-23 14:38:00 Test Item Value Reference Range Interpretation Comments AGAP (test code = AGAP) 13.6 10.0-20.0 [facility] CenterPdvpyrtZFXASQKNFU1290-08-08 14:38:00 Test Item Value Reference Range Interpretation Comments MCH (test code = MCH) 28.8 pg 27.0-31.0 [facility] CenterAvtqotfCLHNRLVYAE1618-08-37 14:38:00 Test Item Value Reference Range Interpretation Comments Hgb (test code = Hgb) 12.1 12.0-16.0 [facility] CenterCfftnweBOGHSKWXPI7784-32-52 14:38:00 Test Item Value Reference Range Interpretation Comments RBC (test code = RBC) 4.20 4.20-5.40 [facility] CenterNotvakcXEKYQTEWIH9416-69-00 14:38:00 Test Item Value Reference Range Interpretation Comments MCV (test code = MCV) 89.2 80.0-98.0 [facility] CenterJeyfguuFSQGULFQHK6401-92-05 14:38:00 Test Item Value Reference Range Interpretation Comments Hct (test code = Hct) 37.5 36.0-48.0 [facility] CenterRbeojntZUJMUGVNLV7048-78-94 14:38:00 Test Item Value Reference Range Interpretation Comments WBC (test code = WBC) 7.4 3.7-10.4 [facility] CenterMgjgfdsYWLJRXZPFG1560-27-06 14:38:00 Test Item Value Reference Range Interpretation Comments MCHC (test code = MCHC) 32.3 32.0-36.0 [facility] CenterVsaaobhOUOZTFSSEM6158-09-61 14:38:00 Test Item Value Reference Range Interpretation Comments RDW (test code = RDW) 14.3 11.5-14.5 [facility] CenterGzgadkxJFECOXBBGR2338-17-63 14:38:00 Test Item Value Reference Range Interpretation Comments MPV (test code = MPV) 9.3 7.4-10.4 [facility] CenterKjmraaaUMIQWPDCXZ0834-53-91 14:38:00 Test Item Value Reference Range Interpretation Comments Platelet (test code = Platelet) 193 133-450 [facility] CenterPuublltRZYNYLSYTA9528-11-26 14:38:00 Test Item Value Reference Range Interpretation Comments Basophils # (test code 0.0 See_Comment [Aut omated message] The = Basophils #) system which generated this result tra nsmitted reference range : <=0.2. The reference r lv was not used to int erpret this result as normal/abnormal . [facility] CenterKpdzqzvXYUFKFXJOX9033-53-52 14:38:00 Test Item Value Reference Range Interpretation Comments Segs (test code = Segs) 61.4 45.0-75.0 [facility] CenterEuvoivjFDIJMBYRLW8594-56-29 14:38:00 Test Item Value Reference Range Interpretation Comments Lymphocytes (test code = Lymphocytes) 30.9 20.0-40.0 [facility] CenterBscnrlmPWDILKIUXB6663-59-86 14:38:00 Test Item Value Reference Range Interpretation Comments Lymphocytes # (test code = Lymphocytes 2.3 1.0-5.5 #) [facility] CenterOacejstBEXINLIKSY3201-81-20 14:38:00 Test Item Value Reference Range Interpretation Comments Monocytes # (test code 0.4 See_Comment [Aut omated message] The = Monocytes #) system which generated this result tra nsmitted reference range : <=0.8. The reference r lv was not used to int erpret this result as normal/abnormal . [facility] CenterJpxkyzoQIOOZKRZIO6537-67-01 14:38:00 Test Item Value Reference Range Interpretation Comments Segs-Bands # (test code = Segs-Bands #) 4.5 1.5-8.1 [facility] CenterZukfxjeNEIOAGSABT8081-97-05 14:38:00 Test Item Value Reference Range Interpretation Comments Basophils (test code = 0.5 See_Comment [Aut omated message] The Basophils) system which ge nerated this result tra nsmitted reference range : <=1.0. The reference r lv was not used to int erpret this result as normal/abnormal . [facility] CenterPswbgveTUMMVCINWE5469-74-69 14:38:00 Test Item Value Reference Range Interpretation Comments Monocytes (test code = Monocytes) 5.8 2.0-12.0 [facility] CenterXqmtcszOJUNHYVMGG1969-71-84 14:38:00 Test Item Value Reference Range Interpretation Comments Eosinophils (test code = 1.4 See_Comment [A utomated message] The Eosinophils) system which ge nerated this result tra nsmitted reference range : <=4.0. The reference r lv was not used to int erpret this result as normal/abnormal . [place] [address]1966-06-23 14:38:00 Test Item Value Reference Range Interpretation Comments Eosinophils # (test code 0.1 See_Comment [A utomated message] The = Eosinophils #) system whic h generated this result tra nsmitted reference range : <=0.5. The reference r lv was not used to int erpret this result as normal/abnormal . [facility]WfqzdglAYHRCTHWUL7078-17-[facility] 14:38:00 Test Item Value Reference Range Interpretation Comments HIV 1/2 Ab (test code Negative *NA*(08/03/15 = HIV 1/2 Ab) 9:38 AM) [facility]AqybtueDJKWXUWHXJ4632-17-74 14:38:00 Test Item Value Reference Range Interpretation Comments Hep C Ab (test code = Negative *NA*(08/03/15 Hep C Ab) 9:38 AM) [facility]2016-06-23 14:38:00 Test Item Value Reference Range Interpretation Comments eGFR (test code = eGFR) 79 [facility]2016-06-23 14:38:00 Test Item Value Reference Range Interpretation Comments Sodium Lvl (test code = Sodium Lvl) 144 135-145 [facility]2016-06-23 14:38:00 Test Item Value Reference Range Interpretation Comments Chloride Lvl (test code = Chloride Lvl) 104 95-109 [facility]2016-06-23 14:38:00 Test Item Value Reference Range Interpretation Comments Potassium Lvl (test code = Potassium 4.6 3.5-5.1 Lvl) [facility]2016-06-23 14:38:00 Test Item Value Reference Range Interpretation Comments Calcium Lvl (test code = Calcium Lvl) 9.4 8.5-10.5 [facility]2016-06-23 14:38:00 Test Item Value Reference Range Interpretation Comments CO2 (test code = CO2) 31 24-32 [facility]2016-06-23 14:38:00 Test Item Value Reference Range Interpretation Comments Glucose Lvl (test code = Glucose Lvl) 126 70-99 [facility]2016-06-23 14:38:00 Test Item Value Reference Range Interpretation Comments Creatinine Lvl (test code = Creatinine 0.84 0.50-1.40 Lvl) [facility]2016-06-23 14:38:00 Test Item Value Reference Range Interpretation Comments BUN (test code = BUN) 17 7-22 [facility]2016-06-23 14:38:00 Test Item Value Reference Range Interpretation Comments AGAP (test code = AGAP) 13.6 10.0-20.0 [facility] CenterQeeunqwGHIXSZHIYA5426-49-25 14:38:00 Test Item Value Reference Range Interpretation Comments MCH (test code = MCH) 28.8 pg 27.0-31.0 [facility] CenterAdulzgjIZPTSTCNPZ9108-56-23 14:38:00 Test Item Value Reference Range Interpretation Comments Hgb (test code = Hgb) 12.1 12.0-16.0 [facility] CenterVnympcmKDHPLCPIGT3267-32-55 14:38:00 Test Item Value Reference Range Interpretation Comments RBC (test code = RBC) 4.20 4.20-5.40 [facility] CenterNnwdcdwBFCNDEXRKH0668-46-06 14:38:00 Test Item Value Reference Range Interpretation Comments MCV (test code = MCV) 89.2 80.0-98.0 [facility] CenterMlkozicBAVTWVERZR9261-31-74 14:38:00 Test Item Value Reference Range Interpretation Comments Hct (test code = Hct) 37.5 36.0-48.0 [facility] CenterEoiyrdvCERHLIXADY2642-23-49 14:38:00 Test Item Value Reference Range Interpretation Comments WBC (test code = WBC) 7.4 3.7-10.4 [facility] CenterRxwtzwhPNHRCYQOYL9260-02-76 14:38:00 Test Item Value Reference Range Interpretation Comments MCHC (test code = MCHC) 32.3 32.0-36.0 [facility] CenterQkxvtykNHOPFCEFCZ0717-07-76 14:38:00 Test Item Value Reference Range Interpretation Comments RDW (test code = RDW) 14.3 11.5-14.5 [facility] CenterBvmnomwQUOYOAOJUO0882-38-23 14:38:00 Test Item Value Reference Range Interpretation Comments MPV (test code = MPV) 9.3 7.4-10.4 [facility] CenterQtrxaiiPQRKSTIXDA3206-37-52 14:38:00 Test Item Value Reference Range Interpretation Comments Platelet (test code = Platelet) 193 133-450 [facility] CenterZxeoidvBKSEZSKASH8079-66-70 14:38:00 Test Item Value Reference Range Interpretation Comments Basophils # (test code 0.0 See_Comment [Aut omated message] The = Basophils #) system which generated this result tra nsmitted reference range : <=0.2. The reference r lv was not used to int erpret this result as normal/abnormal . [facility] CenterHmlzjtgUJODIJDOOO7435-53-68 14:38:00 Test Item Value Reference Range Interpretation Comments Segs (test code = Segs) 61.4 45.0-75.0 [facility] CenterNlxzrpzXUZICDJJDA9816-40-93 14:38:00 Test Item Value Reference Range Interpretation Comments Lymphocytes (test code = Lymphocytes) 30.9 20.0-40.0 [facility] CenterOenwevlSNTALVCHFO7729-43-89 14:38:00 Test Item Value Reference Range Interpretation Comments Lymphocytes # (test code = Lymphocytes 2.3 1.0-5.5 #) [facility] CenterKoipazyMVDCNBVLIO4997-97-34 14:38:00 Test Item Value Reference Range Interpretation Comments Monocytes # (test code 0.4 See_Comment [Aut omated message] The = Monocytes #) system which generated this result tra nsmitted reference range : <=0.8. The reference r lv was not used to int erpret this result as normal/abnormal . [facility] CenterByzpvfnYJNLNHYLGV4105-00-47 14:38:00 Test Item Value Reference Range Interpretation Comments Segs-Bands # (test code = Segs-Bands #) 4.5 1.5-8.1 [place] [address]1966-06-23 14:38:00 Test Item Value Reference Range Interpretation Comments Basophils (test code = 0.5 See_Comment [Aut omated message] The Basophils) system which ge nerated this result tra nsmitted reference range : <=1.0. The reference r lv was not used to int erpret this result as normal/abnormal . [facility] CenterOqxfjduNTRRZFXCMG2770-57-97 14:38:00 Test Item Value Reference Range Interpretation Comments Monocytes (test code = Monocytes) 5.8 2.0-12.0 [facility] CenterTjbndjbFCDPOSBOCW5004-29-14 14:38:00 Test Item Value Reference Range Interpretation Comments Eosinophils (test code = 1.4 See_Comment [A utomated message] The Eosinophils) system which ge nerated this result tra nsmitted reference range : <=4.0. The reference r lv was not used to int erpret this result as normal/abnormal . [facility]OxwtkooKMYCNIJWGZ7361-92-47 14:38:00 Test Item Value Reference Range Interpretation Comments Eosinophils # (test code 0.1 See_Comment [A utomated message] The = Eosinophils #) system whic h generated this result tra nsmitted reference range : <=0.5. The reference r lv was not used to int erpret this result as normal/abnormal . [facility] HospitalBelmjkiKMRUEYXPAJ5563-69-06 14:38:00 Test Item Value Reference Range Interpretation Comments HIV 1/2 Ab (test code Negative *NA*(08/03/15 = HIV 1/2 Ab) 9:38 AM) [facility] HospitalKqoynkrRHZTPNNJMT2212-94-15 14:38:00 Test Item Value Reference Range Interpretation Comments Hep C Ab (test code = Negative *NA*(08/03/15 Hep C Ab) 9:38 AM) [facility]2016-06-23 14:38:00 Test Item Value Reference Range Interpretation Comments eGFR (test code = eGFR) 79 [facility]2016-06-23 14:38:00 Test Item Value Reference Range Interpretation Comments Sodium Lvl (test code = Sodium Lvl) 144 135-145 [facility]2016-06-23 14:38:00 Test Item Value Reference Range Interpretation Comments Chloride Lvl (test code = Chloride Lvl) 104 95-109 [facility]2016-06-23 14:38:00 Test Item Value Reference Range Interpretation Comments Potassium Lvl (test code = Potassium 4.6 3.5-5.1 Lvl) [facility]2016-06-23 14:38:00 Test Item Value Reference Range Interpretation Comments Calcium Lvl (test code = Calcium Lvl) 9.4 8.5-10.5 [facility]2016-06-23 14:38:00 Test Item Value Reference Range Interpretation Comments CO2 (test code = CO2) 31 24-32 [facility]2016-06-23 14:38:00 Test Item Value Reference Range Interpretation Comments Glucose Lvl (test code = Glucose Lvl) 126 70-99 [facility]2016-06-23 14:38:00 Test Item Value Reference Range Interpretation Comments Creatinine Lvl (test code = Creatinine 0.84 0.50-1.40 Lvl) [facility]2016-06-23 14:38:00 Test Item Value Reference Range Interpretation Comments BUN (test code = BUN) 17 7-22 [facility]2016-06-23 14:38:00 Test Item Value Reference Range Interpretation Comments AGAP (test code = AGAP) 13.6 10.0-20.0 [facility] CenterYrnpwflZPQVKBBTTM6232-58-85 14:38:00 Test Item Value Reference Range Interpretation Comments MCH (test code = MCH) 28.8 pg 27.0-31.0 [facility] CenterMswuxsaXQTNJSTIMP2410-66-22 14:38:00 Test Item Value Reference Range Interpretation Comments Hgb (test code = Hgb) 12.1 12.0-16.0 [facility] CenterVuozozwPEUDIOIDNC4916-18-13 14:38:00 Test Item Value Reference Range Interpretation Comments RBC (test code = RBC) 4.20 4.20-5.40 [facility] CenterDbmmywaVTRUACYGUS5818-12-81 14:38:00 Test Item Value Reference Range Interpretation Comments MCV (test code = MCV) 89.2 80.0-98.0 [facility] CenterXrapcfpZKZTEGKKMZ6102-51-26 14:38:00 Test Item Value Reference Range Interpretation Comments Hct (test code = Hct) 37.5 36.0-48.0 [facility] CenterUdqcbzbTAWAVUXHJI4027-20-05 14:38:00 Test Item Value Reference Range Interpretation Comments WBC (test code = WBC) 7.4 3.7-10.4 [facility] CenterDyeihuySEYGJYJUMP6905-30-36 14:38:00 Test Item Value Reference Range Interpretation Comments MCHC (test code = MCHC) 32.3 32.0-36.0 [facility] CenterCtpcbjfQRKBAJZFLC3992-71-37 14:38:00 Test Item Value Reference Range Interpretation Comments RDW (test code = RDW) 14.3 11.5-14.5 [facility] CenterVidhxzmCZUENZCZLK1219-90-20 14:38:00 Test Item Value Reference Range Interpretation Comments MPV (test code = MPV) 9.3 7.4-10.4 [facility] CenterSdildhdHRQMHHJTUA7488-61-84 14:38:00 Test Item Value Reference Range Interpretation Comments Platelet (test code = Platelet) 193 133-450 [facility] CenterKiqgoqwHKTKPRFKNC6031-24-78 14:38:00 Test Item Value Reference Range Interpretation Comments Basophils # (test code 0.0 See_Comment [Aut omated message] The = Basophils #) system which generated this result tra nsmitted reference range : <=0.2. The reference r lv was not used to int erpret this result as normal/abnormal . [facility] CenterUdfqzgnSESAVGSCRA8664-83-57 14:38:00 Test Item Value Reference Range Interpretation Comments Segs (test code = Segs) 61.4 45.0-75.0 [facility] CenterJoxnlhkAFBPLQITGC7110-64-38 14:38:00 Test Item Value Reference Range Interpretation Comments Lymphocytes (test code = Lymphocytes) 30.9 20.0-40.0 [facility] CenterUyvnzhpTYWSDPMVHE7695-05-19 14:38:00 Test Item Value Reference Range Interpretation Comments Lymphocytes # (test code = Lymphocytes 2.3 1.0-5.5 #) [facility] CenterLfyfgwiFLQRYLQEGV4368-06-22 14:38:00 Test Item Value Reference Range Interpretation Comments Monocytes # (test code 0.4 See_Comment [Aut omated message] The = Monocytes #) system which generated this result tra nsmitted reference range : <=0.8. The reference r lv was not used to int erpret this result as normal/abnormal . [facility] CenterDuetblrJVZJMEZPAE5143-42-97 14:38:00 Test Item Value Reference Range Interpretation Comments Segs-Bands # (test code = Segs-Bands #) 4.5 1.5-8.1 [facility] CenterEfxqodwFGCHGRGEKL8519-95-39 14:38:00 Test Item Value Reference Range Interpretation Comments Basophils (test code = 0.5 See_Comment [Aut omated message] The Basophils) system which ge nerated this result tra nsmitted reference range : <=1.0. The reference r lv was not used to int erpret this result as normal/abnormal . [facility] CenterAswxbytSJWOLHXMQS3839-41-33 14:38:00 Test Item Value Reference Range Interpretation Comments Monocytes (test code = Monocytes) 5.8 2.0-12.0 [facility] CenterIzphxnmSOQTVBJZBD9293-39-19 14:38:00 Test Item Value Reference Range Interpretation Comments Eosinophils (test code = 1.4 See_Comment [A utomated message] The Eosinophils) system which ge nerated this result tra nsmitted reference range : <=4.0. The reference r lv was not used to int erpret this result as normal/abnormal . [facility] HospitalLqahxrsRAMFFSXGMF0615-45-98 14:38:00 Test Item Value Reference Range Interpretation Comments Eosinophils # (test code 0.1 See_Comment [A utomated message] The = Eosinophils #) system whic h generated this result tra nsmitted reference range : <=0.5. The reference r lv was not used to int erpret this result as normal/abnormal . [facility] HospitalKyaysqtKTBWXMBKLW8921-05-26 14:38:00 Test Item Value Reference Range Interpretation Comments HIV 1/2 Ab (test code Negative *NA*(08/03/15 = HIV 1/2 Ab) 9:38 AM) [facility] HospitalSijndboWPPUIPVWQN0777-97-43 14:38:00 Test Item Value Reference Range Interpretation Comments Hep C Ab (test code = Negative *NA*(08/03/15 Hep C Ab) 9:38 AM) [facility]2016-06-23 14:38:00 Test Item Value Reference Range Interpretation Comments eGFR (test code = eGFR) 79 [facility]2016-06-23 14:38:00 Test Item Value Reference Range Interpretation Comments Sodium Lvl (test code = Sodium Lvl) 144 135-145 [facility]2016-06-23 14:38:00 Test Item Value Reference Range Interpretation Comments Chloride Lvl (test code = Chloride Lvl) 104 95-109 [facility]2016-06-23 14:38:00 Test Item Value Reference Range Interpretation Comments Potassium Lvl (test code = Potassium 4.6 3.5-5.1 Lvl) [facility]2016-06-23 14:38:00 Test Item Value Reference Range Interpretation Comments Calcium Lvl (test code = Calcium Lvl) 9.4 8.5-10.5 [facility]2016-06-23 14:38:00 Test Item Value Reference Range Interpretation Comments CO2 (test code = CO2) 31 24-32 [facility]2016-06-23 14:38:00 Test Item Value Reference Range Interpretation Comments Glucose Lvl (test code = Glucose Lvl) 126 70-99 [facility]2016-06-23 14:38:00 Test Item Value Reference Range Interpretation Comments Creatinine Lvl (test code = Creatinine 0.84 0.50-1.40 Lvl) [facility] [facility] 14:38:00 Test Item Value Reference Range Interpretation Comments BUN (test code = BUN) 17 7-22 [facility]2016-06-23 14:38:00 Test Item Value Reference Range Interpretation Comments AGAP (test code = AGAP) 13.6 10.0-20.0 [facility]NckdaavHZWIJNGCMH7824-27-51 14:38:00 Test Item Value Reference Range Interpretation Comments MCH (test code = MCH) 28.8 pg 27.0-31.0 [facility] CenterGhfnshnYXTGBCYWEK5133-34-18 14:38:00 Test Item Value Reference Range Interpretation Comments Hgb (test code = Hgb) 12.1 12.0-16.0 [facility] Cent[id number] 14:38:00 Test Item Value Reference Range Interpretation Comments RBC (test code = RBC) 4.20 4.20-5.40 [facility] CenterGfdylfqURCTMCETMN0105-58-15 14:38:00 Test Item Value Reference Range Interpretation Comments MCV (test code = MCV) 89.2 80.0-98.0 [facility] CenterQjniwiiHTZUEPOVGL7287-48-77 14:38:00 Test Item Value Reference Range Interpretation Comments Hct (test code = Hct) 37.5 36.0-48.0 [facility] CenterHllwrwaNDATJWGVWL4484-67-84 14:38:00 Test Item Value Reference Range Interpretation Comments WBC (test code = WBC) 7.4 3.7-10.4 [facility] CenterQraihopIBJPWOECMH0043-96-79 14:38:00 Test Item Value Reference Range Interpretation Comments MCHC (test code = MCHC) 32.3 32.0-36.0 [facility] CenterKknvqcqFLQEWNGTHX7304-61-15 14:38:00 Test Item Value Reference Range Interpretation Comments RDW (test code = RDW) 14.3 11.5-14.5 [facility] CenterLcoofbdPNWLFEMPUO1171-20-75 14:38:00 Test Item Value Reference Range Interpretation Comments MPV (test code = MPV) 9.3 7.4-10.4 [facility] CenterWagzzjvAJAJIFIYVN6981-14-67 14:38:00 Test Item Value Reference Range Interpretation Comments Platelet (test code = Platelet) 193 133-450 [facility] CenterAihtkaiHTZHFMUWHD2848-13-18 14:38:00 Test Item Value Reference Range Interpretation Comments Basophils # (test code 0.0 See_Comment [Aut omated message] The = Basophils #) system which generated this result tra nsmitted reference range : <=0.2. The reference r lv was not used to int erpret this result as normal/abnormal . [facility] CenterWsmecyjNMWYRKYPAJ6292-19-23 14:38:00 Test Item Value Reference Range Interpretation Comments Segs (test code = Segs) 61.4 45.0-75.0 [place] 511966-06-23 14:38:00 Test Item Value Reference Range Interpretation Comments Lymphocytes (test code = Lymphocytes) 30.9 20.0-40.0 [facility] CenterJiedjvtWSYFWYUGGB0747-67-83 14:38:00 Test Item Value Reference Range Interpretation Comments Lymphocytes # (test code = Lymphocytes 2.3 1.0-5.5 #) [facility] CenterYpcbvfmWOTAGPWTQH3070-11-99 14:38:00 Test Item Value Reference Range Interpretation Comments Monocytes # (test code 0.4 See_Comment [Aut omated message] The = Monocytes #) system which generated this result tra nsmitted reference range : <=0.8. The reference r lv was not used to int erpret this result as normal/abnormal . [facility]2016-06-23 14:38:00 Test Item Value Reference Range Interpretation Comments eGFR (test code = eGFR) 79 [facility]2016-06-23 14:38:00 Test Item Value Reference Range Interpretation Comments Sodium Lvl (test code = Sodium Lvl) 144 135-145 [facility]2016-06-23 14:38:00 Test Item Value Reference Range Interpretation Comments Chloride Lvl (test code = Chloride Lvl) 104 95-109 [facility]2016-06-23 14:38:00 Test Item Value Reference Range Interpretation Comments Potassium Lvl (test code = Potassium 4.6 3.5-5.1 Lvl) [facility]2016-06-23 14:38:00 Test Item Value Reference Range Interpretation Comments Calcium Lvl (test code = Calcium Lvl) 9.4 8.5-10.5 [facility]2016-06-23 14:38:00 Test Item Value Reference Range Interpretation Comments CO2 (test code = CO2) 31 24-32 [facility]2016-06-23 14:38:00 Test Item Value Reference Range Interpretation Comments Glucose Lvl (test code = Glucose Lvl) 126 70-99 [facility]2016-06-23 14:38:00 Test Item Value Reference Range Interpretation Comments Creatinine Lvl (test code = Creatinine 0.84 0.50-1.40 Lvl) [facility]2016-06-23 14:38:00 Test Item Value Reference Range Interpretation Comments BUN (test code = BUN) 17 7-22 [facility]2016-06-23 14:38:00 Test Item Value Reference Range Interpretation Comments AGAP (test code = AGAP) 13.6 10.0-20.0 [facility] CenterItllhgxKBMEMBPXHM4337-62-99 14:38:00 Test Item Value Reference Range Interpretation Comments MCH (test code = MCH) 28.8 pg 27.0-31.0 [facility] CenterLarbqyeYUXHISGBOQ2249-18-35 14:38:00 Test Item Value Reference Range Interpretation Comments Hgb (test code = Hgb) 12.1 12.0-16.0 [facility] CenterMjxtfuuPHJPWCKRRH7569-42-65 14:38:00 Test Item Value Reference Range Interpretation Comments RBC (test code = RBC) 4.20 4.20-5.40 [facility] CenterKjqczxwPIIOZXEKXV8766-90-83 14:38:00 Test Item Value Reference Range Interpretation Comments MCV (test code = MCV) 89.2 80.0-98.0 [facility] CenterYbpsxjcRTOFGEMBZL5117-57-87 14:38:00 Test Item Value Reference Range Interpretation Comments Hct (test code = Hct) 37.5 36.0-48.0 [facility] CenterZxgedqpRKHLMOVILM8030-98-64 14:38:00 Test Item Value Reference Range Interpretation Comments WBC (test code = WBC) 7.4 3.7-10.4 [facility] CenterDcqkljcXCWPFVRRSJ0508-34-49 14:38:00 Test Item Value Reference Range Interpretation Comments MCHC (test code = MCHC) 32.3 32.0-36.0 [facility] CenterEqkrfvwZNNNMNIBNX2712-07-59 14:38:00 Test Item Value Reference Range Interpretation Comments RDW (test code = RDW) 14.3 11.5-14.5 [facility] CenterRpdzhwsLNCJASXPUL3257-10-75 14:38:00 Test Item Value Reference Range Interpretation Comments MPV (test code = MPV) 9.3 7.4-10.4 [facility] CenterJbdvjhzOBGGVGBJWG5853-26-82 14:38:00 Test Item Value Reference Range Interpretation Comments Platelet (test code = Platelet) 193 133-450 [facility] CenterWufergwJQOKWFMPYW8645-45-42 14:38:00 Test Item Value Reference Range Interpretation Comments Basophils # (test code 0.0 See_Comment [Aut omated message] The = Basophils #) system which generated this result tra nsmitted reference range : <=0.2. The reference r lv was not used to int erpret this result as normal/abnormal . [facility] CenterKcojcesCSOFFTDQTU7159-89-55 14:38:00 Test Item Value Reference Range Interpretation Comments Segs (test code = Segs) 61.4 45.0-75.0 [facility] CenterAgerydgNICJTDTIBL4225-66-79 14:38:00 Test Item Value Reference Range Interpretation Comments Lymphocytes (test code = Lymphocytes) 30.9 20.0-40.0 [facility] CenterWwrzziuCOWUDSELLE5359-52-06 14:38:00 Test Item Value Reference Range Interpretation Comments Lymphocytes # (test code = Lymphocytes 2.3 1.0-5.5 #) [facility] CenterKqgedwaIZHYLEGESX0687-50-53 14:38:00 Test Item Value Reference Range Interpretation Comments Monocytes # (test code 0.4 See_Comment [Aut omated message] The = Monocytes #) system which generated this result tra nsmitted reference range : <=0.8. The reference r lv was not used to int erpret this result as normal/abnormal . [facility] CenterHcmlddbHYGFEKGYUS7121-34-02 14:38:00 Test Item Value Reference Range Interpretation Comments Segs-Bands # (test code = Segs-Bands #) 4.5 1.5-8.1 [facility] CenterVtmbcdbKJWHTYBTQJ3701-63-67 14:38:00 Test Item Value Reference Range Interpretation Comments Basophils (test code = 0.5 See_Comment [Aut omated message] The Basophils) system which ge nerated this result tra nsmitted reference range : <=1.0. The reference r lv was not used to int erpret this result as normal/abnormal . [facility] CenterLlxypunTGWTVVQSXU5642-37-07 14:38:00 Test Item Value Reference Range Interpretation Comments Monocytes (test code = Monocytes) 5.8 2.0-12.0 [facility] CenterKrjlzohAJERUHUEBY8046-45-44 14:38:00 Test Item Value Reference Range Interpretation Comments Eosinophils (test code = 1.4 See_Comment [A utomated message] The Eosinophils) system which ge nerated this result tra nsmitted reference range : <=4.0. The reference r lv was not used to int erpret this result as normal/abnormal . [facility] CenterPvsveaiVVTFQFEVHF7339-08-38 14:38:00 Test Item Value Reference Range Interpretation Comments Eosinophils # (test code 0.1 See_Comment [A utomated message] The = Eosinophils #) system whic h generated this result tra nsmitted reference range : <=0.5. The reference r lv was not used to int erpret this result as normal/abnormal . [facility]cwnijsVQEHQTIGAZ9156-50-33 14:38:00 Test Item Value Reference Range Interpretation Comments HIV 1/2 Ab (test code Negative *NA*(08/03/15 = HIV 1/2 Ab) 9:38 AM) [facility]4012[facility]97-52 14:38:00 Test Item Value Reference Range Interpretation Comments Hep C Ab (test code = Negative *NA*(08/03/15 Hep C Ab) 9:38 AM) [facility]
[2022-07-17] MEDS ORDERED: KETOROLAC 30 MG/ML INJ ONE (12:35)
[2022-07-17] MEDS ORDERED: hydrOXYzine HCL 25 MG TAB ONE (12:44)
--- NOTE | 2022-07-17 13:42 | RAD REPORT ---
EXAM DESCRIPTION: US - Extrem Venous W Compress Yoav - 07/17/2022 1:26 pm CLINICAL HISTORY: Leg swelling COMPARISON: None. TECHNIQUE: Real-time sonographic evaluation of the bilateral lower extremity deep venous systems was performed. FINDINGS: Normal compressibility, flow augmentation, phasic flow and spontaneous flow is identified in both the left and right lower extremity deep venous systems. No intraluminal filling defects seen. The elongated anechoic fluid collection in the right popliteal fossa measuring 3.3 x 2.3 x 1.1 cent imeter. IMPRESSION: No evidence of DVT in either lower extremity. 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
--- NOTE | 2022-07-17 14:27 | ER ---
Nurse's Notes [facility] Name: Bob Armstrong Age: 61 yrs Sex: Female : 1960 Arrival Date: 07/17/2022 Time: 12:00 Bed 26 Private MD: Diagnosis: Rash and other nonspecific skin eruption;Synovial cyst of popliteal space [Ring], right knee Presentation: 07/17 12:16 Chief complaint: Bilateral foot and ankle tingling and numbness x 3-4 days, bilateral hb leg swelling and pain that starts in the thigh x 2 days. Coronavirus screen: At this time, the client does not indicate any symptoms associated with coronavirus-19. Ebola Screen: No symptoms or risks identified at this time. Initial Sepsis Screen: Does the patient meet any 2 criteria? No. Patient's initial sepsis screen is negative. Does the patient have a suspected source of infection? No. Patient's initial sepsis screen is negative. Risk Assessment: Do you want to hurt yourself or someone else? Patient reports no desire to harm self or others. Onset of symptoms was July 13, 2022. 12:16 Method Of Arrival: Ambulatory hb 12:16 Acuity: JERRY 3 hb Triage Assessment: 12:15 General: Appears in no apparent distress. uncomfortable, Behavior is cooperative, eh3 appropriate for age. 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 - Social history:: Smoking status: unknown. Screenin:[address] [facility] ED Fall Risk Assessment (Adult) Score/Fall Risk Level 0 - 2 = Low Risk. Abuse eh3 screen: Denies threats or abuse. Denies injuries from another. Nutritional screening: No deficits noted. Tuberculosis screening: No symptoms or risk factors identified. Assessment: 12:15 General: Appears in no apparent distress. uncomfortable, Behavior is cooperative, eh3 appropriate for age. Pain: Complains of pain in right leg and left leg. Neuro: Level of Consciousness is awake, alert, obeys commands, Oriented to person, place, time, situation. Cardiovascular: Capillary refill < 3 seconds Patient's skin is warm and dry. Respiratory: Airway is patent Respiratory effort is even, unlabored, Respiratory pattern is regular, symmetrical. GI: Abdomen is round non-distended. : No signs and/or symptoms were reported regarding the genitourinary system. EENT: No signs and/or symptoms were reported regarding the EENT system. Derm: Skin is pink, warm \\T\\ dry. Reports itching. Musculoskeletal: Circulation, motion, and sensation intact. 13:15 Reassessment: Patient appears in no apparent distress at this time. Patient and/or eh3 family updated on plan of care and expected duration. Pain level reassessed. Patient is alert, oriented x 3, equal unlabored respirations, skin warm/dry/pink. Vital Signs: 12:16 BP 124 / 106; Pulse 86; Resp 20; Temp 98.5(O); Pulse Ox 99% on R/A; Weight 102.06 kg; hb Height 5 ft. 11 in. ; Pain 5/10; 13:15 BP 137 / 96; Pulse 72; Resp 18; Pulse Ox 98% on R/A; eh3 12:16 Body Mass Index 31.38 (102.06 kg, 180.34 cm) hb 12:16 Pain Scale: Adult hb ED Course: 12:04 Patient arrived in ED. kj1 12:05 James Gutierrez PA is PHCP. jmm 12:05 Osmar Magallon MD is Attending Physician. jmm 12:15 Patient has correct armband on for positive identification. eh3 12:15 Arm band placed on. eh3 12:18 Triage completed. hb 12:26 Svitlana English, DANTE is Primary Nurse. eh3 13:15 No provider procedures requiring assistance completed. eh3 13:28 US Extremity Venous W Compression Yoav In Process Unspecified. EDMS 15:00 Patient did not have IV access during this emergency room visit. eh3 Administered Medications: 12:30 Drug: Ketorolac IM 30 mg Route: IM; Site: left deltoid; 3 13:15 Follow up: Response: No adverse reaction 3 13:20 Drug: hydrOXYzine PO 50 mg Route: PO; 3 14:20 Follow up: Response: No adverse reaction 3 Medication: 12:15 VIS not applicable for this client. 3 Outcome: 14:26 Discharge ordered by MD. rhoades 15:00 Discharged to home ambulatory. [facility] 15:00 Condition: stable 15:00 Discharge instructions given to patient, Instructed on discharge instructions, follow up and referral plans. medication usage, Demonstrated understanding of instructions, follow-up care, medications, Prescriptions given X 3. 15:12 Patient left the ED. 3 Signatures: Dispatcher [employer] EDMS James Gutierrez PA PA jmm Baxter, Heather, RN Christina Manley Erin, RN RN 3
--- NOTE | 2022-07-17 14:27 | EDPHYS ---
Physician Documentation [facility] Name: Bob Armstrong Age: 61 yrs Sex: Female : 1960 Arrival Date: 07/17/2022 Time: 12:00 Bed 26 Private MD: ED Physician Osmar Magallon HPI: 07/17 12:09 This 61 yrs old Female presents to ER via Ambulatory with complaints of Leg Pain, Leg jmm Swelling. 12:09 The patient presents with pain. The complaints affect the. Onset: The symptoms/episode jmm began/occurred gradually. 61-year-old female with a history of ankylosing spondylitis, depression the presents emerged department with complaints of bilateral lower extremity pain which she describes as being bitten by insects. Patient denies any injury. Patient does have some lower back pain but states that is normal for her. Patient takes gabapentin without relief. Denies fever.. 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 - Social history:: Smoking status: unknown. ROS: 12:09 Constitutional: Negative for fever, chills, and weight loss, Cardiovascular: Negative jmm for chest pain, palpitations, and edema, Respiratory: Negative for shortness of breath, cough, wheezing, and pleuritic chest pain, Abdomen/GI: Negative for abdominal pain, nausea, vomiting, diarrhea, and constipation. 12:09 MS/extremity: Positive for pain. 12:09 Skin: Positive for rash. 12:09 All other systems are negative. Exam: 12:09 Constitutional: This is a well developed, well nourished patient who is awake, alert, jmm and in no acute distress. Head/Face: atraumatic. Eyes: EOMI, no conjunctival erythema appreciated ENT: Moist Mucus Membranes Neck: Trachea midline, Supple Chest/axilla: Normal chest wall appearance and motion. Cardiovascular: Regular rate and rhythm. No edema appreciated Respiratory: Normal respirations, no respiratory distress appreciated Abdomen/GI: Non distended Back: Normal ROM 12:09 Musculoskeletal/extremity: Full range of motion appreciated to the legs bilaterally, compartments are soft, full dorsalis pedis pulse, neurovascular intact. 12:09 Skin: Mild erythematous rash noted to the right forearm. 12:09 Neuro: Orientation: is normal, Mentation: is normal, Memory: is normal, Cranial nerves: 12:09 Psych: Behavior/mood is pleasant, cooperative. Vital Signs: 12:16 BP 124 / 106; Pulse 86; Resp 20; Temp 98.5(O); Pulse Ox 99% on R/A; Weight 102.06 kg; hb Height 5 ft. 11 in. ; Pain 5/10; 13:15 BP 137 / 96; Pulse 72; Resp 18; Pulse Ox 98% on R/A; eh3 12:16 Body Mass Index 31.38 (102.06 kg, 180.34 cm) hb 12:16 Pain Scale: Adult hb MDM: 12:09 Patient medically screened. [facility] 18:06 Differential diagnosis: Peripheral neuropathy, DVT. Data reviewed: vital signs, nurses [facility] notes. 07/17 12:23 Order name: US Extremity Venous W Compression Yoav; Complete Time: 13:45 [facility] Administered Medications: 12:30 Drug: Ketorolac IM 30 mg Route: IM; Site: left deltoid; eh3 13:15 Follow up: Response: No adverse reaction eh3 13:20 Drug: hydrOXYzine PO 50 mg Route: PO; eh3 14:20 Follow up: Response: No adverse reaction eh3 Disposition Summary: 07/17/22 14:26 Discharge Ordered Location: Home [facility] Condition: Stable [facility] Diagnosis - Rash and other nonspecific skin eruption jmm - Synovial cyst of popliteal space [Ring], right knee [facility] Followup: [facility] - With: Private Physician - When: 2 - 3 days - Reason: Recheck today's complaints, Continuance of care, Re-evaluation by your physician Discharge Instructions: - Discharge Summary Sheet [facility] - Ring Cyst [facility] Forms: - Medication Reconciliation Form [facility] - Thank You Letter jmm - Antibiotic Education [facility] - Prescription Opioid Use [facility] Prescriptions: - Elimite 5 % Topical Cream - apply 1 application by TOPICAL route one time Wash after 12 hours.; 60 gram; [facility] Refills: 0, Product Selection Permitted - Hydroxyzine HCl 25 mg Oral Tablet - take 1 tablet by ORAL route every 6 hours As needed; 30 tablet; Refills: 0, [facility] Product Selection Permitted - Diclofenac Sodium 75 mg Oral Tablet Sustained Release - take 1 tablet by ORAL route 2 times per day; 30 tablet; Refills: 0, Product [facility] Selection Permitted Addendum: 07/20/2022 07:03 Co-signature as Attending Physician, Osmar Magallon MD I reviewed the patient's care r n provided by the Advanced Practice Provider and agree with the diagnosis and treatment plan. Signatures: Dispatcher [employer] EDJames Weiner PA PA jmm Nieto, Roman, MD MD rn Baxter, Heather, RN DANTE Svitlana English RN RN eh3
[2022-07-17 15:43] VITALS: TEMP 98.5
[2022-07-17 15:45] VITALS: BP 137/96; O2SAT 98
== END 2022-07-17 15:12 | disposition home or self-care (01) ==
LOC: ER 12:00
DX: R21 Rash and other nonspecific skin eruption (principal); M71.21 Synovial cyst of popliteal space [Baker], right knee; R20.0 Anesthesia of skin; M79.652 Pain in left thigh; M79.651 Pain in right thigh; Z88.8 Allergy status to other drugs, medicaments and biological substances
CPT/HCPCS: 93970; 96372; 99284

== ENCOUNTER 2022-08-18 00:21 | Emergency (ER) | payer OTHER ==
--- OUTSIDE RECORDS SUMMARY | 2022-08-18 00:55 | XMS REPORT | Continuity of Care Document ---
:1960 Author Organization [facility] t Address [address] [facility] [address] [place] [address] Care Team Providers Name Role Phone Luciano Travis Primary Care Physician [phone] Luciano Tarvis Attending Clinician Unavailable ANDRESSA PUCKETT Attending Clinician Unavailable SHEFALI HOOPER Attending Clinician Unavailable QUINN SKINNER Attending Clinician Unavailable QUINN SKINNER Attending Clinician Unavailable KARAN JOHNSON Attending Clinician Unavailable Karan Johnson MD Attending Clinician Brody Hinds MD Attending Clinician Tuyet Cleveland MD Attending Clinician Aba Estrada MD Attending Clinician [phone] BRODY HINDS Attending Clinician Unavailable Doctor Unassigned, [place] Attending Clinician Unavailable Jordy HOWELL, Ct Attending [...] Number Effective Date Expiration Date S gaby [facility] [id number] 2020 00:00:00 [employer] MEDICARE [id number] 2020 00:00:00 AARP [facility] 53 [id number] 2021 [facility] ADVANTAGE 00:00:00 - [facility] [id number] 2013 2020 00:00:00 00:00:00 Problems Condition Condition [...] EAR" RIGHT EAR" 00:01: He naomi Active 11/11/2019 [facility] [place] Troponin I Troponin I Disease Active U [...] 12:48:00 l Active 00:00: [place] 04/01/2016 00 MH [place] STRESS STRESS Diagnosis Active 2015-08-10 Me moria URINARY URINARY 4-14 07:24:00 l INCONTINEN INCONTINEN 00:00: He naomi CE-N39.3 / CE-N39.3 / 00 URET URET Active 05/25/2015 [place] R31.2 - R31.2 - Diagnosis Active 2015-06-06 Memoria OTHER OTHER 3-14 16:22:00 l MICROSCOPI MICROSCOPI 00:01: Mikel naomi Pineda 00 HEMATURIA HEMATURIA Active 04/24/2015 [facility] [place], OPID [place] 727.00 - 727.00 - Diagnosis Active 2011-09-02 Memoria SYNOVITIS SYNOVITIS - 08:58:00 l NOS NOS Active 00:01: Randy [...] n legs leg Spirit syndrome syndrome - [facility] Fibromyalg Fibromyalg Problem C ommon ia ia [facility] Type II Diabetes Problem Common diabetes type 2, Spirit mellitus controlled - CH I well controlled [facility] Morbid Morbid Problem Common obesity obesity [facility] [id number] Body mass Problem Com mon index Spirit [BMI] - [facility] 32.0-32.9, [facility] [id number] Other Problem Common obesity Spirit due to - [facility] excess [facility] Diabetic Diabetic Problem Commo n neuropathy neuropathy Sp marco antonio [facility] Fatty Fatty Problem Common liver liver [facility] Insomnia Insomnia Problem Commo n [facility] [id number] Incontinen Problem Com mon ce of Spirit feces, - [facility] unspecifie [facility] fecal 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 spine [facility] [id number] Macular Problem Comm on hole of Spirit left eye - [facility] Mixed Hyperlipid Problem Commo n hyperlipid emia, Spirit emia mixed [facility] Iron Iron Problem Common deficiency deficiency Sp marco antonio anemia due anemia due - CHI to chronic to chronic St blood loss blood loss [facility] Obstructiv Obstructiv Problem C ommon e sleep e sleep Spirit apnea apnea - [facility] Overactive Overactive Problem C ommon bladder bladder [facility] [id number] Chronic Problem Common obstructiv Spirit e [facility] Medica l d COPD Center type [id number] Primary Problem Commo n osteoarthr Spirit itis of - CHI both knees [facility] [id number] Urinary Problem Commo n incontinen Spirit ce, - [facility] unspecifie [facility] type [facility] [id number] Altered Problem Commo n mental Spirit status, - [facility] unspecifie [facility] altered [facility] mental Medical status Center type [id number] FCI Problem Com mon (current) Spirit use of - [facility]I insulin [facility] [id number] Decreased Problem Com mon vision of Spirit left eye [facility] Essential Benign Problem Common hypertensi essential Spi rit on HTN [facility] [id number] Daytime Problem Comm on 00 somnolence [facility] Vitamin D Vitamin D Problem Com mon deficiency deficiency Sp marco antonio [facility] Rheumatoid Rheumatoid Problem C ommon arthritis arthritis Spir [facility] [id number] Type 2 Problem Common diabetes Spirit mellitus - [facility] with [facility] kidney Center disease [id number] Type 2 Problem Common diabetes [facility] mellitus - [facility] with [facility] Neuropathy Neuropathy Problem C ommon Spirit [facility] [id number] Memory Problem Common change Spirit [facility] [id number] History of Problem Co mmon suicidal Spirit ideation [facility] Anxiety Anxiety Problem Resolve 2019-11-26 Memoria (finding) (finding) d 23:02:23 l Resolved [place] Problem 11/26/2019 NISHA KeenanTomasa H [place] Depressive Depressiv Problem Resolve 2019-11-26 Memoria disorder e disorder d 23:02:23 l (disorder) (disorder) He rmann Resolved Problem 11/26/2019 NISHA KeenanTomasa H [place] Diabetes Diabetes Problem Resolve 2019-11-26 Memoria mellitus mellitus d 23:02:23 l (disorder) (disorder) He rmann Resolved Problem 11/26/2019 NISHA KeenanTomasa H [place] Endometrio Endometri Problem Resolve 2019-11-26 Memoria sis osis d 23:02:23 l (disorder) (disorder) He rmann Resolved Problem 11/26/2019 NISHA Keenan,Tomasa H [place] Fibromyosi Fibromyos Problem Resolve 2019-11-26 Memoria tis itis d 23:02:23 l (disorder) (disorder) He rmann Resolved Problem 11/26/2019 NISHA KeenanM H [place] Lumbar Lumbar Problem Resolve 2019-11-26 Me moria spondylosi spondylosi d 23:02:23 l s s [place] (disorder) (disorder) Resolved Problem 11/26/2019 Tomasa Farrar [place] Motion Motion Problem Resolve 2019-11-26 Mem oria sickness sickness d 23:02:23 l (disorder) (disorder) Mikel salgado Resolved Problem 11/26/2019 Tomasa Farrar H [place] Sleep Sleep Problem Resolve 2019-11-26 Alonzo summer apnea apnea d 23:02:23 l (finding) (finding) Daisha magaña Resolved Problem 11/26/2019 Tomasa Farrar H [place] History of Past Illness Condition Condition Condition Status Onset Resolution Last Treating Co mments Source Name Details Category Date Date Treatment Clinician Date Discharge Discharge Problem 2016-04-04 2016-04-04 Memoria Diagnosis: Diagnosis: 2- 04:32:29 04:32:29 l Pain and Pain and 06:00: Randy n swelling swelling 00 of right of right knee knee 04/01/2016 04/04/2016 [place] Allergies, Adverse Reactions, Alerts Allergy Allergy Status [...] Uni vers ycin ty to See comments 5-12 ity of adverse 00:00: [place] reaction 00 [...] pregabal Active Unknown Commo n in in [facility] canaglif canaglif Active Unknown Commo n lozin lozin [facility] Methylpr Methylpr Active Unknown Commo n edkatie edflasholo [facility] glimepir glimepir Active Unknown Commo n timothy timothy [facility] metformi metformi Active Unknown Commo n n n [facility] Lyrica Lyrica Active Memoria l [place] Latex Latex Active Memoria l [place] Adhesive [...] Phys icians diabetes mellitus Natural father Stroke [facility] Natural mother Lung cancer [facility] Social History Social Habit Start Date Stop Date Quantity Comments Source History of Tobacco [facility] - Use [facility] Gender identity [facility] Sexual orientation [facility] Alcohol intake 2022-01-25 2022-01-25 Ex-drinker [facility] 00:00:00 00:00:00 (finding) Hospital History of Social 2022-01-25 2022-01-[address] function 00:00:00 00:00:00 Hospital Alcohol Comment 2022-01-24 2022-01-24 rarely [facility] 00:00:00 00:00:00 Hospital Exposure to 2021-10-10 2021-10-20 Not sure [facility] SARS-CoV-2 (event) 00:00:00 15:53:00 Tobacco use and 2020-06-22 2020-06-22 Smokeless [facility] exposure 00:00:00 00:00:00 tobacco non-user Hospital Social History 2015-08-03 2015-08-03 [facility] dustyarchana 14:18:54 14:18:54 Sex Ass[birth year] At [birth year] [facility] 00:00:00 00:00:00 Hospital Smoking Status Start Date Stop Date Source Never smoked tobacco [facility] Medications Ordered Filled Start Stop [...] No QD predniSONE 20 MG 20 MG -30 - 20 MG 00:00: 00:00 00 :00 [...] l tablet day. PILOCARPINE 2021-02 Yes 7.5mg Q.[id number] Take 7.5 [facility] HCL ORAL 2-[id number] 03:06: 3D mouth 3 [...] 07 l lithium 300 2021-02 Yes 300mg Q.[id number] Take 300 [facility] MG capsule 2-[id number] 03:06: 3D mouth 3 [...] 30 (thirty) days. insulin 2021-02 Yes 22U Q.[id number] Inject 22 [facility] lispro 2-[id number] (HUMALOG 03:06: 3D under the [...] 07 (two) l times a day. hydroxychlo 2022-1 Yes Q.5D Take by Met hodi roquine 2-[address] (PLAQUENIL) 03:06: (two) Hospi ta 200 mg 07 times a l tablet day. PILOCARPINE 2021-02 Yes 7.5mg Q.00106098 Take 7.5 [facility] HCL ORAL 2-[id number] 03:06: 3D mouth 3 [...] 07 l lithium 300 2021-02 Yes 300mg Q.[id number] Take 300 [facility] MG capsule 2-[id number] 03:06: 3D mouth 3 [...] 30 (thirty) days. insulin 2021-02 Yes 22U Q.[id number] Inject 22 [facility] lispro 2-[id number] (HUMALOG 03:06: 3D under the [...] 07 (two) l times a day. hydroxychlo 2022-1 Yes Q.5D Take by Met hodi roquine 2-[address] (PLAQUENIL) 03:06: (two) Hospi ta 200 mg 07 times a l tablet day. PILOCARPINE 2021-02 Yes 7.5mg Q.59305501 Take 7.5 [facility] HCL ORAL 2-[id number] 03:06: 3D mouth 3 [...] 07 l lithium 300 2021-02 Yes 300mg Q.[id number] Take 300 [facility] MG capsule 2-[id number] 03:06: 3D mouth 3 [...] 30 (thirty) days. insulin 2021-02 Yes 22U Q.[id number] Inject 22 [facility] lispro 2-[id number] (HUMALOG 03:06: 3D under the Hosp ruiz KWIKPEN 07 skin 3 l INSULIN (three) SUBQ) times a day with meals. insulin 2021-02 Yes 11U QD Inject 11 Metho di lispro 2-[address] (HUMALOG 03:06: under the Hosp ruzi KWIKPEN 07 skin l INSULIN nightly. SUBQ) [...] 07 (two) l times a day. hydroxychlo 2022-1 Yes Q.5D Take by Met hodi roquine 2-[address] (PLAQUENIL) 03:06: (two) Hospi ta 200 mg 07 times a l tablet day. PILOCARPINE 2021-02 Yes 7.5mg Q.59683950 Take 7.5 [facility] HCL ORAL 2-[id number] 03:06: 3D mouth 3 [...] 07 l lithium 300 2021-02 Yes 300mg Q.[id number] Take 300 [facility] MG capsule 2-[id number] 03:06: 3D mouth 3 [...] 30 (thirty) days. insulin 2021-02 Yes 22U Q.[id number] Inject 22 [facility] lispro 2-[id number] (HUMALOG 03:06: 3D under the [...] l tablet day. PILOCARPINE 2021-02 Yes 7.5mg Q.[id number] Take 7.5 [facility] HCL ORAL 2-[id number] 03:06: 3D mouth 3 [...] l tablet day. PILOCARPINE 2021-02 Yes 7.5mg Q.[id number] Take 7.5 Methodi HCL ORAL 2-[id number] 03:06: 3D mouth 3 [...] 07 l lithium 300 2021-02 Yes 300mg Q.[id number] Take 300 [facility] MG capsule 2-[id number] 03:06: 3D mouth 3 [...] 30 (thirty) days. insulin 2021-02 Yes 22U Q.[id number] Inject 22 [facility] lispro 2-[id number] (HUMALOG 03:06: 3D under the [...] 07 l lithium 300 2021-02 Yes 300mg Q.[id number] Take 300 Method[facility] MG capsule 2-[id number] 03:06: 3D mouth 3 [...] 30 (thirty) days. insulin 2021-02 Yes 22U Q.[id number] Inject 22 [facility] lispro 2-[id number] (HUMALOG 03:06: 3D under the [...] l tablet day. PILOCARPINE 2021-02 Yes 7.5mg Q.[id number] Take 7.5 [facility] HCL ORAL 2-[id number] 03:06: 3D mouth 3 [...] 07 l lithium 300 2021-02 Yes 300mg Q.[id number] Take 300 [facility] MG capsule 2-[id number] 03:06: 3D mouth 3 [...] 30 (thirty) days. insulin 2021-02 Yes 22U Q.[id number] Inject 22 [facility] lispro 2-[id number] (HUMALOG 03:06: 3D under the [...] l tablet day. PILOCARPINE 2021-02 Yes 7.5mg Q.[id number] Take 7.5 [facility] HCL ORAL 2-[id number] 03:06: 3D mouth 3 [...] 07 l lithium 300 2021-02 Yes 300mg Q.[id number] Take 300 [facility] MG capsule 2-[id number] 03:06: 3D mouth 3 [...] 30 (thirty) days. insulin 2021-02 Yes 22U Q.[id number] Inject 22 [facility] lispro 2-[id number] (HUMALOG 03:06: 3D under the [...] l tablet day. PILOCARPINE 2021-02 Yes 7.5mg Q.[id number] Take 7.5 [facility] HCL ORAL 2-[id number] 03:06: 3D mouth 3 [...] 07 l lithium 300 2021-02 Yes 300mg Q.[id number] Take 300 [facility] MG capsule 2-[id number] 03:06: 3D mouth 3 [...] 30 (thirty) days. insulin 2021-02 Yes 22U Q.[id number] Inject 22 [facility] lispro 2-[id number] (HUMALOG 03:06: 3D under the [...] dose
In dications: urgency incontinen ce lisinopril- 2-0 Yes 1{tbl} QD Take 1 UT hydroCHLORO 9-14 tablet by [facility] thiazide 14:07: mouth 1 20-12.5 MG 53 (one) time tablet each day. leflunomide 2022-0 Yes 20mg QD Take 20 mg UT (Arava) 20 - by mouth 1 Hea lth MG tablet 14:07: (one) time 53 each day. lisinopril- 2-0 Yes 1{tbl} QD Take 1 UT hydroCHLORO 9-14 tablet by a lt thiazide 14:07: mouth 1 20-12.5 MG [...] 300 MG 14:04: capsule 54 sulfamethox 2021-0 2022- No [id number] 1{tbl} Q.5D Take 1 UT azole-trime 10-24 tablet by He alth thoprim 00:00: 04:59 mouth in (Bactrim 00 :00 the DS) 800-160 morning MG tablet and 1 tablet in the evening. Do all this for 7 days. sulfamethox 202-0 2021- No [id number] 1{tbl} Q.5D Take 1 UT azole-trime 10-24 tablet by He alth thoprim 00:00: 04:59 mouth in (Bactrim 00 :00 the DS) 800-160 morning MG tablet and 1 tablet in the evening. Do all this for 7 days. gabapentin 2022-0 Yes 1200mg Take 1,200 Univers 600 mg 8-31 mg by ity of tablet 13:32: mouth in [place] [address] the Medical morning Branch and 1,200 mg in the evening. gabapentin 2022-0 Yes 1200mg Take 1,200 Univers 600 mg 8-31 mg by ity of tablet 13:32: mouth in [place] [address] the Medical morning Branch and 1,200 mg in the evening. gabapentin 2022-0 Yes 1200mg Take 1,200 Univers 600 mg 8-31 mg by ity of tablet 13:32: mouth in [place] [address] the Medical morning Branch and 1,200 mg in the evening. gabapentin 2022-0 Yes 1200mg Take 1,200 Univers 600 mg 8-31 mg by ity of tablet 13:32: mouth in [place] [address] the Medical morning Branch and 1,200 mg in the evening. gabapentin 2022-0 Yes 1200mg Take 1,200 Univers 600 mg 8-31 mg by ity of tablet 13:32: mouth in [place] [address] the Medical morning Branch and 1,200 mg in the evening. gabapentin 2022-0 Yes 1200mg Take 1,200 Univers 600 mg 8-31 mg by ity of tablet 13:32: mouth in [address] Medical morning [place] and 1,200 mg in the evening. prednisoLON 2022-0 2022- No 1[drp] 1 Drop U nivers E acetate 1 8- 08-31 every 2 ity of % 13:30: 00:00 (two) [place] ophthalmic 41 :00 hours as Medic al suspension needed for Bra nch drops Itching. prednisoLON 2-0 2022- No 1[drp] 1 Drop U nivers E acetate 1 8- 08-31 every 2 ity of % 13:30: 00:00 (two) [place] ophthalmic 41 :00 hours as Medic al suspension needed for Bra nch drops Itching. pilocarpine 202-0 2022- No 7.5mg Take 7.5 Univers 7.5 mg 8-31 08-31 mg by ity of tablet 13:30: 00:00 mouth 3 [place] 38 :00 (three) Medical times [place] daily. pilocarpine 2022-0 2022- No 7.5mg Take 7.5 Univers 7.5 mg 8-31 08-31 mg by ity of tablet 13:30: 00:00 mouth 3 [place] 38 :00 (three) Medical times [place] daily. Milnacipran 2021- No 50mg Take 50 mg Univers (SAVELLA) 10-10 by mouth ity o f 50 mg 13:30: 00:00 at [place] tablet 29 :00 bedtime. Medical Branch Milnacipran 2021- No 50mg Take 50 mg Univers (SAVELLA) 10-10 by mouth ity o f 50 mg 13:30: 00:00 at [place] tablet 29 :00 bedtime. Medical Branch suvorexant 2021- No 20mg Take 20 mg Univers (BELSOMRA) 10-10 by mouth ity of 20 mg Tab 13:30: 00:00 at [place] 19 :00 bedtime. Medical Branch suvorexant 2021- No 20mg Take 20 mg Univers (BELSOMRA) 10-10 by mouth ity of 20 mg Tab 13:30: 00:00 at [place] 19 :00 bedtime. Medical Branch simvastatin 2021- No 40mg Take 40 mg Univers 40 mg 10-10 by mouth ity of tablet 13:30: 00:00 at [place] 04 :00 bedtime. Medical Branch simvastatin 2021- No 40mg Take 40 mg Univers 40 mg 10-10 by mouth ity of tablet 13:30: 00:00 at [place] 04 :00 bedtime. Medical Branch insulin 2021- No 160U inject 160 Uni vers glargine 10-10 Units ity of U-300 conc 13:29: 00:00 under the [place] (TOUJEO 49 :00 skin. [facility] U-300 INSULIN) 300 unit/mL (1.5 mL) InPn insulin 2021- No 160U inject 160 Uni vers glargine 10-10 Units ity of U-300 conc 13:29: 00:00 under the [place] (TOUJEO 49 :00 skin. [facility] U-300 INSULIN) 300 unit/mL (1.5 mL) InPn traZODONE 2021- No 100mg Take Univer s 100 mg 10-10 100-200 mg ity of tablet 13:29: 00:00 by mouth [place] 30 :00 at bedtime Medical as needed Branch for Insomnia. traZODONE 2021-2021- No 100mg Take Univer s 100 mg 10-10 100-200 mg ity of tablet :: 00:00 by mouth [place] 30 :00 at bedtime Medical as needed Branch for Insomnia. SERTraline 2021-0 2021- No 50mg Take 50 mg Univers 50 mg 10-10 by mouth. ity of tablet 13:: 00:00 [place] 05 :00 Medical Branch SERTraline 2021-0 2021- No 50mg Take 50 mg Univers 50 mg 10-10 by mouth. ity of tablet 13:: 00:00 [place] 05 :00 Medical Branch lithium 2021-2021- No 300mg Take 300 Univ ers carbonate 10-10 08-31 mg by ity of 300 mg 13:28: 00:00 mouth. [place] capsule 53 :00 Medical Branch lithium 2021-2021- No 300mg Take 300 Univ ers carbonate 10-10 08-31 mg by ity of 300 mg 13:28: 00:00 mouth. [place] capsule 53 :00 [facility] Branch hydroxychlo 0 2021- No 200mg Take 200 Univers roquine 200 - 08-31 mg by ity of mg tablet 13:28: 00:00 mouth 2 [place] 44 :[place] (two) Medical times Branch daily. hydroxychlo 2021-0 2021- No 200mg Take 200 Univers roquine 200 - 08-31 mg by ity of mg tablet 13:28: 00:00 mouth 2 [place] 44 :[place] (two) Medical times Branch daily. foLIC acid 2021- No 2mg Take 2 mg U nivers 1 mg tablet 10-10 by mouth ity of 13:28: 00:00 daily. [place] :00 [facility] Branch foLIC acid 2021-2021- No 2mg Take 2 mg U nivers 1 mg tablet 10-10 by mouth ity of 13:28: 00:00 daily. [place] 25 :00 [facility] Branch exenatide 2021- No 2mg inject 2 Uni vers microsphere 10-10 mg under ity of s 2 mg/0.65 13:27: 00:00 the skin. [place] mL 56 :00 Medical injection Branch exenatide 2021- No 2mg inject 2 Uni vers microsphere 10-10 08-31 mg under ity of s 2 mg/0.65 13:27: 00:00 the skin. [place] mL 56 :00 Medical injection Branch doxepin 10 2021- No 10mg Take 10 mg Univers mg capsule 10-10 by mouth. ity of 13:27: 00:00 [place] 38 :00 Medical Branch doxepin 10 2021- No 10mg Take 10 mg Univers mg capsule 10-10 by mouth. ity of 13:27: 00:00 [place] 38 :00 Medical Branch cycloSPORIN 2021-2021- No 1[drp] Place 1 Univers E 10-10-31 Drop in ity of (RESTASIS) 13:27: 00:00 [...] it y of tablet 13:27: 00:00 (three) [place] 32 :00 times Medical daily. Branch celecoxib 2021-0 202- No 200mg Take 200 Un emanuel (CELEBREX) [...] mouth ity of tablet 13:27: 00:00 daily. [place] 22 :00 Medical Branch aspirin 81 2021- No 81mg Take 81 mg Univers mg chewable 10-10 by mouth ity of tablet 13:27: 00:00 daily. [place] 22 :00 Medical Branch Armodafinil 2021- No [...] us MG/1.5ML solution pen-injecto r semaglutide Yes [id number] Take U nivers (OZEMPIC) 8- 0.25mg ity of 0.25 mg or 00:00: weekly for [place] 0.5 mg(2 00 two weeks, Medic al mg/1.5 mL) then Branch PnIj increase to 0.5mg weekly if tolerate insulin Yes [id number] 30U inject Uni vers degludec 8- 30-40 ity of (TRESIBA 00:00: Units [place] FLEXTOUCH 00 under the Medic al U-200) 200 skin every Bra nch unit/mL (3 morning. mL) InPn E11.65 flash Yes [id number] 1{kit} 1 Kit Univ ers glucose 8- every 14 ity of sensor 00:00: (fourteen) [place] (FREESTYLE 00 days. Medical TERRI 2 E11.65 Branch SENSOR) Kit Insulin Yes [id number] Use as Uni vers [place], 8- directed ity of Disposable, 00:00: once daily [place] (BD LOUIE E11.65 Medical 2ND GEN PEN Branch NEEDLE) 32 gauge x 5/32" Ndle semaglutide Yes [id number] Take U nivers (OZEMPIC) 8- 0.25mg ity of 0.25 mg or 00:00: weekly for [place] 0.5 mg(2 00 two weeks, Medic al mg/1.5 mL) then Branch PnIj increase to 0.5mg weekly if tolerate insulin Yes [id number] 30U inject Uni vers degludec 8- 30-40 ity of (TRESIBA 00:00: Units [place] FLEXTOUCH 00 under the Medic al U-200) 200 skin every Bra nch unit/mL (3 morning. mL) InPn E11.65 flash Yes [id number] 1{kit} 1 Kit Univ ers glucose 8-31 every 14 ity of sensor 00:00: (fourteen) [place] (FREESTYLE 00 days. Medical TERRI 2 E11.65 Branch SENSOR) Kit Insulin Yes [id number] Use as Uni vers [place], 8- directed ity of Disposable, 00:00: once daily [place] (BD LOUIE 00 E11.65 Medical 2ND GEN PEN Branch NEEDLE) 32 gauge x 5/32" Ndle semaglutide Yes [id number] Take U nivers (OZEMPIC) 8- 0.25mg ity of 0.25 mg or 00:00: weekly for [place] 0.5 mg(2 00 two weeks, Medic al mg/1.5 mL) then Branch PnIj increase to 0.5mg weekly if tolerate insulin Yes [id number] 30U inject Uni vers degludec 8 30-40 ity of (TRESIBA 00:00: Units [place] FLEXTOUCH 00 under the Medic al U-200) 200 skin every Bra nch unit/mL (3 morning. mL) InPn E11.65 flash Yes [id number] 1{kit} 1 Kit Univ ers glucose - every 14 ity of sensor 00:00: (fourteen) [place] (FREESTYLE 00 days. Medical TERRI 2 E11.65 Branch SENSOR) Kit Insulin Yes [id number] Use as Uni vers [place], 10-10 directed ity of Disposable, 00:00: once daily [place] (BD LOUIE Medical 2ND GEN PEN Branch NEEDLE) 32 gauge x 5/32" Ndle semaglutide Yes [id number] Take U nivers (OZEMPIC) 8- 0.25mg ity of 0.25 mg or 00:00: weekly for [place] 0.5 mg(2 00 two weeks, Medic al mg/1.5 mL) then Branch PnIj increase to 0.5mg weekly if tolerate insulin Yes [id number] 30U inject Uni vers degludec 10-10 30-40 ity of (TRESIBA 00:00: Units [place] FLEXTOUCH 00 under the Medic al U-200) 200 skin every Bra nch unit/mL (3 morning. mL) InPn E11.65 flash Yes [id number] 1{kit} 1 Kit Univ ers glucose 8-31 every 14 ity of sensor 00:00: (fourteen) [place] (FREESTYLE 00 days. Medical TERRI 2 E11.65 Branch SENSOR) Kit Insulin Yes [id number] Use as Uni vers [place], 8- directed ity of Disposable, 00:00: once daily [place] (BD LOUIE . Medical 2ND GEN PEN Branch NEEDLE) 32 gauge x 5/32" Ndle semaglutide Yes [id number] Take U nivers (OZEMPIC) 8 0.25mg ity of 0.25 mg or 00:00: weekly for [place] 0.5 mg(2 00 two weeks, Medic al mg/1.5 mL) then Branch PnIj increase to 0.5mg weekly if tolerate insulin Yes [id number] 30U inject Uni vers degludec 10-10 30-40 ity of (TRESIBA 00:00: Units [place] FLEXTOUCH 00 under the Medic al U-200) 200 skin every Bra nch unit/mL (3 morning. mL) InPn E11.65 flash Yes [id number] 1{kit} 1 Kit Univ ers glucose 8- every 14 ity of sensor 00:00: (fourteen) [place] (FREESTYLE 00 days. Medical TERRI 2 E11.65 Branch SENSOR) Kit Insulin Yes [id number] Use as Uni vers [place], 8 directed ity of Disposable, 00:00: once daily [place] (BD LOUIE . Medical 2ND GEN PEN Branch NEEDLE) 32 gauge x 5/32" Ndle insulin Yes [id number] 30U inject Uni vers degludec 10-10 30-40 ity of (TRESIBA 00:00: Units [place] FLEXTOUCH 00 under the Medic al U-200) 200 skin every Bra nch unit/mL (3 morning. mL) InPn E11.65 flash Yes [id number] 1{kit} 1 Kit Univ ers glucose 8-31 every 14 ity of sensor 00:00: (fourteen) [place] (FREESTYLE 00 days. Medical TERRI 2 E11.65 Branch SENSOR) Kit Insulin Yes [id number] Use as Uni vers [place], 8- directed ity of Disposable, 00:00: once daily [place] (BD LOUIE E11.65 Medical 2ND GEN PEN Branch NEEDLE) 32 gauge x 5/32" Ndle semaglutide 0 2023- No [id number] Take Univers (OZEMPIC) 8 04-25 0.25mg ity of 0.25 mg or 00:00: 00:00 weekly for [place] 0.5 mg(2 00 :00 two weeks, Medic al mg/1.5 mL) then Branch PnIj increase to 0.5mg weekly if tolerate flash 2021- No [id number] 1{kit} 1 Kit Uni vers glucose 10-10 every 14 ity of sensor 00:00: 00:00 (fourteen[place] (FREESTYLE 00 :00 days. Medical TERRI 2 E11.65 Branch SENSOR) Kit flash 2021- No [id number] 1{kit} 1 Kit Uni vers glucose 10-10 every 14 ity of sensor 00:00: 00:00 ([place]teen[place] (FREESTYLE 00 :00 days. Medical TERRI 2 E11.65 Branch SENSOR) Kit traMADol traMADol 2021- No 1{table QD traMADol HCl 50 MG HCl 50 MG 04-03 t_as_ne HCl 50 MG 00:00: 00:00 eded} 00 :00 sulfamethox 2021-0 Yes [id number] 1{tbl} Take 1 [facility] azole-trime 2-14 tablet by ity of thoprim 00:00: mouth [place] 800-160 mg 00 every 12 Medic al per tablet (twelve) Branc h hours. doxycycline 2021-0 Yes [id number] 100mg Take 1 [facility] hyclate 100 2-14 capsule by it y of mg capsule 00:00: mouth 2 [place] 00 (two) Medical times Branch daily. sulfamethox 2021-0 Yes [id number] 1{tbl} Take 1 [facility] azole-trime 2-14 tablet by ity of thoprim 00:00: mouth [place] 800-160 mg 00 every 12 Medic al per tablet (twelve) Branc h hours. doxycycline 2021-0 Yes [id number] 100mg Take 1 [facility] hyclate 100 2-14 capsule by it y of mg capsule 00:00: mouth 2 [place] 00 (two) Medical times Branch daily. sulfamethox 2-0 Yes [id number] 1{tbl} Take 1 [facility] azole-trime 2-14 tablet by ity of thoprim 00:00: mouth [place] 800-160 mg 00 every 12 Medic al per tablet (twelve) Branc h hours. doxycycline Yes [id number] 100mg Take 1 [facility] hyclate 100 2-14 capsule by it y of mg capsule 00:00: mouth 2 [place] 00 (two) Medical times Branch daily. sulfamethox 2021- No [id number] 1{tbl} Take 1 [facility] azole-trime 2-14 08-31 tablet by it y of thoprim 00:00: 00:00 mouth [place] 800-160 mg 00 :00 every 12 Medic al per tablet (twelve) Branc h hours. doxycycline 2021- No [id number] 100mg Take 1 [facility] hyclate 100 2-14 -31 capsule by i ty of mg capsule 00:00: 00:00 mouth 2 [place] as 00 :00 (two) Medical times Branch daily. sulfamethox 2021- No [id number] 1{tbl} Take 1 [facility] azole-trime 2-14 -31 tablet by it y of thoprim 00:00: 00:00 mouth [place] 800-160 mg 00 :00 every 12 Medic al per tablet (twelve) Branc h hours. doxycycline 2021- No [id number] 100mg Take 1 [facility] hyclate 100 2-14 [...] Sun Branch 12/03/20 at 1615, NOEL
[facility] Rest[facility] : JOSLYN PEACOCKARI [...] 02 :00 daily. l armodafiniL 2020- No [id number] 250mg QD Take 1 [facility] (NUVIGIL) 5-17 11-[address] 250 mg 00:00: 05:59 (250 mg [facility] tablet 00 :00 total) by l mouth daily for 180 days. armodafiniL 2020- No [id number] 250mg QD Take 1 [facility] (NUVIGIL) 5-17 [...] tablet 00 each day. amitriptyli 2020- No [id number] 50mg QD Take 2 [facility] (ELAVIL) 5-14 11-[address] 25 MG 00:00: 05:59 (50 mg [facility] tablet 00 :00 total) by l mouth nightly for 180 days. amitriptyli 2020- No [id number] 50mg QD Take 2 [facility] (ELAVIL) 5-14 11-[address] 25 MG 00:00: 05:59 (50 mg [facility] tablet 00 :00 total) by l mouth nightly for 180 days. carBAMazepi 2021- No [id number] 200mg Q.5D Take 1 [facility] (TEGretoL) 00:00: 04:59 (200 mg Hos ileana 200 mg 00 :00 total) by l tablet mouth 2 (two) times a day. carBAMazepi 2021- No [id number] 200mg Q.5D Take 1 [facility] (TEGretoL) 00:00: 04:59 (200 mg Hos ileana 200 mg 00 :00 total) by l tablet mouth 2 (two) times a day. carBAMazepi 2021- No [id number] 200mg Q.5D Take 1 [facility] (TEGretoL) 00:00: 04:59 (200 mg Hos ileana 200 mg 00 :00 total) by l tablet mouth 2 (two) times a day. carBAMazepi 2021- No [id number] 200mg Q.5D Take 1 [facility] (TEGretoL) 00:00: 04:59 (200 mg Hos ileana 200 mg 00 :00 total) by l tablet mouth 2 (two) times a day. carBAMazepi 2021- No [id number] 200mg Q.5D Take 1 [facility] ne [facility] (TEGretoL) 00:00: 04:59 (200 mg Hos ileana 200 mg 00 :00 total) by l tablet mouth 2 (two) times a day. carBAMazepi 2021- No [id number] 200mg Q.5D Take 1 [facility] (TEGretoL) 00:00: 04:59 (200 mg Hos ileana 200 mg 00 :00 total) by l tablet mouth 2 (two) times a day. carBAMazepi 2021- No [id number] 200mg Q.5D Take 1 [facility] (TEGretoL) 00:00: 04:59 (200 mg Hos ileana 200 mg 00 :00 total) by l tablet mouth 2 (two) times a day. carBAMazepi 2021- No [id number] 200mg Q.5D Take 1 [facility] 06[facility] (TEGretoL) 00:00: 04:59 (200 mg Hos ileana 200 mg 00 :00 total) by l tablet mouth 2 (two) times a day. carBAMazepi No [id number] 200mg Q.5D Take 1 [facility] ne 06-22 [...] mouth ity of 50 mg 20:10: at [place] tablet 56 bedtime. Medical Branch doxepin 10 Yes 10mg Take 10 mg U nivers mg capsule 5-12 by mouth. ity of 20:09: [place] [address] Medical Branch insulin Yes 160U inject 160 Univ ers glargine 5-12 Units ity of U-300 conc 20:09: under the [place] (TOUJEO 27 skin. Medical SOLOSTAR Branch U-300 INSULIN) 300 unit/mL (1.5 mL) InPn lithium Yes 300mg Take 300 Unive rs carbonate 5-12 mg by ity of 300 mg 20:09: mouth. [place] [address] Medical Branch SERTraline Yes 50mg Take 50 mg U nivers 50 mg 5-12 by mouth. ity of tablet 20:09: [place] [address] Medical Branch celecoxib Yes 200mg Take 200 Uni vers (CELEBREX) 5-12 mg by ity of 200 mg 20:09: mouth 2 [place] capsule 27 (two) Medical times Branch daily. hydroxychlo Yes 200mg Take 200 U nivers roquine 200 5-12 mg by ity of mg tablet 20:09: mouth 2 [place] [address] (two) Medical times Branch daily. cyclobenzap Yes 10mg Take 10 mg Univers rine 10 mg 5-12 by mouth 3 ity of tablet 20:09: (three) [place] [address] times Medical daily. Branch pilocarpine Yes 7.5mg Take 7.5 U nivers 7.5 mg 5-12 mg by ity of tablet 20:09: mouth 3 [place] [address] (three) Medical times Branch daily. Armodafinil Yes 250mg Take 250 U nivers (NUVIGIL) 5-12 mg by ity of 250 mg Tab 20:09: mouth [place] [address] daily. Medical Branch cycloSPORIN Yes 1[drp] Place 1 U nivers E 5-12 Drop in ity of (RESTASIS) 20:09: both eyes [place] 0.05 % 27 every 12 Medical drops (twelve) Branch hours. aspirin 81 Yes 81mg Take 81 mg U nivers mg chewable 5-12 by mouth ity of tablet 20:09: daily. [address] Branch atorvastati Yes 10mg Take 10 mg Univers n 10 mg 5-12 by mouth. ity of tablet 20:09: [address] Branch doxepin 10 Yes 10mg Take 10 mg U nivers mg capsule 5-12 by mouth. ity of 20:09: [address] insulin Yes 160U inject 160 Univ ers glargine 5-12 Units ity of U-300 conc 20:09: under the [place] (TOUJEO skin. Medical SOLOSTAR Branch U-300 INSULIN) 300 unit/mL (1.5 mL) InPn lithium Yes 300mg Take 300 Unive rs carbonate 5-12 mg by ity of 300 mg 20:09: mouth. [place] [address] Medical Branch SERTraline Yes 50mg Take 50 mg U nivers 50 mg 5-12 by mouth. ity of tablet 20:09: [address] celecoxib Yes 200mg Take 200 Uni vers (CELEBREX) 5-12 mg by ity of 200 mg 20:09: mouth 2 [place] capsule (two) Medical times Branch daily. hydroxychlo Yes 200mg Take 200 U nivers roquine 200 5-12 mg by ity of mg tablet 20:09: mouth 2 [place] [address] (two) Medical times Branch daily. cyclobenzap Yes 10mg Take 10 mg Univers rine 10 mg 5-12 by mouth 3 ity of tablet 20:09: (three) [place] [address] times Medical daily. Branch pilocarpine Yes 7.5mg Take 7.5 U nivers 7.5 mg 5-12 mg by ity of tablet 20:09: mouth 3 [place] [address] (three) Medical times [place] daily. Armodafinil Yes 250mg Take 250 U nivers (NUVIGIL) 5-12 mg by ity of 250 mg Tab 20:09: mouth [place] [address] daily. Medical Branch cycloSPORIN Yes 1[drp] Place 1 U nivers E 5-12 Drop in ity of (RESTASIS) 20:09: both eyes [place] 0.05 % 27 every 12 Medical drops (twelve) Branch hours. aspirin 81 Yes 81mg Take 81 mg U nivers mg chewable 5-12 by mouth ity of tablet 20:09: daily. [place] [address] Medical Branch atorvastati Yes 10mg Take 10 mg Univers n 10 mg 5-12 by mouth. ity of tablet 20:09: [place] [address] Medical Branch doxepin 10 Yes 10mg Take 10 mg U nivers mg capsule 5-12 by mouth. ity of 20:09: [address] insulin Yes 160U inject 160 Univ ers glargine 5-12 Units ity of U-300 conc 20:09: under the [place] ([place] [address] skin. Medical SOLOSTAR Branch U-300 INSULIN) 300 unit/mL (1.5 mL) InPn lithium Yes 300mg Take 300 Unive rs carbonate 5-12 mg by ity of 300 mg 20:09: mouth. [place] [address] Medical Branch SERTraline Yes 50mg Take 50 mg U nivers 50 mg 5-12 by mouth. ity of tablet 20:09: [address] Branch celecoxib Yes 200mg Take 200 Uni vers (CELEBREX) 5-12 mg by ity of 200 mg 20:09: mouth 2 [place] [address] (two) Medical times [place] daily. hydroxychlo Yes 200mg Take 200 U nivers roquine 200 5-12 mg by ity of mg tablet 20:09: mouth 2 [place] [address] (two) Medical times [place] daily. cyclobenzap Yes 10mg Take 10 mg Univers rine 10 mg 5-12 by mouth 3 ity of tablet 20:09: (three) [place] [address] times Medical daily. Branch pilocarpine Yes 7.5mg Take 7.5 U nivers 7.5 mg 5-12 mg by ity of tablet 20:09: mouth 3 [place] [address] (three) Medical times [place] daily. Armodafinil Yes 250mg Take 250 U nivers (NUVIGIL) 5-12 mg by ity of 250 mg Tab 20:09: mouth [place] [address] daily. Medical Branch cycloSPORIN Yes 1[drp] Place 1 U nivers E 5-12 Drop in ity of (RESTASIS) 20:09: both eyes [place] 0.05 % 27 every 12 Medical drops (twelve) Branch hours. aspirin 81 0 Yes 81mg Take 81 mg U nivers mg chewable 5-12 by mouth ity of tablet 20:09: daily. [address] Branch atorvastati 0 Yes 10mg Take 10 mg Univers n 10 mg 5-12 by mouth. ity of tablet 20:09: [address] Branch doxepin 10 Yes 10mg Take 10 mg U nivers mg capsule 5-12 by mouth. ity of 20:09: [address] insulin Yes 160U inject 160 Univ ers glargine 5-12 Units ity of U-300 conc 20:09: under the [place] (TOUJEO 27 skin. Medical SOLOSTAR Branch U-300 INSULIN) 300 unit/mL (1.5 mL) InPn lithium Yes 300mg Take 300 Unive rs carbonate 5-12 mg by ity of 300 mg 20:09: mouth. [place] [address] Medical Branch SERTraline 0 Yes 50mg Take 50 mg U nivers 50 mg 5-12 by mouth. ity of tablet 20:09: [address] celecoxib 2020-0 Yes 200mg Take 200 Uni vers (CELEBREX) 5-12 mg by ity of 200 mg 20:09: mouth 2 [place] [address] (two) Medical times Branch daily. hydroxychlo 0 Yes 200mg Take 200 U nivers roquine 200 5-12 mg by ity of mg tablet 20:09: mouth 2 [place] [address] (two) Medical times Branch daily. cyclobenzap 2020-0 Yes 10mg Take 10 mg Univers rine 10 mg 5-12 by mouth 3 ity of tablet 20:09: (three) [place] [address] times Medical daily. Branch pilocarpine 0 Yes 7.5mg Take 7.5 U nivers 7.5 mg 5-12 mg by ity of tablet 20:09: mouth 3 [place] [address] (three) Medical times Branch daily. Armodafinil 2020-0 Yes 250mg Take 250 U nivers (NUVIGIL) 5-12 mg by ity of 250 mg Tab 20:09: mouth [place] [address] daily. Medical Branch cycloSPORIN 2021-0 Yes 1[drp] Place 1 U nivers E 5-12 Drop in ity of (RESTASIS) 20:09: both eyes [place] 0.05 % 27 every 12 Medical drops (twelve) Branch hours. aspirin 81 0 Yes 81mg Take 81 mg U nivers mg chewable 5-12 by mouth ity of tablet 20:09: daily. [address] atorvastati Yes 10mg Take 10 mg Univers n 10 mg 5-12 by mouth. ity of tablet 20:09: [address] Branch doxepin 10 Yes 10mg Take 10 mg U nivers mg capsule 5-12 by mouth. ity of 20:09: [address] insulin Yes 160U inject 160 Univ ers glargine 5-12 Units ity of U-300 conc 20:09: under the [place] ([place]JE[place] 27 skin. Medical SOLOSTAR Branch U-300 INSULIN) 300 unit/mL (1.5 mL) InPn lithium Yes 300mg Take 300 Unive rs carbonate 5-12 mg by ity of 300 mg 20:09: mouth. [place] [address] Medical Branch SERTraline Yes 50mg Take 50 mg U nivers 50 mg 5-12 by mouth. ity of tablet 20:09: [address] celecoxib Yes 200mg Take 200 Uni vers (CELEBREX) 5-12 mg by ity of 200 mg 20:09: mouth 2 [place] [address] (two) Medical times [place] daily. hydroxychlo Yes 200mg Take 200 U nivers roquine 200 5-12 mg by ity of mg tablet 20:09: mouth 2 [place] [address] (two) Medical times Branch daily. cyclobenzap Yes 10mg Take 10 mg Univers rine 10 mg 5-12 by mouth 3 ity of tablet 20:09: (three) [place] [address] times [facility] daily. Branch pilocarpine Yes 7.5mg Take 7.5 U nivers 7.5 mg 5-12 mg by ity of tablet 20:09: mouth 3 [place] [address] (three) Medical times [place] daily. Armodafinil 0 Yes 250mg Take 250 U nivers (NUVIGIL) 5-12 mg by ity of 250 mg Tab 20:09: mouth [place] [address] daily. Medical Branch cycloSPORIN Yes 1[drp] Place 1 U nivers E 5-12 Drop in ity of (RESTASIS) 20:09: both eyes [place] 0.05 % 27 every 12 Medical drops (twelve) Branch hours. aspirin 81 0 Yes 81mg Take 81 mg U nivers mg chewable 5-12 by mouth ity of tablet 20:09: daily. [address] Branch atorvastati Yes 10mg Take 10 mg Univers n 10 mg 5-12 by mouth. ity of tablet 20:09: [address] Branch doxepin 10 Yes 10mg Take 10 mg U nivers mg capsule 5-12 by mouth. ity of 20:09: [address] insulin Yes 160U inject 160 Univ ers glargine 5-12 Units ity of U-300 conc 20:09: under the [place] (TOUJEO 27 skin. Medical SOLOSTAR Branch U-300 INSULIN) 300 unit/mL (1.5 mL) InPn lithium Yes 300mg Take 300 Unive rs carbonate 5-12 mg by ity of 300 mg 20:09: mouth. [place] capsule Medical Branch SERTraline Yes 50mg Take 50 mg U nivers 50 mg 5-12 by mouth. ity of tablet 20:09: [address] celecoxib Yes 200mg Take 200 Uni vers (CELEBREX) 5-12 mg by ity of 200 mg 20:09: mouth 2 [place] capsule (two) Medical times [place] daily. hydroxychlo Yes 200mg Take 200 U nivers roquine 200 5-12 mg by ity of mg tablet 20:09: mouth 2 [place] [address] (two) Medical times [place] daily. cyclobenzap Yes 10mg Take 10 mg Univers rine 10 mg 5-12 by mouth 3 ity of tablet 20:09: (three) [place] [address] times Medical daily. Branch pilocarpine Yes 7.5mg Take 7.5 U nivers 7.5 mg 5-12 mg by ity of tablet 20:09: mouth 3 [place] [address] (three) Medical times [place] daily. Armodafinil Yes 250mg Take 250 U nivers (NUVIGIL) 5-12 mg by ity of 250 mg Tab 20:09: mouth [place] 27 daily. Medical Branch cycloSPORIN Yes 1[drp] Place 1 U nivers E 5-12 Drop in ity of (RESTASIS) 20:09: both eyes [place] 0.05 % 27 every 12 Medical drops (twelve) Branch hours. aspirin 81 Yes 81mg Take 81 mg U nivers mg chewable 5-12 by mouth ity of tablet 20:09: daily. [place] [address] Medical Branch atorvastati Yes 10mg Take 10 mg Univers n 10 mg 5-12 by mouth. ity of tablet 20:09: [place] [address] Medical Branch exenatide Yes 2mg inject 2 Univ [...] exas mL 40 Medical injection Branch Milnacipran Yes 50mg Take 50 mg Univers (SAVELLA) 5-12 by mouth ity of 50 mg 15:10: at [place] tablet 56 bedtime. Medical Branch Milnacipran Yes [...] ity of 200 mg 15:09: mouth 2 [place] capsule 27 (two) Medical times [place] daily. hydroxychlo 2020-0 Yes 200mg Take 200 U nivers roquine 200 5-12 mg by ity of mg tablet 15:09: mouth 2 [place] 27 (two) Medical times [place] daily. cyclobenzap 2020-0 Yes 10mg Take 10 mg Univers rine 10 mg 5-12 by mouth 3 ity of tablet 15:09: (three) [place] [address] times Medical daily. Branch pilocarpine Yes 7.5mg Take 7.5 U nivers 7.5 mg 5-12 mg by ity of tablet 15:09: mouth 3 [place] [address] (three) Medical times Branch daily. Armodafinil Yes 250mg Take 250 U nivers (NUVIGIL) 5-12 mg by ity of 250 mg Tab 15:09: mouth [place] [address] daily. Medical Branch cycloSPORIN Yes 1[drp] Place 1 U nivers E 5-12 Drop in ity of (RESTASIS) 15:09: both eyes [place] 0.05 % 27 every 12 Medical drops (twelve) Branch hours. aspirin 81 0 Yes 81mg Take 81 mg U nivers mg chewable 5-12 by mouth ity of tablet 15:09: daily. [address] atorvastati Yes 10mg Take 10 mg Univers n 10 mg 5-12 by mouth. ity of tablet 15:09: [address] doxepin 10 Yes 10mg Take 10 mg U nivers mg capsule 5-12 by mouth. ity of 15:09: [address] insulin Yes 160U inject 160 Univ ers glargine 5-12 Units ity of U-300 conc 15:09: under the [place] ([place] 27 skin. Medical SOLOSTAR Branch U-300 INSULIN) 300 unit/mL (1.5 mL) InPn lithium Yes 300mg Take 300 Unive rs carbonate 5-12 mg by ity of 300 mg 15:09: mouth. [place] [address] Medical Branch SERTraline Yes 50mg Take 50 mg U nivers 50 mg 5-12 by mouth. ity of tablet 15:09: [address] celecoxib 2020- Yes 200mg Take 200 Uni vers (CELEBREX) 5-12 mg by ity of 200 mg 15:09: mouth 2 [place] [address] (two) Medical times Branch daily. hydroxychlo 2020- Yes 200mg Take 200 U nivers roquine 200 5-12 mg by ity of mg tablet 15:09: mouth 2 [place] [address] (two) Medical times Branch daily. cyclobenzap Yes 10mg Take 10 mg Univers rine 10 mg 5-12 by mouth 3 ity of tablet 15:09: (three) [place] [address] times Medical daily. Branch pilocarpine Yes 7.5mg Take 7.5 U nivers 7.5 mg 5-12 mg by ity of tablet 15:09: mouth 3 [place] [address] (three) Medical times Branch daily. Armodafinil Yes 250mg Take 250 U nivers (NUVIGIL) 5-12 mg by ity of 250 mg Tab 15:09: mouth [place] [address] daily. Medical Branch cycloSPORIN Yes 1[drp] Place 1 U nivers E 5-12 Drop in ity of (RESTASIS) 15:09: both eyes [place] 0.05 % 27 every 12 Medical drops (twelve) Branch hours. aspirin 81 Yes 81mg Take 81 mg U nivers mg chewable 5-12 by mouth ity of tablet 15:09: daily. [address] atorvastati Yes 10mg Take 10 mg Univers n 10 mg 5-12 by mouth. ity of tablet 15:09: [address] doxepin 10 Yes 10mg Take 10 mg U nivers mg capsule 5-12 by mouth. ity of 15:09: [address] insulin Yes 160U inject 160 Univ ers glargine 5-12 Units ity of U-300 conc 15:09: under the [place] ([place] 27 skin. Medical SOLOSTAR Branch U-300 INSULIN) 300 unit/mL (1.5 mL) InPn lithium Yes 300mg Take 300 Unive rs carbonate 5-12 mg by ity of 300 mg 15:09: mouth. [address] Branch SERTraline Yes 50mg Take 50 mg U nivers 50 mg 5-12 by mouth. ity of tablet 15:09: [address] celecoxib Yes 200mg Take 200 Uni vers (CELEBREX) 5-12 mg by ity of 200 mg 15:09: mouth 2 [place] [address] (two) Medical times Branch daily. hydroxychlo Yes 200mg Take 200 U nivers roquine 200 5-12 mg by ity of mg tablet 15:09: mouth 2 [place] [address] (two) Medical times Branch daily. cyclobenzap Yes 10mg Take 10 mg Univers rine 10 mg 5-12 by mouth 3 ity of tablet 15:09: (three) [address] daily. Branch pilocarpine Yes 7.5mg Take 7.5 U nivers 7.5 mg 5-12 mg by ity of tablet 15:09: mouth 3 [place] [address] (three) Medical times [place] daily. Armodafinil Yes 250mg Take 250 U nivers (NUVIGIL) 5-12 mg by ity of 250 mg Tab 15:09: mouth [place] [address] daily. Medical Branch cycloSPORIN Yes 1[drp] Place 1 U nivers E 5-12 Drop in ity of (RESTASIS) 15:09: both eyes [place] 0.05 % 27 every 12 Medical drops (twelve) Branch hours. aspirin 81 Yes 81mg Take 81 mg U nivers mg chewable 5-12 by mouth ity of tablet 15:09: daily. [address] atorvastati Yes 10mg Take 10 mg Univers n 10 mg 5-12 by mouth. ity of tablet 15:09: [address] doxepin 10 Yes 10mg Take 10 mg U nivers mg capsule 5-12 by mouth. ity of 15:09: [address] insulin Yes 160U inject 160 Univ ers glargine 5-12 Units ity of U-300 conc 15:09: under the [place] ([place] 27 skin. Medical SOLOSTAR Branch U-300 INSULIN) 300 unit/mL (1.5 mL) InPn lithium Yes 300mg Take 300 Unive rs carbonate 5-12 mg by ity of 300 mg 15:09: mouth. [place] capsule [address] [place] [address] SERTraline Yes 50mg Take 50 mg U nivers 50 mg 5-12 by mouth. ity of tablet 15:09: [address] celecoxib Yes 200mg Take 200 Uni vers (CELEBREX) 5-12 mg by ity of 200 mg 15:09: mouth 2 [place] [address] (two) Medical times [place] daily. hydroxychlo Yes 200mg Take 200 U nivers roquine 200 5-12 mg by ity of mg tablet 15:09: mouth 2 [place] [address] (two) Medical times Branch daily. cyclobenzap Yes 10mg Take 10 mg Univers rine 10 mg 5-12 by mouth 3 ity of tablet 15:09: (three) [place] [address] times Medical daily. Branch pilocarpine Yes 7.5mg Take 7.5 U nivers 7.5 mg 5-12 mg by ity of tablet 15:09: mouth 3 [place] [address] (three) Medical times Branch daily. Armodafinil Yes 250mg Take 250 U nivers (NUVIGIL) 5-12 mg by ity of 250 mg Tab 15:09: mouth [place] [address] daily. Medical Branch cycloSPORIN Yes 1[drp] Place 1 U nivers E 5-12 Drop in ity of (RESTASIS) 15:09: both eyes [place] 0.05 % 27 every 12 Medical drops (twelve) Branch hours. aspirin 81 Yes 81mg Take 81 mg U nivers mg chewable 5-12 by mouth ity of tablet 15:09: daily. [address] atorvastati Yes 10mg Take 10 mg Univers n 10 mg 5-12 by mouth. ity of tablet 15:09: [address] doxepin 10 Yes 10mg Take 10 mg U nivers mg capsule 5-12 by mouth. ity of 15:09: [address] insulin Yes 160U inject 160 Univ ers glargine 5-12 Units ity of U-300 conc 15:09: under the [place] ([place] 27 skin. Medical SOLOSTAR Branch U-300 INSULIN) 300 unit/mL (1.5 mL) InPn lithium Yes 300mg Take 300 Unive rs carbonate 5-12 mg by ity of 300 mg 15:09: mouth. [address] Branch SERTraline Yes 50mg Take 50 mg U nivers 50 mg 5-12 by mouth. ity of tablet 15:09: [address] celecoxib Yes 200mg Take 200 Uni vers (CELEBREX) 5-12 mg by ity of 200 mg 15:09: mouth 2 [place] [address] (two) Medical times Branch daily. hydroxychlo Yes 200mg Take 200 U nivers roquine 200 5-12 mg by ity of mg tablet 15:09: mouth 2 [place] [address] (two) Medical times Branch daily. cyclobenzap Yes 10mg Take 10 mg Univers rine 10 mg 5-12 by mouth 3 ity of tablet 15:09: (three) [place] [address] times Medical daily. Branch pilocarpine Yes 7.5mg Take 7.5 U nivers 7.5 mg 5-12 mg by ity of tablet 15:09: mouth 3 [place] [address] (three) Medical times Branch daily. Armodafinil Yes 250mg Take 250 U nivers (NUVIGIL) 5-12 mg by ity of 250 mg Tab 15:09: mouth [place] [address] daily. Medical Branch cycloSPORIN Yes 1[drp] Place 1 U nivers E 5-12 Drop in ity of (RESTASIS) 15:09: both eyes [place] 0.05 % 27 every 12 Medical drops (twelve) Branch hours. aspirin 81 Yes 81mg Take 81 mg U nivers mg chewable 5-12 by mouth ity of tablet 15:09: daily. [address] atorvastati Yes 10mg Take 10 mg Univers n 10 mg 5-12 by mouth. ity of tablet 15:09: [address] doxepin 10 Yes 10mg Take 10 mg U nivers mg capsule 5-12 by mouth. ity of 15:09: [address] insulin Yes 160U inject 160 Univ ers glargine 5-12 Units ity of U-300 conc 15:09: under the [place] ([place] 27 skin. Medical SOLOSTAR Branch U-300 INSULIN) 300 unit/mL (1.5 mL) InPn lithium Yes 300mg Take 300 Unive rs carbonate 5-12 mg by ity of 300 mg 15:09: mouth. [address] SERTraline Yes 50mg Take 50 mg U nivers 50 mg 5-12 by mouth. ity of tablet 15:09: [address] celecoxib Yes 200mg Take 200 Uni vers (CELEBREX) 5-12 mg by ity of 200 mg 15:09: mouth 2 [place] [address] (two) Medical times Branch daily. hydroxychlo Yes 200mg Take 200 U nivers roquine 200 5-12 mg by ity of mg tablet 15:09: mouth 2 [place] [address] (two) Medical times Branch daily. cyclobenzap Yes 10mg Take 10 mg Univers rine 10 mg 5-12 by mouth 3 ity of tablet 15:09: (three) [place] [address] times Medical daily. Branch pilocarpine Yes 7.5mg Take 7.5 U nivers 7.5 mg 5-12 mg by ity of tablet 15:09: mouth 3 [place] [address] (three) Medical times [place] daily. Armodafinil Yes 250mg Take 250 U nivers (NUVIGIL) 5-12 mg by ity of 250 mg Tab 15:09: mouth [place] [address] daily. Medical Branch cycloSPORIN Yes 1[drp] Place 1 U nivers E 5-12 Drop in ity of (RESTASIS) 15:09: both eyes [place] 0.05 % 27 every 12 Medical drops (twelve) Branch hours. aspirin 81 Yes 81mg Take 81 mg U nivers mg chewable 5-12 by mouth ity of tablet 15:09: daily. [address] atorvastati Yes 10mg Take 10 mg Univers n 10 mg 5-12 by mouth. ity of tablet 15:09: [address] doxepin 10 Yes 10mg Take 10 mg U nivers mg capsule 5-12 by mouth. ity of 15:09: [address] insulin Yes 160U inject 160 Univ ers glargine 5-12 Units ity of U-300 conc 15:09: under the [place] ([place] 27 skin. Medical SOLOSTAR Branch U-300 INSULIN) 300 unit/mL (1.5 mL) InPn lithium Yes 300mg Take 300 Unive rs carbonate 5-12 mg by ity of 300 mg 15:09: mouth. [place] [address] Medical Branch SERTraline Yes 50mg Take 50 mg U nivers 50 mg 5-12 by mouth. ity of tablet 15:09: [address] celecoxib Yes 200mg Take 200 Uni vers (CELEBREX) 5-12 mg by ity of 200 mg 15:09: mouth 2 [place] [address] (two) Medical times Branch daily. hydroxychlo Yes 200mg Take 200 U nivers roquine 200 5-12 mg by ity of mg tablet 15:09: mouth 2 [place] [address] (two) Medical times Branch daily. cyclobenzap Yes 10mg Take 10 mg Univers rine 10 mg 5-12 by mouth 3 ity of tablet 15:09: (three) [place] [address] times Medical daily. Branch pilocarpine Yes 7.5mg Take 7.5 U nivers 7.5 mg 5-12 mg by ity of tablet 15:09: mouth 3 [place] [address] (three) Medical times [place] daily. Armodafinil Yes 250mg Take 250 U nivers (NUVIGIL) 5-12 mg by ity of 250 mg Tab 15:09: mouth [place] [address] daily. Medical Branch cycloSPORIN Yes 1[drp] Place 1 U nivers E 5-12 Drop in ity of (RESTASIS) 15:09: both eyes [place] 0.05 % 27 every 12 Medical drops (twelve) Branch hours. aspirin 81 Yes 81mg Take 81 mg U nivers mg chewable 5-12 by mouth ity of tablet 15:09: daily. [address] atorvastati Yes 10mg Take 10 mg Univers n 10 mg 5-12 by mouth. ity of tablet 15:09: [address] doxepin 10 Yes 10mg Take 10 mg U nivers mg capsule 5-12 by mouth. ity of 15:09: [address] insulin Yes 160U inject 160 Univ ers glargine 5-12 Units ity of U-300 conc 15:09: under the [place] (TOUJEO 27 skin. Medical SOLOSTAR Branch U-300 INSULIN) 300 unit/mL (1.5 mL) InPn lithium Yes 300mg Take 300 Unive rs carbonate 5-12 mg by ity of 300 mg 15:09: mouth. [place] [address] Medical Branch SERTraline Yes 50mg Take 50 mg U nivers 50 mg 5-12 by mouth. ity of tablet 15:09: [address] Branch celecoxib Yes 200mg Take 200 Uni vers (CELEBREX) 5-12 mg by ity of 200 mg 15:09: mouth 2 [place] [address] (two) Medical times Branch daily. hydroxychlo Yes 200mg Take 200 U nivers roquine 200 5-12 mg by ity of mg tablet 15:09: mouth 2 [place] [address] (two) Medical times Branch daily. cyclobenzap Yes 10mg Take 10 mg Univers rine 10 mg 5-12 by mouth 3 ity of tablet 15:09: (three) [address] daily[address] Branch pilocarpine Yes 7.5mg Take 7.5 U nivers 7.5 mg 5-12 mg by ity of tablet 15:09: mouth 3 [place] [address] (three) Medical times [place] daily. Armodafinil Yes 250mg Take 250 U nivers (NUVIGIL) 5-12 mg by ity of 250 mg Tab 15:09: mouth [place] [address] daily. Medical Branch cycloSPORIN Yes 1[drp] Place 1 U nivers E 5-12 Drop in ity of (RESTASIS) 15:09: both eyes [place] 0.05 % 27 every 12 Medical drops (twelve) Branch hours. aspirin 81 Yes 81mg Take 81 mg U nivers mg chewable 5-12 by mouth ity of tablet 15:09: daily. [address] atorvastati Yes 10mg Take 10 mg Univers n 10 mg 5-12 by mouth. ity of tablet 15:09: [address] doxepin 10 Yes 10mg Take 10 mg U nivers mg capsule 5-12 by mouth. ity of 15:09: [address] insulin Yes 160U inject 160 Univ ers glargine 5-12 Units ity of U-300 conc 15:09: under the [place] (TOUJEO 27 skin. Medical SOLOSTAR Branch U-300 INSULIN) 300 unit/mL (1.5 mL) InPn lithium Yes 300mg Take 300 Unive rs carbonate 5-12 mg by ity of 300 mg 15:09: mouth. [place] [address] Medical Branch SERTraline Yes 50mg Take 50 mg U nivers 50 mg 5-12 by mouth. ity of tablet 15:09: [address] celecoxib Yes 200mg Take 200 Uni vers (CELEBREX) 5-12 mg by ity of 200 mg 15:09: mouth 2 [place] [address] (two) Medical times Branch daily. hydroxychlo Yes 200mg Take 200 U nivers roquine 200 5-12 mg by ity of mg tablet 15:09: mouth 2 [place] [address] (two) Medical times [place] daily. cyclobenzap Yes 10mg Take 10 mg Univers rine 10 mg 5-12 by mouth 3 ity of tablet 15:09: (three) [address] daily[address] Branch pilocarpine Yes 7.5mg Take 7.5 U nivers 7.5 mg 5-12 mg by ity of tablet 15:09: mouth 3 [place] [address] (three) Medical times [place] daily. Armodafinil Yes 250mg Take 250 U nivers (NUVIGIL) 5-12 mg by ity of 250 mg Tab 15:09: mouth [place] [address] daily. Medical Branch cycloSPORIN Yes 1[drp] Place 1 U nivers E 5-12 Drop in ity of (RESTASIS) 15:09: both eyes [place] 0.05 % 27 every 12 Medical drops (twelve) Branch hours. aspirin 81 Yes 81mg Take 81 mg U nivers mg chewable 5-12 by mouth ity of tablet 15:09: daily. [address] atorvastati Yes 10mg Take 10 mg Univers n 10 mg 5-12 by mouth. ity of tablet 15:09: [address] doxepin 10 Yes 10mg Take 10 mg U nivers mg capsule 5-12 by mouth. ity of 15:09: [address] insulin Yes 160U inject 160 Univ ers glargine 5-12 Units ity of U-300 conc 15:09: under the [place] (TOUJEO 27 skin. Medical SOLOSTAR Branch U-300 INSULIN) 300 unit/mL (1.5 mL) InPn lithium Yes 300mg Take 300 Unive rs carbonate 5-12 mg by ity of 300 mg 15:09: mouth. [place] capsule Medical Branch SERTraline Yes 50mg Take 50 mg U nivers 50 mg 5-12 by mouth. ity of tablet 15:09: [address] Branch celecoxib Yes 200mg Take 200 Uni vers (CELEBREX) 5-12 mg by ity of 200 mg 15:09: mouth 2 [place] [address] (two) Medical times Branch daily. hydroxychlo Yes 200mg Take 200 U nivers roquine 200 5-12 mg by ity of mg tablet 15:09: mouth 2 [place] [address] (two) Medical times [place] daily. cyclobenzap Yes 10mg Take 10 mg Univers rine 10 mg 5-12 by mouth 3 ity of tablet 15:09: (three) [place] [address] times [facility] daily. Branch pilocarpine Yes 7.5mg Take 7.5 U nivers 7.5 mg 5-12 mg by ity of tablet 15:09: mouth 3 [place] [address] (three) Medical times Branch daily. Armodafinil Yes 250mg Take 250 U nivers (NUVIGIL) 5-12 mg by ity of 250 mg Tab 15:09: mouth [place] [address] daily. Medical Branch cycloSPORIN Yes 1[drp] Place 1 U nivers E 5-12 Drop in ity of (RESTASIS) 15:09: both eyes [place] 0.05 % 27 every 12 Medical drops (twelve) Branch hours. aspirin 81 Yes 81mg Take 81 mg U nivers mg chewable 5-12 by mouth ity of tablet 15:09: daily. [address] Branch atorvastati Yes 10mg Take 10 mg Univers n 10 mg 5-12 by mouth. ity of tablet 15:09: [address] Branch doxepin 10 Yes 10mg Take 10 mg U nivers mg capsule 5-12 by mouth. ity of 15:09: [address] Branch insulin Yes 160U inject 160 Univ ers glargine 5-12 Units ity of U-300 conc 15:09: under the [place] (TOUJEO 27 skin. Medical SOLOSTAR Branch U-300 INSULIN) 300 unit/mL (1.5 mL) InPn lithium Yes 300mg Take 300 Unive rs carbonate 5-12 mg by ity of 300 mg 15:09: mouth. [address] SERTraline Yes 50mg Take 50 mg U nivers 50 mg 5-12 by mouth. ity of tablet 15:09: [address] atorvastati Yes 10mg Take 10 mg Univers n 10 mg 5-12 by mouth. ity of tablet 15:09: [address] atorvastati Yes 10mg Take 10 mg Univers n 10 mg 5-12 by mouth. ity of tablet 15:09: [address] atorvastati Yes 10mg Take 10 mg Univers n 10 mg 5-12 by mouth. ity of tablet 15:09: [address] atorvastati Yes 10mg Take 10 mg Univers n 10 mg 5-12 by mouth. ity of tablet 15:09: [address] atorvastati Yes 10mg Take 10 mg Univers n 10 mg 5-12 by mouth. ity of tablet 15:09: [address] atorvastati Yes 10mg Take 10 mg Univers n 10 mg 5-12 by mouth. ity of tablet 15:09: [address] exenatide Yes 2mg inject 2 Univ [...] 40 Medical injection Branch oxybutynin 2020-0 Yes [id number] 5mg Take 1 U nivers XL 5 mg 24 5-12 tablet by ity of hr tablet 00:00: mouth [place] 00 daily. Medical Branch oxybutynin 2020-0 Yes [id number] 5mg Take 1 U nivers XL 5 mg 24 5-12 tablet by ity of hr tablet 00:00: mouth [place] 00 daily. Medical Branch oxybutynin 2020-0 Yes [id number] 5mg Take 1 U nivers XL 5 mg 24 5-12 tablet by ity of hr tablet 00:00: mouth [place] 00 daily. Medical Branch oxybutynin 2020-0 Yes [id number] 5mg Take 1 U nivers XL 5 mg 24 5-12 tablet by ity of hr tablet 00:00: mouth [place] 00 daily. Medical Branch oxybutynin 2020-0 Yes [id number] 5mg Take 1 U nivers XL 5 mg 24 5-12 tablet by ity of hr tablet 00:00: mouth [place] 00 daily. Medical Branch oxybutynin 2021-0 Yes [id number] 5mg Take 1 U nivers XL 5 mg 24 5-12 tablet by ity of hr tablet 00:00: mouth [place] 00 daily. Medical Branch oxybutynin 2020-0 Yes [id number] 5mg Take 1 U nivers XL 5 mg 24 5-12 tablet by ity of hr tablet 00:00: mouth [place] 00 daily. Medical Branch oxybutynin 2020-0 Yes [id number] 5mg Take 1 U nivers XL 5 mg 24 5-12 tablet by ity of hr tablet 00:00: mouth [place] 00 daily. Medical Branch oxybutynin 0 Yes [id number] 5mg Take 1 U nivers XL 5 mg 24 5-12 tablet by ity of hr tablet 00:00: mouth [place] 00 daily. Medical Branch oxybutynin 0 Yes [id number] 5mg Take 1 U nivers XL 5 mg 24 5-12 tablet by ity of hr tablet 00:00: mouth [place] 00 daily. Medical Branch oxybutynin 0 Yes [id number] 5mg Take 1 U nivers XL 5 mg 24 5-12 tablet by ity of hr tablet 00:00: mouth [place] 00 daily. Medical Branch oxybutynin 0 Yes [id number] 5mg Take 1 U nivers XL 5 mg 24 5-12 tablet by ity of hr tablet 00:00: mouth [place] 00 daily. Medical Branch oxybutynin 0 Yes [id number] 5mg Take 1 U nivers XL 5 mg 24 5-12 tablet by ity of hr tablet 00:00: mouth [place] 00 daily. Medical Branch oxybutynin 0 Yes [id number] 5mg Take 1 U nivers XL 5 mg 24 5-12 tablet by ity of hr tablet 00:00: mouth [place] 00 daily. Medical Branch oxybutynin 0 Yes [id number] 5mg Take 1 U nivers XL 5 mg 24 5-12 tablet by ity of hr tablet 00:00: mouth [place] 00 daily. Medical Branch oxybutynin 0 Yes [id number] 5mg Take 1 U nivers XL 5 mg 24 5-12 tablet by ity of hr tablet 00:00: mouth [place] 00 daily. Medical Branch armodafinil 2021-0 Yes 250mg QD Take 250 U T (Nuvigil) 5-12 mg by Health 250 MG 00:00: mouth 1 tablet 00 (one) time each day. aspirin 81 2020-0 Yes 81mg Chew 81 [facility] MG chewable 5-12 mg. Health tablet 00:00: 00 armodafinil 1-0 Yes 250mg QD Take 250 U T (Nuvigil) 5-12 mg by Health 250 MG 00:00: mouth 1 tablet 00 (one) time each day. aspirin 81 2020-0 Yes 81mg Chew 81 [facility] MG chewable 5-12 mg. Health tablet 00:00: 00 oxybutynin 2020-0 2- No [id number] 5mg Take 1 Univers XL 5 mg 24 06-21 tablet by ity of hr tablet 00:00: 00:00 mouth [place] 00 :00 daily. [facility] oxybutynin 2020-0 2- No [id number] 5mg Take 1 Univers XL 5 mg 24 06-21 tablet by ity of hr tablet 00:00: 00:00 mouth [place] 00 :00 daily. [facility] metformin 1-0 Yes Univers ER 500 mg 5-10 ity of 24 hr 00:00: [place] tablet 00 [facility] metformin 2021-0 Yes Univers ER 500 mg 5-10 ity of 24 hr 00:00: [place] tablet 00 [facility] metformin 2021-0 Yes Univers ER 500 mg 5-10 ity of 24 hr 00:00: [place] tablet 00 [facility] metformin 2021-0 Yes Univers ER 500 mg 5-10 ity of 24 hr 00:00: [place] tablet 00 [facility] metformin 2021-0 Yes Univers ER 500 mg 5-10 ity of 24 hr 00:00: [place] tablet 00 [facility] metformin 2021-0 Yes Univers ER 500 mg 5-10 ity of 24 hr 00:00: [place] tablet 00 [facility] metformin 2021-0 Yes Univers ER 500 mg 5-10 ity of 24 hr 00:00: [place] tablet 00 [facility] metformin 2021-0 Yes Univers ER 500 mg 5-10 ity of 24 hr 00:00: [place] tablet 00 [facility] metformin 2021-0 Yes Univers ER 500 mg 5-10 ity of 24 hr 00:00: [place] tablet 00 [facility] metformin 2021-0 Yes Univers ER 500 [...] 2022- No Univers ER 500 mg 5-10 -31 ity of 24 hr 00:00: 00:00 [place] tablet 00 :00 Medical Branch metformin 2021-0 2022- No Univers ER 500 mg 5-10 -31 ity of 24 hr 00:00: 00:00 [place] tablet 00 :00 Medical Branch gabapentin 2021-0 Yes Univers 300 mg 4-23 ity of capsule 00:00: [place] Medical Branch gabapentin 2021-0 Yes Univers 300 mg 4-23 ity of capsule 00:00: [place] [address] Medical Branch gabapentin 2021-0 Yes Univers 300 mg 4-23 ity of capsule 00:00: [place] [address] Medical Branch gabapentin 2021-0 Yes Univers 300 mg 4-23 ity of capsule 00:00: [place] 00 Medical Branch gabapentin 2021-0 Yes Univers 300 mg 4-23 ity of capsule 00:00: [place] 00 Medical Branch gabapentin 2021-0 Yes Univers 300 mg 4-23 ity of capsule 00:00: [place] [address] Medical Branch gabapentin 2021-0 Yes Univers 300 mg 4-23 ity of capsule 00:00: [place] [address] Medical Branch gabapentin 2021-0 Yes Univers 300 mg 4-23 ity of capsule 00:00: [place] [address] Medical Branch gabapentin 2021-0 Yes Univers 300 mg 4-23 ity of capsule 00:00: [place] [address] Medical Branch gabapentin 2021-0 Yes Univers 300 mg 4-23 ity of capsule 00:00: [place] [address] Medical Branch gabapentin 2021-0 Yes Univers 300 [...] 2022- No Univer s 300 mg 4-23 -31 ity of capsule 00:00: 00:00 [place] 00 :00 Medical Branch gabapentin 2021-0 2022- No Univer s 300 mg 4-23 -31 ity of capsule 00:00: 00:00 [place] 00 :00 Medical Branch lisinopriL- 2021-0 Yes Univer s hydrochloro 4-07 ity of thiazide 00:00: [place] 20-12.5 mg 00 Medical per tablet Branch lisinopriL- 2020-0 Yes Univer s hydrochloro 4-07 ity of thiazide 00:00: [place] 20-12.5 mg 00 Medical per tablet Branch lisinopriL- 2020-0 Yes Univer s hydrochloro 4-07 ity of thiazide 00:00: [place] 20-12.5 mg 00 Medical per tablet Branch lisinopriL- 2020-0 Yes Univer s hydrochloro 4-07 ity of thiazide 00:00: [place] 20-12.5 mg 00 Medical per tablet Branch lisinopriL- 2020-0 Yes Univer s hydrochloro 4-07 ity of thiazide 00:00: [place] 20-12.5 mg 00 Medical per tablet Branch lisinopriL- 2020-0 Yes Univer s hydrochloro 4-07 ity of thiazide 00:00: [place] 20-12.5 mg 00 Medical per tablet Branch lisinopriL- 2020-0 Yes Univer s hydrochloro 4-07 ity of thiazide 00:00: [place] 20-12.5 mg 00 Medical per tablet Branch lisinopriL- 2020-0 Yes Univer s hydrochloro 4-07 ity of thiazide 00:00: [place] 20-12.5 mg 00 Medical per tablet Branch [facility]:00: [place] 20-12.5 mg 00 Medical per tablet Branch lisinopriL- 0 Yes [facility] hydrochloro 4-07 ity of thiazide 00:00: [place] 20-12.5 mg 00 Medical per tablet Branch lisinopriL- Yes [facility] s hydrochloro 4-07 ity of thiazide 00:00: [place] 20-12.5 mg 00 Medical per tablet Branch lisinopriL- Yes [facility] hydrochloro 4-07 ity of thiazide 00:00: [place] 20-12.5 mg 00 Medical per tablet Branch lisinopriL- Yes [place] hydrochloro 4-07 ity of thiazide 00:00: [place] 20-12.5 mg 00 Medical per tablet Branch lisinopriL- Yes [place] [facility] hydrochloro 4-07 ity of thiazide 00:00: [place] 20-12.5 mg 00 Medical per tablet Branch lisinopriL- Yes [facility] hydrochloro 4-07 ity of thiazide 00:00: [place] 20-12.5 mg 00 Medical per tablet Branch lisinopriL- Yes [place] [facility] hydrochloro 4-07 ity of thiazide 00:00: [place] 20-12.5 mg 00 Medical per tablet Branch lisinopriL- 0 Yes [place] [facility] hydrochloro 4-07 ity of thiazide 00:00: [place] 20-12.5 mg 00 Medical per tablet Branch lisinopriL- Yes [facility] hydrochloro 4-07 ity of thiazide 00:00: [place] 20-12.5 mg 00 Medical per tablet Branch lisinopriL- Yes [facility] hydrochloro 4-07 ity of thiazide 00:00: [place] 20-12.5 mg 00 Medical per tablet Branch lisinopriL- 0 Yes [place] [facility] hydrochloro 4-07 ity of thiazide 00:00: [place] 20-12.5 mg 00 Medical per tablet Branch lisinopriL- 2021-0 Yes [facility] hydrochloro 4-07 ity of thiazide 00:00: [place] 20-12.5 mg 00 Medical per tablet Branch lisinopriL- 2020-0 Yes [facility] s hydrochloro 4-07 ity of thiazide 00:00: [place] 20-12.5 mg 00 Medical per tablet Branch thiamine 2020-0 2020- No 50mg QD Take 0.5 Meth gwen mononitrate 3-27 04-[address] , vit B1, 00:00: 04:59 (50 mg Hospi ta (B-1) 100 00 :00 total) by l mg tablet mouth daily for 30 days. cyclobenzap 2020- No 10mg [id number] Take 10 mg [facility] rine 3-26 03- [id number] by mouth [address] [facility] (FLEXERIL) 21:43: 00:00 [...] a l tablet day. PILOCARPINE Yes 7.5mg [id number] Take 7.5 [facility] HCL ORAL 3-[id number] 21:43: 3D mouth 3 [...] 19 l lithium 300 0 Yes 300mg Q.[id number] Take 300 [facility] MG capsule - [id number] mg by st 21:43: 3D mouth 3 [...] 30 (thirty) days. insulin 0 Yes 22U [id number] Inject 22 [facility] lispro 3-[id number] (HUMALOG 21:43: 3D under the [...] a l tablet day. PILOCARPINE Yes 7.5mg Q.[id number] Take 7.5 [facility] HCL ORAL 3-[id number] 16:43: 3D mouth 3 [...] 19 l lithium 300 0 Yes 300mg Q.[id number] Take 300 [facility] MG capsule 3-[id number] 16:43: 3D mouth 3 [...] 30 (thirty) days. insulin 0 Yes 22U [id number] Inject 22 [facility] lispro 3-[id number] (HUMALOG 16:43: 3D under the [...] 50mg Q.5D Take 50 mg [facility] (SAVELLA) 05-04- by mouth [address] [facility] 50 mg 21:41: [...] 60mg QD Take 60 mg [facility] zole 3-25 03-[address] (DEXILANT) 21:39: 00:00 daily. [...] S pirit one) one) 00:00: - [facility] Kenalog Kenalog 2020-0 No 40mg Common (Triamcinol (Triamcinol 9-22 S pirit one) one) 00:00: - [facility] Kenalog Kenalog 2020-0 No 40mg Common (Triamcinol (Triamcinol 9-22 S pirit one) one) 00:00: - [facility] Kenalog Kenalog 2020-0 No 40mg Common (Triamcinol (Triamcinol 9-22 S pirit one) one) 00:00: - [facility] Kenalog Kenalog 2020-0 No 40mg Common (Triamcinol (Triamcinol 9-22 S pirit one) one) 00:00: - [facility] Kenalog Kenalog 2020-0 No 40mg Common (Triamcinol (Triamcinol 9-22 S pirit one) one) 00:00: - [facility] Kenalog Kenalog 2020-0 No 40mg Common (Triamcinol (Triamcinol 9-22 S pirit one) one) 00:00: - [facility] Kenalog Kenalog 2020-0 No 40mg Common (Triamcinol (Triamcinol 9-22 S pirit one) one) 00:00: - [facility] Kenalog Kenalog 2020-0 No 40mg Common (Triamcinol (Triamcinol 9-22 S pirit one) one) 00:00: - [facility] Kenalog Kenalog 2020-0 No 40mg Common (Triamcinol (Triamcinol 9-22 S pirit one) one) 00:00: - [facility] Kenalog Kenalog 2020-0 No 40mg Common (Triamcinol (Triamcinol 9-22 S pirit one) one) 00:00: - [facility] Kenalog Kenalog 2020-0 No 40mg Common (Triamcinol (Triamcinol 9-22 S pirit one) one) 00:00: - [facility] Kenalog Kenalog 2020-0 No 40mg Common (Triamcinol (Triamcinol 9-22 S pirit one) one) 00:00: - [facility] Kenalog Kenalog 2020-0 No 40mg Common (Triamcinol (Triamcinol 9-22 S pirit one) one) 00:00: - [facility] Kenalog Kenalog 2020-0 No 40mg Common (Triamcinol (Triamcinol 9-22 S pirit one) one) 00:00: - [facility] Kenalog Kenalog 2020-0 No 40mg Common (Triamcinol (Triamcinol 9-22 S pirit one) one) 00:00: - [facility] Amoxicillin Amoxicillin 2020-0 2020- No [facility] 1 capsule Common 9-16 09- [facility] 00:00: 00:00 [facility] atorvastati 2020-0 Yes 1 tablet [facility] n (Lipitor) 8-20 Health 10 MG 00:00: tablet 00 atorvastati 2019-0 Yes 1 tablet [facility] n (Lipitor) 8-20 Health 10 MG 00:00: tablet 00 Furosemide Furosemide 2018-0 Yes [facility] 0.5 tablet [facility] 5 [facility] 00:00: - [facility] Furosemide Furosemide 2018-0 No .5{tabl QD [...] Spirit hen hen 00:00: - [facility] HYDROcodone HYDROcodone 2017-02 No 1{table BID [...] nivers azole-trime 09-09- tablet by it y of thoprim 00:00: 00:00 mouth [place] 800-160 mg 00 :00 every 12 Medic al per tablet (twelve) Branc h hours. simvastatin Yes 40mg Take 40 mg Univers 40 mg 6-15 by mouth ity of tablet 18:18: at [place] [address] bedtime. Medical Branch traZODONE Yes 100mg Take Univers 100 mg 6-15 100-200 mg ity of tablet 18:18: by mouth [place] [address] at bedtime Medical as needed Branch for Insomnia. ARIPiprazol Yes 20mg Take 20 mg Univers e (ABILIFY) 6-15 by mouth ity of 20 mg 18:18: at [place] [address] bedtime. Medical Branch suvorexant Yes 20mg Take 20 mg U nivers (BELSOMRA) 6-15 by mouth ity o f 20 mg Tab 18:18: at [place] [address] bedtime. Medical Branch prednisoLON Yes 1[drp] 1 Drop Un emanuel E acetate 1 6-15 every 2 ity o f % 18:18: (two) [place] ophthalmic 54 hours as Medic al suspension needed for Bra nch drops Itching. foLIC acid Yes 2mg Take 2 mg Un emanuel 1 mg tablet 6-15 by mouth ity of 18:18: daily. [place] [address] Medical Branch simvastatin Yes 40mg Take 40 mg Univers 40 mg 6-15 by mouth ity of tablet 18:18: at [place] [address] bedtime. Medical Branch traZODONE Yes 100mg Take Univers 100 mg 6-15 100-200 mg ity of tablet 18:18: by mouth [place] [address] at bedtime Medical as needed Branch for Insomnia. ARIPiprazol Yes 20mg Take 20 mg Univers e (ABILIFY) 6-15 by mouth ity of 20 mg 18:18: at [place] tablet 54 bedtime. Medical Branch suvorexant [id number] Yes 20mg Take 20 mg U nivers (BELSOMRA) 6-15 by mouth ity o f 20 mg Tab 18:18: at [place] [address] bedtime. Medical Branch prednisoLON 2017-0 Yes 1[drp] 1 Drop Un emanuel E acetate 1 6-15 every 2 ity o f % 18:18: (two) [place] ophthalmic 54 hours as Medic al suspension needed for Bra nch drops Itching. foLIC acid 20170 Yes 2mg Take 2 mg Un emanuel 1 mg tablet 6-15 by mouth ity of 18:18: daily. [place] [address] Medical Branch simvastatin 20170 Yes 40mg Take 40 mg Univers 40 mg 6-15 by mouth ity of tablet 18:18: at [place] [address] bedtime. Medical Branch traZODONE 20170 Yes 100mg Take Univers 100 mg 6-15 100-200 mg ity of tablet 18:18: by mouth [place] [address] at bedtime Medical as needed Branch for Insomnia. ARIPiprazol Yes 20mg Take 20 mg Univers e (ABILIFY) 6-15 by mouth ity of 20 mg 18:18: at [place] [address] bedtime. Medical Branch suvorexant 0 Yes 20mg Take 20 mg U nivers (BELSOMRA) 6-15 by mouth ity o f 20 mg Tab 18:18: at [place] [address] bedtime. Medical Branch prednisoLON 20170 Yes 1[drp] 1 Drop Un emanuel E acetate 1 6-15 every 2 ity o f % 18:18: (two) [place] ophthalmic 54 hours as Medic al suspension needed for Bra nch drops Itching. foLIC acid 20170 Yes 2mg Take 2 mg Un emanuel 1 mg tablet 6-15 by mouth ity of 18:18: daily. [place] [address] Medical Branch simvastatin 2017-0 Yes 40mg Take 40 mg Univers 40 mg 6-15 by mouth ity of tablet 18:18: at [place] [address] bedtime. Medical Branch traZODONE 20170 Yes 100mg Take Univers 100 mg 6-15 100-200 mg ity of tablet 18:18: by mouth [place] [address] at bedtime Medical as needed Branch for Insomnia. ARIPiprazol 20170 Yes 20mg Take 20 mg Univers e (ABILIFY) 6-15 by mouth ity of 20 mg 18:18: at [place] [address] bedtime. Medical Branch suvorexant 2017-0 Yes 20mg Take 20 mg U nivers (BELSOMRA) 6-15 by mouth ity o f 20 mg Tab 18:18: at [place] [address] bedtime. Medical Branch prednisoLON 2017-0 Yes 1[drp] 1 Drop Un emanuel E acetate 1 6-15 every 2 ity o f % 18:18: (two) [place] ophthalmic 54 hours as Medic al suspension needed for Bra nch drops Itching. foLIC acid 20170 Yes 2mg Take 2 mg Un emanuel 1 mg tablet 6-15 by mouth ity of 18:18: daily. [place] [address] Medical Branch simvastatin 2017-0 Yes 40mg Take 40 mg Univers 40 mg 6-15 by mouth ity of tablet 18:18: at [place] [address] bedtime. Medical Branch traZODONE 2017 Yes 100mg Take Univers 100 mg 6-15 100-200 mg ity of tablet 18:18: by mouth [place] [address] at bedtime Medical as needed Branch for Insomnia. ARIPiprazol 2017 Yes 20mg Take 20 mg Univers e (ABILIFY) 6-15 by mouth ity of 20 mg 18:18: at [place] [address] bedtime. Medical Branch suvorexant 0 Yes 20mg Take 20 mg U nivers (BELSOMRA) 6-15 by mouth ity o f 20 mg Tab 18:18: at [place] [address] bedtime. Medical Branch prednisoLON 20170 Yes 1[drp] 1 Drop Un emanuel E acetate 1 6-15 every 2 ity o f % 18:18: (two) [place] ophthalmic 54 hours as Medic al suspension needed for Bra nch drops Itching. foLIC acid 20170 Yes 2mg Take 2 mg Un emanuel 1 mg tablet 6-15 by mouth ity of 18:18: daily. [place] [address] Medical Branch simvastatin 2017-0 Yes 40mg Take 40 mg Univers 40 mg 6-15 by mouth ity of tablet 18:18: at [place] [address] bedtime. Medical Branch traZODONE 20170 Yes 100mg Take Univers 100 mg 6-15 100-200 mg ity of tablet 18:18: by mouth [place] [address] at bedtime Medical as needed Branch for Insomnia. ARIPiprazol 2017-0 Yes 20mg Take 20 mg Univers e (ABILIFY) 6-15 by mouth ity of 20 mg 18:18: at [facility] 54 bedtime. Medical Branch suvorexant 2017-0 Yes 20mg Take 20 mg U nivers (BELSOMRA) 6-15 by mouth ity o f 20 mg Tab 18:18: at [place] [address] bedtime. [facility] Branch prednisoLON 20170 Yes 1[drp] 1 Drop Un emanuel E acetate 1 6-15 every 2 ity o f % 18:18: (two) [place] [facility] 54 hours as Medic al suspension needed for Bra nch drops Itching. foLIC acid 2017 Yes 2mg Take 2 mg Un emanuel 1 mg tablet 6-15 by mouth ity of 18:18: daily. [place] [address] [facility] Branch foLIC acid 20170 Yes 2mg Take 2 mg Un emanuel 1 mg tablet 6-15 by mouth ity of 13:18: daily. [place] [address] [facility] Branch simvastatin 2017 Yes 40mg Take 40 mg [facility] 40 mg 6-15 by mouth ity of tablet 13:18: at [place] [address] bedtime. Medical Branch traZODONE 2017 Yes 100mg Take [facility] 100 mg 6-15 100-200 mg ity of tablet 13:18: by mouth [place] [address] at bedtime Medical as needed Branch for Insomnia. ARIPiprazol 20170 Yes 20mg Take 20 mg Univers e (ABILIFY) 6-15 by mouth ity of 20 mg 13:18: at [facility] 54 bedtime. Medical Branch suvorexant Yes 20mg Take 20 mg U nivers (BELSOMRA) 6-15 by mouth ity o f 20 mg Tab 13:18: at [place] [address] bedtime. Medical Branch prednisoLON 2017-0 Yes 1[drp] 1 Drop Un emanuel E acetate 1 6-15 every 2 ity o f % 13:18: (two) [place] [facility] 54 hours as Medic al suspension needed for Bra nch drops Itching. foLIC acid 0 Yes 2mg Take 2 mg Un emanuel 1 mg tablet 6-15 by mouth ity of 13:18: daily. [place] [address] [facility] Branch simvastatin 2017-0 Yes 40mg Take 40 mg Univers 40 mg 6-15 by mouth ity of tablet 13:18: at [place] [address] bedtime. Medical Branch traZODONE 20170 Yes 100mg Take Univers 100 mg 6-15 100-200 mg ity of tablet 13:18: by mouth [place] [address] at bedtime Medical as needed Branch for Insomnia. ARIPiprazol 2017-0 Yes 20mg Take 20 mg Univers e (ABILIFY) 6-15 by mouth ity of 20 mg 13:18: at [facility] 54 bedtime. Medical Branch suvorexant 2017-0 Yes 20mg Take 20 mg U nivers (BELSOMRA) 6-15 by mouth ity o f 20 mg Tab 13:18: at [place] [address] bedtime. Medical Branch prednisoLON 2017-0 Yes 1[drp] 1 Drop Un emanuel E acetate 1 6-15 every 2 ity o f % 13:18: (two) [place] [facility] 54 hours as Medic al suspension needed for Bra nch drops Itching. foLIC acid 2017-0 Yes 2mg Take 2 mg Un emanuel 1 mg tablet 6-15 by mouth ity of 13:18: daily. [place] [address] Medical Branch simvastatin 2017-0 Yes 40mg Take 40 mg [facility] 40 mg 6-15 by mouth ity of tablet 13:18: at [place] [address] bedtime. Medical Branch traZODONE 20170 Yes 100mg Take [facility] 100 mg 6-15 100-200 mg ity of tablet 13:18: by mouth [place] [address] at bedtime Medical as needed Branch for Insomnia. ARIPiprazol 20170 Yes 20mg Take 20 mg Univers e (ABILIFY) 6-15 by mouth ity of 20 mg 13:18: at [facility] 54 bedtime. Medical Branch suvorexant 2017-0 Yes 20mg Take 20 mg U nivers (BELSOMRA) 6-15 by mouth ity o f 20 mg Tab 13:18: at [place] [address] bedtime. Medical Branch prednisoLON 2017-0 Yes 1[drp] 1 Drop Un emanuel E acetate 1 6-15 every 2 ity o f % 13:18: (two) [place] [facility] 54 hours as Medic al suspension needed for Bra nch drops Itching. foLIC acid 2017-0 Yes 2mg Take 2 mg Un emanuel 1 mg tablet 6-15 by mouth ity of 13:18: daily. [place] [address] Medical Branch simvastatin 2017-0 Yes 40mg Take 40 mg [facility] 40 mg 6-15 by mouth ity of tablet 13:18: at [place] [address] bedtime. Medical Branch traZODONE 2017-0 Yes 100mg Take Univers 100 mg 6-15 100-200 mg ity of tablet 13:18: by mouth [place] [address] at bedtime Medical as needed Branch for Insomnia. ARIPiprazol 2017-0 Yes 20mg Take 20 mg Univers e (ABILIFY) 6-15 by mouth ity of 20 mg 13:18: at [place] [address] bedtime. Medical Branch suvorexant 2017-0 Yes 20mg Take 20 mg U nivers (BELSOMRA) 6-15 by mouth ity o f 20 mg Tab 13:18: at [place] [address] bedtime. Medical Branch prednisoLON 2017-0 Yes 1[drp] 1 Drop Un emanuel E acetate 1 6-15 every 2 ity o f % 13:18: (two) [place] [facility] 54 hours as Medic al suspension needed for Bra nch drops Itching. foLIC acid 2017-0 Yes 2mg Take 2 mg Un emanuel 1 mg tablet 6-15 by mouth ity of 13:18: daily. [place] [address] Medical Branch simvastatin 2017-0 Yes 40mg Take 40 mg [facility] 40 mg 6-15 by mouth ity of tablet 13:18: at [place] [address] bedtime. Medical Branch traZODONE 2017-0 Yes 100mg Take Univers 100 mg 6-15 100-200 mg ity of tablet 13:18: by mouth [place] [address] at bedtime Medical as needed Branch for Insomnia. ARIPiprazol 2017-0 Yes 20mg Take 20 mg Univers e (ABILIFY) 6-15 by mouth ity of 20 mg 13:18: at [place] [address] bedtime. Medical Branch suvorexant 2017-0 Yes 20mg Take 20 mg U nivers (BELSOMRA) 6-15 by mouth ity o f 20 mg Tab 13:18: at [place] [address] bedtime. Medical Branch prednisoLON 2017-0 Yes 1[drp] 1 Drop Un emanuel E acetate 1 6-15 every 2 ity o f % 13:18: (two) [place] [facility] 54 hours as Medic al suspension needed for Bra nch drops Itching. foLIC acid 2017-0 Yes 2mg Take 2 mg Un emanuel 1 mg tablet 6-15 by mouth ity of 13:18: daily. [place] [address] Medical Branch simvastatin 2017-0 Yes 40mg Take 40 mg Univers 40 mg 6-15 by mouth ity of tablet 13:18: at [place] [address] bedtime. Medical Branch traZODONE 2017-0 Yes 100mg Take Univers 100 mg 6-15 100-200 mg ity of tablet 13:18: by mouth [place] [address] at bedtime Medical as needed Branch for Insomnia. ARIPiprazol 2017-0 Yes 20mg Take 20 mg Univers e (ABILIFY) 6-15 by mouth ity of 20 mg 13:18: at [place] [address] bedtime. Medical Branch suvorexant 2017-0 Yes 20mg Take 20 mg U nivers (BELSOMRA) 6-15 by mouth ity o f 20 mg Tab 13:18: at [place] [address] bedtime. Medical Branch prednisoLON 2017-0 Yes 1[drp] 1 Drop Un emanuel E acetate 1 6-15 every 2 ity o f % 13:18: (two) [place] [facility] 54 hours as Medic al suspension needed for Bra nch drops Itching. foLIC acid 20170 Yes 2mg Take 2 mg Un emanuel 1 mg tablet 6-15 by mouth ity of 13:18: daily. [place] [address] Medical Branch simvastatin 2017-0 Yes 40mg Take 40 mg Univers 40 mg 6-15 by mouth ity of tablet 13:18: at [place] [address] bedtime. Medical Branch traZODONE 2017-0 Yes 100mg Take Univers 100 mg 6-15 100-200 mg ity of tablet 13:18: by mouth [place] [address] at bedtime Medical as needed Branch for Insomnia. ARIPiprazol 20170 Yes 20mg Take 20 mg Univers e (ABILIFY) 6-15 by mouth ity of 20 mg 13:18: at [place] [address] bedtime. Medical Branch suvorexant 20170 Yes 20mg Take 20 mg U nivers (BELSOMRA) 6-15 by mouth ity o f 20 mg Tab 13:18: at [place] [address] bedtime. Medical Branch prednisoLON 2017-0 Yes 1[drp] 1 Drop Un emanuel E acetate 1 6-15 every 2 ity o f % 13:18: (two) [place] [facility] 54 hours as Medic al suspension needed for Bra nch drops Itching. foLIC acid 2017-0 Yes 2mg Take 2 mg Un emanuel 1 mg tablet 6-15 by mouth ity of 13:18: daily. [place] [address] Medical Branch simvastatin 2017-0 Yes 40mg Take 40 mg Univers 40 mg 6-15 by mouth ity of tablet 13:18: at [place] [address] bedtime. Medical Branch traZODONE 2017-0 Yes 100mg Take Univers 100 mg 6-15 100-200 mg ity of tablet 13:18: by mouth [place] [address] at bedtime Medical as needed Branch for Insomnia. ARIPiprazol 2017-0 Yes 20mg Take 20 mg Univers e (ABILIFY) 6-15 by mouth ity of 20 mg 13:18: at [place] [address] bedtime. Medical Branch suvorexant 2017-0 Yes 20mg Take 20 mg U nivers (BELSOMRA) 6-15 by mouth ity o f 20 mg Tab 13:18: at [place] [address] bedtime. Medical Branch prednisoLON 2017-0 Yes 1[drp] 1 Drop Un emanuel E acetate 1 6-15 every 2 ity o f % 13:18: (two) [place] [facility] 54 hours as Medic al suspension needed for Bra nch drops Itching. foLIC acid 2017-0 Yes 2mg Take 2 mg Un emanuel 1 mg tablet 6-15 by mouth ity of 13:18: daily. [place] [address] Medical Branch simvastatin 2017-0 Yes 40mg Take 40 mg Univers 40 mg 6-15 by mouth ity of tablet 13:18: at [place] [address] bedtime. Medical Branch traZODONE 2017-0 Yes 100mg Take Univers 100 mg 6-15 100-200 mg ity of tablet 13:18: by mouth [place] [address] at bedtime Medical as needed Branch for Insomnia. ARIPiprazol 20170 Yes 20mg Take 20 mg Univers e (ABILIFY) 6-15 by mouth ity of 20 mg 13:18: at [place] [address] bedtime. Medical Branch suvorexant 2017-0 Yes 20mg Take 20 mg U nivers (BELSOMRA) 6-15 by mouth ity o f 20 mg Tab 13:18: at [place] [address] bedtime. Medical Branch prednisoLON 2017-0 Yes 1[drp] 1 Drop Un emanuel E acetate 1 6-15 every 2 ity o f % 13:18: (two) [place] [facility] 54 hours as Medic al suspension needed for Bra nch drops Itching. foLIC acid 2017-0 Yes 2mg Take 2 mg Un emanuel 1 mg tablet 6-15 by mouth ity of 13:18: daily. [place] [address] Medical Branch simvastatin 2017-0 Yes 40mg Take 40 mg Univers 40 mg 6-15 by mouth ity of tablet 13:18: at [place] 54 bedtime. Medical Branch traZODONE Yes 100mg Take Univers 100 mg 6-15 100-200 mg ity of tablet 13:18: by mouth [place] 54 at bedtime Medical as needed Branch for Insomnia. ARIPiprazol Yes 20mg Take 20 mg Univers e (ABILIFY) 6-15 by mouth ity of 20 mg 13:18: at [place] tablet 54 bedtime. Medical Branch suvorexant Yes 20mg Take 20 mg U nivers (BELSOMRA) 6-15 by mouth ity o f 20 mg Tab 13:18: at [place] 54 bedtime. Medical Branch prednisoLON Yes 1[drp] 1 Drop Un emanuel E acetate 1 6-15 every 2 ity o f % 13:18: (two) [place] [facility] 54 hours as Medic al suspension needed for Bra nch drops Itching. Zetia No Notes: Memoria 08-10 (Same as: l 14:00: Barbara) [place] Dexilant 0 No 60 mg, Memoria 08-10 Route: PO, l 14:00: Drug form: [place] 00 DRC, Daily, Dosing Weight 134.5, kg, Start date: 08/11/15 9:00:00 CDT, Duration: 30 day, Stop date: 09/09/15 9:00:00 CDT Nuvigil 2015-0 No 250 mg, Memoria 08-10 Route: PO, l 14:00: Drug form: [place] 00 TAB, Daily, Dosing Weight 134.5, kg, Start date: 08/11/15 9:00:00 CDT, Duration: 30 day, Stop date: 09/09/15 9:00:00 CDT Abilify 2015-0 No 20 mg, Memoria 08-10 Route: PO, l 14:00: Drug form: [place] 00 TAB, Daily, Dosing Weight 134.5, kg, Start date: 08/11/15 9:00:00 CDT, Duration: 30 day, Stop date: 09/09/15 9:00:00 CDT Deplin 2015-0 No 15 mg, Memoria 08-10 Route: PO, l 14:00: Drug form: [place] 00 CAP, Daily, Dosing Weight 134.5, kg, Start date: 08/11/15 9:00:00 CDT, Duration: 30 day, Stop date: 09/09/15 9:00:00 CDT Hydrochloro 2016-0 No 1 tab, Alonzo summer thiazide 7- Route: PO, l 12.5 MG / 14:00: Drug Form: Mikel salgado Lisinopril 00 TAB, 10 MG Oral Dosing Tablet Weight 134.5, kg, Daily, Start date: 08/11/15 9:00:00 CDT, Duration: 30 day, Stop date: 09/09/15 9:00:00 CDT Zetia 2016-0 No Notes: Memoria 08-10 (Same as: l 14:00: Zetia) [place] Dexilant 2016-0 No 60 mg, Memoria 7- Route: PO, l 14:00: Drug form: [place] 00 DRC, Daily, Dosing Weight 134.5, kg, Start date: 08/11/15 9:00:00 CDT, Duration: 30 day, Stop date: 09/09/15 9:00:00 CDT Nuvigil 2016-0 No 250 mg, Memoria 7- Route: PO, l 14:00: Drug form: [place] 00 TAB, Daily, Dosing Weight 134.5, kg, Start date: 08/11/15 9:00:00 CDT, Duration: 30 day, Stop date: 09/09/15 9:00:00 CDT Abilify 2016-0 No 20 mg, Memoria 7- Route: PO, l 14:00: Drug form: [place] 00 TAB, Daily, Dosing Weight 134.5, kg, Start date: 08/11/15 9:00:00 CDT, Duration: 30 day, Stop date: 09/09/15 9:00:00 CDT Deplin 2016-0 No 15 mg, Memoria 7- Route: PO, l 14:00: Drug form: [place] 00 CAP, Daily, Dosing Weight 134.5, kg, Start date: 08/11/15 9:00:00 CDT, Duration: 30 day, Stop date: 09/09/15 9:00:00 CDT Hydrochloro 2016-0 No 1 tab, Alonzo summer thiazide 7-01 Route: PO, l 12.5 MG / 14:00: [...] 08-10 Route: PO, l 14:00: Drug form: [place] 00 TAB, Daily, Dosing Weight 134.5, kg, Start date: 08/11/15 9:00:00 CDT, Duration: 30 day, Stop date: 09/09/15 9:00:00 CDT Deplin 2015-0 No 15 mg, Memoria 08-10 Route: PO, l 14:00: Drug form: [place] 00 CAP, Daily, Dosing Weight 134.5, kg, [...] 08-10 Route: PO, l 14:00: Drug form: [place] 00 DRC, Daily, Dosing Weight 134.5, kg, Start date: 08/11/15 9:00:00 CDT, Duration: 30 day, Stop date: 09/09/15 9:00:00 CDT Nuvigil 2015-0 No 250 mg, Memoria 08-10 Route: PO, l 14:00: Drug form: [place] 00 TAB, Daily, Dosing Weight 134.5, kg, [...] 08-10 Route: PO, l 14:00: Drug form: [place] 00 TAB, Daily, Dosing Weight 134.5, kg, Start date: 08/11/15 9:00:00 CDT, Duration: 30 day, Stop date: 09/09/15 9:00:00 CDT Abilify 2015-0 No 20 mg, Memoria 08-10 Route: PO, l 14:00: Drug form: [place] 00 TAB, Daily, Dosing Weight 134.5, kg, [...] 08-10 Route: PO, l 14:00: Drug form: [place] 00 TAB, Daily, Dosing Weight 134.5, kg, [...] 08-10 Route: PO, l 14:00: Drug form: [place] 00 DRC, Daily, Dosing Weight 134.5, kg, [...] 08-10 Route: PO, l 14:00: Drug form: [place] 00 TAB, Daily, Dosing Weight 134.5, kg, Start date: 08/11/15 9:00:00 CDT, Duration: 30 day, Stop date: 09/09/15 9:00:00 CDT Deplin 2016-0 No 15 mg, Memoria 08-10 Route: PO, l 14:00: Drug form: [place] 00 CAP, Daily, Dosing Weight 134.5, kg, [...] as: l 14:00: Zetia) [place] 00 Dexilant 2016-0 No 60 mg, Memoria - Route: PO, l 14:00: Drug form: [place] 00 DRC, Daily, Dosing Weight 134.5, kg, Start date: 08/11/15 9:00:00 CDT, Duration: 30 day, Stop date: 09/09/15 9:00:00 CDT Nuvigil 2016-0 No 250 mg, Memoria 7- Route: PO, l 14:00: Drug form: [place] 00 TAB, Daily, Dosing Weight 134.5, kg, Start date: 08/11/15 9:00:00 CDT, Duration: 30 day, Stop date: 09/09/15 9:00:00 CDT Abilify 2016-0 No 20 mg, Memoria 7 Route: PO, l 14:00: Drug form: [place] 00 TAB, Daily, Dosing Weight 134.5, kg, Start date: 08/11/15 9:00:00 CDT, Duration: 30 day, Stop date: 09/09/15 9:00:00 CDT Deplin 2016-0 No 15 mg, Memoria 08-10 Route: PO, l 14:00: Drug form: [place] 00 CAP, Daily, Dosing Weight 134.5, kg, [...] 08-10 Route: PO, l 14:00: Drug form: [place] 00 TAB, Daily, Dosing Weight 134.5, kg, Start date: 08/11/15 9:00:00 CDT, Duration: 30 day, Stop date: 09/09/15 9:00:00 CDT Abilify 2015-0 No 20 mg, Memoria 7- Route: PO, l 14:00: Drug form: [place] 00 TAB, Daily, Dosing Weight 134.5, kg, Start date: 08/11/15 9:00:00 CDT, Duration: 30 day, Stop date: 09/09/15 9:00:00 CDT Deplin 2016-0 No 15 mg, Memoria 08-10 Route: PO, l 14:00: Drug form: [place] 00 CAP, Daily, Dosing Weight 134.5, kg, [...] 08-10 Route: PO, l 14:00: Drug form: [place] 00 DRC, Daily, Dosing Weight 134.5, kg, Start date: 08/11/15 9:00:00 CDT, Duration: 30 day, Stop date: 09/09/15 9:00:00 CDT Nuvigil 2015-0 No 250 mg, Memoria 08-10 Route: PO, l 14:00: Drug form: [place] 00 TAB, Daily, Dosing Weight 134.5, kg, [...] 08-10 Route: PO, l 14:00: Drug form: [place] 00 CAP, Daily, Dosing Weight 134.5, kg, [...] Memoria 08-10 (Same as: l 14:00: Zetia) [place] 00 Dexilant 2015-0 No 60 mg, Memoria [...] 08-10 Route: PO, l 14:00: Drug form: [place] 00 TAB, Daily, Dosing Weight 134.5, kg, Start date: 08/11/15 9:00:00 CDT, Duration: 30 day, Stop date: 09/09/15 9:00:00 CDT Deplin 2015-0 No 15 mg, Memoria 08-10 Route: PO, l 14:00: Drug form: [place] 00 CAP, Daily, Dosing Weight 134.5, kg, Start date: 08/11/15 9:00:00 CDT, Duration: 30 day, Stop date: 09/09/15 9:00:00 CDT Hydrochloro 2016-0 No 1 tab, Alozno summer thiazide 08-10 Route: PO, l 12.5 MG / 14:00: Drug Form: Mikel carolarchana Lisinopril 00 TAB, 10 MG Oral Dosing Tablet Weight 134.5, kg, Daily, Start date: 08/11/15 9:00:00 CDT, Duration: 30 day, Stop date: 09/09/15 9:00:00 CDT Savella 0 No 50 mg, Memoria 08-09 Route: PO, l 22:00: Drug form: [place] 00 TAB, BID, Dosing Weight 134.5, kg, Start date: 08/10/15 17:00:00 CDT Savella 2016-0 No 50 mg, Memoria 6-30 Route: PO, l 22:00: Drug form: [place] 00 TAB, BID, Dosing Weight 134.5, kg, Start date: 08/10/15 17:00:00 CDT Savella 2016-0 No 50 mg, Memoria 6-30 Route: PO, l 22:00: Drug form: [place] 00 TAB, BID, Dosing Weight 134.5, kg, Start date: 08/10/15 17:00:00 CDT Savella 2016-0 No 50 mg, Memoria 6-30 Route: PO, l 22:00: Drug form: [place] 00 TAB, BID, Dosing Weight 134.5, kg, Start date: 08/10/15 17:00:00 CDT Savella 2016-0 No 50 mg, Memoria 6-30 Route: PO, l 22:00: Drug form: [place] 00 TAB, BID, Dosing Weight 134.5, kg, Start date: 08/10/15 17:00:00 CDT Savella 2016-0 No 50 mg, [facility]oria 6-30 Route: PO, l 22:00: Drug form: [place] 00 TAB, BID, Dosing Weight 134.5, kg, Start date: 08/10/15 17:00:00 CDT Savella 2016-0 No 50 mg, Memoria 6-30 Route: PO, l 22:00: Drug form: [place] 00 TAB, BID, Dosing Weight 134.5, kg, Start date: 08/10/15 17:00:00 CDT Savella 2016-0 No 50 mg, Memoria 6-30 Route: PO, l 22:00: Drug form: [place] 00 TAB, BID, Dosing Weight 134.5, kg, Start date: 08/10/15 17:00:00 CDT Savella 2016-0 No 50 mg, Memoria 6-30 Route: PO, l 22:00: Drug form: [place] 00 TAB, BID, Dosing Weight 134.5, kg, [...] 6-30 Route: PO, l 22:00: Drug form: [place] 00 TAB, BID, Dosing Weight 134.5, kg, Start date: 08/10/15 17:00:00 CDT Ketorolac 2016-0 No 4 days Memor ia 6-30 l 17:00: MEDICATION [place] WASTE Product Size: 30 mg Product Wasted: _15__ mg Ketorolac 2016-0 No 4 days Memor ia 6-30 l 17:00: MEDICATION [place] WASTE Product Size: 30 mg Product Wasted: _15__ mg Ketorolac 2016-0 No 4 days Memor ia 6-30 l 17:00: MEDICATION [place] WASTE Product Size: 30 mg Product Wasted: _15__ mg Ketorolac 2016-0 No 4 days Memor ia 6-30 l 17:00: MEDICATION [place] WASTE Product Size: 30 mg Product Wasted: _15__ mg Ketorolac 2016-0 No 4 days Memor ia 6-30 l 17:00: MEDICATION [place] WASTE Product Size: 30 mg Product Wasted: _15__ mg Ketorolac 2016-0 No 4 days Memor ia 6-30 l 17:00: MEDICATION [place] WASTE Product Size: 30 mg Product Wasted: _15__ mg Ketorolac 2016-0 No 4 days Memor ia 6-30 l 17:00: MEDICATION [place] WASTE Product Size: 30 mg Product Wasted: _15__ mg Ketorolac 2016-0 No 4 days Memor ia 6-30 l 17:00: MEDICATION [place] WASTE Product Size: 30 mg Product Wasted: _15__ mg Ketorolac 2016-0 No 4 days Memor ia 6-30 l 17:00: MEDICATION WASTE Product Size: 30 mg Product Wasted: _15__ mg Ketorolac No 4 days Memor ia 08-09 l 17:00: MEDICATION [place] 00 WASTE Product Size: 30 mg Product Wasted: _15__ mg Ketorolac No 4 days Memor ia 08-09 l 17:00: MEDICATION [place] 00 WASTE Product Size: 30 mg Product Wasted: _15__ mg Ketorolac No 4 days Memor ia 08-09 l 17:00: MEDICATION WASTE Product Size: 30 [...] as: l / 16:29: Duoneb) Ipratropium 00 [place] 0.167 MG/ML Inhalant Solution [DuoNeb] celecoxib Yes Notes: Memori a 6-30 NSAID. l 16:29: Please [place] 00 check indication . Not for seizure. (Same As: CeleBREX) 72 HR Yes Notes: Memoria Scopolamine -30 Change l 0.0139 16:29: patch [place] MG/HR 00 every 72 Transdermal hours Patch [...] Memoria l 6-30 RT l 16:29: DOCUMENTAT [place] 00 ION (Same as:Xopenex ) Non-Formul george [...] 6-30 (Same as: l / 16:29: Duoneb) [place] Ipratropium 00 [place] 0.167 MG/ML Inhalant Solution [DuoNeb] celecoxib Yes Notes: Memori a 6-30 NSAID. l 16:29: Please [place] 00 check indication . Not for seizure. [...] as: l / 16:29: Duoneb) Ipratropium 00 [place] 0.167 MG/ML Inhalant Solution [DuoNeb] celecoxib Yes Notes: Memori a 6-30 NSAID. l 16:29: Please [place] 00 check indication . Not for seizure. [...] 6-30 Rate: 125 l 0.0014 16:29: ml/hr, [place] MEQ/ML / 00 Infuse Potassium over: 8 [...] l / 16:29: Duoneb) [place] Ipratropium 00 [place] 0.167 MG/ML Inhalant Solution [DuoNeb] celecoxib Yes Notes: Memori a 6-30 NSAID. l 16:29: Please [place] 00 check indication . Not for seizure. [...] ia 6-30 (Same as: l 16:29: Romazicon) [place] 00 Calcium No 1,000 mL, Memor ia [...] as:MORPhin e Sulfate) Fentanyl No Notes: [facility]oria 08-09 (Same as: l 16:29: Sublimaze) Preservati ve free. Oxycodone No Notes: Memori a 08-09 (Same as: l 16:29: Roxicodone ) Hydromorpho [...] ne 30 Same as: l 16:29: Erik-Syneph [place] 00 rine Albuterol No Notes: Memori a 0.833 MG/ML -30 (Same as: l / 16:29: Duoneb) Ipratropium 00 [place] 0.167 MG/ML Inhalant Solution [DuoNeb] celecoxib Yes Notes: Memori a 6-30 NSAID. l 16:29: Please [place] 00 check indication . Not for seizure. [...] a 6-30 (Same as: l 16:29: ePHEDrine [place] Sulfate) Flumazenil No Notes: Memor ia 6-30 (Same as: l 16:29: Romazicon) [place] 00 Calcium No 1,000 mL, Memor ia [...] Notes: Memoria 6-30 (Same l 16:29: as:MORPhin [place] 00 e Sulfate) Fentanyl No Notes: Memoria [...] Roll in l Human 16:29: palms of [place] 00 hands gently; Do not shake vigorously [...] summer ne 30 Concentrat l 16:29: ion: [place] 00 4mg/ml Ondansetron No Notes: Alonzo summer 30 [...] mg Glycopyrrol No Notes: Alonzo summer ate 30 (Same as: l 16:29: Robinul) [place] 00 Phenylephri No Notes: Alonzo summer ne 30 Same as: l 16:29: Erik-Syneph [place] 00 rine Albuterol No Notes: Memori a 0.833 MG/ML 6-30 (Same as: l / 16:29: Duoneb) [place] Ipratropium 00 [place] 0.167 MG/ML Inhalant Solution [DuoNeb] celecoxib Yes [...] summer 6-30 (Same as: l 16:29: Zofran) [place] 00 MEDICATION WASTE Product Size: 4 mg Product Wasted: ___ mg Diphenhydra No Notes: Alonzo summer mine 6-30 (Same as: l 16:29: Benadryl) [place] Albuterol No Notes: SEE Me moria 0.83 MG/ML 6-30 RT l Inhalant 16:29: DOCUMENTAT Her brito Solution 00 ION (Same as: Proventil) Atropine No Notes: Mem oria 6-30 MEDICATION l 16:29: WASTE Product Size: 0.4 mg Product Wasted: _0.2__ mg Glycopyrrol No Notes: Alonzo summer ate -30 (Same as: l 16:29: Robinul) [place] 00 Phenylephri No Notes: Alonzo summer ne 6-30 Same as: l 16:29: Erik-Syneph [place] 00 rine Albuterol No Notes: Memori a 0.833 MG/ML -30 (Same as: l / 16:29: Duoneb) [place] Ipratropium 00 [place] 0.167 MG/ML Inhalant Solution [DuoNeb] celecoxib Yes Notes: Memori a 6-30 NSAID. l 16:29: Please [place] 00 check indication . Not for seizure. (Same As: CeleBREX) 72 HR Yes Notes: [facility] Scopolamine 6-30 Change l 0.0139 16:29: patch [place] MG/HR 00 every 72 Transdermal hours Patch (Same as: Transderm- Scop) Midazolam No Notes: Memori a 6-30 (Same as: l 16:29: Versed) [place] 00 MEDICATION WASTE Product Size: 2 mg Product Wasted: _1__ mg Ephedrine No Notes: Memori a 6-30 (Same as: l 16:29: ePHEDrine [place] 00 Sulfate) Flumazenil No Notes: Memor ia 6-30 (Same as: l 16:29: Romazicon) [place] Calcium No 1,000 mL, Memor ia Chloride 6-30 Rate: 125 l 0.0014 16:29: ml/hr, [place] MEQ/ML / 00 Infuse Potassium over: 8 [...] Phenergan) Dexamethaso No Notes: Alonzo summer ne 630 Concentrat l 16:29: ion: [place] 00 4mg/ml [...] ate -30 (Same as: l 16:29: Robinul) [place] 00 Phenylephri No Notes: Alonzo summer ne 6-30 Same as: l 16:29: Erik-Syneph [place] 00 rine Albuterol No Notes: Memori a 0.833 MG/ML -30 (Same as: l / 16:29: Duoneb) [place] Ipratropium 00 [place] 0.167 MG/ML Inhalant Solution [DuoNeb] celecoxib Yes [...] en 30 Infuse l 16:29: over 15 00 minutes [...] 6-30 not give l 16:29: IV push. [place] 00 (Same as: Phenergan) Dexamethaso No Notes: Alonzo [...] as: l / 16:29: Duoneb) Ipratropium 00 [place] 0.167 MG/ML Inhalant Solution [DuoNeb] celecoxib Yes Notes: Memori a 6-30 NSAID. l 16:29: Please [place] 00 check indication . Not for seizure. (Same As: CeleBREX) 72 HR Yes Notes: [facility]oria Scopolamine 6-30 Change l 0.0139 16:29: patch [place] MG/HR 00 every 72 Transdermal hours Patch [...] 6-30 Rate: 125 l 0.0014 16:29: ml/hr, [place] MEQ/ML / 00 Infuse Potassium over: 8 [...] Memoria l 30 RT l 16:29: DOCUMENTAT [place] 00 ION [...] summer ne 08-09 Concentrat l 16:29: ion: [place] 00 4mg/ml Ondansetron No Notes: Alonzo summer 30 (Same as: l 16:29: Zofran) MEDICATION WASTE Product Size: 4 mg Product Wasted: ___ mg Diphenhydra No Notes: Alonzo summer mine 30 (Same as: l 16:29: Benadryl) Albuterol No Notes: SEE Me moria 0.83 MG/ML 30 RT l Inhalant 16:29: DOCUMENTAT Her brito Solution 00 ION (Same as: Proventil) Atropine No Notes: Mem oria 30 MEDICATION l 16:29: WASTE Product Size: 0.4 mg Product Wasted: _0.2__ mg Glycopyrrol No Notes: Alonzo summer ate 6-30 (Same as: l 16:29: Robinul) [place] 00 Phenylephri No Notes: Alonzo summer ne -30 Same as: l 16:29: Erik-Syneph [place] 00 rine Albuterol No Notes: Memori a 0.833 MG/ML 08-09 (Same as: l / 16:29: Duoneb) [place]ador Ipratropium 00 [place] 0.167 MG/ML Inhalant Solution [DuoNeb] celecoxib Yes Notes: Memori a 6-30 NSAID. l 16:29: Please [place] 00 check indication . Not for seizure. (Same As: CeleBREX) 72 HR Yes Notes: Memoria Scopolamine 08-09 Change l 0.0139 16:29: patch [place] MG/HR 00 every 72 Transdermal hours Patch [...] 30 Rate: 125 l 0.0014 16:29: ml/hr, [place] MEQ/ML / 00 Infuse Potassium over: 8 Chloride hr, Route: 0.004 IV, Dosing MEQ/ML / Weight Sodium 134.5 kg, Chloride Total 0.103 Volume: MEQ/ML / 1,000, Sodium Start Lactate date: 0.028 16 MEQ/ML 11:29:00 Injectable CDT, Solution Duration: 30 day, Stop date: 09/09/15 11:28:00 CDT Hydralazine No Notes: Alonzo summer -30 (Same as: l 16:29: Apresoline [place] 00 ) Push over 5 minutes Labetalol No [...] summer ne 6-30 Concentrat l 16:29: ion: [place] 00 4mg/ml Ondansetron No Notes: Alonzo summer [...] as: l / 16:29: Duoneb) Ipratropium 00 [place] 0.167 MG/ML Inhalant Solution [DuoNeb] celecoxib Yes Notes: Memori a 6-30 NSAID. l 16:29: Please [place] 00 check indication . Not for seizure. (Same As: CeleBREX) 72 HR Yes Notes: Memoria Scopolamine 6-30 Change l 0.0139 16:29: patch [place] MG/HR 00 every 72 Transdermal hours Patch [...] en 6-30 Infuse l 16:29: over 15 [place] 00 minutes Do not exceed 4gm/day of [...] Robinul) Phenylephri No Notes: [place]zo summer ne - Same as: l 16:29: Erik-Syneph rine Albuterol No Notes: Memori a 0.833 MG/ML 08-09 (Same as: l / 16:29: Duoneb) Ipratropium 00 [place] 0.167 MG/ML Inhalant Solution [DuoNeb] celecoxib Yes Notes: Memori a -30 NSAID. l 16:29: Please [place] 00 check indication . Not for seizure. (Same As: CeleBREX) 72 HR Yes Notes: Memoria Scopolamine 08-09 Change l 0.0139 16:29: patch [place] MG/HR 00 every 72 Transdermal hours Patch (Same as: Transderm- Scop) Midazolam No Notes: Memori a -30 (Same as: l 16:29: Versed) MEDICATION WASTE Product Size: 2 mg Product Wasted: _1__ mg Ephedrine No Notes: Memori a 08-09 (Same as: l 16:29: ePHEDrine Sulfate) Flumazenil No Notes: Memor ia 08-09 (Same as: l 16:29: Romazicon) Calcium No 1,000 mL, Memor ia Chloride 08-09 Rate: 125 l 0.0014 16:29: ml/hr, [place] MEQ/ML / 00 Infuse Potassium over: 8 Chloride hr, Route: 0.004 IV, Dosing MEQ/ML / Weight Sodium 134.5 kg, Chloride Total 0.103 Volume: MEQ/ML / 1,000, Sodium Start Lactate date: 0.028 08/10/15 MEQ/ML 11:29:00 Injectable CDT, Solution Duration: 30 day, Stop date: 09/09/15 11:28:00 CDT Hydralazine No Notes: Al[place]zo summer -30 (Same as: l 16:29: Apresoline [place] 00 ) Push over 5 minutes Labetalol No [...] / 6-30 (Same as: l Hydrocodone 16:24: [place] Judith nn Bitartrate 00 325/5) Do 5 MG Oral not exceed Tablet 4gm/day of acetaminop hen. Tramadol No Notes: Not Mem oria 6-30 to exceed l 16:24: 400mg/day. [place] 00 (Same As: Ultram) Acetaminoph No Notes: Do M emoria en 6-30 not exceed l 16:24: 4 gm/day. [place] 00 (Same as: Tylenol) Hydromorpho No Notes: Al[place]zo summer ne 6-30 (Same as: l 16:24: Dilaudid) [place] 00 Acetaminoph No Notes: Al[place]zo summer en 325 MG / 6-30 (Same as: l Hydrocodone 16:24: [place] Judith nn Bitartrate 00 325/5) Do 5 MG Oral not exceed Tablet 4gm/day of acetaminop hen. Tramadol No Notes: Not Mem oria 6-30 to exceed l 16:24: 400mg/day. [place] 00 (Same As: Ultram) Acetaminoph No Notes: Do M emoria en 6-30 not exceed l 16:24: 4 gm/day. [place] 00 (Same as: Tylenol) Hydromorpho No Notes: Al[place]zo summer ne 6-30 (Same as: l 16:24: Dilaudid) Acetaminoph No Notes: Al[place]zo summer en 325 MG / 6-30 (Same as: l Hydrocodone 16:24: [place] Judith nn Bitartrate 00 325/5) Do 5 MG Oral not exceed Tablet 4gm/day of acetaminop hen. Tramadol No Notes: Not Mem oria 6-30 to exceed l 16:24: 400mg/day. [place] 00 (Same As: Ultram) Acetaminoph No Notes: Do M emoria en 6-30 not exceed l 16:24: 4 gm/day. [place] 00 (Same as: Tylenol) Hydromorpho No Notes: Alonzo summer ne 6-30 (Same as: l 16:24: Dilaudid) [place] 00 Acetaminoph No Notes: Alonzo summer en 325 MG / 6-30 (Same as: l Hydrocodone 16:24: [place] Judith nn Bitartrate 00 325/5) Do 5 [...] / 6-30 (Same as: l Hydrocodone 16:24: [place] Judith nn Bitartrate 00 325/5) Do 5 [...] / 6-30 (Same as: l Hydrocodone 16:24: [place] Judith nn Bitartrate 00 325/5) Do 5 [...] / 6-30 (Same as: l Hydrocodone 16:24: [place] Judith nn Bitartrate 00 325/5) Do 5 MG Oral not exceed Tablet 4gm/day of acetaminop hen. Tramadol No Notes: Not Mem oria 6-30 to exceed l 16:24: 400mg/day. [place] 00 (Same As: Ultram) Acetaminoph No Notes: Do M emoria en 6-30 not exceed l 16:24: 4 gm/day. (Same as: Tylenol) Hydromorpho No Notes: [place] summer ne 6-30 (Same as: l 16:24: Dilaudid) Acetaminoph No Notes: Al[place] summer en 325 MG / 6-30 (Same as: l Hydrocodone 16:24: [place] Judith nn Bitartrate 00 325/5) Do 5 [...] / 6-30 (Same as: l Hydrocodone 16:24: [place] Judith nn Bitartrate 00 325/5) Do 5 [...] / 6-30 (Same as: l Hydrocodone 16:24: [place] Judith nn Bitartrate 00 325/5) Do 5 MG Oral not exceed Tablet 4gm/day of acetaminop hen. Tramadol No Notes: Not Mem oria 6-30 to exceed l 16:24: 400mg/day. (Same As: Ultram) Acetaminoph No Notes: Do M emoria en 6-30 not exceed l 16:24: 4 gm/day. [place] 00 (Same as: Tylenol) Hydromorpho No Notes: [place] summer ne 6-30 (Same as: l 16:24: Dilaudid) Acetaminoph No Notes: Al[place]zo summer en 325 MG / 6-30 (Same as: l Hydrocodone 16:24: [place] Judith nn Bitartrate 00 325/5) Do 5 MG Oral not exceed Tablet 4gm/day of acetaminop hen. Tramadol No Notes: Not Mem oria 6-30 to exceed l 16:24: 400mg/day. [place] 00 (Same As: Ultram) Acetaminoph No Notes: Do M emoria en 6-30 not exceed l 16:24: 4 gm/day. (Same as: Tylenol) Hydromorpho No Notes: [place] summer ne 6-30 (Same as: l 16:24: Dilaudid) Acetaminoph No Notes: Al[place] summer en 325 MG / 6-30 (Same as: l Hydrocodone 16:24: [place] Judith nn Bitartrate 00 325/5) Do 5 [...] (ANES) 6-30 Drug form: l 15:45: SOLN, [place] 00 ONCE, Stop date: 08/10/15 10:45:00 CDT [...] (ANES) 6-30 Drug form: l 15:45: SOLN, [place] 00 ONCE, Stop date: 08/10/15 10:45:00 CDT succinylcho 2016-0 No Route: IV, Memoria line (ANES) 6-30 Drug form: l 15:45: INJ, ONCE, [place] 00 Stop date: 08/10/15 10:45:00 CDT propofol [...] 6-30 Drug form: l 15:45: INJ, ONCE, [place] 00 Stop date: 08/10/15 10:45:00 CDT lidocaine 2016-0 No Route: IV, Me moria (ANES) 6-30 Drug form: l 15:45: INJ, ONCE, Stop date: 08/10/15 10:45:00 CDT fentaNYL 2016-0 No Route: IV, Mem oria (ANES) 6-30 Drug form: l 15:45: INJ, ONCE, [place] 00 Stop date: 08/10/15 10:45:00 CDT midazolam 2016-0 No Route: IV, Me moria (ANES) 6-30 Drug form: l 15:45: SOLN, [place] 00 ONCE, Stop date: 08/10/15 10:45:00 CDT [...] 6-30 Drug form: l 15:45: INJ, ONCE, [place] 00 Stop date: 08/10/15 10:45:00 CDT midazolam 2016-0 No Route: IV, Me moria (ANES) 6-30 Drug form: l 15:45: SOLN, [place] 00 ONCE, Stop date: 08/10/15 10:45:00 CDT succinylcho 2016-0 No Route: IV, Memoria line (ANES) 6-30 Drug form: l 15:45: INJ, ONCE, [place] 00 Stop date: 08/10/15 10:45:00 CDT propofol [...] 6-30 Drug form: l 15:45: INJ, ONCE, [place] 00 Stop date: 08/10/15 10:45:00 CDT lidocaine [...] (ANES) 6-30 Drug form: l 15:45: SOLN, [place] 00 ONCE, Stop date: 08/10/15 10:45:00 CDT [...] 6-30 Drug form: l 15:45: INJ, ONCE, [place] 00 Stop date: 08/10/15 10:45:00 CDT midazolam [...] 6-30 Drug form: l 15:45: INJ, ONCE, [place] 00 Stop date: 08/10/15 10:45:00 CDT midazolam 2016-0 No Route: IV, Me moria (ANES) 6-30 Drug form: l 15:45: SOLN, [place] 00 ONCE, Stop date: 08/10/15 10:45:00 CDT [...] INJ (ANES) 6-30 Total l 14:51: Volume: [place] 00 1,000, Start date: 08/10/15 9:51:00 CDT, [...] INJ (ANES) 6-30 Total l 14:51: Volume: [place] 00 1,000, Start date: 08/10/15 9:51:00 CDT, Stop date: 08/10/15 10:51:00 CDT LR 1000 mL No Route: IV, M emoria INJ (ANES) 6-30 Total l 14:51: Volume: [place] 00 1,000, Start date: 08/10/15 9:51:00 CDT, Stop date: 08/10/15 10:51:00 CDT LR 1000 mL No Route: IV, M emoria INJ (ANES) 6-30 Total l 14:51: Volume: [place] 00 1,000, Start date: 08/10/15 9:51:00 CDT, Stop date: 08/10/15 10:51:00 CDT LR 1000 mL No Route: IV, M emoria INJ (ANES) 6-30 Total l 14:51: Volume: [place] 00 1,000, Start date: 08/10/15 9:51:00 CDT, Stop date: 08/10/15 10:51:00 CDT LR 1000 mL No Route: IV, M emoria INJ (ANES) 6-30 Total l 14:51: Volume: [place] 00 1,000, Start date: 08/10/15 9:51:00 CDT, Stop date: 08/10/15 10:51:00 CDT LR 1000 mL No Route: IV, M emoria INJ (ANES) 6-30 Total l 14:51: Volume: [place] 00 1,000, Start date: 08/10/15 9:51:00 CDT, Stop date: 08/10/15 10:51:00 CDT Insulin, No Notes: Memoria Aspart, 6-30 Roll in l Human 13:01: palms of [place] 00 hands gently; Do not shake vigorously . (Same as: NovoLOG) "single patient use only" WASTE: F/P - Black; E - Municipal Trash Bin Stable for 28 days at room temperatur e. Expires in days from ____Date 200 ACTUAT No Notes: Memor ia Albuterol 08-09 Same as: l 0.09 13:01: Ventolin [place] MG/ACTUAT 00 HFA WASTE: Metered Aerosol - Dose Return to [facility] Calcium No 1,000 mL, Memor ia Chloride 08-09 Rate: 25 l 0.0014 13:01: ml/hr, [place] MEQ/ML / 00 Infuse Potassium over: 40 [...] Roll in l Human 13:01: palms of [place] 00 hands gently; Do not shake vigorously . (Same as: NovoLOG) "single patient use only" WASTE: F/P - Black; E - Municipal Trash Bin Stable for 28 days at room temperatur e. Expires in days from ____Date 200 ACTUAT No Notes: Memor ia Albuterol 6-30 Same as: l 0.09 13:01: Ventolin [place] MG/ACTUAT 00 HFA WASTE: Metered Aerosol - Dose Return to [facility] Calcium No 1,000 mL, Memor ia Chloride 6-30 Rate: 25 l 0.0014 13:01: ml/hr, [place] MEQ/ML / 00 Infuse Potassium over: 40 Chloride hr, Route: 0.004 IV, Dosing MEQ/ML / Weight Sodium 134.091 Chloride kg, Total 0.103 Volume: MEQ/ML / 1,000, Sodium Start Lactate date: 0.028 08/09/16 MEQ/ML 8:01:00 Injectable CDT, Solution Duration: 30 day, Stop date: 09/09/15 8:00:00 CDT Insulin, No Notes: Memoria Aspart, 6-30 Roll in l Human 13:01: palms of [place] 00 hands gently; Do not shake vigorously [...] 6-30 Rate: 25 l 0.0014 13:01: ml/hr, [place] MEQ/ML / 00 Infuse Potassium over: 40 [...] 6-30 Same as: l 0.09 13:01: Ventolin [place] MG/ACTUAT 00 HFA WASTE: Metered Aerosol - Dose Return to [facility] Calcium No 1,000 mL, Memor ia Chloride 6-30 Rate: 25 l 0.0014 13:01: ml/hr, [place] MEQ/ML / 00 Infuse Potassium over: 40 Chloride hr, Route: 0.004 IV, Dosing MEQ/ML / Weight Sodium 134.091 Chloride kg, Total 0.103 Volume: MEQ/ML / 1,000, Sodium Start Lactate date: 0.028 06/30/16 MEQ/ML 8:01:00 Injectable CDT, Solution Duration: 30 day, Stop date: 09/09/15 8:00:00 CDT Insulin, No Notes: Memoria Aspart, 6-30 Roll in l Human 13:01: palms of [place] 00 hands gently; Do not shake vigorously [...] 6-30 Same as: l 0.09 13:01: Ventolin [place] MG/ACTUAT 00 HFA WASTE: Metered Aerosol - [...] Roll in l Human 13:01: palms of [place] 00 hands gently; Do not shake vigorously [...] 6-30 Rate: 25 l 0.0014 13:01: ml/hr, [place] MEQ/ML / 00 Infuse Potassium over: 40 Chloride hr, Route: 0.004 IV, Dosing MEQ/ML / Weight Sodium 134.091 Chloride kg, Total 0.103 Volume: MEQ/ML / 1,000, Sodium Start Lactate date: 0.028 08/09/16 MEQ/ML 8:01:00 Injectable CDT, Solution Duration: 30 day, Stop date: 09/09/15 8:00:00 CDT Insulin, No Notes: Memoria Aspart, 6-30 Roll in l Human 13:01: palms of [place] 00 hands gently; Do not shake vigorously . (Same as: NovoLOG) "single patient use only" WASTE: F/P - Black; E - Municipal Trash Bin Stable for 28 days at room temperatur e. Expires in days from ____Date 200 ACTUAT No Notes: Memor ia Albuterol 6-30 Same as: l 0.09 13:01: Ventolin [place] MG/ACTUAT 00 HFA WASTE: Metered Aerosol - Dose Return to [facility] Calcium No 1,000 mL, Memor ia Chloride 6-30 Rate: 25 l 0.0014 13:01: ml/hr, [place] MEQ/ML / 00 Infuse Potassium over: 40 [...] 6-30 Same as: l 0.09 13:01: Ventolin [place] MG/ACTUAT 00 HFA WASTE: Metered Aerosol - Dose Return to [facility] Calcium No 1,000 mL, Memor ia Chloride 6-30 Rate: 25 l 0.0014 13:01: ml/hr, [place] MEQ/ML / 00 Infuse Potassium over: 40 [...] 6-30 Rate: 25 l 0.0014 13:01: ml/hr, [place] MEQ/ML / 00 Infuse Potassium over: 40 Chloride hr, Route: 0.004 IV, Dosing MEQ/ML / Weight Sodium 134.091 Chloride kg, Total 0.103 Volume: MEQ/ML / 1,000, Sodium Start Lactate date: 0.028 06/30/16 MEQ/ML 8:01:00 Injectable CDT, Solution Duration: 30 day, Stop date: 09/09/15 8:00:00 CDT Insulin, No Notes: Memoria Aspart, 6-30 Roll in l Human 13:01: palms of [place] 00 hands gently; Do not shake vigorously . (Same as: NovoLOG) "single patient use only" WASTE: F/P - Black; E - Municipal Trash Bin Stable for 28 days at room temperatur e. Expires in days from ____Date 200 ACTUAT No Notes: Memor ia Albuterol 6-30 Same as: l 0.09 13:01: Ventolin [place] MG/ACTUAT 00 HFA WASTE: Metered Aerosol - Dose Return to [facility] Calcium No 1,000 mL, Memor ia Chloride 6-30 Rate: 25 l 0.0014 13:01: ml/hr, [place] MEQ/ML / 00 Infuse Potassium over: 40 [...] Memoria 6-30 Same as: l 11:00: Ancef [place] 00 BD Normal No Notes: Memori a Saline 6-30 (Same as: l Flush 11:00: BD [place] 00 Posiflush) Ancef No Notes: Memoria 6-30 Same as: l 11:00: Ancef [place] 00 BD Normal No Notes: Memori a Saline 6-30 (Same as: l Flush 11:00: BD [place] 00 Posiflush) Ancef No Notes: Memoria 6-30 Same as: l 11:00: Ancef [place] 00 BD Normal No Notes: Memori a Saline 6-30 (Same as: l Flush 11:00: BD [place] 00 Posiflush) Ancef No Notes: Memoria 6-30 Same as: l 11:00: Ancef [place] 00 BD Normal No Notes: Memori a Saline 6-30 (Same as: l Flush 11:00: BD [place] 00 Posiflush) Ancef No Notes: Memoria 6-30 Same as: l 11:00: Ancef [place] 00 BD Normal No Notes: Memori a Saline 6-30 (Same as: l Flush 11:00: BD [place] 00 Posiflush) Ancef No Notes: Memoria 6-30 Same as: l 11:00: Ancef [place] 00 BD Normal No Notes: Memori a Saline 6-30 (Same as: l Flush 11:00: BD [place] 00 Posiflush) Ancef No Notes: Memoria 6-30 Same as: l 11:00: Ancef [place] 00 BD Normal 0 No Notes: Memori a Saline 6-30 (Same as: l Flush 11:00: BD [place] 00 Posiflush) Ancef No Notes: Memoria 6-30 Same as: l 11:00: Ancef [place] 00 BD Normal No Notes: Memori a Saline 6-30 (Same as: l Flush 11:00: BD [place] 00 Posiflush) Ancef No Notes: Memoria 6-30 Same as: l 11:00: Ancef [place] 00 BD Normal No Notes: Memori a Saline 6-30 (Same as: l Flush 11:00: BD [place] 00 Posiflush) Ancef No Notes: Memoria 6-30 Same as: l 11:00: Ancef [place] 00 BD Normal No Notes: Memori a Saline 6-30 (Same as: l Flush 11:00: BD [place] Posiflush) Ancef No Notes: Memoria 6-30 Same as: l 11:00: Ancef [place] 00 BD Normal No Notes: Memori a Saline 6-30 (Same as: l Flush 11:00: BD [place] 00 Posiflush) Ancef No Notes: Memoria 6-30 [...] tab, PO, l Tablet 14:58: Daily, # [place] [Nuvigil] 00 30 tab, 0 Refill(s) armodafinil Yes 250 mg = 1 Memoria 250 MG Oral 6-23 tab, PO, l Tablet 14:58: Daily, # [place] [Nuvigil] 00 30 tab, 0 Refill(s) armodafinil Yes 250 mg = 1 [place] 250 MG Oral 6-23 tab, PO, l Tablet 14:58: Daily, # [place] [Nuvigil] 00 30 tab, 0 Refill(s) armodafinil 2016-0 Yes 250 mg = 1 [place] 250 MG Oral 6-23 tab, PO, l Tablet 14:58: Daily, # [place] [Nuvigil] 00 30 tab, 0 Refill(s) armodafinil Yes 250 mg = 1 [place] 250 MG Oral 6-23 tab, PO, l Tablet 14:58: Daily, # [place] [Nuvigil] 00 30 tab, 0 Refill(s) armodafinil Yes 250 mg = 1 [place] 250 MG Oral 6-23 tab, PO, l Tablet 14:58: Daily, # [place] [Nuvigil] 00 30 tab, 0 Refill(s) armodafinil [...] tab, PO, l Tablet 14:58: Daily, # [place] [Nuvigil] 00 30 tab, 0 Refill(s) armodafinil Yes 250 mg = 1 [place] 250 MG Oral 6-23 tab, PO, l Tablet 14:58: Daily, # [place] [Nuvigil] 00 30 tab, 0 Refill(s) Suvorexant [...] tab, PO, l Tablet 14:56: Daily, 0 [place] [Zetia] 00 Refill(s) Milnacipran 0 Yes 50 [...] tab, PO, l Tablet 14:56: Daily, 0 [place] [Zetia] 00 Refill(s) Milnacipran 0 Yes 50 [...] tab, PO, l Tablet 14:56: Daily, 0 [place] [Zetia] 00 Refill(s) Milnacipran 0 Yes 50 [...] tab, PO, l Tablet 14:56: Daily, 0 [place] [Zetia] 00 Refill(s) Milnacipran 2016-0 Yes 50 [...] tab, PO, l Tablet 14:56: Daily, 0 [place] [Zetia] 00 Refill(s) Milnacipran 20160 Yes 50 [...] tab, PO, l Tablet 14:56: Daily, 0 [place] [Zetia] 00 Refill(s) Milnacipran 2015-0 Yes 50 [...] tab, PO, l Tablet 14:56: Daily, 0 [place] [Zetia] 00 Refill(s) Milnacipran 2016 Yes 50 [...] tab, PO, l Tablet 14:56: Daily, 0 [place] [Zetia] 00 Refill(s) Milnacipran Yes 50 mg [...] FlexTouch 6-23 Daily, 0 l 14:55: Refill(s) [place] 00 0.65 ML Yes 2 mg, Memoria [...] FlexTouch 6-23 Daily, 0 l 14:55: Refill(s) [place] 00 0.65 ML 2015-0 Yes 2 mg, [...] FlexTouch 6-23 Daily, 0 l 14:55: Refill(s) [place] 00 0.65 ML 2015-0 Yes 2 mg, [...] FlexTouch 6-23 Daily, 0 l 14:55: Refill(s) [place] 00 0.65 ML Yes 2 mg, Memoria [...] FlexTouch 6-23 Daily, 0 l 14:55: Refill(s) [place] 00 0.65 ML 0 Yes 2 mg, [...] FlexTouch 6-23 Daily, 0 l 14:55: Refill(s) [place] 00 0.65 ML 2015-0 Yes 2 mg, [...] FlexTouch 6-23 Daily, 0 l 14:55: Refill(s) [place] 00 0.65 ML 2016-0 Yes 2 mg, [...] FlexTouch 6-23 Daily, 0 l 14:55: Refill(s) [place] 00 0.65 ML 2015-0 Yes 2 mg, [...] Her brito Tablet 00 Refill(s) [VESICARE] golimumab 0 Yes IV, q4wk, Mem oria 12.5 MG/ML [...] spasms, # 30 tab, 0 Refill(s) Hydroxychlo [id number] Yes 200 mg, Mem oria roquine 6-23 PO, Daily, l 14:53: 0 [place] 00 Refill(s) pilocarpine Yes 7.5 mg = [...] roquine 6-23 PO, Daily, l 14:53: 0 [place] 00 Refill(s) pilocarpine 2016-0 Yes 7.5 mg [...] roquine 6-23 PO, Daily, l 14:53: 0 [place] 00 Refill(s) pilocarpine 2016-0 Yes 7.5 mg [...] roquine 6-23 PO, Daily, l 14:53: 0 [place] 00 Refill(s) pilocarpine 2016-0 Yes 7.5 mg [...] roquine 6-23 PO, Daily, l 14:53: 0 [place] 00 Refill(s) pilocarpine 2016-0 Yes 7.5 mg [...] roquine 6-23 PO, Daily, l 14:53: 0 [place] 00 Refill(s) pilocarpine 2016-0 Yes 7.5 mg [...] roquine 6-23 PO, Daily, l 14:53: 0 [place] 00 Refill(s) Hydroxychlo 2016-0 Yes 200 mg, Mem oria roquine 6-23 PO, Daily, l 14:53: 0 [place] 00 Refill(s) pilocarpine 2016-0 Yes 7.5 mg [...] Memori a e 6-23 Refill(s) l 14:52: [place] 00 Methotrexat Yes INTRATHECA Memoria e Sodium, [...] Memori a e 6-23 Refill(s) l 14:52: [place] 00 Methotrexat Yes INTRATHECA Memoria e Sodium, 6-23 L, ONCE, 0 l Preservativ 14:52: Refill(s) H ermann e Free 25 00 mg/mL injectable solution celecoxib Yes 200 mg = 1 Me moria 200 MG Oral 6-23 cap, PO, l Capsule 14:52: BID, 0 [place] [Celebrex] 00 Refill(s) Methotrexat Yes 0 Memori a e 6-23 Refill(s) l 14:52: [place] 00 Methotrexat Yes INTRATHECA Memoria e Sodium, [...] cap, PO, l Capsule 14:52: BID, 0 [place] [Celebrex] 00 Refill(s) Methotrexat Yes 0 Memori a e 6-23 Refill(s) l 14:52: [place] 00 Methotrexat Yes INTRATHECA Memoria e Sodium, 6-23 L, ONCE, 0 l Preservativ 14:52: Refill(s) H ermann e Free 25 00 mg/mL injectable solution celecoxib Yes 200 mg = 1 Me moria 200 MG Oral 6-23 cap, PO, l Capsule 14:52: BID, 0 [place] [Celebrex] 00 Refill(s) Methotrexat Yes 0 Memori a e 6-23 Refill(s) l 14:52: [place] 00 Methotrexat Yes INTRATHECA Memoria e Sodium, 6-23 L, ONCE, 0 l Preservativ 14:52: Refill(s) H ermann e Free 25 00 mg/mL injectable solution celecoxib Yes 200 mg = 1 Me moria 200 MG Oral 6-23 cap, PO, l Capsule 14:52: BID, 0 [place] [Celebrex] 00 Refill(s) Methotrexat Yes 0 Memori [...] Memori a e 6-23 Refill(s) l 14:52: [place] 00 Methotrexat Yes INTRATHECA Memoria e Sodium, 6-23 L, ONCE, 0 l Preservativ 14:52: Refill(s) H ermann e Free 25 00 mg/mL injectable solution celecoxib Yes 200 mg = 1 Me moria 200 MG Oral 6-23 cap, PO, l Capsule 14:52: BID, 0 [place] [Celebrex] 00 Refill(s) Methotrexat Yes 0 Memori a e 6-23 Refill(s) l 14:52: [place] 00 Methotrexat Yes INTRATHECA Memoria e Sodium, 6-23 L, ONCE, 0 l Preservativ 14:52: Refill(s) H ermann e Free 25 00 mg/mL injectable solution Folic Acid Yes 1 mg = 1 Mem oria 1 MG Oral 6-23 tab, PO, l Tablet 14:51: Daily, 0 [place] 00 Refill(s) Folic Acid Yes 1 mg = 1 Mem oria 1 MG Oral 6-23 tab, PO, l Tablet 14:51: Daily, 0 [place] 00 Refill(s) Folic Acid 2016-0 Yes 1 mg = 1 Mem oria 1 MG Oral 6-23 tab, PO, l Tablet 14:51: Daily, 0 [place] 00 Refill(s) Folic Acid 2016-0 Yes 1 mg = 1 Mem oria 1 MG Oral 6-23 tab, PO, l Tablet 14:51: Daily, 0 [place] 00 Refill(s) Folic Acid 2016-0 Yes 1 mg = 1 Mem oria 1 MG Oral 6-23 tab, PO, l Tablet 14:51: Daily, 0 [place] 00 Refill(s) Folic Acid 2016-0 Yes 1 [...] tab, PO, l Tablet 14:51: Daily, 0 [place] 00 Refill(s) Folic Acid 20160 Yes 1 mg = 1 Mem oria 1 MG Oral 6-23 tab, PO, l Tablet 14:51: Daily, 0 [place] 00 Refill(s) Folic Acid 2016-0 Yes 1 mg = 1 Mem oria 1 MG Oral 6-23 tab, PO, l Tablet 14:51: Daily, 0 [place] 00 Refill(s) Folic Acid 2016-0 Yes 1 mg = 1 Mem oria 1 MG Oral 6-23 tab, PO, l Tablet 14:51: Daily, 0 [place] Refill(s) Folic Acid 2016-0 Yes 1 mg [...] MG Oral Phy sici Tablet Tablet ans Celebrex Celebrex Yes Luciano 1 capsule Common Travis with food [facility] Cyclobenzap Cyclobenzap Yes Luciano 1 tablet Common rine HCl rine HCl Travis as needed [facility] Zestoretic Zestoretic Yes Luciano 1 tablet Common Travis [facility] Abilify Abilify Yes Luciano 1 tablet Com mon Travis [facility] CeleBREX CeleBREX Yes [facility] CAPS CAPS Physici ans Restasis Restasis Yes Luciano 1 drop Com mon [place] into [facility] affected [facility] eye [facility] Humalog Humalog Yes Luciano as Common Travis directed [facility] Plaquenil Plaquenil Yes Luciano 1 tablet Common Travis with food [facility] or milk [facility] Iron Iron Yes Luciano 1 tablet Common Travis [facility] Leflunomide Leflunomide Yes Luciano 1 tablet Common Travis [facility] Vistaril Vistaril Yes Luciano 1 capsule Common Travis as needed [facility] Hydroxychlo Hydroxychlo Yes U T roquine roquine Physici Sulfate 200 Sulfate 200 a ns MG Oral MG Oral Tablet Tablet Bydureon Bydureon Yes Luciano not Commo n Travis defined [facility] ProAir HFA ProAir HFA Yes Luciano 2 puffs as Common Travis needed [facility] Pilocarpine Pilocarpine Yes Luciano 1 tablet Common HCl HCl Travis [facility] Savella Savella Yes Luciano 2 tablets Co mmon Travis [facility] Guaifenesin Guaifenesin Yes Luciano 10 ml as Common -Codeine -Codeine Travis needed [facility] Atorvastati Atorvastati Yes Luciano 1 tablet Common n Calcium n Calcium Travis [facility] Omeprazole Omeprazole Yes Luciano 1 capsule Common Travis [facility] Breo Breo Yes Luciano 1 puff Common Ellipta Ellipta Travis [facility] Trazodone Trazodone Yes Luciano 1 tablet Common HCl HCl Travis at bedtime [facility] Folic Acid Folic Acid Yes UT 1 MG Oral 1 MG Oral Physi ci Tablet Tablet ans [place] Colto Yes Luciano not Common SoloStar SoloStar Travis defined [facility]pi [facility] Tolterodine Tolterodine Yes Luciano 1 capsule Common Tartrate ER Tartrate ER Travis [facility] Hemocyte Hemocyte Yes Luciano 1 capsule Common Plus Plus Travis [facility] Folic Acid Folic Acid Yes Luciano 1 tablet Common Travis [facility] MetFORMIN MetFORMIN Yes Luciano 1 tablet Common HCl ER HCl ER Travis at night [facility] Metformin Metformin Yes Luciano 1 tablet Common HCl HCl Travis with a Spirit meal in - [facility] Pilocarpine Pilocarpine Yes U T HCl - 7.5 HCl - 7.5 Physi ci MG Oral MG Oral ans Tablet Tablet Saphris Saphris Yes Luciano 1 tablet Com mon Travis under the [facility] tongue and - [facility] allow to [facility] Paxil Paxil Yes Luciano 1 tablet Common Travis in the [facility] Colace Colace Yes Luciano 1 capsule Comm on Travis as needed [facility] Leflunomide Leflunomide No 1{table QD Leflunomid 20 MG 20 MG t} e 20 MG Hemocyte Hemocyte No 1{capsu QD Hemocyte Plus 106-1 Plus 106-1 le} Plus 106-1 MG MG MG amitriptyli amitriptyli No amitriptyl ne ne ine HydrOXYzine HydrOXYzine Yes U T HCl - 25 MG HCl - 25 MG P hysici Oral Tablet Oral Tablet a ns Breo Breo No 1{puff} QD Breo Ellipta [...] amitriptyli amitriptyli No amitriptyl ne ne ine Tresiba Tresiba Yes [facility] FlexTouch FlexTouch Physi ci SOPN SOPN ans Breo Breo No 1{puff} QD Breo [...] 200 MG t_with_ 200 MG food_or _milk} Bydureon Bydureon Yes [facility] PEN PEN [facility]ici ans HumaLOG 100 HumaLOG 100 No HumaLOG UNIT/ML UNIT/ML 100 UNIT/ML guaiFENesin guaiFENesin No 10{ml_a guaiFENesi -Codeine -Codeine s_neede n-Codeine 100-10 100-10 d} 100-10 MG/5ML MG/5ML MG/5ML [place] No [place] metFORMIN metFORMIN No QD metFORMIN HCl 1000 [...] 100-10 100-10 d} 100-10 MG/5ML MG/5ML MG/5ML [place] No [place] metFORMIN metFORMIN No QD metFORMIN HCl 1000 [...] 100-10 100-10 d} 100-10 MG/5ML MG/5ML MG/5ML [place] No [place] metFORMIN metFORMIN No QD metFORMIN HCl 1000 [...] 500 HCl ER 500 MG MG MG Toumatthias Eller No BID [place] SoloStar SoloStar SoloStar 300u/ml 300u/ml 300u/ml Colace [...] FlexTouch 200 UNIT/ML 200 UNIT/ML 200 UNIT/ML Amitriptyli Amitriptyli No 1{table QD Amitriptyl ne HCl 25 ne HCl 25 t_at_be ine HCl 25 MG MG dtime} MG Atorvastati Atorvastati No 1{table QD Atorvastat n Calcium n Calcium t} in Calcium 10 MG 10 MG 10 MG Gabapentin Gabapentin No 2{table BID Gabapentin 600 MG 600 MG ts} 600 MG Diclofenac Diclofenac No 1{table BID Diclofenac Sodium 75 Sodium 75 t_as_ne Sodium 75 MG MG eded} MG Lipoic Acid Lipoic Acid No Lipoic 150 MG 150 MG Acid 150 MG CeleBREX CeleBREX No 1{capsu QD CeleBREX 200 MG 200 MG le_with 200 MG _food} Accu-Chek Accu-Chek No Accu-Chek Guide - Guide - Guide - Pilocarpine Pilocarpine No 1{table TID Pilocarpin HCl 7.5 MG HCl 7.5 MG t} e HCl 7.5 MG Omeprazole Omeprazole No 1{capsu QD Omeprazole 40 MG 40 MG le} 40 MG Orphenadrin Orphenadrin No 1{table BID Orphenadri e Citrate e Citrate t} ne Citrate ER 100 MG ER 100 MG ER 100 MG Tolterodine Tolterodine No 1{capsu QD Tolterodin Tartrate ER Tartrate ER le} e Tartrate 4 MG 4 MG ER 4 MG Plaquenil Plaquenil No 1{table QD Plaquenil 200 MG 200 MG t_with_ 200 MG food_or _milk} Hemocyte Hemocyte No 1{capsu QD Hemocyte Plus 106-1 Plus 106-1 le} Plus 106-1 MG MG MG Tresiba Tresiba No QD Tresiba FlexTouch FlexTouch FlexTouch 200 UNIT/ML 200 UNIT/ML 200 UNIT/ML Iron 325 Iron 325 No 1{table QD Iron 325 (65 Fe) MG (65 Fe) MG t} (65 Fe) MG Folic Acid Folic Acid No 1{table QD Folic Acid 1 MG 1 MG t} 1 MG Cyclobenzap Cyclobenzap No 1{table TID Cyclobenza rine HCl 10 rine HCl 10 t_as_ne anatoliy HCl MG MG eded} 10 MG Ozempic Ozempic No Ozempic (0.25 or (0.25 or (0.25 or 0.5 0.5 0.5 MG/DOSE) 2 MG/DOSE) 2 MG/DOSE) 2 MG/1.5ML MG/1.5ML MG/1.5ML Leflunomide Leflunomide No 1{table QD Leflunomid 20 MG 20 MG t} e 20 MG ProAir HFA ProAir HFA No 2{puffs [...] QD Abilify 20 MG MG t} MG [place]ame[place] No [place] Plaquenil Plaquenil No 1{table QD Plaquenil 200 [...] QD Abilify 20 MG MG t} MG [place] No [place] Plaquenil Plaquenil No 1{table QD Plaquenil 200 [...] QD Abilify 20 MG MG t} MG [place]amere No [place] Plaquenil Plaquenil No 1{table QD Plaquenil 200 [...] QD Abilify 20 MG MG t} MG [place]amere No [place] Plaquenil Plaquenil No 1{table QD Plaquenil 200 [...] 100 No HumaLOG UNIT/ML UNIT/ML 100 UNIT/ML [place] No [place] Breo Breo No 1{puff} QD Breo Ellipta [...] 100 No HumaLOG UNIT/ML UNIT/ML 100 UNIT/ML [place] No [place] Breo Breo No 1{puff} QD Breo Ellipta [...] 100 No HumaLOG UNIT/ML UNIT/ML 100 UNIT/ML [place] No [place] Breo Breo No 1{puff} QD Breo Ellipta [...] 100 No HumaLOG UNIT/ML UNIT/ML 100 UNIT/ML [place] No [place] Breo Breo No 1{puff} QD Breo Ellipta [...] 200 MG t_with_ 200 MG food_or _milk} [place] No [place] Omeprazole Omeprazole No 1{capsu QD Omeprazole 40 [...] Vistaril MG MG le_as_n 25 MG eeded} Toumatthias Eller No BID Rafita SoloStar SoloStar SoloStar 300u/ml 300u/ml 300u/ml ProAir [...] Zestoretic 20-12.5 MG 20-12.5 MG 20-12.5 MG [place] No [place] Iron 325 Iron 325 No 1{table QD [...] Zestoretic 20-12.5 MG 20-12.5 MG 20-12.5 MG [place] No [place] Iron 325 Iron 325 No 1{table QD [...] t_under MG _the_to ngue_an d_allow _to_dis solve} [place] No [place] Zoloft 50 Zoloft 50 No 1{table QD [...] Ellipta 200-25 200-25 200-25 MCG/INH MCG/INH MCG/INH [place] No [place] metFORMIN metFORMIN No QD metFORMIN HCl ER [...] 100-10 100-10 d} 100-10 MG/5ML MG/5ML MG/5ML [place] No [place] Folic Acid Folic Acid No 1{table QD [...] 100-10 100-10 d} 100-10 MG/5ML MG/5ML MG/5ML [place] No [place] Folic Acid Folic Acid No 1{table QD [...] Commen ts Source [facility] ([facility] ([facility]olone) 14:42:00 - [facility] 2019-11-02 Completed [facility] (Triamcinolone) (Triamcinolone) 14:42:00 [facility] 2019-11-02 Completed [facility] (Triamcinolone) (Triamcinolone) 14:42:00 [facility] 2019-11-02 Completed [facility] (Triamcinolone) (Triamcinolone) 14:42:00 [facility] 2019-11-02 Completed [facility] (Triamcinolone) (Triamcinolone) 14:42:00 - [facility] 2019-11-02 Completed [facility] (Triamcinolone) (Triamcinolone) 14:42:00 [facility] 2019-11-02 Completed [facility] (Triamcinolone) (Triamcinolone) 14:42:00 [facility] 2019-11-02 Completed [facility] (Triamcinolone) (Triamcinolone) 14:42:00 [facility] 2019-11-02 Completed [facility] (Triamcinolone) (Triamcinolone) 14:42:00 [facility] Vital Signs Vital Name Observation Time Observation Value Comments Source height 2022-02-08 71 [in_i] [facility] - 15:20:00 [facility] weight 2022-02-08 240 [lb_av] [facility] - 15:20:00 [facility] bmi 2022-02-08 33.47 kg/m2 [facility] - 15:20:00 [facility] height 2022-01-16 71 [in_i] [facility] - 10:40:00 [facility] weight 2022-01-16 239.6 [lb_av] [facility] - 10:40:00 [facility] temperature 2022-01-16 97.5 [degF] [facility] - 10:40:00 [facility] bmi 2022-01-16 33.41 kg/m2 [facility] - 10:40:00 [facility] oximetry 2022-01-16 97 % [facility] - 10:40:00 [facility] respiratory rate 2022-01-16 17 /min [facility] - 10:40:00 [facility] blood pressure 2022-01-16 121 mm[Hg] [facility] - systolic 10:40:00 [facility] blood pressure 2022-01-16 68 mm[Hg] [facility] - diastolic 10:40:00 [facility] Systolic blood 2021-10-31 126 mm[Hg] [facility] pressure 19:16:00 Diastolic blood 2021-10-31 84 mm[Hg] [facility] pressure 19:16:00 Body height 2021-10-31 180.3 cm [facility] 19:16:00 Body weight 2021-10-31 112.038 kg [facility] 19:16:00 BMI 2021-10-31 34.45 kg/m2 [facility] 19:16:00 Systolic blood 2021-10-24 118 mm[Hg] [facility] pressure 18:53:00 Diastolic blood 2021-10-24 68 mm[Hg] [facility] pressure 18:53:00 Body temperature 2021-10-24 36.44 Teresa [facility] 18:53:00 Body height 2021-10-24 180.3 cm [facility] 18:53:00 Body weight 2021-10-24 112.401 kg [facility] 18:53:00 BMI 2021-10-24 34.56 kg/m2 [facility] 18:53:00 height 2021-10-17 71 [in_i] [facility] - 11:20:00 [facility] weight 2021-10-17 230 [lb_av] [facility] - 11:20:00 [facility] temperature 2021-10-17 97.6 [degF] [facility] - 11:20:00 [facility] bmi 2021-10-17 32.07 kg/m2 [facility] - 11:20:00 [facility] oximetry 2021-10-17 97 % [facility] - 11:20:00 [facility] respiratory rate 2021-10-17 16 /min [facility] - 11:20:00 [facility] blood pressure 2021-10-17 132 mm[Hg] [facility] - systolic 11:20:00 [facility] blood pressure 2021-10-17 76 mm[Hg] [facility] - diastolic 11:20:00 [facility] Systolic blood 2021-10-11 135 mm[Hg] [facility] 13:08:00 [facility] Diastolic blood 2021-10-11 81 mm[Hg] [facility] 13:08:00 [facility] Heart rate 2021-10-11 78 /min [facility] 13:08:00 [facility] Body height 2021-10-11 180.3 cm [facility] 13:08:00 [facility] Body weight 2021-10-11 104.101 kg [facility] 13:08:00 [facility] BMI 2021-10-11 32.01 kg/m2 [facility] 13:08:00 [facility] Oxygen saturation 2021-10-11 97 /min [facility] Arterial blood 13:08:00 [facility] Pulse oximetry [place] height 2021-07-18 71.5 [in_i] [facility] - 10:40:00 [facility] weight 2021-07-18 228.9 [lb_av] [facility] - 10:40:00 [facility] temperature 2021-07-18 98.1 [degF] [facility] - 10:40:00 [facility] bmi 2021-07-18 31.48 kg/m2 [facility] - 10:40:00 [facility] oximetry 2021-07-18 95 % [facility] - 10:40:00 [facility] respiratory rate 2021-07-18 17 /min [facility] - 10:40:00 [facility] blood pressure 2021-07-18 135 mm[Hg] [facility] - systolic 10:40:00 [facility] blood pressure 2021-07-18 76 mm[Hg] [facility] - diastolic 10:40:00 [facility] height 2021-04-03 71.5 [in_i] [facility] - 15:00:00 [facility] weight 2021-04-03 234 [lb_av] [facility] - 15:00:00 [facility] temperature 2021-04-03 96.9 [degF] [facility] - 15:00:00 [facility] bmi 2021-04-03 32.18 kg/m2 [facility] - 15:00:00 [facility] oximetry 2021-04-03 98 % [facility] - 15:00:00 [facility] respiratory rate 2021-04-03 17 /min [facility] - 15:00:00 [facility] blood pressure 2021-04-03 138 mm[Hg] [facility] - systolic 15:00:00 [facility] blood pressure 2021-04-03 75 mm[Hg] [facility] - diastolic 15:00:00 [facility] Systolic blood 2021-03-26 152 mm[Hg] [facility] pressure 18:40:00 [facility] Diastolic blood 2021-03-26 58 mm[Hg] [facility] 18:40:00 [facility] Heart rate 2021-03-26 95 /min [facility] 18:40:00 [facility] Body temperature 2021-03-26 37.22 Teresa [facility] 18:40:00 [facility] Respiratory rate 2021-03-26 18 /min [facility] 18:40:00 [facility] Body weight 2021-03-26 106.595 kg [facility] 18:40:00 [facility] BMI 2021-03-26 32.78 kg/m2 [facility] 18:40:00 [facility] Oxygen saturation 2021-03-26 100 /min [facility] in Arterial blood 18:40:00 [facility] by Pulse oximetry [place] height 2021-03-05 71.5 [in_i] [facility] - 09:50:00 [facility] weight 2021-03-05 239.4 [lb_av] [facility] - 09:50:00 [facility] temperature 2021-03-05 98.1 [degF] [facility] - 09:50:00 [facility] bmi 2021-03-05 32.92 kg/m2 [facility] - 09:50:00 [facility] oximetry 2021-03-05 98 % [facility] - 09:50:00 [facility] respiratory rate 2021-03-05 18 /min [facility] - 09:50:00 [facility] blood pressure 2021-03-05 136 mm[Hg] [facility] - systolic 09:50:00 [facility] blood pressure 2021-03-05 64 mm[Hg] [facility] - diastolic 09:50:00 [facility] height 2021-03-05 71.5 [in_i] [facility] - 09:50:00 [facility] weight 2021-03-05 239.4 [lb_av] [facility] - 09:50:00 [facility] temperature 2021-03-05 98.1 [degF] [facility] - 09:50:00 [facility] bmi 2021-03-05 32.92 kg/m2 [facility] - 09:50:00 [facility] oximetry 2021-03-05 98 % [facility] - 09:50:00 [facility] blood pressure 2021-03-05 136 mm[Hg] [facility] - systolic 09:50:00 [facility] blood pressure 2021-03-05 64 mm[Hg] [facility] - diastolic 09:50:00 [facility] height 2020-12-07 71.5 [in_i] [facility] - 10:10: [facility] weight 2020-12-07 250.3 [lb_av] [facility] - :10: [facility] temperature 2020-12-07 98.0 [degF] [facility] - 10:10: [facility] bmi 2020-12-07 34.42 kg/m2 [facility] - :10: [facility] oximetry 2020-12-07 98 % [facility] - 10:10: [facility] respiratory rate 2020-12-07 17 /min [facility] it - :: [facility] blood pressure 2020-12-07 135 mm[Hg] [facility] - systolic 10:10: [facility] blood pressure 2020-12-07 70 mm[Hg] [facility] - diastolic 10:10: [facility] Systolic blood 2020-12-03 127 mm[Hg] [facility] pressure 19:16:00 [facility] Diastolic blood 2020-12-03 84 mm[Hg] [facility] pressure 19:16:00 [facility] Heart rate 2020-12-03 85 /min [facility] 19:16:00 [facility] Body temperature 2020-12-03 36.5 Teresa [facility] 19:16:00 [facility] Respiratory rate 2020-12-03 16 /min [facility] 19:16:00 [facility] Body height 2020-12-03 180.3 cm [facility] 19:16:00 [facility] Body weight 2020-12-03 113.399 kg [facility] 19:16:00 [facility] BMI 2020-12-03 34.87 kg/m2 [facility] 19:16:00 [facility] Oxygen saturation 2020-12-03 97 /min [facility] Arterial blood 19:16:00 [facility] Pulse oximetry [place] height 2020-10-26 71.5 [in_i] [facility] - 10:10: [facility] weight 2020-10-26 290 [lb_av] [facility] - 10:10: [facility] temperature 2020-10-26 98 [degF] [facility] - 10:10: [facility] bmi 2020-10-26 39.88 kg/m2 [facility] - 10:10:00 [facility] blood pressure 2020-10-26 131 mm[Hg] [facility] - systolic 10:10:00 [facility] blood pressure 2020-10-26 70 mm[Hg] [facility] - diastolic 10:10:00 [facility] Systolic blood 2020-06-21 148 mm[Hg] [facility] pressure 20:01:00 [facility] Diastolic blood 2020-06-21 85 mm[Hg] [facility] 20:01:00 [facility] Heart rate 2020-06-21 83 /min [facility] 20:01:00 [facility] Body temperature 2020-06-21 36.94 Teresa [facility] 20:01:00 [facility] Respiratory rate 2020-06-21 18 /min [facility] 20:01:00 [facility] Body height 2020-06-21 180.3 cm [facility] 20:01:00 [facility] Body weight 2020-06-21 131.271 kg [facility] 20:01:00 [facility] BMI 2020-06-21 40.36 kg/m2 [facility] 20:01:00 [facility] Systolic blood 2022-01-24 155 mm[Hg] [facility] 16:10[facility]00 [facility] Diastolic blood 2022-01-24 77 mm[Hg] [facility] 16:10:00 [facility] Heart rate 2022-01-24 85 /min [facility] 16:[facility] Body temperature 2022-01-24 36.39 Teresa [facility] 16:10:00 [facility] Respiratory rate 2022-01-24 20 /min [facility] 16:10[facility]00 [facility] Oxygen saturation 2022-01-24 100 /min [facility] Arterial blood 16:10:00 [facility] by Pulse oximetry Body height 2022-01-24 180.3 cm [facility] 14:12:00 [facility] Body weight 2022-01-24 106.2 kg [facility] 14:12[facility]00 [facility] BMI 2022-01-24 32.65 kg/m2 [facility] 14:12[facility] Systolic blood 2020-06-22 144 mm[Hg] [facility] 15:10:00 [facility] Diastolic blood 2020-06-22 65 mm[Hg] [facility] 15:10:00 [facility] Heart rate 2020-06-22 88 /min [facility] 15:10[facility] Body temperature 2020-06-22 36.22 Teresa [facility] 15:10:00 [facility] Body height 2020-06-22 180.3 cm [facility] 15:10:00 [facility] Respiratory rate 2020-05-05 16 /min [facility] 20:27:41 [facility] Oxygen saturation 2020-05-05 98 /min [facility] Arterial blood 20:27:41 [facility] by Pulse oximetry Body weight 2020-05-04 128.187 kg [facility] 22:05:46 [facility] BMI 2020-05-04 39.41 kg/m2 [facility] 22:05:46 [facility] BP Systolic 2017-09-03 130 mm[Hg] Location: LUE; [facility] 11:02:00 Position: Sitting BP Diastolic 2017-09-03 80 mm[Hg] Location: TEDE; [facility] 11:02:00 Position: Sitting Height 2017-09-03 71 [in_us] [facility] 11:02:00 Weight 2017-09-03 298 [lb_av] [facility] 11:02:00 Body Mass Index 2017-09-03 41.56 kg/m2 [facility] 11:02:00 Temperature 2017-09-03 97.8 [degF] [facility] 11:02:00 BP Systolic 2017-08-27 108 mm[Hg] Location: TEDE; [facility] 14:27:00 Position: Sitting BP Diastolic 2017-08-27 70 mm[Hg] Location: NAIN; [facility] 14:27:00 Position: Sitting Height 2017-08-27 71 [in_us] [facility] 14:27:00 Weight 2017-08-27 298 [lb_av] [facility] 14:27:00 Body Mass Index 2017-08-27 41.56 kg/m2 [facility] 14:27:00 Temperature 2017-08-27 97.9 [degF] [facility] 14:27:00 BP Systolic 2017-08-21 130 mm[Hg] Location: LUE; [facility] 10:23:00 Position: Sitting BP Diastolic 2017-08-21 84 mm[Hg] Location: NAIN; [facility] 10:23:00 Position: Sitting Height 2017-08-21 [...] BP Systolic 2017-06-19 140 mm[Hg] Location: LUE; [facility] 15:26:00 Position: Sitting BP Diastolic 2017-06-19 80 mm[Hg] Location: LUE; [facility] 15:26:00 Position: Sitting Height 2017-06-19 71 [...] [facility] 09:20:00 Weight 2017-06-09 298 [lb_av] [facility] 09:20:00 Body Mass Index 2017-06-09 41.56 kg/m2 [facility] 09:20:00 Temperature 2017-06-09 98.2 [degF] [facility] 09:20:00 [facility] 13:14:00 Weight 2015-08-10 Chrystal Padilla n 13:14:00 Temperature Oral 2015-08-03 98.5 F Chrystal salgado (F) 14:50:00 Height 2015-08-03 180.34 cm Chrystal Padilla n 13:51:00 Procedures Procedure Date / Time Performing Clinician Source Performed VITRECTOMY 2022-01-24 14:57:00 [facility] P[facility] GLUCOSE 2022-01-24 14:38:00 [facility] POCT URINALYSIS DIPSTICK 2021-10-31 19:16:00 Shefali Hooper [facility] POCT URINALYSIS DIPSTICK 2021-10-24 18:43:00 Lavern Andressa [facility] POCT HEMOGLOBIN A1C TEST 2021-10-10 18:23:00 Brody Hinds [facility] REFERRAL- REQUEST/RESPONSE 2021-05-28 05:01[facility]00 [facility] Name [facility] [place] NOTICE OF PRIVACY 2021-03-26 18:27:07 Doctor Unassgiorgio, [facility] CONSENT/REFUSAL FOR 2021-03-26 18:26:47 [facility] DIAGNOSIS AND TREATMENT [place] [facility] [place] NOTICE OF PRIVACY 2020-12-18 16:26:34 Doctor Unassgiorgio, [facility] CONSENT/REFUSAL FOR 2020-12-18 16:25:51 [facility] DIAGNOSIS AND TREATMENT [facility] [place] ASSIGNMENT OF BENEFITS 2020-12-18 16:25:20 Doctor Shana, [facility] Name Medical Branch REFERRAL- REQUEST/RESPONSE 2020-12-08 05:01:00 [facility] [place] [facility] [place] EKG-12 LEAD 2020-12-03 20:44:28 Merlyn Peacock [facility] NOTICE OF PRIVACY 2020-12-03 19:10:09 Doctor Shana, [facility] [place] MRI BRAIN W WO CONTRAST 2020-05-05 18:29:00 Vidal Ortiz [facility] POC GLUCOSE 2020-05-05 17:10:00 Chloe [facility]ital TTE COMPLETE, WO CONTRAST, 2020-05-05 15:22:00 [facility] ([id number][facility] POC GLUCOSE 2020-05-05 12:19:00 [facility] HC COMPLETE BLD COUNT 2020-05-05 10:15:[address] [facility] W/AUTO DIFF BASIC METABOLIC PANEL 2020-05-05 10:15:[address] [facility] VITAMIN B12 LEVEL 2020-05-05 10:15:00 [facility] VITAMIN B1 LEVEL, WHOLE 2020-05-05 10:15:00 [facility] BLOOD THYROID STIMULATING 2020-05-05 10:15:00 [facility] HORMONE LIPID PANEL 2020-05-05 10:15:00 [facility]EM[facility] A1C 2020-05-05 10:15:00 [facility] spital SEDIMENTATION RATE 2020-05-05 10:15:00 [facility] RAPID HIV 1 & 2 2020-05-05 10:15:00 [facility] SY[facility]ILIS TREPONEMA SCREEN 2020-05-05 10:15:00 [facility] WITH RPR CONFIRMATION (REVERSE ALGORITHM) ESTIMATED GFR 2020-05-05 10:15:00 [facility] C-REACTIVE PROTEIN 2020-05-05 10:15:00 [facility] POC GLUCOSE 2020-05-05 01:38:00 Mily [facility] POC GLUCOSE 2020-05-04 22:14:00 [facility] URINE CULTURE 2020-05-04 20:33:00 [facility] URINALYSIS SCREEN AND 2020-05-04 20:33:00 [facility] WITH REFLEX TO CULTURE COVID-19 QUALITATIVE 2020-05-04 20:27:00 Tom Means [facility] RT-PCR ECG 12-LEAD 2020-05-04 20:21:36 Chloe Minor [facility] spital CT ANGIOGRAM NECK W WO 2020-05-04 19:46:05 Tom Means [facility] CONTRAST CT ANGIOGRAM HEAD W WO 2020-05-04 19:45:[facility] STROKE BRAIN WO 2020-05-04 19:36:06 [facility] HC COMPLETE BLD COUNT 2020-05-04 19:19:00 Tom Means [facility] W/AUTO DIFF PARTIAL THROMBOPLASTIN 2020-05-04 19:19[facility]00 [facility] TIME (PTT[facility] PROTHROMBIN TIME WITH INR 2020-05-04 19:19:00 [facility] COMPREHENSIVE METABOLIC 2020-05-04 19:19:[address] [facility] [address] [facility] PANEL ESTIMATED GFR 2020-05-04 19:19:00 [facility] [facility] [[facility]] CULTURE, URINE, 2017-08-27 00:00:00 [facility] [[facility]] CULTURE, URINE, 2017-08-21 00:00:00 [facility] [[facility]] CULTURE, URINE, 2017-06-09 00:00:00 [facility] History of [facility]le [facility] of Hysteroscopy [facility] With Endometrial Ablation CHILO - Endometrial laser [facility] ablation Limbal stem cell [facility] transplantation ORIF - Open reduction and [facility] [place] internal fixation of fracture Tendon operation [facility] Plan of Care Planned Activity Planned Date Details Comments Source Future Scheduled 2022-08-18 Screening for [facility] Test 00:24:17 malignant neoplasm of colon (procedure) [code = 622500117] Future Scheduled 2022-08-18 Screening for [facility] Test 00:24:17 malignant neoplasm of colon (procedure) [code = 032695381] Future Scheduled 2022-08-18 Screening for [facility] Test 00:24:17 malignant neoplasm of colon (procedure) [code = 009305933] Future Scheduled 2022-08-18 Pneumococcal Vaccine: [facility] Test 00:24:17 Pediatrics (0 to 5 Years) and At-Risk Patients (6 to 64 Years) (1 - PCV) [code = Pneumococcal Vaccine: Pediatrics (0 to 5 Years) and At-Risk Patients (6 to 64 Years) (1 - PCV)] Future Scheduled 2022-08-18 Hepatitis C screening [facility] Test 00:24:17 (procedure) [code = 489739797] Future Scheduled 2022-08-18 Screening for [facility] Test 00:24:17 malignant neoplasm of cervix (procedure) [code = 616571416] Future Scheduled 2022-08-18 BREAST CANCER [facility] Test 00:24:17 SCREENING [code = BREAST CANCER SCREENING] Future Scheduled 2022-08-18 Screening for [facility] Test 00:24:17 malignant neoplasm of colon (procedure) [code = 347933124] Future Scheduled 2022-08-18 Screening for [facility] Test 00:24:17 malignant neoplasm of colon (procedure) [code = 086086875] Future Scheduled 2022-08-18 SHINGLES VACCINES (1 Met [facility] Test 00:24:17 of 2) [code = SHINGLES VACCINES (1 of 2)] Future Scheduled 2022-08-18 HEPATITIS B VACCINES Met [facility] Test 00:24:17 (1 of 3 - Risk 3-dose series) [code = HEPATITIS B VACCINES (1 of 3 - Risk 3-dose series)] Future Scheduled 2022-08-18 COVID-19 VACCINE (2 - [facility] Test 00:24:17 Booster for Joel series) [code = COVID-19 VACCINE (2 - Booster for Joel series)] Future Scheduled 2022-08-18 INFLUENZA VACCINE [facility] Test 00:24:17 [code = INFLUENZA VACCINE] Future Scheduled 2022-07-17 Screening for [facility] Test 12:04:55 malignant neoplasm of colon (procedure) [code = 861865721] Future Scheduled 2022-07-17 Screening for [facility] Test 12:04:55 malignant neoplasm of colon (procedure) [code = 862333564] Future Scheduled 2022-07-17 Screening for [facility] Test 12:04:55 malignant neoplasm of colon (procedure) [code = 855992505] Future Scheduled 2022-07-17 Pneumococcal Vaccine: [facility] Test 12:04:55 Pediatrics (0 to 5 Years) and At-Risk Patients (6 to 64 Years) (1 - PCV) [code = Pneumococcal Vaccine: Pediatrics (0 to 5 Years) and At-Risk Patients (6 to 64 Years) (1 - PCV)] Future Scheduled 2022-07-17 Hepatitis C screening [facility] Test 12:04:55 (procedure) [code = 018462722] Future Scheduled 2022-07-17 SHINGLES VACCINES (1 Met [facility] Test 12:04:55 of 2) [code = SHINGLES VACCINES (1 of 2)] Future Scheduled 2022-07-17 Screening for [facility] Test 12:04:55 malignant neoplasm of cervix (procedure) [code = 250681630] Future Scheduled 2022-07-17 BREAST CANCER [facility] Test 12:04:55 SCREENING [code = BREAST CANCER SCREENING] Future Scheduled 2022-07-17 Screening for [facility] Test 12:04:55 malignant neoplasm of colon (procedure) [code = 980198591] Future Scheduled 2022-07-17 Screening for [facility] Test 12:04:55 malignant neoplasm of colon (procedure) [code = 837146938] Future Scheduled 2022-07-17 HEPATITIS B VACCINES Met [facility] Test 12:04:55 (1 of 3 - Risk 3-dose series) [code = HEPATITIS B VACCINES (1 of 3 - Risk 3-dose series)] Future Scheduled 2022-07-17 COVID-19 VACCINE (2 - [facility] Test 12:04:55 Booster for Joel series) [code = COVID-19 VACCINE (2 - Booster for Joel series)] Future Scheduled 2022-07-17 INFLUENZA VACCINE [facility] Test 12:04:55 [code = INFLUENZA VACCINE] Future Scheduled 2022-02-01 Pneumococcal Vaccine: [facility] Test 18:59:30 Pediatrics (0 to 5 Years) and At-Risk Patients (6 to 64 Years) (1 - PCV) [code = Pneumococcal Vaccine: Pediatrics (0 to 5 Years) and At-Risk Patients (6 to 64 Years) (1 - PCV)] Future Scheduled 2022-02-01 Hepatitis C screening [facility] Test 18:59:30 (procedure) [code = 078588275] Future Scheduled 2022-02-01 SHINGLES VACCINES (1 Met [facility] Test 18:59:30 of 2) [code = SHINGLES VACCINES (1 of 2)] Future Scheduled 2022-02-01 Screening for [facility] Test 18:59:30 malignant neoplasm of cervix (procedure) [code = 014915146] Future Scheduled 2022-02-01 BREAST CANCER [facility] Test 18:59:30 SCREENING [code = BREAST CANCER SCREENING] Future Scheduled 2022-02-01 COLONOSCOPY SCREENING [facility] Test 18:59:30 [code = COLONOSCOPY SCREENING] Future Scheduled 2022-02-01 HEPATITIS B VACCINES Met [facility] Test 18:59:30 (1 of 3 - Risk 3-dose series) [code = HEPATITIS B VACCINES (1 of 3 - Risk 3-dose series)] Future Scheduled 2022-02-01 COVID-19 VACCINE (2 - [facility] Test 18:59:30 Booster for Joel series) [code = COVID-19 VACCINE (2 - Booster for Joel series)] Future Scheduled 2022-02-01 INFLUENZA VACCINE [facility] Test 18:59:30 [code = INFLUENZA VACCINE] Future Scheduled 2022-02-01 Pneumococcal Vaccine: [facility] Test 18:59:30 Pediatrics (0 to 5 Years) and At-Risk Patients (6 to 64 Years) (1 - PCV) [code = Pneumococcal Vaccine: Pediatrics (0 to 5 Years) and At-Risk Patients (6 to 64 Years) (1 - PCV)] Future Scheduled 2022-02-01 Hepatitis C screening [facility] Test 18:59:30 (procedure) [code = 843460240] Future Scheduled 2022-02-01 SHINGLES VACCINES (1 Met [facility] Test 18:59:30 of 2) [code = SHINGLES VACCINES (1 of 2)] Future Scheduled 2022-02-01 Screening for [facility] Test 18:59:30 malignant neoplasm of cervix (procedure) [code = 676657572] Future Scheduled 2022-02-01 BREAST CANCER [facility] Test 18:59:30 SCREENING [code = BREAST CANCER SCREENING] Future Scheduled 2022-02-01 COLONOSCOPY SCREENING [facility] Test 18:59:30 [code = COLONOSCOPY SCREENING] Future Scheduled 2022-02-01 HEPATITIS B VACCINES Met [facility] Test 18:59:30 (1 of 3 - Risk 3-dose series) [code = HEPATITIS B VACCINES (1 of 3 - Risk 3-dose series)] Future Scheduled 2022-02-01 COVID-19 VACCINE (2 - [facility] Test 18:59:30 Booster for Joel series) [code = COVID-19 VACCINE (2 - Booster for Joel series)] Future Scheduled 2022-02-01 INFLUENZA VACCINE [facility] Test 18:59:30 [code = INFLUENZA VACCINE] Future Scheduled 2022-02-01 Pneumococcal Vaccine: [facility] Test 18:59:30 Pediatrics (0 to 5 Years) and At-Risk Patients (6 to 64 Years) (1 - PCV) [code = Pneumococcal Vaccine: Pediatrics (0 to 5 Years) and At-Risk Patients (6 to 64 Years) (1 - PCV)] Future Scheduled 2022-02-01 Hepatitis C screening [facility] Test 18:59:30 (procedure) [code = 519117416] Future Scheduled 2022-02-01 SHINGLES VACCINES (1 Met [facility] Test 18:59:30 of 2) [code = SHINGLES VACCINES (1 of 2)] Future Scheduled 2022-02-01 Screening for [facility] Test 18:59:30 malignant neoplasm of cervix (procedure) [code = 473322395] Future Scheduled 2022-02-01 BREAST CANCER [facility] Test 18:59:30 SCREENING [code = BREAST CANCER SCREENING] Future Scheduled 2022-02-01 COLONOSCOPY SCREENING [facility] Test 18:59:30 [code = COLONOSCOPY SCREENING] Future Scheduled 2022-02-01 HEPATITIS B VACCINES Met [facility] Test 18:59:30 (1 of 3 - Risk 3-dose series) [code = HEPATITIS B VACCINES (1 of 3 - Risk 3-dose series)] Future Scheduled 2022-02-01 COVID-19 VACCINE (2 - [facility] Test 18:59:30 Booster for Joel series) [code = COVID-19 VACCINE (2 - Booster for Joel series)] Future Scheduled 2022-02-01 INFLUENZA VACCINE Method [facility] Test 18:59:30 [code = INFLUENZA VACCINE] Future Scheduled 2022-02-01 Pneumococcal Vaccine: [facility] Test 18:59:30 Pediatrics (0 to 5 Years) and At-Risk Patients (6 to 64 Years) (1 - PCV) [code = Pneumococcal Vaccine: Pediatrics (0 to 5 Years) and At-Risk Patients (6 to 64 Years) (1 - PCV)] Future Scheduled 2022-02-01 Hepatitis C screening [facility] Test 18:59:30 (procedure) [code = 282352196] Future Scheduled 2022-02-01 SHINGLES VACCINES (1 Met [facility] Test 18:59:30 of 2) [code = SHINGLES VACCINES (1 of 2)] Future Scheduled 2022-02-01 Screening for [facility] Test 18:59:30 malignant neoplasm of cervix (procedure) [code = 745572884] Future Scheduled 2022-02-01 BREAST CANCER [facility] Test 18:59:30 SCREENING [code = BREAST CANCER SCREENING] Future Scheduled 2022-02-01 COLONOSCOPY SCREENING [facility] Test 18:59:30 [code = COLONOSCOPY SCREENING] Future Scheduled 2022-02-01 HEPATITIS B VACCINES Met [facility] Test 18:59:30 (1 of 3 - Risk 3-dose series) [code = HEPATITIS B VACCINES (1 of 3 - Risk 3-dose series)] Future Scheduled 2022-02-01 COVID-19 VACCINE (2 - [facility] Test 18:59:30 Booster for Joel series) [code = COVID-19 VACCINE (2 - Booster for Joel series)] Future Scheduled 2022-02-01 INFLUENZA VACCINE Method [facility] Test 18:59:30 [code = INFLUENZA VACCINE] Future Scheduled 2022-02-01 Pneumococcal Vaccine: [facility] Test 18:59:30 Pediatrics (0 to 5 Years) and At-Risk Patients (6 to 64 Years) (1 - PCV) [code = Pneumococcal Vaccine: Pediatrics (0 to 5 Years) and At-Risk Patients (6 to 64 Years) (1 - PCV)] Future Scheduled 2022-02-01 Hepatitis C screening [facility] Test 18:59:30 (procedure) [code = 312613585] Future Scheduled 2022-02-01 SHINGLES VACCINES (1 Met [facility] Test 18:59:30 of 2) [code = SHINGLES VACCINES (1 of 2)] Future Scheduled 2022-02-01 Screening for [facility] Test 18:59:30 malignant neoplasm of cervix (procedure) [code = 560920213] Future Scheduled 2022-02-01 BREAST CANCER [facility] Test 18:59:30 SCREENING [code = BREAST CANCER SCREENING] Future Scheduled 2022-02-01 COLONOSCOPY SCREENING [facility] Test 18:59:30 [code = COLONOSCOPY SCREENING] Future Scheduled 2022-02-01 HEPATITIS B VACCINES Met [facility] Test 18:59:30 (1 of 3 - Risk 3-dose series) [code = HEPATITIS B VACCINES (1 of 3 - Risk 3-dose series)] Future Scheduled 2022-02-01 COVID-19 VACCINE (2 - [facility] Test 18:59:30 Booster for Joel series) [code = COVID-19 VACCINE (2 - Booster for Joel series)] Future Scheduled 2022-02-01 INFLUENZA VACCINE [facility] Test 18:59:30 [code = INFLUENZA VACCINE] Future Scheduled 2022-02-01 Pneumococcal Vaccine: [facility] Test 18:59:30 Pediatrics (0 to 5 Years) and At-Risk Patients (6 to 64 Years) (1 - PCV) [code = Pneumococcal Vaccine: Pediatrics (0 to 5 Years) and At-Risk Patients (6 to 64 Years) (1 - PCV)] Future Scheduled 2022-02-01 Hepatitis C screening [facility] Test 18:59:30 (procedure) [code = 316530762] Future Scheduled 2022-02-01 SHINGLES VACCINES (1 Met [facility] Test 18:59:30 of 2) [code = SHINGLES VACCINES (1 of 2)] Future Scheduled 2022-02-01 Screening for [facility] Test 18:59:30 malignant neoplasm of cervix (procedure) [code = 409103272] Future Scheduled 2022-02-01 BREAST CANCER [facility] Test 18:59:30 SCREENING [code = BREAST CANCER SCREENING] Future Scheduled 2022-02-01 COLONOSCOPY SCREENING [facility] Test 18:59:30 [code = COLONOSCOPY SCREENING] Future Scheduled 2022-02-01 HEPATITIS B VACCINES Met [facility] Test 18:59:30 (1 of 3 - Risk 3-dose series) [code = HEPATITIS B VACCINES (1 of 3 - Risk 3-dose series)] Future Scheduled 2022-02-01 COVID-19 VACCINE (2 - [facility] Test 18:59:30 Booster for Joel series) [code = COVID-19 VACCINE (2 - Booster for Joel series)] Future Scheduled 2022-02-01 INFLUENZA VACCINE [facility] Test 18:59:30 [code = INFLUENZA VACCINE] Future Scheduled 2022-02-01 Pneumococcal Vaccine: [facility] Test 18:59:30 Pediatrics (0 to 5 Years) and At-Risk Patients (6 to 64 Years) (1 - PCV) [code = Pneumococcal Vaccine: Pediatrics (0 to 5 Years) and At-Risk Patients (6 to 64 Years) (1 - PCV)] Future Scheduled 2022-02-01 Hepatitis C screening [facility] Test 18:59:30 (procedure) [code = 421246020] Future Scheduled 2022-02-01 SHINGLES VACCINES (1 Met [facility] Test 18:59:30 of 2) [code = SHINGLES VACCINES (1 of 2)] Future Scheduled 2022-02-01 Screening for [facility] Test 18:59:30 malignant neoplasm of cervix (procedure) [code = 455741807] Future Scheduled 2022-02-01 BREAST CANCER [facility] Test 18:59:30 SCREENING [code = BREAST CANCER SCREENING] Future Scheduled 2022-02-01 COLONOSCOPY SCREENING [facility] Test 18:59:30 [code = COLONOSCOPY SCREENING] Future Scheduled 2022-02-01 HEPATITIS B VACCINES Met [facility] Test 18:59:30 (1 of 3 - Risk 3-dose series) [code = HEPATITIS B VACCINES (1 of 3 - Risk 3-dose series)] Future Scheduled 2022-02-01 COVID-19 VACCINE (2 - [facility] Test 18:59:30 Booster for Joel series) [code = COVID-19 VACCINE (2 - Booster for Joel series)] Future Scheduled 2022-02-01 INFLUENZA VACCINE Method [facility] Test 18:59:30 [code = INFLUENZA VACCINE] Future Scheduled 2021-10-19 COVID-19 VACCINE (#1) [facility] Test 10:53:01 [code = COVID-19 VACCINE (#1)] Future Scheduled 2021-10-19 Pneumococcal Vaccine: [facility] Test 10:53:01 Pediatrics (0 to 5 Years) and At-Risk Patients (6 to 64 Years) (1 - PCV) [code = Pneumococcal Vaccine: Pediatrics (0 to 5 Years) and At-Risk Patients (6 to 64 Years) (1 - PCV)] Future Scheduled 2021-10-19 [facility] C screening [facility] Test 10:53:01 (procedure) [code = 051835802] Future Scheduled 2021-10-19 SHINGLES VACCINES ([facility] 10:53:01 of 2) [code = SHINGLES VACCINES (1 of 2)] Future Scheduled 2021-10-19 Screening for [facility] Test 10:53:01 malignant neoplasm of cervix (procedure) [code = 653672860] Future Scheduled 2021-10-19 BREAST CANCER [facility] Test 10:53:01 SCREENING [code = BREAST CANCER SCREENING] Future Scheduled 2021-10-19 COLONOSCOPY SCREENING Me [facility] Test 10:53:01 [code = COLONOSCOPY SCREENING] Future Scheduled 2021-10-19 HEPATITIS B VACCINES Met [facility] Test 10:53:01 (1 of 3 - Risk 3-dose series) [code = HEPATITIS B VACCINES (1 of 3 - Risk 3-dose series)] Future Scheduled 2021-10-19 [facility]ACCINE [facility] 10:53:01 [code = INFLUENZA VACCINE] Future Scheduled DIABETES: RETINAL EYE [facility] EXAM [code = DIABETES: RETINAL EYE EXAM] Future Scheduled DIABETIC FOOT EXAM [facility] Test [code = DIABETIC FOOT EXAM] Future Scheduled URINE MICROALBUMIN [facility] Test [code = URINE MICROALBUMIN] Future Scheduled COVID-19 VACCINE (1) [facility] [code = COVID-19 VACCINE (1)] Future Scheduled [facility] (procedure) [code = 294275906] Future Scheduled Scre[facility] for [facility] Test malignant neoplasm of cervix (procedure) [code = 188415713] Future Scheduled BREAST CANCER [facility] Test SCREENING [code = BREAST CANCER SCREENING] Future Scheduled [facility]COPY [facility] [code = COLONOSCOPY SCREENING] Future Scheduled SHINGLES VACCINES (#[facility]) [facility] [code = SHINGLES VACCINES (#1)] Future Scheduled INFLUENZA VACCINE [facility] [code = INFLUENZA VACCINE] Encounters Start End Encounter Admission Attending Care Care Encounter Source Date/Time Date/Time Type Type Clinicians Facility Department ID 2022-01-14 Outpatient Travis, STLMLC STLMLC [id number] Common 08:35:01 [facility] 2021-11-27 Outpatient [facility] [id number] [place] 10:51:[id number] [place] [address] 2021-10-16 Outpatient Travis, STLMLC STLMLC Common 14:20:00 Luciano [facility] 2021-08-20 Outpatient Travis, STLMLC STLMLC Common 08:10:01 Luciano [facility] 2021-08-16 Outpatient Travis, STLMLC STLMLC Common 15:42:00 Luciano [facility] 2021-07-10 Outpatient Travis, STLMLC STLMLC Common 08:19:00 Luciano [facility] 2021-05-08 Outpatient Travis, STLMLC STLMLC Common 15:07:00 [facility] 2021-03-29 Outpatient DERESKA, [facility] [id number] [place] 16:38:20 [facility] 2021-03-14 Outpatient DERESKA, [facility] [id number] [place] 10:48:45 [facility] 2021-03-14 Outpatient Travis, STLMLC STLMLC Common 09:24:01 [facility] 2021-03-07 Outpatient Travis, STLMLC STLMLC Common 14:38:44 [facility] 2021-03-07 Outpatient Travis, STLMLC STLMLC Common 14:34:38 [facility] 2021-03-07 Outpatient Travis, STLMLC STLMLC Common 14:19:07 Luciano [facility] 2021-03-07 Outpatient Travis, STLMLC STLMLC [id number] Common 14:06:31 Luciano [facility] 2021-03-07 Outpatient Travis, STLMLC STLMLC [id number] Common 14:06:01 Luciano [id number] [facility] 2021-03-07 Outpatient Travis, STLMLC STLMLC Common 14:05:29 Luciano [id number] [facility] 2021-03-07 Outpatient Travis, STLMLC STLMLC [id number] Common 13:56:00 Luciano 93443 [facility] 2021-03-07 Outpatient Travis, STLMLC STLMLC Common 13:49:17 Luciano [id number] [facility] 2021-03-07 Outpatient Travis, STLMLC STLMLC Common 12:29:42 Luciano 16957 [facility] 2021-03-07 Outpatient Travis, STLMLC STLMLC Common 12:27:48 Luciaon 68580 [facility] 2021-03-07 Outpatient Travis, STLMLC STLMLC Common 12:27:16 Luciano [id number] [facility] 2021-03-07 Outpatient Travis, STLMLC STLMLC Common 12:25:19 Luciano 11899 [facility] 2021-03-07 Outpatient Travis, STLMLC STLMLC Common 12:24:57 Luciano 13444 [facility] 2021-03-07 Outpatient Travis, STLMLC STLMLC Common 12:21:52 Luciano 53064 [facility] 2021-03-07 Outpatient Travis, STLMLC STLMLC Common 12:21:15 Luciano 70106 [facility] 2021-03-07 Outpatient Travis, STLMLC STLMLC Common 12:20:49 Luciano [id number] [facility] 2021-03-07 Outpatient Travis, STLMLC STLMLC Common 12:19:53 Luciano 88094 [facility] 2021-03-07 Outpatient Travis, [facility]ML[facility] [id number] Common 11:37:00 Luciano 94554 [facility] 2021-03-07 Outpatient Travis, STLML[facility] [id number] Common 11:36:58 Luciano 59215 [facility] 2021-03-07 Outpatient Travis, STLML[facility] [id number] Common 11:33:09 Luciano 57284 [facility] 2021-03-07 Outpatient Travis, STLMLC [facility] [id number] Common 11:31:11 Luciano 17170 [facility] 2021-03-07 Outpatient Travis, STLC [facility] [id number] Common 11:06:28 Luciano 04725 [facility] 2021-01-10 [facility] [id number] [place] 10:36:54 [facility] 2021-01-10 [facility] [id number] [place] 09:52:14 [facility] 2020-12-12 Emergency [facility] [id number] Univers 09[facility]13:05 [facility] 2020-11-24 [facility] [id number] [place] 15:05:59 [facility] 2020-11-24 [facility] [id number] [place] 14:12:16 [facility] 2020-11-24 [facility] [id number] [place] 13:57:46 [facility] 2020-11-13 [facility] [id number] [place] 12:16:17 [facility] 2022-05-31 2022-05-31 Telephone Fang [facility] [id number] [facility] 00:00:00 00:00:00 [employer] [id number] it y of COATS [id number] Lionel as DAMIAN?BLEA [id number] [address] MEDICAL OFFICE BUILDING 2022-05-09 2022-05-09 Telephone Chavez [facility] [id number] Univers 00:00:00 00:00:00 [facility] [id number] it y yomi [facility] [id number] Lionel as DAMIAN?BLEA [id number] Me kori [address] MEDICAL OFFICE BUILDING 2022-04-26 2022-04-26 Outpatient [facility] [id number] Lyle 17:19:36 17:19:36 [address] [place] 2022-04-24 2022-04-24 [facility] [id number] [place] 11:00:00 11:00:00 [facility] 2022-04-15 2022-04-15 Outpatient [facility] [id number] Lyle 15:35:32 15:35:32 0306 [address] [place] 2022-04-01 2022-04-01 Outpatient [facility] [id number] Lyle 15:48:00 15:48:00 0220 [address] [place] 2022-03-13 2022-03-13 (TEL) STLMLC STLMLC [id number] Co mmon 00:00:00 00:00:00 [facility] 2022-02-18 2022-02-18 (TEL) STLMLC STLMLC [id number] Co mmon 00:00:00 00:00:00 [facility] 2022-02-08 2022-02-08 OFFICE STLMLC STLMLC [id number] Co mmon 00:00:00 00:00:00 VISIT EST Spir it PT LEVEL 3 [facility] 2022-02-08 2022-02-08 (TEL) STLMLC STLMLC [id number] Co mmon 00:00:00 00:00:00 [facility] 2022-01-24 2022-01-24 [facility] Cristofer [id number] Methodi 06:31:00 23:59:00 Encounter Tuyet Robin [id number] 3.430.2.7 Hospit a .3.656052 l .8 2022-01-24 2022-01-24 [facility] Fish, 1.2.840.1 [id number] Methodi 06:31:00 23:59:00 Encounter Tuyet H. 45043.1.[address] 3.430.2.7 Hospit a .3.383151 l .8 2022-01-24 2022-01-24 Surgery Fish, 1.2.840.1 [id number] Methodi 09:50:00 11:00:00 Tuyet H. 46471.1.1 654 s t 3.430.2.7 Hospit a .3.032040 l .8 2022-01-24 2022-01-24 Surgery Fish, 1.2.840.1 [id number] 1947 Methodi 09:50:00 11:00:00 Tuyet H. 49945.1.1 654 s t 3.430.2.7 Hospit a .3.189423 l .8 2022-01-24 2022-01-24 [facility] 1.2.840.1 [id number] Methodi 08:57:00 10:07:00 [place] 38960.1.[address] Faustino 3.430.2.7 Hosp ruiz .3.160824 l .8 2022-01-24 2022-01-24 Anesthesia [facility], 1.2.840.1 [id number] Methodi 08:57:00 10:07:00 [place] 45966.1.[address] Faustino 3.430.2.7 Hosp ruiz .3.277478 l .8 2022-01-24 2022-01-24 Travel 1.2.840.1 1.2.805.866 0792 [id number] Methodi 00:00:00 00:00:[address] 3.430.2.7 0.2.7.3.698 Ho spita .3.816278 084.8 l .8 2022-01-24 2022-01-24 Travel 1.2.840.1 1.2.917.139 9662 [id number] Methodi 00:00:00 00:00:[address] 3.430.2.7 0.2.7.3.698 Ho idalia .3.480353 084.8 l .8 2022-01-16 2022-01-16 OFFICE STLC STLC [id number] Co mmon 00:00:00 00:00:00 VISIT Spirit ESTAB PT - CHI LEVEL 4 [facility] 2022-01-01 2022-01-01 (TEL) STLMLC STLC [id number] Co mmon 00:00:00 00:00:00 Spirit - [facility] 2021-12-21 2021-12-21 (TEL) [facility] [id number] Co mmon 00:00:00 00:00:[address] [facility] 2021-12-05 2021-12-05 Outpatient [facility] [id number] [place] 14:50:00 14:50:00 [facility] 2021-11-14 2021-11-14 Telephone [facility] 1.2.011.647 [id number] Univers 00:00:00 00:00:00 [facility] [place] 350.1.13.10 it y of [place] 4.2.7.2.686 Lionel as DAMIAN?BLEA [phone] [address] OFFICE BUILDING 2021-10-31 2021-10-31 Office Michael [facility] 1.2.571.459 [id number] [id number] [place] 13:30:00 14:24:45 Visit Shefali SUGAR 350.1.13.58 Mikel alth [place] 9.2.7.2.686 PLAZA 0 [phone] AND 5 WOMENS 2021-10-24 2021-10-24 Procedure Lavern [facility] 1.2.840.114 [id number] [place] 13:40:00 14:27:30 Visit Andressa SUGAR 350.1.13.58 He alth [place] 9.2.7.2.686 PLAZA 8 [phone] AND 5 WOMENS 2021-10-17 2021-10-17 OFFICE STLMLC STLMLC [id number] Co mmon 00:00:00 00:00:00 VISIT [facility] LEVEL 4 [facility] 2021-10-11 2021-10-11 (TEL) STLMLC STLMLC [id number] Co mmon 00:00:00 00:00:00 [facility] 2021-10-10 2021-10-10 Outpatient R CHAVEZ [facility] [id number] Univers 13:30:00 14:23:09 [facility] 2021-10-10 2021-10-10 [facility] 1.2.840.114 [id number] Univers 13:30:00 14:23:09 Visit [facility] 350.1.13.10 it y [facility] 4.2.7.2.686 Lionel as DAMIAN?BLEA [phone] [address] OFFICE BUILDING 2021-10-09 2021-10-09 (TEL) STLMLC STLMLC [id number] Co mmon 00:00:00 00:00:00 [facility] 2021 2021 (TEL) STLMLC STLMLC [id number] Co mmon 00:00:00 00:00:00 [facility] 2021-08-14 2021-08-14 (TEL) STLMLC STLMLC [id number] Co mmon 00:00:00 00:00:00 [facility] 2021-08-07 2021-08-07 [facility] [id number] Univers 15:30:00 15:30:00 [facility] 2021-07-23 2021-07-23 Telephone [facility] 1.2.484.795 [id number] Univers 00:00:00 00:00:00 [facility] 350.1.13.10 it y of [place] 4.2.7.2.686 Lionel as DAMIAN?BLEA [phone] [address] MEDICAL OFFICE BUILDING 2021-07-18 2021-07-18 OFFICE STLMLC STLMLC [id number] Co mmon 00:00:00 00:00:00 VISIT Spirit ESTAB PT - CHI LEVEL 4 [facility] 2021-05-29 2021-05-29 Outpatient R CHAVEZ [facility] [id number] Univers 10:30:00 10:30:00 [facility] 2021-05-28 2021-05-28 Orders Doctor AURELIO 1.2.840.114 [id number] Univers 00:00:00 00:00:00 Only Unassigned, BETY 350.1.13.10 ity [facility] 4.2.7.2.686 Lionel as [phone] [address] 2021-05-25 2021-05-25 (TEL) STLMLC STLMLC [id number] Co mmon 00:00:00 00:00:00 [facility] 2021-05-14 2021-05-14 (TEL) STLMLC STLMLC [id number] Co mmon 00:00:00 00:00:00 [facility] 2021-04-16 2021-04-[address] Spence [facility] 1.2.840.1 14 [id number] [place] 00:00:00 00:00:00 Ct Spence 350.1.13.58 [facility] 9.2.7.2.686 PLAZA 2 [phone] AND 2 WOMENS 2021-04-03 2021-04-03 Outpatient R CHAVEZ [facility] [id number] Univers 10:00:00 10:00:00 [facility] 2021-04-03 2021-04-03 OFFICE [facility] [id number] Co mmon 00:00:00 00:00:00 VISIT Spirit ESTAB PT - CHI LEVEL 4 [facility] 2021-03-26 2021-03-26 Emergency X [facility] ERT [id number] Univers 12:42:00 13:51:00 RASHMI [facility] 2021-03-26 2021-03-[address] [facility] 1.2.483.575 [id number] Univers 12:42:00 13:51:00 Rashmi PERRIN 350.1.13.10 i ty of [place] 4.2.7.2.686 [facility] [phone] [facility] [address] 2021-03-26 2021-03-26 Orders Doctor AURELIO 1.2.840.114 [id number] Univers 00:00:00 00:00:00 Only Unassigned, BETY 350.1.13.10 ity of [place] [facility] 4.2.7.2.686 [facility] [phone] [facility] 00[address] Branch 2021-03-26 2021-03-26 (TEL) STLMLC [facility] [id number] Co mmon 00:00:00 00:00:00 [facility] 2021-03-14 2021-03-[address] Spence [facility] 1.2.840.1 14 [id number] [place] 00:00:00 00:00:00 Ct Spence SUGAR 350.1.13.58 Health [place] 9.2.7.2.686 PLA[address] 6 [phone] AND 2 WOMENS 2021-03-12 2021-03-[address] Spence [facility] 1.2.840.1 14 [id number] [place] 00:00:00 00:00:00 Ct Spence SUGAR 350.1.13.58 Health [place] 9.2.7.2.686 PLAZA 7 [phone] AND 2 WOMENS 2021-03-09 2021-03-[address] Spence [facility] 1.2.840.1 14 [id number] [place] 00:00:00 00:00:00 Ct Spence SUGAR 350.1.13.58 Health [place] 9.2.7.2.686 PLAZA 4 [phone] AND 2 WOMENS 2021-03-07 2021-03-07 Outpatient R DARRYN HINDS [place] [id number] Univers 14:30:00 14:30:00 BRODY ity of [facility] 2021-03-06 2021-03-06 Telephone Chavez [place]CAMILA 1.2.849.101 [id number] Univers 00:00:00 00:00:00 [facility] HEALTH 350.1.13.10 it y of [place] 4.2.7.2.686 Lionel as DAMIAN?BLEA [phone] Hi dical [facility] [address] MEDICAL OFFICE BUILDING 2021-03-05 2021-03-05 OFFICE STLMLC STLMLC [id number] Co mmon 00:00:00 00:00:00 VISIT [facility] ESTAB PT - CHI LEVEL 4 [facility] 2021-03-05 2021-03-05 SUB ANNUAL STLMLC STLMLC [id number] Common 00:00:00 00:00:00 MCR Spirit WELLNESS - CHI VISIT [facility] 2021-03-01 2021-03-01 (TEL) STLMLC STLMLC [id number] Co mmon 00:00:00 00:00:00 [facility] 2021-02-28 2021-02-28 (TEL) STLMLC STLMLC [id number] Co mmon 00:00:00 00:00:00 [facility] 2021-02-27 2021-02-27 (TEL) STLMLC STLMLC [id number] Co mmon 00:00:00 00:00:00 [facility] 2021-02-26 2021-02-26 (TEL) STLMLC STLMLC [id number] Co mmon 00:00:00 00:00:00 [facility] 2021-01-03 2021-01-03 (TEL) STLMLC STLMLC [id number] Co mmon 00:00:00 00:00:00 [facility] 2020-12-27 2020-12-27 (TEL) STLMLC STLMLC [id number] Co mmon 00:00:00 00:00:00 [facility] 2020-12-18 2020-12-18 Hospital Radiology [facility] 1.2.840.114 [id number] Univers 10:28:59 23:59:00 Encounter MARYCHUY 350.1.13.10 ity of [facility] 4.2.7.2.686 [place] [facility] [phone] [facility] [address] 2020-12-18 2020-12-18 Outpatient R RADIOLOGY [facility] [id number] Univers 00:00:00 23:59:00 ity of [facility] 2020-12-18 2020-12-18 Orders Doctor AURELIO 1.2.840.114 [id number] Univers 00:00:00 00:00:00 Only Unassigned, BETY 350.1.13.10 ity of [place] [facility] 4.2.7.2.686 Lionel as [phone] [address] 2020-12-08 2020-12-08 Orders Doctor AURELIO 1.2.840.114 [id number] Univers 00:00:00 00:00:00 Only Unassigned, BETY 350.1.13.10 ity of [place] [facility] 4.2.7.2.686 Lionel as [phone] [address] 2020-12-07 2020-12-07 OFFICE STLMLC STLMLC [id number] Co mmon 00:00:00 00:00:00 VISIT [facility] LEVEL 4 [facility] 2020-12-07 2020-12-07 (TEL) STLMLC STLMLC [id number] Co mmon 00:00:00 00:00:00 [facility] 2020-12-06 2020-12-06 (TEL) STLMLC STLMLC [id number] Co mmon 00:00:00 00:00:00 [facility] 2020-12-05 2020-12-05 (TEL) STLMLC STLMLC [id number] Co mmon 00:00:00 00:00:00 [facility] 2020-12-04 2020-12-04 (TEL) STLMLC STLMLC [id number] Co mmon 00:00:00 00:00:00 [facility] 2020-12-04 2020-12-04 (TEL) STLMLC STLMLC [id number] Co mmon 00:00:00 00:00:00 [facility] 2020-12-03 2020-12-03 Emergency [facility] 1.2.933.575 [id number] Univers 14:18:00 16:20:00 Merlyn Perrin 350.1.13.10 ity of [place] 4.2.7.2.686 [facility] [phone] [facility] [address] 2020-12-03 2020-12-03 Orders Doctor CAREY 1.2.840.114 [id number] Univers 00:00:00 00:00:00 Only Unassigned, BETY 350.1.13.10 ity of [place] [facility] 4.2.7.2.686 [facility] [phone] [facility] 009 Branch 2020-11-27 2020-11-27 Orders Michael [facility] 1.2.256.056 [id number] [place] 00:00:00 00:00:00 Only Shefali SUGAR 350.1.13.58 He alth [place] 9.2.7.2.686 [address] 8 [phone] AND 5 WOMENS 2020-11-27 2020-11-[address] Sp[place] [facility] 1.2.840.1 14 [id number] [place] 00:00:00 00:00:00 Ct Sp[place] 350.1.13.58 [facility] [place] 9.2.7.2.686 PLA[address] 9 [phone] AND 2 WOMENS 2020-11-24 2020-11-24 Office Michael [facility] 1.2.515.228 [id number] [place] 14:14:20 15:06:05 Visit Shefali SUGAR 350.1.13.58 Mikel alth [place] 9.2.7.2.686 PLA[address] 0 [phone] AND 5 WOMENS 2020-11-10 2020-11-10 (TEL) [facility] [id number] Co mmon 00:00:00 00:00:00 Spirit [facility] 2020-10-26 2020-10-26 OFFICE STLC STLC [id number] Co mmon 00:00:00 00:00:00 VISIT Spirit ESTAB PT - CHI LEVEL 4 [facility] 2020-10-26 2020-10-26 (TEL) STLC STLC [id number] Co mmon 00:00:00 00:00:00 Spirit [facility] 2020-10-12 2020-10-12 Outpatient STLMLC STLMLC [id number] Common 00:00:00 00:00:00 [facility] 2020-09-28 2020-09-28 Documentat Nida Wheeler 1.2.840.1 [id number] Methodi 00:00:00 00:00:[address] 3.430.2.7 Hospit a .3.456747 l .8 2020-08-16 2020-08-16 [facility] 1.2.247.748 [id number] Univers 00:00:00 00:00:00 Adriana Perrin 350.1.13.10 i ty [facility] 4.2.7.2.686 [place] Profess[place] [phone] Hi dical nal [address] [place] [address] 2020-07-19 2020-07-19 [facility] [id number] Univers 09:00:00 09:00:00 ADRIANA pierce [facility] 2020-06-22 2020-06-22 Office Nida Wheeler 1.2.840.1 [id number] Methodi 09:54:22 10:40:[address] 3.430.2.7 Hospit a .3.588406 l .8 2020-06-22 2020-06-22 Travel 1.2.840.1 1.2.662.490 8684 [id number] Methodi 00:00:00 00:00:[address] 3.430.2.7 0.2.7.3.698 Ho spita .3.292005 084.8 l .8 2020-06-21 2020-06-21 Office Adriana Carney [facility] 1.2.840.11 4 [id number] [facility] 14:30:27 16:08:05 Visit Goldie Huber 350.1.13.10 ity [facility] 4.2.7.2.686 [place] [phone] Hi dical [address] 2020-06-21 2020-06-21 Outpatient R YOBANI, [facility] [id number] Univers 15:00:00 15:00:00 GOLDIE pierce of [facility] 2020-06-21 2020-06-21 Telephone [facility] 1.2.840.114 [id number] Univers 00:00:00 00:00:00 Adriana Perrin 350.1.13.10 i ty of [place] 4.2.7.2.686 Kassidy Joshi [phone] Hi dical [address] 2020-06-01 2020-06-01 Outpatient STLMLC STLMLC [id number] Common 00:00:00 00:00:00 [facility] 2020-06-01 2020-06-01 Outpatient STLMLC STLMLC [id number] Common 00:00:00 00:00:00 [facility] 2020-05-30 2020-05-30 Travel 1.2.840.1 1.2.345.529 [id number] Methodi 00:00:00 00:00:[address] 3.430.2.7 0.2.7.3.698 Ho spita .3.788147 084.8 l .8 2020-05-26 2020-05-26 Outpatient STLMLC STLMLC [id number] Common 00:00:00 00:00:00 [facility] 2020-05-17 2020-05-17 Outpatient STLMLC STLMLC [id number] Common 00:00:00 00:00:00 [facility] 2020-05-04 2020-05-05 Emergency Kingsley Corado 1.2.840.1 [id number] Methodi 13:01:00 16:43:00 Chloe Minor [address]46.1.[address] 3.430.2.7 Hospit a .3.905176 l .8 2020-05-04 2020-05-04 Travel 1.2.840.1 1.2.954.889 [id number] Methodi 00:00:00 00:00:[address] 3.430.2.7 0.2.7.3.698 Ho spita .3.509101 084.8 l .8 2020-04-14 2020-04-14 Outpatient STLMLC STLMLC [id number] Common 00:00:00 00:00:00 [facility] 2020-04-10 2020-04-10 Outpatient STLMLC STLMLC [id number] Common 00:00:00 00:00:00 [facility] 2020-03-31 2020-03-31 Outpatient STLMLC STLMLC [id number] Common 00:00:00 00:00:00 [facility] 2020-03-23 2020-03-23 Outpatient STLMLC STLMLC [id number] Common 00:00:00 00:00:00 [facility] 2020-03-23 2020-03-23 Outpatient STLMLC STLMLC [id number] Common 00:00:00 00:00:00 [facility] 2020-03-14 2020-03-14 Outpatient STLMLC STLMLC [id number] Common 00:00:00 00:00:00 [facility] 2020-03-07 2020-03-07 Outpatient STLMLC STLMLC [id number] Common 00:00:00 00:00:00 [facility] 2020-02-28 2020-02-28 Outpatient STLMLC STLMLC [id number] Common 00:00:00 00:00:00 [facility] 2020-02-24 2020-02-24 Outpatient STLMLC STLMLC [id number] Common 00:00:00 00:00:00 [facility] 2020-02-23 2020-02-23 Outpatient STLMLC STLMLC [id number] Common 00:00:00 00:00:00 [facility] 2020-02-23 2020-02-23 Outpatient STLMLC STLMLC [id number] Common 00:00:00 00:00:00 [facility] 2019-11-24 2019-11-25 Outpt Diag nullFlavo [facility] [id number] Memoria 14:28:00 04:59:00 Services r Outpatient 03 l Imaging Amador Sloan 2019-11-24 2019-11-25 Outpt Diag nullFlavo [facility] [id number] Memoria 14:28:00 04:59:00 Services r Outpatient 03 l Imaging [facility] 2019-11-24 2019-11-24 Outpatient Etelvina, MHOIP [facility] [id number] 09:28:00 23:59:00 Rena 03 Starr 2019-11-11 2019-11-11 Outpatient STLMLC STLMLC [id number] Common 00:00:00 00:00:00 [facility] 2019-11-02 2019-11-02 Outpatient STLMLC STLMLC [id number] Common 00:00:00 00:00:00 [facility] 2019-11-02 2019-11-02 Outpatient STLMLC STLMLC [id number] Common 00:00:00 00:00:00 [facility] 2019-10-27 2019-10-27 [facility] [id number] Common 14:10:00 14:10:[address] Sp[address] it Drive [facility] 2019-10-27 2019-10-27 Outpatient [facility] [id number] Common 10:59:00 10:59:00 [address] Spir it Drive [facility] 2019-10-12 2019-10-12 Outpatient [facility] [id number] Common 08:20:00 08:20:00 [address] Spir it Drive [facility] 2019-09-22 2019-09-22 Outpatient [facility] [id number] Common 08:30:00 08:30:00 [address] Spir it Drive [facility] 2019-08-10 2019-08-10 Outpatient [facility] [id number] Common 13:30:00 13:30:00 [address] [place] [address] Spir it Drive [facility] 2019-04-02 2019-04-02 Outpatient [facility] [id number] Common 15:07:00 15:07:00 [address] Spir it Drive [facility] 2019-03-16 2019-03-16 Outpatient [facility] [id number] Common 17:04:00 17:04:00 [address] [place] [address] [address] Spir it Drive [facility] 2018-12-03 2018-12-03 Outpatient [facility] [id number] Common 16:41:00 16:41:00 [address] [place] [address] [address] Spir it Drive [facility] 2018-11-18 2018-11-18 Outpatient [facility] [id number] Common 08:00:00 08:00:00 [address] [place] [address] [address] Spir it Drive [facility] 2018-07-22 2018-07-22 Outpatient [facility] [id number] Common 08:30:00 08:30:00 [address] [place] [address] [address] Spir it Drive [facility] 2018-06-10 2018-06-10 Outpatient [facility] [id number] Common 09:53:00 09:53:00 [address] Spir it Drive [facility] 2018-03-23 2018-03-23 Outpatient [facility] [id number] Common 14:00:00 14:00:00 [address] [place] [address] [address] Spir it Drive [facility] 2018-03-19 2018-03-19 Outpatient [facility] [id number] Common 10:45:00 10:45:00 [address] [place] [address] [address] Spir it Drive [facility] 2017-11-10 2017-11-10 Outpatient [facility] [id number] Common 10:15:00 10:15:00 [address] Spir it Drive [facility] 2017-11-06 2017-11-06 Outpatient [facility] [id number] Common 08:00:00 08:00:00 [address] [place] [address] Spir it Drive [facility] 2017-09-23 2017-09-23 Outpatient [facility] [id number] Common 16:07:00 16:07:00 t Smarty Ants [facility] it SimpliField [facility] 2017-09-03 2017-09-03 Appointguerita HOOPER, UTP UroGynecolo 4 [id number] [place] 11:00:00 11:00:00 t; KARISSA CLEANING gy Center [facility] KARISSA CLEANING 2017-08-27 2017-08-27 Appointguerita HOOPER, UTP UroGynecolo 4 [id number] [place] 14:10:00 14:10:00 t; KARISSA CLEANING gy Center Ph [facility] KARISSA CLEANING 2017-08-21 2017-08-21 Appointguerita HOOPER, UTP UroGynecolo 4 [id number] [place] 10:10:00 10:10:00 t; KARISSA CLEANING gy Center [facility] KARSISA CLEANING 2017-08-14 2017-08-14 Appointguerita HALHUNGOK, UTP UroGynecolo 4 [id number] [place] 11:00:00 11:00:00 t; KARISSA CLEANING gy Center Ph [facility] KARISSA CLEANING 2017-07-31 2017-07-31 Appointguerita HALROCHELLE, UTP UroGynecolo 4 [id number] [place] 14:10:00 14:10:00 t; KARISSA CLEANING gy Center [facility] KARISSA CLEANING 2017-07-24 2017-07-24 Appointguerita HALHUNGOK, UTP UroGynecolo 4 [id number] [place] 13:20:00 13:20:00 t; KARISSA CLEANING gy Center Ph [facility] KARISSA CLEANING 2017-07-17 2017-07-17 Appointmen HALBROOK, UTP UroGynecolo 4 [id number] [place] 14:10:00 14:10:00 t; KARISSA CLEANING gy Center Ph [facility] KARISSA CLEANING 2017-07-03 2017-07-03 Appointmen UROGYN1, UTP Women's [id number] [place] 09:00:00 09:00:00 t; [facility] UROGYN1, [facility] LAVERN 2017-06-26 2017-06-26 [facility] BRADFORDROCHELLE, [facility] UroGynecolo 4 [id number] [place] 09:00:00 09:00:00 t; KARISSA CLEANING [facility] sadi FELDERHUNGSirena [facility] mar CLEANING NP 2017-06-25 2017-06-25 Outpatient [facility] [id number] Common 09:30:00 09:30:00 t Smarty Ants [facility] it SimpliField [facility] 2017-06-19 2017-06-19 Appointguerita HOOPER, [facility] UroGynecolo 4 [id number] [place] 15:20:00 15:20:00 t; KARISSA CLEANING gy Center brycekayla BRADFORDHUNGSirena [facility] mar CLEANING NP 2017-06-12 2017-06-12 Appointguerita HOOPER, [facility] UroGynecolo 4 [id number] [place] 13:20:00 13:20:00 t; KARISSA CLEANING [facility] brycekayla BRADFORDHUNGJARRETT [facility] mar CLEANING NP 2017-06-09 2017-06-09 [facility] MICHAEL, [facility] UTP [id number] [place] 09:20:00 09:20:00 t; KARISSA CLEANING Phys ici HALBROOK, ans KARISSA CLEANING 2016-12-19 2016-12-19 Appointguerita HOOPER, UTP UTP [id number] [place] 10:10:00 10:10:00 t; KARISSA CLEANING Phys ici HALBROOK, ans SHEFALI, [employer] 2016-11-28 2016-11-28 Appointmen MICHAEL, [facility] UTP [id number] [place] 10:10:00 10:10:00 t; KARISSA CLEANING Phys ici HALBROOK, ans SHEFALI, NET FINISHER 2016-09-12 2016-09-12 Appointmen HALROCHELLE, UTP UTP [id number] UT 13:20:00 13:20:00 t; KARISSA CLEANING Phys ici HALBROOK, ans SHEFALI, NET FINISHER 2016-04-01 2016-04-[address] [facility] [id number] Memoria 17:43:00 23:41:00 r Amador 02 l [place] Judith nn 2016-04-01 2016-04-01 Emergency nullFlavo [facility] [id number] Memoria 17:43:00 23:41:00 r Amador 02 l [place] Judith 2016-04-01 2016-04-01 Outpatient Julio C [place] [facility] [id number] 11:43:00 17:41:00 Ina 02 2015-11-30 2015-11-30 [facility] BRADFORDROCHELLE, [facility] UTP [id number] [place] 09:00:00 09:00:00 t; KARISSA CLEANING Phys [facility] MICHAEL, ans KARISSA CLEANING 2015-10-20 2015-10-20 [facility] LAVERN, [facility] UTP [id number] UT 10:10:00 10:10:00 t; Preeti CARTER ans NINA, M.D. 2015-09-21 2015-09-21 [facility] UTP [id number] UT 13:00:00 13:00:00 t; Preeti CARTER ans NINA, M.D. 2015-08-10 2015-08-10 OBS Day nullFlavo [facility] [id number] Memoria 12:24:00 19:42:00 Surgery r [place] 00 l [place] 2015-08-10 2015-08-10 OBS Day nullFlavo [facility] [id number] Memoria 12:24:00 19:42:00 Surgery r [place] 00 l [place] 2015-08-10 2015-08-10 Outpatient CASSIE PuckettSAntony S [id number] 07:24:00 14:42:00 Andressa Guerrero 2015-08-10 2015-08-10 [facility] RHIANNON PUCKETT UTP [id number] UT 09:30:00 09:30:00 t; Preeti CARTER ans NINA, M.D. 2015-08-02 2015-08-02 Geovanny PUCKETT, RHIANNON UTP [id number] UT 08:30:00 08:30:00 t; Preeti CARTER ans NINA, M.D. 2015-07-05 2015-07-05 RHIANNON Escalera UTP [id number] UT 08:30:00 08:30:00 t; ANDRESSA, M.mar Hauser M.D. 2015-04-28 2015-04-29 Outpt Diag nullFlavo [facility] [id number] Memoria 15:30:00 04:59:00 Services r Outpatient 02 l Imaging - Randyrakel Elise 2015-04-28 2015-04-29 Outpt Diag nullFlavo [facility] [id number] Memoria 15:30:00 04:59:00 Services r Outpatient 02 l Imaging - Randy n Gosia 2015-04-28 2015-04-28 Outpatient Jordenlindenmarlin, [id number] 10:30:00 23:59:00 Andressa [id number] Holfelicianoappmile [id number] 2011-09-02 2011-09-02 [place] [id number] Memoria 08:48:00 08:48:00 00 antony English 2011-09-02 2011-09-02 [id number] Memoria 08:48:00 08:48:00 00 l [place] Results Test Description Test Time Test Comments Results Result Comments Source CULTURE, URINE 2022-04-18 SPECIMEN NUMBER: 11:58:21 [id number] CULTURE, URINE SPECIMEN NUMBER: [id number] SPECIMEN COMMENT: URINE SOURCE: URINE REPORT STATUS: FINAL FINAL REPORT: 04/18/2022 10-50,000 CFU/ML UROGENITAL ENZO PRESENT NO COMMON PATHOGENS [facility] has important pathology staff changes effective 04/10/2022. New pathology staff will provide uninterrupted, excellent patient care and clinical consultation. See URL: [email or web address] UNLESS OTHERWISE INDICATED, ALL TESTING PERFORMED AT [facility] [address] [place] [id number] HANDY WORKER: LIBIA HEMPHILL M.D. CLIA NUMBER [id number] [facility] [place]. [id number] CULTURE, URINE 2022-04-04 SPECIMEN NUMBER: 16:03:59 [id number] CULTURE, URINE SPECIMEN NUMBER: [id number] SOURCE: URINE REPORT STATUS: FINAL ISOLATE NUMBER [...] nalis and Trichomonas vaginalis nucle ic acid. [facility] has important patho logy staff changes effective 04/10. New pathology staff will provide uninterrupted, excellent patient care and clinical co nsultation. See URL: [email or web address]. UNLESS OTHERWISE INDIC ATED, [facility] [place] [address] 4 HANDY WORKER: ALEX LIAO M.D. [place] NUMBER [id number] [facility] [place] [id number] POC [id number] 14:39:00 Test Item Value Reference Range Interpretation Comments POC glucose (test code = 237 mg/dL 65-99 H Ope rator Name: [facility] 78836-5) AdamDevice ID: [id number] able: [facility] Notified cilnical scientist Interpretation (test Abnormal code = 90603-5) [facility]2022-12-15 14:39:00 Test Item Value Reference Range Interpretation Comments POC glucose (test code = 237 mg/dL 65-99 H Ope rator Name: [facility] 53165-7) AdamDevice ID: [id number] able: [facility] Notified cilnical scientist Interpretation (test Abnormal code = 59456-2) [facility] [id number] 14:39:00 Test Item Value Reference Range Interpretation Comments POC glucose (test code = 237 mg/dL 65-99 H Ope rator Name: [facility] 73695-9) AdamDevice ID: [id number] able: [facility] Notified cilnical scientist Interpretation (test Abnormal code = 00975-2) [facility]2022-12-15 14:39:00 Test Item Value Reference Range Interpretation Comments POC glucose (test code = 237 mg/dL 65-99 H Ope rator Name: [facility] 98747-9) AdamDevice ID: [id number] able: TM Notified cilnical scientist Interpretation (test Abnormal code = 51895-4) [facility]2022-12-15 14:39:00 Test Item Value Reference Range Interpretation Comments POC glucose (test code = 237 mg/dL 65-99 H Ope rator Name: [facility] 17286-2) AdamDevice ID: [id number] able: TM Notified cilnical scientist Interpretation (test Abnormal code = 47657-7) [facility]2022-12-15 14:39:00 Test Item Value Reference Range Interpretation Comments POC glucose (test code = 237 mg/dL 65-99 H Ope rator Name: [facility] 10513-1) AdamDevice ID: [id number] able: TM Notified cilnical scientist Interpretation (test Abnormal code = 13727-8) [facility]2022-12-15 14:39:00 Test Item Value Reference Range Interpretation Comments POC glucose (test code = 237 mg/dL 65-99 H Ope rator Name: [facility] 56282-1) AdamDevice ID: [id number] able: TM Notified cilnical scientist Interpretation (test Abnormal code = 29686-0) [facility]2022-12-15 14:39:00 Test Item Value Reference Range Interpretation Comments POC glucose (test code = 237 mg/dL 65-99 H Ope rator Name: [facility] 00271-6) AdamDevice ID: [id number] able: TM Notified cilnical scientist Interpretation (test Abnormal code = 64476-0) [facility]2022-12-15 14:39:00 Test Item Value Reference Range Interpretation Comments POC glucose (test code = 237 mg/dL 65-99 H Ope rator Name: [facility] 95258-4) AdamDevice ID: [id number] able: TM Notified cilnical scientist Interpretation (test Abnormal code = 05876-7) [facility] urinalysis dipstick manually [id number] 19:16:00 Test Item Value Reference Range Interpretation Comments Glucose, UA (test code 1000 mg/dL Negative A = 0044773) Bilirubin, UA (test Negative Negative code = 8242937) Ketones, Urine (test Negative Negative, Trace code = 32088-8) Spec Grav, UA (test code = 482246721) Blood, UA (test code = Mod 999456943) pH, UA (test code = 5.0-8.5 1144463) Protein, UA (test code Negative Negative, Trace, = 9867200) 200(+2)mg/dL, 15/mg/dL Urobilinogen, UA (test See_Comment [Aut omated code = 9035052) message] The system which generated this result transmitted reference range : 0.2. The refere nce range was not u sed to interpret th is result as normal/abnormal . Nitrite, UA (test code Negative Negative, Trace = 3436580) Leukocytes, UA (test Negative Negative, Trace code = 4179012) Lab Interpretation Abnormal (test code = 58319-6) [facility] urinalysis dipstick manually [id number] 18:43:00 Test Item Value Reference Range Interpretation Comments Glucose, UA (test code 500 mg/dL Negative A = 4040056) Bilirubin, UA (test Negative Negative code = 9751009) Ketones, Urine (test Negative Negative, Trace code = 30212-9) Spec Grav, UA (test code = 955966588) Blood, UA (test code = Trace 021543584) pH, UA (test code = 5.0-8.5 1316016) Protein, UA (test code Negative Negative, Trace, = 9845306) 200(+2)mg/dL, 15/mg/dL Urobilinogen, UA (test See_Comment [Aut omated code = 2997082) message] The system which generated this result transmitted reference range : 0.2. The refere nce range was not u sed to interpret th is result as normal/abnormal . Nitrite, UA (test code Negative Negative, Trace = 8317605) Leukocytes, UA (test Negative Negative, Trace code = 1567287) Lab Interpretation Abnormal (test code = 29374-6) [facility] HEMOGLOBIN A1C [id number] 18:23:00 Test Item Value Reference Range Interpretation Comments POCT HBA1C (test code = 4548-4) 14 % 4-6 A Lab Interpretation (test code = Abnormal 96937-0) [facility] [id number] 18:23:00 Test Item Value Reference Range Interpretation Comments POCT HBA1C (test code = 4548-4) 14 % 4-6 A Lab Interpretation (test code = Abnormal 52918-3) [facility] 12 [id number] 00:09:04 Test Item Value Reference Range Interpretation Comments Ventricular rate (test code = 253) Atrial rate (test code = 255) ND interval (test code = 266) QRSD interval [...] abnormality no longer evident in Lateral leads[facility], (w Contrast, Strain and 3D if needed)2020-05-05 21:56:13 Test Item Value Reference Range Interpretation Comments AoV Area, Vmax (test 3.00 cm2 code = 0538222044) AoV Area, VTI (test 2.90 cm2 code = 1270207998) AoV Mean PG (test code mmHg = 5911828578) AoV Peak PG (test code mmHg = 0359753472) AoV Vmax (test code = 1.31 m/s 3422925508) AoV VTI (test code = 0.26 m 8309221273) IVS,d (test code = 1.03 cm 4008366618) IVS/LVPW,2D (test code = 1669996624) Left Atrium Dimension 4.40 cm Anterior (test code = 8788200207) LV,d (test code = 5.15 cm 3101511862) LV EF,2D (test code = 55.90 % 9183348750) LV,s (test code = 3.92 cm 4914117390) LVOT area (test code = 3.14 cm2 4210757727) LVOT Diam,S (test code 2.00 cm = 8752736798) LVOT Vmax (test code = 1.25 m/s 2463717218) LVOT VTI (test code = 0.24 m 6251479465) LVPWD,d (test code = 0.86 cm 5425858022) PV Pk Grad (test code = mmHg 9927527043) PV VMAX (test code = 0.90 m/s 1780284691) RVOT Vmax (test code = 0.78 m/s 0281108931) TR Vpeak (test code = 2.34 mm/s 8654311202) MV E A ratio (test code = 8414321722) TR pk grad (test code = mmHg 2964477489) MR Vmax (test code = 4.27 m/s 6232100682) MR peak grad (test code mmHg = 8337119875) E wave decelartion time msec (test code = 1601515115) MV Peak A Sam (test 0.87 m/s code = 9904300060) MV valve area p 1/2 3.17 cm2 method (test code = 2392302112) MV Peak E Sam (test 0.83 m/s code = 8742215672) MV stenosis pressure 69.31 ms 1/2 time (test code = 8424138045) LVOT stroke volume 0.75 cm3 (test code = 9453186628) AV LVOT peak gradient mmHg (test code = 9881839973) Ao Root,d,2D (test code 3.00 cm = 7592509544) LV SYS VOL (test code = 66.72 ml 6298272192) LV LICONA VOL (test code 126.64 ml = 9331867684) LV SV Teich 2D (test 59.92 ml code = 7842809320) LV Vol s Teich PSAX 66.72 ml (test code = 7757316424) RVOT pk grad (test code mmHg = 2876558040) AoV Vmn (test code = 7775934607) LV FS Teich 2D (test code = 9035268378) MV AE ratio (test code = 1392121417) LV FS Cube 2D (test code = 3712099516) LVOT Vmn (test code = 6469592579) Aov area Vmn (test code 2.80 cm2 = 2054236115) LVOT mean grad (test mmHg code = 5016510824) MAX Pred HR (test code = 8532564198) 85 of MPHR (test code = 9684777979) Ao d LA s ratio (test code = 7517266586) Calc MPHR (test code = bpm 2711746916) LV SV Cube 2D (test 76.35 ml code = 1716162274) LV vol d cube 2D (test 136.59 ml code = 2325839745) LV vol s cube 2D (test 60.24 ml code = 9422665795) MV Decel slope (test 3.45 m/s2 code = 5232241612) Pred Exer Dur R1 (test code = 4370730553) Pred METS R1 (test code = 4517690545) Velocity Ratio (V1/V2) 0.95 m/s (test code = 4689) EF (test code = 47.32 % 5136504329) E/A ratio (test code = 9131706381) LVOT VTI (CM) (test 24.00 cm code = 4380119687) MARIOLA (test code = MARIOLA) Normal left ventricular size and function with an EF~ 55% to 60%.Normal right ventricular size and function.Structurally normal cardiac valves.Mild mitral regurgitation. Left atrial enlargement. Normal pericardium with no effusion.Grade 1 diastolic dysfunction. [facility] Brain W Wo [id number] 18:34:06EXAM: MRI BRAIN W WO CONTRAST CLINICAL [...] is no enhancing lesion in the brain. [id number] Interface, Radiology Results Incoming - 05/05/2020 1:37 [...] There is no enhancing lesion in the brain.[id number] HospitalUrine [id number] 20:46:09 Test Item Value Reference Range Interpretation Comments Urine culture (test SEE COMMENT Bacteriu summer screen code = 7697851) negative. [facility] Wo Nefuqcif6274-87-25 19:49:34EXAMINATION: CT ANGIOGRAM HEAD W WO CONTRAST [...] occlusion or aneurysm.[id number] Neck W Wo Nbhhysog5192-46-27 19:48:26 EXAMINATION: CT ANGIOGRAM NECK W WO [...] criteriaVertebral artery patency.[id number] Hospital[facility] Stroke Brain Wo Nvlzybxd7671-84-11 19:42:38EXAMINATION: CT STROKE BRAIN WO CONTRAST CLINICAL [...] Scalp soft tissues are unremarkable. IMPRESSION: No acute intracranial abnormality identified. These findings were discussed with ANA MARIA Means at 1441 hours 05/04/2020 who verbalized understanding. [facility]-[id number] Interface, Radiology Results Incoming - 2:45 PM CDT EXAMINATION: CT STROKE BRAIN [...] at 1441 hours on 05/04/2020 who verbalized understanding.[facility]-[id number] [facility]] CULTURE, URINE, [id number] 14:25:01 Test Item Value Reference Range Interpretation Comments ORGANISM (test Escherichia coliEnterococcus code = 699-9) Species FINAL REPORT 50,000 - 100,000 CFU/mL (test code = Escherichia coli 10,000 - FINAL REPORT) 50,000 CFU/mL EnterococcusSpecies 10,000 - 50,000 CFU/mL [facility][H] [id number] 14:25:01 Test Item Value Reference Range Interpretation Comments ORGANISM (test code = Enterococcus 699-9) Species Ampicillin (test code - S = Ampicillin) Levofloxacin (test - S code = Levofloxacin) Nitrofurantoin (test - S code = Nitrofurantoin) Tetracycline (test - S code = Tetracycline) Vancomycin (test code SEE NOTES S S= Latoya ceptible, = Vancomycin) R= Resistant, I= Intermediate, N/A= Not Applicable [facility][H] [id number] 14:25:01 Test Item Value Reference Range Interpretation [...] Tetracycline (test code = - S Tetracycline) [facility]] Urine Dipstick (In Office)2017-08-27 15:29:00 Test Item Value Reference Range Interpretation Comments LEUKOCYTES (test code = LEUKOCYTES) 2+ A NITRITE; Normal (test code = 61466-6) neg N UROBILINOGEN; Normal (test code = 0.2 N 90367-7) PROTEIN; Normal (test code = 49164-4) neg N pH (test code = pH) 6.5 N URINE BLOOD; Abnormal (test code = trace A 76338-3) SPECIFIC GRAVITY; Normal (test code = 1.020 N 2965-2) KETONES; Normal (test code = 73106-5) neg N BILIRUBIN; Normal (test code = 12771-7) neg N GLUCOSE; Normal (test code = 1547-9) neg N [facility]] CULTURE, URINE, [id number] 15:37:01 Test Item Value Reference Range Interpretation Comments ORGANISM (test code = Escherichia coli 699-9) FINAL REPORT (test 50,000 - 100,000 CFU/mL code = FINAL REPORT) Escherichia coli . 50,000 - 100,000 CFU/mL [facility][H] [id number] 15:37:01 Test Item Value Reference Range Interpretation [...] Resi stant, I= Intermediate, N/A= Not Applicable [facility]] Urine Dipstick (In Office)2017-08-21 12:24:00 Test Item Value Reference Range Interpretation Comments LEUKOCYTES (test code = LEUKOCYTES) 2+ A NITRITE; Normal (test code = 54095-3) NEG N UROBILINOGEN; Normal (test code = 0.2 N 77550-0) PROTEIN; Abnormal (test code = 82643-3) 30 MG A pH (test code = pH) 5.5 N URINE BLOOD; Abnormal (test code = 2+ A 73361-6) SPECIFIC GRAVITY; Normal (test code = 1.030 N 2965-2) KETONES; Normal (test code = 24802-2) NEG N BILIRUBIN; Normal (test code = 97617-7) NEG N GLUCOSE; Normal (test code = 1547-9) NEG N [facility]] Urine Dipstick (In Office)2017-06-09 10:06:00 Test Item Value Reference Range Interpretation Comments LEUKOCYTES (test code = LEUKOCYTES) 2+ A NITRITE; Normal (test code = 35412-9) NEG N UROBILINOGEN; Normal (test code = 0.2 N 56176-8) PROTEIN; Normal (test code = 46975-4) NEG N pH (test code = pH) 7.0 N URINE BLOOD; Abnormal (test code = 2+ A 23495-4) SPECIFIC GRAVITY; Normal (test code = 1.010 N 2965-2) KETONES; Normal (test code = 51675-4) NEG N BILIRUBIN; Normal (test code = NEG N 79187-1) GLUCOSE; Abnormal (test code = 1547-9) 250 MG A [facility]] BV/ VAGINITIS PANEL DNA PROBE [id number] 09:20:01 Test Item Value Reference Range Interpretation Comments Trichomonas vaginalis DNA (test code Negative Negative = 46996-5) Gardnerella vaginalis DNA; Abnormal Positive Negative A (test code = 6410-5) Jacques sp. DNA; Abnormal (test code Positive Negative A = 20384-8) [facility]] CULTURE, URINE, [id number] 09:20:01 Test Item Value Reference Range Interpretation Comments ORGANISM (test code = Escherichia coli 699-9) FINAL REPORT (test >100,000 CFU/mL code = FINAL REPORT) Escherichia coli 10,000 - 50,000 CFU/mL [facility][H] [id number] 09:20:01 Test Item Value Reference Range Interpretation Comments ORGANISM (test code Escherichia coli = 699-9) Ciprofloxacin (test .75 S code = Ciprofloxacin) Levofloxacin (test 1.5 S code = Levofloxacin) Trimethoprim/Sulfame 32 R thoxazole (test code = Trimethoprim/Sulfame thoxazole) Ceftriaxone (test .094 S S= Suscept ible, code = Ceftriaxone) R= Resis tant, I= Intermediate, N/A= Not Applicable [facility]2017-02-20 20:20:00 Test Item Value Reference Range Interpretation Comments Eos BF (test code = Eos BF) 0 [facility]2017-02-20 20:20:00 Test Item Value Reference Range Interpretation Comments Macrophage BF (test code = Macrophage 0 BF) [facility]2017-02-20 20:20:00 Test Item Value Reference Range Interpretation Comments Color BF (test code = Yellow (04/01/16 2:20 Color BF) PM) [facility]2017-02-20 20:20:00 Test Item Value Reference Range Interpretation Comments CellCnt BF Type (test Other (04/01/16 2:20 code = CellCnt BF Type) PM) [facility]2017-02-20 20:20:00 Test Item Value Reference Range Interpretation Comments Clarity BF (test code = Slight Cloudy (04/01/16 Clarity BF) 2:20 PM) [facility]2017-02-20 20:20:00 Test Item Value Reference Range Interpretation Comments RBC BF (test code = RBC BF) 5375 [facility]2017-02-20 20:20:00 Test Item Value Reference Range Interpretation Comments WBC BF (test code = WBC BF) 980 [facility]2017-02-20 20:20:00 Test Item Value Reference Range Interpretation Comments Lymph BF (test code = Lymph BF) 44 [facility]2017-02-20 20:20:00 Test Item Value Reference Range Interpretation Comments Segs BF (test code = Segs BF) 56 [facility]2017-02-20 20:20:00 Test Item Value Reference Range Interpretation Comments Eos BF (test code = Eos BF) 0 [facility]2017-02-20 20:20:00 Test Item Value Reference Range Interpretation Comments Macrophage BF (test code = Macrophage 0 BF) [facility]2017-02-20 20:20:00 Test Item Value Reference Range Interpretation Comments Color BF (test code = Yellow (04/01/16 2:20 Color BF) PM) [facility]2017-02-20 20:20:00 Test Item Value Reference Range Interpretation Comments CellCnt BF Type (test Other (04/01/16 code = CellCnt BF Type) PM) [facility]2017-02-20 20:20:00 Test Item Value Reference Range Interpretation Comments Clarity BF (test code = Slight Cloudy (04/01/16 Clarity BF) 2:20 PM) [facility]2017-02-20 20:20:00 Test Item Value Reference Range Interpretation Comments RBC BF (test code = RBC BF) 5375 [facility]2017-02-20 20:20:00 Test Item Value Reference Range Interpretation Comments WBC BF (test code = WBC BF) 980 [facility]2017-02-20 20:20:00 Test Item Value Reference Range Interpretation Comments Lymph BF (test code = Lymph BF) 44 [facility]2017-02-20 20:20:00 Test Item Value Reference Range Interpretation Comments Segs BF (test code = Segs BF) 56 [facility]2017-02-20 20:20:00 Test Item Value Reference Range Interpretation Comments Eos BF (test code = Eos BF) 0 [facility]2017-02-20 20:20:00 Test Item Value Reference Range Interpretation Comments Macrophage BF (test code = Macrophage 0 BF) [facility]2017-02-20 20:20:00 Test Item Value Reference Range Interpretation Comments Color BF (test code = Yellow (04/01/16 2:20 Color BF) PM) [facility]2017-02-20 20:20:00 Test Item Value Reference Range Interpretation Comments CellCnt BF Type (test Other (04/01/16 2:20 code = CellCnt BF Type) PM) [facility]2017-02-20 20:20:00 Test Item Value Reference Range Interpretation Comments Clarity BF (test code = Slight Cloudy (04/01/16 Clarity BF) 2:20 PM) [facility]2017-02-20 20:20:00 Test Item Value Reference Range Interpretation Comments RBC BF (test code = RBC BF) 5375 [facility]2017-02-20 20:20:00 Test Item Value Reference Range Interpretation Comments WBC BF (test code = WBC BF) 980 [facility]2017-02-20 20:20:00 Test Item Value Reference Range Interpretation Comments Lymph BF (test code = Lymph BF) 44 [facility]2017-02-20 20:20:00 Test Item Value Reference Range Interpretation Comments Segs BF (test code = Segs BF) 56 [facility]2017-02-20 20:20:00 Test Item Value Reference Range Interpretation Comments Eos BF (test code = Eos BF) 0 [facility]2017-02-20 20:20:00 Test Item Value Reference Range Interpretation Comments Macrophage BF (test code = Macrophage 0 BF) [facility]2017-02-20 20:20:00 Test Item Value Reference Range Interpretation Comments Color BF (test code = Yellow (04/01/16 2:20 Color BF) PM) [facility]2017-02-20 20:20:00 Test Item Value Reference Range Interpretation Comments CellCnt BF Type (test Other (04/01/16 2:20 code = CellCnt BF Type) PM) [facility]2017-02-20 20:20:00 Test Item Value Reference Range Interpretation Comments Clarity BF (test code = Slight Cloudy (04/01/16 Clarity BF) 2:20 PM) [facility]2017-02-20 20:20:00 Test Item Value Reference Range Interpretation Comments RBC BF (test code = RBC BF) 5375 [facility]2017-02-20 20:20:00 Test Item Value Reference Range Interpretation Comments WBC BF (test code = WBC BF) 980 [facility]2017-02-20 20:20:00 Test Item Value Reference Range Interpretation Comments Lymph BF (test code = Lymph BF) 44 [facility]2017-02-20 20:20:00 Test Item Value Reference Range Interpretation Comments Segs BF (test code = Segs BF) 56 [facility]2017-02-20 20:20:00 Test Item Value Reference Range Interpretation Comments Eos BF (test code = Eos BF) 0 [facility]2017-02-20 20:20:00 Test Item Value Reference Range Interpretation Comments Macrophage BF (test code = Macrophage 0 BF) [facility]2017-02-20 20:20:00 Test Item Value Reference Range Interpretation Comments Color BF (test code = Yellow (04/01/16 2:20 Color BF) PM) [facility]2017-02-20 20:20:00 Test Item Value Reference Range Interpretation Comments CellCnt BF Type (test Other (04/01/16 2:20 code = CellCnt BF Type) PM) [facility]2017-02-20 20:20:00 Test Item Value Reference Range Interpretation Comments Clarity BF (test code = Slight Cloudy (04/01/16 Clarity BF) 2:20 PM) [facility]2017-02-20 20:20:00 Test Item Value Reference Range Interpretation Comments RBC BF (test code = RBC BF) 5375 [facility]2017-02-20 20:20:00 Test Item Value Reference Range Interpretation Comments WBC BF (test code = WBC BF) 980 [facility]2017-02-20 20:20:00 Test Item Value Reference Range Interpretation Comments Lymph BF (test code = Lymph BF) 44 [facility]2017-02-20 20:20:00 Test Item Value Reference Range Interpretation Comments Segs BF (test code = Segs BF) 56 [facility]2017-02-20 20:20:00 Test Item Value Reference Range Interpretation Comments Eos BF (test code = Eos BF) 0 [facility]2017-02-20 20:20:00 Test Item Value Reference Range Interpretation Comments Macrophage BF (test code = Macrophage 0 BF) [facility]2017-02-20 20:20:00 Test Item Value Reference Range Interpretation Comments Color BF (test code = Yellow (04/01/16 2:20 Color BF) PM) [facility]2017-02-20 20:20:00 Test Item Value Reference Range Interpretation Comments CellCnt BF Type (test Other (04/01/16 2:20 code = CellCnt BF Type) PM) [facility]2017-02-20 20:20:00 Test Item Value Reference Range Interpretation Comments Clarity BF (test code = Slight Cloudy (04/01/16 Clarity BF) 2:20 PM) [facility]2017-02-20 20:20:00 Test Item Value Reference Range Interpretation Comments RBC BF (test code = RBC BF) 5375 [facility]2017-02-20 20:20:00 Test Item Value Reference Range Interpretation Comments WBC BF (test code = WBC BF) 980 [facility]2017-02-20 20:20:00 Test Item Value Reference Range Interpretation Comments Lymph BF (test code = Lymph BF) 44 [facility]2017-02-20 20:20:00 Test Item Value Reference Range Interpretation Comments Segs BF (test code = Segs BF) 56 [facility]2017-02-20 20:20:00 Test Item Value Reference Range Interpretation Comments Eos BF (test code = Eos BF) 0 [facility]2017-02-20 20:20:00 Test Item Value Reference Range Interpretation Comments Macrophage BF (test code = Macrophage 0 BF) [facility]2017-02-20 20:20:00 Test Item Value Reference Range Interpretation Comments Color BF (test code = Yellow (04/01/16 2:20 Color BF) PM) [facility]2017-02-20 20:20:00 Test Item Value Reference Range Interpretation Comments CellCnt BF Type (test Other (04/01/16 2:20 code = CellCnt BF Type) PM) [facility]2017-02-20 20:20:00 Test Item Value Reference Range Interpretation Comments Clarity BF (test code = Slight Cloudy (04/01/16 Clarity BF) 2:20 PM) [facility]2017-02-20 20:20:00 Test Item Value Reference Range Interpretation Comments RBC BF (test code = RBC BF) 5375 [facility]2017-02-20 20:20:00 Test Item Value Reference Range Interpretation Comments WBC BF (test code = WBC BF) 980 [facility]2017-02-20 20:20:00 Test Item Value Reference Range Interpretation Comments Lymph BF (test code = Lymph BF) 44 [facility]2017-02-20 20:20:00 Test Item Value Reference Range Interpretation Comments Segs BF (test code = Segs BF) 56 [facility]2017-02-20 20:20:00 Test Item Value Reference Range Interpretation Comments Eos BF (test code = Eos BF) 0 [facility]2017-02-20 20:20:00 Test Item Value Reference Range Interpretation Comments Macrophage BF (test code = Macrophage 0 BF) [facility]2017-02-20 20:20:00 Test Item Value Reference Range Interpretation Comments Color BF (test code = Yellow (04/01/16 2:20 Color BF) PM) [facility]2017-02-20 20:20:00 Test Item Value Reference Range Interpretation Comments CellCnt BF Type (test Other (04/01/16 2:20 code = CellCnt BF Type) PM) [facility]2017-02-20 20:20:00 Test Item Value Reference Range Interpretation Comments Clarity BF (test code = Slight Cloudy (04/01/16 Clarity BF) 2:20 PM) [facility]2017-02-20 20:20:00 Test Item Value Reference Range Interpretation Comments RBC BF (test code = RBC BF) 5375 [facility]2017-02-20 20:20:00 Test Item Value Reference Range Interpretation Comments WBC BF (test code = WBC BF) 980 [facility]2017-02-20 20:20:00 Test Item Value Reference Range Interpretation Comments Lymph BF (test code = Lymph BF) 44 [facility]2017-02-20 20:20:00 Test Item Value Reference Range Interpretation Comments Segs BF (test code = Segs BF) 56 [facility]2017-02-20 20:20:00 Test Item Value Reference Range Interpretation Comments Eos BF (test code = Eos BF) 0 [facility]2017-02-20 20:20:00 Test Item Value Reference Range Interpretation Comments Macrophage BF (test code = Macrophage 0 BF) [facility]2017-02-20 20:20:00 Test Item Value Reference Range Interpretation Comments Color BF (test code = Yellow (2/20/17 2:20 Color BF) PM) [facility]2017-02-20 20:20:00 Test Item Value Reference Range Interpretation Comments CellCnt BF Type (test Other (04/01/16 2:20 code = CellCnt BF Type) PM) [facility]2017-02-20 20:20:00 Test Item Value Reference Range Interpretation Comments Clarity BF (test code = Slight Cloudy (04/01/16 Clarity BF) 2:20 PM) [facility]2017-02-20 20:20:00 Test Item Value Reference Range Interpretation Comments RBC BF (test code = RBC BF) 5375 [facility]2017-02-20 20:20:00 Test Item Value Reference Range Interpretation Comments WBC BF (test code = WBC BF) 980 [facility]2017-02-20 20:20:00 Test Item Value Reference Range Interpretation Comments Lymph BF (test code = Lymph BF) 44 [facility]2017-02-20 20:20:00 Test Item Value Reference Range Interpretation Comments Segs BF (test code = Segs BF) 56 [facility]2017-02-20 20:20:00 Test Item Value Reference Range Interpretation Comments Eos BF (test code = Eos BF) 0 [facility]2017-02-20 20:20:00 Test Item Value Reference Range Interpretation Comments Macrophage BF (test code = Macrophage 0 BF) [facility]2017-02-20 20:20:00 Test Item Value Reference Range Interpretation Comments Color BF (test code = Yellow (04/01/16 2:20 Color BF) PM) [facility]2017-02-20 20:20:00 Test Item Value Reference Range Interpretation Comments CellCnt BF Type (test Other (04/01/16 2:20 code = CellCnt BF Type) PM) [facility]2017-02-20 20:20:00 Test Item Value Reference Range Interpretation Comments Clarity BF (test code = Slight Cloudy (04/01/16 Clarity BF) 2:20 PM) [facility]2017-02-20 20:20:00 Test Item Value Reference Range Interpretation Comments RBC BF (test code = RBC BF) 5375 [facility]2017-02-20 20:20:00 Test Item Value Reference Range Interpretation Comments WBC BF (test code = WBC BF) 980 [facility]2017-02-20 20:20:00 Test Item Value Reference Range Interpretation Comments Lymph BF (test code = Lymph BF) 44 [facility]2017-02-20 20:20:00 Test Item Value Reference Range Interpretation Comments Segs BF (test code = Segs BF) 56 [facility]2017-02-20 20:20:00 Test Item Value Reference Range Interpretation Comments Eos BF (test code = Eos BF) 0 [facility]2017-02-20 20:20:00 Test Item Value Reference Range Interpretation Comments Macrophage BF (test code = Macrophage 0 BF) [facility]2017-02-20 20:20:00 Test Item Value Reference Range Interpretation Comments Color BF (test code = Yellow (04/01/16 2:20 Color BF) PM) [facility]2017-02-20 20:20:00 Test Item Value Reference Range Interpretation Comments CellCnt BF Type (test Other (04/01/16 2:20 code = CellCnt BF Type) PM) [facility]2017-02-20 20:20:00 Test Item Value Reference Range Interpretation Comments Clarity BF (test code = Slight Cloudy (04/01/16 Clarity BF) 2:20 PM) [facility]2017-02-20 20:20:00 Test Item Value Reference Range Interpretation Comments RBC BF (test code = RBC BF) 5375 [facility]2017-02-20 20:20:00 Test Item Value Reference Range Interpretation Comments WBC BF (test code = WBC BF) 980 [facility]2017-02-20 20:20:00 Test Item Value Reference Range Interpretation Comments Lymph BF (test code = Lymph BF) 44 [facility]2017-02-20 20:20:00 Test Item Value Reference Range Interpretation Comments Segs BF (test code = Segs BF) 56 [facility]2017-02-20 20:20:00 Test Item Value Reference Range Interpretation Comments Eos BF (test code = Eos BF) 0 [facility]2017-02-20 20:20:00 Test Item Value Reference Range Interpretation Comments Macrophage BF (test code = Macrophage 0 BF) [facility]2017-02-20 20:20:00 Test Item Value Reference Range Interpretation Comments Color BF (test code = Yellow (04/01/16 2:20 Color BF) PM) [facility]2017-02-20 20:20:00 Test Item Value Reference Range Interpretation Comments CellCnt BF Type (test Other (04/01/16 2:20 code = CellCnt BF Type) PM) [facility]2017-02-20 20:20:00 Test Item Value Reference Range Interpretation Comments Clarity BF (test code = Slight Cloudy (04/01/16 Clarity BF) 2:20 PM) [facility]2017-02-20 20:20:00 Test Item Value Reference Range Interpretation Comments RBC BF (test code = RBC BF) 5375 [facility]2017-02-20 20:20:00 Test Item Value Reference Range Interpretation Comments WBC BF (test code = WBC BF) 980 [facility]2017-02-20 20:20:00 Test Item Value Reference Range Interpretation Comments Lymph BF (test code = Lymph BF) 44 [facility]2017-02-20 20:20:00 Test Item Value Reference Range Interpretation Comments Segs BF (test code = Segs BF) 56 [facility]FwfwmkbKHAKYFOTQX0775-37-29 19:10:00 Test Item Value Reference Range Interpretation Comments WBC (test code = WBC) 6.1 3.7-10.4 [facility] CenterTyeuaavOWNMITSPBY3403-12-63 19:10:00 Test Item Value Reference Range Interpretation Comments MPV (test code = MPV) 7.9 7.4-10.4 [facility] CenterSkxvdseQHZAFEWWIK4462-82-73 19:10:00 Test Item Value Reference Range Interpretation Comments Platelet (test code = Platelet) 226 133-450 [facility] CenterNaabpjyLRZSNJGPTH2334-66-89 19:10:00 Test Item Value Reference Range Interpretation Comments MCH (test code = MCH) 28.5 pg 27.0-31.0 [facility] CenterBlaasuaSTAZBGSPCE4273-79-53 19:10:00 Test Item Value Reference Range Interpretation Comments RDW (test code = RDW) 14.8 11.5-14.5 [facility] CenterHqosbnrHICWEDUNIH4479-97-96 19:10:00 Test Item Value Reference Range Interpretation Comments MCHC (test code = MCHC) 33.2 32.0-36.0 [facility] CenterMranxpyEGWSOCDCMI4524-71-00 19:10:00 Test Item Value Reference Range Interpretation Comments Hct (test code = Hct) 30.8 36.0-48.0 [facility] CenterTjkphnyFQRPUSRPLT3192-01-54 19:10:00 Test Item Value Reference Range Interpretation Comments RBC (test code = RBC) 3.59 4.20-5.40 [facility] CenterVwtjetwCZOXINAIKS2811-19-68 19:10:00 Test Item Value Reference Range Interpretation Comments Hgb (test code = Hgb) 10.2 12.0-16.0 [facility] CenterItpwctlMBDNVMHRPF5252-05-94 19:10:00 Test Item Value Reference Range Interpretation Comments MCV (test code = MCV) 85.9 80.0-98.0 [facility] CenterApxlgfzGESZKEPWOO2909-43-90 19:10:00 Test Item Value Reference Range Interpretation Comments Eosinophils # (test code 0.1 See_Comment [A utomated message] The = Eosinophils #) system whic h generated this result tra nsmitted reference range : <=0.5. The reference r lv was not used to int erpret this result as normal/abnormal . [facility] CenterCnzeeatNCQNWPGDWH3469-07-35 19:10:00 Test Item Value Reference Range Interpretation Comments Monocytes # (test code 0.4 See_Comment [Aut omated message] The = Monocytes #) system which generated this result tra nsmitted reference range : <=0.8. The reference r lv was not used to int erpret this result as normal/abnormal . [facility] CenterYfydeotYBIPSFHRXQ9038-82-25 19:10:00 Test Item Value Reference Range Interpretation Comments Segs-Bands # (test code = Segs-Bands #) 4.0 1.5-8.1 [facility] CenterSsrcuipNBQVQDKNBH4684-72-06 19:10:00 Test Item Value Reference Range Interpretation Comments Lymphocytes # (test code = Lymphocytes 1.5 1.0-5.5 #) [facility] CenterXiewzikJFXOIYTHQK0634-75-66 19:10:00 Test Item Value Reference Range Interpretation Comments Basophils # (test code 0.0 See_Comment [Aut omated message] The = Basophils #) system which generated this result tra nsmitted reference range : <=0.2. The reference r lv was not used to int erpret this result as normal/abnormal . [facility] CenterSgbknmaAXYGBRCFFV5421-04-83 19:10:00 Test Item Value Reference Range Interpretation Comments Lymphocytes (test code = Lymphocytes) 25.0 20.0-40.0 [facility] CenterWbryynxCSTVMMKVES1467-25-37 19:10:00 Test Item Value Reference Range Interpretation Comments Monocytes (test code = Monocytes) 6.9 2.0-12.0 [facility] CenterDflkkqeUWBMUVGWMT3227-21-50 19:10:00 Test Item Value Reference Range Interpretation Comments Segs (test code = Segs) 65.5 45.0-75.0 [facility] CenterPacpgmvMRSXTUPTRT4684-65-52 19:10:00 Test Item Value Reference Range Interpretation Comments Basophils (test code = 0.6 See_Comment [Aut omated message] The Basophils) system which ge nerated this result tra nsmitted reference range : <=1.0. The reference r lv was not used to int erpret this result as normal/abnormal . [facility] CenterGmdnggfLHPQIMYWWS7779-34-19 19:10:00 Test Item Value Reference Range Interpretation Comments Eosinophils (test code = 2.0 See_Comment [A utomated message] The Eosinophils) system which ge nerated this result tra nsmitted reference range : <=4.0. The reference r lv was not used to int erpret this result as normal/abnormal . [facility] CenterOqlrxmwHSRHLFPHTW6601-06-41 19:10:00 Test Item Value Reference Range Interpretation Comments WBC (test code = WBC) 6.1 3.7-10.4 [facility] CenterOrxhmxhIAJIKOWHEB2447-91-51 19:10:00 Test Item Value Reference Range Interpretation Comments MPV (test code = MPV) 7.9 7.4-10.4 [facility] CenterKxqtglmLVYNNIYDEN8277-34-38 19:10:00 Test Item Value Reference Range Interpretation Comments Platelet (test code = Platelet) 226 133-450 [facility] CenterRcsrcujMUDZDQXXJQ5999-85-16 19:10:00 Test Item Value Reference Range Interpretation Comments MCH (test code = MCH) 28.5 pg 27.0-31.0 [facility] CenterBaifcuzGXYDKWHBPJ3254-04-97 19:10:00 Test Item Value Reference Range Interpretation Comments RDW (test code = RDW) 14.8 11.5-14.5 [facility] CenterFjdrgngGAPAAVZZRJ5041-17-94 19:10:00 Test Item Value Reference Range Interpretation Comments MCHC (test code = MCHC) 33.2 32.0-36.0 [facility] CenterUttjmziKGJINWGJRP0984-65-30 19:10:00 Test Item Value Reference Range Interpretation Comments Hct (test code = Hct) 30.8 36.0-48.0 [facility] CenterVhrqpomSLXIXHSHGO0764-41-46 19:10:00 Test Item Value Reference Range Interpretation Comments RBC (test code = RBC) 3.59 4.20-5.40 [facility] CenterLbmljpcAGFLBBXMWC7906-63-31 19:10:00 Test Item Value Reference Range Interpretation Comments Hgb (test code = Hgb) 10.2 12.0-16.0 [facility] CenterXdygfyjAVUYGLLDDJ6184-14-95 19:10:00 Test Item Value Reference Range Interpretation Comments MCV (test code = MCV) 85.9 80.0-98.0 [facility] CenterZsghqyeVEECFMFFCE4539-10-55 19:10:00 Test Item Value Reference Range Interpretation Comments Eosinophils # (test code 0.1 See_Comment [A utomated message] The = Eosinophils #) system whic h generated this result tra nsmitted reference range : <=0.5. The reference r lv was not used to int erpret this result as normal/abnormal . [facility] CenterWmtbaboKYHMEPKALY2766-98-75 19:10:00 Test Item Value Reference Range Interpretation Comments Monocytes # (test code 0.4 See_Comment [Aut omated message] The = Monocytes #) system which generated this result tra nsmitted reference range : <=0.8. The reference r lv was not used to int erpret this result as normal/abnormal . [facility] CenterYswvidoLGNLTEOPOV9322-11-64 19:10:00 Test Item Value Reference Range Interpretation Comments Segs-Bands # (test code = Segs-Bands #) 4.0 1.5-8.1 [facility] CenterLxalsspHSXOEBHSHL7209-80-03 19:10:00 Test Item Value Reference Range Interpretation Comments Lymphocytes # (test code = Lymphocytes 1.5 1.0-5.5 #) [facility] CenterVcajhdfYROAMAHEZE1355-49-38 19:10:00 Test Item Value Reference Range Interpretation Comments Basophils # (test code 0.0 See_Comment [Aut omated message] The = Basophils #) system which generated this result tra nsmitted reference range : <=0.2. The reference r lv was not used to int erpret this result as normal/abnormal . [facility] CenterMfxlkguGUTVDTRPUV7424-00-06 19:10:00 Test Item Value Reference Range Interpretation Comments Lymphocytes (test code = Lymphocytes) 25.0 20.0-40.0 [facility] CenterDfnsrvkJBGFZDLKMM8714-71-36 19:10:00 Test Item Value Reference Range Interpretation Comments Monocytes (test code = Monocytes) 6.9 2.0-12.0 [facility] CenterRzjaskiRXPHIALMZE0069-65-26 19:10:00 Test Item Value Reference Range Interpretation Comments Segs (test code = Segs) 65.5 45.0-75.0 [facility] CenterZhqjvdbJAWAFRTIPU6027-88-88 19:10:00 Test Item Value Reference Range Interpretation Comments Basophils (test code = 0.6 See_Comment [Aut omated message] The Basophils) system which ge nerated this result tra nsmitted reference range : <=1.0. The reference r lv was not used to int erpret this result as normal/abnormal . [facility] CenterFayvvnfBOVCLSWAHZ7743-08-33 19:10:00 Test Item Value Reference Range Interpretation Comments Eosinophils (test code = 2.0 See_Comment [A utomated message] The Eosinophils) system which ge nerated this result tra nsmitted reference range : <=4.0. The reference r lv was not used to int erpret this result as normal/abnormal . [facility] CenterNqosvbcXMKFMJOVGI3515-66-54 19:10:00 Test Item Value Reference Range Interpretation Comments WBC (test code = WBC) 6.1 3.7-10.4 [facility] CenterKifjpyeMIPBRRVPRG3776-88-65 19:10:00 Test Item Value Reference Range Interpretation Comments MPV (test code = MPV) 7.9 7.4-10.4 [facility] CenterXibaamyZUJHQKFGUX5259-69-87 19:10:00 Test Item Value Reference Range Interpretation Comments Platelet (test code = Platelet) 226 133-450 [facility] CenterAfelmslPLLGCDZKAO5024-76-45 19:10:00 Test Item Value Reference Range Interpretation Comments MCH (test code = MCH) 28.5 pg 27.0-31.0 [facility] CenterLtfhvscRFVCDUUNBV0890-11-34 19:10:00 Test Item Value Reference Range Interpretation Comments RDW (test code = RDW) 14.8 11.5-14.5 [facility] CenterNsqgqlvTLZDJTFTSH9001-26-93 19:10:00 Test Item Value Reference Range Interpretation Comments MCHC (test code = MCHC) 33.2 32.0-36.0 [facility] CenterOsirfwsISYFVABLOO8403-72-57 19:10:00 Test Item Value Reference Range Interpretation Comments Hct (test code = Hct) 30.8 36.0-48.0 [facility] CenterKvstuwcQAFBJOAJFB9275-45-01 19:10:00 Test Item Value Reference Range Interpretation Comments RBC (test code = RBC) 3.59 4.20-5.40 [facility] CenterLlpgjlpHFSWOJHSGH7688-50-75 19:10:00 Test Item Value Reference Range Interpretation Comments Hgb (test code = Hgb) 10.2 12.0-16.0 [facility] CenterRnwehvfDMCVKFYDCC8368-68-43 19:10:00 Test Item Value Reference Range Interpretation Comments MCV (test code = MCV) 85.9 80.0-98.0 [facility] CenterQdwbjikBKFXEHIAIU5398-02-52 19:10:00 Test Item Value Reference Range Interpretation Comments Eosinophils # (test code 0.1 See_Comment [A utomated message] The = Eosinophils #) system whic h generated this result tra nsmitted reference range : <=0.5. The reference r lv was not used to int erpret this result as normal/abnormal . [facility] CenterWdojhmwTDKXEHYNOW8581-38-17 19:10:00 Test Item Value Reference Range Interpretation Comments Monocytes # (test code 0.4 See_Comment [Aut omated message] The = Monocytes #) system which generated this result tra nsmitted reference range : <=0.8. The reference r lv was not used to int erpret this result as normal/abnormal . [facility] CenterKfrhhwjDMQNBXZOPR5068-34-80 19:10:00 Test Item Value Reference Range Interpretation Comments Segs-Bands # (test code = Segs-Bands #) 4.0 1.5-8.1 [facility] CenterZsixkpxZIFPBEFTPR2763-70-48 19:10:00 Test Item Value Reference Range Interpretation Comments Lymphocytes # (test code = Lymphocytes 1.5 1.0-5.5 #) [facility] CenterXjreyxzKNERTOVHGI5953-41-93 19:10:00 Test Item Value Reference Range Interpretation Comments Basophils # (test code 0.0 See_Comment [Aut omated message] The = Basophils #) system which generated this result tra nsmitted reference range : <=0.2. The reference r lv was not used to int erpret this result as normal/abnormal . [facility] CenterEcwwgubAJERAUUZFS2331-21-60 19:10:00 Test Item Value Reference Range Interpretation Comments Lymphocytes (test code = Lymphocytes) 25.0 20.0-40.0 [facility] CenterOfvzsaxEGKZRYIFQR1089-39-15 19:10:00 Test Item Value Reference Range Interpretation Comments Monocytes (test code = Monocytes) 6.9 2.0-12.0 [facility] CenterFqefxmmRMBFVSUBXN8561-72-14 19:10:00 Test Item Value Reference Range Interpretation Comments Segs (test code = Segs) 65.5 45.0-75.0 [facility] CenterCrovnjlMTYJFGOQBY1569-03-66 19:10:00 Test Item Value Reference Range Interpretation Comments Basophils (test code = 0.6 See_Comment [Aut omated message] The Basophils) system which ge nerated this result tra nsmitted reference range : <=1.0. The reference r lv was not used to int erpret this result as normal/abnormal . [facility] CenterUwouoleKBRLGBDBEI6594-05-44 19:10:00 Test Item Value Reference Range Interpretation Comments Eosinophils (test code = 2.0 See_Comment [A utomated message] The Eosinophils) system which ge nerated this result tra nsmitted reference range : <=4.0. The reference r lv was not used to int erpret this result as normal/abnormal . [facility] CenterYqbohlkQXPGOCTHGU1319-60-01 19:10:00 Test Item Value Reference Range Interpretation Comments WBC (test code = WBC) 6.1 3.7-10.4 [facility] CenterIxodxtvWOUUQKWUYF4431-07-56 19:10:00 Test Item Value Reference Range Interpretation Comments MPV (test code = MPV) 7.9 7.4-10.4 [facility] CenterEzxzgriBAOFTIXMRV0435-74-64 19:10:00 Test Item Value Reference Range Interpretation Comments Platelet (test code = Platelet) 226 133-450 [facility] CenterJdipzwoWCDHHPHBWM3399-36-29 19:10:00 Test Item Value Reference Range Interpretation Comments MCH (test code = MCH) 28.5 pg 27.0-31.0 [facility] CenterWwsupncXQQSZXBZZO6838-26-81 19:10:00 Test Item Value Reference Range Interpretation Comments RDW (test code = RDW) 14.8 11.5-14.5 [facility] CenterEboamntOCNZSJNLOT7241-91-80 19:10:00 Test Item Value Reference Range Interpretation Comments MCHC (test code = MCHC) 33.2 32.0-36.0 [facility] CenterRyefhfeOQXBZPWYBL4295-22-50 19:10:00 Test Item Value Reference Range Interpretation Comments Hct (test code = Hct) 30.8 36.0-48.0 [facility] CenterEzlqdonHWQVJRYFQD7228-55-15 19:10:00 Test Item Value Reference Range Interpretation Comments RBC (test code = RBC) 3.59 4.20-5.40 [facility] CenterNdbdcfaSOMQPVXKWO3830-51-85 19:10:00 Test Item Value Reference Range Interpretation Comments Hgb (test code = Hgb) 10.2 12.0-16.0 [facility] CenterPvjuianLBURPGTBXN0322-61-59 19:10:00 Test Item Value Reference Range Interpretation Comments MCV (test code = MCV) 85.9 80.0-98.0 [facility] CenterLsapxerTMYIHPLDDM5538-78-92 19:10:00 Test Item Value Reference Range Interpretation Comments Eosinophils # (test code 0.1 See_Comment [A utomated message] The = Eosinophils #) system whic h generated this result tra nsmitted reference range : <=0.5. The reference r lv was not used to int erpret this result as normal/abnormal . [facility] CenterSbosvvuPRHBTAVFIA2664-44-42 19:10:00 Test Item Value Reference Range Interpretation Comments Monocytes # (test code 0.4 See_Comment [Aut omated message] The = Monocytes #) system which generated this result tra nsmitted reference range : <=0.8. The reference r lv was not used to int erpret this result as normal/abnormal . [facility] CenterUfxmullSJEHKZPINU7658-32-63 19:10:00 Test Item Value Reference Range Interpretation Comments Segs-Bands # (test code = Segs-Bands #) 4.0 1.5-8.1 [facility] CenterTeqbcxaNBMRKLFDRV3971-72-18 19:10:00 Test Item Value Reference Range Interpretation Comments Lymphocytes # (test code = Lymphocytes 1.5 1.0-5.5 #) [facility] CenterYrdnfnaYHGYKTDJAX4409-29-62 19:10:00 Test Item Value Reference Range Interpretation Comments Basophils # (test code 0.0 See_Comment [Aut omated message] The = Basophils #) system which generated this result tra nsmitted reference range : <=0.2. The reference r lv was not used to int erpret this result as normal/abnormal . [facility] CenterWxxxhebXBVDFVUHWM1154-65-58 19:10:00 Test Item Value Reference Range Interpretation Comments Lymphocytes (test code = Lymphocytes) 25.0 20.0-40.0 [facility] CenterLxbfbuhOOHCHFNYYI5059-10-87 19:10:00 Test Item Value Reference Range Interpretation Comments Monocytes (test code = Monocytes) 6.9 2.0-12.0 [facility] CenterVagekxsASXHKHJSHU1236-67-42 19:10:00 Test Item Value Reference Range Interpretation Comments Segs (test code = Segs) 65.5 45.0-75.0 [facility] CenterVuzoepjTHXAKSQQSD4330-24-66 19:10:00 Test Item Value Reference Range Interpretation Comments Basophils (test code = 0.6 See_Comment [Aut omated message] The Basophils) system which ge nerated this result tra nsmitted reference range : <=1.0. The reference r lv was not used to int erpret this result as normal/abnormal . [facility] CenterTiqcshlWILLUYHEUN0572-49-79 19:10:00 Test Item Value Reference Range Interpretation Comments Eosinophils (test code = 2.0 See_Comment [A utomated message] The Eosinophils) system which ge nerated this result tra nsmitted reference range : <=4.0. The reference r lv was not used to int erpret this result as normal/abnormal . [facility] CenterAliqvzaJRFLJYNMQP7395-55-64 19:10:00 Test Item Value Reference Range Interpretation Comments WBC (test code = WBC) 6.1 3.7-10.4 [facility] CenterPbtprpeVFEDPRFSMS4735-07-53 19:10:00 Test Item Value Reference Range Interpretation Comments MPV (test code = MPV) 7.9 7.4-10.4 [facility] CenterExscminTILSFTJIAM1495-21-31 19:10:00 Test Item Value Reference Range Interpretation Comments Platelet (test code = Platelet) 226 133-450 [facility] CenterBemvxcdVCCFDOHGHT9876-76-77 19:10:00 Test Item Value Reference Range Interpretation Comments MCH (test code = MCH) 28.5 pg 27.0-31.0 [facility] CenterYcllgirMZLQFXKNTM4176-25-41 19:10:00 Test Item Value Reference Range Interpretation Comments RDW (test code = RDW) 14.8 11.5-14.5 [facility] CenterXkpvaemVZLUATTKXK1266-24-46 19:10:00 Test Item Value Reference Range Interpretation Comments MCHC (test code = MCHC) 33.2 32.0-36.0 [facility]LwtuylgBGNGTACTFM0957-07-95 19:10:00 Test Item Value Reference Range Interpretation Comments Hct (test code = Hct) 30.8 36.0-48.0 [facility] CenterVtvobejLWZATCRDRF5316-81-21 19:10:00 Test Item Value Reference Range Interpretation Comments RBC (test code = RBC) 3.59 4.20-5.40 [facility] CenterDnymoieGBPIMYDTQI3419-37-61 19:10:00 Test Item Value Reference Range Interpretation Comments Hgb (test code = Hgb) 10.2 12.0-16.0 [facility] CenterObfkfusRNQXYOBOEW0786-80-54 19:10:00 Test Item Value Reference Range Interpretation Comments MCV (test code = MCV) 85.9 80.0-98.0 [facility] CenterUgoljqeLEPTTJLVGT5887-66-51 19:10:00 Test Item Value Reference Range Interpretation Comments Eosinophils # (test code 0.1 See_Comment [A utomated message] The = Eosinophils #) system whic h generated this result tra nsmitted reference range : <=0.5. The reference r lv was not used to int erpret this result as normal/abnormal . [facility] CenterCuzubhtESCZKSRRLU0142-72-91 19:10:00 Test Item Value Reference Range Interpretation Comments Monocytes # (test code 0.4 See_Comment [Aut omated message] The = Monocytes #) system which generated this result tra nsmitted reference range : <=0.8. The reference r lv was not used to int erpret this result as normal/abnormal . [facility] CenterYxbncabQXRPTMPQCO1440-68-90 19:10:00 Test Item Value Reference Range Interpretation Comments Segs-Bands # (test code = Segs-Bands #) 4.0 1.5-8.1 [facility] CenterQpcldkfJCQVRSFBQO9546-68-32 19:10:00 Test Item Value Reference Range Interpretation Comments Lymphocytes # (test code = Lymphocytes 1.5 1.0-5.5 #) [facility] CenterNxuvwwqJZBEMRDLZM6442-80-36 19:10:00 Test Item Value Reference Range Interpretation Comments Basophils # (test code 0.0 See_Comment [Aut omated message] The = Basophils #) system which generated this result tra nsmitted reference range : <=0.2. The reference r lv was not used to int erpret this result as normal/abnormal . [facility] CenterSloeugqIMGCSPLQKA9229-08-50 19:10:00 Test Item Value Reference Range Interpretation Comments Lymphocytes (test code = Lymphocytes) 25.0 20.0-40.0 [facility] CenterDbcbhwzHWVLANJJQP2293-58-82 19:10:00 Test Item Value Reference Range Interpretation Comments Monocytes (test code = Monocytes) 6.9 2.0-12.0 [facility] CenterWprwpzuZYRZHJCLRM7093-36-98 19:10:00 Test Item Value Reference Range Interpretation Comments Segs (test code = Segs) 65.5 45.0-75.0 [facility] CenterRjpjkumIOZRZJZGNC8248-35-37 19:10:00 Test Item Value Reference Range Interpretation Comments Basophils (test code = 0.6 See_Comment [Aut omated message] The Basophils) system which ge nerated this result tra nsmitted reference range : <=1.0. The reference r lv was not used to int erpret this result as normal/abnormal . [facility] CenterLkeuhfoVPJUICXICX6703-65-65 19:10:00 Test Item Value Reference Range Interpretation Comments Eosinophils (test code = 2.0 See_Comment [A utomated message] The Eosinophils) system which ge nerated this result tra nsmitted reference range : <=4.0. The reference r lv was not used to int erpret this result as normal/abnormal . [facility] CenterSpminomQGXDJLKBMK8025-68-18 19:10:00 Test Item Value Reference Range Interpretation Comments WBC (test code = WBC) 6.1 3.7-10.4 [facility] CenterRbmmxtqGZOLPASLLE1568-76-86 19:10:00 Test Item Value Reference Range Interpretation Comments MPV (test code = MPV) 7.9 7.4-10.4 [facility] CenterQwnkohkLSHCIPULRX7469-47-89 19:10:00 Test Item Value Reference Range Interpretation Comments Platelet (test code = Platelet) 226 133-450 [facility] CenterIlohwnvJTPPAWYTVW4738-85-89 19:10:00 Test Item Value Reference Range Interpretation Comments MCH (test code = MCH) 28.5 pg 27.0-31.0 [facility] CenterVqhmprjEJKMPOHBQO3108-27-55 19:10:00 Test Item Value Reference Range Interpretation Comments RDW (test code = RDW) 14.8 11.5-14.5 [facility] CenterWaqookoHIUSGGEDFD8140-00-96 19:10:00 Test Item Value Reference Range Interpretation Comments MCHC (test code = MCHC) 33.2 32.0-36.0 [facility] CenterQmkcwkfRSOJMZYQJB3178-56-19 19:10:00 Test Item Value Reference Range Interpretation Comments Hct (test code = Hct) 30.8 36.0-48.0 [facility] CenterNkcbxegMNYVZDWTYA1421-19-00 19:10:00 Test Item Value Reference Range Interpretation Comments RBC (test code = RBC) 3.59 4.20-5.40 [facility] CenterSoabcscGUQRKAFACL2326-89-13 19:10:00 Test Item Value Reference Range Interpretation Comments Hgb (test code = Hgb) 10.2 12.0-16.0 [facility] CenterHmagptlQXUTISOGNC6571-74-09 19:10:00 Test Item Value Reference Range Interpretation Comments MCV (test code = MCV) 85.9 80.0-98.0 [facility] CenterLbkayvlDRGYJKRMQF8351-20-67 19:10:00 Test Item Value Reference Range Interpretation Comments Eosinophils # (test code 0.1 See_Comment [A utomated message] The = Eosinophils #) system whic h generated this result tra nsmitted reference range : <=0.5. The reference r lv was not used to int erpret this result as normal/abnormal . [facility] CenterWnflbxqIKSBLLSMYG2522-88-52 19:10:00 Test Item Value Reference Range Interpretation Comments Monocytes # (test code 0.4 See_Comment [Aut omated message] The = Monocytes #) system which generated this result tra nsmitted reference range : <=0.8. The reference r lv was not used to int erpret this result as normal/abnormal . [facility] CenterNaisioaAKMNVVAWDG1490-02-37 19:10:00 Test Item Value Reference Range Interpretation Comments Segs-Bands # (test code = Segs-Bands #) 4.0 1.5-8.1 [facility] CenterAfunjucYIYJMKEAAL9183-04-68 19:10:00 Test Item Value Reference Range Interpretation Comments Lymphocytes # (test code = Lymphocytes 1.5 1.0-5.5 #) [facility] CenterZbdcireFGAYXNPAQJ4740-02-61 19:10:00 Test Item Value Reference Range Interpretation Comments Basophils # (test code 0.0 See_Comment [Aut omated message] The = Basophils #) system which generated this result tra nsmitted reference range : <=0.2. The reference r lv was not used to int erpret this result as normal/abnormal . [facility] CenterAldnkscRSXCOGRAJM8779-77-08 19:10:00 Test Item Value Reference Range Interpretation Comments Lymphocytes (test code = Lymphocytes) 25.0 20.0-40.0 [facility] CenterXaivlzjKRVEIPEWZQ0655-14-27 19:10:00 Test Item Value Reference Range Interpretation Comments Monocytes (test code = Monocytes) 6.9 2.0-12.0 [facility] CenterColgcqoNMXXTUYFDE1535-49-08 19:10:00 Test Item Value Reference Range Interpretation Comments Segs (test code = Segs) 65.5 45.0-75.0 [facility] CenterRrfcxifFNYQQPCWOP5953-83-32 19:10:00 Test Item Value Reference Range Interpretation Comments Basophils (test code = 0.6 See_Comment [Aut omated message] The Basophils) system which ge nerated this result tra nsmitted reference range : <=1.0. The reference r lv was not used to int erpret this result as normal/abnormal . [facility] CenterMybqfapCLZVSUUGSQ5028-07-22 19:10:00 Test Item Value Reference Range Interpretation Comments Eosinophils (test code = 2.0 See_Comment [A utomated message] The Eosinophils) system which ge nerated this result tra nsmitted reference range : <=4.0. The reference r lv was not used to int erpret this result as normal/abnormal . [facility] CenterEpvzivlBDCVYTVYCQ1562-08-45 19:10:00 Test Item Value Reference Range Interpretation Comments WBC (test code = WBC) 6.1 3.7-10.4 [facility] CenterKrmisugOFMYFXRMHL4716-70-72 19:10:00 Test Item Value Reference Range Interpretation Comments MPV (test code = MPV) 7.9 7.4-10.4 [facility] CenterDxcdithZAATWSQLRO5599-76-95 19:10:00 Test Item Value Reference Range Interpretation Comments Platelet (test code = Platelet) 226 133-450 [facility] CenterSoowsgcXRLEEYRECR3798-70-08 19:10:00 Test Item Value Reference Range Interpretation Comments MCH (test code = MCH) 28.5 pg 27.0-31.0 [facility] CenterWlccrsbVQHYMRLHDW8470-86-33 19:10:00 Test Item Value Reference Range Interpretation Comments RDW (test code = RDW) 14.8 11.5-14.5 [facility] CenterSzutyrpBJBNYUBNUJ0289-67-01 19:10:00 Test Item Value Reference Range Interpretation Comments MCHC (test code = MCHC) 33.2 32.0-36.0 [facility] CenterJhktdyoHXAUPEOXVC1502-98-51 19:10:00 Test Item Value Reference Range Interpretation Comments Hct (test code = Hct) 30.8 36.0-48.0 [facility] CenterSczbhfyOFEKVHLLBD3832-25-31 19:10:00 Test Item Value Reference Range Interpretation Comments RBC (test code = RBC) 3.59 4.20-5.40 [facility] CenterKwwzoxgKNKEUJXQJX5241-38-67 19:10:00 Test Item Value Reference Range Interpretation Comments Hgb (test code = Hgb) 10.2 12.0-16.0 [facility] CenterQylfoxjVWJIJJBBYX1941-31-35 19:10:00 Test Item Value Reference Range Interpretation Comments MCV (test code = MCV) 85.9 80.0-98.0 [facility] CenterFjstfreQEYOUMOSZP8956-41-81 19:10:00 Test Item Value Reference Range Interpretation Comments Eosinophils # (test code 0.1 See_Comment [A utomated message] The = Eosinophils #) system whic h generated this result tra nsmitted reference range : <=0.5. The reference r lv was not used to int erpret this result as normal/abnormal . [facility] CenterWnfaohjOMYMRBIEWG9897-94-04 19:10:00 Test Item Value Reference Range Interpretation Comments Monocytes # (test code 0.4 See_Comment [Aut omated message] The = Monocytes #) system which generated this result tra nsmitted reference range : <=0.8. The reference r lv was not used to int erpret this result as normal/abnormal . [facility] CenterLdagwtgBXPPWGUQUH6340-55-26 19:10:00 Test Item Value Reference Range Interpretation Comments Segs-Bands # (test code = Segs-Bands #) 4.0 1.5-8.1 [facility] CenterBilsjtwRGDKKSULLF4950-68-41 19:10:00 Test Item Value Reference Range Interpretation Comments Lymphocytes # (test code = Lymphocytes 1.5 1.0-5.5 #) [facility] CenterUcsgtvjJXMPMHUCSY0619-42-27 19:10:00 Test Item Value Reference Range Interpretation Comments Basophils # (test code 0.0 See_Comment [Aut omated message] The = Basophils #) system which generated this result tra nsmitted reference range : <=0.2. The reference r lv was not used to int erpret this result as normal/abnormal . [facility] CenterMcuecalAVGHUKHTWE7972-77-15 19:10:00 Test Item Value Reference Range Interpretation Comments Lymphocytes (test code = Lymphocytes) 25.0 20.0-40.0 [facility] CenterGacipabHUWVKBKRCE1045-87-40 19:10:00 Test Item Value Reference Range Interpretation Comments Monocytes (test code = Monocytes) 6.9 2.0-12.0 [facility] CenterNxqvlkxYGAWUVYNIP9383-42-44 19:10:00 Test Item Value Reference Range Interpretation Comments Segs (test code = Segs) 65.5 45.0-75.0 [facility] CenterWswkdnnHUPABMYFRO1180-84-69 19:10:00 Test Item Value Reference Range Interpretation Comments Basophils (test code = 0.6 See_Comment [Aut omated message] The Basophils) system which ge nerated this result tra nsmitted reference range : <=1.0. The reference r lv was not used to int erpret this result as normal/abnormal . [facility] CenterYlpxxnlURCCDYXEWX4018-62-80 19:10:00 Test Item Value Reference Range Interpretation Comments Eosinophils (test code = 2.0 See_Comment [A utomated message] The Eosinophils) system which ge nerated this result tra nsmitted reference range : <=4.0. The reference r lv was not used to int erpret this result as normal/abnormal . [facility] CenterSidtaopOKDABXQVWC1416-40-38 19:10:00 Test Item Value Reference Range Interpretation Comments WBC (test code = WBC) 6.1 3.7-10.4 [facility] CenterPceyhqkCSQQYHXFTG1873-41-99 19:10:00 Test Item Value Reference Range Interpretation Comments MPV (test code = MPV) 7.9 7.4-10.4 [facility] CenterYyskfxbUEFOQYEWWU0342-22-07 19:10:00 Test Item Value Reference Range Interpretation Comments Platelet (test code = Platelet) 226 133-450 [facility] CenterMsmkrhsFPQHWXYTQK1932-92-10 19:10:00 Test Item Value Reference Range Interpretation Comments MCH (test code = MCH) 28.5 pg 27.0-31.0 [facility] CenterGkkonxeLOAKMHKBJF8786-25-97 19:10:00 Test Item Value Reference Range Interpretation Comments RDW (test code = RDW) 14.8 11.5-14.5 [facility] CenterElygboqWDWPEHILGM6212-56-65 19:10:00 Test Item Value Reference Range Interpretation Comments MCHC (test code = MCHC) 33.2 32.0-36.0 [facility] CenterYcnbvubLJPKCZSMLX9757-07-80 19:10:00 Test Item Value Reference Range Interpretation Comments Hct (test code = Hct) 30.8 36.0-48.0 [facility] CenterJjglqwnPGWGMBEAJH0747-69-17 19:10:00 Test Item Value Reference Range Interpretation Comments RBC (test code = RBC) 3.59 4.20-5.40 [facility] CenterQoukngzCMBPGXHKPL6610-60-90 19:10:00 Test Item Value Reference Range Interpretation Comments Hgb (test code = Hgb) 10.2 12.0-16.0 [facility] CenterDzbxsybDHFXXYSITR6258-05-76 19:10:00 Test Item Value Reference Range Interpretation Comments MCV (test code = MCV) 85.9 80.0-98.0 [facility] CenterZqyqyvfKTFDTIJHHT9371-32-43 19:10:00 Test Item Value Reference Range Interpretation Comments Eosinophils # (test code 0.1 See_Comment [A utomated message] The = Eosinophils #) system whic h generated this result tra nsmitted reference range : <=0.5. The reference r lv was not used to int erpret this result as normal/abnormal . [facility] CenterFgjsgwmVQDVLJOZXO3502-02-96 19:10:00 Test Item Value Reference Range Interpretation Comments Monocytes # (test code 0.4 See_Comment [Aut omated message] The = Monocytes #) system which generated this result tra nsmitted reference range : <=0.8. The reference r lv was not used to int erpret this result as normal/abnormal . [facility] CenterGqevduxVSUFIKPDNF1836-48-93 19:10:00 Test Item Value Reference Range Interpretation Comments Segs-Bands # (test code = Segs-Bands #) 4.0 1.5-8.1 [facility] CenterDvwyklvKKRBIVDBLS2384-56-05 19:10:00 Test Item Value Reference Range Interpretation Comments Lymphocytes # (test code = Lymphocytes 1.5 1.0-5.5 #) [facility] CenterRvskfygFDIQWGQXIP7369-13-32 19:10:00 Test Item Value Reference Range Interpretation Comments Basophils # (test code 0.0 See_Comment [Aut omated message] The = Basophils #) system which generated this result tra nsmitted reference range : <=0.2. The reference r lv was not used to int erpret this result as normal/abnormal . [facility] CenterLznapjnJOEUEHKSSV0452-76-69 19:10:00 Test Item Value Reference Range Interpretation Comments Lymphocytes (test code = Lymphocytes) 25.0 20.0-40.0 [facility] CenterFvtvibbGPBUJQHSJL4878-78-97 19:10:00 Test Item Value Reference Range Interpretation Comments Monocytes (test code = Monocytes) 6.9 2.0-12.0 [facility] CenterGpftccxEJCUORBYEK1148-57-80 19:10:00 Test Item Value Reference Range Interpretation Comments Segs (test code = Segs) 65.5 45.0-75.0 [facility] CenterTfyewzrWVBDIRJAPD5110-36-15 19:10:00 Test Item Value Reference Range Interpretation Comments Basophils (test code = 0.6 See_Comment [Aut omated message] The Basophils) system which ge nerated this result tra nsmitted reference range : <=1.0. The reference r lv was not used to int erpret this result as normal/abnormal . [facility] CenterWrmpkotUQEALSNVDF0626-12-61 19:10:00 Test Item Value Reference Range Interpretation Comments Eosinophils (test code = 2.0 See_Comment [A utomated message] The Eosinophils) system which ge nerated this result tra nsmitted reference range : <=4.0. The reference r lv was not used to int erpret this result as normal/abnormal . [facility] CenterPndhmdjVWSWBIOHAT8432-65-73 19:10:00 Test Item Value Reference Range Interpretation Comments WBC (test code = WBC) 6.1 3.7-10.4 [facility] CenterAmrwlmtFSWPWHZFES7621-53-98 19:10:00 Test Item Value Reference Range Interpretation Comments MPV (test code = MPV) 7.9 7.4-10.4 [facility] CenterSsoutohHFWUJTPCWB8145-59-21 19:10:00 Test Item Value Reference Range Interpretation Comments Platelet (test code = Platelet) 226 133-450 [facility] CenterJcrhglxUDZEXUWQSO3764-81-29 19:10:00 Test Item Value Reference Range Interpretation Comments MCH (test code = MCH) 28.5 pg 27.0-31.0 [facility] CenterLgdwtszCILXPELBHN2353-95-13 19:10:00 Test Item Value Reference Range Interpretation Comments RDW (test code = RDW) 14.8 11.5-14.5 [facility] CenterEuipaccWXDAKHYMWY8079-51-21 19:10:00 Test Item Value Reference Range Interpretation Comments MCHC (test code = MCHC) 33.2 32.0-36.0 [facility] CenterFmtdivxHNAOAKELQD7812-50-19 19:10:00 Test Item Value Reference Range Interpretation Comments Hct (test code = Hct) 30.8 36.0-48.0 [facility] CenterHiieumySVDGZKXHSW7920-41-05 19:10:00 Test Item Value Reference Range Interpretation Comments RBC (test code = RBC) 3.59 4.20-5.40 [facility] CenterQaqowlpSFAWCIIZQU7612-98-80 19:10:00 Test Item Value Reference Range Interpretation Comments Hgb (test code = Hgb) 10.2 12.0-16.0 [facility] CenterMkdaxuoQQYNQRGTEI0954-08-55 19:10:00 Test Item Value Reference Range Interpretation Comments MCV (test code = MCV) 85.9 80.0-98.0 [facility] CenterSrgxwweCOBNCNZVBS0518-61-31 19:10:00 Test Item Value Reference Range Interpretation Comments Eosinophils # (test code 0.1 See_Comment [A utomated message] The = Eosinophils #) system whic h generated this result tra nsmitted reference range : <=0.5. The reference r lv was not used to int erpret this result as normal/abnormal . [facility] CenterMnqqmxuIUNVJQUOWS0572-94-89 19:10:00 Test Item Value Reference Range Interpretation Comments Monocytes # (test code 0.4 See_Comment [Aut omated message] The = Monocytes #) system which generated this result tra nsmitted reference range : <=0.8. The reference r lv was not used to int erpret this result as normal/abnormal . [facility] CenterQjxpepcTQXEHCGQPW6029-37-55 19:10:00 Test Item Value Reference Range Interpretation Comments Segs-Bands # (test code = Segs-Bands #) 4.0 1.5-8.1 [facility] CenterHlkfarcMMTTLBZQOQ5302-02-17 19:10:00 Test Item Value Reference Range Interpretation Comments Lymphocytes # (test code = Lymphocytes 1.5 1.0-5.5 #) [facility] CenterAoaxpwvNVZPTLNSVG4454-48-52 19:10:00 Test Item Value Reference Range Interpretation Comments Basophils # (test code 0.0 See_Comment [Aut omated message] The = Basophils #) system which generated this result tra nsmitted reference range : <=0.2. The reference r lv was not used to int erpret this result as normal/abnormal . [facility] CenterQjjboorMNNCRDSQZY3731-21-93 19:10:00 Test Item Value Reference Range Interpretation Comments Lymphocytes (test code = Lymphocytes) 25.0 20.0-40.0 [facility] CenterCgzwbjhMOWOPHXUJL7195-41-00 19:10:00 Test Item Value Reference Range Interpretation Comments Monocytes (test code = Monocytes) 6.9 2.0-12.0 [facility] CenterHmkcbnzQTEELDREPD9433-25-55 19:10:00 Test Item Value Reference Range Interpretation Comments Segs (test code = Segs) 65.5 45.0-75.0 [facility] CenterJbkpyduQDYKOKDOHA3404-95-10 19:10:00 Test Item Value Reference Range Interpretation Comments Basophils (test code = 0.6 See_Comment [Aut omated message] The Basophils) system which ge nerated this result tra nsmitted reference range : <=1.0. The reference r lv was not used to int erpret this result as normal/abnormal . [facility] CenterMzoepknCNWKRQDOIX9084-09-10 19:10:00 Test Item Value Reference Range Interpretation Comments Eosinophils (test code = 2.0 See_Comment [A utomated message] The Eosinophils) system which ge nerated this result tra nsmitted reference range : <=4.0. The reference r lv was not used to int erpret this result as normal/abnormal . [facility] CenterKavvpdkUFUMXPHPGK0395-53-77 19:10:00 Test Item Value Reference Range Interpretation Comments WBC (test code = WBC) 6.1 3.7-10.4 [facility] CenterHluxnokFZRSWYMSIR5825-71-78 19:10:00 Test Item Value Reference Range Interpretation Comments MPV (test code = MPV) 7.9 7.4-10.4 [facility] CenterAzxrwvlCIGZNTYHAI1857-33-67 19:10:00 Test Item Value Reference Range Interpretation Comments Platelet (test code = Platelet) 226 133-450 [facility] CenterYhwghplGKPRNRWEPN4832-98-47 19:10:00 Test Item Value Reference Range Interpretation Comments MCH (test code = MCH) 28.5 pg 27.0-31.0 [facility] CenterUldnfdvGOTENLNPGX3010-39-17 19:10:00 Test Item Value Reference Range Interpretation Comments RDW (test code = RDW) 14.8 11.5-14.5 [facility] CenterPguqovdDPGGEQKJLF3383-54-43 19:10:00 Test Item Value Reference Range Interpretation Comments MCHC (test code = MCHC) 33.2 32.0-36.0 [facility] CenterWmthqblLPQQOVYXCF6902-42-80 19:10:00 Test Item Value Reference Range Interpretation Comments Hct (test code = Hct) 30.8 36.0-48.0 [facility] CenterCmcqeoeQIHBQEYJKG0682-33-80 19:10:00 Test Item Value Reference Range Interpretation Comments RBC (test code = RBC) 3.59 4.20-5.40 [facility] CenterIuhdafsGHVTFEIAEF6276-08-41 19:10:00 Test Item Value Reference Range Interpretation Comments Hgb (test code = Hgb) 10.2 12.0-16.0 [facility] CenterYkypomxTINHRNDTTL0415-68-80 19:10:00 Test Item Value Reference Range Interpretation Comments MCV (test code = MCV) 85.9 80.0-98.0 [facility] CenterLfjarevNSGUKUBFAX6205-78-75 19:10:00 Test Item Value Reference Range Interpretation Comments Eosinophils # (test code 0.1 See_Comment [A utomated message] The = Eosinophils #) system whic h generated this result tra nsmitted reference range : <=0.5. The reference r lv was not used to int erpret this result as normal/abnormal . [facility] CenterZauyopaVGTTDVMLJO9607-39-57 19:10:00 Test Item Value Reference Range Interpretation Comments Monocytes # (test code 0.4 See_Comment [Aut omated message] The = Monocytes #) system which generated this result tra nsmitted reference range : <=0.8. The reference r lv was not used to int erpret this result as normal/abnormal . [facility] CenterSivmmjcXCLIFIPNPA2001-58-66 19:10:00 Test Item Value Reference Range Interpretation Comments Segs-Bands # (test code = Segs-Bands #) 4.0 1.5-8.1 [facility] CenterTadzxpoPBGXUZXTKF7849-41-55 19:10:00 Test Item Value Reference Range Interpretation Comments Lymphocytes # (test code = Lymphocytes 1.5 1.0-5.5 #) [facility] CenterWrgcyygIMGXYOBTUR1272-11-94 19:10:00 Test Item Value Reference Range Interpretation Comments Basophils # (test code 0.0 See_Comment [Aut omated message] The = Basophils #) system which generated this result tra nsmitted reference range : <=0.2. The reference r lv was not used to int erpret this result as normal/abnormal . [facility] CenterZjfvgbdGCNELTJUBM4478-46-28 19:10:00 Test Item Value Reference Range Interpretation Comments Lymphocytes (test code = Lymphocytes) 25.0 20.0-40.0 [facility] CenterWwuierhQCZMQXFDFT4969-23-48 19:10:00 Test Item Value Reference Range Interpretation Comments Monocytes (test code = Monocytes) 6.9 2.0-12.0 [facility] CenterSdlltskROWZKCFMMK2503-97-74 19:10:00 Test Item Value Reference Range Interpretation Comments Segs (test code = Segs) 65.5 45.0-75.0 [facility] CenterQgvluepWYNTFPHXOA9337-80-74 19:10:00 Test Item Value Reference Range Interpretation Comments Basophils (test code = 0.6 See_Comment [Aut omated message] The Basophils) system which ge nerated this result tra nsmitted reference range : <=1.0. The reference r lv was not used to int erpret this result as normal/abnormal . [facility] CenterUtrwgkmLJTIWRAMDH3739-63-49 19:10:00 Test Item Value Reference Range Interpretation Comments Eosinophils (test code = 2.0 See_Comment [A utomated message] The Eosinophils) system which ge nerated this result tra nsmitted reference range : <=4.0. The reference r lv was not used to int erpret this result as normal/abnormal . [facility] CenterZexzwklKYVEDFPOKL6902-20-10 19:10:00 Test Item Value Reference Range Interpretation Comments WBC (test code = WBC) 6.1 3.7-10.4 [facility] CenterOfyzbdtVAEBVAQQEZ7702-66-18 19:10:00 Test Item Value Reference Range Interpretation Comments MPV (test code = MPV) 7.9 7.4-10.4 [facility] CenterTslfckxWFLSAHHFBJ3599-33-31 19:10:00 Test Item Value Reference Range Interpretation Comments Platelet (test code = Platelet) 226 133-450 [facility] CenterYrrxllpTYXNASHKLM3528-52-66 19:10:00 Test Item Value Reference Range Interpretation Comments MCH (test code = MCH) 28.5 pg 27.0-31.0 [facility] CenterLmmqrkzVVTGEFXEGZ5854-02-74 19:10:00 Test Item Value Reference Range Interpretation Comments RDW (test code = RDW) 14.8 11.5-14.5 [facility] CenterAxiiampOEWBFOFTMO8161-87-43 19:10:00 Test Item Value Reference Range Interpretation Comments MCHC (test code = MCHC) 33.2 32.0-36.0 [facility] CenterNgyusixOLUOAYNNKT3429-84-66 19:10:00 Test Item Value Reference Range Interpretation Comments Hct (test code = Hct) 30.8 36.0-48.0 [facility] CenterMwedloaKOTWIVQGUX7748-57-62 19:10:00 Test Item Value Reference Range Interpretation Comments RBC (test code = RBC) 3.59 4.20-5.40 [facility] CenterUofgvtfNGILUUJEBO2605-32-85 19:10:00 Test Item Value Reference Range Interpretation Comments Hgb (test code = Hgb) 10.2 12.0-16.0 [facility] CenterDkzmyfeNDLGJWJQMW2996-53-37 19:10:00 Test Item Value Reference Range Interpretation Comments MCV (test code = MCV) 85.9 80.0-98.0 [facility] CenterUpebwwpGQCMHEHDFB4389-75-77 19:10:00 Test Item Value Reference Range Interpretation Comments Eosinophils # (test code 0.1 See_Comment [A utomated message] The = Eosinophils #) system whic h generated this result tra nsmitted reference range : <=0.5. The reference r lv was not used to int erpret this result as normal/abnormal . [facility] CenterUnpmeufJICMKHHUDP1678-23-97 19:10:00 Test Item Value Reference Range Interpretation Comments Monocytes # (test code 0.4 See_Comment [Aut omated message] The = Monocytes #) system which generated this result tra nsmitted reference range : <=0.8. The reference r lv was not used to int erpret this result as normal/abnormal . [facility] CenterZhbgdokQZMGMTZKBD3592-08-91 19:10:00 Test Item Value Reference Range Interpretation Comments Segs-Bands # (test code = Segs-Bands #) 4.0 1.5-8.1 [facility] CenterYmlgselYFCORGNQBL0090-89-04 19:10:00 Test Item Value Reference Range Interpretation Comments Lymphocytes # (test code = Lymphocytes 1.5 1.0-5.5 #) [facility] CenterAtvdkhnCVMPUKTEOB4507-00-05 19:10:00 Test Item Value Reference Range Interpretation Comments Basophils # (test code 0.0 See_Comment [Aut omated message] The = Basophils #) system which generated this result tra nsmitted reference range : <=0.2. The reference r lv was not used to int erpret this result as normal/abnormal . [facility] CenterBmlnhutIEGKNTETES6065-85-44 19:10:00 Test Item Value Reference Range Interpretation Comments Lymphocytes (test code = Lymphocytes) 25.0 20.0-40.0 [facility] CenterJkutjzuNULGIZUYJH7906-12-38 19:10:00 Test Item Value Reference Range Interpretation Comments Monocytes (test code = Monocytes) 6.9 2.0-12.0 [facility] CenterGxguyehZXDRUTOYHW5667-26-35 19:10:00 Test Item Value Reference Range Interpretation Comments Segs (test code = Segs) 65.5 45.0-75.0 [facility] CenterDbiczucCXGAZKXJWM3293-92-76 19:10:00 Test Item Value Reference Range Interpretation Comments Basophils (test code = 0.6 See_Comment [Aut omated message] The Basophils) system which ge nerated this result tra nsmitted reference range : <=1.0. The reference r lv was not used to int erpret this result as normal/abnormal . [facility] CenterRzsgenqSTWQOTLCYZ8076-32-32 19:10:00 Test Item Value Reference Range Interpretation Comments Eosinophils (test code = 2.0 See_Comment [A utomated message] The Eosinophils) system which ge nerated this result tra nsmitted reference range : <=4.0. The reference r lv was not used to int erpret this result as normal/abnormal . [facility] CenterEeatoysBGTDWDJXPG3216-84-71 19:10:00 Test Item Value Reference Range Interpretation Comments WBC (test code = WBC) 6.1 3.7-10.4 [facility] CenterNehullmMZREVMCKNY9434-26-88 19:10:00 Test Item Value Reference Range Interpretation Comments MPV (test code = MPV) 7.9 7.4-10.4 [facility] CenterQhvncrgIYUMTQWRUZ6228-45-69 19:10:00 Test Item Value Reference Range Interpretation Comments Platelet (test code = Platelet) 226 133-450 [facility] CenterLanmuuyOEGBTWDFGG9452-06-94 19:10:00 Test Item Value Reference Range Interpretation Comments MCH (test code = MCH) 28.5 pg 27.0-31.0 [facility] CenterWytioizJDDXIJITJH6672-19-83 19:10:00 Test Item Value Reference Range Interpretation Comments RDW (test code = RDW) 14.8 11.5-14.5 [facility] CenterSauvwkuDFMDXVUVRH0251-41-31 19:10:00 Test Item Value Reference Range Interpretation Comments MCHC (test code = MCHC) 33.2 32.0-36.0 [facility] CenterZvjmwvbQEHSOPLSBZ5087-43-74 19:10:00 Test Item Value Reference Range Interpretation Comments Hct (test code = Hct) 30.8 36.0-48.0 [facility] CenterRmpitivEYASQXTNKH6442-36-21 19:10:00 Test Item Value Reference Range Interpretation Comments RBC (test code = RBC) 3.59 4.20-5.40 [facility] CenterHamgcnwIWGIUQYDNA9947-97-50 19:10:00 Test Item Value Reference Range Interpretation Comments Hgb (test code = Hgb) 10.2 12.0-16.0 [facility] CenterOdkgxcwRSNYCDMBQC6823-87-81 19:10:00 Test Item Value Reference Range Interpretation Comments MCV (test code = MCV) 85.9 80.0-98.0 [facility] CenterMxfuqojKYHMQTGXSL5477-53-22 19:10:00 Test Item Value Reference Range Interpretation Comments Eosinophils # (test code 0.1 See_Comment [A utomated message] The = Eosinophils #) system whic h generated this result tra nsmitted reference range : <=0.5. The reference r lv was not used to int erpret this result as normal/abnormal . [facility] CenterGjjbslkRTFPVRXIBA6766-45-27 19:10:00 Test Item Value Reference Range Interpretation Comments Monocytes # (test code 0.4 See_Comment [Aut omated message] The = Monocytes #) system which generated this result tra nsmitted reference range : <=0.8. The reference r lv was not used to int erpret this result as normal/abnormal . [facility] CenterCymkmfbUHJOVGDMKY0091-82-78 19:10:00 Test Item Value Reference Range Interpretation Comments Segs-Bands # (test code = Segs-Bands #) 4.0 1.5-8.1 [facility] CenterTmwmjstJSFCHFBIXM5117-96-34 19:10:00 Test Item Value Reference Range Interpretation Comments Lymphocytes # (test code = Lymphocytes 1.5 1.0-5.5 #) [facility] CenterOtbimuuPTREGOUWKB0894-99-52 19:10:00 Test Item Value Reference Range Interpretation Comments Basophils # (test code 0.0 See_Comment [Aut omated message] The = Basophils #) system which generated this result tra nsmitted reference range : <=0.2. The reference r lv was not used to int erpret this result as normal/abnormal . [facility] CenterOufyivoZUFSMGSODN3908-24-22 19:10:00 Test Item Value Reference Range Interpretation Comments Lymphocytes (test code = Lymphocytes) 25.0 20.0-40.0 [facility] CenterKeaxiioAKDKFBSVFH1361-08-29 19:10:00 Test Item Value Reference Range Interpretation Comments Monocytes (test code = Monocytes) 6.9 2.0-12.0 [facility] CenterAeibrhdVRQUVZEEEL2953-56-97 19:10:00 Test Item Value Reference Range Interpretation Comments Segs (test code = Segs) 65.5 45.0-75.0 [facility] CenterXmigzxcYCNZVJYTVO7344-10-25 19:10:00 Test Item Value Reference Range Interpretation Comments Basophils (test code = 0.6 See_Comment [Aut omated message] The Basophils) system which ge nerated this result tra nsmitted reference range : <=1.0. The reference r lv was not used to int erpret this result as normal/abnormal . [facility] CenterXjjrfyuZWRHXECUIT1529-55-10 19:10:00 Test Item Value Reference Range Interpretation Comments Eosinophils (test code = 2.0 See_Comment [A utomated message] The Eosinophils) system which ge nerated this result tra nsmitted reference range : <=4.0. The reference r lv was not used to int erpret this result as normal/abnormal . [facility] CenterMtzfztbLWIAOQCBCW8735-56-32 19:07:00 Test Item Value Reference Range Interpretation Comments Sed Rate (test code = 84 See_Comment [Auto mated message] The Sed Rate) system which ge nerated this result transmit neli reference range : <=20. The reference range was not used to interpr et this result as felipe l/abnormal. [facility] CenterSenejsrMKXKIVBOJT2188-96-07 19:07:00 Test Item Value Reference Range Interpretation Comments Sed Rate (test code = 84 See_Comment [Auto mated message] The Sed Rate) system which ge nerated this result transmit neli reference range : <=20. The reference range was not used to interpr et this result as felipe l/abnormal. [facility] CenterNwonvxqFBRXGGINJX2942-60-98 19:07:00 Test Item Value Reference Range Interpretation Comments Sed Rate (test code = 84 See_Comment [Auto mated message] The Sed Rate) system which ge nerated this result transmit neli reference range : <=20. The reference range was not used to interpr et this result as felipe l/abnormal. [facility] CenterJrrnghbRPZFYNNAXZ6705-86-54 19:07:00 Test Item Value Reference Range Interpretation Comments Sed Rate (test code = 84 See_Comment [Auto mated message] The Sed Rate) system which ge nerated this result transmit neli reference range : <=20. The reference range was not used to interpr et this result as felipe l/abnormal. [facility] CenterPfvqcsaQPWXZOTHRI9146-41-95 19:07:00 Test Item Value Reference Range Interpretation Comments Sed Rate (test code = 84 See_Comment [Auto mated message] The Sed Rate) system which ge nerated this result transmit neli reference range : <=20. The reference range was not used to interpr et this result as felipe l/abnormal. [facility] CenterPceojqfDBOGRZTUJF5472-74-34 19:07:00 Test Item Value Reference Range Interpretation Comments Sed Rate (test code = 84 See_Comment [Auto mated message] The Sed Rate) system which ge nerated this result transmit neli reference range : <=20. The reference range was not used to interpr et this result as felipe l/abnormal. [facility] CenterTogcwbmJUGRFECJWZ5422-75-70 19:07:00 Test Item Value Reference Range Interpretation Comments Sed Rate (test code = 84 See_Comment [Auto mated message] The Sed Rate) system which ge nerated this result transmit neli reference range : <=20. The reference range was not used to interpr et this result as felipe l/abnormal. [facility] CenterMyctcirWWBVMFSFTP6141-61-63 19:07:00 Test Item Value Reference Range Interpretation Comments Sed Rate (test code = 84 See_Comment [Auto mated message] The Sed Rate) system which ge nerated this result transmit neli reference range : <=20. The reference range was not used to interpr et this result as felipe l/abnormal. [facility] CenterYbzmbdiYQSGUKTIGL1016-12-79 19:07:00 Test Item Value Reference Range Interpretation Comments Sed Rate (test code = 84 See_Comment [Auto mated message] The Sed Rate) system which ge nerated this result transmit neli reference range : <=20. The reference range was not used to interpr et this result as fleipe l/abnormal. [facility] CenterPedekqmDBDOLXJETW5228-49-46 19:07:00 Test Item Value Reference Range Interpretation Comments Sed Rate (test code = 84 See_Comment [Auto mated message] The Sed Rate) system which ge nerated this result transmit neli reference range : <=20. The reference range was not used to interpr et this result as felipe l/abnormal. [facility] CenterIxtpxlxDJUVRBGOZU9176-20-05 19:07:00 Test Item Value Reference Range Interpretation Comments Sed Rate (test code = 84 See_Comment [Auto mated message] The Sed Rate) system which ge nerated this result transmit neli reference range : <=20. The reference range was not used to interpr et this result as felipe l/abnormal. [facility] CenterMfmczskNFPSBFNXWT2467-73-44 19:07:00 Test Item Value Reference Range Interpretation Comments Sed Rate (test code = 84 See_Comment [Auto mated message] The Sed Rate) system which ge nerated this result transmit neli reference range : <=20. The reference range was not used to interpr et this result as felipe l/abnormal. [facility]2017-02-20 18:33:00 Test Item Value Reference Range Interpretation Comments Lactic Acid Lvl (test code = Lactic 1.3 0.5-2.2 Acid Lvl) [facility]2017-02-20 18:33:00 Test Item Value Reference Range Interpretation Comments eGFR (test code = eGFR) 91 [facility]2017-02-20 18:33:00 Test Item Value Reference Range Interpretation Comments B/C Ratio (test code = B/C Ratio) 19 6-25 [facility]2017-02-20 18:33:00 Test Item Value Reference Range Interpretation Comments A/G Ratio (test code = A/G Ratio) 0.6 0.7-1.6 [facility]2017-02-20 18:33:00 Test Item Value Reference Range Interpretation Comments Globulin (test code = Globulin) 4.7 2.7-4.2 [facility]2017-02-20 18:33:00 Test Item Value Reference Range Interpretation Comments AGAP (test code = AGAP) 12.0 10.0-20.0 [facility]2017-02-20 18:33:00 Test Item Value Reference Range Interpretation Comments Bili Total (test code = Bili Total) 0.2 0.2-1.3 [facility]2017-02-20 18:33:00 Test Item Value Reference Range Interpretation Comments Alk Phos (test code = Alk Phos) 116 39-136 [facility]2017-02-20 18:33:00 Test Item Value Reference Range Interpretation Comments CO2 (test code = CO2) 30 24-32 [facility]2017-02-20 18:33:00 Test Item Value Reference Range Interpretation Comments Chloride Lvl (test code = Chloride Lvl) 99 95-109 [facility]2017-02-20 18:33:00 Test Item Value Reference Range Interpretation Comments BUN (test code = BUN) 14 7-22 [facility]2017-02-20 18:33:00 Test Item Value Reference Range Interpretation Comments Glucose Lvl (test code = Glucose Lvl) 128 70-99 [facility]2017-02-20 18:33:00 Test Item Value Reference Range Interpretation Comments Creatinine Lvl (test code = Creatinine 0.74 0.50-1.40 Lvl) [facility]2017-02-20 18:33:00 Test Item Value Reference Range Interpretation Comments Potassium Lvl (test code = Potassium 5.0 3.5-5.1 Lvl) [facility]2017-02-20 18:33:00 Test Item Value Reference Range Interpretation Comments Sodium Lvl (test code = Sodium Lvl) 136 135-145 [facility]2017-02-20 18:33:00 Test Item Value Reference Range Interpretation Comments Total Protein (test code = Total 7.7 6.4-8.4 Protein) [facility]2017-02-20 18:33:00 Test Item Value Reference Range Interpretation Comments Calcium Lvl (test code = Calcium Lvl) 8.7 8.5-10.5 [facility]2017-02-20 18:33:00 Test Item Value Reference Range Interpretation Comments ALT (test code = ALT) 21 See_Comment [Auto mated message] The system which ge nerated this result transmit neli reference range : <=65. The reference range was not used to interpr et this result as felipe l/abnormal. [facility]2017-02-20 18:33:00 Test Item Value Reference Range Interpretation Comments Albumin Lvl (test code = Albumin Lvl) 3.0 3.5-5.0 [facility]2017-02-20 18:33:00 Test Item Value Reference Range Interpretation Comments AST (test code = AST) 27 See_Comment [Auto mated message] The system which ge nerated this result transmit neli reference range : <=37. The reference range was not used to interpr et this result as felipe l/abnormal. [facility]6047[facility] 18:33:00 Test Item Value Reference Range Interpretation Comments C-REACTIVE PROTEIN (test code = 44.4 C-REACTIVE PROTEIN) [facility]2017-02-20 18:33:00 Test Item Value Reference Range Interpretation Comments Lactic Acid Lvl (test code = Lactic 1.3 0.5-2.2 Acid Lvl) [facility]2017-02-20 18:33:00 Test Item Value Reference Range Interpretation Comments eGFR (test code = eGFR) 91 [facility]2017-02-20 18:33:00 Test Item Value Reference Range Interpretation Comments B/C Ratio (test code = B/C Ratio) 19 6-25 [place] 294247-02-20 18:33:00 Test Item Value Reference Range Interpretation Comments A/G Ratio (test code = A/G Ratio) 0.6 0.7-1.6 [facility]2017-02-20 18:33:00 Test Item Value Reference Range Interpretation Comments Globulin (test code = Globulin) 4.7 2.7-4.2 [facility]2017-02-20 18:33:00 Test Item Value Reference Range Interpretation Comments AGAP (test code = AGAP) 12.0 10.0-20.0 [facility]2017-02-20 18:33:00 Test Item Value Reference Range Interpretation Comments Bili Total (test code = Bili Total) 0.2 0.2-1.3 [facility]2017-02-20 18:33:00 Test Item Value Reference Range Interpretation Comments Alk Phos (test code = Alk Phos) 116 39-136 [facility]2017-02-20 18:33:00 Test Item Value Reference Range Interpretation Comments CO2 (test code = CO2) 30 24-32 [facility]2017-02-20 18:33:00 Test Item Value Reference Range Interpretation Comments Chloride Lvl (test code = Chloride Lvl) 99 95-109 [facility]2017-02-20 18:33:00 Test Item Value Reference Range Interpretation Comments BUN (test code = BUN) 14 7-22 [facility]2017-02-20 18:33:00 Test Item Value Reference Range Interpretation Comments Glucose Lvl (test code = Glucose Lvl) 128 70-99 [facility]2017-02-20 18:33:00 Test Item Value Reference Range Interpretation Comments Creatinine Lvl (test code = Creatinine 0.74 0.50-1.40 Lvl) [facility]2017-02-20 18:33:00 Test Item Value Reference Range Interpretation Comments Potassium Lvl (test code = Potassium 5.0 3.5-5.1 Lvl) [facility]2017-02-20 18:33:00 Test Item Value Reference Range Interpretation Comments Sodium Lvl (test code = Sodium Lvl) 136 135-145 [facility]2017-02-20 18:33:00 Test Item Value Reference Range Interpretation Comments Total Protein (test code = Total 7.7 6.4-8.4 Protein) [facility]2017-02-20 18:33:00 Test Item Value Reference Range Interpretation Comments Calcium Lvl (test code = Calcium Lvl) 8.7 8.5-10.5 [facility]2017-02-20 18:33:00 Test Item Value Reference Range Interpretation Comments ALT (test code = ALT) 21 See_Comment [Auto mated message] The system which ge nerated this result transmit neli reference range : <=65. The reference range was not used to interpr et this result as felipe l/abnormal. [facility]2017-02-20 18:33:00 Test Item Value Reference Range Interpretation Comments Albumin Lvl (test code = Albumin Lvl) 3.0 3.5-5.0 [facility]2017-02-20 18:33:00 Test Item Value Reference Range Interpretation Comments AST (test code = AST) 27 See_Comment [Auto mated message] The system which ge nerated this result transmit neli reference range : <=37. The reference range was not used to interpr et this result as felipe l/abnormal. [facility]suyremEZCOVLUZOT8083[facility] 18:33:00 Test Item Value Reference Range Interpretation Comments C-REACTIVE PROTEIN (test code = 44.4 C-REACTIVE PROTEIN) [facility]2017-02-20 18:33:00 Test Item Value Reference Range Interpretation Comments Lactic Acid Lvl (test code = Lactic 1.3 0.5-2.2 Acid Lvl) [facility]2017-02-20 18:33:00 Test Item Value Reference Range Interpretation Comments eGFR (test code = eGFR) 91 [facility]2017-02-20 18:33:00 Test Item Value Reference Range Interpretation Comments B/C Ratio (test code = B/C Ratio) 19 6-25 [facility]2017-02-20 18:33:00 Test Item Value Reference Range Interpretation Comments A/G Ratio (test code = A/G Ratio) 0.6 0.7-1.6 [facility]2017-02-20 18:33:00 Test Item Value Reference Range Interpretation Comments Globulin (test code = Globulin) 4.7 2.7-4.2 [facility]2017-02-20 18:33:00 Test Item Value Reference Range Interpretation Comments AGAP (test code = AGAP) 12.0 10.0-20.0 [facility]2017-02-20 18:33:00 Test Item Value Reference Range Interpretation Comments Bili Total (test code = Bili Total) 0.2 0.2-1.3 [facility]2017-02-20 18:33:00 Test Item Value Reference Range Interpretation Comments Alk Phos (test code = Alk Phos) 116 39-136 [facility]2017-02-20 18:33:00 Test Item Value Reference Range Interpretation Comments CO2 (test code = CO2) 30 24-32 [facility]2017-02-20 18:33:00 Test Item Value Reference Range Interpretation Comments Chloride Lvl (test code = Chloride Lvl) 99 95-109 [facility]2017-02-20 18:33:00 Test Item Value Reference Range Interpretation Comments BUN (test code = BUN) 14 7-22 [facility]2017-02-20 18:33:00 Test Item Value Reference Range Interpretation Comments Glucose Lvl (test code = Glucose Lvl) 128 70-99 [facility]2017-02-20 18:33:00 Test Item Value Reference Range Interpretation Comments Creatinine Lvl (test code = Creatinine 0.74 0.50-1.40 Lvl) [facility]2017-02-20 18:33:00 Test Item Value Reference Range Interpretation Comments Potassium Lvl (test code = Potassium 5.0 3.5-5.1 Lvl) [facility]2017-02-20 18:33:00 Test Item Value Reference Range Interpretation Comments Sodium Lvl (test code = Sodium Lvl) 136 135-145 [facility]2017-02-20 18:33:00 Test Item Value Reference Range Interpretation Comments Total Protein (test code = Total 7.7 6.4-8.4 Protein) [facility]2017-02-20 18:33:00 Test Item Value Reference Range Interpretation Comments Calcium Lvl (test code = Calcium Lvl) 8.7 8.5-10.5 [facility]2017-02-20 18:33:00 Test Item Value Reference Range Interpretation Comments ALT (test code = ALT) 21 See_Comment [Auto mated message] The system which ge nerated this result transmit neli reference range : <=65. The reference range was not used to interpr et this result as felipe l/abnormal. [facility]2017-02-20 18:33:00 Test Item Value Reference Range Interpretation Comments Albumin Lvl (test code = Albumin Lvl) 3.0 3.5-5.0 [facility]BetUknowCEN[facility] HOSPITALGCHOC5808-98-87 18:33:00 Test Item Value Reference Range Interpretation Comments AST (test code = AST) 27 See_Comment [Auto mated message] The system which ge nerated this result transmit neli reference range : <=37. The reference range was not used to interpr et this result as felipe l/abnormal. [facility]EifxpsySHMHFSJYUU7124-32-39 18:33:00 Test Item Value Reference Range Interpretation Comments C-REACTIVE PROTEIN (test code = 44.4 C-REACTIVE PROTEIN) [facility] HospitalThetis Pharmaceuticals JBJJB8260-26-20 18:33:00 Test Item Value Reference Range Interpretation Comments Lactic Acid Lvl (test code = Lactic 1.3 0.5-2.2 Acid Lvl) [facility]The[facility] [id number] 18:33:00 Test Item Value Reference Range Interpretation Comments eGFR (test code = eGFR) 91 [facility]2017-02-20 18:33:00 Test Item Value Reference Range Interpretation Comments B/C Ratio (test code = B/C Ratio) 19 6-25 [facility]2017-02-20 18:33:00 Test Item Value Reference Range Interpretation Comments A/G Ratio (test code = A/G Ratio) 0.6 0.7-1.6 [facility]2017-02-20 18:33:00 Test Item Value Reference Range Interpretation Comments Globulin (test code = Globulin) 4.7 2.7-4.2 [id number] 18:33:00 Test Item Value Reference Range Interpretation Comments AGAP (test code = AGAP) 12.0 10.0-20.0 [facility]knowC[facility] [id number] 18:33:00 Test Item Value Reference Range Interpretation Comments Bili Total (test code = Bili Total) 0.2 0.2-1.3 [facility]2017-02-20 18:33:00 Test Item Value Reference Range Interpretation Comments Alk Phos (test code = Alk Phos) 116 39-136 [facility]2017-02-20 18:33:00 Test Item Value Reference Range Interpretation Comments CO2 (test code = CO2) 30 24-32 [facility]2017-02-20 18:33:00 Test Item Value Reference Range Interpretation Comments Chloride Lvl (test code = Chloride Lvl) 99 95-109 [facility]2017-02-20 18:33:00 Test Item Value Reference Range Interpretation Comments BUN (test code = BUN) 14 7-22 [facility]2017-02-20 18:33:00 Test Item Value Reference Range Interpretation Comments Glucose Lvl (test code = Glucose Lvl) 128 70-99 [facility]2017-02-20 18:33:00 Test Item Value Reference Range Interpretation Comments Creatinine Lvl (test code = Creatinine 0.74 0.50-1.40 Lvl) [facility]2017-02-20 18:33:00 Test Item Value Reference Range Interpretation Comments Potassium Lvl (test code = Potassium 5.0 3.5-5.1 Lvl) [facility]2017-02-20 18:33:00 Test Item Value Reference Range Interpretation Comments Sodium Lvl (test code = Sodium Lvl) 136 135-145 [facility]2017-02-20 18:33:00 Test Item Value Reference Range Interpretation Comments Total Protein (test code = Total 7.7 6.4-8.4 Protein) [facility]2017-02-20 18:33:00 Test Item Value Reference Range Interpretation Comments Calcium Lvl (test code = Calcium Lvl) 8.7 8.5-10.5 [facility]2017-02-20 18:33:00 Test Item Value Reference Range Interpretation Comments ALT (test code = ALT) 21 See_Comment [Auto mated message] The system which ge nerated this result transmit neli reference range : <=65. The reference range was not used to interpr et this result as felipe l/abnormal. [facility]2017-02-20 18:33:00 Test Item Value Reference Range Interpretation Comments Albumin Lvl (test code = Albumin Lvl) 3.0 3.5-5.0 [facility]2017-02-20 18:33:00 Test Item Value Reference Range Interpretation Comments AST (test code = AST) 27 See_Comment [Auto mated message] The system which ge nerated this result transmit neli reference range : <=37. The reference range was not used to interpr et this result as felipe l/abnormal. [id number] 18:33:00 Test Item Value Reference Range Interpretation Comments C-REACTIVE PROTEIN (test code = 44.4 C-REACTIVE PROTEIN) [facility] [id number] 18:33:00 Test Item Value Reference Range Interpretation Comments Lactic Acid Lvl (test code = Lactic 1.3 0.5-2.2 Acid Lvl) [facility]2017-02-20 18:33:00 Test Item Value Reference Range Interpretation Comments eGFR (test code = eGFR) 91 [facility]2017-02-20 18:33:00 Test Item Value Reference Range Interpretation Comments B/C Ratio (test code = B/C Ratio) 19 6-25 [facility]2017-02-20 18:33:00 Test Item Value Reference Range Interpretation Comments A/G Ratio (test code = A/G Ratio) 0.6 0.7-1.6 [facility]2017-02-20 18:33:00 Test Item Value Reference Range Interpretation Comments Globulin (test code = Globulin) 4.7 2.7-4.2 [facility]2017-02-20 18:33:00 Test Item Value Reference Range Interpretation Comments AGAP (test code = AGAP) 12.0 10.0-20.0 [facility]2017-02-20 18:33:00 Test Item Value Reference Range Interpretation Comments Bili Total (test code = Bili Total) 0.2 0.2-1.3 [facility]2017-02-20 18:33:00 Test Item Value Reference Range Interpretation Comments Alk Phos (test code = Alk Phos) 116 39-136 [facility]2017-02-20 18:33:00 Test Item Value Reference Range Interpretation Comments CO2 (test code = CO2) 30 24-32 [facility]2017-02-20 18:33:00 Test Item Value Reference Range Interpretation Comments Chloride Lvl (test code = Chloride Lvl) 99 95-109 [facility]2017-02-20 18:33:00 Test Item Value Reference Range Interpretation Comments BUN (test code = BUN) 14 7-22 [facility]2017-02-20 18:33:00 Test Item Value Reference Range Interpretation Comments Glucose Lvl (test code = Glucose Lvl) 128 70-99 [facility]2017-02-20 18:33:00 Test Item Value Reference Range Interpretation Comments Creatinine Lvl (test code = Creatinine 0.74 0.50-1.40 Lvl) [facility]2017-02-20 18:33:00 Test Item Value Reference Range Interpretation Comments Potassium Lvl (test code = Potassium 5.0 3.5-5.1 Lvl) [facility]2017-02-20 18:33:00 Test Item Value Reference Range Interpretation Comments Sodium Lvl (test code = Sodium Lvl) 136 135-145 [facility]2017-02-20 18:33:00 Test Item Value Reference Range Interpretation Comments Total Protein (test code = Total 7.7 6.4-8.4 Protein) [facility]2017-02-20 18:33:00 Test Item Value Reference Range Interpretation Comments Calcium Lvl (test code = Calcium Lvl) 8.7 8.5-10.5 [facility]2017-02-20 18:33:00 Test Item Value Reference Range Interpretation Comments ALT (test code = ALT) 21 See_Comment [Auto mated message] The system which ge nerated this result transmit neli reference range : <=65. The reference range was not used to interpr et this result as felipe l/abnormal. [facility]2017-02-20 18:33:00 Test Item Value Reference Range Interpretation Comments Albumin Lvl (test code = Albumin Lvl) 3.0 3.5-5.0 [facility]2017-02-20 18:33:00 Test Item Value Reference Range Interpretation Comments AST (test code = AST) 27 See_Comment [Auto mated message] The system which ge nerated this result transmit neli reference range : <=37. The reference range was not used to interpr et this result as felipe l/abnormal. [facility] [id number] 18:33:00 Test Item Value Reference Range Interpretation Comments C-REACTIVE PROTEIN (test code = 44.4 C-REACTIVE PROTEIN) [facility]2017-02-20 18:33:00 Test Item Value Reference Range Interpretation Comments Lactic Acid Lvl (test code = Lactic 1.3 0.5-2.2 Acid Lvl) [facility]2017-02-20 18:33:00 Test Item Value Reference Range Interpretation Comments eGFR (test code = eGFR) 91 [facility]2017-02-20 18:33:00 Test Item Value Reference Range Interpretation Comments B/C Ratio (test code = B/C Ratio) 19 6-25 [facility]2017-02-20 18:33:00 Test Item Value Reference Range Interpretation Comments A/G Ratio (test code = A/G Ratio) 0.6 0.7-1.6 [facility]2017-02-20 18:33:00 Test Item Value Reference Range Interpretation Comments Globulin (test code = Globulin) 4.7 2.7-4.2 [facility]2017-02-20 18:33:00 Test Item Value Reference Range Interpretation Comments AGAP (test code = AGAP) 12.0 10.0-20.0 [facility]2017-02-20 18:33:00 Test Item Value Reference Range Interpretation Comments Bili Total (test code = Bili Total) 0.2 0.2-1.3 [facility]2017-02-20 18:33:00 Test Item Value Reference Range Interpretation Comments Alk Phos (test code = Alk Phos) 116 39-136 [facility]2017-02-20 18:33:00 Test Item Value Reference Range Interpretation Comments CO2 (test code = CO2) 30 24-32 [facility]2017-02-20 18:33:00 Test Item Value Reference Range Interpretation Comments Chloride Lvl (test code = Chloride Lvl) 99 95-109 [facility]2017-02-20 18:33:00 Test Item Value Reference Range Interpretation Comments BUN (test code = BUN) 14 7-22 [facility]2017-02-20 18:33:00 Test Item Value Reference Range Interpretation Comments Glucose Lvl (test code = Glucose Lvl) 128 70-99 [facility]2017-02-20 18:33:00 Test Item Value Reference Range Interpretation Comments Creatinine Lvl (test code = Creatinine 0.74 0.50-1.40 Lvl) [facility]2017-02-20 18:33:00 Test Item Value Reference Range Interpretation Comments Potassium Lvl (test code = Potassium 5.0 3.5-5.1 Lvl) [facility]2017-02-20 18:33:00 Test Item Value Reference Range Interpretation Comments Sodium Lvl (test code = Sodium Lvl) 136 135-145 [facility]2017-02-20 18:33:00 Test Item Value Reference Range Interpretation Comments Total Protein (test code = Total 7.7 6.4-8.4 Protein) [facility]2017-02-20 18:33:00 Test Item Value Reference Range Interpretation Comments Calcium Lvl (test code = Calcium Lvl) 8.7 8.5-10.5 [facility]2017-02-20 18:33:00 Test Item Value Reference Range Interpretation Comments ALT (test code = ALT) 21 See_Comment [Auto mated message] The system which ge nerated this result transmit neli reference range : <=65. The reference range was not used to interpr et this result as felipe l/abnormal. [facility]2017-02-20 18:33:00 Test Item Value Reference Range Interpretation Comments Albumin Lvl (test code = Albumin Lvl) 3.0 3.5-5.0 [facility]2017-02-20 18:33:00 Test Item Value Reference Range Interpretation Comments AST (test code = AST) 27 See_Comment [Auto mated message] The system which ge nerated this result transmit neli reference range : <=37. The reference range was not used to interpr et this result as felipe l/abnormal. [facility] [id number] 18:33:00 Test Item Value Reference Range Interpretation Comments C-REACTIVE PROTEIN (test code = 44.4 C-REACTIVE PROTEIN) [facility]2017-02-20 18:33:00 Test Item Value Reference Range Interpretation Comments Lactic Acid Lvl (test code = Lactic 1.3 0.5-2.2 Acid Lvl) [facility]2017-02-20 18:33:00 Test Item Value Reference Range Interpretation Comments eGFR (test code = eGFR) 91 [facility]2017-02-20 18:33:00 Test Item Value Reference Range Interpretation Comments B/C Ratio (test code = B/C Ratio) 19 6-25 [facility]2017-02-20 18:33:00 Test Item Value Reference Range Interpretation Comments A/G Ratio (test code = A/G Ratio) 0.6 0.7-1.6 [facility]2017-02-20 18:33:00 Test Item Value Reference Range Interpretation Comments Globulin (test code = Globulin) 4.7 2.7-4.2 [facility]2017-02-20 18:33:00 Test Item Value Reference Range Interpretation Comments AGAP (test code = AGAP) 12.0 10.0-20.0 [facility]2017-02-20 18:33:00 Test Item Value Reference Range Interpretation Comments Bili Total (test code = Bili Total) 0.2 0.2-1.3 [facility]2017-02-20 18:33:00 Test Item Value Reference Range Interpretation Comments Alk Phos (test code = Alk Phos) 116 39-136 [facility]2017-02-20 18:33:00 Test Item Value Reference Range Interpretation Comments CO2 (test code = CO2) 30 24-32 [facility]2017-02-20 18:33:00 Test Item Value Reference Range Interpretation Comments Chloride Lvl (test code = Chloride Lvl) 99 95-109 [facility]2017-02-20 18:33:00 Test Item Value Reference Range Interpretation Comments BUN (test code = BUN) 14 7-22 [facility]2017-02-20 18:33:00 Test Item Value Reference Range Interpretation Comments Glucose Lvl (test code = Glucose Lvl) 128 70-99 [facility]2017-02-20 18:33:00 Test Item Value Reference Range Interpretation Comments Creatinine Lvl (test code = Creatinine 0.74 0.50-1.40 Lvl) [facility]2017-02-20 18:33:00 Test Item Value Reference Range Interpretation Comments Potassium Lvl (test code = Potassium 5.0 3.5-5.1 Lvl) [facility]2017-02-20 18:33:00 Test Item Value Reference Range Interpretation Comments Sodium Lvl (test code = Sodium Lvl) 136 135-145 [facility]2017-02-20 18:33:00 Test Item Value Reference Range Interpretation Comments Total Protein (test code = Total 7.7 6.4-8.4 Protein) [facility]2017-02-20 18:33:00 Test Item Value Reference Range Interpretation Comments Calcium Lvl (test code = Calcium Lvl) 8.7 8.5-10.5 [facility]2017-02-20 18:33:00 Test Item Value Reference Range Interpretation Comments ALT (test code = ALT) 21 See_Comment [Auto mated message] The system which ge nerated this result transmit neli reference range : <=65. The reference range was not used to interpr et this result as felipe l/abnormal. [facility]2017-02-20 18:33:00 Test Item Value Reference Range Interpretation Comments Albumin Lvl (test code = Albumin Lvl) 3.0 3.5-5.0 [facility]2017-02-20 18:33:00 Test Item Value Reference Range Interpretation Comments AST (test code = AST) 27 See_Comment [Auto mated message] The system which ge nerated this result transmit neli reference range : <=37. The reference range was not used to interpr et this result as felipe l/abnormal. [facility] [id number] 18:33:00 Test Item Value Reference Range Interpretation Comments C-REACTIVE PROTEIN (test code = 44.4 C-REACTIVE PROTEIN) [facility]2017-02-20 18:33:00 Test Item Value Reference Range Interpretation Comments Lactic Acid Lvl (test code = Lactic 1.3 0.5-2.2 Acid Lvl) [facility]2017-02-20 18:33:00 Test Item Value Reference Range Interpretation Comments eGFR (test code = eGFR) 91 [facility]2017-02-20 18:33:00 Test Item Value Reference Range Interpretation Comments B/C Ratio (test code = B/C Ratio) 19 6-25 [facility]2017-02-20 18:33:00 Test Item Value Reference Range Interpretation Comments A/G Ratio (test code = A/G Ratio) 0.6 0.7-1.6 [facility]2017-02-20 18:33:00 Test Item Value Reference Range Interpretation Comments Globulin (test code = Globulin) 4.7 2.7-4.2 [facility]2017-02-20 18:33:00 Test Item Value Reference Range Interpretation Comments AGAP (test code = AGAP) 12.0 10.0-20.0 [facility]2017-02-20 18:33:00 Test Item Value Reference Range Interpretation Comments Bili Total (test code = Bili Total) 0.2 0.2-1.3 [facility]2017-02-20 18:33:00 Test Item Value Reference Range Interpretation Comments Alk Phos (test code = Alk Phos) 116 39-136 [facility]2017-02-20 18:33:00 Test Item Value Reference Range Interpretation Comments CO2 (test code = CO2) 30 24-32 [facility]2017-02-20 18:33:00 Test Item Value Reference Range Interpretation Comments Chloride Lvl (test code = Chloride Lvl) 99 95-109 [facility]2017-02-20 18:33:00 Test Item Value Reference Range Interpretation Comments BUN (test code = BUN) 14 7-22 [facility]2017-02-20 18:33:00 Test Item Value Reference Range Interpretation Comments Glucose Lvl (test code = Glucose Lvl) 128 70-99 [facility]2017-02-20 18:33:00 Test Item Value Reference Range Interpretation Comments Creatinine Lvl (test code = Creatinine 0.74 0.50-1.40 Lvl) [facility]2017-02-20 18:33:00 Test Item Value Reference Range Interpretation Comments Potassium Lvl (test code = Potassium 5.0 3.5-5.1 Lvl) [facility]2017-02-20 18:33:00 Test Item Value Reference Range Interpretation Comments Sodium Lvl (test code = Sodium Lvl) 136 135-145 [facility]2017-02-20 18:33:00 Test Item Value Reference Range Interpretation Comments Total Protein (test code = Total 7.7 6.4-8.4 Protein) [facility]2017-02-20 18:33:00 Test Item Value Reference Range Interpretation Comments Calcium Lvl (test code = Calcium Lvl) 8.7 8.5-10.5 [facility]2017-02-20 18:33:00 Test Item Value Reference Range Interpretation Comments ALT (test code = ALT) 21 See_Comment [Auto mated message] The system which ge nerated this result transmit neli reference range : <=65. The reference range was not used to interpr et this result as felipe l/abnormal. [facility]2017-02-20 18:33:00 Test Item Value Reference Range Interpretation Comments Albumin Lvl (test code = Albumin Lvl) 3.0 3.5-5.0 [facility]2017-02-20 18:33:00 Test Item Value Reference Range Interpretation Comments AST (test code = AST) 27 See_Comment [Auto mated message] The system which ge nerated this result transmit neli reference range : <=37. The reference range was not used to interpr et this result as felipe l/abnormal. [id number] 18:33:00 Test Item Value Reference Range Interpretation Comments C-REACTIVE PROTEIN (test code = 44.4 C-REACTIVE PROTEIN) [facility]2017-02-20 18:33:00 Test Item Value Reference Range Interpretation Comments Lactic Acid Lvl (test code = Lactic 1.3 0.5-2.2 Acid Lvl) [facility]2017-02-20 18:33:00 Test Item Value Reference Range Interpretation Comments eGFR (test code = eGFR) 91 [facility]2017-02-20 18:33:00 Test Item Value Reference Range Interpretation Comments B/C Ratio (test code = B/C Ratio) 19 6-25 [facility]2017-02-20 18:33:00 Test Item Value Reference Range Interpretation Comments A/G Ratio (test code = A/G Ratio) 0.6 0.7-1.6 [facility]2017-02-20 18:33:00 Test Item Value Reference Range Interpretation Comments Globulin (test code = Globulin) 4.7 2.7-4.2 [facility]2017-02-20 18:33:00 Test Item Value Reference Range Interpretation Comments AGAP (test code = AGAP) 12.0 10.0-20.0 [facility]2017-02-20 18:33:00 Test Item Value Reference Range Interpretation Comments Bili Total (test code = Bili Total) 0.2 0.2-1.3 [facility]2017-02-20 18:33:00 Test Item Value Reference Range Interpretation Comments Alk Phos (test code = Alk Phos) 116 39-136 [facility]2017-02-20 18:33:00 Test Item Value Reference Range Interpretation Comments CO2 (test code = CO2) 30 24-32 [facility]2017-02-20 18:33:00 Test Item Value Reference Range Interpretation Comments Chloride Lvl (test code = Chloride Lvl) 99 95-109 [facility]2017-02-20 18:33:00 Test Item Value Reference Range Interpretation Comments BUN (test code = BUN) 14 7-22 [facility]2017-02-20 18:33:00 Test Item Value Reference Range Interpretation Comments Glucose Lvl (test code = Glucose Lvl) 128 70-99 [facility]2017-02-20 18:33:00 Test Item Value Reference Range Interpretation Comments Creatinine Lvl (test code = Creatinine 0.74 0.50-1.40 Lvl) [facility]2017-02-20 18:33:00 Test Item Value Reference Range Interpretation Comments Potassium Lvl (test code = Potassium 5.0 3.5-5.1 Lvl) [facility]2017-02-20 18:33:00 Test Item Value Reference Range Interpretation Comments Sodium Lvl (test code = Sodium Lvl) 136 135-145 [facility]2017-02-20 18:33:00 Test Item Value Reference Range Interpretation Comments Total Protein (test code = Total 7.7 6.4-8.4 Protein) [facility]2017-02-20 18:33:00 Test Item Value Reference Range Interpretation Comments Calcium Lvl (test code = Calcium Lvl) 8.7 8.5-10.5 [facility]2017-02-20 18:33:00 Test Item Value Reference Range Interpretation Comments ALT (test code = ALT) 21 See_Comment [Auto mated message] The system which ge nerated this result transmit neli reference range : <=65. The reference range was not used to interpr et this result as felipe l/abnormal. [facility] [id number] 18:33:00 Test Item Value Reference Range Interpretation Comments Albumin Lvl (test code = Albumin Lvl) 3.0 3.5-5.0 [facility] [id number] 18:33:00 Test Item Value Reference Range Interpretation Comments AST (test code = AST) 27 See_Comment [Auto mated message] The system which ge nerated this result transmit neli reference range : <=37. The reference range was not used to interpr et this result as felipe l/abnormal. [facility] [id number] 18:33:00 Test Item Value Reference Range Interpretation Comments C-REACTIVE PROTEIN (test code = 44.4 C-REACTIVE PROTEIN) [facility] [id number] 18:33:00 Test Item Value Reference Range Interpretation Comments Lactic Acid Lvl (test code = Lactic 1.3 0.5-2.2 Acid Lvl) [facility] [id number] 18:33:00 Test Item Value Reference Range Interpretation Comments eGFR (test code = eGFR) 91 [facility] [id number] 18:33:00 Test Item Value Reference Range Interpretation Comments B/C Ratio (test code = B/C Ratio) 19 6-25 [facility]BetUknowCEN[facility] [id number] 18:33:00 Test Item Value Reference Range Interpretation Comments A/G Ratio (test code = A/G Ratio) 0.6 0.7-1.6 [facility] [id number] 18:33:00 Test Item Value Reference Range Interpretation Comments Globulin (test code = Globulin) 4.7 2.7-4.2 [facility] [id number] 18:33:00 Test Item Value Reference Range Interpretation Comments AGAP (test code = AGAP) 12.0 10.0-20.0 [facility]Bet[facility]knowCEN[facility] HAR[facility]T [id number] 18:33:00 Test Item Value Reference Range Interpretation Comments Bili Total (test code = Bili Total) 0.2 0.2-1.3 [facility]2017-02-20 18:33:00 Test Item Value Reference Range Interpretation Comments Alk Phos (test code = Alk Phos) 116 39-136 [facility]2017-02-20 18:33:00 Test Item Value Reference Range Interpretation Comments CO2 (test code = CO2) 30 24-32 [facility]2017-02-20 18:33:00 Test Item Value Reference Range Interpretation Comments Chloride Lvl (test code = Chloride Lvl) 99 95-109 [facility]2017-02-20 18:33:00 Test Item Value Reference Range Interpretation Comments BUN (test code = BUN) 14 7-22 [facility]2017-02-20 18:33:00 Test Item Value Reference Range Interpretation Comments Glucose Lvl (test code = Glucose Lvl) 128 70-99 [facility]2017-02-20 18:33:00 Test Item Value Reference Range Interpretation Comments Creatinine Lvl (test code = Creatinine 0.74 0.50-1.40 Lvl) [facility]2017-02-20 18:33:00 Test Item Value Reference Range Interpretation Comments Potassium Lvl (test code = Potassium 5.0 3.5-5.1 Lvl) [facility]2017-02-20 18:33:00 Test Item Value Reference Range Interpretation Comments Sodium Lvl (test code = Sodium Lvl) 136 135-145 [facility]2017-02-20 18:33:00 Test Item Value Reference Range Interpretation Comments Total Protein (test code = Total 7.7 6.4-8.4 Protein) [facility]2017-02-20 18:33:00 Test Item Value Reference Range Interpretation Comments Calcium Lvl (test code = Calcium Lvl) 8.7 8.5-10.5 [facility]2017-02-20 18:33:00 Test Item Value Reference Range Interpretation Comments ALT (test code = ALT) 21 See_Comment [Auto mated message] The system which ge nerated this result transmit neli reference range : <=65. The reference range was not used to interpr et this result as felipe l/abnormal. [facility]2017-02-20 18:33:00 Test Item Value Reference Range Interpretation Comments Albumin Lvl (test code = Albumin Lvl) 3.0 3.5-5.0 [facility]2017-02-20 18:33:00 Test Item Value Reference Range Interpretation Comments AST (test code = AST) 27 See_Comment [Auto mated message] The system which ge nerated this result transmit neli reference range : <=37. The reference range was not used to interpr et this result as felipe l/abnormal. [id number] 18:33:00 Test Item Value Reference Range Interpretation Comments C-REACTIVE PROTEIN (test code = 44.4 C-REACTIVE PROTEIN) [facility]2017-02-20 18:33:00 Test Item Value Reference Range Interpretation Comments Lactic Acid Lvl (test code = Lactic 1.3 0.5-2.2 Acid Lvl) [facility]2017-02-20 18:33:00 Test Item Value Reference Range Interpretation Comments eGFR (test code = eGFR) 91 [facility]2017-02-20 18:33:00 Test Item Value Reference Range Interpretation Comments B/C Ratio (test code = B/C Ratio) 19 6-25 [facility]2017-02-20 18:33:00 Test Item Value Reference Range Interpretation Comments A/G Ratio (test code = A/G Ratio) 0.6 0.7-1.6 [facility]2017-02-20 18:33:00 Test Item Value Reference Range Interpretation Comments Globulin (test code = Globulin) 4.7 2.7-4.2 [facility]2017-02-20 18:33:00 Test Item Value Reference Range Interpretation Comments AGAP (test code = AGAP) 12.0 10.0-20.0 [facility]2017-02-20 18:33:00 Test Item Value Reference Range Interpretation Comments Bili Total (test code = Bili Total) 0.2 0.2-1.3 [facility]2017-02-20 18:33:00 Test Item Value Reference Range Interpretation Comments Alk Phos (test code = Alk Phos) 116 39-136 [facility]2017-02-20 18:33:00 Test Item Value Reference Range Interpretation Comments CO2 (test code = CO2) 30 24-32 [facility]2017-02-20 18:33:00 Test Item Value Reference Range Interpretation Comments Chloride Lvl (test code = Chloride Lvl) 99 95-109 [facility]2017-02-20 18:33:00 Test Item Value Reference Range Interpretation Comments BUN (test code = BUN) 14 7-22 [facility]2017-02-20 18:33:00 Test Item Value Reference Range Interpretation Comments Glucose Lvl (test code = Glucose Lvl) 128 70-99 [facility]2017-02-20 18:33:00 Test Item Value Reference Range Interpretation Comments Creatinine Lvl (test code = Creatinine 0.74 0.50-1.40 Lvl) [facility]2017-02-20 18:33:00 Test Item Value Reference Range Interpretation Comments Potassium Lvl (test code = Potassium 5.0 3.5-5.1 Lvl) [facility]2017-02-20 18:33:00 Test Item Value Reference Range Interpretation Comments Sodium Lvl (test code = Sodium Lvl) 136 135-145 [facility]2017-02-20 18:33:00 Test Item Value Reference Range Interpretation Comments Total Protein (test code = Total 7.7 6.4-8.4 Protein) [facility]2017-02-20 18:33:00 Test Item Value Reference Range Interpretation Comments Calcium Lvl (test code = Calcium Lvl) 8.7 8.5-10.5 [facility]2017-02-20 18:33:00 Test Item Value Reference Range Interpretation Comments ALT (test code = ALT) 21 See_Comment [Auto mated message] The system which ge nerated this result transmit neli reference range : <=65. The reference range was not used to interpr et this result as felipe l/abnormal. [facility]2017-02-20 18:33:00 Test Item Value Reference Range Interpretation Comments Albumin Lvl (test code = Albumin Lvl) 3.0 3.5-5.0 [facility]2017-02-20 18:33:00 Test Item Value Reference Range Interpretation Comments AST (test code = AST) 27 See_Comment [Auto mated message] The system which ge nerated this result transmit neli reference range : <=37. The reference range was not used to interpr et this result as felipe l/abnormal. [id number] 18:33:00 Test Item Value Reference Range Interpretation Comments C-REACTIVE PROTEIN (test code = 44.4 C-REACTIVE PROTEIN) [facility]2017-02-20 18:33:00 Test Item Value Reference Range Interpretation Comments Lactic Acid Lvl (test code = Lactic 1.3 0.5-2.2 Acid Lvl) [facility]2017-02-20 18:33:00 Test Item Value Reference Range Interpretation Comments eGFR (test code = eGFR) 91 [facility]2017-02-20 18:33:00 Test Item Value Reference Range Interpretation Comments B/C Ratio (test code = B/C Ratio) 19 6-25 [facility]2017-02-20 18:33:00 Test Item Value Reference Range Interpretation Comments A/G Ratio (test code = A/G Ratio) 0.6 0.7-1.6 [facility]2017-02-20 18:33:00 Test Item Value Reference Range Interpretation Comments Globulin (test code = Globulin) 4.7 2.7-4.2 [facility]2017-02-20 18:33:00 Test Item Value Reference Range Interpretation Comments AGAP (test code = AGAP) 12.0 10.0-20.0 [facility]2017-02-20 18:33:00 Test Item Value Reference Range Interpretation Comments Bili Total (test code = Bili Total) 0.2 0.2-1.3 [facility]2017-02-20 18:33:00 Test Item Value Reference Range Interpretation Comments Alk Phos (test code = Alk Phos) 116 39-136 [facility]2017-02-20 18:33:00 Test Item Value Reference Range Interpretation Comments CO2 (test code = CO2) 30 24-32 [facility]2017-02-20 18:33:00 Test Item Value Reference Range Interpretation Comments Chloride Lvl (test code = Chloride Lvl) 99 95-109 [facility]2017-02-20 18:33:00 Test Item Value Reference Range Interpretation Comments BUN (test code = BUN) 14 7-22 [facility]2017-02-20 18:33:00 Test Item Value Reference Range Interpretation Comments Glucose Lvl (test code = Glucose Lvl) 128 70-99 [facility]2017-02-20 18:33:00 Test Item Value Reference Range Interpretation Comments Creatinine Lvl (test code = Creatinine 0.74 0.50-1.40 Lvl) [facility]2017-02-20 18:33:00 Test Item Value Reference Range Interpretation Comments Potassium Lvl (test code = Potassium 5.0 3.5-5.1 Lvl) [facility]2017-02-20 18:33:00 Test Item Value Reference Range Interpretation Comments Sodium Lvl (test code = Sodium Lvl) 136 135-145 [facility]2017-02-20 18:33:00 Test Item Value Reference Range Interpretation Comments Total Protein (test code = Total 7.7 6.4-8.4 Protein) [facility]2017-02-20 18:33:00 Test Item Value Reference Range Interpretation Comments Calcium Lvl (test code = Calcium Lvl) 8.7 8.5-10.5 [facility]2017-02-20 18:33:00 Test Item Value Reference Range Interpretation Comments ALT (test code = ALT) 21 See_Comment [Auto mated message] The system which ge nerated this result transmit neli reference range : <=65. The reference range was not used to interpr et this result as felipe l/abnormal. [facility]2017-02-20 18:33:00 Test Item Value Reference Range Interpretation Comments Albumin Lvl (test code = Albumin Lvl) 3.0 3.5-5.0 [facility]2017-02-20 18:33:00 Test Item Value Reference Range Interpretation Comments AST (test code = AST) 27 See_Comment [Auto mated message] The system which ge nerated this result transmit neli reference range : <=37. The reference range was not used to interpr et this result as felipe l/abnormal. [facility]hwdyinUYWQHBIPIE9727[facility] 18:33:00 Test Item Value Reference Range Interpretation Comments C-REACTIVE PROTEIN (test code = 44.4 C-REACTIVE PROTEIN) [id number] 14:38:00 Test Item Value Reference Range Interpretation Comments Segs-Bands # (test code = Segs-Bands #) 4.5 1.5-8.1 [id number] 14:38:00 Test Item Value Reference Range Interpretation Comments Basophils (test code = 0.5 See_Comment [Aut omated message] The Basophils) system which ge nerated this result tra nsmitted reference range : <=1.0. The reference r lv was not used to int erpret this result as normal/abnormal . [facility] CenterRoospgjDCIGAIEFKI0782-22-14 14:38:00 Test Item Value Reference Range Interpretation Comments Monocytes (test code = Monocytes) 5.8 2.0-12.0 [facility] CenterLvaxwtaXDCFMFKJSJ2113-13-94 14:38:00 Test Item Value Reference Range Interpretation Comments Eosinophils (test code = 1.4 See_Comment [A utomated message] The Eosinophils) system which ge nerated this result tra nsmitted reference range : <=4.0. The reference r lv was not used to int erpret this result as normal/abnormal . [facility] CenterKyhwgdnYUAFNYDPRH8041-58-51 14:38:00 Test Item Value Reference Range Interpretation Comments Eosinophils # (test code 0.1 See_Comment [A utomated message] The = Eosinophils #) system whic h generated this result tra nsmitted reference range : <=0.5. The reference r lv was not used to int erpret this result as normal/abnormal . [facility] HospitalFlnysytFRGUDZPMRQ1601-40-67 14:38:00 Test Item Value Reference Range Interpretation Comments HIV 1/2 Ab (test code Negative *NA*(08/03/15 = HIV 1/2 Ab) 9:38 AM) [facility] HospitalAniernqYUASRPERWX0879-41-91 14:38:00 Test Item Value Reference Range Interpretation Comments Hep C Ab (test code = Negative *NA*(08/03/15 Hep C Ab) 9:38 AM) [facility]2016-06-23 14:38:00 Test Item Value Reference Range Interpretation Comments eGFR (test code = eGFR) 79 [facility]2016-06-23 14:38:00 Test Item Value Reference Range Interpretation Comments Sodium Lvl (test code = Sodium Lvl) 144 135-145 [facility]2016-06-23 14:38:00 Test Item Value Reference Range Interpretation Comments Chloride Lvl (test code = Chloride Lvl) 104 95-109 [place] [id number] 14:38:00 Test Item Value Reference Range Interpretation Comments Potassium Lvl (test code = Potassium 4.6 3.5-5.1 Lvl) [facility]2016-06-23 14:38:00 Test Item Value Reference Range Interpretation Comments Calcium Lvl (test code = Calcium Lvl) 9.4 8.5-10.5 [facility]2016-06-23 14:38:00 Test Item Value Reference Range Interpretation Comments CO2 (test code = CO2) 31 24-32 [facility]2016-06-23 14:38:00 Test Item Value Reference Range Interpretation Comments Glucose Lvl (test code = Glucose Lvl) 126 70-99 [facility]2016-06-23 14:38:00 Test Item Value Reference Range Interpretation Comments Creatinine Lvl (test code = Creatinine 0.84 0.50-1.40 Lvl) [facility]2016-06-23 14:38:00 Test Item Value Reference Range Interpretation Comments BUN (test code = BUN) 17 7-22 [facility]2016-06-23 14:38:00 Test Item Value Reference Range Interpretation Comments AGAP (test code = AGAP) 13.6 10.0-20.0 [facility] CenterYcwclaeUJUGAIEGYU9612-73-52 14:38:00 Test Item Value Reference Range Interpretation Comments MCH (test code = MCH) 28.8 pg 27.0-31.0 [facility] CenterWhtctmvMIXAUBYGGK8247-81-22 14:38:00 Test Item Value Reference Range Interpretation Comments Hgb (test code = Hgb) 12.1 12.0-16.0 [facility] CenterPxkgyvpHEOWFGKWWY6994-35-83 14:38:00 Test Item Value Reference Range Interpretation Comments RBC (test code = RBC) 4.20 4.20-5.40 [facility] CenterAottzkfVKEYZKBYNM1505-28-60 14:38:00 Test Item Value Reference Range Interpretation Comments MCV (test code = MCV) 89.2 80.0-98.0 [place] 553406-06-23 14:38:00 Test Item Value Reference Range Interpretation Comments Hct (test code = Hct) 37.5 36.0-48.0 [facility] CenterHmtoftoFWPNEGQPBI0911-49-47 14:38:00 Test Item Value Reference Range Interpretation Comments WBC (test code = WBC) 7.4 3.7-10.4 [facility] CenterWsbmqwvVEHKFXTAGH4927-38-44 14:38:00 Test Item Value Reference Range Interpretation Comments MCHC (test code = MCHC) 32.3 32.0-36.0 [facility] CenterHzwgywlAAUMBHKRQI4793-99-68 14:38:00 Test Item Value Reference Range Interpretation Comments RDW (test code = RDW) 14.3 11.5-14.5 [facility] CenterOhwicxlCODYEXWHXO6118-22-58 14:38:00 Test Item Value Reference Range Interpretation Comments MPV (test code = MPV) 9.3 7.4-10.4 [facility] CenterWswjnptMPNPCWIZRW8141-42-16 14:38:00 Test Item Value Reference Range Interpretation Comments Platelet (test code = Platelet) 193 133-450 [facility] CenterUrtrvxdQKQKDNTBWZ6766-83-18 14:38:00 Test Item Value Reference Range Interpretation Comments Basophils # (test code 0.0 See_Comment [Aut omated message] The = Basophils #) system which generated this result tra nsmitted reference range : <=0.2. The reference r lv was not used to int erpret this result as normal/abnormal . [facility] CenterQlwtvmaCWDGULDBNG1236-14-98 14:38:00 Test Item Value Reference Range Interpretation Comments Segs (test code = Segs) 61.4 45.0-75.0 [facility] CenterAfyxbzbYYSPTNTVJS6652-31-95 14:38:00 Test Item Value Reference Range Interpretation Comments Lymphocytes (test code = Lymphocytes) 30.9 20.0-40.0 [facility] CenterGqkpdojEQIPRRZPOV1783-68-16 14:38:00 Test Item Value Reference Range Interpretation Comments Lymphocytes # (test code = Lymphocytes 2.3 1.0-5.5 #) [facility] CenterKcolcinGLZCUWLTGS6710-11-71 14:38:00 Test Item Value Reference Range Interpretation Comments Monocytes # (test code 0.4 See_Comment [Aut omated message] The = Monocytes #) system which generated this result tra nsmitted reference range : <=0.8. The reference r lv was not used to int erpret this result as normal/abnormal . [place] 553406-06-23 14:38:00 Test Item Value Reference Range Interpretation Comments Segs-Bands # (test code = Segs-Bands #) 4.5 1.5-8.1 [facility] CenterQfrtfxhDFQKPAZYZK1961-07-24 14:38:00 Test Item Value Reference Range Interpretation Comments Basophils (test code = 0.5 See_Comment [Aut omated message] The Basophils) system which ge nerated this result tra nsmitted reference range : <=1.0. The reference r lv was not used to int erpret this result as normal/abnormal . [facility] CenterEluzpzlTVIJYUQUDA0529-04-75 14:38:00 Test Item Value Reference Range Interpretation Comments Monocytes (test code = Monocytes) 5.8 2.0-12.0 [facility] CenterVjpeypgHLUNBXFIWL6035-03-74 14:38:00 Test Item Value Reference Range Interpretation Comments Eosinophils (test code = 1.4 See_Comment [A utomated message] The Eosinophils) system which ge nerated this result tra nsmitted reference range : <=4.0. The reference r lv was not used to int erpret this result as normal/abnormal . [facility] CenterXyhfyciWKPXZHYDSV7959-48-18 14:38:00 Test Item Value Reference Range Interpretation Comments Eosinophils # (test code 0.1 See_Comment [A utomated message] The = Eosinophils #) system whic h generated this result tra nsmitted reference range : <=0.5. The reference r lv was not used to int erpret this result as normal/abnormal . [facility] HospitalCabvupiMKLDRNNZPB3038-88-41 14:38:00 Test Item Value Reference Range Interpretation Comments HIV 1/2 Ab (test code Negative *NA*(08/03/15 = HIV 1/2 Ab) 9:38 AM) [facility] HospitalKxtqepbURMIJVZQCJ2227-74-87 14:38:00 Test Item Value Reference Range Interpretation Comments Hep C Ab (test code = Negative *NA*(08/03/15 Hep C Ab) 9:38 AM) [facility]2016-06-23 14:38:00 Test Item Value Reference Range Interpretation Comments eGFR (test code = eGFR) 79 [facility]2016-06-23 14:38:00 Test Item Value Reference Range Interpretation Comments Sodium Lvl (test code = Sodium Lvl) 144 135-145 [facility]2016-06-23 14:38:00 Test Item Value Reference Range Interpretation Comments Chloride Lvl (test code = Chloride Lvl) 104 95-109 [facility]2016-06-23 14:38:00 Test Item Value Reference Range Interpretation Comments Potassium Lvl (test code = Potassium 4.6 3.5-5.1 Lvl) [facility]2016-06-23 14:38:00 Test Item Value Reference Range Interpretation Comments Calcium Lvl (test code = Calcium Lvl) 9.4 8.5-10.5 [facility]2016-06-23 14:38:00 Test Item Value Reference Range Interpretation Comments CO2 (test code = CO2) 31 24-32 [facility]2016-06-23 14:38:00 Test Item Value Reference Range Interpretation Comments Glucose Lvl (test code = Glucose Lvl) 126 70-99 [facility]2016-06-23 14:38:00 Test Item Value Reference Range Interpretation Comments Creatinine Lvl (test code = Creatinine 0.84 0.50-1.40 Lvl) [facility]2016-06-23 14:38:00 Test Item Value Reference Range Interpretation Comments BUN (test code = BUN) 17 7-22 [facility]2016-06-23 14:38:00 Test Item Value Reference Range Interpretation Comments AGAP (test code = AGAP) 13.6 10.0-20.0 [facility] CenterQutllspGTJNTVTWQF5394-41-55 14:38:00 Test Item Value Reference Range Interpretation Comments MCH (test code = MCH) 28.8 pg 27.0-31.0 [facility] CenterSvaefyjBSXBSKKDQV2816-75-10 14:38:00 Test Item Value Reference Range Interpretation Comments Hgb (test code = Hgb) 12.1 12.0-16.0 [facility] CenterWxtafsxXHHOXKDTVO8363-36-21 14:38:00 Test Item Value Reference Range Interpretation Comments RBC (test code = RBC) 4.20 4.20-5.40 [facility] CenterKoeygniJZXDHZNAST6786-71-55 14:38:00 Test Item Value Reference Range Interpretation Comments MCV (test code = MCV) 89.2 80.0-98.0 [facility] CenterNfpsedpKDZCWCJXOH6053-69-35 14:38:00 Test Item Value Reference Range Interpretation Comments Hct (test code = Hct) 37.5 36.0-48.0 [facility] CenterOdrzewlDDOSEWZWCO2616-30-78 14:38:00 Test Item Value Reference Range Interpretation Comments WBC (test code = WBC) 7.4 3.7-10.4 [facility] CenterQkzfkivFJJZSXQYQH1961-64-72 14:38:00 Test Item Value Reference Range Interpretation Comments MCHC (test code = MCHC) 32.3 32.0-36.0 [facility] CenterPjpzwnsSCSXFRNCZB0897-25-96 14:38:00 Test Item Value Reference Range Interpretation Comments RDW (test code = RDW) 14.3 11.5-14.5 [facility] CenterIjsjcwoOXHTPDOFBX0645-01-92 14:38:00 Test Item Value Reference Range Interpretation Comments MPV (test code = MPV) 9.3 7.4-10.4 [facility] CenterKylseybVPFIBQVOMO0587-14-87 14:38:00 Test Item Value Reference Range Interpretation Comments Platelet (test code = Platelet) 193 133-450 [facility] CenterQqmkaycRRMNPJNQVB8881-68-30 14:38:00 Test Item Value Reference Range Interpretation Comments Basophils # (test code 0.0 See_Comment [Aut omated message] The = Basophils #) system which generated this result tra nsmitted reference range : <=0.2. The reference r lv was not used to int erpret this result as normal/abnormal . [facility] CenterJckfltwRUBZLBRKCW1151-79-16 14:38:00 Test Item Value Reference Range Interpretation Comments Segs (test code = Segs) 61.4 45.0-75.0 [facility] CenterZukgfqePXLVJIOVUN6226-20-71 14:38:00 Test Item Value Reference Range Interpretation Comments Lymphocytes (test code = Lymphocytes) 30.9 20.0-40.0 [facility] CenterIrtnohcHEQBXHCKJF1015-65-16 14:38:00 Test Item Value Reference Range Interpretation Comments Lymphocytes # (test code = Lymphocytes 2.3 1.0-5.5 #) [facility] CenterUrzclopXUDWVAFSUZ5568-17-95 14:38:00 Test Item Value Reference Range Interpretation Comments Monocytes # (test code 0.4 See_Comment [Aut omated message] The = Monocytes #) system which generated this result tra nsmitted reference range : <=0.8. The reference r lv was not used to int erpret this result as normal/abnormal . [facility] CenterFmhdqgzNUDUNSKDAO0492-75-75 14:38:00 Test Item Value Reference Range Interpretation Comments Segs-Bands # (test code = Segs-Bands #) 4.5 1.5-8.1 [facility] CenterFscbgtsCYHUMBEVPO3111-56-18 14:38:00 Test Item Value Reference Range Interpretation Comments Basophils (test code = 0.5 See_Comment [Aut omated message] The Basophils) system which ge nerated this result tra nsmitted reference range : <=1.0. The reference r lv was not used to int erpret this result as normal/abnormal . [facility] CenterTprurcgLFSJEPUAPX1722-50-56 14:38:00 Test Item Value Reference Range Interpretation Comments Monocytes (test code = Monocytes) 5.8 2.0-12.0 [facility] CenterFqpdekkOESLCVMYKT7239-20-35 14:38:00 Test Item Value Reference Range Interpretation Comments Eosinophils (test code = 1.4 See_Comment [A utomated message] The Eosinophils) system which ge nerated this result tra nsmitted reference range : <=4.0. The reference r lv was not used to int erpret this result as normal/abnormal . [facility] CenterZnuidgfVUFYXIIEGH8618-30-16 14:38:00 Test Item Value Reference Range Interpretation Comments Eosinophils # (test code 0.1 See_Comment [A utomated message] The = Eosinophils #) system whic h generated this result tra nsmitted reference range : <=0.5. The reference r lv was not used to int erpret this result as normal/abnormal . [facility]TjwisxrKBDQZKMFRQ0630-49-30 14:38:00 Test Item Value Reference Range Interpretation Comments HIV 1/2 Ab (test code Negative *NA*(08/03/15 = HIV 1/2 Ab) 9:38 AM) [facility]CxtuqcoNNNDJCBVGX5788-76-45 14:38:00 Test Item Value Reference Range Interpretation Comments Hep C Ab (test code = Negative *NA*(08/03/15 Hep C Ab) 9:38 AM) [facility]2016-06-23 14:38:00 Test Item Value Reference Range Interpretation Comments eGFR (test code = eGFR) 79 [facility]2016-06-23 14:38:00 Test Item Value Reference Range Interpretation Comments Sodium Lvl (test code = Sodium Lvl) 144 135-145 [facility]2016-06-23 14:38:00 Test Item Value Reference Range Interpretation Comments Chloride Lvl (test code = Chloride Lvl) 104 95-109 [facility]2016-06-23 14:38:00 Test Item Value Reference Range Interpretation Comments Potassium Lvl (test code = Potassium 4.6 3.5-5.1 Lvl) [facility]2016-06-23 14:38:00 Test Item Value Reference Range Interpretation Comments Calcium Lvl (test code = Calcium Lvl) 9.4 8.5-10.5 [facility]2016-06-23 14:38:00 Test Item Value Reference Range Interpretation Comments CO2 (test code = CO2) 31 24-32 [facility]2016-06-23 14:38:00 Test Item Value Reference Range Interpretation Comments Glucose Lvl (test code = Glucose Lvl) 126 70-99 [facility]2016-06-23 14:38:00 Test Item Value Reference Range Interpretation Comments Creatinine Lvl (test code = Creatinine 0.84 0.50-1.40 Lvl) [facility]2016-06-23 14:38:00 Test Item Value Reference Range Interpretation Comments BUN (test code = BUN) 17 7-22 [facility]2016-06-23 14:38:00 Test Item Value Reference Range Interpretation Comments AGAP (test code = AGAP) 13.6 10.0-20.0 [facility]XqvluatHSKYCWGTGD2289-85-99 14:38:00 Test Item Value Reference Range Interpretation Comments MCH (test code = MCH) 28.8 pg 27.0-31.0 [facility] CenterJbczorxQTHJRSWSAS4714-15-44 14:38:00 Test Item Value Reference Range Interpretation Comments Hgb (test code = Hgb) 12.1 12.0-16.0 [facility] CenterVudfgmaHOIKKZXAWT6371-46-95 14:38:00 Test Item Value Reference Range Interpretation Comments RBC (test code = RBC) 4.20 4.20-5.40 [facility] CenterOziegolAOICPSUBVK3833-24-11 14:38:00 Test Item Value Reference Range Interpretation Comments MCV (test code = MCV) 89.2 80.0-98.0 [facility] CenterMrxzlodDBDXJHUCEJ8377-04-94 14:38:00 Test Item Value Reference Range Interpretation Comments Hct (test code = Hct) 37.5 36.0-48.0 [facility] CenterPtrwtywHNYVCVMSGN6175-50-66 14:38:00 Test Item Value Reference Range Interpretation Comments WBC (test code = WBC) 7.4 3.7-10.4 [facility] CenterFttnokaIECQVEZONT9397-00-40 14:38:00 Test Item Value Reference Range Interpretation Comments MCHC (test code = MCHC) 32.3 32.0-36.0 [facility] CenterLrxhvigKEGVMBVQVJ1852-70-42 14:38:00 Test Item Value Reference Range Interpretation Comments RDW (test code = RDW) 14.3 11.5-14.5 [facility] CenterHpuxwneDVHCGGDQDK9732-32-14 14:38:00 Test Item Value Reference Range Interpretation Comments MPV (test code = MPV) 9.3 7.4-10.4 [facility] CenterStkekygSINDYLFWVU1785-14-07 14:38:00 Test Item Value Reference Range Interpretation Comments Platelet (test code = Platelet) 193 133-450 [facility] CenterEmfqqraREHUIIHERJ1870-40-31 14:38:00 Test Item Value Reference Range Interpretation Comments Basophils # (test code 0.0 See_Comment [Aut omated message] The = Basophils #) system which generated this result tra nsmitted reference range : <=0.2. The reference r lv was not used to int erpret this result as normal/abnormal . [facility] CenterLlewkpyFRYEAMTKTQ1638-87-04 14:38:00 Test Item Value Reference Range Interpretation Comments Segs (test code = Segs) 61.4 45.0-75.0 [facility] CenterKnqcscoIXXCNMCHQZ1441-71-47 14:38:00 Test Item Value Reference Range Interpretation Comments Lymphocytes (test code = Lymphocytes) 30.9 20.0-40.0 [facility] CenterPwhirbvBKSDSXQOYM2180-75-65 14:38:00 Test Item Value Reference Range Interpretation Comments Lymphocytes # (test code = Lymphocytes 2.3 1.0-5.5 #) [facility] CenterRbopqlwUAOXBPKOMU7448-73-08 14:38:00 Test Item Value Reference Range Interpretation Comments Monocytes # (test code 0.4 See_Comment [Aut omated message] The = Monocytes #) system which generated this result tra nsmitted reference range : <=0.8. The reference r lv was not used to int erpret this result as normal/abnormal . [place] 553406-06-23 14:38:00 Test Item Value Reference Range Interpretation Comments Segs-Bands # (test code = Segs-Bands #) 4.5 1.5-8.1 [facility] CenterSqvpyyhAVOKZFIQSN9512-55-92 14:38:00 Test Item Value Reference Range Interpretation Comments Basophils (test code = 0.5 See_Comment [Aut omated message] The Basophils) system which ge nerated this result tra nsmitted reference range : <=1.0. The reference r lv was not used to int erpret this result as normal/abnormal . [facility] CenterDovxfqrZWYLYECYPS1641-82-90 14:38:00 Test Item Value Reference Range Interpretation Comments Monocytes (test code = Monocytes) 5.8 2.0-12.0 [facility] CenterEyaqspjXHUZUHHENZ1921-19-84 14:38:00 Test Item Value Reference Range Interpretation Comments Eosinophils (test code = 1.4 See_Comment [A utomated message] The Eosinophils) system which ge nerated this result tra nsmitted reference range : <=4.0. The reference r lv was not used to int erpret this result as normal/abnormal . [facility] CenterPcaashoUSZSLJTZUA5174-44-06 14:38:00 Test Item Value Reference Range Interpretation Comments Eosinophils # (test code 0.1 See_Comment [A utomated message] The = Eosinophils #) system whic h generated this result tra nsmitted reference range : <=0.5. The reference r lv was not used to int erpret this result as normal/abnormal . [facility] HospitalAcbcimnTYBIYZQYSG4135-18-91 14:38:00 Test Item Value Reference Range Interpretation Comments HIV 1/2 Ab (test code Negative *NA*(08/03/15 = HIV 1/2 Ab) 9:38 AM) [facility] HospitalJjkbnwpLQHRFDMAWL9199-00-88 14:38:00 Test Item Value Reference Range Interpretation Comments Hep C Ab (test code = Negative *NA*(08/03/15 Hep C Ab) 9:38 AM) [facility]2016-06-23 14:38:00 Test Item Value Reference Range Interpretation Comments eGFR (test code = eGFR) 79 [facility]2016-06-23 14:38:00 Test Item Value Reference Range Interpretation Comments Sodium Lvl (test code = Sodium Lvl) 144 135-145 [place] 294246-06-23 14:38:00 Test Item Value Reference Range Interpretation Comments Chloride Lvl (test code = Chloride Lvl) 104 95-109 [facility]2016-06-23 14:38:00 Test Item Value Reference Range Interpretation Comments Potassium Lvl (test code = Potassium 4.6 3.5-5.1 Lvl) [facility]2016-06-23 14:38:00 Test Item Value Reference Range Interpretation Comments Calcium Lvl (test code = Calcium Lvl) 9.4 8.5-10.5 [facility]2016-06-23 14:38:00 Test Item Value Reference Range Interpretation Comments CO2 (test code = CO2) 31 24-32 [facility]2016-06-23 14:38:00 Test Item Value Reference Range Interpretation Comments Glucose Lvl (test code = Glucose Lvl) 126 70-99 [facility]2016-06-23 14:38:00 Test Item Value Reference Range Interpretation Comments Creatinine Lvl (test code = Creatinine 0.84 0.50-1.40 Lvl) [facility]2016-06-23 14:38:00 Test Item Value Reference Range Interpretation Comments BUN (test code = BUN) 17 7-22 [facility]2016-06-23 14:38:00 Test Item Value Reference Range Interpretation Comments AGAP (test code = AGAP) 13.6 10.0-20.0 [facility] CenterVvkeoguGZMXVYEJLR9510-99-28 14:38:00 Test Item Value Reference Range Interpretation Comments MCH (test code = MCH) 28.8 pg 27.0-31.0 [facility] CenterKliqtxaXOGZAKQSVL8115-69-40 14:38:00 Test Item Value Reference Range Interpretation Comments Hgb (test code = Hgb) 12.1 12.0-16.0 [facility] CenterEhrfjcdPDRSLBSZTP1582-81-46 14:38:00 Test Item Value Reference Range Interpretation Comments RBC (test code = RBC) 4.20 4.20-5.40 [facility] CenterDdofmoqXLLSMBUWLJ7931-79-02 14:38:00 Test Item Value Reference Range Interpretation Comments MCV (test code = MCV) 89.2 80.0-98.0 [facility] CenterWgftxmfWIKHFZWAMJ1773-49-38 14:38:00 Test Item Value Reference Range Interpretation Comments Hct (test code = Hct) 37.5 36.0-48.0 [facility] CenterLqjtehpQEAGIRXOOB2874-58-52 14:38:00 Test Item Value Reference Range Interpretation Comments WBC (test code = WBC) 7.4 3.7-10.4 [facility] CenterGczcbpuYPRFTIJIPR2009-13-56 14:38:00 Test Item Value Reference Range Interpretation Comments MCHC (test code = MCHC) 32.3 32.0-36.0 [facility] CenterGkupctmZRQTXVIWHF7086-35-14 14:38:00 Test Item Value Reference Range Interpretation Comments RDW (test code = RDW) 14.3 11.5-14.5 [facility] CenterUxxorukNOTKWCNDEB3407-45-45 14:38:00 Test Item Value Reference Range Interpretation Comments MPV (test code = MPV) 9.3 7.4-10.4 [place] 553406-06-23 14:38:00 Test Item Value Reference Range Interpretation Comments Platelet (test code = Platelet) 193 133-450 [facility] CenterSywdajwDXSZEALCJO2676-09-51 14:38:00 Test Item Value Reference Range Interpretation Comments Basophils # (test code 0.0 See_Comment [Aut omated message] The = Basophils #) system which generated this result tra nsmitted reference range : <=0.2. The reference r lv was not used to int erpret this result as normal/abnormal . [facility] CenterRcagqlsCCCDRAIZET6469-69-28 14:38:00 Test Item Value Reference Range Interpretation Comments Segs (test code = Segs) 61.4 45.0-75.0 [facility] CenterJrubknnNZBSCWHOYN6664-79-40 14:38:00 Test Item Value Reference Range Interpretation Comments Lymphocytes (test code = Lymphocytes) 30.9 20.0-40.0 [facility] CenterXgykgqbIYILCUQQQC2199-50-03 14:38:00 Test Item Value Reference Range Interpretation Comments Lymphocytes # (test code = Lymphocytes 2.3 1.0-5.5 #) [facility] CenterQknimzwOODHWLHYDW1662-38-68 14:38:00 Test Item Value Reference Range Interpretation Comments Monocytes # (test code 0.4 See_Comment [Aut omated message] The = Monocytes #) system which generated this result tra nsmitted reference range : <=0.8. The reference r lv was not used to int erpret this result as normal/abnormal . [facility] CenterKvjrrjzEIDABGPJRP1137-89-78 14:38:00 Test Item Value Reference Range Interpretation Comments Segs-Bands # (test code = Segs-Bands #) 4.5 1.5-8.1 [facility] CenterCqllkkzLHZYVDGCSS8660-10-38 14:38:00 Test Item Value Reference Range Interpretation Comments Basophils (test code = 0.5 See_Comment [Aut omated message] The Basophils) system which ge nerated this result tra nsmitted reference range : <=1.0. The reference r lv was not used to int erpret this result as normal/abnormal . [facility] CenterQcinkibBIIRMGMJTH4522-40-44 14:38:00 Test Item Value Reference Range Interpretation Comments Monocytes (test code = Monocytes) 5.8 2.0-12.0 [facility] CenterUaixaryKGTXZQUKGZ1868-38-44 14:38:00 Test Item Value Reference Range Interpretation Comments Eosinophils (test code = 1.4 See_Comment [A utomated message] The Eosinophils) system which ge nerated this result tra nsmitted reference range : <=4.0. The reference r lv was not used to int erpret this result as normal/abnormal . [facility] CenterUambxzjLRQTKYPSWJ0589-77-02 14:38:00 Test Item Value Reference Range Interpretation Comments Eosinophils # (test code 0.1 See_Comment [A utomated message] The = Eosinophils #) system whic h generated this result tra nsmitted reference range : <=0.5. The reference r lv was not used to int erpret this result as normal/abnormal . [facility]WRJALJKGN7779[facility] 14:38:00 Test Item Value Reference Range Interpretation Comments HIV 1/2 Ab (test code Negative *NA*(08/03/15 = HIV 1/2 Ab) 9:38 AM) [facility] TylerZkovvwbFLORAQKYIC9218-15-70 14:38:00 Test Item Value Reference Range Interpretation Comments Hep C Ab (test code = Negative *NA*(08/03/15 Hep C Ab) 9:38 AM) [facility]2016-06-23 14:38:00 Test Item Value Reference Range Interpretation Comments eGFR (test code = eGFR) 79 [facility]2016-06-23 14:38:00 Test Item Value Reference Range Interpretation Comments Sodium Lvl (test code = Sodium Lvl) 144 135-145 [facility]2016-06-23 14:38:00 Test Item Value Reference Range Interpretation Comments Chloride Lvl (test code = Chloride Lvl) 104 95-109 [facility]2016-06-23 14:38:00 Test Item Value Reference Range Interpretation Comments Potassium Lvl (test code = Potassium 4.6 3.5-5.1 Lvl) [facility]2016-06-23 14:38:00 Test Item Value Reference Range Interpretation Comments Calcium Lvl (test code = Calcium Lvl) 9.4 8.5-10.5 [facility]2016-06-23 14:38:00 Test Item Value Reference Range Interpretation Comments CO2 (test code = CO2) 31 24-32 [facility]2016-06-23 14:38:00 Test Item Value Reference Range Interpretation Comments Glucose Lvl (test code = Glucose Lvl) 126 70-99 [facility]2016-06-23 14:38:00 Test Item Value Reference Range Interpretation Comments Creatinine Lvl (test code = Creatinine 0.84 0.50-1.40 Lvl) [facility]2016-06-23 14:38:00 Test Item Value Reference Range Interpretation Comments BUN (test code = BUN) 17 7-22 [facility]2016-06-23 14:38:00 Test Item Value Reference Range Interpretation Comments AGAP (test code = AGAP) 13.6 10.0-20.0 [facility] CenterLtzqeoiRPIFMYSNWF2270-23-38 14:38:00 Test Item Value Reference Range Interpretation Comments MCH (test code = MCH) 28.8 pg 27.0-31.0 [facility] CenterTpckwbcTEMJLUWOFW7418-83-23 14:38:00 Test Item Value Reference Range Interpretation Comments Hgb (test code = Hgb) 12.1 12.0-16.0 [facility] CenterBsalzygAFFUNBXZWM2877-39-46 14:38:00 Test Item Value Reference Range Interpretation Comments RBC (test code = RBC) 4.20 4.20-5.40 [facility] CenterFbqokutDUEARGLLZL0841-46-96 14:38:00 Test Item Value Reference Range Interpretation Comments MCV (test code = MCV) 89.2 80.0-98.0 [place] 553406-06-23 14:38:00 Test Item Value Reference Range Interpretation Comments Hct (test code = Hct) 37.5 36.0-48.0 [facility] CenterEcjprovUVEOUMHNIV6543-88-05 14:38:00 Test Item Value Reference Range Interpretation Comments WBC (test code = WBC) 7.4 3.7-10.4 [facility] CenterUvdhfbgCLUSMZHWSL0049-60-91 14:38:00 Test Item Value Reference Range Interpretation Comments MCHC (test code = MCHC) 32.3 32.0-36.0 [facility] CenterYvfpdhuSOPGDMUORF1638-02-91 14:38:00 Test Item Value Reference Range Interpretation Comments RDW (test code = RDW) 14.3 11.5-14.5 [facility] CenterHksricrRFQJGOHCVB1905-78-64 14:38:00 Test Item Value Reference Range Interpretation Comments MPV (test code = MPV) 9.3 7.4-10.4 [facility] CenterPoifjbsHVGOUYOLUZ1776-43-12 14:38:00 Test Item Value Reference Range Interpretation Comments Platelet (test code = Platelet) 193 133-450 [facility] CenterItkonzzLWSLXFUABF9831-43-16 14:38:00 Test Item Value Reference Range Interpretation Comments Basophils # (test code 0.0 See_Comment [Aut omated message] The = Basophils #) system which generated this result tra nsmitted reference range : <=0.2. The reference r lv was not used to int erpret this result as normal/abnormal . [facility] CenterLtojmppDYIYPSPAZP2190-73-27 14:38:00 Test Item Value Reference Range Interpretation Comments Segs (test code = Segs) 61.4 45.0-75.0 [facility] CenterHfdhljfJRCHDSMWGL5855-10-21 14:38:00 Test Item Value Reference Range Interpretation Comments Lymphocytes (test code = Lymphocytes) 30.9 20.0-40.0 [place] 553406-06-23 14:38:00 Test Item Value Reference Range Interpretation Comments Lymphocytes # (test code = Lymphocytes 2.3 1.0-5.5 #) [facility] CenterWteekxzGPSJFOAYZQ3812-27-79 14:38:00 Test Item Value Reference Range Interpretation Comments Monocytes # (test code 0.4 See_Comment [Aut omated message] The = Monocytes #) system which generated this result tra nsmitted reference range : <=0.8. The reference r lv was not used to int erpret this result as normal/abnormal . [facility] CenterJkpzsepHTSATCECDP9500-62-76 14:38:00 Test Item Value Reference Range Interpretation Comments Segs-Bands # (test code = Segs-Bands #) 4.5 1.5-8.1 [facility] CenterDvuoqeqJGPJEDTLWY4731-16-63 14:38:00 Test Item Value Reference Range Interpretation Comments Basophils (test code = 0.5 See_Comment [Aut omated message] The Basophils) system which ge nerated this result tra nsmitted reference range : <=1.0. The reference r lv was not used to int erpret this result as normal/abnormal . [facility] CenterMkgjgpdMSPSTGTUWS1960-25-20 14:38:00 Test Item Value Reference Range Interpretation Comments Monocytes (test code = Monocytes) 5.8 2.0-12.0 [facility] CenterKudbtcrVIZFBCMAAL7511-28-08 14:38:00 Test Item Value Reference Range Interpretation Comments Eosinophils (test code = 1.4 See_Comment [A utomated message] The Eosinophils) system which ge nerated this result tra nsmitted reference range : <=4.0. The reference r lv was not used to int erpret this result as normal/abnormal . [facility] CenterMmjlnurVVKYSJRQWV0680-37-46 14:38:00 Test Item Value Reference Range Interpretation Comments Eosinophils # (test code 0.1 See_Comment [A utomated message] The = Eosinophils #) system whic h generated this result tra nsmitted reference range : <=0.5. The reference r lv was not used to int erpret this result as normal/abnormal . [facility]AbchriwWTLLUKUQJN2358-59-11 14:38:00 Test Item Value Reference Range Interpretation Comments HIV 1/2 Ab (test code Negative *NA*(08/03/15 = HIV 1/2 Ab) 9:38 AM) [facility]ErlyfzwPICOGMVZIH1139-20-23 14:38:00 Test Item Value Reference Range Interpretation Comments Hep C Ab (test code = Negative *NA*(08/03/15 Hep C Ab) 9:38 AM) [facility]2016-06-23 14:38:00 Test Item Value Reference Range Interpretation Comments eGFR (test code = eGFR) 79 [facility] ZNKWQ6862-82-02 14:38:00 Test Item Value Reference Range Interpretation Comments Sodium Lvl (test code = Sodium Lvl) 144 135-145 [facility]2016-06-23 14:38:00 Test Item Value Reference Range Interpretation Comments Chloride Lvl (test code = Chloride Lvl) 104 95-109 [facility]2016-06-23 14:38:00 Test Item Value Reference Range Interpretation Comments Potassium Lvl (test code = Potassium 4.6 3.5-5.1 Lvl) [facility]2016-06-23 14:38:00 Test Item Value Reference Range Interpretation Comments Calcium Lvl (test code = Calcium Lvl) 9.4 8.5-10.5 [facility]2016-06-23 14:38:00 Test Item Value Reference Range Interpretation Comments CO2 (test code = CO2) 31 24-32 [facility]2016-06-23 14:38:00 Test Item Value Reference Range Interpretation Comments Glucose Lvl (test code = Glucose Lvl) 126 70-99 [facility]2016-06-23 14:38:00 Test Item Value Reference Range Interpretation Comments Creatinine Lvl (test code = Creatinine 0.84 0.50-1.40 Lvl) [facility]2016-06-23 14:38:00 Test Item Value Reference Range Interpretation Comments BUN (test code = BUN) 17 7-22 [facility]2016-06-23 14:38:00 Test Item Value Reference Range Interpretation Comments AGAP (test code = AGAP) 13.6 10.0-20.0 [facility] CenterFchhbrjBSPALCUDSP9639-95-84 14:38:00 Test Item Value Reference Range Interpretation Comments MCH (test code = MCH) 28.8 pg 27.0-31.0 [facility] CenterGdzmwlsOLAARSPUHP0414-65-25 14:38:00 Test Item Value Reference Range Interpretation Comments Hgb (test code = Hgb) 12.1 12.0-16.0 [facility] CenterFqnuzusEKBNDLWROP3272-48-65 14:38:00 Test Item Value Reference Range Interpretation Comments RBC (test code = RBC) 4.20 4.20-5.40 [facility] CenterCikeylvJCQDUQZOMO0560-72-55 14:38:00 Test Item Value Reference Range Interpretation Comments MCV (test code = MCV) 89.2 80.0-98.0 [facility] CenterYhajxiqXILDLDSXXO0406-15-87 14:38:00 Test Item Value Reference Range Interpretation Comments Hct (test code = Hct) 37.5 36.0-48.0 [facility] CenterMvohghaBQKHPDAMZV3351-25-09 14:38:00 Test Item Value Reference Range Interpretation Comments WBC (test code = WBC) 7.4 3.7-10.4 [facility] CenterLubygjtWIECBWZHUH3127-56-33 14:38:00 Test Item Value Reference Range Interpretation Comments MCHC (test code = MCHC) 32.3 32.0-36.0 [facility] CenterYrcthzrRXQNUBBNNZ2079-89-65 14:38:00 Test Item Value Reference Range Interpretation Comments RDW (test code = RDW) 14.3 11.5-14.5 [facility] CenterNaotcpbNEBRJZZDGD9844-76-45 14:38:00 Test Item Value Reference Range Interpretation Comments MPV (test code = MPV) 9.3 7.4-10.4 [facility] CenterFhlringBKYLFPLRNM5928-19-28 14:38:00 Test Item Value Reference Range Interpretation Comments Platelet (test code = Platelet) 193 133-450 [facility] CenterRzxuhzfGQAMYXCVQP6832-64-81 14:38:00 Test Item Value Reference Range Interpretation Comments Basophils # (test code 0.0 See_Comment [Aut omated message] The = Basophils #) system which generated this result tra nsmitted reference range : <=0.2. The reference r lv was not used to int erpret this result as normal/abnormal . [facility] CenterIfrtowaRVKYYCSBAR2123-98-92 14:38:00 Test Item Value Reference Range Interpretation Comments Segs (test code = Segs) 61.4 45.0-75.0 [facility] CenterIlkuwbyIEIYPSTTID6498-27-06 14:38:00 Test Item Value Reference Range Interpretation Comments Lymphocytes (test code = Lymphocytes) 30.9 20.0-40.0 [facility] CenterLmbtoatQZBKGPPINY6990-12-48 14:38:00 Test Item Value Reference Range Interpretation Comments Lymphocytes # (test code = Lymphocytes 2.3 1.0-5.5 #) [facility] CenterGnmqptnYVNLDFZYAK9526-25-69 14:38:00 Test Item Value Reference Range Interpretation Comments Monocytes # (test code 0.4 See_Comment [Aut omated message] The = Monocytes #) system which generated this result tra nsmitted reference range : <=0.8. The reference r lv was not used to int erpret this result as normal/abnormal . [facility] CenterEzvdgscWHOLCHNAXV4392-92-06 14:38:00 Test Item Value Reference Range Interpretation Comments Segs-Bands # (test code = Segs-Bands #) 4.5 1.5-8.1 [facility] CenterIycfwyoFJYLXGNZUQ5241-56-97 14:38:00 Test Item Value Reference Range Interpretation Comments Basophils (test code = 0.5 See_Comment [Aut omated message] The Basophils) system which ge nerated this result tra nsmitted reference range : <=1.0. The reference r lv was not used to int erpret this result as normal/abnormal . [facility] CenterQaqbjpyNDMIRCCHEF2126-22-24 14:38:00 Test Item Value Reference Range Interpretation Comments Monocytes (test code = Monocytes) 5.8 2.0-12.0 [facility] CenterJwlgewaHMVKQTUIMQ4673-31-54 14:38:00 Test Item Value Reference Range Interpretation Comments Eosinophils (test code = 1.4 See_Comment [A utomated message] The Eosinophils) system which ge nerated this result tra nsmitted reference range : <=4.0. The reference r lv was not used to int erpret this result as normal/abnormal . [facility] CenterJmuakdaNZZOPHQCNO9509-27-82 14:38:00 Test Item Value Reference Range Interpretation Comments Eosinophils # (test code 0.1 See_Comment [A utomated message] The = Eosinophils #) system ic h generated this result tra nsmitted reference range : <=0.5. The reference r lv was not used to int erpret this result as normal/abnormal . [facility]WEGNTG3399[facility]-61 14:38:00 Test Item Value Reference Range Interpretation Comments HIV 1/2 Ab (test code Negative *NA*(08/03/15 = HIV 1/2 Ab) 9:38 AM) [facility]IdeiyjyOCMOJLKNNB0920-89-57 14:38:00 Test Item Value Reference Range Interpretation Comments Hep C Ab (test code = Negative *NA*(08/03/15 Hep C Ab) 9:38 AM) [facility] IGCBC4597-33-77 14:38:00 Test Item Value Reference Range Interpretation Comments eGFR (test code = eGFR) 79 [facility]2016-06-23 14:38:00 Test Item Value Reference Range Interpretation Comments Sodium Lvl (test code = Sodium Lvl) 144 135-145 [facility]2016-06-23 14:38:00 Test Item Value Reference Range Interpretation Comments Chloride Lvl (test code = Chloride Lvl) 104 95-109 [facility]2016-06-23 14:38:00 Test Item Value Reference Range Interpretation Comments Potassium Lvl (test code = Potassium 4.6 3.5-5.1 Lvl) [facility]2016-06-23 14:38:00 Test Item Value Reference Range Interpretation Comments Calcium Lvl (test code = Calcium Lvl) 9.4 8.5-10.5 [facility]2016-06-23 14:38:00 Test Item Value Reference Range Interpretation Comments CO2 (test code = CO2) 31 24-32 [facility]2016-06-23 14:38:00 Test Item Value Reference Range Interpretation Comments Glucose Lvl (test code = Glucose Lvl) 126 70-99 [facility]2016-06-23 14:38:00 Test Item Value Reference Range Interpretation Comments Creatinine Lvl (test code = Creatinine 0.84 0.50-1.40 Lvl) [facility]2016-06-23 14:38:00 Test Item Value Reference Range Interpretation Comments BUN (test code = BUN) 17 7-22 [facility]2016-06-23 14:38:00 Test Item Value Reference Range Interpretation Comments AGAP (test code = AGAP) 13.6 10.0-20.0 [facility]YglzhzzUTBXBIAIMA4871-90-01 14:38:00 Test Item Value Reference Range Interpretation Comments MCH (test code = MCH) 28.8 pg 27.0-31.0 [facility] CenterPdlhavgUDVWEKTSNS8259-38-86 14:38:00 Test Item Value Reference Range Interpretation Comments Hgb (test code = Hgb) 12.1 12.0-16.0 [facility] CenterLoqfzrlTGUMAIPUMP6328-26-88 14:38:00 Test Item Value Reference Range Interpretation Comments RBC (test code = RBC) 4.20 4.20-5.40 [facility] CenterQyxfbkxEKWKHDEMIB5025-01-19 14:38:00 Test Item Value Reference Range Interpretation Comments MCV (test code = MCV) 89.2 80.0-98.0 [facility] CenterAxsmknrPJJRIOGUER4216-92-12 14:38:00 Test Item Value Reference Range Interpretation Comments Hct (test code = Hct) 37.5 36.0-48.0 [facility] CenterFnytftoBFPEJPYVAO3681-89-76 14:38:00 Test Item Value Reference Range Interpretation Comments WBC (test code = WBC) 7.4 3.7-10.4 [facility] CenterXlhncrhJAAIOZBDLZ5139-95-79 14:38:00 Test Item Value Reference Range Interpretation Comments MCHC (test code = MCHC) 32.3 32.0-36.0 [facility] CenterGpqivmoAPRMTTEMJA9211-48-69 14:38:00 Test Item Value Reference Range Interpretation Comments RDW (test code = RDW) 14.3 11.5-14.5 [facility] CenterFzfolaaQEGSAJIDYI4023-31-65 14:38:00 Test Item Value Reference Range Interpretation Comments MPV (test code = MPV) 9.3 7.4-10.4 [facility] CenterVczaojlYRFNZCIQPG3343-34-19 14:38:00 Test Item Value Reference Range Interpretation Comments Platelet (test code = Platelet) 193 133-450 [facility] CenterZvzgqvqLICXXNGKIM5009-60-42 14:38:00 Test Item Value Reference Range Interpretation Comments Basophils # (test code 0.0 See_Comment [Aut omated message] The = Basophils #) system which generated this result tra nsmitted reference range : <=0.2. The reference r lv was not used to int erpret this result as normal/abnormal . [facility] CenterTplqnhbHHLIWQZMQP7566-42-30 14:38:00 Test Item Value Reference Range Interpretation Comments Segs (test code = Segs) 61.4 45.0-75.0 [facility] CenterQcegzxbLBLAXHKXSY9401-11-63 14:38:00 Test Item Value Reference Range Interpretation Comments Lymphocytes (test code = Lymphocytes) 30.9 20.0-40.0 [facility] CenterVtfglbqSJEOGKZHAN4135-71-86 14:38:00 Test Item Value Reference Range Interpretation Comments Lymphocytes # (test code = Lymphocytes 2.3 1.0-5.5 #) [facility] CenterXgykheaPWVECRTTUQ1333-91-69 14:38:00 Test Item Value Reference Range Interpretation Comments Monocytes # (test code 0.4 See_Comment [Aut omated message] The = Monocytes #) system which generated this result tra nsmitted reference range : <=0.8. The reference r lv was not used to int erpret this result as normal/abnormal . [facility] CenterQjwcwiwEZFQMIQYZH0570-69-75 14:38:00 Test Item Value Reference Range Interpretation Comments Segs-Bands # (test code = Segs-Bands #) 4.5 1.5-8.1 [facility] CenterTefzhyaLLCGQUFKJD4314-50-66 14:38:00 Test Item Value Reference Range Interpretation Comments Basophils (test code = 0.5 See_Comment [Aut omated message] The Basophils) system which ge nerated this result tra nsmitted reference range : <=1.0. The reference r lv was not used to int erpret this result as normal/abnormal . [facility] CenterVxuwuxvHWIKAAIEVA8642-73-53 14:38:00 Test Item Value Reference Range Interpretation Comments Monocytes (test code = Monocytes) 5.8 2.0-12.0 [facility] CenterSmiajfjYUJDLBOTRV6508-65-93 14:38:00 Test Item Value Reference Range Interpretation Comments Eosinophils (test code = 1.4 See_Comment [A utomated message] The Eosinophils) system which ge nerated this result tra nsmitted reference range : <=4.0. The reference r lv was not used to int erpret this result as normal/abnormal . [facility] CenterOhrwbxaDFRUVGTWQM7553-35-04 14:38:00 Test Item Value Reference Range Interpretation Comments Eosinophils # (test code 0.1 See_Comment [A utomated message] The = Eosinophils #) system whic h generated this result tra nsmitted reference range : <=0.5. The reference r lv was not used to int erpret this result as normal/abnormal . [facility]YlbhzzcMHDGKMJFUB8130-24-27 14:38:00 Test Item Value Reference Range Interpretation Comments HIV 1/2 Ab (test code Negative *NA*(08/03/15 = HIV 1/2 Ab) 9:38 AM) [facility]nhOQLMUPUAQE6772-43-21 14:38:00 Test Item Value Reference Range Interpretation Comments Hep C Ab (test code = Negative *NA*(08/03/15 Hep C Ab) 9:38 AM) [facility]2016-06-23 14:38:00 Test Item Value Reference Range Interpretation Comments eGFR (test code = eGFR) 79 [facility]2016-06-23 14:38:00 Test Item Value Reference Range Interpretation Comments Sodium Lvl (test code = Sodium Lvl) 144 135-145 [facility]2016-06-23 14:38:00 Test Item Value Reference Range Interpretation Comments Chloride Lvl (test code = Chloride Lvl) 104 95-109 [facility]2016-06-23 14:38:00 Test Item Value Reference Range Interpretation Comments Potassium Lvl (test code = Potassium 4.6 3.5-5.1 Lvl) [facility]2016-06-23 14:38:00 Test Item Value Reference Range Interpretation Comments Calcium Lvl (test code = Calcium Lvl) 9.4 8.5-10.5 [facility]2016-06-23 14:38:00 Test Item Value Reference Range Interpretation Comments CO2 (test code = CO2) 31 24-32 [facility]2016-06-23 14:38:00 Test Item Value Reference Range Interpretation Comments Glucose Lvl (test code = Glucose Lvl) 126 70-99 [facility]2016-06-23 14:38:00 Test Item Value Reference Range Interpretation Comments Creatinine Lvl (test code = Creatinine 0.84 0.50-1.40 Lvl) [facility]2016-06-23 14:38:00 Test Item Value Reference Range Interpretation Comments BUN (test code = BUN) 17 7-22 [facility]2016-06-23 14:38:00 Test Item Value Reference Range Interpretation Comments AGAP (test code = AGAP) 13.6 10.0-20.0 [facility] CenterOrvzwztEKLDLZOXFB1059-25-75 14:38:00 Test Item Value Reference Range Interpretation Comments MCH (test code = MCH) 28.8 pg 27.0-31.0 [facility] CenterXwklmxuBLFIDOTRIP1780-61-92 14:38:00 Test Item Value Reference Range Interpretation Comments Hgb (test code = Hgb) 12.1 12.0-16.0 [facility] CenterLdcjbhbYZRAVKDKOH0599-06-50 14:38:00 Test Item Value Reference Range Interpretation Comments RBC (test code = RBC) 4.20 4.20-5.40 [facility] CenterRvumeqxUKHKJCAFAZ9137-66-33 14:38:00 Test Item Value Reference Range Interpretation Comments MCV (test code = MCV) 89.2 80.0-98.0 [facility] CenterErgbedjQLRVUYBRKF4093-67-38 14:38:00 Test Item Value Reference Range Interpretation Comments Hct (test code = Hct) 37.5 36.0-48.0 [facility] CenterJtbhwvgHBETHBWFZZ9787-49-05 14:38:00 Test Item Value Reference Range Interpretation Comments WBC (test code = WBC) 7.4 3.7-10.4 [facility] CenterHjvhprbDNNSIHYPOR0381-88-87 14:38:00 Test Item Value Reference Range Interpretation Comments MCHC (test code = MCHC) 32.3 32.0-36.0 [facility] CenterGzzdqnrBTFBTGVVEQ2555-08-73 14:38:00 Test Item Value Reference Range Interpretation Comments RDW (test code = RDW) 14.3 11.5-14.5 [facility] CenterYtnjptwQKQRVHEJVK9564-71-74 14:38:00 Test Item Value Reference Range Interpretation Comments MPV (test code = MPV) 9.3 7.4-10.4 [facility] CenterGobjtkdZGMDPNYVMN6346-17-67 14:38:00 Test Item Value Reference Range Interpretation Comments Platelet (test code = Platelet) 193 133-450 [facility] CenterEvxxbmkNJRHHGQRDQ4003-26-81 14:38:00 Test Item Value Reference Range Interpretation Comments Basophils # (test code 0.0 See_Comment [Aut omated message] The = Basophils #) system which generated this result tra nsmitted reference range : <=0.2. The reference r lv was not used to int erpret this result as normal/abnormal . [facility] CenterCkstqpwVTAJCKEVJS8200-83-16 14:38:00 Test Item Value Reference Range Interpretation Comments Segs (test code = Segs) 61.4 45.0-75.0 [facility] CenterPixqamcCGLMNRDTYI4045-42-95 14:38:00 Test Item Value Reference Range Interpretation Comments Lymphocytes (test code = Lymphocytes) 30.9 20.0-40.0 [facility] CenterRmouqvgUBEJVGHNBD5103-56-66 14:38:00 Test Item Value Reference Range Interpretation Comments Lymphocytes # (test code = Lymphocytes 2.3 1.0-5.5 #) [facility] CenterNcocqurJYDJWMQMGT3045-97-73 14:38:00 Test Item Value Reference Range Interpretation Comments Monocytes # (test code 0.4 See_Comment [Aut omated message] The = Monocytes #) system which generated this result tra nsmitted reference range : <=0.8. The reference r lv was not used to int erpret this result as normal/abnormal . [facility] CenterRempatlCSFASALRPX4688-38-13 14:38:00 Test Item Value Reference Range Interpretation Comments Segs-Bands # (test code = Segs-Bands #) 4.5 1.5-8.1 [facility] CenterAqujwtgNAUKKHFSOT0623-42-96 14:38:00 Test Item Value Reference Range Interpretation Comments Basophils (test code = 0.5 See_Comment [Aut omated message] The Basophils) system which ge nerated this result tra nsmitted reference range : <=1.0. The reference r lv was not used to int erpret this result as normal/abnormal . [facility] CenterJunimcdNZHSDYARPZ1973-35-16 14:38:00 Test Item Value Reference Range Interpretation Comments Monocytes (test code = Monocytes) 5.8 2.0-12.0 [facility] CenterLymcblgAATAVAWJHM5775-32-35 14:38:00 Test Item Value Reference Range Interpretation Comments Eosinophils (test code = 1.4 See_Comment [A utomated message] The Eosinophils) system which ge nerated this result tra nsmitted reference range : <=4.0. The reference r lv was not used to int erpret this result as normal/abnormal . [facility] CenterNkjwflyMEMWRDDTJT7278-83-17 14:38:00 Test Item Value Reference Range Interpretation Comments Eosinophils # (test code 0.1 See_Comment [A utomated message] The = Eosinophils #) system whic h generated this result tra nsmitted reference range : <=0.5. The reference r lv was not used to int erpret this result as normal/abnormal . [facility]OvwqnxaSZIKBYXYZG3381-85-71 14:38:00 Test Item Value Reference Range Interpretation Comments HIV 1/2 Ab (test code Negative *NA*(08/03/15 = HIV 1/2 Ab) 9:38 AM) [facility]AfvijckDJHJQUOQJR7282-36-46 14:38:00 Test Item Value Reference Range Interpretation Comments Hep C Ab (test code = Negative *NA*(08/03/15 Hep C Ab) 9:38 AM) [facility]2016-06-23 14:38:00 Test Item Value Reference Range Interpretation Comments eGFR (test code = eGFR) 79 [facility]2016-06-23 14:38:00 Test Item Value Reference Range Interpretation Comments Sodium Lvl (test code = Sodium Lvl) 144 135-145 [facility]2016-06-23 14:38:00 Test Item Value Reference Range Interpretation Comments Chloride Lvl (test code = Chloride Lvl) 104 95-109 [facility]2016-06-23 14:38:00 Test Item Value Reference Range Interpretation Comments Potassium Lvl (test code = Potassium 4.6 3.5-5.1 Lvl) [facility]2016-06-23 14:38:00 Test Item Value Reference Range Interpretation Comments Calcium Lvl (test code = Calcium Lvl) 9.4 8.5-10.5 [facility]2016-06-23 14:38:00 Test Item Value Reference Range Interpretation Comments CO2 (test code = CO2) 31 24-32 [facility]2016-06-23 14:38:00 Test Item Value Reference Range Interpretation Comments Glucose Lvl (test code = Glucose Lvl) 126 70-99 [facility]2016-06-23 14:38:00 Test Item Value Reference Range Interpretation Comments Creatinine Lvl (test code = Creatinine 0.84 0.50-1.40 Lvl) [facility]2016-06-23 14:38:00 Test Item Value Reference Range Interpretation Comments BUN (test code = BUN) 17 7-22 [facility]2016-06-23 14:38:00 Test Item Value Reference Range Interpretation Comments AGAP (test code = AGAP) 13.6 10.0-20.0 [facility] CenterRtbahrcVKWMAYMXHE2825-68-63 14:38:00 Test Item Value Reference Range Interpretation Comments MCH (test code = MCH) 28.8 pg 27.0-31.0 [facility] CenterPohbluiUMAJYSWETM8673-52-32 14:38:00 Test Item Value Reference Range Interpretation Comments Hgb (test code = Hgb) 12.1 12.0-16.0 [facility] CenterReqraetQGCERRXEBL4487-54-28 14:38:00 Test Item Value Reference Range Interpretation Comments RBC (test code = RBC) 4.20 4.20-5.40 [facility] CenterAehpcijJKXJRFMFXS0886-54-88 14:38:00 Test Item Value Reference Range Interpretation Comments MCV (test code = MCV) 89.2 80.0-98.0 [facility] CenterAkoktxcJAIRFAHUMY9141-01-93 14:38:00 Test Item Value Reference Range Interpretation Comments Hct (test code = Hct) 37.5 36.0-48.0 [facility] CenterCpeqeeaPAOSGFZCOY3590-40-19 14:38:00 Test Item Value Reference Range Interpretation Comments WBC (test code = WBC) 7.4 3.7-10.4 [facility] CenterMfdchovPMNXHAXZUH7072-78-59 14:38:00 Test Item Value Reference Range Interpretation Comments MCHC (test code = MCHC) 32.3 32.0-36.0 [facility] CenterVtbtpvwIDYDDRKMKE1490-84-47 14:38:00 Test Item Value Reference Range Interpretation Comments RDW (test code = RDW) 14.3 11.5-14.5 [facility] CenterIkwnjcySMZVWDFDWG2077-11-95 14:38:00 Test Item Value Reference Range Interpretation Comments MPV (test code = MPV) 9.3 7.4-10.4 [facility] CenterVxofjovPAKFNFQEAW0737-63-17 14:38:00 Test Item Value Reference Range Interpretation Comments Platelet (test code = Platelet) 193 133-450 [facility] CenterNatebnwUSHNQXWNXY7094-77-65 14:38:00 Test Item Value Reference Range Interpretation Comments Basophils # (test code 0.0 See_Comment [Aut omated message] The = Basophils #) system which generated this result tra nsmitted reference range : <=0.2. The reference r lv was not used to int erpret this result as normal/abnormal . [facility] CenterRmetoadMZNHPKCZHQ9156-70-84 14:38:00 Test Item Value Reference Range Interpretation Comments Segs (test code = Segs) 61.4 45.0-75.0 [facility] CenterEzdryljBYJSXUMJWG8958-19-52 14:38:00 Test Item Value Reference Range Interpretation Comments Lymphocytes (test code = Lymphocytes) 30.9 20.0-40.0 [facility] CenterYtngsrgIGUXHJOXLY4483-96-59 14:38:00 Test Item Value Reference Range Interpretation Comments Lymphocytes # (test code = Lymphocytes 2.3 1.0-5.5 #) [facility] CenterKmzsrzsBYCXWSZKRG3771-74-40 14:38:00 Test Item Value Reference Range Interpretation Comments Monocytes # (test code 0.4 See_Comment [Aut omated message] The = Monocytes #) system which generated this result tra nsmitted reference range : <=0.8. The reference r lv was not used to int erpret this result as normal/abnormal . [facility] CenterGwdkchzQYJZOGXXQV1455-36-88 14:38:00 Test Item Value Reference Range Interpretation Comments Segs-Bands # (test code = Segs-Bands #) 4.5 1.5-8.1 [facility] CenterQantewzLYGHNHNDZD2430-89-86 14:38:00 Test Item Value Reference Range Interpretation Comments Basophils (test code = 0.5 See_Comment [Aut omated message] The Basophils) system which ge nerated this result tra nsmitted reference range : <=1.0. The reference r lv was not used to int erpret this result as normal/abnormal . [facility] CenterVbqlkjmHRYXPFGEGI5138-02-15 14:38:00 Test Item Value Reference Range Interpretation Comments Monocytes (test code = Monocytes) 5.8 2.0-12.0 [facility] CenterYkgjfuoPOIQEMWVIL0878-79-35 14:38:00 Test Item Value Reference Range Interpretation Comments Eosinophils (test code = 1.4 See_Comment [A utomated message] The Eosinophils) system which ge nerated this result tra nsmitted reference range : <=4.0. The reference r lv was not used to int erpret this result as normal/abnormal . [facility] CenterPihzletTHKKXHTPBJ4405-64-96 14:38:00 Test Item Value Reference Range Interpretation Comments Eosinophils # (test code 0.1 See_Comment [A utomated message] The = Eosinophils #) system whic h generated this result tra nsmitted reference range : <=0.5. The reference r lv was not used to int erpret this result as normal/abnormal . [facility] HospitalTokwsinSXTOSYFPOS3651-15-87 14:38:00 Test Item Value Reference Range Interpretation Comments HIV 1/2 Ab (test code Negative *NA*(08/03/15 = HIV 1/2 Ab) 9:38 AM) [facility] HospitalHcwmqvbXNTQOGPLDN8188-26-73 14:38:00 Test Item Value Reference Range Interpretation Comments Hep C Ab (test code = Negative *NA*(08/03/15 Hep C Ab) 9:38 AM) [facility]2016-06-23 14:38:00 Test Item Value Reference Range Interpretation Comments eGFR (test code = eGFR) 79 [facility]2016-06-23 14:38:00 Test Item Value Reference Range Interpretation Comments Sodium Lvl (test code = Sodium Lvl) 144 135-145 [facility]2016-06-23 14:38:00 Test Item Value Reference Range Interpretation Comments Chloride Lvl (test code = Chloride Lvl) 104 95-109 [facility]2016-06-23 14:38:00 Test Item Value Reference Range Interpretation Comments Potassium Lvl (test code = Potassium 4.6 3.5-5.1 Lvl) [facility]2016-06-23 14:38:00 Test Item Value Reference Range Interpretation Comments Calcium Lvl (test code = Calcium Lvl) 9.4 8.5-10.5 [facility]2016-06-23 14:38:00 Test Item Value Reference Range Interpretation Comments CO2 (test code = CO2) 31 24-32 [facility]2016-06-23 14:38:00 Test Item Value Reference Range Interpretation Comments Glucose Lvl (test code = Glucose Lvl) 126 70-99 [facility]2016-06-23 14:38:00 Test Item Value Reference Range Interpretation Comments Creatinine Lvl (test code = Creatinine 0.84 0.50-1.40 Lvl) [facility]2016-06-23 14:38:00 Test Item Value Reference Range Interpretation Comments BUN (test code = BUN) 17 7-22 [facility]2016-06-23 14:38:00 Test Item Value Reference Range Interpretation Comments AGAP (test code = AGAP) 13.6 10.0-20.0 [facility] CenterWtkkrxtUGXYAXPICH0744-66-30 14:38:00 Test Item Value Reference Range Interpretation Comments MCH (test code = MCH) 28.8 pg 27.0-31.0 [facility] CenterJloaumfAUZVHCDPKL7173-67-82 14:38:00 Test Item Value Reference Range Interpretation Comments Hgb (test code = Hgb) 12.1 12.0-16.0 [facility] CenterSvgrmjyUNXUKVRXHQ8117-07-20 14:38:00 Test Item Value Reference Range Interpretation Comments RBC (test code = RBC) 4.20 4.20-5.40 [facility] CenterGxcrrvtIROJLGCKSX3996-57-21 14:38:00 Test Item Value Reference Range Interpretation Comments MCV (test code = MCV) 89.2 80.0-98.0 [facility] CenterOlhzouzZHUXBDSXND2598-67-51 14:38:00 Test Item Value Reference Range Interpretation Comments Hct (test code = Hct) 37.5 36.0-48.0 [facility] CenterZoetzfuYPNYPYJNDM1874-72-80 14:38:00 Test Item Value Reference Range Interpretation Comments WBC (test code = WBC) 7.4 3.7-10.4 [facility] CenterYrneohzNOMFXLCJYP8322-59-39 14:38:00 Test Item Value Reference Range Interpretation Comments MCHC (test code = MCHC) 32.3 32.0-36.0 [facility] CenterUpifhskIVAVYMITVQ0604-54-37 14:38:00 Test Item Value Reference Range Interpretation Comments RDW (test code = RDW) 14.3 11.5-14.5 [facility] CenterQbrjfwcDWOUACDYZQ6840-45-04 14:38:00 Test Item Value Reference Range Interpretation Comments MPV (test code = MPV) 9.3 7.4-10.4 [facility] CenterPhkhzdjFEAWUJQRUE9299-89-77 14:38:00 Test Item Value Reference Range Interpretation Comments Platelet (test code = Platelet) 193 133-450 [facility] CenterNtvllmtQHNWEFUNSA5927-51-04 14:38:00 Test Item Value Reference Range Interpretation Comments Basophils # (test code 0.0 See_Comment [Aut omated message] The = Basophils #) system which generated this result tra nsmitted reference range : <=0.2. The reference r lv was not used to int erpret this result as normal/abnormal . [facility] CenterUjdiazpZUQLVUKXBR6582-16-66 14:38:00 Test Item Value Reference Range Interpretation Comments Segs (test code = Segs) 61.4 45.0-75.0 [facility] CenterUeaqpqoQDWXYWMZXO7341-99-32 14:38:00 Test Item Value Reference Range Interpretation Comments Lymphocytes (test code = Lymphocytes) 30.9 20.0-40.0 [facility] CenterUdjxxmoKOSIMOJGDO6016-97-86 14:38:00 Test Item Value Reference Range Interpretation Comments Lymphocytes # (test code = Lymphocytes 2.3 1.0-5.5 #) [facility] CenterUxfajxeNWJHWKKZYP1721-03-13 14:38:00 Test Item Value Reference Range Interpretation Comments Monocytes # (test code 0.4 See_Comment [Aut omated message] The = Monocytes #) system which generated this result tra nsmitted reference range : <=0.8. The reference r lv was not used to int erpret this result as normal/abnormal . [facility] CenterMlwwgeaSTASUJWTAE1588-61-96 14:38:00 Test Item Value Reference Range Interpretation Comments Segs-Bands # (test code = Segs-Bands #) 4.5 1.5-8.1 [facility] CenterElbgydpTJFUUTBROE3695-59-99 14:38:00 Test Item Value Reference Range Interpretation Comments Basophils (test code = 0.5 See_Comment [Aut omated message] The Basophils) system which ge nerated this result tra nsmitted reference range : <=1.0. The reference r lv was not used to int erpret this result as normal/abnormal . [id number] 14:38:00 Test Item Value Reference Range Interpretation Comments Monocytes (test code = Monocytes) 5.8 2.0-12.0 [facility]HjisbqoKMGQRGARGK0418-62-08 14:38:00 Test Item Value Reference Range Interpretation Comments Eosinophils (test code = 1.4 See_Comment [A utomated message] The Eosinophils) system which ge nerated this result tra nsmitted reference range : <=4.0. The reference r lv was not used to int erpret this result as normal/abnormal . [facility] CenterBnqscflSDJKJHBDMJ0429-08-74 14:38:00 Test Item Value Reference Range Interpretation Comments Eosinophils # (test code 0.1 See_Comment [A utomated message] The = Eosinophils #) system whic h generated this result tra nsmitted reference range : <=0.5. The reference r lv was not used to int erpret this result as normal/abnormal . [facility] HospitalAelmprxBLEWYWDIBN1279-54-84 14:38:00 Test Item Value Reference Range Interpretation Comments HIV 1/2 Ab (test code Negative *NA*(08/03/15 = HIV 1/2 Ab) 9:38 AM) [facility] HospitalUhqrekkRMDPYMPVUV8102-22-13 14:38:00 Test Item Value Reference Range Interpretation Comments Hep C Ab (test code = Negative *NA*(08/03/15 Hep C Ab) 9:38 AM) [facility]2016-06-23 14:38:00 Test Item Value Reference Range Interpretation Comments eGFR (test code = eGFR) 79 [facility]2016-06-23 14:38:00 Test Item Value Reference Range Interpretation Comments Sodium Lvl (test code = Sodium Lvl) 144 135-145 [facility]2016-06-23 14:38:00 Test Item Value Reference Range Interpretation Comments Chloride Lvl (test code = Chloride Lvl) 104 95-109 [facility]2016-06-23 14:38:00 Test Item Value Reference Range Interpretation Comments Potassium Lvl (test code = Potassium 4.6 3.5-5.1 Lvl) [facility]2016-06-23 14:38:00 Test Item Value Reference Range Interpretation Comments Calcium Lvl (test code = Calcium Lvl) 9.4 8.5-10.5 [facility]2016-06-23 14:38:00 Test Item Value Reference Range Interpretation Comments CO2 (test code = CO2) 31 24-32 [facility]2016-06-23 14:38:00 Test Item Value Reference Range Interpretation Comments Glucose Lvl (test code = Glucose Lvl) 126 70-99 [facility]2016-06-23 14:38:00 Test Item Value Reference Range Interpretation Comments Creatinine Lvl (test code = Creatinine 0.84 0.50-1.40 Lvl) [facility]2016-06-23 14:38:00 Test Item Value Reference Range Interpretation Comments BUN (test code = BUN) 17 7-22 [facility]2016-06-23 14:38:00 Test Item Value Reference Range Interpretation Comments AGAP (test code = AGAP) 13.6 10.0-20.0 [facility] CenterChwnbeiEWREPJHDNK4454-58-68 14:38:00 Test Item Value Reference Range Interpretation Comments MCH (test code = MCH) 28.8 pg 27.0-31.0 [facility] CenterDnykkvkDYTPBBALJQ4463-76-35 14:38:00 Test Item Value Reference Range Interpretation Comments Hgb (test code = Hgb) 12.1 12.0-16.0 [facility] CenterGrsxcytFXSIRRAIYL8607-24-72 14:38:00 Test Item Value Reference Range Interpretation Comments RBC (test code = RBC) 4.20 4.20-5.40 [facility] CenterGpfjmfwHWOCCPBYGU2904-22-91 14:38:00 Test Item Value Reference Range Interpretation Comments MCV (test code = MCV) 89.2 80.0-98.0 [facility] CenterVbccrcmAPVQHXPRCR7428-48-87 14:38:00 Test Item Value Reference Range Interpretation Comments Hct (test code = Hct) 37.5 36.0-48.0 [facility] CenterZcpxtucTRSXWCPBEZ6768-31-65 14:38:00 Test Item Value Reference Range Interpretation Comments WBC (test code = WBC) 7.4 3.7-10.4 [facility] CenterHdffqdgXWFUGFYYRF1956-17-81 14:38:00 Test Item Value Reference Range Interpretation Comments MCHC (test code = MCHC) 32.3 32.0-36.0 [facility] CenterKuwomtsGGPHSZFXPZ8912-12-87 14:38:00 Test Item Value Reference Range Interpretation Comments RDW (test code = RDW) 14.3 11.5-14.5 [facility] CenterTnscyvrBYHCAEISHC9550-03-02 14:38:00 Test Item Value Reference Range Interpretation Comments MPV (test code = MPV) 9.3 7.4-10.4 [facility] CenterZzomjuiNQJVOXYTFI0523-82-45 14:38:00 Test Item Value Reference Range Interpretation Comments Platelet (test code = Platelet) 193 133-450 [facility] CenterJirudzrKYQGPOAVBU1056-51-65 14:38:00 Test Item Value Reference Range Interpretation Comments Basophils # (test code 0.0 See_Comment [Aut omated message] The = Basophils #) system which generated this result tra nsmitted reference range : <=0.2. The reference r lv was not used to int erpret this result as normal/abnormal . [facility] CenterXmgwbdsZSFELPWMGL5379-74-56 14:38:00 Test Item Value Reference Range Interpretation Comments Segs (test code = Segs) 61.4 45.0-75.0 [facility] CenterBpmlfudMMOIKVBDJW8249-83-51 14:38:00 Test Item Value Reference Range Interpretation Comments Lymphocytes (test code = Lymphocytes) 30.9 20.0-40.0 [facility] CenterRdzubpbNVYHNOMSLY0262-22-59 14:38:00 Test Item Value Reference Range Interpretation Comments Lymphocytes # (test code = Lymphocytes 2.3 1.0-5.5 #) [facility] CenterIiqarxjZETUDDQKOC8288-81-58 14:38:00 Test Item Value Reference Range Interpretation Comments Monocytes # (test code 0.4 See_Comment [Aut omated message] The = Monocytes #) system which generated this result tra nsmitted reference range : <=0.8. The reference r lv was not used to int erpret this result as normal/abnormal . [facility]2016-06-23 14:38:00 Test Item Value Reference Range Interpretation Comments eGFR (test code = eGFR) 79 [facility]2016-06-23 14:38:00 Test Item Value Reference Range Interpretation Comments Sodium Lvl (test code = Sodium Lvl) 144 135-145 [facility]2016-06-23 14:38:00 Test Item Value Reference Range Interpretation Comments Chloride Lvl (test code = Chloride Lvl) 104 95-109 [facility]2016-06-23 14:38:00 Test Item Value Reference Range Interpretation Comments Potassium Lvl (test code = Potassium 4.6 3.5-5.1 Lvl) [facility]2016-06-23 14:38:00 Test Item Value Reference Range Interpretation Comments Calcium Lvl (test code = Calcium Lvl) 9.4 8.5-10.5 [facility]2016-06-23 14:38:00 Test Item Value Reference Range Interpretation Comments CO2 (test code = CO2) 31 24-32 [facility]2016-06-23 14:38:00 Test Item Value Reference Range Interpretation Comments Glucose Lvl (test code = Glucose Lvl) 126 70-99 [facility]2016-06-23 14:38:00 Test Item Value Reference Range Interpretation Comments Creatinine Lvl (test code = Creatinine 0.84 0.50-1.40 Lvl) [facility]2016-06-23 14:38:00 Test Item Value Reference Range Interpretation Comments BUN (test code = BUN) 17 7-22 [facility]2016-06-23 14:38:00 Test Item Value Reference Range Interpretation Comments AGAP (test code = AGAP) 13.6 10.0-20.0 [facility] CenterUjtbfvgKZZGZIXVHU4190-87-78 14:38:00 Test Item Value Reference Range Interpretation Comments MCH (test code = MCH) 28.8 pg 27.0-31.0 [facility] CenterBgiapxbWYMDQIFSYN4230-56-90 14:38:00 Test Item Value Reference Range Interpretation Comments Hgb (test code = Hgb) 12.1 12.0-16.0 [facility] CenterLgobbtuZOETHNKOUI6273-87-49 14:38:00 Test Item Value Reference Range Interpretation Comments RBC (test code = RBC) 4.20 4.20-5.40 [facility] CenterCukmrudEELCMLAFGB9534-24-19 14:38:00 Test Item Value Reference Range Interpretation Comments MCV (test code = MCV) 89.2 80.0-98.0 [facility] CenterXfoyaqbSWXNBTELBM5401-56-44 14:38:00 Test Item Value Reference Range Interpretation Comments Hct (test code = Hct) 37.5 36.0-48.0 [facility] CenterKpkcmluZQOZJDEBDB6477-49-53 14:38:00 Test Item Value Reference Range Interpretation Comments WBC (test code = WBC) 7.4 3.7-10.4 [facility] CenterSeqjqguVXHVQSZLGD7968-10-02 14:38:00 Test Item Value Reference Range Interpretation Comments MCHC (test code = MCHC) 32.3 32.0-36.0 [facility] CenterYrexthnZBXZVOTGMW6183-96-31 14:38:00 Test Item Value Reference Range Interpretation Comments RDW (test code = RDW) 14.3 11.5-14.5 [facility] CenterWrhgjhpFZLQOKFSUI9634-19-78 14:38:00 Test Item Value Reference Range Interpretation Comments MPV (test code = MPV) 9.3 7.4-10.4 [facility] CenterMqiynmzPBRQJITSWC2290-16-49 14:38:00 Test Item Value Reference Range Interpretation Comments Platelet (test code = Platelet) 193 133-450 [facility] CenterYgrfykhORVOTDBDSK7491-17-83 14:38:00 Test Item Value Reference Range Interpretation Comments Basophils # (test code 0.0 See_Comment [Aut omated message] The = Basophils #) system which generated this result tra nsmitted reference range : <=0.2. The reference r lv was not used to int erpret this result as normal/abnormal . [facility] CenterKdztcgkWQAJOMJPCP0258-54-29 14:38:00 Test Item Value Reference Range Interpretation Comments Segs (test code = Segs) 61.4 45.0-75.0 [facility] CenterQtntmxvOOUMDSBPAT5657-87-77 14:38:00 Test Item Value Reference Range Interpretation Comments Lymphocytes (test code = Lymphocytes) 30.9 20.0-40.0 [facility] CenterGvtvoqhMGKEJXERKV0613-66-15 14:38:00 Test Item Value Reference Range Interpretation Comments Lymphocytes # (test code = Lymphocytes 2.3 1.0-5.5 #) [facility] CenterQcfcrivCHOBVNRFMA7174-70-56 14:38:00 Test Item Value Reference Range Interpretation Comments Monocytes # (test code 0.4 See_Comment [Aut omated message] The = Monocytes #) system which generated this result tra nsmitted reference range : <=0.8. The reference r lv was not used to int erpret this result as normal/abnormal . [facility] CenterOpyskrlTIXCHLADIL6164-23-75 14:38:00 Test Item Value Reference Range Interpretation Comments Segs-Bands # (test code = Segs-Bands #) 4.5 1.5-8.1 [facility] CenterYtrvvxsDPGDTYGFBX2326-51-72 14:38:00 Test Item Value Reference Range Interpretation Comments Basophils (test code = 0.5 See_Comment [Aut omated message] The Basophils) system which ge nerated this result tra nsmitted reference range : <=1.0. The reference r lv was not used to int erpret this result as normal/abnormal . [facility] CenterTpgznrhSKXLOMXTLD2310-41-09 14:38:00 Test Item Value Reference Range Interpretation Comments Monocytes (test code = Monocytes) 5.8 2.0-12.0 [facility] CenterGznmfwuRSHENFQXDZ9401-84-58 14:38:00 Test Item Value Reference Range Interpretation Comments Eosinophils (test code = 1.4 See_Comment [A utomated message] The Eosinophils) system which ge nerated this result tra nsmitted reference range : <=4.0. The reference r lv was not used to int erpret this result as normal/abnormal . [facility] CenterCopmlzeFCHYYEPEHC3454-52-47 14:38:00 Test Item Value Reference Range Interpretation Comments Eosinophils # (test code 0.1 See_Comment [A utomated message] The = Eosinophils #) system whic h generated this result tra nsmitted reference range : <=0.5. The reference r lv was not used to int erpret this result as normal/abnormal . [facility] 14:38:00 Test Item Value Reference Range Interpretation Comments HIV 1/2 Ab (test code Negative *NA*(08/03/15 = HIV 1/2 Ab) 9:38 AM) [facility]gsjsxpUTQZFXVPDQ0863-77-84 14:38:00 Test Item Value Reference Range Interpretation Comments Hep C Ab (test code = Negative *NA*(08/03/15 Hep C Ab) 9:38 AM) [facility] Notes Date/Time Note Provider Source 2019-11-24 09:55:51-00:00 PROCEDURE INFORMATION: NISHA Sloan Exam: MR Head Without and With Contrast [...] contrast. 3D rendering (Not supervised by radiologist): [place] P and/or 3D reconstructed images were created by the technologist. Contrast material: DOTAREM; Contrast volume: 20 ml; Contrast route: INTRAVENOUS (IV); COMPARISON: No relevant prior studies available. FINDINGS: Brain: There is no acute cortical infarct, paren chymal hemorrhage or an intra-axial mass. Sellar and parasellar structur es are normal. There is no cerebellar tonsillar ectopia. There is normal fl ow from the 4th portions of both vertebral arteries, the basilar art bill and intracranial carotid arteries. The cochlear, vestibule and 7th and 8th nerve fa scicles are normal. Cerebral ventricles: Normal. No ventriculomegaly . Bones/joints: Unremarkable. The temporomandibula r joints and pterygoid fossa are normal. There is no enhancing intraparenchymal or leptom eningeal abnormality. There is normal enhancement the cavernou s sinus, dural sinuses and deep venous system. Paranasal sinuses: There is a minute mucous rete ntion cyst in the left sphenoid sinus. Mastoid [...] sinus. Ruddy Pool MD On 11/24/2019 11:57:21; GREGG-DILCIA [id number] 2016-04-01 15:16:40-00:00 PROCEDURES: CASSIE Wilcox 1. Right knee arthrocentesis 2. Ultrasound guidance [...] joint space. Using ultrasound guidance a 5 Maori sheathed needle was advanced into the right knee joint space. Aspiration revealed 3 cc clear, ser ous, synovial fluid. Samples were obtained for gram stain and cultures. Subsequently the catheter was removed. No immediate complication was seen. Ultrasound evaluation of the posterior knee/popliteal fossa reveals a small hematoma. IMPRESSION: 1. Ultrasound guided right k nee arthrocentesis. 3 mL of clear, serous synovial fluid aspirated and sample sent for evaluation. 2. Small hematoma noted rosaura g the posterior knee soft tissues/popliteal fossa -- this was not drained, as the hematoma is semi-solid. 3. No abscess identified. 2016-04-01 14:45:01-00:00 Exam: Right lower extremity Doppler venous ultrasound. CASSIE Wilcox Reason for Exam: Pain and swelling right lower e xtremity Comparison Exam: None Discussion: Real-time grayscale, color D oppler imaging, and spectral waveform analysis was performed of the right lower extremity deep venous system. There are no filling defects or lack of compressibility seen wit tnn the deep venous system t o suggest DVT. The waveforms are within normal limits and respond appropriately to augmentation. Impression: 1. Negative right lower extremity Doppler venous ultrasound for DVT. 2015-04-28 10:39:27-00:00 EXAM: Joe Sanabria Renal ultrasound. INDICATION: Hematuria. TECHNIQUE: Grayscale and [...] evaluated. Common iliac artery origins: Not well evaluated. IVC: Visualized portions are unremarkable. Other: None. IMPRESSION: 1. Possible millimetric, nonobstructing left renal calculi. No hydronephrosis.
--- NOTE | 2022-08-18 02:20 | EDPHYS ---
Physician Documentation [facility] Name: Bob Armstrong Age: 61 yrs Sex: Female : 1960 Arrival Date: 08/18/2022 Time: 00:21 Bed 9 Private MD: ED Physician Karan Denis HPI: 08/18 02:49 This 61 yrs old Female presents to ER via Ambulatory with complaints of FOREIGN OBJECT kdr LODGED IN BACK. 02:49 Patient believes she may have some foreign object lodged in her back. She is unsure how kdr it got there. She is aware that she has a mole back there however she feels that this was not present until recently. She does not recall seeing such a skin lesion on her back previously. Patient does have a very small half centimeter or less round soft fleshy colored lesion infrascapular region of her right back. Patient describes it as being very itchy. There is no obvious injury or laceration to her right back nor is there any palpable mass underneath the skin. Patient is otherwise nontoxic on her presentation to the ED and not requiring emergent intervention. 02:51 Onset: The symptoms/episode began/occurred gradually, 3 day(s) ago. Severity of kdr symptoms: At their worst the symptoms were very mild mild in the emergency department the symptoms are unchanged. The patient has not experienced similar symptoms in the past. The patient has not recently seen a physician. 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 - Social history:: Smoking status: Patient denies any tobacco usage or history of. Patient uses CBD, Patient/guardian denies using alcohol. ROS: 02:51 Constitutional: Negative for fever, chills, and weight loss, Eyes: Negative for injury, kdr pain, redness, and discharge, ENT: Negative for injury, pain, and discharge, Neck: Negative for injury, pain, and swelling, Cardiovascular: Negative for chest pain, palpitations, and edema, Respiratory: Negative for shortness of breath, cough, wheezing, and pleuritic chest pain, Abdomen/GI: Negative for abdominal pain, nausea, vomiting, diarrhea, and constipation, Back: Negative for injury and pain, : Negative for injury, bleeding, discharge, and swelling, MS/Extremity: Negative for injury and deformity, Neuro: Negative for headache, weakness, numbness, tingling, and seizure activity. Psych: Negative for depression, anxiety, suicide ideation, homicidal ideation, and hallucinations, Allergy/Immunology: Negative for hives, rash, and allergies, Endocrine: Negative for neck swelling, polydipsia, polyuria, polyphagia, and marked weight changes, Hematologic/Lymphatic: Negative for swollen nodes, abnormal bleeding, and unusual bruising. 02:51 Skin: Positive for lesions, of the right subscapular area. Exam: 02:51 Constitutional: This is a well developed, well nourished patient who is awake, alert, kdr and in no acute distress. Head/Face: Normocephalic, atraumatic. 02:51 Back: There is a small less than half centimeter fleshy lesion to the right infrascapular region. Did not appear infected or is there any drainage from the lesion. There is also no surrounding induration or evidence of a subcutaneous mass or abscess. Patient is otherwise without any obvious injury or object embedded in the skin. Vital Signs: 00:36 BP 126 / 62; Pulse 73; Resp 18; Temp 97.8; Pulse Ox 97% on R/A; Weight 104.33 kg; pf1 Height 5 ft. 11 in. ; Pain 0/10; 02:00 BP 118 / 72; Pulse 70; Resp 16; Pulse Ox 100% on R/A; Pain 0/10; pf1 00:36 Body Mass Index 32.08 (104.33 kg, 180.34 cm) pf1 00:36 Pain Scale: Adult pf1 02:00 Pain Scale: Adult pf1 MDM: 02:20 Patient medically screened. kdr 02:51 Data reviewed: vital signs, nurses notes, lab test result(s), radiologic studies. kdr 08/18 00:58 Order name: CXR XRAY kdr Administered Medications: 02:19 Not Given (do not have in pyxis): Triamcinolone Topical Cream (0.5 %) 1 application pf1 Topical once; Apply to area on back that is irritated Disposition Summary: 08/18/22 02:20 Discharge Ordered Location: Home kdr Problem: new kdr Symptoms: have improved kdr Condition: Stable kdr Diagnosis - Skin lesion right posterior thorax -0.5 cm in diameter kdr Followup: kdr - With: Private Physician - When: 2 - 3 days - Reason: If symptoms return, Further diagnostic work-up, Recheck today's complaints, Continuance of care, Re-evaluation by your physician Discharge Instructions: - Discharge Summary Sheet [facility] [address] - [facility] [place] kdr Forms: - Medication Reconciliation Form kdr - Thank You Letter [facility] [address] [email or web address] kdr Prescriptions: - Triamcinolone Acetonide 0.5 % Topical Cream - apply 1 application by TOPICAL route 2 times per day As needed Applied to kdr lesion on back twice a day as needed for itching; 1 unit; Refills: 0, Product Selection Permitted Signatures: Dis[facility] Karan Moore MD MD kdr Ratna Harding RN RN pf1
--- NOTE | 2022-08-18 02:20 | ER ---
Nurse's Notes [facility] Name: Bob Armstrong Age: 61 yrs Sex: Female : 1960 Arrival Date: 08/18/2022 Time: 00:21 Bed 9 Private MD: Diagnosis: Skin lesion right posterior thorax -0.5 cm in diameter Presentation: 08/18 00:36 Chief complaint: Patient states: brown spot to right mid back region with itching,onset pf1 3 days. Patient stated is feels like a rock is under her skin. Patient denies any fall or injury to skin. 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 Coronavirus screen: Vaccine status: Patient reports receiving the 1st dose of the Covid vaccine. J\\T\\J Client denies travel out of the [place] in the last 14 days. At this time, the client does not indicate any symptoms associated with coronavirus-19. Ebola Screen: Patient negative for fever greater than or equal to 101.5 degrees Fahrenheit, and additional compatible Ebola Virus Disease symptoms. Initial Sepsis Screen: Does the patient meet any 2 criteria? No. Patient's initial sepsis screen is negative. Does the patient have a suspected source of infection? No. Patient's initial sepsis screen is negative. Risk Assessment: Do you want to hurt yourself or someone else? Patient reports no desire to harm self or others. 00:36 Method Of Arrival: Ambulatory pf1 00:36 Acuity: JERRY 5 pf1 Historical: - Allergies: 00:40 Lyrica; pf1 00:40 zpack; pf1 00:40 steroids; pf1 - PMHx: 00:40 Diabetes - NIDDM; "Hole to L macula due to small stroke"; Arthritis; trigeminal pf1 neuralgia; sjorgens syndrome; neuropathy; insomnia; Anxiety; TIA; - PSHx: 00:40 left eye surgery; Tonsillectomy; right arm surgery; uterine ablation; Ligation of pf1 fallopian tube; - Immunization history:: Adult Immunizations up to date, Client reports receiving the 1st dose of the Covid vaccine, Last tetanus immunization: < 5 years ago Flu vaccine is not up to date. - Social history:: Smoking status: Patient denies any tobacco usage or history of. Patient uses CBD, Patient/guardian denies using alcohol. Screenin:[facility] ED Fall Risk Assessment (Adult) History of falling in the last 3 months, pf1 including since admission No falls in past 3 months (0 pts) Confusion or Disorientation No (0 pts) Intoxicated or Sedated No (0 pts) Impaired Gait No (0 pts) Mobility Assist Device Used No (0 pt) Altered Elimination No (0 pt) Score/Fall Risk Level 0 - 2 = Low Risk Oriented to surroundings, Maintained a safe environment, Educated pt \\T\\ family on fall prevention, incl call for assistance when getting out of bed, Assessed \\T\\ reinforced patient's understanding of fall precautions, Provided non-skid footwear, Hourly rounding (assess needs \\T\\ fall precautionary measures) done, Used ambulatory aids as needed (educated on \\T\\ assisted with), Used gait belt as appropriate. Abuse screen: Denies threats or abuse. Nutritional screening: No deficits noted. Tuberculosis screening: No symptoms or risk factors identified. Assessment: 00:40 General: Appears in no apparent distress. comfortable, well groomed, well developed, pf1 Behavior is calm, cooperative, appropriate for age, quiet. 00:40 Pain: Denies pain. Neuro: Level of Consciousness is awake, alert, obeys commands, pf1 Oriented to person, place, time, situation. Cardiovascular: Capillary refill < 3 seconds Patient's skin is warm and dry. Respiratory: No deficits noted. Airway is patent Trachea midline Respiratory effort is even, unlabored, Respiratory pattern is regular, symmetrical. GI: No deficits noted. No signs and/or symptoms were reported involving the gastrointestinal system. : No deficits noted. No signs and/or symptoms were reported regarding the genitourinary system. EENT: No deficits noted. No signs and/or symptoms were reported regarding the EENT system. Derm: Skin is brown, brown spot to right mid back region with itching,onset 3 days. Musculoskeletal: No deficits noted. No signs and/or symptoms reported regarding the musculoskeletal system. 01:40 Reassessment: Patient appears in no apparent distress at this time. Patient and/or pf1 family updated on plan of care and expected duration. Pain level reassessed. Patient is alert, oriented x 3, equal unlabored respirations, skin warm/dry/pink. Patient states symptoms have not improved. Vital Signs: 00:36 BP 126 / 62; Pulse 73; Resp 18; Temp 97.8; Pulse Ox 97% on R/A; Weight 104.33 kg; pf1 Height 5 ft. 11 in. ; Pain 0/10; 02:00 BP 118 / 72; Pulse 70; Resp 16; Pulse Ox 100% on R/A; Pain 0/10; pf1 00:36 Body Mass Index 32.08 (104.33 kg, 180.34 cm) pf1 00:36 Pain Scale: Adult pf1 02:00 Pain Scale: Adult pf1 ED Course: 00:26 Patient arrived in ED. [id number] 00:35 Karan Denis MD is Attending Physician. kdr 00:40 Triage completed. pf1 00:40 Arm band placed on right wrist. pf1 00:40 Patient has correct armband on for positive identification. Bed in low position. Call pf1 light in reach. 01:48 CXR XRAY In Process Unspecified. EDMS 02:45 No provider procedures requiring assistance completed. Patient did not have IV access pf1 during this emergency room visit. Administered Medications: 02:19 Not Given (do not have in pyxis): Triamcinolone Topical Cream (0.5 %) 1 application pf1 Topical once; Apply to area on back that is irritated Medication: 02:46 VIS not applicable for this client. pf1 Outcome: 02:20 Discharge ordered by . kdr 02:45 Discharged to home ambulatory. pf1 02:45 Condition: stable 02:45 Discharge instructions given to patient, Instructed on discharge instructions, follow up and referral plans. Demonstrated understanding of instructions, follow-up care, medications, Prescriptions given X 1. 02:47 Patient left the ED. pf1 Signatures: Dispatcher [employer] EDNE Karan Denis MD MD kdr Jeffries, Jennifer [email or web address] Ratna Harding, RN RN pf1
[2022-08-18 02:56] VITALS: TEMP 97.8
[2022-08-18 02:58] VITALS: BP 118/72; O2SAT 100
--- NOTE | 2022-08-19 13:49 | RAD REPORT ---
EXAM DESCRIPTION: RAD - Chest Single View - 08/18/2022 1:46 am CLINICAL HISTORY: 61 years, Female, right posterior thorax pain COMPARISON: None. FINDINGS: Single view of the chest was obtained portable. No prior films are available for compariso n. The cardiomediastinal silhouette demonstrate to be unremarkable. The heart is not enlarged. The th oracic aorta is unremarkable. The pulmonary vasculature is normal distribution. Costophrenic angles a re sharp. No areas of consolidation or masses are seen. The rest of the soft tissue and bony stru ctures demonstrate to be unremarkable. IMPRESSION: NO ACUTE CARDIOPULMONARY DISEASE SEEN. Electronically signed by: Larry Faye MD 08/18/2022 2:02 AM CDT Due to temporary technical issues with the PACS/Fluency reporting system, reports are being signed by the in house radiologist without review as a courtesy to ensure prompt reporting. The interpreting r adiologist is fully responsible for the content of the report.
== END 2022-08-18 02:47 | disposition home or self-care (01) ==
LOC: ER 00:21
DX: L98.8 Other specified disorders of the skin and subcutaneous tissue (principal); E11.9 Type 2 diabetes mellitus without complications; Z88.1 Allergy status to other antibiotic agents; Z88.8 Allergy status to other drugs, medicaments and biological substances
CPT/HCPCS: 71045; 99283